=== PATIENT | female | born 1965 | race Caucasian/White ===

== ENCOUNTER 2023-02-12 10:02 | Emergency (ER) | payer OTHER, SELFPAY ==
[2023-02-12 10:07] VITALS: BP 128/62; PULSE 84; RESP 26; TEMP 36.9; O2SAT 94; BMI 58.6
--- NOTE | 2023-02-12 10:24 | XR_ITS ---
The [address] [address] Patient Name: DANIELLE MONTANA MRN: [id number] date: 1965 Sex: F Assigned Patient Location: ER Current Patient Location: ER Accession/Order Number: [id number] Exam Date: 02/12/2023 11:02 Report Date: 02/12/2023 11:22 At the request of: GERALDINE NESBITT Procedure: XR chest 2V PROCEDURE: XR chest 2V DATE: 02/12/2023 10:02 AM CDT COMPARISONS: CT chest from 12/29/2020 CLINICAL INDICATION: 57 years Female SHORTNESS OF BREATH FINDINGS: The heart size is normal and stable. There is slightly coarse diffuse increased markings throughout all lung gan. It is noted that there was prominent airspace disease on CT of 12/29/2020. It's possible the slightly coarse diffuse increased markings noted today are chronic lung changes associated with the previous CT findings. Alternatively, the findings on today's exam may represent some diffuse acute inflammatory process. There is no evidence of pleural effusion or pneumothorax. XR/XR chest 2V IMPRESSION: Diffuse slightly coarse increased markings as discussed above. Chronic changes seems most likely. Diffuse inflammatory infiltrate of the lungs is also possible. Electronically authenticated by: GABRIELLA GRANADOS Date: 02/12/2023 11:22
[2023-02-12 10:48] VITALS: RESP 18
[2023-02-12] MEDS: PREDNISONE 20 MG TABLET 60 MG PO (11:02)
[2023-02-12] MEDS: IPRATROPIUM/ALBUTEROL SULFATE 3 ML AMPUL.NEB IH (11:06)
[2023-02-12 11:43] VITALS: BP 130/82; PULSE 76; RESP 20; O2SAT 94
--- NOTE | 2023-02-12 14:44 | ED.URI1 ---
HPI - URI/Sore Throat General Chief Complaint: Upper Respiratory Infection Stated Complaint: URTI COMPLAINTS Time Seen by Provider: 02/12/23 10:28 Source: patient Limitations: no limitations History of Present Illness HPI Narrative: Have history of COPD coming to us with a few days history of cough productive of whitish sputum associated with the congestion and shortness of breath the patient mentioned that he is a COPD year with history of emphysema and she has not been responding to her albuterol at home Denying any chest pain nausea vomiting or any other concerns she also had some runny nose and nasal congestion Related Data Previous Rx's Medication Instructions Recorded azithromycin 250 mg tablet See Rx Instructions PO .COMPLEX #6 02/12/23 (Zithromax Z-Tao) tabs prednisone 50 mg tablet 50 mg PO DAILY 5 days #5 tabs 02/12/23 Allergies Allergy/AdvReac Type Severity Reaction Status Date / Time codeine Allergy Intermediate Verified 02/12/23 10:11 pregabalin [From Lyrica] Allergy Intermediate Verified 02/12/23 10:11 sulfamethoxazole Allergy Intermediate Verified 02/12/23 10:11 [From Bactrim] trimethoprim [From Bactrim] Allergy Intermediate Verified 02/12/23 10:11 Review of Systems ROS Status of ROS 10 or more systems reviewed and unremarkable except as noted in history and below PFSH PFSH Social History Smoking status: Current every day smoker Exam Narrative Exam Narrative: Nurses notes and vital signs reviewed and patient is not hypoxic. General: Well-appearing and in no apparent distress. Skin: Warm, dry, no pallor noted. No rash. Head: Normocephalic, atraumatic. Neck: Supple, non-tender. Eye: Pupils are equal, round and EOMI. No scleral icterus. Ears, Nose, Mouth, and Throat: TM are clear, no nasal mucosal hypertrophy. Oral mucosa is moist, no posterior oropharynx erythema, uvula is mid-line Cardiovascular: Regular Rate and Rhythm without murmur, gallop or rub. Respiratory: Bilateral expiratory lung wheezes in both lung gan Lungs are clear to auscultation, no wheezing, rales or rhonchi Chest Wall: no tenderness Back: No midline thoracic or lumbar vertebral tenderness. No CVA tenderness Musculoskeletal: normal ROM, no calf or popliteal tenderness, no lower extremity edema/swelling GI: Abdomen is soft, non-distended. Normal bowel sounds. No masses appreciated. No tenderness to palpation. No rebound, guarding, or rigidity noted. Neurological: A&O x4. No cranial nerve dysfunction observed. No truncal ataxia. Moves all extremities. Sensation intact. Psychiatric: Cooperative and interactive. Normal mood and affect. Constitutional Vital Signs, click to edit/add: Last Vital Signs Temp 98.4 F 02/12/23 10:07 Pulse 76 02/12/23 11:43 Resp 20 02/12/23 11:43 BP 130/82 02/12/23 11:43 Pulse Ox 94 L 02/12/23 11:43 O2 Del Method Room Air 02/12/23 11:43 Course Vital Signs Vital signs: Vital Signs Temperature 98.4 F 02/12/23 10:07 Pulse Rate 84 02/12/23 10:07 Respiratory Rate 26 H 02/12/23 10:07 Blood Pressure 128/62 02/12/23 10:07 Pulse Oximetry 94 L 02/12/23 10:07 Oxygen Delivery Method Room Air 02/12/23 10:07 Temperature 98.4 F 02/12/23 10:07 Pulse Rate 76 02/12/23 11:43 Respiratory Rate 20 02/12/23 11:43 Blood Pressure 130/82 02/12/23 11:43 Pulse Oximetry 94 L 02/12/23 11:43 Oxygen Delivery Method Room Air 02/12/23 11:43 MDM - URI/Sore Throat MDM Narrative Medical decision making narrative: The patient x-ray showed no acute significant pathology but she have history of COPD and should be covered with antibiotic as well as she already received breathing treatment and prednisone after which she was feeling better The patient was discharged home with a Z-Tao in addition to the prednisone with continue breathing treatment at home she is to come back to the ER in case of any new symptoms or concerns The patient is to follow up with primary care physician in next 2-3 days or to return to the emergency department should any of the signs or symptoms worsen or new symptoms develop. The patient agrees with the following Diagnosis and Treatment plan and the patient will be discharged home. Discharge Plan Discharge Chief Complaint: Upper Respiratory Infection Clinical Impression: COPD exacerbation Patient Disposition: Home, Self-Care Time of Disposition Decision: 11:32 Condition: Good Prescriptions / Home Meds: New azithromycin [Zithromax Z-Tao] 250 mg tablet See Rx Instructions .ROUTE .COMPLEX Qty: 6 0RF Rx Instructions: For 250 mg dose pack: take 500 mg today (day 1), then 250 mg for 4 days (days 2-5) prednisone 50 mg tablet 50 mg PO DAILY 5 Days Qty: 5 0RF Instructions: COPD (Chronic Obstructive Pulmonary Disease) (ED) Stand Alone Forms: Portal Instructions Referrals: Shaikh Vasquez MD [Primary Care Provider] - 1 week Discharge Date/Time: 02/12/23 11:46
== END 2023-02-12 11:46 | disposition home or self-care (01) ==
PROVIDERS: Emergency Provider Emergency Medicine; PCP Internal Medicine
DX: J44.1 Chronic obstructive pulmonary disease with (acute) exacerbation (principal); F17.210 Nicotine dependence, cigarettes, uncomplicated
CPT/HCPCS: 71046; 94640; 99283

== ENCOUNTER 2023-04-24 20:34 | Emergency (ER) | payer OTHER, SELFPAY ==
--- OUTSIDE RECORDS SUMMARY | 2023-04-24 20:42 | XMS_ITS | CCD ---
Author Name Unknown Address [address] [place] [address] Organization [facility] Care Team Providers Care Nursing Home Director Name Role Phone Tanja, Leda Unavailable Unavailable Unavailable Unavailable Unavailable Unavailable Unavailable Unavailable Tanja, Leda Unavailable Unavailable Tanja, Leda Unavailable Unavailable Unavailable Unavailable Unavailable Heath Kirkpatrick Attending Gisselle vailable Heath Kirkpatrick Referring Gisselle vailable Rumschlag, Mignon Primary Care Provider [phone] ALLAN SHARMAMPSAGER Referring Unavailab le RUMSCHLAG, MIGNON Primary Care Unavailable ALLAN SHARMAMPSAGER Referring Unavailab le RUMSCHLAG, MIGNON Primary Care Unavailable RAVISHANKAR KEMPSAGER Referring Unavailab le RUMSCHLAG, MIGNON Primary Care Unavailable Tanja 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, Leda Unavailable DR FLOR RIVERA Attending Unavailable NICOLE, DR FLOR Novoa Admitting Unavailable [facility] Primary Care Unavailable LIYAH, DR EBEN Couch Consulting Unavailblanca KAT, DR FRIEDA Tobar Consulting Unavailblanca e JULISSA, DR LO Hdz Consulting Unavailable NICOLE, DR FLOR Novoa Consulting Unavailable MARKER, DR KHAN Consulting Unavailable NANCI BEEBE Attending Unavailable NANCI BEEBE Admitting Unavailable JULISSA, DR LO Hdz Consulting Unavailable [facility] Primary Care Unavailable NANCI BEEBE Consulting Unavailable QUYNH ARCHER Attending Unavailable QUYNH ARCHER Admitting Unavailable [facility] Primary Care Unavailable GIANNI, QUYNH Consulting Unavailable Allergies Allergy Classification Reported Allergen(s) Allergy Type Date of Onset Reaction(s) Facility (8 sources) codeine; Translations: [Codeine] Drug Allergy 01-19-20 12 Nausea And Vomiting [facility] (4 sources) pregabalin; Translations: [Lyrica] Drug Allergy [facility] (4 sources) sulfamethoxazole / trimethoprim; Translations: [Bactrim] Drug Allergy [facility] (4 sources) -No Environmental Allergies; Translations: [-No Environmental Allergies] Allergy to substance (disorder) [facility] (2 sources) -No Known Food Allergies Allergy to substance (disorder) [facility] (3 sources) NSAIDs Propensity to adverse reactions to drug 02-24-20 15 Other (See Comments) [place], [place] (3 sources) pregabalin Drug Allergy 01-19-20 12 Other (See Comments) [place] (3 sources) Sulfamethoxazole / Trimethoprim Drug Allergy 09-18-19 18 Hives [place] (1 source) pregabalin Drug Allergy 12-31-19 22 [facility] (1 source) Sulfamethoxazole / Trimethoprim Drug Allergy 04-15-20 22 [facility] Medications Current Medications Medication Drug Class(es) Dates Sig (Normalized) Sig (Original) acetaminophen 325 mg oral tablet (3 sources) take 2 tablets by mouth every four hours as needed for pain acetaminophen (TYLENOL) 325 MG tablet Take 650 mg by mouth every 4 hours as needed for Pain 0 Active [id number] actuat albuterol 0.09 mg/actuat metered dose inhaler (8 sources) beta2-Adrenergic Agonist Start: 07-19-2018 Ventolin HFA 108 (90 Base)MCG/ACT Inhalation Aerosol, solution 07/19/2018 Provider: Start: 05-19-2018 End: 05-19-2018 VENTOLIN HFA 90MCG/ACTUAT TX SC 05/19/2018 - 05/19/2018 Provider: take 2 puff(s) by in halation every six hours as needed for wheezing albuterol sulfate HFA 108 (90 Base) MCG/ACT inhaler Inhale 2 puffs into the lungs every 6 hours as needed for Wheezing 0 Active take 1 puff(s) by in halation every six hours as needed Ventolin HFA 90 mcg/actuation inhalation HFA aerosol inhaler inhale 1 puff (90 mcg) by inhalation route every 6 hours as needed take 1 puff(s) by in halation every six hours as needed Ventolin HFA 90 mcg/actuation inhalation HFA aerosol inhaler inhale 1 puff (90 mcg) by inhalation route every 6 hours as needed 60 actuat budesonide 0.08 mg/actuat / formoterol fumarate 0.0045 mg/actuat metered dose inhaler (3 sources) Corticosteroid, beta2-Adrenergic Agonist take 2 puff(s) by inhalation twice daily budesonide-formoterol (SYMBICORT) 80-4.5 MCG/ACT AERO Inhale 2 puffs into the lungs 2 times daily 0 Active Calcium (2 sources) Phosphate Binder, Calcium Start: 2018 Calcium 600MG Oral Tablet 07/19/2018 Provider: Start: 09-14-2017 End: 09-14-2017 CALCIUM 600 600 mg calcium(1 ,500 MG) [facility] 09/14/2017 - 09/14/2017 Provider: calcium carbonate 1250 mg / cholecalciferol 200 unt oral tablet (3 sources) Vitamin D Start: 04-09-2014 take 1 tablet by mouth once daily, then take 2.5-500 tablets by mouth once calcium-vitamin D (OSCAL 500/200 D-3) 500-200 MG-UNIT per tablet TAKE ONE TABLET BY MOUTH ONCE A DAY 30 tablet 3 04/09/2014 Active cetirizine hydrochloride 10 mg oral tablet (3 sources) Histamine-1 Receptor Antagonist Start: 07-19-2018 ZyrTEC Allergy 10MG Oral Tablet 07/19/2018 Provider: Start: 11-14-2017 take 1 tablet by jayson once daily at bedtime as needed for cough Zyrtec 10 mg oral tablet 11/14/2017 take 1 tablet (10 mg) by oral route once daily at bedtime as needed for cough/congestion Start: 11-14-2017 End: 11-14-2017 ZYRTEC 10 mg [facility] 11/14/2017 - 11/14/2017 Provider: donepezil hydrochloride 10 mg oral tablet (3 sources) take 1 tablet by mouth once daily donepezil (ARICEPT) 10 MG tablet Take 10 mg by mouth nightly 0 Active DULoxetine 30 mg delayed release oral capsule (15 sources) Serotonin and Norepinephrine Reuptake Inhibitor Start: 07-20-19 DULoxetine HCl 30MG Oral Capsule, delayed-release particles 07/19/2018 Provider: Start: 05-19-2018 End: 05-19-2018 DULOXETINE 30MG [facility] 019 - 05/19/2018 Provider: Start: 05-19-2018 End: 05-19-2018 DULOXETINE 60MG [facility] 019 - 05/19/2018 Provider: Start: 03-07-2018 DULoxetine HCl 60MG Oral Capsule, delayed-release particles 07/19/2018 Provider: Start: 03-07-2018 take 1 capsule by [facility] once daily duloxetine 30 mg oral capsule,delayed release(DR/EC) 03/07/2018 take 1 capsule (30 mg) by oral route once daily, take with 60 mg capsule to equal 90 mg daily Start: 03-07-2018 End: 03-07-2018 DULOXETINE 60MG [facility] 018 - 03/07/2018 Provider: Start: 03-07-2018 End: 03-07-2018 DULOXETINE 30MG [facility] 018 - 03/07/2018 Provider: take 1 capsule by [facility] once daily duloxetine 30 mg oral capsule,delayed release(DR/EC) take 1 capsule (30 mg) by oral route once daily ergocalciferol 1.25 mg oral capsule (4 sources) Provitamin D2 Compound Start: 07-19-2018 Ergocalciferol [id number] Oral Capsule, conventional 07/19/2018 Provider: Start: 09-14-2017 take 1 capsule by [facility] every week Vitamin D2 50,000 unit oral capsule 09/14/2017 take 1 capsule (50,000 unit) by oral route once weekly 60 actuat fluticasone propionate 0.5 mg/actuat / salmeterol 0.05 mg/actuat dry powder inhaler (2 sources) Corticosteroid, beta2-Adrenergic Agonist Start: 07-20-2018 Advair Diskus 500-50MCG/DOSE Inhalation Aerosol Powder Breath Activated 07/20/2018 Provider: Leda Agrawal CNP Start: 07-12-2018 End: 07-20-2018 Advair Diskus 250-50MCG/DOSE Inhalation Aerosol Powder Breath Activated 07/12/2018 - 07/20/2018 Provider: Leda Agrawal CNP gabapentin 600 mg oral tablet (7 sources) Anti-epileptic Agent Start: 07-19-2018 Gabapenti n 600MG Oral Tablet 07/19/2018 Provider: Start: 05-19-2018 End: 05-19-2018 GABAPENTIN 300 mg MISC 05/19 - 05/19/2018 Provider: Start: 02-13-2018 End: 02-13-2018 Gabapentin 600MG OR TABS - 02/13/2018 Provider: Start: 09-26-2017 take 1 capsule by mo ut three times daily gabapentin 300 mg oral capsule 09/26/2017 take 1 capsule (300 mg) by oral route 3 times per day Start: 09-26-2017 End: 09-26-2017 GABAPENTIN 300 mg MISC 09/26 - 09/26/2017 Provider: hydroCHLOROthiazide 12.5 mg / lisinopril 10 mg oral tablet (9 sources) Thiazide Diuretic, Angiotensin Converting Enzyme Inhibitor Start: 07-19-2018 Lisinopril-hydroCHLOROthiazi de 10-12.5MG Oral Tablet 07/19/2018 Provider: Start: 05-19-2018 End: 05-19-2018 Lisinopril-hydroCHLOROthiazi de 10-12.5MG TABS 05/19/2018 - 05/19/2018 Provider: Conversion Provider Start: 09-26-2017 take 1 tablet by jayson once daily lisinopril-hydrochlorothiazide 10-12.5 m g oral tablet 09/26/2017 take 1 tablet by oral route once daily Start: 09-26-2017 End: 09-26-2017 Lisinopril-hydroCHLOROthiazi de 10-12.5MG TABS 09/26/2017 - 09/26/2017 Provider: hydrOXYzine pamoate 50 mg oral capsule (4 sources) Antihistamine Start: 07-19-2018 hydrOXYzine Pa moate 50MG Oral Capsule, conventional 07/19/2018 Provider: Start: 05-19-2018 End: 05-19-2018 HYDROXYZINE PAMOATE 50MG MIS C 05/19/2018 - 05/19/2018 Provider: Start: 03-13-2018 take 1 capsule by mo uth twice daily hydroxyzine pamoate 50 mg oral capsule 03/13/2018 take 1 capsule (50 mg) by oral route 2 times per day Start: 03-13-2018 End: 03-13-2018 HYDROXYZINE PAMOATE 50MG MIS C 03/13/2018 - 03/13/2018 Provider: meloxicam 15 mg oral tablet (5 sources) Nonsteroidal Anti-inflammatory Drug Start: 07-19-2018 Mobic 15MG Oral Tablet 07/19/2018 Provider: Start: 09-14-2017 End: 09-14-2017 Mobic 15MG OR TABS - 09/14/2017 Provider: omeprazole 40 mg delayed release oral capsule (9 sources) Proton Pump Inhibitor Start: 07-19-2018 Omeprazole 40MG Oral Capsule, delayed-release 07/19/2018 Provider: Start: 05-19-2018 End: 05-19-2018 Omeprazole 40MG OR CPDR 04/25 - 05/19/2018 Provider: Conversion Provider Start: 09-26-2017 End: 09-26-2017 take 1 capsule by mouth once daily before mealtime omeprazole 40 mg oral capsule,delayed release(DR/EC) 09/26/2017 take 1 capsule (40 mg) by oral route once daily before a meal take 2 capsules by m outh once daily omeprazole (PRILOSEC) 20 MG delayed release capsule Take 40 mg by mouth daily 0 Active QUEtiapine 25 mg oral tablet (3 sources) Atypical Antipsychotic take 1 tablet by mouth twice daily QUEtiapine (SEROQUEL) 25 MG tablet Take 25 mg by mouth 2 times daily 0 Active tiotropium 0.018 mg inhalant powder (3 sources) Anticholinergic Start: take 1 capsule by inhalation once daily tiotropium (SPIRIVA HANDIHALER) 18 MCG inhalation capsule Inhale 1 capsule into the lungs daily 30 capsule 11 02/21/2019 Active traMADol hydrochloride 50 mg oral tablet (6 sources) Opioid Agonist Start: traMADol HCl 50MG Oral Tablet 07/19/2018 Provider: Start: 05-19-2018 End: 05-19-2018 TRAMADOL 50 mg MISC 05/19/19 19 - 05/19/2018 Provider: Start: 11-14-2017 take 1 tablet by jayson th every eight hours as needed for pain tramadol 50 mg oral tablet 11/14/2017 take 1 tablet (50 mg) by oral route every 8 hours as needed for chronic back pain / osteoarthritis (M51.36/M19.90) Start: 11-14-2017 End: 11-14-2017 TRAMADOL 50 mg [facility] 11/15/19 18 - 11/14/2017 Provider: take 1 tablet by jayson th three times daily as needed tramadol 50 mg oral tablet take 1 tablet by oral route 3 times a day as needed traZODone hydrochloride 100 mg oral tablet (6 sources) Serotonin Reuptake Inhibitor Start: 07-19-2018 traZODone HCl 100MG Oral Tablet 07/19/2018 Provider: Start: 05-19-2018 End: 05-19-2018 TRAZODONE 100 mg [facility] 2018 - 05/19/2018 Provider: Start: 03-13-2018 take 1 tablet by jayson th once daily at bedtime trazodone 100 mg oral tablet 03/13/2018 take 1 tablet (100 mg) by oral route once daily at bedtime Start: 03-13-2018 End: 03-13-2018 TRAZODONE 100 mg [facility] 2017 - 03/13/2018 Provider: take 1 tablet by jayson th once daily at bedtime trazodone 100 mg oral tablet take 1 tablet (100 mg) by oral route once daily at bedtime Completed/Discontinued Medications Medication Drug Class(es) Dates Sig (Normalized) Sig (Original) calcium carbonate 1500 mg oral tablet (3 sources) Start: 09-14-2017 take 1 tablet by mouth twice daily Calcium 600 600 mg calcium (1,500 mg) oral tablet 09/14/2017 take 1 tablet by oral route twice daily Clindamycin (2 sources) Lincosamide Antibacterial Start: 02-13-2018 End: 02-13-2018 CLINDAMYCIN HCL 300MG MISC 02/13/2018 - 02/13/2018 Provider: Start: 02-13-2018 End: 02-20-2018 take 1 capsule by mouth twice daily clindamycin HCl 300 mg oral capsule 02/13/2018 02/20/2018 take 1 capsule (300 mg) by oral route 2 times per day for 7 days furosemide 20 mg oral tablet (4 sources) Loop Diuretic Start: 05-19-2018 End: 05-19-2018 Furosemide 20MG OR TABS 05/19/2018 - 05/19/2018 Provider: Conversion Provider take 1 tablet by mouth once harmeet y furosemide 20 mg oral tablet take 1 tablet (20 mg) by oral route once daily ibuprofen 800 mg oral tablet (4 sources) Nonsteroidal Anti-inflammatory Drug Start: 05-19-2018 End: 05-19-2018 Ibuprofen 800MG OR TABS 05/19/2018 - 05/19/2018 Provider: Conversion Provider End: 09-14-2017 take 1 tablet by mouth three times daily at mealtime ibuprofen 800 mg oral tablet 09/14/2017 take 1 tablet (800 mg) by oral route 3 times per day with food lidocaine 50 mg/ml topical cream (5 sources) Antiarrhythmic, Amide Local Anesthetic Start: 09-19-2017 lidocaine 5 % topical cream 09/19/2017 apply to affected area every 4-6 hours as needed for pain Start: 09-19-2017 lidocaine 5 % topical cream 09/19/2017 apply to affected area every 4-6 hours as needed for pain Start: 09-19-2017 End: 09-19-2017 Lidocaine 5% EX CREA 018 - 09/19/2017 Provider: mupirocin 20 mg/ml topical cream (2 sources) RNA Synthetase Inhibitor Antibacterial Start: 02-13-2018 End: 02-13-2018 Bactroban 2% EX CREA 02/13/2018 - 02/13/2018 Provider: Start: 02-13-2018 Bactroban 2 % topical cream 02/13/2018 apply a small amount to the affected area by topical route 3 times per day x 14 days predniSONE 20 mg oral tablet (2 sources) Start: 11-14-2017 End: 11-14-2017 take 1 tablet by mouth twice daily prednisone 20 mg oral tablet 11/14/2017 take 1 tablet (20 mg) by oral route 2 times per day x 7 days VITAMIN D2 50,000UNIT MISC (2 sources) Start: 05-19-2018 End: 05-19-2018 VITAMIN D2 50,000UNIT MISC 05/19/2018 - 05/19/2018 Provider: Start: 09-14-2017 End: 09-14-2017 VITAMIN D2 50,000UNIT MISC 0 09/14/2017 - 09/14/2017 Provider: Problems Active Problems Problem Classification Problem Date Documented Date Episodic/Chronic Anxiety disorders (1 source) Generalized anxiety disorder; Translations: [GENERALIZED ANXIETY DISORDER] Onset: 04-19-2022 Chronic Bacterial infection; unspecified site (2 sources) Bacterial infection, unspecified, in conditions classified elsewhere and of unspecified site; Translations: [Methicillin resistant Staphylococcus aureus in conditions classified elsewhere and of unspecified site] Onset: 02-13-2018 Episodic Cancer of cervix (3 sources) Malignant tumor of cervix; Translations: [Malignant neoplasm of cervix uteri, unspecified site] Onset: 05-22-2018 Chronic Chronic obstructive pulmonary disease and bronchiectasis (8 sources) Other emphysema; Translations: [Pulmonary emphysema] Onset: 01-23-2013 Resolved: 11-08-2013 11-08-2013 Chronic Disorders of lipid metabolism (2 sources) Hyperlipidemia, unspecified; Translations: [Mixed hyperlipidemia] Onset: 01-05-2022 Chronic E Codes: Fall (1 source) Unspecified fall, initial encounter; Translations: [UNSPECIFIED FALL INITIAL ENCOUNTER] Onset: 04-19-2022 Episodic Esophageal disorders (7 sources) Esophageal reflux; Translations: [Gastroesophageal reflux disease] Onset: 01-19-2012 01-19-2012 Chronic Essential hypertension (8 sources) Unspecified essential hypertension; Translations: [Essential hypertension] Onset: 01-19-2012 Resolved: 04-20-2015 04-20-2015 Chronic Fracture of upper limb (1 source) Ill-defined closed fractures of upper limb Episodic Malaise and fatigue (2 sources) Other malaise and fatigue Onset: 01-25-2018 Episodic Mood disorders (4 sources) Depressive disorder; Translations: [Bipolar disorder, unspecified] Onset: 11-08-2013 11-08-2013 Chronic Osteoarthritis (5 sources) Osteoarthrosis, unspecified whether generalized or localized, site unspecified; Translations: [Osteoarthritis] Onset: 01-19-2012 01-19-2012 Chronic Other aftercare (1 source) Other prison (current) drug therapy; Translations: [OTH STEAM BOX HAND CURRENT DRUG THERAPY] Onset: 04-19-2022 Episodic Other circulatory disease (1 source) Personal history of transient ischemic attack (TIA), and cerebral infarction without residual deficits; Translations: [PERS HX TIA AND CI NO RESID DEFICIT] Onset: 04-19-2022 Episodic Other connective tissue disease (2 sources) Muscle weakness (generalized) Onset: 01-25-2018 Episodic Other connective tissue disease (1 source) Myalgia and myositis, unspecified Episodic Other connective tissue disease (4 sources) Pain in right foot; Translations: [PAIN IN RIGHT FOOT] Onset: 02-08-2022 Episodic Other hereditary and degenerative nervous system conditions (1 source) Restless legs; Translations: [Restless leg] Chronic Other hereditary and degenerative nervous system conditions (1 source) Restless legs syndrome (RLS) Chronic Other hereditary and degenerative nervous system conditions (1 source) Restless legs syndrome; Translations: [Restless legs syndrome] Onset: 05-22-2018 Chronic Other lower respiratory disease (1 source) Shortness of breath Onset: 04-26-2018 Episodic Other nervous system disorders (1 source) Meralgia paresthetica Chronic Other nervous system disorders (1 source) Other chronic pain Onset: 02-13-2018 Chronic Other non-traumatic joint disorders (3 sources) Pain in left knee; Translations: [PAIN IN LEFT KNEE] Onset: 04-15-2022 Episodic Other non-traumatic joint disorders (1 source) Pain in right ankle and joints of right foot; Translations: [PAIN IN RIGHT ANKLE] Onset: 02-11-2022 Episodic Other nutritional; endocrine; and metabolic disorders (6 sources) Body Mass Index 50.0-59.9, adult Onset: 09-14-2017 Chronic Other nutritional; endocrine; and metabolic disorders (3 sources) Body mass index 40+ - severely obese; Translations: [Morbid obesity with BMI of 50.0-59.9, adult] Onset: 11-08-2013 11-08-2013 Chronic Other nutritional; endocrine; and metabolic disorders (1 source) Morbid (severe) obesity due to excess calories; Translations: [MORBID SEVERE OBES D/T EXCESS LUMA] Onset: 04-19-2022 Chronic Other nutritional; endocrine; and metabolic disorders (1 source) Body mass index (BMI) 60.0-69.9, adult; Translations: [BODY MASS INDEX BMI 60.0-69.9 ADULT] Onset: 04-19-2022 Chronic Other nutritional; endocrine; and metabolic disorders (1 source) Body mass index (BMI) 50.0-59.9, adult; Translations: [BODY MASS INDEX BMI 50.0-59.9 ADULT] Onset: 01-05-2022 Chronic Residual codes; unclassified (1 source) Unspecified sleep apnea Onset: 10-12-2017 Chronic Residual codes; unclassified (2 sources) Hallucinations Onset: 01-25-2018 Episodic Spondylosis; intervertebral disc disorders; other back problems (2 sources) Degeneration of lumbar or lumbosacral intervertebral disc Onset: 11-14-2017 Chronic Spondylosis; intervertebral disc disorders; other back problems (3 sources) Chronic low back pain; Translations: [Chronic neck pain] Episodic Substance-related disorders (4 sources) Smoker; Translations: [Nicotine dependence, cigarettes, uncomplicated] Onset: 01-19-2012 Resolved: 01-23-2013 12-29-2014 Chronic Superficial injury; contusion (1 source) Contusion of left knee, initial encounter; Translations: [CONTUSION LEFT KNEE INITIAL ENC] Onset: 04-19-2022 Episodic Unclassified (1 source) CONTACT W/AND (SUSP) EXPOS COVID-19; Translations: [CONTACT W/AND (SUSP) EXPOS COVID-19] Onset: 01-05-2022 Past or Other Problems Problem Classification Problem Date Documented Da te Episodic/Chronic Administrative/social admission (1 source) Other reasons for seeking consultation Onset: 09-14-2017 Episodic Gastrointestinal hemorrhage (4 sources) Hemorrhage of anus and rectum; Translations: [Gastrointestinal hemorrhage, unspecified] Onset: 12-30-2021 Episodic Noninfectious gastroenteritis (1 source) Noninfective gastroenteritis and colitis, unspecified; Translations: [NONINFECTIVE GE AND COLITIS UNS] Onset: 01-05-2022 Episodic Other bone disease and musculoskeletal deformities (1 source) 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 Other bone disease and musculoskeletal deformities (1 source) Other disorders of bone and cartilage Onset: 09-14-2017 Episodic Other connective tissue disease (2 sources) Fibromyositis; Translations: [Fibromyalgia] Onset: 05-22-2018 Episodic Other connective tissue disease (3 sources) Fibromyalgia; Translations: [Fibromyalgia syndrome] Onset: 11-08-2013 11-08-2013 Episodic Other nervous system disorders (3 sources) Meralgia paresthetica of right leg; Translations: [Meralgia paresthetica of right side] Onset: 11-08-2013 Resolved: 03-27-2018 03-27-2018 Other non-traumatic joint disorders (3 sources) Pain in joint, lower leg Onset: 09-14-2017 Episodic Other non-traumatic joint disorders (1 source) Pain in joint, pelvic region and thigh Onset: 09-20-2017 Episodic Other nutritional; endocrine; and metabolic disorders (3 sources) Obesity; Translations: [Obesity] Onset: 01-19-2012 Resolved: 11-08-2013 11-08-2013 Chronic Other screening for suspected conditions (not mental disorders or infectious disease) (2 sources) Screening for diabetes mellitus; Translations: [Special screening for malignant neoplasms of colon] Onset: 09-14-2017 Episodic Residual codes; unclassified (1 source) Family history of other neurological diseases Onset: 01-25-2018 Episodic Residual codes; unclassified (1 source) Edema Onset: 01-25-2018 Episodic Residual codes; unclassified (1 source) Memory loss Onset: 01-25-2018 Episodic Residual codes; unclassified (3 sources) Memory impairment; Translations: [Memory change] Onset: 02-13-2018 02-13-2018 Episodic Results Test Name Value Interpretation Reference Range Facility ANTIBODY ID PANELon 01-03-20 22 ANTIBODY ID PANEL Antibody ID Anti-Jka Normal [facility] Comment on above: Performed By: #### C MP, HSTROPN #### [facility] [address] [place] [address] Dr. Steve Valentin CBC AUTO DIFFon 12-31-2021 BASO # 0.0 103/ul Normal 0.0-0.1 [facility] Comment on above: Performed By: #### C MP, HSTROPN #### [facility] [address] [place] [address] Dr. Steve Valentin Basophils/100 WBC (Bld) 0.9 % Normal 0.2-2.0 [facility] Comment on above: Performed By: #### C MP, HSTROPN #### [facility] [address] [address] [address] Steve Valentin EO # 0.2 103/ul Normal 0.0-0.7 [facility] Comment on above: Performed By: #### C MP, HSTROPN #### [facility] [address] [address] [address] Steve Valentin Eosinophils/100 WBC (Bld) 4.3 % Normal 0.9-7.0 [facility] Comment on above: Performed By: #### C TABBY, HSTROPN #### [facility] [address] [place] [address] Dr. Steve Valentin Erythrocyte distribution width (RBC) [Ratio] 14.1 % Normal 11.0-15.0 [facility] Comment on above: Performed By: #### C TABBY, HSTROPN #### [facility] [address] [place] [address] Dr. Steve Valentin Hematocrit (Bld) [Volume fraction] 34.6 % Critically low 36.0-48.0 [facility] Comment on above: Performed By: #### C TABBY, HSTROPN #### [facility] [address] [place] [address] Dr. Steve Valentin Hemoglobin (Bld) [Mass/Vol] 10.9 g/dL Critically low 12.0-16.0 [facility] Comment on above: Performed By: #### C TABBY, HSTROPN #### [facility] [address] [place] [address] Dr. Steve Valentin IG # 0.01 10e3/ul Normal 0.00-0.03 [facility] Comment on above: Performed By: #### C TABBY, HSTROPN #### [facility] [address] [place] [address] Dr. Steve Valentin IG % 0.3 % Normal 0.0-0.5 [facility] Comment on above: Performed By: #### C TABBY, HSTROPN #### [facility] [address] [place] [address] Dr. Steve Valentin LYMPH # 0.9 103/ul Critically low 1.2-3.8 [facility] Comment on above: Performed By: #### C TABBY, HSTROPN #### [facility] [address] [place] [address] Dr. Steve Valentin Lymphocytes/100 WBC (Bld) 26.3 % Normal 20.5-60.0 [facility] Comment on above: Performed By: #### C TABBY, HSTROPN #### [facility] [address] [place] [address] Dr. Steve Valentin MANUAL DIFF REQ NO Normal [facility] Comment on above: Performed By: #### C MP, HSTROPN #### [facility] [address] [place] [address] Dr. Steve Valentin MCH (RBC) [Entitic mass] 26.7 pg Normal 26.7-34.0 [facility] Comment on above: Performed By: #### C MP, HSTROPN #### [facility] [address] [place] [address] Dr. Steve Valentin MCHC (RBC) [Mass/Vol] 31.5 g/dL Normal 29.9-35.2 [facility] Comment on above: Performed By: #### C MP, HSTROPN #### [facility] [address] [place] [address] Dr. Steve Valentin MCV (RBC) [Entitic vol] 84.8 fL Normal 81.0-99.0 [facility] Comment on above: Performed By: #### C MP, HSTROPN #### [facility] [address] [place] [address] Dr. Steve Valentin MONO # 0.3 103/ul Normal 0.3-0.8 [facility] Comment on above: Performed By: #### C MP, HSTROPN #### [facility] [address] [place] [address] Dr. Steve Valentin Monocytes/100 WBC (Bld) 9.5 % Normal 1.7-12.0 [facility] Comment on above: Performed By: #### C MP, HSTROPN #### [facility] [address] [place] [address] Dr. Steve Valentin NEUT # 2.0 103/ul Normal 1.4-6.5 [facility] Comment on above: Performed By: #### C MP, HSTROPN #### [facility] [address] [place] [address] Dr. Steve Valentin Neutrophils/100 WBC (Bld) 58.7 % Normal 43.0-75.0 [facility] Comment on above: Performed By: #### C TABBY HSTROPN #### [facility] [address] [place] [address] Dr. Steve Valentin Platelet mean volume (Bld) [Entitic vol] 10.5 fL Normal 9.5-13.5 [facility] Comment on above: Performed By: #### C TABBY, HSTROPN #### [facility] [address] [place] [address] Dr. Steve Valentin PLT 164 103/ul Normal 150-450 [facility] Comment on above: Performed By: #### C TABBY, HSTROPN #### [facility] [address] [place] [address] Dr. Steve Valentin RBC 4.08 106/ul Critically low 4.20-5.40 [facility] Comment on above: Performed By: #### C TABBY HSTROPN #### [facility] [address] [place] [address] Dr. Steve Valentin WBC 3.5 103/ul Critically low 4.0-11.0 [facility] Comment on above: Performed By: #### C TABBY, HSTROPN #### [facility] [address] [place] [address] Dr. Steve Valentin PROF 14(COMP METB)on 022 Albumin [Mass/Vol] 3.0 g/dL Critically low 3.4-5.0 [facility] Comment on above: Performed By: #### C MP #### [facility] [address] [place] [address] Dr. Steve Valentin Albumin/Globulin [Mass ratio] 1.0 {ratio} Normal [facility] Comment on above: Performed By: #### C MP #### [facility] [address] [place] [address] Dr. Steve Valentin ALP [Catalytic activity/Vol] 56 U/L Normal 46-116 [facility] Comment on above: Performed By: #### C MP #### [facility] [address] [address] [address] Steve Valentin ALT [Catalytic activity/Vol] 20 U/L Normal 14-59 [facility] Comment on above: Performed By: #### C MP #### [facility] [address] [place] [address] Dr. Steve Valentin Anion gap [Moles/Vol] 9.3 mmol/L Normal [facility] Comment on above: Performed By: #### C MP #### [facility] [address] [address] [address] Steve Valentin AST [Catalytic activity/Vol] 17 U/L Normal 15-37 [facility] Comment on above: Performed By: #### C MP #### [facility] [address] [place] [address] Dr. Steve Valentin Bilirubin [Mass/Vol] 0.2 mg/dL Normal 0.2-1.0 [facility] Comment on above: Performed By: #### C MP #### [facility] [address] [place] [address] Dr. Steve Valentin Calcium [Mass/Vol] 8.8 mg/dL Normal 8.5-10.1 [facility] Comment on above: Performed By: #### C MP #### [facility] [address] [place] [address] Dr. Steve Valentin Chloride [Moles/Vol] 106 mmol/L Normal 98-107 [facility] Comment on above: Performed By: #### C MP #### [facility] [address] [place] [address] Dr. Steve Valentin CO2 [Moles/Vol] 26.5 mmol/L Normal 21.0-32.0 [facility] Comment on above: Performed By: #### C MP #### [facility] [address] [place] [address] Dr. Steve Valentin Creatinine [Mass/Vol] 0.92 mg/dL Normal 0.55-1.02 [facility] Comment on above: Performed By: #### C MP #### [facility] [address] [place] [address] Dr. Steve Valentin EGFR-AF RWANDAN >60 Normal >=60 [facility] Comment on above: Performed By: #### C MP #### [facility] [address] [address] [address] Steve Valentin EGFR-NON AF RWANDAN >60 Normal >=60 [facility] Comment on above: Performed By: #### C MP #### [facility] [address] [address] [address] Steve Valentin Globulin (S) [Mass/Vol] 2.9 g/dL Normal [facility] Comment on above: Performed By: #### C MP #### [facility] [address] [address] [address] Steve Valentin Glucose [Mass/Vol] 97 mg/dL Normal 74-106 [facility] Comment on above: Performed By: #### C MP #### [facility] [address] [address] [address] Steve Valentin Potassium [Moles/Vol] 3.8 mmol/L Normal 3.5-5.1 [facility] Comment on above: Performed By: #### C MP #### [facility] [address] [address] [address] Steve Valentin Protein [Mass/Vol] 5.9 g/dL Critically low 6.4-8.2 [facility] Comment on above: Performed By: #### C MP #### [facility] [address] [address] [address] Steve Vlaentin Sodium [Moles/Vol] 138 mmol/L Normal 136-145 [facility] Comment on above: Performed By: #### C MP #### [facility] [address] [address] [address] Steve Valentin Urea nitrogen [Mass/Vol] 5.0 mg/dL Critically low 7.0-18.0 [facility] Comment on above: Performed By: #### C MP #### [facility] [address] [address] [address] Steve Valentin Urea nitrogen/Creatinin e [Mass ratio] 5.4 mg/mg Normal [facility] Comment on above: Performed By: #### C MP #### [facility] [address] [address] [address] Steve Valentin CBC AUTO DIFFon 12-30-2021 BASO # 0.0 103/ul Normal 0.0-0.1 [facility] Comment on above: Performed By: #### C BC #### [facility] [address] [address] [address] Steve Valentin Basophils/100 WBC (Bld) 0.5 % Normal 0.2-2.0 [facility] Comment on above: Performed By: #### C BC #### [facility] [address] [address] [address] Steve Valentin EO # 0.1 103/ul Normal 0.0-0.7 [facility] Comment on above: Performed By: #### C BC #### [facility] [address] [address] [address] Steve Valentin Eosinophils/100 WBC (Bld) 3.2 % Normal 0.9-7.0 [facility] Comment on above: Performed By: #### C BC #### [facility] [address] [place] [address] Dr. Steve Valentin Erythrocyte distribution width (RBC) [Ratio] 14.0 % Normal 11.0-15.0 [facility] Comment on above: Performed By: #### C BC #### [facility] [address] [place] [address] Dr. Steve Valentin Hematocrit (Bld) [Volume fraction] 38.3 % Normal 36.0-48.0 [facility] Comment on above: Performed By: #### C BC #### [facility] [address] [address] [address] Steve Valentin Hemoglobin (Bld) [Mass/Vol] 11.7 g/dL Critically low 12.0-16.0 [facility] Comment on above: Performed By: #### C BC #### [facility] [address] [address] [address] Steve Valentin IG # 0.01 10e3/ul Normal 0.00-0.03 [facility] Comment on above: Performed By: #### C BC #### [facility] [address] [place] [address] Dr. Steve Valentin IG % 0.2 % Normal 0.0-0.5 [facility] Comment on above: Performed By: #### C BC #### [facility] [address] [place] [address] Dr. Steve Valentin LYMPH # 1.3 103/ul Normal 1.2-3.8 [facility] Comment on above: Performed By: #### C BC #### [facility] [address] [place] [address] Dr. Steve Valentin Lymphocytes/100 WBC (Bld) 29.6 % Normal 20.5-60.0 [facility] Comment on above: Performed By: #### C BC #### [facility] [address] [place] [address] Dr. Steve Valentin MANUAL DIFF REQ NO Normal [facility] Comment on above: Performed By: #### C BC #### [facility] [address] [place] [address] Dr. Steve Valentin MCH (RBC) [Entitic mass] 26.0 pg Critically low 26.7-34.0 [facility] Comment on above: Performed By: #### C BC #### [facility] [address] [place] [address] Dr. Steve Valentin MCHC (RBC) [Mass/Vol] 30.5 g/dL Normal 29.9-35.2 [facility] Comment on above: Performed By: #### C BC #### [facility] [address] [place] [address] Dr. Steve Valentin MCV (RBC) [Entitic vol] 85.1 fL Normal 81.0-99.0 [facility] Comment on above: Performed By: #### C BC #### [facility] [address] [place] [address] Dr. Steve Valentin MONO # 0.5 103/ul Normal 0.3-0.8 [facility] Comment on above: Performed By: #### C BC #### [facility] [address] [place] [address] Dr. Steve Valentin Monocytes/100 WBC (Bld) 10.6 % Normal 1.7-12.0 [facility] Comment on above: Performed By: #### C BC #### [facility] [address] [place] [address] Dr. Steve Valentin NEUT # 2.4 103/ul Normal 1.4-6.5 [facility] Comment on above: Performed By: #### C BC #### [facility] [address] [place] [address] Dr. Steve Valentin Neutrophils/100 WBC (Bld) 55.9 % Normal 43.0-75.0 [facility] Comment on above: Performed By: #### C BC #### [facility] [address] [place] [address] Dr. Steve Valentin Platelet mean volume (Bld) [Entitic vol] 10.0 fL Normal 9.5-13.5 [facility] Comment on above: Performed By: #### C BC #### [facility] [address] [place] [address] Dr. Steve Valentin PLT 169 103/ul Normal 150-450 [facility] Comment on above: Performed By: #### C BC #### [facility] [address] [place] [address] Dr. Steve Valentin RBC 4.50 106/ul Normal 4.20-5.40 [facility] Comment on above: Performed By: #### C BC #### [facility] [address] [place] [address] Dr. Steve Valentin WBC 4.4 103/ul Normal 4.0-11.0 [facility] Comment on above: Performed By: #### C BC #### [facility] [address] [place] [address] Dr. Steve Valentin BASO # 0.0 103/ul Normal 0.0-0.1 [facility] Comment on above: Performed By: #### C BC #### [facility] [address] [place] [address] Dr. Steve Valentin Basophils/100 WBC (Bld) 0.4 % Normal 0.2-2.0 [facility] Comment on above: Performed By: #### C BC #### [facility] [address] [place] [address] Dr. Steve Valentin EO # 0.2 103/ul Normal 0.0-0.7 [facility] Comment on above: Performed By: #### C BC #### [facility] [address] [place] [address] Dr. Steve Valentin Eosinophils/100 WBC (Bld) 2.6 % Normal 0.9-7.0 [facility] Comment on above: Performed By: #### C BC #### [facility] [address] [place] [address] Dr. Steve Valentin Erythrocyte distribution width (RBC) [Ratio] 13.9 % Normal 11.0-15.0 [facility] Comment on above: Performed By: #### C BC #### [facility] [address] [place] [address] Dr. Steve Valentin Hematocrit (Bld) [Volume fraction] 39.1 % Normal 36.0-48.0 [facility] Comment on above: Performed By: #### C BC #### [facility] [address] [place] [address] Dr. Steve Valentin Hemoglobin (Bld) [Mass/Vol] 12.3 g/dL Normal 12.0-16.0 [facility] Comment on above: Performed By: #### C BC #### [facility] [address] [place] [address] Dr. Steve Valentin IG # 0.02 10e3/ul Normal 0.00-0.03 [facility] Comment on above: Performed By: #### C BC #### [facility] [address] [place] [address] Dr. Steve Valentin IG % 0.4 % Normal 0.0-0.5 [facility] Comment on above: Performed By: #### C BC #### [facility] [address] [place] [address] Dr. Steve Valentin LYMPH # 1.1 103/ul Critically low 1.2-3.8 [facility] Comment on above: Performed By: #### C BC #### [facility] [address] [place] [address] Dr. Steve Valentin Lymphocytes/100 WBC (Bld) 18.9 % Critically low 20.5-60.0 [facility] Comment on above: Performed By: #### C BC #### [facility] [address] [place] [address] Dr. Steve Valentin MANUAL DIFF REQ NO Normal [facility] Comment on above: Performed By: #### C BC #### [facility] [address] [place] [address] Dr. Steve Valentin MCH (RBC) [Entitic mass] 26.3 pg Critically low 26.7-34.0 [facility] Comment on above: Performed By: #### C BC #### [facility] [address] [place] [address] Dr. Steve Valentin MCHC (RBC) [Mass/Vol] 31.5 g/dL Normal 29.9-35.2 [facility] Comment on above: Performed By: #### C BC #### [facility] [address] [place] [address] Dr. Steve Valentin MCV (RBC) [Entitic vol] 83.7 fL Normal 81.0-99.0 [facility] Comment on above: Performed By: #### C BC #### [facility] [address] [place] [address] Dr. Steve Valentin MONO # 0.6 103/ul Normal 0.3-0.8 [facility] Comment on above: Performed By: #### C BC #### [facility] [address] [place] [address] Dr. Steve Valentin Monocytes/100 WBC (Bld) 10.0 % Normal 1.7-12.0 [facility] Comment on above: Performed By: #### C BC #### [facility] [address] [place] [address] Dr. Steve Valentin NEUT # 3.9 103/ul Normal 1.4-6.5 [facility] Comment on above: Performed By: #### C BC #### [facility] [address] [place] [address] Dr. Steve Valentin Neutrophils/100 WBC (Bld) 67.7 % Normal 43.0-75.0 [facility] Comment on above: Performed By: #### C BC #### [facility] [address] [place] [address] Dr. Steve Valentin Platelet mean volume (Bld) [Entitic vol] 10.0 fL Normal 9.5-13.5 [facility] Comment on above: Performed By: #### C BC #### [facility] [address] [place] [address] Dr. Steve Valentin PLT 200 103/ul Normal 150-450 [facility] Comment on above: Performed By: #### C BC #### [facility] [address] [place] [address] Dr. Steve Valentin RBC 4.67 106/ul Normal 4.20-5.40 [facility] Comment on above: Performed By: #### C BC #### [facility] [address] [place] [address] Dr. Steve Valentin WBC 5.7 103/ul Normal 4.0-11.0 [facility] Comment on above: Performed By: #### C BC #### [facility] [address] [place] [address] ABD/PELV W CONon 12-31-19 CT ABD/PELV W CON EXAMINATION: CT ABD/PELV W CON HISTORY: Lower gastrointestinal hemorrhage ; blood in stool COMPARISON: No relevant comparison available. TECHNIQUE: Axial, Coronal, and Sagittal images were created with IV contrast. Dose reduction techniques were achieved by using automated exposure control and/or adjustment of mA and/or kV according to patient size and/or use of iterative reconstruction technique. FINDINGS: LUNG BASES: No visible pulmonary or pleural disease. LIVER: No enlargement, atrophy, suspicious density, or significant focal lesion. BILIARY: No dilatation or calcification. PANCREAS: No lesion, fluid collection, or abnormal duct dilatation. SPLEEN: No enlargement or focal lesion. ADRENALS: No mass or enlargement. KIDNEYS: No mass, obstruction, or calcification. BOWEL/MESENTERY: Mild circumferential wall thickening of the distal transverse colon and descending colon without significant pericolonic inflammatory changes. Diverticulosis of sigmoid colon without acute inflammatory changes. No obstruction or focal wall thickening/mass. AORTA/VASCULAR: No aneurysm or dissection. RETROPERITONEUM: No mass or adenopathy. LYMPH NODES: No adenopathy. URINARY BLADDER: No visible focal wall thickening, lesion, or calculus. PELVIC ORGANS: Hysterectomy. ABDOMINAL WALL: No mass or hernia. BONES: L5-S1 moderate degenerative disc disease. OTHER: Negative. IMPRESSION: 1. Suspect mild colitis of the distal transverse and descending colon. 2. Diverticulosis of sigmoid colon. 3. No appreciable mass. No obstruction. Electronically authenticated by: LO COSTA Date: 2021-12-30 08:30 Normal [facility] Covid-19 PCR (CVDTB)on SARS-CoV-2 (COVID-19) RNA RADHA+probe Ql (Unsp spec) Not detected Normal NOT DETECTED [facility] Comment on above: Result Comment: When diagnostic testing is negative, the possibility of a false negative should be considered in the context of a patient's recent exposures and the presence of clinical signs and symptoms consistent with SARS-CoV-2. This test is not yet approved or cleared by the [place] FDA. When there are no FDA-approved or cleared tests available, and other criteria are met, FDA can make tests available under an emergency access mechanism called an Emergency Use Authorization (EUA). The EUA for this test is supported by the [place] of Health and Human Service's declaration that circumstances exist to justify the emergency use of in vitro diagnostics for the detection and/or diagnosis of the virus that causes COVID-19. This EUA will remain in effect for the duration of the COVID-19 declaration justifying emergency of IVDs, unless it is terminated or revoked by the FDA (after which the test may no longer be used). Performed By: #### C VDTB #### [facility] [address] [place] [address] Dr. Steve Valentin DIRECT COOMBSon 12-30-2021 DIRECT AMARJIT Negative Normal [facility] Comment on above: Performed By: #### C TABBY, HSTROPN #### [facility] [address] [place] [address] Dr. Steve Valentin LACTATE/LACTIC ACIDon 2021 Lactate [Moles/Vol] 1.2 mmol/L Normal 0.4-1.9 [facility] Comment on above: Performed By: #### L ACT #### [facility] [address] [place] [address] Dr. Steve Valentin PROF 14(COMP METB)on 022 Albumin [Mass/Vol] 3.4 g/dL Normal 3.4-5.0 [facility] Comment on above: Performed By: #### C TABBY, HSTROPN #### [facility] [address] [place] [address] Dr. Steve Valentin Albumin/Globulin [Mass ratio] 1.1 {ratio} Normal [facility] Comment on above: Performed By: #### C TABBY, HSTROPN #### [facility] [address] [place] [address] Dr. Steve Valentin ALP [Catalytic activity/Vol] 66 U/L Normal 46-116 [facility] Comment on above: Performed By: #### C TABBY, HSTROPN #### [facility] [address] [place] [address] Dr. Steve Valentin ALT [Catalytic activity/Vol] 18 U/L Normal 14-59 [facility] Comment on above: Performed By: #### C TABBY, HSTROPN #### [facility] [address] [place] [address] Dr. Steve Valentin Anion gap [Moles/Vol] 9.1 mmol/L Normal [facility] Comment on above: Performed By: #### C TABBY, HSTROPN #### [facility] [address] [place] [address] Dr. Steve Valentin AST [Catalytic activity/Vol] 14 U/L Critically low 15-37 [facility] Comment on above: Performed By: #### C TABBY, HSTROPN #### [facility] [address] [address] [address] Steve Valentin Bilirubin [Mass/Vol] 0.3 mg/dL Normal 0.2-1.0 [facility] Comment on above: Performed By: #### C MP, HSTROPN #### [facility] [address] [address] [address] Steve Valentin Calcium [Mass/Vol] 9.2 mg/dL Normal 8.5-10.1 [facility] Comment on above: Performed By: #### C MP, HSTROPN #### [facility] [address] [address] [address] Steve Valentin Chloride [Moles/Vol] 104 mmol/L Normal 98-107 [facility] Comment on above: Performed By: #### C MP, HSTROPN #### [facility] [address] [place] [address] Dr. Steve Valentin CO2 [Moles/Vol] 25.5 mmol/L Normal 21.0-32.0 [facility] Comment on above: Performed By: #### C MP, HSTROPN #### [facility] [address] [address] [address] Steve Valentin Creatinine [Mass/Vol] 0.94 mg/dL Normal 0.55-1.02 [facility] Comment on above: Performed By: #### C MP, HSTROPN #### [facility] [address] [place] [address] Dr. Steve Valentin EGFR-AF RWANDAN >60 Normal >=60 [facility] Comment on above: Performed By: #### C MP, HSTROPN #### [facility] [address] [place] [address] Dr. Steve Valentin EGFR-NON AF RWANDAN >60 Normal >=60 [facility] Comment on above: Performed By: #### C MP, HSTROPN #### [facility] [address] [place] [address] Dr. Steve Valentin Globulin (S) [Mass/Vol] 3.1 g/dL Normal [facility] Comment on above: Performed By: #### C MP, HSTROPN #### [facility] [address] [address] [address] Steve Valentin Glucose [Mass/Vol] 98 mg/dL Normal 74-106 [facility] Comment on above: Performed By: #### C MP, HSTROPN #### [facility] [address] [place] [address] Dr. Steve Valentin Potassium [Moles/Vol] 3.6 mmol/L Normal 3.5-5.1 [facility] Comment on above: Performed By: #### C MP, HSTROPN #### [facility] [address] [address] [address] Steve Valentin Protein [Mass/Vol] 6.5 g/dL Normal 6.4-8.2 [facility] Comment on above: Performed By: #### C MP, HSTROPN #### [facility] [address] [place] [address] Dr. Steve Valentin Sodium [Moles/Vol] 135 mmol/L Critically low 136-145 [facility] Comment on above: Performed By: #### C MP, HSTROPN #### [facility] [address] [place] [address] Dr. Steve Valentin Urea nitrogen [Mass/Vol] 11.0 mg/dL Normal 7.0-18.0 [facility] Comment on above: Performed By: #### C MP, HSTROPN #### [facility] [address] [place] [address] Dr. Steve Valentin Urea nitrogen/Creatinin e [Mass ratio] 11.7 mg/mg Normal [facility] Comment on above: Performed By: #### C MP, HSTROPN #### [facility] [address] [place] [address] Dr. Steve Valentin TROPONIN, HIGH SENSITIVITYon 12-30-2021 HSTROP 8.6 pg/mL Normal 4.0-51.3 [facility] Comment on above: Result Comment: CUT- OFF POINTS HAVE BEEN ESTABLISHED BASED ON THE FOURTH UNIVERSAL DEFINITIONS OF MYOCARDIAL INFARCTION. THE UPPER REFERENCE LIMIT (URL) OF TROPONIN, DEFINED THE 99TH PERCENTILE OF cTnI DISTRIBUTION IN A REFERENCE POPULATION, HAS BEEN CONFIRMED THE DECISION THRESHOLD FOR TX DIAGNOSIS. Performed By: #### C MP, HSTROPN #### [facility] [address] [place], [place] [address] Dr. Steve Valentin TYPE AND SCREENon 12-30-2021 TYPE AND SCREEN Positive Normal [facility] Comment on above: Performed By: #### T NS #### [facility] [address] [place], [place] [address] Dr. Steve Valentin XR CERVICAL SPINE (2-3 VIEWS )on 01-20-2020 XR CERVICAL SPINE (2-3 VIEWS) EXAMINATION: XRAY VIEWS OF THE CERVICAL SPINE 01/20/2020 9:56 am COMPARISON: None. HISTORY: ORDERING SYSTEM PROVIDED HISTORY: Chronic neck pain TECHNOLOGIST PROVIDED HISTORY: chronic neck pain with left arm pain FINDINGS: There is moderate C5-6 and marked C6-7 joint space compromise with mild to moderate anterior and mild posterior spurring at these levels. The remaining disc spaces and vertical heights of the vertebral bodies are maintained No fracture, dislocation or significant prevertebral soft tissue swelling IMPRESSION: Multilevel degenerative changes Interpreted by: Yaritza Pinedo MD Signed by: Yaritza Pinedo MD 01/20/20 Final result Normal [facility] Multilevel degenerative changes [place], [place] EXAMINATION: XRAY VIEWS OF THE CERVICAL SPINE 01/20/2020 9:56 am COMPARISON: None. HISTORY: ORDERING SYSTEM PROVIDED HISTORY: Chronic neck pain TECHNOLOGIST PROVIDED HISTORY: chronic neck pain with left arm pain FINDINGS: There is moderate C5-6 and marked C6-7 joint space compromise with mild to moderate anterior and mild posterior spurring at these levels. The remaining disc spaces and vertical heights of the vertebral bodies are maintained No fracture, dislocation or significant prevertebral soft tissue swelling [place], [place] Tarik, Mhpn Incoming Radiant Results From [employer] - 01/20/2020 11:34 AM EDT EXAMINATION: XRAY VIEWS OF THE CERVICAL SPINE 01/20/2020 9:56 am COMPARISON: None. HISTORY: ORDERING SYSTEM PROVIDED HISTORY: Chronic neck pain TECHNOLOGIST PROVIDED HISTORY: chronic neck pain with left arm pain FINDINGS: There is moderate C5-6 and marked C6-7 joint space compromise with mild to moderate anterior and mild posterior spurring at these levels. The remaining disc spaces and vertical heights of the vertebral bodies are maintained No fracture, dislocation or significant prevertebral soft tissue swelling IMPRESSION: Multilevel degenerative changes [facility] ID XR LUMBAR SPINE (2-3 VIEWS)o n 01-20-2020 XR LUMBAR SPINE (2-3 VIEWS) EXAMINATION: THREE XRAY VIEWS OF THE LUMBAR SPINE 01/20/2020 9:56 am COMPARISON: None. HISTORY: ORDERING SYSTEM PROVIDED HISTORY: Chronic bilateral low back pain without sciatica TECHNOLOGIST PROVIDED HISTORY: chronic low back pain FINDINGS: 5 lumbar type vertebral bodies. Straightening. No loss vertebral body height. Slight (1-2 mm) anterolisthesis L4 on L5. Moderate-severe intervertebral disc space narrowing L5-S1 with endplate sclerosis, spondylosis and milder facet arthrosis. Slight spondylosis and facet arthrosis elsewhere in the lumbar spine. No destructive or blastic lesion. Pedicles and paravertebral soft tissue structures WNL. Large amount of retained stool right colon. IMPRESSION: No acute abnormality lumbosacral spine. Degenerative findings most severe at L5-S1, with evidence DDD. Interpreted by: Mitesh Ho MD Signed by: Mitesh Ho MD 01/20/20 Final result Normal [facility] No acute abnormality lumbosacral spine. Degenerative findings most severe at L5-S1, with evidence DDD. [facility] ID EXAMINATION: THREE XRAY VIEWS OF THE LUMBAR SPINE 01/20/2020 9:56 am COMPARISON: None. HISTORY: ORDERING SYSTEM PROVIDED HISTORY: Chronic bilateral low back pain without sciatica TECHNOLOGIST PROVIDED HISTORY: chronic low back pain FINDINGS: 5 lumbar type vertebral bodies. Straightening. No loss vertebral body height. Slight (1-2 mm) anterolisthesis L4 on L5. Moderate-severe intervertebral disc space narrowing L5-S1 with endplate sclerosis, spondylosis and milder facet arthrosis. Slight spondylosis and facet arthrosis elsewhere in the lumbar spine. No destructive or blastic lesion. Pedicles and paravertebral soft tissue structures WNL. Large amount of retained stool right colon. [place], [place] Tarik, M[facility] Incoming Radiant Results From [employer] - 01/20/2020 12:11 PM EDT EXAMINATION: THREE XRAY VIEWS OF THE LUMBAR SPINE 01/20/2020 9:56 am COMPARISON: None. HISTORY: ORDERING SYSTEM PROVIDED HISTORY: Chronic bilateral low back pain without sciatica TECHNOLOGIST PROVIDED HISTORY: chronic low back pain FINDINGS: 5 lumbar type vertebral bodies. Straightening. No loss vertebral body height. Slight (1-2 mm) anterolisthesis L4 on L5. Moderate-severe intervertebral disc space narrowing L5-S1 with endplate sclerosis, spondylosis and milder facet arthrosis. Slight spondylosis and facet arthrosis elsewhere in the lumbar spine. No destructive or blastic lesion. Pedicles and paravertebral soft tissue structures WNL. Large amount of retained stool right colon. IMPRESSION: No acute abnormality lumbosacral spine. Degenerative findings most severe at L5-S1, with evidence DDD. [facility], ID Hematologyon 01-25-2018 Basophils Auto #/vol (Bld) 0.7 % Invalid Interpretation Code [facility] Basophils/100 WBC Auto (Bld) 0.0 K/uL Invalid Interpretation Code 0.0-0.1 [facility] Eosinophils/100 WBC Auto (Bld) 3.2 % Invalid Interpretation Code [facility] Erythrocyte distribution width Auto Ratio (RBC) 14.2 % Invalid Interpretation Code 10.8-14.8 [facility] Hematocrit Auto Volume Fraction (Bld) 34.70 % Invalid Interpretation Code 36.0-48.0 [facility] Hemoglobin S Solubility test Ql (Bld) 11.7 Invalid Interpretation Code 12.0-16.0 [facility] Lymphocytes/100 WBC Auto (Bld) 43.3 % Invalid Interpretation Code [facility] MCH Auto Entitic mass (RBC) 27.1 pg Invalid Interpretation Code 27.0-34.0 [facility] MCHC Auto mass conc (RBC) 33.7 g/dL Invalid Interpretation Code 31.0-36.0 [facility] MCV Auto Entitic volume (RBC) 80.5 fL Invalid Interpretation Code 80.-100. [facility] Monocytes/100 WBC Auto (Bld) 6.5 % Invalid Interpretation Code [facility] Neutrophils/100 WBC Auto (Bld) 46.1 % Invalid Interpretation Code [facility] Nucleated RBC/100 WBC Ratio (Bld) 0.1 10*3/uL Invalid Interpretation Code 0.1-0.4 [facility] Nucleated RBC/100 WBC Ratio (Bld) 1.9 10*3/uL Invalid Interpretation Code 0.8-5.2 [facility] Nucleated RBC/100 WBC Ratio (Bld) 0.3 10*3/uL Invalid Interpretation Code 0.1-0.9 [facility] Nucleated RBC/100 WBC Ratio (Bld) 2.0 10*3/uL Invalid Interpretation Code 1.3-9.1 [facility] RBC Auto #/vol (Bld) 4.310 10*6/uL Invalid Interpretation Code 4.00-5.50 [facility] Metabolic Panelon 01-25-2018 Albumin mass conc 4.10 g/dL Invalid Interpretation Code 3.5-5.2 [facility] ALP enzyme act/vol 50 U/L Invalid Interpretation Code 30-111 [facility] ALT enzyme act/vol 14 U/L Invalid Interpretation Code 5-40 [facility] Anion gap 3 molar conc 12 mmol/L Invalid Interpretation Code 10-19 [facility] AST enzyme act/vol 13 U/L Invalid Interpretation Code 9-40 [facility] Calcium mass conc 9.90 mg/dL Invalid Interpretation Code 8.5-10.5 [facility] Chloride molar conc 103 mmol/L Invalid Interpretation Code 95-107 [facility] CO2 molar conc 28 mmol/L Invalid Interpretation Code 19-31 [facility] Creatinine mass conc 1.0 mg/dL Invalid Interpretation Code 0.6-1.3 [facility] Glucose mass conc 89 mg/dL Invalid Interpretation Code 70-99 [facility] Potassium molar conc 4.30 mmol/L Invalid Interpretation Code 3.5-5.4 [facility] Protein mass conc 6.0 g/dL Invalid Interpretation Code 6.1-8.3 [facility] Protein mass conc 0.59 g/dL Invalid Interpretation Code <0.5 [facility] Sodium molar conc 143 mmol/L Invalid Interpretation Code 135-146 [facility] Urea nitrogen mass conc 14.0 mg/dL Invalid Interpretation Code 8-23 [facility] Otheron 01-25-2018 Bilirubin Ql (U) 0.2 Invalid Interpretation Code <1.3 [facility] WBC LM Ql (Sput) 4.4 Invalid Interpretation Code 3.7-10.8 [facility] [employer] 74.5 Invalid Interpretation Code >59 [facility] 237 Invalid Interpretation Code 150.-450. 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 [facility] Otheron 09-20-2017 3 Invalid Interpretation Code [facility] 3 Invalid Interpretation Code [facility] Cardiacon 09-14-2017 Cholesterol 220 mg/dL Invalid Interpretation Code <200 [facility] HDL Cholesterol 77.0 mg/dL Invalid Interpretation Code >39 [facility] Triglyceride 113.0 mg/dL Invalid Interpretation Code <150 [facility] Hematologyon 09-14-2017 Basophils Auto #/vol (Bld) 1.0 % Invalid Interpretation Code [facility] [employer] Basophils/100 WBC Auto (Bld) 0.1 K/uL Invalid Interpretation Code 0.0-0.1 [facility] [employer] Eosinophils/100 leukocytes 2.9 % Invalid Interpretation Code [facility] [employer] Erythrocyte distribution width Auto Ratio (RBC) 14.1 % Invalid Interpretation Code 10.8-14.8 [facility] Erythrocytes (RBC) 4.230 10*6/uL Invalid Interpretation Code 4.00-5.50 [facility] [employer] Hematocrit (HCT) 37.0 % Invalid Interpretation Code 36.0-48.0 [facility] Hemoglobin S presence 11.7 Invalid Interpretation Code 12.0-16.0 [facility] Lipoprotein a mass conc 0.2 10*3/uL Invalid Interpretation Code 0.1-0.4 [facility] Lipoprotein a mass conc 2.0 10*3/uL Invalid Interpretation Code 0.8-5.2 [facility] Lipoprotein a mass conc 0.5 10*3/uL Invalid Interpretation Code 0.1-0.9 [facility] Lipoprotein a mass conc 2.6 10*3/uL Invalid Interpretation Code 1.3-9.1 [facility] Lymphocytes/100 leukocytes 37.6 % Invalid Interpretation Code [facility] [employer] MCH 27.7 pg Invalid Interpretation Code 27.0-34.0 [facility] MCHC mass conc (RBC) 31.6 g/dL Invalid Interpretation Code 31.0-36.0 [facility] MCV 87.5 fL Invalid Interpretation Code 80.-100. [facility] Monocytes/100 leukocytes 8.8 % Invalid Interpretation Code [facility] [employer] Neutrophils/100 leukocytes 49.5 % Invalid Interpretation Code [facility] WBC (Leukocytes) 5.2 10*3/uL Invalid Interpretation Code 3.7-10.8 [facility] [employer] Otheron 09-14-2017 Cholesterol crystals Infrared spectroscopy Ql (Stone) 220 mg/dL Invalid Interpretation Code <200 [facility] [employer] Cholesterol to HDL Ratio 2.9 {ratio} Invalid Interpretation Code <5 [facility] [employer] LDL to HDL Ratio 1.6 Invalid Interpretation Code <3.5 [facility] Lipoprotein.beta/L ipoprotein.alpha mass ratio 1.6 Invalid Interpretation Code <3.5 [facility] [employer] PreB-LP SerPl-mCnc 23.0 mg/dL Invalid Interpretation Code <30 [facility] PreB-LP SerPl-mCnc 120.0 mg/dL Invalid Interpretation Code <130 [facility] [employer] WBC LM Ql (Sput) 5.2 Invalid Interpretation Code 3.7-10.8 [facility] 298 Invalid Interpretation Code 150.-450. [facility] Thyroidon 09-14-2017 Thyroid stimulating hormone (TSH) 2.270 uIU/mL Invalid Interpretation Code 0.40-4.10 [facility] Thyroxine (T4) free 0.990 ng/dL Invalid Interpretation Code 0.80-1.90 [facility] Vital Signs Date Time Vital Sign Value Performing Clinician Khanhi lity 02-13-2018 13:08-0400 BMI (Body Mass Index) 56.47 kg/m2 [facility] 02-13-2018 13:08-0400 Body Temperature 98 [degF] [facility] 02-13-2018 13:08-0400 BP Diastolic 80 mm[Hg] [facility] 02-13-2018 13:08-0400 BP Systolic 124 mm[Hg] [facility] 02-13-2018 13:08-0400 BSA (Body Surface Area) 2.[address] [facility] 02-13-2018 13:08-0400 Height 153.[address] [facility] 02-13-2018 13:08-0400 Pulse (Heart Rate) 74 /min [facility] 02-13-2018 13:08-0400 Pulse Oximetry 97 % [facility] 02-13-2018 13:08-0400 Respiratory Rate 20 /min [facility] 02-13-2018 13:08-0400 Weight 133.[address] [facility] 02-13-2018 10:08-0400 Body height 153.67 cm Leda Agrawal CNP Work Phone: [facility] Work Phone: 02-13-2018 10:08-0400 Body mass index (BMI) [Ratio] 56.5 kg/m2 Leda Agrawal CNP Work Phone: [facility] Work Phone: 02-13-2018 10:08-0400 Body surface area Derived from formula 2.21 m2 Leda Agrawal CNP Work Phone: [facility] Work Phone: 02-13-2018 10:08-0400 Body temperature 98 [degF] Leda Agrawal CNP Work Phone: [facility] Work Phone: 02-13-2018 10:08-0400 Body weight 133.36 kg Leda Agrawal CNP Work Phone: [facility] Work Phone: 02-13-2018 10:08-0400 Diastolic blood pressure 80 mm[Hg] Leda Agrawal CNP Work Phone: [facility] Work Phone: 02-13-2018 10:08-0400 Heart rate 74 /min Leda Agrawal CNP Work Phone: [facility] Work Phone: 02-13-2018 10:08-0400 Respiratory rate 20 /min Leda Agrawal CNP Work Phone: [facility] Work Phone: 02-13-2018 10:08-0400 Systolic blood pressure 124 mm[Hg] Leda Agrawal CNP Work Phone: [facility] Work Phone: 01-25-2018 12:47-0400 BMI (Body Mass Index) 56.47 kg/m2 Leda Agrawal [facility] 01-25-2018 12:47-0400 Body Temperature 98.4 [degF] [facility] 01-25-2018 12:47-0400 BP Diastolic 82 mm[Hg] [facility] 01-25-2018 12:47-0400 BP Systolic 122 mm[Hg] [facility] 01-25-2018 12:47-0400 BSA (Body Surface Area) 2.[address] [facility] 01-25-2018 12:47-0400 Height 153.[address] [facility] 01-25-2018 12:47-0400 Pulse (Heart Rate) 73 /min [facility] 01-25-2018 12:47-0400 Pulse Oximetry 96 % [facility] 01-25-2018 12:47-0400 Respiratory Rate 18 /min [facility] 01-25-2018 12:47-0400 Weight 133.[address] [facility] 01-25-2018 09:47-0400 Body height 153.67 cm Leda Tanja [facility] Work Phone: [facility] Work Phone: 01-25-2018 09:47-0400 Body mass index (BMI) [Ratio] 56.5 kg/m2 Leda Tanja [facility] Work Phone: [facility] Work Phone: 01-25-2018 09:47-0400 Body surface area Derived from formula 2.21 m2 Leda Tanja [facility] Work Phone: [facility] Work Phone: 01-25-2018 09:47-0400 Body temperature 98.4 [degF] Leda Agrawal CNP Work Phone: [facility] Work Phone: 01-25-2018 09:47-0400 Body weight 133.36 kg Leda Agrawal CNP Work Phone: [facility] Work Phone: 01-25-2018 09:47-0400 Diastolic blood pressure 82 mm[Hg] Leda Agrawal CNP Work Phone: [facility] Work Phone: 01-25-2018 09:47-0400 Heart rate 73 /min Leda Agrawal CNP Work Phone: [facility] Work Phone: 01-25-2018 09:47-0400 Respiratory rate 18 /min Leda Agrawal CNP Work Phone: [facility] Work Phone: 01-25-2018 09:47-0400 Systolic blood pressure 122 mm[Hg] Leda Agrawal CNP Work Phone: [facility] Work Phone: 11-14-2017 18:20-0400 BMI (Body Mass Index) 56.47 kg/m2 Leda Tanja [facility] 11-14-2017 18:20-0400 Body Temperature 97.4 [degF] 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 [facility] 11-14-2017 18:20-0400 BP Diastolic 80 mm[Hg] [facility] 11-14-2017 18:20-0400 BP Systolic 130 mm[Hg] [facility] 11-14-2017 18:20-0400 BSA (Body Surface Area) 2.[address] [facility] 11-14-2017 18:20-0400 Height 153.67 cm Leda Agrawal [facility] 11-14-2017 18:20-0400 Pulse (Heart Rate) 96 /min 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 [facility] 11-14-2017 18:20-0400 Pulse Oximetry 95 % [facility] Tanja [facility] 11-14-2017 18:20-0400 Respiratory Rate 18 /min 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 [facility] 11-14-2017 18:20-0400 Weight 133.36 kg [facility] Tanja [facility] 11-14-2017 15:20-0400 Body height 153.67 cm Leda Agrawal CNP Work Phone: [facility] Work Phone: 11-14-2017 15:20-0400 Body mass index (BMI) [Ratio] 56.5 kg/m2 Leda Agrawal CNP Work Phone: [facility] Work Phone: 11-14-2017 15:20-0400 Body surface area Derived from formula 2.21 m2 Leda Agrawal CNP Work Phone: [facility] Work Phone: 11-14-2017 15:20-0400 Body temperature 97.4 [degF] Leda Agrawal CNP Work Phone: [facility] Work Phone: 11-14-2017 15:20-0400 Body weight 133.36 kg Leda Agrawal CNP Work Phone: [facility] Work Phone: 11-14-2017 15:20-0400 Diastolic blood pressure 80 mm[Hg] Leda Agrawal CNP Work Phone: [facility] Work Phone: 11-14-2017 15:20-0400 Heart rate 96 /min Leda Agrawal CNP Work Phone: [facility] Work Phone: 11-14-2017 15:20-0400 Respiratory rate 18 /min Leda Agrawal CNP Work Phone: [facility] Work Phone: 11-14-2017 15:20-0400 Systolic blood pressure 130 mm[Hg] Leda Agrawal CNP Work Phone: [facility] Work Phone: 10-12-2017 11:11-0400 BMI (Body Mass Index) 57.12 kg/m2 [facility] 10-12-2017 11:11-0400 Body Temperature 98.8 [degF] [facility] 10-12-2017 11:11-0400 BP Diastolic 83 mm[Hg] [facility] 10-12-2017 11:11-0400 BP Systolic 122 mm[Hg] [facility] 10-12-2017 11:11-0400 BSA (Body Surface Area) 2.[address] [facility] 10-12-2017 11:11-0400 Height 153.[address] [facility] 10-12-2017 11:11-0400 Pulse (Heart Rate) 79 /min [facility] 10-12-2017 11:11-0400 Pulse Oximetry 99 % [facility] 10-12-2017 11:11-0400 Respiratory Rate 18 /min [facility] 10-12-2017 11:11-0400 Weight 134.[address] [facility] 10-12-2017 10:11-0400 BMI (Body Mass Index) 57.12 kg/m2 [facility] 10-12-2017 10:11-0400 Body Temperature 98.8 [degF] [facility] 10-12-2017 10:11-0400 BP Diastolic 83 mm[Hg] [facility] 10-12-2017 10:11-0400 BP Systolic 122 mm[Hg] [facility] 10-12-2017 10:11-0400 BSA (Body Surface Area) 2.[address] [facility] 10-12-2017 10:11-0400 Height 153.[address] [facility] 10-12-2017 10:11-0400 Pulse (Heart Rate) 79 /min [facility] 10-12-2017 10:11-0400 Pulse Oximetry 99 % [facility] 10-12-2017 10:11-0400 Respiratory Rate 18 /min [facility] 10-12-2017 10:11-0400 Weight 134.[address] [facility] 10-12-2017 08:11-0400 Body height 153.67 cm [facility] Work Phone: [facility] Work Phone: 10-12-2017 08:11-0400 Body mass index (BMI) [Ratio] 57 kg/m2 [facility] Work Phone: [facility] Work Phone: 10-12-2017 08:11-0400 Body surface area Derived from formula 2.22 m2 Leda Agrawal CNP Work Phone: [facility] Work Phone: 10-12-2017 08:11-0400 Body temperature 98.8 [degF] Leda Agrawal CNP Work Phone: [facility] Work Phone: 10-12-2017 08:11-0400 Body weight 134.72 kg Leda Agrawal CNP Work Phone: [facility] Work Phone: 10-12-2017 08:11-0400 Diastolic blood pressure 83 mm[Hg] Leda Agrawal CNP Work Phone: [facility] Work Phone: 10-12-2017 08:11-0400 Heart rate 79 /min Leda Agrawal CNP Work Phone: [facility] Work Phone: 10-12-2017 08:11-0400 Respiratory rate 18 /min Leda Agrawal CNP Work Phone: [facility] Work Phone: 10-12-2017 08:11-0400 Systolic blood pressure 122 mm[Hg] Leda Agrawal CNP Work Phone: [facility] Work Phone: 09-20-2017 17:04-0400 BP Diastolic 80 mm[Hg] Leda Agrawal [facility] 09-20-2017 17:04-0400 BP Systolic 136 mm[Hg] Leda Agrawal [facility] 09-20-2017 16:19-0400 BMI (Body Mass Index) 59.21 kg/m2 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 [facility] 09-20-2017 16:19-0400 Body Temperature 97.1 [degF] Leda Agrawal [facility] 09-20-2017 16:19-0400 BP Diastolic 80 mm[Hg] [facility] 09-20-2017 16:19-0400 BP Systolic 142 mm[Hg] [facility] 09-20-2017 16:19-0400 BSA (Body Surface Area) 2.[address] [facility] 09-20-2017 16:19-0400 Height 153.[address] [facility] 09-20-2017 16:19-0400 Pulse (Heart Rate) 94 /min [facility] 09-20-2017 16:19-0400 Pulse Oximetry 96 % [facility] 09-20-2017 16:19-0400 Respiratory Rate 18 /min [facility] 09-20-2017 16:19-0400 Weight 139.[address] [facility] 09-20-2017 16:04-0400 BP Diastolic 80 mm[Hg] [facility] 09-20-2017 16:04-0400 BP Systolic 136 mm[Hg] [facility] 09-20-2017 15:19-0400 BMI (Body Mass Index) 59.21 kg/m2 [facility] 09-20-2017 15:19-0400 Body Temperature 97.1 [degF] [facility] 09-20-2017 15:19-0400 BP Diastolic 80 mm[Hg] [facility] 09-20-2017 15:19-0400 BP Systolic 142 mm[Hg] Leda Tanja [facility] 09-20-2017 15:19-0400 BSA (Body Surface Area) 2.44 m2 Leda Agrawal [facility] 09-20-2017 15:19-0400 Height 153.[address] [facility] 09-20-2017 15:19-0400 Pulse (Heart Rate) 94 /min [facility] Tanja [facility] 09-20-2017 15:19-0400 Pulse Oximetry 96 % [facility] 09-20-2017 15:19-0400 Respiratory Rate 18 /min [facility] 09-20-2017 15:19-0400 Weight 139.[address] [facility] 09-20-2017 14:04-0400 Diastolic blood pressure 80 mm[Hg] Leda Agrawal CNP Work Phone: [facility] Work Phone: 09-20-2017 14:04-0400 Systolic blood pressure 136 mm[Hg] Leda Agrawal CNP Work Phone: [facility] Work Phone: 09-20-2017 13:19-0400 Body height 153.67 cm Leda Agrawal CNP Work Phone: [facility] Work Phone: 09-20-2017 13:19-0400 Body mass index (BMI) [Ratio] 59.2 kg/m2 Leda Agrawal CNP Work Phone: [facility] Work Phone: 09-20-2017 13:19-0400 Body surface area Derived from formula 2.26 m2 Leda Agrawal CNP Work Phone: [facility] Work Phone: 09-20-2017 13:19-0400 Body temperature 97.1 [degF] Leda Agrawal CNP Work Phone: [facility] Work Phone: 09-20-2017 13:19-0400 Body weight 139.71 kg Leda Agrawal CNP Work Phone: [facility] Work Phone: 09-20-2017 13:19-0400 Diastolic blood pressure 80 mm[Hg] Leda Agrawal CNP Work Phone: [facility] Work Phone: 09-20-2017 13:19-0400 Heart rate 94 /min Leda Agrawal CNP Work Phone: [facility] Work Phone: 09-20-2017 13:19-0400 Respiratory rate 18 /min Leda Agrawal CNP Work Phone: [facility] Work Phone: 09-20-2017 13:19-0400 Systolic blood pressure 142 mm[Hg] Leda Agrawal CNP Work Phone: [facility] Work Phone: 09-14-2017 12:35-0400 BMI (Body Mass Index) 59.76 kg/m2 Leda Tanja [facility] 09-14-2017 12:35-0400 Body Temperature 97 [degF] Leda Tanja [facility] 09-14-2017 12:35-0400 BP Diastolic 72 mm[Hg] [facility] 09-14-2017 12:35-0400 BP Systolic 122 mm[Hg] [facility] 09-14-2017 12:35-0400 BSA (Body Surface Area) 2.[address] [facility] 09-14-2017 12:35-0400 Height 153.[address] [facility] 09-14-2017 12:35-0400 Pulse (Heart Rate) 71 /min [facility] 09-14-2017 12:35-0400 Pulse Oximetry 97 % [facility] 09-14-2017 12:35-0400 Respiratory Rate 18 /min [facility] 09-14-2017 12:35-0400 Weight 141.[address] [facility] 09-14-2017 11:35-0400 BMI (Body Mass Index) 59.76 kg/m2 [facility] 09-14-2017 11:35-0400 Body Temperature 97 [degF] [facility] 09-14-2017 11:35-0400 BP Diastolic 72 mm[Hg] [facility] 09-14-2017 11:35-0400 BP Systolic 122 mm[Hg] [facility] 09-14-2017 11:35-0400 BSA (Body Surface Area) 2.[address] [facility] 09-14-2017 11:35-0400 Height 153.[address] [facility] 09-14-2017 11:35-0400 Pulse (Heart Rate) 71 /min [facility] 09-14-2017 11:35-0400 Pulse Oximetry 97 % [facility] 09-14-2017 11:35-0400 Respiratory Rate 18 /min [facility] 09-14-2017 11:35-0400 Weight 141.13 kg Leda Agrawal [facility] 09-14-2017 09:35-0400 Body height 153.67 cm Leda Agrawal CNP Work Phone: [facility] Work Phone: 09-14-2017 09:35-0400 Body mass index (BMI) [Ratio] 59.7 kg/m2 Leda Agrawal CNP Work Phone: [facility] Work Phone: 09-14-2017 09:35-0400 Body surface area Derived from formula 2.27 m2 Leda Agrawal CNP Work Phone: [facility] Work Phone: 09-14-2017 09:35-0400 Body temperature 97 [degF] Leda Agrawal CNP Work Phone: [facility] Work Phone: 09-14-2017 09:35-0400 Body weight 141.07 kg Leda Agrawal CNP Work Phone: [facility] Work Phone: 09-14-2017 09:35-0400 Diastolic blood pressure 72 mm[Hg] Leda Agrawal CNP Work Phone: [facility] Work Phone: 09-14-2017 09:35-0400 Heart rate 71 /min Leda Agrawal CNP Work Phone: [facility] Work Phone: 09-14-2017 09:35-0400 Respiratory rate 18 /min Leda Agrawal CNP Work Phone: [facility] Work Phone: 09-14-2017 09:35-0400 Systolic blood pressure 122 mm[Hg] Leda Agrawal CNP Work Phone: [facility] Work Phone: Encounters Encounter Date Encounter Type Care Provider Facility Start: 04-15-2022 End: 04-17-2022 ambulatory QUYNH ARCHER Facility:[facility]1 Start: 02-08-2022 End: 02-09-2022 ambulatory NANCI BEEBE Facility:[facility]1 Start: 12-30-2021 End: 12-31-[address] FLOR RIVERA Facility:[facility] Start: 01-20-2020 End: 01-23-2020 Patient encounter procedure [facility] Start: 01-20-2020 End: 01-22-2020 Subsequent hospital visit by physician Roman Palacio Dr Room 4 [facility] Radiology Comment on above: Chronic bilateral lo w back pain without sciatica Chronic neck pain; Chronic bilateral low back pain without sciatica Start: 07-31-2018 Patient encounter procedure Danilodevorahjohnathan Kirkpatrick Facility:[id number] Start: 07-20-2018 End: 07-20-2018 General Leda Agrawal CNP Work Phone: [facility] Work Phone: Start: 02-13-2018 End: 02-13-2018 Patient encounter procedure 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 Work Phone: [facility] Work Phone: Start: 02-13-2018 Office outpatient vi sit 15 minutes 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 Other [facility] Start: 01-25-2018 End: 01-25-2018 Patient encounter procedure 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 Work Phone: [facility] Work Phone: Start: 01-25-2018 Office outpatient vi sit 15 minutes Leda Tanja Other [facility] Start: 11-14-2017 Office outpatient vi sit 15 minutes Leda Tanja Other [facility] Start: 11-14-2017 End: 11-14-2017 Patient encounter procedure 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 Work Phone: [facility] Work Phone: Start: 10-12-2017 End: 10-12-2017 Patient encounter procedure Leda Agrawal CNP Work Phone: [facility] Work Phone: Start: 10-12-2017 End: 10-12-2017 Office outpatient visit 15 minutes Leda Agrawal Other [facility] Start: 10-12-2017 Polysom 6/>yrs sleep 4/> addl nicky attnd Leda Agrawal [facility] Start: 10-12-2017 Polysom 6/>yrs sleep w/cpap 4/> addl nicky attnd [facility] Start: 09-20-2017 End: 09-20-2017 Office outpatient visit 15 minutes Leda Agrawal Other [facility] Start: 09-20-2017 End: 09-20-2017 Patient encounter procedure Leda Agrawal CNP Work Phone: [facility] Work Phone: Start: 09-14-2017 End: 09-14-2017 Patient encounter procedure Leda Agrawal CNP Work Phone: [facility] Work Phone: Start: 09-14-2017 Laboratory examinati on, unspecified Leda Agrawal [facility] Start: 09-14-2017 Colonoscopy w/biopsy single/multiple Leda Agrawal [facility] Start: 09-14-2017 Dxa bone density kourtney dy 1/> sites axial skel Leda Agrawal [facility] Start: 09-14-2017 End: 09-14-2017 Office outpatient new 45 minutes Leda Agrawal Other [facility] Procedures Date Procedure Procedure Detail Performing Clinician Start: 01-20-2020 Radex spine lumbosac ral 2/3 views TIM SHARMA Start: 01-20-2020 Radex spine cervical 2 or 3 views TIM SHARMA Start: 01-20-2020 Radex spine lumbosac ral 2/3 views Tim Sharma Work Phone: Start: 01-20-2020 Radex spine cervical 2 or 3 views Tim Sharma Work Phone: Start: 08-10-2018 Follow-up visit Start: 01-25-2018 Assay of free thyroxine Leda Agrawal Start: 01-25-2018 Assay of thyroid stimulating hormone tsh Leda Agrawal Start: 01-25-2018 Blood count complete auto&auto difrntl wbc Leda Agrawal Start: 01-25-2018 End: 01-25-2018 C-reactive protein Leda Agrawal Start: 01-25-2018 End: 01-25-2018 Comprehensive metabolic panel Leda Agrawal Start: 01-25-2018 End: 01-25-2018 Ct head/brain w/o & w/contrast material Leda Agrawal Start: 01-25-2018 Neurology. Leda quach Start: 01-25-2018 End: 01-25-2018 Sedimentation rate rbc automated Leda Agrawal Start: 10-12-2017 Physical therapy management Leda Agrawal Start: 10-12-2017 End: 10-12-2017 Polysom 6/>yrs sleep 4/> addl nicky attnd Leda Agrawal Start: 10-12-2017 End: 10-12-2017 Polysom 6/>yrs sleep w/cpap 4/> addl nicky shamikand Leda Agrawal Start: 09-20-2017 PHQ9 Administered Leda Agrawal Start: 09-20-2017 SBIRT Negative Leda mckeon Start: 09-14-2017 Assay of free thyroxine Leda Agrawal Start: 09-14-2017 Assay of thyroid stimulating hormone tsh Leda Agrawal Start: 09-14-2017 Blood count complete auto&auto difrntl wbc Leda Agrawal Start: 09-14-2017 Collection venous bl ood venipuncture Leda Agrawal Start: 09-14-2017 End: 09-14-2017 Colonoscopy w/biopsy single/multiple Leda Agrawal Start: 09-14-2017 End: 09-14-2017 Dxa bone density study 1/> sites axial skel Leda Agrawal Start: 09-14-2017 Lipid panel Leda quach Start: 09-14-2017 Pap not indicated Leda Tanja Start: 09-14-2017 Physical therapy management Leda Tanja Start: 09-14-2017 Pt-focused hlth risk assmt score doc stnd instrm Leda Tanja Start: 09-14-2017 Pulmonology. Leda Dia quach Plan of Treatment Date Care Activity Detail Author Start: 04-30-2020 End: 04-30-2020 Office Visit 04/30/2020 Office Visit Neurology Tim Sharma MD [address] [facility] [address] [place] [id number] [facility] Start: 12-24-2019 Influenza vaccination Flu vaccine (#1) [place], [place] Start: 08-31-2019 Screening for malignant neoplasm of lung Low dose CT lung screening [place], [place] Start: 02-13-2019 Creatinine measurement Creatinine monitoring [place], [place] Start: 11-30-2018 Potassium monitoring Potassium monitoring [place], [place] Start: 11-08-2018 Lipid panel Lipid screen [place], [place] Start: 08-02-2018 [facility] visit, estab pt Established Patient [facility] Work Phone: Start: 10-12-2017 Polysom 6/>yrs sleep 4/> addl nicky attnd Polysomnography with CPAP testing [facility] Start: 10-12-2017 Polysom 6/>yrs sleep w/cpap 4/> addl nicky attnd Polysomnography with CPAP testing [facility] Start: 09-14-2017 Dual energy X-ray photon absorptiometry DEXA scan for body composition study [facility] Start: 08-22-2016 Screening for malignant neoplasm of breast Breast cancer screen [place], [place] Start: 01-24-2016 Screening for malignant neoplasm of cervix Cervical cancer screen [place], [place] Start: 2014 Screening for malignant neoplasm of colon Colon cancer screen colonoscopy [place], [place] Start: 2014 Shingles Vaccine (1 of 2) Shingles Vaccine (1 of 2) [place], [place] Start: 08-31-1983 DTaP/Tdap/Td vaccine (1 - Tdap) DTaP/Tdap/Td vaccine (1 - Tdap) [place], [place] Start: 08-31-1979 HIV screening HIV screen [place], [place] Start: 1970 Pneumococcal 0-64 years Vaccine (1 of 1 - PPSV23) Pneumococcal 0-64 years Vaccine (1 of 1 - PPSV23) [place], [place] Start: 1964 Hepatitis C screening Hepatitis C screen [place], [place] Payers Date Payer Category Payer Medicaid [id number] 1959 Private Health Insurance [id number] 1964 Unknown [id number] 1964 Unknown [id number] [id number] 1964 Unknown [id number] [id number] 1964 Unknown [id number] [id number] 1964 Unknown [id number] [id number] 1964 Unknown [id number] [id number] 1964 Unknown [id number] Social History Date Type Detail [facility] Start: End: 12-17-2012 Current [facility] day sm[facility] End: 12-17-2012 History of tobacco use [facility] Start: 01-20-2020 Cigarettes smoked current (pack per day) - Reported [facility] Start: 01-20-2020 Tobacco use and exposure [facility] Start: 01-20-2020 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 FINDINGS: BONES:Small corticated calcifications adjacent the medial malleolus favoring sequela of remote injury. Large calcaneal degenerative enthesophytes. 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 Mild degenerative changes the midfoot. SOFT TISSUES:Lateral soft tissue swelling. EFFUSION:None visible. OTHER: Negative. IMPRESSION: 1. No acute bone abnormality. 2. Mild degenerative changes and postsurgical changes. Electronically authenticated by: LO COSTA Date: 2022-02-09 06:49 [facility] Clinical Note 02-09-2022 Note Date & Type Note Facility 02-09-2022 Note PROCEDURE: XR ANKLE RT MIN 3 VIEWS, XR FOOT RT MIN 3 VIEWS HISTORY: Pain ; chronic dorsal foot pain COMPARISON: None. FINDINGS: BONES:Small corticated calcifications adjacent the medial malleolus favoring sequela of remote injury. Large calcaneal degenerative enthesophytes. 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 Mild degenerative changes the midfoot. SOFT TISSUES:Lateral soft tissue swelling. EFFUSION:None visible. OTHER: Negative. IMPRESSION: 1. No acute bone abnormality. 2. Mild degenerative changes and postsurgical changes. Electronically authenticated by: LO COSTA Date: 2022-02-09 06:49 [facility] Evaluation note Note Date & Type Note Facility Evaluation note Includes: Assessments for all patient encountersNo Assessments Recorded [facility] Work Phone: History of Present illness Narrative Note Date & Type Note Facility History of Present illness Narrative History of Present Illness not supported for this document typeNo History of Present Illness Recorded [facility] Work Phone: Instructions Note Date & Type Note Facility Instructions Instructions not supported for this document typeNo Instructions Recorded [facility] Work Phone: Patient problem outcome Narrative Note Date & Type Note Facility Patient problem outcome Narrative Includes: Evaluations & Outcomes for active GoalsNo Outcomes Recorded [facility] Work Phone: Review of systems Narrative - Reported Note Date & Type Note Facility Review of systems Narrative - Reported Review of Systems not supported for this document typeNo Review of Systems Recorded [facility] Work Phone: History of Past Illness Name Date of Onset Comments DDD (degenerative disc disease), lumbosacral Essential hypertension Restless leg Emphysema Fibromyalgia Meralgia paresthetica of right side GERD (gastroesophageal reflux disease) Osteoarthritis Arm fracture MRSA infection Cervical cancer Screening for diabetes mellitus Sep 14 2017 9:52 AM Colon cancer screening Sep 14 2017 9:52AM Establishing care with new doctor, encounter for Sep 14 2017 9:52AM Encounter for routine laboratory testing Sep 14 2017 9:52AM Pain in right knee Sep 14 2017 9:52AM Pain in left knee Sep 14 2017 9:52AM COPD (chronic obstructive pulmonary disease) Sep 14 2017 9:52AM Bone loss Sep 14 2017 9:52AM BMI 50.0-59.9, adult Sep 14 2017 9:52AM BMI 50.0-59.9, adult Sep 20 2017 1:28PM Hip pain Sep 20 2017 1:28PM Name Date of Onset Comments DDD (degenerative disc disease), lumbosacral Essential hypertension Restless leg Emphysema Fibromyalgia Meralgia paresthetica of right side GERD (gastroesophageal reflux disease) Osteoarthritis Arm fracture MRSA infection Cervical cancer Screening for diabetes mellitus Sep 14 2017 9:52 AM Colon cancer screening Sep 14 2017 9:52AM Establishing care with new doctor, encounter for Sep 14 2017 9:52AM Encounter for routine laboratory testing Sep 14 2017 9:52AM Pain in right knee Sep 14 2017 9:52AM Pain in left knee Sep 14 2017 9:52AM COPD (chronic obstructive pulmonary disease) Sep 14 2017 9:52AM Bone loss Sep 14 2017 9:52AM BMI 50.0-59.9, adult Sep 14 2017 9:52AM BMI 50.0-59.9, adult Sep 20 2017 1:28PM Hip pain Sep 20 2017 1:28PM Sleep apnea Oct 12 2017 8:19AM BMI 50.0-59.9, adult Oct 12 2017 8:19AM Left knee pain Oct 12 2017 8:19AM Summary Purpose Family History No Family History Records FoundNo Family History Records FoundNo Family History Records FoundNo Family History Records Found Includes: Family History in patient's chart No Family History RecordedNo Family History Records Found Advance Directives No Advanced Directives Records FoundDocuments on File Type Date Recorded 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 ACP-Advance Directive ACP-Power of Information Technology Assistant Assessments Diagnosis Chronic bilateral low back pain without sciatica Diagnosis Chronic neck pain Cervicalgia Chronic bilateral low back pain without sciatica Physical Exam Physical Exam not supported for this document type No Physical Exam Recorded Additional Source Comments INFORMATION SOURCE (unrecogn ized section and content) DATE CREATED AUTHOR 10/23/2017 [facility] DATE CREATED AUTHOR AUTHOR'S ORGANIZ ATION 08/01/2018 [facility] DATE CREATED AUTHOR AUTHOR'S ORGANIZ ATION 08/11/2018 [employer] DATE CREATED AUTHOR AUTHOR'S ORGANIZ ATION 01/23/2020 [facility] DATE CREATED AUTHOR AUTHOR'S ORGANIZ ATION 04/19/2022 [facility] FOR RECORDS PERTAINING TO PATIENTS WHO ARE OR HAVE BEEN ENROLLED IN A CHEMICAL DEPENDENCY/SUBSTANCEABUSE PROGRAM, SOME INFORMATION MAY BE OMITTED. This clinical summary was aggregated from multiple sources. Caution should be exercised in using it in the provision of clinical care. This summary normalizes information from multiple sources, and as a consequence, information in this document may materially change the coding, format and clinical context of patient data. In addition, data may be omitted in some cases. CLINICAL DECISIONS SHOULD BE BASED ON THE PRIMARY CLINICAL RECORDS. [facility] [employer] provides no warranty or guarantee of the accuracy or completeness of information in this document.
[2023-04-24 20:56] VITALS: PULSE 86; RESP 20; TEMP 36.8; O2SAT 96; BMI 58.6
[2023-04-24 21:29] LABS: SARS-CoV-2 Ag NEGATIVE (NEGATIVE)
[2023-04-24 21:30] LABS: Influenza Virus A Antigen Negative; Influenza Virus B Antigen Negative; Internal Control Within Normal Limits
[2023-04-26 15:10] LABS: SARS-CoV-2 NAA NOT DETECTED (NOT DETECTE)
== END 2023-04-24 22:07 | disposition left against medical advice (07) ==
LOC: ER 20:40
PROVIDERS: Emergency Provider Emergency Medicine; PCP Internal Medicine
DX: Z20.822 Contact with and (suspected) exposure to COVID-19 (principal); Z53.21 Procedure and treatment not carried out due to patient leaving prior to being seen by health care provider
CPT/HCPCS: 87635; 87804; 87811

== ENCOUNTER 2023-07-21 08:15 | Emergency (ER) | payer OTHER, SELFPAY ==
[2023-07-21 08:18] VITALS: BP 131/75; PULSE 98; TEMP 36.9; O2SAT 98; BMI 62.4
--- OUTSIDE RECORDS SUMMARY | 2023-07-21 08:27 | XMS_ITS | CCD ---
Author Organization [facility] Care Team Providers Care Assistant Manager Quality Management Name Role Phone Tanja, Leda Unavailable Unavailable Unavailable Unavailable Unavailable Unavailable Unavailable Unavailable Tanja, Leda Unavailable Unavailable Tanja, Leda Unavailable Unavailable Unavailable Unavailable Unavailable Heath Kirkpatrick Attending Gisselle vailable Heath Kirkpatrick Referring Gisselle vailable Rumschlag, Mignon Primary Care Provider [phone] TIM SHARMA Referring Unavailab le RUMSCHLAG, MIGNON Primary Care Unavailable TIM SHARMA Referring Unavailab le RUMSCHLAG, MIGNON Primary Care Unavailable TIM SHARMA Referring Unavailab le RUMSCHLAG, MIGNON Primary Care Unavailable Tanja TELLY, Leda Unavailable NICOLE, DR FLOR Novoa Attending Unavailable NICOLE, DR FLOR Novoa Admitting Unavailable [facility] Unavailable LIYAH, DR EBEN Couch Consulting Unavailabl e SHEY, DR FRIEDA Tobar Consulting Unavailabl e JULISSA, DR LO Hdz Consulting Unavailable NICOLE, DR FLOR Novoa Consulting Unavailable MARKER, DR KHAN Consulting Unavailable NANCI BEEBE Attending Unavailable NANCI BEEBE Admitting Unavailable JULISSA, DR LO Hdz Consulting Unavailable [facility] Primary Care Unavailable NANCI BEEBE Consulting Unavailable QUYNH ARCHER Attending Unavailable QUYNH ARCHER Admitting Unavailable [facility] Primary Care Unavailable QUYNH ARCHER Consulting Unavailable Allergies Allergy Classification Reported Allergen(s) Allergy Type Date of Onset Reaction(s) Facility (8 sources) codeine; Translations: [Codeine] Drug Allergy 01-19-20 12 Nausea And Vomiting [facility] (4 sources) pregabalin; Translations: [Lyrica] Drug Allergy [facility] (4 sources) sulfamethoxazole / trimethoprim; Translations: [Bactrim] Drug Allergy [facility] (4 sources) -No Environmental Allergies; Translations: [-No Environmental Allergies] Allergy to substance (disorder) [facility] (2 sources) -No Known Food Allergies Allergy to substance (disorder) [facility] (3 sources) NSAIDs Propensity to adverse reactions to drug 02-24-20 15 Other (See Comments) [place] (3 sources) pregabalin Drug Allergy 01-19-20 12 Other (See Comments) [place] (3 sources) Sulfamethoxazole / Trimethoprim Drug Allergy 09-18-19 18 Hives [place] (1 source) pregabalin Drug Allergy 12-31-19 22 [facility] (1 source) Sulfamethoxazole / Trimethoprim Drug Allergy 04-15-20 22 [facility] Medications Current Medications Medication Drug Class(es) Dates Sig (Normalized) Sig (Original) acetaminophen 325 mg oral tablet (3 sources) take 2 tablets by mouth every four hours as needed for pain acetaminophen (TYLENOL) 325 MG tablet Take 650 mg by mouth every 4 hours as needed for Pain 0 Active [id number] 200 actuat albuterol 0.09 mg/actuat metered dose inhaler (8 sources) beta2-Adrenergic Agonist Start: 07-19-2018 Ventolin HFA 108 (90 Base)MCG/ACT Inhalation Aerosol, solution 07/19/2018 Provider: Start: 05-19-2018 End: 05-19-2018 VENTOLIN HFA 90MCG/ACTUAT [place] 05/19/2018 - 05/19/2018 Provider: take 2 [...] CALCIUM 600 600 mg calcium(1 ,500 MG) [facility] 09/14/2017 - 09/14/2017 Provider: calcium carbonate 1250 [...] Start: 11-14-2017 End: 11-14-2017 ZYRTEC 10 mg [facility] 11/14/2017 - 11/14/2017 Provider: donepezil hydrochloride 10 mg oral tablet (3 sources) take 1 tablet by mouth once daily donepezil (ARICEPT) 10 MG tablet Take 10 mg by mouth nightly 0 Active DULoxetine 30 mg delayed release oral capsule (15 sources) Serotonin and Norepinephrine Reuptake Inhibitor Start: 07-20-19 DULoxetine HCl 30MG Oral Capsule, delayed-release particles 07/19/2018 Provider: Start: 05-19-2018 End: 05-19-2018 DULOXETINE 30MG MISC 019 - 05/19/2018 Provider: Start: 05-19-2018 End: 05-19-2018 DULOXETINE 60MG MISC 019 - 05/19/2018 Provider: Start: 03-07-2018 DULoxetine HCl 60MG Oral Capsule, delayed-release particles 07/19/2018 Provider: Start: 03-07-2018 take 1 capsule by [facility] once daily duloxetine 30 mg oral capsule,delayed release(DR/EC) 03/07/2018 take 1 capsule (30 mg) by oral route once daily, take with 60 mg capsule to equal 90 mg daily Start: 03-07-2018 End: 03-07-2018 [facility] - 03/07/2018 Provider: Start: 03-07-2018 End: 03-07-2018 D[facility]INE 30MG [facility] - 03/07/2018 Provider: take 1 capsule by [facility] once daily duloxetine 30 mg oral capsule,delayed release(DR/EC) take 1 capsule (30 mg) by oral route once daily ergocalciferol 1.25 mg oral capsule (4 sources) Provitamin D2 Compound Start: 07-19-2018 Ergocalciferol [id number] Oral Capsule, conventional 07/19/2018 Provider: Start: 09-14-2017 take 1 capsule by [facility] every week Vitamin D2 50,000 unit oral [...] Provider Start: 09-26-2017 [facility] lisinopril-hydrochlorothiazide 10-12.5 m g oral [...] Start: 03-13-2018 take 1 capsule by mo [facility] twice daily hydroxyzine pamoate 50 mg oral [...] Start: 11-14-2017 End: 11-14-2017 TRAMADOL 50 mg [facility] 11/15/19 - 11/14/2017 Provider: take 1 tablet by jayson th three times daily as needed tramadol 50 mg oral tablet take 1 tablet by oral route 3 times a day as needed traZODone hydrochloride 100 mg oral tablet (6 sources) Serotonin Reuptake Inhibitor Start: 07-19-2018 traZODone HCl 100MG Oral Tablet 07/19/2018 Provider: Start: 05-19-2018 End: 05-19-2018 TRAZODONE 100 mg MISC 2018 - 05/19/2018 Provider: Start: 03-13-2018 take 1 tablet by jayson th once daily at bedtime trazodone 100 mg oral tablet 03/13/2018 take 1 tablet (100 mg) by oral route once daily at bedtime Start: 03-13-2018 End: 03-13-2018 TRAZODONE 100 mg [facility] 2017 - 03/13/2018 Provider: take 1 tablet [...] 01-19-2012 Chronic Other aftercare (1 source) Other snf (current) drug therapy; Translations: [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 Steve Valentin CBC AUTO DIFFon 12-31-2021 BASO # 0.0 103/ul Normal 0.0-0.1 [facility] Comment on above: Performed By: #### C TABBY, HSTROPN #### [facility] [address] [address] [address] Steve Valentin Basophils/100 WBC (Bld) 0.9 % Normal 0.2-2.0 [facility] Comment on above: Performed By: #### C TABBY, HSTROPN #### [facility] [address] [address] [address] Steve Valentin EO # 0.2 103/ul Normal 0.0-0.7 [facility] Comment on above: Performed By: #### C TABBY, HSTROPN #### [facility] [address] [address] [address] Steve Valentin Eosinophils/100 WBC (Bld) 4.3 % Normal 0.9-7.0 [facility] Comment on above: Performed By: #### C MP, HSTROPN #### [facility] [address] [place] [address] Dr. Steve Valentin Erythrocyte distribution width (RBC) [Ratio] 14.1 % Normal 11.0-15.0 [facility] Comment on above: Performed By: #### C MP, HSTROPN #### [facility] [address] [place] [address] Dr. Steve Valnetin Hematocrit (Bld) [Volume fraction] 34.6 % Critically low 36.0-48.0 [facility] Comment on above: Performed By: #### C TABBY, HSTROPN #### [facility] [address] [place] [address] Dr. Steve Valentin Hemoglobin (Bld) [Mass/Vol] 10.9 g/dL Critically low 12.0-16.0 [facility] Comment on above: Performed By: #### C TABBY, HSTROPN #### [facility] [address] [place] [address] Dr. Steve Valentin IG # 0.01 10e3/ul Normal 0.00-0.03 [facility] Comment on above: Performed By: #### C TABBY, HSTROPN #### [facility] [address] [place] [address] Dr. Steve Valentin IG % 0.3 % Normal 0.0-0.5 [facility] Comment on above: Performed By: #### C TABBY, HSTROPN #### [facility] [address] [place] [address] Dr. Steve Valentin LYMPH # 0.9 103/ul Critically low 1.2-3.8 [facility] Comment on above: Performed By: #### C TABBY, HSTROPN #### [facility] [address] [place] [address] Dr. Steve Valentin Lymphocytes/100 WBC (Bld) 26.3 % Normal 20.5-60.0 [facility] Comment on above: Performed By: #### C TABBY, HSTROPN #### [facility] [address] [place] [address] Dr. Steve Valentin MANUAL DIFF REQ NO Normal [facility] Comment on above: Performed By: #### C MP, HSTROPN #### [facility] [address] [place] [address] Dr. Steve Valentin MCH (RBC) [Entitic mass] 26.7 pg Normal 26.7-34.0 [facility] Comment on above: Performed By: #### C MP, HSTROPN #### [facility] [address] [place] [address] Dr. Steve Valentin MCHC (RBC) [Mass/Vol] 31.5 g/dL Normal 29.9-35.2 [facility] Comment on above: Performed By: #### C MP, HSTROPN #### [facility] [address] [place] [address] Dr. Steve Valentin MCV (RBC) [Entitic vol] 84.8 fL Normal 81.0-99.0 [facility] Comment on above: Performed By: #### C MP, HSTROPN #### [facility] [address] [place] [address] Dr. Steve Valentin MONO # 0.3 103/ul Normal 0.3-0.8 [facility] Comment on above: Performed By: #### C MP, HSTROPN #### [facility] [address] [place] [address] Dr. Setve Valentin Monocytes/100 WBC (Bld) 9.5 % Normal 1.7-12.0 [facility] Comment on above: Performed By: #### C MP, HSTROPN #### [facility] [address] [place] [address] Dr. Steve Valentin NEUT # 2.0 103/ul Normal 1.4-6.5 [facility] Comment on above: Performed By: #### C MP, HSTROPN #### [facility] [address] [place] [address] Dr. Steve Valentin Neutrophils/100 WBC (Bld) 58.7 % Normal 43.0-75.0 [facility] Comment on above: Performed By: #### C MP, HSTROPN #### [facility] [address] [place] [address] Dr. Steve Valentin Platelet mean volume (Bld) [Entitic vol] 10.5 fL Normal 9.5-13.5 [facility] Comment on above: Performed By: #### C MP, HSTROPN #### [facility] [address] [place] [address] Dr. Steve Valentin PLT 164 103/ul Normal 150-450 [facility] Comment on above: Performed By: #### C MP, HSTROPN #### [facility] [address] [place] [address] Dr. Steve Valentin RBC 4.08 106/ul Critically low 4.20-5.40 [facility] Comment on above: Performed By: #### C MP, HSTROPN #### [facility] [address] [place] [address] Dr. Steve Valentin WBC 3.5 103/ul Critically low 4.0-11.0 [facility] Comment on above: Performed By: #### C TABBY, HSTROPN #### [facility] [address] [place] [address] Dr. Steve Valentin PROF 14(COMP METB)on 022 Albumin [Mass/Vol] 3.0 g/dL Critically low 3.4-5.0 [facility] Comment on above: Performed By: #### C MP #### [facility] [address] [place] [address] Dr. Steve Valentin Albumin/Globulin [Mass ratio] 1.0 {ratio} Normal [facility] Comment on above: Performed By: #### C MP #### [facility] [address] [place] [address] Dr. Steve Valentin ALP [Catalytic activity/Vol] 56 U/L Normal 46-116 [facility] Comment on above: Performed By: #### C MP #### [facility] [address] [place] [address] Dr. Steve Valentin ALT [Catalytic activity/Vol] 20 U/L Normal 14-59 [facility] Comment on above: Performed By: #### C MP #### [facility] [address] [address] [address] Steve Valentin Anion gap [Moles/Vol] 9.3 mmol/L Normal [facility] Comment on above: Performed By: #### C MP #### [facility] [address] [address] [address] Steve Valentin AST [Catalytic activity/Vol] 17 U/L Normal 15-37 [facility] Comment on above: Performed By: #### C MP #### [facility] [address] [address] [address] Steve Valentin Bilirubin [Mass/Vol] 0.2 mg/dL Normal 0.2-1.0 [facility] Comment on above: Performed By: #### C MP #### [facility] [address] [address] [address] Steve Valentin Calcium [Mass/Vol] 8.8 mg/dL Normal 8.5-10.1 [facility] Comment on above: Performed By: #### C MP #### [facility] [address] [address] [address] Steve Valentin Chloride [Moles/Vol] 106 mmol/L Normal 98-107 [facility] Comment on above: Performed By: #### C MP #### [facility] [address] [address] [address] Steve Valentin CO2 [Moles/Vol] 26.5 mmol/L Normal 21.0-32.0 [facility] Comment on above: Performed By: #### C MP #### [facility] [address] [address] [address] Steve Valentin Creatinine [Mass/Vol] 0.92 mg/dL Normal 0.55-1.02 [facility] Comment on above: Performed By: #### C MP #### [facility] [address] [address] [address] Steve Valentin EGFR-AF [facility] >60 Normal >=60 [facility] Comment on above: Performed By: #### C MP #### [facility] [address] [address] [address] Steve Valentin EGFR-NON AF [facility] >60 Normal >=60 [facility] Comment on above: Performed By: #### C MP #### [facility] [address] [address] [address] Steve Valentin Globulin (S) [Mass/Vol] 2.9 g/dL Normal [facility] Comment on above: Performed By: #### C MP #### [facility] [address] [address] [address] Steve Valentin Glucose [Mass/Vol] 97 mg/dL Normal 74-106 [facility] Comment on above: Performed By: #### C MP #### [facility] [address] [place] [address] Dr. Steve Valentin Potassium [Moles/Vol] 3.8 mmol/L Normal 3.5-5.1 [facility] Comment on above: Performed By: #### C MP #### [facility] [address] [place] [address] Dr. Steve Valentin Protein [Mass/Vol] 5.9 g/dL Critically low 6.4-8.2 [facility] Comment on above: Performed By: #### C MP #### [facility] [address] [place] [address] Dr. Steve Valentin Sodium [Moles/Vol] 138 mmol/L Normal 136-145 [facility] Comment on above: Performed By: #### C MP #### [facility] [address] [address] [address] Steve Valentin Urea nitrogen [Mass/Vol] 5.0 mg/dL Critically low 7.0-18.0 [facility] Comment on above: Performed By: #### C MP #### [facility] [address] [place] [address] Dr. Steve Valentin Urea nitrogen/Creatinin e [Mass ratio] 5.4 mg/mg Normal [facility] Comment on above: Performed By: #### C MP #### [facility] [address] [place] [address] Dr. Steve Valentin CBC AUTO DIFFon 12-30-2021 BASO # 0.0 103/ul Normal 0.0-0.1 [facility] Comment on above: Performed By: #### C BC #### [facility] [address] [place] [address] Dr. Steve Valentin Basophils/100 WBC (Bld) 0.5 % Normal 0.2-2.0 [facility] Comment on above: Performed By: #### C BC #### [facility] [address] [place] [address] Dr. Steve Valentin EO # 0.1 103/ul Normal 0.0-0.7 [facility] Comment on above: Performed By: #### C BC #### [facility] [address] [place] [address] Dr. Steve Valentin Eosinophils/100 WBC (Bld) 3.2 % Normal 0.9-7.0 [facility] Comment on above: Performed By: #### C BC #### [facility] [address] [place] [address] Dr. Steve Valentin Erythrocyte distribution width (RBC) [Ratio] 14.0 % Normal 11.0-15.0 [facility] Comment on above: Performed By: #### C BC #### [facility] [address] [place] [address] Dr. Steve Valentin Hematocrit (Bld) [Volume fraction] 38.3 % Normal 36.0-48.0 [facility] Comment on above: Performed By: #### C BC #### [facility] [address] [place] [address] Dr. Steve Valentin Hemoglobin (Bld) [Mass/Vol] 11.7 g/dL Critically low 12.0-16.0 [facility] Comment on above: Performed By: #### C BC #### [facility] [address] [place] [address] Dr. Steve Valentin IG # 0.01 10e3/ul Normal 0.00-0.03 [facility] Comment on above: Performed By: #### C BC #### [facility] [address] [address] [address] Steve Valentin IG % 0.2 % Normal 0.0-0.5 [facility] Comment on above: Performed By: #### C BC #### [facility] [address] [address] [address] Steve Valentin LYMPH # 1.3 103/ul Normal 1.2-3.8 [facility] Comment on above: Performed By: #### C BC #### [facility] [address] [place] [address] Dr. Steve Valentin Lymphocytes/100 WBC (Bld) 29.6 % Normal 20.5-60.0 [facility] Comment on above: Performed By: #### C BC #### [facility] [address] [place] [address] Dr. Steve Valentin MANUAL DIFF REQ NO Normal [facility] Comment on above: Performed By: #### C BC #### [facility] [address] [place] [address] Dr. Steve Valentin MCH (RBC) [Entitic mass] 26.0 pg Critically low 26.7-34.0 [facility] Comment on above: Performed By: #### C BC #### [facility] [address] [place] [address] Dr. Steve Valentin MCHC (RBC) [Mass/Vol] 30.5 g/dL Normal 29.9-35.2 [facility] Comment on above: Performed By: #### C BC #### [facility] [address] [place] [address] Dr. Steve Valentin MCV (RBC) [Entitic vol] 85.1 fL Normal 81.0-99.0 [facility] Comment on above: Performed By: #### C BC #### [facility] [address] [place] [address] Dr. Steve Valentin MONO # 0.5 103/ul Normal 0.3-0.8 [facility] Comment on above: Performed By: #### C BC #### [facility] [address] [place] [address] Dr. Steve Valentin Monocytes/100 WBC (Bld) 10.6 % Normal 1.7-12.0 [facility] Comment on above: Performed By: #### C BC #### [facility] [address] [place] [address] Dr. Steve Valentin NEUT # 2.4 103/ul Normal 1.4-6.5 [facility] Comment on above: Performed By: #### C BC #### [facility] [address] [place] [address] Dr. Steve Valentin Neutrophils/100 WBC (Bld) 55.9 % Normal 43.0-75.0 [facility] Comment on above: Performed By: #### C BC #### [facility] [address] [place] [address] Dr. Steve Valentin Platelet mean volume (Bld) [Entitic vol] 10.0 fL Normal 9.5-13.5 [facility] Comment on above: Performed By: #### C BC #### [facility] [address] [place] [address] Dr. Steve Valentin PLT 169 103/ul Normal 150-450 [facility] Comment on above: Performed By: #### C BC #### [facility] [address] [place] [address] Dr. Steve Valentin RBC 4.50 106/ul Normal 4.20-5.40 [facility] Comment on above: Performed By: #### C BC #### [facility] [address] [place] [address] Dr. Steve Valentin WBC 4.4 103/ul Normal 4.0-11.0 [facility] Comment on above: Performed By: #### C BC #### [facility] [address] [place] [address] Dr. Steve Valentin BASO # 0.0 103/ul Normal 0.0-0.1 [facility] Comment on above: Performed By: #### C BC #### [facility] [address] [place] [address] Dr. Steve Valentin Basophils/100 WBC (Bld) 0.4 % Normal 0.2-2.0 [facility] Comment on above: Performed By: #### C BC #### [facility] [address] [place] [address] Dr. Steve Valentin EO # 0.2 103/ul Normal 0.0-0.7 [facility] Comment on above: Performed By: #### C BC #### [facility] [address] [place] [address] Dr. Steve Valentin Eosinophils/100 WBC (Bld) 2.6 % Normal 0.9-7.0 [facility] Comment on above: Performed By: #### C BC #### [facility] [address] [place] [address] Dr. Steve Valentin Erythrocyte distribution width (RBC) [Ratio] 13.9 % Normal 11.0-15.0 [facility] Comment on above: Performed By: #### C BC #### [facility] [address] [place] [address] Dr. Steve Valentin Hematocrit (Bld) [Volume fraction] 39.1 % Normal 36.0-48.0 [facility] Comment on above: Performed By: #### C BC #### [facility] [address] [place] [address] Dr. Steve Valentin Hemoglobin (Bld) [Mass/Vol] 12.3 g/dL Normal 12.0-16.0 [facility] Comment on above: Performed By: #### C BC #### [facility] [address] [place] [address] Dr. Steve Valentin IG # 0.02 10e3/ul Normal 0.00-0.03 [facility] Comment on above: Performed By: #### C BC #### [facility] [address] [place] [address] Dr. Steve Valentin IG % 0.4 % Normal 0.0-0.5 [facility] Comment on above: Performed By: #### C BC #### [facility] [address] [place] [address] Dr. Steve Valentin LYMPH # 1.1 103/ul Critically low 1.2-3.8 [facility] Comment on above: Performed By: #### C BC #### [facility] [address] [place] [address] Dr. Steve Valentin Lymphocytes/100 WBC (Bld) 18.9 % Critically low 20.5-60.0 [facility] Comment on above: Performed By: #### C BC #### [facility] [address] [place] [address] Dr. Steve Valentin MANUAL DIFF REQ NO Normal [facility] Comment on above: Performed By: #### C BC #### [facility] [address] [place] [address] Dr. Steve Valentin MCH (RBC) [Entitic mass] 26.3 pg Critically low 26.7-34.0 [facility] Comment on above: Performed By: #### C BC #### [facility] [address] [place] [address] Dr. Steve Valentin MCHC (RBC) [Mass/Vol] 31.5 g/dL Normal 29.9-35.2 [facility] Comment on above: Performed By: #### C BC #### [facility] [facility] [address] [place] [address] Dr. Steve Valentin MCV (RBC) [Entitic vol] 83.7 fL Normal 81.0-99.0 [facility] Comment on above: Performed By: #### C BC #### [facility] [address] [place] [address] Dr. Steve Valentin MONO # 0.6 103/ul Normal 0.3-0.8 [facility] Comment on above: Performed By: #### C BC #### [facility] [address] [place] [address] Dr. Steve Valentin Monocytes/100 WBC (Bld) 10.0 % Normal 1.7-12.0 [facility] Comment on above: Performed By: #### C BC #### [facility] [address] [place] [address] Dr. Steve Valnetin NEUT # 3.9 103/ul Normal 1.4-6.5 [facility] Comment on above: Performed By: #### C BC #### [facility] [address] [address] [address] Steve Valentin Neutrophils/100 WBC (Bld) 67.7 % Normal 43.0-75.0 [facility] Comment on above: Performed By: #### C BC #### [facility] [address] [place] [address] Dr. Steve Valentin Platelet mean volume (Bld) [Entitic vol] 10.0 fL Normal 9.5-13.5 [facility] Comment on above: Performed By: #### C BC #### [facility] [address] [place] [address] Dr. Steve Valentin PLT 200 103/ul Normal 150-450 [facility] Comment on above: Performed By: #### C BC #### [facility] [address] [place] [address] Dr. Steve Valentin RBC 4.67 106/ul Normal 4.20-5.40 [facility] Comment on above: Performed By: #### C BC #### [facility] [address] [place] [address] Dr. Steve Valentin WBC 5.7 103/ul Normal 4.0-11.0 [facility] Comment on above: Performed By: #### C BC #### [facility] [address] [place] [address] ABD/PELV W CONon [...] LO COSTA Date: 2021-12-30 08:30 Normal [facility] Covid-19 PCR (CVDTBH)on SARS-CoV-2 (COVID-19) RNA RADHA+probe Ql (Unsp spec) Not detected Normal NOT DETECTED [facility] Comment on above: Result Comment: When diagnostic [...] for this test is supported by the [employer] Operator of Health and Human Service's declaration that [...] used). Performed By: #### C VDTB #### [facility] [address] [place] [address] Dr. Steve Valentin DIRECT COOMBSon 12-30-2021 DIRECT AMARJIT Negative Normal [facility] Comment on above: Performed By: #### C MP, HSTROPN #### [facility] [address] [place] [address] Dr. Steve Valentin LACTATE/LACTIC ACIDon 2021 Lactate [Moles/Vol] 1.2 mmol/L Normal 0.4-1.9 [facility] Comment on above: Performed By: #### L ACT #### [facility] [address] [place] [address] Dr. Steve Valentin PROF 14(COMP METB)on 022 Albumin [Mass/Vol] 3.4 g/dL Normal 3.4-5.0 [facility] Comment on above: Performed By: #### C MP, HSTROPN #### [facility] [address] [place] [address] Dr. Steve Valentin Albumin/Globulin [Mass ratio] 1.1 {ratio} Normal [facility] Comment on above: Performed By: #### C MP, HSTROPN #### [facility] [address] [place] [address] Dr. Steve Valentin ALP [Catalytic activity/Vol] 66 U/L Normal 46-116 [facility] Comment on above: Performed By: #### C MP, HSTROPN #### [facility] [address] [place] [address] Dr. Steve Valentin ALT [Catalytic activity/Vol] 18 U/L Normal 14-59 [facility] Comment on above: Performed By: #### C MP, HSTROPN #### [facility] [address] [place] [address] Dr. Steve Valentin Anion gap [Moles/Vol] 9.1 mmol/L Normal [facility] Comment on above: Performed By: #### C MP, HSTROPN #### [facility] [address] [place] [address] Dr. Steve Valentin AST [Catalytic activity/Vol] 14 U/L Critically low 15-37 [facility] Comment on above: Performed By: #### C MP, HSTROPN #### [facility] [address] [place] [address] Dr. Steve Valentin Bilirubin [Mass/Vol] 0.3 mg/dL Normal 0.2-1.0 [facility] Comment on above: Performed By: #### C TABBY, HSTROPN #### [facility] [address] [place] [address] Dr. Steve Valentin Calcium [Mass/Vol] 9.2 mg/dL Normal 8.5-10.1 [facility] Comment on above: Performed By: #### C TABBY, HSTROPN #### [facility] [address] [place] [address] Dr. Steve Valentin Chloride [Moles/Vol] 104 mmol/L Normal 98-107 [facility] Comment on above: Performed By: #### C TABBY, HSTROPN #### [facility] [address] [place] [address] Dr. Steve Valentin CO2 [Moles/Vol] 25.5 mmol/L Normal 21.0-32.0 [facility] Comment on above: Performed By: #### C TABBY, HSTROPN #### [facility] [address] [place] [address] Dr. Steve Valentin Creatinine [Mass/Vol] 0.94 mg/dL Normal 0.55-1.02 [facility] Comment on above: Performed By: #### C TABBY, HSTROPN #### [facility] [address] [place] [address] Dr. Steve Valentin EGFR-AF [facility] >60 Normal >=60 [facility] Comment on above: Performed By: #### C TABBY, HSTROPN #### [facility] [address] [place] [address] Dr. Steve Valentin EGFR-NON AF [facility] >60 Normal >=60 [facility] Comment on above: Performed By: #### C TABBY, HSTROPN #### [facility] [address] [place] [address] Dr. Steve Valentin Globulin (S) [Mass/Vol] 3.1 g/dL Normal [facility] Comment on above: Performed By: #### C TABBY, HSTROPN #### [facility] [address] [address] [address] Steve Valenitn Glucose [Mass/Vol] 98 mg/dL Normal 74-106 [facility] Comment on above: Performed By: #### C MP, HSTROPN #### [facility] [address] [place] [address] Dr. Steve Valentin Potassium [Moles/Vol] 3.6 mmol/L Normal 3.5-5.1 [facility] Comment on above: Performed By: #### C MP, HSTROPN #### [facility] [address] [place] [address] Dr. Steve Valentin Protein [Mass/Vol] 6.5 g/dL Normal 6.4-8.2 [facility] Comment on above: Performed By: #### C MP, HSTROPN #### [facility] [address] [place] [address] Dr. Steve Valentin Sodium [Moles/Vol] 135 mmol/L Critically low 136-145 [facility] Comment on above: Performed By: #### C MP, HSTROPN #### [facility] [address] [place] [address] Dr. Steve Valentin Urea nitrogen [Mass/Vol] 11.0 mg/dL Normal 7.0-18.0 [facility] Comment on above: Performed By: #### C MP, HSTROPN #### [facility] [address] [place] [address] Dr. Steve Valentin Urea nitrogen/Creatinin e [Mass ratio] 11.7 mg/mg Normal [facility] Comment on above: Performed By: #### C MP, HSTROPN #### [facility] [address] [place] [address] Dr. Steve Valentin TROPONIN, HIGH SENSITIVITYon 12-30-2021 HSTROP 8.6 pg/mL Normal 4.0-51.3 [facility] Comment on above: Result Comment: CUT- OFF POINTS HAVE BEEN ESTABLISHED BASED ON THE FOURTH UNIVERSAL DEFINITIONS OF MYOCARDIAL INFARCTION. THE UPPER REFERENCE LIMIT (URL) OF TROPONIN, DEFINED THE 99TH PERCENTILE OF cTnI DISTRIBUTION IN A REFERENCE POPULATION, HAS BEEN CONFIRMED THE DECISION THRESHOLD FOR [place] DIAGNOSIS. Performed By: #### C MP, HSTROPN #### [facility] [address] [place], [place] [address] Dr. Steve Valentin TYPE AND SCREENon 12-30-2021 TYPE AND SCREEN Positive Normal [facility] Comment on above: Performed By: #### T NS #### [facility] [address] [place], [place] [address] Dr. Steve Valentin XR CERVICAL SPINE (2-3 [...] Interpreted by: Yaritza Pinedo MD Signed by: aYritza Pinedo MD 01/20/20 Final result Normal [facility] Multilevel degenerative changes [place], [place] EXAMINATION: XRAY VIEWS OF THE CERVICAL [...] dislocation or significant prevertebral soft tissue swelling [place], [place], [employer] Incoming Radiant Results From [employer] - 01/20/2020 11:34 AM EDT EXAMINATION: XRAY [...] soft tissue swelling IMPRESSION: Multilevel degenerative changes [facility] [place] XR LUMBAR SPINE (2-3 VIEWS)o n 01-20-2020 [...] Mitesh Ho MD 01/20/20 Final result Normal [facility] No acute abnormality lumbosacral spine. Degenerative findings most severe at L5-S1, with evidence DDD. [place], [place] EXAMINATION: THREE XRAY VIEWS OF THE LUMBAR [...] Large amount of retained stool right colon. [place], [place], [employer] Incoming Radiant Results From [employer] - 01/20/2020 12:11 PM EDT EXAMINATION: THREE [...] most severe at L5-S1, with evidence DDD. [facility], [place] Hematologyon 01-25-2018 Basophils Auto #/vol (Bld) 0.7 % Invalid Interpretation Code [facility] Basophils/100 WBC Auto (Bld) 0.0 K/uL Invalid Interpretation Code 0.0-0.1 [facility] Eosinophils/100 WBC Auto (Bld) 3.2 % Invalid Interpretation Code [facility] Erythrocyte distribution width Auto Ratio (RBC) 14.2 % Invalid Interpretation Code 10.8-14.8 [facility] Hematocrit Auto Volume Fraction (Bld) 34.70 % Invalid Interpretation Code 36.0-48.0 [facility] Hemoglobin S Solubility test Ql (Bld) 11.7 Invalid Interpretation Code 12.0-16.0 [facility] Lymphocytes/100 WBC Auto (Bld) 43.3 % Invalid Interpretation Code [facility] MCH Auto Entitic mass (RBC) 27.1 pg Invalid Interpretation Code 27.0-34.0 [facility] MCHC Auto mass conc (RBC) 33.7 g/dL Invalid Interpretation Code 31.0-36.0 [facility] MCV Auto Entitic volume (RBC) 80.5 fL Invalid Interpretation Code 80.-100. [facility] Monocytes/100 WBC Auto (Bld) 6.5 % Invalid Interpretation Code [facility] Neutrophils/100 WBC Auto (Bld) 46.1 % Invalid Interpretation Code [facility] Nucleated RBC/100 WBC Ratio (Bld) 0.1 10*3/uL Invalid Interpretation Code 0.1-0.4 [facility] Nucleated RBC/100 WBC Ratio (Bld) 1.9 10*3/uL Invalid Interpretation Code 0.8-5.2 [facility] Nucleated RBC/100 WBC Ratio (Bld) 0.3 10*3/uL Invalid Interpretation Code 0.1-0.9 [facility] Nucleated RBC/100 WBC Ratio (Bld) 2.0 10*3/uL Invalid Interpretation Code 1.3-9.1 [facility] RBC Auto #/vol (Bld) 4.310 10*6/uL Invalid Interpretation Code 4.00-5.50 [facility] Metabolic Panelon 01-25-2018 Albumin mass conc 4.10 g/dL Invalid Interpretation Code 3.5-5.2 [facility] ALP enzyme act/vol 50 U/L Invalid Interpretation Code 30-111 [facility] ALT enzyme act/vol 14 U/L Invalid Interpretation Code 5-40 [facility] Anion gap 3 molar conc 12 mmol/L Invalid Interpretation Code 10-19 [facility] AST enzyme act/vol 13 U/L Invalid Interpretation Code 9-40 [facility] Calcium mass conc 9.90 mg/dL Invalid Interpretation Code 8.5-10.5 [facility] Chloride molar conc 103 mmol/L Invalid Interpretation Code 95-107 [facility] CO2 molar conc 28 mmol/L Invalid Interpretation Code 19-31 [facility] Creatinine mass conc 1.0 mg/dL Invalid Interpretation Code 0.6-1.3 [facility] Glucose mass conc 89 mg/dL Invalid Interpretation Code 70-99 [facility] Potassium molar conc 4.30 mmol/L Invalid Interpretation Code 3.5-5.4 [facility] Protein mass conc 6.0 g/dL Invalid Interpretation Code 6.1-8.3 [facility] Protein mass conc 0.59 g/dL Invalid Interpretation Code <0.5 [facility] Sodium molar conc 143 mmol/L Invalid Interpretation Code 135-146 [facility] Urea nitrogen mass conc 14.0 mg/dL Invalid Interpretation Code 8-23 [facility] Otheron 01-25-2018 Bilirubin Ql (U) 0.2 Invalid Interpretation Code <1.3 [facility] WBC LM Ql (Sput) 4.4 Invalid Interpretation Code 3.7-10.8 [facility] 74.5 Invalid Interpretation Code >59 [facility] 237 Invalid Interpretation Code 150.-450. [facility] 15 Invalid Interpretation Code 0-30 [facility] 64.3 Invalid Interpretation Code >59 [facility] Thyroidon 01-25-2018 T4 free mass conc 1.140 ng/dL Invalid Interpretation Code 0.80-1.90 [facility] Thyrotropin Qn 1.750 uIU/mL Invalid Interpretation Code 0.400-4.100 [facility] Progress Noteon 10-23-2017 HIM IP Note OR Er Rn Normal [facility] HIM IP Note OR Er Rn Normal [facility] Otheron 09-20-2017 3 Invalid Interpretation Code [facility] 3 Invalid Interpretation Code [facility] Cardiacon 09-14-2017 Cholesterol 220 mg/dL Invalid Interpretation Code <200 [facility] HDL Cholesterol 77.0 mg/dL Invalid Interpretation Code >39 [facility] Triglyceride 113.0 mg/dL Invalid Interpretation Code <150 [facility] Hematologyon 09-14-2017 Basophils Auto #/vol (Bld) 1.0 % Invalid Interpretation Code [facility] Basophils/100 WBC Auto (Bld) 0.1 K/uL Invalid Interpretation Code 0.0-0.1 [facility] Eosinophils/100 leukocytes 2.9 % Invalid Interpretation Code [facility] Erythrocyte distribution width Auto Ratio (RBC) 14.1 % Invalid Interpretation Code 10.8-14.8 [facility] Erythrocytes (RBC) 4.230 10*6/uL Invalid Interpretation Code 4.00-5.50 [facility] Hematocrit (HCT) 37.0 % Invalid Interpretation Code 36.0-48.0 [facility] Hemoglobin S presence 11.7 Invalid Interpretation Code 12.0-16.0 [facility] Lipoprotein a mass conc 0.2 10*3/uL Invalid Interpretation Code 0.1-0.4 [facility] Lipoprotein a mass conc 2.0 10*3/uL Invalid Interpretation Code 0.8-5.2 [facility] Lipoprotein a mass conc 0.5 10*3/uL Invalid Interpretation Code 0.1-0.9 [facility] Lipoprotein a mass conc 2.6 10*3/uL Invalid Interpretation Code 1.3-9.1 [facility] Lymphocytes/100 leukocytes 37.6 % Invalid Interpretation Code [facility] [employer] [facility] MCH 27.7 pg Invalid Interpretation Code 27.0-34.0 [facility] MCHC mass conc (RBC) 31.6 g/dL Invalid Interpretation Code 31.0-36.0 [facility] MCV 87.5 fL Invalid Interpretation Code 80.-100. [facility] Monocytes/100 leukocytes 8.8 % Invalid Interpretation Code [facility] Neutrophils/100 leukocytes 49.5 % Invalid Interpretation Code [facility] WBC (Leukocytes) 5.2 10*3/uL Invalid Interpretation Code 3.7-10.8 [facility] Otheron 09-14-2017 Cholesterol crystals Infrared spectroscopy Ql (Stone) 220 mg/dL Invalid Interpretation Code <200 [facility] Cholesterol to HDL Ratio 2.9 {ratio} Invalid Interpretation Code <5 [facility] LDL to HDL Ratio 1.6 Invalid Interpretation Code <3.5 [facility] Lipoprotein.beta/L ipoprotein.alpha mass ratio 1.6 Invalid Interpretation Code <3.5 [facility] PreB-LP SerPl-mCnc 23.0 mg/dL Invalid Interpretation Code <30 [facility] PreB-LP SerPl-mCnc 120.0 mg/dL Invalid Interpretation Code <130 [facility] WBC LM Ql (Sput) 5.2 Invalid Interpretation Code 3.7-10.8 [facility] 298 Invalid Interpretation Code 150.-450. [facility] [employer] [facility] Thyroidon 09-14-2017 Thyroid stimulating hormone (TSH) 2.270 uIU/mL Invalid Interpretation Code 0.40-4.10 [facility] Thyroxine (T4) free 0.990 ng/dL Invalid Interpretation Code 0.80-1.90 [facility] Vital Signs Date Time Vital Sign Value Performing Clinician Khanhi hilarioy 02-13-2018 13:08-0400 BMI (Body Mass Index) 56.47 kg/m2 [facility] 02-13-2018 13:08-0400 Body Temperature 98 [degF] [facility] 02-13-2018 13:08-0400 BP Diastolic 80 mm[Hg] [facility] 02-13-2018 13:08-0400 BP Systolic 124 mm[Hg] [facility] 02-13-2018 13:08-0400 BSA (Body Surface Area) 2.39 m2 [facility] 02-13-2018 13:08-0400 Height 153.67 cm [facility] 02-13-2018 13:08-0400 Pulse (Heart Rate) 74 /min [facility] 02-13-2018 13:08-0400 Pulse Oximetry 97 % [facility] 02-13-2018 13:08-0400 Respiratory Rate 20 /min [facility] 02-13-2018 13:08-0400 Weight 133.36 kg [facility] 02-13-2018 10:08-0400 Body height 153.67 cm [facility] Work Phone: [facility] Work Phone: 02-13-2018 10:08-0400 Body mass index (BMI) [Ratio] 56.5 kg/m2 Leda Agrawal CNP Work Phone: [facility] Work Phone: 02-13-2018 10:08-0400 Body surface area Derived from formula 2.21 m2 Leda Agrawal CNP Work Phone: [facility] Work Phone: 02-13-2018 10:08-0400 Body temperature 98 [degF] Leda Agrawal CNP Work Phone: [facility] Work Phone: 02-13-2018 10:08-0400 Body weight 133.36 kg Leda Agrawal CNP Work Phone: [facility] Work Phone: 02-13-2018 10:08-0400 Diastolic blood pressure 80 mm[Hg] Leda Agrawal CNP Work Phone: [facility] Work Phone: 02-13-2018 10:08-0400 Heart rate 74 /min Leda Agrawal CNP Work Phone: [facility] Work Phone: 02-13-2018 10:08-0400 Respiratory rate 20 /min Leda Agrawal CNP Work Phone: [facility] Work Phone: 02-13-2018 10:08-0400 Systolic blood pressure 124 mm[Hg] Leda Agrawal CNP Work Phone: [facility] Work Phone: 01-25-2018 12:47-0400 BMI (Body Mass Index) 56.47 kg/m2 Leda Agrawal [facility] 01-25-2018 12:47-0400 Body Temperature 98.4 [degF] [facility] 01-25-[facility] 12:47-0400 BP Diastolic 82 mm[Hg] [facility] 01-25-2018 12:47-0400 BP Systolic 122 mm[Hg] [facility] 01-25-2018 12:47-0400 BSA (Body Surface Area) 2.39 m2 [facility] 01-25-2018 12:47-0400 Height 153.67 cm [facility] 01-25-2018 12:47-0400 Pulse (Heart Rate) 73 /min [facility] 01-25-2018 12:47-0400 Pulse Oximetry 96 % [facility] 01-25-2018 12:47-0400 Respiratory Rate 18 /min [facility] 01-25-2018 12:47-0400 Weight 133.36 kg [facility] 01-25-2018 09:47-0400 Body height 153.67 cm Leda Agrawal [facility] Work Phone: [facility] Work Phone: 01-25-2018 09:47-0400 Body mass index (BMI) [Ratio] 56.5 kg/m2 Leda Agrawal [facility] Work Phone: [facility] Work Phone: 01-25-2018 09:47-0400 Body surface area Derived from formula 2.21 m2 Leda Agrawal [facility] Work Phone: [facility] Work Phone: 01-25-2018 09:47-0400 Body temperature 98.4 [degF] Leda Agrawal [facility] Work Phone: [facility] Work Phone: 01-25-2018 09:47-0400 Body weight 133.36 kg Leda Agrawal CNP Work Phone: [facility] Work Phone: 01-25-2018 09:47-0400 Diastolic blood pressure 82 mm[Hg] Leda Agrawal CNP Work Phone: [facility] Work Phone: 01-25-2018 09:47-0400 Heart rate 73 /min Leda Agrawal CNP Work Phone: [facility] Work Phone: 01-25-2018 09:47-0400 Respiratory rate 18 /min Leda Agrawal CNP Work Phone: [facility] Work Phone: 01-25-2018 09:47-0400 Systolic blood pressure 122 mm[Hg] Leda Agrawal CNP Work Phone: [facility] Work Phone: 11-14-2017 18:20-0400 BMI (Body Mass Index) 56.47 kg/m2 [facility] 11-14-2017 18:20-0400 Body Temperature 97.4 [degF] [facility] 11-14-2017 18:20-0400 BP Diastolic 80 mm[Hg] [facility] 11-14-2017 18:20-0400 BP Systolic 130 mm[Hg] [facility] 11-14-2017 18:20-0400 BSA (Body Surface Area) 2.39 m2 [facility] 11-14-2017 18:20-0400 Height 153.67 cm [facility] 11-14-2017 18:20-0400 Pulse (Heart Rate) 96 /min Leda Agrawal [facility] 11-14-2017 18:20-0400 Pulse Oximetry 95 % Leda Agrawal [facility] 11-14-2017 18:20-0400 Respiratory Rate 18 /min Leda Agrawal [facility] 11-14-2017 18:20-0400 Weight 133.36 kg Leda Agrawal [facility] 11-14-2017 15:20-0400 Body height 153.67 cm Leda Agrawal CNP Work Phone: [facility] Work Phone: 11-14-2017 15:20-0400 Body mass index (BMI) [Ratio] 56.5 kg/m2 Leda Agrawal CNP Work Phone: [facility] Work Phone: 11-14-2017 15:20-0400 Body surface area Derived from formula 2.21 m2 Leda Agrawal CNP Work Phone: [facility] Work Phone: 11-14-2017 15:20-0400 Body temperature 97.4 [degF] Leda Agrawal CNP Work Phone: [facility] Work Phone: 11-14-2017 15:20-0400 Body weight 133.36 kg Leda Agrawal CNP Work Phone: [facility] Work Phone: 11-14-2017 15:20-0400 Diastolic blood pressure 80 mm[Hg] Leda Agrawal CNP Work Phone: [facility] Work Phone: 11-14-2017 15:20-0400 Heart rate 96 /min Leda Agrawal CNP Work Phone: [facility] Work Phone: 11-14-2017 15:20-0400 Respiratory rate 18 /min Leda Agrawal COIN WRAPPING MACHINE OPERATOR Work Phone: [facility] Work Phone: 11-14-2017 15:20-0400 Systolic blood pressure 130 mm[Hg] Leda Agrawal COIN WRAPPING MACHINE OPERATOR Work Phone: [facility] Work Phone: 10-12-2017 11:11-0400 BMI (Body Mass Index) 57.12 kg/m2 [facility] 10-12-2017 11:11-0400 Body Temperature 98.8 [degF] [facility] 10-12-2017 11:11-0400 BP Diastolic 83 mm[Hg] [facility] 10-12-2017 11:11-0400 BP Systolic 122 mm[Hg] [facility] 10-12-2017 11:11-0400 BSA (Body Surface Area) 2.4 m2 [facility] 10-12-2017 11:11-0400 Height 153.67 cm [facility] 10-12-2017 11:11-0400 Pulse (Heart Rate) 79 /min [facility] 10-12-2017 11:11-0400 Pulse Oximetry 99 % [facility] 10-12-2017 11:11-0400 Respiratory Rate 18 /min [facility] 10-12-2017 11:11-0400 Weight 134.89 kg [facility] 10-12-2017 10:11-0400 BMI (Body Mass Index) 57.12 kg/m2 [facility] 10-12-2017 10:11-0400 Body Temperature 98.8 [degF] [facility] 10-12-2017 10:11-0400 BP Diastolic 83 mm[Hg] [facility] 10-12-2017 10:11-0400 BP Systolic 122 mm[Hg] [facility] 10-12-2017 10:11-0400 BSA (Body Surface Area) 2.4 m2 [facility] 10-12-2017 10:11-0400 Height 153.67 cm [facility] 10-12-2017 10:11-0400 Pulse (Heart Rate) 79 /min [facility] 10-12-2017 10:11-0400 Pulse Oximetry 99 % [facility] 10-12-2017 10:11-0400 Respiratory Rate 18 /min [facility] 10-12-2017 10:11-0400 Weight 134.89 kg [facility] 10-12-2017 08:11-0400 Body height 153.67 cm Leda Tanja [facility] Work Phone: [facility] Work Phone: 10-12-2017 08:11-0400 Body mass index (BMI) [Ratio] 57 kg/m2 Leda Agrawal [facility] Work Phone: [facility] Work Phone: 10-12-2017 08:11-0400 Body surface area Derived from formula 2.22 m2 Leda Agrawal [facility] Work Phone: [facility] Work Phone: 10-12-2017 08:11-0400 Body temperature 98.8 [degF] Leda gArawal CNP Work Phone: [facility] Work Phone: 10-12-2017 08:11-0400 Body weight 134.72 kg Leda Agrawal CNP Work Phone: [facility] Work Phone: 10-12-2017 08:11-0400 Diastolic blood pressure 83 mm[Hg] Leda Agrawal CNP Work Phone: [facility] Work Phone: 10-12-2017 08:11-0400 Heart rate 79 /min Leda Agrawal CNP Work Phone: [facility] Work Phone: 10-12-2017 08:11-0400 Respiratory rate 18 /min Leda Agrawal CNP Work Phone: [facility] Work Phone: 10-12-2017 08:11-0400 Systolic blood pressure 122 mm[Hg] Leda Agrawal CNP Work Phone: [facility] Work Phone: 09-20-2017 17:04-0400 BP Diastolic 80 mm[Hg] [facility] 09-20-2017 17:04-0400 BP Systolic 136 mm[Hg] [facility] 09-20-2017 16:19-0400 BMI (Body Mass Index) 59.21 kg/m2 [facility] 09-20-2017 16:19-0400 Body Temperature 97.1 [degF] 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 [facility] 09-20-2017 16:19-0400 BP Diastolic 80 mm[Hg] [facility] 09-20-2017 16:19-0400 BP Systolic 142 mm[Hg] [facility] 09-20-2017 16:19-0400 BSA (Body Surface Area) 2.44 m2 [facility] 09-20-2017 16:19-0400 Height 153.67 cm [facility] 09-20-2017 16:19-0400 Pulse (Heart Rate) 94 /min [facility] 09-20-2017 16:19-0400 Pulse Oximetry 96 % [facility] 09-20-2017 16:19-0400 Respiratory Rate 18 /min [facility] 09-20-2017 16:19-0400 Weight 139.82 kg [facility] 09-20-2017 16:04-0400 BP Diastolic 80 mm[Hg] [facility] 09-20-2017 16:04-0400 BP Systolic 136 mm[Hg] [facility] 09-20-2017 15:19-0400 BMI (Body Mass Index) 59.21 kg/m2 [facility] 09-20-2017 15:19-0400 Body Temperature 97.1 [degF] [facility] 09-20-2017 15:19-0400 BP Diastolic 80 mm[Hg] [facility] 09-20-2017 15:19-0400 BP Systolic 142 mm[Hg] [facility] 09-20-2017 15:19-0400 BSA (Body Surface Area) 2.44 m2 Leda Agrawal [facility] 09-20-2017 15:19-0400 Height 153.67 cm [facility] 09-20-2017 15:19-0400 Pulse (Heart Rate) 94 /min [facility] 09-20-2017 15:19-0400 Pulse Oximetry 96 % [facility] 09-20-2017 15:19-0400 Respiratory Rate 18 /min [facility] 09-20-2017 15:19-0400 Weight 139.82 kg [facility] 09-20-2017 14:04-0400 Diastolic blood pressure 80 mm[Hg] Leda Agrawal CNP Work Phone: [facility] Work Phone: 09-20-2017 14:04-0400 Systolic blood pressure 136 mm[Hg] Leda Agrawal CNP Work Phone: [facility] Work Phone: 09-20-2017 13:19-0400 Body height 153.67 cm Leda Agrawal CNP Work Phone: [facility] Work Phone: 09-20-2017 13:19-0400 Body mass index (BMI) [Ratio] 59.2 kg/m2 Leda Agrawal CNP Work Phone: [facility] Work Phone: 09-20-2017 13:19-0400 Body surface area Derived from formula 2.26 m2 Leda Agrawal CNP Work Phone: [facility] Work Phone: 09-20-2017 13:19-0400 Body temperature 97.1 [degF] Leda Agrawal CNP Work Phone: [facility] Work Phone: 09-20-2017 13:19-0400 Body weight 139.71 kg Leda Agrawal CNP Work Phone: [facility] Work Phone: 09-20-2017 13:19-0400 Diastolic blood pressure 80 mm[Hg] Leda Agrawal CNP Work Phone: [facility] Work Phone: 09-20-2017 13:19-0400 Heart rate 94 /min Leda Agrawal CNP Work Phone: [facility] Work Phone: 09-20-2017 13:19-0400 Respiratory rate 18 /min Leda Agrawal CNP Work Phone: [facility] Work Phone: 09-20-2017 13:19-0400 Systolic blood pressure 142 mm[Hg] Leda Agrawal CNP Work Phone: [facility] Work Phone: 09-14-2017 12:35-0400 BMI (Body Mass Index) 59.76 kg/m2 [facility] 09-14-2017 12:35-0400 Body Temperature 97 [degF] [facility] 09-14-2017 12:35-0400 BP Diastolic 72 mm[Hg] [facility] 09-14-2017 12:35-0400 BP Systolic 122 mm[Hg] [facility] 09-14-2017 12:35-0400 BSA (Body Surface Area) 2.45 m2 [facility] 09-14-2017 12:35-0400 Height 153.67 cm [facility] 09-14-2017 12:35-0400 Pulse (Heart Rate) 71 /min [facility] 09-14-2017 12:35-0400 Pulse Oximetry 97 % [facility] 09-14-2017 12:35-0400 Respiratory Rate 18 /min [facility] 09-14-2017 12:35-0400 Weight 141.13 kg [facility] 09-14-2017 11:35-0400 BMI (Body Mass Index) 59.76 kg/m2 [facility] 09-14-2017 11:35-0400 Body Temperature 97 [degF] [facility] 09-14-2017 11:35-0400 BP Diastolic 72 mm[Hg] [facility] 09-14-2017 11:35-0400 BP Systolic 122 mm[Hg] [facility] 09-14-2017 11:35-0400 BSA (Body Surface Area) 2.45 m2 [facility] 09-14-2017 11:35-0400 Height 153.67 cm [facility] 09-14-2017 11:35-0400 Pulse (Heart Rate) 71 /min [facility] 09-14-2017 11:35-0400 Pulse Oximetry 97 % [facility] 09-14-2017 11:35-0400 Respiratory Rate 18 /min [facility] 09-14-2017 11:35-0400 Weight 141.13 kg Leda Agrawal [facility] 09-14-2017 09:35-0400 Body height 153.67 cm Leda Agrawal CNP Work Phone: [facility] Work Phone: 09-14-2017 09:35-0400 Body mass index (BMI) [Ratio] 59.7 kg/m2 Leda Agrawal CNP Work Phone: [facility] Work Phone: 09-14-2017 09:35-0400 Body surface area Derived from formula 2.27 m2 Leda Agrawal CNP Work Phone: [facility] Work Phone: 09-14-2017 09:35-0400 Body temperature 97 [degF] Leda Agrawal CNP Work Phone: [facility] Work Phone: 09-14-2017 09:35-0400 Body weight 141.07 kg Leda Agrawal CNP Work Phone: [facility] Work Phone: 09-14-2017 09:35-0400 Diastolic blood pressure 72 mm[Hg] Leda Agrawal CNP Work Phone: [facility] Work Phone: 09-14-2017 09:35-0400 Heart rate 71 /min Leda Agrawal CNP Work Phone: [facility] Work Phone: 09-14-2017 09:35-0400 Respiratory rate 18 /min Leda Agrawal CNP Work Phone: [facility] Work Phone: 09-14-2017 09:35-0400 Systolic blood pressure 122 mm[Hg] Leda Agrawal CNP Work Phone: [facility] Work Phone: Encounters Encounter Date Encounter Type Care Provider Facility Start: 04-15-2022 End: 04-17-2022 ambulatory QUYNH GIANNI Facility:[facility] Start: 02-08-2022 End: 02-09-2022 ambulatory NANCI BEEBE Facility:[facility] Start: 12-30-2021 End: 12-31-[address] FLOR RIVERA Facility:[facility] Start: 01-20-2020 End: 01-23-2020 Patient encounter procedure [facility] Start: 01-20-2020 End: 01-22-2020 Subsequent hospital visit by physician Roman Palacio Dr Room 4 [facility] Comment on above: Chronic bilateral lo w back pain without sciatica Chronic neck pain; Chronic bilateral low back pain without sciatica Start: 07-31-2018 Patient encounter procedure Heath Kirkpatrick Facility:[id number] Start: 07-20-2018 End: 07-20-2018 General Leda Tanja COIN WRAPPING MACHINE OPERATOR Work Phone: [facility] Work Phone: Start: 02-13-2018 End: 02-13-2018 Patient encounter procedure Leda Tanja COIN WRAPPING MACHINE OPERATOR Work Phone: [facility] Work Phone: Start: 02-13-2018 Office outpatient vi sit 15 minutes Leda Alvaresen Other [facility] Start: 01-25-2018 End: 01-25-2018 Patient encounter procedure Leda Tanja COIN WRAPPING MACHINE OPERATOR Work Phone: [facility] Work Phone: Start: 01-25-2018 Office outpatient vi sit 15 minutes Leda Tanja Other [facility] Start: 11-14-2017 Office outpatient vi sit 15 minutes Leda Tanja Other [facility] Start: 11-14-2017 End: 11-14-2017 Patient encounter procedure Leda Tanja COIN WRAPPING MACHINE OPERATOR Work Phone: [facility] Work Phone: Start: 10-12-2017 End: 10-12-2017 Patient encounter procedure Leda Tanja COIN WRAPPING MACHINE OPERATOR Work Phone: [facility] Work Phone: Start: 10-12-2017 End: 10-12-2017 Office outpatient visit 15 minutes Leda Agrawal Other [facility] Start: 10-12-2017 Polysom 6/>yrs sleep 4/> addl nicky attnd Leda Agrawal [facility] Start: 10-12-2017 Polysom 6/>yrs sleep w/cpap 4/> addl nicky attnd Leda Agrawal [facility] Start: 09-20-2017 End: 09-20-2017 Office outpatient visit 15 minutes Leda Agrawal Other [facility] Start: 09-20-2017 End: 09-20-2017 Patient encounter procedure Leda Agrawal CNP Work Phone: [facility] Work Phone: Start: 09-14-2017 End: 09-14-2017 Patient encounter procedure Leda Agrawal CNP Work Phone: [facility] Work Phone: Start: 09-14-2017 Laboratory examinati on, unspecified Leda Agrawal [facility] Start: 09-14-2017 Colonoscopy w/biopsy single/multiple Leda Agrawal [facility] Start: 09-14-2017 Dxa bone density kourtney dy 1/> sites axial skel Leda Agrawal [facility] Start: 09-14-2017 End: 09-14-2017 Office outpatient new 45 minutes Leda Agrawal Other [facility] Procedures Date Procedure Procedure Detail Performing [...] quach Start: 09-14-2017 Pap not indicated Leda Agrawal Start: 09-14-2017 Physical therapy management Leda Agrawal Start: 09-14-2017 Pt-focused hlth risk assmt score doc stnd instrm Leda Tanja Start: 09-14-2017 Pulmonology. Leda Dia quach Plan of Treatment Date Care Activity Detail Author Start: 04-30-2020 End: 04-30-2020 Office Visit 04/30/2020 Office Visit Neurology Tim Sharma MD [address] [place] [address] [facility] Start: 12-24-2019 Influenza vaccination Flu vaccine (#1) [place], [place] Start: 08-31-2019 Screening for malignant neoplasm of lung Low dose CT lung screening [place], [place] Start: 02-13-2019 Creatinine measurement Creatinine monitoring [place], [place] Start: 11-30-2018 Potassium monitoring Potassium monitoring [place] Start: 11-08-2018 Lipid panel Lipid screen [place] Start: 08-02-2018 [facility] visit, estab pt Established Patient [facility] Work Phone: Start: 10-12-2017 Polysom 6/>yrs sleep 4/> addl nicky attnd Polysomnography with CPAP testing [facility] Start: 10-12-2017 Polysom 6/>yrs sleep w/cpap 4/> addl nicky attnd Polysomnography with CPAP testing [facility] Start: 09-14-2017 Dual energy X-ray photon absorptiometry DEXA scan for body composition study [facility] Start: 08-22-2016 Screening for malignant neoplasm of breast Breast cancer screen [place], [place] Start: 01-24-2016 Screening for malignant neoplasm of cervix Cervical cancer screen [place], [place] Start: 2014 Screening for malignant neoplasm of colon Colon cancer screen colonoscopy [place], [place] Start: 2014 Shingles Vaccine (1 of 2) Shingles Vaccine (1 of 2) [place], [place] Start: 08-31-1983 DTaP/Tdap/Td vaccine (1 - Tdap) DTaP/Tdap/Td vaccine (1 - Tdap) [place] Start: 08-31-1979 HIV screening HIV screen [place], [place] Start: 1970 Pneumococcal 0-64 years Vaccine (1 of 1 - PPSV23) Pneumococcal 0-64 years Vaccine (1 of 1 - PPSV23) [place], [place] Start: 1964 Hepatitis C screening Hepatitis C screen [place] Payers Date Payer Category Payer Medicaid [id number] 1959 Private Health Insurance [id number] 1964 Unknown [id number] 1964 Unknown [id number] [id number] 1964 Unknown [id number] [id number] 1964 Unknown [id number] [id number] 1964 Unknown [id number] 1964 Unknown [id number] [id number] 1964 Unknown [id number] Social History Date Type Detail Facility [facility]: [facility] Start: End: 12-17-2012 Current every day smoker [facility] End: 12-17-2012 History of tobacco use Cigarette Smoker [place] Start: 01-20-2020 Cigarettes smoked current (pack per day) - Reported [place] Start: 01-20-2020 Tobacco use and exposure Never used [place] Start: 01-20-2020 Alcohol intake 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) [place] Sex Assigned At Not on file [place] Exposure to SARS-CoV -2 (event) Not sure [place] Tobacco smoking status Unknown if ever sm oked [facility] Work Phone: Clinical Note 02-09-2022 Note Date [...] by: LO COSTA Date: 2022-02-09 06:49 [facility] Clinical Note 02-09-2022 Note Date & Type [...] by: LO COSTA Date: 2022-02-09 06:49 [facility] Evaluation note Note Date & Type Note Facility Evaluation note Includes: Assessments for all patient encountersNo Assessments Recorded [facility] Work Phone: History of Present illness Narrative Note Date & Type Note Facility History of Present illness Narrative History of Present Illness not supported for this document typeNo History of Present Illness Recorded [facility] Work Phone: Instructions Note Date & Type Note Facility Instructions Instructions not supported for this document typeNo Instructions Recorded [facility] Work Phone: Patient problem outcome Narrative Note Date & Type Note Facility Patient problem outcome Narrative Includes: Evaluations & Outcomes for active GoalsNo Outcomes Recorded [facility] Work Phone: Review of systems Narrative - Reported Note Date & Type Note Facility Review of systems Narrative - Reported Review of Systems not supported for this document typeNo Review of Systems Recorded [facility] [employer] [facility] Work Phone: History of Past Illness [...] FoundDocuments on File Type Date 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 ACP-Advance Directive 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 Assessments Diagnosis Chronic bilateral low back pain without sciatica Diagnosis Chronic neck pain Cervicalgia Chronic bilateral low back pain without sciatica Physical Exam Physical Exam not supported for this document type No Physical Exam Recorded Additional Source Comments INFORMATION SOURCE (unrecogn ized section and content) DATE CREATED AUTHOR 10/23/2017 [facility] DATE CREATED AUTHOR AUTHOR'S ORGANIZ ATION 08/01/2018 [facility] DATE CREATED AUTHOR AUTHOR'S ORGANIZ ATION 08/11/2018 [employer] DATE CREATED AUTHOR AUTHOR'S ORGANIZ ATION 01/23/2020 [facility] DATE CREATED AUTHOR AUTHOR'S ORGANIZ [...] BE BASED ON THE PRIMARY CLINICAL RECORDS. [facility] [employer] [facility]. provides no warranty or guarantee of the accuracy or completeness of information in this document.
--- NOTE | 2023-07-21 08:30 | XR_ITS ---
The [address] [address] Patient Name: DANIELLE MONTANA MRN: [id number] date: 1965 Sex: F Assigned Patient Location: ER Current Patient Location: ED.MAIN Accession/Order Number: [id number] Exam Date: 07/21/2023 08:35 Report Date: 07/21/2023 09:16 At the request of: LIANA SMITH Procedure: XR chest 1V EXAMINATION: XR chest 1V HISTORY: cough COMPARISON: XR chest 02/12/2023 FINDINGS: LUNGS: Underexpanded lungs with mild haziness within medial right lung base and lateral left lung base. VASCULATURE: No increased pulmonary vasculature. PLEURA: No pneumothorax, effusion, or pleural thickening. CARDIAC: No cardiomegaly or cardiac silhouette abnormality. MEDIASTINUM: No visible mass or adenopathy. BONES: No fracture or visible bone lesion. OTHER: Negative. XR/XR chest 1V IMPRESSION: 1. Low lung volume examination with trace amount of bibasilar atelectasis versus infiltrates. 2. Examination is limited by patient body habitus and AP portable technique. Electronically authenticated by: LO COSTA Date: 07/21/2023 09:16
--- NOTE | 2023-07-21 08:36 | ED_ITS ---
HPI - SOB/Dyspnea General Chief Complaint: Shortness of Breath/Dyspnea Stated Complaint: SHORTNESS OF BREATH Time Seen by Provider: 07/21/23 08:26 Source: patient Mode of arrival: ambulance Limitations: no limitations History of Present Illness HPI Narrative: 57-year-old female presents to the emergency department for cough that she has had for months. She has COPD and has a nebulizer at home but has not used it in months. The patient was given an aerosol treatment by the paramedics. She has not seen her physician in 3 months. No fever or productive cough. She does not complain to me of chest pain. Related Data Previous Rx's ?Medication ?Instructions ?Recorded azithromycin 250 mg tablet See Rx Instructions PO .COMPLEX #6 02/12/23 (Zithromax Z-Tao) tabs prednisone 50 mg tablet 50 mg PO DAILY 5 days #5 tabs 02/12/23 azithromycin 250 mg tablet See Rx Instructions PO .COMPLEX #6 07/21/23 (Zithromax Z-Tao) tabs prednisone 10 mg tablet See Rx Instructions .Route 07/21/23 .COMPLEX #30 tabs Allergies Allergy/AdvReac Type Severity Reaction Status Date / Time codeine Allergy Intermediate Verified 04/24/23 20:59 pregabalin [From Lyrica] Allergy Intermediate Verified 04/24/23 20:59 sulfamethoxazole Allergy Intermediate Verified 04/24/23 20:59 [From Bactrim] trimethoprim [From Bactrim] Allergy Intermediate Verified 04/24/23 20:59 Review of Systems ROS Narrative A ten point review of systems is negative except as noted above. PFSH PFSH Social History Smoking status: Current every day smoker Exam Narrative Exam Narrative: Nurses note and vital signs reviewed and patient is not hypoxic. General: The patient appears in no acute respiratory distress. She coughs frequently. Skin: Warm, dry, no pallor noted. There is no rash noted. Head: Normocephalic, atraumatic Eye: Normal conjunctiva, no drainage Ears, Nose, Mouth, and Throat: oral mucosa is moist. Nares patent. Cardiovascular: Regular Rate and Rhythm Respiratory: Breath sounds are equal bilaterally with good air movement. Back: non-tender GI: Obese soft and nontender Musculoskeletal: The patient has no evidence of calf tenderness, no pitting edema, symmetrical pulses noted bilaterally Neurological: A&O, normal speech Psychiatric: Cooperative Constitutional Vital Signs, click to edit/add: Last Vital Signs Temp 98.5 F 07/21/23 08:18 Pulse 79 07/21/23 09:39 Resp 18 07/21/23 09:39 BP 131/75 07/21/23 08:18 Pulse Ox 98 07/21/23 09:39 O2 Del Method Room Air 07/21/23 09:39 Course Vital Signs Vital signs: Vital Signs Temperature 98.5 F 07/21/23 08:18 Pulse Rate 98 H 07/21/23 08:18 Respiratory Rate 20 07/21/23 08:18 Blood Pressure 131/75 07/21/23 08:18 Pulse Oximetry 98 07/21/23 08:18 Oxygen Delivery Method Room Air 07/21/23 08:18 Temperature 98.5 F 07/21/23 08:18 Pulse Rate 79 07/21/23 09:39 Respiratory Rate 18 07/21/23 09:39 Blood Pressure 131/75 07/21/23 08:18 Pulse Oximetry 98 07/21/23 09:39 Oxygen Delivery Method Room Air 07/21/23 09:39 MDM - SOB/Dyspnea MDM Narrative Medical decision making narrative: Chest x-ray shows atelectasis versus infiltrate. She was given IM Solu-Medrol and prescribed prednisone and Zithromax. She will follow-up with her doctor and has an appointment in 5 days that she will keep. Treatment diagnosis and follow-up were discussed with the patient. Differential Diagnosis Differential diagnosis: Likely acute exacerbation of chronic obstructive airways disease, congestive heart failure and community acquired pneumonia Imaging Data Chest x-ray: Radiologist's impression: ITS Impressions Chest X-Ray 07/21/23 08:30 IMPRESSION: 1. Low lung volume examination with trace amount of bibasilar atelectasis versus infiltrates. 2. Examination is limited by patient body habitus and AP portable technique. Electronically authenticated by: LO COSTA Date: 07/21/2023 09:16 Discharge Plan Discharge Stand Alone Forms: Portal Instructions Chief Complaint: Shortness of Breath/Dyspnea Clinical Impression: COPD exacerbation Patient Disposition: Home, Self-Care Time of Disposition Decision: 09:38 Condition: Good Mode of Transportation: Private Vehicle Prescriptions / Home Meds: New prednisone 10 mg tablet See Rx Instructions .ROUTE .COMPLEX Qty: 30 0RF Rx Instructions: 4 by mouth daily for three days then 3 by mouth daily for three days then 2 by mouth daily for three days then 1 by mouth daily for three days azithromycin [Zithromax Z-Tao] 250 mg tablet See Rx Instructions .ROUTE .COMPLEX Qty: 6 0RF Rx Instructions: For 250 mg dose pack: take 500 mg today (day 1), then 250 mg for 4 days (days 2-5) No Action azithromycin [Zithromax Z-Tao] 250 mg tablet See Rx Instructions .ROUTE .COMPLEX Qty: 6 0RF Hold Instructions: dc Rx Instructions: For 250 mg dose pack: take 500 mg today (day 1), then 250 mg for 4 days (days 2-5) prednisone 50 mg tablet 50 mg PO DAILY 5 Days Qty: 5 0RF Hold Instructions: dc Print Language: Persian Instructions: COPD (Chronic Obstructive Pulmonary Disease) (ED) Referrals: Shaikh Vasquez MD [Primary Care Provider] - 1 week
[2023-07-21] MEDS: ALBUTEROL SULFATE 2.5 MG/3 ML VIAL NEB IH (08:46)
[2023-07-21 08:48] VITALS: PULSE 80; O2SAT 96
[2023-07-21 08:50] VITALS: PULSE 80
[2023-07-21] MEDS: METHYLPREDNISOLONE SOD SUCC PF 125 MG/2 ML VIAL IVP (09:01)
[2023-07-21 09:39] VITALS: PULSE 79; O2SAT 98
== END 2023-07-21 09:45 | disposition home or self-care (01) ==
PROVIDERS: Emergency Provider Emergency Medicine; PCP Internal Medicine
DX: J44.1 Chronic obstructive pulmonary disease with (acute) exacerbation (principal); F17.210 Nicotine dependence, cigarettes, uncomplicated; E66.9 Obesity, unspecified; Z68.44 Body mass index [BMI] 60.0-69.9, adult
CPT/HCPCS: 71045; 94640; 96374; 99284; J2930

== ENCOUNTER 2024-01-20 10:31 | Emergency (ER) | payer OTHER, SELFPAY ==
--- OUTSIDE RECORDS SUMMARY | 2024-01-20 10:37 | XMS_ITS | CCD ---
Author Organization [facility] Care Team Providers Care Drug Safety Specialist Name Role Phone Tanja, Leda Unavailable Unavailable Unavailable Unavailable Unavailable Unavailable Unavailable Unavailable Tanja, Leda Unavailable Unavailable Tanja, Leda Unavailable Unavailable Unavailable Unavailable Unavailable Heath Kirkpatrick Attending Gisselle vailable Heath Kirkpatrick Referring Gisselle vailable Rumschlag, Mignon Primary Care Provider TIM SHARMA Referring Unavailab le RUMSCHLAG, MIGNON Primary Care Unavailable TIM SHARMA Referring Unavailab le RUMSCHLAG, MIGNON Primary Care Unavailable TIM SHARMA Referring Unavailab le RUMSCHLAG, MIGNON Primary Care Unavailable Tanja NANOELECTRONICS ENGINEER, Leda Unavailable DR FLOR RIVERA Attending Unavailable NICOLE, DR FLOR Novoa Admitting Unavailable [facility] Primary Care Unavailable LIYAH, DR EBEN Couch Consulting Unavailblanca KAT, DR FRIEDA Tobar Consulting Unavailblanca e JULISSA, DR LO Hdz Consulting Unavailable NICOLE, DR FLOR Novoa Consulting Unavailable MARKER, DR KHAN Consulting Unavailable NANCI BEEBE Attending Unavailable NANCI BEEBE Admitting Unavailable JULISSA, DR LO Hdz Consulting Unavailable [facility] Primary Care Unavailable NANCI BEEBE Consulting Unavailable QUYNH ARCHER Attending Unavailable QUYNH ARCHER Admitting Unavailable [facility] Primary Care Unavailable QUYNH ARCHER Consulting Unavailable SHAIKH BOOKER Attending Unavailable SHAIKH BOOKER Attending Unavailable ALTOROK, NEZAM I Referring Unavailable RASHAAD BLACKMAN Attending Unavailab le ALTOROK, NEZAM I Attending Unavailable NATASHA RANDLE. Admitting Unavailable NATASHA RANDLE. Attending Unavailable ANTIONE BRITO Referring Unavailable PCP, NOT IN SYSTEM Primary Care Unavailable IRVING MUJICA Consulting Unavailable ALTOROK, NEZAM SMITH Consulting Unavailab le AL-MAURICE, WANDA T Attending Unavailable AL-MAURICE, WANDA T Referring Unavailable ZAMORA, SHAWN E Primary Care Unavailable ALTOROK, NEZAM SMITH Referring Unavailab le ZAMORA, SHAWN E Primary Care Unavailable ALTOROK, NEZAM SMITH Referring Unavailab le ZAMORA, SHAWN E Primary Care Unavailable PCP, NOT IN SYSTEM Primary Care Unavailable JOSE TORRES Attending Unavailable DRE PRIETO Admitting Unavailable VIOLETA ELY Consulting Unavailable FRAN WILD Consulting Unavailable JOSE TORRES Attending Unavailable JOSE TORRES Referring Unavailable PCP, NOT IN SYSTEM Primary Care Unavailable ZAMORA, SHAWN E Referring Unavailable ZAMORA, SHAWN E Primary Care Unavailable ZAMORA, SHAWN E Referring Unavailable ZAMORA, SHAWN E Primary Care Unavailable AL-MAURICE, WANDA Referring Unavailable ZAMORA, HSAWN E Primary Care Unavailable Allergies Allergy Classification Reported Allergen(s) Allergy Type Date of Onset Reaction(s) Facility (11 sources) codeine; Translations: [Codeine] Drug Allergy 01-19-20 12 Nausea And Vomiting [facility] (4 sources) pregabalin; Translations: [Lyrica] Drug Allergy [facility] (4 sources) sulfamethoxazole / trimethoprim; Translations: [Bactrim] Drug Allergy [facility] (4 sources) -No Environmental Allergies; Translations: [-No Environmental Allergies] Allergy to substance (disorder) [facility] (2 sources) -No Known Food Allergies Allergy to substance (disorder) [facility] (3 sources) NSAIDs Propensity to adverse reactions to drug 02-24-20 15 Other (See Comments) [place] (6 sources) pregabalin; Translations: [PREGABALIN] Drug Allergy 01-19-20 12 Other (See Comments) [place] (6 sources) Sulfamethoxazole / Trimethoprim; Translations: [SULFAMETHOXAZOLE-T RIMETHOPRIM] Drug Allergy 11-15-19 16 Hives [place] (1 source) pregabalin Drug Allergy 12-31-19 22 [facility] (1 source) Sulfamethoxazole / Trimethoprim Drug Allergy 04-15-20 22 [facility] Medications Current Medications Medication Drug Class(es) Dates Sig (Normalized) Sig (Original) acetaminophen 325 mg oral tablet (3 sources) take 2 tablets by mouth every four hours as needed for pain acetaminophen (TYLENOL) 325 MG tablet Take 650 mg by mouth every 4 hours as needed for Pain 0 Active [id number] 200 actuat albuterol 0.09 mg/actuat metered dose inhaler (8 sources) beta2-Adrenergic Agonist Start: 07-19-2018 Ventolin HFA 108 (90 Base)MCG/ACT Inhalation Aerosol, solution 07/19/2018 Provider: Start: 05-19-2018 End: 05-19-2018 VENTOLIN HFA 90MCG/ACTUAT [place] 05/19/2018 - 05/19/2018 Provider: take 2 [...] CALCIUM 600 600 mg calcium(1 ,500 MG) [facility] 09/14/2017 - 09/14/2017 Provider: [...] 11-14-2017 take 1 tablet by jayson th once daily at bedtime as needed for cough Zyrtec 10 mg oral tablet 11/14/2017 take 1 tablet (10 mg) by oral route once daily at bedtime as needed for cough/congestion Start: 11-14-2017 End: 11-14-2017 ZYRTEC 10 mg [facility] 11/14/2017 - 11/14/2017 Provider: donepezil hydrochloride 10 mg oral tablet (3 sources) take 1 tablet by mouth once daily donepezil (ARICEPT) 10 MG tablet Take 10 mg by mouth nightly 0 Active DULoxetine 30 mg delayed release oral capsule (15 sources) Serotonin and Norepinephrine Reuptake Inhibitor Start: 07-20-19 19 DULoxetine HCl 30MG Oral Capsule, delayed-release particles 07/19/2018 Provider: Start: 05-19-2018 End: 05-19-2018 DULOXETINE 30MG [facility] - 05/19/2018 Provider: Start: 05-19-2018 End: 05-19-2018 [facility]OX[facility]INE 60[facility] - 05/19/2018 Provider: Start: 03-07-2018 DULoxetine HCl 60MG Oral Capsule, delayed-release particles 07/19/2018 Provider: Start: 03-07-2018 take 1 capsule by mo uth once daily duloxetine 30 mg oral capsule,delayed release(DR/EC) 03/07/2018 take 1 capsule (30 mg) by oral route once daily, take with 60 mg capsule to equal 90 mg daily Start: 03-07-2018 End: 03-07-2018 DULOXETINE 60MG MISC 018 - 03/07/2018 Provider: Start: 03-07-2018 End: 03-07-2018 DULOXETINE 30MG [facility] 018 - 03/07/2018 Provider: take 1 capsule by mo uth once daily duloxetine 30 mg oral capsule,delayed release(DR/EC) take 1 capsule (30 mg) by oral route once daily ergocalciferol 1.25 mg oral capsule (4 sources) Provitamin D2 Compound Start: 07-19-2018 Ergocalciferol [id number] Oral Capsule, conventional 07/19/2018 Provider: Start: 09-14-2017 take 1 capsule by mo ut every week Vitamin D2 50,000 unit oral [...] 03-13-2018 take 1 capsule by mo [facility] twice daily hydroxyzine pamoate 50 mg oral capsule 03/13/2018 take 1 capsule (50 mg) by oral route 2 times per day Start: 03-13-2018 End: 03-13-2018 HYDROXYZINE PAMOATE 50MG MIS C 03/13/2018 - 03/13/2018 Provider: meloxicam 15 mg oral tablet (5 sources) Nonsteroidal Anti-inflammatory Drug Start: 07-19-2018 Mobic 15MG Oral Tablet 07/19/2018 Provider: Start: 09-14-2017 End: 09-14-2017 Mobic 15MG OR TABS 8 - 09/14/2017 Provider: omeprazole 40 mg delayed [...] mg inhalant powder (3 sources) Anticholinergic Start: 019 take 1 capsule by inhalation once daily tiotropium (SPIRIVA HANDIHALER) 18 MCG inhalation capsule Inhale 1 capsule into the lungs daily 30 capsule 11 02/21/2019 Active traMADol hydrochloride 50 mg oral tablet (6 sources) Opioid Agonist Start: 019 traMADol HCl 50MG Oral Tablet 07/19/2018 Provider: Start: 05-19-2018 End: 05-19-2018 TRAMADOL 50 mg MISC 05/19/19 - 05/19/2018 Provider: Start: 11-14-2017 take 1 tablet by jayson th every eight hours as needed for pain tramadol 50 mg oral tablet 11/14/2017 take 1 tablet (50 mg) by oral route every 8 hours as needed for chronic back pain / osteoarthritis (M51.36/M19.90) Start: 11-14-2017 End: 11-14-2017 TRAMADOL 50 mg MISC 11/15/19 18 - 11/14/2017 Provider: take 1 [...] Start: 03-13-2018 End: 03-13-2018 TRAZODONE 100 mg [facility] 2017 - 03/13/2018 Provider: [...] Start: 02-13-2018 End: 02-13-2018 CLINDAMYCIN HCL 300MG [facility] 02/13/2018 - 02/13/2018 Provider: Start: 02-13-2018 End: [...] Problem Classification Problem Date Documented Date Episodic/Chronic Acute and unspecified renal failure (2 sources) Acute kidney failure, unspecified; Translations: [Acute kidney failure, unspecified] Onset: 10-18-2023 Episodic Anxiety disorders (1 source) Generalized anxiety disorder; [...] Ill-defined closed fractures of upper limb Episodic Hypertension with complications and secondary hypertension (1 source) Hypertensive urgency; Translations: [Hypertensive urgency] Onset: 10-14-2023 Chronic Mood disorders (4 sources) Depressive disorder; Translations: [Bipolar disorder, unspecified] Onset: 11-08-2013 11-08-2013 Chronic Nephritis; nephrosis; renal sclerosis (1 source) 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; Translations: [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] Onset: 10-31-2023 Chronic Osteoarthritis (5 sources) Osteoarthrosis, unspecified whether generalized or localized, site unspecified; Translations: [Osteoarthritis] Onset: 01-19-2012 01-19-2012 Chronic Other aftercare (4 sources) Other fdc (current) drug therapy; Translations: [OTH GROUP HOME CURRENT DRUG THERAPY] Onset: 04-19-2022 Episodic Other aftercare (3 sources) correction (current) use of systemic steroids; Translations: [building cleaner (current) use of systemic steroids] Onset: 11-07-2023 Episodic Other circulatory disease (1 source) Personal [...] Other chronic pain Onset: 02-13-2018 Chronic Other nervous system disorders (1 source) Unsteadiness on feet; Translations: [Unsteadiness on feet] Onset: 10-18-2023 Episodic Other non-traumatic joint disorders (3 sources) Pain [...] LEFT KNEE INITIAL ENC] Onset: 04-19-2022 Episodic Systemic lupus erythematosus and connective tissue disorders (3 sources) Microscopic polyangiitis; Translations: [Microscopic polyangiitis] Onset: 10-27-2023 Chronic Unclassified (1 source) CONTACT W/AND (SUSP) EXPOS COVID-19; Translations: [CONTACT W/AND (SUSP) EXPOS COVID-19] Onset: 01-05-2022 Unclassified (3 sources) Antineutrophilic cytoplasmic antibody (ANCA) vasculitis; 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] Onset: 12-19-2023 Unclassified (2 sources) Immunodeficiency due to drugs; 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] Onset: 11-07-2023 Unclassified (1 source) ERIN Onset: 10-18-2023 Unclassified (1 source) Outpatient Infusion Onset: 11-29-2023 Unclassified (1 source) Arm Swelling Onset: 10-14-2023 Unclassified (1 source) NAUSEA, CHEST PAIN, SWOLLEN FEET Onset: 10-14-2023 Past or Other Problems Problem Classification Problem Date Documented Da te Episodic/Chronic Administrative/social admission (1 source) Other reasons for seeking consultation Onset: 8 Episodic Fluid and electrolyte disorders (1 source) Hypokalemia; Translations: [Hypokalemia] Onset: 4 Episodic Gastrointestinal hemorrhage (4 sources) Hemorrhage of anus and rectum; Translations: [Gastrointestinal hemorrhage, unspecified] Onset: 2 Episodic Malaise and fatigue (3 sources) Other malaise and fatigue; Translations: [Weakness] Onset: 8 Episodic Nausea and vomiting (1 source) Nausea Onset: 4 Episodic Noninfectious gastroenteritis (1 source) Noninfective gastroenteritis and colitis, unspecified; Translations: [NONINFECTIVE GE AND COLITIS UNS] Onset: 2 Episodic Nonspecific chest pain (1 source) Chest pain, unspecified; Translations: [Chest pain, unspecified] Onset: 4 Episodic Other bone disease and musculoskeletal deformities (1 source) Tietze's disease Onset: 8 Episodic Other bone disease and musculoskeletal deformities (1 source) Other disorders of bone and cartilage Onset: 8 Episodic Other connective tissue disease (2 sources) Fibromyositis; Translations: [Fibromyalgia] Onset: 9 Episodic Other connective tissue disease (3 sources) Fibromyalgia; Translations: [Fibromyalgia syndrome] Onset: 4 11-08-2013 Episodic Other connective tissue disease (1 source) Leg swelling symptom Onset: 4 Episodic Other lower respiratory disease (1 source) Cough Onset: 4 Episodic Other nervous system disorders (3 sources) Meralgia paresthetica of right leg; Translations: [Meralgia paresthetica of right side] Onset: 4 Resolved: 8 03-27-2018 Other non-traumatic joint disorders (3 sources) Pain in joint, lower leg Onset: 8 Episodic Other non-traumatic joint disorders (1 source) Pain in joint, pelvic region and thigh Onset: 8 Episodic Other nutritional; endocrine; and metabolic disorders (3 sources) Obesity; Translations: [Obesity] Onset: 2 Resolved: 4 11-08-2013 Chronic Other screening for suspected conditions (not mental disorders or infectious disease) (3 sources) Screening for diabetes mellitus; Translations: [Special screening for malignant neoplasms of colon] Onset: 8 Episodic Residual codes; unclassified (1 source) Family history of other neurological diseases Onset: 8 Episodic Residual codes; unclassified (1 source) Edema Onset: 8 Episodic Residual codes; unclassified (1 source) Memory loss Onset: 8 Episodic Residual codes; unclassified (3 sources) Memory impairment; Translations: [Memory change] Onset: 8 02-13-2018 Episodic Unclassified (1 source) Antineutrophilic cytoplasmic antibody (ANCA) vasculitis; 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] Onset: 4 Unclassified (1 source) Immunodeficiency due to drugs; 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] Onset: 4 Results Test Name Value Interpretation Reference Range Facility BASIC METABOLIC PANLon 01-11 Anion gap [Moles/Vol] 12 mmol/L Normal 5-15 [facility] Comment on above: Performed By: #### 8 9579-7 #### [facility] ([id number]) [address] [place] [address] 84086 Calcium [Mass/Vol] 9.4 mg/dL Normal 8.5-10.5 [place] Comment on above: Performed By: #### 8 9579-7 #### [facility] ([id number]) [address] [place] [address] 38058 Chloride [Moles/Vol] 104 mmol/L Normal 98-109 [facility] Comment on above: Performed By: #### 8 9579-7 #### [facility] ([id number]) [address] [place] [address] 24813 CO2 [Moles/Vol] 28 mmol/L Normal 22-32 [facility] Comment on above: Performed By: #### 8 9579-7 #### [facility] ([id number]) [address] [place] [address] 38316 Creatinine [Mass/Vol] 1.22 mg/dL High 0.40-1.00 [facility] Comment on above: Result Comment: METH OD TRACEABLE TO IDMS STANDARD Performed By: #### 8 9579-7 #### [facility] ([id number]) [address] [place] [address] 04785 GFR/1.73 sq M.predicted among non-blacks MDRD (S/P/Bld) [Vol rate/Area] 51 mL/min/{1.73_m2} Low >59 [facility] Comment on above: Result Comment: Reported eGFR is based on the CKD-EPI 2020 equation that does not use a race coefficient. Performed By: #### 8 9579-7 #### [facility] ([id number]) [address] [place] [address] 94402 Glucose [Mass/Vol] 100 mg/dL High 65-99 [place] Comment on above: Performed By: #### 8 9579-7 #### [facility] ([id number]) [address] [place] [address] 28419 Potassium [Moles/Vol] 3.8 mmol/L Normal 3.5-5.0 [facility] Comment on above: Performed By: #### 8 9579-7 #### [facility] ([id number]) [address] [place] [address] 52032 Sodium [Moles/Vol] 144 mmol/L Normal 134-146 [place] Comment on above: Performed By: #### 8 9579-7 #### [facility] ([id number]) [address] [place] [address] 26187 Urea nitrogen [Mass/Vol] 17 mg/dL Normal 5-23 [facility] Comment on above: Performed By: #### 8 9579-7 #### [facility] ([id number]) [address] [place] [address] 18483 COMPLETE BLOOD COUNT 01-11 Erythrocyte distribution width (RBC) [Ratio] 16.7 % High 11.5-15.0 [facility] Comment on above: Performed By: #### 8 9579-7 #### [facility] ([id number]) [address] [place] [address] 44698 Hematocrit (Bld) [Volume fraction] 33.6 % Low 35-47 [facility] Comment on above: Performed By: #### 8 9579-7 #### [facility] ([id number]) [address] [place] [address] 72522 Hemoglobin (Bld) [Mass/Vol] 11.2 g/dL Low 11.7-15.5 [facility] Comment on above: Performed By: #### 8 9579-7 #### [facility] ([id number]) [address] [place] [address] 88382 MCH (RBC) [Entitic mass] 28.8 pg Normal 27-34 [facility] Comment on above: Performed By: #### 8 9579-7 #### [facility] ([id number]) [address] [place] [address] 38159 MCHC (RBC) [Mass/Vol] 33.3 g/dL Normal 32-36 [facility] Comment on above: Performed By: #### 8 9579-7 #### [facility] ([id number]) [address] [place] [address] 90963 MCV (RBC) [Entitic vol] 87 fL Normal 80-100 [facility] Comment on above: Performed By: #### 8 9579-7 #### [facility] ([id number]) [address] [place] [address] 91599 Platelet mean volume (Bld) [Entitic vol] 9.7 fL Normal 7-12 [facility] Comment on above: Performed By: #### 8 9579-7 #### [facility] ([id number]) [address] [place] [address] 65587 Platelets (Bld) [#/Vol] 268 10*3/uL Normal 150-450 [facility] Comment on above: Performed By: #### 8 9579-7 #### [facility] ([id number]) [address] [place] [address] 87329 RBC COUNT 3.88 X10E12/L Normal 3.80-5.20 [facility] Comment on above: Performed By: #### 8 9579-7 #### [facility] ([id number]) [address] [place] [address] 71792 WBC (Bld) [#/Vol] 8.8 10*3/uL Normal 4.0-11.0 [place] Comment on above: Performed By: #### 8 9579-7 #### [facility] ([id number]) [address] [place] [address] 44436 Creatinine (U) [Mass/Vol]on 01-12-2024 URINE CREATININE,RDM 107.95 mg/dL Normal [facility] Comment on above: Performed By: #### Shahla POOLE CMP, 16493-9 #### [facility] ([id number]) [address] [place] [address] 51862 HBV core Ab IA Qlon 01-12-20 ANTI HBc Negative Normal NEG [facility] Comment on above: Performed By: #### Shahla POOLE CMP, 17472-4 #### [facility] ([id number]) [address] [place] [address] 50515 HBV surface Ab IA Qnon 01-11 Anti HBs quant. <8.00 Normal [facility] Comment on above: Result Comment: Vacc inated: >=12mIU/mL, Positive (Immune) Unvaccinated: <8mIU/mL, Negative (Not Immune) 8-11.99 mIU/mL: Indeterminate, (Considered Not Immune) Performed By: #### Shahla POOLE CMP, #### [facility] ([id number]) [address] [place] [address] 34229 HBV surface Ag IA Qlon 01-11 HEPATITIS B SURF AG Negative Normal NEG [facility] Comment on above: Performed By: #### Shahla POOLE CMP, 20704-9 #### [facility] ([id number]) [address] [place] [address] 35350 MAGNESIUMon 01-12-2024 Magnesium [Mass/Vol] 1.6 mg/dL Low 1.8-2.6 [facility] Comment on above: Performed By: #### 8 9579-7 #### [facility] ([id number]) [address] [place] [address] 72152 PHOSPHORUSon 01-12-2024 Phosphate [Mass/Vol] 3.6 mg/dL Normal 2.4-4.9 [facility] Comment on above: Performed By: #### 8 9579-7 #### [facility] ([id number]) [address] [place] [address] 03399 PROTEIN CREAT RATIOon 2023 RANDOM URINE PROTEIN 4520 mg/L High <120 [facility] Comment on above: Performed By: #### C VIRGILIO [facility], 80399-3 #### [facility] ([id number]) [address] [place] [address] 96212 U/PRO/GEOCHEMICAL MANAGER RATIO CALC 4.15 High <0.2 [facility] Comment on above: Result Comment: Neph rotic Syndrome is associated with ratios >3.5 Performed By: #### C EDEL POOLE, #### [facility] ([id number]) [address] [place] [address] 36702 URINE CREATININE,RDM 108.96 mg/dL Normal [facility] Comment on above: Performed By: #### C EDEL POOLE, #### [facility] ([id number]) [address] [place] [address] 28627 Parathyrin.intact [Mass/Vol] on 01-12-2024 PTH INTACT 69 pg/mL Normal 12-88 [facility] Comment on above: Performed By: #### C EDEL POOLE, #### [facility] ([id number]) [address] [place] [address], [place] [address] Protein (U) [Mass/Vol]on RANDOM URINE PROTEIN 4560 mg/L High <120 [facility] Comment on above: Performed By: #### C VIRGILIO, CMP, #### [facility] ([id number]) [address] [place] [address], [place] [address] URINALYSISon 01-12-2024 Bilirubin Ql (U) Negative Normal NEG [facility] Comment on above: Performed By: #### C EDEL POOLE, #### [facility] ([id number]) [address] [place] [address] [place] [address] BLOOD/HGB Small Abnormal NEG [facility] Comment on above: Performed By: #### Shahla POOLE CMP, #### [facility] ([id number]) [address] [place] [address], [place] [address] Color (U) YELLOW Normal YELLOW [facility] Comment on above: Performed By: #### C VIRGILIO, CMP, 72485-9 #### [facility] ([id number]) [address] [place] [address] [place] [address] Glucose Ql (U) Negative Normal NEG [facility] Comment on above: Performed By: #### C VIRGILIO CMP, 66517-7 #### [facility] ([id number]) [address] [place] [address] [place] [address] Hyaline casts LM Ql (Urine sed) 1 /lpf Normal 0-2 [facility] Comment on above: Performed By: #### C VIRGILIO, CMP, 35633-7 #### [facility] ([id number]) [address] [place] [address] [place] [address] Ketones Ql (U) Negative Normal NEG [facility] Comment on above: Performed By: #### C VIRGILIO CMP, 29042-3 #### [facility] ([id number]) [address] [place] [address] 18111 Leukocyte esterase Test strip Ql (U) Negative Normal NEG [facility] Comment on above: Performed By: #### C VIRGILIO CMP, 70707-5 #### [facility] ([id number]) [address] [place] [address] [place] [address] MUCOUS PRESENT Abnormal NONE [facility] Comment on above: Performed By: #### C VIRGILIO CMP, 82987-6 #### [facility] ([id number]) [address] [place] [address] 25252 Nitrite Ql (U) Negative Normal NEG [facility] Comment on above: Performed By: #### Shahla POOLE CMP, 72490-6 #### [facility] ([id number]) [address] [place] [address] 39361 pH (U) 6.5 [pH] Normal 5.0-8.5 [facility] Comment on above: Performed By: #### Shahla POOLE CMP, 95681-5 #### [facility] ([id number]) [address] [place] [address] 98798 Protein Ql (U) 300 mg/dL Abnormal NEG [facility] Comment on above: Performed By: #### Shahla POOLE CMP, 45502-5 #### [facility] ([id number]) [address] [place] [address] 56325 R.B.CELLS 0 /hpf Normal 0-5 [facility] Comment on above: Performed By: #### Shahla POOLE CMP, 46761-2 #### [facility] ([id number]) [address] [place] [address] 16241 Specific gravity (U) [Rel density] 1.015 Normal 1.003-1.035 [facility] Center Comment on above: Performed By: #### C VIRGILIO [facility], 13680-3 #### [facility] ([id number]) [address] [place] [address], [place] [address] SQUAMOUS EPITHELIUM 1 /hpf Normal 0-[address] [facility] Comment on above: Performed By: #### Shahla POOLE [facility], 72873-0 #### [facility] ([id number]) [address] [place] [address] [place] [address] TURBIDITY CLEAR Normal CLEAR [facility] Comment on above: Performed By: #### Shahla POOLE [facility], 99605-6 #### [facility] ([id number]) [address] [place] [address] Urobilinogen (U) [Mass/Vol] mg/dL Normal <1.1 [facility] Comment on above: Performed By: #### Shahla POOLE [facility], 97857-4 #### [facility] ([id number]) [address] [place] [address] [place] [address] W.B.CELLS 2 /hpf Normal 0-5 [facility] Comment on above: Performed By: #### Shahla POOLE [facility], 46272-1 #### [facility] ([id number]) [address] [place] [address] [place] [address] Vitamin D+Metabolites [Mass/ Vol]on 01-12-2024 VITAMIN D 25 HYD TOT 23.5 ng/mL Low 30-100 [facility] Comment on above: Result Comment: Vitamin D status 25 [place] Vitamin D Deficiency <20 ng/mL Insufficiency 20-29 ng/mL Sufficiency 30-100 ng/mL Toxicity >100 ng/mL NOTE: A pediatric reference range has not been established by the academic associate of this kit. The [place] [employer] recommends a Vitamin D level of = or >20ng/mL in infants and children. Performed By: #### C VIRGILIO CMP, #### [facility] ([id number]) [address] [place] [address], [place] [address] COMPLETE BLOOD COUNTon 12-18 Erythrocyte distribution width (RBC) [Ratio] 16.7 % High 11.5-15.0 [facility] Comment on above: Performed By: #### C BCA, CMP, , 2776-04, 1987-08 #### [facility] ([id number]) [address], [address] [place] [address] Hematocrit (Bld) [Volume fraction] 30.1 % Low 35-47 [facility] Comment on above: Performed By: #### C BCA, CMP, , 2776-04, 1987-08 #### [facility] ([id number]) [address], [address] [place] [address] Hemoglobin (Bld) [Mass/Vol] 9.6 g/dL Low 11.7-15.5 [facility] Comment on above: Performed By: #### C BCA, CMP, , 2776-04, 1987-08 #### [facility] ([id number]) [address], [address] [place] [address] MCH (RBC) [Entitic mass] 27.3 pg Normal 27-34 [facility] Comment on above: Performed By: #### C BCA, CMP, , 2776-04, 1987-08 #### [facility] ([id number]) [address], [address] [place] [address] MCHC (RBC) [Mass/Vol] 32.0 g/dL Normal 32-36 [facility] Comment on above: Performed By: #### C BCA, CMP, , 2776-04, 1987-08 #### [facility] ([id number]) [address], [address] [place] [address] MCV (RBC) [Entitic vol] 86 fL Normal 80-100 [facility] Comment on above: Performed By: #### Shahla BCA, CMP, , 2776-04, 1987-08 #### [facility] ([id number]) [address], [facility] [address] [place] [address] Platelet mean volume (Bld) [Entitic vol] 9.1 fL Normal 7-12 [facility] Comment on above: Performed By: #### C BCA, CMP, , 2776-04, 1987-08 #### [facility] ([id number]) [address] [address] Platelets (Bld) [#/Vol] 361 10*3/uL Normal 150-450 [facility] Comment on above: Performed By: #### Shahla BCA, CMP, , 2776-04, 1987-08 #### [facility] ([id number]) [address], [facility] [address] [place] [address] RBC COUNT 3.52 X10E12/L Low 3.80-5.20 [facility] Comment on above: Performed By: #### Shahla BCA, CMP, , 2776-04, 1987-08 #### [facility] ([id number]) [address] [address] WBC (Bld) [#/Vol] 8.2 10*3/uL Normal 4.0-11.0 [facility] Comment on above: Performed By: #### Shahla BCA, CMP, , 2776-04, 1987-08 #### [facility] ([id number]) [address], [address] [place] [address] COMPREHENSIVE METABOLIC PANE Phu 12-19-2023 Albumin [Mass/Vol] 3.4 g/dL Normal 3.2-5.3 [facility] Comment on above: Performed By: #### C BCA, CMP, , 2776-04, 1987-08 #### [facility] ([id number]) [address], [address] [place] [address] ALP [Catalytic activity/Vol] 60 U/L Normal 39-130 [facility] Comment on above: Performed By: #### C BCA, CMP, , 2776-04, 1987-08 #### [facility] ([id number]) [address], [address] [place] [address] ALT [Catalytic activity/Vol] 12 U/L Normal 0-31 [facility] Comment on above: Performed By: #### C BCA, CMP, , 2776-04, 1987-08 #### [facility] ([id number]) [address], [address] [place] [address] Anion gap [Moles/Vol] 9 mmol/L Normal 5-15 [facility] Comment on above: Performed By: #### C BCA, CMP, , 2776-04, 1987-08 #### [facility] ([id number]) [address], [address] [place] [address] AST [Catalytic activity/Vol] 13 U/L Normal 0-41 [facility] Comment on above: Performed By: #### C BCA, CMP, , 2776-04, 1987-08 #### [facility] ([id number]) [address], [address] [place] [address] Bilirubin [Mass/Vol] 0.4 mg/dL Normal 0.3-1.[address] [facility] Comment on above: Performed By: #### C BCA, CMP, , 2776-04, 1987-08 #### [facility] ([id number]) [address], [address] [place] [address] Calcium [Mass/Vol] 9.5 mg/dL Normal 8.5-10.5 [facility] Comment on above: Performed By: #### C EDEL POOLE, , 2776-04, 1987-08 #### [facility] ([id number]) [address], [address] [place] [address] Chloride [Moles/Vol] 105 mmol/L Normal 98-[address] [facility] Comment on above: Performed By: #### C VIRGILIO, CMP, , 2776-04, 1987-08 #### [facility] ([id number]) [address], [address] [place] [address] CO2 [Moles/Vol] 28 mmol/L Normal 22-32 [facility] Comment on above: Performed By: #### C EDEL POOLE, , 2776-04, 1987-08 #### [facility] ([id number]) [address], [address] [place] [address] Creatinine [Mass/Vol] 1.23 mg/dL High 0.40-1.00 [facility] Comment on above: Result Comment: METH OD TRACEABLE TO IDMS STANDARD Performed By: #### C EDEL POOLE, , 2776-04, 1987-08 #### [facility] ([id number]) [address], [address] [place] [address] GFR/1.73 sq M.predicted among non-blacks MDRD (S/P/Bld) [Vol rate/Area] 51 mL/min/{1.73_m2} Low >59 [facility] Comment on above: Result Comment: Reported eGFR is based on the CKD-EPI 2020 equation that does not use a race coefficient. Performed By: #### C BCA, CMP, , 2776-04, 1987-08 #### [facility] ([id number]) [address], [address] [place] [address] Glucose [Mass/Vol] 89 mg/dL Normal 65-99 [facility] Comment on above: Performed By: #### C BCA, CMP, , 2776-04, 1987-08 #### [facility] ([id number]) [address], [address] [place] [address] Potassium [Moles/Vol] 4.9 mmol/L Normal 3.5-5.0 [facility] Comment on above: Performed By: #### C BCA, CMP, , 2776-04, 1987-08 #### [facility] ([id number]) [address], [address] [place] [address] Protein [Mass/Vol] 6.0 g/dL Normal 6.0-8.0 [facility] Comment on above: Performed By: #### C BCA, CMP, , 2776-04, 1987-08 #### [facility] ([id number]) [address], [address] [place] [address] Sodium [Moles/Vol] 142 mmol/L Normal 134-146 [facility] Comment on above: Performed By: #### C BCA, CMP, , 2776-04, 1987-08 #### [facility] ([id number]) [address], [address] [place] [address] Urea nitrogen [Mass/Vol] 21 mg/dL Normal 5-23 [facility] Comment on above: Performed By: #### C BCA, CMP, , 2776-04, 1987-08 #### [facility] ([id number]) [address], [address] [place] [address] CRP [Mass/Vol]on 12-19-2023 C REACTIVE PROTEIN 0.8 mg/dL High 0.000-0.744 [facility] Comment on above: Performed By: #### C BCA, CMP, , 2776-04, 1987-08 #### [facility] ([id number]) [address] [facility] [facility] [place] [address] ESR Photometric method (Bld) [Velocity]on 12-19-2023 ESR, ERYTHROCYTE SEDIMENTATION RATE 67 mm/h High 0-30 [facility] Comment on above: Performed By: #### C VIRGILIO, CMP, 47391-4, 2776-04, 1987-08 #### [facility] ([id number]) [address] [facility] [facility] [place] [address] Follow-Upon 12-19-2023 Follow-Up [id number] Mckeon 1965 F Date Provider Department Center 12/19/2023 215-ELIZABETH ALANIS I [facility]UST [facility]HEUM [facility] No family history on file Level of Service:80158 [place] OFFICE/OUTPATIENT ESTABLISHED LOW MDM 20 MIN (GC) Reason for Visit and Comments: Follow-up [341209] Normal [facility] Neutrophil cytoplasmic Ab pa selvin IF (S)on 12-19-2023 c-ANCA Negative Normal Negative [facility] Comment on above: Performed By: #### C VIRGILIO, CMP, 55187-0, 2776-04, 1987-08 #### [facility] ([id number]) [address], [address] [place] [address] p-ANCA Positive Abnormal Negative [facility] Comment on above: Result Comment: NOTE Positive for pANCA pattern by immunofluorescence. Suggest further testing for anti-myeloperoxidase (anti-MPO) antibodies, if clinically indicated. ADDITIONAL INFORMATION This test was developed and its performance characteristics determined by [facility] in a manner consistent with CLIA requirements. This test has not been cleared or approved by the U.S. Food and Drug Administration. Test Performed by: [facility] - [address] [address] Night Nurse: Ledy Son Ph.D.; CLIA# [id number] Performed By: #### C BCA, CMP, , 2776-04, 1987-08 #### [facility] ([id number]) [address], [address] [place] [address] CBC AND AUTO DIFFon 11-07-19 24 ABSOLUTE BASOPHIL 0.0 X10E9/L Normal 0.0-0.2 [facility] Comment on above: Performed By: #### C BCA, CMP, , 2776-04, 1987-08 #### [facility] ([id number]) [address], [address] [place] [address] ABSOLUTE NEUTROPHIL 12.2 X10E9/L High 1.5-6.6 [facility] Comment on above: Performed By: #### C BCA, CMP, , 2776-04, 1987-08 #### [facility] ([id number]) [address] [place] [address] Basophils/100 WBC (Bld) 0.2 % Normal [facility] Comment on above: Performed By: #### C BCA, CMP, , 2776-04, 1987-08 #### [facility] ([id number]) [address], [address] [place] [address] Eosinophils (Bld) [#/Vol] 0.0 10*3/uL Normal 0.0-0.4 [facility] Comment on above: Performed By: #### C BCA, CMP, , 2776-04, 1987-08 #### [facility] ([id number]) [address], [address] [place] [address] Eosinophils/100 WBC (Bld) 0.0 % Normal [facility] Comment on above: Performed By: #### C BCA, CMP, , 2776-04, 1987-08 #### [facility] ([id number]) [address] [place] [address] Erythrocyte distribution width (RBC) [Ratio] 15.6 % High 11.5-15.0 [facility] Comment on above: Performed By: #### Shahla POOLE CMP, , 2776-04, 1987-08 #### [facility] ([id number]) [address], [facility] [address] [place] [address] Hematocrit (Bld) [Volume fraction] 32.0 % Low 35-47 [facility] Comment on above: Performed By: #### Shahla POOLE CMP, , 2776-04, 1987-08 #### [facility] ([id number]) [address], [facility] [address] [place] [address] Hemoglobin (Bld) [Mass/Vol] 10.4 g/dL Low 11.7-15.5 [facility] Comment on above: Performed By: #### Shahla POOLE CMP, , 2776-04, 1987-08 #### [facility] ([id number]) [address], [facility] [address] [place] [address] Lymphocytes (Bld) [#/Vol] 0.3 10*3/uL Low 1.0-3.5 [facility] Comment on above: Performed By: #### Shahla POOLE CMP, , 2776-04, 1987-08 #### [facility] ([id number]) [address], [facility] [address] [place] [address] Lymphocytes/100 WBC (Bld) 2.6 % Normal [facility] Comment on above: Performed By: #### Shahla POOLE CMP, , 2776-04, 1987-08 #### [facility] ([id number]) [address], [facility] [address] [place] [address] MCH (RBC) [Entitic mass] 27.6 pg Normal 27-34 [facility] Comment on above: Performed By: #### Shahla POOLE CMP, , 2776-04, 1987-08 #### [facility] ([id number]) [address], [address] [place] [address] MCHC (RBC) [Mass/Vol] 32.4 g/dL Normal 32-36 [facility] Comment on above: Performed By: #### Shahla POOLE CMP, , 2776-04, 1987-08 #### [facility] ([id number]) [address], [address] [place] [address] MCV (RBC) [Entitic vol] 85 fL Normal 80-100 [facility] Comment on above: Performed By: #### Shahla POOLE CMP, , 2776-04, 1987-08 #### [facility] ([id number]) [address], [address] [place] [address] Monocytes (Bld) [#/Vol] 0.2 10*3/uL Normal 0-0.9 [facility] Comment on above: Performed By: #### Shahla POOLE CMP, , 2776-04, 1987-08 #### [facility] ([id number]) [address], [address] [place] [address] Monocytes/100 WBC (Bld) 1.8 % Normal [facility] Comment on above: Performed By: #### Shahla POOLE CMP, , 2776-04, 1987-08 #### [facility] ([id number]) [address], [address] [place] [address] Neutrophils/100 WBC (Bld) 95.4 % Normal [facility] Comment on above: Performed By: #### Shahla POOLE, CMP, , 2776-04, 1987-08 #### [facility] ([id number]) [address], [address] [place] [address] Platelet mean volume (Bld) [Entitic vol] 9.1 fL Normal 7-12 [facility] Comment on above: Performed By: #### C BCA, CMP, , 2776-04, 1987-08 #### [facility] ([id number]) [address], [address] [place] [address] Platelets (Bld) [#/Vol] 183 10*3/uL Normal 150-450 [facility] Comment on above: Performed By: #### C BCA, CMP, , 2776-04, 1987-08 #### [facility] ([id number]) [address], [address] [place] [address] RBC COUNT 3.76 X10E12/L Low 3.80-5.20 [facility] Comment on above: Performed By: #### C BCA, CMP, , 2776-04, 1987-08 #### [facility] ([id number]) [address], [address] [place] [address] WBC (Bld) [#/Vol] 12.8 10*3/uL High 4.0-11.0 [facility] Comment on above: Performed By: #### C BCA, CMP, , 2776-04, 1987-08 #### [facility] ([id number]) [address], [address] [place] [address] COMPREHENSIVE METABOLIC PANE Phu 11-07-2023 Albumin [Mass/Vol] 3.5 g/dL Normal 3.2-5.3 [facility] Comment on above: Performed By: #### C BCA, CMP, , 2776-04, 1987-08 #### [facility] ([id number]) [address], [address] [place] [address] ALP [Catalytic activity/Vol] 46 U/L Normal 39-130 [facility] Comment on above: Performed By: #### C BCA, CMP, , 2776-04, 1987-08 #### [facility] ([id number]) [address], [address] [place] [address] ALT [Catalytic activity/Vol] 31 U/L Normal 0-31 [facility] Comment on above: Performed By: #### C BCA, CMP, , 2776-04, 1987-08 #### [facility] ([id number]) [address], [address] [place] [address] Anion gap [Moles/Vol] 9 mmol/L Normal 5-15 [facility] Comment on above: Performed By: #### C BCA, CMP, , 2776-04, 1987-08 #### [facility] ([id number]) [address], [address] [place] [address] AST [Catalytic activity/Vol] 10 U/L Normal 0-41 [facility] Comment on above: Performed By: #### C BCA, CMP, , 2776-04, 1987-08 #### [facility] ([id number]) [address], [address] [place] [address] Bilirubin [Mass/Vol] 0.5 mg/dL Normal 0.3-1.[address] [facility] Comment on above: Performed By: #### C BCA, CMP, , 2776-04, 1987-08 #### [facility] ([id number]) [address], [address] [place] [address] Calcium [Mass/Vol] 9.1 mg/dL Normal 8.5-10.5 [facility] Comment on above: Performed By: #### C BCA, CMP, , 2776-04, 1987-08 #### [facility] ([id number]) [address], [address] [place] [address] Chloride [Moles/Vol] 104 mmol/L Normal 98-[address] [facility] Comment on above: Performed By: #### C BCA, CMP, , 2776-04, 1987-08 #### [facility] ([id number]) [address], [address] [place] [address] CO2 [Moles/Vol] 26 mmol/L Normal 22-32 [facility] Comment on above: Performed By: #### C EDEL POOLE, , 2776-04, 1987-08 #### [facility] ([id number]) [address], [address] [place] [address] Creatinine [Mass/Vol] 1.60 mg/dL High 0.40-1.00 [facility] Comment on above: Result Comment: METH OD TRACEABLE TO IDMS STANDARD Performed By: #### C EDEL POOLE, , 2776-04, 1987-08 #### [facility] ([id number]) [address], [address] [place] [address] GFR/1.73 sq M.predicted among non-blacks MDRD (S/P/Bld) [Vol rate/Area] 37 mL/min/{1.73_m2} Low >59 [facility] Comment on above: Result Comment: Reported eGFR is based on the CKD-EPI 2020 equation that does not use a race coefficient. Performed By: #### C EDEL POOLE, , 2776-04, 1987-08 #### [facility] ([id number]) [address], [address] [place] [address] Glucose [Mass/Vol] 119 mg/dL High 65-99 [facility] Comment on above: Performed By: #### C EDEL POOLE, , 2776-04, 1987-08 #### [facility] ([id number]) [address], [address] [place] [address] Potassium [Moles/Vol] 5.2 mmol/L High 3.5-5.0 [facility] Comment on above: Performed By: #### C EDEL POOLE, , 2776-04, 1987-08 #### [facility] ([id number]) [address], [address] [place] [address] Protein [Mass/Vol] 5.3 g/dL Low 6.0-8.0 [facility] Comment on above: Performed By: #### C BCA, CMP, 18250-9, 2776-04, 1987-08 #### [facility] ([id number]) [address], [address] [place] [address] Sodium [Moles/Vol] 139 mmol/L Normal 134-146 [facility] Comment on above: Performed By: #### C BCA, CMP, , 2776-04, 1987-08 #### [facility] ([id number]) [address], [address] [place] [address] Urea nitrogen [Mass/Vol] 52 mg/dL High 5-23 [facility] Comment on above: Performed By: #### C BCA, CMP, , 2776-04, 1987-08 #### [facility] ([id number]) [address], [address] [place] [address] Follow-Upon 11-07-2023 Follow-Up [id number] Mckeon 1965 F Date Provider Department Center 11/07/2023 1233-SANCHEZ BLACKMAN RHEUM RUST No family history on file Level of Service:26772 [place] OFFICE/OUTPATIENT ESTABLISHED MOD MDM 30 MIN (GC) Reason for Visit and Comments: Follow-up [616847] - TTh follow up Concerns: States was told to due TB test; no further concerns Normal [facility] M. tuberculosis stim IFN-g p tiffanie (Bld)on 11-07-2023 Mitogen minus Nil Result 0.07 IU/mL Normal [facility] Nil Result 0.01 IU/mL Normal [facility] Comment on above: Result Comment: NOTE Test Performed by: [facility] [place] [facility] [place] [address] [place] [address] Night Nurse: Ledy Son Ph.D.; CLIA# [id number] QuantiFERON-Tb Gold Plus Result Indeterminate Abnormal Negative [facility] Comment on above: Result Comment: NOTE Indeterminate due to a low interferon-gamma level in the mitogen (positive control) tube. This may occur due to a low lymphocyte count, reduced lymphocyte activity or inability of the patient's lymphocytes to generate interferon-gamma. The reference range for the 'Mitogen minus Nil Result' is >=0.5 IU/mL. TB1 Ag minus Nil Result 0.00 IU/mL Normal [facility] TB2 Ag minus Nil Result 0.00 IU/mL Normal [facility] Orders Onlyon 11-06-2023 Orders Only [id number] Dov,Ter ri L 1965 F Date Provider Department [place] 11/06/2023 190-ROGER WRAY [facility] INF [facility] No family history on file Normal [facility] Orders Only [id number] Dov,Ter ri L 1965 F Date [facility] Department [place] 11/06/2023 215-[place], [place] [facility] No family history on file Normal [facility] Orders Only [id number] Dov,Ter ri L 1965 F Date Provider Department [place] 11/06/2023 1644-MORTEZA STORY [facility] INF [facility] No family history on file Normal [facility] BASIC METABOLIC PANLon 11-01 Anion gap [Moles/Vol] 9 mmol/L Normal -15 [facility] Comment on above: Performed By: #### 8 9579-7 #### [facility] ([id number]) [address] [place] [address]6414 Calcium [Mass/Vol] 8.5 mg/dL Normal 8.5-10.5 [place] Comment on above: Performed By: #### 8 9579-7 #### [facility] ([id number]) [address] [place] [address] 47164 Chloride [Moles/Vol] 108 mmol/L Normal 98-109 [facility] Comment on above: Performed By: #### 8 9579-7 #### [facility] ([id number]) [address] [place] [address] 77033 CO2 [Moles/Vol] 24 mmol/L Normal 22-32 [facility] Comment on above: Performed By: #### 8 9579-7 #### [facility] ([id number]) [address] [place] [address] 98385 Creatinine [Mass/Vol] 1.59 mg/dL High 0.40-1.00 [facility] Comment on above: Result Comment: METH OD TRACEABLE TO IDMS STANDARD Performed By: #### 8 9579-7 #### [facility] ([id number]) [address] [place] [address] 79377 GFR/1.73 sq M.predicted among non-blacks MDRD (S/P/Bld) [Vol rate/Area] 37 mL/min/{1.73_m2} Low >59 [facility] Comment on above: Result Comment: Reported eGFR is based on the CKD-EPI 2020 equation that does not use a race coefficient. Performed By: #### 8 9579-7 #### [facility] ([id number]) [address] [place] [address] 32369 Glucose [Mass/Vol] 109 mg/dL High 65-99 [place] Comment on above: Performed By: #### 8 9579-7 #### [facility] ([id number]) [address] [place] [address] 98884 Potassium [Moles/Vol] 3.9 mmol/L Normal 3.5-5.0 [facility] Comment on above: Performed By: #### 8 9579-7 #### [facility] [facility] ([id number]) [address], [place] [address] Sodium [Moles/Vol] 141 mmol/L Normal 134-146 [place] Comment on above: Performed By: #### 8 9579-7 #### [facility] ([id number]) [address] [facility], [place] [address] Urea nitrogen [Mass/Vol] 40 mg/dL High 5-23 [facility] Comment on above: Performed By: #### 8 9579-7 #### [facility] ([id number]) [address] [facility], [place] [address] Orders Onlyon 11-01-2023 Orders Only [id number] Silva ri L 1965 F Date Provider Department [place] 11/01/2023 MORTEZA JEFFRIES IN[facility] No family history on file [facility] Orders Onlyon 10-27-2023 Orders Only [id number] Nelson 1965 F Date Provider Department [place] 10/27/2023 RASHAAD LANDEROS[facility] No family history on file [facility] 36on 10-25-2023 36 Called, left message for patient to call and make an appointment. Normal [facility] 36 Patient was seen by inpatient rheumatology service with Dr. 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 Staff to kindly call patient to set up an appointment with Dr. Rashaad Apodaca with Dr. Alanis at [facility]. Patient phone number in [facility] chart H: [phone] C: [phone] Patient's address may have also changed. Normal [facility] CBC AND AUTO DIFFon 10-25-19 24 ABSOLUTE BASOPHIL 0.1 X10E9/L Normal 0.0-0.2 [facility] Comment on above: Performed By: #### C BCA, CMP, 37002-3, 2777-1, 1987- #### [facility] ([id number]) [address], [address] [place] [address] ABSOLUTE NEUTROPHIL 6.5 X10E9/L Normal 1.5-6.[address] [facility] Comment on above: Performed By: #### C BCA, CMP, , 2776-04, 1987-08 #### [facility] ([id number]) [address], [address] [place] [address] Basophils/100 WBC (Bld) 0.6 % Normal [facility] Comment on above: Performed By: #### C VIRGILIO, CMP, , 2776-04, 1987-08 #### [facility] ([id number]) [address], [address] [place] [address] Eosinophils (Bld) [#/Vol] 0.0 10*3/uL Normal 0.0-0.4 [facility] Comment on above: Performed By: #### Shahla BCA, CMP, , 2776-04, 1987-08 #### [facility] ([id number]) [address], [address] [place] [address] Eosinophils/100 WBC (Bld) 0.4 % Normal [facility] Comment on above: Performed By: #### Shahla POOLE, CMP, , 2776-04, 1987-08 #### [facility] ([id number]) [address], [address] [place] [address] Erythrocyte distribution width (RBC) [Ratio] 14.5 % Normal 11.5-15.0 [facility] Comment on above: Performed By: #### C BCA, CMP, , 2776-04, 1987-08 #### [facility] ([id number]) [address], [address] [place] [address] Hematocrit (Bld) [Volume fraction] 30.5 % Low 35-47 [facility] Comment on above: Performed By: #### C BCA, CMP, , 2776-04, 1987-08 #### [facility] ([id number]) [address], [address] [place] [address] Hemoglobin (Bld) [Mass/Vol] 10.5 g/dL Low 11.7-15.5 [facility] Comment on above: Performed By: #### Shahla POOLE, CMP, , 2776-04, 1987-08 #### [facility] ([id number]) [address], [address] [place] [address] Lymphocytes (Bld) [#/Vol] 1.4 10*3/uL Normal 1.0-3.5 [facility] Comment on above: Performed By: #### Shahla POOLE, CMP, , 2776-04, 1987-08 #### [facility] ([id number]) [address], [facility] [address] [place] [address] Lymphocytes/100 WBC (Bld) 16.2 % Normal [facility] Comment on above: Performed By: #### Shahla POOLE, CMP, , 2776-04, 1987-08 #### [facility] ([id number]) [address], [address] [place] [address] MCH (RBC) [Entitic mass] 28.5 pg Normal 27-34 [facility] Comment on above: Performed By: #### Shahla BCA, CMP, , 2776-04, 1987-08 #### [facility] ([id number]) [address], [address] [place] [address] MCHC (RBC) [Mass/Vol] 34.4 g/dL Normal 32-36 [facility] Comment on above: Performed By: #### Shahla BCA, CMP, , 2776-04, 1987-08 #### [facility] ([id number]) [address], [address] [place] [address] MCV (RBC) [Entitic vol] 83 fL Normal 80-100 [facility] Comment on above: Performed By: #### Shahla BCA, CMP, , 2776-04, 1987-08 #### [facility] ([id number]) [address], [address] [place] [address] Monocytes (Bld) [#/Vol] 0.5 10*3/uL Normal 0-0.9 [facility] Comment on above: Performed By: #### Shahla BCA, CMP, , 2776-04, 1987-08 #### [facility] ([id number]) [address], [address] [place] [address] Monocytes/100 WBC (Bld) 5.9 % Normal [facility] Comment on above: Performed By: #### Shahla BCA, CMP, , 2776-04, 1987-08 #### [facility] ([id number]) [address], [address] [place] [address] Neutrophils/100 WBC (Bld) 76.9 % Normal [facility] Comment on above: Performed By: #### Shahla BCA, CMP, , 2776-04, 1987-08 #### [facility] ([id number]) [address], [address] [place] [address] Platelet mean volume (Bld) [Entitic vol] 9.1 fL Normal 7-12 [facility] Comment on above: Performed By: #### Shahla BCA, CMP, , 2776-04, 1987-08 #### [facility] ([id number]) [address], [address] [place] [address] Platelets (Bld) [#/Vol] 248 10*3/uL Normal 150-450 [facility] Comment on above: Performed By: #### Shahla BCA, CMP, , 2776-04, 1987-08 #### [facility] ([id number]) [address], [address] [place] [address] RBC COUNT 3.68 X10E12/L Low 3.80-5.20 [facility] Comment on above: Performed By: #### C BCA, CMP, , 2776-04, 1987-08 #### [facility] ([id number]) [address], [address] [place] [address] RBC morphology finding Nom (Bld) REVIEWED Normal [facility] Comment on above: Performed By: #### C BCA, CMP, , 2776-04, 1987-08 #### [facility] ([id number]) [address], [address] [place] [address] WBC (Bld) [#/Vol] 8.4 10*3/uL Normal 4.0-11.0 [facility] Comment on above: Performed By: #### C BCA, CMP, , 2776-04, 1987-08 #### [facility] ([id number]) [address], [address] [place] [address] COMPREHENSIVE METABOLIC PANE Phu 10-25-2023 Albumin [Mass/Vol] 3.1 g/dL Low 3.2-5.3 [facility] Comment on above: Performed By: #### C BCA, CMP, , 2776-04, 1987-08 #### [facility] ([id number]) [address], [address] [place] [address] ALP [Catalytic activity/Vol] 35 U/L Low 39-130 [facility] Comment on above: Performed By: #### C BCA, CMP, , 2776-04, 1987-08 #### [facility] ([id number]) [address], [address] [place] [address] ALT [Catalytic activity/Vol] 8 U/L Normal 0-31 [facility] Comment on above: Performed By: #### C BCA, CMP, , 2776-04, 1987-08 #### [facility] ([id number]) [address], [address] [place] [address] Anion gap [Moles/Vol] 9 mmol/L Normal 5-15 [facility] Comment on above: Performed By: #### C BCA, CMP, , 2776-04, 1987-08 #### [facility] ([id number]) [address], [address] [place] [address] AST [Catalytic activity/Vol] 10 U/L Normal 0-41 [facility] Comment on above: Performed By: #### C BCA, CMP, , 2776-04, 1987-08 #### [facility] ([id number]) [address] [place] [address] Bilirubin [Mass/Vol] 0.3 mg/dL Normal 0.3-1.[address] [facility] Comment on above: Performed By: #### C BCA, CMP, , 2776-04, 1987-08 #### [facility] ([id number]) [address] [place] [address] Calcium [Mass/Vol] 8.6 mg/dL Normal 8.5-10.5 [facility] Comment on above: Performed By: #### C BCA, CMP, , 2776-04, 1987-08 #### [facility] ([id number]) [address], [address] [place] [address] Chloride [Moles/Vol] 106 mmol/L Normal 98-[address] [facility] Comment on above: Performed By: #### C BCA, CMP, , 2776-04, 1987-08 #### [facility] ([id number]) [address], [address] [place] [address] CO2 [Moles/Vol] 25 mmol/L Normal 22-32 [facility] Comment on above: Performed By: #### C EDEL POOLE, , 2776-04, 1987-08 #### [facility] ([id number]) [address], [address] [place] [address] Creatinine [Mass/Vol] 2.12 mg/dL High 0.40-1.00 [facility] Comment on above: Result Comment: METH OD TRACEABLE TO IDMS STANDARD Performed By: #### C EDEL POOLE, , 2776-04, 1987-08 #### [facility] ([id number]) [address], [facility] [address] [place] [address] GFR/1.73 sq M.predicted among non-blacks MDRD (S/P/Bld) [Vol rate/Area] 26 mL/min/{1.73_m2} Low >59 [facility] Comment on above: Result Comment: Reported eGFR is based on the CKD-EPI 2020 equation that does not use a race coefficient. Performed By: #### C EDEL POOLE, , 2776-04, 1987-08 #### [facility] ([id number]) [address] [place] [address] Glucose [Mass/Vol] 81 mg/dL Normal 65-99 [facility] Comment on above: Performed By: #### C EDEL POOLE, , 2776-04, 1987-08 #### [facility] ([id number]) [address] [place] [address] Potassium [Moles/Vol] 4.1 mmol/L Normal 3.5-5.0 [facility] Comment on above: Performed By: #### C VIRGILIO CMP, , 2776-04, 1987-08 #### [facility] ([id number]) [address], [address] [place] [address] Protein [Mass/Vol] 4.9 g/dL Low 6.0-8.0 [facility] Comment on above: Performed By: #### C EDEL POOLE, , 2776-04, 1987-08 #### [facility] ([id number]) [address], [address] [place] [address] Sodium [Moles/Vol] 140 mmol/L Normal 134-146 [facility] Comment on above: Performed By: #### C EDEL POOLE, , 2776-04, 1987-08 #### [facility] ([id number]) [address] [place] [address] Urea nitrogen [Mass/Vol] 58 mg/dL High 5-23 [facility] Comment on above: Performed By: #### C EDEL POOLE, , 2776-04, 1987-08 #### [facility] ([id number]) [address] [place] [address] Calcium.ionized (Bld) [Mass/ Vol]on 10-25-2023 IONIZED CALCIUM 4.8 mg/dL Normal 4.5-5.3 [facility] Comment on above: Performed By: #### C VIRGILIO CMP, , 2776-04, 1987-08 #### [facility] ([id number]) [address], [address] [place] [address] MAGNESIUMon 10-25-2023 Magnesium [Mass/Vol] 2.1 mg/dL Normal 1.8-2.[address] [facility] Comment on above: Performed By: #### C VIRGILIO CMP, , 2776-04, 1987-08 #### [facility] ([id number]) [address], [address] [place] [address] PHOSPHORUSon 10-25-2023 Phosphate [Mass/Vol] 3.5 mg/dL Normal 2.4-4.[address] [facility] Comment on above: Performed By: #### C VIRGILIO, CMP, , 2776-04, 1987-08 #### [facility] ([id number]) [address], [address] [place] [address] CBC AND AUTO DIFFon 10-24-19 24 ABSOLUTE BASOPHIL 0.0 X10E9/L Normal 0.0-0.2 [facility] Comment on above: Performed By: #### C BCA, CMP, , 2776-04, 1987-08 #### [facility] ([id number]) [address] [place] [address] ABSOLUTE NEUTROPHIL 7.2 X10E9/L High 1.5-6.[address] [facility] Comment on above: Performed By: #### C BCA, CMP, , 2776-04, 1987-08 #### [facility] ([id number]) [address] [place] [address] Basophils/100 WBC (Bld) 0.1 % Normal [facility] Comment on above: Performed By: #### Shahla BCA, CMP, , 2776-04, 1987-08 #### [facility] ([id number]) [address] [place] [address] Eosinophils (Bld) [#/Vol] 0.0 10*3/uL Normal 0.0-0.4 [facility] Comment on above: Performed By: #### C BCA, CMP, , 2776-04, 1987-08 #### [facility] ([id number]) [address] [place] [address] Eosinophils/100 WBC (Bld) 0.2 % Normal [facility] Comment on above: Performed By: #### C BCA, CMP, , 2776-04, 1987-08 #### [facility] ([id number]) [address], [address] [place] [address] Erythrocyte distribution width (RBC) [Ratio] 14.7 % Normal 11.5-15.0 [facility] Comment on above: Performed By: #### Shahla POOLE CMP, , 2776-04, 1987-08 #### [facility] ([id number]) [address], [facility] [address] [place] [address] Hematocrit (Bld) [Volume fraction] 31.4 % Low 35-47 [facility] Comment on above: Performed By: #### Shahla POOLE CMP, , 2776-04, 1987-08 #### [facility] ([id number]) [address], [facility] [address] [place] [address] Hemoglobin (Bld) [Mass/Vol] 10.5 g/dL Low 11.7-15.5 [facility] Comment on above: Performed By: #### Shahla POOLE CMP, , 2776-04, 1987-08 #### [facility] ([id number]) [address] [address] [place] [address] Lymphocytes (Bld) [#/Vol] 3.1 10*3/uL Normal 1.0-3.5 [facility] Comment on above: Performed By: #### Shahla POOLE CMP, , 2776-04, 1987-08 #### [facility] ([id number]) [address] [address] [place] [address] Lymphocytes/100 WBC (Bld) 27.5 % Normal [facility] Comment on above: Performed By: #### Shahla POOLE CMP, , 2776-04, 1987-08 #### [facility] ([id number]) [address] [address] [place] [address] MCH (RBC) [Entitic mass] 28.1 pg Normal 27-34 [facility] Comment on above: Performed By: #### Shahla POOLE CMP, , 2776-04, 1987-08 #### [facility] ([id number]) [address], [address] [place] [address] MCHC (RBC) [Mass/Vol] 33.3 g/dL Normal 32-36 [facility] Comment on above: Performed By: #### Shahla POOLE, CMP, , 2776-04, 1987-08 #### [facility] ([id number]) [address], [address] [place] [address] MCV (RBC) [Entitic vol] 84 fL Normal 80-100 [facility] Comment on above: Performed By: #### Shahla POOLE, CMP, , 2776-04, 1987-08 #### [facility] ([id number]) [address], [address] [place] [address] Monocytes (Bld) [#/Vol] 0.8 10*3/uL Normal 0-0.9 [facility] Comment on above: Performed By: #### Shahla POOLE, [facility], , 2776-04, 1987-08 #### [facility] ([id number]) [address], [address] [place] [address] Monocytes/100 WBC (Bld) 7.6 % Normal [facility] Comment on above: Performed By: #### Shahla POOLE, CMP, , 2776-04, 1987-08 #### [facility] ([id number]) [address], [address] [place] [address] Neutrophils/100 WBC (Bld) 64.6 % Normal [facility] Comment on above: Performed By: #### Shahla BCA, CMP, , 2776-04, 1987-08 #### [facility] ([id number]) [address], [address] [place] [address] Platelet mean volume (Bld) [Entitic vol] 9.6 fL Normal 7-12 [facility] Comment on above: Performed By: #### C BCA, CMP, , 2776-04, 1987-08 #### [facility] ([id number]) [address], [address] [place] [address] Platelets (Bld) [#/Vol] 304 10*3/uL Normal 150-450 [facility] Comment on above: Performed By: #### C BCA, CMP, , 2776-04, 1987-08 #### [facility] ([id number]) [address], [address] [place] [address] RBC COUNT 3.73 X10E12/L Low 3.80-5.20 [facility] Comment on above: Performed By: #### C BCA, CMP, , 2776-04, 1987-08 #### [facility] ([id number]) [address], [address] [place] [address] WBC (Bld) [#/Vol] 11.2 10*3/uL High 4.0-11.0 [facility] Comment on above: Performed By: #### C BCA, CMP, , 2776-04, 1987-08 #### [facility] ([id number]) [address], [address] [place] [address] COMPREHENSIVE METABOLIC PANE Phu 10-24-2023 Albumin [Mass/Vol] 3.2 g/dL Normal 3.2-5.3 [facility] Comment on above: Performed By: #### C BCA, CMP, , 2776-04, 1987-08 #### [facility] ([id number]) [address], [address] [place] [address] ALP [Catalytic activity/Vol] 37 U/L Low 39-130 [facility] Comment on above: Performed By: #### C BCA, CMP, , 2776-04, 1987-08 #### [facility] ([id number]) [address], [address] [place] [address] ALT [Catalytic activity/Vol] 8 U/L Normal 0-31 [facility] Comment on above: Performed By: #### C BCA, CMP, , 2776-04, 1987-08 #### [facility] ([id number]) [address], [address] [place] [address] Anion gap [Moles/Vol] 11 mmol/L Normal 5-15 [facility] Comment on above: Performed By: #### C BCA, CMP, , 2776-04, 1987-08 #### [facility] ([id number]) [address], [address] [place] [address] AST [Catalytic activity/Vol] 9 U/L Normal 0-41 [facility] Comment on above: Performed By: #### C BCA, CMP, , 2776-04, 1987-08 #### [facility] ([id number]) [address], [address] [place] [address] Bilirubin [Mass/Vol] 0.3 mg/dL Normal 0.3-1.[address] [facility] Comment on above: Performed By: #### C BCA, CMP, , 2776-04, 1987-08 #### [facility] ([id number]) [address] [place] [address] Calcium [Mass/Vol] 8.7 mg/dL Normal 8.5-10.5 [facility] Comment on above: Performed By: #### C BCA, CMP, , 2776-04, 1987-08 #### [facility] ([id number]) [address], [address] [place] [address] Chloride [Moles/Vol] 103 mmol/L Normal 98-[address] [facility] Comment on above: Performed By: #### C BCA, CMP, , 2776-04, 1987-08 #### [facility] ([id number]) [address], [address] [place] [address] CO2 [Moles/Vol] 26 mmol/L Normal 22-32 [facility] Comment on above: Performed By: #### C VIRGILIO CMP, , 2776-04, 1987-08 #### [facility] ([id number]) [address], [address] [place] [address] Creatinine [Mass/Vol] 2.33 mg/dL High 0.40-1.00 [facility] Comment on above: Result Comment: METH OD TRACEABLE TO IDMS STANDARD Performed By: #### C EDEL POOLE, , 2776-04, 1987-08 #### [facility] ([id number]) [address] [place] [address] GFR/1.73 sq M.predicted among non-blacks MDRD (S/P/Bld) [Vol rate/Area] 24 mL/min/{1.73_m2} Low >59 [facility] Comment on above: Result Comment: Reported eGFR is based on the CKD-EPI 2020 equation that does not use a race coefficient. Performed By: #### C EDEL POOLE, , 2776-04, 1987-08 #### [facility] ([id number]) [address] [place] [address] Glucose [Mass/Vol] 80 mg/dL Normal 65-99 [facility] Comment on above: Performed By: #### C EDEL POOLE, , 2776-04, 1987-08 #### [facility] ([id number]) [address] [place] [address] Potassium [Moles/Vol] 3.9 mmol/L Normal 3.5-5.0 [facility] Comment on above: Performed By: #### C EDEL POOLE, , 2776-04, 1987-08 #### [facility] ([id number]) [address], [address] [place] [address] Protein [Mass/Vol] 5.1 g/dL Low 6.0-8.0 [facility] Comment on above: Performed By: #### C BCA, CMP, , 2776-04, 1987-08 #### [facility] ([id number]) [address] [place] [address] Sodium [Moles/Vol] 140 mmol/L Normal 134-146 [facility] Comment on above: Performed By: #### C BCA, CMP, , 2776-04, 1987-08 #### [facility] ([id number]) [address] [place] [address] Urea nitrogen [Mass/Vol] 67 mg/dL High 5-23 [facility] Comment on above: Performed By: #### C BCA, CMP, , 2776-04, 1987-08 #### [facility] ([id number]) [address] [place] [address] Calcium.ionized (Bld) [Mass/ Vol]on 10-24-2023 IONIZED CALCIUM 4.7 mg/dL Normal 4.5-5.3 [facility] Comment on above: Performed By: #### C BCA, CMP, , 2776-04, 1987-08 #### [facility] ([id number]) [address], [address] [place] [address] HBV core Ab IA Qlon 10-24-19 24 ANTI HBc Negative Normal NEG [facility] Comment on above: Performed By: #### C BCA, CMP, , 2776-04, 1987-08 #### [facility] ([id number]) [address], [address] [place] [address] HBV surface Ag IA Qlon 10-23 HEPATITIS B SURF AG Negative Normal NEG [facility] Comment on above: Performed By: #### C EDEL POOLE, , 2776-04, 1987-08 #### [facility] ([id number]) [address], [address] [place] [address] MAGNESIUMon 10-24-2023 Magnesium [Mass/Vol] 2.2 mg/dL Normal 1.8-2.[address] [facility] Comment on above: Performed By: #### C EDEL POOLE, , 2776-04, 1987-08 #### [facility] ([id number]) [address] [place] [address] PHOSPHORUSon 10-24-2023 Phosphate [Mass/Vol] 3.4 mg/dL Normal 2.4-4.[address] [facility] Comment on above: Performed By: #### Shahla POOLE CMP, , 2776-04, 1987-08 #### [facility] ([id number]) [address], [address] [place] [address] CBC AND AUTO DIFFon 10-23-19 24 Band form neutrophils/100 WBC (Bld) 2.0 % Normal [facility] Comment on above: Performed By: #### Shahla POOLE CMP, , 2776-04, 1987-08 #### [facility] ([id number]) [address], [address] [place] [address] Erythrocyte distribution width (RBC) [Ratio] 14.6 % Normal 11.5-15.0 [facility] Comment on above: Performed By: #### Shahla POOLE CMP, , 2776-04, 1987-08 #### [facility] ([id number]) [address], [address] [place] [address] Hematocrit (Bld) [Volume fraction] 31.6 % Low 35-47 [facility] Comment on above: Performed By: #### C BCA, CMP, , 2776-04, 1987-08 #### [facility] ([id number]) [address], [address] [place] [address] Hemoglobin (Bld) [Mass/Vol] 10.5 g/dL Low 11.7-15.5 [facility] Comment on above: Performed By: #### C BCA, CMP, , 2776-04, 1987-08 #### [facility] ([id number]) [address], [address] [place] [address] Lymphocytes (Bld) [#/Vol] 2.0 10*3/uL Normal 1.0-3.5 [facility] Comment on above: Performed By: #### Shahla POOLE, CMP, , 2776-04, 1987-08 #### [facility] ([id number]) [address] [place] [address] Lymphocytes/100 WBC (Bld) 21.0 % Normal [facility] Comment on above: Performed By: #### Shahla POOLE, CMP, , 2776-04, 1987-08 #### [facility] ([id number]) [address] [place] [address] MCH (RBC) [Entitic mass] 28.2 pg Normal 27-34 [facility] Comment on above: Performed By: #### C BCA, CMP, , 2776-04, 1987-08 #### [facility] ([id number]) [address], [address] [place] [address] MCHC (RBC) [Mass/Vol] 33.3 g/dL Normal 32-36 [facility] Comment on above: Performed By: #### C BCA, CMP, , 2776-04, 1987-08 #### [facility] ([id number]) [address], [address] [place] [address] MCV (RBC) [Entitic vol] 85 fL Normal 80-100 [facility] Comment on above: Performed By: #### Shahla POOLE CMP, , 2776-04, 1987-08 #### [facility] ([id number]) [address], [address] [place] [address] Monocytes (Bld) [#/Vol] 1.8 10*3/uL High 0-0.9 [facility] Comment on above: Performed By: #### Shahla POOLE CMP, , 2776-04, 1987-08 #### [facility] ([id number]) [address] [place] [address] Monocytes/100 WBC (Bld) 19.0 % Normal [facility] Comment on above: Performed By: #### Shahla POOLE CMP, , 2776-04, 1987-08 #### [facility] ([id number]) [address], [address] [place] [address] Neutrophils (Bld) [#/Vol] 5.8 10*3/uL Normal 1.5-6.6 [facility] Comment on above: Performed By: #### Shahla POOLE CMP, , 2776-04, 1987-08 #### [facility] ([id number]) [address], [address] [place] [address] Platelet mean volume (Bld) [Entitic vol] 9.3 fL Normal 7-12 [facility] Comment on above: Performed By: #### Shahla POOLE, CMP, , 2776-04, 1987-08 #### [facility] ([id number]) [address], [address] [place] [address] Platelets (Bld) [#/Vol] 297 10*3/uL Normal 150-450 [facility] Comment on above: Performed By: #### Shahla BCA, CMP, , 2776-04, 1987-08 #### [facility] ([id number]) [address], [address] [place] [address] RBC COUNT 3.73 X10E12/L Low 3.80-5.20 [facility] Comment on above: Performed By: #### C BCA, CMP, , 2776-04, 1987-08 #### [facility] ([id number]) [address], [address] [place] [address] RBC morphology finding Nom (Bld) NORMAL Normal [facility] Comment on above: Performed By: #### C BCA, CMP, , 2776-04, 1987-08 #### [facility] ([id number]) [address], [address] [address] SEG NEUTROPHIL 58.0 % Normal [facility] Comment on above: Performed By: #### C BCA, CMP, , 2776-04, 1987-08 #### [facility] ([id number]) [address], [address] [place] [address] WBC (Bld) [#/Vol] 9.6 10*3/uL Normal 4.0-11.0 [facility] Comment on above: Performed By: #### C BCA, CMP, , 2776-04, 1987-08 #### [facility] ([id number]) [address], [address] [place] [address] COMPREHENSIVE METABOLIC PANE Phu 10-23-2023 Albumin [Mass/Vol] 3.2 g/dL Normal 3.2-5.3 [facility] Comment on above: Performed By: #### C BCA, CMP, , 2776-04, 1987-08 #### [facility] ([id number]) [address], [address] [place] [address] ALP [Catalytic activity/Vol] 38 U/L Low 39-130 [facility] Comment on above: Performed By: #### C BCA, CMP, , 2776-04, 1987-08 #### [facility] ([id number]) [address], [address] [place] [address] ALT [Catalytic activity/Vol] 10 U/L Normal 0-31 [facility] Comment on above: Performed By: #### C BCA, CMP, , 2776-04, 1987-08 #### [facility] ([id number]) [address], [address] [place] [address] Anion gap [Moles/Vol] 9 mmol/L Normal 5-15 [facility] Comment on above: Performed By: #### C BCA, CMP, , 2776-04, 1987-08 #### [facility] ([id number]) [address], [address] [place] [address] AST [Catalytic activity/Vol] 10 U/L Normal 0-41 [facility] Comment on above: Performed By: #### C BCA, CMP, , 2776-04, 1987-08 #### [facility] ([id number]) [address], [address] [place] [address] Bilirubin [Mass/Vol] 0.3 mg/dL Normal 0.3-1.[address] [facility] Comment on above: Performed By: #### C BCA, CMP, , 2776-04, 1987-08 #### [facility] ([id number]) [address], [address] [place] [address] Calcium [Mass/Vol] 8.7 mg/dL Normal 8.5-10.5 [facility] Comment on above: Performed By: #### C BCA, CMP, , 2776-04, 1987-08 #### [facility] ([id number]) [address], [address] [place] [address] Chloride [Moles/Vol] 102 mmol/L Normal 98-[address] [facility] Comment on above: Performed By: #### C BCA, CMP, , 2776-04, 1987-08 #### [facility] ([id number]) [address], [address] [place] [address] CO2 [Moles/Vol] 29 mmol/L Normal 22-32 [facility] Comment on above: Performed By: #### C BCA, CMP, , 2776-04, 1987-08 #### [facility] ([id number]) [address], [address] [place] [address] Creatinine [Mass/Vol] 2.68 mg/dL High 0.40-1.00 [facility] Comment on above: Result Comment: METH OD TRACEABLE TO IDMS STANDARD Performed By: #### C BCA, CMP, , 2776-04, 1987-08 #### [facility] ([id number]) [address], [address] [place] [address] GFR/1.73 sq M.predicted among non-blacks MDRD (S/P/Bld) [Vol rate/Area] 20 mL/min/{1.73_m2} Low >59 [facility] Comment on above: Result Comment: Reported eGFR is based on the CKD-EPI 2020 equation that does not use a race coefficient. Performed By: #### C BCA, CMP, , 2776-04, 1987-08 #### [facility] ([id number]) [address], [address] [place] [address] Glucose [Mass/Vol] 86 mg/dL Normal 65-99 [facility] Comment on above: Performed By: #### C BCA, CMP, , 2776-04, 1987-08 #### [facility] ([id number]) [address], [address] [place] [address] Potassium [Moles/Vol] 3.7 mmol/L Normal 3.5-5.0 [facility] Comment on above: Performed By: #### C VIRGILIO CMP, , 2776-04, 1987-08 #### [facility] ([id number]) [address], [address] [place] [address] Protein [Mass/Vol] 5.2 g/dL Low 6.0-8.0 [facility] Comment on above: Performed By: #### C VIRGILIO CMP, , 2776-04, 1987-08 #### [facility] ([id number]) [address], [address] [place] [address] Sodium [Moles/Vol] 140 mmol/L Normal 134-146 [facility] Comment on above: Performed By: #### Shahla POOLE [facility], , 2776-04, 1987-08 #### [facility] ([id number]) [address], [address] [place] [address] Urea nitrogen [Mass/Vol] 72 mg/dL High 5-23 [facility] Comment on above: Performed By: #### Shahla POOLE CMP, , 2776-04, 1987-08 #### [facility] ([id number]) [address], [address] [place] [address] Calcium.ionized (Bld) [Mass/ Vol]on 10-23-2023 IONIZED CALCIUM 4.8 mg/dL Normal 4.5-5.3 [facility] Comment on above: Performed By: #### Shahla POOLE CMP, , 2776-04, 1987-08 #### [facility] ([id number]) [address], [address] [place] [address] MAGNESIUMon 10-23-2023 Magnesium [Mass/Vol] 2.4 mg/dL Normal 1.8-2.[address] [facility] Comment on above: Performed By: #### Shahla POOLE CMP, , 2776-04, 1987-08 #### [facility] ([id number]) [address], [address] [place] [address] PHOSPHORUSon 10-23-2023 Phosphate [Mass/Vol] 4.0 mg/dL Normal 2.4-4.[address] [facility] Comment on above: Performed By: #### Shahla POOLE, CMP, , 2776-04, 1987-08 #### [facility] ([id number]) [address], [address] [place] [address] CBC AND AUTO DIFFon 10-22-19 Erythrocyte distribution width (RBC) [Ratio] 15.0 % Normal 11.5-15.0 [facility] Comment on above: Performed By: #### Shahla POOLE CMP, , 2776-04, 1987-08 #### [facility] ([id number]) [address], [address] [place] [address] Hematocrit (Bld) [Volume fraction] 32.1 % Low 35-47 [facility] Comment on above: Performed By: #### Shahla POOLE CMP, , 2776-04, 1987-08 #### [facility] ([id number]) [address], [address] [place] [address] Hemoglobin (Bld) [Mass/Vol] 11.0 g/dL Low 11.7-15.5 [facility] Comment on above: Performed By: #### Shahla POOLE, CMP, , 2776-04, 1987-08 #### [facility] ([id number]) [address] [address] [place] [address] Lymphocytes (Bld) [#/Vol] 1.2 10*3/uL Normal 1.0-3.5 [facility] Comment on above: Performed By: #### Shahla BCA, CMP, , 2776-04, 1987-08 #### [facility] ([id number]) [address], [address] [place] [address] Lymphocytes/100 WBC (Bld) 14.0 % Normal [facility] Comment on above: Performed By: #### Shahla POOLE, CMP, , 2776-04, 1987-08 #### [facility] ([id number]) [address], [address] [place] [address] MCH (RBC) [Entitic mass] 28.8 pg Normal 27-34 [facility] Comment on above: Performed By: #### Shahla POOLE, CMP, , 2776-04, 1987-08 #### [facility] ([id number]) [address], [address] [place] [address] MCHC (RBC) [Mass/Vol] 34.3 g/dL Normal 32-36 [facility] Comment on above: Performed By: #### Shahla BCA, CMP, , 2776-04, 1987-08 #### [facility] ([id number]) [address], [address] [place] [address] MCV (RBC) [Entitic vol] 84 fL Normal 80-100 [facility] Comment on above: Performed By: #### Shahla BCA, CMP, , 2776-04, 1987-08 #### [facility] ([id number]) [address], [address] [place] [address] Metamyelocytes/100 WBC (Bld) 1.0 % Normal [facility] Comment on above: Performed By: #### Shahla BCA, CMP, , 2776-04, 1987-08 #### [facility] ([id number]) [address], [address] [place] [address] Monocytes (Bld) [#/Vol] 0.6 10*3/uL Normal 0-0.9 [facility] Comment on above: Performed By: #### C BCA, CMP, , 2776-04, 1987-08 #### [facility] ([id number]) [address], [address] [place] [address] Monocytes/100 WBC (Bld) 7.0 % Normal [facility] Comment on above: Performed By: #### Shahla BCA, CMP, , 2776-04, 1987-08 #### [facility] ([id number]) [address], [address] [place] [address] MYELOCYTE 3.0 % Normal [facility] Comment on above: Performed By: #### Shahla BCA, CMP, , 2776-04, 1987-08 #### [facility] ([id number]) [address], [address] [place] [address] Neutrophils (Bld) [#/Vol] 6.7 10*3/uL High 1.5-6.6 [facility] Comment on above: Performed By: #### Shahla BCA, CMP, , 2776-04, 1987-08 #### [facility] ([id number]) [address], [address] [place] [address] Platelet mean volume (Bld) [Entitic vol] 9.4 fL Normal 7-12 [facility] Comment on above: Performed By: #### Shahla BCA, CMP, , 2776-04, 1987-08 #### [facility] ([id number]) [address], [address] [place] [address] Platelets (Bld) [#/Vol] 394 10*3/uL Normal 150-450 [facility] Comment on above: Performed By: #### Shahla BCA, CMP, , 2776-04, 1987-08 #### [facility] ([id number]) [address], [address] [place] [address] RBC COUNT 3.83 X10E12/L Normal 3.80-5.20 [facility] Comment on above: Performed By: #### C BCA, CMP, , 2776-04, 1987-08 #### [facility] ([id number]) [address], [address] [place] [address] RBC morphology finding Nom (Bld) NORMAL Normal [facility] Comment on above: Performed By: #### C BCA, CMP, , 2776-04, 1987-08 #### [facility] ([id number]) [address], [address] [place] [address] SEG NEUTROPHIL 75.0 % Normal [facility] Comment on above: Performed By: #### C BCA, CMP, , 2776-04, 1987-08 #### [facility] ([id number]) [address], [address] [place] [address] WBC (Bld) [#/Vol] 8.9 10*3/uL Normal 4.0-11.0 [facility] Comment on above: Performed By: #### C BCA, CMP, , 2776-04, 1987-08 #### [facility] ([id number]) [address], [address] [place] [address] COMPREHENSIVE METABOLIC PANE Phu 10-22-2023 Albumin [Mass/Vol] 3.4 g/dL Normal 3.2-5.3 [facility] Comment on above: Performed By: #### C BCA, CMP, , 2776-04, 1987-08 #### [facility] ([id number]) [address], [address] [place] [address] ALP [Catalytic activity/Vol] 43 U/L Normal 39-130 [facility] Comment on above: Performed By: #### C BCA, CMP, , 2776-04, 1987-08 #### [facility] ([id number]) [address], [address] [place] [address] ALT [Catalytic activity/Vol] 9 U/L Normal 0-31 [facility] Comment on above: Performed By: #### C BCA, CMP, , 2776-04, 1987-08 #### [facility] ([id number]) [address], [address] [place] [address] Anion gap [Moles/Vol] 14 mmol/L Normal 5-15 [facility] Comment on above: Performed By: #### C BCA, CMP, , 2776-04, 1987-08 #### [facility] ([id number]) [address], [address] [place] [address] AST [Catalytic activity/Vol] 12 U/L Normal 0-41 [facility] Comment on above: Performed By: #### C BCA, CMP, , 2776-04, 1987-08 #### [facility] ([id number]) [address], [address] [place] [address] Bilirubin [Mass/Vol] 0.3 mg/dL Normal 0.3-1.[address] [facility] Comment on above: Performed By: #### C BCA, CMP, , 2776-04, 1987-08 #### [facility] ([id number]) [address], [address] [place] [address] Calcium [Mass/Vol] 8.9 mg/dL Normal 8.5-10.5 [facility] Comment on above: Performed By: #### C BCA, CMP, , 2776-04, 1987-08 #### [facility] ([id number]) [address], [address] [place] [address] Chloride [Moles/Vol] 99 mmol/L Normal 98-[address] [facility] Comment on above: Performed By: #### C BCA, CMP, , 2776-04, 1987-08 #### [facility] ([id number]) [address], [address] [place] [address] CO2 [Moles/Vol] 25 mmol/L Normal 22-32 [facility] Comment on above: Performed By: #### C BCA, CMP, , 2776-04, 1987-08 #### [facility] ([id number]) [address] [place] [address] Creatinine [Mass/Vol] 3.16 mg/dL High 0.40-1.00 [facility] Comment on above: Result Comment: METH OD TRACEABLE TO IDMS STANDARD Performed By: #### C EDEL POOLE, , 2776-04, 1987-08 #### [facility] ([id number]) [address], [address] [place] [address] GFR/1.73 sq M.predicted among non-blacks MDRD (S/P/Bld) [Vol rate/Area] 16 mL/min/{1.73_m2} Low >59 [facility] Comment on above: Result Comment: Reported eGFR is based on the CKD-EPI 2020 equation that does not use a race coefficient. Performed By: #### C VIRGILIO CMP, , 2776-04, 1987-08 #### [facility] ([id number]) [address], [address] [place] [address] Glucose [Mass/Vol] 109 mg/dL High 65-99 [facility] Comment on above: Performed By: #### C BCA, CMP, , 2776-04, 1987-08 #### [facility] ([id number]) [address], [address] [place] [address] Potassium [Moles/Vol] 4.0 mmol/L Normal 3.5-5.0 [facility] Comment on above: Performed By: #### C BCA, CMP, , 2776-04, 1987-08 #### [facility] ([id number]) [address], [address] [place] [address] Protein [Mass/Vol] 5.7 g/dL Low 6.0-8.0 [facility] Comment on above: Performed By: #### C BCA, CMP, , 2776-04, 1987-08 #### [facility] ([id number]) [address] [place] [address] Sodium [Moles/Vol] 138 mmol/L Normal 134-146 [facility] Comment on above: Performed By: #### C BCA, CMP, , 2776-04, 1987-08 #### [facility] ([id number]) [address] [place] [address] Urea nitrogen [Mass/Vol] 79 mg/dL High 5-23 [facility] Comment on above: Performed By: #### C BCA, CMP, , 2776-04, 1987-08 #### [facility] ([id number]) [address] [place] [address] Calcium.ionized (Bld) [Mass/ Vol]on 10-22-2023 IONIZED CALCIUM 4.5 mg/dL Normal 4.5-5.3 [facility] Comment on above: Performed By: #### C BCA, CMP, , 2776-04, 1987-08 #### [facility] ([id number]) [address], [address] [place] [address] MAGNESIUMon 10-22-2023 Magnesium [Mass/Vol] 2.5 mg/dL Normal 1.8-2.[address] [facility] Comment on above: Performed By: #### C BCA, CMP, , 2776-04, 1987-08 #### [facility] ([id number]) [address] [place] [address] PHOSPHORUSon 10-22-2023 Phosphate [Mass/Vol] 4.7 mg/dL Normal 2.4-4.[address] [facility] Comment on above: Performed By: #### C EDEL POOLE, , 2776-04, 1987-08 #### [facility] ([id number]) [address], [facility] [address] [place] [address] Basement membrane IgG Qn (S) on 10-21-2023 Glomerular Base Memb IgG <0.2 Normal <1.0 (Negative) [facility] Comment on above: Result Comment: NOTE Test Performed by: [facility] [place] [facility] [place] [address] [place], [place] [id number] Night Nurse: Ledy Son Ph.D.; CLIA# [id number] Performed By: #### Shahla POOLE CMP, , 2776-04, 1987-08 #### [facility] ([id number]) [address], [address] [address] CBC AND AUTO DIFFon 10-21-19 ABSOLUTE BASOPHIL 0.0 X10E9/L Normal 0.0-0.2 [facility] Comment on above: Performed By: #### Shahla POOLE CMP, , 2776-04, 1987-08 #### [facility] ([id number]) [address], [facility] [address] [place] [address] ABSOLUTE NEUTROPHIL 8.8 X10E9/L High 1.5-6.[address] [facility] Comment on above: Performed By: #### C VIRGILIO, CMP, , 2776-04, 1987-08 #### [facility] ([id number]) [address], [address] [address] Basophils/100 WBC (Bld) 0.1 % Normal [facility] Comment on above: Performed By: #### Shahla POOLE, CMP, , 2776-04, 1987-08 #### [facility] ([id number]) [address], [address] [place] [address] Eosinophils (Bld) [#/Vol] 0.0 10*3/uL Normal 0.0-0.4 [facility] Comment on above: Performed By: #### Shahla POOLE CMP, , 2776-04, 1987-08 #### [facility] ([id number]) [address], [facility] [address] [place] [address] Eosinophils/100 WBC (Bld) 0.0 % Normal [facility] Comment on above: Performed By: #### Shahla POOLE CMP, , 2776-04, 1987-08 #### [facility] ([id number]) [address] [address] [place] [address] Erythrocyte distribution width (RBC) [Ratio] 15.1 % High 11.5-15.0 [facility] Comment on above: Performed By: #### Shahla POOLE CMP, , 2776-04, 1987-08 #### [facility] ([id number]) [address] [address] [place] [address] Hematocrit (Bld) [Volume fraction] 30.9 % Low 35-47 [facility] Comment on above: Performed By: #### Shahla POOLE CMP, , 2776-04, 1987-08 #### [facility] ([id number]) [address], [facility] [address] [place] [address] Hemoglobin (Bld) [Mass/Vol] 10.7 g/dL Low 11.7-15.5 [facility] Comment on above: Performed By: #### Shahla POOLE, CMP, , 2776-04, 1987-08 #### [facility] ([id number]) [address] [address] [place] [address] Lymphocytes (Bld) [#/Vol] 1.1 10*3/uL Normal 1.0-3.5 [facility] Comment on above: Performed By: #### C VIRGILIO CMP, , 2776-04, 1987-08 #### [facility] ([id number]) [address] [place] [address] Lymphocytes/100 WBC (Bld) 10.9 % Normal [facility] Comment on above: Performed By: #### Shahla POOLE, CMP, , 2776-04, 1987-08 #### [facility] ([id number]) [address] [place] [address] MCH (RBC) [Entitic mass] 29.1 pg Normal 27-34 [facility] Comment on above: Performed By: #### Shahla POOLE CMP, , 2776-04, 1987-08 #### [facility] ([id number]) [address] [place] [address] MCHC (RBC) [Mass/Vol] 34.7 g/dL Normal 32-36 [facility] Comment on above: Performed By: #### Shahla POOLE CMP, , 2776-04, 1987-08 #### [facility] ([id number]) [address], [address] [place] [address] MCV (RBC) [Entitic vol] 84 fL Normal 80-100 [facility] Comment on above: Performed By: #### Shahla BCA, CMP, , 2776-04, 1987-08 #### [facility] ([id number]) [address], [address] [place] [address] Monocytes (Bld) [#/Vol] 0.2 10*3/uL Normal 0-0.9 [facility] Comment on above: Performed By: #### Shahla POOLE, CMP, , 2776-04, 1987-08 #### [facility] ([id number]) [address] [place] [address] Monocytes/100 WBC (Bld) 2.2 % Normal [facility] Comment on above: Performed By: #### C BCA, CMP, , 2776-04, 1987-08 #### [facility] ([id number]) [address] [place] [address] Neutrophils/100 WBC (Bld) 86.8 % Normal [facility] Comment on above: Performed By: #### C BCA, CMP, , 2776-04, 1987-08 #### [facility] ([id number]) [address] [place] [address] Platelet mean volume (Bld) [Entitic vol] 9.5 fL Normal 7-12 [facility] Comment on above: Performed By: #### Shahla BCA, CMP, , 2776-04, 1987-08 #### [facility] ([id number]) [address] [place] [address] Platelets (Bld) [#/Vol] 297 10*3/uL Normal 150-450 [facility] Comment on above: Performed By: #### Shahla BCA, CMP, , 2776-04, 1987-08 #### [facility] ([id number]) [address] [place] [address] RBC COUNT 3.69 X10E12/L Low 3.80-5.20 [facility] Comment on above: Performed By: #### Shahla BCA, CMP, , 2776-04, 1987-08 #### [facility] ([id number]) [address], [address] [place] [address] WBC (Bld) [#/Vol] 10.2 10*3/uL Normal 4.0-11.0 [facility] Comment on above: Performed By: #### Shahla BCA, CMP, , 2776-04, 1987-08 #### [facility] [facility] ([id number]) [address], [address] [place] [address] COMPREHENSIVE METABOLIC PANE Phu 10-21-2023 Albumin [Mass/Vol] 3.6 g/dL Normal 3.2-5.3 [facility] Comment on above: Performed By: #### C BCA, CMP, , 2776-04, 1987-08 #### [facility] ([id number]) [address], [address] [place] [address] ALP [Catalytic activity/Vol] 46 U/L Normal 39-130 [facility] Comment on above: Performed By: #### C BCA, CMP, , 2776-04, 1987-08 #### [facility] ([id number]) [address], [address] [place] [address] ALT [Catalytic activity/Vol] 15 U/L Normal 0-31 [facility] Comment on above: Performed By: #### C BCA, CMP, , 2776-04, 1987-08 #### [facility] ([id number]) [address], [address] [place] [address] Anion gap [Moles/Vol] 12 mmol/L Normal 5-15 [facility] Comment on above: Performed By: #### C BCA, CMP, , 2776-04, 1987-08 #### [facility] ([id number]) [address], [address] [place] [address] AST [Catalytic activity/Vol] 18 U/L Normal 0-41 [facility] Comment on above: Performed By: #### C BCA, CMP, , 2776-04, 1987-08 #### [facility] ([id number]) [address], [address] [place] [address] Bilirubin [Mass/Vol] 0.3 mg/dL Normal 0.3-1.[address] [facility] Comment on above: Performed By: #### C BCA, CMP, , 2776-04, 1987-08 #### [facility] ([id number]) [address], [address] [place] [address] Calcium [Mass/Vol] 8.8 mg/dL Normal 8.5-10.5 [facility] Comment on above: Performed By: #### C BCA, CMP, , 2776-04, 1987-08 #### [facility] ([id number]) [address], [address] [place] [address] Chloride [Moles/Vol] 96 mmol/L Low 98-[address] [facility] Comment on above: Performed By: #### C BCA, CMP, , 2776-04, 1987-08 #### [facility] ([id number]) [address], [address] [place] [address] CO2 [Moles/Vol] 28 mmol/L Normal 22-32 [facility] Comment on above: Performed By: #### C BCA, CMP, , 2776-04, 1987-08 #### [facility] ([id number]) [address], [address] [place] [address] Creatinine [Mass/Vol] 3.71 mg/dL High 0.40-1.00 [facility] Comment on above: Result Comment: METH OD TRACEABLE TO IDMS STANDARD Performed By: #### C BCA, CMP, , 2776-04, 1987-08 #### [facility] ([id number]) [address], [address] [place] [address] GFR/1.73 sq M.predicted among non-blacks MDRD (S/P/Bld) [Vol rate/Area] 13 mL/min/{1.73_m2} Low >59 [facility] Comment on above: Result Comment: Reported eGFR is based on the CKD-EPI 2020 equation that does not use a race coefficient. Performed By: #### C VIRGILIO, CMP, , 2776-04, 1987-08 #### [facility] ([id number]) [address], [address] [place] [address] Glucose [Mass/Vol] 131 mg/dL High 65-99 [facility] Comment on above: Performed By: #### C BCA, CMP, , 2776-04, 1987-08 #### [facility] ([id number]) [address], [address] [place] [address] Potassium [Moles/Vol] 4.6 mmol/L Normal 3.5-5.0 [facility] Comment on above: Performed By: #### C BCA, CMP, , 2776-04, 1987-08 #### [facility] ([id number]) [address], [address] [place] [address] Protein [Mass/Vol] 5.9 g/dL Low 6.0-8.0 [facility] Comment on above: Performed By: #### C VIRGILIO, CMP, , 2776-04, 1987-08 #### [facility] ([id number]) [address], [address] [place] [address] Sodium [Moles/Vol] 136 mmol/L Normal 134-146 [facility] Comment on above: Performed By: #### C BCA, CMP, , 2776-04, 1987-08 #### [facility] ([id number]) [address], [address] [place] [address] Urea nitrogen [Mass/Vol] 80 mg/dL High 5-23 [facility] Comment on above: Performed By: #### C BCA, CMP, , 2776-04, 1987-08 #### [facility] ([id number]) [address], [address] [place] [address] Calcium.ionized (Bld) [Mass/ Vol]on 10-21-2023 IONIZED CALCIUM 4.5 mg/dL Normal 4.5-5.3 [facility] Comment on above: Performed By: #### Shahla POOLE CMP, , 2776-04, 1987-08 #### [facility] ([id number]) [address], [address] [place] [address] MAGNESIUMon 10-21-2023 Magnesium [Mass/Vol] 2.4 mg/dL Normal 1.8-2.[address] [facility] Comment on above: Performed By: #### Shahla POOLE CMP, , 2776-04, 1987-08 #### [facility] ([id number]) [address], [address] [place] [address] PHOSPHORUSon 10-21-2023 Phosphate [Mass/Vol] 5.5 mg/dL High 2.4-4.[address] [facility] Comment on above: Performed By: #### Shahla POOLE CMP, , 2776-04, 1987-08 #### [facility] ([id number]) [address], [address] [place] [address] CBC AND AUTO DIFFon 10-20-19 24 ABSOLUTE BASOPHIL 0.0 X10E9/L Normal 0.0-0.2 [facility] Comment on above: Performed By: #### Shahla POOLE CMP, , 2776-04, 1987-08 #### [facility] ([id number]) [address], [address] [place] [address] ABSOLUTE NEUTROPHIL 14.6 X10E9/L High 1.5-6.6 [facility] Comment on above: Performed By: #### Shahla POOLE, CMP, , 2776-04, 1987-08 #### [facility] ([id number]) [address], [address] [place] [address] Basophils/100 WBC (Bld) 0.1 % Normal [facility] Comment on above: Performed By: #### C BCA, CMP, , 2776-04, 1987-08 #### [facility] ([id number]) [address], [address] [place] [address] Eosinophils (Bld) [#/Vol] 0.0 10*3/uL Normal 0.0-0.4 [facility] Comment on above: Performed By: #### C BCA, CMP, , 2776-04, 1987-08 #### [facility] ([id number]) [address], [address] [place] [address] Eosinophils/100 WBC (Bld) 0.0 % Normal [facility] Comment on above: Performed By: #### Shahla BCA, CMP, , 2776-04, 1987-08 #### [facility] ([id number]) [address], [address] [place] [address] Erythrocyte distribution width (RBC) [Ratio] 15.3 % High 11.5-15.0 [facility] Comment on above: Performed By: #### Shahla BCA, CMP, , 2776-04, 1987-08 #### [facility] ([id number]) [address], [address] [place] [address] Hematocrit (Bld) [Volume fraction] 32.0 % Low 35-47 [facility] Comment on above: Performed By: #### C BCA, CMP, , 2776-04, 1987-08 #### [facility] ([id number]) [address], [address] [place] [address] Hemoglobin (Bld) [Mass/Vol] 10.5 g/dL Low 11.7-15.5 [facility] Comment on above: Performed By: #### C BCA, CMP, , 2776-04, 1987-08 #### [facility] ([id number]) [address], [address] [place] [address] Lymphocytes (Bld) [#/Vol] 1.7 10*3/uL Normal 1.0-3.5 [facility] Comment on above: Performed By: #### Shahla POOLE [facility], , 2776-04, 1987-08 #### [facility] ([id number]) [address], [address] [place] [address] Lymphocytes/100 WBC (Bld) 10.3 % Normal [facility] Comment on above: Performed By: #### Shahla POOLE [facility], , 2776-04, 1987-08 #### [facility] ([id number]) [address], [address] [place] [address] MCH (RBC) [Entitic mass] 27.7 pg Normal 27-34 [facility] Comment on above: Performed By: #### Shahla POOLE [facility], , 2776-04, 1987-08 #### [facility] ([id number]) [address], [address] [place] [address] MCHC (RBC) [Mass/Vol] 32.9 g/dL Normal 32-36 [facility] Comment on above: Performed By: #### Shahla POOLE CMP, , 2776-04, 1987-08 #### [facility] ([id number]) [address], [address] [place] [address] MCV (RBC) [Entitic vol] 84 fL Normal 80-100 [facility] Comment on above: Performed By: #### Shahla POOLE, CMP, , 2776-04, 1987-08 #### [facility] ([id number]) [address], [address] [place] [address] Monocytes (Bld) [#/Vol] 0.4 10*3/uL Normal 0-0.9 [facility] Comment on above: Performed By: #### C BCA, CMP, , 2776-04, 1987-08 #### [facility] ([id number]) [address], [address] [place] [address] Monocytes/100 WBC (Bld) 2.2 % Normal [facility] Comment on above: Performed By: #### C BCA, CMP, , 2776-04, 1987-08 #### [facility] ([id number]) [address], [address] [place] [address] Neutrophils/100 WBC (Bld) 87.4 % Normal [facility] Comment on above: Performed By: #### C BCA, CMP, , 2776-04, 1987-08 #### [facility] ([id number]) [address], [address] [place] [address] Platelet mean volume (Bld) [Entitic vol] 9.3 fL Normal 7-12 [facility] Comment on above: Performed By: #### Shahla BCA, CMP, , 2776-04, 1987-08 #### [facility] ([id number]) [address], [address] [place] [address] Platelets (Bld) [#/Vol] 350 10*3/uL Normal 150-450 [facility] Comment on above: Performed By: #### C BCA, CMP, , 2776-04, 1987-08 #### [facility] ([id number]) [address], [address] [place] [address] RBC COUNT 3.80 X10E12/L Normal 3.80-5.20 [facility] Comment on above: Performed By: #### C BCA, CMP, , 2776-04, 1987-08 #### [facility] ([id number]) [address], [address] [place] [address] WBC (Bld) [#/Vol] 16.7 10*3/uL High 4.0-11.0 [facility] Comment on above: Performed By: #### C BCA, CMP, , 2776-04, 1987-08 #### [facility] ([id number]) [address], [address] [place] [address] COMPREHENSIVE METABOLIC PANE Phu 10-20-2023 Albumin [Mass/Vol] 3.6 g/dL Normal 3.2-5.3 [facility] Comment on above: Performed By: #### C BCA, CMP, , 2776-04, 1987-08 #### [facility] ([id number]) [address], [address] [place] [address] ALP [Catalytic activity/Vol] 53 U/L Normal 39-130 [facility] Comment on above: Performed By: #### C BCA, CMP, , 2776-04, 1987-08 #### [facility] ([id number]) [address], [address] [place] [address] ALT [Catalytic activity/Vol] 14 U/L Normal 0-31 [facility] Comment on above: Performed By: #### C BCA, CMP, , 2776-04, 1987-08 #### [facility] ([id number]) [address], [address] [place] [address] Anion gap [Moles/Vol] 13 mmol/L Normal 5-15 [facility] Comment on above: Performed By: #### C BCA, CMP, , 2776-04, 1987-08 #### [facility] ([id number]) [address], [address] [place] [address] AST [Catalytic activity/Vol] 27 U/L Normal 0-41 [facility] Comment on above: Performed By: #### C BCA, CMP, , 2776-04, 1987-08 #### [facility] ([id number]) [address], [address] [place] [address] Bilirubin [Mass/Vol] 0.3 mg/dL Normal 0.3-1.[address] [facility] Comment on above: Performed By: #### C BCA, CMP, , 2776-04, 1987-08 #### [facility] ([id number]) [address], [address] [place] [address] Calcium [Mass/Vol] 9.1 mg/dL Normal 8.5-10.5 [facility] Comment on above: Performed By: #### C BCA, CMP, , 2776-04, 1987-08 #### [facility] ([id number]) [address], [address] [place] [address] Chloride [Moles/Vol] 94 mmol/L Low 98-[address] [facility] Comment on above: Performed By: #### C BCA, [facility], , 2776-04, 1987-08 #### [facility] ([id number]) [address], [address] [place] [address] CO2 [Moles/Vol] 28 mmol/L Normal 22-32 [facility] Comment on above: Performed By: #### C BCA, CMP, , 2776-04, 1987-08 #### [facility] ([id number]) [address], [address] [place] [address] Creatinine [Mass/Vol] 3.58 mg/dL High 0.40-1.00 [facility] Comment on above: Result Comment: METH OD TRACEABLE TO IDMS STANDARD Performed By: #### C BCA, CMP, , 2776-04, 1987-08 #### [facility] ([id number]) [address], [address] [place] [address] GFR/1.73 sq M.predicted among non-blacks MDRD (S/P/Bld) [Vol rate/Area] 14 mL/min/{1.73_m2} Low >59 [facility] Comment on above: Result Comment: Reported eGFR is based on the CKD-EPI 2020 equation that does not use a race coefficient. Performed By: #### C EDEL POOLE, , 2776-04, 1987-08 #### [facility] ([id number]) [address], [address] [place] [address] Glucose [Mass/Vol] 133 mg/dL High 65-99 [facility] Comment on above: Performed By: #### C VIRGILIO [facility], , 2776-04, 1987-08 #### [facility] ([id number]) [address], [address] [place] [address] Potassium [Moles/Vol] 4.8 mmol/L Normal 3.5-5.0 [facility] Comment on above: Performed By: #### C VIRGILIO [facility], , 2776-04, 1987-08 #### [facility] ([id number]) [address], [address] [place] [address] Protein [Mass/Vol] 6.1 g/dL Normal 6.0-8.0 [facility] Comment on above: Performed By: #### C VIRGILIO [facility], , 2776-04, 1987-08 #### [facility] ([id number]) [address], [address] [place] [address] Sodium [Moles/Vol] 135 mmol/L Normal 134-146 [facility] Comment on above: Performed By: #### C VIRGILIO CMP, , 2776-04, 1987-08 #### [facility] ([id number]) [address], [address] [place] [address] Urea nitrogen [Mass/Vol] 70 mg/dL High 5-23 [facility] Comment on above: Performed By: #### C VIRGILIO, [facility], [address]-1, 2776-04, 1987-08 #### [facility] ([id number]) [address], [address] [place] [address] Calcium.ionized (Bld) [Mass/ Vol]on 10-20-2023 IONIZED CALCIUM 4.6 mg/dL Normal 4.5-5.3 [facility] Comment on above: Performed By: #### C BCA, [facility], , 2776-04, 1987-08 #### [facility] ([id number]) [address], [address] [place] [address] IR BIOPSY RENAL PERC RTon IR BIOPSY RENAL PERC RT IR BIOPSY RENAL PERC RT CLINICAL INDICATION: Renal failure. Kidney injury. COMPARISON: None TECHNIQUE: Procedure performed by Interventional Radiologist Sunny Mann M.D. CONSENT: The reason for the procedure was discussed with the patient. The procedure, expectations, risks, benefits, options and alternatives were discussed. All of the patient?s questions were answered. The patient understands that the results cannot be guaranteed. The procedure is indicated and the risks are acceptable. Consent was obtained. SEDATION: The patient?s cardiopulmonary status was evaluated and the patient is suitable for moderate sedation. During the course of the procedure, the patient was sedated with Fentanyl 50 mcg intravenously and Versed 0.5 mg intravenously, while being monitored with ECG, blood pressure monitoring, and pulse oximeter by appropriately trained personnel, for a total sedation time of 30 minutes. Following the procedure, the patient was recovered according to the moderate sedation policy. All CT scans at this facility use dose modulation, iterative reconstruction, and/or weight based dosing when appropriate to reduce radiation dose to as low as reasonably achievable. PROCEDURE: CT-guided core biopsy right kidney. Details of procedure: Patient placed in the prone position on the CT table. A CT scan of the kidneys was performed. An appropriate skin entry site was marked over the lower pole renal cortex right kidney. The skin was prepped and draped in usual sterile fashion. 1% lidocaine without epinephrine was used as a local anesthetic. At that time, under CT guidance, a 17-gauge coaxial needle was advanced into the renal cortex of the right kidney lower pole. Once position of the needle was confirmed with CT, the stylette was removed and a total of 5 18-gauge core biopsy samples were obtained. Pathology was present during the examination and confirmed adequate number of glomeruli. Gelfoam was then used to hemostasis and the needle was removed. A final CT scan was performed. The patient tolerated the procedure well and there were no immediate complications. FINDINGS: 1. Successful CT-guided percutaneous needle access into the renal cortex at the lower pole right kidney. 2. A total of 5 18-gauge core biopsy samples were obtained. Pathology was present during the examination and confirmed adequate number of glomeruli in the samples for appropriate testing. 3. CT scan postbiopsy demonstrates no immediate complication. IMPRESSION: Successful CT-guided core biopsy right kidney. Finalized by Sunny Mann MD on 10/20/2023 3:13 PM Normal [facility] MAGNESIUMon 10-20-2023 Magnesium [Mass/Vol] 2.3 mg/dL Normal 1.8-2.[address] [facility] Comment on above: Performed By: #### C BCA, CMP, 21769-1, 7, 1987-08 #### [facility] ([id number]) [address] [place], [place] [address] PHOSPHORUSon 10-20-2023 Phosphate [Mass/Vol] 6.3 mg/dL High 2.4-4.[address] [facility] Comment on above: Performed By: #### C BCA, CMP, 34541-6, 2776-04, 1987-08 #### [facility] ([id number]) [address] [place] [address], [address] [place] [address] Surgical Pathologyon 024 Surgical Pathology Normal [facility] Comment on above: Result Comment: [facility] [address] [place] [address] Surgical Pathology Consultation ADDENDUM [facility] Patient Name:DANIELLE MONTANA:1965 (Age: 58)Gender:FTaken:10/20/2023eported:10/24/2023hysician(s):Wanda Shields [place] ([phone])Copy To:MD Natasha ROSALES M.D. Rec. #:[id number]: #[id number] Final Pathologic Diagnosis Right kidney, needle biopsy: Specimen sent to [facility]. 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 See comment. Comment: The sample is limited in that tissue allocated for immunofluorescence studies is only composed of medulla. 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 [place] MICHAEL. Histopathologic classification of ANCA-associated glomerulonephritis. J Am Soc Nephrol. 2010 Jan;21(10):1628-36. 2. Andreina Cedeño. Validating the new classification system for ANCA-associated GN. Renata Rev Nephrol 9, 433 (2013)). Pronase immunofluorescence studies and ultrastructural studies are pending for exclusion of a concurrent immune complex mediated process. Of note, in light of the temporal heterogeneity of the crescents, the possibility of a concurrent anti GBM antibody can not be excluded. Correlation with anti GBM serology is strongly recommended. Electron microscopy will be reported as an addendum. Please see the complete report from [facility] in the patient's EMR. Electronically Signed Out Trace Meza MD Addendum (PHS) Date Reported: 11/02/2023 Results of Addendum (Electron Microscopy) dated are received from Deidra Bustos M.D., [facility], [address] [place] [address] and are as follows: Paraffin-based immunofluorescence stains for IgA, IgM, IgG, C1q, kappa and lambda light chain are also performed with pronase digestion for antigen retrieval purposes: There are at least 17 glomeruli, 4 of which appear to be sclerosed. There is granular peripheral capillary wall deposits which are more segmentally accentuated. The deposits demonstrate immunoreactivity with IgG (3+), kappa light chain (1+) and lambda light chain (1+). There is no significant staining of the glomeruli with IgA, IgM and C1q. Tubular protein reabsorption droplets are seen staining with IgA, kappa and lambda light chain. Both standard immunofluorescence and paraffin-based immunofluorescence (with enzyme treatment for antigen retrieval) have been performed in the current case because they are medically necessary to arrive at the correct diagnosis. Several antigens analyzed by standard immunofluorescence have also been evaluated via paraffin-based immunofluorescence given specific differences in the tissue sample and/or the case meets the criteria for one of the specific published indications for paraffin immunofluorescence. Impression: Kidney, needle biopsy: Limited sample showin. Diffuse necrotizing and crescentic glomerulonephritis, MPO ANCA mediated. 2. Membranous nephropathy, stage 2-3. See comment. Comment: Additional mass spectrometry studies will be performed to identify the associated membranous antigen. Electron microscopy digital image review was used in the diagnostic assessment of this case. Please see the complete report from [facility] in the patient's EMR. Electronically Signed Out Trace Meza MD Addendum ([facility]) Date Reported: 11/08/2023 Results of Mass Spectrometry dated 11/07/2023 are received from Adan Yates M.D., Ph.D., [facility], [address] [place] [address] and are as follows: MASS SPECTROMETRY Liquid chromatography tandem mass spectrometry (LC MS/MS) was performed on peptides extracted from glomeruli that were microdissected from the paraffin-embedded specimen. LC MS/MS did not detect a peptide profile consistent with any of the following antigens: PLA2R, THSD7A, EXT1/EXT2, NELL1, SEMA3B, CNTN1, NCAM1, PCSK6, PCDH7, FAT1 or NDNF. Please see the complete report from [facility] (more content not included)... CBC AND AUTO DIFFon 10-19-19 24 Band form neutrophils/100 WBC (Bld) 1.0 % Normal [facility] Comment on above: Performed By: #### C VIRGILIO [facility], , 2776-04, 1987-08 #### [facility] ([id number]) [address] [place] [address] Erythrocyte distribution width (RBC) [Ratio] 14.9 % Normal 11.5-15.0 [facility] Comment on above: Performed By: #### C VIRGILIO CMP, , 2776-04, 1987-08 #### [facility] ([id number]) [address], [address] [place] [address] Hematocrit (Bld) [Volume fraction] 34.4 % Low 35-47 [facility] Comment on above: Performed By: #### C VIRGILIO CMP, , 2776-04, 1987-08 #### [facility] ([id number]) [address], [address] [place] [address] Hemoglobin (Bld) [Mass/Vol] 11.4 g/dL Low 11.7-15.5 [facility] Comment on above: Performed By: #### C BCA, CMP, , 2776-04, 1987-08 #### [facility] ([id number]) [address], [address] [place] [address] Lymphocytes (Bld) [#/Vol] 1.9 10*3/uL Normal 1.0-3.5 [facility] Comment on above: Performed By: #### C BCA, CMP, , 2776-04, 1987-08 #### [facility] ([id number]) [address], [facility] [address] [place] [address] Lymphocytes/100 WBC (Bld) 15.0 % Normal [facility] Comment on above: Performed By: #### Shahla BCA, CMP, , 2776-04, 1987-08 #### [facility] ([id number]) [address], [address] [place] [address] MCH (RBC) [Entitic mass] 27.8 pg Normal 27-34 [facility] Comment on above: Performed By: #### Shahla BCA, CMP, , 2776-04, 1987-08 #### [facility] ([id number]) [address], [facility] [address] [place] [address] MCHC (RBC) [Mass/Vol] 33.2 g/dL Normal 32-36 [facility] Comment on above: Performed By: #### Shahla BCA, CMP, , 2776-04, 1987-08 #### [facility] ([id number]) [address] [address] [place] [address] MCV (RBC) [Entitic vol] 84 fL Normal 80-100 [facility] Comment on above: Performed By: #### Shahla BCA, CMP, , 2776-04, 1987-08 #### [facility] ([id number]) [address], [address] [place] [address] Metamyelocytes/100 WBC (Bld) 1.0 % Normal [facility] Comment on above: Performed By: #### C VIRGILIO, CMP, , 2776-04, 1987-08 #### [facility] ([id number]) [address], [address] [place] [address] Monocytes (Bld) [#/Vol] 0.1 10*3/uL Normal 0-0.9 [facility] Comment on above: Performed By: #### C BCA, CMP, , 2776-04, 1987-08 #### [facility] ([id number]) [address], [address] [place] [address] Monocytes/100 WBC (Bld) 1.0 % Normal [facility] Comment on above: Performed By: #### Shahla BCA, CMP, , 2776-04, 1987-08 #### [facility] ([id number]) [address], [address] [place] [address] Neutrophils (Bld) [#/Vol] 10.4 10*3/uL High 1.5-6.6 [facility] Comment on above: Performed By: #### Shahla BCA, CMP, , 2776-04, 1987-08 #### [facility] ([id number]) [address], [address] [place] [address] Platelet mean volume (Bld) [Entitic vol] 9.3 fL Normal 7-12 [facility] Comment on above: Performed By: #### C BCA, CMP, , 2776-04, 1987-08 #### [facility] ([id number]) [address], [address] [place] [address] Platelets (Bld) [#/Vol] 324 10*3/uL Normal 150-450 [facility] Comment on above: Performed By: #### C BCA, CMP, , 2776-04, 1987-08 #### [facility] ([id number]) [address], [address] [place] [address] POLYCHROMASIA 1+ Abnormal NONE [facility] Comment on above: Performed By: #### C BCA, CMP, , 2776-04, 1987-08 #### [facility] ([id number]) [address], [address] [place] [address] RBC COUNT 4.09 X10E12/L Normal 3.80-5.20 [facility] Comment on above: Performed By: #### C BCA, CMP, , 2776-04, 1987-08 #### [facility] ([id number]) [address], [address] [place] [address] SEG NEUTROPHIL 82.0 % Normal [facility] Comment on above: Performed By: #### C BCA, CMP, , 2776-04, 1987-08 #### [facility] ([id number]) [address], [address] [place] [address] WBC (Bld) [#/Vol] 12.5 10*3/uL High 4.0-11.0 [facility] Comment on above: Performed By: #### C BCA, CMP, , 2776-04, 1987-08 #### [facility] ([id number]) [address], [address] [place] [address] COMPREHENSIVE METABOLIC PANE Phu 10-19-2023 Albumin [Mass/Vol] 3.7 g/dL Normal 3.2-5.3 [facility] Comment on above: Performed By: #### C BCA, CMP, , 2776-04, 1987-08 #### [facility] ([id number]) [address], [address] [place] [address] ALP [Catalytic activity/Vol] 58 U/L Normal 39-130 [facility] Comment on above: Performed By: #### C BCA, CMP, , 2776-04, 1987-08 #### [facility] ([id number]) [address], [address] [place] [address] ALT [Catalytic activity/Vol] 10 U/L Normal 0-31 [facility] Comment on above: Performed By: #### C BCA, CMP, , 2776-04, 1987-08 #### [facility] ([id number]) [address], [address] [place] [address] Anion gap [Moles/Vol] 13 mmol/L Normal 5-15 [facility] Comment on above: Performed By: #### C BCA, CMP, , 2776-04, 1987-08 #### [facility] ([id number]) [address], [address] [place] [address] AST [Catalytic activity/Vol] 17 U/L Normal 0-41 [facility] Comment on above: Performed By: #### C BCA, CMP, , 2776-04, 1987-08 #### [facility] ([id number]) [address], [address] [place] [address] Bilirubin [Mass/Vol] 0.3 mg/dL Normal 0.3-1.[address] [facility] Comment on above: Performed By: #### C BCA, CMP, , 2776-04, 1987-08 #### [facility] ([id number]) [address], [address] [place] [address] Calcium [Mass/Vol] 9.9 mg/dL Normal 8.5-10.5 [facility] Comment on above: Performed By: #### C BCA, CMP, , 2776-04, 1987-08 #### [facility] ([id number]) [address], [address] [place] [address] Chloride [Moles/Vol] 95 mmol/L Low 98-[address] [facility] Comment on above: Performed By: #### C BCA, CMP, , 2776-04, 1987-08 #### [facility] ([id number]) [address], [address] [place] [address] CO2 [Moles/Vol] 28 mmol/L Normal 22-32 [facility] Comment on above: Performed By: #### C BCA, CMP, , 2776-04, 1987-08 #### [facility] ([id number]) [address] [place] [address] Creatinine [Mass/Vol] 3.62 mg/dL High 0.40-1.00 [facility] Comment on above: Result Comment: METH OD TRACEABLE TO IDMS STANDARD Performed By: #### C BCA, CMP, , 2776-04, 1987-08 #### [facility] ([id number]) [address], [address] [place] [address] GFR/1.73 sq M.predicted among non-blacks MDRD (S/P/Bld) [Vol rate/Area] 14 mL/min/{1.73_m2} Low >59 [facility] Comment on above: Result Comment: Reported eGFR is based on the CKD-EPI 2020 equation that does not use a race coefficient. Performed By: #### C BCA, CMP, , 2776-04, 1987-08 #### [facility] ([id number]) [address], [address] [place] [address] Glucose [Mass/Vol] 146 mg/dL High 65-99 [facility] Comment on above: Performed By: #### C BCA, CMP, , 2776-04, 1987-08 #### [facility] ([id number]) [address], [address] [place] [address] Potassium [Moles/Vol] 5.2 mmol/L High 3.5-5.0 [facility] Comment on above: Performed By: #### C VIRGILIO CMP, , 2776-04, 1987-08 #### [facility] ([id number]) [address], [address] [place] [address] Protein [Mass/Vol] 6.4 g/dL Normal 6.0-8.0 [facility] Comment on above: Performed By: #### C VIRGILIO CMP, , 2776-04, 1987-08 #### [facility] ([id number]) [address], [address] [place] [address] Sodium [Moles/Vol] 136 mmol/L Normal 134-146 [facility] Comment on above: Performed By: #### Shahla POOLE CMP, , 2776-04, 1987-08 #### [facility] ([id number]) [address], [address] [place] [address] Urea nitrogen [Mass/Vol] 53 mg/dL High 5-23 [facility] Comment on above: Performed By: #### Shahla POOLE, CMP, , 2776-04, 1987-08 #### [facility] ([id number]) [address], [address] [place] [address] CRP [Mass/Vol]on 10-19-2023 C REACTIVE PROTEIN 0.9 mg/dL High 0.000-0.744 [facility] Comment on above: Performed By: #### C VIRGILIO, CMP, , 2776-04, 1987-08 #### [facility] ([id number]) [address] [place] [address] Calcium.ionized (Bld) [Mass/ Vol]on 10-19-2023 IONIZED CALCIUM 4.6 mg/dL Normal 4.5-5.3 [facility] Comment on above: Performed By: #### 3 8230-9 #### [facility] ([id number]) [address], [address] [place] [address] IMMUNOGLOBULINSon 10-19-2023 IgA [Mass/Vol] 109 mg/dL Normal 68-378 [facility] Comment on above: Performed By: #### P INR, 75717-6, IMGB #### [facility] ([id number]) [address], [address] [place] [address] IgG [Mass/Vol] 460 mg/dL Low 635-1741 [facility] Comment on above: Performed By: #### P INR, 19937-9, IMGB #### [facility] ([id number]) [address], [address] [place] [address] IgM [Mass/Vol] 98 mg/dL Normal 45-281 [facility] Comment on above: Performed By: #### P INR, 51441-4, IMGB #### [facility] ([id number]) [address] [place] [address] MAGNESIUMon 10-19-2023 Magnesium [Mass/Vol] 2.0 mg/dL Normal 1.8-2.[address] [facility] Comment on above: Performed By: #### C VIRGILIO CMP, , 2776-04, 1987-08 #### [facility] ([id number]) [address], [address] [place] [address] PHOSPHORUSon 10-19-2023 Phosphate [Mass/Vol] 4.8 mg/dL Normal 2.4-4.[address] [facility] Comment on above: Performed By: #### C BCA, CMP, , 2776-04, 1987-08 #### [facility] ([id number]) [address], [address] [place] [address] PLATELET FUNCTIONon 10-19-19 24 COLLAGEN/ADP 72 sec Normal 0-114 [facility] Comment on above: Performed By: #### P FA, PINR, 80511-6 #### [facility] ([id number]) [address], [address] [place] [address] COLLAGEN/EPINEPHRINE 81 sec Normal 0-[address] [facility] Comment on above: Performed By: #### P FA, PINR, 24941-6 #### [facility] ([id number]) [address], [address] [place] [address] PFA INTERP Platelet function is normal. If patient Normal [facility] Comment on above: Result Comment: hist ory/physical examination gives strong indication of a bleeding disorder, consider testing for other etiologies. Performed By: #### P FA, PINR, 92442-4 #### [facility] ([id number]) [address], [address] [place] [address] PROTIME AND INRon 10-19-2023 INR Coag (PPP) [Relative time] 0.9 {INR} Normal 0.8-1.1 [facility] Comment on above: Performed By: #### C VIRGILIO CMP, , 2776-04, 1987-08 #### [facility] ([id number]) [address], [address] [place] [address] PT Coag (PPP) [Time] 10.4 s Normal 9.8-13.[address] [facility] Comment on above: Performed By: #### C VIRGILIO, CMP, , 2776-04, 1987-08 #### [facility] ([id number]) [address] [address] [place] [address] INR Coag (PPP) [Relative time] 0.9 {INR} Normal 0.8-1.1 [facility] Comment on above: Performed By: #### P INR, 92304-3, IMGB #### [facility] ([id number]) [address] [place] [address] PT Coag (PPP) [Time] 10.4 s Normal 9.8-13.[address] [facility] Comment on above: Performed By: #### P INR, 31885-1, IMGB #### [facility] ([id number]) [address], [address] [place] [address] aPTT Coag (PPP) [Time]on aPTT Coag (Bld) [Time] 40 s High 26-37 [facility] Comment on above: Performed By: #### C VIRGILIO, CMP, , 2776-04, 1987-08 #### [facility] ([id number]) [address], [address] [place] [address] aPTT Coag (Bld) [Time] 34 s Normal -37 [facility] Comment on above: Performed By: #### P INR, 60078-5, IMGB #### [facility] ([id number]) [address], [address] [place] [address] Basement membrane IgG Qn (S) on 10-18-2023 Glomerular Base Memb IgG <0.2 Normal <1.0 (Negative) [facility] Comment on above: Result Comment: NOTE Test Performed by: [facility] [place] [facility] [place] [address] [place] [address] Night Nurse: Ledy Son Ph.D.; CLIA# [id number] Performed By: #### 8 9579-7 #### [facility] ([id number]) [address] [place] [address], [place] [address] CBC AND AUTO DIFFon 10-18-19 24 ABSOLUTE BASOPHIL 0.1 X10E9/L Normal 0.0-0.2 [place] Comment on above: Performed By: #### C BCA, CMP, , 2776-04 ####[facility] ([id number])[address] [place] [address] ABSOLUTE NEUTROPHIL 4.5 X10E9/L Normal 1.5-6.6 [facility] Comment on above: Performed By: #### Shahla POOLE CMP, , 2776-04 ####[facility] ([id number])[address] [place] [address] Basophils/100 WBC (Bld) 1.0 % Normal [facility] Comment on above: Performed By: #### Shahla POOLE, CMP, , 2776-04 ####[facility] ([id number])[address] [place] [address] Eosinophils (Bld) [#/Vol] 0.4 10*3/uL Normal 0.0-0.4 [facility] Comment on above: Performed By: #### Shahla POOLE CMP, , 2776-04 ####[facility] ([id number])[address] [place] [address] Eosinophils/100 WBC (Bld) 5.1 % Normal [facility] Comment on above: Performed By: #### Shahla POOLE, CMP, , 2776-04 ####[facility] ([id number])[address] [place] [address] Erythrocyte distribution width (RBC) [Ratio] 15.0 % Normal 11.5-15.0 [facility] Comment on above: Performed By: #### Shahla POOLE CMP, , 2776-04 ####[facility] ([id number])[address] [place] [address] Hematocrit (Bld) [Volume fraction] 31.7 % Low 35-47 [facility] Comment on above: Performed By: #### Shahla POOLE CMP, , 2776-04 ####[facility] ([id number])[address] [place] [address] Hemoglobin (Bld) [Mass/Vol] 10.5 g/dL Low 11.7-15.5 [facility] Comment on above: Performed By: #### Shahla POOLE CMP, , 2776-04 ####[facility] ([id number])[address] [place] [address] Lymphocytes (Bld) [#/Vol] 2.1 10*3/uL Normal 1.0-3.5 [facility] Comment on above: Performed By: #### Shahla POOLE CMP, , 2776-04 ####[facility] ([id number])[address] [place] [address] Lymphocytes/100 WBC (Bld) 27.3 % Normal [facility] Comment on above: Performed By: #### Shahla POOLE CMP, , 2776-04 ####[facility] ([id number])[address] [place] [address] MCH (RBC) [Entitic mass] 27.7 pg Normal 27-34 [facility] Comment on above: Performed By: #### Shahla POOLE CMP, , 2776-04 ####[facility] ([id number])[address] [place] [address] MCHC (RBC) [Mass/Vol] 33.1 g/dL Normal 32-36 [facility] Comment on above: Performed By: #### Shahla POOLE CMP, , 2776-04 ####[facility] ([id number])[address] [place] [address] MCV (RBC) [Entitic vol] 84 fL Normal 80-100 [facility] Comment on above: Performed By: #### Shahla POOLE CMP, , 2776-04 ####[facility] ([id number])[address] [place] [address] Monocytes (Bld) [#/Vol] 0.7 10*3/uL Normal 0-0.9 [facility] Comment on above: Performed By: #### Shahla POOLE CMP, , 2776-04 ####[facility] ([id number])[address] [place] [address] Monocytes/100 WBC (Bld) 9.1 % Normal [facility] Comment on above: Performed By: #### Shahla POOLE, CMP, , 2776-04 ####[facility] ([id number])[address] [place] [address] Neutrophils/100 WBC (Bld) 57.5 % Normal [facility] Comment on above: Performed By: #### Shahla POOLE CMP, , 2776-04 ####[facility] ([id number])[address] [place] [address] Platelet mean volume (Bld) [Entitic vol] 8.9 fL Normal 7-12 [facility] Comment on above: Performed By: #### Shahla POOLE, CMP, , 2776-04 ####[facility] ([id number])[address] [place] [address] Platelets (Bld) [#/Vol] 328 10*3/uL Normal 150-450 [facility] Comment on above: Performed By: #### Shahla POOLE, CMP, , 2776-04 ####[facility] ([id number])[address] [place] [address] RBC COUNT 3.77 X10E12/L Low 3.80-5.20 [facility] Comment on above: Performed By: #### Shahla POOLE, CMP, , 2776-04 ####[facility] ([id number])[address] [place] [address] WBC (Bld) [#/Vol] 7.8 10*3/uL Normal 4.0-11.0 [place] Comment on above: Performed By: #### C BCA, CMP, , 2776- ####[facility] ([id number])[address] [place] [address] COMPREHENSIVE METABOLIC PANE Phu 10-18-2023 Albumin [Mass/Vol] 3.1 g/dL Low 3.2-5.3 [place] Comment on above: Performed By: #### C BCA, CMP, , 2776- ####[facility] ([id number])[address] [place] [address] ALP [Catalytic activity/Vol] 57 U/L Normal 39-130 [facility] Comment on above: Performed By: #### C BCA, CMP, , 2776-04 ####[facility] ([id number])[address] [place] [address]80 ALT [Catalytic activity/Vol] 10 U/L Normal 0-31 [facility] Comment on above: Performed By: #### C BCA, CMP, , 2776- ####[facility] ([id number])[address] [place] [address] Anion gap [Moles/Vol] 11 mmol/L Normal 5-15 [facility] Comment on above: Performed By: #### C BCA, CMP, , 2776- ####[facility] ([id number])[address] [place] [address] AST [Catalytic activity/Vol] 14 U/L Normal 0-41 [facility] Comment on above: Performed By: #### C BCA, CMP, , 2776- ####[facility] ([id number])[address] [place] [address] [place] [address] Bilirubin [Mass/Vol] 0.7 mg/dL Normal 0.3-1.2 [facility] Comment on above: Performed By: #### C VIRGILIO, CMP, , 2776-04 ####[facility] ([id number])[address] [place] [address] Calcium [Mass/Vol] 9.3 mg/dL Normal 8.5-10.5 [place] Comment on above: Performed By: #### C VIRGILIO, CMP, , 2776-04 ####[facility] ([id number])[address] [place] [address]47 Chloride [Moles/Vol] 97 mmol/L Low 98-109 [facility] Comment on above: Performed By: #### C VIRGILIO, CMP, , 2776-04 ####[facility] ([id number])[address] [place] [address] CO2 [Moles/Vol] 29 mmol/L Normal 22-32 [facility] Comment on above: Performed By: #### C VIRGILIO, CMP, , 2776-04 ####[facility] ([id number])[address] [place] [address] Creatinine [Mass/Vol] 2.98 mg/dL High 0.40-1.00 [facility] Comment on above: Result Comment: METH OD TRACEABLE TO IDMS STANDARD Performed By: #### C VIRGILIO, CMP, , 2776-04 ####[facility] ([id number])[address] [place] [address] GFR/1.73 sq M.predicted among non-blacks MDRD (S/P/Bld) [Vol rate/Area] 18 mL/min/{1.73_m2} Low >59 [facility] Comment on above: Result Comment: Reported eGFR is based on the CKD-EPI 2020 equation that does not use a race coefficient. Performed By: #### C EDEL POOLE, , 2776-04 ####[facility] ([id number])[address] [place] [address]57 Glucose [Mass/Vol] 92 mg/dL Normal 65-99 [place] Comment on above: Performed By: #### C EDEL POOLE, , 2776-04 ####[facility] ([id number])[address] [place] [address] Potassium [Moles/Vol] 4.2 mmol/L Normal 3.5-5.0 [facility] Comment on above: Performed By: #### C EDEL POOLE, , 2776-04 ####[facility] ([id number])[address] [place] [address]366 Protein [Mass/Vol] 6.0 g/dL Normal 6.0-8.0 [place] Comment on above: Performed By: #### C EDEL POOLE, , 2776-04 ####[facility] ([id number])[address] [place] [address]64 Sodium [Moles/Vol] 137 mmol/L Normal 134-146 [place] Comment on above: Performed By: #### C EDEL POOLE, , 2776-04 ####[facility] ([id number])[address] [place] [address]11 Urea nitrogen [Mass/Vol] 37 mg/dL High 5-23 [facility] Comment on above: Performed By: #### C EDEL POOLE, , 2776-04 ####[facility] ([id number])[address] [place] [address]23 Calcium.ionized (Bld) [Moles /Vol]on 10-18-2023 PORTABLE ICA 4.7 mg/dL Normal 4.5-5.3 [facility] Comment on above: Performed By: #### 8 9579-7 #### [facility] ([id number]) [address] [place] [address] 26965 MAGNESIUMon 10-18-2023 Magnesium [Mass/Vol] 2.0 mg/dL Normal 1.8-2.6 [facility] Comment on above: Performed By: #### C BCA, CMP, 50266-5, 2777-1 ####[facility] ([id number])[address] [place] [address] 03166 Myeloperoxidase IgG Qn (S)on 10-18-2023 Myeloperoxidase IgG >8.0 High <0.4 (Negative) [facility] Comment on above: Result Comment: NOTE Interpretation: Positive (>=1.0) Test Performed by: [facility] [place] [facility] [place] [address] [place] [address] Night Nurse: Ledy Son Ph.D.; CLIA# [id number] Performed By: #### 8 9579-7 #### [facility] ([id number]) [address] [place] [address] 99912 PHOSPHORUSon 10-18-2023 Phosphate [Mass/Vol] 5.1 mg/dL High 2.4-4.9 [facility] Comment on above: Performed By: #### C BCA, CMP, 16777-8, 2777-1 ####[facility] ([id number])[address] [place] [address] 07115 CBC AND AUTO DIFFon 10-17-19 ABSOLUTE BASOPHIL 0.1 X10E9/L Normal 0.0-0.2 [place] Comment on above: Performed By: #### C BCA, BMP, 86135-9, 64210-2, 65717-6 #### [facility] ([id number]) [address] [place] [address] 75410 ABSOLUTE NEUTROPHIL 4.9 X10E9/L Normal 1.5-6.6 [facility] Comment on above: Performed By: #### C VIRGILIO, BMP, , 87912-2, 27090-4 #### [facility] ([id number]) [address] [place] [address] 83015 Basophils/100 WBC (Bld) 0.7 % Normal [facility] Comment on above: Performed By: #### C VIRGILIO, BMP, , 41964-9, 70088-8 #### [facility] ([id number]) [address] [place] [address] 17510 Eosinophils (Bld) [#/Vol] 0.3 10*3/uL Normal 0.0-0.4 [facility] Comment on above: Performed By: #### C VIRGILIO, BMP, , 71079-5, 58022-4 #### [facility] ([id number]) [address] [place] [address] 82811 Eosinophils/100 WBC (Bld) 4.3 % Normal [facility] Comment on above: Performed By: #### C VIRGILIO, BMP, , 95284-1, 88891-8 #### [facility] ([id number]) [address] [place] [address] 83526 Erythrocyte distribution width (RBC) [Ratio] 14.7 % Normal 11.5-15.0 [facility] Comment on above: Performed By: #### C VIRGILIO, BMP, , 79661-1, 30862-6 #### [facility] ([id number]) [address] [place] [address] 48800 Hematocrit (Bld) [Volume fraction] 30.3 % Low 35-47 [facility] Comment on above: Performed By: #### C BCA, BMP, 75327-8, 76039-4, 44858-8 #### [facility] ([id number]) [address] [place] [address] 89965 Hemoglobin (Bld) [Mass/Vol] 10.1 g/dL Low 11.7-15.5 [facility] Comment on above: Performed By: #### C BCA, BMP, 77003-0, 72188-1, 39317-8 #### [facility] ([id number]) [address] [place] [address] 66610 Lymphocytes (Bld) [#/Vol] 1.9 10*3/uL Normal 1.0-3.5 [facility] Comment on above: Performed By: #### C BCA, BMP, 76646-8, 68326-9, 80411-4 #### [facility] ([id number]) [address] [place] [address] 16008 Lymphocytes/100 WBC (Bld) 24.6 % Normal [facility] Comment on above: Performed By: #### C BCA, BMP, 50818-5, 23598-4, 91289-9 #### [facility] ([id number]) [address] [place] [address] 95334 MCH (RBC) [Entitic mass] 27.9 pg Normal 27-34 [facility] Comment on above: Performed By: #### C BCA, BMP, 83495-7, 18090-9, 51216-1 #### [facility] ([id number]) [address] [place] [address] 29096 MCHC (RBC) [Mass/Vol] 33.4 g/dL Normal 32-36 [facility] Comment on above: Performed By: #### C BCA, BMP, 20412-8, 13912-3, 02699-0 #### [facility] ([id number]) [address] [place] [address] 99430 MCV (RBC) [Entitic vol] 84 fL Normal 80-100 [facility] Comment on above: Performed By: #### C VIRGILIO, BMP, 18207-5, 43920-5, 79694-6 #### [facility] ([id number]) [address] [place] [address] 85160 Monocytes (Bld) [#/Vol] 0.6 10*3/uL Normal 0-0.9 [facility] Comment on above: Performed By: #### C VIRGILIO, BMP, 23633-1, 64302-6, 12565-4 #### [facility] ([id number]) [address] [place] [address] 45729 Monocytes/100 WBC (Bld) 8.3 % Normal [facility] Comment on above: Performed By: #### Shahla POOLE, BMP, 30989-2, 56499-3, 38439-0 #### [facility] ([id number]) [address] [place] [address] 17973 Neutrophils/100 WBC (Bld) 62.1 % Normal [facility] Comment on above: Performed By: #### Shahla POOLE, BMP, 33810-9, 87000-5, 35161-9 #### [facility] ([id number]) [address] [place] [address] 80271 Platelet mean volume (Bld) [Entitic vol] 9.0 fL Normal 7-12 [facility] Comment on above: Performed By: #### Shahla BCA, BMP, 98511-9, 05185-4, 69344-4 #### [facility] ([id number]) [address] [place] [address] 94934 Platelets (Bld) [#/Vol] 278 10*3/uL Normal 150-450 [facility] Comment on above: Performed By: #### Shahla BCA, BMP, 24432-9, 24443-1, 12723-8 #### [facility] ([id number]) [address] [place] [address] 88834 RBC COUNT 3.62 X10E12/L Low 3.80-5.20 [facility] Comment on above: Performed By: #### C BCA, BMP, 74120-1, 85729-1, 55498-7 #### [facility] ([id number]) [address] [place] [address] 12750 WBC (Bld) [#/Vol] 7.9 10*3/uL Normal 4.0-11.0 [place] Comment on above: Performed By: #### C BCA, BMP, 17624-9, 42005-3, 33536-9 #### [facility] ([id number]) [address] [place] [address] 22415 COMPREHENSIVE METABOLIC PANE [facility] 10-17-2023 Albumin [Mass/Vol] 3.0 g/dL Low 3.2-5.3 [place] Comment on above: Performed By: #### C BCA, BMP, 21970-6, 21058-6, 52327-5 #### [facility] ([id number]) [address] [place] [address] 06447 ALP [Catalytic activity/Vol] 56 U/L Normal 39-130 [facility] Comment on above: Performed By: #### C BCA, BMP, 91734-4, 67899-1, 48765-4 #### [facility] ([id number]) [address] [place] [address] 93125 ALT [Catalytic activity/Vol] 10 U/L Normal 0-31 [facility] Comment on above: Performed By: #### C BCA, BMP, 96664-0, 36954-4, 52265-2 #### [facility] ([id number]) [address] [place] [address] 53624 Anion gap [Moles/Vol] 10 mmol/L Normal 5-15 [facility] Comment on above: Performed By: #### C BCA, BMP, 71395-9, 18779-8, 46026-8 #### [facility] ([id number]) [address] [place] [address] 31865 AST [Catalytic activity/Vol] 14 U/L Normal 0-41 [facility] Comment on above: Performed By: #### C BCA, BMP, 00606-3, 93232-7, 11288-6 #### [facility] ([id number]) [address] [place] [address] 60293 Bilirubin [Mass/Vol] 0.7 mg/dL Normal 0.3-1.2 [facility] Comment on above: Performed By: #### C BCA, BMP, 29538-1, 98441-3, 57376-6 #### [facility] ([id number]) [address] [place] [address] 46727 Calcium [Mass/Vol] 8.8 mg/dL Normal 8.5-10.5 [place] Comment on above: Performed By: #### C BCA, BMP, 37001-7, 73542-2, 74960-5 #### [facility] ([id number]) [address] [place] [address] 63499 Chloride [Moles/Vol] 101 mmol/L Normal 98-109 [facility] Comment on above: Performed By: #### C BCA, BMP, 67878-7, 09501-7, 19742-1 #### [facility] ([id number]) [address] [place] [address] 07430 CO2 [Moles/Vol] 28 mmol/L Normal 22-32 [facility] Comment on above: Performed By: #### C BCA, BMP, 99911-6, 79469-1, 93584-4 #### [facility] ([id number]) [address] [place] [address] 02845 Creatinine [Mass/Vol] 2.77 mg/dL High 0.40-1.00 [facility] Comment on above: Result Comment: METH OD TRACEABLE TO IDMS STANDARD Performed By: #### C BCA, BMP, 18327-0, 84388-3, 47666-9 #### [facility] ([id number]) [address] [place] [address] 26678 GFR/1.73 sq M.predicted among non-blacks MDRD (S/P/Bld) [Vol rate/Area] 19 mL/min/{1.73_m2} Low >59 [facility] Comment on above: Result Comment: Reported eGFR is based on the CKD-EPI 2020 equation that does not use a race coefficient. Performed By: #### C BCA, BMP, 57174-6, 06303-0, 13629-1 #### [facility] ([id number]) [address] [place] [address] 06921 Glucose [Mass/Vol] 97 mg/dL Normal 65-99 [facility] Comment on above: Performed By: #### C BCA, BMP, 05433-9, 82143-3, 45314-8 #### [facility] ([id number]) [address] [place] [address] 68541 Potassium [Moles/Vol] 3.6 mmol/L Normal 3.5-5.0 [facility] Comment on above: Performed By: #### C BCA, BMP, 63526-5, 64811-2, 59547-3 #### [facility] ([id number]) [address] [place] [address] 95695 Protein [Mass/Vol] 5.7 g/dL Low 6.0-8.0 [place] Comment on above: Performed By: #### C BCA, BMP, 48105-0, 64140-5, 10521-2 #### [facility] ([id number]) [address] [place] [address] 73793 Sodium [Moles/Vol] 139 mmol/L Normal 134-146 [place] Comment on above: Performed By: #### C BCA, BMP, 08824-2, 21668-4, 27728-1 #### [facility] ([id number]) [address] [place] [address] 51094 Urea nitrogen [Mass/Vol] 26 mg/dL High 5-23 [facility] Comment on above: Performed By: #### C BCA, BMP, , 16216-6, 64559-7 #### [facility] ([id number]) [address] [place] [address] 87724 Calcium.ionized (Bld) [Moles /Vol]on 10-17-2023 PORTABLE ICA 4.7 mg/dL Normal 4.5-5.3 [facility] Comment on above: Performed By: #### C BCA, BMP, 43757-7, 55657-9, 32948-9 #### [facility] ([id number]) [address] [place] [address] 08660 FECAL OCCULT BLOODon 024 Hemoglobin.gastrointe stinal Ql (Stl) Negative Normal NEG [facility] Comment on above: Performed By: #### 2 335-8 ####[facility] ([id number])[address] [place] [address] 39776 MAGNESIUMon 10-17-2023 Magnesium [Mass/Vol] 2.0 mg/dL Normal 1.8-2.6 [facility] Comment on above: Performed By: #### C BCA, BMP, 50691-8, 85861-3, 26738-8 #### [facility] ([id number]) [address] [place] [address] 03450 NM VENTILATION PERFUSION CHAZ G SCANon 10-17-2023 NM VENTILATION PERFUSION LUNG SCAN NM VENTILATION PERFUSION LUNG SCAN Clinical history:Elevated d-dimer and shortness of breath Radioisotope: 35.0 microcuries DTPA aerosol in nebulizer for the ventilation 5.0 millicuries technetium 99 MAA for the perfusion Findings: Comparison chest radiograph 10/14/2023 Central gas trapping consistent with chronic lung disease. Blunting of the costophrenic angles consistent with hypoventilation. No definite segmental or subsegmental perfusion defects. Impression: Very low probability for pulmonary embolus. Finalized by Tony Lowery MD on 10/17/2023 9:13 AM Normal [facility] PHOSPHORUSon 10-17-2023 Phosphate [Mass/Vol] 4.1 mg/dL Normal 2.4-4.9 [facility] Comment on above: Performed By: #### C VIRGILIO BMP, 29560-8, 48781-1, 85668-1 #### [facility] ([id number]) [address] [place] [address] 07603 POTASSIUMon 10-17-2023 Potassium [Moles/Vol] 4.2 mmol/L Normal 3.5-5.0 [facility] Comment on above: Performed By: #### 2 823-3 ####[facility] ([id number])[address] [place] [address] 98933 THYROID PROFILEon 10-17-2023 Free T4 [Mass/Vol] 1.19 ng/dL Normal 0.61-1.60 [place] Comment on above: Performed By: #### C BCA, BMP, 54863-9, 76664-0, 64497-3 #### [facility] ([id number]) [address] [place] [address] 67545 TSH 2.17 uIU/mL Normal 0.49-4.67 [facility] Comment on above: Performed By: #### C BCA, BMP, 08675-7, 81570-1, 68208-2 #### [facility] ([id number]) [address] [place] [address] 79196 24 HR URINE CREATININEon URINE CREATININE 1.38 g/24h Normal 0.80-1.80 [facility] Comment on above: Performed By: #### U CR, UPRO ####[facility] ([id number])[address], [place] [address] 24 HR URINE TOTAL PROTEINon 10-16-2023 URINE TOTAL PROTEIN 6380 mg/24h High 0-150 [facility] Comment on above: Performed By: #### U CR, UPRO ####[facility] ([id number])[address], [address], [place] [address] CBC AND AUTO DIFFon 10-16-19 24 ABSOLUTE BASOPHIL 0.0 X10E9/L Normal 0.0-0.2 [place] Comment on above: Performed By: #### C BCA, BMP, 23364-8, 33716-4, 84202-9 #### [facility] ([id number]) [address] [place] [address] 62139 ABSOLUTE NEUTROPHIL 4.9 X10E9/L Normal 1.5-6.6 [facility] Comment on above: Performed By: #### C BCA, BMP, 69713-9, 91067-7, 94489-5 #### [facility] ([id number]) [address] [place] [address] 64070 Basophils/100 WBC (Bld) 0.6 % Normal [facility] Comment on above: Performed By: #### C BCA, BMP, 68843-7, 85590-2, 61604-0 #### [facility] ([id number]) [address] [place] [address] 49338 Eosinophils (Bld) [#/Vol] 0.3 10*3/uL Normal 0.0-0.4 [facility] Comment on above: Performed By: #### C BCA, BMP, 30440-7, 56767-3, 52809-5 #### [facility] ([id number]) [address] [place] [address] 78471 Eosinophils/100 WBC (Bld) 4.2 % Normal [facility] Comment on above: Performed By: #### C BCA, BMP, 46580-7, 75732-0, 62126-3 #### [facility] ([id number]) [address] [place] [address] 87488 Erythrocyte distribution width (RBC) [Ratio] 14.8 % Normal 11.5-15.0 [facility] Comment on above: Performed By: #### C BCA, BMP, 34071-1, 77292-8, 90082-8 #### [facility] ([id number]) [address] [place] [address] 83706 Hematocrit (Bld) [Volume fraction] 28.5 % Low 35-47 [facility] Comment on above: Performed By: #### C BCA, BMP, 73383-9, 84830-3, 37921-5 #### [facility] ([id number]) [address] [place] [address] 89991 Hemoglobin (Bld) [Mass/Vol] 9.5 g/dL Low 11.7-15.5 [facility] Comment on above: Performed By: #### C BCA, BMP, 97331-2, 94552-8, 05032-0 #### [facility] ([id number]) [address] [place] [address] 23450 Lymphocytes (Bld) [#/Vol] 2.1 10*3/uL Normal 1.0-3.5 [facility] Comment on above: Performed By: #### Shahla BCA, BMP, 40732-8, 63769-4, 91166-0 #### [facility] ([id number]) [address] [place] [address] 06451 Lymphocytes/100 WBC (Bld) 26.6 % Normal [facility] Comment on above: Performed By: #### C VIRGILIO, BMP, 30304-7, 21447-3, 30245-4 #### [facility] ([id number]) [address] [place] [address] 07162 MCH (RBC) [Entitic mass] 27.7 pg Normal 27-34 [facility] Comment on above: Performed By: #### C VIRGILIO, BMP, 45742-4, 94530-8, 80222-4 #### [facility] ([id number]) [address] [place] [address] 08586 MCHC (RBC) [Mass/Vol] 33.6 g/dL Normal 32-36 [facility] Comment on above: Performed By: #### Shahla POOLE, BMP, , 01271-7, 65596-4 #### [facility] ([id number]) [address] [place] [address] 15257 MCV (RBC) [Entitic vol] 83 fL Normal 80-100 [facility] Comment on above: Performed By: #### Shahla POOLE, BMP, , 52252-2, 59709-4 #### [facility] ([id number]) [address] [place] [address] 78068 Monocytes (Bld) [#/Vol] 0.7 10*3/uL Normal 0-0.9 [facility] Comment on above: Performed By: #### Shalha POOLE, BMP, 97182-8, 90698-4, 68889-0 #### [facility] ([id number]) [address] [place] [address] 27373 Monocytes/100 WBC (Bld) 8.2 % Normal [facility] Comment on above: Performed By: #### Shahla BCA, BMP, 91167-8, 87085-8, 91054-2 #### [facility] ([id number]) [address] [place] [address] 39075 Neutrophils/100 WBC (Bld) 60.4 % Normal [facility] Comment on above: Performed By: #### C BCA, BMP, , 99867-2, 81808-9 #### [facility] ([id number]) [address] [place] [address] 14919 Platelet mean volume (Bld) [Entitic vol] 8.9 fL Normal 7-12 [facility] Comment on above: Performed By: #### C BCA, BMP, , 97929-4, 55638-5 #### [facility] ([id number]) [address] [place] [address] 72262 Platelets (Bld) [#/Vol] 252 10*3/uL Normal 150-450 [facility] Comment on above: Performed By: #### C BCA, BMP, , 64500-3, 92107-0 #### [facility] ([id number]) [address] [place] [address] 79308 RBC COUNT 3.45 X10E12/L Low 3.80-5.20 [facility] Comment on above: Performed By: #### Shahla BCA, BMP, , 28297-8, 77139-9 #### [facility] ([id number]) [address] [place] [address] 62770 WBC (Bld) [#/Vol] 8.0 10*3/uL Normal 4.0-11.0 [place] Comment on above: Performed By: #### C BCA, BMP, 96403-4, 86330-3, 69644-5 #### [facility] ([id number]) [address] [place] [address] 21970 COMPREHENSIVE METABOLIC PANE Phu 10-16-2023 Albumin [Mass/Vol] 2.7 g/dL Low 3.2-5.3 [place] Comment on above: Performed By: #### C BCA, BMP, 00045-0, 80269-7, 65048-4 #### [facility] ([id number]) [address] [place] [address] 91709 ALP [Catalytic activity/Vol] 55 U/L Normal 39-130 [facility] Comment on above: Performed By: #### C BCA, BMP, 33577-4, 64275-3, 00490-1 #### [facility] ([id number]) [address] [place] [address] 10072 ALT [Catalytic activity/Vol] 9 U/L Normal 0-31 [facility] Comment on above: Performed By: #### C BCA, BMP, 76791-0, 11213-4, 10064-0 #### [facility] ([id number]) [address] [place] [address] 74969 Anion gap [Moles/Vol] 8 mmol/L Normal 5-15 [facility] Comment on above: Performed By: #### C BCA, BMP, 03754-8, 62587-8, 28249-8 #### [facility] ([id number]) [address] [place] [address] 67027 AST [Catalytic activity/Vol] 13 U/L Normal 0-41 [facility] Comment on above: Performed By: #### C BCA, BMP, 97947-0, 13663-2, 15371-1 #### [facility] ([id number]) [address] [place] [address] 43497 Bilirubin [Mass/Vol] 0.4 mg/dL Normal 0.3-1.2 [facility] Comment on above: Performed By: #### C BCA, BMP, 07666-5, 07926-5, 32672-3 #### [facility] ([id number]) [address] [place] [address] 96045 Calcium [Mass/Vol] 8.4 mg/dL Low 8.5-10.5 [place] Comment on above: Performed By: #### C BCA, BMP, 77096-7, 35144-6, 36161-0 #### [facility] ([id number]) [address] [place] [address] 13942 Chloride [Moles/Vol] 101 mmol/L Normal 98-109 [facility] Comment on above: Performed By: #### C BCA, BMP, 05184-6, 23140-0, 43669-3 #### [facility] ([id number]) [address] [place] [address] 69422 CO2 [Moles/Vol] 28 mmol/L Normal 22-32 [facility] Comment on above: Performed By: #### C BCA, BMP, 29298-4, 06205-5, 52685-8 #### [facility] ([id number]) [address] [place] [address] 74904 Creatinine [Mass/Vol] 2.63 mg/dL High 0.40-1.00 [facility] Comment on above: Result Comment: METH OD TRACEABLE TO IDMS STANDARD Performed By: #### C BCA, BMP, 19732-5, 53131-9, 22323-9 #### [facility] ([id number]) [address] [place] [address] 77768 GFR/1.73 sq M.predicted among non-blacks MDRD (S/P/Bld) [Vol rate/Area] 20 mL/min/{1.73_m2} Low >59 [facility] Comment on above: Result Comment: Reported eGFR is based on the CKD-EPI 2020 equation that does not use a race coefficient. Performed By: #### C BCA, BMP, 41361-8, 76629-4, 24349-1 #### [facility] ([id number]) [address] [place] [address] 79068 Glucose [Mass/Vol] 107 mg/dL High 65-99 [place] Comment on above: Performed By: #### C BCA, BMP, , 53525-6, 32559-2 #### [facility] ([id number]) [address] [place] [address] 53638 Potassium [Moles/Vol] 3.2 mmol/L Low 3.5-5.0 [facility] Comment on above: Performed By: #### C BCA, BMP, , 43428-7, 48779-1 #### [facility] ([id number]) [address] [place] [address] 10551 Protein [Mass/Vol] 5.4 g/dL Low 6.0-8.0 [place] Comment on above: Performed By: #### C BCA, BMP, , 10591-6, 62763-5 #### [facility] ([id number]) [address] [place] [address] 54278 Sodium [Moles/Vol] 137 mmol/L Normal 134-146 [place] Comment on above: Performed By: #### C BCA, BMP, , 14071-6, 53778-3 #### [facility] ([id number]) [address] [place] [address] 40290 Urea nitrogen [Mass/Vol] 23 mg/dL Normal 5-23 [facility] Comment on above: Performed By: #### C BCA, BMP, , 87006-4, 95662-7 #### [facility] ([id number]) [address] [place] [address] 17539 Calcium.ionized (Bld) [Moles /Vol]on 10-16-2023 PORTABLE ICA 4.6 mg/dL Normal 4.5-5.3 [facility] Comment on above: Performed By: #### C BCA, BMP, 54004-6, 09152-5, 92337-8 #### [facility] ([id number]) [address] [place] [address], [place] [address] Clinical Pathologyon 024 Clinical Pathology Normal [place] Comment on above: Result Comment: [facility] [employer] [facility] [address] [place] [address] Clinical Pathology Report Patient Name:DANIELLE MONTANA:1965 (Age: 58)Gender:FTaken:10/16/2023eported:10/18/2023hysician(s):Irving Mujica MD ([phone])Copy To: Rec. 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 No monoclonal protein identified. Report Electronically Signed Out df/10/18/2023nicci Gomez MD Interpretation performed at [facility], [address] [place] [address], License number: [id number]. Clinical History D17.9, I16.0, E87.6. URINE PROTEIN ELECTROPHORESIS SAMPLE NUMBER: [id number] RELATIVE ELECTROPHORETIC CONCENTRATIONS (%) ? 100.0 Urine Protein 1410 mg/L (Electrophoretic gels and densitometric tracings on file in lab.) Specimen(s) Received Urine Protein Electrophoresis Fee Codes(s): 1; 17031-13 Fibrin D-dimer DDU (PPP) [Ma ss/Vol]on 10-16-2023 D DIMER 499 ng/mL DDU High <255 [facility] Comment on above: Result Comment: Results >=255ng/mL DDU: Results may be indicative of the presence of VTE. The use of the Wells score and further diagnostic tests should be considered. Elevated D-Dimer levels can also be associated with DIC, neoplasm, , trauma and liver disease. Elevated levels of rheumatoid factor may lead to an overestimation of the D-Dimer level. Performed By: #### C MARIO POOLE, 98707-8, 56657-9, 76135-7 #### [facility] ([id number]) [address] [place] [address] 90918 HGB A1C (GLYCO-HGB)on 2023 Glucose [Mass/Vol] 111 mg/dL Normal [place] Comment on above: Performed By: #### C MARIO POOLE, , 66498-4, 44119-8 #### [facility] ([id number]) [address] [place] [address] 30798 HbA1c (Bld) [Mass fraction] 5.5 % Normal 4.4-5.6 [facility] Comment on above: Result Comment: NOTE ADA Guidelines Result HgbA1c Normal : less than 5.7 % Prediabetes : 5.7 % to 6.4 % Diabetes : > 6.4 % Use with caution in patients with abnormal hemoglobin variants as the half-life of red blood cells and in vivo glycation rates are affected. Performed By: #### C MARIO POOLE, 22231-7, 72833-1, 85898-9 #### [facility] ([id number]) [address] [place] [address] 84410 MAGNESIUMon 10-16-2023 Magnesium [Mass/Vol] 2.1 mg/dL Normal 1.8-2.6 [facility] Comment on above: Performed By: #### C MARIO POOLE, 20118-8, 85577-3, 08574-8 #### [facility] ([id number]) [address] [place] [address] 82229 MICROALBUMIN - ALBUMIN:CREAT ININE URINE RATIOon 10-16-2023 ALB/CREAT RATIO 3392.0 mg/g creat High 0.0-30.0 [facility] Comment on above: Performed By: #### C BCA, BMP, , 98240-6, 98597-8 #### [facility] ([id number]) [address] [place] [address]1656 Albumin DL <= 20 mg/L (U) [Mass/Vol] 88.6 mg/dL High 0.0-1.9 [facility] Comment on above: Performed By: #### C BCA, BMP, , 98909-3, 48313-0 #### [facility] ([id number]) [address] [place] [address] 98360 URINE CREAT 26.12 mg/dL Normal [facility] Comment on above: Performed By: #### C VIRGILIO, BMP, , 44422-2, 66749-2 #### [facility] ([id number]) [address] [place] [address] 46703 PHOSPHORUSon 10-16-2023 Phosphate [Mass/Vol] 4.3 mg/dL Normal 2.4-4.9 [facility] Comment on above: Performed By: #### C BCA, BMP, , 57525-8, 84522-7 #### [facility] ([id number]) [address] [place] [address] 74183 POTASSIUMon 10-16-2023 Potassium [Moles/Vol] 4.8 mmol/L Normal 3.5-5.0 [facility] Comment on above: Result Comment: SPEC IMEN HEMOLYZED, RESULTS INCREASED Performed By: #### C BCA, BMP, , 88934-4, 34418-5 #### [facility] ([id number]) [address] [place] [address] 39300 PROTEIN CREAT RATIOon 2023 RANDOM URINE PROTEIN 1270 mg/L High <120 [facility] Comment on above: Performed By: #### C BCA, BMP, 75897-9, 86854-4, 00712-0 #### [facility] ([id number]) [address] [place] [address] 65602 U/PRO/GEOCHEMICAL MANAGER RATIO CALC 4.72 High <0.2 [facility] Comment on above: Result Comment: Neph rotic Syndrome is associated with ratios >3.5 Performed By: #### C BCA, BMP, 37788-9, 86513-9, 59381-8 #### [facility] ([id number]) [address] [place] [address] 33389 URINE CREATININE,RDM 26.92 mg/dL Normal [facility] Comment on above: Performed By: #### C BCA, BMP, 19001-8, 04423-3, 44976-2 #### [facility] ([id number]) [address] [place] [address] [place] [address] URINALYSISon 10-16-2023 Bilirubin Ql (U) Negative Normal NEG [facility] Comment on above: Performed By: #### C BCA, BMP, 20272-7, 48653-4, 95603-0 #### [facility] ([id number]) [address] [place] [address] 59868 BLOOD/HGB Large Abnormal NEG [facility] Comment on above: Performed By: #### C BCA, BMP, 98303-5, 01138-0, 81961-4 #### [facility] ([id number]) [address] [place] [address] 25522 Color (U) YELLOW Normal YELLOW [facility] Comment on above: Performed By: #### C BCA, BMP, 66522-8, 77464-0, 59277-4 #### [facility] ([id number]) [address] [place] [address] 70636 Glucose Ql (U) Negative Normal NEG [facility] Comment on above: Performed By: #### C VIRGILIO, BMP, 50521-8, 54627-2, 14198-5 #### [facility] ([id number]) [address] [place] [address] 32908 Ketones Ql (U) Negative Normal NEG [facility] Comment on above: Performed By: #### C VIRGILIO, BMP, 68106-0, 52577-0, 48128-9 #### [facility] ([id number]) [address] [place] [address] 83672 Leukocyte esterase Test strip Ql (U) Negative Normal NEG [facility] Comment on above: Performed By: #### C VIRGILIO, BMP, 21451-9, 89675-2, 89174-3 #### [facility] ([id number]) [address] [place] [address] 08521 Nitrite Ql (U) Negative Normal NEG [facility] Comment on above: Performed By: #### C VIRGILIO, BMP, 59496-1, 87052-4, 62895-3 #### [facility] ([id number]) [address] [place] [address] 86702 pH (U) 6.0 [pH] Normal 5.0-8.5 [facility] Comment on above: Performed By: #### C VIRGILIO, BMP, 14078-4, 86904-2, 36883-6 #### [facility] ([id number]) [address] [place] [address] 15673 Protein Ql (U) 100 mg/dL Abnormal NEG [facility] Comment on above: Performed By: #### C VIRGILIO, BMP, 77345-8, 17850-1, 25871-6 #### [facility] ([id number]) [address] [place] [address] 55268 R.B.CELLS 80 /hpf High 0-5 [facility] Comment on above: Performed By: #### C VIRGILIO, BMP, 37923-5, 21511-4, 58888-6 #### [facility] ([id number]) [address] [place] [address] 61755 Specific gravity (U) [Rel density] 1.015 Normal 1.003-1.035 [facility] Comment on above: Performed By: #### C BCA, BMP, 56878-5, 30029-7, 58193-4 #### [facility] ([id number]) [address] [place] [address] 06275 SQUAMOUS EPITHELIUM 2 /hpf Normal 0-[address] [facility] Comment on above: Performed By: #### C BCA, BMP, 15206-2, 30541-2, 24154-5 #### [facility] ([id number]) [address] [place] [address] 33992 TURBIDITY CLEAR Normal CLEAR [facility] Comment on above: Performed By: #### C VIRGILIO, BMP, , 98565-9, 36526-6 #### [facility] ([id number]) [address] [place] [address] 24002 Urobilinogen Qn (U) 0.2 {Micaela'U}/dL Normal <1.1 [facility] Comment on above: Performed By: #### C VIRGILIO, BMP, 81913-8, 47473-6, 11105-7 #### [facility] ([id number]) [address] [place] [address] 24611 W.B.CELLS 5 /hpf Normal 0-5 [facility] Comment on above: Performed By: #### C BCA, BMP, 14315-0, 94603-9, 19164-4 #### [facility] ([id number]) [address] [place] [address] 65631 URINE PROTEIN ELECTROPHORESI Son 10-16-2023 UPREL INTERP SEE SEPARATE REPORT Normal Pro [facility] URINE VOLUME AND TIMEon 09-23 TIME 24 h Normal [facility] Comment on above: Performed By: #### U CR, UPRO ####[facility] ([id number])[address], [place] [address] TOTAL VOLUME 4400 mL Normal [facility] Comment on above: Performed By: #### U CR, UPRO ####[facility] ([id number])[address], [place] [address] US RETROPERITONEAL COMPLETEo n 10-16-2023 US RETROPERITONEAL COMPLETE US RETROPERITONEAL COMPLETE US RETROPERITONEAL COMPLETE: 10/16/2023 9:06 AM Indication: 58 years old Female. acute renal failure. Check renal size. Rule out hydronephrosis.. Comparison: CT abdomen pelvis from 10/10/2019 FINDINGS: Right kidney measures 10.1 x 6.5 x 5.8 cm with a 10 mm cortex. No contour deforming lesion, shadowing stones or hydronephrosis. The left kidney measures 10.9 x 5.4 x 5.2 cm with a 12 mm cortex. No contour deforming lesion, shadowing stones or hydronephrosis. The urinary bladder is underdistended therefore incompletely evaluated however the urinary bladder volume is 57 cc's. Ureteral jets are not seen. IMPRESSION: 1. Urinary bladder is underdistended for incompletely evaluated with ureteral jets not seen. 2. Otherwise unremarkable renal ultrasound with measurements as above. Finalized by Maksim Unger MD on 10/16/2023 9:42 AM Normal [facility] Basement membrane IgG Qn (S) on 10-15-2023 Glomerular Base Memb IgG <0.2 Normal <1.0 (Negative) [facility] Comment on above: Result Comment: NOTE Test Performed by: [facility] [address] [place] [id number] Night Nurse: Ledy Son Ph.D.; CLIA# [id number] Performed By: #### C BCA, BMP, 50551-5, 82157-2, 84630-8 #### [facility] ([id number]) [address] [place] [address] 16340 CBC AND AUTO DIFFon 10-15-19 24 ABSOLUTE BASOPHIL 0.1 X10E9/L Normal 0.0-0.2 [place] Comment on above: Performed By: #### Shahla POOLE CMP, #### [facility] ([id number]) [address] [place] [address] 31806 ABSOLUTE NEUTROPHIL 6.8 X10E9/L High 1.5-6.6 [facility] Comment on above: Performed By: #### Shahla POOLE CMP, #### [facility] ([id number]) [address] [place] [address] 72364 Basophils/100 WBC (Bld) 0.7 % Normal [facility] Comment on above: Performed By: #### Shahla POOLE CMP, #### [facility] ([id number]) [address] [place] [address] 06904 Eosinophils (Bld) [#/Vol] 0.3 10*3/uL Normal 0.0-0.4 [facility] Comment on above: Performed By: #### Shahla POOLE CMP, #### [facility] ([id number]) [address] [place] [address] 93621 Eosinophils/100 WBC (Bld) 3.3 % Normal [facility] Comment on above: Performed By: #### Shahla POOLE, CMP, #### [facility] ([id number]) [address] [place] [address] 49162 Erythrocyte distribution width (RBC) [Ratio] 14.6 % Normal 11.5-15.0 [facility] Comment on above: Performed By: #### Shahla POOLE CMP, #### [facility] ([id number]) [address] [place] [address] 77402 Hematocrit (Bld) [Volume fraction] 30.1 % Low 35-47 [facility] Comment on above: Performed By: #### Shahla POOLE CMP, 67363-9 #### [facility] ([id number]) [address] [place] [address] 83648 Hemoglobin (Bld) [Mass/Vol] 10.0 g/dL Low 11.7-15.5 [facility] Comment on above: Performed By: #### Shahla POOLE CMP, #### [facility] ([id number]) [address] [place] [address] 11405 Lymphocytes (Bld) [#/Vol] 2.4 10*3/uL Normal 1.0-3.5 [facility] Comment on above: Performed By: #### Shahla POOLE CMP, #### [facility] ([id number]) [address] [place] [address] 19754 Lymphocytes/100 WBC (Bld) 23.7 % Normal [facility] Comment on above: Performed By: #### Shahla POOLE [facility], #### [facility] ([id number]) [address] [place] [address] 25711 MCH (RBC) [Entitic mass] 27.7 pg Normal 27-34 [facility] Comment on above: Performed By: #### Shahla POOLE CMP, #### [facility] ([id number]) [address] [place] [address] 71838 MCHC (RBC) [Mass/Vol] 33.1 g/dL Normal 32-36 [facility] Comment on above: Performed By: #### Shahla POOLE CMP, #### [facility] ([id number]) [address] [place] [address] 49300 MCV (RBC) [Entitic vol] 84 fL Normal 80-100 [facility] Comment on above: Performed By: #### C EDEL POOLE, 89559-6 #### [facility] ([id number]) [address] [place] [address] 55345 Monocytes (Bld) [#/Vol] 0.6 10*3/uL Normal 0-0.9 [facility] Comment on above: Performed By: #### C EDEL POOLE, #### [facility] ([id number]) [address] [place] [address] 39858 Monocytes/100 WBC (Bld) 5.5 % Normal [facility] Comment on above: Performed By: #### C EDEL POOLE, #### [facility] ([id number]) [address] [place] [address] 92730 Neutrophils/100 WBC (Bld) 66.8 % Normal [facility] Comment on above: Performed By: #### Shahla POOLE [facility], 31822-5 #### [facility] ([id number]) [address] [place] [address] 48664 Platelet mean volume (Bld) [Entitic vol] 9.0 fL Normal 7-12 [facility] Comment on above: Performed By: #### Shahla POOLE CMP, #### [facility] ([id number]) [address] [place] [address] 07738 Platelets (Bld) [#/Vol] 312 10*3/uL Normal 150-450 [facility] Comment on above: Performed By: #### Shahla POOLE CMP, #### [facility] ([id number]) [address] [place] [address] 19655 RBC COUNT 3.59 X10E12/L Low 3.80-5.20 [facility] Comment on above: Performed By: #### C BCA, CMP, #### [facility] ([id number]) [address] [place] [address] 25983 WBC (Bld) [#/Vol] 10.2 10*3/uL Normal 4.0-11.[address] [facility] Comment on above: Performed By: #### C BCA, CMP, #### [facility] ([id number]) [address] [place] [address] 96552 CK [Catalytic activity/Vol]o n 10-15-2023 CPK 82 U/L Normal 24-170 [facility] Comment on above: Performed By: #### C BCA, BMP, 40970-1, 64879-7, 15802-5 #### [facility] ([id number]) [address] [place] [address] 36098 COMPLEMENT PROFILEon 024 COMPLEMENT C3 113 mg/dL Normal 86-184 [facility] Comment on above: Performed By: #### C BCA, BMP, 05436-7, 60259-2, 70630-1 #### [facility] ([id number]) [address] [place] [address] 75911 COMPLEMENT C4 36 mg/dL Normal 16-47 [facility] Comment on above: Performed By: #### C BCA, BMP, 95622-8, 91389-7, 41730-2 #### [facility] ([id number]) [address] [place] [address] 18945 COMPREHENSIVE METABOLIC PANE Phu 10-15-2023 Albumin [Mass/Vol] 2.8 g/dL Low 3.2-5.3 [place] Comment on above: Performed By: #### C BCA, CMP, #### [facility] ([id number]) [address] [place] [address] 43660 ALP [Catalytic activity/Vol] 61 U/L Normal 39-130 [facility] Comment on above: Performed By: #### C BCA, CMP, #### [facility] ([id number]) [address] [place] [address] 15108 ALT [Catalytic activity/Vol] 10 U/L Normal 0-31 [facility] Comment on above: Performed By: #### C BCA, CMP, #### [facility] ([id number]) [address] [place] [address] 97333 Anion gap [Moles/Vol] 10 mmol/L Normal 5-15 [facility] Comment on above: Performed By: #### C BCA, CMP, #### [facility] ([id number]) [address] [place] [address] 18554 AST [Catalytic activity/Vol] 14 U/L Normal 0-41 [facility] Comment on above: Performed By: #### C BCA, CMP, #### [facility] ([id number]) [address] [place] [address] 20796 Bilirubin [Mass/Vol] 0.4 mg/dL Normal 0.3-1.2 [facility] Comment on above: Performed By: #### C BCA, CMP, #### [facility] ([id number]) [address] [place] [address] 54816 Calcium [Mass/Vol] 8.4 mg/dL Low 8.5-10.5 [place] Comment on above: Performed By: #### C BCA, CMP, #### [facility] ([id number]) [address] [place] [address] 86837 Chloride [Moles/Vol] 104 mmol/L Normal 98-109 [facility] Comment on above: Performed By: #### C BCA, CMP, #### [facility] ([id number]) [address] [place] [address] 58303 CO2 [Moles/Vol] 26 mmol/L Normal 22-32 [facility] Comment on above: Performed By: #### C EDEL POOLE, 01079-4 #### [facility] ([id number]) [address] [place] [address] 79163 Creatinine [Mass/Vol] 2.56 mg/dL High 0.40-1.00 [facility] Comment on above: Result Comment: METH OD TRACEABLE TO IDMS STANDARD Performed By: #### C EDEL POOLE, 00064-3 #### [facility] ([id number]) [address] [place] [address] 65483 GFR/1.73 sq M.predicted among non-blacks MDRD (S/P/Bld) [Vol rate/Area] 21 mL/min/{1.73_m2} Low >59 [facility] Comment on above: Result Comment: Reported eGFR is based on the CKD-EPI 2020 equation that does not use a race coefficient. Performed By: #### C EDEL POOLE, #### [facility] ([id number]) [address] [place] [address] 97213 Glucose [Mass/Vol] 103 mg/dL High 65-99 [place] Comment on above: Performed By: #### C EDEL POOLE, 86447-3 #### [facility] ([id number]) [address] [place] [address] 57581 Potassium [Moles/Vol] 3.2 mmol/L Low 3.5-5.0 [facility] Comment on above: Performed By: #### C EDEL POOLE, #### [facility] ([id number]) [address] [place] [address] 36755 Protein [Mass/Vol] 5.6 g/dL Low 6.0-8.0 [place] Comment on above: Performed By: #### C BCA, CMP, 90601-3 #### [facility] ([id number]) [address] [place] [address] 07407 Sodium [Moles/Vol] 140 mmol/L Normal 134-146 [place] Comment on above: Performed By: #### C BCA, CMP, 20438-4 #### [facility] ([id number]) [address] [place] [address] 41419 Urea nitrogen [Mass/Vol] 20 mg/dL Normal 5-23 [facility] Comment on above: Performed By: #### C BCA, CMP, 00083-1 #### [facility] ([id number]) [address] [place] [address] 06143 CRYOGLOBULIN WITH IDon 10-14 CRYOGLOBULIN, QUAL NEG 72HOUR Normal NEG 72Hour [place] Comment on above: Result Comment: NOTE This test was developed and its performance characteristics determined by [employer]. It has not been cleared or approved by the [place] Food and Drug Administration. This test was performed in a CLIA certified laboratory and is intended for clinical purposes. Performed By: [employer] [facility] [address] [place] [address] 71759 Freezer Worker: Hank Armstrong MD, PhD CLIA Number: [id number] Performed By: #### 8 9579-7 #### [facility] ([id number]) [address] [place] [address] 66482 Creatinine (U) [Mass/Vol]on 10-15-2023 URINE CREATININE,RDM 102.61 mg/dL Normal Pr [facility] Comment on above: Performed By: #### C BCA, BMP, 57482-5, 22315-0, 26280-6 #### [facility] ([id number]) [address] [place] [address] 67703 FERRITINon 10-15-2023 Ferritin [Mass/Vol] 45 ng/mL Normal 11-[address] [facility] Comment on above: Performed By: #### C BCA, BMP, 99774-9, 63748-7, 43837-2 #### [facility] ([id number]) [address] [place] [address] 28870 FREE LIGHT CHAINSon 10-15-19 24 FREE ANDREA/LAMBD RATIO 0.94 Normal 0.26-1.65 [facility] Comment on above: Performed By: #### C BCA, BMP, , 08373-8, 76984-8 #### [facility] ([id number]) [address] [place] [address] 66656 FREE KAPPA LT CHAINS 3.52 mg/dL High 0.33-1.94 [facility] Comment on above: Performed By: #### C VIRGILIO, BMP, , 81990-9, 45809-4 #### [facility] ([id number]) [address] [place] [address] 82578 FREE LAMBDA LT CHAINS 3.75 mg/dL High 0.57-2.63 [facility] Comment on above: Performed By: #### C VIRGILIO, BMP, , 47456-4, 92814-8 #### [facility] ([id number]) [address] [place] [address] 67342 Folate [Mass/Vol]on 10-15-19 24 FOLIC ACID 10.3 ng/mL Normal >5.8 [facility] Comment on above: Result Comment: NEW REFERENCE RANGE Performed By: #### C BCA, BMP, 35864-6, 49185-3, 79130-7 #### [facility] ([id number]) [address] [place] [address] 14140 HBV surface Ab IA Qnon 10-14 Anti HBs quant. <8.00 Normal [facility] Comment on above: Result Comment: Vacc inated: >=12mIU/mL, Positive (Immune) Unvaccinated: <8mIU/mL, Negative (Not Immune) 8-11.99 mIU/mL: Indeterminate, (Considered Not Immune) Performed By: #### C VIRGILIO, BMP, 34276-8, 01834-2, 75785-0 #### [facility] ([id number]) [address] [place] [address] HBV surface Ag IA Qlon 10-14 HEPATITIS B SURF AG Negative Normal NEG [facility] Comment on above: Performed By: #### C VIRGILIO, BMP, 63675-3, 66110-2, 14313-6 #### [facility] ([id number]) [address] [place] [address] 13889 HCV Ab IA Qlon 10-15-2023 ANTI HCV W/PCR REFLX Non-Reactive Normal NRCT Pr [facility] Comment on above: Result Comment: If recent infection suspected, recommend repeat testing (>2 months). Ogvmnl-zt-wkzlsn ratio is <0.80. Performed By: #### C VIRGILIO, MARIO, 40823-7, 31668-0, 46893-7 #### [facility] ([id number]) [address] [place] [address] 42934 HIV 1+2 Ab+HIV1 p24 Ag IA Ql on 10-15-2023 HIV 1 and 2 Ab/Ag Screen Non-Reactive Normal NRCT [facility] Comment on above: Result Comment: This information has been disclosed to you from confidential records protected from disclosure by state law. You shall make no further disclosure of this information without the specific, written and informed release of the individual to whom it pertains, or as otherwise permitted by state law. A general authorization for the release of medical or other information is not sufficient for the purpose of the release of HIV test results or diagnoses. Performed By: #### C VIRGILIO, BMP, 65484-7, 32034-0, 69037-6 #### [facility] ([id number]) [address] [place] [address] 87712 IRON PROFILEon 10-15-2023 Iron [Mass/Vol] 30 ug/dL Low 50-170 [facility] Comment on above: Performed By: #### C BCA, BMP, 31053-9, 25260-6, 69124-5 #### [facility] ([id number]) [address] [place] [address] 70631 IRON BINDING 218 ug/dL Low 250-425 [facility] Comment on above: Performed By: #### C BCA, BMP, , 49375-4, 67264-2 #### [facility] ([id number]) [address] [place] [address] 67159 IRON SATURATION 14 % SATURATION Low 15-50 [facility] Comment on above: Performed By: #### C BCA, BMP, 75516-6, 59845-6, 74536-4 #### [facility] ([id number]) [address] [place] [address] 29788 MAGNESIUMon 10-15-2023 Magnesium [Mass/Vol] 1.7 mg/dL Low 1.8-2.6 [facility] Comment on above: Performed By: #### C VIRGILIO, CMP, #### [facility] ([id number]) [address] [place] [address] 86872 Myeloperoxidase IgG Qn (S)on 10-15-2023 Myeloperoxidase IgG >8.0 High <0.4 (Negative) [facility] Comment on above: Result Comment: NOTE Interpretation: Positive (>=1.0) Test Performed by: [facility] [place] [address] [place] [address] Night Nurse: Ledy Son Ph.D.; CLIA# [id number] Performed By: #### C BCA, BMP, 54649-1, 97891-2, 36273-6 #### [facility] ([id number]) [address] [place] [address] 17059 Nuclear Ab IA Ql (S)on 10-14 SAUL Screen w/reflex Negative Normal NEG [facility] Comment on above: Result Comment: Testing performed using multiplex flow immunoassay. Eleven different antigens associated with systemic autoimmune diseases (dsDNA,Sm,Sm/AP[employer]EL SALES ASSOCIATE,APPAREL SALES ASSOCIATE,Chromatin, SSA,SSB,Yoly-1,Scl70,Ribo P,Centromere B) are included in this screening test. Performed By: #### C BCA, BMP, 97380-6, 12781-1, 76370-2 #### [facility] ([id number]) [address] [place] [address] 11403 POTASSIUMon 10-15-2023 Potassium [Moles/Vol] 3.5 mmol/L Normal 3.5-5.0 [facility] Comment on above: Performed By: #### C BCA, BMP, 80773-2, 85206-6, 53088-0 #### [facility] ([id number]) [address] [place] [address] 88627 Proteinase 3 IgG IA Qnon Proteinase 3 IgG 0.2 U Normal <0.4 (Negative) [facility] Comment on above: Result Comment: NOTE Test Performed by: [facility] [place] [facility] [place] [address] [place] [address] Night Nurse: Ledy Son Ph.D.; CLIA# [id number] Performed By: #### C BCA, BMP, 71506-7, 65790-7, 45387-1 #### [facility] ([id number]) [address] [place] [address] 31158 Rheumatoid factor Nephelomet ry Qn (S)on 10-15-2023 RHEUMATOID FACTOR 76 IU/mL High <20 [facility] Comment on above: Performed By: #### C BCA, BMP, 94177-3, 16116-5, 79829-0 #### [facility] ([id number]) [address] [place] [address] [id number] SERUM PROTEIN ELECTROPHORESI Son 10-15-2023 Albumin [Mass/Vol] 2.5 g/dL Low 3.4-5.3 [place] Comment on above: Performed By: #### C BCA, BMP, 81781-7, 43593-7, 66881-2 #### [facility] ([id number]) [address] [place] [address] 39423 ALPHA 1 GLOBULIN 0.4 g/dL Normal 0.1-0.4 [facility] Comment on above: Performed By: #### C BCA, BMP, , 69769-3, 32358-7 #### [facility] ([id number]) [address] [place] [address] 91249 ALPHA 2 GLOBULIN 0.9 g/dL Normal 0.4-1.1 [facility] Comment on above: Performed By: #### C BCA, BMP, 90773-3, 26331-0, 28510-6 #### [facility] ([id number]) [address] [place] [address] 62481 BETA GLOBULIN 0.5 g/dL Normal 0.5-1.2 [facility] Comment on above: Performed By: #### Shahla BCA, BMP, 72839-0, 35057-5, 85472-4 #### [facility] ([id number]) [address] [place] [address] 02485 GAMMA GLOBULIN 0.4 g/dL Low 0.5-1.6 [facility] Comment on above: Performed By: #### C BCA, BMP, 59877-8, 14046-3, 94354-2 #### [facility] ([id number]) [address] [place] [address] 27276 PROT. ELECTROPHORESIS INTERP Unremarkable protein distribution, no monoclonal bands. Normal [facility] Comment on above: Performed By: #### C BCA, BMP, 67645-7, 47749-9, 42414-9 #### [facility] ([id number]) [address] [place] [address] 42276 Protein [Mass/Vol] 4.7 g/dL Low 6.0-8.0 [facility] Comment on above: Performed By: #### C BCA, BMP, 32807-7, 09149-3, 14916-5 #### [facility] ([id number]) [address] [place] [address] 32351 URINALYSISon 10-15-2023 Bilirubin Ql (U) Negative Normal NEG [facility] Comment on above: Performed By: #### C BCA, BMP, 73494-7, 93558-6, 67123-1 #### [facility] ([id number]) [address] [place] [address] [place] [address] BLOOD/HGB Large Abnormal NEG [facility] Comment on above: Performed By: #### C BCA, BMP, 32735-9, 36358-4, 57141-3 #### [facility] ([id number]) [address] [place] [address] [place] [address] Color (U) YELLOW Normal YELLOW [facility] Comment on above: Performed By: #### C BCA, BMP, 99864-3, 37887-5, 64130-1 #### [facility] ([id number]) [address] [place] [address] [place] [address] Glucose Ql (U) Negative Normal NEG [facility] Comment on above: Performed By: #### C BCA, BMP, 87783-5, 93684-2, 99984-4 #### [facility] ([id number]) [address] [place] [address] 13444 Ketones Ql (U) Negative Normal NEG [facility] Comment on above: Performed By: #### C VIRGILIO, BMP, 88153-3, 96089-9, 73579-2 #### [facility] ([id number]) [address] [place] [address] 48414 Leukocyte esterase Test strip Ql (U) Negative Normal NEG [facility] Comment on above: Performed By: #### C VIRGILIO, BMP, 00098-6, 61677-3, 33097-9 #### [facility] ([id number]) [address] [place] [address] 18225 Nitrite Ql (U) Negative Normal NEG [facility] Comment on above: Performed By: #### C VIRGILIO, BMP, , 60989-6, 64877-1 #### [facility] ([id number]) [address] [place] [address] 63221 pH (U) 6.0 [pH] Normal 5.0-8.5 [facility] Comment on above: Performed By: #### C VIRGILIO, BMP, 09943-5, 62540-3, 34425-5 #### [facility] ([id number]) [address] [place] [address] 59734 Protein Ql (U) >300 Abnormal NEG [facility] Comment on above: Performed By: #### C VIRGILIO, BMP, 76952-7, 94077-4, 97326-2 #### [facility] ([id number]) [address] [place] [address] 92760 R.B.CELLS 30 /hpf High 0-5 [facility] Comment on above: Performed By: #### C VIRGILIO, BMP, , 47654-9, 30052-7 #### [facility] ([id number]) [address] [place] [address] 48577 Specific gravity (U) [Rel density] 1.025 Normal 1.003-1.035 [facility] Comment on above: Performed By: #### C BCA, BMP, 90464-9, 88985-4, 37332-7 #### [facility] ([id number]) [address] [place] [address] 10090 SQUAMOUS EPITHELIUM 6 /hpf High 0-[address] [facility] Comment on above: Performed By: #### C BCA, BMP, 19592-4, 41414-7, 75675-2 #### [facility] ([id number]) [address] [place] [address] 49977 TURBIDITY CLEAR Normal CLEAR [facility] Comment on above: Performed By: #### C BCA, BMP, , 12089-4, 63973-1 #### [facility] ([id number]) [address] [place] [address] 50630 Urobilinogen Qn (U) 0.2 {Micaela'U}/dL Normal <1.1 [facility] Comment on above: Performed By: #### C BCA, BMP, , 27916-6, 96447-5 #### [facility] ([id number]) [address] [place] [address] 84628 W.B.CELLS 10 /hpf High 0-5 [facility] Comment on above: Performed By: #### C BCA, BMP, 06674-6, 60632-7, 37052-0 #### [facility] ([id number]) [address] [place] [address] 40173 URINE SODIUM,RANDOMon 2023 Sodium (U) [Moles/Vol] 86 mmol/L Normal [facility] Comment on above: Performed By: #### C BCA, BMP, 40658-1, 81196-3, 90002-6 #### [facility] ([id number]) [address] [place] [address] 16284 VITAMIN B12on 10-15-2023 Cobalamin (Vitamin B12) [Mass/Vol] 159 pg/mL Low 180-914 [facility] Comment on above: Performed By: #### C BCA, BMP, 29308-7, 72244-1, 68309-8 #### [facility] ([id number]) [address] [place] [address] 32116 BASIC METABOLIC PANLon 10-13 Anion gap [Moles/Vol] 5 mmol/L Normal 5-15 [facility] Comment on above: Performed By: #### C BCA, BMP, , 25167-1, 02212-6 #### [facility] ([id number]) [address] [place] [address] 76654 Calcium [Mass/Vol] 8.1 mg/dL Low 8.5-10.5 [place] Comment on above: Performed By: #### C BCA, BMP, , 71838-3, 36476-2 #### [facility] ([id number]) [address] [place] [address] 49892 Chloride [Moles/Vol] 107 mmol/L Normal 98-109 [facility] Comment on above: Performed By: #### C BCA, BMP, , 97828-5, 95453-6 #### [facility] ([id number]) [address] [place] [address] 50320 CO2 [Moles/Vol] 27 mmol/L Normal 22-32 [facility] Comment on above: Performed By: #### C BCA, BMP, , 73451-2, 27703-1 #### [facility] ([id number]) [address] [place] [address] 81967 Creatinine [Mass/Vol] 2.56 mg/dL High 0.40-1.00 [facility] Comment on above: Result Comment: METH OD TRACEABLE TO IDMS STANDARD Performed By: #### C VIRGILIO, BMP, 64399-0, 08526-9, 36116-9 #### [facility] ([id number]) [address] [place] [address] 64904 GFR/1.73 sq M.predicted among non-blacks MDRD (S/P/Bld) [Vol rate/Area] 21 mL/min/{1.73_m2} Low >59 [facility] Comment on above: Result Comment: Reported eGFR is based on the CKD-EPI 2020 equation that does not use a race coefficient. Performed By: #### C VIRGILIO, BMP, 65286-3, 99006-2, 56571-1 #### [facility] ([id number]) [address] [place] [address] 87716 Glucose [Mass/Vol] 95 mg/dL Normal 65-99 [place] Comment on above: Performed By: #### C VIRGILIO, BMP, 33626-1, 86431-3, 60893-1 #### [facility] ([id number]) [address] [place] [address] 57513 Potassium [Moles/Vol] 3.1 mmol/L Low 3.5-5.0 [facility] Comment on above: Performed By: #### C VIRGILIO, MARIO, 26621-4, 70250-3, 29299-5 #### [facility] ([id number]) [address] [place] [address] 53540 Sodium [Moles/Vol] 139 mmol/L Normal 134-146 [place] Comment on above: Performed By: #### C VIRGILIO, BMP, 98609-6, 39907-4, 26817-6 #### [facility] ([id number]) [address] [place] [address] 20214 Urea nitrogen [Mass/Vol] 19 mg/dL Normal 5-23 [facility] Comment on above: Performed By: #### C VIRGILIO, BMP, 05752-2, 32207-2, 62436-3 #### [facility] ([id number]) [address] [place] [address] 10645 CBC AND AUTO DIFFon 10-14-19 24 ABSOLUTE BASOPHIL 0.1 X10E9/L Normal 0.0-0.2 [place] Comment on above: Performed By: #### C BCA, BMP, 14700-5, 50679-5, 38374-7 #### [facility] ([id number]) [address] [place] [address] 12976 ABSOLUTE NEUTROPHIL 5.7 X10E9/L Normal 1.5-6.6 [facility] Comment on above: Performed By: #### C BCA, BMP, 83153-4, 70809-3, 03788-0 #### [facility] ([id number]) [address] [place] [address] 85450 Basophils/100 WBC (Bld) 0.7 % Normal [facility] Comment on above: Performed By: #### C BCA, BMP, 35790-1, 93580-7, 68396-0 #### [facility] ([id number]) [address] [place] [address] 02395 Eosinophils (Bld) [#/Vol] 0.5 10*3/uL High 0.0-0.4 [facility] Comment on above: Performed By: #### C BCA, BMP, 22559-1, 12530-7, 63298-1 #### [facility] ([id number]) [address] [place] [address] 01285 Eosinophils/100 WBC (Bld) 4.9 % Normal [facility] Comment on above: Performed By: #### C BCA, BMP, 46813-4, 95755-6, 90716-4 #### [facility] ([id number]) [address] [place] [address] 83978 Erythrocyte distribution width (RBC) [Ratio] 14.6 % Normal 11.5-15.0 [facility] Comment on above: Performed By: #### C MARIO POOLE, , 61440-3, 06240-6 #### [facility] ([id number]) [address] [place] [address] 17996 Hematocrit (Bld) [Volume fraction] 33.2 % Low 35-47 [facility] Comment on above: Performed By: #### C MARIO POOLE, , 70859-8, 81595-0 #### [facility] ([id number]) [address] [place] [address] 60196 Hemoglobin (Bld) [Mass/Vol] 10.9 g/dL Low 11.7-15.5 [facility] Comment on above: Performed By: #### C MARIO POOLE, , 60536-5, 22147-8 #### [facility] ([id number]) [address] [place] [address] 34950 Lymphocytes (Bld) [#/Vol] 2.8 10*3/uL Normal 1.0-3.5 [facility] Comment on above: Performed By: #### MARIO Gale BCA, , 26646-4, 03641-8 #### [facility] ([id number]) [address] [place] [address] 15491 Lymphocytes/100 WBC (Bld) 28.7 % Normal [facility] Comment on above: Performed By: #### C VIRGILIO, BMP, , 73454-9, 25841-7 #### [facility] ([id number]) [address] [place] [address] 77317 MCH (RBC) [Entitic mass] 27.7 pg Normal 27-34 [facility] Comment on above: Performed By: #### C VIRGILIO, BMP, , 79212-4, 26828-4 #### [facility] ([id number]) [address] [place] [address] 23830 MCHC (RBC) [Mass/Vol] 32.9 g/dL Normal 32-36 [facility] Comment on above: Performed By: #### C VIRGILIO, BMP, , 00649-9, 14979-3 #### [facility] ([id number]) [address] [place] [address] 48465 MCV (RBC) [Entitic vol] 84 fL Normal 80-100 [facility] Comment on above: Performed By: #### C VIRGILIO, BMP, , 13970-7, 42803-7 #### [facility] ([id number]) [address] [place] [address] 81707 Monocytes (Bld) [#/Vol] 0.8 10*3/uL Normal 0-0.9 [facility] Comment on above: Performed By: #### C VIRGILIO, BMP, , 57012-6, 47599-1 #### [facility] ([id number]) [address] [place] [address] 18187 Monocytes/100 WBC (Bld) 8.1 % Normal [facility] Comment on above: Performed By: #### C VIRGILIO, BMP, , 17525-0, 36917-5 #### [facility] ([id number]) [address] [place] [address] 78249 Neutrophils/100 WBC (Bld) 57.6 % Normal [facility] Comment on above: Performed By: #### C BCA, BMP, , 00758-5, 31726-9 #### [facility] ([id number]) [address] [place] [address] 00597 Platelet mean volume (Bld) [Entitic vol] 8.9 fL Normal 7-12 [facility] Comment on above: Performed By: #### C VIRGILIO, BMP, , 05202-2, 14289-2 #### [facility] ([id number]) [address] [place] [address] 72750 Platelets (Bld) [#/Vol] 319 10*3/uL Normal 150-450 [facility] Comment on above: Performed By: #### C VIRGILIO, BMP, , 35981-5, 12942-0 #### [facility] ([id number]) [address] [place] [address] 79664 RBC COUNT 3.95 X10E12/L Normal 3.80-5.20 [facility] Comment on above: Performed By: #### Shahla POOLE, BMP, , 25794-5, 88014-3 #### [facility] ([id number]) [address] [place] [address] 91871 WBC (Bld) [#/Vol] 9.9 10*3/uL Normal 4.0-11.0 [place] Comment on above: Performed By: #### C VIRGILIO, BMP, , 70397-1, 86639-6 #### [facility] ([id number]) [address] [place] [address] 70648 MAGNESIUMon 10-14-2023 Magnesium [Mass/Vol] 1.8 mg/dL Normal 1.8-2.6 [facility] Comment on above: Performed By: #### C VIRGILIO, BMP, , 95965-9, 48064-2 #### [facility] ([id number]) [address] [place] [address] 95728 Natriuretic peptide B [Mass/ Vol]on 10-14-2023 Natriuretic peptide B (Bld) [Mass/Vol] 427 pg/mL High <100.0 [facility] Comment on above: Performed By: #### C VIRGILIO, MARIO, 65965-5, 85089-1, 77924-3 #### [facility] ([id number]) [address] [place] [address] 08468 Troponin I.cardiac High sens itivity method [Mass/Vol]on 10-14-2023 1 HOUR TROP I, HIGH SENSITIVITY 39 ng/L High <16 [facility] Comment on above: Result Comment: Elevations of hs-Troponin may be due to causes other than myocardial ischemia. Recommend serial hs-Troponin testing be performed. For the initial evaluation and management of chest pain patients, refer to the algorithms linked below. Emergency Patient: [email or web address] Inpatient: [email or web address] Performed By: #### 8 9579-7 #### [facility] ([id number]) [address] [place] [address] 75679 TROPONIN I, HIGH SENSITIVITY 39 ng/L High <16 [facility] Comment on above: Result Comment: Elevations of hs-Troponin may be due to causes other than myocardial ischemia. Recommend serial hs-Troponin testing be performed. For the initial evaluation and management of chest pain patients, refer to the algorithms linked below. Emergency Patient: [email or web address] Inpatient: [email or web address] Performed By: #### C VIRGILIO, MARIO, 10508-8, 76458-2, 37986-8 #### [facility] ([id number]) [address] [place] [address] 09389 XR CHEST 1 VWon 10-14-2023 XR CHEST 1 VW XR CHEST 1 VW Single view chest History: Difficulty breathing, shortness of breath Comparison: 01/01/2021 Impression: 1. Low lung volumes and hypoventilatory change, Central pulmonary vascular congestion without overt pulmonary edema. No sizable pleural effusion, no definite pneumothorax. 2. Borderline cardiomegaly. Finalized by Naren Morris MD on 10/14/2023 11:39 PM Normal [facility] ANTIBODY ID PANELon 01-03-20 ANTIBODY ID PANEL Antibody ID Anti-Jka Normal [facility] Comment on above: Performed By: #### C TABBY HSTROPN #### [facility] [address] [place] [address] Dr. Steve Valentin CBC AUTO DIFFon 12-31-2021 BASO # 0.0 103/ul Normal 0.0-0.1 [facility] Comment on above: Performed By: #### C TABBY HSTROPN #### [facility] [address] [place] [address] Dr. Steve Valentin Basophils/100 WBC (Bld) 0.9 % Normal 0.2-2.0 [facility] Comment on above: Performed By: #### C TABBY HSTROPN #### [facility] [address] [place] [address] Dr. Steve Valentin EO # 0.2 103/ul Normal 0.0-0.7 [facility] Comment on above: Performed By: #### C TABBY HSTROPN #### [facility] [address] [place] [address] Dr. Steve Valentin Eosinophils/100 WBC (Bld) 4.3 % Normal 0.9-7.0 [facility] Comment on above: Performed By: #### C TABBY HSTROPN #### [facility] [address] [place] [address] Dr. Steve Valentin Erythrocyte distribution width (RBC) [Ratio] 14.1 % Normal 11.0-15.0 [facility] Comment on above: Performed By: #### C TABBY HSTROPN #### [facility] [address] [place] [address] Dr. Steve Valentin Hematocrit (Bld) [Volume fraction] 34.6 % Critically low 36.0-48.0 [facility] Comment on above: Performed By: #### C MP, HSTROPN #### [facility] [address] [place] [address] Dr. Steve Valentin Hemoglobin (Bld) [Mass/Vol] 10.9 g/dL Critically low 12.0-16.0 [facility] Comment on above: Performed By: #### C MP, HSTROPN #### [facility] [address] [place] [address] Dr. Steve Valentin IG # 0.01 10e3/ul Normal 0.00-0.03 [facility] Comment on above: Performed By: #### C MP, HSTROPN #### [facility] [address] [place] [address] Dr. Steve Valentin IG % 0.3 % Normal 0.0-0.5 [facility] Comment on above: Performed By: #### C MP, HSTROPN #### [facility] [address] [place] [address] Dr. Steve Valentin LYMPH # 0.9 103/ul Critically low 1.2-3.8 [facility] Comment on above: Performed By: #### C MP, HSTROPN #### [facility] [address] [place] [address] Dr. Steve Valentin Lymphocytes/100 WBC (Bld) 26.3 % Normal 20.5-60.0 [facility] Comment on above: Performed By: #### C MP, HSTROPN #### [facility] [address] [place] [address] Dr. Steve Valentin MANUAL DIFF REQ NO Normal [facility] Comment on above: Performed By: #### C MP, HSTROPN #### [facility] [address] [place] [address] Dr. Steve Valentin MCH (RBC) [Entitic mass] 26.7 pg Normal 26.7-34.0 [facility] Comment on above: Performed By: #### C TABBY, HSTROPN #### [facility] [address] [place] [address] Dr. Steve Valentin MCHC (RBC) [Mass/Vol] 31.5 g/dL Normal 29.9-35.2 [facility] Comment on above: Performed By: #### C TABBY, HSTROPN #### [facility] [address] [place] [address] Dr. Steve Valentin MCV (RBC) [Entitic vol] 84.8 fL Normal 81.0-99.0 [facility] Comment on above: Performed By: #### C TABBY, HSTROPN #### [facility] [address] [place] [address] Dr. Steve Valentin MONO # 0.3 103/ul Normal 0.3-0.8 [facility] Comment on above: Performed By: #### C TABBY, HSTROPN #### [facility] [address] [place] [address] Dr. Steve aVlentin Monocytes/100 WBC (Bld) 9.5 % Normal 1.7-12.0 [facility] Comment on above: Performed By: #### C TABBY, HSTROPN #### [facility] [address] [place] [address] Dr. Steve Valentin NEUT # 2.0 103/ul Normal 1.4-6.5 [facility] Comment on above: Performed By: #### C TABBY, HSTROPN #### [facility] [address] [place] [address] Dr. Steve Valentin Neutrophils/100 WBC (Bld) 58.7 % Normal 43.0-75.0 [facility] Comment on above: Performed By: #### C TABBY, HSTROPN #### [facility] [address] [place] [address] Dr. Steve Valentin Platelet mean volume (Bld) [Entitic vol] 10.5 fL Normal 9.5-13.5 [facility] Comment on above: Performed By: #### C MP, HSTROPN #### [facility] [address] [address] [address] Steve Valentin PLT 164 103/ul Normal 150-450 [facility] Comment on above: Performed By: #### C MP, HSTROPN #### [facility] [address] [address] [address] Steve Valentin RBC 4.08 106/ul Critically low 4.20-5.40 [facility] Comment on above: Performed By: #### C MP, HSTROPN #### [facility] [address] [place] [address] Dr. Steve Valentin WBC 3.5 103/ul Critically low 4.0-11.0 [facility] Comment on above: Performed By: #### C MP, HSTROPN #### [facility] [address] [place] [address] Dr. tSeve Valentin PROF 14(COMP METB)on 022 Albumin [Mass/Vol] 3.0 g/dL Critically low 3.4-5.0 [facility] Comment on above: Performed By: #### C MP #### [facility] [address] [place] [address] Dr. Steve Valentin Albumin/Globulin [Mass ratio] 1.0 {ratio} Normal [facility] Comment on above: Performed By: #### C MP #### [facility] [address] [place] [address] Dr. Steve Valentin ALP [Catalytic activity/Vol] 56 U/L Normal 46-116 [facility] Comment on above: Performed By: #### C MP #### [facility] [address] [place] [address] Dr. Steve Valentin ALT [Catalytic activity/Vol] 20 U/L Normal 14-59 [facility] Comment on above: Performed By: #### C MP #### [facility] [address] [place] [address] Dr. Steve Valentin Anion gap [Moles/Vol] 9.3 mmol/L Normal [facility] Comment on above: Performed By: #### C MP #### [facility] [address] [address] [address] Steve Valentin AST [Catalytic activity/Vol] 17 U/L Normal 15-37 [facility] Comment on above: Performed By: #### C MP #### [facility] [address] [address] [address] Steve Valentin Bilirubin [Mass/Vol] 0.2 mg/dL Normal 0.2-1.0 [facility] Comment on above: Performed By: #### C MP #### [facility] [address] [address] [address] Steve Valentin Calcium [Mass/Vol] 8.8 mg/dL Normal 8.5-10.1 [facility] Comment on above: Performed By: #### C MP #### [facility] [address] [place] [address] Dr. Steve Valentin Chloride [Moles/Vol] 106 mmol/L Normal 98-107 [facility] Comment on above: Performed By: #### C MP #### [facility] [address] [address] [address] Steve Valentin CO2 [Moles/Vol] 26.5 mmol/L Normal 21.0-32.0 [facility] Comment on above: Performed By: #### C MP #### [facility] [address] [place] [address] Dr. Steve Valentin Creatinine [Mass/Vol] 0.92 mg/dL Normal 0.55-1.02 [facility] Comment on above: Performed By: #### C MP #### [facility] [address] [address] [address] Steve Valentin EGFR-AF GERMAN >60 Normal >=60 [facility] Comment on above: Performed By: #### C MP #### [facility] [address] [place] [address] Dr. Steve Valentin EGFR-NON AF GERMAN >60 Normal >=60 [facility] Comment on above: Performed By: #### C MP #### [facility] [address] [place] [address] Dr. Steve Valentin Globulin (S) [Mass/Vol] 2.9 g/dL Normal [facility] Comment on above: Performed By: #### C MP #### [facility] [address] [address] [address] Steve Valentin Glucose [Mass/Vol] 97 mg/dL Normal 74-106 [facility] Comment on above: Performed By: #### C MP #### [facility] [address] [address] [address] Steve Valentin Potassium [Moles/Vol] 3.8 mmol/L Normal 3.5-5.1 [facility] Comment on above: Performed By: #### C MP #### [facility] [address] [address] [address] Steve Valentin Protein [Mass/Vol] 5.9 g/dL Critically low 6.4-8.2 [facility] Comment on above: Performed By: #### C MP #### [facility] [address] [address] [address] Steve Valentin Sodium [Moles/Vol] 138 mmol/L Normal 136-145 [facility] Comment on above: Performed By: #### C MP #### [facility] [address] [address] [address] Steve Valentin Urea nitrogen [Mass/Vol] 5.0 mg/dL Critically low 7.0-18.0 [facility] Comment on above: Performed By: #### C MP #### [facility] [address] [address] [address] Steve Valentin Urea nitrogen/Creatinine [Mass ratio] 5.4 mg/mg Normal [facility] Comment on above: Performed By: #### C MP #### [facility] [address] [place] [address] Dr. Steve Valentin CBC AUTO DIFFon 12-30-2021 BASO # 0.0 103/ul Normal 0.0-0.1 [facility] Comment on above: Performed By: #### C BC #### [facility] [address] [place] [address] Dr. Steve Valentin Basophils/100 WBC (Bld) 0.5 % Normal 0.2-2.0 [facility] Comment on above: Performed By: #### C BC #### [facility] [address] [place] [address] Dr. Steve Valentin EO # 0.1 103/ul Normal 0.0-0.7 [facility] Comment on above: Performed By: #### C BC #### [facility] [address] [place] [address] Dr. Steve Valentin Eosinophils/100 WBC (Bld) 3.2 % Normal 0.9-7.0 [facility] Comment on above: Performed By: #### C BC #### [facility] [address] [place] [address] Dr. Steve Valentin Erythrocyte distribution width (RBC) [Ratio] 14.0 % Normal 11.0-15.0 [facility] Comment on above: Performed By: #### C BC #### [facility] [address] [place] [address] Dr. Steve Valentin Hematocrit (Bld) [Volume fraction] 38.3 % Normal 36.0-48.0 [facility] Comment on above: Performed By: #### C BC #### [facility] [address] [place] [address] Dr. Steve Valentin Hemoglobin (Bld) [Mass/Vol] 11.7 g/dL Critically low 12.0-16.0 [facility] Comment on above: Performed By: #### C BC #### [facility] [address] [place] [address] Dr. Steve Valentin IG # 0.01 10e3/ul Normal 0.00-0.03 [facility] Comment on above: Performed By: #### C BC #### [facility] [address] [place] [address] Dr. Steve Valentin IG % 0.2 % Normal 0.0-0.5 [facility] Comment on above: Performed By: #### C BC #### [facility] [address] [place] [address] Dr. Steve Valentin LYMPH # 1.3 103/ul Normal 1.2-3.8 [facility] Comment on above: Performed By: #### C BC #### [facility] [address] [place] [address] Dr. Steve Valentin Lymphocytes/100 WBC (Bld) 29.6 % Normal 20.5-60.0 [facility] Comment on above: Performed By: #### C BC #### [facility] [address] [place] [address] Dr. Steve Valentin MANUAL DIFF REQ NO Normal [facility] Comment on above: Performed By: #### C BC #### [facility] [address] [place] [address] Dr. Steve Valentin MCH (RBC) [Entitic mass] 26.0 pg Critically low 26.7-34.0 [facility] Comment on above: Performed By: #### C BC #### [facility] [address] [place] [address] Dr. Steve Valentin MCHC (RBC) [Mass/Vol] 30.5 g/dL Normal 29.9-35.2 [facility] Comment on above: Performed By: #### C BC #### [facility] [address] [place] [address] Dr. Steve Valentin MCV (RBC) [Entitic vol] 85.1 fL Normal 81.0-99.0 [facility] Comment on above: Performed By: #### C BC #### [facility] [address] [place] [address] Dr. Steve Valentin MONO # 0.5 103/ul Normal 0.3-0.8 [facility] Comment on above: Performed By: #### C BC #### [facility] [address] [place] [address] Dr. Steve Valentin Monocytes/100 WBC (Bld) 10.6 % Normal 1.7-12.0 [facility] Comment on above: Performed By: #### C BC #### [facility] [address] [place] [address] Dr. Steve Valentin NEUT # 2.4 103/ul Normal 1.4-6.5 [facility] Comment on above: Performed By: #### C BC #### [facility] [address] [place] [address] Dr. Steve Valentin Neutrophils/100 WBC (Bld) 55.9 % Normal 43.0-75.0 [facility] Comment on above: Performed By: #### C BC #### [facility] [address] [place] [address] Dr. Steve Valentin Platelet mean volume (Bld) [Entitic vol] 10.0 fL Normal 9.5-13.5 [facility] Comment on above: Performed By: #### C BC #### [facility] [address] [place] [address] Dr. Steve Valentin PLT 169 103/ul Normal 150-450 [facility] Comment on above: Performed By: #### C BC #### [facility] [address] [place] [address] Dr. Steve Valentin RBC 4.50 106/ul Normal 4.20-5.40 [facility] Comment on above: Performed By: #### C BC #### [facility] [address] [place] [address] Dr. Steve Valentin WBC 4.4 103/ul Normal 4.0-11.0 [facility] Comment on above: Performed By: #### C BC #### [facility] [address] [place] [address] Dr. Steve Valentin BASO # 0.0 103/ul Normal 0.0-0.1 [facility] Comment on above: Performed By: #### C BC #### [facility] [address] [place] [address] Dr. Steve Valentin Basophils/100 WBC (Bld) 0.4 % Normal 0.2-2.0 [facility] Comment on above: Performed By: #### C BC #### [facility] [address] [place] [address] Dr. Steve Valentin EO # 0.2 103/ul Normal 0.0-0.7 [facility] Comment on above: Performed By: #### C BC #### [facility] [address] [address] [address] Steve Valentin Eosinophils/100 WBC (Bld) 2.6 % Normal 0.9-7.0 [facility] Comment on above: Performed By: #### C BC #### [facility] [address] [place] [address] Dr. Steve Valentin Erythrocyte distribution width (RBC) [Ratio] 13.9 % Normal 11.0-15.0 [facility] Comment on above: Performed By: #### C BC #### [facility] [address] [place] [address] Dr. Steve Valentin Hematocrit (Bld) [Volume fraction] 39.1 % Normal 36.0-48.0 [facility] Comment on above: Performed By: #### C BC #### [facility] [address] [place] [address] Dr. Steve Valentin Hemoglobin (Bld) [Mass/Vol] 12.3 g/dL Normal 12.0-16.0 [facility] Comment on above: Performed By: #### C BC #### [facility] [address] [place] [address] Dr. Steve Valentin IG # 0.02 10e3/ul Normal 0.00-0.03 [facility] Comment on above: Performed By: #### C BC #### [facility] [address] [place] [address] Dr. Steve Valentin IG % 0.4 % Normal 0.0-0.5 [facility] Comment on above: Performed By: #### C BC #### [facility] [address] [place] [address] Dr. Steve Valentin LYMPH # 1.1 103/ul Critically low 1.2-3.8 [facility] Comment on above: Performed By: #### C BC #### [facility] [address] [place] [address] Dr. Steve Valentin Lymphocytes/100 WBC (Bld) 18.9 % Critically low 20.5-60.0 [facility] Comment on above: Performed By: #### C BC #### [facility] [address] [place] [address] Dr. Steve Valentin MANUAL DIFF REQ NO Normal [facility] Comment on above: Performed By: #### C BC #### [facility] [address] [place] [address] Dr. Steve Valentin MCH (RBC) [Entitic mass] 26.3 pg Critically low 26.7-34.0 [facility] Comment on above: Performed By: #### C BC #### [facility] [address] [place] [address] Dr. Steve Valentin MCHC (RBC) [Mass/Vol] 31.5 g/dL Normal 29.9-35.2 [facility] Comment on above: Performed By: #### C BC #### [facility] [address] [place] [address] Dr. Steve Valentin MCV (RBC) [Entitic vol] 83.7 fL Normal 81.0-99.0 [facility] Comment on above: Performed By: #### C BC #### [facility] [address] [place] [address] Dr. Steve Valentin MONO # 0.6 103/ul Normal 0.3-0.8 [facility] Comment on above: Performed By: #### C BC #### [facility] [address] [place] [address] Dr. Setve Valentin Monocytes/100 WBC (Bld) 10.0 % Normal 1.7-12.0 [facility] Comment on above: Performed By: #### C BC #### [facility] [address] [place] [address] Dr. Steve Valentin NEUT # 3.9 103/ul Normal 1.4-6.5 [facility] Comment on above: Performed By: #### C BC #### [facility] [address] [place] [address] Dr. Steve Valentin Neutrophils/100 WBC (Bld) 67.7 % Normal 43.0-75.0 [facility] Comment on above: Performed By: #### C BC #### [facility] [address] [address] [address] Steve Valentin Platelet mean volume (Bld) [Entitic vol] 10.0 fL Normal 9.5-13.5 [facility] Comment on above: Performed By: #### C BC #### [facility] [address] [address] [address] Steve Valentin PLT 200 103/ul Normal 150-450 [facility] Comment on above: Performed By: #### C BC #### [facility] [address] [address] [address] Steve Valentin RBC 4.67 106/ul Normal 4.20-5.40 [facility] Comment on above: Performed By: #### C BC #### [facility] [address] [place] [address] Dr. Steve Valentin WBC 5.7 103/ul Normal 4.0-11.0 [facility] Comment on above: Performed By: #### C BC #### [facility] [address] [place] [address] ABD/PELV W CONon [...] LO COSTA Date: 2021-12-30 08:30 Normal [facility] Covid-19 PCR (CVDTB)on SARS-CoV-2 (COVID-19) RNA RADHA+probe Ql (Unsp spec) Not detected Normal NOT DETECTED [facility] Comment on above: Result Comment: When [...] for this test is supported by the [place] of [employer] and Human Service's declaration that [...] longer be used). Performed By: #### C VDTBH #### [facility] [address] [address] [address] Steve Valentin DIRECT COOMBSon 12-30-2021 DIRECT AMARJIT Negative Normal [facility] Comment on above: Performed By: #### C MP, HSTROPN #### [facility] [address] [address] [address] Steve Valentin LACTATE/LACTIC ACIDon 2021 Lactate [Moles/Vol] 1.2 mmol/L Normal 0.4-1.9 [facility] Comment on above: Performed By: #### L ACT #### [facility] [address] [address] [address] Steve Valentin PROF 14(COMP METB)on 022 Albumin [Mass/Vol] 3.4 g/dL Normal 3.4-5.0 [facility] Comment on above: Performed By: #### C MP, HSTROPN #### [facility] [address] [address] [address] Steve Valentin Albumin/Globulin [Mass ratio] 1.1 {ratio} Normal [facility] Comment on above: Performed By: #### C MP, HSTROPN #### [facility] [address] [address] [address] Steve Valentin ALP [Catalytic activity/Vol] 66 U/L Normal 46-116 [facility] Comment on above: Performed By: #### C MP, HSTROPN #### [facility] [address] [address] [address] Steve Valentin ALT [Catalytic activity/Vol] 18 U/L Normal 14-59 [facility] Comment on above: Performed By: #### C MP, HSTROPN #### [facility] [address] [address] [address] Steve Valentin Anion gap [Moles/Vol] 9.1 mmol/L Normal [facility] Comment on above: Performed By: #### C MP, HSTROPN #### [facility] [address] [address] [address] Steve Valentin AST [Catalytic activity/Vol] 14 U/L Critically low 15-37 [facility] Comment on above: Performed By: #### C MP, HSTROPN #### [facility] [address] [address] [address] Steve Valentin Bilirubin [Mass/Vol] 0.3 mg/dL Normal 0.2-1.0 [facility] Comment on above: Performed By: #### C MP, HSTROPN #### [facility] [address] [address] [address] Steve Valentin Calcium [Mass/Vol] 9.2 mg/dL Normal 8.5-10.1 [facility] Comment on above: Performed By: #### C MP, HSTROPN #### [facility] [address] [address] [address] Steve Valentin Chloride [Moles/Vol] 104 mmol/L Normal 98-107 [facility] Comment on above: Performed By: #### C MP, HSTROPN #### [facility] [address] [place] [address] Dr. Steve Valentin CO2 [Moles/Vol] 25.5 mmol/L Normal 21.0-32.0 [facility] Comment on above: Performed By: #### C TABBY, HSTROPN #### [facility] [address] [place] [address] Dr. Steve Valentin Creatinine [Mass/Vol] 0.94 mg/dL Normal 0.55-1.02 [facility] Comment on above: Performed By: #### C TABBY, HSTROPN #### [facility] [address] [place] [address] Dr. Steve Valentin EGFR-AF GERMAN >60 Normal >=60 [facility] Comment on above: Performed By: #### C TABBY, HSTROPN #### [facility] [address] [place] [address] Dr. Steve Valentin EGFR-NON AF GERMAN >60 Normal >=60 [facility] Comment on above: Performed By: #### C TABBY, HSTROPN #### [facility] [address] [place] [address] Dr. Steve Valentin Globulin (S) [Mass/Vol] 3.1 g/dL Normal [facility] Comment on above: Performed By: #### C MP, HSTROPN #### [facility] [address] [place] [address] Dr. Steve Valentin Glucose [Mass/Vol] 98 mg/dL Normal 74-106 [facility] Comment on above: Performed By: #### C MP, HSTROPN #### [facility] [address] [place] [address] Dr. Steve Valentin Potassium [Moles/Vol] 3.6 mmol/L Normal 3.5-5.1 [facility] Comment on above: Performed By: #### C TABBY, HSTROPN #### [facility] [address] [address] [address] Steve Valentin Protein [Mass/Vol] 6.5 g/dL Normal 6.4-8.2 [facility] Comment on above: Performed By: #### C MP, HSTROPN #### [facility] [address] [place] [address] Dr. Steve Valentin Sodium [Moles/Vol] 135 mmol/L Critically low 136-145 [facility] Comment on above: Performed By: #### C TABBY, HSTROPN #### [facility] [address] [place] [address] Dr. Steve Valentin Urea nitrogen [Mass/Vol] 11.0 mg/dL Normal 7.0-18.0 [facility] Comment on above: Performed By: #### C TABBY, HSTROPN #### [facility] [address] [place] [address] Dr. Steve Valentin Urea nitrogen/Creatinine [Mass ratio] 11.7 mg/mg Normal [facility] Comment on above: Performed By: #### C MP, HSTROPN #### [facility] [address] [place] [address] Dr. Steve Valentin TROPONIN, HIGH SENSITIVITYon 12-30-2021 HSTROP 8.6 pg/mL Normal 4.0-51.3 [facility] Comment on above: Result Comment: CUT- OFF POINTS HAVE BEEN ESTABLISHED BASED ON THE FOURTH UNIVERSAL DEFINITIONS OF MYOCARDIAL INFARCTION. THE UPPER REFERENCE LIMIT (URL) OF TROPONIN, DEFINED THE 99TH PERCENTILE OF cTnI DISTRIBUTION IN A REFERENCE POPULATION, HAS BEEN CONFIRMED THE DECISION THRESHOLD FOR [place] DIAGNOSIS. Performed By: #### C MP, HSTROPN #### [facility] [address] [place] [address] Dr. Steve Valentin TYPE AND SCREENon 12-30-2021 TYPE AND SCREEN Positive Normal [facility] Comment on above: Performed By: #### T NS #### [facility] [address] [address] [address] Steve Valentin XR CERVICAL SPINE (2-3 [...] Yaritza Pinedo MD 01/20/20 Final result Normal [facility] Multilevel degenerative changes [place], [place] EXAMINATION: XRAY VIEWS OF THE CERVICAL [...] dislocation or significant prevertebral soft tissue swelling [facility] [place] Incoming Radiant Results From [employer] - 01/20/2020 11:34 AM EDT EXAMINATION: XRAY [...] soft tissue swelling IMPRESSION: Multilevel degenerative changes [place], [place] XR LUMBAR SPINE (2-3 VIEWS)o n 01-20-2020 [...] Mitesh Ho MD 01/20/20 Final result Normal [facility] No acute abnormality lumbosacral spine. Degenerative findings most severe at L5-S1, with evidence DDD. [place], [place] EXAMINATION: THREE XRAY VIEWS OF THE [...] Large amount of retained stool right colon. [place], [place], [employer] Incoming Radiant Results From [employer] - 01/20/2020 12:11 PM EDT EXAMINATION: THREE [...] most severe at L5-S1, with evidence DDD. [facility] Hematology[facility] 01-25-2018 Basophils Auto #/vol (Bld) 0.7 % Invalid Interpretation Code [facility] Basophils/100 WBC Auto (Bld) 0.0 K/uL Invalid Interpretation Code 0.0-0.1 [facility] Eosinophils/100 WBC Auto (Bld) 3.2 % Invalid Interpretation Code [facility] Erythrocyte distribution width Auto Ratio (RBC) 14.2 % Invalid Interpretation Code 10.8-14.8 [facility] Hematocrit Auto Volume Fraction (Bld) 34.70 % Invalid Interpretation Code 36.0-48.0 [facility] Hemoglobin S Solubility test Ql (Bld) 11.7 Invalid Interpretation Code 12.0-16.0 [facility] Lymphocytes/100 WBC Auto (Bld) 43.3 % Invalid Interpretation Code [facility] MCH Auto Entitic mass (RBC) 27.1 pg Invalid Interpretation Code 27.0-34.0 [facility] [employer] MCHC Auto mass conc (RBC) 33.7 g/dL Invalid Interpretation Code 31.0-36.0 [facility] MCV Auto Entitic volume (RBC) 80.5 fL Invalid Interpretation Code 80.-100. [facility] Monocytes/100 WBC Auto (Bld) 6.5 % Invalid Interpretation Code [facility] Neutrophils/100 WBC Auto (Bld) 46.1 % Invalid Interpretation Code [facility] Nucleated RBC/100 WBC Ratio (Bld) 0.1 10*3/uL Invalid Interpretation Code 0.1-0.4 [facility] Nucleated RBC/100 WBC Ratio (Bld) 1.9 10*3/uL Invalid Interpretation Code 0.8-5.2 [facility] Nucleated RBC/100 WBC Ratio (Bld) 0.3 10*3/uL Invalid Interpretation Code 0.1-0.9 [facility] Nucleated RBC/100 WBC Ratio (Bld) 2.0 10*3/uL Invalid Interpretation Code 1.3-9.1 [facility] RBC Auto #/vol (Bld) 4.310 10*6/uL Invalid Interpretation Code 4.00-5.50 [facility] Metabolic Panelon 01-25-2018 Albumin mass conc 4.10 g/dL Invalid Interpretation Code 3.5-5.2 [facility] ALP enzyme act/vol 50 U/L Invalid Interpretation Code 30-111 [facility] ALT enzyme act/vol 14 U/L Invalid Interpretation Code 5-40 [facility] Anion gap 3 molar conc 12 mmol/L Invalid Interpretation Code 10-19 [facility] AST enzyme act/vol 13 U/L Invalid Interpretation Code 9-40 [facility] Calcium mass conc 9.90 mg/dL Invalid Interpretation Code 8.5-10.5 [facility] Chloride molar conc 103 mmol/L Invalid Interpretation Code 95-107 [facility] CO2 molar conc 28 mmol/L Invalid Interpretation Code 19-31 [facility] Creatinine mass conc 1.0 mg/dL Invalid Interpretation Code 0.6-1.3 [facility] Glucose mass conc 89 mg/dL Invalid Interpretation Code 70-99 [facility] Potassium molar conc 4.30 mmol/L Invalid Interpretation Code 3.5-5.4 [facility] Protein mass conc 6.0 g/dL Invalid Interpretation Code 6.1-8.3 [facility] Protein mass conc 0.59 g/dL Invalid Interpretation Code <0.5 [facility] Sodium molar conc 143 mmol/L Invalid Interpretation Code 135-146 [facility] Urea nitrogen mass conc 14.0 mg/dL Invalid Interpretation Code 8-23 [facility] Otheron 01-25-2018 Bilirubin Ql (U) 0.2 Invalid Interpretation Code <1.3 [facility] WBC LM Ql (Sput) 4.4 Invalid Interpretation Code 3.7-10.8 [facility] 74.5 Invalid Interpretation Code >59 [facility] 237 Invalid Interpretation Code 150.-450. [facility] 15 Invalid Interpretation Code 0-30 [facility] 64.3 Invalid Interpretation Code >59 [facility] Thyroidon 01-25-2018 T4 free mass conc 1.140 ng/dL Invalid Interpretation Code 0.80-1.90 [facility] Thyrotropin Qn 1.750 uIU/mL Invalid Interpretation Code 0.400-4.100 [facility] Progress Noteon 10-23-2017 HIM IP Note OR [employer] Operator Forming Normal [facility] HIM IP Note OR [employer] Forming Normal [facility] Otheron 09-20-2017 3 Invalid Interpretation Code [facility] 3 Invalid Interpretation Code [facility] Cardiacon 09-14-2017 Cholesterol 220 mg/dL Invalid Interpretation Code <200 [facility] HDL Cholesterol 77.0 mg/dL Invalid Interpretation Code >39 [facility] Triglyceride 113.0 mg/dL Invalid Interpretation Code <150 [facility] Hematologyon 09-14-2017 Basophils Auto #/vol (Bld) 1.0 % Invalid Interpretation Code [facility] Basophils/100 WBC Auto (Bld) 0.1 K/uL Invalid Interpretation Code 0.0-0.1 [facility] Eosinophils/100 leukocytes 2.9 % Invalid Interpretation Code [facility] [employer] Erythrocyte distribution width Auto Ratio (RBC) 14.1 % Invalid Interpretation Code 10.8-14.8 [facility] [employer] Erythrocytes (RBC) 4.230 10*6/uL Invalid Interpretation Code 4.00-5.50 [facility] Hematocrit (HCT) 37.0 % Invalid Interpretation Code 36.0-48.0 [facility] Hemoglobin S presence 11.7 Invalid Interpretation Code 12.0-16.0 [facility] [employer] Lipoprotein a mass conc 0.2 10*3/uL Invalid Interpretation Code 0.1-0.4 [facility] Lipoprotein a mass conc 2.0 10*3/uL Invalid Interpretation Code 0.8-5.2 [facility] Lipoprotein a mass conc 0.5 10*3/uL Invalid Interpretation Code 0.1-0.9 [facility] Lipoprotein a mass conc 2.6 10*3/uL Invalid Interpretation Code 1.3-9.1 [facility] Lymphocytes/100 leukocytes 37.6 % Invalid Interpretation Code [facility] MCH 27.7 pg Invalid Interpretation Code 27.0-34.0 [facility] MCHC mass conc (RBC) 31.6 g/dL Invalid Interpretation Code 31.0-36.0 [facility] MCV 87.5 fL Invalid Interpretation Code 80.-100. [facility] Monocytes/100 leukocytes 8.8 % Invalid Interpretation Code [facility] Neutrophils/100 leukocytes 49.5 % Invalid Interpretation Code [facility] WBC (Leukocytes) 5.2 10*3/uL Invalid Interpretation Code 3.7-10.8 [facility] Otheron 09-14-2017 Cholesterol crystals Infrared spectroscopy Ql (Stone) 220 mg/dL Invalid Interpretation Code <200 [facility] [employer]: Cholesterol to HDL Ratio 2.9 {ratio} Invalid Interpretation Code <5 [facility] LDL to HDL Ratio 1.6 Invalid Interpretation Code <3.5 [facility] [employer] Lipoprotein.beta/Lipo protein.alpha mass ratio 1.6 Invalid Interpretation Code <3.5 [facility] [employer] PreB-LP SerPl-mCnc 23.0 mg/dL Invalid Interpretation Code <30 [facility] [employer] PreB-LP SerPl-mCnc 120.0 mg/dL Invalid Interpretation Code <130 [facility] WBC LM Ql (Sput) 5.2 Invalid Interpretation Code 3.7-10.8 [facility] 298 Invalid Interpretation Code 150.-450. [facility] Thyroidon 09-14-2017 Thyroid stimulating hormone (TSH) 2.270 uIU/mL Invalid Interpretation Code 0.40-4.10 [facility] Thyroxine (T4) free 0.990 ng/dL Invalid Interpretation Code 0.80-1.90 [facility] [employer] [facility] Vital Signs Date Time Vital Sign Value Performing Clinician Ni barnard 02-13-2018 13:08-0400 BMI (Body Mass Index) 56.47 kg/m2 [facility] 02-13-2018 13:08-0400 Body Temperature 98 [degF] [facility] 02-13-2018 13:08-0400 BP Diastolic 80 mm[Hg] [facility] 02-13-2018 13:08-0400 BP Systolic 124 mm[Hg] [facility] 02-13-2018 13:08-0400 BSA (Body Surface Area) 2.39 m2 [facility] 02-13-2018 13:08-0400 Height 153.67 cm [facility] 02-13-2018 13:08-0400 Pulse (Heart Rate) 74 /min [facility] 02-13-2018 13:08-0400 Pulse Oximetry 97 % [facility] 02-13-2018 13:08-0400 Respiratory Rate 20 /min [facility] 02-13-2018 13:08-0400 Weight 133.36 kg [facility] 02-13-2018 10:08-0400 Body height 153.67 cm [facility] Work Phone: [facility] Work Phone: 02-13-2018 10:08-0400 Body mass index (BMI) [Ratio] 56.5 kg/m2 [facility] Work Phone: [facility] Work Phone: 02-13-2018 10:08-0400 Body surface area Derived from formula 2.21 m2 Leda Agrawal CNP Work Phone: [facility] Work Phone: 02-13-2018 10:08-0400 Body temperature 98 [degF] Leda Agrawal CNP Work Phone: [facility] Work Phone: 02-13-2018 10:08-0400 Body weight 133.36 kg Leda Agrawal CNP Work Phone: [facility] Work Phone: 02-13-2018 10:08-0400 Diastolic blood pressure 80 mm[Hg] Leda Agrawal CNP Work Phone: [facility] Work Phone: 02-13-2018 10:08-0400 Heart rate 74 /min Leda Agrawal CNP Work Phone: [facility] Work Phone: 02-13-2018 10:08-0400 Respiratory rate 20 /min Leda Agrawal CNP Work Phone: [facility] Work Phone: 02-13-2018 10:08-0400 Systolic blood pressure 124 mm[Hg] Leda Agrawal CNP Work Phone: [facility] Work Phone: 01-25-2018 12:47-0400 BMI (Body Mass Index) 56.47 kg/m2 Leda Tanja [facility] 01-25-2018 12:47-0400 Body Temperature 98.4 [degF] Leda Tanja [facility] 01-25-2018 12:47-0400 BP Diastolic 82 mm[Hg] Leda Tanja [facility] 01-25-2018 12:47-0400 BP Systolic 122 mm[Hg] [facility] 01-25-2018 12:47-0400 BSA (Body Surface Area) 2.39 m2 Leda Agrawal [facility] 01-25-2018 12:47-0400 Height 153.67 cm Leda Tanja [facility] 01-25-2018 12:47-0400 Pulse (Heart Rate) 73 /min Leda Agrawal [facility] 01-25-2018 12:47-0400 Pulse Oximetry 96 % Leda Tanja [facility] 01-25-2018 12:47-0400 Respiratory Rate 18 /min Leda Tanja [facility] 01-25-2018 12:47-0400 Weight 133.36 kg Leda Tanja [facility] 01-25-2018 09:47-0400 Body height 153.67 cm Leda Agrawal NANOELECTRONICS ENGINEER Work Phone: [facility] Work Phone: 01-25-2018 09:47-0400 Body mass index (BMI) [Ratio] 56.5 kg/m2 Leda Agrawal CNP Work Phone: [facility] Work Phone: 01-25-2018 09:47-0400 Body surface area Derived from formula 2.21 m2 Leda Agrawal CNP Work Phone: [facility] Work Phone: 01-25-2018 09:47-0400 Body temperature 98.4 [degF] Leda Agrawal CNP Work Phone: [facility] Work Phone: 01-25-2018 09:47-0400 Body weight 133.36 kg Leda Agrawal CNP Work Phone: [facility] Work Phone: 01-25-2018 09:47-0400 Diastolic blood pressure 82 mm[Hg] Leda Agrawal CNP Work Phone: [facility] Work Phone: 01-25-2018 09:47-0400 Heart rate 73 /min Leda Agrawal NANOELECTRONICS ENGINEER Work Phone: [facility] Work Phone: 01-25-2018 09:47-0400 Respiratory rate 18 /min Leda Agrawal CNP Work Phone: [facility] Work Phone: 01-25-2018 09:47-0400 Systolic blood pressure 122 mm[Hg] Leda Agrawal CNP Work Phone: [facility] Work Phone: 11-14-2017 18:20-0400 BMI (Body Mass Index) 56.47 kg/m2 [facility] 11-14-2017 18:20-0400 Body Temperature 97.4 [degF] [facility] 11-14-2017 18:20-0400 BP Diastolic 80 mm[Hg] [facility] 11-14-2017 18:20-0400 BP Systolic 130 mm[Hg] [facility] 11-14-2017 18:20-0400 BSA (Body Surface Area) 2.39 m2 [facility] 11-14-2017 18:20-0400 Height 153.67 cm [facility] 11-14-2017 18:20-0400 Pulse (Heart Rate) 96 /min [facility] 11-14-2017 18:20-0400 Pulse Oximetry 95 % [facility] 11-14-2017 18:20-0400 Respiratory Rate 18 /min Leda Agrawal [facility] 11-14-2017 18:20-0400 Weight 133.36 kg Leda Agrawal [facility] 11-14-2017 15:20-0400 Body height 153.67 cm Leda Agrawal CNP Work Phone: [facility] Work Phone: 11-14-2017 15:20-0400 Body mass index (BMI) [Ratio] 56.5 kg/m2 Leda Agrawal CNP Work Phone: [facility] Work Phone: 11-14-2017 15:20-0400 Body surface area Derived from formula 2.21 m2 Leda Agrawal CNP Work Phone: [facility] Work Phone: 11-14-2017 15:20-0400 Body temperature 97.4 [degF] Leda Agrawal CNP Work Phone: [facility] Work Phone: 11-14-2017 15:20-0400 Body weight 133.36 kg Leda Agrawal CNP Work Phone: [facility] Work Phone: 11-14-2017 15:20-0400 Diastolic blood pressure 80 mm[Hg] Leda Agrawal CNP Work Phone: [facility] Work Phone: 11-14-2017 15:20-0400 Heart rate 96 /min Leda Agrawal CNP Work Phone: [facility] Work Phone: 11-14-2017 15:20-0400 Respiratory rate 18 /min Leda Agrawal CNP Work Phone: [facility] Work Phone: 11-14-2017 15:20-0400 Systolic blood pressure 130 mm[Hg] Leda Agrawal CNP Work Phone: [facility] Work Phone: 10-12-2017 11:11-0400 BMI (Body Mass Index) 57.12 kg/m2 [facility] 10-12-2017 11:11-0400 Body Temperature 98.8 [degF] [facility] 10-12-2017 11:11-0400 BP Diastolic 83 mm[Hg] [facility] 10-12-2017 11:11-0400 BP Systolic 122 mm[Hg] [facility] 10-12-2017 11:11-0400 BSA (Body Surface Area) 2.4 m2 [facility] 10-12-2017 11:11-0400 Height 153.67 cm [facility] 10-12-2017 11:11-0400 Pulse (Heart Rate) 79 /min [facility] 10-12-2017 11:11-0400 Pulse Oximetry 99 % [facility] 10-12-2017 11:11-0400 Respiratory Rate 18 /min [facility] 10-12-2017 11:11-0400 Weight 134.89 kg [facility] 10-12-2017 10:11-0400 BMI (Body Mass Index) 57.12 kg/m2 [facility] 10-12-2017 10:11-0400 Body Temperature 98.8 [degF] [facility] 10-12-2017 10:11-0400 BP Diastolic 83 mm[Hg] [facility] Tanja [facility] 10-12-2017 10:11-0400 BP Systolic 122 mm[Hg] [facility] 10-12-2017 10:11-0400 BSA (Body Surface Area) 2.4 m2 [facility] 10-12-2017 10:11-0400 Height 153.67 cm [facility] 10-12-2017 10:11-0400 Pulse (Heart Rate) 79 /min [facility] 10-12-2017 10:11-0400 Pulse Oximetry 99 % [facility] 10-12-2017 10:11-0400 Respiratory Rate 18 /min [facility] 10-12-2017 10:11-0400 Weight 134.89 kg [facility] 10-12-2017 08:11-0400 Body height 153.67 cm Leda Agrawal [facility] Work Phone: [facility] Work Phone: 10-12-2017 08:11-0400 Body mass index (BMI) [Ratio] 57 kg/m2 Leda Agrawal [facility] Work Phone: [facility] Work Phone: 10-12-2017 08:11-0400 Body surface area Derived from formula 2.22 m2 Leda Agrawal [facility] Work Phone: [facility] Work Phone: 10-12-2017 08:11-0400 Body temperature 98.8 [degF] Leda Agrawal [facility] Work Phone: [facility] Work Phone: 10-12-2017 08:11-0400 Body weight 134.72 kg Leda Agrawal CNP Work Phone: [facility] Work Phone: 10-12-2017 08:11-0400 Diastolic blood pressure 83 mm[Hg] Leda Agrawal CNP Work Phone: [facility] Work Phone: 10-12-2017 08:11-0400 Heart rate 79 /min Leda Agrawal CNP Work Phone: [facility] Work Phone: 10-12-2017 08:11-0400 Respiratory rate 18 /min Leda Agrawal CNP Work Phone: [facility] Work Phone: 10-12-2017 08:11-0400 Systolic blood pressure 122 mm[Hg] Leda Agrawal CNP Work Phone: [facility] Work Phone: 09-20-2017 17:04-0400 BP Diastolic 80 mm[Hg] [facility] 09-20-2017 17:04-0400 BP Systolic 136 mm[Hg] [facility] 09-20-2017 16:19-0400 BMI (Body Mass Index) 59.21 kg/m2 [facility] 09-20-2017 16:19-0400 Body Temperature 97.1 [degF] [facility] 09-20-2017 16:19-0400 BP Diastolic 80 mm[Hg] [facility] 09-20-2017 16:19-0400 BP Systolic 142 mm[Hg] [facility] 09-20-2017 16:19-0400 BSA (Body Surface Area) 2.44 m2 [facility] 09-20-2017 16:19-0400 Height 153.67 cm [facility] 09-20-2017 16:19-0400 Pulse (Heart Rate) 94 /min [facility] 09-20-2017 16:19-0400 Pulse Oximetry 96 % [facility] 09-20-2017 16:19-0400 Respiratory Rate 18 /min [facility] 09-20-2017 16:19-0400 Weight 139.82 kg [facility] 09-20-2017 16:04-0400 BP Diastolic 80 mm[Hg] [facility] 09-20-2017 16:04-0400 BP Systolic 136 mm[Hg] [facility] 09-20-2017 15:19-0400 BMI (Body Mass Index) 59.21 kg/m2 [facility] 09-20-2017 15:19-0400 Body Temperature 97.1 [degF] [facility] 09-20-2017 15:19-0400 BP Diastolic 80 mm[Hg] [facility] 09-20-2017 15:19-0400 BP Systolic 142 mm[Hg] [facility] 09-20-2017 15:19-0400 BSA (Body Surface Area) 2.44 m2 [facility] 09-20-2017 15:19-0400 Height 153.67 cm [facility] 09-20-2017 15:19-0400 Pulse (Heart Rate) 94 /min Leda Agrawal [facility] 09-20-2017 15:19-0400 Pulse Oximetry 96 % 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 [facility] 09-20-2017 15:19-0400 Respiratory Rate 18 /min Leda Agrawal [facility] 09-20-2017 15:19-0400 Weight 139.82 kg 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 [facility] 09-20-2017 14:04-0400 Diastolic blood pressure 80 mm[Hg] Leda Agrawal CNP Work Phone: [facility] Work Phone: 09-20-2017 14:04-0400 Systolic blood pressure 136 mm[Hg] Leda Agrawal CNP Work Phone: [facility] Work Phone: 09-20-2017 13:19-0400 Body height 153.67 cm Leda Agrawal CNP Work Phone: [facility] Work Phone: 09-20-2017 13:19-0400 Body mass index (BMI) [Ratio] 59.2 kg/m2 Leda Agrawal CNP Work Phone: [facility] Work Phone: 09-20-2017 13:19-0400 Body surface area Derived from formula 2.26 m2 Leda Agrawal CNP Work Phone: [facility] Work Phone: 09-20-2017 13:19-0400 Body temperature 97.1 [degF] Leda Agrawal CNP Work Phone: [facility] Work Phone: 09-20-2017 13:19-0400 Body weight 139.71 kg Leda Agrawal CNP Work Phone: [facility] Work Phone: 09-20-2017 13:19-0400 Diastolic blood pressure 80 mm[Hg] Leda Agrawal NANOELECTRONICS ENGINEER Work Phone: [facility] Work Phone: 09-20-2017 13:19-0400 Heart rate 94 /min Leda Agrawal NANOELECTRONICS ENGINEER Work Phone: [facility] Work Phone: 09-20-2017 13:19-0400 Respiratory rate 18 /min Leda Agrawal CNP Work Phone: [facility] Work Phone: 09-20-2017 13:19-0400 Systolic blood pressure 142 mm[Hg] Leda Agrawal CNP Work Phone: [facility] Work Phone: 09-14-2017 12:35-0400 BMI (Body Mass Index) 59.76 kg/m2 [facility] 09-14-2017 12:35-0400 Body Temperature 97 [degF] [facility] 09-14-2017 12:35-0400 BP Diastolic 72 mm[Hg] [facility] 09-14-2017 12:35-0400 BP Systolic 122 mm[Hg] [facility] 09-14-2017 12:35-0400 BSA (Body Surface Area) 2.45 m2 [facility] 09-14-2017 12:35-0400 Height 153.67 cm [facility] 09-14-2017 12:35-0400 Pulse (Heart Rate) 71 /min [facility] 09-14-2017 12:35-0400 Pulse Oximetry 97 % [facility] 09-14-2017 12:35-0400 Respiratory Rate 18 /min [facility] 09-14-2017 12:35-0400 Weight 141.13 kg [facility] 09-14-2017 11:35-0400 BMI (Body Mass Index) 59.76 kg/m2 [facility] 09-14-2017 11:35-0400 Body Temperature 97 [degF] [facility] 09-14-2017 11:35-0400 BP Diastolic 72 mm[Hg] [facility] 09-14-2017 11:35-0400 BP Systolic 122 mm[Hg] [facility] 09-14-2017 11:35-0400 BSA (Body Surface Area) 2.45 m2 [facility] 09-14-2017 11:35-0400 Height 153.67 cm [facility] 09-14-2017 11:35-0400 Pulse (Heart Rate) 71 /min [facility] 09-14-2017 11:35-0400 Pulse Oximetry 97 % [facility] 09-14-2017 11:35-0400 Respiratory Rate 18 /min [facility] 09-14-2017 11:35-0400 Weight 141.13 kg [facility] 09-14-2017 09:35-0400 Body height 153.67 cm [facility] Work Phone: [facility] Work Phone: 09-14-2017 09:35-0400 Body mass index (BMI) [Ratio] 59.7 kg/m2 Leda Agrawal CNP Work Phone: [facility] Work Phone: 09-14-2017 09:35-0400 Body surface area Derived from formula 2.27 m2 Leda Agrawal CNP Work Phone: [facility] Work Phone: 09-14-2017 09:35-0400 Body temperature 97 [degF] Leda Agrawal CNP Work Phone: [facility] Work Phone: 09-14-2017 09:35-0400 Body weight 141.07 kg Leda Agrawal CNP Work Phone: [facility] Work Phone: 09-14-2017 09:35-0400 Diastolic blood pressure 72 mm[Hg] Leda Agrawal CNP Work Phone: [facility] Work Phone: 09-14-2017 09:35-0400 Heart rate 71 /min Leda Agrawal CNP Work Phone: [facility] Work Phone: 09-14-2017 09:35-0400 Respiratory rate 18 /min Leda Agrawal CNP Work Phone: [facility] Work Phone: 09-14-2017 09:35-0400 Systolic blood pressure 122 mm[Hg] Leda Agrawal CNP Work Phone: [facility] Work Phone: Encounters Encounter Date Encounter Type Care Provider Facility Start: 01-12-2024 End: 01-12-2024 ambulatory WANDA FITZPATRICK [facility] Start: 12-19-2023 End: 12-19-2023 ambulatory ELIZABETH ALANIS [facility] Start: 11-29-2023 End: 11-29-2023 ambulatory SHAWN ZAMORA [facility] Start: 11-09-2023 End: 11-09-2023 [facility] Start: 11-07-2023 End: 11-07-2023 [facility] Start: 11-07-2023 End: 11-07-2023 ambulatory RASHAAD APODACA [facility] Start: 11-02-2023 End: 11-02-2023 ambulatory SHAWN ZAMORA [facility] Start: 11-02-2023 End: 11-02-2023 ambulatory JHONY Not Available Start: 10-20-2023 End: 10-25-2023 Evaluation and management of inpatient WANDA Shields [facility] Start: 10-18-2023 End: 10-25-2023 Evaluation and management of inpatient [facility] Start: 10-14-2023 End: 10-19-2023 Emergency department patient visit MARCOMARVINBetty TORRES [facility] Start: 10-14-2023 End: 10-18-2023 Evaluation and management of inpatient NOT IN [facility] Start: 04-26-2023 End: 04-26-2023 ambulatory LINARES JHONY Not Available Start: 04-15-2022 End: 04-17-2022 ambulatory QUYNH ARCHER Facility:[facility]1 Start: 02-08-2022 End: 02-09-2022 ambulatory NANCI BEEBE Facility:[facility] Start: 12-30-2021 End: 12-31-[address] FLOR RIVERA Facility:[facility] Start: 01-20-2020 End: 01-23-2020 Patient encounter procedure [facility] Start: 01-20-2020 End: 01-22-2020 Subsequent hospital visit by physician Roman [facility]acio [facility] Radiology Comment on above: Chronic bilateral lo w back pain without sciatica Chronic neck pain; Chronic bilateral low back pain without sciatica Start: 07-31-2018 Patient encounter procedure Heath Kirkpatrick Facility:[id number] Start: 07-20-2018 End: 07-20-2018 General Leda Agrawal CNP Work Phone: [facility] Work Phone: Start: 02-13-2018 End: 02-13-2018 Patient encounter procedure Leda Agrawal CNP Work Phone: [facility] Work Phone: Start: 02-13-2018 Office outpatient vi sit 15 minutes Leda Agrawal Other [facility] Start: 01-25-2018 End: 01-25-2018 Patient encounter procedure Leda Agrawal CNP Work Phone: [facility] Work Phone: Start: 01-25-2018 Office outpatient vi sit 15 minutes Leda Agrawal Other [facility] Start: 11-14-2017 Office outpatient vi sit 15 minutes Leda Agrawal Other [facility] Start: 11-14-2017 End: 11-14-2017 Patient encounter procedure Leda Agrawal CNP Work Phone: [facility] Work Phone: Start: 10-12-2017 End: 10-12-2017 Patient encounter procedure Leda Agrawal CNP Work Phone: [facility] Work Phone: Start: 10-12-2017 End: 10-12-2017 Office outpatient visit 15 minutes Leda Agrawal Other [facility] Start: 10-12-2017 Polysom 6/>yrs sleep 4/> addl nicky attnd [facility] Start: 10-12-2017 Polysom 6/>yrs sleep w/cpap 4/> addl nicky attnd [facility] Start: 09-20-2017 End: 09-20-2017 Office outpatient visit 15 minutes Leda Agrawal Other [facility] Start: 09-20-2017 End: 09-20-2017 Patient encounter procedure Leda Agrawal NANOELECTRONICS ENGINEER Work Phone: [employer] [facility] Work Phone: Start: 09-14-2017 End: 09-14-2017 Patient encounter procedure Leda Agrawal CNP Work Phone: [employer] [facility] Work Phone: Start: 09-14-2017 Laboratory examinati on, unspecified Leda Agrawal [facility] Start: 09-14-2017 Colonoscopy w/biopsy single/multiple Leda Agrawal [facility] Start: 09-14-2017 Dxa bone density kourtney dy 1/> sites axial skel Leda Agrawal [facility] Start: 09-14-2017 End: 09-14-2017 Office outpatient new 45 minutes Leda Agrawal Other [facility] Procedures Date Procedure Procedure Detail Performing Clinician Start: 01-20-2020 Radex spine lumbosac ral 2/3 views ALLANMPKASIA SHARMA Start: 01-20-2020 Radex spine cervical 2 or 3 views ALLANMPKASIA SHARMA Start: 01-20-2020 Radex spine lumbosac ral 2/3 views Tim Sharma Work Phone: Start: 01-20-2020 Radex spine cervical 2 or 3 views Tmi Sharma Work Phone: Start: 08-10-2018 Follow-up visit [...] w/cpap 4/> addl nicky attnd Leda Agrawal Start: 09-20-2017 PHQ9 Administered Leda Agrawal Start: 09-20-2017 SBIRT Negative Leda Diaz linda Start: 09-14-2017 Assay of free thyroxine Leda [...] risk assmt score doc stnd instrm Leda Agrawal Start: 09-14-2017 Pulmonology. Leda quach Plan of Treatment Date Care Activity Detail Author Start: 04-30-2020 End: 04-30-2020 Office Visit 04/30/2020 Office Visit Neurology Tim Sharma [place] [address] [facility] Start: 12-24-2019 Influenza vaccination Flu vaccine (#1) [facility] [place] Start: 08-31-2019 Screening for malignant neoplasm of lung Low dose CT lung screening [place], [place] Start: 02-13-2019 Creatinine measurement Creatinine monitoring [place], [place] Start: 11-30-2018 Potassium monitoring Potassium monitoring [place], [place] Start: 11-08-2018 Lipid panel Lipid screen [place], [place] Start: 08-02-2018 FQ visit, estab pt Established Patient [facility] Work Phone: Start: 10-12-2017 Polysom 6/>yrs sleep 4/> addl nicky attnd Polysomnography with CPAP testing [facility] Start: 10-12-2017 Polysom 6/>yrs sleep w/cpap 4/> addl nicky attnd Polysomnography with CPAP testing [facility] Start: 09-14-2017 Dual energy X-ray photon absorptiometry DEXA scan for body composition study [facility] Start: 08-22-2016 Screening for malignant neoplasm of breast Breast cancer screen [place], [place] Start: 01-24-2016 Screening for malignant neoplasm of cervix Cervical cancer screen [place], [place] Start: 2014 Screening for malignant neoplasm of colon Colon cancer screen colonoscopy [place], [place] Start: 2014 Shingles Vaccine (1 of 2) Shingles Vaccine (1 of 2) [place], [place] Start: 08-31-1983 DTaP/Tdap/Td vaccine (1 - Tdap) DTaP/Tdap/Td vaccine (1 - Tdap) [place], [place] Start: 08-31-1979 HIV screening HIV screen [place], [place] Start: 1970 Pneumococcal 0-64 years Vaccine (1 of 1 - PPSV23) Pneumococcal 0-64 years Vaccine (1 of 1 - PPSV23) [place], [place] Start: 1964 Hepatitis C screening Hepatitis C screen [place], [place] Payers Date Payer Category Payer Medicaid [id number] 2. [id number] 1959 Private Health Insurance [id number] 1964 Unknown [id number] 2.16. [id number] 1964 Unknown [id number] 2.16.8 [id number] 1964 Unknown [id number] 2.16.8 40.1.974909.3.579.2.173 1964 Unknown [id number] 2.16.8 40.1.112552.3.579.2.173 1964 Unknown [id number] 2.16.84 0.1.923479.3.579.2.593 1964 Unknown [id number] 2.16.84 0.1.794374.3.579.2.593 1964 Unknown [id number] 2.16.84 0.1.865186.3.579.2.593 1964 Unknown [id number] 2.16.84 0.1.763777.3.579.2.1259 1964 Unknown [id number] 2.16.840 .1.761267.3.579.2.1259 1964 Unknown [id number] 2.16.8 40.1.212904.3.579.2.1286 1964 Unknown [id number] 2.16.8 40.1.378107.3.579.2.1286 1964 Unknown [id number] 2.16.8 40.1.957803.3.579.2.1286 1964 Unknown [id number] 2.16.8 40.1.194525.3.579.2.1286 1964 Unknown [id number] 2.16.8 40.1.624121.3.579.2.1286 1964 Unknown [id number] 2.16.8 40.1.531664.3.579.2.1286 1964 Unknown [id number] 2.16.8 40.1.458245.3.579.2.1286 1964 Unknown [id number] 2.16.8 40.1.612042.3.579.2.1286 1964 Unknown [id number] 2.16.8 [id number] Social History Date Type [facility]ail [facility] Start: End: 12-17-2012 Current every day smoker [facility] End: 12-17-2012 History of tobacco use Cigarette Smoker [employer] Start: 01-20-2020 Cigarettes smoked current (pack per day) - Reported [facility] [employer] Start: 01-20-2020 Tobacco use and exposure Never used [employer] Start: 01-20-2020 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 I personally performed the critical/vázquez portions that determines the level of service. I was directly involved in the management and treatment plan of the patient. I reviewed note and agree with the documentation ---- [facility] Progress Note Subjective Danielle Montana is an 58 y.o. 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 She was admitted to [facility] between 10/18/2023-10/25/2023 initially presenting to [facility] with bilateral upper and lower extremity swelling found to have ERIN. Patient received first Rituxan infusion 10/24/2023, and next is planned for 11/09/2023. Patient was also placed on long prednisone taper with plan for prednisone 60 mg daily for one month, followed by 40 mg daily for one month, 30 mg daily for one month, then 20 mg daily for one month, then 15 mg daily for one month, 10 mg daily for one month, and then 7.5 mg daily for one month at the time of initial discharge planning. Interval History: She is well except for fatigue. HPI Positive labs: MPO positive >8 on 10/15/2023 and 10/18/2023. RF positive at 76. UPCR 4.72g. CRP at 0.9 on 10/19/23. Negative/normal labs: Negative for screening SAUL, PR3, anti-GBM, and cryoglobulin, C3 and C4 complement, CK WNL. Negative hepatitis panel, HIV. 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 See comment. Comment: The sample is limited in that tissue allocated for immunofluorescence studies is only composed of medulla. 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 No other autoimmune diseases or arthritis known in the family. 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 Smokes 0.5 ppd x 47 years, denies alcohol use, and denies illicit drug use. Patient is , 0 history of miscarriages. Comprehensive History: Patient Active Problem List Diagnosis Microscopic polyangiitis ([facility]/HCC) Abnormal fasting glucose Acute respiratory failure with hypoxia and hypercarbia ([facility]/HCC) ERIN (acute kidney injury) ([facility]) Anxiety Astigmatism, regular B12 deficiency Bipolar depression ([facility]/HCC) Cancer ([facility]/HCC) Cellulitis of left hand Cervical cancer ([facility]/HCC) Chronic obstructive pulmonary disease ([facility]) Chronic rhinitis COPD with acute exacerbation ([facility]/HCC) Emphysema of lung ([facility]) Class 3 severe obesity due to excess calories without serious comorbidity in adult ([facility]) Morbid (severe) obesity due to excess calories ([facility]/HCC) Morbid obesity ([facility]/HCC) Cluster headache Degenerative arthritis Depression Dysthymic disorder DNS (deviated nasal septum) Dry mouth Dysphonia Edema of both lower extremities Essential hypertension Fibromyalgia, primary ARSH (generalized anxiety disorder) Gastroesophageal reflux disease Heartburn Hyperglycemia, drug-induced Hyperlipidemia Mixed hyperlipidemia Hyperopia Hypokalemia LUTHER (iron deficiency anemia) Iron deficiency anemia secondary to inadequate dietary iron intake Joint pain Memory change 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, psychotic disturbance, mood disturbance, or anxiety ([facility]/HCC) Mouth sores Tongue lesion MRSA (methicillin resistant Staphylococcus aureus) Nausea Non-recurrent acute suppurative otitis media of both ears without spontaneous rupture of tympanic membranes Open angle with borderline findings and high glaucoma risk in both eyes ADORE (obstructive sleep apnea) Osteoporosis Back pain Chest pain on exertion Other chest pain PAD (peripheral artery disease) ([facility]) Peripheral visual field defect, bilateral Pneumonia of both lungs due to infectious organism Presbyopia Henry's edema of vocal folds Right knee pain Smoking SOB (shortness of breath) Stiff muscles Swollen ankles Tear of articular cartilage of right knee, current, initial encounter Tinnitus of right ear 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 Past Surgical History: Procedure Laterality Date CT GUIDED PERCUTANEOUS BIOPSY RENAL RIGHT Right 10/20/2023 CT GUIDED PERCUTANEO (more content not included)... [facility] Progress note 11-07-2023 Note Date & Type Note Facility 11-07-2023 Note ---- Attestation signed by Elizabeth Alanis MD at 11/07/2023 8:44 PM GC: I saw this patient. I personally performed the critical/vázquez portions that determines the level of service. I was directly involved in the management and treatment plan of the patient. I reviewed note and agree with the documentation ---- [facility] New Patient Visit Subjective Chief Complaint: No chief complaint on file. Danielle Montana is an 58 y.o. 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 She was admitted to [facility] between 10/18/2023-10/25/2023 initially presenting to [facility] with bilateral upper and lower extremity swelling found to have ERIN. Patient received first Rituxan infusion 10/24/2023, and next is planned for 11/09/2023. Patient was also placed on long prednisone taper with plan for prednisone 60 mg daily for one month, followed by 40 mg daily for one month, 30 mg daily for one month, then 20 mg daily for one month, then 15 mg daily for one month, 10 mg daily for one month, and then 7.5 mg daily for one month at the time of initial discharge planning. Interval History: She reports she been having some fatigue and persistent leg swelling, she reports some improvement since hospitalizations. She has since resumed her normal activities, washing dishes, able to get out the house when she wants to. She otherwise she is doing well without acute complaints HPI Positive labs: MPO positive >8 on 10/15/2023 and 10/18/2023. RF positive at 76. UPCR 4.72g. CRP at 0.9 on 10/19/23. Negative/normal labs: Negative for screening SAUL, PR3, anti-GBM, and cryoglobulin, C3 and C4 complement, CK WNL. Negative hepatitis panel, HIV. 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 See comment. Comment: The sample is limited in that tissue allocated for immunofluorescence studies is only composed of medulla. 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 No other autoimmune diseases or arthritis known in the family. 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 Smokes 0.5 ppd x 47 years, denies alcohol use, and denies illicit drug use. Patient is , 0 history of miscarriages. Comprehensive History: Patient Active Problem List Diagnosis Microscopic polyangiitis (CMS/HCC) Abnormal fasting glucose Acute respiratory failure with hypoxia and hypercarbia (CMS/HCC) ERIN (acute kidney injury) (CMS/HCC) Anxiety Astigmatism, regular B12 deficiency Bipolar depression (CMS/HCC) Cancer (CMS/HCC) Cellulitis of left hand Cervical cancer (CMS/HCC) Chronic obstructive pulmonary disease (CMS/HCC) Chronic rhinitis COPD with acute exacerbation (CMS/HCC) Emphysema of lung (CMS/HCC) Class 3 severe obesity due to excess calories without serious comorbidity in adult (CMS/HCC) Morbid (severe) obesity due to excess calories (CMS/HCC) Morbid obesity (CMS/HCC) Cluster headache Degenerative arthritis Depression Dysthymic disorder DNS (deviated nasal septum) Dry mouth Dysphonia Edema of both lower extremities Essential hypertension Fibromyalgia, primary ARSH (generalized anxiety disorder) Gastroesophageal reflux disease Heartburn Hyperglycemia, drug-induced Hyperlipidemia Mixed hyperlipidemia Hyperopia Hypokalemia LUTHER (iron deficiency anemia) Iron deficiency anemia secondary to inadequate dietary iron intake Joint pain Memory change 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, psychotic disturbance, mood disturbance, or anxiety (CMS/HCC) Mouth sores Tongue lesion MRSA (methicillin resistant Staphylococcus aureus) Nausea Non-recurrent acute suppurative otitis media of both ears without spontaneous rupture of tympanic membranes Open angle with borderline findings and high glaucoma risk in both eyes ADORE (obstructive sleep apnea) Osteoporosis Back pain Chest pain on exertion Other chest pain PAD (peripheral artery disease) (CMS/HCC) Peripheral visual field defect, bilateral Pneumonia of both lungs due to infectious organism Presbyopia Henry's edema of vocal folds Right knee pain Smoking SOB (shortness of breath) Stiff muscles Swollen ankles Tear of articular cartilage of right knee, current, initial encounter Tinnitus (more content not included)... [facility] Clinical Note 02-09-2022 Note Date & [...] authenticated by: LO COSTA Date: 2022-02-09 06:49 [facility] Clinical Note 02-09-2022 Note Date & [...] authenticated by: LO COSTA Date: 2022-02-09 06:49 [facility] Evaluation note Note Date & Type Note Facility Evaluation note Includes: Assessments for all patient encountersNo Assessments Recorded [facility] Work Phone: History of Present illness Narrative Note Date & Type Note Facility History of Present illness Narrative History of Present Illness not supported for this document typeNo History of Present Illness Recorded [facility] Work Phone: Instructions Note Date & Type Note Facility Instructions Instructions not supported for this document typeNo Instructions Recorded [facility] Work Phone: Patient problem outcome Narrative Note Date & Type Note Facility Patient problem outcome Narrative Includes: Evaluations & Outcomes for active GoalsNo Outcomes Recorded [facility] Work Phone: Review of systems Narrative - Reported Note Date & Type Note Facility Review of systems Narrative - Reported Review of Systems not supported for this document typeNo Review of Systems Recorded [facility] Work Phone: History of Past Illness [...] No Family History RecordedNo Family History Records FoundNo Family History Records FoundNo Family History Records FoundNo Family History Records FoundNo Family History Records Found Advance Directives No Advanced Directives Records FoundDocuments on File Type Date 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 ACP-Advance Directive ACP-Power of Monorail Helper Assessments Diagnosis Chronic bilateral low back pain without sciatica Diagnosis Chronic neck pain Cervicalgia Chronic bilateral low back pain without sciatica Physical Exam Physical Exam not supported for this document type No Physical Exam Recorded Additional Source Comments INFORMATION SOURCE (unrecogn ized section and content) DATE CREATED AUTHOR 10/23/2017 [facility] DATE CREATED AUTHOR AUTHOR'S ORGANIZ ATION 08/01/2018 [facility] DATE CREATED AUTHOR AUTHOR'S ORGANIZ ATION 08/11/2018 [employer] DATE CREATED AUTHOR AUTHOR'S ORGANIZ ATION 01/23/2020 [facility] DATE CREATED AUTHOR AUTHOR'S ORGANIZ ATION 04/19/2022 [facility] DATE CREATED AUTHOR AUTHOR'S ORGANIZ ATION 11/08/2023 [facility] dical [facility] DATE CREATED AUTHOR AUTHOR'S ORGANIZ ATION 12/21/2023 [facility] DATE CREATED AUTHOR AUTHOR'S ORGANIZ ATION 01/14/2024 [facility] DATE CREATED AUTHOR AUTHOR'S ORGANIZ ATION 01/15/2024 [facility] FOR RECORDS PERTAINING TO PATIENTS WHO ARE [...] BE BASED ON THE PRIMARY CLINICAL RECORDS. [facility] [employer] [facility]. provides no warranty or guarantee of the accuracy or completeness of information in this document.
[2024-01-20 10:41] VITALS: BP 160/84; PULSE 68; TEMP 36.6; O2SAT 92; BMI 63.5
--- NOTE | 2024-01-20 10:46 | PC.NURSE ---
Pain to left knee, area of blue/red color bruising to knee, no redness or swelling at site. Ambulates without difficulty.
--- NOTE | 2024-01-20 10:51 | XR_ITS ---
The [address] [address] Patient Name: DANIELLE MONTANA MRN: [id number] date: 1965 Sex: F Assigned Patient Location: ER Current Patient Location: ER Accession/Order Number: [id number] Exam Date: 01/20/2024 11:32 Report Date: 01/20/2024 12:10 At the request of: GERALDINE NESBITT Procedure: XR knee LT 3V EXAM: XR knee LT 3V HISTORY: Trauma; technologist notes state left knee pain following a fall. COMPARISON: None. TECHNIQUE: 3 view left knee series performed. FINDINGS: The bony structures are osteopenic. The alignment is anatomic. There is no fracture. Moderate degenerative changes at the medial compartment of the femoral-tibiotalar articulation with joint space narrowing, subchondral sclerosis and marginal osteophyte. Mild degenerative changes with marginal osteophyte at the lateral compartment of the femoral-tibial and patellofemoral articulations. There is no joint effusion at the knee. XR/XR knee LT 3V IMPRESSION: There is no acute fracture or malalignment. Tricompartmental degenerative changes, moderate at the medial compartment of the femoral-tibial articulation and mild at the lateral compartment of the femoral-tibial and patellofemoral articulations. The bony structures are osteopenic. Electronically authenticated by: ANGELINA SOTO Date: 01/20/2024 12:10
[2024-01-20] MEDS: KETOROLAC TROMETHAMINE 60 MG/2 ML VIAL IM (10:58)
--- NOTE | 2024-01-20 12:24 | ED.LOWEXI1 ---
HPI HPI - Extremity Injury (Lower) General Chief Complaint: Extremity Injury, Lower Stated Complaint: LOWER EXTREMITY PAIN, FALL Time Seen by Provider: 01/20/24 10:47 Source: patient Mode of arrival: walk-in Limitations: no limitations History of Present Illness HPI Narrative: Patient is coming to us with left knee pain and redness that she noticed over the last 2 weeks, mentioned that almost 2 weeks ago she was standing up by her bed when she leaned forward to get something and she fell on her knee she has been having pain in her left knee since then She denies any other complaint Related Data Previous Rx's ?Medication ?Instructions ?Recorded azithromycin 250 mg tablet See Rx Instructions PO .COMPLEX #6 02/12/23 (Zithromax Z-Tao) tabs prednisone 50 mg tablet 50 mg PO DAILY 5 days #5 tabs 02/12/23 azithromycin 250 mg tablet See Rx Instructions PO .COMPLEX #6 07/21/23 (Zithromax Z-Tao) tabs prednisone 10 mg tablet See Rx Instructions .Route 07/21/23 .COMPLEX #30 tabs cephalexin 500 mg capsule 500 mg PO TID 5 days #15 caps 01/20/24 meloxicam 15 mg tablet 15 mg PO DAILY PRN pain #10 tabs 01/20/24 Allergies Allergy/AdvReac Type Severity Reaction Status Date / Time codeine Allergy Intermediate Nausea Verified 01/20/24 10:41 pregabalin [From Lyrica] Allergy Intermediate Rash Verified 01/20/24 10:41 sulfamethoxazole Allergy Intermediate Rash Verified 01/20/24 10:41 [From Bactrim] trimethoprim [From Bactrim] Allergy Intermediate Rash Verified 01/20/24 10:41 Opioid HPI Opioid Management Most Recent Pain and Opioid Data: Last ED Pain Assessment 01/20/24 11:39 Review of Systems ROS Status of ROS 10 or more systems reviewed and unremarkable except as noted in history and below PFSH PFSH Social History Smoking status: Current every day smoker Little interest or pleasure in doing things: not at all Feeling down, depressed, or hopeless: not at all Exam Narrative Exam Narrative: Nurses notes and vital signs reviewed and patient is not hypoxic. Left knee exam: The patient have no effusion that could be appreciated and she does have a patch of redness on the skin just superficial not extending to the knee itself and it is very tender. The patient had no vascular injury detected there is no effusion detected she also had a negative drawer signs General: Well-appearing and in no apparent distress. Skin: Warm, dry, no pallor noted. No rash. Head: Normocephalic, atraumatic. Neck: Supple, non-tender. Eye: Pupils are equal, round and EOMI. No scleral icterus. Ears, Nose, Mouth, and Throat: TM are clear, no nasal mucosal hypertrophy. Oral mucosa is moist, no posterior oropharynx erythema, uvula is mid-line Cardiovascular: Regular Rate and Rhythm without murmur, gallop or rub. Respiratory: No accessory muscle use or respiratory distress. Lungs are clear to auscultation, no wheezing, rales or rhonchi Chest Wall: no tenderness Back: No midline thoracic or lumbar vertebral tenderness. No CVA tenderness GI: Abdomen is soft, non-distended. Normal bowel sounds. No masses appreciated. No tenderness to palpation. No rebound, guarding, or rigidity noted. Neurological: A&O x4. No cranial nerve dysfunction observed. No truncal ataxia. Moves all extremities. Sensation intact. Psychiatric: Cooperative and interactive. Normal mood and affect. Constitutional Vital Signs, click to edit/add: Last Vital Signs Temp 97.9 F 01/20/24 10:41 Pulse 01/20/24 10:41 Resp 01/20/24 10:41 BP 160/84 H 01/20/24 10:41 Pulse Ox 92 L 01/20/24 10:41 O2 Del Method Room Air 01/20/24 10:41 Course Vital Signs Vital signs: Vital Signs Temperature 97.9 F 01/20/24 10:41 Pulse Rate 01/20/24 10:41 Respiratory Rate 01/20/24 10:41 Blood Pressure 160/84 H 01/20/24 10:41 Pulse Oximetry 92 L 01/20/24 10:41 Oxygen Delivery Method Room Air 01/20/24 10:41 Temperature 97.9 F 01/20/24 10:41 Pulse Rate 01/20/24 10:41 Respiratory Rate 01/20/24 10:41 Blood Pressure 160/84 H 01/20/24 10:41 Pulse Oximetry 92 L 01/20/24 10:41 Oxygen Delivery Method Room Air 01/20/24 10:41 MDM - Extremity Injury (Lower) MDM Narrative Medical decision making narrative: X-ray of the left knee showed osteoarthritis Ajay wrap applied and the patient will follow-up with orthopedic as outpatient She was covered with Keflex with a small area of redness but she that she had this injury 2 weeks ago and the redness could be mild cellulitis The patient is to follow up with primary care physician in next 2-3 days or to return to the emergency department should any of the signs or symptoms worsen or new symptoms develop. The patient agrees with the following Diagnosis and Treatment plan and the patient will be discharged home. Discharge Plan Discharge Chief Complaint: Extremity Injury, Lower Clinical Impression: Contusion of knee, Cellulitis Patient Disposition: Home, Self-Care Time of Disposition Decision: 12:23 Condition: Good Prescriptions / Home Meds: New cephalexin 500 mg capsule 500 mg PO TID 5 Days Qty: 15 0RF meloxicam 15 mg tablet 15 mg PO DAILY PRN (Reason: pain ) Qty: 10 0RF No Action azithromycin [Zithromax Z-Tao] 250 mg tablet See Rx Instructions .ROUTE .COMPLEX Qty: 6 0RF Hold Instructions: dc Rx Instructions: For 250 mg dose pack: take 500 mg today (day 1), then 250 mg for 4 days (days 2-5) prednisone 50 mg tablet 50 mg PO DAILY 5 Days Qty: 5 0RF Hold Instructions: dc prednisone 10 mg tablet See Rx Instructions .ROUTE .COMPLEX Qty: 30 0RF Rx Instructions: 4 by mouth daily for three days then 3 by mouth daily for three days then 2 by mouth daily for three days then 1 by mouth daily for three days azithromycin [Zithromax Z-Tao] 250 mg tablet See Rx Instructions .ROUTE .COMPLEX Qty: 6 0RF Rx Instructions: For 250 mg dose pack: take 500 mg today (day 1), then 250 mg for 4 days (days 2-5) Print Language: Faroese Instructions: Contusion in Adults (ED) Referrals: Emanuel Drummond MD [Physician] - 1 week Shaikh Vasquez MD [Primary Care Provider] - 1 week
== END 2024-01-20 12:42 | disposition home or self-care (01) ==
PROVIDERS: Emergency Provider Emergency Medicine; PCP Internal Medicine
DX: S80.02XA Contusion of left knee, initial encounter (principal); L03.116 Cellulitis of left lower limb; F17.200 Nicotine dependence, unspecified, uncomplicated
CPT/HCPCS: 73562; 96372; 99284; J1885

== ENCOUNTER 2024-03-23 08:24 | Emergency (ER) | payer OTHER, SELFPAY ==
[2024-03-23] VITALS (16 sets, daily range): BP systolic 130–200; BP diastolic 82–109; PULSE 68–89; TEMP 36.4; O2SAT 93–99; BMI 62.4
--- NOTE | 2024-03-23 08:34 | ECG_ITS ---
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
--- NOTE | 2024-03-23 08:34 | XR_ITS ---
The [address] [address] Patient Name: DANIELLE MONTANA MRN: [id number] date: 1965 Sex: F Assigned Patient Location: ER Current Patient Location: ER Accession/Order Number: [id number] Exam Date: 03/23/2024 08:40 Report Date: 03/23/2024 08:57 At the request of: GERALDINE NESBITT Procedure: XR chest 1V EXAMINATION: XR chest 1V HISTORY: sob COMPARISON: XR chest 07/21/2023 FINDINGS: LUNGS: Mild patchy and confluent opacities within lung bases. Mild haziness throughout the lungs. Underexpanded lungs. VASCULATURE: No increased pulmonary vasculature. PLEURA: No pneumothorax, effusion, or pleural thickening. CARDIAC: No cardiomegaly or cardiac silhouette abnormality. MEDIASTINUM: No visible mass or adenopathy. BONES: No fracture or visible bone lesion. OTHER: Negative. XR/XR chest 1V IMPRESSION: 1. Low lung volume examination. 2. Suspect mild bilateral infiltrates versus atelectasis; not significantly changed. Electronically authenticated by: LO COSTA Date: 03/23/2024 08:57
--- OUTSIDE RECORDS SUMMARY | 2024-03-23 08:37 | XMS_ITS | CCD ---
Author Organization [facility] Care Team Providers Care Flooring Professional Name Role Phone Tanja, Leda Unavailable Unavailable [...] le RUMSCHLAG, MIGNON Primary Care Unavailable Tanja UTILITY TELLER, Leda Unavailable NICOLE, DR VU Novoa Attending Unavailable NICOLE, DR VU Novoa Admitting Unavailable [facility] Primary Care Unavailable LIYAH, DR EBEN Couch Consulting Unavailabl e SHEY, DR FRIEDA Tobar Consulting Unavailabl e JULISSA, DR LO Hdz Consulting Unavailable NICOLE, DR VU Novoa Consulting Unavailable MARKER, DR KHAN Consulting Unavailable NANCI BEEBE Attending Unavailable NANCI BEEBE Admitting Unavailable JULISSA, DR LO Hdz Consulting Unavailable [facility] Primary Care Unavailable NANCI BEEBE Consulting Unavailable QUYNH ARCHER Attending Unavailable QUYNH ARCHER Admitting Unavailable [facility] Primary Care Unavailable QUYNH ARCHER Consulting Unavailable NATASHA RANDLE. Admitting Unavailable KANCHAN. RAZIA Attending Unavailable ANTIONE BRITO Referring Unavailable PCP, NOT IN SYSTEM Primary Care Unavailable IRVING FLORES Consulting Unavailable ELIZABETH HI Consulting Unavailab le WANDA MENDEZ Attending Unavailable AL-KATHLEEN, WANDA T Referring Unavailable ZAMORA, SHAWN E Primary Care Unavailable ALTOROK, NEZAM SMITH Referring Unavailab le ZAMORA, SHAWN E Primary Care Unavailable ALTOROK, NEZAM SMITH Referring Unavailab le ZAMORA, SHAWN E Primary Care Unavailable PCP, NOT IN SYSTEM Primary Care Unavailable JOSE TORRES Attending Unavailable DRE PRIETO Admitting Unavailable VIOLETA ELY Consulting Unavailable FRAN WILD Consulting Unavailable JOSE TORRES Attending Unavailable JOSE TORRES M Referring Unavailable PCP, NOT IN SYSTEM Primary Care Unavailable ZAMORA, SHAWN E Referring Unavailable ZAMORA, SHAWN E Primary Care Unavailable ZAMORA, SHAWN E Referring Unavailable ZAMORA, SHAWN E Primary Care Unavailable AL-KATHLEEN, WANDA Referring Unavailable ZAMORA, SHAWN E Primary Care Unavailable HANANE CLEANING Referring Unavailable ZAMORA, SHAWN E Primary Care Unavailable SHAIKH BOOKER Attending Unavailable SHAIKH BOOKER Attending Unavailable ERICA POMPA Attending UnavailShawn Abdi MD Primary Care Provider Vu Rivera MD Primary Care Provider Erica Pompa NP Unavailable SVEN HIZAClau Garcia Referring Unavailable RASHAAD BLACKMAN Attending Unavailab le ELIZABETH HI I Attending Unavailable Allergies Allergy Classification Reported Allergen(s) Allergy Type Date of Onset Reaction(s) Facility (20 sources) codeine; Translations: [Codeine] Drug Allergy 01-19-20 12 Nausea And Vomiting, Vomiting, GI intolerance [facility] (4 sources) pregabalin; Translations: [Lyrica] Drug Allergy [facility] (4 sources) sulfamethoxazole / trimethoprim; Translations: [Bactrim] Drug Allergy [facility] (4 sources) -No Environmental Allergies; Translations: [-No Environmental Allergies] Allergy to substance (disorder) [facility] (2 sources) -No Known Food Allergies Allergy to substance (disorder) [facility] (3 sources) NSAIDs Propensity to adverse reactions to drug 02-24-20 15 Other (See Comments) [place] (15 sources) pregabalin; Translations: [PREGABALIN] Drug Allergy 01-19-20 12 Other (See Comments), Unknown [place] (15 sources) Sulfamethoxazole / Trimethoprim; Translations: [SULFAMETHOXAZOLE-T RIMETHOPRIM] Drug Allergy 11-15-19 16 Hives [place] (1 source) pregabalin Drug Allergy 12-31-19 22 [facility] (1 source) Sulfamethoxazole / Trimethoprim Drug Allergy 04-15-20 22 [facility] Medications Current Medications Medication Drug Class(es) Dates Sig (Normalized) Sig (Original) acetaminophen 325 mg oral tablet (3 sources) take 2 tablets by mouth every four hours as needed for pain acetaminophen (TYLENOL) 325 MG tablet Take 650 mg by mouth every 4 hours as needed for Pain 0 Active [id number] 200 actuat albuterol 0.09 mg/actuat metered dose inhaler (10 sources) beta2-Adrenergic Agonist Start: 01-31-2024 take 2 puff(s) by inhalation every four hours for wheezing albuterol HFA 90 mcg/act inhaler Indications: Chronic obstructive pulmonary disease with acute exacerbation (CMS/HCC) Inhale 2 puffs every 4 (four) hours if needed for wheezing or shortness of breath 18 g 2 01/31/2024 Active Start: 07-19-2018 Ventolin HFA 1 08 (90 Base)MCG/ACT Inhalation Aerosol, solution 07/19/2018 Provider: Start: 05-19-2018 End: 05-19-2018 VENTOLIN HFA 90MCG/ACTUAT MN SC 05/19/2018 - 05/19/2018 Provider: take 2 [...] inhalation route every 6 hours as needed albuterol 0.833 mg/ml / ipratropium bromide 0.167 mg/ml inhalation solution (7 sources) Anticholinergic, beta2-Adrenergic Agonist Start: 01-31-2024 End: 04-30-2024 ipratropium-albuterol (Duo-Neb) 0.5-2.5 mg/3 mL nebulizer solution Indications: Chronic obstructive pulmonary disease with acute exacerbation (CMS/HCC) Take 3 mL by nebulization every 6 (six) hours if needed for wheezing 360 mL 2 01/31/2024 04/30/2024 Active Start: 01-02-2021 take 3 mL by inhalat ion every four hours ipratropium-albuteroL (DUO-NEB) 0.5 mg-3 mg(2.5 mg base)/3 mL nebulizer Indications: Chronic obstructive pulmonary disease, unspecified COPD type (CMS-HCC) Inhale 3 mL by nebulization every 4 (four) hours while awake. 90 mL 01/02/2021 Active atovaquone 150 mg/ml oral suspension (9 sources) Antimalarial, Antiprotozoal Start: 10-26-2023 take 10 mL by mouth once daily at breakfast atovaquone (MEPRON) 750 mg/5 mL suspension Take 10 mL (1,500 mg total) by mouth daily with breakfast. 210 mL 10/26/2023 Active Start: 10-26-2023 End: 01-31-2024 take 1500 mg by mouth at mealtime atovaquone (Mepron) 750 MG/5ML suspension Take 1,500 mg by mouth in the morning. Take with meals. 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) Take 1 tablet (1 mg total) by mouth daily. 30 tablet 3 01/15/2024 Active busPIRone hydrochloride 15 mg oral tablet (10 sources) Start : 11-01 End: 01-28 take 1 tablet by mouth once busPIRone (Buspar) 15 MG tablet Indications: ARSH (generalized anxiety disorder) ([facility]) Take 1 tablet (15 mg) by mouth every 12 (twelve) hours 180 tablet 01/29/2024 Active Start: 10-25-2023 take 1 tablet by jayson th in the morning, then take 1 tablet by mouth at bedtime busPIRone (BUSPAR) 5 mg tablet Take 1 tablet (5 mg total) by mouth in the morning and 1 tablet (5 mg total) before bedtime. 60 tablet 10/25/2023 Active Calcium (2 sources) Phosphate Binder, Calcium Start: 07-19-2018 Calc ium 600MG Oral Tablet 07/19/2018 Provider: Start: 09-14-2017 End: 09-14-2017 CALCIUM 600 600 mg calcium(1 ,500 MG) [facility] 09/14/2017 - 09/14/2017 Provider: calcium carbonate 1250 mg / cholecalciferol 200 unt oral tablet (3 sources) Vitamin D Start: 04-09-2014 take 1 tablet by mouth once daily, then take 2.5-500 tablets by mouth once calcium-vitamin D (OSCAL 500/200 D-3) 500-200 MG-UNIT per tablet TAKE ONE TABLET BY MOUTH ONCE A DAY 30 tablet 3 04/09/2014 Active carvedilol 25 mg oral tablet (9 sources) alpha-Adrenergic Kelsi, beta-Adrenergic Kelsi Start: 10-25-2023 End: 04-30-2024 take 1 tablet by mouth in the morning, then take 1 tablet by mouth at bedtime carvediloL (COREG) 25 mg tablet Take 1 tablet (25 mg total) by mouth in the morning and 1 tablet (25 mg total) before bedtime. 60 tablet 10/25/2023 Active cetirizine hydrochloride 10 mg oral tablet (9 sources) Histamine-1 Receptor Antagonist Start: 11-02-2023 End: 04-30-2024 take 1 tablet by mouth once daily cetirizine (ZyrTEC) 10 MG tablet Indications: Chronic rhinitis Take 1 tablet (10 mg) by mouth Daily 90 tablet 01/31/2024 04/30/2024 Active Start: 07-19-2018 ZyrTEC Allergy 10MG Oral Tablet 07/19/2018 Provider: Start: 11-14-2017 take 1 tablet by jayson th once daily at bedtime as needed for cough Zyrtec 10 mg oral tablet 11/14/2017 take 1 tablet (10 mg) by oral route once daily at bedtime as needed for cough/congestion Start: 11-14-2017 End: 11-14-2017 ZYRTEC 10 mg MISC 11/14/2017 - 11/14/2017 Provider: cholecalciferol 0.125 mg oral tablet (9 sources) Vitamin D Start: 01-15-2024 take 1 tablet by mouth once in the morning cholecalciferol, vitamin D3, (VITAMIN D3) 5,000 units tablet Indications: 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 90 each 3 01/15/2024 Active Start: 01-15-2024 take 1 tablet by jayson th in the morning cholecalciferol (Vitamin D-3) 125 MCG (5000 UT) tablet Take 5,000 Units by mouth in the morning. 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 90 tablet 1 11/02/2023 04/30/2024 Active take 1 tablet by mouth once harmeet y donepeziL (ARICEPT) 5 mg tablet Take 1 tablet (5 mg total) by mouth nightly. Active take 1 tablet by mouth once harmeet y donepezil (ARICEPT) 10 MG tablet Take 10 mg by mouth nightly 0 Active DULoxetine 60 mg delayed release oral capsule (20 sources) Serotonin and Norepinephrine Reuptake Inhibitor Start: 11-02-2023 take 1 capsule by mouth in the morning DULoxetine (Cymbalta) [address] capsule Indications: ARSH (generalized anxiety disorder) (CMS/HCC) , Bipolar depression (CMS/HCC) Take 1 capsule (60 mg) by mouth in the morning. 90 capsule 1 11/02/2023 Active Start: 10-26-2023 take 1 capsule by mo uth in the morning DULoxetine (CYMBALTA) 30 mg capsule Take 1 capsule (30 mg total) by mouth in the morning. 30 capsule 10/26/2023 Active Start: 07-19-2018 DULoxetine HCl 30MG Oral Capsule, delayed-release particles [...] Provider: Start: 03-07-2018 End: 03-07-2018 DULOXETINE 30MG MISC 018 - 03/07/2018 Provider: take 1 capsule by mo uth once daily duloxetine 30 mg oral capsule,delayed release(DR/EC) take 1 capsule (30 mg) by oral route once daily ergocalciferol 1.25 mg oral capsule (4 sources) Provitamin D2 Compound Start: 07-19-2018 Ergocalciferol 28168ANAY Oral Capsule, conventional 07/19/2018 Provider: Start: 09-14-2017 take 1 capsule by [facility] every week Vitamin D2 50,000 unit oral capsule 09/14/2017 take 1 capsule (50,000 unit) by oral route once weekly ferrous sulfate 325 mg oral tablet (9 sources) Start: 10-26-2023 End: 04-30-2024 take 1 tablet by mouth once daily at breakfast ferrous sulfate 325 (65 FE) mg tablet Take 1 tablet (325 mg total) by mouth daily with breakfast. 30 tablet 10/26/2023 Active 60 actuat fluticasone propionate 0.5 mg/actuat / salmeterol 0.05 mg/actuat dry powder inhaler (2 sources) Corticosteroid, beta2-Adrenergi c Agonist Start: 07-20-2018 Advair Diskus 500-50MCG/DOSE Inhalation Aerosol Powder Breath Activated 07/20/2018 Provider: Leda Agrawal CNP Start: 07-12-2018 End: 07-20-2018 Advair Diskus 250-50MCG/DOSE Inhalation Aerosol Powder Breath Activated 07/12/2018 - 07/20/2018 Provider: Leda Agrawal CNP Ntxuqsovgyo-Tmqvucczw-Sxpmyk (Trelegy Ellipta) 200-62.5-25 MCG/ACT aerosol powder (4 sources) Start: 11-02-2023 take 1 puff(s) by inhalation once daily Uknqvcomleg-Nbqlqhrnt-Qlxrum (Trelegy Ellipta) 200-62.5-25 MCG/ACT aerosol powder Indications: Chronic obstructive pulmonary disease, unspecified COPD type ([facility]) Inhale 1 puff Daily 28 each 3 11/02/2023 Active gabapentin 600 mg oral table t (7 sources) Anti- epile ptic Agent Start: 07-19-2018 Gabapentin 600MG Oral Tablet 07/19/2018 Provider: Start: 05-19-2018 End: 05-19-2018 GABAPENTIN 300 mg MISC 05/19 - 05/19/2018 Provider: Start: 02-13-2018 End: 02-13-2018 Gabapentin 600MG OR TABS - 02/13/2018 Provider: Start: 09-26-2017 take 1 capsule by mo ilh three times daily gabapentin 300 mg oral capsule 09/26/2017 take 1 capsule (300 mg) by oral route 3 times per day Start: 09-26-2017 End: 09-26-2017 GABAPENTIN 300 mg MISC 09/26 - 09/26/2017 Provider: 12 hr guaiFENesin 600 mg extended release oral tablet (2 sources) Start: 01-31-2024 End: 02-14-2024 guaiFENesin (Mucinex) 600 MG 12 hr tablet Indications: Chronic obstructive pulmonary disease with acute exacerbation (CMS/HCC) Take 2 tablets (1,200 mg) by mouth every 12 (twelve) hours if needed for cough for up to 14 days Do not crush, chew, or split. 28 tablet 01/31/2024 02/14/2024 Active hydroCHLOROthiazide 12.5 mg / lisinopril 10 mg oral tablet (9 sources) Thiazide Diuretic, Angiotensin Converting Enzyme Inhibitor Start: 07-19-2018 Lisinopril-hydroCHL OROthiazide 10-12.5MG Oral Tablet 07/19/2018 Provider: Start: 05-19-2018 End: 05-19-2018 Lisinopril-hydroCHLOROthiazi de 10-12.5MG TABS 05/19/2018 - 05/19/2018 Provider: Conversion Provider Start: 09-26-2017 take 1 tablet by jayson once daily lisinopril-hydrochlorothiazide 10-12.5 m g oral tablet 09/26/2017 take 1 tablet by oral route once daily Start: 09-26-2017 End: 09-26-2017 Lisinopril-hydroCHLOROthiazi de 10-12.5MG TABS 09/26/2017 - 09/26/2017 Provider: hydrOXYzine hydrochloride 25 mg oral tablet (13 sources) Antihistamine Start: 11-02-2023 End: 04-30-2024 take 1 tablet by mouth every eight hours as needed hydrOXYzine (ATARAX) 25 mg tablet Take 1 tablet (25 mg total) by mouth every 8 (eight) hours as needed. 11/02/2023 04/30/2024 Active Start: 07-19-2018 hydrOXYzine Pa moate 50MG Oral Capsule, conventional 07/19/2018 Provider: Start: 05-19-2018 End: 05-19-2018 HYDROXYZINE PAMOATE 50MG MIS C 05/19/2018 - 05/19/2018 Provider: Start: 03-13-2018 take 1 capsule by [facility] twice daily hydroxyzine pamoate 50 mg oral capsule 03/13/2018 take 1 capsule (50 mg) by oral route 2 times per day Start: 03-13-2018 End: 03-13-2018 HYDROXYZINE PAMOATE 50MG MIS C 03/13/2018 - 03/13/2018 Provider: lamoTRIgine 100 mg oral tablet (4 sources) Mood Stabilizer, Anti-epileptic Agent Start: 07-25-2023 End: 01-31-2024 take 1 tablet by mouth in the morning lamoTRIgine (LaMICtal) 100 MG tablet Indications: Bipolar depression (CMS/HCC) Take 1 tablet (100 mg) by mouth in the morning. 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 90 tablet 3 01/15/2024 Active meloxicam 15 mg oral tablet (7 sources) Nonsteroidal Anti-inflammatory Drug Start: 01-20-2024 meloxicam (Mobic) 15 MG tablet 01/20/2024 Active Start: 07-19-2018 Mobic 15MG Ora l Tablet 07/19/2018 Provider: Start: 09-14-2017 End: 09-14-2017 Mobic 15MG OR TABS 8 - 09/14/2017 Provider: omeprazole 40 mg delayed release oral capsule (18 sources) Proton Pump Inhibitor Start: 11-02-2023 take 1 capsule by mouth in the morning omeprazole (PriLOSEC) [address] capsule Indications: Gastroesophageal reflux disease without esophagitis Take 1 capsule (40 mg) by mouth in the morning. 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 53 tablet 01/15/2024 02/19/2024 Active Start: 10-26-2023 take 3 tablets by mo uth at mealtime predniSONE (Deltasone) 20 MG tablet Take 60 mg by mouth in the morning. Take with meals. 10/26/2023 Active Start: 11-14-2017 End: 11-14-2017 take 1 tablet by mouth twice daily prednisone 20 mg oral tablet 11/14/2017 take 1 tablet (20 mg) by oral route 2 times per day x 7 days QUEtiapine 25 mg oral tablet (3 sources) Atypical Antipsychotic take 1 tablet by mouth twice daily QUEtiapine (SEROQUEL) 25 MG tablet Take 25 mg by mouth 2 times daily 0 Active rosuvastatin calcium 10 mg oral tablet (5 sources) HMG-CoA Reductase Inhibitor take 1 tablet by mouth in the morning rosuvastatin (CRESTOR) 10 mg tablet Take 1 tablet (10 mg total) by mouth in the morning. Active terazosin 1 mg oral capsule (5 sources) alpha-Adrenergic Kelsi Start: 024 take 1 capsule by mouth once daily terazosin (HYTRIN) 1 mg capsule Take 1 capsule (1 mg total) by mouth nightly. 30 capsule 10/25/2023 Active tiotropium 0.018 mg inhalant powder (3 sources) Anticholinergic Start: take 1 capsule by inhalation once daily tiotropium (SPIRIVA HANDIHALER) 18 MCG inhalation capsule Inhale 1 capsule into the lungs daily 30 capsule 11 02/21/2019 Active traMADol hydrochloride 50 mg oral tablet (6 sources) Opioid Agonist Start: 019 traMADol HCl 50MG Oral Tablet 07/19/2018 Provider: Start: 05-19-2018 End: 05-19-2018 TRAMADOL 50 mg [facility] 05/19/19 - 05/19/2018 Provider: Start: 11-14-2017 take 1 tablet by jayson th every eight hours as needed for pain tramadol 50 mg oral tablet 11/14/2017 take 1 tablet (50 mg) by oral route every 8 hours as needed for chronic back pain / osteoarthritis (M51.36/M19.90) Start: 11-14-2017 End: 11-14-2017 TRAMADOL 50 mg [facility] 11/15/19 - 11/14/2017 Provider: take 1 tablet by jayson th three times daily as needed tramadol 50 mg oral tablet take 1 tablet by oral route 3 times a day as needed traZODone hydrochloride 100 mg oral tablet (6 sources) Serotonin Reuptake Inhibitor Start: 07-19-2018 traZODone HCl 100MG Oral Tablet 07/19/2018 Provider: Start: 05-19-2018 End: 05-19-2018 TRAZODONE 100 mg [facility] 2018 - 05/19/2018 Provider: Start: 03-13-2018 take 1 tablet by jayson th once daily at bedtime trazodone 100 mg oral tablet 03/13/2018 take 1 tablet (100 mg) by oral route once daily at bedtime Start: 03-13-2018 End: 03-13-2018 TRAZODONE 100 mg MISC 2017 - 03/13/2018 Provider: take 1 tablet by jayson th once daily at bedtime trazodone 100 mg oral tablet take 1 tablet (100 mg) by oral route once daily at bedtime vitamin b12 1 mg oral tablet (9 sources) Vitamin B12 Start: 10-26-2023 End: 04-30-2024 take 1 tablet by mouth in the morning cyanocobalamin 1000 MCG tablet Take 1 tablet (1,000 mcg total) by mouth in the morning. 30 tablet 10/26/2023 Active Completed/Discontinued Medications Medication Drug Class(es) Dates Sig (Normalized) Sig (Original) calcium carbonate 1500 mg oral tablet (3 sources) Start: 09-14-2017 take 1 tablet by mouth twice daily Calcium 600 600 mg calcium (1,500 mg) oral tablet 09/14/2017 take 1 tablet by oral route twice daily Clindamycin (2 sources) Lincosamide Antibacterial Start: 02-13-2018 End: 02-13-2018 CLINDAMYCIN HCL 300MG [facility] 02/13/2018 - 02/13/2018 Provider: Start: 02-13-2018 End: [...] 3 times per day x 14 days VITAMIN D2 50,000UNIT MISC (2 sources) Start: 05-19-2018 End: 05-19-2018 VITAMIN D2 50,000UNIT MISC 05/19/2018 - 05/19/2018 Provider: Start: 09-14-2017 End: 09-14-2017 VITAMIN D2 50,000UNIT MISC 0 09/14/2017 - 09/14/2017 Provider: Problems Active Problems Problem Classification Problem Date Documented Da te Episodic/Chronic Anxiety disorders (16 sources) Generalized anxiety disorder; Translations: [Generalized anxiety disorder] Onset: 7 10-19-2023 Chronic Bacterial infection; unspecified site (7 sources) Bacterial infection, unspecified, in conditions classified elsewhere and of unspecified site; Translations: [Methicillin resistant Staphylococcus aureus in conditions classified elsewhere and of unspecified site] Onset: 8 09-26-2017 Episodic Cancer of cervix (8 sources) Malignant tumor of cervix; Translations: [Malignant neoplasm of cervix uteri, unspecified site] Onset: 9 10-19-2023 Chronic Chronic obstructive pulmonary disease and bronchiectasis (20 sources) Other emphysema; Translations: [Pulmonary emphysema] Onset: 3 Resolved: 4 11-08-2013 Chronic Delirium, dementia, and amnestic and other cognitive disorders (9 sources) Presenile dementia; 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] Onset: 4 10-19-2023 Chronic Diseases of mouth; excluding dental (15 sources) Lesion of tongue; Translations: [Other diseases of tongue] Onset: 7 06-03-2016 Episodic Disorders of lipid metabolism (11 sources) Hyperlipidemia, unspecified; Translations: [Mixed hyperlipidemia] Onset: 2 10-15-2023 Chronic E Codes: Fall (1 source) Unspecified fall, initial encounter; Translations: [UNSPECIFIED FALL INITIAL ENCOUNTER] Onset: 2 Episodic Esophageal disorders (20 sources) Esophageal reflux; Translations: [Gastroesophageal reflux disease] Onset: 2 01-19-2012 Chronic Essential hypertension (20 sources) Unspecified essential hypertension; Translations: [Essential hypertension] Onset: 2 Resolved: 5 04-20-2015 Chronic Fracture of upper limb (1 source) Ill-defined closed fractures of upper limb Episodic Glaucoma (5 sources) Open angle with borderline findings, high risk, bilateral; Translations: [Open angle with borderline findings, high risk] Onset: 7 01-25-2017 Chronic Headache; including migraine (5 sources) Cluster headache; Translations: [Cluster headache syndrome, unspecified, not intractable] 09-26-2017 Chronic Hypertension with complications and secondary hypertension (1 source) Hypertensive urgency; Translations: [Hypertensive urgency] Onset: 4 Chronic Malaise and fatigue (8 sources) Other malaise and fatigue; Translations: [Weakness] Onset: 8 09-26-2017 Episodic Malignant neoplasm without specification of site (5 sources) Malignant neoplastic disease; Translations: [Malignant (primary) neoplasm, unspecified] 09-26-2017 Chronic Mood disorders (20 sources) Depressive disorder; Translations: [Bipolar disorder, unspecified] Onset: 4 11-08-2013 Chronic Nausea and vomiting (6 sources) Nausea; Translations: [Nausea] Onset: 4 09-26-2017 Episodic Nephritis; nephrosis; renal sclerosis (7 sources) Glomerular disorders in diseases classified elsewhere; Translations: [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] Onset: 4 10-31-2023 Chronic Nonspecific chest pain (16 sources) Chest pain, unspecified; Translations: [Chest pain on exertion] Onset: 7 Resolved: 1 11-18-2016 Episodic Osteoarthritis (10 sources) Osteoarthrosis, unspecified whether generalized or localized, site unspecified; Translations: [Osteoarthritis] Onset: 2 01-19-2012 Chronic Osteoporosis (5 sources) Osteoporosis; Translations: [Age-related osteoporosis without current pathological fracture] 09-26-2017 Chronic Other circulatory disease (1 source) Personal history of transient ischemic attack (TIA), and cerebral infarction without residual deficits; Translations: [PERS HX TIA AND CI NO RESID DEFICIT] Onset: 2 Episodic Other connective tissue disease (2 sources) Muscle weakness (generalized) Onset: 8 Episodic Other connective tissue disease (1 source) Myalgia and myositis, unspecified Episodic Other connective tissue disease (13 sources) Fibromyalgia; Translations: [Fibromyalgia] Onset: 4 11-08-2013 Episodic Other connective tissue disease (4 sources) Pain in right foot; Translations: [PAIN IN RIGHT FOOT] Onset: 2 Episodic Other connective tissue disease (5 sources) Increased muscle tone; Translations: [Other specified disorders of muscle] 09-26-2017 Episodic Other connective tissue disease (9 sources) Primary fibromyalgia syndrome; Translations: [Fibromyalgia] Onset: 4 09-26-2017 Episodic Other gastrointestinal disorders (5 sources) Heartburn; Translations: [Heartburn] 09-26-2017 Episodic Other hereditary and degenerative nervous system conditions (1 source) Restless legs; Translations: [Restless leg] Chronic Other hereditary and degenerative nervous system conditions (1 source) Restless legs syndrome (RLS) Chronic Other hereditary and degenerative nervous system conditions (1 source) Restless legs syndrome; Translations: [Restless legs syndrome] Onset: 9 Chronic Other lower respiratory disease (1 source) Shortness of breath Onset: 9 Episodic Other lower respiratory disease (5 sources) Dyspnea; Translations: [Shortness of breath] 09-26-2017 Episodic Other nervous system disorders (1 source) Meralgia paresthetica Chronic Other nervous system disorders (1 source) Other chronic pain Onset: 8 Chronic Other nervous system disorders (1 source) Unsteadiness on feet; Translations: [Unsteadiness on feet] Onset: 4 Episodic Other non-traumatic joint disorders (3 sources) Pain in left knee; Translations: [PAIN IN LEFT KNEE] Onset: 2 Episodic Other non-traumatic joint disorders (1 source) Pain in right ankle and joints of right foot; Translations: [PAIN IN RIGHT ANKLE] Onset: 2 Episodic Other non-traumatic joint disorders (5 sources) Swollen ankle region; Translations: [Effusion, right ankle] 09-26-2017 Episodic Other non-traumatic joint disorders (5 sources) Joint pain; Translations: [Pain in unspecified joint] 09-26-2017 Episodic Other nutritional; endocrine; and metabolic disorders (6 sources) Body Mass Index 50.0-59.9, adult Onset: 8 Chronic Other nutritional; endocrine; and metabolic disorders (3 sources) Body mass index 40+ - severely obese; Translations: [Morbid obesity with BMI of 50.0-59.9, adult] Onset: 4 11-08-2013 Chronic Other nutritional; endocrine; and metabolic disorders (1 source) Morbid (severe) obesity due to excess calories; Translations: [MORBID SEVERE OBES D/T EXCESS LUMA] Onset: 2 Chronic Other nutritional; endocrine; and metabolic disorders (1 source) Body mass index (BMI) 60.0-69.9, adult; Translations: [BODY MASS INDEX BMI 60.0-69.9 ADULT] Onset: 2 Chronic Other nutritional; endocrine; and metabolic disorders (1 source) Body mass index (BMI) 50.0-59.9, adult; Translations: [BODY MASS INDEX BMI 50.0-59.9 ADULT] Onset: 2 Chronic Other nutritional; endocrine; and metabolic disorders (5 sources) Obesity caused by energy imbalance; Translations: [Morbid (severe) obesity due to excess calories] Onset: 4 12-23-2016 Chronic Other nutritional; endocrine; and metabolic disorders (9 sources) Severe obesity; Translations: [Class 3 severe obesity due to excess calories without serious comorbidity in adult] Onset: 4 10-20-2020 Chronic Other nutritional; endocrine; and metabolic disorders (5 sources) Morbid obesity; Translations: [Morbid (severe) obesity due to excess calories] 09-26-2017 Chronic Other upper respiratory disease (6 sources) Chronic rhinitis; Translations: [Chronic rhinitis] Onset: 4 04-26-2023 Chronic Peripheral and visceral atherosclerosis (10 sources) Peripheral vascular disease, unspecified; Translations: [Peripheral vascular disease, unspecified] Onset: 7 Resolved: 1 10-15-2023 Chronic Residual codes; unclassified (1 source) Unspecified sleep apnea Onset: 8 Chronic Residual codes; unclassified (11 sources) Obstructive sleep apnea syndrome; Translations: [Obstructive sleep apnea (adult) (pediatric)] Onset: 1 10-19-2023 Chronic Residual codes; unclassified (2 sources) Hallucinations Onset: 8 Episodic Spondylosis; intervertebral disc disorders; other back problems (2 sources) Degeneration of lumbar or lumbosacral intervertebral disc Onset: 8 Chronic Spondylosis; intervertebral disc disorders; other back problems (8 sources) Chronic low back pain; Translations: [Chronic neck pain] 09-26-2017 Episodic Substance-related disorders (13 sources) Smoker; Translations: [Nicotine dependence, cigarettes, uncomplicated] Onset: 2 Resolved: 3 12-29-2014 Chronic Superficial injury; contusion (1 source) Contusion of left knee, initial encounter; Translations: [CONTUSION LEFT KNEE INITIAL ENC] Onset: 2 Episodic Systemic lupus erythematosus and connective tissue disorders (7 sources) Microscopic polyangiitis; 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] Onset: 4 11-02-2023 Chronic Unclassified (1 source) CONTACT W/AND (SUSP) EXPOS COVID-19; Translations: [CONTACT W/AND (SUSP) EXPOS COVID-19] Onset: 2 Unclassified (3 sources) Antineutrophilic cytoplasmic antibody (ANCA) vasculitis; 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] Onset: 4 Unclassified (2 sources) Immunodeficiency due to drugs; 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] Onset: 4 Unclassified (1 source) ERIN Onset: 4 Unclassified (1 source) Outpatient Infusion Onset: 4 Unclassified (1 source) Arm Swelling Onset: 4 Unclassified (1 source) NAUSEA, CHEST PAIN, SWOLLEN FEET Onset: 4 Past or Other Problems Problem Classification Problem Date Documented Da te Episodic/Chronic Acute and unspecified renal failure (11 sources) Acute kidney failure, unspecified; Translations: [Acute renal failure syndrome] Onset: 4 10-18-2023 Episodic Administrative/social admission (1 source) Other reasons for seeking consultation Onset: 8 Episodic Blindness and vision defects (20 sources) Hypermetropia; Translations: [Hypermetropia, unspecified eye] Onset: 7 12-15-2016 Episodic Deficiency and other anemia (5 sources) Iron deficiency anemia; Translations: [Iron deficiency anemia, unspecified] Onset: 4 10-16-2023 Episodic Deficiency and other anemia (5 sources) Iron deficiency anemia secondary to inadequate dietary iron intake; Translations: [Other iron deficiency anemias] Onset: 4 10-17-2023 Episodic Diabetes mellitus without complication (10 sources) Drug-induced hyperglycemia; Translations: [Hyperglycemia, unspecified] Onset: 1 12-26-2020 Episodic Fluid and electrolyte disorders (6 sources) Hypokalemia; Translations: [Hypokalemia] Onset: 4 10-15-2023 Episodic Gastrointestinal hemorrhage (4 sources) Hemorrhage of anus and rectum; Translations: [Gastrointestinal hemorrhage, unspecified] Onset: 2 Episodic Joint disorders and dislocations; trauma-related (5 sources) Tear of articular cartilage of right knee, current, initial encounter; Translations: [Other tear of cartilage or meniscus of knee, current] Onset: 4 10-16-2023 Episodic Mood disorders (5 sources) Mood disorders Onset: 4 10-19-2023 Noninfectious gastroenteritis (1 source) Noninfective gastroenteritis and colitis, unspecified; Translations: [NONINFECTIVE GE AND COLITIS UNS] Onset: 2 Episodic Nutritional deficiencies (5 sources) Cobalamin deficiency; Translations: [Deficiency of other specified B group vitamins] Onset: 4 10-17-2023 Episodic Other aftercare (4 sources) Other longterm (current) drug therapy; Translations: [OTH CUSTODIAL CURRENT DRUG THERAPY] Onset: 2 Episodic Other aftercare (3 sources) [employer]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; 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] Onset: 4 Episodic Other bone disease and musculoskeletal deformities (1 source) Tietze's disease Onset: 8 Episodic Other bone disease and musculoskeletal deformities (1 source) Other disorders of bone and cartilage Onset: 8 Episodic Other connective tissue disease (2 sources) Fibromyositis; Translations: [Fibromyalgia] Onset: 9 Episodic Other connective tissue disease (1 source) Leg swelling symptom Onset: 4 Episodic Other ear and sense organ disorders (5 sources) Tinnitus of right ear; Translations: [Tinnitus, right ear] Onset: 7 01-22-2019 Episodic Other lower respiratory disease (1 source) [...] region and thigh Onset: 8 Episodic Other non-traumatic joint disorders (5 sources) Pain in right knee; Translations: [Pain in joint, lower leg] Onset: 4 10-16-2023 Episodic Other nutritional; endocrine; and metabolic disorders (3 sources) Obesity; Translations: [Obesity] Onset: 2 Resolved: 4 11-08-2013 Chronic Other screening for suspected conditions (not mental disorders or infectious disease) (8 sources) Screening for diabetes mellitus; Translations: [Special screening for malignant neoplasms of colon] Onset: 7 Resolved: 1 10-20-2020 Episodic Other upper respiratory disease (5 sources) Henry's edema; 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] Onset: 7 06-07-2016 Episodic Other upper respiratory disease (5 sources) Dysphonia; Translations: [Dysphonia] Onset: 7 06-07-2016 Episodic Other upper respiratory disease (5 sources) Deviated nasal septum; Translations: [Deviated nasal septum] Onset: 7 06-07-2016 Episodic Otitis media and related conditions (9 sources) Acute suppurative otitis media without spontaneous rupture of ear drum; Translations: [Acute suppurative otitis media without spontaneous rupture of ear drum, bilateral] Onset: 4 10-16-2023 Episodic Pneumonia (except that caused by tuberculosis or sexually transmitted disease) (5 sources) Bilateral pneumonia; Translations: [Pneumonia, unspecified organism] Onset: 8 07-14-2017 Episodic Residual codes; unclassified (1 source) Family history of other neurological diseases Onset: 8 Episodic Residual codes; unclassified (1 source) Edema Onset: 8 Episodic Residual codes; unclassified (1 source) Memory loss Onset: 8 Episodic Residual codes; unclassified (8 sources) Memory impairment; Translations: [Other amnesia] Onset: 8 02-13-2018 Episodic Residual codes; unclassified (5 sources) Bilateral lower limb edema; Translations: [Localized edema] Onset: 4 10-15-2023 Episodic Respiratory failure; insufficiency; arrest (adult) (5 sources) Acute hypoxemic and hypercapnic respiratory failure; Translations: [Acute respiratory failure with hypoxia] Onset: 9 02-03-2019 Episodic Skin and subcutaneous tissue infections (5 sources) Cellulitis of left hand; Translations: [Cellulitis of left upper limb] Onset: 6 11-16-2015 Episodic Unclassified (1 source) Antineutrophilic cytoplasmic antibody (ANCA) vasculitis; 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 Daniels Result: left voicemail to reschedule Normal [facility] BASIC METABOLIC PANLon 01-21 Anion gap [Moles/Vol] 9 mmol/L Normal 5-15 [facility] Comment on above: Performed By: #### C BCA, CMP, 04637-7 #### [facility] ([id number]) [address] [place] [address] 36945 Calcium [Mass/Vol] 9.5 mg/dL Normal 8.5-10.5 [facility] Comment on above: Performed By: #### C BCA, CMP, 77168-0 #### [facility] ([id number]) [address] [place] [address] 79470 Chloride [Moles/Vol] 101 mmol/L Normal 98-109 [facility] Comment on above: Performed By: #### C BCA, CMP, 93880-5 #### [facility] ([id number]) [address] [place] [address] 79523 CO2 [Moles/Vol] 31 mmol/L Normal 22-32 [facility] Comment on above: Performed By: #### C BCA, CMP, 59555-8 #### [facility] ([id number]) [address] [place] [address] 81912 Creatinine [Mass/Vol] 1.63 mg/dL High 0.40-1.00 [facility] Comment on above: Result Comment: METH OD TRACEABLE TO IDMS STANDARD Performed By: #### C BCA, CMP, 85346-1 #### [facility] ([id number]) [address] [place] [address] 41392 GFR/1.73 sq M.predicted among non-blacks MDRD (S/P/Bld) [Vol rate/Area] 36 mL/min/{1.73_m2} Low >59 [facility] Comment on above: Result Comment: Reported eGFR is based on the CKD-EPI 2020 equation that does not use a race coefficient. Performed By: #### C VIRGILIO [facility], 82599-1 #### [facility] ([id number]) [address] [place] [address] 07586 Glucose [Mass/Vol] 84 mg/dL Normal 65-99 [facility] Comment on above: Performed By: #### C VIRGILIO [facility], #### [facility] ([id number]) [address] [place] [address] 34744 Potassium [Moles/Vol] 4.3 mmol/L Normal 3.5-5.0 [facility] Comment on above: Performed By: #### C VIRGILIO [facility], 63879-7 #### [facility] ([id number]) [address] [place] [address] 58516 Sodium [Moles/Vol] 141 mmol/L Normal 134-146 [facility] Comment on above: Performed By: #### C VIRGILIO [facility], 23059-4 #### [facility] ([id number]) [address] [place] [address] 04454 Urea nitrogen [Mass/Vol] 34 mg/dL High 5-23 [facility] Comment on above: Performed By: #### C VIRGILIO [facility], 83045-3 #### [facility] ([id number]) [address] [place] [address] 63588 BASIC METABOLIC PANLon 01-11 Anion gap [Moles/Vol] 12 mmol/L Normal 5-15 [facility] Comment on above: Performed By: #### 8 9579-7 #### [facility] ([id number]) [address] [place] [address] 30562 Calcium [Mass/Vol] 9.4 mg/dL Normal 8.5-10.5 [facility] Comment on above: Performed By: #### 8 9579-7 #### [facility] ([id number]) [address] [place] [address] 81354 Chloride [Moles/Vol] 104 mmol/L Normal 98-109 [facility] Comment on above: Performed By: #### 8 9579-7 #### [facility] ([id number]) [address] [place] [address] 48594 CO2 [Moles/Vol] 28 mmol/L Normal 22-32 [facility] Comment on above: Performed By: #### 8 9579-7 #### [facility] ([id number]) [address] [place] [address] 96499 Creatinine [Mass/Vol] 1.22 mg/dL High 0.40-1.00 [facility] Comment on above: Result Comment: METH OD TRACEABLE TO IDMS STANDARD Performed By: #### 8 9579-7 #### [facility] ([id number]) [address] [place] [address] 51852 GFR/1.73 sq M.predicted among non-blacks MDRD (S/P/Bld) [Vol rate/Area] 51 mL/min/{1.73_m2} Low >59 [facility] Comment on above: Result Comment: Reported eGFR is based on the CKD-EPI 2020 equation that does not use a race coefficient. Performed By: #### 8 9579-7 #### [facility] ([id number]) [address] [place] [address] 24996 Glucose [Mass/Vol] 100 mg/dL High 65-99 [facility] Comment on above: Performed By: #### 8 9579-7 #### [facility] ([id number]) [address] [place] [address] 34860 Potassium [Moles/Vol] 3.8 mmol/L Normal 3.5-5.0 [facility] Comment on above: Performed By: #### 8 9579-7 #### [facility] ([id number]) [address] [place] [address] 21024 Sodium [Moles/Vol] 144 mmol/L Normal 134-146 [facility] Comment on above: Performed By: #### 8 9579-7 #### [facility] ([id number]) [address] [place] [address] 78266 Urea nitrogen [Mass/Vol] 17 mg/dL Normal 5-23 [facility] Comment on above: Performed By: #### 8 9579-7 #### [facility] ([id number]) [address] [place] [address] 89453 COMPLETE BLOOD COUNT 01-11 Erythrocyte distribution width (RBC) [Ratio] 16.7 % High 11.5-15.0 [facility] Comment on above: Performed By: #### 8 9579-7 #### [facility] ([id number]) [address] [place] [address] 65559 Hematocrit (Bld) [Volume fraction] 33.6 % Low 35-47 [facility] Comment on above: Performed By: #### 8 9579-7 #### [facility] ([id number]) [address] [place] [address] 00097 Hemoglobin (Bld) [Mass/Vol] 11.2 g/dL Low 11.7-15.5 [facility] Comment on above: Performed By: #### 8 9579-7 #### [facility] ([id number]) [address] [place] [address] 57605 MCH (RBC) [Entitic mass] 28.8 pg Normal 27-34 [facility] Comment on above: Performed By: #### 8 9579-7 #### [facility] ([id number]) [address] [place] [address] 36143 MCHC (RBC) [Mass/Vol] 33.3 g/dL Normal 32-36 [facility] Comment on above: Performed By: #### 8 9579-7 #### [facility] ([id number]) [address] [place] [address] 40263 MCV (RBC) [Entitic vol] 87 fL Normal 80-100 [facility] Comment on above: Performed By: #### 8 9579-7 #### [facility] ([id number]) [address] [place] [address] 95655 Platelet mean volume (Bld) [Entitic vol] 9.7 fL Normal 7-12 [facility] Comment on above: Performed By: #### 8 9579-7 #### [facility] ([id number]) [address] [place] [address] 18431 Platelets (Bld) [#/Vol] 268 10*3/uL Normal 150-450 [facility] Comment on above: Performed By: #### 8 9579-7 #### [facility] ([id number]) [address] [place] [address] 64800 RBC COUNT 3.88 X10E12/L Normal 3.80-5.20 [facility] Comment on above: Performed By: #### 8 9579-7 #### [facility] ([id number]) [address] [place] [address] 46598 WBC (Bld) [#/Vol] 8.8 10*3/uL Normal 4.0-11.0 [facility] Comment on above: Performed By: #### 8 9579-7 #### [facility] ([id number]) [address] [place] [address] [place] [address] Creatinine (U) [Mass/Vol]on 01-12-2024 URINE CREATININE,RDM 107.95 mg/dL Normal Pr [facility] Comment on above: Performed By: #### Shahla POOLE CMP, 57107-8 #### [facility] ([id number]) [address] [place] [address] 66028 HBV core Ab IA Qlon 01-12-20 ANTI HBc Negative Normal NEG [facility] Comment on above: Performed By: #### C EDEL POOLE, #### [facility] ([id number]) [address] [place] [address] 37408 HBV surface Ab IA Qnon 01-11 Anti HBs quant. <8.00 Normal [facility] Comment on above: Result Comment: Vacc inated: >=12mIU/mL, Positive (Immune) Unvaccinated: <8mIU/mL, Negative (Not Immune) 8-11.99 mIU/mL: Indeterminate, (Considered Not Immune) Performed By: #### C VIRGILIO [facility], 67680-5 #### [facility] ([id number]) [address] [place] [address] 08029 HBV surface Ag IA Qlon 01-11 HEPATITIS B SURF AG Negative Normal NEG [facility] Comment on above: Performed By: #### C VIRGILIO [facility], #### [facility] ([id number]) [address] [place] [address] 43923 MAGNESIUMon 01-12-2024 Magnesium [Mass/Vol] 1.6 mg/dL Low 1.8-2.6 [facility] Comment on above: Performed By: #### 8 9579-7 #### [facility] ([id number]) [address] [place] [address] 68358 PHOSPHORUSon 01-12-2024 Phosphate [Mass/Vol] 3.6 mg/dL Normal 2.4-4.9 [facility] Comment on above: Performed By: #### 8 9579-7 #### [facility] ([id number]) [address] [place] [address] 29193 PROTEIN CREAT RATIOon 2023 RANDOM URINE PROTEIN 4520 mg/L High <120 [facility] Comment on above: Performed By: #### C VIRGILIO [facility], #### [facility] ([id number]) [address] [place] [address] 42408 U/PRO/DIRECTOR OF PSYCHOLOGY RATIO CALC 4.15 High <0.2 [facility] Comment on above: Result Comment: Neph rotic Syndrome is associated with ratios >3.5 Performed By: #### C VIRGILIO [facility], 10021-4 #### [facility] ([id number]) [address] [place] [address] 47304 URINE CREATININE,RDM 108.96 mg/dL Normal Pr [facility] Comment on above: Performed By: #### Shahla POOLE [facility], 56784-0 #### [facility] ([id number]) [address] [place] [address] 45931 Parathyrin.intact [Mass/Vol] on 01-12-2024 PTH INTACT 69 pg/mL Normal 12-88 [facility] Comment on above: Performed By: #### C VIRGILIO [facility], #### [facility] ([id number]) [address] [place] [address] 32519 Protein (U) [Mass/Vol]on RANDOM URINE PROTEIN 4560 mg/L High <120 [facility] Comment on above: Performed By: #### C VIRGILIO [facility], 07470-8 #### [facility] ([id number]) [address] [place] [address] 73292 URINALYSISon 01-12-2024 Bilirubin Ql (U) Negative Normal NEG [facility] Comment on above: Performed By: #### C VIRGILIO, CMP, #### [facility] ([id number]) [address] [place] [address] 54489 BLOOD/HGB Small Abnormal NEG [facility] Comment on above: Performed By: #### C VIRGILIO, CMP, #### [facility] ([id number]) [address] [place] [address] [place] [address] Color (U) YELLOW Normal YELLOW [facility] Comment on above: Performed By: #### C BCA, CMP, #### [facility] ([id number]) [address] [place] [address] 66815 Glucose Ql (U) Negative Normal NEG [facility] Comment on above: Performed By: #### C VIRGILIO, CMP, #### [facility] ([id number]) [address] [place] [address] [place] [address] Hyaline casts LM Ql (Urine sed) 1 /lpf Normal 0-2 [facility] Comment on above: Performed By: #### C VIRGILIO, CMP, #### [facility] ([id number]) [address] [place] [address] [place] [address] Ketones Ql (U) Negative Normal NEG [facility] Comment on above: Performed By: #### C BCA, CMP, #### [facility] ([id number]) [address] [place] [address] [place] [address] Leukocyte esterase Test strip Ql (U) Negative Normal NEG [facility] Comment on above: Performed By: #### C VIRGILIO, CMP, #### [facility] ([id number]) [address] [place] [address] [place] [address] MUCOUS PRESENT Abnormal NONE [facility] Comment on above: Performed By: #### C VIRGILIO, CMP, #### [facility] ([id number]) [address] [place] [address] 36157 Nitrite Ql (U) Negative Normal NEG [facility] Comment on above: Performed By: #### C EDEL POOLE, #### [facility] ([id number]) [address] [place] [address] 63450 pH (U) 6.5 [pH] Normal 5.0-8.5 [facility] Comment on above: Performed By: #### C EDEL POOLE, #### [facility] ([id number]) [address] [place] [address] 14466 Protein Ql (U) 300 mg/dL Abnormal NEG [facility] Comment on above: Performed By: #### Shahla POOLE CMP, #### [facility] ([id number]) [address] [place] [address] R.B.CELLS 0 /hpf Normal 0-5 [facility] Comment on above: Performed By: #### Shahla POOLE [facility], #### [facility] ([id number]) [address] [place] [address]96 Specific gravity (U) [Rel density] 1.015 Normal 1.003-1.035 [facility] Comment on above: Performed By: #### Shahla POOLE CMP, #### [facility] ([id number]) [address] [place] [address]69 SQUAMOUS EPITHELIUM 1 /hpf Normal 0-5 [facility] Comment on above: Performed By: #### Shahla POOLE CMP, #### [facility] ([id number]) [address] [place] [address]3724 TURBIDITY CLEAR Normal CLEAR [facility] Comment on above: Performed By: #### Shahla POOLE CMP, #### [facility] ([id number]) [address] [place] [address] Urobilinogen (U) [Mass/Vol] mg/dL Normal <1.1 [facility] Comment on above: Performed By: #### Shahla POOLE [facility], 39631-1 #### [facility] ([id number]) [address] [place] [address]6565 W.B.CELLS 2 /hpf Normal 0-5 [facility] Comment on above: Performed By: #### Shahla POOLE [facility], 29220-0 #### [facility] ([id number]) [address] [place] [address]86 Vitamin D+Metabolites [Mass/ Vol]on 01-12-2024 VITAMIN D 25 HYD TOT 23.5 ng/mL Low 30-100 [facility] Comment on above: Result Comment: Vitamin D status 25 [place] Vitamin D Deficiency <20 ng/mL Insufficiency 20-29 ng/mL Sufficiency 30-100 ng/mL Toxicity >100 ng/mL NOTE: A pediatric reference range has not been established by the dynamite cartridge crimper of this kit. The [place] [employer] recommends a Vitamin D level of = or >20ng/mL in infants and children. Performed By: #### Shahla POOLE [facility], #### [facility] ([id number]) [address] [place] [address] COMPLETE BLOOD COUNTon 12-18 Erythrocyte distribution width (RBC) [Ratio] 16.7 % High 11.5-15.0 [facility] Comment on above: Performed By: #### Shahla POOLE CMP, , 2777-1, 1987- #### [facility] ([id number]) [address] [place] [address] Hematocrit (Bld) [Volume fraction] 30.1 % Low 35-47 [facility] Comment on above: Performed By: #### C VIRGILIO CMP, , 2776-04, 1987-08 #### [facility] ([id number]) [address], [address] [place] [address] Hemoglobin (Bld) [Mass/Vol] 9.6 g/dL Low 11.7-15.5 [facility] Comment on above: Performed By: #### C VIRGILIO, CMP, , 2776-04, 1987-08 #### [facility] ([id number]) [address], [address] [place] [address] MCH (RBC) [Entitic mass] 27.3 pg Normal 27-34 [facility] Comment on above: Performed By: #### Shahla POOLE, CMP, , 2776-04, 1987-08 #### [facility] ([id number]) [address], [address] [place] [address] MCHC (RBC) [Mass/Vol] 32.0 g/dL Normal 32-36 [facility] Comment on above: Performed By: #### Shahla BCA, CMP, , 2776-04, 1987-08 #### [facility] ([id number]) [address], [address] [place] [address] MCV (RBC) [Entitic vol] 86 fL Normal 80-100 [facility] Comment on above: Performed By: #### Shahla BCA, CMP, , 2776-04, 1987-08 #### [facility] ([id number]) [address], [address] [place] [address] Platelet mean volume (Bld) [Entitic vol] 9.1 fL Normal 7-12 [facility] Comment on above: Performed By: #### Shahla BCA, CMP, , 2776-04, 1987-08 #### [facility] ([id number]) [address], [address] [place] [address] Platelets (Bld) [#/Vol] 361 10*3/uL Normal 150-450 [facility] Comment on above: Performed By: #### C BCA, CMP, , 2776-04, 1987-08 #### [facility] ([id number]) [address], [address] [place] [address] RBC COUNT 3.52 X10E12/L Low 3.80-5.20 [facility] Comment on above: Performed By: #### C BCA, CMP, , 2776-04, 1987-08 #### [facility] ([id number]) [address], [address] [place] [address] WBC (Bld) [#/Vol] 8.2 10*3/uL Normal 4.0-11.0 [facility] Comment on above: Performed By: #### C BCA, CMP, , 2776-04, 1987-08 #### [facility] ([id number]) [address], [address] [place] [address] COMPREHENSIVE METABOLIC PANE Phu 12-19-2023 Albumin [Mass/Vol] 3.4 g/dL Normal 3.2-5.3 [facility] Comment on above: Performed By: #### C BCA, CMP, , 2776-04, 1987-08 #### [facility] ([id number]) [address], [address] [place] [address] ALP [Catalytic activity/Vol] 60 U/L Normal 39-130 [facility] Comment on above: Performed By: #### C BCA, CMP, , 2776-04, 1987-08 #### [facility] ([id number]) [address], [address] [place] [address] ALT [Catalytic activity/Vol] 12 U/L Normal 0-31 [facility] Comment on above: Performed By: #### C BCA, CMP, , 2776-04, 1987-08 #### [facility] ([id number]) [address], [address] [place] [address] Anion gap [Moles/Vol] 9 mmol/L Normal 5-15 [facility] Comment on above: Performed By: #### C BCA, CMP, , 2776-04, 1987-08 #### [facility] ([id number]) [address], [address] [place] [address] AST [Catalytic activity/Vol] 13 U/L Normal 0-41 [facility] Comment on above: Performed By: #### C BCA, CMP, , 2776-04, 1987-08 #### [facility] ([id number]) [address], [address] [place] [address] Bilirubin [Mass/Vol] 0.4 mg/dL Normal 0.3-1.2 [facility] Comment on above: Performed By: #### C BCA, CMP, , 2776-04, 1987-08 #### [facility] ([id number]) [address], [address] [place] [address] Calcium [Mass/Vol] 9.5 mg/dL Normal 8.5-10.5 [facility] Comment on above: Performed By: #### C BCA, CMP, , 2776-04, 1987-08 #### [facility] ([id number]) [address], [address] [place] [address] Chloride [Moles/Vol] 105 mmol/L Normal 98-109 [facility] Comment on above: Performed By: #### C BCA, CMP, , 2776-04, 1987-08 #### [facility] ([id number]) [address], [address] [place] [address] CO2 [Moles/Vol] 28 mmol/L Normal 22-32 [facility] Comment on above: Performed By: #### C EDEL POOLE, , 2776-04, 1987-08 #### [facility] ([id number]) [address], [address] [place] [address] Creatinine [Mass/Vol] 1.23 mg/dL High 0.40-1.00 [facility] Comment on above: Result Comment: METH OD TRACEABLE TO IDMS STANDARD Performed By: #### C EDEL POOLE, , 2776-04, 1987-08 #### [facility] ([id number]) [address], [facility] [address] [place] [address] GFR/1.73 sq M.predicted among non-blacks MDRD (S/P/Bld) [Vol rate/Area] 51 mL/min/{1.73_m2} Low >59 [facility] Comment on above: Result Comment: Reported eGFR is based on the CKD-EPI 2020 equation that does not use a race coefficient. Performed By: #### C EDEL POOLE, , 2776-04, 1987-08 #### [facility] ([id number]) [address], [address] [place] [address] Glucose [Mass/Vol] 89 mg/dL Normal 65-99 [facility] Comment on above: Performed By: #### C VIRGILIO CMP, , 2776-04, 1987-08 #### [facility] ([id number]) [address], [address] [place] [address] Potassium [Moles/Vol] 4.9 mmol/L Normal 3.5-5.0 [facility] Comment on above: Performed By: #### C BCA, CMP, , 2776-04, 1987-08 #### [facility] ([id number]) [address], [address] [place] [address] Protein [Mass/Vol] 6.0 g/dL Normal 6.0-8.0 [facility] Comment on above: Performed By: #### C BCA, CMP, , 2776-04, 1987-08 #### [facility] ([id number]) [address], [address] [place] [address] Sodium [Moles/Vol] 142 mmol/L Normal 134-146 [facility] Comment on above: Performed By: #### C BCA, CMP, , 2776-04, 1987-08 #### [facility] ([id number]) [address], [address] [place] [address] Urea nitrogen [Mass/Vol] 21 mg/dL Normal 5-23 [facility] Comment on above: Performed By: #### C BCA, CMP, , 2776-04, 1987-08 #### [facility] ([id number]) [address], [address] [place] [address] CRP [Mass/Vol]on 12-19-2023 C REACTIVE PROTEIN 0.8 mg/dL High 0.000-0.744 [facility] Comment on above: Performed By: #### C BCA, CMP, , 2776-04, 1987-08 #### [facility] ([id number]) [address], [address] [place] [address] ESR Photometric method (Bld) [Velocity]on 12-19-2023 ESR, ERYTHROCYTE SEDIMENTATION RATE 67 mm/h High 0-30 [facility] Comment on above: Performed By: #### C BCA, CMP, , 2776-04, 1987-08 #### [facility] ([id number]) [address], [address] [place] [address] Follow-Upon 12-19-2023 Follow-Up [id number] Mckeon 1965 F Date Provider Department Center 12/19/2023 215-ELIZABETH HI I VACF [facility] No family history on file Level of Service:08108 [place] OFFICE/OUTPATIENT ESTABLISHED LOW MDM 20 MIN (GC) Reason for Visit and Comments: Follow-up [[id number]] Normal [facility] Neutrophil cytoplasmic Ab pa selvin IF (S)on 12-19-2023 c-ANCA Negative Normal Negative [facility] Comment on above: Performed By: #### C BCA, CMP, , 2776-04, 1987-08 #### [facility] ([id number]) [address] [place] [address] p-ANCA Positive Abnormal Negative [facility] Comment on above: Result Comment: NOTE Positive for pANCA pattern by immunofluorescence. Suggest further testing for anti-myeloperoxidase (anti-MPO) antibodies, if clinically indicated. ADDITIONAL INFORMATION This test was developed and its performance characteristics determined by [facility] in a manner consistent with CLIA requirements. This test has not been cleared or approved by the U.S. Food and Drug Administration. Test Performed by: [place] [address] Printing Press Operator Apprentice: Ledy Son Ph.D.; CLIA# [id number] Performed By: #### C BCA, CMP, , 2776-04, 1987-08 #### [facility] ([id number]) [address], [address] [place] [address] CBC AND AUTO DIFFon 11-07-19 24 ABSOLUTE BASOPHIL 0.0 X10E9/L Normal 0.0-0.2 [facility] Comment on above: Performed By: #### C BCA, CMP, , 2776-04, 1987-08 #### [facility] ([id number]) [address] [place] [address] ABSOLUTE NEUTROPHIL 12.2 X10E9/L High 1.5-6.6 [facility] Comment on above: Performed By: #### C VIRGILIO CMP, , 2776-04, 1987-08 #### [facility] ([id number]) [address], [address] [place] [address] Basophils/100 WBC (Bld) 0.2 % Normal [facility] Comment on above: Performed By: #### C VIRGILIO, CMP, , 2776-04, 1987-08 #### [facility] ([id number]) [address], [address] [place] [address] Eosinophils (Bld) [#/Vol] 0.0 10*3/uL Normal 0.0-0.4 [facility] Comment on above: Performed By: #### C VIRGILIO CMP, , 2776-04, 1987-08 #### [facility] ([id number]) [address], [address] [place] [address] Eosinophils/100 WBC (Bld) 0.0 % Normal [facility] Comment on above: Performed By: #### C VIRGILIO, CMP, , 2776-04, 1987-08 #### [facility] ([id number]) [address], [address] [place] [address] Erythrocyte distribution width (RBC) [Ratio] 15.6 % High 11.5-15.0 [facility] Comment on above: Performed By: #### C VIRGILIO, CMP, , 2776-04, 1987-08 #### [facility] ([id number]) [address], [address] [place] [address] Hematocrit (Bld) [Volume fraction] 32.0 % Low 35-47 [facility] Comment on above: Performed By: #### C VIRGILIO, CMP, , 2776-04, 1987-08 #### [facility] ([id number]) [address], [address] [place] [address] Hemoglobin (Bld) [Mass/Vol] 10.4 g/dL Low 11.7-15.5 [facility] Comment on above: Performed By: #### C VIRGILIO, CMP, , 2776-04, 1987-08 #### [facility] ([id number]) [address], [facility] [address] [place] [address] Lymphocytes (Bld) [#/Vol] 0.3 10*3/uL Low 1.0-3.5 [facility] Comment on above: Performed By: #### C BCA, CMP, , 2776-04, 1987-08 #### [facility] ([id number]) [address], [facility] [address] [place] [address] Lymphocytes/100 WBC (Bld) 2.6 % Normal [facility] Comment on above: Performed By: #### Shahla BCA, CMP, , 2776-04, 1987-08 #### [facility] ([id number]) [address], [address] [place] [address] MCH (RBC) [Entitic mass] 27.6 pg Normal 27-34 [facility] Comment on above: Performed By: #### Shahla BCA, CMP, , 2776-04, 1987-08 #### [facility] ([id number]) [address], [address] [place] [address] MCHC (RBC) [Mass/Vol] 32.4 g/dL Normal 32-36 [facility] Comment on above: Performed By: #### Shahla BCA, CMP, , 2776-04, 1987-08 #### [facility] ([id number]) [address], [address] [place] [address] MCV (RBC) [Entitic vol] 85 fL Normal 80-100 [facility] Comment on above: Performed By: #### C BCA, CMP, , 2776-04, 1987-08 #### [facility] ([id number]) [address], [address] [place] [address] Monocytes (Bld) [#/Vol] 0.2 10*3/uL Normal 0-0.9 [facility] Comment on above: Performed By: #### Shahla BCA, CMP, , 2776-04, 1987-08 #### [facility] ([id number]) [address], [address] [place] [address] Monocytes/100 WBC (Bld) 1.8 % Normal [facility] Comment on above: Performed By: #### Shahla BCA, CMP, , 2776-04, 1987-08 #### [facility] ([id number]) [address], [address] [place] [address] Neutrophils/100 WBC (Bld) 95.4 % Normal [facility] Comment on above: Performed By: #### Shahla BCA, CMP, , 2776-04, 1987-08 #### [facility] ([id number]) [address], [address] [place] [address] Platelet mean volume (Bld) [Entitic vol] 9.1 fL Normal 7-12 [facility] Comment on above: Performed By: #### Shahla BCA, CMP, , 2776-04, 1987-08 #### [facility] ([id number]) [address], [address] [place] [address] Platelets (Bld) [#/Vol] 183 10*3/uL Normal 150-450 [facility] Comment on above: Performed By: #### Shahla BCA, CMP, , 2776-04, 1987-08 #### [facility] ([id number]) [address], [address] [place] [address] RBC COUNT 3.76 X10E12/L Low 3.80-5.20 [facility] Comment on above: Performed By: #### C BCA, CMP, , 2776-04, 1987-08 #### [facility] ([id number]) [address], [address] [place] [address] WBC (Bld) [#/Vol] 12.8 10*3/uL High 4.0-11.0 [facility] Comment on above: Performed By: #### C BCA, CMP, , 2776-04, 1987-08 #### [facility] ([id number]) [address], [address] [place] [address] [facility] 11-07-2023 Albumin [Mass/Vol] 3.5 g/dL Normal 3.2-5.3 [facility] Comment on above: Performed By: #### C BCA, CMP, , 2776-04, 1987-08 #### [facility] ([id number]) [address], [address] [place] [address] ALP [Catalytic activity/Vol] 46 U/L Normal 39-130 [facility] Comment on above: Performed By: #### C BCA, CMP, , 2776-04, 1987-08 #### [facility] ([id number]) [address], [address] [place] [address] ALT [Catalytic activity/Vol] 31 U/L Normal 0-31 [facility] Comment on above: Performed By: #### C BCA, CMP, , 2776-04, 1987-08 #### [facility] ([id number]) [address], [address] [place] [address] Anion gap [Moles/Vol] 9 mmol/L Normal 5-15 [facility] Comment on above: Performed By: #### C BCA, CMP, , 2776-04, 1987-08 #### [facility] ([id number]) [address], [address] [place] [address] AST [Catalytic activity/Vol] 10 U/L Normal 0-41 [facility] Comment on above: Performed By: #### C BCA, CMP, , 2776-04, 1987-08 #### [facility] ([id number]) [address], [address] [place] [address] Bilirubin [Mass/Vol] 0.5 mg/dL Normal 0.3-1.2 [facility] Comment on above: Performed By: #### C BCA, CMP, , 2776-04, 1987-08 #### [facility] ([id number]) [address], [address] [place] [address] Calcium [Mass/Vol] 9.1 mg/dL Normal 8.5-10.5 [facility] Comment on above: Performed By: #### C BCA, CMP, , 2776-04, 1987-08 #### [facility] ([id number]) [address], [address] [place] [address] Chloride [Moles/Vol] 104 mmol/L Normal 98-109 [facility] Comment on above: Performed By: #### C BCA, CMP, , 2776-04, 1987-08 #### [facility] ([id number]) [address] [place] [address] CO2 [Moles/Vol] 26 mmol/L Normal 22-32 [facility] Comment on above: Performed By: #### C BCA, CMP, , 2776-04, 1987-08 #### [facility] ([id number]) [address], [address] [place] [address] Creatinine [Mass/Vol] 1.60 mg/dL High 0.40-1.00 [facility] Comment on above: Result Comment: METH OD TRACEABLE TO IDMS STANDARD Performed By: #### C EDEL POOLE, , 2776-04, 1987-08 #### [facility] ([id number]) [address], [address] [place] [address] GFR/1.73 sq M.predicted among non-blacks MDRD (S/P/Bld) [Vol rate/Area] 37 mL/min/{1.73_m2} Low >59 [facility] Comment on above: Result Comment: Reported eGFR is based on the CKD-EPI 2020 equation that does not use a race coefficient. Performed By: #### C EDEL POOLE, , 2776-04, 1987-08 #### [facility] ([id number]) [address], [address] [place] [address] Glucose [Mass/Vol] 119 mg/dL High 65-99 [facility] Comment on above: Performed By: #### C EDEL POOLE, , 2776-04, 1987-08 #### [facility] ([id number]) [address], [address] [place] [address] Potassium [Moles/Vol] 5.2 mmol/L High 3.5-5.0 [facility] Comment on above: Performed By: #### C EDEL POOLE, , 2776-04, 1987-08 #### [facility] ([id number]) [address], [address] [place] [address] Protein [Mass/Vol] 5.3 g/dL Low 6.0-8.0 [facility] Comment on above: Performed By: #### C EDEL POOLE, , 2776-04, 1987-08 #### [facility] ([id number]) [address], [address] [place] [address] Sodium [Moles/Vol] 139 mmol/L Normal 134-146 [facility] Comment on above: Performed By: #### C BCA, CMP, 54377-6, 2776-04, 1987-08 #### [facility] ([id number]) [address] [place] [address] Urea nitrogen [Mass/Vol] 52 mg/dL High 5-23 [facility] Comment on above: Performed By: #### C BCA, CMP, 91128-1, 2776-04, 1987-08 #### [facility] ([id number]) [address] [place] [address] Follow-Upon 11-07-2023 Follow-Up [id number] Mckeon 1965 F Date Provider Department Center 11/07/2023 1233-CAMPOS BLACKMAN[facility]HE[facility] No family history on file Level of Service:78118 [place] OFFICE/OUTPATIENT ESTABLISHED MOD MDM 30 MIN () Reason for Visit and Comments: Follow-up [[id number]] - [facility] follow up Concerns: States was told to due TB test; no further concerns Normal [facility] M. tuberculosis stim IFN-g p tiffanie (Bld)on 11-07-2023 Mitogen minus Nil Result 0.07 IU/mL Normal [facility] Nil Result 0.01 IU/mL Normal [facility] Comment on above: Result Comment: NOTE Test Performed by: [address] [address] Printing Press Operator Apprentice: Ledy Son Ph.D.; CLIA# [id number] QuantiFERON-Tb Gold Plus Result Indeterminate Abnormal Negative [facility] Comment on above: Result Comment: NOTE Indeterminate due to a low interferon-gamma level in the mitogen (positive control) tube. This may occur due to a low lymphocyte count, reduced lymphocyte activity or inability of the patient's lymphocytes to generate interferon-gamma. The reference range for the 'Mitogen minus Nil Result' is >=0.5 IU/mL. TB1 Ag minus Nil Result 0.00 IU/mL Normal [facility] TB2 Ag minus Nil Result 0.00 IU/mL Normal [facility] Orders Onlyon 11-06-2023 Orders Only [id number] Dov,Ter ri L 1965 F Date Provider Department Center 11/06/2023 1644-PORSHA JANE [facility] No family history on file Normal [facility] Orders Only [id number] Dov,Ter ri L 1965 F Date Provider Department [place] 11/06/2023 190-ROGER WRAY [facility] No family history on file Normal [facility] Orders Only [id number] Dov,Ter ri L 1965 F Date Provider Department [place] 11/06/2023 215-ELIZABETH HI I [facility] No family history on file Normal [facility] BASIC METABOLIC PANLon 11-01 Anion gap [Moles/Vol] 9 mmol/L Normal 5-15 [facility] Comment on above: Performed By: #### 8 9579-7 #### [facility] ([id number]) [address] [place] [address] Calcium [Mass/Vol] 8.5 mg/dL Normal 8.5-10.5 [facility] Comment on above: Performed By: #### 8 9579-7 #### [facility] ([id number]) [address] [place] [address] Chloride [Moles/Vol] 108 mmol/L Normal 98-109 [facility] Comment on above: Performed By: #### 8 9579-7 #### [facility] ([id number]) [address] [place] [address] CO2 [Moles/Vol] 24 mmol/L Normal 22-32 [facility] Comment on above: Performed By: #### 8 9579-7 #### [facility] ([id number]) [address] [place] [address] Creatinine [Mass/Vol] 1.59 mg/dL High 0.40-1.00 [facility] Comment on above: Result Comment: METH OD TRACEABLE TO IDMS STANDARD Performed By: #### 8 9579-7 #### [facility] ([id number]) [address] [place] [address] GFR/1.73 sq M.predicted among non-blacks MDRD (S/P/Bld) [Vol rate/Area] 37 mL/min/{1.73_m2} Low >59 [facility] Comment on above: Result Comment: Reported eGFR is based on the CKD-EPI 2020 equation that does not use a race coefficient. Performed By: #### 8 9579-7 #### [facility] ([id number]) [address] [place] [address] Glucose [Mass/Vol] 109 mg/dL High 65-99 [facility] Comment on above: Performed By: #### 8 9579-7 #### [facility] ([id number]) [address] [place] [address]12 Potassium [Moles/Vol] 3.9 mmol/L Normal 3.5-5.0 [facility] Comment on above: Performed By: #### 8 9579-7 #### [facility] ([id number]) [address] [place] [address]885 Sodium [Moles/Vol] 141 mmol/L Normal 134-146 [facility] Comment on above: Performed By: #### 8 9579-7 #### [facility] ([id number]) [address] [place] [address]393 Urea nitrogen [Mass/Vol] 40 mg/dL High 5-23 [facility] Comment on above: Performed By: #### 8 9579-7 #### [facility] ([id number]) [address] [place] [address] Orders Onlyon 11-01-2023 Orders Only [id number] Nelson L 1965 F Date Provider Department [place] 11/01/2023 Luis A-JANE STORY DCC INF DCC No family history on file [facility] Orders Onlyon 10-27-2023 Orders Only [id number] Nelson 1965 F Date Provider Department [place] 10/27/2023 [facility] family history on file [facility] 36on 10-25-2023 36 Called, left message for patient to call and make an appointment. [facility] 36 Patient was seen by inpatient rheumatology service with Dr. 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 Staff to kindly call patient to set up an appointment with Dr. Rashaad Phelan with Dr. Hi at [facility]. Patient phone number in [facility] chart H: [phone] C: [phone] Patient's address may have also changed. Normal [facility] CBC AND AUTO DIFFon 10-25-19 24 ABSOLUTE BASOPHIL 0.1 X10E9/L Normal 0.0-0.2 [facility] Comment on above: Performed By: #### C BCA, CMP, , 2776-04, 1987-08 #### [facility] ([id number]) [address] [place] [address] ABSOLUTE NEUTROPHIL 6.5 X10E9/L Normal 1.5-6.6 [facility] Comment on above: Performed By: #### C BCA, CMP, , 2776-04, 1987-08 #### [facility] ([id number]) [address], [address] [place] [address] Basophils/100 WBC (Bld) 0.6 % Normal [facility] Comment on above: Performed By: #### C BCA, CMP, , 2776-04, 1987-08 #### [facility] ([id number]) [address], [address] [place] [address] Eosinophils (Bld) [#/Vol] 0.0 10*3/uL Normal 0.0-0.4 [facility] Comment on above: Performed By: #### C BCA, [facility], , 2776-04, 1987-08 #### [facility] ([id number]) [address], [address] [place] [address] Eosinophils/100 WBC (Bld) 0.4 % Normal [facility] Comment on above: Performed By: #### C VIRGILIO, [facility], , 2776-04, 1987-08 #### [facility] ([id number]) [address], [facility] [address] [place] [address] Erythrocyte distribution width (RBC) [Ratio] 14.5 % Normal 11.5-15.0 [facility] Comment on above: Performed By: #### C VIRGILIO, [facility], , 2776-04, 1987-08 #### [facility] ([id number]) [address] [place] [address] Hematocrit (Bld) [Volume fraction] 30.5 % Low 35-47 [facility] Comment on above: Performed By: #### C BCA, [facility], , 2776-04, 1987-08 #### [facility] ([id number]) [address] [place] [address] Hemoglobin (Bld) [Mass/Vol] 10.5 g/dL Low 11.7-15.5 [facility] Comment on above: Performed By: #### C BCA, CMP, , 2776-04, 1987-08 #### [facility] ([id number]) [address], [address] [place] [address] Lymphocytes (Bld) [#/Vol] 1.4 10*3/uL Normal 1.0-3.5 [facility] Comment on above: Performed By: #### C VIRGILIO CMP, , 2776-04, 1987-08 #### [facility] ([id number]) [address], [address] [place] [address] Lymphocytes/100 WBC (Bld) 16.2 % Normal [facility] Comment on above: Performed By: #### Shahla POOLE, CMP, , 2776-04, 1987-08 #### [facility] ([id number]) [address], [facility] [address] [place] [address] MCH (RBC) [Entitic mass] 28.5 pg Normal 27-34 [facility] Comment on above: Performed By: #### Shahla POOLE CMP, , 2776-04, 1987-08 #### [facility] ([id number]) [address], [address] [place] [address] MCHC (RBC) [Mass/Vol] 34.4 g/dL Normal 32-36 [facility] Comment on above: Performed By: #### Shahla POOLE, CMP, , 2776-04, 1987-08 #### [facility] ([id number]) [address], [facility] [address] [place] [address] MCV (RBC) [Entitic vol] 83 fL Normal 80-100 [facility] Comment on above: Performed By: #### Shahla BCA, CMP, , 2776-04, 1987-08 #### [facility] ([id number]) [address], [facility] [address] [place] [address] Monocytes (Bld) [#/Vol] 0.5 10*3/uL Normal 0-0.9 [facility] Comment on above: Performed By: #### Shahla POOLE, CMP, , 2776-04, 1987-08 #### [facility] ([id number]) [address], [address] [place] [address] Monocytes/100 WBC (Bld) 5.9 % Normal [facility] Comment on above: Performed By: #### C BCA, CMP, , 2776-04, 1987-08 #### [facility] ([id number]) [address], [address] [place] [address] Neutrophils/100 WBC (Bld) 76.9 % Normal [facility] Comment on above: Performed By: #### C BCA, CMP, , 2776-04, 1987-08 #### [facility] ([id number]) [address] [place] [address] Platelet mean volume (Bld) [Entitic vol] 9.1 fL Normal 7-12 [facility] Comment on above: Performed By: #### Shahla BCA, CMP, , 2776-04, 1987-08 #### [facility] ([id number]) [address], [address] [place] [address] Platelets (Bld) [#/Vol] 248 10*3/uL Normal 150-450 [facility] Comment on above: Performed By: #### Shahla BCA, CMP, , 2776-04, 1987-08 #### [facility] ([id number]) [address], [address] [place] [address] RBC COUNT 3.68 X10E12/L Low 3.80-5.20 [facility] Comment on above: Performed By: #### Shahla BCA, CMP, , 2776-04, 1987-08 #### [facility] ([id number]) [address], [address] [place] [address] RBC morphology finding Nom (Bld) REVIEWED Normal [facility] Comment on above: Performed By: #### C BCA, CMP, , 2776-04, 1987-08 #### [facility] ([id number]) [address], [address] [place] [address] WBC (Bld) [#/Vol] 8.4 10*3/uL Normal 4.0-11.0 [facility] Comment on above: Performed By: #### C BCA, CMP, , 2776-04, 1987-08 #### [facility] ([id number]) [address], [address] [place] [address] COMPREHENSIVE METABOLIC PANE Phu 10-25-2023 Albumin [Mass/Vol] 3.1 g/dL Low 3.2-5.3 [facility] Comment on above: Performed By: #### C BCA, CMP, , 2776-04, 1987-08 #### [facility] ([id number]) [address], [address] [place] [address] ALP [Catalytic activity/Vol] 35 U/L Low 39-130 [facility] Comment on above: Performed By: #### C BCA, CMP, , 2776-04, 1987-08 #### [facility] ([id number]) [address], [address] [place] [address] ALT [Catalytic activity/Vol] 8 U/L Normal 0-31 [facility] Comment on above: Performed By: #### C BCA, CMP, , 2776-04, 1987-08 #### [facility] ([id number]) [address], [address] [place] [address] Anion gap [Moles/Vol] 9 mmol/L Normal 5-15 [facility] Comment on above: Performed By: #### C BCA, CMP, , 2776-04, 1987-08 #### [facility] ([id number]) [address], [address] [place] [address] AST [Catalytic activity/Vol] 10 U/L Normal 0-41 [facility] Comment on above: Performed By: #### C BCA, CMP, , 2776-04, 1987-08 #### [facility] ([id number]) [address], [address] [place] [address] Bilirubin [Mass/Vol] 0.3 mg/dL Normal 0.3-1.2 [facility] Comment on above: Performed By: #### C BCA, CMP, , 2776-04, 1987-08 #### [facility] ([id number]) [address], [address] [place] [address] Calcium [Mass/Vol] 8.6 mg/dL Normal 8.5-10.5 [facility] Comment on above: Performed By: #### C BCA, CMP, , 2776-04, 1987-08 #### [facility] ([id number]) [address], [address] [place] [address] Chloride [Moles/Vol] 106 mmol/L Normal 98-109 [facility] Comment on above: Performed By: #### C BCA, CMP, , 2776-04, 1987-08 #### [facility] ([id number]) [address], [address] [place] [address] CO2 [Moles/Vol] 25 mmol/L Normal 22-32 [facility] Comment on above: Performed By: #### C BCA, CMP, , 2776-04, 1987-08 #### [facility] ([id number]) [address], [address] [place] [address] Creatinine [Mass/Vol] 2.12 mg/dL High 0.40-1.00 [facility] Comment on above: Result Comment: METH OD TRACEABLE TO IDMS STANDARD Performed By: #### C BCA, CMP, , 2776-04, 1987-08 #### [facility] ([id number]) [address] [place] [address] GFR/1.73 sq M.predicted among non-blacks MDRD (S/P/Bld) [Vol rate/Area] 26 mL/min/{1.73_m2} Low >59 [facility] Comment on above: Result Comment: Reported eGFR is based on the CKD-EPI 2020 equation that does not use a race coefficient. Performed By: #### C BCA, CMP, , 2776-04, 1987-08 #### [facility] ([id number]) [address] [place] [address] Glucose [Mass/Vol] 81 mg/dL Normal 65-99 [facility] Comment on above: Performed By: #### C BCA, CMP, , 2776-04, 1987-08 #### [facility] ([id number]) [address] [place] [address] Potassium [Moles/Vol] 4.1 mmol/L Normal 3.5-5.0 [facility] Comment on above: Performed By: #### C BCA, CMP, , 2776-04, 1987-08 #### [facility] ([id number]) [address], [address] [place] [address] Protein [Mass/Vol] 4.9 g/dL Low 6.0-8.0 [facility] Comment on above: Performed By: #### C BCA, CMP, , 2776-04, 1987-08 #### [facility] ([id number]) [address], [address] [place] [address] Sodium [Moles/Vol] 140 mmol/L Normal 134-146 [facility] Comment on above: Performed By: #### C BCA, CMP, , 2776-04, 1987-08 #### [facility] ([id number]) [address], [address] [place] [address] Urea nitrogen [Mass/Vol] 58 mg/dL High 5-23 [facility] Comment on above: Performed By: #### Shahla POOLE CMP, , 2776-04, 1987-08 #### [facility] ([id number]) [address], [address] [place] [address] Calcium.ionized (Bld) [Mass/ Vol]on 10-25-2023 IONIZED CALCIUM 4.8 mg/dL Normal 4.5-5.3 [facility] Comment on above: Performed By: #### Shahla POOLE CMP, , 2776-04, 1987-08 #### [facility] ([id number]) [address], [address] [place] [address] MAGNESIUMon 10-25-2023 Magnesium [Mass/Vol] 2.1 mg/dL Normal 1.8-2.6 [facility] Comment on above: Performed By: #### Shahla POOLE, CMP, , 2776-04, 1987-08 #### [facility] ([id number]) [address], [address] [place] [address] PHOSPHORUSon 10-25-2023 Phosphate [Mass/Vol] 3.5 mg/dL Normal 2.4-4.9 [facility] Comment on above: Performed By: #### Shahla POOLE, CMP, , 2776-04, 1987-08 #### [facility] ([id number]) [address], [address] [place] [address] CBC AND AUTO DIFFon 10-24-19 24 ABSOLUTE BASOPHIL 0.0 X10E9/L Normal 0.0-0.2 [facility] Comment on above: Performed By: #### Shahla POOLE, CMP, , 2776-04, 1987-08 #### [facility] ([id number]) [address] [place] [address] ABSOLUTE NEUTROPHIL 7.2 X10E9/L High 1.5-6.6 [facility] Comment on above: Performed By: #### C VIRGILIO CMP, , 2776-04, 1987-08 #### [facility] ([id number]) [address], [address] [place] [address] Basophils/100 WBC (Bld) 0.1 % Normal [facility] Comment on above: Performed By: #### C BCA, CMP, , 2776-04, 1987-08 #### [facility] ([id number]) [address], [address] [place] [address] Eosinophils (Bld) [#/Vol] 0.0 10*3/uL Normal 0.0-0.4 [facility] Comment on above: Performed By: #### C VIRGILIO, CMP, , 2776-04, 1987-08 #### [facility] ([id number]) [address] [place] [address] Eosinophils/100 WBC (Bld) 0.2 % Normal [facility] Comment on above: Performed By: #### C BCA, CMP, , 2776-04, 1987-08 #### [facility] ([id number]) [address], [address] [place] [address] Erythrocyte distribution width (RBC) [Ratio] 14.7 % Normal 11.5-15.0 [facility] Comment on above: Performed By: #### C BCA, CMP, , 2776-04, 1987-08 #### [facility] ([id number]) [address], [address] [place] [address] Hematocrit (Bld) [Volume fraction] 31.4 % Low 35-47 [facility] Comment on above: Performed By: #### C BCA, CMP, , 2776-04, 1987-08 #### [facility] ([id number]) [address], [address] [place] [address] Hemoglobin (Bld) [Mass/Vol] 10.5 g/dL Low 11.7-15.5 [facility] Comment on above: Performed By: #### Shahla POOLE CMP, , 2776-04, 1987-08 #### [facility] ([id number]) [address], [address] [place] [address] Lymphocytes (Bld) [#/Vol] 3.1 10*3/uL Normal 1.0-3.5 [facility] Comment on above: Performed By: #### Shahla POOLE, CMP, , 2776-04, 1987-08 #### [facility] ([id number]) [address], [facility] [address] [place] [address] Lymphocytes/100 WBC (Bld) 27.5 % Normal [facility] Comment on above: Performed By: #### Shahla POOLE, CMP, , 2776-04, 1987-08 #### [facility] ([id number]) [address], [address] [place] [address] MCH (RBC) [Entitic mass] 28.1 pg Normal 27-34 [facility] Comment on above: Performed By: #### Shahla BCA, CMP, , 2776-04, 1987-08 #### [facility] ([id number]) [address], [address] [place] [address] MCHC (RBC) [Mass/Vol] 33.3 g/dL Normal 32-36 [facility] Comment on above: Performed By: #### Shahla BCA, CMP, , 2776-04, 1987-08 #### [facility] ([id number]) [address], [address] [place] [address] MCV (RBC) [Entitic vol] 84 fL Normal 80-100 [facility] Comment on above: Performed By: #### C BCA, CMP, , 2776-04, 1987-08 #### [facility] ([id number]) [address], [address] [place] [address] Monocytes (Bld) [#/Vol] 0.8 10*3/uL Normal 0-0.9 [facility] Comment on above: Performed By: #### Shahla BCA, CMP, , 2776-04, 1987-08 #### [facility] ([id number]) [address], [address] [place] [address] Monocytes/100 WBC (Bld) 7.6 % Normal [facility] Comment on above: Performed By: #### Shahla BCA, CMP, , 2776-04, 1987-08 #### [facility] ([id number]) [address] [place] [address] Neutrophils/100 WBC (Bld) 64.6 % Normal [facility] Comment on above: Performed By: #### Shahla BCA, CMP, , 2776-04, 1987-08 #### [facility] ([id number]) [address] [place] [address] Platelet mean volume (Bld) [Entitic vol] 9.6 fL Normal 7-12 [facility] Comment on above: Performed By: #### Shahla BCA, CMP, , 2776-04, 1987-08 #### [facility] ([id number]) [address], [address] [place] [address] Platelets (Bld) [#/Vol] 304 10*3/uL Normal 150-450 [facility] Comment on above: Performed By: #### Shahla BCA, CMP, , 2776-04, 1987-08 #### [facility] ([id number]) [address], [address] [place] [address] RBC COUNT 3.73 X10E12/L Low 3.80-5.20 [facility] Comment on above: Performed By: #### C BCA, CMP, , 2776-04, 1987-08 #### [facility] ([id number]) [address] [place] [address] WBC (Bld) [#/Vol] 11.2 10*3/uL High 4.0-11.0 [facility] Comment on above: Performed By: #### C BCA, CMP, , 2776-04, 1987-08 #### [facility] ([id number]) [address] [place] [address] COMPREHENSIVE METABOLIC PANE Phu 10-24-2023 Albumin [Mass/Vol] 3.2 g/dL Normal 3.2-5.3 [facility] Comment on above: Performed By: #### C BCA, CMP, , 2776-04, 1987-08 #### [facility] ([id number]) [address] [place] [address] ALP [Catalytic activity/Vol] 37 U/L Low 39-130 [facility] Comment on above: Performed By: #### C BCA, CMP, , 2776-04, 1987-08 #### [facility] ([id number]) [address] [place] [address] ALT [Catalytic activity/Vol] 8 U/L Normal 0-31 [facility] Comment on above: Performed By: #### C BCA, CMP, , 2776-04, 1987-08 #### [facility] ([id number]) [address] [place] [address] Anion gap [Moles/Vol] 11 mmol/L Normal 5-15 [facility] Comment on above: Performed By: #### C BCA, CMP, , 2776-04, 1987-08 #### [facility] ([id number]) [address] [place] [address] AST [Catalytic activity/Vol] 9 U/L Normal 0-41 [facility] Comment on above: Performed By: #### C BCA, CMP, , 2776-04, 1987-08 #### [facility] ([id number]) [address] [place] [address] Bilirubin [Mass/Vol] 0.3 mg/dL Normal 0.3-1.2 [facility] Comment on above: Performed By: #### C BCA, CMP, , 2776-04, 1987-08 #### [facility] ([id number]) [address] [place] [address] Calcium [Mass/Vol] 8.7 mg/dL Normal 8.5-10.5 [facility] Comment on above: Performed By: #### C BCA, CMP, , 2776-04, 1987-08 #### [facility] ([id number]) [address] [place] [address] Chloride [Moles/Vol] 103 mmol/L Normal 98-109 [facility] Comment on above: Performed By: #### C BCA, CMP, , 2776-04, 1987-08 #### [facility] ([id number]) [address], [address] [place] [address] CO2 [Moles/Vol] 26 mmol/L Normal 22-32 [facility] Comment on above: Performed By: #### C BCA, CMP, , 2776-04, 1987-08 #### [facility] ([id number]) [address], [address] [place] [address] Creatinine [Mass/Vol] 2.33 mg/dL High 0.40-1.00 [facility] Comment on above: Result Comment: METH OD TRACEABLE TO IDMS STANDARD Performed By: #### C EDEL POOLE, , 2776-04, 1987-08 #### [facility] ([id number]) [address], [address] [place] [address] GFR/1.73 sq M.predicted among non-blacks MDRD (S/P/Bld) [Vol rate/Area] 24 mL/min/{1.73_m2} Low >59 [facility] Comment on above: Result Comment: Reported eGFR is based on the CKD-EPI 2020 equation that does not use a race coefficient. Performed By: #### C EDEL POOLE, , 2776-04, 1987-08 #### [facility] ([id number]) [address] [place] [address] Glucose [Mass/Vol] 80 mg/dL Normal 65-99 [facility] Comment on above: Performed By: #### C EDEL POOLE, , 2776-04, 1987-08 #### [facility] ([id number]) [address] [place] [address] Potassium [Moles/Vol] 3.9 mmol/L Normal 3.5-5.0 [facility] Comment on above: Performed By: #### C EDEL POOLE, , 2776-04, 1987-08 #### [facility] ([id number]) [address], [address] [place] [address] Protein [Mass/Vol] 5.1 g/dL Low 6.0-8.0 [facility] Comment on above: Performed By: #### C EDEL POOLE, , 2776-04, 1987-08 #### [facility] ([id number]) [address] [place] [address] Sodium [Moles/Vol] 140 mmol/L Normal 134-146 [facility] Comment on above: Performed By: #### C BCA, CMP, , 2776-04, 1987-08 #### [facility] ([id number]) [address] [place] [address] Urea nitrogen [Mass/Vol] 67 mg/dL High 5-23 [facility] Comment on above: Performed By: #### C BCA, CMP, , 2776-04, 1987-08 #### [facility] ([id number]) [address] [place] [address] Calcium.ionized (Bld) [Mass/ Vol]on 10-24-2023 IONIZED CALCIUM 4.7 mg/dL Normal 4.5-5.3 [facility] Comment on above: Performed By: #### C BCA, CMP, , 2776-04, 1987-08 #### [facility] ([id number]) [address] [place] [address] HBV core Ab IA Qlon 10-24-19 ANTI HBc Negative Normal NEG [facility] Comment on above: Performed By: #### C BCA, CMP, , 2776-04, 1987-08 #### [facility] ([id number]) [address], [address] [place] [address] HBV surface Ag IA Qlon 10-23 HEPATITIS B SURF AG Negative Normal NEG [facility] Comment on above: Performed By: #### C BCA, CMP, , 2776-04, 1987-08 #### [facility] ([id number]) [address] [place] [address] MAGNESIUMon 10-24-2023 Magnesium [Mass/Vol] 2.2 mg/dL Normal 1.8-2.6 [facility] Comment on above: Performed By: #### C BCA, CMP, , 2776-04, 1987-08 #### [facility] ([id number]) [address], [address] [place] [address] PHOSPHORUSon 10-24-2023 Phosphate [Mass/Vol] 3.4 mg/dL Normal 2.4-4.9 [facility] Comment on above: Performed By: #### Shahla POOLE CMP, , 2776-04, 1987-08 #### [facility] ([id number]) [address] [place] [address] CBC AND AUTO DIFFon 10-23-19 24 Band form neutrophils/100 WBC (Bld) 2.0 % Normal [facility] Comment on above: Performed By: #### Shahla POOLE CMP, , 2776-04, 1987-08 #### [facility] ([id number]) [address] [address] Erythrocyte distribution width (RBC) [Ratio] 14.6 % Normal 11.5-15.0 [facility] Comment on above: Performed By: #### Shahla POOLE CMP, , 2776-04, 1987-08 #### [facility] ([id number]) [address] [address] [place] [address] Hematocrit (Bld) [Volume fraction] 31.6 % Low 35-47 [facility] Comment on above: Performed By: #### Shahla POOLE, CMP, , 2776-04, 1987-08 #### [facility] ([id number]) [address] [address] [place] [address] Hemoglobin (Bld) [Mass/Vol] 10.5 g/dL Low 11.7-15.5 [facility] Comment on above: Performed By: #### Shahla POOLE, CMP, , 2776-04, 1987-08 #### [facility] ([id number]) [address] [place] [address] Lymphocytes (Bld) [#/Vol] 2.0 10*3/uL Normal 1.0-3.5 [facility] Comment on above: Performed By: #### Shahla POOLE CMP, , 2776-04, 1987-08 #### [facility] ([id number]) [address], [facility] [address] [place] [address] Lymphocytes/100 WBC (Bld) 21.0 % Normal [facility] Comment on above: Performed By: #### C VIRGILIO, CMP, , 2776-04, 1987-08 #### [facility] ([id number]) [address] [address] MCH (RBC) [Entitic mass] 28.2 pg Normal 27-34 [facility] Comment on above: Performed By: #### Shahla POOLE CMP, , 2776-04, 1987-08 #### [facility] ([id number]) [address], [facility] [address] [place] [address] MCHC (RBC) [Mass/Vol] 33.3 g/dL Normal 32-36 [facility] Comment on above: Performed By: #### Shahla POOLE, CMP, , 2776-04, 1987-08 #### [facility] ([id number]) [address], [address] [address] MCV (RBC) [Entitic vol] 85 fL Normal 80-100 [facility] Comment on above: Performed By: #### Shahla POOLE, CMP, , 2776-04, 1987-08 #### [facility] ([id number]) [address], [facility] [address] [place] [address] Monocytes (Bld) [#/Vol] 1.8 10*3/uL High 0-0.9 [facility] Comment on above: Performed By: #### Shahla BCA, CMP, , 2776-04, 1987-08 #### [facility] ([id number]) [address], [address] [place] [address] Monocytes/100 WBC (Bld) 19.0 % Normal [facility] Comment on above: Performed By: #### Shahla POOLE CMP, , 2776-04, 1987-08 #### [facility] ([id number]) [address], [address] [place] [address] Neutrophils (Bld) [#/Vol] 5.8 10*3/uL Normal 1.5-6.6 [facility] Comment on above: Performed By: #### Shahla POOLE CMP, , 2776-04, 1987-08 #### [facility] ([id number]) [address], [address] [place] [address] Platelet mean volume (Bld) [Entitic vol] 9.3 fL Normal 7-12 [facility] Comment on above: Performed By: #### Shahla POOLE CMP, , 2776-04, 1987-08 #### [facility] ([id number]) [address], [address] [place] [address] Platelets (Bld) [#/Vol] 297 10*3/uL Normal 150-450 [facility] Comment on above: Performed By: #### Shahla POOLE CMP, , 2776-04, 1987-08 #### [facility] ([id number]) [address], [address] [place] [address] RBC COUNT 3.73 X10E12/L Low 3.80-5.20 [facility] Comment on above: Performed By: #### Shahla POOLE, CMP, , 2776-04, 1987-08 #### [facility] ([id number]) [address], [address] [place] [address] RBC morphology finding Nom (Bld) NORMAL Normal [facility] Comment on above: Performed By: #### C BCA, CMP, , 2776-04, 1987-08 #### [facility] ([id number]) [address], [address] [place] [address] SEG NEUTROPHIL 58.0 % Normal [facility] Comment on above: Performed By: #### C BCA, CMP, , 2776-04, 1987-08 #### [facility] ([id number]) [address], [address] [place] [address] WBC (Bld) [#/Vol] 9.6 10*3/uL Normal 4.0-11.0 [facility] Comment on above: Performed By: #### C BCA, CMP, , 2776-04, 1987-08 #### [facility] ([id number]) [address], [address] [place] [address] [address] [facility] 10-23-2023 Albumin [Mass/Vol] 3.2 g/dL Normal 3.2-5.3 [facility] Comment on above: Performed By: #### C BCA, CMP, , 2776-04, 1987-08 #### [facility] ([id number]) [address] [place] [address] ALP [Catalytic activity/Vol] 38 U/L Low 39-130 [facility] Comment on above: Performed By: #### C BCA, CMP, , 2776-04, 1987-08 #### [facility] ([id number]) [address], [address] [place] [address] ALT [Catalytic activity/Vol] 10 U/L Normal 0-31 [facility] Comment on above: Performed By: #### C BCA, CMP, , 2776-04, 1987-08 #### [facility] ([id number]) [address], [address] [place] [address] Anion gap [Moles/Vol] 9 mmol/L Normal 5-15 [facility] Comment on above: Performed By: #### C BCA, CMP, , 2776-04, 1987-08 #### [facility] ([id number]) [address], [address] [place] [address] AST [Catalytic activity/Vol] 10 U/L Normal 0-41 [facility] Comment on above: Performed By: #### C BCA, CMP, , 2776-04, 1987-08 #### [facility] ([id number]) [address] [place] [address] Bilirubin [Mass/Vol] 0.3 mg/dL Normal 0.3-1.2 [facility] Comment on above: Performed By: #### C BCA, CMP, , 2776-04, 1987-08 #### [facility] ([id number]) [address] [place] [address] Calcium [Mass/Vol] 8.7 mg/dL Normal 8.5-10.5 [facility] Comment on above: Performed By: #### C BCA, CMP, , 2776-04, 1987-08 #### [facility] ([id number]) [address], [address] [place] [address] Chloride [Moles/Vol] 102 mmol/L Normal 98-109 [facility] Comment on above: Performed By: #### C BCA, CMP, , 2776-04, 1987-08 #### [facility] ([id number]) [address] [place] [address] CO2 [Moles/Vol] 29 mmol/L Normal 22-32 [facility] Comment on above: Performed By: #### C BCA, CMP, , 2776-04, 1987-08 #### [facility] ([id number]) [address], [address] [place] [address] Creatinine [Mass/Vol] 2.68 mg/dL High 0.40-1.00 [facility] Comment on above: Result Comment: METH OD TRACEABLE TO IDMS STANDARD Performed By: #### C EDEL POOLE, , 2776-04, 1987-08 #### [facility] ([id number]) [address], [address] [place] [address] GFR/1.73 sq M.predicted among non-blacks MDRD (S/P/Bld) [Vol rate/Area] 20 mL/min/{1.73_m2} Low >59 [facility] Comment on above: Result Comment: Reported eGFR is based on the CKD-EPI 2020 equation that does not use a race coefficient. Performed By: #### C EDEL POOLE, , 2776-04, 1987-08 #### [facility] ([id number]) [address], [address] [place] [address] Glucose [Mass/Vol] 86 mg/dL Normal 65-99 [facility] Comment on above: Performed By: #### C EDEL POOLE, , 2776-04, 1987-08 #### [facility] ([id number]) [address] [place] [address] Potassium [Moles/Vol] 3.7 mmol/L Normal 3.5-5.0 [facility] Comment on above: Performed By: #### C EDEL POOLE, , 2776-04, 1987-08 #### [facility] ([id number]) [address], [address] [place] [address] Protein [Mass/Vol] 5.2 g/dL Low 6.0-8.0 [facility] Comment on above: Performed By: #### C VIRGILIO CMP, , 2776-04, 1987-08 #### [facility] ([id number]) [address] [place] [address] Sodium [Moles/Vol] 140 mmol/L Normal 134-146 [facility] Comment on above: Performed By: #### C BCA, CMP, , 2776-04, 1987-08 #### [facility] ([id number]) [address], [address] [place] [address] Urea nitrogen [Mass/Vol] 72 mg/dL High 5-23 [facility] Comment on above: Performed By: #### C VIRGILIO, CMP, , 2776-04, 1987-08 #### [facility] ([id number]) [address] [place] [address] Calcium.ionized (Bld) [Mass/ Vol]on 10-23-2023 IONIZED CALCIUM 4.8 mg/dL Normal 4.5-5.3 [facility] Comment on above: Performed By: #### C BCA, CMP, , 2776-04, 1987-08 #### [facility] ([id number]) [address] [place] [address] MAGNESIUMon 10-23-2023 Magnesium [Mass/Vol] 2.4 mg/dL Normal 1.8-2.6 [facility] Comment on above: Performed By: #### Shahla BCA, CMP, , 2776-04, 1987-08 #### [facility] ([id number]) [address], [address] [place] [address] PHOSPHORUSon 10-23-2023 Phosphate [Mass/Vol] 4.0 mg/dL Normal 2.4-4.9 [facility] Comment on above: Performed By: #### Shahla BCA, CMP, , 2776-04, 1987-08 #### [facility] ([id number]) [address], [address] [place] [address] CBC AND AUTO DIFFon 10-22-19 Erythrocyte distribution width (RBC) [Ratio] 15.0 % Normal 11.5-15.0 [facility] Comment on above: Performed By: #### Shahla POOLE CMP, , 2776-04, 1987-08 #### [facility] ([id number]) [address] [address] Hematocrit (Bld) [Volume fraction] 32.1 % Low 35-47 [facility] Comment on above: Performed By: #### Shahla POOLE CMP, , 2776-04, 1987-08 #### [facility] ([id number]) [address] [address] Hemoglobin (Bld) [Mass/Vol] 11.0 g/dL Low 11.7-15.5 [facility] Comment on above: Performed By: #### Shahla POOLE CMP, , 2776-04, 1987-08 #### [facility] ([id number]) [address] [address] Lymphocytes (Bld) [#/Vol] 1.2 10*3/uL Normal 1.0-3.5 [facility] Comment on above: Performed By: #### Shahla POOLE CMP, , 2776-04, 1987-08 #### [facility] ([id number]) [address] [address] Lymphocytes/100 WBC (Bld) 14.0 % Normal [facility] Comment on above: Performed By: #### Shahla POOLE CMP, , 2776-04, 1987-08 #### [facility] ([id number]) [address] [address] [place] [address] MCH (RBC) [Entitic mass] 28.8 pg Normal 27-34 [facility] Comment on above: Performed By: #### C VIRGILIO, CMP, , 2776-04, 1987-08 #### [facility] ([id number]) [address], [address] [place] [address] MCHC (RBC) [Mass/Vol] 34.3 g/dL Normal 32-36 [facility] Comment on above: Performed By: #### Shahla BCA, CMP, , 2776-04, 1987-08 #### [facility] ([id number]) [address], [address] [place] [address] MCV (RBC) [Entitic vol] 84 fL Normal 80-100 [facility] Comment on above: Performed By: #### Shahla BCA, CMP, , 2776-04, 1987-08 #### [facility] ([id number]) [address] [place] [address] Metamyelocytes/100 WBC (Bld) 1.0 % Normal [facility] Comment on above: Performed By: #### C BCA, CMP, , 2776-04, 1987-08 #### [facility] ([id number]) [address] [place] [address] Monocytes (Bld) [#/Vol] 0.6 10*3/uL Normal 0-0.9 [facility] Comment on above: Performed By: #### Shahla BCA, CMP, , 2776-04, 1987-08 #### [facility] ([id number]) [address], [address] [place] [address] Monocytes/100 WBC (Bld) 7.0 % Normal [facility] Comment on above: Performed By: #### C BCA, CMP, , 2776-04, 1987-08 #### [facility] ([id number]) [address], [address] [place] [address] MYELOCYTE 3.0 % Normal [facility] Comment on above: Performed By: #### Shahla BCA, CMP, , 2776-04, 1987-08 #### [facility] ([id number]) [address] [place] [address] Neutrophils (Bld) [#/Vol] 6.7 10*3/uL High 1.5-6.6 [facility] Comment on above: Performed By: #### Shahla BCA, CMP, , 2776-04, 1987-08 #### [facility] ([id number]) [address], [facility] [address] [place] [address] Platelet mean volume (Bld) [Entitic vol] 9.4 fL Normal 7-12 [facility] Comment on above: Performed By: #### Shahla BCA, CMP, , 2776-04, 1987-08 #### [facility] ([id number]) [address], [address] [place] [address] Platelets (Bld) [#/Vol] 394 10*3/uL Normal 150-450 [facility] Comment on above: Performed By: #### Shahla BCA, CMP, , 2776-04, 1987-08 #### [facility] ([id number]) [address], [facility] [address] [place] [address] RBC COUNT 3.83 X10E12/L Normal 3.80-5.20 [facility] Comment on above: Performed By: #### Shahla BCA, CMP, , 2776-04, 1987-08 #### [facility] ([id number]) [address] [place] [address] RBC morphology finding Nom (Bld) NORMAL Normal [facility] Comment on above: Performed By: #### Shahla BCA, CMP, , 2776-04, 1987-08 #### [facility] ([id number]) [address], [address] [place] [address] SEG NEUTROPHIL 75.0 % Normal [facility] Comment on above: Performed By: #### C BCA, CMP, , 2776-04, 1987-08 #### [facility] ([id number]) [address], [address] [place] [address] WBC (Bld) [#/Vol] 8.9 10*3/uL Normal 4.0-11.0 [facility] Comment on above: Performed By: #### C BCA, CMP, , 2776-04, 1987-08 #### [facility] ([id number]) [address] [place] [address] COMPREHENSIVE METABOLIC PANE Phu 10-22-2023 Albumin [Mass/Vol] 3.4 g/dL Normal 3.2-5.3 [facility] Comment on above: Performed By: #### C BCA, CMP, , 2776-04, 1987-08 #### [facility] ([id number]) [address] [place] [address] ALP [Catalytic activity/Vol] 43 U/L Normal 39-130 [facility] Comment on above: Performed By: #### C BCA, CMP, , 2776-04, 1987-08 #### [facility] ([id number]) [address], [address] [place] [address] ALT [Catalytic activity/Vol] 9 U/L Normal 0-31 [facility] Comment on above: Performed By: #### C BCA, CMP, , 2776-04, 1987-08 #### [facility] ([id number]) [address] [place] [address] Anion gap [Moles/Vol] 14 mmol/L Normal 5-15 [facility] Comment on above: Performed By: #### C BCA, CMP, , 2776-04, 1987-08 #### [facility] ([id number]) [address], [address] [place] [address] AST [Catalytic activity/Vol] 12 U/L Normal 0-41 [facility] Comment on above: Performed By: #### C BCA, CMP, , 2776-04, 1987-08 #### [facility] ([id number]) [address], [address] [place] [address] Bilirubin [Mass/Vol] 0.3 mg/dL Normal 0.3-1.2 [facility] Comment on above: Performed By: #### C BCA, CMP, , 2776-04, 1987-08 #### [facility] ([id number]) [address], [address] [place] [address] Calcium [Mass/Vol] 8.9 mg/dL Normal 8.5-10.5 [facility] Comment on above: Performed By: #### C BCA, CMP, , 2776-04, 1987-08 #### [facility] ([id number]) [address] [place] [address] Chloride [Moles/Vol] 99 mmol/L Normal 98-109 [facility] Comment on above: Performed By: #### C BCA, CMP, , 2776-04, 1987-08 #### [facility] ([id number]) [address], [address] [place] [address] CO2 [Moles/Vol] 25 mmol/L Normal 22-32 [facility] Comment on above: Performed By: #### C BCA, CMP, , 2776-04, 1987-08 #### [facility] ([id number]) [address], [address] [place] [address] Creatinine [Mass/Vol] 3.16 mg/dL High 0.40-1.00 [facility] Comment on above: Result Comment: METH OD TRACEABLE TO IDMS STANDARD Performed By: #### C EDEL POOLE, , 2776-04, 1987-08 #### [facility] ([id number]) [address] [place] [address] GFR/1.73 sq M.predicted among non-blacks MDRD (S/P/Bld) [Vol rate/Area] 16 mL/min/{1.73_m2} Low >59 [facility] Comment on above: Result Comment: Reported eGFR is based on the CKD-EPI 2020 equation that does not use a race coefficient. Performed By: #### C EDEL POOLE, , 2776-04, 1987-08 #### [facility] ([id number]) [address] [place] [address] Glucose [Mass/Vol] 109 mg/dL High 65-99 [facility] Comment on above: Performed By: #### C EDEL POOLE, , 2776-04, 1987-08 #### [facility] ([id number]) [address] [address] [place] [address] Potassium [Moles/Vol] 4.0 mmol/L Normal 3.5-5.0 [facility] Comment on above: Performed By: #### C EDEL POOLE, , 2776-04, 1987-08 #### [facility] ([id number]) [address], [address] [place] [address] Protein [Mass/Vol] 5.7 g/dL Low 6.0-8.0 [facility] Comment on above: Performed By: #### C EDEL POOLE, , 2776-04, 1987-08 #### [facility] ([id number]) [address] [place] [address] Sodium [Moles/Vol] 138 mmol/L Normal 134-146 [facility] Comment on above: Performed By: #### C VIRGILIO, CMP, , 2776-04, 1987-08 #### [facility] ([id number]) [address] [place] [address] Urea nitrogen [Mass/Vol] 79 mg/dL High 5-23 [facility] Comment on above: Performed By: #### C VIRGILIO, CMP, , 2776-04, 1987-08 #### [facility] ([id number]) [address] [place] [address] Calcium.ionized (Bld) [Mass/ Vol]on 10-22-2023 IONIZED CALCIUM 4.5 mg/dL Normal 4.5-5.3 [facility] Comment on above: Performed By: #### C VIRGILIO, CMP, , 2776-04, 1987-08 #### [facility] ([id number]) [address] [place] [address] MAGNESIUMon 10-22-2023 Magnesium [Mass/Vol] 2.5 mg/dL Normal 1.8-2.6 [facility] Comment on above: Performed By: #### C VIRGILIO, CMP, , 2776-04, 1987-08 #### [facility] ([id number]) [address] [place] [address] PHOSPHORUSon 10-22-2023 Phosphate [Mass/Vol] 4.7 mg/dL Normal 2.4-4.9 [facility] Comment on above: Performed By: #### C VIRGILIO, CMP, , 2776-04, 1987-08 #### [facility] ([id number]) [address] [place] [address] Basement membrane IgG Qn (S) on 10-21-2023 Glomerular Base Memb IgG <0.2 Normal <1.0 (Negative) [facility] Comment on above: Result Comment: NOTE Test Performed by: [facility] [address] [place] [address] Printing Press Operator Apprentice: Ledy Son Ph.D.; CLIA# [id number] Performed By: #### C BCA, CMP, , 2776-04, 1987-08 #### [facility] ([id number]) [address] [place] [address] CBC AND AUTO DIFFon 10-21-19 24 ABSOLUTE BASOPHIL 0.0 X10E9/L Normal 0.0-0.2 [facility] Comment on above: Performed By: #### C BCA, CMP, , 2776-04, 1987-08 #### [facility] ([id number]) [address] [place] [address] ABSOLUTE NEUTROPHIL 8.8 X10E9/L High 1.5-6.6 [facility] Comment on above: Performed By: #### C BCA, CMP, , 2776-04, 1987-08 #### [facility] ([id number]) [address] [place] [address] Basophils/100 WBC (Bld) 0.1 % Normal [facility] Comment on above: Performed By: #### C BCA, CMP, , 2776-04, 1987-08 #### [facility] ([id number]) [address] [place] [address] Eosinophils (Bld) [#/Vol] 0.0 10*3/uL Normal 0.0-0.4 [facility] Comment on above: Performed By: #### C BCA, CMP, , 2776-04, 1987-08 #### [facility] ([id number]) [address] [place] [address] Eosinophils/100 WBC (Bld) 0.0 % Normal [facility] Comment on above: Performed By: #### C BCA, CMP, , 2776-04, 1987-08 #### [facility] ([id number]) [address] [place] [address] Erythrocyte distribution width (RBC) [Ratio] 15.1 % High 11.5-15.0 [facility] Comment on above: Performed By: #### C VIRGILIO, CMP, , 2776-04, 1987-08 #### [facility] ([id number]) [address] [place] [address] Hematocrit (Bld) [Volume fraction] 30.9 % Low 35-47 [facility] Comment on above: Performed By: #### C VIRGILIO, CMP, , 2776-04, 1987-08 #### [facility] ([id number]) [address] [place] [address] Hemoglobin (Bld) [Mass/Vol] 10.7 g/dL Low 11.7-15.5 [facility] Comment on above: Performed By: #### Shahla POOLE, CMP, , 2776-04, 1987-08 #### [facility] ([id number]) [address] [place] [address] Lymphocytes (Bld) [#/Vol] 1.1 10*3/uL Normal 1.0-3.5 [facility] Comment on above: Performed By: #### C BCA, CMP, , 2776-04, 1987-08 #### [facility] ([id number]) [address] [place] [address] Lymphocytes/100 WBC (Bld) 10.9 % Normal [facility] Comment on above: Performed By: #### Shahla BCA, CMP, , 2776-04, 1987-08 #### [facility] ([id number]) [address] [place] [address] MCH (RBC) [Entitic mass] 29.1 pg Normal 27-34 [facility] Comment on above: Performed By: #### C BCA, CMP, , 2776-04, 1987-08 #### [facility] ([id number]) [address] [place] [address] MCHC (RBC) [Mass/Vol] 34.7 g/dL Normal 32-36 [facility] Comment on above: Performed By: #### C BCA, CMP, , 2776-04, 1987-08 #### [facility] ([id number]) [address] [place] [address] MCV (RBC) [Entitic vol] 84 fL Normal 80-100 [facility] Comment on above: Performed By: #### Shahla BCA, CMP, , 2776-04, 1987-08 #### [facility] ([id number]) [address] [place] [address] Monocytes (Bld) [#/Vol] 0.2 10*3/uL Normal 0-0.9 [facility] Comment on above: Performed By: #### Shahla BCA, CMP, , 2776-04, 1987-08 #### [facility] ([id number]) [address] [place] [address] Monocytes/100 WBC (Bld) 2.2 % Normal [facility] Comment on above: Performed By: #### Shahla BCA, CMP, , 2776-04, 1987-08 #### [facility] ([id number]) [address] [place] [address] Neutrophils/100 WBC (Bld) 86.8 % Normal [facility] Comment on above: Performed By: #### Shahla BCA, CMP, , 2776-04, 1987-08 #### [facility] ([id number]) [address] [place] [address] Platelet mean volume (Bld) [Entitic vol] 9.5 fL Normal 7-12 [facility] Comment on above: Performed By: #### C BCA, CMP, , 2776-04, 1987-08 #### [facility] ([id number]) [address] [place] [address] Platelets (Bld) [#/Vol] 297 10*3/uL Normal 150-450 [facility] Comment on above: Performed By: #### C BCA, CMP, , 2776-04, 1987-08 #### [facility] ([id number]) [address] [place] [address] RBC COUNT 3.69 X10E12/L Low 3.80-5.20 [facility] Comment on above: Performed By: #### C BCA, CMP, , 2776-04, 1987-08 #### [facility] ([id number]) [address] [place] [address] WBC (Bld) [#/Vol] 10.2 10*3/uL Normal 4.0-11.0 [facility] Comment on above: Performed By: #### C BCA, CMP, , 2776-04, 1987-08 #### [facility] ([id number]) [address] [place] [address] COMPREHENSIVE METABOLIC PANE Phu 10-21-2023 Albumin [Mass/Vol] 3.6 g/dL Normal 3.2-5.3 [facility] Comment on above: Performed By: #### C BCA, CMP, , 2776-04, 1987-08 #### [facility] ([id number]) [address] [place] [address] ALP [Catalytic activity/Vol] 46 U/L Normal 39-130 [facility] Comment on above: Performed By: #### C BCA, CMP, , 2776-04, 1987-08 #### [facility] ([id number]) [address] [place] [address] ALT [Catalytic activity/Vol] 15 U/L Normal 0-31 [facility] Comment on above: Performed By: #### C BCA, CMP, , 2776-04, 1987-08 #### [facility] ([id number]) [address] [place] [address] Anion gap [Moles/Vol] 12 mmol/L Normal 5-15 [facility] Comment on above: Performed By: #### C BCA, CMP, , 2776-04, 1987-08 #### [facility] ([id number]) [address] [place] [address] AST [Catalytic activity/Vol] 18 U/L Normal 0-41 [facility] Comment on above: Performed By: #### C BCA, CMP, , 2776-04, 1987-08 #### [facility] ([id number]) [address] [place] [address] Bilirubin [Mass/Vol] 0.3 mg/dL Normal 0.3-1.2 [facility] Comment on above: Performed By: #### C BCA, CMP, , 2776-04, 1987-08 #### [facility] ([id number]) [address] [place] [address] Calcium [Mass/Vol] 8.8 mg/dL Normal 8.5-10.5 [facility] Comment on above: Performed By: #### C BCA, CMP, , 2776-04, 1987-08 #### [facility] ([id number]) [address] [place] [address] Chloride [Moles/Vol] 96 mmol/L Low 98-109 [facility] Comment on above: Performed By: #### C BCA, CMP, , 2776-04, 1987-08 #### [facility] ([id number]) [address] [place] [address] CO2 [Moles/Vol] 28 mmol/L Normal 22-32 [facility] Comment on above: Performed By: #### C BCA, CMP, , 2776-04, 1987-08 #### [facility] ([id number]) [address] [place] [address] Creatinine [Mass/Vol] 3.71 mg/dL High 0.40-1.00 [facility] Comment on above: Result Comment: METH OD TRACEABLE TO IDMS STANDARD Performed By: #### C BCA, CMP, , 2776-04, 1987-08 #### [facility] ([id number]) [address] [place] [address] GFR/1.73 sq M.predicted among non-blacks MDRD (S/P/Bld) [Vol rate/Area] 13 mL/min/{1.73_m2} Low >59 [facility] Comment on above: Result Comment: Reported eGFR is based on the CKD-EPI 2020 equation that does not use a race coefficient. Performed By: #### C BCA, CMP, , 2776-04, 1987-08 #### [facility] ([id number]) [address] [place] [address] Glucose [Mass/Vol] 131 mg/dL High 65-99 [facility] Comment on above: Performed By: #### C BCA, CMP, , 2776-04, 1987-08 #### [facility] ([id number]) [address], [address] [place] [address] Potassium [Moles/Vol] 4.6 mmol/L Normal 3.5-5.0 [facility] Comment on above: Performed By: #### C EDEL POOLE, , 2776-04, 1987-08 #### [facility] ([id number]) [address], [address] [place] [address] Protein [Mass/Vol] 5.9 g/dL Low 6.0-8.0 [facility] Comment on above: Performed By: #### C EDEL POOLE, , 2776-04, 1987-08 #### [facility] ([id number]) [address], [address] [place] [address] Sodium [Moles/Vol] 136 mmol/L Normal 134-146 [facility] Comment on above: Performed By: #### Shahla POOLE CMP, , 2776-04, 1987-08 #### [facility] ([id number]) [address], [address] [place] [address] Urea nitrogen [Mass/Vol] 80 mg/dL High 5-23 [facility] Comment on above: Performed By: #### Shahla POOLE CMP, , 2776-04, 1987-08 #### [facility] ([id number]) [address], [address] [place] [address] Calcium.ionized (Bld) [Mass/ Vol]on 10-21-2023 IONIZED CALCIUM 4.5 mg/dL Normal 4.5-5.3 [facility] Comment on above: Performed By: #### Shahla POOLE CMP, , 2776-04, 1987-08 #### [facility] ([id number]) [address], [address] [place] [address] MAGNESIUMon 10-21-2023 Magnesium [Mass/Vol] 2.4 mg/dL Normal 1.8-2.6 [facility] Comment on above: Performed By: #### C BCA, CMP, , 2776-04, 1987-08 #### [facility] ([id number]) [address], [address] [place] [address] PHOSPHORUSon 10-21-2023 Phosphate [Mass/Vol] 5.5 mg/dL High 2.4-4.9 [facility] Comment on above: Performed By: #### C BCA, CMP, , 2776-04, 1987-08 #### [facility] ([id number]) [address], [address] [place] [address] CBC AND AUTO DIFFon 10-20-19 ABSOLUTE BASOPHIL 0.0 X10E9/L Normal 0.0-0.2 [facility] Comment on above: Performed By: #### C BCA, CMP, , 2776-04, 1987-08 #### [facility] ([id number]) [address], [address] [place] [address] ABSOLUTE NEUTROPHIL 14.6 X10E9/L High 1.5-6.6 [facility] Comment on above: Performed By: #### C BCA, CMP, , 2776-04, 1987-08 #### [facility] ([id number]) [address], [address] [place] [address] Basophils/100 WBC (Bld) 0.1 % Normal [facility] Comment on above: Performed By: #### C BCA, CMP, , 2776-04, 1987-08 #### [facility] ([id number]) [address], [address] [place] [address] Eosinophils (Bld) [#/Vol] 0.0 10*3/uL Normal 0.0-0.4 [facility] Comment on above: Performed By: #### C BCA, CMP, , 2776-04, 1987-08 #### [facility] ([id number]) [address], [address] [place] [address] Eosinophils/100 WBC (Bld) 0.0 % Normal [facility] Comment on above: Performed By: #### C VIRGILIO [facility], , 2776-04, 1987-08 #### [facility] ([id number]) [address], [address] [place] [address] Erythrocyte distribution width (RBC) [Ratio] 15.3 % High 11.5-15.0 [facility] Comment on above: Performed By: #### Shahla POOLE [facility], , 2776-04, 1987-08 #### [facility] ([id number]) [address] [place] [address] Hematocrit (Bld) [Volume fraction] 32.0 % Low 35-47 [facility] Comment on above: Performed By: #### Shahla POOLE [facility], , 2776-04, 1987-08 #### [facility] ([id number]) [address] [place] [address] Hemoglobin (Bld) [Mass/Vol] 10.5 g/dL Low 11.7-15.5 [facility] Comment on above: Performed By: #### Shahla POOLE [facility], , 2776-04, 1987-08 #### [facility] ([id number]) [address] [place] [address] Lymphocytes (Bld) [#/Vol] 1.7 10*3/uL Normal 1.0-3.5 [facility] Comment on above: Performed By: #### Shahla POOLE, CMP, , 2776-04, 1987-08 #### [facility] ([id number]) [address], [address] [place] [address] Lymphocytes/100 WBC (Bld) 10.3 % Normal [facility] Comment on above: Performed By: #### C BCA, CMP, , 2776-04, 1987-08 #### [facility] ([id number]) [address], [address] [place] [address] MCH (RBC) [Entitic mass] 27.7 pg Normal 27-34 [facility] Comment on above: Performed By: #### Shahla BCA, CMP, , 2776-04, 1987-08 #### [facility] ([id number]) [address] [place] [address] MCHC (RBC) [Mass/Vol] 32.9 g/dL Normal 32-36 [facility] Comment on above: Performed By: #### Shahla BCA, CMP, , 2776-04, 1987-08 #### [facility] ([id number]) [address], [address] [place] [address] MCV (RBC) [Entitic vol] 84 fL Normal 80-100 [facility] Comment on above: Performed By: #### Shahla POOLE, CMP, , 2776-04, 1987-08 #### [facility] ([id number]) [address], [address] [place] [address] Monocytes (Bld) [#/Vol] 0.4 10*3/uL Normal 0-0.9 [facility] Comment on above: Performed By: #### Shahla BCA, CMP, , 2776-04, 1987-08 #### [facility] ([id number]) [address], [address] [place] [address] Monocytes/100 WBC (Bld) 2.2 % Normal [facility] Comment on above: Performed By: #### Shahla BCA, CMP, , 2776-04, 1987-08 #### [facility] ([id number]) [address], [address] [place] [address] Neutrophils/100 WBC (Bld) 87.4 % Normal [facility] Comment on above: Performed By: #### C BCA, CMP, , 2776-04, 1987-08 #### [facility] ([id number]) [address], [address] [place] [address] Platelet mean volume (Bld) [Entitic vol] 9.3 fL Normal 7-12 [facility] Comment on above: Performed By: #### C BCA, CMP, , 2776-04, 1987-08 #### [facility] ([id number]) [address], [facility] [address] [place] [address] Platelets (Bld) [#/Vol] 350 10*3/uL Normal 150-450 [facility] Comment on above: Performed By: #### Shahla BCA, CMP, , 2776-04, 1987-08 #### [facility] ([id number]) [address], [address] [place] [address] RBC COUNT 3.80 X10E12/L Normal 3.80-5.20 [facility] Comment on above: Performed By: #### Shahla BCA, CMP, , 2776-04, 1987-08 #### [facility] ([id number]) [address], [address] [place] [address] WBC (Bld) [#/Vol] 16.7 10*3/uL High 4.0-11.0 [facility] Comment on above: Performed By: #### C BCA, CMP, , 2776-04, 1987-08 #### [facility] ([id number]) [address], [address] [place] [address] COMPREHENSIVE METABOLIC PANE Phu 10-20-2023 Albumin [Mass/Vol] 3.6 g/dL Normal 3.2-5.3 [facility] Comment on above: Performed By: #### C BCA, CMP, , 2776-04, 1987-08 #### [facility] ([id number]) [address], [address] [place] [address] ALP [Catalytic activity/Vol] 53 U/L Normal 39-130 [facility] Comment on above: Performed By: #### C BCA, CMP, , 2776-04, 1987-08 #### [facility] ([id number]) [address], [address] [place] [address] ALT [Catalytic activity/Vol] 14 U/L Normal 0-31 [facility] Comment on above: Performed By: #### C BCA, CMP, , 2776-04, 1987-08 #### [facility] ([id number]) [address], [address] [place] [address] Anion gap [Moles/Vol] 13 mmol/L Normal 5-15 [facility] Comment on above: Performed By: #### C BCA, CMP, , 2776-04, 1987-08 #### [facility] ([id number]) [address], [address] [place] [address] AST [Catalytic activity/Vol] 27 U/L Normal 0-41 [facility] Comment on above: Performed By: #### C BCA, CMP, , 2776-04, 1987-08 #### [facility] ([id number]) [address], [address] [place] [address] Bilirubin [Mass/Vol] 0.3 mg/dL Normal 0.3-1.2 [facility] Comment on above: Performed By: #### C BCA, CMP, , 2776-04, 1987-08 #### [facility] ([id number]) [address], [address] [place] [address] Calcium [Mass/Vol] 9.1 mg/dL Normal 8.5-10.5 [facility] Comment on above: Performed By: #### C EDEL POOLE, , 2776-04, 1987-08 #### [facility] ([id number]) [address] [place] [address] Chloride [Moles/Vol] 94 mmol/L Low 98-109 [facility] Comment on above: Performed By: #### C EDEL OPOLE, , 2776-04, 1987-08 #### [facility] ([id number]) [address], [address] [place] [address] CO2 [Moles/Vol] 28 mmol/L Normal 22-32 [facility] Comment on above: Performed By: #### C EDEL POOLE, , 2776-04, 1987-08 #### [facility] ([id number]) [address], [address] [place] [address] Creatinine [Mass/Vol] 3.58 mg/dL High 0.40-1.00 [facility] Comment on above: Result Comment: METH OD TRACEABLE TO IDMS STANDARD Performed By: #### C EDEL POOLE, , 2776-04, 1987-08 #### [facility] ([id number]) [address], [address] [place] [address] GFR/1.73 sq M.predicted among non-blacks MDRD (S/P/Bld) [Vol rate/Area] 14 mL/min/{1.73_m2} Low >59 [facility] Comment on above: Result Comment: Reported eGFR is based on the CKD-EPI 2020 equation that does not use a race coefficient. Performed By: #### C EDEL POOLE, , 2776-04, 1987-08 #### [facility] ([id number]) [address], [address] [place] [address] Glucose [Mass/Vol] 133 mg/dL High 65-99 [facility] Comment on above: Performed By: #### C BCA, CMP, , 2776-04, 1987-08 #### [facility] ([id number]) [address], [address] [place] [address] Potassium [Moles/Vol] 4.8 mmol/L Normal 3.5-5.0 [facility] Comment on above: Performed By: #### C BCA, CMP, , 2776-04, 1987-08 #### [facility] ([id number]) [address], [address] [place] [address] Protein [Mass/Vol] 6.1 g/dL Normal 6.0-8.0 [facility] Comment on above: Performed By: #### C BCA, CMP, , 2776-04, 1987-08 #### [facility] ([id number]) [address], [address] [place] [address] Sodium [Moles/Vol] 135 mmol/L Normal 134-146 [facility] Comment on above: Performed By: #### C BCA, CMP, , 2776-04, 1987-08 #### [facility] ([id number]) [address], [address] [place] [address] Urea nitrogen [Mass/Vol] 70 mg/dL High 5-23 [facility] Comment on above: Performed By: #### C BCA, CMP, , 2776-04, 1987-08 #### [facility] ([id number]) [address], [address] [place] [address] Calcium.ionized (Bld) [Mass/ Vol]on 10-20-2023 IONIZED CALCIUM 4.6 mg/dL Normal 4.5-5.3 [facility] Comment on above: Performed By: #### C BCA, CMP, , 2776-04, 1987-08 #### [facility] ([id number]) [address] [facility] [place] [address] IR BIOPSY RENAL PERC RTon IR BIOPSY [...] Mann MD on 10/20/2023 3:13 PM Normal [facility] MAGNESIUMon 10-20-2023 Magnesium [Mass/Vol] 2.3 mg/dL Normal 1.8-2.6 [facility] Comment on above: Performed By: #### C BCA, CMP, 68114-1, 2776-04, 1987-08 #### [facility] ([id number]) [address] [place] [address], [facility] [address] [place] [address] PHOSPHORUSon 10-20-2023 Phosphate [Mass/Vol] 6.3 mg/dL High 2.4-4.9 [facility] Comment on above: Performed By: #### C BCA, CMP, 23027-5, 2776-04, 1987-08 #### [facility] ([id number]) [address] [place] [address], [address] [address] Surgical Pathologyon 024 Surgical Pathology Normal [facility] Comment on above: Result Comment: [facility] [address] [place] [address] Surgical Pathology Consultation ADDENDUM [place] Patient Name:DANIELLE MONTANA:1965 (Age: 58)Gender:FTaken:4Reported:10/24/2023hysician(s):Wanda Mendez ([phone])Copy To:MD Natasha ROSALES M.D. Rec. #:[id number]: #[id number] Final Pathologic Diagnosis Right kidney, needle biopsy: Specimen sent to [facility]. Report Electronically Signed [facility]/10/24/2023Gene MD Derrick Addendum ([facility]) Date Reported: 10/24/2023 Results of routine histology and immunofluorescence dated 10/24/2023 are received from Deidra Bustos M.D., [facility] [employer], [facility] [employer] [place], [place] and are as follows: Final Diagnosis: Kidney, [...] addendum. Please see the complete report from [facility] [employer] in the patient's EMR. Electronically Signed Out Trace Meza MD Addendum ([facility]) Date Reported: 11/02/2023 Results of Addendum (Electron Microscopy) dated are received from Deidra Bustos M.D., [facility], [address] [place] [address] and are as follows: Paraffin-based immunofluorescence stains [...] case. Please see the complete report from [facility] in the patient's EMR. Electronically Signed Out Trace Meza MD Addendum ([facility]) Date Reported: 11/08/2023 Results of Mass Spectrometry dated 11/07/2023 are received from Adan Yates M.D., Ph.D., [facility], [address] [place] [address] and are as follows: MASS SPECTROMETRY Liquid chromatography tandem mass spectrometry (LC MS/MS) was performed on peptides extracted from glomeruli that were microdissected from the paraffin-embedded specimen. LC MS/MS did not detect a peptide profile consistent with any of the following antigens: PLA2R, THSD7A, EXT1/EXT2, NELL1, SEMA3B, CNTN1, NCAM1, PCSK6, PCDH7, FAT1 or NDNF. Please see the complete report from [facility] (more content not included)... CBC AND AUTO DIFFon 10-19-19 24 Band form neutrophils/100 WBC (Bld) 1.0 % Normal [facility] Comment on above: Performed By: #### C VIRGILIO CMP, , 2776-04, 1987-08 #### [facility] ([id number]) [address], [facility] [address] [place] [address] Erythrocyte distribution width (RBC) [Ratio] 14.9 % Normal 11.5-15.0 [facility] Comment on above: Performed By: #### C VIRGILIO CMP, , 2776-04, 1987-08 #### [facility] ([id number]) [address], [address] [place] [address] Hematocrit (Bld) [Volume fraction] 34.4 % Low 35-47 [facility] Comment on above: Performed By: #### C VIRGILIO [facility], , 2776-04, 1987-08 #### [facility] ([id number]) [address], [facility] [address] [place] [address] Hemoglobin (Bld) [Mass/Vol] 11.4 g/dL Low 11.7-15.5 [facility] Comment on above: Performed By: #### C BCA, CMP, , 2776-04, 1987-08 #### [facility] ([id number]) [address], [address] [address] Lymphocytes (Bld) [#/Vol] 1.9 10*3/uL Normal 1.0-3.5 [facility] Comment on above: Performed By: #### C BCA, CMP, , 2776-04, 1987-08 #### [facility] ([id number]) [address] [address] [place] [address] Lymphocytes/100 WBC (Bld) 15.0 % Normal [facility] Comment on above: Performed By: #### Shahla POOLE, CMP, , 2776-04, 1987-08 #### [facility] ([id number]) [address], [facility] [address] [place] [address] MCH (RBC) [Entitic mass] 27.8 pg Normal 27-34 [facility] Comment on above: Performed By: #### Shahla BCA, CMP, , 2776-04, 1987-08 #### [facility] ([id number]) [address], [facility] [address] [place] [address] MCHC (RBC) [Mass/Vol] 33.2 g/dL Normal 32-36 [facility] Comment on above: Performed By: #### Shahla BCA, CMP, , 2776-04, 1987-08 #### [facility] ([id number]) [address] [address] [place] [address] MCV (RBC) [Entitic vol] 84 fL Normal 80-100 [facility] Comment on above: Performed By: #### Shahla BCA, CMP, , 2776-04, 1987-08 #### [facility] ([id number]) [address] [address] [place] [address] Metamyelocytes/100 WBC (Bld) 1.0 % Normal [facility] Comment on above: Performed By: #### Shahla BCA, CMP, , 2776-04, 1987-08 #### [facility] ([id number]) [address] [address] [place] [address] Monocytes (Bld) [#/Vol] 0.1 10*3/uL Normal 0-0.9 [facility] Comment on above: Performed By: #### Shahla BCA, CMP, , 2776-04, 1987-08 #### [facility] ([id number]) [address], [address] [place] [address] Monocytes/100 WBC (Bld) 1.0 % Normal [facility] Comment on above: Performed By: #### C BCA, CMP, , 2776-04, 1987-08 #### [facility] ([id number]) [address], [facility] [address] [place] [address] Neutrophils (Bld) [#/Vol] 10.4 10*3/uL High 1.5-6.6 [facility] Comment on above: Performed By: #### C VIRGILIO, CMP, , 2776-04, 1987-08 #### [facility] ([id number]) [address] [address] [place] [address] Platelet mean volume (Bld) [Entitic vol] 9.3 fL Normal 7-12 [facility] Comment on above: Performed By: #### C VIRGILIO, CMP, , 2776-04, 1987-08 #### [facility] ([id number]) [address], [address] [address] Platelets (Bld) [#/Vol] 324 10*3/uL Normal 150-450 [facility] Comment on above: Performed By: #### C VIRGILIO, CMP, , 2776-04, 1987-08 #### [facility] ([id number]) [address], [facility] [address] [place] [address] POLYCHROMASIA 1+ Abnormal NONE [facility] Comment on above: Performed By: #### C BCA, CMP, , 2776-04, 1987-08 #### [facility] ([id number]) [address], [facility] [address] [place] [address] RBC COUNT 4.09 X10E12/L Normal 3.80-5.20 [facility] Comment on above: Performed By: #### C BCA, CMP, , 2776-04, 1987-08 #### [facility] ([id number]) [address], [address] [place] [address] SEG NEUTROPHIL 82.0 % Normal [facility] Comment on above: Performed By: #### C BCA, CMP, , 2776-04, 1987-08 #### [facility] ([id number]) [address], [address] [place] [address] WBC (Bld) [#/Vol] 12.5 10*3/uL High 4.0-11.0 [facility] Comment on above: Performed By: #### C BCA, CMP, , 2776-04, 1987-08 #### [facility] ([id number]) [address], [address] [place] [address] [address] [facility] 10-19-2023 Albumin [Mass/Vol] 3.7 g/dL Normal 3.2-5.3 [facility] Comment on above: Performed By: #### C BCA, CMP, , 2776-04, 1987-08 #### [facility] ([id number]) [address], [address] [place] [address] ALP [Catalytic activity/Vol] 58 U/L Normal 39-130 [facility] Comment on above: Performed By: #### C BCA, CMP, , 2776-04, 1987-08 #### [facility] ([id number]) [address], [address] [place] [address] ALT [Catalytic activity/Vol] 10 U/L Normal 0-31 [facility] Comment on above: Performed By: #### C BCA, CMP, , 2776-04, 1987-08 #### [facility] ([id number]) [address], [address] [place] [address] Anion gap [Moles/Vol] 13 mmol/L Normal 5-15 [facility] Comment on above: Performed By: #### C BCA, CMP, , 2776-04, 1987-08 #### [facility] ([id number]) [address], [address] [place] [address] AST [Catalytic activity/Vol] 17 U/L Normal 0-41 [facility] Comment on above: Performed By: #### C BCA, CMP, , 2776-04, 1987-08 #### [facility] ([id number]) [address] [place] [address] Bilirubin [Mass/Vol] 0.3 mg/dL Normal 0.3-1.2 [facility] Comment on above: Performed By: #### C BCA, CMP, , 2776-04, 1987-08 #### [facility] ([id number]) [address], [address] [place] [address] Calcium [Mass/Vol] 9.9 mg/dL Normal 8.5-10.5 [facility] Comment on above: Performed By: #### C BCA, CMP, , 2776-04, 1987-08 #### [facility] ([id number]) [address], [address] [place] [address] Chloride [Moles/Vol] 95 mmol/L Low 98-109 [facility] Comment on above: Performed By: #### C BCA, CMP, , 2776-04, 1987-08 #### [facility] ([id number]) [address], [address] [place] [address] CO2 [Moles/Vol] 28 mmol/L Normal 22-32 [facility] Comment on above: Performed By: #### C BCA, CMP, , 2776-04, 1987-08 #### [facility] ([id number]) [address], [address] [place] [address] Creatinine [Mass/Vol] 3.62 mg/dL High 0.40-1.00 [facility] Comment on above: Result Comment: METH OD TRACEABLE TO IDMS STANDARD Performed By: #### C EDEL POOLE, , 2776-04, 1987-08 #### [facility] ([id number]) [address], [address] [place] [address] GFR/1.73 sq M.predicted among non-blacks MDRD (S/P/Bld) [Vol rate/Area] 14 mL/min/{1.73_m2} Low >59 [facility] Comment on above: Result Comment: Reported eGFR is based on the CKD-EPI 2020 equation that does not use a race coefficient. Performed By: #### C EDEL POOLE, , 2776-04, 1987-08 #### [facility] ([id number]) [address] [place] [address] Glucose [Mass/Vol] 146 mg/dL High 65-99 [facility] Comment on above: Performed By: #### C EDEL POOLE, , 2776-04, 1987-08 #### [facility] ([id number]) [address] [place] [address] Potassium [Moles/Vol] 5.2 mmol/L High 3.5-5.0 [facility] Comment on above: Performed By: #### C EDEL POOLE, , 2776-04, 1987-08 #### [facility] ([id number]) [address], [address] [place] [address] Protein [Mass/Vol] 6.4 g/dL Normal 6.0-8.0 [facility] Comment on above: Performed By: #### C VIRGILIO CMP, , 2776-04, 1987-08 #### [facility] ([id number]) [address], [address] [place] [address] Sodium [Moles/Vol] 136 mmol/L Normal 134-146 [facility] Comment on above: Performed By: #### C BCA, CMP, , 2776-04, 1987-08 #### [facility] ([id number]) [address], [address] [place] [address] Urea nitrogen [Mass/Vol] 53 mg/dL High 5-23 [facility] Comment on above: Performed By: #### C BCA, CMP, , 2776-04, 1987-08 #### [facility] ([id number]) [address] [place] [address] CRP [Mass/Vol]on 10-19-2023 C REACTIVE PROTEIN 0.9 mg/dL High 0.000-0.744 [facility] Comment on above: Performed By: #### C BCA, [facility], , 2776-04, 1987-08 #### [facility] ([id number]) [address] [place] [address] Calcium.ionized (Bld) [Mass/ Vol]on 10-19-2023 IONIZED CALCIUM 4.6 mg/dL Normal 4.5-5.3 [facility] Comment on above: Performed By: #### 3 8230-9 #### [facility] ([id number]) [address] [place] [address] IMMUNOGLOBULINSon 10-19-2023 IgA [Mass/Vol] 109 mg/dL Normal 68-378 [facility] Comment on above: Performed By: #### P INR, 28573-5, IMGB #### [facility] ([id number]) [address] [place] [address] IgG [Mass/Vol] 460 mg/dL Low 635-1741 [facility] Comment on above: Performed By: #### P INR, 50299-5, IMGB #### [facility] ([id number]) [address] [place] [address] IgM [Mass/Vol] 98 mg/dL Normal 45-281 [facility] Comment on above: Performed By: #### P INR, 16043-8, IMGB #### [facility] ([id number]) [address] [place] [address] MAGNESIUMon 10-19-2023 Magnesium [Mass/Vol] 2.0 mg/dL Normal 1.8-2.6 [facility] Comment on above: Performed By: #### C VIRGILIO, CMP, , 2776-04, 1987-08 #### [facility] ([id number]) [address] [place] [address] PHOSPHORUSon 10-19-2023 Phosphate [Mass/Vol] 4.8 mg/dL Normal 2.4-4.9 [facility] Comment on above: Performed By: #### C BCA, CMP, , 2776-04, 1987-08 #### [facility] ([id number]) [address] [place] [address] PLATELET FUNCTIONon 10-19-19 24 COLLAGEN/ADP 72 sec Normal 0-114 [facility] Comment on above: Performed By: #### P FA, PINR, 76509-8 #### [facility] ([id number]) [address] [place] [address] COLLAGEN/EPINEPHRINE 81 sec Normal 0-179 [facility] Comment on above: Performed By: #### P FA, PINR, 45437-8 #### [facility] ([id number]) [address] [place] [address] PFA INTERP Platelet function is normal. If patient Normal [facility] Comment on above: Result Comment: hist ory/physical examination gives strong indication of a bleeding disorder, consider testing for other etiologies. Performed By: #### P FA, PINR, 42035-8 #### [facility] ([id number]) [address] [place] [address] PROTIME AND INRon 10-19-2023 INR Coag (PPP) [Relative time] 0.9 {INR} Normal 0.8-1.1 [facility] Comment on above: Performed By: #### C BCA, CMP, , 2776-04, 1987-08 #### [facility] ([id number]) [address], [address] [place] [address] PT Coag (PPP) [Time] 10.4 s Normal 9.8-13.2 [facility] Comment on above: Performed By: #### C BCA, CMP, , 2776-04, 1987-08 #### [facility] ([id number]) [address], [address] [place] [address] INR Coag (PPP) [Relative time] 0.9 {INR} Normal 0.8-1.1 [facility] Comment on above: Performed By: #### P INR, 57778-7, IMGB #### [facility] ([id number]) [address], [address] [place] [address] PT Coag (PPP) [Time] 10.4 s Normal 9.8-13.2 [facility] Comment on above: Performed By: #### P INR, 36324-5, IMGB #### [facility] ([id number]) [address] [place] [address] aPTT Coag (PPP) [Time]on aPTT Coag (Bld) [Time] 40 s High 26-37 [facility] Comment on above: Performed By: #### C BCA, CMP, , 2776-, 1987-08 #### [facility] ([id number]) [address] [place] [address] aPTT Coag (Bld) [Time] 34 s Normal 26-37 [facility] Comment on above: Performed By: #### P INR, 61303-7, IMGB #### [facility] ([id number]) [address] [place] [address] Basement membrane IgG Qn (S) on 10-18-2023 Glomerular Base Memb IgG <0.2 Normal <1.0 (Negative) [facility] Comment on above: Result Comment: NOTE Test Performed by: [facility] [address] [place] [address] [employer] Apprentice: Ledy Son Ph.D.; CLIA# [id number] Performed By: #### 8 9579-7 #### [facility] ([id number]) [address] [place] [address] CBC AND AUTO DIFFon 10-18-19 ABSOLUTE BASOPHIL 0.1 X10E9/L Normal 0.0-0.2 [facility] Comment on above: Performed By: #### C BCA, CMP, , 2776-04 ####[facility] ([id number])[address] [place] [address] 04308 ABSOLUTE NEUTROPHIL 4.5 X10E9/L Normal 1.5-6.6 [facility] Comment on above: Performed By: #### C BCA, CMP, , 2776-04 ####[facility] ([id number])[address] [place] [address] 50525 Basophils/100 WBC (Bld) 1.0 % Normal [facility] Comment on above: Performed By: #### C BCA, CMP, , 2776-04 ####[facility] ([id number])[address] [place] [address] 66683 Eosinophils (Bld) [#/Vol] 0.4 10*3/uL Normal 0.0-0.4 [facility] Comment on above: Performed By: #### C EDEL POOLE, , 2776-04 ####[facility] ([id number])[address] [place] [address] 58569 Eosinophils/100 WBC (Bld) 5.1 % Normal [facility] Comment on above: Performed By: #### Shahla OPOLE [facility], , 2776-04 ####[facility] ([id number])[address] [place] [address] 48355 Erythrocyte distribution width (RBC) [Ratio] 15.0 % Normal 11.5-15.0 [facility] Comment on above: Performed By: #### Shahla POOLE [facility], , 2776-04 ####[facility] ([id number])[address] [place] [address] 91647 Hematocrit (Bld) [Volume fraction] 31.7 % Low 35-47 [facility] Comment on above: Performed By: #### Shahla POOLE CMP, , 2776-04 ####[facility] ([id number])[address] [place] [address] 77963 Hemoglobin (Bld) [Mass/Vol] 10.5 g/dL Low 11.7-15.5 [facility] Comment on above: Performed By: #### Shahla POOLE, CMP, , 2776-04 ####[facility] ([id number])[address] [place] [address] 16960 Lymphocytes (Bld) [#/Vol] 2.1 10*3/uL Normal 1.0-3.5 [facility] Comment on above: Performed By: #### C BCA, CMP, , 2776-04 ####[facility] ([id number])[address] [place] [address] 43544 Lymphocytes/100 WBC (Bld) 27.3 % Normal [facility] Comment on above: Performed By: #### Shahla POOLE, CMP, , 2776-04 ####[facility] ([id number])[address] [place] [address] 17355 MCH (RBC) [Entitic mass] 27.7 pg Normal 27-34 [facility] Comment on above: Performed By: #### Shahla POOLE CMP, , 2776-04 ####[facility] ([id number])[address] [place] [address] 38148 MCHC (RBC) [Mass/Vol] 33.1 g/dL Normal 32-36 [facility] Comment on above: Performed By: #### Shahla POOLE, CMP, , 2776-04 ####[facility] ([id number])[address] [place] [address] 81236 MCV (RBC) [Entitic vol] 84 fL Normal 80-100 [facility] Comment on above: Performed By: #### Shahla POOLE CMP, , 2776-04 ####[facility] ([id number])[address] [place] [address] 47293 Monocytes (Bld) [#/Vol] 0.7 10*3/uL Normal 0-0.9 [facility] Comment on above: Performed By: #### Shahla POOLE, CMP, , 2776-04 ####[facility] ([id number])[address] [place] [address] 40408 Monocytes/100 WBC (Bld) 9.1 % Normal [facility] Comment on above: Performed By: #### Sahhla POOLE CMP, , 2776-04 ####[facility] ([id number])[address] [place] [address] 35137 Neutrophils/100 WBC (Bld) 57.5 % Normal [facility] Comment on above: Performed By: #### C VIRGILIO CMP, , 2776-04 ####[facility] ([id number])[address] [place] [address] 86420 Platelet mean volume (Bld) [Entitic vol] 8.9 fL Normal 7-12 [facility] Comment on above: Performed By: #### C VIRGILIO CMP, , 2776-04 ####[facility] ([id number])[address] [place] [address] 72867 Platelets (Bld) [#/Vol] 328 10*3/uL Normal 150-450 [facility] Comment on above: Performed By: #### C VIRGILIO, CMP, , 2776-04 ####[facility] ([id number])[address] [place] [address] 11257 RBC COUNT 3.77 X10E12/L Low 3.80-5.20 [facility] Comment on above: Performed By: #### C VIRGILIO CMP, , 2776-04 ####[facility] ([id number])[address] [place] [address] 42484 WBC (Bld) [#/Vol] 7.8 10*3/uL Normal 4.0-11.0 [facility] Comment on above: Performed By: #### Shahla POOLE, CMP, , 2776-04 ####[facility] ([id number])[address] [place] [address] 21679 COMPREHENSIVE METABOLIC PANE Phu 10-18-2023 Albumin [Mass/Vol] 3.1 g/dL Low 3.2-5.3 [facility] Comment on above: Performed By: #### C BCA, CMP, , 2776-04 ####[facility] ([id number])[address] [place] [address] 82689 ALP [Catalytic activity/Vol] 57 U/L Normal 39-130 [facility] Comment on above: Performed By: #### C BCA, CMP, , 2776-04 ####[facility] ([id number])[address] [place] [address] 26557 ALT [Catalytic activity/Vol] 10 U/L Normal 0-31 [facility] Comment on above: Performed By: #### C BCA, CMP, , 2776-04 ####[facility] ([id number])[address] [place] [address] 11062 Anion gap [Moles/Vol] 11 mmol/L Normal 5-15 [facility] Comment on above: Performed By: #### C BCA, CMP, , 2776-04 ####[facility] ([id number])[address] [place] [address] 86740 AST [Catalytic activity/Vol] 14 U/L Normal 0-41 [facility] Comment on above: Performed By: #### C BCA, CMP, , 2776-04 ####[facility] ([id number])[address] [place] [address] [place] [address] Bilirubin [Mass/Vol] 0.7 mg/dL Normal 0.3-1.2 [facility] Comment on above: Performed By: #### C BCA, CMP, , 2776-04 ####[facility] ([id number])[address] [place] [address] [place] [address] Calcium [Mass/Vol] 9.3 mg/dL Normal 8.5-10.5 [facility] Comment on above: Performed By: #### C BCA, CMP, , 2776-04 ####[facility] ([id number])[address] [place] [address] 32812 Chloride [Moles/Vol] 97 mmol/L Low 98-109 [facility] Comment on above: Performed By: #### C BCA, CMP, , 2776-04 ####[facility] ([id number])[address] [place] [address] 05023 CO2 [Moles/Vol] 29 mmol/L Normal 22-32 [facility] Comment on above: Performed By: #### C BCA, CMP, , 2776-04 ####[facility] ([id number])[address] [place] [address] 07351 Creatinine [Mass/Vol] 2.98 mg/dL High 0.40-1.00 [facility] Comment on above: Result Comment: METH OD TRACEABLE TO IDMS STANDARD Performed By: #### C VIRGILIO, CMP, , 2776-04 ####[facility] ([id number])[address] [place] [address] 53298 GFR/1.73 sq M.predicted among non-blacks MDRD (S/P/Bld) [Vol rate/Area] 18 mL/min/{1.73_m2} Low >59 [facility] Comment on above: Result Comment: Reported eGFR is based on the CKD-EPI 1 equation that does not use a race coefficient. Performed By: #### C BCA, CMP, , 2776-04 ####[facility] ([id number])[address] [place] [address] 26852 Glucose [Mass/Vol] 92 mg/dL Normal 65-99 [facility] Comment on above: Performed By: #### C BCA, CMP, , 2776-04 ####[facility] ([id number])[address] [place] [address] 52670 Potassium [Moles/Vol] 4.2 mmol/L Normal 3.5-5.0 [facility] Comment on above: Performed By: #### C EDEL POOLE, , 2776-04 ####[facility] ([id number])[address] [place] [address] 66323 Protein [Mass/Vol] 6.0 g/dL Normal 6.0-8.0 [facility] Comment on above: Performed By: #### C EDEL POOLE, , 2776-04 ####[facility] ([id number])[address] [place] [address] 40495 Sodium [Moles/Vol] 137 mmol/L Normal 134-146 [facility] Comment on above: Performed By: #### C EDEL POOLE, , 2776-04 ####[facility] ([id number])[address] [place] [address] 44962 Urea nitrogen [Mass/Vol] 37 mg/dL High 5-23 [facility] Comment on above: Performed By: #### C EDEL POOLE, , 2776-04 ####[facility] ([id number])[address] [place] [address] 17613 Calcium.ionized (Bld) [Moles /Vol]on 10-18-2023 PORTABLE ICA 4.7 mg/dL Normal 4.5-5.3 [facility] Comment on above: Performed By: #### 8 9579-7 #### [facility] ([id number]) [address] [place] [address] 01631 MAGNESIUMon 10-18-2023 Magnesium [Mass/Vol] 2.0 mg/dL Normal 1.8-2.6 [facility] Comment on above: Performed By: #### C EDEL POOLE, , 2776-04 ####[facility] ([id number])[address] [place] [address] 29498 Myeloperoxidase IgG Qn (S)on 10-18-2023 Myeloperoxidase IgG >8.0 High <0.4 (Negative) [facility] Comment on above: Result Comment: NOTE Interpretation: Positive (>=1.0) Test Performed by: [facility] [address] [id number] [employer] Operator Apprentice: Ledy Son Ph.D.; CLIA# [id number] Performed By: #### 8 9579-7 #### [facility] ([id number]) [address] [place] [address] 33639 PHOSPHORUSon 10-18-2023 Phosphate [Mass/Vol] 5.1 mg/dL High 2.4-4.9 [facility] Comment on above: Performed By: #### C BCA, CMP, 73689-0, 2777-1 ####[facility] ([id number])[address] [place] [address] 32638 CBC AND AUTO DIFFon 10-17-19 ABSOLUTE BASOPHIL 0.1 X10E9/L Normal 0.0-0.2 [facility] Comment on above: Performed By: #### C BCA, BMP, 52965-4, 01417-7, 17684-4 #### [facility] ([id number]) [address] [place] [address] 04149 ABSOLUTE NEUTROPHIL 4.9 X10E9/L Normal 1.5-6.6 [facility] Comment on above: Performed By: #### C BCA, BMP, 25327-2, 45199-9, 10146-7 #### [facility] ([id number]) [address] [place] [address] 25893 Basophils/100 WBC (Bld) 0.7 % Normal [facility] Comment on above: Performed By: #### C BCA, BMP, 68937-0, 54896-2, 45179-2 #### [facility] ([id number]) [address] [place] [address] 42651 Eosinophils (Bld) [#/Vol] 0.3 10*3/uL Normal 0.0-0.4 [facility] Comment on above: Performed By: #### C BCA, BMP, 91992-1, 43540-7, 60076-5 #### [facility] ([id number]) [address] [place] [address] 21228 Eosinophils/100 WBC (Bld) 4.3 % Normal [facility] Comment on above: Performed By: #### C BCA, BMP, , 19371-5, 49057-7 #### [facility] ([id number]) [address] [place] [address] 05387 Erythrocyte distribution width (RBC) [Ratio] 14.7 % Normal 11.5-15.0 [facility] Comment on above: Performed By: #### C VIRGILIO, BMP, , 38002-1, 37499-0 #### [facility] ([id number]) [address] [place] [address] 44006 Hematocrit (Bld) [Volume fraction] 30.3 % Low 35-47 [facility] Comment on above: Performed By: #### C BCA, BMP, 41098-6, 91002-9, 14265-3 #### [facility] ([id number]) [address] [place] [address] 63053 Hemoglobin (Bld) [Mass/Vol] 10.1 g/dL Low 11.7-15.5 [facility] Comment on above: Performed By: #### C BCA, BMP, 43791-1, 83285-9, 29373-4 #### [facility] ([id number]) [address] [place] [address] 10430 Lymphocytes (Bld) [#/Vol] 1.9 10*3/uL Normal 1.0-3.5 [facility] Comment on above: Performed By: #### C VIRGILIO, BMP, , 18972-8, 32298-7 #### [facility] ([id number]) [address] [place] [address] 12159 Lymphocytes/100 WBC (Bld) 24.6 % Normal [facility] Comment on above: Performed By: #### C VIRGILIO, BMP, , 86625-1, 74662-3 #### [facility] ([id number]) [address] [place] [address] 42936 MCH (RBC) [Entitic mass] 27.9 pg Normal 27-34 [facility] Comment on above: Performed By: #### Shahla POOLE, BMP, , 00188-4, 17572-6 #### [facility] ([id number]) [address] [place] [address] 92855 MCHC (RBC) [Mass/Vol] 33.4 g/dL Normal 32-36 [facility] Comment on above: Performed By: #### Shahla POOLE, BMP, , 66790-0, 43412-7 #### [facility] ([id number]) [address] [place] [address] 54760 MCV (RBC) [Entitic vol] 84 fL Normal 80-100 [facility] Comment on above: Performed By: #### Shahla POOLE, BMP, , 06939-2, 25991-5 #### [facility] ([id number]) [address] [place] [address] 53066 Monocytes (Bld) [#/Vol] 0.6 10*3/uL Normal 0-0.9 [facility] Comment on above: Performed By: #### Shahla POOLE, BMP, , 45610-3, 71140-2 #### [facility] ([id number]) [address] [place] [address] 53894 Monocytes/100 WBC (Bld) 8.3 % Normal [facility] Comment on above: Performed By: #### Shahla BCA, BMP, 50468-4, 81163-7, 43720-0 #### [facility] ([id number]) [address] [place] [address] 11944 Neutrophils/100 WBC (Bld) 62.1 % Normal [facility] Comment on above: Performed By: #### Shahla BCA, BMP, 83277-4, 41418-7, 17858-5 #### [facility] ([id number]) [address] [place] [address] 22326 Platelet mean volume (Bld) [Entitic vol] 9.0 fL Normal 7-12 [facility] Comment on above: Performed By: #### Shahla BCA, BMP, , 65301-9, 39619-6 #### [facility] ([id number]) [address] [place] [address] 99776 Platelets (Bld) [#/Vol] 278 10*3/uL Normal 150-450 [facility] Comment on above: Performed By: #### Shahla POOLE, BMP, 21642-4, 01554-3, 48710-6 #### [facility] ([id number]) [address] [place] [address] 07116 RBC COUNT 3.62 X10E12/L Low 3.80-5.20 [facility] Comment on above: Performed By: #### Shahla BCA, BMP, , 56033-2, 71291-1 #### [facility] ([id number]) [address] [place] [address] 27432 WBC (Bld) [#/Vol] 7.9 10*3/uL Normal 4.0-11.0 [facility] Comment on above: Performed By: #### C BCA, BMP, 36253-0, 71322-3, 17015-3 #### [facility] ([id number]) [address] [place] [address] 98244 COMPREHENSIVE METABOLIC PANE Phu 10-17-2023 Albumin [Mass/Vol] 3.0 g/dL Low 3.2-5.3 [facility] Comment on above: Performed By: #### C BCA, BMP, 53538-0, 41175-8, 36041-6 #### [facility] ([id number]) [address] [place] [address] 57851 ALP [Catalytic activity/Vol] 56 U/L Normal 39-130 [facility] Comment on above: Performed By: #### C BCA, BMP, 80261-6, 90544-1, 62677-0 #### [facility] ([id number]) [address] [place] [address] 83964 ALT [Catalytic activity/Vol] 10 U/L Normal 0-31 [facility] Comment on above: Performed By: #### C BCA, BMP, 26238-8, 10666-3, 48192-3 #### [facility] ([id number]) [address] [place] [address] 04445 Anion gap [Moles/Vol] 10 mmol/L Normal 5-15 [facility] Comment on above: Performed By: #### C BCA, BMP, 67410-7, 79166-2, 10711-5 #### [facility] ([id number]) [address] [place] [address] 47493 AST [Catalytic activity/Vol] 14 U/L Normal 0-41 [facility] Comment on above: Performed By: #### C BCA, BMP, 31493-2, 59681-6, 94556-4 #### [facility] ([id number]) [address] [place] [address] 28665 Bilirubin [Mass/Vol] 0.7 mg/dL Normal 0.3-1.2 [facility] Comment on above: Performed By: #### C BCA, BMP, 35272-7, 59828-8, 80115-9 #### [facility] ([id number]) [address] [place] [address] 40904 Calcium [Mass/Vol] 8.8 mg/dL Normal 8.5-10.5 [facility] Comment on above: Performed By: #### C BCA, BMP, 67273-7, 91846-5, 17992-2 #### [facility] ([id number]) [address] [place] [address] 50482 Chloride [Moles/Vol] 101 mmol/L Normal 98-109 [facility] Comment on above: Performed By: #### C BCA, BMP, 48137-8, 70909-1, 32003-0 #### [facility] ([id number]) [address] [place] [address] 17909 CO2 [Moles/Vol] 28 mmol/L Normal 22-32 [facility] Comment on above: Performed By: #### C BCA, BMP, 38911-7, 75484-2, 38469-9 #### [facility] ([id number]) [address] [place] [address] 29042 Creatinine [Mass/Vol] 2.77 mg/dL High 0.40-1.00 [facility] Comment on above: Result Comment: METH OD TRACEABLE TO IDMS STANDARD Performed By: #### C BCA, BMP, 05663-1, 82792-0, 13305-7 #### [facility] ([id number]) [address] [place] [address] 66561 GFR/1.73 sq M.predicted among non-blacks MDRD (S/P/Bld) [Vol rate/Area] 19 mL/min/{1.73_m2} Low >59 [facility] Comment on above: Result Comment: Reported eGFR is based on the CKD-EPI 2020 equation that does not use a race coefficient. Performed By: #### C MARIO POOLE, 14115-3, 54272-0, 78055-4 #### [facility] ([id number]) [address] [place] [address] 77501 Glucose [Mass/Vol] 97 mg/dL Normal 65-99 [facility] Comment on above: Performed By: #### C VIRGILIO, MARIO, 19789-2, 54991-5, 91444-8 #### [facility] ([id number]) [address] [place] [address] 79678 Potassium [Moles/Vol] 3.6 mmol/L Normal 3.5-5.0 [facility] Comment on above: Performed By: #### C VIRGILIO, MARIO, , 86898-8, 37412-4 #### [facility] ([id number]) [address] [place] [address] 65910 Protein [Mass/Vol] 5.7 g/dL Low 6.0-8.0 [facility] Comment on above: Performed By: #### C MARIO POOLE, 45175-0, 88612-0, 43708-9 #### [facility] ([id number]) [address] [place] [address] 45968 Sodium [Moles/Vol] 139 mmol/L Normal 134-146 [facility] Comment on above: Performed By: #### C VIRGILIO, BMP, 87081-8, 42541-1, 58603-6 #### [facility] ([id number]) [address] [place] [address] 16096 Urea nitrogen [Mass/Vol] 26 mg/dL High 5-23 [facility] Comment on above: Performed By: #### C VIRGILIO, BMP, 60144-3, 53672-1, 32291-8 #### [facility] ([id number]) [address] [place] [address] 79484 Calcium.ionized (Bld) [Moles /Vol]on 10-17-2023 PORTABLE ICA 4.7 mg/dL Normal 4.5-5.3 [facility] Comment on above: Performed By: #### C VIRGILIO, BMP, 61012-5, 13987-1, 15498-8 #### [facility] ([id number]) [address] [place] [address] 24284 FECAL OCCULT BLOODon 024 Hemoglobin.gastrointe stinal Ql (Stl) Negative Normal NEG [facility] Comment on above: Performed By: #### 2 335-8 ####[facility] ([id number])[address] [place] [address] 63229 MAGNESIUMon 10-17-2023 Magnesium [Mass/Vol] 2.0 mg/dL Normal 1.8-2.6 [facility] Comment on above: Performed By: #### C VIRGILIO, MARIO, 67052-2, 72704-6, 35316-5 #### [facility] ([id number]) [address] [place] [address] 35827 NM VENTILATION PERFUSION CHAZ G SCANon 10-17-2023 [...] Lowery MD on 10/17/2023 9:13 AM Normal [facility] PHOSPHORUSon 10-17-2023 Phosphate [Mass/Vol] 4.1 mg/dL Normal 2.4-4.9 [facility] Comment on above: Performed By: #### C BCA, BMP, , 78429-0, 67438-4 #### [facility] ([id number]) [address] [place] [address] 58490 POTASSIUMon 10-17-2023 Potassium [Moles/Vol] 4.2 mmol/L Normal 3.5-5.0 [facility] Comment on above: Performed By: #### 2 823-3 ####[facility] ([id number])[address] [place] [address] 86482 THYROID PROFILEon 10-17-2023 Free T4 [Mass/Vol] 1.19 ng/dL Normal 0.61-1.60 [facility] Comment on above: Performed By: #### C BCA, BMP, , 77703-4, 24346-8 #### [facility] ([id number]) [address] [place] [address] 40632 TSH 2.17 uIU/mL Normal 0.49-4.67 [facility] Comment on above: Performed By: #### C BCA, BMP, , 05539-0, 62495-3 #### [facility] ([id number]) [address] [place] [address] 98321 24 HR URINE CREATININEon URINE CREATININE 1.38 g/24h Normal 0.80-1.80 [facility] Comment on above: Performed By: #### U CRMARIONO ####[facility] ([id number])[address] [place] [address], [address] [place] [address] 34870 24 HR URINE TOTAL PROTEINon 10-16-2023 URINE TOTAL PROTEIN 6380 mg/24h High 0-150 [facility] Comment on above: Performed By: #### U CR, UPRO ####[facility] ([id number])[address] [facility], [address] [address] CBC AND AUTO DIFFon 10-16-19 ABSOLUTE BASOPHIL 0.0 X10E9/L Normal 0.0-0.2 [facility] Comment on above: Performed By: #### C BCA, BMP, 43319-9, 13045-8, 01183-6 #### [facility] ([id number]) [address] [place] [address]45 ABSOLUTE NEUTROPHIL 4.9 X10E9/L Normal 1.5-6.6 [facility] Comment on above: Performed By: #### C BCA, BMP, 29331-3, 74771-6, 48681-4 #### [facility] ([id number]) [address] [place] [address] 35377 Basophils/100 WBC (Bld) 0.6 % Normal [facility] Comment on above: Performed By: #### C BCA, BMP, 06363-4, 73789-5, 22863-2 #### [facility] ([id number]) [address] [place] [address] 58349 Eosinophils (Bld) [#/Vol] 0.3 10*3/uL Normal 0.0-0.4 [facility] Comment on above: Performed By: #### C BCA, BMP, 39179-5, 41068-2, 27767-8 #### [facility] ([id number]) [address] [place] [address] 76193 Eosinophils/100 WBC (Bld) 4.2 % Normal [facility] Comment on above: Performed By: #### C BCA, BMP, 89225-0, 05617-4, 05962-6 #### [facility] ([id number]) [address] [place] [address] 42761 Erythrocyte distribution width (RBC) [Ratio] 14.8 % Normal 11.5-15.0 [facility] Comment on above: Performed By: #### C BCA, BMP, , 38625-3, 88080-0 #### [facility] ([id number]) [address] [place] [address] 92505 Hematocrit (Bld) [Volume fraction] 28.5 % Low 35-47 [facility] Comment on above: Performed By: #### C BCA, BMP, , 84339-8, 12489-7 #### [facility] ([id number]) [address] [place] [address] 85990 Hemoglobin (Bld) [Mass/Vol] 9.5 g/dL Low 11.7-15.5 [facility] Comment on above: Performed By: #### Shahla BCA, BMP, , 99412-2, 85027-6 #### [facility] ([id number]) [address] [place] [address] 84498 Lymphocytes (Bld) [#/Vol] 2.1 10*3/uL Normal 1.0-3.5 [facility] Comment on above: Performed By: #### C BCA, BMP, , 32721-2, 02414-8 #### [facility] ([id number]) [address] [place] [address] 38682 Lymphocytes/100 WBC (Bld) 26.6 % Normal [facility] Comment on above: Performed By: #### C BCA, BMP, , 18175-8, 44273-8 #### [facility] ([id number]) [address] [place] [address] 15862 MCH (RBC) [Entitic mass] 27.7 pg Normal 27-34 [facility] Comment on above: Performed By: #### C BCA, BMP, , 22783-3, 72288-6 #### [facility] ([id number]) [address] [place] [address] 04718 MCHC (RBC) [Mass/Vol] 33.6 g/dL Normal 32-36 [facility] Comment on above: Performed By: #### Shahla BCA, BMP, 82312-8, 16859-6, 31583-7 #### [facility] ([id number]) [address] [place] [address] 74411 MCV (RBC) [Entitic vol] 83 fL Normal 80-100 [facility] Comment on above: Performed By: #### Shahla BCA, BMP, , 53290-7, 64070-2 #### [facility] ([id number]) [address] [place] [address] 61010 Monocytes (Bld) [#/Vol] 0.7 10*3/uL Normal 0-0.9 [facility] Comment on above: Performed By: #### C BCA, BMP, 94882-0, 09505-2, 97715-0 #### [facility] ([id number]) [address] [place] [address] 21812 Monocytes/100 WBC (Bld) 8.2 % Normal [facility] Comment on above: Performed By: #### Shahla BCA, BMP, 71651-4, 31291-2, 06721-5 #### [facility] ([id number]) [address] [place] [address] 83499 Neutrophils/100 WBC (Bld) 60.4 % Normal [facility] Comment on above: Performed By: #### Shahla BCA, BMP, , 46733-3, 88919-9 #### [facility] ([id number]) [address] [place] [address] 40409 Platelet mean volume (Bld) [Entitic vol] 8.9 fL Normal 7-12 [facility] Comment on above: Performed By: #### C BCA, BMP, 75975-9, 05498-2, 48666-8 #### [facility] ([id number]) [address] [place] [address] 83005 Platelets (Bld) [#/Vol] 252 10*3/uL Normal 150-450 [facility] Comment on above: Performed By: #### C BCA, BMP, 76522-3, 22460-7, 83294-1 #### [facility] ([id number]) [address] [place] [address] 47711 RBC COUNT 3.45 X10E12/L Low 3.80-5.20 [facility] Comment on above: Performed By: #### C BCA, BMP, 49062-6, 11796-3, 17813-2 #### [facility] ([id number]) [address] [place] [address] 66957 WBC (Bld) [#/Vol] 8.0 10*3/uL Normal 4.0-11.0 [facility] Comment on above: Performed By: #### C BCA, BMP, 43619-2, 64135-9, 98727-6 #### [facility] ([id number]) [address] [place] [address] 05926 COMPREHENSIVE METABOLIC PANE Phu 10-16-2023 Albumin [Mass/Vol] 2.7 g/dL Low 3.2-5.3 [facility] Comment on above: Performed By: #### C BCA, BMP, 72121-0, 75451-8, 53471-0 #### [facility] ([id number]) [address] [place] [address] 61318 ALP [Catalytic activity/Vol] 55 U/L Normal 39-130 [facility] Comment on above: Performed By: #### C BCA, BMP, 78522-5, 45288-5, 90805-0 #### [facility] ([id number]) [address] [place] [address] 16991 ALT [Catalytic activity/Vol] 9 U/L Normal 0-31 [facility] Comment on above: Performed By: #### C BCA, BMP, 02032-2, 26056-6, 53128-0 #### [facility] ([id number]) [address] [place] [address] 51989 Anion gap [Moles/Vol] 8 mmol/L Normal 5-15 [facility] Comment on above: Performed By: #### C BCA, BMP, 35774-9, 25510-5, 84397-4 #### [facility] ([id number]) [address] [place] [address] 49990 AST [Catalytic activity/Vol] 13 U/L Normal 0-41 [facility] Comment on above: Performed By: #### C BCA, BMP, 66305-3, 04595-3, 89729-8 #### [facility] ([id number]) [address] [place] [address] 05756 Bilirubin [Mass/Vol] 0.4 mg/dL Normal 0.3-1.2 [facility] Comment on above: Performed By: #### C BCA, BMP, 39775-0, 44424-0, 70394-8 #### [facility] ([id number]) [address] [place] [address] 94873 Calcium [Mass/Vol] 8.4 mg/dL Low 8.5-10.5 [facility] Comment on above: Performed By: #### C BCA, BMP, 94907-4, 99634-1, 45231-5 #### [facility] ([id number]) [address] [place] [address] 99596 Chloride [Moles/Vol] 101 mmol/L Normal 98-109 [facility] Comment on above: Performed By: #### C BCA, BMP, , 49422-8, 43339-9 #### [facility] ([id number]) [address] [place] [address] 96394 CO2 [Moles/Vol] 28 mmol/L Normal 22-32 [facility] Comment on above: Performed By: #### C BCA, BMP, , 81058-9, 63192-0 #### [facility] ([id number]) [address] [place] [address] 43808 Creatinine [Mass/Vol] 2.63 mg/dL High 0.40-1.00 [facility] Comment on above: Result Comment: METH OD TRACEABLE TO IDMS STANDARD Performed By: #### C VIRGILIO, BMP, , 14468-2, 24896-1 #### [facility] ([id number]) [address] [place] [address] 92740 GFR/1.73 sq M.predicted among non-blacks MDRD (S/P/Bld) [Vol rate/Area] 20 mL/min/{1.73_m2} Low >59 [facility] Comment on above: Result Comment: Reported eGFR is based on the CKD-EPI 2020 equation that does not use a race coefficient. Performed By: #### C BCA, BMP, , 59917-8, 10016-7 #### [facility] ([id number]) [address] [place] [address] 52775 Glucose [Mass/Vol] 107 mg/dL High 65-99 [facility] Comment on above: Performed By: #### C BCA, BMP, , 52139-8, 85691-4 #### [facility] ([id number]) [address] [place] [address] 23341 Potassium [Moles/Vol] 3.2 mmol/L Low 3.5-5.0 [facility] Comment on above: Performed By: #### C BCA, BMP, 15462-7, 27911-3, 01590-5 #### [facility] ([id number]) [address] [place] [address] 37895 Protein [Mass/Vol] 5.4 g/dL Low 6.0-8.0 [facility] Comment on above: Performed By: #### C BCA, BMP, 00843-2, 21710-7, 07740-5 #### [facility] ([id number]) [address] [place] [address] 21021 Sodium [Moles/Vol] 137 mmol/L Normal 134-146 [facility] Comment on above: Performed By: #### C BCA, BMP, 95007-5, 89486-4, 77509-1 #### [facility] ([id number]) [address] [place] [address] 59037 Urea nitrogen [Mass/Vol] 23 mg/dL Normal 5-23 [facility] Comment on above: Performed By: #### C BCA, BMP, 96641-0, 72067-3, 62689-3 #### [facility] ([id number]) [address] [place] [address] 91301 Calcium.ionized (Bld) [Moles /Vol]on 10-16-2023 PORTABLE ICA 4.6 mg/dL Normal 4.5-5.3 [facility] Comment on above: Performed By: #### C BCA, BMP, 90180-3, 42025-1, 72536-8 #### [facility] ([id number]) [address] [place] [address] 84083 Clinical Pathologyon 024 Clinical Pathology Normal [facility] Comment on above: Result Comment: [facility] [address] [place] [address] Clinical Pathology Report Patient Name:DANIELLE MONTANA:1965 (Age: 58)Gender:FTaken:4Reported:4Physician(s):Irving Flores MD ([phone])Copy To: Rec. 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 No monoclonal protein identified. Report Electronically Signed Out df/4Dnicci Gomez MD Interpretation performed at [facility], [address] [place] [address], License number: [id number]. Clinical History D17.9, I16.0, E87.6. URINE PROTEIN ELECTROPHORESIS SAMPLE NUMBER: [id number] RELATIVE ELECTROPHORETIC CONCENTRATIONS (%) ? 100.0 Urine Protein 1410 mg/L (Electrophoretic gels and densitometric tracings on file in lab.) Specimen(s) Received Urine Protein Electrophoresis Fee Codes(s): 1; 95390-35 Fibrin D-dimer DDU (PPP) [Ma ss/Vol]on 10-16-2023 D DIMER 499 ng/mL DDU High <255 [facility] Comment on above: Result Comment: [...] the D-Dimer level. Performed By: #### C BCA, BMP, 90861-3, 24613-7, 15085-8 #### [facility] ([id number]) [address] [place] [address], [place] [address] HGB A1C (GLYCO-HGB)on 2023 Glucose [Mass/Vol] 111 mg/dL Normal [facility] Comment on above: Performed By: #### C BCA, BMP, 95560-3, 83965-2, 15315-8 #### [facility] ([id number]) [address] [place] [address] 63543 HbA1c (Bld) [Mass fraction] 5.5 % Normal 4.4-5.6 [facility] Comment on above: Result Comment: NOTE ADA Guidelines Result HgbA1c Normal : less than 5.7 % Prediabetes : 5.7 % to 6.4 % Diabetes : > 6.4 % Use with caution in patients with abnormal hemoglobin variants as the half-life of red blood cells and in vivo glycation rates are affected. Performed By: #### C MARIO POOLE, , 22186-1, 53866-7 #### [facility] ([id number]) [address] [place] [address] 63717 MAGNESIUMon 10-16-2023 Magnesium [Mass/Vol] 2.1 mg/dL Normal 1.8-2.6 [facility] Comment on above: Performed By: #### C VIRGILIO BMP, , 17729-4, 25093-6 #### [facility] ([id number]) [address] [place] [address] 80448 MICROALBUMIN - ALBUMIN:CREAT ININE URINE RATIOon 10-16-2023 ALB/CREAT RATIO 3392.0 mg/g creat High 0.0-30.0 [facility] Comment on above: Performed By: #### C BCA, BMP, , 48453-4, 83666-8 #### [facility] ([id number]) [address] [place] [address] 90493 Albumin DL <= 20 mg/L (U) [Mass/Vol] 88.6 mg/dL High 0.0-1.9 [facility] Comment on above: Performed By: #### C BCA, BMP, , 35365-7, 48134-8 #### [facility] ([id number]) [address] [place] [address] 52370 URINE CREAT 26.12 mg/dL Normal [facility] Comment on above: Performed By: #### C BCA, BMP, 62700-4, 77176-8, 65965-9 #### [facility] ([id number]) [address] [place] [address] 14263 PHOSPHORUSon 10-16-2023 Phosphate [Mass/Vol] 4.3 mg/dL Normal 2.4-4.9 [facility] Comment on above: Performed By: #### C BCA, BMP, 57099-4, 60119-5, 10677-0 #### [facility] ([id number]) [address] [place] [address] 50297 POTASSIUMon 10-16-2023 Potassium [Moles/Vol] 4.8 mmol/L Normal 3.5-5.0 [facility] Comment on above: Result Comment: SPEC IMEN HEMOLYZED, RESULTS INCREASED Performed By: #### C BCA, BMP, 78361-0, 58152-7, 54753-8 #### [facility] ([id number]) [address] [place] [address] 27000 PROTEIN CREAT RATIOon 2023 RANDOM URINE PROTEIN 1270 mg/L High <120 [facility] Comment on above: Performed By: #### C BCA, BMP, 43900-3, 24599-0, 94187-7 #### [facility] ([id number]) [address] [place] [address] 41762 U/PRO/DIRECTOR OF PSYCHOLOGY RATIO CALC 4.72 High <0.2 [facility] Comment on above: Result Comment: Neph rotic Syndrome is associated with ratios >3.5 Performed By: #### C BCA, BMP, 07216-9, 15832-2, 89409-4 #### [facility] ([id number]) [address] [place] [address] 22489 URINE CREATININE,RDM 26.92 mg/dL Normal [facility] Comment on above: Performed By: #### C BCA, BMP, 66104-1, 94744-7, 34764-3 #### [facility] ([id number]) [address] [place] [address] 35145 URINALYSISon 10-16-2023 Bilirubin Ql (U) Negative Normal [facility] Comment on above: Performed By: #### C BCA, BMP, 78230-0, 23789-4, 21251-8 #### [facility] ([id number]) [address] [place] [address] 88081 BLOOD/HGB Large Abnormal NEG [facility] Comment on above: Performed By: #### C BCA, BMP, 49197-6, 32822-7, 45652-0 #### [facility] ([id number]) [address] [place] [address] [place] [address] Color (U) YELLOW Normal YELLOW [facility] Comment on above: Performed By: #### C BCA, BMP, 85674-4, 75974-2, 11129-3 #### [facility] ([id number]) [address] [place] [address] 75010 Glucose Ql (U) Negative Normal NEG [facility] Comment on above: Performed By: #### C BCA, BMP, 06202-6, 75307-6, 32915-4 #### [facility] ([id number]) [address] [place] [address] 91209 Ketones Ql (U) Negative Normal NEG [facility] Comment on above: Performed By: #### C BCA, BMP, 25409-6, 38121-5, 72175-8 #### [facility] ([id number]) [address] [place] [address] 92129 Leukocyte esterase Test strip Ql (U) Negative Normal NEG [facility] Comment on above: Performed By: #### C VIRGILIO, BMP, 68864-6, 27176-0, 38080-9 #### [facility] ([id number]) [address] [place] [address] 74407 Nitrite Ql (U) Negative Normal NEG [facility] Comment on above: Performed By: #### Shahla BCA, BMP, 56906-2, 78441-0, 12773-2 #### [facility] ([id number]) [address] [place] [address] 49331 pH (U) 6.0 [pH] Normal 5.0-8.5 [facility] Comment on above: Performed By: #### Shahla POOLE, BMP, 71592-2, 10827-9, 02074-4 #### [facility] ([id number]) [address] [place] [address] 14448 Protein Ql (U) 100 mg/dL Abnormal NEG [facility] Comment on above: Performed By: #### C VIRGILIO, BMP, , 45826-6, 02147-4 #### [facility] ([id number]) [address] [place] [address] 58821 R.B.CELLS 80 /hpf High 0-5 [facility] Comment on above: Performed By: #### C VIRGILIO, BMP, 62042-0, 71424-8, 26742-9 #### [facility] ([id number]) [address] [place] [address] 91791 Specific gravity (U) [Rel density] 1.015 Normal 1.003-1.035 [facility] Comment on above: Performed By: #### C VIRGILIO, BMP, 12385-7, 50627-0, 67509-3 #### [facility] ([id number]) [address] [place] [address] 68206 SQUAMOUS EPITHELIUM 2 /hpf Normal 0-5 [facility] Comment on above: Performed By: #### C VIRGILIO, BMP, , 14730-2, 04410-3 #### [facility] ([id number]) [address] [place] [address] 47753 TURBIDITY CLEAR Normal CLEAR [facility] Comment on above: Performed By: #### C VIRGILIO, BMP, , 45147-3, 98771-4 #### [facility] ([id number]) [address] [place] [address] 73293 Urobilinogen Qn (U) 0.2 {Micaela'U}/dL Normal <1.1 [facility] Comment on above: Performed By: #### C VIRGILIO, BMP, , 05856-9, 04933-3 #### [facility] ([id number]) [address] [place] [address] 83869 W.B.CELLS 5 /hpf Normal 0-5 [facility] Comment on above: Performed By: #### C VIRGILIO, BMP, , 91224-5, 94642-1 #### [facility] ([id number]) [address] [place] [address] 91547 URINE PROTEIN ELECTROPHORESI Son 10-15-2023 UPREL INTERP SEE SEPARATE REPORT Normal [facility] URINE VOLUME AND TIMEon 09-23 TIME 24 h Normal [facility] Comment on above: Performed By: #### U CR, UPRO ####[facility] ([id number])[address], [place] [address] TOTAL VOLUME 4400 mL Normal [facility] Comment on above: Performed By: #### U CR, UPRO ####[facility] ([id number])[address] [place] [address] US RETROPERITONEAL COMPLETEo n 10-16-2023 US RETROPERITONEAL [...] Unger MD on 10/16/2023 9:42 AM Normal [facility] Basement membrane IgG Qn (S) on 10-15-2023 Glomerular Base Memb IgG <0.2 Normal <1.0 (Negative) [facility] Comment on above: Result Comment: NOTE Test Performed by: [address] [place] [address] [employer]ing Press Operator Apprentice: Ledy Son Ph.D.; CLIA# [id number] Performed By: #### C VIRGILIO, BMP, 29548-4, 61215-6, 34787-6 #### [facility] ([id number]) [address] [place] [address] 79460 CBC AND AUTO DIFFon 10-15-19 ABSOLUTE BASOPHIL 0.1 X10E9/L Normal 0.0-0.2 [facility] Comment on above: Performed By: #### C VIRGILIO, CMP, 75098-0 #### [facility] ([id number]) [address] [place] [address] 02317 ABSOLUTE NEUTROPHIL 6.8 X10E9/L High 1.5-6.6 [facility] Comment on above: Performed By: #### C VIRGILIO [facility], 80191-1 #### [facility] ([id number]) [address] [place] [address] 03352 Basophils/100 WBC (Bld) 0.7 % Normal [facility] Comment on above: Performed By: #### C VIRGLIIO [facility], #### [facility] ([id number]) [address] [place] [address] 41789 Eosinophils (Bld) [#/Vol] 0.3 10*3/uL Normal 0.0-0.4 [facility] Comment on above: Performed By: #### Shahla POOLE [facility], #### [facility] ([id number]) [address] [place] [address] 84036 Eosinophils/100 WBC (Bld) 3.3 % Normal [facility] Comment on above: Performed By: #### Shahla POOLE [facility], #### [facility] ([id number]) [address] [place] [address] 43221 Erythrocyte distribution width (RBC) [Ratio] 14.6 % Normal 11.5-15.0 [facility] Comment on above: Performed By: #### Shahla POOLE [facility], #### [facility] ([id number]) [address] [place] [address] 47678 Hematocrit (Bld) [Volume fraction] 30.1 % Low 35-47 [facility] Comment on above: Performed By: #### Shahla POOLE [facility], #### [facility] ([id number]) [address] [place] [address] 46063 Hemoglobin (Bld) [Mass/Vol] 10.0 g/dL Low 11.7-15.5 [facility] Comment on above: Performed By: #### Shahla POOLE CMP, #### [facility] ([id number]) [address] [place] [address] 35123 Lymphocytes (Bld) [#/Vol] 2.4 10*3/uL Normal 1.0-3.5 [facility] Comment on above: Performed By: #### Shahla POOLE CMP, #### [facility] ([id number]) [address] [place] [address] 29106 Lymphocytes/100 WBC (Bld) 23.7 % Normal [facility] Comment on above: Performed By: #### Shahla POOLE [facility], #### [facility] ([id number]) [address] [place] [address] 69343 MCH (RBC) [Entitic mass] 27.7 pg Normal 27-34 [facility] Comment on above: Performed By: #### Shahla POOLE [facility], #### [facility] ([id number]) [address] [place] [address] 56556 MCHC (RBC) [Mass/Vol] 33.1 g/dL Normal 32-36 [facility] Comment on above: Performed By: #### Shahla POOLE [facility], #### [facility] ([id number]) [address] [place] [address] 75824 MCV (RBC) [Entitic vol] 84 fL Normal 80-100 [facility] Comment on above: Performed By: #### Shahla POOLE [facility], #### [facility] ([id number]) [address] [place] [address] 75885 Monocytes (Bld) [#/Vol] 0.6 10*3/uL Normal 0-0.9 [facility] Comment on above: Performed By: #### Shahla POOLE CMP, #### [facility] ([id number]) [address] [place] [address], [place] [address] Monocytes/100 WBC (Bld) 5.5 % Normal [facility] Comment on above: Performed By: #### Shahla POOLE CMP, 56648-7 #### [facility] ([id number]) [address] [place] [address] 29155 Neutrophils/100 WBC (Bld) 66.8 % Normal [facility] Comment on above: Performed By: #### Shahla POOLE CMP, 10708-9 #### [facility] ([id number]) [address] [place] [address] 38259 Platelet mean volume (Bld) [Entitic vol] 9.0 fL Normal 7-12 [facility] Comment on above: Performed By: #### Shahla POOLE CMP, 82496-7 #### [facility] ([id number]) [address] [place] [address] 04305 Platelets (Bld) [#/Vol] 312 10*3/uL Normal 150-450 [facility] Comment on above: Performed By: #### Shahla POOLE CMP, 06148-5 #### [facility] ([id number]) [address] [place] [address] 04409 RBC COUNT 3.59 X10E12/L Low 3.80-5.20 [facility] Comment on above: Performed By: #### Shahla POOLE CMP, #### [facility] ([id number]) [address] [place] [address] 30875 WBC (Bld) [#/Vol] 10.2 10*3/uL Normal 4.0-11.0 [facility] Comment on above: Performed By: #### Shahla POOLE CMP, 41287-3 #### [facility] ([id number]) [address] [place] [address] 33638 CK [Catalytic activity/Vol]o n 06-23-2024 CPK 82 U/L Normal 24-170 [facility] Comment on above: Performed By: #### C BCA, BMP, 13828-1, 07912-2, 73034-2 #### [facility] ([id number]) [address] [place] [address] 70328 COMPLEMENT PROFILEon 024 COMPLEMENT C3 113 mg/dL Normal 86-184 [facility] Comment on above: Performed By: #### C BCA, BMP, 49708-6, 08854-6, 62309-2 #### [facility] ([id number]) [address] [place] [address] 14826 COMPLEMENT C4 36 mg/dL Normal 16-47 [facility] Comment on above: Performed By: #### C BCA, BMP, 41428-5, 38850-1, 69619-7 #### [facility] ([id number]) [address] [place] [address] 47224 [address] METABOLIC PANE [facility] 10-15-2023 Albumin [Mass/Vol] 2.8 g/dL Low 3.2-5.3 [facility] Comment on above: Performed By: #### C BCA, CMP, #### [facility] ([id number]) [address] [place] [address] 06217 ALP [Catalytic activity/Vol] 61 U/L Normal 39-130 [facility] Comment on above: Performed By: #### C BCA, CMP, #### [facility] ([id number]) [address] [place] [address] 59782 ALT [Catalytic activity/Vol] 10 U/L Normal 0-31 [facility] Comment on above: Performed By: #### C BCA, CMP, #### [facility] ([id number]) [address] [place] [address] 39586 Anion gap [Moles/Vol] 10 mmol/L Normal 5-15 [facility] Comment on above: Performed By: #### C BCA, CMP, 53878-0 #### [facility] ([id number]) [address] [place] [address] 43380 AST [Catalytic activity/Vol] 14 U/L Normal 0-41 [facility] Comment on above: Performed By: #### C BCA, CMP, 44002-2 #### [facility] ([id number]) [address] [place] [address] 55618 Bilirubin [Mass/Vol] 0.4 mg/dL Normal 0.3-1.2 [facility] Comment on above: Performed By: #### C BCA, CMP, 26212-7 #### [facility] ([id number]) [address] [place] [address] 93747 Calcium [Mass/Vol] 8.4 mg/dL Low 8.5-10.5 [facility] Comment on above: Performed By: #### C BCA, CMP, 78204-6 #### [facility] ([id number]) [address] [place] [address] 67481 Chloride [Moles/Vol] 104 mmol/L Normal 98-109 [facility] Comment on above: Performed By: #### C BCA, CMP, 66882-1 #### [facility] ([id number]) [address] [place] [address] 51725 CO2 [Moles/Vol] 26 mmol/L Normal 22-32 [facility] Comment on above: Performed By: #### C BCA, CMP, 11979-4 #### [facility] ([id number]) [address] [place] [address] 27312 Creatinine [Mass/Vol] 2.56 mg/dL High 0.40-1.00 [facility] Comment on above: Result Comment: METH OD TRACEABLE TO IDMS STANDARD Performed By: #### C BCA, CMP, 50338-4 #### [facility] ([id number]) [address] [place] [address] 28530 GFR/1.73 sq M.predicted among non-blacks MDRD (S/P/Bld) [Vol rate/Area] 21 mL/min/{1.73_m2} Low >59 [facility] Comment on above: Result Comment: Reported eGFR is based on the CKD-EPI 2020 equation that does not use a race coefficient. Performed By: #### C VIRGILIO [facility], #### [facility] ([id number]) [address] [place] [address] 13533 Glucose [Mass/Vol] 103 mg/dL High 65-99 [facility] Comment on above: Performed By: #### Shahla POOLE [facility], 98152-2 #### [facility] ([id number]) [address] [place] [address] 82598 Potassium [Moles/Vol] 3.2 mmol/L Low 3.5-5.0 [facility] Comment on above: Performed By: #### C VIRGILIO [facility], 53239-3 #### [facility] ([id number]) [address] [place] [address] 30352 Protein [Mass/Vol] 5.6 g/dL Low 6.0-8.0 [facility] Comment on above: Performed By: #### Shahla POOLE [facility], 35542-5 #### [facility] ([id number]) [address] [place] [address] 11293 Sodium [Moles/Vol] 140 mmol/L Normal 134-146 [facility] Comment on above: Performed By: #### Shahla POOLE [facility], 53193-3 #### [facility] ([id number]) [address] [place] [address] 39560 Urea nitrogen [Mass/Vol] 20 mg/dL Normal 5-23 [facility] Comment on above: Performed By: #### C BCA, CMP, #### [facility] ([id number]) [address] [place] [address] 87073 CRYOGLOBULIN WITH IDon 10-14 CRYOGLOBULIN, QUAL NEG 72HOUR Normal NEG 72Hour [facility] Comment on above: Result Comment: NOTE This test was developed and its performance characteristics determined by [email or web address]. It has not been cleared or approved by the US Food and Drug Administration. This test was performed in a CLIA certified laboratory and is intended for clinical purposes. Performed By: [email or web address] [address] [place] [address] 22947 Drip Molder: Hank Armstrong MD, PhD CLIA Number: [id number] Performed By: #### 8 9579-7 #### [facility] ([id number]) [address] [place] [address] 59299 Creatinine (U) [Mass/Vol]on 10-15-2023 URINE CREATININE,RDM 102.61 mg/dL Normal Pr [facility] Comment on above: Performed By: #### C BCA, BMP, , 82949-2, 73544-8 #### [facility] ([id number]) [address] [place] [address] 96581 FERRITINon 10-15-2023 Ferritin [Mass/Vol] 45 ng/mL Normal 11-307 [facility] Comment on above: Performed By: #### C BCA, BMP, 21323-0, 99627-7, 91669-9 #### [facility] ([id number]) [address] [place] [address] 03158 FREE LIGHT CHAINSon 10-15-19 24 FREE ANDREA/LAMBD RATIO 0.94 Normal 0.26-1.65 [facility] Comment on above: Performed By: #### C BCA, BMP, 92640-1, 29759-4, 18689-0 #### [facility] ([id number]) [address] [place] [address] 32526 FREE KAPPA LT CHAINS 3.52 mg/dL High 0.33-1.94 [facility] Comment on above: Performed By: #### C VIRGILIO, BMP, 55339-9, 84546-2, 28346-1 #### [facility] ([id number]) [address] [place] [address] 44820 FREE LAMBDA LT CHAINS 3.75 mg/dL High 0.57-2.63 [facility] Comment on above: Performed By: #### C VIRGILIO, BMP, 56715-6, 15775-8, 06004-0 #### [facility] ([id number]) [address] [place] [address] 10089 Folate [Mass/Vol]on 10-15-19 24 FOLIC ACID 10.3 ng/mL Normal >5.8 [facility] Comment on above: Result Comment: NEW REFERENCE RANGE Performed By: #### C VIRGILIO, BMP, , 36373-7, 31395-7 #### [facility] ([id number]) [address] [place] [address] 67556 HBV surface Ab IA Qnon 10-14 Anti HBs quant. <8.00 Normal [facility] Comment on above: Result Comment: Vacc inated: >=12mIU/mL, Positive (Immune) Unvaccinated: <8mIU/mL, Negative (Not Immune) 8-11.99 mIU/mL: Indeterminate, (Considered Not Immune) Performed By: #### C VIRGILIO, BMP, 00085-6, 42459-5, 60255-1 #### [facility] ([id number]) [address] [place] [address] 57501 HBV surface Ag IA Qlon 10-14 HEPATITIS B SURF AG Negative Normal NEG [facility] Comment on above: Performed By: #### Shahla POOLE, BMP, 18428-7, 54255-3, 78460-2 #### [facility] ([id number]) [address] [place] [address] 12331 HCV Ab IA Qlon 10-15-2023 ANTI HCV W/PCR REFLX Non-Reactive Normal NRCT Pr [facility] Comment on above: Result Comment: If recent infection suspected, recommend repeat testing (>2 months). Ilujwm-wz-sjmpvx ratio is <0.80. Performed By: #### C MARIO POOLE, 68126-4, 24433-9, 86401-8 #### [facility] ([id number]) [address] [place] [address] 72877 HIV 1+2 Ab+HIV1 p24 Ag IA Ql on 10-15-2023 HIV 1 and 2 Ab/Ag Screen Non-Reactive Normal NRCT [facility] Comment on above: Result Comment: [...] results or diagnoses. Performed By: #### C MARIO POOLE, 75953-4, 40869-8, 18812-3 #### [facility] ([id number]) [address] [place] [address] 40958 IRON PROFILEon 10-15-2023 Iron [Mass/Vol] 30 ug/dL Low 50-170 [facility] Comment on above: Performed By: #### C MARIO POOLE, 68272-1, 73043-8, 82102-6 #### [facility] ([id number]) [address] [place] [address] 25667 IRON BINDING 218 ug/dL Low 250-425 [facility] Comment on above: Performed By: #### C VIRGILIO, BMP, , 67230-5, 08775-8 #### [facility] ([id number]) [address] [place] [address] 42058 IRON SATURATION 14 % SATURATION Low 15-50 [facility] Comment on above: Performed By: #### C BCA, BMP, , 88205-9, 20040-6 #### [facility] ([id number]) [address] [place] [address] 84990 MAGNESIUMon 10-15-2023 Magnesium [Mass/Vol] 1.7 mg/dL Low 1.8-2.6 [facility] Comment on above: Performed By: #### C VIRGILIO, CMP, #### [facility] ([id number]) [address] [place] [address] 43696 Myeloperoxidase IgG Qn (S)on 10-15-2023 Myeloperoxidase IgG >8.0 High <0.4 (Negative) [facility] Comment on above: Result Comment: NOTE Interpretation: Positive (>=1.0) Test Performed by: [place] [address] Printing Press Operator Apprentice: Ledy Son Ph.D.; CLIA# [id number] Performed By: #### C VIRGILIO, BMP, , 79584-3, 03094-4 #### [facility] ([id number]) [address] [place] [address] 62675 Nuclear Ab IA Ql (S)on 10-14 SAUL Screen w/reflex Negative Normal NEG [facility] Comment on above: Result Comment: Testing performed using multiplex flow immunoassay. Eleven different antigens associated with systemic autoimmune diseases (dsDNA,Sm,Sm/DATABASE PROGRAMMER ANALYST,DATABASE PROGRAMMER ANALYST,Chromatin, SSA,SSB,Yoly-1,Scl70,Ribo P,Centromere B) are included in this screening test. Performed By: #### C BCA, BMP, , 73739-6, 77231-9 #### [facility] ([id number]) [address] [place] [address] 66977 POTASSIUMon 10-15-2023 Potassium [Moles/Vol] 3.5 mmol/L Normal 3.5-5.0 [facility] Comment on above: Performed By: #### C VIRGILIO, BMP, , 98221-0, 70055-7 #### [facility] ([id number]) [address] [place] [address] 27730 Proteinase 3 IgG IA Qnon Proteinase 3 IgG 0.2 U Normal <0.4 (Negative) [facility] Comment on above: Result Comment: NOTE Test Performed by: [facility] [address] [place] [address] Printing Press Operator Apprentice: Ledy Son Ph.D.; CLIA# [id number] Performed By: #### C VIRGILIO, BMP, , 42676-6, 96425-4 #### [facility] ([id number]) [address] [place] [address] 37391 Rheumatoid factor Nephelomet ry Qn (S)on 10-15-2023 RHEUMATOID FACTOR 76 IU/mL High <20 [facility] Comment on above: Performed By: #### C VIRGILIO, BMP, , 41132-5, 63730-4 #### [facility] ([id number]) [address] [place] [address] 66165 SERUM PROTEIN ELECTROPHORESI Son 10-15-2023 Albumin [Mass/Vol] 2.5 g/dL Low 3.4-5.3 [facility] Comment on above: Performed By: #### C VIRGILIO, BMP, , 30561-5, 01598-7 #### [facility] ([id number]) [address] [place] [address] 31533 ALPHA 1 GLOBULIN 0.4 g/dL Normal 0.1-0.4 [facility] Comment on above: Performed By: #### C BCA, BMP, 04188-6, 54901-0, 30374-6 #### [facility] ([id number]) [address] [place] [address] 03003 ALPHA 2 GLOBULIN 0.9 g/dL Normal 0.4-1.1 [facility] Comment on above: Performed By: #### C BCA, BMP, 85822-7, 88251-7, 09895-6 #### [facility] ([id number]) [address] [place] [address] 62427 BETA GLOBULIN 0.5 g/dL Normal 0.5-1.2 [facility] Comment on above: Performed By: #### C BCA, BMP, 77561-0, 76061-7, 42877-8 #### [facility] ([id number]) [address] [place] [address] 44801 GAMMA GLOBULIN 0.4 g/dL Low 0.5-1.6 [facility] Comment on above: Performed By: #### C BCA, BMP, 29047-4, 34117-9, 23838-5 #### [facility] ([id number]) [address] [place] [address] 07666 PROT. ELECTROPHORESIS INTERP Unremarkable protein distribution, no monoclonal bands. Normal [facility] Comment on above: Performed By: #### C BCA, BMP, 64815-9, 45181-5, 01937-7 #### [facility] ([id number]) [address] [place] [address] 46124 Protein [Mass/Vol] 4.7 g/dL Low 6.0-8.0 [facility] Comment on above: Performed By: #### C BCA, BMP, 73778-3, 35602-5, 47288-3 #### [facility] ([id number]) [address] [place] [address], [place] [address] URINALYSISon 10-15-2023 Bilirubin Ql (U) Negative Normal NEG [facility] Comment on above: Performed By: #### C VIRGILIO, BMP, 21648-9, 78726-7, 92569-6 #### [facility] ([id number]) [address] [place] [address] 86433 BLOOD/HGB Large Abnormal NEG [facility] Comment on above: Performed By: #### C VIRGILIO, BMP, 93397-1, 10772-0, 36768-0 #### [facility] ([id number]) [address] [place] [address] 25642 Color (U) YELLOW Normal YELLOW [facility] Comment on above: Performed By: #### C VIRGILIO, BMP, 95314-1, 75828-0, 79370-6 #### [facility] ([id number]) [address] [place] [address] 08652 Glucose Ql (U) Negative Normal NEG [facility] Comment on above: Performed By: #### C VIRGILIO, BMP, 43951-2, 43193-0, 52991-5 #### [facility] ([id number]) [address] [place] [address] 21976 Ketones Ql (U) Negative Normal NEG [facility] Comment on above: Performed By: #### C VIRGILIO, BMP, 44690-5, 14864-5, 68599-6 #### [facility] ([id number]) [address] [place] [address] 88145 Leukocyte esterase Test strip Ql (U) Negative Normal NEG [facility] Comment on above: Performed By: #### C VIRGILIO, BMP, 03150-5, 55294-6, 01836-5 #### [facility] ([id number]) [address] [place] [address] 70914 Nitrite Ql (U) Negative Normal NEG [facility] Comment on above: Performed By: #### C VIRGILIO, BMP, 56555-8, 07776-8, 02110-2 #### [facility] ([id number]) [address] [place] [address] 17272 pH (U) 6.0 [pH] Normal 5.0-8.5 [facility] Comment on above: Performed By: #### C BCA, BMP, 95150-2, 90193-5, 31946-4 #### [facility] ([id number]) [address] [place] [address] 82145 Protein Ql (U) >300 Abnormal NEG [facility] Comment on above: Performed By: #### C VIRGILIO, BMP, 23883-2, 41816-6, 34621-7 #### [facility] ([id number]) [address] [place] [address] 03906 R.B.CELLS 30 /hpf High 0-5 [facility] Comment on above: Performed By: #### C VIRGILIO, BMP, , 44456-7, 82188-6 #### [facility] ([id number]) [address] [place] [address] 45056 Specific gravity (U) [Rel density] 1.025 Normal 1.003-1.035 [facility] Comment on above: Performed By: #### C VIRGILIO, BMP, 05957-7, 94306-6, 56136-2 #### [facility] ([id number]) [address] [place] [address] 82865 SQUAMOUS EPITHELIUM 6 /hpf High 0-5 [facility] Comment on above: Performed By: #### C BCA, BMP, 98906-3, 46176-2, 11161-3 #### [facility] ([id number]) [address] [place] [address] 22325 TURBIDITY CLEAR Normal CLEAR [facility] Comment on above: Performed By: #### C BCA, BMP, , 71073-0, 18171-9 #### [facility] ([id number]) [address] [place] [address] 56185 Urobilinogen Qn (U) 0.2 {Micaela'U}/dL Normal <1.1 [facility] Comment on above: Performed By: #### C BCA, BMP, , 22391-4, 64451-0 #### [facility] ([id number]) [address] [place] [address] 41046 W.B.CELLS 10 /hpf High 0-5 [facility] Comment on above: Performed By: #### C VIRGILIO, BMP, , 31953-0, 94766-9 #### [facility] ([id number]) [address] [place] [address] 99632 URINE SODIUM,RANDOMon 2023 Sodium (U) [Moles/Vol] 86 mmol/L Normal [facility] Comment on above: Performed By: #### C VIRGILIO, BMP, , 40209-0, 04353-2 #### [facility] ([id number]) [address] [place] [address] 27571 VITAMIN B12on 10-15-2023 Cobalamin (Vitamin B12) [Mass/Vol] 159 pg/mL Low 180-914 [facility] Comment on above: Performed By: #### C BCA, BMP, , 01820-5, 42258-5 #### [facility] ([id number]) [address] [place] [address] 51462 BASIC METABOLIC PANLon 10-13 Anion gap [Moles/Vol] 5 mmol/L Normal 5-15 [facility] Comment on above: Performed By: #### C BCA, BMP, , 79852-9, 11699-3 #### [facility] ([id number]) [address] [place] [address] 87214 Calcium [Mass/Vol] 8.1 mg/dL Low 8.5-10.5 [facility] Comment on above: Performed By: #### C BCA, BMP, 44097-1, 84842-9, 96366-2 #### [facility] ([id number]) [address] [place] [address] 24386 Chloride [Moles/Vol] 107 mmol/L Normal 98-109 [facility] Comment on above: Performed By: #### C BCA, BMP, 21152-3, 74763-1, 31405-1 #### [facility] ([id number]) [address] [place] [address] 36268 CO2 [Moles/Vol] 27 mmol/L Normal 22-32 [facility] Comment on above: Performed By: #### C BCA, BMP, 40575-1, 10644-2, 26935-9 #### [facility] ([id number]) [address] [place] [address] 22545 Creatinine [Mass/Vol] 2.56 mg/dL High 0.40-1.00 [facility] Comment on above: Result Comment: METH OD TRACEABLE TO IDMS STANDARD Performed By: #### C BCA, BMP, 63231-3, 05880-0, 25137-2 #### [facility] ([id number]) [address] [place] [address] 50718 GFR/1.73 sq M.predicted among non-blacks MDRD (S/P/Bld) [Vol rate/Area] 21 mL/min/{1.73_m2} Low >59 [facility] Comment on above: Result Comment: Reported eGFR is based on the CKD-EPI 2020 equation that does not use a race coefficient. Performed By: #### C BCA, BMP, 98133-5, 97608-4, 78230-0 #### [facility] ([id number]) [address] [place] [address] 21830 Glucose [Mass/Vol] 95 mg/dL Normal 65-99 [facility] Comment on above: Performed By: #### C BCA, BMP, 63559-3, 87906-0, 82595-3 #### [facility] ([id number]) [address] [place] [address] 60283 Potassium [Moles/Vol] 3.1 mmol/L Low 3.5-5.0 [facility] Comment on above: Performed By: #### C BCA, BMP, 76739-0, 16102-3, 55383-3 #### [facility] ([id number]) [address] [place] [address] 58568 Sodium [Moles/Vol] 139 mmol/L Normal 134-146 [facility] Comment on above: Performed By: #### C VIRGILIO, BMP, , 54882-0, 42927-3 #### [facility] ([id number]) [address] [place] [address] 91703 Urea nitrogen [Mass/Vol] 19 mg/dL Normal 5-23 [facility] Comment on above: Performed By: #### C BCA, BMP, , 69563-9, 23965-5 #### [facility] ([id number]) [address] [place] [address] 48319 CBC AND AUTO DIFFon 10-14-19 24 ABSOLUTE BASOPHIL 0.1 X10E9/L Normal 0.0-0.2 [facility] Comment on above: Performed By: #### C BCA, BMP, 11813-8, 63238-7, 00774-5 #### [facility] ([id number]) [address] [place] [address] 87117 ABSOLUTE NEUTROPHIL 5.7 X10E9/L Normal 1.5-6.6 [facility] Comment on above: Performed By: #### C VIRGILIO, BMP, , 78263-3, 92258-3 #### [facility] ([id number]) [address] [place] [address] 65619 Basophils/100 WBC (Bld) 0.7 % Normal [facility] Comment on above: Performed By: #### C BCA, BMP, 31295-8, 40336-8, 40717-3 #### [facility] ([id number]) [address] [place] [address] 87342 Eosinophils (Bld) [#/Vol] 0.5 10*3/uL High 0.0-0.4 [facility] Comment on above: Performed By: #### C VIRGILIO, BMP, , 11535-0, 76664-5 #### [facility] ([id number]) [address] [place] [address] 02173 Eosinophils/100 WBC (Bld) 4.9 % Normal [facility] Comment on above: Performed By: #### C BCA, BMP, , 73285-5, 18222-4 #### [facility] ([id number]) [address] [place] [address] 56319 Erythrocyte distribution width (RBC) [Ratio] 14.6 % Normal 11.5-15.0 [facility] Comment on above: Performed By: #### C BCA, BMP, 62027-3, 18503-3, 75070-9 #### [facility] ([id number]) [address] [place] [address] 79987 Hematocrit (Bld) [Volume fraction] 33.2 % Low 35-47 [facility] Comment on above: Performed By: #### C BCA, BMP, 65127-8, 26766-5, 62904-3 #### [facility] ([id number]) [address] [place] [address] 66946 Hemoglobin (Bld) [Mass/Vol] 10.9 g/dL Low 11.7-15.5 [facility] Comment on above: Performed By: #### C VIRGILIO, MARIO, , 31448-9, 91033-7 #### [facility] ([id number]) [address] [place] [address] 83489 Lymphocytes (Bld) [#/Vol] 2.8 10*3/uL Normal 1.0-3.5 [facility] Comment on above: Performed By: #### C VIRGILIO, BMP, , 48021-7, 58948-0 #### [facility] ([id number]) [address] [place] [address] 53089 Lymphocytes/100 WBC (Bld) 28.7 % Normal [facility] Comment on above: Performed By: #### C VIRGILIO, MARIO, , 41484-2, 91098-4 #### [facility] ([id number]) [address] [place] [address] 76243 MCH (RBC) [Entitic mass] 27.7 pg Normal 27-34 [facility] Comment on above: Performed By: #### Shahla POOLE, BMP, , 94825-0, 30705-0 #### [facility] ([id number]) [address] [place] [address] 97872 MCHC (RBC) [Mass/Vol] 32.9 g/dL Normal 32-36 [facility] Comment on above: Performed By: #### Shahla POOLE, BMP, , 05742-8, 94458-9 #### [facility] ([id number]) [address] [place] [address] 97095 MCV (RBC) [Entitic vol] 84 fL Normal 80-100 [facility] Comment on above: Performed By: #### C BCA, BMP, 18593-3, 59997-4, 00971-0 #### [facility] ([id number]) [address] [place] [address] 30427 Monocytes (Bld) [#/Vol] 0.8 10*3/uL Normal 0-0.9 [facility] Comment on above: Performed By: #### C BCA, BMP, 53256-7, 60576-9, 38393-8 #### [facility] ([id number]) [address] [place] [address] 40721 Monocytes/100 WBC (Bld) 8.1 % Normal [facility] Comment on above: Performed By: #### Shahla BCA, BMP, 53169-8, 20137-9, 58914-4 #### [facility] ([id number]) [address] [place] [address] 56311 Neutrophils/100 WBC (Bld) 57.6 % Normal [facility] Comment on above: Performed By: #### Shahla BCA, BMP, 45837-5, 73041-7, 79031-5 #### [facility] ([id number]) [address] [place] [address] 21497 Platelet mean volume (Bld) [Entitic vol] 8.9 fL Normal 7-12 [facility] Comment on above: Performed By: #### Shahla BCA, BMP, 06970-2, 27975-8, 75022-2 #### [facility] ([id number]) [address] [place] [address] 74808 Platelets (Bld) [#/Vol] 319 10*3/uL Normal 150-450 [facility] Comment on above: Performed By: #### Shahla BCA, BMP, 72807-4, 63348-8, 26547-3 #### [facility] ([id number]) [address] [place] [address] 69761 RBC COUNT 3.95 X10E12/L Normal 3.80-5.20 [facility] Comment on above: Performed By: #### C VIRGILIO, BMP, 38313-6, 85708-6, 29483-0 #### [facility] ([id number]) [address] [place] [address] 68798 WBC (Bld) [#/Vol] 9.9 10*3/uL Normal 4.0-11.0 [facility] Comment on above: Performed By: #### C VIRGILIO, BMP, 50391-4, 56555-4, 74572-4 #### [facility] ([id number]) [address] [place] [address] 29871 MAGNESIUMon 10-14-2023 Magnesium [Mass/Vol] 1.8 mg/dL Normal 1.8-2.6 [facility] Comment on above: Performed By: #### C VIRGILIO, BMP, 23013-7, 23564-4, 41996-6 #### [facility] ([id number]) [address] [place] [address] 76514 Natriuretic peptide B [Mass/ Vol]on 10-14-2023 Natriuretic peptide B (Bld) [Mass/Vol] 427 pg/mL High <100.0 [facility] Comment on above: Performed By: #### C BCA, BMP, 53159-6, 25721-6, 18975-9 #### [facility] ([id number]) [address] [place] [address] 93938 Troponin I.cardiac High sens itivity method [Mass/Vol]on 10-14-2023 1 HOUR TROP I, HIGH SENSITIVITY 39 ng/L High <16 [facility] Comment on above: Result Comment: Elevations of hs-Troponin may be due to causes other than myocardial ischemia. Recommend serial hs-Troponin testing be performed. For the initial evaluation and management of chest pain patients, refer to the algorithms linked below. Emergency Patient: [email or web address] Inpatient: [email or web address] Performed By: #### 8 9579-7 #### [facility] ([id number]) [address] [place] [address] 62988 TROPONIN I, HIGH SENSITIVITY 39 ng/L High <16 [facility] Comment on above: Result Comment: Elevations of hs-Troponin may be due to causes other than myocardial ischemia. Recommend serial hs-Troponin testing be performed. For the initial evaluation and management of chest pain patients, refer to the algorithms linked below. Emergency Patient: [email or web address] Inpatient: [email or web address] Performed By: #### C VIRGILIO, [facility], 91338-7, 50866-9, 52267-5 #### [facility] ([id number]) [address] [place] [id number] XR CHEST 1 VWon 10-14-2023 XR CHEST 1 VW XR CHEST 1 VW Single view chest History: Difficulty breathing, shortness of breath Comparison: 01/01/2021 Impression: 1. Low lung volumes and hypoventilatory change, Central pulmonary vascular congestion without overt pulmonary edema. No sizable pleural effusion, no definite pneumothorax. 2. Borderline cardiomegaly. Finalized by Naren Morris MD on 10/14/2023 11:39 PM Normal [facility] ANTIBODY ID PANELon 01-03-20 22 ANTIBODY ID PANEL Antibody ID Anti-Jka Normal [facility] Comment on above: Performed By: #### C MP, HSTROPN #### [facility] [address] [place] [address] Dr. Steve Valentin CBC AUTO DIFFon 12-31-2021 BASO # 0.0 103/ul Normal 0.0-0.1 [facility] Comment on above: Performed By: #### C MP, HSTROPN #### [facility] [address] [place] [address] Dr. Steve Valentin Basophils/100 WBC (Bld) 0.9 % Normal 0.2-2.0 [facility] Comment on above: Performed By: #### C MP, HSTROPN #### [facility] [address] [place] [address] Dr. Steve Valentin EO # 0.2 103/ul Normal 0.0-0.7 [facility] Comment on above: Performed By: #### C MP, HSTROPN #### [facility] [address] [place] [address] Dr. Steve Valentin Eosinophils/100 WBC (Bld) 4.3 % Normal 0.9-7.0 [facility] Comment on above: Performed By: #### C MP, HSTROPN #### [facility] [address] [place] [address] Dr. Steve Valentin Erythrocyte distribution width (RBC) [Ratio] 14.1 % Normal 11.0-15.0 [facility] Comment on above: Performed By: #### C MP, HSTROPN #### [facility] [address] [place] [address] Dr. Steve Valentin Hematocrit (Bld) [Volume fraction] 34.6 % Critically low 36.0-48.0 [facility] Comment on above: Performed By: #### C MP, HSTROPN #### [facility] [address] [place] [address] Dr. Steve Valentin Hemoglobin (Bld) [Mass/Vol] 10.9 g/dL Critically low 12.0-16.0 [facility] Comment on above: Performed By: #### C MP, HSTROPN #### [facility] 10 [place] [address] Dr. Steve Valentin IG # 0.01 10e3/ul Normal 0.00-0.03 [facility] Comment on above: Performed By: #### C MP, HSTROPN #### [facility] [address] [place] [address] Dr. Steve Valentin IG % 0.3 % Normal 0.0-0.5 [facility] Comment on above: Performed By: #### C MP, HSTROPN #### [facility] [address] [place] [address] Dr. Steve Valentin LYMPH # 0.9 103/ul Critically low 1.2-3.8 [facility] Comment on above: Performed By: #### C MP, HSTROPN #### [facility] [address] [place] [address] Dr. Steve Valentin Lymphocytes/100 WBC (Bld) 26.3 % Normal 20.5-60.0 [facility] Comment on above: Performed By: #### C MP, HSTROPN #### [facility] [address] [place] [address] Dr. Steve Valentin MANUAL DIFF REQ NO Normal [facility] Comment on above: Performed By: #### C MP, HSTROPN #### [facility] [address] [place] [address] Dr. Steve Valentin MCH (RBC) [Entitic mass] 26.7 pg Normal 26.7-34.0 [facility] Comment on above: Performed By: #### C MP, HSTROPN #### [facility] [address] [place] [address] Dr. Steve Valentin MCHC (RBC) [Mass/Vol] 31.5 g/dL Normal 29.9-35.2 [facility] Comment on above: Performed By: #### C MP, HSTROPN #### [facility] [address] [place] [address] Dr. Steve Valentin MCV (RBC) [Entitic vol] 84.8 fL Normal 81.0-99.0 [facility] Comment on above: Performed By: #### C MP, HSTROPN #### [facility] [address] [place] [address] Dr. Steve Valentin MONO # 0.3 103/ul Normal 0.3-0.8 [facility] Comment on above: Performed By: #### C MP, HSTROPN #### [facility] [address] [place] [address] Dr. Steve Valentin Monocytes/100 WBC (Bld) 9.5 % Normal 1.7-12.0 [facility] Comment on above: Performed By: #### C MP, HSTROPN #### [facility] [address] [place] [address] Dr. Steve Valentin NEUT # 2.0 103/ul Normal 1.4-6.5 [facility] Comment on above: Performed By: #### C MP, HSTROPN #### [facility] [address] [place] [address] Dr. Steve Valentin Neutrophils/100 WBC (Bld) 58.7 % Normal 43.0-75.0 [facility] Comment on above: Performed By: #### C TABBY, HSTROPN #### [facility] [address] [place] [address] Dr. Steve Valentin Platelet mean volume (Bld) [Entitic vol] 10.5 fL Normal 9.5-13.5 [facility] Comment on above: Performed By: #### C MP, HSTROPN #### [facility] [address] [place] [address] Dr. Steve Valentin PLT 164 103/ul Normal 150-450 [facility] Comment on above: Performed By: #### C MP, HSTROPN #### [facility] [address] [place] [address] Dr. Steve Valentin RBC 4.08 106/ul Critically low 4.20-5.[address] [facility] Comment on above: Performed By: #### C MP, HSTROPN #### [facility] [address] [place] [address] Dr. Steve Valentin WBC 3.5 103/ul Critically low 4.0-11.0 [facility] Comment on above: Performed By: #### C MP, HSTROPN #### [facility] [address] [place] [address] Dr. Steve Valentin PROF 14(COMP METB)on 022 Albumin [Mass/Vol] 3.0 g/dL Critically low 3.4-5.0 [facility] Comment on above: Performed By: #### C MP #### [facility] [address] [place] [address] Dr. Steve Valentin Albumin/Globulin [Mass ratio] 1.0 {ratio} Normal [facility] Comment on above: Performed By: #### C MP #### [facility] [address] [place] [address] Dr. Steve Valentin ALP [Catalytic activity/Vol] 56 U/L Normal 46-116 [facility] Comment on above: Performed By: #### C MP #### [facility] [address] [place] [address] Dr. Steve Valentin ALT [Catalytic activity/Vol] 20 U/L Normal 14-59 [facility] Comment on above: Performed By: #### C MP #### [facility] [address] [place] [address] Dr. Steve Valentin Anion gap [Moles/Vol] 9.3 mmol/L Normal [facility] Comment on above: Performed By: #### C MP #### [facility] [address] [place] [address] Dr. Steve Valentin AST [Catalytic activity/Vol] 17 U/L Normal 15-37 [facility] Comment on above: Performed By: #### C MP #### [facility] [address] [place] [address] Dr. Steve Valentin Bilirubin [Mass/Vol] 0.2 mg/dL Normal 0.2-1.0 [facility] Comment on above: Performed By: #### C MP #### [facility] [address] [place] [address] Dr. Steve Valentin Calcium [Mass/Vol] 8.8 mg/dL Normal 8.5-10.1 [facility] Comment on above: Performed By: #### C MP #### [facility] [address] [address] [address] Steve Valentin Chloride [Moles/Vol] 106 mmol/L Normal 98-107 [facility] Comment on above: Performed By: #### C MP #### [facility] [address] [address] [address] Steve Valentin CO2 [Moles/Vol] 26.5 mmol/L Normal 21.0-32.0 [facility] Comment on above: Performed By: #### C MP #### [facility] [address] [place] [address] Dr. Steve Valentin Creatinine [Mass/Vol] 0.92 mg/dL Normal 0.55-1.02 [facility] Comment on above: Performed By: #### C MP #### [facility] [address] [place] [address] Dr. Steve Valentin EGFR-AF SIERRA LEONEAN >60 Normal >=60 [facility] Comment on above: Performed By: #### C MP #### [facility] [address] [place] [address] Dr. Steve Valentin EGFR-NON AF SIERRA LEONEAN >60 Normal >=60 [facility] Comment on above: Performed By: #### C MP #### [facility] [address] [place] [address] Dr. Steve Valentin Globulin (S) [Mass/Vol] 2.9 g/dL Normal [facility] Comment on above: Performed By: #### C MP #### [facility] [address] [address] [address] Steve Valentin Glucose [Mass/Vol] 97 mg/dL Normal 74-106 [facility] Comment on above: Performed By: #### C MP #### [facility] [address] [place] [address] Dr. Steve Valentin Potassium [Moles/Vol] 3.8 mmol/L Normal 3.5-5.1 [facility] Comment on above: Performed By: #### C MP #### [facility] [address] [address] [address] Steve Valentin Protein [Mass/Vol] 5.9 g/dL Critically low 6.4-8.2 [facility] Comment on above: Performed By: #### C MP #### [facility] [address] [address] [address] Steve Valentin Sodium [Moles/Vol] 138 mmol/L Normal 136-145 [facility] Comment on above: Performed By: #### C MP #### [facility] [address] [address] [address] Steve Valentin Urea nitrogen [Mass/Vol] 5.0 mg/dL Critically low 7.0-18.0 [facility] Comment on above: Performed By: #### C MP #### [facility] [address] [place] [address] Dr. Steve Valentin Urea nitrogen/Creatinine [Mass ratio] 5.4 mg/mg Normal [facility] Comment on above: Performed By: #### C MP #### [facility] [address] [place] [address] Dr. Steve Valentin CBC AUTO DIFFon 12-30-2021 BASO # 0.0 103/ul Normal 0.0-0.1 [facility] Comment on above: Performed By: #### C BC #### [facility] [address] [place] [address] Dr. Steve Valentin Basophils/100 WBC (Bld) 0.5 % Normal 0.2-2.0 [facility] Comment on above: Performed By: #### C BC #### [facility] [address] [place] [address] Dr. Steve Valentin EO # 0.1 103/ul Normal 0.0-0.7 [facility] Comment on above: Performed By: #### C BC #### [facility] [address] [place] [address] Dr. Steve Valentin Eosinophils/100 WBC (Bld) 3.2 % Normal 0.9-7.0 [facility] Comment on above: Performed By: #### C BC #### [facility] [address] [place] [address] Dr. Steve Valentin Erythrocyte distribution width (RBC) [Ratio] 14.0 % Normal 11.0-15.0 [facility] Comment on above: Performed By: #### C BC #### [facility] [address] [place] [address] Dr. Steve Valentin Hematocrit (Bld) [Volume fraction] 38.3 % Normal 36.0-48.0 [facility] Comment on above: Performed By: #### C BC #### [facility] [address] [place] [address] Dr. Steve Valentin Hemoglobin (Bld) [Mass/Vol] 11.7 g/dL Critically low 12.0-16.0 [facility] Comment on above: Performed By: #### C BC #### [facility] [address] [place] [address] Dr. Steve Valentin IG # 0.01 10e3/ul Normal 0.00-0.03 [facility] Comment on above: Performed By: #### C BC #### [facility] [address] [place] [address] Dr. Steve Valentin IG % 0.2 % Normal 0.0-0.5 [facility] Comment on above: Performed By: #### C BC #### [facility] [address] [place] [address] Dr. Steve Valentin LYMPH # 1.3 103/ul Normal 1.2-3.8 [facility] Comment on above: Performed By: #### C BC #### [facility] [address] [place] [address] Dr. Steve Valentin Lymphocytes/100 WBC (Bld) 29.6 % Normal 20.5-60.0 [facility] Comment on above: Performed By: #### C BC #### [facility] [address] [place] [address] Dr. Steve Valentin MANUAL DIFF REQ NO Normal [facility] Comment on above: Performed By: #### C BC #### [facility] [address] [place] [address] Dr. Steve Valentin MCH (RBC) [Entitic mass] 26.0 pg Critically low 26.7-34.0 [facility] Comment on above: Performed By: #### C BC #### [facility] [address] [place] [address] Dr. Steve Valentin MCHC (RBC) [Mass/Vol] 30.5 g/dL Normal 29.9-35.2 [facility] Comment on above: Performed By: #### C BC #### [facility] [address] [place] [address] Dr. Steve Valentin MCV (RBC) [Entitic vol] 85.1 fL Normal 81.0-99.0 [facility] Comment on above: Performed By: #### C BC #### [facility] [address] [place] [address] Dr. Steve Valentin MONO # 0.5 103/ul Normal 0.3-0.8 [facility] Comment on above: Performed By: #### C BC #### [facility] [address] [place] [address] Dr. Steve Valentin Monocytes/100 WBC (Bld) 10.6 % Normal 1.7-12.0 [facility] Comment on above: Performed By: #### C BC #### [facility] [address] [place] [address] Dr. Steve Valentin NEUT # 2.4 103/ul Normal 1.4-6.5 [facility] Comment on above: Performed By: #### C BC #### [facility] [address] [place] [address] Dr. Steve Valentin Neutrophils/100 WBC (Bld) 55.9 % Normal 43.0-75.0 [facility] Comment on above: Performed By: #### C BC #### [facility] [address] [place] [address] Dr. Steve Valentin Platelet mean volume (Bld) [Entitic vol] 10.0 fL Normal 9.5-13.5 [facility] Comment on above: Performed By: #### C BC #### [facility] [address] [place] [address] Dr. Steve Valentin PLT 169 103/ul Normal 150-450 [facility] Comment on above: Performed By: #### C BC #### [facility] [address] [place] [address] Dr. Steve Valentin RBC 4.50 106/ul Normal 4.20-5.40 [facility] Comment on above: Performed By: #### C BC #### [facility] [address] [place] [address] Dr. Steve Valentin WBC 4.4 103/ul Normal 4.0-11.0 [facility] Comment on above: Performed By: #### C BC #### [facility] [address] [place] [address] Dr. Steve Valentin BASO # 0.0 103/ul Normal 0.0-0.1 [facility] Comment on above: Performed By: #### C BC #### [facility] [address] [place] [address] Dr. Steve Valentin Basophils/100 WBC (Bld) 0.4 % Normal 0.2-2.0 [facility] Comment on above: Performed By: #### C BC #### [facility] [address] [place] [address] Dr. Steve Valentin EO # 0.2 103/ul Normal 0.0-0.7 [facility] Comment on above: Performed By: #### C BC #### [facility] [address] [place] [address] Dr. Steve Valentin Eosinophils/100 WBC (Bld) 2.6 % Normal 0.9-7.0 [facility] Comment on above: Performed By: #### C BC #### [facility] [address] [place] [address] Dr. Steve Valentin Erythrocyte distribution width (RBC) [Ratio] 13.9 % Normal 11.0-15.0 [facility] Comment on above: Performed By: #### C BC #### [facility] [address] [place] [address] Dr. Steve Valentin Hematocrit (Bld) [Volume fraction] 39.1 % Normal 36.0-48.0 [facility] Comment on above: Performed By: #### C BC #### [facility] [address] [place] [address] Dr. Steve Valentin Hemoglobin (Bld) [Mass/Vol] 12.3 g/dL Normal 12.0-16.0 [facility] Comment on above: Performed By: #### C BC #### [facility] [address] [address] [address] Steve Valentin IG # 0.02 10e3/ul Normal 0.00-0.03 [facility] Comment on above: Performed By: #### C BC #### [facility] [address] [place] [address] Dr. Steve Valentin IG % 0.4 % Normal 0.0-0.5 [facility] Comment on above: Performed By: #### C BC #### [facility] [address] [place] [address] Dr. Steve Valentin LYMPH # 1.1 103/ul Critically low 1.2-3.8 [facility] Comment on above: Performed By: #### C BC #### [facility] [address] [place] [address] Dr. Steve Valentin Lymphocytes/100 WBC (Bld) 18.9 % Critically low 20.5-60.0 [facility] Comment on above: Performed By: #### C BC #### [facility] [address] [place] [address] Dr. Steve Valentin MANUAL DIFF REQ NO Normal [facility] Comment on above: Performed By: #### C BC #### [facility] [address] [place] [address] Dr. Steve Valentin MCH (RBC) [Entitic mass] 26.3 pg Critically low 26.7-34.0 [facility] Comment on above: Performed By: #### C BC #### [facility] [address] [place] [address] Dr. Steve Valentin MCHC (RBC) [Mass/Vol] 31.5 g/dL Normal 29.9-35.2 [facility] Comment on above: Performed By: #### C BC #### [facility] [address] [place] [address] Dr. Steve Valentin MCV (RBC) [Entitic vol] 83.7 fL Normal 81.0-99.0 [facility] Comment on above: Performed By: #### C BC #### [facility] [address] [address] [address] Steve Valentin MONO # 0.6 103/ul Normal 0.3-0.8 [facility] Comment on above: Performed By: #### C BC #### [facility] [address] [place] [address] Dr. Steve Valentin Monocytes/100 WBC (Bld) 10.0 % Normal 1.7-12.0 [facility] Comment on above: Performed By: #### C BC #### [facility] [address] [place] [address] Dr. Steve Valentin NEUT # 3.9 103/ul Normal 1.4-6.5 [facility] Comment on above: Performed By: #### C BC #### [facility] [address] [place] [address] Dr. Steve Valentin Neutrophils/100 WBC (Bld) 67.7 % Normal 43.0-75.0 [facility] Comment on above: Performed By: #### C BC #### [facility] [address] [place] [address] Dr. Steve Valentin Platelet mean volume (Bld) [Entitic vol] 10.0 fL Normal 9.5-13.5 [facility] Comment on above: Performed By: #### C BC #### [facility] [address] [place] [address] Dr. Steve Valentin PLT 200 103/ul Normal 150-450 [facility] Comment on above: Performed By: #### C BC #### [facility] [address] [place] [address] Dr. Steve Valentin RBC 4.67 106/ul Normal 4.20-5.40 [facility] Comment on above: Performed By: #### C BC #### [facility] [address] [place], [place] [address] Dr. Steve Valentin WBC 5.7 103/ul Normal 4.0-11.0 [facility] Comment on above: Performed By: #### C BC #### [facility] [address] [place], [place] [address] ABD/PELV W CONon [...] LO COSTA Date: 2021-12-30 08:30 Normal [facility] Covid-19 PCR (CVDTB)on SARS-CoV-2 (COVID-19) RNA RADHA+probe Ql (Unsp spec) Not detected Normal NOT DETECTED [facility] Comment on above: Result Comment: When diagnostic [...] for this test is supported by the Stock [employer]cher of Health and Human Service's declaration that [...] used). Performed By: #### C VDTBH #### [facility] [address] [place] [address] Dr. Steve Valentin DIRECT COOMBSon 12-30-2021 DIRECT AMARJIT Negative Normal [facility] Comment on above: Performed By: #### C TABBY, HSTROPN #### [facility] [address] [place] [address] Dr. Steve Valentin LACTATE/LACTIC ACIDon 2021 Lactate [Moles/Vol] 1.2 mmol/L Normal 0.4-1.9 [facility] Comment on above: Performed By: #### L ACT #### [facility] [address] [place] [address] Dr. Steve Valentin PROF 14(COMP METB)on 022 Albumin [Mass/Vol] 3.4 g/dL Normal 3.4-5.0 [facility] Comment on above: Performed By: #### C MP, HSTROPN #### [facility] [address] [place] [address] Dr. Steve Valentin Albumin/Globulin [Mass ratio] 1.1 {ratio} Normal [facility] Comment on above: Performed By: #### C TABBY, HSTROPN #### [facility] [address] [address] [address] Steve Valentin ALP [Catalytic activity/Vol] 66 U/L Normal 46-116 [facility] Comment on above: Performed By: #### C TABBY, HSTROPN #### [facility] [address] [place] [address] Dr. Steve Valentin ALT [Catalytic activity/Vol] 18 U/L Normal 14-59 [facility] Comment on above: Performed By: #### C TABBY, HSTROPN #### [facility] [address] [place] [address] Dr. Steve Valentin Anion gap [Moles/Vol] 9.1 mmol/L Normal [facility] Comment on above: Performed By: #### C TABBY, HSTROPN #### [facility] [address] [place] [address] Dr. Steve Valentin AST [Catalytic activity/Vol] 14 U/L Critically low 15-37 [facility] Comment on above: Performed By: #### C TABBY, HSTROPN #### [facility] [address] [place] [address] Dr. Steve Valentin Bilirubin [Mass/Vol] 0.3 mg/dL Normal 0.2-1.0 [facility] Comment on above: Performed By: #### C TABBY, HSTROPN #### [facility] [address] [place] [address] Dr. Steve Valentin Calcium [Mass/Vol] 9.2 mg/dL Normal 8.5-10.1 [facility] Comment on above: Performed By: #### C TABBY, HSTROPN #### [facility] [address] [place] [address] Dr. Steve Valentin Chloride [Moles/Vol] 104 mmol/L Normal 98-107 [facility] Comment on above: Performed By: #### C TABBY, HSTROPN #### [facility] [address] [place] [address] Dr. Steve Valentin CO2 [Moles/Vol] 25.5 mmol/L Normal 21.0-32.0 [facility] Comment on above: Performed By: #### C MP, HSTROPN #### [facility] [address] [address] [address] Steve Valentin Creatinine [Mass/Vol] 0.94 mg/dL Normal 0.55-1.02 [facility] Comment on above: Performed By: #### C MP, HSTROPN #### [facility] [address] [address] [address] Steve Valentin EGFR-AF SIERRA LEONEAN >60 Normal >=60 [facility] Comment on above: Performed By: #### C MP, HSTROPN #### [facility] [address] [address] [address] Steve Valentin EGFR-NON AF SIERRA LEONEAN >60 Normal >=60 [facility] Comment on above: Performed By: #### C MP, HSTROPN #### [facility] [address] [address] [address] Steve Valentin Globulin (S) [Mass/Vol] 3.1 g/dL Normal [facility] Comment on above: Performed By: #### C MP, HSTROPN #### [facility] [address] [address] [address] Steve Valentin Glucose [Mass/Vol] 98 mg/dL Normal 74-106 [facility] Comment on above: Performed By: #### C MP, HSTROPN #### [facility] [address] [address] [address] Steve Valentin Potassium [Moles/Vol] 3.6 mmol/L Normal 3.5-5.1 [facility] Comment on above: Performed By: #### C MP, HSTROPN #### [facility] [address] [address] [address] Steve Valentin Protein [Mass/Vol] 6.5 g/dL Normal 6.4-8.2 [facility] Comment on above: Performed By: #### C MP, HSTROPN #### [facility] [address] [address] [address] Steve Valentin Sodium [Moles/Vol] 135 mmol/L Critically low 136-145 [facility] Comment on above: Performed By: #### C TABBY, HSTROPN #### [facility] [address] [address] [address] Steve Valentin Urea nitrogen [Mass/Vol] 11.0 mg/dL Normal 7.0-18.0 [facility] Comment on above: Performed By: #### C MP, HSTROPN #### [facility] [address] [address] [address] Steve Valentin Urea nitrogen/Creatinine [Mass ratio] 11.7 mg/mg Normal [facility] Comment on above: Performed By: #### C TABBY, HSTROPN #### [facility] [address] [place] [address] Dr. Steve Valentin TROPONIN, HIGH SENSITIVITYon 12-30-2021 HSTROP 8.6 pg/mL Normal 4.0-51.3 [facility] Comment on above: Result Comment: CUT- OFF POINTS HAVE BEEN ESTABLISHED BASED ON THE FOURTH UNIVERSAL DEFINITIONS OF MYOCARDIAL INFARCTION. THE UPPER REFERENCE LIMIT (URL) OF TROPONIN, DEFINED THE 99TH PERCENTILE OF cTnI DISTRIBUTION IN A REFERENCE POPULATION, HAS BEEN CONFIRMED THE DECISION THRESHOLD FOR [place] DIAGNOSIS. Performed By: #### C TABBY, HSTROPN #### [facility] [address] [place] [address] Dr. Steve Valentin TYPE AND SCREENon 12-30-2021 TYPE AND SCREEN Positive Normal [facility] Comment on above: Performed By: #### T NS #### [facility] [address] [place] [address] Dr. Steve Valentin XR CERVICAL SPINE (2-3 [...] Yaritza Pinedo MD 01/20/20 Final result Normal [facility] Multilevel degenerative changes [place], [place] EXAMINATION: XRAY VIEWS OF THE CERVICAL [...] dislocation or significant prevertebral soft tissue swelling [place], [place] Tarik, Mhpn Incoming Radiant Results From [employer] - 01/20/2020 11:34 AM EDT EXAMINATION: XRAY [...] soft tissue swelling IMPRESSION: Multilevel degenerative changes [place], [place] XR LUMBAR SPINE (2-3 VIEWS)o n [...] Mitesh Ho MD 01/20/20 Final result Normal [facility] No acute abnormality lumbosacral spine. Degenerative findings most severe at L5-S1, with evidence DDD. [place], [place] EXAMINATION: THREE XRAY VIEWS OF THE [...] Large amount of retained stool right colon. [place], [place] Tarik, Mhpn Incoming Radiant Results From [employer] - 01/20/2020 12:11 PM EDT EXAMINATION: THREE [...] most severe at L5-S1, with evidence DDD. [facility] [place] Hematologyon 01-25-2018 Basophils Auto #/vol (Bld) 0.7 % Invalid Interpretation Code [facility] Basophils/100 WBC Auto (Bld) 0.0 K/uL Invalid Interpretation Code 0.0-0.1 [facility] Eosinophils/100 WBC Auto (Bld) 3.2 % Invalid Interpretation Code [facility] Erythrocyte distribution width Auto Ratio (RBC) 14.2 % Invalid Interpretation Code 10.8-14.8 [facility] Hematocrit Auto Volume Fraction (Bld) 34.70 % Invalid Interpretation Code 36.0-48.0 [facility] Hemoglobin S Solubility test Ql (Bld) 11.7 Invalid Interpretation Code 12.0-16.0 [facility] Lymphocytes/100 WBC Auto (Bld) 43.3 % Invalid Interpretation Code [facility] MCH Auto Entitic mass (RBC) 27.1 pg Invalid Interpretation Code 27.0-34.0 [facility] MCHC Auto mass conc (RBC) 33.7 g/dL Invalid Interpretation Code 31.0-36.0 [facility] MCV Auto Entitic volume (RBC) 80.5 fL Invalid Interpretation Code 80.-100. [facility] Monocytes/100 WBC Auto (Bld) 6.5 % Invalid Interpretation Code [facility] Neutrophils/100 WBC Auto (Bld) 46.1 % Invalid Interpretation Code [facility] Nucleated RBC/100 WBC Ratio (Bld) 0.1 10*3/uL Invalid Interpretation Code 0.1-0.4 [facility] Nucleated RBC/100 WBC Ratio (Bld) 1.9 10*3/uL Invalid Interpretation Code 0.8-5.2 [facility] Nucleated RBC/100 WBC Ratio (Bld) 0.3 10*3/uL Invalid Interpretation Code 0.1-0.9 [facility] Nucleated RBC/100 WBC Ratio (Bld) 2.0 10*3/uL Invalid Interpretation Code 1.3-9.1 [facility] RBC Auto #/vol (Bld) 4.310 10*6/uL Invalid Interpretation Code 4.00-5.50 [facility] Metabolic Panelon 01-25-2018 Albumin mass conc 4.10 g/dL Invalid Interpretation Code 3.5-5.2 [facility] ALP enzyme act/vol 50 U/L Invalid Interpretation Code 30-111 [facility] ALT enzyme act/vol 14 U/L Invalid Interpretation Code 5-40 [facility] Anion gap 3 molar conc 12 mmol/L Invalid Interpretation Code 10-19 [facility] AST enzyme act/vol 13 U/L Invalid Interpretation Code 9-40 [facility] Calcium mass conc 9.90 mg/dL Invalid Interpretation Code 8.5-10.5 [facility] Chloride molar conc 103 mmol/L Invalid Interpretation Code 95-107 [facility] CO2 molar conc 28 mmol/L Invalid Interpretation Code 19-31 [facility] Creatinine mass conc 1.0 mg/dL Invalid Interpretation Code 0.6-1.3 [facility] Glucose mass conc 89 mg/dL Invalid Interpretation Code 70-99 [facility] Potassium molar conc 4.30 mmol/L Invalid Interpretation Code 3.5-5.4 [facility] Protein mass conc 6.0 g/dL Invalid Interpretation Code 6.1-8.3 [facility] Protein mass conc 0.59 g/dL Invalid Interpretation Code <0.5 [facility] Sodium molar conc 143 mmol/L Invalid Interpretation Code 135-146 [facility] Urea nitrogen mass conc 14.0 mg/dL Invalid Interpretation Code 8-23 [facility] Otheron 10-04-2018 Bilirubin Ql (U) 0.2 Invalid Interpretation Code <1.3 [facility] WBC LM Ql (Sput) 4.4 Invalid Interpretation Code 3.7-10.8 [facility] 74.5 Invalid Interpretation Code >59 [facility] 237 Invalid Interpretation Code 150.-450. [facility] 15 Invalid Interpretation Code 0-30 [facility] 64.3 Invalid Interpretation Code >59 [facility] Thyroidon 01-25-2018 T4 free mass conc 1.140 ng/dL Invalid Interpretation Code 0.80-1.90 [facility] Thyrotropin Qn 1.750 uIU/mL Invalid Interpretation Code 0.400-4.100 [facility] Progress Noteon 10-23-2017 HIM IP Note OR Condominium Manager Normal [facility] HIM IP Note OR Condominium Manager Normal [facility] Otheron 09-20-2017 3 Invalid Interpretation Code [facility] 3 Invalid Interpretation Code [facility] Cardiacon 09-14-2017 Cholesterol 220 mg/dL Invalid Interpretation Code <200 [facility] HDL Cholesterol 77.0 mg/dL Invalid Interpretation Code >39 [facility] Triglyceride 113.0 mg/dL Invalid Interpretation Code <150 [facility] Hematologyon 09-14-2017 Basophils Auto #/vol (Bld) 1.0 % Invalid Interpretation Code [facility] Basophils/100 WBC Auto (Bld) 0.1 K/uL Invalid Interpretation Code 0.0-0.1 [facility] Eosinophils/100 leukocytes 2.9 % Invalid Interpretation Code [facility] Erythrocyte distribution width Auto Ratio (RBC) 14.1 % Invalid Interpretation Code 10.8-14.8 [facility] Erythrocytes (RBC) 4.230 10*6/uL Invalid Interpretation Code 4.00-5.50 [facility] Hematocrit (HCT) 37.0 % Invalid Interpretation Code 36.0-48.0 [facility] Hemoglobin S presence 11.7 Invalid Interpretation Code 12.0-16.0 [facility] Lipoprotein a mass conc 0.2 10*3/uL Invalid Interpretation Code 0.1-0.4 [facility] Lipoprotein a mass conc 2.0 10*3/uL Invalid Interpretation Code 0.8-5.2 [facility] Lipoprotein a mass conc 0.5 10*3/uL Invalid Interpretation Code 0.1-0.9 [facility] Lipoprotein a mass conc 2.6 10*3/uL Invalid Interpretation Code 1.3-9.1 [facility] Lymphocytes/100 leukocytes 37.6 % Invalid Interpretation Code [facility] PostedIn MCH 27.7 pg Invalid Interpretation Code 27.0-34.0 [facility] MCHC mass conc (RBC) 31.6 g/dL Invalid Interpretation Code 31.0-36.0 [facility] MCV 87.5 fL Invalid Interpretation Code 80.-100. [facility] Monocytes/100 leukocytes 8.8 % Invalid Interpretation Code [facility] Neutrophils/100 leukocytes 49.5 % Invalid Interpretation Code [facility] WBC (Leukocytes) 5.2 10*3/uL Invalid Interpretation Code 3.7-10.8 [facility] Otheron 09-14-2017 Cholesterol crystals Infrared spectroscopy Ql (Stone) 220 mg/dL Invalid Interpretation Code <200 [facility] Cholesterol to HDL Ratio 2.9 {ratio} Invalid Interpretation Code <5 [facility] LDL to HDL Ratio 1.6 Invalid Interpretation Code <3.5 [facility] Lipoprotein.beta/Lipo protein.alpha mass ratio 1.6 Invalid Interpretation Code <3.5 [facility] PreB-LP SerPl-mCnc 23.0 mg/dL Invalid Interpretation Code <30 [facility] PreB-LP SerPl-mCnc 120.0 mg/dL Invalid Interpretation Code <130 [facility] WBC LM Ql (Sput) 5.2 Invalid Interpretation Code 3.7-10.8 [facility] 298 Invalid Interpretation Code 150.-450. [facility] Thyroidon 09-14-2017 Thyroid stimulating hormone (TSH) 2.270 uIU/mL Invalid Interpretation Code 0.40-4.10 [facility] Thyroxine (T4) free 0.990 ng/dL Invalid Interpretation Code 0.80-1.90 [facility] Vital Signs Date Time Vital Sign Value Performing Clinician Ni barnard 01-31-2024 14:17-0400 Body mass index (BMI) [Ratio] 62.69 kg/m2 Erica Pompa ETHICAL H[employer]ER Work Phone: [facility] 01-31-2024 14:17-040 Body temperature 97.2 [degF] Erica Alexanderk ETHICAL HACKER Work Phone: [facility] 01-31-2024 14:17-0400 Body weight 145.6 kg Erica Pompa ETHICAL HACKER Work Phone: [facility] 01-31-2024 14:17-0400 Diastolic blood pressure 80 mm[Hg] Erica Menonpatrick ETHICAL HACKER Work Phone: [facility] 01-31-2024 14:17-0400 Heart rate 57 /min Erica Siddiquitrick ETHICAL HACKER Work Phone: [facility] 01-31-2024 14:17-0400 SaO2% (BldA) [Mass fraction] 94 % Erica Siddiquitrick ETHICAL HACKER Work Phone: [facility] 01-31-2024 14:17-0400 Systolic blood pressure 152 mm[Hg] Erica Siddiquitrick ETHICAL HACKER Work Phone: [facility] 02-13-2018 13:08-0400 BMI (Body Mass Index) 56.47 kg/m2 [facility] 02-13-2018 13:08-0400 Body Temperature 98 [degF] [facility] 02-13-2018 13:08-0400 BP Diastolic 80 mm[Hg] [facility] 02-13-2018 13:08-0400 BP Systolic 124 mm[Hg] [facility] 02-13-2018 13:08-0400 BSA (Body Surface Area) 2.39 m2 [facility] 02-13-2018 13:08-0400 Height 153.67 cm [facility] 02-13-2018 13:08-0400 Pulse (Heart Rate) 74 /min [facility] 02-13-2018 13:08-0400 Pulse Oximetry 97 % [facility] 02-13-2018 13:08-0400 Respiratory Rate 20 /min Leda Agrawal [facility] 02-13-2018 13:08-0400 Weight 133.36 kg Leda Agrawal [facility] 02-13-2018 10:08-0400 Body height 153.67 cm Leda Agrawal CNP Work Phone: [facility] Work Phone: 02-13-2018 10:08-0400 Body mass index (BMI) [Ratio] 56.5 kg/m2 Leda Agrawal CNP Work Phone: [facility] Work Phone: 02-13-2018 10:08-0400 Body surface area Derived from formula 2.21 m2 Leda Agrawal CNP Work Phone: [facility] Work Phone: 02-13-2018 10:08-0400 Body temperature 98 [degF] Leda Agrawal CNP Work Phone: [facility] Work Phone: 02-13-2018 10:08-0400 Body weight 133.36 kg Leda Agrawal CNP Work Phone: [facility] Work Phone: 02-13-2018 10:08-0400 Diastolic blood pressure 80 mm[Hg] Leda Agrawal CNP Work Phone: [facility] Work Phone: 02-13-2018 10:08-0400 Heart rate 74 /min Leda Agrawal CNP Work Phone: [facility] Work Phone: 02-13-2018 10:08-0400 Respiratory rate 20 /min Leda Agrawal CNP Work Phone: [facility] Work Phone: 02-13-2018 10:08-0400 Systolic blood pressure 124 mm[Hg] Leda Agrawal CNP Work Phone: [facility] Work Phone: 01-25-2018 12:47-0400 BMI (Body Mass Index) 56.47 kg/m2 [facility] 01-25-2018 12:47-0400 Body Temperature 98.4 [degF] [facility] 01-25-2018 12:47-0400 BP Diastolic 82 mm[Hg] [facility] 01-25-2018 12:47-0400 BP Systolic 122 mm[Hg] [facility] 01-25-2018 12:47-0400 BSA (Body Surface Area) 2.39 m2 [facility] 01-25-2018 12:47-0400 Height 153.67 cm [facility] 01-25-2018 12:47-0400 Pulse (Heart Rate) 73 /min [facility] 01-25-2018 12:47-0400 Pulse Oximetry 96 % [facility] 01-25-2018 12:47-0400 Respiratory Rate 18 /min [facility] 01-25-2018 12:47-0400 Weight 133.36 kg [facility] 01-25-2018 09:47-0400 Body height 153.67 cm Leda Tanja [facility] Work Phone: [facility] Work Phone: 01-25-2018 09:47-0400 Body mass index (BMI) [Ratio] 56.5 kg/m2 Leda Tanja [facility] Work Phone: [facility] Work Phone: 01-25-2018 09:47-0400 Body surface area Derived from formula 2.21 m2 Leda Agrawal CNP Work Phone: [facility] Work Phone: 01-25-2018 09:47-0400 Body temperature 98.4 [degF] Leda Agrawal CNP Work Phone: [facility] Work Phone: 01-25-2018 09:47-0400 Body weight 133.36 kg Leda Agrawal CNP Work Phone: [facility] Work Phone: 01-25-2018 09:47-0400 Diastolic blood pressure 82 mm[Hg] Leda Agrawal CNP Work Phone: [facility] Work Phone: 01-25-2018 09:47-0400 Heart rate 73 /min Leda Agrawal CNP Work Phone: [facility] Work Phone: 01-25-2018 09:47-0400 Respiratory rate 18 /min Leda Agrawal CNP Work Phone: [facility] Work Phone: 01-25-2018 09:47-0400 Systolic blood pressure 122 mm[Hg] Leda Agrawal CNP Work Phone: [facility] Work Phone: 11-14-2017 18:20-0400 BMI (Body Mass Index) 56.47 kg/m2 Leda Agrawal [facility] 11-14-2017 18:20-0400 Body Temperature 97.4 [degF] Leda Agrawal [facility] 11-14-2017 18:20-0400 BP Diastolic 80 mm[Hg] Leda Agrawal [facility] 11-14-2017 18:20-0400 BP Systolic 130 mm[Hg] Leda Agrawal [facility] 11-14-2017 18:20-0400 BSA (Body Surface Area) 2.39 m2 Leda Agrawal [facility] 11-14-2017 18:20-0400 Height 153.67 cm [facility] 11-14-2017 18:20-0400 Pulse (Heart Rate) 96 /min Leda Tanja [facility] 11-14-2017 18:20-0400 Pulse Oximetry 95 % [facility] 11-14-2017 18:20-0400 Respiratory Rate 18 /min [facility] 11-14-2017 18:20-0400 Weight 133.36 kg [facility] 11-14-2017 15:20-0400 Body height 153.67 cm Leda Agrawal CNP Work Phone: [facility] Work Phone: 11-14-2017 15:20-0400 Body mass index (BMI) [Ratio] 56.5 kg/m2 Leda Agrawal CNP Work Phone: [facility] Work Phone: 11-14-2017 15:20-0400 Body surface area Derived from formula 2.21 m2 Leda Agrawal CNP Work Phone: [facility] Work Phone: 11-14-2017 15:20-0400 Body temperature 97.4 [degF] Leda Agrawal CNP Work Phone: [facility] Work Phone: 11-14-2017 15:20-0400 Body weight 133.36 kg Leda Agrawal CNP Work Phone: [facility] Work Phone: 11-14-2017 15:20-0400 Diastolic blood pressure 80 mm[Hg] Leda Agrawal CNP Work Phone: [facility] Work Phone: 11-14-2017 15:20-0400 Heart rate 96 /min Leda Agrawal CNP Work Phone: [facility] Work Phone: 11-14-2017 15:20-0400 Respiratory rate 18 /min Leda Agrawal CNP Work Phone: [facility] Work Phone: 11-14-2017 15:20-0400 Systolic blood pressure 130 mm[Hg] Leda Agrawal CNP Work Phone: [facility] Work Phone: 10-12-2017 11:11-0400 BMI (Body Mass Index) 57.12 kg/m2 [facility] 10-12-2017 11:11-0400 Body Temperature 98.8 [degF] [facility] 10-12-2017 11:11-0400 BP Diastolic 83 mm[Hg] [facility] 10-12-2017 11:11-0400 BP Systolic 122 mm[Hg] [facility] 10-12-2017 11:11-0400 BSA (Body Surface Area) 2.4 m2 [facility] 10-12-2017 11:11-0400 Height 153.67 cm [facility] 10-12-2017 11:11-0400 Pulse (Heart Rate) 79 /min [facility] 10-12-2017 11:11-0400 Pulse Oximetry 99 % [facility] 10-12-2017 11:11-0400 Respiratory Rate 18 /min [facility] 10-12-2017 11:11-0400 Weight 134.89 kg [facility] 10-12-2017 10:11-0400 BMI (Body Mass Index) 57.12 kg/m2 [facility] 10-12-2017 10:11-0400 Body Temperature 98.8 [degF] [facility] 10-12-2017 10:11-0400 BP Diastolic 83 mm[Hg] [facility] 10-12-2017 10:11-0400 BP Systolic 122 mm[Hg] [facility] 10-12-2017 10:11-0400 BSA (Body Surface Area) 2.4 m2 [facility] 10-12-2017 10:11-0400 Height 153.67 cm [facility] 10-12-2017 10:11-0400 Pulse (Heart Rate) 79 /min [facility] 10-12-2017 10:11-0400 Pulse Oximetry 99 % [facility] 10-12-2017 10:11-0400 Respiratory Rate 18 /min [facility] 10-12-2017 10:11-0400 Weight 134.89 kg [facility] 10-12-2017 08:11-0400 Body height 153.67 cm [facility] Work Phone: [facility] Work Phone: 10-12-2017 08:11-0400 Body mass index (BMI) [Ratio] 57 kg/m2 Leda Agrawal CNP Work Phone: [facility] Work Phone: 10-12-2017 08:11-0400 Body surface area Derived from formula 2.22 m2 Leda Agrawal CNP Work Phone: [facility] Work Phone: 10-12-2017 08:11-0400 Body temperature 98.8 [degF] Leda Agrawal CNP Work Phone: [facility] Work Phone: 10-12-2017 08:11-0400 Body weight 134.72 kg Leda Agrawal CNP Work Phone: [facility] Work Phone: 10-12-2017 08:11-0400 Diastolic blood pressure 83 mm[Hg] Leda Agrawal CNP Work Phone: [facility] Work Phone: 10-12-2017 08:11-0400 Heart rate 79 /min Leda Agrawal CNP Work Phone: [facility] Work Phone: 10-12-2017 08:11-0400 Respiratory rate 18 /min Leda Agrawal CNP Work Phone: [facility] Work Phone: 10-12-2017 08:11-0400 Systolic blood pressure 122 mm[Hg] Leda Agrawal CNP Work Phone: [facility] Work Phone: 09-20-2017 17:04-0400 BP Diastolic 80 mm[Hg] Leda Agrawal [facility] 09-20-2017 17:04-0400 BP Systolic 136 mm[Hg] Leda Agrawal [facility] 09-20-2017 16:19-0400 BMI (Body Mass Index) 59.21 kg/m2 Leda Agrawal [facility] 09-20-2017 16:19-0400 Body Temperature 97.1 [degF] [facility] 09-20-2017 16:19-0400 BP Diastolic 80 mm[Hg] [facility] 09-20-2017 16:19-0400 BP Systolic 142 mm[Hg] [facility] 09-20-2017 16:19-0400 BSA (Body Surface Area) 2.44 m2 [facility] 09-20-2017 16:19-0400 Height 153.67 cm [facility] 09-20-2017 16:19-0400 Pulse (Heart Rate) 94 /min [facility] 09-20-2017 16:19-0400 Pulse Oximetry 96 % [facility] 09-20-2017 16:19-0400 Respiratory Rate 18 /min [facility] 09-20-2017 16:19-0400 Weight 139.82 kg [facility] 09-20-2017 16:04-0400 BP Diastolic 80 mm[Hg] [facility] 09-20-2017 16:04-0400 BP Systolic 136 mm[Hg] [facility] 09-20-2017 15:19-0400 BMI (Body Mass Index) 59.21 kg/m2 [facility] 09-20-2017 15:19-0400 Body Temperature 97.1 [degF] [facility] 09-20-2017 15:19-0400 BP Diastolic 80 mm[Hg] Leda Tanja [facility] 09-20-2017 15:19-0400 BP Systolic 142 mm[Hg] [facility] 09-20-2017 15:19-0400 BSA (Body Surface Area) 2.44 m2 [facility] 09-20-2017 15:19-0400 Height 153.67 cm [facility] 09-20-2017 15:19-0400 Pulse (Heart Rate) 94 /min [facility] 09-20-2017 15:19-0400 Pulse Oximetry 96 % [facility] 09-20-2017 15:19-0400 Respiratory Rate 18 /min [facility] 09-20-2017 15:19-0400 Weight 139.82 kg [facility] 09-20-2017 14:04-0400 Diastolic blood pressure 80 mm[Hg] Leda Agrawal [employer] Work Phone: [facility] Work Phone: 09-20-2017 14:04-0400 Systolic blood pressure 136 mm[Hg] Leda Agrawal [employer] Work Phone: [facility] Work Phone: 09-20-2017 13:19-0400 Body height 153.67 cm Leda Agrawal [facility] Work Phone: [facility] Work Phone: 09-20-2017 13:19-0400 Body mass index (BMI) [Ratio] 59.2 kg/m2 Leda Agrawal [facility] Work Phone: [facility] Work Phone: 09-20-2017 13:19-0400 Body surface area Derived from formula 2.26 m2 Leda Agrawal CNP Work Phone: [facility] Work Phone: 09-20-2017 13:19-0400 Body temperature 97.1 [degF] Leda Agrawal CNP Work Phone: [facility] Work Phone: 09-20-2017 13:19-0400 Body weight 139.71 kg Leda Agrawal CNP Work Phone: [facility] Work Phone: 09-20-2017 13:19-0400 Diastolic blood pressure 80 mm[Hg] Leda Agrawal CNP Work Phone: [facility] Work Phone: 09-20-2017 13:19-0400 Heart rate 94 /min Leda Agrawal CNP Work Phone: [facility] Work Phone: 09-20-2017 13:19-0400 Respiratory rate 18 /min Leda Agrawal CNP Work Phone: [facility] Work Phone: 09-20-2017 13:19-0400 Systolic blood pressure 142 mm[Hg] Leda Agrawal CNP Work Phone: [facility] Work Phone: 09-14-2017 12:35-0400 BMI (Body Mass Index) 59.76 kg/m2 Leda Agrawal [facility] 09-14-2017 12:35-0400 Body Temperature 97 [degF] Leda Agrawal [facility] 09-14-2017 12:35-0400 BP Diastolic 72 mm[Hg] Leda Agrawal [facility] 09-14-2017 12:35-0400 BP Systolic 122 mm[Hg] Leda Agrawal [facility] 09-14-2017 12:35-0400 BSA (Body Surface Area) 2.45 m2 [facility] 09-14-2017 12:35-0400 Height 153.67 cm [facility] 09-14-2017 12:35-0400 Pulse (Heart Rate) 71 /min [facility] 09-14-2017 12:35-0400 Pulse Oximetry 97 % [facility] 09-14-2017 12:35-0400 Respiratory Rate 18 /min [facility] 09-14-2017 12:35-0400 Weight 141.13 kg [facility] 09-14-2017 11:35-0400 BMI (Body Mass Index) 59.76 kg/m2 [facility] 09-14-2017 11:35-0400 Body Temperature 97 [degF] [facility] 09-14-2017 11:35-0400 BP Diastolic 72 mm[Hg] [facility] 09-14-2017 11:35-0400 BP Systolic 122 mm[Hg] [facility] 09-14-2017 11:35-0400 BSA (Body Surface Area) 2.45 m2 [facility] 09-14-2017 11:35-0400 Height 153.67 cm [facility] 09-14-2017 11:35-0400 Pulse (Heart Rate) 71 /min [facility] 09-14-2017 11:35-0400 Pulse Oximetry 97 % Leda Agrawal [facility] 09-14-2017 11:35-0400 Respiratory Rate 18 /min Leda Agrawal [facility] 09-14-2017 11:35-0400 Weight 141.13 kg Leda Agrawal [facility] 09-14-2017 09:35-0400 Body height 153.67 cm Leda Agrawal CNP Work Phone: [facility] Work Phone: 09-14-2017 09:35-0400 Body mass index (BMI) [Ratio] 59.7 kg/m2 Leda Agrawal CNP Work Phone: [facility] Work Phone: 09-14-2017 09:35-0400 Body surface area Derived from formula 2.27 m2 Leda Agrawal CNP Work Phone: [facility] Work Phone: 09-14-2017 09:35-0400 Body temperature 97 [degF] Leda Agrawal CNP Work Phone: [facility] Work Phone: 09-14-2017 09:35-0400 Body weight 141.07 kg Leda Agrawal CNP Work Phone: [facility] Work Phone: 09-14-2017 09:35-0400 Diastolic blood pressure 72 mm[Hg] Leda Agrawal CNP Work Phone: [facility] Work Phone: 09-14-2017 09:35-0400 Heart rate 71 /min Leda Agrawal CNP Work Phone: [facility] Work Phone: 09-14-2017 09:35-0400 Respiratory rate 18 /min Leda Agrawal CNP Work Phone: [facility] Work Phone: 09-14-2017 09:35-0400 Systolic blood pressure 122 mm[Hg] Leda Agrawal UTILITY TELLER Work Phone: [facility] Work Phone: Encounters Encounter Date Encounter Type Care Provider Facility Start: 03-19-2024 End: 03-19-2024 Telephone encounter Roger Rodas CMA [facility] Start: 02-16-2024 End: 02-16-2024 Refill Janedebra Tinajero NATURAL RESOURCES MANAGER-UTILITY TELLER Work Phone: [facility] Start: 01-31-2024 End: 01-31-2024 Bamboo flowsheet Erica Alexanderk ETHICAL HACKER Work Phone: [facility] Start: 01-31-2024 End: 01-31-2024 Bamboo flowsheet Erica Alexanderk ETHICAL HACKER Work Phone: [facility] Start: 01-31-2024 End: 01-31-2024 Office outpatient visit 10 minutes Erica Alexanderk ETHICAL HACKER Work Phone: [facility] Comment on above: Chronic obstructive pulmonary disease with acute exacerbation (CMS/HCC) (Primary Dx); Chronic rhinitis; Bipolar depression (CMS/HCC); ADORE (obstructive sleep apnea); Pulmonary emphysema, unspecified emphysema type (CMS/HCC) Start: 01-31-2024 End: 01-31-2024 Refill Jane Tinajero NATURAL RESOURCES MANAGER-UTILITY TELLER Work Phone: [facility] Start: 01-31-2024 End: 01-31-2024 ambulatory ERICA ALEXANDERK Not Available Start: 01-29-2024 End: 01-29-2024 Refill Janedebra Tinajero NATURAL RESOURCES MANAGER-UTILITY TELLER Work Phone: [facility] Start: 01-29-2024 End: 01-29-2024 Refill Erica Alexanderk ETHICAL HACKER Work Phone: [facility] Comment on above: ARSH (generalized anx iety disorder) ([facility]) Start: 01-22-2024 End: 01-22-2024 ambulatory HANANE CLEANING [facility] Start: 01-12-2024 End: 01-12-2024 ambulatory WANDA [facility] Start: 12-19-2023 End: 12-19-2023 ambulatory [facility] Start: 11-29-2023 End: 11-29-2023 ambulatory [facility] Start: 11-09-2023 End: 11-09-2023 ambulatory [facility] Start: 11-07-2023 End: 11-07-2023 ambulatory [facility] Start: 11-07-2023 End: 11-07-2023 [facility] Start: 11-02-2023 End: 11-02-2023 ambulatory SHAWN E ZAMORA [facility] Start: 11-02-2023 End: 11-02-2023 ambulatory SHAIKH JHONY Not Available Start: 10-20-2023 End: 10-25-2023 Evaluation and management of inpatient WANDA Fonseca [facility] Start: 10-18-2023 End: 10-25-2023 Evaluation and management of inpatient NATASHACHAN. RANDLE [facility] Start: 10-14-2023 End: 10-19-2023 Emergency department patient visit JOSE TORRES [facility] Start: 10-14-2023 End: 10-18-2023 Evaluation and management of inpatient NOT IN [facility] Start: 04-26-2023 End: 04-26-2023 ambulatory SHAIKH JHONY Not Available Start: 04-15-2022 End: 04-17-2022 ambulatory QUYNH ARCHER Facility: Start: 02-08-2022 End: 02-09-2022 ambulatory NANCI BEEBE Facility:H1 Start: 12-30-2021 End: 12-31-[address] VU RIVERA Facility:H1 Start: 01-20-2020 End: 01-23-2020 Patient encounter procedure TIM SHARMA [facility] Start: 01-20-2020 End: 01-22-2020 Subsequent hospital visit by physician Roman Palacio Dr Room 4 [facility] Comment on above: Chronic bilateral lo w back pain without sciatica Chronic neck pain; Chronic bilateral low back pain without sciatica Start: 07-31-2018 Patient encounter procedure Danilodevorahjohnathan Kirkpatrick Facility:[id number] Start: 07-20-2018 End: 07-20-2018 General Leda Tanja VARNER Work Phone: [facility] Work Phone: Start: 02-13-2018 End: 02-13-2018 Patient encounter procedure Leda Tanja UTILITY TELLER Work Phone: [facility] Work Phone: Start: 02-13-2018 Office outpatient vi sit 15 minutes Leda Tanja Other [facility] Start: 01-25-2018 End: 01-25-2018 Patient encounter procedure Leda Tanja UTILITY TELLER Work Phone: [facility] Work Phone: Start: 01-25-2018 Office outpatient vi sit 15 minutes Leda Tanja Other [facility] Start: 11-14-2017 Office outpatient vi sit 15 minutes Leda Tanja Other [facility] Start: 11-14-2017 End: 11-14-2017 Patient encounter procedure Leda Tanja UTILITY TELLER Work Phone: [facility] Work Phone: Start: 10-12-2017 End: 10-12-2017 Patient encounter procedure Leda Tanja UTILITY TELLER Work Phone: [facility] Work Phone: Start: 10-12-2017 End: 10-12-2017 Office outpatient visit 15 minutes Leda Agrawal Other [facility] Start: 10-12-2017 Polysom 6/>yrs sleep 4/> [facility] Start: 10-12-2017 Polysom 6/>yrs sleep w/cpap 4/> addl nicky attnd [facility] Start: 09-20-2017 End: 09-20-2017 Office outpatient visit 15 minutes Leda Agrawal Other [facility] Start: 09-20-2017 End: 09-20-2017 Patient encounter procedure Leda Agrawal TELLY Work Phone: [facility] Work Phone: Start: 09-14-2017 End: 09-14-2017 Patient encounter procedure Leda Agrawal TELLY Work Phone: [facility] Work Phone: Start: 09-14-2017 Laboratory examinati on, unspecified Leda [facility] Start: 09-14-2017 Colonoscopy w/biopsy single/multiple [facility] Start: 09-14-2017 Dxa bone density kourtney dy 1/> sites axial skel [facility] Start: 09-14-2017 End: 09-14-2017 Office outpatient new 45 minutes Leda Agrawal Other [facility] Procedures Date Procedure Procedure Detail Performing Clinician Start: 10-19-2023 Adult depression scr eening assessment Jane Tinajero APRN-UTILITY TELLER Work Phone: Start: 01-20-2020 Radex spine lumbosac ral 2/3 views TIM SHARMA Start: 01-20-2020 Radex spine cervical 2 or 3 views TIM SHARMA Start: 01-20-2020 Radex spine lumbosac ral 2/3 views Tim Sharma Work Phone: Start: 01-20-2020 Radex spine cervical 2 or 3 views Tim Sharma Work Phone: Start: 10-14-2019 Colonoscopy Erica Emerson beatriz ETHICAL HACKER Work Phone: Start: 02-25-2019 Mammography Erica Emerson kendelltrick ETHICAL HACKER Work Phone: Start: 08-10-2018 Follow-up visit Start: [...] Treatment Date Care Activity Detail Author Start: 10-13-2029 Screening for malign ant neoplasm of colon [facility] Start: 01-14-2025 Adult BMI Screening Adult BMI Screen ing [facility] Start: 11-28-2024 Tobacco Screening Tobacco Screening [facility] Start: 10-18-2024 Depression Screening Depression Scre ening [facility] Start: 10-13-2024 Screening for malign ant neoplasm of colon Colonoscopy [facility] Start: 03-25-2024 End: 03-25-2024 Patient encounter procedure 03/25/2024 10:30 AM EST Office Visit PHN [facility] [address] [place] [id number] Fran Wild MD [facility] [place] [address] [facility] Start: 02-06-2024 End: 02-06-2024 Patient encounter procedure 02/06/2024 1:30 PM EDT Office Visit [facility] [address] [place] [address] Erica Pompa NP [address] [place] [address] [facility] Start: 01-31-2024 End: 01-31-2024 Patient encounter procedure 01/31/2024 2:00 PM EDT Office Visit [facility] [address] [place] [address] Erica Pompa, REINA [address] [place] [address] Arrived [facility] Comment on above: Arrived Start: 01-31-2024 End: 01-30-2025 XR Chest 2 Views XR chest 2 views Imaging Routine Chronic obstructive pulmonary disease with acute exacerbation (CMS/HCC) Expected: 01/31/2024, Expires: 01/30/2025 [facility] Work Phone: Comment on above: Expected: 01/31/2024 , Expires: 01/30/2025 Start: 12-24-2023 Influenza vaccination P [facility] Start: 01-30-2021 COVID-19 Vaccine (2 - Roxanne risk series) COVID-19 Vaccine (2 - Roxanne risk series) [facility] Start: 04-30-2020 End: 04-30-2020 Office Visit 04/30/2020 Office Visit Neurology Tim Sharma MD [address] [place] [address] [place] [address] [facility] Start: 02-26-2020 Screening for malign ant neoplasm of breast Mammogram [facility] Start: 12-24-2019 Influenza vaccination Flu vaccine (# 1) [place], [place] Start: 08-31-2019 Screening for malign ant neoplasm of lung Low dose CT lung screening [place], [place] Start: 02-13-2019 Creatinine measurement Creatinine mo [place]itoring [place] Start: 11-30-2018 Potassium monitoring Potassium monit oring [place] Start: 11-08-2018 Lipid panel Lipid screen [place], [place] Start: 08-02-2018 [facility]HC visit, estab pt Established [facility] Work Phone: Start: 10-12-2017 Polysom 6/>yrs sleep 4/> addl nicky attnd Polysomnography with CPAP testing [facility] Start: 10-12-2017 Polysom 6/>yrs sleep w/cpap 4/> addl nicky attnd Polysomnography with CPAP testing [facility] Start: 09-14-2017 Dual energy X-ray ph oton absorptiometry DEXA scan for body composition study [facility] Start: 08-22-2016 Screening for malign ant neoplasm of breast Breast cancer screen [place] Start: 01-24-2016 Screening for malign ant neoplasm of cervix Cervical cancer screen [place] Start: 2014 Screening for malign ant neoplasm of colon Colon cancer screen colonoscopy [place] Start: 2014 Shingles Vaccine (1 of 2) Shingles Vaccine (1 of 2) [place], [place] Start: 1994 Screening for malign ant neoplasm of cervix [facility] Start: 1985 Screening for malign ant neoplasm of cervix Pap Smear [facility] Start: 08-31-1983 Administration of varicella zoster vaccine Zoster (Shingles) Vaccine (1 of 2) [facility] Start: 08-31-1983 DTaP,Tdap and Td Vaccines (1 - Tdap) DTaP,Tdap and Td Vaccines (1 - Tdap) [facility] Start: 08-31-1983 DTaP/Tdap/Td vaccine (1 - Tdap) DTaP/Tdap/Td vaccine (1 - Tdap) [place] Start: 1982 Adult BMI Follow Up Plan Adult BMI F ollow Up Plan [facility] Start: 08-31-1979 HIV screening HIV screen [place], [place] Start: 1970 Pneumococcal 0-64 ye ars Vaccine (1 of 1 - PPSV23) Pneumococcal 0-64 years Vaccine (1 of 1 - PPSV23) [place], [place] Start: 1964 Hepatitis C screening Hepatitis C sc reen [place], [place] Start: 1964 Screening for malign ant neoplasm of colon [facility] Start: 1964 Tobacco Counseling Tobacco Counselin g [facility] Immunizations Immunization Date Immunization Notes Care Provider Cheryl braswell 01-02-2021 COVID-19 Vaccine, vector-nr, rS-Ad26, PF, 0.5mL Jane Tinajero NATURAL RESOURCES MANAGER-UTILITY TELLER Work Phone: [facility] Payers Date Payer Category Payer Medicaid HMO [facility] MEDICAID [id number] 2022 Medicaid [id number] 2017 Medicaid [id number] 1959 Private Health Insurance [id number] [id number] 1964 Unknown [id number] 2.16.840.1.611470.3.579. 2.356 1964 Unknown [id number] 2.16.840.1.279885.3.579. 2.173 1964 Unknown [id number] 2.16.840.1.431412.3.579. 2.173 1964 Unknown [id number] 2.16.840.1.307518.3.579. 2.173 1964 Unknown [id number] 2.16.840.1.303256.3.579. 2.593 1964 Unknown [id number] 2.16.840.1.624355.3.579. 2.593 1964 Unknown [id number] 2.16.840.1.320027.3.579. 2.593 1964 Unknown [id number] 2.16.840.1.881371.3.579. 2.1286 1964 Unknown [id number] 2.16.840.1.195021.3.579. 2.128 1964 Unknown [id number] 2.16.840.1.457543.3.579. 2.1285 1964 Unknown [id number] 2.16.840.1.163971.3.579. 2.1285 1964 Unknown [id number] 2.16.840.1.445865.3.579. 2.1285 1964 Unknown [id number] 2.16.840.1.890035.3.579. 2.1285 1964 Unknown [id number] 2.16.840.1.584696.3.579. 2.1285 1964 Unknown [id number] 2.16.840.1.014403.3.579. 2.128 1964 Unknown [id number] 2.16.840.1.490588.3.579. 2.1285 1964 Unknown [id number] 2.16.840.1.100433.3.579. 2.128 1964 Unknown [id number] 2.16.840.1.308407.3.579. 2.1259 1964 Unknown [id number] 2.16.840.1.508755.3.579. 2.1258 1964 Unknown [id number] 2.16.840.1.502060.3.579. 2.1259 Social History Date Type Detail Facility Start: Current every day smoker [facility] Start: 01-20-2020 End: 12-25-2020 Current every day smoker [facility] End: 12-17-2012 [facility] of tobacco use [facility] Start: 01-20-2020 End: 06-04-2020 Cigarettes smoked current (pack per day) - Reported [facility] Start: 01-20-2020 End: 12-25-2020 Tobacco use and exposure [facility] Start: 01-20-2020 Alcohol intake Current non-dr shake cutter of alcohol (finding) [facility] Start: 1965 Sex Assigned At Not on file [place] Exposure to SARS-CoV -2 (event) Not sure [place], [place] Tobacco smoking status Unknown if ever sm [facility] Work Phone: Start: 01-15-2024 Alcoholic beverage intake Ex-drinker (finding) [facility] Start: 06-04-2020 End: 10-19-[address] [facility] Utilities [facility] Has the [place], or [employer] threatened to shut off services in your home in past 12Mo No [facility] How often to you hav e a drink containing alcohol? Monthly or less [facility] How many standard drinks containing alcohol do you have on a typical day? 1 or 2 [facility] How often do you hav e 6 or more drinks on 1 occasion? Never [facility] Adolescent depressio n screening assessment 0 [facility] History of tobacco use Passive smoker [facility] Start: 11-02-2023 Alcoholic beverage intake Lifetime non-drinker (finding) [facility] Start: 11-27-2014 Sex Female (finding) [facility] Goals Date Patient Goal Desired Activity /State Personal health goal Comment on above: Formatting of this n ote might be different from the original. Evaluation of progress towards goal: Patient plans to discharge home with self care and with assistance from family. Clinical Notes 02-09-2022 to 03-19-2024 Telephone Encounter - Roger Rodas CMA - 03/19/2024 9:40 AM ESTTelephone Encounter - Roger Rodas CMA - 03/19/2024 9:40 AM Tammy Pompa NP - 01/31/2024 4:06 PM EDTPatient Instructions Note Date & Type Note Facility 03-19-2024 Miscellaneous Notes Called patient and left a voicemail to confirm their upcoming appt on 03/25/24 in [place] with Fran Wild MD. The patient was instructed to call our office back to further confirm: [phone] documented in this encounter [facility] 03-19-2024 Telephone encounter Note Called patient and left a voicemail to confirm their upcoming appt on 03/25/24 in [place] with Fran Wild MD. The patient was instructed to call our office back to further confirm: [phone] [facility] 01-31-2024 History of Present illness Narrative Associated Problem(s): Chronic obstructive pulmonary disease ([facility]) Poorly controlled COPD. Currently taking Trelegy daily. Presents today with COPD exacerbation, productive cough, wheezing, shortness of breath X7 days. SPO2 97% on RA. Rhonchi and wheezing noted throughout. Pt is currently taking Prednisone 60mg daily. Ordered CXR and Prescribed Levaquin X7 days, Duonebs Q6H PRN, Albuterol inhaler to be used after acute exacerbation PRN. Advised pt to have CXR completed YVAN. Phoned [place] radiology to call with results. Advised pt if dyspnea, chest pain, dizziness, or worsening symptoms occur to report to ER immediately. Pt verbalized understanding. 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 Has hx of ADORE- does not wear CPAP. Referral sent to Dr. Warner - pulmonology Images from the original note were not included. Subjective Patient ID: Danielle Montana is a 58 y.o. female who presents for Cough. HPI Productive cough X7days White phlegm Shortness of breath Wheezing Chest soreness Ear congested Sinus congestion Runny nose Post nasal drip Myalgias Denies: fever Sore throat Was previously seeing Pulmonology in [place], has not been seen in 2 years. Needs to establish with new wood form builder. Review of Systems Constitutional: Negative for activity change, appetite change, chills, diaphoresis, fatigue, fever and unexpected weight change. HENT: Positive for congestion, rhinorrhea and sinus pressure. Negative for ear pain, sinus pain, sneezing, sore throat, trouble swallowing and voice change. Eyes: Negative for visual disturbance. Respiratory: Positive for cough, shortness of breath and wheezing. Negative for chest tightness. Cardiovascular: Negative for chest pain, palpitations and leg swelling. Gastrointestinal: Negative for abdominal distention, abdominal pain, blood in stool, constipation, diarrhea and vomiting. Genitourinary: Negative for decreased urine volume, dysuria, flank pain, frequency, hematuria and urgency. Musculoskeletal: Positive for myalgias. Negative for arthralgias, gait problem and joint swelling. Skin: Negative for rash. Neurological: Negative for dizziness, tremors, syncope, weakness, light-headedness and headaches. Psychiatric/Behavioral: Negative for decreased concentration and suicidal ideas. The patient is not nervous/anxious. Hematological: Does not bruise/bleed easily. Endocrine: Negative for cold intolerance, heat intolerance, polydipsia, polyphagia and polyuria. Objective Physical Exam Vitals reviewed. Constitutional: Appearance: Normal appearance. HENT: Head: Normocephalic and atraumatic. Right Ear: Tympanic membrane normal. Left Ear: Tympanic membrane normal. Nose: Nose normal. Mouth/Throat: Mouth: Mucous membranes are moist. Pharynx: Oropharynx is clear. Eyes: Pupils: Pupils are equal, round, and reactive to light. Cardiovascular: Rate and Rhythm: Normal rate and regular rhythm. Pulses: Normal pulses. Heart sounds: Normal heart sounds. Pulmonary: Effort: Pulmonary effort is normal. Breath sounds: Wheezing and rhonchi present. Abdominal: General: Abdomen is flat. Bowel sounds are normal. Palpations: Abdomen is soft. Musculoskeletal: General: Normal range of motion. Cervical back: Normal range of motion. Skin: General: Skin is warm and dry. Capillary Refill: Capillary refill takes less than 2 seconds. Neurological: General: No focal deficit present. Mental Status: She is alert and oriented to person, place, and time. Psychiatric: Mood and Affect: Mood normal. Behavior: Behavior normal. Assessment/Plan Problem List Items Addressed This Visit Chronic obstructive pulmonary disease (CMS/HCC) - Primary Poorly controlled COPD. Currently taking Trelegy daily. Presents today with COPD exacerbation, productive cough, wheezing, shortness of breath X7 days. SPO2 97% on RA. Rhonchi and wheezing noted throughout. Pt is currently taking Prednisone 60mg daily. Ordered CXR and Prescribed Levaquin X7 days, Duonebs Q6H PRN, Albuterol inhaler to be used after acute exacerbation PRN. Advised pt to have CXR completed YVAN. Phoned [facility]ology to call with results. Advised pt if dyspnea, chest pain, dizziness, or worsening symptoms occur to report to ER immediately. Pt verbalized understanding. 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 Has hx of ADORE- does not wear CPAP. Referral sent to Dr. Warner - pulmonology Relevant Medications albuterol HFA 90 mcg/act inhaler levoFLOXacin (Levaquin) 750 MG tablet guaiFENesin (Mucinex) 600 MG 12 hr tablet ipratropium-albuterol (Duo-Neb) 0.5-2.5 mg/3 mL nebulizer solution Other Relevant Orders XR chest 2 views Ambulatory referral to Pulmonology Ambulatory referral to Pulmonology ADORE (obstructive sleep apnea) Relevant Orders Ambulatory referral to Pulmonology Bipolar depression ([facility]) Relevant Medications lamoTRIgine (LaMICtal) 100 MG tablet Chronic rhinitis Relevant Medications cetirizine (ZyrTEC) 10 MG tablet Emphysema of lung ([facility]) Relevant Orders Ambulatory referral to Pulmonology documented in this encounter [facility] 01-31-2024 Instructions Erica Pompa NP - 01/31/2024 2:00 PM EDT Start and finish all medications as prescribed. Have chest X ray completed YVAN Referral sent to pulmonology-Dr. Warner They will call you. If you do not hear from them within 2 weeks, call my office. Worsening shortness of breath, chest pain, gasping for air, dizziness, GO TO ER!!!! documented in this encounter [facility] 12-19-2023 Note Attestation signed by Elizabeth Hi MD at 12/19/2023 8:02 PM GC: I saw this patient. I personally performed the critical/vázquez portions that determines the level of service. I was directly involved in the management and treatment plan of the patient. I reviewed note and agree with the documentation [facility] Progress Note Subjective Danielle Montana is an 58 y.o. 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 She was admitted to [facility] between 10/18/2023-10/25/2023 initially presenting to [facility] with bilateral upper and lower extremity [...] CT GUIDED PERCUTANEO (more content not included)... [facility] 11-07-2023 Note Attestation signed by Elizabeth Hi MD at 11/07/2023 8:44 PM GC: I saw this patient. I personally performed the critical/vázquez portions that determines the level of service. I was directly involved in the management and treatment plan of the patient. I reviewed note and agree with the documentation [facility] New Patient Visit Subjective Chief Complaint: No chief complaint on file. Danielle Montana is an 58 y.o. 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 She was admitted to [facility] between 10/18/2023-10/25/2023 initially presenting to [facility] with bilateral upper and lower extremity [...] and hypercarbia (CMS/HCC) ERIN (acute kidney injury) ([facility]/HCC) Anxiety Astigmatism, regular B12 deficiency Bipolar depression (CMS/HCC) Cancer ([facility]/HCC) Cellulitis of left hand Cervical cancer ([facility]/HCC) Chronic obstructive pulmonary disease ([facility]) Chronic rhinitis COPD with acute exacerbation ([facility]/HCC) Emphysema of lung (CMS/[facility]) Class 3 severe obesity due to excess calories without serious comorbidity in adult ([facility]/HCC) Morbid (severe) obesity due to excess calories ([facility]/HCC) Morbid obesity (CMS/HCC) Cluster headache Degenerative arthritis [...] disturbance, psychotic disturbance, mood disturbance, or anxiety ([facility]) Mouth sores Tongue lesion MRSA (methicillin resistant Staphylococcus aureus) Nausea Non-recurrent acute suppurative otitis media of both ears without spontaneous rupture of tympanic membranes Open angle with borderline findings and high glaucoma risk in both eyes ADORE (obstructive sleep apnea) Osteoporosis Back pain Chest pain on exertion Other chest pain PAD (peripheral artery disease) ([facility]) Peripheral visual field defect, bilateral Pneumonia of both lungs due to infectious organism Presbyopia Henry's edema of vocal folds Right knee pain Smoking SOB (shortness of breath) Stiff muscles Swollen ankles Tear of articular cartilage of right knee, current, initial encounter Tinnitus (more content not included)... [facility] 02-09-2022 Note PROCEDURE: XR ANKLE RT MIN [...] authenticated by: LO COSTA Date: 2022-02-09 06:49 [facility] 02-09-2022 Note PROCEDURE: XR ANKLE RT MIN [...] by: LO COSTA Date: 2022-02-09 06:49 [facility] Evaluation note Includes: Assessments for all patient encountersNo Assessments Recorded Health [facility] Work Phone: Evaluation note Diagnosis ARSH (generalized anxiety disorder) (CMS/HCC) Generalized anxiety disorder documented in this encounter [facility] Diagnosis Chronic obstructive pulmonary disease with acute exacerbation (CMS/HCC)- Primary Chronic rhinitis Bipolar depression (CMS/HCC) Bipolar I disorder, most recent episode (or current) depressed, unspecified ADORE (obstructive sleep apnea) Obstructive sleep apnea (adult) (pediatric) Pulmonary emphysema, unspecified emphysema type (CMS/HCC) documented in this encounter [facility] Present illness Narrative History of Present Illness not supported for this document type No History of Present Illness Recorded[facility] Work Phone: Instructions Instructions not supported for this document type No Instructions RecordedHealth [facility] Work Phone: InstructionsNot on filedocumented in this encounter [facility]ructionsNot on filedocumented in this encounter [facility] problem outcome Narrative Includes: Evaluations & Outcomes for active Goals No Outcomes RecordedHealth [facility] Work Phone: reason for referral (narrative)* Consultation (Routine) - Pending Review Specialty Diagnoses / Procedures Referred By Juan fonseca Referred To Contact Pulmonary Disease Diagnoses Chronic obstructive pulmonary disease with acute exacerbation (CMS/HCC) ADORE (obstructive sleep apnea) Pulmonary emphysema, unspecified emphysema type (CMS/HCC) Procedures [facility] OFFICE/OUTPATIENT [facility] 60 MINUTES Erica Pompa NP [address] [place] [phone] Referral ID Status Reason Start Date Expiration Date Visits Requested Visits Authorized [id number] Pending Review Specialty Services Required 01/31/2024 07/29/2024 1 1 [facility] systems Narrative - Reported Review of Systems not supported for this document type No Review of Systems [facility] Work Phone: History of Past [...] FoundNo Family History Records Found Advance Directives Documents on File Type Date Recorded 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 ACP-Advance Directive ACP-Power of Label Drier Documents on File Type Date Recorded 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 Durable Power of Label Drier 01/12/2021 1:47 PM Living Will 01/12/2021 1:47 PM DNR Physician Order 01/12/2021 1:47 PM Date Activated Date Inactivated Comments 10/19/2023 12:20 AM 10/25/2023 7:16 PM Date Activated Date Inactivated Comments 10/15/2023 8:24 AM 10/18/2023 11:19 PM Date Activated Date Inactivated Comments 12/30/2020 12:36 PM 01/02/2021 4:30 PM Date Activated Date Inactivated Comments 12/25/2020 3:50 PM 12/30/2020 12:36 PM Date Activated Date Inactivated Comments 10/08/2020 1:02 PM 10/08/2020 6:57 PM Assessments Diagnosis Chronic bilateral low back pain without sciatica Diagnosis Chronic neck pain Cervicalgia Chronic bilateral low back pain without sciatica Physical Exam Physical Exam not supported for this document type No Physical Exam Recorded Additional Source Comments INFORMATION SOURCE (unrecogn ized section and content) DATE CREATED AUTHOR 10/23/2017 [facility] DATE CREATED AUTHOR AUTHOR'S ORGANIZ ATION 08/01/2018 [facility] DATE CREATED AUTHOR AUTHOR'S ORGANIZ ATION 08/11/2018 [employer] DATE CREATED AUTHOR AUTHOR'S ORGANIZ ATION 01/23/2020 [facility] DATE CREATED AUTHOR AUTHOR'S ORGANIZ ATION 04/19/2022 [facility] DATE CREATED AUTHOR AUTHOR'S ORGANIZ ATION 01/14/2024 [facility] DATE CREATED AUTHOR AUTHOR'S ORGANIZ ATION 01/23/2024 [facility] DATE CREATED AUTHOR AUTHOR'S ORGANIZ ATION 02/02/2024 [facility] EP[facility] DATE CREATED AUTHOR AUTHOR'S ORGANIZ ATION 03/09/2024 [facility] Reason for Visit (unrecogniz ed section and content) Reason Comments Med Refill Reason Onset Date Comments Med Refill 01/29/2024 Reason Comments Cough Care Teams (unrecognized sec tion and content) Flooring Professional Relationship Specialty Start Date End Date Shawn Zamora MD [address] [place] [address] PCP - General Family Medicine 10/19/23 Flooring Professional Relationship Specialty Start Date End Date Vu Rivera MD [address] [place] [phone] PCP - General Family Medicine 12/12/23 Erica Pompa NP [address] [place] [phone] Nurse Practitioner Family Medicine 12/12/23 Flooring Professional Relationship Specialty Start Date End Date Vu Rivera MD [address] [place] [phone] PCP - General Family Medicine 12/12/23 Erica Pompa NP [address] [place] [phone] Nurse Practitioner Family Medicine 12/12/23 Flooring Professional Relationship Specialty Start Date End Date Vu Rivera MD [address] [place] [phone] PCP - General Family Medicine 12/12/23 Erica Pompa NP [address] [facility] [place] [phone] Nurse Practitioner Family Medicine 12/12/23 Flooring Professional Relationship Specialty Start Date End Date Shawn Zamora MD [address] [place] [address] PCP - General Family Medicine 10/19/23 FOR RECORDS PERTAINING TO PATIENTS WHO ARE [...] BE BASED ON THE PRIMARY CLINICAL RECORDS. [email or web address] provides no warranty or guarantee of the accuracy or completeness of information in this document.
--- NOTE | 2024-03-23 08:38 | ED_ITS ---
HPI HPI - General Adult General Chief complaint: Upper Respiratory Infection Stated complaint: SOB Time Seen by Provider: 03/23/24 08:33 Source: patient Mode of arrival: Wheelchair History of Present Illness HPI narrative: The patient have history of COPD , 58 years old female is coming to us with 1 week history of shortness of breath associated with a cough productive of green sputum phlegm, the patient also mentioned having some congestion in the retrosternal area and pain whenever she is taking deep breath or coughing No leg edema or swelling Related Data Home Medications ?Medication ?Instructions ?Recorded ?Confirmed albuterol sulfate 90 mcg/actuation inhalation 03/23/24 aerosol inhaler buspirone 15 mg tablet 15 mg PO DAILY 03/23/24 03/23/24 carvedilol 25 mg tablet 25 mg PO Q12H 03/23/24 03/23/24 donepezil 10 mg tablet 10 mg PO DAILY 03/23/24 03/23/24 duloxetine 60 mg capsule,delayed 60 mg PO DAILY 03/23/24 03/23/24 release ferrous sulfate 325 mg (65 mg 325 mg PO DAILY 03/23/24 03/23/24 iron) tablet (FeroSul) Previous Rx's ?Medication ?Instructions ?Recorded azithromycin 250 mg tablet See Rx Instructions PO .COMPLEX #6 02/12/23 (Zithromax Z-Tao) tabs prednisone 50 mg tablet 50 mg PO DAILY 5 days #5 tabs 02/12/23 azithromycin 250 mg tablet See Rx Instructions PO .COMPLEX #6 07/21/23 (Zithromax Z-Tao) tabs prednisone 10 mg tablet See Rx Instructions .Route 07/21/23 .COMPLEX #30 tabs cephalexin 500 mg capsule 500 mg PO TID 5 days #15 caps 01/20/24 meloxicam 15 mg tablet 15 mg PO DAILY PRN pain #10 tabs 01/20/24 azithromycin 250 mg tablet See Rx Instructions PO .COMPLEX #6 03/23/24 (Zithromax Z-Tao) tabs cephalexin 500 mg capsule 500 mg PO Q8H 7 days #21 caps 03/23/24 prednisone 50 mg tablet 50 mg PO DAILY 5 days #5 tabs 03/23/24 Allergies Allergy/AdvReac Type Severity Reaction Status Date / Time codeine Allergy Intermediate Nausea Verified 01/20/24 10:41 pregabalin (From Lyrica) Allergy Intermediate Rash Verified 01/20/24 10:41 sulfamethoxazole (From Allergy Intermediate Rash Verified 01/20/24 10:41 Bactrim) trimethoprim (From Bactrim) Allergy Intermediate Rash Verified 01/20/24 10:41 Opioid HPI Opioid Management Most Recent Opioid Data: Last Pain Scale 0 03/23/24 08:48 03/23/24 Last ED Pain Assessment 03/23/24 08:48 Review of Systems ROS Status of ROS 10 or more systems reviewed and unremark able except as noted in history and below PFSH PFS Social History Smoking status: Current every day smoker Little interest or pleasure in doing things: not at all Feeling down, depressed, or hopeless: not at all Exam Narrative Exam Narrative: Nurses notes and vital signs reviewed and patient is not hypoxic. General: Well-appearing and in no apparent distress. Skin: Warm, dry, no pallor noted. No rash. Head: Normocephalic, atraumatic. Neck: Supple, non-tender. Cardiovascular: Regular Rate and Rhythm without murmur, gallop or rub. Respiratory: The patient sitting up there is distant breathing sounds and there is tachypnea as well Chest Wall: no tenderness Back: No midline thoracic or lumbar vertebral tenderness. No CVA tenderness Musculoskeletal: normal ROM, no calf or popliteal tenderness, no lower extremity edema/swelling GI: Abdomen is soft, non-distended. Normal bowel sounds. No masses appreciated. No tenderness to palpation. No rebound, guarding, or rigidity noted. Neurological: A&O x4. No cranial nerve dysfunction observed. No truncal ataxia. Moves all extremities. Sensation intact. Psychiatric: Cooperative and interactive. Normal mood and affect. Constitutional Vital Signs, click to edit/add: Last Vital Signs Temp 97.6 F 03/23/24 08:28 Pulse 69 03/23/24 10:10 Resp 21 H 03/23/24 10:10 BP 130/106 H 03/23/24 09:46 Pulse Ox 96 03/23/24 10:10 O2 Del Method Room Air 03/23/24 08:48 Course Vital Signs Vital signs: Vital Signs Temperature 97.6 F 03/23/24 08:28 Pulse Rate 82 03/23/24 08:28 Respiratory Rate 22 H 03/23/24 08:28 Blood Pressure 200/90 H 03/23/24 08:28 Pulse Oximetry 93 L 03/23/24 08:28 Oxygen Delivery Method Room Air 03/23/24 08:28 Temperature 97.6 F 03/23/24 08:28 Pulse Rate 69 03/23/24 10:10 Respiratory Rate 21 H 03/23/24 10:10 Blood Pressure 130/106 H 03/23/24 09:46 Pulse Oximetry 96 03/23/24 10:10 Oxygen Delivery Method Room Air 03/23/24 08:48 Medical Decision Making [facility] Narrative Medical decision making narrative: The patient EKG in the ER showing sinus rhythm with a heart rate of [address] elevation or depression The patient CBC shows mild leukocytosis chemistry showing no significant pathology except for mild acute kidney injury although there is no previous creatinine for comparison The patient chest x-ray shows possible bilateral infiltrate With the patient presentation of COPD exacerbation. She will be covered with antibiotic in addition to prednisone she was feeling much better after being treated in the ER with methylprednisone The patient also had no mask for her nebulizer she was provided with that before getting discharged The patient is to follow up with primary care physician in next 2-3 days or to return to the emergency department should any of the signs or symptoms worsen or new symptoms develop. The patient agrees with the following Diagnosis and Treatment plan and the patient will be discharged home. Lab Data Labs: Lab Results 03/23/24 Range/Units 09:09 WBC 12.5 H (4.0-11.0) 10^3/uL RBC 4.38 (4.20-5.40) 10^6/uL Hgb 11.7 L (12.0-16.0) g/dL Hct 38.3 (36.0-48.0) % MCV 87.4 (81.0-99.0) fL MCH 26.7 (26.7-34.0) pg MCHC 30.5 (29.9-35.2) g/dL RDW 13.8 (11.0-15.0) % Plt Count 280 (150-450) 10^3/uL MPV 11.1 (9.5-13.5) fL Neut % (Auto) 76.7 H (43.0-75.0) % Lymph % (Auto) 11.6 L (20.5-60.0) % [place]eton % (Auto) 10.4 (1.7-12.0) % Eos % (Auto) 0.6 L (0.9-7.0) % Baso % (Auto) 0.4 (0.2-2.0) % Neut # (Auto) 9.5 H (1.4-6.5) 10^3/uL Lymph # (Auto) 1.5 (1.2-3.8) 10^3/uL Teton # (Auto) 1.3 H (0.3-0.8) 10^3/uL Eos # (Auto) 0.1 (0.0-0.7) 10^3/uL Baso # (Auto) 0.1 (0.0-0.1) 10^3/uL Abs Immat Gran (auto) 0.04 H (0.00-0.03) 10^3/uL Imm/Tot Granulo (auto) 0.3 (0.0-0.5) % PT 9.6 (9.0-11.6) sec INR <0.93 Sodium 142 (136-145) mmol/L Potassium 3.6 (3.5-5.1) mmol/L Chloride 105 (98-107) mmol/L Carbon Dioxide 29.7 (21.0-32.0) mmol/L Anion Gap 10.9 BUN 18.0 (7.0-18.0) mg/dL Creatinine 1.39 H (0.55-1.02) mg/dL Est GFR ( Amer) 47 L (>=60 mL/min/1.73m^2) Est GFR (Non-Af Amer) 39 L (>=60 mL/min/1.73m^2) BUN/Creatinine Ratio 12.9 Glucose 103 (74-106) mg/dL Calcium 9.1 (8.5-10.1) mg/dL Total Bilirubin 0.4 (0.2-1.0) mg/dL AST 11 L (15-37) U/L ALT 16 (14-59) U/L Alkaline Phosphatase 60 (46-116) U/L Troponin I High Sens 8.3 (4.0-51.3) pg/mL Total Protein 6.3 L (6.4-8.2) g/dL Albumin 2.6 L (3.4-5.0) g/dL Globulin 3.7 g/dL Albumin/Globulin Ratio 0.7 Discharge Plan Discharge Chief Complaint: Upper Respiratory Infection Clinical Impression: COPD exacerbation, Pneumonia Patient Disposition: Home, Self-Care Time of Disposition Decision: 10:09 Condition: Good Prescriptions / Home Meds: New azithromycin [Zithromax Z-Tao] 250 mg tablet See Rx Instructions .ROUTE .COMPLEX Qty: 6 0RF Rx Instructions: For 250 mg dose pack: take 500 mg today (day 1), then 250 mg for 4 days (days 2-5) cephalexin 500 mg capsule 500 mg PO Q8H 7 Days Qty: 21 0RF prednisone 50 mg tablet 50 mg PO DAILY 5 Days Qty: 5 0RF No Action azithromycin [Zithromax Z-Tao] 250 mg tablet See Rx Instructions .ROUTE .COMPLEX Qty: 6 0RF Rx Instructions: For 250 mg dose pack: take 500 mg today (day 1), then 250 mg for 4 days (days 2-5) prednisone 50 mg tablet 50 mg PO DAILY 5 Days Qty: 5 0RF albuterol sulfate 90 mcg/actuation HFA aerosol inhaler INHALATION carvedilol 25 mg tablet 25 mg PO Q12H buspirone 15 mg tablet 15 mg PO DAILY donepezil 10 mg tablet 10 mg PO DAILY duloxetine 60 mg capsule,delayed release(DR/EC) 60 mg PO DAILY ferrous sulfate [FeroSul] 325 mg (65 mg iron) tablet 325 mg PO DAILY prednisone 10 mg tablet See Rx Instructions .ROUTE .COMPLEX Qty: 30 0RF Rx Instructions: 4 by mouth daily for three days then 3 by mouth daily for three days then 2 by mouth daily for three days then 1 by mouth daily for three days azithromycin [Zithromax Z-Tao] 250 mg tablet See Rx Instructions .ROUTE .COMPLEX Qty: 6 0RF Rx Instructions: For 250 mg dose pack: take 500 mg today (day 1), then 250 mg for 4 days (days 2-5) cephalexin 500 mg capsule 500 mg PO TID 5 Days Qty: 15 0RF meloxicam 15 mg tablet 15 mg PO DAILY PRN (Reason: pain ) Qty: 10 0RF Print Language: Urdu Instructions: COPD (Chronic Obstructive Pulmonary Disease) (ED), Community Acquired Pneumonia (DC) Referrals: Shaikh Vasquez MD [Primary Care Provider] - 1 week Discharge Date/Time: 03/23/24 10:22
[2024-03-23] MEDS: IPRATROPIUM/ALBUTEROL SULFATE 3 ML AMPUL.NEB IH (09:10)
[2024-03-23 09:26] LABS: Basophils Absolute Auto 0.1 10^3/uL (0.0-0.1); Basophils Percent Auto 0.4 % (0.2-2.0); Eosinophils Absolute Auto 0.1 10^3/uL (0.0-0.7); Eosinophils Percent Auto 0.6 % (0.9-7.0); Hematocrit 38.3 % (36.0-48.0); Hemoglobin 11.7 g/dL (12.0-16.0); Immature Granulocytes Abs Auto 0.04 10^3/uL (0.00-0.03); Immature Granulocytes Pct Auto 0.3 % (0.0-0.5); Lymphocytes Absolute Auto 1.5 10^3/uL (1.2-3.8); Lymphocytes Percent Auto 11.6 % (20.5-60.0); Mean Corpuscular HGB Conc 30.5 g/dL (29.9-35.2); Mean Corpuscular Hemoglobin 26.7 pg (26.7-34.0); Mean Corpuscular Volume 87.4 fL (81.0-99.0); Mean Platelet Volume 11.1 fL (9.5-13.5); Monocytes Absolute Auto 1.3 10^3/uL (0.3-0.8); Monocytes Percent Auto 10.4 % (1.7-12.0); Neutrophils Absolute Auto 9.5 10^3/uL (1.4-6.5); Neutrophils Percent Auto 76.7 % (43.0-75.0); Platelet Count 280 10^3/uL (150-450); Red Blood Count 4.38 10^6/uL (4.20-5.40); Red Cell Distribution Width 13.8 % (11.0-15.0); White Blood Count 12.5 10^3/uL (4.0-11.0)
[2024-03-23 09:32] LABS: Prothrombin Time 9.6 sec (9.0-11.6)
[2024-03-23 09:41] LABS: Alanine Aminotransferase 16 U/L (14-59); Albumin Globulin Ratio 0.7; Albumin Level 2.6 g/dL (3.4-5.0); Alkaline Phosphatase 60 U/L (46-116); Anion Gap 10.9; Aspartate Amino Transferase 11 U/L (15-37); BUN Creatinine Ratio 12.9; Bilirubin Total 0.4 mg/dL (0.2-1.0); Calcium 9.1 mg/dL (8.5-10.1); Carbon Dioxide 29.7 mmol/L (21.0-32.0); Chloride 105 mmol/L (98-107); Estimated GFR (African America 47 (>=60 mL/min/1.73m^2); Estimated GFR (Non-African Ame 39 (>=60 mL/min/1.73m^2); Globulin 3.7 g/dL; Glucose 103 mg/dL (74-106); Potassium 3.6 mmol/L (3.5-5.1); Sodium 142 mmol/L (136-145); Total Protein 6.3 g/dL (6.4-8.2); Troponin I High Sensitivity 8.3 pg/mL (4.0-51.3)
[2024-03-23] MEDS: METHYLPREDNISOLONE SOD SUCC PF 125 MG/2 ML VIAL IVP (09:43)
[2024-03-23 09:44] LABS: INR <0.93
[2024-03-23] MEDS: AZITHROMYCIN 250 MG TABLET 500 MG PO (10:17)
== END 2024-03-23 10:22 | disposition home or self-care (01) ==
PROVIDERS: Emergency Provider Emergency Medicine; PCP Internal Medicine
DX: J18.9 Pneumonia, unspecified organism (principal); J44.1 Chronic obstructive pulmonary disease with (acute) exacerbation; J44.0 Chronic obstructive pulmonary disease with (acute) lower respiratory infection; F17.200 Nicotine dependence, unspecified, uncomplicated
CPT/HCPCS: 36415; 71045; 80053; 84484; 85025; 85610; 93005; 94640; 96374; 99285; J2919

== ENCOUNTER 2024-04-08 11:20 | Inpatient (IN) | payer OTHER, SELFPAY ==
[2024-04-08] VITALS (20 sets, daily range): BP systolic 161–190; BP diastolic 64–107; PULSE 55–79; TEMP 36.7–36.8; O2SAT 91–96; BMI 60.5; BMI 65.4
--- NOTE | 2024-04-08 11:28 | XR_ITS ---
[address] [address] Patient Name: DANIELLE MONTANA MRN: [id number] date: 1965 Sex: F Assigned Patient Location: ER Current Patient Location: ER Accession/Order Number: [id number] Exam Date: 04/08/2024 11:20 Report Date: 04/08/2024 11:49 At the request of: LIANA SMITH Procedure: XR chest 1V EXAMINATION: XR chest 1V HISTORY: SOB COMPARISON: 03/23/2024 TECHNIQUE: AP portable FINDINGS: LUNGS: No significant pulmonary parenchymal abnormalities. Low lung volumes VASCULATURE: Mildly increased pulmonary vasculature. PLEURA: No pneumothorax, effusion, or pleural thickening. Elevation of the right hemidiaphragm CARDIAC: No cardiomegaly or cardiac silhouette abnormality. MEDIASTINUM: No visible mass or adenopathy. BONES: No fracture or visible bone lesion. OTHER: Negative. XR/XR chest 1V IMPRESSION: Pulmonary vascular congestion Electronically authenticated by: LY MIRELES Date: 04/08/2024 11:49
--- NOTE | 2024-04-08 11:28 | ECG_ITS ---
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
--- NOTE | 2024-04-08 11:29 | ED.SOB1 ---
HPI - SOB/Dyspnea General Chief Complaint: Shortness of Breath/Dyspnea Stated Complaint: SHORTNESS OF BREATH Time Seen by Provider: 04/08/24 11:21 Source: patient Mode of arrival: ambulance History of Present Illness HPI Narrative: 58-year-old female presents for shortness of breath. She has been feeling this way for a month and was here 2 weeks ago and was put on an antibiotic. She has a history of COPD and last used her nebulizer at 3:00 this morning. She had been coughing up green phlegm but now it is clear. No hemoptysis or known fever. Related Data Home Medications ?Medication ?Instructions ?Recorded ?Confirmed albuterol sulfate 90 mcg/actuation 2 puff inhalation Q6H 03/23/24 04/08/24 aerosol inhaler buspirone 15 mg tablet 15 mg PO DAILY 03/23/24 04/08/24 carvedilol 25 mg tablet 25 mg PO Q12H 03/23/24 04/08/24 donepezil 10 mg tablet 10 mg PO DAILY 03/23/24 04/08/24 duloxetine 60 mg capsule,delayed 60 mg PO DAILY 03/23/24 04/08/24 release ferrous sulfate 325 mg (65 mg 325 mg PO DAILY 03/23/24 04/08/24 iron) tablet (FeroSul) bumetanide 1 mg tablet 1 mg PO DAILY 04/08/24 04/08/24 lamotrigine 100 mg tablet 100 mg PO DAILY 04/08/24 04/08/24 Allergies Allergy/AdvReac Type Severity Reaction Status Date / Time codeine Allergy Intermediate Nausea Verified 01/20/24 10:41 pregabalin (From Lyrica) Allergy Intermediate Rash Verified 01/20/24 10:41 sulfamethoxazole (From Allergy Intermediate Rash Verified 01/20/24 10:41 Bactrim) trimethoprim (From Bactrim) Allergy Intermediate Rash Verified 01/20/24 10:41 Review of Systems ROS Narrative A ten point review of systems is negative except as noted above. PFSH PFSH Social History Smoking status: Current every day smoker Little interest or pleasure in doing things: not at all Feeling down, depressed, or hopeless: not at all Exam Narrative Exam Narrative: Nurses note and vital signs reviewed and patient is not hypoxic. General: The patient appears in no apparent distress. Patient is resting comfortably on cart. Skin: Warm, dry, no pallor noted. There is no rash noted. Head: Normocephalic, atraumatic Eye: Normal conjunctiva, no drainage Ears, Nose, Mouth, and Throat: oral mucosa is moist. Nares patent. Cardiovascular: Regular Rate and Rhythm Respiratory: Bilateral rhonchi present Back: non-tender GI: Obese and none Musculoskeletal: The patient has no evidence of calf tenderness, no pitting edema, symmetrical pulses noted bilaterally Neurological: A&O, normal speech Psychiatric: Cooperative Constitutional Vital Signs, click to edit/add: Last Vital Signs Temp 98.3 F 04/08/24 11:22 Pulse 59 L 04/08/24 12:40 Resp 25 H 04/08/24 12:40 Pulse Ox 94 L 04/08/24 12:40 O2 Del Method Room Air 04/08/24 11:41 Course Vital Signs Vital signs: Vital Signs Temperature 98.3 F 04/08/24 11:22 Pulse Rate 62 04/08/24 11:22 Respiratory Rate 24 H 04/08/24 11:22 Pulse Oximetry 95 04/08/24 11:22 Oxygen Delivery Method Room Air 04/08/24 11:22 Temperature 98.3 F 04/08/24 11:22 Pulse Rate 59 L 04/08/24 12:40 Respiratory Rate 25 H 04/08/24 12:40 Pulse Oximetry 94 L 04/08/24 12:40 Oxygen Delivery Method Room Air 04/08/24 11:41 MDM - SOB/Dyspnea MDM Narrative Medical decision making narrative: The patient has pulmonary vascular congestion on her x-ray and an elevated BNP. She was given IV Lasix. She reports no history of any CHF. She also tested positive for COVID which might be an incidental finding because she has had a cough for the last month and has not had a COVID test in that time. There is no evidence of pneumonia. She is being admitted. Treatment diagnosis and disposition were discussed with the patient. Differential Diagnosis Differential diagnosis: Likely acute exacerbation of chronic obstructive airways disease, congestive heart failure, community acquired pneumonia and other (COVID, influenza) Lab Data Attestation: I reviewed the patient's lab results. Labs: Lab Results 04/08/24 Range/Units 11:35 WBC 7.5 (4.0-11.0) 10^3/uL RBC 3.96 L (4.20-5.40) 10^6/uL Hgb 10.7 L (12.0-16.0) g/dL Hct 35.1 L (36.0-48.0) % MCV 88.6 (81.0-99.0) fL MCH 27.0 (26.7-34.0) pg MCHC 30.5 (29.9-35.2) g/dL RDW 14.6 (11.0-15.0) % Plt Count 212 (150-450) 10^3/uL MPV 10.9 (9.5-13.5) fL Neut % (Auto) 72.3 (43.0-75.0) % Lymph % (Auto) 14.5 L (20.5-60.0) % [place] % (Auto) 11.2 (1.7-12.0) % Eos % (Auto) 1.2 (0.9-7.0) % Baso % (Auto) 0.3 (0.2-2.0) % Neut # (Auto) 5.4 (1.4-6.5) 10^3/uL Lymph # (Auto) 1.1 L (1.2-3.8) 10^3/uL [place] # (Auto) 0.8 (0.3-0.8) 10^3/uL Eos # (Auto) 0.1 (0.0-0.7) 10^3/uL Baso # (Auto) 0.0 (0.0-0.1) 10^3/uL Abs Immat Gran (auto) 0.04 H (0.00-0.03) 10^3/uL Imm/Tot Granulo (auto) 0.5 (0.0-0.5) % Sodium 143 (136-145) mmol/L Potassium 4.0 (3.5-5.1) mmol/L Chloride 105 (98-107) mmol/L Carbon Dioxide 33.4 H (21.0-32.0) mmol/L Anion Gap 8.6 BUN 13.0 (7.0-18.0) mg/dL Creatinine 1.30 H (0.55-1.02) mg/dL Est GFR ( Amer) 51 L (>=60 mL/min/1.73m^2) Est GFR (Non-Af Amer) 42 L (>=60 mL/min/1.73m^2) BUN/Creatinine Ratio 10.0 Glucose 98 (74-106) mg/dL Calcium 9.3 (8.5-10.1) mg/dL Troponin I High Sens 18.7 (4.0-51.3) pg/mL NT-Pro-B Natriuret Pep 3427.0 H* (<=900.0) pg/mL Influenza Type A Ag Negative Influenza Type B Ag Negative SARS-CoV-2 Ag (CV2AG) Positive A (NEGATIVE) Imaging Data Chest x-ray: Radiologist's impression: ITS Impressions Chest X-Ray 04/08/24 11:28 IMPRESSION: Pulmonary vascular congestion Electronically authenticated by: LY MIRELES Date: 04/08/2024 11:49 ECG Data Attestation: I personally reviewed and interpreted this ECG as follows: (EKG on my interpretation shows sinus rhythm with a rate of 58 and artifact) Critical Care Time Critical Care Time Critical Care Time: Yes Total Critical Care Time: 35 Attestation: Due to the high probability of sudden and clinically significant deterioration in the patient's condition he/she required the highest level of my preparedness to intervene urgently I provided critical care time including documentation time, medication orders and management, reevaluation, vital sign assessment, ordering and reviewing of lab tests, ordering and reviewing of x-ray studies, and admission orders. Aggregate critical care time is 35 minutes including only time during which I was engaged in work directly related to his/her care and did not include time spent treating other patients simultaneously. Discharge Plan Discharge Chief Complaint: Shortness of Breath/Dyspnea Clinical Impression: CHF (congestive heart failure) Patient Disposition: Admitted as Observation Time of Disposition Decision: 13:49 Condition: Fair
--- OUTSIDE RECORDS SUMMARY | 2024-04-08 11:31 | XMS_ITS | CCD ---
Author Organization [facility] Care Team Providers Care Entry Level Sales Consultant Name Role Phone Tanja, Leda Unavailable Unavailable Unavailable Unavailable Unavailable Unavailable Unavailable Unavailable Tanja, Leda Unavailable Unavailable Tanja, Leda Unavailable Unavailable Unavailable Unavailable Unavailable Heath Kirkpatrick Attending Gisselle vailable Heath Kirkpatrick Referring Gisselle vailable Rumschlag, Mignon Primary Care Provider [phone] TIM SHARMA Referring Unavailab le RUMSCHLAG, MIGNON Primary Care Unavailable TIM SHARMA Referring Unavailab le RUMSCHLAG, MIGNON Primary Care Unavailable TIM SHARMA Referring Unavailab le RUMSCHLAG, MIGNON Primary Care Unavailable Tanja CAD DEVELOPER, Leda Unavailable NICOLE, DR VU Novoa Attending Unavailable NICOLE, DR VU Novoa Admitting Unavailable [facility] Primary Care Unavailable LIYAH, DR EBEN Couch Consulting Unavailabl e SHEY, DR FRIEDA Tobar Consulting Unavailabl e JULISSA, DR LO Hdz Consulting Unavailable NICOLE, DR VU Novoa Consulting Unavailable MARKER, DR KHAN Consulting Unavailable NANCI BEEBE Attending Unavailable NANCI BEEBE Admitting Unavailable JULISSA, DR LO Hdz Consulting Unavailable [facility] Primary Care Unavailable NANCI BEEBE Consulting Unavailable QUYNH ARCHER Attending Unavailable QUYNH ARCHER Admitting Unavailable [facility] Primary Care Unavailable QUYNH ARCHER Consulting Unavailable [...] Provider Vu Rivera MD Primary Care Provider [phone] Erica Pompa NP Unavailable [phone] SVEN HIZAClau Garcia Referring Unavailable RASHAAD BLACKMAN Attending Unavailab le ELIZABETH HI I Attending Unavailable Allergies Allergy Classification Reported Allergen(s) Allergy Type Date of Onset Reaction(s) Facility (20 sources) codeine; Translations: [Codeine] Drug Allergy 01-19-20 12 Nausea And Vomiting, Vomiting, GI intolerance [facility] (4 sources) pregabalin; Translations: [Lyrica] Drug Allergy [facility] (4 sources) sulfamethoxazole / trimethoprim; Translations: [Bactrim] Drug Allergy [facility] (4 sources) -No Environmental Allergies; Translations: [-No Environmental Allergies] Allergy to substance (disorder) [facility] (2 sources) -No Known Food Allergies Allergy to substance (disorder) [facility] (3 sources) NSAIDs Propensity to adverse reactions to drug 02-24-20 15 Other (See Comments) [place], [place] (15 sources) pregabalin; Translations: [PREGABALIN] Drug Allergy 01-19-20 12 Other (See Comments), Unknown [place], [place] (15 sources) Sulfamethoxazole / Trimethoprim; Translations: [SULFAMETHOXAZOLE-T RIMETHOPRIM] Drug Allergy 11-15-19 16 Hives [place] (1 source) pregabalin Drug Allergy 12-31-19 22 [facility] (1 source) Sulfamethoxazole / Trimethoprim Drug Allergy 04-15-20 22 [facility] Medications Current Medications Medication Drug Class(es) Dates Sig (Normalized) Sig (Original) acetaminophen 325 mg oral tablet (3 sources) take 2 tablets by mouth every four hours as needed for pain acetaminophen (TYLENOL) 325 MG tablet Take 650 mg by mouth every 4 hours as needed for Pain 0 Active [id number] 200 actuat albuterol 0.09 mg/actuat metered dose [...] Start: 05-19-2018 End: 05-19-2018 VENTOLIN HFA 90MCG/ACTUAT AR SC 05/19/2018 - 05/19/2018 Provider: take 2 [...] 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) Take 1 tablet (1 mg total) by mouth daily. 30 tablet 3 01/15/2024 Active busPIRone hydrochloride 15 mg oral tablet (10 sources) Start : 11-01 End: 01-28 take 1 tablet by mouth once busPIRone (Buspar) 15 MG tablet Indications: ARSH (generalized anxiety disorder) ([facility]) Take 1 tablet (15 mg) by mouth [...] CALCIUM 600 600 mg calcium(1 ,500 MG) [facility] 09/14/2017 - 09/14/2017 Provider: calcium carbonate 1250 [...] sources) Provitamin D2 Compound Start: 07-19-2018 Ergocalciferol [id number] Oral Capsule, conventional 07/19/2018 Provider: Start: 09-14-2017 take 1 capsule by [facility] every week Vitamin D2 50,000 unit [...] 07/12/2018 - 07/20/2018 Provider: Leda Agrawal CNP Yrbdmyfrgys-Ztgfvloyj-Mzhwjd (Trelegy Ellipta) 200-62.5-25 MCG/ACT aerosol powder (4 sources) Start: 11-02-2023 take 1 puff(s) by inhalation once daily Pxkwhkaqkdg-Mraicushe-Ksvmtw (Trelegy Ellipta) 200-62.5-25 MCG/ACT aerosol powder Indications: Chronic obstructive pulmonary disease, unspecified COPD type ([facility]) Inhale 1 puff Daily 28 each 3 11/02/2023 Active gabapentin 600 mg oral table t (7 sources) Anti- epile ptic Agent Start: 07-19-2018 Gabapentin 600MG Oral Tablet 07/19/2018 Provider: Start: 05-19-2018 End: 05-19-2018 GABAPENTIN 300 mg MISC 05/19 - 05/19/2018 Provider: Start: 02-13-2018 End: 02-13-2018 Gabapentin 600MG OR TABS - 02/13/2018 Provider: Start: 09-26-2017 take 1 capsule by mo sdh three times daily gabapentin 300 mg oral [...] Provider: Start: 03-13-2018 take 1 capsule by [facility] twice daily hydroxyzine pamoate 50 mg oral [...] Start: 05-19-2018 End: 05-19-2018 TRAMADOL 50 mg [facility] 05/19/19 - 05/19/2018 Provider: Start: 11-14-2017 take 1 tablet by jayson th every eight hours as needed for pain tramadol 50 mg oral tablet 11/14/2017 take 1 tablet (50 mg) by oral route every 8 hours as needed for chronic back pain / osteoarthritis (M51.36/M19.90) Start: 11-14-2017 End: 11-14-2017 TRAMADOL 50 mg [facility] 11/15/19 - 11/14/2017 Provider: take 1 tablet by jayson th three times daily as needed tramadol 50 mg oral tablet take 1 tablet by oral route 3 times a day as needed traZODone hydrochloride 100 mg oral tablet (6 sources) Serotonin Reuptake Inhibitor Start: 07-19-2018 traZODone HCl 100MG Oral Tablet 07/19/2018 Provider: Start: 05-19-2018 End: 05-19-2018 TRAZODONE 100 mg [facility] 2018 - 05/19/2018 Provider: Start: 03-13-2018 take [...] Start: 02-13-2018 End: 02-13-2018 CLINDAMYCIN HCL 300MG [facility] 02/13/2018 - 02/13/2018 Provider: Start: 02-13-2018 End: [...] 10-17-2023 Episodic Other aftercare (4 sources) Other long-term (current) drug therapy; Translations: [OTH CARE HOME CURRENT DRUG THERAPY] Onset: 2 Episodic Other aftercare (3 sources) 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 Daniels Result: left voicemail to reschedule Normal [facility] BASIC METABOLIC PANLon 01-21 Anion gap [Moles/Vol] 9 mmol/L Normal 5-15 [facility] Comment on above: Performed By: #### C BCA, CMP, 34556-8 #### [facility] ([id number]) [address] [place] [address] 75779 Calcium [Mass/Vol] 9.5 mg/dL Normal 8.5-10.5 [facility] Comment on above: Performed By: #### C BCA, CMP, 69926-4 #### [facility] ([id number]) [address] [place] [address] 08878 Chloride [Moles/Vol] 101 mmol/L Normal 98-109 [facility] Comment on above: Performed By: #### C BCA, CMP, 07983-4 #### [facility] ([id number]) [address] [place] [address] 29733 CO2 [Moles/Vol] 31 mmol/L Normal 22-32 [facility] Comment on above: Performed By: #### C BCA, CMP, 92157-6 #### [facility] ([id number]) [address] [place] [address] 20524 Creatinine [Mass/Vol] 1.63 mg/dL High 0.40-1.00 [facility] Comment on above: Result Comment: METH OD TRACEABLE TO IDMS STANDARD Performed By: #### C BCA, CMP, 63564-0 #### [facility] ([id number]) [address] [place] [address] 06387 GFR/1.73 sq M.predicted among non-blacks MDRD (S/P/Bld) [Vol rate/Area] 36 mL/min/{1.73_m2} Low >59 [facility] Comment on above: Result Comment: Reported eGFR is based on the CKD-EPI 2020 equation that does not use a race coefficient. Performed By: #### C VIRGILIO [facility] [address] [address], 39786-0 #### [facility] ([id number]) [address] [place] [address] 21867 Glucose [Mass/Vol] 84 mg/dL Normal 65-99 [facility] Comment on above: Performed By: #### C VIRGILIO [facility] [address], #### [facility] ([id number]) [address] [place] [address] 52582 Potassium [Moles/Vol] 4.3 mmol/L Normal 3.5-5.0 [facility] Comment on above: Performed By: #### C VIRGILIO [facility] [address] [address], 55158-4 #### [facility] ([id number]) [address] [place] [address] 88199 Sodium [Moles/Vol] 141 mmol/L Normal 134-146 [facility] Comment on above: Performed By: #### C VIRGILIO [facility], 48556-2 #### [facility] ([id number]) [address] [place] [address] 55575 Urea nitrogen [Mass/Vol] 34 mg/dL High 5-23 [facility] Comment on above: Performed By: #### C VIRGILIO [facility], 55082-5 #### [facility] ([id number]) [address] [place] [address] 36327 BASIC METABOLIC PANLon 01-11 Anion gap [Moles/Vol] 12 mmol/L Normal 5-15 [facility] Comment on above: Performed By: #### 8 9579-7 #### [facility] ([id number]) [address] [place] [address] 91452 Calcium [Mass/Vol] 9.4 mg/dL Normal 8.5-10.5 [facility] Comment on above: Performed By: #### 8 9579-7 #### [facility] ([id number]) [address] [place] [address] 34720 Chloride [Moles/Vol] 104 mmol/L Normal 98-109 [facility] Comment on above: Performed By: #### 8 9579-7 #### [facility] ([id number]) [address] [place] [address] 25028 CO2 [Moles/Vol] 28 mmol/L Normal 22-32 [facility] Comment on above: Performed By: #### 8 9579-7 #### [facility] ([id number]) [address] [place] [address] 01031 Creatinine [Mass/Vol] 1.22 mg/dL High 0.40-1.00 [facility] Comment on above: Result Comment: METH OD TRACEABLE TO IDMS STANDARD Performed By: #### 8 9579-7 #### [facility] ([id number]) [address] [place] [address] 45301 GFR/1.73 sq M.predicted among non-blacks MDRD (S/P/Bld) [Vol rate/Area] 51 mL/min/{1.73_m2} Low >59 [facility] Comment on above: Result Comment: Reported eGFR is based on the CKD-EPI 2020 equation that does not use a race coefficient. Performed By: #### 8 9579-7 #### [facility] ([id number]) [address] [place] [address] 08671 Glucose [Mass/Vol] 100 mg/dL High 65-99 [facility] Comment on above: Performed By: #### 8 9579-7 #### [facility] ([id number]) [address] [place] [address] 82890 Potassium [Moles/Vol] 3.8 mmol/L Normal 3.5-5.0 [facility] Comment on above: Performed By: #### 8 9579-7 #### [facility] ([id number]) [address] [place] [address] 51602 Sodium [Moles/Vol] 144 mmol/L Normal 134-146 [facility] Comment on above: Performed By: #### 8 9579-7 #### [facility] ([id number]) [address] [place] [address] 12450 Urea nitrogen [Mass/Vol] 17 mg/dL Normal 5-23 [facility] Comment on above: Performed By: #### 8 9579-7 #### [facility] ([id number]) [address] [place] [address] 83771 COMPLETE BLOOD COUNT 01-11 Erythrocyte distribution width (RBC) [Ratio] 16.7 % High 11.5-15.0 [facility] Comment on above: Performed By: #### 8 9579-7 #### [facility] ([id number]) [address] [place] [address] 29405 Hematocrit (Bld) [Volume fraction] 33.6 % Low 35-47 [facility] Comment on above: Performed By: #### 8 9579-7 #### [facility] ([id number]) [address] [place] [address] 70976 Hemoglobin (Bld) [Mass/Vol] 11.2 g/dL Low 11.7-15.5 [facility] Comment on above: Performed By: #### 8 9579-7 #### [facility] ([id number]) [address] [place] [address] 06337 MCH (RBC) [Entitic mass] 28.8 pg Normal 27-34 [facility] Comment on above: Performed By: #### 8 9579-7 #### [facility] ([id number]) [address] [place] [address] 99337 MCHC (RBC) [Mass/Vol] 33.3 g/dL Normal 32-36 [facility] Comment on above: Performed By: #### 8 9579-7 #### [facility] ([id number]) [address] [place] [address] 14305 MCV (RBC) [Entitic vol] 87 fL Normal 80-100 [facility] Comment on above: Performed By: #### 8 9579-7 #### [facility] ([id number]) [address] [place] [address] 39303 Platelet mean volume (Bld) [Entitic vol] 9.7 fL Normal 7-12 [facility] Comment on above: Performed By: #### 8 9579-7 #### [facility] ([id number]) [address] [place] [address] 05414 Platelets (Bld) [#/Vol] 268 10*3/uL Normal 150-450 [facility] Comment on above: Performed By: #### 8 9579-7 #### [facility] ([id number]) [address] [place] [address] 21177 RBC COUNT 3.88 X10E12/L Normal 3.80-5.20 [facility] Comment on above: Performed By: #### 8 9579-7 #### [facility] ([id number]) [address] [place] [address] 11631 WBC (Bld) [#/Vol] 8.8 10*3/uL Normal 4.0-11.0 [facility] Comment on above: Performed By: #### 8 9579-7 #### [facility] ([id number]) [address] [place] [address] [place] [address] Creatinine (U) [Mass/Vol]on 01-12-2024 URINE CREATININE,RDM 107.95 mg/dL Normal [facility] Comment on above: Performed By: #### Shahla POOLE CMP, 44505-6 #### [facility] ([id number]) [address] [place] [address] 28442 HBV core Ab [place] Qlon 01-12-20 ANTI HBc Negative Normal NEG [facility] Comment on above: Performed By: #### C EDEL POOLE, #### [facility] ([id number]) [address] [place] [address] 29778 HBV surface Ab IA Qnon 01-11 Anti HBs quant. <8.00 Normal [facility] Comment on above: Result Comment: Vacc inated: >=12mIU/mL, Positive (Immune) Unvaccinated: <8mIU/mL, Negative (Not Immune) 8-11.99 mIU/mL: Indeterminate, (Considered Not Immune) Performed By: #### C VIRGILIO [facility], 98735-6 #### [facility] ([id number]) [address] [place] [address] 06465 HBV surface Ag IA Qlon 01-11 HEPATITIS B SURF AG Negative Normal NEG [facility] Comment on above: Performed By: #### C VIRGILIO [facility] [facility], #### [facility] ([id number]) [address] [place] [address] 76452 MAGNESIUMon 01-12-2024 Magnesium [Mass/Vol] 1.6 mg/dL Low 1.8-2.6 [facility] Comment on above: Performed By: #### 8 9579-7 #### [facility] ([id number]) [address] [place] [address] 58452 PHOSPHORUSon 01-12-2024 Phosphate [Mass/Vol] 3.6 mg/dL Normal 2.4-4.9 [facility] Comment on above: Performed By: #### 8 9579-7 #### [facility] ([id number]) [address] [place] [address] 57890 PROTEIN CREAT RATIOon 2023 RANDOM URINE PROTEIN 4520 mg/L High <120 [facility] Comment on above: Performed By: #### C VIRGILIO [facility] [facility], #### [facility] ([id number]) [address] [place] [address] 53929 U/PRO/VINYL TOP INSTALLER RATIO CALC 4.15 High <0.2 [facility] Comment on above: Result Comment: Neph rotic Syndrome is associated with ratios >3.5 Performed By: #### C VIRGILIO [facility], 70437-2 #### [facility] ([id number]) [address] [place] [address] 71086 URINE CREATININE,RDM 108.96 mg/dL Normal Pr [facility] Comment on above: Performed By: #### Shahla POOLE [facility], 55161-2 #### [facility] ([id number]) [address] [place] [address] 95251 Parathyrin.intact [Mass/Vol] on 01-12-2024 PTH INTACT 69 pg/mL Normal 12-88 [facility] Comment on above: Performed By: #### C VIRGILIO [facility], #### [facility] ([id number]) [address] [place] [address] 49778 Protein (U) [Mass/Vol]on RANDOM URINE PROTEIN 4560 mg/L High <120 [facility] Comment on above: Performed By: #### C VIRGILIO [facility], 04351-3 #### [facility] ([id number]) [address] [place] [address] 94915 URINALYSISon 01-12-2024 Bilirubin Ql (U) Negative Normal NEG [facility] Comment on above: Performed By: #### C VIRGILIO, CMP, #### [facility] ([id number]) [address] [place] [address] 11877 BLOOD/HGB Small Abnormal NEG [facility] Comment on above: Performed By: #### C VIRGILIO, CMP, #### [facility] ([id number]) [address] [place] [address] [place] [address] Color (U) YELLOW Normal YELLOW [facility] Comment on above: Performed By: #### C BCA, CMP, #### [facility] ([id number]) [address] [place] [address] 79292 Glucose Ql (U) Negative Normal NEG [facility] Comment on above: Performed By: #### C VIRGILIO, CMP, #### [facility] ([id number]) [address] [place] [address] [place] [address] Hyaline casts LM Ql (Urine sed) 1 /lpf Normal 0-2 [facility] Comment on above: Performed By: #### C VIRGILIO, CMP, #### [facility] ([id number]) [address] [place] [address] [place] [address] Ketones Ql (U) Negative Normal NEG [facility] Comment on above: Performed By: #### C BCA, CMP, #### [facility] ([id number]) [address] [place] [address] [place] [address] Leukocyte esterase Test strip Ql (U) Negative Normal NEG [facility] Comment on above: Performed By: #### C VIRGILIO, CMP, #### [facility] ([id number]) [address] [place] [address] [place] [address] MUCOUS PRESENT Abnormal NONE [facility] Comment on above: Performed By: #### C VIRGILIO, CMP, #### [facility] ([id number]) [address] [place] [address] 67730 Nitrite Ql (U) Negative Normal NEG [facility] Comment on above: Performed By: #### C EDEL POOLE, #### [facility] ([id number]) [address] [place] [address] 38530 pH (U) 6.5 [pH] Normal 5.0-8.5 [facility] Comment on above: Performed By: #### C EDEL POOLE, #### [facility] ([id number]) [address] [place] [address] 36997 Protein Ql (U) 300 mg/dL Abnormal NEG [facility] Comment on above: Performed By: #### Shahla POOLE CMP, #### [facility] ([id number]) [address] [place] [address] 03741 R.B.CELLS 0 /hpf Normal 0-5 [facility] Comment on above: Performed By: #### Shahla POOLE [facility], #### [facility] ([id number]) [address] [place] [address] 34135 Specific gravity (U) [Rel density] 1.015 Normal 1.003-1.035 [facility] Comment on above: Performed By: #### Shahla POOLE CMP, #### [facility] ([id number]) [address] [place] [address] 01903 SQUAMOUS EPITHELIUM 1 /hpf Normal 0-5 [facility] Comment on above: Performed By: #### Shahla POOLE CMP, #### [facility] ([id number]) [address] [place] [address] 70695 TURBIDITY CLEAR Normal CLEAR [facility] Comment on above: Performed By: #### Shahla POOLE CMP, #### [facility] ([id number]) [address] [place] [address] Urobilinogen (U) [Mass/Vol] mg/dL Normal <1.1 [facility] Comment on above: Performed By: #### Shahla POOLE [facility], 84496-3 #### [facility] ([id number]) [address] [place] [address] 75509 W.B.CELLS 2 /hpf Normal 0-5 [facility] Comment on above: Performed By: #### Shahla POOLE [facility], 511[address]-7 #### [facility] ([id number]) [address] [place] [address] 20030 Vitamin D+Metabolites [Mass/ Vol]on 01-12-2024 VITAMIN D 25 HYD TOT 23.5 ng/mL Low 30-100 [facility] Comment on above: Result Comment: Vitamin D status 25 [place] Vitamin D Deficiency <20 ng/mL Insufficiency 20-29 ng/mL Sufficiency 30-100 ng/mL Toxicity >100 ng/mL NOTE: A pediatric reference range has not been established by the early childhood director of this kit. The [place] [employer] recommends a Vitamin D level of = or >20ng/mL in infants and children. Performed By: #### Shahla POOLE [facility], #### [facility] ([id number]) [address] [place] [address] COMPLETE BLOOD COUNTon 12-18 Erythrocyte distribution width (RBC) [Ratio] 16.7 % High 11.5-15.0 [facility] Comment on above: Performed By: #### Shahla POOLE CMP, , 2777-1, 1987- #### [facility] ([id number]) [address], [address] [place] [address] Hematocrit (Bld) [Volume fraction] 30.1 % Low 35-47 [facility] Comment on above: Performed By: #### C VIRGILIO CMP, , 2776-04, 1987-08 #### [facility] ([id number]) [address], [address] [place] [address] Hemoglobin (Bld) [Mass/Vol] 9.6 g/dL Low 11.7-15.5 [facility] Comment on above: Performed By: #### C VIRGILIO, CMP, , 2776-04, 1987-08 #### [facility] ([id number]) [address], [address] [place] [address] MCH (RBC) [Entitic mass] 27.3 pg Normal 27-34 [facility] Comment on above: Performed By: #### Shahla POOLE, CMP, , 2776-04, 1987-08 #### [facility] ([id number]) [address], [address] [place] [address] MCHC (RBC) [Mass/Vol] 32.0 g/dL Normal 32-36 [facility] Comment on above: Performed By: #### Shahla BCA, CMP, , 2776-04, 1987-08 #### [facility] ([id number]) [address], [address] [place] [address] MCV (RBC) [Entitic vol] 86 fL Normal 80-100 [facility] Comment on above: Performed By: #### Shahla BCA, CMP, , 2776-04, 1987-08 #### [facility] ([id number]) [address], [address] [place] [address] Platelet mean volume (Bld) [Entitic vol] 9.1 fL Normal 7-12 [facility] Comment on above: Performed By: #### Shahla BCA, CMP, , 2776-04, 1987-08 #### [facility] ([id number]) [address], [address] [place] [address] Platelets (Bld) [#/Vol] 361 10*3/uL Normal 150-450 [facility] Comment on above: Performed By: #### C BCA, CMP, , 2776-04, 1987-08 #### [facility] ([id number]) [address], [address] [place] [address] RBC COUNT 3.52 X10E12/L Low 3.80-5.20 [facility] Comment on above: Performed By: #### C BCA, CMP, , 2776-04, 1987-08 #### [facility] ([id number]) [address], [address] [place] [address] WBC (Bld) [#/Vol] 8.2 10*3/uL Normal 4.0-11.0 [facility] Comment on above: Performed By: #### C BCA, CMP, , 2776-04, 1987-08 #### [facility] ([id number]) [address] [place] [address] COMPREHENSIVE METABOLIC PANE Phu 12-19-2023 Albumin [Mass/Vol] 3.4 g/dL Normal 3.2-5.3 [facility] Comment on above: Performed By: #### C BCA, CMP, , 2776-04, 1987-08 #### [facility] ([id number]) [address], [address] [place] [address] ALP [Catalytic activity/Vol] 60 U/L Normal 39-130 [facility] Comment on above: Performed By: #### C BCA, CMP, , 2776-04, 1987-08 #### [facility] ([id number]) [address], [address] [place] [address] ALT [Catalytic activity/Vol] 12 U/L Normal 0-31 [facility] Comment on above: Performed By: #### C BCA, CMP, , 2776-04, 1987-08 #### [facility] ([id number]) [address], [address] [place] [address] Anion gap [Moles/Vol] 9 mmol/L Normal 5-15 [facility] Comment on above: Performed By: #### C BCA, CMP, , 2776-04, 1987-08 #### [facility] ([id number]) [address], [address] [place] [address] AST [Catalytic activity/Vol] 13 U/L Normal 0-41 [facility] Comment on above: Performed By: #### C BCA, CMP, , 2776-04, 1987-08 #### [facility] ([id number]) [address], [address] [place] [address] Bilirubin [Mass/Vol] 0.4 mg/dL Normal 0.3-1.2 [facility] Comment on above: Performed By: #### C BCA, CMP, , 2776-04, 1987-08 #### [facility] ([id number]) [address], [address] [place] [address] Calcium [Mass/Vol] 9.5 mg/dL Normal 8.5-10.5 [facility] Comment on above: Performed By: #### C BCA, CMP, , 2776-04, 1987-08 #### [facility] ([id number]) [address], [address] [place] [address] Chloride [Moles/Vol] 105 mmol/L Normal 98-109 [facility] Comment on above: Performed By: #### C BCA, CMP, , 2776-04, 1987-08 #### [facility] ([id number]) [address], [address] [place] [address] CO2 [Moles/Vol] 28 mmol/L Normal 22-32 [facility] Comment on above: Performed By: #### C EDEL POOLE, , 2776-04, 1987-08 #### [facility] ([id number]) [address], [address] [place] [address] Creatinine [Mass/Vol] 1.23 mg/dL High 0.40-1.00 [facility] Comment on above: Result Comment: METH OD TRACEABLE TO IDMS STANDARD Performed By: #### C EDEL POOLE, , 2776-04, 1987-08 #### [facility] ([id number]) [address], [facility] [address] [place] [address] GFR/1.73 sq M.predicted among non-blacks MDRD (S/P/Bld) [Vol rate/Area] 51 mL/min/{1.73_m2} Low >59 [facility] Comment on above: Result Comment: Reported eGFR is based on the CKD-EPI 2020 equation that does not use a race coefficient. Performed By: #### C EDEL POOLE, , 2776-04, 1987-08 #### [facility] ([id number]) [address] [place] [address] Glucose [Mass/Vol] 89 mg/dL Normal 65-99 [facility] Comment on above: Performed By: #### C VIRGILIO CMP, , 2776-04, 1987-08 #### [facility] ([id number]) [address] [place] [address] Potassium [Moles/Vol] 4.9 mmol/L Normal 3.5-5.0 [facility] Comment on above: Performed By: #### C BCA, CMP, , 2776-04, 1987-08 #### [facility] ([id number]) [address], [address] [place] [address] Protein [Mass/Vol] 6.0 g/dL Normal 6.0-8.0 [facility] Comment on above: Performed By: #### C BCA, CMP, , 2776-04, 1987-08 #### [facility] ([id number]) [address], [address] [place] [address] Sodium [Moles/Vol] 142 mmol/L Normal 134-146 [facility] Comment on above: Performed By: #### C BCA, CMP, , 2776-04, 1987-08 #### [facility] ([id number]) [address], [address] [place] [address] Urea nitrogen [Mass/Vol] 21 mg/dL Normal 5-23 [facility] Comment on above: Performed By: #### C BCA, CMP, , 2776-04, 1987-08 #### [facility] ([id number]) [address], [address] [place] [address] CRP [Mass/Vol]on 12-19-2023 C REACTIVE PROTEIN 0.8 mg/dL High 0.000-0.744 [facility] Comment on above: Performed By: #### C BCA, CMP, , 2776-04, 1987-08 #### [facility] ([id number]) [address] [place] [address] ESR Photometric method (Bld) [Velocity]on 12-19-2023 ESR, ERYTHROCYTE SEDIMENTATION RATE 67 mm/h High 0-30 [facility] Comment on above: Performed By: #### C BCA, CMP, , 2776-04, 1987-08 #### [facility] ([id number]) [address], [address] [place] [address] Follow-Upon 12-19-2023 Follow-Up [id number] Mckeon 1965 F Date Provider Department Center 12/19/2023 215-ELIZABETH HI I [facility] No family history on file Level of Service:70304 [place] OFFICE/OUTPATIENT ESTABLISHED LOW MDM 20 MIN (GC) Reason for Visit and Comments: Follow-up [770722] Normal [facility] Neutrophil cytoplasmic Ab pa selvin IF (S)on 12-19-2023 c-ANCA Negative Normal Negative [facility] Comment on above: Performed By: #### C BCA, CMP, , 2776-04, 1987-08 #### [facility] ([id number]) [address], [address] [place] [address] p-ANCA Positive Abnormal Negative [facility] Comment on above: Result Comment: NOTE Positive for pANCA pattern by immunofluorescence. Suggest further testing for anti-myeloperoxidase (anti-MPO) antibodies, if clinically indicated. ADDITIONAL INFORMATION This test was developed and its performance characteristics determined by [facility] in a manner consistent with CLIA requirements. This test has not been cleared or approved by the U.S. Food and Drug Administration. Test Performed by: [place] [address] [employer] Feeder: Ledy Son Ph.D.; CLIA# [id number] Performed By: #### C BCA, CMP, , 2776-04, 1987-08 #### [facility] ([id number]) [address], [address] [place] [address] CBC AND AUTO DIFFon 11-07-19 24 ABSOLUTE BASOPHIL 0.0 X10E9/L Normal 0.0-0.2 [facility] Comment on above: Performed By: #### C BCA, CMP, , 2776-04, 1987-08 #### [facility] ([id number]) [address], [address] [place] [address] ABSOLUTE NEUTROPHIL 12.2 X10E9/L High 1.5-6.6 [facility] Comment on above: Performed By: #### C VIRGILIO CMP, , 2776-04, 1987-08 #### [facility] ([id number]) [address], [address] [place] [address] Basophils/100 WBC (Bld) 0.2 % Normal [facility] Comment on above: Performed By: #### C VIRGILIO, CMP, , 2776-04, 1987-08 #### [facility] ([id number]) [address], [address] [place] [address] Eosinophils (Bld) [#/Vol] 0.0 10*3/uL Normal 0.0-0.4 [facility] Comment on above: Performed By: #### C VIRGILIO CMP, , 2776-04, 1987-08 #### [facility] ([id number]) [address], [address] [place] [address] Eosinophils/100 WBC (Bld) 0.0 % Normal [facility] Comment on above: Performed By: #### C VIRGILIO, CMP, , 2776-04, 1987-08 #### [facility] ([id number]) [address], [address] [place] [address] Erythrocyte distribution width (RBC) [Ratio] 15.6 % High 11.5-15.0 [facility] Comment on above: Performed By: #### C VIRGILIO, CMP, , 2776-04, 1987-08 #### [facility] ([id number]) [address], [address] [place] [address] Hematocrit (Bld) [Volume fraction] 32.0 % Low 35-47 [facility] Comment on above: Performed By: #### C VIRGILIO, CMP, , 2776-04, 1987-08 #### [facility] ([id number]) [address], [address] [place] [address] Hemoglobin (Bld) [Mass/Vol] 10.4 g/dL Low 11.7-15.5 [facility] Comment on above: Performed By: #### C VIRGILIO, CMP, , 2776-04, 1987-08 #### [facility] ([id number]) [address], [facility] [address] [place] [address] Lymphocytes (Bld) [#/Vol] 0.3 10*3/uL Low 1.0-3.5 [facility] Comment on above: Performed By: #### C BCA, CMP, , 2776-04, 1987-08 #### [facility] ([id number]) [address], [facility] [address] [place] [address] Lymphocytes/100 WBC (Bld) 2.6 % Normal [facility] Comment on above: Performed By: #### Shahla BCA, CMP, , 2776-04, 1987-08 #### [facility] ([id number]) [address], [address] [place] [address] MCH (RBC) [Entitic mass] 27.6 pg Normal 27-34 [facility] Comment on above: Performed By: #### Shahla BCA, CMP, , 2776-04, 1987-08 #### [facility] ([id number]) [address], [address] [place] [address] MCHC (RBC) [Mass/Vol] 32.4 g/dL Normal 32-36 [facility] Comment on above: Performed By: #### Shahla BCA, CMP, , 2776-04, 1987-08 #### [facility] ([id number]) [address], [address] [place] [address] MCV (RBC) [Entitic vol] 85 fL Normal 80-100 [facility] Comment on above: Performed By: #### C BCA, CMP, , 2776-04, 1987-08 #### [facility] ([id number]) [address], [address] [place] [address] Monocytes (Bld) [#/Vol] 0.2 10*3/uL Normal 0-0.9 [facility] Comment on above: Performed By: #### Shahla BCA, CMP, , 2776-04, 1987-08 #### [facility] ([id number]) [address], [address] [place] [address] Monocytes/100 WBC (Bld) 1.8 % Normal [facility] Comment on above: Performed By: #### Shahla BCA, CMP, , 2776-04, 1987-08 #### [facility] ([id number]) [address], [address] [place] [address] Neutrophils/100 WBC (Bld) 95.4 % Normal [facility] Comment on above: Performed By: #### Shahla BCA, CMP, , 2776-04, 1987-08 #### [facility] ([id number]) [address] [place] [address] Platelet mean volume (Bld) [Entitic vol] 9.1 fL Normal 7-12 [facility] Comment on above: Performed By: #### Shahla BCA, CMP, , 2776-04, 1987-08 #### [facility] ([id number]) [address], [address] [place] [address] Platelets (Bld) [#/Vol] 183 10*3/uL Normal 150-450 [facility] Comment on above: Performed By: #### Shahla BCA, CMP, , 2776-04, 1987-08 #### [facility] ([id number]) [address], [address] [place] [address] RBC COUNT 3.76 X10E12/L Low 3.80-5.20 [facility] Comment on above: Performed By: #### C BCA, CMP, , 2776-04, 1987-08 #### [facility] ([id number]) [address], [address] [place] [address] WBC (Bld) [#/Vol] 12.8 10*3/uL High 4.0-11.0 [facility] Comment on above: Performed By: #### C BCA, CMP, , 2776-04, 1987-08 #### [facility] ([id number]) [address] [place] [address] COMPREHENSIVE METABOLIC PANE [facility] 11-07-2023 Albumin [Mass/Vol] 3.5 g/dL Normal 3.2-5.3 [facility] Comment on above: Performed By: #### C BCA, CMP, , 2776-04, 1987-08 #### [facility] ([id number]) [address], [address] [place] [address] ALP [Catalytic activity/Vol] 46 U/L Normal 39-130 [facility] Comment on above: Performed By: #### C BCA, CMP, , 2776-04, 1987-08 #### [facility] ([id number]) [address], [address] [place] [address] ALT [Catalytic activity/Vol] 31 U/L Normal 0-31 [facility] Comment on above: Performed By: #### C BCA, CMP, , 2776-04, 1987-08 #### [facility] ([id number]) [address], [address] [place] [address] Anion gap [Moles/Vol] 9 mmol/L Normal 5-15 [facility] Comment on above: Performed By: #### C BCA, CMP, , 2776-04, 1987-08 #### [facility] ([id number]) [address], [address] [place] [address] AST [Catalytic activity/Vol] 10 U/L Normal 0-41 [facility] Comment on above: Performed By: #### C BCA, CMP, , 2776-04, 1987-08 #### [facility] ([id number]) [address], [address] [place] [address] Bilirubin [Mass/Vol] 0.5 mg/dL Normal 0.3-1.2 [facility] Comment on above: Performed By: #### C BCA, CMP, , 2776-04, 1987-08 #### [facility] ([id number]) [address] [place] [address] Calcium [Mass/Vol] 9.1 mg/dL Normal 8.5-10.5 [facility] Comment on above: Performed By: #### C BCA, CMP, , 2776-04, 1987-08 #### [facility] ([id number]) [address], [address] [place] [address] Chloride [Moles/Vol] 104 mmol/L Normal 98-109 [facility] Comment on above: Performed By: #### C BCA, CMP, , 2776-04, 1987-08 #### [facility] ([id number]) [address], [address] [place] [address] CO2 [Moles/Vol] 26 mmol/L Normal 22-32 [facility] Comment on above: Performed By: #### C BCA, CMP, , 2776-04, 1987-08 #### [facility] ([id number]) [address], [address] [place] [address] Creatinine [Mass/Vol] 1.60 mg/dL High 0.40-1.00 [facility] Comment on above: Result Comment: METH OD TRACEABLE TO IDMS STANDARD Performed By: #### C EDEL POOLE, , 2776-04, 1987-08 #### [facility] ([id number]) [address], [address] [place] [address] GFR/1.73 sq M.predicted among non-blacks MDRD (S/P/Bld) [Vol rate/Area] 37 mL/min/{1.73_m2} Low >59 [facility] Comment on above: Result Comment: Reported eGFR is based on the CKD-EPI 2020 equation that does not use a race coefficient. Performed By: #### C EDEL POOLE, , 2776-04, 1987-08 #### [facility] ([id number]) [address], [address] [place] [address] Glucose [Mass/Vol] 119 mg/dL High 65-99 [facility] Comment on above: Performed By: #### C EDEL POOLE, , 2776-04, 1987-08 #### [facility] ([id number]) [address], [address] [place] [address] Potassium [Moles/Vol] 5.2 mmol/L High 3.5-5.0 [facility] Comment on above: Performed By: #### C EDEL POOLE, , 2776-04, 1987-08 #### [facility] ([id number]) [address] [place] [address] Protein [Mass/Vol] 5.3 g/dL Low 6.0-8.0 [facility] Comment on above: Performed By: #### C EDEL POOLE, , 2776-04, 1987-08 #### [facility] ([id number]) [address], [address] [place] [address] Sodium [Moles/Vol] 139 mmol/L Normal 134-146 [facility] Comment on above: Performed By: #### C BCA, CMP, 67889-9, 2776-04, 1987-08 #### [facility] ([id number]) [address] [place] [address] Urea nitrogen [Mass/Vol] 52 mg/dL High 5-23 [facility] Comment on above: Performed By: #### C BCA, CMP, 64488-7, 2776-04, 1987-08 #### [facility] ([id number]) [address] [place] [address] Follow-Upon 11-07-2023 Follow-Up [id number] Mckeon 1965 F Date Provider Department Center 11/07/2023 1233-CAMPOS [facility] No family history on file Level of Service:28840 [place] OFFICE/OUTPATIENT ESTABLISHED MOD MDM 30 MIN () Reason for Visit and Comments: Follow-up [274261] - [facility] follow up Concerns: States was told to due TB test; no further concerns Normal [facility] M. tuberculosis stim IFN-g p tiffanie (Bld)on 11-07-2023 Mitogen minus Nil Result 0.07 IU/mL Normal [facility] Nil Result 0.01 IU/mL Normal [facility] Comment on above: Result Comment: NOTE Test Performed by: [address] [address] [employer]er Feeder: Ledy Son Ph.D.; CLIA# [id number] QuantiFERON-Tb Gold Plus Result Indeterminate Abnormal Negative [facility] Comment on above: Result Comment: NOTE Indeterminate due to a low interferon-gamma level in the mitogen (positive control) tube. This may occur due to a low lymphocyte count, reduced lymphocyte activity or inability of the patient's lymphocytes to generate interferon-gamma. The reference range for the 'Mitogen minus Nil Result' is >=0.5 IU/mL. TB1 Ag minus Nil Result 0.00 IU/mL Normal [facility] TB2 Ag minus Nil Result 0.00 IU/mL Normal [facility] Orders Onlyon 11-06-2023 Orders Only [id number] Dov,Ter ri L 1965 F Date Provider Department Center 11/06/2023 1644-PROSHA JANE [facility] No family history on file Normal [facility] Orders Only [id number] Dov,Ter ri L 1965 F Date Provider Department [place] 11/06/2023 190-ROGER WRAY [facility] No family history on file Normal [facility] Orders Only [id number] Dov,Ter ri L 1965 F Date Provider Department [place] 11/06/2023 215-ELIZABETH HI I [facility] No family history on file Normal [facility] BASIC METABOLIC PANLon 11-01 Anion gap [Moles/Vol] 9 mmol/L Normal 5-15 [facility] Comment on above: Performed By: #### 8 9579-7 #### [facility] ([id number]) [address] [place] [address] Calcium [Mass/Vol] 8.5 mg/dL Normal 8.5-10.5 [facility] Comment on above: Performed By: #### 8 9579-7 #### [facility] ([id number]) [address] [place] [address] Chloride [Moles/Vol] 108 mmol/L Normal 98-109 [facility] Comment on above: Performed By: #### 8 9579-7 #### [facility] ([id number]) [address] [place] [address] CO2 [Moles/Vol] 24 mmol/L Normal 22-32 [facility] Comment on above: Performed By: #### 8 9579-7 #### [facility] ([id number]) [address] [place] [address] Creatinine [Mass/Vol] 1.59 mg/dL High 0.40-1.00 [facility] Comment on above: Result Comment: METH OD TRACEABLE TO IDMS STANDARD Performed By: #### 8 9579-7 #### [facility] ([id number]) [address] [place] [address] GFR/1.73 sq M.predicted among non-blacks MDRD (S/P/Bld) [Vol rate/Area] 37 mL/min/{1.73_m2} Low >59 [facility] Comment on above: Result Comment: Reported eGFR is based on the CKD-EPI 2020 equation that does not use a race coefficient. Performed By: #### 8 9579-7 #### [facility] ([id number]) [address] [place] [address] Glucose [Mass/Vol] 109 mg/dL High 65-99 [facility] Comment on above: Performed By: #### 8 9579-7 #### [facility] ([id number]) [address] [place] [address] Potassium [Moles/Vol] 3.9 mmol/L Normal 3.5-5.0 [facility] Comment on above: Performed By: #### 8 9579-7 #### [facility] ([id number]) [address] [place] [address] Sodium [Moles/Vol] 141 mmol/L Normal 134-146 [facility] Comment on above: Performed By: #### 8 9579-7 #### [facility] ([id number]) [address] [place] [address] Urea nitrogen [Mass/Vol] 40 mg/dL High 5-23 [facility] Comment on above: Performed By: #### 8 9579-7 #### [facility] ([id number]) [address] [place] [address] Orders Onlyon 11-01-2023 Orders Only [id number] Nelson L 1965 F Date Provider Department [place] 11/01/2023 Luis A-JANE STORY [facility] No family history on file [facility] Orders Onlyon 10-27-2023 Orders Only [id number] Nelson 1965 F Date Provider Department [place] 10/27/2023 [facility] 36on 10-25-2023 36 Called, left message for patient to call and make an appointment. [facility] 36 Patient was seen by inpatient rheumatology service with Dr. 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 Staff to kindly call patient to set up an appointment with Dr. Rashaad Phelan with Dr. Hi at [facility]. Patient phone number in [facility] chart H: [phone] C: [phone] Patient's address may have also changed. Normal [facility] CBC AND AUTO DIFFon 10-25-19 24 ABSOLUTE BASOPHIL 0.1 X10E9/L Normal 0.0-0.2 [facility] Comment on above: Performed By: #### C BCA, CMP, , 2776-04, 1987-08 #### [facility] ([id number]) [address] [place] [address] ABSOLUTE NEUTROPHIL 6.5 X10E9/L Normal 1.5-6.6 [facility] Comment on above: Performed By: #### C BCA, CMP, , 2776-04, 1987-08 #### [facility] ([id number]) [address], [address] [place] [address] Basophils/100 WBC (Bld) 0.6 % Normal [facility] Comment on above: Performed By: #### C BCA, CMP, , 2776-04, 1987-08 #### [facility] ([id number]) [address], [address] [place] [address] Eosinophils (Bld) [#/Vol] 0.0 10*3/uL Normal 0.0-0.4 [facility] Comment on above: Performed By: #### C BCA, [facility] [address], , 2776-04, 1987-08 #### [facility] ([id number]) [address], [address] [place] [address] Eosinophils/100 WBC (Bld) 0.4 % Normal [facility] Comment on above: Performed By: #### C VIRGILIO, [facility] [address], , 2776-04, 1987-08 #### [facility] ([id number]) [address], [facility] [address] [place] [address] Erythrocyte distribution width (RBC) [Ratio] 14.5 % Normal 11.5-15.0 [facility] Comment on above: Performed By: #### C VIRGILIO, [facility] [address], , 2776-04, 1987-08 #### [facility] ([id number]) [address] [place] [address] Hematocrit (Bld) [Volume fraction] 30.5 % Low 35-47 [facility] Comment on above: Performed By: #### C BCA, [facility] [address], , 2776-04, 1987-08 #### [facility] ([id number]) [address] [place] [address] Hemoglobin (Bld) [Mass/Vol] 10.5 g/dL Low 11.7-15.5 [facility] Comment on above: Performed By: #### C BCA, CMP, , 2776-04, 1987-08 #### [facility] ([id number]) [address], [address] [place] [address] Lymphocytes (Bld) [#/Vol] 1.4 10*3/uL Normal 1.0-3.5 [facility] Comment on above: Performed By: #### C VIRGILIO CMP, , 2776-04, 1987-08 #### [facility] ([id number]) [address], [address] [place] [address] Lymphocytes/100 WBC (Bld) 16.2 % Normal [facility] Comment on above: Performed By: #### Shahla POOLE, CMP, , 2776-04, 1987-08 #### [facility] ([id number]) [address], [facility] [address] [place] [address] MCH (RBC) [Entitic mass] 28.5 pg Normal 27-34 [facility] Comment on above: Performed By: #### Shahla POOLE CMP, , 2776-04, 1987-08 #### [facility] ([id number]) [address], [address] [place] [address] MCHC (RBC) [Mass/Vol] 34.4 g/dL Normal 32-36 [facility] Comment on above: Performed By: #### Shahla POOLE, CMP, , 2776-04, 1987-08 #### [facility] ([id number]) [address], [facility] [address] [place] [address] MCV (RBC) [Entitic vol] 83 fL Normal 80-100 [facility] Comment on above: Performed By: #### Shahla BCA, CMP, , 2776-04, 1987-08 #### [facility] ([id number]) [address], [facility] [address] [place] [address] Monocytes (Bld) [#/Vol] 0.5 10*3/uL Normal 0-0.9 [facility] Comment on above: Performed By: #### Shahla POOLE, CMP, , 2776-04, 1987-08 #### [facility] ([id number]) [address], [address] [place] [address] Monocytes/100 WBC (Bld) 5.9 % Normal [facility] Comment on above: Performed By: #### C BCA, CMP, , 2776-04, 1987-08 #### [facility] ([id number]) [address], [address] [place] [address] Neutrophils/100 WBC (Bld) 76.9 % Normal [facility] Comment on above: Performed By: #### C BCA, CMP, , 2776-04, 1987-08 #### [facility] ([id number]) [address], [address] [place] [address] Platelet mean volume (Bld) [Entitic vol] 9.1 fL Normal 7-12 [facility] Comment on above: Performed By: #### Shahla BCA, CMP, , 2776-04, 1987-08 #### [facility] ([id number]) [address], [address] [place] [address] Platelets (Bld) [#/Vol] 248 10*3/uL Normal 150-450 [facility] Comment on above: Performed By: #### Shahla BCA, CMP, , 2776-04, 1987-08 #### [facility] ([id number]) [address], [address] [place] [address] RBC COUNT 3.68 X10E12/L Low 3.80-5.20 [facility] Comment on above: Performed By: #### Shahla BCA, CMP, , 2776-04, 1987-08 #### [facility] ([id number]) [address], [address] [place] [address] RBC morphology finding Nom (Bld) REVIEWED Normal [facility] Comment on above: Performed By: #### C BCA, CMP, , 2776-04, 1987-08 #### [facility] ([id number]) [address], [address] [place] [address] WBC (Bld) [#/Vol] 8.4 10*3/uL Normal 4.0-11.0 [facility] Comment on above: Performed By: #### C BCA, CMP, , 2776-04, 1987-08 #### [facility] ([id number]) [address], [address] [place] [address] COMPREHENSIVE METABOLIC PANE Phu 10-25-2023 Albumin [Mass/Vol] 3.1 g/dL Low 3.2-5.3 [facility] Comment on above: Performed By: #### C BCA, CMP, , 2776-04, 1987-08 #### [facility] ([id number]) [address], [address] [place] [address] ALP [Catalytic activity/Vol] 35 U/L Low 39-130 [facility] Comment on above: Performed By: #### C BCA, CMP, , 2776-04, 1987-08 #### [facility] ([id number]) [address], [address] [place] [address] ALT [Catalytic activity/Vol] 8 U/L Normal 0-31 [facility] Comment on above: Performed By: #### C BCA, CMP, , 2776-04, 1987-08 #### [facility] ([id number]) [address], [address] [place] [address] Anion gap [Moles/Vol] 9 mmol/L Normal 5-15 [facility] Comment on above: Performed By: #### C BCA, CMP, , 2776-04, 1987-08 #### [facility] ([id number]) [address], [address] [place] [address] AST [Catalytic activity/Vol] 10 U/L Normal 0-41 [facility] Comment on above: Performed By: #### C BCA, CMP, , 2776-04, 1987-08 #### [facility] ([id number]) [address], [address] [place] [address] Bilirubin [Mass/Vol] 0.3 mg/dL Normal 0.3-1.2 [facility] Comment on above: Performed By: #### C BCA, CMP, , 2776-04, 1987-08 #### [facility] ([id number]) [address], [address] [place] [address] Calcium [Mass/Vol] 8.6 mg/dL Normal 8.5-10.5 [facility] Comment on above: Performed By: #### C BCA, CMP, , 2776-04, 1987-08 #### [facility] ([id number]) [address], [address] [place] [address] Chloride [Moles/Vol] 106 mmol/L Normal 98-109 [facility] Comment on above: Performed By: #### C BCA, CMP, , 2776-04, 1987-08 #### [facility] ([id number]) [address], [address] [place] [address] CO2 [Moles/Vol] 25 mmol/L Normal 22-32 [facility] Comment on above: Performed By: #### C BCA, CMP, , 2776-04, 1987-08 #### [facility] ([id number]) [address], [address] [place] [address] Creatinine [Mass/Vol] 2.12 mg/dL High 0.40-1.00 [facility] Comment on above: Result Comment: METH OD TRACEABLE TO IDMS STANDARD Performed By: #### C BCA, CMP, , 2776-04, 1987-08 #### [facility] ([id number]) [address], [address] [place] [address] GFR/1.73 sq M.predicted among non-blacks MDRD (S/P/Bld) [Vol rate/Area] 26 mL/min/{1.73_m2} Low >59 [facility] Comment on above: Result Comment: Reported eGFR is based on the CKD-EPI 2020 equation that does not use a race coefficient. Performed By: #### C BCA, CMP, , 2776-04, 1987-08 #### [facility] ([id number]) [address], [address] [place] [address] Glucose [Mass/Vol] 81 mg/dL Normal 65-99 [facility] Comment on above: Performed By: #### C BCA, CMP, , 2776-04, 1987-08 #### [facility] ([id number]) [address], [address] [place] [address] Potassium [Moles/Vol] 4.1 mmol/L Normal 3.5-5.0 [facility] Comment on above: Performed By: #### C BCA, CMP, , 2776-04, 1987-08 #### [facility] ([id number]) [address], [address] [place] [address] Protein [Mass/Vol] 4.9 g/dL Low 6.0-8.0 [facility] Comment on above: Performed By: #### C BCA, CMP, , 2776-04, 1987-08 #### [facility] ([id number]) [address], [address] [place] [address] Sodium [Moles/Vol] 140 mmol/L Normal 134-146 [facility] Comment on above: Performed By: #### C BCA, CMP, , 2776-04, 1987-08 #### [facility] ([id number]) [address], [address] [place] [address] Urea nitrogen [Mass/Vol] 58 mg/dL High 5-23 [facility] Comment on above: Performed By: #### Shahla POOLE CMP, , 2776-04, 1987-08 #### [facility] ([id number]) [address], [address] [place] [address] Calcium.ionized (Bld) [Mass/ Vol]on 10-25-2023 IONIZED CALCIUM 4.8 mg/dL Normal 4.5-5.3 [facility] Comment on above: Performed By: #### Shahla POOLE CMP, , 2776-04, 1987-08 #### [facility] ([id number]) [address], [address] [place] [address] MAGNESIUMon 10-25-2023 Magnesium [Mass/Vol] 2.1 mg/dL Normal 1.8-2.6 [facility] Comment on above: Performed By: #### Shahla POOLE, CMP, , 2776-04, 1987-08 #### [facility] ([id number]) [address], [address] [place] [address] PHOSPHORUSon 10-25-2023 Phosphate [Mass/Vol] 3.5 mg/dL Normal 2.4-4.9 [facility] Comment on above: Performed By: #### Shahla POOLE, CMP, , 2776-04, 1987-08 #### [facility] ([id number]) [address], [address] [place] [address] CBC AND AUTO DIFFon 10-24-19 24 ABSOLUTE BASOPHIL 0.0 X10E9/L Normal 0.0-0.2 [facility] Comment on above: Performed By: #### Shahla POOLE, CMP, , 2776-04, 1987-08 #### [facility] ([id number]) [address], [address] [place] [address] ABSOLUTE NEUTROPHIL 7.2 X10E9/L High 1.5-6.6 [facility] Comment on above: Performed By: #### C VIRGILIO CMP, , 2776-04, 1987-08 #### [facility] ([id number]) [address], [address] [place] [address] Basophils/100 WBC (Bld) 0.1 % Normal [facility] Comment on above: Performed By: #### C BCA, CMP, , 2776-04, 1987-08 #### [facility] ([id number]) [address], [address] [place] [address] Eosinophils (Bld) [#/Vol] 0.0 10*3/uL Normal 0.0-0.4 [facility] Comment on above: Performed By: #### C VIRGILIO, CMP, , 2776-04, 1987-08 #### [facility] ([id number]) [address], [address] [place] [address] Eosinophils/100 WBC (Bld) 0.2 % Normal [facility] Comment on above: Performed By: #### C BCA, CMP, , 2776-04, 1987-08 #### [facility] ([id number]) [address], [address] [place] [address] Erythrocyte distribution width (RBC) [Ratio] 14.7 % Normal 11.5-15.0 [facility] Comment on above: Performed By: #### C BCA, CMP, , 2776-04, 1987-08 #### [facility] ([id number]) [address], [address] [place] [address] Hematocrit (Bld) [Volume fraction] 31.4 % Low 35-47 [facility] Comment on above: Performed By: #### C BCA, CMP, , 2776-04, 1987-08 #### [facility] ([id number]) [address], [address] [place] [address] Hemoglobin (Bld) [Mass/Vol] 10.5 g/dL Low 11.7-15.5 [facility] Comment on above: Performed By: #### Shahla POOLE CMP, , 2776-04, 1987-08 #### [facility] ([id number]) [address], [address] [place] [address] Lymphocytes (Bld) [#/Vol] 3.1 10*3/uL Normal 1.0-3.5 [facility] Comment on above: Performed By: #### Shahla POOLE, CMP, , 2776-04, 1987-08 #### [facility] ([id number]) [address], [facility] [address] [place] [address] Lymphocytes/100 WBC (Bld) 27.5 % Normal [facility] Comment on above: Performed By: #### Shahla POOLE, CMP, , 2776-04, 1987-08 #### [facility] ([id number]) [address], [address] [place] [address] MCH (RBC) [Entitic mass] 28.1 pg Normal 27-34 [facility] Comment on above: Performed By: #### Shahla BCA, CMP, , 2776-04, 1987-08 #### [facility] ([id number]) [address], [address] [place] [address] MCHC (RBC) [Mass/Vol] 33.3 g/dL Normal 32-36 [facility] Comment on above: Performed By: #### Shahla BCA, CMP, , 2776-04, 1987-08 #### [facility] ([id number]) [address], [address] [place] [address] MCV (RBC) [Entitic vol] 84 fL Normal 80-100 [facility] Comment on above: Performed By: #### C BCA, CMP, , 2776-04, 1987-08 #### [facility] ([id number]) [address], [address] [place] [address] Monocytes (Bld) [#/Vol] 0.8 10*3/uL Normal 0-0.9 [facility] Comment on above: Performed By: #### Shahla BCA, CMP, , 2776-04, 1987-08 #### [facility] ([id number]) [address], [address] [place] [address] Monocytes/100 WBC (Bld) 7.6 % Normal [facility] Comment on above: Performed By: #### Shahla BCA, CMP, , 2776-04, 1987-08 #### [facility] ([id number]) [address], [address] [place] [address] Neutrophils/100 WBC (Bld) 64.6 % Normal [facility] Comment on above: Performed By: #### Shahla BCA, CMP, , 2776-04, 1987-08 #### [facility] ([id number]) [address] [place] [address] Platelet mean volume (Bld) [Entitic vol] 9.6 fL Normal 7-12 [facility] Comment on above: Performed By: #### Shahla BCA, CMP, , 2776-04, 1987-08 #### [facility] ([id number]) [address], [address] [place] [address] Platelets (Bld) [#/Vol] 304 10*3/uL Normal 150-450 [facility] Comment on above: Performed By: #### Shahla BCA, CMP, , 2776-04, 1987-08 #### [facility] ([id number]) [address], [address] [place] [address] RBC COUNT 3.73 X10E12/L Low 3.80-5.20 [facility] Comment on above: Performed By: #### C BCA, CMP, , 2776-04, 1987-08 #### [facility] ([id number]) [address], [address] [place] [address] WBC (Bld) [#/Vol] 11.2 10*3/uL High 4.0-11.0 [facility] Comment on above: Performed By: #### C BCA, CMP, , 2776-04, 1987-08 #### [facility] ([id number]) [address] [place] [address] COMPREHENSIVE METABOLIC PANE Phu 10-24-2023 Albumin [Mass/Vol] 3.2 g/dL Normal 3.2-5.3 [facility] Comment on above: Performed By: #### C BCA, CMP, , 2776-04, 1987-08 #### [facility] ([id number]) [address], [address] [place] [address] ALP [Catalytic activity/Vol] 37 U/L Low 39-130 [facility] Comment on above: Performed By: #### C BCA, CMP, , 2776-04, 1987-08 #### [facility] ([id number]) [address], [address] [place] [address] ALT [Catalytic activity/Vol] 8 U/L Normal 0-31 [facility] Comment on above: Performed By: #### C BCA, CMP, , 2776-04, 1987-08 #### [facility] ([id number]) [address], [address] [place] [address] Anion gap [Moles/Vol] 11 mmol/L Normal 5-15 [facility] Comment on above: Performed By: #### C BCA, CMP, , 2776-04, 1987-08 #### [facility] ([id number]) [address], [address] [place] [address] AST [Catalytic activity/Vol] 9 U/L Normal 0-41 [facility] Comment on above: Performed By: #### C BCA, CMP, , 2776-04, 1987-08 #### [facility] ([id number]) [address], [address] [place] [address] Bilirubin [Mass/Vol] 0.3 mg/dL Normal 0.3-1.2 [facility] Comment on above: Performed By: #### C BCA, CMP, , 2776-04, 1987-08 #### [facility] ([id number]) [address] [place] [address] Calcium [Mass/Vol] 8.7 mg/dL Normal 8.5-10.5 [facility] Comment on above: Performed By: #### C BCA, CMP, , 2776-04, 1987-08 #### [facility] ([id number]) [address] [place] [address] Chloride [Moles/Vol] 103 mmol/L Normal 98-109 [facility] Comment on above: Performed By: #### C BCA, CMP, , 2776-04, 1987-08 #### [facility] ([id number]) [address], [address] [place] [address] CO2 [Moles/Vol] 26 mmol/L Normal 22-32 [facility] Comment on above: Performed By: #### C BCA, CMP, , 2776-04, 1987-08 #### [facility] ([id number]) [address], [address] [place] [address] Creatinine [Mass/Vol] 2.33 mg/dL High 0.40-1.00 [facility] Comment on above: Result Comment: METH OD TRACEABLE TO IDMS STANDARD Performed By: #### C EDEL POOLE, , 2776-04, 1987-08 #### [facility] ([id number]) [address], [address] [place] [address] GFR/1.73 sq M.predicted among non-blacks MDRD (S/P/Bld) [Vol rate/Area] 24 mL/min/{1.73_m2} Low >59 [facility] Comment on above: Result Comment: Reported eGFR is based on the CKD-EPI 2020 equation that does not use a race coefficient. Performed By: #### C EDEL POOLE, , 2776-04, 1987-08 #### [facility] ([id number]) [address], [address] [place] [address] Glucose [Mass/Vol] 80 mg/dL Normal 65-99 [facility] Comment on above: Performed By: #### C EDEL POOLE, , 2776-04, 1987-08 #### [facility] ([id number]) [address], [address] [place] [address] Potassium [Moles/Vol] 3.9 mmol/L Normal 3.5-5.0 [facility] Comment on above: Performed By: #### C EDEL POOLE, , 2776-04, 1987-08 #### [facility] ([id number]) [address] [place] [address] Protein [Mass/Vol] 5.1 g/dL Low 6.0-8.0 [facility] Comment on above: Performed By: #### C EDEL POOLE, , 2776-04, 1987-08 #### [facility] ([id number]) [address] [place] [address] Sodium [Moles/Vol] 140 mmol/L Normal 134-146 [facility] Comment on above: Performed By: #### C BCA, CMP, , 2776-04, 1987-08 #### [facility] ([id number]) [address] [place] [address] Urea nitrogen [Mass/Vol] 67 mg/dL High 5-23 [facility] Comment on above: Performed By: #### C BCA, CMP, , 2776-04, 1987-08 #### [facility] ([id number]) [address] [place] [address] Calcium.ionized (Bld) [Mass/ Vol]on 10-24-2023 IONIZED CALCIUM 4.7 mg/dL Normal 4.5-5.3 [facility] Comment on above: Performed By: #### C BCA, CMP, , 2776-04, 1987-08 #### [facility] ([id number]) [address] [place] [address] HBV core Ab IA Qlon 10-24-19 ANTI HBc Negative Normal NEG [facility] Comment on above: Performed By: #### C BCA, CMP, , 2776-04, 1987-08 #### [facility] ([id number]) [address] [place] [address] HBV surface Ag IA Qlon 10-23 HEPATITIS B SURF AG Negative Normal NEG [facility] Comment on above: Performed By: #### C BCA, CMP, , 2776-04, 1987-08 #### [facility] ([id number]) [address] [place] [address] MAGNESIUMon 10-24-2023 Magnesium [Mass/Vol] 2.2 mg/dL Normal 1.8-2.6 [facility] Comment on above: Performed By: #### C BCA, CMP, , 2776-04, 1987-08 #### [facility] ([id number]) [address], [address] [place] [address] PHOSPHORUSon 10-24-2023 Phosphate [Mass/Vol] 3.4 mg/dL Normal 2.4-4.9 [facility] Comment on above: Performed By: #### Shahla POOLE CMP, , 2776-04, 1987-08 #### [facility] ([id number]) [address], [address] [place] [address] CBC AND AUTO DIFFon 10-23-19 24 Band form neutrophils/100 WBC (Bld) 2.0 % Normal [facility] Comment on above: Performed By: #### Shahla POOLE CMP, , 2776-04, 1987-08 #### [facility] ([id number]) [address] [address] Erythrocyte distribution width (RBC) [Ratio] 14.6 % Normal 11.5-15.0 [facility] Comment on above: Performed By: #### Shahla POOLE CMP, , 2776-04, 1987-08 #### [facility] ([id number]) [address] [address] [place] [address] Hematocrit (Bld) [Volume fraction] 31.6 % Low 35-47 [facility] Comment on above: Performed By: #### Shahla POOLE, CMP, , 2776-04, 1987-08 #### [facility] ([id number]) [address] [address] [place] [address] Hemoglobin (Bld) [Mass/Vol] 10.5 g/dL Low 11.7-15.5 [facility] Comment on above: Performed By: #### Shahla POOLE, CMP, , 2776-04, 1987-08 #### [facility] ([id number]) [address], [address] [place] [address] Lymphocytes (Bld) [#/Vol] 2.0 10*3/uL Normal 1.0-3.5 [facility] Comment on above: Performed By: #### Shahla POOLE CMP, , 2776-04, 1987-08 #### [facility] ([id number]) [address], [facility] [address] [place] [address] Lymphocytes/100 WBC (Bld) 21.0 % Normal [facility] Comment on above: Performed By: #### C VIRGILIO, CMP, , 2776-04, 1987-08 #### [facility] ([id number]) [address], [address] [address] MCH (RBC) [Entitic mass] 28.2 pg Normal 27-34 [facility] Comment on above: Performed By: #### Shahla POOLE CMP, , 2776-04, 1987-08 #### [facility] ([id number]) [address], [facility] [address] [place] [address] MCHC (RBC) [Mass/Vol] 33.3 g/dL Normal 32-36 [facility] Comment on above: Performed By: #### Shahla POOLE, CMP, , 2776-04, 1987-08 #### [facility] ([id number]) [address], [address] [address] MCV (RBC) [Entitic vol] 85 fL Normal 80-100 [facility] [facility] Comment on above: Performed By: #### Shahla POOLE, CMP, , 2776-04, 1987-08 #### [facility] ([id number]) [address], [facility] [address] [place] [address] Monocytes (Bld) [#/Vol] 1.8 10*3/uL High 0-0.9 [facility] Comment on above: Performed By: #### Shahla BCA, CMP, , 2776-04, 1987-08 #### [facility] ([id number]) [address], [address] [place] [address] Monocytes/100 WBC (Bld) 19.0 % Normal [facility] Comment on above: Performed By: #### Shahla POOLE CMP, , 2776-04, 1987-08 #### [facility] ([id number]) [address], [address] [place] [address] Neutrophils (Bld) [#/Vol] 5.8 10*3/uL Normal 1.5-6.6 [facility] Comment on above: Performed By: #### Shahla POOLE CMP, , 2776-04, 1987-08 #### [facility] ([id number]) [address], [address] [place] [address] Platelet mean volume (Bld) [Entitic vol] 9.3 fL Normal 7-12 [facility] Comment on above: Performed By: #### Shahla POOLE CMP, , 2776-04, 1987-08 #### [facility] ([id number]) [address], [address] [place] [address] Platelets (Bld) [#/Vol] 297 10*3/uL Normal 150-450 [facility] Comment on above: Performed By: #### Shahla POOLE CMP, , 2776-04, 1987-08 #### [facility] ([id number]) [address], [address] [place] [address] RBC COUNT 3.73 X10E12/L Low 3.80-5.20 [facility] Comment on above: Performed By: #### Shahla POOLE, CMP, , 2776-04, 1987-08 #### [facility] ([id number]) [address], [address] [place] [address] RBC morphology finding Nom (Bld) NORMAL Normal [facility] Comment on above: Performed By: #### C BCA, CMP, , 2776-04, 1987-08 #### [facility] ([id number]) [address], [address] [place] [address] SEG NEUTROPHIL 58.0 % Normal [facility] Comment on above: Performed By: #### C BCA, CMP, , 2776-04, 1987-08 #### [facility] ([id number]) [address], [address] [place] [address] WBC (Bld) [#/Vol] 9.6 10*3/uL Normal 4.0-11.0 [facility] Comment on above: Performed By: #### C BCA, CMP, , 2776-04, 1987-08 #### [facility] ([id number]) [address], [address] [place] [address] COMPREHENSIVE METABOLIC PANE [facility] 10-23-2023 Albumin [Mass/Vol] 3.2 g/dL Normal 3.2-5.3 [facility] Comment on above: Performed By: #### C BCA, CMP, , 2776-04, 1987-08 #### [facility] ([id number]) [address], [address] [place] [address] ALP [Catalytic activity/Vol] 38 U/L Low 39-130 [facility] Comment on above: Performed By: #### C BCA, CMP, , 2776-04, 1987-08 #### [facility] ([id number]) [address], [address] [place] [address] ALT [Catalytic activity/Vol] 10 U/L Normal 0-31 [facility] Comment on above: Performed By: #### C BCA, CMP, , 2776-04, 1987-08 #### [facility] ([id number]) [address], [address] [place] [address] Anion gap [Moles/Vol] 9 mmol/L Normal 5-15 [facility] Comment on above: Performed By: #### C BCA, CMP, , 2776-04, 1987-08 #### [facility] ([id number]) [address], [address] [place] [address] AST [Catalytic activity/Vol] 10 U/L Normal 0-41 [facility] Comment on above: Performed By: #### C BCA, CMP, , 2776-04, 1987-08 #### [facility] ([id number]) [address], [address] [place] [address] Bilirubin [Mass/Vol] 0.3 mg/dL Normal 0.3-1.2 [facility] Comment on above: Performed By: #### C BCA, CMP, , 2776-04, 1987-08 #### [facility] ([id number]) [address], [address] [place] [address] Calcium [Mass/Vol] 8.7 mg/dL Normal 8.5-10.5 [facility] Comment on above: Performed By: #### C BCA, CMP, , 2776-04, 1987-08 #### [facility] ([id number]) [address], [address] [place] [address] Chloride [Moles/Vol] 102 mmol/L Normal 98-109 [facility] Comment on above: Performed By: #### C BCA, CMP, , 2776-04, 1987-08 #### [facility] ([id number]) [address], [address] [place] [address] CO2 [Moles/Vol] 29 mmol/L Normal 22-32 [facility] Comment on above: Performed By: #### C BCA, CMP, , 2776-04, 1987-08 #### [facility] ([id number]) [address], [address] [place] [address] Creatinine [Mass/Vol] 2.68 mg/dL High 0.40-1.00 [facility] Comment on above: Result Comment: METH OD TRACEABLE TO IDMS STANDARD Performed By: #### C EDEL POOLE, , 2776-04, 1987-08 #### [facility] ([id number]) [address], [address] [place] [address] GFR/1.73 sq M.predicted among non-blacks MDRD (S/P/Bld) [Vol rate/Area] 20 mL/min/{1.73_m2} Low >59 [facility] Comment on above: Result Comment: Reported eGFR is based on the CKD-EPI 2020 equation that does not use a race coefficient. Performed By: #### C EDEL POOLE, , 2776-04, 1987-08 #### [facility] ([id number]) [address], [address] [place] [address] Glucose [Mass/Vol] 86 mg/dL Normal 65-99 [facility] Comment on above: Performed By: #### C EDEL POOLE, , 2776-04, 1987-08 #### [facility] ([id number]) [address], [address] [place] [address] Potassium [Moles/Vol] 3.7 mmol/L Normal 3.5-5.0 [facility] Comment on above: Performed By: #### C EDEL POOLE, , 2776-04, 1987-08 #### [facility] ([id number]) [address], [address] [place] [address] Protein [Mass/Vol] 5.2 g/dL Low 6.0-8.0 [facility] Comment on above: Performed By: #### C VIRGILIO CMP, , 2776-04, 1987-08 #### [facility] ([id number]) [address], [address] [place] [address] Sodium [Moles/Vol] 140 mmol/L Normal 134-146 [facility] Comment on above: Performed By: #### C BCA, CMP, , 2776-04, 1987-08 #### [facility] ([id number]) [address], [address] [place] [address] Urea nitrogen [Mass/Vol] 72 mg/dL High 5-23 [facility] Comment on above: Performed By: #### C VIRGILIO, CMP, , 2776-04, 1987-08 #### [facility] ([id number]) [address], [address] [place] [address] Calcium.ionized (Bld) [Mass/ Vol]on 10-23-2023 IONIZED CALCIUM 4.8 mg/dL Normal 4.5-5.3 [facility] Comment on above: Performed By: #### C BCA, CMP, , 2776-04, 1987-08 #### [facility] ([id number]) [address], [address] [place] [address] MAGNESIUMon 10-23-2023 Magnesium [Mass/Vol] 2.4 mg/dL Normal 1.8-2.6 [facility] Comment on above: Performed By: #### Shahla BCA, CMP, , 2776-04, 1987-08 #### [facility] ([id number]) [address], [address] [place] [address] PHOSPHORUSon 10-23-2023 Phosphate [Mass/Vol] 4.0 mg/dL Normal 2.4-4.9 [facility] Comment on above: Performed By: #### Shahla BCA, CMP, , 2776-04, 1987-08 #### [facility] ([id number]) [address], [address] [place] [address] CBC AND AUTO DIFFon 10-22-19 Erythrocyte distribution width (RBC) [Ratio] 15.0 % Normal 11.5-15.0 [facility] Comment on above: Performed By: #### Shahla POOLE CMP, , 2776-04, 1987-08 #### [facility] ([id number]) [address] [address] Hematocrit (Bld) [Volume fraction] 32.1 % Low 35-47 [facility] Comment on above: Performed By: #### Shahla POOLE CMP, , 2776-04, 1987-08 #### [facility] ([id number]) [address] [address] Hemoglobin (Bld) [Mass/Vol] 11.0 g/dL Low 11.7-15.5 [facility] Comment on above: Performed By: #### Shahla POOLE CMP, , 2776-04, 1987-08 #### [facility] ([id number]) [address] [address] Lymphocytes (Bld) [#/Vol] 1.2 10*3/uL Normal 1.0-3.5 [facility] Comment on above: Performed By: #### Shahla POOLE CMP, , 2776-04, 1987-08 #### [facility] ([id number]) [address] [address] Lymphocytes/100 WBC (Bld) 14.0 % Normal [facility] Comment on above: Performed By: #### Shahla POOLE CMP, , 2776-04, 1987-08 #### [facility] ([id number]) [address] [address] [place] [address] MCH (RBC) [Entitic mass] 28.8 pg Normal 27-34 [facility] Comment on above: Performed By: #### C VIRGILIO, CMP, , 2776-04, 1987-08 #### [facility] ([id number]) [address], [address] [place] [address] MCHC (RBC) [Mass/Vol] 34.3 g/dL Normal 32-36 [facility] Comment on above: Performed By: #### Shahla BCA, CMP, , 2776-04, 1987-08 #### [facility] ([id number]) [address], [address] [place] [address] MCV (RBC) [Entitic vol] 84 fL Normal 80-100 [facility] Comment on above: Performed By: #### Shahla BCA, CMP, , 2776-04, 1987-08 #### [facility] ([id number]) [address], [address] [place] [address] Metamyelocytes/100 WBC (Bld) 1.0 % Normal [facility] Comment on above: Performed By: #### C BCA, CMP, , 2776-04, 1987-08 #### [facility] ([id number]) [address], [address] [place] [address] Monocytes (Bld) [#/Vol] 0.6 10*3/uL Normal 0-0.9 [facility] Comment on above: Performed By: #### Shahla BCA, CMP, , 2776-04, 1987-08 #### [facility] ([id number]) [address], [address] [place] [address] Monocytes/100 WBC (Bld) 7.0 % Normal [facility] Comment on above: Performed By: #### C BCA, CMP, , 2776-04, 1987-08 #### [facility] ([id number]) [address], [address] [place] [address] MYELOCYTE 3.0 % Normal [facility] Comment on above: Performed By: #### Shahla BCA, CMP, , 2776-04, 1987-08 #### [facility] ([id number]) [address], [address] [place] [address] Neutrophils (Bld) [#/Vol] 6.7 10*3/uL High 1.5-6.6 [facility] Comment on above: Performed By: #### Shahla BCA, CMP, , 2776-04, 1987-08 #### [facility] ([id number]) [address], [facility] [address] [place] [address] Platelet mean volume (Bld) [Entitic vol] 9.4 fL Normal 7-12 [facility] Comment on above: Performed By: #### Shahla BCA, CMP, , 2776-04, 1987-08 #### [facility] ([id number]) [address], [address] [place] [address] Platelets (Bld) [#/Vol] 394 10*3/uL Normal 150-450 [facility] Comment on above: Performed By: #### Shahla BCA, CMP, , 2776-04, 1987-08 #### [facility] ([id number]) [address], [facility] [address] [place] [address] RBC COUNT 3.83 X10E12/L Normal 3.80-5.20 [facility] Comment on above: Performed By: #### Shahla BCA, CMP, , 2776-04, 1987-08 #### [facility] ([id number]) [address], [address] [place] [address] RBC morphology finding Nom (Bld) NORMAL Normal [facility] Comment on above: Performed By: #### Shahla BCA, CMP, , 2776-04, 1987-08 #### [facility] ([id number]) [address], [address] [place] [address] SEG NEUTROPHIL 75.0 % Normal [facility] Comment on above: Performed By: #### C BCA, CMP, , 2776-04, 1987-08 #### [facility] ([id number]) [address], [address] [place] [address] WBC (Bld) [#/Vol] 8.9 10*3/uL Normal 4.0-11.0 [facility] Comment on above: Performed By: #### C BCA, CMP, , 2776-04, 1987-08 #### [facility] ([id number]) [address], [address] [place] [address] COMPREHENSIVE METABOLIC PANE Phu 10-22-2023 Albumin [Mass/Vol] 3.4 g/dL Normal 3.2-5.3 [facility] Comment on above: Performed By: #### C BCA, CMP, , 2776-04, 1987-08 #### [facility] ([id number]) [address], [address] [place] [address] ALP [Catalytic activity/Vol] 43 U/L Normal 39-130 [facility] Comment on above: Performed By: #### C BCA, CMP, , 2776-04, 1987-08 #### [facility] ([id number]) [address], [address] [place] [address] ALT [Catalytic activity/Vol] 9 U/L Normal 0-31 [facility] Comment on above: Performed By: #### C BCA, CMP, , 2776-04, 1987-08 #### [facility] ([id number]) [address], [address] [place] [address] Anion gap [Moles/Vol] 14 mmol/L Normal 5-15 [facility] Comment on above: Performed By: #### C BCA, CMP, , 2776-04, 1987-08 #### [facility] ([id number]) [address], [address] [place] [address] AST [Catalytic activity/Vol] 12 U/L Normal 0-41 [facility] Comment on above: Performed By: #### C BCA, CMP, , 2776-04, 1987-08 #### [facility] ([id number]) [address], [address] [place] [address] Bilirubin [Mass/Vol] 0.3 mg/dL Normal 0.3-1.2 [facility] Comment on above: Performed By: #### C BCA, CMP, , 2776-04, 1987-08 #### [facility] ([id number]) [address], [address] [place] [address] Calcium [Mass/Vol] 8.9 mg/dL Normal 8.5-10.5 [facility] Comment on above: Performed By: #### C BCA, CMP, , 2776-04, 1987-08 #### [facility] ([id number]) [address] [place] [address] Chloride [Moles/Vol] 99 mmol/L Normal 98-109 [facility] Comment on above: Performed By: #### C BCA, CMP, , 2776-04, 1987-08 #### [facility] ([id number]) [address], [address] [place] [address] CO2 [Moles/Vol] 25 mmol/L Normal 22-32 [facility] Comment on above: Performed By: #### C BCA, CMP, , 2776-04, 1987-08 #### [facility] ([id number]) [address], [address] [place] [address] Creatinine [Mass/Vol] 3.16 mg/dL High 0.40-1.00 [facility] Comment on above: Result Comment: METH OD TRACEABLE TO IDMS STANDARD Performed By: #### C EDEL POOLE, , 2776-04, 1987-08 #### [facility] ([id number]) [address] [place] [address] GFR/1.73 sq M.predicted among non-blacks MDRD (S/P/Bld) [Vol rate/Area] 16 mL/min/{1.73_m2} Low >59 [facility] Comment on above: Result Comment: Reported eGFR is based on the CKD-EPI 2020 equation that does not use a race coefficient. Performed By: #### C EDEL POOLE, , 2776-04, 1987-08 #### [facility] ([id number]) [address] [place] [address] Glucose [Mass/Vol] 109 mg/dL High 65-99 [facility] Comment on above: Performed By: #### C EDEL POOLE, , 2776-04, 1987-08 #### [facility] ([id number]) [address] [address] [place] [address] Potassium [Moles/Vol] 4.0 mmol/L Normal 3.5-5.0 [facility] Comment on above: Performed By: #### C EDEL POOLE, , 2776-04, 1987-08 #### [facility] ([id number]) [address] [place] [address] Protein [Mass/Vol] 5.7 g/dL Low 6.0-8.0 [facility] Comment on above: Performed By: #### C EDEL POOLE, , 2776-04, 1987-08 #### [facility] ([id number]) [address], [address] [place] [address] Sodium [Moles/Vol] 138 mmol/L Normal 134-146 [facility] Comment on above: Performed By: #### C VIRGILIO, CMP, , 2776-04, 1987-08 #### [facility] ([id number]) [address], [address] [place] [address] Urea nitrogen [Mass/Vol] 79 mg/dL High 5-23 [facility] Comment on above: Performed By: #### C VIRGILIO, CMP, , 2776-04, 1987-08 #### [facility] ([id number]) [address] [place] [address] Calcium.ionized (Bld) [Mass/ Vol]on 10-22-2023 IONIZED CALCIUM 4.5 mg/dL Normal 4.5-5.3 [facility] Comment on above: Performed By: #### C VIRGILIO, CMP, , 2776-04, 1987-08 #### [facility] ([id number]) [address] [place] [address] MAGNESIUMon 10-22-2023 Magnesium [Mass/Vol] 2.5 mg/dL Normal 1.8-2.6 [facility] Comment on above: Performed By: #### C VIRGILIO, CMP, , 2776-04, 1987-08 #### [facility] ([id number]) [address] [place] [address] PHOSPHORUSon 10-22-2023 Phosphate [Mass/Vol] 4.7 mg/dL Normal 2.4-4.9 [facility] Comment on above: Performed By: #### C VIRGILIO, CMP, , 2776-04, 1987-08 #### [facility] ([id number]) [address] [place] [address] Basement membrane IgG Qn (S) on 10-21-2023 Glomerular Base Memb IgG <0.2 Normal <1.0 (Negative) [facility] Comment on above: Result Comment: NOTE Test Performed by: [facility] [address] [place] [address] Calciner Feeder: Ledy Son Ph.D.; CLIA# [id number] Performed By: #### C BCA, CMP, , 2776-04, 1987-08 #### [facility] ([id number]) [address] [place] [address] CBC AND AUTO DIFFon 10-21-19 24 ABSOLUTE BASOPHIL 0.0 X10E9/L Normal 0.0-0.2 [facility] Comment on above: Performed By: #### C BCA, CMP, , 2776-04, 1987-08 #### [facility] ([id number]) [address] [place] [address] ABSOLUTE NEUTROPHIL 8.8 X10E9/L High 1.5-6.6 [facility] Comment on above: Performed By: #### C BCA, CMP, , 2776-04, 1987-08 #### [facility] ([id number]) [address] [place] [address] Basophils/100 WBC (Bld) 0.1 % Normal [facility] Comment on above: Performed By: #### C BCA, CMP, , 2776-04, 1987-08 #### [facility] ([id number]) [address] [place] [address] Eosinophils (Bld) [#/Vol] 0.0 10*3/uL Normal 0.0-0.4 [facility] Comment on above: Performed By: #### C BCA, CMP, , 2776-04, 1987-08 #### [facility] ([id number]) [address] [place] [address] Eosinophils/100 WBC (Bld) 0.0 % Normal [facility] Comment on above: Performed By: #### C BCA, CMP, , 2776-04, 1987-08 #### [facility] ([id number]) [address] [place] [address] Erythrocyte distribution width (RBC) [Ratio] 15.1 % High 11.5-15.0 [facility] Comment on above: Performed By: #### C VIRGILIO, CMP, , 2776-04, 1987-08 #### [facility] ([id number]) [address] [place] [address] Hematocrit (Bld) [Volume fraction] 30.9 % Low 35-47 [facility] Comment on above: Performed By: #### C VIRGILIO, CMP, , 2776-04, 1987-08 #### [facility] ([id number]) [address] [place] [address] Hemoglobin (Bld) [Mass/Vol] 10.7 g/dL Low 11.7-15.5 [facility] Comment on above: Performed By: #### Shahla POOLE, CMP, , 2776-04, 1987-08 #### [facility] ([id number]) [address], [address] [place] [address] Lymphocytes (Bld) [#/Vol] 1.1 10*3/uL Normal 1.0-3.5 [facility] Comment on above: Performed By: #### C BCA, CMP, , 2776-04, 1987-08 #### [facility] ([id number]) [address], [address] [place] [address] Lymphocytes/100 WBC (Bld) 10.9 % Normal [facility] Comment on above: Performed By: #### Shahla BCA, CMP, , 2776-04, 1987-08 #### [facility] ([id number]) [address], [address] [place] [address] MCH (RBC) [Entitic mass] 29.1 pg Normal 27-34 [facility] Comment on above: Performed By: #### C BCA, CMP, , 2776-04, 1987-08 #### [facility] ([id number]) [address], [address] [place] [address] MCHC (RBC) [Mass/Vol] 34.7 g/dL Normal 32-36 [facility] Comment on above: Performed By: #### C BCA, CMP, , 2776-04, 1987-08 #### [facility] ([id number]) [address], [address] [place] [address] MCV (RBC) [Entitic vol] 84 fL Normal 80-100 [facility] Comment on above: Performed By: #### Shahla BCA, CMP, , 2776-04, 1987-08 #### [facility] ([id number]) [address], [address] [place] [address] Monocytes (Bld) [#/Vol] 0.2 10*3/uL Normal 0-0.9 [facility] Comment on above: Performed By: #### Shahla BCA, CMP, , 2776-04, 1987-08 #### [facility] ([id number]) [address], [address] [place] [address] Monocytes/100 WBC (Bld) 2.2 % Normal [facility] Comment on above: Performed By: #### Shahla BCA, CMP, , 2776-04, 1987-08 #### [facility] ([id number]) [address], [address] [place] [address] Neutrophils/100 WBC (Bld) 86.8 % Normal [facility] Comment on above: Performed By: #### Shahla BCA, CMP, , 2776-04, 1987-08 #### [facility] ([id number]) [address], [address] [place] [address] Platelet mean volume (Bld) [Entitic vol] 9.5 fL Normal 7-12 [facility] Comment on above: Performed By: #### C BCA, CMP, , 2776-04, 1987-08 #### [facility] [facility] ([id number]) [address], [address] [place] [address] Platelets (Bld) [#/Vol] 297 10*3/uL Normal 150-450 [facility] Comment on above: Performed By: #### C BCA, CMP, , 2776-04, 1987-08 #### [facility] ([id number]) [address], [address] [place] [address] RBC COUNT 3.69 X10E12/L Low 3.80-5.20 [facility] Comment on above: Performed By: #### C BCA, CMP, , 2776-04, 1987-08 #### [facility] ([id number]) [address], [address] [place] [address] WBC (Bld) [#/Vol] 10.2 10*3/uL Normal 4.0-11.0 [facility] Comment on above: Performed By: #### C BCA, CMP, , 2776-04, 1987-08 #### [facility] ([id number]) [address], [address] [place] [address] COMPREHENSIVE METABOLIC PANE Phu 10-21-2023 Albumin [Mass/Vol] 3.6 g/dL Normal 3.2-5.3 [facility] Comment on above: Performed By: #### C BCA, CMP, , 2776-04, 1987-08 #### [facility] ([id number]) [address], [address] [place] [address] ALP [Catalytic activity/Vol] 46 U/L Normal 39-130 [facility] Comment on above: Performed By: #### C BCA, CMP, , 2776-04, 1987-08 #### [facility] ([id number]) [address], [address] [place] [address] ALT [Catalytic activity/Vol] 15 U/L Normal 0-31 [facility] Comment on above: Performed By: #### C BCA, CMP, , 2776-04, 1987-08 #### [facility] ([id number]) [address], [address] [place] [address] Anion gap [Moles/Vol] 12 mmol/L Normal 5-15 [facility] Comment on above: Performed By: #### C BCA, CMP, , 2776-04, 1987-08 #### [facility] ([id number]) [address], [address] [place] [address] AST [Catalytic activity/Vol] 18 U/L Normal 0-41 [facility] Comment on above: Performed By: #### C BCA, CMP, , 2776-04, 1987-08 #### [facility] ([id number]) [address], [address] [place] [address] Bilirubin [Mass/Vol] 0.3 mg/dL Normal 0.3-1.2 [facility] Comment on above: Performed By: #### C BCA, CMP, , 2776-04, 1987-08 #### [facility] ([id number]) [address], [address] [place] [address] Calcium [Mass/Vol] 8.8 mg/dL Normal 8.5-10.5 [facility] Comment on above: Performed By: #### C BCA, CMP, , 2776-04, 1987-08 #### [facility] ([id number]) [address], [address] [place] [address] Chloride [Moles/Vol] 96 mmol/L Low 98-109 [facility] Comment on above: Performed By: #### C BCA, CMP, , 2776-04, 1987-08 #### [facility] ([id number]) [address], [address] [place] [address] CO2 [Moles/Vol] 28 mmol/L Normal 22-32 [facility] Comment on above: Performed By: #### C BCA, CMP, , 2776-04, 1987-08 #### [facility] ([id number]) [address], [address] [place] [address] Creatinine [Mass/Vol] 3.71 mg/dL High 0.40-1.00 [facility] Comment on above: Result Comment: METH OD TRACEABLE TO IDMS STANDARD Performed By: #### C BCA, CMP, , 2776-04, 1987-08 #### [facility] ([id number]) [address], [address] [place] [address] GFR/1.73 sq M.predicted among non-blacks MDRD (S/P/Bld) [Vol rate/Area] 13 mL/min/{1.73_m2} Low >59 [facility] Comment on above: Result Comment: Reported eGFR is based on the CKD-EPI 2020 equation that does not use a race coefficient. Performed By: #### C BCA, CMP, , 2776-04, 1987-08 #### [facility] ([id number]) [address], [address] [place] [address] Glucose [Mass/Vol] 131 mg/dL High 65-99 [facility] Comment on above: Performed By: #### C BCA, CMP, , 2776-04, 1987-08 #### [facility] ([id number]) [address], [address] [place] [address] Potassium [Moles/Vol] 4.6 mmol/L Normal 3.5-5.0 [facility] Comment on above: Performed By: #### C EDEL POOLE, , 2776-04, 1987-08 #### [facility] ([id number]) [address], [address] [place] [address] Protein [Mass/Vol] 5.9 g/dL Low 6.0-8.0 [facility] Comment on above: Performed By: #### C EDEL POOLE, , 2776-04, 1987-08 #### [facility] ([id number]) [address], [address] [place] [address] Sodium [Moles/Vol] 136 mmol/L Normal 134-146 [facility] Comment on above: Performed By: #### Shahla POOLE CMP, , 2776-04, 1987-08 #### [facility] ([id number]) [address], [address] [place] [address] Urea nitrogen [Mass/Vol] 80 mg/dL High 5-23 [facility] Comment on above: Performed By: #### Shahla POOLE CMP, , 2776-04, 1987-08 #### [facility] ([id number]) [address], [address] [place] [address] Calcium.ionized (Bld) [Mass/ Vol]on 10-21-2023 IONIZED CALCIUM 4.5 mg/dL Normal 4.5-5.3 [facility] Comment on above: Performed By: #### Shahla POOLE CMP, , 2776-04, 1987-08 #### [facility] ([id number]) [address], [address] [place] [address] MAGNESIUMon 10-21-2023 Magnesium [Mass/Vol] 2.4 mg/dL Normal 1.8-2.6 [facility] Comment on above: Performed By: #### C BCA, CMP, , 2776-04, 1987-08 #### [facility] ([id number]) [address], [address] [place] [address] PHOSPHORUSon 10-21-2023 Phosphate [Mass/Vol] 5.5 mg/dL High 2.4-4.9 [facility] Comment on above: Performed By: #### C BCA, CMP, , 2776-04, 1987-08 #### [facility] ([id number]) [address], [address] [place] [address] CBC AND AUTO DIFFon 10-20-19 ABSOLUTE BASOPHIL 0.0 X10E9/L Normal 0.0-0.2 [facility] Comment on above: Performed By: #### C BCA, CMP, , 2776-04, 1987-08 #### [facility] ([id number]) [address], [address] [place] [address] ABSOLUTE NEUTROPHIL 14.6 X10E9/L High 1.5-6.6 [facility] Comment on above: Performed By: #### C BCA, CMP, , 2776-04, 1987-08 #### [facility] ([id number]) [address], [address] [place] [address] Basophils/100 WBC (Bld) 0.1 % Normal [facility] Comment on above: Performed By: #### C BCA, CMP, , 2776-04, 1987-08 #### [facility] ([id number]) [address], [address] [place] [address] Eosinophils (Bld) [#/Vol] 0.0 10*3/uL Normal 0.0-0.4 [facility] Comment on above: Performed By: #### C BCA, CMP, , 2776-04, 1987-08 #### [facility] ([id number]) [address], [address] [place] [address] Eosinophils/100 WBC (Bld) 0.0 % Normal [facility] Comment on above: Performed By: #### C VIRGILIO [facility], , 2776-04, 1987-08 #### [facility] ([id number]) [address], [address] [place] [address] Erythrocyte distribution width (RBC) [Ratio] 15.3 % High 11.5-15.0 [facility] Comment on above: Performed By: #### Shahla POOLE [facility] [address], , 2776-04, 1987-08 #### [facility] ([id number]) [address], [address] [place] [address] Hematocrit (Bld) [Volume fraction] 32.0 % Low 35-47 [facility] Comment on above: Performed By: #### Shahla POOLE [facility] [address] [address], , 2776-04, 1987-08 #### [facility] ([id number]) [address], [address] [place] [address] Hemoglobin (Bld) [Mass/Vol] 10.5 g/dL Low 11.7-15.5 [facility] Comment on above: Performed By: #### Shahla POOLE [facility] [address], , 2776-04, 1987-08 #### [facility] ([id number]) [address], [address] [place] [address] Lymphocytes (Bld) [#/Vol] 1.7 10*3/uL Normal 1.0-3.5 [facility] Comment on above: Performed By: #### Shahla POOLE, CMP, , 2776-04, 1987-08 #### [facility] ([id number]) [address], [address] [place] [address] Lymphocytes/100 WBC (Bld) 10.3 % Normal [facility] Comment on above: Performed By: #### C BCA, CMP, , 2776-04, 1987-08 #### [facility] ([id number]) [address], [address] [place] [address] MCH (RBC) [Entitic mass] 27.7 pg Normal 27-34 [facility] Comment on above: Performed By: #### Shahla BCA, CMP, , 2776-04, 1987-08 #### [facility] ([id number]) [address], [address] [place] [address] MCHC (RBC) [Mass/Vol] 32.9 g/dL Normal 32-36 [facility] Comment on above: Performed By: #### Shahla BCA, CMP, , 2776-04, 1987-08 #### [facility] ([id number]) [address], [address] [place] [address] MCV (RBC) [Entitic vol] 84 fL Normal 80-100 [facility] Comment on above: Performed By: #### Shahla POOLE, CMP, , 2776-04, 1987-08 #### [facility] ([id number]) [address], [address] [place] [address] Monocytes (Bld) [#/Vol] 0.4 10*3/uL Normal 0-0.9 [facility] Comment on above: Performed By: #### Shahla BCA, CMP, , 2776-04, 1987-08 #### [facility] ([id number]) [address], [address] [place] [address] Monocytes/100 WBC (Bld) 2.2 % Normal [facility] Comment on above: Performed By: #### Shahla BCA, CMP, , 2776-04, 1987-08 #### [facility] ([id number]) [address], [address] [place] [address] Neutrophils/100 WBC (Bld) 87.4 % Normal [facility] Comment on above: Performed By: #### C BCA, CMP, , 2776-04, 1987-08 #### [facility] ([id number]) [address], [address] [place] [address] Platelet mean volume (Bld) [Entitic vol] 9.3 fL Normal 7-12 [facility] Comment on above: Performed By: #### C BCA, CMP, , 2776-04, 1987-08 #### [facility] ([id number]) [address], [facility] [address] [place] [address] Platelets (Bld) [#/Vol] 350 10*3/uL Normal 150-450 [facility] Comment on above: Performed By: #### Shahla BCA, CMP, , 2776-04, 1987-08 #### [facility] ([id number]) [address], [address] [place] [address] RBC COUNT 3.80 X10E12/L Normal 3.80-5.20 [facility] Comment on above: Performed By: #### Shahla BCA, CMP, , 2776-04, 1987-08 #### [facility] ([id number]) [address], [address] [place] [address] WBC (Bld) [#/Vol] 16.7 10*3/uL High 4.0-11.0 [facility] Comment on above: Performed By: #### C BCA, CMP, , 2776-04, 1987-08 #### [facility] ([id number]) [address], [address] [place] [address] COMPREHENSIVE METABOLIC PANE Phu 10-20-2023 Albumin [Mass/Vol] 3.6 g/dL Normal 3.2-5.3 [facility] Comment on above: Performed By: #### C BCA, CMP, , 2776-04, 1987-08 #### [facility] ([id number]) [address], [address] [place] [address] ALP [Catalytic activity/Vol] 53 U/L Normal 39-130 [facility] Comment on above: Performed By: #### C BCA, CMP, , 2776-04, 1987-08 #### [facility] ([id number]) [address], [address] [place] [address] ALT [Catalytic activity/Vol] 14 U/L Normal 0-31 [facility] Comment on above: Performed By: #### C BCA, CMP, , 2776-04, 1987-08 #### [facility] ([id number]) [address], [address] [place] [address] Anion gap [Moles/Vol] 13 mmol/L Normal 5-15 [facility] Comment on above: Performed By: #### C BCA, CMP, , 2776-04, 1987-08 #### [facility] ([id number]) [address], [address] [place] [address] AST [Catalytic activity/Vol] 27 U/L Normal 0-41 [facility] Comment on above: Performed By: #### C BCA, CMP, , 2776-04, 1987-08 #### [facility] ([id number]) [address], [address] [place] [address] Bilirubin [Mass/Vol] 0.3 mg/dL Normal 0.3-1.2 [facility] Comment on above: Performed By: #### C BCA, CMP, , 2776-04, 1987-08 #### [facility] ([id number]) [address], [address] [place] [address] Calcium [Mass/Vol] 9.1 mg/dL Normal 8.5-10.5 [facility] Comment on above: Performed By: #### C EDEL POOLE, , 2776-04, 1987-08 #### [facility] ([id number]) [address] [place] [address] Chloride [Moles/Vol] 94 mmol/L Low 98-109 [facility] Comment on above: Performed By: #### C EDEL POOLE, , 2776-04, 1987-08 #### [facility] ([id number]) [address], [address] [place] [address] CO2 [Moles/Vol] 28 mmol/L Normal 22-32 [facility] Comment on above: Performed By: #### C EDEL POOLE, , 2776-04, 1987-08 #### [facility] ([id number]) [address], [address] [place] [address] Creatinine [Mass/Vol] 3.58 mg/dL High 0.40-1.00 [facility] Comment on above: Result Comment: METH OD TRACEABLE TO IDMS STANDARD Performed By: #### C EDEL POOLE, , 2776-04, 1987-08 #### [facility] ([id number]) [address], [address] [place] [address] GFR/1.73 sq M.predicted among non-blacks MDRD (S/P/Bld) [Vol rate/Area] 14 mL/min/{1.73_m2} Low >59 [facility] Comment on above: Result Comment: Reported eGFR is based on the CKD-EPI 2020 equation that does not use a race coefficient. Performed By: #### C EDEL POOLE, , 2776-04, 1987-08 #### [facility] ([id number]) [address], [address] [place] [address] Glucose [Mass/Vol] 133 mg/dL High 65-99 [facility] Comment on above: Performed By: #### C BCA, CMP, , 2776-04, 1987-08 #### [facility] ([id number]) [address], [address] [place] [address] Potassium [Moles/Vol] 4.8 mmol/L Normal 3.5-5.0 [facility] Comment on above: Performed By: #### C BCA, CMP, , 2776-04, 1987-08 #### [facility] ([id number]) [address], [address] [place] [address] Protein [Mass/Vol] 6.1 g/dL Normal 6.0-8.0 [facility] Comment on above: Performed By: #### C BCA, CMP, , 2776-04, 1987-08 #### [facility] ([id number]) [address], [address] [place] [address] Sodium [Moles/Vol] 135 mmol/L Normal 134-146 [facility] Comment on above: Performed By: #### C BCA, CMP, , 2776-04, 1987-08 #### [facility] ([id number]) [address], [address] [place] [address] Urea nitrogen [Mass/Vol] 70 mg/dL High 5-23 [facility] Comment on above: Performed By: #### C BCA, CMP, , 2776-04, 1987-08 #### [facility] ([id number]) [address], [address] [place] [address] Calcium.ionized (Bld) [Mass/ Vol]on 10-20-2023 IONIZED CALCIUM 4.6 mg/dL Normal 4.5-5.3 [facility] Comment on above: Performed By: #### C BCA, CMP, , 2776-04, 1987-08 #### [facility] ([id number]) [address] [place] [address] IR BIOPSY RENAL PERC RTon IR BIOPSY [...] Mann MD on 10/20/2023 3:13 PM Normal [facility] MAGNESIUMon 10-20-2023 Magnesium [Mass/Vol] 2.3 mg/dL Normal 1.8-2.6 [facility] Comment on above: Performed By: #### C BCA, CMP, 41307-9, 2776-04, 1987-08 #### [facility] ([id number]) [address] [place] [address], [facility] [address] [place] [address] PHOSPHORUSon 10-20-2023 Phosphate [Mass/Vol] 6.3 mg/dL High 2.4-4.9 [facility] Comment on above: Performed By: #### C BCA, CMP, 75131-4, 2776-04, 1987-08 #### [facility] ([id number]) [address] [place] [address], [address] [address] Surgical Pathologyon 024 Surgical Pathology Normal [facility] Comment on above: Result Comment: [facility] [address] [place] [address] Surgical Pathology Consultation ADDENDUM [place] Patient Name:DANIELLE MONTANA:1965 (Age: 58)Gender:FTaken:4Reported:10/24/2023hysician(s):Wanda Menedz ([phone])Copy To:MD Natasha ROSALES M.D. Rec. #:[id number]: #[id number] Final Pathologic Diagnosis Right kidney, needle biopsy: Specimen sent to [facility]. Report Electronically Signed Out [facility]/10/24/2023Gene MD Derrick Addendum ([facility]) Date Reported: 10/24/2023 Results of routine histology and immunofluorescence dated 10/24/2023 are received from Deidra Bustos M.D., [facility] [employer], [facility] DNS:[place], [place] and are as follows: Final Diagnosis: [...] addendum. Please see the complete report from [facility] in the patient's EMR. Electronically Signed Out Trace Meza MD Addendum ([facility]) Date Reported: 11/02/2023 Results of Addendum (Electron Microscopy) dated are received from Deidra Bustos M.D., [facility], [address] [place] [address] and are as follows: Paraffin-based immunofluorescence stains [...] case. Please see the complete report from [facility] in the patient's EMR. Electronically Signed Out Trace Meza MD Addendum ([facility]) Date Reported: 11/08/2023 Results of Mass Spectrometry dated 11/07/2023 are received from Adan Yates M.D., Ph.D., [facility], [address] [place] [address] and are as follows: MASS SPECTROMETRY Liquid chromatography tandem mass spectrometry (LC MS/MS) was performed on peptides extracted from glomeruli that were microdissected from the paraffin-embedded specimen. LC MS/MS did not detect a peptide profile consistent with any of the following antigens: PLA2R, THSD7A, EXT1/EXT2, NELL1, SEMA3B, CNTN1, NCAM1, PCSK6, PCDH7, FAT1 or NDNF. Please see the complete report from [facility] (more content not included)... CBC AND AUTO DIFFon 10-19-19 24 Band form neutrophils/100 WBC (Bld) 1.0 % Normal [facility] Comment on above: Performed By: #### C VIRGILIO CMP, , 2776-04, 1987-08 #### [facility] ([id number]) [address], [facility] [address] [place] [address] Erythrocyte distribution width (RBC) [Ratio] 14.9 % Normal 11.5-15.0 [facility] Comment on above: Performed By: #### C VIRGILIO CMP, , 2776-04, 1987-08 #### [facility] ([id number]) [address] [place] [address] Hematocrit (Bld) [Volume fraction] 34.4 % Low 35-47 [facility] Comment on above: Performed By: #### C VIRGILIO [facility] [address], , 2776-04, 1987-08 #### [facility] ([id number]) [address], [facility] [address] [place] [address] Hemoglobin (Bld) [Mass/Vol] 11.4 g/dL Low 11.7-15.5 [facility] Comment on above: Performed By: #### C BCA, CMP, , 2776-04, 1987-08 #### [facility] ([id number]) [address], [address] [address] Lymphocytes (Bld) [#/Vol] 1.9 10*3/uL Normal 1.0-3.5 [facility] Comment on above: Performed By: #### C BCA, CMP, , 2776-04, 1987-08 #### [facility] ([id number]) [address] [address] [place] [address] Lymphocytes/100 WBC (Bld) 15.0 % Normal [facility] Comment on above: Performed By: #### Shahla POOLE, CMP, , 2776-04, 1987-08 #### [facility] ([id number]) [address] [facility] [address] [place] [address] MCH (RBC) [Entitic mass] 27.8 pg Normal 27-34 [facility] Comment on above: Performed By: #### Shahla BCA, CMP, , 2776-04, 1987-08 #### [facility] ([id number]) [address] [facility] [address] [place] [address] MCHC (RBC) [Mass/Vol] 33.2 g/dL Normal 32-36 [facility] Comment on above: Performed By: #### Shahla BCA, CMP, , 2776-04, 1987-08 #### [facility] ([id number]) [address] [address] [place] [address] MCV (RBC) [Entitic vol] 84 fL Normal 80-100 [facility] Comment on above: Performed By: #### Shahla BCA, CMP, , 2776-04, 1987-08 #### [facility] ([id number]) [address] [address] [place] [address] Metamyelocytes/100 WBC (Bld) 1.0 % Normal [facility] Comment on above: Performed By: #### Shahla BCA, CMP, , 2776-04, 1987-08 #### [facility] ([id number]) [address] [address] [place] [address] Monocytes (Bld) [#/Vol] 0.1 10*3/uL Normal 0-0.9 [facility] Comment on above: Performed By: #### Shahla BCA, CMP, , 2776-04, 1987-08 #### [facility] ([id number]) [address] [place] [address] Monocytes/100 WBC (Bld) 1.0 % Normal [facility] Comment on above: Performed By: #### C BCA, CMP, , 2776-04, 1987-08 #### [facility] ([id number]) [address] [facility] [address] [place] [address] Neutrophils (Bld) [#/Vol] 10.4 10*3/uL High 1.5-6.6 [facility] Comment on above: Performed By: #### C VIRGILIO, CMP, , 2776-04, 1987-08 #### [facility] ([id number]) [address] [address] [place], [place] [address] Platelet mean volume (Bld) [Entitic vol] 9.3 fL Normal 7-12 [facility] Comment on above: Performed By: #### C VIRGILIO, CMP, , 2776-04, 1987-08 #### [facility] ([id number]) [address], [address] [address] Platelets (Bld) [#/Vol] 324 10*3/uL Normal 150-450 [facility] Comment on above: Performed By: #### C VIRGILIO, CMP, , 2776-04, 1987-08 #### [facility] ([id number]) [address], [facility] [address] [place] [address] POLYCHROMASIA 1+ Abnormal NONE [facility] Comment on above: Performed By: #### C BCA, CMP, , 2776-04, 1987-08 #### [facility] ([id number]) [address], [facility] [address] [place] [address] RBC COUNT 4.09 X10E12/L Normal 3.80-5.20 [facility] Comment on above: Performed By: #### C BCA, CMP, , 2776-04, 1987-08 #### [facility] ([id number]) [address], [address] [place] [address] SEG NEUTROPHIL 82.0 % Normal [facility] Comment on above: Performed By: #### C BCA, CMP, , 2776-04, 1987-08 #### [facility] ([id number]) [address], [address] [place] [address] WBC (Bld) [#/Vol] 12.5 10*3/uL High 4.0-11.0 [facility] Comment on above: Performed By: #### C BCA, CMP, , 2776-04, 1987-08 #### [facility] ([id number]) [address], [address] [place] [address] COMPREHENSIVE METABOLIC PANE [facility] 10-19-2023 Albumin [Mass/Vol] 3.7 g/dL Normal 3.2-5.3 [facility] Comment on above: Performed By: #### C BCA, CMP, , 2776-04, 1987-08 #### [facility] ([id number]) [address], [address] [place] [address] ALP [Catalytic activity/Vol] 58 U/L Normal 39-130 [facility] Comment on above: Performed By: #### C BCA, CMP, , 2776-04, 1987-08 #### [facility] ([id number]) [address], [address] [place] [address] ALT [Catalytic activity/Vol] 10 U/L Normal 0-31 [facility] Comment on above: Performed By: #### C BCA, CMP, , 2776-04, 1987-08 #### [facility] ([id number]) [address], [address] [place] [address] Anion gap [Moles/Vol] 13 mmol/L Normal 5-15 [facility] Comment on above: Performed By: #### C BCA, CMP, , 2776-04, 1987-08 #### [facility] ([id number]) [address], [address] [place] [address] AST [Catalytic activity/Vol] 17 U/L Normal 0-41 [facility] Comment on above: Performed By: #### C BCA, CMP, , 2776-04, 1987-08 #### [facility] ([id number]) [address], [address] [place] [address] Bilirubin [Mass/Vol] 0.3 mg/dL Normal 0.3-1.2 [facility] Comment on above: Performed By: #### C BCA, CMP, , 2776-04, 1987-08 #### [facility] ([id number]) [address], [address] [place] [address] Calcium [Mass/Vol] 9.9 mg/dL Normal 8.5-10.5 [facility] Comment on above: Performed By: #### C BCA, CMP, , 2776-04, 1987-08 #### [facility] ([id number]) [address], [address] [place] [address] Chloride [Moles/Vol] 95 mmol/L Low 98-109 [facility] Comment on above: Performed By: #### C BCA, CMP, , 2776-04, 1987-08 #### [facility] ([id number]) [address], [address] [place] [address] CO2 [Moles/Vol] 28 mmol/L Normal 22-32 [facility] Comment on above: Performed By: #### C BCA, CMP, , 2776-04, 1987-08 #### [facility] ([id number]) [address], [address] [place] [address] Creatinine [Mass/Vol] 3.62 mg/dL High 0.40-1.00 [facility] Comment on above: Result Comment: METH OD TRACEABLE TO IDMS STANDARD Performed By: #### C EDEL POOLE, , 2776-04, 1987-08 #### [facility] ([id number]) [address], [address] [place] [address] GFR/1.73 sq M.predicted among non-blacks MDRD (S/P/Bld) [Vol rate/Area] 14 mL/min/{1.73_m2} Low >59 [facility] Comment on above: Result Comment: Reported eGFR is based on the CKD-EPI 2020 equation that does not use a race coefficient. Performed By: #### C EDEL POOLE, , 2776-04, 1987-08 #### [facility] ([id number]) [address], [address] [place] [address] Glucose [Mass/Vol] 146 mg/dL High 65-99 [facility] Comment on above: Performed By: #### C EDEL POOLE, , 2776-04, 1987-08 #### [facility] ([id number]) [address], [address] [place] [address] Potassium [Moles/Vol] 5.2 mmol/L High 3.5-5.0 [facility] Comment on above: Performed By: #### C EDEL POOLE, , 2776-04, 1987-08 #### [facility] ([id number]) [address], [address] [place] [address] Protein [Mass/Vol] 6.4 g/dL Normal 6.0-8.0 [facility] Comment on above: Performed By: #### C VIRGILIO CMP, , 2776-04, 1987-08 #### [facility] ([id number]) [address], [address] [place] [address] Sodium [Moles/Vol] 136 mmol/L Normal 134-146 [facility] Comment on above: Performed By: #### C BCA, CMP, , 2776-04, 1987-08 #### [facility] ([id number]) [address], [address] [place] [address] Urea nitrogen [Mass/Vol] 53 mg/dL High 5-23 [facility] Comment on above: Performed By: #### C BCA, CMP, , 2776-04, 1987-08 #### [facility] ([id number]) [address], [address] [place] [address] CRP [Mass/Vol]on 10-19-2023 C REACTIVE PROTEIN 0.9 mg/dL High 0.000-0.744 [facility] Comment on above: Performed By: #### C BCA, [facility] [address], , 2776-04, 1987-08 #### [facility] ([id number]) [address], [address] [place] [address] Calcium.ionized (Bld) [Mass/ Vol]on 10-19-2023 IONIZED CALCIUM 4.6 mg/dL Normal 4.5-5.3 [facility] Comment on above: Performed By: #### 3 8230-9 #### [facility] ([id number]) [address], [address] [place] [address] IMMUNOGLOBULINSon 10-19-2023 IgA [Mass/Vol] 109 mg/dL Normal 68-378 [facility] Comment on above: Performed By: #### P INR, 06014-7, IMGB #### [facility] ([id number]) [address], [address] [place] [address] IgG [Mass/Vol] 460 mg/dL Low 635-1741 [facility] Comment on above: Performed By: #### P INR, 34830-4, IMGB #### [facility] ([id number]) [address], [address] [place] [address] IgM [Mass/Vol] 98 mg/dL Normal 45-281 [facility] Comment on above: Performed By: #### P INR, 31139-7, IMGB #### [facility] ([id number]) [address], [address] [place] [address] MAGNESIUMon 10-19-2023 Magnesium [Mass/Vol] 2.0 mg/dL Normal 1.8-2.6 [facility] Comment on above: Performed By: #### C VIRGILIO, CMP, , 2776-04, 1987-08 #### [facility] ([id number]) [address], [address] [place] [address] PHOSPHORUSon 10-19-2023 Phosphate [Mass/Vol] 4.8 mg/dL Normal 2.4-4.9 [facility] Comment on above: Performed By: #### C BCA, CMP, , 2776-04, 1987-08 #### [facility] ([id number]) [address], [address] [place] [address] PLATELET FUNCTIONon 10-19-19 24 COLLAGEN/ADP 72 sec Normal 0-114 [facility] Comment on above: Performed By: #### P FA, PINR, 38363-4 #### [facility] ([id number]) [address], [address] [place] [address] COLLAGEN/EPINEPHRINE 81 sec Normal 0-179 [facility] Comment on above: Performed By: #### P FA, PINR, 99780-3 #### [facility] ([id number]) [address], [address] [place] [address] PFA INTERP Platelet function is normal. If patient Normal [facility] Comment on above: Result Comment: hist ory/physical examination gives strong indication of a bleeding disorder, consider testing for other etiologies. Performed By: #### P FA, PINR, 61243-9 #### [facility] ([id number]) [address], [address] [place] [address] PROTIME AND INRon 10-19-2023 INR Coag (PPP) [Relative time] 0.9 {INR} Normal 0.8-1.1 [facility] Comment on above: Performed By: #### C BCA, CMP, , 2776-04, 1987-08 #### [facility] ([id number]) [address], [address] [place] [address] PT Coag (PPP) [Time] 10.4 s Normal 9.8-13.2 [facility] Comment on above: Performed By: #### C BCA, CMP, , 2776-04, 1987-08 #### [facility] ([id number]) [address], [address] [place] [address] INR Coag (PPP) [Relative time] 0.9 {INR} Normal 0.8-1.1 [facility] Comment on above: Performed By: #### P INR, 78104-4, IMGB #### [facility] ([id number]) [address], [address] [place] [address] PT Coag (PPP) [Time] 10.4 s Normal 9.8-13.2 [facility] Comment on above: Performed By: #### P INR, 29360-8, IMGB #### [facility] ([id number]) [address], [address] [place] [address] aPTT Coag (PPP) [Time]on aPTT Coag (Bld) [Time] 40 s High 26-37 [facility] Comment on above: Performed By: #### C BCA, CMP, , 2776-, 1987-08 #### [facility] ([id number]) [address] [facility], [address] [place] [address] aPTT Coag (Bld) [Time] 34 s Normal 26-37 [facility] Comment on above: Performed By: #### P INR, 27356-0, IMGB #### [facility] ([id number]) [address], [address] [place] [address] Basement membrane IgG Qn (S) on 10-18-2023 Glomerular Base Memb IgG <0.2 Normal <1.0 (Negative) [facility] Comment on above: Result Comment: NOTE Test Performed by: [facility] [address] [place] [address] Calciner Feeder: Ledy Son Ph.D.; CLIA# [id number] Performed By: #### 8 9579-7 #### [facility] ([id number]) [address] [place] [address] CBC AND AUTO DIFFon 10-18-19 ABSOLUTE BASOPHIL 0.1 X10E9/L Normal 0.0-0.2 [facility] Comment on above: Performed By: #### C BCA, CMP, , 2776-04 ####[facility] ([id number])[address] [place] [address] ABSOLUTE NEUTROPHIL 4.5 X10E9/L Normal 1.5-6.6 [facility] Comment on above: Performed By: #### C BCA, CMP, , 2776-04 ####[facility] ([id number])[address] [place] [address] Basophils/100 WBC (Bld) 1.0 % Normal [facility] Comment on above: Performed By: #### C BCA, CMP, , 2776-04 ####[facility] ([id number])[address] [place] [address] Eosinophils (Bld) [#/Vol] 0.4 10*3/uL Normal 0.0-0.4 [facility] Comment on above: Performed By: #### C EDEL POOLE, , 2776-04 ####[facility] ([id number])[address] [place] [address] Eosinophils/100 WBC (Bld) 5.1 % Normal [facility] Comment on above: Performed By: #### Shahla POOLE [facility] [address], , 2776-04 ####[facility] ([id number])[address] [place] [address] Erythrocyte distribution width (RBC) [Ratio] 15.0 % Normal 11.5-15.0 [facility] Comment on above: Performed By: #### Shahla POOLE [facility], , 2776-04 ####[facility] ([id number])[address] [place] [address] Hematocrit (Bld) [Volume fraction] 31.7 % Low 35-47 [facility] Comment on above: Performed By: #### Shahla POOLE CMP, , 2776-04 ####[facility] ([id number])[address] [place] [address] Hemoglobin (Bld) [Mass/Vol] 10.5 g/dL Low 11.7-15.5 [facility] Comment on above: Performed By: #### Shahla POOLE, CMP, , 2776-04 ####[facility] ([id number])[address] [place] [address] Lymphocytes (Bld) [#/Vol] 2.1 10*3/uL Normal 1.0-3.5 [facility] Comment on above: Performed By: #### C BCA, CMP, , 2776-04 ####[facility] ([id number])[address] [place] [address] Lymphocytes/100 WBC (Bld) 27.3 % Normal [facility] Comment on above: Performed By: #### Shahla POOLE, CMP, , 2776-04 ####[facility] ([id number])[address] [place] [address] MCH (RBC) [Entitic mass] 27.7 pg Normal 27-34 [facility] Comment on above: Performed By: #### Shahla POOLE CMP, , 2776-04 ####[facility] ([id number])[address] [place] [address] MCHC (RBC) [Mass/Vol] 33.1 g/dL Normal 32-36 [facility] Comment on above: Performed By: #### Shahla POOLE, CMP, , 2776-04 ####[facility] ([id number])[address] [place] [address] MCV (RBC) [Entitic vol] 84 fL Normal 80-100 [facility] Comment on above: Performed By: #### Shahla POOLE CMP, , 2776-04 ####[facility] ([id number])[address] [place] [address] Monocytes (Bld) [#/Vol] 0.7 10*3/uL Normal 0-0.9 [facility] Comment on above: Performed By: #### Shahla POOLE, CMP, , 2776-04 ####[facility] ([id number])[address] [place] [address] Monocytes/100 WBC (Bld) 9.1 % Normal [facility] Comment on above: Performed By: #### Shahla POOLE CMP, , 2776-04 ####[facility] ([id number])[address] [place] [address] Neutrophils/100 WBC (Bld) 57.5 % Normal [facility] Comment on above: Performed By: #### C VIRGILIO CMP, , 2776-04 ####[facility] ([id number])[address] [place] [address] Platelet mean volume (Bld) [Entitic vol] 8.9 fL Normal 7-12 [facility] Comment on above: Performed By: #### C VIRGILIO CMP, , 2776-04 ####[facility] ([id number])[address] [place] [address] Platelets (Bld) [#/Vol] 328 10*3/uL Normal 150-450 [facility] Comment on above: Performed By: #### C VIRGILIO, CMP, , 2776-04 ####[facility] ([id number])[address] [place] [address] RBC COUNT 3.77 X10E12/L Low 3.80-5.20 [facility] Comment on above: Performed By: #### C VIRGILIO CMP, , 2776-04 ####[facility] ([id number])[address] [place] [address] WBC (Bld) [#/Vol] 7.8 10*3/uL Normal 4.0-11.0 [facility] Comment on above: Performed By: #### Shahla POOLE, CMP, , 2776-04 ####[facility] ([id number])[address] [place] [address] COMPREHENSIVE METABOLIC PANE Phu 10-18-2023 Albumin [Mass/Vol] 3.1 g/dL Low 3.2-5.3 [facility] Comment on above: Performed By: #### C BCA, CMP, , 2776-04 ####[facility] ([id number])[address] [place] [address] ALP [Catalytic activity/Vol] 57 U/L Normal 39-130 [facility] Comment on above: Performed By: #### C BCA, CMP, , 2776-04 ####[facility] ([id number])[address] [place] [address] ALT [Catalytic activity/Vol] 10 U/L Normal 0-31 [facility] Comment on above: Performed By: #### C BCA, CMP, , 2776-04 ####[facility] ([id number])[address] [place] [address] Anion gap [Moles/Vol] 11 mmol/L Normal 5-15 [facility] Comment on above: Performed By: #### C BCA, CMP, , 2776-04 ####[facility] ([id number])[address] [place] [address]851 AST [Catalytic activity/Vol] 14 U/L Normal 0-41 [facility] Comment on above: Performed By: #### C BCA, CMP, , 2776-04 ####[facility] ([id number])[address] [place] [address] [place] [address] Bilirubin [Mass/Vol] 0.7 mg/dL Normal 0.3-1.2 [facility] Comment on above: Performed By: #### C BCA, CMP, , 2776-04 ####[facility] ([id number])[address] [place] [address] [place] [address] Calcium [Mass/Vol] 9.3 mg/dL Normal 8.5-10.5 [facility] Comment on above: Performed By: #### C BCA, CMP, , 2776-04 ####[facility] ([id number])[address] [place] [address] Chloride [Moles/Vol] 97 mmol/L Low 98-109 [facility] Comment on above: Performed By: #### C BCA, CMP, , 2776-04 ####[facility] ([id number])[address] [place] [address] 72066 CO2 [Moles/Vol] 29 mmol/L Normal 22-32 [facility] Comment on above: Performed By: #### C BCA, CMP, , 2776-04 ####[facility] ([id number])[address] [place] [address]35 Creatinine [Mass/Vol] 2.98 mg/dL High 0.40-1.00 [facility] Comment on above: Result Comment: METH OD TRACEABLE TO IDMS STANDARD Performed By: #### C VIRGILIO, CMP, , 2776-04 ####[facility] ([id number])[address] [place] [address]8914 GFR/1.73 sq M.predicted among non-blacks MDRD (S/P/Bld) [Vol rate/Area] 18 mL/min/{1.73_m2} Low >59 [facility] Comment on above: Result Comment: Reported eGFR is based on the CKD-EPI 1 equation that does not use a race coefficient. Performed By: #### C BCA, CMP, , 2776-04 ####[facility] ([id number])[address] [place] [address] Glucose [Mass/Vol] 92 mg/dL Normal 65-99 [facility] Comment on above: Performed By: #### C BCA, CMP, , 2776-04 ####[facility] ([id number])[address] [place] [address] 10897 Potassium [Moles/Vol] 4.2 mmol/L Normal 3.5-5.0 [facility] Comment on above: Performed By: #### C EDEL POOLE, , 2776-04 ####[facility] ([id number])[address] [place] [address] 44777 Protein [Mass/Vol] 6.0 g/dL Normal 6.0-8.0 [facility] Comment on above: Performed By: #### C EDEL POOLE, , 2776-04 ####[facility] ([id number])[address] [place] [address] 92714 Sodium [Moles/Vol] 137 mmol/L Normal 134-146 [facility] Comment on above: Performed By: #### C EDEL POOLE, , 2776-04 ####[facility] ([id number])[address] [place] [address]807 Urea nitrogen [Mass/Vol] 37 mg/dL High 5-23 [facility] Comment on above: Performed By: #### C EDEL POOLE, , 2776-04 ####[facility] ([id number])[address] [place] [address] Calcium.ionized (Bld) [Moles /Vol]on 10-18-2023 PORTABLE ICA 4.7 mg/dL Normal 4.5-5.3 [facility] Comment on above: Performed By: #### 8 9579-7 #### [facility] ([id number]) [address] [place] [address] MAGNESIUMon 10-18-2023 Magnesium [Mass/Vol] 2.0 mg/dL Normal 1.8-2.6 [facility] Comment on above: Performed By: #### C EDEL POOLE, , 2776-04 ####[facility] ([id number])[address] [place] [address] 02391 Myeloperoxidase IgG Qn (S)on 10-18-2023 Myeloperoxidase IgG >8.0 High <0.4 (Negative) [facility] Comment on above: Result Comment: NOTE Interpretation: Positive (>=1.0) Test Performed by: [facility] [address] [id number] Calciner Feeder: Ledy Son Ph.D.; CLIA# [id number] Performed By: #### 8 9579-7 #### [facility] ([id number]) [address] [place] [address] PHOSPHORUSon 10-18-2023 Phosphate [Mass/Vol] 5.1 mg/dL High 2.4-4.9 [facility] Comment on above: Performed By: #### C BCA, CMP, 02599-8, 2777-1 ####[facility] ([id number])[address] [place] [address] 22404 CBC AND AUTO DIFFon 10-17-19 ABSOLUTE BASOPHIL 0.1 X10E9/L Normal 0.0-0.2 [facility] Comment on above: Performed By: #### C BCA, BMP, 94652-1, 65984-6, 93840-0 #### [facility] ([id number]) [address] [place] [address] 20407 ABSOLUTE NEUTROPHIL 4.9 X10E9/L Normal 1.5-6.6 [facility] Comment on above: Performed By: #### C BCA, BMP, 94123-2, 55264-6, 02801-7 #### [facility] ([id number]) [address] [place] [address] 37546 Basophils/100 WBC (Bld) 0.7 % Normal [facility] Comment on above: Performed By: #### C BCA, BMP, 73477-3, 85302-1, 83894-0 #### [facility] ([id number]) [address] [place] [address] 70979 Eosinophils (Bld) [#/Vol] 0.3 10*3/uL Normal 0.0-0.4 [facility] Comment on above: Performed By: #### C BCA, BMP, 43787-8, 07269-2, 36716-3 #### [facility] ([id number]) [address] [place] [address] 94611 Eosinophils/100 WBC (Bld) 4.3 % Normal [facility] Comment on above: Performed By: #### C BCA, BMP, , 31200-6, 30187-9 #### [facility] ([id number]) [address] [place] [address] 88762 Erythrocyte distribution width (RBC) [Ratio] 14.7 % Normal 11.5-15.0 [facility] Comment on above: Performed By: #### C VIRGILIO, BMP, , 90815-5, 86764-2 #### [facility] ([id number]) [address] [place] [address] 40772 Hematocrit (Bld) [Volume fraction] 30.3 % Low 35-47 [facility] Comment on above: Performed By: #### C BCA, BMP, 58267-1, 33579-2, 73215-0 #### [facility] ([id number]) [address] [place] [address] 75636 Hemoglobin (Bld) [Mass/Vol] 10.1 g/dL Low 11.7-15.5 [facility] Comment on above: Performed By: #### C BCA, BMP, 29033-0, 99328-0, 07081-1 #### [facility] ([id number]) [address] [place] [address] 45634 Lymphocytes (Bld) [#/Vol] 1.9 10*3/uL Normal 1.0-3.5 [facility] Comment on above: Performed By: #### C VIRGILIO, BMP, , 92116-0, 03667-1 #### [facility] ([id number]) [address] [place] [address] 63302 Lymphocytes/100 WBC (Bld) 24.6 % Normal [facility] Comment on above: Performed By: #### C VIRGILIO, BMP, , 90617-8, 31686-1 #### [facility] ([id number]) [address] [place] [address] 10554 MCH (RBC) [Entitic mass] 27.9 pg Normal 27-34 [facility] Comment on above: Performed By: #### Shahla POOLE, BMP, , 41940-2, 76950-1 #### [facility] ([id number]) [address] [place] [address] 53770 MCHC (RBC) [Mass/Vol] 33.4 g/dL Normal 32-36 [facility] Comment on above: Performed By: #### Shahla POOLE, BMP, , 18720-2, 12603-3 #### [facility] ([id number]) [address] [place] [address] 97329 MCV (RBC) [Entitic vol] 84 fL Normal 80-100 [facility] Comment on above: Performed By: #### Shahla POOLE, BMP, , 97880-0, 65090-2 #### [facility] ([id number]) [address] [place] [address] 93665 Monocytes (Bld) [#/Vol] 0.6 10*3/uL Normal 0-0.9 [facility] Comment on above: Performed By: #### Shahla POOLE, BMP, , 46421-1, 75459-0 #### [facility] ([id number]) [address] [place] [address] 40015 Monocytes/100 WBC (Bld) 8.3 % Normal [facility] Comment on above: Performed By: #### Shahla BCA, BMP, 29662-7, 25982-6, 13760-7 #### [facility] ([id number]) [address] [place] [address] 09493 Neutrophils/100 WBC (Bld) 62.1 % Normal [facility] Comment on above: Performed By: #### Shahla BCA, BMP, 35986-1, 88300-6, 79796-8 #### [facility] ([id number]) [address] [place] [address] 75997 Platelet mean volume (Bld) [Entitic vol] 9.0 fL Normal 7-12 [facility] Comment on above: Performed By: #### Shahla BCA, BMP, , 22952-9, 63378-0 #### [facility] ([id number]) [address] [place] [address] 77581 Platelets (Bld) [#/Vol] 278 10*3/uL Normal 150-450 [facility] Comment on above: Performed By: #### Shahla POOLE, BMP, 37871-0, 67696-1, 54294-3 #### [facility] ([id number]) [address] [place] [address] 35095 RBC COUNT 3.62 X10E12/L Low 3.80-5.20 [facility] Comment on above: Performed By: #### Shahla BCA, BMP, , 48802-0, 02752-1 #### [facility] ([id number]) [address] [place] [address] 09864 WBC (Bld) [#/Vol] 7.9 10*3/uL Normal 4.0-11.0 [facility] Comment on above: Performed By: #### C BCA, BMP, 90396-8, 10943-9, 15337-0 #### [facility] ([id number]) [address] [place] [address] 66485 COMPREHENSIVE METABOLIC PANE Phu 10-17-2023 Albumin [Mass/Vol] 3.0 g/dL Low 3.2-5.3 [facility] Comment on above: Performed By: #### C BCA, BMP, 20471-4, 61167-8, 70635-0 #### [facility] ([id number]) [address] [place] [address] 42518 ALP [Catalytic activity/Vol] 56 U/L Normal 39-130 [facility] Comment on above: Performed By: #### C BCA, BMP, 31787-8, 54221-1, 48545-8 #### [facility] ([id number]) [address] [place] [address] 79275 ALT [Catalytic activity/Vol] 10 U/L Normal 0-31 [facility] Comment on above: Performed By: #### C BCA, BMP, 39645-6, 70582-3, 32253-3 #### [facility] ([id number]) [address] [place] [address] 62557 Anion gap [Moles/Vol] 10 mmol/L Normal 5-15 [facility] Comment on above: Performed By: #### C BCA, BMP, 03458-1, 48430-4, 26604-4 #### [facility] ([id number]) [address] [place] [address] 17221 AST [Catalytic activity/Vol] 14 U/L Normal 0-41 [facility] Comment on above: Performed By: #### C BCA, BMP, 75291-5, 79336-6, 54983-2 #### [facility] ([id number]) [address] [place] [address] 91119 Bilirubin [Mass/Vol] 0.7 mg/dL Normal 0.3-1.2 [facility] Comment on above: Performed By: #### C BCA, BMP, 53221-4, 52219-1, 81657-1 #### [facility] ([id number]) [address] [place] [address] 95643 Calcium [Mass/Vol] 8.8 mg/dL Normal 8.5-10.5 [facility] Comment on above: Performed By: #### C BCA, BMP, 30900-1, 14315-4, 51910-6 #### [facility] ([id number]) [address] [place] [address] 74926 Chloride [Moles/Vol] 101 mmol/L Normal 98-109 [facility] Comment on above: Performed By: #### C BCA, BMP, 89071-1, 99171-5, 36662-7 #### [facility] ([id number]) [address] [place] [address] 23473 CO2 [Moles/Vol] 28 mmol/L Normal 22-32 [facility] Comment on above: Performed By: #### C BCA, BMP, 68856-1, 88171-8, 26542-8 #### [facility] ([id number]) [address] [place] [address] 69806 Creatinine [Mass/Vol] 2.77 mg/dL High 0.40-1.00 [facility] Comment on above: Result Comment: METH OD TRACEABLE TO IDMS STANDARD Performed By: #### C BCA, BMP, 58928-9, 88029-6, 31588-2 #### [facility] ([id number]) [address] [place] [address] 09478 GFR/1.73 sq M.predicted among non-blacks MDRD (S/P/Bld) [Vol rate/Area] 19 mL/min/{1.73_m2} Low >59 [facility] Comment on above: Result Comment: Reported eGFR is based on the CKD-EPI 2020 equation that does not use a race coefficient. Performed By: #### C MARIO POOLE, 65563-8, 23597-9, 13602-0 #### [facility] ([id number]) [address] [place] [address] 27532 Glucose [Mass/Vol] 97 mg/dL Normal 65-99 [facility] Comment on above: Performed By: #### C VIRGILIO, MARIO, 25460-5, 02606-9, 50904-0 #### [facility] ([id number]) [address] [place] [address] 95095 Potassium [Moles/Vol] 3.6 mmol/L Normal 3.5-5.0 [facility] Comment on above: Performed By: #### C VIRGILIO, MARIO, , 50800-1, 42699-4 #### [facility] ([id number]) [address] [place] [address] 54107 Protein [Mass/Vol] 5.7 g/dL Low 6.0-8.0 [facility] Comment on above: Performed By: #### C MARIO POOLE, 14272-3, 37729-3, 87463-0 #### [facility] ([id number]) [address] [place] [address] 54591 Sodium [Moles/Vol] 139 mmol/L Normal 134-146 [facility] Comment on above: Performed By: #### C VIRGILIO, BMP, 03535-1, 95123-0, 12428-4 #### [facility] ([id number]) [address] [place] [address] 29363 Urea nitrogen [Mass/Vol] 26 mg/dL High 5-23 [facility] Comment on above: Performed By: #### C VIRGILIO, BMP, 24372-3, 91471-7, 07515-5 #### [facility] ([id number]) [address] [place] [address] 53783 Calcium.ionized (Bld) [Moles /Vol]on 10-17-2023 PORTABLE ICA 4.7 mg/dL Normal 4.5-5.3 [facility] Comment on above: Performed By: #### C VIRGILIO, BMP, 58716-1, 87433-3, 65975-4 #### [facility] ([id number]) [address] [place] [address] 23504 FECAL OCCULT BLOODon 024 Hemoglobin.gastrointe stinal Ql (Stl) Negative Normal NEG [facility] Comment on above: Performed By: #### 2 335-8 ####[facility] ([id number])[address] [place] [address] 71672 MAGNESIUMon 10-17-2023 Magnesium [Mass/Vol] 2.0 mg/dL Normal 1.8-2.6 [facility] Comment on above: Performed By: #### C VIRGILIO, MARIO, 47249-7, 63436-2, 00590-2 #### [facility] ([id number]) [address] [place] [address] 08941 NM VENTILATION PERFUSION CHAZ G SCANon 10-17-2023 [...] Lowery MD on 10/17/2023 9:13 AM Normal [facility] PHOSPHORUSon 10-17-2023 Phosphate [Mass/Vol] 4.1 mg/dL Normal 2.4-4.9 [facility] Comment on above: Performed By: #### C BCA, BMP, , 48669-1, 76633-2 #### [facility] ([id number]) [address] [place] [address] 87095 POTASSIUMon 10-17-2023 Potassium [Moles/Vol] 4.2 mmol/L Normal 3.5-5.0 [facility] Comment on above: Performed By: #### 2 823-3 ####[facility] ([id number])[address] [place] [address] 10775 THYROID PROFILEon 10-17-2023 Free T4 [Mass/Vol] 1.19 ng/dL Normal 0.61-1.60 [facility] Comment on above: Performed By: #### C BCA, BMP, , 44559-8, 26977-6 #### [facility] ([id number]) [address] [place] [address] 97414 TSH 2.17 uIU/mL Normal 0.49-4.67 [facility] Comment on above: Performed By: #### C BCA, BMP, , 77481-9, 78211-5 #### [facility] ([id number]) [address] [place] [address] 04967 24 HR URINE CREATININEon URINE CREATININE 1.38 g/24h Normal 0.80-1.80 [facility] Comment on above: Performed By: #### U CRMARIONO ####[facility] ([id number])[address] [place] [address], [address] [place] [address] 01249 24 HR URINE TOTAL PROTEINon 10-16-2023 URINE TOTAL PROTEIN 6380 mg/24h High 0-150 [facility] Comment on above: Performed By: #### U CR, UPRO ####[facility] ([id number])[address] [facility], [address] [place] [address] CBC AND AUTO DIFFon 10-16-19 ABSOLUTE BASOPHIL 0.0 X10E9/L Normal 0.0-0.2 [facility] Comment on above: Performed By: #### C BCA, BMP, 08582-0, 95589-2, 19557-5 #### [facility] ([id number]) [address] [place] [address] 13899 ABSOLUTE NEUTROPHIL 4.9 X10E9/L Normal 1.5-6.6 [facility] Comment on above: Performed By: #### C BCA, BMP, 47120-7, 28027-7, 92336-8 #### [facility] ([id number]) [address] [place] [address] 26986 Basophils/100 WBC (Bld) 0.6 % Normal [facility] Comment on above: Performed By: #### C BCA, BMP, 34635-3, 28114-6, 46509-0 #### [facility] ([id number]) [address] [place] [address] 70095 Eosinophils (Bld) [#/Vol] 0.3 10*3/uL Normal 0.0-0.4 [facility] Comment on above: Performed By: #### C BCA, BMP, 34739-2, 33683-3, 61637-1 #### [facility] ([id number]) [address] [place] [address] 33035 Eosinophils/100 WBC (Bld) 4.2 % Normal [facility] Comment on above: Performed By: #### C BCA, BMP, 86011-0, 32417-2, 08196-1 #### [facility] ([id number]) [address] [place] [address] 95784 Erythrocyte distribution width (RBC) [Ratio] 14.8 % Normal 11.5-15.0 [facility] Comment on above: Performed By: #### C BCA, BMP, , 77439-7, 82108-0 #### [facility] ([id number]) [address] [place] [address] 30687 Hematocrit (Bld) [Volume fraction] 28.5 % Low 35-47 [facility] Comment on above: Performed By: #### C BCA, BMP, , 16897-8, 16305-7 #### [facility] ([id number]) [address] [place] [address] 34708 Hemoglobin (Bld) [Mass/Vol] 9.5 g/dL Low 11.7-15.5 [facility] Comment on above: Performed By: #### Shahla BCA, BMP, , 42558-3, 91863-2 #### [facility] ([id number]) [address] [place] [address] 80164 Lymphocytes (Bld) [#/Vol] 2.1 10*3/uL Normal 1.0-3.5 [facility] Comment on above: Performed By: #### C BCA, BMP, , 21884-9, 18211-6 #### [facility] ([id number]) [address] [place] [address] 61795 Lymphocytes/100 WBC (Bld) 26.6 % Normal [facility] Comment on above: Performed By: #### C BCA, BMP, , 19349-5, 10063-5 #### [facility] ([id number]) [address] [place] [address] 86824 MCH (RBC) [Entitic mass] 27.7 pg Normal 27-34 [facility] Comment on above: Performed By: #### C BCA, BMP, , 12575-6, 21467-7 #### [facility] ([id number]) [address] [place] [address] 43245 MCHC (RBC) [Mass/Vol] 33.6 g/dL Normal 32-36 [facility] Comment on above: Performed By: #### Shahla BCA, BMP, 35512-6, 56297-7, 11412-3 #### [facility] ([id number]) [address] [place] [address] 03034 MCV (RBC) [Entitic vol] 83 fL Normal 80-100 [facility] Comment on above: Performed By: #### Shahla BCA, BMP, , 16715-7, 45958-8 #### [facility] ([id number]) [address] [place] [address] 04791 Monocytes (Bld) [#/Vol] 0.7 10*3/uL Normal 0-0.9 [facility] Comment on above: Performed By: #### C BCA, BMP, 78090-3, 41042-6, 58734-0 #### [facility] ([id number]) [address] [place] [address] 55362 Monocytes/100 WBC (Bld) 8.2 % Normal [facility] Comment on above: Performed By: #### Shahla BCA, BMP, 64866-7, 87341-0, 69207-4 #### [facility] ([id number]) [address] [place] [address] 80748 Neutrophils/100 WBC (Bld) 60.4 % Normal [facility] Comment on above: Performed By: #### Shahla BCA, BMP, , 35336-4, 02713-3 #### [facility] ([id number]) [address] [place] [address] 16632 Platelet mean volume (Bld) [Entitic vol] 8.9 fL Normal 7-12 [facility] Comment on above: Performed By: #### C BCA, BMP, 49972-1, 35091-7, 91596-0 #### [facility] ([id number]) [address] [place] [address] 98523 Platelets (Bld) [#/Vol] 252 10*3/uL Normal 150-450 [facility] Comment on above: Performed By: #### C BCA, BMP, 63266-5, 02236-1, 33386-0 #### [facility] ([id number]) [address] [place] [address] 60686 RBC COUNT 3.45 X10E12/L Low 3.80-5.20 [facility] Comment on above: Performed By: #### C BCA, BMP, 65640-1, 49525-9, 66781-9 #### [facility] ([id number]) [address] [place] [address] 02137 WBC (Bld) [#/Vol] 8.0 10*3/uL Normal 4.0-11.0 [facility] Comment on above: Performed By: #### C BCA, BMP, 83101-4, 83953-6, 01839-0 #### [facility] ([id number]) [address] [place] [address] 93537 COMPREHENSIVE METABOLIC PANE Phu 10-16-2023 Albumin [Mass/Vol] 2.7 g/dL Low 3.2-5.3 [facility] Comment on above: Performed By: #### C BCA, BMP, 80049-5, 28079-0, 64945-3 #### [facility] ([id number]) [address] [place] [address] 51497 ALP [Catalytic activity/Vol] 55 U/L Normal 39-130 [facility] Comment on above: Performed By: #### C BCA, BMP, 60850-1, 52405-0, 08296-9 #### [facility] ([id number]) [address] [place] [address] 14723 ALT [Catalytic activity/Vol] 9 U/L Normal 0-31 [facility] Comment on above: Performed By: #### C BCA, BMP, 72121-6, 08187-8, 96459-8 #### [facility] ([id number]) [address] [place] [address] 80208 Anion gap [Moles/Vol] 8 mmol/L Normal 5-15 [facility] Comment on above: Performed By: #### C BCA, BMP, 66525-1, 48095-6, 58699-4 #### [facility] ([id number]) [address] [place] [address] 15111 AST [Catalytic activity/Vol] 13 U/L Normal 0-41 [facility] Comment on above: Performed By: #### C BCA, BMP, 30631-2, 54639-3, 79668-4 #### [facility] ([id number]) [address] [place] [address] 62462 Bilirubin [Mass/Vol] 0.4 mg/dL Normal 0.3-1.2 [facility] Comment on above: Performed By: #### C BCA, BMP, 19913-2, 46055-4, 52908-0 #### [facility] ([id number]) [address] [place] [address] 38386 Calcium [Mass/Vol] 8.4 mg/dL Low 8.5-10.5 [facility] Comment on above: Performed By: #### C BCA, BMP, 80023-4, 17497-8, 26117-6 #### [facility] ([id number]) [address] [place] [address] 39476 Chloride [Moles/Vol] 101 mmol/L Normal 98-109 [facility] Comment on above: Performed By: #### C BCA, BMP, , 09205-4, 81556-8 #### [facility] ([id number]) [address] [place] [address] 25421 CO2 [Moles/Vol] 28 mmol/L Normal 22-32 [facility] Comment on above: Performed By: #### C BCA, BMP, , 25149-7, 38847-9 #### [facility] ([id number]) [address] [place] [address] 24711 Creatinine [Mass/Vol] 2.63 mg/dL High 0.40-1.00 [facility] Comment on above: Result Comment: METH OD TRACEABLE TO IDMS STANDARD Performed By: #### C VRIGILIO, BMP, , 30833-7, 84321-1 #### [facility] ([id number]) [address] [place] [address] 12121 GFR/1.73 sq M.predicted among non-blacks MDRD (S/P/Bld) [Vol rate/Area] 20 mL/min/{1.73_m2} Low >59 [facility] Comment on above: Result Comment: Reported eGFR is based on the CKD-EPI 2020 equation that does not use a race coefficient. Performed By: #### C BCA, BMP, , 65868-6, 59291-1 #### [facility] ([id number]) [address] [place] [address] 20889 Glucose [Mass/Vol] 107 mg/dL High 65-99 [facility] Comment on above: Performed By: #### C BCA, BMP, , 97296-0, 77903-0 #### [facility] ([id number]) [address] [place] [address] 83106 Potassium [Moles/Vol] 3.2 mmol/L Low 3.5-5.0 [facility] Comment on above: Performed By: #### C BCA, BMP, 89969-5, 11554-5, 89500-7 #### [facility] ([id number]) [address] [place] [address] 06389 Protein [Mass/Vol] 5.4 g/dL Low 6.0-8.0 [facility] Comment on above: Performed By: #### C BCA, BMP, 83583-9, 26883-0, 52291-9 #### [facility] ([id number]) [address] [place] [address] 88202 Sodium [Moles/Vol] 137 mmol/L Normal 134-146 [facility] Comment on above: Performed By: #### C BCA, BMP, 56771-6, 38380-5, 03653-4 #### [facility] ([id number]) [address] [place] [address] 54572 Urea nitrogen [Mass/Vol] 23 mg/dL Normal 5-23 [facility] Comment on above: Performed By: #### C BCA, BMP, 40511-4, 89303-4, 46073-5 #### [facility] ([id number]) [address] [place] [address] 17052 Calcium.ionized (Bld) [Moles /Vol]on 10-16-2023 PORTABLE ICA 4.6 mg/dL Normal 4.5-5.3 [facility] Comment on above: Performed By: #### C BCA, BMP, 38225-0, 29421-5, 36567-5 #### [facility] ([id number]) [address] [place] [address] 16609 Clinical Pathologyon 024 Clinical Pathology Normal [facility] Comment on above: Result Comment: [facility] [address] [place] [address] Clinical Pathology Report Patient Name:DANIELLE MONTANA:1965 (Age: 58)Gender:FTaken:4Reported:4Physician(s):Irving Flores MD ([phone])Copy To: Rec. 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 No monoclonal protein identified. Report Electronically Signed Out df/4Dnicci Gomez MD Interpretation performed at [facility], [address] [place] [address], License number: [id number]. Clinical History D17.9, I16.0, E87.6. URINE PROTEIN ELECTROPHORESIS SAMPLE NUMBER: [id number] RELATIVE ELECTROPHORETIC CONCENTRATIONS (%) ? 100.0 Urine Protein 1410 mg/L (Electrophoretic gels and densitometric tracings on file in lab.) Specimen(s) Received Urine Protein Electrophoresis Fee Codes(s): 1; 35148-55 Fibrin D-dimer DDU (PPP) [Ma ss/Vol]on 10-16-2023 D DIMER 499 ng/mL DDU High <255 [facility] Comment on above: Result Comment: [...] level. Performed By: #### C BCA, BMP, 41378-4, 49316-9, 09271-7 #### [facility] ([id number]) [address] [place] [address], [place] [address] HGB A1C (GLYCO-HGB)on 2023 Glucose [Mass/Vol] 111 mg/dL Normal [facility] Comment on above: Performed By: #### C BCA, BMP, 86453-4, 99675-8, 16331-4 #### [facility] ([id number]) [address] [place] [address] 32756 HbA1c (Bld) [Mass fraction] 5.5 % Normal 4.4-5.6 [facility] Comment on above: Result Comment: NOTE ADA Guidelines Result HgbA1c Normal : less than 5.7 % Prediabetes : 5.7 % to 6.4 % Diabetes : > 6.4 % Use with caution in patients with abnormal hemoglobin variants as the half-life of red blood cells and in vivo glycation rates are affected. Performed By: #### C MARIO POOLE, , 83211-6, 62346-5 #### [facility] ([id number]) [address] [place] [address] 95799 MAGNESIUMon 10-16-2023 Magnesium [Mass/Vol] 2.1 mg/dL Normal 1.8-2.6 [facility] Comment on above: Performed By: #### C VIRGILIO BMP, , 94481-5, 13911-0 #### [facility] ([id number]) [address] [place] [address] 16657 MICROALBUMIN - ALBUMIN:CREAT ININE URINE RATIOon 10-16-2023 ALB/CREAT RATIO 3392.0 mg/g creat High 0.0-30.0 [facility] Comment on above: Performed By: #### C BCA, BMP, , 21103-0, 32626-3 #### [facility] ([id number]) [address] [place] [address] 42379 Albumin DL <= 20 mg/L (U) [Mass/Vol] 88.6 mg/dL High 0.0-1.9 [facility] Comment on above: Performed By: #### C BCA, BMP, , 61809-1, 90888-0 #### [facility] ([id number]) [address] [place] [address] 22873 URINE CREAT 26.12 mg/dL Normal [facility] Comment on above: Performed By: #### C BCA, BMP, 63968-5, 62562-3, 46738-7 #### [facility] ([id number]) [address] [place] [address] 41385 PHOSPHORUSon 10-16-2023 Phosphate [Mass/Vol] 4.3 mg/dL Normal 2.4-4.9 [facility] Comment on above: Performed By: #### C BCA, BMP, 50983-8, 90004-5, 89847-9 #### [facility] ([id number]) [address] [place] [address] 54016 POTASSIUMon 10-16-2023 Potassium [Moles/Vol] 4.8 mmol/L Normal 3.5-5.0 [facility] Comment on above: Result Comment: SPEC IMEN HEMOLYZED, RESULTS INCREASED Performed By: #### C BCA, BMP, 39293-7, 30815-7, 89864-4 #### [facility] ([id number]) [address] [place] [address] 93515 PROTEIN CREAT RATIOon 2023 RANDOM URINE PROTEIN 1270 mg/L High <120 [facility] Comment on above: Performed By: #### C BCA, BMP, 62472-0, 00710-7, 82780-7 #### [facility] ([id number]) [address] [place] [address] 81882 U/PRO/VINYL TOP INSTALLER RATIO CALC 4.72 High <0.2 [facility] Comment on above: Result Comment: Neph rotic Syndrome is associated with ratios >3.5 Performed By: #### C BCA, BMP, 17910-3, 02645-4, 69441-3 #### [facility] ([id number]) [address] [place] [address] 29400 URINE CREATININE,RDM 26.92 mg/dL Normal [facility] Comment on above: Performed By: #### C BCA, BMP, 14347-0, 15060-0, 17199-0 #### [facility] ([id number]) [address] [place] [address] 78097 URINALYSISon 10-16-2023 Bilirubin Ql (U) Negative Normal NEG [facility] Comment on above: Performed By: #### C BCA, BMP, 42161-8, 05041-7, 14387-7 #### [facility] ([id number]) [address] [place] [address] 96511 BLOOD/HGB Large Abnormal NEG [facility] Comment on above: Performed By: #### C BCA, BMP, 15880-8, 94748-7, 04919-8 #### [facility] ([id number]) [address] [place] [address] [place] [address] Color (U) YELLOW Normal YELLOW [facility] Comment on above: Performed By: #### C BCA, BMP, 90048-3, 27004-4, 53727-2 #### [facility] ([id number]) [address] [place] [address] 85370 Glucose Ql (U) Negative Normal NEG [facility] Comment on above: Performed By: #### C BCA, BMP, 13418-1, 34293-3, 53852-3 #### [facility] ([id number]) [address] [place] [address] 13757 Ketones Ql (U) Negative Normal NEG [facility] Comment on above: Performed By: #### C BCA, BMP, 90000-0, 75917-2, 09852-4 #### [facility] ([id number]) [address] [place] [address] 78800 Leukocyte esterase Test strip Ql (U) Negative Normal NEG [facility] Comment on above: Performed By: #### C VIRGILIO, BMP, 28205-6, 70255-2, 27766-6 #### [facility] ([id number]) [address] [place] [address] 12192 Nitrite Ql (U) Negative Normal NEG [facility] Comment on above: Performed By: #### Shahla BCA, BMP, 50581-3, 72243-9, 40270-9 #### [facility] ([id number]) [address] [place] [address] 11894 pH (U) 6.0 [pH] Normal 5.0-8.5 [facility] Comment on above: Performed By: #### Shahla POOLE, BMP, 62322-2, 35488-4, 05742-8 #### [facility] ([id number]) [address] [place] [address] 36140 Protein Ql (U) 100 mg/dL Abnormal NEG [facility] Comment on above: Performed By: #### C VIRGILIO, BMP, , 37665-8, 70904-0 #### [facility] ([id number]) [address] [place] [address] 62994 R.B.CELLS 80 /hpf High 0-5 [facility] Comment on above: Performed By: #### C VIRGILIO, BMP, 59009-7, 69991-7, 18797-8 #### [facility] ([id number]) [address] [place] [address] 96689 Specific gravity (U) [Rel density] 1.015 Normal 1.003-1.035 [facility] Comment on above: Performed By: #### C VIRGILIO, BMP, 99728-5, 10433-3, 51973-7 #### [facility] ([id number]) [address] [place] [address] 97882 SQUAMOUS EPITHELIUM 2 /hpf Normal 0-5 [facility] Comment on above: Performed By: #### C VIRGILIO, BMP, , 86830-2, 22472-3 #### [facility] ([id number]) [address] [place] [address] 89058 TURBIDITY CLEAR Normal CLEAR [facility] Comment on above: Performed By: #### C VIRGILIO, BMP, , 81430-5, 87163-8 #### [facility] ([id number]) [address] [place] [address] 20335 Urobilinogen Qn (U) 0.2 {Micaela'U}/dL Normal <1.1 [facility] Comment on above: Performed By: #### C VIRGILIO, BMP, , 67358-6, 45983-1 #### [facility] ([id number]) [address] [place] [address] 52075 W.B.CELLS 5 /hpf Normal 0-5 [facility] Comment on above: Performed By: #### C VIRGILIO, BMP, , 32391-2, 92334-5 #### [facility] ([id number]) [address] [place] [address] 74070 URINE PROTEIN ELECTROPHORESI Son 10-15-2023 UPREL INTERP SEE SEPARATE REPORT Normal [facility] URINE VOLUME AND TIMEon 09-23 TIME 24 h Normal [facility] Comment on above: Performed By: #### U CR, UPRO ####[facility] ([id number])[address] [address] TOTAL VOLUME 4400 mL Normal [facility] Comment on above: Performed By: #### U CR, UPRO ####[facility] ([id number])[address] [place] [address] US RETROPERITONEAL COMPLETEo n 10-16-2023 US RETROPERITONEAL [...] Unger MD on 10/16/2023 9:42 AM Normal [facility] Basement membrane IgG Qn (S) on 10-15-2023 Glomerular Base Memb IgG <0.2 Normal <1.0 (Negative) [facility] Comment on above: Result Comment: NOTE Test Performed by: [address] [place] [address] Calciner Feeder: Ledy Son Ph.D.; CLIA# [id number] Performed By: #### C VIRGILIO, BMP, 91265-0, 53498-9, 25589-1 #### [facility] ([id number]) [address] [place] [address] 44630 CBC AND AUTO DIFFon 10-15-19 ABSOLUTE BASOPHIL 0.1 X10E9/L Normal 0.0-0.2 [facility] Comment on above: Performed By: #### C VIRGILIO, CMP, 98980-9 #### [facility] ([id number]) [address] [place] [address] 91925 ABSOLUTE NEUTROPHIL 6.8 X10E9/L High 1.5-6.6 [facility] Comment on above: Performed By: #### C VIRGILIO [facility], 77275-7 #### [facility] ([id number]) [address] [place] [address] 52332 Basophils/100 WBC (Bld) 0.7 % Normal [facility] Comment on above: Performed By: #### C VIRGILIO [facility], #### [facility] ([id number]) [address] [place] [address] 68595 Eosinophils (Bld) [#/Vol] 0.3 10*3/uL Normal 0.0-0.4 [facility] Comment on above: Performed By: #### Shahla POOLE [facility], #### [facility] ([id number]) [address] [place] [address] 49573 Eosinophils/100 WBC (Bld) 3.3 % Normal [facility] Comment on above: Performed By: #### Shahla POOLE [facility] [address], #### [facility] ([id number]) [address] [place] [address] 46349 Erythrocyte distribution width (RBC) [Ratio] 14.6 % Normal 11.5-15.0 [facility] Comment on above: Performed By: #### Shahla POOLE [facility], #### [facility] ([id number]) [address] [place] [address] 73110 Hematocrit (Bld) [Volume fraction] 30.1 % Low 35-47 [facility] Comment on above: Performed By: #### Shahla POOLE [facility], #### [facility] ([id number]) [address] [place] [address] 53041 Hemoglobin (Bld) [Mass/Vol] 10.0 g/dL Low 11.7-15.5 [facility] Comment on above: Performed By: #### Shahla POOLE CMP, #### [facility] ([id number]) [address] [place] [address] 94250 Lymphocytes (Bld) [#/Vol] 2.4 10*3/uL Normal 1.0-3.5 [facility] Comment on above: Performed By: #### Shahla POOLE CMP, #### [facility] ([id number]) [address] [place] [address] 78356 Lymphocytes/100 WBC (Bld) 23.7 % Normal [facility] Comment on above: Performed By: #### Shahla POOLE [facility] [facility], #### [facility] ([id number]) [address] [place] [address] 05956 MCH (RBC) [Entitic mass] 27.7 pg Normal 27-34 [facility] Comment on above: Performed By: #### Shahla POOLE [facility], #### [facility] ([id number]) [address] [place] [address] 13174 MCHC (RBC) [Mass/Vol] 33.1 g/dL Normal 32-36 [facility] Comment on above: Performed By: #### Shahla POOLE [facility], #### [facility] ([id number]) [address] [place] [address] 16984 MCV (RBC) [Entitic vol] 84 fL Normal 80-100 [facility] Comment on above: Performed By: #### Shahla POOLE [facility], #### [facility] ([id number]) [address] [place] [address] 39121 Monocytes (Bld) [#/Vol] 0.6 10*3/uL Normal 0-0.9 [facility] Comment on above: Performed By: #### Shahla POOLE CMP, #### [facility] ([id number]) [address] [place] [address], [place] [address] Monocytes/100 WBC (Bld) 5.5 % Normal [facility] Comment on above: Performed By: #### Shahla POOLE CMP, 38455-6 #### [facility] ([id number]) [address] [place] [address] 78159 Neutrophils/100 WBC (Bld) 66.8 % Normal [facility] Comment on above: Performed By: #### Shahla POOLE CMP, 22007-9 #### [facility] ([id number]) [address] [place] [address] 17244 Platelet mean volume (Bld) [Entitic vol] 9.0 fL Normal 7-12 [facility] Comment on above: Performed By: #### Shahla POOLE CMP, 96121-7 #### [facility] ([id number]) [address] [place] [address] 39168 Platelets (Bld) [#/Vol] 312 10*3/uL Normal 150-450 [facility] Comment on above: Performed By: #### Shahla POOLE CMP, 63046-4 #### [facility] ([id number]) [address] [place] [address] 25549 RBC COUNT 3.59 X10E12/L Low 3.80-5.20 [facility] Comment on above: Performed By: #### Shahla POOLE CMP, #### [facility] ([id number]) [address] [place] [address] 65325 WBC (Bld) [#/Vol] 10.2 10*3/uL Normal 4.0-11.0 [facility] Comment on above: Performed By: #### Shahla POOLE CMP, 77988-3 #### [facility] ([id number]) [address] [place] [address] 91547 CK [Catalytic activity/Vol]o n 06-23-2024 CPK 82 U/L Normal 24-170 [facility] Comment on above: Performed By: #### C BCA, BMP, 50113-1, 40790-7, 36093-7 #### [facility] ([id number]) [address] [place] [address] 61065 COMPLEMENT PROFILEon 024 COMPLEMENT C3 113 mg/dL Normal 86-184 [facility] Comment on above: Performed By: #### C BCA, BMP, 35031-7, 81719-4, 07504-7 #### [facility] ([id number]) [address] [place] [address] 81964 COMPLEMENT C4 36 mg/dL Normal 16-47 [facility] Comment on above: Performed By: #### C BCA, BMP, 37579-2, 43369-0, 90742-4 #### [facility] ([id number]) [address] [place] [address] 58266 COMPREHENSIVE METABOLIC PANE [facility] 10-15-2023 Albumin [Mass/Vol] 2.8 g/dL Low 3.2-5.3 [facility] Comment on above: Performed By: #### C BCA, CMP, #### [facility] ([id number]) [address] [place] [address] 31098 ALP [Catalytic activity/Vol] 61 U/L Normal 39-130 [facility] Comment on above: Performed By: #### C BCA, CMP, #### [facility] ([id number]) [address] [place] [address] 80658 ALT [Catalytic activity/Vol] 10 U/L Normal 0-31 [facility] Comment on above: Performed By: #### C BCA, CMP, #### [facility] ([id number]) [address] [place] [address] 21287 Anion gap [Moles/Vol] 10 mmol/L Normal 5-15 [facility] Comment on above: Performed By: #### C BCA, CMP, 80503-0 #### [facility] ([id number]) [address] [place] [address] 97144 AST [Catalytic activity/Vol] 14 U/L Normal 0-41 [facility] Comment on above: Performed By: #### C BCA, CMP, 31617-6 #### [facility] ([id number]) [address] [place] [address] 45218 Bilirubin [Mass/Vol] 0.4 mg/dL Normal 0.3-1.2 [facility] Comment on above: Performed By: #### C BCA, CMP, 61584-9 #### [facility] ([id number]) [address] [place] [address] 90119 Calcium [Mass/Vol] 8.4 mg/dL Low 8.5-10.5 [facility] Comment on above: Performed By: #### C BCA, CMP, 59730-1 #### [facility] ([id number]) [address] [place] [address] 37853 Chloride [Moles/Vol] 104 mmol/L Normal 98-109 [facility] Comment on above: Performed By: #### C BCA, CMP, 67596-2 #### [facility] ([id number]) [address] [place] [address] 16714 CO2 [Moles/Vol] 26 mmol/L Normal 22-32 [facility] Comment on above: Performed By: #### C BCA, CMP, 86388-3 #### [facility] ([id number]) [address] [place] [address] 31930 Creatinine [Mass/Vol] 2.56 mg/dL High 0.40-1.00 [facility] Comment on above: Result Comment: METH OD TRACEABLE TO IDMS STANDARD Performed By: #### C BCA, CMP, 35866-9 #### [facility] ([id number]) [address] [place] [address] 12282 GFR/1.73 sq M.predicted among non-blacks MDRD (S/P/Bld) [Vol rate/Area] 21 mL/min/{1.73_m2} Low >59 [facility] Comment on above: Result Comment: Reported eGFR is based on the CKD-EPI 2020 equation that does not use a race coefficient. Performed By: #### C VIRGILIO [facility], #### [facility] ([id number]) [address] [place] [address] 13705 Glucose [Mass/Vol] 103 mg/dL High 65-99 [facility] Comment on above: Performed By: #### Shahla POOLE [facility] [address], 32952-7 #### [facility] ([id number]) [address] [place] [address] 13715 Potassium [Moles/Vol] 3.2 mmol/L Low 3.5-5.0 [facility] Comment on above: Performed By: #### C VIRGILIO [facility], 82631-5 #### [facility] ([id number]) [address] [place] [address] 91037 Protein [Mass/Vol] 5.6 g/dL Low 6.0-8.0 [facility] Comment on above: Performed By: #### Shahla POOLE [facility], 68833-6 #### [facility] ([id number]) [address] [place] [address] 27468 Sodium [Moles/Vol] 140 mmol/L Normal 134-146 [facility] Comment on above: Performed By: #### Shahla POOLE [facility], 88020-3 #### [facility] ([id number]) [address] [place] [address] 15494 Urea nitrogen [Mass/Vol] 20 mg/dL Normal 5-23 [facility] Comment on above: Performed By: #### C BCA, CMP, #### [facility] ([id number]) [address] [place] [address] 75073 CRYOGLOBULIN WITH IDon 10-14 CRYOGLOBULIN, QUAL NEG 72HOUR Normal NEG 72Hour [facility] Comment on above: Result Comment: NOTE This test was developed and its performance characteristics determined by [facility]. It has not been cleared or approved by the [place] Food and Drug Administration. This test was performed in a CLIA certified laboratory and is intended for clinical purposes. Performed By: [facility] [address] [place] [address] 10770 Reading Recovery Teacher: Hank Armstrong MD, PhD CLIA Number: [id number] Performed By: #### 8 9579-7 #### [facility] ([id number]) [address] [place] [address] 39452 Creatinine (U) [Mass/Vol]on 10-15-2023 URINE CREATININE,RDM 102.61 mg/dL Normal [facility] Comment on above: Performed By: #### C BCA, BMP, , 74017-8, 06413-3 #### [facility] ([id number]) [address] [place] [address] 38351 FERRITINon 10-15-2023 Ferritin [Mass/Vol] 45 ng/mL Normal 11-307 [facility] Comment on above: Performed By: #### C BCA, BMP, 06680-5, 26656-7, 99366-3 #### [facility] ([id number]) [address] [place] [address] 41263 FREE LIGHT CHAINSon 10-15-19 24 FREE ANDREA/LAMBD RATIO 0.94 Normal 0.26-1.65 [facility] Comment on above: Performed By: #### C BCA, BMP, 69824-2, 49268-1, 60767-7 #### [facility] ([id number]) [address] [place] [address] 13269 FREE KAPPA LT CHAINS 3.52 mg/dL High 0.33-1.94 [facility] Comment on above: Performed By: #### C VIRGILIO, BMP, 01683-9, 93096-1, 62090-2 #### [facility] ([id number]) [address] [place] [address] 61754 FREE LAMBDA LT CHAINS 3.75 mg/dL High 0.57-2.63 [facility] Comment on above: Performed By: #### C VIRGILIO, BMP, 78995-5, 56829-7, 60298-8 #### [facility] ([id number]) [address] [place] [address] 18227 Folate [Mass/Vol]on 10-15-19 24 FOLIC ACID 10.3 ng/mL Normal >5.8 [facility] Comment on above: Result Comment: NEW REFERENCE RANGE Performed By: #### C VIRGILIO, BMP, , 40170-1, 93656-9 #### [facility] ([id number]) [address] [place] [address] 04673 HBV surface Ab IA Qnon 10-14 Anti HBs quant. <8.00 Normal [facility] Comment on above: Result Comment: Vacc inated: >=12mIU/mL, Positive (Immune) Unvaccinated: <8mIU/mL, Negative (Not Immune) 8-11.99 mIU/mL: Indeterminate, (Considered Not Immune) Performed By: #### C VIRGILIO, BMP, 72207-0, 23204-8, 16664-4 #### [facility] ([id number]) [address] [place] [address] 48214 HBV surface Ag IA Qlon 10-14 HEPATITIS B SURF AG Negative Normal NEG [facility] Comment on above: Performed By: #### Shahla POOLE, BMP, 76985-1, 70317-0, 46996-0 #### [facility] ([id number]) [address] [place] [address] 12175 HCV Ab IA Qlon 10-15-2023 ANTI HCV W/PCR REFLX Non-Reactive Normal NRCT [facility] Comment on above: Result Comment: If recent infection suspected, recommend repeat testing (>2 months). Fwwwus-ra-vhxixa ratio is <0.80. Performed By: #### C MARIO POOLE, 24638-8, 62609-7, 60925-2 #### [facility] ([id number]) [address] [place] [address] 38536 HIV 1+2 Ab+HIV1 p24 Ag IA Ql on 10-15-2023 HIV 1 and 2 Ab/Ag Screen Non-Reactive Normal NRCT [facility] Comment on above: Result Comment: [...] diagnoses. Performed By: #### C MARIO POOLE, 58621-2, 81486-1, 61133-7 #### [facility] ([id number]) [address] [place] [address] 44350 IRON PROFILEon 10-15-2023 Iron [Mass/Vol] 30 ug/dL Low 50-170 [facility] Comment on above: Performed By: #### C MARIO POOLE, 67669-1, 40841-3, 45550-7 #### [facility] ([id number]) [address] [place] [address] 80870 IRON BINDING 218 ug/dL Low 250-425 [facility] Comment on above: Performed By: #### C VIRGILIO, BMP, , 46203-3, 19925-5 #### [facility] ([id number]) [address] [place] [address] 39075 IRON SATURATION 14 % SATURATION Low 15-50 [facility] Comment on above: Performed By: #### C BCA, BMP, , 35470-4, 47047-4 #### [facility] ([id number]) [address] [place] [address] 12395 MAGNESIUMon 10-15-2023 Magnesium [Mass/Vol] 1.7 mg/dL Low 1.8-2.6 [facility] Comment on above: Performed By: #### C VIRGILIO, CMP, #### [facility] ([id number]) [address] [place] [address] 04912 Myeloperoxidase IgG Qn (S)on 10-15-2023 Myeloperoxidase IgG >8.0 High <0.4 (Negative) [facility] Comment on above: Result Comment: NOTE Interpretation: Positive (>=1.0) Test Performed by: [place] [address] [employer]er Feeder: Ledy Son Ph.D.; CLIA# [id number] Performed By: #### C VIRGILIO, BMP, , 88571-0, 02691-2 #### [facility] ([id number]) [address] [place] [address] 04505 Nuclear Ab IA Ql (S)on 10-14 SAUL Screen w/reflex Negative Normal NEG [facility] Comment on above: Result Comment: Testing performed using multiplex flow immunoassay. Eleven different antigens associated with systemic autoimmune diseases (dsDNA,Sm,Sm/GED INSTRUCTOR,GED INSTRUCTOR,Chromatin, SSA,SSB,Yoly-1,Scl70,Ribo P,Centromere B) are included in this screening test. Performed By: #### C BCA, BMP, , 22833-9, 72927-9 #### [facility] ([id number]) [address] [place] [address] 57217 POTASSIUMon 10-15-2023 Potassium [Moles/Vol] 3.5 mmol/L Normal 3.5-5.0 [facility] Comment on above: Performed By: #### C VIRGILIO, BMP, , 84461-3, 25397-3 #### [facility] ([id number]) [address] [place] [address] 18463 Proteinase 3 IgG IA Qnon Proteinase 3 IgG 0.2 U Normal <0.4 (Negative) [facility] Comment on above: Result Comment: NOTE Test Performed by: [facility] [address] [place] [address] Calciner Feeder: Ledy Son Ph.D.; CLIA# [id number] Performed By: #### C VIRGILIO, BMP, , 83165-1, 01846-8 #### [facility] ([id number]) [address] [place] [address] 32081 Rheumatoid factor Nephelomet ry Qn (S)on 10-15-2023 RHEUMATOID FACTOR 76 IU/mL High <20 [facility] Comment on above: Performed By: #### C VIRGILIO, BMP, , 68183-2, 11007-3 #### [facility] ([id number]) [address] [place] [address] 20438 SERUM PROTEIN ELECTROPHORESI Son 10-15-2023 Albumin [Mass/Vol] 2.5 g/dL Low 3.4-5.3 [facility] Comment on above: Performed By: #### C VIRGILIO, BMP, , 11638-4, 17925-3 #### [facility] ([id number]) [address] [place] [address] 41336 ALPHA 1 GLOBULIN 0.4 g/dL Normal 0.1-0.4 [facility] Comment on above: Performed By: #### C BCA, BMP, 83365-5, 99758-4, 19948-4 #### [facility] ([id number]) [address] [place] [address] 35038 ALPHA 2 GLOBULIN 0.9 g/dL Normal 0.4-1.1 [facility] Comment on above: Performed By: #### C BCA, BMP, 57244-2, 25394-6, 72179-2 #### [facility] ([id number]) [address] [place] [address] 42337 BETA GLOBULIN 0.5 g/dL Normal 0.5-1.2 [facility] Comment on above: Performed By: #### C BCA, BMP, 98454-5, 17209-5, 64474-3 #### [facility] ([id number]) [address] [place] [address] 18117 GAMMA GLOBULIN 0.4 g/dL Low 0.5-1.6 [facility] Comment on above: Performed By: #### C BCA, BMP, 69472-1, 24649-1, 08477-1 #### [facility] ([id number]) [address] [place] [address] 20502 PROT. ELECTROPHORESIS INTERP Unremarkable protein distribution, no monoclonal bands. Normal [facility] Comment on above: Performed By: #### C BCA, BMP, 11747-3, 70624-0, 03157-2 #### [facility] ([id number]) [address] [place] [address] 84226 Protein [Mass/Vol] 4.7 g/dL Low 6.0-8.0 [facility] Comment on above: Performed By: #### C BCA, BMP, 92076-9, 49227-8, 37081-5 #### [facility] ([id number]) [address] [place] [address], [place] [address] URINALYSISon 10-15-2023 Bilirubin Ql (U) Negative Normal NEG [facility] Comment on above: Performed By: #### C VIRGILIO, BMP, 64339-0, 24871-0, 96769-4 #### [facility] ([id number]) [address] [place] [address] 31050 BLOOD/HGB Large Abnormal NEG [facility] Comment on above: Performed By: #### C VIRGILIO, BMP, 44124-4, 26632-5, 18143-0 #### [facility] ([id number]) [address] [place] [address] 02908 Color (U) YELLOW Normal YELLOW [facility] Comment on above: Performed By: #### C VIRGILIO, BMP, 58559-5, 12960-2, 55588-8 #### [facility] ([id number]) [address] [place] [address] 27089 Glucose Ql (U) Negative Normal NEG [facility] Comment on above: Performed By: #### C VIRGILIO, BMP, 32158-4, 18205-2, 54536-7 #### [facility] ([id number]) [address] [place] [address] 03382 Ketones Ql (U) Negative Normal NEG [facility] Comment on above: Performed By: #### C VIRGILIO, BMP, 59907-9, 22281-3, 87796-1 #### [facility] ([id number]) [address] [place] [address] 36430 Leukocyte esterase Test strip Ql (U) Negative Normal NEG [facility] Comment on above: Performed By: #### C VIRGILIO, BMP, 12567-5, 64422-1, 97301-8 #### [facility] ([id number]) [address] [place] [address] 98078 Nitrite Ql (U) Negative Normal NEG [facility] Comment on above: Performed By: #### C VIRGILIO, BMP, 65937-3, 33968-4, 15043-3 #### [facility] ([id number]) [address] [place] [address] 78827 pH (U) 6.0 [pH] Normal 5.0-8.5 [facility] Comment on above: Performed By: #### C BCA, BMP, 98901-5, 45843-6, 03845-0 #### [facility] ([id number]) [address] [place] [address] 95341 Protein Ql (U) >300 Abnormal NEG [facility] Comment on above: Performed By: #### C VIRGILIO, BMP, 97822-2, 85562-1, 24346-7 #### [facility] ([id number]) [address] [place] [address] 66243 R.B.CELLS 30 /hpf High 0-5 [facility] Comment on above: Performed By: #### C VIRGILIO, BMP, , 64261-2, 80361-9 #### [facility] ([id number]) [address] [place] [address] 25805 Specific gravity (U) [Rel density] 1.025 Normal 1.003-1.035 [facility] Comment on above: Performed By: #### C VIRGILIO, BMP, 67207-6, 68817-4, 68084-9 #### [facility] ([id number]) [address] [place] [address] 80537 SQUAMOUS EPITHELIUM 6 /hpf High 0-5 [facility] Comment on above: Performed By: #### C BCA, BMP, 21991-5, 43994-1, 74341-0 #### [facility] ([id number]) [address] [place] [address] 13699 TURBIDITY CLEAR Normal CLEAR [facility] Comment on above: Performed By: #### C BCA, BMP, , 59146-0, 87366-3 #### [facility] ([id number]) [address] [place] [address] 84113 Urobilinogen Qn (U) 0.2 {Micaela'U}/dL Normal <1.1 [facility] Comment on above: Performed By: #### C BCA, BMP, , 26358-3, 18578-7 #### [facility] ([id number]) [address] [place] [address] 46782 W.B.CELLS 10 /hpf High 0-5 [facility] Comment on above: Performed By: #### C VIRGILIO, BMP, , 80799-8, 74915-1 #### [facility] ([id number]) [address] [place] [address] 47501 URINE SODIUM,RANDOMon 2023 Sodium (U) [Moles/Vol] 86 mmol/L Normal [facility] Comment on above: Performed By: #### C VIRGILIO, BMP, , 65449-0, 64698-1 #### [facility] ([id number]) [address] [place] [address] 51068 VITAMIN B12on 10-15-2023 Cobalamin (Vitamin B12) [Mass/Vol] 159 pg/mL Low 180-914 [facility] Comment on above: Performed By: #### C BCA, BMP, , 37157-0, 86443-6 #### [facility] ([id number]) [address] [place] [address] 78552 BASIC METABOLIC PANLon 10-13 Anion gap [Moles/Vol] 5 mmol/L Normal 5-15 [facility] Comment on above: Performed By: #### C BCA, BMP, , 24131-4, 61234-6 #### [facility] ([id number]) [address] [place] [address] 04937 Calcium [Mass/Vol] 8.1 mg/dL Low 8.5-10.5 [facility] Comment on above: Performed By: #### C BCA, BMP, 85968-7, 85523-9, 71477-3 #### [facility] ([id number]) [address] [place] [address] 97347 Chloride [Moles/Vol] 107 mmol/L Normal 98-109 [facility] Comment on above: Performed By: #### C BCA, BMP, 17336-2, 05057-5, 18097-2 #### [facility] ([id number]) [address] [place] [address] 24463 CO2 [Moles/Vol] 27 mmol/L Normal 22-32 [facility] Comment on above: Performed By: #### C BCA, BMP, 37176-0, 98803-9, 81438-5 #### [facility] ([id number]) [address] [place] [address] 74143 Creatinine [Mass/Vol] 2.56 mg/dL High 0.40-1.00 [facility] Comment on above: Result Comment: METH OD TRACEABLE TO IDMS STANDARD Performed By: #### C BCA, BMP, 15852-9, 77743-3, 05304-7 #### [facility] ([id number]) [address] [place] [address] 04344 GFR/1.73 sq M.predicted among non-blacks MDRD (S/P/Bld) [Vol rate/Area] 21 mL/min/{1.73_m2} Low >59 [facility] Comment on above: Result Comment: Reported eGFR is based on the CKD-EPI 2020 equation that does not use a race coefficient. Performed By: #### C BCA, BMP, 60030-0, 91813-5, 98958-9 #### [facility] ([id number]) [address] [place] [address] 74997 Glucose [Mass/Vol] 95 mg/dL Normal 65-99 [facility] Comment on above: Performed By: #### C BCA, BMP, 24098-9, 04162-1, 78621-3 #### [facility] ([id number]) [address] [place] [address] 19752 Potassium [Moles/Vol] 3.1 mmol/L Low 3.5-5.0 [facility] Comment on above: Performed By: #### C BCA, BMP, 42341-7, 17941-8, 78810-3 #### [facility] ([id number]) [address] [place] [address] 89069 Sodium [Moles/Vol] 139 mmol/L Normal 134-146 [facility] Comment on above: Performed By: #### C VIRGILIO, BMP, , 79324-7, 15394-0 #### [facility] ([id number]) [address] [place] [address] 13979 Urea nitrogen [Mass/Vol] 19 mg/dL Normal 5-23 [facility] Comment on above: Performed By: #### C BCA, BMP, , 21782-8, 71789-3 #### [facility] ([id number]) [address] [place] [address] 80160 CBC AND AUTO DIFFon 10-14-19 24 ABSOLUTE BASOPHIL 0.1 X10E9/L Normal 0.0-0.2 [facility] Comment on above: Performed By: #### C BCA, BMP, 45314-3, 18449-1, 25855-2 #### [facility] ([id number]) [address] [place] [address] 08645 ABSOLUTE NEUTROPHIL 5.7 X10E9/L Normal 1.5-6.6 [facility] Comment on above: Performed By: #### C VIRGILIO, BMP, , 82436-2, 35940-9 #### [facility] ([id number]) [address] [place] [address] 83958 Basophils/100 WBC (Bld) 0.7 % Normal [facility] Comment on above: Performed By: #### C BCA, BMP, 31594-8, 27079-9, 29081-1 #### [facility] ([id number]) [address] [place] [address] 36298 Eosinophils (Bld) [#/Vol] 0.5 10*3/uL High 0.0-0.4 [facility] Comment on above: Performed By: #### C VIRGILIO, BMP, , 77576-1, 16788-0 #### [facility] ([id number]) [address] [place] [address] 11562 Eosinophils/100 WBC (Bld) 4.9 % Normal [facility] Comment on above: Performed By: #### C BCA, BMP, , 41993-4, 66590-1 #### [facility] ([id number]) [address] [place] [address] 41001 Erythrocyte distribution width (RBC) [Ratio] 14.6 % Normal 11.5-15.0 [facility] Comment on above: Performed By: #### C BCA, BMP, 72850-6, 24807-3, 08208-3 #### [facility] ([id number]) [address] [place] [address] 06278 Hematocrit (Bld) [Volume fraction] 33.2 % Low 35-47 [facility] Comment on above: Performed By: #### C BCA, BMP, 50306-1, 98060-5, 27466-2 #### [facility] ([id number]) [address] [place] [address] 19994 Hemoglobin (Bld) [Mass/Vol] 10.9 g/dL Low 11.7-15.5 [facility] Comment on above: Performed By: #### C VIRGILIO, MARIO, , 47118-8, 28195-6 #### [facility] ([id number]) [address] [place] [address] 62138 Lymphocytes (Bld) [#/Vol] 2.8 10*3/uL Normal 1.0-3.5 [facility] Comment on above: Performed By: #### C VIRGILIO, BMP, , 43728-5, 90956-6 #### [facility] ([id number]) [address] [place] [address] 11745 Lymphocytes/100 WBC (Bld) 28.7 % Normal [facility] Comment on above: Performed By: #### C VIRGILIO, MARIO, , 21610-9, 84898-3 #### [facility] ([id number]) [address] [place] [address] 91435 MCH (RBC) [Entitic mass] 27.7 pg Normal 27-34 [facility] Comment on above: Performed By: #### Shahla POOLE, BMP, , 00095-7, 43556-8 #### [facility] ([id number]) [address] [place] [address] 80207 MCHC (RBC) [Mass/Vol] 32.9 g/dL Normal 32-36 [facility] Comment on above: Performed By: #### Shahla POOLE, BMP, , 32833-2, 31068-3 #### [facility] ([id number]) [address] [place] [address] 47172 MCV (RBC) [Entitic vol] 84 fL Normal 80-100 [facility] Comment on above: Performed By: #### C BCA, BMP, 06236-5, 37129-2, 17711-0 #### [facility] ([id number]) [address] [place] [address] 51669 Monocytes (Bld) [#/Vol] 0.8 10*3/uL Normal 0-0.9 [facility] Comment on above: Performed By: #### C BCA, BMP, 12317-3, 96851-2, 28276-0 #### [facility] ([id number]) [address] [place] [address] 07653 Monocytes/100 WBC (Bld) 8.1 % Normal [facility] Comment on above: Performed By: #### Shahla BCA, BMP, 46638-7, 77233-3, 00737-0 #### [facility] ([id number]) [address] [place] [address] 12842 Neutrophils/100 WBC (Bld) 57.6 % Normal [facility] Comment on above: Performed By: #### Shahla BCA, BMP, 42517-4, 79460-3, 31663-1 #### [facility] ([id number]) [address] [place] [address] 96670 Platelet mean volume (Bld) [Entitic vol] 8.9 fL Normal 7-12 [facility] Comment on above: Performed By: #### Shahla BCA, BMP, 19734-8, 96412-9, 70066-8 #### [facility] ([id number]) [address] [place] [address] 05172 Platelets (Bld) [#/Vol] 319 10*3/uL Normal 150-450 [facility] Comment on above: Performed By: #### Shahla BCA, BMP, 02265-4, 52844-1, 44863-6 #### [facility] ([id number]) [address] [place] [address] 47764 RBC COUNT 3.95 X10E12/L Normal 3.80-5.20 [facility] Comment on above: Performed By: #### C VIRGILIO, BMP, 09937-5, 43571-0, 32343-3 #### [facility] ([id number]) [address] [place] [address] 65294 WBC (Bld) [#/Vol] 9.9 10*3/uL Normal 4.0-11.0 [facility] Comment on above: Performed By: #### C VIRGILIO, BMP, 30901-7, 72548-2, 72096-5 #### [facility] ([id number]) [address] [place] [address] 83106 MAGNESIUMon 10-14-2023 Magnesium [Mass/Vol] 1.8 mg/dL Normal 1.8-2.6 [facility] Comment on above: Performed By: #### C VIRGILIO, BMP, 58877-6, 04762-7, 83115-5 #### [facility] ([id number]) [address] [place] [address] 87351 Natriuretic peptide B [Mass/ Vol]on 10-14-2023 Natriuretic peptide B (Bld) [Mass/Vol] 427 pg/mL High <100.0 [facility] Comment on above: Performed By: #### C BCA, BMP, 75658-7, 68235-1, 75220-4 #### [facility] ([id number]) [address] [place] [address] 52498 Troponin I.cardiac High sens itivity method [Mass/Vol]on 10-14-2023 1 HOUR TROP I, HIGH SENSITIVITY 39 ng/L High <16 [facility] Comment on above: Result Comment: Elevations of hs-Troponin may be due to causes other than myocardial ischemia. Recommend serial hs-Troponin testing be performed. For the initial evaluation and management of chest pain patients, refer to the algorithms linked below. Emergency Patient: [email or web address] Inpatient: [email or web address] Performed By: #### 8 9579-7 #### [facility] ([id number]) [address] [place] [address] 34342 TROPONIN I, HIGH SENSITIVITY 39 ng/L High <16 [facility] Comment on above: Result Comment: Elevations of hs-Troponin may be due to causes other than myocardial ischemia. Recommend serial hs-Troponin testing be performed. For the initial evaluation and management of chest pain patients, refer to the algorithms linked below. Emergency Patient: [email or web address] Inpatient: [email or web address] Performed By: #### C VIRGILIO, [facility], 75558-2, 27298-9, 99644-8 #### [facility] ([id number]) [address] [place] [address] 10345 XR CHEST 1 VWon 10-14-2023 XR CHEST 1 VW XR CHEST 1 VW Single view chest History: Difficulty breathing, shortness of breath Comparison: 01/01/2021 Impression: 1. Low lung volumes and hypoventilatory change, Central pulmonary vascular congestion without overt pulmonary edema. No sizable pleural effusion, no definite pneumothorax. 2. Borderline cardiomegaly. Finalized by Naren Morris MD on 10/14/2023 11:39 PM Normal [facility] ANTIBODY ID PANELon 01-03-20 22 ANTIBODY ID PANEL Antibody ID Anti-Jka Normal [facility] Comment on above: Performed By: #### C MP, HSTROPN #### [facility] [address] [place] [address] Dr. Steve Valentin CBC AUTO DIFFon 12-31-2021 BASO # 0.0 103/ul Normal 0.0-0.1 [facility] Comment on above: Performed By: #### C MP, HSTROPN #### [facility] [address] [place] [address] Dr. Steve Valentin Basophils/100 WBC (Bld) 0.9 % Normal 0.2-2.0 [facility] Comment on above: Performed By: #### C MP, HSTROPN #### [facility] [address] [place] [address] Dr. Steve Valentin EO # 0.2 103/ul Normal 0.0-0.7 [facility] Comment on above: Performed By: #### C MP, HSTROPN #### [facility] [address] [place] [address] Dr. Steve Valentin Eosinophils/100 WBC (Bld) 4.3 % Normal 0.9-7.0 [facility] Comment on above: Performed By: #### C MP, HSTROPN #### [facility] [address] [place] [address] Dr. Steve Valentin Erythrocyte distribution width (RBC) [Ratio] 14.1 % Normal 11.0-15.0 [facility] Comment on above: Performed By: #### C MP, HSTROPN #### [facility] [address] [place] [address] Dr. Steve Valentin Hematocrit (Bld) [Volume fraction] 34.6 % Critically low 36.0-48.0 [facility] Comment on above: Performed By: #### C MP, HSTROPN #### [facility] [address] [place] [address] Dr. Steve Valentin Hemoglobin (Bld) [Mass/Vol] 10.9 g/dL Critically low 12.0-16.0 [facility] Comment on above: Performed By: #### C MP, HSTROPN #### [facility] [address] [place] [address] Dr. Steve Valentin IG # 0.01 10e3/ul Normal 0.00-0.03 [facility] Comment on above: Performed By: #### C MP, HSTROPN #### [facility] [address] [place] [address] Dr. Steve Valentin IG % 0.3 % Normal 0.0-0.5 [facility] Comment on above: Performed By: #### C MP, HSTROPN #### [facility] [address] [place] [address] Dr. Steve Valentin LYMPH # 0.9 103/ul Critically low 1.2-3.8 [facility] Comment on above: Performed By: #### C MP, HSTROPN #### [facility] [address] [place] [address] Dr. Steve Valentin Lymphocytes/100 WBC (Bld) 26.3 % Normal 20.5-60.0 [facility] Comment on above: Performed By: #### C MP, HSTROPN #### [facility] [address] [place] [address] Dr. Steve Valentin MANUAL DIFF REQ NO Normal [facility] Comment on above: Performed By: #### C MP, HSTROPN #### [facility] [address] [place] [address] Dr. Steve Valentin MCH (RBC) [Entitic mass] 26.7 pg Normal 26.7-34.0 [facility] Comment on above: Performed By: #### C MP, HSTROPN #### [facility] [address] [place] [address] Dr. Steve Valentin MCHC (RBC) [Mass/Vol] 31.5 g/dL Normal 29.9-35.2 [facility] Comment on above: Performed By: #### C MP, HSTROPN #### [facility] [address] [place] [address] Dr. Steve Valentin MCV (RBC) [Entitic vol] 84.8 fL Normal 81.0-99.0 [facility] Comment on above: Performed By: #### C MP, HSTROPN #### [facility] [address] [place] [address] Dr. Steve Valentin MONO # 0.3 103/ul Normal 0.3-0.8 [facility] Comment on above: Performed By: #### C MP, HSTROPN #### [facility] [address] [place] [address] Dr. Steve Valentin Monocytes/100 WBC (Bld) 9.5 % Normal 1.7-12.0 [facility] Comment on above: Performed By: #### C MP, HSTROPN #### [facility] [address] [place] [address] Dr. Steve Valentin NEUT # 2.0 103/ul Normal 1.4-6.5 [facility] Comment on above: Performed By: #### C MP, HSTROPN #### [facility] [address] [place] [address] Dr. Steve Valentin Neutrophils/100 WBC (Bld) 58.7 % Normal 43.0-75.0 [facility] Comment on above: Performed By: #### C TABBY, HSTROPN #### [facility] [address] [place] [address] Dr. Steve Valentin Platelet mean volume (Bld) [Entitic vol] 10.5 fL Normal 9.5-13.5 [facility] Comment on above: Performed By: #### C MP, HSTROPN #### [facility] [address] [place] [address] Dr. Steve Valentin PLT 164 103/ul Normal 150-450 [facility] Comment on above: Performed By: #### C MP, HSTROPN #### [facility] [address] [place] [address] Dr. Steve Valentin RBC 4.08 106/ul Critically low 4.20-5.40 [facility] Comment on above: Performed By: #### C MP, HSTROPN #### [facility] [address] [place] [address] Dr. Steve Valentin WBC 3.5 103/ul Critically low 4.0-11.0 [facility] Comment on above: Performed By: #### C MP, HSTROPN #### [facility] [address] [place] [address] Dr. Steve Valentin PROF 14(COMP METB)on 022 Albumin [Mass/Vol] 3.0 g/dL Critically low 3.4-5.0 [facility] Comment on above: Performed By: #### C MP #### [facility] [address] [place] [address] Dr. Steve Valentin Albumin/Globulin [Mass ratio] 1.0 {ratio} Normal [facility] Comment on above: Performed By: #### C MP #### [facility] [address] [place] [address] Dr. Steve Valentin ALP [Catalytic activity/Vol] 56 U/L Normal 46-116 [facility] Comment on above: Performed By: #### C MP #### [facility] [address] [place] [address] Dr. Steve Valentin ALT [Catalytic activity/Vol] 20 U/L Normal 14-59 [facility] Comment on above: Performed By: #### C MP #### [facility] [address] [place] [address] Dr. Steve Valentin Anion gap [Moles/Vol] 9.3 mmol/L Normal [facility] Comment on above: Performed By: #### C MP #### [facility] [address] [place] [address] Dr. Steve Valentin AST [Catalytic activity/Vol] 17 U/L Normal 15-37 [facility] Comment on above: Performed By: #### C MP #### [facility] [address] [place] [address] Dr. Steve Valentin Bilirubin [Mass/Vol] 0.2 mg/dL Normal 0.2-1.0 [facility] Comment on above: Performed By: #### C MP #### [facility] [address] [place] [address] Dr. Steve Valentin Calcium [Mass/Vol] 8.8 mg/dL Normal 8.5-10.1 [facility] Comment on above: Performed By: #### C MP #### [facility] [address] [address] [address] Steve Valentin Chloride [Moles/Vol] 106 mmol/L Normal 98-107 [facility] Comment on above: Performed By: #### C MP #### [facility] [address] [address] [address] Steve Valentin CO2 [Moles/Vol] 26.5 mmol/L Normal 21.0-32.0 [facility] Comment on above: Performed By: #### C MP #### [facility] [address] [place] [address] Dr. Steve Valentin Creatinine [Mass/Vol] 0.92 mg/dL Normal 0.55-1.02 [facility] Comment on above: Performed By: #### C MP #### [facility] [address] [place] [address] Dr. Steve Valentin EGFR-AF SAMOAN >60 Normal >=60 [facility] Comment on above: Performed By: #### C MP #### [facility] [address] [place] [address] Dr. Steve Valentin EGFR-NON AF SAMOAN >60 Normal >=60 [facility] Comment on above: Performed By: #### C MP #### [facility] [address] [place] [address] Dr. Steve Valentin Globulin (S) [Mass/Vol] 2.9 g/dL Normal [facility] Comment on above: Performed By: #### C MP #### [facility] [address] [address] [address] Steve Valentin Glucose [Mass/Vol] 97 mg/dL Normal 74-106 [facility] Comment on above: Performed By: #### C MP #### [facility] [address] [place] [address] Dr. Steve Valentin Potassium [Moles/Vol] 3.8 mmol/L Normal 3.5-5.1 [facility] Comment on above: Performed By: #### C MP #### [facility] [address] [address] [address] Steve Valentin Protein [Mass/Vol] 5.9 g/dL Critically low 6.4-8.2 [facility] Comment on above: Performed By: #### C MP #### [facility] [address] [address] [address] Steve Valentin Sodium [Moles/Vol] 138 mmol/L Normal 136-145 [facility] Comment on above: Performed By: #### C MP #### [facility] [address] [address] [address] Steve Valentin Urea nitrogen [Mass/Vol] 5.0 mg/dL Critically low 7.0-18.0 [facility] Comment on above: Performed By: #### C MP #### [facility] [address] [place] [address] Dr. Steve Valentin Urea nitrogen/Creatinine [Mass ratio] 5.4 mg/mg Normal [facility] Comment on above: Performed By: #### C MP #### [facility] [address] [place] [address] Dr. Steve Valentin CBC AUTO DIFFon 12-30-2021 BASO # 0.0 103/ul Normal 0.0-0.1 [facility] Comment on above: Performed By: #### C BC #### [facility] [address] [place] [address] Dr. Steve Valentin Basophils/100 WBC (Bld) 0.5 % Normal 0.2-2.0 [facility] Comment on above: Performed By: #### C BC #### [facility] [address] [place] [address] Dr. Steve Valentin EO # 0.1 103/ul Normal 0.0-0.7 [facility] Comment on above: Performed By: #### C BC #### [facility] [address] [place] [address] Dr. Steve Valentin Eosinophils/100 WBC (Bld) 3.2 % Normal 0.9-7.0 [facility] Comment on above: Performed By: #### C BC #### [facility] [address] [place] [address] Dr. Steve Valentin Erythrocyte distribution width (RBC) [Ratio] 14.0 % Normal 11.0-15.0 [facility] Comment on above: Performed By: #### C BC #### [facility] [address] [place] [address] Dr. Steve Valentin Hematocrit (Bld) [Volume fraction] 38.3 % Normal 36.0-48.0 [facility] Comment on above: Performed By: #### C BC #### [facility] [address] [place] [address] Dr. Steve Valentin Hemoglobin (Bld) [Mass/Vol] 11.7 g/dL Critically low 12.0-16.0 [facility] Comment on above: Performed By: #### C BC #### [facility] [address] [place] [address] Dr. Steve Valentin IG # 0.01 10e3/ul Normal 0.00-0.03 [facility] Comment on above: Performed By: #### C BC #### [facility] [address] [place] [address] Dr. Steve Valentin IG % 0.2 % Normal 0.0-0.5 [facility] Comment on above: Performed By: #### C BC #### [facility] [address] [place] [address] Dr. Steve Valentin LYMPH # 1.3 103/ul Normal 1.2-3.8 [facility] Comment on above: Performed By: #### C BC #### [facility] [address] [place] [address] Dr. Steve Valentin Lymphocytes/100 WBC (Bld) 29.6 % Normal 20.5-60.0 [facility] Comment on above: Performed By: #### C BC #### [facility] [address] [place] [address] Dr. Steve Valentin MANUAL DIFF REQ NO Normal [facility] Comment on above: Performed By: #### C BC #### [facility] [address] [place] [address] Dr. Steve Valentin MCH (RBC) [Entitic mass] 26.0 pg Critically low 26.7-34.0 [facility] Comment on above: Performed By: #### C BC #### [facility] [address] [place] [address] Dr. Steve Valentin MCHC (RBC) [Mass/Vol] 30.5 g/dL Normal 29.9-35.2 [facility] Comment on above: Performed By: #### C BC #### [facility] [address] [place] [address] Dr. Steve Valentin MCV (RBC) [Entitic vol] 85.1 fL Normal 81.0-99.0 [facility] Comment on above: Performed By: #### C BC #### [facility] [address] [place] [address] Dr. Steve Valentin MONO # 0.5 103/ul Normal 0.3-0.8 [facility] Comment on above: Performed By: #### C BC #### [facility] [address] [place] [address] Dr. Steve Valentin Monocytes/100 WBC (Bld) 10.6 % Normal 1.7-12.0 [facility] Comment on above: Performed By: #### C BC #### [facility] [address] [place] [address] Dr. Steve Valentin NEUT # 2.4 103/ul Normal 1.4-6.5 [facility] Comment on above: Performed By: #### C BC #### [facility] [address] [place] [address] Dr. Steve Valentin Neutrophils/100 WBC (Bld) 55.9 % Normal 43.0-75.0 [facility] Comment on above: Performed By: #### C BC #### [facility] [address] [place] [address] Dr. Steve Valentin Platelet mean volume (Bld) [Entitic vol] 10.0 fL Normal 9.5-13.5 [facility] Comment on above: Performed By: #### C BC #### [facility] [address] [place] [address] Dr. Steve Valentin PLT 169 103/ul Normal 150-450 [facility] Comment on above: Performed By: #### C BC #### [facility] [address] [place] [address] Dr. Steve Valentin RBC 4.50 106/ul Normal 4.20-5.40 [facility] Comment on above: Performed By: #### C BC #### [facility] [address] [place] [address] Dr. Steve Valentin WBC 4.4 103/ul Normal 4.0-11.0 [facility] Comment on above: Performed By: #### C BC #### [facility] [address] [place] [address] Dr. Steve Valentin BASO # 0.0 103/ul Normal 0.0-0.1 [facility] Comment on above: Performed By: #### C BC #### [facility] [address] [place] [address] Dr. Steve Valentin Basophils/100 WBC (Bld) 0.4 % Normal 0.2-2.0 [facility] Comment on above: Performed By: #### C BC #### [facility] [address] [place] [address] Dr. Steve Valentin EO # 0.2 103/ul Normal 0.0-0.7 [facility] Comment on above: Performed By: #### C BC #### [facility] [address] [place] [address] Dr. Steve Valentin Eosinophils/100 WBC (Bld) 2.6 % Normal 0.9-7.0 [facility] Comment on above: Performed By: #### C BC #### [facility] [address] [place] [address] Dr. Steve Valentin Erythrocyte distribution width (RBC) [Ratio] 13.9 % Normal 11.0-15.0 [facility] Comment on above: Performed By: #### C BC #### [facility] [address] [place] [address] Dr. Steve Valentin Hematocrit (Bld) [Volume fraction] 39.1 % Normal 36.0-48.0 [facility] Comment on above: Performed By: #### C BC #### [facility] [address] [place] [address] Dr. Steve Valentin Hemoglobin (Bld) [Mass/Vol] 12.3 g/dL Normal 12.0-16.0 [facility] Comment on above: Performed By: #### C BC #### [facility] [address] [address] [address] Steve Valentin IG # 0.02 10e3/ul Normal 0.00-0.03 [facility] Comment on above: Performed By: #### C BC #### [facility] [address] [place] [address] Dr. Steve Valentin IG % 0.4 % Normal 0.0-0.5 [facility] Comment on above: Performed By: #### C BC #### [facility] [address] [place] [address] Dr. Steve Valentin LYMPH # 1.1 103/ul Critically low 1.2-3.8 [facility] Comment on above: Performed By: #### C BC #### [facility] [address] [place] [address] Dr. Steve Valentin Lymphocytes/100 WBC (Bld) 18.9 % Critically low 20.5-60.0 [facility] Comment on above: Performed By: #### C BC #### [facility] [address] [place] [address] Dr. Steve Valentin MANUAL DIFF REQ NO Normal [facility] Comment on above: Performed By: #### C BC #### [facility] [address] [place] [address] Dr. Steve Valentin MCH (RBC) [Entitic mass] 26.3 pg Critically low 26.7-34.0 [facility] Comment on above: Performed By: #### C BC #### [facility] [address] [place] [address] Dr. Steve Valentin MCHC (RBC) [Mass/Vol] 31.5 g/dL Normal 29.9-35.2 [facility] Comment on above: Performed By: #### C BC #### [facility] [address] [place] [address] Dr. Steve Valentin MCV (RBC) [Entitic vol] 83.7 fL Normal 81.0-99.0 [facility] Comment on above: Performed By: #### C BC #### [facility] [address] [address] [address] Steve Valentin MONO # 0.6 103/ul Normal 0.3-0.8 [facility] Comment on above: Performed By: #### C BC #### [facility] [address] [place] [address] Dr. Steve Valentin Monocytes/100 WBC (Bld) 10.0 % Normal 1.7-12.0 [facility] Comment on above: Performed By: #### C BC #### [facility] [address] [place] [address] Dr. Steve Valentin NEUT # 3.9 103/ul Normal 1.4-6.5 [facility] Comment on above: Performed By: #### C BC #### [facility] [address] [place] [address] Dr. Steve Valentin Neutrophils/100 WBC (Bld) 67.7 % Normal 43.0-75.0 [facility] Comment on above: Performed By: #### C BC #### [facility] [address] [place] [address] Dr. Steve Valentin Platelet mean volume (Bld) [Entitic vol] 10.0 fL Normal 9.5-13.5 [facility] Comment on above: Performed By: #### C BC #### [facility] [address] [place] [address] Dr. Steve Valentin PLT 200 103/ul Normal 150-450 [facility] Comment on above: Performed By: #### C BC #### [facility] [address] [place] [address] Dr. Steve Valentin RBC 4.67 106/ul Normal 4.20-5.40 [facility] Comment on above: Performed By: #### C BC #### [facility] [address] [place], [place] [address] Dr. Steve Valentin WBC 5.7 103/ul Normal 4.0-11.0 [facility] Comment on above: Performed By: #### C BC #### [facility] [address] [place], [place] [address] ABD/PELV W CONon [...] LO COSTA Date: 2021-12-30 08:30 Normal [facility] Covid-19 PCR (CVDTB)on SARS-CoV-2 (COVID-19) RNA RADHA+probe Ql (Unsp spec) Not detected Normal NOT DETECTED [facility] Comment on above: Result Comment: When [...] for this test is supported by the Safety Fire Boss of Health and Human Service's declaration that [...] used). Performed By: #### C VDTBH #### [facility] [address] [place] [address] Dr. Steve Valentin DIRECT COOMBSon 12-30-2021 DIRECT AMARJIT Negative Normal [facility] Comment on above: Performed By: #### C TABBY, HSTROPN #### [facility] [address] [place] [address] Dr. Steve Valentin LACTATE/LACTIC ACIDon 2021 Lactate [Moles/Vol] 1.2 mmol/L Normal 0.4-1.9 [facility] Comment on above: Performed By: #### L ACT #### [facility] [address] [place] [address] Dr. Steve Valentin PROF 14(COMP METB)on 022 Albumin [Mass/Vol] 3.4 g/dL Normal 3.4-5.0 [facility] Comment on above: Performed By: #### C MP, HSTROPN #### [facility] [address] [place] [address] Dr. Steve Valentin Albumin/Globulin [Mass ratio] 1.1 {ratio} Normal [facility] Comment on above: Performed By: #### C TABBY, HSTROPN #### [facility] [address] [address] [address] Steve Valentin ALP [Catalytic activity/Vol] 66 U/L Normal 46-116 [facility] Comment on above: Performed By: #### C TABBY, HSTROPN #### [facility] [address] [place] [address] Dr. Steve Valentin ALT [Catalytic activity/Vol] 18 U/L Normal 14-59 [facility] Comment on above: Performed By: #### C TABBY, HSTROPN #### [facility] [address] [place] [address] Dr. Steve Valentin Anion gap [Moles/Vol] 9.1 mmol/L Normal [facility] Comment on above: Performed By: #### C TABBY, HSTROPN #### [facility] [address] [place] [address] Dr. Steve Valentin AST [Catalytic activity/Vol] 14 U/L Critically low 15-37 [facility] Comment on above: Performed By: #### C TABBY, HSTROPN #### [facility] [address] [place] [address] Dr. Steve Valentin Bilirubin [Mass/Vol] 0.3 mg/dL Normal 0.2-1.0 [facility] Comment on above: Performed By: #### C TABBY, HSTROPN #### [facility] [address] [place] [address] Dr. Steve Valentin Calcium [Mass/Vol] 9.2 mg/dL Normal 8.5-10.1 [facility] Comment on above: Performed By: #### C TABBY, HSTROPN #### [facility] [address] [place] [address] Dr. Steve Vlaentin Chloride [Moles/Vol] 104 mmol/L Normal 98-107 [facility] Comment on above: Performed By: #### C TABBY, HSTROPN #### [facility] [address] [place] [address] Dr. Steve Valentin CO2 [Moles/Vol] 25.5 mmol/L Normal 21.0-32.0 [facility] Comment on above: Performed By: #### C MP, HSTROPN #### [facility] [address] [address] [address] Steve Valentin Creatinine [Mass/Vol] 0.94 mg/dL Normal 0.55-1.02 [facility] Comment on above: Performed By: #### C MP, HSTROPN #### [facility] [address] [address] [address] Steve Valentin EGFR-AF SAMOAN >60 Normal >=60 [facility] Comment on above: Performed By: #### C MP, HSTROPN #### [facility] [address] [address] [address] Steve Valentin EGFR-NON AF SAMOAN >60 Normal >=60 [facility] Comment on above: Performed By: #### C MP, HSTROPN #### [facility] [address] [address] [address] Steve Valentin Globulin (S) [Mass/Vol] 3.1 g/dL Normal [facility] Comment on above: Performed By: #### C MP, HSTROPN #### [facility] [address] [address] [address] Steve Valentin Glucose [Mass/Vol] 98 mg/dL Normal 74-106 [facility] Comment on above: Performed By: #### C MP, HSTROPN #### [facility] [address] [address] [address] Steve Valentin Potassium [Moles/Vol] 3.6 mmol/L Normal 3.5-5.1 [facility] Comment on above: Performed By: #### C MP, HSTROPN #### [facility] [address] [address] [address] Steve Valentin Protein [Mass/Vol] 6.5 g/dL Normal 6.4-8.2 [facility] Comment on above: Performed By: #### C MP, HSTROPN #### [facility] [address] [address] [address] Steve Valentin Sodium [Moles/Vol] 135 mmol/L Critically low 136-145 [facility] Comment on above: Performed By: #### C TABBY, HSTROPN #### [facility] [address] [address] [address] Steve Valentin Urea nitrogen [Mass/Vol] 11.0 mg/dL Normal 7.0-18.0 [facility] Comment on above: Performed By: #### C MP, HSTROPN #### [facility] [address] [address] [address] Steve Valentin Urea nitrogen/Creatinine [Mass ratio] 11.7 mg/mg Normal [facility] Comment on above: Performed By: #### C TABBY, HSTROPN #### [facility] [address] [place] [address] Dr. Steve Valentin TROPONIN, HIGH SENSITIVITYon 12-30-2021 HSTROP 8.6 pg/mL Normal 4.0-51.3 [facility] Comment on above: Result Comment: CUT- OFF POINTS HAVE BEEN ESTABLISHED BASED ON THE FOURTH UNIVERSAL DEFINITIONS OF MYOCARDIAL INFARCTION. THE UPPER REFERENCE LIMIT (URL) OF TROPONIN, DEFINED THE 99TH PERCENTILE OF cTnI DISTRIBUTION IN A REFERENCE POPULATION, HAS BEEN CONFIRMED THE DECISION THRESHOLD FOR AR DIAGNOSIS. Performed By: #### C TABBY, HSTROPN #### [facility] [address] [place] [address] Dr. Steve Valentin TYPE AND SCREENon 12-30-2021 TYPE AND SCREEN Positive Normal [facility] Comment on above: Performed By: #### T NS #### [facility] [address] [place] [address] Dr. Steve Valentin XR CERVICAL SPINE (2-3 [...] Yaritza Pinedo MD 01/20/20 Final result Normal [facility] Multilevel degenerative changes [place], [place] EXAMINATION: XRAY VIEWS OF THE CERVICAL [...] dislocation or significant prevertebral soft tissue swelling [place], [place], [employer] Incoming Radiant Results From mobifriendscribe/Pacs - 01/20/2020 11:34 AM EDT EXAMINATION: XRAY [...] soft tissue swelling IMPRESSION: Multilevel degenerative changes [place], [place] XR LUMBAR SPINE (2-3 VIEWS)o n [...] Mitesh Ho MD 01/20/20 Final result Normal [facility] No acute abnormality lumbosacral spine. Degenerative findings most severe at L5-S1, with evidence DDD. [place], [place] EXAMINATION: THREE XRAY VIEWS OF THE [...] Large amount of retained stool right colon. [place], [place], [employer] Incoming Radiant Results From PEVESA/BookTour - 01/20/2020 12:11 PM EDT EXAMINATION: THREE [...] most severe at L5-S1, with evidence DDD. [facility] [place] Hematologyon 01-25-2018 Basophils Auto #/vol (Bld) 0.7 % Invalid Interpretation Code [facility] Basophils/100 WBC Auto (Bld) 0.0 K/uL Invalid Interpretation Code 0.0-0.1 [facility] Eosinophils/100 WBC Auto (Bld) 3.2 % Invalid Interpretation Code [facility] Erythrocyte distribution width Auto Ratio (RBC) 14.2 % Invalid Interpretation Code 10.8-14.8 [facility] Hematocrit Auto Volume Fraction (Bld) 34.70 % Invalid Interpretation Code 36.0-48.0 [facility] Hemoglobin S Solubility test Ql (Bld) 11.7 Invalid Interpretation Code 12.0-16.0 [facility] Lymphocytes/100 WBC Auto (Bld) 43.3 % Invalid Interpretation Code [facility] MCH Auto Entitic mass (RBC) 27.1 pg Invalid Interpretation Code 27.0-34.0 [facility] MCHC Auto mass conc (RBC) 33.7 g/dL Invalid Interpretation Code 31.0-36.0 [facility] MCV Auto Entitic volume (RBC) 80.5 fL Invalid Interpretation Code 80.-100. [facility] Monocytes/100 WBC Auto (Bld) 6.5 % Invalid Interpretation Code [facility] Neutrophils/100 WBC Auto (Bld) 46.1 % Invalid Interpretation Code [facility] Nucleated RBC/100 WBC Ratio (Bld) 0.1 10*3/uL Invalid Interpretation Code 0.1-0.4 [facility] Nucleated RBC/100 WBC Ratio (Bld) 1.9 10*3/uL Invalid Interpretation Code 0.8-5.2 [facility] Nucleated RBC/100 WBC Ratio (Bld) 0.3 10*3/uL Invalid Interpretation Code 0.1-0.9 [facility] Nucleated RBC/100 WBC Ratio (Bld) 2.0 10*3/uL Invalid Interpretation Code 1.3-9.1 [facility] RBC Auto #/vol (Bld) 4.310 10*6/uL Invalid Interpretation Code 4.00-5.50 [facility] Metabolic Panelon 01-25-2018 Albumin mass conc 4.10 g/dL Invalid Interpretation Code 3.5-5.2 [facility] ALP enzyme act/vol 50 U/L Invalid Interpretation Code 30-111 [facility] ALT enzyme act/vol 14 U/L Invalid Interpretation Code 5-40 [facility] Anion gap 3 molar conc 12 mmol/L Invalid Interpretation Code 10-19 [facility] AST enzyme act/vol 13 U/L Invalid Interpretation Code 9-40 [facility] Calcium mass conc 9.90 mg/dL Invalid Interpretation Code 8.5-10.5 [facility] Chloride molar conc 103 mmol/L Invalid Interpretation Code 95-107 [facility] CO2 molar conc 28 mmol/L Invalid Interpretation Code 19-31 [facility] Creatinine mass conc 1.0 mg/dL Invalid Interpretation Code 0.6-1.3 [facility] Glucose mass conc 89 mg/dL Invalid Interpretation Code 70-99 [facility] Potassium molar conc 4.30 mmol/L Invalid Interpretation Code 3.5-5.4 [facility] Protein mass conc 6.0 g/dL Invalid Interpretation Code 6.1-8.3 [facility] Protein mass conc 0.59 g/dL Invalid Interpretation Code <0.5 [facility] Sodium molar conc 143 mmol/L Invalid Interpretation Code 135-146 [facility] Urea nitrogen mass conc 14.0 mg/dL Invalid Interpretation Code 8-23 [facility] Otheron 10-04-2018 Bilirubin Ql (U) 0.2 Invalid Interpretation Code <1.3 [facility] WBC LM Ql (Sput) 4.4 Invalid Interpretation Code 3.7-10.8 [facility] 74.5 Invalid Interpretation Code >59 [facility] 237 Invalid Interpretation Code 150.-450. [facility] 15 Invalid Interpretation Code 0-30 [facility] 64.3 Invalid Interpretation Code >59 [facility] Thyroidon 01-25-2018 T4 free mass conc 1.140 ng/dL Invalid Interpretation Code 0.80-1.90 [facility] Thyrotropin Qn 1.750 uIU/mL Invalid Interpretation Code 0.400-4.100 [facility] Progress Noteon 10-23-2017 HIM IP Note OR Ice Delivery Driver Normal [facility] HIM IP Note OR Ice Delivery Driver Normal [facility] Otheron 09-20-2017 3 Invalid Interpretation Code [facility] 3 Invalid Interpretation Code [facility] Cardiacon 09-14-2017 Cholesterol 220 mg/dL Invalid Interpretation Code <200 [facility] HDL Cholesterol 77.0 mg/dL Invalid Interpretation Code >39 [facility] Triglyceride 113.0 mg/dL Invalid Interpretation Code <150 [facility] Hematologyon 09-14-2017 Basophils Auto #/vol (Bld) 1.0 % Invalid Interpretation Code [facility] Basophils/100 WBC Auto (Bld) 0.1 K/uL Invalid Interpretation Code 0.0-0.1 [facility] Eosinophils/100 leukocytes 2.9 % Invalid Interpretation Code [facility] Erythrocyte distribution width Auto Ratio (RBC) 14.1 % Invalid Interpretation Code 10.8-14.8 [facility] Erythrocytes (RBC) 4.230 10*6/uL Invalid Interpretation Code 4.00-5.50 [facility] Hematocrit (HCT) 37.0 % Invalid Interpretation Code 36.0-48.0 [facility] Hemoglobin S presence 11.7 Invalid Interpretation Code 12.0-16.0 [facility] Lipoprotein a mass conc 0.2 10*3/uL Invalid Interpretation Code 0.1-0.4 [facility] Lipoprotein a mass conc 2.0 10*3/uL Invalid Interpretation Code 0.8-5.2 [facility] Lipoprotein a mass conc 0.5 10*3/uL Invalid Interpretation Code 0.1-0.9 [facility] Lipoprotein a mass conc 2.6 10*3/uL Invalid Interpretation Code 1.3-9.1 [facility] Lymphocytes/100 leukocytes 37.6 % Invalid Interpretation Code [facility] [employer] MCH 27.7 pg Invalid Interpretation Code 27.0-34.0 [facility] MCHC mass conc (RBC) 31.6 g/dL Invalid Interpretation Code 31.0-36.0 [facility] MCV 87.5 fL Invalid Interpretation Code 80.-100. [facility] Monocytes/100 leukocytes 8.8 % Invalid Interpretation Code [facility] Neutrophils/100 leukocytes 49.5 % Invalid Interpretation Code [facility] WBC (Leukocytes) 5.2 10*3/uL Invalid Interpretation Code 3.7-10.8 [facility] Otheron 09-14-2017 Cholesterol crystals Infrared spectroscopy Ql (Stone) 220 mg/dL Invalid Interpretation Code <200 [facility] Cholesterol to HDL Ratio 2.9 {ratio} Invalid Interpretation Code <5 [facility] LDL to HDL Ratio 1.6 Invalid Interpretation Code <3.5 [facility] Lipoprotein.beta/Lipo protein.alpha mass ratio 1.6 Invalid Interpretation Code <3.5 [facility] PreB-LP SerPl-mCnc 23.0 mg/dL Invalid Interpretation Code <30 [facility] PreB-LP SerPl-mCnc 120.0 mg/dL Invalid Interpretation Code <130 [facility] WBC LM Ql (Sput) 5.2 Invalid Interpretation Code 3.7-10.8 [facility] 298 Invalid Interpretation Code 150.-450. [employer] [facility] Thyroidon 09-14-2017 Thyroid stimulating hormone (TSH) 2.270 uIU/mL Invalid Interpretation Code 0.40-4.10 [facility] Thyroxine (T4) free 0.990 ng/dL Invalid Interpretation Code 0.80-1.90 [facility] Vital Signs Date Time Vital Sign Value Performing Clinician Ni barnard 01-31-2024 14:17-0400 Body mass index (BMI) [Ratio] 62.69 kg/m2 Erica Pompa CERTIFIED REGISTERED NURSE ANESTHETIST Work Phone: [facility] 01-31-2024 14:17-040 Body temperature 97.2 [degF] Erica Alexanderk CERTIFIED REGISTERED NURSE ANESTHETIST Work Phone: [facility] 01-31-2024 14:17-0400 Body weight 145.6 kg Erica Pompa CERTIFIED REGISTERED NURSE ANESTHETIST Work Phone: [facility] 01-31-2024 14:17-0400 Diastolic blood pressure 80 mm[Hg] Erica Menonpatrick CERTIFIED REGISTERED NURSE ANESTHETIST Work Phone: [facility] 01-31-2024 14:17-0400 Heart rate 57 /min Erica Siddiquitrick CERTIFIED REGISTERED NURSE ANESTHETIST Work Phone: [facility] 01-31-2024 14:17-0400 SaO2% (BldA) [Mass fraction] 94 % Erica Siddiquitrick CERTIFIED REGISTERED NURSE ANESTHETIST Work Phone: [facility] 01-31-2024 14:17-0400 Systolic blood pressure 152 mm[Hg] Erica Siddiquitrick CERTIFIED REGISTERED NURSE ANESTHETIST Work Phone: [facility] 02-13-2018 13:08-0400 BMI (Body Mass Index) 56.47 kg/m2 [facility] 02-13-2018 13:08-0400 Body Temperature 98 [degF] [facility] 02-13-2018 13:08-0400 BP Diastolic 80 mm[Hg] [facility] 02-13-2018 13:08-0400 BP Systolic 124 mm[Hg] [facility] 02-13-2018 13:08-0400 BSA (Body Surface Area) 2.[address] [facility] 02-13-2018 13:08-0400 Height 153.[address] [facility] 02-13-2018 13:08-0400 Pulse (Heart Rate) 74 /min [facility] 02-13-2018 13:08-0400 Pulse Oximetry 97 % [facility] 02-13-2018 13:08-0400 Respiratory Rate 20 /min Leda Agrawal [facility] 02-13-2018 13:08-0400 Weight 133.36 kg Leda Agrawal [facility] 02-13-2018 10:08-0400 Body height 153.67 cm Leda Agrawal CNP Work Phone: [facility] Work Phone: 02-13-2018 10:08-0400 Body mass index (BMI) [Ratio] 56.5 kg/m2 Leda Agrawal CNP Work Phone: [facility] Work Phone: 02-13-2018 10:08-0400 Body surface area Derived from formula 2.21 m2 Leda Agrawal CNP Work Phone: [facility] Work Phone: 02-13-2018 10:08-0400 Body temperature 98 [degF] Leda Agrawal CNP Work Phone: [facility] Work Phone: 02-13-2018 10:08-0400 Body weight 133.36 kg Leda Agrawal CNP Work Phone: [facility] Work Phone: 02-13-2018 10:08-0400 Diastolic blood pressure 80 mm[Hg] Leda Agrawal CNP Work Phone: [facility] Work Phone: 02-13-2018 10:08-0400 Heart rate 74 /min Leda Agrawal CNP Work Phone: [facility] Work Phone: 02-13-2018 10:08-0400 Respiratory rate 20 /min Leda Agrawal CNP Work Phone: [facility] Work Phone: 02-13-2018 10:08-0400 Systolic blood pressure 124 mm[Hg] Leda Agrawal CNP Work Phone: [facility] Work Phone: 01-25-2018 12:47-0400 BMI (Body Mass Index) 56.47 kg/m2 [facility] 01-25-2018 12:47-0400 Body Temperature 98.4 [degF] [facility] 01-25-2018 12:47-0400 BP Diastolic 82 mm[Hg] [facility] 01-25-2018 12:47-0400 BP Systolic 122 mm[Hg] [facility] 01-25-2018 12:47-0400 BSA (Body Surface Area) 2.[address] [facility] 01-25-2018 12:47-0400 Height 153.[address] [facility] 01-25-2018 12:47-0400 Pulse (Heart Rate) 73 /min [facility] 01-25-2018 12:47-0400 Pulse Oximetry 96 % [facility] 01-25-2018 12:47-0400 Respiratory Rate 18 /min [facility] 01-25-2018 12:47-0400 Weight 133.[address] [facility] 01-25-2018 09:47-0400 Body height 153.67 cm Leda Tanja [facility] Work Phone: [facility] Work Phone: 01-25-2018 09:47-0400 Body mass index (BMI) [Ratio] 56.5 kg/m2 Leda Tanja [facility] Work Phone: [facility] Work Phone: 01-25-2018 09:47-0400 Body surface area Derived from formula 2.21 m2 Leda Agrawal CNP Work Phone: [facility] Work Phone: 01-25-2018 09:47-0400 Body temperature 98.4 [degF] Leda Agrawal CNP Work Phone: [facility] Work Phone: 01-25-2018 09:47-0400 Body weight 133.36 kg Leda Agrawal CNP Work Phone: [facility] Work Phone: 01-25-2018 09:47-0400 Diastolic blood pressure 82 mm[Hg] Leda Agrawal CNP Work Phone: [facility] Work Phone: 01-25-2018 09:47-0400 Heart rate 73 /min Leda Agrawal CNP Work Phone: [facility] Work Phone: 01-25-2018 09:47-0400 Respiratory rate 18 /min Leda Agrawal CNP Work Phone: [facility] Work Phone: 01-25-2018 09:47-0400 Systolic blood pressure 122 mm[Hg] Leda Agrawal CNP Work Phone: [facility] Work Phone: 11-14-2017 18:20-0400 BMI (Body Mass Index) 56.47 kg/m2 Leda Agrawal [facility] 11-14-2017 18:20-0400 Body Temperature 97.4 [degF] Leda Agrawal [facility] 11-14-2017 18:20-0400 BP Diastolic 80 mm[Hg] Leda Agrawal [facility] 11-14-2017 18:20-0400 BP Systolic 130 mm[Hg] Leda Agrawal [facility] 11-14-2017 18:20-0400 BSA (Body Surface Area) 2.39 m2 Leda Agrawal [facility] 11-14-2017 18:20-0400 Height 153.[address] [facility] 11-14-2017 18:20-0400 Pulse (Heart Rate) 96 /min Leda Tanja [facility] 11-14-2017 18:20-0400 [facility] 95 % [facility] 11-14-2017 18:20-0400 Respiratory Rate 18 /min [facility] 11-14-2017 18:20-0400 Weight 133.[address] [facility] 11-14-2017 15:20-0400 Body height 153.67 cm Leda Agrawal CNP Work Phone: [facility] Work Phone: 11-14-2017 15:20-0400 Body mass index (BMI) [Ratio] 56.5 kg/m2 Leda Agrawal CNP Work Phone: [facility] Work Phone: 11-14-2017 15:20-0400 Body surface area Derived from formula 2.21 m2 Leda Agrawal CNP Work Phone: [facility] Work Phone: 11-14-2017 15:20-0400 Body temperature 97.4 [degF] Leda Agrawal CNP Work Phone: [facility] Work Phone: 11-14-2017 15:20-0400 Body weight 133.36 kg Leda Agrawal CNP Work Phone: [facility] Work Phone: 11-14-2017 15:20-0400 Diastolic blood pressure 80 mm[Hg] Leda Agrawal CNP Work Phone: [facility] Work Phone: 11-14-2017 15:20-0400 Heart rate 96 /min Leda Agrawal CNP Work Phone: [facility] Work Phone: 11-14-2017 15:20-0400 Respiratory rate 18 /min Leda Agrawal CNP Work Phone: [facility] Work Phone: 11-14-2017 15:20-0400 Systolic blood pressure 130 mm[Hg] Leda Agrawal CNP Work Phone: [facility] Work Phone: 10-12-2017 11:11-0400 BMI (Body Mass Index) 57.12 kg/m2 [facility] 10-12-2017 11:11-0400 Body Temperature 98.8 [degF] [facility] 10-12-2017 11:11-0400 BP Diastolic 83 mm[Hg] [facility] 10-12-2017 11:11-0400 BP Systolic 122 mm[Hg] [facility] 10-12-2017 11:11-0400 BSA (Body Surface Area) 2.[address] [facility] 10-12-2017 11:11-0400 Height 153.[address] [facility] 10-12-2017 11:11-0400 Pulse (Heart Rate) 79 /min [facility] 10-12-2017 11:11-0400 Pulse Oximetry 99 % [facility] 10-12-2017 11:11-0400 Respiratory Rate 18 /min [facility] 10-12-2017 11:11-0400 Weight 134.[address] [facility] 10-12-2017 10:11-0400 BMI (Body Mass Index) 57.12 kg/m2 [facility] 10-12-2017 10:11-0400 Body Temperature 98.8 [degF] [facility] 10-12-2017 10:11-0400 BP Diastolic 83 mm[Hg] [facility] 10-12-2017 10:11-0400 BP Systolic 122 mm[Hg] [facility] 10-12-2017 10:11-0400 BSA (Body Surface Area) 2.[address] [facility] 10-12-2017 10:11-0400 Height 153.[address] [facility] 10-12-2017 10:11-0400 Pulse (Heart Rate) 79 /min [facility] 10-12-2017 10:11-0400 Pulse Oximetry 99 % [facility] 10-12-2017 10:11-0400 Respiratory Rate 18 /min [facility] 10-12-2017 10:11-0400 Weight 134.[address] [facility] 10-12-2017 08:11-0400 Body height 153.67 cm [facility] Work Phone: [facility] Work Phone: 10-12-2017 08:11-0400 Body mass index (BMI) [Ratio] 57 kg/m2 Leda Agrawal CNP Work Phone: [facility] Work Phone: 10-12-2017 08:11-0400 Body surface area Derived from formula 2.22 m2 Leda Agrawal CNP Work Phone: [facility] Work Phone: 10-12-2017 08:11-0400 Body temperature 98.8 [degF] Leda Agrawal CNP Work Phone: [facility] Work Phone: 10-12-2017 08:11-0400 Body weight 134.72 kg Leda Agrawal CNP Work Phone: [facility] Work Phone: 10-12-2017 08:11-0400 Diastolic blood pressure 83 mm[Hg] Leda Agrawal CNP Work Phone: [facility] Work Phone: 10-12-2017 08:11-0400 Heart rate 79 /min Leda Agrawal CNP Work Phone: [facility] Work Phone: 10-12-2017 08:11-0400 Respiratory rate 18 /min Leda Agrawal CNP Work Phone: [facility] Work Phone: 10-12-2017 08:11-0400 Systolic blood pressure 122 mm[Hg] Leda Agrawal CNP Work Phone: [facility] Work Phone: 09-20-2017 17:04-0400 BP Diastolic 80 mm[Hg] Leda Agrawal [facility] 09-20-2017 17:04-0400 BP Systolic 136 mm[Hg] Leda Agrawal [facility] 09-20-2017 16:19-0400 BMI (Body Mass Index) 59.21 kg/m2 Leda Agrawal [facility] 09-20-2017 16:19-0400 Body Temperature 97.1 [degF] [facility] 09-20-2017 16:19-0400 BP Diastolic 80 mm[Hg] [facility] 09-20-2017 16:19-0400 BP Systolic 142 mm[Hg] [facility] 09-20-2017 16:19-0400 BSA (Body Surface Area) 2.[address] [facility] 09-20-2017 16:19-0400 Height 153.[address] [facility] 09-20-2017 16:19-0400 Pulse (Heart Rate) 94 /min [facility] 09-20-2017 16:19-0400 Pulse Oximetry 96 % [facility] 09-20-2017 16:19-0400 Respiratory Rate 18 /min [facility] 09-20-2017 16:19-0400 Weight 139.[address] [facility] 09-20-2017 16:04-0400 BP Diastolic 80 mm[Hg] [facility] 09-20-2017 16:04-0400 BP Systolic 136 mm[Hg] [facility] 09-20-2017 15:19-0400 BMI (Body Mass Index) 59.21 kg/m2 [facility] 09-20-2017 15:19-0400 Body Temperature 97.1 [degF] [facility] 09-20-2017 15:19-0400 BP Diastolic 80 mm[Hg] Leda Tanja [facility] 09-20-2017 15:19-0400 BP Systolic 142 mm[Hg] [facility] 09-20-2017 15:19-0400 BSA (Body Surface Area) 2.[address] [facility] 09-20-2017 15:19-0400 Height 153.[address] [facility] 09-20-2017 15:19-0400 Pulse (Heart Rate) 94 /min [facility] 09-20-2017 15:19-0400 Pulse Oximetry 96 % [facility] 09-20-2017 15:19-0400 Respiratory Rate 18 /min [facility] 09-20-2017 15:19-0400 Weight 139.[address] [facility] 09-20-2017 14:04-0400 Diastolic blood pressure 80 mm[Hg] Leda Agrawal CAD DEVELOPER Work Phone: [facility] Work Phone: 09-20-2017 14:04-0400 Systolic blood pressure 136 mm[Hg] Leda Agrawal CAD DEVELOPER Work Phone: [facility] Work Phone: 09-20-2017 13:19-0400 Body height 153.67 cm Leda Agrawal [facility] Work Phone: [facility] Work Phone: 09-20-2017 13:19-0400 Body mass index (BMI) [Ratio] 59.2 kg/m2 Leda Agrawal [facility] Work Phone: [facility] Work Phone: 09-20-2017 13:19-0400 Body surface area Derived from formula 2.26 m2 Leda Agrawal CNP Work Phone: [facility] Work Phone: 09-20-2017 13:19-0400 Body temperature 97.1 [degF] Leda Agrawal CNP Work Phone: [facility] Work Phone: 09-20-2017 13:19-0400 Body weight 139.71 kg Leda Agrawal CNP Work Phone: [facility] Work Phone: 09-20-2017 13:19-0400 Diastolic blood pressure 80 mm[Hg] Leda Agrawal CNP Work Phone: [facility] Work Phone: 09-20-2017 13:19-0400 Heart rate 94 /min Leda Agrawal CNP Work Phone: [facility] Work Phone: 09-20-2017 13:19-0400 Respiratory rate 18 /min Leda Agrawal CNP Work Phone: [facility] Work Phone: 09-20-2017 13:19-0400 Systolic blood pressure 142 mm[Hg] Leda Agrawal CNP Work Phone: [facility] Work Phone: 09-14-2017 12:35-0400 BMI (Body Mass Index) 59.76 kg/m2 Leda Agrawal [facility] 09-14-2017 12:35-0400 Body Temperature 97 [degF] Leda Agrawal [facility] 09-14-2017 12:35-0400 BP Diastolic 72 mm[Hg] Leda Agrawal [facility] 09-14-2017 12:35-0400 BP Systolic 122 mm[Hg] Leda Agrawal [facility] 09-14-2017 12:35-0400 BSA (Body Surface Area) 2.[address] [facility] 09-14-2017 12:35-0400 Height 153.[address] [facility] 09-14-2017 12:35-0400 Pulse (Heart Rate) 71 /min [facility] 09-14-2017 12:35-0400 Pulse Oximetry 97 % [facility] 09-14-2017 12:35-0400 Respiratory Rate 18 /min [facility] 09-14-2017 12:35-0400 Weight 141.[address] [facility] 09-14-2017 11:35-0400 BMI (Body Mass Index) 59.76 kg/m2 [facility] 09-14-2017 11:35-0400 Body Temperature 97 [degF] [facility] 09-14-2017 11:35-0400 BP Diastolic 72 mm[Hg] [facility] 09-14-2017 11:35-0400 BP Systolic 122 mm[Hg] [facility] 09-14-2017 11:35-0400 BSA (Body Surface Area) 2.[address] [facility] 09-14-2017 11:35-0400 Height 153.[address] [facility] 09-14-2017 11:35-0400 Pulse (Heart Rate) 71 /min [facility] 09-14-2017 11:35-0400 Pulse Oximetry 97 % Leda Agrawal [facility] 09-14-2017 11:35-0400 Respiratory Rate 18 /min Leda Agrawal [facility] 09-14-2017 11:35-0400 Weight 141.13 kg Leda Agrawal [facility] 09-14-2017 09:35-0400 Body height 153.67 cm Leda Agrawal CNP Work Phone: [facility] Work Phone: 09-14-2017 09:35-0400 Body mass index (BMI) [Ratio] 59.7 kg/m2 Leda Agrawal CNP Work Phone: [facility] Work Phone: 09-14-2017 09:35-0400 Body surface area Derived from formula 2.27 m2 Leda Agrawal CNP Work Phone: [facility] Work Phone: 09-14-2017 09:35-0400 Body temperature 97 [degF] Leda Agrawal CNP Work Phone: [facility] Work Phone: 09-14-2017 09:35-0400 Body weight 141.07 kg Leda Agrawal CNP Work Phone: [facility] Work Phone: 09-14-2017 09:35-0400 Diastolic blood pressure 72 mm[Hg] Leda Agrawal CNP Work Phone: [facility] Work Phone: 09-14-2017 09:35-0400 Heart rate 71 /min Leda Agrawal CNP Work Phone: [facility] Work Phone: 09-14-2017 09:35-0400 Respiratory rate 18 /min Leda Agrawal CNP Work Phone: [facility] Work Phone: 09-14-2017 09:35-0400 Systolic blood pressure 122 mm[Hg] Leda Agrawal CAD DEVELOPER Work Phone: [facility] Work Phone: Encounters Encounter Date Encounter Type Care Provider Facility Start: 03-19-2024 End: 03-19-2024 Telephone encounter Roger Rodas CMA [facility]N [facility] Start: 02-16-2024 End: 02-16-2024 Refill Janedebra Tinajero BUSINESS SEGMENT MANAGER-CAD DEVELOPER Work Phone: [facility] Start: 01-31-2024 End: 01-31-2024 Bamboo flowsheet Erica Alexanderk CERTIFIED REGISTERED NURSE ANESTHETIST Work Phone: [facility] Start: 01-31-2024 End: 01-31-2024 Bamboo flowsheet Erica Alexanderk CERTIFIED REGISTERED NURSE ANESTHETIST Work Phone: [facility] Start: 01-31-2024 End: 01-31-2024 Office outpatient visit 10 minutes Erica Alexanderk CERTIFIED REGISTERED NURSE ANESTHETIST Work Phone: [facility] Comment on above: Chronic obstructive pulmonary disease with acute exacerbation (CMS/HCC) (Primary Dx); Chronic rhinitis; Bipolar depression (CMS/HCC); ADORE (obstructive sleep apnea); Pulmonary emphysema, unspecified emphysema type (CMS/HCC) Start: 01-31-2024 End: 01-31-2024 Refill Jane Tinajero BUSINESS SEGMENT MANAGER-CAD DEVELOPER Work Phone: [facility] Start: 01-31-2024 End: 01-31-2024 ambulatory ERICA ALEXANDERK Not Available Start: 01-29-2024 End: 01-29-2024 Refill Janedebra Tinajero BUSINESS SEGMENT MANAGER-CAD DEVELOPER Work Phone: [facility] Start: 01-29-2024 End: 01-29-2024 Refill Erica Alexanderk CERTIFIED REGISTERED NURSE ANESTHETIST Work Phone: [facility] Comment on above: ARSH (generalized anx iety disorder) ([facility] Start: 01-22-2024 End: 01-22-2024 ambulatory HANANE CLEANING [facility] Start: 01-12-2024 End: 01-12-2024 ambulatory WANDA [facility] Start: 12-19-2023 End: 12-19-2023 ambulatory [facility] Start: 11-29-2023 End: 11-29-2023 ambulatory [facility] Start: 11-09-2023 End: 11-09-2023 ambulatory [facility] Start: 11-07-2023 End: 11-07-2023 ambulatory [facility] Start: 11-07-2023 End: 11-07-2023 ambulatory [facility] Start: 11-02-2023 End: 11-02-2023 ambulatory SHAWN E ZAMORA [facility] Start: 11-02-2023 End: 11-02-2023 ambulatory SHAIKH JHONY Not Available Start: 10-20-2023 End: 10-25-2023 Evaluation and management of inpatient WANDA [facility] Start: 10-18-2023 End: 10-25-2023 Evaluation and management of inpatient NATASHACHAN. RANDLE [facility] Start: 10-14-2023 End: 10-19-2023 Emergency department patient visit JOSE TORRES [facility] Start: 10-14-2023 End: 10-18-2023 Evaluation and management of inpatient NOT IN [facility] Start: 04-26-2023 End: 04-26-2023 ambulatory SHAIKH JHONY Not Available Start: 04-15-2022 End: 04-17-2022 ambulatory QUYNH ARCHER Facility: Start: 02-08-2022 End: 02-09-2022 ambulatory NANCI BEEBE Facility:[facility]1 Start: 12-30-2021 End: 12-31-[address] VU RIVERA Facility:[facility]1 Start: 01-20-2020 End: 01-23-2020 Patient encounter procedure TIM SHARMA [facility] Start: 01-20-2020 End: 01-22-2020 Subsequent hospital visit by physician Roman Palacio Dr Room 4 [facility] Radiology Comment on above: Chronic bilateral lo w back pain without sciatica Chronic neck pain; Chronic bilateral low back pain without sciatica Start: 07-31-2018 Patient encounter procedure Danilodevorahjohnathan Kirkpatrick Facility:[id number] Start: 07-20-2018 End: 07-20-2018 General Leda Tanja VARNER Work Phone: [facility] Work Phone: Start: 02-13-2018 End: 02-13-2018 Patient encounter procedure Leda Tanja CAD DEVELOPER Work Phone: [facility] Work Phone: Start: 02-13-2018 Office outpatient vi sit 15 minutes Leda Tanja Other [facility] Start: 01-25-2018 End: 01-25-2018 Patient encounter procedure Leda Tanja CAD DEVELOPER Work Phone: [facility] Work Phone: Start: 01-25-2018 Office outpatient vi sit 15 minutes Leda Tanja Other [facility] Start: 11-14-2017 Office outpatient vi sit 15 minutes Leda Tanja Other [facility] Start: 11-14-2017 End: 11-14-2017 Patient encounter procedure Leda Tanja CAD DEVELOPER Work Phone: [facility] Work Phone: Start: 10-12-2017 End: 10-12-2017 Patient encounter procedure Leda Tanja CAD DEVELOPER Work Phone: [facility] Work Phone: Start: 10-12-2017 End: 10-12-2017 Office outpatient visit 15 minutes Leda Agrawal Other [facility] Start: 10-12-2017 Polysom 6/>yrs sleep 4/> addl nicky [facility] Start: 10-12-2017 Polysom 6/>yrs sleep w/cpap 4/> addl nicky attnd [facility] Start: 09-20-2017 End: 09-20-2017 Office outpatient visit 15 minutes Leda Agrawal Other [facility] Start: 09-20-2017 End: 09-20-2017 Patient encounter procedure Leda Agrawal TELLY Work Phone: [facility] Work Phone: Start: 09-14-2017 End: 09-14-2017 Patient encounter procedure Leda Agrawal TELLY Work Phone: [facility] Work Phone: Start: 09-14-2017 Laboratory examinati on, unspecified Leda [facility] Start: 09-14-2017 Colonoscopy w/biopsy single/multiple [facility] Start: 09-14-2017 Dxa bone density kourtney dy 1/> sites [facility]el [facility] Start: 09-14-2017 End: 09-14-2017 Office outpatient new 45 minutes Leda Agrawal Other [facility] Procedures Date Procedure Procedure Detail Performing Clinician Start: 10-19-2023 Adult depression scr eening assessment Jane Tinajero APRN-CAD DEVELOPER Work Phone: Start: 01-20-2020 Radex spine lumbosac ral 2/3 views TIM SHARMA Start: 01-20-2020 Radex spine cervical 2 or 3 views TIM SHARMA Start: 01-20-2020 Radex spine lumbosac ral 2/3 views Tim Sharma Work Phone: Start: 01-20-2020 Radex spine cervical 2 or 3 views Tim Sharma Work Phone: Start: 10-14-2019 Colonoscopy Erica Emerson beatriz CERTIFIED REGISTERED NURSE ANESTHETIST Work Phone: Start: 02-25-2019 Mammography Erica Emerson kendelltrick CERTIFIED REGISTERED NURSE ANESTHETIST Work Phone: Start: 08-10-2018 Follow-up visit Start: [...] Screening for malign ant neoplasm of colon [facility] Start: 01-14-2025 Adult BMI Screening Adult BMI Screen ing [facility] Start: 11-28-2024 Tobacco Screening Tobacco Screening [facility] Start: 10-18-2024 Depression Screening Depression Scre ening [facility] Start: 10-13-2024 Screening for malign ant neoplasm of colon Colonoscopy [facility] Start: 03-25-2024 End: 03-25-2024 Patient encounter procedure 03/25/2024 10:30 AM EST Office Visit PHN [facility] [address] [place] [id number] Fran Wild MD [facility] [place] [address] PHN [facility] Start: 02-06-2024 End: 02-06-2024 Patient encounter procedure 02/06/2024 1:30 PM EDT Office Visit [facility] [address] [place] [address] Erica Pompa NP [address] [place] [address] [facility] Start: 01-31-2024 End: 01-31-2024 Patient encounter procedure 01/31/2024 2:00 PM EDT Office Visit [facility] [address] [place] [address] Erica Pompa, REINA [address] [place] [address] Arrived [facility] Comment on above: Arrived Start: 01-31-2024 End: 01-30-2025 XR Chest 2 Views XR chest 2 views Imaging Routine Chronic obstructive pulmonary disease with acute exacerbation (CMS/HCC) Expected: 01/31/2024, Expires: 01/30/2025 [facility] Work Phone: Comment on above: Expected: 01/31/2024 , Expires: 01/30/2025 Start: 12-24-2023 Influenza vaccination P [facility] Start: 01-30-2021 COVID-19 Vaccine (2 - Roxanne risk series) COVID-19 Vaccine (2 - Roxanne risk series) [facility] Start: 04-30-2020 End: 04-30-2020 Office Visit 04/30/2020 Office Visit Neurology Tim Sharma MD [address] [place] [address] [place] [address] [facility] Start: 02-26-2020 Screening for malign ant neoplasm of breast Mammogram [facility] Start: 12-24-2019 Influenza vaccination Flu vaccine (# 1) [place], [place] Start: 08-31-2019 Screening for malign ant neoplasm of lung Low dose CT lung screening [place], [place] Start: 02-13-2019 Creatinine measurement Creatinine mo nitoring [place], [place] Start: 11-30-2018 Potassium monitoring Potassium monit oring [place] Start: 11-08-2018 Lipid panel Lipid screen [place], [place] Start: 08-02-2018 FQHC visit, estab pt Established Palmira young [facility] Work Phone: Start: 10-12-2017 Polysom 6/>yrs sleep 4/> addl nicky attnd Polysomnography with CPAP testing [facility] Start: 10-12-2017 Polysom 6/>yrs sleep w/cpap 4/> addl nicky attnd Polysomnography with CPAP testing [facility] Start: 09-14-2017 Dual energy X-ray ph oton absorptiometry DEXA scan for body composition study [facility] Start: 08-22-2016 Screening for malign ant neoplasm of breast Breast cancer screen [place], [place] Start: 01-24-2016 Screening for malign ant neoplasm of cervix Cervical cancer screen [place] Start: 2014 Screening for malign ant neoplasm of colon Colon cancer screen colonoscopy [place] Start: 2014 Shingles Vaccine (1 of 2) Shingles Vaccine (1 of 2) [place] Start: 1994 Screening for malign ant neoplasm of cervix [facility] Start: 1985 Screening for malign ant neoplasm of cervix Pap Smear [facility] Start: 08-31-1983 Administration of varicella zoster vaccine Zoster (Shingles) Vaccine (1 of 2) [facility] Start: 08-31-1983 DTaP,Tdap and Td Vaccines (1 - Tdap) DTaP,Tdap and Td Vaccines (1 - Tdap) [facility] Start: 08-31-1983 DTaP/Tdap/Td vaccine (1 - Tdap) DTaP/Tdap/Td vaccine (1 - Tdap) [place] Start: 1982 Adult BMI Follow Up Plan Adult BMI F ollow Up Plan [facility] Start: 08-31-1979 HIV screening HIV screen [place], [place] Start: 1970 Pneumococcal 0-64 ye ars Vaccine (1 of 1 - PPSV23) Pneumococcal 0-64 years Vaccine (1 of 1 - PPSV23) [place], [place] Start: 1964 Hepatitis C screening Hepatitis C sc reen [place] Start: 1964 Screening for malign ant neoplasm of colon [facility] Start: 1964 Tobacco Counseling Tobacco Counselin g [facility] Immunizations Immunization Date Immunization Notes Care Provider Cheryl braswell 01-02-2021 COVID-19 Vaccine, vector-nr, rS-Ad26, PF, 0.5mL Jane Tinajero BUSINESS SEGMENT MANAGER-CAD DEVELOPER Work Phone: [facility] Payers Date Payer Category Payer Medicaid HMO [facility] MEDICAID [id number] 2022 Medicaid [id number] 2017 Medicaid [id number] [id number] 1959 Private Health Insurance [id number] [id number] 1964 Unknown [id number] 2.16.840.1.231611.3.579. 2.356 1964 Unknown [id number] 2.16.840.1.753261.3.579. 2.173 1964 Unknown [id number] 2.16.840.1.477049.3.579. 2.173 1964 Unknown [id number] 2.16.840.1.524464.3.579. 2.173 1964 Unknown [id number] 2.16.840.1.800444.3.579. 2.593 1964 Unknown [id number] 2.16.840.1.534899.3.579. 2.593 1964 Unknown [id number] 2.16.840.1.703563.3.579. 2.593 1964 Unknown [id number] 2.16.840.1.581098.3.579. 2.1286 1964 Unknown [id number] 2.16.840.1.673821.3.579. 2.128 1964 Unknown [id number] 2.16.840.1.400228.3.579. 2.1285 1964 Unknown [id number] 2.16.840.1.329200.3.579. 2.1285 1964 Unknown [id number] 2.16.840.1.526641.3.579. 2.1285 1964 Unknown [id number] 2.16.840.1.072418.3.579. 2.1285 1964 Unknown [id number] 2.16.840.1.848107.3.579. 2.1285 1964 Unknown [id number] 2.16.840.1.103851.3.579. 2.128 1964 Unknown [id number] 2.16.840.1.804559.3.579. 2.1285 1964 Unknown [id number] 2.16.840.1.378538.3.579. 2.128 1964 Unknown [id number] 2.16.840.1.688536.3.579. 2.1259 1964 Unknown [id number] 2.16.840.1.873657.3.579. 2.1258 1964 Unknown [id number] 2.16.840.1.025049.3.579. 2.1259 Social History Date Type Detail Facility Start: Current every day smoker [facility] Start: 01-20-2020 End: 12-25-2020 Current every day smoker [facility] End: 12-17-2012 [facility] Start: 01-20-2020 End: 06-04-2020 Cigarettes smoked current (pack per day) - Reported [facility] [employer] [facility] Start: 01-20-2020 End: 12-25-2020 Tobacco use and exposure [facility] Start: 01-20-2020 Alcohol intake Current non-dr suspension cord tier of alcohol (finding) [facility] Start: 1965 Sex Assigned At Not on file [place] Exposure to SARS-CoV -2 (event) Not sure [place] Tobacco smoking status Unknown if ever sm [facility] Work Phone: Start: 01-15-2024 Alcoholic beverage intake Ex-drinker (finding) [facility] Start: 06-04-2020 End: 10-19-2023 [facility] Utilities [facility] tem Has the [employer], or Sit[employer]ion threatened to shut off services in your home in past 12Mo No [facility] [employer] System How often to you hav e a drink containing alcohol? Monthly or less [facility] How many standard drinks containing alcohol do you have on a typical day? 1 or 2 [facility] [employer] System How often do you hav e 6 or more drinks on 1 occasion? Never [facility] Adolescent depressio n screening assessment 0 [facility] History of tobacco use Passive smoker [facility] Start: 11-02-2023 Alcoholic beverage intake Lifetime non-drinker (finding) [facility] Start: 11-27-2014 Sex Female (finding) [facility] Goals Date Patient Goal Desired Activity [...] confirm their upcoming appt on 03/25/24 in [place] with Fran Wild MD. The patient was instructed to call our office back to further confirm: [phone] documented in this encounter [facility] 03-19-2024 Telephone encounter Note Called patient and left a voicemail to confirm their upcoming appt on 03/25/24 in [place] with Fran Wild MD. The patient was instructed to call our office back to further confirm: [phone] [facility] 01-31-2024 History of Present illness Narrative Associated Problem(s): Chronic obstructive pulmonary disease ([facility]) Poorly controlled COPD. Currently taking Trelegy daily. Presents today with COPD exacerbation, productive cough, wheezing, shortness of breath X7 days. SPO2 97% on RA. Rhonchi and wheezing noted throughout. Pt is currently taking Prednisone 60mg daily. Ordered CXR and Prescribed Levaquin X7 days, Duonebs Q6H PRN, Albuterol inhaler to be used after acute exacerbation PRN. Advised pt to have CXR completed YVAN. Phoned [facility] radiology to call with results. Advised pt if dyspnea, chest pain, dizziness, or worsening symptoms occur to report to ER immediately. Pt verbalized understanding. Pt was following with Pulmonology in [place] 2 years ago, needs established with new Child Custody Evaluator. Has hx of ADORE- does not wear [...] Sore throat Was previously seeing Pulmonology in [place], has not been seen in 2 years. Needs to establish with new top lift compresser. Review of Systems Constitutional: Negative for activity [...] understanding. Pt was following with Pulmonology in [place] 2 years ago, needs established with new Child Custody Evaluator. Has hx of ADORE- does not wear [...] Orders Ambulatory referral to Pulmonology Bipolar depression ([facility]) Relevant Medications lamoTRIgine (LaMICtal) 100 MG tablet Chronic rhinitis Relevant Medications cetirizine (ZyrTEC) 10 MG tablet Emphysema of lung ([facility]) Relevant Orders Ambulatory referral to Pulmonology documented in this encounter [facility] 01-31-2024 Instructions Erica Pompa NP - 01/31/2024 2:00 PM EDT Start and finish all medications as prescribed. Have chest X ray completed YVAN Referral sent to pulmonology-Dr. Warner They will call you. If you do not hear from them within 2 weeks, call my office. Worsening shortness of breath, chest pain, gasping for air, dizziness, GO TO ER!!!! documented in this encounter [facility] 12-19-2023 Note Attestation signed by Elizabeth Hi MD at 12/19/2023 8:02 PM GC: I saw this patient. I personally performed the critical/vázquez portions that determines the level of service. I was directly involved in the management and treatment plan of the patient. I reviewed note and agree with the documentation [facility] Progress Note Subjective Danielle Montana is an 58 y.o. 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 She was admitted to [facility] between 10/18/2023-10/25/2023 initially presenting to [facility] with bilateral upper and lower extremity [...] CT GUIDED PERCUTANEO (more content not included)... [facility] 11-07-2023 Note Attestation signed by Elizabeth Hi MD at 11/07/2023 8:44 PM GC: I saw this patient. I personally performed the critical/vázquez portions that determines the level of service. I was directly involved in the management and treatment plan of the patient. I reviewed note and agree with the documentation [facility] New Patient Visit Subjective Chief Complaint: No chief complaint on file. Danielle Montana is an 58 y.o. 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 She was admitted to [facility] between 10/18/2023-10/25/2023 initially presenting to [facility] with bilateral upper and lower extremity [...] and hypercarbia (CMS/HCC) ERIN (acute kidney injury) ([facility]/HCC) Anxiety Astigmatism, regular B12 deficiency Bipolar depression (CMS/HCC) Cancer ([facility]/HCC) Cellulitis of left hand Cervical cancer ([facility]/HCC) Chronic obstructive pulmonary disease ([facility]) Chronic rhinitis COPD with acute exacerbation ([facility]/HCC) Emphysema of lung (CMS/[facility]) Class 3 severe obesity due to excess calories without serious comorbidity in adult ([facility]/HCC) Morbid (severe) obesity due to excess calories ([facility]/HCC) Morbid obesity (CMS/HCC) Cluster headache Degenerative [...] disturbance, psychotic disturbance, mood disturbance, or anxiety ([facility]) Mouth sores Tongue lesion MRSA (methicillin resistant Staphylococcus aureus) Nausea Non-recurrent acute suppurative otitis media of both ears without spontaneous rupture of tympanic membranes Open angle with borderline findings and high glaucoma risk in both eyes ADORE (obstructive sleep apnea) Osteoporosis Back pain Chest pain on exertion Other chest pain PAD (peripheral artery disease) ([facility]) Peripheral visual field defect, bilateral Pneumonia of both lungs due to infectious organism Presbyopia Henry's edema of vocal folds Right knee pain Smoking SOB (shortness of breath) Stiff muscles Swollen ankles Tear of articular cartilage of right knee, current, initial encounter Tinnitus (more content not included)... [facility] 02-09-2022 Note PROCEDURE: XR ANKLE RT [...] authenticated by: LO COSTA Date: 2022-02-09 06:49 [facility] 02-09-2022 Note PROCEDURE: XR ANKLE [...] by: LO COSTA Date: 2022-02-09 06:49 [facility] Evaluation note Includes: Assessments for all patient encountersNo Assessments Recorded Health [facility] Work Phone: Evaluation note Diagnosis ARSH (generalized [...] type No History of Present Illness RecordedHealth [facility] Work Phone: Instructions Instructions not supported for this document type No Instructions RecordedHealth [facility] Work Phone: InstructionsNot on filedocumented in this encounter [facility]Not on filedocumented in this encounter [facility] SystemPatient problem outcome Narrative Includes: Evaluations & Outcomes for active Goals No Outcomes RecordedHealth [facility] Work Phone: reason for referral (narrative)* Consultation (Routine) - Pending Review Specialty Diagnoses / Procedures Referred By Juan fonseca Referred To Contact Pulmonary Disease Diagnoses Chronic obstructive pulmonary disease with acute exacerbation (CMS/HCC) ADORE (obstructive sleep apnea) Pulmonary emphysema, unspecified emphysema type (CMS/HCC) Procedures [place] OFFICE/OUTPATIENT [facility] 60 MINUTES Erica Pompa NP [address] [place] [phone] Referral ID Status Reason Start Date Expiration Date Visits Requested Visits Authorized [id number] Pending Review Specialty Services Required 01/31/2024 07/29/2024 1 1 [facility] Narrative - Reported Review of Systems not supported for this document type No Review of [facility] Work Phone: History of Past Illness [...] Documents on File Type Date Recorded Patient Coroner Transport Technician Expl anation ACP-Advance Directive ACP-Power of Intertype Operator Documents on File Type Date Recorded Patient Coroner Transport Technician Expl anation Durable Power of Intertype Operator 01/12/2021 1:47 PM Living Will 01/12/2021 1:47 [...] section and content) DATE CREATED AUTHOR 10/23/2017 [facility] DATE CREATED AUTHOR AUTHOR'S ORGANIZ ATION 08/01/2018 [facility] DATE CREATED AUTHOR AUTHOR'S ORGANIZ ATION 08/11/2018 [facility] DATE CREATED AUTHOR AUTHOR'S ORGANIZ ATION 01/23/2020 [facility] DATE CREATED AUTHOR AUTHOR'S ORGANIZ ATION 04/19/2022 [facility] DATE CREATED AUTHOR AUTHOR'S ORGANIZ ATION 01/14/2024 [facility] DATE CREATED AUTHOR AUTHOR'S ORGANIZ ATION 01/23/2024 [facility] DATE CREATED AUTHOR AUTHOR'S ORGANIZ ATION 02/02/2024 [facility] EPIC DATE CREATED AUTHOR AUTHOR'S ORGANIZ ATION 03/09/2024 [facility] Reason for Visit (unrecogniz ed section and content) Reason Comments Med Refill Reason Onset Date Comments Med Refill 01/29/2024 Reason Comments Cough Care Teams (unrecognized sec tion and content) Entry Level Sales Consultant Relationship Specialty Start Date End Date Shawn Zamora MD [address] [place] [address] PCP - General Family Medicine 10/19/23 Entry Level Sales Consultant Relationship Specialty Start Date End Date Vu Rivera MD [address] [place] [phone] PCP - General Family Medicine 12/12/23 Erica Pompa NP [address] [place] [phone] Nurse Practitioner Family Medicine 12/12/23 Entry Level Sales Consultant Relationship Specialty Start Date End Date Vu Rivera MD [address] [place] [phone] PCP - General Family Medicine 12/12/23 Erica Pompa NP [address] [place] [phone] Nurse Practitioner Family Medicine 12/12/23 Entry Level Sales Consultant Relationship Specialty Start Date End Date Vu Rivera MD [address] [place] [phone] PCP - General Family Medicine 12/12/23 Erica Pompa NP [address] [facility] [place] [address] Nurse Practitioner Family Medicine 12/12/23 Entry Level Sales Consultant Relationship Specialty Start Date End Date Shawn Zamora MD [address] [place] [address] PCP - General Family Medicine 10/19/23 FOR [...] BE BASED ON THE PRIMARY CLINICAL RECORDS. [employer] provides no warranty or guarantee of the accuracy or completeness of information in this document.
[2024-04-08] MEDS: ALBUTEROL SULFATE 2.5 MG/3 ML VIAL NEB IH (11:50)
[2024-04-08] MEDS: METHYLPREDNISOLONE SOD SUCC PF 125 MG/2 ML VIAL IVP (11:54)
[2024-04-08 11:59] LABS: Basophils Percent Auto 0.3 % (0.2-2.0); Eosinophils Absolute Auto 0.1 10^3/uL (0.0-0.7); Eosinophils Percent Auto 1.2 % (0.9-7.0); Hematocrit 35.1 % (36.0-48.0); Hemoglobin 10.7 g/dL (12.0-16.0); Immature Granulocytes Abs Auto 0.04 10^3/uL (0.00-0.03); Immature Granulocytes Pct Auto 0.5 % (0.0-0.5); Lymphocytes Absolute Auto 1.1 10^3/uL (1.2-3.8); Lymphocytes Percent Auto 14.5 % (20.5-60.0); Mean Corpuscular HGB Conc 30.5 g/dL (29.9-35.2); Mean Corpuscular Volume 88.6 fL (81.0-99.0); Mean Platelet Volume 10.9 fL (9.5-13.5); Monocytes Absolute Auto 0.8 10^3/uL (0.3-0.8); Monocytes Percent Auto 11.2 % (1.7-12.0); Neutrophils Absolute Auto 5.4 10^3/uL (1.4-6.5); Neutrophils Percent Auto 72.3 % (43.0-75.0); Platelet Count 212 10^3/uL (150-450); Red Blood Count 3.96 10^6/uL (4.20-5.40); Red Cell Distribution Width 14.6 % (11.0-15.0); White Blood Count 7.5 10^3/uL (4.0-11.0)
[2024-04-08 12:11] LABS: Anion Gap 8.6; Calcium 9.3 mg/dL (8.5-10.1); Carbon Dioxide 33.4 mmol/L (21.0-32.0); Chloride 105 mmol/L (98-107); Estimated GFR (African America 51 (>=60 mL/min/1.73m^2); Estimated GFR (Non-African Ame 42 (>=60 mL/min/1.73m^2); Glucose 98 mg/dL (74-106); Sodium 143 mmol/L (136-145); Troponin I High Sensitivity 18.7 pg/mL (4.0-51.3)
[2024-04-08 12:13] LABS: Influenza Virus A Antigen Negative; Influenza Virus B Antigen Negative; Internal Control Within Normal Limits
[2024-04-08 12:14] LABS: SARS-CoV-2 Ag POSITIVE (NEGATIVE)
[2024-04-08] MEDS: FUROSEMIDE 40 MG/4 ML VIAL IVP (13:46)
--- NOTE | 2024-04-08 14:08 | CA_ITS ---
Patient Name: DANIELLE MONTANA MR#: [id number] : 1965 Exam Date: 04/08/2024 Ordering Doctor: JOSÉ DUMAS . ECHOCARDIOGRAM REPORT PROCEDURE: CA ECHO DOPPLER COMPLETE INDICATIONS: new onset chf, elevated probnp, SOB, Covid positive COMPARISON: None. DESCRIPTION: COMPLETE ECHOCARDIOGRAM Real-time transthoracic echocardiography with 2D, M-mode, spectral and color flow Doppler performed. QUALITY: Technical quality was good. LEFT VENTRICLE: Normal chamber size. Thickened septal wall. Global left ventricular systolic function is normal. LV EF: Estimated left ventricular ejection fraction is 55-60 %. DIASTOLIC: Normal diastolic function. ATRIAL SEPTUM: LEFT ATRIUM: Normal chamber size. RIGHT ATRIUM: Normal chamber size. RIGHT VENTRICLE: Normal chamber size. Normal right ventricular systolic function. TRICUSPID VALVE: Normal mobility and thickness. No stenosis with trivial regurgitation. Unable to assess right-sided pressures due to lack of measurable tricuspid regurgitation. MITRAL VALVE: Normal mobility and thickness. No evidence of mitral valve stenosis. There is no mitral annular calcification. Trivial mitral regurgitation. AORTIC VALVE: Normal trileaflet appearance. Thickened aortic valve. Normal leaflet mobility. No evidence of aortic valve stenosis. No aortic regurgitation. AORTIC ROOT: Normal diameter and appearance. PULMONIC VALVE: Normal thickness and mobility. No stenosis. Trivial regurgitation. PERICARDIUM: No evidence of pericardial effusion. IVC: Collapses with inspirations. Normal size. PLEURA: CONCLUSION: 1. Normal ventricular size and systolic function. LVEF is estimated at 55 to 60%. 2. No significant valvular dysfunction. 3. Unable to assess right-sided pressures due to lack of measurable tricuspid regurgitation. 4. No pericardial effusion. Adult Echocardiography Procedure Report Left Ventricle LVEDD (3.7 - 5.6 cm): 5.09 cm LVESD (2.2 - 4.0 cm): 3.28 cm LVIVS thickness (0.6 - 1.2 cm): 1.44 cm LVPW thickness (0.5 - 1.0 cm): 1.06 cm e': 0.09 m/s E - e': 10.92 LVOT Max Gradient: 4.62 mm[Hg] LVOT Area (cm2): 1.07 m/s Peak Velocity (LVOT): 1.07 m/s Mean Velocity (LVOT): 0.67 m/s LVOT Diameter 2.05 cm Left Ventricular Ejection Fraction: 55-60 % Left Atrium LA Volume Index (2D A2C): 34.88 ml/m2 Left Atrium Systolic Dimension: 3.38 cm Mitral Valve MV E to A Ratio: 1.14 Mitral Valve A-Wave Peak Velocity: 0.86 m/s Mitral Valve E-Wave Peak Velocity: 0.98 m/s Right Ventricle RV Internal Diastolic Dimension: 3.57 cm Aorta AO Root Diam: 3.29 cm Ascending Ao Diam: 3.11 cm Aortic Valve AoV Area (Peak Michael): 1.97 cm2, 1.97 cm2 AoV Area (VTI): 1.98 cm2, 1.98 cm2 Peak Velocity(Antegrade Flow): 1.79 m/s Peak Gradient(Antegrade Flow): 12.83 mm[Hg] Mean Velocity(Antegrade Flow): 1.20 m/s Mean Gradient(Antegrade Flow): 6.61 mm[Hg] Velocity Time Integral: 39.53 cm Tricuspid Valve Peak Velocity (Regurgitant Flow): 2.47 m/s, 2.33 m/s Pulmonic Valve Right Atrium Right Atrium Systolic Pressure: 48.35 ml, 48.35 ml Dictated by: Alan Saunders M.D. on 04/08/2024 at 17:37 Approved by: Alan Saunders M.D. on 04/08/2024 at 17:41
--- NOTE | 2024-04-08 14:17 | P.HP_ITS ---
HPI H&P: HPI History of Present Illness Chief complaint: SHORTNESS OF BREATH, CHF, COVID POSITIVE Narrative: Patient is a 58 y.o white female with past medical history of Tobacco abuse, Hypertension, COPD, iron def anemia, morbid obesity, lower ext edema, Bipolar depression, autoimmune kidney disease, dementia, who has been to [facility] ER monthly for shortness of breath and has been treated for COPD exacerbations. Today she presented again with shortness of breath but was found to have bilateral pulm edema with increased bilateral lower ext edema with shortness of breath. Patient states that she was started on Bumex for lower ext swelling, She has no known history of heart failure. She does not weigh herself. ER findings with proBNP of 3427, trop 18.7, Cr 1.3, GFR 42, WBC's 7.5, Hb 10.7 and positive covid test; chest X-ray showed pulmonary vascular congestion. D- dimer 0.67. Patient is saturating 94% on room air, RR 25, pulse 50 and bp 180/64. Patient was given IV lasix 40mg x 1 in the ER and madden catheter was placed for monitor output. Opioid HPI Opioid Management Most Recent Pain and Opioid Data: Last Pain Scale 8 04/08/24 15:16 04/08/24 Last MAR Pain Assessment 04/08/24 15:16 Review of Systems ROS Narrative ROS: a complete review of systems were reviewed with patient and are positive as below or listed in History of Chief Complaint. General: no fever, chills, night sweats Head: no headache, trauma, visual changes, nausea or vomiting Skin: no reported rashes, itching or sores Eyes: no blurriness of vision Ears: no reported hearing loss, vertigo, earache, or tinnitus Throat: no sore throat, hoarseness, swelling of neck, or tongue pain Heart: no chest pain Lungs: shortness of breath GI: no diarrhea or vomiting/nausea Urinary: no urinary urgency, frequency or pain Neuro: no numbness or tingling HEM: no bleeding issues or bruising ENDO: no thyroid problems Psych: anxiety or depression [facility] Medical History (Updated 04/08/24 @ 15:56 by Sheri Marcum DO) Morbid obesity with BMI of 60.0-69.9, adult ?E66.01 - Morbid (severe) obesity due to excess calories (ICD-10) ?Z68.44 - Body mass index [BMI] 60.0-69.9, adult (ICD-10) Iron deficiency anemia ?D50.9 - Iron deficiency anemia, unspecified (ICD-10) Primary hypertension ?I10 - Essential (primary) hypertension (ICD-10) COPD (chronic obstructive pulmonary disease) ?J44.9 - Chronic obstructive pulmonary disease, unspecified (ICD-10) Tobacco abuse ?Z72.0 - Tobacco use (ICD-10) Social History Smoking status: Current every day smoker Little interest or pleasure in doing things: not at all Feeling down, depressed, or hopeless: not at all Meds Home Medications and Allergies Home Medications ?Medication ?Instructions ?Recorded ?Confirmed ?Type albuterol sulfate 90 mcg/actuation 2 puff inhalation Q6H 03/23/24 04/08/24 History aerosol inhaler buspirone 15 mg tablet 15 mg PO DAILY 03/23/24 04/08/24 History carvedilol 25 mg tablet 25 mg PO Q12H 03/23/24 04/08/24 History donepezil 10 mg tablet 10 mg PO DAILY 03/23/24 04/08/24 History duloxetine 60 mg capsule,delayed 60 mg PO DAILY 03/23/24 04/08/24 History release ferrous sulfate 325 mg (65 mg 325 mg PO DAILY 03/23/24 04/08/24 History iron) tablet (FeroSul) bumetanide 1 mg tablet 1 mg PO DAILY 04/08/24 04/08/24 History lamotrigine 100 mg tablet 100 mg PO DAILY 04/08/24 04/08/24 History Allergies Allergy/AdvReac Type Severity Reaction Status Date / Time codeine Allergy Intermediate Nausea Verified 01/20/24 10:41 pregabalin (From Lyrica) Allergy Intermediate Rash Verified 01/20/24 10:41 sulfamethoxazole (From Allergy Intermediate Rash Verified 01/20/24 10:41 Bactrim) trimethoprim (From Bactrim) Allergy Intermediate Rash Verified 01/20/24 10:41 Exam Narrative Exam Narrative: General: Patient is alert, and oriented to person, place and time with normal affect, proper hygiene, morbid obesity Skin: no visible rashes, or ulcers Head: atraumatic, acephalic Eyes: PERRLA, no nystagmus present, conjunctiva clear, no scleral icterus Ears: normal gross auditory acuity Heart: Normal rate and rhythm, no murmurs/rubs/gallops Lungs: audible wheezes, no crackles Abdomen: Central obesity, Normal audible bowel sounds, no distension Musculoskeletal: +2 pitting/ swelling bilateral lower extremities Neuro: CN II-X grossly intact Constitutional Vital Signs, click to edit/add: Last Vital Signs Temp 98.3 F 04/08/24 11:22 Pulse 59 L 04/08/24 12:40 Resp 25 H 04/08/24 12:40 BP 180/64 H 04/08/24 13:50 Pulse Ox 94 L 04/08/24 12:40 O2 Del Method Room Air 04/08/24 11:41 Results Labs Labs: Short CBC 04/08/24 Range/Units 11:35 WBC 7.5 (4.0-11.0) 10^3/uL Hgb 10.7 L (12.0-16.0) g/dL Hct 35.1 L (36.0-48.0) % Plt Count 212 (150-450) 10^3/uL BMP 04/08/24 11:35 Sodium 143 Potassium 4.0 Chloride 105 Carbon Dioxide 33.4 H BUN 13.0 Creatinine 1.30 H Glucose 98 Calcium 9.3 Assessment and Plan Assessment and Plan (1) Acute CHF: Assessment and Plan: Will check Echo, continue diuresis with lasix 40mg IV x 1, strict in's and outs with fluid restriction of 1.5L. Low salt diet. Cardiology consult. Continue coreg, add losartan. Qualifiers: Heart failure type: unspecified Qualified Code(s): I50.9 - Heart failure, unspecified (2) Tobacco abuse: Assessment and Plan: no desire to quit, does not want a nicotine patch (3) COPD (chronic obstructive pulmonary disease): Assessment and Plan: continue PRN albuterol Qualifiers: COPD type: unspecified COPD Qualified Code(s): J44.9 - Chronic obstructive pulmonary disease, unspecified (4) Primary hypertension: Assessment and Plan: continue coreg, add losartan (5) Iron deficiency anemia: Assessment and Plan: hemoglobin stable, continue daily iron supplement Qualifiers: Iron deficiency anemia type: unspecified iron deficiency Qualified Code(s): D50.9 - Iron deficiency anemia, unspecified (6) Morbid obesity with BMI of 60.0-69.9, adult: Assessment and Plan: would benefit from weight reduction (7) COVID-19: Assessment and Plan: Patient afebrile, history of cough and congestion for months, less likely acute illness requiring steroids and antivirals, respiratory precautions. Plan patient is a full code continue heparin for DVT prophylaxis Patient is inpatient status and is expected to stay 2 days for diuresis and work up of acute heart failure. Urinary Catheter Management Urinary Catheter Management Urethral: Cath placed during this visit: yes Urethral indwelling: Yes Reason for continuing: measure accurate output Insertion date: 04/08/24 Insertion time: 13:55
[2024-04-08 14:25] LABS: D Dimer 0.67 mg/L FEU (<=0.59)
[2024-04-08] MEDS: ALBUTEROL SULFATE 200 PUFF/6.7 GM INHALER IH ×3 (15:07→22:59)
[2024-04-08] MEDS: ACETAMINOPHEN 500 MG TABLET 1000 MG PO (15:16)
[2024-04-08] MEDS: LOSARTAN POTASSIUM 50 MG TABLET PO ×2 (15:16→19:52)
--- NOTE | 2024-04-08 16:20 | CT_ITS ---
[facility] [place] [id number] Patient Name: DANIELLE MONTANA MRN: [id number] date: 1965 Sex: F Assigned Patient Location: [place] Current Patient Location: Accession/Order Number: [id number] Exam Date: 04/08/2024 16:17 Report Date: 04/08/2024 17:07 At the request of: JOSÉ DUMAS Procedure: CT chest wo con EXAM: CT scan of the chest without contrast. Dose reduction technique used: Automated exposure control and/or adjustment of the mA and/or kV according to patient size and/or use of iterative reconstruction technique. REASON FOR EXAM: shortness of breath, impaired renal function,ddime COMPARISON: CT scan dated 12/29/2020 FINDINGS: Small amount of patchy airspace opacities scattered throughout both lungs, more evident on the right. No pneumothorax. No pleural effusion. No acute fractures. No definite lymphadenopathy in the chest. No definite coronary atherosclerotic ossifications. Paraseptal emphysema in both lungs. Remainder unremarkable. CT/CT chest wo con IMPRESSION: Small amount of airspace opacities in both lungs that likely represent pneumonia. Electronically authenticated by: KIP BROWN Date: 04/08/2024 17:07
[2024-04-08] MEDS: HEPARIN SODIUM (PORCINE) 5,000 UNIT/ML VIAL 5000 UNIT SUBQ (18:14)
--- NOTE | 2024-04-08 18:57 | PM.CACN ---
History of Present Illness History of Present Illness Consult date: 04/08/24 Requesting physician: Sheri Marcum Consult reason: shortness of breath Chief complaint: SHORTNESS OF BREATH, CHF, COVID POSITIVE Narrative: This is a 58-year-old woman with prior history of hypertension, COPD/emphysema, obesity, and obstructive sleep apnea who is currently admitted with COVID-pneumonia. I am consulted due to shortness of breath. As well as uncontrolled hypertension. She reports that she has been having significant symptoms of short of breath as well as lower extremity edema over the past several days. She denies chest pain. She has been coughing significantly. She has no prior clear cardiac history from the available documentation. A prior echocardiogram in September 2023 showed normal ventricular function and no significant valvular dysfunction. Review of her current biochemical profile shows elevated NT proBNP and negative troponin. Her creatinine is elevated and her GFR is reduced consistent with stage IIIa CKD. Her blood pressure is significantly elevated. She was given losartan 50 mg once as well as a 20 mg dose of IV Lasix to which she had significant diuresis. Currently she feels slightly better. At she is still significantly short of breath. Review of Systems ROS Status of ROS 10 or more systems reviewed and unremarkable except as noted in history and below Cardiovascular Reports: edema, shortness of breath with exertion and shortness of breath when lying down; Denies: chest pain or palpitations Respiratory Reports: shortness of breath, cough and wheezing [facility] Medical History (Updated 04/08/24 @ 19:04 by EDUARDO JOSHI) Morbid obesity with BMI of 60.0-69.9, adult ?E66.01 - Morbid (severe) obesity due to excess calories (ICD-10) ?Z68.44 - Body mass index [BMI] 60.0-69.9, adult (ICD-10) Iron deficiency anemia ?D50.9 - Iron deficiency anemia, unspecified (ICD-10) Primary hypertension ?I10 - Essential (primary) hypertension (ICD-10) COPD (chronic obstructive pulmonary disease) ?J44.9 - Chronic obstructive pulmonary disease, unspecified (ICD-10) Tobacco abuse ?Z72.0 - Tobacco use (ICD-10) Social History Smoking status: Current every day smoker Highest level of school completed/degree received: 12th grade, no diploma Little interest or pleasure in doing things: not at all Feeling down, depressed, or hopeless: not at all Meds Home Medications and Allergies Home Medications ?Medication ?Instructions ?Recorded ?Confirmed ?Type albuterol sulfate 90 mcg/actuation 2 puff inhalation Q6H 03/23/24 04/08/24 History aerosol inhaler buspirone 15 mg tablet 15 mg PO DAILY 03/23/24 04/08/24 History carvedilol 25 mg tablet 25 mg PO Q12H 03/23/24 04/08/24 History donepezil 10 mg tablet 10 mg PO DAILY 03/23/24 04/08/24 History duloxetine 60 mg capsule,delayed 60 mg PO DAILY 03/23/24 04/08/24 History release ferrous sulfate 325 mg (65 mg 325 mg PO DAILY 03/23/24 04/08/24 History iron) tablet (FeroSul) bumetanide 1 mg tablet 1 mg PO DAILY 04/08/24 04/08/24 History lamotrigine 100 mg tablet 100 mg PO DAILY 04/08/24 04/08/24 History Allergies Allergy/AdvReac Type Severity Reaction Status Date / Time codeine Allergy Intermediate Nausea Verified 01/20/24 10:41 pregabalin (From Lyrica) Allergy Intermediate Rash Verified 01/20/24 10:41 sulfamethoxazole (From Allergy Intermediate Rash Verified 01/20/24 10:41 Bactrim) trimethoprim (From Bactrim) Allergy Intermediate Rash Verified 01/20/24 10:41 Exam Constitutional Vital Signs, click to edit/add: Last Vital Signs Temp 98.0 F 04/08/24 18:30 Pulse 69 04/08/24 18:30 Resp 22 H 04/08/24 18:30 BP 185/87 H 04/08/24 18:30 Pulse Ox 92 L 04/08/24 18:30 O2 Del Method Room Air 04/08/24 18:30 Documenting provider has reviewed patient's vital signs: yes Common normals: oriented x3 Nutritional appearance: overweight Orientation/consciousness: Yes awake, Yes oriented to person, Yes oriented to place and Yes oriented to time HENMT Common normals: normocephalic Eye Common normals: conjunctivae normal Chest Common normals: inspection of chest normal Respiratory Auscultation: rales, rhonchi, wheezes and diminished lung sounds Cardio Common normals: regular rate, regular rhythm, S1 normal heart sound, S2 normal heart sound and no murmurs Jugular venous distention: no JVD (Unable to assess jugular venous pressure due to obese neck) GI Common normals: Normal to inspection, nondistended, normoactive bowel sounds present Extremity General: edema (+2 bilateral lower extremity edema) Neuro Common normals: oriented x3, moves all extremities and no focal motor deficits Psych Common normals: mental status grossly normal, thought process normal, cooperative and affect normal Results Labs and Meds Lab results: CBC 04/08/24 Range/Units 11:35 WBC 7.5 (4.0-11.0) 10^3/uL RBC 3.96 L (4.20-5.40) 10^6/uL Hgb 10.7 L (12.0-16.0) g/dL Hct 35.1 L (36.0-48.0) % Plt Count 212 (150-450) 10^3/uL Neut # (Auto) 5.4 (1.4-6.5) 10^3/uL Lymph # (Auto) 1.1 L (1.2-3.8) 10^3/uL [place] # (Auto) 0.8 (0.3-0.8) 10^3/uL Eos # (Auto) 0.1 (0.0-0.7) 10^3/uL Baso # (Auto) 0.0 (0.0-0.1) 10^3/uL Comprehensive Metabolic Panel 04/08/24 Range/Units 11:35 Sodium 143 (136-145) mmol/L Potassium 4.0 (3.5-5.1) mmol/L Chloride 105 (98-107) mmol/L Carbon Dioxide 33.4 H (21.0-32.0) mmol/L BUN 13.0 (7.0-18.0) mg/dL Creatinine 1.30 H (0.55-1.02) mg/dL Glucose 98 (74-106) mg/dL Calcium 9.3 (8.5-10.1) mg/dL Intake and Output 04/08/24 04/08/24 04/08/24 07:59 15:59 23:59 Output Total 1100 / 1100 Balance -1099 / 1100 Output: Urine Amount (Catheter) 1100 / 1100 Urethral 1100 1099 Other: Weight 151.953 kg Patient Weight 04/09/24 07:59 Weight 151.953 kg Imaging and Cardiology Echo: other (Echocardiogram today shows normal ventricular function and no significant valvular dysfunction.) EKG Interpretation ECG shows: sinus rhythm (Review of her EKG shows sinus rhythm without ST changes or QRS widening.) Assessment and Plan Assessment and Plan (1) Acute CHF: Qualifiers: Heart failure type: diastolic Qualified Code(s): I50.31 - Acute diastolic (congestive) heart failure (2) Tobacco abuse: (3) COPD (chronic obstructive pulmonary disease): Qualifiers: COPD type: unspecified COPD Qualified Code(s): J44.9 - Chronic obstructive pulmonary disease, unspecified (4) Primary hypertension: (5) Iron deficiency anemia: Qualifiers: Iron deficiency anemia type: unspecified iron deficiency Qualified Code(s): D50.9 - Iron deficiency anemia, unspecified (6) Morbid obesity with BMI of 60.0-69.9, adult: (7) COVID-19: Plan 1. Acute diastolic heart failure: This is evidenced by the shortness of breath, evidence of volume overload by exam with lower extremity edema as well as elevated NT proBNP levels. She has significant risk factors for development of diastolic heart failure including morbid obesity and hypertension as well as obstructive sleep apnea. At this time I recommend blood pressure control as below and to institute furosemide 40 mg IV once daily since she had good response to 20 mg dose. Follow-up renal function and electrolytes as diuresis is ongoing. 2. Uncontrolled hypertension: Increase losartan to 100 mg once daily and add amlodipine 10 mg once daily. 3. COVID-pneumonia: Treatment per primary team. 4. She will require a few days in hospital for diuresis and optimization of blood pressure control as well as treatment of the pneumonia. We can see her in the cardiology clinic in follow-up posthospitalization.
[2024-04-08] MEDS: CARVEDILOL 25 MG TABLET PO (21:01)
[2024-04-09] VITALS (22 sets, daily range): BP systolic 115–192; BP diastolic 58–80; PULSE 51–77; TEMP 36.2–36.8; O2SAT 92–97
[2024-04-09] MEDS: ALBUTEROL SULFATE 200 PUFF/6.7 GM INHALER IH ×6 (04:00→22:54)
[2024-04-09] MEDS: ACETAMINOPHEN 500 MG TABLET 1000 MG PO ×2 (04:08→12:19)
[2024-04-09] MEDS: HEPARIN SODIUM (PORCINE) 5,000 UNIT/ML VIAL 5000 UNIT SUBQ ×2 (05:23→18:33)
[2024-04-09 06:37] LABS: Basophils Percent Auto 0.1 % (0.2-2.0); Hematocrit 36.3 % (36.0-48.0); Hemoglobin 11.5 g/dL (12.0-16.0); Immature Granulocytes Abs Auto 0.05 10^3/uL (0.00-0.03); Immature Granulocytes Pct Auto 0.7 % (0.0-0.5); Lymphocytes Absolute Auto 0.8 10^3/uL (1.2-3.8); Lymphocytes Percent Auto 11.1 % (20.5-60.0); Mean Corpuscular HGB Conc 31.7 g/dL (29.9-35.2); Mean Corpuscular Hemoglobin 27.1 pg (26.7-34.0); Mean Corpuscular Volume 85.4 fL (81.0-99.0); Mean Platelet Volume 10.5 fL (9.5-13.5); Monocytes Absolute Auto 0.2 10^3/uL (0.3-0.8); Monocytes Percent Auto 3.2 % (1.7-12.0); Neutrophils Percent Auto 84.9 % (43.0-75.0); Platelet Count 205 10^3/uL (150-450); Red Blood Count 4.25 10^6/uL (4.20-5.40); Red Cell Distribution Width 14.2 % (11.0-15.0); White Blood Count 7.1 10^3/uL (4.0-11.0)
[2024-04-09 07:19] LABS: Alanine Aminotransferase 14 U/L (14-59); Albumin Globulin Ratio 0.8; Albumin Level 2.6 g/dL (3.4-5.0); Alkaline Phosphatase 43 U/L (46-116); Anion Gap 12.6; Aspartate Amino Transferase 13 U/L (15-37); BUN Creatinine Ratio 14.8; Bilirubin Total 0.4 mg/dL (0.2-1.0); Calcium 9.2 mg/dL (8.5-10.1); Carbon Dioxide 29.7 mmol/L (21.0-32.0); Chloride 104 mmol/L (98-107); Chol HDL Ratio 2.5; Cholesterol 243 mg/dL (<=200); Estimated GFR (African America 49 (>=60 mL/min/1.73m^2); Estimated GFR (Non-African Ame 40 (>=60 mL/min/1.73m^2); Globulin 3.2 g/dL; Glucose 138 mg/dL (74-106); HDL Cholesterol 99 mg/dL (40-60); Potassium 4.3 mmol/L (3.5-5.1); Sodium 142 mmol/L (136-145); Thyroid Stimulating Hormone 0.592 uIU/mL (0.358-3.740); Total Protein 5.8 g/dL (6.4-8.2); Triglycerides 92 mg/dL (<=150); VLDL CHOLESTEROL 18.4 mg/dL
[2024-04-09 07:42] LABS: Estimated Average Glucose 114 mg/dL; Glycohemoglobin A1C 5.6 % (4.5-6.2)
[2024-04-09] MEDS: CARVEDILOL 25 MG TABLET PO ×2 (08:55→20:08)
[2024-04-09] MEDS: DONEPEZIL HCL 10 MG TABLET PO (08:55)
[2024-04-09] MEDS: DULOXETINE HCL 60 MG CAPSULE.DR PO (08:55)
[2024-04-09] MEDS: BUSPIRONE HCL 15 MG TABLET PO (08:55)
[2024-04-09] MEDS: AMLODIPINE BESYLATE 5 MG TABLET 10 MG PO (08:56)
[2024-04-09] MEDS: FERROUS SULFATE 325 MG TABLET PO (08:56)
[2024-04-09] MEDS: FUROSEMIDE 40 MG/4 ML VIAL IVP (08:56)
[2024-04-09] MEDS: LAMOTRIGINE 100 MG TABLET PO (08:56)
[2024-04-09] MEDS: LOSARTAN POTASSIUM 50 MG TABLET 100 MG PO (08:56)
--- NOTE | 2024-04-09 09:30 | PM.PN ---
Progress Note: Subjective Subjective Interval history: Patient reports that she is tired this morning, not much rest last night. Good urine output overnight. Cardiology increased her losartan 100mg daily, added amlodipine 10mg daily and lasix. Overnight she developed bradycardia with first degree heart block on telemetry this persisted off and on until this morning. I have decreased the losartan to 50mg daily. Her lower ext edema has improved. She is still short of breath with conversing. Echo was overall good but right sided pressures could not be assessed. Her CT scan showed : Small amount of airspace opacities in both lungs that likely represent pneumonia. I have started her on azithromycin and rocephin. Exam Narrative Exam Narrative: General: Patient is alert, and oriented to person, place and time with normal affect, proper hygiene, morbid obesity Skin: no visible rashes, or ulcers Head: atraumatic, acephalic Eyes: PERRLA, no nystagmus present, conjunctiva clear, no scleral icterus Ears: normal gross auditory acuity Heart: Normal rate and rhythm, no murmurs/rubs/gallops Lungs: audible wheezes, no crackles Abdomen: Central obesity, Normal audible bowel sounds, no distension Musculoskeletal: +2 pitting/ swelling bilateral lower extremities Neuro: CN II-X grossly intact Constitutional Vital Signs, click to edit/add: Last Vital Signs Temp 97.2 F L 04/09/24 08:00 Pulse 52 L 04/09/24 08:00 Resp 20 04/09/24 08:00 BP 176/79 H 04/09/24 08:00 Pulse Ox 93 L 04/09/24 08:00 O2 Del Method Room Air 04/09/24 08:00 Progress Note: Objective Labs Labs: Short CBC 04/08/24 04/09/24 Range/Units 11:35 06:25 WBC 7.5 7.1 (4.0-11.0) 10^3/uL Hgb 10.7 L 11.5 L (12.0-16.0) g/dL Hct 35.1 L 36.3 (36.0-48.0) % Plt Count 212 205 (150-450) 10^3/uL BMP 04/08/24 04/09/24 11:35 06:25 Sodium 143 142 Potassium 4.0 4.3 Chloride 105 104 Carbon Dioxide 33.4 H 29.7 BUN 13.0 20.0 H Creatinine 1.30 H 1.35 H Glucose 98 138 H Calcium 9.3 9.2 Liver Function 04/09/24 Range/Units 06:25 Total Bilirubin 0.4 (0.2-1.0) mg/dL AST 13 L (15-37) U/L ALT 14 (14-59) U/L Alkaline Phosphatase 43 L (46-116) U/L Albumin 2.6 L (3.4-5.0) g/dL Progress Note: A&P Assessment and Plan (1) Acute CHF: Assessment and Plan: as evidence by edema, elevated proBNP, echo with preserved EF. Continue diuresis with lasix 40mg IV x 1, strict in's and outs with fluid restriction of 1.5L. Low salt diet. Cardiology consult. Continue coreg, add losartan. Qualifiers: Heart failure type: diastolic Qualified Code(s): I50.31 - Acute diastolic (congestive) heart failure (2) Community acquired bacterial pneumonia: Assessment and Plan: started rocephin and azith, albuterol as needed. also can be secondary to Covid 19 (3) Tobacco abuse: Assessment and Plan: no desire to quit, does not want a nicotine patch (4) COPD (chronic obstructive pulmonary disease): Assessment and Plan: continue PRN albuterol Qualifiers: COPD type: unspecified COPD Qualified Code(s): J44.9 - Chronic obstructive pulmonary disease, unspecified (5) Primary hypertension: Assessment and Plan: continue coreg, losartan (6) Iron deficiency anemia: Assessment and Plan: hemoglobin stable, continue daily iron supplement Qualifiers: Iron deficiency anemia type: unspecified iron deficiency Qualified Code(s): D50.9 - Iron deficiency anemia, unspecified (7) Morbid obesity with BMI of 60.0-69.9, adult: Assessment and Plan: would benefit from weight reduction (8) COVID-19: Assessment and Plan: Patient afebrile, history of cough and congestion for months, less likely acute illness requiring steroids and antivirals but treat secondary pneumonia seen on CT, respiratory precautions. (9) First degree heart block: Assessment and Plan: as seen on telemetry, normal electrolytes, decrease losartan back to 50mg daily. (10) ERIN (acute kidney injury): Assessment and Plan: monitor daily with diuresis, uncertain baseline. Plan patient is a full code continue heparin for DVT prophylaxis Patient is inpatient status and is expected to stay 1-2 more days days for diuresis and treatment of pneumonia Urinary Catheter Management Urinary Catheter Management Urethral: Cath placed during this visit: yes Urethral indwelling: Yes Reason for continuing: measure accurate output Insertion date: 04/08/24 Insertion time: 13:55
--- NOTE | 2024-04-09 11:44 | CM.NOTE ---
Rounds made with Dr. Marcum. Dr. Marcum reviews plan of care. No discharge today. Clarissa in agreement.
[2024-04-09] MEDS: 0.9 % SODIUM CHLORIDE 250 ML 10 ML IV (12:19)
[2024-04-09] MEDS: AZITHROMYCIN 500 MG in 0.9 % SODIUM CHLORIDE 250 ML 250 MG IV (12:19)
[2024-04-09] MEDS: CETIRIZINE HCL 10 MG TABLET PO (12:20)
[2024-04-09] MEDS: CHOLECALCIFEROL (VITAMIN D3) 125 MCG/5,000 UNIT TABLET PO (12:20)
[2024-04-10] VITALS (12 sets, daily range): BP systolic 145–169; BP diastolic 64–76; PULSE 47–59; TEMP 36.1–36.3; O2SAT 90–96
[2024-04-10] MEDS: ALBUTEROL SULFATE 200 PUFF/6.7 GM INHALER IH ×3 (03:52→11:22)
[2024-04-10] MEDS: HEPARIN SODIUM (PORCINE) 5,000 UNIT/ML VIAL 5000 UNIT SUBQ (05:49)
[2024-04-10 06:38] LABS: Basophils Percent Auto 0.3 % (0.2-2.0); Eosinophils Percent Auto 0.4 % (0.9-7.0); Hematocrit 33.3 % (36.0-48.0); Hemoglobin 10.4 g/dL (12.0-16.0); Immature Granulocytes Abs Auto 0.05 10^3/uL (0.00-0.03); Immature Granulocytes Pct Auto 0.5 % (0.0-0.5); Lymphocytes Absolute Auto 2.4 10^3/uL (1.2-3.8); Lymphocytes Percent Auto 24.5 % (20.5-60.0); Mean Corpuscular HGB Conc 31.2 g/dL (29.9-35.2); Mean Corpuscular Hemoglobin 27.2 pg (26.7-34.0); Mean Corpuscular Volume 86.9 fL (81.0-99.0); Mean Platelet Volume 10.8 fL (9.5-13.5); Monocytes Absolute Auto 0.8 10^3/uL (0.3-0.8); Monocytes Percent Auto 8.1 % (1.7-12.0); Neutrophils Absolute Auto 6.4 10^3/uL (1.4-6.5); Neutrophils Percent Auto 66.2 % (43.0-75.0); Platelet Count 221 10^3/uL (150-450); Red Blood Count 3.83 10^6/uL (4.20-5.40); Red Cell Distribution Width 14.6 % (11.0-15.0); White Blood Count 9.7 10^3/uL (4.0-11.0)
[2024-04-10 06:53] LABS: Alanine Aminotransferase 14 U/L (14-59); Albumin Globulin Ratio 0.9; Albumin Level 2.5 g/dL (3.4-5.0); Alkaline Phosphatase 39 U/L (46-116); Anion Gap 9.7; Aspartate Amino Transferase 12 U/L (15-37); BUN Creatinine Ratio 26.3; Bilirubin Total 0.4 mg/dL (0.2-1.0); Calcium 9.1 mg/dL (8.5-10.1); Carbon Dioxide 31.9 mmol/L (21.0-32.0); Chloride 105 mmol/L (98-107); Estimated GFR (African America 49 (>=60 mL/min/1.73m^2); Estimated GFR (Non-African Ame 41 (>=60 mL/min/1.73m^2); Globulin 2.8 g/dL; Glucose 80 mg/dL (74-106); Potassium 3.6 mmol/L (3.5-5.1); Sodium 143 mmol/L (136-145); Total Protein 5.3 g/dL (6.4-8.2)
[2024-04-10] MEDS: AZITHROMYCIN 500 MG in 0.9 % SODIUM CHLORIDE 250 ML 125 MG IV (08:06)
[2024-04-10] MEDS: FERROUS SULFATE 325 MG TABLET PO (08:07)
[2024-04-10] MEDS: BUSPIRONE HCL 15 MG TABLET PO (08:07)
[2024-04-10] MEDS: DULOXETINE HCL 60 MG CAPSULE.DR PO (08:07)
[2024-04-10] MEDS: LAMOTRIGINE 100 MG TABLET PO (08:07)
[2024-04-10] MEDS: CARVEDILOL 25 MG TABLET PO (08:07)
[2024-04-10] MEDS: FUROSEMIDE 40 MG/4 ML VIAL IVP (08:07)
[2024-04-10] MEDS: CHOLECALCIFEROL (VITAMIN D3) 125 MCG/5,000 UNIT TABLET PO (08:07)
[2024-04-10] MEDS: AMLODIPINE BESYLATE 5 MG TABLET 10 MG PO (08:07)
[2024-04-10] MEDS: DONEPEZIL HCL 10 MG TABLET PO (08:07)
[2024-04-10] MEDS: CETIRIZINE HCL 10 MG TABLET PO (08:07)
[2024-04-10] MEDS: LOSARTAN POTASSIUM 50 MG TABLET PO (08:09)
--- NOTE | 2024-04-10 08:23 | P.DS_ITS ---
DS: Providers Provider Date of admission: 04/08/24 14:38 Primary care physician: Shaikh Christina MD Attending physician on admission: Sheri Marcum Consults: 04/08/24 14:08 Consult to Cardiology Routine Reason for consultation: new onset CHF Has provider been notified: No Discharging clinician: Sheri Marcum DS: Diagnosis Discharge Diagnosis (1) Acute CHF: Qualifiers: Heart failure type: diastolic Qualified Code(s): I50.31 - Acute diastolic (congestive) heart failure (2) Community acquired bacterial pneumonia: (3) Tobacco abuse: (4) COPD (chronic obstructive pulmonary disease): Qualifiers: COPD type: unspecified COPD Qualified Code(s): J44.9 - Chronic obstructive pulmonary disease, unspecified (5) Primary hypertension: (6) Iron deficiency anemia: Qualifiers: Iron deficiency anemia type: unspecified iron deficiency Qualified Code(s): D50.9 - Iron deficiency anemia, unspecified (7) Morbid obesity with BMI of 60.0-69.9, adult: (8) COVID-19: (9) First degree heart block: (10) ERIN (acute kidney injury): DS: Summary Hospital Course Hospital Course: Patient is a 58 y.o white female with past medical history of Tobacco abuse, Hypertension, COPD, iron def anemia, morbid obesity, lower ext edema, Bipolar depression, autoimmune kidney disease, dementia, who has been to [facility] ER monthly for shortness of breath and has been treated for COPD exacerbations. On 04/08/24, she presented again with shortness of breath but was found to have bilateral pulmonary edema with increased bilateral lower ext edema with shortness of breath. Patient states that she was started on Bumex for lower ext swelling, She has no known history of heart failure. She does not weigh herself. ER findings with proBNP of 3427, trop 18.7, Cr 1.3, GFR 42, WBC's 7.5, Hb 10.7 and positive covid test; chest X-ray showed pulmonary vascular congestion. D- dimer 0.67. Patient is saturating 94% on room air, RR 25, pulse 50 and bp 180/64. Patient was given IV lasix 40mg x 1 in the ER and madden catheter was placed for monitor output. Good urine output overall. Cardiology increased her losartan 100mg daily, added amlodipine 10mg daily and lasix. yesterday she developed bradycardia with first degree heart block on telemetry this persisted off and on and happened only while she was sleeping last night. I have decreased the losartan to 50mg daily and this is what I will discharge her on. She will also be placed on a 14 days event monitor. She has close follow up with Cardiology clinic on Monday. She will also be placed on amlodipine 10mg daily. Her lower ext edema has improved and her short of breath, we will remove Madden catheter. She will resume home Bumex of 1mg daily along with low salt diet and fluid restriction of 2Liters. Echo was overall good but right sided pressures could not be assessed. Her CT scan showed : Small amount of airspace opacities in both lungs that likely represent pneumonia. I have her on azithromycin and Rocephin IV, but will discharge her home on Augmentin 875/125mg BID x 7 days with as needed Mucinex, she is encouraged to stop smoking. She may also have a component of sleep apnea given her size. She will need to be further evaluated as outpatient for this. Please keep follow up appointments. She may return to the ER with any worsening signs or symptoms. Status at Discharge Functional status at discharge: independent ambulation Overall status at discharge: patient is progressing back to baseline Time Spent with Patient Time attestation: Total time spent providing and/or coordinating discharge services: Time spent: greater than 30 minutes Exam Narrative Exam Narrative: General: Patient is alert, and oriented to person, place and time with normal affect, proper hygiene, morbid obesity Skin: no visible rashes, or ulcers Head: atraumatic, acephalic Eyes: PERRLA, no nystagmus present, conjunctiva clear, no scleral icterus Ears: normal gross auditory acuity Heart: Normal rate and rhythm, no murmurs/rubs/gallops Lungs: audible wheezes, no crackles Abdomen: Central obesity, Normal audible bowel sounds, no distension Musculoskeletal: mild swelling bilateral lower extremities Neuro: CN II-X grossly intact Constitutional Vital Signs, click to edit/add: Last Vital Signs Temp 97.4 F L 04/10/24 04:26 Pulse 50 L 04/10/24 08:00 Resp 17 04/10/24 04:26 BP 145/64 H 04/10/24 04:26 Pulse Ox 94 L 04/10/24 07:27 O2 Del Method Room Air 04/10/24 07:27 DS: Data Data Completed and Pending Labs on day of discharge: Labs from last 24 hours 04/10/24 06:17 WBC 9.7 RBC 3.83 L Hgb 10.4 L Hct 33.3 L MCV 86.9 MCH 27.2 MCHC 31.2 RDW 14.6 Plt Count 221 MPV 10.8 Neut % (Auto) 66.2 Lymph % (Auto) 24.5 [place] % (Auto) 8.1 Eos % (Auto) 0.4 L Baso % (Auto) 0.3 Neut # (Auto) 6.4 Lymph # (Auto) 2.4 [place] # (Auto) 0.8 Eos # (Auto) 0.0 Baso # (Auto) 0.0 Abs Immat Gran (auto) 0.05 H Imm/Tot Granulo (auto) 0.5 Sodium 143 Potassium 3.6 Chloride 105 Carbon Dioxide 31.9 Anion Gap 9.7 BUN 35.0 H Creatinine 1.33 H Est GFR ( Amer) 49 L Est GFR (Non-Af Amer) 41 L BUN/Creatinine Ratio 26.3 Glucose 80 Calcium 9.1 Total Bilirubin 0.4 AST 12 L ALT 14 Alkaline Phosphatase 39 L Total Protein 5.3 L Albumin 2.5 L Globulin 2.8 Albumin/Globulin Ratio 0.9 Discharge Plan Discharge Disposition: Home, Self-Care Condition: Fair Discharge Medications: New losartan 50 mg Tablet 50 mg PO QD 30 Days Qty: 30 0RF amlodipine 5 mg Tablet 10 mg PO QD 30 Days Qty: 30 0RF amoxicillin-pot clavulanate 875-125 mg tablet 1 tab PO BID 7 Days Qty: 14 0RF dextromethorphan-guaifenesin [Mucinex DM] 60-1,200 mg tablet extended release 12 hr 1 tab PO BID PRN (Reason: cold symptoms) 7 Days Qty: 14 0RF Continued albuterol sulfate 90 mcg/actuation HFA aerosol inhaler 2 puff INHALATION Q6H carvedilol 25 mg tablet 25 mg PO Q12H buspirone 15 mg tablet 15 mg PO BID donepezil 10 mg tablet 10 mg PO DAILY duloxetine 60 mg capsule,delayed release(DR/EC) 60 mg PO DAILY ferrous sulfate [FeroSul] 325 mg (65 mg iron) tablet 325 mg PO DAILY bumetanide 1 mg tablet 1 mg PO DAILY lamotrigine 100 mg tablet 100 mg PO DAILY cetirizine 10 mg tablet 10 mg PO .QD cholecalciferol (vitamin D3) 125 mcg (5,000 unit) tablet 5,000 unit PO .QD Activity: increase activity as tolerated Diet: low salt diet and other Diet Detail: fluid restriction to 2 LITERS Print Language: British Patient Instructions: Heart Failure (DC), COVID-19 and Chronic Health Conditions (DC) Forms: Portal Instructions Follow Up Appointments: [facility] cardiology MonApr 15 2pm. 1st floor of [facility] [phone] Information given regarding new PCP. Please call to schedule new patient appt YVAN Patient sent home with cardiac Event monitor Discharge location: Home
--- NOTE | 2024-04-10 10:36 | CM.NOTE ---
Rounds made with Dr. Marcum. Plan for discharge today. 14 day Event Monitor at discharge. Follow up with Cardiology and Family physician. Clarissa verbalizes understanding.
--- NOTE | 2024-04-11 12:56 | CM.DCFOLLOWU ---
Person spoke with:patient How are you feeling? well How is your pain? none Did you understand your discharge instructions? yes Do you have any questions about your discharge instructions? no Were you given any prescriptions at discharge? yes Were you able to get your prescriptions filled? yes Do you understand how to take your medications as ordered? yes Do you have any questions about your follow up appointment and do you plan to keep your follow up appointment? no questions, reviewed follow up. She has not picked a PCP yet still looking. She is aware of whipped topping mixer apt 04/15 Is there anything else that you would like to discuss?no Questions/Comments/Concerns/Other:none
== END 2024-04-10 14:52 | disposition home or self-care (01) | DRG 194 ==
LOC: ER 13:49 → MS 15:25
PROVIDERS: Admitting Provider Family Medicine; Emergency Provider Emergency Medicine; PCP Internal Medicine; Visit Provider Family Medicine
DX: I13.0 Hypertensive heart and chronic kidney disease with heart failure and stage 1 through stage 4 chronic kidney disease, or unspecified chronic kidney disease (principal); J15.9 Unspecified bacterial pneumonia; U07.1 COVID-19; Z68.44 Body mass index [BMI] 60.0-69.9, adult; N17.9 Acute kidney failure, unspecified; I50.31 Acute diastolic (congestive) heart failure; D50.9 Iron deficiency anemia, unspecified; E66.01 Morbid (severe) obesity due to excess calories; F03.90 Unspecified dementia, unspecified severity, without behavioral disturbance, psychotic disturbance, mood disturbance, and anxiety; F17.200 Nicotine dependence, unspecified, uncomplicated; F31.9 Bipolar disorder, unspecified; G47.33 Obstructive sleep apnea (adult) (pediatric); I44.0 Atrioventricular block, first degree; J43.9 Emphysema, unspecified; N18.31 Chronic kidney disease, stage 3a; R00.0 Tachycardia, unspecified; Z79.899 Other long term (current) drug therapy; Z88.1 Allergy status to other antibiotic agents; Z88.5 Allergy status to narcotic agent; Z88.8 Allergy status to other drugs, medicaments and biological substances
CPT/HCPCS: 36415; 51702; 71045; 71250; 80048; 80053; 80061; 83036; 83880; 84443; 84484; 85025; 85378; 87804; 87811; 93005; 93246; 93306; 94640; 94667; 94668; 94761; 96374; 96375; 99285; 99406; J0456; J1644; J1940; J2919

== ENCOUNTER 2024-05-20 10:54 | Outpatient (OUT) | payer OTHER, SELFPAY ==
--- OUTSIDE RECORDS SUMMARY | 2024-05-20 11:07 | XMS_ITS | CCD ---
Author Organization [facility] Care Team Providers Care Liquid Compounder Name Role Phone Tanja, Leda Unavailable Unavailable Unavailable Unavailable Unavailable Unavailable Unavailable Unavailable Tanja, Leda Unavailable Unavailable Tanja, Leda Unavailable Unavailable Unavailable Unavailable Unavailable Heath Kirkpatrick Attending Gisselle vailable Heath Kirkpatrick Referring Gisselle vailable Rumschlag, Mignon Primary Care Provider TIM SHARMA Referring Unavailab le RUMSCHLAG, MIGNON Primary Care Unavailable TIM SHARMA Referring Unavailab le RUMSCHLAG, MINGON Primary Care Unavailable ALLAN SHARMAMPSAGER Referring Unavailab le RUMSCHLAG, MIGNON Primary Care Unavailable Tanja CYANIDE POT HARDENER, Leda Unavailable NICOLE, DR VU Novoa Attending Unavailable NICOLE, DR VU Novoa Admitting Unavailable [facility] Primary Care Unavailable LIYAH, DR EBEN Couch Consulting Unavailblanca KAT, DR FRIEDA Tobar Consulting Unavailblanca e JULISSA, DR LO Hdz Consulting Unavailable NICOLE, DR VU Novoa Consulting Unavailable LATONIA, DR KHAN Consulting Unavailable NANCI BEEBE Attending Unavailable NANCI BEEBE Admitting Unavailable JULISSA, DR LO Hdz Consulting Unavailable [facility] Primary Care Unavailable NANCI BEEBE Consulting Unavailable QUYNH ARCHER Attending Unavailable QUYNH ARCHER Admitting Unavailable [facility] Primary Care Unavailable QUYNH ARCHER Consulting Unavailable NATASHA RANDLE. Admitting Unavailable NATASHA RANDLE. Attending Unavailable ANTIONE BRITO Referring Unavailable PCP, NOT IN SYSTEM Primary Care Unavailable IRVING FLORES Consulting Unavailable ALTOROK, NEZAM SMITH Consulting Unavailab le AL-KATHLEEN, WANDA T Attending Unavailable AL-KATHLEEN, WANDA T Referring Unavailable SERA, SHAWN E Primary Care Unavailable ALTOROK, NEZAM SMITH Referring Unavailab le ZAMORA, SHAWN E Primary Care Unavailable ALTOROK, NEZAM SMITH Referring Unavailab le SERA, SHAWN E Primary Care Unavailable PCP, NOT IN SYSTEM Primary Care Unavailable JOSE TORRES Attending Unavailable DRE PRIETO Admitting Unavailable VIOLETA ELY Consulting Unavailable FRAN WILD Consulting Unavailable MARCO TORRESALIBetty M Attending Unavailable MARCO TORRESALIBetty M Referring Unavailable PCP, NOT IN SYSTEM Primary Care Unavailable SERA, SHAWN E Referring Unavailable ZAMORA, SHAWN E Primary Care Unavailable ZAMORA, SHAWN E Referring Unavailable ZAMORA, SHAWN E Primary Care Unavailable AL-KATHLEEN, WANDA Referring Unavailable ZAMORA, SHAWN E Primary Care Unavailable HANANE CLEANING A Referring Unavailable ZAMORA, SHAWN E Primary Care Unavailable SHAIKH BOOKER Attending Unavailable SHAIKH BOOKER Attending Unavailable ERICA POMPA Attending UnavailShawn Abdi MD Primary Care Provider Vu Rivera MD Primary Care Provider [phone] Erica Pompa NP Unavailable [phone] ALTOROK, NEZAM I Attending Unavailable RASHAAD BLACKMAN Attending Unavailab le ALTOROK, NEZAM I Referring Unavailable ALTOROK, NEZAM I Referring Unavailable Allergies Allergy Classification Reported Allergen(s) Allergy Type Date of Onset Reaction(s) Facility (20 sources) codeine; Translations: [Codeine] Drug Allergy 01-19-20 12 Nausea And Vomiting, Vomiting, GI intolerance [facility] (4 sources) pregabalin; Translations: [Lyrica] Drug Allergy [facility] (4 sources) sulfamethoxazole / trimethoprim; Translations: [Bactrim] Drug Allergy [facility] (4 sources) -No Environmental Allergies; Translations: [-No Environmental Allergies] Allergy to substance (disorder) [facility] (2 sources) -No Known Food Allergies Allergy to substance (disorder) [facility] (3 sources) NSAIDs Propensity to adverse reactions to drug 02-24-20 15 Other (See Comments) [place] (15 sources) pregabalin; Translations: [PREGABALIN] Drug Allergy 01-19-20 12 Other (See Comments), Unknown [place] (15 sources) Sulfamethoxazole / Trimethoprim; Translations: [SULFAMETHOXAZOLE-T RIMETHOPRIM] Drug Allergy 11-15-19 16 Hives [place] (1 source) pregabalin Drug Allergy 12-31-19 22 [facility] (1 source) Sulfamethoxazole / Trimethoprim Drug Allergy 04-15-20 22 [facility] Medications Current Medications Medication Drug Class(es) Dates Sig (Normalized) Sig (Original) acetaminophen 325 mg oral tablet (3 sources) take 2 tablets by mouth every four hours as needed for pain acetaminophen (TYLENOL) 325 MG tablet Take 650 mg by mouth every 4 hours as needed for Pain 0 Active [id number] 200 actuat albuterol 0.09 mg/actuat metered dose inhaler (10 sources) beta2-Adrenergic Agonist Start: 01-31-2024 take 2 puff(s) by inhalation every four hours for wheezing albuterol HFA 90 mcg/act inhaler Indications: Chronic obstructive pulmonary disease with acute exacerbation ([facility]/HCC) Inhale 2 puffs every 4 (four) hours if needed for wheezing or shortness of breath 18 g 2 01/31/2024 Active Start: 07-19-2018 Ventolin HFA 1 08 (90 Base)MCG/ACT Inhalation Aerosol, solution 07/19/2018 Provider: Start: 05-19-2018 End: 05-19-2018 VENTOLIN HFA 90MCG/ACTUAT CO SC 05/19/2018 - 05/19/2018 Provider: take 2 [...] 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 ([facility]-HCC) , Hypovitaminosis D Take 1 tablet (5,000 [...] - 03/07/2018 Provider: take 1 capsule by [facility] once daily duloxetine 30 mg oral capsule,delayed release(DR/EC) take 1 capsule (30 mg) by oral route once daily ergocalciferol 1.25 mg oral capsule (4 sources) Provitamin D2 Compound Start: 07-19-2018 Ergocalciferol [id number] Oral Capsule, conventional 07/19/2018 Provider: Start: 09-14-2017 take 1 capsule by [facility] every week Vitamin D2 50,000 unit [...] 07/12/2018 - 07/20/2018 Provider: Leda Agrawal CNP Wquefnwochp-Pviroeoqg-Vnbbbw (Trelegy Ellipta) 200-62.5-25 MCG/ACT aerosol powder (4 sources) Start: 11-02-2023 take 1 puff(s) by inhalation once daily Cqfhnftnhkb-Ewvcnchmm-Uonjzo (Trelegy Ellipta) 200-62.5-25 MCG/ACT aerosol powder Indications: Chronic obstructive pulmonary disease, unspecified COPD type (CMS/HCC) Inhale 1 puff Daily 28 each 3 11/02/2023 Active gabapentin 600 mg oral table t (7 sources) Anti- epile ptic Agent Start: 07-19-2018 Gabapentin 600MG Oral Tablet 07/19/2018 Provider: Start: 05-19-2018 End: 05-19-2018 GABAPENTIN 300 mg MISC 05/19 - 05/19/2018 Provider: Start: 02-13-2018 End: 02-13-2018 Gabapentin 600MG OR TABS - 02/13/2018 Provider: Start: 09-26-2017 take 1 capsule by mo uth three times daily gabapentin 300 mg oral [...] 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 ([facility]-HCC) Take 2.5 tablets (50 mg total) by [...] Start: 05-19-2018 End: 05-19-2018 TRAMADOL 50 mg [facility] 05/19/19 - 05/19/2018 Provider: Start: 11-14-2017 take 1 tablet by jayson th every eight hours as needed for pain tramadol 50 mg oral tablet 11/14/2017 take 1 tablet (50 mg) by oral route every 8 hours as needed for chronic back pain / osteoarthritis (M51.36/M19.90) Start: 11-14-2017 End: 11-14-2017 TRAMADOL 50 mg [facility] 11/15/19 - 11/14/2017 Provider: take 1 tablet by jayson three times daily as needed tramadol 50 [...] Start: 02-13-2018 End: 02-13-2018 CLINDAMYCIN HCL 300MG [facility] 02/13/2018 - 02/13/2018 Provider: Start: 02-13-2018 End: [...] 10-17-2023 Episodic Other aftercare (4 sources) Other [facility] (current) drug therapy; Translations: [OTH [facility] CURRENT DRUG THERAPY] Onset: 2 Episodic Other aftercare (3 sources) nursing home (current) use of systemic steroids; Translations: [nursing home (current) use of systemic steroids] Onset: 4 [...] Test Name Value Interpretation Reference Range Facility 36on 03-07-2024 36 Called patient to reschedule their appointment scheduled for 03/[address] Daniels Result: left voicemail to reschedule Normal [facility] BASIC METABOLIC PANLon 01-21 Anion gap [Moles/Vol] 9 mmol/L Normal 5-15 [facility] Comment on above: Performed By: #### C EDEL POOLE, 03304-3 #### [facility] ([id number]) [address] [place] [address] 91837 Calcium [Mass/Vol] 9.5 mg/dL Normal 8.5-10.5 [facility] Comment on above: Performed By: #### C EDEL POOLE, 35501-7 #### [facility] ([id number]) [address] [place] [address] 34737 Chloride [Moles/Vol] 101 mmol/L Normal 98-109 [facility] Comment on above: Performed By: #### C BCA CMP, 25100-4 #### [facility] ([id number]) [address] [place] [address] 67537 CO2 [Moles/Vol] 31 mmol/L Normal 22-32 [facility] Comment on above: Performed By: #### C BCA CMP, 33271-1 #### [facility] ([id number]) [address] [place] [address] 19734 Creatinine [Mass/Vol] 1.63 mg/dL High 0.40-1.00 [facility] Comment on above: Result Comment: METH OD TRACEABLE TO IDMS STANDARD Performed By: #### C EDEL POOLE, 03632-9 #### [facility] ([id number]) [address] [place] [address] 32705 GFR/1.73 sq M.predicted among non-blacks MDRD (S/P/Bld) [Vol rate/Area] 36 mL/min/{1.73_m2} Low >59 [facility] Comment on above: Result Comment: Reported eGFR is based on the CKD-EPI 2020 equation that does not use a race coefficient. Performed By: #### Shahla POOLE CMP, 94802-7 #### [facility] ([id number]) [address] [place] [address] 32605 Glucose [Mass/Vol] 84 mg/dL Normal 65-99 [facility] Comment on above: Performed By: #### Shahla POOLE CMP, 61189-6 #### [facility] ([id number]) [address] [place] [address] 51710 Potassium [Moles/Vol] 4.3 mmol/L Normal 3.5-5.0 [facility] Comment on above: Performed By: #### Shahla POOLE CMP, 71316-6 #### [facility] ([id number]) [address] [place] [address] 80771 Sodium [Moles/Vol] 141 mmol/L Normal 134-146 [facility] Comment on above: Performed By: #### Shahla POOLE CMP, 50434-6 #### [facility] ([id number]) [address] [place] [address] 27770 Urea nitrogen [Mass/Vol] 34 mg/dL High 5-23 [facility] Comment on above: Performed By: #### Shahla POOLE CMP, 07472-8 #### [facility] ([id number]) [address] [place] [address] 36249 BASIC METABOLIC PANLon 01-11 Anion gap [Moles/Vol] 12 mmol/L Normal 5-15 [facility] Comment on above: Performed By: #### 8 9579-7 #### [facility] ([id number]) [address] [place] [address] 12690 Calcium [Mass/Vol] 9.4 mg/dL Normal 8.5-10.5 [facility] Comment on above: Performed By: #### 8 9579-7 #### [facility] ([id number]) [address] [place] [address] 50780 Chloride [Moles/Vol] 104 mmol/L Normal 98-109 [facility] Comment on above: Performed By: #### 8 9579-7 #### [facility] ([id number]) [address] [place] [address] 57383 CO2 [Moles/Vol] 28 mmol/L Normal 22-32 [facility] Comment on above: Performed By: #### 8 9579-7 #### [facility] ([id number]) [address] [place] [address] 28947 Creatinine [Mass/Vol] 1.22 mg/dL High 0.40-1.00 [facility] Comment on above: Result Comment: METH OD TRACEABLE TO IDMS STANDARD Performed By: #### 8 9579-7 #### [facility] ([id number]) [address] [place] [address] 40921 GFR/1.73 sq M.predicted among non-blacks MDRD (S/P/Bld) [Vol rate/Area] 51 mL/min/{1.73_m2} Low >59 [facility] Comment on above: Result Comment: Reported eGFR is based on the CKD-EPI 2020 equation that does not use a race coefficient. Performed By: #### 8 9579-7 #### [facility] ([id number]) [address] [place] [address] 91800 Glucose [Mass/Vol] 100 mg/dL High 65-99 [facility] Comment on above: Performed By: #### 8 9579-7 #### [facility] ([id number]) [address] [place] [address] 70026 Potassium [Moles/Vol] 3.8 mmol/L Normal 3.5-5.0 [facility] Comment on above: Performed By: #### 8 9579-7 #### [facility] ([id number]) [address] [place] [address] 71044 Sodium [Moles/Vol] 144 mmol/L Normal 134-146 [facility] Comment on above: Performed By: #### 8 9579-7 #### [facility] ([id number]) [address] [place] [address] 47190 Urea nitrogen [Mass/Vol] 17 mg/dL Normal 5-23 [facility] Comment on above: Performed By: #### 8 9579-7 #### [facility] ([id number]) [address] [place] [address] 68795 COMPLETE BLOOD COUNTon 01-11 Erythrocyte distribution width (RBC) [Ratio] 16.7 % High 11.5-15.0 [facility] Comment on above: Performed By: #### 8 9579-7 #### [facility] ([id number]) [address] [place] [address] 43820 Hematocrit (Bld) [Volume fraction] 33.6 % Low 35-47 [facility] Comment on above: Performed By: #### 8 9579-7 #### [facility] ([id number]) [address] [place] [address] 20746 Hemoglobin (Bld) [Mass/Vol] 11.2 g/dL Low 11.7-15.5 [facility] Comment on above: Performed By: #### 8 9579-7 #### [facility] ([id number]) [address] [place] [address] 65491 MCH (RBC) [Entitic mass] 28.8 pg Normal 27-34 [facility] Comment on above: Performed By: #### 8 9579-7 #### [facility] ([id number]) [address] [place] [address] 75875 MCHC (RBC) [Mass/Vol] 33.3 g/dL Normal 32-36 [facility] Comment on above: Performed By: #### 8 9579-7 #### [facility] ([id number]) [address] [place] [address] 88806 MCV (RBC) [Entitic vol] 87 fL Normal 80-100 [facility] Comment on above: Performed By: #### 8 9579-7 #### [facility] ([id number]) [address] [place] [address] 11917 Platelet mean volume (Bld) [Entitic vol] 9.7 fL Normal 7-12 [facility] Comment on above: Performed By: #### 8 9579-7 #### [facility] ([id number]) [address] [place] [address] 58970 Platelets (Bld) [#/Vol] 268 10*3/uL Normal 150-450 [facility] Comment on above: Performed By: #### 8 9579-7 #### [facility] ([id number]) [address] [place] [address] 55465 RBC COUNT 3.88 X10E12/L Normal 3.80-5.20 [facility] Comment on above: Performed By: #### 8 9579-7 #### [facility] ([id number]) [address] [place] [address] 97027 WBC (Bld) [#/Vol] 8.8 10*3/uL Normal 4.0-11.0 [facility] Comment on above: Performed By: #### 8 9579-7 #### [facility] ([id number]) [address] [place] [address] 43623 Creatinine (U) [Mass/Vol]on 01-12-2024 URINE CREATININE,RDM 107.95 mg/dL Normal [facility] Comment on above: Performed By: #### C VIRGILIO [facility], #### [facility] ([id number]) [address] [place] [address] 46281 HBV core Ab IA Qlon 01-12-20 ANTI HBc Negative Normal NEG [facility] Comment on above: Performed By: #### Shahla POOLE CMP, #### [facility] ([id number]) [address] [place] [address] 44225 HBV surface Ab IA Qnon 01-11 Anti HBs quant. <8.00 Normal [facility] Comment on above: Result Comment: Vacc inated: >=12mIU/mL, Positive (Immune) Unvaccinated: <8mIU/mL, Negative (Not Immune) 8-11.99 mIU/mL: Indeterminate, (Considered Not Immune) Performed By: #### C EDEL POOLE, #### [facility] ([id number]) [address] [place] [address] 56101 HBV surface Ag IA Qlon 01-11 HEPATITIS B SURF AG Negative Normal NEG [facility] Comment on above: Performed By: #### Shahla POOLE CMP, #### [facility] ([id number]) [address] [place] [address] 44666 MAGNESIUMon 01-12-2024 Magnesium [Mass/Vol] 1.6 mg/dL Low 1.8-2.6 [facility] Comment on above: Performed By: #### 8 9579-7 #### [facility] ([id number]) [address] [place] [address] 67109 PHOSPHORUSon 01-12-2024 Phosphate [Mass/Vol] 3.6 mg/dL Normal 2.4-4.9 [facility] Comment on above: Performed By: #### 8 9579-7 #### [facility] ([id number]) [address] [place] [address] 46148 PROTEIN CREAT RATIOon 2023 RANDOM URINE PROTEIN 4520 mg/L High <120 [facility] Comment on above: Performed By: #### C VIRGILIO, CMP, 10038-0 #### [facility] ([id number]) [address] [place] [address] 18766 U/PRO/EXPERIMENTAL WORKER RATIO CALC 4.15 High <0.2 [facility] Comment on above: Result Comment: Neph rotic Syndrome is associated with ratios >3.5 Performed By: #### C VIRGILIO, CMP, 53642-2 #### [facility] ([id number]) [address] [place] [address] 00009 URINE CREATININE,RDM 108.96 mg/dL Normal [facility] Comment on above: Performed By: #### C BCA, CMP, 22467-0 #### [facility] ([id number]) [address] [place] [address] 64507 Parathyrin.intact [Mass/Vol] on 01-12-2024 PTH INTACT 69 pg/mL Normal 12-88 [facility] Comment on above: Performed By: #### C BCA, CMP, 46302-3 #### [facility] ([id number]) [address] [place] [address] 00154 Protein (U) [Mass/Vol]on RANDOM URINE PROTEIN 4560 mg/L High <120 [facility] Comment on above: Performed By: #### C BCA, CMP, #### [facility] ([id number]) [address] [place] [address] [place] [address] URINALYSISon 01-12-2024 Bilirubin Ql (U) Negative Normal NEG [facility] Comment on above: Performed By: #### C VIRGILIO, CMP, #### [facility] ([id number]) [address] [place] [address] [place] [address] BLOOD/HGB Small Abnormal NEG [facility] Comment on above: Performed By: #### C BCA, CMP, #### [facility] ([id number]) [address] [place] [address] [place] [address] Color (U) YELLOW Normal YELLOW [facility] Comment on above: Performed By: #### C VIRGILIO, CMP, #### [facility] ([id number]) [address] [place] [address] [place] [address] Glucose Ql (U) Negative Normal NEG [facility] Comment on above: Performed By: #### C BCA, CMP, #### [facility] ([id number]) [address] [place] [address] [place] [address] Hyaline casts LM Ql (Urine sed) 1 /lpf Normal 0-2 [facility] Comment on above: Performed By: #### C BCA, CMP, #### [facility] ([id number]) [address] [place] [address] [place] [address] Ketones Ql (U) Negative Normal NEG [facility] Comment on above: Performed By: #### C BCA, CMP, #### [facility] ([id number]) [address] [place] [address] [place] [address] Leukocyte esterase Test strip Ql (U) Negative Normal NEG [facility] Comment on above: Performed By: #### C BCA, CMP, #### [facility] ([id number]) [address] [place] [address] 57377 MUCOUS PRESENT Abnormal NONE [facility] Comment on above: Performed By: #### C VIRGILIO [facility], 16313-7 #### [facility] ([id number]) [address] [place] [address] 09332 Nitrite Ql (U) Negative Normal NEG [facility] Comment on above: Performed By: #### C VIRGILIO [facility], #### [facility] ([id number]) [address] [place] [address] 21818 pH (U) 6.5 [pH] Normal 5.0-8.5 [facility] Comment on above: Performed By: #### C VIRGILIO [facility], #### [facility] ([id number]) [address] [place] [address] 22076 Protein Ql (U) 300 mg/dL Abnormal NEG [facility] Comment on above: Performed By: #### C VIRGILIO [facility], #### [facility] ([id number]) [address] [place] [address] 82086 R.B.CELLS 0 /hpf Normal 0-5 [facility] Comment on above: Performed By: #### C VIRGILIO [facility], #### [facility] ([id number]) [address] [place] [address] 42775 Specific gravity (U) [Rel density] 1.015 Normal 1.003-1.035 [facility] Comment on above: Performed By: #### C VIRGILIO [facility], 55953-7 #### [facility] ([id number]) [address] [place] [address] 97827 SQUAMOUS EPITHELIUM 1 /hpf Normal 0-5 [facility] Comment on above: Performed By: #### C VIRGILIO [facility], 74250-2 #### [facility] ([id number]) [address] [place] [address] 57756 TURBIDITY CLEAR Normal CLEAR [facility] Comment on above: Performed By: #### C VIRGILIO [facility], 59460-6 #### [facility] ([id number]) [address] [place] [address] 65893 Urobilinogen (U) [Mass/Vol] mg/dL Normal <1.1 [facility] Comment on above: Performed By: #### Shahla POOLE [facility], 50728-9 #### [facility] ([id number]) [address] [place] [address] 52796 W.B.CELLS 2 /hpf Normal 0-5 [facility] Comment on above: Performed By: #### Shahla POOLE [facility], 76080-8 #### [facility] ([id number]) [address] [place] [address] 05683 Vitamin D+Metabolites [Mass/ Vol]on 01-12-2024 VITAMIN D 25 HYD TOT 23.5 ng/mL Low 30-100 [facility] Comment on above: Result Comment: Vitamin D status 25 [place] Vitamin D Deficiency <20 ng/mL Insufficiency 20-29 ng/mL Sufficiency 30-100 ng/mL Toxicity >100 ng/mL NOTE: A pediatric reference range has not been established by the foot cutter of this kit. The [place] [employer] recommends a Vitamin D level of = or >20ng/mL in infants and children. Performed By: #### Shahla POOLE [facility], 88904-0 #### [facility] ([id number]) [address] [place] [address] 18801 COMPLETE BLOOD COUNTon 12-18 Erythrocyte distribution width (RBC) [Ratio] 16.7 % High 11.5-15.0 [facility] Comment on above: Performed By: #### Shahla POOLE CMP, , 2776-04, 1987-08 #### [facility] ([id number]) [address], [address] [place] [address] Hematocrit (Bld) [Volume fraction] 30.1 % Low 35-47 [facility] Comment on above: Performed By: #### Shahla POOLE, CMP, , 2776-04, 1987-08 #### [facility] ([id number]) [address], [address] [place] [address] Hemoglobin (Bld) [Mass/Vol] 9.6 g/dL Low 11.7-15.5 [facility] Comment on above: Performed By: #### Shahla POOLE CMP, , 2776-04, 1987-08 #### [facility] ([id number]) [address], [address] [place] [address] MCH (RBC) [Entitic mass] 27.3 pg Normal 27-34 [facility] Comment on above: Performed By: #### Shahla POOLE, CMP, , 2776-04, 1987-08 #### [facility] ([id number]) [address], [address] [place] [address] MCHC (RBC) [Mass/Vol] 32.0 g/dL Normal 32-36 [facility] Comment on above: Performed By: #### Shahla BCA, CMP, , 2776-04, 1987-08 #### [facility] ([id number]) [address], [address] [place] [address] MCV (RBC) [Entitic vol] 86 fL Normal 80-100 [facility] Comment on above: Performed By: #### Shahla BCA, CMP, , 2776-04, 1987-08 #### [facility] ([id number]) [address] [place] [address] Platelet mean volume (Bld) [Entitic vol] 9.1 fL Normal 7-12 [facility] Comment on above: Performed By: #### C BCA, CMP, , 2776-04, 1987-08 #### [facility] ([id number]) [address], [address] [place] [address] Platelets (Bld) [#/Vol] 361 10*3/uL Normal 150-450 [facility] Comment on above: Performed By: #### C BCA, CMP, , 2776-04, 1987-08 #### [facility] ([id number]) [address], [address] [place] [address] RBC COUNT 3.52 X10E12/L Low 3.80-5.20 [facility] Comment on above: Performed By: #### C BCA, CMP, , 2776-04, 1987-08 #### [facility] ([id number]) [address], [address] [place] [address] WBC (Bld) [#/Vol] 8.2 10*3/uL Normal 4.0-11.0 [facility] Comment on above: Performed By: #### C BCA, CMP, , 2776-04, 1987-08 #### [facility] ([id number]) [address] [place] [address] COMPREHENSIVE METABOLIC PANE Phu 12-19-2023 Albumin [Mass/Vol] 3.4 g/dL Normal 3.2-5.3 [facility] Comment on above: Performed By: #### C BCA, CMP, , 2776-04, 1987-08 #### [facility] ([id number]) [address], [address] [place] [address] ALP [Catalytic activity/Vol] 60 U/L Normal 39-130 [facility] Comment on above: Performed By: #### C BCA, CMP, , 2776-04, 1987-08 #### [facility] ([id number]) [address], [address] [place] [address] ALT [Catalytic activity/Vol] 12 U/L Normal 0-31 [facility] Comment on above: Performed By: #### C BCA, CMP, , 2776-04, 1987-08 #### [facility] ([id number]) [address], [address] [place] [address] Anion gap [Moles/Vol] 9 mmol/L Normal 5-15 [facility] Comment on above: Performed By: #### C BCA, CMP, , 2776-04, 1987-08 #### [facility] ([id number]) [address], [address] [place] [address] AST [Catalytic activity/Vol] 13 U/L Normal 0-41 [facility] Comment on above: Performed By: #### C BCA, CMP, , 2776-04, 1987-08 #### [facility] ([id number]) [address] [place] [address] Bilirubin [Mass/Vol] 0.4 mg/dL Normal 0.3-1.2 [facility] Comment on above: Performed By: #### C BCA, CMP, , 2776-04, 1987-08 #### [facility] ([id number]) [address], [address] [place] [address] Calcium [Mass/Vol] 9.5 mg/dL Normal 8.5-10.5 [facility] Comment on above: Performed By: #### C BCA, CMP, , 2776-04, 1987-08 #### [facility] ([id number]) [address], [address] [place] [address] Chloride [Moles/Vol] 105 mmol/L Normal 98-109 [facility] Comment on above: Performed By: #### C EDEL POOLE, , 2776-04, 1987-08 #### [facility] ([id number]) [address], [address] [place] [address] CO2 [Moles/Vol] 28 mmol/L Normal 22-32 [facility] Comment on above: Performed By: #### C VIRGILIO CMP, , 2776-04, 1987-08 #### [facility] ([id number]) [address], [address] [place] [address] Creatinine [Mass/Vol] 1.23 mg/dL High 0.40-1.00 [facility] Comment on above: Result Comment: METH OD TRACEABLE TO IDMS STANDARD Performed By: #### C EDEL POOLE, , 2776-04, 1987-08 #### [facility] ([id number]) [address], [address] [place] [address] GFR/1.73 sq M.predicted among non-blacks MDRD (S/P/Bld) [Vol rate/Area] 51 mL/min/{1.73_m2} Low >59 [facility] Comment on above: Result Comment: Reported eGFR is based on the CKD-EPI 2020 equation that does not use a race coefficient. Performed By: #### C EDEL POOLE, , 2776-04, 1987-08 #### [facility] ([id number]) [address], [address] [place] [address] Glucose [Mass/Vol] 89 mg/dL Normal 65-99 [facility] Comment on above: Performed By: #### C VIRGILIO CMP, , 2776-04, 1987-08 #### [facility] ([id number]) [address], [address] [place] [address] Potassium [Moles/Vol] 4.9 mmol/L Normal 3.5-5.0 [facility] Comment on above: Performed By: #### C VIRGILIO CMP, , 2776-04, 1987-08 #### [facility] ([id number]) [address], [address] [place] [address] Protein [Mass/Vol] 6.0 g/dL Normal 6.0-8.0 [facility] Comment on above: Performed By: #### C BCA, CMP, , 2776-04, 1987-08 #### [facility] ([id number]) [address], [address] [place] [address] Sodium [Moles/Vol] 142 mmol/L Normal 134-146 [facility] Comment on above: Performed By: #### C VIRGILIO, CMP, , 2776-04, 1987-08 #### [facility] ([id number]) [address], [address] [place] [address] Urea nitrogen [Mass/Vol] 21 mg/dL Normal 5-23 [facility] Comment on above: Performed By: #### C VIRGILIO, CMP, , 2776-04, 1987-08 #### [facility] ([id number]) [address], [address] [place] [address] CRP [Mass/Vol]on 12-19-2023 C REACTIVE PROTEIN 0.8 mg/dL High 0.000-0.744 [facility] Comment on above: Performed By: #### C BCA, CMP, , 2776-04, 1987-08 #### [facility] ([id number]) [address], [address] [place] [address] ESR Photometric method (Bld) [Velocity]on 12-19-2023 ESR, ERYTHROCYTE SEDIMENTATION RATE 67 mm/h High 0-30 [facility] Comment on above: Performed By: #### C BCA, CMP, , 2776-04, 1987-08 #### [facility] ([id number]) [facility], [facility] [address] [place] [address] Follow-Upon 12-19-2023 Follow-Up [id number] DovTobias 1965 F Date Provider Department Center 12/19/2023 215-ELIZABETH HI I [facility] No family history on file Level of Service:05941 CO OFFICE/OUTPATIENT ESTABLISHED LOW MDM 20 MIN (GC) Reason for Visit and Comments: Follow-up [[id number]] Normal [facility] Neutrophil cytoplasmic Ab pa selvin IF (S)on 12-19-2023 c-ANCA Negative Normal Negative [facility] Comment on above: Performed By: #### C VIRGILIO CMP, 99873-6, 2776-04, 1987-08 #### [facility] ([id number]) [address] [place] [address], [address] [address] p-ANCA Positive Abnormal Negative [facility] Comment on above: Result Comment: NOTE Positive for pANCA pattern by immunofluorescence. Suggest further testing for anti-myeloperoxidase (anti-MPO) antibodies, if clinically indicated. ADDITIONAL INFORMATION This test was developed and its performance characteristics determined by [facility] in a manner consistent with CLIA requirements. This test has not been cleared or approved by the U.S. Food and Drug Administration. Test Performed by: [facility] [address] [place] [address] Remote Sensing Analyst: Ledy Son Ph.D.; CLIA# [id number] Performed By: #### C VIRGILIO, CMP, 83825-9, 2776-04, 1987-08 #### [facility] ([id number]) [address] [place] [address], [facility] [address] [place] [address] CBC AND AUTO DIFFon 11-07-19 24 ABSOLUTE BASOPHIL 0.0 X10E9/L Normal 0.0-0.2 [facility] Comment on above: Performed By: #### C BCA, CMP, , 2776-04, 1987-08 #### [facility] ([id number]) [address], [address] [place] [address] ABSOLUTE NEUTROPHIL 12.2 X10E9/L High 1.5-6.6 [facility] Comment on above: Performed By: #### C BCA, CMP, , 2776-04, 1987-08 #### [facility] ([id number]) [address], [address] [place] [address] Basophils/100 WBC (Bld) 0.2 % Normal [facility] Comment on above: Performed By: #### C BCA, CMP, , 2776-04, 1987-08 #### [facility] ([id number]) [address] [place] [address] Eosinophils (Bld) [#/Vol] 0.0 10*3/uL Normal 0.0-0.4 [facility] Comment on above: Performed By: #### C BCA, CMP, , 2776-04, 1987-08 #### [facility] ([id number]) [address], [address] [place] [address] Eosinophils/100 WBC (Bld) 0.0 % Normal [facility] Comment on above: Performed By: #### C BCA, CMP, , 2776-04, 1987-08 #### [facility] ([id number]) [address], [address] [place] [address] Erythrocyte distribution width (RBC) [Ratio] 15.6 % High 11.5-15.0 [facility] Comment on above: Performed By: #### C BCA, CMP, , 2776-04, 1987-08 #### [facility] ([id number]) [address], [address] [place] [address] Hematocrit (Bld) [Volume fraction] 32.0 % Low 35-47 [facility] Comment on above: Performed By: #### C EDEL POOLE, , 2776-04, 1987-08 #### [facility] ([id number]) [address], [address] [place] [address] Hemoglobin (Bld) [Mass/Vol] 10.4 g/dL Low 11.7-15.5 [facility] Comment on above: Performed By: #### C VIRGILIO CMP, , 2776-04, 1987-08 #### [facility] ([id number]) [address] [place] [address] Lymphocytes (Bld) [#/Vol] 0.3 10*3/uL Low 1.0-3.5 [facility] Comment on above: Performed By: #### Shahla POOLE CMP, , 2776-04, 1987-08 #### [facility] ([id number]) [address] [place] [address] Lymphocytes/100 WBC (Bld) 2.6 % Normal [facility] Comment on above: Performed By: #### Shahla POOLE CMP, , 2776-04, 1987-08 #### [facility] ([id number]) [address], [address] [place] [address] MCH (RBC) [Entitic mass] 27.6 pg Normal 27-34 [facility] Comment on above: Performed By: #### Shahla POOLE CMP, , 2776-04, 1987-08 #### [facility] ([id number]) [address], [address] [place] [address] MCHC (RBC) [Mass/Vol] 32.4 g/dL Normal 32-36 [facility] Comment on above: Performed By: #### C VIRGILIO, CMP, , 2776-04, 1987-08 #### [facility] ([id number]) [address], [address] [place] [address] MCV (RBC) [Entitic vol] 85 fL Normal 80-100 [facility] Comment on above: Performed By: #### Shahla POOEL, CMP, , 2776-04, 1987-08 #### [facility] ([id number]) [address], [address] [place] [address] Monocytes (Bld) [#/Vol] 0.2 10*3/uL Normal 0-0.9 [facility] Comment on above: Performed By: #### Shahla POOLE, CMP, , 2776-04, 1987-08 #### [facility] ([id number]) [address] [place] [address] Monocytes/100 WBC (Bld) 1.8 % Normal [facility] Comment on above: Performed By: #### Shahla POOLE, CMP, , 2776-04, 1987-08 #### [facility] ([id number]) [address] [place] [address] Neutrophils/100 WBC (Bld) 95.4 % Normal [facility] Comment on above: Performed By: #### Shahla POOLE, CMP, , 2776-04, 1987-08 #### [facility] ([id number]) [address], [address] [place] [address] Platelet mean volume (Bld) [Entitic vol] 9.1 fL Normal 7-12 [facility] Comment on above: Performed By: #### Shahla POOLE, CMP, , 2776-04, 1987-08 #### [facility] ([id number]) [address], [address] [place] [address] Platelets (Bld) [#/Vol] 183 10*3/uL Normal 150-450 [facility] Comment on above: Performed By: #### C BCA, CMP, , 2776-04, 1987-08 #### [facility] ([id number]) [address], [address] [place] [address] RBC COUNT 3.76 X10E12/L Low 3.80-5.20 [facility] Comment on above: Performed By: #### C BCA, CMP, , 2776-04, 1987-08 #### [facility] ([id number]) [address], [address] [place] [address] WBC (Bld) [#/Vol] 12.8 10*3/uL High 4.0-11.0 [facility] Comment on above: Performed By: #### C BCA, CMP, , 2776-04, 1987-08 #### [facility] ([id number]) [address] [place] [address] COMPREHENSIVE METABOLIC PANE [facility] 11-07-2023 Albumin [Mass/Vol] 3.5 g/dL Normal 3.2-5.3 [facility] Comment on above: Performed By: #### C BCA, CMP, , 2776-04, 1987-08 #### [facility] ([id number]) [address], [address] [place] [address] ALP [Catalytic activity/Vol] 46 U/L Normal 39-130 [facility] Comment on above: Performed By: #### C BCA, CMP, , 2776-04, 1987-08 #### [facility] ([id number]) [address], [address] [place] [address] ALT [Catalytic activity/Vol] 31 U/L Normal 0-31 [facility] Comment on above: Performed By: #### C BCA, CMP, , 2776-04, 1987-08 #### [facility] ([id number]) [address], [address] [place] [address] Anion gap [Moles/Vol] 9 mmol/L Normal 5-15 [facility] Comment on above: Performed By: #### C BCA, CMP, , 2776-04, 1987-08 #### [facility] ([id number]) [address] [place] [address] AST [Catalytic activity/Vol] 10 U/L Normal 0-41 [facility] Comment on above: Performed By: #### C BCA, CMP, , 2776-04, 1987-08 #### [facility] ([id number]) [address], [address] [place] [address] Bilirubin [Mass/Vol] 0.5 mg/dL Normal 0.3-1.2 [facility] Comment on above: Performed By: #### C BCA, CMP, , 2776-04, 1987-08 #### [facility] ([id number]) [address] [place] [address] Calcium [Mass/Vol] 9.1 mg/dL Normal 8.5-10.5 [facility] Comment on above: Performed By: #### C BCA, CMP, , 2776-04, 1987-08 #### [facility] ([id number]) [address] [place] [address] Chloride [Moles/Vol] 104 mmol/L Normal 98-109 [facility] Comment on above: Performed By: #### C BCA, CMP, , 2776-04, 1987-08 #### [facility] ([id number]) [address], [address] [place] [address] CO2 [Moles/Vol] 26 mmol/L Normal 22-32 [facility] Comment on above: Performed By: #### C EDEL POOLE, , 2776-04, 1987-08 #### [facility] ([id number]) [address] [place] [address] Creatinine [Mass/Vol] 1.60 mg/dL High 0.40-1.00 [facility] Comment on above: Result Comment: METH OD TRACEABLE TO IDMS STANDARD Performed By: #### C EDEL POOLE, , 2776-04, 1987-08 #### [facility] ([id number]) [address] [place] [address] GFR/1.73 sq M.predicted among non-blacks MDRD (S/P/Bld) [Vol rate/Area] 37 mL/min/{1.73_m2} Low >59 [facility] Comment on above: Result Comment: Reported eGFR is based on the CKD-EPI 2020 equation that does not use a race coefficient. Performed By: #### C EDEL POOLE, , 2776-04, 1987-08 #### [facility] ([id number]) [address] [place] [address] Glucose [Mass/Vol] 119 mg/dL High 65-99 [facility] Comment on above: Performed By: #### C EDEL POOLE, , 2776-04, 1987-08 #### [facility] ([id number]) [address] [place] [address] Potassium [Moles/Vol] 5.2 mmol/L High 3.5-5.0 [facility] Comment on above: Performed By: #### C VIRGILIO CMP, , 2776-04, 1987-08 #### [facility] ([id number]) [address] [place] [address] Protein [Mass/Vol] 5.3 g/dL Low 6.0-8.0 [facility] Comment on above: Performed By: #### C BCA, CMP, 27889-7, 2776-04, 1987-08 #### [facility] ([id number]) [address] [place] [address] Sodium [Moles/Vol] 139 mmol/L Normal 134-146 [facility] Comment on above: Performed By: #### C BCA, CMP, , 2776-04, 1987-08 #### [facility] ([id number]) [address] [place] [address] Urea nitrogen [Mass/Vol] 52 mg/dL High 5-23 [facility] Comment on above: Performed By: #### C BCA, CMP, , 2776-04, 1987-08 #### [facility] ([id number]) [address], [address] [place] [address] Follow-Upon 11-07-2023 Follow-Up [id number] Mckeon 1965 F Date Provider Department Center 11/07/2023 [facility] [place] [facility] family history on file Level of Service:45016 CO OFFICE/OUTPATIENT ESTABLISHED MOD MDM 30 MIN () Reason for Visit and Comments: Follow-up [[id number]] - TT follow up Concerns: States was told to due TB test; no further concerns Normal [facility] M. tuberculosis stim IFN-g p tiffanie (Bld)on 11-07-2023 Mitogen minus Nil Result 0.07 IU/mL Normal [facility] Nil Result 0.01 IU/mL Normal [facility] Comment on above: Result Comment: NOTE Test Performed by: [facility] [address] [place] [address] Remote Sensing Analyst: Ledy Son Ph.D.; CLIA# [id number] QuantiFERON-Tb Gold Plus Result Indeterminate Abnormal Negative [facility] Comment on above: Result Comment: NOTE Indeterminate due to a low interferon-gamma level in the mitogen (positive control) tube. This may occur due to a low lymphocyte count, reduced lymphocyte activity or inability of the patient's lymphocytes to generate interferon-gamma. The reference range for the 'Mitogen minus Nil Result' is >=0.5 IU/mL. TB1 Ag minus Nil Result 0.00 IU/mL Normal [facility] TB2 Ag minus Nil Result 0.00 IU/mL Normal [facility] Orders Onlyon 11-06-2023 Orders Only [id number] Dov,Ter ri L 1965 F Date Provider Department [place] 11/06/2023 1644-JANE STORY [facility] INF [facility] No family history on file Normal [facility] Orders Only [id number] Dov,Ter ri L 1965 Date [facility] Department [place] 11/06/2023 215-ELIZABETH HI I [facility] No family history on file Normal [facility] Orders Only [id number] Dov,Ter ri L 1965 Date Provider Department [place] 11/06/2023 190-ROGER WRAY [facility] INF [facility] No family history on file Normal [facility] BASIC METABOLIC PANLon 11-01 Anion gap [Moles/Vol] 9 mmol/L Normal 5-15 [facility] Comment on above: Performed By: #### 8 9579-7 #### [facility] ([id number]) [address] [place] [address] Calcium [Mass/Vol] 8.5 mg/dL Normal 8.5-10.5 [facility] Comment on above: Performed By: #### 8 9579-7 #### [facility] ([id number]) [address] [place] [address] Chloride [Moles/Vol] 108 mmol/L Normal 98-109 [facility] Comment on above: Performed By: #### 8 9579-7 #### [facility] ([id number]) [address] [place] [address] CO2 [Moles/Vol] 24 mmol/L Normal 22-32 [facility] Comment on above: Performed By: #### 8 9579-7 #### [facility] ([id number]) [address] [place] [address] Creatinine [Mass/Vol] 1.59 mg/dL High 0.40-1.00 [facility] Comment on above: Result Comment: METH OD TRACEABLE TO IDMS STANDARD Performed By: #### 8 9579-7 #### [facility] ([id number]) [address] [place] [address] GFR/1.73 sq M.predicted among non-blacks MDRD (S/P/Bld) [Vol rate/Area] 37 mL/min/{1.73_m2} Low >59 [facility] Comment on above: Result Comment: Reported eGFR is based on the CKD-EPI 2020 equation that does not use a race coefficient. Performed By: #### 8 9579-7 #### [facility] ([id number]) [address] [place] [address] Glucose [Mass/Vol] 109 mg/dL High 65-99 [facility] Comment on above: Performed By: #### 8 9579-7 #### [facility] ([id number]) [address] [place] [address] Potassium [Moles/Vol] 3.9 mmol/L Normal 3.5-5.0 [facility] Comment on above: Performed By: #### 8 9579-7 #### [facility] ([id number]) [address] [place] [address] Sodium [Moles/Vol] 141 mmol/L Normal 134-146 [facility] Comment on above: Performed By: #### 8 9579-7 #### [facility] ([id number]) [address] [place] [address] Urea nitrogen [Mass/Vol] 40 mg/dL High 5-23 [facility] Comment on above: Performed By: #### 8 9579-7 #### [facility] ([id number]) [address] [place] [address], [place] [address] Orders Onlyon 11-01-2023 Orders Only [id number] Silva ri L 1965 F Date Provider Department Center 11/01/2023 JANE JEFFRIES INF [facility] No family history on file [facility] Orders Onlyon 10-27-2023 Orders Only [id number] Silva ri 1965 F Date Provider Department Center 10/27[facility]2023 [facility] history on file [facility] 36on 10-25-2023 36 Called, left message for patient to call and make an appointment. [facility] 36 Patient was seen by inpatient rheumatology service with Dr. 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 Staff to kindly call patient to set up an appointment with Dr. Rashaad Phelan with Dr. Hi at [facility]. [facility] phone number in [facility] chart H: [phone] C: [phone] Patient's address may have also changed. Normal [facility] CBC AND AUTO DIFFon 10-25-19 24 ABSOLUTE BASOPHIL 0.1 X10E9/L Normal 0.0-0.2 [facility] Comment on above: Performed By: #### C VIRGILIO, CMP, , 2776-04, 1987-08 #### [facility] ([id number]) [address] [place] [address] ABSOLUTE NEUTROPHIL 6.5 X10E9/L Normal 1.5-6.6 [facility] Comment on above: Performed By: #### C BCA, CMP, , 2776-04, 1987-08 #### [facility] ([id number]) [address] [place] [address] Basophils/100 WBC (Bld) 0.6 % Normal [facility] Comment on above: Performed By: #### C BCA, CMP, , 2776-04, 1987-08 #### [facility] ([id number]) [address] [place] [address] Eosinophils (Bld) [#/Vol] 0.0 10*3/uL Normal 0.0-0.4 [facility] Comment on above: Performed By: #### C VIRGILIO, CMP, , 2776-04, 1987-08 #### [facility] ([id number]) [address], [address] [place] [address] Eosinophils/100 WBC (Bld) 0.4 % Normal [facility] Comment on above: Performed By: #### C VIRGILIO, CMP, , 2776-04, 1987-08 #### [facility] ([id number]) [address], [address] [place] [address] Erythrocyte distribution width (RBC) [Ratio] 14.5 % Normal 11.5-15.0 [facility] Comment on above: Performed By: #### C VIRGILIO, CMP, , 2776-04, 1987-08 #### [facility] ([id number]) [address], [address] [place] [address] Hematocrit (Bld) [Volume fraction] 30.5 % Low 35-47 [facility] Comment on above: Performed By: #### C BCA, CMP, , 2776-04, 1987-08 #### [facility] ([id number]) [address], [address] [place] [address] Hemoglobin (Bld) [Mass/Vol] 10.5 g/dL Low 11.7-15.5 [facility] Comment on above: Performed By: #### C BCA, CMP, , 2776-04, 1987-08 #### [facility] ([id number]) [address], [address] [place] [address] Lymphocytes (Bld) [#/Vol] 1.4 10*3/uL Normal 1.0-3.5 [facility] Comment on above: Performed By: #### Shahla BCA, CMP, , 2776-04, 1987-08 #### [facility] ([id number]) [address], [address] [place] [address] Lymphocytes/100 WBC (Bld) 16.2 % Normal [facility] Comment on above: Performed By: #### C BCA, CMP, , 2776-04, 1987-08 #### [facility] ([id number]) [address], [address] [place] [address] MCH (RBC) [Entitic mass] 28.5 pg Normal 27-34 [facility] Comment on above: Performed By: #### Shahla BCA, CMP, , 2776-04, 1987-08 #### [facility] ([id number]) [address], [address] [place] [address] MCHC (RBC) [Mass/Vol] 34.4 g/dL Normal 32-36 [facility] Comment on above: Performed By: #### Shahla BCA, CMP, , 2776-04, 1987-08 #### [facility] ([id number]) [address], [address] [place] [address] MCV (RBC) [Entitic vol] 83 fL Normal 80-100 [facility] Comment on above: Performed By: #### Shahla BCA, CMP, , 2776-04, 1987-08 #### [facility] ([id number]) [address], [address] [place] [address] Monocytes (Bld) [#/Vol] 0.5 10*3/uL Normal 0-0.9 [facility] Comment on above: Performed By: #### Shahla BCA, CMP, , 2776-04, 1987-08 #### [facility] ([id number]) [address], [facility] [address] [place] [address] Monocytes/100 WBC (Bld) 5.9 % Normal [facility] Comment on above: Performed By: #### C BCA, CMP, , 2776-04, 1987-08 #### [facility] ([id number]) [address], [facility] [address] [place] [address] Neutrophils/100 WBC (Bld) 76.9 % Normal [facility] Comment on above: Performed By: #### Shahla BCA, CMP, , 2776-04, 1987-08 #### [facility] ([id number]) [address], [address] [place] [address] Platelet mean volume (Bld) [Entitic vol] 9.1 fL Normal 7-12 [facility] Comment on above: Performed By: #### Shahla BCA, CMP, , 2776-04, 1987-08 #### [facility] ([id number]) [address], [address] [place] [address] Platelets (Bld) [#/Vol] 248 10*3/uL Normal 150-450 [facility] Comment on above: Performed By: #### Shahla BCA, CMP, , 2776-04, 1987-08 #### [facility] ([id number]) [address], [facility] [address] [place] [address] RBC COUNT 3.68 X10E12/L Low 3.80-5.20 [facility] Comment on above: Performed By: #### Shahla BCA, CMP, , 2776-04, 1987-08 #### [facility] ([id number]) [address], [address] [place] [address] RBC morphology finding Nom (Bld) REVIEWED Normal [facility] Comment on above: Performed By: #### C BCA, CMP, , 2776-04, 1987-08 #### [facility] ([id number]) [address], [address] [place] [address] WBC (Bld) [#/Vol] 8.4 10*3/uL Normal 4.0-11.0 [facility] Comment on above: Performed By: #### C BCA, CMP, , 2776-04, 1987-08 #### [facility] ([id number]) [address], [address] [place] [address] COMPREHENSIVE METABOLIC PANE Phu 10-25-2023 Albumin [Mass/Vol] 3.1 g/dL Low 3.2-5.3 [facility] Comment on above: Performed By: #### C BCA, CMP, , 2776-04, 1987-08 #### [facility] ([id number]) [address], [address] [place] [address] ALP [Catalytic activity/Vol] 35 U/L Low 39-130 [facility] Comment on above: Performed By: #### C BCA, CMP, , 2776-04, 1987-08 #### [facility] ([id number]) [address], [address] [place] [address] ALT [Catalytic activity/Vol] 8 U/L Normal 0-31 [facility] Comment on above: Performed By: #### C BCA, CMP, , 2776-04, 1987-08 #### [facility] ([id number]) [address], [address] [place] [address] Anion gap [Moles/Vol] 9 mmol/L Normal 5-15 [facility] Comment on above: Performed By: #### C BCA, CMP, , 2776-04, 1987-08 #### [facility] ([id number]) [address], [address] [place] [address] AST [Catalytic activity/Vol] 10 U/L Normal 0-41 [facility] Comment on above: Performed By: #### C BCA, CMP, , 2776-04, 1987-08 #### [facility] ([id number]) [address], [address] [place] [address] Bilirubin [Mass/Vol] 0.3 mg/dL Normal 0.3-1.2 [facility] Comment on above: Performed By: #### C BCA, CMP, , 2776-04, 1987-08 #### [facility] ([id number]) [address], [address] [place] [address] Calcium [Mass/Vol] 8.6 mg/dL Normal 8.5-10.5 [facility] Comment on above: Performed By: #### C BCA, CMP, , 2776-04, 1987-08 #### [facility] ([id number]) [address], [address] [place] [address] Chloride [Moles/Vol] 106 mmol/L Normal 98-109 [facility] Comment on above: Performed By: #### C BCA, CMP, , 2776-04, 1987-08 #### [facility] ([id number]) [address], [address] [place] [address] CO2 [Moles/Vol] 25 mmol/L Normal 22-32 [facility] Comment on above: Performed By: #### C BCA, CMP, , 2776-04, 1987-08 #### [facility] ([id number]) [address], [address] [place] [address] Creatinine [Mass/Vol] 2.12 mg/dL High 0.40-1.00 [facility] Comment on above: Result Comment: METH OD TRACEABLE TO IDMS STANDARD Performed By: #### C EDEL POOLE, , 2776-04, 1987-08 #### [facility] ([id number]) [address], [address] [place] [address] GFR/1.73 sq M.predicted among non-blacks MDRD (S/P/Bld) [Vol rate/Area] 26 mL/min/{1.73_m2} Low >59 [facility] Comment on above: Result Comment: Reported eGFR is based on the CKD-EPI 2020 equation that does not use a race coefficient. Performed By: #### C EDEL POOLE, , 2776-04, 1987-08 #### [facility] ([id number]) [address], [address] [place] [address] Glucose [Mass/Vol] 81 mg/dL Normal 65-99 [facility] Comment on above: Performed By: #### C EDEL POOLE, , 2776-04, 1987-08 #### [facility] ([id number]) [address], [address] [place] [address] Potassium [Moles/Vol] 4.1 mmol/L Normal 3.5-5.0 [facility] Comment on above: Performed By: #### C VIRGILIO CMP, , 2776-04, 1987-08 #### [facility] ([id number]) [address], [address] [place] [address] Protein [Mass/Vol] 4.9 g/dL Low 6.0-8.0 [facility] Comment on above: Performed By: #### C VIRGILIO CMP, , 2776-04, 1987-08 #### [facility] ([id number]) [address], [address] [place] [address] Sodium [Moles/Vol] 140 mmol/L Normal 134-146 [facility] Comment on above: Performed By: #### C VIRGILIO CMP, , 2776-04, 1987-08 #### [facility] ([id number]) [address], [address] [place] [address] Urea nitrogen [Mass/Vol] 58 mg/dL High 5-23 [facility] Comment on above: Performed By: #### C VIRGILIO, CMP, , 2776-04, 1987-08 #### [facility] ([id number]) [address], [address] [address] Calcium.ionized (Bld) [Mass/ Vol]on 10-25-2023 IONIZED CALCIUM 4.8 mg/dL Normal 4.5-5.3 [facility] Comment on above: Performed By: #### C VIRGILIO, EDEL, , 2776-04, 1987-08 #### [facility] ([id number]) [address], [address] [place] [address] MAGNESIUMon 10-25-2023 Magnesium [Mass/Vol] 2.1 mg/dL Normal 1.8-2.6 [facility] Comment on above: Performed By: #### C VIRGILIO, CMP, , 2776-04, 1987-08 #### [facility] ([id number]) [address], [address] [place] [address] PHOSPHORUSon 10-25-2023 Phosphate [Mass/Vol] 3.5 mg/dL Normal 2.4-4.9 [facility] Comment on above: Performed By: #### C VIRGILIO, CMP, , 2776-04, 1987-08 #### [facility] ([id number]) [address], [address] [place] [address] CBC AND AUTO DIFFon 10-24-19 24 ABSOLUTE BASOPHIL 0.0 X10E9/L Normal 0.0-0.2 [facility] Comment on above: Performed By: #### C BCA, CMP, , 2776-04, 1987-08 #### [facility] ([id number]) [address], [address] [place] [address] ABSOLUTE NEUTROPHIL 7.2 X10E9/L High 1.5-6.6 [facility] Comment on above: Performed By: #### C BCA, CMP, , 2776-04, 1987-08 #### [facility] ([id number]) [address], [address] [place] [address] Basophils/100 WBC (Bld) 0.1 % Normal [facility] Comment on above: Performed By: #### Shahla BCA, CMP, , 2776-04, 1987-08 #### [facility] ([id number]) [address], [address] [place] [address] Eosinophils (Bld) [#/Vol] 0.0 10*3/uL Normal 0.0-0.4 [facility] Comment on above: Performed By: #### Shahla BCA, CMP, , 2776-04, 1987-08 #### [facility] ([id number]) [address], [address] [place] [address] Eosinophils/100 WBC (Bld) 0.2 % Normal [facility] Comment on above: Performed By: #### C BCA, CMP, , 2776-04, 1987-08 #### [facility] ([id number]) [address], [address] [place] [address] Erythrocyte distribution width (RBC) [Ratio] 14.7 % Normal 11.5-15.0 [facility] Comment on above: Performed By: #### C BCA, CMP, , 2776-04, 1987-08 #### [facility] ([id number]) [address], [address] [place] [address] Hematocrit (Bld) [Volume fraction] 31.4 % Low 35-47 [facility] Comment on above: Performed By: #### C VIRGILIO CMP, , 2776-04, 1987-08 #### [facility] ([id number]) [address], [address] [place] [address] Hemoglobin (Bld) [Mass/Vol] 10.5 g/dL Low 11.7-15.5 [facility] Comment on above: Performed By: #### C VIRGILIO, CMP, , 2776-04, 1987-08 #### [facility] ([id number]) [address], [address] [place] [address] Lymphocytes (Bld) [#/Vol] 3.1 10*3/uL Normal 1.0-3.5 [facility] Comment on above: Performed By: #### Shahla POOLE, CMP, , 2776-04, 1987-08 #### [facility] ([id number]) [address], [address] [place] [address] Lymphocytes/100 WBC (Bld) 27.5 % Normal [facility] Comment on above: Performed By: #### Shahla POOLE, CMP, , 2776-04, 1987-08 #### [facility] ([id number]) [address], [address] [place] [address] MCH (RBC) [Entitic mass] 28.1 pg Normal 27-34 [facility] Comment on above: Performed By: #### Shahla POOLE, CMP, , 2776-04, 1987-08 #### [facility] ([id number]) [address], [address] [place] [address] MCHC (RBC) [Mass/Vol] 33.3 g/dL Normal 32-36 [facility] Comment on above: Performed By: #### C VIRGILIO, CMP, , 2776-04, 1987-08 #### [facility] ([id number]) [address], [address] [place] [address] MCV (RBC) [Entitic vol] 84 fL Normal 80-100 [facility] Comment on above: Performed By: #### Shahla POOLE, CMP, , 2776-04, 1987-08 #### [facility] ([id number]) [address], [address] [place] [address] Monocytes (Bld) [#/Vol] 0.8 10*3/uL Normal 0-0.9 [facility] Comment on above: Performed By: #### Shahla POOLE, CMP, , 2776-04, 1987-08 #### [facility] ([id number]) [address], [address] [place] [address] Monocytes/100 WBC (Bld) 7.6 % Normal [facility] Comment on above: Performed By: #### Shahla POOLE, CMP, , 2776-04, 1987-08 #### [facility] ([id number]) [address], [address] [place] [address] Neutrophils/100 WBC (Bld) 64.6 % Normal [facility] Comment on above: Performed By: #### Shahla POOLE, CMP, , 2776-04, 1987-08 #### [facility] ([id number]) [address], [address] [place] [address] Platelet mean volume (Bld) [Entitic vol] 9.6 fL Normal 7-12 [facility] Comment on above: Performed By: #### Shahla BCA, CMP, , 2776-04, 1987-08 #### [facility] ([id number]) [address], [address] [place] [address] Platelets (Bld) [#/Vol] 304 10*3/uL Normal 150-450 [facility] Comment on above: Performed By: #### C BCA, CMP, , 2776-04, 1987-08 #### [facility] ([id number]) [address], [address] [place] [address] RBC COUNT 3.73 X10E12/L Low 3.80-5.20 [facility] Comment on above: Performed By: #### C BCA, CMP, , 2776-04, 1987-08 #### [facility] ([id number]) [address], [address] [place] [address] WBC (Bld) [#/Vol] 11.2 10*3/uL High 4.0-11.0 [facility] Comment on above: Performed By: #### C BCA, CMP, , 2776-04, 1987-08 #### [facility] ([id number]) [address], [address] [place] [address] COMPREHENSIVE METABOLIC PANE Phu 10-24-2023 Albumin [Mass/Vol] 3.2 g/dL Normal 3.2-5.3 [facility] Comment on above: Performed By: #### C BCA, CMP, , 2776-04, 1987-08 #### [facility] ([id number]) [address], [address] [place] [address] ALP [Catalytic activity/Vol] 37 U/L Low 39-130 [facility] Comment on above: Performed By: #### C BCA, CMP, , 2776-04, 1987-08 #### [facility] ([id number]) [address], [address] [place] [address] ALT [Catalytic activity/Vol] 8 U/L Normal 0-31 [facility] Comment on above: Performed By: #### C BCA, CMP, , 2776-04, 1987-08 #### [facility] ([id number]) [address], [address] [place] [address] Anion gap [Moles/Vol] 11 mmol/L Normal 5-15 [facility] Comment on above: Performed By: #### C BCA, CMP, , 2776-04, 1987-08 #### [facility] ([id number]) [address], [address] [place] [address] AST [Catalytic activity/Vol] 9 U/L Normal 0-41 [facility] Comment on above: Performed By: #### C BCA, CMP, , 2776-04, 1987-08 #### [facility] ([id number]) [address], [address] [place] [address] Bilirubin [Mass/Vol] 0.3 mg/dL Normal 0.3-1.2 [facility] Comment on above: Performed By: #### C BCA, CMP, , 2776-04, 1987-08 #### [facility] ([id number]) [address], [address] [place] [address] Calcium [Mass/Vol] 8.7 mg/dL Normal 8.5-10.5 [facility] Comment on above: Performed By: #### C BCA, CMP, , 2776-04, 1987-08 #### [facility] ([id number]) [address], [address] [place] [address] Chloride [Moles/Vol] 103 mmol/L Normal 98-109 [facility] Comment on above: Performed By: #### C BCA, CMP, , 2776-04, 1987-08 #### [facility] ([id number]) [address], [address] [place] [address] CO2 [Moles/Vol] 26 mmol/L Normal 22-32 [facility] Comment on above: Performed By: #### C VIRGILIO CMP, , 2776-04, 1987-08 #### [facility] ([id number]) [address] [place] [address] Creatinine [Mass/Vol] 2.33 mg/dL High 0.40-1.00 [facility] Comment on above: Result Comment: METH OD TRACEABLE TO IDMS STANDARD Performed By: #### C EDEL POOLE, , 2776-04, 1987-08 #### [facility] ([id number]) [address] [place] [address] GFR/1.73 sq M.predicted among non-blacks MDRD (S/P/Bld) [Vol rate/Area] 24 mL/min/{1.73_m2} Low >59 [facility] Comment on above: Result Comment: Reported eGFR is based on the CKD-EPI 2020 equation that does not use a race coefficient. Performed By: #### C EDEL POOLE, , 2776-04, 1987-08 #### [facility] ([id number]) [address] [place] [address] Glucose [Mass/Vol] 80 mg/dL Normal 65-99 [facility] Comment on above: Performed By: #### C EDEL POOLE, , 2776-04, 1987-08 #### [facility] ([id number]) [address] [place] [address] Potassium [Moles/Vol] 3.9 mmol/L Normal 3.5-5.0 [facility] Comment on above: Performed By: #### C VIRGILIO CMP, , 2776-04, 1987-08 #### [facility] ([id number]) [address] [place] [address] Protein [Mass/Vol] 5.1 g/dL Low 6.0-8.0 [facility] Comment on above: Performed By: #### C BCA, CMP, , 2776-04, 1987-08 #### [facility] ([id number]) [address], [address] [place] [address] Sodium [Moles/Vol] 140 mmol/L Normal 134-146 [facility] Comment on above: Performed By: #### C BCA, CMP, , 2776-04, 1987-08 #### [facility] ([id number]) [address], [address] [place] [address] Urea nitrogen [Mass/Vol] 67 mg/dL High 5-23 [facility] Comment on above: Performed By: #### C BCA, CMP, , 2776-04, 1987-08 #### [facility] ([id number]) [address] [place] [address] Calcium.ionized (Bld) [Mass/ Vol]on 10-24-2023 IONIZED CALCIUM 4.7 mg/dL Normal 4.5-5.3 [facility] Comment on above: Performed By: #### C BCA, CMP, , 2776-04, 1987-08 #### [facility] ([id number]) [address], [address] [place] [address] HBV core Ab IA Qlon 10-24-19 ANTI HBc Negative Normal NEG [facility] Comment on above: Performed By: #### C BCA, CMP, , 2776-04, 1987-08 #### [facility] ([id number]) [address], [address] [place] [address] HBV surface Ag IA Qlon 10-23 HEPATITIS B SURF AG Negative Normal NEG [facility] Comment on above: Performed By: #### C BCA, CMP, , 2776-04, 1987-08 #### [facility] ([id number]) [address], [address] [place] [address] MAGNESIUMon 10-24-2023 Magnesium [Mass/Vol] 2.2 mg/dL Normal 1.8-2.6 [facility] Comment on above: Performed By: #### C EDEL POOLE, , 2776-04, 1987-08 #### [facility] ([id number]) [address] [place] [address] PHOSPHORUSon 10-24-2023 Phosphate [Mass/Vol] 3.4 mg/dL Normal 2.4-4.9 [facility] Comment on above: Performed By: #### Shahla POOLE CMP, , 2776-04, 1987-08 #### [facility] ([id number]) [address], [address] [place] [address] CBC AND AUTO DIFFon 10-23-19 24 Band form neutrophils/100 WBC (Bld) 2.0 % Normal [facility] Comment on above: Performed By: #### Shahla POOLE CMP, , 2776-04, 1987-08 #### [facility] ([id number]) [address], [facility] [address] [place] [address] Erythrocyte distribution width (RBC) [Ratio] 14.6 % Normal 11.5-15.0 [facility] Comment on above: Performed By: #### Shahla POOLE CMP, , 2776-04, 1987-08 #### [facility] ([id number]) [address], [address] [place] [address] Hematocrit (Bld) [Volume fraction] 31.6 % Low 35-47 [facility] Comment on above: Performed By: #### Shahla POOLE CMP, , 2776-04, 1987-08 #### [facility] ([id number]) [address], [address] [place] [address] Hemoglobin (Bld) [Mass/Vol] 10.5 g/dL Low 11.7-15.5 [facility] Comment on above: Performed By: #### C BCA, CMP, , 2776-04, 1987-08 #### [facility] ([id number]) [address], [address] [place] [address] Lymphocytes (Bld) [#/Vol] 2.0 10*3/uL Normal 1.0-3.5 [facility] Comment on above: Performed By: #### C BCA, CMP, , 2776-04, 1987-08 #### [facility] ([id number]) [address], [facility] [address] [place] [address] Lymphocytes/100 WBC (Bld) 21.0 % Normal [facility] Comment on above: Performed By: #### Shahla BCA, CMP, , 2776-04, 1987-08 #### [facility] ([id number]) [address], [address] [place] [address] MCH (RBC) [Entitic mass] 28.2 pg Normal 27-34 [facility] Comment on above: Performed By: #### Shahla BCA, CMP, , 2776-04, 1987-08 #### [facility] ([id number]) [address], [facility] [address] [place] [address] MCHC (RBC) [Mass/Vol] 33.3 g/dL Normal 32-36 [facility] Comment on above: Performed By: #### C BCA, CMP, , 2776-04, 1987-08 #### [facility] ([id number]) [address] [address] [place] [address] MCV (RBC) [Entitic vol] 85 fL Normal 80-100 [facility] Comment on above: Performed By: #### Shahla BCA, CMP, , 2776-04, 1987-08 #### [facility] ([id number]) [address], [address] [place] [address] Monocytes (Bld) [#/Vol] 1.8 10*3/uL High 0-0.9 [facility] Comment on above: Performed By: #### C VIRGILIO, CMP, , 2776-04, 1987-08 #### [facility] ([id number]) [address] [place] [address] Monocytes/100 WBC (Bld) 19.0 % Normal [facility] Comment on above: Performed By: #### Shahla POOLE, CMP, , 2776-04, 1987-08 #### [facility] ([id number]) [address] [place] [address] Neutrophils (Bld) [#/Vol] 5.8 10*3/uL Normal 1.5-6.6 [facility] Comment on above: Performed By: #### Shahla POOLE, CMP, , 2776-04, 1987-08 #### [facility] ([id number]) [address] [place] [address] Platelet mean volume (Bld) [Entitic vol] 9.3 fL Normal 7-12 [facility] Comment on above: Performed By: #### Shahla POOLE, CMP, , 2776-04, 1987-08 #### [facility] ([id number]) [address] [place] [address] Platelets (Bld) [#/Vol] 297 10*3/uL Normal 150-450 [facility] Comment on above: Performed By: #### Shahla POOLE, CMP, , 2776-04, 1987-08 #### [facility] ([id number]) [address], [address] [place] [address] RBC COUNT 3.73 X10E12/L Low 3.80-5.20 [facility] Comment on above: Performed By: #### C BCA, CMP, , 2776-04, 1987-08 #### [facility] ([id number]) [address], [address] [place] [address] RBC morphology finding Nom (Bld) NORMAL Normal [facility] Comment on above: Performed By: #### C BCA, CMP, , 2776-04, 1987-08 #### [facility] ([id number]) [address], [address] [place] [address] SEG NEUTROPHIL 58.0 % Normal [facility] Comment on above: Performed By: #### C BCA, CMP, , 2776-04, 1987-08 #### [facility] ([id number]) [address], [address] [place] [address] WBC (Bld) [#/Vol] 9.6 10*3/uL Normal 4.0-11.0 [facility] Comment on above: Performed By: #### C BCA, CMP, , 2776-04, 1987-08 #### [facility] ([id number]) [address], [address] [place] [address] COMPREHENSIVE METABOLIC PANE [facility] 10-23-2023 Albumin [Mass/Vol] 3.2 g/dL Normal 3.2-5.3 [facility] Comment on above: Performed By: #### C BCA, CMP, , 2776-04, 1987-08 #### [facility] ([id number]) [address], [address] [place] [address] ALP [Catalytic activity/Vol] 38 U/L Low 39-130 [facility] Comment on above: Performed By: #### C BCA, CMP, , 2776-04, 1987-08 #### [facility] ([id number]) [address], [address] [place] [address] ALT [Catalytic activity/Vol] 10 U/L Normal 0-31 [facility] Comment on above: Performed By: #### C BCA, CMP, , 2776-04, 1987-08 #### [facility] ([id number]) [address], [address] [place] [address] Anion gap [Moles/Vol] 9 mmol/L Normal 5-15 [facility] Comment on above: Performed By: #### C BCA, CMP, , 2776-04, 1987-08 #### [facility] ([id number]) [address], [address] [place] [address] AST [Catalytic activity/Vol] 10 U/L Normal 0-41 [facility] Comment on above: Performed By: #### C BCA, CMP, , 2776-04, 1987-08 #### [facility] ([id number]) [address], [address] [place] [address] Bilirubin [Mass/Vol] 0.3 mg/dL Normal 0.3-1.2 [facility] Comment on above: Performed By: #### C BCA, CMP, , 2776-04, 1987-08 #### [facility] ([id number]) [address], [address] [place] [address] Calcium [Mass/Vol] 8.7 mg/dL Normal 8.5-10.5 [facility] Comment on above: Performed By: #### C BCA, CMP, , 2776-04, 1987-08 #### [facility] ([id number]) [address], [address] [place] [address] Chloride [Moles/Vol] 102 mmol/L Normal 98-109 [facility] Comment on above: Performed By: #### C BCA, CMP, , 2776-04, 1987-08 #### [facility] ([id number]) [address], [address] [place] [address] CO2 [Moles/Vol] 29 mmol/L Normal 22-32 [facility] Comment on above: Performed By: #### C EDEL POOLE, , 2776-04, 1987-08 #### [facility] ([id number]) [address], [address] [place] [address] Creatinine [Mass/Vol] 2.68 mg/dL High 0.40-1.00 [facility] Comment on above: Result Comment: METH OD TRACEABLE TO IDMS STANDARD Performed By: #### C EDEL POOLE, , 2776-04, 1987-08 #### [facility] ([id number]) [address] [place] [address] GFR/1.73 sq M.predicted among non-blacks MDRD (S/P/Bld) [Vol rate/Area] 20 mL/min/{1.73_m2} Low >59 [facility] Comment on above: Result Comment: Reported eGFR is based on the CKD-EPI 2020 equation that does not use a race coefficient. Performed By: #### C EDEL POOLE, , 2776-04, 1987-08 #### [facility] ([id number]) [address] [place] [address] Glucose [Mass/Vol] 86 mg/dL Normal 65-99 [facility] Comment on above: Performed By: #### C VIRGILIO CMP, , 2776-04, 1987-08 #### [facility] ([id number]) [address], [address] [place] [address] Potassium [Moles/Vol] 3.7 mmol/L Normal 3.5-5.0 [facility] Comment on above: Performed By: #### C VIRGILIO CMP, , 2776-04, 1987-08 #### [facility] ([id number]) [address], [address] [place] [address] Protein [Mass/Vol] 5.2 g/dL Low 6.0-8.0 [facility] Comment on above: Performed By: #### C BCA, CMP, , 2776-04, 1987-08 #### [facility] ([id number]) [address], [address] [place] [address] Sodium [Moles/Vol] 140 mmol/L Normal 134-146 [facility] Comment on above: Performed By: #### C BCA, CMP, , 2776-04, 1987-08 #### [facility] ([id number]) [address] [place] [address] Urea nitrogen [Mass/Vol] 72 mg/dL High 5-23 [facility] Comment on above: Performed By: #### C BCA, CMP, , 2776-04, 1987-08 #### [facility] ([id number]) [address] [place] [address] Calcium.ionized (Bld) [Mass/ Vol]on 10-23-2023 IONIZED CALCIUM 4.8 mg/dL Normal 4.5-5.3 [facility] Comment on above: Performed By: #### C BCA, CMP, , 2776-04, 1987-08 #### [facility] ([id number]) [address], [address] [place] [address] MAGNESIUMon 10-23-2023 Magnesium [Mass/Vol] 2.4 mg/dL Normal 1.8-2.6 [facility] Comment on above: Performed By: #### C BCA, CMP, , 2776-04, 1987-08 #### [facility] ([id number]) [address], [address] [place] [address] PHOSPHORUSon 10-23-2023 Phosphate [Mass/Vol] 4.0 mg/dL Normal 2.4-4.9 [facility] Comment on above: Performed By: #### Shahla POOLE CMP, , 2776-04, 1987-08 #### [facility] ([id number]) [address], [address] [place] [address] CBC AND AUTO DIFFon 10-22-19 Erythrocyte distribution width (RBC) [Ratio] 15.0 % Normal 11.5-15.0 [facility] Comment on above: Performed By: #### Shahla POOLE CMP, , 2776-04, 1987-08 #### [facility] ([id number]) [address], [address] [place] [address] Hematocrit (Bld) [Volume fraction] 32.1 % Low 35-47 [facility] Comment on above: Performed By: #### Shahla POOLE CMP, , 2776-04, 1987-08 #### [facility] ([id number]) [address], [address] [place] [address] Hemoglobin (Bld) [Mass/Vol] 11.0 g/dL Low 11.7-15.5 [facility] Comment on above: Performed By: #### Shahla POOLE CMP, , 2776-04, 1987-08 #### [facility] ([id number]) [address], [address] [place] [address] Lymphocytes (Bld) [#/Vol] 1.2 10*3/uL Normal 1.0-3.5 [facility] Comment on above: Performed By: #### Shahla POOLE CMP, , 2776-04, 1987-08 #### [facility] ([id number]) [address], [address] [place] [address] Lymphocytes/100 WBC (Bld) 14.0 % Normal [facility] Comment on above: Performed By: #### Shahla POOLE CMP, , 2776-04, 1987-08 #### [facility] ([id number]) [address], [address] [place] [address] MCH (RBC) [Entitic mass] 28.8 pg Normal 27-34 [facility] Comment on above: Performed By: #### C BCA, CMP, , 2776-04, 1987-08 #### [facility] ([id number]) [address], [address] [place] [address] MCHC (RBC) [Mass/Vol] 34.3 g/dL Normal 32-36 [facility] Comment on above: Performed By: #### C BCA, CMP, , 2776-04, 1987-08 #### [facility] ([id number]) [address], [address] [place] [address] MCV (RBC) [Entitic vol] 84 fL Normal 80-100 [facility] Comment on above: Performed By: #### Shahla BCA, CMP, , 2776-04, 1987-08 #### [facility] ([id number]) [address], [address] [place] [address] Metamyelocytes/100 WBC (Bld) 1.0 % Normal [facility] Comment on above: Performed By: #### Shahla BCA, CMP, , 2776-04, 1987-08 #### [facility] ([id number]) [address], [address] [place] [address] Monocytes (Bld) [#/Vol] 0.6 10*3/uL Normal 0-0.9 [facility] Comment on above: Performed By: #### Shahla BCA, CMP, , 2776-04, 1987-08 #### [facility] ([id number]) [address], [address] [place] [address] Monocytes/100 WBC (Bld) 7.0 % Normal [facility] Comment on above: Performed By: #### C BCA, CMP, , 2776-04, 1987-08 #### [facility] ([id number]) [address], [address] [place] [address] MYELOCYTE 3.0 % Normal [facility] Comment on above: Performed By: #### C BCA, CMP, , 2776-04, 1987-08 #### [facility] ([id number]) [address], [address] [place] [address] Neutrophils (Bld) [#/Vol] 6.7 10*3/uL High 1.5-6.6 [facility] Comment on above: Performed By: #### C BCA, CMP, , 2776-04, 1987-08 #### [facility] ([id number]) [address] [place] [address] Platelet mean volume (Bld) [Entitic vol] 9.4 fL Normal 7-12 [facility] Comment on above: Performed By: #### Shahla BCA, CMP, , 2776-04, 1987-08 #### [facility] ([id number]) [address], [address] [place] [address] Platelets (Bld) [#/Vol] 394 10*3/uL Normal 150-450 [facility] Comment on above: Performed By: #### Shahla BCA, CMP, , 2776-04, 1987-08 #### [facility] ([id number]) [address], [address] [place] [address] RBC COUNT 3.83 X10E12/L Normal 3.80-5.20 [facility] Comment on above: Performed By: #### Shahla BCA, CMP, , 2776-04, 1987-08 #### [facility] ([id number]) [address], [address] [place] [address] RBC morphology finding Nom (Bld) NORMAL Normal [facility] Comment on above: Performed By: #### C BCA, CMP, , 2776-04, 1987-08 #### [facility] ([id number]) [address], [address] [place] [address] SEG NEUTROPHIL 75.0 % Normal [facility] Comment on above: Performed By: #### C BCA, CMP, , 2776-04, 1987-08 #### [facility] ([id number]) [address], [facility] [address] [place] [address] WBC (Bld) [#/Vol] 8.9 10*3/uL Normal 4.0-11.0 [facility] Comment on above: Performed By: #### C BCA, CMP, , 2776-04, 1987-08 #### [facility] ([id number]) [address], [address] [place] [address] COMPREHENSIVE METABOLIC PANE Phu 10-22-2023 Albumin [Mass/Vol] 3.4 g/dL Normal 3.2-5.3 [facility] Comment on above: Performed By: #### C BCA, CMP, , 2776-04, 1987-08 #### [facility] ([id number]) [address], [address] [place] [address] ALP [Catalytic activity/Vol] 43 U/L Normal 39-130 [facility] Comment on above: Performed By: #### C BCA, CMP, , 2776-04, 1987-08 #### [facility] ([id number]) [address], [address] [place] [address] ALT [Catalytic activity/Vol] 9 U/L Normal 0-31 [facility] Comment on above: Performed By: #### C BCA, CMP, , 2776-04, 1987-08 #### [facility] ([id number]) [address], [address] [place] [address] Anion gap [Moles/Vol] 14 mmol/L Normal 5-15 [facility] Comment on above: Performed By: #### C BCA, CMP, , 2776-04, 1987-08 #### [facility] ([id number]) [address], [address] [place] [address] AST [Catalytic activity/Vol] 12 U/L Normal 0-41 [facility] Comment on above: Performed By: #### C BCA, CMP, , 2776-04, 1987-08 #### [facility] ([id number]) [address] [place] [address] Bilirubin [Mass/Vol] 0.3 mg/dL Normal 0.3-1.2 [facility] Comment on above: Performed By: #### C BCA, CMP, , 2776-04, 1987-08 #### [facility] ([id number]) [address], [address] [place] [address] Calcium [Mass/Vol] 8.9 mg/dL Normal 8.5-10.5 [facility] Comment on above: Performed By: #### C BCA, CMP, , 2776-04, 1987-08 #### [facility] ([id number]) [address], [address] [place] [address] Chloride [Moles/Vol] 99 mmol/L Normal 98-109 [facility] Comment on above: Performed By: #### C BCA, CMP, , 2776-04, 1987-08 #### [facility] ([id number]) [address], [address] [place] [address] CO2 [Moles/Vol] 25 mmol/L Normal 22-32 [facility] Comment on above: Performed By: #### C BCA, CMP, , 2776-04, 1987-08 #### [facility] ([id number]) [address] [place] [address] Creatinine [Mass/Vol] 3.16 mg/dL High 0.40-1.00 [facility] Comment on above: Result Comment: METH OD TRACEABLE TO IDMS STANDARD Performed By: #### C VIRGILIO [facility], , 2776-04, 1987-08 #### [facility] ([id number]) [address] [place] [address] GFR/1.73 sq M.predicted among non-blacks MDRD (S/P/Bld) [Vol rate/Area] 16 mL/min/{1.73_m2} Low >59 [facility] Comment on above: Result Comment: Reported eGFR is based on the CKD-EPI 2020 equation that does not use a race coefficient. Performed By: #### C VIRGILIO [facility], , 2776-04, 1987-08 #### [facility] ([id number]) [address] [place] [address] Glucose [Mass/Vol] 109 mg/dL High 65-99 [facility] Comment on above: Performed By: #### C VIRGILIO [facility], , 2776-04, 1987-08 #### [facility] ([id number]) [address] [place] [address] Potassium [Moles/Vol] 4.0 mmol/L Normal 3.5-5.0 [facility] Comment on above: Performed By: #### C BCA, [facility], , 2776-04, 1987-08 #### [facility] ([id number]) [address] [place] [address] Protein [Mass/Vol] 5.7 g/dL Low 6.0-8.0 [facility] Comment on above: Performed By: #### C BCA, CMP, , 2776-04, 1987-08 #### [facility] ([id number]) [address], [address] [place] [address] Sodium [Moles/Vol] 138 mmol/L Normal 134-146 [facility] Comment on above: Performed By: #### C BCA, CMP, , 2776-04, 1987-08 #### [facility] ([id number]) [address], [address] [place] [address] Urea nitrogen [Mass/Vol] 79 mg/dL High 5-23 [facility] Comment on above: Performed By: #### C BCA, CMP, , 2776-04, 1987-08 #### [facility] ([id number]) [address], [address] [place] [address] Calcium.ionized (Bld) [Mass/ Vol]on 10-22-2023 IONIZED CALCIUM 4.5 mg/dL Normal 4.5-5.3 [facility] Comment on above: Performed By: #### C BCA, CMP, , 2776-04, 1987-08 #### [facility] ([id number]) [address], [address] [place] [address] MAGNESIUMon 10-22-2023 Magnesium [Mass/Vol] 2.5 mg/dL Normal 1.8-2.6 [facility] Comment on above: Performed By: #### C BCA, CMP, , 2776-04, 1987-08 #### [facility] ([id number]) [address], [address] [place] [address] PHOSPHORUSon 10-22-2023 Phosphate [Mass/Vol] 4.7 mg/dL Normal 2.4-4.9 [facility] Comment on above: Performed By: #### C BCA, CMP, , 2776-04, 1987-08 #### [facility] ([id number]) [address], [address] [place] [address] Basement membrane IgG Qn (S) on 10-21-2023 Glomerular Base Memb IgG <0.2 Normal <1.0 (Negative) [facility] Comment on above: Result Comment: NOTE Test Performed by: [facility] [address] [id number] Remote Sensing Analyst: Ledy Son Ph.D.; CLIA# [id number] Performed By: #### C BCA, CMP, , 2776-04, 1987-08 #### [facility] ([id number]) [address], [address] [place] [address] CBC AND AUTO DIFFon 10-21-19 ABSOLUTE BASOPHIL 0.0 X10E9/L Normal 0.0-0.2 [facility] Comment on above: Performed By: #### C BCA, CMP, , 2776-04, 1987-08 #### [facility] ([id number]) [address], [address] [place] [address] ABSOLUTE NEUTROPHIL 8.8 X10E9/L High 1.5-6.6 [facility] Comment on above: Performed By: #### C BCA, CMP, , 2776-04, 1987-08 #### [facility] ([id number]) [address] [address] Basophils/100 WBC (Bld) 0.1 % Normal [facility] Comment on above: Performed By: #### C BCA, CMP, , 2776-04, 1987-08 #### [facility] ([id number]) [address], [address] [place] [address] Eosinophils (Bld) [#/Vol] 0.0 10*3/uL Normal 0.0-0.4 [facility] Comment on above: Performed By: #### C BCA, CMP, , 2776-04, 1987-08 #### [facility] ([id number]) [address], [address] [place] [address] Eosinophils/100 WBC (Bld) 0.0 % Normal [facility] Comment on above: Performed By: #### Shahla POOLE, [facility], , 2776-04, 1987-08 #### [facility] ([id number]) [address], [address] [place] [address] Erythrocyte distribution width (RBC) [Ratio] 15.1 % High 11.5-15.0 [facility] Comment on above: Performed By: #### Shahla POOLE, [facility], , 2776-04, 1987-08 #### [facility] ([id number]) [address], [address] [place] [address] Hematocrit (Bld) [Volume fraction] 30.9 % Low 35-47 [facility] Comment on above: Performed By: #### C VIRGILIO, [facility], , 2776-04, 1987-08 #### [facility] ([id number]) [address] [place] [address] Hemoglobin (Bld) [Mass/Vol] 10.7 g/dL Low 11.7-15.5 [facility] Comment on above: Performed By: #### Shahla POOLE, [facility], , 2776-04, 1987-08 #### [facility] ([id number]) [address], [address] [place] [address] Lymphocytes (Bld) [#/Vol] 1.1 10*3/uL Normal 1.0-3.5 [facility] Comment on above: Performed By: #### C BCA, [facility], , 2776-04, 1987-08 #### [facility] ([id number]) [address], [address] [place] [address] Lymphocytes/100 WBC (Bld) 10.9 % Normal [facility] Comment on above: Performed By: #### Shahla POOEL, CMP, , 2776-04, 1987-08 #### [facility] ([id number]) [address], [address] [place] [address] MCH (RBC) [Entitic mass] 29.1 pg Normal 27-34 [facility] Comment on above: Performed By: #### Shahla BCA, CMP, , 2776-04, 1987-08 #### [facility] ([id number]) [address], [address] [place] [address] MCHC (RBC) [Mass/Vol] 34.7 g/dL Normal 32-36 [facility] Comment on above: Performed By: #### Shahla BCA, CMP, , 2776-04, 1987-08 #### [facility] ([id number]) [address], [address] [place] [address] MCV (RBC) [Entitic vol] 84 fL Normal 80-100 [facility] Comment on above: Performed By: #### Shahla BCA, CMP, , 2776-04, 1987-08 #### [facility] ([id number]) [address], [address] [place] [address] Monocytes (Bld) [#/Vol] 0.2 10*3/uL Normal 0-0.9 [facility] Comment on above: Performed By: #### Shahla BCA, CMP, , 2776-04, 1987-08 #### [facility] ([id number]) [address], [address] [place] [address] Monocytes/100 WBC (Bld) 2.2 % Normal [facility] Comment on above: Performed By: #### Shahla BCA, CMP, , 2776-04, 1987-08 #### [facility] ([id number]) [address], [address] [place] [address] Neutrophils/100 WBC (Bld) 86.8 % Normal [facility] Comment on above: Performed By: #### Shahla POOLE CMP, , 2776-04, 1987-08 #### [facility] ([id number]) [address] [place] [address] Platelet mean volume (Bld) [Entitic vol] 9.5 fL Normal 7-12 [facility] Comment on above: Performed By: #### C VIRGILIO, CMP, , 2776-04, 1987-08 #### [facility] ([id number]) [address], [facility] [address] [place] [address] Platelets (Bld) [#/Vol] 297 10*3/uL Normal 150-450 [facility] Comment on above: Performed By: #### Shahla POOLE, CMP, , 2776-04, 1987-08 #### [facility] ([id number]) [address], [address] [place] [address] RBC COUNT 3.69 X10E12/L Low 3.80-5.20 [facility] Comment on above: Performed By: #### Shahla POOLE, CMP, , 2776-04, 1987-08 #### [facility] ([id number]) [address], [address] [place] [address] WBC (Bld) [#/Vol] 10.2 10*3/uL Normal 4.0-11.0 [facility] Comment on above: Performed By: #### Shahla BCA, CMP, , 2776-04, 1987-08 #### [facility] ([id number]) [address], [address] [place] [address] COMPREHENSIVE METABOLIC PANE Phu 10-21-2023 Albumin [Mass/Vol] 3.6 g/dL Normal 3.2-5.3 [facility] Comment on above: Performed By: #### C BCA, CMP, , 2776-04, 1987-08 #### [facility] ([id number]) [address], [address] [place] [address] ALP [Catalytic activity/Vol] 46 U/L Normal 39-130 [facility] Comment on above: Performed By: #### C BCA, CMP, , 2776-04, 1987-08 #### [facility] ([id number]) [address], [address] [place] [address] ALT [Catalytic activity/Vol] 15 U/L Normal 0-31 [facility] Comment on above: Performed By: #### C BCA, CMP, , 2776-04, 1987-08 #### [facility] ([id number]) [address], [address] [place] [address] Anion gap [Moles/Vol] 12 mmol/L Normal 5-15 [facility] Comment on above: Performed By: #### C BCA, CMP, , 2776-04, 1987-08 #### [facility] ([id number]) [address] [place] [address] AST [Catalytic activity/Vol] 18 U/L Normal 0-41 [facility] Comment on above: Performed By: #### C BCA, CMP, , 2776-04, 1987-08 #### [facility] ([id number]) [address], [address] [place] [address] Bilirubin [Mass/Vol] 0.3 mg/dL Normal 0.3-1.2 [facility] Comment on above: Performed By: #### C BCA, CMP, , 2776-04, 1987-08 #### [facility] ([id number]) [address], [address] [place] [address] Calcium [Mass/Vol] 8.8 mg/dL Normal 8.5-10.5 [facility] Comment on above: Performed By: #### C VIRGILIO CMP, , 2776-04, 1987-08 #### [facility] ([id number]) [address], [address] [place] [address] Chloride [Moles/Vol] 96 mmol/L Low 98-109 [facility] Comment on above: Performed By: #### C VIRGILIO, CMP, , 2776-04, 1987-08 #### [facility] ([id number]) [address], [address] [place] [address] CO2 [Moles/Vol] 28 mmol/L Normal 22-32 [facility] Comment on above: Performed By: #### C VIRGILIO CMP, , 2776-04, 1987-08 #### [facility] ([id number]) [address], [address] [place] [address] Creatinine [Mass/Vol] 3.71 mg/dL High 0.40-1.00 [facility] Comment on above: Result Comment: METH OD TRACEABLE TO IDMS STANDARD Performed By: #### C VIRGILIO, CMP, , 2776-04, 1987-08 #### [facility] ([id number]) [address], [address] [place] [address] GFR/1.73 sq M.predicted among non-blacks MDRD (S/P/Bld) [Vol rate/Area] 13 mL/min/{1.73_m2} Low >59 [facility] Comment on above: Result Comment: Reported eGFR is based on the CKD-EPI 2020 equation that does not use a race coefficient. Performed By: #### C BCA, CMP, , 2776-04, 1987-08 #### [facility] ([id number]) [address], [address] [place] [address] Glucose [Mass/Vol] 131 mg/dL High 65-99 [facility] Comment on above: Performed By: #### C BCA, CMP, , 2776-04, 1987-08 #### [facility] ([id number]) [address] [place] [address] Potassium [Moles/Vol] 4.6 mmol/L Normal 3.5-5.0 [facility] Comment on above: Performed By: #### C BCA, CMP, , 2776-04, 1987-08 #### [facility] ([id number]) [address], [address] [place] [address] Protein [Mass/Vol] 5.9 g/dL Low 6.0-8.0 [facility] Comment on above: Performed By: #### C BCA, CMP, , 2776-04, 1987-08 #### [facility] ([id number]) [address] [place] [address] Sodium [Moles/Vol] 136 mmol/L Normal 134-146 [facility] Comment on above: Performed By: #### C BCA, CMP, , 2776-04, 1987-08 #### [facility] ([id number]) [address] [place] [address] Urea nitrogen [Mass/Vol] 80 mg/dL High 5-23 [facility] Comment on above: Performed By: #### C BCA, CMP, , 2776-04, 1987-08 #### [facility] ([id number]) [address] [place] [address] Calcium.ionized (Bld) [Mass/ Vol]on 10-21-2023 IONIZED CALCIUM 4.5 mg/dL Normal 4.5-5.3 [facility] Comment on above: Performed By: #### C BCA, CMP, , 2776-04, 1987-08 #### [facility] ([id number]) [address] [place] [address] MAGNESIUMon 10-21-2023 Magnesium [Mass/Vol] 2.4 mg/dL Normal 1.8-2.6 [facility] Comment on above: Performed By: #### C VIRGILIO, CMP, , 2776-04, 1987-08 #### [facility] ([id number]) [address], [address] [place] [address] PHOSPHORUSon 10-21-2023 Phosphate [Mass/Vol] 5.5 mg/dL High 2.4-4.9 [facility] Comment on above: Performed By: #### C VIRGILIO, CMP, , 2776-04, 1987-08 #### [facility] ([id number]) [address], [address] [place] [address] CBC AND AUTO DIFFon 10-20-19 24 ABSOLUTE BASOPHIL 0.0 X10E9/L Normal 0.0-0.2 [facility] Comment on above: Performed By: #### Shahla POOLE, CMP, , 2776-04, 1987-08 #### [facility] ([id number]) [address], [address] [place] [address] ABSOLUTE NEUTROPHIL 14.6 X10E9/L High 1.5-6.6 [facility] Comment on above: Performed By: #### C BCA, CMP, , 2776-04, 1987-08 #### [facility] ([id number]) [address], [address] [place] [address] Basophils/100 WBC (Bld) 0.1 % Normal [facility] Comment on above: Performed By: #### Shahla BCA, CMP, , 2776-04, 1987-08 #### [facility] ([id number]) [address], [address] [place] [address] Eosinophils (Bld) [#/Vol] 0.0 10*3/uL Normal 0.0-0.4 [facility] Comment on above: Performed By: #### Shahla POOLE CMP, , 2776-04, 1987-08 #### [facility] ([id number]) [address] [address] [place] [address] Eosinophils/100 WBC (Bld) 0.0 % Normal [facility] Comment on above: Performed By: #### C VIRGILIO CMP, , 2776-04, 1987-08 #### [facility] ([id number]) [address] [address] Erythrocyte distribution width (RBC) [Ratio] 15.3 % High 11.5-15.0 [facility] Comment on above: Performed By: #### Shahla POOLE CMP, , 2776-04, 1987-08 #### [facility] ([id number]) [address] [address] Hematocrit (Bld) [Volume fraction] 32.0 % Low 35-47 [facility] Comment on above: Performed By: #### Shahla POOLE CMP, , 2776-04, 1987-08 #### [facility] ([id number]) [address] [address] Hemoglobin (Bld) [Mass/Vol] 10.5 g/dL Low 11.7-15.5 [facility] Comment on above: Performed By: #### Shahla POOLE CMP, , 2776-04, 1987-08 #### [facility] ([id number]) [address] [address] Lymphocytes (Bld) [#/Vol] 1.7 10*3/uL Normal 1.0-3.5 [facility] Comment on above: Performed By: #### Shahla POOLE CMP, , 2776-04, 1987-08 #### [facility] ([id number]) [address], [address] [place] [address] Lymphocytes/100 WBC (Bld) 10.3 % Normal [facility] Comment on above: Performed By: #### C BCA, CMP, , 2776-04, 1987-08 #### [facility] ([id number]) [address], [address] [place] [address] MCH (RBC) [Entitic mass] 27.7 pg Normal 27-34 [facility] Comment on above: Performed By: #### C BCA, CMP, , 2776-04, 1987-08 #### [facility] ([id number]) [address], [address] [place] [address] MCHC (RBC) [Mass/Vol] 32.9 g/dL Normal 32-36 [facility] Comment on above: Performed By: #### C BCA, CMP, , 2776-04, 1987-08 #### [facility] ([id number]) [address], [address] [place] [address] MCV (RBC) [Entitic vol] 84 fL Normal 80-100 [facility] Comment on above: Performed By: #### Shahla BCA, CMP, , 2776-04, 1987-08 #### [facility] ([id number]) [address], [address] [place] [address] Monocytes (Bld) [#/Vol] 0.4 10*3/uL Normal 0-0.9 [facility] Comment on above: Performed By: #### C BCA, CMP, , 2776-04, 1987-08 #### [facility] ([id number]) [address], [address] [place] [address] Monocytes/100 WBC (Bld) 2.2 % Normal [facility] Comment on above: Performed By: #### C BCA, CMP, , 2776-04, 1987-08 #### [facility] ([id number]) [address], [address] [place] [address] Neutrophils/100 WBC (Bld) 87.4 % Normal [facility] Comment on above: Performed By: #### Shahla BCA, CMP, , 2776-04, 1987-08 #### [facility] ([id number]) [address], [address] [place] [address] Platelet mean volume (Bld) [Entitic vol] 9.3 fL Normal 7-12 [facility] Comment on above: Performed By: #### Shahla BCA, CMP, , 2776-04, 1987-08 #### [facility] ([id number]) [address], [address] [place] [address] Platelets (Bld) [#/Vol] 350 10*3/uL Normal 150-450 [facility] Comment on above: Performed By: #### Shahla BCA, CMP, , 2776-04, 1987-08 #### [facility] ([id number]) [address], [address] [place] [address] RBC COUNT 3.80 X10E12/L Normal 3.80-5.20 [facility] Comment on above: Performed By: #### Shahla BCA, CMP, , 2776-04, 1987-08 #### [facility] ([id number]) [address], [address] [place] [address] WBC (Bld) [#/Vol] 16.7 10*3/uL High 4.0-11.0 [facility] Comment on above: Performed By: #### Shahla BCA, CMP, , 2776-04, 1987-08 #### [facility] ([id number]) [address], [address] [place] [address] COMPREHENSIVE METABOLIC PANE Phu 10-20-2023 Albumin [Mass/Vol] 3.6 g/dL Normal 3.2-5.3 [facility] Comment on above: Performed By: #### C BCA, CMP, , 2776-04, 1987-08 #### [facility] ([id number]) [address], [address] [place] [address] ALP [Catalytic activity/Vol] 53 U/L Normal 39-130 [facility] Comment on above: Performed By: #### C BCA, CMP, , 2776-04, 1987-08 #### [facility] ([id number]) [address], [address] [place] [address] ALT [Catalytic activity/Vol] 14 U/L Normal 0-31 [facility] Comment on above: Performed By: #### C BCA, CMP, , 2776-04, 1987-08 #### [facility] ([id number]) [address], [address] [place] [address] Anion gap [Moles/Vol] 13 mmol/L Normal 5-15 [facility] Comment on above: Performed By: #### C BCA, CMP, , 2776-04, 1987-08 #### [facility] ([id number]) [address], [address] [place] [address] AST [Catalytic activity/Vol] 27 U/L Normal 0-41 [facility] Comment on above: Performed By: #### C BCA, CMP, , 2776-04, 1987-08 #### [facility] ([id number]) [address], [address] [place] [address] Bilirubin [Mass/Vol] 0.3 mg/dL Normal 0.3-1.2 [facility] Comment on above: Performed By: #### C BCA, CMP, , 2776-04, 1987-08 #### [facility] ([id number]) [address], [address] [place] [address] Calcium [Mass/Vol] 9.1 mg/dL Normal 8.5-10.5 [facility] Comment on above: Performed By: #### C BCA, CMP, , 2776-04, 1987-08 #### [facility] ([id number]) [address], [address] [place] [address] Chloride [Moles/Vol] 94 mmol/L Low 98-109 [facility] Comment on above: Performed By: #### C BCA, CMP, , 2776-04, 1987-08 #### [facility] ([id number]) [address], [address] [place] [address] CO2 [Moles/Vol] 28 mmol/L Normal 22-32 [facility] Comment on above: Performed By: #### C BCA, CMP, , 2776-04, 1987-08 #### [facility] ([id number]) [address], [address] [place] [address] Creatinine [Mass/Vol] 3.58 mg/dL High 0.40-1.00 [facility] Comment on above: Result Comment: METH OD TRACEABLE TO IDMS STANDARD Performed By: #### C BCA, CMP, , 2776-04, 1987-08 #### [facility] ([id number]) [address], [address] [place] [address] GFR/1.73 sq M.predicted among non-blacks MDRD (S/P/Bld) [Vol rate/Area] 14 mL/min/{1.73_m2} Low >59 [facility] Comment on above: Result Comment: Reported eGFR is based on the CKD-EPI 2020 equation that does not use a race coefficient. Performed By: #### C BCA, CMP, , 2776-04, 1987-08 #### [facility] ([id number]) [address], [address] [place] [address] Glucose [Mass/Vol] 133 mg/dL High 65-99 [facility] Comment on above: Performed By: #### C BCA, CMP, , 2776-04, 1987-08 #### [facility] ([id number]) [address], [address] [place] [address] Potassium [Moles/Vol] 4.8 mmol/L Normal 3.5-5.0 [facility] Comment on above: Performed By: #### C BCA, CMP, , 2776-04, 1987-08 #### [facility] ([id number]) [address], [address] [place] [address] Protein [Mass/Vol] 6.1 g/dL Normal 6.0-8.0 [facility] Comment on above: Performed By: #### C BCA, CMP, , 2776-04, 1987-08 #### [facility] ([id number]) [address], [address] [place] [address] Sodium [Moles/Vol] 135 mmol/L Normal 134-146 [facility] Comment on above: Performed By: #### C BCA, CMP, , 2776-04, 1987-08 #### [facility] ([id number]) [address], [address] [place] [address] Urea nitrogen [Mass/Vol] 70 mg/dL High 5-23 [facility] Comment on above: Performed By: #### C BCA, CMP, , 2776-04, 1987-08 #### [facility] ([id number]) [address], [address] [place] [address] Calcium.ionized (Bld) [Mass/ Vol]on 10-20-2023 IONIZED CALCIUM 4.6 mg/dL Normal 4.5-5.3 [facility] Comment on above: Performed By: #### C BCA, [facility], [address]-8, 2777-1, 1987- #### [facility] ([id number]) [address], [address] [place] [address] IR BIOPSY RENAL PERC RTon IR BIOPSY [...] Mann MD on 10/20/2023 3:13 PM Normal [facility] MAGNESIUMon 10-20-2023 Magnesium [Mass/Vol] 2.3 mg/dL Normal 1.8-2.6 [facility] Comment on above: Performed By: #### C BCA, CMP, , 2776-04, 1987-08 #### [facility] ([id number]) [address] [place] [address], [address] [place] [address] PHOSPHORUSon 10-20-2023 Phosphate [Mass/Vol] 6.3 mg/dL High 2.4-4.9 [facility] Comment on above: Performed By: #### C BCA, CMP, , 2776-04, 1987-08 #### [facility] ([id number]) [address] [place] [address], [address] [place] [address] Surgical Pathologyon 024 Surgical Pathology Normal [facility] Comment on above: Result Comment: [facility] [address] [place] [address] Surgical Pathology Consultation ADDENDUM CO Patient Name:DANIELLE MONTANA:1965 (Age: 58)Gender:FTaken:4Reported:4Physician(s):Wanda Mendez ([phone])Copy To:MD Natasha ROSALES M.D. Rec. #:[id number]: #[id number] Final Pathologic Diagnosis Right kidney, needle biopsy: Specimen sent to [facility]. Report Electronically Signed Out [facility]/10/24/2023Trace Meza MD Addendum ([facility]) Date Reported: 10/24/2023 Results of routine histology and immunofluorescence dated 10/24/2023 are received from Deidra Bustos M.D., [facility], [address] [place] [address] and are as follows: Final Diagnosis: Kidney, [...] ANCA-associated glomerulonephritis. J Am Soc Nephrol. 2010 Oct;21(10):1628-36. 2. Andreina Cedeño. Validating the new classification [...] addendum. Please see the complete report from [facility] in the patient's EMR. Electronically Signed Out Trace Meza MD Addendum ([facility]) Date Reported: 11/02/2023 Results of Addendum (Electron Microscopy) dated are received from Deidra Bustos M.D., [facility], [address] [place] [address] and are as follows: Paraffin-based immunofluorescence stains [...] case. Please see the complete report from [facility] in the patient's EMR. Electronically Signed Out Trace Meza MD Addendum ([facility]S) Date Reported: 11/08/2023 Results of Mass Spectrometry dated 11/07/2023 are received from Adan Yates M.D., Ph.D., [facility], [address] [place] [address] and are as follows: MASS SPECTROMETRY Liquid chromatography tandem mass spectrometry (LC MS/MS) was performed on peptides extracted from glomeruli that were microdissected from the paraffin-embedded specimen. LC MS/MS did not detect a peptide profile consistent with any of the following antigens: PLA2R, THSD7A, EXT1/EXT2, NELL1, SEMA3B, CNTN1, NCAM1, PCSK6, PCDH7, FAT1 or NDNF. Please see the complete report from [facility] (more content not included)... CBC AND AUTO DIFFon 10-19-19 24 Band form neutrophils/100 WBC (Bld) 1.0 % Normal [facility] Comment on above: Performed By: #### C EDEL POOLE, , 2776-04, 1987-08 #### [facility] ([id number]) [address] [address] [place] [address] Erythrocyte distribution width (RBC) [Ratio] 14.9 % Normal 11.5-15.0 [facility] Comment on above: Performed By: #### C VIRGILIO CMP, , 2776-04, 1987-08 #### [facility] ([id number]) [address] [address] Hematocrit (Bld) [Volume fraction] 34.4 % Low 35-47 [facility] Comment on above: Performed By: #### C VIRGILIO CMP, , 2776-04, 1987-08 #### [facility] ([id number]) [address] [address] [address] [place] [address] Hemoglobin (Bld) [Mass/Vol] 11.4 g/dL Low 11.7-15.5 [facility] Comment on above: Performed By: #### C BCA CMP, , 2776-04, 1987-08 #### [facility] ([id number]) [address] [address] Lymphocytes (Bld) [#/Vol] 1.9 10*3/uL Normal 1.0-3.5 [facility] Comment on above: Performed By: #### C BCA, CMP, , 2776-04, 1987-08 #### [facility] ([id number]) [address], [address] [place] [address] Lymphocytes/100 WBC (Bld) 15.0 % Normal [facility] Comment on above: Performed By: #### C BCA, CMP, , 2776-04, 1987-08 #### [facility] ([id number]) [address], [address] [place] [address] MCH (RBC) [Entitic mass] 27.8 pg Normal 27-34 [facility] Comment on above: Performed By: #### Shahla BCA, CMP, , 2776-04, 1987-08 #### [facility] ([id number]) [address], [address] [place] [address] MCHC (RBC) [Mass/Vol] 33.2 g/dL Normal 32-36 [facility] Comment on above: Performed By: #### Shahla BCA, CMP, , 2776-04, 1987-08 #### [facility] ([id number]) [address], [address] [place] [address] MCV (RBC) [Entitic vol] 84 fL Normal 80-100 [facility] Comment on above: Performed By: #### C BCA, CMP, , 2776-04, 1987-08 #### [facility] ([id number]) [address], [address] [place] [address] Metamyelocytes/100 WBC (Bld) 1.0 % Normal [facility] Comment on above: Performed By: #### Shahla BCA, CMP, , 2776-04, 1987-08 #### [facility] ([id number]) [address], [address] [place] [address] Monocytes (Bld) [#/Vol] 0.1 10*3/uL Normal 0-0.9 [facility] Comment on above: Performed By: #### C BCA, CMP, , 2776-04, 1987-08 #### [facility] ([id number]) [address], [address] [place] [address] Monocytes/100 WBC (Bld) 1.0 % Normal [facility] Comment on above: Performed By: #### Shahla POOLE, CMP, , 2776-04, 1987-08 #### [facility] ([id number]) [address], [address] [place] [address] Neutrophils (Bld) [#/Vol] 10.4 10*3/uL High 1.5-6.6 [facility] Comment on above: Performed By: #### Shahla BCA, CMP, , 2776-04, 1987-08 #### [facility] ([id number]) [address], [address] [place] [address] Platelet mean volume (Bld) [Entitic vol] 9.3 fL Normal 7-12 [facility] Comment on above: Performed By: #### Shahla POOLE, CMP, , 2776-04, 1987-08 #### [facility] ([id number]) [address], [address] [place] [address] Platelets (Bld) [#/Vol] 324 10*3/uL Normal 150-450 [facility] Comment on above: Performed By: #### Shahla BCA, CMP, , 2776-04, 1987-08 #### [facility] ([id number]) [address], [address] [place] [address] POLYCHROMASIA 1+ Abnormal NONE [facility] Comment on above: Performed By: #### Shahla BCA, CMP, , 2776-04, 1987-08 #### [facility] ([id number]) [address], [address] [place] [address] RBC COUNT 4.09 X10E12/L Normal 3.80-5.20 [facility] Comment on above: Performed By: #### C BCA, CMP, , 2776-04, 1987-08 #### [facility] ([id number]) [address], [address] [place] [address] SEG NEUTROPHIL 82.0 % Normal [facility] Comment on above: Performed By: #### C BCA, CMP, , 2776-04, 1987-08 #### [facility] ([id number]) [address], [address] [place] [address] WBC (Bld) [#/Vol] 12.5 10*3/uL High 4.0-11.0 [facility] Comment on above: Performed By: #### C BCA, CMP, , 2776-04, 1987-08 #### [facility] ([id number]) [address], [address] [place] [address] COMPREHENSIVE METABOLIC PANE Phu 10-19-2023 Albumin [Mass/Vol] 3.7 g/dL Normal 3.2-5.3 [facility] Comment on above: Performed By: #### C BCA, CMP, , 2776-04, 1987-08 #### [facility] ([id number]) [address], [address] [place] [address] ALP [Catalytic activity/Vol] 58 U/L Normal 39-130 [facility] Comment on above: Performed By: #### C BCA, CMP, , 2776-04, 1987-08 #### [facility] ([id number]) [address], [address] [place] [address] ALT [Catalytic activity/Vol] 10 U/L Normal 0-31 [facility] Comment on above: Performed By: #### C BCA, CMP, , 2776-04, 1987-08 #### [facility] ([id number]) [address], [address] [place] [address] Anion gap [Moles/Vol] 13 mmol/L Normal 5-15 [facility] Comment on above: Performed By: #### C BCA, CMP, , 2776-04, 1987-08 #### [facility] ([id number]) [address], [address] [place] [address] AST [Catalytic activity/Vol] 17 U/L Normal 0-41 [facility] Comment on above: Performed By: #### C BCA, CMP, , 2776-04, 1987-08 #### [facility] ([id number]) [address], [address] [place] [address] Bilirubin [Mass/Vol] 0.3 mg/dL Normal 0.3-1.2 [facility] Comment on above: Performed By: #### C BCA, CMP, , 2776-04, 1987-08 #### [facility] ([id number]) [address], [address] [place] [address] Calcium [Mass/Vol] 9.9 mg/dL Normal 8.5-10.5 [facility] Comment on above: Performed By: #### C BCA, CMP, , 2776-04, 1987-08 #### [facility] ([id number]) [address], [address] [place] [address] Chloride [Moles/Vol] 95 mmol/L Low 98-109 [facility] Comment on above: Performed By: #### C BCA, CMP, , 2776-04, 1987-08 #### [facility] ([id number]) [address], [address] [place] [address] CO2 [Moles/Vol] 28 mmol/L Normal 22-32 [facility] Comment on above: Performed By: #### C EDEL POOLE, , 2776-04, 1987-08 #### [facility] ([id number]) [address], [address] [place] [address] Creatinine [Mass/Vol] 3.62 mg/dL High 0.40-1.00 [facility] Comment on above: Result Comment: METH OD TRACEABLE TO IDMS STANDARD Performed By: #### C EDEL POOLE, , 2776-04, 1987-08 #### [facility] ([id number]) [address], [address] [place] [address] GFR/1.73 sq M.predicted among non-blacks MDRD (S/P/Bld) [Vol rate/Area] 14 mL/min/{1.73_m2} Low >59 [facility] Comment on above: Result Comment: Reported eGFR is based on the CKD-EPI 2020 equation that does not use a race coefficient. Performed By: #### C EDEL POOLE, , 2776-04, 1987-08 #### [facility] ([id number]) [address], [address] [place] [address] Glucose [Mass/Vol] 146 mg/dL High 65-99 [facility] Comment on above: Performed By: #### C EDEL POOLE, , 2776-04, 1987-08 #### [facility] ([id number]) [address], [address] [place] [address] Potassium [Moles/Vol] 5.2 mmol/L High 3.5-5.0 [facility] Comment on above: Performed By: #### C VIRGILIO CMP, , 2776-04, 1987-08 #### [facility] ([id number]) [address], [address] [place] [address] Protein [Mass/Vol] 6.4 g/dL Normal 6.0-8.0 [facility] Comment on above: Performed By: #### C BCA, CMP, , 2776-04, 1987-08 #### [facility] ([id number]) [address], [address] [place] [address] Sodium [Moles/Vol] 136 mmol/L Normal 134-146 [facility] Comment on above: Performed By: #### C BCA, CMP, , 2776-04, 1987-08 #### [facility] ([id number]) [address] [place] [address] Urea nitrogen [Mass/Vol] 53 mg/dL High 5-23 [facility] Comment on above: Performed By: #### C BCA, CMP, , 2776-04, 1987-08 #### [facility] ([id number]) [address] [place] [address] CRP [Mass/Vol]on 10-19-2023 C REACTIVE PROTEIN 0.9 mg/dL High 0.000-0.744 [facility] Comment on above: Performed By: #### C BCA, CMP, , 2776-04, 1987-08 #### [facility] ([id number]) [address] [place] [address] Calcium.ionized (Bld) [Mass/ Vol]on 10-19-2023 IONIZED CALCIUM 4.6 mg/dL Normal 4.5-5.3 [facility] Comment on above: Performed By: #### 3 8230-9 #### [facility] ([id number]) [address], [address] [place] [address] IMMUNOGLOBULINSon 10-19-2023 IgA [Mass/Vol] 109 mg/dL Normal 68-378 [facility] Comment on above: Performed By: #### P INR, 02245-4, IMGB #### [facility] ([id number]) [address], [address] [place] [address] IgG [Mass/Vol] 460 mg/dL Low 635-1741 [facility] Comment on above: Performed By: #### P INR, 87247-9, IMGB #### [facility] ([id number]) [address], [address] [place] [address] IgM [Mass/Vol] 98 mg/dL Normal 45-281 [facility] Comment on above: Performed By: #### P INR, 20889-5, IMGB #### [facility] ([id number]) [address] [place] [address] MAGNESIUMon 10-19-2023 Magnesium [Mass/Vol] 2.0 mg/dL Normal 1.8-2.6 [facility] Comment on above: Performed By: #### C BCA, CMP, , 2776-04, 1987-08 #### [facility] ([id number]) [address], [address] [place] [address] PHOSPHORUSon 10-19-2023 Phosphate [Mass/Vol] 4.8 mg/dL Normal 2.4-4.9 [facility] Comment on above: Performed By: #### C BCA, CMP, , 2776-04, 1987-08 #### [facility] ([id number]) [address], [address] [place] [address] PLATELET FUNCTIONon 10-19-19 24 COLLAGEN/ADP 72 sec Normal 0-114 [facility] Comment on above: Performed By: #### P FA, PINR, 47856-3 #### [facility] ([id number]) [address], [address] [place] [address] COLLAGEN/EPINEPHRINE 81 sec Normal 0-179 [facility] Comment on above: Performed By: #### P FA, PINR, 79238-6 #### [facility] ([id number]) [address], [address] [place] [address] PFA INTERP Platelet function is normal. If patient Normal [facility] Comment on above: Result Comment: hist ory/physical examination gives strong indication of a bleeding disorder, consider testing for other etiologies. Performed By: #### P FA, PINR, 67519-7 #### [facility] ([id number]) [address], [address] [place] [address] PROTIME AND INRon 10-19-2023 INR Coag (PPP) [Relative time] 0.9 {INR} Normal 0.8-1.1 [facility] Comment on above: Performed By: #### C VIRGILIO [facility], , 2776-04, 1987-08 #### [facility] ([id number]) [address], [address] [place] [address] PT Coag (PPP) [Time] 10.4 s Normal 9.8-13.2 [facility] Comment on above: Performed By: #### C BCA, CMP, , 2776-04, 1987-08 #### [facility] ([id number]) [address], [address] [place] [address] INR Coag (PPP) [Relative time] 0.9 {INR} Normal 0.8-1.1 [facility] Comment on above: Performed By: #### P INR, 25099-9, IMGB #### [facility] ([id number]) [address], [address] [place] [address] PT Coag (PPP) [Time] 10.4 s Normal 9.8-13.2 [facility] Comment on above: Performed By: #### P INR, 45314-4, IMGB #### [facility] ([id number]) [address], [address] [place] [address] aPTT Coag (PPP) [Time]on aPTT Coag (Bld) [Time] 40 s High 26-37 [facility] Comment on above: Performed By: #### C BCA, CMP, 17909-5, 2776-, 1987- #### [facility] ([id number]) [address] [place] [address] aPTT Coag (Bld) [Time] 34 s Normal -37 [facility] Comment on above: Performed By: #### P INR, 41933-2, IMGB #### [facility] ([id number]) [address], [address] [place] [address] Basement membrane IgG Qn (S) on 10-18-2023 Glomerular Base Memb IgG <0.2 Normal <1.0 (Negative) [facility] Comment on above: Result Comment: NOTE Test Performed by: [place] [address] Remote Sensing Analyst: Ledy Son Ph.D.; CLIA# [id number] Performed By: #### 8 9579-7 #### [facility] ([id number]) [address] [place] [address] CBC AND AUTO DIFFon 10-18-19 24 ABSOLUTE BASOPHIL 0.1 X10E9/L Normal 0.0-0.2 [facility] Comment on above: Performed By: #### C BCA, CMP, , 27710-22 ####[facility] ([id number])[address] [place] [address] ABSOLUTE NEUTROPHIL 4.5 X10E9/L Normal 1.5-6.6 [facility] Comment on above: Performed By: #### C BCA, CMP, , 27710-22 ####[facility] ([id number])[address] [place] [address] 66528 Basophils/100 WBC (Bld) 1.0 % Normal [facility] Comment on above: Performed By: #### Shahla POOLE CMP, , 2776-04 ####[facility] ([id number])[address] [place] [address] 54181 Eosinophils (Bld) [#/Vol] 0.4 10*3/uL Normal 0.0-0.4 [facility] Comment on above: Performed By: #### Shahla POOLE CMP, , 2776-04 ####[facility] ([id number])[address] [place] [address] 36454 Eosinophils/100 WBC (Bld) 5.1 % Normal [facility] Comment on above: Performed By: #### Shahla POOLE CMP, , 2776-04 ####[facility] ([id number])[address] [place] [address] 25252 Erythrocyte distribution width (RBC) [Ratio] 15.0 % Normal 11.5-15.0 [facility] Comment on above: Performed By: #### Shahla POOLE CMP, , 2776-04 ####[facility] ([id number])[address] [place] [address] 01376 Hematocrit (Bld) [Volume fraction] 31.7 % Low 35-47 [facility] Comment on above: Performed By: #### Shahla POOLE CMP, , 2776-04 ####[facility] ([id number])[address] [place] [address] 58943 Hemoglobin (Bld) [Mass/Vol] 10.5 g/dL Low 11.7-15.5 [facility] Comment on above: Performed By: #### Shahla POOLE CMP, , 2776-04 ####[facility] ([id number])[address] [place] [address] 15825 Lymphocytes (Bld) [#/Vol] 2.1 10*3/uL Normal 1.0-3.5 [facility] Comment on above: Performed By: #### Shahla POOLE CMP, , 2776-04 ####[facility] ([id number])[address] [place] [address] 56935 Lymphocytes/100 WBC (Bld) 27.3 % Normal [facility] Comment on above: Performed By: #### Shahla POOLE, CMP, , 2776-04 ####[facility] ([id number])[address] [place] [address] 52204 MCH (RBC) [Entitic mass] 27.7 pg Normal 27-34 [facility] Comment on above: Performed By: #### Shahla POOLE, CMP, , 2776-04 ####[facility] ([id number])[address] [place] [address] 80971 MCHC (RBC) [Mass/Vol] 33.1 g/dL Normal 32-36 [facility] Comment on above: Performed By: #### Shahla POOLE CMP, , 2776-04 ####[facility] ([id number])[address] [place] [address] 03809 MCV (RBC) [Entitic vol] 84 fL Normal 80-100 [facility] Comment on above: Performed By: #### Shahla BCA, CMP, , 2776-04 ####[facility] ([id number])[address] [place] [address] 74268 Monocytes (Bld) [#/Vol] 0.7 10*3/uL Normal 0-0.9 [facility] Comment on above: Performed By: #### Shahla POOLE, CMP, , 2777-1 ####[facility] ([id number])[address] [place] [address] 46825 Monocytes/100 WBC (Bld) 9.1 % Normal [facility] Comment on above: Performed By: #### C BCA, CMP, , 2776-04 ####[facility] ([id number])[address] [place] [address] 98786 Neutrophils/100 WBC (Bld) 57.5 % Normal [facility] Comment on above: Performed By: #### C VIRGILIO, CMP, , 2776-04 ####[facility] ([id number])[address] [place] [address] 69911 Platelet mean volume (Bld) [Entitic vol] 8.9 fL Normal 7-12 [facility] Comment on above: Performed By: #### Shahla BCA, CMP, , 2776-04 ####[facility] ([id number])[address] [place] [address] 04810 Platelets (Bld) [#/Vol] 328 10*3/uL Normal 150-450 [facility] Comment on above: Performed By: #### Shahla BCA, CMP, , 2776-04 ####[facility] ([id number])[address] [place] [address] 89488 RBC COUNT 3.77 X10E12/L Low 3.80-5.20 [facility] Comment on above: Performed By: #### C BCA, CMP, , 2776-04 ####[facility] ([id number])[address] [place] [address] 31026 WBC (Bld) [#/Vol] 7.8 10*3/uL Normal 4.0-11.0 [facility] Comment on above: Performed By: #### Shahla BCA, CMP, , 2776-04 ####[facility] ([id number])[address] [place] [address] [place] [address] COMPREHENSIVE METABOLIC PANE Phu 10-18-2023 Albumin [Mass/Vol] 3.1 g/dL Low 3.2-5.3 [facility] Comment on above: Performed By: #### C BCA, CMP, , 2776-04 ####[facility] ([id number])[address] [place] [address] [place] [address] ALP [Catalytic activity/Vol] 57 U/L Normal 39-130 [facility] Comment on above: Performed By: #### C BCA, CMP, , 2776-04 ####[facility] ([id number])[address] [place] [address] 06582 ALT [Catalytic activity/Vol] 10 U/L Normal 0-31 [facility] Comment on above: Performed By: #### C BCA, CMP, , 2776-04 ####[facility] ([id number])[address] [place] [address] 59416 Anion gap [Moles/Vol] 11 mmol/L Normal 5-15 [facility] Comment on above: Performed By: #### C BCA, CMP, , 2776-04 ####[facility] ([id number])[address] [place] [address] 60954 AST [Catalytic activity/Vol] 14 U/L Normal 0-41 [facility] Comment on above: Performed By: #### C BCA, CMP, , 2776-04 ####[facility] ([id number])[address] [place] [address] 20493 Bilirubin [Mass/Vol] 0.7 mg/dL Normal 0.3-1.2 [facility] Comment on above: Performed By: #### C BCA, CMP, , 2776-04 ####[facility] ([id number])[address] [place] [address] 51418 Calcium [Mass/Vol] 9.3 mg/dL Normal 8.5-10.5 [facility] Comment on above: Performed By: #### C BCA, CMP, , 2776-04 ####[facility] ([id number])[address] [place] [address] 81321 Chloride [Moles/Vol] 97 mmol/L Low 98-109 [facility] Comment on above: Performed By: #### C BCA, CMP, , 2776-04 ####[facility] ([id number])[address] [place] [address] 09384 CO2 [Moles/Vol] 29 mmol/L Normal 22-32 [facility] Comment on above: Performed By: #### C BCA, CMP, , 2776-04 ####[facility] ([id number])[address] [place] [address] 59990 Creatinine [Mass/Vol] 2.98 mg/dL High 0.40-1.00 [facility] Comment on above: Result Comment: METH OD TRACEABLE TO IDMS STANDARD Performed By: #### C BCA, CMP, , 2776-04 ####[facility] ([id number])[address] [place] [address] 48070 GFR/1.73 sq M.predicted among non-blacks MDRD (S/P/Bld) [Vol rate/Area] 18 mL/min/{1.73_m2} Low >59 [facility] Comment on above: Result Comment: Reported eGFR is based on the CKD-EPI 2020 equation that does not use a race coefficient. Performed By: #### C BCA, CMP, , 2776-04 ####[facility] ([id number])[address], [place] [address] Glucose [Mass/Vol] 92 mg/dL Normal 65-99 [facility] Comment on above: Performed By: #### C VIRGILIO CMP, , 2776-04 ####[facility] ([id number])[address] [place] [address] 24315 Potassium [Moles/Vol] 4.2 mmol/L Normal 3.5-5.0 [facility] Comment on above: Performed By: #### C VIRGILIO, CMP, , 2776-04 ####[facility] ([id number])[address] [place] [address] 45409 Protein [Mass/Vol] 6.0 g/dL Normal 6.0-8.0 [facility] Comment on above: Performed By: #### C VIRGILIO CMP, , 2776-04 ####[facility] ([id number])[address] [place] [address] 71020 Sodium [Moles/Vol] 137 mmol/L Normal 134-146 [facility] Comment on above: Performed By: #### C VIRGILIO, CMP, , 2776-04 ####[facility] ([id number])[address] [place] [address] 34861 Urea nitrogen [Mass/Vol] 37 mg/dL High 5-23 [facility] Comment on above: Performed By: #### C VIRGILIO, CMP, , 2776-04 ####[facility] ([id number])[address] [place] [address] 17058 Calcium.ionized (Bld) [Moles /Vol]on 10-18-2023 PORTABLE ICA 4.7 mg/dL Normal 4.5-5.3 [facility] Comment on above: Performed By: #### 8 9579-7 #### [facility] ([id number]) [address] [place] [address] [place] [address] MAGNESIUMon 10-18-2023 Magnesium [Mass/Vol] 2.0 mg/dL Normal 1.8-2.6 [facility] Comment on above: Performed By: #### C VIRGILIO, CMP, , 2777-1 ####[facility] ([id number])[address] [place] [address] 00587 Myeloperoxidase IgG Qn (S)on 10-18-2023 Myeloperoxidase IgG >8.0 High <0.4 (Negative) [facility] Comment on above: Result Comment: NOTE Interpretation: Positive (>=1.0) Test Performed by: [facility] [address] [place] [address] Remote Sensing Analyst: Ledy Son Ph.D.; CLIA# [id number] Performed By: #### 8 9579-7 #### [facility] ([id number]) [address] [place] [address] 88019 PHOSPHORUSon 10-18-2023 Phosphate [Mass/Vol] 5.1 mg/dL High 2.4-4.9 [facility] Comment on above: Performed By: #### C VIRGILIO, CMP, , 2777-1 ####[facility] ([id number])[address] [place] [address] 44279 CBC AND AUTO DIFFon 10-17-19 ABSOLUTE BASOPHIL 0.1 X10E9/L Normal 0.0-0.2 [facility] Comment on above: Performed By: #### C BCA, BMP, , 03104-1, 64256-0 #### [facility] ([id number]) [address] [place] [address] 02187 ABSOLUTE NEUTROPHIL 4.9 X10E9/L Normal 1.5-6.6 [facility] Comment on above: Performed By: #### C BCA, BMP, , 27526-4, 49930-7 #### [facility] ([id number]) [address] [place] [address] 75701 Basophils/100 WBC (Bld) 0.7 % Normal [facility] Comment on above: Performed By: #### C VIRGILIO, BMP, , 78917-4, 40523-7 #### [facility] ([id number]) [address] [place] [address] 36982 Eosinophils (Bld) [#/Vol] 0.3 10*3/uL Normal 0.0-0.4 [facility] Comment on above: Performed By: #### C VIRGILIO, BMP, , 33680-3, 81959-4 #### [facility] ([id number]) [address] [place] [address] 12907 Eosinophils/100 WBC (Bld) 4.3 % Normal [facility] Comment on above: Performed By: #### C VIRGILIO, BMP, , 49343-3, 28046-3 #### [facility] ([id number]) [address] [place] [address] 98393 Erythrocyte distribution width (RBC) [Ratio] 14.7 % Normal 11.5-15.0 [facility] Comment on above: Performed By: #### C VIRGILIO, BMP, , 87462-0, 48861-8 #### [facility] ([id number]) [address] [place] [address] 28912 Hematocrit (Bld) [Volume fraction] 30.3 % Low 35-47 [facility] Comment on above: Performed By: #### C VIRGILIO, BMP, , 71237-3, 79354-8 #### [facility] ([id number]) [address] [place] [address] 19014 Hemoglobin (Bld) [Mass/Vol] 10.1 g/dL Low 11.7-15.5 [facility] Comment on above: Performed By: #### C BCA, BMP, 34224-8, 68371-6, 63310-7 #### [facility] ([id number]) [address] [place] [address] 51179 Lymphocytes (Bld) [#/Vol] 1.9 10*3/uL Normal 1.0-3.5 [facility] Comment on above: Performed By: #### C BCA, BMP, 79193-2, 48394-6, 75054-7 #### [facility] ([id number]) [address] [place] [address] 69795 Lymphocytes/100 WBC (Bld) 24.6 % Normal [facility] Comment on above: Performed By: #### C BCA, BMP, 76506-3, 51337-6, 72198-5 #### [facility] ([id number]) [address] [place] [address] 94641 MCH (RBC) [Entitic mass] 27.9 pg Normal 27-34 [facility] Comment on above: Performed By: #### C BCA, BMP, 82591-7, 48392-0, 47173-7 #### [facility] ([id number]) [address] [place] [address] 39200 MCHC (RBC) [Mass/Vol] 33.4 g/dL Normal 32-36 [facility] Comment on above: Performed By: #### C BCA, BMP, 78662-5, 14108-3, 13160-0 #### [facility] ([id number]) [address] [place] [address] 39645 MCV (RBC) [Entitic vol] 84 fL Normal 80-100 [facility] Comment on above: Performed By: #### C BCA, BMP, 41483-1, 96585-5, 15165-5 #### [facility] ([id number]) [address] [place] [address] 64575 Monocytes (Bld) [#/Vol] 0.6 10*3/uL Normal 0-0.9 [facility] Comment on above: Performed By: #### C BCA, BMP, 12996-7, 79718-8, 14418-4 #### [facility] ([id number]) [address] [place] [address] 67321 Monocytes/100 WBC (Bld) 8.3 % Normal [facility] Comment on above: Performed By: #### C VIRGILIO, BMP, 60247-4, 72655-9, 03256-6 #### [facility] ([id number]) [address] [place] [address] 89805 Neutrophils/100 WBC (Bld) 62.1 % Normal [facility] Comment on above: Performed By: #### Shahla POOLE, BMP, 57560-5, 31873-3, 71629-8 #### [facility] ([id number]) [address] [place] [address] 76532 Platelet mean volume (Bld) [Entitic vol] 9.0 fL Normal 7-12 [facility] Comment on above: Performed By: #### Shahla POOLE, BMP, 98326-1, 34023-0, 73264-0 #### [facility] ([id number]) [address] [place] [address] 65292 Platelets (Bld) [#/Vol] 278 10*3/uL Normal 150-450 [facility] Comment on above: Performed By: #### Shahla BCA, BMP, 16821-1, 98352-8, 57446-6 #### [facility] ([id number]) [address] [place] [address] 34719 RBC COUNT 3.62 X10E12/L Low 3.80-5.20 [facility] Comment on above: Performed By: #### C BCA, BMP, 20430-0, 46085-3, 15407-2 #### [facility] ([id number]) [address] [place] [address] 52088 WBC (Bld) [#/Vol] 7.9 10*3/uL Normal 4.0-11.0 [facility] Comment on above: Performed By: #### C BCA, BMP, 48622-2, 41941-6, 53862-2 #### [facility] ([id number]) [address] [place] [address] 47127 COMPREHENSIVE METABOLIC PANE Phu 10-17-2023 Albumin [Mass/Vol] 3.0 g/dL Low 3.2-5.3 [facility] Comment on above: Performed By: #### C BCA, BMP, 76212-0, 29595-2, 52244-1 #### [facility] ([id number]) [address] [place] [address] 66853 ALP [Catalytic activity/Vol] 56 U/L Normal 39-130 [facility] Comment on above: Performed By: #### C BCA, BMP, 31309-6, 24379-9, 09498-4 #### [facility] ([id number]) [address] [place] [address] 15285 ALT [Catalytic activity/Vol] 10 U/L Normal 0-31 [facility] Comment on above: Performed By: #### C BCA, BMP, 86202-4, 65003-4, 17903-5 #### [facility] ([id number]) [address] [place] [address] 08589 Anion gap [Moles/Vol] 10 mmol/L Normal 5-15 [facility] Comment on above: Performed By: #### C BCA, BMP, 78936-4, 58430-7, 49142-4 #### [facility] ([id number]) [address] [place] [address] 57238 AST [Catalytic activity/Vol] 14 U/L Normal 0-41 [facility] Comment on above: Performed By: #### C BCA, BMP, 80203-5, 53013-9, 07326-0 #### [facility] ([id number]) [address] [place] [address] 27503 Bilirubin [Mass/Vol] 0.7 mg/dL Normal 0.3-1.2 [facility] Comment on above: Performed By: #### C BCA, BMP, 77331-5, 62986-2, 78279-1 #### [facility] ([id number]) [address] [place] [address] 69272 Calcium [Mass/Vol] 8.8 mg/dL Normal 8.5-10.5 [facility] Comment on above: Performed By: #### C BCA, BMP, 03489-4, 30230-5, 76034-1 #### [facility] ([id number]) [address] [place] [address] 40830 Chloride [Moles/Vol] 101 mmol/L Normal 98-109 [facility] Comment on above: Performed By: #### C BCA, BMP, , 05280-2, 23990-3 #### [facility] ([id number]) [address] [place] [address] 01877 CO2 [Moles/Vol] 28 mmol/L Normal 22-32 [facility] Comment on above: Performed By: #### C BCA, BMP, 68316-4, 15378-5, 92704-3 #### [facility] ([id number]) [address] [place] [address] 51696 Creatinine [Mass/Vol] 2.77 mg/dL High 0.40-1.00 [facility] Comment on above: Result Comment: METH OD TRACEABLE TO IDMS STANDARD Performed By: #### C BCA, BMP, 78655-8, 35550-1, 53643-2 #### [facility] ([id number]) [address] [place] [address] 52996 GFR/1.73 sq M.predicted among non-blacks MDRD (S/P/Bld) [Vol rate/Area] 19 mL/min/{1.73_m2} Low >59 [facility] Comment on above: Result Comment: Reported eGFR is based on the CKD-EPI 2020 equation that does not use a race coefficient. Performed By: #### C BCA, BMP, 58994-2, 87269-9, 48367-1 #### [facility] ([id number]) [address] [place] [address] 82173 Glucose [Mass/Vol] 97 mg/dL Normal 65-99 [facility] Comment on above: Performed By: #### C BCA, BMP, 39189-9, 27595-2, 32902-2 #### [facility] ([id number]) [address] [place] [address] 17329 Potassium [Moles/Vol] 3.6 mmol/L Normal 3.5-5.0 [facility] Comment on above: Performed By: #### C BCA, BMP, 06094-8, 78098-9, 92835-9 #### [facility] ([id number]) [address] [place] [address] 94582 Protein [Mass/Vol] 5.7 g/dL Low 6.0-8.0 [facility] Comment on above: Performed By: #### C BCA, BMP, 24213-4, 60243-5, 90213-4 #### [facility] ([id number]) [address] [place] [address] 45465 Sodium [Moles/Vol] 139 mmol/L Normal 134-146 [facility] Comment on above: Performed By: #### C BCA, BMP, 01507-5, 52868-4, 11662-5 #### [facility] ([id number]) [address] [place] [address] 81553 Urea nitrogen [Mass/Vol] 26 mg/dL High 5-23 [facility] Comment on above: Performed By: #### C MARIO POOLE, 10362-3, 85727-2, 59747-9 #### [facility] ([id number]) [address] [place] [address] 46774 Calcium.ionized (Bld) [Moles /Vol]on 10-17-2023 PORTABLE ICA 4.7 mg/dL Normal 4.5-5.3 [facility] Comment on above: Performed By: #### C MARIO POOLE, 80566-0, 33380-0, 46659-0 #### [facility] ([id number]) [address] [place] [address] 09529 FECAL OCCULT BLOODon 024 Hemoglobin.gastrointe stinal Ql (Stl) Negative Normal NEG [facility] Comment on above: Performed By: #### 2 335-8 ####[facility] ([id number])[address] [place] [address] 62953 MAGNESIUMon 10-17-2023 Magnesium [Mass/Vol] 2.0 mg/dL Normal 1.8-2.6 [facility] Comment on above: Performed By: #### C MARIO POOLE, 93593-9, 52201-9, 75093-9 #### [facility] ([id number]) [address] [place] [address] 41507 NM VENTILATION PERFUSION CHAZ G SCANon 10-17-2023 [...] Lowery MD on 10/17/2023 9:13 AM Normal [facility] PHOSPHORUSon 10-17-2023 Phosphate [Mass/Vol] 4.1 mg/dL Normal 2.4-4.9 [facility] Comment on above: Performed By: #### C VIRGILIO, BMP, 86760-4, 50942-0, 69615-0 #### [facility] ([id number]) [address] [place] [address] POTASSIUMon 10-17-2023 Potassium [Moles/Vol] 4.2 mmol/L Normal 3.5-5.0 [facility] Comment on above: Performed By: #### 2 823-3 ####[facility] ([id number])[address] [place] [address] 81817 THYROID PROFILEon 10-17-2023 Free T4 [Mass/Vol] 1.19 ng/dL Normal 0.61-1.60 [facility] Comment on above: Performed By: #### C BCA, BMP, , 68347-6, 84153-8 #### [facility] ([id number]) [address] [place] [address] 00440 TSH 2.17 uIU/mL Normal 0.49-4.67 [facility] Comment on above: Performed By: #### C BCA, BMP, 37306-6, 92135-0, 92031-8 #### [facility] ([id number]) [address] [place] [address] 69976 24 HR URINE CREATININEon URINE CREATININE 1.38 g/24h Normal 0.80-1.80 [facility] Comment on above: Performed By: #### U CR, UPRO ####[facility] ([id number])[address], [place] [address] 24 HR URINE TOTAL PROTEINon 10-16-2023 URINE TOTAL PROTEIN 6380 mg/24h High 0-150 [facility] Comment on above: Performed By: #### U CR, UPRO ####[facility] ([id number])[address], [place] [address] CBC AND AUTO DIFFon 10-16-19 24 ABSOLUTE BASOPHIL 0.0 X10E9/L Normal 0.0-0.2 [facility] Comment on above: Performed By: #### C BCA, BMP, 87136-4, 27746-5, 00676-5 #### [facility] ([id number]) [address] [place] [address] 06663 ABSOLUTE NEUTROPHIL 4.9 X10E9/L Normal 1.5-6.6 [facility] Comment on above: Performed By: #### C BCA, BMP, 75775-8, 83106-4, 10660-7 #### [facility] ([id number]) [address] [place] [address] 15508 Basophils/100 WBC (Bld) 0.6 % Normal [facility] Comment on above: Performed By: #### C BCA, BMP, 72827-5, 10692-2, 71341-6 #### [facility] ([id number]) [address] [place] [address] 75362 Eosinophils (Bld) [#/Vol] 0.3 10*3/uL Normal 0.0-0.4 [facility] Comment on above: Performed By: #### C BCA, BMP, 69724-4, 74620-6, 35272-8 #### [facility] ([id number]) [address] [place] [address] 19260 Eosinophils/100 WBC (Bld) 4.2 % Normal [facility] Comment on above: Performed By: #### C BCA, BMP, 00834-7, 70422-8, 96831-7 #### [facility] ([id number]) [address] [place] [address] 68799 Erythrocyte distribution width (RBC) [Ratio] 14.8 % Normal 11.5-15.0 [facility] Comment on above: Performed By: #### C BCA, BMP, 94961-3, 79349-9, 69567-4 #### [facility] ([id number]) [address] [place] [address] 46581 Hematocrit (Bld) [Volume fraction] 28.5 % Low 35-47 [facility] Comment on above: Performed By: #### C BCA, BMP, 20596-3, 08532-2, 23063-6 #### [facility] ([id number]) [address] [place] [address] 38890 Hemoglobin (Bld) [Mass/Vol] 9.5 g/dL Low 11.7-15.5 [facility] Comment on above: Performed By: #### C BCA, BMP, 74244-9, 11768-5, 41399-0 #### [facility] ([id number]) [address] [place] [address] 10752 Lymphocytes (Bld) [#/Vol] 2.1 10*3/uL Normal 1.0-3.5 [facility] Comment on above: Performed By: #### C BCA, BMP, 20561-7, 64545-6, 81356-6 #### [facility] ([id number]) [address] [place] [address] 61674 Lymphocytes/100 WBC (Bld) 26.6 % Normal [facility] Comment on above: Performed By: #### C BCA, BMP, 58446-6, 48335-2, 63878-2 #### [facility] ([id number]) [address] [place] [address] 53711 MCH (RBC) [Entitic mass] 27.7 pg Normal 27-34 [facility] Comment on above: Performed By: #### C VIRGILIO, BMP, , 22818-4, 19789-6 #### [facility] ([id number]) [address] [place] [address] 75633 MCHC (RBC) [Mass/Vol] 33.6 g/dL Normal 32-36 [facility] Comment on above: Performed By: #### C VIRGILIO, BMP, , 62565-1, 58828-4 #### [facility] ([id number]) [address] [place] [address] 76439 MCV (RBC) [Entitic vol] 83 fL Normal 80-100 [facility] Comment on above: Performed By: #### Shahla POOLE, BMP, , 70195-5, 57966-3 #### [facility] ([id number]) [address] [place] [address] 91866 Monocytes (Bld) [#/Vol] 0.7 10*3/uL Normal 0-0.9 [facility] Comment on above: Performed By: #### Shahla POOLE, BMP, , 00939-3, 70943-4 #### [facility] ([id number]) [address] [place] [address] 46407 Monocytes/100 WBC (Bld) 8.2 % Normal [facility] Comment on above: Performed By: #### Shahla POOLE, BMP, , 27674-5, 70749-6 #### [facility] ([id number]) [address] [place] [address] 17982 Neutrophils/100 WBC (Bld) 60.4 % Normal [facility] Comment on above: Performed By: #### Shahla POOLE, BMP, 77669-5, 08390-8, 03294-6 #### [facility] ([id number]) [address] [place] [address] 55775 Platelet mean volume (Bld) [Entitic vol] 8.9 fL Normal 7-12 [facility] Comment on above: Performed By: #### C BCA, BMP, 96994-4, 67753-4, 88700-3 #### [facility] ([id number]) [address] [place] [address] 43389 Platelets (Bld) [#/Vol] 252 10*3/uL Normal 150-450 [facility] Comment on above: Performed By: #### C BCA, BMP, , 48339-4, 05705-2 #### [facility] ([id number]) [address] [place] [address] 05857 RBC COUNT 3.45 X10E12/L Low 3.80-5.20 [facility] Comment on above: Performed By: #### C BCA, BMP, , 83286-9, 27662-3 #### [facility] ([id number]) [address] [place] [address] 15599 WBC (Bld) [#/Vol] 8.0 10*3/uL Normal 4.0-11.0 [facility] Comment on above: Performed By: #### C BCA, BMP, 75612-4, 64724-7, 44054-1 #### [facility] ([id number]) [address] [place] [address] 73158 COMPREHENSIVE METABOLIC PANE Phu 10-16-2023 Albumin [Mass/Vol] 2.7 g/dL Low 3.2-5.3 [facility] Comment on above: Performed By: #### C BCA, BMP, 60790-6, 12615-7, 04044-7 #### [facility] ([id number]) [address] [place] [address] 47130 ALP [Catalytic activity/Vol] 55 U/L Normal 39-130 [facility] Comment on above: Performed By: #### C BCA, BMP, 82069-9, 40313-8, 59850-3 #### [facility] ([id number]) [address] [place] [address] 57489 ALT [Catalytic activity/Vol] 9 U/L Normal 0-31 [facility] Comment on above: Performed By: #### C BCA, BMP, 93020-6, 67088-2, 63246-0 #### [facility] ([id number]) [address] [place] [address] 47101 Anion gap [Moles/Vol] 8 mmol/L Normal 5-15 [facility] Comment on above: Performed By: #### C BCA, BMP, 99753-4, 84145-3, 04300-3 #### [facility] ([id number]) [address] [place] [address] 00993 AST [Catalytic activity/Vol] 13 U/L Normal 0-41 [facility] Comment on above: Performed By: #### C BCA, BMP, 95444-6, 39248-8, 38020-4 #### [facility] ([id number]) [address] [place] [address] 25824 Bilirubin [Mass/Vol] 0.4 mg/dL Normal 0.3-1.2 [facility] Comment on above: Performed By: #### C BCA, BMP, 45212-2, 50267-5, 68502-6 #### [facility] ([id number]) [address] [place] [address] 94431 Calcium [Mass/Vol] 8.4 mg/dL Low 8.5-10.5 [facility] Comment on above: Performed By: #### C BCA, BMP, 36237-2, 32201-6, 49915-0 #### [facility] ([id number]) [address] [place] [address] 74951 Chloride [Moles/Vol] 101 mmol/L Normal 98-109 [facility] Comment on above: Performed By: #### C VIRGILIO, BMP, , 21084-3, 14648-8 #### [facility] ([id number]) [address] [place] [address] 15269 CO2 [Moles/Vol] 28 mmol/L Normal 22-32 [facility] Comment on above: Performed By: #### C VIRGILIO, BMP, , 29281-6, 56267-6 #### [facility] ([id number]) [address] [place] [address] 66169 Creatinine [Mass/Vol] 2.63 mg/dL High 0.40-1.00 [facility] Comment on above: Result Comment: METH OD TRACEABLE TO IDMS STANDARD Performed By: #### C VIRGILIO, BMP, , 97679-9, 15450-9 #### [facility] ([id number]) [address] [place] [address] 60256 GFR/1.73 sq M.predicted among non-blacks MDRD (S/P/Bld) [Vol rate/Area] 20 mL/min/{1.73_m2} Low >59 [facility] Comment on above: Result Comment: Reported eGFR is based on the CKD-EPI 1 equation that does not use a race coefficient. Performed By: #### C BCA, BMP, , 65031-3, 50635-3 #### [facility] ([id number]) [address] [place] [address] 25182 Glucose [Mass/Vol] 107 mg/dL High 65-99 [facility] Comment on above: Performed By: #### C BCA, BMP, , 98712-0, 63017-8 #### [facility] ([id number]) [address] [place] [address] 42080 Potassium [Moles/Vol] 3.2 mmol/L Low 3.5-5.0 [facility] Comment on above: Performed By: #### C BCA, BMP, 74515-4, 61488-7, 64813-3 #### [facility] ([id number]) [address] [place] [address] 54275 Protein [Mass/Vol] 5.4 g/dL Low 6.0-8.0 [facility] Comment on above: Performed By: #### C BCA, BMP, , 92740-4, 50423-6 #### [facility] ([id number]) [address] [place] [address] 16239 Sodium [Moles/Vol] 137 mmol/L Normal 134-146 [facility] Comment on above: Performed By: #### C BCA, BMP, 19693-9, 99462-8, 62782-6 #### [facility] ([id number]) [address] [place] [address] 55725 Urea nitrogen [Mass/Vol] 23 mg/dL Normal 5-23 [facility] Comment on above: Performed By: #### C BCA, BMP, 04124-4, 94909-2, 43936-9 #### [facility] ([id number]) [address] [place] [address] 56066 Calcium.ionized (Bld) [Moles /Vol]on 10-16-2023 PORTABLE ICA 4.6 mg/dL Normal 4.5-5.3 [facility] Comment on above: Performed By: #### C BCA, BMP, 01648-1, 23027-9, 98214-2 #### [facility] ([id number]) [address] [place] [address] 13777 Clinical Pathologyon 024 Clinical Pathology Normal [facility] Comment on above: Result Comment: [facility] [address] [place] [address] Clinical Pathology Report Patient Name:DANIELLE MONTA[place]:1965 (Age: 58)Gender:FTaken:4Reported:4Physician(s):Irving Flores MD ([phone])Copy To: Rec. 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 No monoclonal protein identified. Report Electronically Signed Out df/10/18/2023nicci Gomez MD Interpretation performed at [facility], [address] [place] [address], License number: [id number]. Clinical History D17.9, I16.0, E87.6. URINE PROTEIN ELECTROPHORESIS SAMPLE NUMBER: [id number] RELATIVE ELECTROPHORETIC CONCENTRATIONS (%) ? 100.0 Urine Protein 1410 mg/L (Electrophoretic gels and densitometric tracings on file in lab.) Specimen(s) Received Urine Protein Electrophoresis Fee Codes(s): 1; 24023-44 Fibrin D-dimer DDU (PPP) [Ma ss/Vol]on 10-16-2023 D DIMER 499 ng/mL DDU High <255 [facility] Comment on above: Result Comment: Results >=255ng/mL DDU: Results may be indicative of the presence of VTE. The use of the Wells score and further diagnostic tests should be considered. Elevated D-Dimer levels can also be associated with DIC, neoplasm, , trauma and liver disease. Elevated levels of rheumatoid factor may lead to an overestimation of the D-Dimer level. Performed By: #### C VIRGILIO, BMP, 37134-2, 92550-4, 80718-2 #### [facility] ([id number]) [address] [place] [address] HGB A1C (GLYCO-HGB)on 2023 Glucose [Mass/Vol] 111 mg/dL Normal [facility] Comment on above: Performed By: #### C MARIO POOLE, , 77101-7, 66530-6 #### [facility] ([id number]) [address] [place] [address] 12053 HbA1c (Bld) [Mass fraction] 5.5 % Normal 4.4-5.6 [facility] Comment on above: Result Comment: NOTE ADA Guidelines Result HgbA1c Normal : less than 5.7 % Prediabetes : 5.7 % to 6.4 % Diabetes : > 6.4 % Use with caution in patients with abnormal hemoglobin variants as the half-life of red blood cells and in vivo glycation rates are affected. Performed By: #### C MARIO POOLE, , 69324-8, 73110-5 #### [facility] ([id number]) [address] [place] [address] 48816 MAGNESIUMon 10-16-2023 Magnesium [Mass/Vol] 2.1 mg/dL Normal 1.8-2.6 [facility] Comment on above: Performed By: #### C MARIO POOLE, , 41889-7, 77528-1 #### [facility] ([id number]) [address] [place] [address] 20842 MICROALBUMIN - ALBUMIN:CREAT ININE URINE RATIOon 10-16-2023 ALB/CREAT RATIO 3392.0 mg/g creat High 0.0-30.0 [facility] Comment on above: Performed By: #### C MARIO POOLE, , 94524-6, 44208-1 #### [facility] ([id number]) [address] [place] [address] Albumin DL <= 20 mg/L (U) [Mass/Vol] 88.6 mg/dL High 0.0-1.9 [facility] Comment on above: Performed By: #### C VIRGILIO, BMP, , 82833-8, 69360-1 #### [facility] ([id number]) [address] [place] [address] 74208 URINE CREAT 26.12 mg/dL Normal [facility] Comment on above: Performed By: #### C VIRGILIO, BMP, , 89235-3, 25094-2 #### [facility] ([id number]) [address] [place] [address] 51476 PHOSPHORUSon 10-16-2023 Phosphate [Mass/Vol] 4.3 mg/dL Normal 2.4-4.9 [facility] Comment on above: Performed By: #### C VIRGILIO, BMP, , 96216-7, 31781-2 #### [facility] ([id number]) [address] [place] [address] 73768 POTASSIUMon 10-16-2023 Potassium [Moles/Vol] 4.8 mmol/L Normal 3.5-5.0 [facility] Comment on above: Result Comment: SPEC IMEN HEMOLYZED, RESULTS INCREASED Performed By: #### C VIRGILIO, BMP, , 49812-7, 42098-2 #### [facility] ([id number]) [address] [place] [address] 26106 PROTEIN CREAT RATIOon 2023 RANDOM URINE PROTEIN 1270 mg/L High <120 [facility] Comment on above: Performed By: #### C BCA, BMP, , 98597-0, 36688-7 #### [facility] ([id number]) [address] [place] [address] 00956 U/PRO/EXPERIMENTAL WORKER RATIO CALC 4.72 High <0.2 [facility] Comment on above: Result Comment: Neph rotic Syndrome is associated with ratios >3.5 Performed By: #### C VIRGILIO, BMP, 35550-3, 84413-1, 45587-8 #### [facility] ([id number]) [address] [place] [address] 59297 URINE CREATININE,RDM 26.92 mg/dL Normal [facility] Comment on above: Performed By: #### C BCA, BMP, 84748-5, 01523-2, 55541-3 #### [facility] ([id number]) [address] [place] [address] 10737 URINALYSISon 10-16-2023 Bilirubin Ql (U) Negative Normal NEG [facility] Comment on above: Performed By: #### C VIRGILIO, BMP, 37098-8, 89026-2, 94364-4 #### [facility] ([id number]) [address] [place] [address] [place] [address] BLOOD/HGB Large Abnormal NEG [facility] Comment on above: Performed By: #### C VIRGILIO, BMP, 96066-6, 79392-4, 53691-0 #### [facility] ([id number]) [address] [place] [address] 87690 Color (U) YELLOW Normal YELLOW [facility] Comment on above: Performed By: #### C BCA, BMP, 76892-6, 02005-6, 81947-6 #### [facility] ([id number]) [address] [place] [address] 54497 Glucose Ql (U) Negative Normal NEG [facility] Comment on above: Performed By: #### C BCA, BMP, 15995-2, 96127-1, 98719-5 #### [facility] ([id number]) [address] [place] [address] 15500 Ketones Ql (U) Negative Normal NEG [facility] Comment on above: Performed By: #### C VIRGILIO, MARIO, , 83237-9, 16452-7 #### [facility] ([id number]) [address] [place] [address] 27683 Leukocyte esterase Test strip Ql (U) Negative Normal NEG [facility] Comment on above: Performed By: #### C VIRGILIO, MARIO, , 59936-7, 12619-4 #### [facility] ([id number]) [address] [place] [address] 27663 Nitrite Ql (U) Negative Normal NEG [facility] Comment on above: Performed By: #### C VIRGILIO, MARIO, , 82843-0, 91144-2 #### [facility] ([id number]) [address] [place] [address] 66616 pH (U) 6.0 [pH] Normal 5.0-8.5 [facility] Comment on above: Performed By: #### C VIRGILIO, MARIO, , 44409-6, 18513-9 #### [facility] ([id number]) [address] [place] [address] 57772 Protein Ql (U) 100 mg/dL Abnormal NEG [facility] Comment on above: Performed By: #### C VIRGILIO, MARIO, , 55077-4, 98447-8 #### [facility] ([id number]) [address] [place] [address] 05185 R.B.CELLS 80 /hpf High 0-5 [facility] Comment on above: Performed By: #### C VIRGILIO, BMP, , 12006-8, 61059-2 #### [facility] ([id number]) [address] [place] [address] 99955 Specific gravity (U) [Rel density] 1.015 Normal 1.003-1.035 [facility] Comment on above: Performed By: #### C BCA, BMP, , 76566-2, 29281-8 #### [facility] ([id number]) [address] [place] [address] 14282 SQUAMOUS EPITHELIUM 2 /hpf Normal 0-5 [facility] Comment on above: Performed By: #### C BCA, BMP, , 51805-4, 57573-6 #### [facility] ([id number]) [address] [place] [address] 95854 TURBIDITY CLEAR Normal CLEAR [facility] Comment on above: Performed By: #### C BCA, BMP, , 93882-5, 64781-4 #### [facility] ([id number]) [address] [place] [address] 22480 Urobilinogen Qn (U) 0.2 {Micaela'U}/dL Normal <1.1 [facility] Comment on above: Performed By: #### C BCA, BMP, , 45327-1, 80316-0 #### [facility] ([id number]) [address] [place] [address] 92281 W.B.CELLS 5 /hpf Normal 0-5 [facility] Comment on above: Performed By: #### C BCA, BMP, , 76091-9, 54131-7 #### [facility] ([id number]) [address] [place] [address] 65347 URINE PROTEIN ELECTROPHORESI Son 10-15-2023 UPREL INTERP SEE SEPARATE REPORT Normal [facility] URINE VOLUME AND TIMEon 09-23 TIME 24 h Normal [facility] Comment on above: Performed By: #### U CR, UPRO ####[facility] ([id number])[address], [place] [address] TOTAL VOLUME 4400 mL Normal [facility] Comment on above: Performed By: #### U CR, UPRO ####[facility] ([id number])[address], [place] [address] US RETROPERITONEAL COMPLETEo n 10-16-2023 US RETROPERITONEAL [...] Unger MD on 10/16/2023 9:42 AM Normal [facility] Basement membrane IgG Qn (S) on 10-15-2023 Glomerular Base Memb IgG <0.2 Normal <1.0 (Negative) [facility] Comment on above: Result Comment: NOTE Test Performed by: [facility] [address] [place] [address] Remote Sensing Analyst: Ledy Son Ph.D.; CLIA# [id number] Performed By: #### C BCA, BMP, 20684-0, 46043-2, 09504-5 #### [facility] ([id number]) [address] [place] [address], [place] [address] CBC AND AUTO DIFFon 10-15-19 ABSOLUTE BASOPHIL 0.1 X10E9/L Normal 0.0-0.2 [facility] Comment on above: Performed By: #### C VIRGILIO [facility], #### [facility] ([id number]) [address] [place] [address] 52359 ABSOLUTE NEUTROPHIL 6.8 X10E9/L High 1.5-6.6 [facility] Comment on above: Performed By: #### Shahla POOLE CMP, #### [facility] ([id number]) [address] [place] [address] 11747 Basophils/100 WBC (Bld) 0.7 % Normal [facility] Comment on above: Performed By: #### Shahla POOLE CMP, #### [facility] ([id number]) [address] [place] [address] 01999 Eosinophils (Bld) [#/Vol] 0.3 10*3/uL Normal 0.0-0.4 [facility] Comment on above: Performed By: #### Shahla POOLE [facility], #### [facility] ([id number]) [address] [place] [address] 05664 Eosinophils/100 WBC (Bld) 3.3 % Normal [facility] Comment on above: Performed By: #### Shahla POOLE [facility], 95339-9 #### [facility] ([id number]) [address] [place] [address] 29023 Erythrocyte distribution width (RBC) [Ratio] 14.6 % Normal 11.5-15.0 [facility] Comment on above: Performed By: #### Shahla POOLE CMP, #### [facility] ([id number]) [address] [place] [address] 17906 Hematocrit (Bld) [Volume fraction] 30.1 % Low 35-47 [facility] Comment on above: Performed By: #### Shahla POOLE CMP, #### [facility] ([id number]) [address] [place] [address] 05755 Hemoglobin (Bld) [Mass/Vol] 10.0 g/dL Low 11.7-15.5 [facility] Comment on above: Performed By: #### Shahla POOLE CMP, 26887-6 #### [facility] ([id number]) [address] [place] [address] 13368 Lymphocytes (Bld) [#/Vol] 2.4 10*3/uL Normal 1.0-3.5 [facility] Comment on above: Performed By: #### Shahla POOLE CMP, #### [facility] ([id number]) [address] [place] [address] 94044 Lymphocytes/100 WBC (Bld) 23.7 % Normal [facility] Comment on above: Performed By: #### Shahla POOLE CMP, #### [facility] ([id number]) [address] [place] [address] 79551 MCH (RBC) [Entitic mass] 27.7 pg Normal 27-34 [facility] Comment on above: Performed By: #### Shahla POOLE CMP, #### [facility] ([id number]) [address] [place] [address] 16413 MCHC (RBC) [Mass/Vol] 33.1 g/dL Normal 32-36 [facility] Comment on above: Performed By: #### Shahla POOLE CMP, #### [facility] ([id number]) [address] [place] [address] 00788 MCV (RBC) [Entitic vol] 84 fL Normal 80-100 [facility] Comment on above: Performed By: #### Shahla POOLE CMP, #### [facility] ([id number]) [address] [place] [address] Monocytes (Bld) [#/Vol] 0.6 10*3/uL Normal 0-0.9 [facility] Comment on above: Performed By: #### Shahla POOLE CMP, 18109-1 #### [facility] ([id number]) [address] [place] [address] 55070 Monocytes/100 WBC (Bld) 5.5 % Normal [facility] Comment on above: Performed By: #### Shahla POOLE CMP, 26909-2 #### [facility] ([id number]) [address] [place] [address] 29439 Neutrophils/100 WBC (Bld) 66.8 % Normal [facility] Comment on above: Performed By: #### Shahla POOLE CMP, 99557-5 #### [facility] ([id number]) [address] [place] [address] [place] [address] Platelet mean volume (Bld) [Entitic vol] 9.0 fL Normal 7-12 [facility] Comment on above: Performed By: #### Shahla POOLE CMP, 72818-1 #### [facility] ([id number]) [address] [place] [address] 17054 Platelets (Bld) [#/Vol] 312 10*3/uL Normal 150-450 [facility] Comment on above: Performed By: #### Shahla POOLE CMP, 68618-0 #### [facility] ([id number]) [address] [place] [address] [place] [address] RBC COUNT 3.59 X10E12/L Low 3.80-5.20 [facility] Comment on above: Performed By: #### Shahla POOLE CMP, #### [facility] ([id number]) [address] [place] [address] 42309 WBC (Bld) [#/Vol] 10.2 10*3/uL Normal 4.0-11.0 [facility] Comment on above: Performed By: #### C BCA, CMP, #### [facility] ([id number]) [address] [place] [address] 75719 CK [Catalytic activity/Vol]o n 10-15-2023 CPK 82 U/L Normal 24-170 [facility] Comment on above: Performed By: #### C BCA, BMP, 69448-3, 78191-7, 82333-0 #### [facility] ([id number]) [address] [place] [address] 39946 COMPLEMENT PROFILEon 024 COMPLEMENT C3 113 mg/dL Normal 86-184 [facility] Comment on above: Performed By: #### C BCA, BMP, 95593-3, 06755-5, 57527-5 #### [facility] ([id number]) [address] [place] [address] 69367 COMPLEMENT C4 36 mg/dL Normal 16-47 [facility] Comment on above: Performed By: #### C BCA, BMP, 71720-1, 11445-6, 94469-0 #### [facility] ([id number]) [address] [place] [address] 65524 COMPREHENSIVE METABOLIC PANE Phu 10-15-2023 Albumin [Mass/Vol] 2.8 g/dL Low 3.2-5.3 [facility] Comment on above: Performed By: #### C BCA, CMP, #### [facility] ([id number]) [address] [place] [address] 83850 ALP [Catalytic activity/Vol] 61 U/L Normal 39-130 [facility] Comment on above: Performed By: #### C BCA, CMP, #### [facility] ([id number]) [address] [place] [address] 76957 ALT [Catalytic activity/Vol] 10 U/L Normal 0-31 [facility] Comment on above: Performed By: #### C BCA, CMP, 45497-8 #### [facility] ([id number]) [address] [place] [address] 76407 Anion gap [Moles/Vol] 10 mmol/L Normal 5-15 [facility] Comment on above: Performed By: #### C BCA, CMP, #### [facility] ([id number]) [address] [place] [address] 19250 AST [Catalytic activity/Vol] 14 U/L Normal 0-41 [facility] Comment on above: Performed By: #### C BCA, CMP, 25726-1 #### [facility] ([id number]) [address] [place] [address] 60793 Bilirubin [Mass/Vol] 0.4 mg/dL Normal 0.3-1.2 [facility] Comment on above: Performed By: #### C BCA, CMP, #### [facility] ([id number]) [address] [place] [address] 79685 Calcium [Mass/Vol] 8.4 mg/dL Low 8.5-10.5 [facility] Comment on above: Performed By: #### C BCA, CMP, #### [facility] ([id number]) [address] [place] [address] 33593 Chloride [Moles/Vol] 104 mmol/L Normal 98-109 [facility] Comment on above: Performed By: #### C BCA, CMP, #### [facility] ([id number]) [address] [place] [address] 86656 CO2 [Moles/Vol] 26 mmol/L Normal 22-32 [facility] Comment on above: Performed By: #### C BCA, CMP, 69897-9 #### [facility] ([id number]) [address] [place] [address] 42349 Creatinine [Mass/Vol] 2.56 mg/dL High 0.40-1.00 [facility] Comment on above: Result Comment: METH OD TRACEABLE TO IDMS STANDARD Performed By: #### C EDEL POOLE, 08064-6 #### [facility] ([id number]) [address] [place] [address] 94763 GFR/1.73 sq M.predicted among non-blacks MDRD (S/P/Bld) [Vol rate/Area] 21 mL/min/{1.73_m2} Low >59 [facility] Comment on above: Result Comment: Reported eGFR is based on the CKD-EPI 2020 equation that does not use a race coefficient. Performed By: #### C EDEL POOLE, 34599-5 #### [facility] ([id number]) [address] [place] [address]201 Glucose [Mass/Vol] 103 mg/dL High 65-99 [facility] Comment on above: Performed By: #### C EDEL POOLE, #### [facility] ([id number]) [address] [place] [address]58 Potassium [Moles/Vol] 3.2 mmol/L Low 3.5-5.0 [facility] Comment on above: Performed By: #### C EDEL POOLE, #### [facility] ([id number]) [address] [place] [address]99 Protein [Mass/Vol] 5.6 g/dL Low 6.0-8.0 [facility] Comment on above: Performed By: #### C EDEL POOLE, #### [facility] ([id number]) [address] [place] [address] 27391 Sodium [Moles/Vol] 140 mmol/L Normal 134-146 [facility] Comment on above: Performed By: #### C BCA, CMP, #### [facility] ([id number]) [address] [place] [address] 08445 Urea nitrogen [Mass/Vol] 20 mg/dL Normal 5-23 [facility] Comment on above: Performed By: #### C BCA, CMP, #### [facility] ([id number]) [address] [place] [address] [phone] CRYOGLOBULIN WITH IDon 10-14 CRYOGLOBULIN, QUAL NEG 72HOUR Normal NEG 72Hour [facility] Comment on above: Result Comment: NOTE This test was developed and its performance characteristics determined by [facility]. It has not been cleared or approved by the [place] Food and Drug Administration. This test was performed in a CLIA certified laboratory and is intended for clinical purposes. Performed By: [facility] [address] [place] [address] Food Production Supervisor: Hank Armstrong MD, PhD CLIA Number: [id number] Performed By: #### 8 [id number] #### [facility] ([id number]) [address] [place] [address] 66614 Creatinine (U) [Mass/Vol]on 10-15-2023 URINE CREATININE,RDM 102.61 mg/dL Normal [facility] Comment on above: Performed By: #### C VIRGILIO, BMP, , 06185-4, 02445-1 #### [facility] ([id number]) [address] [place] [address] 18823 FERRITINon 10-15-2023 Ferritin [Mass/Vol] 45 ng/mL Normal 11-307 [facility] Comment on above: Performed By: #### C BCA, BMP, 91348-1, 53702-5, 70481-3 #### [facility] ([id number]) [address] [place] [address] 95144 FREE LIGHT CHAINSon 10-15-19 24 FREE ANDREA/LAMBD RATIO 0.94 Normal 0.26-1.65 [facility] Comment on above: Performed By: #### C VIRGILIO, BMP, , 90819-0, 72675-0 #### [facility] ([id number]) [address] [place] [address] 24854 FREE KAPPA LT CHAINS 3.52 mg/dL High 0.33-1.94 [facility] Comment on above: Performed By: #### C VIRGILIO, BMP, , 06602-2, 72297-1 #### [facility] ([id number]) [address] [place] [address] 54992 FREE LAMBDA LT CHAINS 3.75 mg/dL High 0.57-2.63 [facility] Comment on above: Performed By: #### C VIRGILIO, MARIO, , 45699-0, 90917-6 #### [facility] ([id number]) [address] [place] [address] 34332 Folate [Mass/Vol]on 10-15-19 24 FOLIC ACID 10.3 ng/mL Normal >5.8 [facility] Comment on above: Result Comment: NEW REFERENCE RANGE Performed By: #### C VIRGILIO, BMP, , 00979-0, 41611-1 #### [facility] ([id number]) [address] [place] [address] 42539 HBV surface Ab IA Qnon 10-14 Anti HBs quant. <8.00 Normal [facility] Comment on above: Result Comment: Vacc inated: >=12mIU/mL, Positive (Immune) Unvaccinated: <8mIU/mL, Negative (Not Immune) 8-11.99 mIU/mL: Indeterminate, (Considered Not Immune) Performed By: #### C VIRGILIO, BMP, , 90659-0, 52568-5 #### [facility] ([id number]) [address] [place] [address] HBV surface Ag IA Qlon 10-14 HEPATITIS B SURF AG Negative Normal NEG [facility] Comment on above: Performed By: #### C MARIO POOLE, , 03775-8, 64423-5 #### [facility] ([id number]) [address] [place] [address] 45206 HCV Ab IA Qlon 10-15-2023 ANTI HCV W/PCR REFLX Non-Reactive Normal NRCT [facility] Comment on above: Result Comment: If recent infection suspected, recommend repeat testing (>2 months). Nxggia-tk-actqdl ratio is <0.80. Performed By: #### C MARIO POOLE, , 71119-4, 66856-9 #### [facility] ([id number]) [address] [place] [address] 37109 HIV 1+2 Ab+HIV1 p24 Ag IA Ql on 10-15-2023 HIV 1 and 2 Ab/Ag Screen Non-Reactive Normal NRCT [facility] Comment on above: Result Comment: This information [...] diagnoses. Performed By: #### C MARIO POOLE, , 16114-4, 95156-5 #### [facility] ([id number]) [address] [place] [address] 87579 IRON PROFILEon 10-15-2023 Iron [Mass/Vol] 30 ug/dL Low 50-170 [facility] Comment on above: Performed By: #### C MARIO POOLE, , 08020-4, 49027-5 #### [facility] ([id number]) [address] [place] [address] 98657 IRON BINDING 218 ug/dL Low 250-425 [facility] Comment on above: Performed By: #### C BCA, BMP, , 91337-7, 66413-4 #### [facility] ([id number]) [address] [place] [address] 48762 IRON SATURATION 14 % SATURATION Low 15-50 [facility] Comment on above: Performed By: #### C BCA, BMP, , 24198-5, 92947-4 #### [facility] ([id number]) [address] [place] [address] 55968 MAGNESIUMon 10-15-2023 Magnesium [Mass/Vol] 1.7 mg/dL Low 1.8-2.6 [facility] Comment on above: Performed By: #### C BCA, [facility], 94082-5 #### [facility] ([id number]) [address] [place] [address] 43149 Myeloperoxidase IgG Qn (S)on 10-15-2023 Myeloperoxidase IgG >8.0 High <0.4 (Negative) [facility] Comment on above: Result Comment: NOTE Interpretation: Positive (>=1.0) Test Performed by: [facility] [address] [place] [address] Remote Sensing Analyst: Ledy Son Ph.D.; CLIA# [id number] Performed By: #### C BCA, BMP, , 58033-0, 88866-2 #### [facility] ([id number]) [address] [place] [address] 13128 Nuclear Ab IA Ql (S)on 10-14 SAUL Screen w/reflex Negative Normal NEG [facility] Comment on above: Result Comment: Testing performed using multiplex flow immunoassay. Eleven different antigens associated with systemic autoimmune diseases (dsDNA,Sm,Sm/CANCER GENETICS ASSISTANT,CANCER GENETICS ASSISTANT,Chromatin, SSA,SSB,Yoly-1,Scl70,Ribo P,Centromere B) are included in this screening test. Performed By: #### C MARIO POOLE, , 72843-2, 17828-1 #### [facility] ([id number]) [address] [place] [address] 69991 POTASSIUMon 10-15-2023 Potassium [Moles/Vol] 3.5 mmol/L Normal 3.5-5.0 [facility] Comment on above: Performed By: #### C MARIO POOLE, , 86344-7, 08796-5 #### [facility] ([id number]) [address] [place] [address] 65488 Proteinase 3 IgG IA Qnon Proteinase 3 IgG 0.2 U Normal <0.4 (Negative) [facility] Comment on above: Result Comment: NOTE Test Performed by: [facility] [address] [place] [address] Remote Sensing Analyst: Ledy Son Ph.D.; CLIA# [id number] Performed By: #### C MARIO POOLE, , 10183-6, 77056-2 #### [facility] ([id number]) [address] [place] [address] 67074 Rheumatoid factor Nephelomet ry Qn (S)on 10-15-2023 RHEUMATOID FACTOR 76 IU/mL High <20 [facility] Comment on above: Performed By: #### C MARIO POOLE, , 72918-3, 05739-7 #### [facility] ([id number]) [address] [place] [address] 97988 SERUM PROTEIN ELECTROPHORESI Son 10-15-2023 Albumin [Mass/Vol] 2.5 g/dL Low 3.4-5.3 [facility] Comment on above: Performed By: #### C VIRGILIO, BMP, 69704-8, 76697-6, 08292-4 #### [facility] ([id number]) [address] [place] [address] 11377 ALPHA 1 GLOBULIN 0.4 g/dL Normal 0.1-0.4 [facility] Comment on above: Performed By: #### C BCA, BMP, 50831-6, 29655-3, 28993-6 #### [facility] ([id number]) [address] [place] [address] 27703 ALPHA 2 GLOBULIN 0.9 g/dL Normal 0.4-1.1 [facility] Comment on above: Performed By: #### C BCA, BMP, 02660-3, 70737-5, 32162-8 #### [facility] ([id number]) [address] [place] [address] 10015 BETA GLOBULIN 0.5 g/dL Normal 0.5-1.2 [facility] Comment on above: Performed By: #### C BCA, BMP, , 87606-4, 88833-5 #### [facility] ([id number]) [address] [place] [address] 39657 GAMMA GLOBULIN 0.4 g/dL Low 0.5-1.6 [facility] Comment on above: Performed By: #### C BCA, BMP, 15263-9, 47177-1, 87888-5 #### [facility] ([id number]) [address] [place] [address] 38843 PROT. ELECTROPHORESIS INTERP Unremarkable protein distribution, no monoclonal bands. Normal [facility] Comment on above: Performed By: #### C BCA, BMP, 82064-0, 96622-5, 52983-3 #### [facility] ([id number]) [address] [place] [address] 00125 Protein [Mass/Vol] 4.7 g/dL Low 6.0-8.0 [facility] Comment on above: Performed By: #### C BCA, BMP, 49538-4, 61433-4, 68129-6 #### [facility] ([id number]) [address] [place] [address] [place] [address] URINALYSISon 10-15-2023 Bilirubin Ql (U) Negative Normal NEG [facility] Comment on above: Performed By: #### C BCA, BMP, 87876-7, 93849-1, 51769-2 #### [facility] ([id number]) [address] [place] [address] 00757 BLOOD/HGB Large Abnormal NEG [facility] Comment on above: Performed By: #### C BCA, BMP, 46855-9, 43345-3, 05590-7 #### [facility] ([id number]) [address] [place] [address] [place] [address] Color (U) YELLOW Normal YELLOW [facility] Comment on above: Performed By: #### C BCA, BMP, 13509-0, 32248-7, 88419-8 #### [facility] ([id number]) [address] [place] [address] [place] [address] Glucose Ql (U) Negative Normal [facility] Comment on above: Performed By: #### C BCA, BMP, 79762-7, 59002-2, 89581-4 #### [facility] ([id number]) [address] [place] [address] [place] [address] Ketones Ql (U) Negative Normal NEG [facility] Comment on above: Performed By: #### C BCA, BMP, 34689-7, 35922-9, 15315-2 #### [facility] ([id number]) [address] [place] [address] 19921 Leukocyte esterase Test strip Ql (U) Negative Normal NEG [facility] Comment on above: Performed By: #### C BCA, BMP, 06491-2, 03339-4, 17414-8 #### [facility] ([id number]) [address] [place] [address] 46172 Nitrite Ql (U) Negative Normal NEG [facility] Comment on above: Performed By: #### C BCA, BMP, 92101-4, 63097-4, 36718-4 #### [facility] ([id number]) [address] [place] [address] 33183 pH (U) 6.0 [pH] Normal 5.0-8.5 [facility] Comment on above: Performed By: #### C BCA, BMP, 15609-1, 31242-5, 83730-9 #### [facility] ([id number]) [address] [place] [address] 95912 Protein Ql (U) >300 Abnormal NEG [facility] Comment on above: Performed By: #### C BCA, BMP, 08919-4, 46299-5, 65867-3 #### [facility] ([id number]) [address] [place] [address] 52532 R.B.CELLS 30 /hpf High 0-5 [facility] Comment on above: Performed By: #### C BCA, BMP, 69151-6, 04662-6, 61931-3 #### [facility] ([id number]) [address] [place] [address] 72988 Specific gravity (U) [Rel density] 1.025 Normal 1.003-1.035 [facility] Comment on above: Performed By: #### C BCA, BMP, 51800-6, 08289-7, 56848-5 #### [facility] ([id number]) [address] [place] [address] 81608 SQUAMOUS EPITHELIUM 6 /hpf High 0-5 [facility] Comment on above: Performed By: #### C BCA, BMP, 20917-5, 86274-2, 78596-1 #### [facility] ([id number]) [address] [place] [address] 50392 TURBIDITY CLEAR Normal CLEAR [facility] Comment on above: Performed By: #### C BCA, BMP, , 25255-0, 81417-7 #### [facility] ([id number]) [address] [place] [address] 13680 Urobilinogen Qn (U) 0.2 {Micaela'U}/dL Normal <1.1 [facility] Comment on above: Performed By: #### C BCA, BMP, , 89280-0, 84011-6 #### [facility] ([id number]) [address] [place] [address] 84871 W.B.CELLS 10 /hpf High 0-5 [facility] Comment on above: Performed By: #### C BCA, BMP, , 88470-8, 14697-0 #### [facility] ([id number]) [address] [place] [address] 61665 URINE SODIUM,RANDOMon 2023 Sodium (U) [Moles/Vol] 86 mmol/L Normal [facility] Comment on above: Performed By: #### C BCA, BMP, , 02498-1, 17166-5 #### [facility] ([id number]) [address] [place] [address] 06782 VITAMIN B12on 10-15-2023 Cobalamin (Vitamin B12) [Mass/Vol] 159 pg/mL Low 180-914 [facility] Comment on above: Performed By: #### C BCA, BMP, 72263-9, 11019-3, 91728-4 #### [facility] ([id number]) [address] [place] [address] 85811 BASIC METABOLIC PANLon 10-13 Anion gap [Moles/Vol] 5 mmol/L Normal 5-15 [facility] Comment on above: Performed By: #### C BCA, BMP, 09266-1, 07083-6, 01798-5 #### [facility] ([id number]) [address] [place] [address] 18584 Calcium [Mass/Vol] 8.1 mg/dL Low 8.5-10.5 [facility] Comment on above: Performed By: #### C BCA, BMP, 62062-4, 49166-6, 58533-2 #### [facility] ([id number]) [address] [place] [address] 12230 Chloride [Moles/Vol] 107 mmol/L Normal 98-109 [facility] Comment on above: Performed By: #### C BCA, BMP, 21985-9, 98059-4, 90869-0 #### [facility] ([id number]) [address] [place] [address] 57738 CO2 [Moles/Vol] 27 mmol/L Normal 22-32 [facility] Comment on above: Performed By: #### C BCA, BMP, 74793-3, 01357-8, 98680-9 #### [facility] ([id number]) [address] [place] [address] 48097 Creatinine [Mass/Vol] 2.56 mg/dL High 0.40-1.00 [facility] Comment on above: Result Comment: METH OD TRACEABLE TO IDMS STANDARD Performed By: #### C BCA, BMP, 10550-0, 56504-6, 46072-3 #### [facility] ([id number]) [address] [place] [address] 35966 GFR/1.73 sq M.predicted among non-blacks MDRD (S/P/Bld) [Vol rate/Area] 21 mL/min/{1.73_m2} Low >59 [facility] Comment on above: Result Comment: Reported eGFR is based on the CKD-EPI 2020 equation that does not use a race coefficient. Performed By: #### C VIRGILIO, BMP, 48901-3, 05784-5, 46620-6 #### [facility] ([id number]) [address] [place] [address] 74374 Glucose [Mass/Vol] 95 mg/dL Normal 65-99 [facility] Comment on above: Performed By: #### C VIRGILIO, BMP, 78895-1, 44984-3, 26612-9 #### [facility] ([id number]) [address] [place] [address] 21949 Potassium [Moles/Vol] 3.1 mmol/L Low 3.5-5.0 [facility] Comment on above: Performed By: #### C BCA, BMP, 36622-9, 56309-2, 41933-2 #### [facility] ([id number]) [address] [place] [address] 38507 Sodium [Moles/Vol] 139 mmol/L Normal 134-146 [facility] Comment on above: Performed By: #### C VIRGILIO, BMP, 35996-3, 33777-3, 72059-2 #### [facility] ([id number]) [address] [place] [address] 38408 Urea nitrogen [Mass/Vol] 19 mg/dL Normal 5-23 [facility] Comment on above: Performed By: #### C BCA, BMP, 88349-8, 08898-3, 76800-1 #### [facility] ([id number]) [address] [place] [address] 66822 CBC AND AUTO DIFFon 10-13- 24 ABSOLUTE BASOPHIL 0.1 X10E9/L Normal 0.0-0.2 [facility] Comment on above: Performed By: #### C BCA, BMP, 35005-5, 91829-0, 60675-7 #### [facility] ([id number]) [address] [place] [address] 09690 ABSOLUTE NEUTROPHIL 5.7 X10E9/L Normal 1.5-6.6 [facility] Comment on above: Performed By: #### C BCA, BMP, 85240-6, 27018-6, 27876-6 #### [facility] ([id number]) [address] [place] [address] 61801 Basophils/100 WBC (Bld) 0.7 % Normal [facility] Comment on above: Performed By: #### C BCA, BMP, , 52919-1, 40616-6 #### [facility] ([id number]) [address] [place] [address] 73396 Eosinophils (Bld) [#/Vol] 0.5 10*3/uL High 0.0-0.4 [facility] Comment on above: Performed By: #### C BCA, BMP, , 40543-8, 20966-5 #### [facility] ([id number]) [address] [place] [address] 97788 Eosinophils/100 WBC (Bld) 4.9 % Normal [facility] Comment on above: Performed By: #### C BCA, BMP, , 09717-0, 83254-7 #### [facility] ([id number]) [address] [place] [address] 15091 Erythrocyte distribution width (RBC) [Ratio] 14.6 % Normal 11.5-15.0 [facility] Comment on above: Performed By: #### C BCA, BMP, , 83340-6, 55185-6 #### [facility] ([id number]) [address] [place] [address] 84212 Hematocrit (Bld) [Volume fraction] 33.2 % Low 35-47 [facility] Comment on above: Performed By: #### C BCA, BMP, 31987-8, 88806-5, 39017-1 #### [facility] ([id number]) [address] [place] [address] 51745 Hemoglobin (Bld) [Mass/Vol] 10.9 g/dL Low 11.7-15.5 [facility] Comment on above: Performed By: #### C BCA, BMP, 11748-7, 10630-6, 03381-7 #### [facility] ([id number]) [address] [place] [address] 97132 Lymphocytes (Bld) [#/Vol] 2.8 10*3/uL Normal 1.0-3.5 [facility] Comment on above: Performed By: #### C BCA, BMP, 15021-9, 89563-8, 23845-6 #### [facility] ([id number]) [address] [place] [address] 51310 Lymphocytes/100 WBC (Bld) 28.7 % Normal [facility] Comment on above: Performed By: #### Shahla BCA, BMP, 57892-8, 75059-5, 20665-6 #### [facility] ([id number]) [address] [place] [address] 23179 MCH (RBC) [Entitic mass] 27.7 pg Normal 27-34 [facility] Comment on above: Performed By: #### C BCA, BMP, , 92149-8, 85681-3 #### [facility] ([id number]) [address] [place] [address] 08500 MCHC (RBC) [Mass/Vol] 32.9 g/dL Normal 32-36 [facility] Comment on above: Performed By: #### C BCA, BMP, 91498-6, 08003-9, 68612-8 #### [facility] ([id number]) [address] [place] [address] 74382 MCV (RBC) [Entitic vol] 84 fL Normal 80-100 [facility] Comment on above: Performed By: #### Shahla BCA, BMP, 80779-6, 36130-2, 90792-4 #### [facility] ([id number]) [address] [place] [address] 07595 Monocytes (Bld) [#/Vol] 0.8 10*3/uL Normal 0-0.9 [facility] Comment on above: Performed By: #### Shahla BCA, BMP, 86353-7, 89096-0, 76233-7 #### [facility] ([id number]) [address] [place] [address] 85662 Monocytes/100 WBC (Bld) 8.1 % Normal [facility] Comment on above: Performed By: #### Shahla POOLE, BMP, , 39761-8, 73309-7 #### [facility] ([id number]) [address] [place] [address] 86080 Neutrophils/100 WBC (Bld) 57.6 % Normal [facility] Comment on above: Performed By: #### Shahla BCA, BMP, 58128-3, 77057-5, 17109-8 #### [facility] ([id number]) [address] [place] [address] 74885 Platelet mean volume (Bld) [Entitic vol] 8.9 fL Normal 7-12 [facility] Comment on above: Performed By: #### Shahla BCA, BMP, 03718-9, 78877-2, 31104-5 #### [facility] ([id number]) [address] [place] [address] 59449 Platelets (Bld) [#/Vol] 319 10*3/uL Normal 150-450 [facility] Comment on above: Performed By: #### C BCA, BMP, , 50483-7, 38974-8 #### [facility] ([id number]) [address] [place] [address] 91666 RBC COUNT 3.95 X10E12/L Normal 3.80-5.20 [facility] Comment on above: Performed By: #### C BCA, BMP, , 25326-8, 87942-3 #### [facility] ([id number]) [address] [place] [address] 92150 WBC (Bld) [#/Vol] 9.9 10*3/uL Normal 4.0-11.0 [facility] Comment on above: Performed By: #### C VIRGILOI, BMP, , 72182-4, 56387-0 #### [facility] ([id number]) [address] [place] [address] 95560 MAGNESIUMon 10-14-2023 Magnesium [Mass/Vol] 1.8 mg/dL Normal 1.8-2.6 [facility] Comment on above: Performed By: #### C BCA, BMP, , 99034-2, 96133-9 #### [facility] ([id number]) [address] [place] [address] 21909 Natriuretic peptide B [Mass/ Vol]on 10-14-2023 Natriuretic peptide B (Bld) [Mass/Vol] 427 pg/mL High <100.0 [facility] Comment on above: Performed By: #### C BCA, BMP, 98892-2, 37999-3, 37651-7 #### [facility] ([id number]) [address] [place] [address] 70503 Troponin I.cardiac High sens itivity method [Mass/Vol]on 10-14-2023 1 HOUR TROP I, HIGH SENSITIVITY 39 ng/L High <16 [facility] Comment on above: Result Comment: Elevations of hs-Troponin may be due to causes other than myocardial ischemia. Recommend serial hs-Troponin testing be performed. For the initial evaluation and management of chest pain patients, refer to the algorithms linked below. Emergency Patient: [email or web address] Inpatient: [email or web address] Performed By: #### 8 9579-7 #### [facility] ([id number]) [address] [place] [address] 44306 TROPONIN I, HIGH SENSITIVITY 39 ng/L High <16 [facility] Comment on above: Result Comment: Elevations of hs-Troponin may be due to causes other than myocardial ischemia. Recommend serial hs-Troponin testing be performed. For the initial evaluation and management of chest pain patients, refer to the algorithms linked below. Emergency Patient: [email or web address] Inpatient: [email or web address] Performed By: #### C BCA, BMP, 01958-5, 31607-8, 98436-2 #### [facility] ([id number]) [address] [place] [address] 13298 XR CHEST 1 VWon 10-14-2023 XR CHEST 1 VW XR CHEST 1 VW Single view chest History: Difficulty breathing, shortness of breath Comparison: 01/01/2021 Impression: 1. Low lung volumes and hypoventilatory change, Central pulmonary vascular congestion without overt pulmonary edema. No sizable pleural effusion, no definite pneumothorax. 2. Borderline cardiomegaly. Finalized by Naren Morris MD on 10/14/2023 11:39 PM Normal [facility] ANTIBODY ID PANELon 01-03-20 ANTIBODY ID PANEL Antibody ID Anti-Jka Normal [facility] Comment on above: Performed By: #### C TABBY, HSTROPN #### [facility] [address] [place] [address] Dr. Steve Valentin CBC AUTO DIFFon 12-31-2021 BASO # 0.0 103/ul Normal 0.0-0.1 [facility] Comment on above: Performed By: #### C MP, HSTROPN #### [facility] [address] [place] [address] Dr. Steve Valentin Basophils/100 WBC (Bld) 0.9 % Normal 0.2-2.0 [facility] Comment on above: Performed By: #### C TABBY, HSTROPN #### [facility] [address] [place] [address] Dr. Steve Valentin EO # 0.2 103/ul Normal 0.0-0.7 [facility] Comment on above: Performed By: #### C TABBY, HSTROPN #### [facility] [address] [place] [address] Dr. Steve Valentin Eosinophils/100 WBC (Bld) 4.3 % Normal 0.9-7.0 [facility] Comment on above: Performed By: #### C MP, HSTROPN #### [facility] [address] [place] [address] Dr. Steve Valentin Erythrocyte distribution width (RBC) [Ratio] 14.1 % Normal 11.0-15.0 [facility] Comment on above: Performed By: #### C MP, HSTROPN #### [facility] [address] [place] [address] Dr. Steve Valentin Hematocrit (Bld) [Volume fraction] 34.6 % Critically low 36.0-48.0 [facility] Comment on above: Performed By: #### C MP, HSTROPN #### [facility] [address] [address] [address] Steve Valentin Hemoglobin (Bld) [Mass/Vol] 10.9 g/dL Critically low 12.0-16.0 [facility] Comment on above: Performed By: #### C MP, HSTROPN #### [facility] [address] [place] [address] Dr. Steve Valentin IG # 0.01 10e3/ul Normal 0.00-0.03 [facility] Comment on above: Performed By: #### C MP, HSTROPN #### [facility] [address] [place] [address] Dr. Steve Valentin IG % 0.3 % Normal 0.0-0.5 [facility] Comment on above: Performed By: #### C MP, HSTROPN #### [facility] [address] [place] [address] Dr. Steve Valentin LYMPH # 0.9 103/ul Critically low 1.2-3.[address] [facility] Comment on above: Performed By: #### C MP, HSTROPN #### [facility] [address] [place] [address] Dr. Steve Valentin Lymphocytes/100 WBC (Bld) 26.3 % Normal 20.5-60.0 [facility] Comment on above: Performed By: #### C MP, HSTROPN #### [facility] Laboratory [address] [place] [address] Dr. Steve Valentin MANUAL DIFF REQ NO Normal [facility] Comment on above: Performed By: #### C MP, HSTROPN #### [facility] [address] [place] [address] Dr. Steve Valentin MCH (RBC) [Entitic mass] 26.7 pg Normal 26.7-34.0 [facility] Comment on above: Performed By: #### C MP, HSTROPN #### [facility] [address] [place] [address] Dr. Steve Valentin MCHC (RBC) [Mass/Vol] 31.5 g/dL Normal 29.9-35.2 [facility] Comment on above: Performed By: #### C MP, HSTROPN #### [facility] [address] [place] [address] Dr. Steve Valentin MCV (RBC) [Entitic vol] 84.8 fL Normal 81.0-99.0 [facility] Comment on above: Performed By: #### C MP, HSTROPN #### [facility] [address] [place] [address] Dr. Steve Valentin MONO # 0.3 103/ul Normal 0.3-0.8 [facility] Comment on above: Performed By: #### C MP, HSTROPN #### [facility] [address] [place] [address] Dr. Steve Valentin Monocytes/100 WBC (Bld) 9.5 % Normal 1.7-12.0 [facility] Comment on above: Performed By: #### C MP, HSTROPN #### [facility] [address] [place] [address] Dr. Steve Valentin NEUT # 2.0 103/ul Normal 1.4-6.5 [facility] Comment on above: Performed By: #### C MP, HSTROPN #### [facility] [address] [place] [address] Dr. Steve Valentin Neutrophils/100 WBC (Bld) 58.7 % Normal 43.0-75.0 [facility] Comment on above: Performed By: #### C MP, HSTROPN #### [facility] [address] [place] [address] Dr. Steve Valentin Platelet mean volume (Bld) [Entitic vol] 10.5 fL Normal 9.5-13.5 [facility] Comment on above: Performed By: #### C MP, HSTROPN #### [facility] [address] [place] [address] Dr. Steve Valentin PLT 164 103/ul Normal 150-450 [facility] Comment on above: Performed By: #### C MP, HSTROPN #### [facility] [address] [place] [address] Dr. Steve Valentin RBC 4.08 106/ul Critically low 4.20-5.40 [facility] Comment on above: Performed By: #### C MP, HSTROPN #### [facility] [address] [place] [address] Dr. Steve Valentin WBC 3.5 103/ul Critically low 4.0-11.0 [facility] Comment on above: Performed By: #### C TABBY, HSTROPN #### [facility] [address] [place] [address] Dr. Steve Valentin PROF 14(COMP METB)on 022 Albumin [Mass/Vol] 3.0 g/dL Critically low 3.4-5.0 [facility] Comment on above: Performed By: #### C MP #### [facility] [address] [place] [address] Dr. Steve Valentin Albumin/Globulin [Mass ratio] 1.0 {ratio} Normal [facility] Comment on above: Performed By: #### C MP #### [facility] [address] [place] [address] Dr. Steve Valentin ALP [Catalytic activity/Vol] 56 U/L Normal 46-116 [facility] Comment on above: Performed By: #### C MP #### [facility] [address] [place] [address] Dr. Steve Valentin ALT [Catalytic activity/Vol] 20 U/L Normal 14-59 [facility] Comment on above: Performed By: #### C MP #### [facility] [address] [place] [address] Dr. Steve Valentin Anion gap [Moles/Vol] 9.3 mmol/L Normal [facility] Comment on above: Performed By: #### C MP #### [facility] [address] [place] [address] Dr. Steve Valentin AST [Catalytic activity/Vol] 17 U/L Normal 15-37 [facility] Comment on above: Performed By: #### C MP #### [facility] [address] [address] [address] Steve Valentin Bilirubin [Mass/Vol] 0.2 mg/dL Normal 0.2-1.0 [facility] Comment on above: Performed By: #### C MP #### [facility] [address] [place] [address] Dr. Steve Valentin Calcium [Mass/Vol] 8.8 mg/dL Normal 8.5-10.1 [facility] Comment on above: Performed By: #### C MP #### [facility] [address] [place] [address] Dr. Steve Valentin Chloride [Moles/Vol] 106 mmol/L Normal 98-107 [facility] Comment on above: Performed By: #### C MP #### [facility] [address] [place] [address] Dr. Steve Valentin CO2 [Moles/Vol] 26.5 mmol/L Normal 21.0-32.0 [facility] Comment on above: Performed By: #### C MP #### [facility] [address] [place] [address] Dr. Steve Valentin Creatinine [Mass/Vol] 0.92 mg/dL Normal 0.55-1.02 [facility] Comment on above: Performed By: #### C MP #### [facility] [address] [place] [address] Dr. Steve Valentin EGFR-AF PAKISTANI >60 Normal >=60 [facility] Comment on above: Performed By: #### C MP #### [facility] [address] [place] [address] Dr. Steve Valentin EGFR-NON AF PAKISTANI >60 Normal >=60 [facility] Comment on above: Performed By: #### C MP #### [facility] [address] [place] [address] Dr. Steve Valentin Globulin (S) [Mass/Vol] 2.9 g/dL Normal [facility] Comment on above: Performed By: #### C MP #### [facility] [address] [place] [address] Dr. Steve Valentin Glucose [Mass/Vol] 97 mg/dL Normal 74-106 [facility] Comment on above: Performed By: #### C MP #### [facility] [address] [address] [address] Steve Valentin Potassium [Moles/Vol] 3.8 mmol/L Normal 3.5-5.1 [facility] Comment on above: Performed By: #### C MP #### [facility] [address] [address] [address] Steve Valentin Protein [Mass/Vol] 5.9 g/dL Critically low 6.4-8.2 [facility] Comment on above: Performed By: #### C MP #### [facility] [address] [place] [address] Dr. Steve Valentin Sodium [Moles/Vol] 138 mmol/L Normal 136-145 [facility] Comment on above: Performed By: #### C MP #### [facility] [address] [place] [address] Dr. Steve Valentin Urea nitrogen [Mass/Vol] 5.0 mg/dL Critically low 7.0-18.0 [facility] Comment on above: Performed By: #### C MP #### [facility] [address] [place] [address] Dr. Steve Valentin Urea nitrogen/Creatinine [Mass ratio] 5.4 mg/mg Normal [facility] Comment on above: Performed By: #### C MP #### [facility] [address] [place] [address] Dr. Steve Valentin CBC AUTO DIFFon 12-30-2021 BASO # 0.0 103/ul Normal 0.0-0.1 [facility] Comment on above: Performed By: #### C BC #### [facility] [address] [place] [address] Dr. Steve Valentin Basophils/100 WBC (Bld) 0.5 % Normal 0.2-2.0 [facility] Comment on above: Performed By: #### C BC #### [facility] [address] [place] [address] Dr. Steve Valentin EO # 0.1 103/ul Normal 0.0-0.7 [facility] Comment on above: Performed By: #### C BC #### [facility] [address] [place] [address] Dr. Steve Valentin Eosinophils/100 WBC (Bld) 3.2 % Normal 0.9-7.0 [facility] Comment on above: Performed By: #### C BC #### [facility] [address] [place] [address] Dr. Steve Valentin Erythrocyte distribution width (RBC) [Ratio] 14.0 % Normal 11.0-15.0 [facility] Comment on above: Performed By: #### C BC #### [facility] [address] [place] [address] Dr. Steve Valentin Hematocrit (Bld) [Volume fraction] 38.3 % Normal 36.0-48.0 [facility] Comment on above: Performed By: #### C BC #### [facility] [address] [place] [address] Dr. Steve Valentin Hemoglobin (Bld) [Mass/Vol] 11.7 g/dL Critically low 12.0-16.0 [facility] Comment on above: Performed By: #### C BC #### [facility] [address] [place] [address] Dr. Steve Valentin IG # 0.01 10e3/ul Normal 0.00-0.03 [facility] Comment on above: Performed By: #### C BC #### [facility] [address] [place] [address] Dr. Steve Valentin IG % 0.2 % Normal 0.0-0.5 [facility] Comment on above: Performed By: #### C BC #### [facility] [address] [place] [address] Dr. Steve Valentin LYMPH # 1.3 103/ul Normal 1.2-3.8 [facility] Comment on above: Performed By: #### C BC #### [facility] [address] [place] [address] Dr. Steve Valentin Lymphocytes/100 WBC (Bld) 29.6 % Normal 20.5-60.0 [facility] Comment on above: Performed By: #### C BC #### [facility] [address] [place] [address] Dr. Steve Valentin MANUAL DIFF REQ NO Normal [facility] Comment on above: Performed By: #### C BC #### [facility] [address] [place] [address] Dr. Steve Valentin MCH (RBC) [Entitic mass] 26.0 pg Critically low 26.7-34.0 [facility] Comment on above: Performed By: #### C BC #### [facility] [address] [place] [address] Dr. Steve Valentin MCHC (RBC) [Mass/Vol] 30.5 g/dL Normal 29.9-35.2 [facility] Comment on above: Performed By: #### C BC #### [facility] [address] [place] [address] Dr. Steve Valentin MCV (RBC) [Entitic vol] 85.1 fL Normal 81.0-99.0 [facility] Comment on above: Performed By: #### C BC #### [facility] [address] [place] [address] Dr. Steve Valentin MONO # 0.5 103/ul Normal 0.3-0.8 [facility] Comment on above: Performed By: #### C BC #### [facility] [address] [place] [address] Dr. Steve Valentin Monocytes/100 WBC (Bld) 10.6 % Normal 1.7-12.0 [facility] Comment on above: Performed By: #### C BC #### [facility] [address] [place] [address] Dr. Steve Valentin NEUT # 2.4 103/ul Normal 1.4-6.5 [facility] Comment on above: Performed By: #### C BC #### [facility] [address] [place] [address] Dr. Steve Valentin Neutrophils/100 WBC (Bld) 55.9 % Normal 43.0-75.0 [facility] Comment on above: Performed By: #### C BC #### [facility] [address] [place] [address] Dr. Steve Valentin Platelet mean volume (Bld) [Entitic vol] 10.0 fL Normal 9.5-13.5 [facility] Comment on above: Performed By: #### C BC #### [facility] [address] [place] [address] Dr. Steve Valentin PLT 169 103/ul Normal 150-450 [facility] Comment on above: Performed By: #### C BC #### [facility] [address] [place] [address] Dr. Steve Valentin RBC 4.50 106/ul Normal 4.20-5.40 [facility] Comment on above: Performed By: #### C BC #### [facility] [address] [place] [address] Dr. Steve Valentin WBC 4.4 103/ul Normal 4.0-11.0 [facility] Comment on above: Performed By: #### C BC #### [facility] [address] [place] [address] Dr. Steve Valentin BASO # 0.0 103/ul Normal 0.0-0.1 [facility] Comment on above: Performed By: #### C BC #### [facility] [address] [place] [address] Dr. Steve Valentin Basophils/100 WBC (Bld) 0.4 % Normal 0.2-2.0 [facility] Comment on above: Performed By: #### C BC #### [facility] [address] [place] [address] Dr. Steve Valentin EO # 0.2 103/ul Normal 0.0-0.7 [facility] Comment on above: Performed By: #### C BC #### [facility] [address] [place] [address] Dr. Steve Valentin Eosinophils/100 WBC (Bld) 2.6 % Normal 0.9-7.0 [facility] Comment on above: Performed By: #### C BC #### [facility] [address] [place] [address] Dr. Steve Valentin Erythrocyte distribution width (RBC) [Ratio] 13.9 % Normal 11.0-15.0 [facility] Comment on above: Performed By: #### C BC #### [facility] [address] [place] [address] Dr. Steve Valentin Hematocrit (Bld) [Volume fraction] 39.1 % Normal 36.0-48.0 [facility] Comment on above: Performed By: #### C BC #### [facility] [address] [place] [address] Dr. Steve Valentin Hemoglobin (Bld) [Mass/Vol] 12.3 g/dL Normal 12.0-16.0 [facility] Comment on above: Performed By: #### C BC #### [facility] [address] [place] [address] Dr. Steve Valentin IG # 0.02 10e3/ul Normal 0.00-0.03 [facility] Comment on above: Performed By: #### C BC #### [facility] [address] [place] [address] Dr. Steve Valentin IG % 0.4 % Normal 0.0-0.5 [facility] Comment on above: Performed By: #### C BC #### [facility] [address] [place] [address] Dr. Steve Valentin LYMPH # 1.1 103/ul Critically low 1.2-3.[address] [facility] Comment on above: Performed By: #### C BC #### [facility] [address] [place] [address] Dr. Steve Valentin Lymphocytes/100 WBC (Bld) 18.9 % Critically low 20.5-60.0 [facility] Comment on above: Performed By: #### C BC #### [facility] [address] [place] [address] Dr. Steve Valentin MANUAL DIFF REQ NO Normal [facility] Comment on above: Performed By: #### C BC #### [facility] [address] [place] [address] Dr. Steve Valentin MCH (RBC) [Entitic mass] 26.3 pg Critically low 26.7-34.0 [facility] Comment on above: Performed By: #### C BC #### [facility] [address] [place] [address] Dr. Steve Valentin MCHC (RBC) [Mass/Vol] 31.5 g/dL Normal 29.9-35.2 [facility] Comment on above: Performed By: #### C BC #### [facility] [address] [place] [address] Dr. Steve Valentin MCV (RBC) [Entitic vol] 83.7 fL Normal 81.0-99.0 [facility] Comment on above: Performed By: #### C BC #### [facility] [address] [place] [address] Dr. Steve Valentin MONO # 0.6 103/ul Normal 0.3-0.8 [facility] Comment on above: Performed By: #### C BC #### [facility] [address] [place] [address] Dr. Steve Valentin Monocytes/100 WBC (Bld) 10.0 % Normal 1.7-12.0 [facility] Comment on above: Performed By: #### C BC #### [facility] [address] [place] [address] Dr. Steve Valentin NEUT # 3.9 103/ul Normal 1.4-6.5 [facility] Comment on above: Performed By: #### C BC #### [facility] [address] [place] [address] Dr. Steve Valentin Neutrophils/100 WBC (Bld) 67.7 % Normal 43.0-75.0 [facility] Comment on above: Performed By: #### C BC #### [facility] [address] [place] [address] Dr. Steve Valentin Platelet mean volume (Bld) [Entitic vol] 10.0 fL Normal 9.5-13.5 [facility] Comment on above: Performed By: #### C BC #### [facility] [address] [address] [address] Steve Valentin PLT 200 103/ul Normal 150-450 [facility] Comment on above: Performed By: #### C BC #### [facility] [address] [place] [address] Dr. Steve Valentin RBC 4.67 106/ul Normal 4.20-5.40 [facility] Comment on above: Performed By: #### C BC #### [facility] [address] [address] [address] Steve Valentin WBC 5.7 103/ul Normal 4.0-11.0 [facility] Comment on above: Performed By: #### C BC #### [facility] [address] [place] [address] ABD/PELV W CONon [...] LO [place]STA Date: 2021-12-30 08:30 Normal [facility] Covid-19 PCR (CVDTBH)on SARS-CoV-2 (COVID-19) RNA RADHA+probe Ql (Unsp spec) Not detected Normal NOT DETECTED [facility] Comment on above: Result Comment: [...] for this test is supported by the [place] [employer] and [employer] Service's declaration that [...] used). Performed By: #### C VDTBH #### [facility] [address] [place] [address] Dr. Steve Valentin DIRECT COOMBSon 12-30-2021 DIRECT AMARJIT Negative Normal [facility] Comment on above: Performed By: #### C ANAI MCNAIRTRARSALANN #### [facility] [address] [place] [address] Dr. Steve Valentin LACTATE/LACTIC ACIDon 2021 Lactate [Moles/Vol] 1.2 mmol/L Normal 0.4-1.9 [facility] Comment on above: Performed By: #### L ACT #### [facility] [address] [place] [address] Dr. Steve Valentin PROF 14(COMP METB)on 022 Albumin [Mass/Vol] 3.4 g/dL Normal 3.4-5.0 [facility] Comment on above: Performed By: #### C MP, HSTROPN #### [facility] [address] [address] [address] Steve Valentin Albumin/Globulin [Mass ratio] 1.1 {ratio} Normal [facility] Comment on above: Performed By: #### C MP, HSTROPN #### [facility] [address] [address] [address] Steve Valentin ALP [Catalytic activity/Vol] 66 U/L Normal 46-116 [facility] Comment on above: Performed By: #### C MP, HSTROPN #### [facility] [address] [address] [address] Steve Valentin ALT [Catalytic activity/Vol] 18 U/L Normal 14-59 [facility] Comment on above: Performed By: #### C MP, HSTROPN #### [facility] [address] [place] [address] Dr. Steve Valentin Anion gap [Moles/Vol] 9.1 mmol/L Normal [facility] Comment on above: Performed By: #### C MP, HSTROPN #### [facility] [address] [address] [address] Steve Valentin AST [Catalytic activity/Vol] 14 U/L Critically low 15-37 [facility] Comment on above: Performed By: #### C MP, HSTROPN #### [facility] [address] [place] [address] Dr. Steve Valentin Bilirubin [Mass/Vol] 0.3 mg/dL Normal 0.2-1.0 [facility] Comment on above: Performed By: #### C MP, HSTROPN #### [facility] [address] [place] [address] Dr. Steve Valentin Calcium [Mass/Vol] 9.2 mg/dL Normal 8.5-10.1 [facility] Comment on above: Performed By: #### C MP, HSTROPN #### [facility] [address] [address] [address] Steve Valentin Chloride [Moles/Vol] 104 mmol/L Normal 98-107 [facility] Comment on above: Performed By: #### C MP, HSTROPN #### [facility] [address] [address] [address] Steve Valentin CO2 [Moles/Vol] 25.5 mmol/L Normal 21.0-32.0 [facility] Comment on above: Performed By: #### C MP, HSTROPN #### [facility] [address] [address] [address] Steve Valentin Creatinine [Mass/Vol] 0.94 mg/dL Normal 0.55-1.02 [facility] Comment on above: Performed By: #### C MP, HSTROPN #### [facility] [address] [address] [address] Steve Valentin EGFR-AF PAKISTANI >60 Normal >=60 [facility] Comment on above: Performed By: #### C MP, HSTROPN #### [facility] [address] [address] [address] Steve Valentin EGFR-NON AF PAKISTANI >60 Normal >=60 [facility] Comment on above: Performed By: #### C MP, HSTROPN #### [facility] [address] [address] [address] Steve Valentin Globulin (S) [Mass/Vol] 3.1 g/dL Normal [facility] Comment on above: Performed By: #### C MP, HSTROPN #### [facility] [address] [address] [address] Steve Valentin Glucose [Mass/Vol] 98 mg/dL Normal 74-106 [facility] Comment on above: Performed By: #### C MP, HSTROPN #### [facility] [address] [address] [address] Steve Valentin Potassium [Moles/Vol] 3.6 mmol/L Normal 3.5-5.1 [facility] Comment on above: Performed By: #### C MP, HSTROPN #### [facility] [address] [address] [address] Steve Valentin Protein [Mass/Vol] 6.5 g/dL Normal 6.4-8.2 [facility] Comment on above: Performed By: #### C MP, HSTROPN #### [facility] [address] [address] [address] Steve Valentin Sodium [Moles/Vol] 135 mmol/L Critically low 136-145 [facility] Comment on above: Performed By: #### C MP, HSTROPN #### [facility] [address] [address] [address] Steve Valentin Urea nitrogen [Mass/Vol] 11.0 mg/dL Normal 7.0-18.0 [facility] Comment on above: Performed By: #### C TABBY, HSTROPN #### [facility] [address] [place] [address] Dr. Steve Valentin Urea nitrogen/Creatinine [Mass ratio] 11.7 mg/mg Normal [facility] Comment on above: Performed By: #### C TABBY, HSTROPN #### [facility] [address] [place] [address] Dr. Steve Valentin TROPONIN, HIGH SENSITIVITYon 12-30-2021 HSTROP 8.6 pg/mL Normal 4.0-51.3 [facility] Comment on above: Result Comment: CUT- OFF POINTS HAVE BEEN ESTABLISHED BASED ON THE FOURTH UNIVERSAL DEFINITIONS OF MYOCARDIAL INFARCTION. THE UPPER REFERENCE LIMIT (URL) OF TROPONIN, DEFINED THE 99TH PERCENTILE OF cTnI DISTRIBUTION IN A REFERENCE POPULATION, HAS BEEN CONFIRMED THE DECISION THRESHOLD FOR CO DIAGNOSIS. Performed By: #### C TABBY, HSTROPN #### [facility] [address] [place] [address] Dr. Steve Valentin TYPE AND SCREENon 12-30-2021 TYPE AND SCREEN Positive Normal [facility] Comment on above: Performed By: #### T NS #### [facility] [address] [place] [address] Dr. Steve Valentin XR CERVICAL SPINE (2-3 [...] Yaritza Pinedo MD 01/20/20 Final result Normal [facility] Multilevel degenerative changes [place], [place] EXAMINATION: XRAY VIEWS OF THE CERVICAL [...] dislocation or significant prevertebral soft tissue swelling [place], [place] Tarik, Mhpn Incoming Radiant Results From [employer] - 01/20/2020 11:34 AM EDT EXAMINATION: XRAY [...] soft tissue swelling IMPRESSION: Multilevel degenerative changes [place] XR LUMBAR SPINE (2-3 VIEWS)o n [...] Mitesh Ho MD 01/20/20 Final result Normal [facility] No acute abnormality lumbosacral spine. Degenerative findings most severe at L5-S1, with evidence DDD. [facility] [place] EXAMINATION: THREE XRAY VIEWS OF THE LUMBAR [...] Large amount of retained stool [facility]. [facility] [place] Mhpn Incoming Radiant Results From [facility] - 01/20/2020 12:11 PM EDT EXAMINATION: THREE [...] most severe at L5-S1, with evidence DDD. [facility] [employer] Hematologyon 01-25-2018 Basophils Auto #/vol (Bld) 0.7 % Invalid Interpretation Code [facility] Basophils/100 WBC Auto (Bld) 0.0 K/uL Invalid Interpretation Code 0.0-0.1 [facility] Eosinophils/100 WBC Auto (Bld) 3.2 % Invalid Interpretation Code [facility] Erythrocyte distribution width Auto Ratio (RBC) 14.2 % Invalid Interpretation Code 10.8-14.8 [facility] Hematocrit Auto Volume Fraction (Bld) 34.70 % Invalid Interpretation Code 36.0-48.0 [facility] Hemoglobin S Solubility test Ql (Bld) 11.7 Invalid Interpretation Code 12.0-16.0 [facility] Lymphocytes/100 WBC Auto (Bld) 43.3 % Invalid Interpretation Code [facility] MCH Auto Entitic mass (RBC) 27.1 pg Invalid Interpretation Code 27.0-34.0 [facility] MCHC Auto mass conc (RBC) 33.7 g/dL Invalid Interpretation Code 31.0-36.0 [facility] MCV Auto Entitic volume (RBC) 80.5 fL Invalid Interpretation Code 80.-100. [facility] Monocytes/100 WBC Auto (Bld) 6.5 % Invalid Interpretation Code [facility] Neutrophils/100 WBC Auto (Bld) 46.1 % Invalid Interpretation Code [facility] Nucleated RBC/100 WBC Ratio (Bld) 0.1 10*3/uL Invalid Interpretation Code 0.1-0.4 [facility] Nucleated RBC/100 WBC Ratio (Bld) 1.9 10*3/uL Invalid Interpretation Code 0.8-5.2 [facility] Nucleated RBC/100 WBC Ratio (Bld) 0.3 10*3/uL Invalid Interpretation Code 0.1-0.9 [facility] Nucleated RBC/100 WBC Ratio (Bld) 2.0 10*3/uL Invalid Interpretation Code 1.3-9.1 [facility] RBC Auto #/vol (Bld) 4.310 10*6/uL Invalid Interpretation Code 4.00-5.50 [facility] Metabolic Panelon 01-25-2018 Albumin mass conc 4.10 g/dL Invalid Interpretation Code 3.5-5.2 [facility] ALP enzyme act/vol 50 U/L Invalid Interpretation Code 30-111 [facility] ALT enzyme act/vol 14 U/L Invalid Interpretation Code 5-40 [facility] Anion gap 3 molar conc 12 mmol/L Invalid Interpretation Code 10-19 [facility] AST enzyme act/vol 13 U/L Invalid Interpretation Code 9-40 [facility] Calcium mass conc 9.90 mg/dL Invalid Interpretation Code 8.5-10.5 [facility] Chloride molar conc 103 mmol/L Invalid Interpretation Code 95-107 [facility] CO2 molar conc 28 mmol/L Invalid Interpretation Code 19-31 [facility] Creatinine mass conc 1.0 mg/dL Invalid Interpretation Code 0.6-1.3 [facility] Glucose mass conc 89 mg/dL Invalid Interpretation Code 70-99 [facility] Potassium molar conc 4.30 mmol/L Invalid Interpretation Code 3.5-5.4 [facility] Protein mass conc 6.0 g/dL Invalid Interpretation Code 6.1-8.3 [facility] Protein mass conc 0.59 g/dL Invalid Interpretation Code <0.5 [facility] Sodium molar conc 143 mmol/L Invalid Interpretation Code 135-146 [facility] Urea nitrogen mass conc 14.0 mg/dL Invalid Interpretation Code 8-23 [facility] Otheron 01-25-2018 Bilirubin Ql (U) 0.2 Invalid Interpretation Code <1.3 [facility] WBC LM Ql (Sput) 4.4 Invalid Interpretation Code 3.7-10.8 [facility] 74.5 Invalid Interpretation Code >59 [facility] 237 Invalid Interpretation Code 150.-450. 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 Normal [facility] Otheron 09-20-2017 3 Invalid Interpretation Code [facility] 3 Invalid Interpretation Code [facility]acon 09-14-2017 Cholesterol 220 mg/dL Invalid Interpretation Code <200 [facility] HDL Cholesterol 77.0 mg/dL Invalid Interpretation Code >39 [facility] Triglyceride 113.0 mg/dL Invalid Interpretation Code <150 [facility] Hematologyon 09-14-2017 Basophils Auto #/vol (Bld) 1.0 % Invalid Interpretation Code [facility] Basophils/100 WBC Auto (Bld) 0.1 K/uL Invalid Interpretation Code 0.0-0.1 [facility] Eosinophils/100 leukocytes 2.9 % Invalid Interpretation Code [facility] Erythrocyte distribution width Auto Ratio (RBC) 14.1 % Invalid Interpretation Code 10.8-14.8 [facility] Erythrocytes (RBC) 4.230 10*6/uL Invalid Interpretation Code 4.00-5.50 [facility] Hematocrit (HCT) 37.0 % Invalid Interpretation Code 36.0-48.0 [facility] Work [facility]: Hemoglobin S presence 11.7 Invalid Interpretation Code 12.0-16.0 [facility] Lipoprotein a mass conc 0.2 10*3/uL Invalid Interpretation Code 0.1-0.4 [facility] Lipoprotein a mass conc 2.0 10*3/uL Invalid Interpretation Code 0.8-5.2 [facility] Lipoprotein a mass conc 0.5 10*3/uL Invalid Interpretation Code 0.1-0.9 [facility] Lipoprotein a mass conc 2.6 10*3/uL Invalid Interpretation Code 1.3-9.1 [facility] Lymphocytes/100 leukocytes 37.6 % Invalid Interpretation Code [facility] MCH 27.7 pg Invalid Interpretation Code 27.0-34.0 [facility] MCHC mass conc (RBC) 31.6 g/dL Invalid Interpretation Code 31.0-36.0 [facility] [employer] MCV 87.5 fL Invalid Interpretation Code 80.-100. [facility] Monocytes/100 leukocytes 8.8 % Invalid Interpretation Code [employer] [facility] Neutrophils/100 leukocytes 49.5 % Invalid Interpretation Code [facility] WBC (Leukocytes) 5.2 10*3/uL Invalid Interpretation Code 3.7-10.8 [facility] Otheron 09-14-2017 Cholesterol crystals Infrared spectroscopy Ql (Stone) 220 mg/dL Invalid Interpretation Code <200 [facility] Cholesterol to HDL Ratio 2.9 {ratio} Invalid Interpretation Code <5 [facility] LDL to HDL Ratio 1.6 Invalid Interpretation Code <3.5 [facility] Lipoprotein.beta/Lipo protein.alpha mass ratio 1.6 Invalid Interpretation Code <3.5 [facility] PreB-LP SerPl-mCnc 23.0 mg/dL Invalid Interpretation Code <30 [facility] PreB-LP SerPl-mCnc 120.0 mg/dL Invalid Interpretation Code <130 [facility] WBC LM Ql (Sput) 5.2 Invalid Interpretation Code 3.7-10.8 [facility] 298 Invalid Interpretation Code 150.-450. [facility] Thyroidon 09-14-2017 Thyroid stimulating hormone (TSH) 2.270 uIU/mL Invalid Interpretation Code 0.40-4.10 [facility] Thyroxine (T4) free 0.990 ng/dL Invalid Interpretation Code 0.80-1.90 [facility] Vital Signs Date Time Vital Sign Value Performing Clinician Ni barnard 01-31-2024 [id number]:17040 Body mass index (BMI) [Ratio] 62.69 kg/m2 Erica Pompa NP Work Phone: [facility] 01-31-2024 14:17-0400 Body temperature 97.2 [degF] Erica Alexanderk RN FIELD CASE MANAGER Work Phone: [facility] 01-31-2024 14:17-0400 Body weight 145.6 kg Erica Alexanderk RN FIELD CASE MANAGER Work Phone: [facility] 01-31-2024 14:17-0400 Diastolic blood pressure 80 mm[Hg] Erica Siddiquitrick RN FIELD CASE MANAGER Work Phone: [facility] 01-31-2024 14:17-0400 Heart rate 57 /min Erica Alexanderk RN FIELD CASE MANAGER Work Phone: [facility] 01-31-2024 14:17-0400 SaO2% (BldA) [Mass fraction] 94 % Erica Alexanderk RN FIELD CASE MANAGER Work Phone: [facility] 01-31-2024 14:17-0400 Systolic blood pressure 152 mm[Hg] Erica Alexanderk RN FIELD CASE MANAGER Work Phone: [facility] 02-13-2018 13:08-0400 BMI (Body Mass Index) 56.47 kg/m2 [facility] 02-13-2018 13:08-0400 Body Temperature 98 [degF] [facility] 02-13-2018 13:08-0400 BP Diastolic 80 mm[Hg] [facility] 02-13-2018 13:08-0400 BP Systolic 124 mm[Hg] [facility] 02-13-2018 13:08-0400 BSA (Body Surface Area) 2.39 m2 [facility] 02-13-2018 13:08-0400 Height 153.67 cm [facility] 02-13-2018 13:08-0400 Pulse (Heart Rate) 74 /min Leda Meehan [facility] 02-13-2018 13:08-0400 Pulse Oximetry 97 % Leda Agrawal [facility] 02-13-2018 13:08-0400 Respiratory Rate 20 /min Leda Agrawal [facility] 02-13-2018 13:08-0400 Weight 133.36 kg Leda Agrawal [facility] 02-13-2018 10:08-0400 Body height 153.67 cm Leda Agrawal CNP Work Phone: [facility] Work Phone: 02-13-2018 10:08-0400 Body mass index (BMI) [Ratio] 56.5 kg/m2 Leda Agrawal CNP Work Phone: [facility] Work Phone: 02-13-2018 10:08-0400 Body surface area Derived from formula 2.21 m2 Leda Agrawal CNP Work Phone: [facility] Work Phone: 02-13-2018 10:08-0400 Body temperature 98 [degF] Leda Agrawal CNP Work Phone: [facility] Work Phone: 02-13-2018 10:08-0400 Body weight 133.36 kg Leda Agrawal CNP Work Phone: [facility] Work Phone: 02-13-2018 10:08-0400 Diastolic blood pressure 80 mm[Hg] Leda Agrawal CNP Work Phone: [facility] Work Phone: 02-13-2018 10:08-0400 Heart rate 74 /min Leda Agrawal CNP Work Phone: [facility] Work Phone: 02-13-2018 10:08-0400 Respiratory rate 20 /min Leda Agrawal CNP Work Phone: [facility] Work Phone: 02-13-2018 10:08-0400 Systolic blood pressure 124 mm[Hg] Leda Agrawal CNP Work Phone: [facility] Work Phone: 01-25-2018 12:47-0400 BMI (Body Mass Index) 56.47 kg/m2 [facility] 01-25-2018 12:47-0400 Body Temperature 98.4 [degF] [facility] 01-25-2018 12:47-0400 BP Diastolic 82 mm[Hg] [facility] 01-25-2018 12:47-0400 BP Systolic 122 mm[Hg] [facility] 01-25-2018 12:47-0400 BSA (Body Surface Area) 2.39 m2 [facility] 01-25-2018 12:47-0400 Height 153.67 cm [facility] 01-25-2018 12:47-0400 P[facility] (Heart Rate) 73 /[facility] 01-25-2018 12:47-0400 Pulse Oximetry 96 % [facility] 01-25-2018 12:47-0400 Respiratory Rate 18 /min [facility] 01-25-2018 12:47-0400 Weight 133.36 kg [facility] 01-25-2018 09:47-0400 Body height 153.67 cm Leda Agrawal [facility] Work Phone: [facility] Work Phone: 01-25-2018 09:47-0400 Body mass index (BMI) [Ratio] 56.5 kg/m2 Leda Agrawal CNP Work Phone: [facility] Work Phone: 01-25-2018 09:47-0400 Body surface area Derived from formula 2.21 m2 Leda Agrawal CNP Work Phone: [facility] Work Phone: 01-25-2018 09:47-0400 Body temperature 98.4 [degF] Leda Agrawal CNP Work Phone: [facility] Work Phone: 01-25-2018 09:47-0400 Body weight 133.36 kg Leda Agrawal CNP Work Phone: [facility] Work Phone: 01-25-2018 09:47-0400 Diastolic blood pressure 82 mm[Hg] Leda Agrawal CNP Work Phone: [facility] Work Phone: 01-25-2018 09:47-0400 Heart rate 73 /min Leda Agrawal CNP Work Phone: [facility] Work Phone: 01-25-2018 09:47-0400 Respiratory rate 18 /min Leda Agrawal CNP Work Phone: [facility] Work Phone: 01-25-2018 09:47-0400 Systolic blood pressure 122 mm[Hg] Leda Agrawal CNP Work Phone: [facility] Work Phone: 11-14-2017 18:20-0400 BMI (Body Mass Index) 56.47 kg/m2 Leda Agrawal [facility] 11-14-2017 18:20-0400 Body Temperature 97.4 [degF] Leda Agrawal [facility] 11-14-2017 18:20-0400 BP Diastolic 80 mm[Hg] [facility] 11-14-2017 18:20-0400 BP Systolic 130 mm[Hg] [facility] 11-14-2017 18:20-0400 BSA (Body Surface Area) 2.39 m2 [facility] 11-14-2017 18:20-0400 Height 153.67 cm [facility] 11-14-2017 18:20-0400 Pulse (Heart Rate) 96 /min [facility] 11-14-2017 18:20-0400 Pulse Oximetry 95 % [facility] 11-14-2017 18:20-0400 Respiratory Rate 18 /min [facility] 11-14-2017 18:20-0400 Weight 133.36 kg [facility] 11-14-2017 15:20-0400 Body height 153.67 cm 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 [facility] Work Phone: [facility] Work Phone: 11-14-2017 15:20-0400 Body mass index (BMI) [Ratio] 56.5 kg/m2 Leda Agrawal [facility] Work Phone: [facility] Work Phone: 11-14-2017 15:20-0400 Body surface area Derived from formula 2.21 m2 Leda Agrawal [facility] Work Phone: [facility] Work Phone: 11-14-2017 15:20-0400 Body temperature 97.4 [degF] Leda Agrawal [employer] Work Phone: [facility] Work Phone: 11-14-2017 15:20-0400 Body weight 133.36 kg Leda Agrawal CNP Work Phone: [facility] Work Phone: 11-14-2017 15:20-0400 Diastolic blood pressure 80 mm[Hg] Leda Agrawal CNP Work Phone: [facility] Work Phone: 11-14-2017 15:20-0400 Heart rate 96 /min Leda Agrawal CNP Work Phone: [facility] Work Phone: 11-14-2017 15:20-0400 Respiratory rate 18 /min Leda Agrawal CNP Work Phone: [facility] Work Phone: 11-14-2017 15:20-0400 Systolic blood pressure 130 mm[Hg] Leda Agrawal CNP Work Phone: [facility] Work Phone: 10-12-2017 11:11-0400 BMI (Body Mass Index) 57.12 kg/m2 [facility] 10-12-2017 11:11-0400 Body Temperature 98.8 [degF] [facility] 10-12-2017 11:11-0400 BP Diastolic 83 mm[Hg] [facility] 10-12-2017 11:11-0400 BP Systolic 122 mm[Hg] [facility] 10-12-2017 11:11-0400 BSA (Body Surface Area) 2.4 m2 [facility] 10-12-2017 11:11-0400 Height 153.67 cm [facility] 10-12-2017 11:11-0400 Pulse (Heart Rate) 79 /min [facility] 10-12-2017 11:11-0400 Pulse Oximetry 99 % [facility] 10-12-2017 11:11-0400 Respiratory Rate 18 /min [facility] 10-12-2017 11:11-0400 Weight 134.89 kg [facility] 10-12-2017 10:11-0400 BMI (Body Mass Index) 57.12 kg/m2 [facility] 10-12-2017 10:11-0400 Body Temperature 98.8 [degF] [facility] 10-12-2017 10:11-0400 BP Diastolic 83 mm[Hg] [facility] 10-12-2017 10:11-0400 BP Systolic 122 mm[Hg] [facility] 10-12-2017 10:11-0400 BSA (Body Surface Area) 2.4 m2 [facility] 10-12-2017 10:11-0400 Height 153.67 cm [facility] 10-12-2017 10:11-0400 Pulse (Heart Rate) 79 /min [facility] 10-12-2017 10:11-0400 Pulse Oximetry 99 % [facility] 10-12-2017 10:11-0400 Respiratory Rate 18 /min [facility] 10-12-2017 10:11-0400 Weight 134.89 kg [facility] 10-12-2017 08:11-0400 Body height 153.67 cm Leda Agrawal CNP Work Phone: [facility] Work Phone: 10-12-2017 08:11-0400 Body mass index (BMI) [Ratio] 57 kg/m2 Leda Agrawal CNP Work Phone: [facility] Work Phone: 10-12-2017 08:11-0400 Body surface area Derived from formula 2.22 m2 Leda Agrawal CNP Work Phone: [facility] Work Phone: 10-12-2017 08:11-0400 Body temperature 98.8 [degF] Leda Agrawal CNP Work Phone: [facility] Work Phone: 10-12-2017 08:11-0400 Body weight 134.72 kg Leda Agrawal CNP Work Phone: [facility] Work Phone: 10-12-2017 08:11-0400 Diastolic blood pressure 83 mm[Hg] Leda Agrawal CNP Work Phone: [facility] Work Phone: 10-12-2017 08:11-0400 Heart rate 79 /min Leda Agrawal CNP Work Phone: [facility] Work Phone: 10-12-2017 08:11-0400 Respiratory rate 18 /min Leda Agrawal CNP Work Phone: [facility] Work Phone: 10-12-2017 08:11-0400 Systolic blood pressure 122 mm[Hg] Leda Agrawal CNP Work Phone: [facility] Work Phone: 09-20-2017 17:04-0400 BP Diastolic 80 mm[Hg] Leda Agrawal [facility] 09-20-2017 17:04-0400 BP Systolic 136 mm[Hg] [facility] 09-20-2017 16:19-0400 BMI (Body Mass Index) 59.21 kg/m2 [facility] 09-20-2017 16:19-0400 Body Temperature 97.1 [degF] [facility] 09-20-2017 16:19-0400 BP Diastolic 80 mm[Hg] [facility] 09-20-2017 16:19-0400 BP Systolic 142 mm[Hg] [facility] 09-20-2017 16:19-0400 BSA (Body Surface Area) 2.44 m2 [facility] 09-20-2017 16:19-0400 Height 153.67 cm [facility] 09-20-2017 16:19-0400 Pulse (Heart Rate) 94 /min [facility] 09-20-2017 16:19-0400 Pulse Oximetry 96 % [facility] 09-20-2017 16:19-0400 Respiratory Rate 18 /min [facility] 09-20-2017 16:19-0400 Weight 139.82 kg [facility] 09-20-2017 16:04-0400 BP Diastolic 80 mm[Hg] [facility] 09-20-2017 16:04-0400 BP Systolic 136 mm[Hg] [facility] 09-20-2017 15:19-0400 BMI (Body Mass Index) 59.21 kg/m2 [facility] 09-20-2017 15:19-0400 Body Temperature 97.1 [degF] [facility] 09-20-2017 15:19-0400 BP Diastolic 80 mm[Hg] [facility] 09-20-2017 15:19-0400 BP Systolic 142 mm[Hg] [facility] 09-20-2017 15:19-0400 BSA (Body Surface Area) 2.44 m2 [facility] 09-20-2017 15:19-0400 Height 153.67 cm [facility] 09-20-2017 15:19-0400 Pulse (Heart Rate) 94 /min [facility] 09-20-2017 15:19-0400 Pulse Oximetry 96 % [facility] 09-20-2017 15:19-0400 Respiratory Rate 18 /min [facility] 09-20-2017 15:19-0400 Weight 139.82 kg [facility] 09-20-2017 14:04-0400 Diastolic blood pressure 80 mm[Hg] Leda Agrawal [employer] Work Phone: [facility] Work Phone: 09-20-2017 14:04-0400 Systolic blood pressure 136 mm[Hg] Leda Agrawal [employer] Work Phone: [facility] Work Phone: 09-20-2017 13:19-0400 Body height 153.67 cm Leda Agrawal [employer] Work Phone: [facility] Work Phone: 09-20-2017 13:19-0400 Body mass index (BMI) [Ratio] 59.2 kg/m2 Leda Agrawal CNP Work Phone: [facility] Work Phone: 09-20-2017 13:19-0400 Body surface area Derived from formula 2.26 m2 Leda Agrawal CNP Work Phone: [facility] Work Phone: 09-20-2017 13:19-0400 Body temperature 97.1 [degF] Leda Agrawal CNP Work Phone: [facility] Work Phone: 09-20-2017 13:19-0400 Body weight 139.71 kg Leda Agrawal CNP Work Phone: [facility] Work Phone: 09-20-2017 13:19-0400 Diastolic blood pressure 80 mm[Hg] Leda Agrawal CNP Work Phone: [facility] Work Phone: 09-20-2017 13:19-0400 Heart rate 94 /min Leda Agrawal CNP Work Phone: [facility] Work Phone: 09-20-2017 13:19-0400 Respiratory rate 18 /min Leda Agrawal CNP Work Phone: [facility] Work Phone: 09-20-2017 13:19-0400 Systolic blood pressure 142 mm[Hg] Leda Agrawal CNP Work Phone: [facility] Work Phone: 09-14-2017 12:35-0400 BMI (Body Mass Index) 59.76 kg/m2 Leda Agrawal [facility] 09-14-2017 12:35-0400 Body Temperature 97 [degF] Leda Agrawal [facility] 09-14-2017 12:35-0400 BP Diastolic 72 mm[Hg] [facility] 09-14-2017 12:35-0400 BP Systolic 122 mm[Hg] [facility] 09-14-2017 12:35-0400 BSA (Body Surface Area) 2.45 m2 [facility] 09-14-2017 12:35-0400 Height 153.67 cm [facility] 09-14-2017 12:35-0400 Pulse (Heart Rate) 71 /min [facility] 09-14-2017 12:35-0400 Pulse Oximetry 97 % [facility] 09-14-2017 12:35-0400 Respiratory Rate 18 /min [facility] 09-14-2017 12:35-0400 Weight 141.13 kg [facility] 09-14-2017 11:35-0400 BMI (Body Mass Index) 59.76 kg/m2 [facility] 09-14-2017 11:35-0400 Body Temperature 97 [degF] [facility] 09-14-2017 11:35-0400 BP Diastolic 72 mm[Hg] [facility] 09-14-2017 11:35-0400 BP Systolic 122 mm[Hg] [facility] 09-14-2017 11:35-0400 BSA (Body Surface Area) 2.45 m2 [facility] 09-14-2017 11:35-0400 Height 153.67 cm Leda Agrawal [facility] 09-14-2017 11:35-0400 Pulse (Heart Rate) 71 /min Leda Agrawal [facility] 09-14-2017 11:35-0400 Pulse Oximetry 97 % 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 [facility] 09-14-2017 11:35-0400 Respiratory Rate 18 /min Leda Agrawal [facility] 09-14-2017 11:35-0400 Weight 141.13 kg 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 [facility] 09-14-2017 09:35-0400 Body height 153.67 cm Leda Agrawal CNP Work Phone: [facility] Work Phone: 09-14-2017 09:35-0400 Body mass index (BMI) [Ratio] 59.7 kg/m2 Leda Agrawal CNP Work Phone: [facility] Work Phone: 09-14-2017 09:35-0400 Body surface area Derived from formula 2.27 m2 Leda Agrawal CNP Work Phone: [facility] Work Phone: 09-14-2017 09:35-0400 Body temperature 97 [degF] Leda Agrawal CNP Work Phone: [facility] Work Phone: 09-14-2017 09:35-0400 Body weight 141.07 kg Leda Agrawal CNP Work Phone: [facility] Work Phone: 09-14-2017 09:35-0400 Diastolic blood pressure 72 mm[Hg] Leda Agrawal CNP Work Phone: [facility] Work Phone: 09-14-2017 09:35-0400 Heart rate 71 /min Leda Tanja [employer] Work Phone: [facility] Work Phone: 09-14-2017 09:35-0400 Respiratory rate 18 /min Leda Agrawal [employer] Work Phone: [facility] Work Phone: 09-14-2017 09:35-0400 Systolic blood pressure 122 mm[Hg] Leda Agrawal [employer] Work Phone: [facility] Work Phone: Encounters Encounter Date Encounter Type Care Provider Facility Start: 05-09-2024 End: 05-09-2024 ambulatory JOHNNY Radha HI [facility] Start: 03-19-2024 End: 03-19-2024 Telephone encounter Roger CHAMPION [facility] Start: 02-16-2024 End: 02-16-2024 Refill Jane Tinajero MANUFACTURING AUTOMATION ENGINEER-[employer] Work Phone: [facility] Start: 01-31-2024 End: 01-31-2024 Bamboo flowsheet Erica Pompa RN FIELD CASE MANAGER Work Phone: [facility] Start: 01-31-2024 End: 01-31-2024 Bamboo flowsheet Erica Pompa RN FIELD CASE MANAGER Work Phone: [facility] Start: 01-31-2024 End: 01-31-2024 Office outpatient visit 10 minutes Erica Pompa RN FIELD CASE MANAGER Work Phone: [facility] Comment on above: Chronic obstructive pulmonary disease with acute exacerbation (CMS/HCC) (Primary Dx); Chronic rhinitis; Bipolar depression (CMS/HCC); ADORE (obstructive sleep apnea); Pulmonary emphysema, unspecified emphysema type (CMS/HCC) Start: 01-31-2024 End: 01-31-2024 Refill Jane Tinajero MANUFACTURING AUTOMATION ENGINEER-[employer] P[employer] HARDENER Work Phone: [facility] Start: 01-31-2024 End: 01-31-2024 ambulatory ERICA COMBSPATRICK Not Available Start: 01-29-2024 End: 01-29-2024 Refill Jane Tinajero APRN-[employer]IDE P[employer] HARDENER Work Phone: [facility] Start: 01-29-2024 End: 01-29-2024 Refill Erica Pompa RN FIELD CASE MANAGER Work Phone: [facility] Comment on above: ARSH (generalized anx iety disorder) ([facility] Start: 01-22-2024 End: 01-22-2024 ambulatory [employer] [facility] Start: 01-12-2024 End: 01-12-2024 ambulatory [facility] Start: 12-19-2023 End: 12-19-2023 ambulatory [facility] Start: 11-29-2023 End: 11-29-2023 ambulatory [facility] Start: 11-09-2023 End: 11-09-2023 ambulatory [facility] Start: 11-07-2023 End: 11-07-2023 ambulatory [facility] Start: 11-07-2023 End: 11-07-2023 ambulatory RASHAAD PHELAN [facility] Start: 11-02-2023 End: 11-02-2023 ambulatory [facility] Start: 11-02-2023 End: 11-02-2023 ambulatory SHAIKH JHONY Not Available Start: 10-20-2023 End: 10-25-2023 Evaluation and management of inpatient [facility] Start: 10-18-2023 End: 10-25-2023 Evaluation and management of inpatient KANCHAN. RANDLE [facility] Start: 10-14-2023 End: 10-19-2023 Emergency department patient visit JOSE TORRES [facility] Start: 10-14-2023 End: 10-18-2023 Evaluation and management of inpatient NOT IN SYSTEM PCP [facility] Start: 04-26-2023 End: 04-26-2023 ambulatory SHAIKH JHONY Not Available Start: 04-15-2022 End: 04-17-2022 ambulatory QUYNH ARCHER Facility:H1 Start: 02-08-2022 End: 02-09-2022 ambulatory NANCI BEEBE Facility:H1 Start: 12-30-2021 End: 12-31-[address] VU RIVERA Facility:H1 Start: 01-20-2020 End: 01-23-2020 Patient encounter procedure [facility] Start: 01-20-2020 End: 01-22-2020 Subsequent hospital visit by physician Roman Palacio Dr Room 4 [facility] Radiology Comment on above: Chronic bilateral lo w back pain without sciatica Chronic neck pain; Chronic bilateral low back pain without sciatica Start: 07-31-2018 Patient encounter procedure Heath Kirkpatrick Facility:[id number] Start: 07-20-2018 End: 07-20-2018 General Leda Tanja CYANIDE POT HARDENER Work Phone: [facility] Work Phone: Start: 02-13-2018 End: 02-13-2018 Patient encounter procedure Leda Tanja CYANIDE POT HARDENER Work Phone: [facility] Work Phone: Start: 02-13-2018 Office outpatient vi sit 15 minutes Leda Tanja Other [facility] Start: 01-25-2018 End: 01-25-2018 Patient encounter procedure Leda Tanja CYANIDE POT HARDENER Work Phone: [facility] Work Phone: Start: 01-25-2018 Office outpatient vi sit 15 minutes Leda Tanja Other [facility] Start: 11-14-2017 Office outpatient vi sit 15 minutes Leda Tanja Other [facility] Start: 11-14-2017 End: 11-14-2017 Patient encounter procedure Leda Agrawal CNP Work Phone: [facility] Work Phone: Start: 10-12-2017 End: 10-12-2017 Patient encounter procedure Leda Agrawal CNP Work Phone: [facility] Work Phone: Start: 10-12-2017 End: 10-12-2017 Office outpatient visit 15 minutes Leda Agrawal Other [facility] Start: 10-12-2017 Polysom 6/>yrs sleep 4/> addl nicky attnd 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 [facility] Start: 10-12-2017 Polysom 6/>yrs sleep w/cpap 4/> [facility] Start: 09-20-2017 End: 09-20-2017 Office outpatient visit 15 minutes Leda Agrawal Other [facility] Start: 09-20-2017 End: 09-20-2017 Patient encounter procedure Leda Agrawal CNP Work Phone: [facility] Work Phone: Start: 09-14-2017 End: 09-14-2017 Patient encounter procedure Leda Agrawal CNP Work Phone: [facility] Work Phone: Start: 09-14-2017 Laboratory examinati on, unspecified Leda Agrawal [facility] Start: 09-14-2017 Colonoscopy w/biopsy single/multiple Leda Agrawal [facility] Start: 09-14-2017 Dxa bone density kourtney dy 1/> sites axial skel Leda Agrawal [facility] Start: 09-14-2017 End: 09-14-2017 Office outpatient new 45 minutes Leda Agrawal Other [facility] Procedures Date Procedure Procedure Detail Performing Clinician Start: 10-19-2023 Adult depression scr eening assessment Jane Tinajero MANUFACTURING AUTOMATION ENGINEER-CYANIDE POT HARDENER Work Phone: Start: 01-20-2020 Radex spine lumbosac ral 2/3 views KEMPSAGER RAVISHANKAR Start: 01-20-2020 Radex spine cervical 2 or 3 views KEMPSAGER RAVISHANKAR Start: 01-20-2020 Radex spine lumbosac ral 2/3 views Kempsager Ravishankar Work Phone: Start: 01-20-2020 Radex spine cervical 2 or 3 views Kempsager Ravishankar Work Phone: Start: 10-14-2019 Colonoscopy Erica henderson RN FIELD CASE MANAGER Work Phone: Start: 02-25-2019 Mammography Erica henderson RN FIELD CASE MANAGER Work Phone: Start: 08-10-2018 Follow-up visit Start: [...] Leda Agrawal Start: 09-14-2017 Lipid panel Leda Alvares philomena Start: 09-14-2017 Pap not indicated Leda Agrawal Start: 09-14-2017 Physical therapy management Leda Agrawal Start: 09-14-2017 Pt-focused hlth risk assmt score doc stnd instrm Leda Agrawal Start: 09-14-2017 Pulmonology. Leda Alvares philomena Plan of Treatment Date Care Activity Detail Author Start: 10-13-2029 Screening for malign ant neoplasm of colon [facility] Start: 01-14-2025 Adult BMI Screening Adult BMI Screen ing [facility] Start: 11-28-2024 Tobacco Screening Tobacco Screening [facility] Start: 10-18-2024 [facility] Start: 10-13-2024 Screening for malign ant neoplasm of colon Colonoscopy [facility] Start: 03-25-2024 End: 03-25-2024 Patient encounter procedure 03/25/2024 10:30 AM EST Office Visit [facility] [address] [place] [phone] Fran Wild MD [address] [place], [place] [id number] [facility] Start: 02-06-2024 End: 02-06-2024 Patient encounter procedure 02/06/2024 1:30 PM EDT Office Visit [facility] [address] [place] [address] Erica Pompa, RN FIELD CASE MANAGER [address] [place] [phone] ELLA EASON Start: 01-31-2024 End: 01-31-2024 Patient encounter procedure 01/31/2024 2:00 PM EDT Office Visit [facility] [address] [place] [phone] Erica Pompa, RN FIELD CASE MANAGER [address] [place] [address] Arrived [facility] Comment on above: Arrived Start: 01-31-2024 End: 01-30-2025 XR Chest 2 Views XR chest 2 views Imaging Routine Chronic obstructive pulmonary disease with acute exacerbation (CMS/HCC) Expected: 01/31/2024, Expires: 01/30/2025 [facility] Work Phone: Comment on above: Expected: 01/31/2024 , Expires: 01/30/2025 Start: 12-24-2023 Influenza vaccination [facility] Start: 01-30-2021 COVID-19 Vaccine (2 - Roxanne risk series) COVID-19 Vaccine (2 - Roxanne risk series) [facility] Start: 04-30-2020 End: 04-30-2020 Office Visit 04/30/2020 Office Visit Neurology Tim Sharma MD [address] [place] [address] [address] [place] [phone] [facility] Start: 02-26-2020 Screening for malign ant neoplasm of breast Mammogram [facility] Start: 12-24-2019 Influenza vaccination Flu vaccine (# 1) [place] Start: 08-31-2019 Screening for malign ant neoplasm of lung Low dose CT lung screening [place] Start: 02-13-2019 Creatinine measurement Creatinine mo [place]itoring [place] Start: 11-30-2018 Potassium monitoring Potassium monit oring [place] Start: 11-08-2018 Lipid panel Lipid screen [place] Start: 08-02-2018 [facility] visit, estab pt Established Palmira young [facility] Work Phone: Start: 10-12-2017 Polysom 6/>yrs sleep 4/> addl nicky attnd Polysomnography with CPAP testing [facility] Start: 10-12-2017 Polysom 6/>yrs sleep w/cpap 4/> addl nicky attnd Polysomnography with CPAP testing [facility] Start: 09-14-2017 Dual energy X-ray ph oton absorptiometry DEXA scan for body composition study [facility] Start: 08-22-2016 Screening for malign ant neoplasm of breast Breast cancer screen [place] Start: 01-24-2016 Screening for malign ant neoplasm of cervix Cervical cancer screen [place] Start: 2014 Screening for malign ant neoplasm of colon Colon cancer screen colonoscopy [place] Start: 2014 Shingles Vaccine (1 of 2) Shingles Vaccine (1 of 2) [place] Start: 1994 Screening for malign ant neoplasm of cervix [facility] Start: 1985 Screening for malign ant neoplasm of cervix Pap Smear [facility] Start: 08-31-1983 Administration of varicella zoster vaccine Zoster (Shingles) Vaccine (1 of 2) [facility] Start: 08-31-1983 DTaP,Tdap and Td Vaccines (1 - Tdap) DTaP,Tdap and Td Vaccines (1 - Tdap) [facility] Start: 08-31-1983 DTaP/Tdap/Td vaccine (1 - Tdap) DTaP/Tdap/Td vaccine (1 - Tdap) [place] Start: 1982 Adult BMI Follow Up Plan Adult BMI F ollow Up Plan [facility] Start: 08-31-1979 HIV screening HIV screen [place], [place] Start: 1970 Pneumococcal 0-64 ye ars Vaccine (1 of 1 - PPSV23) Pneumococcal 0-64 years Vaccine (1 of 1 - PPSV23) [place] Start: 1964 Hepatitis C screening Hepatitis C sc reen [place] Start: 1964 Screening for malign ant neoplasm of colon [facility] Start: 1964 Tobacco Counseling Tobacco Counselin stephanie [facility] Immunizations Immunization Date Immunization Notes Care Provider Fa margity 01-02-2021 COVID-19 Vaccine, vector-nr, rS-Ad26, PF, 0.5mL Jane Tinajero MANUFACTURING AUTOMATION ENGINEER-CYANIDE POT HARDENER Work Phone: [employer] [facility] Payers Date Payer Category Payer Medicaid HMO [facility] MEDICAID [id number] 2022 Medicaid [id number] 2017 Medicaid [id number] [id number] 1959 Private Health Insurance [id number] [id number] 1964 Unknown [id number] 2.16840.1.617545.3.579. 2.356 1964 Unknown [id number] 2.16.840.1.355791.3.579. 2.173 1964 Unknown [id number] 2.16840.1.980291.3.579. 2.173 1964 Unknown [id number] 2.16.840.1.152019.3.579. 2.173 1964 Unknown [id number] 2.16.840.1.692393.3.579. 2.593 1964 Unknown [id number] 2.16.840.1.340922.3.579. 2.593 1964 Unknown [id number] 2.16.840.1.575708.3.579. 2.593 1964 Unknown [id number] 2.16.840.1.896226.3.579. 2.1285 1964 Unknown [id number] 2.16.840.1.686848.3.579. 2.1285 1964 Unknown [id number] 2.16.840.1.655788.3.579. 2.1285 1964 Unknown [id number] 2.16.840.1.264430.3.579. 2.1285 1964 Unknown [id number] 2.16.840.1.593152.3.579. 2.1285 1964 Unknown [id number] 2.16.840.1.408205.3.579. 2.1285 1964 Unknown [id number] 2.16.840.1.249292.3.579. 2.1285 1964 Unknown [id number] 2.16.840.1.628385.3.579. 2.128 1964 Unknown [id number] 2.16.840.1.327774.3.579. 2.1285 1964 Unknown [id number] 2.16.840.1.833688.3.579. 2.1285 1964 Unknown [id number] 2.16.840.1.933213.3.579. 2.1259 1964 Unknown [id number] 2.16.840.1.698106.3.579. 2.1259 1964 Unknown [id number] 2.16.840.1.801288.3.579. 2.1259 Social History Date Type Detail Facility Start: Current every day smoker [facility] Start: 01-20-2020 End: 12-25-2020 Current every day smoker [facility] End: 12-17-2012 History of tobacco use Cigarette Sm[place] Start: 01-20-2020 End: 06-04-2020 Cigarettes smoked current (pack per day) - Reported [facility] Start: 01-20-2020 End: 12-25-2020 Tobacco use and exposure Never used [facility] [place] Start: 01-20-2020 Alcohol intake Current non-dr rod and tube straightener of alcohol (finding) [place] Start: 1965 Sex Assigned At Not on file [place] Exposure to SARS-CoV -2 (event) Not sure [place] Tobacco smoking status Unknown if ever sm [facility] Work Phone: Start: 01-15-2024 Alcoholic beverage intake Ex-drinker (finding) [facility] Start: 06-04-2020 End: 10-19-2023 [facility] Utilities [facility] Has the [employer], [employer], or [employer] threatened to shut off services in your home in past 12Mo No [facility] How often to you hav e a drink containing alcohol? Monthly or less [facility] How many standard drinks containing alcohol do you have on a typical day? 1 or 2 [facility] How often do you hav e 6 or more drinks on 1 occasion? Never [facility] Adolescent depressio n screening assessment 0 [facility] History of tobacco use Passive smoker [facility] Start: 11-02-2023 Alcoholic beverage intake Lifetime non-drinker (finding) [facility] Start: 11-27-2014 Sex Female (finding) [facility] Goals Date Patient Goal Desired Activity [...] confirm their upcoming appt on 03/25/24 in [place] with Fran Wild MD. The patient was instructed to call our office back to further confirm: [phone] documented in this encounter [facility] 03-19-2024 Telephone encounter Note Called patient and left a voicemail to confirm their upcoming appt on 03/25/24 in [place] with Fran Wild MD. The patient was instructed to call our office back to further confirm: [phone] [facility] 01-31-2024 History of Present illness Narrative Associated Problem(s): Chronic obstructive pulmonary disease (CMS/[facility]) Poorly controlled COPD. Currently taking [...] pt to have CXR completed YVAN. Phoned [facility] radiology to call with results. Advised pt if dyspnea, chest pain, dizziness, or worsening symptoms occur to report to ER immediately. Pt verbalized understanding. Pt was following with Pulmonology in [place] 2 years ago, needs established with new Creative Engagement Director. Has hx of ADORE- does not wear [...] Sore throat Was previously seeing Pulmonology in [place], has not been seen in 2 years. Needs to establish with new gang investigator. Review of Systems Constitutional: Negative for activity [...] understanding. Pt was following with Pulmonology in [place] 2 years ago, needs established with new Creative Engagement Director. Has hx of ADORE- does not wear [...] Orders Ambulatory referral to Pulmonology Bipolar depression ([facility]) Relevant Medications lamoTRIgine (LaMICtal) 100 MG tablet Chronic rhinitis Relevant Medications cetirizine (ZyrTEC) 10 MG tablet Emphysema of lung ([facility]/HCC) Relevant Orders Ambulatory referral to Pulmonology documented in this encounter [facility] 01-31-2024 Instructions Erica Pompa NP [...] GO TO ER!!!! documented in this encounter [facility] 12-19-2023 Note Attestation signed by Elizabeth Hi MD at 12/19/2023 8:02 PM GC: I saw this patient. I personally performed the critical/vázquez portions that determines the level of service. I was directly involved in the management and treatment plan of the patient. I reviewed note and agree with the documentation [facility] Progress Note Subjective Danielle Montana is an 58 y.o. 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 She was admitted to [facility] between 10/18/2023-10/25/2023 initially presenting to [facility] with bilateral upper and lower extremity swelling [...] artery disease) ([facility]) Peripheral visual field defect, bilateral [...] GUIDED PERCUTANEO (more content not included)... [facility] 11-07-2023 Note Attestation signed by Elizabeth Hi MD at 11/07/2023 8:44 PM GC: I saw this patient. I personally performed the critical/vázquez portions that determines the level of service. I was directly involved in the management and treatment plan of the patient. I reviewed note and agree with the documentation [facility] New Patient Visit Subjective Chief Complaint: No chief complaint on file. Danielle Montana is an 58 y.o. 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 She was admitted to [facility] between 10/18/2023-10/25/2023 initially presenting to [facility] with bilateral upper and lower extremity swelling [...] Microscopic polyangiitis ([facility]/HCC) Abnormal fasting glucose Acute respiratory failure with hypoxia and hypercarbia ([facility]/HCC) ERIN (acute kidney injury) ([facility]) Anxiety Astigmatism, regular B12 deficiency Bipolar depression ([facility]/HCC) Cancer ([facility]/HCC) Cellulitis of left hand Cervical cancer ([facility]/HCC) Chronic obstructive pulmonary disease ([facility]) Chronic rhinitis COPD with acute exacerbation ([facility]) Emphysema of lung ([facility]) Class 3 severe obesity due to excess calories without serious comorbidity in adult ([facility]) Morbid (severe) obesity due to excess calories ([facility]) Morbid obesity ([facility]) Cluster headache Degenerative arthritis Depression Dysthymic disorder [...] or anxiety ([facility]/HCC) Mouth sores Tongue lesion MRSA (methicillin resistant Staphylococcus aureus) Nausea Non-recurrent acute suppurative otitis media of both ears without spontaneous rupture of tympanic membranes Open angle with borderline findings and high glaucoma risk in both eyes ADORE (obstructive sleep apnea) Osteoporosis Back pain Chest pain on exertion Other chest pain PAD (peripheral artery disease) ([facility]/HCC) Peripheral visual field defect, bilateral Pneumonia of both lungs due to infectious organism Presbyopia Henry's edema of vocal folds Right knee pain Smoking SOB (shortness of breath) Stiff muscles Swollen ankles Tear of articular cartilage of right knee, current, initial encounter Tinnitus (more content not included)... [facility] 02-09-2022 Note PROCEDURE: XR ANKLE RT [...] authenticated by: LO COSTA Date: 2022-02-09 06:49 [facility] 02-09-2022 Note PROCEDURE: XR ANKLE [...] authenticated by: LO COSTA Date: 2022-02-09 06:49 [facility] Evaluation note Includes: Assessments for all patient encountersNo Assessments [facility] Work Phone: Evaluation note Diagnosis ARSH (generalized anxiety disorder) ([facility]) Generalized anxiety disorder documented [facility] encounter [facility] Diagnosis Chronic obstructive pulmonary disease with acute exacerbation ([facility]/HCC)- Primary Chronic rhinitis Bipolar depression ([facility]) Bipolar I disorder, most recent episode (or current) depressed, unspecified ADORE (obstructive sleep apnea) Obstructive sleep apnea (adult) (pediatric) Pulmonary emphysema, unspecified emphysema type ([facility]) documented in this encounter [facility] Narrative History of Present Illness not supported for this document type No History of Present Illness [facility] Work Phone: Instructions Instructions not supported for this document type No Instructions [facility] Work Phone: InstructionsNot on filedocumented in this encounter [facility] System[facility]ructionsNot on filedocumented in this encounter [facility] System[facility] problem outcome Narrative Includes: Evaluations & Outcomes for active Goals No Outcomes [facility] Work Phone: reason for referral (narrative)* Consultation (Routine) - Pending Review Specialty Diagnoses / Procedures Referred By Juan t Referred To Contact Pulmonary Disease Diagnoses Chronic obstructive pulmonary disease with acute exacerbation (CMS/HCC) ADORE (obstructive sleep apnea) Pulmonary emphysema, unspecified emphysema type (CMS/HCC) Procedures CO OFFICE/OUTPATIENT NEW HIGH MDM 60 MINUTES Erica Pompa NP [address] [place] [phone] Referral ID Status Reason Start Date Expiration Date Visits Requested Visits Authorized [id number] Pending Review Specialty Services Required 01/31/2024 07/29/2024 1 1 [facility] Narrative - Reported Review of Systems not supported for this document type No Review of Systems [facility] Work Phone: History of Past Illness Name [...] FoundDocuments on File Type Date Recorded 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 ACP-Advance Directive ACP-Power of Non Profit Director Documents on File Type Date Recorded 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 Durable Power of Non Profit Director 01/12/2021 1:47 PM Living Will 01/12/2021 1:47 [...] section and content) DATE CREATED AUTHOR 10/23/2017 [facility] DATE CREATED AUTHOR AUTHOR'S ORGANIZ ATION 08/01/2018 [facility] DATE CREATED AUTHOR AUTHOR'S ORGANIZ ATION 08/11/2018 [facility] DATE CREATED AUTHOR AUTHOR'S ORGANIZ ATION 01/23/2020 [facility] DATE CREATED AUTHOR AUTHOR'S ORGANIZ ATION 04/19/2022 [facility] DATE CREATED AUTHOR AUTHOR'S ORGANIZ ATION 01/14/2024 [facility] DATE CREATED AUTHOR AUTHOR'S ORGANIZ ATION 01/23/2024 [facility] DATE CREATED AUTHOR AUTHOR'S ORGANIZ ATION 02/02/2024 [facility] EPIC DATE CREATED AUTHOR AUTHOR'S ORGANIZ ATION 05/12/2024 [facility] Reason for Visit (unrecogniz ed section and content) Reason Comments Med Refill Reason Onset Date Comments Med Refill 01/29/2024 Reason Comments Cough Care Teams (unrecognized sec tion and content) Liquid Compounder Relationship Specialty Start Date End Date Shawn Zamora MD [facility] [place], [place] [id number] PCP - General Family Medicine 10/19/23 Liquid Compounder Relationship Specialty Start Date End Date Vu Rivera MD [address] [place] [phone] PCP - General Family Medicine 12/12/23 Erica Pompa NP [address] [place] [address] Nurse Practitioner Family Medicine 12/12/23 Liquid Compounder Relationship Specialty Start Date End Date Vu Rivera MD [address] [place] [address] PCP - General Family Medicine 12/12/23 Erica Pompa NP [address] [place] [address] Nurse Practitioner Family Medicine 12/12/23 Liquid Compounder Relationship Specialty Start Date End Date Vu Rivera MD [address] [place] [address] PCP - General Family Medicine 12/12/23 Erica Pompa NP [address] [place] [address] Nurse Practitioner Family [facility] 12/12/23 Liquid Compounder Relationship Specialty Start Date End Date Shawn Zamora MD [address] [place] [address] PCP - General Family Medicine 10/19/23 FOR [...] BE BASED ON THE PRIMARY CLINICAL RECORDS. [facility] [employer] [facility]. provides no warranty or guarantee of the accuracy or completeness of information in this document.
[2024-05-20 11:40] LABS: Basophils Percent Auto 0.5 % (0.2-2.0); Eosinophils Absolute Auto 0.1 10^3/uL (0.0-0.7); Eosinophils Percent Auto 1.6 % (0.9-7.0); Hemoglobin 13.4 g/dL (12.0-16.0); Immature Granulocytes Abs Auto 0.02 10^3/uL (0.00-0.03); Immature Granulocytes Pct Auto 0.3 % (0.0-0.5); Lymphocytes Absolute Auto 1.9 10^3/uL (1.2-3.8); Lymphocytes Percent Auto 24.2 % (20.5-60.0); Mean Corpuscular HGB Conc 31.2 g/dL (29.9-35.2); Mean Corpuscular Hemoglobin 26.7 pg (26.7-34.0); Mean Corpuscular Volume 85.8 fL (81.0-99.0); Mean Platelet Volume 10.7 fL (9.5-13.5); Monocytes Absolute Auto 0.7 10^3/uL (0.3-0.8); Monocytes Percent Auto 8.9 % (1.7-12.0); Neutrophils Absolute Auto 5.1 10^3/uL (1.4-6.5); Neutrophils Percent Auto 64.5 % (43.0-75.0); Platelet Count 290 10^3/uL (150-450); Red Blood Count 5.01 10^6/uL (4.20-5.40); Red Cell Distribution Width 13.7 % (11.0-15.0); White Blood Count 7.9 10^3/uL (4.0-11.0)
[2024-05-20 11:58] LABS: Estimated Average Glucose 100 mg/dL; Glycohemoglobin A1C 5.1 % (4.5-6.2)
[2024-05-20 12:12] LABS: Alanine Aminotransferase 15 U/L (14-59); Albumin Level 3.4 g/dL (3.4-5.0); Alkaline Phosphatase 62 U/L (46-116); Anion Gap 10.6; Aspartate Amino Transferase 16 U/L (15-37); BUN Creatinine Ratio 12.4; Bilirubin Total 0.5 mg/dL (0.2-1.0); Carbon Dioxide 32.8 mmol/L (21.0-32.0); Chloride 102 mmol/L (98-107); Chol HDL Ratio 1.9; Cholesterol 191 mg/dL (<=200); Estimated GFR (African America 48 (>=60 mL/min/1.73m^2); Estimated GFR (Non-African Ame 39 (>=60 mL/min/1.73m^2); Free T3 2.88 pg/mL (2.18-3.98); Globulin 3.3 g/dL; Glucose 110 mg/dL (74-106); HDL Cholesterol 98 mg/dL (40-60); Potassium 4.4 mmol/L (3.5-5.1); Sodium 141 mmol/L (136-145); Thyroid Stimulating Hormone 2.152 uIU/mL (0.358-3.740); Total Protein 6.7 g/dL (6.4-8.2); Triglycerides 114 mg/dL (<=150); VLDL CHOLESTEROL 22.8 mg/dL
[2024-05-21 04:07] LABS: Vitamin B12 1293 pg/mL (232-1245)
[2024-05-21 07:09] LABS: Insulin 22.1 uIU/mL (2.6-24.9)
== END 2024-05-20 10:55 | disposition home or self-care (01) ==
LOC: LAB 10:56
PROVIDERS: PCP Nurse Practitioner Family; Visit Provider Nurse Practitioner Family
DX: R53.83 Other fatigue (principal)
CPT/HCPCS: 36415; 80053; 80061; 82306; 82607; 83036; 83525; 83540; 84436; 84443; 84481; 85025

== ENCOUNTER 2024-10-21 08:43 | Outpatient (OUT) | payer OTHER, SELFPAY ==
--- OUTSIDE RECORDS SUMMARY | 2024-10-08 11:15 | XMS_ITS | Encounter Summary ---
Author Organization [facility] Address [address] [place] [address] Care Team Providers Care Seamless Hosiery Knitter Name Role Phone Selene Rodrigez CNP Primary Care Provider [phone] Reason for Referral * Cardiac Stress Testing (Routine) - Pending Review Specialty Diagnoses / Procedures Referred By Contdawood t Referred To Contact Cardiology Diagnoses Palpitations Procedures Cardiac event monitor Mehrdad Mccormick MD [address] [place] [address] Phone: tel: fax: Referral ID Status Reason Start Date Expiration Date V isits Requested Visits Authorized [id number] Pending Review 10/08/2024 10/08/2025 1 1 Encounter Details Date Type Department Care Team (Late st Contact Info) Description 10/08/2024 11:15 AM EDT Office Visit [facility] [address] [place] [address] Mehrdad Mccormick MD [address] [place] [address] Palpitations (Primary Dx); Other chest pain; ALMAZAN (dyspnea on exertion); Angina pectoris, unstable (CMS/HCC) Social History Tobacco Use Types Packs/Day Years Used Date Smoking Tobacco: Every Day Cigarettes Passive Smoke Exposure: Current Smokeless Tobacco: Never Tobacco Cessation:Ready to Q uit: Not Asked; Counseling Given: Not Answered Alcohol Use Standard Drinks/Week Comments Never 0 (1 standard drink = 0.6 oz pur e alcohol) Humiliation, Afraid, Rape, and Kick questionnair e Answer Date Recorded Within the last year, have y ou been afraid of your partner or ex-partner? No 05/23/2024 Within the last year, have y ou been humiliated or emotionally abused in other ways by your partner or ex-partner? No Within the last year, have y ou been kicked, hit, slapped, or otherwise physically hurt by your partner or ex-partner? No 05/23/2024 Within the last year, have y ou been raped or forced to have any kind of sexual activity by your partner or ex-partner? No 05/23/2024 Comments Unknown Sex and Gender Information Value Date Recorded Sex Assigned at Not on file Legal Sex Female 10:13 PM EDT Gender Identity Not on file Sexual Orientation Not on file documented as of this encounter Last Filed Vital Signs Vital Sign Reading Time Taken Comments Blood Pressure 106/67 10/08/2024 11:12 AM EDT Pulse 66 10/08/2024 11:12 AM EDT Temperature - - Respiratory Rate - - Oxygen Saturation 96% 10/08/2024 11:12 AM EDT Inhaled Oxygen Concentration - - Weight 144 kg (318 lb) 10/08/2024 11:12 AM EDT Height 152.4 cm (5') 10/08/2024 11:12 AM EDT Body Mass Index 62.11 10/08/2024 11:12 AM EDT documented in this encounter Progress Notes * Mehrdad Mccormick MD - 10/08/2024 11:15 AM EDT Images from the original note were not included. [facility] Cardiology Clinic Note Chief Complaint: Patient here for a 4 month follow up. Patient states she is tired all the time. Patient states she has chest pain that comes and goes and wakes up at night with her heart feeling like its beating out of her chest. Patient complains of ALMAZAN, SOB, leg swelling, and chronic fatigue. HPI: Clarissa Monae is a 59 y.o. female With morbid obesity, Hypertension, HFpEF, COPD She is complaining of worsening exertional shortness of breath. She also has nocturnal palpitationsand dyspnea. She has exertional chest pressure that she states feels like someone is sitting on my chest . Review of Systems Constitutional: Positive for malaise/fatigue. Cardiovascular: Positive for chest pain, dyspnea on exertion and irregular heartbeat. Respiratory: Positive for shortness of breath. Past Medical History She has a past medical history of Abnormal ECG, Cancer (CMS/HCC), CHF (congestive heart failure) (CMS/HCC), COPD (chronic obstructive pulmonary disease) (CMS/HCC), Hypertension, RLS (restless legs syndrome), and Sleep apnea. Surgical History She has a past surgical history that includes IR CT guided percutaneous biopsy renal right (Right, 10/20/2023); Hysterectomy; and Cervix removal. Social History She reports that she has been smoking cigarettes. She has never used smokeless tobacco. She reportsthat she does not drink alcohol and does not use drugs. Family History Family History Problem Relation Name Age of Onset Coronary artery disease Father Allergies Pregabalin, Codeine, and Sulfamethoxazole-trimethoprim Medications Current Outpatient Medications: amLODIPine (Norvasc) 10 mg tablet, Take 1 tablet (10 mg) by mouth in the morning., Disp: 90 tablet,Rfl: 3 blood pressure monitor kit, Use blood pressure kit twice daily, Disp: 1 kit, Rfl: 0 blood pressure monitor kit, 1 kit two times daily., Disp: 1 kit, Rfl: 0 blood pressure monitor kit, 1 kit two times daily., Disp: 1 kit, Rfl: 0 blood pressure monitor kit, 1 kit two times daily., Disp: 1 kit, Rfl: 0 bumetanide (Bumex) 1 mg tablet, Take 1 mg by mouth in the morning., Disp: , Rfl: busPIRone (Buspar) 15 mg tablet, Take 15 mg by mouth every 12 (twelve) hours., Disp: , Rfl: carvedilol (Coreg) 25 mg tablet, Take 25 mg by mouth with breakfast and with evening meal., Disp: ,Rfl: cetirizine (ZyrTEC) 10 mg tablet, Take 10 mg by mouth in the morning., Disp: , Rfl: cholecalciferol (Vitamin D-3) 50 MCG (2000 UT) tablet, Take by mouth in the morning., Disp: , Rfl: dapagliflozin propanediol (Farxiga) 10 mg, Take 1 tablet (10 mg) by mouth in the morning., Disp: 90tablet, Rfl: 3 donepezil (Aricept) 10 mg tablet, Take 25 mg by mouth., Disp: , Rfl: DULoxetine (Cymbalta) [address] capsule, Take 60 mg by mouth., Disp: , Rfl: hydrOXYzine HCL (Atarax) 25 mg tablet, Take 25 mg by mouth every 8 (eight) hours if needed., Disp: , Rfl: lamoTRIgine (LaMICtal) 100 mg tablet, Take 1 tablet by mouth in the morning., Disp: , Rfl: losartan (Cozaar) 25 mg tablet, Take 1 tablet (25 mg) by mouth in the morning., Disp: 90 tablet, Rfl: 3 magnesium oxide (Mag-Ox) 400 mg (241.3 mg magnesium) tablet, Take 400 mg by mouth in the morning., Disp: , Rfl: omeprazole (PriLOSEC) [address] capsule, Take 40 mg by mouth., Disp: , Rfl: terazosin (Hytrin) 1 mg capsule, Take 1 mg by mouth in the morning., Disp: , Rfl: Trelegy Ellipta 200-62.5-25 mcg blister with device, Inhale 1 puff in the morning., Disp: , Rfl: Last Recorded Vitals BP 106/67 (BP Location: Right arm, Patient Position: Sitting) Pulse 66 Ht 1.524 m (5') Wt (!)144 kg (318 lb) SpO2 96% BMI 62.11 kg/m?? Physical Examination: GENERAL: alert and oriented x3, well developed, in no acute distress. HEAD: atraumatic, normocephalic. EYES: SANDHYA, EOMI. NECK: trachea midline, no JVD present, no carotid bruits present. CARDIAC: S1, S2 present. RRR. No murmur, rubs, or gallops. RESPIRATORY: CTAB, no increased effort of breathing, no rales, rhonchi, or wheezing. ABDOMEN: soft, nontender, nondistended. EXTREMITIES: no lower extremity edema, peripheral pulses are 2+ bilaterally. No rash/skin discoloration present. NEURO: strength/sensation equal and symmetric in bilateral upper and lower extremities. PSYCH: appropriate mood, affect, and judgement. INVESTIGATIONS: Labs 04/10/2024: BUN 35, creatinine 1.33 Echocardiogram 03/2024: Global left ventricular systolic function is normal; LVEF 55 to 60%. No significant valvular dysfunction. Unable to assess right-sided pressures due to lack of measurable tricuspid regurgitation. No pericardial effusion. Assessment: Heart failure with preserved ejection fraction Community-acquired bacterial pneumonia COPD Primary hypertension Morbid obesity with a BMI of 60-69.9 COVID-19 Tobacco abuse First-degree heart block Acute kidney injury Palpitations Plan: Continue Bumex 1 mg daily for now; resume losartan 25 mg daily, and Norvasc 10 mg daily. Continue Coreg 25 mg p.o. twice daily. She is to monitor her blood pressure at home a.m. and p.m. an hour after medications and to keep a log. A 30-day event monitor Given heart failure with preserved ejection fraction, she should be on an SGLT2 inhibitor in the form of Farxiga or Jardiance. Will start either and check a basic metabolic panel 1 week later. Given her morbid obesity, and heart failure with preserved ejection fraction, consideration should be given to a GLP-1 receptor agonist such as Ozempic. Will defer to her primary care physician. In addition, given her young age, I would strongly advise her to consider weight loss surgery. We will order a Lexiscan stress test; her weight may be a limiting factor Treat noncardiac comorbidities as clinically appropriate. Return to clinic in 1-2 months or sooner should problems arise Mehrdad Mccormick MD, MPH, [facility], [facility], [facility] Interventional Cardiology Pager Email: [email or web address] documented in this encounter Plan of Treatment Upcoming Encounters Date Type Department Care Team (Late st Contact Info) Description 11/07/2024 10:30 AM EDT Infusion [facility] [address] [place] [id number] 11/21/2024 10:30 AM EDT Infusion [facility] Infusion [address] [place] [phone] 12/18/2024 11:15 AM EDT Office Visit [facility] Heart at [facility] [address] [place] [address] Mehrdad Mccormick MD [address] [facility] [address] [facility] [place] [address] Scheduled Orders Name Type Priority Associated Diagnoses Orde r Schedule Lexiscan Stress Myocardial Perfusion Imaging Cardiac Services Routine Other chest pain ALMAZAN (dyspnea on exertion) Expected: 10/08/2024 (Approximate), Expires: 10/08/2026 Cardiac event monitor Cardiac Services Routine Palpitations Expected: 10/08/2024 (Approximate), Expires: 10/08/2026 documented as of this encounter Visit Diagnoses Diagnosis Palpitations- Primary Other chest pain ALMAZAN (dyspnea on exertion) Other dyspnea and respiratory abnormality Angina pectoris, unstable (CMS/HCC) Intermediate coronary syndrome documented in this encounter Care Teams Seamless Hosiery Knitter Relationship Specialty Start Date End Date Selene Rodrigez CNP [address] [facility], [place] [address] PCP - General Family Medicine 05/20/24 documented as of this encounter
--- OUTSIDE RECORDS SUMMARY | 2024-10-21 08:46 | XMS_ITS | Encounter Summary ---
Author Organization [employer] tem Address [id number] [address] 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 Utilities Answer Date Recorded In the past 12 months has [employer], gas, oil, or water [employer] threatened to shut off services in your home? No 10/19/2023 AUDIT-C Answer Date Recorded Q1: How often do you have a drink containing alc ohol? Monthly or less 10/19/2023 Q2: How many drinks containi ng alcohol do you have on a typical day when you are drinking? 1 or 2 10/19/2023 Q3: How often do you have si x or more drinks on one occasion? Never 10/19/2023 PHQ-2 Answer Date Recorded Total Score 0 10/19/2023 PRAPARE - Transportation Answer Date Re corded In the past 12 months, has l ack of transportation kept you from medical appointments or from getting medications? No 09/23 In the past 12 months, has l ack of transportation kept you from meetings, work, or from getting things needed for daily living? No 10/19/2023 Housing Instability Answer Date Recorde d Are you worried or concerned that in the next two months you may not have stable housing that you own, rent or stay in as a part of a household? No 10/19/2023 Childcare Answer Date Recorded Childcare Unknown 10/03/2018 Employment Answer Date Recorded Employment Unknown 10/03/2018 Hunger Screening Answer Date Recorded Within the past 12 months we worried whether our food would run out before we got money to buy more. Never True 10/19/2023 Within the past 12 months th e food we bought just didn't last and we didn't have money to get more. Never True 10/19/2023 Purpose - Life Answer Date Recorded Purpose and direction in life Unknown Comments No Sex and Gender Information Value Date Recorded Sex Assigned at Not on file Legal Sex Female 11:26 AM EDT Gender Identity Not on file Sexual Orientation Not on file documented as of this encounter Plan of Treatment Not on file documented as of this encounter Goals Goal Patient Goal Type Associated Problems Recent Progress Patient-Stated? Author home General Yes Faye Glass, RN Note: Evaluation of progress towards goal: Patient plans to discharge home with self care and with assistance from family. 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
--- OUTSIDE RECORDS SUMMARY | 2024-10-21 08:46 | XMS_ITS | Encounter Summary ---
Author Organization [employer] tem Address [id number] [address] [place] [address] Care Team Providers Care Corporate Compliance Officer Name Role Phone Adrianne Kelly MD Primary Care Provider [phone] Encounter Details Date Type Department Care Team (Late st Contact Info) Description 10/31/2023 Orders Only [facility] [address] [place] [phone] Alice Mabry LPN Social History Tobacco Use Types Packs/Day Years Used Date Smoking Tobacco: Every Day Cigarettes 1 44 Smokeless Tobacco: Never Alcohol Use Standard Drinks/Week Comments Not Currently 0 (1 standard drink = 0.6 oz pur e alcohol) [facility] Utilities Answer Date Recorded In the past 12 months has [employer] electric, gas, oil, or water company threatened to shut off services in your [...] Progress Patient-Stated? Author home General Yes Faye Glass RN Note: Evaluation of progress towards goal: Patient plans to discharge home with self care and with assistance from family. documented as of this encounter Visit Diagnoses Not on filedocumented in this encounter Additional Health Concerns Assessment Noted Time PHQ-9 Depression Total Score: 0 10/19/19 24 1:09 PM EDT documented as of this encounter Care Teams Corporate Compliance Officer Relationship Specialty Start Date End Date Adrianne Kelly MD [address] [place] [address] PCP - General Family Medicine 10/19/23 documented as of this encounter
--- OUTSIDE RECORDS SUMMARY | 2024-10-21 08:46 | XMS_ITS | Encounter Summary ---
Author Organization [employer] tem Address [id number] [address] [place] [address] Care Team Providers Care Instructor Creeler Name Role Phone Adrianne Kelly MD Primary Care Provider [phone] Encounter Details Date Type Department Care Team (Late st Contact Info) Description 10/25/2023 Orders Only [facility] [address] [place] [phone] Alice Mabry LPN Social History Tobacco Use Types Packs/Day Years Used Date Smoking Tobacco: Every Day Cigarettes 1 44 Smokeless Tobacco: Never Alcohol Use Standard Drinks/Week Comments Not Currently 0 (1 standard drink = 0.6 oz pur e alcohol) [facility] Utilities Answer Date Recorded In the past 12 months has [employer] electric, gas, oil, or water company threatened [...] documented as of this encounter Care Teams Instructor Creeler Relationship Specialty Start Date End Date Adrianne Kelly MD [address] [place] [address] PCP - General Family Medicine 10/19/23 documented as of this encounter
--- OUTSIDE RECORDS SUMMARY | 2024-10-21 08:46 | XMS_ITS | Encounter Summary ---
Author Organization [facility] Address [address] [place] [address] Care Team Providers Care Junior Programmer Name Role Phone Vu Jackson MD Primary Care Provider [phone] Sirisha Pompa HOME APPLIANCE TECH Unavailable [phone] Encounter Details Date Type Department Care Team (Late st Contact Info) Description 04/09/2024 Orders Only [facility] [address] [place] [address] Sheri Marcum MD [address] [place] [address] Social History Tobacco Use Types Packs/Day Years Used Date Smoking Tobacco: Every Day Cigarettes Passive Smoke Exposure: Current Smokeless Tobacco: Never Alcohol Use Standard Drinks/Week Comments Never 0 (1 standard drink = 0.6 oz pur e alcohol) B1300 Health Literacy Answer Date Recor ded How often do you need to hav e someone help you when you read instructions, pamphlets, or other written material from your doctor or pharmacy? Sometimes 02/05/2024 Social Connection and Isolation Panel [NHANES] A nswer Date Recorded In a typical week, how many times do you talk on the phone with family, friends, or neighbors? Twice a week 02/05/2024 How often do you get together with friends or re latives? Never 02/05/2024 How often do you attend bahai or yarsani serv ices? Never 02/05/2024 Do you belong to any clubs o r organizations such as bahai groups, unions, fraternal or athletic groups, or school groups? No 02/05/2024 How often do you attend meet ings of the clubs or organizations you belong to? Never 02/05/2024 Are you , , di vorced, , never , or living with a partner? 02/05/2024 AUDIT-C Answer Date Recorded Q1: How often do you have a drink containing alcohol? Never 02/05/2024 Q2: How many drinks containi ng alcohol do you have on a typical day when you are drinking? Patient does not drink Q3: How often do you have si x or more drinks on one occasion? Never 02/05/2024 Overall Financial Resource Strain (CARDIA) Answe r Date Recorded How hard is it for you to pa y for the very basics like food, housing, medical care, and heating? Not very hard 02/05/2024 PHQ-2 Answer Date Recorded Patient Health Questionnaire-2 Score 0 11/02/2023 Hunger Vital Sign Answer Date Recorded Within the past 12 months, y ou worried that your food would run out before you got the money to buy more. Never true 02/05/20 24 Within the past 12 months, t he food you bought just didn't last and you didn't have money to get more. Never true 02/05/2024 PRAPARE - Transportation Answer Date Re corded In the past 12 months, has l ack of transportation kept you from medical appointments or from getting medications? Yes 01/22 In the past 12 months, has l ack of transportation kept you from meetings, work, or from getting things needed for daily living? No 02/05/2024 Housing Stability Vital Sign Answer Cortez e Recorded In the last 12 months, was t here a time when you were not able to pay the mortgage or rent on time? No 02/05/2024 Number of Times Moved in the Last Year Not on fi le 02/05/2024 At any time in the past 12 m [facility], were you homeless or living in a long term (including now)? No 02/05/2024 Comments Unknown Sex and Gender Information Value Date Recorded Sex Assigned at Not on file Legal Sex Female 10:36 AM EDT Gender Identity Not on file Sexual Orientation Not on file documented as of this encounter Plan of Treatment Not on file documented as of this encounter Procedures Procedure Name Priority Date/Time Associated Diagnosis Comments ECHO TRANSTHORACIC W/ DOPPLER Routine 04/08/2024 8:25 AM EST documented in this encounter Results * ECHO TRANSTHORACIC W/ DOPPLER (04/08/2024 8:25 AM EST) Anatomical Region Laterality Modality Radiographic Shanna ging us Sheri Marcum MD IMG XR PROCEDURES Final Result documented in this encounter Visit Diagnoses Not on filedocumented in this encounter Care Teams Junior Programmer Relationship Specialty Start Date End Date Vu Jackson MD [address] [place] [address] PCP - General Family Medicine 12/12/23 Sirisha Pompa NP [address] [place] [address] Nurse Practitioner Family Medicine 12/12/23 documented as of this encounter
--- OUTSIDE RECORDS SUMMARY | 2024-10-21 08:46 | XMS_ITS | Clinical Summary ---
Author Organization [employer] [facility] tem Address [id number] [address] [place] [address] Care Team Providers Care Wet Suit Gluer Name Role Phone Adrianne Kelly MD Primary Care Provider [phone] Allergies Active Allergy Reactions Criticality Noted Date Comments Sulfamethoxazole-Trime thoprim Hives 11/15/2015 Codeine Vomiting Medium 01/19/2012 Other reaction(s): Nausea And Vomiting Pregabalin Other (See Comments) High 11/15/2015 Mental changes Medications * This document contains information received from the source organization and may not represent a complete record from that organization. rosuvastatin (CRESTOR) 10 mg tablet Take 1 tablet (10 mg total) by mouth in the morning. Active donepeziL (ARICEPT) 5 mg tablet Take 1 tablet (5 mg total) by mouth nightly. Active omeprazole (PriLOSEC) 40 mg capsule Take 1 capsule (40 mg total) by mouth in the morning. Active ipratropium-albute roL (DUO-NEB) 0.5 mg-3 mg(2.5 mg base)/3 mL nebulizerIndicatio ns:Chronic obstructive pulmonary disease, unspecified COPD type ([facility]) Inhale 3 mL by nebulization every 4 (four) hours while awake. 90 mL 01/03/20 21 Active Additional Information Patient not taking.Reported on 01/15/2024 DULoxetine (CYMBALTA) 30 mg capsule Take 1 capsule (30 mg total) by mouth in the morning. 30 capsule 10/26/19 24 Active atovaquone (MEPRON) 750 mg/5 mL suspension Take 10 mL (1,500 mg total) by mouth daily with breakfast. 210 mL 10/26/19 24 Active carvediloL (COREG) 25 mg tablet Take 1 tablet (25 mg total) by mouth in the morning and 1 tablet (25 mg total) before bedtime. 60 tablet 10/25/19 24 Active cyanocobalamin 1000 MCG tablet Take 1 tablet (1,000 mcg total) by mouth in the morning. 30 tablet 10/26/19 24 Active ferrous sulfate 325 (65 FE) mg tablet Take 1 tablet (325 mg total) by mouth daily with breakfast. 30 tablet 10/26/19 24 Active terazosin (HYTRIN) 1 mg capsule Take 1 capsule (1 mg total) by mouth nightly. 30 capsule 10/25/19 24 Active busPIRone (BUSPAR) 5 mg tablet Take 1 tablet (5 mg total) by mouth in the morning and 1 tablet (5 mg total) before bedtime. 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 Ran out Cymbalta and that likely has affected her mood. Resume her medications. Stressed upon the importance of compliance. Follow up in 3 weeks. Non-recurrent acute suppurat marva otitis media of both ears without spontaneous rupture of tympanic membranes 04/26/2023 Overview (10/16/2023): Last Assessment & Plan: Evidence of bilateral otitis media. Called in Augmentin for the patient. ADORE (obstructive sleep apnea) 12/26/2020 Hyperglycemia, drug-induced 12/26/2020 COPD with acute exacerbation 12/25/2020 Urinary tract infection 02/03/2019 Acute respiratory failure with hypoxia and hyper carbia 01/22/2019 Memory change 02/13/2018 Overview (01/22/2019): Overview: Insetting of psychiatric issues, polypharmacy Pneumonia of both lungs due to infectious organi sm 07/14/2017 Peripheral visual field defect, bilateral 2017 Visual hallucination 05/31/2017 ASRH (generalized anxiety disorder) 04/13/2017 Open angle with borderline f indings and high glaucoma risk in both eyes 01/25/2017 Hyperopia 12/15/2016 Astigmatism, regular 12/15/2016 Presbyopia 12/15/2016 PAD (peripheral artery disease) 12/07/2016 Chest pain on exertion 11/11/2016 Henry's edema of vocal folds 06/07/2016 Dysphonia 06/07/2016 Tinnitus of right ear 06/07/2016 Chronic obstructive pulmonary disease 06/07/2016 DNS (deviated nasal septum) 06/07/2016 Smoking 06/07/2016 Tongue lesion 06/03/2016 Cellulitis of left hand 11/15/2015 Essential hypertension 04/20/2015 Morbid (severe) obesity due to excess calories 0 11/08/2013 Dysthymic disorder 11/08/2013 Fibromyalgia syndrome 11/08/2013 Gastroesophageal reflux disease 01/19/2012 Weakness Stiff muscles Swollen ankles SOB (shortness of breath) Osteoporosis Class 3 severe obesity due t o excess calories without serious comorbidity in adult Nausea MRSA (methicillin resistant Staphylococcus aureu s) Mouth sores Morbid obesity Joint pain Hypertension Heartburn GERD (gastroesophageal reflux disease) Fibromyalgia, primary Fibromyalgia Emphysema of lung Dry mouth Depression Degenerative arthritis COPD (chronic obstructive pulmonary disease) Cluster headache Other chest pain Cervical cancer Cancer Overview (09/26/2017): cervical cancer approx 1994 Back pain Anxiety Resolved Problems Problem Noted Date Diagnosed Date Resolved Date Chest pain 10/08/2020 10/20/2020 Abnormal nuclear stress test 11/11/2016 10/20/2020 PVD (peripheral vascular disease) 10/20/2020 Immunizations Immunization Administration Dates Next Due COVID-19 Vaccine, vector-nr, rS-Ad26, PF, 0.5mL 01/02/2021 Family History Medical History Relation Name Comments Alcohol abuse Father Depression Father Heart disease Father Hypertension Father Cataracts Mother Depression Mother Diabetes Mother Hypertension Mother Anxiety disorder Sister Cancer Sister Depression Sister Thyroid disease Sister Glaucoma Son Relation Name Status Comments Father Mother Sister Alive Son Alive Social History Tobacco Use Types Packs/Day Years Used Date Smoking Tobacco: Every Day Cigarettes 1 44 Smokeless Tobacco: Never Tobacco Cessation:Ready to Q uit: No; Counseling Given: Yes Alcohol Use Standard Drinks/Week Comments Not Currently 0 (1 standard drink = 0.6 oz pur e alcohol) 4Less Utilities Answer Date Recorded In the past 12 months has [employer] gas, oil, or water Sensitive Object threatened to shut off services in your [...] on file Sexual Orientation Not on file Last Filed Vital Signs Vital Sign Reading Time Taken Comments Blood Pressure 130/74 01/15/2024 2:38 PM EDT Pulse 68 01/15/2024 2:38 PM EDT Temperature 36.3 C (97.4 F) 11/29/2023 8:53 AM EDT Respiratory Rate 21 11/29/2023 8:53 AM EDT Oxygen Saturation 96% 01/15/2024 2:36 PM EDT Inhaled Oxygen Concentration - - Weight 149.2 kg (329 lb) 01/15/2024 2:36 PM EDT Height 152.4 cm (5') 11/29/2023 8:53 AM EDT Body Mass Index 64.25 11/29/2023 8:53 AM EDT Plan of Treatment Health Maintenance Due Date Last Done Comments Tobacco Counseling 1965 Adult BMI Follow Up Plan 1982 DTaP,Tdap and Td Vaccines (1 - Tdap) 08/31/1983 Zoster (Shingles) Vaccine (1 of 2) 08/31/1983 COVID-19 Vaccine (2 - Roxanne risk series) 01/30/2021 01/02/2021 Colonoscopy 10/13/2024 10/14/2019, 10/14/2019 Depression Screening 10/18/2024 10/19/2023 Tobacco Screening 11/28/2024 11/29/2023 Influenza Vaccine 12/23/2024 Adult BMI Screening 01/14/2025 01/15/2024 Goals Goal Patient Goal Type Associated Problems Recent Progress Patient-Stated? Author home General Yes Faye Glass, GAMAL Note: Evaluation of progress towards goal: Patient plans to discharge home with self care and with assistance from family. Medical Devices Not on file Procedures Procedure Name Priority Date/Time Associated Diagnosis Comments PROVATION COLONOSCOPY Routine 10/14/2019 7:07 AM EDT from Last 3 Months or Most Recently Relevant to Health Maintenance Results * ES colonoscopy imaging (10/14/2019 7:07 AM EDT) Narrative SYSTEMGENERATED, DOCUMENTATION - 10/14/2019 7:07 AM EDT This order has been auto-finalized for image and report archival. *See procedures tab in Epic or report included with PACS images for full interpretation.* Lul Lindsay DO IMG OR IMG ORDERABLES Final Result from Last 3 Months or Most Recently Relevant to Health Maintenance Insurance MEDICAID [facility] MEDICAID Member Subscriber Plan / Payer (Ef fective 2022-Present) Name:Clarissa Monae Relation to Subscriber:Self Name:Clarissa Monae Payer ID:[id number] (NAIC) Group ID:[id number] Type:Not on file Address: [address] [facility] MEDICAID Advance Directives Documents on File Type Date Recorded Patient Cost Accounting Clerk Expl anation Durable Power of Hollow Tile Partition Erector 01/12/2021 1:47 PM Living Will 01/12/2021 1:47 PM DNR Physician Order 01/12/2021 1:47 PM * DNR Comfort Care Arrest (DNR-CCA) [place] (Latest Code Status on File) Date Activated Date Inactivated Comments 10/19/2023 12:20 AM 10/25/2023 7:16 PM * DNR Comfort Care Arrest (DNR-CCA) [place] Date Activated Date Inactivated Comments 10/15/2023 8:24 AM 10/18/2023 11:19 PM * DNR Comfort Care Arrest (DNR-CCA) [place] Date Activated Date Inactivated Comments 12/30/2020 12:36 PM 01/02/2021 4:30 PM * Full Code Date Activated Date Inactivated Comments 12/25/2020 3:50 PM 12/30/2020 12:36 PM * Full Code Date Activated Date Inactivated Comments 10/08/2020 1:02 PM 10/08/2020 6:57 PM Care Teams Wet Suit Gluer Relationship Specialty Start Date End Date Adrianne Kelly MD [address] [id number] PCP - General Family Medicine 10/19/23
--- OUTSIDE RECORDS SUMMARY | 2024-10-21 08:46 | XMS_ITS | Encounter Summary ---
Author Organization [facility] Address [address] [place] [address] Care Team Providers Care Clerk Rating Name Role Phone Vu Jackson MD Primary Care Provider [phone] Sirisha Pompa TRANSFER CLERK Unavailable [phone] Encounter Details Date Type Department Care Team (Late st Contact Info) Description 01/22/2024 Orders Only [facility] [address] [place] [id number] Shaikh Vasquez MD [address] [place] [address] Social History Tobacco Use Types Packs/Day Years Used Date Smoking Tobacco: Every Day Cigarettes Passive Smoke Exposure: Current Smokeless Tobacco: Never Alcohol Use Standard Drinks/Week Comments Never 0 (1 standard drink = 0.6 oz pur e alcohol) PHQ-2 Answer Date Recorded Patient Health Questionnaire-2 Score 0 11/02/2023 Comments Unknown Sex and Gender Information Value Date Recorded Sex Assigned at Not on file Legal Sex Female 10:36 AM EDT Gender Identity Not on file Sexual Orientation Not on file documented as of this encounter Plan of Treatment Not on file documented as of this encounter Procedures Procedure Name Priority Date/Time Associated Diagnosis Comments XR KNEE 3 VIEWS LEFT Routine 01/20/2024 11:14 AM EDT documented in this encounter Results * XR knee 3 views left (01/20/2024 11:14 AM EDT) Anatomical Region Laterality Modality Lower Extremities, Knee Left Radiogra phic Imaging us Shaikh Christina STEINBERG IMG XR PROCEDURES Final Result documented in this encounter Visit Diagnoses Not on filedocumented in this encounter Care Teams Clerk Rating Relationship Specialty Start Date End Date Vu Jackson MD [address] [place] [id number] PCP - General Family Medicine 12/12/23 Sirisha Pompa NP [address] [place] [address] Nurse Practitioner Family Medicine 12/12/23 documented as of this encounter
--- OUTSIDE RECORDS SUMMARY | 2024-10-21 08:46 | XMS_ITS | Encounter Summary ---
Author [facility] Address [id number] [address] [place] [address] Care Team Providers Care Infertility Nurse Name Role Phone Adrianne Kelly MD Primary Care Provider [phone] Encounter Details Date Type Department Care Team (Late st Contact Info) Description 07/10/2019 Documentation [facility] Pul[facility] Medicine [address] [place] [address] Chandrika Ca, DENTAL INTERN-DREDGE PIPEMAN [address], [address] [place] [id number] Social History Tobacco Use Types Packs/Day Years Used Date Smoking Tobacco: Former Cigarettes 2 40 Smokeless Tobacco: Never Comments:pt vented.. Alcohol Use Standard Drinks/Week Comments Yes 0 (1 standard drink = 0.6 oz pur e alcohol) occisionaly Childcare Answer Date Recorded Childcare Unknown 10/03/2018 Employment Answer Date Recorded Employment Unknown 10/03/2018 Comments No Sex and Gender Information Value Date Recorded Sex Assigned at Not on file Legal Sex Female 11:26 AM EDT Gender Identity Not on file Sexual Orientation Not on file documented as of this encounter Plan of Treatment Not on file documented as of this encounter Visit Diagnoses Not on filedocumented in this encounter Additional Health Concerns Infection Onset Date Last Indicated Resolved Time Enteric Rule-Out 06/21/2019 10/01/2019 10/01/2019 11:31 PM EDT documented as of this encounter Care Teams Infertility Nurse Relationship Specialty Start Date End Date Adrianne Kelly MD [address] [place] [address] PCP - General Family Medicine 10/19/23 documented as of this encounter
--- OUTSIDE RECORDS SUMMARY | 2024-10-21 08:46 | XMS_ITS ---
Author Organization [facility] Address [address] [place] [address] Care Team Providers Care Executive Manager Name Role Phone Selene Rodrigez CNP Primary Care Provider [phone] Active Problems Problem Noted Date Diagnosed Date Anxiety 11/06/2023 Cancer 11/06/2023 Overview (11/06/2023): cervical cancer approx 1994 Cervical cancer 11/06/2023 Morbid obesity 11/06/2023 Cluster headache 11/06/2023 Degenerative arthritis 11/06/2023 Dry mouth 11/06/2023 Heartburn 11/06/2023 Joint pain 11/06/2023 Mouth sores 11/06/2023 MRSA (methicillin resistant Staphylococcus aureu s) 11/06/2023 Nausea 11/06/2023 Osteoporosis 11/06/2023 Back pain 11/06/2023 Other chest pain 11/06/2023 SOB (shortness of breath) 11/06/2023 Stiff muscles 11/06/2023 Swollen ankles 11/06/2023 Weakness 11/06/2023 Emphysema of lung 11/02/2023 Class 3 severe obesity due t o excess calories without serious comorbidity in adult 11/02/2023 Depression 11/02/2023 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 Follow up in one month. Hold off neurology referral for now Right knee pain 10/16/2023 Tear of articular cartilage of right knee, current, initial encounter 10/16/2023 ERIN (acute kidney injury) 10/15/2023 Edema of both lower extremities 10/15/2023 Mixed hyperlipidemia 10/15/2023 Hypokalemia 10/15/2023 Bipolar depression 04/26/2023 Overview (11/06/2023): Last Assessment & Plan: On Cymbalta and Lamotrigine. Ran out Cymbalta and that likely has affected her mood. Resume her medications. Stressed upon the importance of compliance. Follow up in 3 weeks. Last Assessment & Plan: On Cymbalta and Lamotrigine. Ran out Cymbalta and that likely has affected her mood. Resume her medications. Stressed upon the importance of compliance. Follow up in 3 weeks. Chronic rhinitis 04/26/2023 Overview (11/06/2023): Last Assessment & Plan: Uses zyrtec daily. C/w same Hyperlipidemia 04/26/2023 Overview (11/06/2023): Last Assessment & Plan: Check Lipid panel. On Crestor. Non-recurrent acute suppurat marva otitis media of both ears without spontaneous rupture of tympanic membranes 04/26/2023 Overview (11/06/2023): Last Assessment & Plan: Evidence of bilateral otitis media. Called in Augmentin for the patient. Last Assessment & Plan: Evidence of bilateral otitis media. Called in Augmentin for the patient. Hyperglycemia, drug-induced 12/26/2020 ADORE (obstructive sleep apnea) 12/26/2020 Overview (11/06/2023): Last Assessment & Plan: Hx of ADORE, her CPAP machine broke. Last sleep study Last sleep study in 2019. Will refer to [facility] Sleep Study. COPD with acute exacerbation 12/25/2020 Urinary tract infection 02/03/2019 Acute respiratory failure with hypoxia and hyper carbia 01/22/2019 Memory change 02/13/2018 Overview (11/06/2023): Overview: Insetting of psychiatric issues, polypharmacy Pneumonia of both lungs due to infectious organi sm 07/14/2017 Peripheral visual field defect, bilateral 2017 Visual hallucination 05/31/2017 ARSH (generalized anxiety disorder) 04/13/2017 Overview (11/06/2023): Last Assessment & Plan: Poorly controlled. Previously used hydroxyzine and it helped. Resent. C/w cymbalta Open angle with borderline f indings and high glaucoma risk in both eyes 01/25/2017 Astigmatism, regular 12/15/2016 Hyperopia 12/15/2016 Presbyopia 12/15/2016 PAD (peripheral artery disease) 12/07/2016 Chest pain on exertion 11/11/2016 Chronic obstructive pulmonary disease 06/07/2016 Overview (11/06/2023): Last Assessment & Plan: Daily symptoms, requires rescue inhaler more or less daily Resent Trelegy - needs PA DNS (deviated nasal septum) 06/07/2016 Dysphonia 06/07/2016 Henry's edema of vocal folds 06/07/2016 Smoking 06/07/2016 Tinnitus of right ear 06/07/2016 Tongue lesion 06/03/2016 Cellulitis of left hand 11/15/2015 Essential hypertension 04/20/2015 Overview (11/06/2023): Last Assessment & Plan: Poorly controlled, likely due to anxiety/prednisone use. She was previously on lisinopril that was discontinued due to ERIN She needs a BP cuff - prescription sent. I will start her on Coreg. She will reach out to us and inform us if she is using anything else for BP Morbid (severe) obesity due to excess calories 0 11/08/2013 Dysthymic disorder 11/08/2013 Fibromyalgia, primary 11/08/2013 Gastroesophageal reflux disease 01/19/2012 Overview (11/06/2023): Last Assessment & Plan: C/w omeprazole. Current Treatment and Therapy Plans No current plan information found. Other Current Plans OP Rituximab (or biosimilar) 1000 mg (D1, D15) Every 6 Months* Plan Start Date: 05/09/2024 Plan Provider:Elizabeth Hi MD Linked Problems Microscopic polyangiitis (CM S/HCC) Treatment Medications riTUXimab-abbs (Truxima) IVP B in 500 mL Past Treatment and Therapy Plans
--- OUTSIDE RECORDS SUMMARY | 2024-10-21 08:46 | XMS_ITS | Encounter Summary ---
Author Organization [facility] Address [id number] [address] [place] [address] Care Team Providers Care Profile Mill Operator Tape Control Name Role Phone Adrianne Kelly MD Primary Care Provider [phone] Encounter Details Date Type Department Care Team (Late st Contact Info) Description 10/01/2020 Orders Only [facility] [address] [place] [address] External, Scanning Provider Social History Tobacco Use Types Packs/Day Years Used Date Smoking Tobacco: Some Days Cigarettes 0.5 40 Smokeless Tobacco: Never Comments:smoked one today Alcohol Use Standard Drinks/Week Comments Not Currently 0 (1 standard drink = 0.6 oz pur e alcohol) sometimes AUDIT-C Answer Date Recorded Q1: How often do you have a drink containing alc ohol? Never 10/10/2019 Average Number of Drinks Not on file 020 Frequency of Binge Drinking Not on file 09/22 Childcare Answer Date Recorded Childcare Unknown 10/03/2018 Employment Answer Date Recorded Employment Unknown 10/03/2018 Purpose - Life Answer Date Recorded Purpose and direction in life Unknown Comments No Sex and Gender Information Value Date Recorded Sex Assigned at Not on file Legal Sex Female 11:26 AM EDT Gender Identity Not on file Sexual Orientation Not on file COVID-19 Exposure Response Date Recorded In the last month, have you been in contact with someone who was confirmed or suspected to have Coronavirus / COVID-19? No / Unsure 09/09/2020 10:13 AM EDT documented as of this encounter Plan of Treatment Not on file documented as of this encounter Procedures Procedure Name Priority Date/Time Associated Diagnosis Comments MULTIPLE LABS Routine 08/26/2020 LIPID PROFILE Routine 08/26/2020 documented in this encounter Results * Lipid profile (08/26/2020) External Cholesterol 247 MANUALLY TRANSCRIBED RESULTS External Cholesterol:Hdl 3.3 MANUALLY TRANSCRIBED RESULTS External Hdl Cholesterol 76 MANUALLY TRANSCRIBED RESULTS External Ldl (Calc) 150 MANUALLY TRANSCRIBED RESULTS External Triglycerides 103 MANUALLY TRANSCRIBED RESULTS External Very Low Lipoprotein 21 MANUALLY TRANSCRIBED RESULTS us Scanning Provider External LAB BLOOD ORDERABLES Edited Result - Final Performing Organization Address City/[facility]/ZIP Co de Phone Number MANUALLY TRANSCRIBED RESULTS * Multiple labs (08/26/2020) us Scanning Provider External [place] [facility] Final Result Performing Organization Address [facility]/ZIP Co de Phone Number MANUALLY TRANSCRIBED RESULTS documented in this encounter Visit Diagnoses Not on filedocumented in this encounter Care Teams Profile Mill Operator Tape Control Relationship Specialty Start Date End Date Adrinane Kelly MD [address] [place] [address] PCP - General Family Medicine 10/19/23 documented as of this encounter
--- OUTSIDE RECORDS SUMMARY | 2024-10-21 08:46 | XMS_ITS | Encounter Summary ---
Author Organization [employer] tem Address [id number] [address] [place] [address] Care Team Providers Care Regulatory Specialist Name Role Phone Adrianne Kelly MD Primary Care Provider [phone] Encounter Details Date Type Department Care Team (Late st Contact Info) Description 10/31/2023 Telephone [facility] [address] [facility] [address] [place] [phone] Alice Mabry LPN Social History Tobacco Use Types Packs/Day Years Used Date Smoking Tobacco: Every Day Cigarettes 1 44 Smokeless Tobacco: Never Alcohol Use Standard Drinks/Week Comments Not Currently 0 (1 standard drink = 0.6 oz pur e alcohol) [facility] Utilities Answer Date Recorded In the past 12 months has [employer], gas, oil, or water company threatened to [...] documented as of this encounter Care Teams Regulatory Specialist Relationship Specialty Start Date End Date Adrianne Kelly MD [address] [place] [address] PCP - General Family Medicine 10/19/23 documented as of this encounter
--- OUTSIDE RECORDS SUMMARY | 2024-10-21 08:46 | XMS_ITS | Encounter Summary ---
Author Organization [place] tem Address [id number] [address] 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) Social History Tobacco Use Types Packs/Day Years Used Date Smoking Tobacco: Every Day Cigarettes 1 44 Smokeless Tobacco: Never Alcohol Use Standard Drinks/Week Comments Not Currently 0 (1 standard drink = 0.6 oz pur e alcohol) [facility] Utilities Answer Date Recorded In the past 12 months has [employer], gas, oil, or water [employer] threatened to shut off services in your [...] documented as of this encounter Care Teams Innovation Analyst Relationship Specialty Start Date End Date Adrianne Kelly MD [address] [place] [id number] PCP - General Family Medicine 10/19/23 documented as of this encounter
--- OUTSIDE RECORDS SUMMARY | 2024-10-21 08:46 | XMS_ITS | Encounter Summary ---
Author Organization [employer] tem Address [id number] [address] [place] [address] Care Team Providers Care Stores Assistant Name Role Phone Adrianne Kelly MD Primary Care Provider [phone] Encounter Details Date Type Department Care Team (Late st Contact Info) Description 11/13/2023 Orders Only [facility] [address] [place] [phone] Alice Mabry LPN Social History Tobacco Use Types Packs/Day Years Used Date Smoking Tobacco: Every Day Cigarettes 1 44 Smokeless Tobacco: Never Alcohol Use Standard Drinks/Week Comments Not Currently 0 (1 standard drink = 0.6 oz pur e alcohol) [facility] Utilities Answer Date Recorded In the past 12 months has [employer], gas, oil, or water company threatened [...] documented as of this encounter Care Teams Stores Assistant Relationship Specialty Start Date End Date Adrianne Kelly MD [address] [place] [address] PCP - General Family Medicine 10/19/23 documented as of this encounter
--- OUTSIDE RECORDS SUMMARY | 2024-10-21 08:46 | XMS_ITS | Encounter Summary ---
Author Organization [facility] Address [address] [place] [address] Care Team Providers Care Machine Learning Intern Name Role Phone Vu Jackson MD Primary Care Provider [phone] Sirisha Pompa BOTTLE LINE WORKER Unavailable [phone] Encounter Details Date Type Department Care Team (Late st Contact Info) Description 04/08/2024 Orders Only [facility] [address] [place] [address] Natalio Bah MD [address] [place] [address] Social History Tobacco Use Types Packs/Day Years [...] Never 02/05/2024 How often do you attend lutheran or congregational serv ices? Never 02/05/2024 Do you belong to any clubs o r organizations such as lutheran groups, unions, fraternal or athletic groups, or [...] any time in the past [address] [facility], were you homeless or living in a m[facility]p (including now)? No 02/05/2024 Comments Unknown Sex and Gender Information Value Date Recorded Sex Assigned at Not on file Legal Sex Female 10:36 AM EDT Gender Identity Not on file Sexual Orientation Not on file documented as of this encounter Plan of Treatment Not on file documented as of this encounter Procedures Procedure Name Priority Date/Time Associated Diagnosis Comments XR CHEST 1 VIEW Routine 04/08/2024 1:42 PM EST documented in this encounter Results * XR chest 1 view (04/08/2024 1:42 PM EST) Anatomical Region Laterality Modality Chest Radiographic Shanna ging Natalio Bah MD IMG XR PROCEDURES Final Resul t documented in this encounter Visit Diagnoses Not on filedocumented in this encounter Care Teams Machine Learning Intern Relationship Specialty Start Date End Date Vu Jackson MD [address] [place] [address] PCP - General Family Medicine 12/12/23 Sirisha Pompa NP [address] [place] [address] Nurse Practitioner Family Medicine 12/12/23 documented as of this encounter
--- OUTSIDE RECORDS SUMMARY | 2024-10-21 08:46 | XMS_ITS | Encounter Summary ---
Author Organization [employer] tem Address [id number] [address] [place] [address] Care Team Providers Care Quality Control Technician Name Role Phone Adrianne Kelly MD Primary Care Provider [phone] Encounter Details Date Type Department Care Team (Late st Contact Info) Description 10/25/2023 Telephone [facility] [address] [facility] [address] [place] [phone] Alice Mabry LPN Social History Tobacco Use Types Packs/Day Years Used Date Smoking Tobacco: Every Day Cigarettes 1 44 Smokeless Tobacco: Never Alcohol Use Standard Drinks/Week Comments Not Currently 0 (1 standard drink = 0.6 oz pur e alcohol) [facility] Utilities Answer Date Recorded In the past 12 months has [employer], gas, oil, or water company threatened to [...] documented as of this encounter Care Teams Quality Control Technician Relationship Specialty Start Date End Date Adrianne Kelly MD [address] [place] [address] PCP - General Family Medicine 10/19/23 documented as of this encounter
--- OUTSIDE RECORDS SUMMARY | 2024-10-21 08:46 | XMS_ITS | Referral Summary ---
Author Organization [facility] Address [address] [place] [address] Care Team Providers Care Business Office Representative Name Role Phone Selene Rodrigez CNP Primary Care Provider [phone] Encounters Date Type Department Care Team Description 10/08/2024 11:15 AM EDT Office Visit [facility] [address] [place] [address] Mehrdad Mccormick MD Palpitations (Primary Dx); Other chest pain; ALMAZAN (dyspnea on exertion); Angina pectoris, unstable (CMS/HCC) 08/28/2024 Refill [facility] [address] [place] [address] Nery Beltran MA Essential hypertension from Last 3 Months Allergies Active Allergy Reactions Criticality Noted Date Comments Codeine GI intolerance,Nause a And Vomiting Medium 01/19/2012 Other reaction(s): Nausea And Vomiting Pregabalin Other,Unknown High 11/15/2015 Mental changes Sulfamethoxazole-Trime thoprim Hives 11/15/2015 Medications busPIRone (Buspar) 15 mg tablet Take 15 mg by mouth every 12 (twelve) hours. Active carvedilol (Coreg) 25 mg tablet Take 25 mg by mouth with breakfast and with evening meal. 4 Active cetirizine (ZyrTEC) 10 mg tablet Take 10 mg by mouth in the morning. 4 Active cholecalciferol (Vitamin D-3) 50 MCG (1999 UT) tablet Take by mouth in the morning. 4 Active donepezil (Aricept) 10 mg tablet Take 25 mg by mouth. 4 Active DULoxetine (Cymbalta) [address] capsule Take 60 mg by mouth. 4 Active Trelegy Ellipta 200-62.5-25 mcg blister with device Inhale 1 puff in the morning. 4 Active hydrOXYzine HCL (Atarax) 25 mg tablet Take 25 mg by mouth every 8 (eight) hours if needed. 4 Active lamoTRIgine (LaMICtal) 100 mg tablet Take 1 tablet by mouth in the morning. 4 Active omeprazole (PriLOSEC) [address] capsule Take 40 mg by mouth. 4 Active terazosin (Hytrin) 1 mg capsule Take 1 mg by mouth in the morning. 4 Active bumetanide (Bumex) 1 mg tablet Take 1 mg by mouth in the morning. 4 Active magnesium oxide (Mag-Ox) 400 mg (241.3 mg magnesium) tablet Take 400 mg by mouth in the morning. 4 Active dapagliflozin propanediol (Farxiga) 10 mgIndications:Ess ential hypertension Take 1 tablet (10 mg) by mouth in the morning. 90 tablet 3 5 05/20/19 Active blood pressure monitor kitIndications:Es sential hypertension Use blood pressure kit twice daily 1 kit 5 Active blood pressure monitor kitIndications:Es sential hypertension 1 kit two times daily. 1 kit 5 06/10/19 26 Active blood pressure monitor kitIndications:Es sential hypertension 1 kit two times daily. 1 kit 5 Active blood pressure monitor kitIndications:Es sential hypertension 1 kit two times daily. 1 kit 5 Active amLODIPine (Norvasc) 10 mg tabletIndications :Essential hypertension Take 1 tablet (10 mg) by mouth in the morning. 90 tablet 3 5 08/29/19 26 Active losartan (Cozaar) 25 mg tabletIndications :Essential hypertension Take 1 tablet (25 mg) by mouth in the morning. 90 tablet 3 5 08/29/19 26 Active cyanocobalamin (Vitamin B-12) 1,000 mcg tablet Take 1 tablet by mouth in the morning. Active FeroSuL 325 mg (65 mg iron) tablet Take 1 tablet by mouth in the morning. 5 Active Active Problems Problem Noted Date Diagnosed [...] sleep study in 2019. Will refer to [facility] Sleep Study. COPD with acute exacerbation [...] (11/06/2023): Last Assessment & Plan: C/w omeprazole. Social History Tobacco Use Types Packs/Day Years [...] Pulse 66 10/08/2024 11:12 AM EDT Temperature 36.2 C (97.2 F) 05/23/2024 10:41 AM EST Respiratory Rate 20 05/23/2024 10:41 AM EST Oxygen Saturation 96% 10/08/2024 11:12 AM EDT Inhaled Oxygen Concentration - - Weight 144 kg (318 lb) 10/08/2024 11:12 AM EDT Height 152.4 cm (5') 10/08/2024 11:12 AM EDT Body Mass Index 62.11 10/08/2024 11:12 AM EDT Plan of Treatment Upcoming Encounters Date Type Department Care Team (Late st Contact Info) Description 11/07/2024 10:30 AM EDT [facility] [address] [place] [address] 11/21/2024 10:30 AM EDT [facility] [address] [place] [address] 12/18/2024 11:15 AM EDT Office Visit [facility] [address] [place] [phone] Mehrdad Mccormick MD [address] [facility] [place] [address] Insurance [facility] MEDICAID Care Teams Business Office Representative Relationship Specialty Start Date End Date Selene Rodrigez CNP [facility] [facility], [place] [address] PCP - General Family Medicine 05/20/24
--- OUTSIDE RECORDS SUMMARY | 2024-10-21 08:46 | XMS_ITS | Clinical Summary ---
Author Organization [facility] Address [address] [place] [address] Care Team Providers Care Cobbler Mckay Name Role Phone Vu Jackson MD Primary Care Provider [phone] Sirisha Pompa HIM CLERK Unavailable [phone] Allergies Active Allergy Reactions Criticality Noted Date Comments Codeine GI intolerance Medium 01/19/2012 Other reaction(s): Nausea And Vomiting Pregabalin Unknown High 11/15/2015 Mental changes Sulfamethoxazole-Trimetho prim Hives 11/15/2015 Medications predniSONE (Deltasone) 20 MG tablet Take 60 mg by mouth in the morning. Take with meals. 4 Active Fluticasone-Umec lidin-Vilant (Trelegy Ellipta) 200-62.5-25 MCG/ACT aerosol powderIndication s:Chronic obstructive pulmonary disease, unspecified COPD type (HCC) Inhale 1 puff Daily 28 each 3 4 Active donepezil (Aricept) 10 MG tabletIndication s: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, psychotic disturbance, mood disturbance, or anxiety (HCC) Take 1 tablet (10 mg) by mouth in the morning. 90 tablet 1 4 Active carvedilol (Coreg) 25 MG tabletIndication s:Primary hypertension Take 1 tablet (25 mg) by mouth in the morning and 1 tablet (25 mg) in the evening. Take with meals. 180 tablet 1 4 Active hydrOXYzine HCl (Atarax) 25 MG tabletIndication s:ARSH (generalized anxiety disorder) Take 1 tablet (25 mg) by mouth every 8 (eight) hours if needed for anxiety 270 tablet 1 4 Active omeprazole (PriLOSEC) [address] capsuleIndicatio ns:Gastroesophag eal reflux disease without esophagitis Take 1 capsule (40 mg) by mouth in the morning. 90 capsule 1 4 Active DULoxetine (Cymbalta) [address] capsuleIndicatio ns:ARSH (generalized anxiety disorder),Bipola r depression (HCC) Take 1 capsule (60 mg) by mouth in the morning. 90 capsule 1 4 Active busPIRone (Buspar) 15 MG tabletIndication s:ARSH (generalized anxiety disorder) Take 1 tablet (15 mg) by mouth every 12 (twelve) hours 180 tablet 4 Active bumetanide (Bumex) 1 MG tablet Take 1 mg by mouth in the morning. 4 Active cholecalciferol (Vitamin D-3) 125 MCG (5000 UT) tablet Take 5,000 Units by mouth in the morning. 4 Active meloxicam (Mobic) 15 MG tablet 4 Active cetirizine (ZyrTEC) 10 MG tabletIndication s:Chronic rhinitis Take 1 tablet (10 mg) by mouth Daily 90 tablet 4 Active lamoTRIgine (LaMICtal) 100 MG tabletIndication s:Bipolar depression (HCC) Take 1 tablet (100 mg) by mouth in the morning. 30 tablet 2 4 Active albuterol HFA 90 mcg/act inhalerIndicatio ns:Chronic obstructive pulmonary disease with acute exacerbation (HCC) Inhale 2 puffs every 4 (four) hours if needed for wheezing or shortness of breath 18 g 2 4 Active ipratropium-albu terol (Duo-Neb) 0.5-2.5 mg/3 mL nebulizer solutionIndicati ons:Chronic obstructive pulmonary disease with acute exacerbation (HCC) Take 3 mL by nebulization every 6 (six) hours if needed for wheezing 360 mL 2 4 Active Active Problems Problem Noted Date Diagnosed Date Class 3 severe obesity due t o excess calories without serious comorbidity in adult 11/02/2023 Depression 11/02/2023 Emphysema of lung 11/02/2023 Microscopic polyangiitis 10/27/2023 Assessment & Plan (11/02/2023 11:02 AM EDT): New diagnosis, on prednisone. Scheduled to receive rituximab. 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 Follow up in one month. Hold off neurology referral for now ERIN (acute kidney injury) 10/15/2023 Bipolar depression 04/26/2023 Assessment & Plan (04/26/2023 1:17 PM EST): On Cymbalta and Lamotrigine. Ran out Cymbalta and that likely has affected her mood. Resume her medications. Stressed upon the importance of compliance. Follow up in 3 weeks. Chronic rhinitis 04/26/2023 Assessment & Plan (11/02/2023 11:01 AM EDT): Uses zyrtec daily. C/w same Assessment & Plan (04/26/2023 1:16 PM EST): Uses zyrtec daily. C/w same Non-recurrent acute suppurat marva otitis media of both ears without spontaneous rupture of tympanic membranes 04/26/2023 Assessment & Plan (04/26/2023 1:16 PM EST): Evidence of bilateral otitis media. Called in Augmentin for the patient. Hyperlipidemia 04/26/2023 Assessment & Plan (04/26/2023 1:18 PM EST): Check Lipid panel. On Crestor. ADORE (obstructive sleep apnea) 12/26/2020 Assessment & Plan (04/26/2023 1:21 PM EST): Hx of ADORE, her CPAP machine broke. Last sleep study Last sleep study in 2019. Will refer to [facility] Sleep Study. ARSH (generalized anxiety disorder) 04/13/2017 Assessment & Plan (11/02/2023 11:02 AM EDT): Poorly controlled. Previously used hydroxyzine and it helped. Resent. C/w cymbalta Chronic obstructive pulmonary disease 06/07/2016 Assessment & Plan (01/31/2024 4:06 PM EDT): Poorly controlled COPD. Currently taking Trelegy daily. [...] understanding. Pt was following with Pulmonology in [place] 2 years ago, needs established with new Oil Field Equipment Mechanic. Has hx of ADORE- does not wear CPAP. Referral sent to Dr. Warner - pulmonology Assessment & Plan (11/02/2023 10:57 AM EDT): Daily symptoms, requires rescue inhaler more or less daily Resent Trelegy - needs PA Assessment & Plan (04/26/2023 1:15 PM EST): Patient has not been using her Trelegy. Presented today with mild COPD exacerbation likely exacerbated due to acute bacterial URTI. Resume trelegy and ventolin as needed Called in prednisone and augmentin Smoking 06/07/2016 Essential hypertension 04/20/2015 Assessment & Plan (11/02/2023 11:01 AM EDT): Poorly controlled, likely due to anxiety/prednisone use. She was previously on lisinopril that was discontinued due to ERIN She needs a BP cuff - prescription sent. I will start her on Coreg. She will reach out to us and inform us if she is using anything else for BP Assessment & Plan (04/26/2023 1:16 PM EST): BP well controlled. On average less than 130/90. Tolerating Anti hypertensive w/o adverse effects. Denies lightheadedness, dizziness, syncope, presyncope. Patient encouraged to continue with home BP monitoring and call office if he experiences orthostatic symptoms or persistently elevated BP. Fibromyalgia, primary 11/08/2013 Gastroesophageal reflux disease 01/19/2012 Assessment & Plan (11/02/2023 11:01 AM EDT): C/w omeprazole. Assessment & Plan (04/26/2023 1:16 PM EST): C/w omeprazole Family History Medical History Relation Name Comments Cancer Brother Hypertension Brother Heart disease Father Hypertension Father Cancer Mother Diabetes Mother Hypertension Mother Cancer Sister Diabetes Sister Hypertension Sister Relation Name Status Comments Brother Father Mother Sister Social History Tobacco Use Types Packs/Day Years Used Date Smoking Tobacco: Every Day Cigarettes Passive Smoke Exposure: Current Smokeless Tobacco: Never Tobacco Cessation:Ready to Q uit: No; Counseling Given: Yes Alcohol Use Standard Drinks/Week Comments Never 0 [...] Never 02/05/2024 How often do you attend catholic or sikh serv ices? Never 02/05/2024 Do you belong to any clubs o r organizations such as catholic groups, unions, fraternal or athletic groups, or [...] any time in the past 12 m [facility], were you homeless or living in a care home (including now)? No 02/05/2024 Comments Unknown Sex and Gender Information Value Date Recorded Sex Assigned at Not on file Legal Sex Female 10:36 AM EDT Gender Identity Not on file Sexual Orientation Not on file Last Filed Vital Signs Vital Sign Reading Time Taken Comments Blood Pressure 152/80 01/31/2024 2:17 PM EDT Pulse 57 01/31/2024 2:17 PM EDT Temperature 36.2 C (97.2 F) 01/31/2024 2:17 PM EDT Respiratory Rate - - Oxygen Saturation 94% 01/31/2024 2:17 PM EDT Inhaled Oxygen Concentration - - Weight 146 kg (321 lb) 01/31/2024 2:17 PM EDT Height 152.4 cm (5') 11/02/2023 10:21 AM EDT Body Mass Index 62.69 11/02/2023 10:21 AM EDT Plan of Treatment Health Maintenance Due Date Last Done Comments CT Colonography 1964 FIT-DNA 1964 FIT 1964 Sigmoidoscopy 1964 Pap Smear 1985 Cervical Cancer Screening 1994 HPV/Cotest 1994 Mammogram 02/26/2020 02/25/2019, 11/22, 08/15/2014 FOBT 10/16/2024 10/17/2023 Influenza Vaccine (Season Ended) 2024 Colonoscopy 10/13/2029 10/14/2019 Colorectal Cancer Screening 10/13/2029 Insurance [employer] MEDICAID Care Teams Cobbler Mckay Relationship Specialty Start Date End Date Vu Jackson MD [address] [place] [id number] PCP - General Family Medicine 12/12/23 Sirisha Pompa NP [address] [place] [address] Nurse Practitioner Family Medicine 12/12/23
--- OUTSIDE RECORDS SUMMARY | 2024-10-21 08:46 | XMS_ITS | Clinical Summary ---
Author Organization [facility] Address [address] [place] [address] Care Team Providers Care Soap Mixer Name Role Phone Selene Rodrigez CNP Primary Care Provider [phone] Allergies Active Allergy Reactions Criticality Noted Date Comments Codeine GI intolerance,Nause a And Vomiting Medium 01/19/2012 Other reaction(s): Nausea And Vomiting Pregabalin Other,Unknown High 11/15/2015 Mental changes Sulfamethoxazole-Trime thoprim Hives 11/15/2015 Medications busPIRone (Buspar) 15 mg tablet Take 15 mg by mouth every 12 (twelve) hours. 4 Active carvedilol (Coreg) 25 mg tablet Take 25 mg by mouth with breakfast and with evening meal. 4 Active cetirizine (ZyrTEC) 10 mg tablet Take 10 mg by mouth in the morning. 4 Active cholecalciferol (Vitamin D-3) 50 MCG (1999) tablet Take by mouth in the morning. [...] the morning. 90 tablet 3 5 05/20/19 26 Active blood pressure monitor kitIndications:Es sential [...] by mouth in the morning. 5 Active FeroSuL 325 mg (65 mg iron) [...] study in 2019. Will refer to [facility] Sleep Study. COPD with acute exacerbation 12/25/2020 [...] (11/06/2023): Last Assessment & Plan: C/w omeprazole. Encounters Date Type Department Care Team Description 10/08/2024 11:15 AM EDT Office Visit [facility] [address] [place] [address] Mehrdad Mccormick MD Palpitations (Primary Dx); Other chest pain; ALMAZAN (dyspnea on exertion); Angina pectoris, unstable (CMS/HCC) 08/28/2024 Refill [facility] [address] [place] [address] Nery Beltran MA Essential hypertension from Last 3 Months Family History Medical History Relation Name Comments Coronary artery disease Father Relation Name Status Comments Father Mother Social History Tobacco Use Types Packs/Day Years [...] Info) Description 11/07/2024 10:30 AM EDT [facility] [address] [place] [address] 11/21/2024 10:30 AM EDT Infusion [facility] Infusion [address] [place] [address] 12/18/2024 11:15 AM EDT Office Visit [facility] [address] [place] [address] Mehrdad Mccormick MD [address] [facility] [place] [place] [address] Health Maintenance Due Date Last Done Comments CT Colonography 1964 Colonoscopy 1964 Colorectal Cancer Screening 1964 FIT-DNA 1964 FIT 1964 FOBT 1964 Sigmoidoscopy 1964 Depression Screening 1976 Pneumococcal Vaccine: Pediat rics (0 to 5 Years) and At-Risk Patients (6 to 64 Years) (1 of 2 - PCV) 08/31/1983 Zoster Vaccines (1 of 2) 08/31/1983 Pap Smear 1985 Adult Tetanus 1986 Cervical Cancer Screening 1994 HPV/Cotest 1994 COVID-19 Vaccine (2 - Jansse n risk series) 01/30/2021 01/02/2021 Mammogram 02/25/2021 02/25/2019 Influenza Vaccine (Season Ended) 2024 HIB Vaccines Aged Out No longer eligi ble based on patient's age to complete this topic HPV Vaccines Aged Out No longer eligi ble based on patient's age to complete this topic IPV Vaccines Aged Out No longer eligi ble based on patient's age to complete this topic Meningococcal B Vaccine Aged Out No l onger eligible based on patient's age to complete this topic Meningococcal Vaccine Aged Out No nidia estefani eligible based on patient's age to complete this topic Rotavirus Vaccines Aged Out No longer eligible based on patient's age to complete this topic Insurance [facility] MEDICAID Care Teams Soap Mixer Relationship Specialty Start Date End Date Selene Rodrigez CNP [address] [place] [address], [place] [address] PCP - General Family Medicine 05/20/24
--- OUTSIDE RECORDS SUMMARY | 2024-10-21 08:46 | XMS_ITS | Encounter Summary ---
Author Organization [facility] Address [address] [place] [address] Care Team Providers Care Market Risk Specialist Name Role Phone Shaikh DIRIS Vasquez Primary Care Provider [phone] Shaikh IDRIS Vasquez Primary Care Provider [phone] Vu Jackson MD Primary Care Provider [phone] Sirisha Pompa VICTIMS ADVOCATE CLERK/SPECIALIST Unavailable Encounter Details Date Type Department Care Team (Late st Contact Info) Description 07/21/2023 Orders Only [facility] [address] [place] [address] Natalio Bah MD [address] [place] [address] Social History Tobacco Use Types Packs/Day Years Used Date Smoking Tobacco: Every Day Cigarettes Smokeless Tobacco: Never Alcohol Use Standard Drinks/Week Comments Never 0 (1 standard drink = 0.6 oz pur e alcohol) Comments Unknown Sex and Gender Information Value Date Recorded Sex Assigned at Not on file Legal Sex Female 10:36 AM EDT Gender Identity Not on file Sexual Orientation Not on file documented as of this encounter Plan of Treatment Not on file documented as of this encounter Procedures Procedure Name Priority Date/Time Associated Diagnosis Comments XR CHEST 1 VIEW Routine 07/21/2023 9:25 AM EDT documented in this encounter Results * XR chest 1 view (07/21/2023 9:25 AM EDT) Anatomical Region Laterality Modality Chest Radiographic Shanna ging us Natalio Bah MD IMG XR PROCEDURES Final Resul t documented in this encounter Visit Diagnoses Not on filedocumented in this encounter Care Teams Market Risk Specialist Relationship Specialty Start Date End Date Shaikh Vasquez MD PCP - General Internal Medicine 11/15/22 11/01/23 Shaikh Vasquez MD [address] [place] [address] PCP - General Internal Medicine 11/02/23 12/11/23 Vu Jackson MD [address] [place] [address] PCP - General Family Medicine 12/12/23 Sirisha Pompa NP [address] [place] [address] Nurse Practitioner Family Medicine 12/12/23 documented as of this encounter
--- OUTSIDE RECORDS SUMMARY | 2024-10-21 08:46 | XMS_ITS ---
Author Organization [employer] [facility] tem Address [id number] [address] [place] [address] Care Team Providers Care Cork Insulation Setter Name Role Phone Adrianne Kelly MD Primary Care Provider Active Problems * This document contains information received from the source organization and may not represent a complete record from that organization. 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 Other Current Plans ADULT ONCOLOGY FLUSH ORDERS* Plan Start Date:12/08/2015 Plan Provider:Bobby Mojica MD Linked Problems Cellulitis of left hand Treatment Medications No medications scheduled. 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
--- OUTSIDE RECORDS SUMMARY | 2024-10-21 08:46 | XMS_ITS | Encounter Summary ---
Author Organization [employer] tem Address [id number] [address] [place] [address] Care Team Providers Care Seed Trucker Name Role Phone Adrianne Kelly MD Primary Care Provider Encounter Details Date Type Department Care Team (Late st Contact Info) Description 11/13/2023 Telephone [facility] [address] [facility] [address] [place] [id number] Alice Mabry LPN Social History Tobacco Use Types Packs/Day Years Used Date Smoking Tobacco: Every Day Cigarettes 1 44 Smokeless Tobacco: Never Alcohol Use Standard Drinks/Week Comments Not Currently 0 (1 standard drink = 0.6 oz pur e alcohol) [facility] Utilities Answer Date Recorded In the past 12 months has [employer], gas, oil, or water company threatened to [...] Progress Patient-Stated? Author home General Yes Faye lGass RN Note: Evaluation of progress towards goal: Patient plans to discharge home with self care and with assistance from family. documented as of this encounter Visit Diagnoses Not on filedocumented in this encounter Additional Health Concerns Assessment Noted Time PHQ-9 Depression Total Score: 0 10/19/19 24 1:09 PM EDT documented as of this encounter Care Teams Seed Trucker Relationship Specialty Start Date End Date Adrianne Kelly MD [address] [place] [address] PCP - General Family Medicine 10/19/23 documented as of this encounter
== END 2024-10-21 08:44 | disposition home or self-care (01) ==
LOC: NM 08:43
PROVIDERS: PCP Nurse Practitioner Family; Visit Provider Internal Medicine Interventional Cardiology
DX: R07.89 Other chest pain (principal); R06.09 Other forms of dyspnea
CPT/HCPCS: 78452; A9500

== ENCOUNTER 2024-11-08 08:38 | Outpatient (OUT) | payer OTHER, SELFPAY ==
--- OUTSIDE RECORDS SUMMARY | 2024-08-19 09:13 | XMS_ITS ---
Author Organization [facility] in [place] Address [address] [place] [address] Care Team Providers Care Cloth Stock Sorter Name Role Phone Selene Rodrigez Primary Care Provider REASON FOR VISIT refills Medications Medication SIG (Take, Route, Frequency, Duration) Notes Start Date End Date Status Omeprazole 40 MG 1 capsule 1/2 to 1 hour before morning meal Orally Once a day for 90 days Active Mounjaro 2.5 MG/0.5ML 2.5 mg Subcutaneou s weekly for 28 days call for next dose 04/30/2024 Active Trelegy Ellipta 100-62.5-25 MCG/ACT 1 puff Inhalation Once a day for 30 days 06/10/2024 Active Stiolto Respimat 2.5-2.5 MCG/ACT 2 puffs Inhalation Once a day for 30 days 06/11/2024 Active Vitamin D3 125 MCG (5000 UT) 1 tablet Orally Once a day Active Bumetanide 1 MG 1 tablet Orally Once a day for 30 days Active Donezepil HCl-10 mg Active hydrOXYzine HCl 25 MG 1 tablet as needed Orally Once a day Active lamoTRIgine 100 MG 1 tablet Orally Once a day Active Losartan Potassium 50 MG 1 tablet Orally Once a day Active CPAP Supplies -- Mask and Tubing 04/30/2024 Active busPIRone HCl 15 MG 1 tablet Orally Twic e a day for 30 days Active Carvedilol 25 MG 1 tablet with food Orally Twice a day for 90 days Active Vitamin B12 1000 MCG 1 tablet Orally Onc e a day for 30 days Active Allergy (Cetirizine) 10 MG 1 tablet Orally Once a day for 30 days 06/10/2024 Active Magnesium 400 MG 1 capsule Orally onc e daily for 30 days Active FeroSul 325 (65 Fe) MG 1 tablet Orally daily for 30 days Active DULoxetine HCl 60 MG 1 capsule Orally On ce a day for 30 days Active Encounters Encounter Location Date Provider Diagnosis [facility] [address] [place] [address] 08/19/2024 Selene Rodrigez Plan Of Treatment Medication Medication Name Sig Start Date Stop Date Notes Bumetanide 1 MG 1 tablet Orally Once a day for 30 days busPIRone HCl 15 MG 1 tablet Orally Twic e a day for 30 days Vitamin B12 1000 MCG 1 tablet Orally Onc e a day for 30 days Magnesium 400 MG 1 capsule Orally onc e daily for 30 days FeroSul 325 (65 Fe) MG 1 tablet Orally daily for 30 days DULoxetine HCl 60 MG 1 capsule Orally On ce a day for 30 days Progress Notes * Clarissa MONTANA LDOB:[birth year] (58 yo F)Acc No.[id number]:08/19/2024 Patient: Bright Clarissa DEL CASTILLO :1965 A ge:58 Y S ex:Female Address:[address] [place] [address], [place], [address] * Refills Refill DULoxetine HCl Capsule Delayed Release Particles, 60 MG, Orally, 30 Capsule, 1 capsule, Once a day, 30 days, Refills=5 Refill FeroSul Tablet, 325 (65 Fe) MG, Orally, 30 Tablet, 1 tablet, daily, 30 days, Refills=5 Refill Magnesium Capsule, 400 MG, Orally, 30, 1 capsule, once daily, 30 days, Refills=5 Refill busPIRone HCl Tablet, 15 MG, Orally, 60 Tablet, 1 tablet, Twice a day, 30 days, Refills=5 Refill Bumetanide Tablet, 1 MG, Orally, 30, 1 tablet, Once a day, 30 days, Refills=5 Refill Vitamin B12 Tablet Extended Release, 1000 MCG, Orally, 30, 1 tablet, Once a day, 30 days, Refills=5 Subjective: * Chief Complaints: * R efills * Medical History: * Surgical History: * Hospitalization/Major Diagno stic Procedure: * Medications: T akingAllergy (Cetirizine)(Cetirizine HCl) 10 MG Tablet 1 tablet Orally Once a day Bumetanide 1 MG Tablet 1 tablet Orally Once a day busPIRone HCl 15 MG Tablet 1 tablet Orally Twice a day Carvedilol 25 MG Tablet 1 tablet with food Orally Twice a day CPAP Supplies -- -- Mask and Tubing Donezepil HCl-10 mg DULoxetine HCl 60 MG Capsule Delayed Release Particles 1 capsule Orally Once a day FeroSul(Ferrous Sulfate) 325 (65 Fe) MG Tablet 1 tablet Orally daily hydrOXYzine HCl 25 MG Tablet 1 tablet as needed Orally Once a day lamoTRIgine 100 MG Tablet 1 tablet Orally Once a day Losartan Potassium 50 MG Tablet 1 tablet Orally Once a day Magnesium 400 MG Tablet as directed Orally Mounjaro(Tirzepatide) 2.5 MG/0.5ML Solution Auto-injector 2.5 mg Subcutaneous weekly , Notes to Pharmacist: call for next doseOmeprazole 40 MG Capsule Delayed Release 1 capsule 1/2 to 1 hour before morning meal Orally Once a day Stiolto Respimat(Tiotropium [place]-Olodaterol) 2.5-2.5 MCG/ACT Aerosol Solution 2 puffs Inhalation Once a day Trelegy Ellipta(Vrgmtuhzksy-Qxltpysik-Ptkcyl) 100-62.5-25 MCG/ACT Aerosol Powder Breath Activated 1 puff Inhalation Once a day Vitamin B12 1000 MCG Tablet Extended Release 1 tablet Orally Once a day Vitamin D3 125 MCG (5000 UT) Tablet 1 tablet Orally Once a day Taking Allergy (Cetirizine)(Cetirizine HCl) 10 MG Tablet 1 tablet Orally Once a day Taking Bumetanide 1 MG Tablet 1 tablet Orally Once a day Taking busPIRone HCl 15 MG Tablet 1 tablet Orally Twice a day Taking Carvedilol 25 MG Tablet 1 tablet with food Orally Twice a day Taking CPAP Supplies -- -- Mask and Tubing Taking Donezepil HCl-10 mg Taking DULoxetine HCl 60 MG Capsule Delayed Release Particles 1 capsule Orally Once a day Taking FeroSul(Ferrous Sulfate) 325 (65 Fe) MG Tablet 1 tablet Orally daily Taking hydrOXYzine HCl 25 MG Tablet 1 tablet as needed Orally Once a day Taking lamoTRIgine 100 MG Tablet 1 tablet Orally Once a day Taking Losartan Potassium 50 MG Tablet 1 tablet Orally Once a day Taking Magnesium 400 MG Tablet as directed Orally Taking Mounjaro(Tirzepatide) 2.5 MG/0.5ML Solution Auto-injector 2.5 mg Subcutaneous weekly , Notes to Pharmacist: call for next doseTaking Omeprazole 40 MG Capsule Delayed Release 1 capsule 1/2 to 1 hour before morning meal Orally Once a day Taking Stiolto Respimat(Tiotropium [place]- Olodaterol) 2.5-2.5 MCG/ACT Aerosol Solution 2 puffs Inhalation Once a day Taking Trelegy Ellipta(Oapcqrioibg-Axqqfjyha-Ogomny) 100-62.5-25 MCG/ACT Aerosol Powder Breath Activated 1 puff Inhalation Once a day Taking Vitamin B12 1000 MCG Tablet Extended Release 1 tablet Orally Once a day Taking Vitamin D3 125 MCG (5000 UT) Tablet 1 tablet Orally Once a day Objective: * Vitals: * Physical Examination: Assessment: Plan: * Treatment: * Procedure Codes: * true * Date: Generated for Dalila chowdary/Amelia/Heath on: 0 11/08/2024 08:41 AM EDT
--- OUTSIDE RECORDS SUMMARY | 2024-09-18 06:04 | XMS_ITS ---
Author Organization [facility] in [place] Address [address] [place] [address] Care Team Providers Care 1St Pressman Name Role Phone Selene Rodrigez Primary Care Provider REASON FOR VISIT Refill Medications Medication SIG (Take, Route, Fr equency, Duration) Notes Start Date End Date Status lamoTRIgine 100 MG 1 tablet Orally Once a day for 90 days Active Encounters Encounter Location Date Provider Diagnosis [address] [address] 09/18/2024 Selene Rodrigez Plan Of Treatment Medication Medication Name Sig Start Date Stop Date Notes lamoTRIgine 100 MG 1 tablet Orally Once a day for 90 days Progress Notes * NANCourtney SALESi LDOB:[birth year] (59 yo F)Acc No.[id number]:09/18/2024 Patient: Courtney OLIVERdevendra Bar :1965 A ge:59 Y S ex:Female Address:[address], [place], [address] * Refills Refill lamoTRIgine Tablet, 100 MG, Orally, 90 Tablet, 1 tablet, Once a day, 90 days, Refills=1 * true * Date: Generated for Dalila chowdary/Amelia/eTransmitting on: 0 11/08/2024 08:41 AM EDT
--- OUTSIDE RECORDS SUMMARY | 2024-11-07 10:30 | XMS_ITS | Encounter Summary ---
Author Organization [facility] Address [address] [place] [address] Care Team Providers Care Cigar Tobacco Processing Supervisor Name Role Phone Selene Rodrigez CNP Primary Care Provider [phone] Reason for Visit * Episode Based Medications (Routine) - Authorized Specialty Diagnoses / Procedures Referred By Contac t Referred To Contact Diagnoses Microscopic polyangiitis (CMS/HCC) Elizabeth Hi MD [address] [place] [address] Phone: tel: fax: [facility] [address] [place] [address] Phone: tel: fax: Referral ID Status Reason Start Date Expiration Date V isits Requested Visits Authorized [id number] Authorized 10/27/2023 05/06/2025 1 5 Encounter Details Date Type Department Care Team (Late st Contact Info) Description 11/07/2024 10:30 AM EDT Infusion [facility] [address] [place] [address] Microscopic polyangiitis (CMS/HCC) (Primary Dx) Social History Tobacco Use Types [...] Sign Reading Time Taken Comments Blood Pressure 119/79 11/07/2024 1:20 PM EDT Pulse 56 11/07/2024 12:17 PM EDT Temperature 36.3 C (97.3 F) 11/07/2024 10:58 AM EDT Respiratory Rate 20 11/07/2024 10:58 AM EDT Oxygen Saturation 97% 11/07/2024 10:58 AM EDT Inhaled Oxygen Concentration - - Weight 143 kg (314 lb 12.8 oz) 11/07/2024 10:58 AM EDT Height - - Body Mass Index 61.48 10/08/2024 11:12 AM EDT documented in this encounter Plan of Treatment Upcoming Encounters Date Type Department Care Team (Late st Contact Info) Description 11/21/2024 10:30 AM EDT Infusion [facility] Infusion [address] [place] [address] 12/18/2024 11:15 AM EDT Office Visit [facility] [address] [place] [address] Mehrdad Mccormick MD [address] [facility] [place] [address] 05/08/2025 10:00 AM EST Infusion [facility] [address] [place] [address] 05/22/2025 10:00 AM EST Infusion [facility] [address] [place] [address] documented as of this encounter Visit Diagnoses Diagnosis Microscopic polyangiitis (CMS/HCC)- Primary Polyarteritis nodosa documented in this encounter Administered Medications Inactive Administered Medications - up to 3 most recent administrations Medication Order MAR Action Action Date Dose Rate Site acetaminophen (Tylenol) tablet 650 mg 650 mg, oral, Once, On Violet 11/07/24 at 1115, For 1 doseIndications:Microscopic polyangiitis (CMS/HCC) Given 11/07/2024 11:21 AM EDT 650 mg diphenhydrAMINE (BENADryl) capsule 50 mg 50 mg, oral, Once, On Violet 11/07/24 at 1115, For 1 doseIndications:Microscopic polyangiitis (CMS/HCC) Given 11/07/2024 11:21 AM EDT 50 mg methylPREDNISolone sod suc(PF) (SOLU-Medrol) 125 mg/2 mL injection 100 mg 100 mg, intravenous, Once, On Violet 11/07/24 at 1115, For 1 dose, If powder-only vial dispensed, reconstitute with 2 mL Sterile Water for Injection for a concentration of 125mg/2mL.Indications:Micro scopic polyangiitis (CMS/HCC) Given 11/07/2024 11:27 AM EDT 100 mg riTUXimab-abbs (Truxima) 1,000 mg in sodium chloride 0.9 % 600 mL IVPB 1,000 mg, intravenous, Once, On Violet 11/07/24 at 1145, For 1 dose, Initial rate: Start at 100 mg/hour (67 mL per hour) Titrate by: 100 mg/hour (67 mL per hour) every 30 minutes Maximum rate: 400 mg/hour (267 mL per hour) Concentration: 1.5 mg/mL-(Max Rate = 400 mg/hr divided by concentration)Indications:M icroscopic polyangiitis (CMS/HCC) Rate/Dose Change 11/07/2024 1:20 PM EDT 264 mL/hr Rate/Dose Change 11/07/2024 12:49 PM EDT 198 mL /hr Rate/Dose Change 11/07/2024 12:17 PM EDT 132 mL /hr sodium chloride 0.9 % infusion 20 mL/hr, intravenous, Continuous, Starting on Violet 11/07/24 at 1115, Keep Vein Open run at 20 mL/hr during infusion visitIndications:Microscopic polyangiitis (CMS/HCC) New Bag 11/07/2024 11:23 AM EDT 20 mL/hr 20 mL/h r documented in this encounter Care Teams Cigar Tobacco Processing Supervisor Relationship Specialty Start Date End Date Selene Rodrigez CNP [address] [place] [address], [facility] [place] [address] PCP - General Family Medicine 05/20/24 documented as of this encounter
--- OUTSIDE RECORDS SUMMARY | 2024-11-08 08:41 | XMS_ITS | Encounter Summary ---
Author Organization [employer] tem Address [id number] [address] [place] [address] Care Team Providers Care Welding Machine Setter Name Role Phone Adrianne Kelly MD Primary Care Provider [phone] Encounter Details Date Type Department Care Team (Late st Contact Info) Description 11/13/2023 Orders Only [facility] [address] [place] [address] Shazia La, RN 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 (Primary Dx) Social History Tobacco Use Types Packs/Day Years Used Date Smoking Tobacco: Every Day Cigarettes 1 44 Smokeless Tobacco: Never Alcohol Use Standard Drinks/Week Comments Not Currently 0 (1 standard drink = 0.6 oz pur e alcohol) [facility] Utilities Answer Date Recorded In the past 12 months has [employer], gas, oil, or water [employer] threatened to shut off services in your [...] documented as of this encounter Care Teams Welding Machine Setter Relationship Specialty Start Date End Date Adrianne Kelly MD [address] [id number] PCP - General Family Medicine 10/19/23 documented as of this encounter
--- OUTSIDE RECORDS SUMMARY | 2024-11-08 08:41 | XMS_ITS | Encounter Summary ---
Author Organization [employer] tem Address [id number] [address] [place] [address] Care Team Providers Care Student Development Specialist Name Role Phone Adrianne Kelly MD Primary Care Provider [phone] Encounter Details Date Type Department Care Team (Late st Contact Info) Description 10/31/2023 Orders Only [facility] [address] [place] [address] Alice Mabry LPN Social History Tobacco Use Types Packs/Day Years Used Date Smoking Tobacco: Every Day Cigarettes 1 44 Smokeless Tobacco: Never Alcohol Use Standard Drinks/Week Comments Not Currently 0 (1 standard drink = 0.6 oz pur e alcohol) [facility] Utilities Answer Date Recorded In the past 12 months has [employer] electric, gas, oil, or water company threatened [...] documented as of this encounter Care Teams Student Development Specialist Relationship Specialty Start Date End Date Adrianne Kelly MD [address] [place] [address] PCP - General Family Medicine 10/19/23 documented as of this encounter
--- OUTSIDE RECORDS SUMMARY | 2024-11-08 08:41 | XMS_ITS | Encounter Summary ---
Author Organization [employer] tem Address [id number] [address] [place] [address] Care Team Providers Care Photoengraving Retoucher Name Role Phone Adrianne Kelly MD Primary Care Provider [phone] Encounter Details Date Type Department Care Team (Late st Contact Info) Description 10/31/2023 Orders Only [facility] [address] [place] [address] Shazia La, RN 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 (Primary Dx) Social History Tobacco Use Types Packs/Day Years Used Date Smoking Tobacco: Every Day Cigarettes 1 44 Smokeless Tobacco: Never Alcohol Use Standard Drinks/Week Comments Not Currently 0 (1 standard drink = 0.6 oz pur e alcohol) [facility] Utilities Answer Date Recorded In the past 12 months has [employer], gas, oil, or water [employer] threatened to shut off services in your [...] documented as of this encounter Care Teams Photoengraving Retoucher Relationship Specialty Start Date End Date Adrianne Kelly MD [address] [id number] PCP - General Family Medicine 10/19/23 documented as of this encounter
--- OUTSIDE RECORDS SUMMARY | 2024-11-08 08:41 | XMS_ITS | Encounter Summary ---
Author Organization [employer] tem Address [facility] [id number] [address] [place] [address] Care Team Providers Care Wealth Management Advisor Name Role Phone Adrianne Kelly MD Primary Care Provider [phone] Encounter Details Date Type Department Care Team (Late st Contact Info) Description 10/31/2023 Telephone [facility] [address] [facility] [address] [place] [address] Alice Mabry LPN Social History Tobacco Use Types Packs/Day Years Used Date Smoking Tobacco: Every Day Cigarettes 1 44 Smokeless Tobacco: Never Alcohol Use Standard Drinks/Week Comments Not Currently 0 (1 standard drink = 0.6 oz pur e alcohol) [facility] Utilities Answer Date Recorded In the past 12 months has [employer], gas, oil, or water company threatened to [...] documented as of this encounter Care Teams Wealth Management Advisor Relationship Specialty Start Date End Date Adrianne Kelly MD [address] [place] [address] PCP - General Family Medicine 10/19/23 documented as of this encounter
--- OUTSIDE RECORDS SUMMARY | 2024-11-08 08:41 | XMS_ITS | Encounter Summary ---
Author Organization [employer] tem Address [id number] [address] [place] [address] Care Team Providers Care Community Health Navigator Name Role Phone Adrianne Kelly MD Primary Care Provider [phone] Encounter Details Date Type Department Care Team (Late st Contact Info) Description 11/13/2023 Orders Only [facility] [address] [place] [address] Alice Mabry LPN Social History Tobacco Use Types Packs/Day Years Used Date Smoking Tobacco: Every Day Cigarettes 1 44 Smokeless Tobacco: Never Alcohol Use Standard Drinks/Week Comments Not Currently 0 (1 standard drink = 0.6 oz pur e alcohol) [facility] Utilities Answer Date Recorded In the past 12 months has [employer] electric, gas, oil, or water company threatened [...] documented as of this encounter Care Teams Community Health Navigator Relationship Specialty Start Date End Date Adrianne Kelly MD [address] [place] [address] PCP - General Family Medicine 10/19/23 documented as of this encounter
--- OUTSIDE RECORDS SUMMARY | 2024-11-08 08:41 | XMS_ITS | Encounter Summary ---
Author Organization [employer] tem Address [id number] [address] [place] [address] Care Team Providers Care Earth Science Teacher Name Role Phone Adrianne Kelly MD Primary Care Provider [phone] Encounter Details Date Type Department Care Team (Late st Contact Info) Description 10/25/2023 Orders Only [facility] [address] [place] [address] Alice Mabry LPN Social History Tobacco Use Types Packs/Day Years Used Date Smoking Tobacco: Every Day Cigarettes 1 44 Smokeless Tobacco: Never Alcohol Use Standard Drinks/Week Comments Not Currently 0 (1 standard drink = 0.6 oz pur e alcohol) [facility] Utilities Answer Date Recorded In the past 12 months has [employer] electric, gas, oil, or water company threatened [...] documented as of this encounter Care Teams Earth Science Teacher Relationship Specialty Start Date End Date Adrianne Kelly MD [address] [place] [address] PCP - General Family Medicine 10/19/23 documented as of this encounter
--- OUTSIDE RECORDS SUMMARY | 2024-11-08 08:41 | XMS_ITS | Encounter Summary ---
Author Organization [facility] Address [address] [place] [address] Care Team Providers Care Electronic Die Maker Name Role Phone Shaikh IDRIS Vasquez Primary Care Provider [phone] Shaikh IDRIS Vasquez Primary Care Provider [phone] Vu Jackson MD Primary Care Provider [phone] Sirisha Pompa LEATHER STAKER Unavailable [phone] Unallocated, Noms Provider Primary Care Provi carlos Encounter Details Date Type Department Care Team (Late st Contact Info) Description 07/21/2023 Orders Only [facility] [address] [place] [phone] Natalio Bah MD [address] [place], [place] [address] Social History Tobacco Use Types Packs/Day Years [...] on filedocumented in this encounter Care Teams Electronic Die Maker Relationship Specialty Start Date End Date Shaikh Vasquez MD PCP - General Internal Medicine 11/15/22 11/01/23 Shaikh Vasquez MD [address] [place] [address] PCP - General Internal Medicine 11/02/23 12/11/23 Vu Jackson MD [address] [place] [address] PCP - General Family Medicine 12/12/23 10/29/24 Unallocated, [facility] [address] [place] [address] PCP - General Family Medicine 10/30/24 Sirisha Pompa NP [address] [place] [address] Nurse Practitioner Family Medicine 12/12/23 10/29/24 documented as of this encounter
--- OUTSIDE RECORDS SUMMARY | 2024-11-08 08:41 | XMS_ITS | Encounter Summary ---
Author Organization [facility] Address [id number] [address] [place] [address] Care Team Providers Care Certified Neurodiagnostic Technologist Name Role Phone Adrianne Kelly MD Primary Care Provider [phone] Encounter Details Date Type Department Care Team (Late st Contact Info) Description 07/10/2019 Documentation [facility] [address] [place] [address] Chandrika Ca, AGILITY INSTRUCTOR-ZONING ENGINEER [address] [facility] [address] [facility], [address] [place] [id number] Social History Tobacco Use Types Packs/Day Years [...] documented as of this encounter Care Teams Certified Neurodiagnostic Technologist Relationship Specialty Start Date End Date Adrianne Kelly MD [address] [place] [address] PCP - General Family Medicine 10/19/23 documented as of this encounter
--- OUTSIDE RECORDS SUMMARY | 2024-11-08 08:41 | XMS_ITS | Patient Health Record ---
Author Organization [facility] Address [address] [place] [address] Care Team Providers Care Spares Scheduler Name Role Phone Olman Morelos Unavailable [phone] Allergies Allergen (clinical drug ingredient) Drug/Non Drug Allergy documented on EMR Reaction Allergy Type Onset Date Status pregabalin Lyrica see things Drug Allergy Activ e sulfamethoxazole / trimethoprim Bactrim hives Drug Allergy Active codeine codeine sick Drug Allergy Active Reason For Referral No Information Medications Medication SIG (Take, Route, Fr equency, Duration) Notes Start Date End Date Status Symbicort Active DULoxetine Active lisinopril Active hydrOXYzine Active albuterol Active Calcium Active spiriva respimat Act marva busPIRone Active lamoTRIgine Active Vitamin D Active fluticasone Active Certizine Active donepezil Active omeprazole Active rosuvastatin Active Problems Problem Type SNOMED Code ICD Code Onset Dates Problem Status W/U Status Risk Notes Problem [id number] Tear of articular cartilage of right knee, current, initial encounter (S83.31XA) Active confirmed Problem [id number] Right knee pain, unspecified chronicity (M25.561) Active confirmed Plan Of Treatment No Information Insurance Providers Payer Name Payer Address Payer Phone Subscriber Number Group Number Insured Name Patient Relationship to Insured Coverage Start Date Coverage End Date [facility] [address] [place] [id number] DANIELLE [place] Self - patient is the insured Medical (General) History Medical History History ICD Code Respiratory problems: Yes Lung Disease: Yes High Blood Pressure: Yes Depression: Yes Anxiety: Yes Sleep apnea: Yes CPAP Machine: Yes Do you use the CPAP machine? Yes Drug Allergies: Yes Surgical History Surgery Date(Month/Year)
--- OUTSIDE RECORDS SUMMARY | 2024-11-08 08:41 | XMS_ITS ---
Author Organization [facility] Address [address] [place] [address] Care Team Providers Care Contracts Manager Name Role Phone Selene Rodrigez CNP Primary Care Provider [phone] Active Problems Problem Noted Date Diagnosed Date [...] sleep study in 2019. Will refer to [facility] Sleep Study. COPD with acute exacerbation 12/25/2020 [...]
--- OUTSIDE RECORDS SUMMARY | 2024-11-08 08:41 | XMS_ITS | Encounter Summary ---
Author Organization [facility] Address [id number] [address] [place] [address] Care Team Providers Care Automatic Toe Laster Name Role Phone Adrianne Kelly MD Primary Care Provider Encounter Details Date Type Department Care Team (Late st Contact Info) Description 11/13/2023 Telephone PHN [facility] [address] [facility] [address] [place] [id number] Alice Mabry LPN Social History Tobacco Use Types Packs/Day Years Used Date Smoking Tobacco: Every Day Cigarettes 1 44 Smokeless Tobacco: Never Alcohol Use Standard Drinks/Week Comments Not Currently 0 (1 standard drink = 0.6 oz pur e alcohol) [facility] Utilities Answer Date Recorded In the past 12 months has [employer], gas, oil, or water company threatened to [...] documented as of this encounter Care Teams Automatic Toe Laster Relationship Specialty Start Date End Date Adrianne Kelly MD [address] [place] [address] PCP - General Family Medicine 10/19/23 documented as of this encounter
--- OUTSIDE RECORDS SUMMARY | 2024-11-08 08:41 | XMS_ITS | Encounter Summary ---
Author Organization [employer] [facility] Address [facility][id number] [address] [place] [address] Care Team Providers Care International Operations Manager Name Role Phone Adrianne Kelly MD Primary Care Provider [phone] Encounter Details Date Type Department Care Team (Late st Contact Info) Description 10/25/2023 Telephone PHN [facility] [address] [facility] [address] [place] [id number] Alice Mabry LPN Social History Tobacco Use Types Packs/Day Years Used Date Smoking Tobacco: Every Day Cigarettes 1 44 Smokeless Tobacco: Never Alcohol Use Standard Drinks/Week Comments Not Currently 0 (1 standard drink = 0.6 oz pur e alcohol) [facility] Utilities Answer Date Recorded In the past 12 months has [employer], gas, oil, or water company threatened to [...] documented as of this encounter Care Teams International Operations Manager Relationship Specialty Start Date End Date Adrianne Kelly MD [address] [place] [address] PCP - General Family Medicine 10/19/23 documented as of this encounter
--- OUTSIDE RECORDS SUMMARY | 2024-11-08 08:42 | XMS_ITS | Encounter Summary ---
Author Organization [facility] Address [address] [place] [address] Care Team Providers Care First Officer Name Role Phone Vu Jackson MD Primary Care Provider [phone] Sirisha Pompa LACQUER SIZER Unavailable [phone] Unallocated, Michael Provider Primary Care Provi carlos Encounter Details Date Type Department Care Team (Late st Contact Info) Description 01/22/2024 Orders Only [facility] [address] [place] [address] Shaikh Vasquez MD [address] [place] [phone] Social History Tobacco Use Types Packs/Day Years [...] on filedocumented in this encounter Care Teams First Officer Relationship Specialty Start Date End Date Vu Jackson MD [address] [place] [address] PCP - General Family Medicine 12/12/23 10/29/24 Unallocated, Noms MD Alvaro [address] [place] [address] PCP - General Family Medicine 10/30/24 Sirisha Pompa NP [address] [place] [address] Nurse Practitioner Family Medicine 12/12/23 10/29/24 documented as of this encounter
--- OUTSIDE RECORDS SUMMARY | 2024-11-08 08:42 | XMS_ITS | Clinical Summary ---
Author Organization [facility] Address [address] [place] [address] Care Team Providers Care Master Control Operator Name Role Phone Unallocated, Noms Provider Primary Care Provi carlos Allergies Active Allergy Reactions Criticality Noted Date [...] sleep study in 2019. Will refer to [facility] Sleep Study. ARSH (generalized anxiety disorder) 04/13/2017 [...] understanding. Pt was following with Pulmonology in [place] 2 years ago, needs established with new [employer]. Has hx of ADORE- does not wear [...] Never 02/05/2024 How often do you attend restoration or rastafarian serv ices? Never 02/05/2024 Do you belong to any clubs o r organizations such as restoration groups, unions, fraternal or athletic groups, or [...] any time in the past 12 m [facility], were you homeless or living in a custodial (including now)? No 02/05/2024 Comments Unknown Sex [...] Screening 1994 HPV/Cotest 1994 Mammogram 02/26/2020 02/25/2019, 12/02/2016, 07/24 FOBT 10/16/2024 10/17/2023 Influenza Vaccine (#1) 2024 Colonoscopy 10/13/2029 10/14/2019 Colorectal Cancer Screening 10/13/2029 Insurance [employer] MEDICAID Care Teams Master Control Operator Relationship Specialty Start Date End Date Unallocated, Noms Alvaro, [address] [place], [place] [id number] PCP - General Family Medicine 10/30/24
--- OUTSIDE RECORDS SUMMARY | 2024-11-08 08:42 | XMS_ITS | Encounter Summary ---
Author Organization [facility] Address [id number] [address] [place] [address] Care Team Providers Care Tool And Fixture Repairer Name Role Phone Adrianne Kelly MD Primary Care Provider [phone] Encounter Details Date Type Department Care Team (Late st Contact Info) Description 10/01/2020 Orders Only [facility] [address] [place] [address] External, Scanning Provider Social History [...] Edited Result - Final Performing Organization Address City/[facility]/ZIP Co de Phone Number MANUALLY TRANSCRIBED RESULTS * Multiple labs (08/26/2020) us Scanning Provider External [place] [facility] Final Result Performing Organization Address City/[facility]/ZIP Co de Phone Number MANUALLY TRANSCRIBED RESULTS documented in this encounter Visit Diagnoses Not on filedocumented in this encounter Care Teams Tool And Fixture Repairer Relationship Specialty Start Date End Date Adrianne Kelly MD [address] [place] [address] PCP - General Family Medicine 10/19/23 documented as of this encounter
--- OUTSIDE RECORDS SUMMARY | 2024-11-08 08:42 | XMS_ITS | Clinical Summary ---
Author Organization [facility] Address [address] [place] [address] Care Team Providers Care Professor Of Biochemistry Name Role Phone Selene Rodrgiez CNP Primary Care Provider [phone] Allergies Active Allergy Reactions Criticality Noted Date [...] sleep study in 2019. Will refer to [facility] Sleep Study. COPD with acute exacerbation [...] Encounters Date Type Department Care Team Description 11/07/2024 10:30 AM EDT Infusion [facility] [address] [place] [address] Microscopic polyangiitis (CMS/HCC) (Primary Dx) 10/08/2024 11:15 AM EDT Office Visit [facility] [address] [place] [phone] Mehrdad Mccormick MD Palpitations (Primary Dx); Other chest pain; ALMAZAN (dyspnea on exertion); Angina pectoris, unstable (CMS/HCC) 08/28/2024 Refill [facility] [address] [place] [address] Nery Beltran MA Essential hypertension from [...] 12.8 oz) 11/07/2024 10:58 AM EDT Height 152.4 cm (5') 10/08/2024 11:12 AM EDT Body Mass Index 61.48 10/08/2024 11:12 AM EDT Plan of Treatment Upcoming Encounters Date Type Department Care Team (Late st Contact Info) Description 11/21/2024 10:30 AM EDT Infusion [facility] [address] [place] [phone] 12/18/2024 11:15 AM EDT Office Visit [facility] [address] [place] [address] Mehrdad Mccormick MD [address] [facility] [place] [address] 05/08/2025 10:00 AM EST Infusion [facility] [address] [place] [phone] 05/22/2025 10:00 AM EST [facility] Infusion [address] [place] [phone] Health Maintenance Due Date Last Done Comments [...] 01/30/2021 01/02/2021 Mammogram 02/25/2021 02/25/2019 Influenza Vaccine (#1) 2024 HIB Vaccines Aged Out No longer [...] patient's age to complete this topic Insurance [facility] MEDICAID Care Teams Professor Of Biochemistry Relationship Specialty Start Date End Date Selene Rodrigez CNP [address] [place] [address], [facility] [place] [address] PCP - General Family Medicine 05/20/24
--- OUTSIDE RECORDS SUMMARY | 2024-11-08 08:42 | XMS_ITS | Encounter Summary ---
Author Organization [facility] Address [address] [place] [address] Care Team Providers Care Tin Tie Machine Operator Automatic Name Role Phone Vu Jackson MD Primary Care Provider [phone] Sirisha Pompa [employer]EN [employer] OFFBEARER Unavailable [phone] Unallocated, Michael Provider Primary Care Provi carlos Encounter Details Date Type Department Care Team (Late st Contact Info) Description 04/09/2024 Orders Only [facility] [address] [place] [phone] Sheri Marcum MD [address] [place] [address] Social History Tobacco Use Types Packs/Day Years [...] Never 02/05/2024 How often do you attend roman catholic or denominational serv ices? Never 02/05/2024 Do you belong to any clubs o r organizations such as roman catholic groups, unions, fraternal or athletic groups, [...] any time in the past 12 m [facility], were you homeless or living in a senior care (including now)? No 02/05/2024 Comments Unknown Sex [...] Anatomical Region Laterality Modality Radiographic Shanna ging Sheri Marcum MD IMG XR PROCEDURES Final Result documented in this encounter Visit Diagnoses Not on filedocumented in this encounter Care Teams Tin Tie Machine Operator Automatic Relationship Specialty Start Date End Date Vu Jackson MD [address] [place] [address] PCP - General Family Medicine 12/12/23 10/29/24 Unallocated, Noms Provider, [address] [place] [address] PCP - General Family Medicine 10/30/24 Sirisha Pompa NP [address] [place] [address] Nurse Practitioner Family Medicine 12/12/23 10/29/24 documented as of this encounter
--- OUTSIDE RECORDS SUMMARY | 2024-11-08 08:42 | XMS_ITS | Clinical Summary ---
Author Organization [facility] tem Address [id number] [address] [place] [address] Care Team Providers Care Concrete Pump Operator Name Role Phone Adrianne Kelly MD Primary Care Provider [phone] Allergies Active Allergy Reactions Criticality Noted Date [...] ns:Chronic obstructive pulmonary disease, unspecified COPD type ([facility]) Inhale 3 mL by nebulization every 4 [...] drink = 0.6 oz pur e alcohol) [employer] Utilities Answer Date Recorded In the past 12 months has [employer] gas, oil, or water [employer] threatened to shut off services in your [...] Recently Relevant to Health Maintenance Insurance MEDICAID [facility] MEDICAID Member Subscriber Plan / Payer (Ef fective 2022-Present) Name:Clarissa Monae Relation to Subscriber:Self Name:Clarissa Monae Payer ID:[id number] (NAIC) Group ID:[id number] Type:Not on file Address: [address] [facility] MEDICAID Advance Directives Documents on File Type Date Recorded Patient Specialist Managers Expl anation Durable Power of Retention Specialist 01/12/2021 1:47 PM Living Will 01/12/2021 1:47 PM DNR Physician Order 01/12/2021 1:47 PM * DNR Comfort Care Arrest (DNR-CCA) [place] (Latest Code Status on File) Date Activated Date Inactivated Comments 10/19/2023 12:20 AM 10/25/2023 7:16 PM * DNR Comfort Care Arrest (DNR-CCA) [place] Date Activated Date Inactivated Comments 10/15/2023 8:24 AM 10/18/2023 11:19 PM * DNR Comfort Care Arrest (DNR-CCA) [place] Date Activated Date Inactivated Comments 12/30/2020 12:36 PM 01/02/2021 4:30 PM * Full Code Date Activated Date Inactivated Comments 12/25/2020 3:50 PM 12/30/2020 12:36 PM * Full Code Date Activated Date Inactivated Comments 10/08/2020 1:02 PM 10/08/2020 6:57 PM Care Teams Concrete Pump Operator Relationship Specialty Start Date End Date Adrianne Kelly MD [address] [place] [id number] PCP - General Family Medicine 10/19/23
--- OUTSIDE RECORDS SUMMARY | 2024-11-08 08:42 | XMS_ITS | Patient Health Record ---
Author Organization [facility] in [place] Address [address] [place] [address] Care Team Providers Care Clean Rice Grader And Reel Tender Name Role Phone Selene Rodrigez Primary Care Provider Allergies Allergen (clinical drug ingredient) Drug/Non Drug Allergy documented on EMR Reaction Allergy Type Onset Date Status sulfamethoxazole / trimethoprim Bactrim hives Drug Allergy Active pregabalin Lyrica dizziness Drug Allergy Active Results Component Value Reference Range Notes CBC AUTO DIFF Reviewed date:05/21/2024 11:03:45 AM Interpretation: Performing Lab: Notes/Report: [facility] , White Blood Count 7.9 4.0-11.0 10 3/uL Red Blood Count 5.01 4.20-5.40 10 6/uL Hemoglobin 13.4 12.0-16.0 g/dL Hematocrit 43.0 36.0-48.0 % Mean Corpuscular Volume 85.8 81.0-99.0 fL Mean Corpuscular Hemoglobin 26.7 26.7-34.0 pg Mean Corpuscular HGB Conc 31.2 29.9-35.2 g/dL Red Cell Distribution Width 13.7 11.0-15.0 % Platelet Count 290 150-450 10 3/uL Mean Platelet Volume 10.7 9.5-13.5 fL Neutrophils Percent Auto 64.5 43.0-75.0 % Lymphocytes Percent Auto 24.2 20.5-60.0 % Monocytes Percent Auto 8.9 1.7-12.0 % Eosinophils Percent Auto 1.6 0.9-7.0 % Basophils Percent Auto 0.5 0.2-2.0 % Immature Granulocytes Pct Auto 0.3 0.0-0.5 % Neutrophils Absolute Auto 5.1 1.4-6.5 10 3/uL Lymphocytes Absolute Auto 1.9 1.2-3.8 10 3/uL Monocytes Absolute Auto 0.7 0.3-0.8 10 3/uL Eosinophils Absolute Auto 0.1 0.0-0.7 10 3/uL Basophils Absolute Auto 0.0 0.0-0.1 10 3/uL Immature Granulocytes Abs Auto 0.02 0.00-0.03 10 3/uL Performing Lab: see note ML - [facility] LB IRON Reviewed date:05/21/2024 11:03:45 AM Interpretation: Performing Lab: Notes/Report: [facility] , Iron 63.0 50.0-170.0 ug/dL Performing Lab: see note - [facility] Vitamin B12 Reviewed date:05/21/2024 11:03:45 AM Interpretation: Performing Lab: Notes/Report: [facility] , Vitamin B12 6004 224-2646 pg/mL Block Mason: Serafin Vo PhD, Phone: [phone] Performed at: - [facility] [address] [id number] Performing Lab: see note - [facility] LB TSH Reviewed date:05/21/2024 11:03:45 AM Interpretation: Performing Lab: Notes/Report: [facility] , Thyroid Stimulating Hormone 2.152 0.358-3.740 u IU/mL Performing Lab: see note - [facility] LB T4 Reviewed date:05/21/2024 11:03:45 AM Interpretation: Performing Lab: Notes/Report: [facility] , T4 Thyroxine 8.70 4.80-13.90 ug/dL Performing Lab: see note - [facility] LB PROF 14(COMP METB) Reviewed date:05/21/2024 11:03:45 AM Interpretation: Performing Lab: Notes/Report: [facility] , Sodium 141 136-145 mmol/L Potassium 4.4 3.5-5.1 mmol/L Chloride 102 98-107 mmol/L Carbon Dioxide 32.8 21.0-32.0 mmol/L Anion Gap 10.6 Glucose 110 74-106 mg/dL Blood Urea Nitrogen 17.0 7.0-18.0 mg/dL Creatinine 1.37 0.55-1.02 mg/dL Estimated GFR ( Martine 48 >=60 mL/min/1.73m 2 Estimated GFR (Non- Esmer 39 >=60 mL/min/1.73m 2 BUN Creatinine Ratio 12.4 Calcium 10.0 8.5-10.1 mg/dL Bilirubin Total 0.5 0.2-1.0 mg/dL Aspartate Amino Transferase 16 15-37 U/L Alanine Aminotransferase 15 14-59 U/L Alkaline Phosphatase 62 46-116 U/L Total Protein 6.7 6.4-8.2 g/dL Albumin Level 3.4 3.4-5.0 g/dL Globulin 3.3 Albumin Globulin Ratio 1.0 Performing Lab: see note ML - [facility] LIPID PROFILE Reviewed date:05/21/2024 11:03:45 AM Interpretation: Performing Lab: Notes/Report: [facility] , Triglycerides 114 <=150 mg/dL Cholesterol 191 <=200 mg/dL HDL Cholesterol 98 40-60 mg/dL > or =60 mg/dl - LOW CARDIOVASCULAR RISK <40 mg/dl - HIGH CARDIOVASCULAR RISK LDL Cholesterol Calculated 71.0 100-129 mg/dl NEAR OR ABOVE OPTIMAL 130-159 mg/dl BORDERLINE HIGH 160-189 mg/dl HIGH >190 mg/dl VERY HIGH <100 mg/dl OPTIMAL VLDL CHOLESTEROL 22.8 Chol HDL Ratio 1.9 7.1 - 11.0 MODERATE RISK >11.0 HIGH RISK 4.4 - 7.1 AVERAGE RISK 3.3 - 4.4 LOW RISK Performing Lab: see note ML - [facility] GLYCOHEMOGLOBIN A1C Reviewed date:05/21/2024 11:03:45 AM Interpretation: Performing Lab: Notes/Report: [facility] , Glycohemoglobin A1C 5.1 4.5-6.2 % > 7.0 ADA RECOMMENDED LIMIT 4.0 - 6.0 ACTION SUGGESTED ADA THERAPEUTIC TARGET < 7.0 Estimated Average Glucose 100 Performing Lab: see note ML - [facility] FREE T3 Reviewed date:05/21/2024 11:03:45 AM Interpretation: Performing Lab: Notes/Report: [facility] , Free T3 2.88 2.18-3.98 pg/mL Performing Lab: see note ML - [facility] LB VITAMIN D 25 [place] Reviewed date:05/21/2024 11:03:45 AM Interpretation: Performing Lab: Notes/Report: [facility] , Vitamin D 28.5 20-<30 ng/mL Vit D insufficient >100 ng/mL Potential Toxicity <20 ng/mL Vit D deficient 30-100 ng/mL Vit D sufficient Performing Lab: see note ML - [facility] LB INSULIN Reviewed date:05/21/2024 11:03:45 AM Interpretation: Performing Lab: Notes/Report: [facility] , Insulin 22.1 2.6-24.9 uIU/mL Performed at: - [facility] [address] [id number] Block Mason: Serafin Vo PhD, Phone: [phone] Performing Lab: see note - [facility] LB Reason For Referral Reason titration study Diagnosis 1 ADORE (obstructive sle ep apnea) (G47.33) Referral Organization [facility] Referring Provider First Name Selene Referring Provider Last Name Rain Referring Provider Speciality [facility] Referred Provider [facility] Referred Provider Specialty Sleep Medici ne Referral Priority Routine Medications Medication SIG (Take, Route, Frequency, Duration) Notes Start Date End Date Status Bumetanide 1 MG 1 tablet Orally Once a day for 30 days Active busPIRone HCl 15 MG 1 tablet Orally Twic e a day for 30 days Active lamoTRIgine 100 MG 1 tablet Orally Once a day for 90 days Active Vitamin B12 1000 MCG 1 tablet Orally Onc e a day for 30 days Active Magnesium Oxide 400 MG 1 tablet with food Orally Once a day for 30 days Active FeroSul 325 (65 Fe) MG 1 tablet Orally daily for 30 days Active DULoxetine HCl 60 MG 1 capsule Orally On ce a day for 30 days Active Omeprazole 40 MG 1 capsule 1/2 to 1 hour before morning meal Orally Once a day for 90 days Active Donezepil HCl-10 mg 10 mg one tablet orally q day for 30 days Active Mounjaro 2.5 MG/0.5ML 2.5 mg Subcutaneou s weekly for 28 days call for next dose 04/30/2024 Active hydrOXYzine HCl 25 MG 1 tablet as needed Orally BID for 90 days Active CPAP Supplies -- Mask and Tubing 04/30/2024 Active Trelegy Ellipta 100-62.5-25 MCG/ACT 1 puff Inhalation Once a day for 30 days 06/10/2024 Active Carvedilol 25 MG 1 tablet with food Orally Twice a day for 90 days Active Stiolto Respimat 2.5-2.5 MCG/ACT 2 puffs Inhalation Once a day for 30 days 06/11/2024 Active Vitamin D3 125 MCG (5000 UT) 1 tablet Orally Once a day Active Allergy (Cetirizine) 10 MG 1 tablet Orally Once a day for 30 days 06/10/2024 Active Losartan Potassium 50 MG 1 tablet Orally Once a day Active Social History Tobacco Use: Social History Observation Description Date Details (start date - stop date) Current Smoker 05/24/1976 - NA Tobacco Control (Standard) Question Answer Notes Tobacco use: Current smoker When did you start smoking? 05/24/1976 How often do you smoke cigarettes? Every day How many cigarettes a day do you smoke? 11-20 AUDIT-C (Standard) Question Answer Notes Did you have a drink containing alcohol in the p ast year? No Points 0 Interpretation Negative Problems Problem Type SNOMED Code ICD Code Onset Dates Problem Status W/U Status Risk Notes Problem COPD - Chronic obstructive pulmonary disease (04751871) COPD (chronic obstructive pulmonary disease) (J44.9) Active confirmed Problem Chronic kidney disease (818278197) CKD (chronic kidney disease) (N18.9) Active confirmed Problem Obstructive sleep apnea syndrome (15485600) ADORE (obstructive sleep apnea) (G47.33) Active confirmed Problem Iron deficiency anemia (81650604) Iron deficiency anemia (D50.9) Active confirmed Problem Acute congestive heart failure (41520425) Acute CHF (I50.9) Active confirmed Problem Primary hypertension (14250421) Primary hypertension (I10) Active confirmed Problem Morbid obesity (585990926) Class 3 obesity (E66.01) Active confirmed Vital Signs Blood pressure diastolic 80 mm Hg 04/30/2024 Height 60 in 04/30/2024 Blood pressure systolic 130 mm Hg 04/30/2024 Weight 317 lbs 04/30/2024 BMI 61.9 kg/m2 04/30/2024 Encounters Encounter Location Date Provider Diagnosis [facility] [address] [place] [address] 04/30/2024 Selene Rodrigez ADORE (obstructive sle ep apnea) G47.33 ; Fatigue R53.83 ; Class 3 obesity E66.01 and Primary hypertension I10 [facility] [address] [facility] [place] [address] 05/01/2024 Selene Rodrigez [facility] [address] [place] [facility] [place] [address] 05/07/2024 Selene Rodrigez [facility] [address] [place] [facility] [place] [address] 05/21/2024 Selene Rodrigez [facility] [address] [place] [facility] [place] [address] 06/10/2024 Selene Rodrigez [facility] [address] [place] [facility] [place] [address] 06/11/2024 Selene Rodrigez [facility] [address] [place] [facility] [place] [address] 08/19/2024 Selene Rodrigez [facility] [address] [facility] [address] [facility] [address] 09/11/2024 Selene Rodrigez [facility] [address] [facility] [address] [facility] [address] 09/18/2024 Selene Rodrigez Assessments Encounter Date Diagnosis (ICD Code) Assessment Notes Treatment Notes Treatment Clinical Notes Section Notes 04/30/2024 ADORE (obstructive sleep apnea) (ICD-10 - G47.33) needs new mask needs titration study 04/30/2024 Fatigue (ICD-10 - R53.83) 04/30/2024 Class 3 obesity (ICD-10 - E66.01) 04/30/2024 Primary hypertension (ICD-10 - I10) BP ok today continue monitor fu cardiology 04/30/[address] apt Plan Of Treatment Pending Test Test Name Order Date CMP (COMPLETE METABOLIC PANEL) 5 HEMOGLOBIN A1C (GLYCO) 04/30/2024 INSULIN, TOTAL 04/30/2024 LIPID PANEL (CHOL/TRIG/HDL/LDL) 04/30/19 25 CBC WITH DIFF 04/30/2024 IRON 04/30/2024 VITAMIN B12 04/30/2024 THYROID PANEL (T4/TSH/FREE T3) 5 Vitamin D 04/30/2024 Insurance Providers Payer Name Payer Address Payer Phone Subscriber Number Group Number Insured Name Patient Relationship to Insured Coverage Start Date Coverage End Date [employer] [place] [employer] [address] [place] [address] [id number] Clarissa Monae Self - patient is the insured Medical (General) History Medical History History ICD Code dementia fibromyalgia bipolar depression Surgical History Surgery Date(Month/Year) hysterectomy
--- OUTSIDE RECORDS SUMMARY | 2024-11-08 08:42 | XMS_ITS | Encounter Summary ---
Author Organization [facility] [address] [facility] [place] [address] Care Team Providers Care Magento Developer Name Role Phone Vu Jackson MD Primary Care Provider [phone] Sirisha Pompa OTOLARYNGOLOGY SURGEON Unavailable [phone] Unallocated, Michael Provider Primary Care Provi carlos Encounter Details Date Type Department Care Team (Late st Contact Info) Description 04/08/2024 Orders Only [facility] [address] [place] [id number] Natalio Bah MD [address] [place], [place] [id number] Social History Tobacco Use Types Packs/Day Years [...] Never 02/05/2024 How often do you attend presybeterian or gnosticist serv ices? Never 02/05/2024 Do you belong to any clubs o r organizations such as presybeterian groups, unions, fraternal or athletic groups, or [...] any time in the past 12 m [facility], were you homeless or living in a jail (including now)? No 02/05/2024 Comments Unknown Sex [...] on filedocumented in this encounter Care Teams Magento Developer Relationship Specialty Start Date End Date Vu Jackson MD [address] [place] [address] PCP - General Family Medicine 12/12/23 10/29/24 Unallocated, Noms Provider, [address] [place] [address] PCP - General Family Medicine 10/30/24 Sirisha Pompa NP [address] [place] [address] Nurse Practitioner Family Medicine 12/12/23 10/29/24 documented as of this encounter
--- OUTSIDE RECORDS SUMMARY | 2024-11-08 08:42 | XMS_ITS ---
Author Organization [facility] tem Address [id number] [address] [place] [address] Care Team Providers Care Back Seam Stitcher Name Role Phone Adrianne Kelly MD Primary Care Provider [phone] Active Problems * This document contains information [...]
--- NOTE | 2024-11-08 09:22 | PC.NURSE ---
Nursing Note Cardiac Stress Test Reviewed: Medication, allergies and patient history reviewed. Stress Test: [x ] Patient tolerated stress test well. [ ] Patient unable to tolerate walking on treadmill. Switched to Lexiscan stress test. [ ] No chest pain noted per patient [x ] Chest pain that resolved prior to leaving stress lab. [x ] No dyspnea noted. [ ] Dyspnea that resolved prior to leaving stress lab. [x ] Patient left stress lab asymptomatic and hemodynamically stable. [ ] Patient taken to the Emergency Room due to non-resolving symptoms following stress test. [ ] Patient achieved target heart rate. [ ] Patient unable to achieve target heart rate. [ ] Aminophylline administered as reversal agent to Lexiscan (Regadenoson). [ ] Nitro administered. Nursing Comments:Pt had Lexiscan test done. Pt had some chest pain that she states she has all the time but it resolved within 2 minutes. Pt ambulated to cafeteria for breakfast prior to second set of images.
[2024-11-08] MEDS: REGADENOSON 0.4 MG/5 ML SYRINGE IV (09:33)
--- NOTE | 2024-11-11 09:10 | P.STRESS_ITS ---
Stress Test Stress Test Allergies Allergy/AdvReac Type Severity Reaction Status Date / Time codeine Allergy Intermediate Nausea Verified 01/20/24 10:41 pregabalin (From Lyrica) Allergy Intermediate Rash Verified 01/20/24 10:41 sulfamethoxazole (From Allergy Intermediate Rash Verified 01/20/24 10:41 Bactrim) trimethoprim (From Bactrim) Allergy Intermediate Rash Verified 01/20/24 10:41 Requesting physician: Mehrdad Mccormick Procedure: This was a Lexiscan stress test with myocardial perfusion imaging performed at the [facility] on 11/08/2024. Intravenous line was secured. The patient was attached to electrocardiographic monitoring. Baseline vital signs and ECG were obtained. Lexiscan 0.4 mg was administered intravenously followed by administration of Cardiolite. The patient then went on to obtain myocardial perfusion imaging. Resting heart rate was 58 bpm and peak heart rate was 75 bpm. Resting blood pressure was 124/78 and peak blood pressure was 128/78. General Information: Reason for Stress Test: Chest pain, dyspnea on exertion. Cardiac History and Risk Factors: Hypertension. Resting 12 - Lead Electrocardiogram: Sinus bradycardia. Cannot rule out anterior infarct, age undetermined. Stress Test: Protocol: Pharmacologic stress with Lexiscan. Exercise Capacity: Not assessed. Blood Pressure Response: Resting elevated blood pressure. Rhythm: Sinus with no arrhythmias. ST - Response: No ischemic ST changes seen. Patient Response: Chest pain reported by the patient following infusion of Lexiscan that resolved within 2. Interpretation: 1. No evidence of ischemic ST changes seen following infusion of Lexiscan. 2. Myocardial perfusion images will be reported separately.
== END 2024-11-08 08:39 | disposition home or self-care (01) ==
LOC: CARD 08:39
PROVIDERS: PCP Nurse Practitioner Family; Visit Provider Internal Medicine Interventional Cardiology
DX: R07.89 Other chest pain (principal); R06.09 Other forms of dyspnea
CPT/HCPCS: 93017; J2785

== ENCOUNTER 2024-12-05 12:54 | Outpatient (OUT) | payer OTHER, SELFPAY ==
[2024-12-05 13:16] LABS: Hematocrit 41.4 % (36.0-48.0); Hemoglobin 13.9 g/dL (12.0-16.0); Immature Granulocytes Abs Auto 0.03 10^3/uL (0.00-0.03); Immature Granulocytes Pct Auto 0.3 % (0.0-0.5); Lymphocytes Absolute Auto 2.1 10^3/uL (1.2-3.8); Mean Corpuscular HGB Conc 33.6 g/dL (29.9-35.2); Mean Corpuscular Hemoglobin 28.9 pg (26.7-34.0); Mean Corpuscular Volume 86.1 fL (81.0-99.0); Platelet Count 345 10^3/uL (150-450); Red Blood Count 4.81 10^6/uL (4.20-5.40); White Blood Count 10.1 10^3/uL (4.0-11.0)
[2024-12-05 13:23] LABS: Anion Gap 13.5; Blood Urea Nitrogen 22.0 mg/dL (7.0-18.0); Calcium 9.7 mg/dL (8.5-10.1); Carbon Dioxide 26.5 mmol/L (21.0-32.0); Chloride 103 mmol/L (98-107); Estimated GFR (African America 28 (>=60 mL/min/1.73m^2); Estimated GFR (Non-African Ame 23 (>=60 mL/min/1.73m^2); Glucose 128 mg/dL (74-106); Potassium 4.0 mmol/L (3.5-5.1); Sodium 139 mmol/L (136-145)
== END 2024-12-05 12:55 | disposition home or self-care (01) ==
LOC: LAB 12:55
PROVIDERS: PCP Nurse Practitioner Family; Visit Provider Internal Medicine Interventional Cardiology
DX: R94.39 Abnormal result of other cardiovascular function study (principal)
CPT/HCPCS: 36415; 80048; 85025

== ENCOUNTER 2024-12-10 10:35 | Outpatient (OUT) | payer OTHER, SELFPAY ==
[2024-12-10 11:42] LABS: Anion Gap 13.0; Blood Urea Nitrogen 13.0 mg/dL (7.0-18.0); Calcium 9.7 mg/dL (8.5-10.1); Carbon Dioxide 27.1 mmol/L (21.0-32.0); Chloride 105 mmol/L (98-107); Estimated GFR (African America >60 (>=60 mL/min/1.73m^2); Estimated GFR (Non-African Ame 52 (>=60 mL/min/1.73m^2); Glucose 97 mg/dL (74-106); Potassium 4.1 mmol/L (3.5-5.1); Sodium 141 mmol/L (136-145)
--- OUTSIDE RECORDS SUMMARY | 2024-12-10 13:47 | XMS_ITS | CCD ---
Author Organization [facility] Care Team Providers Care Chief Wellness Officer Name Role Phone Tanja, Leda Unavailable Unavailable Unavailable Unavailable Unavailable Unavailable Unavailable Unavailable Tanja, Leda Unavailable Unavailable Tanja, Leda Unavailable Unavailable Unavailable Unavailable Unavailable Heath Kirkpatrick Attending Gisselle vailable Heath Kirkpatrick Referring Gisselle vailable Rumschlag, Migonn Primary Care Provider TIM SHARMA Referring Unavailab le RUMSCHLAG, MIGNON Primary Care Unavailable RAVTIM ORTIZ Referring Unavailab le RUMSCHLAG, MIGNON Primary Care Unavailable ALLAN SHARMAMPSAGER Referring Unavailab le RUMSCHLAG, MIGNON Primary Care Unavailable Tanja SHOT POLISHER, Leda Unavailable NICOLE, DR VU Novoa Attending [...] Admitting Unavailable NATASHA RANDLE. Attending Unavailable ANTIONE SANTA Referring Unavailable PCP, NOT IN SYSTEM Primary [...] PCP, NOT IN SYSTEM Primary Care Unavailable ALEXIS ELLIOTT M Attending Unavailable BESTDRE Emerson Admitting Unavailable IMVIOLETA REECE M Consulting Unavailable FRAN WILD Consulting Unavailable LEXI, KHALID M Attending Unavailable LEXI, KHALID M Referring Unavailable PCP, NOT IN SYSTEM Primary Care Unavailable ZAMORA, SHAWN E Referring Unavailable ZAMORA, SHAWN E Primary Care Unavailable ZAMORA, SHAWN E Referring Unavailable ZAMORA, SHAWN E Primary Care Unavailable AL-MAURICE, WANDA Referring Unavailable ZAMORA, SHAWN E Primary Care Unavailable TERRASI, HANANE A Referring Unavailable ZAMORA, SHAWN E Primary Care Unavailable SHAIKH BOOKER Attending Unavailable SHAIKH BOOKER Attending Unavailable ERICA POMPA Attending UnavailVu Arguello MD Primary Care Provider Erica Pompa NP Unavailable Pcp, Not In System Primary Care Provider Unavail able Shawn Zamora MD Primary Care Provider ALTOROK, NEZAM I Referring Unavailable ELTAHAWY, EHAB Attending Unavailable MANNY, EHAB Attending Unavailable MADIEK, NEZAM I Attending Unavailable EDUARDO SAUNDERS Referring Unavailable EDUARDO SAUNDERS Admitting Unavailable EDUARDO SAUNDERS Attending Unavailable EDUARDO SAUNDERS Referring Unavailable ALTOROK, NEZAM I Referring Unavailable ALTOROK, NEZAM I Referring Unavailable ALTOROK, NEZAM I Referring Unavailable Allergies Allergy Classification Reported Allergen(s) Allergy Type Date of Onset Reaction(s) Facility (20 sources) codeine; Translations: [Codeine] Drug Allergy 01-19-20 12 Nausea And Vomiting, GI intolerance, Vomiting [facility] (4 sources) pregabalin; Translations: [Lyrica] Drug Allergy [facility] (4 sources) sulfamethoxazole / trimethoprim; Translations: [Bactrim] Drug Allergy [facility] (4 sources) -No Environmental Allergies; Translations: [-No Environmental Allergies] Allergy to substance (disorder) [facility] (2 sources) -No Known Food Allergies Allergy to substance (disorder) [facility] (3 sources) NSAIDs Propensity to adverse reactions to drug 02-24-20 15 Other (See Comments) [place], [place] (20 sources) pregabalin; Translations: [PREGABALIN] Drug Allergy 01-19-20 12 Other (See Comments), Unknown [place], [place] (20 sources) Sulfamethoxazole / Trimethoprim; Translations: [SULFAMETHOXAZOLE-T RIMETHOPRIM] Drug Allergy 11-15-19 16 Hives [place], [place] (1 source) pregabalin Drug Allergy 12-31-[address] [facility] (1 source) Sulfamethoxazole / Trimethoprim Drug Allergy 04-15-[address] [facility] Medications Current Medications Medication Drug Class(es) Dates Sig (Normalized) Sig (Original) [id number] 200 actuat albuterol 0.09 mg/actuat metered dose inhaler (11 sources) beta2-Adrenergic Agonist Start: 01-31-2024 take 2 [...] Start: 05-19-2018 End: 05-19-2018 VENTOLIN HFA 90MCG/ACTUAT PR SC 05/19/2018 - 05/19/2018 Provider: End: 10-14-2023 take 2 puff(s) by inhalation every six hours as needed for wheezing albuterol (PROVENTIL HFA;VENTOLIN HFA) 90 mcg/actuation inhaler Inhale 2 puffs every 6 (six) hours as needed for wheezing. 10/14/2023 Discontinued take 2 puff(s) by in halation every [...] / ipratropium bromide 0.167 mg/ml inhalation solution (20 sources) Anticholinergic, beta2-Adrenergic Agonist Start: 01-31-2024 End: [...] 01/02/2021 Active atovaquone 150 mg/ml oral suspension (20 sources) Antimalarial, Antiprotozoal Start: 10-26-2023 take 10 [...] with meals. 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 30 tablet 3 01/15/2024 Active busPIRone hydrochloride 15 mg oral tablet (20 sources) Start: 11-02-2023 End: 01-29-2024 take 1 tablet by mouth once busPIRone (Buspar) 15 MG tablet Indications: ARSH (generalized anxiety disorder) ([facility]) Take 1 tablet (15 mg) by mouth every 12 (twelve) hours 180 tablet 01/29/2024 Active Start: 10-25-2023 take 1 tablet by jayson th in the morning, then take 1 tablet by mouth at bedtime busPIRone (BUSPAR) 5 mg tablet Take 1 tablet (5 mg total) by mouth in the morning and 1 tablet (5 mg total) before bedtime. 60 tablet 10/25/2023 Active Start: 10-15-2023 take 15 mg by mouth twice harmeet y 15 mg, oral, 2 times daily, First dose on 10/15/23 at 0900, Look-alike/sound-alike medication - verify indication for use. Avoid grapefruit juice. Calcium (4 sources) Phosphate Binder, Calcium Start: 07-19-2018 Calc ium 600MG Oral Tablet 07/19/2018 Provider: Start: 09-14-2017 End: 09-14-2017 CALCIUM 600 600 mg calcium(1 ,500 MG) [facility] 09/14/2017 - 09/14/2017 Provider: take 600 mg by mouth twice daily CALCIUM ORAL Take 600 mg by mouth 2 (two) times a day. Active take 600 mg by mouth twice daily CALCIUM ORAL Take 600 mg by mouth 2 (two) times a day. calcium carbonate 1250 mg / cholecalciferol 200 unt oral tablet (3 sources) Vitamin D Start: 04-09-2014 take 1 tablet by mouth once daily, then take 2.5-500 tablets by mouth once calcium-vitamin D (OSCAL 500/200 D-3) 500-200 MG-UNIT per tablet TAKE ONE TABLET BY MOUTH ONCE A DAY 30 tablet 3 04/09/2014 Active 100 ml calcium gluconate 20 mg/ml injection (1 source) Start: 10-15-2023 take 4-4.3 mg intravenously every hour as needed 2,000 mg, intravenous, at 50 mL/hr, Administer over 2 Hours, As needed, ionized calcium 4 to 4.3 mg/dL, Starting on 10/15/23 at 1021, IV Administration of calcium via a central or deep vein preferred. Avoid administration in small hand veins VESICANT (RED) calcium gluconate 3,000 mg in sodium chloride 0.9 % 100 mL IVPB (1 source) Start: 10-15-2023 take 3.5-3.9 mg intravenously every hour as needed 3,000 mg, intravenous, at 43.3 mL/hr, Administer over 3 Hours, As needed, ionized calcium 3.5 to 3.9 mg/dL, Starting on 10/15/23 at 1021, IV Administration of calcium via a central or deep vein preferred. Avoid administration in small hand veins VESICANT (RED) calcium gluconate 4,000 mg in sodium chloride 0.9 % 250 mL IVPB (1 source) Start: 10-15-2023 take 3.4 mg intravenously every hour as needed 4,000 mg, intravenous, at 72.5 mL/hr, Administer over 4 Hours, As needed, ionized calcium 3.4 mg/dL or less, Starting on 10/15/23 at 1021, IV administration of calcium via a central or deep vein is preferred. Avoid administration in small hand veins. VESICANT (RED) carvedilol 25 mg oral tablet (20 sources) alpha-Adrenergi c George, beta-Adrenergic George Start: 10-25-2023 End: 04-30-2024 take 1 tablet by mouth in the morning, then take 1 tablet by mouth at bedtime carvediloL (COREG) 25 mg tablet Take 1 tablet (25 mg total) by mouth in the morning and 1 tablet (25 mg total) before bedtime. 60 tablet 10/25/2023 Active cetirizine hydrochloride 10 mg oral tablet (10 sources) Histamine-1 Receptor Antagonist Start: 11-02-2023 End: 04-30-2024 take 1 tablet by mouth once daily cetirizine (ZyrTEC) 10 MG tablet Indications: Chronic rhinitis Take 1 tablet (10 mg) by mouth Daily 90 tablet 01/31/2024 04/30/2024 Active Start: 07-19-2018 ZyrTEC Allergy 10MG Oral Tablet 07/19/2018 Provider: Start: 11-14-2017 End: 10-14-2023 take 1 tablet by mouth once daily at bedtime as needed for cough Zyrtec 10 mg oral tablet 11/14/2017 take 1 tablet (10 mg) by oral route once daily at bedtime as needed for cough/congestion Start: 11-14-2017 End: 11-14-2017 ZYRTEC 10 mg MISC 11/14/2017 - 11/14/2017 Provider: cholecalciferol 0.125 mg oral tablet (10 sources) Vitamin D Start: 01-15-2024 take 1 [...] adjustment) donepezil hydrochloride 10 mg oral tablet (20 sources) Start: 11-02-2023 End: 04-30-2024 take 1 tablet by mouth in the morning donepezil (Aricept) 10 MG tablet Indications: 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 90 tablet 1 11/02/2023 04/30/2024 Active Start: 10-15-2023 take 5 mg by mouth o nce daily 5 mg, oral, Nightly, First dose on 10/15/23 at 2200, Look-alike/sound-alike medication - verify indication for use. take 1 tablet by jayson once daily donepezil (ARICEPT) 10 MG tablet [...] Start: 10-26-2023 take 1 capsule by mo [facility] in the morning DULoxetine (CYMBALTA) 30 mg capsule Take 1 capsule (30 mg total) by mouth in the morning. 30 capsule 10/26/2023 Active Start: 07-19-2018 DULoxetine HCl 30MG Oral Capsule, delayed-release particles 07/19/2018 Provider: Start: 05-19-2018 End: 05-19-2018 DULOXETINE 30MG MISC 019 - 05/19/2018 Provider: Start: 05-19-2018 End: 05-19-2018 DULOXETINE 60MG MISC 019 - 05/19/2018 Provider: Start: 03-07-2018 take 1 capsule by mo ut once daily duloxetine 30 mg oral capsule,delayed release(DR/EC) 03/07/2018 take 1 capsule (30 mg) by oral route once daily, take with 60 mg capsule to equal 90 mg daily Start: 03-07-2018 End: 03-07-2018 DULOXETINE 60MG MISC 018 - 03/07/2018 Provider: Start: 03-07-2018 End: 03-07-2018 DULOXETINE 30MG MISC 018 - 03/07/2018 Provider: Start: 08-16-2017 take 1 capsule by [facility] once daily 60 mg, oral, Daily, First dose on 10/15/23 at 0900, Look-alike/sound-alike medication - verify indication for use. Swallow whole-do not crush or chew. Although the supervisor instrument repair does not recommend opening the capsule to facilitate administration, the contents of capsule may be sprinkled on applesauce or in apple juice and swallowed (without chewing) immediately; do not sprinkle contents on chocolate pudding. take 1 capsule by [facility] once daily duloxetine 30 mg oral capsule,delayed release(DR/EC) take 1 capsule (30 mg) by oral route once daily ergocalciferol 1.25 mg oral capsule (4 sources) Provitamin D2 Compound Start: 07-19-2018 Ergocalciferol [id number] Oral Capsule, conventional 07/19/2018 Provider: Start: 09-14-2017 take 1 capsule by [facility] every week Vitamin D2 50,000 unit oral capsule 09/14/2017 take 1 capsule (50,000 unit) by oral route once weekly ferrous sulfate 325 mg oral tablet (20 sources) Start: 10-26-2023 End: 04-30-2024 take 1 tablet by mouth once daily at breakfast ferrous sulfate 325 (65 FE) mg tablet Take 1 tablet (325 mg total) by mouth daily with breakfast. 30 tablet 10/26/2023 Active Start: 10-16-2023 take 325 mg by mouth once daily at breakfast 325 mg, oral, Daily with breakfast, First dose on Mon10/16/23 at 0800, Give ferrous sulfate 2 hours before or 4 hours after antacids. 60 actuat fluticasone propionate 0.5 mg/actuat / salmeterol 0.05 mg/actuat dry powder inhaler (2 sources) Corticosteroid, beta2-Adrenergic Agonist Start: 07-20-2018 Advair Diskus 500-50MCG/DOSE Inhalation Aerosol Powder Breath Activated 07/20/2018 Provider: Leda Agrawal CNP Start: 07-12-2018 End: 07-20-2018 Advair Diskus 250-50MCG/DOSE Inhalation Aerosol Powder Breath Activated 07/12/2018 - 07/20/2018 Provider: Leda Agrawal CNP Pbvxfenompr-Txtrlsoyl-Zuxhfw (Trelegy Ellipta) 200-62.5-25 MCG/ACT aerosol powder (4 sources) Start: 11-02-2023 take 1 puff(s) by inhalation once daily Ezelmollvov-Mllzepjon-Kkoans (Trelegy Ellipta) 200-62.5-25 MCG/ACT aerosol powder Indications: Chronic obstructive pulmonary disease, unspecified COPD type (CMS/HCC) Inhale 1 puff Daily 28 each 3 11/02/2023 Active 4 ml furosemide 10 mg/ml injection (6 sources) Loop Diure tic Start: 10-16-2023 80 mg, intravenous, Every 8 hours scheduled, First dose (after last modification) on 10/16/23 at 2200, Look-alike/sound-alike medication - verify indication for use. IVP rate = 20 mg/min Start: 10-15-2023 End: 10-16-2023 60 mg, intravenous, Every 8 hours scheduled, First dose on Mon10/15/23 at 1030, Look-alike/sound-alike medication - verify indication for use. IVP rate = 20 mg/min Start: 05-19-2018 End: 05-19-2018 Furosemide 20MG OR TABS 04/25 - 05/19/2018 Provider: Conversion Provider take 1 tablet by jayson once daily furosemide 20 mg oral tablet take 1 tablet (20 mg) by oral route once daily gabapentin 600 mg oral tablet (7 sources) Anti-epileptic Agent Start: 07-19-2018 Gabapenti n 600MG Oral Tablet 07/19/2018 Provider: Start: 05-19-2018 End: 05-19-2018 GABAPENTIN 300 mg [facility] 05/19 - 05/19/2018 Provider: Start: 02-13-2018 End: 02-13-2018 Gabapentin 600MG OR TABS - 02/13/2018 Provider: Start: 09-26-2017 take 1 capsule by mo ut three times daily gabapentin 300 mg oral capsule 09/26/2017 take 1 capsule (300 mg) by oral route 3 times per day Start: 09-26-2017 End: 09-26-2017 GABAPENTIN 300 mg MISC 09/26 - 09/26/2017 Provider: glucagon (rdna) 1 mg injection (1 source) Antihypoglycemic Agent Start: 06-23-2024 1 mg, i ntramuscular, As needed, low blood sugar, blood glucose less than 70 mg/dL and unconscious or NPO without IV access., Starting on 10/15/23 at 0208, If conscious and not NPO, immediately follow with meal tray or high protein (7Grams) snack if tray not available. If NPO, initiate IV 5% Dextrose/Water at 100 mL/hr and contact prescriber for additional orders. If blood glucose is not greater than 70 mg/dL after initial treatment, repeat treatment. 150 ml glucose 50 mg/ml injection (3 sources) Start: 10-15-2023 15 g, oral, As needed, low blood sugar, blood glucose less than 70 mg/dL, Starting on 10/15/23 at 0208, If patient conscious and taking PO. If blood glucose is not greater than 70 mg/dL after initial treatment, repeat treatment. Start: 10-15-2023 25 mL, intrave nous, As needed, low blood sugar, blood glucose less than 70 mg/dL and unconscious or NPO with IV access, Starting on 10/15/23 at 0208, Push over 1-3 minutes STAT. If conscious and not NPO, immediately follow with meal tray or high protein (7 grams) snack if tray not available. If NPO, initiate 5% dextrose in water at 100 mL/hr and contact prescriber for additional orders. If blood glucose is not greater than 70 mg/dL after initial treatment, repeat treatment. VESICANT (RED) Warning: HYPERTONIC solution. Start: 10-15-2023 take 70 mg intraveno usly every hour 100 mL/hr, intravenous, Continuous PRN, blood glucose less than 70 mg/dL, Starting on 10/15/23 at 0208, Use immediately following dextrose 50% or glucagon treatment for patients who are unconscious or NPO. Contact prescriber for additional orders. If blood glucose is not greater than 70 mg/dL after initial treatment, repeat treatment. 12 hr guaiFENesin 600 mg extended release oral tablet (3 sources) Start: 01-31-2024 End: 02-14-2024 guaiFENesin (Mucinex) 600 MG 12 hr tablet Indications: Chronic obstructive pulmonary disease with acute exacerbation (CMS/HCC) Take 2 tablets (1,200 mg) by mouth every 12 (twelve) hours if needed for cough for up to 14 days Do not crush, chew, or split. 28 tablet 01/31/2024 02/14/2024 Active Start: 01-02-2021 End: 10-14-2023 guaiFENesin 1,200 mg tablet extended release 12hr Take 1,200 mg by mouth every 12 (twelve) hours. 69 each 01/02/2021 10/14/2023 Discontinued hydrALAZINE hydrochloride 100 mg oral tablet (5 sources) Arteriolar Vasodilator Start: 10-16-2023 100 mg, oral, Every 8 hours scheduled, First dose (after last modification) on 10/16/23 at 2200, Hold for systolic blood pressure less than 110 Look-alike/sound-alike medication - verify indication for use. Start: 10-15-2023 take 20 mg intraveno usly every four hours as needed 20 mg, intravenous, Every 4 hours PRN, high blood pressure, sbp>180, Starting on 10/15/23 at 1020, Look-alike/sound-alike medication - verify indication for use. Administer IV doses as a slow IV push; maximum rate: 5 mg/minute. Start: 10-15-2023 End: 10-16-2023 50 mg, oral, Every 8 hours s cheduled, First dose on 10/15/23 at 1030, Hold for systolic blood pressure less than 110 Look-alike/sound-alike medication - verify indication for use. Start: 10-14-2023 End: 10-14-2023 take 10 mg intravenously every four hours as needed 10 mg, intravenous, Every 4 hours PRN, high blood pressure, [phone], Starting on 10/15/23 at 1020, Look-alike/sound-alike medication - verify indication for use. Administer IV doses as a slow IV push; maximum rate: 5 mg/minute. hydroCHLOROthiazide 12.5 mg / lisinopril 10 mg [...] Provider: hydrOXYzine hydrochloride 25 mg oral tablet (14 sources) Antihistamine Start: 11-02-2023 End: 04-30-2024 take [...] 50MG MIS C 03/13/2018 - 03/13/2018 Provider: 4 ml labetalol hydrochloride 5 mg/ml cartridge (3 sources) beta-Adrenergic George Start: 10-15-2023 take 10 mg intravenously every four hours as needed 10 mg, intravenous, Every 4 hours PRN, high blood pressure, Systolic blood pressure more than 160 hold for heart rate less than 60, Starting on 10/15/23 at 1021, Look-alike/sound-alike medication - verify indication for use. Start: 10-15-2023 End: 10-15-2023 40 mg, intravenous, Once, On 10/15/23 at 0030, For 1 dose, For systolic blood pressure greater than 180 mmHg Look-alike/sound-alike medication - verify indication for use. Start: 10-14-2023 End: 10-14-2023 20 mg, intravenous, Once, On 10/14/23 at 2325, For 1 dose, For systolic blood pressure greater than 180 mmHg Look-alike/sound-alike medication - verify indication for use. lamoTRIgine 100 mg oral tablet (4 sources) [...] 7 days 7 tablet 01/31/2024 02/07/2024 Active lisinopril 10 mg oral tablet (2 sources) Angiotensin Converting Enzyme Inhibitor take 1 tablet by mouth in the morning lisinopriL (PRINIVIL,ZESTRIL) 10 mg tablet Take 1 tablet (10 mg total) by mouth in the morning. 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 90 tablet 3 01/15/2024 Active Start: 10-15-2023 take 400 mg by mouth twice karen ly 400 mg, oral, 2 times daily, First dose on 10/15/23 at 1030 50 ml magnesium sulfate 40 mg/ml injection (2 sources) Start: 10-15-2023 2,000 mg, intr avenous, at 25 mL/hr, Administer over 120 Minutes, As needed, Magnesium level 1.7 to 1.9 mg/dL, or Ionized Magnesium level 0.45 to 0.5 mmol/L., Starting on 10/15/23 at 0208, Recheck magnesium level 4 hours after infusion complete. With each magnesium result continue the replacement orders as needed. Start: 10-15-2023 4,000 mg, intr avenous, at 25 mL/hr, Administer over 240 Minutes, As needed, Magnesium level 1.6 mg/dL or less, or Ionized Magnesium level 0.44 mmol/L or less, Starting on Mon10/15/23 at 0208, Recheck magnesium level 4 hours after infusion complete. With each magnesium result continue the replacement orders as needed. meloxicam 15 mg oral tablet (7 sources) Nonsteroidal Anti-inflammatory Drug Start: 01-20-2024 meloxicam (Mobic) 15 MG tablet 01/20/2024 Active Start: 07-19-2018 Mobic 15MG Ora l Tablet 07/19/2018 Provider: Start: 09-14-2017 End: 09-14-2017 Mobic 15MG OR TABS 09/14/2017 Provider: methylPREDNISolone sod suc (PF) (Solu-MEDROL) 1,000 mg in sodium chloride 0.9 % 50 mL IVPB (1 source) Start: 10-18-2023 End: 10-21-2023 1,000 mg, intravenous, at 58 mL/hr, Administer over 60 Minutes, Every 24 hours scheduled, First dose on Mon10/18/23 at 1400, For 3 doses, May alter blood glucose or insulin requirements. Look-alike/sound-alike medication - verify indication for use. metoprolol tartrate 25 mg oral tablet (1 source) beta-Adrenerg ic George Start: 10-17-2023 take 25 mg by mouth twice daily 25 mg, oral, 2 times daily, First dose on Mon10/17/23 at 0900, Look-alike/sound-alike medication - verify indication for use. omeprazole 40 mg delayed release oral capsule (20 sources) Proton Pump Inhibitor Start: 11-02-2023 take [...] 40 mg by mouth daily 0 Active ondansetron 4 mg disintegrating oral tablet (1 source) Serotonin-3 Receptor Antagonist Start: 10-15-2023 take 1 tablet by mouth every six hours as needed for nausea and vomiting 4 mg, oral, Every 6 hours PRN, nausea, vomiting, Starting on 10/15/23 at 0211 pantoprazole 40 mg delayed release oral tablet (1 source) Proton Pump Inhibitor Start: 10-15-2023 40 mg, oral, Every morning before breakfast, First dose on 10/15/23 at 0700, Look-alike/sound- alike medication - verify indication for use. If patient is receiving enteral feeding, consider alternative PPI or continue IV pantoprazole until the delayed-release tablet can be taken orally, Indication: GERD microencapsulated potassium chloride 20 meq extended release oral tablet (4 sources) Start: 10-15-2023 20 mEq, oral, 3 times daily, First dose on 10/15/23 at 1400, Hold for potassium more than 4.5 Do not crush or chew. Start: 10-15-2023 20-60 mEq, ora l, As needed, potassium supplementation, Starting on 10/15/23 at 1021, Progress to oral potassium replacement when patient tolerating oral intake. If dose administered, recheck potassium level 4 hours after last dose. For potassium level 3.4 to 3.7 mmol/L =20 mEq. For potassium level 3.1 to 3.3 mmol/L =40 mEq. For potassium level 3 mmol/L or less =60 mEq. Do not crush or chew. Start: 10-15-2023 End: 10-15-2023 30-50 mEq, oral, As needed, potassium supplementation, Starting on 10/15/23 at 0208, Progress to oral potassium replacement when patient tolerating oral intake. If dose administered, recheck potassium level 4 hours after last dose. For potassium level 3.4 to 3.8 mmol/L and GFR 30 mL/min or greater=30 mEq. For potassium level 3.1 to 3.3 mmol/L and GFR 30 mL/min or greater=40 mEq. For potassium level 3 mmol/L or less and GFR 30 mL/min or greater=50 mEq. Do not crush or chew. Start: 10-14-2023 End: 10-15-2023 40 mEq, oral, Once, On Sat at 2325, For 1 dose, Do not crush or chew. predniSONE 20 mg oral tablet (20 sources) Start: 01-15-2024 End: 02-19-2024 take 2.5 [...] 53 tablet 01/15/2024 02/19/2024 Active Start: 10-26-2023 End: 01-15-2024 take 3 tablets by mouth at mealtime predniSONE (Deltasone) 20 MG tablet [...] Active rosuvastatin calcium 10 mg oral tablet (20 sources) HMG-CoA Reductase Inhibitor Start: 10-15-19 take 10 mg by mouth once daily 10 mg, oral, Daily, First dose on Mon10/15/23 at 0900, Look-alike/sound-a like medication - verify indication for use. sodium phosphate 20 mmol in sodium chloride 0.9 % 250 mL IVPB (1 source) Start: 10-15-19 sodium phosphate 20 mmol in sodium chloride 0.9 % 250 mL IVPB spironolactone 25 mg oral tablet (2 sources) Aldosterone Antagonist Start: 10-17-19 25 mg, oral, Every 12 hours scheduled, First dose (after last modification) on Mon10/17/23 at 2100, Hold for potassium level greater than 4.4 Start: 10-16-2023 End: 10-17-2023 25 mg, oral, Daily, First do se on Mon10/16/23 at 1445, Hold for potassium level greater than 4.4 terazosin 1 mg oral capsule (17 sources) alpha-Adrenergic George Start: 10-25-2023 take 1 capsule by mouth once daily terazosin (HYTRIN) 1 mg capsule Take 1 capsule (1 mg total) by mouth nightly. 30 capsule 10/25/2023 Active traMADol hydrochloride 50 mg oral tablet (6 sources) Opioid Agonist Start: 07-19-2018 traMADol HCl 50MG Oral Tablet 07/19/2018 Provider: [...] End: 11-14-2017 TRAMADOL 50 mg MISC 11/15/19 - 11/14/2017 Provider: take 1 tablet [...] bedtime vitamin b12 1 mg oral tablet (20 sources) Vitamin B12 Start: 10-26-2023 End: 04-30-2024 take 1 tablet by mouth in the morning cyanocobalamin 1000 MCG tablet Take 1 tablet (1,000 mcg total) by mouth in the morning. 30 tablet 10/26/2023 Active Start: 10-16-2023 take 1000 ug by mouth once karen ly 1,000 mcg, oral, Daily, First dose on Mon10/16/23 at 1530 Start: 10-16-2023 End: 10-16-2023 inject 1000 ug by intramuscular injection once 1,000 mcg, intramuscular, Once, On Mon10/16/23 at 1530, For 1 dose Completed/Discontinued Medications Medication Drug Class(es) Dates Sig (Normalized) Sig (Original) acetaminophen 500 mg oral tablet (6 sources) Start: 11-29-2023 End: 11-29-2023 take 1000 mg by mouth once 1,000 mg, oral, Once, On Mon11/29/23 at 0915, For 1 dose Start: 10-15-2023 take 1 tablet by jayson th every six hours as needed for pain and headache and fever 650 mg, oral, Every 6 hours PRN, mild pain - pain scale 1-3, headaches, temperature greater than 38 C, Starting on 10/15/23 at 0211 Start: 10-15-2023 End: 10-15-2023 take 650 mg by mouth once 650 mg, oral, Once, On Sun at 0045, For 1 dose take 2 tablets by [facility] every four hours as needed for pain acetaminophen (TYLENOL) 325 MG tablet Take 650 mg by mouth every 4 hours as needed for Pain 0 Active Budesonide / formoterol (4 sources) Corticosteroid, beta2-Adrenergic Agonist End: 10-14-2023 take 2 puff(s) by inhalation twice daily budesonide-formoteroL (SYMBICORT) 160-4.5 mcg/actuation inhaler Inhale 2 puffs 2 (two) times a day. 10/14/2023 Discontinued take 2 puff(s) by in halation twice daily budesonide-formoterol (SYMBICORT) 80-4.5 MCG/ACT AERO Inhale 2 puffs into the lungs 2 times daily 0 Active calcium carbonate 1500 mg oral tablet (3 sources) Start: 09-14-2017 take 1 tablet by mouth twice daily Calcium 600 600 mg calcium (1,500 mg) oral tablet 09/14/2017 take 1 tablet by oral route twice daily cholecalciferol, vitamin D3, (VITAMIN D3 ORAL) (14 sources) End: 01-15-2024 take 2000 [IU] by mouth once daily cholecalciferol, vitamin D3, (VITAMIN D3 ORAL) Take 2,000 Unit by mouth daily. 01/15/2024 Discontinued (Reorder) take 2000 [IU] by mouth once karen ly cholecalciferol, vitamin D3, (VITAMIN D3 ORAL) Take 2,000 Unit by mouth daily. Active take 2000 [IU] by mouth once karen ly cholecalciferol, vitamin D3, (VITAMIN D3 ORAL) Take 2,000 Unit by mouth daily. Clindamycin (2 sources) Lincosamide Antibacterial Start: 02-13-2018 End: 02-13-2018 CLINDAMYCIN HCL 300MG MISC 02/13/2018 - 02/13/2018 Provider: Start: 02-13-2018 End: 02-20-2018 take 1 capsule by mouth twice daily clindamycin HCl 300 mg oral capsule 02/13/2018 02/20/2018 take 1 capsule (300 mg) by oral route 2 times per day for 7 days diphenhydrAMINE (1 source) Histamine-1 Receptor Antagonist Start: 11-29-2023 End: 11-29-2023 take 25 mg intravenously once 25 mg, intravenous, Once, On Mon11/29/23 at 0915, For 1 dose, Look-alike/sound-alike medication - verify indication for use., Intravenous Specific Administration: IV Push ferumoxytoL (FERAHEME) 510 mg in sodium chloride 0.9 % 100 mL IVPB (1 source) Start: 10-16-2023 End: 10-16-2023 510 mg, intravenous, at 234 mL/hr, Administer over 30 Minutes, Once, On Mon10/16/23 at 1530, For 1 dose, Patient in reclined or semi-reclined position. Monitor for at least 30 min after infusion. AVOID the use of H1 antihistamines, such as diphenhydramine, as this may worsen hypersensitivity reactions., Indications: iron deficiency anemia fluticasone propionate 0.05 mg/actuat metered dose nasal spray (1 source) Corticosteroid Start: 07-19-2020 End: 10-14-2023 take 1 spray(s) nasal route once daily fluticasone propionate (FLONASE) 50 mcg/actuation nasal spray Administer 1 spray into each nostril daily. 16 g 07/19/2020 10/14/2023 Discontinued 1 ml heparin sodium, porcine 5000 unt/ml injection (1 source) Unfractionated Heparin, Anti-coagulant Start: 10-16-2023 End: 10-18-2023 5,000 Units, subcutaneous, Every 8 hours scheduled, First dose on Mon10/16/23 at 0600, Notify prescriber if INR greater than 1.9, hemoglobin less than 10 mg/dL, aPTT greater than 40 seconds, and/or platelet count less than 100,000/mm Look-alike/sound-alike medication - verify indication for use. Observe for bleeding. ibuprofen 800 mg oral tablet (4 sources) Nonsteroidal Anti-inflammator y Drug Start: 05-19-2018 End: 05-19-2018 Ibuprofen 800MG OR TABS 05/19/2018 - 05/19/2018 Provider: Conversion Provider End: 09-14-2017 take 1 tablet by mouth three times daily at mealtime ibuprofen 800 mg oral tablet 09/14/2017 take 1 tablet (800 mg) by oral route 3 times per day with food kit for prep of [id number] 2.5 mg recon soln 5 millicurie (1 source) Start: 10-17-2023 End: 10-17-2023 5 millicurie, intravenous, Once in imaging, contrast, Radiopharmaceutical, Starting on Mon10/17/23 at 0744, For 1 dose lidocaine 50 mg/ml topical cream (5 sources) Antiarrhythmic, Amide Local Anesthetic Start: 09-19-2017 lidocaine 5 % topica l cream 09/19/2017 apply to affected area every 4-6 hours as needed for pain Start: 09-19-2017 lidocaine 5 % topical cream 09/19/2017 apply to affected area every 4-6 hours as needed for pain Start: 09-19-2017 End: 09-19-2017 Lidocaine 5% EX CREA 018 - 09/19/2017 Provider: maalox-lidocaine (GI COCKTAIL) 3:1 oral suspension 40 mL (1 source) Start: 10-14-2023 End: 10-14-2023 take 40 mL by mouth once 40 mL, oral, Once, On 10/14/23 at 2325, For 1 dose methylPREDNISolone 125 mg injection (2 sources) Corticosteroid Start: 11-29-2023 End: 11-29-2023 100 mg, intravenous, Once, On Mon11/29/23 at 0915, For 1 dose, May alter blood glucose or insulin requirements. Look-alike/sound -alike medication - verify indication for use. Start: 01-02-2021 End: 10-14-2023 methylPREDNISolone (MEDROL D OSEPACK) 4 mg tablet follow package directions 21 tablet 01/02/2021 10/14/2023 Discontinued mupirocin 20 mg/ml topical cream (2 sources) RNA Synthetase Inhibitor Antibacterial Start: 02-13-2018 End: 02-13-2018 Bactroban 2% EX CREA 02/13/2018 - 02/13/2018 Provider: Start: 02-13-2018 Bactroban 2 % topical cream 02/13/2018 apply a small amount to the affected area by topical route 3 times per day x 14 days 24 hr nicotine 0.583 mg/hr transdermal system (1 source) Cholinergic Nicotinic Agonist Start: 10-08-2020 End: 10-14-2023 apply 14 mg transdermal route every hour, then apply 7 mg transdermal route every twenty-four hours nicotine (NICODERM CQ) 14 mg/24 hr 14 mg /24 hrs for 2 weeks then 7 mg per 24 hrs fpr 2 weeks 20 patch 10/08/2020 10/14/2023 Discontinued riTUXimab-abbs (TRUXIMA) 1,000 mg in sodium chloride 0.9 % 500 mL chemo IVPB (1 source) Start: 11-29-2023 End: 11-29-2023 1,000 mg, intravenous, Once, On Mon11/29/23 at 0945, For 1 dose, Initial infusion: Start rate of 50 mg/hour; if there is no reaction, increase the rate by 50 mg/hour increments every 30 minutes, to a maximum rate of 400 mg/hour. Subsequent infusions may be run over at least 2 hours if tolerated. If reaction occurs, after symptoms resolve, infusion may be resumed with at least a 50% rate reduction and retitrated as tolerated. Look-alike/sound- alike medication - verify indication for use. 1000 ml sodium chloride 9 mg/ml injection (6 sources) Start: 11-29-2023 End: 11-29-2023 take 25 mL intravenously every hour as needed 25 mL/hr, intravenous, Continuous PRN, When mainline IV needed., Starting on Mon11/29/23 at 0908, Match IVF to base solution of product being administered to ensure compatibility. Start: 10-17-2023 End: 10-17-2023 10 mL, intravenous, Once in imaging, line care, Nuclear Medicine, Starting on Mon10/17/23 at 0744, For 1 dose Start: 10-15-2023 End: 10-15-2023 take 50 mL intravenously every hour 50 mL/hr, intravenous, Continuous, Starting on Mon10/15/23 at 0830 Start: 10-15-2023 take 20 mL intraveno usly every hour as needed 20 mL/hr, intravenous, Continuous PRN, to maintain patency of lines, Starting on Mon10/15/23 at 0208 Start: 10-15-2023 take 25 mL intraveno usly every hour as needed 25 mL, intravenous, at 100 mL/hr, Administer over 15 Minutes, As needed, line care, line care after IVPB administration, Starting on Mon10/15/23 at 0208 Start: 10-14-2023 3 mL, intraven ous, As needed, line care, before and after each intermittent use, Starting on 10/14/23 at 2218 technetium pentetate (DTPA AEROSOL) inhalation 35 millicurie (1 source) Start: 10-17-2023 End: 10-17-2023 35 millicurie, inhalation, Once in imaging, contrast, Radiopharmaceutical, Starting on Mon10/17/23 at 0744, For 1 dose 10 actuat tiotropium 0.0025 mg/actuat inhalation spray (4 sources) Anticholinergic Start: 11-12-2020 End: 10-14-2023 take 2 puff(s) by mouth once daily SPIRIVA RESPIMAT 2.5 mcg/actuation mist INHALE TWO PUFFS (5MCG) BY MOUTH ONCE DAILY 4 g 10 11/12/2020 10/14/2023 Discontinued Start: 02-21-2019 take 1 capsule by in halation once daily tiotropium (SPIRIVA HANDIHALER) 18 MCG inhalation capsule Inhale 1 capsule into the lungs daily 30 capsule 11 02/21/2019 Active VITAMIN D2 50,000UNIT MISC (2 sources) Start: 05-19-2018 End: 05-19-2018 VITAMIN D2 50,000UNIT MISC 05/19/2018 - 05/19/2018 Provider: Start: 09-14-2017 End: 09-14-2017 VITAMIN D2 50,000UNIT MISC 0 09/14/2017 - 09/14/2017 Provider: Problems Active Problems Problem Classification Problem Date Documented Date Episodic/Chronic Anxiety disorders (20 sources) Generalized anxiety disorder; Translations: [Generalized anxiety disorder] Onset: 7 01-29-2024 Chronic Bacterial infection; unspecified site (20 sources) Bacterial infection, unspecified, in conditions classified elsewhere and of unspecified site; Translations: [Methicillin resistant Staphylococcus aureus in conditions classified elsewhere and of unspecified site] Onset: 8 09-26-2017 Episodic Cancer of cervix (20 sources) Malignant tumor of cervix; Translations: [Malignant neoplasm of cervix uteri, unspecified site] Onset: 9 09-26-2017 Chronic Cardiac dysrhythmias (2 sources) Palpitations; Translations: [Palpitations] Onset: 5 Episodic Chronic obstructive pulmonary disease and bronchiectasis (20 sources) Other emphysema; Translations: [Pulmonary emphysema] Onset: 3 Resolved: 4 11-08-2013 Chronic Congestive heart failure; nonhypertensive (2 sources) Chronic diastolic (congestive) heart failure; Translations: [Chronic diastolic (congestive) heart failure] Onset: 5 Chronic Coronary atherosclerosis and other heart disease (2 sources) Unstable angina; Translations: [Unstable angina] Onset: 5 Chronic Delirium, dementia, and amnestic and other cognitive disorders (20 sources) Presenile dementia; 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] Onset: 4 11-02-2023 Chronic Diseases of mouth; excluding dental (20 sources) Lesion of tongue; Translations: [Other diseases of tongue] Onset: 7 06-03-2016 Episodic Disorders of lipid metabolism (20 sources) Hyperlipidemia, unspecified; Translations: [Mixed hyperlipidemia] Onset: 2 04-26-2023 Chronic E Codes: Fall (1 source) Unspecified fall, initial encounter; Translations: [UNSPECIFIED FALL INITIAL ENCOUNTER] Onset: 2 Episodic Esophageal disorders (20 sources) Esophageal reflux; Translations: [Gastroesophageal reflux disease] Onset: 2 01-19-2012 Chronic Essential hypertension (20 sources) Unspecified essential hypertension; Translations: [Essential hypertension] Onset: 2 Resolved: 5 04-20-2015 Chronic Fracture of upper limb (1 source) Ill-defined closed fractures of upper limb Episodic Glaucoma (18 sources) Open angle with borderline findings, high risk, bilateral; Translations: [Open angle with borderline findings, high risk] Onset: 7 01-25-2017 Chronic Headache; including migraine (18 sources) Cluster headache; Translations: [Cluster headache syndrome, unspecified, not intractable] 09-26-2017 Chronic Hypertension with complications and secondary hypertension (2 sources) Hypertensive urgency; Translations: [Hypertensive urgency ] Onset: 4 10-15-2023 Chronic Malaise and fatigue (20 sources) Other malaise and fatigue; Translations: [Weakness] Onset: 8 09-26-2017 Episodic Malignant neoplasm without specification of site (18 sources) Malignant neoplastic disease; Translations: [Malignant (primary) neoplasm, unspecified] 09-26-2017 Chronic Mood disorders (20 sources) Depressive disorder; Translations: [Bipolar disorder, unspecified] Onset: 4 11-08-2013 Chronic Nausea and vomiting (19 sources) Nausea; Translations: [Nausea] Onset: 4 09-26-2017 Episodic Nephritis; nephrosis; renal sclerosis (20 sources) Glomerular disorders in diseases classified elsewhere; Translations: [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] Onset: 4 11-07-2023 Chronic Nonspecific chest pain (20 sources) Chest pain, unspecified; Translations: [Chest pain on exertion] Onset: 7 Resolved: 1 11-18-2016 Episodic Nutritional deficiencies (1 source) Vitamin D deficiency; Translations: [Vitamin D deficiency, unspecified] 01-15-2024 Chronic Osteoarthritis (20 sources) Osteoarthrosis, unspecified whether generalized or localized, site unspecified; Translations: [Osteoarthritis] Onset: 2 01-19-2012 Chronic Osteoporosis (18 sources) Osteoporosis; Translations: [Age-related osteoporosis without current pathological fracture] 09-26-2017 Chronic Other aftercare (2 sources) Other assisted (current) drug therapy; Translations: [OTH [facility] CURRENT DRUG THERAPY] Onset: 2 Episodic Other aftercare (1 source) [facility] (current) use of systemic steroids; Translations: [[facility] (current) use of systemic steroids] Onset: 4 Episodic Other circulatory disease (1 source) 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; Translations: [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 ([facility])] 01-15-2024 Chronic Other circulatory disease (1 source) Personal history of transient ischemic attack (TIA), and cerebral infarction without residual deficits; Translations: [PERS HX TIA AND CI NO RESID DEFICIT] Onset: 2 Episodic Other connective tissue disease (2 sources) Muscle weakness (generalized) Onset: 8 Episodic Other connective tissue disease (1 source) Myalgia and myositis, unspecified Episodic Other connective tissue disease (20 sources) Fibromyalgia; Translations: [Fibromyalgia] Onset: 4 11-08-2013 Episodic Other connective tissue disease (4 sources) Pain in right foot; Translations: [PAIN IN RIGHT FOOT] Onset: 2 Episodic Other connective tissue disease (20 sources) Primary fibromyalgia syndrome; Translations: [Fibromyalgia] Onset: 4 04-26-2023 Episodic Other connective tissue disease (18 sources) Increased muscle tone; Translations: [Other specified disorders of muscle] 09-26-2017 Episodic Other gastrointestinal disorders (18 sources) Heartburn; Translations: [Heartburn] 09-26-2017 Episodic Other hereditary and degenerative nervous system conditions (1 source) Restless legs; Translations: [Restless leg] Chronic Other hereditary and degenerative nervous system conditions (1 source) Restless legs syndrome (RLS) Chronic Other hereditary and degenerative nervous system conditions (1 source) Restless legs syndrome; Translations: [Restless legs syndrome] Onset: 9 Chronic Other lower respiratory disease (18 sources) Dyspnea; Translations: [Shortness of breath] 09-26-2017 Episodic Other lower respiratory disease (2 sources) Other forms of dyspnea; Translations: [Other forms of dyspnea] Onset: 5 Episodic Other nervous system disorders (1 source) [...] Onset: 2 Episodic Other non-traumatic joint disorders (18 sources) Swollen ankle region; Translations: [Effusion, right ankle] 09-26-2017 Episodic Other non-traumatic joint disorders (18 sources) Joint pain; Translations: [Pain in unspecified joint] 09-26-2017 Episodic Other nutritional; endocrine; and metabolic disorders (6 sources) Body Mass Index 50.0-59.9, adult Onset: 8 Chronic Other nutritional; endocrine; and metabolic disorders (3 sources) Body mass index 40+ - severely obese; Translations: [Morbid obesity with BMI of 50.0-59.9, adult] Onset: 4 11-08-2013 Chronic Other nutritional; endocrine; and metabolic disorders (3 sources) Morbid (severe) obesity due to excess calories; Translations: [MORBID SEVERE OBES D/T EXCESS LUMA] Onset: 2 Chronic Other nutritional; endocrine; and metabolic disorders (3 sources) Body mass index (BMI) 60.0-69.9, adult; Translations: [BODY MASS INDEX BMI 60.0-69.9 ADULT] Onset: 2 Chronic Other nutritional; endocrine; and metabolic disorders (1 source) Body mass index (BMI) 50.0-59.9, adult; Translations: [BODY MASS INDEX BMI 50.0-59.9 ADULT] Onset: 2 Chronic Other nutritional; endocrine; and metabolic disorders (20 sources) Severe obesity; Translations: [Class 3 severe obesity due to excess calories without serious comorbidity in adult] Onset: 4 11-02-2023 Chronic Other nutritional; endocrine; and metabolic disorders (18 sources) Obesity caused by energy imbalance; Translations: [Morbid (severe) obesity due to excess calories] Onset: 4 12-23-2016 Chronic Other nutritional; endocrine; and metabolic disorders (18 sources) Morbid obesity; Translations: [Morbid (severe) obesity due to excess calories] 09-26-2017 Chronic Other nutritional; endocrine; and metabolic disorders (1 source) Hypomagnesemia; Translations: [Hypomagnesemia] 01-15-2024 Chronic Other screening for suspected conditions (not mental disorders or infectious disease) (20 sources) Screening for diabetes mellitus; Translations: [Special screening for malignant neoplasms of colon] Onset: 7 Resolved: 1 10-15-2023 Episodic Other upper respiratory disease (6 sources) Chronic rhinitis; Translations: [Chronic rhinitis] Onset: 4 04-26-2023 Chronic Peripheral and visceral atherosclerosis (20 sources) Peripheral vascular disease, unspecified; Translations: [Peripheral vascular disease, unspecified] Onset: 7 Resolved: 1 10-15-2023 Chronic Residual codes; unclassified (1 source) Unspecified sleep apnea Onset: 8 Chronic Residual codes; unclassified (20 sources) Obstructive sleep apnea syndrome; Translations: [Obstructive sleep apnea (adult) (pediatric)] Onset: 1 04-26-2023 Chronic Residual codes; unclassified (2 sources) Hallucinations Onset: 8 Episodic Spondylosis; intervertebral disc disorders; other back problems (2 sources) Degeneration of lumbar or lumbosacral intervertebral disc Onset: 8 Chronic Spondylosis; intervertebral disc disorders; other back problems (20 sources) Chronic low back pain; Translations: [Chronic neck pain] 09-26-2017 Episodic Substance-related disorders (20 sources) Smoker; Translations: [Nicotine dependence, cigarettes, uncomplicated] [...] te Episodic/Chronic Acute and unspecified renal failure (20 sources) Acute kidney failure, unspecified; Translations: [Acute renal failure syndrome] Onset: 4 11-02-2023 Episodic Administrative/social admission (1 source) Other reasons for seeking consultation Onset: 8 Episodic Blindness and vision defects (20 sources) Hypermetropia; Translations: [Hypermetropia, unspecified eye] Onset: 7 12-15-2016 Episodic Deficiency and other anemia (19 sources) Iron deficiency anemia; Translations: [Iron deficiency anemia, unspecified] Onset: 4 10-16-2023 Episodic Deficiency and other anemia (19 sources) Iron deficiency anemia secondary to inadequate dietary iron intake; Translations: [Other iron deficiency anemias] Onset: 4 10-17-2023 Episodic Diabetes mellitus without complication (20 sources) Abnormal glucose level; Translations: [Impaired fasting glucose] Onset: 1 10-16-2023 Episodic Fluid and electrolyte disorders (20 sources) Hypokalemia; Translations: [Hypokalemia] Onset: 4 10-15-2023 Episodic Gastrointestinal hemorrhage (4 sources) Hemorrhage of anus and rectum; Translations: [Gastrointestinal hemorrhage, unspecified] Onset: 2 Episodic Genitourinary symptoms and ill-defined conditions (1 source) Nephrotic range proteinuria; Translations: [Proteinuria, unspecified] 01-15-2024 Episodic Joint disorders and dislocations; trauma-related (18 sources) Tear of articular cartilage of right knee, current, initial encounter; Translations: [Other tear of cartilage or meniscus of knee, current] Onset: 4 10-16-2023 Episodic Mood disorders (17 sources) Mood disorders Onset: 4 10-19-2023 Noninfectious gastroenteritis (1 source) Noninfective gastroenteritis and colitis, unspecified; Translations: [NONINFECTIVE GE AND COLITIS UNS] Onset: 2 Episodic Nutritional deficiencies (19 sources) Cobalamin deficiency; Translations: [Deficiency of other specified B group vitamins] Onset: 4 10-17-2023 Episodic Other bone disease and musculoskeletal deformities (1 source) Tietze's disease Onset: 8 Episodic Other bone disease and musculoskeletal deformities (1 source) Other disorders of bone and cartilage Onset: 8 Episodic Other connective tissue disease (2 sources) Fibromyositis; Translations: [Fibromyalgia] Onset: 9 Episodic Other connective tissue disease (1 source) Leg swelling symptom Onset: 4 Episodic Other ear and sense organ disorders (18 sources) Tinnitus of right ear; Translations: [Tinnitus, right ear] Onset: 7 01-22-2019 Episodic Other lower respiratory disease (2 sources) Shortness of breath; Translations: [Shortness of breath] Onset: 9 Episodic Other lower respiratory disease (1 source) Cough Onset: 4 Episodic Other lower respiratory disease (1 source) Shortness of breath; Translations: [Shortness of breath] Onset: 5 Episodic Other nervous system disorders (3 sources) Meralgia paresthetica of right leg; Translations: [Meralgia paresthetica of right side] Onset: 4 Resolved: 8 03-27-2018 Other non-traumatic joint disorders (3 sources) Pain in joint, lower leg Onset: 8 Episodic Other non-traumatic joint disorders (1 source) Pain in joint, pelvic region and thigh Onset: 8 Episodic Other non-traumatic joint disorders (18 sources) Pain in right knee; Translations: [Pain in joint, lower leg] Onset: 4 10-16-2023 Episodic Other nutritional; endocrine; and metabolic disorders (3 sources) Obesity; Translations: [Obesity] Onset: 2 Resolved: 4 11-08-2013 Chronic Other upper respiratory disease (18 sources) Henry's edema; 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] Onset: 7 06-07-2016 Episodic Other upper respiratory disease (18 sources) Dysphonia; Translations: [Dysphonia] Onset: 7 06-07-2016 Episodic Other upper respiratory disease (18 sources) Deviated nasal septum; Translations: [Deviated nasal septum] Onset: 7 06-07-2016 Episodic Otitis media and related conditions (20 sources) Acute suppurative otitis media without spontaneous rupture of ear drum; Translations: [Acute suppurative otitis media without spontaneous rupture of ear drum, bilateral] Onset: 4 04-26-2023 Episodic Pneumonia (except that caused by tuberculosis or sexually transmitted disease) (18 sources) Infective pneumonia; Translations: [Pneumonia, unspecified organism] Onset: 8 07-14-2017 Episodic Residual codes; unclassified (1 source) Family history of other neurological diseases Onset: 8 Episodic Residual codes; unclassified (1 source) Edema Onset: 8 Episodic Residual codes; unclassified (1 source) Memory loss Onset: 8 Episodic Residual codes; unclassified (20 sources) Memory impairment; Translations: [Other amnesia] Onset: 8 02-13-2018 Episodic Residual codes; unclassified (19 sources) Bilateral lower limb edema; Translations: [Localized edema] Onset: 4 10-15-2023 Episodic Respiratory failure; insufficiency; arrest (adult) (18 sources) Acute hypoxemic and hypercapnic respiratory failure; Translations: [Acute respiratory failure with hypoxia] Onset: 9 02-03-2019 Episodic Skin and subcutaneous tissue infections (18 sources) Cellulitis of left hand; Translations: [Cellulitis of left upper limb] Onset: 6 11-16-2015 Episodic Unclassified (1 source) Antineutrophilic cytoplasmic antibody (ANCA) vasculitis; 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 female With morbid obesity, Hypertension, HFpEF, COPD. Seen in cardiology clinic with worsening exertional shortness of breath. Lexiscan test done showed anterior, septal and lateral ischemia. Echocardiogram done showed 60-65% in September 2023 Past Medical History Medical History[1] Surgical History Surgical History[2] Social History Social History Socioeconomic History Marital status: Single Spouse name: Not on file Number of children: Not on file Years of education: Not on file Highest education level: Not on file Occupational History Not on file Tobacco Use Smoking status: Every Day Current packs/day: 0.50 Types: Cigarettes Passive exposure: Current Smokeless tobacco: Never Vaping Use Vaping status: Never Used Substance and Sexual Activity Alcohol use: Never Drug use: Never Sexual activity: Defer Other Topics Concern Not on file Social History Narrative Not on file Social Drivers of Health Financial Resource Strain: Low Risk (02/05/2024) Received from [facility] Overall Financial Resource Strain (CARDIA) Difficulty of Paying Living Expenses: Not very hard Food Insecurity: No Food Insecurity (02/05/2024) Received from [facility] Hunger Vital Sign Worried About Running Out of Food in the Last Year: Never true Ran Out of Food in the Last Year: Never true Transportation Needs: Unmet Transportation Needs (02/05/2024) Received from [facility] PRAPARE - Transportation Lack of Transportation (Medical): Yes Lack of Transportation (Non-Medical): No Physical Activity: Not on file Stress: Not on file Social Connections: Socially Isolated (02/05/2024) Received from [facility] Social Connection and Isolation Panel [NHANES] Frequency of Communication with Friends and Family: Twice a week Frequency of Social Gatherings with Friends and Family: Never Attends Jewish Services: Never Active Member of Clubs or Organizations: No Attends Club or Organization Meetings: Never Marital Status: Intimate Partner Violence: Not At Risk (05/23/2024) Humiliation, Afraid, Rape, and Kick questionnaire Fear of Current or Ex-Partner: No Emotionally Abused: No Physically Abused: No Sexually Abused: No Housing Stability: Unknown (02/05/2024) Received from [facility] Housing Stability Vital Sign Unable to Pay for Housing in the Last Year: No Number of Times Moved in the Last Year: Not on file Homeless in the Last Year: No Family History Family History[3] Allergies Allergies[4] Medications Prescriptions Prior to Admission[5] Review of Systems Constitutional: Negative for chills and fever. Respiratory: Positive for chest tightness and shortness of breath. Gastrointestinal: Negative for abdominal pain, nausea and vomiting. Genitourinary: Negative for difficulty urinating and dysuria. Neurological: Negative for dizziness and light-headedness. Last Recorded Vitals Visit Vitals BP (!) 128/92 Pulse 60 Resp 18 SpO2 99% Smoking Status Every Day Physical Exam Constitutional: General: She is not in acute distress. Appearance: Normal appearance. She is obese. HENT: Right Ear: External ear normal. Left Ear: External ear normal. Nose: Nose normal. Eyes: Extraocular Movements: Extraocular movements intact. Cardiovascular: Rate and Rhythm: Normal rate and regular rhythm. Heart sounds: Normal heart sounds. Pulmonary: Breath sounds: Normal breath sounds. No wheezing or rales. Abdominal: General: There is no distension. Palpations: Abdomen is soft. Tenderness: There is no abdominal tenderness. Musculoskeletal: Right lower leg: Edema present. Left lower leg: Edema present. Neurological: Mental Status: She is alert and oriented to person, place, and time. Psychiatric: Mood and Affect: Mood normal. Behavior: Behavior normal. Relevant Lab Results No results found for: NA , K , CL , CO2 , BUN , CREATININE , GLUCOSE , CALCIUM , ANIONGAP , EGFR , BCR Relevant Imaging Results No image results found. Assessment & Plan Abnormal cardiovascular stress test No associated orders from this encounter found during lookback period of 72 hours. Abnormal findings on diagnostic imaging of heart and coronary circulation No associated orders from this encounter found during lookback period of 72 hours. Active Problems: Abnormal cardiovascular stress test Abnormal findings on diagnostic imaging of heart and coronary circulation Will proceed with coronary angiography and right heart catheterization for further evaluation. Consent for blood products obtained. Risks, benefits, and alternatives to procedure discussed with patient in detail who expressed understanding and agreed to proceed. Abram Man PGY-4 [employer]aire[employer] [facility] [1] Past Medical History: Diagnosis Date Abn (more content not included)... Normal [facility] NURSNOTEon 12-06-2024 NURSNOTE RN educated pt on d/c instructions. This included: site care, limited physical activity, resume normal diet, future appointments, medications, and moderate sedation instructions. RN educated pt on when to notify physician and when to go to the hospital. RN educated pt on importance of not overusing stairs at this time and limited weight bearing of 5lbs. RN encouraged pt to voice any questions or concerns, and answered any questions or concerns if pt verbalized. Normal [facility] 36on 11-19-2024 36 Regarding stress test result from 10/21/2024: Mehrdad Mccormick MD to Me EE 11/11/24 12:57 PM Please let her know her stress test is abnormal and I would recommend a cath; R/CORS via R internal jugular and L radial Since I am off for a while, this can be done with Eduardo if she wishes not to wait Thanks Spoke with patient and informed her of abnormal stress test and need for heart cath per Dr. Mccormick. She is ok with either him or Dr. Saunders performing it. Order entered for Dr. Saunders to do it. Lab orders entered and faxed to [facility]. Patient verbalized understanding. [facility] Telephoneon 11-19-2024 Telephone [id number] DovDanielle Bar 1965 F Date Provider Department Center 11/19/2024 CLARK HOFF [facility] Family History Problem Relation Age of Onset Coronary artery disease Father Family Status - Relation Status Age at Mother Father [facility] Orders Onlyon 11-11-2024 Orders Only [id number] Danielle Montana Yosvany 1965 F Date Provider Department Center 11/11/2024 [id number], HISTORICAL CARD [facility] Family History Problem Relation Age of Onset Coronary artery disease Father Family Status - Relation Status Age at Mother Father [facility] Office Visiton 10-08-2024 Follow-up visit [id number] Danielle Montana Yosvany 1965 Date Provider Department Center 10/08/2024 Filiberto-MEHRDAD MCCORMICK Family History Problem Relation Age of Onset Coronary artery disease Father Family Status - Relation Status Age at Mother Father Level of Service:40721 [place] OFFICE/OUTPATIENT ESTABLISHED MOD MDM 30 MIN [facility] 36on 06-11-2024 36 [employer] is asking you amend your last office visit on 05/20/2024 and document the need for a BP cuff for this patient. Can you do that quick and let me know when it's done? Thank you so much!! :) [facility] Orders Onlyon 06-10-2024 Orders Only [id number] Danielle Montana Yosvany 1965 F Date Provider Department Center 06/10/2024 895-KEITH NUGENT CARD [facility] Family History Problem Relation Age of Onset Coronary artery disease Father Family Status - Relation Status Age at Father Normal [facility] Telephoneon 05-29-2024 Telephone [id number] Danielle Montana 1965 F Date Provider Department Center 05/29/2024 Filiberto-MEHRDAD MCCORMICK [facility] Family History Problem Relation Age of Onset Coronary artery disease Father Family Status - Relation Status Age at Father Normal [facility] Infusionon 05-23-2024 Infusion [id number] Danielle Montana 1965 F Date Provider Department Center 05/23/2024 [id number] CHAIR 9 DCC INF DCC Family History Problem Relation Age of Onset Coronary artery disease Father Family Status - Relation Status Age at Father Normal [facility] Office Visiton 05-20-2024 Follow-up visit [id number] Danielle Montana 1965 F Date Provider Department Center 05/20/2024 Filiberto-MEHRDAD MCCORMICK [facility] Family History Problem Relation Age of Onset Coronary artery disease Father Family Status - Relation Status Age at Father Level of Service:90704 [place] OFFICE/OUTPATIENT ESTABLISHED MOD MDM 30 MIN [facility] 36on 03-07-2024 36 Called patient to reschedule their appointment scheduled for 03/[address] Daniels Result: left voicemail to reschedule [facility] BASIC METABOLIC PANLon 01-21 Anion gap [Moles/Vol] 9 mmol/L Normal 5-15 [facility] Comment on above: Performed By: #### C BCA, CMP, 46815-1 #### [facility] ([id number]) [address] [place] [address] 39471 Calcium [Mass/Vol] 9.5 mg/dL Normal 8.5-10.5 [facility] Comment on above: Performed By: #### C BCA, CMP, 53427-9 #### [facility] ([id number]) [address] [place] [address] 66580 Chloride [Moles/Vol] 101 mmol/L Normal 98-109 [facility] Comment on above: Performed By: #### C BCA, CMP, #### [facility] ([id number]) [address] [place] [address] 03787 CO2 [Moles/Vol] 31 mmol/L Normal 22-32 [facility] Comment on above: Performed By: #### C EDEL POOLE, 16633-9 #### [facility] ([id number]) [address] [place] [address] 98725 Creatinine [Mass/Vol] 1.63 mg/dL High 0.40-1.00 [facility] Comment on above: Result Comment: METH OD TRACEABLE TO IDMS STANDARD Performed By: #### C VIRGILIO [facility], #### [facility] ([id number]) [address] [place] [address] 10743 GFR/1.73 sq M.predicted among non-blacks MDRD (S/P/Bld) [Vol rate/Area] 36 mL/min/{1.73_m2} Low >59 [facility] Comment on above: Result Comment: Reported eGFR is based on the CKD-EPI 2020 equation that does not use a race coefficient. Performed By: #### C VIRGILIO [facility], 66654-8 #### [facility] ([id number]) [address] [place] [address] 01777 Glucose [Mass/Vol] 84 mg/dL Normal 65-99 [facility] Comment on above: Performed By: #### C EDEL POOLE, 23609-6 #### [facility] ([id number]) [address] [place] [address] 18206 Potassium [Moles/Vol] 4.3 mmol/L Normal 3.5-5.0 [facility] Comment on above: Performed By: #### C EDEL POOLE, 69062-8 #### [facility] ([id number]) [address] [place] [address] 09515 Sodium [Moles/Vol] 141 mmol/L Normal 134-146 [facility] Comment on above: Performed By: #### C BCA, CMP, 63542-0 #### [facility] ([id number]) [address] [place] [address] 33803 Urea nitrogen [Mass/Vol] 34 mg/dL High 5-23 [facility] Comment on above: Performed By: #### C BCA, CMP, 28877-0 #### [facility] ([id number]) [address] [place] [address] 85883 BASIC METABOLIC PANLon 01-11 Anion gap [Moles/Vol] 12 mmol/L Normal 5-15 [facility] Comment on above: Performed By: #### 8 9579-7 #### [facility] ([id number]) [address] [place] [address] 23236 Calcium [Mass/Vol] 9.4 mg/dL Normal 8.5-10.5 [facility] Comment on above: Performed By: #### 8 9579-7 #### [facility] ([id number]) [address] [place] [address] 31702 Chloride [Moles/Vol] 104 mmol/L Normal 98-109 [facility] Comment on above: Performed By: #### 8 9579-7 #### [facility] ([id number]) [address] [place] [address] 36981 CO2 [Moles/Vol] 28 mmol/L Normal 22-32 [facility] Comment on above: Performed By: #### 8 9579-7 #### [facility] ([id number]) [address] [place] [address] 54432 Creatinine [Mass/Vol] 1.22 mg/dL High 0.40-1.00 [facility] Comment on above: Result Comment: METH OD TRACEABLE TO IDMS STANDARD Performed By: #### 8 9579-7 #### [facility] ([id number]) [address] [place] [address] 18747 GFR/1.73 sq M.predicted among non-blacks MDRD (S/P/Bld) [Vol rate/Area] 51 mL/min/{1.73_m2} Low >59 [facility] Comment on above: Result Comment: Reported eGFR is based on the CKD-EPI 2020 equation that does not use a race coefficient. Performed By: #### 8 9579-7 #### [facility] ([id number]) [address] [place] [address] 91368 Glucose [Mass/Vol] 100 mg/dL High 65-99 [facility] Comment on above: Performed By: #### 8 9579-7 #### [facility] ([id number]) [address] [place] [address] 38399 Potassium [Moles/Vol] 3.8 mmol/L Normal 3.5-5.0 [facility] Comment on above: Performed By: #### 8 9579-7 #### [facility] ([id number]) [address] [place] [address] 93722 Sodium [Moles/Vol] 144 mmol/L Normal 134-146 [facility] Comment on above: Performed By: #### 8 9579-7 #### [facility] ([id number]) [address] [place] [address] 13047 Urea nitrogen [Mass/Vol] 17 mg/dL Normal 5-23 [facility] Comment on above: Performed By: #### 8 9579-7 #### [facility] ([id number]) [address] [place] [address] 01148 COMPLETE BLOOD COUNTon 01-11 Erythrocyte distribution width (RBC) [Ratio] 16.7 % High 11.5-15.0 [facility] Comment on above: Performed By: #### 8 9579-7 #### [facility] ([id number]) [address] [place] [address] 60215 Hematocrit (Bld) [Volume fraction] 33.6 % Low 35-47 [facility] Comment on above: Performed By: #### 8 9579-7 #### [facility] ([id number]) [address] [place] [address] 76495 Hemoglobin (Bld) [Mass/Vol] 11.2 g/dL Low 11.7-15.5 [facility] Comment on above: Performed By: #### 8 9579-7 #### [facility] ([id number]) [address] [place] [address] 56944 MCH (RBC) [Entitic mass] 28.8 pg Normal 27-34 [facility] Comment on above: Performed By: #### 8 9579-7 #### [facility] ([id number]) [address] [place] [address] 03700 MCHC (RBC) [Mass/Vol] 33.3 g/dL Normal 32-36 [facility] Comment on above: Performed By: #### 8 9579-7 #### [facility] ([id number]) [address] [place] [address] 32315 MCV (RBC) [Entitic vol] 87 fL Normal 80-100 [facility] Comment on above: Performed By: #### 8 9579-7 #### [facility] ([id number]) [address] [place] [address] 98797 Platelet mean volume (Bld) [Entitic vol] 9.7 fL Normal 7-12 [facility] Comment on above: Performed By: #### 8 9579-7 #### [facility] ([id number]) [address] [place] [address] 48513 Platelets (Bld) [#/Vol] 268 10*3/uL Normal 150-450 [facility] Comment on above: Performed By: #### 8 9579-7 #### [facility] ([id number]) [address] [place] [address] 72111 RBC COUNT 3.88 X10E12/L Normal 3.80-5.20 [facility] Comment on above: Performed By: #### 8 9579-7 #### [facility] ([id number]) [address] [place] [address] 11485 WBC (Bld) [#/Vol] 8.8 10*3/uL Normal 4.0-11.0 [facility] Comment on above: Performed By: #### 8 9579-7 #### [facility] ([id number]) [address] [place] [address] 93230 Creatinine (U) [Mass/Vol]on 01-12-2024 URINE CREATININE,RDM 107.95 mg/dL Normal Pr [facility] Comment on above: Performed By: #### Shahla POOLE, [facility], 87176-2 #### [facility] ([id number]) [address] [place] [address] 19925 HBV core Ab IA Qlon 01-12-20 ANTI HBc Negative Normal NEG [facility] Comment on above: Performed By: #### Shahla POOLE, CMP, 38353-0 #### [facility] ([id number]) [address] [place] [address] 49436 HBV surface Ab IA Qnon 01-11 Anti HBs quant. <8.00 Normal [facility] Comment on above: Result Comment: Vacc inated: >=12mIU/mL, Positive (Immune) Unvaccinated: <8mIU/mL, Negative (Not Immune) 8-11.99 mIU/mL: Indeterminate, (Considered Not Immune) Performed By: #### C VIRGILIO, CMP, #### [facility] ([id number]) [address] [place] [address] 57293 HBV surface Ag IA Qlon 01-11 HEPATITIS B SURF AG Negative Normal NEG [facility] Comment on above: Performed By: #### C EDEL POOLE, #### [facility] ([id number]) [address] [place] [address] 87930 MAGNESIUMon 01-12-2024 Magnesium [Mass/Vol] 1.6 mg/dL Low 1.8-2.6 [facility] Comment on above: Performed By: #### 8 9579-7 #### [facility] ([id number]) [address] [place] [address] 43412 PHOSPHORUSon 01-12-2024 Phosphate [Mass/Vol] 3.6 mg/dL Normal 2.4-4.9 [facility] Comment on above: Performed By: #### 8 9579-7 #### [facility] ([id number]) [address] [place] [address] 56907 PROTEIN CREAT RATIOon 2023 RANDOM URINE PROTEIN 4520 mg/L High <120 [facility] Comment on above: Performed By: #### C EDEL POOLE, #### [facility] ([id number]) [address] [place] [address] 72213 U/PRO/HORSE IDENTIFIER RATIO CALC 4.15 High <0.2 [facility] Comment on above: Result Comment: Neph rotic Syndrome is associated with ratios >3.5 Performed By: #### C EDEL POOLE, #### [facility] ([id number]) [address] [place] [address] 91199 URINE CREATININE,RDM 108.96 mg/dL Normal Pr [facility] Comment on above: Performed By: #### C EDEL POOLE, #### [facility] ([id number]) [address] [place] [address] 95175 Parathyrin.intact [Mass/Vol] on 01-12-2024 PTH INTACT 69 pg/mL Normal 12-88 [facility] Comment on above: Performed By: #### Shahla POOLE CMP, 87657-5 #### [facility] ([id number]) [address] [place] [address] 42954 Protein (U) [Mass/Vol]on RANDOM URINE PROTEIN 4560 mg/L High <120 [facility] Comment on above: Performed By: #### Shahla POOLE, CMP, #### [facility] ([id number]) [address] [place] [address] 51981 URINALYSISon 01-12-2024 Bilirubin Ql (U) Negative Normal NEG [facility] Comment on above: Performed By: #### Shahla POOLE CMP, #### [facility] ([id number]) [address] [place] [address], [place] [address] BLOOD/HGB Small Abnormal NEG [facility] Comment on above: Performed By: #### Shahla POOLE, CMP, 63980-8 #### [facility] ([id number]) [address] [place] [address], [place] [address] Color (U) YELLOW Normal YELLOW [facility] Comment on above: Performed By: #### Shahla POOLE, CMP, #### [facility] ([id number]) [address] [place] [address] [place] [address] Glucose Ql (U) Negative Normal NEG [facility] Comment on above: Performed By: #### C VIRGILIO, CMP, #### [facility] ([id number]) [address] [place] [address], [place] [address] Hyaline casts LM Ql (Urine sed) 1 /lpf Normal 0-2 [facility] Comment on above: Performed By: #### Shahla BCA, CMP, 24027-4 #### [facility] ([id number]) [address] [place] [address] 08402 Ketones Ql (U) Negative Normal NEG [facility] Comment on above: Performed By: #### C BCA, CMP, 20763-8 #### [facility] ([id number]) [address] [place] [address] 22436 Leukocyte esterase Test strip Ql (U) Negative Normal NEG [facility] Comment on above: Performed By: #### C BCA, CMP, 41946-3 #### [facility] ([id number]) [address] [place] [address] 38042 MUCOUS PRESENT Abnormal NONE [facility] Comment on above: Performed By: #### C BCA, CMP, 11465-3 #### [facility] ([id number]) [address] [place] [address] 33478 Nitrite Ql (U) Negative Normal NEG [facility] Comment on above: Performed By: #### C BCA, CMP, 49262-9 #### [facility] ([id number]) [address] [place] [address] 13837 pH (U) 6.5 [pH] Normal 5.0-8.5 [facility] Comment on above: Performed By: #### C BCA, CMP, #### [facility] ([id number]) [address] [place] [address] 80288 Protein Ql (U) 300 mg/dL Abnormal NEG [facility] Comment on above: Performed By: #### C BCA, CMP, #### [facility] ([id number]) [address] [place] [address] 75092 R.B.CELLS 0 /hpf Normal 0-5 [facility] Comment on above: Performed By: #### C BCA, CMP, #### [facility] ([id number]) [address] [place] [address] [place] [address] Specific gravity (U) [Rel density] 1.015 Normal 1.003-1.03 5 [facility] Comment on above: Performed By: #### Shahla POOLE [facility], 36270-9 #### [facility] ([id number]) [address] [place] [address] 63843 SQUAMOUS EPITHELIUM 1 /hpf Normal 0-5 [facility] Comment on above: Performed By: #### Shahla POOLE [facility], 76264-1 #### [facility] ([id number]) [address] [place] [address] 08313 TURBIDITY CLEAR Normal CLEAR [facility] Comment on above: Performed By: #### Shahla POOLE [facility], 96690-3 #### [facility] ([id number]) [address] [place] [address] 84676 Urobilinogen (U) [Mass/Vol] mg/dL Normal <1.1 [facility] Comment on above: Performed By: #### Shahla POOLE [facility], 69011-3 #### [facility] ([id number]) [address] [place] [address] 20646 W.B.CELLS 2 /hpf Normal 0-5 [facility] Comment on above: Performed By: #### Shahla POOLE [facility], 23732-7 #### [facility] ([id number]) [address] [place] [address] [place] [address] Vitamin D+Metabolites [Mass/ Vol]on 01-12-2024 VITAMIN D 25 HYD TOT 23.5 ng/mL Low 30-100 [facility] Comment on above: Result Comment: Vitamin D status 25 [place] Vitamin D Deficiency <20 ng/mL Insufficiency 20-29 ng/mL Sufficiency 30-100 ng/mL Toxicity >100 ng/mL NOTE: A pediatric reference range has not been established by the supervisor instrument repair of this kit. The [employer] recommends a Vitamin D level of = or >20ng/mL in infants and children. Performed By: #### C EDEL POOLE, #### [facility] ([id number]) [address] [place] [address], [place] [address] COMPLETE BLOOD COUNTon 12-18 Erythrocyte distribution width (RBC) [Ratio] 16.7 % High 11.5-15.0 [facility] [facility] Comment on above: Performed By: #### C EDEL POOLE, , 2776-04, 1987-08 #### [facility] ([id number]) [address], [address] [place] [address] Hematocrit (Bld) [Volume fraction] 30.1 % Low 35-47 [facility] Comment on above: Performed By: #### Shahla POOLE CMP, , 2776-04, 1987-08 #### [facility] ([id number]) [address], [address] [place] [address] Hemoglobin (Bld) [Mass/Vol] 9.6 g/dL Low 11.7-15.5 [facility] Comment on above: Performed By: #### Shahla POOLE CMP, , 2776-04, 1987-08 #### [facility] ([id number]) [address], [address] [place] [address] MCH (RBC) [Entitic mass] 27.3 pg Normal 27-34 [facility] Comment on above: Performed By: #### Shahla POOLE CMP, , 2776-04, 1987-08 #### [facility] ([id number]) [address], [address] [place] [address] MCHC (RBC) [Mass/Vol] 32.0 g/dL Normal 32-36 [facility] Comment on above: Performed By: #### C BCA, CMP, , 2776-04, 1987-08 #### [facility] ([id number]) [address], [address] [place] [address] MCV (RBC) [Entitic vol] 86 fL Normal 80-100 [facility] Comment on above: Performed By: #### Shahla BCA, CMP, , 2776-04, 1987-08 #### [facility] ([id number]) [address], [address] [place] [address] Platelet mean volume (Bld) [Entitic vol] 9.1 fL Normal 7-12 [facility] Comment on above: Performed By: #### Shahla BCA, CMP, , 2776-04, 1987-08 #### [facility] ([id number]) [address], [address] [place] [address] Platelets (Bld) [#/Vol] 361 10*3/uL Normal 150-450 [facility] Comment on above: Performed By: #### Shahla BCA, CMP, , 2776-04, 1987-08 #### [facility] ([id number]) [address], [address] [place] [address] RBC COUNT 3.52 X10E12/L Low 3.80-5.20 [facility] Comment on above: Performed By: #### Shahla BCA, CMP, , 2776-04, 1987-08 #### [facility] ([id number]) [address], [address] [place] [address] WBC (Bld) [#/Vol] 8.2 10*3/uL Normal 4.0-11.0 [facility] Comment on above: Performed By: #### Shahla BCA, CMP, , 2776-04, 1987-08 #### [facility] ([id number]) [address], [address] [place] [address] COMPREHENSIVE METABOLIC PANE Phu 12-19-2023 Albumin [Mass/Vol] 3.4 g/dL Normal 3.2-5.3 [facility] Comment on above: Performed By: #### C BCA, CMP, , 2776-04, 1987-08 #### [facility] ([id number]) [address], [address] [place] [address] ALP [Catalytic activity/Vol] 60 U/L Normal 39-130 [facility] Comment on above: Performed By: #### C BCA, CMP, , 2776-04, 1987-08 #### [facility] ([id number]) [address], [address] [place] [address] ALT [Catalytic activity/Vol] 12 U/L Normal 0-31 [facility] Comment on above: Performed By: #### C BCA, CMP, , 2776-04, 1987-08 #### [facility] ([id number]) [address], [address] [place] [address] Anion gap [Moles/Vol] 9 mmol/L Normal 5-15 [facility] Comment on above: Performed By: #### C BCA, CMP, , 2776-04, 1987-08 #### [facility] ([id number]) [address], [address] [place] [address] AST [Catalytic activity/Vol] 13 U/L Normal 0-41 [facility] Comment on above: Performed By: #### C BCA, CMP, , 2776-04, 1987-08 #### [facility] ([id number]) [address], [address] [place] [address] Bilirubin [Mass/Vol] 0.4 mg/dL Normal 0.3-1.2 [facility] Comment on above: Performed By: #### C BCA, CMP, , 2776-04, 1987-08 #### [facility] ([id number]) [address], [address] [place] [address] Calcium [Mass/Vol] 9.5 mg/dL Normal 8.5-10.5 [facility] Comment on above: Performed By: #### C BCA, CMP, , 2776-04, 1987-08 #### [facility] ([id number]) [address], [address] [place] [address] Chloride [Moles/Vol] 105 mmol/L Normal 98-109 [facility] Comment on above: Performed By: #### C BCA, CMP, , 2776-04, 1987-08 #### [facility] ([id number]) [address], [address] [place] [address] CO2 [Moles/Vol] 28 mmol/L Normal 22-32 [facility] Comment on above: Performed By: #### C BCA, CMP, , 2776-04, 1987-08 #### [facility] ([id number]) [address], [address] [place] [address] Creatinine [Mass/Vol] 1.23 mg/dL High 0.40-1.00 [facility] Comment on above: Result Comment: METH OD TRACEABLE TO IDMS STANDARD Performed By: #### C BCA, CMP, , 2776-04, 1987-08 #### [facility] ([id number]) [address], [address] [place] [address] GFR/1.73 sq M.predicted among non-blacks MDRD (S/P/Bld) [Vol rate/Area] 51 mL/min/{1.73_m2} Low >59 [facility] Comment on above: Result Comment: Reported eGFR is based on the CKD-EPI 2020 equation that does not use a race coefficient. Performed By: #### C BCA, CMP, , 2776-04, 1987-08 #### [facility] ([id number]) [address], [address] [place] [address] Glucose [Mass/Vol] 89 mg/dL Normal 65-99 [facility] Comment on above: Performed By: #### C BCA, CMP, , 2776-04, 1987-08 #### [facility] ([id number]) [address], [address] [place] [address] Potassium [Moles/Vol] 4.9 mmol/L Normal 3.5-5.0 [facility] Comment on above: Performed By: #### C BCA, CMP, , 2776-04, 1987-08 #### [facility] ([id number]) [address], [address] [place] [address] Protein [Mass/Vol] 6.0 g/dL Normal 6.0-8.0 [facility] Comment on above: Performed By: #### C BCA, CMP, , 2776-04, 1987-08 #### [facility] ([id number]) [address], [address] [place] [address] Sodium [Moles/Vol] 142 mmol/L Normal 134-146 [facility] Comment on above: Performed By: #### C BCA, CMP, , 2776-04, 1987-08 #### [facility] ([id number]) [address], [address] [place] [address] Urea nitrogen [Mass/Vol] 21 mg/dL Normal 5-23 [facility] Comment on above: Performed By: #### C BCA, CMP, , 2776-04, 1987-08 #### [facility] ([id number]) [address], [address] [place] [address] CRP [Mass/Vol]on 12-19-2023 C REACTIVE PROTEIN 0.8 mg/dL High 0.000-0.7 4 4 [facility] Comment on above: Performed By: #### C BCA, CMP, , 2776-04, 1987-08 #### [facility] ([id number]) [address], [address] [place] [address] ESR Photometric method (Bld) [Velocity]on 12-19-2023 ESR, ERYTHROCYTE SEDIMENTATION RATE 67 mm/h High 0-30 [facility] Comment on above: Performed By: #### C BCA, CMP, , 2776-04, 1987-08 #### [facility] ([id number]) [address], [address] [place] [address] Follow-Upon 12-19-2023 Follow-Up [id number] Danielle [place] 1965 F Date Provider Department Center 12/19/2023 Florencia-ELIZABETH HI I [facility] RHEUM [facility] No family history on file Level of Service:57935 [place] OFFICE/OUTPATIENT ESTABLISHED LOW MDM 20 MIN (GC) Reason for Visit and Comments: Follow-up [[id number]] Normal [facility] Neutrophil cytoplasmic Ab pa selvin IF (S)on 12-19-2023 c-ANCA Negative Normal Negative [facility] Comment on above: Performed By: #### C BCA, CMP, , 2776-04, 1987-08 #### [facility] ([id number]) [address], [address] [place] [address] p-ANCA Positive Abnormal Negative [facility] Comment on above: Result Comment: NOTE Positive for pANCA pattern by immunofluorescence. Suggest further testing for anti-myeloperoxidase (anti-MPO) antibodies, if clinically indicated. ADDITIONAL INFORMATION This test was developed and its performance characteristics determined by [facility] in a manner consistent with CLIA requirements. This test has not been cleared or approved by the U.S. Food and Drug Administration. Test Performed by: [facility] [address] [id number] [employer] Field Service Technician: Ledy Son Ph.D.; CLIA# [id number] Performed By: #### C BCA, CMP, , 2776-04, 1987-08 #### [facility] ([id number]) [address], [address] [place] [address] CBC AND AUTO DIFFon 11-07-19 24 ABSOLUTE BASOPHIL 0.0 X10E9/L Normal 0.0-0.2 [facility] Comment on above: Performed By: #### C BCA, CMP, , 2776-04, 1987-08 #### [facility] ([id number]) [address], [address] [place] [address] ABSOLUTE NEUTROPHIL 12.2 X10E9/L High 1.5-6.6 [facility] Comment on above: Performed By: #### C BCA, CMP, , 2776-04, 1987-08 #### [facility] ([id number]) [address], [address] [place] [address] Basophils/100 WBC (Bld) 0.2 % Normal [facility] Comment on above: Performed By: #### C BCA, CMP, , 2776-04, 1987-08 #### [facility] ([id number]) [address], [address] [place] [address] Eosinophils (Bld) [#/Vol] 0.0 10*3/uL Normal 0.0-0.4 [facility] Comment on above: Performed By: #### C BCA, CMP, , 2776-04, 1987-08 #### [facility] ([id number]) [address], [address] [place] [address] Eosinophils/100 WBC (Bld) 0.0 % Normal [facility] Comment on above: Performed By: #### C BCA, CMP, , 2776-04, 1987-08 #### [facility] ([id number]) [address], [address] [place] [address] Erythrocyte distribution width (RBC) [Ratio] 15.6 % High 11.5-15.0 [facility] Comment on above: Performed By: #### C VIRGILIO, [facility], , 2776-04, 1987-08 #### [facility] ([id number]) [address], [address] [place] [address] Hematocrit (Bld) [Volume fraction] 32.0 % Low 35-47 [facility] Comment on above: Performed By: #### C VIRGILIO, [facility], , 2776-04, 1987-08 #### [facility] ([id number]) [address], [facility] [address] [place] [address] Hemoglobin (Bld) [Mass/Vol] 10.4 g/dL Low 11.7-15.5 [facility] Comment on above: Performed By: #### C VIRGILIO [facility], , 2776-04, 1987-08 #### [facility] ([id number]) [address], [address] [place] [address] Lymphocytes (Bld) [#/Vol] 0.3 10*3/uL Low 1.0-3.5 [facility] Comment on above: Performed By: #### Shahla POOLE, [facility], , 2776-04, 1987-08 #### [facility] ([id number]) [address], [address] [place] [address] Lymphocytes/100 WBC (Bld) 2.6 % Normal [facility] Comment on above: Performed By: #### Shahla POOLE, CMP, , 2776-04, 1987-08 #### [facility] ([id number]) [address], [address] [place] [address] MCH (RBC) [Entitic mass] 27.6 pg Normal 27-34 [facility] Comment on above: Performed By: #### C BCA, CMP, , 2776-04, 1987-08 #### [facility] ([id number]) [address], [address] [place] [address] MCHC (RBC) [Mass/Vol] 32.4 g/dL Normal 32-36 [facility] Comment on above: Performed By: #### C BCA, CMP, , 2776-04, 1987-08 #### [facility] ([id number]) [address], [address] [place] [address] MCV (RBC) [Entitic vol] 85 fL Normal 80-100 [facility] Comment on above: Performed By: #### Shahla BCA, CMP, , 2776-04, 1987-08 #### [facility] ([id number]) [address], [address] [place] [address] Monocytes (Bld) [#/Vol] 0.2 10*3/uL Normal 0-0.9 [facility] Comment on above: Performed By: #### Shahla BCA, CMP, , 2776-04, 1987-08 #### [facility] ([id number]) [address], [address] [place] [address] Monocytes/100 WBC (Bld) 1.8 % Normal [facility] Comment on above: Performed By: #### C BCA, CMP, , 2776-04, 1987-08 #### [facility] ([id number]) [address], [address] [place] [address] Neutrophils/100 WBC (Bld) 95.4 % Normal [facility] Comment on above: Performed By: #### Shahla BCA, CMP, , 2776-04, 1987-08 #### [facility] ([id number]) [address], [address] [place] [address] Platelet mean volume (Bld) [Entitic vol] 9.1 fL Normal 7-12 [facility] Comment on above: Performed By: #### C BCA, CMP, , 2776-04, 1987-08 #### [facility] ([id number]) [address], [address] [place] [address] Platelets (Bld) [#/Vol] 183 10*3/uL Normal 150-450 [facility] Comment on above: Performed By: #### C BCA, CMP, , 2776-04, 1987-08 #### [facility] ([id number]) [address], [address] [place] [address] RBC COUNT 3.76 X10E12/L Low 3.80-5.20 [facility] Comment on above: Performed By: #### C BCA, CMP, , 2776-04, 1987-08 #### [facility] ([id number]) [address], [address] [place] [address] WBC (Bld) [#/Vol] 12.8 10*3/uL High 4.0-11.0 [facility] Comment on above: Performed By: #### C BCA, CMP, , 2776-04, 1987-08 #### [facility] ([id number]) [address], [address] [place] [address] COMPREHENSIVE METABOLIC PANE Phu 11-07-2023 Albumin [Mass/Vol] 3.5 g/dL Normal 3.2-5.3 [facility] Comment on above: Performed By: #### C BCA, CMP, , 2776-04, 1987-08 #### [facility] ([id number]) [address], [address] [place] [address] ALP [Catalytic activity/Vol] 46 U/L Normal 39-130 [facility] Comment on above: Performed By: #### C BCA, CMP, , 2776-04, 1987-08 #### [facility] ([id number]) [address], [address] [place] [address] ALT [Catalytic activity/Vol] 31 U/L Normal 0-31 [facility] Comment on above: Performed By: #### C BCA, CMP, , 2776-04, 1987-08 #### [facility] ([id number]) [address], [address] [place] [address] Anion gap [Moles/Vol] 9 mmol/L Normal 5-15 [facility] Comment on above: Performed By: #### C BCA, CMP, , 2776-04, 1987-08 #### [facility] ([id number]) [address], [address] [place] [address] AST [Catalytic activity/Vol] 10 U/L Normal 0-41 [facility] Comment on above: Performed By: #### C BCA, CMP, , 2776-04, 1987-08 #### [facility] ([id number]) [address], [address] [place] [address] Bilirubin [Mass/Vol] 0.5 mg/dL Normal 0.3-1.2 [facility] Comment on above: Performed By: #### C BCA, CMP, , 2776-04, 1987-08 #### [facility] ([id number]) [address], [address] [place] [address] Calcium [Mass/Vol] 9.1 mg/dL Normal 8.5-10.5 [facility] Comment on above: Performed By: #### C BCA, CMP, , 2776-04, 1987-08 #### [facility] ([id number]) [address], [address] [place] [address] Chloride [Moles/Vol] 104 mmol/L Normal 98-109 [facility] Comment on above: Performed By: #### C BCA, CMP, , 2776-04, 1987-08 #### [facility] ([id number]) [address], [address] [place] [address] CO2 [Moles/Vol] 26 mmol/L Normal 22-32 [facility] Comment on above: Performed By: #### C BCA, CMP, , 2776-04, 1987-08 #### [facility] ([id number]) [address], [address] [place] [address] Creatinine [Mass/Vol] 1.60 mg/dL High 0.40-1.00 [facility] Comment on above: Result Comment: METH OD TRACEABLE TO IDMS STANDARD Performed By: #### C VIRGILIO, CMP, , 2776-04, 1987-08 #### [facility] ([id number]) [address], [address] [place] [address] GFR/1.73 sq M.predicted among non-blacks MDRD (S/P/Bld) [Vol rate/Area] 37 mL/min/{1.73_m2} Low >59 [facility] Comment on above: Result Comment: Reported eGFR is based on the CKD-EPI 2020 equation that does not use a race coefficient. Performed By: #### C BCA, CMP, , 2776-04, 1987-08 #### [facility] ([id number]) [address], [address] [place] [address] Glucose [Mass/Vol] 119 mg/dL High 65-99 [facility] Comment on above: Performed By: #### C BCA, CMP, , 2776-04, 1987-08 #### [facility] ([id number]) [address], [address] [place] [address] Potassium [Moles/Vol] 5.2 mmol/L High 3.5-5.0 [facility] Comment on above: Performed By: #### C BCA, CMP, , 2776-04, 1987-08 #### [facility] ([id number]) [address], [address] [place] [address] Protein [Mass/Vol] 5.3 g/dL Low 6.0-8.0 [facility] Comment on above: Performed By: #### C BCA, CMP, , 2776-04, 1987-08 #### [facility] ([id number]) [address], [address] [place] [address] Sodium [Moles/Vol] 139 mmol/L Normal 134-146 [facility] Comment on above: Performed By: #### C BCA, CMP, , 2776-04, 1987-08 #### [facility] ([id number]) [address], [address] [place] [address] Urea nitrogen [Mass/Vol] 52 mg/dL High 5-23 [facility] Comment on above: Performed By: #### C BCA, CMP, , 2776-04, 1987-08 #### [facility] ([id number]) [address], [address] [place] [address] M. tuberculosis stim IFN-g p tiffanie (Bld)on 11-07-2023 Mitogen minus Nil Result 0.07 IU/mL Normal [facility] Nil Result 0.01 IU/mL Normal [facility] Comment on above: Result Comment: NOTE Test Performed by: [facility] [address] [place] [address] [employer] Field Service Technician: Ledy Son Ph.D.; CLIA# [id number] QuantiFERON-Tb Gold Plus Result Indeterminate Abnormal Negative [facility] Comment on above: Result Comment: NOTE Indeterminate due to a low interferon-gamma level in the mitogen (positive control) tube. This may occur due to a low lymphocyte count, reduced lymphocyte activity or inability of the patient's lymphocytes to generate interferon-gamma. The reference range for the 'Mitogen minus Nil Result' is >=0.5 IU/mL. TB1 Ag minus Nil Result 0.00 IU/mL Normal [facility] TB2 Ag minus Nil Result 0.00 IU/mL Normal [facility] BASIC METABOLIC PANLon 11-01 Anion gap [Moles/Vol] 9 mmol/L Normal 5-15 [facility] Comment on above: Performed By: #### 8 9579-7 #### [facility] ([id number]) [address] [place] [address] Calcium [Mass/Vol] 8.5 mg/dL Normal 8.5-10.5 [facility] Comment on above: Performed By: #### 8 9579-7 #### [facility] ([id number]) [address] [place] [address] Chloride [Moles/Vol] 108 mmol/L Normal 98-109 [facility] Comment on above: Performed By: #### 8 9579-7 #### [facility] ([id number]) [address] [place] [address] CO2 [Moles/Vol] 24 mmol/L Normal 22-32 [facility] Comment on above: Performed By: #### 8 9579-7 #### [facility] ([id number]) [address] [place] [address] Creatinine [Mass/Vol] 1.59 mg/dL High 0.40-1.00 [facility] Comment on above: Result Comment: METH OD TRACEABLE TO IDMS STANDARD Performed By: #### 8 9579-7 #### [facility] ([id number]) [address] [place] [address] GFR/1.73 sq M.predicted among non-blacks MDRD (S/P/Bld) [Vol rate/Area] 37 mL/min/{1.73_m2} Low >59 [facility] Comment on above: Result Comment: Reported eGFR is based on the CKD-EPI 2020 equation that does not use a race coefficient. Performed By: #### 8 9579-7 #### [facility] ([id number]) [address] [place] [address] Glucose [Mass/Vol] 109 mg/dL High 65-99 [facility] Comment on above: Performed By: #### 8 9579-7 #### [facility] ([id number]) [address] [place] [address] Potassium [Moles/Vol] 3.9 mmol/L Normal 3.5-5.0 [facility] Comment on above: Performed By: #### 8 9579-7 #### [facility] ([id number]) [address] [place] [address] Sodium [Moles/Vol] 141 mmol/L Normal 134-146 [facility] Comment on above: Performed By: #### 8 9579-7 #### [facility] ([id number]) [address] [place] [address] Urea nitrogen [Mass/Vol] 40 mg/dL High 5-23 [facility] Comment on above: Performed By: #### 8 9579-7 #### [facility] ([id number]) [address] [place] [address] CBC AND AUTO DIFFon 10-25-19 24 ABSOLUTE BASOPHIL 0.1 X10E9/L Normal 0.0-0.2 [facility] Comment on above: Performed By: #### C BCA, CMP, 49579-0, 2777-1, 1987- #### [facility] ([id number]) [address] [place] [address] ABSOLUTE NEUTROPHIL 6.5 X10E9/L Normal 1.5-6.6 [facility] Comment on above: Performed By: #### C VIRGILIO, CMP, , 2776-04, 1987-08 #### [facility] ([id number]) [address], [address] [place] [address] Basophils/100 WBC (Bld) 0.6 % Normal [facility] Comment on above: Performed By: #### C BCA, CMP, , 2776-04, 1987-08 #### [facility] ([id number]) [address], [address] [place] [address] Eosinophils (Bld) [#/Vol] 0.0 10*3/uL Normal 0.0-0.4 [facility] Comment on above: Performed By: #### Shahla POOLE, CMP, , 2776-04, 1987-08 #### [facility] ([id number]) [address] [place] [address] Eosinophils/100 WBC (Bld) 0.4 % Normal [facility] Comment on above: Performed By: #### C VIRGILIO, CMP, , 2776-04, 1987-08 #### [facility] ([id number]) [address], [address] [place] [address] Erythrocyte distribution width (RBC) [Ratio] 14.5 % Normal 11.5-15.0 [facility] Comment on above: Performed By: #### C BCA, CMP, , 2776-04, 1987-08 #### [facility] ([id number]) [address], [address] [place] [address] Hematocrit (Bld) [Volume fraction] 30.5 % Low 35-47 [facility] Comment on above: Performed By: #### C BCA, CMP, , 2776-04, 1987-08 #### [facility] ([id number]) [address], [address] [place] [address] Hemoglobin (Bld) [Mass/Vol] 10.5 g/dL Low 11.7-15.5 [facility] Comment on above: Performed By: #### C VIRGILIO CMP, , 2776-04, 1987-08 #### [facility] ([id number]) [address] [place] [address] Lymphocytes (Bld) [#/Vol] 1.4 10*3/uL Normal 1.0-3.5 [facility] Comment on above: Performed By: #### Shahla POOLE CMP, , 2776-04, 1987-08 #### [facility] ([id number]) [address] [place] [address] Lymphocytes/100 WBC (Bld) 16.2 % Normal [facility] Comment on above: Performed By: #### Shahla POOLE, CMP, , 2776-04, 1987-08 #### [facility] ([id number]) [address], [address] [place] [address] MCH (RBC) [Entitic mass] 28.5 pg Normal 27-34 [facility] Comment on above: Performed By: #### Shahla BCA, CMP, , 2776-04, 1987-08 #### [facility] ([id number]) [address], [address] [place] [address] MCHC (RBC) [Mass/Vol] 34.4 g/dL Normal 32-36 [facility] Comment on above: Performed By: #### Shahla BCA, CMP, , 2776-04, 1987-08 #### [facility] ([id number]) [address], [address] [place] [address] MCV (RBC) [Entitic vol] 83 fL Normal 80-100 [facility] Comment on above: Performed By: #### C BCA, CMP, , 2776-04, 1987-08 #### [facility] ([id number]) [address], [address] [place] [address] Monocytes (Bld) [#/Vol] 0.5 10*3/uL Normal 0-0.9 [facility] Comment on above: Performed By: #### Shahla BCA, CMP, , 2776-04, 1987-08 #### [facility] ([id number]) [address], [address] [place] [address] Monocytes/100 WBC (Bld) 5.9 % Normal [facility] Comment on above: Performed By: #### Shahla BCA, CMP, , 2776-04, 1987-08 #### [facility] ([id number]) [address], [address] [place] [address] Neutrophils/100 WBC (Bld) 76.9 % Normal [facility] Comment on above: Performed By: #### Shahla BCA, CMP, , 2776-04, 1987-08 #### [facility] ([id number]) [address], [address] [place] [address] Platelet mean volume (Bld) [Entitic vol] 9.1 fL Normal 7-12 [facility] Comment on above: Performed By: #### Shahla BCA, CMP, , 2776-04, 1987-08 #### [facility] ([id number]) [address], [address] [place] [address] Platelets (Bld) [#/Vol] 248 10*3/uL Normal 150-450 [facility] Comment on above: Performed By: #### Shahla BCA, CMP, , 2776-04, 1987-08 #### [facility] ([id number]) [address], [address] [place] [address] RBC COUNT 3.68 X10E12/L Low 3.80-5.20 [facility] Comment on above: Performed By: #### C BCA, CMP, , 2776-04, 1987-08 #### [facility] ([id number]) [address], [address] [place] [address] RBC morphology finding Nom (Bld) REVIEWED Normal [facility] Comment on above: Performed By: #### C BCA, CMP, , 2776-04, 1987-08 #### [facility] ([id number]) [address], [address] [place] [address] WBC (Bld) [#/Vol] 8.4 10*3/uL Normal 4.0-11.0 [facility] Comment on above: Performed By: #### C BCA, CMP, , 2776-04, 1987-08 #### [facility] ([id number]) [address], [address] [place] [address] COMPREHENSIVE METABOLIC PANE Phu 10-25-2023 Albumin [Mass/Vol] 3.1 g/dL Low 3.2-5.3 [facility] Comment on above: Performed By: #### C BCA, CMP, , 2776-04, 1987-08 #### [facility] ([id number]) [address], [address] [place] [address] ALP [Catalytic activity/Vol] 35 U/L Low 39-130 [facility] Comment on above: Performed By: #### C BCA, CMP, , 2776-04, 1987-08 #### [facility] ([id number]) [address], [address] [place] [address] ALT [Catalytic activity/Vol] 8 U/L Normal 0-31 [facility] Comment on above: Performed By: #### C BCA, CMP, , 2776-04, 1987-08 #### [facility] ([id number]) [address], [address] [place] [address] Anion gap [Moles/Vol] 9 mmol/L Normal 5-15 [facility] Comment on above: Performed By: #### C BCA, CMP, , 2776-04, 1987-08 #### [facility] ([id number]) [address], [address] [place] [address] AST [Catalytic activity/Vol] 10 U/L Normal 0-41 [facility] Comment on above: Performed By: #### C BCA, CMP, , 2776-04, 1987-08 #### [facility] ([id number]) [address], [address] [place] [address] Bilirubin [Mass/Vol] 0.3 mg/dL Normal 0.3-1.2 [facility] Comment on above: Performed By: #### C BCA, CMP, , 2776-04, 1987-08 #### [facility] ([id number]) [address], [address] [place] [address] Calcium [Mass/Vol] 8.6 mg/dL Normal 8.5-10.5 [facility] Comment on above: Performed By: #### Shahla BCA, CMP, , 2776-04, 1987-08 #### [facility] ([id number]) [address], [address] [place] [address] Chloride [Moles/Vol] 106 mmol/L Normal 98-109 [facility] Comment on above: Performed By: #### C BCA, CMP, , 2776-04, 1987-08 #### [facility] ([id number]) [address], [address] [place] [address] CO2 [Moles/Vol] 25 mmol/L Normal 22-32 [facility] Comment on above: Performed By: #### C VIRGILIO CMP, , 2776-04, 1987-08 #### [facility] ([id number]) [address], [address] [place] [address] Creatinine [Mass/Vol] 2.12 mg/dL High 0.40-1.00 [facility] Comment on above: Result Comment: METH OD TRACEABLE TO IDMS STANDARD Performed By: #### C EDEL POOLE, , 2776-04, 1987-08 #### [facility] ([id number]) [address], [address] [place] [address] GFR/1.73 sq M.predicted among non-blacks MDRD (S/P/Bld) [Vol rate/Area] 26 mL/min/{1.73_m2} Low >59 [facility] Comment on above: Result Comment: Reported eGFR is based on the CKD-EPI 2020 equation that does not use a race coefficient. Performed By: #### C VIRGILIO CMP, , 2776-04, 1987-08 #### [facility] ([id number]) [address], [address] [place] [address] Glucose [Mass/Vol] 81 mg/dL Normal 65-99 [facility] Comment on above: Performed By: #### C VIRGILIO CMP, , 2776-04, 1987-08 #### [facility] ([id number]) [address], [address] [place] [address] Potassium [Moles/Vol] 4.1 mmol/L Normal 3.5-5.0 [facility] Comment on above: Performed By: #### C VIRGILIO, CMP, , 2776-04, 1987-08 #### [facility] ([id number]) [address], [address] [place] [address] Protein [Mass/Vol] 4.9 g/dL Low 6.0-8.0 [facility] Comment on above: Performed By: #### C VIRGILIO, CMP, , 2776-04, 1987-08 #### [facility] ([id number]) [address], [address] [place] [address] Sodium [Moles/Vol] 140 mmol/L Normal 134-146 [facility] Comment on above: Performed By: #### C VIRGILIO, CMP, , 2776-04, 1987-08 #### [facility] ([id number]) [address], [address] [place] [address] Urea nitrogen [Mass/Vol] 58 mg/dL High 5-23 [facility] Comment on above: Performed By: #### C BCA, CMP, , 2776-04, 1987-08 #### [facility] ([id number]) [address], [address] [place] [address] Calcium.ionized (Bld) [Mass/ Vol]on 10-25-2023 IONIZED CALCIUM 4.8 mg/dL Normal 4.5-5.3 [facility] Comment on above: Performed By: #### C VIRGILIO, CMP, , 2776-04, 1987-08 #### [facility] ([id number]) [address], [address] [place] [address] MAGNESIUMon 10-25-2023 Magnesium [Mass/Vol] 2.1 mg/dL Normal 1.8-2.6 [facility] Comment on above: Performed By: #### C BCA, CMP, , 2776-04, 1987-08 #### [facility] ([id number]) [address], [address] [place] [address] PHOSPHORUSon 10-25-2023 Phosphate [Mass/Vol] 3.5 mg/dL Normal 2.4-4.9 [facility] Comment on above: Performed By: #### C BCA, CMP, , 2776-04, 1987-08 #### [facility] ([id number]) [address], [address] [place] [address] CBC AND AUTO DIFFon 10-24-19 24 ABSOLUTE BASOPHIL 0.0 X10E9/L Normal 0.0-0.2 [facility] Comment on above: Performed By: #### C BCA, CMP, , 2776-04, 1987-08 #### [facility] ([id number]) [address], [address] [place] [address] ABSOLUTE NEUTROPHIL 7.2 X10E9/L High 1.5-6.6 [facility] Comment on above: Performed By: #### Shahla BCA, CMP, , 2776-04, 1987-08 #### [facility] ([id number]) [address], [address] [place] [address] Basophils/100 WBC (Bld) 0.1 % Normal [facility] Comment on above: Performed By: #### C BCA, CMP, , 2776-04, 1987-08 #### [facility] ([id number]) [address], [address] [place] [address] Eosinophils (Bld) [#/Vol] 0.0 10*3/uL Normal 0.0-0.4 [facility] Comment on above: Performed By: #### C BCA, CMP, , 2776-04, 1987-08 #### [facility] ([id number]) [address], [address] [place] [address] Eosinophils/100 WBC (Bld) 0.2 % Normal [facility] Comment on above: Performed By: #### C BCA, CMP, , 2776-04, 1987-08 #### [facility] ([id number]) [address], [address] [place] [address] Erythrocyte distribution width (RBC) [Ratio] 14.7 % Normal 11.5-15.0 [facility] Comment on above: Performed By: #### Shahla POOLE CMP, , 2776-04, 1987-08 #### [facility] ([id number]) [address], [address] [place] [address] Hematocrit (Bld) [Volume fraction] 31.4 % Low 35-47 [facility] Comment on above: Performed By: #### Shahla POOLE CMP, , 2776-04, 1987-08 #### [facility] ([id number]) [address], [address] [place] [address] Hemoglobin (Bld) [Mass/Vol] 10.5 g/dL Low 11.7-15.5 [facility] Comment on above: Performed By: #### Shahla POOLE CMP, , 2776-04, 1987-08 #### [facility] ([id number]) [address], [address] [place] [address] Lymphocytes (Bld) [#/Vol] 3.1 10*3/uL Normal 1.0-3.5 [facility] Comment on above: Performed By: #### Shahla POOLE CMP, , 2776-04, 1987-08 #### [facility] ([id number]) [address], [address] [place] [address] Lymphocytes/100 WBC (Bld) 27.5 % Normal [facility] Comment on above: Performed By: #### Shahla POOLE CMP, , 2776-04, 1987-08 #### [facility] ([id number]) [address], [address] [place] [address] MCH (RBC) [Entitic mass] 28.1 pg Normal 27-34 [facility] Comment on above: Performed By: #### Shahla POOLE CMP, , 2776-04, 1987-08 #### [facility] ([id number]) [address], [address] [place] [address] MCHC (RBC) [Mass/Vol] 33.3 g/dL Normal 32-36 [facility] Comment on above: Performed By: #### C BCA, CMP, , 2776-04, 1987-08 #### [facility] ([id number]) [address], [address] [place] [address] MCV (RBC) [Entitic vol] 84 fL Normal 80-100 [facility] Comment on above: Performed By: #### C BCA, CMP, , 2776-04, 1987-08 #### [facility] ([id number]) [address], [address] [place] [address] Monocytes (Bld) [#/Vol] 0.8 10*3/uL Normal 0-0.9 [facility] Comment on above: Performed By: #### C BCA, CMP, , 2776-04, 1987-08 #### [facility] ([id number]) [address], [address] [place] [address] Monocytes/100 WBC (Bld) 7.6 % Normal [facility] Comment on above: Performed By: #### Shahla BCA, CMP, , 2776-04, 1987-08 #### [facility] ([id number]) [address], [address] [place] [address] Neutrophils/100 WBC (Bld) 64.6 % Normal [facility] Comment on above: Performed By: #### C BCA, CMP, , 2776-04, 1987-08 #### [facility] ([id number]) [address], [address] [place] [address] Platelet mean volume (Bld) [Entitic vol] 9.6 fL Normal 7-12 [facility] Comment on above: Performed By: #### C BCA, CMP, , 2776-04, 1987-08 #### [facility] ([id number]) [address], [address] [place] [address] Platelets (Bld) [#/Vol] 304 10*3/uL Normal 150-450 [facility] Comment on above: Performed By: #### C BCA, CMP, , 2776-04, 1987-08 #### [facility] ([id number]) [address], [address] [place] [address] RBC COUNT 3.73 X10E12/L Low 3.80-5.20 [facility] Comment on above: Performed By: #### C BCA, CMP, , 2776-04, 1987-08 #### [facility] ([id number]) [address], [address] [place] [address] WBC (Bld) [#/Vol] 11.2 10*3/uL High 4.0-11.0 [facility] Comment on above: Performed By: #### C BCA, CMP, , 2776-04, 1987-08 #### [facility] ([id number]) [address], [address] [place] [address] COMPREHENSIVE METABOLIC PANE Phu 10-24-2023 Albumin [Mass/Vol] 3.2 g/dL Normal 3.2-5.3 [facility] Comment on above: Performed By: #### C BCA, CMP, , 2776-04, 1987-08 #### [facility] ([id number]) [address], [address] [place] [address] ALP [Catalytic activity/Vol] 37 U/L Low 39-130 [facility] Comment on above: Performed By: #### C BCA, CMP, , 2776-04, 1987-08 #### [facility] ([id number]) [address], [address] [place] [address] ALT [Catalytic activity/Vol] 8 U/L Normal 0-31 [facility] Comment on above: Performed By: #### C BCA, CMP, , 2776-04, 1987-08 #### [facility] ([id number]) [address], [address] [place] [address] Anion gap [Moles/Vol] 11 mmol/L Normal 5-15 [facility] Comment on above: Performed By: #### C BCA, CMP, , 2776-04, 1987-08 #### [facility] ([id number]) [address], [address] [place] [address] AST [Catalytic activity/Vol] 9 U/L Normal 0-41 [facility] Comment on above: Performed By: #### C BCA, CMP, , 2776-04, 1987-08 #### [facility] ([id number]) [address], [address] [place] [address] Bilirubin [Mass/Vol] 0.3 mg/dL Normal 0.3-1.2 [facility] Comment on above: Performed By: #### C BCA, CMP, , 2776-04, 1987-08 #### [facility] ([id number]) [address], [address] [place] [address] Calcium [Mass/Vol] 8.7 mg/dL Normal 8.5-10.5 [facility] Comment on above: Performed By: #### C BCA, CMP, , 2776-04, 1987-08 #### [facility] ([id number]) [address], [address] [place] [address] Chloride [Moles/Vol] 103 mmol/L Normal 98-109 [facility] Comment on above: Performed By: #### C BCA, CMP, , 2776-04, 1987-08 #### [facility] ([id number]) [address], [address] [place] [address] CO2 [Moles/Vol] 26 mmol/L Normal 22-32 [facility] Comment on above: Performed By: #### C VIRGILIO CMP, , 2776-04, 1987-08 #### [facility] ([id number]) [address], [address] [place] [address] Creatinine [Mass/Vol] 2.33 mg/dL High 0.40-1.00 [facility] Comment on above: Result Comment: METH OD TRACEABLE TO IDMS STANDARD Performed By: #### C EDEL POOLE, , 2776-04, 1987-08 #### [facility] ([id number]) [address], [address] [place] [address] GFR/1.73 sq M.predicted among non-blacks MDRD (S/P/Bld) [Vol rate/Area] 24 mL/min/{1.73_m2} Low >59 [facility] Comment on above: Result Comment: Reported eGFR is based on the CKD-EPI 2020 equation that does not use a race coefficient. Performed By: #### C EDEL POOLE, , 2776-04, 1987-08 #### [facility] ([id number]) [address], [address] [place] [address] Glucose [Mass/Vol] 80 mg/dL Normal 65-99 [facility] Comment on above: Performed By: #### C VIRGILIO, CMP, , 2776-04, 1987-08 #### [facility] ([id number]) [address], [address] [place] [address] Potassium [Moles/Vol] 3.9 mmol/L Normal 3.5-5.0 [facility] Comment on above: Performed By: #### C BCA, CMP, , 2776-04, 1987-08 #### [facility] ([id number]) [address], [address] [place] [address] Protein [Mass/Vol] 5.1 g/dL Low 6.0-8.0 [facility] Comment on above: Performed By: #### C VIRGILIO CMP, , 2776-04, 1987-08 #### [facility] ([id number]) [address], [address] [place] [address] Sodium [Moles/Vol] 140 mmol/L Normal 134-146 [facility] Comment on above: Performed By: #### Shahla POOLE [facility], , 2776-04, 1987-08 #### [facility] ([id number]) [address], [address] [place] [address] Urea nitrogen [Mass/Vol] 67 mg/dL High 5-23 [facility] Comment on above: Performed By: #### Shahla POOLE [facility], , 2776-04, 1987-08 #### [facility] ([id number]) [address], [address] [place] [address] Calcium.ionized (Bld) [Mass/ Vol]on 10-24-2023 IONIZED CALCIUM 4.7 mg/dL Normal 4.5-5.3 [facility] Comment on above: Performed By: #### Shahla POOLE [facility], , 2776-04, 1987-08 #### [facility] ([id number]) [address], [address] [place] [address] HBV core Ab IA Qlon 10-24-19 ANTI HBc Negative Normal NEG [facility] Comment on above: Performed By: #### Shahla POOLE, CMP, , 2776-04, 1987-08 #### [facility] ([id number]) [address], [address] [place] [address] HBV surface Ag IA Qlon 10-23 HEPATITIS B SURF AG Negative Normal NEG [facility] Comment on above: Performed By: #### C VIRGILIO, CMP, , 2776-04, 1987-08 #### [facility] ([id number]) [address], [address] [place] [address] MAGNESIUMon 10-24-2023 Magnesium [Mass/Vol] 2.2 mg/dL Normal 1.8-2.6 [facility] Comment on above: Performed By: #### C VIRGILIO, CMP, , 2776-04, 1987-08 #### [facility] ([id number]) [address], [address] [place] [address] PHOSPHORUSon 10-24-2023 Phosphate [Mass/Vol] 3.4 mg/dL Normal 2.4-4.9 [facility] Comment on above: Performed By: #### Shahla POOLE, CMP, , 2776-04, 1987-08 #### [facility] ([id number]) [address], [address] [place] [address] CBC AND AUTO DIFFon 10-23-19 24 Band form neutrophils/100 WBC (Bld) 2.0 % Normal [facility] Comment on above: Performed By: #### C VIRGILIO, CMP, , 2776-04, 1987-08 #### [facility] ([id number]) [address], [address] [place] [address] Erythrocyte distribution width (RBC) [Ratio] 14.6 % Normal 11.5-15.0 [facility] Comment on above: Performed By: #### C VIRGILIO, CMP, , 2776-04, 1987-08 #### [facility] ([id number]) [address], [address] [place] [address] Hematocrit (Bld) [Volume fraction] 31.6 % Low 35-47 [facility] Comment on above: Performed By: #### C BCA, CMP, , 2776-04, 1987-08 #### [facility] ([id number]) [address], [address] [place] [address] Hemoglobin (Bld) [Mass/Vol] 10.5 g/dL Low 11.7-15.5 [facility] Comment on above: Performed By: #### C BCA, CMP, , 2776-04, 1987-08 #### [facility] ([id number]) [address], [address] [place] [address] Lymphocytes (Bld) [#/Vol] 2.0 10*3/uL Normal 1.0-3.5 [facility] Comment on above: Performed By: #### C BCA, CMP, , 2776-04, 1987-08 #### [facility] ([id number]) [address], [address] [address] Lymphocytes/100 WBC (Bld) 21.0 % Normal [facility] Comment on above: Performed By: #### C VIRGILIO, CMP, , 2776-04, 1987-08 #### [facility] ([id number]) [address], [address] [place] [address] MCH (RBC) [Entitic mass] 28.2 pg Normal 27-34 [facility] Comment on above: Performed By: #### C BCA, CMP, , 2776-04, 1987-08 #### [facility] ([id number]) [address] [place] [address] MCHC (RBC) [Mass/Vol] 33.3 g/dL Normal 32-36 [facility] Comment on above: Performed By: #### C BCA, CMP, , 2776-04, 1987-08 #### [facility] ([id number]) [address], [address] [place] [address] MCV (RBC) [Entitic vol] 85 fL Normal 80-100 [facility] Comment on above: Performed By: #### C VIRGILIO, CMP, , 2776-04, 1987-08 #### [facility] ([id number]) [address], [address] [place] [address] Monocytes (Bld) [#/Vol] 1.8 10*3/uL High 0-0.9 [facility] Comment on above: Performed By: #### C BCA, CMP, , 2776-04, 1987-08 #### [facility] ([id number]) [address], [address] [place] [address] Monocytes/100 WBC (Bld) 19.0 % Normal [facility] Comment on above: Performed By: #### Shahla BCA, CMP, , 2776-04, 1987-08 #### [facility] ([id number]) [address], [address] [place] [address] Neutrophils (Bld) [#/Vol] 5.8 10*3/uL Normal 1.5-6.6 [facility] Comment on above: Performed By: #### Shahla BCA, CMP, , 2776-04, 1987-08 #### [facility] ([id number]) [address], [address] [place] [address] Platelet mean volume (Bld) [Entitic vol] 9.3 fL Normal 7-12 [facility] Comment on above: Performed By: #### Shahla BCA, CMP, , 2776-04, 1987-08 #### [facility] ([id number]) [address], [address] [place] [address] Platelets (Bld) [#/Vol] 297 10*3/uL Normal 150-450 [facility] Comment on above: Performed By: #### Shahla BCA, CMP, , 2776-04, 1987-08 #### [facility] ([id number]) [address], [address] [place] [address] RBC COUNT 3.73 X10E12/L Low 3.80-5.20 [facility] Comment on above: Performed By: #### C BCA, CMP, , 2776-04, 1987-08 #### [facility] ([id number]) [address], [address] [place] [address] RBC morphology finding Nom (Bld) NORMAL Normal [facility] Comment on above: Performed By: #### C BCA, CMP, , 2776-04, 1987-08 #### [facility] ([id number]) [address], [address] [place] [address] SEG NEUTROPHIL 58.0 % Normal [facility] Comment on above: Performed By: #### C BCA, CMP, , 2776-04, 1987-08 #### [facility] ([id number]) [address], [address] [place] [address] WBC (Bld) [#/Vol] 9.6 10*3/uL Normal 4.0-11.0 [facility] Comment on above: Performed By: #### C BCA, CMP, , 2776-04, 1987-08 #### [facility] ([id number]) [address], [address] [place] [address] COMPREHENSIVE METABOLIC PANE Phu 10-23-2023 Albumin [Mass/Vol] 3.2 g/dL Normal 3.2-5.3 [facility] Comment on above: Performed By: #### C BCA, CMP, , 2776-04, 1987-08 #### [facility] ([id number]) [address], [address] [place] [address] ALP [Catalytic activity/Vol] 38 U/L Low 39-130 [facility] Comment on above: Performed By: #### C BCA, CMP, , 2776-04, 1987-08 #### [facility] ([id number]) [address], [address] [place] [address] ALT [Catalytic activity/Vol] 10 U/L Normal 0-31 [facility] Comment on above: Performed By: #### C BCA, CMP, , 2776-04, 1987-08 #### [facility] ([id number]) [address], [address] [place] [address] Anion gap [Moles/Vol] 9 mmol/L Normal 5-15 [facility] Comment on above: Performed By: #### C BCA, CMP, , 2776-04, 1987-08 #### [facility] ([id number]) [address], [address] [place] [address] AST [Catalytic activity/Vol] 10 U/L Normal 0-41 [facility] Comment on above: Performed By: #### C BCA, CMP, , 2776-04, 1987-08 #### [facility] ([id number]) [address], [address] [place] [address] Bilirubin [Mass/Vol] 0.3 mg/dL Normal 0.3-1.2 [facility] Comment on above: Performed By: #### C BCA, CMP, , 2776-04, 1987-08 #### [facility] ([id number]) [address], [address] [place] [address] Calcium [Mass/Vol] 8.7 mg/dL Normal 8.5-10.5 [facility] Comment on above: Performed By: #### C BCA, CMP, , 2776-04, 1987-08 #### [facility] ([id number]) [address], [address] [place] [address] Chloride [Moles/Vol] 102 mmol/L Normal 98-109 [facility] Comment on above: Performed By: #### C EDEL POOLE, , 2776-04, 1987-08 #### [facility] ([id number]) [address] [place] [address] CO2 [Moles/Vol] 29 mmol/L Normal 22-32 [facility] Comment on above: Performed By: #### C VIRGILIO CMP, , 2776-04, 1987-08 #### [facility] ([id number]) [address] [place] [address] Creatinine [Mass/Vol] 2.68 mg/dL High 0.40-1.00 [facility] Comment on above: Result Comment: METH OD TRACEABLE TO IDMS STANDARD Performed By: #### C EDEL POOLE, , 2776-04, 1987-08 #### [facility] ([id number]) [address], [address] [place] [address] GFR/1.73 sq M.predicted among non-blacks MDRD (S/P/Bld) [Vol rate/Area] 20 mL/min/{1.73_m2} Low >59 [facility] Comment on above: Result Comment: Reported eGFR is based on the CKD-EPI 2020 equation that does not use a race coefficient. Performed By: #### C EDEL POOLE, , 2776-04, 1987-08 #### [facility] ([id number]) [address], [address] [place] [address] Glucose [Mass/Vol] 86 mg/dL Normal 65-99 [facility] Comment on above: Performed By: #### C BCA CMP, , 2776-04, 1987-08 #### [facility] ([id number]) [address], [address] [place] [address] Potassium [Moles/Vol] 3.7 mmol/L Normal 3.5-5.0 [facility] Comment on above: Performed By: #### C BCA, CMP, , 2776-04, 1987-08 #### [facility] ([id number]) [address], [address] [place] [address] Protein [Mass/Vol] 5.2 g/dL Low 6.0-8.0 [facility] Comment on above: Performed By: #### C BCA, CMP, , 2776-04, 1987-08 #### [facility] ([id number]) [address], [address] [place] [address] Sodium [Moles/Vol] 140 mmol/L Normal 134-146 [facility] Comment on above: Performed By: #### C BCA, CMP, , 2776-04, 1987-08 #### [facility] ([id number]) [address], [address] [place] [address] Urea nitrogen [Mass/Vol] 72 mg/dL High 5-23 [facility] Comment on above: Performed By: #### C BCA, CMP, , 2776-04, 1987-08 #### [facility] ([id number]) [address], [address] [place] [address] Calcium.ionized (Bld) [Mass/ Vol]on 10-23-2023 IONIZED CALCIUM 4.8 mg/dL Normal 4.5-5.3 [facility] Comment on above: Performed By: #### C BCA, CMP, , 2776-04, 1987-08 #### [facility] ([id number]) [address], [address] [place] [address] MAGNESIUMon 10-23-2023 Magnesium [Mass/Vol] 2.4 mg/dL Normal 1.8-2.6 [facility] Comment on above: Performed By: #### C BCA, CMP, , 2776-04, 1987-08 #### [facility] ([id number]) [address], [address] [place] [address] PHOSPHORUSon 10-23-2023 Phosphate [Mass/Vol] 4.0 mg/dL Normal 2.4-4.9 [facility] Comment on above: Performed By: #### C BCA, CMP, , 2776-04, 1987-08 #### [facility] ([id number]) [address], [address] [place] [address] CBC AND AUTO DIFFon 10-22-19 Erythrocyte distribution width (RBC) [Ratio] 15.0 % Normal 11.5-15.0 [facility] Comment on above: Performed By: #### C BCA, CMP, , 2776-04, 1987-08 #### [facility] ([id number]) [address], [address] [place] [address] Hematocrit (Bld) [Volume fraction] 32.1 % Low 35-47 [facility] Comment on above: Performed By: #### C BCA, CMP, , 2776-04, 1987-08 #### [facility] ([id number]) [address], [address] [place] [address] Hemoglobin (Bld) [Mass/Vol] 11.0 g/dL Low 11.7-15.5 [facility] Comment on above: Performed By: #### C BCA, CMP, , 2776-04, 1987-08 #### [facility] ([id number]) [address], [address] [place] [address] Lymphocytes (Bld) [#/Vol] 1.2 10*3/uL Normal 1.0-3.5 [facility] Comment on above: Performed By: #### C BCA, CMP, , 2776-04, 1987-08 #### [facility] ([id number]) [address], [address] [place] [address] Lymphocytes/100 WBC (Bld) 14.0 % Normal [facility] Comment on above: Performed By: #### Shahla POOLE, CMP, , 2776-04, 1987-08 #### [facility] ([id number]) [address], [facility] [address] [place] [address] MCH (RBC) [Entitic mass] 28.8 pg Normal 27-34 [facility] Comment on above: Performed By: #### C BCA, CMP, , 2776-04, 1987-08 #### [facility] ([id number]) [address] [facility] [address] [place] [address] MCHC (RBC) [Mass/Vol] 34.3 g/dL Normal 32-36 [facility] Comment on above: Performed By: #### Shahla BCA, CMP, , 2776-04, 1987-08 #### [facility] ([id number]) [address] [address] [place] [address] MCV (RBC) [Entitic vol] 84 fL Normal 80-100 [facility] Comment on above: Performed By: #### Shahla BCA, CMP, , 2776-04, 1987-08 #### [facility] ([id number]) [address] [address] [place] [address] Metamyelocytes/100 WBC (Bld) 1.0 % Normal [facility] Comment on above: Performed By: #### Shahla BCA, CMP, , 2776-04, 1987-08 #### [facility] ([id number]) [address] [address] [place] [address] Monocytes (Bld) [#/Vol] 0.6 10*3/uL Normal 0-0.9 [facility] Comment on above: Performed By: #### Shahla BCA, CMP, , 2776-04, 1987-08 #### [facility] ([id number]) [address], [address] [place] [address] Monocytes/100 WBC (Bld) 7.0 % Normal [facility] Comment on above: Performed By: #### C BCA, CMP, , 2776-04, 1987-08 #### [facility] ([id number]) [address], [address] [place] [address] MYELOCYTE 3.0 % Normal [facility] Comment on above: Performed By: #### Shahla BCA, CMP, , 2776-04, 1987-08 #### [facility] ([id number]) [address], [address] [place] [address] Neutrophils (Bld) [#/Vol] 6.7 10*3/uL High 1.5-6.6 [facility] Comment on above: Performed By: #### C BCA, CMP, , 2776-04, 1987-08 #### [facility] ([id number]) [address], [address] [place] [address] Platelet mean volume (Bld) [Entitic vol] 9.4 fL Normal 7-12 [facility] Comment on above: Performed By: #### Shahla BCA, CMP, , 2776-04, 1987-08 #### [facility] ([id number]) [address], [address] [place] [address] Platelets (Bld) [#/Vol] 394 10*3/uL Normal 150-450 [facility] Comment on above: Performed By: #### C BCA, CMP, , 2776-04, 1987-08 #### [facility] ([id number]) [address], [address] [place] [address] RBC COUNT 3.83 X10E12/L Normal 3.80-5.20 [facility] Comment on above: Performed By: #### C BCA, CMP, , 2776-04, 1987-08 #### [facility] ([id number]) [address], [address] [place] [address] RBC morphology finding Nom (Bld) NORMAL Normal [facility] Comment on above: Performed By: #### C BCA, CMP, , 2776-04, 1987-08 #### [facility] ([id number]) [address], [address] [place] [address] SEG NEUTROPHIL 75.0 % Normal [facility] Comment on above: Performed By: #### C BCA, CMP, , 2776-04, 1987-08 #### [facility] ([id number]) [address], [address] [place] [address] WBC (Bld) [#/Vol] 8.9 10*3/uL Normal 4.0-11.0 [facility] Comment on above: Performed By: #### C BCA, CMP, , 2776-04, 1987-08 #### [facility] ([id number]) [address], [address] [place] [address] COMPREHENSIVE METABOLIC PANE Phu 10-22-2023 Albumin [Mass/Vol] 3.4 g/dL Normal 3.2-5.3 [facility] Comment on above: Performed By: #### C BCA, CMP, , 2776-04, 1987-08 #### [facility] ([id number]) [address], [address] [place] [address] ALP [Catalytic activity/Vol] 43 U/L Normal 39-130 [facility] Comment on above: Performed By: #### C BCA, CMP, , 2776-04, 1987-08 #### [facility] ([id number]) [address], [address] [place] [address] ALT [Catalytic activity/Vol] 9 U/L Normal 0-31 [facility] Comment on above: Performed By: #### C BCA, CMP, , 2776-04, 1987-08 #### [facility] ([id number]) [address], [address] [place] [address] Anion gap [Moles/Vol] 14 mmol/L Normal 5-15 [facility] Comment on above: Performed By: #### C BCA, CMP, , 2776-04, 1987-08 #### [facility] ([id number]) [address], [address] [place] [address] AST [Catalytic activity/Vol] 12 U/L Normal 0-41 [facility] Comment on above: Performed By: #### C BCA, CMP, , 2776-04, 1987-08 #### [facility] ([id number]) [address], [address] [place] [address] Bilirubin [Mass/Vol] 0.3 mg/dL Normal 0.3-1.2 [facility] Comment on above: Performed By: #### C BCA, CMP, , 2776-04, 1987-08 #### [facility] ([id number]) [address], [address] [place] [address] Calcium [Mass/Vol] 8.9 mg/dL Normal 8.5-10.5 [facility] Comment on above: Performed By: #### C BCA, CMP, , 2776-04, 1987-08 #### [facility] ([id number]) [address], [address] [place] [address] Chloride [Moles/Vol] 99 mmol/L Normal 98-109 [facility] Comment on above: Performed By: #### C BCA, CMP, , 2776-04, 1987-08 #### [facility] ([id number]) [address], [address] [place] [address] CO2 [Moles/Vol] 25 mmol/L Normal 22-32 [facility] Comment on above: Performed By: #### C EDEL POOLE, , 2776-04, 1987-08 #### [facility] ([id number]) [address], [address] [place] [address] Creatinine [Mass/Vol] 3.16 mg/dL High 0.40-1.00 [facility] Comment on above: Result Comment: METH OD TRACEABLE TO IDMS STANDARD Performed By: #### C EDEL POOLE, , 2776-04, 1987-08 #### [facility] ([id number]) [address], [address] [place] [address] GFR/1.73 sq M.predicted among non-blacks MDRD (S/P/Bld) [Vol rate/Area] 16 mL/min/{1.73_m2} Low >59 [facility] Comment on above: Result Comment: Reported eGFR is based on the CKD-EPI 2020 equation that does not use a race coefficient. Performed By: #### C EDEL POOLE, , 2776-04, 1987-08 #### [facility] ([id number]) [address], [address] [place] [address] Glucose [Mass/Vol] 109 mg/dL High 65-99 [facility] Comment on above: Performed By: #### C EDEL POOLE, , 2776-04, 1987-08 #### [facility] ([id number]) [address], [address] [place] [address] Potassium [Moles/Vol] 4.0 mmol/L Normal 3.5-5.0 [facility] Comment on above: Performed By: #### C EDEL POOLE, , 2776-04, 1987-08 #### [facility] ([id number]) [address], [address] [place] [address] Protein [Mass/Vol] 5.7 g/dL Low 6.0-8.0 [facility] Comment on above: Performed By: #### C VIRGILIO, CMP, , 2776-04, 1987-08 #### [facility] ([id number]) [address], [address] [place] [address] Sodium [Moles/Vol] 138 mmol/L Normal 134-146 [facility] Comment on above: Performed By: #### C VIRGILIO CMP, , 2776-04, 1987-08 #### [facility] ([id number]) [address], [address] [place] [address] Urea nitrogen [Mass/Vol] 79 mg/dL High 5-23 [facility] Comment on above: Performed By: #### C VIRGILIO, CMP, , 2776-04, 1987-08 #### [facility] ([id number]) [address], [address] [place] [address] Calcium.ionized (Bld) [Mass/ Vol]on 10-22-2023 IONIZED CALCIUM 4.5 mg/dL Normal 4.5-5.3 [facility] Comment on above: Performed By: #### C VIRGILIO, CMP, , 2776-04, 1987-08 #### [facility] ([id number]) [address], [address] [place] [address] MAGNESIUMon 10-22-2023 Magnesium [Mass/Vol] 2.5 mg/dL Normal 1.8-2.6 [facility] Comment on above: Performed By: #### C BCA, CMP, , 2776-04, 1987-08 #### [facility] ([id number]) [address], [address] [place] [address] PHOSPHORUSon 10-22-2023 Phosphate [Mass/Vol] 4.7 mg/dL Normal 2.4-4.9 [facility] Comment on above: Performed By: #### C BCA, CMP, , 2776-04, 1987-08 #### [facility] ([id number]) [address], [address] [place] [address] Basement membrane IgG Qn (S) on 10-21-2023 Glomerular Base Memb IgG <0.2 Normal <1. 0 (Negative) [facility] Comment on above: Result Comment: NOTE Test Performed by: [facility] [address] [place] [address] [employer] Field Service Technician: Ledy Son Ph.D.; CLIA# [id number] Performed By: #### C BCA, CMP, , 2776-04, 1987-08 #### [facility] ([id number]) [address], [address] [place] [address] CBC AND AUTO DIFFon 10-21-19 24 ABSOLUTE BASOPHIL 0.0 X10E9/L Normal 0.0-0.2 [facility] Comment on above: Performed By: #### C BCA, CMP, , 2776-04, 1987-08 #### [facility] ([id number]) [address], [address] [place] [address] ABSOLUTE NEUTROPHIL 8.8 X10E9/L High 1.5-6.6 [facility] Comment on above: Performed By: #### C BCA, CMP, , 2776-04, 1987-08 #### [facility] ([id number]) [address], [address] [place] [address] Basophils/100 WBC (Bld) 0.1 % Normal [facility] Comment on above: Performed By: #### C BCA, CMP, , 2776-04, 1987-08 #### [facility] ([id number]) [address], [address] [place] [address] Eosinophils (Bld) [#/Vol] 0.0 10*3/uL Normal 0.0-0.4 [facility] Comment on above: Performed By: #### C VIRGILIO [facility], , 2776-04, 1987-08 #### [facility] ([id number]) [address], [facility] [address] [place] [address] Eosinophils/100 WBC (Bld) 0.0 % Normal [facility] Comment on above: Performed By: #### Shahla POOLE [facility], , 2776-04, 1987-08 #### [facility] ([id number]) [address], [address] [address] Erythrocyte distribution width (RBC) [Ratio] 15.1 % High 11.5-15.0 [facility] Comment on above: Performed By: #### Shahla POOLE [facility], , 2776-04, 1987-08 #### [facility] ([id number]) [address], [facility] [address] [place] [address] Hematocrit (Bld) [Volume fraction] 30.9 % Low 35-47 [facility] Comment on above: Performed By: #### Shahla POOLE [facility], , 2776-04, 1987-08 #### [facility] ([id number]) [address], [facility] [address] [place] [address] Hemoglobin (Bld) [Mass/Vol] 10.7 g/dL Low 11.7-15.5 [facility] Comment on above: Performed By: #### Shahla POOLE [facility], , 2776-04, 1987-08 #### [facility] ([id number]) [address], [address] [place] [address] Lymphocytes (Bld) [#/Vol] 1.1 10*3/uL Normal 1.0-3.5 [facility] Comment on above: Performed By: #### C VIRGILIO, CMP, , 2776-04, 1987-08 #### [facility] ([id number]) [address], [address] [place] [address] Lymphocytes/100 WBC (Bld) 10.9 % Normal [facility] Comment on above: Performed By: #### Shahla POOLE, CMP, , 2776-04, 1987-08 #### [facility] ([id number]) [address], [address] [place] [address] MCH (RBC) [Entitic mass] 29.1 pg Normal 27-34 [facility] Comment on above: Performed By: #### Shahla POOLE, CMP, , 2776-04, 1987-08 #### [facility] ([id number]) [address], [address] [place] [address] MCHC (RBC) [Mass/Vol] 34.7 g/dL Normal 32-36 [facility] Comment on above: Performed By: #### Shahla POOLE, CMP, , 2776-04, 1987-08 #### [facility] ([id number]) [address], [address] [place] [address] MCV (RBC) [Entitic vol] 84 fL Normal 80-100 [facility] Comment on above: Performed By: #### Shahla POOLE, CMP, , 2776-04, 1987-08 #### [facility] ([id number]) [address], [address] [place] [address] Monocytes (Bld) [#/Vol] 0.2 10*3/uL Normal 0-0.9 [facility] Comment on above: Performed By: #### Shahla BCA, CMP, , 2776-04, 1987-08 #### [facility] ([id number]) [address], [address] [place] [address] Monocytes/100 WBC (Bld) 2.2 % Normal [facility] Comment on above: Performed By: #### C VIRGILIO, CMP, , 2776-04, 1987-08 #### [facility] ([id number]) [address], [address] [place] [address] Neutrophils/100 WBC (Bld) 86.8 % Normal [facility] Comment on above: Performed By: #### Shahla BCA, CMP, , 2776-04, 1987-08 #### [facility] ([id number]) [address], [address] [place] [address] Platelet mean volume (Bld) [Entitic vol] 9.5 fL Normal 7-12 [facility] Comment on above: Performed By: #### Shahla POOLE, CMP, , 2776-04, 1987-08 #### [facility] ([id number]) [address], [address] [place] [address] Platelets (Bld) [#/Vol] 297 10*3/uL Normal 150-450 [facility] Comment on above: Performed By: #### Shahla BCA, CMP, , 2776-04, 1987-08 #### [facility] ([id number]) [address], [address] [place] [address] RBC COUNT 3.69 X10E12/L Low 3.80-5.20 [facility] Comment on above: Performed By: #### Shahla BCA, CMP, , 2776-04, 1987-08 #### [facility] ([id number]) [address], [address] [place] [address] WBC (Bld) [#/Vol] 10.2 10*3/uL Normal 4.0-11.0 [facility] Comment on above: Performed By: #### Shahla BCA, CMP, , 2776-04, 1987-08 #### [facility] ([id number]) [address], [address] [place] [address] COMPREHENSIVE METABOLIC PANE Phu 10-21-2023 Albumin [Mass/Vol] 3.6 g/dL Normal 3.2-5.3 [facility] Comment on above: Performed By: #### C BCA, CMP, , 2776-04, 1987-08 #### [facility] ([id number]) [address], [address] [place] [address] ALP [Catalytic activity/Vol] 46 U/L Normal 39-130 [facility] Comment on above: Performed By: #### C BCA, CMP, , 2776-04, 1987-08 #### [facility] ([id number]) [address], [address] [place] [address] ALT [Catalytic activity/Vol] 15 U/L Normal 0-31 [facility] Comment on above: Performed By: #### C BCA, CMP, , 2776-04, 1987-08 #### [facility] ([id number]) [address], [address] [place] [address] Anion gap [Moles/Vol] 12 mmol/L Normal 5-15 [facility] Comment on above: Performed By: #### C BCA, CMP, , 2776-04, 1987-08 #### [facility] ([id number]) [address], [address] [place] [address] AST [Catalytic activity/Vol] 18 U/L Normal 0-41 [facility] Comment on above: Performed By: #### C BCA, CMP, , 2776-04, 1987-08 #### [facility] ([id number]) [address], [address] [place] [address] Bilirubin [Mass/Vol] 0.3 mg/dL Normal 0.3-1.2 [facility] Comment on above: Performed By: #### C BCA, CMP, , 2776-04, 1987-08 #### [facility] ([id number]) [address], [address] [place] [address] Calcium [Mass/Vol] 8.8 mg/dL Normal 8.5-10.5 [facility] Comment on above: Performed By: #### C BCA, CMP, , 2776-04, 1987-08 #### [facility] ([id number]) [address], [address] [place] [address] Chloride [Moles/Vol] 96 mmol/L Low 98-109 [facility] Comment on above: Performed By: #### C BCA, CMP, , 2776-04, 1987-08 #### [facility] ([id number]) [address], [address] [place] [address] CO2 [Moles/Vol] 28 mmol/L Normal 22-32 [facility] Comment on above: Performed By: #### C BCA, CMP, , 2776-04, 1987-08 #### [facility] ([id number]) [address], [address] [place] [address] Creatinine [Mass/Vol] 3.71 mg/dL High 0.40-1.00 [facility] Comment on above: Result Comment: METH OD TRACEABLE TO IDMS STANDARD Performed By: #### C BCA, CMP, , 2776-04, 1987-08 #### [facility] ([id number]) [address], [address] [place] [address] GFR/1.73 sq M.predicted among non-blacks MDRD (S/P/Bld) [Vol rate/Area] 13 mL/min/{1.73_m2} Low >59 [facility] Comment on above: Result Comment: Reported eGFR is based on the CKD-EPI 2020 equation that does not use a race coefficient. Performed By: #### C VIRGILIO [facility], , 2776-04, 1987-08 #### [facility] ([id number]) [address], [address] [place] [address] Glucose [Mass/Vol] 131 mg/dL High 65-99 [facility] Comment on above: Performed By: #### C VIRGILIO [facility], , 2776-04, 1987-08 #### [facility] ([id number]) [address], [address] [place] [address] Potassium [Moles/Vol] 4.6 mmol/L Normal 3.5-5.0 [facility] Comment on above: Performed By: #### C VIRGILIO [facility], , 2776-04, 1987-08 #### [facility] ([id number]) [address], [address] [place] [address] Protein [Mass/Vol] 5.9 g/dL Low 6.0-8.0 [facility] Comment on above: Performed By: #### C VIRGILIO [facility], , 2776-04, 1987-08 #### [facility] ([id number]) [address], [address] [place] [address] Sodium [Moles/Vol] 136 mmol/L Normal 134-146 [facility] Comment on above: Performed By: #### C VIRGILIO [facility], , 2776-04, 1987-08 #### [facility] ([id number]) [address], [address] [place] [address] Urea nitrogen [Mass/Vol] 80 mg/dL High 5-23 [facility] Comment on above: Performed By: #### C VIRGILIO, CMP, , 2776-04, 1987-08 #### [facility] ([id number]) [address], [address] [place] [address] Calcium.ionized (Bld) [Mass/ Vol]on 10-21-2023 IONIZED CALCIUM 4.5 mg/dL Normal 4.5-5.3 [facility] Comment on above: Performed By: #### C VIRGILIO, CMP, , 2776-04, 1987-08 #### [facility] ([id number]) [address], [address] [place] [address] MAGNESIUMon 10-21-2023 Magnesium [Mass/Vol] 2.4 mg/dL Normal 1.8-2.6 [facility] Comment on above: Performed By: #### C VIRGILIO CMP, , 2776-04, 1987-08 #### [facility] ([id number]) [address] [place] [address] PHOSPHORUSon 10-21-2023 Phosphate [Mass/Vol] 5.5 mg/dL High 2.4-4.9 [facility] Comment on above: Performed By: #### Shahla POOLE, CMP, , 2776-04, 1987-08 #### [facility] ([id number]) [address] [place] [address] CBC AND AUTO DIFFon 10-20-19 24 ABSOLUTE BASOPHIL 0.0 X10E9/L Normal 0.0-0.2 [facility] Comment on above: Performed By: #### Shahla POOLE, CMP, , 2776-04, 1987-08 #### [facility] ([id number]) [address], [address] [place] [address] ABSOLUTE NEUTROPHIL 14.6 X10E9/L High 1.5-6.6 [facility] Comment on above: Performed By: #### Shahla BCA, CMP, , 2776-04, 1987-08 #### [facility] ([id number]) [address], [address] [place] [address] Basophils/100 WBC (Bld) 0.1 % Normal [facility] Comment on above: Performed By: #### C BCA, CMP, , 2776-04, 1987-08 #### [facility] ([id number]) [address], [address] [place] [address] Eosinophils (Bld) [#/Vol] 0.0 10*3/uL Normal 0.0-0.4 [facility] Comment on above: Performed By: #### C BCA, CMP, , 2776-04, 1987-08 #### [facility] ([id number]) [address], [facility] [address] [place] [address] Eosinophils/100 WBC (Bld) 0.0 % Normal [facility] Comment on above: Performed By: #### Shahla BCA, CMP, , 2776-04, 1987-08 #### [facility] ([id number]) [address], [address] [place] [address] Erythrocyte distribution width (RBC) [Ratio] 15.3 % High 11.5-15.0 [facility] Comment on above: Performed By: #### Shahla BCA, CMP, , 2776-04, 1987-08 #### [facility] ([id number]) [address], [facility] [address] [place] [address] Hematocrit (Bld) [Volume fraction] 32.0 % Low 35-47 [facility] Comment on above: Performed By: #### C BCA, CMP, , 2776-04, 1987-08 #### [facility] ([id number]) [address] [address] [place] [address] Hemoglobin (Bld) [Mass/Vol] 10.5 g/dL Low 11.7-15.5 [facility] Comment on above: Performed By: #### C BCA, CMP, , 2776-04, 1987-08 #### [facility] ([id number]) [address] [place] [address] Lymphocytes (Bld) [#/Vol] 1.7 10*3/uL Normal 1.0-3.5 [facility] Comment on above: Performed By: #### Shahla POOLE CMP, , 2776-04, 1987-08 #### [facility] ([id number]) [address], [address] [place] [address] Lymphocytes/100 WBC (Bld) 10.3 % Normal [facility] Comment on above: Performed By: #### Shahla POOLE, CMP, , 2776-04, 1987-08 #### [facility] ([id number]) [address], [address] [place] [address] MCH (RBC) [Entitic mass] 27.7 pg Normal 27-34 [facility] Comment on above: Performed By: #### Shahla POOLE, CMP, , 2776-04, 1987-08 #### [facility] ([id number]) [address], [address] [place] [address] MCHC (RBC) [Mass/Vol] 32.9 g/dL Normal 32-36 [facility] Comment on above: Performed By: #### Shahla POOLE CMP, , 2776-04, 1987-08 #### [facility] ([id number]) [address] [place] [address] MCV (RBC) [Entitic vol] 84 fL Normal 80-100 [facility] Comment on above: Performed By: #### Shahla BCA, CMP, , 2776-04, 1987-08 #### [facility] ([id number]) [address], [address] [place] [address] Monocytes (Bld) [#/Vol] 0.4 10*3/uL Normal 0-0.9 [facility] Comment on above: Performed By: #### C BCA, CMP, , 2776-04, 1987-08 #### [facility] ([id number]) [address], [address] [place] [address] Monocytes/100 WBC (Bld) 2.2 % Normal [facility] Comment on above: Performed By: #### Shahla BCA, CMP, , 2776-04, 1987-08 #### [facility] ([id number]) [address], [address] [place] [address] Neutrophils/100 WBC (Bld) 87.4 % Normal [facility] Comment on above: Performed By: #### Shahla BCA, CMP, , 2776-04, 1987-08 #### [facility] ([id number]) [address], [address] [place] [address] Platelet mean volume (Bld) [Entitic vol] 9.3 fL Normal 7-12 [facility] Comment on above: Performed By: #### Shahla BCA, CMP, , 2776-04, 1987-08 #### [facility] ([id number]) [address], [address] [place] [address] Platelets (Bld) [#/Vol] 350 10*3/uL Normal 150-450 [facility] Comment on above: Performed By: #### Shahla BCA, CMP, , 2776-04, 1987-08 #### [facility] ([id number]) [address], [address] [place] [address] RBC COUNT 3.80 X10E12/L Normal 3.80-5.20 [facility] Comment on above: Performed By: #### C BCA, CMP, , 2776-04, 1987-08 #### [facility] ([id number]) [address], [address] [place] [address] WBC (Bld) [#/Vol] 16.7 10*3/uL High 4.0-11.0 [facility] Comment on above: Performed By: #### C BCA, CMP, , 2776-04, 1987-08 #### [facility] ([id number]) [address], [address] [place] [address] COMPREHENSIVE METABOLIC PANE Phu 10-20-2023 Albumin [Mass/Vol] 3.6 g/dL Normal 3.2-5.3 [facility] Comment on above: Performed By: #### C BCA, CMP, , 2776-04, 1987-08 #### [facility] ([id number]) [address], [address] [place] [address] ALP [Catalytic activity/Vol] 53 U/L Normal 39-130 [facility] Comment on above: Performed By: #### C BCA, CMP, , 2776-04, 1987-08 #### [facility] ([id number]) [address], [address] [place] [address] ALT [Catalytic activity/Vol] 14 U/L Normal 0-31 [facility] Comment on above: Performed By: #### C BCA, CMP, , 2776-04, 1987-08 #### [facility] ([id number]) [address], [address] [place] [address] Anion gap [Moles/Vol] 13 mmol/L Normal 5-15 [facility] Comment on above: Performed By: #### C BCA, CMP, , 2776-04, 1987-08 #### [facility] ([id number]) [address], [address] [place] [address] AST [Catalytic activity/Vol] 27 U/L Normal 0-41 [facility] Comment on above: Performed By: #### C BCA, CMP, , 2776-04, 1987-08 #### [facility] [facility] ([id number]) [address], [address] [place] [address] Bilirubin [Mass/Vol] 0.3 mg/dL Normal 0.3-1.2 [facility] Comment on above: Performed By: #### C BCA, CMP, , 2776-04, 1987-08 #### [facility] ([id number]) [address], [address] [place] [address] Calcium [Mass/Vol] 9.1 mg/dL Normal 8.5-10.5 [facility] Comment on above: Performed By: #### C BCA, CMP, , 2776-04, 1987-08 #### [facility] ([id number]) [address], [address] [place] [address] Chloride [Moles/Vol] 94 mmol/L Low 98-109 [facility] Comment on above: Performed By: #### C BCA, CMP, , 2776-04, 1987-08 #### [facility] ([id number]) [address], [address] [place] [address] CO2 [Moles/Vol] 28 mmol/L Normal 22-32 [facility] Comment on above: Performed By: #### C BCA, CMP, , 2776-04, 1987-08 #### [facility] ([id number]) [address], [address] [place] [address] Creatinine [Mass/Vol] 3.58 mg/dL High 0.40-1.00 [facility] Comment on above: Result Comment: METH OD TRACEABLE TO IDMS STANDARD Performed By: #### C BCA, CMP, , 2776-04, 1987-08 #### [facility] ([id number]) [address], [address] [place] [address] GFR/1.73 sq M.predicted among non-blacks MDRD (S/P/Bld) [Vol rate/Area] 14 mL/min/{1.73_m2} Low >59 [facility] Comment on above: Result Comment: Reported eGFR is based on the CKD-EPI 2020 equation that does not use a race coefficient. Performed By: #### C EDEL POOLE, , 2776-04, 1987-08 #### [facility] ([id number]) [address], [address] [place] [address] Glucose [Mass/Vol] 133 mg/dL High 65-99 [facility] Comment on above: Performed By: #### C VIRGILIO CMP, , 2776-04, 1987-08 #### [facility] ([id number]) [address], [address] [place] [address] Potassium [Moles/Vol] 4.8 mmol/L Normal 3.5-5.0 [facility] Comment on above: Performed By: #### C VIRGILIO CMP, , 2776-04, 1987-08 #### [facility] ([id number]) [address], [address] [place] [address] Protein [Mass/Vol] 6.1 g/dL Normal 6.0-8.0 [facility] Comment on above: Performed By: #### C VIRGILIO CMP, , 2776-04, 1987-08 #### [facility] ([id number]) [address], [address] [place] [address] Sodium [Moles/Vol] 135 mmol/L Normal 134-146 [facility] Comment on above: Performed By: #### C VIRGILIO CMP, , 2776-04, 1987-08 #### [facility] ([id number]) [address], [address] [place] [address] Urea nitrogen [Mass/Vol] 70 mg/dL High 5-23 [facility] Comment on above: Performed By: #### C VIRGILIO, CMP, 96209-8, 2776-04, 1987-08 #### [facility] ([id number]) [address], [address] [place] [address] Calcium.ionized (Bld) [Mass/ Vol]on 10-20-2023 IONIZED CALCIUM 4.6 mg/dL Normal 4.5-5.3 [facility] Comment on above: Performed By: #### C BCA, [facility], , 2776-04, 1987-08 #### [facility] ([id number]) [address], [address] [place] [address] IR BIOPSY RENAL PERC RTon IR BIOPSY [...] Mann MD on 10/20/2023 3:13 PM Normal [facility] MAGNESIUMon 10-20-2023 Magnesium [Mass/Vol] 2.3 mg/dL Normal 1.8-2.6 [facility] Comment on above: Performed By: #### C BCA, CMP, 20444-4, 2776-04, 1987-08 #### [facility] ([id number]) [address] [place] [address] PHOSPHORUSon 10-20-2023 Phosphate [Mass/Vol] 6.3 mg/dL High 2.4-4.9 [facility] Comment on above: Performed By: #### C BCA, CMP, 92168-0, 2776-04, 1987-08 #### [facility] ([id number]) [address] [place] [address], [address] [place] [address] Surgical Pathologyon 024 Surgical Pathology Normal [facility] Comment on above: Result Comment: [facility] [address] [place] [address] Surgical Pathology Consultation ADDENDUM [place] Patient Name:DANIELLE MONTANA:1965 (Age: 58)Gender:FTaken:10/20/2023eported:10/24/2023hysician(s):Wanda Fonseca [place] ([phone])Copy To:MD Natasha ROSALES M.D. Rec. #:[id number]: #[id number] Final Pathologic Diagnosis Right kidney, needle biopsy: Specimen sent to [facility]. Report Electronically Signed Out [facility]/10/24/2023Gene MD Derrick Addendum (PHS) Date Reported: 10/24/2023 Results of routine histology and immunofluorescence dated 10/24/2023 are received from Deidra Bustos M.D., [facility], [address] [place] [address] and are as follows: Final Diagnosis: Kidney, [...] addendum. Please see the complete report from [facility] in the patient's EMR. Electronically Signed Out Trace Meza MD Addendum (PHS) Date Reported: 11/02/2023 Results of Addendum (Electron Microscopy) dated are received from Deidra Bustos M.D., [facility], [address] [place] [address] and are as follows: Paraffin-based immunofluorescence stains [...] case. Please see the complete report from [facility] in the patient's EMR. Electronically Signed Out Trace Meza MD Addendum ([facility]) Date Reported: 11/08/2023 Results of Mass Spectrometry dated 11/07/2023 are received from Adan Yates M.D., Ph.D., [facility], [address] [place] [address] and are as follows: MASS SPECTROMETRY Liquid chromatography tandem mass spectrometry (LC MS/MS) was performed on peptides extracted from glomeruli that were microdissected from the paraffin-embedded specimen. LC MS/MS did not detect a peptide profile consistent with any of the following antigens: PLA2R, THSD7A, EXT1/EXT2, NELL1, SEMA3B, CNTN1, NCAM1, PCSK6, PCDH7, FAT1 or NDNF. Please see the complete report from [facility] (more content not included)... CBC AND AUTO DIFFon 10-19-19 24 Band form neutrophils/100 WBC (Bld) 1.0 % Normal [facility] Comment on above: Performed By: #### C VIRGILIO [facility], , 2776-04, 1987-08 #### [facility] ([id number]) [address] [address] [place] [address] Erythrocyte distribution width (RBC) [Ratio] 14.9 % Normal 11.5-15.0 [facility] Comment on above: Performed By: #### C VIRGILIO [facility], , 2776-04, 1987-08 #### [facility] ([id number]) [address] [address] [place] [address] Hematocrit (Bld) [Volume fraction] 34.4 % Low 35-47 [facility] Comment on above: Performed By: #### C VIRGILIO CMP, , 2776-04, 1987-08 #### [facility] ([id number]) [address], [address] [place] [address] Hemoglobin (Bld) [Mass/Vol] 11.4 g/dL Low 11.7-15.5 [facility] Comment on above: Performed By: #### C BCA, CMP, , 2776-04, 1987-08 #### [facility] ([id number]) [address], [address] [place] [address] Lymphocytes (Bld) [#/Vol] 1.9 10*3/uL Normal 1.0-3.5 [facility] Comment on above: Performed By: #### C BCA, CMP, , 2776-04, 1987-08 #### [facility] ([id number]) [address], [address] [place] [address] Lymphocytes/100 WBC (Bld) 15.0 % Normal [facility] Comment on above: Performed By: #### C BCA, CMP, , 2776-04, 1987-08 #### [facility] ([id number]) [address], [address] [place] [address] MCH (RBC) [Entitic mass] 27.8 pg Normal 27-34 [facility] Comment on above: Performed By: #### C BCA, CMP, , 2776-04, 1987-08 #### [facility] ([id number]) [address], [address] [place] [address] MCHC (RBC) [Mass/Vol] 33.2 g/dL Normal 32-36 [facility] Comment on above: Performed By: #### C BCA, CMP, , 2776-04, 1987-08 #### [facility] ([id number]) [address], [address] [place] [address] MCV (RBC) [Entitic vol] 84 fL Normal 80-100 [facility] Comment on above: Performed By: #### C BCA, CMP, , 2776-04, 1987-08 #### [facility] ([id number]) [address], [address] [place] [address] Metamyelocytes/100 WBC (Bld) 1.0 % Normal [facility] Comment on above: Performed By: #### C BCA, CMP, , 2776-04, 1987-08 #### [facility] ([id number]) [address], [address] [place] [address] Monocytes (Bld) [#/Vol] 0.1 10*3/uL Normal 0-0.9 [facility] Comment on above: Performed By: #### C BCA, CMP, , 2776-04, 1987-08 #### [facility] ([id number]) [address], [address] [place] [address] Monocytes/100 WBC (Bld) 1.0 % Normal [facility] Comment on above: Performed By: #### Shahla BCA, CMP, , 2776-04, 1987-08 #### [facility] ([id number]) [address], [address] [place] [address] Neutrophils (Bld) [#/Vol] 10.4 10*3/uL High 1.5-6.6 [facility] Comment on above: Performed By: #### C BCA, CMP, , 2776-04, 1987-08 #### [facility] ([id number]) [address], [address] [place] [address] Platelet mean volume (Bld) [Entitic vol] 9.3 fL Normal 7-12 [facility] Comment on above: Performed By: #### C BCA, CMP, , 2776-04, 1987-08 #### [facility] ([id number]) [address], [address] [place] [address] Platelets (Bld) [#/Vol] 324 10*3/uL Normal 150-450 [facility] Comment on above: Performed By: #### C BCA, CMP, , 2776-04, 1987-08 #### [facility] ([id number]) [address], [address] [place] [address] POLYCHROMASIA 1+ Abnormal NONE [facility] Comment on above: Performed By: #### C BCA, CMP, , 2776-04, 1987-08 #### [facility] ([id number]) [address], [address] [place] [address] RBC COUNT 4.09 X10E12/L Normal 3.80-5.20 [facility] Comment on above: Performed By: #### C BCA, CMP, , 2776-04, 1987-08 #### [facility] ([id number]) [address], [address] [place] [address] SEG NEUTROPHIL 82.0 % Normal [facility] Comment on above: Performed By: #### C BCA, CMP, , 2776-04, 1987-08 #### [facility] ([id number]) [address], [address] [place] [address] WBC (Bld) [#/Vol] 12.5 10*3/uL High 4.0-11.0 [facility] Comment on above: Performed By: #### C BCA, CMP, , 2776-04, 1987-08 #### [facility] ([id number]) [address], [address] [place] [address] COMPREHENSIVE METABOLIC PANE Phu 10-19-2023 Albumin [Mass/Vol] 3.7 g/dL Normal 3.2-5.3 [facility] Comment on above: Performed By: #### C BCA, CMP, , 2776-04, 1987-08 #### [facility] ([id number]) [address], [address] [place] [address] ALP [Catalytic activity/Vol] 58 U/L Normal 39-130 [facility] Comment on above: Performed By: #### C BCA, CMP, , 2776-04, 1987-08 #### [facility] ([id number]) [address], [address] [place] [address] ALT [Catalytic activity/Vol] 10 U/L Normal 0-31 [facility] Comment on above: Performed By: #### C BCA, CMP, , 2776-04, 1987-08 #### [facility] ([id number]) [address], [address] [place] [address] Anion gap [Moles/Vol] 13 mmol/L Normal 5-15 [facility] Comment on above: Performed By: #### C BCA, CMP, , 2776-04, 1987-08 #### [facility] ([id number]) [address], [address] [place] [address] AST [Catalytic activity/Vol] 17 U/L Normal 0-41 [facility] Comment on above: Performed By: #### C BCA, CMP, , 2776-04, 1987-08 #### [facility] ([id number]) [address], [address] [place] [address] Bilirubin [Mass/Vol] 0.3 mg/dL Normal 0.3-1.2 [facility] Comment on above: Performed By: #### C BCA, CMP, , 2776-04, 1987-08 #### [facility] ([id number]) [address], [address] [place] [address] Calcium [Mass/Vol] 9.9 mg/dL Normal 8.5-10.5 [facility] Comment on above: Performed By: #### C BCA, CMP, , 2776-04, 1987-08 #### [facility] ([id number]) [address], [address] [place] [address] Chloride [Moles/Vol] 95 mmol/L Low 98-109 [facility] Comment on above: Performed By: #### C BCA, CMP, , 2776-04, 1987-08 #### [facility] ([id number]) [address], [address] [place] [address] CO2 [Moles/Vol] 28 mmol/L Normal 22-32 [facility] Comment on above: Performed By: #### C BCA, CMP, , 2776-04, 1987-08 #### [facility] ([id number]) [address], [address] [place] [address] Creatinine [Mass/Vol] 3.62 mg/dL High 0.40-1.00 [facility] Comment on above: Result Comment: METH OD TRACEABLE TO IDMS STANDARD Performed By: #### C BCA, CMP, , 2776-04, 1987-08 #### [facility] ([id number]) [address], [address] [place] [address] GFR/1.73 sq M.predicted among non-blacks MDRD (S/P/Bld) [Vol rate/Area] 14 mL/min/{1.73_m2} Low >59 [facility] Comment on above: Result Comment: Reported eGFR is based on the CKD-EPI 2020 equation that does not use a race coefficient. Performed By: #### C BCA, CMP, , 2776-04, 1987-08 #### [facility] ([id number]) [address], [address] [place] [address] Glucose [Mass/Vol] 146 mg/dL High 65-99 [facility] Comment on above: Performed By: #### C BCA, CMP, , 2776-04, 1987-08 #### [facility] ([id number]) [address], [address] [place] [address] Potassium [Moles/Vol] 5.2 mmol/L High 3.5-5.0 [facility] Comment on above: Performed By: #### C VIRGILIO CMP, , 2776-04, 1987-08 #### [facility] ([id number]) [address], [address] [place] [address] Protein [Mass/Vol] 6.4 g/dL Normal 6.0-8.0 [facility] Comment on above: Performed By: #### C VIRGILIO CMP, , 2776-04, 1987-08 #### [facility] ([id number]) [address] [place] [address] Sodium [Moles/Vol] 136 mmol/L Normal 134-146 [facility] Comment on above: Performed By: #### Shahla POOLE CMP, , 2776-04, 1987-08 #### [facility] ([id number]) [address] [place] [address] Urea nitrogen [Mass/Vol] 53 mg/dL High 5-23 [facility] Comment on above: Performed By: #### Shahla POOLE, CMP, , 2776-04, 1987-08 #### [facility] ([id number]) [address], [address] [place] [address] CRP [Mass/Vol]on 10-19-2023 C REACTIVE PROTEIN 0.9 mg/dL High 0.000-0.7 4 4 [facility] Comment on above: Performed By: #### C VIRGILIO CMP, , 2776-04, 1987-08 #### [facility] ([id number]) [address], [address] [place] [address] Calcium.ionized (Bld) [Mass/ Vol]on 10-19-2023 IONIZED CALCIUM 4.6 mg/dL Normal 4.5-5.3 [facility] Comment on above: Performed By: #### 3 8230-9 #### [facility] ([id number]) [address], [address] [place] [address] IMMUNOGLOBULINSon 10-19-2023 IgA [Mass/Vol] 109 mg/dL Normal 68-378 [facility] Comment on above: Performed By: #### P INR, 15617-7, IMGB #### [facility] ([id number]) [address], [address] [place] [address] IgG [Mass/Vol] 460 mg/dL Low 635-1741 [facility] Comment on above: Performed By: #### P INR, 91915-7, IMGB #### [facility] ([id number]) [address] [place] [address] IgM [Mass/Vol] 98 mg/dL Normal 45-281 [facility] Comment on above: Performed By: #### P INR, 79465-6, IMGB #### [facility] ([id number]) [address] [place] [address] MAGNESIUMon 10-19-2023 Magnesium [Mass/Vol] 2.0 mg/dL Normal 1.8-2.6 [facility] Comment on above: Performed By: #### C VIRGILIO CMP, , 2776-04, 1987-08 #### [facility] ([id number]) [address], [address] [place] [address] PHOSPHORUSon 10-19-2023 Phosphate [Mass/Vol] 4.8 mg/dL Normal 2.4-4.9 [facility] Comment on above: Performed By: #### C VIRGILIO, CMP, , 2776-04, 1987-08 #### [facility] ([id number]) [address], [address] [place] [address] PLATELET FUNCTIONon 10-19-19 24 COLLAGEN/ADP 72 sec Normal 0-114 [facility] Comment on above: Performed By: #### P FA, PINR, 83710-3 #### [facility] ([id number]) [address] [place] [address] COLLAGEN/EPINEPHRINE 81 sec Normal 0-179 [facility] Comment on above: Performed By: #### P FA, PINR, 84309-6 #### [facility] ([id number]) [address], [address] [place] [address] PFA INTERP Platelet function is normal. If patient Normal [facility] Comment on above: Result Comment: hist ory/physical examination gives strong indication of a bleeding disorder, consider testing for other etiologies. Performed By: #### P FA, PINR, 93446-4 #### [facility] ([id number]) [address], [address] [place] [address] PROTIME AND INRon 10-19-2023 INR Coag (PPP) [Relative time] 0.9 {INR} Normal 0.8-1.1 [facility] Comment on above: Performed By: #### C VIRGILIO CMP, , 2776-04, 1987-08 #### [facility] ([id number]) [address] [place] [address] PT Coag (PPP) [Time] 10.4 s Normal 9.8-13.2 [facility] Comment on above: Performed By: #### C VIRGILIO, CMP, , 2776-04, 1987-08 #### [facility] ([id number]) [address] [place] [address] INR Coag (PPP) [Relative time] 0.9 {INR} Normal 0.8-1.1 [facility] Comment on above: Performed By: #### P INR, 99723-2, IMGB #### [facility] ([id number]) [address], [address] [place] [address] PT Coag (PPP) [Time] 10.4 s Normal 9.8-13.2 [facility] Comment on above: Performed By: #### P INR, 03344-0, IMGB #### [facility] ([id number]) [address] [place] [address] aPTT Coag (PPP) [Time]on aPTT Coag (Bld) [Time] 40 s High 26-37 [facility] Comment on above: Performed By: #### C BCA, CMP, , 2776-04, 1987-08 #### [facility] ([id number]) [address] [place] [address] aPTT Coag (Bld) [Time] 34 s Normal 26-37 [facility] Comment on above: Performed By: #### P INR, 31882-5, IMGB #### [facility] ([id number]) [address], [address] [place] [address] Basement membrane IgG Qn (S) on 10-18-2023 Glomerular Base Memb IgG <0.2 Normal <1. 0 (Negative) [facility] Comment on above: Result Comment: NOTE Test Performed by: [facility] [address] [place] [address] [employer] Field Service Technician: Ledy Son Ph.D.; CLIA# [id number] Performed By: #### 8 9579-7 #### [facility] ([id number]) [address] [place] [address] CBC AND AUTO DIFFon 10-18-19 24 ABSOLUTE BASOPHIL 0.1 X10E9/L Normal 0.0-0.2 [facility] Comment on above: Performed By: #### C BCA, CMP, , 2776-04 ####[facility] ([id number])[address] [place] [address] ABSOLUTE NEUTROPHIL 4.5 X10E9/L Normal 1.5-6.6 [facility] Comment on above: Performed By: #### Shahla POOLE, CMP, , 2776-04 ####[facility] ([id number])[address] [place] [address] Basophils/100 WBC (Bld) 1.0 % Normal [facility] Comment on above: Performed By: #### C VIRGILIO, CMP, , 2776-04 ####[facility] ([id number])[address] [place] [address] Eosinophils (Bld) [#/Vol] 0.4 10*3/uL Normal 0.0-0.4 [facility] Comment on above: Performed By: #### Shahla POOLE, CMP, , 2776-04 ####[facility] ([id number])[address] [place] [address] Eosinophils/100 WBC (Bld) 5.1 % Normal [facility] Comment on above: Performed By: #### Shahla BCA, CMP, , 2776-04 ####[facility] ([id number])[address] [place] [address] Erythrocyte distribution width (RBC) [Ratio] 15.0 % Normal 11.5-15.0 [facility] Comment on above: Performed By: #### Shahla POOLE, CMP, , 2776-04 ####[facility] ([id number])[address] [place] [address] Hematocrit (Bld) [Volume fraction] 31.7 % Low 35-47 [facility] Comment on above: Performed By: #### Shahla BCA, CMP, , 2776-04 ####[facility] ([id number])[address] [place] [address] Hemoglobin (Bld) [Mass/Vol] 10.5 g/dL Low 11.7-15.5 [facility] Comment on above: Performed By: #### C EDEL POOLE, , 2776-04 ####[facility] ([id number])[address] [place] [address] Lymphocytes (Bld) [#/Vol] 2.1 10*3/uL Normal 1.0-3.5 [facility] Comment on above: Performed By: #### Shahla POOLE CMP, , 2776-04 ####[facility] ([id number])[address] [place] [address] Lymphocytes/100 WBC (Bld) 27.3 % Normal [facility] Comment on above: Performed By: #### Shahla POOLE CMP, , 2776-04 ####[facility] ([id number])[address] [place] [address] MCH (RBC) [Entitic mass] 27.7 pg Normal 27-34 [facility] Comment on above: Performed By: #### Shahla POOLE CMP, , 2776-04 ####[facility] ([id number])[address] [place] [address] MCHC (RBC) [Mass/Vol] 33.1 g/dL Normal 32-36 [facility] Comment on above: Performed By: #### C VIRGILIO CMP, , 2776-04 ####[facility] ([id number])[address] [place] [address] MCV (RBC) [Entitic vol] 84 fL Normal 80-100 [facility] Comment on above: Performed By: #### Shahla POOLE CMP, , 2776-04 ####[facility] ([id number])[address] [place] [address] Monocytes (Bld) [#/Vol] 0.7 10*3/uL Normal 0-0.9 [facility] Comment on above: Performed By: #### Shahla POOLE, CMP, , 2776-04 ####[facility] ([id number])[address] [place] [address] Monocytes/100 WBC (Bld) 9.1 % Normal [facility] Comment on above: Performed By: #### Shahla POOLE, CMP, , 2776-04 ####[facility] ([id number])[address] [place] [address] Neutrophils/100 WBC (Bld) 57.5 % Normal [facility] Comment on above: Performed By: #### Shahla POOLE, CMP, , 2776-04 ####[facility] ([id number])[address] [place] [address] 12172 Platelet mean volume (Bld) [Entitic vol] 8.9 fL Normal 7-12 [facility] Comment on above: Performed By: #### Shahla POOLE, CMP, , 2776-04 ####[facility] ([id number])[address] [place] [address] 82981 Platelets (Bld) [#/Vol] 328 10*3/uL Normal 150-450 [facility] Comment on above: Performed By: #### Shahla POOLE, CMP, , 2776-04 ####[facility] ([id number])[address] [place] [address] 44227 RBC COUNT 3.77 X10E12/L Low 3.80-5.20 [facility] Comment on above: Performed By: #### Shahla POOLE, CMP, , 2776-04 ####[facility] ([id number])[address] [place] [address] WBC (Bld) [#/Vol] 7.8 10*3/uL Normal 4.0-11.0 [facility] Comment on above: Performed By: #### C VIRGILIO, EDEL, 72826-4, 2777-1 ####[facility] ([id number])[address] [place] [address] 71561 CBC auto differentialon 09-23 Basophils (Bld) [#/Vol] 0.1 10*3/uL [facility] Basophils/100 WBC (Bld) 1.0 % P [facility] Eosinophils (Bld) [#/Vol] 0.4 10*3/uL [facility] Eosinophils/100 WBC (Bld) 5.1 % [facility] Erythrocyte distribution width (RBC) [Ratio] 15.0 % 11.5 - 15.0 % [facility] Hematocrit (Bld) [Volume fraction] 31.7 % Low 35 - 47 % [facility] Hemoglobin (Bld) [Mass/Vol] 10.5 g/dL Low 11.7 - 15.5 g/dL [facility] Interpretation and review of laboratory results Abnormal [facility] Lymphocytes (Bld) [#/Vol] 2.1 10*3/uL [facility] Lymphocytes/100 WBC (Bld) 27.3 % [facility] MCH (RBC) [Entitic mass] 27.7 pg 27 - 34 pg [facility] [facility] MCHC (RBC) [Mass/Vol] 33.1 g/dL 32 - 3 6 g/dL [facility] MCV (RBC) [Entitic vol] 84 fL 80 - 100 fL [facility] Monocytes (Bld) [#/Vol] 0.7 10*3/uL [facility] Monocytes/100 WBC (Bld) 9.1 % [facility] Neutrophils (Bld) [#/Vol] 4.5 10*3/uL [facility] Neutrophils/100 WBC (Bld) 57.5 % [facility] Platelet mean volume (Bld) [Entitic vol] 8.9 fL 7 - 12 fL [facility] Platelets (Bld) [#/Vol] 328 10*3/uL [facility] RBC (Bld) [#/Vol] 3.77 10*6/uL Low [facility] WBC corrected for nucl RBC Auto (Bld) [#/Vol] 7.8 [facility] COMPREHENSIVE METABOLIC PANE Phu 10-18-2023 Albumin [Mass/Vol] 3.1 g/dL Low 3.2-5.3 [facility] Comment on above: Performed By: #### C BCA, CMP, , 2776- ####[facility] ([id number])[address] [place] [address] 11120 ALP [Catalytic activity/Vol] 57 U/L Normal 39-130 [facility] Comment on above: Performed By: #### Shahla BCA, CMP, , 2776- ####[facility] ([id number])[address] [place] [address] 63571 ALT [Catalytic activity/Vol] 10 U/L Normal 0-31 [facility] Comment on above: Performed By: #### Shahla BCA, CMP, , 2776- ####[facility] ([id number])[address] [place] [address] 54015 Anion gap [Moles/Vol] 11 mmol/L Normal 5-15 [facility] Comment on above: Performed By: #### C BCA, CMP, , 2776- ####[facility] ([id number])[address] [place] [address] 26051 AST [Catalytic activity/Vol] 14 U/L Normal 0-41 [facility] Comment on above: Performed By: #### C BCA, CMP, , 2776- ####[facility] ([id number])[address] [place] [address] 15348 Bilirubin [Mass/Vol] 0.7 mg/dL Normal 0.3-1.2 [facility] Comment on above: Performed By: #### C BCA, CMP, , 2776-04 ####[facility] ([id number])[address] [place] [address] 49129 Calcium [Mass/Vol] 9.3 mg/dL Normal 8.5-10.5 [facility] Comment on above: Performed By: #### C BCA, CMP, , 2776-04 ####[facility] ([id number])[address] [place] [address] 99857 Chloride [Moles/Vol] 97 mmol/L Low 98-109 [facility] Comment on above: Performed By: #### C BCA, CMP, , 2776-04 ####[facility] ([id number])[address] [place] [address] 09566 CO2 [Moles/Vol] 29 mmol/L Normal 22-32 [facility] Comment on above: Performed By: #### C BCA, CMP, , 2776-04 ####[facility] ([id number])[address] [place] [address] 48163 Creatinine [Mass/Vol] 2.98 mg/dL High 0.40-1.00 [facility] Comment on above: Result Comment: METH OD TRACEABLE TO IDMS STANDARD Performed By: #### C BCA, CMP, , 2776-04 ####[facility] ([id number])[address] [place] [address] 76814 GFR/1.73 sq M.predicted among non-blacks MDRD (S/P/Bld) [Vol rate/Area] 18 mL/min/{1.73_m2} Low >59 [facility] Comment on above: Result Comment: Reported eGFR is based on the CKD-EPI 2020 equation that does not use a race coefficient. Performed By: #### C EDEL POOLE, , 2776-04 ####[facility] ([id number])[address] [place] [address] 15203 Glucose [Mass/Vol] 92 mg/dL Normal 65-99 [facility] Comment on above: Performed By: #### C VIRGILIO [facility], , 2776-04 ####[facility] ([id number])[address] [place] [address] 16780 Potassium [Moles/Vol] 4.2 mmol/L Normal 3.5-5.0 [facility] Comment on above: Performed By: #### C EDEL POOLE, , 2776-04 ####[facility] ([id number])[address] [place] [address] 28859 Protein [Mass/Vol] 6.0 g/dL Normal 6.0-8.0 [facility] Comment on above: Performed By: #### C VIRGILIO [facility], , 2776-04 ####[facility] ([id number])[address] [place] [address] 12027 Sodium [Moles/Vol] 137 mmol/L Normal 134-146 [facility] Comment on above: Performed By: #### C EDEL POOLE, , 2776-04 ####[facility] ([id number])[address] [place] [address] [place] [address] Urea nitrogen [Mass/Vol] 37 mg/dL High 5-23 [facility] Comment on above: Performed By: #### C VIRGILIO CMP, , 2776-04 ####[facility] ([id number])[address] [place] [address] 33469 Calcium.ionized (Bld) [Moles /Vol]on 10-18-2023 [facility] PORTABLE ICA 4.7 mg/dL Normal 4.5-5.3 [facility] Comment on above: Performed By: #### 8 9579-7 #### [facility] ([id number]) [address] [place] [address], [place] [address] Clinical Pathology Reviewon 10-18-2023 [facility] [address] [place] [address] Clinical Pathology Report Patient Name:DANIELLE MONTANA:1965 (Age: 58)Gender:FTaken:09/234Reported:hysician(s):Soniya Flores MD ([phone])Copy To: Rec. 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 No monoclonal protein identified. Report Electronically Signed Out df/4Dnicci Gomez MD Interpretation performed at [facility], [address] [place] [address], License number: [id number]. Clinical History D17.9, I16.0, E87.6. URINE PROTEIN ELECTROPHORESIS SAMPLE NUMBER: [id number] RELATIVE ELECTROPHORETIC CONCENTRATIONS (%) ? 100.0 Urine Protein 1410 mg/L (Electrophoretic gels and densitometric tracings on file in lab.) Specimen(s) Received Urine Protein Electrophoresis Fee Codes(s): 1; 33414-43 COPATH [facility] [employer] Comprehensive metabolic pane phu 10-18-2023 Albumin [Mass/Vol] 3.1 g/dL Low 3.2 - 5.3 g/dL [facility] [employer] [facility] ALP [Catalytic activity/Vol] 57 U/L 39 - 130 U/L [facility] [employer] [facility] ALT No additional P-5'-P [Catalytic activity/Vol] 10 U/L 0 - 31 U/L [facility] Anion gap [Moles/Vol] 11 mmol/L 5 - 15 mmol/L [facility] AST [Catalytic activity/Vol] 14 U/L 0 - 41 U/L [facility] Bilirubin [Mass/Vol] 0.7 mg/dL 0.3 - 1 .2 mg/dL [facility] Calcium [Mass/Vol] 9.3 mg/dL 8.5 - 10. 5 mg/dL [facility] Chloride [Moles/Vol] 97 mmol/L Low 98 - 10 9 mmol/L [facility] CO2 [Moles/Vol] 29 mmol/L 22 - 32 mmol/L [facility] Creatinine [Mass/Vol] 2.98 mg/dL High 0.40 - 1.00 mg/dL [facility] Comment on above: METHOD TRACEABLE TO [facility] STANDARD eGFR (CKD-EPI)non-race dependent 18 Low - PINF [facility] Comment on above: Reported eGFR is based on the CKD-EPI 2020 equation that does not use a race coefficient. Glucose [Mass/Vol] 92 mg/dL 65 - 99 mg/dL [facility] Interpretation and review of laboratory results Abnormal [facility] Potassium [Moles/Vol] 4.2 mmol/L 3.5 - 5.0 mmol/L [facility] Protein [Mass/Vol] 6.0 g/dL 6.0 - 8.0 g/dL [facility] Sodium [Moles/Vol] 137 mmol/L 134 - 146 mmol/L [facility] Urea nitrogen [Mass/Vol] 37 mg/dL High 5 - 23 mg/dL [facility] MAGNESIUMon 10-18-2023 Magnesium [Mass/Vol] 2.0 mg/dL Normal 1.8-2.6 [facility] Comment on above: Performed By: #### C BCA, CMP, 76500-2, 2777-1 ####[facility] ([id number])[address] [place] [address] Magnesiumon 10-18-2023 Magnesium [Mass/Vol] 2.0 mg/dL 1.8 - 2 .6 mg/dL [facility] Myeloperoxidase IgG Qn (S)on 10-18-2023 Myeloperoxidase IgG >8.0 High <0.4 (Negative) [facility] Comment on above: Result Comment: NOTE Interpretation: Positive (>=1.0) Test Performed by: [facility] [address] [place] [address] [employer] Field Service Technician: Ledy Son Ph.D.; CLIA# [id number] Performed By: #### 8 9579-7 #### [facility] ([id number]) [address] [place] [address] 65228 No Panel Informationon 10-17 [facility] PHOSPHORUSon 10-18-2023 Phosphate [Mass/Vol] 5.1 mg/dL High 2.4-4.9 [facility] Comment on above: Performed By: #### C VIRGILIO, CMP, 64539-6, 2777-1 ####[facility] ([id number])[address] [place] [address] 16186 POCT Ionized Calciumon 10-17 Calcium.ionized (Bld) [Moles/Vol] 4.7 mg/dL 4.5 - 5.3 mg/dL [facility] Phosphate [Mass/Vol]on 10-17 Interpretation and review of laboratory results Abnormal [facility] Phosphoruson 10-18-2023 Phosphate [Mass/Vol] 5.1 mg/dL High 2.4 - 4 .9 mg/dL [facility] CBC AND AUTO DIFFon 10-17-19 ABSOLUTE BASOPHIL 0.1 X10E9/L Normal 0.0-0.2 [facility] Comment on above: Performed By: #### C BCA, BMP, 72353-3, 33006-8, 25037-0 #### [facility] ([id number]) [address] [place] [address] 14211 ABSOLUTE NEUTROPHIL 4.9 X10E9/L Normal 1.5-6.6 [facility] Comment on above: Performed By: #### C BCA, BMP, 99360-7, 10540-6, 19722-4 #### [facility] ([id number]) [address] [place] [address] 81608 Basophils/100 WBC (Bld) 0.7 % Normal [facility] Comment on above: Performed By: #### C VIRGILIO, BMP, , 12869-5, 11856-6 #### [facility] ([id number]) [address] [place] [address] 92284 Eosinophils (Bld) [#/Vol] 0.3 10*3/uL Normal 0.0-0.4 [facility] Comment on above: Performed By: #### C VIRGILIO, MARIO, , 31008-7, 72076-6 #### [facility] ([id number]) [address] [place] [address] 64986 Eosinophils/100 WBC (Bld) 4.3 % Normal [facility] Comment on above: Performed By: #### C VIRGILIO, BMP, , 62057-5, 56488-9 #### [facility] ([id number]) [address] [place] [address] 78682 Erythrocyte distribution width (RBC) [Ratio] 14.7 % Normal 11.5-15.0 [facility] Comment on above: Performed By: #### C VIRGILIO, MARIO, , 31658-2, 78074-9 #### [facility] ([id number]) [address] [place] [address] 68331 Hematocrit (Bld) [Volume fraction] 30.3 % Low 35-47 [facility] Comment on above: Performed By: #### C VIRGILIO, BMP, , 86842-3, 32262-3 #### [facility] ([id number]) [address] [place] [address] 00718 Hemoglobin (Bld) [Mass/Vol] 10.1 g/dL Low 11.7-15.5 [facility] Comment on above: Performed By: #### C BCA, BMP, , 47226-1, 45148-2 #### [facility] ([id number]) [address] [place] [address] 77166 Lymphocytes (Bld) [#/Vol] 1.9 10*3/uL Normal 1.0-3.5 [facility] Comment on above: Performed By: #### C BCA, BMP, , 92393-0, 82496-1 #### [facility] ([id number]) [address] [place] [address] 14219 Lymphocytes/100 WBC (Bld) 24.6 % Normal [facility] Comment on above: Performed By: #### C BCA, BMP, , 34455-9, 40966-5 #### [facility] ([id number]) [address] [place] [address] 88151 MCH (RBC) [Entitic mass] 27.9 pg Normal 27-34 [facility] Comment on above: Performed By: #### C BCA, BMP, , 99897-2, 72158-6 #### [facility] ([id number]) [address] [place] [address] 71958 MCHC (RBC) [Mass/Vol] 33.4 g/dL Normal 32-36 [facility] Comment on above: Performed By: #### C BCA, BMP, , 36742-9, 05608-0 #### [facility] ([id number]) [address] [place] [address] 91817 MCV (RBC) [Entitic vol] 84 fL Normal 80-100 [facility] Comment on above: Performed By: #### C BCA, BMP, , 47803-0, 94982-8 #### [facility] ([id number]) [address] [place] [address] 89686 Monocytes (Bld) [#/Vol] 0.6 10*3/uL Normal 0-0.9 [facility] Comment on above: Performed By: #### C VIRGILIO, BMP, 46317-7, 24806-0, 94166-7 #### [facility] ([id number]) [address] [place] [address] 01347 Monocytes/100 WBC (Bld) 8.3 % Normal [facility] Comment on above: Performed By: #### C VIRGILIO, BMP, 25999-3, 78464-2, 80879-4 #### [facility] ([id number]) [address] [place] [address] 18778 Neutrophils/100 WBC (Bld) 62.1 % Normal [facility] Comment on above: Performed By: #### Shahla POOLE, BMP, 32796-1, 12513-0, 12896-3 #### [facility] ([id number]) [address] [place] [address] 93756 Platelet mean volume (Bld) [Entitic vol] 9.0 fL Normal 7-12 [facility] Comment on above: Performed By: #### C VIRGILIO, BMP, 38523-5, 19969-1, 56399-3 #### [facility] ([id number]) [address] [place] [address] 81723 Platelets (Bld) [#/Vol] 278 10*3/uL Normal 150-450 [facility] Comment on above: Performed By: #### Shahla POOLE, BMP, 79382-1, 17380-2, 99674-1 #### [facility] ([id number]) [address] [place] [address] 35327 RBC COUNT 3.62 X10E12/L Low 3.80-5.20 [facility] Comment on above: Performed By: #### C BCA, BMP, 00588-5, 67047-2, 42984-3 #### [facility] ([id number]) [address] [place] [address] WBC (Bld) [#/Vol] 7.9 10*3/uL Normal 4.0-11.0 [facility] Comment on above: Performed By: #### C VIRGILIO, BMP, 20004-9, 97798-7, 40270-3 #### [facility] ([id number]) [address] [place] [address] 39515 CBC auto differentialon 09-23 Basophils (Bld) [#/Vol] 0.1 10*3/uL [facility] Basophils/100 WBC (Bld) 0.7 % [facility] Eosinophils (Bld) [#/Vol] 0.3 10*3/uL [facility] Eosinophils/100 WBC (Bld) 4.3 % [facility] Erythrocyte distribution width (RBC) [Ratio] 14.7 % 11.5 - 15.0 % [facility] Hematocrit (Bld) [Volume fraction] 30.3 % Low 35 - 47 % [facility] Hemoglobin (Bld) [Mass/Vol] 10.1 g/dL Low 11.7 - 15.5 g/dL [facility] Interpretation and review of laboratory results Abnormal [facility] Lymphocytes (Bld) [#/Vol] 1.9 10*3/uL [facility] Lymphocytes/100 WBC (Bld) 24.6 % [facility] MCH (RBC) [Entitic mass] 27.9 pg 27 - 34 pg [facility] MCHC (RBC) [Mass/Vol] 33.4 g/dL 32 - 3 6 g/dL [facility] MCV (RBC) [Entitic vol] 84 fL 80 - 100 fL [facility] Monocytes (Bld) [#/Vol] 0.6 10*3/uL [facility] Monocytes/100 WBC (Bld) 8.3 % [facility] Neutrophils (Bld) [#/Vol] 4.9 10*3/uL [facility] Neutrophils/100 WBC (Bld) 62.1 % [facility] Platelet mean volume (Bld) [Entitic vol] 9.0 fL 7 - 12 fL [facility] Platelets (Bld) [#/Vol] 278 10*3/uL [facility] RBC (Bld) [#/Vol] 3.62 10*6/uL Low [facility] WBC corrected for nucl RBC Auto (Bld) [#/Vol] 7.9 [facility] COMPREHENSIVE METABOLIC PANE Phu 10-17-2023 Albumin [Mass/Vol] 3.0 g/dL Low 3.2-5.3 [facility] Comment on above: Performed By: #### C BCA, BMP, 16638-7, 63002-4, 39757-6 #### [facility] ([id number]) [address] [place] [address] 83315 ALP [Catalytic activity/Vol] 56 U/L Normal 39-130 [facility] Comment on above: Performed By: #### Shahla POOLE, BMP, 23157-1, 69775-9, 90550-8 #### [facility] ([id number]) [address] [place] [address] 73283 ALT [Catalytic activity/Vol] 10 U/L Normal 0-31 [facility] Comment on above: Performed By: #### Shahla BCA, BMP, 88296-2, 96834-1, 82943-4 #### [facility] ([id number]) [address] [place] [address] 25011 Anion gap [Moles/Vol] 10 mmol/L Normal 5-15 [facility] Comment on above: Performed By: #### Shahla BCA, BMP, 93530-3, 12041-2, 52049-8 #### [facility] ([id number]) [address] [place] [address] 40597 AST [Catalytic activity/Vol] 14 U/L Normal 0-41 [facility] Comment on above: Performed By: #### C BCA, BMP, 96621-8, 15642-0, 98880-6 #### [facility] ([id number]) [address] [place] [address] 75617 Bilirubin [Mass/Vol] 0.7 mg/dL Normal 0.3-1.2 [facility] Comment on above: Performed By: #### C BCA, BMP, 54064-9, 29170-2, 63159-2 #### [facility] ([id number]) [address] [place] [address] 54968 Calcium [Mass/Vol] 8.8 mg/dL Normal 8.5-10.5 [facility] Comment on above: Performed By: #### C BCA, BMP, 17280-1, 35336-3, 45443-5 #### [facility] ([id number]) [address] [place] [address] 04015 Chloride [Moles/Vol] 101 mmol/L Normal 98-109 [facility] Comment on above: Performed By: #### C BCA, BMP, 95693-0, 96396-2, 74074-2 #### [facility] ([id number]) [address] [place] [address] 81633 CO2 [Moles/Vol] 28 mmol/L Normal 22-32 [facility] Comment on above: Performed By: #### C BCA, BMP, 91337-8, 64772-2, 32213-4 #### [facility] ([id number]) [address] [place] [address] 73877 Creatinine [Mass/Vol] 2.77 mg/dL High 0.40-1.00 [facility] Comment on above: Result Comment: METH OD TRACEABLE TO IDMS STANDARD Performed By: #### C BCA, BMP, 98183-9, 49984-0, 45363-5 #### [facility] ([id number]) [address] [place] [address] 32848 GFR/1.73 sq M.predicted among non-blacks MDRD (S/P/Bld) [Vol rate/Area] 19 mL/min/{1.73_m2} Low >59 [facility] Comment on above: Result Comment: Reported eGFR is based on the CKD-EPI 2020 equation that does not use a race coefficient. Performed By: #### C BCA, BMP, 68298-0, 70249-3, 44118-8 #### [facility] ([id number]) [address] [place] [address] 05701 Glucose [Mass/Vol] 97 mg/dL Normal 65-99 [facility] Comment on above: Performed By: #### C BCA, BMP, 51695-3, 08468-8, 67963-1 #### [facility] ([id number]) [address] [place] [address] 34127 Potassium [Moles/Vol] 3.6 mmol/L Normal 3.5-5.0 [facility] Comment on above: Performed By: #### C BCA, BMP, 69487-7, 46741-0, 11816-2 #### [facility] ([id number]) [address] [place] [address] 14800 Protein [Mass/Vol] 5.7 g/dL Low 6.0-8.0 [facility] Comment on above: Performed By: #### C BCA, BMP, 50938-1, 20112-4, 02282-4 #### [facility] ([id number]) [address] [place] [address] 15558 Sodium [Moles/Vol] 139 mmol/L Normal 134-146 [facility] Comment on above: Performed By: #### C BCA, BMP, 55167-8, 63172-0, 30234-8 #### [facility] ([id number]) [address] [place] [address] Urea nitrogen [Mass/Vol] 26 mg/dL High 5-23 [facility] Comment on above: Performed By: #### C BCA, BMP, 64067-0, 99476-2, 11925-8 #### [facility] ([id number]) [address] [place] [address] Calcium.ionized (Bld) [Moles /Vol]on 10-17-2023 [facility] PORTABLE ICA 4.7 mg/dL Normal 4.5-5.3 [facility] Comment on above: Performed By: #### C BCA, BMP, 90585-0, 18311-5, 06532-5 #### [facility] ([id number]) [address] [place] [address] Comprehensive metabolic pane phu 10-17-2023 Albumin [Mass/Vol] 3.0 g/dL Low 3.2 - 5.3 g/dL [facility] ALP [Catalytic activity/Vol] 56 U/L 39 - 130 U/L [facility] ALT No additional P-5'-P [Catalytic activity/Vol] 10 U/L 0 - 31 U/L [facility] Anion gap [Moles/Vol] 10 mmol/L 5 - 15 mmol/L [facility] AST [Catalytic activity/Vol] 14 U/L 0 - 41 U/L [facility] Bilirubin [Mass/Vol] 0.7 mg/dL 0.3 - 1 .2 mg/dL [facility] Calcium [Mass/Vol] 8.8 mg/dL 8.5 - 10. 5 mg/dL [facility] Chloride [Moles/Vol] 101 mmol/L 98 - 10 9 mmol/L [facility] CO2 [Moles/Vol] 28 mmol/L 22 - 32 mmol/L [facility] Creatinine [Mass/Vol] 2.77 mg/dL High 0.40 - 1.00 mg/dL [facility] Comment on above: METHOD TRACEABLE TO [employer]MS STANDARD eGFR (CKD-EPI)non-race dependent 19 Low - PINF [facility] Comment on above: Reported eGFR is based on the CKD-EPI 2020 equation that does not use a race coefficient. Glucose [Mass/Vol] 97 mg/dL 65 - 99 mg/dL [facility] Interpretation and review of laboratory results Abnormal [facility] Potassium [Moles/Vol] 3.6 mmol/L 3.5 - 5.0 mmol/L [facility] Protein [Mass/Vol] 5.7 g/dL Low 6.0 - 8.0 g/dL [facility] Sodium [Moles/Vol] 139 mmol/L 134 - 146 mmol/L [facility] Urea nitrogen [Mass/Vol] 26 mg/dL High 5 - 23 mg/dL [facility] Creatinine, urine, 24 houron 10-17-2023 Creatinine (24H U) [Mass/Time] 1.38 [facility] FECAL OCCULT BLOODon 024 Hemoglobin.gastrointesti nal Ql (Stl) Negative Normal NEG [facility] Comment on above: Performed By: #### 2 335-8 ####[facility] ([id number])[address] [place] [address] 55269 Glomerular Basement Membrane IgG, Serumon 10-17-2023 Basement membrane IgG Qn (S) U <1.0 (Negative) U [facility] Comment on above: NOTE Test Performed by: [id number] [place] [address] [employer] Field Service Technician: Ledy Son Ph.D.; CLIA# [id number] Hemoglobin.gastrointestinal Ql (Stl)on 10-17-2023 [facility] MAGNESIUMon 10-17-2023 Magnesium [Mass/Vol] 2.0 mg/dL Normal 1.8-2.6 [facility] Comment on above: Performed By: #### C BCA, BMP, 50974-8, 35176-4, 31990-8 #### [facility] ([id number]) [address] [place] [id number] Magnesiumon 10-17-2023 Magnesium [Mass/Vol] 2.0 mg/dL 1.8 - 2 .6 mg/dL [facility] Myeloperoxidase Antibodies, IgG, Serumon 10-17-2023 Myeloperoxidase IgG Qn (S) U High <0.4 (Negative) U [facility] [employer] [facility] Comment on above: NOTE Interpretation: Positive (>=1.0) Test Performed by: [facility] [address] [place] [address] [employer] Field Service Technician: Ledy Son Ph.D.; CLIA# [id number] Myeloperoxidase IgG Qn (S)on 10-17-2023 Interpretation and review of laboratory results Abnormal [facility] NM Lung Ventilationon 2023 Clinical history:Elevated d-dimer and shortness of breath [...] Tony Lowery MD on 10/17/2023 9:13 AM [facility] Tony Lowery MD - 10/17/2023 Clinical history:Elevated d-dimer and shortness of breath [...] Tony Lowery MD on 10/17/2023 9:13 AM [facility] (narrative) [facility] [place] Lung VentilationOrdered B y: Tony Lowery on 10-17-2023 [facility] Work Phone: NM VENTILATION PERFUSION CHAZ G SCANon 10-17-2023 [...] Lowery MD on 10/17/2023 9:13 AM Normal [facility] No Panel Informationon 10-16 [facility] Occult blood x 1, stoolon Hemoglobin.gastrointesti nal Ql (Stl) Negative Negative^N egative [facility] PHOSPHORUSon 10-17-2023 Phosphate [Mass/Vol] 4.1 mg/dL Normal 2.4-4.9 [facility] Comment on above: Performed By: #### C BCA, BMP, 14058-4, 40057-3, 93082-6 #### [facility] ([id number]) [address] [place] [address] 55679 POCT Ionized Calciumon 10-16 Calcium.ionized (Bld) [Moles/Vol] 4.7 mg/dL 4.5 - 5.3 mg/dL [facility] POTASSIUMon 10-17-2023 Potassium [Moles/Vol] 4.2 mmol/L Normal 3.5-5.0 [facility] Comment on above: Performed By: #### 2 823-3 ####[facility] ([id number])[address] [place] [address] 13370 Phosphate [Mass/Vol]on 10-16 [facility] Phosphoruson 10-17-2023 Phosphate [Mass/Vol] 4.1 mg/dL 2.4 - 4 .9 mg/dL [facility] Potassiumon 10-17-2023 Potassium [Moles/Vol] 4.2 mmol/L 3.5 - 5.0 mmol/L [facility] Potassium [Moles/Vol]on 09-23 [facility] Protein, urine, 24 houron Interpretation and review of laboratory results Abnormal [facility] Protein (24H U) [Mass/Time] 6380 High [facility] Proteinase 3 IgGon Proteinase 3 IgG IA Qn 0.2 U <0.4 (Negative) [facility] Comment on above: NOTE Test Performed by: [facility] [address] [place] [address] [employer] Field Service Technician: Ledy Son Ph.D.; CLIA# [id number] THYROID PROFILEon 10-17-2023 Free T4 [Mass/Vol] 1.19 ng/dL Normal 0.61-1.60 [facility] Comment on above: Performed By: #### C MARIO POOLE, 84276-3, 02301-6, 66218-0 #### [facility] ([id number]) [address] [place] [address] 67262 TSH 2.17 uIU/mL Normal 0.49-4.67 [facility] Comment on above: Performed By: #### C MARIO POOLE, 16277-6, 80635-4, 80916-0 #### [facility] ([id number]) [address] [place] [address] 54745 Thyroid profile includes TSH FT4on 10-17-2023 Free T4 [Mass/Vol] 1.19 ng/dL 0.61 - 1.60 ng/dL [facility] TSH Qn 2.17 m[IU]/L [facility] US.doppler Lower extremity v ein - bilateralon 10-17-2023 Right: Limited visualization of veins in the thigh and calf due to edema and body habitus. Remaining visualized deep venous segments are compressible with spontaneous phasic spectral Doppler waveforms. Superficial veins are compressible. Left: Limited visualization of veins in the thigh and calf due to edema and body habitus. Remaining visualized deep venous segments are compressible with spontaneous phasic spectral Doppler waveforms. Superficial veins are compressible. General: In-patient, bedside examination. Conclusions: BILATERAL: NO EVIDENCE of deep or superficial vein thrombosis of the lower extremities. PM CARDIOVASCULAR Jong Haddad MD - 10/17/2023 Right: Limited visualization of veins in the thigh and calf due to edema and body habitus. Remaining visualized deep venous segments are compressible with spontaneous phasic spectral Doppler waveforms. Superficial veins are compressible. Left: Limited visualization of veins in the thigh and calf due to edema and body habitus. Remaining visualized deep venous segments are compressible with spontaneous phasic spectral Doppler waveforms. Superficial veins are compressible. General: In-patient, bedside examination. Conclusions: BILATERAL: NO EVIDENCE of deep or superficial vein thrombosis of the lower extremities. [facility] [employer] [facility] US.doppler Lower extremity v ein - bilateralOrdered By: Jong Haddad on 10-17-2023 [facility] Work Phone: Urine Volume and Timeon 09-23 Specimen volume Unsp time (U) 4400 mL [facility] Urine output 24 hour 24 h [facility] 24 HR URINE CREATININEon URINE CREATININE 1.38 g/24h Normal 0.80-1.80 [facility] Comment on above: Performed By: #### U CR, UPRO ####[facility] ([id number])[address], [address] [place] [address] 24 HR URINE TOTAL PROTEINon 10-16-2023 URINE TOTAL PROTEIN 6380 mg/24h High 0-150 [facility] Comment on above: Performed By: #### U CR, UPRO ####[facility] ([id number])[address], [place] [address] SAUL Screen w/ Reflexon 10-15 Nuclear Ab IA Ql (S) Negative Negativ e^N egative [facility] Comment on above: Testing performed using multiplex flow immunoassay. Eleven different antigens associated with systemic autoimmune diseases (dsDNA,Sm,Sm/QUALITY CONTROL MANAGER,QUALITY CONTROL MANAGER,Chromatin, SSA,SSB,Yoly-1,Scl70,Ribo P,Centromere B) are included in this screening test. CBC AND AUTO DIFFon 10-15- 24 ABSOLUTE BASOPHIL 0.0 X10E9/L Normal 0.0-0.2 [facility] Comment on above: Performed By: #### C VIRGILIO, BMP, 58446-4, 10842-1, 57174-4 #### [facility] ([id number]) [address] [place] [address] 61794 ABSOLUTE NEUTROPHIL 4.9 X10E9/L Normal 1.5-6.6 [facility] Comment on above: Performed By: #### C VIRGILIO, BMP, 77274-1, 25096-5, 83835-4 #### [facility] ([id number]) [address] [place] [address] 89794 Basophils/100 WBC (Bld) 0.6 % Normal [facility] Comment on above: Performed By: #### Shahla POOLE, BMP, , 65629-4, 59667-2 #### [facility] ([id number]) [address] [place] [address] 73061 Eosinophils (Bld) [#/Vol] 0.3 10*3/uL Normal 0.0-0.4 [facility] Comment on above: Performed By: #### Shahla POOLE, BMP, , 76663-7, 29886-4 #### [facility] ([id number]) [address] [place] [address] 66296 Eosinophils/100 WBC (Bld) 4.2 % Normal [facility] Comment on above: Performed By: #### C VIRGILIO, BMP, , 38648-4, 01783-3 #### [facility] ([id number]) [address] [place] [address] 77917 Erythrocyte distribution width (RBC) [Ratio] 14.8 % Normal 11.5-15.0 [facility] Comment on above: Performed By: #### C VIRGILIO, BMP, , 51261-6, 11276-5 #### [facility] ([id number]) [address] [place] [address] 95394 Hematocrit (Bld) [Volume fraction] 28.5 % Low 35-47 [facility] Comment on above: Performed By: #### C BCA, BMP, , 89901-9, 97873-5 #### [facility] ([id number]) [address] [place] [address] 99018 Hemoglobin (Bld) [Mass/Vol] 9.5 g/dL Low 11.7-15.5 [facility] Comment on above: Performed By: #### C VIRGILIO, BMP, , 88210-0, 49359-6 #### [facility] ([id number]) [address] [place] [address] 72308 Lymphocytes (Bld) [#/Vol] 2.1 10*3/uL Normal 1.0-3.5 [facility] Comment on above: Performed By: #### C VIRGILIO, BMP, , 99671-0, 33481-5 #### [facility] ([id number]) [address] [place] [address] 73312 Lymphocytes/100 WBC (Bld) 26.6 % Normal [facility] Comment on above: Performed By: #### C BCA, BMP, , 51351-2, 46983-0 #### [facility] ([id number]) [address] [place] [address] 49849 MCH (RBC) [Entitic mass] 27.7 pg Normal 27-34 [facility] Comment on above: Performed By: #### C BCA, BMP, , 24078-5, 72589-7 #### [facility] ([id number]) [address] [place] [address] 78265 MCHC (RBC) [Mass/Vol] 33.6 g/dL Normal 32-36 [facility] Comment on above: Performed By: #### C BCA, BMP, 78523-1, 55070-1, 02914-4 #### [facility] ([id number]) [address] [place] [address] 20572 MCV (RBC) [Entitic vol] 83 fL Normal 80-100 [facility] Comment on above: Performed By: #### C VIRGILIO, BMP, 94901-9, 09574-4, 80102-0 #### [facility] ([id number]) [address] [place] [address] 51951 Monocytes (Bld) [#/Vol] 0.7 10*3/uL Normal 0-0.9 [facility] Comment on above: Performed By: #### Shahla POOLE, BMP, 14516-9, 03339-1, 51071-2 #### [facility] ([id number]) [address] [place] [address] 10253 Monocytes/100 WBC (Bld) 8.2 % Normal [facility] Comment on above: Performed By: #### C VIRGILIO, BMP, 50991-0, 05618-5, 26631-2 #### [facility] ([id number]) [address] [place] [address] 95283 Neutrophils/100 WBC (Bld) 60.4 % Normal [facility] Comment on above: Performed By: #### C BCA, BMP, 77816-4, 90815-4, 11809-0 #### [facility] ([id number]) [address] [place] [address] 14613 Platelet mean volume (Bld) [Entitic vol] 8.9 fL Normal 7-12 [facility] Comment on above: Performed By: #### C BCA, BMP, 22186-2, 17614-8, 07510-3 #### [facility] ([id number]) [address] [place] [address] 33957 Platelets (Bld) [#/Vol] 252 10*3/uL Normal 150-450 [facility] Comment on above: Performed By: #### MARIO Gale BCA, 38244-6, 20009-8, 54141-4 #### [facility] ([id number]) [address] [place] [address] 90221 RBC COUNT 3.45 X10E12/L Low 3.80-5.20 [facility] Comment on above: Performed By: #### MARIO Gale BCA, 76388-5, 13513-2, 48424-3 #### [facility] ([id number]) [address] [place] [address] 45179 WBC (Bld) [#/Vol] 8.0 10*3/uL Normal 4.0-11.0 [facility] Comment on above: Performed By: #### Shahla POOLE, MARIO, 97610-8, 53026-4, 11419-7 #### [facility] ([id number]) [address] [place] [address] 35211 CBC auto differentialon 09-23 Basophils (Bld) [#/Vol] 0.0 10*3/uL [facility] Basophils/100 WBC (Bld) 0.6 % [facility] Eosinophils (Bld) [#/Vol] 0.3 10*3/uL [facility] Eosinophils/100 WBC (Bld) 4.2 % [facility] Erythrocyte distribution width (RBC) [Ratio] 14.8 % 11.5 - 15.0 % [facility] Hematocrit (Bld) [Volume fraction] 28.5 % Low 35 - 47 % [facility] Hemoglobin (Bld) [Mass/Vol] 9.5 g/dL Low 11.7 - 15.5 g/dL [facility] Interpretation and review of laboratory results Abnormal [facility] Lymphocytes (Bld) [#/Vol] 2.1 10*3/uL [facility] Lymphocytes/100 WBC (Bld) 26.6 % [facility] MCH (RBC) [Entitic mass] 27.7 pg 27 - 34 pg [facility] MCHC (RBC) [Mass/Vol] 33.6 g/dL 32 - 3 6 g/dL [facility] MCV (RBC) [Entitic vol] 83 fL 80 - 100 fL [facility] Monocytes (Bld) [#/Vol] 0.7 10*3/uL [facility] Monocytes/100 WBC (Bld) 8.2 % P [facility] Neutrophils (Bld) [#/Vol] 4.9 10*3/uL [facility] Neutrophils/100 WBC (Bld) 60.4 % [facility] Platelet mean volume (Bld) [Entitic vol] 8.9 fL 7 - 12 fL [facility] Platelets (Bld) [#/Vol] 252 10*3/uL [facility] RBC (Bld) [#/Vol] 3.45 10*6/uL Low [facility] WBC corrected for nucl RBC Auto (Bld) [#/Vol] 8.0 [facility] COMPREHENSIVE METABOLIC PANE Phu 10-16-2023 Albumin [Mass/Vol] 2.7 g/dL Low 3.2-5.3 [facility] Comment on above: Performed By: #### C MARIO POOLE, 51495-7, 10505-1, 44502-9 #### [facility] ([id number]) [address] [place] [address] 58236 ALP [Catalytic activity/Vol] 55 U/L Normal 39-130 [facility] Comment on above: Performed By: #### C VIRGILIO BMP, 60230-8, 83591-7, 80804-7 #### [facility] ([id number]) [address] [place] [address] 96685 ALT [Catalytic activity/Vol] 9 U/L Normal 0-31 [facility] Comment on above: Performed By: #### C BCA, BMP, 76291-5, 79626-3, 96814-7 #### [facility] ([id number]) [address] [place] [address] 03982 Anion gap [Moles/Vol] 8 mmol/L Normal 5-15 [facility] Comment on above: Performed By: #### C BCA, BMP, 85164-8, 33530-9, 82989-1 #### [facility] ([id number]) [address] [place] [address] 86097 AST [Catalytic activity/Vol] 13 U/L Normal 0-41 [facility] Comment on above: Performed By: #### C BCA, BMP, 28128-5, 93760-8, 05656-8 #### [facility] ([id number]) [address] [place] [address] 38107 Bilirubin [Mass/Vol] 0.4 mg/dL Normal 0.3-1.2 [facility] Comment on above: Performed By: #### C BCA, BMP, 46121-8, 80880-5, 56889-6 #### [facility] ([id number]) [address] [place] [address] 59826 Calcium [Mass/Vol] 8.4 mg/dL Low 8.5-10.5 [facility] Comment on above: Performed By: #### C BCA, BMP, 78022-0, 50671-9, 11162-1 #### [facility] ([id number]) [address] [place] [address] 96820 Chloride [Moles/Vol] 101 mmol/L Normal 98-109 [facility] Comment on above: Performed By: #### C BCA, BMP, 00733-1, 14300-9, 13060-5 #### [facility] ([id number]) [address] [place] [address] 89397 CO2 [Moles/Vol] 28 mmol/L Normal 22-32 [facility] Comment on above: Performed By: #### C VIRGILIO, BMP, 18591-9, 52321-1, 53918-6 #### [facility] ([id number]) [address] [place] [address] 04581 Creatinine [Mass/Vol] 2.63 mg/dL High 0.40-1.00 [facility] Comment on above: Result Comment: METH OD TRACEABLE TO IDMS STANDARD Performed By: #### C VIRGILIO, MARIO, 42551-3, 93638-4, 35120-7 #### [facility] ([id number]) [address] [place] [address] 40930 GFR/1.73 sq M.predicted among non-blacks MDRD (S/P/Bld) [Vol rate/Area] 20 mL/min/{1.73_m2} Low >59 [facility] Comment on above: Result Comment: Reported eGFR is based on the CKD-EPI 2020 equation that does not use a race coefficient. Performed By: #### C VIRGILIO, MARIO, , 96253-9, 75200-8 #### [facility] ([id number]) [address] [place] [address] 39930 Glucose [Mass/Vol] 107 mg/dL High 65-99 [facility] Comment on above: Performed By: #### C VIRGILIO, BMP, , 61108-2, 63950-5 #### [facility] ([id number]) [address] [place] [address] 29567 Potassium [Moles/Vol] 3.2 mmol/L Low 3.5-5.0 [facility] Comment on above: Performed By: #### C VIRGILIO, BMP, 37046-2, 49897-4, 41213-5 #### [facility] ([id number]) [address] [place] [address] [place] [address] Protein [Mass/Vol] 5.4 g/dL Low 6.0-8.0 [facility] Comment on above: Performed By: #### C BCA, BMP, 82139-4, 49723-7, 12942-6 #### [facility] ([id number]) [address] [place] [address] 63761 Sodium [Moles/Vol] 137 mmol/L Normal 134-146 [facility] Comment on above: Performed By: #### C BCA, BMP, 65069-4, 59408-5, 58463-3 #### [facility] ([id number]) [address] [place] [address] 97690 Urea nitrogen [Mass/Vol] 23 mg/dL Normal 5-23 [facility] Comment on above: Performed By: #### C BCA, BMP, 65512-5, 83091-3, 50969-0 #### [facility] ([id number]) [address] [place] [address] 86799 Calcium.ionized (Bld) [Moles /Vol]on 10-16-2023 [facility] [employer] [facility] PORTABLE ICA 4.6 mg/dL Normal 4.5-5.3 [facility] Comment on above: Performed By: #### C BCA, BMP, 13440-8, 90424-1, 16583-2 #### [facility] ([id number]) [address] [place] [address] 31758 Cardiac echo study Procedure Ordered By: Cole Hannah on 10-16-2023 Aortic root 3.30 cm [facility] Work Phone: AV mean gradient 7.00 mmHg [facility] Work Phone: AV peak gradient 13.99 mmHg [facility] Work Phone: AV peak gerber 187.00 cm/s [facility] Work Phone: AV valve area 2.07 cm2 [facility] Work Phone: AV Velocity Ratio 0.66 [facility] Work Phone: AV VTI 38.50 cm [facility] Work Phone: E wave deceleration time 232.00 msec [facility] Work Phone: E/A ratio 1.62 [facility] Work Phone: Echo EF Estimated 69 % [facility] Work Phone: EF 69 % [facility] Work Phone: Energy loss index 1.18 [facility] Work Phone: FS 38 % 28 - 44 % [facility] Work Phone: Interventricular Septum Diastolic Thickness by 2D 10 cm [facility] Work Phone: IVS 1.00 cm 0.6 - 1.1 cm [facility] Work Phone: LA size 3.70 cm [facility] Work Phone: LA volume 71.00 cm3 [facility] Work Phone: LA Volume Index 28.1 mL/m2 [facility] Work Phone: Left Ventricle Mass [phone] g [facility] Work Phone: LV Diastolic Volume 101.00 mL [facility] Work Phone: LV ESV A2C 61.50 mL [facility] Work Phone: LV ESV A4C 81.70 mL [facility] Work Phone: LV RWT 2D 40.00 [facility] Work Phone: LV Systolic Volume 31.70 mL [facility] [employer] Work Phone: LVIDd 5.00 cm 7.85 - 10.91 cm [facility] Work Phone: LVIDs 3.10 cm 4.53 - 6.87 cm [employer] Work Phone: LVOT diameter 2.00 cm [facility] Work Phone: LVOT peak gerber 1.16 m/s [facility] Work Phone: LVOT peak VTI 25.40 cm [facility] Work Phone: LVOT stroke volume 79.80 ml [facility] Work Phone: MV Peak A Gerber 83.70 cm/s [facility] Work Phone: MV Peak E Gerber 136.00 cm/s [facility] Work Phone: MV pressure 1/2 time 68.00 ms [facility] Work Phone: MV TDI E' (medial) 4.68 cm/s [facility] Work Phone: MV valve area p 1/2 method 3.24 cm2 [facility] Work Phone: PW 1.00 cm 0.6 - 1.1 cm [employer] Work Phone: RA 2D Volume 16.8 mL/m2 [facility] Work Phone: RA area 15.3 cm2 [employer] Work Phone: RV diastolic dimension (basal) 39.0 mm [employer] Work Phone: RVID d 3.9 cm [employer] Work Phone: TAPSE 2.09 cm [employer] Work Phone: TASV 11.5 cm/s [facility] Work Phone: TDI 6.64 cm/s [facility] Work Phone: Valve area - Index 0.8 [facility] Work Phone: ZLVIDD -6.16 [facility] Work Phone: ZLVIDS -4.64 [facility] Work Phone: [facility] Work Phone: Cardiac echo study Procedure on 10-16-2023 Left Ventricle: Left ventricle appears normal in size. There is mild concentric increased wall thickness/hypertroph y. Systolic function is normal with an ejection fraction of 60-65%. Elevated LV filling pressures by tissue Doppler Right Ventricle: Systolic function is normal. Aorta: The aortic root is normal in size. Pericardium: There is no pericardial effusion. No evidence of clinically significant valve pathologies as detailed below Left Ventricle Left ventricle appears normal in size. There is mild concentric increased wall thickness/hypertroph y. Systolic function is normal with an ejection fraction of 60-65%. No obvious regional wall motion abnormalities. Grade II diastolic dysfunction (pseudonormal) is present. Lateral E' is 6.64 cm/s. Medial E' is 4.68 cm/s. Right Ventricle Right ventricular size appears normal. The right ventricular basal diameter is 39.0 mm. Systolic function is normal. Left Atrium Left atrium volume index is normal. The left atrial volume index is 28.1 mL/m2. Right Atrium Right atrium is normal in size. The right atrial area is 15.3 cm2. IVC/SVC IVC is not well visualized. Mitral Valve Mitral valve structure is normal. There is [id number] regurgitation with a centrally directed jet. There is no evidence of mitral valve stenosis. Tricuspid Valve The tricuspid valve was not well visualized. There is trace regurgitation. There is no evidence of tricuspid valve stenosis. The right ventricular systolic pressure could not be estimated. Aortic Valve The aortic valve was not well visualized. There is mild sclerosis. There is no regurgitation or stenosis. Pulmonic Valve The pulmonic valve was not well visualized. There is trace regurgitation. There is no evidence of pulmonic valve stenosis. Ascending Aorta The aortic root is normal in size. Pericardium There is no pericardial effusion. Study Details A complete echo was performed using complete 2D, color flow Doppler and spectral Doppler. Overall the study quality was adequate. BP 148/117 Wall Scoring Baseline Score Index: 1.00 The left ventricular wall motion is normal. [facility] Radiology Study observation (narrative) [facility] [employer] Clinical Pathologyon 024 Clinical Pathology Normal [facility] Comment on above: Result Comment: [facility] [address] [place] [address] Clinical Pathology Report Patient Name:DANIELLE MONTANA:1965 (Age: 58)Gender:FTaken:4Reported:4Physician(s):Alhaji Flores MD ([phone])Copy To: Rec. 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 No monoclonal protein identified. Report Electronically Signed Out df/4Dnicci Gomez MD Interpretation performed at [facility], [address] [place] [address], License number: [id number]. Clinical History D17.9, I16.0, E87.6. URINE PROTEIN ELECTROPHORESIS SAMPLE NUMBER: [id number] RELATIVE ELECTROPHORETIC CONCENTRATIONS (%) ? 100.0 Urine Protein 1410 mg/L (Electrophoretic gels and densitometric tracings on file in lab.) Specimen(s) Received Urine Protein Electrophoresis Fee Codes(s): 1; 30518-62 Comprehensive metabolic pane phu 10-16-2023 Albumin [Mass/Vol] 2.7 g/dL Low 3.2 - 5.3 g/dL [facility] ALP [Catalytic activity/Vol] 55 U/L 39 - 130 U/L [facility] ALT No additional P-5'-P [Catalytic activity/Vol] 9 U/L 0 - 31 U/L [facility] Anion gap [Moles/Vol] 8 mmol/L 5 - 15 mmol/L [facility] AST [Catalytic activity/Vol] 13 U/L 0 - 41 U/L [facility] Bilirubin [Mass/Vol] 0.4 mg/dL 0.3 - 1 .2 mg/dL [facility] Calcium [Mass/Vol] 8.4 mg/dL Low 8.5 - 10. 5 mg/dL [facility] Chloride [Moles/Vol] 101 mmol/L 98 - 10 9 mmol/L [facility] CO2 [Moles/Vol] 28 mmol/L 22 - 32 mmol/L [facility] [facility] Creatinine [Mass/Vol] 2.63 mg/dL High 0.40 - 1.00 mg/dL [facility] Comment on above: METHOD TRACE[facility] STANDARD eGFR (CKD-EPI)non-race dependent 20 Low - PINF [facility] Comment on above: Reported eGFR is based on the CKD-EPI 2020 equation that does not use a race coefficient. Glucose [Mass/Vol] 107 mg/dL High 65 - 99 mg/dL [facility] Interpretation and review of laboratory results Abnormal [facility] Potassium [Moles/Vol] 3.2 mmol/L Low 3.5 - 5.0 mmol/L [facility] Protein [Mass/Vol] 5.4 g/dL Low 6.0 - 8.0 g/dL [facility] Sodium [Moles/Vol] 137 mmol/L 134 - 146 mmol/L [facility] Urea nitrogen [Mass/Vol] 23 mg/dL 5 - 23 mg/dL [facility] D-Dimeron 10-16-2023 Fibrin D-dimer DDU (PPP) [Mass/Vol] 499 High [facility] Comment on above: Results >=255ng/mL DDU: Results may be indicative of the presence of VTE. The use of the Wells score and further diagnostic tests should be considered. Elevated D-Dimer levels can also be associated with DIC, neoplasm, , trauma and liver disease. Elevated levels of rheumatoid factor may lead to an overestimation of the D-Dimer level. Fibrin D-dimer DDU (PPP) [Ma ss/Vol]on 10-16-2023 Interpretation and review of laboratory results Abnormal [facility] D DIMER 499 ng/mL DDU High <255 [facility] Comment on above: Result Comment: Results >=255ng/mL [...] level. Performed By: #### C MARIO POOLE, 43528-6, 33214-3, 10146-1 #### [facility] ([id number]) [address] [place] [address] 43145 Free light chainson 10-16-19 Immunoglobulin light chains.kappa.free (S) [Mass/Vol] 3.52 mg/dL High 0.33 - 1.94 mg/dL [facility] Immunoglobulin light chains.kappa.free/Immuno globulin light chains.lambda (S) [Mass ratio] 0.94 0.26 - 1.65 [facility] Immunoglobulin light chains.lambda [Mass/Vol] 3.75 mg/dL High 0.57 - 2.63 mg/dL [facility] Interpretation and review of laboratory results Abnormal [facility] HGB A1C (GLYCO-HGB)on 2023 Glucose [Mass/Vol] 111 mg/dL Normal [facility] Comment on above: Performed By: #### C MARIO POOLE, 35878-1, 04317-9, 87506-0 #### [facility] ([id number]) [address] [place] [address] 56855 HbA1c (Bld) [Mass fraction] 5.5 % Normal 4.4-5.6 [facility] Comment on above: Result Comment: NOTE ADA Guidelines Result HgbA1c Normal : less than 5.7 % Prediabetes : 5.7 % to 6.4 % Diabetes : > 6.4 % Use with caution in patients with abnormal hemoglobin variants as the half-life of red blood cells and in vivo glycation rates are affected. Performed By: #### C MARIO POOLE, 27549-9, 30785-7, 16941-8 #### [facility] ([id number]) [address] [place] [address] 35075 Hemoglobin A1con 10-16-2023 Average glucose Estimated from glycated hemoglobin (Bld) [Mass/Vol] 111 mg/dL [facility] HbA1c (Bld) [Mass fraction] 5.5 % 4.4 - 5.6 % [facility] Comment on above: NOTE ADA Guidelines Result HgbA1c Normal : less than 5.7 % Prediabetes : 5.7 % to 6.4 % Diabetes : > 6.4 % Use with caution in patients with abnormal hemoglobin variants as the half-life of red blood cells and in vivo glycation rates are affected. [facility] MAGNESIUMon 10-16-2023 Magnesium [Mass/Vol] 2.1 mg/dL Normal 1.8-2.6 [facility] Comment on above: Performed By: #### C MARIO POOLE, , 92219-5, 27193-2 #### [facility] ([id number]) [address] [place] [address] 65237 MICROALBUMIN - ALBUMIN:CREAT ININE URINE RATIOon 10-16-2023 ALB/CREAT RATIO 3392.0 mg/g creat High 0.0-30.0 Pr [facility] Comment on above: Performed By: #### C MARIO POOLE, , 50406-5, 00071-0 #### [facility] ([id number]) [address] [place] [address] 81294 Albumin DL <= 20 mg/L (U) [Mass/Vol] 88.6 mg/dL High 0.0-1.9 [facility] Comment on above: Performed By: #### C MARIO POOLE, , 21943-4, 79948-9 #### [facility] ([id number]) [address] [place] [address] 67502 URINE CREAT 26.12 mg/dL Normal [facility] Comment on above: Performed By: #### C MARIO POOLE, , 60038-5, 91610-1 #### [facility] ([id number]) [address] [place] [address] 54947 Magnesiumon 10-16-2023 Magnesium [Mass/Vol] 2.1 mg/dL 1.8 - 2 .6 mg/dL [facility] Microalbumin - Albumin: Crea tinine Urine Ratioon 10-16-2023 Albumin DL <= 20 mg/L (U) [Mass/Vol] 88.6 mg/dL High 0.0 - 1.9 mg/dL [facility] Albumin/Creatinine DL <= 1.0 mg/L (U) [Ratio] 3392.0 High [facility] Creatinine (U) [Mass/Vol] 26.12 mg/dL [facility] Interpretation and review of laboratory results Abnormal [facility] No Panel Informationon 10-15 [facility] Nuclear Ab IA Ql (S)on 10-15 [facility] PHOSPHORUSon 10-16-2023 Phosphate [Mass/Vol] 4.3 mg/dL Normal 2.4-4.9 [facility] Comment on above: Performed By: #### C MARIO POOLE, 12871-3, 74395-0, 27526-3 #### [facility] ([id number]) [address] [place] [address] 24351 POCT Ionized Calciumon 10-15 Calcium.ionized (Bld) [Moles/Vol] 4.6 mg/dL 4.5 - 5.3 mg/dL [facility] POTASSIUMon 10-16-2023 Potassium [Moles/Vol] 4.8 mmol/L Normal 3.5-5.0 [facility] Comment on above: Result Comment: SPEC IMEN HEMOLYZED, RESULTS INCREASED Performed By: #### C BCA, BMP, 12633-9, 55320-9, 29471-6 #### [facility] ([id number]) [address] [place] [address] 80582 PROTEIN CREAT RATIOon 2023 RANDOM URINE PROTEIN 1270 mg/L High <120 [facility] Comment on above: Performed By: #### C BCA, BMP, 97319-7, 72070-2, 33967-5 #### [facility] ([id number]) [address] [place] [address] 83200 U/PRO/HORSE IDENTIFIER RATIO CALC 4.72 High <0.2 [facility] Comment on above: Result Comment: Neph rotic Syndrome is associated with ratios >3.5 Performed By: #### C BCA, BMP, 74708-4, 48343-3, 94716-5 #### [facility] ([id number]) [address] [place] [address] 28886 URINE CREATININE,RDM 26.92 mg/dL Normal [facility] Comment on above: Performed By: #### C BCA, BMP, 40413-8, 08164-1, 97662-5 #### [facility] ([id number]) [address] [place] [address] 43195 Phosphate [Mass/Vol]on 10-15 [facility] Phosphoruson 10-16-2023 Phosphate [Mass/Vol] 4.3 mg/dL 2.4 - 4 .9 mg/dL [facility] Potassiumon 10-16-2023 Potassium [Moles/Vol] 4.8 mmol/L 3.5 - 5.0 mmol/L [facility] Comment on above: SPECIMEN HEMOLYZED, RESULTS INCREASED Potassium [Moles/Vol]on 09-23 [facility] Protein creat ratioon 2023 Creatinine (U) [Mass/Vol] 26.92 mg/dL [facility] Interpretation and review of laboratory results Abnormal [facility] Protein (U) [Mass/Vol] 1270 mg/L High NINF - 120 mg/L [facility] Protein/Creatinine (U) [Ratio] 4.72 High NINF - 0.2 [facility] Comment on above: Nephrotic Syndrome i s associated with ratios >3.5 [facility] Protein electrophoresis, ser umon 10-16-2023 Albumin [Mass/Vol] 2.5 g/dL Low 3.4 - 5.3 g/dL [facility] Alpha 1 globulin Elph [Mass/Vol] 0.4 g/dL 0.1 - 0.4 g/dL [facility] Alpha 2 globulin Elph [Mass/Vol] 0.9 g/dL 0.4 - 1.1 g/dL [facility] Beta globulin Elph [Mass/Vol] 0.5 g/dL 0.5 - 1.2 g/dL [facility] Gamma globulin Elph [Mass/Vol] 0.4 g/dL Low 0.5 - 1.6 g/dL [facility] Interpretation and review of laboratory results Abnormal [facility] Pathologist interpretation (Bld) [Interp] Unremarkable protein distribution, no monoclonal bands. [facility] Protein [Mass/Vol] 4.7 g/dL Low 6.0 - 8.0 g/dL [facility] URINALYSISon 10-16-2023 Bilirubin Ql (U) Negative Normal NEG [facility] Comment on above: Performed By: #### C MARIO POOLE, 17040-9, 04729-4, 01212-4 #### [facility] ([id number]) [address] [place] [address] 92450 BLOOD/HGB Large Abnormal NEG [facility] Comment on above: Performed By: #### MARIO Gale BCA, 82962-8, 96151-6, 94977-1 #### [facility] ([id number]) [address] [place] [address] 54855 Color (U) YELLOW Normal YELLOW [facility] Comment on above: Performed By: #### Shahla POOLE BMP, 75561-6, 94438-4, 66119-0 #### [facility] ([id number]) [address] [place] [address] 85157 Glucose Ql (U) Negative Normal NEG [facility] Comment on above: Performed By: #### Shahla POOLE BMP, 78303-4, 28993-2, 69834-4 #### [facility] ([id number]) [address] [place] [address] 48325 Ketones Ql (U) Negative Normal NEG [facility] Comment on above: Performed By: #### C BCA, BMP, 70484-7, 52247-7, 23504-0 #### [facility] ([id number]) [address] [place] [address] 61946 Leukocyte esterase Test strip Ql (U) Negative Normal NEG [facility] Comment on above: Performed By: #### C BCA, BMP, 54405-1, 83014-6, 40218-0 #### [facility] ([id number]) [address] [place] [address] 49342 Nitrite Ql (U) Negative Normal NEG [facility] Comment on above: Performed By: #### C BCA, BMP, 26413-5, 06968-1, 22402-7 #### [facility] ([id number]) [address] [place] [address] 85640 pH (U) 6.0 [pH] Normal 5.0-8.5 [facility] Comment on above: Performed By: #### C BCA, BMP, 81467-0, 27522-8, 39594-7 #### [facility] ([id number]) [address] [place] [address] 57088 Protein Ql (U) 100 mg/dL Abnormal NEG [facility] Comment on above: Performed By: #### C BCA, BMP, 18471-2, 26345-2, 47121-2 #### [facility] ([id number]) [address] [place] [address] 65822 R.B.CELLS 80 /hpf High 0-5 [facility] Comment on above: Performed By: #### C BCA, BMP, 38334-2, 95112-8, 19535-1 #### [facility] ([id number]) [address] [place] [address] 76075 Specific gravity (U) [Rel density] 1.015 Normal 1.003-1.03 5 [facility] Comment on above: Performed By: #### C VIRGILIO, BMP, , 50002-4, 30045-5 #### [facility] ([id number]) [address] [place] [address] 01004 SQUAMOUS EPITHELIUM 2 /hpf Normal 0-5 [facility] Comment on above: Performed By: #### C VIRGILIO, BMP, , 91480-8, 62752-9 #### [facility] ([id number]) [address] [place] [address] 38270 TURBIDITY CLEAR Normal CLEAR [facility] Comment on above: Performed By: #### C VIRGILIO, BMP, , 12902-9, 97400-8 #### [facility] ([id number]) [address] [place] [address] 01479 Urobilinogen Qn (U) 0.2 {Micaela'U}/dL Normal <1.1 [facility] Comment on above: Performed By: #### C VIRGILIO, BMP, , 85159-0, 76295-3 #### [facility] ([id number]) [address] [place] [address] 88236 W.B.CELLS 5 /hpf Normal 0-5 [facility] Comment on above: Performed By: #### C VIRGILIO, BMP, , 93886-7, 01135-8 #### [facility] ([id number]) [address] [place] [address] 99011 URINE PROTEIN ELECTROPHORESI Son 10-16-2023 UPREL INTERP SEE SEPARATE REPORT Normal [facility] URINE VOLUME AND TIMEon 09-23 TIME 24 h Normal [facility] Comment on above: Performed By: #### U CR, UPRO ####[facility] ([id number])[address] [place] [address] 72550 TOTAL VOLUME 4400 mL Normal [facility] Comment on above: Performed By: #### U CR, UPRO ####[facility] ([id number])[address] [place] [address] 12824 US RETROPERITONEAL COMPLETEo n 10-16-2023 US RETROPERITONEAL [...] Unger MD on 10/16/2023 9:42 AM Normal [facility] US Retroperitoneumon 024 US RETROPERITONEAL COMPLETE: 10/16/2023 9:06 AM Indication: [...] Maksim Unger MD on 10/16/2023 9:42 AM Maksim Sotelo MD - 10/16/2023 US RETROPERITONEAL COMPLETE: 10/16/2023 9:06 AM Indication: [...] Maksim Unger MD on 10/16/2023 9:42 AM [facility] Radiology Study observation (narrative) [facility] [email or web address] [facility] US RetroperitoneumOrdered By : Maksim Unger on 10-16-2023 [facility] [employer] Work Phone: US.doppler Lower extremity v ein - bilateralon 10-16-2023 Radiology Study observation (narrative) [facility] [email or web address] [facility] Urinalysison 10-16-2023 Bilirubin Ql (U) Negative Negative^N egative [facility] [employer] Color (U) YELLOW YELLOW^YEL LOW [facility] Epithelial cells Auto (Urine sed) [#/Area] 2 [facility] Glucose (U) [Mass/Vol] Negative Negat marva^N egative mg/dL [facility] Hemoglobin Auto test strip Ql (U) Large Abnormal Negative^N egative [facility] Interpretation and review of laboratory results Abnormal [facility] Ketones (U) [Mass/Vol] Negative Negat marva^N egative mg/dL [facility] Leukocyte esterase Auto test strip Ql (U) Negative Negative^N egative [facility] Nitrite Auto test strip Ql (U) Negative Negative^N egative [facility] pH (U) 6.0 [pH] 5.0 - 8.5 [facility] Protein (U) [Mass/Vol] 100 mg/dL Abnormal Negat marva^N egative [facility] RBC Auto (Urine sed) [#/Area] 80 High [facility] Specific gravity Refractometry automated (U) [Rel density] 1.015 1.003 - 1.035 [facility] Turbidity Ql (U) CLEAR CLEAR^NUNU R [facility] Urobilinogen Qn (U) 0.2 NINF [facility] WBC Auto (Urine sed) [#/Area] 5 [facility] Basement membrane IgG Qn (S) on 10-15-2023 Glomerular Base Memb IgG <0.2 Normal <1. 0 (Negative) [facility] Comment on above: Result Comment: NOTE Test Performed by: [facility] [address] [place] [address] [employer] Field Service Technician: Ledy Son Ph.D.; CLIA# [id number] Performed By: #### C VIRGILIO BMP, 18694-2, 95997-4, 08149-6 #### [facility] ([id number]) [address] [place] [address] 74903 CBC AND AUTO DIFFon 10-15-19 ABSOLUTE BASOPHIL 0.1 X10E9/L Normal 0.0-0.2 [facility] Comment on above: Performed By: #### C VIRGILIO [facility], 69478-1 #### [facility] ([id number]) [address] [place] [address] 54101 ABSOLUTE NEUTROPHIL 6.8 X10E9/L High 1.5-6.6 [facility] Comment on above: Performed By: #### C EDEL POOLE, #### [facility] ([id number]) [address] [place] [address] 23645 Basophils/100 WBC (Bld) 0.7 % Normal [facility] Comment on above: Performed By: #### Shahla POOLE CMP, 89150-4 #### [facility] ([id number]) [address] [place] [address] 26132 Eosinophils (Bld) [#/Vol] 0.3 10*3/uL Normal 0.0-0.4 [facility] Comment on above: Performed By: #### Shahla POOLE CMP, 74559-8 #### [facility] ([id number]) [address] [place] [address] 30995 Eosinophils/100 WBC (Bld) 3.3 % Normal [facility] Comment on above: Performed By: #### Shahla POOLE [facility], 74387-3 #### [facility] ([id number]) [address] [place] [address] 61234 Erythrocyte distribution width (RBC) [Ratio] 14.6 % Normal 11.5-15.0 [facility] Comment on above: Performed By: #### Shahla POOLE [facility], #### [facility] ([id number]) [address] [place] [address] 94228 Hematocrit (Bld) [Volume fraction] 30.1 % Low 35-47 [facility] Comment on above: Performed By: #### Shahla POOLE CMP, 06740-3 #### [facility] ([id number]) [address] [place] [address] 52585 Hemoglobin (Bld) [Mass/Vol] 10.0 g/dL Low 11.7-15.5 [facility] Comment on above: Performed By: #### Shahla POOLE CMP, #### [facility] ([id number]) [address] [place] [address] 47978 Lymphocytes (Bld) [#/Vol] 2.4 10*3/uL Normal 1.0-3.5 [facility] Comment on above: Performed By: #### Shahla POOLE CMP, #### [facility] ([id number]) [address] [place] [address] 34503 Lymphocytes/100 WBC (Bld) 23.7 % Normal [facility] Comment on above: Performed By: #### Shahla POOLE CMP, #### [facility] ([id number]) [address] [place] [address] 92722 MCH (RBC) [Entitic mass] 27.7 pg Normal 27-34 [facility] Comment on above: Performed By: #### Shahla POOLE [facility], #### [facility] ([id number]) [address] [place] [address] 09238 MCHC (RBC) [Mass/Vol] 33.1 g/dL Normal 32-36 [facility] Comment on above: Performed By: #### Shahla POOLE CMP, #### [facility] ([id number]) [address] [place] [address] 26299 MCV (RBC) [Entitic vol] 84 fL Normal 80-100 [facility] Comment on above: Performed By: #### Shahla POOLE, CMP, 17331-0 #### [facility] ([id number]) [address] [place] [address] 20713 Monocytes (Bld) [#/Vol] 0.6 10*3/uL Normal 0-0.9 [facility] Comment on above: Performed By: #### Shahla POOLE CMP, #### [facility] ([id number]) [address] [place] [address] 84742 Monocytes/100 WBC (Bld) 5.5 % Normal [facility] Comment on above: Performed By: #### Shahla POOLE CMP, 00641-5 #### [facility] ([id number]) [address] [place] [address] 74311 Neutrophils/100 WBC (Bld) 66.8 % Normal [facility] Comment on above: Performed By: #### Shahla POOLE CMP, 64793-2 #### [facility] ([id number]) [address] [place] [address] 41600 Platelet mean volume (Bld) [Entitic vol] 9.0 fL Normal 7-12 [facility] Comment on above: Performed By: #### Shahla POOLE CMP, 49536-9 #### [facility] ([id number]) [address] [place] [address] 54241 Platelets (Bld) [#/Vol] 312 10*3/uL Normal 150-450 [facility] Comment on above: Performed By: #### Shahla POOLE CMP, 14556-2 #### [facility] ([id number]) [address] [place] [address] 27925 RBC COUNT 3.59 X10E12/L Low 3.80-5.20 [facility] Comment on above: Performed By: #### Shahla POOLE CMP, 79068-4 #### [facility] ([id number]) [address] [place] [address] 69813 WBC (Bld) [#/Vol] 10.2 10*3/uL Normal 4.0-11.0 [facility] Comment on above: Performed By: #### Shahla POOLE CMP, 09693-7 #### [facility] ([id number]) [address] [place] [address] 55132 CBC auto differentialon 09-23 Basophils (Bld) [#/Vol] 0.1 10*3/uL [facility] Basophils/100 WBC (Bld) 0.7 % P [facility] Eosinophils (Bld) [#/Vol] 0.3 10*3/uL [facility] Eosinophils/100 WBC (Bld) 3.3 % [facility] Erythrocyte distribution width (RBC) [Ratio] 14.6 % 11.5 - 15.0 % [facility] Hematocrit (Bld) [Volume fraction] 30.1 % Low 35 - 47 % [facility] Hemoglobin (Bld) [Mass/Vol] 10.0 g/dL Low 11.7 - 15.5 g/dL [facility] Interpretation and review of laboratory results Abnormal [facility] Lymphocytes (Bld) [#/Vol] 2.4 10*3/uL [facility] Lymphocytes/100 WBC (Bld) 23.7 % [facility] MCH (RBC) [Entitic mass] 27.7 pg 27 - 34 pg [facility] MCHC (RBC) [Mass/Vol] 33.1 g/dL 32 - 3 6 g/dL [facility] MCV (RBC) [Entitic vol] 84 fL 80 - 100 fL [facility] Monocytes (Bld) [#/Vol] 0.6 10*3/uL [facility] Monocytes/100 WBC (Bld) 5.5 % [facility] Neutrophils (Bld) [#/Vol] 6.8 10*3/uL High [facility] Neutrophils/100 WBC (Bld) 66.8 % [facility] Platelet mean volume (Bld) [Entitic vol] 9.0 fL 7 - 12 fL [facility] Platelets (Bld) [#/Vol] 312 10*3/uL [facility] RBC (Bld) [#/Vol] 3.59 10*6/uL Low [facility] WBC corrected for nucl RBC Auto (Bld) [#/Vol] 10.2 [facility] CK Totalon 10-15-2023 CK [Catalytic activity/Vol] 82 U/L 24 - 170 U/L [facility] CK [Catalytic activity/Vol]o n 10-15-2023 [facility] CPK 82 U/L Normal 24-170 [facility] Comment on above: Performed By: #### C BCA, BMP, 94385-6, 13776-1, 30798-6 #### [facility] ([id number]) [address] [place] [address] 98547 COMPLEMENT PROFILEon 024 COMPLEMENT C3 113 mg/dL Normal 86-184 [facility] Comment on above: Performed By: #### C BCA, BMP, 91510-3, 16480-7, 59827-9 #### [facility] ([id number]) [address] [place] [address] 54684 COMPLEMENT C4 36 mg/dL Normal 16-47 [facility] Comment on above: Performed By: #### C BCA, BMP, 94569-5, 51036-2, 24004-0 #### [facility] ([id number]) [address] [place] [address] 50293 COMPREHENSIVE METABOLIC PANE Phu 10-15-2023 Albumin [Mass/Vol] 2.8 g/dL Low 3.2-5.3 [facility] Comment on above: Performed By: #### C BCA, CMP, 29041-4 #### [facility] ([id number]) [address] [place] [address] 54851 ALP [Catalytic activity/Vol] 61 U/L Normal 39-130 [facility] Comment on above: Performed By: #### C BCA, CMP, 37488-0 #### [facility] ([id number]) [address] [place] [address] 38205 ALT [Catalytic activity/Vol] 10 U/L Normal 0-31 [facility] Comment on above: Performed By: #### C BCA, CMP, #### [facility] ([id number]) [address] [place] [address] 89970 Anion gap [Moles/Vol] 10 mmol/L Normal 5-15 [facility] Comment on above: Performed By: #### C VIRGILIO CMP, 37474-3 #### [facility] ([id number]) [address] [place] [address] 14968 AST [Catalytic activity/Vol] 14 U/L Normal 0-41 [facility] Comment on above: Performed By: #### C VIRGILIO, CMP, 50230-7 #### [facility] ([id number]) [address] [place] [address] 94784 Bilirubin [Mass/Vol] 0.4 mg/dL Normal 0.3-1.2 [facility] Comment on above: Performed By: #### C VIRGILIO CMP, 94442-1 #### [facility] ([id number]) [address] [place] [address] 01692 Calcium [Mass/Vol] 8.4 mg/dL Low 8.5-10.5 [facility] Comment on above: Performed By: #### C VIRGILIO [facility], 72959-9 #### [facility] ([id number]) [address] [place] [address] 24249 Chloride [Moles/Vol] 104 mmol/L Normal 98-109 [facility] Comment on above: Performed By: #### C BCA, CMP, 50138-5 #### [facility] ([id number]) [address] [place] [address] 72103 CO2 [Moles/Vol] 26 mmol/L Normal 22-32 [facility] Comment on above: Performed By: #### C BCA, CMP, 86190-1 #### [facility] ([id number]) [address] [place] [address] 41965 Creatinine [Mass/Vol] 2.56 mg/dL High 0.40-1.00 [facility] Comment on above: Result Comment: METH OD TRACEABLE TO IDMS STANDARD Performed By: #### C EDEL POOLE, 53182-9 #### [facility] ([id number]) [address] [place] [address] 02873 GFR/1.73 sq M.predicted among non-blacks MDRD (S/P/Bld) [Vol rate/Area] 21 mL/min/{1.73_m2} Low >59 [facility] Comment on above: Result Comment: Reported eGFR is based on the CKD-EPI 2020 equation that does not use a race coefficient. Performed By: #### C EDEL POOLE, #### [facility] ([id number]) [address] [place] [address] 90143 Glucose [Mass/Vol] 103 mg/dL High 65-99 [facility] Comment on above: Performed By: #### Shahla POOLE CMP, #### [facility] ([id number]) [address] [place] [address] 29115 Potassium [Moles/Vol] 3.2 mmol/L Low 3.5-5.0 [facility] Comment on above: Performed By: #### C EDEL POOLE, 38894-1 #### [facility] ([id number]) [address] [place] [address] 40238 Protein [Mass/Vol] 5.6 g/dL Low 6.0-8.0 [facility] Comment on above: Performed By: #### C EDEL POOLE, 90998-0 #### [facility] ([id number]) [address] [place] [address] 50222 Sodium [Moles/Vol] 140 mmol/L Normal 134-146 [facility] Comment on above: Performed By: #### C EDEL POOLE, 44282-6 #### [facility] ([id number]) [address] [place] [address] 55575 Urea nitrogen [Mass/Vol] 20 mg/dL Normal - [facility] Comment on above: Performed By: #### C BCA, [facility], 47566-3 #### [facility] ([id number]) [address] [place] [address], [place] [address] CRYOGLOBULIN WITH IDon 10-14 CRYOGLOBULIN, QUAL NEG 72HOUR Normal NEG 72Hour [facility] Comment on above: Result Comment: NOTE This test was developed and its performance characteristics determined by [facility]. It has not been cleared or approved by the [place] Food and Drug Administration. This test was performed in a CLIA certified laboratory and is intended for clinical purposes. Performed By: [facility] [address] [place] [address] Lead Oracle Developer: Hank Armstrong MD, PhD CLIA Number: [id number] Performed By: #### 8 9579-7 #### [facility] ([id number]) [address] [place] [address], [place] [address] Cobalamin (Vitamin B12) [Mas s/Vol]on 10-15-2023 Interpretation and review of laboratory results Abnormal [facility] Complement profile (C3 AND C 4)on 10-15-2023 Complement C3 [Mass/Vol] 113 mg/dL 86 - 184 mg/dL [facility] Complement C4 [Mass/Vol] 36 mg/dL 16 - 47 mg/dL [facility] Comprehensive metabolic pane phu 10-15-2023 Albumin [Mass/Vol] 2.8 g/dL Low 3.2 - 5.3 g/dL [facility] ALP [Catalytic activity/Vol] 61 U/L 39 - 130 U/L [facility] ALT No additional P-5'-P [Catalytic activity/Vol] 10 U/L 0 - 31 U/L [facility] Anion gap [Moles/Vol] 10 mmol/L 5 - 15 mmol/L [facility] AST [Catalytic activity/Vol] 14 U/L 0 - 41 U/L [facility] Bilirubin [Mass/Vol] 0.4 mg/dL 0.3 - 1 .2 mg/dL [facility] Calcium [Mass/Vol] 8.4 mg/dL Low 8.5 - 10. 5 mg/dL [facility] Chloride [Moles/Vol] 104 mmol/L 98 - 10 9 mmol/L [facility] CO2 [Moles/Vol] 26 mmol/L 22 - 32 mmol/L [facility] Creatinine [Mass/Vol] 2.56 mg/dL High 0.40 - 1.00 mg/dL [facility] Comment on above: METHOD TRACEABLE TO [facility] STANDARD eGFR (CKD-EPI)non-race dependent 21 Low - PINF [facility] Comment on above: Reported eGFR is based on the CKD-EPI 2020 equation that does not use a race coefficient. Glucose [Mass/Vol] 103 mg/dL High 65 - 99 mg/dL [facility] Potassium [Moles/Vol] 3.2 mmol/L Low 3.5 - 5.0 mmol/L [facility] Protein [Mass/Vol] 5.6 g/dL Low 6.0 - 8.0 g/dL [facility] Sodium [Moles/Vol] 140 mmol/L 134 - 146 mmol/L [facility] Urea nitrogen [Mass/Vol] 20 mg/dL 5 - 23 mg/dL [facility] Creatinine (U) [Mass/Vol]on 10-15-2023 [facility] URINE CREATININE,RDM 102.61 mg/dL Normal Pr [facility] Comment on above: Performed By: #### C MARIO POOLE, 62920-1, 12987-8, 34578-2 #### [facility] ([id number]) [address] [place] [address] 58733 FERRITINon 10-15-2023 Ferritin [Mass/Vol] 45 ng/mL Normal 11-307 [facility] Comment on above: Performed By: #### C MARIO POOLE, 03604-9, 67927-1, 43057-5 #### [facility] ([id number]) [address] [place] [address] 44947 FREE LIGHT CHAINSon 10-15-19 24 FREE ANDREA/LAMBD RATIO 0.94 Normal 0.26-1.65 [facility] Comment on above: Performed By: #### C MAIRO POOLE, , 84724-8, 06875-4 #### [facility] ([id number]) [address] [place] [address] 84209 FREE KAPPA LT CHAINS 3.52 mg/dL High 0.33-1.94 [facility] Comment on above: Performed By: #### C MARIO POOLE, , 03427-1, 75125-6 #### [facility] ([id number]) [address] [place] [address] 35165 FREE LAMBDA LT CHAINS 3.75 mg/dL High 0.57-2.63 [facility] Comment on above: Performed By: #### MARIO Gale BCA, , 52900-5, 83801-6 #### [facility] ([id number]) [address] [place] [address] 35604 Ferritinon 10-15-2023 Ferritin [Mass/Vol] 45 ng/mL 11 - 307 ng/mL [facility] Ferritin [Mass/Vol]on 2023 [facility] Folateon 10-15-2023 Folate [Mass/Vol] 10.3 ng/mL 5.8 - PINF ng/mL [facility] Comment on above: NEW REFERENCE RANGE Folate [Mass/Vol]on 10-15-19 [facility] FOLIC ACID 10.3 ng/mL Normal >5.8 [facility] Comment on above: Result Comment: NEW REFERENCE RANGE Performed By: #### C MARIO POOLE, 21905-1, 55019-6, 08798-7 #### [facility] ([id number]) [address] [place] [address] 30441 HBV surface Ab IA Qnon 10-14 Anti HBs quant. <8.00 Normal [facility] Comment on above: Result Comment: Vacc inated: >=12mIU/mL, Positive (Immune) Unvaccinated: <8mIU/mL, Negative (Not Immune) 8-11.99 mIU/mL: Indeterminate, (Considered Not Immune) Performed By: #### C MARIO POOLE, 66747-6, 63260-0, 64540-6 #### [facility] ([id number]) [address] [place] [address] 38498 HBV surface Ag IA Qlon 10-14 HEPATITIS B SURF AG Negative Normal NEG [facility] Comment on above: Performed By: #### C VIRGILIO, MARIO, 79390-9, 07818-5, 60377-6 #### [facility] ([id number]) [address] [place] [address] 66064 HCV Ab IA Qlon 10-15-2023 ANTI HCV W/PCR REFLX Non-Reactive Normal NRCT Pr [facility] Comment on above: Result Comment: If recent infection suspected, recommend repeat testing (>2 months). Laduiw-dz-lsatxa ratio is <0.80. Performed By: #### C VIRGILIO, MARIO, 93643-9, 44479-0, 40777-4 #### [facility] ([id number]) [address] [place] [address] 75973 HIV 1&2 AB/AG Screen (P24 AG )on 10-15-2023 HIV 1+2 Ab+HIV1 p24 Ag IA Ql Non-Reactive Non-Reacti ve^Non-[place] ctive [facility] Comment on above: This information has been disclosed to you [...] release of HIV test results or diagnoses. HIV 1+2 Ab+HIV1 p24 Ag IA Ql on 10-15-2023 HIV 1 and 2 Ab/Ag Screen Non-Reactive Normal NRCT [facility] Comment on above: Result Comment: This information [...] diagnoses. Performed By: #### C MARIO POOLE, 48230-5, 72262-7, 11093-8 #### [facility] ([id number]) [address] [place] [address] 27705 Hepatitis B Surface Antibody Quantitationon 10-15-2023 HBV surface Ab IA Qn mIU/mL [facility] Comment on above: Vaccinated: >=12mIU/ mL, Positive (Immune) Unvaccinated: <8mIU/mL, Negative (Not Immune) 8-11.99 mIU/mL: Indeterminate, (Considered Not Immune) Hepatitis B surface antigeno n 10-15-2023 HBV surface Ag IA Ql Negative Negativ e^N egative [facility] Hepatitis C(HCV) Ab w/ Refle x to PCRon 10-15-2023 HCV Ab IA Ql Non-Reactive Non-Reacti ve^Non-[place] ctive [facility] Comment on above: If recent infection suspected, recommend repeat testing (>2 months). Yspizd-ps-kjlwzd ratio is <0.80. IRON PROFILEon 10-15-2023 Iron [Mass/Vol] 30 ug/dL Low 50-170 [facility] Comment on above: Performed By: #### C MARIO POOLE, 08651-7, 87370-9, 76563-3 #### [facility] ([id number]) [address] [place] [address] [place] [address] IRON BINDING 218 ug/dL Low 250-425 [facility] Comment on above: Performed By: #### C VIRGILIO, BMP, 43457-4, 97344-4, 71014-1 #### [facility] ([id number]) [address] [place] [address] IRON SATURATION 14 % SATURATION Low 15-50 [facility] Comment on above: Performed By: #### C VIRGILIO, BMP, 17962-7, 57593-8, 76510-9 #### [facility] ([id number]) [address] [place] [address] 04564 Iron and TIBCon 10-15-2023 Interpretation and review of laboratory results Abnormal [facility] Iron [Mass/Vol] 30 ug/dL Low 50 - 170 ug/dL [facility] Iron binding capacity [Mass/Vol] 218 ug/dL Low 250 - 425 ug/dL [facility] Iron saturation [Mass fraction] 14 Low [facility] MAGNESIUMon 10-15-2023 Magnesium [Mass/Vol] 1.7 mg/dL Low 1.8-2.6 [facility] Comment on above: Performed By: #### C VIRGILIO, [facility], 85008-6 #### [facility] ([id number]) [address] [place] [address] 31623 Magnesiumon 10-15-2023 Magnesium [Mass/Vol] 1.7 mg/dL Low 1.8 - 2 .6 mg/dL [facility] Myeloperoxidase IgG Qn (S)on 10-15-2023 Myeloperoxidase IgG >8.0 High <0.4 (Negative) [facility] Comment on above: Result Comment: NOTE Interpretation: Positive (>=1.0) Test Performed by: [facility] [address] [place] [address] Ag Equipment Field Service Technician: Ledy Son Ph.D.; CLIA# [id number] Performed By: #### C VIRGILIO, BMP, 51354-3, 23898-5, 82169-0 #### [facility] ([id number]) [address] [place] [address] 85005 No Panel Informationon 10-14 [facility] Interpretation and review of laboratory results Abnormal [facility] Nuclear Ab IA Ql (S)on 10-14 SAUL Screen w/reflex Negative Normal NEG [facility] Comment on above: Result Comment: Testing performed using multiplex flow immunoassay. Eleven different antigens associated with systemic autoimmune diseases (dsDNA,Sm,Sm/QUALITY CONTROL MANAGER,QUALITY CONTROL MANAGER,Chromatin, SSA,SSB,Yoly-1,Scl70,Ribo P,Centromere B) are included in this screening test. Performed By: #### C MARIO POOLE, 76319-7, 91437-4, 88594-0 #### [facility] ([id number]) [address] [place] [address] 96116 POTASSIUMon 10-15-2023 Potassium [Moles/Vol] 3.5 mmol/L Normal 3.5-5.0 [facility] Comment on above: Performed By: #### C MARIO POOLE, 35388-9, 45633-4, 79181-8 #### [facility] ([id number]) [address] [place] [address] 90985 Potassiumon 10-15-2023 Potassium [Moles/Vol] 3.5 mmol/L 3.5 - 5.0 mmol/L [facility] Potassium [Moles/Vol]on 09-23 [facility] Proteinase 3 IgG IA Qnon Proteinase 3 IgG 0.2 U Normal <0.4 (Negative) [facility] Comment on above: Result Comment: NOTE Test Performed by: [facility] [address] [place] [address] 63846 Ag Equipment Field Service Technician: Ledy Son Ph.D.; CLIA# [id number] Performed By: #### C MARIO POOLE, 48983-6, 40087-6, 25965-8 #### [facility] ([id number]) [address] [place] [address] 70583 Rheumatoid factoron 10-15-19 24 Rheumatoid factor Nephelometry Qn (S) 76 High NINF [facility] Rheumatoid factor Nephelomet ry Qn (S)on 10-15-2023 Interpretation and review of laboratory results Abnormal [facility] RHEUMATOID FACTOR 76 IU/mL High <20 [facility] Comment on above: Performed By: #### C BCA, BMP, 91498-2, 36256-7, 16287-3 #### [facility] ([id number]) [address] [place] [address] 64019 SERUM PROTEIN ELECTROPHORESI Son 10-15-2023 Albumin [Mass/Vol] 2.5 g/dL Low 3.4-5.3 [facility] Comment on above: Performed By: #### C BCA, BMP, 38877-4, 03577-5, 07926-6 #### [facility] ([id number]) [address] [place] [address] 25937 ALPHA 1 GLOBULIN 0.4 g/dL Normal 0.1-0.4 [facility] Comment on above: Performed By: #### C BCA, BMP, 87083-0, 69082-4, 19234-8 #### [facility] ([id number]) [address] [place] [address] 62703 ALPHA 2 GLOBULIN 0.9 g/dL Normal 0.4-1.1 [facility] Comment on above: Performed By: #### C BCA, BMP, 09956-0, 44768-5, 22292-2 #### [facility] ([id number]) [address] [place] [address] 81613 BETA GLOBULIN 0.5 g/dL Normal 0.5-1.2 [facility] Comment on above: Performed By: #### C BCA, BMP, 50247-3, 03854-8, 75459-8 #### [facility] ([id number]) [address] [place] [address] GAMMA GLOBULIN 0.4 g/dL Low 0.5-1.6 [facility] Comment on above: Performed By: #### C BCA, BMP, 64589-6, 45272-7, 36966-0 #### [facility] ([id number]) [address] [place] [address] 74780 PROT. ELECTROPHORESIS INTERP Unremarkable protein distribution, no monoclonal bands. Normal [facility] Comment on above: Performed By: #### C BCA, BMP, 10636-1, 51442-8, 56594-0 #### [facility] ([id number]) [address] [place] [address] 35878 Protein [Mass/Vol] 4.7 g/dL Low 6.0-8.0 [facility] Comment on above: Performed By: #### C BCA, BMP, 40847-1, 85482-6, 99519-4 #### [facility] ([id number]) [address] [place] [address] 59648 Sodium (U) [Moles/Vol]on [facility] Sodium, urine, randomon 09-23 Sodium (U) [Moles/Vol] 86 mmol/L [facility] Troponin I, High Sensitivity 1 Houron 10-15-2023 Troponin I.cardiac High sensitivity method [Mass/Vol] 39 ng/L High NINF - 16 ng/L [facility] Comment on above: Elevations of hs-Troponin may be due to causes other than myocardial ischemia. Recommend serial hs-Troponin testing be performed. For the initial evaluation and management of chest pain patients, refer to the algorithms linked below. Emergency Patient: [email or web address] Inpatient: [email or web address] Troponin I.cardiac High sens itivity method [Mass/Vol]on 10-15-2023 Interpretation and review of laboratory results Abnormal [facility] URINALYSISon 10-15-2023 Bilirubin Ql (U) Negative Normal NEG [facility] Comment on above: Performed By: #### C VIRGILOI, BMP, 08530-3, 28590-8, 69150-5 #### [facility] ([id number]) [address] [place] [address] [place] [address] BLOOD/HGB Large Abnormal NEG [facility] Comment on above: Performed By: #### C VIRGILIO, BMP, 32548-9, 01042-0, 10057-3 #### [facility] ([id number]) [address] [place] [address] 31438 Color (U) YELLOW Normal YELLOW [facility] Comment on above: Performed By: #### C VIRGILIO, BMP, 03377-1, 66171-5, 34568-8 #### [facility] ([id number]) [address] [place] [address] [place] [address] Glucose Ql (U) Negative Normal NEG [facility] Comment on above: Performed By: #### C VIRGILIO, BMP, 21947-9, 15244-5, 01544-7 #### [facility] ([id number]) [address] [place] [address] [place] [address] Ketones Ql (U) Negative Normal NEG [facility] Comment on above: Performed By: #### C VIRGILIO, BMP, 29220-0, 36287-9, 91702-5 #### [facility] ([id number]) [address] [place] [address] [place] [address] Leukocyte esterase Test strip Ql (U) Negative Normal NEG [facility] Comment on above: Performed By: #### C VIRGILIO, BMP, 06221-9, 11963-6, 86187-3 #### [facility] ([id number]) [address] [place] [address] 56621 Nitrite Ql (U) Negative Normal NEG [facility] Comment on above: Performed By: #### C BCA, BMP, 50709-3, 42730-1, 27043-0 #### [facility] ([id number]) [address] [place] [address] 21029 pH (U) 6.0 [pH] Normal 5.0-8.5 [facility] Comment on above: Performed By: #### C BCA, BMP, 70821-2, 26110-5, 94012-5 #### [facility] ([id number]) [address] [place] [address] 70525 Protein Ql (U) >300 Abnormal NEG [facility] Comment on above: Performed By: #### C BCA, BMP, 66490-8, 86009-4, 44185-7 #### [facility] ([id number]) [address] [place] [address] 22252 R.B.CELLS 30 /hpf High 0-5 [facility] Comment on above: Performed By: #### C VIRGILIO, BMP, 77701-6, 29529-9, 40694-0 #### [facility] ([id number]) [address] [place] [address] 95806 Specific gravity (U) [Rel density] 1.025 Normal 1.003-1.[address] [place] [address] Comment on above: Performed By: #### C BCA, BMP, 75401-4, 67309-0, 16407-8 #### [facility] ([id number]) [address] [place] [address] 31391 SQUAMOUS EPITHELIUM 6 /hpf High 0-5 [facility] Comment on above: Performed By: #### C BCA, BMP, , 94600-6, 13567-1 #### [facility] ([id number]) [address] [place] [address] 44106 TURBIDITY CLEAR Normal CLEAR [facility] Comment on above: Performed By: #### C VIRGILIO, MARIO, , 50951-1, 87487-2 #### [facility] ([id number]) [address] [place] [address] 12898 Urobilinogen Qn (U) 0.2 {Micaela'U}/dL Normal <1.1 [facility] Comment on above: Performed By: #### C VIRGILIO, MARIO, , 04219-8, 54958-5 #### [facility] ([id number]) [address] [place] [address] 35099 W.B.CELLS 10 /hpf High 0-5 [facility] Comment on above: Performed By: #### Shahla POOLE, MARIO, , 88373-5, 78493-9 #### [facility] ([id number]) [address] [place] [address] 22869 URINE SODIUM,RANDOMon 2023 Sodium (U) [Moles/Vol] 86 mmol/L [facility] Comment on above: Performed By: #### Shahla POOLE, MARIO, , 06323-2, 06788-5 #### [facility] ([id number]) [address] [place] [address] 35245 Urinalysison 10-15-2023 Bilirubin Ql (U) Negative Negative^N egative [facility] Color (U) YELLOW YELLOW^YEL LOW [facility] Epithelial cells Auto (Urine sed) [#/Area] 6 High [facility] Glucose (U) [Mass/Vol] Negative Negat marva^N egative mg/dL [facility] Hemoglobin Auto test strip Ql (U) Large Abnormal Negative^N egative [facility] Interpretation and review of laboratory results Abnormal [facility] Ketones (U) [Mass/Vol] Negative Negat marva^N egative mg/dL [facility] Leukocyte esterase Auto test strip Ql (U) Negative Negative^N egative [facility] Nitrite Auto test strip Ql (U) Negative Negative^N egative [facility] pH (U) 6.0 [pH] 5.0 - 8.5 [facility] Protein (U) [Mass/Vol] mg/dL Abnormal Negat marva^N egative mg/dL [facility] RBC Auto (Urine sed) [#/Area] 30 High [facility] Specific gravity Refractometry automated (U) [Rel density] 1.025 1.003 - 1.035 [facility] Turbidity Ql (U) CLEAR CLEAR^NUNU R [facility] Urobilinogen Qn (U) 0.2 NINF [facility] WBC Auto (Urine sed) [#/Area] 10 High [facility] Urine Creatinine,randomon Creatinine (U) [Mass/Vol] 102.61 mg/dL [facility] VITAMIN B12on 10-15-2023 Cobalamin (Vitamin B12) [Mass/Vol] 159 pg/mL Low 180-914 [facility] Comment on above: Performed By: #### C MARIO POOLE, 00927-4, 96933-3, 09505-2 #### [facility] ([id number]) [address] [place] [address] Vitamin B12on 10-15-2023 Cobalamin (Vitamin B12) [Mass/Vol] 159 pg/mL Low 180 - 914 pg/mL [facility] BASIC METABOLIC PANLon 10-13 Anion gap [Moles/Vol] 5 mmol/L Normal 5-15 [facility] Comment on above: Performed By: #### C MARIO POOLE, 74463-8, 73656-1, 13558-5 #### [facility] ([id number]) [address] [place], [place] [id number] Calcium [Mass/Vol] 8.1 mg/dL Low 8.5-10.5 [facility] Comment on above: Performed By: #### C BCA, BMP, 96486-0, 03330-2, 98770-5 #### [facility] ([id number]) [address] [place] [address] Chloride [Moles/Vol] 107 mmol/L Normal 98-109 [facility] Comment on above: Performed By: #### C BCA, BMP, 77475-2, 39403-8, 69621-9 #### [facility] [facility] ([id number]) [address] [place] [address] 73062 CO2 [Moles/Vol] 27 mmol/L Normal 22-32 [facility] Comment on above: Performed By: #### C BCA, BMP, 99192-6, 93892-9, 44413-1 #### [facility] ([id number]) [address] [place] [address] 04819 Creatinine [Mass/Vol] 2.56 mg/dL High 0.40-1.00 [facility] Comment on above: Result Comment: METH OD TRACEABLE TO IDMS STANDARD Performed By: #### C BCA, BMP, 58683-2, 39884-8, 31616-4 #### [facility] ([id number]) [address] [place] [address] 49104 GFR/1.73 sq M.predicted among non-blacks MDRD (S/P/Bld) [Vol rate/Area] 21 mL/min/{1.73_m2} Low >59 [facility] Comment on above: Result Comment: Reported eGFR is based on the CKD-EPI 2020 equation that does not use a race coefficient. Performed By: #### C BCA, BMP, 32684-7, 95389-2, 62447-6 #### [facility] ([id number]) [address] [place] [address], [place] [address] Glucose [Mass/Vol] 95 mg/dL Normal 65-99 [facility] Comment on above: Performed By: #### C VIRGILIO, BMP, 39916-2, 29336-4, 58217-6 #### [facility] ([id number]) [address] [place] [address] 49047 Potassium [Moles/Vol] 3.1 mmol/L Low 3.5-5.0 [facility] Comment on above: Performed By: #### C VIRGILIO, BMP, , 63879-4, 41971-6 #### [facility] ([id number]) [address] [place] [address] 09568 Sodium [Moles/Vol] 139 mmol/L Normal 134-146 [facility] Comment on above: Performed By: #### Shahla POOLE, BMP, , 61416-5, 50326-7 #### [facility] ([id number]) [address] [place] [address] 42337 Urea nitrogen [Mass/Vol] 19 mg/dL Normal 5-23 [facility] Comment on above: Performed By: #### C VIRGILIO, BMP, , 55398-0, 86074-1 #### [facility] ([id number]) [address] [place] [address] 85665 Basic Metabolic Panelon 06-2 Anion gap [Moles/Vol] 5 mmol/L 5 - 15 mmol/L [facility] Calcium [Mass/Vol] 8.1 mg/dL Low 8.5 - 10. 5 mg/dL [facility] Chloride [Moles/Vol] 107 mmol/L 98 - 10 9 mmol/L [facility] CO2 [Moles/Vol] 27 mmol/L 22 - 32 mmol/L [facility] Creatinine [Mass/Vol] 2.56 mg/dL High 0.40 - 1.00 mg/dL [facility] Comment on above: METHOD TRACEABLE TO IDMS STANDARD eGFR (CKD-EPI)non-race dependent 21 Low - PINF [facility] Comment on above: Reported eGFR is based on the CKD-EPI 2020 equation that does not use a race coefficient. Glucose [Mass/Vol] 95 mg/dL 65 - 99 mg/dL [facility] Interpretation and review of laboratory results Abnormal [facility] Potassium [Moles/Vol] 3.1 mmol/L Low 3.5 - 5.0 mmol/L [facility] Sodium [Moles/Vol] 139 mmol/L 134 - 146 mmol/L [facility] Urea nitrogen [Mass/Vol] 19 mg/dL 5 - 23 mg/dL [facility] CBC AND AUTO DIFFon 10-14-19 24 ABSOLUTE BASOPHIL 0.1 X10E9/L Normal 0.0-0.2 [facility] Comment on above: Performed By: #### C VIRGILIO BMP, , 86346-3, 24989-3 #### [facility] ([id number]) [address] [place] [address] 63539 ABSOLUTE NEUTROPHIL 5.7 X10E9/L Normal 1.5-6.6 [facility] Comment on above: Performed By: #### C VIRGILIO, BMP, , 39107-6, 02195-0 #### [facility] ([id number]) [address] [place] [address] 51835 Basophils/100 WBC (Bld) 0.7 % Normal [facility] Comment on above: Performed By: #### C BCA, BMP, , 03315-8, 29006-4 #### [facility] ([id number]) [address] [place] [address] 60528 Eosinophils (Bld) [#/Vol] 0.5 10*3/uL High 0.0-0.4 [facility] Comment on above: Performed By: #### C BCA, BMP, , 04675-0, 19451-7 #### [facility] ([id number]) [address] [place] [address] 68561 Eosinophils/100 WBC (Bld) 4.9 % Normal [facility] Comment on above: Performed By: #### C BCA, BMP, 79050-5, 24647-0, 62017-9 #### [facility] ([id number]) [address] [place] [address] 11365 Erythrocyte distribution width (RBC) [Ratio] 14.6 % Normal 11.5-15.0 [facility] Comment on above: Performed By: #### C VIRGILIO, BMP, , 92491-1, 76284-0 #### [facility] ([id number]) [address] [place] [address] 35813 Hematocrit (Bld) [Volume fraction] 33.2 % Low 35-47 [facility] Comment on above: Performed By: #### C VIRGILIO, BMP, , 80699-4, 85756-9 #### [facility] ([id number]) [address] [place] [address] 33406 Hemoglobin (Bld) [Mass/Vol] 10.9 g/dL Low 11.7-15.5 [facility] Comment on above: Performed By: #### C VIRGILIO, BMP, , 33319-3, 35978-9 #### [facility] ([id number]) [address] [place] [address] 51770 Lymphocytes (Bld) [#/Vol] 2.8 10*3/uL Normal 1.0-3.5 [facility] Comment on above: Performed By: #### C BCA, BMP, , 92037-0, 96758-0 #### [facility] ([id number]) [address] [place] [address] 28036 Lymphocytes/100 WBC (Bld) 28.7 % Normal [facility] Comment on above: Performed By: #### C BCA, BMP, 96236-4, 33992-7, 16755-7 #### [facility] ([id number]) [address] [place] [address] 87110 MCH (RBC) [Entitic mass] 27.7 pg Normal 27-34 [facility] Comment on above: Performed By: #### C BCA, BMP, 62539-1, 40540-3, 72876-3 #### [facility] ([id number]) [address] [place] [address] 00401 MCHC (RBC) [Mass/Vol] 32.9 g/dL Normal 32-36 [facility] Comment on above: Performed By: #### C BCA, BMP, 53060-5, 26245-6, 31797-1 #### [facility] ([id number]) [address] [place] [address] 81607 MCV (RBC) [Entitic vol] 84 fL Normal 80-100 [facility] Comment on above: Performed By: #### C BCA, BMP, 39537-2, 48234-5, 91913-5 #### [facility] ([id number]) [address] [place] [address] 89506 Monocytes (Bld) [#/Vol] 0.8 10*3/uL Normal 0-0.9 [facility] Comment on above: Performed By: #### C BCA, BMP, 54264-1, 83513-0, 45819-0 #### [facility] ([id number]) [address] [place] [address] 96811 Monocytes/100 WBC (Bld) 8.1 % Normal [facility] Comment on above: Performed By: #### Shahla BCA, BMP, 23920-5, 37471-8, 74577-9 #### [facility] ([id number]) [address] [place] [address] 58553 Neutrophils/100 WBC (Bld) 57.6 % Normal [facility] Comment on above: Performed By: #### Shahla POOLE, MARIO, , 44648-4, 18016-5 #### [facility] ([id number]) [address] [place] [address] 20099 Platelet mean volume (Bld) [Entitic vol] 8.9 fL Normal 7-12 [facility] Comment on above: Performed By: #### Shahla POOLE, MARIO, , 01859-5, 13898-7 #### [facility] ([id number]) [address] [place] [address] 79974 Platelets (Bld) [#/Vol] 319 10*3/uL Normal 150-450 [facility] Comment on above: Performed By: #### MARIO Gale BCA, , 93948-1, 28572-6 #### [facility] ([id number]) [address] [place] [address] 97749 RBC COUNT 3.95 X10E12/L Normal 3.80-5.20 [facility] Comment on above: Performed By: #### MARIO Gale BCA, , 14533-7, 36213-9 #### [facility] ([id number]) [address] [place] [address] 59539 WBC (Bld) [#/Vol] 9.9 10*3/uL Normal 4.0-11.0 [facility] Comment on above: Performed By: #### Shahla POOLE, BMP, , 75054-8, 88768-3 #### [facility] ([id number]) [address] [place] [address] 01027 CBC auto differentialon 09-23 Basophils (Bld) [#/Vol] 0.1 10*3/uL [facility] Basophils/100 WBC (Bld) 0.7 % P [facility] Eosinophils (Bld) [#/Vol] 0.5 10*3/uL High [facility] Eosinophils/100 WBC (Bld) 4.9 % [facility] Erythrocyte distribution width (RBC) [Ratio] 14.6 % 11.5 - 15.0 % [facility] Hematocrit (Bld) [Volume fraction] 33.2 % Low 35 - 47 % [facility] Hemoglobin (Bld) [Mass/Vol] 10.9 g/dL Low 11.7 - 15.5 g/dL [facility] Interpretation and review of laboratory results Abnormal [facility] Lymphocytes (Bld) [#/Vol] 2.8 10*3/uL [facility] Lymphocytes/100 WBC (Bld) 28.7 % [facility] MCH (RBC) [Entitic mass] 27.7 pg 27 - 34 pg [facility] MCHC (RBC) [Mass/Vol] 32.9 g/dL 32 - 3 6 g/dL [facility] MCV (RBC) [Entitic vol] 84 fL 80 - 100 fL [facility] Monocytes (Bld) [#/Vol] 0.8 10*3/uL [facility] Monocytes/100 WBC (Bld) 8.1 % P [facility] Neutrophils (Bld) [#/Vol] 5.7 10*3/uL [facility] Neutrophils/100 WBC (Bld) 57.6 % [facility] Platelet mean volume (Bld) [Entitic vol] 8.9 fL 7 - 12 fL [facility] Platelets (Bld) [#/Vol] 319 10*3/uL [facility] RBC (Bld) [#/Vol] 3.95 10*6/uL [facility] WBC corrected for nucl RBC Auto (Bld) [#/Vol] 9.9 [facility] ECG 12 leadOrdered By: Mauricio Huber on 10-14-2023 [facility] MAGNESIUMon 10-14-2023 Magnesium [Mass/Vol] 1.8 mg/dL Normal 1.8-2.6 [facility] Comment on above: Performed By: #### C VIRGILIO MARIO, 49953-9, 87951-2, 15927-4 #### [facility] ([id number]) [address] [place] [address] 05238 Magnesiumon 10-14-2023 Magnesium [Mass/Vol] 1.8 mg/dL 1.8 - 2 .6 mg/dL [facility] Natriuretic peptide B [Mass/ Vol]on 10-14-2023 Interpretation and review of laboratory results Abnormal [facility] Natriuretic peptide B (Bld) [Mass/Vol] 427 pg/mL High NINF - 100.0 pg/mL [facility] Natriuretic peptide B (Bld) [Mass/Vol] 427 pg/mL High <100.0 [facility] Comment on above: Performed By: #### C VIRGILIO MARIO, 89120-8, 71885-5, 74732-1 #### [facility] ([id number]) [address] [place] [address] 03080 No Panel Informationon 10-13 [facility] Troponin I, High Sensitivity on 10-14-2023 Troponin I.cardiac High sensitivity method [Mass/Vol] 39 ng/L High NINF - 16 ng/L [facility] Comment on above: Elevations of hs-Troponin may be due to causes other than myocardial ischemia. Recommend serial hs-Troponin testing be performed. For the initial evaluation and management of chest pain patients, refer to the algorithms linked below. Emergency Patient: [email or web address] Inpatient: [email or web address] 5&uh=acaea Troponin I.cardiac High sens itivity method [Mass/Vol]on 10-14-2023 1 HOUR TROP I, HIGH SENSITIVITY 39 ng/L High <16 [facility] Comment on above: Result Comment: Elevations of hs-Troponin may be due to causes other than myocardial ischemia. Recommend serial hs-Troponin testing be performed. For the initial evaluation and management of chest pain patients, refer to the algorithms linked below. Emergency Patient: [email or web address]&uh=[email or web address] Inpatient: [email or web address] 5&uh=acaea Performed By: #### 8 9579-7 #### [facility] ([id number]) [address] [place] [address] 65525 Interpretation and review of laboratory results [facility] TROPONIN I, HIGH SENSITIVITY 39 ng/L High <16 [facility] Comment on above: Result Comment: Elevations of hs-Troponin may be due to causes other than myocardial ischemia. Recommend serial hs-Troponin testing be performed. For the initial evaluation and management of chest pain patients, refer to the algorithms linked below. Emergency Patient: [email or web address]&uh=acaea Inpatient: [email or web address] 5&uh=acaea Performed By: #### C BCA, BMP, 82812-8, 22908-3, 77838-3 #### [facility] ([id number]) [address] [place] [address] 14702 XR CHEST 1 VWon 10-14-2023 XR CHEST 1 VW XR CHEST 1 VW Single view chest History: Difficulty breathing, shortness of breath Comparison: 01/01/2021 Impression: 1. Low lung volumes and hypoventilatory change, Central pulmonary vascular congestion without overt pulmonary edema. No sizable pleural effusion, no definite pneumothorax. 2. Borderline cardiomegaly. Finalized by Naren Morris MD on 10/14/2023 11:39 PM Normal [facility] XR Chest Single viewon 10-13 Single view chest History: Difficulty breathing, shortness of breath Comparison: 01/01/2021 Impression: 1. Low lung volumes and hypoventilatory change, Central pulmonary vascular congestion without overt pulmonary edema. No sizable pleural effusion, no definite pneumothorax. 2. Borderline cardiomegaly. Finalized by Naren Morris MD on 10/14/2023 11:39 PM SECTRANaren Alexander MD - 10/14/2023 Single view chest History: Difficulty breathing, shortness of breath Comparison: 01/01/2021 Impression: 1. Low lung volumes and hypoventilatory change, Central pulmonary vascular congestion without overt pulmonary edema. No sizable pleural effusion, no definite pneumothorax. 2. Borderline cardiomegaly. Finalized by Naren Morris MD on 10/14/2023 11:39 PM [facility] Radiology Study observation (narrative) [facility] XR Chest Single viewOrdered By: Naren Morris on 10-14-2023 [facility] Work Phone: ANTIBODY ID PANELon 01-03-20 ANTIBODY ID PANEL Antibody ID Anti-Jka Normal [facility] Comment on above: Performed By: #### C MP, HSTROPN #### [facility] [address] [place] [address] Dr. Steve Valentin CBC AUTO DIFFon 12-31-2021 BASO # 0.0 103/ul Normal 0.0-0.1 [facility] Comment on above: Performed By: #### C MP, HSTROPN #### [facility] [address] [address] [address] Steve Valentin Basophils/100 WBC (Bld) 0.9 % Normal 0.2-2.0 [facility] Comment on above: Performed By: #### C MP, HSTROPN #### [facility] [address] [address] [address] Steve Valentin EO # 0.2 103/ul Normal 0.0-0.[address] [facility] Comment on above: Performed By: #### C TABBY, HSTROPN #### [facility] [address] [place] [address] Dr. Steve Valentin Eosinophils/100 WBC (Bld) 4.3 % Normal 0.9-7.[address] [facility] Comment on above: Performed By: #### C TABBY, HSTROPN #### [facility] [address] [place] [address] Dr. Steve Valentin Erythrocyte distribution width (RBC) [Ratio] 14.1 % Normal 11.0-15.0 [facility] Comment on above: Performed By: #### C TABBY, HSTROPN #### [facility] [address] [place] [address] Dr. Steve Valentin Hematocrit (Bld) [Volume fraction] 34.6 % Critically low 36.0-48.0 [facility] Comment on above: Performed By: #### C TABBY, HSTROPN #### [facility] [address] [place] [address] Dr. Steve Valentin Hemoglobin (Bld) [Mass/Vol] 10.9 g/dL Critically low 12.0-16.0 [facility] Comment on above: Performed By: #### C TABBY, HSTROPN #### [facility] [address] [place] [address] Dr. Steve Valentin IG # 0.01 10e3/ul Normal 0.00-0.[address] [facility] Comment on above: Performed By: #### C TABBY, HSTROPN #### [facility] [address] [place] [address] Dr. Steve Valentin IG % 0.3 % Normal 0.0-0.[address] [facility] Comment on above: Performed By: #### C MP, HSTROPN #### [facility] [address] [place] [address] Dr. Steve Valentin LYMPH # 0.9 103/ul Critically low 1.2-3.8 [facility] Comment on above: Performed By: #### C TABBY, HSTROPN #### [facility] [address] [place] [address] Dr. Steve Valentin Lymphocytes/100 WBC (Bld) 26.3 % Normal 20.5-60.0 [facility] Comment on above: Performed By: #### C MP, HSTROPN #### [facility] [address] [place] [address] Dr. Steve Valentin MANUAL DIFF REQ NO Normal [facility] Comment on above: Performed By: #### C MP, HSTROPN #### [facility] [address] [place] [address] Dr. Steve Valentin MCH (RBC) [Entitic mass] 26.7 pg Normal 26.7-34.0 [facility] Comment on above: Performed By: #### C MP, HSTROPN #### [facility] [address] [place] [address] Dr. Steve Valentin MCHC (RBC) [Mass/Vol] 31.5 g/dL Normal 29.9-35.2 [facility] Comment on above: Performed By: #### C MP, HSTROPN #### [facility] [address] [place] [address] Dr. Steve Valentin MCV (RBC) [Entitic vol] 84.8 fL Normal 81.0-99.0 [facility] Comment on above: Performed By: #### C MP, HSTROPN #### [facility] [address] [place] [address] Dr. Steve Valentin MONO # 0.3 103/ul Normal 0.3-0.8 [facility] Comment on above: Performed By: #### C MP, HSTROPN #### [facility] [address] [place] [address] Dr. Steve Valentin Monocytes/100 WBC (Bld) 9.5 % Normal 1.7-12.0 [facility] Comment on above: Performed By: #### C MP, HSTROPN #### [facility] [address] [place] [address] Dr. Steve Valentin NEUT # 2.0 103/ul Normal 1.4-6.5 [facility] Comment on above: Performed By: #### C TABBY, HSTROPN #### [facility] [address] [address] [address] Steve Valentin Neutrophils/100 WBC (Bld) 58.7 % Normal 43.0-75.0 [facility] Comment on above: Performed By: #### C TABBY, HSTROPN #### [facility] [address] [address] [address] Steve Valentin Platelet mean volume (Bld) [Entitic vol] 10.5 fL Normal 9.5-13.5 [facility] Comment on above: Performed By: #### C TABBY, HSTROPN #### [facility] [address] [place] [address] Dr. Steve Valentin PLT 164 103/ul Normal 150-450 [facility] Comment on above: Performed By: #### C TABBY, HSTROPN #### [facility] [address] [place] [address] Dr. Steve Valentin RBC 4.08 106/ul Critically low 4.20-5.40 [facility] Comment on above: Performed By: #### C TABBY, HSTROPN #### [facility] [address] [place] [address] Dr. Steve Valentin WBC 3.5 103/ul Critically low 4.0-11.0 [facility] Comment on above: Performed By: #### C TABBY, HSTROPN #### [facility] [address] [place] [address] Dr. Steve Valentin PROF 14(COMP METB)on 022 Albumin [Mass/Vol] 3.0 g/dL Critically low 3.4-5.0 [facility] Comment on above: Performed By: #### C MP #### [facility] [address] [place] [address] Dr. Steve Valentin Albumin/Globulin [Mass ratio] 1.0 {ratio} Normal [facility] Comment on above: Performed By: #### C MP #### [facility] [address] [place] [address] Dr. Steve Valentin ALP [Catalytic activity/Vol] 56 U/L Normal 46-116 [facility] Comment on above: Performed By: #### C MP #### [facility] [address] [address] [address] Steve Valentin ALT [Catalytic activity/Vol] 20 U/L Normal 14-59 [facility] Comment on above: Performed By: #### C MP #### [facility] [address] [place] [address] Dr. Steve Valentin Anion gap [Moles/Vol] 9.3 mmol/L Normal [facility] Comment on above: Performed By: #### C MP #### [facility] [address] [place] [address] Dr. Steve Valentin AST [Catalytic activity/Vol] 17 U/L Normal 15-37 [facility] Comment on above: Performed By: #### C MP #### [facility] [address] [place] [address] Dr. Steve Valentin Bilirubin [Mass/Vol] 0.2 mg/dL Normal 0.2-1.0 [facility] Comment on above: Performed By: #### C MP #### [facility] [address] [place] [address] Dr. Steve Valentin Calcium [Mass/Vol] 8.8 mg/dL Normal 8.5-10.1 [facility] Comment on above: Performed By: #### C MP #### [facility] [address] [place] [address] Dr. Steve Valentin Chloride [Moles/Vol] 106 mmol/L Normal 98-107 [facility] Comment on above: Performed By: #### C MP #### [facility] [address] [place] [address] Dr. Steve Valentin CO2 [Moles/Vol] 26.5 mmol/L Normal 21.0-32.0 [facility] Comment on above: Performed By: #### C MP #### [facility] [address] [place] [address] Dr. Steve Valentin Creatinine [Mass/Vol] 0.92 mg/dL Normal 0.55-1.02 [facility] Comment on above: Performed By: #### C MP #### [facility] [address] [place] [address] Dr. Steve Valentin EGFR-AF SRI LANKAN >60 Normal >=60 [facility] Comment on above: Performed By: #### C MP #### [facility] [address] [address] [address] Steve Valentin EGFR-NON AF SRI LANKAN >60 Normal >=60 [facility] Comment on above: Performed By: #### C MP #### [facility] [address] [place] [address] Dr. Steve Valentin Globulin (S) [Mass/Vol] 2.9 g/dL Normal [facility] Comment on above: Performed By: #### C MP #### [facility] [address] [place] [address] Dr. Steve Valentin Glucose [Mass/Vol] 97 mg/dL Normal 74-106 [facility] Comment on above: Performed By: #### C MP #### [facility] [address] [place] [address] Dr. Steve Valentin Potassium [Moles/Vol] 3.8 mmol/L Normal 3.5-5.1 [facility] Comment on above: Performed By: #### C MP #### [facility] [address] [place] [address] Dr. Steve Valentin Protein [Mass/Vol] 5.9 g/dL Critically low 6.4-8.2 [facility] Comment on above: Performed By: #### C MP #### [facility] [address] [place] [address] Dr. Steve Valentin Sodium [Moles/Vol] 138 mmol/L Normal 136-145 [facility] [facility] Comment on above: Performed By: #### C MP #### [facility] [address] [place] [address] Dr. Steve Valentin Urea nitrogen [Mass/Vol] 5.0 mg/dL Critically low 7.0-18. 0 [facility] Comment on above: Performed By: #### C MP #### [facility] [address] [place] [address] Dr. Steve Valentin Urea nitrogen/Creatinine [Mass ratio] 5.4 mg/mg Normal [facility] Comment on above: Performed By: #### C MP #### [facility] [address] [place] [address] Dr. Steve Valentin CBC AUTO DIFFon 12-30-2021 BASO # 0.0 103/ul Normal 0.0-0.1 [facility] Comment on above: Performed By: #### C BC #### [facility] [address] [place] [address] Dr. Steve Valentin Basophils/100 WBC (Bld) 0.5 % Normal 0.2-2.0 [facility] Comment on above: Performed By: #### C BC #### [facility] [address] [place] [address] Dr. Steve Valentin EO # 0.1 103/ul Normal 0.0-0.7 [facility] Comment on above: Performed By: #### C BC #### [facility] [address] [place] [address] Dr. Steve Valentin Eosinophils/100 WBC (Bld) 3.2 % Normal 0.9-7.0 [facility] Comment on above: Performed By: #### C BC #### [facility] [address] [place] [address] Dr. Steve Valentin Erythrocyte distribution width (RBC) [Ratio] 14.0 % Normal 11.0-15.0 [facility] Comment on above: Performed By: #### C BC #### [facility] [address] [place] [address] Dr. Steve Valentin Hematocrit (Bld) [Volume fraction] 38.3 % Normal 36.0-48.0 [facility] Comment on above: Performed By: #### C BC #### [facility] [address] [place] [address] Dr. Steve Valentin Hemoglobin (Bld) [Mass/Vol] 11.7 g/dL Critically low 12.0-16.0 [facility] Comment on above: Performed By: #### C BC #### [facility] [address] [place] [address] Dr. Steve Valentin IG # 0.01 10e3/ul Normal 0.00-0.03 [facility] Comment on above: Performed By: #### C BC #### [facility] [address] [place] [address] Dr. Steve Valentin IG % 0.2 % Normal 0.0-0.5 [facility] Comment on above: Performed By: #### C BC #### [facility] [address] [place] [address] Dr. Steve Valentin LYMPH # 1.3 103/ul Normal 1.2-3.8 [facility] Comment on above: Performed By: #### C BC #### [facility] [address] [place] [address] Dr. Steve Valentin Lymphocytes/100 WBC (Bld) 29.6 % Normal 20.5-60.0 [facility] Comment on above: Performed By: #### C BC #### [facility] [address] [place] [address] Dr. Steve Valentin MANUAL DIFF REQ NO Normal [facility] Comment on above: Performed By: #### C BC #### [facility] [address] [place] [address] Dr. Steve Valentin MCH (RBC) [Entitic mass] 26.0 pg Critically low 26.7-34 .0 [facility] Comment on above: Performed By: #### C BC #### [facility] [address] [place] [address] Dr. Steve Valentin MCHC (RBC) [Mass/Vol] 30.5 g/dL Normal 29.9-35.2 [facility] Comment on above: Performed By: #### C BC #### [facility] [address] [place] [address] Dr. Steve Valentin MCV (RBC) [Entitic vol] 85.1 fL Normal 81.0-99.0 [facility] Comment on above: Performed By: #### C BC #### [facility] [address] [place] [address] Dr. Steve Valentin MONO # 0.5 103/ul Normal 0.3-0.8 [facility] Comment on above: Performed By: #### C BC #### [facility] [address] [place] [address] Dr. Steve Valentin Monocytes/100 WBC (Bld) 10.6 % Normal 1.7-12.0 [facility] Comment on above: Performed By: #### C BC #### [facility] [address] [place] [address] Dr. Steve Valentin NEUT # 2.4 103/ul Normal 1.4-6.5 [facility] Comment on above: Performed By: #### C BC #### [facility] [address] [place] [address] Dr. Steve Valentin Neutrophils/100 WBC (Bld) 55.9 % Normal 43.0-75.0 [facility] Comment on above: Performed By: #### C BC #### [facility] [address] [place] [address] Dr. Steve Valentin Platelet mean volume (Bld) [Entitic vol] 10.0 fL Normal 9.5-13.5 [facility] Comment on above: Performed By: #### C BC #### [facility] [address] [place] [address] Dr. Steve Valentin PLT 169 103/ul Normal 150-450 [facility] Comment on above: Performed By: #### C BC #### [facility] [address] [place] [address] Dr. Steve Valentin RBC 4.50 106/ul Normal 4.20-5.40 [facility] Comment on above: Performed By: #### C BC #### [facility] [address] [place] [address] Dr. Steve Valentin WBC 4.4 103/ul Normal 4.0-11.0 [facility] Comment on above: Performed By: #### C BC #### [facility] [address] [address] [address] Steve Valentin BASO # 0.0 103/ul Normal 0.0-0.1 [facility] Comment on above: Performed By: #### C BC #### [facility] [address] [address] [address] Steve Valentin Basophils/100 WBC (Bld) 0.4 % Normal 0.2-2.0 [facility] Comment on above: Performed By: #### C BC #### [facility] [address] [place] [address] Dr. Steve Valentin EO # 0.2 103/ul Normal 0.0-0.7 [facility] Comment on above: Performed By: #### C BC #### [facility] [address] [place] [address] Dr. Steve Valentin Eosinophils/100 WBC (Bld) 2.6 % Normal 0.9-7.0 [facility] Comment on above: Performed By: #### C BC #### [facility] [address] [place] [address] Dr. Steve Valentin Erythrocyte distribution width (RBC) [Ratio] 13.9 % Normal 11.0-15.0 [facility] Comment on above: Performed By: #### C BC #### [facility] [address] [place] [address] Dr. Steve Valentin Hematocrit (Bld) [Volume fraction] 39.1 % Normal 36.0-48.0 [facility] Comment on above: Performed By: #### C BC #### [facility] [address] [place] [address] Dr. Steve Valentin Hemoglobin (Bld) [Mass/Vol] 12.3 g/dL Normal 12.0-16.0 [facility] Comment on above: Performed By: #### C BC #### [facility] [address] [place] [address] Dr. Steve Valentin IG # 0.02 10e3/ul Normal 0.00-0.03 [facility] Comment on above: Performed By: #### C BC #### [facility] [address] [address] [address] Steve Valentin IG % 0.4 % Normal 0.0-0.5 [facility] Comment on above: Performed By: #### C BC #### [facility] [address] [place] [address] Dr. Steve Valentin LYMPH # 1.1 103/ul Critically low 1.2-3.8 [facility] Comment on above: Performed By: #### C BC #### [facility] [address] [place] [address] Dr. Steve Valentin Lymphocytes/100 WBC (Bld) 18.9 % Critically low 20.5-60.0 [facility] Comment on above: Performed By: #### C BC #### [facility] [address] [place] [address] Dr. Steve Valentin MANUAL DIFF REQ NO Normal [facility] Comment on above: Performed By: #### C BC #### [facility] [address] [place] [address] Dr. Steve Valentin MCH (RBC) [Entitic mass] 26.3 pg Critically low 26.7-34 .0 [facility] Comment on above: Performed By: #### C BC #### [facility] [address] [place] [address] Dr. Steve Valentin MCHC (RBC) [Mass/Vol] 31.5 g/dL Normal 29.9-35.2 [facility] Comment on above: Performed By: #### C BC #### [facility] [address] [place] [address] Dr. Steve Valentin MCV (RBC) [Entitic vol] 83.7 fL Normal 81.0-99.0 [facility] Comment on above: Performed By: #### C BC #### [facility] [address] [place] [address] Dr. Steve Valentin MONO # 0.6 103/ul Normal 0.3-0.8 [facility] Comment on above: Performed By: #### C BC #### [facility] [address] [place] [address] Dr. Steve Valentin Monocytes/100 WBC (Bld) 10.0 % Normal 1.7-12.0 [facility] Comment on above: Performed By: #### C BC #### [facility] [address] [place] [address] Dr. Steve Valentin NEUT # 3.9 103/ul Normal 1.4-6.5 [facility] Comment on above: Performed By: #### C BC #### [facility] [address] [place] [address] Dr. Steve Valentin Neutrophils/100 WBC (Bld) 67.7 % Normal 43.0-75.0 [facility] Comment on above: Performed By: #### C BC #### [facility] [address] [place] [address] Dr. Steve Valentin Platelet mean volume (Bld) [Entitic vol] 10.0 fL Normal 9.5-13.5 [facility] Comment on above: Performed By: #### C BC #### [facility] [address] [place] [address] Dr. Steve Valentin PLT 200 103/ul Normal 150-[address] [facility] Comment on above: Performed By: #### C BC #### [facility] [address] [place] [address] Dr. Steve Valentin RBC 4.67 106/ul Normal 4.20-5.40 [facility] Comment on above: Performed By: #### C BC #### [facility] [address] [place] [address] Dr. Steve Valentin WBC 5.7 103/ul Normal 4.0-11.0 [facility] Comment on above: Performed By: #### C BC #### [facility] [address] [place] [address] ABD/PELV W CONon [...] COSTA Date: 2021-12-30 08:[address] [facility] Covid-19 PCR ([facility]on SARS-CoV-2 (COVID-19) RNA RADHA+probe Ql (Unsp spec) Not detected Normal NOT DETECTED [facility] Comment on above: Result Comment: When [...] for this test is supported by the [place] of Health and Human Service's declaration that [...] Performed By: #### C VDTBH #### [facility] [address] [place] [address] Dr. Steve Valentin DIRECT COOMBSon 12-30-2021 DIRECT AMARJIT Negative Normal [facility] Comment on above: Performed By: #### C MP, HSTROPN #### [facility] [address] [place] [address] Dr. Steve Valentin LACTATE/LACTIC ACIDon 2021 Lactate [Moles/Vol] 1.2 mmol/L Normal 0.4-1.9 [facility] Comment on above: Performed By: #### L ACT #### [facility] [address] [place] [address] Dr. Steve Valentin PROF 14(COMP METB)on 022 Albumin [Mass/Vol] 3.4 g/dL Normal 3.4-5.0 [facility] Comment on above: Performed By: #### C MP, HSTROPN #### [facility] [address] [place] [address] Dr. Steve Valentin Albumin/Globulin [Mass ratio] 1.1 {ratio} Normal [facility] Comment on above: Performed By: #### C MP, HSTROPN #### [facility] [address] [place] [address] Dr. Steve Valentin ALP [Catalytic activity/Vol] 66 U/L Normal 46-116 [facility] Comment on above: Performed By: #### C MP, HSTROPN #### [facility] [address] [place] [address] Dr. Steve Valentin ALT [Catalytic activity/Vol] 18 U/L Normal 14-59 [facility] Comment on above: Performed By: #### C MP, HSTROPN #### [facility] [address] [place] [address] Dr. Steve Valentin Anion gap [Moles/Vol] 9.1 mmol/L Normal [facility] Comment on above: Performed By: #### C MP, HSTROPN #### [facility] [address] [address] [address] Steve Valentin AST [Catalytic activity/Vol] 14 U/L Critically low 15-37 [facility] Comment on above: Performed By: #### C MP, HSTROPN #### [facility] [address] [place] [address] Dr. Steve Valentin Bilirubin [Mass/Vol] 0.3 mg/dL Normal 0.2-1.0 [facility] Comment on above: Performed By: #### C MP, HSTROPN #### [facility] [address] [place] [address] Dr. Steve Valentin Calcium [Mass/Vol] 9.2 mg/dL Normal 8.5-10.1 [facility] Comment on above: Performed By: #### C MP, HSTROPN #### [facility] [address] [place] [address] Dr. Steve Valentin Chloride [Moles/Vol] 104 mmol/L Normal 98-107 [facility] Comment on above: Performed By: #### C MP, HSTROPN #### [facility] [address] [place] [address] Dr. Steve Valentin CO2 [Moles/Vol] 25.5 mmol/L Normal 21.0-32.0 [facility] Comment on above: Performed By: #### C MP, HSTROPN #### [facility] [address] [place] [address] Dr. Steve Valentin Creatinine [Mass/Vol] 0.94 mg/dL Normal 0.55-1.02 [facility] Comment on above: Performed By: #### C MP, HSTROPN #### [facility] [address] [place] [address] Dr. Steve Valentin EGFR-AF SRI LANKAN >60 Normal >=60 [facility] Comment on above: Performed By: #### C MP, HSTROPN #### [facility] [address] [place] [address] Dr. Steve Valentin EGFR-NON AF SRI LANKAN >60 Normal >=60 [facility] Comment on above: Performed By: #### C MP, HSTROPN #### [facility] [address] [address] [address] Steve Valentin Globulin (S) [Mass/Vol] 3.1 g/dL Normal [facility] Comment on above: Performed By: #### C MP, HSTROPN #### [facility] [address] [place] [address] Dr. Steve Valentin Glucose [Mass/Vol] 98 mg/dL Normal 74-106 [facility] Comment on above: Performed By: #### C MP, HSTROPN #### [facility] [address] [place] [address] Dr. Steve Valentin Potassium [Moles/Vol] 3.6 mmol/L Normal 3.5-5.1 [facility] Comment on above: Performed By: #### C MP, HSTROPN #### [facility] [address] [place] [address] Dr. Steve Valentin Protein [Mass/Vol] 6.5 g/dL Normal 6.4-8.2 [facility] Comment on above: Performed By: #### C MP, HSTROPN #### [facility] [address] [place] [address] Dr. Steve Valentin Sodium [Moles/Vol] 135 mmol/L Critically low 136-145 [facility] Comment on above: Performed By: #### C MP, HSTROPN #### [facility] [address] [place] [address] Dr. Steve Valentin Urea nitrogen [Mass/Vol] 11.0 mg/dL Normal 7.0-18.0 [facility] Comment on above: Performed By: #### C MP, HSTROPN #### [facility] [address] [place] [address] Dr. Steve Valentin Urea nitrogen/Creatinine [Mass ratio] 11.7 mg/mg Normal [facility] Comment on above: Performed By: #### C MP, HSTROPN #### [facility] [address] [place], [place] [address] Dr. Steve Valentin TROPONIN, HIGH SENSITIVITYon 12-30-2021 HSTROP 8.6 pg/mL Normal 4.0-51.[address] [facility] Comment on above: Result Comment: CUT- OFF POINTS HAVE BEEN ESTABLISHED BASED ON THE FOURTH UNIVERSAL DEFINITIONS OF MYOCARDIAL INFARCTION. THE UPPER REFERENCE LIMIT (URL) OF TROPONIN, DEFINED THE 99TH PERCENTILE OF cTnI DISTRIBUTION IN A REFERENCE POPULATION, HAS BEEN CONFIRMED THE DECISION THRESHOLD FOR PR DIAGNOSIS. Performed By: #### C MP, HSTROPN #### [facility] [address] [place], [place] [address] Dr. Steve Valentin TYPE AND SCREENon 12-30-2021 TYPE AND SCREEN Positive Normal [facility] Comment on above: Performed By: #### T NS #### [facility] [address] [place], [place] [address] Dr. Steve Valentin XR CERVICAL SPINE (2-3 [...] Yaritza Pinedo MD 01/20/20 Final result Normal [facility] Multilevel degenerative changes [place], [place] EXAMINATION: XRAY VIEWS OF THE CERVICAL [...] dislocation or significant prevertebral soft tissue swelling [place], [place] [employer], [employer] Incoming Radiant Results From [employer] - 01/20/2020 11:34 AM EDT EXAMINATION: XRAY [...] soft tissue swelling IMPRESSION: Multilevel degenerative changes [place], [place] XR LUMBAR SPINE (2-3 VIEWS)o n [...] Mitesh Ho MD 01/20/20 Final result Normal [facility] No acute abnormality lumbosacral spine. Degenerative findings most severe at L5-S1, with evidence DDD. [facility] [place] EXAMINATION: THREE XRAY VIEWS OF THE LUMBAR [...] Large amount of retained stool right [facility]. [facility] Incoming Radiant Results From [employer] - 01/20/2020 12:11 PM EDT EXAMINATION: THREE [...] most severe at L5-S1, with evidence DDD. [facility] [employer] [facility] Hematologyon 01-25-2018 Basophils Auto #/vol (Bld) 0.7 % Invalid Interpretation Code [facility] Basophils/100 WBC Auto (Bld) 0.0 K/uL Invalid Interpretation Code 0.0-0.1 [facility] Eosinophils/100 WBC Auto (Bld) 3.2 % Invalid Interpretation Code [facility] Erythrocyte distribution width Auto Ratio (RBC) 14.2 % Invalid Interpretation Code 10.8-14.8 [facility] Hematocrit Auto Volume Fraction (Bld) 34.70 % Invalid Interpretation Code 36.0-48.0 [facility] Hemoglobin S Solubility test Ql (Bld) 11.7 Invalid Interpretation Code 12.0-16.0 [facility] Lymphocytes/100 WBC Auto (Bld) 43.3 % Invalid Interpretation Code [facility] MCH Auto Entitic mass (RBC) 27.1 pg Invalid Interpretation Code 27.0-34.0 [facility] MCHC Auto mass conc (RBC) 33.7 g/dL Invalid Interpretation Code 31.0-36.0 [facility] MCV Auto Entitic volume (RBC) 80.5 fL Invalid Interpretation Code 80.-100. [facility] Monocytes/100 WBC Auto (Bld) 6.5 % Invalid Interpretation Code [facility] Neutrophils/100 WBC Auto (Bld) 46.1 % Invalid Interpretation Code [facility] Nucleated RBC/100 WBC Ratio (Bld) 0.1 10*3/uL Invalid Interpretation Code 0.1-0.4 [facility] Nucleated RBC/100 WBC Ratio (Bld) 1.9 10*3/uL Invalid Interpretation Code 0.8-5.2 [facility] Nucleated RBC/100 WBC Ratio (Bld) 0.3 10*3/uL Invalid Interpretation Code 0.1-0.9 [facility] Nucleated RBC/100 WBC Ratio (Bld) 2.0 10*3/uL Invalid Interpretation Code 1.3-9.1 [facility] RBC Auto #/vol (Bld) 4.310 10*6/uL Invalid Interpretation Code 4.00-5.50 [facility] Metabolic Panelon 01-25-2018 Albumin mass conc 4.10 g/dL Invalid Interpretation Code 3.5-5.2 [facility] ALP enzyme act/vol 50 U/L Invalid Interpretation Code 30-111 [facility] ALT enzyme act/vol 14 U/L Invalid Interpretation Code 5-40 [facility] Anion gap 3 molar conc 12 mmol/L Invalid Interpretation Code 10-19 [facility] AST enzyme act/vol 13 U/L Invalid Interpretation Code 9-40 [facility] Calcium mass conc 9.90 mg/dL Invalid Interpretation Code 8.5-10.5 [facility] Chloride molar conc 103 mmol/L Invalid Interpretation Code 95-107 [facility] CO2 molar conc 28 mmol/L Invalid Interpretation Code 19-31 [facility] Creatinine mass conc 1.0 mg/dL Invalid Interpretation Code 0.6-1.3 [facility] Glucose mass conc 89 mg/dL Invalid Interpretation Code 70-99 [facility] Potassium molar conc 4.30 mmol/L Invalid Interpretation Code 3.5-5.4 [facility] Protein mass conc 6.0 g/dL Invalid Interpretation Code 6.1-8.3 [facility] Protein mass conc 0.59 g/dL Invalid Interpretation Code <0.5 [facility] Sodium molar conc 143 mmol/L Invalid Interpretation Code 135-146 [facility] Urea nitrogen mass conc 14.0 mg/dL Invalid Interpretation Code 8-23 [facility] Otheron 01-25-2018 Bilirubin Ql (U) 0.2 Invalid Interpretation Code <1.3 [facility] WBC LM Ql (Sput) 4.4 Invalid Interpretation Code 3.7-10.8 [facility] 74.5 Invalid Interpretation Code >59 [facility] 237 Invalid Interpretation Code 150.-450. 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 Normal [facility] HIM IP Note OR Bottling Supervisor Normal [facility] Otheron 09-20-2017 3 Invalid Interpretation Code [facility] 3 Invalid Interpretation Code [facility] Cardiacon 09-14-2017 Cholesterol 220 mg/dL Invalid Interpretation Code <200 [facility] HDL Cholesterol 77.0 mg/dL Invalid Interpretation Code >39 [facility] Triglyceride 113.0 mg/dL Invalid Interpretation Code <150 [facility] Hematologyon 09-14-2017 Basophils Auto #/vol (Bld) 1.0 % Invalid Interpretation Code [facility] Basophils/100 WBC Auto (Bld) 0.1 K/uL Invalid Interpretation Code 0.0-0.1 [facility] [email or web address] Eosinophils/100 leukocytes 2.9 % Invalid Interpretation Code [facility] [email or web address] Erythrocyte distribution width Auto Ratio (RBC) 14.1 % Invalid Interpretation Code 10.8-14.8 [facility] Erythrocytes (RBC) 4.230 10*6/uL Invalid Interpretation Code 4.00-5.50 [facility] Hematocrit (HCT) 37.0 % Invalid Interpretation Code 36.0-48.0 [facility] [email or web address] Hemoglobin S presence 11.7 Invalid Interpretation Code 12.0-16.0 [facility] [email or web address] Lipoprotein a mass conc 0.2 10*3/uL Invalid Interpretation Code 0.1-0.4 [facility] Lipoprotein a mass conc 2.0 10*3/uL Invalid Interpretation Code 0.8-5.2 [facility] Lipoprotein a mass conc 0.5 10*3/uL Invalid Interpretation Code 0.1-0.9 [facility] Lipoprotein a mass conc 2.6 10*3/uL Invalid Interpretation Code 1.3-9.1 [facility] Lymphocytes/100 leukocytes 37.6 % Invalid Interpretation Code [facility] MCH 27.7 pg Invalid Interpretation Code 27.0-34.0 [facility] [email or web address] MCHC mass conc (RBC) 31.6 g/dL Invalid Interpretation Code 31.0-36.0 [facility] [email or web address] MCV 87.5 fL Invalid Interpretation Code 80.-100. [facility] Monocytes/100 leukocytes 8.8 % Invalid Interpretation Code [facility] Neutrophils/100 leukocytes 49.5 % Invalid Interpretation Code [facility] WBC (Leukocytes) 5.2 10*3/uL Invalid Interpretation Code 3.7-10.8 [facility] [email or web address] Otheron 09-14-2017 Cholesterol crystals Infrared spectroscopy Ql (Stone) 220 mg/dL Invalid Interpretation Code <200 [facility] Cholesterol to HDL Ratio 2.9 {ratio} Invalid Interpretation Code <5 [facility] LDL to HDL Ratio 1.6 Invalid Interpretation Code <3.5 [facility] Lipoprotein.beta/Lipopro tein.alpha mass ratio 1.6 Invalid Interpretation Code <3.5 [facility] [email or web address] PreB-LP SerPl-mCnc 23.0 mg/dL Invalid Interpretation Code <30 [facility] PreB-LP SerPl-mCnc 120.0 mg/dL Invalid Interpretation Code <130 [facility] WBC LM Ql (Sput) 5.2 Invalid Interpretation Code 3.7-10.8 [facility] 298 Invalid Interpretation Code 150.-450. [facility] Thyroidon 09-14-2017 Thyroid stimulating hormone (TSH) 2.270 uIU/mL Invalid Interpretation Code 0.40-4.10 [facility] Thyroxine (T4) free 0.990 ng/dL Invalid Interpretation Code 0.80-1.90 [facility] Vital Signs Date Time Vital Sign Value Performing Clinician Ni barnard 01-31-2024 14:17-0400 Body mass index (BMI) [Ratio] 62.69 kg/m2 Erica Menonpatrick [employer] Work Phone: [facility] 01-31-2024 14:17-0400 Body temperature 97.2 [degF] Erica Menonpatrick [employer] Work Phone: [facility] 01-31-2024 14:17-0400 Body weight 145.6 kg Erica Menonpatrick [employer] Work Phone: [facility] 01-31-2024 14:17-0400 Diastolic blood pressure 80 mm[Hg] Erica Lillyzpatrick [employer] Work Phone: [facility] 01-31-2024 14:17-0400 Heart rate 57 /min Erica iLllyzpatrick [employer] Work Phone: [facility] 01-31-2024 14:17-0400 SaO2% (BldA) [Mass fraction] 94 % Erica Lillyzpatrick [employer] Work Phone: [facility] 01-31-2024 14:17-0400 Systolic blood pressure 152 mm[Hg] Erica Pompa [employer] Work Phone: [facility] 01-15-2024 14:38-0400 Diastolic blood pressure 74 mm[Hg] Hanane BARRERA Work Phone: [facility] 01-15-2024 14:38-0400 Heart rate 68 /min Hanane BARRERA Work Phone: [facility] 01-15-2024 14:38-0400 Systolic blood pressure 130 mm[Hg] Hanane BARRERA Work Phone: [facility] 01-15-2024 14:36-0400 Body mass index (BMI) [Ratio] 64.25 kg/m2 Hanane BARRERA Work Phone: [facility] 01-15-2024 14:36-0400 Body weight 149.23 kg Hanane BARRERA Work Phone: [facility] 01-15-2024 14:36-0400 SaO2% (BldA) [Mass fraction] 96 % Hanane BARRERA Work Phone: [facility] 11-29-2023 08:53-0400 Body height 152.4 cm Pfo 1 [facility] 11-29-2023 08:53-0400 Body mass index (BMI) [Ratio] 65.27 kg/m2 Pfo 1 [facility] 11-29-2023 08:53-0400 Body temperature 97.39 [degF] Pfo 1 [facility] 11-29-2023 08:53-0400 Body weight 151.59 kg Pfo 1 [facility] 11-29-2023 08:53-0400 Diastolic blood pressure 73 mm[Hg] Pfo 1 [facility] 11-29-2023 08:53-0400 Heart rate 73 /min Pfo 1 [facility] 11-29-2023 08:53-0400 Respiratory rate 21 /min Pfo 1 [facility] 11-29-2023 08:53-0400 SaO2% (BldA) [Mass fraction] 99 % Pfo 1 [facility] 11-29-2023 08:53-0400 Systolic blood pressure 142 mm[Hg] Pfo 1 [facility] 10-18-2023 21:58-0400 Heart rate 75 /min Isma Hayward MD Work Phone: [facility] 10-18-2023 21:58-0400 Respiratory rate 18 /min Isma Hayward MD Work Phone: [facility] 10-18-2023 21:48-0400 SaO2% (BldA) [Mass fraction] 94 % Isma Hayward MD Work Phone: [facility] 10-18-2023 19:27-0400 Body temperature 98.1 [degF] Isma Hayward MD Work Phone: [facility] 10-18-2023 19:27-0400 Diastolic blood pressure 77 mm[Hg] Isma Hayward MD Work Phone: [facility] 10-18-2023 19:27-0400 Systolic blood pressure 137 mm[Hg] Isma Hayward MD Work Phone: [facility] 10-18-2023 03:45-0400 Body mass index (BMI) [Ratio] 64.86 kg/m2 Isma Hayward MD Work Phone: [facility] 10-18-2023 03:45-0400 Body weight 150.64 kg Isma Hayward MD Work Phone: [facility] 10-16-2023 12:10-0400 Body height 152.4 cm Isma Hayward MD Work Phone: [facility] 02-13-2018 13:08-0400 BMI (Body Mass Index) 56.47 kg/m2 [facility] 02-13-2018 13:08-0400 Body Temperature 98 [degF] [facility] 02-13-2018 13:08-0400 BP Diastolic 80 mm[Hg] [facility] 02-13-2018 13:08-0400 BP Systolic 124 mm[Hg] [facility] 02-13-2018 13:08-0400 BSA (Body Surface Area) 2.39 m2 [facility] 02-13-2018 13:08-0400 Height 153.67 cm [facility] 02-13-2018 13:08-0400 Pulse (Heart Rate) 74 /min [facility] 02-13-2018 13:08-0400 Pulse Oximetry 97 % [facility] 02-13-2018 13:08-0400 Respiratory Rate 20 /min [facility] 02-13-2018 13:08-0400 Weight 133.36 kg [facility] 02-13-2018 10:08-0400 Body height 153.67 cm Leda Agrawal [facility] Work Phone: [facility] Work Phone: 02-13-2018 10:08-0400 Body mass index (BMI) [Ratio] 56.5 kg/m2 Leda Tanja [facility] Work Phone: [facility] Work Phone: 02-13-2018 10:08-0400 Body surface area Derived from formula 2.21 m2 Leda Tanja [facility] Work Phone: [facility] Work Phone: 02-13-2018 10:08-0400 Body temperature 98 [degF] Leda Agrawal CNP Work Phone: [facility] Work Phone: 02-13-2018 10:08-0400 Body weight 133.36 kg Leda Agrawal CNP Work Phone: [facility] Work Phone: 02-13-2018 10:08-0400 Diastolic blood pressure 80 mm[Hg] Leda Agrawal CNP Work Phone: [facility] Work Phone: 02-13-2018 10:08-0400 Heart rate 74 /min Leda Agrawal CNP Work Phone: [facility] Work Phone: 02-13-2018 10:08-0400 Respiratory rate 20 /min Leda Agrawal CNP Work Phone: [facility] Work Phone: 02-13-2018 10:08-0400 Systolic blood pressure 124 mm[Hg] Leda Agrawal CNP Work Phone: [facility] Work Phone: 01-25-2018 12:47-0400 BMI (Body Mass Index) 56.47 kg/m2 Leda Tanja [facility] 01-25-2018 12:47-0400 Body Temperature 98.4 [degF] Leda Agrawal [facility] 01-25-2018 12:47-0400 BP Diastolic 82 mm[Hg] Leda Agrawal [facility] 01-25-2018 12:47-0400 BP Systolic 122 mm[Hg] 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 [facility] 01-25-2018 12:47-0400 BSA (Body Surface Area) 2.39 m2 Leda Tanja [facility] 01-25-2018 12:47-0400 Height 153.67 cm Leda Tanja [facility] 01-25-2018 12:47-0400 Pulse (Heart Rate) 73 /min Leda Agrawal [facility] 01-25-2018 12:47-0400 Pulse Oximetry 96 % 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 [facility] 01-25-2018 12:47-0400 Respiratory Rate 18 /min Leda Agrawal [facility] 01-25-2018 12:47-0400 Weight 133.36 kg 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 [facility] 01-25-2018 09:47-0400 Body height 153.67 cm Leda Agrawal CNP Work Phone: [facility] Work Phone: 01-25-2018 09:47-0400 Body mass index (BMI) [Ratio] 56.5 kg/m2 Leda Agrawal CNP Work Phone: [facility] Work Phone: 01-25-2018 09:47-0400 Body surface area Derived from formula 2.21 m2 Leda Agrawal CNP Work Phone: [facility] Work Phone: 01-25-2018 09:47-0400 Body temperature 98.4 [degF] Leda Agrawal CNP Work Phone: [facility] Work Phone: 01-25-2018 09:47-0400 Body weight 133.36 kg Leda Agrawal CNP Work Phone: [facility] Work Phone: 01-25-2018 09:47-0400 Diastolic blood pressure 82 mm[Hg] Leda Agrawal CNP Work Phone: [facility] Work Phone: 01-25-2018 09:47-0400 Heart rate 73 /min Leda Agrawal CNP Work Phone: [facility] Work Phone: 01-25-2018 09:47-0400 Respiratory rate 18 /min Leda Agrawal [employer] Work Phone: [facility] Work Phone: 01-25-2018 09:47-0400 Systolic blood pressure 122 mm[Hg] Leda Agrawla [employer] Work Phone: [facility] Work Phone: 11-14-2017 18:20-0400 BMI (Body Mass Index) 56.47 kg/m2 [facility] 11-14-2017 18:20-0400 Body Temperature 97.4 [degF] [facility] 11-14-2017 18:20-0400 BP Diastolic 80 mm[Hg] [facility] 11-14-2017 18:20-0400 BP Systolic 130 mm[Hg] [facility] 11-14-2017 18:20-0400 BSA (Body Surface Area) 2.39 m2 [facility] 11-14-2017 18:20-0400 Height 153.67 cm [facility] 11-14-2017 18:20-0400 Pulse (Heart Rate) 96 /min [facility] 11-14-2017 18:20-0400 Pulse Oximetry 95 % [facility] 11-14-2017 18:20-0400 Respiratory Rate 18 /min [facility] 11-14-2017 18:20-0400 Weight 133.36 kg [facility] 11-14-2017 15:20-0400 Body height 153.67 cm Leda Agrawal CNP Work Phone: [facility] Work Phone: 11-14-2017 15:20-0400 Body mass index (BMI) [Ratio] 56.5 kg/m2 Leda Agrawal CNP Work Phone: [facility] Work Phone: 11-14-2017 15:20-0400 Body surface area Derived from formula 2.21 m2 Leda Agrawal CNP Work Phone: [facility] Work Phone: 11-14-2017 15:20-0400 Body temperature 97.4 [degF] Leda Agrawal CNP Work Phone: [facility] Work Phone: 11-14-2017 15:20-0400 Body weight 133.36 kg Leda Agrawal CNP Work Phone: [facility] Work Phone: 11-14-2017 15:20-0400 Diastolic blood pressure 80 mm[Hg] Leda Agrawal CNP Work Phone: [facility] Work Phone: 11-14-2017 15:20-0400 Heart rate 96 /min Leda Agrawal CNP Work Phone: [facility] Work Phone: 11-14-2017 15:20-0400 Respiratory rate 18 /min Leda Agrawal CNP Work Phone: [facility] Work Phone: 11-14-2017 15:20-0400 Systolic blood pressure 130 mm[Hg] Leda Agrawal CNP Work Phone: [facility] Work Phone: 10-12-2017 11:11-0400 BMI (Body Mass Index) 57.12 kg/m2 Leda Agrawal [facility] 10-12-2017 11:11-0400 Body Temperature 98.8 [degF] [facility] 10-12-2017 11:11-0400 BP Diastolic 83 mm[Hg] [facility] 10-12-2017 11:11-0400 BP Systolic 122 mm[Hg] [facility] 10-12-2017 11:11-0400 BSA (Body Surface Area) 2.4 m2 [facility] 10-12-2017 11:11-0400 Height 153.67 cm [facility] 10-12-2017 11:11-0400 Pulse (Heart Rate) 79 /min [facility] 10-12-2017 11:11-0400 Pulse Oximetry 99 % [facility] 10-12-2017 11:11-0400 Respiratory Rate 18 /min [facility] 10-12-2017 11:11-0400 Weight 134.89 kg [facility] 10-12-2017 10:11-0400 BMI (Body Mass Index) 57.12 kg/m2 [facility] 10-12-2017 10:11-0400 Body Temperature 98.8 [degF] [facility] 10-12-2017 10:11-0400 BP Diastolic 83 mm[Hg] [facility] 10-12-2017 10:11-0400 BP Systolic 122 mm[Hg] [facility] 10-12-2017 10:11-0400 BSA (Body Surface Area) 2.4 m2 Leda Agrawal [facility] 10-12-2017 10:11-0400 Height 153.67 cm Leda Tanja [facility] 10-12-2017 10:11-0400 Pulse (Heart Rate) 79 /min Leda Tanja [facility] 10-12-2017 10:11-0400 Pulse Oximetry 99 % Leda Tanja [facility] 10-12-2017 10:11-0400 Respiratory Rate 18 /min Leda Tanja [facility] 10-12-2017 10:11-0400 Weight 134.89 kg [facility] 10-12-2017 08:11-0400 Body height 153.67 cm Leda Agrawal CNP Work Phone: [facility] Work Phone: 10-12-2017 08:11-0400 Body mass index (BMI) [Ratio] 57 kg/m2 Leda Agrawal CNP Work Phone: [facility] Work Phone: 10-12-2017 08:11-0400 Body surface area Derived from formula 2.22 m2 Leda Agrawal CNP Work Phone: [facility] Work Phone: 10-12-2017 08:11-0400 Body temperature 98.8 [degF] Leda Agrawal CNP Work Phone: [facility] Work Phone: 10-12-2017 08:11-0400 Body weight 134.72 kg Leda Agrawal CNP Work Phone: [facility] Work Phone: 10-12-2017 08:11-0400 Diastolic blood pressure 83 mm[Hg] Leda Agrawal CNP Work Phone: [facility] Work Phone: 10-12-2017 08:11-0400 Heart rate 79 /min Leda Agrawal [employer] Work Phone: [facility] Work Phone: 10-12-2017 08:11-0400 Respiratory rate 18 /min Leda Agrawal CNP Work Phone: [facility] Work Phone: 10-12-2017 08:11-0400 Systolic blood pressure 122 mm[Hg] Leda Agrawal CNP Work Phone: [facility] Work Phone: 09-20-2017 17:04-0400 BP Diastolic 80 mm[Hg] [facility] 09-20-2017 17:04-0400 BP Systolic 136 mm[Hg] [facility] 09-20-2017 16:19-0400 BMI (Body Mass Index) 59.21 kg/m2 [facility] 09-20-2017 16:19-0400 Body Temperature 97.1 [degF] [facility] 09-20-2017 16:19-0400 BP Diastolic 80 mm[Hg] [facility] 09-20-2017 16:19-0400 BP Systolic 142 mm[Hg] [facility] 09-20-2017 16:19-0400 BSA (Body Surface Area) 2.44 m2 [facility] 09-20-2017 16:19-0400 Height 153.67 cm [facility] 09-20-2017 16:19-0400 Pulse (Heart Rate) 94 /min [facility] 09-20-2017 16:19-0400 Pulse Oximetry 96 % [facility] 09-20-2017 16:19-0400 Respiratory Rate 18 /min [facility] 09-20-2017 16:19-0400 Weight 139.82 kg [facility] 09-20-2017 16:04-0400 BP Diastolic 80 mm[Hg] [facility] 09-20-2017 16:04-0400 BP Systolic 136 mm[Hg] [facility] 09-20-2017 15:19-0400 BMI (Body Mass Index) 59.21 kg/m2 [facility] 09-20-2017 15:19-0400 Body Temperature 97.1 [degF] [facility] 09-20-2017 15:19-0400 BP Diastolic 80 mm[Hg] [facility] 09-20-2017 15:19-0400 BP Systolic 142 mm[Hg] [facility] 09-20-2017 15:19-0400 BSA (Body Surface Area) 2.44 m2 [facility] 09-20-2017 15:19-0400 Height 153.67 cm [facility] 09-20-2017 15:19-0400 Pulse (Heart Rate) 94 /min [facility] 09-20-2017 15:19-0400 Pulse Oximetry 96 % [facility] 09-20-2017 15:19-0400 Respiratory Rate 18 /min Leda Agrawal [facility] 09-20-2017 15:19-0400 Weight 139.82 kg Leda Agrawal [facility] 09-20-2017 14:04-0400 Diastolic blood pressure 80 mm[Hg] Leda Agrawal CNP Work Phone: [facility] Work Phone: 09-20-2017 14:04-0400 Systolic blood pressure 136 mm[Hg] Leda Agrawal CNP Work Phone: [facility] Work Phone: 09-20-2017 13:19-0400 Body height 153.67 cm Leda Agrawal CNP Work Phone: [facility] Work Phone: 09-20-2017 13:19-0400 Body mass index (BMI) [Ratio] 59.2 kg/m2 Leda Agrawal CNP Work Phone: [facility] Work Phone: 09-20-2017 13:19-0400 Body surface area Derived from formula 2.26 m2 Leda Agrawal CNP Work Phone: [facility] Work Phone: 09-20-2017 13:19-0400 Body temperature 97.1 [degF] Leda Agrawal CNP Work Phone: [facility] Work Phone: 09-20-2017 13:19-0400 Body weight 139.71 kg Leda Agrawal CNP Work Phone: [facility] Work Phone: 09-20-2017 13:19-0400 Diastolic blood pressure 80 mm[Hg] Leda Agrawal CNP Work Phone: [facility] Work Phone: 09-20-2017 13:19-0400 Heart rate 94 /min Leda Agrawal CNP Work Phone: [facility] Work Phone: 09-20-2017 13:19-0400 Respiratory rate 18 /min Leda Agrawal [employer] Work Phone: [facility] Work Phone: 09-20-2017 13:19-0400 Systolic blood pressure 142 mm[Hg] Leda Agrawal [employer] Work Phone: [facility] Work Phone: 09-14-2017 12:35-0400 BMI (Body Mass Index) 59.76 kg/m2 [facility] 09-14-2017 12:35-0400 Body Temperature 97 [degF] [facility] 09-14-2017 12:35-0400 BP Diastolic 72 mm[Hg] [facility] 09-14-2017 12:35-0400 BP Systolic 122 mm[Hg] [facility] 09-14-2017 12:35-0400 BSA (Body Surface Area) 2.45 m2 [facility] 09-14-2017 12:35-0400 Height 153.67 cm [facility] 09-14-2017 12:35-0400 Pulse (Heart Rate) 71 /min [facility] 09-14-2017 12:35-0400 Pulse Oximetry 97 % [facility] 09-14-2017 12:35-0400 Respiratory Rate 18 /min [facility] 09-14-2017 12:35-0400 Weight 141.13 kg [facility] 09-14-2017 11:35-0400 BMI (Body Mass Index) 59.76 kg/m2 [facility] 09-14-2017 11:35-0400 Body Temperature 97 [degF] [facility] 09-14-2017 11:35-0400 BP Diastolic 72 mm[Hg] [facility] 09-14-2017 11:35-0400 BP Systolic 122 mm[Hg] [facility] 09-14-2017 11:35-0400 BSA (Body Surface Area) 2.45 m2 [facility] 09-14-2017 11:35-0400 Height 153.67 cm [facility] 09-14-2017 11:35-0400 Pulse (Heart Rate) 71 /min [facility] 09-14-2017 11:35-0400 Pulse Oximetry 97 % [facility] 09-14-2017 11:35-0400 Respiratory Rate 18 /min [facility] 09-14-2017 11:35-0400 Weight 141.13 kg [facility] 09-14-2017 09:35-0400 Body height 153.67 cm Leda Tanja [facility] Work Phone: [facility] Work Phone: 09-14-2017 09:35-0400 Body mass index (BMI) [Ratio] 59.7 kg/m2 Leda Agrawal [facility] Work Phone: [facility] Work Phone: 09-14-2017 09:35-0400 Body surface area Derived from formula 2.27 m2 Leda Agrawal CNP Work Phone: [facility] Work Phone: 09-14-2017 09:35-0400 Body temperature 97 [degF] Leda Agrawal CNP Work Phone: [facility] Work Phone: 09-14-2017 09:35-0400 Body weight 141.07 kg Leda Agrawal CNP Work Phone: [facility] Work Phone: 09-14-2017 09:35-0400 Diastolic blood pressure 72 mm[Hg] Leda Agrawal CNP Work Phone: [facility] Work Phone: 09-14-2017 09:35-0400 Heart rate 71 /min Leda Agrawal CNP Work Phone: [employer] [facility] Work Phone: 09-14-2017 09:35-0400 Respiratory rate 18 /min Leda Agrawal CNP Work Phone: [facility] Work Phone: 09-14-2017 09:35-0400 Systolic blood pressure 122 mm[Hg] Leda Agrawal CNP Work Phone: [employer] [facility] Work Phone: Encounters Encounter Date Encounter Type Care Provider Facility Start: 12-06-2024 ambulatory [facility] Start: 12-06-2024 End: 12-06-[address] [facility] Start: 11-21-2024 End: 11-21-2024 ambulatory ELIZABETH [facility] Start: 11-07-2024 End: 11-07-2024 ambulatory ELIZABETH [facility] Start: 10-08-2024 End: 10-08-2024 ambulatory MEHRDAD [facility] Start: 05-23-2024 End: 05-23-2024 ambulatory ELIZABETH [facility] Start: 05-20-2024 End: 05-20-2024 ambulatory EHAB MANNY [facility] Start: 05-09-2024 End: 05-09-2024 ambulatory ELIZABETH Garcia [facility] Start: 03-19-2024 End: 03-19-2024 Telephone encounter Keenan Rodas CMA [facility] Start: 02-16-2024 End: 02-16-2024 Refill Jane Tinajero [employer] Work Phone: [facility] Start: 01-31-2024 End: 01-31-2024 Bamboo flowsheet Erica Siddiquitrick [employer] Work Phone: [facility] Start: 01-31-2024 End: 01-31-2024 Bamboo flowsheet Erica Siddiquitrick [employer] Work Phone: [facility] Start: 01-31-2024 End: 01-31-2024 Office outpatient visit 10 minutes Ercia Alexanderk [employer] Work Phone: [facility] Comment on above: Chronic obstructive pulmonary disease with acute exacerbation (CMS/HCC) (Primary Dx); Chronic rhinitis; Bipolar depression (CMS/HCC); ADORE (obstructive sleep apnea); Pulmonary emphysema, unspecified emphysema type (CMS/HCC) Start: 01-31-2024 End: 01-31-2024 Refill Jane Tinajero [employer] Work Phone: [facility] Start: 01-31-2024 End: 01-31-2024 ambulatory ERICA POMPA Not Available Start: 01-29-2024 End: 01-29-2024 Refill Erica Menonpatrick [employer] Work Phone: [facility] Comment on above: ARSH (generalized anx iety disorder) (CMS/HCC) Start: 01-29-2024 End: 01-29-2024 Refill Jane Bar Petecarlo [employer] Work Phone: [facility] Start: 01-22-2024 End: 01-22-2024 ambulatory [facility] Bright [facility] Start: 01-15-2024 End: 01-15-2024 Office outpatient visit 40 minutes Hanane Bright [facility] [employer] Work Phone: [facility] Comment on above: ERIN (acute kidney in jury) [place] (Primary Dx); 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 ([facility] ; Hypovitaminosis D; Hypomagnesemia; Primary hypertension; Nephrotic range proteinuria Start: 01-12-2024 End: 01-12-2024 ambulatory [facility] Start: 01-04-2024 End: 01-04-2024 Telephone encounter Scanning Provider External N [facility] Start: 01-02-2024 End: 01-02-2024 Orders Only Shazia La RN N [facility] Comment on above: 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 (Primary Dx) Start: 12-19-2023 End: 12-19-2023 [facility] Start: 11-29-2023 End: 11-29-2023 ambulatory SHAWN ZAMORA [facility] Comment on above: 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 (Primary Dx) Start: 11-14-2023 End: 11-14-2023 Orders Only Shazia La RN N [facility] Comment on above: 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 (Primary Dx) Start: 11-13-2023 End: 11-13-2023 Orders Only Shazia La RN [facility] Start: 11-07-2023 End: 11-07-2023 ambulatory [facility] Comment on above: 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 RANDLE [facility] Start: 10-14-2023 End: 10-19-2023 Emergency department patient visit ALEXIS Olguin LEXI [facility] Start: 10-14-2023 End: 10-18-2023 Evaluation and management of inpatient NOT IN SYSTEM [facility] Comment on above: ERIN (acute kidney in jury) ([facility]) (Primary Dx); Hypertensive urgency; Hypokalemia; Elevated brain natriuretic peptide (BNP) level Start: 04-26-2023 End: 04-26-2023 ambulatory SHAIKH JHONY Not Available Start: 04-15-2022 End: 04-17-2022 ambulatory QUYNH ARCHER Facility:[facility] Start: 02-08-2022 End: 02-09-2022 ambulatory NANCI BEEBE Facility:[facility] Start: 12-30-2021 End: 12-31-[address] VU RIVERA Facility:[facility] Start: 01-20-2020 End: 01-23-2020 [facility] Start: 01-20-2020 End: 01-22-2020 Subsequent hospital visit by physician Roman Palacio Dr Room 4 [facility] Comment on above: Chronic bilateral lo w back pain without sciatica Chronic neck pain; Chronic bilateral low back pain without sciatica Start: 07-31-2018 Patient encounter procedure Heath Kirkpatrick Facility:[id number] Start: 07-20-2018 End: 07-20-2018 [facility] Leda Agrawal CNP Work Phone: [facility] Work Phone: Start: 02-13-2018 End: 02-13-2018 Patient encounter procedure Leda Agrawal [employer] Work Phone: [facility] Work Phone: Start: 02-13-2018 Office outpatient vi sit 15 minutes Leda Agrawal Other [facility] Start: 01-25-2018 End: 01-25-2018 Patient encounter procedure Leda Agrawal [employer] Work Phone: [facility] Work Phone: Start: 01-25-2018 Office outpatient vi sit 15 minutes Leda Agrawal Other [facility] Start: 11-14-2017 Office outpatient vi sit 15 minutes Leda Tanja Other [facility] Start: 11-14-2017 End: 11-14-2017 Patient encounter procedure Leda Agrawal [employer] Work Phone: [facility] Work Phone: Start: 10-12-2017 End: 10-12-2017 Patient encounter procedure Leda Agrawal [employer] Work Phone: [facility] Work Phone: Start: 10-12-2017 End: 10-12-2017 Office outpatient visit 15 minutes Leda Agrawal Other [facility] Start: 10-12-2017 Polysom 6/>yrs sleep 4/> addl nicky attnd [facility] Start: 10-12-2017 Polysom 6/>yrs sleep w/cpap 4/> addl nicky attnd [facility] Start: 09-20-2017 End: 09-20-2017 Office outpatient visit 15 minutes Leda Tanja Other [facility] Start: 09-20-2017 End: 09-20-2017 Patient encounter procedure Leda Tanja SHOT POLISHER Work Phone: [facility] Work Phone: Start: 09-14-2017 End: 09-14-2017 Patient encounter procedure Leda Agrawal SHOT POL[employer]ER Work Phone: [facility] Work Phone: Start: 09-14-2017 Laboratory examinati on, unspecified Leda Agrawal [facility] Start: 09-14-2017 Colonoscopy w/biopsy single/multiple Leda Agrawal [facility] Start: 09-14-2017 Dxa bone density kourtney dy 1/> sites axial skel Leda Agrawal [facility] Start: 09-14-2017 End: 09-14-2017 Office outpatient new 45 minutes Leda Agrawal Other [facility] Procedures Date Procedure Procedure Detail Performing Clinician Start: 10-19-2023 Adult depression scr eening assessment Shazia La RN Start: 10-18-2023 POCT IONIZED CALCIUM Mu milagro Jewell MD Work Phone: Start: 10-18-2023 Comprehensive metabo lic panel Kristina Robles [employer]NETIST[employer]ISH[employer] Work Phone: Start: 10-17-2023 Potassium serum plas ma/whole blood Elva Man MD Work Phone: Start: 10-17-2023 Blood occult peroxid ase actv qual feces 1-3 spec Nataliia Vicki [employer] Work Phone: Start: 10-17-2023 Pulmonary ventilatio n & perfusion imaging Nataliia Cohen [employer] Work Phone: Start: 10-17-2023 End: 10-17-2023 Comprehensive metabolic panel Kristina Robles [employer] Work Phone: Start: 10-16-2023 Fibrin dgradj produc ts d-dimer quantitative Elva Man MD Work Phone: Start: 10-16-2023 Dup-scan xtr veins c omplete bilateral study Fran Wild MD Work Phone: Start: 10-16-2023 Protein total xcpt refractometry urine Irving Flores MD Work Phone: Start: 10-16-2023 Volume measurement t imed collection each Irving Flores MD Work Phone: Start: 10-16-2023 Creatinine other source Irving Flores MD Work Phone: Start: 10-16-2023 Urine albumin quantitative Irving Flores MD Work Phone: Start: 10-16-2023 Urnls dip stick/tabl et rgnt auto w/o microscopy Irving Flores MD Work Phone: Start: 10-16-2023 Echo tthrc r-t 2d w/ wom-mode compl spec&colr d Antione Betty Santa [employer] Work Phone: Start: 10-16-2023 End: 10-16-2023 Potassium serum plasma/whole blood Dre Jewell MD Work Phone: Start: 10-16-2023 Us retroperitoneal r eal time w/image complete Fran Wild MD Work Phone: Start: 10-16-2023 End: 10-16-2023 Comprehensive metabolic panel Kristina Robles [employer] Work Phone: Start: 10-16-2023 CLINICAL PATHOLOGY Alhaji Flores MD Work Phone: Start: 10-15-2023 Assay of urine sodium R luna Wild MD Work Phone: Start: 10-15-2023 Urnls dip stick/tabl et rgnt auto w/o microscopy Fran Wild MD Work Phone: Start: 10-15-2023 Antinuclear antibodies saul Fran Wild MD Work Phone: Start: 10-15-2023 Creatine kinase total M uhamid M Best STEINBERG Work Phone: Start: 10-15-2023 FREE LIGHT CHAINS Fran Wild MD Work Phone: Start: 10-15-2023 Iaad ia hepatitis b surface antigen Fran Wild MD Work Phone: Start: 10-15-2023 BIPAP/CPAP/AUTOPAP Antione Santa [employer] Work Phone: Start: 10-15-2023 Comprehensive metabo lic panel Kristina Robles [employer]IST[employer] Work Phone: Start: 10-14-2023 Radiologic exam ches t single view Khalid Lexi DO Work Phone: Start: 10-14-2023 Assay of troponin quantitative Khalid Lexi DO Work Phone: Start: 10-14-2023 Ecg routine ecg w/le ast 12 lds trcg only w/o i&r Khalid Lexi DO Work Phone: Start: 10-14-2023 Basic metabolic pane l calcium total Khalid Lexi DO Work Phone: Start: 01-20-2020 Radex spine lumbosac ral 2/3 views KEMPSAGER RAVISHANKAR Start: 01-20-2020 Radex spine cervical 2 or 3 views KEMPSAGER RAVISHANKAR Start: 01-20-2020 Radex spine lumbosac ral 2/3 views Kempsager Ravishankar Work Phone: Start: 01-20-2020 Radex spine cervical 2 or 3 views Kempsager Ravishankar Work Phone: Start: 10-14-2019 Colonoscopy Shazia Ramirez son RN Start: 02-25-2019 Mammography Erica F itzpatrick FERMENTER CHAMPAGNE Work Phone: Start: 08-10-2018 Follow-up visit Start: 01-25-2018 Assay of free thyroxine Leda Agrawal Start: 01-25-2018 Assay of thyroid sti mulating hormone tsh Leda Agrawal Start: 01-25-2018 Blood [...] Leda Agrawal Start: 09-20-2017 SBIRT Negative Leda castillophilomena Start: 09-14-2017 Assay of free thyroxine Leda Agrawal Start: 09-14-2017 Assay of thyroid sti mulating hormone tsh Leda Agrawal Start: 09-14-2017 Blood [...] Activity Detail Author Start: 10-13-2029 Screening for malignant neoplasm of colon [facility] Start: 01-14-2025 Adult BMI Screening Adult BMI Screening [facility] Start: 11-28-2024 Adult BMI Screening Adult BMI Screening [facility] Start: 11-28-2024 Tobacco Screening Tobacco Screening [facility] Start: 10-24-2024 Adult BMI Screening Adult BMI Screening [facility] Start: 10-18-2024 Depression Screening Depression Screening [facility] Start: 10-18-2024 Tobacco Screening Tobacco Screening [facility] Start: 10-13-2024 Screening for malignant neoplasm of colon Colonoscopy [facility] Start: 03-25-2024 End: 03-25-2024 Patient encounter procedure 03/25/2024 10:30 AM EST Office Visit [facility] [address] [place] [phone] Fran Wild MD [address] [place] [address] [facility] Start: 02-06-2024 End: 02-06-2024 Patient encounter procedure 02/06/2024 1:30 PM EDT Office Visit [facility] [address] [place] [phone] Erica Pompa, REINA [address] [place] [phone] [facility] Start: 01-31-2024 End: 01-31-2024 Patient encounter procedure 01/31/2024 2:00 PM EDT Office Visit [facility] [address] [place] [phone] Erica Pompa, REINA [address] [place] [phone] Arrived [facility] Comment on above: Arrived Start: 01-31-2024 End: 01-30-2025 XR Chest 2 Views XR chest 2 views Imaging Routine Chronic obstructive pulmonary disease with acute exacerbation ([facility]/HCC) Expected: 01/31/2024, Expires: 01/30/2025 [facility] Work Phone: Comment on above: Expected: 01/31/2024, Expires: Start: 01-22-2024 End: 01-14-2025 Basic metabolic 2000 panel - Serum or Plasma Basic Metabolic Panel Lab Routine 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 (CMS-HCC) Expected: 01/22/2024 (Approximate), Expires: 01/14/2025 [facility] Work Phone: Comment on above: Expected: 01/22/2024 (Approximate), Expi res: 01/14/2025 Start: 12-24-2023 Influenza vaccination [facility] Start: 12-06-2023 End: 12-06-2023 ambulatory 12/06/2023 10:00 AM EDT Infusion [facility] [address] [place] [address] [facility] Start: 01-30-2021 COVID-19 Vaccine (2 - Roxanne risk series) COVID-19 Vaccine (2 - Roxanne risk series) [facility] Start: 04-30-2020 End: 04-30-2020 Office Visit 04/30/2020 Office Visit Neurology Tim Sharma MD [address] [place] [address] [place] [address] [facility] Start: 02-26-2020 Screening for malignant neoplasm of breast Mammogram [facility] Start: 12-24-2019 Influenza vaccination Flu vaccine (#1) [place] Start: 08-31-2019 Screening for malignant neoplasm of lung Low dose CT lung screening [place], [place] Start: 02-13-2019 Creatinine measurement Creatinine monitoring [place], [place] Start: 11-30-2018 Potassium monitoring Potassium monitoring [place] Start: 11-08-2018 Lipid panel Lipid screen [place] Start: 08-02-2018 [facility] visit, estab pt Established Patient [facility] Work Phone: Start: 10-12-2017 Polysom 6/>yrs sleep 4/> addl nicky attnd Polysomnography with CPAP testing [facility] Start: 10-12-2017 Polysom 6/>yrs sleep w/cpap 4/> addl nicky attnd Polysomnography with CPAP testing [facility] Start: 09-14-2017 Dual energy X-ray photon absorptiometry DEXA scan for body composition study [facility] Start: 08-22-2016 Screening for malignant neoplasm of breast Breast cancer screen [place], [place] Start: 01-24-2016 Screening for malignant neoplasm of cervix Cervical cancer screen [place], [place] Start: 2014 Screening for malignant neoplasm of colon Colon cancer screen colonoscopy [place], [place] Start: 2014 Shingles Vaccine (1 of 2) Shingles Vaccine (1 of 2) [place] Start: 1994 Screening for malignant neoplasm of cervix [facility] Start: 1985 Screening for malignant neoplasm of cervix Pap Smear [facility] Start: 08-31-1983 Administration of varicella zoster vaccine Zoster (Shingles) Vaccine (1 of 2) [facility] Start: 08-31-1983 DTaP,Tdap and Td Vaccines (1 - Tdap) DTaP,Tdap and Td Vaccines (1 - Tdap) [facility] Start: 08-31-1983 DTaP/Tdap/Td vaccine (1 - Tdap) DTaP/Tdap/Td vaccine (1 - Tdap) [place] Start: 1982 Adult BMI Follow Up Plan Adult BMI Follow Up Plan [facility] Start: 08-31-1979 HIV screening HIV screen [place], [place] Start: 1970 Pneumococcal 0-64 years Vaccine (1 of 1 - PPSV23) Pneumococcal 0-64 years Vaccine (1 of 1 - PPSV23) [place] Start: 1964 Hepatitis C screening Hepatitis C screen [place], [place] Start: 1964 Screening for malignant neoplasm of colon [facility] Start: 1964 Tobacco Counseling Tobacco Counseling [employer] Basement membrane Ig G Ab [Units/volume] in Serum Glomerular Basement Membrane IgG, Serum Lab Routine 10/18/2023 11:37 AM EDT [employer] Basic metabolic 2000 panel - Serum or Plasma Basic Metabolic Panel Lab Routine Lab max of 3 days, Daily, for lab use only until discontinued starting 10/16/2023 [employer] Comment on above: Lab max of 3 days, Daily, for lab use on ly until discontinued starting 10/16/2023 End: 01-01-2025 Basic metabolic 2000 panel - Serum or Plasma Basic Metabolic Panel Lab Routine 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 1 Occurrences starting 01/02/2024 until 01/01/2025 [facility] Comment on above: 1 Occurrences starting 01/02/2024 until 01/01/2025 BiPAP/CPAP/AutoPAP BiPAP/CPAP/Au toPAP Respiratory Care Routine Every 12 hour check until discontinued starting 10/15/2023, 1 completed [employer] Work Phone: Comment on above: Every 12 hour check until discontinued s tarting 10/15/2023, 1 completed CBC panel - Blood by Automated count CBC without diff Lab Routine Lab max of 3 days, Daily, for lab use only until discontinued starting 10/16/2023 [employer] 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 1 Occurrences starting 01/02/2024 until 01/01/2025 [employer] Comment on above: 1 Occurrences starting 01/02/2024 until 01/01/2025 CBC W Auto Different ial panel - Blood CBC auto differential Lab Routine Lab max of 3 days, Daily, for lab use only until discontinued starting 10/15/2023, 4 completed [employer] Comment on above: Lab max of 3 days, Daily, for lab use on ly until discontinued starting 10/15/2023, 4 completed Comprehensive metabo lic 2000 panel - Serum or Plasma Comprehensive metabolic panel Lab Routine Lab max of 3 days, Daily, for lab use only until discontinued starting 10/15/2023, 4 completed [employer] Comment on above: Lab max of 3 days, Daily, for lab use on ly until discontinued starting 10/15/2023, 4 completed End: 10-15-2023 Cryoglobulin W/ Identification [employer] Comment on above: Once for 1 Occurrences starting 10/15/19 until 10/15/2023 End: 10-18-2023 Glomerular Basement Membrane IgG, Serum Glomerular Basement Membrane IgG, Serum Lab Routine Once for 1 Occurrences starting 10/18/2023 until 10/18/2023 [employer] Phone: Comment on above: Once for 1 Occurrences starting 10/18/19 until 10/18/2023 Ionized calcium Ionized calcium Lab Routine Lab max of 3 days, Daily, for lab use only until discontinued starting 10/16/2023 [employer] Comment on above: Lab max of 3 days, Daily, for lab use on ly until discontinued starting 10/16/2023 Magnesium [Mass/volu me] in Serum or Plasma Magnesium Lab Routine Lab max of 3 days, Daily, for lab use only until discontinued starting 10/15/2023, 4 completed [employer] Comment on above: Lab max of 3 days, Daily, for lab use on ly until discontinued starting 10/15/2023, 4 completed End: 01-01-2025 Magnesium [Mass/volume] in Serum or Plasma Magnesium Lab Routine 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 1 Occurrences starting 01/02/2024 until 01/01/2025 [employer] Comment on above: 1 Occurrences starting 01/02/2024 until 01/01/2025 End: 10-18-2023 Myeloperoxidase Antibodies, IgG, Serum Myeloperoxidase Antibodies, IgG, Serum Lab Routine Once for 1 Occurrences starting 10/18/2023 until 10/18/2023 [employer] Comment on above: Once for 1 Occurrences starting 10/18/19 until 10/18/2023 Myeloperoxidase IgG Ab [Units/volume] in Serum Myeloperoxidase Antibodies, IgG, Serum Lab Routine 10/18/2023 11:37 AM EDT [employer] Oxygen Therapy - Maintain SpO2: 90%; *DEVULCANIZER TENDER Guidelines for O2: Yes; Document: \[email or web address]\epi c\EPIC_Reference\Orders\ Respiratory Care Guidelines\CPG Oxygen 2022.pdf Oxygen Therapy - Maintain SpO2: 90%; *DEVULCANIZER TENDER Guidelines for O2: Yes; Document: \[email or web address]\epic\ EPIC_Reference\Orders\Resp iratory Care Guidelines\CPG Oxygen 2022.pdf Respiratory Care Routine As Needed until discontinued starting 10/15/2023 [employer] 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 1 Occurrences starting 01/02/2024 until 01/01/2025 [employer] Comment on above: 1 Occurrences starting 01/02/2024 until 01/01/2025 Phosphate [Mass/volu me] in Serum or Plasma Phosphorus Lab Routine Lab max of 3 days, Daily, for lab use only until discontinued starting 10/16/2023, 3 completed [employer] Comment on above: Lab max of 3 days, Daily, for lab use on ly until discontinued starting 10/16/2023, 3 completed End: 01-01-2025 Phosphate [Mass/volume] in Serum or Plasma Phosphorus Lab Routine 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 1 Occurrences starting 01/02/2024 until 01/01/2025 [employer] Comment on above: 1 Occurrences starting 01/02/2024 until 01/01/2025 End: 01-01-2025 Protein creat ratio Protein creat ratio Lab Routine 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 1 Occurrences starting 01/02/2024 until 01/01/2025 [employer] Comment on above: 1 Occurrences starting 01/02/2024 until 01/01/2025 Protein electrophore sis, urine Protein electrophoresis, urine Lab Routine 10/16/2023 10:37 AM EDT [employer] End: 01-01-2025 Urinalysis Urinalysis Lab Routine 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 1 Occurrences starting 01/02/2024 until 01/01/2025 [employer] Comment on above: 1 Occurrences starting 01/02/2024 until 01/01/2025 End: 01-01-2025 Vitamin D 25 hydroxy Vitamin D 25 hydroxy Lab Routine 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 2022 Private Health Insurance [facility] [id number] 2022-Present [phone] [address] [place] [address] [id number] 2022 Medicaid [id number] 2017 Medicaid [id number] 1959 Private Health Insurance [id number] [id number] 1964 Unknown [id number] 2.16.840.1.546092.3.579. 2.356 1964 Unknown [id number] 2.16.840.1.189832.3.579. 2.173 1964 Unknown [id number] 2.16.840.1.107451.3.579. 2.173 1964 Unknown [id number] 2.16.840.1.947424.3.579. 2.173 1964 Unknown [id number] 2.16.840.1.386432.3.579. 2.593 1964 Unknown [id number] 2.16.840.1.706990.3.579. 2.593 1964 Unknown [id number] 2.16.840.1.632172.3.579. 2.593 1964 Unknown [id number] 2.16.840.1.389571.3.579. 2.1285 1964 Unknown [id number] 2.16.840.1.319551.3.579. 2.1286 1964 Unknown [id number] 2.16.840.1.096473.3.579. 2.1285 1964 Unknown [id number] 2.16.840.1.974453.3.579. 2.1286 1964 Unknown [id number] 2.16.840.1.145679.3.579. 2.1285 1964 Unknown [id number] 2.16.840.1.203602.3.579. 2.1286 1964 Unknown [id number] 2.16.840.1.020670.3.579. 2.1285 1964 Unknown [id number] 2.16.840.1.425728.3.579. 2.1286 1964 Unknown [id number] 2.16.840.1.462975.3.579. 2.128 1964 Unknown [id number] 2.16.840.1.691654.3.579. 2.1286 1964 Unknown [id number] 2.16.840.1.118931.3.579. 2.1259 1964 Unknown [id number] 2.16.840.1.636706.3.579. 2.1259 1964 Unknown [id number] 2.16.840.1.721746.3.579. 2.1259 Social History Date Type Detail Facility Start: Current every day smoker [facility] Start: 01-20-2020 End: 12-25-2020 Current every day smoker [facility] End: 12-17-2012 History of tobacco use Cigarette Smoker [place] Start: 01-20-2020 End: 06-04-2020 Cigarettes smoked current (pack per day) - Reported [place] Start: 01-20-2020 End: 12-25-2020 Tobacco use and exposure Never used [place] Start: 01-20-2020 Alcohol intake Current non-dr anesthesia resident of alcohol (finding) [place] Start: 1965 Sex Assigned At Not on file [place] Exposure to SARS-CoV -2 (event) Not sure [place] Tobacco smoking status Unknown if ever sm oked [facility] Work Phone: History of tobacco use Passive smoker [facility] Start: 11-02-2023 Alcoholic beverage intake Lifetime non-drinker (finding) [facility] Start: 06-04-2020 End: 11-02-2023 Tobacco use panel [facility] Start: 10-15-2023 End: 01-15-2024 Alcoholic beverage intake Ex-drinker (finding) [facility] Has the [employer], [employer], or water [employer] threatened to shut off services in your home in past 12Mo No [facility] How often to you hav e a drink containing alcohol? Never [facility] Average Number of Drinks Not on file [facility] How often to you hav e a drink containing alcohol? Monthly or less [facility] How many standard drinks containing alcohol do you have on a typical day? 1 or 2 [facility] Start: 11-27-2014 Sex Female (finding) [facility] Goals Date Patient Goal Desired Activity /State Personal health goal Comment on above: Formatting of this n ote might be different from the original. Evaluation of progress towards goal: patient currently does not have a PCP. Will obtain a PCP for her. Personal health goal Comment on above: Formatting of this n ote might be different from the original. Evaluation of progress towards goal: Patient plans to discharge home with self care and with assistance from family. Clinical Notes 02-09-2022 to 12-06-2024 Telephone Encounter - Keenan Rodas CMA - 03/19/2024 9:40 AM ESTTelephone Encounter - Keenan Rodas CMA - 03/19/2024 9:40 AM Tammy Pompa NP - 01/31/2024 4:06 PM EDTPatient Instructions Note Date & Type Note Facility 12-06-2024 Note Patient: Danielle mcclendon Pre-sedation Evaluation: Moderate sedation History of Present Illness: Danielle Montana is a 59 y.o. female With morbid obesity, Hypertension, HFpEF, COPD. Seen in cardiology clinic with worsening exertional shortness of breath. Lexiscan test done showed anterior, septal and lateral ischemia. Echocardiogram done showed 60-65% in September 2023 Medical History[1] Principle problems: Patient Active Problem List Diagnosis Date Noted Anxiety 11/06/2023 Cancer ([facility]) 11/06/2023 Cervical cancer ([facility]) 11/06/2023 Morbid obesity ([facility]) 11/06/2023 Cluster headache 11/06/2023 Degenerative arthritis 11/06/2023 Dry mouth 11/06/2023 Heartburn 11/06/2023 Joint pain 11/06/2023 Mouth sores 11/06/2023 MRSA (methicillin resistant Staphylococcus aureus) 11/06/2023 Nausea 11/06/2023 Osteoporosis 11/06/2023 Back pain 11/06/2023 Other chest pain 11/06/2023 SOB (shortness of breath) 11/06/2023 Stiff muscles 11/06/2023 Swollen ankles 11/06/2023 Weakness 11/06/2023 Emphysema of lung ([facility]) 11/02/2023 Class 3 severe obesity due to excess calories without serious comorbidity in adult 11/02/2023 Depression 11/02/2023 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 10/31/2023 Microscopic polyangiitis ([facility]) 10/27/2023 B12 deficiency 10/17/2023 Iron deficiency anemia secondary to inadequate dietary iron intake 10/17/2023 Abnormal fasting glucose 10/16/2023 LUTHER (iron deficiency anemia) 10/16/2023 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, psychotic disturbance, mood disturbance, or anxiety ([facility]) 10/16/2023 Right knee pain 10/16/2023 Tear of articular cartilage of right knee, current, initial encounter 10/16/2023 ERIN (acute kidney injury) 10/15/2023 Edema of both lower extremities 10/15/2023 Mixed hyperlipidemia 10/15/2023 Hypokalemia 10/15/2023 Bipolar depression ([facility]) 04/26/2023 Chronic rhinitis 04/26/2023 Hyperlipidemia 04/26/2023 Non-recurrent acute suppurative otitis media of both ears without spontaneous rupture of tympanic membranes 04/26/2023 Hyperglycemia, drug-induced 12/26/2020 ADORE (obstructive sleep apnea) 12/26/2020 COPD with acute exacerbation ([facility]) 12/25/2020 Urinary tract infection 02/03/2019 Acute respiratory failure with hypoxia and hypercarbia ([facility]) 01/22/2019 Memory change 02/13/2018 Pneumonia of both lungs due to infectious organism 07/14/2017 Peripheral visual field defect, bilateral 05/31/2017 Visual hallucination 05/31/2017 ARSH (generalized anxiety disorder) 04/13/2017 Open angle with borderline findings and high glaucoma risk in both eyes 01/25/2017 Astigmatism, regular 12/15/2016 Hyperopia 12/15/2016 Presbyopia 12/15/2016 PAD (peripheral artery disease) 12/07/2016 Chest pain on exertion 11/11/2016 Chronic obstructive pulmonary disease ([facility]/HCC) 06/07/2016 DNS (deviated nasal septum) 06/07/2016 Dysphonia 06/07/2016 Henry's edema of vocal folds 06/07/2016 Smoking 06/07/2016 Tinnitus of right ear 06/07/2016 Tongue lesion 06/03/2016 Cellulitis of left hand 11/15/2015 Essential hypertension 04/20/2015 Morbid (severe) obesity due to excess calories ([facility]/HCC) 11/08/2013 Dysthymic disorder 11/08/2013 Fibromyalgia, primary 11/08/2013 Gastroesophageal reflux disease 01/19/2012 Abnormal cardiovascular stress test 11/19/2024 Abnormal findings on diagnostic imaging of heart and coronary circulation 11/19/2024 Allergies: Allergies[2] 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 Recent sedation/surgery (24 hours) No Review of Systems: Please check all that apply: ADORE and Cardiac Disease test completed prior to procedure on any menstruating female: none NPO guidelines met: Yes Physical Exam Airway Mallampati: IV Cardiovascular Rhythm: regular Rate: normal (+) peripheral edema (-) murmur Dental Pulmonary (-) rhonchi, decreased breath sounds, wheezes Plan ASA 3 Moderate Consent for blood products obtained. Risks, benefits, and alternatives to procedure discussed with patient in detail who expressed understanding and agreed to proceed. Abram Man PGY-4 [employer] [facility] [1] Past Medical History: Diagnosis Date Abnormal ECG Cancer ([facility]/HCC) CHF (congestive heart failure) ([facility]/HCC) COPD (chronic obstructive pulmonary disease) ([facility]/HCC) Hypertension RLS (restless legs syndrome) Sleep apnea [2] Allergies Allergen Reactions Pregabalin Other and Unknown Mental changes Codeine GI intolerance and Nausea And Vomiting Other reaction(s): Nausea And Vomiting Sulfamethoxazole-Trimethoprim Hives [3] Medications Laurita (more content not included)... [facility] 12-06-2024 Note No associated orders from this encounter found during lookback period of 72 hours. [facility] 10-08-2024 Note [facility] Cardiology Clinic Note Chief Complaint: Patient here for a 4 month follow up. Patient states she is tired all the time. Patient states she has chest pain that comes and goes and wakes up at night with her heart feeling like its beating out of her chest. Patient complains of ALMAZAN, SOB, leg swelling, and chronic fatigue. HPI: Danielle Montana is a 59 y.o. female With morbid obesity, Hypertension, HFpEF, COPD She is complaining of worsening exertional shortness of breath. She also has nocturnal palpitations and dyspnea. She has exertional chest pressure that [...] She has never used smokeless tobacco. She reports that she does not drink alcohol and does not use drugs. Family History Family History Problem Relation Name Age of Onset Coronary artery disease Father Allergies Pregabalin, Codeine, and Sulfamethoxazole-trimethoprim Medications Current Outpatient Medications: amLODIPine (Norvasc) 10 mg tablet, Take 1 tablet (10 mg) by mouth in the morning., Disp: 90 tablet, Rfl: 3 blood pressure monitor kit, Use blood [...] with breakfast and with evening meal., Disp: , Rfl: cetirizine (ZyrTEC) 10 mg tablet, Take 10 mg by mouth in the morning., Disp: , Rfl: cholecalciferol (Vitamin D-3) 50 MCG (2000 UT) tablet, Take by mouth in the morning., Disp: , Rfl: dapagliflozin propanediol (Farxiga) 10 mg, Take 1 tablet (10 mg) by mouth in the morning., Disp: 90 tablet, Rfl: 3 donepezil (Aricept) 10 mg tablet, [...] Pulse 66 Ht 1.524 m (5') Wt (!) 144 kg (318 lb) SpO2 96% BMI 62.11 kg/m??? Physical Examination: GENERAL: alert and oriented x3, [...] injury Palpitations Plan: Continue Bumex 1 mg (more content not included)... [facility] 05-20-2024 Note [facility] Cardiology Clinic Note Chief Complaint: Patient here for follow up [facility] for acute CHF. She was discharged from [facility] on losartan and amlodipine but she says she was never provided with RX's for these. She used to see [facility] cardiology back in 2020 for chest pain and hypertension. Patient denies chest pain, SOB, palpitations, and lightheadedness/syncope. HPI: Danielle Montana is a 58 y.o. female Cardiology ROS: Review of Systems Musculoskeletal: Positive for arthritis, back pain and joint pain. Neurological: Positive for headaches. All other systems reviewed and are negative. Past Medical History She has no past medical history on file. Surgical History She has a past surgical history that includes CT guided percutaneous biopsy renal right (Right, 10/20/2023). Social History She reports that she has been smoking cigarettes. She has never used smokeless tobacco. She reports that she does not drink alcohol and does not use drugs. Family History No family history on file. Allergies Pregabalin, Codeine, and Sulfamethoxazole-trimethoprim Medications Current Outpatient Medications: atovaquone (Mepron) 750 mg/5 mL suspension, Take 1,500 mg by mouth in the morning., Disp: , Rfl: busPIRone (Buspar) 15 mg tablet, Take 15 mg by mouth every 12 (twelve) hours., Disp: , Rfl: carvedilol (Coreg) 25 mg tablet, Take 25 mg by mouth., Disp: , Rfl: cetirizine (ZyrTEC) 10 mg tablet, Take 10 mg by mouth in the morning., Disp: , Rfl: cholecalciferol (Vitamin D-3) 50 MCG (2000 UT) tablet, Take by mouth in the morning., Disp: , Rfl: donepezil (Aricept) 10 mg tablet, Take 10 mg by mouth., Disp: , Rfl: DULoxetine [...] Disp: , Rfl: Last Recorded Vitals BP (!) 181/99 (BP Location: Right wrist, Patient Position: Sitting) Pulse 73 Ht 1.524 m (5') Wt (!) 142 kg (312 lb) SpO2 96% BMI 60.93 kg/m??? Physical Examination: GENERAL: alert and oriented x3, [...] abuse First-degree heart block Acute kidney injury Plan: Continue Bumex 1 mg daily for now; will check a CMP Resume losartan 25 mg daily, and Norvasc 10 mg daily. Continue Coreg 25 mg p.o. twice daily. She is to monitor her blood pressure at home a.m. and p.m. an hour after medications and to keep a log. Once her blood pressure stabilizes, and we can assure absence of worsening kidney function, we will consider an ischemic workup. Her weight will be a challenge. Given heart failure with preserved ejection fraction, [...] advise her to consider weight loss surgery. Treat noncardiac comorbidities as clinically appropriate. Return to clinic in 3-4 months or sooner should problems arise Mehrdad Mccormick MD, MPH, FACC, [facility], [facility] Interventional Cardiology Pager Email: [email or web address] Addendum: The patient is in need of a blood pressure cuff to measure her blood pressure at home and to keep an accurate log. Mehrdad Mccormick MD, MPH, FACC, F (more content not included)... [facility] 03-19-2024 Miscellaneous Notes Called patient and left a voicemail to confirm their upcoming appt on 03/25/24 in [place] with Fran Wild MD. The patient was instructed to call our office back to further confirm: [phone] documented [facility] encounter [facility]24 Telephone encounter Note Called patient and left a voicemail to confirm their upcoming appt on 03/25/24 in [place] with Fran Wild MD. The patient was instructed to call our office back to further confirm: [phone] [facility] 01-31-[facility]24 History of Present illness Narrative Associated Problem(s): Chronic obstructive pulmonary disease (CMS/HCC) Poorly controlled COPD. Currently taking Trelegy daily. Presents today with COPD exacerbation, productive cough, wheezing, shortness of breath X7 days. SPO2 97% on RA. Rhonchi and wheezing noted throughout. Pt is currently taking Prednisone 60mg daily. Ordered CXR and Prescribed Levaquin X7 days, Duonebs Q6H PRN, Albuterol inhaler to be used after acute exacerbation PRN. Advised pt to have CXR completed YVAN. Phoned [facility] radiology to call with results. Advised pt if dyspnea, chest pain, dizziness, or worsening symptoms occur to report to ER immediately. Pt verbalized understanding. Pt was following with Pulmonology in [place] 2 years ago, needs established with new [employer] Information Center Supervisor. Has hx of ADORE- does not wear [...] Sore throat Was previously seeing Pulmonology in [place], has not been seen in 2 years. Needs to establish with new java tech. Review of Systems Constitutional: Negative for activity [...] understanding. Pt was following with Pulmonology in [place] 2 years ago, needs established with new Travel Information Center Supervisor. Has hx of ADORE- does not wear [...] Orders Ambulatory referral to Pulmonology Bipolar depression ([facility]) Relevant Medications lamoTRIgine (LaMICtal) 100 MG tablet Chronic rhinitis Relevant Medications cetirizine (ZyrTEC) 10 MG tablet Emphysema of lung ([facility]) Relevant Orders Ambulatory referral to Pulmonology documented in this encounter [facility] 01-31-2024 Instructions Erica Pompa NP - 01/31/2024 2:00 PM EDT Start and finish all medications as prescribed. Have chest X ray completed YVAN Referral sent to pulmonology-Dr. Warner They will call you. If you do not hear from them within 2 weeks, call my office. Worsening shortness of breath, chest pain, gasping for air, dizziness, GO TO ER!!!! documented in this encounter [facility] 01-15-2024 History of Present illness Narrative Images from the original note were not included. OUTPATIENT NEPHROLOGY FOLLOW UP NOTE Date of Service: 01/15/24 PCP: SHAWN ZAMORA MD History of Present Illness Danielle Montana is a 58 y.o. 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 She was started on Solu-Medrol and atovaquone. 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 She was started on Rituxan on 10/24/2023 and her 2nd dose was 11/07/2023. She tells me she has been doing reasonably well since last visit. Denies any shortness of breath, chest pain, dysuria, gross hematuria or flank pain Dr. Wild is the supervising physician in the office today At the time of discharge, her creatinine was down to 2.12 mg/ dL. Problem List Acute kidney injury from September of 2023 likely related to chronic intake of lisinopril and NSAIDs other etiologies not to be ruled out with baseline creatinine of about 0.8 from 2020. Renal ultrasound from September of 2023 showed right kidney size was 10.1 cm left kidney size was 10.9 cm. Otherwise unremarkable renal ultrasound . Hepatitis panel is negative. HIV is negative rheumatoid factor was elevated which was 76. C3 and C4 were normal. Serum free light chain ratio is 0.9 SAUL is negative. Urine protein to creatinine ratio is 4.7 g/g. Anti-GBM was negative. SPEP was unremarkable. UPEP is pending. 24 hour urine protein was 6380 mg. SAUL is negative. SPEP is pending. Myeloperoxidase antibodies are positive which is greater than 8. Proteinase 3 antibodies are negative. 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 27 glomeruli were sampled with 2 of them being sclerosed. Twenty-three glomerular demonstrate segmental to circumferential cellular crescents. Focal fibrinoid necrosis shown in 3 glomerular. Mild tubular interstitial scarring in 20-25% of sampled cortex. Hypertension Chronic Obstructive Pulmonary Disease lumen emphysema Fibromyalgia GERD Chronic back pain Cluster headaches Degenerative joint disease Cervical cancer status post total hysterectomy Toe amputation Polysubstance abuse Echocardiogram from September of 2023 showed an LV ejection fraction of 60-65% with grade 2 diastolic dysfunction. No evidence of significant valvular abnormalities. No pericardial effusion Medical, Surgical, Family & Social History Medical History: Past Medical History: Diagnosis Date [place]acute [place] 10/18/2023 Anxiety Back pain Cancer [place] cervical cancer approx 1994 Cervical cancer [place] Chest pain Cluster headache COPD (chronic obstructive pulmonary disease) [place] Degenerative arthritis Depression Dry mouth Emphysema Emphysema of lung ([facility] Fibromyalgia Fibromyalgia, primary GERD (gastroesophageal reflux disease) Heartburn Hypertension Joint pain Morbid obesity ([facility] Mouth sores MRSA (methicillin resistant Staphylococcus aureus) Nausea Obesity Osteoporosis PAD (peripheral artery disease) ([facility] PVD (peripheral vascular disease) ([facility] Sleep apnea cpap SOB (shortness of breath) Stiff muscles Swollen ankles Weakness Surgical History: Past Surgical History: Procedure Laterality Date ABDOMINAL SURGERY BILATERAL SI JOINT INJECTION #1 Bilateral 11/07/2016 Performed by Mony Klein MD at [facility] COLONOSCOPY N/A 10/14/2019 Performed by Eben Lindsay DO at [facility] Coronary angiogram and left ventricular gram/pressure N/A 11/18/2016 Performed by Bobby Stanton MD at [facility] CARDIAC CATH LABS HYSTERECTOMY 06/22/1998 INCISION AND DRAINAGE and irrigation w/Drain LEFT HAND and left elbow Left 11/16/2015 Performed by Kt Ann MD at [facility] TOE AMPUTATION Social History: Social History Socioeconomic History Marital status: Single Spouse name: Not on file Number of children: Not on file Years of education: Not on file Highest education level: Not on file Occupational History Not on file Tobacco Use Smoking status: Every Day Current packs/day: 1.00 Average packs/day: 1 pack/day for 44.0 years (44.0 ttl pk-yrs) Types: Cigarettes Smokeless tobacco: Never Vaping Use Vaping status: Never Used Substance and Sexual Activity Alcohol use: Not Currently Drug use: Not Currently Types: Cocaine, Marijuana Comment: pt says not using anything, used cocaine last night Sexual activity: Defer Other Topics Concern Coffee Not Asked Tea Not Asked Carbonated Beverages Not Asked Chocolate Not Asked Caffeine Use Yes Comment: COFFEE 2 CUPS DAILY Social History Narrative Not on file Social Determinants of Health Financial Resource Strain: Not on file Food Insecurity: No Food Insecurity (10/19/2023) Hunger Screening Food Insecurity - Worry: Never True Food Insecurity - Inability: Never True Transportation Needs: No Transportation Needs (10/19/2023) PRAPARE - Transportation Lack of Transportation (Medical): No Lack of Transportation (Non-Medical): No Physical Activity: Not on file Stress: Not on file Social Connections: Not on file Interpersonal Safety: Not At Risk (10/19/2023) Humiliation, Afraid, Rape, and Kick questionnaire Fear of Current or Ex-Partner: No Emotionally Abused: No Physically Abused: No Sexually Abused: No Housing Instability: Low Risk (10/19/2023) Housing Instability Housing Instability: No Family History: Family History Problem Relation Age of Onset Hypertension Mother Diabetes Mother Cataracts Mother Depression Mother Hypertension Father Heart disease Father Alcohol abuse Father Depression Father Cancer Sister Thyroid disease Sister Anxiety disorder Sister Depression Sister Glaucoma Son Allergies & Medications Allergies: Allergies Allergen Reactions Lyrica [Pregabalin] Other (See Comments) Mental changes Codeine Vomiting Other reaction(s): Nausea And Vomiting Bactrim [Sulfamethoxazole-Trimethoprim] Hives Current Meds: Current Outpatient Medications Medication Sig Dispense Refill atovaquone (MEPRON) 750 mg/5 mL suspension Take 10 mL (1,500 mg total) by mouth daily with breakfast. 210 mL 0 busPIRone (BUSPAR) 5 mg tablet Take 1 tablet (5 mg total) by mouth in the morning and 1 tablet (5 mg total) before bedtime. 60 tablet 0 carvediloL (COREG) 25 mg tablet Take 1 tablet (25 mg total) by mouth in the morning and 1 tablet (25 mg total) before bedtime. 60 tablet 0 cholecalciferol, vitamin D3, (VITAMIN D3 ORAL) Take 2,000 Unit by mouth daily. cyanocobalamin 1000 MCG tablet Take 1 tablet (1,000 mcg total) by mouth in the morning. 30 tablet 0 donepeziL (ARICEPT) 5 mg tablet Take 1 tablet (5 mg total) by mouth nightly. DULoxetine (CYMBALTA) 30 mg capsule Take 1 capsule (30 mg total) by mouth in the morning. 30 capsule 0 ferrous sulfate 325 (65 FE) mg tablet Take 1 tablet (325 mg total) by mouth daily with breakfast. 30 tablet 0 hydrOXYzine (ATARAX) 25 mg tablet Take 1 tablet (25 mg total) by mouth every 8 (eight) hours as needed. omeprazole (PriLOSEC) 40 mg capsule Take 1 capsule (40 mg total) by mouth in the morning. predniSONE (DELTASONE) 20 mg tablet Take 3 tablets (60 mg total) by mouth daily with breakfast. 90 tablet 0 rosuvastatin (CRESTOR) 10 mg tablet Take 1 tablet (10 mg total) by mouth in the morning. terazosin (HYTRIN) 1 mg capsule Take 1 capsule (1 mg total) by mouth nightly. 30 capsule 0 ipratropium-albuteroL (DUO-NEB) 0.5 mg-3 mg(2.5 mg base)/3 mL nebulizer Inhale 3 mL by nebulization every 4 (four) hours while awake. (Patient not taking: Reported on 01/15/2024) 90 mL 0 magnesium oxide (MAGOX) 400 mg tablet Take 1 tablet (400 mg total) by mouth in the morning and 1 tablet (400 mg total) before bedtime. (Patient not taking: Reported on 01/15/2024) 60 tablet 0 No current facility-administered medications for this visit. Review of Systems Review of Systems Physical Exam Vital Signs: Vitals: 01/15/24 1436 01/15/24 1438 BP: 136/65 130/74 BP Site: Left Arm Left Arm BP Postition: Sitting Standing BP CUFF SIZE: M (9-13 inches) M (9-13 inches) Pulse: 62 68 SpO2: 96% Weight: (!) 149.2 kg (329 lb) BMI: Body mass index is 64.25 kg/m . General appearance: alert in no apparent distress. Psychiatric: Oriented to place, time and person HEENT: atraumatic, supple, moist oral mucosa, no JVD Cardiovascular: normal S1-S2, no edema Respiratory: No respiratory distress with no use of accessory muscles. Clear to auscultation bilaterally with no wheezes or crackles Abdomen: soft, no tenderness, no guarding, positive bowel sounds and no hepato or splenomegaly Vascular: adequate pulses and no carotid bruits. Musculoskeletal: no joint swelling or tenderness. Neurologic: No focal deficit in upper or lower extremities Lymphatic: no cervical or axillary lymphadenopathy. Laboratory Studies Chemistry: Lab Results Component Value Date SODIUM 144 01/12/2024 SODIUM 142 12/19/2023 SODIUM 139 11/07/2023 K 3.8 01/12/2024 K 4.9 12/19/2023 K 5.2 (H) 11/07/2023 CL 104 01/12/2024 CL 105 12/19/2023 CL 104 11/07/2023 CO2 28 01/12/2024 CO2 28 12/19/2023 CO2 26 11/07/2023 ANIONGAP 12 01/12/2024 ANIONGAP 9 12/19/2023 ANIONGAP 9 11/07/2023 BUN 17 01/12/2024 BUN 21 12/19/2023 BUN 52 (H) 11/07/2023 CREATININE 1.22 (H) 01/12/2024 CREATININE 1.23 (H) 12/19/2023 CREATININE 1.60 (H) 11/07/2023 EGFR 51 (L) 01/12/2024 EGFR 51 (L) 12/19/2023 EGFR 37 (L) 11/07/2023 CALCIUM 9.4 01/12/2024 CALCIUM 9.5 12/19/2023 CALCIUM 9.1 11/07/2023 MG 1.6 (L) 01/12/2024 MG 2.1 10/25/2023 MG 2.2 10/24/2023 PHOSPHORUS 3.6 01/12/2024 PHOSPHORUS 3.5 10/25/2023 PHOSPHORUS 3.4 10/24/2023 IONIZEDCALC 4.8 10/25/2023 IONIZEDCALC 4.7 10/24/2023 IONIZEDCALC 4.8 10/23/2023 Lab Results Component Value Date TOTALPROTEI 6.0 12/19/2023 TOTALPROTEI 5.3 (L) 11/07/2023 ALBUMIN 3.4 12/19/2023 ALBUMIN 3.5 11/07/2023 AST 13 12/19/2023 AST 10 11/07/2023 ALT 12 12/19/2023 ALT 31 11/07/2023 BILIRUBIN Negative 01/12/2024 BILIRUBIN 0.4 12/19/2023 ALKPHOS 60 12/19/2023 ALKPHOS 46 11/07/2023 Hematology: Lab Results Component Value Date WBC 8.8 01/12/2024 WBC 8.2 12/19/2023 HGB 11.2 (L) 01/12/2024 HGB 9.6 (L) 12/19/2023 HCT 33.6 (L) 01/12/2024 HCT 30.1 (L) 12/19/2023 PLT 268 01/12/2024 PLT 361 12/19/2023 Anemia Studies: Lab Results Component Value Date IRONSAT 14 (L) 10/15/2023 IRONSAT 16 07/17/2017 FERRITIN 45 10/15/2023 [id number] 159 (L) 10/15/2023 [id number] 391 08/15/2014 FOLATE 10.3 10/15/2023 FOLATE 7.6 08/15/2014 Mineral and Bone Labs: Lab Results Component Value Date CALCIUM 9.4 01/12/2024 CALCIUM 9.5 12/19/2023 PHOSPHORUS 3.6 01/12/2024 PHOSPHORUS 3.5 10/25/2023 VITD25 23.5 (L) 01/12/2024 VITD25 24.0 (L) 08/15/2014 PTH 69 01/12/2024 Urine Studies: Lab Results Component Value Date COLOR YELLOW 01/12/2024 TURBIDITY CLEAR 01/12/2024 SPECIFICGRA 1.015 01/12/2024 NITRITE Negative 01/12/2024 PHURINE 6.5 01/12/2024 LEUKOCYTE Negative 01/12/2024 PROTEIN 300 (A) 01/12/2024 KETONES Negative 01/12/2024 UROBILINOGEN <1.1 01/12/2024 BLOODHGB Small (A) 01/12/2024 Lab Results Component Value Date UPROCRTRAT 4.15 (H) 01/12/2024 UPROCRTRAT 4.72 (H) 10/16/2023 ALBCREATRA 3,392.0 (H) 10/16/2023 ALBCREATRA 1.8 08/15/2014 Immunology Profile Lab Results Component Value Date PROTELECTR 10/15/2023 Unremarkable protein distribution, no monoclonal bands. SEDRATE 67 (H) 12/19/2023 CRP 0.8 (H) 12/19/2023 ANASCREEN Negative 10/15/2023 C3 113 10/15/2023 C4 36 10/15/2023 ANCA See Below 03/03/2021 MYELOP 1.2 (H) 02/02/2019 PROTEINASE3 0.2 10/15/2023 ANTIGLOMERU <0.2 02/02/2019 Lab Results Component Value Date HEPBCAB Negative 01/12/2024 Imaging Echocardiogram: Echo complete W/O contrast Result Date: 10/16/2023 Left Ventricle: Left ventricle appears normal in size. There is mild concentric increased wall thickness/hypertrophy. Systolic function is normal with an ejection fraction of 60-65%. Elevated LV filling pressures by tissue Doppler Right Ventricle: Systolic function is normal. Aorta: The aortic root is normal in size. Pericardium: There is no pericardial effusion. No evidence of clinically significant valve pathologies as detailed below Assessment and Plan Acute kidney injury secondary to MPO vasculitis: Her creatinine is down 1.2 mg/ dL showing signs of renal recovery. I discussed with the patient importance of avoiding NSAID medications, nephrotoxic agents and IV contrast. I discussed with the patient the importance of adequate blood pressure and glycemic control to prevent the further progression of renal disease Hypertension: I will start her on losartan 25 mg daily for renal protection and protein suppression as well as blood pressure control. MPO vasculitis: She did receive 2 doses of Rituxan with last 1 being November 07, 2023. We will set her up for her 6 month infusion in April. She will likely be on this medication for at least 2 years. She does remain on prednisone 60 mg daily. Will decrease dose by 10 mg every week until she is off. She does remain on atovaquone for PJP prophylaxis. Nephrotic range proteinuria: Again, I will restart her on losartan 25 mg daily. I would like to max her out on this medication for max renal benefits. Hypomagnesemia: I will start her on magnesium oxide 400 mg daily. Hypovitaminosis D: I will increase her cholecalciferol to 5000 units daily. This will also aid in bone health given risk for osteoporosis in long-term use of prednisone. Volume status: She does appear to be mildly hypervolemic on exam likely secondary to prednisone and nephrotic range proteinuria. I will start her on Bumex 1 mg daily until her swelling is resolved then she will take on an as-needed basis. I will have her repeat a BMP in 10 days and repeat a CKD panel follow-up in the office in 2 months time with an MD. Thank you SHAWN ZAMORA MD for allowing us to continue to participate in the care of Danielle Montana and please do not hesitate to contact me with any questions at (Office) or (Answering service). BRUCE Landon [facility] This note was created with the assistance of a speech-recognition program. Although the intention is to generate a document that actually reflects the content of the visit, no guarantees can be provided that every mistake has been identified and corrected by editing. BRUCE Landon 01/15/24 1530 BRUCE Landon 01/15/24 1531 documented in this encounter [facility] 01-04-2024 Miscellaneous Notes ----- Message from GAMAL Mccray sent at 01/02/2024 1:46 PM EDT ----- This patient will need added to next weeks add on clinic. She was never seen after hospital d/c in October and she is on rituxan. Ill put her labs in Thanks, Shazia LM to schedule f/u. documented in this encounter [facility] 01-04-2024 Telephone encounter Note ----- Message from GAMAL Mccray sent at 01/02/2024 1:46 PM EDT ----- This patient will need added to next weeks add on clinic. She was never seen after hospital d/c in October and she is on rituxan. Ill put her labs in Thanks, Shazia [facility] 01-04-2024 Telephone encounter Note LM to schedule f/u. [facility] 12-19-2023 Note Attestation signed by Elizabeth Hi MD at 12/19/2023 8:02 PM GC: I saw this patient. I personally performed the critical/vázquez portions that determines the level of service. I was directly involved in the management and treatment plan of the patient. I reviewed note and agree with the documentation [facility] Progress Note Subjective Danielle Montana is an 58 y.o. female presenting as follow up from [facility] for biopsy proven MPO Ab mediated vasculitis with R renal biopsy on 10/20/23 demonstrating diffuse necrotizing and crescentic glomerular nephritis. She was admitted to [facility] between 10/18/2023-10/25/2023 initially presenting to [facility] with bilateral upper and lower extremity [...] CT GUIDED PERCUTANEO (more content not included)... [facility] 11-29-2023 History of Present illness Narrative Pt here for truxima as scheduled. States she tolerated first infusion well and denies any reaction/side effects. PIV initiated to RAC. Brisk blood return verified, flushes with ease. NS started at KVO. Premedicated with IVP benadryl/solumedrol, and PO tylenol. Truxima infused over 2 hours. Line flushed. Pt tolerated well. PIV dc'd- pressure dressing applied. Dc'd in stable ambulatory condition. [facility] Plan of care note Problem: Pain Goal: Patient goal is pain score less than 4, able to rest, and participant in treatment plan as appropriate Description: INTERVENTIONS: 1. Encourage patient or legal artists' booking representative to report early pain and ask for pain medicine when needed 2. Assess pain using appropriate pain scale and include the scale used when documenting 3. Administer analgesics based on type and severity of pain and evaluate response within appropriate time frame 4. Implement non-pharmacological measures as appropriate and evaluate response 5. Consider cultural and social influences on pain and pain management 6. Notify LIP if interventions ineffective or patient reports new pain 7. Monitor vital signs including pulse ox, end-tidal CO2 based on pain intervention 8. Reassess pain per policy 9. Teach patient or legal artists' booking representative interventions for comforting Outcome: Progressing Note: Evaluation of progress towards goal: denied pain at the moment. Problem: Safety Goal: Patient will be injury free during hospitalization Description: INTERVENTIONS: 1. Assess patient's risk for falls and implement fall prevention plan of care per policy 2. Provide and maintain a safe environment 3. Proper use of double Identifiers 4. Medication administration using the 5 rights 5. Hand hygiene 6. Specimens are labeled at the bedside 7. Instruct patient/ patient artists' booking representative about use of safety devices 8. Include patient/ patient artists' booking representative in decisions related to safety Outcome: Progressing Note: Evaluation of progress towards goal: call light within reach, bed to lowest position [facility] Miscellaneous Notes Problem: Pain Goal: Patient goal is pain score less than 4, able to rest, and participant in treatment plan as appropriate Description: INTERVENTIONS: 1. Encourage patient or legal artists' booking representative to report early pain and ask for pain medicine when needed 2. Assess pain using appropriate pain scale and include the scale used when documenting 3. Administer analgesics based on type and severity of pain and evaluate response within appropriate time frame 4. Implement non-pharmacological measures as appropriate and evaluate response 5. Consider cultural and social influences on pain and pain management 6. Notify LIP if interventions ineffective or patient reports new pain 7. Monitor vital signs including pulse ox, end-tidal CO2 based on pain intervention 8. Reassess pain per policy 9. Teach patient or legal artists' booking representative interventions for comforting Outcome: Progressing Note: Evaluation of progress towards goal: denied pain at the moment. Problem: Safety Goal: Patient will be injury free during hospitalization Description: INTERVENTIONS: 1. Assess patient's risk for falls and implement fall prevention plan of care per policy 2. Provide and maintain a safe environment 3. Proper use of double Identifiers 4. Medication administration using the 5 rights 5. Hand hygiene 6. Specimens are labeled at the bedside 7. Instruct patient/ patient artists' booking representative about use of safety devices 8. Include patient/ patient artists' booking representative in decisions related to safety Outcome: Progressing Note: Evaluation of progress towards goal: call light within reach, bed to lowest position DISCHARGE PLANNING NOTE Danielle Montana Block Operator conducted a visit at patient bedside. Patient ws updated on transfer process. We discussed that we did find her a new physician, Shawn Zamora in [place], [place]. It is on patient's AVS for time of discharge. Patient Discharge Plan: Home with self care. New physician will be Dr. Shawn Zamora in [place], [place]. [phone]. Patient is to call at time of discharge to schedule appointments as below. Schedule a follow up appointment with new PCP for 7-10 days. Schedule a new patient appointment with new PCP as available. - Silvana Conklin RN 10/18/23 11:22 AM Images from the original note were not included. Tele-NephrologyTelemedicine Consult Note Consent Statement: I discussed risks, benefits, and alternatives of a real-time synchronous audiovisual consultation with the patient (and any accompanying persons) including the risks that the patient's personal health details and medical records will be discussed over real-time, synchronous, interactive video/audio/telecommunication technology, the visit will not be recorded without the express consent of both the provider and the patient, and that there are some limitations compared to [id number] evaluations. We elected to proceed. Nephrology Daily Progress Note INTERVAL HISTORY/History of present illness: Over the last 24 hours patient made 4.2 L. She is -3 L over the last 24 hours. Since admission the patient is -4.8 L Patient did not sleep well last night due to frequent urination. She denies any nausea or vomiting. No chest pain Patient feels tired PROBLEM LIST: Acute kidney injury from September of 2023 likely related to chronic intake of lisinopril and NSAIDs other etiologies not to be ruled out with baseline creatinine of about 0.8 from 2020. Renal ultrasound from September of 2023 showed right kidney size was 10.1 cm left kidney size was 10.9 cm. Otherwise unremarkable renal ultrasound . Hepatitis panel is negative. HIV is negative rheumatoid factor was elevated which was 76. C3 and C4 were normal. Serum free light chain ratio is 0.9 SAUL is negative. Urine protein to creatinine ratio is 4.7 g/g. Glomerular basement membrane antibodies are pending. SPEP is pending. 24 hour urine collection for protein is pending. UPEP is pending. 24 hour urine protein was 6380 mg. SAUL is negative. SPEP is pending. Myeloperoxidase antibodies are positive which is greater than 8. Peroxidase. Proteinase 3 antibodies are negative. Rheumatoid factor is high which was 76 Hypertension Chronic Obstructive Pulmonary Disease lumen emphysema Fibromyalgia GERD Chronic back pain Cluster headaches Degenerative joint disease Cervical cancer status post total hysterectomy Toe amputation Polysubstance abuse Echocardiogram from September of 2023 showed an LV ejection fraction of 60-65% with grade 2 diastolic dysfunction. No evidence of significant valvular abnormalities. No pericardial effusion VITAL SIGNS TREND: Vitals: 10/18/23 0345 10/18/23 0514 10/18/23 0520 10/18/23 0701 BP: (!) 169/91 111/60 137/58 Pulse: 75 66 62 Resp: 16 16 Temp: 36.4 C (97.6 F) 36.6 C (97.9 F) TempSrc: Axillary Oral SpO2: 97% 96% 95% Weight: (!) 150.6 kg (332 lb 1.6 oz) Height: INTAKE/OUTPUT: Intake/Output Summary (Last 24 hours) at 10/18/2023 1000 Last data filed at 10/18/2023 0743 Gross per 24 hour Intake 1120 ml Output 2200 ml Net -1080 ml I/O this shift: In: - Out: 350 [Urine:350] WEIGHT: Wt Readings from Last 3 Encounters: 10/18/23 (!) 150.6 kg (332 lb 1.6 oz) 01/02/21 130.4 kg (287 lb 8 oz) 10/27/20 136.1 kg (300 lb) busPIRone, 15 mg, oral, BID cyanocobalamin, 1,000 mcg, oral, Daily donepeziL, 5 mg, oral, Nightly DULoxetine, 60 mg, oral, Daily ferrous sulfate, 325 mg, oral, Daily with breakfast furosemide, 80 mg, intravenous, Q8H TEDDY heparin (porcine), 5,000 Units, subcutaneous, Q8H TEDDY hydrALAZINE, 100 mg, oral, Q8H TEDDY magnesium oxide, 400 mg, oral, BID metoprolol tartrate, 25 mg, oral, BID pantoprazole, 40 mg, oral, QAM AC potassium chloride, 20 mEq, oral, TID rosuvastatin, 10 mg, oral, Daily spironolactone, 25 mg, oral, Q12H TEDDY dextrose 5 % in water, 100 mL/hr, Last Rate: Stopped (10/16/23 0712) sodium chloride 0.9 %, 20 mL/hr PHYSICAL EXAM: Blood pressure 137/58, pulse 62, temperature 36.6 C (97.9 F), temperature source Oral, resp. rate 16, height 152.4 cm (5'), weight (!) 150.6 kg (332 lb 1.6 oz), SpO2 95%, not currently . Temp: [36.4 C (97.6 F)-36.6 C (97.9 F)] 36.6 C (97.9 F) Pulse: [62-75] 62 Resp: [15-20] 16 BP: (109-173)/(47-93) 137/58 FiO2 (%): [21 %] 21 % SpO2: [91 %-98 %] 95 % O2 Device: None (Room air) O2 Flow Rate (L/min): [0 L/min] 0 L/min Exam was based on my observation as well as nursing staff assessment. General appearance obese. No acute distress. Breathing comfortably. Lying flat. Respiratory she has not in respiratory distress. No wheezing Extremity she has 1+ edema LABORATORY EVALUATION: Results from last 7 days Lab Units 10/18/23 0530 10/17/23 1232 10/17/23 0446 10/16/23 1053 10/16/23 0432 10/15/23 1050 10/15/23 0522 10/14/23 2220 SODIUM mmol/L 137 -- 139 -- 137 -- 140 139 POTASSIUM mmol/L 4.2 4.2 3.6 4.8 3.2* < > 3.2* 3.1* CHLORIDE mmol/L 97* -- 101 -- 101 -- 104 107 CO2 mmol/L 29 -- 28 -- 28 -- 26 27 BUN mg/dL 37* -- 26* -- 23 -- 20 19 CREATININE mg/dL 2.98* -- 2.77* -- 2.63* -- 2.56* 2.56* CALCIUM mg/dL 9.3 -- 8.8 -- 8.4* -- 8.4* 8.1* MAGNESIUM mg/dL 2.0 -- 2.0 -- 2.1 -- 1.7* 1.8 PHOSPHORUS mg/dL 5.1* -- 4.1 -- 4.3 -- -- -- < > = values in this interval not displayed. Results from last 7 days Lab Units 10/18/23 0530 10/17/23 0446 10/16/23 0432 10/15/23 0522 10/14/23 2220 WBC X10E9/L 7.8 7.9 8.0 10.2 9.9 HEMOGLOBIN g/dL 10.5* 10.1* 9.5* 10.0* 10.9* HEMATOCRIT % 31.7* 30.3* 28.5* 30.1* 33.2* PLATELETS X10E9/L 328 278 252 312 319 Results from last 7 days Lab Units 10/18/23 0530 10/17/23 0446 10/16/23 1320 10/16/23 0432 10/15/23 1050 10/15/23 0522 TOTAL PROTEIN g/dL 6.0 5.7* -- 5.4* 4.7* 5.6* TOTAL PROTEIN, URINE, 24 HOUR mg/24h -- -- 6,380* -- -- -- ALBUMIN g/dL 3.1* 3.0* -- 2.7* 2.5* 2.8* AST U/L 14 14 -- 13 -- 14 ALT U/L 10 10 -- 9 -- 10 Results from last 7 days Lab Units 10/15/23 1050 CK TOTAL U/L 82 No results found. 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 Anca panel is positive with myeloperoxidase antibodies greater than 8. 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 Creatinine is worsening which is expected with diuresis Hypertension blood pressure is currently under good control Volume overload due to acute on chronic preserved ejection fraction heart failure decompensation. Currently on IV Lasix achieving negative balance as desired Iron deficiency anemia with B12 deficiency: Patient is currently on IV iron as well as B12 replacement Hypokalemia on KCl and Aldactone Plan : Given the positive ANCA panel nephrotic range proteinuria and worsening kidney function kidney biopsy is indicated to establish the diagnosis of ANCA associated vasculitis. In the meantime I will go ahead and start the patient on Solu-Medrol 1 g IV daily for 3 days. Patient is currently on pantoprazole. Patient will need PJP prophylaxis however dapsone and atovaquone are not available in [facility]. Patient is allergic to Bactrim. Suggest to transfer the patient to [facility] for kidney biopsy and for further management of ANCA associated vasculitis as patient may require rituximab. Once the patient is at [facility] will start PJP prophylaxis with atovaquone 0 or dapsone. Strict Is&Os. Do not start anticoagulation or antiplatelet therapy without notify Nephrology as patient will need kidney biopsy Irving Flores M.D. [facility] Thank you for your consultation and allowing us to participate in the care of Danielle Montana and please do not hesitate to call us with any questions at: Office: [phone] Office Answering Service: [phone] Please feel free to contact me through [employer] chat during the daytime hours, if no response after 5 minutes then call the answering service. This note was created with the assistance of a speech-recognition program. Although the intention is to generate a document that actually reflects the content of the visit, no guarantees can be provided that every mistake has been identified and corrected by editing. Problem: Pain Goal: Patient goal is pain score less than 4, able to rest, and participant in treatment plan as appropriate Description: INTERVENTIONS: 1. Encourage patient or legal artists' booking representative to report early pain and ask for pain medicine when needed 2. Assess pain using appropriate pain scale and include the scale used when documenting 3. Administer analgesics based on type and severity of pain and evaluate response within appropriate time frame 4. Implement non-pharmacological measures as appropriate and evaluate response 5. Consider cultural and social influences on pain and pain management 6. Notify LIP if interventions ineffective or patient reports new pain 7. Monitor vital signs including pulse ox, end-tidal CO2 based on pain intervention 8. Reassess pain per policy 9. Teach patient or legal artists' booking representative interventions for comforting Outcome: Progressing Note: Evaluation of progress towards goal: Pain assessed and treated accordingly. Problem: Safety Goal: Patient will be injury free during hospitalization Description: INTERVENTIONS: 1. Assess patient's risk for falls and implement fall prevention plan of care per policy 2. Provide and maintain a safe environment 3. Proper use of double Identifiers 4. Medication administration using the 5 rights 5. Hand hygiene 6. Specimens are labeled at the bedside 7. Instruct patient/ patient artists' booking representative about use of safety devices 8. Include patient/ patient artists' booking representative in decisions related to safety Outcome: Progressing Note: Evaluation of progress towards goal: PT is free of falls, hourly rounding is completed, area is kept clear. Problem: Knowledge Deficit Goal: Patient/patient artists' booking representative demonstrates understanding of disease process, treatment plan, medications, and discharge instructions Description: INTERVENTIONS 1. Complete learning assessment and assess knowledge base 2. Provide teaching at level of understanding 3. Provide teaching via preferred learning method(s) Outcome: Progressing Note: Evaluation of progress towards goal: Learning assessment and knowledge base assessed, teaching provided at an understandable level as needed. Problem: Safety Goal: Patient will be injury free during hospitalization Description: INTERVENTIONS: 1. Assess patient's risk for falls and implement fall prevention plan of care per policy 2. Provide and maintain a safe environment 3. Proper use of double Identifiers 4. Medication administration using the 5 rights 5. Hand hygiene 6. Specimens are labeled at the bedside 7. Instruct patient/ patient artists' booking representative about use of safety devices 8. Include patient/ patient artists' booking representative in decisions related to safety Outcome: Progressing Note: Evaluation of progress towards goal: Pt oriented to own abilities. Adequate lighting, area clear of hazards. Problem: Knowledge Deficit Goal: Patient/patient artists' booking representative demonstrates understanding of disease process, treatment plan, medications, and discharge instructions Description: INTERVENTIONS 1. Complete learning assessment and assess knowledge base 2. Provide teaching at level of understanding 3. Provide teaching via preferred learning method(s) Outcome: Progressing Note: Evaluation of progress towards goal: Pt educated on treatment plan and medications. Asked appropriate questions. Problem: Urinary Incontinence Goal: Perineal skin integrity is maintained or improved Description: INTERVENTIONS 1. Assess genitourinary system, perineal skin, labs (urinalysis), and history of incontinence to include past management, aggravating, and alleviating factors 2. Keep skin clean and dry 3. Apply skin protectant 4. Develop skin care regimen 5. Provide privacy when changing patients incontinence device to maintain their dignity 6. Consider placing an indwelling catheter 7. Collaborate with interdisciplinary team and initiate plans and interventions as needed Outcome: Progressing Note: Evaluation of progress towards goal: Pt continent, shelly care done as needed Problem: Moderate - High Risk Fall Score Description: Flores Fall Score of =/> 25 or indicated by [facility] Assessment Goal: Patient should be free from fall Description: Interventions: 1. [place] to environment 2. Hourly rounds addressing the 4 P's (Pain, Positioning, Possessions, Potty) 3. Clear area of hazards (spills, clutter, electrical cords, unnecessary equipment) 4. Place equipment (bed & TV controls, call light, phone, urinal) within reach 5. Encourage patient to wear glasses and hearing aides as appropriate 6. Maintain bed in lowest position 7. Lock wheels on bed/wheelchair 8. Provide adequate lighting, including night light 9. Assess need for additional bedding, food/fluids, pain med's prior to sleep/routinely 10. Provide gripper slippers or personal non-skid footwear 11. Teach patient and patient artists' booking representative to maintain environment for safety and engage in all aspects of fall prevention program 12. Remind patient to call for help before getting out of bed 13. Initiate bed/chair/exit alarms supportive devices as appropriate, (chair wedge, no-skid floor mat, raised edge mattress, hip protectors) 14. Locate patient bed assignment for optimal visualization 15. Evaluate and identify Safe Patient Handling Equipment needs 16. Provide supervision when out of bed or chair 17. Utilize gait belt as needed to assist with ambulation 18. Place adaptive equipment (cane, walker) within reach 19. Request patient artists' booking representative bring adaptive equipment/mobility aids from home or obtain and provide as needed 20. Consult pharmacy regarding effects of med's affecting mobility, cognition, and alternatives 21. Obtain physician order for PT if risk factors associated with mobility are present 22. Obtain physician order for OT as appropriate 23. Utilize diversional activities 24. Educate patient and patient artists' booking representative how to maintain a safe environment during visitation times (notify nurse prior to leaving bedside) 25. Consider appropriateness of medical or non-medical imaging tech 26. Set up voiding schedule as appropriate (every 2 hours) Outcome: Progressing Note: Evaluation of progress towards goal: Pt oriented to own abilities. Adequate lighting, area clear of hazards. Images from the original note were not included. Tele-NephrologyTelemedicine Consult Note Consent Statement: I discussed risks, benefits, and alternatives of a real-time synchronous audiovisual consultation with the patient (and any accompanying persons) including the risks that the patient's personal health details and medical records will be discussed over real-time, synchronous, interactive video/audio/telecommunication technology, the visit will not be recorded without the express consent of both the provider and the patient, and that there are some limitations compared to [id number] evaluations. We elected to proceed. Nephrology Daily Progress Note INTERVAL HISTORY/History of present illness: Over the last 24 hours patient made 4.2 L. She is -3 L over the last 24 hours. Since admission the patient is -4.8 L Patient did not sleep well last night due to frequent urination. She denies any nausea or vomiting. No chest pain PROBLEM LIST: Acute kidney injury from September of 2023 likely related to chronic intake of lisinopril and NSAIDs other etiologies not to be ruled out with baseline creatinine of about 0.8 from 2020. Renal ultrasound from September of 2023 showed right kidney size was 10.1 cm left kidney size was 10.9 cm. Otherwise unremarkable renal ultrasound . Hepatitis panel is negative. HIV is negative rheumatoid factor was elevated which was 76. C3 and C4 were normal. Serum free light chain ratio is 0.9 SAUL is negative. Urine protein to creatinine ratio is 4.7 g/g. SAUL is pending. [id number]-[id number] DNA is pending. Anca is pending. Glomerular basement membrane antibodies are pending. SPEP is pending. 24 hour urine collection for protein is pending. UPEP is pending. Hypertension Chronic Obstructive Pulmonary Disease lumen emphysema Fibromyalgia GERD Chronic back pain Cluster headaches Degenerative joint disease Cervical cancer status post total hysterectomy Toe amputation Polysubstance abuse Echocardiogram from September of 2023 showed an LV ejection fraction of 60-65% with grade 2 diastolic dysfunction. No evidence of significant valvular abnormalities. No pericardial effusion VITAL SIGNS TREND: Vitals: 10/17/23 0328 10/17/23 0632 10/17/23 0649 10/17/23 0829 BP: 173/71 173/71 141/72 Pulse: 73 75 Resp: 18 20 Temp: 36.6 C (97.9 F) 36.7 C (98.1 F) TempSrc: Oral Oral SpO2: 95% 94% Weight: (!) 151.3 kg (333 lb 8 oz) (!) 148.3 kg (326 lb 14.4 oz) Height: INTAKE/OUTPUT: Intake/Output Summary (Last 24 hours) at 10/17/2023 1027 Last data filed at 10/17/2023 0957 Gross per 24 hour Intake 902.31 ml Output 3450 ml Net -2547.69 ml I/O this shift: In: 240 [P.O.:240] Out: 300 [Urine:300] WEIGHT: Wt Readings from Last 3 Encounters: 10/17/23 (!) 148.3 kg (326 lb 14.4 oz) 01/02/21 130.4 kg (287 lb 8 oz) 10/27/20 136.1 kg (300 lb) busPIRone, 15 mg, oral, BID cyanocobalamin, 1,000 mcg, oral, Daily donepeziL, 5 mg, oral, Nightly DULoxetine, 60 mg, oral, Daily ferrous sulfate, 325 mg, oral, Daily with breakfast furosemide, 80 mg, intravenous, Q8H TEDDY heparin (porcine), 5,000 Units, subcutaneous, Q8H TEDDY hydrALAZINE, 100 mg, oral, Q8H TEDDY magnesium oxide, 400 mg, oral, BID metoprolol tartrate, 25 mg, oral, BID pantoprazole, 40 mg, oral, QAM AC potassium chloride, 20 mEq, oral, TID rosuvastatin, 10 mg, oral, Daily spironolactone, 25 mg, oral, Daily dextrose 5 % in water, 100 mL/hr, Last Rate: Stopped (10/16/23 0712) sodium chloride 0.9 %, 20 mL/hr PHYSICAL EXAM: Blood pressure 141/72, pulse 75, temperature 36.7 C (98.1 F), temperature source Oral, resp. rate 20, height 152.4 cm (5'), weight (!) 148.3 kg (326 lb 14.4 oz), SpO2 94%, not currently . Temp: [36.6 C (97.9 F)-36.8 C (98.2 F)] 36.7 C (98.1 F) Pulse: [67-87] 75 Resp: [18-20] 20 BP: (141-174)/(67-117) 141/72 SpO2: [93 %-98 %] 94 % O2 Device: None (Room air) O2 Flow Rate (L/min): [0 L/min] 0 L/min Exam was based on my observation as well as nursing staff assessment. General appearance obese. No acute distress. Breathing comfortably. Lying flat. Respiratory she has not in respiratory distress. No wheezing Extremity she has 2+ edema LABORATORY EVALUATION: Results from last 7 days Lab Units 10/17/2344510/16/23 1053 10/16/23 04310/15/23 10510/15/23 0510/14/23 2220 SODIUM mmol/L 139 -- 137 -- 140 139 POTASSIUM mmol/L 3.6 4.8 3.2* 3.5 3.2* 3.1* CHLORIDE mmol/L 101 -- 101 -- 104 107 CO2 mmol/L 28 -- 28 -- 26 27 BUN mg/dL 26* -- 23 -- 20 19 CREATININE mg/dL 2.77* -- 2.63* -- 2.56* 2.56* CALCIUM mg/dL 8.8 -- 8.4* -- 8.4* 8.1* MAGNESIUM mg/dL 2.0 -- 2.1 -- 1.7* 1.8 PHOSPHORUS mg/dL 4.1 -- 4.3 -- -- -- Results from last 7 days Lab Units 10/17/2344510/16/23 04310/15/23 0510/14/23 2220 WBC X10E9/L 7.9 8.0 10.2 9.9 HEMOGLOBIN g/dL 10.1* 9.5* 10.0* 10.9* HEMATOCRIT % 30.3* 28.5* 30.1* 33.2* PLATELETS X10E9/L 278 252 312 319 Results from last 7 days Lab Units 10/17/2344510/16/23 04310/15/23 10510/15/23 05 TOTAL PROTEIN g/dL 5.7* 5.4* 4.7* 5.6* ALBUMIN g/dL 3.0* 2.7* 2.5* 2.8* AST U/L 14 13 -- 14 ALT U/L 10 9 -- 10 Results from last 7 days Lab Units 10/15/23 1050 CK TOTAL U/L 82 NM ventiliation imaging perfusion lung scan Result Date: 10/17/2023 Clinical history:Elevated d-dimer and shortness of breath [...] Tony Lowery MD on 10/17/2023 9:13 AM Vas venous duplex lwr bilateral Result Date: 10/16/2023 Right: Limited visualization of veins in the thigh and calf due to edema and body habitus. Remaining visualized deep venous segments are compressible with spontaneous phasic spectral Doppler waveforms. Superficial veins are compressible. Left: Limited visualization of veins in the thigh and calf due to edema and body habitus. Remaining visualized deep venous segments are compressible with spontaneous phasic spectral Doppler waveforms. Superficial veins are compressible. General: In-patient, bedside examination. Echo complete W/O contrast Result Date: 10/16/2023 Left Ventricle: Left ventricle appears normal in size. There is mild concentric increased wall thickness/hypertrophy. Systolic function is normal with an ejection fraction of 60-65%. Elevated LV filling pressures by tissue Doppler Right Ventricle: Systolic function is normal. Aorta: The aortic root is normal in size. Pericardium: There is no pericardial effusion. No evidence of clinically significant valve pathologies as detailed below IMPRESSION: Acute kidney injury of uncertain etiology. This is likely due to chronic NSAIDs use or could be due to cardiorenal syndrome Hypertension blood pressure is on the high side Volume overload due to acute on chronic preserved ejection fraction heart failure decompensation. Currently on IV Lasix achieving negative balance as desired Iron deficiency anemia with B12 deficiency: Patient is currently on IV iron as well as B12 replacement Hypokalemia on KCl and Aldactone Plan : Increase Aldactone Continue with IV Lasix. Replace electrolytes per scale. No indication for renal replacement therapy this point. Follow-up rest of serology workup Irving Flores M.D. [facility] Thank you for your consultation and allowing us to participate in the care of Danielle Montana and please do not hesitate to call us with any questions at: Office: [phone] Office Answering Service: [phone] Please feel free to contact me through [employer] chat during the daytime hours, if no response after 5 minutes then call the answering service. This note was created with the assistance of a speech-recognition program. Although the intention is to generate a document that actually reflects the content of the visit, no guarantees can be provided that every mistake has been identified and corrected by editing. Problem: Pain Goal: Patient goal is pain score less than 4, able to rest, and participant in treatment plan as appropriate Description: INTERVENTIONS: 1. Encourage patient or legal artists' booking representative to report early pain and ask for pain medicine when needed 2. Assess pain using appropriate pain scale and include the scale used when documenting 3. Administer analgesics based on type and severity of pain and evaluate response within appropriate time frame 4. Implement non-pharmacological measures as appropriate and evaluate response 5. Consider cultural and social influences on pain and pain management 6. Notify LIP if interventions ineffective or patient reports new pain 7. Monitor vital signs including pulse ox, end-tidal CO2 based on pain intervention 8. Reassess pain per policy 9. Teach patient or legal artists' booking representative interventions for comforting Outcome: Progressing Note: Evaluation of progress towards goal: Patient agrees to notify the nurse with any sudden change / increase in pain. Problem: Safety Goal: Patient will be injury free during hospitalization Description: INTERVENTIONS: 1. Assess patient's risk for falls and implement fall prevention plan of care per policy 2. Provide and maintain a safe environment 3. Proper use of double Identifiers 4. Medication administration using the 5 rights 5. Hand hygiene 6. Specimens are labeled at the bedside 7. Instruct patient/ patient artists' booking representative about use of safety devices 8. Include patient/ patient artists' booking representative in decisions related to safety Outcome: Progressing Note: Evaluation of progress towards goal: Patient will remain safe and free from injury. Problem: Low Risk Fall Score Description: Flores Fall Score of 0 - 24 or indicated by [facility] Assessment Goal: Patient should be free from fall Description: Interventions: 1. [place] to environment 2. Hourly rounds addressing the 4 P's (Pain, Positioning, Possessions, Potty) 3. Clear area of hazards (spills, clutter, electrical cords, unnecessary equipment) 4. Place equipment (bed & TV controls, call light, phone, urinal) within reach 5. Encourage patient to wear glasses and hearing aides as appropriate 6. Maintain bed in lowest position 7. Lock wheels on bed/wheelchair 8. Provide adequate lighting, including night light 9. Assess need for additional bedding, food/fluids, pain med's prior to sleep/routinely 10. Provide gripper slippers or personal non-skid footwear 11. Teach patient and patient artists' booking representative to maintain environment for safety and engage in all aspects of fall prevention program Outcome: Progressing Note: Evaluation of progress towards goal: Patient will remain free from falls. Problem: Safety Goal: Patient will be injury free during hospitalization Description: INTERVENTIONS: 1. Assess patient's risk for falls and implement fall prevention plan of care per policy 2. Provide and maintain a safe environment 3. Proper use of double Identifiers 4. Medication administration using the 5 rights 5. Hand hygiene 6. Specimens are labeled at the bedside 7. Instruct patient/ patient artists' booking representative about use of safety devices 8. Include patient/ patient artists' booking representative in decisions related to safety Outcome: Progressing Note: Evaluation of progress towards goal: Pt remains free from falls or accidental injury during stay. Fall prevention measures in place. Hourly rounding per RN and NA maintained. Problem: Potential for Compromised Skin Integrity Goal: Skin integrity is maintained or improved Description: Patient's goal is: INTERVENTIONS 1. Perform initial skin assessment on admission and as needed 2. Turn patient every 2 hours and PRN 3. Relieve pressure to bony prominences 4. Avoid shearing 5. Keep skin clean and dry 6. Alternate a full bath with partial baths for elderly 7. Apply lotion/moisturizer on skin 8. Monitor patient's hygiene practices 9. Float heels 10. Collaborate with interdisciplinary team and initiate plans and interventions as needed Outcome: Progressing Note: Evaluation of progress towards goal: Will assess patient ability to turn self. Will assist in reposition when needed. Problem: Pain Goal: Patient goal is pain score less than 4, able to rest, and participant in treatment plan as appropriate Description: INTERVENTIONS: 1. Encourage patient or legal artists' booking representative to report early pain and ask for pain medicine when needed 2. Assess pain using appropriate pain scale and include the scale used when documenting 3. Administer analgesics based on type and severity of pain and evaluate response within appropriate time frame 4. Implement non-pharmacological measures as appropriate and evaluate response 5. Consider cultural and social influences on pain and pain management 6. Notify LIP if interventions ineffective or patient reports new pain 7. Monitor vital signs including pulse ox, end-tidal CO2 based on pain intervention 8. Reassess pain per policy 9. Teach patient or legal artists' booking representative interventions for comforting Outcome: Progressing Note: Evaluation of progress towards goal: Pt able to report pain according to 0/10 pain scale. Medicating patient for pain per orders. Problem: Safety Goal: Patient will be injury free during hospitalization Description: INTERVENTIONS: 1. Assess patient's risk for falls and implement fall prevention plan of care per policy 2. Provide and maintain a safe environment 3. Proper use of double Identifiers 4. Medication administration using the 5 rights 5. Hand hygiene 6. Specimens are labeled at the bedside 7. Instruct patient/ patient artists' booking representative about use of safety devices 8. Include patient/ patient artists' booking representative in decisions related to safety Outcome: Progressing Note: Evaluation of progress towards goal: Pt's risk for falls assessed and fall prevention implemented as needed, safe environment provided and maintained, hand hygiene completed. Problem: Infection Goal: Absence of infection during hospitalization Description: Interventions: 1. Assess and monitor for signs and symptoms of infection 2. Monitor lab/diagnostic results 3. Monitor all insertion sites i.e., indwelling lines, tubes and drains 4. Monitor endotracheal (as able) and nasal secretions for changes in amount and color 5. Administer medications as ordered 6. Instruct and encourage patient and family to use good hand hygiene technique 7. Identify and instruct patient/patient artists' booking representative in use of appropriate isolation precautions for identified infection/symptoms 8. Provide and discuss with patient/patient artists' booking representative on educational MDRO sheet 9. Encourage and monitor nutritional status daily and consult developer programmer if indicated 10. Implement neutropenic guidelines as needed 11. Review exposure to history of communicable disease and recent travel history on admission 12. Encourage annual influenza vaccine 13. Encourage pneumonia vaccine Outcome: Progressing Note: Evaluation of progress towards goal: Patient VS WNL, remains afebrile for shift. Problem: Cardiovascular - Adult Goal: Maintains optimal cardiac output and hemodynamic stability Description: Patient's goal is: INTERVENTIONS: 1. Monitor vital signs, rhythm, and trends 2. Monitor for bleeding, hypotension and signs of decreased cardiac output 3. Administer ordered vasoactive medications to optimize hemodynamic stability 4. Monitor arterial and/or venous puncture sites for bleeding and/or hematoma 5. Assess quality of pulses, skin color and temperature 10/16/20231651 by GAMAL Aden Outcome: Progressing Note: Evaluation of progress towards goal: Vitals WNL, patient is nicanor nephro consulted. I/O's continued 10/16/20231650 by GAMAL Aden Note: Evaluation of progress towards goal: Vitals WNL, patient is nicanor nephro consulted. I/O's continued. Images from the original note were not included. Tele-NephrologyTelemedicine Consult Note Consent Statement: I discussed risks, benefits, and alternatives of a real-time synchronous audiovisual consultation with the patient (and any accompanying persons) including the risks that the patient's personal health details and medical records will be discussed over real-time, synchronous, interactive video/audio/telecommunication technology, the visit will not be recorded without the express consent of both the provider and the patient, and that there are some limitations compared to [id number] evaluations. We elected to proceed. Nephrology Daily Progress Note INTERVAL HISTORY/History of present illness: Patient denies any nausea or vomiting. She still has significant lower extremity swelling. No dizziness or lightheadedness PROBLEM LIST: Acute kidney injury from September of 2023 likely related to chronic intake of lisinopril and NSAIDs other etiologies not to be ruled out with baseline creatinine of about 0.8 from 2020. Renal ultrasound from September of 2023 showed right kidney size was 10.1 cm left kidney size was 10.9 cm. Otherwise unremarkable renal ultrasound . Hepatitis panel is negative. HIV is negative rheumatoid factor was elevated which was 76. C3 and C4 were normal. Serum free light chain ratio is 0.9 SAUL is pending. Qvrm-picsxk-trwbeacl DNA is pending. Anca is pending. Glomerular basement membrane antibodies are pending. SPEP is pending. Urine protein to creatinine ratio is pending Hypertension Chronic Obstructive Pulmonary Disease lumen emphysema Fibromyalgia GERD Chronic back pain Cluster headaches Degenerative joint disease Cervical cancer status post total hysterectomy Toe amputation Polysubstance abuse Echocardiogram from September of 2023 is pending VITAL SIGNS TREND: Vitals: 10/16/23 0542 10/16/23 0725 10/16/23 0805 10/16/23 0807 BP: 168/79 (!) 148/117 Pulse: 85 77 Resp: 16 14 18 Temp: 36.8 C (98.2 F) 36.7 C (98 F) TempSrc: Oral Oral SpO2: 96% 95% Weight: Height: INTAKE/OUTPUT: Intake/Output Summary (Last 24 hours) at 10/16/2023 1032 Last data filed at 10/16/2023 0840 Gross per 24 hour Intake 2702.13 ml Output 4950 ml Net -2247.87 ml I/O this shift: In: 450 [P.O.:450] Out: 650 [Urine:650] WEIGHT: Wt Readings from Last 3 Encounters: 10/16/23 (!) 151.3 kg (333 lb 8 oz) 01/02/21 130.4 kg (287 lb 8 oz) 10/27/20 136.1 kg (300 lb) busPIRone, 15 mg, oral, BID donepeziL, 5 mg, oral, Nightly DULoxetine, 60 mg, oral, Daily ferrous sulfate, 325 mg, oral, Daily with breakfast furosemide, 60 mg, intravenous, Q8H TEDDY heparin (porcine), 5,000 Units, subcutaneous, Q8H TEDDY hydrALAZINE, 50 mg, oral, Q8H TEDDY magnesium oxide, 400 mg, oral, BID pantoprazole, 40 mg, oral, QAM AC potassium chloride, 20 mEq, oral, TID rosuvastatin, 10 mg, oral, Daily dextrose 5 % in water, 100 mL/hr, Last Rate: Stopped (10/16/23 0712) sodium chloride 0.9 %, 20 mL/hr PHYSICAL EXAM: Blood pressure (!) 148/117, pulse 77, temperature 36.7 C (98 F), temperature source Oral, resp. rate 18, height 152.4 cm (5'), weight (!) 151.3 kg (333 lb 8 oz), SpO2 95%, not currently . Temp: [36.4 C (97.5 F)-36.8 C (98.2 F)] 36.7 C (98 F) Pulse: [64-85] 77 Resp: [14-18] 18 BP: (136-168)/(62-117) 148/117 SpO2: [92 %-98 %] 95 % O2 Device: None (Room air) O2 Flow Rate (L/min): [0 L/min] 0 L/min Exam was based on my observation as well as nursing staff assessment. General appearance obese. No acute distress. Breathing comfortably. Lying flat. Respiratory she does have expiratory wheezing Extremity she has 2+ edema LABORATORY EVALUATION: Results from last 7 days Lab Units 10/16/23 0432 10/15/23 1050 10/15/23 0510/14/23 2220 SODIUM mmol/L 137 -- 140 139 POTASSIUM mmol/L 3.2* 3.5 3.2* 3.1* CHLORIDE mmol/L 101 -- 104 107 CO2 mmol/L 28 -- 26 27 BUN mg/dL 23 -- 20 19 CREATININE mg/dL 2.63* -- 2.56* 2.56* CALCIUM mg/dL 8.4* -- 8.4* 8.1* MAGNESIUM mg/dL 2.1 -- 1.7* 1.8 PHOSPHORUS mg/dL 4.3 -- -- -- Results from last 7 days Lab Units 10/16/23 04310/15/23 0522 10/14/23 2220 WBC X10E9/L 8.0 10.2 9.9 HEMOGLOBIN g/dL 9.5* 10.0* 10.9* HEMATOCRIT % 28.5* 30.1* 33.2* PLATELETS X10E9/L 252 312 319 Results from last 7 days Lab Units 10/16/23 0432 10/15/23 1050 10/15/23 0522 TOTAL PROTEIN g/dL 5.4* 4.7* 5.6* ALBUMIN g/dL 2.7* PENDING 2.8* AST U/L 13 -- 14 ALT U/L 9 -- 10 Results from last 7 days Lab Units 10/15/23 1050 CK TOTAL U/L 82 Ultrasound retroperitoneal complete Result Date: 10/16/2023 US RETROPERITONEAL COMPLETE: 10/16/2023 9:06 AM Indication: [...] Maksim Unger MD on 10/16/2023 9:42 AM IMPRESSION: Acute kidney injury of uncertain etiology. This is likely due to chronic NSAIDs use Hypertension blood pressure is on the high side Volume overload with bilateral lower extremity edema. Echocardiogram has been ordered. Is pending. Iron deficiency anemia with B12 deficiency Hypokalemia Plan : Start IV iron Start B12 supplement Increase IV Lasix to achieve more negative balance. Increase hydralazine Add Aldactone to help with the potassium wasting Continue with oral potassium chloride Strict Is&Os. Follow-up rest of serology workup Check random urine protein to creatinine ratio 24 hour urine collection for protein and creatinine Patient is aware that she will likely require kidney biopsy which can be done as an outpatient Irving Flores M.D. [facility] Thank you for your consultation and allowing us to participate in the care of Danielle Montana and please do not hesitate to call us with any questions at: Office: [phone] Office Answering Service: [phone] Please feel free to contact me through [employer] chat during the daytime hours, if no response after 5 minutes then call the answering service. This note was created with the assistance of a speech-recognition program. Although the intention is to generate a document that actually reflects the content of the visit, no guarantees can be provided that every mistake has been identified and corrected by editing. Images from the original note were not included. DISCHARGE PLANNING NOTE Discharge Planning Assessment Danielle Montana Admit Status: Inpatient Meet: Unknown Readmission Risk: 15%. Date of Admission: 10/14/2023 GMLOS: not available at time of assessment Target Discharge Date: not available at time of assessment Discharge Planning [facility] Docent Coordinator identified self and role to the patient. Patient is agreeable to the assessment and discussion of a safe discharge plan. 10/16/23 0915 Discharge Disposition Discharge Disposition Home with Self Care County Information [facility] Patient Information Primary Caregiver Self Support System Immediate family (Patient states she has one living son and one grandson who help her out when needed.) Stressors Type of stressor Financial Explain issues Patient states finances are very tight in her home. She states she only gets $943.00/month and her rent is $650.00. She said that by the time she pays rent and her cell phone bill there are limited funds. Patient states she does receive food stamps. She states she did not qualify for disability and was rejected. Patient is currently under a Medicaid insurance plan. Income Information Income Information Unemployed Referral To Financial Resources (denies that she meets further financial means.) Community Resources Denies needs (Prior history of poly substance abuse.) Discharge Planning Living Arrangements Alone Support Systems Children (States she has one living son and one grandson. They help if needed. Patient states her other son last year from heart disease.) Assistance Needed Denies current needs. Patient stated she did not meet other financial benefits. Type of Residence Private residence Private Residence [address] [place] [address] Accessibility Steps into home Number of Steps 2 Home Care Services No Community Agencies Currently Utilized [place] (Patient states she does her own cooking and cleaning. Cleaning she just has to do it in parts and take it slow.) Established DME Comments Home nebulizer Patient expects to be discharged to: Home with self care Does the patient need discharge transport arranged? No Services Requested Discharge Disposition: Home with self care Does the patient need discharge transportation arranged?: No Patient choice offered: Other (comment) (N/A) Initial DC Assessment Completed: Yes Pharmacy: [facility] in [place], [place]. Used to use [facility]. PCP: No PCP. Tasked transition center to find patient a new PCP with a follow up in 7-10 days and a new patient appointment. Transportation at Time of Discharge: Son Patient will make her own follow up appointments: no Patient Goals: Goals home with self care (pt-stated) Evaluation of progress towards goal: patient currently does not have a PCP. Will obtain a PCP for her. PT Recommends: N/A OT Recommends: N/A Plan to prevent readmission: Find patient a primary care provider (PCP). Schedule a follow up appointment. Patient does not endorse any questions at this time. Patient Discharge Plan: Home with self care. Tasked transition center for PCP requisitions as below: Schedule a follow up appointment with new PCP for 7-10 days. Schedule a new patient appointment with new PCP as available. - Silvana Conklin RN 10/16/23 11:30 AM Problem: Pain Goal: Patient goal is pain score less than 4, able to rest, and participant in treatment plan as appropriate Description: INTERVENTIONS: 1. Encourage patient or legal artists' booking representative to report early pain and ask for pain medicine when needed 2. Assess pain using appropriate pain scale and include the scale used when documenting 3. Administer analgesics based on type and severity of pain and evaluate response within appropriate time frame 4. Implement non-pharmacological measures as appropriate and evaluate response 5. Consider cultural and social influences on pain and pain management 6. Notify LIP if interventions ineffective or patient reports new pain 7. Monitor vital signs including pulse ox, end-tidal CO2 based on pain intervention 8. Reassess pain per policy 9. Teach patient or legal artists' booking representative interventions for comforting Outcome: Progressing Note: Evaluation of progress towards goal: Pt able to report pain according to 0/10 pain scale. Medicating patient for pain per orders. Problem: Pain Goal: Patient goal is pain score less than 4, able to rest, and participant in treatment plan as appropriate Description: INTERVENTIONS: 1. Encourage patient or legal artists' booking representative to report early pain and ask for pain medicine when needed 2. Assess pain using appropriate pain scale and include the scale used when documenting 3. Administer analgesics based on type and severity of pain and evaluate response within appropriate time frame 4. Implement non-pharmacological measures as appropriate and evaluate response 5. Consider cultural and social influences on pain and pain management 6. Notify LIP if interventions ineffective or patient reports new pain 7. Monitor vital signs including pulse ox, end-tidal CO2 based on pain intervention 8. Reassess pain per policy 9. Teach patient or legal artists' booking representative interventions for comforting Outcome: Progressing Note: Evaluation of progress towards goal: Pt able to report pain according to 0/10 pain scale. Medicating patient for pain per orders. Problem: Knowledge Deficit Goal: Patient/patient artists' booking representative demonstrates understanding of disease process, treatment plan, medications, and discharge instructions Description: INTERVENTIONS 1. Complete learning assessment and assess knowledge base 2. Provide teaching at level of understanding 3. Provide teaching via preferred learning method(s) 10/15/2023 1704 by GAMAL Reyes Outcome: Progressing Note: Evaluation of progress towards goal: POC discussed with patient. Questions answered PRN. 10/15/2023 0731 by GAMAL Reyes Outcome: Progressing Note: Evaluation of progress towards goal: POC discussed with patient. Questions answered PRN. Problem: Discharge Planning Goal: Discharge to post-acute care, other facility, or home with appropriate resources Description: Patient's goal is: INTERVENTIONS 1. Conduct assessment to determine patient/family and health care team treatment goals, and need for post-acute services based on payer coverage, community resources, and patient preferences, and barriers to discharge 2. Coordinate with Social work, Care Navigation, and Utilization Review to arrange appropriate level of services according to patient's needs based on patient preference and payer coverage in collaboration with the physician and health care team 3. Address psychosocial, clinical, and financial barriers to discharge as identified in assessment in conjunction with the patient/family and health care team 4. Consult appropriate ancillary services (i.e.. PT/OT/ST, etc) as needed 5. Communicate with and update the patient/family, physician, and health care team regarding progress on the discharge plan 6. Identify discharge learning needs (meds, wound care, etc). 7. Arrange for needed discharge transportation as appropriate Outcome: Progressing Note: Evaluation of progress towards goal: Continue to assess for when appropriate. Images from the original note were not included. NEPHROLOGY CONSULT NOTE Date of Admission: 10/14/2023 10:02 PM Reason for Consult: Elevated creatinine Referring Provider: BRUCE Butcher PCP: PCP Not In System Chief Complaint: Not feeling good for the past several weeks with decreased appetite and lower extremity swelling. History of Present Illness: Danielle Montana is a 58 y.o. female who presented with the above chief complaint. The patient has a history of hypertension hyperlipidemia Chronic Obstructive Pulmonary Disease and fibromyalgia. She does have history of polysubstance abuse in the past. She presented to the hospital with the above chief complaints. She was found to have acute kidney injury with a creatinine of 2.56. Her baseline creatinine is about 0.8 from February of 2021. She was found to have hypertensive urgency. She reports worsening for cluster headache. She was noted to be hypokalemic with a potassium of 3.1. Magnesium is 1.8. Hemoglobin was 10.0. Other than the generalized weakness with decreased appetite and leg swelling she reports difficulty passing urine. Denies any history recurrent UTIs or kidney stones. Denies any family history chronic kidney disease or dialysis. Denies any recent illnesses, surgeries or procedures. She does report frequent intake of Advil for headache. We were consulted for evaluation of acute kidney injury in the setting of the above. Past Medical and Surgical History: Acute kidney injury from September of 2023 likely related to chronic intake of lisinopril and NSAIDs other etiologies not to be ruled out with baseline creatinine of about 0.8 from 2020. Renal ultrasound, CPK, serum electrophoresis, free light chains, SAUL, anti MPO, anti PR3, anti-GBM, C3, C4, hepatitis-B and C, HIV, cryoglobulins, rheumatoid factor, urine dipstick, fractional excretion of sodium and urine protein to creatinine ratio are pending. Hypertension Chronic Obstructive Pulmonary Disease lumen emphysema Fibromyalgia GERD Chronic back pain Cluster headaches Degenerative joint disease Cervical cancer status post total hysterectomy Toe amputation Polysubstance abuse Echocardiogram from September of 2023 is pending Allergies: Allergies Allergen Reactions Lyrica [Pregabalin] Other (See Comments) Mental changes Codeine Vomiting Other reaction(s): Nausea And Vomiting Bactrim [Sulfamethoxazole-Trimethoprim] Hives Home Meds: Medications Prior to Admission Medication Sig Dispense Refill Last Dose busPIRone (BUSPAR) 15 mg tablet Take 1 tablet (15 mg total) by mouth in the morning and 1 tablet (15 mg total) before bedtime. 10/14/2023 CALCIUM ORAL Take 600 mg by mouth 2 (two) times a day. 10/14/2023 cholecalciferol, vitamin D3, (VITAMIN D3 ORAL) Take 2,000 Unit by mouth daily. 10/14/2023 donepeziL (ARICEPT) 5 mg tablet Take 1 tablet (5 mg total) by mouth nightly. 10/14/2023 DULoxetine (CYMBALTA) 60 mg capsule Take 1 capsule (60 mg total) by mouth in the morning. 10/14/2023 lisinopriL (PRINIVIL,ZESTRIL) 10 mg tablet Take 1 tablet (10 mg total) by mouth in the morning. 10/14/2023 omeprazole (PriLOSEC) 40 mg capsule Take 1 capsule (40 mg total) by mouth in the morning. 10/14/2023 rosuvastatin (CRESTOR) 10 mg tablet Take 1 tablet (10 mg total) by mouth in the morning. 10/14/2023 ipratropium-albuteroL (DUO-NEB) 0.5 mg-3 mg(2.5 mg base)/3 mL nebulizer Inhale 3 mL by nebulization every 4 (four) hours while awake. 90 mL 0 Current medications: busPIRone, 15 mg, oral, BID donepeziL, 5 mg, oral, Nightly DULoxetine, 60 mg, oral, Daily [START ON 10/16/2023] heparin (porcine), 5,000 Units, subcutaneous, Q8H TEDDY naloxone, , , pantoprazole, 40 mg, oral, QAM AC rosuvastatin, 10 mg, oral, Daily Social History: Social History Socioeconomic History Marital status: Single Spouse name: Not on file Number of children: Not on file Years of education: Not on file Highest education level: Not on file Occupational History Not on file Tobacco Use Smoking status: Every Day Current packs/day: 1.00 Average packs/day: 1 pack/day for 44.0 years (44.0 ttl pk-yrs) Types: Cigarettes Smokeless tobacco: Never Vaping Use Vaping status: Never Used Substance and Sexual Activity Alcohol use: Not Currently Drug use: Not Currently Types: Cocaine, Marijuana Comment: pt says not using anything, used cocaine last night Sexual activity: Defer Other Topics Concern Coffee Not Asked Tea Not Asked Carbonated Beverages Not Asked Chocolate Not Asked Caffeine Use Yes Comment: COFFEE 2 CUPS DAILY Social History Narrative Not on file Social Determinants of Health Financial Resource Strain: Not on file Food Insecurity: No Food Insecurity (10/15/2023) Hunger Screening Food Insecurity - Worry: Never True Food Insecurity - Inability: Never True Transportation Needs: No Transportation Needs (10/15/2023) PRAPARE - Transportation Lack of Transportation (Medical): No Lack of Transportation (Non-Medical): No Physical Activity: Not on file Stress: Not on file Social Connections: Not on file Interpersonal Safety: Not At Risk (10/15/2023) Humiliation, Afraid, Rape, and Kick questionnaire Fear of Current or Ex-Partner: No Emotionally Abused: No Physically Abused: No Sexually Abused: No Housing Instability: Low Risk (10/15/2023) Housing Instability Housing Instability: No Family History: Family History Problem Relation Age of Onset Hypertension Mother Diabetes Mother Cataracts Mother Depression Mother Hypertension Father Heart disease Father Alcohol abuse Father Depression Father Cancer Sister Thyroid disease Sister Anxiety disorder Sister Depression Sister Glaucoma Son Review of Systems: She reports decreased appetite. Reports generalized weakness. Reports edema. Reports difficulty passing urine. Denies any fevers, chills or night sweats. Denies any earaches, runny nose or sore throat. Denies any cough, sputum production or shortness of breath. Denies any chest pain or palpitation. Denies any nausea, vomiting, abdominal pain, diarrhea or constipation. Denies any pain or burning on urination but reports passing urine. Reports edema. Denies any new skin rashes, lesions or ulcers. Denies any new joint aches or swelling. Denies any focal weakness or paresthesia or tremors. Denies any easy bruising Physical Exam Vitals: 10/15/23 0125 10/15/23 0202 10/15/23 0607 10/15/23 0720 BP: (!) 142/92 149/85 156/81 (!) 167/92 Pulse: 65 58 61 57 Resp: 17 20 18 18 Temp: 36.5 C (97.7 F) 36.6 C (97.9 F) TempSrc: Oral Oral SpO2: 96% 98% 98% 97% Weight: (!) 166 kg (366 lb) Height: 152.4 cm (5') INTAKE/OUTPUT:No intake or output data in the 24 hours ending 10/15/23 1010 No intake/output data recorded. Vital Signs: Blood pressure (!) 167/92, pulse 57, temperature 36.6 C (97.9 F), temperature source Oral, resp. rate 18, height 152.4 cm (5'), weight (!) 166 kg (366 lb), SpO2 97%, not currently . Respiratory Source: O2 Device: None (Room air) Admission Weight: Weight: (!) 152.4 kg (336 lb) Physical exam was obtained by my observation on the video conference as well as his nurse's physical assessment. General appearance: alert in no apparent distress. Psychiatric: Oriented to place, time and person HEENT: atraumatic, supple, moist oral mucosa, no JVD Cardiovascular: normal S1-S2 Respiratory: No respiratory distress with no use of accessory muscles. Clear to auscultation bilaterally with no wheezes or crackles Abdomen: soft, no tenderness, no guarding, positive bowel sounds and no hepato or splenomegaly Cardiovascular: 2+ edema Vascular: adequate pulses and no carotid bruits. Musculoskeletal: no joint swelling or tenderness. Neurologic: No focal deficit in upper or lower extremities Lymphatic: no cervical or axillary lymphadenopathy. Laboratory Workup: Results from last 7 days Lab Units 10/15/23 0522 10/14/23 2220 SODIUM mmol/L 140 139 POTASSIUM mmol/L 3.2* 3.1* CHLORIDE mmol/L 104 107 CO2 mmol/L 26 27 ANION GAP mmol/L 10 5 BUN mg/dL 20 19 CREATININE mg/dL 2.56* 2.56* CALCIUM mg/dL 8.4* 8.1* MAGNESIUM mg/dL 1.7* 1.8 Results from last 7 days Lab Units 10/15/23 0522 TOTAL PROTEIN g/dL 5.6* ALBUMIN g/dL 2.8* AST U/L 14 ALT U/L 10 TOTAL BILIRUBIN mg/dL 0.4 ALK PHOS U/L 61 Results from last 7 days Lab Units 10/15/23 0522 10/14/23 2220 WBC X10E9/L 10.2 9.9 HEMOGLOBIN g/dL 10.0* 10.9* HEMATOCRIT % 30.1* 33.2* PLATELETS X10E9/L 312 319 Lab Results Component Value Date IRON 39 (L) 07/17/2017 TIBC 242 (L) 07/17/2017 IRONSAT 16 07/17/2017 Results from last 7 days Lab Units 10/15/23 0522 10/14/23 2220 GLUCOSE mg/dL 103* 95 Urine Lab Results Component Value Date COLOR YELLOW 02/02/2019 TURBIDITY HAZY (A) 02/02/2019 SPECIFICGRA >=1.030 06/21/2019 SPECIFICGRA 1.017 02/02/2019 NITRITE Negative 02/02/2019 PHURINE 5.5 02/02/2019 LEUKOCYTE Negative 06/21/2019 LEUKOCYTE MODERATE (A) 02/02/2019 PROTEIN Trace (A) 02/02/2019 KETONES Negative 02/02/2019 UROBILINOGEN 0.2 06/21/2019 UROBILINOGEN 0.2 02/02/2019 BLOODHGB Large (A) 02/02/2019 Lab Results Component Value Date URINECREATI 85.93 02/02/2019 PROTUR 350 (H) 02/02/2019 MICROALBUR 0.3 08/15/2014 Immunology Profile Lab Results Component Value Date PROTELECTR 02/02/2019 Unremarkable protein distribution, no monoclonal bands. SEDRATE 18 03/03/2021 CRP 1.0 (H) 03/03/2021 ANASCREEN Negative 03/03/2021 C3 121 02/02/2019 C4 34 02/02/2019 MYELOP 1.2 (H) 02/02/2019 PROTEINASE3 <0.2 02/02/2019 No results found for: HAV , HEPAIGM , HEPBIGM , HEPBCAB , HBEAG , HEPCAB Imaging: Chest x-ray which revealed mild pulmonary edema. Impression and Plan: 1. Acute kidney injury of uncertain etiology. Could related to chronic intake of NSAIDs and ongoing intake of lisinopril. The patient is volume overloaded and so her decreased p.o. intake does not explain her acute kidney injury. It could related to other etiologies such as nephrotic syndrome especially with her edema and low albumin. Renal ultrasound serologies and urine studies will be ordered. Lisinopril will be held. Unable to administer IV fluids given her edema. Advise avoiding nephrotoxins such as NSAIDs and IV contrast. Advise avoiding hypotension. 2. Hypertension: Unable to restart lisinopril because of acute kidney injury. Will hold off on calcium channel blockers given edema. Hold off on beta blockers given her relatively low heart rate. Will start hydralazine. IV hydralazine and IV labetalol will be ordered. Will continue to follow up blood pressure and titrate accordingly. 3. Bilateral lower extremity edema. Lower extremity Doppler will be ordered. Echocardiogram will be ordered. Urine dipstick with urine protein creatinine ratio will be ordered to rule out nephrotic syndrome. IV Lasix was ordered. IV fluids was discontinued. Will assess edema and diuretic regimen in a.m.. 4. Hypokalemia: Continue to follow potassium and replace per sliding scale as needed. Given that the IV Lasix will be started, I will start the scheduled potassium chloride. 5. Hypomagnesemia: Magnesium oxide will be added. Continue to follow magnesium and replace per sliding scale as needed. 6. Hypocalcemia: Will check ionized calcium replace per sliding scale as needed. Corrected calcium is normal given her low albumin. 7. Anemia: Iron studies B12 and folate and stool occult will be ordered and further recommendations will be made accordingly. Thank you for your consultation and allowing us to participate in the care of Danielle Montana and please do not hesitate to call us with any questions at: Office: [phone] Office Answering Service: [phone] Fran Wild M.D. This note was created with the assistance of a speech-recognition program. Although the intention is to generate a document that actually reflects the content of the visit, no guarantees can be provided that every mistake has been identified and corrected by editing. Consults Tele-Nephrology Telemedicine Consult Note Consent Statement: I discussed risks, benefits, and alternatives of a real-time synchronous audiovisual consultation with the patient (and any accompanying persons) including the risks that the patient's personal health details and medical records will be discussed over real-time, synchronous, interactive video/audio/telecommunication technology, the visit will not be recorded without the express consent of both the provider and the patient, and that there are some limitations compared to [id number] evaluations. We elected to proceed. Problem: Knowledge Deficit Goal: Patient/patient artists' booking representative demonstrates understanding of disease process, treatment plan, medications, and discharge instructions Description: INTERVENTIONS 1. Complete learning assessment and assess knowledge base 2. Provide teaching at level of understanding 3. Provide teaching via preferred learning method(s) Outcome: Progressing Note: Evaluation of progress towards goal: POC discussed with patient. Questions answered PRN. Problem: Discharge Planning Goal: Discharge to post-acute care, other facility, or home with appropriate resources Description: Patient's goal is: INTERVENTIONS 1. Conduct assessment to determine patient/family and health care team treatment goals, and need for post-acute services based on payer coverage, community resources, and patient preferences, and barriers to discharge 2. Coordinate with Social work, Care Navigation, and Utilization Review to arrange appropriate level of services according to patient's needs based on patient preference and payer coverage in collaboration with the physician and health care team 3. Address psychosocial, clinical, and financial barriers to discharge as identified in assessment in conjunction with the patient/family and health care team 4. Consult appropriate ancillary services (i.e.. PT/OT/ST, etc) as needed 5. Communicate with and update the patient/family, physician, and health care team regarding progress on the discharge plan 6. Identify discharge learning needs (meds, wound care, etc). 7. Arrange for needed discharge transportation as appropriate Outcome: Progressing Note: Evaluation of progress towards goal: Continue to assess for when appropriate. Problem: Pain Goal: Patient goal is pain score less than 4, able to rest, and participant in treatment plan as appropriate Description: INTERVENTIONS: 1. Encourage patient or legal artists' booking representative to report early pain and ask for pain medicine when needed 2. Assess pain using appropriate pain scale and include the scale used when documenting 3. Administer analgesics based on type and severity of pain and evaluate response within appropriate time frame 4. Implement non-pharmacological measures as appropriate and evaluate response 5. Consider cultural and social influences on pain and pain management 6. Notify LIP if interventions ineffective or patient reports new pain 7. Monitor vital signs including pulse ox, end-tidal CO2 based on pain intervention 8. Reassess pain per policy 9. Teach patient or legal artists' booking representative interventions for comforting Outcome: Progressing Note: Evaluation of progress towards goal: ongoing. Problem: Safety Goal: Patient will be injury free during hospitalization Description: INTERVENTIONS: 1. Assess patient's risk for falls and implement fall prevention plan of care per policy 2. Provide and maintain a safe environment 3. Proper use of double Identifiers 4. Medication administration using the 5 rights 5. Hand hygiene 6. Specimens are labeled at the bedside 7. Instruct patient/ patient artists' booking representative about use of safety devices 8. Include patient/ patient artists' booking representative in decisions related to safety Outcome: Progressing Note: Evaluation of progress towards goal: ongoing. Problem: Knowledge Deficit Goal: Patient/patient artists' booking representative demonstrates understanding of disease process, treatment plan, medications, and discharge instructions Description: INTERVENTIONS 1. Complete learning assessment and assess knowledge base 2. Provide teaching at level of understanding 3. Provide teaching via preferred learning method(s) Outcome: Progressing Note: Evaluation of progress towards goal: ongoing. documented in this encounter [facility] 10-18-2023 Progress note Formatting of t his note might be different from the original. DISCHARGE PLANNING NOTE Danielle Montana Block Operator conducted a visit at patient bedside. Patient ws updated on transfer process. We discussed that we did find her a new physician, Shawn Zamora in [place], [place]. It is on patient's AVS for time of discharge. Patient Discharge Plan: Home with self care. New physician will be Dr. Shawn Zamora in [place], [place]. [phone]. Patient is to call at time of discharge to schedule appointments as below. Schedule a follow up appointment with new PCP for 7-10 days. Schedule a new patient appointment with new PCP as available. - Silvana Conklin RN 10/18/23 11:22 AM [employer] [employer] [facility] 10-18-2023 Hospital course Narrative Images from the original note were not included. [facility] Hospital Medicine Discharge Summary Patient: Danielle Montana Date of : 1965 Room: 214/01 Encounter date: 10/18/23 DATE OF ADMISSION: 10/14/2023 DATE OF DISCHARGE:10/18/2023 DISCHARGE DIAGNOSES Principal Problem: ERIN (acute kidney injury) ([facility]) Active Problems: Chronic obstructive pulmonary disease ([facility]) Hypertension ADORE (obstructive sleep apnea) Hypokalemia Edema of both lower extremities Mixed hyperlipidemia Abnormal fasting glucose LUTHER (iron deficiency anemia) Bipolar depression ([facility]) 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 female who presents with leg swelling, right hand swelling, chest pain, nausea, and cough. Pt describes her chest pain as burning sensation. Pt reports experiencing fatigued and tired for the past couple of weeks. Pt reports history of sleep apnea. Pt states when she tries to sleep she is startled and wakes up. Pt states her CPAP machine had broke for a few months now. Pt reports informing her doctor about her CPAP machine but they have not replaced it. Pt is allergic to Lyrica, Codeine, and Bactrim. ER Course: Labs notable for: CBC unremarkable, BMP significantly shows ERIN, with creatinine 2.56 (last creatinine was 2 years ago at 0.82) slightly elevated Troponin I at 39, and BNP elevated to 400. Imaging was independently viewed by Dr. Elliott and is notable for low lung volumes and hypoventilatory change, Central pulmonary vascular congestion without overt pulmonary edema. No sizable pleural effusion, no definite pneumothorax. While she was here she was followed by Nephrology. She was getting high-dose steroids and urine studies were completed. Is found that patient does have vasculitis and will need to be transferred for kidney biopsy per Nephrology. Patient is stable on discharge. 10/18/23, Hospital Day: 5 Interval History: Status: worsened. No overnight events or new complaints. Creatinine continues to trend upward. Review of Systems Constitutional: Negative for activity change, appetite change, fatigue and unexpected weight change. HENT: Negative for trouble swallowing. Respiratory: Negative for cough, sputum production, shortness of breath and wheezing. Cardiovascular: Negative for chest pain, palpitations and leg swelling. Gastrointestinal: Negative for abdominal pain, blood in stool, melena, constipation, diarrhea, nausea and vomiting. Genitourinary: Negative for difficulty urinating. Skin: Negative for color change and wound. Neurological: Negative for dizziness, seizures, speech difficulty and headaches. Psychiatric/Behavioral: Negative for sleep disturbance. Physical Exam BP 137/58 Pulse 67 Temp 36.6 C (97.9 F) (Oral) Resp 16 Ht 152.4 cm (5') Wt (!) 150.6 kg (332 lb 1.6 oz) SpO2 95% BMI 64.86 kg/m Intake/Output Summary (Last 24 hours) at 10/18/2023 1102 Last data filed at 10/18/2023 0940 Gross per 24 hour Intake 1180 ml Output 1900 ml Net -720 ml Constitutional: Obese General: No acute distress. Cardiovascular: Rate and Rhythm: Normal rate and regular rhythm. Heart sounds: Normal heart sounds, S1 normal and S2 normal. Pulmonary: Effort: Pulmonary effort is normal. Breath sounds: Normal breath sounds. Musculoskeletal: Right lower le+ pitting edema. Left lower le+ pitting edema. Skin: Scattered bruising. General: Skin is warm and dry. Coloration: Skin is not pale. Neurological: General: No focal deficit present. Psychiatric: Mood and Affect: Mood normal. Tearful affect secondary to son's birthday who in February. Behavior: Behavior normal. Labs Recent Results (from the past 48 hour(s)) Protein creat ratio Collection Time: 10/16/23 12:15 PM Result Value Ref Range Urine creatinine 26.92 mg/dL Protein Urine Random 1,270 (H) <120 mg/L U/Pro/Shipping Clerk Crating Ratio Calc 4.72 (H) <0.2 Microalbumin - Albumin: Creatinine Urine Ratio Collection Time: 10/16/23 12:15 PM Result Value Ref Range Microalbumin urine 88.6 (H) 0.0 - 1.9 mg/dL Urine creat 26.12 mg/dL Alb/creat ratio 3,392.0 (H) 0.0 - 30.0 mg/g creat Urinalysis Collection Time: 10/16/23 12:15 PM Result Value Ref Range Color YELLOW YELLOW^YELLOW Turbidity CLEAR CLEAR^CLEAR Specific gravity 1.015 1.003 - 1.035 Nitrite Negative Negative^Negative Ph urine 6.0 5.0 - 8.5 Leukocyte esterase Negative Negative^Negative Protein 100 (A) Negative^Negative mg/dL Glucose, Ur Negative Negative^Negative mg/dL Ketones urine Negative Negative^Negative mg/dL Urobilinogen 0.2 <1.1 eu/dL Bilirubin, urine Negative Negative^Negative Hemoglobin Large (A) Negative^Negative WBC 5 0 - 5 /hpf RBC 80 (H) 0 - 5 /hpf Squamous epithelium 2 0 - 5 /hpf Protein, urine, 24 hour Collection Time: 10/16/23 1:20 PM Result Value Ref Range Total Protein, urine, 24 hour 6,380 (H) 0 - 150 mg/24h Creatinine, urine, 24 hour Collection Time: 10/16/23 1:20 PM Result Value Ref Range Urine creatinine 1.38 0.80 - 1.80 g/24h Urine Volume and Time Collection Time: 10/16/23 1:20 PM Result Value Ref Range Time 24 h Total volume 4,400 mL D-Dimer Collection Time: 10/16/23 2:28 PM Result Value Ref Range D-dimer 499 (H) <255 ng/mL DDU Comprehensive metabolic panel Collection Time: 10/17/23 4:46 AM Result Value Ref Range Sodium 139 134 - 146 mmol/L Potassium, Bld 3.6 3.5 - 5.0 mmol/L Chloride 101 98 - 109 mmol/L CO2 28 22 - 32 mmol/L Anion gap 10 5 - 15 mmol/L BUN 26 (H) 5 - 23 mg/dL Creatinine 2.77 (H) 0.40 - 1.00 mg/dL Glucose 97 65 - 99 mg/dL Calcium 8.8 8.5 - 10.5 mg/dL Total Protein 5.7 (L) 6.0 - 8.0 g/dL Albumin 3.0 (L) 3.2 - 5.3 g/dL Alkaline Phosphatase 56 39 - 130 U/L AST 14 0 - 41 U/L ALT 10 0 - 31 U/L Total bilirubin 0.7 0.3 - 1.2 mg/dL eGFR (CKD-EPI)non-race dependent 19 (L) >59 ml/min/1.73sq.m Magnesium Collection Time: 10/17/23 4:46 AM Result Value Ref Range Magnesium 2.0 1.8 - 2.6 mg/dL CBC auto differential Collection Time: 10/17/23 4:46 AM Result Value Ref Range White Blood Cells 7.9 4.0 - 11.0 X10E9/L RBC count 3.62 (L) 3.80 - 5.20 X10E12/L Hemoglobin 10.1 (L) 11.7 - 15.5 g/dL Hematocrit 30.3 (L) 35 - 47 % MCV 84 80 - 100 fL MCH 27.9 27 - 34 pg MCHC 33.4 32 - 36 g/dL RDW 14.7 11.5 - 15.0 % Platelets 278 150 - 450 X10E9/L MPV 9.0 7 - 12 fL % neutrophils 62.1 % % lymphocytes 24.6 % % monocytes 8.3 % % eosinophils 4.3 % % Basophils 0.7 % Neutrophils Absolute (A) 4.9 1.5 - 6.6 X10E9/L Lymphocytes Absolute 1.9 1.0 - 3.5 X10E9/L Monocytes Absolute 0.6 0 - 0.9 X10E9/L Eosinophils Absolute 0.3 0.0 - 0.4 X10E9/L Basophils Absolute 0.1 0.0 - 0.2 X10E9/L Phosphorus Collection Time: 10/17/23 4:46 AM Result Value Ref Range Phosphorus 4.1 2.4 - 4.9 mg/dL Thyroid profile includes TSH FT4 Collection Time: 10/17/23 4:46 AM Result Value Ref Range TSH 2.17 0.49 - 4.67 uIU/mL T4, free 1.19 0.61 - 1.60 ng/dL POCT Ionized Calcium Collection Time: 10/17/23 5:07 AM Result Value Ref Range Portable ICA 4.7 4.5 - 5.3 mg/dL Occult blood x 1, stool Collection Time: 10/17/23 10:37 AM Result Value Ref Range Occult blood Negative Negative^Negative Potassium Collection Time: 10/17/23 12:32 PM Result Value Ref Range Potassium, Bld 4.2 3.5 - 5.0 mmol/L Comprehensive metabolic panel Collection Time: 10/18/23 5:30 AM Result Value Ref Range Sodium 137 134 - 146 mmol/L Potassium, Bld 4.2 3.5 - 5.0 mmol/L Chloride 97 (L) 98 - 109 mmol/L CO2 29 22 - 32 mmol/L Anion gap 11 5 - 15 mmol/L BUN 37 (H) 5 - 23 mg/dL Creatinine 2.98 (H) 0.40 - 1.00 mg/dL Glucose 92 65 - 99 mg/dL Calcium 9.3 8.5 - 10.5 mg/dL Total Protein 6.0 6.0 - 8.0 g/dL Albumin 3.1 (L) 3.2 - 5.3 g/dL Alkaline Phosphatase 57 39 - 130 U/L AST 14 0 - 41 U/L ALT 10 0 - 31 U/L Total bilirubin 0.7 0.3 - 1.2 mg/dL eGFR (CKD-EPI)non-race dependent 18 (L) >59 ml/min/1.73sq.m Magnesium Collection Time: 10/18/23 5:30 AM Result Value Ref Range Magnesium 2.0 1.8 - 2.6 mg/dL CBC auto differential Collection Time: 10/18/23 5:30 AM Result Value Ref Range White Blood Cells 7.8 4.0 - 11.0 X10E9/L RBC count 3.77 (L) 3.80 - 5.20 X10E12/L Hemoglobin 10.5 (L) 11.7 - 15.5 g/dL Hematocrit 31.7 (L) 35 - 47 % MCV 84 80 - 100 fL MCH 27.7 27 - 34 pg MCHC 33.1 32 - 36 g/dL RDW 15.0 11.5 - 15.0 % Platelets 328 150 - 450 X10E9/L MPV 8.9 7 - 12 fL % neutrophils 57.5 % % lymphocytes 27.3 % % monocytes 9.1 % % eosinophils 5.1 % % Basophils 1.0 % Neutrophils Absolute (A) 4.5 1.5 - 6.6 X10E9/L Lymphocytes Absolute 2.1 1.0 - 3.5 X10E9/L Monocytes Absolute 0.7 0 - 0.9 X10E9/L Eosinophils Absolute 0.4 0.0 - 0.4 X10E9/L Basophils Absolute 0.1 0.0 - 0.2 X10E9/L Phosphorus Collection Time: 10/18/23 5:30 AM Result Value Ref Range Phosphorus 5.1 (H) 2.4 - 4.9 mg/dL POCT Ionized Calcium Collection Time: 10/18/23 5:40 AM Result Value Ref Range Portable ICA 4.7 4.5 - 5.3 mg/dL Radiology Vas venous duplex lwr bilateral Result Date: 10/17/2023 Narrative: Right: Limited visualization of veins in the thigh and calf due to edema and body habitus. Remaining visualized deep venous segments are compressible with spontaneous phasic spectral Doppler waveforms. Superficial veins are compressible. Left: Limited visualization of veins in the thigh and calf due to edema and body habitus. Remaining visualized deep venous segments are compressible with spontaneous phasic spectral Doppler waveforms. Superficial veins are compressible. General: In-patient, bedside examination. Conclusions: BILATERAL: NO EVIDENCE of deep or superficial vein thrombosis of the lower extremities. NM ventiliation imaging perfusion lung scan Result Date: 10/17/2023 Narrative: Clinical history:Elevated d-dimer and shortness of breath [...] Tony Lowery MD on 10/17/2023 9:13 AM Echo complete W/O contrast Result Date: 10/16/2023 Narrative: Left Ventricle: Left ventricle appears normal in size. There is mild concentric increased wall thickness/hypertrophy. Systolic function is normal with an ejection fraction of 60-65%. Elevated LV filling pressures by tissue Doppler Right Ventricle: Systolic function is normal. Aorta: The aortic root is normal in size. Pericardium: There is no pericardial effusion. No evidence of clinically significant valve pathologies as detailed below Ultrasound retroperitoneal complete Result Date: 10/16/2023 Narrative: US RETROPERITONEAL COMPLETE: 10/16/2023 9:06 AM Indication: [...] Maksim Unger MD on 10/16/2023 9:42 AM X-ray chest 1 view Result Date: 10/14/2023 Narrative: Single view chest History: Difficulty breathing, shortness of breath Comparison: 01/01/2021 Impression: 1. Low lung volumes and hypoventilatory change, Central pulmonary vascular congestion without overt pulmonary edema. No sizable pleural effusion, no definite pneumothorax. 2. Borderline cardiomegaly. Finalized by Naren Morris MD on 10/14/2023 11:39 PM DISCHARGE ASSESSMENT & PLAN Transfer to [facility] per Nephrology DISCHARGE INSTRUCTION Disposition: [facility] Condition: Stable Activity: activity as tolerated Diet: Adult diet Regular Texture; No Added Salt (3-4 gm Sodium); Fluid Restriction 1800 mL Follow up: PCP Not In System within 7-14 days. Labs/Imaging/Pathology: Discharge Medications: Medication List ASK your doctor about these medications Instructions Last Dose Given Next Dose Due busPIRone 15 mg tablet Commonly known as: BUSPAR Take 1 tablet (15 mg total) by mouth in the morning and 1 tablet (15 mg total) before bedtime. CALCIUM ORAL Take 600 mg by mouth 2 (two) times a day. donepeziL 5 mg tablet Commonly known as: ARICEPT Take 1 tablet (5 mg total) by mouth nightly. DULoxetine 60 mg capsule Commonly known as: CYMBALTA Take 1 capsule (60 mg total) by mouth in the morning. ipratropium-albuteroL 0.5 mg-3 mg(2.5 mg base)/3 mL nebulizer Commonly known as: DUONEB Inhale 3 mL by nebulization every 4 (four) hours while awake. lisinopriL 10 mg tablet Commonly known as: PRINIVIL,ZESTRIL Take 1 tablet (10 mg total) by mouth in the morning. omeprazole 40 mg capsule Commonly known as: PriLOSEC Take 1 capsule (40 mg total) by mouth in the morning. rosuvastatin 10 mg tablet Commonly known as: CRESTOR Take 1 tablet (10 mg total) by mouth in the morning. VITAMIN D3 ORAL Take 2,000 Unit by mouth daily. >30 minutes were spent on discharging this patient. BRUCE Watts, 10/18/2023 11:02 AM [facility] 7AM-7PM (all facilities): EpicChat or page through [employer]. 7PM-7AM ([facility], [facility]): EpicChat or page, [phone]. 7PM-7AM ([place], [place], [place], [place] and [facility] Rehab): EpicChat or page through [employer]. This note is dictated with the use of M*Modal. Please note that this dictation was completed with computer voice recognition software. Quite often unanticipated grammatical, syntax, homophones, and other interpretive errors are inadvertently transcribed by the computer software. Please disregard these errors. Please excuse any errors that have escaped final proofreading. BRUCE Watts 10/18/23 1106 I have seen and evaluated the patient, and have reviewed the history above and agree. I have repeated the vázquez portions of the physical exam and concur with the DEREK findings. I have reviewed all laboratory findings and imaging reports/films. I agree with the plan as noted above. Isma hayward documented in this encounter [facility] 10-18-2023 Progress note Formatting of t his note is different from the original. Images from the original note were not included. Tele-NephrologyTelemedicine Consult Note Consent Statement: I discussed risks, benefits, and alternatives of a real-time synchronous audiovisual consultation with the patient (and any accompanying persons) including the risks that the patient's personal health details and medical records will be discussed over real-time, synchronous, interactive video/audio/telecommunication technology, the visit will not be recorded without the express consent of both the provider and the patient, and that there are some limitations compared to [id number] evaluations. We elected to proceed. Nephrology Daily Progress Note INTERVAL HISTORY/History of present illness: Over the last 24 hours patient made 4.2 L. She is -3 L over the last 24 hours. Since admission the patient is -4.8 L Patient did not sleep well last night due to frequent urination. She denies any nausea or vomiting. No chest pain Patient feels tired PROBLEM LIST: Acute kidney injury from September of 2023 likely related to chronic intake of lisinopril and NSAIDs other etiologies not to be ruled out with baseline creatinine of about 0.8 from 2020. Renal ultrasound from September of 2023 showed right kidney size was 10.1 cm left kidney size was 10.9 cm. Otherwise unremarkable renal ultrasound . Hepatitis panel is negative. HIV is negative rheumatoid factor was elevated which was 76. C3 and C4 were normal. Serum free light chain ratio is 0.9 SAUL is negative. Urine protein to creatinine ratio is 4.7 g/g. Glomerular basement membrane antibodies are pending. SPEP is pending. 24 hour urine collection for protein is pending. UPEP is pending. 24 hour urine protein was 6380 mg. SAUL is negative. SPEP is pending. Myeloperoxidase antibodies are positive which is greater than 8. Peroxidase. Proteinase 3 antibodies are negative. Rheumatoid factor is high which was 76 Hypertension Chronic Obstructive Pulmonary Disease lumen emphysema Fibromyalgia GERD Chronic back pain Cluster headaches Degenerative joint disease Cervical cancer status post total hysterectomy Toe amputation Polysubstance abuse Echocardiogram from September of 2023 showed an LV ejection fraction of 60-65% with grade 2 diastolic dysfunction. No evidence of significant valvular abnormalities. No pericardial effusion VITAL SIGNS TREND: Vitals: 10/18/23 0345 10/18/23 0514 10/18/23 0520 10/18/23 0701 BP: (!) 169/91 111/60 137/58 Pulse: 75 66 62 Resp: 16 16 Temp: 36.4 C (97.6 F) 36.6 C (97.9 F) TempSrc: Axillary Oral SpO2: 97% 96% 95% Weight: (!) 150.6 kg (332 lb 1.6 oz) Height: INTAKE/OUTPUT: Intake/Output Summary (Last 24 hours) at 10/18/2023 1000 Last data filed at 10/18/2023 0743 Gross per 24 hour Intake 1120 ml Output 2200 ml Net -1080 ml I/O this shift: In: - Out: 350 [Urine:350] WEIGHT: Wt Readings from Last 3 Encounters: 10/18/23 (!) 150.6 kg (332 lb 1.6 oz) 01/02/21 130.4 kg (287 lb 8 oz) 10/27/20 136.1 kg (300 lb) busPIRone, 15 mg, oral, BID cyanocobalamin, 1,000 mcg, oral, Daily donepeziL, 5 mg, oral, Nightly DULoxetine, 60 mg, oral, Daily ferrous sulfate, 325 mg, oral, Daily with breakfast furosemide, 80 mg, intravenous, Q8H TEDDY heparin (porcine), 5,000 Units, subcutaneous, Q8H TEDDY hydrALAZINE, 100 mg, oral, Q8H TEDDY magnesium oxide, 400 mg, oral, BID metoprolol tartrate, 25 mg, oral, BID pantoprazole, 40 mg, oral, QAM AC potassium chloride, 20 mEq, oral, TID rosuvastatin, 10 mg, oral, Daily spironolactone, 25 mg, oral, Q12H TEDDY dextrose 5 % in water, 100 mL/hr, Last Rate: Stopped (10/16/23 0712) sodium chloride 0.9 %, 20 mL/hr PHYSICAL EXAM: Blood pressure 137/58, pulse 62, temperature 36.6 C (97.9 F), temperature source Oral, resp. rate 16, height 152.4 cm (5'), weight (!) 150.6 kg (332 lb 1.6 oz), SpO2 95%, not currently . Temp: [36.4 C (97.6 F)-36.6 C (97.9 F)] 36.6 C (97.9 F) Pulse: [62-75] 62 Resp: [15-20] 16 BP: (109-173)/(47-93) 137/58 FiO2 (%): [21 %] 21 % SpO2: [91 %-98 %] 95 % O2 Device: None (Room air) O2 Flow Rate (L/min): [0 L/min] 0 L/min Exam was based on my observation as well as nursing staff assessment. General appearance obese. No acute distress. Breathing comfortably. Lying flat. Respiratory she has not in respiratory distress. No wheezing Extremity she has 1+ edema LABORATORY EVALUATION: Results from last 7 days Lab Units 10/18/23 0530 10/17/23 1232 10/17/23 0446 10/16/23 1053 10/16/23 04310/15/23 1050 10/15/23 0510/14/23 2220 SODIUM mmol/L 137 -- 139 -- 137 -- 140 139 POTASSIUM mmol/L 4.2 4.2 3.6 4.8 3.2* < > 3.2* 3.1* CHLORIDE mmol/L 97* -- 101 -- 101 -- 104 107 CO2 mmol/L 29 -- 28 -- 28 -- 26 27 BUN mg/dL 37* -- 26* -- 23 -- 20 19 CREATININE mg/dL 2.98* -- 2.77* -- 2.63* -- 2.56* 2.56* CALCIUM mg/dL 9.3 -- 8.8 -- 8.4* -- 8.4* 8.1* MAGNESIUM mg/dL 2.0 -- 2.0 -- 2.1 -- 1.7* 1.8 PHOSPHORUS mg/dL 5.1* -- 4.1 -- 4.3 -- -- -- < > = values in this interval not displayed. Results from last 7 days Lab Units 10/18/23 0530 10/17/23 0446 10/16/23 04310/15/23 0510/14/23 2220 WBC X10E9/L 7.8 7.9 8.0 10.2 9.9 HEMOGLOBIN g/dL 10.5* 10.1* 9.5* 10.0* 10.9* HEMATOCRIT % 31.7* 30.3* 28.5* 30.1* 33.2* PLATELETS X10E9/L 328 278 252 312 319 Results from last 7 days Lab Units 10/18/23 0530 10/17/23 0446 10/16/23 1320 10/16/23 0432 10/15/23 1050 10/15/23 0522 TOTAL PROTEIN g/dL 6.0 5.7* -- 5.4* 4.7* 5.6* TOTAL PROTEIN, URINE, 24 HOUR mg/24h -- -- 6,380* -- -- -- ALBUMIN g/dL 3.1* 3.0* -- 2.7* 2.5* 2.8* AST U/L 14 14 -- 13 -- 14 ALT U/L 10 10 -- 9 -- 10 Results from last 7 days Lab Units 10/15/23 1050 CK TOTAL U/L 82 No results found. 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 Anca panel is positive with myeloperoxidase antibodies greater than 8. 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 Creatinine is worsening which is expected with diuresis Hypertension blood pressure is currently under good control Volume overload due to acute on chronic preserved ejection fraction heart failure decompensation. Currently on IV Lasix achieving negative balance as desired Iron deficiency anemia with B12 deficiency: Patient is currently on IV iron as well as B12 replacement Hypokalemia on KCl and Aldactone Plan : Given the positive ANCA panel nephrotic range proteinuria and worsening kidney function kidney biopsy is indicated to establish the diagnosis of ANCA associated vasculitis. In the meantime I will go ahead and start the patient on Solu-Medrol 1 g IV daily for 3 days. Patient is currently on pantoprazole. Patient will need PJP prophylaxis however dapsone and atovaquone are not available in [facility]. Patient is allergic to Bactrim. Suggest to transfer the patient to [facility] for kidney biopsy and for further management of ANCA associated vasculitis as patient may require rituximab. Once the patient is at [facility] will start PJP prophylaxis with atovaquone 0 or dapsone. Strict Is&Os. Do not start anticoagulation or antiplatelet therapy without notify Nephrology as patient will need kidney biopsy Irving Flores M.D. [facility] Thank you for your consultation and allowing us to participate in the care of Danielle Montana and please do not hesitate to call us with any questions at: Office: [phone] Office Answering Service: [phone] Please feel free to contact me through [employer] chat during the daytime hours, if no response after 5 minutes then call the answering service. This note was created with the assistance of a speech-recognition program. Although the intention is to generate a document that actually reflects the content of the visit, no guarantees can be provided that every mistake has been identified and corrected by editing. [employer] Work Phone: 10-18-2023 Plan of care note Problem: Pain Goal: Patient goal is pain score less than 4, able to rest, and participant in treatment plan as appropriate Description: INTERVENTIONS: 1. Encourage patient or legal artists' booking representative to report early pain and ask for pain medicine when needed 2. Assess pain using appropriate pain scale and include the scale used when documenting 3. Administer analgesics based on type and severity of pain and evaluate response within appropriate time frame 4. Implement non-pharmacological measures as appropriate and evaluate response 5. Consider cultural and social influences on pain and pain management 6. Notify LIP if interventions ineffective or patient reports new pain 7. Monitor vital signs including pulse ox, end-tidal CO2 based on pain intervention 8. Reassess pain per policy 9. Teach patient or legal artists' booking representative interventions for comforting Outcome: Progressing Note: Evaluation of progress towards goal: Pain assessed and treated accordingly. Problem: Safety Goal: Patient will be injury free during hospitalization Description: INTERVENTIONS: 1. Assess patient's risk for falls and implement fall prevention plan of care per policy 2. Provide and maintain a safe environment 3. Proper use of double Identifiers 4. Medication administration using the 5 rights 5. Hand hygiene 6. Specimens are labeled at the bedside 7. Instruct patient/ patient artists' booking representative about use of safety devices 8. Include patient/ patient artists' booking representative in decisions related to safety Outcome: Progressing Note: Evaluation of progress towards goal: PT is free of falls, hourly rounding is completed, area is kept clear. Problem: Knowledge Deficit Goal: Patient/patient artists' booking representative demonstrates understanding of disease process, treatment plan, medications, and discharge instructions Description: INTERVENTIONS 1. Complete learning assessment and assess knowledge base 2. Provide teaching at level of understanding 3. Provide teaching via preferred learning method(s) Outcome: Progressing Note: Evaluation of progress towards goal: Learning assessment and knowledge base assessed, teaching provided at an understandable level as needed. [facility] 10-18-2023 Plan of care note Problem: Safety Goal: Patient will be injury free during hospitalization Description: INTERVENTIONS: 1. Assess patient's risk for falls and implement fall prevention plan of care per policy 2. Provide and maintain a safe environment 3. Proper use of double Identifiers 4. Medication administration using the 5 rights 5. Hand hygiene 6. Specimens are labeled at the bedside 7. Instruct patient/ patient artists' booking representative about use of safety devices 8. Include patient/ patient artists' booking representative in decisions related to safety Outcome: Progressing Note: Evaluation of progress towards goal: Pt oriented to own abilities. Adequate lighting, area clear of hazards. Problem: Knowledge Deficit Goal: Patient/patient artists' booking representative demonstrates understanding of disease process, treatment plan, medications, and discharge instructions Description: INTERVENTIONS 1. Complete learning assessment and assess knowledge base 2. Provide teaching at level of understanding 3. Provide teaching via preferred learning method(s) Outcome: Progressing Note: Evaluation of progress towards goal: Pt educated on treatment plan and medications. Asked appropriate questions. Problem: Urinary Incontinence Goal: Perineal skin integrity is maintained or improved Description: INTERVENTIONS 1. Assess genitourinary system, perineal skin, labs (urinalysis), and history of incontinence to include past management, aggravating, and alleviating factors 2. Keep skin clean and dry 3. Apply skin protectant 4. Develop skin care regimen 5. Provide privacy when changing patients incontinence device to maintain their dignity 6. Consider placing an indwelling catheter 7. Collaborate with interdisciplinary team and initiate plans and interventions as needed Outcome: Progressing Note: Evaluation of progress towards goal: Pt continent, shelly care done as needed Problem: Moderate - High Risk Fall Score Description: Flores Fall Score of =/> 25 or indicated by [facility] Assessment Goal: Patient should be free from fall Description: Interventions: 1. [place] to environment 2. Hourly rounds addressing the 4 P's (Pain, Positioning, Possessions, Potty) 3. Clear area of hazards (spills, clutter, electrical cords, unnecessary equipment) 4. Place equipment (bed & TV controls, call light, phone, urinal) within reach 5. Encourage patient to wear glasses and hearing aides as appropriate 6. Maintain bed in lowest position 7. Lock wheels on bed/wheelchair 8. Provide adequate lighting, including night light 9. Assess need for additional bedding, food/fluids, pain med's prior to sleep/routinely 10. Provide gripper slippers or personal non-skid footwear 11. Teach patient and patient artists' booking representative to maintain environment for safety and engage in all aspects of fall prevention program 12. Remind patient to call for help before getting out of bed 13. Initiate bed/chair/exit alarms supportive devices as appropriate, (chair wedge, no-skid floor mat, raised edge mattress, hip protectors) 14. Locate patient bed assignment for optimal visualization 15. Evaluate and identify Safe Patient Handling Equipment needs 16. Provide supervision when out of bed or chair 17. Utilize gait belt as needed to assist with ambulation 18. Place adaptive equipment (cane, walker) within reach 19. Request patient artists' booking representative bring adaptive equipment/mobility aids from home or obtain and provide as needed 20. Consult pharmacy regarding effects of med's affecting mobility, cognition, and alternatives 21. Obtain physician order for PT if risk factors associated with mobility are present 22. Obtain physician order for OT as appropriate 23. Utilize diversional activities 24. Educate patient and patient artists' booking representative how to maintain a safe environment during visitation times (notify nurse prior to leaving bedside) 25. Consider appropriateness of medical or non-medical imaging tech 26. Set up voiding schedule as appropriate (every 2 hours) Outcome: Progressing Note: Evaluation of progress towards goal: Pt oriented to own abilities. Adequate lighting, area clear of hazards. [employer] 10-17-2023 History of Present illness Narrative 24 hour urine collection labeled and walked to lab by Deepa Chinchilla Stool sample as ordered collected, ;labeled, and sent to the lab. Images from the original note were not included. [facility] [address] [facility] [id number] Hospital Medicine Progress Note Patient: Danielle Montana Date of : 1965 Room: 214/01 PCP: PCP Not In System Admission date: 10/14/2023 10:02 PM Encounter date: 10/17/23 Hospital Day: 4 SUBJECTIVE Chief complaints: Chief Complaint Patient presents with Leg Swelling Arm Swelling Nausea Cough Interval History: Status: unchanged. No overnight events or new complaints. Patient reports she is still short of breath like she has been no real change to how she feels. She reports that she does feel tired all of the time Review of Systems Constitutional: Positive for malaise/fatigue. Negative for chills, decreased appetite and diaphoresis. HENT: Negative for congestion. Cardiovascular: Positive for dyspnea on exertion and leg swelling. Negative for chest pain and palpitations. Respiratory: Negative for cough. Hematologic/Lymphatic: Bruises/bleeds easily. Musculoskeletal: Positive for arthritis and neck pain. Gastrointestinal: Negative for bloating, abdominal pain, nausea and vomiting. Neurological: Positive for paresthesias and weakness. Psychiatric/Behavioral: Negative for altered mental status. OBJECTIVE BP 109/64 Pulse 63 Temp 36.6 C (97.8 F) (Oral) Resp 18 Ht 152.4 cm (5') Wt (!) 148.3 kg (326 lb 14.4 oz) SpO2 92% BMI 63.84 kg/m Temp: [36.6 C (97.8 F)-36.8 C (98.2 F)] 36.6 C (97.8 F) Pulse: [63-87] 63 Resp: [18-20] 18 BP: (109-174)/(64-94) 109/64 SpO2: [92 %-98 %] 92 % O2 Device: None (Room air) O2 Flow Rate (L/min): [0 L/min] 0 L/min Intake/Output Summary (Last 24 hours) at 10/17/2023 1320 Last data filed at 10/17/2023 1047 Gross per 24 hour Intake 1202.31 ml Output 3400 ml Net -2197.69 ml Physical Exam Vitals (on Ra) and nursing note reviewed. Constitutional: Appearance: Normal appearance. She is obese. She is ill-appearing (chronic). HENT: Head: Normocephalic and atraumatic. Nose: Nose normal. Mouth/Throat: Mouth: Mucous membranes are moist. Eyes: Pupils: Pupils are equal, round, and reactive to light. Cardiovascular: Rate and Rhythm: Normal rate and regular rhythm. Pulses: Normal pulses. Heart sounds: Normal heart sounds. Pulmonary: Effort: Pulmonary effort is normal. No respiratory distress. Breath sounds: No wheezing or rales. Abdominal: General: Bowel sounds are normal. There is no distension. Palpations: Abdomen is soft. Tenderness: There is no abdominal tenderness. Musculoskeletal: Cervical back: Neck supple. Right lower leg: Edema (1+) present. Left lower leg: Edema (1+) present. Comments: More lymphedema versus pitting edema Skin: General: Skin is warm and dry. Capillary Refill: Capillary refill takes 2 to 3 seconds. Coloration: Skin is pale. Findings: Bruising (scattered) present. Neurological: Mental Status: She is alert and oriented to person, place, and time. Motor: Weakness (generalized) present. Psychiatric: Mood and Affect: Mood normal. Behavior: Behavior normal. Thought Content: Thought content normal. Medications Scheduled: busPIRone, 15 mg, oral, BID cyanocobalamin, 1,000 mcg, oral, Daily donepeziL, 5 mg, oral, Nightly DULoxetine, 60 mg, oral, Daily ferrous sulfate, 325 mg, oral, Daily with breakfast furosemide, 80 mg, intravenous, Q8H TEDDY heparin (porcine), 5,000 Units, subcutaneous, Q8H TEDDY hydrALAZINE, 100 mg, oral, Q8H TEDDY magnesium oxide, 400 mg, oral, BID metoprolol tartrate, 25 mg, oral, BID pantoprazole, 40 mg, oral, QAM AC potassium chloride, 20 mEq, oral, TID rosuvastatin, 10 mg, oral, Daily spironolactone, 25 mg, oral, Daily Infusions: dextrose 5 % in water, 100 mL/hr, Last Rate: Stopped (10/16/23 0712) sodium chloride 0.9 %, 20 mL/hr As Needed: acetaminophen calcium gluconate calcium gluconate calcium gluconate dextrose dextrose 5 % in water dextrose 50 % in water (D50W) glucagon (human recombinant) hydrALAZINE hydrALAZINE ipratropium-albuteroL labetaloL magnesium sulfate magnesium sulfate ondansetron ODT potassium chloride sodium phosphate IV OR sodium phosphate IV - central line OR sod phos di, mono-K phos mono sodium chloride sodium chloride sodium chloride 0.9 % Allergies: Lyrica [pregabalin], Codeine, and Bactrim [sulfamethoxazole-trimethoprim] Labs Recent Results (from the past 24 hour(s)) D-Dimer Collection Time: 10/16/23 2:28 PM Result Value Ref Range D-dimer 499 (H) <255 ng/mL DDU Comprehensive metabolic panel Collection Time: 10/17/23 4:46 AM Result Value Ref Range Sodium 139 134 - 146 mmol/L Potassium, Bld 3.6 3.5 - 5.0 mmol/L Chloride 101 98 - 109 mmol/L CO2 28 22 - 32 mmol/L Anion gap 10 5 - 15 mmol/L BUN 26 (H) 5 - 23 mg/dL Creatinine 2.77 (H) 0.40 - 1.00 mg/dL Glucose 97 65 - 99 mg/dL Calcium 8.8 8.5 - 10.5 mg/dL Total Protein 5.7 (L) 6.0 - 8.0 g/dL Albumin 3.0 (L) 3.2 - 5.3 g/dL Alkaline Phosphatase 56 39 - 130 U/L AST 14 0 - 41 U/L ALT 10 0 - 31 U/L Total bilirubin 0.7 0.3 - 1.2 mg/dL eGFR (CKD-EPI)non-race dependent 19 (L) >59 ml/min/1.73sq.m Magnesium Collection Time: 10/17/23 4:46 AM Result Value Ref Range Magnesium 2.0 1.8 - 2.6 mg/dL CBC auto differential Collection Time: 10/17/23 4:46 AM Result Value Ref Range White Blood Cells 7.9 4.0 - 11.0 X10E9/L RBC count 3.62 (L) 3.80 - 5.20 X10E12/L Hemoglobin 10.1 (L) 11.7 - 15.5 g/dL Hematocrit 30.3 (L) 35 - 47 % MCV 84 80 - 100 fL MCH 27.9 27 - 34 pg MCHC 33.4 32 - 36 g/dL RDW 14.7 11.5 - 15.0 % Platelets 278 150 - 450 X10E9/L MPV 9.0 7 - 12 fL % neutrophils 62.1 % % lymphocytes 24.6 % % monocytes 8.3 % % eosinophils 4.3 % % Basophils 0.7 % Neutrophils Absolute (A) 4.9 1.5 - 6.6 X10E9/L Lymphocytes Absolute 1.9 1.0 - 3.5 X10E9/L Monocytes Absolute 0.6 0 - 0.9 X10E9/L Eosinophils Absolute 0.3 0.0 - 0.4 X10E9/L Basophils Absolute 0.1 0.0 - 0.2 X10E9/L Phosphorus Collection Time: 10/17/23 4:46 AM Result Value Ref Range Phosphorus 4.1 2.4 - 4.9 mg/dL Thyroid profile includes TSH FT4 Collection Time: 10/17/23 4:46 AM Result Value Ref Range TSH 2.17 0.49 - 4.67 uIU/mL T4, free 1.19 0.61 - 1.60 ng/dL POCT Ionized Calcium Collection Time: 10/17/23 5:07 AM Result Value Ref Range Portable ICA 4.7 4.5 - 5.3 mg/dL Occult blood x 1, stool Collection Time: 10/17/23 10:37 AM Result Value Ref Range Occult blood Negative Negative^Negative Potassium Collection Time: 10/17/23 12:32 PM Result Value Ref Range Potassium, Bld 4.2 3.5 - 5.0 mmol/L Radiology Vas venous duplex lwr bilateral Result Date: 10/16/2023 Narrative: Right: Limited visualization of veins in the thigh and calf due to edema and body habitus. Remaining visualized deep venous segments are compressible with spontaneous phasic spectral Doppler waveforms. Superficial veins are compressible. Left: Limited visualization of veins in the thigh and calf due to edema and body habitus. Remaining visualized deep venous segments are compressible with spontaneous phasic spectral Doppler waveforms. Superficial veins are compressible. General: In-patient, bedside examination. Echo complete W/O contrast Result Date: 10/16/2023 Narrative: Left Ventricle: Left ventricle appears normal in size. There is mild concentric increased wall thickness/hypertrophy. Systolic function is normal with an ejection fraction of 60-65%. Elevated LV filling pressures by tissue Doppler Right Ventricle: Systolic function is normal. Aorta: The aortic root is normal in size. Pericardium: There is no pericardial effusion. No evidence of clinically significant valve pathologies as detailed below Ultrasound retroperitoneal complete Result Date: 10/16/2023 Narrative: US RETROPERITONEAL COMPLETE: 10/16/2023 9:06 AM Indication: [...] Maksim Unger MD on 10/16/2023 9:42 AM X-ray chest 1 view Result Date: 10/14/2023 Narrative: Single view chest History: Difficulty breathing, shortness of breath Comparison: 01/01/2021 Impression: 1. Low lung volumes and hypoventilatory change, Central pulmonary vascular congestion without overt pulmonary edema. No sizable pleural effusion, no definite pneumothorax. 2. Borderline cardiomegaly. 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 -down 4.8l since admit - Nephrology consult. -negative balance of 4.6L - Monitor kidney function daily -today's creatinine 2.677 BUN 26 GFR 19 follow nephrology's lead baseline in 2020 normal -check u/s kidneys: Urinary bladder is underdistended for incompletely evaluated with ureteral jets not seen. Otherwise unremarkable renal ultrasound with measurements as above. Edema both lower extremities over last two months - Monitor daily weight and I&O. -negative 4.6L no daily weight done -Echocardiogram ordered mild LVH EF 60-65% - Nephrology consult help with diuresis/fluid balance. -lasix 80mg IV every 8 hours per nephrology -ECHO mild LVH EF 60-65% -lower leg dopplers prelim negative -TSH checked normal -add aldactone per nephrology Elevated d-dimer -VQ scan low probability -lower leg dopplers prelim negative Hypokalemia -Supplement today is 3.6 -court recording monitor -Monitor electrolytes daily replace per protocol. -continue with routine supplements COPD No acute exacerbation - Continue home inhalers and nebulizers. Obstructive sleep apnea - Noncompliant at home due to broken machine. Unable to get replace. Will order hospital machine while inpatient . Hypertension - Elevated on admission. - Two doses labetalol in the emergency department. Hold home lisinopril due to kidney function. - Continue hydralazine IV as needed blood pressures greater than 150. -Mild LVH add beta george lopressor BID 17-0's systolic today -nephrology increased hydralazine -BP 109/64 HR 63 Hyperlipidemia - Continue home statin. Anemia likely to kidney disease LUTHER -iron levels low 30, ferritin 45 iron sat 14, folate 10.3 and tibc 218 -Check occult -continue with po iron daily -Monitor H&H today is 10.1/30.3 -24/hour urine -discussed kidney biopsy outpatient B12 deficiency -supplement Elevated fasting glucose -A1C 5.5 Bipolar -continue home buspar, Cymbalta Early onset Alzheimer's dementia -continue with Aricept DC planning: CC-A will follow nephrology's plan likely discharge tomorrow pending nephrology's input. BRUCE Maria 10/17/2023 1:20 PM [facility] 7AM-7PM (all facilities): EpicChat or page through Vocera. 7PM-7AM ([facility], [facility] and [facility]patient Rehab): EpicChat or page, [phone]. 7PM-7AM ([facility], [facility] and [facility] Rehab): EpicChat or page through Vocera. BRUCE Maria 10/17/23 1320 I have seen and evaluated the patient, and have reviewed the history above and agree. I have repeated the vázquez portions of the physical exam and concur with the DEREK findings. I have reviewed all laboratory findings and imaging reports/films. I agree with the plan as noted above Dr Elva Man MD, MRCP 10/17/2023 3:38 PM Images from the original note were not included. [facility] INTERNAL MEDICINE [facility] [address] [place] [id number] Hospital Medicine Progress Note Patient: Danielle Montana Date of : 1965 Room: [facility] PCP: PCP Not In System Admission date: 10/14/2023 10:02 PM Encounter date: 10/16/23 Hospital Day: 3 SUBJECTIVE Chief complaints: Chief Complaint Patient presents with Leg Swelling Arm Swelling Nausea Cough Interval History: Status: unchanged. No overnight events or new complaints, reports main complaint is not sleeping well because they were messing around with mask and it was so busy/loud/noisy. Patient denies any chest pain/pressure reports biggest complaint is tender legs. Review of Systems Constitutional: Positive for malaise/fatigue (exhausted feeling). Negative for chills, decreased appetite and fever. HENT: Negative for congestion, hoarse voice and sore throat. Cardiovascular: Positive for dyspnea on exertion (normal for her she said). Negative for chest pain and palpitations. Respiratory: Positive for snoring. Negative for cough and sputum production. Hematologic/Lymphatic: Bruises/bleeds easily. Musculoskeletal: Positive for arthritis (all over). Gastrointestinal: Negative for bloating, abdominal pain, heartburn, nausea and vomiting. Genitourinary: Negative for bladder incontinence. Neurological: Positive for headaches and weakness. Negative for dizziness and light-headedness. Vascular: Negative for lower extremity wounds or ulcers. OBJECTIVE BP 168/79 Pulse 85 Temp 36.8 C (98.2 F) (Oral) Resp 14 Ht 152.4 cm (5') Wt (!) 151.3 kg (333 lb 8 oz) SpO2 96% BMI 65.13 kg/m Temp: [36.4 C (97.5 F)-36.8 C (98.2 F)] 36.8 C (98.2 F) Pulse: [64-85] 85 Resp: [14-18] 14 BP: (136-168)/(62-79) 168/79 SpO2: [92 %-98 %] 96 % O2 Device: None (Room air) O2 Flow Rate (L/min): [0 L/min] 0 L/min Intake/Output Summary (Last 24 hours) at 10/16/2023 0756 Last data filed at 10/16/2023 0619 Gross per 24 hour Intake 2612.13 ml Output 4300 ml Net -1687.87 ml Physical Exam Vitals (on RA did not tolerate pap due to noise) and nursing note reviewed. Constitutional: Appearance: She is obese. She is ill-appearing (chronic). HENT: Head: Normocephalic and atraumatic. Nose: Nose normal. Mouth/Throat: Mouth: Mucous membranes are moist. Eyes: Pupils: Pupils are equal, round, and reactive to light. Cardiovascular: Rate and Rhythm: Normal rate and regular rhythm. Pulses: Normal pulses. Heart sounds: Normal heart sounds. Comments: SR HR 70 Pulmonary: Effort: Pulmonary effort is normal. No respiratory distress. Breath sounds: No wheezing or rales. Abdominal: General: Bowel sounds are normal. There is no distension. Palpations: Abdomen is soft. Tenderness: There is no abdominal tenderness. Genitourinary: Comments: [place] yellow urine Musculoskeletal: Cervical back: Normal range of motion and neck supple. Right lower leg: Edema (1+) present. Left lower leg: Edema (1+) present. Comments: Lymphedema BLE, 1+ pitting. Skin: General: Skin is warm and dry. Capillary Refill: Capillary refill takes 2 to 3 seconds. Neurological: Mental Status: She is alert and oriented to person, place, and time. Motor: Weakness (generalized) present. Psychiatric: Mood and Affect: Mood normal. Behavior: Behavior normal. Thought Content: Thought content normal. Judgment: Judgment normal. Medications Scheduled: busPIRone, 15 mg, oral, BID donepeziL, 5 mg, oral, Nightly DULoxetine, 60 mg, oral, Daily ferrous sulfate, 325 mg, oral, Daily with breakfast furosemide, 60 mg, intravenous, Q8H TEDDY heparin (porcine), 5,000 Units, subcutaneous, Q8H TEDDY hydrALAZINE, 50 mg, oral, Q8H TEDDY magnesium oxide, 400 mg, oral, BID pantoprazole, 40 mg, oral, QAM AC potassium chloride, 20 mEq, oral, TID rosuvastatin, 10 mg, oral, Daily Infusions: dextrose 5 % in water, 100 mL/hr, Last Rate: Stopped (10/16/23 0712) sodium chloride 0.9 %, 20 mL/hr As Needed: acetaminophen calcium gluconate calcium gluconate calcium gluconate dextrose dextrose 5 % in water dextrose 50 % in water (D50W) glucagon (human recombinant) hydrALAZINE hydrALAZINE ipratropium-albuteroL labetaloL magnesium sulfate magnesium sulfate ondansetron ODT potassium chloride sodium phosphate IV OR sodium phosphate IV - central line OR sod phos di, mono-K phos mono sodium chloride sodium chloride sodium chloride 0.9 % Allergies: Lyrica [pregabalin], Codeine, and Bactrim [sulfamethoxazole-trimethoprim] Labs Recent Results (from the past 24 hour(s)) Potassium Collection Time: 10/15/23 10:50 AM Result Value Ref Range Potassium, Bld 3.5 3.5 - 5.0 mmol/L Protein electrophoresis, serum Collection Time: 10/15/23 10:50 AM Result Value Ref Range Total Protein 4.7 (L) 6.0 - 8.0 g/dL Albumin PENDING 3.4 - 5.3 g/dL Alpha 1 PENDING 0.1 - 0.4 g/dL Alpha 2 PENDING 0.4 - 1.1 g/dL Beta PENDING 0.5 - 1.2 g/dL Gamma Globulin PENDING 0.5 - 1.6 g/dL Prot. electrophoresis interp PENDING Complement profile (C3 AND C4) Collection Time: 10/15/23 10:50 AM Result Value Ref Range C3 Complement 113 86 - 184 mg/dL C4 Complement 36 16 - 47 mg/dL Hepatitis C(HCV) Ab w/ Reflex to PCR Collection Time: 10/15/23 10:50 AM Result Value Ref Range Anti HCV w/ PCR reflex Non-Reactive Non-Reactive^Non-Reactive Hepatitis B Surface Antibody Quantitation Collection Time: 10/15/23 10:50 AM Result Value Ref Range Anti HBs quantitative <8.00 mIU/mL Hepatitis B surface antigen Collection Time: 10/15/23 10:50 AM Result Value Ref Range Hepatitis B Surface Ag Negative Negative^Negative HIV 1&2 AB/AG Screen (P24 AG) Collection Time: 10/15/23 10:50 AM Result Value Ref Range HIV 1&2 AB/AG Non-Reactive Non-Reactive^Non-Reactive Rheumatoid factor Collection Time: 10/15/23 10:50 AM Result Value Ref Range Rheumatoid factor 76 (H) <20 IU/mL CK Total Collection Time: 10/15/23 10:50 AM Result Value Ref Range Total CK 82 24 - 170 U/L Vitamin B12 Collection Time: 10/15/23 10:50 AM Result Value Ref Range Vitamin B-12 159 (L) 180 - 914 pg/mL Iron and TIBC Collection Time: 10/15/23 10:50 AM Result Value Ref Range Iron 30 (L) 50 - 170 ug/dL Tibc-calc only do not order 218 (L) 250 - 425 ug/dL Iron Saturation 14 (L) 15 - 50 % SATURATION Ferritin Collection Time: 10/15/23 10:50 AM Result Value Ref Range Ferritin 45 11 - 307 ng/mL Folate Collection Time: 10/15/23 10:50 AM Result Value Ref Range Folate 10.3 >5.8 ng/mL Urinalysis Collection Time: 10/15/23 11:17 AM Result Value Ref Range Color YELLOW YELLOW^YELLOW Turbidity CLEAR CLEAR^CLEAR Specific gravity 1.025 1.003 - 1.035 Nitrite Negative Negative^Negative Ph urine 6.0 5.0 - 8.5 Leukocyte esterase Negative Negative^Negative Protein >300 (A) Negative^Negative mg/dL Glucose, Ur Negative Negative^Negative mg/dL Ketones urine Negative Negative^Negative mg/dL Urobilinogen 0.2 <1.1 eu/dL Bilirubin, urine Negative Negative^Negative Hemoglobin Large (A) Negative^Negative WBC 10 (H) 0 - 5 /hpf RBC 30 (H) 0 - 5 /hpf Squamous epithelium 6 (H) 0 - 5 /hpf Sodium, urine, random Collection Time: 10/15/23 12:17 PM Result Value Ref Range Sodium Urine Random 86 mmol/L Urine Creatinine,random Collection Time: 10/15/23 12:17 PM Result Value Ref Range Urine creatinine 102.61 mg/dL Comprehensive metabolic panel Collection Time: 10/16/23 4:32 AM Result Value Ref Range Sodium 137 134 - 146 mmol/L Potassium, Bld 3.2 (L) 3.5 - 5.0 mmol/L Chloride 101 98 - 109 mmol/L CO2 28 22 - 32 mmol/L Anion gap 8 5 - 15 mmol/L BUN 23 5 - 23 mg/dL Creatinine 2.63 (H) 0.40 - 1.00 mg/dL Glucose 107 (H) 65 - 99 mg/dL Calcium 8.4 (L) 8.5 - 10.5 mg/dL Total Protein 5.4 (L) 6.0 - 8.0 g/dL Albumin 2.7 (L) 3.2 - 5.3 g/dL Alkaline Phosphatase 55 39 - 130 U/L AST 13 0 - 41 U/L ALT 9 0 - 31 U/L Total bilirubin 0.4 0.3 - 1.2 mg/dL eGFR (CKD-EPI)non-race dependent 20 (L) >59 ml/min/1.73sq.m Magnesium Collection Time: 10/16/23 4:32 AM Result Value Ref Range Magnesium 2.1 1.8 - 2.6 mg/dL CBC auto differential Collection Time: 10/16/23 4:32 AM Result Value Ref Range White Blood Cells 8.0 4.0 - 11.0 X10E9/L RBC count 3.45 (L) 3.80 - 5.20 X10E12/L Hemoglobin 9.5 (L) 11.7 - 15.5 g/dL Hematocrit 28.5 (L) 35 - 47 % MCV 83 80 - 100 fL MCH 27.7 27 - 34 pg MCHC 33.6 32 - 36 g/dL RDW 14.8 11.5 - 15.0 % Platelets 252 150 - 450 X10E9/L MPV 8.9 7 - 12 fL % neutrophils 60.4 % % lymphocytes 26.6 % % monocytes 8.2 % % eosinophils 4.2 % % Basophils 0.6 % Neutrophils Absolute (A) 4.9 1.5 - 6.6 X10E9/L Lymphocytes Absolute 2.1 1.0 - 3.5 X10E9/L Monocytes Absolute 0.7 0 - 0.9 X10E9/L Eosinophils Absolute 0.3 0.0 - 0.4 X10E9/L Basophils Absolute 0.0 0.0 - 0.2 X10E9/L Phosphorus Collection Time: 10/16/23 4:32 AM Result Value Ref Range Phosphorus 4.3 2.4 - 4.9 mg/dL POCT Ionized Calcium Collection Time: 10/16/23 4:51 AM Result Value Ref Range Portable ICA 4.6 4.5 - 5.3 mg/dL Radiology X-ray chest 1 view Result Date: 10/14/2023 Narrative: Single view chest History: Difficulty breathing, shortness of breath Comparison: 01/01/2021 Impression: 1. Low lung volumes and hypoventilatory change, Central pulmonary vascular congestion without overt pulmonary edema. No sizable pleural effusion, no definite pneumothorax. 2. Borderline cardiomegaly. 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 -negative balance of 1.6L - Monitor kidney function daily. -today's creatinine 2.63 BUN 23 GFR 20 follow nephrology's lead baseline in 2020 normal -check u/s kidneys today Edema both lower extremities - Monitor daily weight and I&O. -negative 1.6L no daily weight done -Echocardiogram ordered. - Nephrology consult help with diuresis/fluid balance. -lasix 60mg IV every 8 hours per nephrology -check ECHO -check lower leg dopplers Hypokalemia -Supplement today is 3.2 -court recording monitor -Monitor electrolytes daily replace per protocol. -continue with routine supplements COPD No acute exacerbation - Continue home inhalers and nebulizers. Obstructive sleep apnea - Noncompliant at home due to broken machine. Unable to get replace. Will order hospital machine while inpatient . Hypertension - Elevated on admission. - Two doses labetalol in the emergency department. Hold home lisinopril due to kidney function. - Continue hydralazine IV as needed blood pressures greater than 150. Hyperlipidemia - Continue home statin. Anemia likely to kidney disease LUTHER -iron levels low 30, ferritin 45 iron sat 14, folate 10.3 and tibc 218 -Check occult -add po iron daily -Monitor H&H today is 9.5/28.5 Elevated fasting glucose -check A1C Bipolar -continue home Delaney morrow Early onset Alzheimer's dementia -continue with Aricept DC planning: CC-A will need at least another day of diuresis. Nataliia Cohen APRN-TELLY 10/16/2023 7:56 AM [facility] 7AM-7PM (all facilities): [place] or page through [employer]. 7PM-7AM ([facility], [facility] and [facility]patient Re[facility]): EpicBrayan or simon, [phone]. 7PM-7AM ([place], [place], [place], [place] and [facility] Rehab): EpicChat or page through [employer]. BRUCE Maria 10/16/23 7293 I have seen and evaluated the patient, and have reviewed the history above and agree. I have repeated the vázquez portions of the physical exam and concur with the DEREK findings. I have reviewed all laboratory findings and imaging reports/films. I agree with the plan as noted above SOB and leg edema for 2-3 months Add D dimer, if positive will get VQ scan Dr Elva Man MD, MRCP 10/16/2023 1:58 PM documented in this encounter [facility] 10-17-2023 Hospital Discharge instructions Geetha Lizz - 10/17/2023 11:47 AM EDT YOUR SCHEDULED APPOINTMENTS Please make note of this in your schedule as to not miss or call to reschedule. Thank you! Please call office to schedule a NEW patient appointment with Dr. Shawn Zamora MD Address: [address] [place], [place] [id number] Pt. should bring the following to appointment; Discharge paperwork Picture ID, Insurance card, co-pay, and all current medications in their bottles. Please provide a 24 hour notice for cancellation. Failure to do so will result in the practice declining to see pt. in the future. If you have insurance copay you must bring with you to the appointment. Please arrive about 15 minutes prior to appointment for check-in/registration. For NEW PATIENT APPOINTMENTS, please arrive 30 minutes early to complete new patient paperwork. For NEW patients, MD will not prescribe lotteries agent pain medication. documented in this encounter [facility] 10-17-2023 Progress note Formatting of t his note is different from the original. Images from the original note were not included. Tele-NephrologyTelemedicine Consult Note Consent Statement: I discussed risks, benefits, and alternatives of a real-time synchronous audiovisual consultation with the patient (and any accompanying persons) including the risks that the patient's personal health details and medical records will be discussed over real-time, synchronous, interactive video/audio/telecommunication technology, the visit will not be recorded without the express consent of both the provider and the patient, and that there are some limitations compared to [id number] evaluations. We elected to proceed. Nephrology Daily Progress Note INTERVAL HISTORY/History of present illness: Over the last 24 hours patient made 4.2 L. She is -3 L over the last 24 hours. Since admission the patient is -4.8 L Patient did not sleep well last night due to frequent urination. She denies any nausea or vomiting. No chest pain PROBLEM LIST: Acute kidney injury from September of 2023 likely related to chronic intake of lisinopril and NSAIDs other etiologies not to be ruled out with baseline creatinine of about 0.8 from 2020. Renal ultrasound from September of 2023 showed right kidney size was 10.1 cm left kidney size was 10.9 cm. Otherwise unremarkable renal ultrasound . Hepatitis panel is negative. HIV is negative rheumatoid factor was elevated which was 76. C3 and C4 were normal. Serum free light chain ratio is 0.9 SAUL is negative. Urine protein to creatinine ratio is 4.7 g/g. SAUL is pending. Fnoa-[id number] DNA is pending. Anca is pending. Glomerular basement membrane antibodies are pending. SPEP is pending. 24 hour urine collection for protein is pending. UPEP is pending. Hypertension Chronic Obstructive Pulmonary Disease lumen emphysema Fibromyalgia GERD Chronic back pain Cluster headaches Degenerative joint disease Cervical cancer status post total hysterectomy Toe amputation Polysubstance abuse Echocardiogram from September of 2023 showed an LV ejection fraction of 60-65% with grade 2 diastolic dysfunction. No evidence of significant valvular abnormalities. No pericardial effusion VITAL SIGNS TREND: Vitals: 10/17/23 0328 10/17/23 0632 10/17/23 0649 10/17/23 0829 BP: 173/71 173/71 141/72 Pulse: 73 75 Resp: 18 20 Temp: 36.6 C (97.9 F) 36.7 C (98.1 F) TempSrc: Oral Oral SpO2: 95% 94% Weight: (!) 151.3 kg (333 lb 8 oz) (!) 148.3 kg (326 lb 14.4 oz) Height: INTAKE/OUTPUT: Intake/Output Summary (Last 24 hours) at 10/17/2023 1027 Last data filed at 10/17/2023 0957 Gross per 24 hour Intake 902.31 ml Output 3450 ml Net -2547.69 ml I/O this shift: In: 240 [P.O.:240] Out: 300 [Urine:300] WEIGHT: Wt Readings from Last 3 Encounters: 10/17/23 (!) 148.3 kg (326 lb 14.4 oz) 01/02/21 130.4 kg (287 lb 8 oz) 10/27/20 136.1 kg (300 lb) busPIRone, 15 mg, oral, BID cyanocobalamin, 1,000 mcg, oral, Daily donepeziL, 5 mg, oral, Nightly DULoxetine, 60 mg, oral, Daily ferrous sulfate, 325 mg, oral, Daily with breakfast furosemide, 80 mg, intravenous, Q8H TEDDY heparin (porcine), 5,000 Units, subcutaneous, Q8H TEDDY hydrALAZINE, 100 mg, oral, Q8H TEDDY magnesium oxide, 400 mg, oral, BID metoprolol tartrate, 25 mg, oral, BID pantoprazole, 40 mg, oral, QAM AC potassium chloride, 20 mEq, oral, TID rosuvastatin, 10 mg, oral, Daily spironolactone, 25 mg, oral, Daily dextrose 5 % in water, 100 mL/hr, Last Rate: Stopped (10/16/23 0712) sodium chloride 0.9 %, 20 mL/hr PHYSICAL EXAM: Blood pressure 141/72, pulse 75, temperature 36.7 C (98.1 F), temperature source Oral, resp. rate 20, height 152.4 cm (5'), weight (!) 148.3 kg (326 lb 14.4 oz), SpO2 94%, not currently . Temp: [36.6 C (97.9 F)-36.8 C (98.2 F)] 36.7 C (98.1 F) Pulse: [67-87] 75 Resp: [18-20] 20 BP: (141-174)/(67-117) 141/72 SpO2: [93 %-98 %] 94 % O2 Device: None (Room air) O2 Flow Rate (L/min): [0 L/min] 0 L/min Exam was based on my observation as well as nursing staff assessment. General appearance obese. No acute distress. Breathing comfortably. Lying flat. Respiratory she has not in respiratory distress. No wheezing Extremity she has 2+ edema LABORATORY EVALUATION: Results from last 7 days Lab Units 10/17/23 0446 10/16/23 1053 10/16/23 0432 10/15/23 1050 10/15/23 0522 10/14/23 2220 SODIUM mmol/L 139 -- 137 -- 140 139 POTASSIUM mmol/L 3.6 4.8 3.2* 3.5 3.2* 3.1* CHLORIDE mmol/L 101 -- 101 -- 104 107 CO2 mmol/L 28 -- 28 -- 26 27 BUN mg/dL 26* -- 23 -- 20 19 CREATININE mg/dL 2.77* -- 2.63* -- 2.56* 2.56* CALCIUM mg/dL 8.8 -- 8.4* -- 8.4* 8.1* MAGNESIUM mg/dL 2.0 -- 2.1 -- 1.7* 1.8 PHOSPHORUS mg/dL 4.1 -- 4.3 -- -- -- Results from last 7 days Lab Units 10/17/23 0446 10/16/23 0432 10/15/23 0522 10/14/23 2220 WBC X10E9/L 7.9 8.0 10.2 9.9 HEMOGLOBIN g/dL 10.1* 9.5* 10.0* 10.9* HEMATOCRIT % 30.3* 28.5* 30.1* 33.2* PLATELETS X10E9/L 278 252 312 319 Results from last 7 days Lab Units 10/17/23 0446 10/16/23 0432 10/15/23 1050 10/15/23 0522 TOTAL PROTEIN g/dL 5.7* 5.4* 4.7* 5.6* ALBUMIN g/dL 3.0* 2.7* 2.5* 2.8* AST U/L 14 13 -- 14 ALT U/L 10 9 -- 10 Results from last 7 days Lab Units 10/15/23 1050 CK TOTAL U/L 82 NM ventiliation imaging perfusion lung scan Result Date: 10/17/2023 Clinical history:Elevated d-dimer and shortness of breath [...] Tony Lowery MD on 10/17/2023 9:13 AM Vas venous duplex lwr bilateral Result Date: 10/16/2023 Right: Limited visualization of veins in the thigh and calf due to edema and body habitus. Remaining visualized deep venous segments are compressible with spontaneous phasic spectral Doppler waveforms. Superficial veins are compressible. Left: Limited visualization of veins in the thigh and calf due to edema and body habitus. Remaining visualized deep venous segments are compressible with spontaneous phasic spectral Doppler waveforms. Superficial veins are compressible. General: In-patient, bedside examination. Echo complete W/O contrast Result Date: 10/16/2023 Left Ventricle: Left ventricle appears normal in size. There is mild concentric increased wall thickness/hypertrophy. Systolic function is normal with an ejection fraction of 60-65%. Elevated LV filling pressures by tissue Doppler Right Ventricle: Systolic function is normal. Aorta: The aortic root is normal in size. Pericardium: There is no pericardial effusion. No evidence of clinically significant valve pathologies as detailed below IMPRESSION: Acute kidney injury of uncertain etiology. This is likely due to chronic NSAIDs use or could be due to cardiorenal syndrome Hypertension blood pressure is on the high side Volume overload due to acute on chronic preserved ejection fraction heart failure decompensation. Currently on IV Lasix achieving negative balance as desired Iron deficiency anemia with B12 deficiency: Patient is currently on IV iron as well as B12 replacement Hypokalemia on KCl and Aldactone Plan : Increase Aldactone Continue with IV Lasix. Replace electrolytes per scale. No indication for renal replacement therapy this point. Follow-up rest of serology workup Irving Flores M.D. [facility] Thank you for your consultation and allowing us to participate in the care of Danielle Montana and please do not hesitate to call us with any questions at: Office: [phone] Office Answering Service: [phone] Please feel free to contact me through [employer] chat during the daytime hours, if no response after 5 minutes then call the answering service. This note was created with the assistance of a speech-recognition program. Although the intention is to generate a document that actually reflects the content of the visit, no guarantees can be provided that every mistake has been identified and corrected by editing. [facility] [employer] [facility] 10-17-2023 Plan of care note Problem: Pain Goal: Patient goal is pain score less than 4, able to rest, and participant in treatment plan as appropriate Description: INTERVENTIONS: 1. Encourage patient or legal artists' booking representative to report early pain and ask for pain medicine when needed 2. Assess pain using appropriate pain scale and include the scale used when documenting 3. Administer analgesics based on type and severity of pain and evaluate response within appropriate time frame 4. Implement non-pharmacological measures as appropriate and evaluate response 5. Consider cultural and social influences on pain and pain management 6. Notify LIP if interventions ineffective or patient reports new pain 7. Monitor vital signs including pulse ox, end-tidal CO2 based on pain intervention 8. Reassess pain per policy 9. Teach patient or legal artists' booking representative interventions for comforting Outcome: Progressing Note: Evaluation of progress towards goal: Patient agrees to notify the nurse with any sudden change / increase in pain. Problem: Safety Goal: Patient will be injury free during hospitalization Description: INTERVENTIONS: 1. Assess patient's risk for falls and implement fall prevention plan of care per policy 2. Provide and maintain a safe environment 3. Proper use of double Identifiers 4. Medication administration using the 5 rights 5. Hand hygiene 6. Specimens are labeled at the bedside 7. Instruct patient/ patient artists' booking representative about use of safety devices 8. Include patient/ patient artists' booking representative in decisions related to safety Outcome: Progressing Note: Evaluation of progress towards goal: Patient will remain safe and free from injury. Problem: Low Risk Fall Score Description: Flores Fall Score of 0 - 24 or indicated by [facility] Assessment Goal: Patient should be free from fall Description: Interventions: 1. [place] to environment 2. Hourly rounds addressing the 4 P's (Pain, Positioning, Possessions, Potty) 3. Clear area of hazards (spills, clutter, electrical cords, unnecessary equipment) 4. Place equipment (bed & TV controls, call light, phone, urinal) within reach 5. Encourage patient to wear glasses and hearing aides as appropriate 6. Maintain bed in lowest position 7. Lock wheels on bed/wheelchair 8. Provide adequate lighting, including night light 9. Assess need for additional bedding, food/fluids, pain med's prior to sleep/routinely 10. Provide gripper slippers or personal non-skid footwear 11. Teach patient and patient artists' booking representative to maintain environment for safety and engage in all aspects of fall prevention program Outcome: Progressing Note: Evaluation of progress towards goal: Patient will remain free from falls. [facility] 10-17-2023 Plan of care note Problem: Safety Goal: Patient will be injury free during hospitalization Description: INTERVENTIONS: 1. Assess patient's risk for falls and implement fall prevention plan of care per policy 2. Provide and maintain a safe environment 3. Proper use of double Identifiers 4. Medication administration using the 5 rights 5. Hand hygiene 6. Specimens are labeled at the bedside 7. Instruct patient/ patient artists' booking representative about use of safety devices 8. Include patient/ patient artists' booking representative in decisions related to safety Outcome: Progressing Note: Evaluation of progress towards goal: Pt remains free from falls or accidental injury during stay. Fall prevention measures in place. Hourly rounding per RN and NA maintained. Problem: Potential for Compromised Skin Integrity Goal: Skin integrity is maintained or improved Description: Patient's goal is: INTERVENTIONS 1. Perform initial skin assessment on admission and as needed 2. Turn patient every 2 hours and PRN 3. Relieve pressure to bony prominences 4. Avoid shearing 5. Keep skin clean and dry 6. Alternate a full bath with partial baths for elderly 7. Apply lotion/moisturizer on skin 8. Monitor patient's hygiene practices 9. Float heels 10. Collaborate with interdisciplinary team and initiate plans and interventions as needed Outcome: Progressing Note: Evaluation of progress towards goal: Will assess patient ability to turn self. Will assist in reposition when needed. [facility] 10-16-2023 Plan of care note Problem: Pain Goal: Patient goal is pain score less than 4, able to rest, and participant in treatment plan as appropriate Description: INTERVENTIONS: 1. Encourage patient or legal artists' booking representative to report early pain and ask for pain medicine when needed 2. Assess pain using appropriate pain scale and include the scale used when documenting 3. Administer analgesics based on type and severity of pain and evaluate response within appropriate time frame 4. Implement non-pharmacological measures as appropriate and evaluate response 5. Consider cultural and social influences on pain and pain management 6. Notify LIP if interventions ineffective or patient reports new pain 7. Monitor vital signs including pulse ox, end-tidal CO2 based on pain intervention 8. Reassess pain per policy 9. Teach patient or legal artists' booking representative interventions for comforting Outcome: Progressing Note: Evaluation of progress towards goal: Pt able to report pain according to 0/10 pain scale. Medicating patient for pain per orders. Problem: Safety Goal: Patient will be injury free during hospitalization Description: INTERVENTIONS: 1. Assess patient's risk for falls and implement fall prevention plan of care per policy 2. Provide and maintain a safe environment 3. Proper use of double Identifiers 4. Medication administration using the 5 rights 5. Hand hygiene 6. Specimens are labeled at the bedside 7. Instruct patient/ patient artists' booking representative about use of safety devices 8. Include patient/ patient artists' booking representative in decisions related to safety Outcome: Progressing Note: Evaluation of progress towards goal: Pt's risk for falls assessed and fall prevention implemented as needed, safe environment provided and maintained, hand hygiene completed. Problem: Infection Goal: Absence of infection during hospitalization Description: Interventions: 1. Assess and monitor for signs and symptoms of infection 2. Monitor lab/diagnostic results 3. Monitor all insertion sites i.e., indwelling lines, tubes and drains 4. Monitor endotracheal (as able) and nasal secretions for changes in amount and color 5. Administer medications as ordered 6. Instruct and encourage patient and family to use good hand hygiene technique 7. Identify and instruct patient/patient artists' booking representative in use of appropriate isolation precautions for identified infection/symptoms 8. Provide and discuss with patient/patient artists' booking representative on educational MDRO sheet 9. Encourage and monitor nutritional status daily and consult developer programmer if indicated 10. Implement neutropenic guidelines as needed 11. Review exposure to history of communicable disease and recent travel history on admission 12. Encourage annual influenza vaccine 13. Encourage pneumonia vaccine Outcome: Progressing Note: Evaluation of progress towards goal: Patient VS WNL, remains afebrile for shift. Problem: Cardiovascular - Adult Goal: Maintains optimal cardiac output and hemodynamic stability Description: Patient's goal is: INTERVENTIONS: 1. Monitor vital signs, rhythm, and trends 2. Monitor for bleeding, hypotension and signs of decreased cardiac output 3. Administer ordered vasoactive medications to optimize hemodynamic stability 4. Monitor arterial and/or venous puncture sites for bleeding and/or hematoma 5. Assess quality of pulses, skin color and temperature 10/16/20232 by Saul, RN Outcome: Progressing Note: Evaluation of progress towards goal: Vitals WNL, patient is diuresing, nephro consulted. I/O's continued 10/16/2023 1651 by GAMAL Aden Note: Evaluation of progress towards goal: Vitals WNL, patient is diuresing, nephro consulted. I/O's continued. [facility] 10-16-2023 Progress note Formatting of t his note is different from the original. Images from the original note were not included. Tele-NephrologyTelemedicine Consult Note Consent Statement: I discussed risks, benefits, and alternatives of a real-time synchronous audiovisual consultation with the patient (and any accompanying persons) including the risks that the patient's personal health details and medical records will be discussed over real-time, synchronous, interactive video/audio/telecommunication technology, the visit will not be recorded without the express consent of both the provider and the patient, and that there are some limitations compared to [id number] evaluations. We elected to proceed. Nephrology Daily Progress Note INTERVAL HISTORY/History of present illness: Patient denies any nausea or vomiting. She still has significant lower extremity swelling. No dizziness or lightheadedness PROBLEM LIST: Acute kidney injury from September of 2023 likely related to chronic intake of lisinopril and NSAIDs other etiologies not to be ruled out with baseline creatinine of about 0.8 from 2020. Renal ultrasound from September of 2023 showed right kidney size was 10.1 cm left kidney size was 10.9 cm. Otherwise unremarkable renal ultrasound . Hepatitis panel is negative. HIV is negative rheumatoid factor was elevated which was 76. C3 and C4 were normal. Serum free light chain ratio is 0.9 SAUL is pending. Sjkg-bnjgsf-saryxgce DNA is pending. Anca is pending. Glomerular basement membrane antibodies are pending. SPEP is pending. Urine protein to creatinine ratio is pending Hypertension Chronic Obstructive Pulmonary Disease lumen emphysema Fibromyalgia GERD Chronic back pain Cluster headaches Degenerative joint disease Cervical cancer status post total hysterectomy Toe amputation Polysubstance abuse Echocardiogram from September of 2023 is pending VITAL SIGNS TREND: Vitals: 10/16/23 0542 10/16/23 0725 10/16/23 0805 10/16/23 0807 BP: 168/79 (!) 148/117 Pulse: 85 77 Resp: 16 14 18 Temp: 36.8 C (98.2 F) 36.7 C (98 F) TempSrc: Oral Oral SpO2: 96% 95% Weight: Height: INTAKE/OUTPUT: Intake/Output Summary (Last 24 hours) at 10/16/2023 1032 Last data filed at 10/16/2023 0840 Gross per 24 hour Intake 2702.13 ml Output 4950 ml Net -2247.87 ml I/O this shift: In: 450 [P.O.:450] Out: 650 [Urine:650] WEIGHT: Wt Readings from Last 3 Encounters: 10/16/23 (!) 151.3 kg (333 lb 8 oz) 01/02/21 130.4 kg (287 lb 8 oz) 10/27/20 136.1 kg (300 lb) busPIRone, 15 mg, oral, BID donepeziL, 5 mg, oral, Nightly DULoxetine, 60 mg, oral, Daily ferrous sulfate, 325 mg, oral, Daily with breakfast furosemide, 60 mg, intravenous, Q8H TEDDY heparin (porcine), 5,000 Units, subcutaneous, Q8H TEDDY hydrALAZINE, 50 mg, oral, Q8H TEDDY magnesium oxide, 400 mg, oral, BID pantoprazole, 40 mg, oral, QAM AC potassium chloride, 20 mEq, oral, TID rosuvastatin, 10 mg, oral, Daily dextrose 5 % in water, 100 mL/hr, Last Rate: Stopped (10/16/23 0712) sodium chloride 0.9 %, 20 mL/hr PHYSICAL EXAM: Blood pressure (!) 148/117, pulse 77, temperature 36.7 C (98 F), temperature source Oral, resp. rate 18, height 152.4 cm (5'), weight (!) 151.3 kg (333 lb 8 oz), SpO2 95%, not currently . Temp: [36.4 C (97.5 F)-36.8 C (98.2 F)] 36.7 C (98 F) Pulse: [64-85] 77 Resp: [14-18] 18 BP: (136-168)/(62-117) 148/117 SpO2: [92 %-98 %] 95 % O2 Device: None (Room air) O2 Flow Rate (L/min): [0 L/min] 0 L/min Exam was based on my observation as well as nursing staff assessment. General appearance obese. No acute distress. Breathing comfortably. Lying flat. Respiratory she does have expiratory wheezing Extremity she has 2+ edema LABORATORY EVALUATION: Results from last 7 days Lab Units 10/16/23 0432 10/15/23 1050 10/15/23 0522 10/14/23 2220 SODIUM mmol/L 137 -- 140 139 POTASSIUM mmol/L 3.2* 3.5 3.2* 3.1* CHLORIDE mmol/L 101 -- 104 107 CO2 mmol/L 28 -- 26 27 BUN mg/dL 23 -- 20 19 CREATININE mg/dL 2.63* -- 2.56* 2.56* CALCIUM mg/dL 8.4* -- 8.4* 8.1* MAGNESIUM mg/dL 2.1 -- 1.7* 1.8 PHOSPHORUS mg/dL 4.3 -- -- -- Results from last 7 days Lab Units 10/16/23 0432 10/15/23 0522 10/14/23 2220 WBC X10E9/L 8.0 10.2 9.9 HEMOGLOBIN g/dL 9.5* 10.0* 10.9* HEMATOCRIT % 28.5* 30.1* 33.2* PLATELETS X10E9/L 252 312 319 Results from last 7 days Lab Units 10/16/23 0432 10/15/23 1050 10/15/23 0522 TOTAL PROTEIN g/dL 5.4* 4.7* 5.6* ALBUMIN g/dL 2.7* PENDING 2.8* AST U/L 13 -- 14 ALT U/L 9 -- 10 Results from last 7 days Lab Units 10/15/23 1050 CK TOTAL U/L 82 Ultrasound retroperitoneal complete Result Date: 10/16/2023 US RETROPERITONEAL COMPLETE: 10/16/2023 9:06 AM Indication: [...] Maksim Unger MD on 10/16/2023 9:42 AM IMPRESSION: Acute kidney injury of uncertain etiology. This is likely due to chronic NSAIDs use Hypertension blood pressure is on the high side Volume overload with bilateral lower extremity edema. Echocardiogram has been ordered. Is pending. Iron deficiency anemia with B12 deficiency Hypokalemia Plan : Start IV iron Start B12 supplement Increase IV Lasix to achieve more negative balance. Increase hydralazine Add Aldactone to help with the potassium wasting Continue with oral potassium chloride Strict Is&Os. Follow-up rest of serology workup Check random urine protein to creatinine ratio 24 hour urine collection for protein and creatinine Patient is aware that she will likely require kidney biopsy which can be done as an outpatient Irving Flores M.D. [facility] Thank you for your consultation and allowing us to participate in the care of Danielle Montana and please do not hesitate to call us with any questions at: Office: [phone] Office Answering Service: [phone] Please feel free to contact me through [employer] chat during the daytime hours, if no response after 5 minutes then call the answering service. This note was created with the assistance of a speech-recognition program. Although the intention is to generate a document that actually reflects the content of the visit, no guarantees can be provided that every mistake has been identified and corrected by editing. [employer] 10-16-2023 Progress note Formatting of t his note is different from the original. Images from the original note were not included. DISCHARGE PLANNING NOTE Discharge Planning Assessment Danielle Montana Admit Status: Inpatient Meet: Unknown Readmission Risk: 15%. Date of Admission: 10/14/2023 GMLOS: not available at time of assessment Target Discharge Date: not available at time of assessment Discharge Planning [facility]. Docent Coordinator identified self and role to the patient. Patient is agreeable to the assessment and discussion of a safe discharge plan. 10/16/23 0915 Discharge Disposition Discharge Disposition Home with Self Care County Information [facility] Patient Information Primary Caregiver Self Support System Immediate family (Patient states she has one living son and one grandson who help her out when needed.) Stressors Type of stressor Financial Explain issues Patient states finances are very tight in her home. She states she only gets $943.00/month and her rent is $650.00. She said that by the time she pays rent and her cell phone bill there are limited funds. Patient states she does receive food stamps. She states she did not qualify for disability and was rejected. Patient is currently under a Medicaid insurance plan. Income Information Income Information Unemployed Referral To Financial Resources (denies that she meets further financial means.) Community Resources Denies needs (Prior history of poly substance abuse.) Discharge Planning Living Arrangements Alone Support Systems Children (States she has one living son and one grandson. They help if needed. Patient states her other son last year from heart disease.) Assistance Needed Denies current needs. Patient stated she did not meet other financial benefits. Type of Residence Private residence Private Residence [facility] Access[facility] Steps into home Number of Steps 2 Home Care Services No Community Agencies Currently Utilized Food [place] (Patient states she does her own cooking and cleaning. Cleaning she just has to do it in parts and take it slow.) Established DME Comments Home nebulizer Patient expects to be discharged to: Home with self care Does the patient need discharge transport arranged? No Services Requested Discharge Disposition: Home with self care Does the patient need discharge transportation arranged?: No Patient choice offered: Other (comment) (N/A) Initial DC Assessment Completed: Yes Pharmacy: [facility] in [place], [place]. Used to use [facility]. PCP: No PCP. Tasked transition center to find patient a new PCP with a follow up in 7-10 days and a new patient appointment. Transportation at Time of Discharge: Son Patient will make her own follow up appointments: no Patient Goals: Goals home with self care (pt-stated) Evaluation of progress towards goal: patient currently does not have a PCP. Will obtain a PCP for her. PT Recommends: N/A OT Recommends: N/A Plan to prevent readmission: Find patient a primary care provider (PCP). Schedule a follow up appointment. Patient does not endorse any questions at this time. Patient Discharge Plan: Home with self care. Tasked transition center for PCP requisitions as below: Schedule a follow up appointment with new PCP for 7-10 days. Schedule a new patient appointment with new PCP as available. - Silvana Conklin RN 10/16/23 11:30 AM T [facility] 10-15-2023 Plan of care note Problem: Pain Goal: Patient goal is pain score less than 4, able to rest, and participant in treatment plan as appropriate Description: INTERVENTIONS: 1. Encourage patient or legal artists' booking representative to report early pain and ask for pain medicine when needed 2. Assess pain using appropriate pain scale and include the scale used when documenting 3. Administer analgesics based on type and severity of pain and evaluate response within appropriate time frame 4. Implement non-pharmacological measures as appropriate and evaluate response 5. Consider cultural and social influences on pain and pain management 6. Notify LIP if interventions ineffective or patient reports new pain 7. Monitor vital signs including pulse ox, end-tidal CO2 based on pain intervention 8. Reassess pain per policy 9. Teach patient or legal artists' booking representative interventions for comforting Outcome: Progressing Note: Evaluation of progress towards goal: Pt able to report pain according to 0/10 pain scale. Medicating patient for pain per orders. [facility] 10-15-2023 Plan of care note Problem: Pain Goal: Patient goal is pain score less than 4, able to rest, and participant in treatment plan as appropriate Description: INTERVENTIONS: 1. Encourage patient or legal artists' booking representative to report early pain and ask for pain medicine when needed 2. Assess pain using appropriate pain scale and include the scale used when documenting 3. Administer analgesics based on type and severity of pain and evaluate response within appropriate time frame 4. Implement non-pharmacological measures as appropriate and evaluate response 5. Consider cultural and social influences on pain and pain management 6. Notify LIP if interventions ineffective or patient reports new pain 7. Monitor vital signs including pulse ox, end-tidal CO2 based on pain intervention 8. Reassess pain per policy 9. Teach patient or legal artists' booking representative interventions for comforting Outcome: Progressing Note: Evaluation of progress towards goal: Pt able to report pain according to 0/10 pain scale. Medicating patient for pain per orders. Problem: Knowledge Deficit Goal: Patient/patient artists' booking representative demonstrates understanding of disease process, treatment plan, medications, and discharge instructions Description: INTERVENTIONS 1. Complete learning assessment and assess knowledge base 2. Provide teaching at level of understanding 3. Provide teaching via preferred learning method(s) 10/15/2023 1704 by GAMAL Reyes Outcome: Progressing Note: Evaluation of progress towards goal: POC discussed with patient. Questions answered PRN. 10/15/2023 0731 by GAMAL Reyes Outcome: Progressing Note: Evaluation of progress towards goal: POC discussed with patient. Questions answered PRN. Problem: Discharge Planning Goal: Discharge to post-acute care, other facility, or home with appropriate resources Description: Patient's goal is: INTERVENTIONS 1. Conduct assessment to determine patient/family and health care team treatment goals, and need for post-acute services based on payer coverage, community resources, and patient preferences, and barriers to discharge 2. Coordinate with Social work, Care Navigation, and Utilization Review to arrange appropriate level of services according to patient's needs based on patient preference and payer coverage in collaboration with the physician and health care team 3. Address psychosocial, clinical, and financial barriers to discharge as identified in assessment in conjunction with the patient/family and health care team 4. Consult appropriate ancillary services (i.e.. PT/OT/ST, etc) as needed 5. Communicate with and update the patient/family, physician, and health care team regarding progress on the discharge plan 6. Identify discharge learning needs (meds, wound care, etc). 7. Arrange for needed discharge transportation as appropriate Outcome: Progressing Note: Evaluation of progress towards goal: Continue to assess for when appropriate. [employer] 10-15-2023 Consult note Formatting of th is note is different from the original. Images from the original note were not included. NEPHROLOGY CONSULT NOTE Date of Admission: 10/14/2023 10:02 PM Reason for Consult: Elevated creatinine Referring Provider: BRUCE Butcher PCP: PCP Not In System Chief Complaint: Not feeling good for the past several weeks with decreased appetite and lower extremity swelling. History of Present Illness: Danielle Montana is a 58 y.o. female who presented with the above chief complaint. The patient has a history of hypertension hyperlipidemia Chronic Obstructive Pulmonary Disease and fibromyalgia. She does have history of polysubstance abuse in the past. She presented to the hospital with the above chief complaints. She was found to have acute kidney injury with a creatinine of 2.56. Her baseline creatinine is about 0.8 from February of 2021. She was found to have hypertensive urgency. She reports worsening for cluster headache. She was noted to be hypokalemic with a potassium of 3.1. Magnesium is 1.8. Hemoglobin was 10.0. Other than the generalized weakness with decreased appetite and leg swelling she reports difficulty passing urine. Denies any history recurrent UTIs or kidney stones. Denies any family history chronic kidney disease or dialysis. Denies any recent illnesses, surgeries or procedures. She does report frequent intake of Advil for headache. We were consulted for evaluation of acute kidney injury in the setting of the above. Past Medical and Surgical History: Acute kidney injury from September of 2023 likely related to chronic intake of lisinopril and NSAIDs other etiologies not to be ruled out with baseline creatinine of about 0.8 from 2020. Renal ultrasound, CPK, serum electrophoresis, free light chains, SAUL, anti MPO, anti PR3, anti-GBM, C3, C4, hepatitis-B and C, HIV, cryoglobulins, rheumatoid factor, urine dipstick, fractional excretion of sodium and urine protein to creatinine ratio are pending. Hypertension Chronic Obstructive Pulmonary Disease lumen emphysema Fibromyalgia GERD Chronic back pain Cluster headaches Degenerative joint disease Cervical cancer status post total hysterectomy Toe amputation Polysubstance abuse Echocardiogram from September of 2023 is pending Allergies: Allergies Allergen Reactions Lyrica [Pregabalin] Other (See Comments) Mental changes Codeine Vomiting Other reaction(s): Nausea And Vomiting Bactrim [Sulfamethoxazole-Trimethoprim] Hives Home Meds: Medications Prior to Admission Medication Sig Dispense Refill Last Dose busPIRone (BUSPAR) 15 mg tablet Take 1 tablet (15 mg total) by mouth in the morning and 1 tablet (15 mg total) before bedtime. 10/14/2023 CALCIUM ORAL Take 600 mg by mouth 2 (two) times a day. 10/14/2023 cholecalciferol, vitamin D3, (VITAMIN D3 ORAL) Take 2,000 Unit by mouth daily. 10/14/2023 donepeziL (ARICEPT) 5 mg tablet Take 1 tablet (5 mg total) by mouth nightly. 10/14/2023 DULoxetine (CYMBALTA) 60 mg capsule Take 1 capsule (60 mg total) by mouth in the morning. 10/14/2023 lisinopriL (PRINIVIL,ZESTRIL) 10 mg tablet Take 1 tablet (10 mg total) by mouth in the morning. 10/14/2023 omeprazole (PriLOSEC) 40 mg capsule Take 1 capsule (40 mg total) by mouth in the morning. 10/14/2023 rosuvastatin (CRESTOR) 10 mg tablet Take 1 tablet (10 mg total) by mouth in the morning. 10/14/2023 ipratropium-albuteroL (DUO-NEB) 0.5 mg-3 mg(2.5 mg base)/3 mL nebulizer Inhale 3 mL by nebulization every 4 (four) hours while awake. 90 mL 0 Current medications: busPIRone, 15 mg, oral, BID donepeziL, 5 mg, oral, Nightly DULoxetine, 60 mg, oral, Daily [START ON 10/16/2023] heparin (porcine), 5,000 Units, subcutaneous, Q8H TEDDY naloxone, , , pantoprazole, 40 mg, oral, QAM AC rosuvastatin, 10 mg, oral, Daily Social History: Social History Socioeconomic History Marital status: Single Spouse name: Not on file Number of children: Not on file Years of education: Not on file Highest education level: Not on file Occupational History Not on file Tobacco Use Smoking status: Every Day Current packs/day: 1.00 Average packs/day: 1 pack/day for 44.0 years (44.0 ttl pk-yrs) Types: Cigarettes Smokeless tobacco: Never Vaping Use Vaping status: Never Used Substance and Sexual Activity Alcohol use: Not Currently Drug use: Not Currently Types: Cocaine, Marijuana Comment: pt says not using anything, used cocaine last night Sexual activity: Defer Other Topics Concern Coffee Not Asked Tea Not Asked Carbonated Beverages Not Asked Chocolate Not Asked Caffeine Use Yes Comment: COFFEE 2 CUPS DAILY Social History Narrative Not on file Social Determinants of Health Financial Resource Strain: Not on file Food Insecurity: No Food Insecurity (10/15/2023) Hunger Screening Food Insecurity - Worry: Never True Food Insecurity - Inability: Never True Transportation Needs: No Transportation Needs (10/15/2023) PRAPARE - Transportation Lack of Transportation (Medical): No Lack of Transportation (Non-Medical): No Physical Activity: Not on file Stress: Not on file Social Connections: Not on file Interpersonal Safety: Not At Risk (10/15/2023) Humiliation, Afraid, Rape, and Kick questionnaire Fear of Current or Ex-Partner: No Emotionally Abused: No Physically Abused: No Sexually Abused: No Housing Instability: Low Risk (10/15/2023) Housing Instability Housing Instability: No Family History: Family History Problem Relation Age of Onset Hypertension Mother Diabetes Mother Cataracts Mother Depression Mother Hypertension Father Heart disease Father Alcohol abuse Father Depression Father Cancer Sister Thyroid disease Sister Anxiety disorder Sister Depression Sister Glaucoma Son Review of Systems: She reports decreased appetite. Reports generalized weakness. Reports edema. Reports difficulty passing urine. Denies any fevers, chills or night sweats. Denies any earaches, runny nose or sore throat. Denies any cough, sputum production or shortness of breath. Denies any chest pain or palpitation. Denies any nausea, vomiting, abdominal pain, diarrhea or constipation. Denies any pain or burning on urination but reports passing urine. Reports edema. Denies any new skin rashes, lesions or ulcers. Denies any new joint aches or swelling. Denies any focal weakness or paresthesia or tremors. Denies any easy bruising Physical Exam Vitals: 10/15/23 0125 10/15/23 0202 10/15/23 0607 10/15/23 0720 BP: (!) 142/92 149/85 156/81 (!) 167/92 Pulse: 65 58 61 57 Resp: 17 20 18 18 Temp: 36.5 C (97.7 F) 36.6 C (97.9 F) TempSrc: Oral Oral SpO2: 96% 98% 98% 97% Weight: (!) 166 kg (366 lb) Height: 152.4 cm (5') INTAKE/OUTPUT:No intake or output data in the 24 hours ending 10/15/23 1010 No intake/output data recorded. Vital Signs: Blood pressure (!) 167/92, pulse 57, temperature 36.6 C (97.9 F), temperature source Oral, resp. rate 18, height 152.4 cm (5'), weight (!) 166 kg (366 lb), SpO2 97%, not currently . Respiratory Source: O2 Device: None (Room air) Admission Weight: Weight: (!) 152.4 kg (336 lb) Physical exam was obtained by my observation on the video conference as well as his nurse's physical assessment. General appearance: alert in no apparent distress. Psychiatric: Oriented to place, time and person HEENT: atraumatic, supple, moist oral mucosa, no JVD Cardiovascular: normal S1-S2 Respiratory: No respiratory distress with no use of accessory muscles. Clear to auscultation bilaterally with no wheezes or crackles Abdomen: soft, no tenderness, no guarding, positive bowel sounds and no hepato or splenomegaly Cardiovascular: 2+ edema Vascular: adequate pulses and no carotid bruits. Musculoskeletal: no joint swelling or tenderness. Neurologic: No focal deficit in upper or lower extremities Lymphatic: no cervical or axillary lymphadenopathy. Laboratory Workup: Results from last 7 days Lab Units 10/15/23 0522 10/14/23 2220 SODIUM mmol/L 140 139 POTASSIUM mmol/L 3.2* 3.1* CHLORIDE mmol/L 104 107 CO2 mmol/L 26 27 ANION GAP mmol/L 10 5 BUN mg/dL 20 19 CREATININE mg/dL 2.56* 2.56* CALCIUM mg/dL 8.4* 8.1* MAGNESIUM mg/dL 1.7* 1.8 Results from last 7 days Lab Units 10/15/23 0522 TOTAL PROTEIN g/dL 5.6* ALBUMIN g/dL 2.8* AST U/L 14 ALT U/L 10 TOTAL BILIRUBIN mg/dL 0.4 ALK PHOS U/L 61 Results from last 7 days Lab Units 10/15/23 0522 10/14/23 2220 WBC X10E9/L 10.2 9.9 HEMOGLOBIN g/dL 10.0* 10.9* HEMATOCRIT % 30.1* 33.2* PLATELETS X10E9/L 312 319 Lab Results Component Value Date IRON 39 (L) 07/17/2017 TIBC 242 (L) 07/17/2017 IRONSAT 16 07/17/2017 Results from last 7 days Lab Units 10/15/23 0522 10/14/23 2220 GLUCOSE mg/dL 103* 95 Urine Lab Results Component Value Date COLOR YELLOW 02/02/2019 TURBIDITY HAZY (A) 02/02/2019 SPECIFICGRA >=1.030 06/21/2019 SPECIFICGRA 1.017 02/02/2019 NITRITE Negative 02/02/2019 PHURINE 5.5 02/02/2019 LEUKOCYTE Negative 06/21/2019 LEUKOCYTE MODERATE (A) 02/02/2019 PROTEIN Trace (A) 02/02/2019 KETONES Negative 02/02/2019 UROBILINOGEN 0.2 06/21/2019 UROBILINOGEN 0.2 02/02/2019 BLOODHGB Large (A) 02/02/2019 Lab Results Component Value Date URINECREATI 85.93 02/02/2019 PROTUR 350 (H) 02/02/2019 MICROALBUR 0.3 08/15/2014 Immunology Profile Lab Results Component Value Date PROTELECTR 02/02/2019 Unremarkable protein distribution, no monoclonal bands. SEDRATE 18 03/03/2021 CRP 1.0 (H) 03/03/2021 ANASCREEN Negative 03/03/2021 C3 121 02/02/2019 C4 34 02/02/2019 MYELOP 1.2 (H) 02/02/2019 PROTEINASE3 <0.2 02/02/2019 No results found for: HAV , HEPAIGM , HEPBIGM , HEPBCAB , HBEAG , HEPCAB Imaging: Chest x-ray which revealed mild pulmonary edema. Impression and Plan: 1. Acute kidney injury of uncertain etiology. Could related to chronic intake of NSAIDs and ongoing intake of lisinopril. The patient is volume overloaded and so her decreased p.o. intake does not explain her acute kidney injury. It could related to other etiologies such as nephrotic syndrome especially with her edema and low albumin. Renal ultrasound serologies and urine studies will be ordered. Lisinopril will be held. Unable to administer IV fluids given her edema. Advise avoiding nephrotoxins such as NSAIDs and IV contrast. Advise avoiding hypotension. 2. Hypertension: Unable to restart lisinopril because of acute kidney injury. Will hold off on calcium channel blockers given edema. Hold off on beta blockers given her relatively low heart rate. Will start hydralazine. IV hydralazine and IV labetalol will be ordered. Will continue to follow up blood pressure and titrate accordingly. 3. Bilateral lower extremity edema. Lower extremity Doppler will be ordered. Echocardiogram will be ordered. Urine dipstick with urine protein creatinine ratio will be ordered to rule out nephrotic syndrome. IV Lasix was ordered. IV fluids was discontinued. Will assess edema and diuretic regimen in a.m.. 4. Hypokalemia: Continue to follow potassium and replace per sliding scale as needed. Given that the IV Lasix will be started, I will start the scheduled potassium chloride. 5. Hypomagnesemia: Magnesium oxide will be added. Continue to follow magnesium and replace per sliding scale as needed. 6. Hypocalcemia: Will check ionized calcium replace per sliding scale as needed. Corrected calcium is normal given her low albumin. 7. Anemia: Iron studies B12 and folate and stool occult will be ordered and further recommendations will be made accordingly. Thank you for your consultation and allowing us to participate in the care of Danielle Montana and please do not hesitate to call us with any questions at: Office: [phone] Office Answering Service: [phone] Fran Wild M.D. This note was created with the assistance of a speech-recognition program. Although the intention is to generate a document that actually reflects the content of the visit, no guarantees can be provided that every mistake has been identified and corrected by editing. Consults Tele-Nephrology Telemedicine Consult Note Consent Statement: I discussed risks, benefits, and alternatives of a real-time synchronous audiovisual consultation with the patient (and any accompanying persons) including the risks that the patient's personal health details and medical records will be discussed over real-time, synchronous, interactive video/audio/telecommunication technology, the visit will not be recorded without the express consent of both the provider and the patient, and that there are some limitations compared to [id number] evaluations. We elected to proceed. [facility] Phone: 10-15-2023 History and physical note Images from the original note were not included. [facility] Hospital Medicine History & Physical Patient: Danielle Montana Date of : 1965 Room: [facility] PCP: PCP Not In System Admission date: 10/14/2023 10:02 PM Encounter date: 10/15/23 SUBJECTIVE Danielle Montana is a 58 y.o. female who presents with leg swelling, right hand swelling, chest pain, nausea, and cough. Pt describes her chest pain as burning sensation. Pt reports experiencing fatigued and tired for the past couple of weeks. Pt reports history of sleep apnea. Pt states when she tries to sleep she is startled and wakes up. Pt states her CPAP machine had broke for a few months now. Pt reports informing her doctor about her CPAP machine but they have not replaced it. Pt is allergic to Lyrica, Codeine, and Bactrim. ER Course: Labs notable for: CBC unremarkable, BMP significantly shows ERIN, with creatinine 2.56 (last creatinine was 2 years ago at 0.82) slightly elevated Troponin I at 39, and BNP elevated to 400. Imaging was independently viewed by Dr. Elliott and is notable for low lung volumes and hypoventilatory change, Central pulmonary vascular congestion without overt pulmonary edema. No sizable pleural effusion, no definite pneumothorax. Chief Complaint Patient presents with Leg Swelling Arm Swelling Nausea Cough Allergies: Lyrica [pregabalin], Codeine, and Bactrim [sulfamethoxazole-trimethoprim] Prior to Admission medications Medication Sig Start Date End Date Taking? Authorizing Provider busPIRone (BUSPAR) 15 mg tablet Take 1 tablet (15 mg total) by mouth in the morning and 1 tablet (15 mg total) before bedtime. Yes Not In System Ref Prov CALCIUM ORAL Take 600 mg by mouth 2 (two) times a day. Yes Not In System Ref Prov cholecalciferol, vitamin D3, (VITAMIN D3 ORAL) Take 2,000 Unit by mouth daily. Yes Not In System Ref Prov donepeziL (ARICEPT) 5 mg tablet Take 1 tablet (5 mg total) by mouth nightly. Yes Not In System Ref Prov DULoxetine (CYMBALTA) 60 mg capsule Take 1 capsule (60 mg total) by mouth in the morning. 08/16/17 Yes Not In System Ref Prov lisinopriL (PRINIVIL,ZESTRIL) 10 mg tablet Take 1 tablet (10 mg total) by mouth in the morning. Yes Not In System Ref Prov omeprazole (PriLOSEC) 40 mg capsule Take 1 capsule (40 mg total) by mouth in the morning. Yes Not In System Ref Prov rosuvastatin (CRESTOR) 10 mg tablet Take 1 tablet (10 mg total) by mouth in the morning. Yes Not In System Ref Prov ipratropium-albuteroL (DUO-NEB) 0.5 mg-3 mg(2.5 mg base)/3 mL nebulizer Inhale 3 mL by nebulization every 4 (four) hours while awake. 01/02/21 Anirudh Becerra MD Past Medical History: Patient has a past medical history of Anxiety, Back pain, Cancer ([facility]), Cervical cancer ([facility]), Chest pain, Cluster headache, COPD (chronic obstructive pulmonary disease) ([facility]), Degenerative arthritis, Depression, Dry mouth, Emphysema, Emphysema of lung ([facility]), Fibromyalgia, Fibromyalgia, primary, GERD (gastroesophageal reflux disease), Heartburn, Hypertension, Joint pain, Morbid obesity ([facility]), Mouth sores, MRSA (methicillin resistant Staphylococcus aureus), Nausea, Obesity, Osteoporosis, PAD (peripheral artery disease) ([facility]), PVD (peripheral vascular disease) [place] Sleep apnea, SOB (shortness of breath), Stiff muscles, Swollen ankles, and Weakness. Past Surgical History: Patient has a past surgical history that includes pr drainage of hematoma/fluid (Left, 11/16/2015); Toe amputation; Cardiac catheterization (N/A, 11/18/2016); Abdominal surgery; Hysterectomy (06/22/1998); and Colonoscopy (N/A, 10/14/2019). Family History: Patient's family history includes Alcohol abuse in her father; Anxiety disorder in her sister; Cancer in her sister; Cataracts in her mother; Depression in her father, mother, and sister; Diabetes in her mother; Glaucoma in her son; Heart disease in her father; Hypertension in her father and mother; Thyroid disease in her sister. Social History: Patient reports that she has been smoking cigarettes. She has a 44 pack-year smoking history. She has never used smokeless tobacco. She reports that she does not currently use alcohol. She reports that she does not currently use drugs after having used the following drugs: Cocaine and Marijuana. Review of Systems Review of Systems Constitutional: Negative for activity change, appetite change, chills, diaphoresis, fatigue and fever. HENT: Negative for tinnitus and trouble swallowing. Respiratory: Positive for shortness of breath. Negative for cough, chest tightness and wheezing. Cardiovascular: Positive for leg swelling. Negative for chest pain and palpitations. Gastrointestinal: Negative for abdominal pain, diarrhea, nausea and vomiting. Genitourinary: Negative for difficulty urinating. Musculoskeletal: Negative for gait problem. Skin: Negative for rash. Neurological: Positive for headaches. Negative for dizziness, syncope, speech difficulty, weakness, light-headedness and numbness. Psychiatric/Behavioral: Negative for sleep disturbance. OBJECTIVE BP (!) 167/92 Pulse 57 Temp 36.6 C (97.9 F) (Oral) Resp 18 Ht 152.4 cm (5') Wt (!) 166 kg (366 lb) SpO2 97% BMI 71.48 kg/m No intake or output data in the 24 hours ending 10/15/23 0835 Physical Exam Physical Exam Vitals and nursing note reviewed. Constitutional: General: She is not in acute distress. HENT: Head: Normocephalic and atraumatic. Right Ear: External ear normal. Left Ear: External ear normal. Nose: Nose normal. Mouth/Throat: Mouth: Mucous membranes are moist. Pharynx: Oropharynx is clear. Eyes: Extraocular Movements: Extraocular movements intact. Pupils: Pupils are equal, round, and reactive to light. Neck: Vascular: No carotid bruit or JVD. Cardiovascular: Rate and Rhythm: Normal rate and regular rhythm. Pulses: Normal pulses. Pulmonary: Effort: Pulmonary effort is normal. Breath sounds: Normal breath sounds. Abdominal: General: Bowel sounds are normal. Palpations: Abdomen is soft. Tenderness: There is no abdominal tenderness. There is no right CVA tenderness or left CVA tenderness. Musculoskeletal: Right lower le+ Pitting Edema present. Left lower le+ Pitting Edema present. Lymphadenopathy: Cervical: No cervical adenopathy. Skin: General: Skin is warm and dry. Capillary Refill: Capillary refill takes less than 2 seconds. Neurological: General: No focal deficit present. Mental Status: She is alert and oriented to person, place, and time. Psychiatric: Mood and Affect: Mood normal. Behavior: Behavior normal. Thought Content: Thought content normal. Judgment: Judgment normal. Medications Scheduled: busPIRone, 15 mg, oral, BID donepeziL, 5 mg, oral, Nightly DULoxetine, 60 mg, oral, Daily [START ON 10/16/2023] heparin (porcine), 5,000 Units, subcutaneous, Q8H TEDDY lisinopriL, 10 mg, oral, Daily naloxone, , , pantoprazole, 40 mg, oral, QAM AC rosuvastatin, 10 mg, oral, Daily Infusions: dextrose 5 % in water, 100 mL/hr sodium chloride 0.9 %, 20 mL/hr sodium chloride 0.9 %, 50 mL/hr As Needed: acetaminophen dextrose dextrose 5 % in water dextrose 50 % in water (D50W) glucagon (human recombinant) ipratropium-albuteroL magnesium sulfate magnesium sulfate naloxone ondansetron ODT potassium chloride sodium chloride sodium chloride sodium chloride 0.9 % Allergies: Lyrica [pregabalin], Codeine, and Bactrim [sulfamethoxazole-trimethoprim] Labs Recent Results (from the past 24 hour(s)) CBC auto differential Collection Time: 10/14/23 10:20 PM Result Value Ref Range White Blood Cells 9.9 4.0 - 11.0 X10E9/L RBC count 3.95 3.80 - 5.20 X10E12/L Hemoglobin 10.9 (L) 11.7 - 15.5 g/dL Hematocrit 33.2 (L) 35 - 47 % MCV 84 80 - 100 fL MCH 27.7 27 - 34 pg MCHC 32.9 32 - 36 g/dL RDW 14.6 11.5 - 15.0 % Platelets 319 150 - 450 X10E9/L MPV 8.9 7 - 12 fL % neutrophils 57.6 % % lymphocytes 28.7 % % monocytes 8.1 % % eosinophils 4.9 % % Basophils 0.7 % Neutrophils Absolute (A) 5.7 1.5 - 6.6 X10E9/L Lymphocytes Absolute 2.8 1.0 - 3.5 X10E9/L Monocytes Absolute 0.8 0 - 0.9 X10E9/L Eosinophils Absolute 0.5 (H) 0.0 - 0.4 X10E9/L Basophils Absolute 0.1 0.0 - 0.2 X10E9/L Basic Metabolic Panel Collection Time: 10/14/23 10:20 PM Result Value Ref Range Sodium 139 134 - 146 mmol/L Potassium, Bld 3.1 (L) 3.5 - 5.0 mmol/L Chloride 107 98 - 109 mmol/L CO2 27 22 - 32 mmol/L Anion gap 5 5 - 15 mmol/L BUN 19 5 - 23 mg/dL Creatinine 2.56 (H) 0.40 - 1.00 mg/dL Glucose 95 65 - 99 mg/dL Calcium 8.1 (L) 8.5 - 10.5 mg/dL eGFR (CKD-EPI)non-race dependent 21 (L) >59 ml/min/1.73sq.m Magnesium Collection Time: 10/14/23 10:20 PM Result Value Ref Range Magnesium 1.8 1.8 - 2.6 mg/dL Troponin I, High Sensitivity Collection Time: 10/14/23 10:20 PM Result Value Ref Range Troponin I, High Sensitivity 39 (H) <16 ng/L B-type natriuretic peptide Collection Time: 10/14/23 10:20 PM Result Value Ref Range BNP 427 (H) <100.0 pg/mL Troponin I, High Sensitivity 1 Hour Collection Time: 10/14/23 11:36 PM Result Value Ref Range 1 Hour Trop I, High Sensitivity 39 (H) <16 ng/L Comprehensive metabolic panel Collection Time: 10/15/23 5:22 AM Result Value Ref Range Sodium 140 134 - 146 mmol/L Potassium, Bld 3.2 (L) 3.5 - 5.0 mmol/L Chloride 104 98 - 109 mmol/L CO2 26 22 - 32 mmol/L Anion gap 10 5 - 15 mmol/L BUN 20 5 - 23 mg/dL Creatinine 2.56 (H) 0.40 - 1.00 mg/dL Glucose 103 (H) 65 - 99 mg/dL Calcium 8.4 (L) 8.5 - 10.5 mg/dL Total Protein 5.6 (L) 6.0 - 8.0 g/dL Albumin 2.8 (L) 3.2 - 5.3 g/dL Alkaline Phosphatase 61 39 - 130 U/L AST 14 0 - 41 U/L ALT 10 0 - 31 U/L Total bilirubin 0.4 0.3 - 1.2 mg/dL eGFR (CKD-EPI)non-race dependent 21 (L) >59 ml/min/1.73sq.m Magnesium Collection Time: 10/15/23 5:22 AM Result Value Ref Range Magnesium 1.7 (L) 1.8 - 2.6 mg/dL CBC auto differential Collection Time: 10/15/23 5:22 AM Result Value Ref Range White Blood Cells 10.2 4.0 - 11.0 X10E9/L RBC count 3.59 (L) 3.80 - 5.20 X10E12/L Hemoglobin 10.0 (L) 11.7 - 15.5 g/dL Hematocrit 30.1 (L) 35 - 47 % MCV 84 80 - 100 fL MCH 27.7 27 - 34 pg MCHC 33.1 32 - 36 g/dL RDW 14.6 11.5 - 15.0 % Platelets 312 150 - 450 X10E9/L MPV 9.0 7 - 12 fL % neutrophils 66.8 % % lymphocytes 23.7 % % monocytes 5.5 % % eosinophils 3.3 % % Basophils 0.7 % Neutrophils Absolute (A) 6.8 (H) 1.5 - 6.6 X10E9/L Lymphocytes Absolute 2.4 1.0 - 3.5 X10E9/L Monocytes Absolute 0.6 0 - 0.9 X10E9/L Eosinophils Absolute 0.3 0.0 - 0.4 X10E9/L Basophils Absolute 0.1 0.0 - 0.2 X10E9/L Radiology X-ray chest 1 view Result Date: 10/14/2023 Narrative: Single view chest History: Difficulty breathing, shortness of breath Comparison: 01/01/2021 Impression: 1. Low lung volumes and hypoventilatory change, Central pulmonary vascular congestion without overt pulmonary edema. No sizable pleural effusion, no definite pneumothorax. 2. Borderline cardiomegaly. Finalized by Naren Morris MD on 10/14/2023 11:39 PM HOSPITAL PROBLEM LIST Principal Problem: [place] Problems: Chronic obstructive pulmonary disease [place] Hypertension ADORE (obstructive sleep apnea) Hypokalemia Edema of both lower extremities Mixed hyperlipidemia ASSESSMENT & PLAN ERIN: Gentle hydration. Nephrology consult. Monitor kidney function daily. Edema both lower extremities: Monitor daily weight and I&O. Echocardiogram ordered. Nephrology consult help with diuresis/fluid balance. Hypokalemia: Supplement. pvc monitor. Monitor electrolytes daily replace per protocol. COPD: No acute exacerbation. Continue home inhalers and nebulizers. Obstructive sleep apnea: Noncompliant at home due to broken machine. Unable to get replace. Will order hospital machine while inpatient. Hypertension: Elevated on admission. Two doses labetalol in the emergency department. Hold home lisinopril due to kidney function. Continue hydralazine IV as needed blood pressures greater than 150. Hyperlipidemia: Continue home statin. Admission orders placed and home medications reconciled. DVT prophylaxis: EPC's and heparin subQ. GI prophylaxis. Protonix PT/OT to evaluate and treat. DC planning: Discharge home in 1-2 days. Appreciate Nephrology input. Antione Santa, [employer], 10/15/2023 8:35 AM [facility] Internal Medicine 7AM-7PM (all facilities): MediW[employer]Chat or page through [facility]. 7PM-7AM ([facility], [facility]patient Re[facility]): EpicChat or page, [phone]. 7PM-7AM ([place] [place], [place], [place], [place] and [facility] Rehab): EpicChat or page through [facility]. Physician Attestation: I have reviewed the above note authored by the Advance Practice Provider (DEREK) including history, review of systems, physical examination, medical decision making and agree with the assessment & plan. I have personally performed a face to face diagnostic evaluation on this patient. I have reviewed all laboratory findings and imaging reports/films. I have independently evaluated the patient and repeated vázquez portions of the physical exam. I agree with the DEREK plan as above, unless otherwise noted. DRE JEWELL MD [employer] Work Phone: 10-15-2023 History and physical note Images from the original note were not included. [facility] Hospital Medicine History & Physical Patient: Danielle Montana Date of : 1965 Room: 214/01 PCP: PCP Not In System Admission date: 10/14/2023 10:02 PM Encounter date: 10/15/23 SUBJECTIVE Danielle Montana is a 58 y.o. female who presents with leg swelling, right hand swelling, chest pain, nausea, and cough. Pt describes her chest pain as burning sensation. Pt reports experiencing fatigued and tired for the past couple of weeks. Pt reports history of sleep apnea. Pt states when she tries to sleep she is startled and wakes up. Pt states her CPAP machine had broke for a few months now. Pt reports informing her doctor about her CPAP machine but they have not replaced it. Pt is allergic to Lyrica, Codeine, and Bactrim. ER Course: Labs notable for: CBC unremarkable, BMP significantly shows ERIN, with creatinine 2.56 (last creatinine was 2 years ago at 0.82) slightly elevated Troponin I at 39, and BNP elevated to 400. Imaging was independently viewed by Dr. Elliott and is notable for low lung volumes and hypoventilatory change, Central pulmonary vascular congestion without overt pulmonary edema. No sizable pleural effusion, no definite pneumothorax. Chief Complaint Patient presents with Leg Swelling Arm Swelling Nausea Cough Allergies: Lyrica [pregabalin], Codeine, and Bactrim [sulfamethoxazole-trimethoprim] Prior to Admission medications Medication Sig Start Date End Date Taking? Authorizing Provider busPIRone (BUSPAR) 15 mg tablet Take 1 tablet (15 mg total) by mouth in the morning and 1 tablet (15 mg total) before bedtime. Yes Not In System Ref Prov CALCIUM ORAL Take 600 mg by mouth 2 (two) times a day. Yes Not In System Ref Prov cholecalciferol, vitamin D3, (VITAMIN D3 ORAL) Take 2,000 Unit by mouth daily. Yes Not In System Ref Prov donepeziL (ARICEPT) 5 mg tablet Take 1 tablet (5 mg total) by mouth nightly. Yes Not In System Ref Prov DULoxetine (CYMBALTA) 60 mg capsule Take 1 capsule (60 mg total) by mouth in the morning. 08/16/17 Yes Not In System Ref Prov lisinopriL (PRINIVIL,ZESTRIL) 10 mg tablet Take 1 tablet (10 mg total) by mouth in the morning. Yes Not In System Ref Prov omeprazole (PriLOSEC) 40 mg capsule Take 1 capsule (40 mg total) by mouth in the morning. Yes Not In System Ref Prov rosuvastatin (CRESTOR) 10 mg tablet Take 1 tablet (10 mg total) by mouth in the morning. Yes Not In System Ref Prov ipratropium-albuteroL (DUO-NEB) 0.5 mg-3 mg(2.5 mg base)/3 mL nebulizer Inhale 3 mL by nebulization every 4 (four) hours while awake. 01/02/21 Anirudh Becerra MD Past Medical History: Patient has a past medical history of Anxiety, Back pain, Cancer [place] Cervical cancer ([facility] Chest pain, Cluster headache, COPD (chronic obstructive pulmonary disease) ([facility] [place] Degenerative arthritis, Depression, Dry mouth, Emphysema, Emphysema of lung ([facility]), Fibromyalgia, Fibromyalgia, primary, GERD (gastroesophageal reflux disease), Heartburn, Hypertension, Joint pain, Morbid obesity ([facility]), Mouth sores, MRSA (methicillin resistant Staphylococcus aureus), Nausea, Obesity, Osteoporosis, PAD (peripheral artery disease) ([facility]), PVD [place]peripheral vascular disease) [place] Sleep apnea, SOB (shortness of breath), Stiff muscles, Swollen ankles, and Weakness. Past Surgical History: Patient has a past surgical history that includes pr drainage of hematoma/fluid (Left, 11/16/2015); Toe amputation; Cardiac catheterization (N/A, 11/18/2016); Abdominal surgery; Hysterectomy (06/22/1998); and Colonoscopy (N/A, 10/14/2019). Family History: Patient's family history includes Alcohol abuse in her father; Anxiety disorder in her sister; Cancer in her sister; Cataracts in her mother; Depression in her father, mother, and sister; Diabetes in her mother; Glaucoma in her son; Heart disease in her father; Hypertension in her father and mother; Thyroid disease in her sister. Social History: Patient reports that she has been smoking cigarettes. She has a 44 pack-year smoking history. She has never used smokeless tobacco. She reports that she does not currently use alcohol. She reports that she does not currently use drugs after having used the following drugs: Cocaine and Marijuana. Review of Systems Review of Systems Constitutional: Negative for activity change, appetite change, chills, diaphoresis, fatigue and fever. HENT: Negative for tinnitus and trouble swallowing. Respiratory: Positive for shortness of breath. Negative for cough, chest tightness and wheezing. Cardiovascular: Positive for leg swelling. Negative for chest pain and palpitations. Gastrointestinal: Negative for abdominal pain, diarrhea, nausea and vomiting. Genitourinary: Negative for difficulty urinating. Musculoskeletal: Negative for gait problem. Skin: Negative for rash. Neurological: Positive for headaches. Negative for dizziness, syncope, speech difficulty, weakness, light-headedness and numbness. Psychiatric/Behavioral: Negative for sleep disturbance. OBJECTIVE BP (!) 167/92 Pulse 57 Temp 36.6 C (97.9 F) (Oral) Resp 18 Ht 152.4 cm (5') Wt (!) 166 kg (366 lb) SpO2 97% BMI 71.48 kg/m No intake or output data in the 24 hours ending 10/15/23 0835 Physical Exam Physical Exam Vitals and nursing note reviewed. Constitutional: General: She is not in acute distress. HENT: Head: Normocephalic and atraumatic. Right Ear: External ear normal. Left Ear: External ear normal. Nose: Nose normal. Mouth/Throat: Mouth: Mucous membranes are moist. Pharynx: Oropharynx is clear. Eyes: Extraocular Movements: Extraocular movements intact. Pupils: Pupils are equal, round, and reactive to light. Neck: Vascular: No carotid bruit or JVD. Cardiovascular: Rate and Rhythm: Normal rate and regular rhythm. Pulses: Normal pulses. Pulmonary: Effort: Pulmonary effort is normal. Breath sounds: Normal breath sounds. Abdominal: General: Bowel sounds are normal. Palpations: Abdomen is soft. Tenderness: There is no abdominal tenderness. There is no right CVA tenderness or left CVA tenderness. Musculoskeletal: Right lower le+ Pitting Edema present. Left lower le+ Pitting Edema present. Lymphadenopathy: Cervical: No cervical adenopathy. Skin: General: Skin is warm and dry. Capillary Refill: Capillary refill takes less than 2 seconds. Neurological: General: No focal deficit present. Mental Status: She is alert and oriented to person, place, and time. Psychiatric: Mood and Affect: Mood normal. Behavior: Behavior normal. Thought Content: Thought content normal. Judgment: Judgment normal. Medications Scheduled: busPIRone, 15 mg, oral, BID donepeziL, 5 mg, oral, Nightly DULoxetine, 60 mg, oral, Daily [START ON 10/16/2023] heparin (porcine), 5,000 Units, subcutaneous, Q8H TEDDY lisinopriL, 10 mg, oral, Daily naloxone, , , pantoprazole, 40 mg, oral, QAM AC rosuvastatin, 10 mg, oral, Daily Infusions: dextrose 5 % in water, 100 mL/hr sodium chloride 0.9 %, 20 mL/hr sodium chloride 0.9 %, 50 mL/hr As Needed: acetaminophen dextrose dextrose 5 % in water dextrose 50 % in water (D50W) glucagon (human recombinant) ipratropium-albuteroL magnesium sulfate magnesium sulfate naloxone ondansetron ODT potassium chloride sodium chloride sodium chloride sodium chloride 0.9 % Allergies: Lyrica [pregabalin], Codeine, and Bactrim [sulfamethoxazole-trimethoprim] Labs Recent Results (from the past 24 hour(s)) CBC auto differential Collection Time: 10/14/23 10:20 PM Result Value Ref Range White Blood Cells 9.9 4.0 - 11.0 X10E9/L RBC count 3.95 3.80 - 5.20 X10E12/L Hemoglobin 10.9 (L) 11.7 - 15.5 g/dL Hematocrit 33.2 (L) 35 - 47 % MCV 84 80 - 100 fL MCH 27.7 27 - 34 pg MCHC 32.9 32 - 36 g/dL RDW 14.6 11.5 - 15.0 % Platelets 319 150 - 450 X10E9/L MPV 8.9 7 - 12 fL % neutrophils 57.6 % % lymphocytes 28.7 % % monocytes 8.1 % % eosinophils 4.9 % % Basophils 0.7 % Neutrophils Absolute (A) 5.7 1.5 - 6.6 X10E9/L Lymphocytes Absolute 2.8 1.0 - 3.5 X10E9/L Monocytes Absolute 0.8 0 - 0.9 X10E9/L Eosinophils Absolute 0.5 (H) 0.0 - 0.4 X10E9/L Basophils Absolute 0.1 0.0 - 0.2 X10E9/L Basic Metabolic Panel Collection Time: 10/14/23 10:20 PM Result Value Ref Range Sodium 139 134 - 146 mmol/L Potassium, Bld 3.1 (L) 3.5 - 5.0 mmol/L Chloride 107 98 - 109 mmol/L CO2 27 22 - 32 mmol/L Anion gap 5 5 - 15 mmol/L BUN 19 5 - 23 mg/dL Creatinine 2.56 (H) 0.40 - 1.00 mg/dL Glucose 95 65 - 99 mg/dL Calcium 8.1 (L) 8.5 - 10.5 mg/dL eGFR (CKD-EPI)non-race dependent 21 (L) >59 ml/min/1.73sq.m Magnesium Collection Time: 10/14/23 10:20 PM Result Value Ref Range Magnesium 1.8 1.8 - 2.6 mg/dL Troponin I, High Sensitivity Collection Time: 10/14/23 10:20 PM Result Value Ref Range Troponin I, High Sensitivity 39 (H) <16 ng/L B-type natriuretic peptide Collection Time: 10/14/23 10:20 PM Result Value Ref Range BNP 427 (H) <100.0 pg/mL Troponin I, High Sensitivity 1 Hour Collection Time: 10/14/23 11:36 PM Result Value Ref Range 1 Hour Trop I, High Sensitivity 39 (H) <16 ng/L Comprehensive metabolic panel Collection Time: 10/15/23 5:22 AM Result Value Ref Range Sodium 140 134 - 146 mmol/L Potassium, Bld 3.2 (L) 3.5 - 5.0 mmol/L Chloride 104 98 - 109 mmol/L CO2 26 22 - 32 mmol/L Anion gap 10 5 - 15 mmol/L BUN 20 5 - 23 mg/dL Creatinine 2.56 (H) 0.40 - 1.00 mg/dL Glucose 103 (H) 65 - 99 mg/dL Calcium 8.4 (L) 8.5 - 10.5 mg/dL Total Protein 5.6 (L) 6.0 - 8.0 g/dL Albumin 2.8 (L) 3.2 - 5.3 g/dL Alkaline Phosphatase 61 39 - 130 U/L AST 14 0 - 41 U/L ALT 10 0 - 31 U/L Total bilirubin 0.4 0.3 - 1.2 mg/dL eGFR (CKD-EPI)non-race dependent 21 (L) >59 ml/min/1.73sq.m Magnesium Collection Time: 10/15/23 5:22 AM Result Value Ref Range Magnesium 1.7 (L) 1.8 - 2.6 mg/dL CBC auto differential Collection Time: 10/15/23 5:22 AM Result Value Ref Range White Blood Cells 10.2 4.0 - 11.0 X10E9/L RBC count 3.59 (L) 3.80 - 5.20 X10E12/L Hemoglobin 10.0 (L) 11.7 - 15.5 g/dL Hematocrit 30.1 (L) 35 - 47 % MCV 84 80 - 100 fL MCH 27.7 27 - 34 pg MCHC 33.1 32 - 36 g/dL RDW 14.6 11.5 - 15.0 % Platelets 312 150 - 450 X10E9/L MPV 9.0 7 - 12 fL % neutrophils 66.8 % % lymphocytes 23.7 % % monocytes 5.5 % % eosinophils 3.3 % % Basophils 0.7 % Neutrophils Absolute (A) 6.8 (H) 1.5 - 6.6 X10E9/L Lymphocytes Absolute 2.4 1.0 - 3.5 X10E9/L Monocytes Absolute 0.6 0 - 0.9 X10E9/L Eosinophils Absolute 0.3 0.0 - 0.4 X10E9/L Basophils Absolute 0.1 0.0 - 0.2 X10E9/L Radiology X-ray chest 1 view Result Date: 10/14/2023 Narrative: Single view chest History: Difficulty breathing, shortness of breath Comparison: 01/01/2021 Impression: 1. Low lung volumes and hypoventilatory change, Central pulmonary vascular congestion without overt pulmonary edema. No sizable pleural effusion, no definite pneumothorax. 2. Borderline cardiomegaly. Finalized by Naren Morris MD on 10/14/2023 11:39 PM HOSPITAL PROBLEM LIST Principal Problem: ERIN (acute kidney injury) ([facility] Active Problems: Chronic obstructive pulmonary disease ([facility] Hypertension ADORE (obstructive sleep apnea) Hypokalemia Edema of both lower extremities Mixed hyperlipidemia ASSESSMENT & PLAN ERIN: Gentle hydration. Nephrology consult. Monitor kidney function daily. Edema both lower extremities: Monitor daily weight and I&O. Echocardiogram ordered. Nephrology consult help with diuresis/fluid balance. Hypokalemia: Supplement. pvc monitor. Monitor electrolytes daily replace per protocol. COPD: No acute exacerbation. Continue home inhalers and nebulizers. Obstructive sleep apnea: Noncompliant at home due to broken machine. Unable to get replace. Will order hospital machine while inpatient. Hypertension: Elevated on admission. Two doses labetalol in the emergency department. Hold home lisinopril due to kidney function. Continue hydralazine IV as needed blood pressures greater than 150. Hyperlipidemia: Continue home statin. Admission orders placed and home medications reconciled. DVT prophylaxis: EPC's and heparin subQ. GI prophylaxis. Protonix PT/OT to evaluate and treat. DC planning: Discharge home in 1-2 days. Appreciate Nephrology input. Antione Santa, [employer], 10/15/2023 8:35 AM [facility] 7AM-7PM (all facilities): EpicChat or page through [facility]. 7PM-7AM ([facility], [facility] and Inpatient Rehab): EpicChat or page, [phone]. 7PM-7AM ([place], [place], [place], [place] and [facility] Rehab): EpicChat or page through [facility]. Physician Attestation: I have reviewed the above note authored by the Advance Practice Provider (DEREK) including history, review of systems, physical examination, medical decision making and agree with the assessment & plan. I have personally performed a face to face diagnostic evaluation on this patient. I have reviewed all laboratory findings and imaging reports/films. I have independently evaluated the patient and repeated vázquez portions of the physical exam. I agree with the DEREK plan as above, unless otherwise noted. DRE JEWELL MD documented in this encounter [facility] [employer] [facility] 10-15-2023 Plan of care note Problem: Knowledge Deficit Goal: Patient/patient artists' booking representative demonstrates understanding of disease process, treatment plan, medications, and discharge instructions Description: INTERVENTIONS 1. Complete learning assessment and assess knowledge base 2. Provide teaching at level of understanding 3. Provide teaching via preferred learning method(s) Outcome: Progressing Note: Evaluation of progress towards goal: POC discussed with patient. Questions answered PRN. Problem: Discharge Planning Goal: Discharge to post-acute care, other facility, or home with appropriate resources Description: Patient's goal is: INTERVENTIONS 1. Conduct assessment to determine patient/family and health care team treatment goals, and need for post-acute services based on payer coverage, community resources, and patient preferences, and barriers to discharge 2. Coordinate with Social work, Care Navigation, and Utilization Review to arrange appropriate level of services according to patient's needs based on patient preference and payer coverage in collaboration with the physician and health care team 3. Address psychosocial, clinical, and financial barriers to discharge as identified in assessment in conjunction with the patient/family and health care team 4. Consult appropriate ancillary services (i.e.. PT/OT/ST, etc) as needed 5. Communicate with and update the patient/family, physician, and health care team regarding progress on the discharge plan 6. Identify discharge learning needs (meds, wound care, etc). 7. Arrange for needed discharge transportation as appropriate Outcome: Progressing Note: Evaluation of progress towards goal: Continue to assess for when appropriate. [facility] 10-15-2023 Plan of care note Problem: Pain Goal: Patient goal is pain score less than 4, able to rest, and participant in treatment plan as appropriate Description: INTERVENTIONS: 1. Encourage patient or legal artists' booking representative to report early pain and ask for pain medicine when needed 2. Assess pain using appropriate pain scale and include the scale used when documenting 3. Administer analgesics based on type and severity of pain and evaluate response within appropriate time frame 4. Implement non-pharmacological measures as appropriate and evaluate response 5. Consider cultural and social influences on pain and pain management 6. Notify LIP if interventions ineffective or patient reports new pain 7. Monitor vital signs including pulse ox, end-tidal CO2 based on pain intervention 8. Reassess pain per policy 9. Teach patient or legal artists' booking representative interventions for comforting Outcome: Progressing Note: Evaluation of progress towards goal: ongoing. Problem: Safety Goal: Patient will be injury free during hospitalization Description: INTERVENTIONS: 1. Assess patient's risk for falls and implement fall prevention plan of care per policy 2. Provide and maintain a safe environment 3. Proper use of double Identifiers 4. Medication administration using the 5 rights 5. Hand hygiene 6. Specimens are labeled at the bedside 7. Instruct patient/ patient artists' booking representative about use of safety devices 8. Include patient/ patient artists' booking representative in decisions related to safety Outcome: Progressing Note: Evaluation of progress towards goal: ongoing. Problem: Knowledge Deficit Goal: Patient/patient artists' booking representative demonstrates understanding of disease process, treatment plan, medications, and discharge instructions Description: INTERVENTIONS 1. Complete learning assessment and assess knowledge base 2. Provide teaching at level of understanding 3. Provide teaching via preferred learning method(s) Outcome: Progressing Note: Evaluation of progress towards goal: ongoing. [facility] 10-14-2023 Emergency department Triage note Bilateral hand/feet swelling, cough, headache [facility] 10-14-2023 Emergency department Note Bilateral hand/feet swelling, cough, headache Images from the original note were not included. History Chief Complaint Patient presents with Leg Swelling Arm Swelling Nausea Cough Initial evaluation performed at 10:[address] Elliott. Patient is a 58 y.o. female who presents to the ED for evaluation of leg swelling, right hand swelling, chest pain, nausea, and cough. Pt describes her chest pain as burning sensation. Pt reports experiencing fatigued and tired for the past couple of weeks. Pt reports history of sleep apnea. Pt states when she tries to sleep she is startled and wakes up. Pt states her CPAP machine had broke for a few months now. Pt reports informing her doctor about her CPAP machine but they have no replaced it. Pt is allergic to Lyrica, Codeine, and Bactrim. History provided by: Patient Leg Swelling Associated symptoms: fatigue Nausea Associated symptoms: chest pain, cough, fatigue and nausea Cough Associated symptoms: chest pain Problem List Items Addressed This Visit None Past Medical History: Diagnosis Date Anxiety Back pain [place] cervical cancer approx 1994 Cervical cancer [place]) Chest pain Cluster headache COPD (chronic obstructive pulmonary disease) [place] Degenerative arthritis Depression Dry mouth Emphysema Emphysema of lung [place] Fibromyalgia Fibromyalgia, primary GERD (gastroesophageal reflux disease) Heartburn Hypertension Joint pain Morbid obesity [place] Mouth sores MRSA (methicillin resistant Staphylococcus aureus) Nausea Obesity Osteoporosis PAD (peripheral artery disease) [place] PVD (peripheral vascular disease) [place] Sleep apnea cpap SOB (shortness of breath) Stiff muscles Swollen ankles Weakness Past Surgical History: Procedure Laterality Date ABDOMINAL SURGERY BILATERAL SI JOINT INJECTION #1 Bilateral 11/07/2016 Performed by Mony Klein MD at [facility] COLONOSCOPY N/A 10/14/2019 Performed by Eben Lindsay DO at [facility] Coronary angiogram and left ventricular gram/pressure N/A 11/18/2016 Performed by Bobby Stanton MD at [facility] CARDIAC CATH LABS HYSTERECTOMY 06/22/1998 INCISION AND DRAINAGE and irrigation w/Drain LEFT HAND and left elbow Left 11/16/2015 Performed by Kt Ann MD at [facility] TOE AMPUTATION Travel Screening No screening recorded since 10/13/23 2202 Travel History Travel since 09/13/23 No documented travel since 09/13/23 Family History Problem Relation Age of Onset Hypertension Mother Diabetes Mother Cataracts Mother Depression Mother Hypertension Father Heart disease Father Alcohol abuse Father Depression Father Cancer Sister Thyroid disease Sister Anxiety disorder Sister Depression Sister Glaucoma Son Social History Substance and Sexual Activity Drug Use Not Currently Types: Cocaine, Marijuana Comment: pt says not using anything, used cocaine last night Social History Tobacco Use Smoking status: Every Day Current packs/day: 1.00 Average packs/day: 1 pack/day for 44.0 years (44.0 ttl pk-yrs) Types: Cigarettes Smokeless tobacco: Never Vaping Use Vaping status: Never Used Substance Use Topics Alcohol use: Not Currently Drug use: Not Currently Types: Cocaine, Marijuana Comment: pt says not using anything, used cocaine last night Review of Systems Constitutional: Positive for fatigue. Respiratory: Positive for cough. Cardiovascular: Positive for chest pain/discomfort and leg swelling. Gastrointestinal: Positive for nausea. Physical Exam ED Triage Vitals Temp Pulse Resp BP SpO2 -- -- -- -- -- Temp src Heart Rate Source Patient Position BP Location FiO2 (%) -- -- -- -- -- There were no vitals filed for this visit. Physical Exam Vitals and nursing note reviewed. Constitutional: General: She is not in acute distress. Appearance: Normal appearance. She is not toxic-appearing. HENT: Head: Normocephalic and atraumatic. Eyes: Conjunctiva/sclera: Conjunctivae normal. Cardiovascular: Rate and Rhythm: Normal rate. Rhythm irregular. Heart sounds: Normal heart sounds. Comments: Trace edema in the right hand Pulmonary: Effort: Pulmonary effort is normal. Breath sounds: Normal breath sounds. Abdominal: General: There is no distension. Tenderness: There is no abdominal tenderness. Musculoskeletal: Comments: 1+ pitting edema in bilateral lower extremities. Skin: General: Skin is warm and dry. Neurological: Mental Status: She is alert and oriented to person, place, and time. Psychiatric: Mood and Affect: Mood normal. Behavior: Behavior normal. Procedure Procedures Re-Evaluation Re-Evaluation ED Course ED Course as of 10/15/23 0041 Sat Oct 14, 2023 2320 Pain Score: 8 [KM] ED Course User Index [KM] Alexis Elliott DO Clinical Impressions as of 10/15/23 0041 ERIN (acute kidney injury) ([facility] Hypertensive urgency Hypokalemia Elevated brain natriuretic peptide (BNP) level MDM Medical Decision Making Nanette Garcia (scribe) documented for Dr. Elliott. Chief Complaint: Leg swelling, arm swelling, nausea and a cough Differential Diagnosis includes but is not limited to: CHF exacerbation, hypertensive urgency, anemia, electrolyte derangement, PR. Plan of Care: Dr. Elliott ordered Troponin I high sensitivity with 1 hour, BMP, B-type natriuretic peptide, Magnesium, CBC, and EKG. Will give Apresoline. Labs notable for: CBC unremarkable, BMP significantly shows ERIN, with creatinine 2.56 (last creatinine was 2 years ago at 0.82) slightly elevated Troponin I at 39, and BNP elevated to 400. Imaging was independently viewed by Dr. Elliott and is notable for low lung volumes and hypoventilatory change, Central pulmonary vascular congestion without overt pulmonary edema. No sizable pleural effusion, no definite pneumothorax. In agreement with official radiologist read. 0000 -- I, Dr Cordero, have personally received sign out from Dr. Elliott. Patient is pending admission. 004 -- Niya Robles [facility] accepts patient under Dr Jewell. Patient to be admitted for hypertension urgency, ERIN, elevated BNP and hypokalemia. Amount and/or Complexity of Data Reviewed Labs: ordered. Radiology: ordered. ECG/medicine tests: ordered. Risk OTC drugs. Prescription drug management. Decision regarding hospitalization. RESULTS Labs: Labs Reviewed CBC WITH AUTO DIFFERENTIAL - Abnormal; Notable for the following components: Result Value Hemoglobin 10.9 (*) Hematocrit 33.2 (*) Eosinophils Absolute 0.5 (*) All other components within normal limits BASIC METABOLIC PANEL - Abnormal; Notable for the following components: Potassium, Bld 3.1 (*) Creatinine 2.56 (*) Calcium 8.1 (*) eGFR (CKD-EPI)non-race dependent 21 (*) All other components within normal limits TROPONIN I, HIGH SENSITIVITY - Abnormal; Notable for the following components: Troponin I, High Sensitivity 39 (*) All other components within normal limits TROP I, HIGH SENSITIVITY 1 HOUR - Abnormal; Notable for the following components: 1 Hour Trop I, High Sensitivity 39 (*) All other components within normal limits B-TYPE NATRIURETIC PEPTIDE - Abnormal; Notable for the following components: BNP 427 (*) All other components within normal limits MAGNESIUM COMPREHENSIVE METABOLIC PANEL MAGNESIUM CBC WITH AUTO DIFFERENTIAL Radiology: X-ray chest 1 view Result Date: 10/14/2023 Single view chest History: Difficulty breathing, shortness of breath Comparison: 01/01/2021 Impression: 1. Low lung volumes and hypoventilatory change, Central pulmonary vascular congestion without overt pulmonary edema. No sizable pleural effusion, no definite pneumothorax. 2. Borderline cardiomegaly. Finalized by Naren Morris MD on 10/14/2023 11:39 PM NURSING NOTES AND VITALS REVIEWED The nursing notes within the ED encounter and vital signs as below have been reviewed. BP 149/85 Pulse 58 Temp 36.5 C (97.7 F) (Oral) Resp 20 Ht 152.4 cm (5') Wt (!) 166 kg (366 lb) SpO2 98% BMI 71.48 kg/m --------- PROGRESS NOTES --------- The plan of care has been discussed with patient including today s results, in addition to providing specific details regarding counseling pertaining to the diagnosis and prognosis. All questions were answered at this time and they are agreeable with the plan ADDITIONAL PROVIDER NOTES At this time the patient has objective evidence of an acute process requiring hospitalization or inpatient management. Medication List None Diagnosis: 1. ERIN (acute kidney injury) ([facility] 2. Hypertensive urgency 3. Hypokalemia 4. Elevated brain natriuretic peptide (BNP) level Disposition: Patient's disposition: Admit Patient's condition is stable. Provider Statement By electronically signing this emergency patient record, the Emergency Physician/FERMENTER CHAMPAGNE/PA-C attests that all entries made into the electronic medical record by patrick Hall prior to the Physician/FERMENTER CHAMPAGNE/PA-C signature reflect an accurate accounting of the evaluation and care rendered by that Emergency Physician/FERMENTER CHAMPAGNE/PA-C. The Emergency Physician/FERMENTER CHAMPAGNE/PA-C assumes full responsibility for those entries. The Emergency Physician/FERMENTER CHAMPAGNE/PA-C also attests that any patient testing or treatment that was instituted by nursing staff in accordance to Emergency Department Preemptive Guidelines have been reviewed and unless so stated elsewhere in this patient chart, the Physician/FERMENTER CHAMPAGNE/PA-C agrees with the testing and care provided. No Additional Attestations Nanette Hernandez 10/14/23 2210 Nanette Hernandez 10/14/23 2234 Alexis Elliott DO 10/14/23 2237 Nanette Hernandez 10/14/23 2240 Nanette Hernandez 10/14/23 2326 Nanette Hernandez 10/14/23 2358 Gillian Cordero MD 10/15/23 0043 Alexis Elliott DO 10/15/23 0401 documented in this encounter [facility] 10-14-2023 Physician Emergency department Note Images from the original note were not included. History Chief Complaint Patient presents with Leg Swelling Arm Swelling Nausea Cough Initial evaluation performed at 10:[address] Elliott. Patient is a 58 y.o. female who presents to the ED for evaluation of leg swelling, right hand swelling, chest pain, nausea, and cough. Pt describes her chest pain as burning sensation. Pt reports experiencing fatigued and tired for the past couple of weeks. Pt reports history of sleep apnea. Pt states when she tries to sleep she is startled and wakes up. Pt states her CPAP machine had broke for a few months now. Pt reports informing her doctor about her CPAP machine but they have no replaced it. Pt is allergic to Lyrica, Codeine, and Bactrim. History provided by: Patient Leg Swelling Associated symptoms: fatigue Nausea Associated symptoms: chest pain, cough, fatigue and nausea Cough Associated symptoms: chest pain Problem List Items Addressed This Visit None Past Medical History: Diagnosis Date Anxiety Back pain Cancer [place] cervical cancer approx 1994 Cervical cancer [place]) Chest pain Cluster headache COPD (chronic obstructive pulmonary disease) [place] Degenerative arthritis Depression Dry mouth Emphysema Emphysema of lung [place] Fibromyalgia Fibromyalgia, primary GERD (gastroesophageal reflux disease) Heartburn Hypertension Joint pain Morbid obesity [place] Mouth sores MRSA (methicillin resistant Staphylococcus aureus) Nausea Obesity Osteoporosis PAD (peripheral artery disease) [place] PVD (peripheral vascular disease) [place] Sleep apnea cpap SOB (shortness of breath) Stiff muscles Swollen ankles Weakness Past Surgical History: Procedure Laterality Date ABDOMINAL SURGERY BILATERAL SI JOINT INJECTION #1 Bilateral 11/07/2016 Performed by Mony Klein MD at [facility] COLONOSCOPY N/A 10/14/2019 Performed by Eben Lindsay DO at [facility] Coronary angiogram and left ventricular gram/pressure N/A 11/18/2016 Performed by Bobby Stanton MD at [facility] CARDIAC CATH LABS HYSTERECTOMY 06/22/1998 INCISION AND DRAINAGE and irrigation w/Drain LEFT HAND and left elbow Left 11/16/2015 Performed by Kt Ann MD at [facility] TOE AMPUTATION Travel Screening No screening recorded since 10/13/23 2202 Travel History Travel since 09/13/23 No documented travel since 09/13/23 Family History Problem Relation Age of Onset Hypertension Mother Diabetes Mother Cataracts Mother Depression Mother Hypertension Father Heart disease Father Alcohol abuse Father Depression Father Cancer Sister Thyroid disease Sister Anxiety disorder Sister Depression Sister Glaucoma Son Social History Substance and Sexual Activity Drug Use Not Currently Types: Cocaine, Marijuana Comment: pt says not using anything, used cocaine last night Social History Tobacco Use Smoking status: Every Day Current packs/day: 1.00 Average packs/day: 1 pack/day for 44.0 years (44.0 ttl pk-yrs) Types: Cigarettes Smokeless tobacco: Never Vaping Use Vaping status: Never Used Substance Use Topics Alcohol use: Not Currently Drug use: Not Currently Types: Cocaine, Marijuana Comment: pt says not using anything, used cocaine last night Review of Systems Constitutional: Positive for fatigue. Respiratory: Positive for cough. Cardiovascular: Positive for chest pain/discomfort and leg swelling. Gastrointestinal: Positive for nausea. Physical Exam ED Triage Vitals Temp Pulse Resp BP SpO2 -- -- -- -- -- Temp src Heart Rate Source Patient Position BP Location FiO2 (%) -- -- -- -- -- There were no vitals filed for this visit. Physical Exam Vitals and nursing note reviewed. Constitutional: General: She is not in acute distress. Appearance: Normal appearance. She is not toxic-appearing. HENT: Head: Normocephalic and atraumatic. Eyes: Conjunctiva/sclera: Conjunctivae normal. Cardiovascular: Rate and Rhythm: Normal rate. Rhythm irregular. Heart sounds: Normal heart sounds. Comments: Trace edema in the right hand Pulmonary: Effort: Pulmonary effort is normal. Breath sounds: Normal breath sounds. Abdominal: General: There is no distension. Tenderness: There is no abdominal tenderness. Musculoskeletal: Comments: 1+ pitting edema in bilateral lower extremities. Skin: General: Skin is warm and dry. Neurological: Mental Status: She is alert and oriented to person, place, and time. Psychiatric: Mood and Affect: Mood normal. Behavior: Behavior normal. Procedure Procedures Re-Evaluation Re-Evaluation ED Course ED Course as of 10/15/23 0041 Sat Oct 14, 2023 2320 Pain Score: 8 [KM] ED Course User Index [KM] Alexis Elliott DO Clinical Impressions as of 10/15/23 0041 ERIN (acute kidney injury) ([facility] Hypertensive urgency Hypokalemia Elevated brain natriuretic peptide (BNP) level MDM Medical Decision Making Nanette Garcia (scribe) documented for Dr. Elliott. Chief Complaint: Leg swelling, arm swelling, nausea and a cough Differential Diagnosis includes but is not limited to: CHF exacerbation, hypertensive urgency, anemia, electrolyte derangement, PR. Plan of Care: Dr. Elliott ordered Troponin I high sensitivity with 1 hour, BMP, B-type natriuretic peptide, Magnesium, CBC, and EKG. Will give Apresoline. Labs notable for: CBC unremarkable, BMP significantly shows ERIN, with creatinine 2.56 (last creatinine was 2 years ago at 0.82) slightly elevated Troponin I at 39, and BNP elevated to 400. Imaging was independently viewed by Dr. Elliott and is notable for low lung volumes and hypoventilatory change, Central pulmonary vascular congestion without overt pulmonary edema. No sizable pleural effusion, no definite pneumothorax. In agreement with official radiologist read. 0000 -- I, Dr Cordero, have personally received sign out from Dr. Elliott. Patient is pending admission. 004 -- Niya Robles [facility] accepts patient under Dr Best. Patient to be admitted for hypertension urgency, ERIN, elevated BNP and hypokalemia. Amount and/or Complexity of Data Reviewed Labs: ordered. Radiology: ordered. ECG/medicine tests: ordered. Risk OTC drugs. Prescription drug management. Decision regarding hospitalization. RESULTS Labs: Labs Reviewed CBC WITH AUTO DIFFERENTIAL - Abnormal; Notable for the following components: Result Value Hemoglobin 10.9 (*) Hematocrit 33.2 (*) Eosinophils Absolute 0.5 (*) All other components within normal limits BASIC METABOLIC PANEL - Abnormal; Notable for the following components: Potassium, Bld 3.1 (*) Creatinine 2.56 (*) Calcium 8.1 (*) eGFR (CKD-EPI)non-race dependent 21 (*) All other components within normal limits TROPONIN I, HIGH SENSITIVITY - Abnormal; Notable for the following components: Troponin I, High Sensitivity 39 (*) All other components within normal limits TROP I, HIGH SENSITIVITY 1 HOUR - Abnormal; Notable for the following components: 1 Hour Trop I, High Sensitivity 39 (*) All other components within normal limits B-TYPE NATRIURETIC PEPTIDE - Abnormal; Notable for the following components: BNP 427 (*) All other components within normal limits MAGNESIUM COMPREHENSIVE METABOLIC PANEL MAGNESIUM CBC WITH AUTO DIFFERENTIAL Radiology: X-ray chest 1 view Result Date: 10/14/2023 Single view chest History: Difficulty breathing, shortness of breath Comparison: 01/01/2021 Impression: 1. Low lung volumes and hypoventilatory change, Central pulmonary vascular congestion without overt pulmonary edema. No sizable pleural effusion, no definite pneumothorax. 2. Borderline cardiomegaly. Finalized by Naren Morris MD on 10/14/2023 11:39 PM NURSING NOTES AND VITALS REVIEWED The nursing notes within the ED encounter and vital signs as below have been reviewed. BP 149/85 Pulse 58 Temp 36.5 C (97.7 F) (Oral) Resp 20 Ht 152.4 cm (5') Wt (!) 166 kg (366 lb) SpO2 98% BMI 71.48 kg/m --------- PROGRESS NOTES --------- The plan of care has been discussed with patient including today s results, in addition to providing specific details regarding counseling pertaining to the diagnosis and prognosis. All questions were answered at this time and they are agreeable with the plan ADDITIONAL PROVIDER NOTES At this time the patient has objective evidence of an acute process requiring hospitalization or inpatient management. Medication List None Diagnosis: 1. ERIN (acute kidney injury) ([facility] 2. Hypertensive urgency 3. Hypokalemia 4. Elevated brain natriuretic peptide (BNP) level Disposition: Patient's disposition: Admit Patient's condition is stable. Provider Statement By electronically signing this emergency patient record, the Emergency Physician/FERMENTER CHAMPAGNE/PA-C attests that all entries made into the electronic medical record by patrick Hall prior to the Physician/FERMENTER CHAMPAGNE/PA-C signature reflect an accurate accounting of the evaluation and care rendered by that Emergency Physician/FERMENTER CHAMPAGNE/PA-C. The Emergency Physician/FERMENTER CHAMPAGNE/PA-C assumes full responsibility for those entries. The Emergency Physician/FERMENTER CHAMPAGNE/PA-C also attests that any patient testing or treatment that was instituted by nursing staff in accordance to Emergency Department Preemptive Guidelines have been reviewed and unless so stated elsewhere in this patient chart, the Physician/FERMENTER CHAMPAGNE/PA-C agrees with the testing and care provided. No Additional Attestations Nanette Tariqmez 10/14/23 2210 Nanette David 10/14/23 2234 Alexis Elliott DO 10/14/23 2237 Nanette Hernandez 10/14/23 2240 Nanette Tariqmez 10/14/23 2326 Nanette David 10/14/23 2358 Gillian Cordero MD 10/15/23 0043 Alexis Elliott DO 10/15/23 0401 [employer] Work Phone: 02-09-2022 Note PROCEDURE: XR ANKLE RT MIN [...] LO [place]STA Date: 2022-02-09 06:[address] [facility] 02-09-2022 Note PROCEDURE: XR ANKLE RT [...] LO [place]STA Date: 2022-02-09 06:[address] [facility] Evaluation note Includes: Assessments for all patient encountersNo Assessments Recorded [facility] Work Phone: Evaluation note Diagnosis ARSH (generalized anxiety disorder) (CMS/HCC) Generalized anxiety disorder documented in this encounter [facility]* Diagnosis Chronic obstructive pulmonary disease with acute exacerbation ([facility])- Primary Chronic rhinitis Bipolar depression ([facility]) Bipolar I disorder, most recent episode (or current) depressed, unspecified ADORE (obstructive sleep apnea) Obstructive sleep apnea (adult) (pediatric) Pulmonary emphysema, unspecified emphysema type ([facility]) documented in this encounter [facility]* Diagnosis ERIN (acute kidney injury) [place] Primary ERIN (acute kidney injury) [place] Hypertensive urgency Hypokalemia Hypopotassemia Elevated brain natriuretic peptide (BNP) level Chronic obstructive pulmonary disease ([facility]) Hypertension Unspecified essential hypertension Hypokalemia Hypopotassemia ADORE (obstructive sleep apnea) Obstructive sleep apnea (adult) (pediatric) Edema of both lower extremities Mixed hyperlipidemia Abnormal fasting glucose LUTHER (iron deficiency anemia) Unspecified iron deficiency anemia Bipolar depression ([facility]) Bipolar I disorder, most recent episode (or current) depressed, unspecified 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, psychotic disturbance, mood disturbance, or anxiety [place] Iron deficiency anemia secondary to inadequate dietary iron intake B12 deficiency [facility] 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- Primary [facility] Diagnosis 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- Primary [facility] Diagnosis 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- Primary [facility] Diagnosis ERIN (acute kidney injury) [place] Primary 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 ([facility] Hypovitaminosis D Unspecified vitamin D deficiency Hypomagnesemia Disorders of magnesium metabolism Primary hypertension Unspecified essential hypertension Nephrotic range proteinuria Proteinuria [facility] Narr[facility] History of Present Illness not supported for this document type No History of Present Illness RecordedHealth [facility] Work Phone: Instructions Instructions not supported for this document type No Instructions Record[facility]Health [facility] Work Phone: InstructionsNot on filedocumented in this encounter [facility] filed[facility] in this encounter [facility]ructionsNot on filedocumented in this encounter [facility]ructionsNot on filedocumented in this encounter [facility]ructionsNot on filedocumented in this encounter [facility]ructionsNot on filedocumented in this encounter [facility]ructionsNot on filedocumented in this encounter [facility] problem outcome Narrative Includes: Evaluations & Outcomes for active Goals No Outcomes RecordedHealth [facility] Work Phone: reason for referral (narrative)* Consultation (Routine) - Pending Review Specialty Diagnoses / Procedures Referred By Contdawood t Referred To Contact Pulmonary Disease Diagnoses Chronic obstructive pulmonary disease with acute exacerbation (CMS/HCC) ADORE (obstructive sleep apnea) Pulmonary emphysema, unspecified emphysema type (CMS/HCC) Procedures [place] OFFICE/OUTPATIENT NEW HIGH MDM 60 MINUTES Erica Pompa NP [address] [place] [phone] Referral ID Status Reason Start Date Expiration Date Visits Requested Visits Authorized [id number] Pending Review Specialty Services Required 01/31/2024 07/29/2024 1 1 [facility] Narrative - Reported Review of Systems not supported for this document type No Review of Systems RecordedHealth [facility] Work Phone: History of Past Illness Name [...] FoundDocuments on File Type Date Recorded Patient Health Safety And Environment Manager Expl anation ACP-Advance Directive ACP-Power of Hvac Controls Technician Documents on File Type Date Recorded Patient Health Safety And Environment Manager Expl anation Durable Power of Hvac Controls Technician 01/12/2021 1:47 PM Living Will 01/12/2021 1:47 PM DNR Physician Order 01/12/2021 1:47 PM Date Activated Date Inactivated Comments 10/15/2023 8:24 AM Date Activated Date Inactivated Comments 12/30/2020 12:36 PM 01/02/2021 4:30 PM Date Activated Date Inactivated Comments 12/25/2020 3:50 PM 12/30/2020 12:36 PM Date Activated Date Inactivated Comments 10/08/2020 1:02 PM 10/08/2020 6:57 PM Date Activated Date Inactivated Comments 01/22/2019 7:15 PM 02/06/2019 6:43 PM Date Activated Date Inactivated Comments 10/19/2023 [...] section and content) DATE CREATED AUTHOR 10/23/2017 [facility] DATE CREATED AUTHOR AUTHOR'S ORGANIZ ATION 08/01/2018 [facility] DATE CREATED AUTHOR AUTHOR'S ORGANIZ ATION 08/11/2018 [facility] DATE CREATED AUTHOR AUTHOR'S ORGANIZ ATION 01/23/2020 [facility] DATE CREATED AUTHOR AUTHOR'S ORGANIZ ATION 04/19/2022 [facility] DATE CREATED AUTHOR AUTHOR'S ORGANIZ ATION 01/14/2024 [facility] DATE CREATED AUTHOR AUTHOR'S ORGANIZ ATION 01/23/2024 [facility] DATE CREATED AUTHOR AUTHOR'S ORGANIZ ATION 02/02/2024 [facility] DATE CREATED AUTHOR AUTHOR'S ORGANIZ ATION 12/08/2024 [facility] Reason for Visit (unrecogniz ed section and content) Reason Onset Date Comments Med Refill 01/29/2024 Reason Comments Cough Reason Comments Leg Swelling Arm Swelling Nausea Cough Specialty Diagnoses / Procedures Referred By Contac t Referred To Contact Diagnoses Hypokalemia Chest pain ERIN (acute kidney injury) ([facility]) Hypertensive urgency Elevated brain natriuretic peptide (BNP) level Dre Jewell MD [address], [place] [address] Referral ID Status Reason Start Date Expiration Date Visits Re quested Visits Authorized [id number] 1 1 Reason Comments Outpatient Infusion [facility] Specialty Diagnoses / Procedures Referred By Juan fonseca Referred To Contact Diagnoses 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 Procedures INJECTION,RITUXIMAB-PVVR,BI OSIMILAR,(RUXIENCE),10MG INJECTION, RITUXIMAB-ABBS,BIOSIMILAR,( TRUXIMA),10MG Wanda Mendez MD [address] [place] [address] [facility] [address] [place] [address] Referral ID Status Reason Start Date Expiration Date V isits Requested Visits Authorized [id number] Authorized 11/13/2023 11/09/2024 1 4 Reason Comments Med Refill Care Teams (unrecognized sec tion and content) Chief Wellness Officer Relationship Specialty Start Date End Date Vu Rivera MD [address] [place] [phone] PCP - General Family Medicine 12/12/23 Erica Pompa NP [address] [place] [phone] Nurse Practitioner Family Medicine 12/12/23 Chief Wellness Officer Relationship Specialty Start Date End Date Vu Rivera MD [address] [place] [phone] PCP - General Family Medicine 12/12/23 Erica Pompa NP [address] [place] [phone] Nurse Practitioner Family Medicine 12/12/23 Chief Wellness Officer Relationship Specialty Start Date End Date Vu Rivera MD [address] [place] [address] PCP - General Family Medicine 12/12/23 Erica Pompa NP [address] [place] [address] Nurse Practitioner Family Medicine 12/12/23 Chief Wellness Officer Relationship Specialty Start Date End Date Pcp, [place] [address] PCP - General Family Medicine 10/14/23 Chief Wellness Officer Relationship Specialty Start Date End Date Shawn Zamora MD [address] [place] [id number] PCP - General Family Medicine 10/19/23 Chief Wellness Officer Relationship Specialty Start Date End Date Shawn Zamora MD [address] [place] [id number] PCP - General Family Medicine 10/19/23 Chief Wellness Officer Relationship Specialty Start Date End Date Shawn Zamora MD [address] [place] [id number] PCP - General Family Medicine 10/19/23 Chief Wellness Officer Relationship Specialty Start Date End Date Shawn Zamora MD [address] [place] [id number] PCP - General Family Medicine 10/19/23 Chief Wellness Officer Relationship Specialty Start Date End Date Shawn Zamora MD [address] [place] [id number] PCP - General Family Medicine 10/19/23 Chief Wellness Officer Relationship Specialty Start Date End Date Shawn Zamora MD [address] [place] [id number] PCP - General Family Medicine 10/19/23 Chief Wellness Officer Relationship Specialty Start Date End Date Shawn Zamora MD [address] [place] [address] PCP - General Family Medicine 10/19/23 Scheduled Active and Recently Administ ered Medications (unrecognized section and content) Medication Order 10/16/2023 10/17/2023 10/18/2023 busPIRone (BUSPAR) tablet 15 mg 15 mg, oral, 2 times daily, First dose on 10/15/23 at 0900, Look-alike/sound-alike medication - verify indication for use. Avoid grapefruit juice. 0907 (Given - Provider: Saul Gates RN)2250 (Given - Provider: Sara Zapata RN) 0832 (Given - Provider: Leda Patricia, GAMAL)2209 (Given - Provider: Emily Strickland RN) 0836 (Given - Provider: Shelby Lee, GAMAL)2028 (Given - Provider: Shannon Becerril, GAMAL) cyanocobalamin (VITAMIN B-12) injection 1,000 mcg (COMPLETED) 1,000 mcg, intramuscular, Once, On Mon10/16/23 at 1530, For 1 dose 1532 (Given - Provider: Saul Gates RN) cyanocobalamin tablet 1,000 mcg 1,000 mcg, oral, Daily, First dose on Mon10/16/23 at 1530 1532 (Given - Provider: Saul Gates RN) 0832 (Given - Provider: Leda Patricia, GAMAL) 0836 (Given - Provider: Shelby Lee, GAMAL) donepeziL (ARICEPT) tablet 5 mg 5 mg, oral, Nightly, First dose on 10/15/23 at 2200, Look-alike/sound-alike medication - verify indication for use. 2250 (Given - Provider: Sara Zapata RN) 2208 (Given - Provider: Emily Strickland RN) 2027 (Given - Provider: Shannon Becerril RN) DULoxetine (CYMBALTA) DR capsule 60 mg 60 mg, oral, Daily, First dose on Mon10/15/23 at 0900, Look-alike/sound-alike medication - verify indication for use. Swallow whole-do not crush or chew. Although the supervisor instrument repair does not recommend opening the capsule to facilitate administration, the contents of capsule may be sprinkled on applesauce or in apple juice and swallowed (without chewing) immediately; do not sprinkle contents on chocolate pudding. 09 (Given - Provider: Saul Gates RN) 0831 (Given - Provider: Leda Patricia, GAMAL) 0836 (Given - Provider: Shelby Lee, RN) ferrous sulfate tablet 325 mg 325 mg, oral, Daily with breakfast, First dose on Mon10/16/23 at 0800, Give ferrous sulfate 2 hours before or 4 hours after antacids. 09 (Given - Provider: Saul Gates RN) 08 (Given - Provider: Leda Patricia, GAMAL) 08 (Given - Provider: Shelby Lee, GAMAL) ferumoxytoL (FERAHEME) 510 mg in sodium chloride 0.9 % 100 mL IVPB (COMPLETED) 510 mg, intravenous, at 234 mL/hr, Administer over 30 Minutes, Once, On Mon10/16/23 at 1530, For 1 dose, Patient in reclined or semi-reclined position. Monitor for at least 30 min after infusion. AVOID the use of H1 antihistamines, such as diphenhydramine, as this may worsen hypersensitivity reactions., Indications: iron deficiency anemia 1539 (New Bag - Provider: Saul Gates RN)1609 (Stop Bag - Provider: Saul Gates RN) furosemide (LASIX) injection 60 mg (CANCELED) 60 mg, intravenous, Every 8 hours scheduled, First dose on Mon10/15/23 at 1030, Look-alike/sound-alike medication - verify indication for use. IVP rate = 20 mg/min 0600 (Given - Provider: Leola Friend RN)1400 (Canceled Entry - Provider: Saul Gates RN) furosemide (LASIX) injection 80 mg 80 mg, intravenous, Every 8 hours scheduled, First dose (after last modification) on Mon10/16/23 at 2200, Look-alike/sound-alike medication - verify indication for use. IVP rate = 20 mg/min 2242 (Given - Provider: Sara Zapata RN) 0633 (Given - Provider: Sara Zapata RN)1409 (Given - Provider: Leda Patricia, RN)2211 (Given - Provider: Emily Strickland, RN) 0524 (Given - Provider: Emily Strickland RN)1318 (Given - Provider: Shelby Lee, GAMAL)2027 (Given - Provider: Shannon Becerril RN) heparin (porcine) injection 5,000 Units (CANCELED) 5,000 Units, subcutaneous, Every 8 hours scheduled, First dose on Mon10/16/23 at 0600, Notify prescriber if INR greater than 1.9, hemoglobin less than 10 mg/dL, aPTT greater than 40 seconds, and/or platelet count less than 100,000/mm Look-alike/sound-alike medication - verify indication for use. Observe for bleeding. 0556 (Given - Provider: Leola Friend RN)1336 (Given - Provider: Saul Gates RN)2252 (Given - Provider: Sara Zapata RN) 0636 (Given - Provider: Sara Zapata RN)1408 (Given - Provider: Leda Patricia, GAMAL)221 (Given - Provider: Emily Strickland RN) 0524 (Given - Provider: Emily Strickland RN)1318 (Given - Provider: Shelby Lee, GAMAL) hydrALAZINE (APRESOLINE) tablet 100 mg 100 mg, oral, Every 8 hours scheduled, First dose (after last modification) on Mon10/16/23 at 2200, Hold for systolic blood pressure less than 110 Look-alike/sound-alike medication - verify indication for use. 2250 (Given - Provider: Sara Zapata RN) 0632 (Given - Provider: Sara Zapata RN)1408 (Given - Provider: Leda Patricia, GAMAL)2209 (Given - Provider: Emily Strickland RN) 0600 (Not Given - Provider: Emily Strickland RN - Reason: Order parameters not met - Comment: BP: 111/60. Told to hold by Angelina HUANG)1318 (Given - Provider: Shelby Lee RN)2145 (Given - Provider: Shannon Becerril, GAMAL) hydrALAZINE (APRESOLINE) tablet 50 mg (CANCELED) 50 mg, oral, Every 8 hours scheduled, First dose on Mon10/15/23 at 1030, Hold for systolic blood pressure less than 110 Look-alike/sound-alike medication - verify indication for use. 0556 (Given - Provider: Leola Friend RN)1336 (Given - Provider: Saul Gates RN) magnesium oxide (MAGOX) tablet 400 mg 400 mg, oral, 2 times daily, First dose on Mon10/15/23 at 1030 0907 (Given - Provider: Saul Gates RN)2250 (Given - Provider: Sara Zapata RN) 0831 (Given - Provider: Leda Patricia, GAMAL)220 (Given - Provider: Emily Strickland, GAMAL) 0836 (Given - Provider: Shelby Lee RN)2028 (Given - Provider: Shannon Becerril RN) methylPREDNISolone sod suc (PF) (Solu-MEDROL) 1,000 mg in sodium chloride 0.9 % 50 mL IVPB 1,000 mg, intravenous, at 58 mL/hr, Administer over 60 Minutes, Every 24 hours scheduled, First dose on Mon10/18/23 at 1400, For 3 doses, May alter blood glucose or insulin requirements. Look-alike/sound-alike medication - verify indication for use. 1333 (New Bag - Provider: Shelby Lee RN)1342 (Rate/Dose Verify - Provider: Shelby Lee RN)1433 (Stop Bag - Provider: Shelby Lee RN) metoprolol tartrate (LOPRESSOR) tablet 25 mg 25 mg, oral, 2 times daily, First dose on Mon10/17/23 at 0900, Look-alike/sound-alike medication - verify indication for use. 0831 (Given - Provider: Leda Patricia RN)221 (Given - Provider: Emily Strickland RN) 0836 (Given - Provider: Shelby Lee RN)2027 (Given - Provider: Shannon Becerril RN) pantoprazole (PROTONIX) EC tablet 40 mg 40 mg, oral, Every morning before breakfast, First dose on Mon10/15/23 at 0700, Look-alike/sound-alike medication - verify indication for use. If patient is receiving enteral feeding, consider alternative PPI or continue IV pantoprazole until the delayed-release tablet can be taken orally, Indication: GERD 0555 (Given - Provider: Leola Friend RN)0700 (Canceled Entry - Provider: Leola Friend RN) 0633 (Given - Provider: Sara Zapata RN) 0525 (Given - Provider: Emily Strickland RN) potassium chloride (KLOR-CON M 20) CR tablet 20 mEq 20 mEq, oral, 3 times daily, First dose on Mon10/15/23 at 1400, Hold for potassium more than 4.5 Do not crush or chew. 0556 (Given - Provider: Leola Friend RN)1400 (Not Given - Provider: Saul Gates RN - Reason: Order parameters not met)2250 (Given - Provider: Sara Zapata RN) 0632 (Given - Provider: Sara Zapata RN)1408 (Given - Provider: Leda Patricia, GAMAL)2210 (Given - Provider: Emily Strickland RN) 0524 (Given - Provider: Emily tSrickland RN)1318 (Given - Provider: Shelby Lee, GAMAL)2028 (Given - Provider: Shannon Becerril RN) rosuvastatin (CRESTOR) tablet 10 mg 10 mg, oral, Daily, First dose on Mon10/15/23 at 0900, Look-alike/sound-alike medication - verify indication for use. 0909 (Given - Provider: Saul Gates RN) 0832 (Given - Provider: Leda Patricia, GAMAL) 0837 (Given - Provider: Shelby Lee, GAMAL) spironolactone (ALDACTONE) tablet 25 mg (CANCELED) 25 mg, oral, Daily, First dose on Mon10/16/23 at 1445, Hold for potassium level greater than 4.4 1532 (Not Given - Provider: Saul Gates RN - Reason: Order parameters not met - Comment: K+ 4.8) 0831 (Given - Provider: Leda Patricia RN) spironolactone (ALDACTONE) tablet 25 mg 25 mg, oral, Every 12 hours scheduled, First dose (after last modification) on Mon10/17/23 at 2100, Hold for potassium level greater than 4.4 2210 (Given - Provider: Emily Strickland RN) 0837 (Given - Provider: Shelby Lee, RN)2027 (Given - Provider: Shannon Becerril, RN) PRN Medication Order 10/16/2023 10/17/2023 10/18/2023 acetaminophen (TYLENOL) tablet 650 mg 650 mg, oral, Every 6 hours PRN, mild pain - pain scale 1-3, headaches, temperature greater than 38 C, Starting on Mon10/15/23 at 0211 0230 (Given - Provider: Brooke Kulkarni RN) 222 (Given - Provider: Emily Strickland RN) 0525 (Given - Provider: Emily Strickland RN)214 (Given - Provider: Shannon Becerril RN) calcium gluconate 3,000 mg in sodium chloride 0.9 % 100 mL IVPB 3,000 mg, intravenous, at 43.3 mL/hr, Administer over 3 Hours, As needed, ionized calcium 3.5 to 3.9 mg/dL, Starting on Mon10/15/23 at 1021, IV Administration of calcium via a central or deep vein preferred. Avoid administration in small hand veins VESICANT (RED) calcium gluconate 4,000 mg in sodium chloride 0.9 % 250 mL IVPB 4,000 mg, intravenous, at 72.5 mL/hr, Administer over 4 Hours, As needed, ionized calcium 3.4 mg/dL or less, Starting on 10/15/23 at 1021, IV administration of calcium via a central or deep vein is preferred. Avoid administration in small hand veins. VESICANT (RED) calcium gluconate IVPB 2000 mg/100 mL (20 mg/mL premix) 2,000 mg, intravenous, at 50 mL/hr, Administer over 2 Hours, As needed, ionized calcium 4 to 4.3 mg/dL, Starting on 10/15/23 at 1021, IV Administration of calcium via a central or deep vein preferred. Avoid administration in small hand veins VESICANT (RED) dextrose (GLUTOSE) 40 % gel 15 g 15 g, oral, As needed, low blood sugar, blood glucose less than 70 mg/dL, Starting on Mon10/15/23 at 0208, If patient conscious and taking PO. If blood glucose is not greater than 70 mg/dL after initial treatment, repeat treatment. dextrose 5 % (D5W) infusion 100 mL/hr, intravenous, Continuous PRN, blood glucose less than 70 mg/dL, Starting on Mon10/15/23 at 0208, Use immediately following dextrose 50% or glucagon treatment for patients who are unconscious or NPO. Contact prescriber for additional orders. If blood glucose is not greater than 70 mg/dL after initial treatment, repeat treatment. 0619 (Rate/Dose Verify - Provider: Leola Friend, GAMAL)0712 (Stop Bag - Provider: Saul Gates RN) dextrose 50 % in water (D50W) 50% solution 25 mL 25 mL, intravenous, As needed, low blood sugar, blood glucose less than 70 mg/dL and unconscious or NPO with IV access, Starting on Mon10/15/23 at 0208, Push over 1-3 minutes STAT. If conscious and not NPO, immediately follow with meal tray or high protein (7 grams) snack if tray not available. If NPO, initiate 5% dextrose in water at 100 mL/hr and contact prescriber for additional orders. If blood glucose is not greater than 70 mg/dL after initial treatment, repeat treatment. VESICANT (RED) Warning: HYPERTONIC solution. glucagon HCL injection 1 mg 1 mg, intramuscular, As needed, low blood sugar, blood glucose less than 70 mg/dL and unconscious or NPO without IV access., Starting on Mon10/15/23 at 0208, If conscious and not NPO, immediately follow with meal tray or high protein (7Grams) snack if tray not available. If NPO, initiate IV 5% Dextrose/Water at 100 mL/hr and contact prescriber for additional orders. If blood glucose is not greater than 70 mg/dL after initial treatment, repeat treatment. hydrALAZINE (APRESOLINE) injection 10 mg 10 mg, intravenous, Every 4 hours PRN, high blood pressure, ckc=[phone], Starting on Mon10/15/23 at 1020, Look-alike/sound-alike medication - verify indication for use. Administer IV doses as a slow IV push; maximum rate: 5 mg/minute. 0355 (Given - Provider: Emily Strickland RN) hydrALAZINE (APRESOLINE) injection 20 mg 20 mg, intravenous, Every 4 hours PRN, high blood pressure, sbp>180, Starting on Mon10/15/23 at 1020, Look-alike/sound-alike medication - verify indication for use. Administer IV doses as a slow IV push; maximum rate: 5 mg/minute. 1624 (Given - Provider: Shelby Lee RN) ipratropium-albuteroL (DUONEB) 0.5 mg-3 mg(2.5 mg base)/3 mL nebulizer solution 3 mL 3 mL, nebulization, Every 4 hours PRN, wheezing, shortness of breath, Starting on Mon10/15/23 at 0706, Implement INPATIENT/ED Bronchodilator Clinical Practice Guidelines? Yes, Document: [email or web address] \[email or web address]_Reference\Orders\Re spiratory Care Guidelines\CPG Bronchodilator 2020.pdf 0702 (Not Given - Provider: Jessica Koehler RCP - Reason: Patient/family refused - Comment: Patient denies need for prn neb at this time.)1221 (Given - Provider: Jessica Koehler RCP) 1119 (Given - Provider: Jessica Koehler RCP)2038 (Given - Provider: Romelia Miller RCP) 1023 (Given - Provider: Jessica Koehler RCP)2148 (Given - Provider: Romelia Miller RCP) kit for prep of Ho-50t-klonocj 2.5 mg recon soln 5 millicurie (COMPLETED) 5 millicurie, intravenous, Once in imaging, contrast, Radiopharmaceutical, Starting on Mon10/17/23 at 0744, For 1 dose 0810 (Given - Provider: Adalgisa Murphy) labetaloL (NORMODYNE,TRANDATE) injection 10 mg 10 mg, intravenous, Every 4 hours PRN, high blood pressure, Systolic blood pressure more than 160 hold for heart rate less than 60, Starting on Mon10/15/23 at 1021, Look-alike/sound-alike medication - verify indication for use. magnesium sulfate IVPB 2000 mg/50 mL in iso-osmotic water (40 mg/mL premix) 2,000 mg, intravenous, at 25 mL/hr, Administer over 120 Minutes, As needed, Magnesium level 1.7 to 1.9 mg/dL, or Ionized Magnesium level 0.45 to 0.5 mmol/L., Starting on 10/15/23 at 0208, Recheck magnesium level 4 hours after infusion complete. With each magnesium result continue the replacement orders as needed. magnesium sulfate IVPB 4000 mg/100 mL in iso-osmotic water (40 mg/mL premix) 4,000 mg, intravenous, at 25 mL/hr, Administer over 240 Minutes, As needed, Magnesium level 1.6 mg/dL or less, or Ionized Magnesium level 0.44 mmol/L or less, Starting on 10/15/23 at 0208, Recheck magnesium level 4 hours after infusion complete. With each magnesium result continue the replacement orders as needed. ondansetron ODT (ZOFRAN ODT) disintegrating tablet 4 mg 4 mg, oral, Every 6 hours PRN, nausea, vomiting, Starting on 10/15/23 at 0211 0752 (Given - Provider: Shelby Lee RN) potassium chloride (KLOR-CON M 20) CR tablet 20-60 mEq 20-60 mEq, oral, As needed, potassium supplementation, Starting on 10/15/23 at 1021, Progress to oral potassium replacement when patient tolerating oral intake. If dose administered, recheck potassium level 4 hours after last dose. For potassium level 3.4 to 3.7 mmol/L =20 mEq. For potassium level 3.1 to 3.3 mmol/L =40 mEq. For potassium level 3 mmol/L or less =60 mEq. Do not crush or chew. 0644 (Given - Provider: Brooke Kulkarni RN)0900 (Not Given - Provider: Saul Gates RN - Reason: Other - Comment: was given earlier) 0830 (Given - Provider: Leda Patricia RN) sod phos di, mono-K phos mono (K-PHOS NEUTRAL) 250 mg tablet 2 tablet(Linked Group 1) 2 tablet, oral, As needed, for phosphorus level 2.3 mg/dL or less. Do not administer if potassium is more than 4.5, Starting on [place] 10/15/23 at 1021, If dose administered, recheck phosphorus level 4 hours after last dose. Look-alike/sound-alike medication - verify indication for use. Give with a full glass of water. sodium chloride 0.9 % flush 10 mL (COMPLETED) 10 mL, intravenous, Once in imaging, line care, Nuclear Medicine, Starting on Mon10/17/23 at 0744, For 1 dose 0810 (Given - Provider: Adalgisa Murphy) sodium chloride 0.9 % flush 3 mL 3 mL, intravenous, As needed, line care, before and after each intermittent use, Starting on 10/14/23 at 2218 sodium chloride 0.9 % flush bag 25 mL, intravenous, at 100 mL/hr, Administer over 15 Minutes, As needed, line care, line care after IVPB administration, Starting on [place] 10/15/23 at 0208 1331 (New Bag - Provider: Shelby Lee RN)1333 (Stop Bag - Provider: Shelby Lee RN)1433 (Restarted - Provider: Shelby Lee, RN)1453 (Stop Bag - Provider: Shelby Lee, RN) sodium chloride 0.9 % infusion 20 mL/hr, intravenous, Continuous PRN, to maintain patency of lines, Starting on Mon10/15/23 at 0208 sodium phosphate 20 mmol in sodium chloride 0.9 % 100 mL IVPB(Linked Group 1) 20 mmol, intravenous, at 26.7 mL/hr, Administer over 4 Hours, As needed, for phosphorus level 2.3 mg/dL or less., Starting on [place] 10/15/23 at 1021, Administer over 4 hours via dedicated line (central line). If administered, recheck phosphorus level 4 hours after infusion complete. Infuse using central line access. sodium phosphate 20 mmol in sodium chloride 0.9 % 250 mL IVPB(Linked Group 1) 20 mmol, intravenous, at 42.8 mL/hr, Administer over 6 Hours, As needed, for phosphorus level 2.3 mg/dL or less, Starting on Mon10/15/23 at 1021, Administer over 6 hours via dedicated line (peripheral line). If administered, recheck phosphorus level 4 hours after infusion complete. technetium pentetate (DTPA AEROSOL) inhalation 35 millicurie (COMPLETED) 35 millicurie, inhalation, Once in imaging, contrast, Radiopharmaceutical, Starting on Mon10/17/23 at 0744, For 1 dose 0745 (Given - Provider: Adalgisa Murphy) Linked Groups Order Group 1: sodium phosphate 20 mmol in sodium chloride 0.9 % 250 mL IVPBJump to med 20 mmol, intravenous, at 42.8 mL/hr, Administer over 6 Hours, As needed, for phosphorus level 2.3 mg/dL or less, Starting on Mon10/15/23 at 1021, Administer over 6 hours via dedicated line (peripheral line). If administered, recheck phosphorus level 4 hours after infusion complete. Or sodium phosphate 20 mmol in sodium chloride 0.9 % 100 mL IVPBJump to med 20 mmol, intravenous, at 26.7 mL/hr, Administer over 4 Hours, As needed, for phosphorus level 2.3 mg/dL or less., Starting on Mon10/15/23 at 1021, Administer over 4 hours via dedicated line (central line). If administered, recheck phosphorus level 4 hours after infusion complete. Infuse using central line access. Or sod phos di, mono-K phos mono (K-PHOS NEUTRAL) 250 mg tablet 2 tabletJump to med 2 tablet, oral, As needed, for phosphorus level 2.3 mg/dL or less. Do not administer if potassium is more than 4.5, Starting on Mon10/15/23 at 1021, If dose administered, recheck phosphorus level 4 hours after last dose. Look-alike/sound-alike medication - verify indication for use. Give with a full glass of water. FOR RECORDS PERTAINING TO PATIENTS WHO ARE [...] BE BASED ON THE PRIMARY CLINICAL RECORDS. [facility]. provides no warranty or guarantee of the accuracy or completeness of information in this document.
== END 2024-12-10 10:36 | disposition home or self-care (01) ==
PROVIDERS: PCP Nurse Practitioner Family; Visit Provider Internal Medicine Interventional Cardiology
DX: I10 Essential (primary) hypertension (principal)
CPT/HCPCS: 36415; 80048

== ENCOUNTER 2025-01-16 17:21 | Emergency (ER) | payer OTHER, SELFPAY ==
[2025-01-16] VITALS (31 sets, daily range): BP systolic 92–176; BP diastolic 48–83; PULSE 51–90; TEMP 36.5; O2SAT 89–100; BMI 60.5
--- OUTSIDE RECORDS SUMMARY | 2025-01-16 18:00 | XMS_ITS | Encounter Summary ---
Author Organization [employer] tem Address [facility] [id number] [address] [place] [address] Care Team Providers Care Marketing Finance Manager Name Role Phone Adrianne Kelly MD Primary Care Provider [phone] Encounter Details Date Type Department Care Team (Late st Contact Info) Description 10/31/2023 Telephone [facility] [address] [facility] [address] [place] [id number] Alice Mabry LPN Social History Tobacco Use Types Packs/Day Years Used Date Smoking Tobacco: Every Day Cigarettes 1 44 Smokeless Tobacco: Never Alcohol Use Standard Drinks/Week Comments Not Currently 0 (1 standard drink = 0.6 oz pur e alcohol) [facility] Utilities Answer Date Recorded In the past 12 months has [employer], gas, oil, or water company threatened to [...] documented as of this encounter Care Teams Marketing Finance Manager Relationship Specialty Start Date End Date Adrianne Kelly MD [address] [place] [address] PCP - General Family Medicine 10/19/23 documented as of this encounter
--- OUTSIDE RECORDS SUMMARY | 2025-01-16 18:00 | XMS_ITS ---
Author Organization [facility] tem Address [facility] [id number] [address] [place] [address] Care Team Providers Care Furniture Removalist Name Role Phone Adrianne Kelly MD Primary Care Provider [phone] Active Problems * This document contains information [...]
--- OUTSIDE RECORDS SUMMARY | 2025-01-16 18:00 | XMS_ITS | Encounter Summary ---
Author Organization [employer] tem Address [id number] [address] [place] [address] Care Team Providers Care Psychiatric Lpn Name Role Phone Adrianne Kelly MD Primary Care Provider [phone] Encounter Details Date Type Department Care Team (Late st Contact Info) Description 11/13/2023 Orders Only 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) Social History Tobacco Use Types Packs/Day Years Used Date Smoking Tobacco: Every Day Cigarettes 1 44 Smokeless Tobacco: Never Alcohol Use Standard Drinks/Week Comments Not Currently 0 (1 standard drink = 0.6 oz pur e alcohol) [facility] Utilities Answer Date Recorded In the past 12 months has [employer], gas, oil, or water [employer] threatened to shut off services in your [...] documented as of this encounter Care Teams Psychiatric Lpn Relationship Specialty Start Date End Date Adrianne Kelly MD [address] [place] [id number] PCP - General Family Medicine 10/19/23 documented as of this encounter
--- OUTSIDE RECORDS SUMMARY | 2025-01-16 18:00 | XMS_ITS | Patient Health Record ---
Author Organization [facility] Address [address] [place] [address] Care Team Providers Care Product Development Director Name Role Phone Olman Morelos Unavailable [phone] Allergies Allergen (clinical drug ingredient) Drug/Non Drug [...] Problem Status W/U Status Risk Notes Problem [id number] Tear of articular cartilage of right knee, current, initial encounter (S83.31XA) Active confirmed Problem [id number] Right knee pain, unspecified chronicity (M25.561) Active confirmed Plan Of Treatment No Information Insurance Providers Payer Name Payer Address Payer Phone Subscriber Number Group Number Insured Name Patient Relationship to Insured Coverage Start Date Coverage End Date [facility] [address] [place] [id number] DANIELLE MONTANA Self - patient is the insured Medical (General) History Medical History History ICD Code Respiratory problems: Yes Lung Disease: Yes High Blood Pressure: Yes Depression: Yes Anxiety: Yes Sleep apnea: Yes CPAP Machine: Yes Do you use the CPAP machine? Yes Drug Allergies: Yes Surgical History Surgery Date(Month/Year)
--- OUTSIDE RECORDS SUMMARY | 2025-01-16 18:00 | XMS_ITS | Clinical Summary ---
Author Organization [facility] Address [address] [place] [address] Care Team Providers Care Memory Care Program Resident Name Role Phone Unallocated, Noms Provider Primary [...] study in 2019. Will refer to [facility] Sleep Study. ARSH (generalized anxiety disorder) [...] understanding. Pt was following with Pulmonology in [place] 2 years ago, needs established with new Recruiting Team Lead. Has hx of ADORE- does not wear [...] Never 02/05/2024 How often do you attend scientologist or sikh serv ices? Never 02/05/2024 Do you belong to any clubs o r organizations such as scientologist groups, unions, fraternal or athletic groups, or [...] any time in the past 12 m [facility], were you homeless or living in a residential (including now)? No 02/05/2024 Comments Unknown Sex [...] 10/13/2029 Insurance [employer] MEDICAID Care Teams Memory Care Program Resident Relationship Specialty Start Date End Date Unallocated, Noms Alvaro, [address] [place], [place] [phone] PCP - General Family Medicine 10/30/24
--- OUTSIDE RECORDS SUMMARY | 2025-01-16 18:00 | XMS_ITS | Encounter Summary ---
Author Organization [facility] Address [address] [place] [address] Care Team Providers Care Conduit Mechanic Name Role Phone Vu Jackson MD Primary Care Provider [phone] Sirisha Pompa CENTRIFUGE SEPARATOR TENDER Unavailable [phone] Unallocated, Michael Provider Primary Care Provi carlos Encounter Details Date Type Department Care Team (Late st Contact Info) Description 04/09/2024 Orders Only [facility] [address] [place] [address] Sheri Marcum MD [address] [place] [phone] Social History Tobacco Use Types Packs/Day Years [...] Never 02/05/2024 How often do you attend amish or hindu serv ices? Never 02/05/2024 Do you belong to any clubs o r organizations such as amish groups, unions, fraternal or athletic groups, or [...] any time in the past 12 m [facility], were you homeless or living in a [place] health care facility (including now)? No 02/05/2024 Comments Unknown Sex [...] on filedocumented in this encounter Care Teams Conduit Mechanic Relationship Specialty Start Date End Date Vu Jackson MD PCP - General Family Medicine 12/12/23 10/29/24 Unallocated, Noms Provider, [address] [place] [address] PCP - General Family Medicine 10/30/24 Sirisha Pompa NP Nurse Practitioner Family Medicine 12/12/23 10/29/24 documented as of this encounter
--- OUTSIDE RECORDS SUMMARY | 2025-01-16 18:00 | XMS_ITS | Clinical Summary ---
Author Organization [employer] [facility] tem Address [id number] [address] [place] [address] Care Team Providers Care Dredge Deckhand Name Role Phone Adrianne Kelly MD Primary Care Provider [phone] Allergies Active Allergy Reactions Criticality Noted Date [...] ns:Chronic obstructive pulmonary disease, unspecified COPD type ([facility]) Inhale 3 mL by nebulization every [...] drink = 0.6 oz pur e alcohol) [employer] Utilities Answer Date Recorded In the past 12 months has [employer] gas, oil, or water [employer] threatened to shut off services in your [...] Health Maintenance Due Date Last Done Comments Statin Use: Cardiovascular 1965 Tobacco Counseling 1965 DTaP,Tdap and Td Vaccines (1 - Tdap) [...] Recently Relevant to Health Maintenance Insurance MEDICAID [facility] MEDICAID [facility] MEDICAID Advance Directives Documents on File Type Date Recorded Patient Electronics Commodity Manager Expl anation Durable Power of Food Consultant 01/12/2021 1:47 PM Living Will 01/12/2021 1:47 PM DNR Physician Order 01/12/2021 1:47 PM * DNR Comfort Care Arrest (DNR-CCA) [place] (Latest Code Status on File) Date Activated Date Inactivated Comments 10/19/2023 12:20 AM 10/25/2023 7:16 PM * DNR Comfort Care Arrest (DNR-CCA) [place] Date Activated Date Inactivated Comments 10/15/2023 8:24 AM 10/18/2023 11:19 PM * DNR Comfort Care Arrest (DNR-CCA) [place] Date Activated Date Inactivated Comments 12/30/2020 12:36 PM 01/02/2021 4:30 PM * Full Code Date Activated Date Inactivated Comments 12/25/2020 3:50 PM 12/30/2020 12:36 PM * Full Code Date Activated Date Inactivated Comments 10/08/2020 1:02 PM 10/08/2020 6:57 PM Care Teams Dredge Deckhand Relationship Specialty Start Date End Date Adrianne Kelly MD [address] [place] [address] [phone] PCP - General Family Medicine 10/19/23
--- OUTSIDE RECORDS SUMMARY | 2025-01-16 18:00 | XMS_ITS | Patient Health Record ---
Author Organization [facility] Address [address] [place] [address] Care Team Providers Care Instructor Product Inspection Name Role Phone Selene Rodrigez Primary Care Provider Allergies Allergen (clinical drug ingredient) Drug/Non Drug Allergy documented on EMR Reaction Allergy Type Onset Date Status sulfamethoxazole / trimethoprim Bactrim hives Drug Allergy Active pregabalin Lyrica dizziness Drug Allergy Active Results Component Value Reference Range Notes CBC AUTO DIFF Reviewed date:05/21/2024 11:03:45 AM Interpretation: Performing Lab: Notes/Report: [facility] , White Blood Count 7.9 4.0-11.0 10 [...] 3/uL Performing Lab: see note ML - [facility] FREE T3 Reviewed date:05/21/2024 11:03:45 AM Interpretation: Performing Lab: Notes/Report: [facility] Free T3 2.88 2.18-3.98 pg/mL Performing Lab: see note - [facility] GLYCOHEMOGLOBIN A1C Reviewed date:05/21/2024 11:03:45 AM Interpretation: Performing Lab: Notes/Report: [facility] , Glycohemoglobin A1C 5.1 4.5-6.2 % ADA RECOMMENDED LIMIT 4.0 - 6.0 ADA THERAPEUTIC TARGET < 7.0 ACTION SUGGESTED > 7.0 Estimated Average Glucose 100 Performing Lab: see note ML - [facility] INSULIN Reviewed date:05/21/2024 11:03:45 AM Interpretation: Performing Lab: Notes/Report: [facility] , Insulin 22.1 2.6-24.9 uIU/mL Performed at: [facility] [address] [id number] Emt: Serafin Vo PhD, Phone: [phone] Performing Lab: see note - [facility] LB IRON Reviewed date:05/21/2024 11:03:45 AM Interpretation: Performing Lab: Notes/Report: [facility] , Iron 63.0 50.0-170.0 ug/dL Performing Lab: see note - [facility] LIPID PROFILE Reviewed date:05/21/2024 11:03:45 AM Interpretation: Performing Lab: Notes/Report: [facility] , Triglycerides 114 <=150 mg/dL Cholesterol 191 <=200 mg/dL HDL Cholesterol 98 40-60 mg/dL > or =60 mg/dl - LOW CARDIOVASCULAR RISK <40 mg/dl - HIGH CARDIOVASCULAR RISK LDL Cholesterol Calculated 71.0 <100 mg/dl OPTIMAL 100-129 mg/dl NEAR OR ABOVE OPTIMAL 130-159 mg/dl BORDERLINE HIGH 160-189 mg/dl HIGH >190 mg/dl VERY HIGH VLDL CHOLESTEROL 22.8 Chol HDL Ratio 1.9 3.3 - 4.4 LOW RISK 4.4 - 7.1 AVERAGE RISK 7.1 - 11.0 MODERATE RISK >11.0 HIGH RISK Performing Lab: see note - [facility] PROF 14(COMP METB) Reviewed date:05/21/2024 11:03:45 AM Interpretation: Performing Lab: Notes/Report: [facility] , Sodium 141 136-145 mmol/L Potassium 4.4 [...] 1.0 Performing Lab: see note ML - [facility] LB T4 Reviewed date:05/21/2024 11:03:45 AM Interpretation: Performing Lab: Notes/Report: [facility] , T4 Thyroxine 8.70 4.80-13.90 ug/dL Performing Lab: see note - [facility] LB TSH Reviewed date:05/21/2024 11:03:45 AM Interpretation: Performing Lab: Notes/Report: [facility] , Thyroid Stimulating Hormone 2.152 0.358-3.740 u IU/mL Performing Lab: see note - [facility] LB VITAMIN D 25 [place] Reviewed date:05/21/2024 11:03:45 AM Interpretation: Performing Lab: Notes/Report: [facility] , Vitamin D 28.5 <20 ng/mL Vit D deficient 20-<30 ng/mL Vit D insufficient 30-100 ng/mL Vit D sufficient >100 ng/mL Potential Toxicity Performing Lab: see note ML - The [facility] LB Vitamin B12 Reviewed date:05/21/2024 11:03:45 AM Interpretation: Performing Lab: Notes/Report: [facility] , Vitamin B12 3811 339-7492 pg/mL Performed at: - [facility] [address] [id number] Emt: Serafin Vo PhD, Phone: [phone] Performing Lab: see note LC - [facility] LB NM debora perf SPECT rest str Reviewed date:11/11/2024 04:56:10 PM Interpretation: Performing Lab: Notes/Report: Source Facility: [place] [address] Nuclear Medicine Report Signed Patient: CLARISSA MONTANA MR#: [id number] : 1965 Acct:[id number] Age/Sex: 59 / F ADM Date: 10/21/24 Loc: NM Attending Dr: Mehrdad Bryant M.D. Ordering Physician: Mehrdad Bryant M.D. Date of Service: 10/21/24 Procedure(s): NM debora perf SPECT rest str Accession Number(s): [id number] cc: SELENE RODRIGEZ ; Mehrdad Bryant M.D. Patient Name: CLARISSA MONTANA MR#: [id number] : 1965 Exam Date: 10/21/2024 Ordering Doctor: DR MEHRDAD BRYANT M.D. RADIOLOGY REPORT PROCEDURE: NM DEBORA PERF SPECT REST STR COMPARISON: None. INDICATIONS: CHEST PAIN, DYSPNEA ON EXERTION TECHNIQUE: Exam Description: Stress/Rest two day protocol gated SPECT Rest Imagin.4 mCi Tc-99m Cardiolite IV on 10/21/2024 Stress Imaging 25.0 mCi Tc-99m Cardiolite IV on 11/08/2024 Exercise Protocol: 0.4 mg Lexiscan given IV Heart Rate (bpm): Rest: 60 Max: 75 PMHR: 46 Blood Pressure: Rest: 124/78 Max: 128/78 Symptoms: Rest and peak stress ECG findings were pending and the EKG portion of the study was pending per attending physician [facility] . For more details please see separate cardiac stress test report. FINDINGS: QUALITY OF STUDY: Fair PERFUSION DEFECT: LOCATION: Anterior, septal, and lateral SIZE: Large SEVERITY: Mild to moderate TYPE: Reversible WALL MOTION: Normal LV SIZE: 98 mL. TID / TCD: 0.8 LVEF: Calculated EF 73%. SUMMARY: Abnormal myocardial perfusion imaging study CONCLUSION: Abnormal myocardial perfusion stress study showing evidence of anterior, septal and lateral ischemia Normal left ventricular systolic function, ejection fraction 73% No transient ischemic dilatation, TID 0.8 EKG portion of stress test is reported separately Dictated by: Shanelle Garsia MD on 11/10/2024 at 18:26 Approved by: Shnaelle Garsia MD on 11/10/2024 at 18:31 Dictated By: Shanelle Garsia M.D. Signed By: 11/10/241831 DD/ 30 TD/TT: Metal Expediter: CBC AUTO DIFF Reviewed date:12/06/2024 03:02:32 PM Interpretation: Performing Lab: Notes/Report: [facility] , White Blood Count 10.1 4.0-11.0 10 3/uL Red Blood Count 4.81 4.20-5.40 10 6/uL Hemoglobin 13.9 12.0-16.0 g/dL Hematocrit 41.4 36.0-48.0 % Mean Corpuscular Volume 86.1 81.0-99.0 fL Mean Corpuscular Hemoglobin 28.9 26.7-34.0 pg Mean Corpuscular HGB Conc 33.6 29.9-35.2 g/dL Red Cell Distribution Width 13.2 11.0-15.0 % Platelet Count 345 150-450 10 3/uL Mean Platelet Volume 9.9 9.5-13.5 fL Neutrophils Percent Auto 67.9 43.0-75.0 % Lymphocytes Percent Auto 20.9 20.5-60.0 % Monocytes Percent Auto 8.1 1.7-12.0 % Eosinophils Percent Auto 2.3 0.9-7.0 % Basophils Percent Auto 0.5 0.2-2.0 % Immature Granulocytes Pct Auto 0.3 0.0-0.5 % Neutrophils Absolute Auto 6.9 1.4-6.5 10 3/uL Lymphocytes Absolute Auto 2.1 1.2-3.8 10 3/uL Monocytes Absolute Auto 0.8 0.3-0.8 10 3/uL Eosinophils Absolute Auto 0.2 0.0-0.7 10 3/uL Basophils Absolute Auto 0.1 0.0-0.1 10 3/uL Immature Granulocytes Abs Auto 0.03 0.00-0.03 10 3/uL Performing Lab: see note [facility] PROF CHEM 8 (GRAYL METB) Reviewed date:12/06/2024 03:02:32 PM Interpretation: Performing Lab: Notes/Report: [facility] , Sodium 139 136-145 mmol/L Potassium 4.0 3.5-5.1 mmol/L Chloride 103 98-107 mmol/L Carbon Dioxide 26.5 21.0-32.0 mmol/L Anion Gap 13.5 Glucose 128 74-106 mg/dL Blood Urea Nitrogen 22.0 7.0-18.0 mg/dL Creatinine 2.16 0.55-1.02 mg/dL Estimated GFR ( Martine 28 >=60 mL/min/1.73m 2 Estimated GFR (Non- Esmer 23 >=60 mL/min/1.73m 2 BUN Creatinine Ratio 10.2 Calcium 9.7 8.5-10.1 mg/dL Performing Lab: see note [facility] PROF CHEM 8 (GRAYL METB) Reviewed date:12/10/2024 03:11:36 PM Interpretation: Performing Lab: Notes/Report: [facility] , Sodium 141 136-145 mmol/L Potassium 4.1 3.5-5.1 mmol/L Chloride 105 98-107 mmol/L Carbon Dioxide 27.1 21.0-32.0 mmol/L Anion Gap 13.0 Glucose 97 74-106 mg/dL Blood Urea Nitrogen 13.0 7.0-18.0 mg/dL Creatinine 1.08 0.55-1.02 mg/dL Estimated GFR ( Martine >60 >=60 mL/min/1.73m 2 Estimated GFR (Non- Esmer 52 >=60 mL/min/1.73m 2 BUN Creatinine Ratio 12.0 Calcium 9.7 8.5-10.1 mg/dL Performing Lab: see note ML - [facility] Reason For Referral Reason titration study Diagnosis 1 ADORE (obstructive sle ep apnea) (G47.33) Referral Organization [facility] Referring Provider First Name Selene Referring Provider Last Name Rain Referring Provider Speciality Family [facility] Referred Provider [facility] Referred Provider Specialty Sleep Medici ne Referral Priority Routine Medications Medication SIG (Take, Route, Frequency, Duration) Notes Start Date End Date Status Bumetanide 1 MG 1 tablet Orally Once a day; Duration: 30 days Active busPIRone HCl 15 MG 1 tablet Orally Twic e a day; Duration: 30 days Active lamoTRIgine 100 MG 1 tablet Orally Once a day; Duration: 90 days Active Vitamin B12 1000 MCG 1 tablet Orally Onc e a day; Duration: 30 days Active Magnesium Oxide 400 MG 1 tablet with food Orally Once a day; Duration: 30 days Active FeroSul 325 (65 Fe) MG 1 tablet Orally daily; Duration: 30 days Active DULoxetine HCl 60 MG 1 capsule Orally On ce a day; Duration: 30 days Active Omeprazole 40 MG 1 capsule 1/2 to 1 hour before morning meal Orally Once a day; Duration: 90 days Active Donezepil HCl-10 mg 10 mg one tablet orally q day; Duration: 30 days Active Mounjaro 2.5 MG/0.5ML 2.5 mg Subcutaneou s weekly; Duration: 28 days call for next dose 04/30/2024 Active hydrOXYzine HCl 25 MG 1 tablet as needed Orally BID; Duration: 90 days Active CPAP Supplies -- Mask and Tubing 04/30/2024 Active Trelegy Ellipta 100-62.5-25 MCG/ACT 1 puff Inhalation Once a day; Duration: 30 days 06/10/2024 Active Carvedilol 25 MG 1 tablet with food Orally Twice a day; Duration: 90 days Active Stiolto Respimat 2.5-2.5 MCG/ACT 2 puffs Inhalation Once a day; Duration: 30 days 06/11/2024 Active Vitamin D3 125 MCG (5000 UT) 1 tablet Orally Once a day Active Allergy (Cetirizine) 10 MG 1 tablet Orally Once a day; Duration: 30 days 06/10/2024 Active Losartan Potassium 50 [...] Problem COPD - Chronic obstructive pulmonary disease (81081090) COPD (chronic obstructive pulmonary disease) (J44.9) Active confirmed Problem Chronic kidney disease (106111182) CKD (chronic kidney disease) (N18.9) Active confirmed Problem Obstructive sleep apnea syndrome (41386117) ADORE (obstructive sleep apnea) (G47.33) Active confirmed Problem Iron deficiency anemia (21139227) Iron deficiency anemia (D50.9) Active confirmed Problem Acute congestive heart failure (37616656) Acute CHF (I50.9) Active confirmed Problem Primary hypertension (17586123) Primary hypertension (I10) Active confirmed Problem Morbid obesity (915001050) Class 3 obesity (E66.01) Active confirmed Vital Signs Blood pressure diastolic 80 mm Hg 04/30/2024 Height 60 in 04/30/2024 Blood pressure systolic 130 mm Hg 04/30/2024 Weight 317 lbs 04/30/2024 BMI 61.9 kg/m2 04/30/2024 Encounters Encounter Location Date Provider Diagnosis [facility] [address] [place] [address] 05/01/2024 Selene Rodrigez [facility] [address] [place] [address] 05/07/2024 Selene Rodrigez [facility] [address] [place] [address] 05/21/2024 Selene Rodrigez [facility] [address] [place] [address] 06/10/2024 Selene Rodrigez [facility] [address] [facility] [address] 06/11/2024 Selene Rodrigez [facility] [address] [facility] [address] 08/19/[address] [facility] [address] [facility] [place] [address] 09/11/[address] [facility] [address] [facility] [place] [address] 09/18/2024 Selene Rodrigez [facility] [address] [facility] [address] 04/30/2024 Selene Rodrigez ADORE (obstructive sle ep apnea) G47.33 ; Fatigue R53.83 ; Class 3 obesity E66.01 and Primary hypertension I10 Assessments Encounter Date Diagnosis (ICD Code) Assessment [...] [facility] [place] [address] [place] [address] [id number] [facility]PH[facility] Clarissa [place] Self - patient is the insured Medical (General) History Medical History History ICD Code dementia fibromyalgia bipolar depression Surgical History Surgery Date(Month/Year) hysterectomy
--- OUTSIDE RECORDS SUMMARY | 2025-01-16 18:00 | XMS_ITS | Encounter Summary ---
Author Organization [facility] Address [address] [place] [address] Care Team Providers Care Indoor Landscaper/Gardener Name Role Phone Vu Jackson MD Primary Care Provider [phone] PATCHER Unavailable [phone] Unallocated, Michael Provider Primary Care Provi carlos Encounter Details Date Type Department Care Team (Late st Contact Info) Description 01/22/2024 Orders Only [facility] [address] [place] [address] Shaikh Vasquez MD [address] [place] [id number] Social History Tobacco Use Types Packs/Day Years [...] on filedocumented in this encounter Care Teams Indoor Landscaper/Gardener Relationship Specialty Start Date End Date Vu Jackson MD PCP - General Family Medicine 12/12/23 10/29/24 Unallocated, Noms MD Alvaro [address] [place] [address] PCP - General Family Medicine 10/30/24 Sirisha Pompa NP Nurse Practitioner Family Medicine 12/12/23 10/29/24 documented as of this encounter
--- OUTSIDE RECORDS SUMMARY | 2025-01-16 18:00 | XMS_ITS | Encounter Summary ---
Author Organization [facility] tem Address [facility] [id number] [address] 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 Author home General Yes Faey Glass, RN Note: Evaluation of progress towards [...] documented as of this encounter Care Teams Supervisor Net Making Relationship Specialty Start Date End Date Adrianne Kelly MD [address] [id number] PCP - General Family Medicine 10/19/23 documented as of this encounter
--- OUTSIDE RECORDS SUMMARY | 2025-01-16 18:00 | XMS_ITS | Encounter Summary ---
Author Organization [employer] tem Address [facility] [place][id number] [address] [place] [address] Care Team Providers Care Taker Away Name Role Phone Adrianne Kelly MD Primary Care Provider [phone] Encounter Details Date Type Department Care Team (Late st Contact Info) Description 10/31/2023 Orders Only [facility] [address] [place] [phone] Alice Mabry LPN Social History Tobacco Use Types Packs/Day Years Used Date Smoking Tobacco: Every Day Cigarettes 1 44 Smokeless Tobacco: Never Alcohol Use Standard Drinks/Week Comments Not Currently 0 (1 standard drink = 0.6 oz pur e alcohol) [facility] Utilities Answer Date Recorded In the past 12 months has [employer], gas, oil, or water company threatened [...] documented as of this encounter Care Teams Taker Away Relationship Specialty Start Date End Date Adrianne Kelly MD [address] [place] [address] PCP - General Family Medicine 10/19/23 documented as of this encounter
--- OUTSIDE RECORDS SUMMARY | 2025-01-16 18:00 | XMS_ITS | Clinical Summary ---
Author Organization [facility] Address [address] [place] [address] Care Team Providers Care Power Tool Repairer Name Role Phone Selene Rodrigez CNP Primary Care Provider [phone] Allergies Active Allergy Reactions Criticality Noted Date [...] Active Problems Problem Noted Date Diagnosed Date Abnormal cardiovascular stress test 11/19/2024 Assessment & Plan (12/06/2024 9:28 AM EDT): No associated orders from this encounter found during lookback period of 72 hours. Abnormal findings on diagnos tic imaging of heart and coronary circulation 11/19/2024 Assessment & Plan (12/06/2024 9:28 AM EDT): No associated orders from this encounter found during lookback period of 72 hours. Anxiety 11/06/2023 Cancer 11/06/2023 Overview (11/06/2023): cervical [...] sleep study in 2019. Will refer to [facility] Sleep Study. COPD with acute exacerbation [...] Encounters Date Type Department Care Team Description 12/25/[address] [place] [address] Aliya Botello MA 12/18/2024 Orders Only [address] [place] [address] ProviderTianna MD 12/10/2024 [address] [facility] [address] [place] [address] Aliya Botello MA 12/09/2024 Orders Only [address] [place] [address] Aliya Botello MA Essential hypertension (Primary Dx) 12/09/[address] [place] [address] Aliya Botello MA 12/09/[address] [place] [address] Alisha Mckeon MA 12/06/2024 10:55 AM EDT - 12/06/2024 11:55 AM EDT Surgery [facility] Vascular Lab [address] [place] [address] Alan Saunders MD Coronary angiography 12/06/2024 8:32 AM EDT - 12/06/2024 4:48 PM EDT Hospital Encounter [facility] Vascular Lab [address] [place] [address] Alan Saunders MD Abnormal cardiovascular stress test; Abnormal findings on diagnostic imaging of heart and coronary circulation Discharge Disposition: Home or Self Care () 12/06/2024 Travel 11/21/2024 10:30 AM EDT Infusion [facility] Tequila Hester [facility] Infusion [address] [place] [address] Microscopic polyangiitis (CMS/HCC) (Primary Dx) 11/19/2024 Telephone [facility] [address] [place] [address] MikeAlisha sapp MA 11/11/2024 Orders Only [facility] [address] [place] [address] ProviderTianna MD 11/07/2024 10:30 AM EDT Infusion [facility] Tequila N. [facility] Infusion [address] [place] [phone] Microscopic polyangiitis (CMS/HCC) (Primary Dx) from Last 3 Months Family History Medical [...] Information Value Date Recorded Sex Assigned at Female 11/21/2024 10:38 AM EDT Legal Sex Female 10:13 PM EDT Gender Identity Female 11/21/2024 10:38 AM EDT Sexual Orientation Choose not to disclose 2024 10:38 AM EDT Last Filed Vital Signs Vital Sign Reading Time Taken Comments Blood Pressure 126/80 12/06/2024 4:45 PM EDT Pulse 67 12/06/2024 4:45 PM EDT Temperature 36.6 C (97.9 F) 11/21/2024 11:06 AM EDT Respiratory Rate 21 12/06/2024 4:45 PM EDT Oxygen Saturation 98% 12/06/2024 4:45 PM EDT Inhaled Oxygen Concentration - - Weight 144 kg (318 lb) 11/21/2024 11:06 AM EDT Height 152.4 cm (5') 10/08/2024 11:12 AM EDT Body Mass Index 62.11 10/08/2024 11:12 AM EDT Plan of Treatment Upcoming Encounters Date Type Department Care Team (Late st Contact Info) Description 05/08/2025 10:00 AM EST [facility]fusion [facility] [address] [place] [address] 05/22/2025 10:00 AM EST Infusion formerly [facility] Kacie [facility] Infusion [address] [place] [phone] Health Maintenance Due Date Last Done Comments CT Colonography 1964 Colonoscopy 1964 Colorectal Cancer Screening 1964 FIT-DNA 1964 FIT 1964 FOBT 1964 Sigmoidoscopy 1964 Depression Screening 1976 Pneumococcal Vaccine: Pediat rics (0 to 5 Years) and At-Risk Patients (6 to 64 Years) (1 of 2 - PCV) 08/31/1983 Pap Smear 1985 Adult Tetanus 1986 Cervical Cancer Screening 1994 HPV/Cotest 1994 Zoster Vaccines (1 of 2) 2014 Mammogram 02/25/2021 02/25/2019 COVID-19 Vaccine (2 - 2024-2 6 season) 2024 01/02/2021 Influenza Vaccine (#1) 2024 HIB Vaccines Aged [...] on patient's age to complete this topic Procedures Procedure Name Priority Date/Time Associated Diagnosis Comments RIGHT HEART CATH Routine 12/06/2024 11:3 4 AM EDT Abnormal cardiovascular stress test Abnormal findings on diagnostic imaging of heart and coronary circulation CORONARY ANGIOGRAPHY Routine 12/06/2024 11:34 AM EDT Abnormal cardiovascular stress test Abnormal findings on diagnostic imaging of heart and coronary circulation POCT HBO2% Routine 12/06/2024 11:14 AM EDT ECG 12-LEAD Routine 12/06/2024 9:33 AM EDT CARDIAC EVENT MONITOR Routine 11/07/2024 9:41 AM EDT LEXISCAN STRESS MYOCARDIAL PERFUSION IMAGING Routine 10/21/2024 10:15 AM EDT from Last 3 Months Results * CORONARY ANGIOGRAPHY, RIGHT HEART CATH (12/06/2024 11:34 AM EDT) Anatomical Region Laterality Modality Other Narrative 12/06/2024 11:45 AM EDT PROCEDURE PHYSICIAN: Alan Saunders MD . Indications: Clarissa Monae is a 59 y.o. female who was evaluated in clinic by Dr Mehrdad Mccormick for chest pain and shortness of breath. Her stress test showed ischemia. She was referred for cardiac catheterization. Assistants: Cardiovascular Fellow Dr Abram Man. Procedure Performed: Bilateral selective coronary angiogram. Right heart catheterization. Access into the right common femoral artery and common femoral vein under ultrasound guidance. Limited right common femoral angiogram. Methods: Procedure was explained to the patient with risks and benefits; she signed informed consent. she was brought to the chemistry laboratory technician in a fasting state. The groin area was prepped and draped in usual fashion. Micropuncture technique was used under ultrasound guidance for access in the right common femoral artery. Inner cannular angiography was performed followed by upsizing to a 4-Belizean x 11 cm sheath. Micropuncture technique was used under ultrasound guidance for access in the right common femoral vein and a 6-Belizean x 11 cm sheath was placed. A 6-Belizean Douglass catheter was used for right heart catheterization and measurement of pressures and calculation of cardiac output using the estimated Audra method. Douglass catheter was removed. Bilateral selective coronary angiography was then performed using 4-Belizean JL4 diagnostic catheter for engagement of the left coronary artery and 4-Belizean 3DRC diagnostic catheter for engagement of the right coronary artery. Catheters were removed. Hemostasis was achieved by manual compression in the femoral artery and vein. she tolerated the procedure well and was transferred back to the cardiovascular recovery area. Hemodynamic Data: RA: 11 RV: 40/13, 14 PA: 36/14 (22) PCWP: 7 CO: 4.69 CI: 2.07 O2 Sat: PA sat: 61%, AO sat: 93% AO: 109/69 (78) TP PVR: 3.2 Wood units SVR: 1143 Metric units Coronary angiography: This is a right-dominant circulation. Left Main: This arises from the left coronary cusp. It trifurcates into left anterior descending, ramus and circumflex vessels. This is angiographically normal. Left anterior descending: This is angiographically normal. Ramus vessel: This is angiographically normal. Circumflex: This is a non-dominant vessel. This is angiographically normal. Right coronary artery: This arises from the right coronary cusp. It is a dominant vessel. This is angiographically normal. Limited right common femoral angiography: This showed access to be in the femoral artery with no obstructive lesions seen in the common femoral artery and its proximal branches. Impression/Findings: Normal coronary angiogram. Normal left filling pressures. Mild elevation of right filling pressures. Mild pulmonary hypertension. Reduced cardiac output and cardiac index. Controlled systemic hypertension. 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 Plan: Risk factor control. Follow up in Cardiology Clinic with Dr Mehdrad Mccormick. Alan Saunders MD Study Details Abnormal cardiovascular stress test [R94.39], Shortness of breath [R06.02], Other chest pain [R07.89] Mehrdad Mccormick MD CV CARDIAC CATH PROCEDURES Karina l Result * (ABNORMAL) POC Hb02% (12/06/2024 11:14 AM EDT) Pathologist [facility] [id number]% 61.1(A) 90 - 95 % QC Pass/Fail Passed QC LOT # [id number] QC Expiration Date 73,126 SAMPLESITE nl Blood Venous blood specimen / Unknown 12/06/2024 11:14 AM EDT Narrative Matias Flores MT - 12/09/2024 11:23 AM EDT Oper [id number] Alan Saunders MD POINT OF CARE TEST ENTER/DANIEL T ORDERABLES Final Result * Electrocardiogram, 12-lead (12/06/2024 9:33 AM EDT) Ventricular Rate 53 BPM GE MUSE Atrial Rate 53 BPM GE MUSE ND Interval 178 ms GE MUSE QRS DURATION 94 ms GE MUSE QT Interval 462 ms GE MUSE QTC CALCULATION(BAZE TT) 433 ms GE MUSE P [place] 36 degrees GE MUSE R-[place] -18 degrees GE MUSE T Wave [place] 10 degrees GE MUSE 12/06/2024 9:22 AM EDT 12/06/2024 11:14 AM EDT Impressions GE MUSE - 12/06/2024 11:14 AM EDT Sinus bradycardia Otherwise normal ECG No previous ECGs available Confirmed by Tito GARCIA, LYNNETTE Li ([id number]) on 12/06/2024 11:14:17 AM Narrative Procedure Note Lynnette Garcia MD - 12/06/2024 IMPRESSION: Sinus bradycardia Otherwise normal ECG No previous ECGs available Confirmed by Tito GARCIA, LYNNETTE Li (57) on 12/06/2024 11:14:17 AM Alan Saunders MD ECG ORDERABLES Final Result GE MUSE * Cardiac event monitor (11/07/2024 9:41 AM EDT) Anatomical Region Laterality Modality Other Historical Provider CV CARDIAC SERVICES PROCE DURES Final Result * Lexiscan Stress Myocardial Perfusion Imaging (10/21/2024 10:15 AM EDT) Anatomical Region Laterality Modality Other Historical Provider CV STRESS PROCEDURES Karina l Result from Last 3 Months Insurance [facility] MEDICAID Care Teams Power Tool Repairer Relationship Specialty Start Date End Date Selene Rodrigez CNP [address] [place] [address], [address] [place], [place] [id number] PCP - General Family Medicine 05/20/24
--- OUTSIDE RECORDS SUMMARY | 2025-01-16 18:00 | XMS_ITS | Encounter Summary ---
Author Organization [employer] tem Address [facility] [place][id number] [address] [place] [address] Care Team Providers Care Urology Surgeon Name Role Phone Adrianne Kelly MD Primary Care Provider [phone] Encounter Details Date Type Department Care Team (Late st Contact Info) Description 11/13/2023 Telephone [facility] [address] [facility] [address] [place] [phone] Alice Mabry LPN Social History Tobacco Use Types Packs/Day Years Used Date Smoking Tobacco: Every Day Cigarettes 1 44 Smokeless Tobacco: Never Alcohol Use Standard Drinks/Week Comments Not Currently 0 (1 standard drink = 0.6 oz pur e alcohol) [facility] Utilities Answer Date Recorded In the past 12 months has [employer], gas, oil, or water company threatened to [...] documented as of this encounter Care Teams Urology Surgeon Relationship Specialty Start Date End Date Adrianne Kelly MD [address] [place] [address] PCP - General Family Medicine 10/19/23 documented as of this encounter
--- OUTSIDE RECORDS SUMMARY | 2025-01-16 18:00 | XMS_ITS | Encounter Summary ---
Author Organization [facility] Address [address] [place] [address] Care Team Providers Care Sports Physiotherapist Name Role Phone Shaikh IDRIS Vasquez Primary Care Provider [phone] Shaikh IDRIS Vasquez Primary Care Provider [phone] Vu Jackson MD Primary Care Provider [phone] Sirisha Pompa ENVIRONMENTAL MANAGEMENT SPECIALIST Unavailable [phone] Unallocated, Noms Provider Primary Care Provi carlos Encounter Details Date Type Department Care Team (Late st Contact Info) Description 07/21/2023 Orders Only [facility] [address] [place] [address] Natalio Bah MD [address] [place] [address] Social History Tobacco Use Types Packs/Day Years [...] on filedocumented in this encounter Care Teams Sports Physiotherapist Relationship Specialty Start Date End Date Shaikh Vasquez MD PCP - General Internal Medicine 11/15/22 11/01/23 Shaikh Vasquez MD [address] [place] [address] PCP - General Internal Medicine 11/02/23 12/11/23 Vu Jackson MD [address] [place] [address] PCP - General Family Medicine 12/12/23 10/29/24 Unallocated, Noms MD Alvaro [address] [place] [address] PCP - General Family Medicine 10/30/24 Sirisha Pompa NP [address] [place] [address] Nurse Practitioner Family Medicine 12/12/23 10/29/24 documented as of this encounter
--- OUTSIDE RECORDS SUMMARY | 2025-01-16 18:00 | XMS_ITS | Encounter Summary ---
Author Organization [facility] Address [id number] [address] [place] [address] Care Team Providers Care Automotive Engineer Name Role Phone Adrianne Kelly MD Primary Care Provider Encounter Details Date Type Department Care Team (Late st Contact Info) Description 10/01/2020 Orders Only [facility] [address] [place] [address] External, Scanning Provider Social History [...] Edited Result - Final Performing Organization Address City/[facility]/ZIP Co de Phone Number MANUALLY TRANSCRIBED RESULTS * Multiple labs (08/26/2020) us Scanning Provider External NE IMAGING Final Result Performing Organization Address City/[facility]/ZIP Co de Phone Number MANUALLY TRANSCRIBED RESULTS documented in this encounter Visit Diagnoses Not on filedocumented in this encounter Care Teams Automotive Engineer Relationship Specialty Start Date End Date Adrianne Kelly MD [address] [place] [address] PCP - General Family Medicine 10/19/23 documented as of this encounter
--- OUTSIDE RECORDS SUMMARY | 2025-01-16 18:00 | XMS_ITS | Encounter Summary ---
Author Organization [facility] Address [address] [facility] [place] [address] Care Team Providers Care Director Home Name Role Phone Vu Jackson MD Primary Care Provider [phone] Sirisha Pompa AIRPLANE PILOT CROP DUSTING Unavailable [phone] Unallocated, Michael Provider Primary Care Provi carlos Encounter Details Date Type Department Care Team (Late st Contact Info) Description 04/08/2024 Orders Only [facility] [address] [place] [address] Natalio Bah MD [address] [place], [place] [id number] Social History Tobacco Use Types Packs/Day Years [...] Never 02/05/2024 How often do you attend zoroastrian or anglican serv ices? Never 02/05/2024 Do you belong to any clubs o r organizations such as zoroastrian groups, unions, fraternal or athletic groups, or [...] in the past 12 m [facility], were you homeless or living in a prison (including now)? No 02/05/2024 Comments Unknown Sex [...] on filedocumented in this encounter Care Teams Director Home Relationship Specialty Start Date End Date Vu Jackson MD PCP - General Family Medicine 12/12/23 10/29/24 Unallocated, [place] [address] [place] [address] PCP - General Family Medicine 10/30/24 Sirisha Pompa NP Nurse Practitioner Family Medicine 12/12/23 10/29/24 documented as of this encounter
--- OUTSIDE RECORDS SUMMARY | 2025-01-16 18:00 | XMS_ITS | Encounter Summary ---
Author Organization [facility] Address [id number] [address] [place] [address] Care Team Providers Care Park Worker Supervisor Name Role Phone Adrianne Kelly MD Primary Care Provider [phone] Encounter Details Date Type Department Care Team (Late st Contact Info) Description 07/10/2019 Documentation [facility] [address] [place] [address] Chandrika Ca, AUTOMATION AND CONTROLS SUPERVISOR-APPLICATIONS PACKAGER [address] [facility], [address] [place] [id number] Social History Tobacco Use Types Packs/Day Years [...] documented as of this encounter Care Teams Park Worker Supervisor Relationship Specialty Start Date End Date Adrianne Kelly MD [address] [place] [address] PCP - General Family Medicine 10/19/23 documented as of this encounter
--- OUTSIDE RECORDS SUMMARY | 2025-01-16 18:00 | XMS_ITS | Encounter Summary ---
Author Organization [employer] tem Address [id number] [address] [place] [address] Care Team Providers Care Monument Carver Name Role Phone Adrianne Kelly MD Primary Care Provider [phone] Encounter Details Date Type Department Care Team (Late st Contact Info) Description 11/13/2023 Orders Only [facility] [address] [place] [address] Alice Mabry LPN Social History Tobacco Use Types Packs/Day Years Used Date Smoking Tobacco: Every Day Cigarettes 1 44 Smokeless Tobacco: Never Alcohol Use Standard Drinks/Week Comments Not Currently 0 (1 standard drink = 0.6 oz pur e alcohol) [facility] Utilities Answer Date Recorded In the past 12 months has [employer], gas, oil, or water company threatened [...] documented as of this encounter Care Teams Monument Carver Relationship Specialty Start Date End Date Adrianne Klely MD [address] [place] [address] PCP - General Family Medicine 10/19/23 documented as of this encounter
--- OUTSIDE RECORDS SUMMARY | 2025-01-16 18:00 | XMS_ITS | Encounter Summary ---
Author Organization [employer] tem Address [facility][id number] [address] [place] [address] Care Team Providers Care Bdr Name Role Phone Adrianne Kelly MD Primary Care Provider [phone] Encounter Details Date Type Department Care Team (Late st Contact Info) Description 10/25/2023 Orders Only [facility] [address] [place] [phone] Alice Mabry LPN Social History Tobacco Use Types Packs/Day Years Used Date Smoking Tobacco: Every Day Cigarettes 1 44 Smokeless Tobacco: Never Alcohol Use Standard Drinks/Week Comments Not Currently 0 (1 standard drink = 0.6 oz pur e alcohol) [facility] Utilities Answer Date Recorded In the past 12 months has [email or web address], gas, oil, or water company threatened [...] documented as of this encounter Care Teams Bdr Relationship Specialty Start Date End Date Adrianne Kelly MD [address] [place] [address] PCP - General Family Medicine 10/19/23 documented as of this encounter
--- OUTSIDE RECORDS SUMMARY | 2025-01-16 18:01 | XMS_ITS | CCD ---
Author Organization [facility] CliniSytx Care Team Providers Care Obstetrician Gynecologist Name Role Phone Tanja, Leda Unavailable Unavailable [...] le RUMSCHLAG, MIGNON Primary Care Unavailable Tanja NEWBORN PHOTOGRAPHER, Leda Unavailable NICOLE, DR VU Novoa Attending Unavailable NICOLE, DR VU Novoa Admitting Unavailable [facility] Primary Care Unavailable LIYAH, DR EBEN Couch Consulting Unavailblanca AKT, DR FRIEDA Tobar Consulting Unavailblanca e JULISSA, DR LO Hdz Consulting Unavailable NICOLE, DR VU Novoa Consulting Unavailable LATONIA, DR KHAN Consulting Unavailable NANCI BEEBE Attending Unavailable NANCI BEEBE Admitting Unavailable JULISSA, DR LO Hdz Consulting Unavailable [facility] Primary Care Unavailable NANCI BEEBE Consulting Unavailable QUYNH ARCHER Attending Unavailable QUYNH ARCHER Admitting Unavailable [facility] Primary Care Unavailable QUYNH ARCHER Consulting Unavailable [...] Care Unavailable ALEXIS ELLIOTT M Attending Unavailable IDAAXEL EmersonHAMBLAINE Olguin Admitting Unavailable IMVIOLETA REECE M Consulting Unavailable FRAN WILD Consulting Unavailable LEXI, KHALID M Attending Unavailable LEXI, KHALID M Referring Unavailable PCP, NOT IN SYSTEM Primary Care Unavailable SERA SHAWN E Referring Unavailable ZAMORA, SHAWN E [...] able Shawn Zamora MD Primary Care Provider EDUARDO SAUNDERS Admitting Unavailable ADI EDUARDO Attending Unavailable ALTOROK, NEZAM I Referring Unavailable ALTOROK, NEZAM I Referring Unavailable ALTOROK, NEZAM I Referring Unavailable EDUARDO SAUNDERS Referring Unavailable ADI EDUARDO Referring Unavailable MEHRDAD MCCORMICK Attending Unavailable MEHRDAD MCCORMICK Attending Unavailable ALTOROK, NEZAM I Referring Unavailable Allergies Allergy Classification Reported Allergen(s) Allergy Type Date of Onset Reaction(s) Facility (20 sources) codeine; Translations: [Codeine] Drug Allergy 01-19-20 12 Nausea And Vomiting, GI intolerance, Vomiting [facility] (4 sources) pregabalin; Translations: [Lyrica] Drug Allergy Altered Mental State [facility] (4 sources) sulfamethoxazole / trimethoprim; Translations: [Bactrim] Drug Allergy [facility] (4 sources) -No Environmental Allergies; Translations: [-No Environmental Allergies] Allergy to substance (disorder) [facility] (2 sources) -No Known Food Allergies Allergy to substance (disorder) [facility] (3 sources) NSAIDs Propensity to adverse reactions to drug 02-24-20 15 Other (See Comments) [place] (20 sources) pregabalin; Translations: [PREGABALIN] Drug Allergy 01-19-20 12 Other (See Comments), Unknown [place] (20 sources) Sulfamethoxazole / Trimethoprim; Translations: [SULFAMETHOXAZOLE-T RIMETHOPRIM] Drug Allergy 11-15-19 16 Hives [place] (1 source) pregabalin Drug Allergy 12-31-19 22 [facility] Repository (1 source) Sulfamethoxazole / Trimethoprim Drug Allergy 04-15-20 22 [facility] Medications Current Medications Medication Drug Class(es) Dates Sig (Normalized) Sig (Original) [id number] 200 actuat albuterol 0.09 mg/actuat metered dose [...] Start: 05-19-2018 End: 05-19-2018 VENTOLIN HFA 90MCG/ACTUAT [place] 05/19/2018 - 05/19/2018 Provider: End: 10-14-2023 [...] 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) Take 1 tablet (1 mg total) by mouth daily. 30 tablet 3 01/15/2024 Active busPIRone hydrochloride 15 mg oral tablet (20 sources) Start: 11-02-2023 End: 01-29-2024 take 1 tablet by mouth once busPIRone (Buspar) 15 MG tablet Indications: ARSH (generalized anxiety disorder) (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) , Hypovitaminosis D Take 1 tablet (5,000 [...] indication for use. take 1 tablet by [facility] once daily donepezil (ARICEPT) 10 MG tablet [...] Active Start: 10-26-2023 take 1 capsule by [facility] in the morning DULoxetine (CYMBALTA) 30 mg capsule Take 1 capsule (30 mg total) by mouth in the morning. 30 capsule 10/26/2023 Active Start: 07-19-2018 DULoxetine HCl 30MG Oral Capsule, delayed-release particles 07/19/2018 Provider: Start: 05-19-2018 End: 05-19-2018 DULOXETINE 30MG MISC 019 - 05/19/2018 Provider: Start: 05-19-2018 End: 05-19-2018 [facility]INE [facility] - 05/19/2018 Provider: Start: 03-07-2018 take 1 capsule by mo [facility] once daily duloxetine 30 mg oral capsule,delayed release(DR/EC) 03/07/2018 take 1 capsule (30 mg) by oral route once daily, take with 60 mg capsule to equal 90 mg daily Start: 03-07-2018 End: 03-07-2018 DULOXETINE 60MG MISC 018 - 03/07/2018 Provider: Start: 03-07-2018 End: 03-07-2018 DULOXETINE 30MG MISC 018 - 03/07/2018 Provider: Start: 08-16-2017 take 1 capsule by mo [facility] once daily 60 mg, oral, Daily, First dose on 10/15/23 at 0900, Look-alike/sound-alike medication - verify indication for use. Swallow whole-do not crush or chew. Although the fitting supervisor does not recommend opening the capsule to facilitate administration, the contents of capsule may be sprinkled on applesauce or in apple juice and swallowed (without chewing) immediately; do not sprinkle contents on chocolate pudding. take 1 capsule by [facility] once daily duloxetine 30 mg oral capsule,delayed release(DR/EC) take 1 capsule (30 mg) by oral route once daily ergocalciferol 1.25 mg oral capsule (4 sources) Provitamin D2 Compound Start: 07-19-2018 Ergocalciferol [id number] Oral Capsule, conventional 07/19/2018 Provider: Start: 09-14-2017 take 1 capsule by [facility] every week Vitamin D2 [...] oral, Daily with breakfast, First dose on 10/16/23 at 0800, Give ferrous sulfate 2 hours [...] 07/12/2018 - 07/20/2018 Provider: Leda Agrawal CNP Kbxhefsmmvc-Gedvlfdwp-Gvkaiz (Trelegy Ellipta) 200-62.5-25 MCG/ACT aerosol powder (4 sources) Start: 11-02-2023 take 1 puff(s) by inhalation once daily Ofyduadwhoj-Klyqrnutw-Wicklo (Trelegy Ellipta) 200-62.5-25 MCG/ACT aerosol powder Indications: Chronic obstructive pulmonary disease, unspecified COPD type ([facility]) Inhale 1 puff Daily 28 each [...] Start: 09-26-2017 take 1 capsule by mo [facility] three times daily gabapentin 300 mg oral capsule 09/26/2017 take 1 capsule (300 mg) by oral route 3 times per day Start: 09-26-2017 End: 09-26-2017 GABAPENTIN 300 mg MISC 09/26 - 09/26/2017 Provider: glucagon (rdna) 1 mg injection (1 source) Antihypoglycemic Agent Start: 10-15-2023 1 mg, i ntramuscular, As needed, low [...] Every 4 hours PRN, high blood pressure, zys=352-150, Starting on 10/15/23 at 1020, Look-alike/sound-alike medication [...] Start: 03-13-2018 take 1 capsule by mo [facility] twice daily hydroxyzine pamoate 50 mg [...] 05-19-2018 End: 05-19-2018 Omeprazole 40MG OR CPDR /09/2018 - 05/19/2018 Provider: Conversion Provider Start: 09-26-2017 [...] 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) Take 2.5 tablets (50 mg total) by [...] 1 dose take 2 tablets by mo [facility] every four hours as needed for pain [...] (Reorder) take 2000 [IU] by mouth once [place] [facility] cholecalciferol, vitamin D3, (VITAMIN D3 ORAL) Take 2,000 Unit by mouth daily. Active take 2000 [IU] by mouth once [place] cholecalciferol, vitamin D3, (VITAMIN D3 ORAL) Take 2,000 Unit by mouth daily. Clindamycin (2 sources) Lincosamide Antibacterial Start: 02-13-2018 End: 02-13-2018 CLINDAMYCIN HCL 300MG [facility] 02/13/2018 - 02/13/2018 Provider: Start: 02-13-2018 [...] day with food kit for prep of [id number] 2.5 mg recon soln 5 millicurie (1 [...] mouth once 40 mL, oral, Once, On Mon10/14/23 at 2325, For 1 dose methylPREDNISolone 125 [...] and after each intermittent use, Starting on [facility] 10/14/23 at 2218 technetium pentetate (DTPA AEROSOL) [...] 09-26-2017 Chronic Other aftercare (2 sources) Other oil heaterman (current) drug therapy; Translations: [OTH LOOP CUTTER CURRENT DRUG THERAPY] Onset: 2 Episodic Other aftercare (1 source) alf (current) use of systemic steroids; Translations: [alf (current) use of systemic steroids] Onset: 4 Episodic Other circulatory disease (1 source) 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)] 01-15-2024 Chronic Other circulatory disease (1 source) [...] W/AND (SUSP) EXPOS COVID-19] Onset: 2 Unclassified (2 sources) Antineutrophilic cytoplasmic antibody (ANCA) vasculitis; Translations: [...] unspecified; Translations: [Acute renal failure syndrome] Onset: 10-15-2023 11-02-2023 Episodic Administrative/social admission (1 source) Other reasons for seeking consultation Onset: 09-14-2017 Episodic Blindness and vision defects (20 sources) Hypermetropia; Translations: [Hypermetropia, unspecified eye] Onset: 12-15-2016 12-15-2016 Episodic Deficiency and other anemia (19 sources) Iron deficiency anemia; Translations: [Iron deficiency anemia, unspecified] Onset: 10-16-2023 10-16-2023 Episodic Deficiency and other anemia (19 sources) Iron deficiency anemia secondary to inadequate dietary iron intake; Translations: [Other iron deficiency anemias] Onset: 10-17-2023 10-17-2023 Episodic Diabetes mellitus without complication (20 sources) Abnormal glucose level; Translations: [Impaired fasting glucose] Onset: 12-26-2020 10-16-2023 Episodic Fluid and electrolyte disorders (20 sources) Hypokalemia; Translations: [Hypokalemia] Onset: 10-15-2023 10-15-2023 Episodic Gastrointestinal hemorrhage (4 sources) Hemorrhage of anus and rectum; Translations: [Gastrointestinal hemorrhage, unspecified] Onset: 12-30-2021 Episodic Genitourinary symptoms and ill-defined conditions (1 source) Nephrotic range proteinuria; Translations: [Proteinuria, unspecified] 01-15-2024 Episodic Joint disorders and dislocations; trauma-related (18 sources) Tear of articular cartilage of right knee, current, initial encounter; Translations: [Other tear of cartilage or meniscus of knee, current] Onset: 10-16-2023 10-16-2023 Episodic Mood disorders (17 sources) Mood disorders Onset: 10-19-2023 10-19-2023 Noninfectious gastroenteritis (1 source) Noninfective gastroenteritis and colitis, unspecified; Translations: [NONINFECTIVE GE AND COLITIS UNS] Onset: 01-05-2022 Episodic Nutritional deficiencies (19 sources) Cobalamin deficiency; Translations: [Deficiency of other specified B group vitamins] Onset: 10-17-2023 10-17-2023 Episodic Other bone disease and musculoskeletal deformities (1 source) 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 Other bone disease and musculoskeletal deformities (1 source) Other disorders of bone and cartilage Onset: 09-14-2017 Episodic Other connective tissue disease (2 sources) Fibromyositis; Translations: [Fibromyalgia] Onset: 05-22-2018 Episodic Other connective tissue disease (1 source) Leg swelling symptom Onset: 10-14-2023 Episodic Other ear and sense organ disorders (18 sources) Tinnitus of right ear; Translations: [Tinnitus, right ear] Onset: 06-07-2016 01-22-2019 Episodic Other lower respiratory disease (2 sources) Shortness of breath; Translations: [Shortness of breath] Onset: 04-26-2018 Episodic Other lower respiratory disease (1 source) Cough Onset: 10-14-2023 Episodic Other lower respiratory disease (1 source) Shortness of breath; Translations: [Shortness of breath] Onset: 05-20-2024 Episodic Other nervous system disorders (3 sources) Meralgia paresthetica of right leg; Translations: [Meralgia paresthetica of right side] Onset: 11-08-2013 Resolved: 03-27-2018 03-27-2018 Other non-traumatic joint disorders (3 sources) Pain in joint, lower leg Onset: 09-14-2017 Episodic Other non-traumatic joint disorders (1 source) Pain in joint, pelvic region and thigh Onset: 09-20-2017 Episodic Other non-traumatic joint disorders (18 sources) Pain in right knee; Translations: [Pain in joint, lower leg] Onset: 10-16-2023 10-16-2023 Episodic Other nutritional; endocrine; and metabolic disorders (3 sources) Obesity; Translations: [Obesity] Onset: 01-19-2012 Resolved: 11-08-2013 11-08-2013 Chronic Other upper respiratory disease (18 sources) Henry's edema; 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] Onset: 06-07-2016 06-07-2016 Episodic Other upper respiratory disease (18 sources) Dysphonia; Translations: [Dysphonia] Onset: 06-07-2016 06-07-2016 Episodic Other upper respiratory disease (18 sources) Deviated nasal septum; Translations: [Deviated nasal septum] Onset: 06-07-2016 06-07-2016 Episodic Otitis media and related conditions (20 sources) Acute suppurative otitis media without spontaneous rupture of ear drum; Translations: [Acute suppurative otitis media without spontaneous rupture of ear drum, bilateral] Onset: 04-26-2023 04-26-2023 Episodic Pneumonia (except that caused by tuberculosis or sexually transmitted disease) (18 sources) Infective pneumonia; Translations: [Pneumonia, unspecified organism] Onset: 07-14-2017 07-14-2017 Episodic Residual codes; unclassified (1 source) Family history of other neurological diseases Onset: 01-25-2018 Episodic Residual codes; unclassified (1 source) Edema Onset: 01-25-2018 Episodic Residual codes; unclassified (1 source) Memory loss Onset: 01-25-2018 Episodic Residual codes; unclassified (20 sources) Memory impairment; Translations: [Other amnesia] Onset: 02-13-2018 02-13-2018 Episodic Residual codes; unclassified (19 sources) Bilateral lower limb edema; Translations: [Localized edema] Onset: 10-15-2023 10-15-2023 Episodic Respiratory failure; insufficiency; arrest (adult) (18 sources) Acute hypoxemic and hypercapnic respiratory failure; Translations: [Acute respiratory failure with hypoxia] Onset: 01-22-2019 02-03-2019 Episodic Skin and subcutaneous tissue infections (18 sources) Cellulitis of left hand; Translations: [Cellulitis of left upper limb] Onset: 11-15-2015 11-16-2015 Episodic Urinary tract infections (18 sources) Urinary tract infectious disease; Translations: [Urinary tract infection, site not specified] Onset: 02-03-2019 02-03-2019 Episodic Results Test Name Value Interpretation Reference Range Facility 36on 12-25-2024 36 LVM for patient to call and reschedule n/s appointment from 12/18/[address] Mccormick. [facility] Orders Onlyon 12-18-2024 Orders Only [id number] Danielle [place] 1965 F Date Provider Department [place] 12/18/2024 [id number], HISTORICAL [facility] Family History Problem Relation Age of Onset Coronary artery disease Father Family Status - Relation Status Age at Mother Father [facility] 36on 12-10-2024 36 MD Aliya Lundberg MA Great - her s.cr is almost back to normal. Please reassure her. Thanks Spoke to patient, advised patient of lab results per Dr. Mccormick's request. Patient verbalized understanding [facility] 36on 12-09-2024 36 Regarding lab results from 12/05/2024: MD Aliya Lundberg MA; Alisha Forde MA Her s/creatinine is significantly elevated; this could be due exposure to the contrast during cath. Can we make sure no new meds were started? Please repeat on Saturday 12/09 - if he s.cr is still as high as it is or higher, she may need to be admitted for IV fluids Thanks. LM for patient to return my call. Spoke to patient, advised patient of Dr. Mccormick recommendation. Patient verbalized understanding and agreed with plan of care. No new medications per patient [facility] 36 Regarding lab results from 12/05/2024: MD Aliya Lundberg MA; Alisha Forde MA Her s/creatinine is significantly elevated; this could be due exposure to the contrast during cath. Can we make sure no new meds were started? Please repeat on Saturday 12/09 - if he s.cr is still as high as it is or higher, she may need to be admitted for IV fluids Thanks. LM for patient to return my call. [facility] Telephoneon 12-09-2024 Telephone [id number] Danielle Montana 1965 F Date Provider Department Center 12/09/2024 [id number] WOOTEN [facility] Family History Problem Relation Age of Onset Coronary artery disease Father Family Status - Relation Status Age at Mother Father [facility] HPon 12-06-2024 HP History Of Present Illness Danielle [...] Low Risk (02/05/2024) Received from [facility] Overall Financial Resource Strain (CARDIA) Difficulty of Paying Living Expenses: Not very hard Food Insecurity: No Food Insecurity (02/05/2024) Received from [facility] Hunger Vital Sign Worried About Running Out of Food in the Last Year: Never true Ran Out of Food in the Last Year: Never true Transportation Needs: Unmet Transportation Needs (02/05/2024) Received from [facility] PRAPARE - Transportation Lack of Transportation (Medical): Yes Lack of Transportation (Non-Medical): No Physical Activity: Not on file Stress: Not on file Social Connections: Socially Isolated (02/05/2024) Received from [facility] Social Connection and Isolation Panel [NHANES] Frequency of Communication with Friends and Family: Twice a week Frequency of Social Gatherings with Friends and Family: Never Attends Catholic Services: Never Active Member of Clubs or Organizations: No Attends Club or Organization Meetings: Never Marital Status: Intimate Partner Violence: Not At Risk (05/23/2024) Humiliation, Afraid, Rape, and Kick questionnaire Fear of Current or Ex-Partner: No Emotionally Abused: No Physically Abused: No Sexually Abused: No Housing Stability: Unknown (02/05/2024) Received from [facility] Housing Stability Vital Sign Unable to Pay [...] and agreed to proceed. Abram Man PGY-4 Sap Abap Programmer [facility] [1] Past Medical History: Diagnosis Date Abn (more content not included)... Normal [facility] NURSNOTEon 12-06-2024 NURSNOTE RN educated pt [...] any questions or concerns if pt verbalized. [facility] 36on 11-19-2024 36 Regarding stress test result [...] it. Lab orders entered and faxed to [facility]. Patient verbalized understanding. [facility] Telephoneon 11-19-2024 Telephone [id number] Courtney Montanadevendra Bar 1965 F Date Provider Department [place] 11/19/2024 928-ALISHA FORDE CARD [facility] Family History Problem Relation Age of Onset Coronary artery disease Father Family Status - Relation Status Age at Mother Father [facility] Orders Onlyon 11-11-2024 Orders Only [id number] Danielle [place] Yosvany 1965 F Date Provider Department [place] 11/11/2024 [id number], HISTORICAL JUAN CARD [facility] Family History Problem Relation Age of Onset Coronary artery disease Father Family Status - Relation Status Age at Mother Father [facility] Office Visiton 10-08-2024 Follow-up visit [id number] Danielle [place] Yosvany 1965 Date Provider Department Center 10/08/2024 271-MEHRDAD MCCORMICK Family History Problem Relation Age of Onset Coronary artery disease Father Family Status - Relation Status Age at Mother Father Level of Service:18585 [place] OFFICE/OUTPATIENT ESTABLISHED MOD MDM 30 MIN [facility] 36on 06-11-2024 36 The [employer] is asking you amend your last office visit on 05/20/2024 and document the need for a BP cuff for this patient. Can you do that quick and let me know when it's done? Thank you so much!! :) [facility] Orders Onlyon 06-10-2024 Orders Only [id number] Danielle Montana Yosvany 1965 F Date Provider Department Center 06/10/2024 KEITH TIRADO CARD [facility] Family History Problem Relation Age of Onset Coronary artery disease Father Family Status - Relation Status Age at Father Normal [facility] Telephoneon 05-29-2024 Telephone [id number] DovDanielle mcclendon 1965 F Date Provider Department Center 05/29/2024 271-MEHRDAD MCCORMICK [facility] Family History Problem Relation Age of Onset Coronary artery disease Father Family Status - Relation Status Age at Father Normal [facility] Infusionon 05-23-2024 Infusion [id number] Danielle [place] 1965 F Date Provider Department Center 05/23/2024 [id number] CHAIR 9 DCC INF DCC Family History Problem Relation Age of Onset Coronary artery disease Father Family Status - Relation Status Age at Father Normal [facility] Office Visiton 05-20-2024 Follow-up visit [id number] Danielle [place] 1965 Date Provider Department Center 05/20/2024 271-MEHRDAD MCCORMICK [facility] Family History Problem Relation Age of Onset Coronary artery disease Father Family Status - Relation Status Age at Father Level of Service:87841 [place] OFFICE/OUTPATIENT ESTABLISHED MOD MDM 30 MIN [facility] 36on 03-07-2024 36 Called patient to reschedule their appointment scheduled for 03/[address] Daniels Result: left voicemail to reschedule [facility] BASIC METABOLIC PANLon 01-21 Anion gap [Moles/Vol] 9 mmol/L Normal 5-15 [facility] Comment on above: Performed By: #### C BCA, CMP, 50281-4 #### [facility] ([id number]) [address] [place] [address]86 Calcium [Mass/Vol] 9.5 mg/dL Normal 8.5-10.5 [facility] Comment on above: Performed By: #### C BCA, CMP, 72511-8 #### [facility] ([id number]) [address] [place] [address] 57916 Chloride [Moles/Vol] 101 mmol/L Normal 98-109 [facility] Comment on above: Performed By: #### C BCA, CMP, 59769-7 #### [facility] ([id number]) [address] [place] [address] 63978 CO2 [Moles/Vol] 31 mmol/L Normal 22-32 [facility] Comment on above: Performed By: #### C EDEL POOLE, 12097-2 #### [facility] ([id number]) [address] [place] [address] 98883 Creatinine [Mass/Vol] 1.63 mg/dL High 0.40-1.00 [facility] Comment on above: Result Comment: METH OD TRACEABLE TO IDMS STANDARD Performed By: #### C EDEL POOLE, 51087-2 #### [facility] ([id number]) [address] [place] [address] 05451 GFR/1.73 sq M.predicted among non-blacks MDRD (S/P/Bld) [Vol rate/Area] 36 mL/min/{1.73_m2} Low >59 [facility] Comment on above: Result Comment: Reported eGFR is based on the CKD-EPI 2020 equation that does not use a race coefficient. Performed By: #### C EDEL POOLE, #### [facility] ([id number]) [address] [place] [address] [phone] Glucose [Mass/Vol] 84 mg/dL Normal 65-99 [facility] Comment on above: Performed By: #### C EDEL POOLE, 42280-8 #### [facility] ([id number]) [address] [place] [address] 71713 Potassium [Moles/Vol] 4.3 mmol/L Normal 3.5-5.0 [facility] Comment on above: Performed By: #### C EDEL POOLE, 94314-6 #### [facility] ([id number]) [address] [place] [address] 56538 Sodium [Moles/Vol] 141 mmol/L Normal 134-146 [facility] Comment on above: Performed By: #### C EDEL POOLE, 90948-8 #### [facility] ([id number]) [address] [place] [address] 25588 Urea nitrogen [Mass/Vol] 34 mg/dL High 5-23 [facility] [facility] Comment on above: Performed By: #### C BCA, CMP, 44198-4 #### [facility] ([id number]) [address] [place] [address] [place] [address] BASIC METABOLIC PANLon 01-11 Anion gap [Moles/Vol] 12 mmol/L Normal 5-15 [facility] Comment on above: Performed By: #### 8 9579-7 #### [facility] ([id number]) [address] [place] [address] 23717 Calcium [Mass/Vol] 9.4 mg/dL Normal 8.5-10.5 [facility] Comment on above: Performed By: #### 8 9579-7 #### [facility] ([id number]) [address] [place] [address] 39853 Chloride [Moles/Vol] 104 mmol/L Normal 98-109 [facility] Comment on above: Performed By: #### 8 9579-7 #### [facility] ([id number]) [address] [place] [address] 52825 CO2 [Moles/Vol] 28 mmol/L Normal 22-32 [facility] Comment on above: Performed By: #### 8 9579-7 #### [facility] ([id number]) [address] [place] [address] 43970 Creatinine [Mass/Vol] 1.22 mg/dL High 0.40-1.00 [facility] Comment on above: Result Comment: METH OD TRACEABLE TO IDMS STANDARD Performed By: #### 8 9579-7 #### [facility] ([id number]) [address] [place] [address] [place] [address] GFR/1.73 sq M.predicted among non-blacks MDRD (S/P/Bld) [Vol rate/Area] 51 mL/min/{1.73_m2} Low >59 [facility] Comment on above: Result Comment: Reported eGFR is based on the CKD-EPI 2020 equation that does not use a race coefficient. Performed By: #### 8 9579-7 #### [facility] ([id number]) [address] [place] [address] 16200 Glucose [Mass/Vol] 100 mg/dL High 65-99 [facility] Comment on above: Performed By: #### 8 9579-7 #### [facility] ([id number]) [address] [place] [address] 39768 Potassium [Moles/Vol] 3.8 mmol/L Normal 3.5-5.0 [facility] Comment on above: Performed By: #### 8 9579-7 #### [facility] ([id number]) [address] [place] [address] 95089 Sodium [Moles/Vol] 144 mmol/L Normal 134-146 [facility] Comment on above: Performed By: #### 8 9579-7 #### [facility] ([id number]) [address] [place] [address] 96403 Urea nitrogen [Mass/Vol] 17 mg/dL Normal 5-23 [facility] Comment on above: Performed By: #### 8 9579-7 #### [facility] ([id number]) [address] [place] [address] 06636 COMPLETE BLOOD COUNTon 01-11 Erythrocyte distribution width (RBC) [Ratio] 16.7 % High 11.5-15.0 [facility] Comment on above: Performed By: #### 8 9579-7 #### [facility] ([id number]) [address] [place] [address] 26012 Hematocrit (Bld) [Volume fraction] 33.6 % Low 35-47 [facility] Comment on above: Performed By: #### 8 9579-7 #### [facility] ([id number]) [address] [place] [address] 22777 Hemoglobin (Bld) [Mass/Vol] 11.2 g/dL Low 11.7-15.5 [facility] Comment on above: Performed By: #### 8 9579-7 #### [facility] ([id number]) [address] [place] [address] 72215 MCH (RBC) [Entitic mass] 28.8 pg Normal 27-34 [facility] Comment on above: Performed By: #### 8 9579-7 #### [facility] ([id number]) [address] [place] [address] 87814 MCHC (RBC) [Mass/Vol] 33.3 g/dL Normal 32-36 [facility] Comment on above: Performed By: #### 8 9579-7 #### [facility] ([id number]) [address] [place] [address] 78134 MCV (RBC) [Entitic vol] 87 fL Normal 80-100 [facility] Comment on above: Performed By: #### 8 9579-7 #### [facility] ([id number]) [address] [place] [address] 92698 Platelet mean volume (Bld) [Entitic vol] 9.7 fL Normal 7-12 [facility] Comment on above: Performed By: #### 8 9579-7 #### [facility] ([id number]) [address] [place] [address] 84886 Platelets (Bld) [#/Vol] 268 10*3/uL Normal 150-450 [facility] Comment on above: Performed By: #### 8 9579-7 #### [facility] ([id number]) [address] [place] [address] 65508 RBC COUNT 3.88 X10E12/L Normal 3.80-5.20 [facility] Comment on above: Performed By: #### 8 9579-7 #### [facility] ([id number]) [address] [place] [address] 21689 WBC (Bld) [#/Vol] 8.8 10*3/uL Normal 4.0-11.0 [facility] Comment on above: Performed By: #### 8 9579-7 #### [facility] ([id number]) [address] [place] [address] 02857 Creatinine (U) [Mass/Vol]on 01-12-2024 URINE CREATININE,RDM 107.95 mg/dL Normal Pr [facility] Comment on above: Performed By: #### Shahla POOLE [facility], #### [facility] ([id number]) [address] [place] [address] 96318 HBV core Ab IA Qlon 01-12-20 ANTI HBc Negative Normal NEG [facility] Comment on above: Performed By: #### Shahla POOLE [facility], #### [facility] ([id number]) [address] [place] [address] 73442 HBV surface Ab IA Qnon 01-11 Anti HBs quant. <8.00 Normal [facility] Comment on above: Result Comment: Vacc inated: >=12mIU/mL, Positive (Immune) Unvaccinated: <8mIU/mL, Negative (Not Immune) 8-11.99 mIU/mL: Indeterminate, (Considered Not Immune) Performed By: #### Shahla POOLE CMP, #### [facility] ([id number]) [address] [place] [address] 37365 HBV surface Ag IA Qlon 01-11 HEPATITIS B SURF AG Negative Normal NEG [facility] Comment on above: Performed By: #### C EDEL POOLE, 19551-3 #### [facility] ([id number]) [address] [place] [address] 22578 MAGNESIUMon 01-12-2024 Magnesium [Mass/Vol] 1.6 mg/dL Low 1.8-2.6 [facility] Comment on above: Performed By: #### 8 9579-7 #### [facility] ([id number]) [address] [place] [address] 67289 PHOSPHORUSon 01-12-2024 Phosphate [Mass/Vol] 3.6 mg/dL Normal 2.4-4.9 [facility] Comment on above: Performed By: #### 8 9579-7 #### [facility] ([id number]) [address] [place] [address] 11889 PROTEIN CREAT RATIOon 2023 RANDOM URINE PROTEIN 4520 mg/L High <120 [facility] Comment on above: Performed By: #### C VIRGILIO [facility], 45775-0 #### [facility] ([id number]) [address] [place] [address] 70765 U/PRO/AFTER SCHOOL COORDINATOR RATIO CALC 4.15 High <0.2 [facility] Comment on above: Result Comment: Neph rotic Syndrome is associated with ratios >3.5 Performed By: #### C EDEL POOLE, 79145-2 #### [facility] ([id number]) [address] [place] [address] 51126 URINE CREATININE,RDM 108.96 mg/dL Normal Pr [facility] Comment on above: Performed By: #### C EDEL POOLE, 86357-2 #### [facility] ([id number]) [address] [place] [address] 95525 Parathyrin.intact [Mass/Vol] on 01-12-2024 PTH INTACT 69 pg/mL Normal 12-88 [facility] Comment on above: Performed By: #### C BCA, CMP, 80998-5 #### [facility] ([id number]) [address] [place] [address] 42271 Protein (U) [Mass/Vol]on RANDOM URINE PROTEIN 4560 mg/L High <120 [facility] Comment on above: Performed By: #### C BCA, CMP, #### [facility] ([id number]) [address] [place] [address] [place] [address] URINALYSISon 01-12-2024 Bilirubin Ql (U) Negative Normal NEG [facility] Comment on above: Performed By: #### C BCA, CMP, #### [facility] ([id number]) [address] [place] [address] 74361 BLOOD/HGB Small Abnormal NEG [facility] Comment on above: Performed By: #### C BCA, CMP, 28271-3 #### [facility] ([id number]) [address] [place] [address] 08022 Color (U) YELLOW Normal YELLOW [facility] Comment on above: Performed By: #### C BCA, CMP, 23330-5 #### [facility] ([id number]) [address] [place] [address] 98050 Glucose Ql (U) Negative Normal NEG [facility] Comment on above: Performed By: #### C BCA, CMP, 20953-8 #### [facility] ([id number]) [address] [place] [address] 90181 Hyaline casts LM Ql (Urine sed) 1 /lpf Normal 0-2 [facility] Comment on above: Performed By: #### C BCA, CMP, 29739-4 #### [facility] ([id number]) [address] [place] [address], [place] [address] Ketones Ql (U) Negative Normal NEG [facility] Comment on above: Performed By: #### C VIRGILIO CMP, 11437-9 #### [facility] ([id number]) [address] [place] [address] 54868 Leukocyte esterase Test strip Ql (U) Negative Normal NEG [facility] Comment on above: Performed By: #### Shahla POOLE CMP, 97064-3 #### [facility] ([id number]) [address] [place] [address] 00063 MUCOUS PRESENT Abnormal NONE [facility] Comment on above: Performed By: #### C VIRGILIO CMP, 45096-5 #### [facility] ([id number]) [address] [place] [address] 12691 Nitrite Ql (U) Negative Normal NEG [facility] Comment on above: Performed By: #### C VIRGILIO [facility], 36916-2 #### [facility] ([id number]) [address] [place] [address] 06974 pH (U) 6.5 [pH] Normal 5.0-8.5 [facility] Comment on above: Performed By: #### C VIRGILIO, CMP, 28543-2 #### [facility] ([id number]) [address] [place] [address] 76009 Protein Ql (U) 300 mg/dL Abnormal NEG [facility] Comment on above: Performed By: #### C VIRGILIO, CMP, 74895-0 #### [facility] ([id number]) [address] [place] [address] 90040 R.B.CELLS 0 /hpf Normal 0-5 [facility] Comment on above: Performed By: #### C VIRGILIO, CMP, 19175-0 #### [facility] ([id number]) [address] [place] [address] 31152 Specific gravity (U) [Rel density] 1.015 Normal 1.003-1.03 5 [facility] Comment on above: Performed By: #### Shahla POOLE [facility], 80843-0 #### [facility] ([id number]) [address] [place] [address] 20800 SQUAMOUS EPITHELIUM 1 /hpf Normal 0-5 [facility] Comment on above: Performed By: #### Shahla POOLE [facility], 80804-8 #### [facility] ([id number]) [address] [place] [address] 62229 TURBIDITY CLEAR Normal CLEAR [facility] Comment on above: Performed By: #### Shahla POOLE [facility], 14471-3 #### [facility] ([id number]) [address] [place] [address] 28716 Urobilinogen (U) [Mass/Vol] mg/dL Normal <1.1 [facility] Comment on above: Performed By: #### Shahla POOLE [facility], 74345-5 #### [facility] ([id number]) [address] [place] [address] 85987 W.B.CELLS 2 /hpf Normal 0-5 [facility] Comment on above: Performed By: #### Shahla POOLE [facility], 13166-0 #### [facility] ([id number]) [address] [place] [address] 64778 Vitamin D+Metabolites [Mass/ Vol]on 01-12-2024 VITAMIN D 25 HYD TOT 23.5 ng/mL Low 30-100 [facility] Comment on above: Result Comment: Vitamin D status 25 [place] Vitamin D Deficiency <20 ng/mL Insufficiency 20-29 ng/mL Sufficiency 30-100 ng/mL Toxicity >100 ng/mL NOTE: A pediatric reference range has not been established by the fitting supervisor of this kit. The [place] [employer] recommends a Vitamin D level of = or >20ng/mL in infants and children. Performed By: #### Shahla POOLE CMP, #### [facility] ([id number]) [address] [place] [address], [place] [address] COMPLETE BLOOD COUNTon 12-18 Erythrocyte distribution width (RBC) [Ratio] 16.7 % High 11.5-15.0 [facility] Comment on above: Performed By: #### C EDEL POOLE, , 2776-04, 1987-08 #### [facility] ([id number]) [address], [address] [place] [address] Hematocrit (Bld) [Volume fraction] 30.1 % Low 35-47 [facility] Comment on above: Performed By: #### Shahla POOLE CMP, , 2776-04, 1987-08 #### [facility] ([id number]) [address], [address] [place] [address] Hemoglobin (Bld) [Mass/Vol] 9.6 g/dL Low 11.7-15.5 [facility] Comment on above: Performed By: #### Shahla POOLE CMP, , 2776-04, 1987-08 #### [facility] ([id number]) [address], [address] [place] [address] MCH (RBC) [Entitic mass] 27.3 pg Normal 27-34 [facility] Comment on above: Performed By: #### Shahla POOLE CMP, , 2776-04, 1987-08 #### [facility] ([id number]) [address], [address] [place] [address] MCHC (RBC) [Mass/Vol] 32.0 g/dL Normal 32-36 [facility] Comment on above: Performed By: #### Shahla POOLE CMP, , 2776-04, 1987-08 #### [facility] ([id number]) [address], [address] [place] [address] MCV (RBC) [Entitic vol] 86 fL Normal 80-100 [facility] Comment on above: Performed By: #### C BCA, CMP, , 2776-04, 1987-08 #### [facility] ([id number]) [address], [address] [place] [address] Platelet mean volume (Bld) [Entitic vol] 9.1 fL Normal 7-12 [facility] Comment on above: Performed By: #### C BCA, CMP, , 2776-04, 1987-08 #### [facility] ([id number]) [address], [address] [place] [address] Platelets (Bld) [#/Vol] 361 10*3/uL Normal 150-450 [facility] Comment on above: Performed By: #### C BCA, CMP, , 2776-04, 1987-08 #### [facility] ([id number]) [address], [address] [place] [address] RBC COUNT 3.52 X10E12/L Low 3.80-5.20 [facility] Comment on above: Performed By: #### C BCA, CMP, , 2776-04, 1987-08 #### [facility] ([id number]) [address], [address] [place] [address] WBC (Bld) [#/Vol] 8.2 10*3/uL Normal 4.0-11.0 [facility] Comment on above: Performed By: #### C BCA, CMP, , 2776-04, 1987-08 #### [facility] ([id number]) [address], [address] [place] [address] COMPREHENSIVE METABOLIC PANE Phu 12-19-2023 Albumin [Mass/Vol] 3.4 g/dL Normal 3.2-5.3 [facility] Comment on above: Performed By: #### C BCA, CMP, , 2776-04, 1987-08 #### [facility] ([id number]) [address], [address] [place] [address] ALP [Catalytic activity/Vol] 60 U/L Normal 39-130 [facility] Comment on above: Performed By: #### C BCA, CMP, , 2776-04, 1987-08 #### [facility] ([id number]) [address], [address] [place] [address] ALT [Catalytic activity/Vol] 12 U/L Normal 0-31 [facility] Comment on above: Performed By: #### C BCA, CMP, , 2776-04, 1987-08 #### [facility] ([id number]) [address], [address] [place] [address] Anion gap [Moles/Vol] 9 mmol/L Normal 5-15 [facility] Comment on above: Performed By: #### C BCA, CMP, , 2776-04, 1987-08 #### [facility] ([id number]) [address], [address] [place] [address] AST [Catalytic activity/Vol] 13 U/L Normal 0-41 [facility] Comment on above: Performed By: #### C BCA, CMP, , 2776-04, 1987-08 #### [facility] ([id number]) [address], [address] [place] [address] Bilirubin [Mass/Vol] 0.4 mg/dL Normal 0.3-1.2 [facility] Comment on above: Performed By: #### C BCA, CMP, , 2776-04, 1987-08 #### [facility] ([id number]) [address], [address] [place] [address] Calcium [Mass/Vol] 9.5 mg/dL Normal 8.5-10.5 [facility] Comment on above: Performed By: #### C BCA, CMP, , 2776-04, 1987-08 #### [facility] ([id number]) [address], [address] [place] [address] Chloride [Moles/Vol] 105 mmol/L Normal 98-109 [facility] Comment on above: Performed By: #### C BCA, CMP, , 2776-04, 1987-08 #### [facility] ([id number]) [address], [address] [place] [address] CO2 [Moles/Vol] 28 mmol/L Normal 22-32 [facility] Comment on above: Performed By: #### C BCA, CMP, , 2776-04, 1987-08 #### [facility] ([id number]) [address], [address] [place] [address] Creatinine [Mass/Vol] 1.23 mg/dL High 0.40-1.00 [facility] Comment on above: Result Comment: METH OD TRACEABLE TO IDMS STANDARD Performed By: #### C BCA, CMP, , 2776-04, 1987-08 #### [facility] ([id number]) [address], [address] [place] [address] GFR/1.73 sq M.predicted among non-blacks MDRD (S/P/Bld) [Vol rate/Area] 51 mL/min/{1.73_m2} Low >59 [facility] Comment on above: Result Comment: Reported eGFR is based on the CKD-EPI 2020 equation that does not use a race coefficient. Performed By: #### C BCA, CMP, , 2776-04, 1987-08 #### [facility] ([id number]) [address], [address] [place] [address] Glucose [Mass/Vol] 89 mg/dL Normal 65-99 [facility] Comment on above: Performed By: #### C BCA, CMP, , 2776-04, 1987-08 #### [facility] ([id number]) [address], [address] [place] [address] Potassium [Moles/Vol] 4.9 mmol/L Normal 3.5-5.0 [facility] Comment on above: Performed By: #### C BCA, CMP, , 2776-04, 1987-08 #### [facility] ([id number]) [address] [place] [address] Protein [Mass/Vol] 6.0 g/dL Normal 6.0-8.0 [facility] Comment on above: Performed By: #### C BCA, CMP, , 2776-04, 1987-08 #### [facility] ([id number]) [address] [place] [address] Sodium [Moles/Vol] 142 mmol/L Normal 134-146 [facility] Comment on above: Performed By: #### C BCA, CMP, , 2776-04, 1987-08 #### [facility] ([id number]) [address], [address] [place] [address] Urea nitrogen [Mass/Vol] 21 mg/dL Normal 5-23 [facility] Comment on above: Performed By: #### C BCA, CMP, , 2776-04, 1987-08 #### [facility] ([id number]) [address], [address] [place] [address] CRP [Mass/Vol]on 12-19-2023 C REACTIVE PROTEIN 0.8 mg/dL High 0.000-0.7 4 4 [facility] Comment on above: Performed By: #### C VIRGILIO CMP, , 2776-04, 1987-08 #### [facility] ([id number]) [address], [address] [place] [address] ESR Photometric method (Bld) [Velocity]on 12-19-2023 ESR, ERYTHROCYTE SEDIMENTATION RATE 67 mm/h High 0-30 [facility] Comment on above: Performed By: #### C VIRGILIO, CMP, , 2776-04, 1987-08 #### [facility] ([id number]) [address], [address] [place] [address] Neutrophil cytoplasmic Ab pa selvin IF (S)on 12-19-2023 c-ANCA Negative Normal Negative [facility] Comment on above: Performed By: #### C VIRGILIO EDEL, , 2776-04, 1987-08 #### [facility] ([id number]) [address], [address] [place] [address] p-ANCA Positive Abnormal Negative [facility] Comment on above: Result Comment: NOTE Positive for pANCA pattern by immunofluorescence. Suggest further testing for anti-myeloperoxidase (anti-MPO) antibodies, if clinically indicated. ADDITIONAL INFORMATION This test was developed and its performance characteristics determined by [facility] in a manner consistent with CLIA requirements. This test has not been cleared or approved by the U.S. Food and Drug Administration. Test Performed by: [facility] [address] [place] [address] Mix Maker: Ledy Son Ph.D.; CLIA# [id number] Performed By: #### C VIRGILIO, CMP, , 2776-04, 1987-08 #### [facility] ([id number]) [address], [address] [place] [address] CBC AND AUTO DIFFon 11-07-19 24 ABSOLUTE BASOPHIL 0.0 X10E9/L Normal 0.0-0.2 [facility] Comment on above: Performed By: #### C BCA, CMP, , 2776-04, 1987-08 #### [facility] ([id number]) [address], [address] [place] [address] ABSOLUTE NEUTROPHIL 12.2 X10E9/L High 1.5-6.6 [facility] Comment on above: Performed By: #### C BCA, CMP, , 2776-04, 1987-08 #### [facility] ([id number]) [address], [address] [place] [address] Basophils/100 WBC (Bld) 0.2 % Normal [facility] Comment on above: Performed By: #### C BCA, CMP, , 2776-04, 1987-08 #### [facility] ([id number]) [address], [address] [place] [address] Eosinophils (Bld) [#/Vol] 0.0 10*3/uL Normal 0.0-0.4 [facility] Comment on above: Performed By: #### C BCA, CMP, , 2776-04, 1987-08 #### [facility] ([id number]) [address], [address] [place] [address] Eosinophils/100 WBC (Bld) 0.0 % Normal [facility] Comment on above: Performed By: #### C BCA, CMP, , 2776-04, 1987-08 #### [facility] ([id number]) [address], [address] [place] [address] Erythrocyte distribution width (RBC) [Ratio] 15.6 % High 11.5-15.0 [facility] Comment on above: Performed By: #### C BCA, CMP, , 2776-04, 1987-08 #### [facility] ([id number]) [address] [place] [address] Hematocrit (Bld) [Volume fraction] 32.0 % Low 35-47 [facility] Comment on above: Performed By: #### Shahla POOLE CMP, , 2776-04, 1987-08 #### [facility] ([id number]) [address], [address] [place] [address] Hemoglobin (Bld) [Mass/Vol] 10.4 g/dL Low 11.7-15.5 [facility] Comment on above: Performed By: #### Shahla POOLE CMP, , 2776-04, 1987-08 #### [facility] ([id number]) [address], [address] [place] [address] Lymphocytes (Bld) [#/Vol] 0.3 10*3/uL Low 1.0-3.5 [facility] Comment on above: Performed By: #### Shahla POOLE CMP, , 2776-04, 1987-08 #### [facility] ([id number]) [address], [address] [place] [address] Lymphocytes/100 WBC (Bld) 2.6 % Normal [facility] Comment on above: Performed By: #### Shahla POOLE CMP, , 2776-04, 1987-08 #### [facility] ([id number]) [address], [address] [place] [address] MCH (RBC) [Entitic mass] 27.6 pg Normal 27-34 [facility] Comment on above: Performed By: #### Shahla BCA, CMP, , 2776-04, 1987-08 #### [facility] ([id number]) [address], [address] [place] [address] MCHC (RBC) [Mass/Vol] 32.4 g/dL Normal 32-36 [facility] Comment on above: Performed By: #### C BCA, CMP, , 2776-04, 1987-08 #### [facility] ([id number]) [address], [address] [place] [address] MCV (RBC) [Entitic vol] 85 fL Normal 80-100 P [facility] Comment on above: Performed By: #### Shahla BCA, CMP, , 2776-04, 1987-08 #### [facility] ([id number]) [address], [address] [place] [address] Monocytes (Bld) [#/Vol] 0.2 10*3/uL Normal 0-0.9 [facility] Comment on above: Performed By: #### Shahla BCA, CMP, , 2776-04, 1987-08 #### [facility] ([id number]) [address], [address] [place] [address] Monocytes/100 WBC (Bld) 1.8 % Normal [facility] Comment on above: Performed By: #### Shahla POOLE, CMP, , 2776-04, 1987-08 #### [facility] ([id number]) [address], [address] [place] [address] Neutrophils/100 WBC (Bld) 95.4 % Normal [facility] Comment on above: Performed By: #### Shahla BCA, CMP, , 2776-04, 1987-08 #### [facility] ([id number]) [address], [address] [place] [address] Platelet mean volume (Bld) [Entitic vol] 9.1 fL Normal 7-12 [facility] Comment on above: Performed By: #### Shahla BCA, CMP, , 2776-04, 1987-08 #### [facility] ([id number]) [address], [address] [place] [address] Platelets (Bld) [#/Vol] 183 10*3/uL Normal 150-450 [facility] Comment on above: Performed By: #### C BCA, CMP, , 2776-04, 1987-08 #### [facility] ([id number]) [address], [address] [place] [address] RBC COUNT 3.76 X10E12/L Low 3.80-5.20 [facility] Comment on above: Performed By: #### C BCA, CMP, , 2776-04, 1987-08 #### [facility] ([id number]) [address], [address] [place] [address] WBC (Bld) [#/Vol] 12.8 10*3/uL High 4.0-11.0 [facility] Comment on above: Performed By: #### C BCA, CMP, , 2776-04, 1987-08 #### [facility] ([id number]) [address], [address] [place] [address] COMPREHENSIVE METABOLIC PANE Phu 11-07-2023 Albumin [Mass/Vol] 3.5 g/dL Normal 3.2-5.3 [facility] Comment on above: Performed By: #### C BCA, CMP, , 2776-04, 1987-08 #### [facility] ([id number]) [address], [address] [place] [address] ALP [Catalytic activity/Vol] 46 U/L Normal 39-130 [facility] Comment on above: Performed By: #### C BCA, CMP, , 2776-04, 1987-08 #### [facility] ([id number]) [address], [address] [place] [address] ALT [Catalytic activity/Vol] 31 U/L Normal 0-31 [facility] Comment on above: Performed By: #### C BCA, CMP, , 2776-04, 1987-08 #### [facility] ([id number]) [address], [address] [place] [address] Anion gap [Moles/Vol] 9 mmol/L Normal 5-15 [facility] Comment on above: Performed By: #### C BCA, CMP, , 2776-04, 1987-08 #### [facility] ([id number]) [address], [address] [place] [address] AST [Catalytic activity/Vol] 10 U/L Normal 0-41 [facility] Comment on above: Performed By: #### C BCA, CMP, , 2776-04, 1987-08 #### [facility] ([id number]) [address], [address] [place] [address] Bilirubin [Mass/Vol] 0.5 mg/dL Normal 0.3-1.2 [facility] Comment on above: Performed By: #### C BCA, CMP, , 2776-04, 1987-08 #### [facility] ([id number]) [address], [address] [place] [address] Calcium [Mass/Vol] 9.1 mg/dL Normal 8.5-10.5 [facility] Comment on above: Performed By: #### C BCA, CMP, , 2776-04, 1987-08 #### [facility] ([id number]) [address], [address] [place] [address] Chloride [Moles/Vol] 104 mmol/L Normal 98-109 [facility] Comment on above: Performed By: #### C BCA, CMP, , 2776-04, 1987-08 #### [facility] ([id number]) [address], [address] [place] [address] CO2 [Moles/Vol] 26 mmol/L Normal 22-32 [facility] Comment on above: Performed By: #### C BCA, CMP, , 2776-04, 1987-08 #### [facility] ([id number]) [address], [address] [place] [address] Creatinine [Mass/Vol] 1.60 mg/dL High 0.40-1.00 [facility] Comment on above: Result Comment: METH OD TRACEABLE TO IDMS STANDARD Performed By: #### C VIRGILIO, CMP, , 2776-04, 1987-08 #### [facility] ([id number]) [address], [address] [place] [address] GFR/1.73 sq M.predicted among non-blacks MDRD (S/P/Bld) [Vol rate/Area] 37 mL/min/{1.73_m2} Low >59 [facility] Comment on above: Result Comment: Reported eGFR is based on the CKD-EPI 2020 equation that does not use a race coefficient. Performed By: #### C VIRGILIO, CMP, , 2776-04, 1987-08 #### [facility] ([id number]) [address], [address] [place] [address] Glucose [Mass/Vol] 119 mg/dL High 65-99 [facility] Comment on above: Performed By: #### C VIRGILIO, CMP, , 2776-04, 1987-08 #### [facility] ([id number]) [address], [address] [place] [address] Potassium [Moles/Vol] 5.2 mmol/L High 3.5-5.0 [facility] Comment on above: Performed By: #### C BCA, CMP, , 2776-04, 1987-08 #### [facility] ([id number]) [address], [address] [place] [address] Protein [Mass/Vol] 5.3 g/dL Low 6.0-8.0 [facility] Comment on above: Performed By: #### C BCA, CMP, , 2776-04, 1987-08 #### [facility] ([id number]) [address], [address] [place] [address] Sodium [Moles/Vol] 139 mmol/L Normal 134-146 [facility] Comment on above: Performed By: #### C BCA, CMP, , 2776-04, 1987-08 #### [facility] ([id number]) [address], [address] [place] [address] Urea nitrogen [Mass/Vol] 52 mg/dL High 5-23 [facility] Comment on above: Performed By: #### C BCA, CMP, , 2776-04, 1987-08 #### [facility] ([id number]) [address], [address] [place] [address] M. tuberculosis stim IFN-g p tiffanie (Bld)on 11-07-2023 Mitogen minus Nil Result 0.07 IU/mL Normal [facility] Nil Result 0.01 IU/mL Normal [facility] Comment on above: Result Comment: NOTE Test Performed by: [facility] [address] [place] [address] Mix Maker: Ledy Son Ph.D.; CLIA# [id number] QuantiFERON-Tb Gold Plus Result Indeterminate Abnormal Negative [facility] Comment on above: Result Comment: NOTE Indeterminate due to a low interferon-gamma level in the mitogen (positive control) tube. This may occur due to a low lymphocyte count, reduced lymphocyte activity or inability of the patient's lymphocytes to generate interferon-gamma. The reference range for the 'Mitogen minus Nil Result' is >=0.5 IU/mL. TB1 Ag minus Nil Result 0.00 IU/mL Normal [facility] TB2 Ag minus Nil Result 0.00 IU/mL Normal [facility] BASIC METABOLIC PANLon 11-01 Anion gap [Moles/Vol] 9 mmol/L Normal 5-15 [facility] Comment on above: Performed By: #### 8 9579-7 #### [facility] ([id number]) [address] [place] [address] Calcium [Mass/Vol] 8.5 mg/dL Normal 8.5-10.5 [facility] Comment on above: Performed By: #### 8 9579-7 #### [facility] ([id number]) [address] [place] [address] Chloride [Moles/Vol] 108 mmol/L Normal 98-109 [facility] Comment on above: Performed By: #### 8 9579-7 #### [facility] ([id number]) [address] [place] [address] CO2 [Moles/Vol] 24 mmol/L Normal 22-32 [facility] Comment on above: Performed By: #### 8 9579-7 #### [facility] ([id number]) [address] [place] [address] Creatinine [Mass/Vol] 1.59 mg/dL High 0.40-1.00 [facility] Comment on above: Result Comment: METH OD TRACEABLE TO IDMS STANDARD Performed By: #### 8 9579-7 #### [facility] ([id number]) [address] [place] [address] GFR/1.73 sq M.predicted among non-blacks MDRD (S/P/Bld) [Vol rate/Area] 37 mL/min/{1.73_m2} Low >59 [facility] Comment on above: Result Comment: Reported eGFR is based on the CKD-EPI 1 equation that does not use a race coefficient. Performed By: #### 8 9579-7 #### [facility] ([id number]) [address] [place] [address] Glucose [Mass/Vol] 109 mg/dL High 65-99 [facility] Comment on above: Performed By: #### 8 9579-7 #### [facility] ([id number]) [address] [place] [address] Potassium [Moles/Vol] 3.9 mmol/L Normal 3.5-5.0 [facility] Comment on above: Performed By: #### 8 9579-7 #### [facility] ([id number]) [address] [place] [address] Sodium [Moles/Vol] 141 mmol/L Normal 134-146 [facility] Comment on above: Performed By: #### 8 9579-7 #### [facility] ([id number]) [address] [place] [address] Urea nitrogen [Mass/Vol] 40 mg/dL High 5-23 [facility] Comment on above: Performed By: #### 8 9579-7 #### [facility] ([id number]) [address] [place] [address] CBC AND AUTO DIFFon 10-25-19 24 ABSOLUTE BASOPHIL 0.1 X10E9/L Normal 0.0-0.2 [facility] Comment on above: Performed By: #### C VIRGILIO, CMP, , 2776-04, 1987-08 #### [facility] ([id number]) [address], [address] [place] [address] ABSOLUTE NEUTROPHIL 6.5 X10E9/L Normal 1.5-6.6 [facility] Comment on above: Performed By: #### C BCA, CMP, , 2776-04, 1987-08 #### [facility] ([id number]) [address], [address] [place] [address] Basophils/100 WBC (Bld) 0.6 % Normal [facility] Comment on above: Performed By: #### C BCA, CMP, , 2776-04, 1987-08 #### [facility] ([id number]) [address], [address] [place] [address] Eosinophils (Bld) [#/Vol] 0.0 10*3/uL Normal 0.0-0.4 [facility] Comment on above: Performed By: #### C BCA, CMP, , 2776-04, 1987-08 #### [facility] ([id number]) [address], [address] [place] [address] Eosinophils/100 WBC (Bld) 0.4 % Normal [facility] Comment on above: Performed By: #### C BCA, CMP, , 2776-04, 1987-08 #### [facility] ([id number]) [address] [place] [address] Erythrocyte distribution width (RBC) [Ratio] 14.5 % Normal 11.5-15.0 [facility] Comment on above: Performed By: #### Shahla POOLE, CMP, , 2776-04, 1987-08 #### [facility] ([id number]) [address] [address] [place] [address] Hematocrit (Bld) [Volume fraction] 30.5 % Low 35-47 [facility] Comment on above: Performed By: #### C BCA, CMP, , 2776-04, 1987-08 #### [facility] ([id number]) [address], [address] [place] [address] Hemoglobin (Bld) [Mass/Vol] 10.5 g/dL Low 11.7-15.5 [facility] Comment on above: Performed By: #### C BCA, CMP, , 2776-04, 1987-08 #### [facility] ([id number]) [address], [address] [place] [address] Lymphocytes (Bld) [#/Vol] 1.4 10*3/uL Normal 1.0-3.5 [facility] Comment on above: Performed By: #### Shahla POOLE CMP, , 2776-04, 1987-08 #### [facility] ([id number]) [address] [address] Lymphocytes/100 WBC (Bld) 16.2 % Normal [facility] Comment on above: Performed By: #### Shahla POOLE, CMP, , 2776-04, 1987-08 #### [facility] ([id number]) [address] [address] MCH (RBC) [Entitic mass] 28.5 pg Normal 27-34 [facility] Comment on above: Performed By: #### Shahla BCA, CMP, , 2776-04, 1987-08 #### [facility] ([id number]) [address] [address] MCHC (RBC) [Mass/Vol] 34.4 g/dL Normal 32-36 [facility] Comment on above: Performed By: #### Shahla BCA, CMP, , 2776-04, 1987-08 #### [facility] ([id number]) [address] [address] MCV (RBC) [Entitic vol] 83 fL Normal 80-100 [facility] Comment on above: Performed By: #### Shahla BCA, CMP, , 2776-04, 1987-08 #### [facility] ([id number]) [address] [address] Monocytes (Bld) [#/Vol] 0.5 10*3/uL Normal 0-0.9 [facility] Comment on above: Performed By: #### Shahla BCA, CMP, , 2776-04, 1987-08 #### [facility] ([id number]) [address], [address] [place] [address] Monocytes/100 WBC (Bld) 5.9 % Normal P [facility] Comment on above: Performed By: #### Shahla BCA, CMP, , 2776-04, 1987-08 #### [facility] ([id number]) [address], [address] [place] [address] Neutrophils/100 WBC (Bld) 76.9 % Normal [facility] Comment on above: Performed By: #### Shahla BCA, CMP, , 2776-04, 1987-08 #### [facility] ([id number]) [address] [place] [address] Platelet mean volume (Bld) [Entitic vol] 9.1 fL Normal 7-12 [facility] Comment on above: Performed By: #### Shahla BCA, CMP, , 2776-04, 1987-08 #### [facility] ([id number]) [address], [address] [place] [address] Platelets (Bld) [#/Vol] 248 10*3/uL Normal 150-450 [facility] Comment on above: Performed By: #### Shahla BCA, CMP, , 2776-04, 1987-08 #### [facility] ([id number]) [address], [address] [place] [address] RBC COUNT 3.68 X10E12/L Low 3.80-5.20 [facility] Comment on above: Performed By: #### Shahla BCA, CMP, , 2776-04, 1987-08 #### [facility] ([id number]) [address], [address] [place] [address] RBC morphology finding Nom (Bld) REVIEWED Normal [facility] Comment on above: Performed By: #### C BCA, CMP, , 2776-04, 1987-08 #### [facility] ([id number]) [address], [address] [place] [address] WBC (Bld) [#/Vol] 8.4 10*3/uL Normal 4.0-11.0 [facility] Comment on above: Performed By: #### C BCA, CMP, , 2776-04, 1987-08 #### [facility] ([id number]) [address] [place] [address] COMPREHENSIVE METABOLIC PANE Phu 10-25-2023 Albumin [Mass/Vol] 3.1 g/dL Low 3.2-5.3 [facility] Comment on above: Performed By: #### C BCA, CMP, , 2776-04, 1987-08 #### [facility] ([id number]) [address] [place] [address] ALP [Catalytic activity/Vol] 35 U/L Low 39-130 [facility] Comment on above: Performed By: #### C BCA, CMP, , 2776-04, 1987-08 #### [facility] ([id number]) [address] [place] [address] ALT [Catalytic activity/Vol] 8 U/L Normal 0-31 [facility] Comment on above: Performed By: #### C BCA, CMP, , 2776-04, 1987-08 #### [facility] ([id number]) [address] [place] [address] Anion gap [Moles/Vol] 9 mmol/L Normal 5-15 [facility] Comment on above: Performed By: #### C BCA, CMP, , 2776-04, 1987-08 #### [facility] ([id number]) [address], [address] [place] [address] AST [Catalytic activity/Vol] 10 U/L Normal 0-41 [facility] Comment on above: Performed By: #### C BCA, CMP, , 2776-04, 1987-08 #### [facility] ([id number]) [address], [address] [place] [address] Bilirubin [Mass/Vol] 0.3 mg/dL Normal 0.3-1.2 [facility] Comment on above: Performed By: #### C BCA, CMP, , 2776-04, 1987-08 #### [facility] ([id number]) [address] [place] [address] Calcium [Mass/Vol] 8.6 mg/dL Normal 8.5-10.5 [facility] Comment on above: Performed By: #### C BCA, CMP, , 2776-04, 1987-08 #### [facility] ([id number]) [address] [place] [address] Chloride [Moles/Vol] 106 mmol/L Normal 98-109 [facility] Comment on above: Performed By: #### C BCA, CMP, , 2776-04, 1987-08 #### [facility] ([id number]) [address], [address] [place] [address] CO2 [Moles/Vol] 25 mmol/L Normal 22-32 [facility] Comment on above: Performed By: #### C BCA, CMP, , 2776-04, 1987-08 #### [facility] ([id number]) [address] [place] [address] Creatinine [Mass/Vol] 2.12 mg/dL High 0.40-1.00 [facility] Comment on above: Result Comment: METH OD TRACEABLE TO IDMS STANDARD Performed By: #### C BCA, CMP, , 2776-04, 1987-08 #### [facility] ([id number]) [address], [facility] [address] [place] [address] GFR/1.73 sq M.predicted among non-blacks MDRD (S/P/Bld) [Vol rate/Area] 26 mL/min/{1.73_m2} Low >59 [facility] Comment on above: Result Comment: Reported eGFR is based on the CKD-EPI 2020 equation that does not use a race coefficient. Performed By: #### C VIRGILIO CMP, , 2776-04, 1987-08 #### [facility] ([id number]) [address] [place] [address] Glucose [Mass/Vol] 81 mg/dL Normal 65-99 [facility] Comment on above: Performed By: #### C VIRGILIO CMP, , 2776-04, 1987-08 #### [facility] ([id number]) [address] [place] [address] Potassium [Moles/Vol] 4.1 mmol/L Normal 3.5-5.0 [facility] Comment on above: Performed By: #### C VIRGILIO, CMP, , 2776-04, 1987-08 #### [facility] ([id number]) [address] [place] [address] Protein [Mass/Vol] 4.9 g/dL Low 6.0-8.0 [facility] Comment on above: Performed By: #### C BCA, CMP, , 2776-04, 1987-08 #### [facility] ([id number]) [address], [address] [place] [address] Sodium [Moles/Vol] 140 mmol/L Normal 134-146 [facility] Comment on above: Performed By: #### C BCA, CMP, , 2776-04, 1987-08 #### [facility] ([id number]) [address] [place] [address] Urea nitrogen [Mass/Vol] 58 mg/dL High 5-23 [facility] Comment on above: Performed By: #### C VIRGILIO, CMP, , 2776-04, 1987-08 #### [facility] ([id number]) [address] [place] [address] Calcium.ionized (Bld) [Mass/ Vol]on 10-25-2023 IONIZED CALCIUM 4.8 mg/dL Normal 4.5-5.3 [facility] Comment on above: Performed By: #### C VIRGILIO, CMP, , 2776-04, 1987-08 #### [facility] ([id number]) [address] [place] [address] MAGNESIUMon 10-25-2023 Magnesium [Mass/Vol] 2.1 mg/dL Normal 1.8-2.6 [facility] Comment on above: Performed By: #### C VIRGILIO, CMP, , 2776-04, 1987-08 #### [facility] ([id number]) [address] [place] [address] PHOSPHORUSon 10-25-2023 Phosphate [Mass/Vol] 3.5 mg/dL Normal 2.4-4.9 [facility] Comment on above: Performed By: #### C BCA, CMP, , 2776-04, 1987-08 #### [facility] ([id number]) [address], [address] [place] [address] CBC AND AUTO DIFFon 10-24-19 24 ABSOLUTE BASOPHIL 0.0 X10E9/L Normal 0.0-0.2 [facility] Comment on above: Performed By: #### Shahla BCA, CMP, , 2776-04, 1987-08 #### [facility] ([id number]) [address] [place] [address] ABSOLUTE NEUTROPHIL 7.2 X10E9/L High 1.5-6.6 [facility] Comment on above: Performed By: #### C BCA, CMP, , 2776-04, 1987-08 #### [facility] ([id number]) [address] [place] [address] Basophils/100 WBC (Bld) 0.1 % Normal [facility] Comment on above: Performed By: #### C BCA, CMP, , 2776-04, 1987-08 #### [facility] ([id number]) [address] [place] [address] Eosinophils (Bld) [#/Vol] 0.0 10*3/uL Normal 0.0-0.4 [facility] Comment on above: Performed By: #### C BCA, CMP, , 2776-04, 1987-08 #### [facility] ([id number]) [address] [place] [address] Eosinophils/100 WBC (Bld) 0.2 % Normal [facility] Comment on above: Performed By: #### C BCA, CMP, , 2776-04, 1987-08 #### [facility] ([id number]) [address] [place] [address] Erythrocyte distribution width (RBC) [Ratio] 14.7 % Normal 11.5-15.0 [facility] Comment on above: Performed By: #### C BCA, CMP, , 2776-04, 1987-08 #### [facility] ([id number]) [address] [place] [address] Hematocrit (Bld) [Volume fraction] 31.4 % Low 35-47 [facility] Comment on above: Performed By: #### C BCA, CMP, , 2776-04, 1987-08 #### [facility] ([id number]) [address] [place] [address] Hemoglobin (Bld) [Mass/Vol] 10.5 g/dL Low 11.7-15.5 [facility] Comment on above: Performed By: #### Shahla BCA, CMP, , 2776-04, 1987-08 #### [facility] ([id number]) [address] [place] [address] Lymphocytes (Bld) [#/Vol] 3.1 10*3/uL Normal 1.0-3.5 [facility] Comment on above: Performed By: #### Shahla BCA, CMP, , 2776-04, 1987-08 #### [facility] ([id number]) [address] [place] [address] Lymphocytes/100 WBC (Bld) 27.5 % Normal [facility] Comment on above: Performed By: #### Shahla POOLE, CMP, , 2776-04, 1987-08 #### [facility] ([id number]) [address] [place] [address] MCH (RBC) [Entitic mass] 28.1 pg Normal 27-34 [facility] Comment on above: Performed By: #### Shahla BCA, CMP, , 2776-04, 1987-08 #### [facility] ([id number]) [address] [place] [address] MCHC (RBC) [Mass/Vol] 33.3 g/dL Normal 32-36 [facility] Comment on above: Performed By: #### Shahla BCA, CMP, , 2776-04, 1987-08 #### [facility] ([id number]) [address], [address] [place] [address] MCV (RBC) [Entitic vol] 84 fL Normal 80-100 P [facility] Comment on above: Performed By: #### C BCA, CMP, , 2776-04, 1987-08 #### [facility] ([id number]) [address], [address] [place] [address] Monocytes (Bld) [#/Vol] 0.8 10*3/uL Normal 0-0.9 [facility] Comment on above: Performed By: #### C BCA, CMP, , 2776-04, 1987-08 #### [facility] ([id number]) [address], [address] [place] [address] Monocytes/100 WBC (Bld) 7.6 % Normal [facility] Comment on above: Performed By: #### Shahla BCA, CMP, , 2776-04, 1987-08 #### [facility] ([id number]) [address], [address] [place] [address] Neutrophils/100 WBC (Bld) 64.6 % Normal [facility] Comment on above: Performed By: #### Shahla BCA, CMP, , 2776-04, 1987-08 #### [facility] ([id number]) [address], [address] [place] [address] Platelet mean volume (Bld) [Entitic vol] 9.6 fL Normal 7-12 [facility] Comment on above: Performed By: #### Shahla BCA, CMP, , 2776-04, 1987-08 #### [facility] ([id number]) [address], [address] [place] [address] Platelets (Bld) [#/Vol] 304 10*3/uL Normal 150-450 [facility] Comment on above: Performed By: #### Shahla BCA, CMP, , 2776-04, 1987-08 #### [facility] ([id number]) [address], [address] [place] [address] RBC COUNT 3.73 X10E12/L Low 3.80-5.20 [facility] Comment on above: Performed By: #### C BCA, CMP, , 2776-04, 1987-08 #### [facility] ([id number]) [address], [address] [place] [address] WBC (Bld) [#/Vol] 11.2 10*3/uL High 4.0-11.0 [facility] Comment on above: Performed By: #### C BCA, CMP, , 2776-04, 1987-08 #### [facility] ([id number]) [address], [address] [place] [address] COMPREHENSIVE METABOLIC PANE Phu 10-24-2023 Albumin [Mass/Vol] 3.2 g/dL Normal 3.2-5.3 [facility] Comment on above: Performed By: #### C BCA, CMP, , 2776-04, 1987-08 #### [facility] ([id number]) [address], [address] [place] [address] ALP [Catalytic activity/Vol] 37 U/L Low 39-130 [facility] Comment on above: Performed By: #### C BCA, CMP, , 2776-04, 1987-08 #### [facility] ([id number]) [address], [address] [place] [address] ALT [Catalytic activity/Vol] 8 U/L Normal 0-31 [facility] Comment on above: Performed By: #### C BCA, CMP, , 2776-04, 1987-08 #### [facility] [facility] ([id number]) [address], [address] [place] [address] Anion gap [Moles/Vol] 11 mmol/L Normal 5-15 [facility] Comment on above: Performed By: #### C BCA, CMP, , 2776-04, 1987-08 #### [facility] ([id number]) [address], [address] [place] [address] AST [Catalytic activity/Vol] 9 U/L Normal 0-41 [facility] Comment on above: Performed By: #### C BCA, CMP, , 2776-04, 1987-08 #### [facility] ([id number]) [address], [address] [place] [address] Bilirubin [Mass/Vol] 0.3 mg/dL Normal 0.3-1.2 [facility] Comment on above: Performed By: #### C BCA, CMP, , 2776-04, 1987-08 #### [facility] ([id number]) [address], [address] [place] [address] Calcium [Mass/Vol] 8.7 mg/dL Normal 8.5-10.5 [facility] Comment on above: Performed By: #### C BCA, CMP, , 2776-04, 1987-08 #### [facility] ([id number]) [address], [address] [place] [address] Chloride [Moles/Vol] 103 mmol/L Normal 98-109 [facility] Comment on above: Performed By: #### C BCA, CMP, , 2776-04, 1987-08 #### [facility] ([id number]) [address], [address] [place] [address] CO2 [Moles/Vol] 26 mmol/L Normal 22-32 [facility] Comment on above: Performed By: #### C BCA, CMP, , 2776-04, 1987-08 #### [facility] ([id number]) [address] [address] Creatinine [Mass/Vol] 2.33 mg/dL High 0.40-1.00 [facility] Comment on above: Result Comment: METH OD TRACEABLE TO IDMS STANDARD Performed By: #### C EDEL POOLE, , 2776-04, 1987-08 #### [facility] ([id number]) [address] [address] GFR/1.73 sq M.predicted among non-blacks MDRD (S/P/Bld) [Vol rate/Area] 24 mL/min/{1.73_m2} Low >59 [facility] Comment on above: Result Comment: Reported eGFR is based on the CKD-EPI 2020 equation that does not use a race coefficient. Performed By: #### C EDEL POOLE, , 2776-04, 1987-08 #### [facility] ([id number]) [address] [address] Glucose [Mass/Vol] 80 mg/dL Normal 65-99 [facility] Comment on above: Performed By: #### C EDEL POOLE, , 2776-04, 1987-08 #### [facility] ([id number]) [address] [address] Potassium [Moles/Vol] 3.9 mmol/L Normal 3.5-5.0 [facility] Comment on above: Performed By: #### C VIRGILIO CMP, , 2776-04, 1987-08 #### [facility] ([id number]) [address] [address] Protein [Mass/Vol] 5.1 g/dL Low 6.0-8.0 [facility] Comment on above: Performed By: #### C VIRGILIO CMP, , 2776-04, 1987-08 #### [facility] ([id number]) [address] [place] [address] Sodium [Moles/Vol] 140 mmol/L Normal 134-146 [facility] Comment on above: Performed By: #### C VIRGILIO CMP, , 2776-04, 1987-08 #### [facility] ([id number]) [address], [address] [place] [address] Urea nitrogen [Mass/Vol] 67 mg/dL High 5-23 [facility] Comment on above: Performed By: #### C VIRGILIO, CMP, , 2776-04, 1987-08 #### [facility] ([id number]) [address], [address] [place] [address] Calcium.ionized (Bld) [Mass/ Vol]on 10-24-2023 IONIZED CALCIUM 4.7 mg/dL Normal 4.5-5.3 [facility] Comment on above: Performed By: #### Shahla POOLE CMP, , 2776-04, 1987-08 #### [facility] ([id number]) [address], [address] [place] [address] HBV core Ab IA Qlon 10-24-19 ANTI HBc Negative Normal NEG [facility] Comment on above: Performed By: #### Shahla POOLE, CMP, , 2776-04, 1987-08 #### [facility] ([id number]) [address], [address] [place] [address] HBV surface Ag IA Qlon 10-23 HEPATITIS B SURF AG Negative Normal NEG [facility] Comment on above: Performed By: #### C VIRGILIO, CMP, , 2776-04, 1987-08 #### [facility] ([id number]) [address], [address] [place] [address] MAGNESIUMon 10-24-2023 Magnesium [Mass/Vol] 2.2 mg/dL Normal 1.8-2.6 [facility] Comment on above: Performed By: #### C VIRGILIO, CMP, , 2776-04, 1987-08 #### [facility] ([id number]) [address], [address] [place] [address] PHOSPHORUSon 10-24-2023 Phosphate [Mass/Vol] 3.4 mg/dL Normal 2.4-4.9 [facility] Comment on above: Performed By: #### C BCA, CMP, , 2776-04, 1987-08 #### [facility] ([id number]) [address], [address] [place] [address] CBC AND AUTO DIFFon 10-23-19 24 Band form neutrophils/100 WBC (Bld) 2.0 % Normal [facility] Comment on above: Performed By: #### Shahla POOLE, CMP, , 2776-04, 1987-08 #### [facility] ([id number]) [address], [address] [place] [address] Erythrocyte distribution width (RBC) [Ratio] 14.6 % Normal 11.5-15.0 [facility] Comment on above: Performed By: #### Shahla POOLE, CMP, , 2776-04, 1987-08 #### [facility] ([id number]) [address], [facility] [address] [place] [address] Hematocrit (Bld) [Volume fraction] 31.6 % Low 35-47 [facility] Comment on above: Performed By: #### Shahla BCA, CMP, , 2776-04, 1987-08 #### [facility] ([id number]) [address], [facility] [address] [place] [address] Hemoglobin (Bld) [Mass/Vol] 10.5 g/dL Low 11.7-15.5 [facility] Comment on above: Performed By: #### Shahla BCA, CMP, , 2776-04, 1987-08 #### [facility] ([id number]) [address], [address] [place] [address] Lymphocytes (Bld) [#/Vol] 2.0 10*3/uL Normal 1.0-3.5 [facility] Comment on above: Performed By: #### Shahla POOLE CMP, , 2776-04, 1987-08 #### [facility] ([id number]) [address], [address] [place] [address] Lymphocytes/100 WBC (Bld) 21.0 % Normal [facility] Comment on above: Performed By: #### Shahla POOLE, CMP, , 2776-04, 1987-08 #### [facility] ([id number]) [address], [address] [place] [address] MCH (RBC) [Entitic mass] 28.2 pg Normal 27-34 [facility] Comment on above: Performed By: #### Shahla POOLE, CMP, , 2776-04, 1987-08 #### [facility] ([id number]) [address], [address] [place] [address] MCHC (RBC) [Mass/Vol] 33.3 g/dL Normal 32-36 [facility] Comment on above: Performed By: #### Shahla POOLE CMP, , 2776-04, 1987-08 #### [facility] ([id number]) [address], [address] [place] [address] MCV (RBC) [Entitic vol] 85 fL Normal 80-100 [facility] Comment on above: Performed By: #### Shahla BCA, CMP, , 2776-04, 1987-08 #### [facility] ([id number]) [address], [address] [place] [address] Monocytes (Bld) [#/Vol] 1.8 10*3/uL High 0-0.9 [facility] Comment on above: Performed By: #### C BCA, CMP, , 2776-04, 1987-08 #### [facility] ([id number]) [address], [address] [place] [address] Monocytes/100 WBC (Bld) 19.0 % Normal [facility] Comment on above: Performed By: #### Shahla BCA, CMP, , 2776-04, 1987-08 #### [facility] ([id number]) [address], [address] [place] [address] Neutrophils (Bld) [#/Vol] 5.8 10*3/uL Normal 1.5-6.6 [facility] Comment on above: Performed By: #### Shahla BCA, CMP, , 2776-04, 1987-08 #### [facility] ([id number]) [address], [address] [place] [address] Platelet mean volume (Bld) [Entitic vol] 9.3 fL Normal 7-12 [facility] Comment on above: Performed By: #### Shahla BCA, CMP, , 2776-04, 1987-08 #### [facility] ([id number]) [address], [address] [place] [address] Platelets (Bld) [#/Vol] 297 10*3/uL Normal 150-450 [facility] Comment on above: Performed By: #### Shahla BCA, CMP, , 2776-04, 1987-08 #### [facility] ([id number]) [address], [address] [place] [address] RBC COUNT 3.73 X10E12/L Low 3.80-5.20 [facility] Comment on above: Performed By: #### Shahla BCA, CMP, , 2776-04, 1987-08 #### [facility] ([id number]) [address], [address] [place] [address] RBC morphology finding Nom (Bld) NORMAL Normal [facility] Comment on above: Performed By: #### C BCA, CMP, , 2776-04, 1987-08 #### [facility] ([id number]) [address], [address] [place] [address] SEG NEUTROPHIL 58.0 % Normal [facility] Comment on above: Performed By: #### C BCA, CMP, , 2776-04, 1987-08 #### [facility] ([id number]) [address], [address] [place] [address] WBC (Bld) [#/Vol] 9.6 10*3/uL Normal 4.0-11.0 [facility] Comment on above: Performed By: #### C BCA, CMP, , 2776-04, 1987-08 #### [facility] ([id number]) [address], [address] [place] [address] COMPREHENSIVE METABOLIC PANE [facility] 10-23-2023 Albumin [Mass/Vol] 3.2 g/dL Normal 3.2-5.3 [facility] Comment on above: Performed By: #### C BCA, CMP, , 2776-04, 1987-08 #### [facility] ([id number]) [address] [place] [address] ALP [Catalytic activity/Vol] 38 U/L Low 39-130 [facility] Comment on above: Performed By: #### C BCA, CMP, , 2776-04, 1987-08 #### [facility] ([id number]) [address] [place] [address] ALT [Catalytic activity/Vol] 10 U/L Normal 0-31 [facility] Comment on above: Performed By: #### C BCA, CMP, , 2776-04, 1987-08 #### [facility] ([id number]) [address], [address] [place] [address] Anion gap [Moles/Vol] 9 mmol/L Normal 5-15 [facility] Comment on above: Performed By: #### C BCA, CMP, , 2776-04, 1987-08 #### [facility] ([id number]) [address], [address] [place] [address] AST [Catalytic activity/Vol] 10 U/L Normal 0-41 [facility] Comment on above: Performed By: #### C BCA, CMP, , 2776-04, 1987-08 #### [facility] ([id number]) [address], [address] [place] [address] Bilirubin [Mass/Vol] 0.3 mg/dL Normal 0.3-1.2 [facility] Comment on above: Performed By: #### C BCA, CMP, , 2776-04, 1987-08 #### [facility] ([id number]) [address], [address] [place] [address] Calcium [Mass/Vol] 8.7 mg/dL Normal 8.5-10.5 [facility] Comment on above: Performed By: #### C BCA, CMP, , 2776-04, 1987-08 #### [facility] ([id number]) [address] [place] [address] Chloride [Moles/Vol] 102 mmol/L Normal 98-109 [facility] Comment on above: Performed By: #### C BCA, CMP, , 2776-04, 1987-08 #### [facility] ([id number]) [address], [address] [place] [address] CO2 [Moles/Vol] 29 mmol/L Normal 22-32 [facility] Comment on above: Performed By: #### C BCA, CMP, , 2776-04, 1987-08 #### [facility] ([id number]) [address], [address] [place] [address] Creatinine [Mass/Vol] 2.68 mg/dL High 0.40-1.00 [facility] Comment on above: Result Comment: METH OD TRACEABLE TO IDMS STANDARD Performed By: #### C EDEL POOLE, , 2776-04, 1987-08 #### [facility] ([id number]) [address] [place] [address] GFR/1.73 sq M.predicted among non-blacks MDRD (S/P/Bld) [Vol rate/Area] 20 mL/min/{1.73_m2} Low >59 [facility] Comment on above: Result Comment: Reported eGFR is based on the CKD-EPI 2020 equation that does not use a race coefficient. Performed By: #### C EDEL POOLE, , 2776-04, 1987-08 #### [facility] ([id number]) [address] [place] [address] Glucose [Mass/Vol] 86 mg/dL Normal 65-99 [facility] Comment on above: Performed By: #### C EDEL POOLE, , 2776-04, 1987-08 #### [facility] ([id number]) [address] [place] [address] Potassium [Moles/Vol] 3.7 mmol/L Normal 3.5-5.0 [facility] Comment on above: Performed By: #### C VIRGILIO CMP, , 2776-04, 1987-08 #### [facility] ([id number]) [address], [address] [place] [address] Protein [Mass/Vol] 5.2 g/dL Low 6.0-8.0 [facility] Comment on above: Performed By: #### C BCA, CMP, , 2776-04, 1987-08 #### [facility] ([id number]) [address], [address] [place] [address] Sodium [Moles/Vol] 140 mmol/L Normal 134-146 [facility] Comment on above: Performed By: #### C BCA, CMP, , 2776-04, 1987-08 #### [facility] ([id number]) [address], [address] [place] [address] Urea nitrogen [Mass/Vol] 72 mg/dL High 5-23 [facility] Comment on above: Performed By: #### C BCA, CMP, , 2776-04, 1987-08 #### [facility] ([id number]) [address], [address] [place] [address] Calcium.ionized (Bld) [Mass/ Vol]on 10-23-2023 IONIZED CALCIUM 4.8 mg/dL Normal 4.5-5.3 [facility] Comment on above: Performed By: #### C VIRGILIO, CMP, , 2776-04, 1987-08 #### [facility] ([id number]) [address] [place] [address] MAGNESIUMon 10-23-2023 Magnesium [Mass/Vol] 2.4 mg/dL Normal 1.8-2.6 [facility] Comment on above: Performed By: #### C BCA, CMP, , 2776-04, 1987-08 #### [facility] ([id number]) [address], [address] [place] [address] PHOSPHORUSon 10-23-2023 Phosphate [Mass/Vol] 4.0 mg/dL Normal 2.4-4.9 [facility] Comment on above: Performed By: #### C BCA, CMP, , 2776-04, 1987-08 #### [facility] ([id number]) [address], [address] [place] [address] CBC AND AUTO DIFFon 10-22-19 Erythrocyte distribution width (RBC) [Ratio] 15.0 % Normal 11.5-15.0 [facility] Comment on above: Performed By: #### Shahla POOLE CMP, , 2776-04, 1987-08 #### [facility] ([id number]) [address], [facility] [address] [place] [address] Hematocrit (Bld) [Volume fraction] 32.1 % Low 35-47 [facility] Comment on above: Performed By: #### Shahla POOLE [facility], , 2776-04, 1987-08 #### [facility] ([id number]) [address], [facility] [address] [place] [address] Hemoglobin (Bld) [Mass/Vol] 11.0 g/dL Low 11.7-15.5 [facility] Comment on above: Performed By: #### C VIRGILIO [facility], , 2776-04, 1987-08 #### [facility] ([id number]) [address] [address] [place] [address] Lymphocytes (Bld) [#/Vol] 1.2 10*3/uL Normal 1.0-3.5 [facility] Comment on above: Performed By: #### Shahla POOLE CMP, , 2776-04, 1987-08 #### [facility] ([id number]) [address] [address] [place] [address] Lymphocytes/100 WBC (Bld) 14.0 % Normal [facility] Comment on above: Performed By: #### Shahla BCA, CMP, , 2776-04, 1987-08 #### [facility] ([id number]) [address], [address] [place] [address] MCH (RBC) [Entitic mass] 28.8 pg Normal 27-34 [facility] Comment on above: Performed By: #### C BCA, CMP, , 2776-04, 1987-08 #### [facility] ([id number]) [address], [address] [place] [address] MCHC (RBC) [Mass/Vol] 34.3 g/dL Normal 32-36 [facility] Comment on above: Performed By: #### C BCA, CMP, , 2776-04, 1987-08 #### [facility] ([id number]) [address], [address] [place] [address] MCV (RBC) [Entitic vol] 84 fL Normal 80-100 [facility] Comment on above: Performed By: #### Shhala BCA, CMP, , 2776-04, 1987-08 #### [facility] ([id number]) [address] [place] [address] Metamyelocytes/100 WBC (Bld) 1.0 % Normal [facility] Comment on above: Performed By: #### C BCA, CMP, , 2776-04, 1987-08 #### [facility] ([id number]) [address] [place] [address] Monocytes (Bld) [#/Vol] 0.6 10*3/uL Normal 0-0.9 [facility] Comment on above: Performed By: #### C BCA, CMP, , 2776-04, 1987-08 #### [facility] ([id number]) [address], [address] [place] [address] Monocytes/100 WBC (Bld) 7.0 % Normal [facility] Comment on above: Performed By: #### C BCA, CMP, , 2776-04, 1987-08 #### [facility] ([id number]) [address], [address] [place] [address] MYELOCYTE 3.0 % Normal [facility] Comment on above: Performed By: #### C BCA, CMP, , 2776-04, 1987-08 #### [facility] ([id number]) [address] [place] [address] Neutrophils (Bld) [#/Vol] 6.7 10*3/uL High 1.5-6.6 [facility] Comment on above: Performed By: #### C BCA, CMP, , 2776-04, 1987-08 #### [facility] ([id number]) [address] [place] [address] Platelet mean volume (Bld) [Entitic vol] 9.4 fL Normal 7-12 [facility] Comment on above: Performed By: #### Shahla BCA, CMP, , 2776-04, 1987-08 #### [facility] ([id number]) [address], [address] [place] [address] Platelets (Bld) [#/Vol] 394 10*3/uL Normal 150-450 [facility] Comment on above: Performed By: #### Sahhla BCA, CMP, , 2776-04, 1987-08 #### [facility] ([id number]) [address], [address] [place] [address] RBC COUNT 3.83 X10E12/L Normal 3.80-5.20 [facility] Comment on above: Performed By: #### C BCA, CMP, , 2776-04, 1987-08 #### [facility] ([id number]) [address], [address] [place] [address] RBC morphology finding Nom (Bld) NORMAL Normal [facility] Comment on above: Performed By: #### C BCA, CMP, , 2776-04, 1987-08 #### [facility] ([id number]) [address], [address] [place] [address] SEG NEUTROPHIL 75.0 % Normal [facility] Comment on above: Performed By: #### C BCA, CMP, , 2776-04, 1987-08 #### [facility] ([id number]) [address], [address] [place] [address] WBC (Bld) [#/Vol] 8.9 10*3/uL Normal 4.0-11.0 [facility] Comment on above: Performed By: #### C BCA, CMP, , 2776-04, 1987-08 #### [facility] ([id number]) [address] [place] [address] COMPREHENSIVE METABOLIC PANE Phu 10-22-2023 Albumin [Mass/Vol] 3.4 g/dL Normal 3.2-5.3 [facility] Comment on above: Performed By: #### C BCA, CMP, , 2776-04, 1987-08 #### [facility] ([id number]) [address] [place] [address] ALP [Catalytic activity/Vol] 43 U/L Normal 39-130 [facility] Comment on above: Performed By: #### C BCA, CMP, , 2776-04, 1987-08 #### [facility] ([id number]) [address], [address] [place] [address] ALT [Catalytic activity/Vol] 9 U/L Normal 0-31 [facility] Comment on above: Performed By: #### C BCA, CMP, , 2776-04, 1987-08 #### [facility] ([id number]) [address], [address] [place] [address] Anion gap [Moles/Vol] 14 mmol/L Normal 5-15 [facility] Comment on above: Performed By: #### C BCA, CMP, , 2776-04, 1987-08 #### [facility] ([id number]) [address] [place] [address] AST [Catalytic activity/Vol] 12 U/L Normal 0-41 [facility] Comment on above: Performed By: #### C BCA, CMP, , 2776-04, 1987-08 #### [facility] ([id number]) [address] [place] [address] Bilirubin [Mass/Vol] 0.3 mg/dL Normal 0.3-1.2 [facility] Comment on above: Performed By: #### C BCA, CMP, , 2776-04, 1987-08 #### [facility] ([id number]) [address] [place] [address] Calcium [Mass/Vol] 8.9 mg/dL Normal 8.5-10.5 [facility] Comment on above: Performed By: #### C BCA, CMP, , 2776-04, 1987-08 #### [facility] ([id number]) [address] [place] [address] Chloride [Moles/Vol] 99 mmol/L Normal 98-109 [facility] Comment on above: Performed By: #### C BCA, CMP, , 2776-04, 1987-08 #### [facility] ([id number]) [address] [place] [address] CO2 [Moles/Vol] 25 mmol/L Normal 22-32 [facility] Comment on above: Performed By: #### C BCA, CMP, , 2776-04, 1987-08 #### [facility] ([id number]) [address], [address] [place] [address] Creatinine [Mass/Vol] 3.16 mg/dL High 0.40-1.00 [facility] Comment on above: Result Comment: METH OD TRACEABLE TO IDMS STANDARD Performed By: #### C EDEL POOLE, , 2776-04, 1987-08 #### [facility] ([id number]) [address], [facility] [address] [place] [address] GFR/1.73 sq M.predicted among non-blacks MDRD (S/P/Bld) [Vol rate/Area] 16 mL/min/{1.73_m2} Low >59 [facility] Comment on above: Result Comment: Reported eGFR is based on the CKD-EPI 2020 equation that does not use a race coefficient. Performed By: #### C EDEL POOLE, , 2776-04, 1987-08 #### [facility] ([id number]) [address] [address] Glucose [Mass/Vol] 109 mg/dL High 65-99 [facility] Comment on above: Performed By: #### C EDEL POOLE, , 2776-04, 1987-08 #### [facility] ([id number]) [address] [address] Potassium [Moles/Vol] 4.0 mmol/L Normal 3.5-5.0 [facility] Comment on above: Performed By: #### C EDEL POOLE, , 2776-04, 1987-08 #### [facility] ([id number]) [address] [address] [place] [address] Protein [Mass/Vol] 5.7 g/dL Low 6.0-8.0 [facility] Comment on above: Performed By: #### C VIRGILIO CMP, , 2776-04, 1987-08 #### [facility] ([id number]) [address], [address] [place] [address] Sodium [Moles/Vol] 138 mmol/L Normal 134-146 [facility] Comment on above: Performed By: #### C VIRGILIO, CMP, , 2776-04, 1987-08 #### [facility] ([id number]) [address], [address] [place] [address] Urea nitrogen [Mass/Vol] 79 mg/dL High 5-23 [facility] Comment on above: Performed By: #### C VIRGILIO, CMP, , 2776-04, 1987-08 #### [facility] ([id number]) [address], [facility] [address] [place] [address] Calcium.ionized (Bld) [Mass/ Vol]on 10-22-2023 IONIZED CALCIUM 4.5 mg/dL Normal 4.5-5.3 [facility] Comment on above: Performed By: #### Shahla POOLE, CMP, , 2776-04, 1987-08 #### [facility] ([id number]) [address], [facility] [address] [place] [address] MAGNESIUMon 10-22-2023 Magnesium [Mass/Vol] 2.5 mg/dL Normal 1.8-2.6 [facility] Comment on above: Performed By: #### Shahla POOLE, CMP, , 2776-04, 1987-08 #### [facility] ([id number]) [address], [facility] [address] [place] [address] PHOSPHORUSon 10-22-2023 Phosphate [Mass/Vol] 4.7 mg/dL Normal 2.4-4.9 [facility] Comment on above: Performed By: #### Shahla POOLE, CMP, , 2776-04, 1987-08 #### [facility] ([id number]) [address], [facility] [address] [place] [address] Basement membrane IgG Qn (S) on 10-21-2023 Glomerular Base Memb IgG <0.2 Normal <1. 0 (Negative) [facility] Comment on above: Result Comment: NOTE Test Performed by: [facility] [address] [place] [address] Mix Maker: Ledy Son Ph.D.; CLIA# [id number] Performed By: #### C BCA, CMP, , 2776-04, 1987-08 #### [facility] ([id number]) [address], [address] [place] [address] CBC AND AUTO DIFFon 10-21-19 24 ABSOLUTE BASOPHIL 0.0 X10E9/L Normal 0.0-0.2 [facility] Comment on above: Performed By: #### C BCA, CMP, , 2776-04, 1987-08 #### [facility] ([id number]) [address] [place] [address] ABSOLUTE NEUTROPHIL 8.8 X10E9/L High 1.5-6.6 [facility] Comment on above: Performed By: #### C BCA, CMP, , 2776-04, 1987-08 #### [facility] ([id number]) [address], [address] [place] [address] Basophils/100 WBC (Bld) 0.1 % Normal P [facility] Comment on above: Performed By: #### Shahla BCA, CMP, , 2776-04, 1987-08 #### [facility] ([id number]) [address] [place] [address] Eosinophils (Bld) [#/Vol] 0.0 10*3/uL Normal 0.0-0.4 [facility] Comment on above: Performed By: #### C BCA, CMP, , 2776-04, 1987-08 #### [facility] ([id number]) [address], [address] [place] [address] Eosinophils/100 WBC (Bld) 0.0 % Normal [facility] Comment on above: Performed By: #### C VIRGILIO CMP, , 2776-04, 1987-08 #### [facility] ([id number]) [address], [address] [place] [address] Erythrocyte distribution width (RBC) [Ratio] 15.1 % High 11.5-15.0 [facility] Comment on above: Performed By: #### C VIRGILIO, CMP, , 2776-04, 1987-08 #### [facility] ([id number]) [address], [facility] [address] [place] [address] Hematocrit (Bld) [Volume fraction] 30.9 % Low 35-47 [facility] Comment on above: Performed By: #### Shahla POOLE CMP, , 2776-04, 1987-08 #### [facility] ([id number]) [address], [address] [place] [address] Hemoglobin (Bld) [Mass/Vol] 10.7 g/dL Low 11.7-15.5 [facility] Comment on above: Performed By: #### Shahla POOLE, CMP, , 2776-04, 1987-08 #### [facility] ([id number]) [address], [address] [place] [address] Lymphocytes (Bld) [#/Vol] 1.1 10*3/uL Normal 1.0-3.5 [facility] Comment on above: Performed By: #### C BCA, CMP, , 2776-04, 1987-08 #### [facility] ([id number]) [address], [address] [place] [address] Lymphocytes/100 WBC (Bld) 10.9 % Normal [facility] Comment on above: Performed By: #### Shahla BCA, CMP, , 2776-04, 1987-08 #### [facility] ([id number]) [address], [address] [place] [address] MCH (RBC) [Entitic mass] 29.1 pg Normal 27-34 [facility] Comment on above: Performed By: #### C BCA, CMP, , 2776-04, 1987-08 #### [facility] ([id number]) [address], [address] [place] [address] MCHC (RBC) [Mass/Vol] 34.7 g/dL Normal 32-36 [facility] Comment on above: Performed By: #### C VIRGILIO, CMP, , 2776-04, 1987-08 #### [facility] ([id number]) [address], [address] [place] [address] MCV (RBC) [Entitic vol] 84 fL Normal 80-100 P [facility] Comment on above: Performed By: #### C BCA, CMP, , 2776-04, 1987-08 #### [facility] ([id number]) [address], [address] [place] [address] Monocytes (Bld) [#/Vol] 0.2 10*3/uL Normal 0-0.9 [facility] Comment on above: Performed By: #### C VIRGILIO, CMP, , 2776-04, 1987-08 #### [facility] ([id number]) [address] [place] [address] Monocytes/100 WBC (Bld) 2.2 % Normal P [facility] Comment on above: Performed By: #### C BCA, CMP, , 2776-04, 1987-08 #### [facility] ([id number]) [address] [place] [address] Neutrophils/100 WBC (Bld) 86.8 % Normal [facility] Comment on above: Performed By: #### C BCA, CMP, , 2776-04, 1987-08 #### [facility] ([id number]) [address], [address] [place] [address] Platelet mean volume (Bld) [Entitic vol] 9.5 fL Normal 7-12 [facility] Comment on above: Performed By: #### C BCA, CMP, , 2776-04, 1987-08 #### [facility] ([id number]) [address], [address] [place] [address] Platelets (Bld) [#/Vol] 297 10*3/uL Normal 150-450 [facility] Comment on above: Performed By: #### C BCA, CMP, , 2776-04, 1987-08 #### [facility] ([id number]) [address], [address] [place] [address] RBC COUNT 3.69 X10E12/L Low 3.80-5.20 [facility] Comment on above: Performed By: #### C BCA, CMP, , 2776-04, 1987-08 #### [facility] ([id number]) [address], [address] [place] [address] WBC (Bld) [#/Vol] 10.2 10*3/uL Normal 4.0-11.0 [facility] Comment on above: Performed By: #### C BCA, CMP, , 2776-04, 1987-08 #### [facility] ([id number]) [address], [address] [place] [address] COMPREHENSIVE METABOLIC PANE Phu 10-21-2023 Albumin [Mass/Vol] 3.6 g/dL Normal 3.2-5.3 [facility] Comment on above: Performed By: #### C BCA, CMP, , 2776-04, 1987-08 #### [facility] ([id number]) [address], [address] [place] [address] ALP [Catalytic activity/Vol] 46 U/L Normal 39-130 [facility] Comment on above: Performed By: #### C BCA, CMP, , 2776-04, 1987-08 #### [facility] ([id number]) [address], [address] [place] [address] ALT [Catalytic activity/Vol] 15 U/L Normal 0-31 [facility] Comment on above: Performed By: #### C BCA, CMP, , 2776-04, 1987-08 #### [facility] ([id number]) [address], [address] [place] [address] Anion gap [Moles/Vol] 12 mmol/L Normal 5-15 [facility] Comment on above: Performed By: #### C BCA, CMP, , 2776-04, 1987-08 #### [facility] ([id number]) [address], [address] [place] [address] AST [Catalytic activity/Vol] 18 U/L Normal 0-41 [facility] Comment on above: Performed By: #### C BCA, CMP, , 2776-04, 1987-08 #### [facility] ([id number]) [address], [address] [place] [address] Bilirubin [Mass/Vol] 0.3 mg/dL Normal 0.3-1.2 [facility] Comment on above: Performed By: #### C BCA, CMP, , 2776-04, 1987-08 #### [facility] ([id number]) [address], [address] [place] [address] Calcium [Mass/Vol] 8.8 mg/dL Normal 8.5-10.5 [facility] Comment on above: Performed By: #### C BCA, CMP, , 2776-04, 1987-08 #### [facility] ([id number]) [address], [address] [place] [address] Chloride [Moles/Vol] 96 mmol/L Low 98-109 [facility] Comment on above: Performed By: #### C VIRGILIO CMP, , 2776-04, 1987-08 #### [facility] ([id number]) [address], [address] [place] [address] CO2 [Moles/Vol] 28 mmol/L Normal 22-32 [facility] Comment on above: Performed By: #### C VIRGILIO CMP, , 2776-04, 1987-08 #### [facility] ([id number]) [address], [address] [place] [address] Creatinine [Mass/Vol] 3.71 mg/dL High 0.40-1.00 [facility] Comment on above: Result Comment: METH OD TRACEABLE TO IDMS STANDARD Performed By: #### C EDEL POOLE, , 2776-04, 1987-08 #### [facility] ([id number]) [address], [address] [place] [address] GFR/1.73 sq M.predicted among non-blacks MDRD (S/P/Bld) [Vol rate/Area] 13 mL/min/{1.73_m2} Low >59 [facility] Comment on above: Result Comment: Reported eGFR is based on the CKD-EPI 2020 equation that does not use a race coefficient. Performed By: #### C BCA, CMP, , 2776-04, 1987-08 #### [facility] ([id number]) [address], [address] [place] [address] Glucose [Mass/Vol] 131 mg/dL High 65-99 [facility] Comment on above: Performed By: #### C BCA, CMP, , 2776-04, 1987-08 #### [facility] ([id number]) [address], [address] [place] [address] Potassium [Moles/Vol] 4.6 mmol/L Normal 3.5-5.0 [facility] Comment on above: Performed By: #### C VIRGILIO, CMP, , 2776-04, 1987-08 #### [facility] ([id number]) [address], [address] [place] [address] Protein [Mass/Vol] 5.9 g/dL Low 6.0-8.0 [facility] Comment on above: Performed By: #### C VIRGILIO, CMP, , 2776-04, 1987-08 #### [facility] ([id number]) [address] [place] [address] Sodium [Moles/Vol] 136 mmol/L Normal 134-146 [facility] Comment on above: Performed By: #### C VIRGILIO, CMP, , 2776-04, 1987-08 #### [facility] ([id number]) [address], [address] [place] [address] Urea nitrogen [Mass/Vol] 80 mg/dL High 5-23 [facility] Comment on above: Performed By: #### C BCA, CMP, , 2776-04, 1987-08 #### [facility] ([id number]) [address], [address] [place] [address] Calcium.ionized (Bld) [Mass/ Vol]on 10-21-2023 IONIZED CALCIUM 4.5 mg/dL Normal 4.5-5.3 [facility] Comment on above: Performed By: #### C BCA, CMP, , 2776-04, 1987-08 #### [facility] ([id number]) [address], [address] [place] [address] MAGNESIUMon 10-21-2023 Magnesium [Mass/Vol] 2.4 mg/dL Normal 1.8-2.6 [facility] Comment on above: Performed By: #### C BCA, CMP, , 2776-04, 1987-08 #### [facility] ([id number]) [address], [address] [place] [address] PHOSPHORUSon 10-21-2023 Phosphate [Mass/Vol] 5.5 mg/dL High 2.4-4.9 [facility] Comment on above: Performed By: #### C BCA, CMP, , 2776-04, 1987-08 #### [facility] ([id number]) [address] [place] [address] CBC AND AUTO DIFFon 10-20-19 ABSOLUTE BASOPHIL 0.0 X10E9/L Normal 0.0-0.2 [facility] Comment on above: Performed By: #### C BCA, CMP, , 2776-04, 1987-08 #### [facility] ([id number]) [address], [address] [place] [address] ABSOLUTE NEUTROPHIL 14.6 X10E9/L High 1.5-6.6 [facility] Comment on above: Performed By: #### C BCA, CMP, , 2776-04, 1987-08 #### [facility] ([id number]) [address], [address] [place] [address] Basophils/100 WBC (Bld) 0.1 % Normal P [facility] Comment on above: Performed By: #### C BCA, CMP, , 2776-04, 1987-08 #### [facility] ([id number]) [address], [address] [place] [address] Eosinophils (Bld) [#/Vol] 0.0 10*3/uL Normal 0.0-0.4 [facility] Comment on above: Performed By: #### C VIRGILIO, CMP, , 2776-04, 1987-08 #### [facility] ([id number]) [address] [address] [place] [address] Eosinophils/100 WBC (Bld) 0.0 % Normal [facility] Comment on above: Performed By: #### Shahla BCA, CMP, , 2776-04, 1987-08 #### [facility] ([id number]) [address] [place] [address] Erythrocyte distribution width (RBC) [Ratio] 15.3 % High 11.5-15.0 [facility] Comment on above: Performed By: #### Shahla POOLE, CMP, , 2776-04, 1987-08 #### [facility] ([id number]) [address], [address] [place] [address] Hematocrit (Bld) [Volume fraction] 32.0 % Low 35-47 [facility] Comment on above: Performed By: #### Shahla POOLE, CMP, , 2776-04, 1987-08 #### [facility] ([id number]) [address] [address] [place] [address] Hemoglobin (Bld) [Mass/Vol] 10.5 g/dL Low 11.7-15.5 [facility] Comment on above: Performed By: #### Shahla POOLE, CMP, , 2776-04, 1987-08 #### [facility] ([id number]) [address] [address] [place] [address] Lymphocytes (Bld) [#/Vol] 1.7 10*3/uL Normal 1.0-3.5 [facility] Comment on above: Performed By: #### Shahla BCA, CMP, , 2776-04, 1987-08 #### [facility] ([id number]) [address] [place] [address] Lymphocytes/100 WBC (Bld) 10.3 % Normal [facility] Comment on above: Performed By: #### C VIRGILIO CMP, , 2776-04, 1987-08 #### [facility] ([id number]) [address], [facility] [address] [place] [address] MCH (RBC) [Entitic mass] 27.7 pg Normal 27-34 [facility] Comment on above: Performed By: #### Shahla BCA, CMP, , 2776-04, 1987-08 #### [facility] ([id number]) [address], [facility] [address] [place] [address] MCHC (RBC) [Mass/Vol] 32.9 g/dL Normal 32-36 [facility] Comment on above: Performed By: #### Shahla POOLE CMP, , 2776-04, 1987-08 #### [facility] ([id number]) [address], [facility] [address] [place] [address] MCV (RBC) [Entitic vol] 84 fL Normal 80-100 P [facility] Comment on above: Performed By: #### Shahla POOLE, CMP, , 2776-04, 1987-08 #### [facility] ([id number]) [address], [facility] [address] [place] [address] Monocytes (Bld) [#/Vol] 0.4 10*3/uL Normal 0-0.9 [facility] Comment on above: Performed By: #### Shahla BCA, CMP, , 2776-04, 1987-08 #### [facility] ([id number]) [address], [facility] [address] [place] [address] Monocytes/100 WBC (Bld) 2.2 % Normal P [facility] Comment on above: Performed By: #### Shahla BCA, CMP, , 2776-04, 1987-08 #### [facility] ([id number]) [address] [place] [address] Neutrophils/100 WBC (Bld) 87.4 % Normal [facility] Comment on above: Performed By: #### C BCA, CMP, , 2776-04, 1987-08 #### [facility] ([id number]) [address] [place] [address] Platelet mean volume (Bld) [Entitic vol] 9.3 fL Normal 7-12 [facility] Comment on above: Performed By: #### C BCA, CMP, , 2776-04, 1987-08 #### [facility] ([id number]) [address] [place] [address] Platelets (Bld) [#/Vol] 350 10*3/uL Normal 150-450 [facility] Comment on above: Performed By: #### C BCA, CMP, , 2776-04, 1987-08 #### [facility] ([id number]) [address] [place] [address] RBC COUNT 3.80 X10E12/L Normal 3.80-5.20 [facility] Comment on above: Performed By: #### C BCA, CMP, , 2776-04, 1987-08 #### [facility] ([id number]) [address] [place] [address] WBC (Bld) [#/Vol] 16.7 10*3/uL High 4.0-11.0 [facility] Comment on above: Performed By: #### C BCA, CMP, , 2776-04, 1987-08 #### [facility] ([id number]) [address], [address] [place] [address] COMPREHENSIVE METABOLIC PANE Phu 10-20-2023 Albumin [Mass/Vol] 3.6 g/dL Normal 3.2-5.3 [facility] Comment on above: Performed By: #### C BCA, CMP, , 2776-04, 1987-08 #### [facility] ([id number]) [address], [address] [place] [address] ALP [Catalytic activity/Vol] 53 U/L Normal 39-130 [facility] Comment on above: Performed By: #### C BCA, CMP, , 2776-04, 1987-08 #### [facility] ([id number]) [address], [address] [place] [address] ALT [Catalytic activity/Vol] 14 U/L Normal 0-31 [facility] Comment on above: Performed By: #### C BCA, CMP, , 2776-04, 1987-08 #### [facility] ([id number]) [address], [address] [place] [address] Anion gap [Moles/Vol] 13 mmol/L Normal 5-15 [facility] Comment on above: Performed By: #### C BCA, CMP, , 2776-04, 1987-08 #### [facility] ([id number]) [address] [place] [address] AST [Catalytic activity/Vol] 27 U/L Normal 0-41 [facility] Comment on above: Performed By: #### C BCA, CMP, , 2776-04, 1987-08 #### [facility] ([id number]) [address], [address] [place] [address] Bilirubin [Mass/Vol] 0.3 mg/dL Normal 0.3-1.2 [facility] Comment on above: Performed By: #### C BCA, CMP, , 2776-04, 1987-08 #### [facility] ([id number]) [address] [place] [address] Calcium [Mass/Vol] 9.1 mg/dL Normal 8.5-10.5 [facility] Comment on above: Performed By: #### C BCA, CMP, , 2776-04, 1987-08 #### [facility] ([id number]) [address] [place] [address] Chloride [Moles/Vol] 94 mmol/L Low 98-109 [facility] Comment on above: Performed By: #### C BCA, CMP, , 2776-04, 1987-08 #### [facility] ([id number]) [address], [address] [place] [address] CO2 [Moles/Vol] 28 mmol/L Normal 22-32 [facility] Comment on above: Performed By: #### C BCA, CMP, , 2776-04, 1987-08 #### [facility] ([id number]) [address] [place] [address] Creatinine [Mass/Vol] 3.58 mg/dL High 0.40-1.00 [facility] Comment on above: Result Comment: METH OD TRACEABLE TO IDMS STANDARD Performed By: #### C BCA, CMP, , 2776-04, 1987-08 #### [facility] ([id number]) [address], [address] [place] [address] GFR/1.73 sq M.predicted among non-blacks MDRD (S/P/Bld) [Vol rate/Area] 14 mL/min/{1.73_m2} Low >59 [facility] Comment on above: Result Comment: Reported eGFR is based on the CKD-EPI 2020 equation that does not use a race coefficient. Performed By: #### C BCA, CMP, , 2776-04, 1987-08 #### [facility] ([id number]) [address] [place] [address] Glucose [Mass/Vol] 133 mg/dL High 65-99 [facility] Comment on above: Performed By: #### C BCA, CMP, , 2776-04, 1987-08 #### [facility] ([id number]) [address] [place] [address] Potassium [Moles/Vol] 4.8 mmol/L Normal 3.5-5.0 [facility] Comment on above: Performed By: #### C BCA, CMP, , 2776-04, 1987-08 #### [facility] ([id number]) [address] [place] [address] Protein [Mass/Vol] 6.1 g/dL Normal 6.0-8.0 [facility] Comment on above: Performed By: #### C BCA, CMP, , 2776-04, 1987-08 #### [facility] ([id number]) [address] [place] [address] Sodium [Moles/Vol] 135 mmol/L Normal 134-146 [facility] Comment on above: Performed By: #### C BCA, CMP, , 2776-04, 1987-08 #### [facility] ([id number]) [address] [place] [address] Urea nitrogen [Mass/Vol] 70 mg/dL High 5-23 [facility] Comment on above: Performed By: #### C BCA, CMP, , 2776-04, 1987-08 #### [facility] ([id number]) [address] [place] [address] Calcium.ionized (Bld) [Mass/ Vol]on 10-20-2023 IONIZED CALCIUM 4.6 mg/dL Normal 4.5-5.3 [facility] Comment on above: Performed By: #### C BCA, CMP, 05500-3, 2777-1, 1987- #### [facility] ([id number]) [address] [place] [address] IR BIOPSY RENAL PERC RTon IR BIOPSY [...] Mann MD on 10/20/2023 3:13 PM Normal [facility] MAGNESIUMon 10-20-2023 Magnesium [Mass/Vol] 2.3 mg/dL Normal 1.8-2.6 [facility] Comment on above: Performed By: #### C BCA, CMP, 19660-3, 2776-04, 1987-08 #### [facility] ([id number]) [address] [place] [address] [address] [place] [address] PHOSPHORUSon 10-20-2023 Phosphate [Mass/Vol] 6.3 mg/dL High 2.4-4.9 [facility] Comment on above: Performed By: #### C BCA, CMP, , 2776-04, 1987-08 #### [facility] ([id number]) [address] [place] [address], [address] [place] [address] Surgical Pathologyon 024 Surgical Pathology Normal [facility] Comment on above: Result Comment: [facility] [address] [place] [address] Surgical Pathology Consultation ADDENDUM IA Patient Name:DANIELLE MONTANA:1965 (Age: 58)Gender:FTaken:4Reported:10/24/2023hysician(s):Wanda Mendez ([phone])Copy To:MD Natasha ROSALES M.D. Rec. #:[id number]: #[id number] Final Pathologic Diagnosis Right kidney, needle biopsy: Specimen sent to [facility] [employer]. Report Electronically Signed [facility]/10/24/2023Trace Meza MD Addendum (PHS) Date Reported: 10/24/2023 Results of routine histology and immunofluorescence dated 10/24/2023 are received from Deidra Bustos M.D., [facility], [address] [place] [address] and are as follows: Final Diagnosis: Kidney, [...] addendum. Please see the complete report from [facility] in the patient's EMR. Electronically Signed Out Trace Meza MD Addendum (PHS) Date Reported: 11/02/2023 Results of Addendum (Electron Microscopy) dated are received from Deidra Bustos M.D., [facility], [address] [place] [address] [place], [place] and are as follows: Paraffin-based immunofluorescence stains [...] case. Please see the complete report from [facility] in the patient's EMR. Electronically Signed Out Trace Meza MD Addendum ([facility]) Date Reported: 11/08/2023 Results of Mass Spectrometry dated 11/07/2023 are received from Adan Yates M.D., Ph.D., [facility], [address] [place] [address] [place], [place] and are as follows: MASS SPECTROMETRY Liquid chromatography tandem mass spectrometry (LC MS/MS) was performed on peptides extracted from glomeruli that were microdissected from the paraffin-embedded specimen. LC MS/MS did not detect a peptide profile consistent with any of the following antigens: PLA2R, THSD7A, EXT1/EXT2, NELL1, SEMA3B, CNTN1, NCAM1, PCSK6, PCDH7, FAT1 or NDNF. Please see the complete report from [facility] (more content not included)... CBC AND AUTO DIFFon 10-19-19 24 Band form neutrophils/100 WBC (Bld) 1.0 % Normal [facility] Comment on above: Performed By: #### C EDEL POOLE, , 2776-04, 1987-08 #### [facility] ([id number]) [address] [address] Erythrocyte distribution width (RBC) [Ratio] 14.9 % Normal 11.5-15.0 [facility] Comment on above: Performed By: #### Shahla POOLE CMP, , 2776-04, 1987-08 #### [facility] ([id number]) [address], [facility] [address] [place] [address] Hematocrit (Bld) [Volume fraction] 34.4 % Low 35-47 [facility] Comment on above: Performed By: #### C VIRGILIO CMP, , 2776-04, 1987-08 #### [facility] ([id number]) [address], [address] [address] Hemoglobin (Bld) [Mass/Vol] 11.4 g/dL Low 11.7-15.5 [facility] Comment on above: Performed By: #### C VIRGILIO CMP, , 2776-04, 1987-08 #### [facility] ([id number]) [address] [address] Lymphocytes (Bld) [#/Vol] 1.9 10*3/uL Normal 1.0-3.5 [facility] Comment on above: Performed By: #### C BCA, CMP, , 2776-04, 1987-08 #### [facility] ([id number]) [address], [address] [place] [address] Lymphocytes/100 WBC (Bld) 15.0 % Normal [facility] Comment on above: Performed By: #### Shahla BCA, CMP, , 2776-04, 1987-08 #### [facility] ([id number]) [address], [address] [place] [address] MCH (RBC) [Entitic mass] 27.8 pg Normal 27-34 [facility] Comment on above: Performed By: #### C BCA, CMP, , 2776-04, 1987-08 #### [facility] ([id number]) [address], [address] [place] [address] MCHC (RBC) [Mass/Vol] 33.2 g/dL Normal 32-36 [facility] Comment on above: Performed By: #### Shahla POOLE, CMP, , 2776-04, 1987-08 #### [facility] ([id number]) [address] [facility] [address] [place] [address] MCV (RBC) [Entitic vol] 84 fL Normal 80-100 P [facility] Comment on above: Performed By: #### Shahla BCA, CMP, , 2776-04, 1987-08 #### [facility] ([id number]) [address], [address] [place] [address] Metamyelocytes/100 WBC (Bld) 1.0 % Normal [facility] Comment on above: Performed By: #### Shahla BCA, CMP, , 2776-04, 1987-08 #### [facility] ([id number]) [address], [address] [place] [address] Monocytes (Bld) [#/Vol] 0.1 10*3/uL Normal 0-0.9 [facility] Comment on above: Performed By: #### C BCA, CMP, , 2776-04, 1987-08 #### [facility] ([id number]) [address], [address] [place] [address] Monocytes/100 WBC (Bld) 1.0 % Normal P [facility] Comment on above: Performed By: #### Shahla BCA, CMP, , 2776-04, 1987-08 #### [facility] ([id number]) [address], [facility] [address] [place] [address] Neutrophils (Bld) [#/Vol] 10.4 10*3/uL High 1.5-6.6 [facility] Comment on above: Performed By: #### Shahla BCA, CMP, , 2776-04, 1987-08 #### [facility] ([id number]) [address], [address] [place] [address] Platelet mean volume (Bld) [Entitic vol] 9.3 fL Normal 7-12 [facility] Comment on above: Performed By: #### Shahla BCA, CMP, , 2776-04, 1987-08 #### [facility] ([id number]) [address], [address] [place] [address] Platelets (Bld) [#/Vol] 324 10*3/uL Normal 150-450 [facility] Comment on above: Performed By: #### Shahla BCA, CMP, , 2776-04, 1987-08 #### [facility] ([id number]) [address] [facility] [address] [place] [address] POLYCHROMASIA 1+ Abnormal NONE [facility] Comment on above: Performed By: #### Shahla BCA, CMP, , 2776-04, 1987-08 #### [facility] ([id number]) [address], [address] [place] [address] RBC COUNT 4.09 X10E12/L Normal 3.80-5.20 [facility] Comment on above: Performed By: #### C BCA, CMP, , 2776-04, 1987-08 #### [facility] ([id number]) [address], [address] [place] [address] SEG NEUTROPHIL 82.0 % Normal [facility] Comment on above: Performed By: #### C BCA, CMP, , 2776-04, 1987-08 #### [facility] ([id number]) [address], [address] [place] [address] WBC (Bld) [#/Vol] 12.5 10*3/uL High 4.0-11.0 [facility] Comment on above: Performed By: #### C BCA, CMP, , 2776-04, 1987-08 #### [facility] ([id number]) [address], [address] [place] [address] COMPREHENSIVE METABOLIC PANE Phu 10-19-2023 Albumin [Mass/Vol] 3.7 g/dL Normal 3.2-5.3 [facility] Comment on above: Performed By: #### C BCA, CMP, , 2776-04, 1987-08 #### [facility] ([id number]) [address], [address] [place] [address] ALP [Catalytic activity/Vol] 58 U/L Normal 39-130 [facility] Comment on above: Performed By: #### C BCA, CMP, , 2776-04, 1987-08 #### [facility] ([id number]) [address], [address] [place] [address] ALT [Catalytic activity/Vol] 10 U/L Normal 0-31 [facility] Comment on above: Performed By: #### C BCA, CMP, , 2776-04, 1987-08 #### [facility] ([id number]) [address], [address] [place] [address] Anion gap [Moles/Vol] 13 mmol/L Normal 5-15 [facility] Comment on above: Performed By: #### C BCA, CMP, , 2776-04, 1987-08 #### [facility] ([id number]) [address], [address] [place] [address] AST [Catalytic activity/Vol] 17 U/L Normal 0-41 [facility] Comment on above: Performed By: #### C BCA, CMP, , 2776-04, 1987-08 #### [facility] ([id number]) [address] [place] [address] Bilirubin [Mass/Vol] 0.3 mg/dL Normal 0.3-1.2 [facility] Comment on above: Performed By: #### C BCA, CMP, , 2776-04, 1987-08 #### [facility] ([id number]) [address] [place] [address] Calcium [Mass/Vol] 9.9 mg/dL Normal 8.5-10.5 [facility] Comment on above: Performed By: #### C BCA, CMP, , 2776-04, 1987-08 #### [facility] ([id number]) [address], [address] [place] [address] Chloride [Moles/Vol] 95 mmol/L Low 98-109 [facility] Comment on above: Performed By: #### C BCA, CMP, , 2776-04, 1987-08 #### [facility] ([id number]) [address], [address] [place] [address] CO2 [Moles/Vol] 28 mmol/L Normal 22-32 [facility] Comment on above: Performed By: #### C VIRGILIO, CMP, , 2776-04, 1987-08 #### [facility] ([id number]) [address], [address] [place] [address] Creatinine [Mass/Vol] 3.62 mg/dL High 0.40-1.00 [facility] Comment on above: Result Comment: METH OD TRACEABLE TO IDMS STANDARD Performed By: #### C VIRGILIO, CMP, , 2776-04, 1987-08 #### [facility] ([id number]) [address] [place] [address] GFR/1.73 sq M.predicted among non-blacks MDRD (S/P/Bld) [Vol rate/Area] 14 mL/min/{1.73_m2} Low >59 [facility] Comment on above: Result Comment: Reported eGFR is based on the CKD-EPI 2020 equation that does not use a race coefficient. Performed By: #### C EDEL POOLE, , 2776-04, 1987-08 #### [facility] ([id number]) [address] [place] [address] Glucose [Mass/Vol] 146 mg/dL High 65-99 [facility] Comment on above: Performed By: #### C VIRGILIO CMP, , 2776-04, 1987-08 #### [facility] ([id number]) [address], [address] [place] [address] Potassium [Moles/Vol] 5.2 mmol/L High 3.5-5.0 [facility] Comment on above: Performed By: #### C VIRGILIO, CMP, , 2776-04, 1987-08 #### [facility] ([id number]) [address], [address] [place] [address] Protein [Mass/Vol] 6.4 g/dL Normal 6.0-8.0 [facility] Comment on above: Performed By: #### C BCA, CMP, , 2776-04, 1987-08 #### [facility] ([id number]) [address], [address] [place] [address] Sodium [Moles/Vol] 136 mmol/L Normal 134-146 [facility] Comment on above: Performed By: #### C BCA, CMP, , 2776-04, 1987-08 #### [facility] ([id number]) [address], [address] [place] [address] Urea nitrogen [Mass/Vol] 53 mg/dL High 5-23 [facility] Comment on above: Performed By: #### C BCA, CMP, , 2776-04, 1987-08 #### [facility] ([id number]) [address], [address] [place] [address] CRP [Mass/Vol]on 10-19-2023 C REACTIVE PROTEIN 0.9 mg/dL High 0.000-0.7 4 4 [facility] Comment on above: Performed By: #### C BCA, CMP, , 2776-04, 1987-08 #### [facility] ([id number]) [address], [address] [place] [address] Calcium.ionized (Bld) [Mass/ Vol]on 10-19-2023 IONIZED CALCIUM 4.6 mg/dL Normal 4.5-5.3 [facility] Comment on above: Performed By: #### 3 8230-9 #### [facility] ([id number]) [address], [address] [place] [address] IMMUNOGLOBULINSon 10-19-2023 IgA [Mass/Vol] 109 mg/dL Normal 68-378 [facility] Comment on above: Performed By: #### P INR, 64930-1, IMGB #### [facility] ([id number]) [address] [place] [address] IgG [Mass/Vol] 460 mg/dL Low 635-1741 [facility] Comment on above: Performed By: #### P INR, 15297-3, IMGB #### [facility] ([id number]) [address], [address] [place] [address] IgM [Mass/Vol] 98 mg/dL Normal 45-281 [facility] Comment on above: Performed By: #### P INR, 09188-5, IMGB #### [facility] ([id number]) [address] [place] [address] MAGNESIUMon 10-19-2023 Magnesium [Mass/Vol] 2.0 mg/dL Normal 1.8-2.6 [facility] Comment on above: Performed By: #### C BCA, CMP, , 2776-04, 1987-08 #### [facility] ([id number]) [address], [address] [place] [address] PHOSPHORUSon 10-19-2023 Phosphate [Mass/Vol] 4.8 mg/dL Normal 2.4-4.9 [facility] Comment on above: Performed By: #### C BCA, CMP, , 2776-04, 1987-08 #### [facility] ([id number]) [address] [place] [address] PLATELET FUNCTIONon 10-19-19 24 COLLAGEN/ADP 72 sec Normal 0-114 [facility] Comment on above: Performed By: #### P FA, PINR, 27520-7 #### [facility] ([id number]) [address], [address] [place] [address] COLLAGEN/EPINEPHRINE 81 sec Normal 0-179 [facility] Comment on above: Performed By: #### P FA, PINR, 71474-4 #### [facility] ([id number]) [address], [address] [place] [address] PFA INTERP Platelet function is normal. If patient Normal [facility] Comment on above: Result Comment: hist ory/physical examination gives strong indication of a bleeding disorder, consider testing for other etiologies. Performed By: #### P FA, PINR, 79966-3 #### [facility] ([id number]) [address], [address] [place] [address] PROTIME AND INRon 10-19-2023 INR Coag (PPP) [Relative time] 0.9 {INR} Normal 0.8-1.1 [facility] Comment on above: Performed By: #### C VIRGILIO CMP, , 2776-04, 1987-08 #### [facility] ([id number]) [address] [address] [place] [address] PT Coag (PPP) [Time] 10.4 s Normal 9.8-13.2 [facility] Comment on above: Performed By: #### C BCA, CMP, , 2776-04, 1987-08 #### [facility] ([id number]) [address] [address] [place] [address] INR Coag (PPP) [Relative time] 0.9 {INR} Normal 0.8-1.1 [facility] Comment on above: Performed By: #### P INR, 50907-2, IMGB #### [facility] ([id number]) [address] [address] [place] [address] PT Coag (PPP) [Time] 10.4 s Normal 9.8-13.2 [facility] Comment on above: Performed By: #### P INR, 79579-9, IMGB #### [facility] ([id number]) [address], [address] [place] [address] aPTT Coag (PPP) [Time]on aPTT Coag (Bld) [Time] 40 s High 26-37 Pr [facility] Comment on above: Performed By: #### C BCA, CMP, , 2776-04, 1987-08 #### [facility] ([id number]) [address] [place] [address] aPTT Coag (Bld) [Time] 34 s Normal 26-37 Pr [facility] Comment on above: Performed By: #### P INR, 98914-7, IMGB #### [facility] ([id number]) [address], [address] [place] [address] Basement membrane IgG Qn (S) on 10-18-2023 Glomerular Base Memb IgG <0.2 Normal <1. 0 (Negative) [facility] Comment on above: Result Comment: NOTE Test Performed by: [place] [address] Mix Maker: Ledy Son Ph.D.; CLIA# [id number] Performed By: #### 8 9579-7 #### [facility] ([id number]) [address] [place] [address] CBC AND AUTO DIFFon 10-18-19 24 ABSOLUTE BASOPHIL 0.1 X10E9/L Normal 0.0-0.2 [facility] Comment on above: Performed By: #### C VIRGILIO, CMP, , 2776-04 ####[facility] ([id number])[address] [place] [address] ABSOLUTE NEUTROPHIL 4.5 X10E9/L Normal 1.5-6.6 [facility] Comment on above: Performed By: #### C BCA, CMP, , 2776-04 ####[facility] ([id number])[address] [place] [address] Basophils/100 WBC (Bld) 1.0 % Normal P [facility] Comment on above: Performed By: #### C EDEL POOLE, , 2776-04 ####[facility] ([id number])[address] [place] [address] Eosinophils (Bld) [#/Vol] 0.4 10*3/uL Normal 0.0-0.4 [facility] Comment on above: Performed By: #### Shahla POOLE CMP, , 2776-04 ####[facility] ([id number])[address] [place] [address] Eosinophils/100 WBC (Bld) 5.1 % Normal [facility] Comment on above: Performed By: #### hSahla POOLE CMP, , 2776-04 ####[facility] ([id number])[address] [place] [address] Erythrocyte distribution width (RBC) [Ratio] 15.0 % Normal 11.5-15.0 [facility] Comment on above: Performed By: #### Shahla POOLE CMP, , 2776-04 ####[facility] ([id number])[address] [place] [address] Hematocrit (Bld) [Volume fraction] 31.7 % Low 35-47 [facility] Comment on above: Performed By: #### Shahla POOLE CMP, , 2776-04 ####[facility] ([id number])[address] [place] [address] Hemoglobin (Bld) [Mass/Vol] 10.5 g/dL Low 11.7-15.5 [facility] Comment on above: Performed By: #### Shahla POOLE CMP, , 2776-04 ####[facility] ([id number])[address] [place] [address] Lymphocytes (Bld) [#/Vol] 2.1 10*3/uL Normal 1.0-3.5 [facility] Comment on above: Performed By: #### Shahla POOLE CMP, , 2776-04 ####[facility] ([id number])[address] [place] [address] Lymphocytes/100 WBC (Bld) 27.3 % Normal [facility] Comment on above: Performed By: #### Shahla POOLE CMP, , 2776-04 ####[facility] ([id number])[address] [place] [address] MCH (RBC) [Entitic mass] 27.7 pg Normal 27-34 [facility] Comment on above: Performed By: #### Shahla POOLE CMP, , 2776-04 ####[facility] ([id number])[address] [place] [address] MCHC (RBC) [Mass/Vol] 33.1 g/dL Normal 32-36 [facility] Comment on above: Performed By: #### Shahla POOLE CMP, , 2776-04 ####[facility] ([id number])[address] [place] [address] MCV (RBC) [Entitic vol] 84 fL Normal 80-100 [facility] Comment on above: Performed By: #### Shahla POOLE CMP, , 2776-04 ####[facility] ([id number])[address] [place] [address] Monocytes (Bld) [#/Vol] 0.7 10*3/uL Normal 0-0.9 [facility] Comment on above: Performed By: #### Shahla POOLE CMP, , 2776-04 ####[facility] ([id number])[address] [place] [address] Monocytes/100 WBC (Bld) 9.1 % Normal [facility] Comment on above: Performed By: #### Shahla POOLE CMP, , 2776-04 ####[facility] ([id number])[address] [place] [address] Neutrophils/100 WBC (Bld) 57.5 % Normal [facility] Comment on above: Performed By: #### Shahla POOLE CMP, , 2776-04 ####[facility] ([id number])[address] [place] [address] Platelet mean volume (Bld) [Entitic vol] 8.9 fL Normal 7-12 [facility] Comment on above: Performed By: #### Shahla POOLE CMP, , 2776-04 ####[facility] ([id number])[address] [place] [address] Platelets (Bld) [#/Vol] 328 10*3/uL Normal 150-450 [facility] Comment on above: Performed By: #### Shahla POOLE CMP, , 2776-04 ####[facility] ([id number])[address] [place] [address] RBC COUNT 3.77 X10E12/L Low 3.80-5.20 [facility] Comment on above: Performed By: #### Shahla POOLE CMP, , 2776-04 ####[facility] ([id number])[address] [place] [address] WBC (Bld) [#/Vol] 7.8 10*3/uL Normal 4.0-11.0 [facility] Comment on above: Performed By: #### Shahla POOLE CMP, , 2776-04 ####[facility] ([id number])[address] [place] [address] CBC auto differentialon 06-2 6-2024 Basophils (Bld) [#/Vol] 0.1 10*3/uL [facility] Basophils/100 WBC (Bld) 1.0 % P [facility] Eosinophils (Bld) [#/Vol] 0.4 10*3/uL [facility] Eosinophils/100 WBC (Bld) 5.1 % [facility] Erythrocyte distribution width (RBC) [Ratio] 15.0 % 11.5 - 15.0 % [facility] Hematocrit (Bld) [Volume fraction] 31.7 % Low 35 - 47 % [facility] Hemoglobin (Bld) [Mass/Vol] 10.5 g/dL Low 11.7 - 15.5 g/dL [facility] Interpretation and review of laboratory results Abnormal [facility] Lymphocytes (Bld) [#/Vol] 2.1 10*3/uL [facility] Lymphocytes/100 WBC (Bld) 27.3 % [facility] MCH (RBC) [Entitic mass] 27.7 pg 27 - 34 pg [facility] MCHC (RBC) [Mass/Vol] 33.1 g/dL 32 - 3 6 g/dL [facility] MCV (RBC) [Entitic vol] 84 fL 80 - 100 fL [facility] Monocytes (Bld) [#/Vol] 0.7 10*3/uL [facility] Monocytes/100 WBC (Bld) 9.1 % P [facility] Neutrophils (Bld) [#/Vol] 4.5 10*3/uL [facility] Neutrophils/100 WBC (Bld) 57.5 % [facility] Platelet mean volume (Bld) [Entitic vol] 8.9 fL 7 - 12 fL [facility] Platelets (Bld) [#/Vol] 328 10*3/uL [facility] RBC (Bld) [#/Vol] 3.77 10*6/uL Low [facility] WBC corrected for nucl RBC Auto (Bld) [#/Vol] 7.8 [facility] COMPREHENSIVE METABOLIC PANE Phu 10-18-2023 Albumin [Mass/Vol] 3.1 g/dL Low 3.2-5.3 [facility] Comment on above: Performed By: #### C BCA, CMP, , 2776-04 ####[facility] ([id number])[address] [place] [address] ALP [Catalytic activity/Vol] 57 U/L Normal 39-130 [facility] Comment on above: Performed By: #### C BCA, CMP, , 2776-04 ####[facility] ([id number])[address] [place] [address]80 ALT [Catalytic activity/Vol] 10 U/L Normal 0-31 [facility] Comment on above: Performed By: #### C BCA, CMP, , 2776-04 ####[facility] ([id number])[address] [place] [address] Anion gap [Moles/Vol] 11 mmol/L Normal 5-15 [facility] Comment on above: Performed By: #### C BCA, CMP, , 2776-04 ####[facility] ([id number])[address] [place] [address] [place] [address] AST [Catalytic activity/Vol] 14 U/L Normal 0-41 [facility] Comment on above: Performed By: #### C BCA, CMP, , 2776-04 ####[facility] ([id number])[address] [place] [address] [place] [address] Bilirubin [Mass/Vol] 0.7 mg/dL Normal 0.3-1.2 [facility] Comment on above: Performed By: #### C BCA, CMP, , 2776-04 ####[facility] ([id number])[address] [place] [address] [place] [address] Calcium [Mass/Vol] 9.3 mg/dL Normal 8.5-10.5 [facility] Comment on above: Performed By: #### C EDEL POOLE, , 2776-04 ####[facility] ([id number])[address] [place] [address] Chloride [Moles/Vol] 97 mmol/L Low 98-109 [facility] Comment on above: Performed By: #### C EDEL POOLE, , 2776-04 ####[facility] ([id number])[address] [place] [address]09 CO2 [Moles/Vol] 29 mmol/L Normal 22-32 [facility] Comment on above: Performed By: #### C EDEL POOLE, , 2776-04 ####[facility] ([id number])[address] [place] [address] Creatinine [Mass/Vol] 2.98 mg/dL High 0.40-1.00 [facility] Comment on above: Result Comment: METH OD TRACEABLE TO IDMS STANDARD Performed By: #### C EDEL POOLE, , 2776-04 ####[facility] ([id number])[address] [place] [address] GFR/1.73 sq M.predicted among non-blacks MDRD (S/P/Bld) [Vol rate/Area] 18 mL/min/{1.73_m2} Low >59 [facility] Comment on above: Result Comment: Reported eGFR is based on the CKD-EPI 1 equation that does not use a race coefficient. Performed By: #### C EDEL POOLE, , 2776-04 ####[facility] ([id number])[address] [place] [address] Glucose [Mass/Vol] 92 mg/dL Normal 65-99 [facility] Comment on above: Performed By: #### C EDEL POOLE, , 2776-04 ####[facility] ([id number])[address] [place] [address] Potassium [Moles/Vol] 4.2 mmol/L Normal 3.5-5.0 [facility] Comment on above: Performed By: #### C BCA, CMP, 63460-3, 2777-1 ####[facility] ([id number])[address] [place] [address]38 Protein [Mass/Vol] 6.0 g/dL Normal 6.0-8.0 [facility] Comment on above: Performed By: #### C VIRGILIO, CMP, , 7-1 ####[facility] ([id number])[address] [place] [address]889 Sodium [Moles/Vol] 137 mmol/L Normal 134-146 [facility] Comment on above: Performed By: #### C VIRGILIO, CMP, , 27771 ####[facility] ([id number])[address] [place] [address] Urea nitrogen [Mass/Vol] 37 mg/dL High 5-23 [facility] Comment on above: Performed By: #### C BCA, CMP, , 2777-1 ####[facility] ([id number])[address] [place] [address]20 Calcium.ionized (Bld) [Moles /Vol]on 10-18-2023 [facility] PORTABLE ICA 4.7 mg/dL Normal 4.5-5.3 [facility] Comment on above: Performed By: #### 8 9579-7 #### [facility] ([id number]) [address] [place] [address] Clinical Pathology Reviewon 10-18-2023 [facility] [address] [place] [address] Clinical Pathology Report Patient Name:DANIELLE MONTANA:1965 (Age: 58)Gender:FTaken:09/23eported:hysician(s):Soniya Flores MD ([phone])Copy To: Rec. 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 No monoclonal protein identified. Report Electronically Signed Out df/10/18/2023nicci Gomez MD [facility] [place] [address], License number: [id number]. Clinical History D17.9, I16.0, E87.6. URINE PROTEIN ELECTROPHORESIS SAMPLE NUMBER: [id number] RELATIVE ELECTROPHORETIC CONCENTRATIONS (%) ? 100.0 Urine Protein 1410 mg/L (Electrophoretic gels and densitometric tracings on file in lab.) Specimen(s) Received Urine Protein Electrophoresis Fee Codes(s): 1; 98488-63 COPATH [facility] Comprehensive metabolic pane phu 10-18-2023 Albumin [Mass/Vol] 3.1 g/dL Low 3.2 - 5.3 g/dL [facility] ALP [Catalytic activity/Vol] 57 U/L 39 - 130 U/L [facility] ALT No additional P-5'-P [Catalytic activity/Vol] 10 U/L 0 - 31 U/L [facility] Anion gap [Moles/Vol] 11 mmol/L 5 - 15 mmol/L [facility] AST [Catalytic activity/Vol] 14 U/L 0 - 41 U/L [facility] Bilirubin [Mass/Vol] 0.7 mg/dL 0.3 - 1 .2 mg/dL [facility] Calcium [Mass/Vol] 9.3 mg/dL 8.5 - 10. 5 mg/dL [facility] Chloride [Moles/Vol] 97 mmol/L Low 98 - 10 9 mmol/L [facility] CO2 [Moles/Vol] 29 mmol/L 22 - 32 mmol/L [facility] Creatinine [Mass/Vol] 2.98 mg/dL High 0.40 - 1.00 mg/dL [facility] Comment on above: METHOD TRACEABLE TO [facility] STANDARD eGFR (CKD-EPI)non-race dependent 18 Low - PINF [facility] Comment on above: Reported eGFR is based on the CKD-EPI 2020 equation that does not use a race coefficient. Glucose [Mass/Vol] 92 mg/dL 65 - 99 mg/dL [facility] Interpretation and review of laboratory results Abnormal [facility] Potassium [Moles/Vol] 4.2 mmol/L 3.5 - 5.0 mmol/L [facility] Protein [Mass/Vol] 6.0 g/dL 6.0 - 8.0 g/dL [facility] Sodium [Moles/Vol] 137 mmol/L 134 - 146 mmol/L [facility] Urea nitrogen [Mass/Vol] 37 mg/dL High 5 - 23 mg/dL [facility] MAGNESIUMon 10-18-2023 Magnesium [Mass/Vol] 2.0 mg/dL Normal 1.8-2.6 [facility] Comment on above: Performed By: #### C BCA, CMP, 90986-8, 2777-1 ####[facility] ([id number])[address] [place] [address] Magnesiumon 10-18-2023 Magnesium [Mass/Vol] 2.0 mg/dL 1.8 - 2 .6 mg/dL [facility] Myeloperoxidase IgG Qn (S)on 10-18-2023 Myeloperoxidase IgG >8.0 High <0.4 (Negative) [facility] Comment on above: Result Comment: NOTE Interpretation: Positive (>=1.0) Test Performed by: [address] [address] Mix Maker: Ledy Son Ph.D.; CLIA# [id number] Performed By: #### 8 9579-7 #### [facility] ([id number]) [address] [place] [address] No Panel Informationon 10-17 [facility] PHOSPHORUSon 10-18-2023 Phosphate [Mass/Vol] 5.1 mg/dL High 2.4-4.9 [facility] Comment on above: Performed By: #### C VIRGILIO, CMP, 55112-4, 2777-1 ####[facility] ([id number])[address] [place] [address] POCT Ionized Calciumon 10-17 Calcium.ionized (Bld) [Moles/Vol] 4.7 mg/dL 4.5 - 5.3 mg/dL [facility] Phosphate [Mass/Vol]on 10-17 Interpretation and review of laboratory results Abnormal [facility] Phosphoruson 10-18-2023 Phosphate [Mass/Vol] 5.1 mg/dL High 2.4 - 4 .9 mg/dL [facility] CBC AND AUTO DIFFon 10-17-19 ABSOLUTE BASOPHIL 0.1 X10E9/L Normal 0.0-0.2 [facility] Comment on above: Performed By: #### C VIRGILIO, BMP, , 69559-6, 46484-0 #### [facility] ([id number]) [address] [place] [address]15 ABSOLUTE NEUTROPHIL 4.9 X10E9/L Normal 1.5-6.6 [facility] Comment on above: Performed By: #### C VIRGILIO, BMP, , 17791-7, 40008-2 #### [facility] ([id number]) [address] [place] [address] 68862 Basophils/100 WBC (Bld) 0.7 % Normal [facility] Comment on above: Performed By: #### C BCA, BMP, 47277-6, 83258-4, 95327-8 #### [facility] ([id number]) [address] [place] [address] 48608 Eosinophils (Bld) [#/Vol] 0.3 10*3/uL Normal 0.0-0.4 [facility] Comment on above: Performed By: #### C VIRGILIO, BMP, , 99596-9, 83900-1 #### [facility] ([id number]) [address] [place] [address] 44113 Eosinophils/100 WBC (Bld) 4.3 % Normal [facility] Comment on above: Performed By: #### C VIRGILIO, BMP, , 11547-7, 43022-0 #### [facility] ([id number]) [address] [place] [address] 76519 Erythrocyte distribution width (RBC) [Ratio] 14.7 % Normal 11.5-15.0 [facility] Comment on above: Performed By: #### Shahla POOLE, MARIO, , 50536-9, 56105-7 #### [facility] ([id number]) [address] [place] [address] 25086 Hematocrit (Bld) [Volume fraction] 30.3 % Low 35-47 [facility] Comment on above: Performed By: #### C VIRGILIO, BMP, , 70406-1, 61516-2 #### [facility] ([id number]) [address] [place] [address] 02552 Hemoglobin (Bld) [Mass/Vol] 10.1 g/dL Low 11.7-15.5 [facility] Comment on above: Performed By: #### C VIRGILIO, BMP, , 85562-6, 36396-2 #### [facility] ([id number]) [address] [place] [address] 24531 Lymphocytes (Bld) [#/Vol] 1.9 10*3/uL Normal 1.0-3.5 [facility] Comment on above: Performed By: #### C BCA, BMP, , 69842-6, 67723-6 #### [facility] ([id number]) [address] [place] [address] 63322 Lymphocytes/100 WBC (Bld) 24.6 % Normal [facility] Comment on above: Performed By: #### C BCA, BMP, , 56907-5, 29696-2 #### [facility] ([id number]) [address] [place] [address] 18931 MCH (RBC) [Entitic mass] 27.9 pg Normal 27-34 [facility] Comment on above: Performed By: #### C VIRGILIO, BMP, , 29148-8, 04034-1 #### [facility] ([id number]) [address] [place] [address] 63065 MCHC (RBC) [Mass/Vol] 33.4 g/dL Normal 32-36 [facility] Comment on above: Performed By: #### C BCA, BMP, , 30281-8, 77539-3 #### [facility] ([id number]) [address] [place] [address] 90825 MCV (RBC) [Entitic vol] 84 fL Normal 80-100 [facility] Comment on above: Performed By: #### Shahla BCA, BMP, , 36535-5, 28356-8 #### [facility] ([id number]) [address] [place] [address] 57971 Monocytes (Bld) [#/Vol] 0.6 10*3/uL Normal 0-0.9 [facility] Comment on above: Performed By: #### Shahla BCA, BMP, , 49092-4, 33750-6 #### [facility] ([id number]) [address] [place] [address] 87419 Monocytes/100 WBC (Bld) 8.3 % Normal [facility] Comment on above: Performed By: #### C BCA, BMP, 13089-2, 19497-2, 47696-7 #### [facility] ([id number]) [address] [place] [address] 89779 Neutrophils/100 WBC (Bld) 62.1 % Normal [facility] Comment on above: Performed By: #### C BCA, BMP, 83612-4, 32324-3, 38488-9 #### [facility] ([id number]) [address] [place] [address] 49068 Platelet mean volume (Bld) [Entitic vol] 9.0 fL Normal 7-12 [facility] Comment on above: Performed By: #### Shahla BCA, BMP, 89449-1, 11931-6, 96097-8 #### [facility] ([id number]) [address] [place] [address] 93729 Platelets (Bld) [#/Vol] 278 10*3/uL Normal 150-450 [facility] Comment on above: Performed By: #### C BCA, BMP, 76047-0, 82325-0, 26181-1 #### [facility] ([id number]) [address] [place] [address] 09001 RBC COUNT 3.62 X10E12/L Low 3.80-5.20 [facility] Comment on above: Performed By: #### C BCA, BMP, 70658-9, 26442-3, 40573-2 #### [facility] ([id number]) [address] [place] [address] 67795 WBC (Bld) [#/Vol] 7.9 10*3/uL Normal 4.0-11.0 [facility] Comment on above: Performed By: #### C BCA, BMP, 49579-3, 98843-1, 88322-4 #### [facility] ([id number]) [address] [facility], [place] [address] CBC auto differentialon 09-23 Basophils (Bld) [#/Vol] 0.1 10*3/uL [facility] Basophils/100 WBC (Bld) 0.7 % [facility] Eosinophils (Bld) [#/Vol] 0.3 10*3/uL [facility] Eosinophils/100 WBC (Bld) 4.3 % [facility] Erythrocyte distribution width (RBC) [Ratio] 14.7 % 11.5 - 15.0 % [facility] Hematocrit (Bld) [Volume fraction] 30.3 % Low 35 - 47 % [facility] Hemoglobin (Bld) [Mass/Vol] 10.1 g/dL Low 11.7 - 15.5 g/dL [facility] Interpretation and review of laboratory results Abnormal [facility] Lymphocytes (Bld) [#/Vol] 1.9 10*3/uL [facility] Lymphocytes/100 WBC (Bld) 24.6 % [facility] MCH (RBC) [Entitic mass] 27.9 pg 27 - 34 pg [facility] MCHC (RBC) [Mass/Vol] 33.4 g/dL 32 - 3 6 g/dL [facility] MCV (RBC) [Entitic vol] 84 fL 80 - 100 fL [facility] Monocytes (Bld) [#/Vol] 0.6 10*3/uL [facility] Monocytes/100 WBC (Bld) 8.3 % [facility] Neutrophils (Bld) [#/Vol] 4.9 10*3/uL [facility] Neutrophils/100 WBC (Bld) 62.1 % [facility] Platelet mean volume (Bld) [Entitic vol] 9.0 fL 7 - 12 fL [facility] Platelets (Bld) [#/Vol] 278 10*3/uL [facility] RBC (Bld) [#/Vol] 3.62 10*6/uL Low [facility] WBC corrected for nucl RBC Auto (Bld) [#/Vol] 7.9 [facility] COMPREHENSIVE METABOLIC PANE Phu 10-17-2023 Albumin [Mass/Vol] 3.0 g/dL Low 3.2-5.3 [facility] Comment on above: Performed By: #### C BCA, BMP, 84458-0, 88570-7, 06782-2 #### [facility] ([id number]) [address] [place] [address] 62143 ALP [Catalytic activity/Vol] 56 U/L Normal 39-130 [facility] Comment on above: Performed By: #### C BCA, BMP, 78552-8, 63780-0, 28775-2 #### [facility] ([id number]) [address] [place] [address] 32168 ALT [Catalytic activity/Vol] 10 U/L Normal 0-31 [facility] Comment on above: Performed By: #### C BCA, BMP, 05041-9, 09903-3, 76558-2 #### [facility] ([id number]) [address] [place] [address] 53240 Anion gap [Moles/Vol] 10 mmol/L Normal 5-15 [facility] Comment on above: Performed By: #### C BCA, BMP, 04743-2, 38602-3, 21619-4 #### [facility] ([id number]) [address] [place] [address] 02595 AST [Catalytic activity/Vol] 14 U/L Normal 0-41 [facility] Comment on above: Performed By: #### C BCA, BMP, 58059-7, 56247-5, 74534-5 #### [facility] ([id number]) [address] [place] [address] 84453 Bilirubin [Mass/Vol] 0.7 mg/dL Normal 0.3-1.2 [facility] Comment on above: Performed By: #### C BCA, BMP, 85087-0, 61334-2, 44859-1 #### [facility] ([id number]) [address] [place] [address] 83349 Calcium [Mass/Vol] 8.8 mg/dL Normal 8.5-10.5 [facility] Comment on above: Performed By: #### C BCA, BMP, 97550-2, 66580-6, 07310-3 #### [facility] ([id number]) [address] [place] [address] 67447 Chloride [Moles/Vol] 101 mmol/L Normal 98-109 [facility] Comment on above: Performed By: #### C BCA, BMP, 38729-8, 85389-8, 27102-1 #### [facility] ([id number]) [address] [place] [address] 69078 CO2 [Moles/Vol] 28 mmol/L Normal 22-32 [facility] Comment on above: Performed By: #### C BCA, BMP, 86518-4, 74141-7, 01589-6 #### [facility] ([id number]) [address] [place] [address] 38712 Creatinine [Mass/Vol] 2.77 mg/dL High 0.40-1.00 [facility] Comment on above: Result Comment: METH OD TRACEABLE TO IDMS STANDARD Performed By: #### C BCA, BMP, 10465-6, 82942-9, 46549-0 #### [facility] ([id number]) [address] [place] [address] 57259 GFR/1.73 sq M.predicted among non-blacks MDRD (S/P/Bld) [Vol rate/Area] 19 mL/min/{1.73_m2} Low >59 [facility] Comment on above: Result Comment: Reported eGFR is based on the CKD-EPI 2020 equation that does not use a race coefficient. Performed By: #### C BCA, BMP, 78263-0, 35700-5, 45768-5 #### [facility] ([id number]) [address] [place] [address] 71137 Glucose [Mass/Vol] 97 mg/dL Normal 65-99 [facility] Comment on above: Performed By: #### C BCA, BMP, , 36658-3, 90508-5 #### [facility] ([id number]) [address] [place] [address] 64468 Potassium [Moles/Vol] 3.6 mmol/L Normal 3.5-5.0 [facility] Comment on above: Performed By: #### C BCA, BMP, , 76935-0, 07669-8 #### [facility] ([id number]) [address] [place] [address] 39147 Protein [Mass/Vol] 5.7 g/dL Low 6.0-8.0 [facility] Comment on above: Performed By: #### C BCA, BMP, , 15142-1, 05179-3 #### [facility] ([id number]) [address] [place] [address] 02093 Sodium [Moles/Vol] 139 mmol/L Normal 134-146 [facility] Comment on above: Performed By: #### C BCA, BMP, , 47526-5, 72549-9 #### [facility] ([id number]) [address] [place] [address] [place] [address] Urea nitrogen [Mass/Vol] 26 mg/dL High 5-23 [facility] Comment on above: Performed By: #### C BCA, BMP, , 94215-8, 73764-8 #### [facility] ([id number]) [address] [place] [address] 38750 Calcium.ionized (Bld) [Moles /Vol]on 10-17-2023 [facility] PORTABLE ICA 4.7 mg/dL Normal 4.5-5.3 [facility] Comment on above: Performed By: #### C BCA, BMP, 87474-0, 76389-5, 83906-4 #### [facility] ([id number]) [address] [facility], [place] [address] Comprehensive metabolic pane phu 10-17-2023 Albumin [Mass/Vol] 3.0 g/dL Low 3.2 - 5.3 g/dL [facility] ALP [Catalytic activity/Vol] 56 U/L 39 - 130 U/L [facility] ALT No additional P-5'-P [Catalytic activity/Vol] 10 U/L 0 - 31 U/L [facility] Anion gap [Moles/Vol] 10 mmol/L 5 - 15 mmol/L [facility] AST [Catalytic activity/Vol] 14 U/L 0 - 41 U/L [facility] Bilirubin [Mass/Vol] 0.7 mg/dL 0.3 - 1 .2 mg/dL [facility] Calcium [Mass/Vol] 8.8 mg/dL 8.5 - 10. 5 mg/dL [facility] Chloride [Moles/Vol] 101 mmol/L 98 - 10 9 mmol/L [facility] CO2 [Moles/Vol] 28 mmol/L 22 - 32 mmol/L [facility] Creatinine [Mass/Vol] 2.77 mg/dL High 0.40 - 1.00 mg/dL [facility] Comment on above: METHOD TRACEABLE TO IDMO STANDARD eGFR (CKD-EPI)non-race dependent 19 Low - PINF [facility] Comment on above: Reported eGFR is based on the CKD-EPI 2020 equation that does not use a race coefficient. Glucose [Mass/Vol] 97 mg/dL 65 - 99 mg/dL [facility] Interpretation and review of laboratory results Abnormal [facility] Potassium [Moles/Vol] 3.6 mmol/L 3.5 - 5.0 mmol/L [facility] Protein [Mass/Vol] 5.7 g/dL Low 6.0 - 8.0 g/dL [facility] Sodium [Moles/Vol] 139 mmol/L 134 - 146 mmol/L [facility] Urea nitrogen [Mass/Vol] 26 mg/dL High 5 - 23 mg/dL [facility] Creatinine, urine, 24 houron 10-17-2023 Creatinine (24H U) [Mass/Time] 1.38 [facility] FECAL OCCULT BLOODon 024 Hemoglobin.gastrointesti nal Ql (Stl) Negative Normal NEG [facility] Comment on above: Performed By: #### 2 335-8 ####[facility] ([id number])[address] [place] [address] Glomerular Basement Membrane IgG, Serumon 10-17-2023 Basement membrane IgG Qn (S) U <1.0 (Negative) U [facility] Comment on above: NOTE Test Performed by: [place] [address] Mix Maker: Ledy Son Ph.D.; CLIA# [id number] Hemoglobin.gastrointestinal Ql (Stl)on 10-17-2023 [facility] MAGNESIUMon 10-17-2023 Magnesium [Mass/Vol] 2.0 mg/dL Normal 1.8-2.6 [facility] Comment on above: Performed By: #### C BCA, [facility], 91911-7, 00909-0, 43128-5 #### [facility] ([id number]) [address] [place] [address] 67891 Magnesiumon 10-17-2023 Magnesium [Mass/Vol] 2.0 mg/dL 1.8 - 2 .6 mg/dL [facility] Myeloperoxidase Antibodies, IgG, Serumon 10-17-2023 Myeloperoxidase IgG Qn (S) U High <0.4 (Negative) U [facility] Comment on above: NOTE Interpretation: Positive (>=1.0) Test Performed by: [place] [address] Mix Maker: Ledy Son Ph.D.; CLIA# [id number] Myeloperoxidase IgG Qn (S)on 10-17-2023 Interpretation and review of laboratory results Abnormal [facility] [place] Lung Ventilationon 2023 Clinical history:Elevated d-dimer [...] Tony Lowery MD on 10/17/2023 9:13 AM [facility] Tony Lowery MD - 10/17/2023 Clinical history:Elevated [...] Tony Lowery MD on 10/17/2023 9:13 AM [facility] Radiology Study observation (narrative) [facility] [place] Lung VentilationOrdered B y: Tony Lowery on 10-17-2023 [facility] Work Phone: [place] VENTILATION PERFUSION CHAZ G [...] Lowery MD on 10/17/2023 9:13 AM Normal [facility] No Panel Informationon 10-16 [facility] Occult blood x 1, stoolon Hemoglobin.gastrointesti nal Ql (Stl) Negative Negative^N egative [facility] PHOSPHORUSon 10-17-2023 Phosphate [Mass/Vol] 4.1 mg/dL Normal 2.4-4.9 [facility] Comment on above: Performed By: #### C BCA, BMP, 78361-0, 09378-5, 98590-0 #### [facility] ([id number]) [address] [place] [address] 91591 POCT Ionized Calciumon 10-16 Calcium.ionized (Bld) [Moles/Vol] 4.7 mg/dL 4.5 - 5.3 mg/dL [facility] POTASSIUMon 10-17-2023 Potassium [Moles/Vol] 4.2 mmol/L Normal 3.5-5.0 [facility] Comment on above: Performed By: #### 2 823-3 ####[facility] ([id number])[address] [place] [address] 68436 Phosphate [Mass/Vol]on 10-16 [facility] Phosphoruson 10-17-2023 Phosphate [Mass/Vol] 4.1 mg/dL 2.4 - 4 .9 mg/dL [facility] Potassiumon 10-17-2023 Potassium [Moles/Vol] 4.2 mmol/L 3.5 - 5.0 mmol/L [facility] Potassium [Moles/Vol]on 09-23 [facility] Protein, urine, 24 houron Interpretation and review of laboratory results Abnormal [facility] Protein (24H U) [Mass/Time] 6380 High [facility] Proteinase 3 IgGon Proteinase 3 IgG IA Qn 0.2 U <0.4 (Negative) [facility] Comment on above: NOTE Test Performed by: [address], [place] [address] Mix Maker: Ledy Son Ph.D.; CLIA# [id number] THYROID PROFILEon 10-17-2023 Free T4 [Mass/Vol] 1.19 ng/dL Normal 0.61-1.60 [facility] Comment on above: Performed By: #### C VIRGILIO, [facility], 07333-6, 94716-8, 54473-1 #### [facility] ([id number]) [address] [place] [address] 28855 TSH 2.17 uIU/mL Normal 0.49-4.67 [facility] Comment on above: Performed By: #### C VIRGILIO, MARIO, 60724-9, 18571-4, 91293-2 #### [facility] ([id number]) [address] [place] [address] 52843 Thyroid profile includes TSH FT4on 10-17-2023 Free T4 [Mass/Vol] 1.19 ng/dL 0.61 - 1.60 ng/dL [facility] TSH Qn 2.17 m[IU]/L [facility] US.doppler Lower extremity v ein - [...] superficial vein thrombosis of the lower extremities. [facility] US.doppler Lower extremity v ein - bilateralOrdered By: Jong Haddad on 10-17-2023 [facility] Work Phone: Urine Volume and Timeon 09-23 Specimen volume Unsp time (U) 4400 mL [facility] Urine output 24 hour 24 h [facility] 24 HR URINE CREATININEon URINE CREATININE 1.38 g/24h Normal 0.80-1.80 [facility] Comment on above: Performed By: #### U CR, UPRO ####[facility] ([id number])[address] [facility] [address] [place] [address] 11970 24 HR URINE TOTAL PROTEINon 10-16-2023 URINE TOTAL PROTEIN 6380 mg/24h High 0-150 [facility] Comment on above: Performed By: #### U CR, UPRO ####[facility] ([id number])[address] [facility], [address] [place] [address] 42547 SAUL Screen w/ Reflexon 10-15 Nuclear Ab IA Ql (S) Negative Negativ e^N egative [facility] Comment on above: Testing performed using multiplex flow immunoassay. Eleven different antigens associated with systemic autoimmune diseases (dsDNA,Sm,Sm/STUDENT DEVELOPMENT DEAN,STUDENT DEVELOPMENT DEAN,Chromatin, SSA,SSB,Yoly-1,Scl70,Ribo P,Centromere B) are included in this screening test. CBC AND AUTO DIFFon 10-16-19 24 ABSOLUTE BASOPHIL 0.0 X10E9/L Normal 0.0-0.2 [facility] Comment on above: Performed By: #### C BCA, BMP, 12656-7, 20291-2, 35846-7 #### [facility] ([id number]) [address] [place] [address], [place] [address] ABSOLUTE NEUTROPHIL 4.9 X10E9/L Normal 1.5-6.6 [facility] Comment on above: Performed By: #### C BCA, BMP, 30656-5, 30739-2, 34451-5 #### [facility] ([id number]) [address] [place] [address] 31368 Basophils/100 WBC (Bld) 0.6 % Normal [facility] Comment on above: Performed By: #### C BCA, BMP, , 45987-6, 32722-6 #### [facility] ([id number]) [address] [place] [address] 06852 Eosinophils (Bld) [#/Vol] 0.3 10*3/uL Normal 0.0-0.4 [facility] Comment on above: Performed By: #### C BCA, BMP, , 60642-8, 68703-5 #### [facility] ([id number]) [address] [place] [address] 02649 Eosinophils/100 WBC (Bld) 4.2 % Normal [facility] Comment on above: Performed By: #### C BCA, BMP, , 75006-7, 79523-7 #### [facility] ([id number]) [address] [place] [address] 43962 Erythrocyte distribution width (RBC) [Ratio] 14.8 % Normal 11.5-15.0 [facility] Comment on above: Performed By: #### C BCA, BMP, , 04758-4, 88746-5 #### [facility] ([id number]) [address] [place] [address] 39854 Hematocrit (Bld) [Volume fraction] 28.5 % Low 35-47 [facility] Comment on above: Performed By: #### C BCA, BMP, 03917-1, 55751-2, 76686-9 #### [facility] ([id number]) [address] [place] [address] 97679 Hemoglobin (Bld) [Mass/Vol] 9.5 g/dL Low 11.7-15.5 [facility] Comment on above: Performed By: #### C VIRGILIO, MARIO, , 38332-2, 80695-8 #### [facility] ([id number]) [address] [place] [address] 83609 Lymphocytes (Bld) [#/Vol] 2.1 10*3/uL Normal 1.0-3.5 [facility] Comment on above: Performed By: #### C VIRGILIO, MARIO, , 17445-1, 40388-7 #### [facility] ([id number]) [address] [place] [address] 06912 Lymphocytes/100 WBC (Bld) 26.6 % Normal [facility] Comment on above: Performed By: #### C VIRGILIO, MARIO, , 46661-1, 46893-2 #### [facility] ([id number]) [address] [place] [address] 05296 MCH (RBC) [Entitic mass] 27.7 pg Normal 27-34 [facility] Comment on above: Performed By: #### Shahla POOLE, MARIO, , 04322-9, 02573-1 #### [facility] ([id number]) [address] [place] [address] 33328 MCHC (RBC) [Mass/Vol] 33.6 g/dL Normal 32-36 [facility] Comment on above: Performed By: #### C VIRGILIO, BMP, , 02524-9, 78915-6 #### [facility] ([id number]) [address] [place] [address] 43540 MCV (RBC) [Entitic vol] 83 fL Normal 80-100 P [facility] Comment on above: Performed By: #### C BCA, BMP, 17650-8, 03146-5, 62552-8 #### [facility] ([id number]) [address] [place] [address] 81347 Monocytes (Bld) [#/Vol] 0.7 10*3/uL Normal 0-0.9 [facility] Comment on above: Performed By: #### C BCA, BMP, 01626-4, 32551-8, 80010-2 #### [facility] ([id number]) [address] [place] [address] 34053 Monocytes/100 WBC (Bld) 8.2 % Normal P [facility] Comment on above: Performed By: #### C BCA, BMP, 78298-1, 90199-1, 53659-0 #### [facility] ([id number]) [address] [place] [address] 53995 Neutrophils/100 WBC (Bld) 60.4 % Normal [facility] Comment on above: Performed By: #### C BCA, BMP, 77043-0, 76320-2, 16335-3 #### [facility] ([id number]) [address] [place] [address] 07578 Platelet mean volume (Bld) [Entitic vol] 8.9 fL Normal 7-12 [facility] Comment on above: Performed By: #### C BCA, BMP, 29007-5, 29183-7, 57159-8 #### [facility] ([id number]) [address] [place] [address] 73555 Platelets (Bld) [#/Vol] 252 10*3/uL Normal 150-450 [facility] Comment on above: Performed By: #### C BCA, BMP, 01122-0, 69579-1, 25137-6 #### [facility] ([id number]) [address] [place] [address] RBC COUNT 3.45 X10E12/L Low 3.80-5.20 [facility] Comment on above: Performed By: #### C MARIO POOLE, 20757-2, 02375-7, 03797-8 #### [facility] ([id number]) [address] [place] [address] 74084 WBC (Bld) [#/Vol] 8.0 10*3/uL Normal 4.0-11.0 [facility] Comment on above: Performed By: #### C MARIO POOLE, 92979-9, 38001-1, 71850-7 #### [facility] ([id number]) [address] [place] [address] 62169 CBC auto differentialon 09-23 Basophils (Bld) [#/Vol] 0.0 10*3/uL [facility] Basophils/100 WBC (Bld) 0.6 % [facility] Eosinophils (Bld) [#/Vol] 0.3 10*3/uL [facility] Eosinophils/100 WBC (Bld) 4.2 % [facility] Erythrocyte distribution width (RBC) [Ratio] 14.8 % 11.5 - 15.0 % [facility] Hematocrit (Bld) [Volume fraction] 28.5 % Low 35 - 47 % [facility] Hemoglobin (Bld) [Mass/Vol] 9.5 g/dL Low 11.7 - 15.5 g/dL [facility] Interpretation and review of laboratory results Abnormal [facility] Lymphocytes (Bld) [#/Vol] 2.1 10*3/uL [facility] Lymphocytes/100 WBC (Bld) 26.6 % [facility] MCH (RBC) [Entitic mass] 27.7 pg 27 - 34 pg [facility] MCHC (RBC) [Mass/Vol] 33.6 g/dL 32 - 3 6 g/dL [facility] MCV (RBC) [Entitic vol] 83 fL 80 - 100 fL [facility] Monocytes (Bld) [#/Vol] 0.7 10*3/uL [facility] Monocytes/100 WBC (Bld) 8.2 % P [facility] Neutrophils (Bld) [#/Vol] 4.9 10*3/uL [facility] Neutrophils/100 WBC (Bld) 60.4 % [facility] Platelet mean volume (Bld) [Entitic vol] 8.9 fL 7 - 12 fL [facility] Platelets (Bld) [#/Vol] 252 10*3/uL [facility] RBC (Bld) [#/Vol] 3.45 10*6/uL Low [facility] WBC corrected for nucl RBC Auto (Bld) [#/Vol] 8.0 [facility] COMPREHENSIVE METABOLIC PANE Phu 10-16-2023 Albumin [Mass/Vol] 2.7 g/dL Low 3.2-5.3 [facility] Comment on above: Performed By: #### C BCA, BMP, 77247-9, 29556-1, 15944-4 #### [facility] ([id number]) [address] [place] [address] 72209 ALP [Catalytic activity/Vol] 55 U/L Normal 39-130 [facility] Comment on above: Performed By: #### C BCA, BMP, 11366-0, 10075-9, 22451-9 #### [facility] ([id number]) [address] [place] [address] 53049 ALT [Catalytic activity/Vol] 9 U/L Normal 0-31 [facility] Comment on above: Performed By: #### C BCA, BMP, 20688-8, 32933-6, 17471-3 #### [facility] ([id number]) [address] [place] [address] 90852 Anion gap [Moles/Vol] 8 mmol/L Normal 5-15 [facility] Comment on above: Performed By: #### C BCA, BMP, 33473-5, 46921-3, 26219-4 #### [facility] ([id number]) [address] [place] [address] 80693 AST [Catalytic activity/Vol] 13 U/L Normal 0-41 [facility] Comment on above: Performed By: #### C BCA, BMP, 02740-2, 02777-6, 02926-0 #### [facility] ([id number]) [address] [place] [address] 15094 Bilirubin [Mass/Vol] 0.4 mg/dL Normal 0.3-1.2 [facility] Comment on above: Performed By: #### C BCA, BMP, , 98940-1, 17442-6 #### [facility] ([id number]) [address] [place] [address] 10744 Calcium [Mass/Vol] 8.4 mg/dL Low 8.5-10.5 [facility] Comment on above: Performed By: #### C BCA, BMP, , 89020-4, 65177-1 #### [facility] ([id number]) [address] [place] [address] 66893 Chloride [Moles/Vol] 101 mmol/L Normal 98-109 [facility] Comment on above: Performed By: #### C BCA, BMP, , 70445-5, 85995-8 #### [facility] ([id number]) [address] [place] [address] 72379 CO2 [Moles/Vol] 28 mmol/L Normal 22-32 [facility] Comment on above: Performed By: #### C BCA, BMP, , 38768-3, 07907-8 #### [facility] ([id number]) [address] [place] [address] 08661 Creatinine [Mass/Vol] 2.63 mg/dL High 0.40-1.00 [facility] Comment on above: Result Comment: METH OD TRACEABLE TO IDMS STANDARD Performed By: #### C VIRGILIO, MARIO, , 06633-3, 35496-1 #### [facility] ([id number]) [address] [place] [address] 99320 GFR/1.73 sq M.predicted among non-blacks MDRD (S/P/Bld) [Vol rate/Area] 20 mL/min/{1.73_m2} Low >59 [facility] Comment on above: Result Comment: Reported eGFR is based on the CKD-EPI 2020 equation that does not use a race coefficient. Performed By: #### C VIRGILIO, MARIO, , 91974-7, 22845-5 #### [facility] ([id number]) [address] [place] [address] 90564 Glucose [Mass/Vol] 107 mg/dL High 65-99 [facility] Comment on above: Performed By: #### C VIRGILIO, MARIO, , 26223-9, 90907-0 #### [facility] ([id number]) [address] [place] [address] 17315 Potassium [Moles/Vol] 3.2 mmol/L Low 3.5-5.0 [facility] Comment on above: Performed By: #### C VIRGILIO, MARIO, , 56563-3, 14414-5 #### [facility] ([id number]) [address] [place] [address] 56171 Protein [Mass/Vol] 5.4 g/dL Low 6.0-8.0 [facility] Comment on above: Performed By: #### C VIRGILIO, BMP, , 19578-9, 88321-6 #### [facility] ([id number]) [address] [place] [address] 63768 Sodium [Moles/Vol] 137 mmol/L Normal 134-146 [facility] Comment on above: Performed By: #### C BCA, BMP, 91585-0, 03199-3, 38847-8 #### [facility] ([id number]) [address] [place] [address] 87839 Urea nitrogen [Mass/Vol] 23 mg/dL Normal 5-23 [facility] Comment on above: Performed By: #### C BCA, BMP, 02917-5, 91506-4, 00831-9 #### [facility] ([id number]) [address] [place] [address] 88644 Calcium.ionized (Bld) [Moles /Vol]on 10-16-2023 [facility] PORTABLE ICA 4.6 mg/dL Normal 4.5-5.3 [facility] Comment on above: Performed By: #### C BCA, BMP, 19117-0, 26145-4, 43612-8 #### [facility] ([id number]) [address] [place] [address] 12887 Cardiac echo study Procedure Ordered By: Cole Hannah on 10-16-2023 Aortic root 3.30 cm [employer] Work Phone: AV mean gradient 7.00 mmHg [employer] Work Phone: AV peak gradient 13.99 mmHg [employer] Work Phone: AV peak gerber 187.00 cm/s [employer] Work Phone: AV valve area 2.07 cm2 [employer] Work Phone: AV Velocity Ratio 0.66 [facility] Work Phone: AV VTI 38.50 cm [employer] Work Phone: E wave deceleration time 232.00 msec [employer] Work Phone: E/A ratio 1.62 [employer] Work Phone: Echo EF Estimated 69 % [facility] Work Phone: EF 69 % [facility] Work Phone: Energy loss index 1.18 [email or web address] Work Phone: FS 38 % 28 - 44 % [facility] [employer] Work Phone: Interventricular Septum Diastolic Thickness by 2D 10 cm [facility] [employer] Work Phone: IVS 1.00 cm 0.6 - 1.1 cm [facility] [employer] Work Phone: LA size 3.70 cm [employer] Work Phone: LA volume 71.00 cm3 [employer] Work Phone: LA Volume Index 28.1 mL/m2 [facility] [employer] Work Phone: Left Ventricle Mass 181.896316718426012 g [employer] Work Phone: LV Diastolic Volume 101.00 mL [facility] [employer] Work Phone: LV ESV A2C 61.50 mL [employer] Work Phone: LV ESV A4C 81.70 mL [employer] Work Phone: LV RWT 2D 40.00 [employer] Work Phone: LV Systolic Volume 31.70 mL [facility] [employer] Work Phone: LVIDd 5.00 cm 7.85 - 10.91 cm [facility] [employer] Work Phone: LVIDs 3.10 cm 4.53 - 6.87 cm [employer] Work Phone: LVOT diameter 2.00 cm [employer] Work Phone: LVOT peak gerber 1.16 m/s [employer] Work Phone: LVOT peak VTI 25.40 cm [employer] Work Phone: LVOT stroke volume 79.80 ml [facility] [employer] Work Phone: MV Peak A Gerber 83.70 cm/s [facility] [employer] Work Phone: MV Peak E Gerber 136.00 cm/s [facility] [employer] Work Phone: MV pressure 1/2 time 68.00 ms [facility] [employer] Work Phone: MV TDI E' (medial) 4.68 cm/s [facility] [employer] Work Phone: MV valve area p 1/2 method 3.24 cm2 [facility] [employer] Work Phone: PW 1.00 cm 0.6 - 1.1 cm [employer] Work Phone: RA 2D Volume 16.8 mL/m2 [employer] Work Phone: RA area 15.3 cm2 [employer] Work Phone: RV diastolic dimension (basal) 39.0 mm [employer] Work Phone: RVID d 3.9 cm [employer] Work Phone: TAPSE 2.09 cm [employer] Work Phone: TASV 11.5 cm/s [facility] [employer] Work Phone: TDI 6.64 cm/s [employer] Work Phone: Valve area - Index 0.8 [facility] [employer] Work Phone: ZLVIDD -6.16 [facility] [employer] Work Phone: ZLVIDS -4.64 [employer] Work Phone: [facility] [employer] Work Phone: Cardiac echo study Procedure on [...] Mitral valve structure is normal. There is [id number] regurgitation with a centrally directed jet. There [...] is normal. [facility] Radiology Study observation (narrative) [facility] Clinical Pathologyon 024 Clinical Pathology Normal [facility] Comment on above: Result Comment: [facility] [address] [place] [address] Clinical Pathology Report Patient Name:DANIELLE MONTANA:1965 (Age: 58)Gender:FTaken:4Reported:4Physician(s):Alhaji Flores MD ([phone])Copy To: Rec. 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 No monoclonal protein identified. Report Electronically Signed Out 10/18/2023nicci Gomez MD Interpretation performed at [facility] [address] [place] [address], License number: [id number]. Clinical History D17.9, I16.0, E87.6. URINE PROTEIN ELECTROPHORESIS SAMPLE NUMBER: [id number] RELATIVE ELECTROPHORETIC CONCENTRATIONS (%) ? 100.0 Urine Protein 1410 mg/L (Electrophoretic gels and densitometric tracings on file in lab.) Specimen(s) Received Urine Protein Electrophoresis Fee Codes(s): 1; 86659-61 Comprehensive metabolic pane [facility] 10-16-2023 Albumin [Mass/Vol] 2.7 g/dL Low 3.2 - 5.3 g/dL [facility] ALP [Catalytic activity/Vol] 55 U/L 39 - 130 U/L [facility] ALT No additional P-5'-P [Catalytic activity/Vol] 9 U/L 0 - 31 U/L [facility] Anion gap [Moles/Vol] 8 mmol/L 5 - 15 mmol/L [facility] AST [Catalytic activity/Vol] 13 U/L 0 - 41 U/L [facility] Bilirubin [Mass/Vol] 0.4 mg/dL 0.3 - 1 .2 mg/dL [facility] Calcium [Mass/Vol] 8.4 mg/dL Low 8.5 - 10. 5 mg/dL [facility] Chloride [Moles/Vol] 101 mmol/L 98 - 10 9 mmol/L [facility] CO2 [Moles/Vol] 28 mmol/L 22 - 32 mmol/L [facility] Creatinine [Mass/Vol] 2.63 mg/dL High 0.40 - 1.00 mg/dL [facility] Comment on above: METHOD TRACEABLE TO [facility] STANDARD eGFR (CKD-EPI)non-race dependent 20 Low - PINF [facility] Comment on above: Reported eGFR is based on the CKD-EPI 2021 equation that does not use a race coefficient. Glucose [Mass/Vol] 107 mg/dL High 65 - 99 mg/dL [facility] Interpretation and review of laboratory results Abnormal [facility] Potassium [Moles/Vol] 3.2 mmol/L Low 3.5 - 5.0 mmol/L [facility] Protein [Mass/Vol] 5.4 g/dL Low 6.0 - 8.0 g/dL [facility] Sodium [Moles/Vol] 137 mmol/L 134 - 146 mmol/L [facility] Urea nitrogen [Mass/Vol] 23 mg/dL 5 - 23 mg/dL [facility] D-Dimeron 10-16-2023 Fibrin D-dimer DDU (PPP) [Mass/Vol] 499 High NINF [facility] Comment on above: Results >=255ng/mL DDU: Results [...] Interpretation and review of laboratory results Abnormal [facility] D DIMER 499 ng/mL DDU High <255 [facility] Comment on above: Result [...] D-Dimer level. Performed By: #### C VIRGILIO, [facility], 74832-3, 51212-7, 38816-0 #### [facility] ([id number]) [address] [place] [address], [place] [address] Free light chainson 10-16-19 Immunoglobulin light chains.kappa.free (S) [Mass/Vol] 3.52 mg/dL High 0.33 - 1.94 mg/dL [facility] Immunoglobulin light chains.kappa.free/Immuno globulin light chains.lambda (S) [Mass ratio] 0.94 0.26 - 1.65 [facility] Immunoglobulin light chains.lambda [Mass/Vol] 3.75 mg/dL High 0.57 - 2.63 mg/dL [facility] Interpretation and review of laboratory results Abnormal [facility] HGB A1C (GLYCO-HGB)on 2023 Glucose [Mass/Vol] 111 mg/dL Normal [facility] Comment on above: Performed By: #### MARIO Gale BCA, 27927-8, 16107-2, 35921-0 #### [facility] ([id number]) [address] [place] [address] 75501 HbA1c (Bld) [Mass fraction] 5.5 % Normal 4.4-5.6 [facility] Comment on above: Result Comment: NOTE ADA Guidelines Result HgbA1c Normal : less than 5.7 % Prediabetes : 5.7 % to 6.4 % Diabetes : > 6.4 % Use with caution in patients with abnormal hemoglobin variants as the half-life of red blood cells and in vivo glycation rates are affected. Performed By: #### MARIO Gale BCA, 86313-1, 98507-7, 48546-3 #### [facility] ([id number]) [address] [place] [address] 46068 Hemoglobin A1con 10-16-2023 Average glucose Estimated from glycated hemoglobin (Bld) [Mass/Vol] 111 mg/dL [facility] HbA1c (Bld) [Mass fraction] 5.5 % 4.4 - 5.6 % [facility] Comment on above: NOTE ADA Guidelines Result HgbA1c Normal : less than 5.7 % Prediabetes : 5.7 % to 6.4 % Diabetes : > 6.4 % Use with caution in patients with abnormal hemoglobin variants as the half-life of red blood cells and in vivo glycation rates are affected. [facility] MAGNESIUMon 10-16-2023 Magnesium [Mass/Vol] 2.1 mg/dL Normal 1.8-2.6 [facility] Comment on above: Performed By: #### C MARIO POOLE, , 53958-7, 60657-5 #### [facility] ([id number]) [address] [place] [address] 69780 MICROALBUMIN - ALBUMIN:CREAT ININE URINE RATIOon 10-16-2023 ALB/CREAT RATIO 3392.0 mg/g creat High 0.0-30.0 Pr [facility] Comment on above: Performed By: #### C MARIO POOLE, , 61902-2, 39625-5 #### [facility] ([id number]) [address] [place] [address] 77308 Albumin DL <= 20 mg/L (U) [Mass/Vol] 88.6 mg/dL High 0.0-1.9 [facility] Comment on above: Performed By: #### MARIO Gale BCA, , 66424-9, 64208-0 #### [facility] ([id number]) [address] [place] [address] 41409 URINE CREAT 26.12 mg/dL Normal [facility] Comment on above: Performed By: #### MARIO Gale BCA, , 05858-0, 00757-3 #### [facility] ([id number]) [address] [place] [address] 05251 Magnesiumon 10-16-2023 Magnesium [Mass/Vol] 2.1 mg/dL 1.8 - 2 .6 mg/dL [facility] Microalbumin - Albumin: Crea tinine Urine Ratioon 10-16-2023 Albumin DL <= 20 mg/L (U) [Mass/Vol] 88.6 mg/dL High 0.0 - 1.9 mg/dL [facility] Albumin/Creatinine DL <= 1.0 mg/L (U) [Ratio] 3392.0 High [facility] Creatinine (U) [Mass/Vol] 26.12 mg/dL [facility] Interpretation and review of laboratory results Abnormal [facility] No Panel Informationon 10-15 [facility] Nuclear Ab IA Ql (S)on 10-15 [facility] PHOSPHORUSon 10-16-2023 Phosphate [Mass/Vol] 4.3 mg/dL Normal 2.4-4.9 [facility] Comment on above: Performed By: #### C MARIO POOLE, 28690-6, 53344-2, 07663-2 #### [facility] ([id number]) [address] [place] [address] 88105 POCT Ionized Calciumon 10-15 Calcium.ionized (Bld) [Moles/Vol] 4.6 mg/dL 4.5 - 5.3 mg/dL [facility] POTASSIUMon 10-16-2023 Potassium [Moles/Vol] 4.8 mmol/L Normal 3.5-5.0 [facility] Comment on above: Result Comment: SPEC IMEN HEMOLYZED, RESULTS INCREASED Performed By: #### C MARIO POOLE, 74999-3, 13246-8, 69273-2 #### [facility] ([id number]) [address] [place] [address] 18762 PROTEIN CREAT RATIOon 2023 RANDOM URINE PROTEIN 1270 mg/L High <120 [facility] Comment on above: Performed By: #### C MARIO POOLE, 99012-5, 20348-5, 34453-8 #### [facility] ([id number]) [address] [place] [address] 65257 U/PRO/AFTER SCHOOL COORDINATOR RATIO CALC 4.72 High <0.2 [facility] Comment on above: Result Comment: Neph rotic Syndrome is associated with ratios >3.5 Performed By: #### C BCA, BMP, 44060-7, 60759-7, 05419-0 #### [facility] ([id number]) [address] [place] [address] URINE CREATININE,RDM 26.92 mg/dL Normal [facility] Comment on above: Performed By: #### C BCA, BMP, 36419-6, 27028-9, 38717-5 #### [facility] ([id number]) [address] [facility] [place] [address] Phosphate [Mass/Vol]on 10-15 [facility] Phosphoruson 10-16-2023 Phosphate [Mass/Vol] 4.3 mg/dL 2.4 - 4 .9 mg/dL [facility] Potassiumon 10-16-2023 Potassium [Moles/Vol] 4.8 mmol/L 3.5 - 5.0 mmol/L [facility] Comment on above: SPECIMEN HEMOLYZED, RESULTS INCREASED Potassium [Moles/Vol]on 09-23 [facility] Protein creat ratioon 2023 Creatinine (U) [Mass/Vol] 26.92 mg/dL [facility] Interpretation and review of laboratory results Abnormal [facility] Protein (U) [Mass/Vol] 1270 mg/L High NINF - 120 mg/L [facility] Protein/Creatinine (U) [Ratio] 4.72 High NINF - 0.2 [facility] Comment on above: Nephrotic Syndrome i s associated with ratios >3.5 [facility] Protein electrophoresis, ser umon 10-16-2023 Albumin [Mass/Vol] 2.5 g/dL Low 3.4 - 5.3 g/dL [facility] Alpha 1 globulin Elph [Mass/Vol] 0.4 g/dL 0.1 - 0.4 g/dL [facility] Alpha 2 globulin Elph [Mass/Vol] 0.9 g/dL 0.4 - 1.1 g/dL [facility] Beta globulin Elph [Mass/Vol] 0.5 g/dL 0.5 - 1.2 g/dL [facility] Gamma globulin Elph [Mass/Vol] 0.4 g/dL Low 0.5 - 1.6 g/dL [facility] Interpretation and review of laboratory results Abnormal [facility] Pathologist interpretation (Bld) [Interp] Unremarkable protein distribution, no monoclonal bands. [facility] Protein [Mass/Vol] 4.7 g/dL Low 6.0 - 8.0 g/dL [facility] URINALYSISon 10-16-2023 Bilirubin Ql (U) Negative Normal NEG [facility] Comment on above: Performed By: #### C VIRGILIO, BMP, 94878-6, 39676-3, 46616-8 #### [facility] ([id number]) [address] [place] [address] 47676 BLOOD/HGB Large Abnormal NEG [facility] Comment on above: Performed By: #### Shahla POOLE, BMP, 34925-3, 30400-8, 32074-9 #### [facility] ([id number]) [address] [place] [address] 24165 Color (U) YELLOW Normal YELLOW [facility] Comment on above: Performed By: #### Shahla BCA, BMP, 12532-2, 44985-4, 69702-9 #### [facility] ([id number]) [address] [place] [address] 64824 Glucose Ql (U) Negative Normal NEG [facility] Comment on above: Performed By: #### Shahla BCA, BMP, 94304-2, 04331-4, 90491-4 #### [facility] ([id number]) [address] [place] [address] 26513 Ketones Ql (U) Negative Normal NEG [facility] Comment on above: Performed By: #### Shahla BCA, BMP, 19254-4, 43162-4, 13124-6 #### [facility] ([id number]) [address] [place] [address] Leukocyte esterase Test strip Ql (U) Negative Normal NEG [facility] Comment on above: Performed By: #### C VIRGILIO, BMP, 76164-9, 59452-0, 87372-4 #### [facility] ([id number]) [address] [place] [address] 73042 Nitrite Ql (U) Negative Normal NEG [facility] Comment on above: Performed By: #### C VIRGILIO, BMP, 87455-3, 89203-0, 21617-2 #### [facility] ([id number]) [address] [place] [address] 63043 pH (U) 6.0 [pH] Normal 5.0-8.5 [facility] Comment on above: Performed By: #### C VIRGILIO, BMP, 79903-6, 24996-4, 07497-5 #### [facility] ([id number]) [address] [place] [address] 79602 Protein Ql (U) 100 mg/dL Abnormal NEG [facility] Comment on above: Performed By: #### C VIRGILIO, BMP, 13090-5, 55643-6, 31543-0 #### [facility] ([id number]) [address] [place] [address] 76144 R.B.CELLS 80 /hpf High 0-5 [facility] Comment on above: Performed By: #### C VIRGILIO, BMP, 57478-7, 75633-0, 82292-6 #### [facility] ([id number]) [address] [place] [address] 87965 Specific gravity (U) [Rel density] 1.015 Normal 1.003-1.[address] [place] [address] Comment on above: Performed By: #### C VIRGILIO, BMP, 42707-4, 07162-2, 91462-0 #### [facility] ([id number]) [address] [place] [address] 08684 SQUAMOUS EPITHELIUM 2 /hpf Normal 0-5 [facility] Comment on above: Performed By: #### C VIRGILIO, MARIO, , 84284-8, 64826-7 #### [facility] ([id number]) [address] [place] [address] 56130 TURBIDITY CLEAR Normal CLEAR [facility] Comment on above: Performed By: #### C VIRGILIO, BMP, , 95251-8, 22814-1 #### [facility] ([id number]) [address] [place] [address] 97359 Urobilinogen Qn (U) 0.2 {Micaela'U}/dL Normal <1.1 [facility] Comment on above: Performed By: #### C VIRGILIO, MARIO, , 30028-0, 72908-9 #### [facility] ([id number]) [address] [place] [address] 53021 W.B.CELLS 5 /hpf Normal 0-5 [facility] Comment on above: Performed By: #### C MARIO POOLE, , 37617-2, 41943-9 #### [facility] ([id number]) [address] [place] [address] 16420 URINE PROTEIN ELECTROPHORESI Son 10-16-2023 UPREL INTERP SEE SEPARATE REPORT Normal [facility] URINE VOLUME AND TIMEon 09-23 TIME 24 h Normal [facility] Comment on above: Performed By: #### U CR, UPRO ####[facility] ([id number])0 [facility] [address], [place] [address] TOTAL VOLUME 4400 mL Normal [facility] Comment on above: Performed By: #### U CR, UPRO ####[facility] ([id number]) [facility], [address] [place] [address] 09399 US RETROPERITONEAL COMPLETEo n 10-16-2023 US RETROPERITONEAL [...] Maksim Unger MD on 10/16/2023 9:42 AM [facility] US Retroperitoneumon 024 US RETROPERITONEAL COMPLETE: 10/16/2023 [...] Maksim Unger MD on 10/16/2023 9:[address] [facility] - 10/16/2023 US RETROPERITONEAL COMPLETE: 10/16/2023 [...] Maksim Unger MD on 10/16/2023 9:42 AM [facility] Radiology Study observation (narrative) [facility] US RetroperitoneumOrdered By : Maksim Unger on 10-16-2023 [facility] Work Phone: US.doppler Lower extremity v ein - bilateralon 10-16-2023 Radiology Study observation (narrative) [facility] Urinalysison 10-16-2023 Bilirubin Ql (U) Negative Negative^N egative [facility] Color (U) YELLOW YELLOW^YEL LOW [facility] Epithelial cells Auto (Urine sed) [#/Area] 2 [facility] Glucose (U) [Mass/Vol] Negative Negat marva^N egative mg/dL [facility] Hemoglobin Auto test strip Ql (U) Large Abnormal Negative^N egative [facility] Interpretation and review of laboratory results Abnormal [facility] Ketones (U) [Mass/Vol] Negative Negat marva^N egative mg/dL [facility] Leukocyte esterase Auto test strip Ql (U) Negative Negative^N egative [facility] Nitrite Auto test strip Ql (U) Negative Negative^N egative [facility] pH (U) 6.0 [pH] 5.0 - 8.5 [facility] Protein (U) [Mass/Vol] 100 mg/dL Abnormal Negat marva^N egative [facility] RBC Auto (Urine sed) [#/Area] 80 High [facility] Specific gravity Refractometry automated (U) [Rel density] 1.015 1.003 - 1.035 [facility] Turbidity Ql (U) CLEAR CLEAR^NUNU R [facility] Urobilinogen Qn (U) 0.2 NINF [facility] WBC Auto (Urine sed) [#/Area] 5 [facility] Basement membrane IgG Qn (S) on 10-15-2023 Glomerular Base Memb IgG <0.2 Normal <1. 0 (Negative) [facility] Comment on above: Result Comment: NOTE Test Performed by: [facility] [address] [place] [address] Mix Maker: Ledy Son Ph.D.; CLIA# [id number] Performed By: #### C VIRGILIO BMP, 54985-9, 12747-1, 53550-2 #### [facility] ([id number]) [address] [place] [address] 09312 CBC AND AUTO DIFFon 10-15-19 24 ABSOLUTE BASOPHIL 0.1 X10E9/L Normal 0.0-0.2 [facility] Comment on above: Performed By: #### C VIRGILIO CMP, #### [facility] ([id number]) [address] [place] [address] 13726 ABSOLUTE NEUTROPHIL 6.8 X10E9/L High 1.5-6.6 [facility] Comment on above: Performed By: #### C VIRGILIO CMP, 12964-1 #### [facility] ([id number]) [address] [place] [address] 10886 Basophils/100 WBC (Bld) 0.7 % Normal P [facility] Comment on above: Performed By: #### Shahla POOLE CMP, 98937-4 #### [facility] ([id number]) [address] [place] [address] 21727 Eosinophils (Bld) [#/Vol] 0.3 10*3/uL Normal 0.0-0.4 [facility] Comment on above: Performed By: #### Shahla POOLE CMP, 53891-0 #### [facility] ([id number]) [address] [place] [address] 31706 Eosinophils/100 WBC (Bld) 3.3 % Normal [facility] Comment on above: Performed By: #### Shahla POOLE CMP, 30982-2 #### [facility] ([id number]) [address] [place] [address] 27310 Erythrocyte distribution width (RBC) [Ratio] 14.6 % Normal 11.5-15.0 [facility] Comment on above: Performed By: #### Shahla POOLE CMP, #### [facility] ([id number]) [address] [place] [address] 88161 Hematocrit (Bld) [Volume fraction] 30.1 % Low 35-47 [facility] Comment on above: Performed By: #### Shahla POOLE CMP, #### [facility] ([id number]) [address] [place] [address] 97928 Hemoglobin (Bld) [Mass/Vol] 10.0 g/dL Low 11.7-15.5 [facility] Comment on above: Performed By: #### Shahla POOLE CMP, #### [facility] ([id number]) [address] [place] [address] 53221 Lymphocytes (Bld) [#/Vol] 2.4 10*3/uL Normal 1.0-3.5 [facility] Comment on above: Performed By: #### Shahla POOLE CMP, #### [facility] ([id number]) [address] [place] [address] 98531 Lymphocytes/100 WBC (Bld) 23.7 % Normal [facility] Comment on above: Performed By: #### Shahla POOLE CMP, #### [facility] ([id number]) [address] [place] [address] 21010 MCH (RBC) [Entitic mass] 27.7 pg Normal 27-34 [facility] Comment on above: Performed By: #### Shahla POOLE CMP, #### [facility] ([id number]) [address] [place] [address] 77572 MCHC (RBC) [Mass/Vol] 33.1 g/dL Normal 32-36 [facility] Comment on above: Performed By: #### Shahla POOLE CMP, #### [facility] ([id number]) [address] [place] [address] 38833 MCV (RBC) [Entitic vol] 84 fL Normal 80-100 [facility] Comment on above: Performed By: #### Shahla POOLE CMP, #### [facility] ([id number]) [address] [place] [address] 61808 Monocytes (Bld) [#/Vol] 0.6 10*3/uL Normal 0-0.9 [facility] Comment on above: Performed By: #### Shahla POOLE CMP, #### [facility] ([id number]) [address] [place] [address] 64620 Monocytes/100 WBC (Bld) 5.5 % Normal [facility] Comment on above: Performed By: #### Shahla POOLE CMP, 14937-0 #### [facility] ([id number]) [address] [place] [address] 70059 Neutrophils/100 WBC (Bld) 66.8 % Normal [facility] Comment on above: Performed By: #### Shahla POOLE CMP, 54484-6 #### [facility] ([id number]) [address] [place] [address] 09187 Platelet mean volume (Bld) [Entitic vol] 9.0 fL Normal 7-12 [facility] Comment on above: Performed By: #### Shahla POOLE [facility], 06416-6 #### [facility] ([id number]) [address] [place] [address] 59599 Platelets (Bld) [#/Vol] 312 10*3/uL Normal 150-450 [facility] Comment on above: Performed By: #### Shahla POOLE [facility], 50245-8 #### [facility] ([id number]) [address] [place] [address] 01552 RBC COUNT 3.59 X10E12/L Low 3.80-5.20 [facility] Comment on above: Performed By: #### Shahla POOLE [facility], 91566-6 #### [facility] ([id number]) [address] [place] [address] 23228 WBC (Bld) [#/Vol] 10.2 10*3/uL Normal 4.0-11.0 [facility] Comment on above: Performed By: #### Shahla POOLE CMP, 61143-7 #### [facility] ([id number]) [address] [place] [address] 43708 CBC auto differentialon 09-23 Basophils (Bld) [#/Vol] 0.1 10*3/uL [facility] Basophils/100 WBC (Bld) 0.7 % [facility] Eosinophils (Bld) [#/Vol] 0.3 10*3/uL [facility] Eosinophils/100 WBC (Bld) 3.3 % [facility] Erythrocyte distribution width (RBC) [Ratio] 14.6 % 11.5 - 15.0 % [facility] Hematocrit (Bld) [Volume fraction] 30.1 % Low 35 - 47 % [facility] Hemoglobin (Bld) [Mass/Vol] 10.0 g/dL Low 11.7 - 15.5 g/dL [facility] Interpretation and review of laboratory results Abnormal [facility] Lymphocytes (Bld) [#/Vol] 2.4 10*3/uL [facility] Lymphocytes/100 WBC (Bld) 23.7 % [facility] MCH (RBC) [Entitic mass] 27.7 pg 27 - 34 pg [facility] MCHC (RBC) [Mass/Vol] 33.1 g/dL 32 - 3 6 g/dL [facility] MCV (RBC) [Entitic vol] 84 fL 80 - 100 fL [facility] Monocytes (Bld) [#/Vol] 0.6 10*3/uL [facility] Monocytes/100 WBC (Bld) 5.5 % P [facility] Neutrophils (Bld) [#/Vol] 6.8 10*3/uL High [facility] Neutrophils/100 WBC (Bld) 66.8 % [facility] Platelet mean volume (Bld) [Entitic vol] 9.0 fL 7 - 12 fL [facility] Platelets (Bld) [#/Vol] 312 10*3/uL [facility] RBC (Bld) [#/Vol] 3.59 10*6/uL Low [facility] WBC corrected for nucl RBC Auto (Bld) [#/Vol] 10.2 [facility] CK Totalon 10-15-2023 CK [Catalytic activity/Vol] 82 U/L 24 - 170 U/L [facility] CK [Catalytic activity/Vol]o n 10-15-2023 [facility] CPK 82 U/L Normal 24-170 [facility] Comment on above: Performed By: #### C VIRGILIO, MARIO, 64351-6, 81354-4, 34796-2 #### [facility] ([id number]) [address] [place] [address], [place] [address] COMPLEMENT PROFILEon 024 COMPLEMENT C3 113 mg/dL Normal 86-184 [facility] Comment on above: Performed By: #### C BCA, BMP, 28389-4, 68785-9, 19542-4 #### [facility] ([id number]) [address] [place] [address] 22160 COMPLEMENT C4 36 mg/dL Normal 16-47 [facility] Comment on above: Performed By: #### C BCA, BMP, , 31508-0, 24581-4 #### [facility] ([id number]) [address] [place] [address] 58470 COMPREHENSIVE METABOLIC PANE Phu 10-15-2023 Albumin [Mass/Vol] 2.8 g/dL Low 3.2-5.3 [facility] Comment on above: Performed By: #### C BCA, CMP, #### [facility] ([id number]) [address] [place] [address] 37958 ALP [Catalytic activity/Vol] 61 U/L Normal 39-130 [facility] Comment on above: Performed By: #### C BCA, CMP, 84834-9 #### [facility] ([id number]) [address] [place] [address] 00181 ALT [Catalytic activity/Vol] 10 U/L Normal 0-31 [facility] Comment on above: Performed By: #### C BCA, CMP, 11838-2 #### [facility] ([id number]) [address] [place] [address] 47676 Anion gap [Moles/Vol] 10 mmol/L Normal 5-15 [facility] Comment on above: Performed By: #### C BCA, CMP, 63825-3 #### [facility] ([id number]) [address] [place] [address] 05101 AST [Catalytic activity/Vol] 14 U/L Normal 0-41 [facility] Comment on above: Performed By: #### C VIRGILIO CMP, 33199-6 #### [facility] ([id number]) [address] [place] [address] 19777 Bilirubin [Mass/Vol] 0.4 mg/dL Normal 0.3-1.2 [facility] Comment on above: Performed By: #### C VIRGILIO, CMP, #### [facility] ([id number]) [address] [place] [address] 17707 Calcium [Mass/Vol] 8.4 mg/dL Low 8.5-10.5 [facility] Comment on above: Performed By: #### C VIRGILIO, [facility], 31659-5 #### [facility] ([id number]) [address] [place] [address] 92680 Chloride [Moles/Vol] 104 mmol/L Normal 98-109 [facility] Comment on above: Performed By: #### Shahla POOLE [facility], 43379-9 #### [facility] ([id number]) [address] [place] [address] 41843 CO2 [Moles/Vol] 26 mmol/L Normal 22-32 [facility] Comment on above: Performed By: #### Shahla POOLE [facility], 47673-2 #### [facility] ([id number]) [address] [place] [address] 63964 Creatinine [Mass/Vol] 2.56 mg/dL High 0.40-1.00 [facility] Comment on above: Result Comment: METH OD TRACEABLE TO IDMS STANDARD Performed By: #### C VIRGILIO, CMP, 52171-7 #### [facility] ([id number]) [address] [place] [address] 80870 GFR/1.73 sq M.predicted among non-blacks MDRD (S/P/Bld) [Vol rate/Area] 21 mL/min/{1.73_m2} Low >59 [facility] Comment on above: Result Comment: Reported eGFR is based on the CKD-EPI 2020 equation that does not use a race coefficient. Performed By: #### C EDEL POOLE, 48789-1 #### [facility] ([id number]) [address] [place] [address] 86153 Glucose [Mass/Vol] 103 mg/dL High 65-99 [facility] Comment on above: Performed By: #### C EDEL POOLE, 68518-5 #### [facility] ([id number]) [address] [place] [address] 87470 Potassium [Moles/Vol] 3.2 mmol/L Low 3.5-5.0 [facility] Comment on above: Performed By: #### C EDEL POOLE, #### [facility] ([id number]) [address] [place] [address] 34710 Protein [Mass/Vol] 5.6 g/dL Low 6.0-8.0 [facility] Comment on above: Performed By: #### C VIRGILIO [facility], 88230-8 #### [facility] ([id number]) [address] [place] [address] 87945 Sodium [Moles/Vol] 140 mmol/L Normal 134-146 [facility] Comment on above: Performed By: #### C VIRGILIO [facility], 01561-8 #### [facility] ([id number]) [address] [place] [address] 83704 Urea nitrogen [Mass/Vol] 20 mg/dL Normal 5-23 [facility] Comment on above: Performed By: #### C EDEL POOLE, 61356-0 #### [facility] ([id number]) [address] [place] [address] 45452 CRYOGLOBULIN WITH IDon 10-14 CRYOGLOBULIN, QUAL NEG 72HOUR Normal NEG 72Hour [facility] Comment on above: Result Comment: NOTE This test was developed and its performance characteristics determined by [facility]. It has not been cleared or approved by the [place] Food and Drug Administration. This test was performed in a CLIA certified laboratory and is intended for clinical purposes. Performed By: [facility] [address] [place] [address] 99678 Field Mechanic: Hank Armstrong MD, PhD CLIA Number: [id number] Performed By: #### 8 9579-7 #### [facility] ([id number]) [address] [place] [address], [place] [address] Cobalamin (Vitamin B12) [Mas s/Vol]on 10-15-2023 Interpretation and review of laboratory results Abnormal [facility] Complement profile (C3 AND C 4)on 10-15-2023 Complement C3 [Mass/Vol] 113 mg/dL 86 - 184 mg/dL [facility] Complement C4 [Mass/Vol] 36 mg/dL 16 - 47 mg/dL [facility] Comprehensive metabolic pane phu 10-15-2023 Albumin [Mass/Vol] 2.8 g/dL Low 3.2 - 5.3 g/dL [facility] ALP [Catalytic activity/Vol] 61 U/L 39 - 130 U/L [facility] ALT No additional P-5'-P [Catalytic activity/Vol] 10 U/L 0 - 31 U/L [facility] [place] [facility] Anion gap [Moles/Vol] 10 mmol/L 5 - 15 mmol/L [facility] AST [Catalytic activity/Vol] 14 U/L 0 - 41 U/L [facility] Bilirubin [Mass/Vol] 0.4 mg/dL 0.3 - 1 .2 mg/dL [facility] Calcium [Mass/Vol] 8.4 mg/dL Low 8.5 - 10. 5 mg/dL [facility] Chloride [Moles/Vol] 104 mmol/L 98 - 10 9 mmol/L [facility] CO2 [Moles/Vol] 26 mmol/L 22 - 32 mmol/L [facility] Creatinine [Mass/Vol] 2.56 mg/dL High 0.40 - 1.00 mg/dL [facility] Comment on above: METHOD TRACEABLE TO [facility] STANDARD eGFR (CKD-EPI)non-race dependent 21 Low - PINF [facility] Comment on above: Reported eGFR is based on the CKD-EPI 2020 equation that does not use a race coefficient. Glucose [Mass/Vol] 103 mg/dL High 65 - 99 mg/dL [facility] Potassium [Moles/Vol] 3.2 mmol/L Low 3.5 - 5.0 mmol/L [facility] Protein [Mass/Vol] 5.6 g/dL Low 6.0 - 8.0 g/dL [facility] Sodium [Moles/Vol] 140 mmol/L 134 - 146 mmol/L [facility] Urea nitrogen [Mass/Vol] 20 mg/dL 5 - 23 mg/dL [facility] Creatinine (U) [Mass/Vol]on 10-15-2023 [facility] URINE CREATININE,RDM 102.61 mg/dL Normal Pr [facility] Comment on above: Performed By: #### C MARIO POOLE, , 82766-8, 10233-8 #### [facility] ([id number]) [address] [place] [address] 73161 FERRITINon 10-15-2023 Ferritin [Mass/Vol] 45 ng/mL Normal 11-307 [facility] Comment on above: Performed By: #### C MARIO POOLE, 00942-3, 12154-8, 30062-3 #### [facility] ([id number]) [address] [place] [address] 96370 FREE LIGHT CHAINSon 10-15-19 24 FREE ANDREA/LAMBD RATIO 0.94 Normal 0.26-1.65 [facility] Comment on above: Performed By: #### C MARIO POOLE, , 73055-5, 85966-5 #### [facility] ([id number]) [address] [place] [address] 12250 FREE KAPPA LT CHAINS 3.52 mg/dL High 0.33-1.94 [facility] Comment on above: Performed By: #### C MARIO POOLE, , 36610-1, 04012-1 #### [facility] ([id number]) [address] [place] [address] 25982 FREE LAMBDA LT CHAINS 3.75 mg/dL High 0.57-2.63 [facility] Comment on above: Performed By: #### C MARIO POOLE, , 24821-9, 31131-7 #### [facility] ([id number]) [address] [place] [address] 81002 Ferritinon 10-15-2023 Ferritin [Mass/Vol] 45 ng/mL 11 - 307 ng/mL [facility] Ferritin [Mass/Vol]on 2023 [facility] Folateon 10-15-2023 Folate [Mass/Vol] 10.3 ng/mL 5.8 - PINF ng/mL [facility] Comment on above: NEW REFERENCE RANGE Folate [Mass/Vol]on 10-15-19 24 [facility] FOLIC ACID 10.3 ng/mL Normal >5.8 [facility] Comment on above: Result Comment: NEW REFERENCE RANGE Performed By: #### C MARIO POOLE, , 74715-7, 03142-4 #### [facility] ([id number]) [address] [place] [address] 06689 HBV surface Ab IA Qnon 10-14 Anti HBs quant. <8.00 Normal [facility] Comment on above: Result Comment: Vacc inated: >=12mIU/mL, Positive (Immune) Unvaccinated: <8mIU/mL, Negative (Not Immune) 8-11.99 mIU/mL: Indeterminate, (Considered Not Immune) Performed By: #### C MARIO POOLE, , 03141-5, 06196-1 #### [facility] ([id number]) [address] [place] [address] 16750 HBV surface Ag IA Qlon 10-14 HEPATITIS B SURF AG Negative Normal [facility]G [facility] Comment on above: Performed By: #### C MARIO POOLE, 43828-2, 89716-4, 97422-1 #### [facility] ([id number]) [address] [place] [address] HCV Ab IA Qlon 10-15-2023 ANTI HCV W/PCR REFLX Non-Reactive Normal NRCT Pr [facility] Comment on above: Result Comment: If recent infection suspected, recommend repeat testing (>2 months). Hlatuc-ej-smxbaf ratio is <0.80. Performed By: #### C VIRGILIO, MARIO, 12170-7, 33400-3, 53711-7 #### [facility] ([id number]) [address] [place] [address] HIV 1&2 AB/AG Screen (P24 AG )on 10-15-2023 HIV 1+2 Ab+HIV1 p24 Ag IA Ql Non-Reactive Non-Reacti ve^Non-Vesna ctive [facility] Comment on above: This information has been [...] and 2 Ab/Ag Screen Non-Reactive Normal NRCT [facility] Comment on above: Result [...] Performed By: #### C MARIO POOLE, , 05298-1, 55290-4 #### [facility] ([id number]) [address] [place] [address] 07310 Hepatitis B Surface Antibody Quantitationon 10-15-2023 HBV surface Ab IA Qn mIU/mL [facility] Comment on above: Vaccinated: >=12mIU/ mL, Positive (Immune) Unvaccinated: <8mIU/mL, Negative (Not Immune) 8-11.99 mIU/mL: Indeterminate, (Considered Not Immune) Hepatitis B surface antigeno n 10-15-2023 HBV surface Ag IA Ql Negative Negativ e^N egative [facility] Hepatitis C(HCV) Ab w/ Refle x to PCRon 10-15-2023 HCV Ab IA Ql Non-Reactive Non-Reacti ve^Non-Vesna ctive [facility] Comment on above: If recent infection suspected, recommend repeat testing (>2 months). Oqnjkt-ii-tvumiy ratio is <0.80. IRON PROFILEon 10-15-2023 Iron [Mass/Vol] 30 ug/dL Low 50-170 [facility] Comment on above: Performed By: #### C MARIO POOLE, , 80455-8, 54114-2 #### [facility] ([id number]) [address] [place] [address] 28820 IRON BINDING 218 ug/dL Low 250-425 [facility] Comment on above: Performed By: #### C MARIO POOLE, , 89613-4, 60378-4 #### [facility] ([id number]) [address] [place] [address] 71383 IRON SATURATION 14 % SATURATION Low 15-50 [facility] Comment on above: Performed By: #### C MARIO POOLE, 28752-2, 18560-4, 41703-0 #### [facility] ([id number]) [address] [place] [address] 86319 Iron and TIBCon 10-15-2023 Interpretation and review of laboratory results Abnormal [facility] Iron [Mass/Vol] 30 ug/dL Low 50 - 170 ug/dL [facility] [facility] Iron binding capacity [Mass/Vol] 218 ug/dL Low 250 - 425 ug/dL [facility] Iron saturation [Mass fraction] 14 Low [facility] MAGNESIUMon 10-15-2023 Magnesium [Mass/Vol] 1.7 mg/dL Low 1.8-2.6 [facility] Comment on above: Performed By: #### C VIRGILIO, CMP, 91880-8 #### [facility] ([id number]) [address] [place] [address] 61414 Magnesiumon 10-15-2023 Magnesium [Mass/Vol] 1.7 mg/dL Low 1.8 - 2 .6 mg/dL [facility] Myeloperoxidase IgG Qn (S)on 10-15-2023 Myeloperoxidase IgG >8.0 High <0.4 (Negative) [facility] Comment on above: Result Comment: NOTE Interpretation: Positive (>=1.0) Test Performed by: [place] [address] Mix Maker: Ledy Son Ph.D.; CLIA# [id number] Performed By: #### C VIRGILIO, BMP, 72584-2, 88041-3, 16596-5 #### [facility] ([id number]) [address] [place] [address] 89994 No Panel Informationon 10-14 [facility] Interpretation and review of laboratory results Abnormal [facility] Nuclear Ab IA Ql (S)on 10-14 SAUL Screen w/reflex Negative Normal NEG [facility] Comment on above: Result Comment: Testing performed using multiplex flow immunoassay. Eleven different antigens associated with systemic autoimmune diseases (dsDNA,Sm,Sm/STUDENT DEVELOPMENT DEAN,STUDENT DEVELOPMENT DEAN,Chromatin, SSA,SSB,Yoly-1,Scl70,Ribo P,Centromere B) are included in this screening test. Performed By: #### C MARIO POOLE, 81600-6, 42347-8, 32458-7 #### [facility] ([id number]) [address] [place] [address] 03290 POTASSIUMon 10-15-2023 Potassium [Moles/Vol] 3.5 mmol/L Normal 3.5-5.0 [facility] Comment on above: Performed By: #### C MARIO POOLE, 63953-7, 29256-7, 59567-0 #### [facility] ([id number]) [address] [place] [address] 46975 Potassiumon 10-15-2023 Potassium [Moles/Vol] 3.5 mmol/L 3.5 - 5.0 mmol/L [facility] Potassium [Moles/Vol]on 09-23 [facility] Proteinase 3 IgG IA Qnon Proteinase 3 IgG 0.2 U Normal <0.4 (Negative) [facility] Comment on above: Result Comment: NOTE Test Performed by: [facility] [address] [place] [address] Mix Maker: Ledy Son Ph.D.; CLIA# [id number] Performed By: #### C MARIO POOLE, 64678-5, 54290-5, 38437-9 #### [facility] ([id number]) [address] [place] [address] 77991 Rheumatoid factoron 10-15-19 24 Rheumatoid factor Nephelometry Qn (S) 76 High NINF [facility] Rheumatoid factor Nephelomet ry Qn (S)on 10-15-2023 Interpretation and review of laboratory results Abnormal [facility] RHEUMATOID FACTOR 76 IU/mL High <[address] [facility] Comment on above: Performed By: #### C BCA, BMP, , 32689-0, 53708-8 #### [facility] ([id number]) [address] [place] [address] 17384 SERUM PROTEIN ELECTROPHORESI Son 10-15-2023 Albumin [Mass/Vol] 2.5 g/dL Low 3.4-5.3 [facility] Comment on above: Performed By: #### C BCA, BMP, , 68168-3, 24028-2 #### [facility] ([id number]) [address] [place] [address] 41051 ALPHA 1 GLOBULIN 0.4 g/dL Normal 0.1-0.4 [facility] Comment on above: Performed By: #### C BCA, BMP, , 46657-8, 02301-9 #### [facility] ([id number]) [address] [place] [address] 36295 ALPHA 2 GLOBULIN 0.9 g/dL Normal 0.4-1.1 [facility] Comment on above: Performed By: #### C BCA, BMP, , 18615-8, 11836-2 #### [facility] ([id number]) [address] [place] [address] 44034 BETA GLOBULIN 0.5 g/dL Normal 0.5-1.2 [facility] Comment on above: Performed By: #### C BCA, BMP, , 81527-5, 96420-8 #### [facility] ([id number]) [address] [place] [address] 59450 GAMMA GLOBULIN 0.4 g/dL Low 0.5-1.6 [facility] Comment on above: Performed By: #### C BCA, BMP, , 84636-3, 48113-9 #### [facility] ([id number]) [address] [place] [address] 14280 PROT. ELECTROPHORESIS INTERP Unremarkable protein distribution, no monoclonal bands. Normal [facility] Comment on above: Performed By: #### C MARIO POOLE, , 22227-6, 11454-6 #### [facility] ([id number]) [address] [facility], [place] [address] Protein [Mass/Vol] 4.7 g/dL Low 6.0-8.0 [facility] Comment on above: Performed By: #### C VIRGILIO, BMP, , 79675-3, 52524-9 #### [facility] ([id number]) [address] [place] [address], [place] [address] Sodium (U) [Moles/Vol]on [facility] Sodium, urine, randomon 09-23 Sodium (U) [Moles/Vol] 86 mmol/L Pr [facility] Troponin I, High Sensitivity 1 Houron 10-15-2023 Troponin I.cardiac High sensitivity method [Mass/Vol] 39 ng/L High NINF - 16 ng/L [facility] Comment on above: Elevations of hs-Troponin may be due to causes other than myocardial ischemia. Recommend serial hs-Troponin testing be performed. For the initial evaluation and management of chest pain patients, refer to the algorithms linked below. Emergency Patient: [email or web address] Inpatient: [email or web address] Troponin I.cardiac High sens itivity method [Mass/Vol]on 10-15-2023 Interpretation and review of laboratory results Abnormal [facility] URINALYSISon 10-15-2023 Bilirubin Ql (U) Negative Normal NEG [facility] Comment on above: Performed By: #### C VIRGILIO, BMP, , 63929-8, 46267-7 #### [facility] ([id number]) [address] [place] [address] [place] [address] BLOOD/HGB Large Abnormal NEG [facility] Comment on above: Performed By: #### C BCA, BMP, 34314-7, 80815-4, 97397-9 #### [facility] ([id number]) [address] [place] [address] [place] [address] Color (U) YELLOW Normal YELLOW [facility] Comment on above: Performed By: #### C BCA, BMP, 88206-3, 05294-2, 73894-9 #### [facility] ([id number]) [address] [place] [address] [place] [address] Glucose Ql (U) Negative Normal NEG [facility] Comment on above: Performed By: #### C BCA, BMP, 08191-1, 13105-9, 81224-2 #### [facility] ([id number]) [address] [place] [address] [place] [address] Ketones Ql (U) Negative Normal NEG [facility] Comment on above: Performed By: #### C BCA, BMP, 25356-0, 44152-6, 43043-3 #### [facility] ([id number]) [address] [place] [address] [place] [address] Leukocyte esterase Test strip Ql (U) Negative Normal NEG [facility] Comment on above: Performed By: #### C BCA, BMP, 92834-5, 35483-3, 01375-9 #### [facility] ([id number]) [address] [place] [address] 58876 Nitrite Ql (U) Negative Normal NEG [facility] Comment on above: Performed By: #### C BCA, BMP, 04126-9, 86469-3, 95825-8 #### [facility] ([id number]) [address] [place] [address], [place] [address] pH (U) 6.0 [pH] Normal 5.0-8.5 [facility] Comment on above: Performed By: #### C VIRGILIO, BMP, 25946-6, 07402-9, 30692-3 #### [facility] ([id number]) [address] [place] [address] 70544 Protein Ql (U) >300 Abnormal NEG [facility] Comment on above: Performed By: #### C VIRGILIO, BMP, 58208-6, 73801-2, 54591-2 #### [facility] ([id number]) [address] [place] [address] 21144 R.B.CELLS 30 /hpf High 0-5 [facility] Comment on above: Performed By: #### C VIRGILIO, BMP, 67813-1, 99414-0, 33372-9 #### [facility] ([id number]) [address] [place] [address] 93338 Specific gravity (U) [Rel density] 1.025 Normal 1.003-1.[address] [place] [address] Comment on above: Performed By: #### C VIRGILIO, BMP, 91965-7, 93254-8, 11724-0 #### [facility] ([id number]) [address] [place] [address] 53416 SQUAMOUS EPITHELIUM 6 /hpf High 0-5 [facility] Comment on above: Performed By: #### C VIRGILIO, BMP, 89079-7, 55882-0, 34173-9 #### [facility] ([id number]) [address] [place] [address] 38521 TURBIDITY CLEAR Normal CLEAR [facility] Comment on above: Performed By: #### C VIRGILIO, BMP, 48058-4, 91109-8, 98253-1 #### [facility] ([id number]) [address] [place] [address], [place] [address] Urobilinogen Qn (U) 0.2 {Micaela'U}/dL Normal <1.1 [facility] Comment on above: Performed By: #### C MARIO POOLE, 24026-4, 80878-3, 85720-1 #### [facility] ([id number]) [address] [place] [address] 31844 W.B.CELLS 10 /hpf High 0-5 [facility] Comment on above: Performed By: #### C VIRGILIO, MARIO, 23512-9, 49098-1, 80795-9 #### [facility] ([id number]) [address] [place] [address] 39399 URINE SODIUM,RANDOMon 2023 Sodium (U) [Moles/Vol] 86 mmol/L Normal [facility] Comment on above: Performed By: #### C VIRGILIO, MARIO, , 51913-3, 73782-7 #### [facility] ([id number]) [address] [place] [address] 21323 Urinalysison 10-15-2023 Bilirubin Ql (U) Negative Negative^N egative [facility] Color (U) YELLOW YELLOW^YEL LOW [facility] Epithelial cells Auto (Urine sed) [#/Area] 6 High [facility] Glucose (U) [Mass/Vol] Negative Negat marva^N egative mg/dL [facility] Hemoglobin Auto test strip Ql (U) Large Abnormal Negative^N egative [facility] Interpretation and review of laboratory results Abnormal [facility] Ketones (U) [Mass/Vol] Negative Negat marva^N egative mg/dL [facility] Leukocyte esterase Auto test strip Ql (U) Negative Negative^N egative [facility] Nitrite Auto test strip Ql (U) Negative Negative^N egative [facility] pH (U) 6.0 [pH] 5.0 - 8.5 [facility] Protein (U) [Mass/Vol] mg/dL Abnormal Negat marva^N egative mg/dL [facility] RBC Auto (Urine sed) [#/Area] 30 High [facility] Specific gravity Refractometry automated (U) [Rel density] 1.025 1.003 - 1.035 [facility] Turbidity Ql (U) CLEAR CLEAR^NUNU R [facility] Urobilinogen Qn (U) 0.2 NINF [facility] WBC Auto (Urine sed) [#/Area] 10 High [facility] Urine Creatinine,randomon Creatinine (U) [Mass/Vol] 102.61 mg/dL [facility] VITAMIN B12on 10-15-2023 Cobalamin (Vitamin B12) [Mass/Vol] 159 pg/mL Low 180-914 [facility] Comment on above: Performed By: #### C VIRGILIO BMP, 05514-3, 95088-1, 28427-9 #### [facility] ([id number]) [address] [place] [address] 93936 Vitamin B12on 10-15-2023 Cobalamin (Vitamin B12) [Mass/Vol] 159 pg/mL Low 180 - 914 pg/mL [facility] BASIC METABOLIC PANLon 10-13 Anion gap [Moles/Vol] 5 mmol/L Normal 5-15 [facility] Comment on above: Performed By: #### C VIRGILIO BMP, , 46686-3, 85335-3 #### [facility] ([id number]) [address] [place] [address] 91938 Calcium [Mass/Vol] 8.1 mg/dL Low 8.5-10.5 [facility] Comment on above: Performed By: #### C BCA BMP, , 05248-0, 08343-3 #### [facility] ([id number]) [address] [place] [address] 35277 Chloride [Moles/Vol] 107 mmol/L Normal 98-109 [facility] Comment on above: Performed By: #### C VIRGILIO, BMP, , 44936-1, 62224-0 #### [facility] ([id number]) [address] [place] [address] 66938 CO2 [Moles/Vol] 27 mmol/L Normal 22-32 [facility] Comment on above: Performed By: #### C BCA, BMP, , 71572-8, 90359-2 #### [facility] ([id number]) [address] [place] [address] 00832 Creatinine [Mass/Vol] 2.56 mg/dL High 0.40-1.00 [facility] Comment on above: Result Comment: METH OD TRACEABLE TO IDMS STANDARD Performed By: #### C VIRGILIO, BMP, , 52338-6, 83995-2 #### [facility] ([id number]) [address] [place] [address] 51425 GFR/1.73 sq M.predicted among non-blacks MDRD (S/P/Bld) [Vol rate/Area] 21 mL/min/{1.73_m2} Low >59 [facility] Comment on above: Result Comment: Reported eGFR is based on the CKD-EPI 2020 equation that does not use a race coefficient. Performed By: #### C VIRGILIO, BMP, , 53865-5, 69811-2 #### [facility] ([id number]) [address] [place] [address] 44763 Glucose [Mass/Vol] 95 mg/dL Normal 65-99 [facility] Comment on above: Performed By: #### C BCA, BMP, , 52994-6, 80789-1 #### [facility] ([id number]) [address] [place] [address] 07950 Potassium [Moles/Vol] 3.1 mmol/L Low 3.5-5.0 [facility] Comment on above: Performed By: #### C BCA, BMP, 85150-3, 10353-5, 33940-0 #### [facility] ([id number]) [address] [place] [address] 56146 Sodium [Moles/Vol] 139 mmol/L Normal 134-146 [facility] Comment on above: Performed By: #### C BCA, BMP, 23358-8, 45958-8, 98917-8 #### [facility] ([id number]) [address] [place] [address] 96815 Urea nitrogen [Mass/Vol] 19 mg/dL Normal 5-23 [facility] Comment on above: Performed By: #### C BCA, BMP, 68285-2, 46854-0, 70504-0 #### [facility] ([id number]) [address] [place] [address] 71513 Basic Metabolic Panelon - Anion gap [Moles/Vol] 5 mmol/L 5 - 15 mmol/L [facility] Calcium [Mass/Vol] 8.1 mg/dL Low 8.5 - 10. 5 mg/dL [facility] Chloride [Moles/Vol] 107 mmol/L 98 - 10 9 mmol/L [facility] CO2 [Moles/Vol] 27 mmol/L 22 - 32 mmol/L [facility] Creatinine [Mass/Vol] 2.56 mg/dL High 0.40 - 1.00 mg/dL [facility] Comment on above: METHOD TRACEABLE TO IDMS STANDARD eGFR (CKD-EPI)non-race dependent 21 Low - PINF [facility] Comment on above: Reported eGFR is based on the CKD-EPI 2020 equation that does not use a race coefficient. Glucose [Mass/Vol] 95 mg/dL 65 - 99 mg/dL [facility] Interpretation and review of laboratory results Abnormal [facility] Potassium [Moles/Vol] 3.1 mmol/L Low 3.5 - 5.0 mmol/L [facility] Sodium [Moles/Vol] 139 mmol/L 134 - 146 mmol/L [facility] Urea nitrogen [Mass/Vol] 19 mg/dL 5 - 23 mg/dL [facility] CBC AND AUTO DIFFon 10-14-19 24 ABSOLUTE BASOPHIL 0.1 X10E9/L Normal 0.0-0.2 [facility] Comment on above: Performed By: #### C VIRGILIO, BMP, , 95629-9, 61907-5 #### [facility] ([id number]) [address] [place] [address] 08269 ABSOLUTE NEUTROPHIL 5.7 X10E9/L Normal 1.5-6.6 [facility] Comment on above: Performed By: #### hSahla POOLE, BMP, , 53897-9, 69892-6 #### [facility] ([id number]) [address] [place] [address] 92164 Basophils/100 WBC (Bld) 0.7 % Normal [facility] Comment on above: Performed By: #### C VIRGILIO, BMP, , 70851-8, 60427-3 #### [facility] ([id number]) [address] [place] [address] 48512 Eosinophils (Bld) [#/Vol] 0.5 10*3/uL High 0.0-0.4 [facility] Comment on above: Performed By: #### Shahla POOLE, BMP, , 80614-8, 55438-0 #### [facility] ([id number]) [address] [place] [address] 66026 Eosinophils/100 WBC (Bld) 4.9 % Normal [facility] Comment on above: Performed By: #### Shahla BCA, BMP, , 13288-4, 74478-4 #### [facility] ([id number]) [address] [place] [address] 66254 Erythrocyte distribution width (RBC) [Ratio] 14.6 % Normal 11.5-15.0 [facility] Comment on above: Performed By: #### C VIRGILIO, BMP, 41710-0, 75013-7, 09491-7 #### [facility] ([id number]) [address] [place] [address] 67514 Hematocrit (Bld) [Volume fraction] 33.2 % Low 35-47 [facility] Comment on above: Performed By: #### C BCA, BMP, 40072-0, 46548-4, 66048-2 #### [facility] ([id number]) [address] [place] [address] 69919 Hemoglobin (Bld) [Mass/Vol] 10.9 g/dL Low 11.7-15.5 [facility] Comment on above: Performed By: #### Shahla POOLE, BMP, , 27204-5, 00067-2 #### [facility] ([id number]) [address] [place] [address] 84067 Lymphocytes (Bld) [#/Vol] 2.8 10*3/uL Normal 1.0-3.5 [facility] Comment on above: Performed By: #### C BCA, BMP, , 92763-4, 73795-9 #### [facility] ([id number]) [address] [place] [address] 42849 Lymphocytes/100 WBC (Bld) 28.7 % Normal [facility] Comment on above: Performed By: #### C BCA, BMP, 96035-7, 68297-2, 20419-2 #### [facility] ([id number]) [address] [place] [address] 12953 MCH (RBC) [Entitic mass] 27.7 pg Normal 27-34 [facility] Comment on above: Performed By: #### C BCA, BMP, 86235-2, 82587-9, 82581-2 #### [facility] ([id number]) [address] [place] [address] 55933 MCHC (RBC) [Mass/Vol] 32.9 g/dL Normal 32-36 [facility] Comment on above: Performed By: #### Shahla POOLE, MARIO, , 60711-4, 50140-7 #### [facility] ([id number]) [address] [place] [address] 42421 MCV (RBC) [Entitic vol] 84 fL Normal 80-100 [facility] Comment on above: Performed By: #### Shahla POOLE, MARIO, , 96831-4, 77523-0 #### [facility] ([id number]) [address] [place] [address] 35928 Monocytes (Bld) [#/Vol] 0.8 10*3/uL Normal 0-0.9 [facility] Comment on above: Performed By: #### Shahla POOLE, MARIO, , 19931-8, 07087-6 #### [facility] ([id number]) [address] [place] [address] 61514 Monocytes/100 WBC (Bld) 8.1 % Normal [facility] Comment on above: Performed By: #### Shahla POOLE, BMP, , 08598-9, 49693-4 #### [facility] ([id number]) [address] [place] [address] 93010 Neutrophils/100 WBC (Bld) 57.6 % Normal [facility] Comment on above: Performed By: #### Shahla POOLE, BMP, , 40015-0, 25722-0 #### [facility] ([id number]) [address] [place] [address] 04203 Platelet mean volume (Bld) [Entitic vol] 8.9 fL Normal 7-12 [facility] Comment on above: Performed By: #### Shahla POOLE, MARIO, 08948-8, 37080-4, 81786-0 #### [facility] ([id number]) [address] [place] [address] 07645 Platelets (Bld) [#/Vol] 319 10*3/uL Normal 150-450 [facility] Comment on above: Performed By: #### Shahla POOLE, MARIO, , 36859-6, 56179-9 #### [facility] ([id number]) [address] [place] [address] 06961 RBC COUNT 3.95 X10E12/L Normal 3.80-5.20 [facility] Comment on above: Performed By: #### Shahla POOLE, MARIO, , 22776-9, 73130-2 #### [facility] ([id number]) [address] [place] [address] 30990 WBC (Bld) [#/Vol] 9.9 10*3/uL Normal 4.0-11.0 [facility] Comment on above: Performed By: #### Shahla POOLE, MARIO, , 98188-5, 27186-9 #### [facility] ([id number]) [address] [place] [address] 85890 CBC auto differentialon 09-23 Basophils (Bld) [#/Vol] 0.1 10*3/uL [facility] Basophils/100 WBC (Bld) 0.7 % P [facility] Eosinophils (Bld) [#/Vol] 0.5 10*3/uL High [facility] Eosinophils/100 WBC (Bld) 4.9 % [facility] Erythrocyte distribution width (RBC) [Ratio] 14.6 % 11.5 - 15.0 % [facility] Hematocrit (Bld) [Volume fraction] 33.2 % Low 35 - 47 % [facility] Hemoglobin (Bld) [Mass/Vol] 10.9 g/dL Low 11.7 - 15.5 g/dL [facility] Interpretation and review of laboratory results Abnormal [facility] Lymphocytes (Bld) [#/Vol] 2.8 10*3/uL [facility] Lymphocytes/100 WBC (Bld) 28.7 % [facility] MCH (RBC) [Entitic mass] 27.7 pg 27 - 34 pg [facility] MCHC (RBC) [Mass/Vol] 32.9 g/dL 32 - 3 6 g/dL [facility] MCV (RBC) [Entitic vol] 84 fL 80 - 100 fL [facility] Monocytes (Bld) [#/Vol] 0.8 10*3/uL [facility] Monocytes/100 WBC (Bld) 8.1 % P [facility] Neutrophils (Bld) [#/Vol] 5.7 10*3/uL [facility] Neutrophils/100 WBC (Bld) 57.6 % [facility] Platelet mean volume (Bld) [Entitic vol] 8.9 fL 7 - 12 fL [facility] Platelets (Bld) [#/Vol] 319 10*3/uL [facility] RBC (Bld) [#/Vol] 3.95 10*6/uL [facility] WBC corrected for nucl RBC Auto (Bld) [#/Vol] 9.9 [facility] ECG 12 leadOrdered By: Mauricio Huber on 10-14-2023 [facility] MAGNESIUMon 10-14-2023 Magnesium [Mass/Vol] 1.8 mg/dL Normal 1.8-2.6 [facility] Comment on above: Performed By: #### C BCA, BMP, 26069-4, 93276-0, 59855-1 #### [facility] ([id number]) [address] [place] [address] Magnesiumon 10-14-2023 Magnesium [Mass/Vol] 1.8 mg/dL 1.8 - 2 .6 mg/dL [facility] Natriuretic peptide B [Mass/ Vol]on 10-14-2023 Interpretation and review of laboratory results Abnormal [facility] Natriuretic peptide B (Bld) [Mass/Vol] 427 pg/mL High NINF - 100.0 pg/mL [facility] Natriuretic peptide B (Bld) [Mass/Vol] 427 pg/mL High <100.0 [facility] Comment on above: Performed By: #### C BCA, BMP, 37900-8, 64485-1, 68999-7 #### [facility] ([id number]) [address] [place] [address], [place] [address] No Panel Informationon 10-13 [facility] Troponin I, High Sensitivity on 10-14-2023 Troponin I.cardiac High sensitivity method [Mass/Vol] 39 ng/L High NINF - 16 ng/L [facility] Comment on above: Elevations of hs-Troponin may be due to causes other than myocardial ischemia. Recommend serial hs-Troponin testing be performed. For the initial evaluation and management of chest pain patients, refer to the algorithms linked below. Emergency Patient: [email or web address] Inpatient: [email or web address] Troponin I.cardiac High sens itivity method [Mass/Vol]on 10-14-2023 1 HOUR TROP I, HIGH SENSITIVITY 39 ng/L High <16 [facility] Comment on above: Result Comment: Elevations of hs-Troponin may be due to causes other than myocardial ischemia. Recommend serial hs-Troponin testing be performed. For the initial evaluation and management of chest pain patients, refer to the algorithms linked below. Emergency Patient: [email or web address] Inpatient: [id number] Performed By: #### 8 9579-7 #### [facility] ([id number]) [address] [place] [id number] Interpretation and review of laboratory results Abnormal [facility] TROPONIN I, HIGH SENSITIVITY 39 ng/L High <16 [facility] Comment on above: Result Comment: Elevations of hs-Troponin may be due to causes other than myocardial ischemia. Recommend serial hs-Troponin testing be performed. For the initial evaluation and management of chest pain patients, refer to the algorithms linked below. Emergency Patient: [email or web address] Inpatient: [email or web address] Performed By: #### C BCA, BMP, 01928-9, 71657-4, 81408-2 #### [facility] ([id number]) [address] [place] [address], [place] [address] XR CHEST 1 VWon 10-14-2023 XR CHEST 1 VW XR CHEST 1 VW Single view chest History: Difficulty breathing, shortness of breath Comparison: 01/01/2021 Impression: 1. Low lung volumes and hypoventilatory change, Central pulmonary vascular congestion without overt pulmonary edema. No sizable pleural effusion, no definite pneumothorax. 2. Borderline cardiomegaly. Finalized by Naren Morris MD on 10/14/2023 11:39 PM Normal [facility] XR Chest Single viewon 10-13 Single view chest History: Difficulty breathing, shortness of breath Comparison: 01/01/2021 Impression: 1. Low lung volumes and hypoventilatory change, Central pulmonary vascular congestion without overt pulmonary edema. No sizable pleural effusion, no definite pneumothorax. 2. Borderline cardiomegaly. Finalized by Naren Morris MD on 10/14/2023 11:39 PM [employer] Naren Morris MD - 10/14/2023 Single view chest History: Difficulty breathing, shortness of breath Comparison: 01/01/2021 Impression: 1. Low lung volumes and hypoventilatory change, Central pulmonary vascular congestion without overt pulmonary edema. No sizable pleural effusion, no definite pneumothorax. 2. Borderline cardiomegaly. Finalized by Naren Morris MD on 10/14/2023 11:39 PM [employer] Radiology Study observation (narrative) INDOM XR Chest Single viewOrdered By: Naren Morris on 10-14-2023 [employer] Work Phone: ANTIBODY ID PANELon 01-03-20 ANTIBODY ID PANEL Antibody ID Anti-Jka Normal [facility] Comment on above: Performed By: #### C TABBY, HSTROPN #### [facility] [address] [place] [address] Dr. Steve Valentin CBC AUTO DIFFon 12-31-2021 BASO # 0.0 103/ul Normal 0.0-0.1 [facility] Comment on above: Performed By: #### C TABBY, HSTROPN #### [facility] [address] [place] [address] Dr. Steve Valentin Basophils/100 WBC (Bld) 0.9 % Normal 0.2-2.0 [facility] Comment on above: Performed By: #### C TABBY, HSTROPN #### [facility] [address] [place] [address] Dr. Steve Valentin EO # 0.2 103/ul Normal 0.0-0.7 [facility] Comment on above: Performed By: #### C TABBY, HSTROPN #### [facility] [address] [place] [address] Dr. Steve Valentin Eosinophils/100 WBC (Bld) 4.3 % Normal 0.9-7.0 [facility] Comment on above: Performed By: #### C TABBY, HSTROPN #### [facility] [address] [address] [address] Steve Valentin Erythrocyte distribution width (RBC) [Ratio] 14.1 % Normal 11.0-15.0 [facility] Comment on above: Performed By: #### C MP, HSTROPN #### [facility] [address] [place] [address] Dr. Steve Valentin Hematocrit (Bld) [Volume fraction] 34.6 % Critically low 36.0-48.0 [facility] Comment on above: Performed By: #### C MP, HSTROPN #### [facility] [address] [place] [address] Dr. Steve Valentin Hemoglobin (Bld) [Mass/Vol] 10.9 g/dL Critically low 12.0-16.0 [facility] Comment on above: Performed By: #### C MP, HSTROPN #### [facility] [address] [place] [address] Dr. Steve Valentin IG # 0.01 10e3/ul Normal 0.00-0.03 [facility] Comment on above: Performed By: #### C MP, HSTROPN #### [facility] [address] [place] [address] Dr. Steve Valentin IG % 0.3 % Normal 0.0-0.5 [facility] Comment on above: Performed By: #### C MP, HSTROPN #### [facility] [address] [place] [address] Dr. Steve Valentin LYMPH # 0.9 103/ul Critically low 1.2-3.[address] [facility] Comment on above: Performed By: #### C MP, HSTROPN #### [facility] [address] [place] [address] Dr. Steve Valentin Lymphocytes/100 WBC (Bld) 26.3 % Normal 20.5-60.0 [facility] Comment on above: Performed By: #### C MP, HSTROPN #### [facility] [address] [place] [address] Dr. Steve Valentin MANUAL DIFF REQ NO Normal [facility] Comment on above: Performed By: #### C MP, HSTROPN #### [facility] [address] [place] [address] Dr. Steve Valentin MCH (RBC) [Entitic mass] 26.7 pg Normal 26.7-34.0 [facility] Comment on above: Performed By: #### C MP, HSTROPN #### [facility] [address] [place] [address] Dr. Steve Valentin MCHC (RBC) [Mass/Vol] 31.5 g/dL Normal 29.9-35.2 [facility] Comment on above: Performed By: #### C MP, HSTROPN #### [facility] [address] [place] [address] Dr. Steve Valentin MCV (RBC) [Entitic vol] 84.8 fL Normal 81.0-99.0 [facility] Comment on above: Performed By: #### C MP, HSTROPN #### [facility] [address] [place] [address] Dr. Steve Valentin MONO # 0.3 103/ul Normal 0.3-0.8 [facility] Comment on above: Performed By: #### C MP, HSTROPN #### [facility] [address] [place] [address] Dr. Steve Valentin Monocytes/100 WBC (Bld) 9.5 % Normal 1.7-12.0 [facility] Comment on above: Performed By: #### C MP, HSTROPN #### [facility] [address] [place] [address] Dr. Steve Valentin NEUT # 2.0 103/ul Normal 1.4-6.5 [facility] Comment on above: Performed By: #### C MP, HSTROPN #### [facility] [address] [place] [address] Dr. Steve Valentin Neutrophils/100 WBC (Bld) 58.7 % Normal 43.0-75.0 [facility] Comment on above: Performed By: #### C MP, HSTROPN #### [facility] [address] [address] [address] Steve Valentin Platelet mean volume (Bld) [Entitic vol] 10.5 fL Normal 9.5-13.5 [facility] Comment on above: Performed By: #### C MP, HSTROPN #### [facility] [address] [address] [address] Steve Valentin PLT 164 103/ul Normal 150-450 [facility] Comment on above: Performed By: #### C MP, HSTROPN #### [facility] [address] [place] [address] Dr. Steve Valentin RBC 4.08 106/ul Critically low 4.20-5.40 [facility] Comment on above: Performed By: #### C MP, HSTROPN #### [facility] [address] [place] [address] Dr. Steve Valentin WBC 3.5 103/ul Critically low 4.0-11.[address] [facility] Comment on above: Performed By: #### C MP, HSTROPN #### [facility] [address] [place] [address] Dr. Steve Valentin PROF 14(COMP METB)on 022 Albumin [Mass/Vol] 3.0 g/dL Critically low 3.4-5.0 [facility] Comment on above: Performed By: #### C MP #### [facility] [address] [place] [address] Dr. Steve Valentin Albumin/Globulin [Mass ratio] 1.0 {ratio} Normal [facility] Comment on above: Performed By: #### C MP #### [facility] [address] [place] [address] Dr. Steve Valentin ALP [Catalytic activity/Vol] 56 U/L Normal 46-116 [facility] Comment on above: Performed By: #### C MP #### [facility] [address] [place] [address] Dr. Steve Valentin ALT [Catalytic activity/Vol] 20 U/L Normal 14-59 [facility] Comment on above: Performed By: #### C MP #### [facility] [address] [address] [address] Steve Valentin Anion gap [Moles/Vol] 9.3 mmol/L Normal [facility] Comment on above: Performed By: #### C MP #### [facility] [address] [address] [address] Steve Valentin AST [Catalytic activity/Vol] 17 U/L Normal 15-37 [facility] Comment on above: Performed By: #### C MP #### [facility] [address] [address] [address] Steve Valentin Bilirubin [Mass/Vol] 0.2 mg/dL Normal 0.2-1.0 [facility] Comment on above: Performed By: #### C MP #### [facility] [address] [address] [address] Steve Valentin Calcium [Mass/Vol] 8.8 mg/dL Normal 8.5-10.1 [facility] Comment on above: Performed By: #### C MP #### [facility] [address] [address] [address] Steve Valentin Chloride [Moles/Vol] 106 mmol/L Normal 98-107 [facility] Comment on above: Performed By: #### C MP #### [facility] [address] [address] [address] Steve Valentin CO2 [Moles/Vol] 26.5 mmol/L Normal 21.0-32.0 [facility] Comment on above: Performed By: #### C MP #### [facility] [address] [address] [address] Steve Valentin Creatinine [Mass/Vol] 0.92 mg/dL Normal 0.55-1.02 [facility] Comment on above: Performed By: #### C MP #### [facility] [address] [place] [address] Dr. Steve Valentin EGFR-AF BURKINAN >60 Normal >=60 [facility] Comment on above: Performed By: #### C MP #### [facility] [address] [address] [address] Steve Valentin EGFR-NON AF BURKINAN >60 Normal >=60 [facility] Comment on above: Performed By: #### C MP #### [facility] [address] [address] [address] Steve Valentin Globulin (S) [Mass/Vol] 2.9 g/dL Normal [facility] Comment on above: Performed By: #### C MP #### [facility] [address] [address] [address] Steve Valentin Glucose [Mass/Vol] 97 mg/dL Normal 74-106 [facility] Comment on above: Performed By: #### C MP #### [facility] [address] [address] [address] Steve Valentin Potassium [Moles/Vol] 3.8 mmol/L Normal 3.5-5.1 [facility] Comment on above: Performed By: #### C MP #### [facility] [address] [address] [address] Steve Valentin Protein [Mass/Vol] 5.9 g/dL Critically low 6.4-8.2 [facility] Comment on above: Performed By: #### C MP #### [facility] [address] [address] [address] Steve Valentin Sodium [Moles/Vol] 138 mmol/L Normal 136-145 [facility] Comment on above: Performed By: #### C MP #### [facility] [address] [address] [address] Steve Valentin Urea nitrogen [Mass/Vol] 5.0 mg/dL Critically low 7.0-18. 0 [facility] Comment on above: Performed By: #### C MP #### [facility] [address] [address] [address] Steve Valentni Urea nitrogen/Creatinine [Mass ratio] 5.4 mg/mg Normal [facility] Comment on above: Performed By: #### C MP #### [facility] [address] [address] [address] Steve Valentin CBC AUTO DIFFon 12-30-2021 BASO # 0.0 103/ul Normal 0.0-0.1 [facility] Comment on above: Performed By: #### C BC #### [facility] [address] [place] [address] Dr. Steve Valentin Basophils/100 WBC (Bld) 0.5 % Normal 0.2-2.0 [facility] Comment on above: Performed By: #### C BC #### [facility] [address] [place] [address] Dr. Steve Valentin EO # 0.1 103/ul Normal 0.0-0.7 [facility] Comment on above: Performed By: #### C BC #### [facility] [address] [place] [address] Dr. Steve Valentin Eosinophils/100 WBC (Bld) 3.2 % Normal 0.9-7.0 [facility] Comment on above: Performed By: #### C BC #### [facility] [address] [place] [address] Dr. Steve Valentin Erythrocyte distribution width (RBC) [Ratio] 14.0 % Normal 11.0-15.0 [facility] Comment on above: Performed By: #### C BC #### [facility] [address] [place] [address] Dr. Steve Valentin Hematocrit (Bld) [Volume fraction] 38.3 % Normal 36.0-48.0 [facility] Comment on above: Performed By: #### C BC #### [facility] [address] [place] [address] Dr. Steve Valentin Hemoglobin (Bld) [Mass/Vol] 11.7 g/dL Critically low 12.0-16.0 [facility] Comment on above: Performed By: #### C BC #### [facility] [address] [place] [address] Dr. Steve Valentin IG # 0.01 10e3/ul Normal 0.00-0.03 [facility] Comment on above: Performed By: #### C BC #### [facility] [address] [place] [address] Dr. Steve Valentin IG % 0.2 % Normal 0.0-0.5 [facility] Comment on above: Performed By: #### C BC #### [facility] [address] [place] [address] Dr. Steve Valentin LYMPH # 1.3 103/ul Normal 1.2-3.8 [facility] Comment on above: Performed By: #### C BC #### [facility] [address] [place] [address] Dr. Steve Valentin Lymphocytes/100 WBC (Bld) 29.6 % Normal 20.5-60.0 [facility] Comment on above: Performed By: #### C BC #### [facility] [address] [place] [address] Dr. Steve Valentin MANUAL DIFF REQ NO Normal [facility] Comment on above: Performed By: #### C BC #### [facility] [address] [place] [address] Dr. Steve Valentin MCH (RBC) [Entitic mass] 26.0 pg Critically low 26.7-34 .0 [facility] Comment on above: Performed By: #### C BC #### [facility] [address] [place] [address] Dr. Steve Valentin MCHC (RBC) [Mass/Vol] 30.5 g/dL Normal 29.9-35.2 [facility] Comment on above: Performed By: #### C BC #### [facility] [address] [place] [address] Dr. Steve Valentin MCV (RBC) [Entitic vol] 85.1 fL Normal 81.0-99.0 [facility] Comment on above: Performed By: #### C BC #### [facility] [address] [place] [address] Dr. Steve Valentin MONO # 0.5 103/ul Normal 0.3-0.8 [facility] Comment on above: Performed By: #### C BC #### [facility] [address] [place] [address] Dr. Steve Valentin Monocytes/100 WBC (Bld) 10.6 % Normal 1.7-12.0 [facility] Comment on above: Performed By: #### C BC #### [facility] [address] [place] [address] Dr. Steve Valentin NEUT # 2.4 103/ul Normal 1.4-6.5 [facility] Comment on above: Performed By: #### C BC #### [facility] [address] [place] [address] Dr. Steve Valentin Neutrophils/100 WBC (Bld) 55.9 % Normal 43.0-75.0 [facility] Comment on above: Performed By: #### C BC #### [facility] [address] [place] [address] Dr. Steve Valentin Platelet mean volume (Bld) [Entitic vol] 10.0 fL Normal 9.5-13.5 [facility] Comment on above: Performed By: #### C BC #### [facility] [address] [place] [address] Dr. Steve Valentin PLT 169 103/ul Normal 150-450 [facility] Comment on above: Performed By: #### C BC #### [facility] [address] [place] [address] Dr. Steve Valentin RBC 4.50 106/ul Normal 4.20-5.40 [facility] Comment on above: Performed By: #### C BC #### [facility] [address] [place] [address] Dr. Steve Valentin WBC 4.4 103/ul Normal 4.0-11.0 [facility] Comment on above: Performed By: #### C BC #### [facility] [address] [place] [address] Dr. Steve Valentin BASO # 0.0 103/ul Normal 0.0-0.1 [facility] Comment on above: Performed By: #### C BC #### [facility] [address] [place] [address] Dr. Steve Valentin Basophils/100 WBC (Bld) 0.4 % Normal 0.2-2.0 [facility] Comment on above: Performed By: #### C BC #### [facility] [address] [place] [address] Dr. Steve Valentin EO # 0.2 103/ul Normal 0.0-0.7 [facility] Comment on above: Performed By: #### C BC #### [facility] [address] [place] [address] Dr. Steve Valentin Eosinophils/100 WBC (Bld) 2.6 % Normal 0.9-7.0 [facility] Comment on above: Performed By: #### C BC #### [facility] [address] [place] [address] Dr. Steve Valentin Erythrocyte distribution width (RBC) [Ratio] 13.9 % Normal 11.0-15.0 [facility] Comment on above: Performed By: #### C BC #### [facility] [address] [place] [address] Dr. Steve Valentin Hematocrit (Bld) [Volume fraction] 39.1 % Normal 36.0-48.0 [facility] Comment on above: Performed By: #### C BC #### [facility] [address] [place] [address] Dr. Steve Valentin Hemoglobin (Bld) [Mass/Vol] 12.3 g/dL Normal 12.0-16.0 [facility] Comment on above: Performed By: #### C BC #### [facility] [address] [place] [address] Dr. Steve Valentin IG # 0.02 10e3/ul Normal 0.00-0.03 [facility] Comment on above: Performed By: #### C BC #### [facility] [address] [place] [address] Dr. Steve Valentin IG % 0.4 % Normal 0.0-0.5 [facility] Comment on above: Performed By: #### C BC #### [facility] [address] [place] [address] Dr. Steve Valentin LYMPH # 1.1 103/ul Critically low 1.2-3.[address] [facility] Comment on above: Performed By: #### C BC #### [facility] [address] [place] [address] Dr. Steve Valentin Lymphocytes/100 WBC (Bld) 18.9 % Critically low 20.5-60.0 [facility] Comment on above: Performed By: #### C BC #### [facility] [address] [place] [address] Dr. Steve Valentin MANUAL DIFF REQ NO Normal [facility] Comment on above: Performed By: #### C BC #### [facility] [address] [place] [address] Dr. Steve Valentin MCH (RBC) [Entitic mass] 26.3 pg Critically low 26.7-34 .0 [facility] Comment on above: Performed By: #### C BC #### [facility] [address] [place] [address] Dr. Steve Valentin MCHC (RBC) [Mass/Vol] 31.5 g/dL Normal 29.9-35.2 [facility] Comment on above: Performed By: #### C BC #### [facility] [address] [place] [address] Dr. Steve Valentin MCV (RBC) [Entitic vol] 83.7 fL Normal 81.0-99.0 [facility] Comment on above: Performed By: #### C BC #### [facility] [address] [place] [address] Dr. Steve Valentin MONO # 0.6 103/ul Normal 0.3-0.8 [facility] Comment on above: Performed By: #### C BC #### [facility] [address] [place] [address] Dr. Steve Valentin Monocytes/100 WBC (Bld) 10.0 % Normal 1.7-12.0 [facility] Comment on above: Performed By: #### C BC #### [facility] [address] [place] [address] Dr. Steve Valentin NEUT # 3.9 103/ul Normal 1.4-6.5 [facility] Comment on above: Performed By: #### C BC #### [facility] [address] [place] [address] Dr. Steve Valentin Neutrophils/100 WBC (Bld) 67.7 % Normal 43.0-75.0 [facility] Comment on above: Performed By: #### C BC #### [facility] [address] [place] [address] Dr. Steve Valentin Platelet mean volume (Bld) [Entitic vol] 10.0 fL Normal 9.5-13.5 [facility] Comment on above: Performed By: #### C BC #### [facility] [address] [place] [address] Dr. Steve Valentin PLT 200 103/ul Normal 150-450 [facility] Comment on above: Performed By: #### C BC #### [facility] [address] [place] [address] Dr. Steve Valentin RBC 4.67 106/ul Normal 4.20-5.40 [facility] Comment on above: Performed By: #### C BC #### [facility] [facility] [address] [place] [address] Dr. Steve Valentin WBC 5.7 103/ul Normal 4.0-11.0 [facility] Comment on above: Performed By: #### C BC #### [facility] [address] [place] [address] ABD/PELV W CONon [...] LO COSTA Date: 2021-12-30 08:30 Normal [facility]on SARS-CoV-2 (COVID-19) RNA RADHA+probe Ql (Unsp spec) Not detected Normal NOT DETECTED [facility] Comment on above: Result Comment: When [...] for this test is supported by the [employer] of Health and Human Service's declaration that [...] used). Performed By: #### C VDTBH #### [facility] [address] [place] [address] Dr. Steve Valentin DIRECT COOMBSon 12-30-2021 DIRECT AMARJIT Negative Normal [facility] Comment on above: Performed By: #### C MP, HSTROPN #### [facility] [address] [address] [address] Steve Valentin LACTATE/LACTIC ACIDon 2021 Lactate [Moles/Vol] 1.2 mmol/L Normal 0.4-1.[address] [facility] Comment on above: Performed By: #### L ACT #### [facility] [address] [address] [address] Steve Valentin PROF 14(COMP METB)on 022 Albumin [Mass/Vol] 3.4 g/dL Normal 3.4-5.0 [facility] Comment on above: Performed By: #### C MP, HSTROPN #### [facility] [address] [address] [address] Steve Valentin Albumin/Globulin [Mass ratio] 1.1 {ratio} Normal [facility] Comment on above: Performed By: #### C MP, HSTROPN #### [facility] [address] [address] [address] Steve Valentin ALP [Catalytic activity/Vol] 66 U/L Normal 46-116 [facility] Comment on above: Performed By: #### C MP, HSTROPN #### [facility] [address] [address] [address] Steve Valentin ALT [Catalytic activity/Vol] 18 U/L Normal 14-59 [facility] Comment on above: Performed By: #### C MP, HSTROPN #### [facility] [address] [address] [address] Steve Valentin Anion gap [Moles/Vol] 9.1 mmol/L Normal [facility] Comment on above: Performed By: #### C MP, HSTROPN #### [facility] [address] [address] [address] Steve Valentin AST [Catalytic activity/Vol] 14 U/L Critically low 15-37 [facility] Comment on above: Performed By: #### C MP, HSTROPN #### [facility] [address] [address] [address] Steve Valentin Bilirubin [Mass/Vol] 0.3 mg/dL Normal 0.2-1.0 [facility] Comment on above: Performed By: #### C MP, HSTROPN #### [facility] [address] [address] [address] Steve Valentin Calcium [Mass/Vol] 9.2 mg/dL Normal 8.5-10.1 [facility] Comment on above: Performed By: #### C MP, HSTROPN #### [facility] [address] [place] [address] Dr. Steve Valentin Chloride [Moles/Vol] 104 mmol/L Normal 98-107 [facility] Comment on above: Performed By: #### C MP, HSTROPN #### [facility] [address] [place] [address] Dr. Steve Valentin CO2 [Moles/Vol] 25.5 mmol/L Normal 21.0-32.0 [facility] Comment on above: Performed By: #### C MP, HSTROPN #### [facility] [address] [place] [address] Dr. Steve Valentin Creatinine [Mass/Vol] 0.94 mg/dL Normal 0.55-1.02 [facility] Comment on above: Performed By: #### C MP, HSTROPN #### [facility] [address] [place] [address] Dr. Steve Valentin EGFR-AF BURKINAN >60 Normal >=60 [facility] Comment on above: Performed By: #### C MP, HSTROPN #### [facility] [address] [place] [address] Dr. Steve Valentin EGFR-NON AF BURKINAN >60 Normal >=60 [facility] Comment on above: Performed By: #### C MP, HSTROPN #### [facility] [address] [place] [address] Dr. Steve Valentin Globulin (S) [Mass/Vol] 3.1 g/dL Normal [facility] Comment on above: Performed By: #### C MP, HSTROPN #### [facility] [address] [place] [address] Dr. Steve Valentin Glucose [Mass/Vol] 98 mg/dL Normal 74-106 [facility] Comment on above: Performed By: #### C MP, HSTROPN #### [facility] [address] [place] [address] Dr. Steve Valentin Potassium [Moles/Vol] 3.6 mmol/L Normal 3.5-5.1 [facility] Comment on above: Performed By: #### C MP, HSTROPN #### [facility] [address] [address] [address] Steve Valentin Protein [Mass/Vol] 6.5 g/dL Normal 6.4-8.[address] [facility] Comment on above: Performed By: #### C TABBY, HSTROPN #### [facility] [address] [place] [address] Dr. Steve Valentin Sodium [Moles/Vol] 135 mmol/L Critically low 136-145 [facility] Comment on above: Performed By: #### C MP, HSTROPN #### [facility] [address] [place] [address] Dr. Steve Valentin Urea nitrogen [Mass/Vol] 11.0 mg/dL Normal 7.0-18.0 [facility] Comment on above: Performed By: #### C TABBY, HSTROPN #### [facility] [address] [place] [address] Dr. Steve Valentin Urea nitrogen/Creatinine [Mass ratio] 11.7 mg/mg Normal [facility] Comment on above: Performed By: #### C MP, HSTROPN #### [facility] [address] [place] [address] Dr. Steve Valentin TROPONIN, HIGH SENSITIVITYon 12-30-2021 HSTROP 8.6 pg/mL Normal 4.0-51.3 [facility] Comment on above: Result Comment: CUT- OFF POINTS HAVE BEEN ESTABLISHED BASED ON THE FOURTH UNIVERSAL DEFINITIONS OF MYOCARDIAL INFARCTION. THE UPPER REFERENCE LIMIT (URL) OF TROPONIN, DEFINED THE 99TH PERCENTILE OF cTnI DISTRIBUTION IN A REFERENCE POPULATION, HAS BEEN CONFIRMED THE DECISION THRESHOLD FOR UT DIAGNOSIS. Performed By: #### C MP, HSTROPN #### [facility] [address] [place], [place] [address] Dr. Steve Valentin TYPE AND SCREENon 12-30-2021 TYPE AND SCREEN Positive Normal [facility] Comment on above: Performed By: #### T NS #### [facility] [address] [place], [place] [address] Dr. Steve Valentin XR CERVICAL SPINE (2-3 [...] Yaritza Pinedo MD 01/20/20 Final result Normal [facility] Multilevel degenerative changes [place], [place] EXAMINATION: XRAY VIEWS OF THE CERVICAL [...] dislocation or significant prevertebral soft tissue swelling [place], [place] [employer], [employer] Incoming Radiant Results From [employer] - 01/20/2020 11:34 AM EDT EXAMINATION: XRAY [...] soft tissue swelling IMPRESSION: Multilevel degenerative changes [place] XR LUMBAR SPINE (2-3 VIEWS)o n [...] Mitesh Ho MD 01/20/20 Final result Normal [facility] No acute abnormality lumbosacral spine. Degenerative findings most severe at L5-S1, with evidence DDD. [place] EXAMINATION: THREE XRAY VIEWS OF THE [...] Large amount of retained stool right colon. [place], [place] [employer], [employer] Incoming Radiant Results From [employer] - 01/20/2020 12:11 PM EDT EXAMINATION: THREE [...] most severe at L5-S1, with evidence DDD. [place], [place] Hematologyon 01-25-2018 Basophils Auto #/vol (Bld) 0.7 % Invalid Interpretation Code [facility] Basophils/100 WBC Auto (Bld) 0.0 K/uL Invalid Interpretation Code 0.0-0.1 [facility] Eosinophils/100 WBC Auto (Bld) 3.2 % Invalid Interpretation Code [facility] Erythrocyte distribution width Auto Ratio (RBC) 14.2 % Invalid Interpretation Code 10.8-14.8 [facility] Hematocrit Auto Volume Fraction (Bld) 34.70 % Invalid Interpretation Code 36.0-48.0 [facility] Hemoglobin S Solubility test Ql (Bld) 11.7 Invalid Interpretation Code 12.0-16.0 [facility] Lymphocytes/100 WBC Auto (Bld) 43.3 % Invalid Interpretation Code [facility] MCH Auto Entitic mass (RBC) 27.1 pg Invalid Interpretation Code 27.0-34.0 [facility] MCHC Auto mass conc (RBC) 33.7 g/dL Invalid Interpretation Code 31.0-36.0 [facility] MCV Auto Entitic volume (RBC) 80.5 fL Invalid Interpretation Code 80.-100. [facility] Monocytes/100 WBC Auto (Bld) 6.5 % Invalid Interpretation Code [facility] Neutrophils/100 WBC Auto (Bld) 46.1 % Invalid Interpretation Code [facility] Nucleated RBC/100 WBC Ratio (Bld) 0.1 10*3/uL Invalid Interpretation Code 0.1-0.4 [facility] Nucleated RBC/100 WBC Ratio (Bld) 1.9 10*3/uL Invalid Interpretation Code 0.8-5.2 [facility] Nucleated RBC/100 WBC Ratio (Bld) 0.3 10*3/uL Invalid Interpretation Code 0.1-0.9 [facility] Nucleated RBC/100 WBC Ratio (Bld) 2.0 10*3/uL Invalid Interpretation Code 1.3-9.1 [facility] RBC Auto #/vol (Bld) 4.310 10*6/uL Invalid Interpretation Code 4.00-5.50 [facility] Metabolic Panelon 01-25-2018 Albumin mass conc 4.10 g/dL Invalid Interpretation Code 3.5-5.2 [facility] ALP enzyme act/vol 50 U/L Invalid Interpretation Code 30-111 [facility] ALT enzyme act/vol 14 U/L Invalid Interpretation Code 5-40 [facility] Anion gap 3 molar conc 12 mmol/L Invalid Interpretation Code 10-19 [facility] AST enzyme act/vol 13 U/L Invalid Interpretation Code 9-40 [facility] Calcium mass conc 9.90 mg/dL Invalid Interpretation Code 8.5-10.5 [facility] Chloride molar conc 103 mmol/L Invalid Interpretation Code 95-107 [facility] CO2 molar conc 28 mmol/L Invalid Interpretation Code 19-31 [facility] Creatinine mass conc 1.0 mg/dL Invalid Interpretation Code 0.6-1.3 [facility] Glucose mass conc 89 mg/dL Invalid Interpretation Code 70-99 [facility] Potassium molar conc 4.30 mmol/L Invalid Interpretation Code 3.5-5.4 [facility] Protein mass conc 6.0 g/dL Invalid Interpretation Code 6.1-8.3 [facility] Protein mass conc 0.59 g/dL Invalid Interpretation Code <0.5 [facility] Sodium molar conc 143 mmol/L Invalid Interpretation Code 135-146 [facility] Urea nitrogen mass conc 14.0 mg/dL Invalid Interpretation Code 8-23 [facility] Otheron 01-25-2018 Bilirubin Ql (U) 0.2 Invalid Interpretation Code <1.3 [facility] WBC LM Ql (Sput) 4.4 Invalid Interpretation Code 3.7-10.8 [facility] 74.5 Invalid Interpretation Code >59 [facility] 237 Invalid Interpretation Code 150.-450. [facility] 15 Invalid Interpretation Code 0-30 [facility] 64.3 Invalid Interpretation Code >59 [facility] Thyroidon 01-25-2018 T4 free mass conc 1.140 ng/dL Invalid Interpretation Code 0.80-1.90 [facility] Thyrotropin Qn 1.750 uIU/mL Invalid Interpretation Code 0.400-4.10 0 [facility] Progress Noteon 10-23-2017 HIM IP Note OR Practice Representative Normal [facility] HIM IP Note OR Practice Representative Normal [facility] Otheron 09-20-2017 3 Invalid Interpretation Code [facility] 3 Invalid Interpretation Code [facility] Cardiacon 09-14-2017 Cholesterol 220 mg/dL Invalid Interpretation Code <200 [facility] HDL Cholesterol 77.0 mg/dL Invalid Interpretation Code >39 [facility] Triglyceride 113.0 mg/dL Invalid Interpretation Code <150 [facility] Hematologyon 09-14-2017 Basophils Auto #/vol (Bld) 1.0 % Invalid Interpretation Code [facility] Basophils/100 WBC Auto (Bld) 0.1 K/uL Invalid Interpretation Code 0.0-0.1 [facility] Eosinophils/100 leukocytes 2.9 % Invalid Interpretation Code [facility] Erythrocyte distribution width Auto Ratio (RBC) 14.1 % Invalid Interpretation Code 10.8-14.8 [facility] Erythrocytes (RBC) 4.230 10*6/uL Invalid Interpretation Code 4.00-5.50 [facility] Hematocrit (HCT) 37.0 % Invalid Interpretation Code 36.0-48.0 [facility] Hemoglobin S presence 11.7 Invalid Interpretation Code 12.0-16.0 [facility] Lipoprotein a mass conc 0.2 10*3/uL Invalid Interpretation Code 0.1-0.4 [facility] Lipoprotein a mass conc 2.0 10*3/uL Invalid Interpretation Code 0.8-5.2 [facility] Lipoprotein a mass conc 0.5 10*3/uL Invalid Interpretation Code 0.1-0.9 [facility] Lipoprotein a mass conc 2.6 10*3/uL Invalid Interpretation Code 1.3-9.1 [facility] Lymphocytes/100 leukocytes 37.6 % Invalid Interpretation Code [facility] MCH 27.7 pg Invalid Interpretation Code 27.0-34.0 [facility] MCHC mass conc (RBC) 31.6 g/dL Invalid Interpretation Code 31.0-36.0 [facility] MCV 87.5 fL Invalid Interpretation Code 80.-100. [facility] Monocytes/100 leukocytes 8.8 % Invalid Interpretation Code [facility] Neutrophils/100 leukocytes 49.5 % Invalid Interpretation Code [facility] WBC (Leukocytes) 5.2 10*3/uL Invalid Interpretation Code 3.7-10.8 [facility] Otheron 09-14-2017 Cholesterol crystals Infrared spectroscopy Ql (Stone) 220 mg/dL Invalid Interpretation Code <200 [facility] Cholesterol to HDL Ratio 2.9 {ratio} Invalid Interpretation Code <5 [facility] LDL to HDL Ratio 1.6 Invalid Interpretation Code <3.5 [facility] [employer] Lipoprotein.beta/Lipopro tein.alpha mass ratio 1.6 Invalid Interpretation Code <3.5 [facility] PreB-LP SerPl-mCnc 23.0 mg/dL Invalid Interpretation Code <30 [facility] PreB-LP SerPl-mCnc 120.0 mg/dL Invalid Interpretation Code <130 [facility] WBC LM Ql (Sput) 5.2 Invalid Interpretation Code 3.7-10.8 [facility] [employer] 298 Invalid Interpretation Code 150.-450. [facility] Thyroidon 09-14-2017 Thyroid stimulating hormone (TSH) 2.270 uIU/mL Invalid Interpretation Code 0.40-4.10 [facility] Thyroxine (T4) free 0.990 ng/dL Invalid Interpretation Code 0.80-1.90 [facility] Vital Signs Date Time Vital Sign Value Performing Clinician Ni barnard 01-31-2024 14:17-0400 Body mass index (BMI) [Ratio] 62.69 kg/m2 Erica Siddiquitrick [employer] Work Phone: [facility] 01-31-2024 14:17-0400 Body temperature 97.2 [degF] Erica Siddiquitrick [employer] Work Phone: [facility] 01-31-2024 14:17-0400 Body weight 145.6 kg Erica Siddiquitrick [employer] Work Phone: [facility] 01-31-2024 14:17-0400 Diastolic blood pressure 80 mm[Hg] Erica Menonpatrick [employer] Work Phone: [facility] 01-31-2024 14:17-0400 Heart rate 57 /min Erica Siddiquitrick [employer] Work Phone: [facility] 01-31-2024 14:17-0400 SaO2% (BldA) [Mass fraction] 94 % Erica Siddiquitrick [employer] Work Phone: [facility] 01-31-2024 14:17-0400 Systolic blood pressure 152 mm[Hg] Erica Menonpatrick [employer] Work Phone: [facility] 01-15-2024 14:38-0400 Diastolic blood pressure 74 mm[Hg] Hanane Courtneyasi [employer] Work Phone: [facility] 01-15-2024 14:38-0400 Heart rate 68 /min Hanane Valdezasi [employer] Work Phone: [facility] 01-15-2024 14:38-0400 Systolic blood pressure 130 mm[Hg] Hanane BARRERA Work Phone: [facility] [employer] [facility] 01-15-2024 14:36-0400 Body mass index (BMI) [Ratio] 64.25 kg/m2 Hanane BARRERA Work Phone: [facility] [employer] [facility] 01-15-2024 14:36-0400 Body weight 149.23 kg Hanane BARRERA Work Phone: [facility] [employer] [facility] 01-15-2024 14:36-0400 SaO2% (BldA) [Mass fraction] 96 % Hanane BARRERA Work Phone: [facility] [employer] [facility] 11-29-2023 08:53-0400 Body height 152.4 cm Pfo 1 [facility] [employer] [facility] 11-29-2023 08:53-0400 Body mass index (BMI) [Ratio] 65.27 kg/m2 Pfo 1 [facility] [employer] [facility] 11-29-2023 08:53-0400 Body temperature 97.39 [degF] Pfo 1 [facility] 11-29-2023 08:53-0400 Body weight 151.59 kg Pfo 1 [facility] [employer] [facility] 11-29-2023 08:53-0400 Diastolic blood pressure 73 mm[Hg] Pfo 1 [facility] [employer] [facility] 11-29-2023 08:53-0400 Heart rate 73 /min Pfo 1 [facility] [employer] [facility] 11-29-2023 08:53-0400 Respiratory rate 21 /min Pfo 1 [facility] 11-29-2023 08:53-0400 SaO2% (BldA) [Mass fraction] 99 % Pfo 1 [facility] [employer] [facility] 11-29-2023 08:53-0400 Systolic blood pressure 142 mm[Hg] Pfo 1 [facility] 10-18-2023 21:58-0400 Heart rate 75 /min Isma Hayward MD Work Phone: [facility] [employer] 10-18-2023 21:58-0400 Respiratory rate 18 /min Isma Hayward MD Work Phone: [facility] 10-18-2023 21:48-0400 SaO2% (BldA) [Mass fraction] 94 % Isma Hayward MD Work Phone: [facility] 10-18-2023 19:27-0400 Body temperature 98.1 [degF] Isma Hayward MD Work Phone: [facility] 10-18-2023 19:27-0400 Diastolic blood pressure 77 mm[Hg] Isma Hayward MD Work Phone: [facility] 10-18-2023 19:27-0400 Systolic blood pressure 137 mm[Hg] Isma Hayward MD Work Phone: [facility] 10-18-2023 03:45-0400 Body mass index (BMI) [Ratio] 64.86 kg/m2 Isma Hayward MD Work Phone: [facility] 10-18-2023 03:45-0400 Body weight 150.64 kg Isma Hayward MD Work Phone: [facility] 10-16-2023 12:10-0400 Body height 152.4 cm Isma Hayward MD Work Phone: [facility] 02-13-2018 13:08-0400 BMI (Body Mass Index) 56.47 kg/m2 [facility] 02-13-2018 13:08-0400 Body Temperature 98 [degF] [facility] 02-13-2018 13:08-0400 BP Diastolic 80 mm[Hg] [facility] 02-13-2018 13:08-0400 BP Systolic 124 mm[Hg] [facility] 02-13-2018 13:08-0400 BSA (Body Surface Area) 2.39 m2 Leda Agrawal [facility] 02-13-2018 13:08-0400 Height 153.67 cm [facility] 02-13-2018 13:08-0400 Pulse (Heart Rate) 74 /min Leda Tanja [facility] 02-13-2018 13:08-0400 Pulse Oximetry 97 % [facility] 02-13-2018 13:08-0400 Respiratory Rate 20 /min [facility] 02-13-2018 13:08-0400 Weight 133.36 kg [facility] 02-13-2018 10:08-0400 Body height 153.67 cm Leda Agrawal CNP Work Phone: [facility] Work Phone: 02-13-2018 10:08-0400 Body mass index (BMI) [Ratio] 56.5 kg/m2 Leda Agrawal CNP Work Phone: [facility] Work Phone: 02-13-2018 10:08-0400 Body surface area Derived from formula 2.21 m2 Leda Agrawal CNP Work Phone: [facility] Work Phone: 02-13-2018 10:08-0400 Body temperature 98 [degF] Leda Agrawal CNP Work Phone: [facility] Work Phone: 02-13-2018 10:08-0400 Body weight 133.36 kg Leda Agrawal CNP Work Phone: [facility] Work Phone: 02-13-2018 10:08-0400 Diastolic blood pressure 80 mm[Hg] Leda Agrawal CNP Work Phone: [facility] Work Phone: 02-13-2018 10:08-0400 Heart rate 74 /min Leda Agrawal CNP Work Phone: [facility] Work Phone: 02-13-2018 10:08-0400 Respiratory rate 20 /min Leda Agrawal CNP Work Phone: [facility] Work Phone: 02-13-2018 10:08-0400 Systolic blood pressure 124 mm[Hg] Leda Agrawal CNP Work Phone: [facility] Work Phone: 01-25-2018 12:47-0400 BMI (Body Mass Index) 56.47 kg/m2 [facility] 01-25-2018 12:47-0400 Body Temperature 98.4 [degF] [facility] 01-25-2018 12:47-0400 BP Diastolic 82 mm[Hg] [facility] 01-25-2018 12:47-0400 BP Systolic 122 mm[Hg] [facility] 01-25-2018 12:47-0400 BSA (Body Surface Area) 2.39 m2 [facility] 01-25-2018 12:47-0400 Height 153.67 cm [facility] 01-25-2018 12:47-0400 Pulse (Heart Rate) 73 /min [facility] 01-25-2018 12:47-0400 Pulse Oximetry 96 % [facility] 01-25-2018 12:47-0400 Respiratory Rate 18 /min [facility] 01-25-2018 12:47-0400 Weight 133.36 kg Leda Agrawal [facility] 01-25-2018 09:47-0400 Body height 153.67 cm Leda Agrawal CNP Work Phone: [facility] Work Phone: 01-25-2018 09:47-0400 Body mass index (BMI) [Ratio] 56.5 kg/m2 Leda Agrawal CNP Work Phone: [facility] Work Phone: 01-25-2018 09:47-0400 Body surface area Derived from formula 2.21 m2 Leda Agrawal CNP Work Phone: [facility] Work Phone: 01-25-2018 09:47-0400 Body temperature 98.4 [degF] Leda Agrawal CNP Work Phone: [facility] Work Phone: 01-25-2018 09:47-0400 Body weight 133.36 kg Leda Agrawal CNP Work Phone: [facility] Work Phone: 01-25-2018 09:47-0400 Diastolic blood pressure 82 mm[Hg] Leda Agrawal CNP Work Phone: [facility] Work Phone: 01-25-2018 09:47-0400 Heart rate 73 /min Leda Agrawal CNP Work Phone: [facility] Work Phone: 01-25-2018 09:47-0400 Respiratory rate 18 /min Leda Agrawal CNP Work Phone: [facility] Work Phone: 01-25-2018 09:47-0400 Systolic blood pressure 122 mm[Hg] Leda Agrawal CNP Work Phone: [facility] Work Phone: 11-14-2017 18:20-0400 BMI (Body Mass Index) 56.47 kg/m2 [facility] 11-14-2017 18:20-0400 Body Temperature 97.4 [degF] [facility] 11-14-2017 18:20-0400 BP Diastolic 80 mm[Hg] [facility] 11-14-2017 18:20-0400 BP Systolic 130 mm[Hg] [facility] 11-14-2017 18:20-0400 BSA (Body Surface Area) 2.39 m2 [facility] 11-14-2017 18:20-0400 Height 153.67 cm [facility] 11-14-2017 18:20-0400 Pulse (Heart Rate) 96 /min [facility] 11-14-2017 18:20-0400 Pulse Oximetry 95 % [facility] 11-14-2017 18:20-0400 Respiratory Rate 18 /min [facility] 11-14-2017 18:20-0400 Weight 133.36 kg [facility] 11-14-2017 15:20-0400 Body height 153.[address] [facility] [employer] Work Phone: [facility] Work Phone: 11-14-2017 15:20-0400 Body mass index (BMI) [Ratio] 56.5 kg/m2 [facility] [employer] Work Phone: [facility] Work Phone: 11-14-2017 15:20-0400 Body surface area Derived from formula 2.21 m2 Leda Agrawal CNP Work Phone: [facility] Work Phone: 11-14-2017 15:20-0400 Body temperature 97.4 [degF] Leda Agrawal CNP Work Phone: [facility] Work Phone: 11-14-2017 15:20-0400 Body weight 133.36 kg Leda Agrawal CNP Work Phone: [facility] Work Phone: 11-14-2017 15:20-0400 Diastolic blood pressure 80 mm[Hg] Leda Agrawal CNP Work Phone: [facility] Work Phone: 11-14-2017 15:20-0400 Heart rate 96 /min Leda Agrawal CNP Work Phone: [facility] Work Phone: 11-14-2017 15:20-0400 Respiratory rate 18 /min Leda Agrawal CNP Work Phone: [facility] Work Phone: 11-14-2017 15:20-0400 Systolic blood pressure 130 mm[Hg] Leda Agrawal CNP Work Phone: [facility] Work Phone: 10-12-2017 11:11-0400 BMI (Body Mass Index) 57.12 kg/m2 Leda Agrawal [facility] 10-12-2017 11:11-0400 Body Temperature 98.8 [degF] Leda Agrawal [facility] 10-12-2017 11:11-0400 BP Diastolic 83 mm[Hg] Leda Agrawal [facility] 10-12-2017 11:11-0400 BP Systolic 122 mm[Hg] Leda Agrawal [facility] 10-12-2017 11:11-0400 BSA (Body Surface Area) 2.4 m2 [facility] 10-12-2017 11:11-0400 Height 153.67 cm [facility] 10-12-2017 11:11-0400 Pulse (Heart Rate) 79 /min [facility] 10-12-2017 11:11-0400 Pulse Oximetry 99 % [facility] 10-12-2017 11:11-0400 Respiratory Rate 18 /min [facility] 10-12-2017 11:11-0400 Weight 134.89 kg [facility] 10-12-2017 10:11-0400 BMI (Body Mass Index) 57.12 kg/m2 [facility] 10-12-2017 10:11-0400 Body Temperature 98.8 [degF] [facility] 10-12-2017 10:11-0400 BP Diastolic 83 mm[Hg] [facility] 10-12-2017 10:11-0400 BP Systolic 122 mm[Hg] [facility] 10-12-2017 10:11-0400 BSA (Body Surface Area) 2.4 m2 [facility] 10-12-2017 10:11-0400 Height 153.67 cm [facility] 10-12-2017 10:11-0400 Pulse (Heart Rate) 79 /min [facility] 10-12-2017 10:11-0400 Pulse Oximetry 99 % Leda Agrawal [facility] 10-12-2017 10:11-0400 Respiratory Rate 18 /min Leda Agrawal [facility] 10-12-2017 10:11-0400 Weight 134.89 kg Leda Agrawal [facility] 10-12-2017 08:11-0400 Body height 153.67 cm Leda Agrawal CNP Work Phone: [facility] Work Phone: 10-12-2017 08:11-0400 Body mass index (BMI) [Ratio] 57 kg/m2 Leda Agrawal CNP Work Phone: [facility] Work Phone: 10-12-2017 08:11-0400 Body surface area Derived from formula 2.22 m2 Leda Agrawal CNP Work Phone: [facility] Work Phone: 10-12-2017 08:11-0400 Body temperature 98.8 [degF] Leda Agrawal CNP Work Phone: [facility] Work Phone: 10-12-2017 08:11-0400 Body weight 134.72 kg Leda Agrawal CNP Work Phone: [facility] Work Phone: 10-12-2017 08:11-0400 Diastolic blood pressure 83 mm[Hg] Leda Agrawal CNP Work Phone: [facility] Work Phone: 10-12-2017 08:11-0400 Heart rate 79 /min Leda Agrawal CNP Work Phone: [facility] Work Phone: 10-12-2017 08:11-0400 Respiratory rate 18 /min Leda Agrawal CNP Work Phone: [facility] Work Phone: 10-12-2017 08:11-0400 Systolic blood pressure 122 mm[Hg] Leda Agrawal [facility] Work Phone: [facility] Work Phone: 09-20-2017 17:04-0400 BP Diastolic 80 mm[Hg] [facility] 09-20-2017 17:04-0400 BP Systolic 136 mm[Hg] [facility] 09-20-2017 16:19-0400 BMI (Body Mass Index) 59.21 kg/m2 [facility] 09-20-2017 16:19-0400 Body Temperature 97.1 [degF] [facility] 09-20-2017 16:19-0400 BP Diastolic 80 mm[Hg] [facility] 09-20-2017 16:19-0400 BP Systolic 142 mm[Hg] [facility] 09-20-2017 16:19-0400 BSA (Body Surface Area) 2.44 m2 [facility] 09-20-2017 16:19-0400 Height 153.67 cm [facility] 09-20-2017 16:19-0400 Pulse (Heart Rate) 94 /min [facility] 09-20-2017 16:19-0400 Pulse Oximetry 96 % [facility] 09-20-2017 16:19-0400 Respiratory Rate 18 /min [facility] 09-20-2017 16:19-0400 Weight 139.82 kg [facility] 09-20-2017 16:04-0400 BP Diastolic 80 mm[Hg] [facility] 09-20-2017 16:04-0400 BP Systolic 136 mm[Hg] [facility] 09-20-2017 15:19-0400 BMI (Body Mass Index) 59.21 kg/m2 [facility] 09-20-2017 15:19-0400 Body Temperature 97.1 [degF] [facility] 09-20-2017 15:19-0400 BP Diastolic 80 mm[Hg] [facility] 09-20-2017 15:19-0400 BP Systolic 142 mm[Hg] [facility] 09-20-2017 15:19-0400 BSA (Body Surface Area) 2.44 m2 [facility] 09-20-2017 15:19-0400 Height 153.67 cm [facility] 09-20-2017 15:19-0400 Pulse (Heart Rate) 94 /min [facility] 09-20-2017 15:19-0400 Pulse Oximetry 96 % [facility] 09-20-2017 15:19-0400 Respiratory Rate 18 /min [facility] 09-20-2017 15:19-0400 Weight 139.82 kg [facility] 09-20-2017 14:04-0400 Diastolic blood pressure 80 mm[Hg] [facility] Work Phone: [facility] Work Phone: 09-20-2017 14:04-0400 Systolic blood pressure 136 mm[Hg] Leda Agrawal CNP Work Phone: [facility] Work Phone: 09-20-2017 13:19-0400 Body height 153.67 cm Leda Agrawal CNP Work Phone: [facility] Work Phone: 09-20-2017 13:19-0400 Body mass index (BMI) [Ratio] 59.2 kg/m2 Leda Agrawal CNP Work Phone: [facility] Work Phone: 09-20-2017 13:19-0400 Body surface area Derived from formula 2.26 m2 Leda Agrawal CNP Work Phone: [facility] Work Phone: 09-20-2017 13:19-0400 Body temperature 97.1 [degF] Leda Agrawal CNP Work Phone: [facility] Work Phone: 09-20-2017 13:19-0400 Body weight 139.71 kg Leda Agrawal CNP Work Phone: [facility] Work Phone: 09-20-2017 13:19-0400 Diastolic blood pressure 80 mm[Hg] Leda Agrawal CNP Work Phone: [facility] Work Phone: 09-20-2017 13:19-0400 Heart rate 94 /min Leda Agrawal CNP Work Phone: [facility] Work Phone: 09-20-2017 13:19-0400 Respiratory rate 18 /min Leda Agrawal CNP Work Phone: [facility] Work Phone: 09-20-2017 13:19-0400 Systolic blood pressure 142 mm[Hg] Leda Agrawal CNP Work Phone: [facility] Work Phone: 09-14-2017 12:35-0400 BMI (Body Mass Index) 59.76 kg/m2 [facility] 09-14-2017 12:35-0400 Body Temperature 97 [degF] [facility] 09-14-2017 12:35-0400 BP Diastolic 72 mm[Hg] [facility] 09-14-2017 12:35-0400 BP Systolic 122 mm[Hg] [facility] 09-14-2017 12:35-0400 BSA (Body Surface Area) 2.45 m2 [facility] 09-14-2017 12:35-0400 Height 153.67 cm [facility] 09-14-2017 12:35-0400 Pulse (Heart Rate) 71 /min [facility] 09-14-2017 12:35-0400 Pulse Oximetry 97 % [facility] 09-14-2017 12:35-0400 Respiratory Rate 18 /min [facility] 09-14-2017 12:35-0400 Weight 141.13 kg [facility] 09-14-2017 11:35-0400 BMI (Body Mass Index) 59.76 kg/m2 [facility] 09-14-2017 11:35-0400 Body Temperature 97 [degF] [facility] 09-14-2017 11:35-0400 BP Diastolic 72 mm[Hg] [facility] 09-14-2017 11:35-0400 BP Systolic 122 mm[Hg] Leda Tanja [facility] 09-14-2017 11:35-0400 BSA (Body Surface Area) 2.45 m2 Leda Tanja [facility] 09-14-2017 11:35-0400 Height 153.67 cm [facility] 09-14-2017 11:35-0400 Pulse ([facility] Rate) 71 /[facility] 09-14-2017 11:35-0400 Pulse Oximetry 97 % [facility] 09-14-2017 11:35-0400 Respiratory Rate 18 /min [facility] 09-14-2017 11:35-0400 Weight 141.13 kg [facility] 09-14-2017 09:35-0400 Body height 153.67 cm Leda Agrawal [facility] Work Phone: [facility] Work Phone: 09-14-2017 09:35-0400 Body mass index (BMI) [Ratio] 59.7 kg/m2 Leda Agrawal CNP Work Phone: [facility] Work Phone: 09-14-2017 09:35-0400 Body surface area Derived from formula 2.27 m2 Leda Agrawal CNP Work Phone: [facility] Work Phone: 09-14-2017 09:35-0400 Body temperature 97 [degF] Leda Agrawal [employer] Work Phone: [facility] Work Phone: 09-14-2017 09:35-0400 Body weight 141.07 kg Leda Agrawal CNP Work Phone: [facility] Work Phone: 09-14-2017 09:35-0400 Diastolic blood pressure 72 mm[Hg] Leda Agrawal [employer] Work Phone: [facility] Work Phone: 09-14-2017 09:35-0400 Heart rate 71 /min Leda Agrawal [employer] Work Phone: [facility] Work Phone: 09-14-2017 09:35-0400 Respiratory rate 18 /min Leda Agrawal [employer] Work Phone: [facility] Work Phone: 09-14-2017 09:35-0400 Systolic blood pressure 122 mm[Hg] Leda Agrawal [employer] Work Phone: [facility] Work Phone: Encounters Encounter Date Encounter Type Care Provider Facility Start: 12-06-2024 ambulatory [facility] Start: 12-06-2024 End: 12-06-2024 ambulatory [facility] Start: 11-21-2024 End: 11-21-2024 ambulatory [facility] Start: 11-07-2024 End: 11-07-2024 ambulatory [facility] Start: 10-08-2024 End: 10-08-2024 ambulatory [facility] Start: 05-23-2024 End: 05-23-2024 ambulatory [facility] Start: 05-20-2024 End: 05-20-2024 ambulatory [facility] Start: 05-09-2024 End: 05-09-2024 ambulatory [facility] Start: 03-19-2024 End: 03-19-2024 Telephone encounter Keenan CHAMPION [facility] Start: 02-16-2024 End: 02-16-2024 Refill Janedebra Freemanelka [employer] MACHINE OPERATOR[employer] Work Phone: [facility] Start: 01-31-2024 End: 01-31-2024 Bamboo flowsheet Erica Pompa [employer] Work Phone: [facility] Start: 01-31-2024 End: 01-31-2024 Bamboo flowsheet Erica Pompa [employer] Work Phone: [facility] Start: 01-31-2024 End: 01-31-2024 Office outpatient visit 10 minutes Erica Siddiquitrick [employer] Work Phone: [facility] Comment on above: Chronic obstructive pulmonary disease with acute exacerbation (CMS/HCC) (Primary Dx); Chronic rhinitis; Bipolar depression ([facility]); ADORE (obstructive sleep apnea); Pulmonary emphysema, unspecified emphysema type ([facility]/HCC) Start: 01-31-2024 End: 01-31-2024 Refill Janedebra Freemanelka [employer] MACHINE OPERATOR-[employer] Work Phone: [facility] Start: 01-31-2024 End: 01-31-2024 ambulatory ERICA POMPA Not Available Start: 01-29-2024 End: 01-29-2024 Refill Erica Pompa [employer] Work Phone: [facility] Comment on above: ARSH (generalized anx iety disorder) ([facility]/HCC) Start: 01-29-2024 End: 01-29-2024 Refill Jane L Veselka F[employer] MACHINE OPERATOR-[employer] Work Phone: [facility] Start: 01-22-2024 End: 01-22-2024 ambulatory [facility] Start: 01-15-2024 End: 01-15-2024 Office outpatient visit 40 minutes [facility] FUR MACHINE OPERATOR-[employer] Work Phone: [facility] Comment on above: ERIN (acute kidney in jury) (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 (Primary Dx) Start: 12-19-2023 End: 12-19-2023 [facility] Start: 11-29-2023 End: 11-29-2023 ambulatory [facility] Comment on above: 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 (Primary Dx) Start: 11-14-2023 End: 11-14-2023 Orders Only Shazia La RN N [facility] Comment on above: 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 (Primary Dx) Start: 11-13-2023 End: 11-13-2023 Orders Only Shazia La RN N [facility] Start: 11-07-2023 End: 11-07-2023 [facility] Comment on above: 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 Start: 10-14-2023 End: 10-19-2023 Emergency department patient visit ALEXIS Olguin LEXI [facility] Start: 10-14-2023 End: 10-18-2023 Evaluation and management of inpatient NOT IN SYSTEM [facility] Comment on above: ERIN (acute kidney in jury) ([facility]-HCC) (Primary Dx); Hypertensive urgency; Hypokalemia; Elevated brain natriuretic peptide (BNP) level Start: 04-26-2023 End: 04-26-2023 ambulatory LINARES JHONY Not Available Start: 04-15-2022 End: 04-17-2022 ambulatory QUYNH ARCHER Facility:[facility]1 Start: 02-08-2022 End: 02-09-2022 ambulatory NANCI BEEBE Facility:[facility] Start: 12-30-2021 End: 12-31-[address] VU RIVERA Facility:[facility]1 Start: 01-20-2020 End: 01-23-2020 Patient encounter procedure [facility] Start: 01-20-2020 End: 01-22-2020 Subsequent hospital visit by physician Roman Palacio Dr Room 4 [facility] Comment on above: Chronic bilateral lo w back pain without sciatica Chronic neck pain; Chronic bilateral low back pain without sciatica Start: 07-31-2018 Patient encounter procedure Heath Kirkpatrick Facility:[id number] Start: 07-20-2018 End: 07-20-2018 General Leda Agrawal CNP Work Phone: [facility] Work Phone: Start: 02-13-2018 End: 02-13-2018 Patient encounter procedure Leda Agrawal CNP Work Phone: [facility] Work Phone: Start: 02-13-2018 Office outpatient vi sit 15 minutes Leda Agrawal Other [facility] Start: 01-25-2018 End: 01-25-2018 Patient encounter procedure Leda Agrawal CNP Work Phone: [facility] Work Phone: Start: 01-25-2018 Office outpatient vi sit 15 minutes Leda Agrawal Other [facility] Start: 11-14-2017 Office outpatient vi sit 15 minutes Leda Agrawal Other [facility] Start: 11-14-2017 End: 11-14-2017 Patient encounter procedure Leda Agrawal [employer] Work Phone: [facility] Work Phone: Start: 10-12-2017 End: 10-12-2017 Patient encounter procedure Leda Agrawal [employer] Work Phone: [facility] Work Phone: Start: 10-12-2017 End: 10-12-2017 Office outpatient visit 15 minutes Leda Agrawal Other [facility] Start: 10-12-2017 Polysom 6/>yrs sleep 4/> addl nicky attnd [facility] Start: 10-12-2017 Polysom 6/>yrs sleep w/cpap 4/> [facility] Start: 09-20-2017 End: 09-20-2017 Office outpatient visit 15 minutes Leda Agrawal Other [facility] Start: 09-20-2017 End: 09-20-2017 Patient encounter procedure Leda Agrawal [employer] Work Phone: [facility] Work Phone: Start: 09-14-2017 End: 09-14-2017 Patient encounter procedure Leda Agrawal [employer] Work Phone: [facility] Work Phone: Start: 09-14-2017 Laboratory examinati on, unspecified Leda Agrawal [facility] Start: 09-14-2017 Colonoscopy w/biopsy single/multiple Leda Agrawal [facility] Start: 09-14-2017 Dxa bone density kourtney dy 1/> sites axial skel [facility] Start: 09-14-2017 End: 09-14-2017 Office outpatient new 45 minutes Leda Agrawal Other [facility] Procedures Date Procedure Procedure Detail Performing Clinician Start: 10-19-2023 Adult depression scr eening assessment Shazia La RN Start: 10-18-2023 POCT IONIZED CALCIUM Axel Jewell MD Work Phone: Start: 10-18-2023 Comprehensive metabo lic panel Kristina Travis FUR MACHINE OPERATOR[employer] Work Phone: Start: 10-17-2023 Potassium serum plas ma/whole blood Elva Man MD Work Phone: Start: 10-17-2023 Blood occult peroxid ase actv qual feces 1-3 spec Nataliia Cohen FUR MACHINE OPERATOR-[employer] Work Phone: Start: 10-17-2023 Pulmonary ventilatio n & perfusion imaging Nataliia Cohen FUR MACHINE OPERATOR-[employer] Work Phone: Start: 10-17-2023 End: 10-17-2023 Comprehensive metabolic panel Kristina Travis FUR MACHINE OPERATOR-[employer] Work Phone: Start: 10-16-2023 Fibrin dgradj produc [...] 2d w/ wom-mode compl spec&colr d Antione D Krotzer FUR MACHINE OPERATOR-[employer] Work Phone: Start: 10-16-2023 End: 10-16-2023 Potassium serum plasma/whole blood Dre Jewell MD Work Phone: Start: 10-16-2023 Us retroperitoneal r eal time w/image complete Fran Wild MD Work Phone: Start: 10-16-2023 End: 10-16-2023 Comprehensive metabolic panel Kristina Robles FUR MACHINE OPERATOR-[employer] Work Phone: Start: 10-16-2023 CLINICAL PATHOLOGY Alhaji Flores MD Work Phone: Start: 10-15-2023 Assay of urine sodium R luna Wild MD Work Phone: Start: 10-15-2023 Urnls dip stick/tabl et rgnt auto w/o microscopy Fran Wild MD Work Phone: Start: 10-15-2023 Antinuclear antibodies saul Fran Wild MD Work Phone: Start: 10-15-2023 Creatine kinase total M uhamid Clau Jewell MD Work Phone: Start: 10-15-2023 FREE LIGHT CHAINS Fran Wild MD Work Phone: Start: 10-15-2023 Iaad ia hepatitis b surface antigen Fran Wild MD Work Phone: Start: 10-15-2023 BIPAP/CPAP/AUTOPAP Antione Hernández Kulwinderdeirdre FUR MACHINE OPERATOR-[employer] Work Phone: Start: 10-15-2023 Comprehensive metabo lic panel Kristina Robles FUR MACHINE OPERATOR-[employer] Work Phone: Start: 10-14-2023 Radiologic exam ches [...] Kempsager Ravishankar Work Phone: Start: 10-14-2019 Colonoscopy Shaziamame Ramirez son RN Start: 02-25-2019 Mammography Erica henderson [employer] Work Phone: Start: 08-10-2018 Follow-up visit Start: [...] Leda Agrawal Start: 09-14-2017 Lipid panel Leda qauch Start: 09-14-2017 Pap not indicated Leda Agrawal Start: 09-14-2017 Physical therapy management Leda Agrawal Start: 09-14-2017 Pt-focused hlth risk assmt score doc stnd instrm Leda Agrawal Start: 09-14-2017 Pulmonology. Leda quach Plan of Treatment Date Care Activity Detail Author Start: 10-13-2029 Screening for malignant neoplasm of colon [facility] Start: 01-14-2025 Adult BMI Screening Adult BMI Screening [facility] Start: 11-28-2024 Adult BMI Screening Adult BMI Screening [facility] Start: 11-28-2024 Tobacco Screening Tobacco Screening [facility] Start: 10-24-2024 Adult BMI Screening Adult BMI Screening [facility] Start: 10-18-2024 Depression Screening Depression Screening [facility] Start: 10-18-2024 Tobacco Screening Tobacco Screening [facility] Start: 10-13-2024 Screening for malignant neoplasm of colon Colonoscopy [facility] Start: 03-25-2024 End: 03-25-2024 Patient encounter procedure 03/25/2024 10:30 AM EST Office Visit N [facility] [address] [place] [address] Fran Wild MD [address] [place] [address] [facility] Start: 02-06-2024 End: 02-06-2024 Patient encounter procedure 02/06/2024 1:30 PM EDT Office Visit [facility] [address] [place] [phone] Erica Pompa, [employer] [address] [place] [phone] [facility] Start: 01-31-2024 End: 01-31-2024 Patient encounter procedure 01/31/2024 2:00 PM EDT Office Visit [facility] [address] [place] [phone] Erica Pompa, [employer] [address] [place] [phone] Arrived [facility] Comment on above: Arrived Start: 01-31-2024 End: 01-30-2025 XR Chest 2 Views XR chest 2 views Imaging Routine Chronic obstructive pulmonary disease with acute exacerbation (CMS/HCC) Expected: 01/31/2024, Expires: 01/30/2025 [facility] Work Phone: Comment on above: Expected: 01/31/2024, Expires: Start: 01-22-2024 End: 01-14-2025 Basic metabolic 2000 panel - Serum or Plasma Basic Metabolic Panel Lab Routine 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) Expected: 01/22/2024 (Approximate), Expires: 01/14/2025 [facility] Work Phone: Comment on above: Expected: 01/22/2024 (Approximate), Expi res: 01/14/2025 Start: 12-24-2023 Influenza vaccination [facility] Start: 12-06-2023 End: 12-06-2023 ambulatory 12/06/2023 10:00 AM EDT Infusion Sylviajesika Zayas [facility] [address] [place] [address] Sylvia Zayas [facility] Start: 01-30-2021 COVID-19 Vaccine (2 - Roxanne risk series) COVID-19 Vaccine (2 - Roxanne risk series) [facility] Start: 04-30-2020 End: 04-30-2020 Office Visit 04/30/2020 Office Visit Neurology Tim Sharma MD [address] [place] [address] [address] [place] [address] [facility] Start: 02-26-2020 Screening for malignant neoplasm of breast Mammogram [facility] Start: 12-24-2019 Influenza vaccination Flu vaccine (#1) [place], [place] Start: 08-31-2019 Screening for malignant neoplasm of lung Low dose CT lung screening [place], [place] Start: 02-13-2019 Creatinine measurement Creatinine monitoring [place], [place] Start: 11-30-2018 Potassium monitoring Potassium monitoring [place] Start: 11-08-2018 Lipid panel Lipid screen [place] Start: 08-02-2018 [facility] visit, estab pt Established Patient [facility] Work Phone: Start: 10-12-2017 Polysom 6/>yrs sleep 4/> addl nicky attnd Polysomnography with CPAP testing [facility] Start: 10-12-2017 Polysom 6/>yrs sleep w/cpap 4/> addl nicky attnd Polysomnography with CPAP testing [facility] Start: 09-14-2017 Dual energy X-ray photon absorptiometry DEXA scan for body composition study [facility] Start: 08-22-2016 Screening for malignant neoplasm of breast Breast cancer screen [place], [place] Start: 01-24-2016 Screening for malignant neoplasm of cervix Cervical cancer screen [place], [place] Start: 2014 Screening for malignant neoplasm of colon Colon cancer screen colonoscopy [place] Start: 2014 Shingles Vaccine (1 of 2) Shingles Vaccine (1 of 2) [place] Start: 1994 Screening for malignant neoplasm of cervix [facility] Start: 1985 Screening for malignant neoplasm of cervix Pap Smear [facility] Start: 08-31-1983 Administration of varicella zoster vaccine Zoster (Shingles) Vaccine (1 of 2) [facility] [facility] Start: 08-31-1983 DTaP,Tdap and Td Vaccines (1 - Tdap) DTaP,Tdap and Td Vaccines (1 - Tdap) [facility] Start: 08-31-1983 DTaP/Tdap/Td vaccine (1 - Tdap) DTaP/Tdap/Td vaccine (1 - Tdap) [place], [place] Start: 1982 Adult BMI Follow Up Plan Adult BMI Follow Up Plan [facility] Start: 08-31-1979 HIV screening HIV screen [place], [place] Start: 1970 Pneumococcal 0-64 years Vaccine (1 of 1 - PPSV23) Pneumococcal 0-64 years Vaccine (1 of 1 - PPSV23) [place] Start: 1964 Hepatitis C screening Hepatitis C screen [place] Start: 1964 Screening for malignant neoplasm of colon [facility] Start: 1964 Tobacco Counseling Tobacco Counseling [facility] Basement membrane Ig G Ab [Units/volume] in Serum Glomerular Basement Membrane IgG, Serum Lab Routine 10/18/2023 11:37 AM EDT [facility] Basic metabolic 2000 panel - Serum or Plasma Basic Metabolic Panel Lab Routine Lab max of 3 days, Daily, for lab use only until discontinued starting 10/16/2023 [employer] Comment on above: Lab max of 3 days, Daily, for lab use on ly until discontinued starting 10/16/2023 End: 01-01-2025 Basic metabolic 2000 panel - Serum or Plasma Basic Metabolic Panel Lab Routine 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 1 Occurrences starting 01/02/2024 until 01/01/2025 [facility] Comment on above: 1 Occurrences starting 01/02/2024 until 01/01/2025 BiPAP/CPAP/AutoPAP BiPAP/CPAP/Au toPAP Respiratory Care Routine Every 12 hour check until discontinued starting 10/15/2023, 1 completed [employer] Work Phone: Comment on above: Every 12 hour check until discontinued s tarting 10/15/2023, 1 completed CBC panel - Blood by Automated count CBC without diff Lab Routine Lab max of 3 days, Daily, for lab use only until discontinued starting 10/16/2023 [employer] 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 1 Occurrences starting 01/02/2024 until 01/01/2025 [employer] Comment on above: 1 Occurrences starting 01/02/2024 until 01/01/2025 CBC W Auto Different ial panel - Blood CBC auto differential Lab Routine Lab max of 3 days, Daily, for lab use only until discontinued starting 10/15/2023, 4 completed [facility] Comment on above: Lab max of 3 days, Daily, for lab use on ly until discontinued starting 10/15/2023, 4 completed Comprehensive metabo lic 2000 panel - Serum or Plasma Comprehensive metabolic panel Lab Routine Lab max of 3 days, Daily, for lab use only until discontinued starting 10/15/2023, 4 completed [employer] [facility] Comment on above: Lab max of 3 days, Daily, for lab use on ly until discontinued starting 10/15/2023, 4 completed End: 10-15-2023 Cryoglobulin W/ Identification [facility] Comment on above: Once for 1 Occurrences starting 10/15/19 until 10/15/2023 End: 10-18-2023 Glomerular Basement Membrane IgG, Serum Glomerular Basement Membrane IgG, Serum Lab Routine Once for 1 Occurrences starting 10/18/2023 until 10/18/2023 [employer] Work Phone: Comment on above: Once for 1 Occurrences starting 10/18/19 until 10/18/2023 Ionized calcium Ionized calcium Lab Routine Lab max of 3 days, Daily, for lab use only until discontinued starting 10/16/2023 [employer] [employer] Comment on above: Lab max of 3 days, Daily, for lab use on ly until discontinued starting 10/16/2023 Magnesium [Mass/volu me] in Serum or Plasma Magnesium Lab Routine Lab max of 3 days, Daily, for lab use only until discontinued starting 10/15/2023, 4 completed [facility] Comment on above: Lab max of 3 days, Daily, for lab use on ly until discontinued starting 10/15/2023, 4 completed End: 01-01-2025 Magnesium [Mass/volume] in Serum or Plasma Magnesium Lab Routine 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 1 Occurrences starting 01/02/2024 until 01/01/2025 [employer] [employer] Comment on above: 1 Occurrences starting 01/02/2024 until 01/01/2025 End: 10-18-2023 Myeloperoxidase Antibodies, IgG, Serum Myeloperoxidase Antibodies, IgG, Serum Lab Routine Once for 1 Occurrences starting 10/18/2023 until 10/18/2023 [employer] Comment on above: Once for 1 Occurrences starting 10/18/19 until 10/18/2023 Myeloperoxidase IgG Ab [Units/volume] in Serum Myeloperoxidase Antibodies, IgG, Serum Lab Routine 10/18/2023 11:37 AM EDT [facility] Oxygen Therapy - Maintain SpO2: 90%; *DIRECTOR OF DISTRIBUTION Guidelines for O2: Yes; Document: \[email or web address]\epi c\EPIC_Reference\Orders\ Respiratory Care Guidelines\CPG Oxygen 2022.pdf Oxygen Therapy - Maintain SpO2: 90%; *DIRECTOR OF DISTRIBUTION Guidelines for O2: Yes; Document: \Moe [email or web address]\epic\ EPIC_Reference\Orders\Resp iratory Care Guidelines\CPG Oxygen 2022.pdf Respiratory Care Routine As Needed until discontinued starting 10/15/2023 [employer] 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 1 Occurrences starting 01/02/2024 until 01/01/2025 [employer] [employer] Comment on above: 1 Occurrences starting 01/02/2024 until 01/01/2025 Phosphate [Mass/volu me] in Serum or Plasma Phosphorus Lab Routine Lab max of 3 days, Daily, for lab use only until discontinued starting 10/16/2023, 3 completed [facility] Comment on above: Lab max of 3 days, Daily, for lab use on ly until discontinued starting 10/16/2023, 3 completed End: 01-01-2025 Phosphate [Mass/volume] in Serum or Plasma Phosphorus Lab Routine 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 1 Occurrences starting 01/02/2024 until 01/01/2025 [employer] [employer] Comment on above: 1 Occurrences starting 01/02/2024 until 01/01/2025 End: 01-01-2025 Protein creat ratio Protein creat ratio Lab Routine 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 1 Occurrences starting 01/02/2024 until 01/01/2025 [facility] Comment on above: 1 Occurrences starting 01/02/2024 until 01/01/2025 Protein electrophore sis, urine Protein electrophoresis, urine Lab Routine 10/16/2023 10:37 AM EDT [facility] End: 01-01-2025 Urinalysis Urinalysis Lab Routine 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 1 Occurrences starting 01/02/2024 until 01/01/2025 [facility] Comment on above: 1 Occurrences starting 01/02/2024 until 01/01/2025 End: 01-01-2025 Vitamin D 25 hydroxy Vitamin D 25 hydroxy Lab Routine 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 1 Occurrences starting 01/02/2024 until 01/01/2025 [employer] Comment on above: 1 Occurrences starting 01/02/2024 until 01/01/2025 Immunizations Immunization Date Immunization Notes Care Provider Fa cility 01-02-2021 COVID-19 Vaccine, vector-nr, rS-Ad26, PF, 0.5mL Isma Hayward MD Work Phone: [facility] Payers Date Payer Category Payer Medicaid HMO [facility] MEDICAID Member Subscriber Plan / Payer (Effective 2022-Present) Name: Danielle Montana Relation to Subscriber: Self Name: Danielle Montana Payer ID: [id number] (NAIC) Group ID: [id number] Type: Not on file Address: [place] [phone] 2022 Private Health Insurance [facility] [id number] 2022-Present [phone] [address] [place] [id number] 2022 Medicaid [id number] 2017 Medicaid [id number] 1959 Private Health Insurance [id number] 2.16.840.1.588759.3.441 1964 Unknown [id number] 2.16.840.1.537388.3.579. 2.356 1964 Unknown [id number] 2.16.840.1.869967.3.579. 2.173 1964 Unknown [id number] 2.16.840.1.038203.3.579. 2.173 1964 Unknown [id number] 2.16840.1.262269.3.579. 2.173 1964 Unknown [id number] 2.16.840.1.727905.3.579. 2.593 1964 Unknown [id number] 2.16.840.1.142208.3.579. 2.593 1964 Unknown [id number] 2.16.840.1.809235.3.579. 2.593 1964 Unknown [id number] 2.16.840.1.033438.3.579. 2.1286 1964 Unknown [id number] 2.16.840.1.079362.3.579. 2.6 1964 Unknown [id number] 2.16.840.1.203644.3.579. 2.1285 1964 Unknown [id number] 2.16.840.1.095146.3.579. 2.1285 1964 Unknown [id number] 2.16.840.1.651980.3.579. 2.128 1964 Unknown [id number] 2.16.840.1.155129.3.579. 2.1285 1964 Unknown [id number] 2.16.840.1.196694.3.579. 2.1285 1964 Unknown [id number] 2.16.840.1.898462.3.579. 2.1285 1964 Unknown [id number] 2.16.840.1.223604.3.579. 2.128 1964 Unknown [id number] 2.16.840.1.124757.3.579. 2.1285 1964 Unknown [id number] 2.16.840.1.003086.3.579. 2.9 1964 Unknown [id number] 2.16.840.1.346731.3.579. 2.1259 1964 Unknown [id number] 2.16.840.1.711868.3.579. 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 (finding) [place] Start: 1965 Sex Assigned At Not on file [place] Exposure to SARS-CoV -2 (event) Not sure [place] Tobacco smoking status Unknown if ever sm [facility] Work Phone: History of tobacco use Passive smoker [facility] Start: 11-02-2023 Alcoholic beverage intake Lifetime non-drinker (finding) [facility] Start: 06-04-2020 End: 11-02-2023 Tobacco use panel [facility] Start: 10-15-2023 End: 01-15-2024 Alcoholic beverage intake Ex-drinker (finding) [facility] Has the [employer], or [employer] threatened to shut off services in your home in past 12Mo No [facility] How often to you hav e a drink containing alcohol? Never [facility] Average Number of Drinks Not on file [facility] How often to you hav e a drink containing alcohol? Monthly or less [facility] How many standard drinks containing alcohol do you have on a typical day? 1 or 2 [facility] Start: 11-27-2014 Sex Female (finding) [facility] Goals Date Patient Goal [...] Notes 02-09-2022 to 12-06-2024 Telephone Encounter - Keenanbarrie Rodas CMA - 03/19/2024 9:40 AM ESTTelephone Encounter - Keenan TANVI Rodas - 03/19/2024 9:40 AM Tammy Pompa NP [...] List Diagnosis Date Noted Anxiety 11/06/2023 Cancer ([facility]) 11/06/2023 Cervical cancer ([facility]) 11/06/2023 Morbid obesity ([facility]) 11/06/2023 Cluster headache 11/06/2023 Degenerative arthritis 11/06/2023 Dry mouth 11/06/2023 Heartburn 11/06/2023 Joint pain 11/06/2023 Mouth sores 11/06/2023 MRSA (methicillin resistant Staphylococcus aureus) 11/06/2023 Nausea 11/06/2023 Osteoporosis 11/06/2023 Back pain 11/06/2023 Other chest pain 11/06/2023 SOB (shortness of breath) 11/06/2023 Stiff muscles 11/06/2023 Swollen ankles 11/06/2023 Weakness 11/06/2023 Emphysema of lung (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) 10/16/2023 Right knee pain 10/16/2023 Tear of articular cartilage of right knee, current, initial encounter 10/16/2023 ERIN (acute kidney injury) 10/15/2023 Edema of both lower extremities 10/15/2023 Mixed hyperlipidemia 10/15/2023 Hypokalemia 10/15/2023 Bipolar depression ([facility]) 04/26/2023 Chronic rhinitis 04/26/2023 Hyperlipidemia 04/26/2023 Non-recurrent acute suppurative otitis media of both ears without spontaneous rupture of tympanic membranes 04/26/2023 Hyperglycemia, drug-induced 12/26/2020 ADORE (obstructive sleep apnea) 12/26/2020 COPD with acute exacerbation ([facility]) 12/25/2020 Urinary tract infection 02/03/2019 Acute respiratory failure with hypoxia and hypercarbia ([facility]) 01/22/2019 Memory change 02/13/2018 Pneumonia of both lungs due to infectious organism 07/14/2017 Peripheral visual field defect, bilateral 05/31/2017 Visual hallucination 05/31/2017 ARSH (generalized anxiety disorder) 04/13/2017 Open angle with borderline findings and high glaucoma risk in both eyes 01/25/2017 Astigmatism, regular 12/15/2016 Hyperopia 12/15/2016 Presbyopia 12/15/2016 PAD (peripheral artery disease) 12/07/2016 Chest pain on exertion 11/11/2016 Chronic obstructive pulmonary disease ([facility]) 06/07/2016 DNS (deviated nasal septum) 06/07/2016 Dysphonia 06/07/2016 Henry's edema of vocal folds 06/07/2016 Smoking 06/07/2016 Tinnitus of right ear 06/07/2016 Tongue lesion 06/03/2016 Cellulitis of left hand 11/15/2015 Essential hypertension 04/20/2015 Morbid (severe) obesity due to excess calories ([facility]) 11/08/2013 Dysthymic disorder 11/08/2013 Fibromyalgia, primary 11/08/2013 Gastroesophageal reflux disease 01/19/2012 Abnormal cardiovascular stress test 11/19/2024 Abnormal findings on diagnostic imaging of heart and coronary circulation 11/19/2024 Allergies: Allergies[2] ARTIFICIAL BREEDING DISTRIBUTOR/Current Medications: Prescriptions Prior to Admission[3] Current Medications[4] [...] and agreed to proceed. Abram Man PGY-4 Sap Abap Programmer [facility] [1] Past Medical History: Diagnosis Date Abnormal ECG Cancer (CMS/HCC) CHF (congestive heart failure) (CMS/HCC) COPD (chronic obstructive pulmonary disease) (CMS/HCC) Hypertension RLS (restless legs syndrome) Sleep apnea [2] Allergies Allergen Reactions Pregabalin Other and Unknown Mental changes Codeine GI intolerance and Nausea And Vomiting Other reaction(s): Nausea And Vomiting Sulfamethoxazole-Trimethoprim Hives [3] Medications Laurita (more content not included)... [facility] 12-06-2024 Note No associated orders from this encounter found during lookback period of 72 hours. [facility] 10-08-2024 Note [facility] Cardiology Clinic Note Chief Complaint: Patient [...] , Rfl: cholecalciferol (Vitamin D-3) 50 MCG (1999 UT) tablet, Take by mouth in the [...] Bumex 1 mg (more content not included)... [facility] 05-20-2024 Note [facility] Cardiology Clinic Note Chief Complaint: Patient here for follow up [facility] for acute CHF. She was discharged from [facility] on losartan and amlodipine but she says she was never provided with RX's for these. She used to see [facility] cardiology back in 2020 for chest pain [...] problems arise Mehrdad Mccormick MD, MPH, FACC, [facility], [facility] Interventional Cardiology Pager Email: [email or web address] Addendum: The patient is in need of a blood pressure cuff to measure her blood pressure at home and to keep an accurate log. Mehrdad Mccorimck MD, MPH, FACC, F (more content not included)... [facility] 03-19-2024 Miscellaneous Notes Called patient and left a voicemail to confirm their upcoming appt on 03/25/24 in [place] with Fran Wild MD. The patient was instructed to call our office back to further confirm: [phone] documented in this encounter [facility] 03-19-2024 Telephone encounter Note Called patient and left a voicemail to confirm their upcoming appt on 03/25/24 in [place] with Fran Wild MD. The patient was instructed to call our office back to further confirm: [phone] [facility] 01-31-2024 History of Present illness Narrative Associated Problem(s): Chronic obstructive pulmonary disease ([facility]) Poorly controlled COPD. Currently taking Trelegy [...] pt to have CXR completed YVAN. Phoned [facility] radiology to call with results. Advised pt if dyspnea, chest pain, dizziness, or worsening symptoms occur to report to ER immediately. Pt verbalized understanding. Pt was following with Pulmonology in [place] 2 years ago, needs established with new Medical Technical Writer. Has hx of ADORE- does not wear [...] Sore throat Was previously seeing Pulmonology in [place], has not been seen in 2 years. Needs to establish with new control board operator. Review of Systems Constitutional: Negative for activity [...] Addressed This Visit Chronic obstructive pulmonary disease ([facility]) - Primary Poorly controlled COPD. Currently taking [...] understanding. Pt was following with Pulmonology in [place] 2 years ago, needs established with new Medical Technical Writer. Has hx of ADORE- does not wear [...] Orders Ambulatory referral to Pulmonology Bipolar depression (CMS/HCC) Relevant Medications lamoTRIgine (LaMICtal) 100 MG tablet Chronic rhinitis Relevant Medications cetirizine (ZyrTEC) 10 MG tablet Emphysema of lung ([facility]) Relevant Orders Ambulatory referral to Pulmonology documented in this encounter [facility] 01-31-2024 Instructions Erica Pompa NP [...] ER!!!! documented in this encounter [facility] 01-15-2024 History of Present illness Narrative Images [...] History: Diagnosis Date ERIN (acute kidney injury) ([facility]) 10/18/2023 Anxiety Back pain Cancer ([facility]) cervical cancer approx 1994 Cervical cancer ([facility]) Chest pain Cluster headache COPD (chronic obstructive pulmonary disease) ([facility]) Degenerative arthritis Depression Dry mouth Emphysema Emphysema of lung ([facility]) Fibromyalgia Fibromyalgia, primary GERD (gastroesophageal reflux disease) Heartburn Hypertension Joint pain Morbid obesity ([facility]) Mouth sores MRSA (methicillin resistant Staphylococcus aureus) Nausea Obesity Osteoporosis PAD (peripheral artery disease) ([facility]) PVD (peripheral vascular disease) ([facility]) Sleep apnea cpap SOB (shortness of breath) Stiff muscles Swollen ankles Weakness Surgical History: Past Surgical History: Procedure Laterality Date ABDOMINAL SURGERY BILATERAL SI JOINT INJECTION #1 Bilateral 11/07/2016 Performed by Mony Klein MD at [facility] COLONOSCOPY N/A 10/14/2019 Performed by Eben Lindsay DO at [facility] Coronary angiogram and left ventricular gram/pressure N/A 11/18/2016 Performed by Bobby Stanton MD at [facility] CARDIAC CATH LABS HYSTERECTOMY 06/22/1998 INCISION AND DRAINAGE and irrigation w/Drain LEFT HAND and left elbow Left 11/16/2015 Performed by Kt Ann MD at [facility] TOE AMPUTATION Social History: Social History [...] 10/15/2023 IRONSAT 16 07/17/2017 FERRITIN 45 10/15/2023 [id number] 159 (L) 10/15/2023 [id number] 391 08/15/2014 FOLATE 10.3 10/15/2023 FOLATE 7.6 [...] (Answering service). BRUCE Landon [facility] This note was created with the assistance of a speech-recognition program. Although the intention is to generate a document that actually reflects the content of the visit, no guarantees can be provided that every mistake has been identified and corrected by editing. BRUCE Landon 01/15/24 1530 BRUCE Landon 01/15/24 1531 documented in this encounter [facility] 01-04-2024 Miscellaneous Notes ----- Message from GAMAL Mccray sent at 01/02/2024 1:46 PM EDT ----- This patient will need added to next weeks add on clinic. She was never seen after hospital d/c in October and she is on rituxan. Ill put her labs in Shazia Pinto LM to schedule f/u. documented in this encounter [facility] 01-04-2024 Telephone encounter Note ----- Message from GAMAL Mccray sent at 01/02/2024 1:46 PM EDT ----- This patient will need added to next weeks add on clinic. She was never seen after hospital d/c in October and she is on rituxan. Ill put her labs in Shazia Pinto [facility] 01-04-2024 Telephone encounter Note LM to schedule f/u. [facility] 11-29-2023 History of Present illness Narrative Pt [...] stable ambulatory condition. documented in this encounter [facility] 10-18-2023 Plan of care note Problem: Pain Goal: Patient goal is pain score less than 4, able to rest, and participant in treatment plan as appropriate Description: INTERVENTIONS: 1. Encourage patient or legal petroleum products sales representative to report early pain and ask [...] per policy 9. Teach patient or legal petroleum products sales representative interventions for comforting Outcome: Progressing Note: [...] at the bedside 7. Instruct patient/ patient petroleum products sales representative about use of safety devices 8. Include patient/ patient petroleum products sales representative in decisions related to safety Outcome: Progressing Note: Evaluation of progress towards goal: call light within reach, bed to lowest position [facility] 10-18-2023 Miscellaneous Notes Problem: Pain Goal: Patient goal is pain score less than 4, able to rest, and participant in treatment plan as appropriate Description: INTERVENTIONS: 1. Encourage patient or legal petroleum products sales representative to report early pain and ask [...] per policy 9. Teach patient or legal petroleum products sales representative interventions for comforting Outcome: Progressing Note: [...] at the bedside 7. Instruct patient/ patient petroleum products sales representative about use of safety devices 8. Include patient/ patient petroleum products sales representative in decisions related to safety Outcome: Progressing Note: Evaluation of progress towards goal: call light within reach, bed to lowest position DISCHARGE PLANNING NOTE Danielle [place] [employer]ward[employer] conducted a visit at patient bedside. Patient ws updated on transfer process. We discussed that we did find her a new physician, Shawn Zamora in [place], [place]. It is on patient's AVS for time of discharge. Patient Discharge Plan: Home with self care. New physician will be Dr. Shawn Zamora in [place], [place]. [phone]. Patient is to call at time of [...] that there are some limitations compared to tcpd-ii-glcy evaluations. We elected to proceed. Nephrology Daily [...] dapsone and atovaquone are not available in [facility]. Patient is allergic to Bactrim. 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 Once the patient is at [facility] will start PJP prophylaxis with atovaquone 0 or dapsone. Strict Is&Os. Do not start anticoagulation or antiplatelet therapy without notify Nephrology as patient will need kidney biopsy Irving Flores M.D. [facility] Thank you for your consultation and allowing us to participate in the care of Danielle Montana and please do not hesitate to call us with any questions at: Office: [phone] Office Answering Service: [phone] Please feel free to contact me through [employer] Secure chat during the daytime hours, if [...] Description: INTERVENTIONS: 1. Encourage patient or legal petroleum products sales representative to report early pain and ask [...] per policy 9. Teach patient or legal petroleum products sales representative interventions for comforting Outcome: Progressing Note: [...] at the bedside 7. Instruct patient/ patient petroleum products sales representative about use of safety devices 8. Include patient/ patient petroleum products sales representative in decisions related to safety Outcome: Progressing Note: Evaluation of progress towards goal: PT is free of falls, hourly rounding is completed, area is kept clear. Problem: Knowledge Deficit Goal: Patient/patient petroleum products sales representative demonstrates understanding of disease process, treatment [...] at the bedside 7. Instruct patient/ patient petroleum products sales representative about use of safety devices 8. Include patient/ patient petroleum products sales representative in decisions related to safety Outcome: Progressing Note: Evaluation of progress towards goal: Pt oriented to own abilities. Adequate lighting, area clear of hazards. Problem: Knowledge Deficit Goal: Patient/patient petroleum products sales representative demonstrates understanding of disease process, treatment [...] Score of =/> 25 or indicated by [facility] Re[facility] Assessment Goal: Patient should be free from fall Description: Interventions: 1. [place] to environment 2. Hourly rounds addressing the [...] non-skid footwear 11. Teach patient and patient petroleum products sales representative to maintain environment for safety and [...] (cane, walker) within reach 19. Request patient petroleum products sales representative bring adaptive equipment/mobility aids from home or obtain and provide as needed 20. Consult pharmacy regarding effects of med's affecting mobility, cognition, and alternatives 21. Obtain physician order for PT if risk factors associated with mobility are present 22. Obtain physician order for OT as appropriate 23. Utilize diversional activities 24. Educate patient and patient petroleum products sales representative how to maintain a safe environment during visitation times (notify nurse prior to leaving bedside) 25. Consider appropriateness of medical or non-medical investigator 26. Set up voiding schedule as appropriate [...] that there are some limitations compared to ljpj-tm-exnr evaluations. We elected to proceed. Nephrology Daily [...] ratio is 4.7 g/g. SAUL is pending. Fcbk-lzspuc-sphtssms DNA is pending. Anca is pending. Glomerular [...] workup Irving Flores M.D. [facility] Thank you for your consultation and allowing us to participate in the care of Danielle Montana and please do not hesitate to call us with any questions at: Office: [phone] Office Answering Service: [phone] Please feel free to contact me through [employer] Secure chat during the daytime hours, if [...] Description: INTERVENTIONS: 1. Encourage patient or legal petroleum products sales representative to report early pain and ask [...] per policy 9. Teach patient or legal petroleum products sales representative interventions for comforting Outcome: Progressing Note: [...] at the bedside 7. Instruct patient/ patient petroleum products sales representative about use of safety devices 8. Include patient/ patient petroleum products sales representative in decisions related to safety Outcome: Progressing Note: Evaluation of progress towards goal: Patient will remain safe and free from injury. Problem: Low Risk Fall Score Description: Flores Fall Score of 0 - 24 or indicated by [facility] Assessment Goal: Patient should be free from fall Description: Interventions: 1. [place] to environment 2. Hourly rounds addressing the [...] non-skid footwear 11. Teach patient and patient petroleum products sales representative to maintain environment for safety and [...] at the bedside 7. Instruct patient/ patient petroleum products sales representative about use of safety devices 8. Include patient/ patient petroleum products sales representative in decisions related to safety Outcome: [...] Description: INTERVENTIONS: 1. Encourage patient or legal petroleum products sales representative to report early pain and ask [...] per policy 9. Teach patient or legal petroleum products sales representative interventions for comforting Outcome: Progressing Note: [...] at the bedside 7. Instruct patient/ patient petroleum products sales representative about use of safety devices 8. Include patient/ patient petroleum products sales representative in decisions related to safety Outcome: [...] hygiene technique 7. Identify and instruct patient/patient petroleum products sales representative in use of appropriate isolation precautions for identified infection/symptoms 8. Provide and discuss with patient/patient petroleum products sales representative on educational MDRO sheet 9. Encourage and monitor nutritional status daily and consult letter carrier if indicated 10. Implement neutropenic guidelines as [...] progress towards goal: Vitals WNL, patient is nicanor, nephro consulted. I/O's continued 10/16/20231650 by GAMAL Aden Note: Evaluation of progress towards goal: Vitals WNL, patient is luis aing, nephro consulted. I/O's continued. Images from the [...] that there are some limitations compared to yfex-dv-qlkz evaluations. We elected to proceed. Nephrology Daily [...] chain ratio is 0.9 SAUL is pending. Gdxl-gaxtas-hbkbreet DNA is pending. Anca is pending. Glomerular [...] outpatient Irving Flores M.D. [facility] Thank you for your consultation and allowing us to participate in the care of Danielle Montana and please do not hesitate to call us with any questions at: Office: [phone] Office Answering Service: [phone] Please feel free to contact me through [employer] Secure chat during the daytime hours, if [...] of assessment Discharge Planning Assessment completed at [facility]. Refueler identified self and role to the patient. Patient is agreeable to the assessment and discussion of a safe discharge plan. 10/16/23 0915 Discharge Disposition Discharge Disposition Home with Self Care County Information County of Residence [place] Patient Information Primary Caregiver Self Support System [...] of Residence Private residence Private Residence 1 [place] Residence Accessibility Steps into home Number of Steps 2 Home Care Services No Community Agencies Currently Utilized Food [place] (Patient states she does her own cooking [...] DC Assessment Completed: Yes Pharmacy: [facility] in [place], [place]. [facility] to use [facility]. PCP: [...] Description: INTERVENTIONS: 1. Encourage patient or legal petroleum products sales representative to report early pain and ask [...] per policy 9. Teach patient or legal petroleum products sales representative interventions for comforting Outcome: Progressing Note: Evaluation of progress towards goal: Pt able to report pain according to 0/10 pain scale. Medicating patient for pain per orders. Problem: Pain Goal: Patient goal is pain score less than 4, able to rest, and participant in treatment plan as appropriate Description: INTERVENTIONS: 1. Encourage patient or legal petroleum products sales representative to report early pain and ask [...] per policy 9. Teach patient or legal petroleum products sales representative interventions for comforting Outcome: Progressing Note: Evaluation of progress towards goal: Pt able to report pain according to 0/10 pain scale. Medicating patient for pain per orders. Problem: Knowledge Deficit Goal: Patient/patient petroleum products sales representative demonstrates understanding of disease process, treatment [...] Reason for Consult: Elevated creatinine Referring Provider: Kristina Robles APRN-NEWBORN PHOTOGRAPHER PCP: PCP Not In System Chief Complaint: [...] from last 7 days Lab Units 10/15/23 0510/14/23 2220 SODIUM mmol/L 140 139 POTASSIUM mmol/L [...] call us with any questions at: Office: [phone] Office Answering Service: [phone] Fran Wild M.D. This note was created [...] that there are some limitations compared to kbnh-tc-eslm evaluations. We elected to proceed. Problem: Knowledge Deficit Goal: Patient/patient petroleum products sales representative demonstrates understanding of disease process, treatment [...] Description: INTERVENTIONS: 1. Encourage patient or legal petroleum products sales representative to report early pain and ask [...] per policy 9. Teach patient or legal petroleum products sales representative interventions for comforting Outcome: Progressing Note: [...] at the bedside 7. Instruct patient/ patient petroleum products sales representative about use of safety devices 8. Include patient/ patient petroleum products sales representative in decisions related to safety Outcome: Progressing Note: Evaluation of progress towards goal: ongoing. Problem: Knowledge Deficit Goal: Patient/patient petroleum products sales representative demonstrates understanding of disease process, treatment plan, medications, and discharge instructions Description: INTERVENTIONS 1. Complete learning assessment and assess knowledge base 2. Provide teaching at level of understanding 3. Provide teaching via preferred learning method(s) Outcome: Progressing Note: Evaluation of progress towards goal: ongoing. documented in this encounter [facility] 10-18-2023 Progress note Formatting of t his note might be different from the original. DISCHARGE PLANNING NOTE Danielle Montana [employer] conducted a visit at patient bedside. Patient ws updated on transfer process. We discussed that we did find her a new physician, Shawn Zamora in [place], [place]. It is on patient's AVS for time of discharge. Patient Discharge Plan: Home with self care. New physician will be Dr. Shawn Zamora in [place], [place]. [phone]. Patient is to call at time of discharge to schedule appointments as below. Schedule a follow up appointment with new PCP for 7-10 days. Schedule a new patient appointment with new PCP as available. - Silvana Conklin RN 10/18/23 11:22 AM [facility] 10-18-2023 Hospital course Narrative Images from the original note were not included. [facility] INTERNAL MEDICINE Hospital Medicine Discharge Summary Patient: Danielle Montana Date of : 1965 Room: [facility]/ Encounter date: 10/18/23 DATE OF ADMISSION: 10/14/2023 DATE OF DISCHARGE:10/18/2023 DISCHARGE DIAGNOSES Principal Problem: ERIN (acute kidney injury) ([facility]) Active Problems: Chronic obstructive pulmonary disease ([facility]) Hypertension ADORE (obstructive sleep apnea) Hypokalemia Edema of both lower extremities Mixed hyperlipidemia Abnormal fasting glucose LUTHER (iron deficiency anemia) Bipolar depression (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 Antione Santa APRN-TELLY, 10/18/2023 11:02 AM [facility] 7AM-7PM (all facilities): Gavin or simon through [facility]. 7PM-7AM ([facility] Psychiatry and Inpatient Rehab): Gavin or simon, [phone]. 7PM-7AM ([facility]): EpicChat or page through [employer]. This note is dictated with the use of M*Modal. Please note that this dictation was completed with computer voice recognition software. Quite often unanticipated grammatical, syntax, homophones, and other interpretive errors are inadvertently transcribed by the computer software. Please disregard these errors. Please excuse any errors that have escaped final proofreading. Antione Santa, FUR MACHINE OPERATOR-NEWBORN PHOTOGRAPHER 10/18/23 1106 I have seen and evaluated the patient, and have reviewed the history above and agree. I have repeated the vázquez portions of the physical exam and concur with the DEREK findings. I have reviewed all laboratory findings and imaging reports/films. I agree with the plan as noted above. Isma hayward documented in this encounter [facility] [employer] [facility] 10-18-2023 Progress note Formatting of t [...] that there are some limitations compared to hgiy-ny-koti evaluations. We elected to proceed. Nephrology Daily [...] mmol/L 29 -- 28 -- 28 -- 27 BUN mg/dL 37* -- 26* -- [...] dapsone and atovaquone are not available in [facility]. Patient is allergic to Bactrim. 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 Once the patient is at [facility] will start PJP prophylaxis with atovaquone 0 or dapsone. Strict Is&Os. Do not start anticoagulation or antiplatelet therapy without notify Nephrology as patient will need kidney biopsy Irving Flores M.D. [facility] Thank you for your consultation and allowing us to participate in the care of Danielle Montana and please do not hesitate to call us with any questions at: Office: [phone] Office Answering Service: [phone] Please feel free to contact me through [employer] Secure chat during the daytime hours, if no response after 5 minutes then call the answering service. This note was created with the assistance of a speech-recognition program. Although the intention is to generate a document that actually reflects the content of the visit, no guarantees can be provided that every mistake has been identified and corrected by editing. [employer] Work Phone: 10-18-2023 Plan of care note Problem: Pain Goal: Patient goal is pain score less than 4, able to rest, and participant in treatment plan as appropriate Description: INTERVENTIONS: 1. Encourage patient or legal petroleum products sales representative to report early pain and ask [...] per policy 9. Teach patient or legal petroleum products sales representative interventions for comforting Outcome: Progressing Note: [...] at the bedside 7. Instruct patient/ patient petroleum products sales representative about use of safety devices 8. Include patient/ patient petroleum products sales representative in decisions related to safety Outcome: Progressing Note: Evaluation of progress towards goal: PT is free of falls, hourly rounding is completed, area is kept clear. Problem: Knowledge Deficit Goal: Patient/patient petroleum products sales representative demonstrates understanding of disease process, treatment plan, medications, and discharge instructions Description: INTERVENTIONS 1. Complete learning assessment and assess knowledge base 2. Provide teaching at level of understanding 3. Provide teaching via preferred learning method(s) Outcome: Progressing Note: Evaluation of progress towards goal: Learning assessment and knowledge base assessed, teaching provided at an understandable level as needed. [facility] 10-18-2023 Plan of care note Problem: [...] at the bedside 7. Instruct patient/ patient petroleum products sales representative about use of safety devices 8. Include patient/ patient petroleum products sales representative in decisions related to safety Outcome: Progressing Note: Evaluation of progress towards goal: Pt oriented to own abilities. Adequate lighting, area clear of hazards. Problem: Knowledge Deficit Goal: Patient/patient petroleum products sales representative demonstrates understanding of disease process, treatment [...] Score of =/> 25 or indicated by [facility] Rehab Assessment Goal: Patient should be free from fall Description: Interventions: 1. [place] to environment 2. Hourly rounds addressing the [...] non-skid footwear 11. Teach patient and patient petroleum products sales representative to maintain environment for safety and [...] (cane, walker) within reach 19. Request patient petroleum products sales representative bring adaptive equipment/mobility aids from home or obtain and provide as needed 20. Consult pharmacy regarding effects of med's affecting mobility, cognition, and alternatives 21. Obtain physician order for PT if risk factors associated with mobility are present 22. Obtain physician order for OT as appropriate 23. Utilize diversional activities 24. Educate patient and patient petroleum products sales representative how to maintain a safe environment during visitation times (notify nurse prior to leaving bedside) 25. Consider appropriateness of medical or non-medical investigator 26. Set up voiding schedule as appropriate (every 2 hours) Outcome: Progressing Note: Evaluation of progress towards goal: Pt oriented to own abilities. Adequate lighting, area clear of hazards. [facility] 10-17-2023 History of Present illness Narrative 24 hour urine collection labeled and walked to lab by Deepa Chinchilla Stool sample as ordered collected, ;labeled, and sent to the lab. Images from the original note were not included. [facility] INTERNAL MEDICINE [facility] [address] [place] [id number] Hospital Medicine Progress Note Patient: Danielle Montana Date of : 1965 Room: 214/ PCP: PCP Not In System Admission date: [...] LIST Principal Problem: ERIN (acute kidney injury) ([facility]) Active Problems: Chronic obstructive pulmonary disease ([facility]) Hypertension ADORE (obstructive sleep apnea) Hypokalemia Edema of both lower extremities Mixed hyperlipidemia Abnormal fasting glucose LUTHER (iron deficiency anemia) Bipolar depression ([facility]) 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, psychotic disturbance, mood disturbance, or anxiety ([facility]) Iron deficiency anemia secondary to inadequate dietary [...] prelim negative Hypokalemia -Supplement today is 3.6 -cardiac rn -Monitor electrolytes daily replace per protocol. -continue [...] glucose -A1C 5.5 Bipolar -continue home buspar, Aimembalta Early onset Alzheimer's dementia -continue with Aricept DC planning: CC-A will follow nephrology's plan likely discharge tomorrow pending nephrology's input. Nataliia Cohen APRN-TELLY 10/17/2023 1:20 PM [facility] Internal Medicine 7AM-7PM (all facilities): Epic[employer] Rt or page through [employer]. 7PM-7AM ([facility] Psychiatry and Inpatient Rehab): EpicChat or page, [phone]. 7PM-7AM ([facility], [place], [facility], [place] and [facility] Re[facility]): EpicChat or page through [employer]. Nataliia Cohen APRN-NEWBORN PHOTOGRAPHER 10/17/23 1320 I have seen and evaluated [...] from the original note were not included. [facility] INTER[facility]IC[facility] [address] [facility] [id number] Hospital Medicine Progress Note Patient: Danielle Montana [...] LIST Principal Problem: ERIN (acute kidney injury) ([facility]) Active Problems: Chronic obstructive pulmonary disease ([facility]) Hypertension ADORE (obstructive sleep apnea) Hypokalemia Edema of both lower extremities Mixed hyperlipidemia Abnormal fasting glucose LUTHER (iron deficiency anemia) Bipolar depression ([facility]) 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, psychotic disturbance, mood disturbance, or anxiety ([facility]) ASSESSMENT & PLAN ERIN -Stopped IV hydration [...] leg dopplers Hypokalemia -Supplement today is 3.2 -cardiac rn -Monitor electrolytes daily replace per protocol. -continue [...] fasting glucose -check A1C Bipolar -continue home buspar, Cymbalta Early onset Alzheimer's dementia -continue with Aricept DC planning: CC-A will need at least another day of diuresis. BRUCE Maria 10/16/2023 7:56 AM [facility] Internal Medicine 7AM-7PM (all facilities): EpicChat or page through [employer]. 7PM-7AM ([facility], [facility] Psychiatry and Inpatient Rehab): EpicChat or page, [phone]. 7PM-7AM ([facility], [facility] [place], [facility], [facility] and [facility] Re[facility]): EpicChat or page through [employer]. BRUCE Maria 10/16/23 6376 I have seen and evaluated the patient, [...] 10/16/2023 1:58 PM documented in this encounter [facility] 10-17-2023 Hospital Discharge instructions Geetha Zamudio - 10/17/2023 11:47 AM EDT YOUR SCHEDULED APPOINTMENTS Please make note of this in your schedule as to not miss or call to reschedule. Thank you! Please call office to schedule a NEW patient appointment with Dr. Shawn Zamora MD Address: [address] [place] [id number] Pt. should bring the following to appointment; [...] For NEW patients, MD will not prescribe oil heaterman pain medication. documented in this encounter [employer] 10-17-2023 Progress note Formatting of t his [...] that there are some limitations compared to plrs-ug-uimn evaluations. We elected to proceed. Nephrology Daily [...] ratio is 4.7 g/g. SAUL is pending. Fqkq-aokxbp-otysiijc DNA is pending. Anca is pending. Glomerular [...] from last 7 days Lab Units 10/17/23 04410/16/23 1053 10/16/23 0432 10/15/23 1050 10/15/23 0522 [...] workup Irving Flores M.D. [facility] Thank you for your consultation and allowing us to participate in the care of Danielle Montana and please do not hesitate to call us with any questions at: Office: [phone] Office Answering Service: [phone] Please feel free to contact me through [employer] Secure chat during the daytime hours, if no response after 5 minutes then call the answering service. This note was created with the assistance of a speech-recognition program. Although the intention is to generate a document that actually reflects the content of the visit, no guarantees can be provided that every mistake has been identified and corrected by editing. [place] [facility] [employer] [facility] 10-17-2023 Plan of care note Problem: Pain Goal: Patient goal is pain score less than 4, able to rest, and participant in treatment plan as appropriate Description: INTERVENTIONS: 1. Encourage patient or legal petroleum products sales representative to report early pain and ask [...] per policy 9. Teach patient or legal petroleum products sales representative interventions for comforting Outcome: Progressing Note: [...] at the bedside 7. Instruct patient/ patient petroleum products sales representative about use of safety devices 8. Include patient/ patient petroleum products sales representative in decisions related to safety Outcome: Progressing Note: Evaluation of progress towards goal: Patient will remain safe and free from injury. Problem: Low Risk Fall Score Description: Flores Fall Score of 0 - 24 or indicated by [facility] Assessment Goal: Patient should be free from fall Description: Interventions: 1. [place] to environment 2. Hourly rounds addressing the [...] non-skid footwear 11. Teach patient and patient petroleum products sales representative to maintain environment for safety and engage in all aspects of fall prevention program Outcome: Progressing Note: Evaluation of progress towards goal: Patient will remain free from falls. [facility] [employer] [facility] 10-17-2023 Plan of care note Problem: Safety [...] at the bedside 7. Instruct patient/ patient petroleum products sales representative about use of safety devices 8. Include patient/ patient petroleum products sales representative in decisions related to safety Outcome: [...] self. Will assist in reposition when needed. [facility] 10-16-2023 Plan of care note Problem: Pain Goal: Patient goal is pain score less than 4, able to rest, and participant in treatment plan as appropriate Description: INTERVENTIONS: 1. Encourage patient or legal petroleum products sales representative to report early pain and ask [...] per policy 9. Teach patient or legal petroleum products sales representative interventions for comforting Outcome: Progressing Note: [...] at the bedside 7. Instruct patient/ patient petroleum products sales representative about use of safety devices 8. Include patient/ patient petroleum products sales representative in decisions related to safety Outcome: [...] hygiene technique 7. Identify and instruct patient/patient petroleum products sales representative in use of appropriate isolation precautions for identified infection/symptoms 8. Provide and discuss with patient/patient petroleum products sales representative on educational MDRO sheet 9. Encourage and monitor nutritional status daily and consult letter carrier if indicated 10. Implement neutropenic guidelines as [...] progress towards goal: Vitals WNL, patient is dijaguaring, nephro consulted. I/O's continued 10/16/20231650 by GAMAL Aden Note: Evaluation of progress towards goal: Vitals WNL, patient is diuresing, nephro consulted. I/O's continued. [facility] [employer] [facility] 10-16-2023 Progress note Formatting of t [...] that there are some limitations compared to urkm-da-tond evaluations. We elected to proceed. Nephrology Daily [...] chain ratio is 0.9 SAUL is pending. Vzet-snyfcz-wfkrivvq DNA is pending. Anca is pending. Glomerular [...] outpatient Irving Flores M.D. [facility] Thank you for your consultation and allowing us to participate in the care of Danielle Montana and please do not hesitate to call us with any questions at: Office: [phone] Office Answering Service: [phone] Please feel free to contact me through [employer] Secure chat during the daytime hours, if no response after 5 minutes then call the answering service. This note was created with the assistance of a speech-recognition program. Although the intention is to generate a document that actually reflects the content of the visit, no guarantees can be provided that every mistake has been identified and corrected by editing. [employer] [facility] 10-16-2023 Progress note Formatting of t his note is different from the original. Images from the original note were not included. DISCHARGE PLANNING NOTE Discharge Planning Assessment Danielle Montana Admit Status: Inpatient Meet: Unknown Readmission Risk: 15%. Date of Admission: 10/14/2023 GMLOS: not available at time of assessment Target Discharge Date: not available at time of assessment Discharge Planning Assessment completed at [facility]. Refueler identified self and role to the patient. Patient is agreeable to the assessment and discussion of a safe discharge plan. 10/16/23 0915 Discharge Disposition Discharge Disposition Home with Self Care County Information County of Residence [place] Patient Information Primary Caregiver Self Support System [...] of Residence Private residence Private Residence 1 [place] Residence Accessibility Steps into home Number of Steps 2 Home Care Services No Community Agencies Currently Utilized Food [place] (Patient states she does her own cooking [...] DC Assessment Completed: Yes Pharmacy: [facility] in [place], [place]. [facility] to use [facility]. PCP: [...] - Silvana Conklin RN 10/16/23 11:30 AM [facility] [employer] [facility] 10-15-2023 Plan of care note Problem: Pain Goal: Patient goal is pain score less than 4, able to rest, and participant in treatment plan as appropriate Description: INTERVENTIONS: 1. Encourage patient or legal petroleum products sales representative to report early pain and ask [...] per policy 9. Teach patient or legal petroleum products sales representative interventions for comforting Outcome: Progressing Note: Evaluation of progress towards goal: Pt able to report pain according to 0/10 pain scale. Medicating patient for pain per orders. T [facility] 10-15-2023 Plan of care note Problem: Pain Goal: Patient goal is pain score less than 4, able to rest, and participant in treatment plan as appropriate Description: INTERVENTIONS: 1. Encourage patient or legal petroleum products sales representative to report early pain and ask [...] per policy 9. Teach patient or legal petroleum products sales representative interventions for comforting Outcome: Progressing Note: Evaluation of progress towards goal: Pt able to report pain according to 0/10 pain scale. Medicating patient for pain per orders. Problem: Knowledge Deficit Goal: Patient/patient petroleum products sales representative demonstrates understanding of disease process, treatment [...] goal: Continue to assess for when appropriate. [facility] 10-15-2023 Consult note Formatting of th is [...] call us with any questions at: Office: [phone] Office Answering Service: [phone] Fran Wild M.D. This note was created [...] that there are some limitations compared to krbd-jf-hfsg evaluations. We elected to proceed. [employer] Work Phone: 10-15-2023 History and physical note Images from the original note were not included. [facility] INTERNAL MEDICINE Hospital Medicine History & Physical Patient: Danielle Montana Date of : 1965 Room: [facility] PCP: PCP Not In System Admission date: [...] medical history of Anxiety, Back pain, Cancer ([facility]), Cervical cancer ([facility]), Chest pain, Cluster headache, COPD (chronic obstructive pulmonary disease) ([facility]), Degenerative arthritis, Depression, Dry mouth, Emphysema, Emphysema of lung ([facility]), Fibromyalgia, Fibromyalgia, primary, GERD (gastroesophageal reflux disease), Heartburn, Hypertension, Joint pain, Morbid obesity ([facility]), Mouth sores, MRSA (methicillin resistant Staphylococcus aureus), Nausea, Obesity, Osteoporosis, PAD (peripheral artery disease) ([facility]), PVD (peripheral vascular disease) ([facility]), Sleep apnea, SOB (shortness of breath), Stiff [...] LIST Principal Problem: ERIN (acute kidney injury) ([facility]) Active Problems: Chronic obstructive pulmonary disease ([facility]) Hypertension ADORE (obstructive sleep apnea) Hypokalemia Edema of both lower extremities Mixed hyperlipidemia ASSESSMENT & PLAN ERIN: Gentle hydration. Nephrology consult. Monitor kidney function daily. Edema both lower extremities: Monitor daily weight and I&O. Echocardiogram ordered. Nephrology consult help with diuresis/fluid balance. Hypokalemia: Supplement. corner former. Monitor electrolytes daily replace per protocol. COPD: [...] in 1-2 days. Appreciate Nephrology input. Antione Santa APRN-TELLY, 10/15/2023 8:35 AM [facility] Internal Medicine 7AM-7PM (all facilities): EpicChat or page through Vocera. 7PM-7AM ([facility], [facility] Psychiatry and Inpatient Rehab): EpicChat or page, [phone]. 7PM-7AM ([facility], [place], [facility], [facility] and [facility]): EpicChat or page through Vocera. Physician Attestation: I have reviewed the above [...] above, unless otherwise noted. DRE JEWELL MD [employer] Work Phone: 10-15-2023 History and physical note Images from the original note were not included. [facility] INTERNAL MEDICINE Hospital Medicine History & Physical Patient: Danielle Montana Date of : 1965 Room: [facility] PCP: PCP Not In System Admission date: [...] medical history of Anxiety, Back pain, Cancer ([facility]), Cervical cancer ([facility]), Chest pain, Cluster headache, COPD (chronic obstructive pulmonary disease) ([facility]), Degenerative arthritis, Depression, Dry mouth, Emphysema, Emphysema of lung ([facility]-H[facility]), Fibromyalgia, Fibromyalgia, primary, GERD (gastroesophageal reflux disease), Heartburn, Hypertension, Joint pain, Morbid obesity ([facility]), Mouth sores, MRSA (methicillin resistant Staphylococcus aureus), Nausea, Obesity, Osteoporosis, PAD (peripheral artery disease) ([facility]), PVD (peripheral vascular disease) ([facility]), Sleep apnea, SOB (shortness of breath), Stiff [...] LIST Principal Problem: ERIN (acute kidney injury) ([facility]) Active Problems: Chronic obstructive pulmonary disease ([facility]) Hypertension ADORE (obstructive sleep apnea) Hypokalemia Edema of both lower extremities Mixed hyperlipidemia ASSESSMENT & PLAN ERIN: Gentle hydration. Nephrology consult. Monitor kidney function daily. Edema both lower extremities: Monitor daily weight and I&O. Echocardiogram ordered. Nephrology consult help with diuresis/fluid balance. Hypokalemia: Supplement. corner former. Monitor electrolytes daily replace per protocol. COPD: [...] in 1-2 days. Appreciate Nephrology input. Antione Santa APRN-TELLY, 10/15/2023 8:35 AM [facility] Internal Medicine 7AM-7PM (all facilities): EpicChat or page through Vocera. 7PM-7AM ([facility], [facility] Psychiatry and Inpatient Rehab): EpicChat or page, [phone]. 7PM-7AM ([facility], [facility], [facility]): EpicChat or page through Vocera. Physician Attestation: I have reviewed the above [...] DRE JEWELL MD documented in this encounter [facility] 10-15-2023 Plan of care note Problem: Knowledge Deficit Goal: Patient/patient petroleum products sales representative demonstrates understanding of disease process, treatment [...] goal: Continue to assess for when appropriate. [facility] 10-15-2023 Plan of care note Problem: Pain Goal: Patient goal is pain score less than 4, able to rest, and participant in treatment plan as appropriate Description: INTERVENTIONS: 1. Encourage patient or legal petroleum products sales representative to report early pain and ask [...] per policy 9. Teach patient or legal petroleum products sales representative interventions for comforting Outcome: Progressing Note: [...] at the bedside 7. Instruct patient/ patient petroleum products sales representative about use of safety devices 8. Include patient/ patient petroleum products sales representative in decisions related to safety Outcome: Progressing Note: Evaluation of progress towards goal: ongoing. Problem: Knowledge Deficit Goal: Patient/patient petroleum products sales representative demonstrates understanding of disease process, treatment plan, medications, and discharge instructions Description: INTERVENTIONS 1. Complete learning assessment and assess knowledge base 2. Provide teaching at level of understanding 3. Provide teaching via preferred learning method(s) Outcome: Progressing Note: Evaluation of progress towards goal: ongoing. [facility] 10-14-2023 Emergency department Triage note Bilateral hand/feet swelling, cough, headache [facility] 10-14-2023 Emergency department Note Bilateral hand/feet swelling, [...] History: Diagnosis Date Anxiety Back pain Cancer ([facility]) cervical cancer approx 1994 Cervical cancer ([facility]) Chest pain Cluster headache COPD (chronic obstructive pulmonary disease) ([facility]) Degenerative arthritis Depression Dry mouth Emphysema Emphysema of lung ([facility]) Fibromyalgia Fibromyalgia, primary GERD (gastroesophageal reflux disease) Heartburn Hypertension Joint pain Morbid obesity ([facility]) Mouth sores MRSA (methicillin resistant Staphylococcus aureus) Nausea Obesity Osteoporosis PAD (peripheral artery disease) ([facility]) PVD (peripheral vascular disease) ([facility]) Sleep apnea cpap SOB (shortness of breath) Stiff muscles Swollen ankles Weakness Past Surgical History: Procedure Laterality Date ABDOMINAL SURGERY BILATERAL SI JOINT INJECTION #1 Bilateral 11/07/2016 Performed by Mony Klein MD at [facility] COLONOSCOPY N/A 10/14/2019 Performed by Eben Lindsay DO at [facility] Coronary angiogram and left ventricular gram/pressure N/A 11/18/2016 Performed by Bobby Stanton MD at [facility] CARDIAC CATH LABS HYSTERECTOMY 06/22/1998 INCISION AND DRAINAGE and irrigation w/Drain LEFT HAND and left elbow Left 11/16/2015 Performed by Kt Ann MD at [facility] TOE AMPUTATION Travel Screening No screening recorded [...] Re-Evaluation ED Course ED Course as of 10/15/2340 Sat Oct 14, [id number] Pain Score: 8 [KM] ED Course User Index [KM] Alexis DO Lexi Clinical Impressions as of 10/15/2340 ERIN (acute kidney injury) ([facility]) Hypertensive urgency Hypokalemia Elevated brain natriuretic peptide (BNP) level MDM Medical Decision Making INanette (scribe) documented for Dr. Elliott. Chief Complaint: Leg swelling, arm swelling, nausea and a cough Differential Diagnosis includes but is not limited to: CHF exacerbation, hypertensive urgency, anemia, electrolyte derangement, UT. Plan of Care: Dr. Elliott ordered Troponin [...] from Dr. Elliott. Patient is pending admission. 41 -- Niya Robles [facility] accepts patient under Dr Jewell. Patient to [...] (366 lb) SpO2 98% BMI 71.48 kg/m PROGRESS NOTES The plan of care has been discussed with patient including today s results, in addition to providing specific details regarding counseling pertaining to the diagnosis and prognosis. All questions were answered at this time and they are agreeable with the plan - ADDITIONAL PROVIDER NOTES - At this time the patient has objective evidence of an acute process requiring hospitalization or inpatient management. Medication List None Diagnosis: 1. ERIN (acute kidney injury) ([facility]) 2. Hypertensive urgency 3. Hypokalemia 4. Elevated brain natriuretic peptide (BNP) level Disposition: Patient's disposition: Admit Patient's condition is stable. Provider Statement By electronically signing this emergency patient record, the Emergency Physician/[employer]/PA-C attests that all entries made into the electronic medical record by patrick Hall prior to the Physician/[employer]/PA-C signature reflect an accurate accounting of the evaluation and care rendered by that Emergency Physician/[employer]/PA-C. The Emergency Physician/[employer]/PA-C assumes full responsibility for those entries. The Emergency Physician/[employer]/PA-C also attests that any patient testing or treatment that was instituted by nursing staff in accordance to Emergency Department Preemptive Guidelines have been reviewed and unless so stated elsewhere in this patient chart, the Physician/[employer]/PA-C agrees with the testing and care provided. No Additional Attestations Nanette Hernandez 10/14/23 2210 Nanette Hernandez 10/14/23 2234 Alexis Elliott DO 10/14/23 2237 Nanette Hernandez 10/14/23 2240 Nanette Hernandez 10/14/23 2326 Nanette Hernandez 10/14/23 2358 Gillian Cordero MD 10/15/23 0043 Alexis Elliott DO 10/15/23 0401 documented in this encounter [facility] 10-14-2023 Physician Emergency department Note Images from [...] History: Diagnosis Date Anxiety Back pain Cancer ([facility]) cervical cancer approx 1994 Cervical cancer ([facility]) Chest pain Cluster headache COPD (chronic obstructive pulmonary disease) ([facility]) Degenerative arthritis Depression Dry mouth Emphysema Emphysema of lung ([facility]) Fibromyalgia Fibromyalgia, primary GERD (gastroesophageal reflux disease) Heartburn Hypertension Joint pain Morbid obesity ([facility]) Mouth sores MRSA (methicillin resistant Staphylococcus aureus) Nausea Obesity Osteoporosis PAD (peripheral artery disease) ([facility]) PVD (peripheral vascular disease) ([facility]) Sleep apnea cpap SOB (shortness of breath) Stiff muscles Swollen ankles Weakness Past Surgical History: Procedure Laterality Date ABDOMINAL SURGERY BILATERAL SI JOINT INJECTION #1 Bilateral 11/07/2016 Performed by Mony Klein MD at [facility] COLONOSCOPY N/A 10/14/2019 Performed by Eben Lindsay DO at [facility] Coronary angiogram and left ventricular gram/pressure N/A 11/18/2016 Performed by Bobby Stanton MD at [facility] CARDIAC CATH LABS HYSTERECTOMY 06/22/1998 INCISION AND DRAINAGE and irrigation w/Drain LEFT HAND and left elbow Left 11/16/2015 Performed by Kt Ann MD at [facility] TOE [facility] Travel Screening No screening recorded [...] of 10/15/23 0041 Sat Oct 14, 2023 2470 Pain Score: 8 [KM] ED Course User Index [KM] Alexis Elliott DO Clinical Impressions as of 10/15/23 0041 ERIN (acute kidney injury) (CMS-HCC) Hypertensive urgency Hypokalemia Elevated brain natriuretic peptide (BNP) level MDM Medical Decision Making INanette (scribe) documented for Dr. Elliott. Chief Complaint: Leg swelling, arm swelling, nausea and a cough Differential Diagnosis includes but is not limited to: CHF exacerbation, hypertensive urgency, anemia, electrolyte derangement, UT. Plan of Care: Dr. Elliott ordered Troponin [...] from Dr. Elliott. Patient is pending admission. 0042 -- Niya Robles [facility] accepts patient under Dr Jewell. Patient to [...] (366 lb) SpO2 98% BMI 71.48 kg/m PROGRESS NOTES The plan of care has been discussed with patient including today s results, in addition to providing specific details regarding counseling pertaining to the diagnosis and prognosis. All questions were answered at this time and they are agreeable with the plan - ADDITIONAL PROVIDER NOTES - At this time the patient has objective evidence of an acute process requiring hospitalization or inpatient management. Medication List None Diagnosis: 1. ERIN (acute kidney injury) ([facility]) 2. Hypertensive urgency 3. Hypokalemia 4. Elevated brain natriuretic peptide (BNP) level Disposition: Patient's disposition: Admit Patient's condition is stable. Provider Statement By electronically signing this emergency patient record, the Emergency Physician/[employer]/PA-C attests that all entries made into the electronic medical record by patrick Hall prior to the Physician/[employer]/PA-C signature reflect an accurate accounting of the evaluation and care rendered by that Emergency Physician/[employer]/PA-C. The Emergency Physician/[employer]/PA-C assumes full responsibility for those entries. The Emergency Physician/[employer]/PA-C also attests that any patient testing or treatment that was instituted by nursing staff in accordance to Emergency Department Preemptive Guidelines have been reviewed and unless so stated elsewhere in this patient chart, the Physician/[employer]/PA-C agrees with the testing and care provided. No Additional Attestations Nanette Hernandez 10/14/23 2210 Nanette Hernandez 10/14/23 2234 Alexis Elliott DO 10/14/23 2237 Nanette Hernandez 10/14/23 2240 Nanette Hernandez 10/14/23 2326 Nanette Hernandez 10/14/23 2358 Gillian Cordero MD 10/15/23 0043 Alexis Elliott DO 10/15/23 0401 [employer] Work Phone: 02-09-2022 Note PROCEDURE: XR ANKLE [...] by: LO COSTA Date: 2022-02-09 06:49 [facility] 02-09-2022 Note PROCEDURE: XR ANKLE RT MIN [...] by: LO COSTA Date: 2022-02-09 06:49 [facility] Evaluation note Includes: Assessments for all patient encountersNo Assessments Recorded [facility] Work Phone: Evaluation note Diagnosis ARSH (generalized anxiety disorder) ([facility]) Generalized anxiety disorder documented [facility] this encounter [facility] Diagnosis Chronic obstructive pulmonary disease with acute exacerbation ([facility])- Primary Chronic rhinitis Bipolar depression ([facility]) Bipolar I disorder, most recent episode (or current) depressed, unspecified ADORE (obstructive sleep apnea) Obstructive sleep apnea (adult) (pediatric) Pulmonary emphysema, unspecified emphysema type ([facility]) [facility] Diagnosis ERIN (acute kidney injury) ([facility])- Primary ERIN (acute kidney injury) ([facility]) Hypertensive urgency Hypokalemia Hypopotassemia Elevated brain natriuretic peptide (BNP) level Chronic obstructive pulmonary disease ([facility]) Hypertension Unspecified essential hypertension Hypokalemia Hypopotassemia ADORE (obstructive sleep apnea) Obstructive sleep apnea (adult) (pediatric) Edema of both lower extremities Mixed hyperlipidemia Abnormal fasting glucose LUTHER (iron deficiency anemia) Unspecified iron deficiency anemia Bipolar depression (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- Primary [facility] Diagnosis ERIN (acute kidney injury) ([facility] Primary 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 ([facility]) Hypovitaminosis D Unspecified vitamin D deficiency Hypomagnesemia Disorders of magnesium metabolism Primary hypertension Unspecified essential hypertension Nephrotic range proteinuria Proteinuria [facility] Narrative History of Present Illness not supported for this document type No History of Present Illness [facility] Work Phone: Instructions Instructions not supported for this document type No Instructions [facility] Work Phone: InstructionsNot on filedocumented in this [...] Outcomes for active Goals No Outcomes [facility] Work Phone: reason for referral (narrative)* Consultation (Routine) - Pending Review Specialty Diagnoses / Procedures Referred By Juan fonseca Referred To Contact Pulmonary Disease Diagnoses Chronic obstructive pulmonary disease with acute exacerbation ([facility]) ADORE (obstructive sleep apnea) Pulmonary emphysema, unspecified emphysema type ([facility]) Procedures IA OFFICE/OUTPATIENT [facility] MDM 60 MINUTES Erica Pompa NP [address] [place] [address] Referral ID Status Reason Start Date Expiration Date Visits Requested Visits Authorized [id number] Pending Review Specialty Services Required 01/31/2024 07/29/2024 1 1 [facility] Narrative - Reported Review of Systems not supported for this document type No Review of [facility] Work Phone: History of Past Illness Name [...] FoundDocuments on File Type Date Recorded Patient Research Study Assistant Expl anation ACP-Advance Directive ACP-Power of Senior [employer] Specialist Documents on File Type Date Recorded Patient Research Study Assistant Expl anation Durable Power of Senior [employer] Specialist 01/12/2021 1:47 PM Living Will 01/12/2021 [...] section and content) DATE CREATED AUTHOR 10/23/2017 [facility] DATE CREATED AUTHOR AUTHOR'S ORGANIZ ATION 08/01/2018 [facility] DATE CREATED AUTHOR AUTHOR'S ORGANIZ ATION 08/11/2018 [employer] DATE CREATED AUTHOR AUTHOR'S ORGANIZ ATION 01/23/2020 [facility] DATE CREATED AUTHOR AUTHOR'S ORGANIZ ATION 04/19/2022 [facility] DATE CREATED AUTHOR AUTHOR'S ORGANIZ ATION 01/14/2024 [facility] DATE CREATED AUTHOR AUTHOR'S ORGANIZ ATION 01/23/2024 [facility] DATE CREATED AUTHOR AUTHOR'S ORGANIZ ATION 02/02/2024 [facility] d[facility] Specialists [facility] DATE CREATED AUTHOR AUTHOR'S ORGANIZ ATION 12/27/2024 [facility] Reason for Visit (unrecogniz ed section and content) Reason Onset Date Comments Med Refill 01/29/2024 Reason Comments Cough Reason Comments Leg Swelling Arm Swelling Nausea Cough Specialty Diagnoses / Procedures Referred By Juan fonseca Referred To Contact Diagnoses Hypokalemia Chest pain ERIN (acute kidney injury) (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 Procedures INJECTION,RITUXIMAB-PVVR,BI OSIMILAR,(RUXIENCE),10MG INJECTION, RITUXIMAB-ABBS,BIOSIMILAR,( TRUXIMA),10MG Wanda Mendez MD [address] [place] [address] Pfo Med Onc [address] [place] [address] Referral ID Status Reason Start Date Expiration Date V isits Requested Visits Authorized [id number] Authorized 11/13/2023 11/09/2024 1 4 Reason Comments Med Refill Care Teams (unrecognized sec tion and content) Obstetrician Gynecologist Relationship Specialty Start Date End Date Vu Rivera MD [address] [place] [address] PCP - General Family Medicine 12/12/23 Erica Pompa NP [address] [place] [address] Nurse Practitioner Family Medicine 12/12/23 Obstetrician Gynecologist Relationship Specialty Start Date End Date Vu Rivera MD [address] [place] [phone] PCP - General Family Medicine 12/12/23 Erica Pompa NP [address] [place] [address] Nurse Practitioner Family Medicine 12/12/23 Obstetrician Gynecologist Relationship Specialty Start Date End Date Vu Rivera MD [address] [place] [phone] PCP - General Family Medicine 12/12/23 Erica Pompa NP [address] [place] [address] Nurse Practitioner Family Medicine 12/12/23 Obstetrician Gynecologist Relationship Specialty Start Date End Date Pcp, [place] [address] PCP - General Family Medicine 10/14/23 Obstetrician Gynecologist Relationship Specialty Start Date End Date Shawn Zamora MD [address] [place] [address] PCP - General Family Medicine 10/19/23 Obstetrician Gynecologist Relationship Specialty Start Date End Date Shawn Zamora MD [address] [place] [address] PCP - General Family Medicine 10/19/23 Obstetrician Gynecologist Relationship Specialty Start Date End Date Shawn Zamora MD [address] [place] [id number] PCP - General Family Medicine 10/19/23 Obstetrician Gynecologist Relationship Specialty Start Date End Date Shawn Zamora MD [address] [place] [address] PCP - General Family Medicine 10/19/23 Obstetrician Gynecologist Relationship Specialty Start Date End Date Shawn Zamora MD [address] [place], [place] [phone] PCP - General Family Medicine 10/19/23 Obstetrician Gynecologist Relationship Specialty Start Date End Date Shawn Zamora MD [address] [place], [place] [phone] PCP - General Family Medicine 10/19/23 Obstetrician Gynecologist Relationship Specialty Start Date End Date Shawn Zamora MD [address] [place] [address] PCP - General Family Medicine 10/19/23 Scheduled [...] Zapata RN) 0832 (Given - Provider: Leda Patricia RN)2210 (Given - Provider: Emily Strickland RN) 0836 (Given - Provider: Shelby Lee RN)2028 (Given - Provider: Shannon Becerril RN) cyanocobalamin (VITAMIN B-12) injection 1,000 mcg (COMPLETED) 1,000 mcg, intramuscular, Once, On Mon10/16/23 at 1530, For 1 dose 1532 (Given - Provider: Saul Gates RN) cyanocobalamin tablet 1,000 mcg 1,000 mcg, oral, Daily, First dose on Mon10/16/23 at 1530 1532 (Given - Provider: Saul Gates RN) 0832 (Given - Provider: Leda Patricia RN) 0836 (Given - Provider: Shelby Lee, GAMAL) donepeziL (ARICEPT) tablet 5 mg 5 mg, oral, Nightly, First dose on 10/15/23 at 2200, Look-alike/sound-alike medication - verify indication for use. 0 (Given - Provider: Sara Zapata RN) 2208 (Given - Provider: Emily Strickland RN) 2027 (Given - Provider: Shannon Becerril RN) DULoxetine (CYMBALTA) DR capsule 60 mg 60 mg, oral, Daily, First dose on 10/15/23 at 0900, Look-alike/sound-alike medication - verify indication for use. Swallow whole-do not crush or chew. Although the fitting supervisor does not recommend opening the capsule to facilitate administration, the contents of capsule may be sprinkled on applesauce or in apple juice and swallowed (without chewing) immediately; do not sprinkle contents on chocolate pudding. 0907 (Given - Provider: Saul Gates RN) 0831 (Given - Provider: Leda Patricia RN) 0836 (Given - Provider: Shelby Lee RN) ferrous sulfate tablet 325 mg 325 mg, oral, Daily with breakfast, First dose on Mon10/16/23 at 0800, Give ferrous sulfate 2 hours before or 4 hours after antacids. 0907 (Given - Provider: Saul Gates RN) 0831 (Given - Provider: Leda Patricia RN) 0836 (Given - Provider: Shelby Lee RN) ferumoxytoL (FERAHEME) 510 mg in sodium chloride [...] Sara Zapata RN)1409 (Given - Provider: Leda Patricia RN)2211 (Given - Provider: Emily Strickland RN) 0524 (Given - Provider: Emily Strickland RN)1318 (Given - Provider: Shelby Lee RN)2028 (Given - Provider: Shannon Becerril RN) heparin [...] Leola Friend RN)1336 (Given - Provider: Saul Gates, GAMAL)2252 (Given - Provider: Sara Zapata RN) 0636 (Given - Provider: Sara Zapata RN)1408 (Given - Provider: Leda Patricia, RN)2211 (Given [...] by Angelina HUANG)1318 (Given - Provider: Shelby Lee, GAMAL)2145 (Given - Provider: Shannon Becerril RN) hydrALAZINE (APRESOLINE) tablet 50 mg (CANCELED) 50 mg, oral, Every 8 hours scheduled, First dose on 10/15/23 at 1030, Hold for systolic blood pressure less than 110 Look-alike/sound-alike medication - verify indication for use. 0556 (Given - Provider: Leola Friend RN)1336 (Given - Provider: Saul Gates, GAMAL) magnesium oxide (MAGOX) tablet 400 mg 400 mg, oral, 2 times daily, First dose on 10/15/23 at 1030 0907 (Given - Provider: Saul Gates RN)2250 (Given - Provider: Sara Zapata RN) 0831 (Given - Provider: Leda Patricia, GAMAL)2209 (Given - Provider: Emily Strickland RN) 0836 (Given - Provider: Shelby Lee, GAMAL)202 (Given - Provider: Shannon Becerril RN) methylPREDNISolone [...] use. 0831 (Given - Provider: Leda Patricia RN)2210 (Given - Provider: Emily Strickland RN) 0836 [...] Shelby Lee, GAMAL)2027 (Given - Provider: Shannon Becerril, GAMAL) rosuvastatin (CRESTOR) tablet 10 mg 10 mg, oral, Daily, First dose on Mon10/15/23 at 0900, Look-alike/sound-alike medication - verify indication for use. 0909 (Given - Provider: Saul Gates RN) 0832 (Given - Provider: Leda Patricia RN) 0837 (Given - Provider: Shelby Lee, GAMAL) [...] RN) 0837 (Given - Provider: Shelby Lee, GAMAL)2027 (Given - Provider: Shannon Becerril RN) PRN Medication Order 10/16/2023 10/17/2023 10/18/2023 acetaminophen (TYLENOL) tablet 650 mg 650 mg, oral, Every 6 hours PRN, mild pain - pain scale 1-3, headaches, temperature greater than 38 C, Starting on Mon10/15/23 at 0211 0230 (Given - Provider: Brooke Kulkarni RN) 2229 (Given - Provider: Emily Strickland RN) 0525 (Given - Provider: Emily Strickland RN)214 (Given - Provider: Shannon Becerril, GAMAL) calcium gluconate 3,000 mg in sodium chloride [...] calcium 3.4 mg/dL or less, Starting on Mon10/15/23 at 1021, IV administration of calcium via a central or deep vein is preferred. Avoid administration in small hand veins. VESICANT (RED) calcium gluconate IVPB 2000 mg/100 mL (20 mg/mL premix) 2,000 mg, intravenous, at 50 mL/hr, Administer over 2 Hours, As needed, ionized calcium 4 to 4.3 mg/dL, Starting on Mon10/15/23 at 1021, IV [...] treatment. 0619 (Rate/Dose Verify - Provider: Leola Friend RN)0712 (Stop Bag - Provider: Saul Gates RN) [...] Every 4 hours PRN, high blood pressure, [phone], Starting on 10/15/23 at 1020, Look-alike/sound-alike medication [...] \[email or web address]\epic \EPIC_Reference\Orders\Re spiratory Care Guidelines\CPG Bronchodilator 2020.pdf 0725 (Not Given - Provider: Jessica Koehler RCP - Reason: Patient/family refused - Comment: Patient denies need for prn neb at this time.)1221 (Given - Provider: Jessica Koehler RCP) 1119 (Given - Provider: Jessica Koehler RCP)2037 (Given - Provider: Romelia Miller RCP) 102 (Given - Provider: Jessica Koehler RCP)2147 (Given - Provider: Romelia Miller RCP) kit for prep of Pl-25t-ksheoks 2.5 mg recon soln 5 millicurie (COMPLETED) [...] level 0.45 to 0.5 mmol/L., Starting on Mon10/15/23 at 0208, Recheck magnesium [...] at 0211 0752 (Given - Provider: Shelby Lee, GAMAL) potassium chloride (KLOR-CON M 20) CR tablet 20-60 mEq 20-60 mEq, oral, As needed, potassium supplementation, Starting on Mon10/15/23 at 1021, Progress to oral potassium replacement [...] potassium is more than 4.5, Starting on 10/15/23 at 1021, If dose administered, recheck [...] line care after IVPB administration, Starting on 10/15/23 at 0208 1331 (New Bag - [...] potassium is more than 4.5, Starting on 10/15/23 at 1021, If dose administered, recheck [...] BE BASED ON THE PRIMARY CLINICAL RECORDS. [employer] provides no warranty or guarantee of the accuracy or completeness of information in this document.
--- NOTE | 2025-01-16 18:04 | XR_ITS ---
[address] [address] Patient Name: DANIELLE MONTANA MRN: [id number] date: 1965 Sex: F Assigned Patient Location: ER Current Patient Location: ED.MAIN Accession/Order Number: [id number] Exam Date: 01/16/2025 18:32 Report Date: 01/16/2025 18:51 At the request of: LIANA SMITH MD Procedure: XR chest 1V PA CHEST: CLINICAL HISTORY: CP COMPARISON: CT chest 04/08/2024 Borderline cardiac silhouette. No definite disease effusion or pneumothorax. XR/XR chest 1V IMPRESSION: NO DEFINITE ACUTE PLEURAL-PARENCHYMAL DISEASE. Impression dictated by: Nasir Pack M.D. 01/16/2025 6:51 PM Dictation Location: [place] [address] Electronically authenticated by: [id number] Y Date: 01/16/2025 18:51
--- NOTE | 2025-01-16 18:04 | ECG_ITS ---
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 Measurements Intervals [place] Rate: 61 P: 51 SC: 180 QRS: -14 QRSD: 86 T: 35 QT: 422 QTc: 425 Interpretive Statements 1100 Sinus rhythm Poor R wave progression Abnormal ECG Compared to ECG 04/08/2024 11:31:35 Left-axis deviation no longer present Electronically Signed On 01-17-2025 7:35:23 EDT by EDUARDO JOSHI M.D.
--- NOTE | 2025-01-16 18:11 | ED.GENADUL1 ---
HPI HPI - General Adult General Chief complaint: Chest Pain Stated complaint: CHEST PAIN, SOB,FEET SWOLLEN Time Seen by Provider: 01/16/25 17:36 Source: patient Mode of arrival: walk-in History of Present Illness HPI narrative: 59-year-old female presents for chest pain and shortness of breath and swelling in her ankles and feet. Started yesterday. The pain feels like a pressure and it last for about 10 minutes at a time. States she had a heart catheterization a month ago but does not know the results of it and does not know if she got any stents. Fever or productive cough. She took extra water pill today but it did not seem to help. Related Data Home Medications ?Medication ?Instructions ?Recorded ?Confirmed albuterol sulfate 90 mcg/actuation 2 puff inhalation Q6H 03/23/24 01/16/25 aerosol inhaler buspirone 15 mg tablet 15 mg PO BID 03/23/24 01/16/25 carvedilol 25 mg tablet 25 mg PO Q12H 03/23/24 01/16/25 donepezil 10 mg tablet 10 mg PO DAILY 03/23/24 01/16/25 duloxetine 60 mg capsule,delayed 60 mg PO DAILY 03/23/24 01/16/25 release ferrous sulfate 325 mg (65 mg 325 mg PO DAILY 03/23/24 01/16/25 iron) tablet (FeroSul) bumetanide 1 mg tablet 1 mg PO DAILY 04/08/24 01/16/25 lamotrigine 100 mg tablet 100 mg PO DAILY 04/08/24 01/16/25 cetirizine 10 mg tablet 10 mg PO .QD 04/09/24 01/16/25 cholecalciferol (vitamin D3) 125 5,000 unit PO .QD 04/09/24 01/16/25 mcg (5,000 unit) tablet Previous Rx's ?Medication ?Instructions ?Recorded amlodipine 5 mg tablet 10 mg (2 x 5 mg) PO QD 30 days #30 04/10/24 tabs losartan 50 mg tablet 50 mg PO QD 30 days #30 tabs 04/10/24 Allergies Allergy/AdvReac Type Severity Reaction Status Date / Time codeine Allergy Intermediate Nausea Verified 01/16/25 17:35 pregabalin (From Lyrica) Allergy Intermediate Rash Verified 01/16/25 17:35 sulfamethoxazole (From Allergy Intermediate Rash Verified 01/16/25 17:35 Bactrim) trimethoprim (From Bactrim) Allergy Intermediate Rash Verified 01/16/25 17:35 Opioid HPI Opioid Management Most Recent Opioid Data: Last Pain Scale 9 Today, 17:37 Last ORT Total Score 14 04/08/24, 15:06 Last ORT Risk Category High Risk 04/08/24, 15:06 Review of Systems ROS Narrative A ten point review of systems is negative except as noted above. [facility] Medical History (Updated 01/16/25 @ 18:38 by Emmanuel Bah MD) Morbid obesity with BMI of 60.0-69.9, adult ?E66.01 - Morbid (severe) obesity due to excess calories (ICD-10) ?Z68.44 - Body mass index [BMI] 60.0-69.9, adult (ICD-10) Iron deficiency anemia ?D50.9 - Iron deficiency anemia, unspecified (ICD-10) Primary hypertension ?I10 - Essential (primary) hypertension (ICD-10) COPD (chronic obstructive pulmonary disease) ?J44.9 - Chronic obstructive pulmonary disease, unspecified (ICD-10) Tobacco abuse ?Z72.0 - Tobacco use (ICD-10) Social History Smoking status: Current every day smoker Highest level of school completed/degree received: 12th grade, no diploma Little interest or pleasure in doing things: not at all Feeling down, depressed, or hopeless: not at all Exam Narrative Exam Narrative: Nurses note and vital signs reviewed and patient is not hypoxic. General:The patient appears in no respiratory distress Skin:Warm, dry, no pallor noted.There is no rash noted. Head:Normocephalic, atraumatic Eye: Normal conjunctiva, no drainage Ears, Nose, Mouth, and Throat: oral mucosa is moist. Nares patent. Cardiovascular:Regular Rate and Rhythm Respiratory:Patient is in no distress, no accessory muscle use, lungs are clear to auscultation, no wheezing, rales or rhonchi GI: Soft and nontender Musculoskeletal: Lateral ankle and foot edema present Neurological:A&O normal speech Psychiatric:Cooperative Constitutional Vital Signs, click to edit/add: Last Vital Signs Temp 97.7 F 01/16/25 17:37 Pulse 66 01/16/25 17:37 Resp 20 01/16/25 17:37 BP 176/83 H 01/16/25 17:37 Pulse Ox 98 01/16/25 17:58 O2 Del Method Room Air 01/16/25 17:58 Course Vital Signs Vital signs: Vital Signs Temperature 97.7 F 01/16/25 17:37 Pulse Rate 66 01/16/25 17:37 Respiratory Rate 20 01/16/25 17:37 Blood Pressure 176/83 H 01/16/25 17:37 Pulse Oximetry 98 01/16/25 17:37 Oxygen Delivery Method Room Air 01/16/25 17:37 Temperature 97.7 F 01/16/25 17:37 Pulse Rate 66 01/16/25 17:37 Respiratory Rate 20 01/16/25 17:37 Blood Pressure 176/83 H 01/16/25 17:37 Pulse Oximetry 98 01/16/25 17:58 Oxygen Delivery Method Room Air 01/16/25 17:58 Medical Decision Making MDM Narrative Medical decision making narrative: Troponin is negative with a normal BNP as well. Chest x-ray is pending. Second troponin is ordered and the patient is signed out to Dr. Stallworth at change of shift. Differential Diagnosis Differential Diagnosis: STEMI, NSTEMI, CHF, peripheral edema Lab Data Lab results reviewed: Yes I reviewed the patient's lab results Labs: Lab Results 01/16/25 Range/Units 17:51 WBC 8.5 (4.0-11.0) 10^3/uL RBC 4.33 (4.20-5.40) 10^6/uL Hgb 12.3 (12.0-16.0) g/dL Hct 38.3 (36.0-48.0) % MCV 88.5 (81.0-99.0) fL MCH 28.4 (26.7-34.0) pg MCHC 32.1 (29.9-35.2) g/dL RDW 13.7 (11.0-15.0) % Plt Count 328 (150-450) 10^3/uL MPV 10.3 (9.5-13.5) fL Neut % (Auto) 56.2 (43.0-75.0) % Lymph % (Auto) 30.7 (20.5-60.0) % [place] % (Auto) 8.7 (1.7-12.0) % Eos % (Auto) 3.3 (0.9-7.0) % Baso % (Auto) 0.7 (0.2-2.0) % Neut # (Auto) 4.8 (1.4-6.5) 10^3/uL Lymph # (Auto) 2.6 (1.2-3.8) 10^3/uL [place] # (Auto) 0.7 (0.3-0.8) 10^3/uL Eos # (Auto) 0.3 (0.0-0.7) 10^3/uL Baso # (Auto) 0.1 (0.0-0.1) 10^3/uL Abs Immat Gran (auto) 0.03 (0.00-0.03) 10^3/uL Imm/Tot Granulo (auto) 0.4 (0.0-0.5) % Sodium 142 (136-145) mmol/L Potassium 4.3 (3.5-5.1) mmol/L Chloride 105 (98-107) mmol/L Carbon Dioxide 28.5 (21.0-32.0) mmol/L Anion Gap 12.8 BUN 27.0 H (7.0-18.0) mg/dL Creatinine 1.58 H (0.55-1.02) mg/dL Est GFR ( Amer) 40 L (>=60 mL/min/1.73m^2) Est GFR (Non-Af Amer) 33 L (>=60 mL/min/1.73m^2) BUN/Creatinine Ratio 17.1 Glucose 105 (74-106) mg/dL Calcium 9.3 (8.5-10.1) mg/dL Troponin I High Sens 5.8 (4.0-51.3) pg/mL NT-Pro-B Natriuret Pep 826.0 (<=900.0) pg/mL ECG Data Attestation: I personally reviewed and interpreted this ECG as follows: (KG on my interpretation shows normal sinus rhythm with rate of 61 and no acute change) Discharge Plan Discharge Patient Disposition: Still a Patient
[2025-01-16 18:15] LABS: Hematocrit 38.3 % (36.0-48.0); Hemoglobin 12.3 g/dL (12.0-16.0); Immature Granulocytes Abs Auto 0.03 10^3/uL (0.00-0.03); Immature Granulocytes Pct Auto 0.4 % (0.0-0.5); Lymphocytes Absolute Auto 2.6 10^3/uL (1.2-3.8); Mean Corpuscular HGB Conc 32.1 g/dL (29.9-35.2); Mean Corpuscular Hemoglobin 28.4 pg (26.7-34.0); Mean Corpuscular Volume 88.5 fL (81.0-99.0); Platelet Count 328 10^3/uL (150-450); Red Blood Count 4.33 10^6/uL (4.20-5.40); White Blood Count 8.5 10^3/uL (4.0-11.0)
[2025-01-16 18:28] LABS: Anion Gap 12.8; Blood Urea Nitrogen 27.0 mg/dL (7.0-18.0); Calcium 9.3 mg/dL (8.5-10.1); Carbon Dioxide 28.5 mmol/L (21.0-32.0); Chloride 105 mmol/L (98-107); Estimated GFR (African America 40 (>=60 mL/min/1.73m^2); Estimated GFR (Non-African Ame 33 (>=60 mL/min/1.73m^2); Glucose 105 mg/dL (74-106); Potassium 4.3 mmol/L (3.5-5.1); Sodium 142 mmol/L (136-145)
[2025-01-16 18:31] LABS: NT Pro B Type Natriuretic Pept 826.0 pg/mL (<=900.0)
[2025-01-16 20:54] LABS: Glucose Urine UA 250 mg/dL (NEGATIVE)
[2025-01-16 21:00] LABS: Cast Seen? SEEN #/LPF (NONE SEEN); Crystals Seen? None Seen #/HPF (None Seen); Urine Culture Indicated NO
== END 2025-01-16 21:26 | disposition home or self-care (01) ==
PROVIDERS: Emergency Medicine; Emergency Provider Internal Medicine; PCP Nurse Practitioner Family
DX: R07.89 Other chest pain (principal); R60.0 Localized edema; R06.02 Shortness of breath; F17.200 Nicotine dependence, unspecified, uncomplicated; N18.9 Chronic kidney disease, unspecified
CPT/HCPCS: 36415; 71045; 80048; 81001; 83880; 84484; 85025; 93005; 99285

== ENCOUNTER 2025-01-29 04:22 | Inpatient (IN) | payer OTHER, SELFPAY ==
[2025-01-29] VITALS (49 sets, daily range): BP systolic 127–154; BP diastolic 56–92; PULSE 54–88; TEMP 36.6–37.2; O2SAT 78–100; BMI 58.6; BMI 65.8
--- NOTE | 2025-01-29 04:50 | XR_ITS ---
The [address] [address] Patient Name: DANIELLE MONTANA MRN: [id number] date: 1965 Sex: F Assigned Patient Location: ER Current Patient Location: ED.MAIN Accession/Order Number: [id number] Exam Date: 01/29/2025 04:58 Report Date: 01/29/2025 07:36 At the request of: QUYNH ARCHER MD Procedure: XR chest 2V PA AND LATERAL CHEST: CLINICAL HISTORY: short of breath COMPARISON: 01/16/[address] 04/08/2024 Evaluation is slightly limited by large body habitus. There is elevation of the right hemidiaphragm where there may be adjacent atelectasis. Mild interstitial changes are again seen. There is no developing consolidation, effusion or pneumothorax. The heart is enlarged. The hilar and mediastinal silhouettes are within normal limits. The visualized bony thorax is intact. XR/XR chest 2V IMPRESSION: NO SIGNIFICANT CHANGE FROM THE PRIOR Impression dictated by: Mami Rodrigez M.D. 01/29/2025 7:36 AM Dictation Location: [place] [address] Electronically authenticated by: [id number] Y Date: 01/29/2025 07:36
[2025-01-29 04:54] LABS: Hematocrit 34.4 % (36.0-48.0); Hemoglobin 11.2 g/dL (12.0-16.0); Immature Granulocytes Abs Auto 0.01 10^3/uL (0.00-0.03); Immature Granulocytes Pct Auto 0.1 % (0.0-0.5); Lymphocytes Absolute Auto 0.6 10^3/uL (1.2-3.8); Mean Corpuscular HGB Conc 32.6 g/dL (29.9-35.2); Mean Corpuscular Hemoglobin 28.6 pg (26.7-34.0); Mean Corpuscular Volume 88.0 fL (81.0-99.0); Platelet Count 255 10^3/uL (150-450); Red Blood Count 3.91 10^6/uL (4.20-5.40); White Blood Count 7.3 10^3/uL (4.0-11.0)
--- NOTE | 2025-01-29 04:55 | PC.NURSE ---
this patient updated of her plan of care, chest x-ray, blood draw and a breathing treatment.
--- OUTSIDE RECORDS SUMMARY | 2025-01-29 05:02 | XMS_ITS | CCD ---
Author Organization [facility] CliniSyak Care Team Providers Care Paint Spray Tender Name Role Phone Tanja, Leda Unavailable Unavailable Unavailable Unavailable Unavailable Unavailable Unavailable Unavailable Tanja, Leda Unavailable Unavailable Tanja, Leda Unavailable Unavailable Unavailable Unavailable Unavailable Heath Kirkpatrick Attending Gisselle vailable Heath Kirkpatrick Referring Gisselle vailable Rumschlag, Mignon Primary Care Provider [phone] TIM SHARMA Referring Unavailab le RUMSCHLAG, MIGNON Primary Care Unavailable RAVTIM ORTIZ Referring Unavailab le RUMSCHLAG, MIGNON Primary Care Unavailable ALLAN SHARMAMPSAGER Referring Unavailab le RUMSCHLAG, MIGNON Primary Care Unavailable Tanja COLD PATCHER, Leda Unavailable NICOLE, DR UV Novoa Attending Unavailable NICOLE, DR VU Novoa Admitting Unavailable [facility] Primary Care Unavailable LIYAH, DR EBEN Couch Consulting Unavailblanca KAT, DR FRIEDA Tobar Consulting Unavailblanca e JULISSA, DR LO Hdz Consulting Unavailable NICOLE, DR VU Novoa Consulting Unavailable LATONIA, DR KHAN Consulting Unavailable NANIC BEEBE Attending Unavailable NANCI BEEBE Admitting Unavailable JULISSA, DR LO Hdz Consulting Unavailable [facility] Primary Care Unavailable NANCI BEEBE Consulting Unavailable QUYNH ARCHER Attending Unavailable QUYNH ARCHER Admitting Unavailable [facility] Primary Care Unavailable QUYNH ARCHER Consulting Unavailable [...] Attending UnavailVu Arguello MD Primary Care Provider [phone] Erica Pompa NP Unavailable [phone] Pcp, Not In System Primary Care Provider [...] Nausea And Vomiting, GI intolerance, Vomiting Health [facility] (4 sources) pregabalin; Translations: [Lyrica] Drug Allergy Altered Mental State [facility] (4 sources) sulfamethoxazole / trimethoprim; Translations: [Bactrim] Drug Allergy [facility] (4 sources) -No Environmental Allergies; Translations: [-No Environmental Allergies] Allergy to substance (disorder) [facility] (2 sources) -No Known Food Allergies Allergy to substance (disorder) [facility] (3 sources) NSAIDs Propensity to adverse reactions to drug 02-24-20 15 Other (See Comments) [place], [place] (20 sources) pregabalin; Translations: [PREGABALIN] Drug Allergy 01-19-20 12 Other (See Comments), Unknown [place] (20 sources) Sulfamethoxazole / Trimethoprim; Translations: [SULFAMETHOXAZOLE-T RIMETHOPRIM] Drug Allergy 11-15-19 16 H[place] (1 source) pregabalin Drug Allergy 12-31-[address] [facility] (1 source) Sulfamethoxazole / Trimethoprim Drug Allergy 04-15-[address] 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 take 1 tablet by [facility] once daily donepezil (ARICEPT) 10 MG tablet [...] Active Start: 10-26-2023 take 1 capsule by [facility] in the morning DULoxetine (CYMBALTA) 30 mg capsule Take 1 capsule (30 mg total) by mouth in the morning. 30 capsule 10/26/2023 Active Start: 07-19-2018 DULoxetine HCl 30MG Oral Capsule, delayed-release particles 07/19/2018 Provider: Start: 05-19-2018 End: 05-19-2018 DULOXETINE 30MG MISC 019 - 05/19/2018 Provider: Start: 05-19-2018 End: 05-19-2018 [facility]INE [facility] - 05/19/2018 Provider: Start: 03-07-2018 take 1 capsule by mo [facility] once daily duloxetine 30 mg oral capsule,delayed release(DR/EC) 03/07/2018 take 1 capsule (30 mg) by oral route once daily, take with 60 mg capsule to equal 90 mg daily Start: 03-07-2018 End: 03-07-2018 DULOXETINE 60MG MISC 018 - 03/07/2018 Provider: Start: 03-07-2018 End: 03-07-2018 DULOXETINE 30MG MISC 018 - 03/07/2018 Provider: Start: 08-16-2017 take 1 capsule by mo [facility] once daily 60 mg, oral, Daily, First dose on 10/15/23 at 0900, Look-alike/sound-alike medication - verify indication for use. Swallow whole-do not crush or chew. Although the national sales does not recommend opening the capsule to facilitate administration, the contents of capsule may be sprinkled on applesauce or in apple juice and swallowed (without chewing) immediately; do not sprinkle contents on chocolate pudding. take 1 capsule by [facility] once daily duloxetine 30 mg oral capsule,delayed release(DR/EC) take 1 capsule (30 mg) by oral route once daily ergocalciferol 1.25 mg oral capsule (4 sources) Provitamin D2 Compound Start: 07-19-2018 Ergocalciferol [id number] Oral Capsule, conventional 07/19/2018 Provider: Start: 09-14-2017 take 1 capsule by [facility] every week Vitamin D2 50,000 unit oral [...] 07/12/2018 - 07/20/2018 Provider: Leda Agrawal CNP Rskcertjmgf-Yedyuwpgl-Avxyjl (Trelegy Ellipta) 200-62.5-25 MCG/ACT aerosol powder (4 sources) Start: 11-02-2023 take 1 puff(s) by inhalation once daily Hfvennyfzti-Dwxarmxle-Jztbjo (Trelegy Ellipta) 200-62.5-25 MCG/ACT aerosol powder Indications: Chronic obstructive pulmonary disease, unspecified COPD type ([facility]) Inhale 1 puff Daily 28 [...] Start: 05-19-2018 End: 05-19-2018 GABAPENTIN 300 mg [facility] 05/19 - 05/19/2018 Provider: Start: 02-13-2018 End: 02-13-2018 Gabapentin 600MG OR TABS - 02/13/2018 Provider: Start: 09-26-2017 take 1 capsule by mo [facility] three times daily gabapentin 300 mg oral [...] Every 4 hours PRN, high blood pressure, xds=[id number], Starting on 10/15/23 at 1020, Look-alike/sound-alike medication [...] Start: 03-13-2018 take 1 capsule by mo [facility] twice daily hydroxyzine pamoate 50 mg [...] 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 ([facility]) Take 2.5 tablets (50 mg total) [...] 1 dose take 2 tablets by mo [facility] every four hours as needed for pain [...] Start: 02-13-2018 End: 02-13-2018 CLINDAMYCIN HCL 300MG [facility] 02/13/2018 - 02/13/2018 Provider: Start: 02-13-2018 [...] day with food kit for prep of Nt-33z-[id number] 2.5 mg recon soln 5 millicurie (1 [...] and after each intermittent use, Starting on [facility] 10/14/23 at 2218 technetium pentetate (DTPA AEROSOL) [...] 09-26-2017 Chronic Other aftercare (2 sources) Other intermediate card tender (current) drug therapy; Translations: [OTH 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 LAW ATTORNEY CURRENT DRUG THERAPY] Onset: 2 Episodic Other aftercare (1 source) intermission coordinator (current) use of systemic steroids; Translations: [intermission coordinator (current) use of systemic steroids] Onset: 4 Episodic Other circulatory disease (1 source) 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 Mccormick. [facility] Orders Onlyon 12-18-2024 Orders Only [id number] Danielle Montana 1965 F Date Provider Department [place] 12/18/2024 [id number], HISTORICAL [facility] Family History Problem Relation Age of Onset Coronary artery disease Father Family Status - Relation Status Age at Mother Father [facility] 36on 12-10-2024 36 MD Aliya Lundberg MA Great - her s.cr is almost back to normal. Please reassure her. Thanks Spoke to patient, advised patient of lab results per Dr. Mccormick's request. Patient verbalized understanding [facility] 36on 12-09-2024 36 Regarding lab results from [...] of care. No new medications per patient [facility] 36 Regarding lab results from 12/05/2024: MD [...] LM for patient to return my call. [facility] Telephoneon 12-09-2024 Telephone [id number] Danielle Montana 1965 F Date Provider Department Center 12/09/2024 [id number] WOOTEN [facility] Family History Problem Relation Age of Onset Coronary artery disease Father Family Status - Relation Status Age at Mother Father [facility] HPon 12-06-2024 HP History Of Present Illness [...] Resource Strain: Low Risk (02/05/2024) Received from [facility] Overall Financial Resource Strain (CARDIA) Difficulty of Paying Living Expenses: Not very hard Food Insecurity: No Food Insecurity (02/05/2024) Received from [facility] Hunger Vital Sign Worried About Running Out of Food in the Last Year: Never true Ran Out of Food in the Last Year: Never true Transportation Needs: Unmet Transportation Needs (02/05/2024) Received from [facility] PRAPARE - Transportation Lack of Transportation (Medical): Yes Lack of Transportation (Non-Medical): No Physical Activity: Not on file Stress: Not on file Social Connections: Socially Isolated (02/05/2024) Received from [facility] Social Connection and Isolation Panel [NHANES] Frequency of Communication with Friends and Family: Twice a week Frequency of Social Gatherings with Friends and Family: Never Attends Anabaptist Services: Never Active Member of Clubs or Organizations: No Attends Club or Organization Meetings: Never Marital Status: Intimate Partner Violence: Not At Risk (05/23/2024) Humiliation, Afraid, Rape, and Kick questionnaire Fear of Current or Ex-Partner: No Emotionally Abused: No Physically Abused: No Sexually Abused: No Housing Stability: Unknown (02/05/2024) Received from [facility] Housing Stability Vital Sign Unable to Pay [...] and agreed to proceed. 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 Normal [facility] NURSNOTEon 12-06-2024 NURSNOTE RN educated pt on [...] any questions or concerns if pt verbalized. [facility] 36on 11-19-2024 36 Regarding stress test [...] it. Lab orders entered and faxed to [facility]. Patient verbalized understanding. [facility] Telephoneon 11-19-2024 Telephone [id number] Courtney Montanadevendra Bar 1965 F Date Provider Department [place] 11/19/2024 928-ALISHA FORDE [facility] Family History Problem Relation Age of Onset Coronary artery disease Father Family Status - Relation Status Age at Mother Father [facility] Orders Onlyon 11-11-2024 Orders Only [id number] Danielle Montana Yosvany 1965 F Date Provider Department [place] 11/11/2024 [id number], HISTORICAL JUAN CARD [facility] Family History Problem Relation Age of Onset Coronary artery disease Father Family Status - Relation Status Age at Mother Father [facility] Office Visiton 10-08-2024 Follow-up visit [id number] Danielle [place] Yosvany 1965 Date Provider Department Center 10/08/2024 271-MEHRDAD MCCORMICK Family History Problem Relation Age of Onset Coronary artery disease Father Family Status - Relation Status Age at Mother Father Level of Service:03510 [place] OFFICE/OUTPATIENT ESTABLISHED MOD MDM 30 MIN [facility] 36on 06-11-2024 36 The [employer] is asking you amend your last office visit on 05/20/2024 and document the need for a BP cuff for this patient. Can you do that quick and let me know when it's done? Thank you so much!! :) [facility] Orders Onlyon 06-10-2024 Orders Only [id number] Danielle Montana Yosvany 1965 F Date Provider Department Center 06/10/2024 KEITH TIRADO CARD [facility] Family History Problem Relation Age of Onset Coronary artery disease Father Family Status - Relation Status Age at Father Normal [facility] Telephoneon 05-29-2024 Telephone [id number] DovDanielle mcclendon 1965 F Date Provider Department Center 05/29/2024 271-MEHRDAD MCCORMICK [facility] Family History Problem Relation Age of Onset Coronary artery disease Father Family Status - Relation Status Age at Father Normal [facility] Infusionon 05-23-2024 Infusion [id number] Danielle [place] 1965 F Date Provider Department Center 05/23/2024 [id number] CHAIR 9 DCC INF DCC Family History Problem Relation Age of Onset Coronary artery disease Father Family Status - Relation Status Age at Father Normal [facility] Office Visiton 05-20-2024 Follow-up visit [id number] Danielle [place] 1965 Date Provider Department Center 05/20/2024 271-MEHRDAD MCCORMICK [facility] Family History Problem Relation Age of Onset Coronary artery disease Father Family Status - Relation Status Age at Father Level of Service:57112 [place] OFFICE/OUTPATIENT ESTABLISHED MOD MDM 30 MIN [facility] 36on 03-07-2024 36 Called patient to reschedule their appointment scheduled for 03/[address] Daniels Result: left voicemail to reschedule [facility] BASIC METABOLIC PANLon 01-21 Anion gap [Moles/Vol] 9 mmol/L Normal 5-15 [facility] Comment on above: Performed By: #### C BCA, CMP, 60723-0 #### [facility] ([id number]) [address] [place] [address] 85141 Calcium [Mass/Vol] 9.5 mg/dL Normal 8.5-10.5 [facility] Comment on above: Performed By: #### C BCA, CMP, 88769-7 #### [facility] ([id number]) [address] [place] [address] 76204 Chloride [Moles/Vol] 101 mmol/L Normal 98-109 [facility] Comment on above: Performed By: #### C BCA, CMP, 63501-4 #### [facility] ([id number]) [address] [place] [address] 95044 CO2 [Moles/Vol] 31 mmol/L Normal 22-32 [facility] Comment on above: Performed By: #### C EDEL POOLE, 77170-5 #### [facility] ([id number]) [address] [place] [address] 62134 Creatinine [Mass/Vol] 1.63 mg/dL High 0.40-1.00 [facility] Comment on above: Result Comment: METH OD TRACEABLE TO IDMS STANDARD Performed By: #### C EDEL POOLE, 40428-8 #### [facility] ([id number]) [address] [place] [address] 36974 GFR/1.73 sq M.predicted among non-blacks MDRD (S/P/Bld) [Vol rate/Area] 36 mL/min/{1.73_m2} Low >59 [facility] Comment on above: Result Comment: Reported eGFR is based on the CKD-EPI 2020 equation that does not use a race coefficient. Performed By: #### C EDEL POOLE, #### [facility] ([id number]) [address] [place] [address] 28792 Glucose [Mass/Vol] 84 mg/dL Normal 65-99 [facility] Comment on above: Performed By: #### C EDEL POOLE, 52261-3 #### [facility] ([id number]) [address] [place] [address] 19525 Potassium [Moles/Vol] 4.3 mmol/L Normal 3.5-5.0 [facility] Comment on above: Performed By: #### C EDEL POOLE, 33896-0 #### [facility] ([id number]) [address] [place] [address] 34145 Sodium [Moles/Vol] 141 mmol/L Normal 134-146 [facility] Comment on above: Performed By: #### C EDEL POOLE, 71147-4 #### [facility] ([id number]) [address] [place] [address] 42323 Urea nitrogen [Mass/Vol] 34 mg/dL High 5-23 [facility] Comment on above: Performed By: #### C BCA, CMP, 53737-3 #### [facility] ([id number]) [address] [place] [address] [place] [address] BASIC METABOLIC PANLon 01-11 Anion gap [Moles/Vol] 12 mmol/L Normal 5-15 [facility] Comment on above: Performed By: #### 8 9579-7 #### [facility] ([id number]) [address] [place] [address] 69865 Calcium [Mass/Vol] 9.4 mg/dL Normal 8.5-10.5 [facility] Comment on above: Performed By: #### 8 9579-7 #### [facility] ([id number]) [address] [place] [address] 48967 Chloride [Moles/Vol] 104 mmol/L Normal 98-109 [facility] Comment on above: Performed By: #### 8 9579-7 #### [facility] ([id number]) [address] [place] [address] 83172 CO2 [Moles/Vol] 28 mmol/L Normal 22-32 [facility] Comment on above: Performed By: #### 8 9579-7 #### [facility] ([id number]) [address] [place] [address] 87560 Creatinine [Mass/Vol] 1.22 mg/dL High 0.40-1.00 [facility] Comment on above: Result Comment: METH OD TRACEABLE TO IDMS STANDARD Performed By: #### 8 9579-7 #### [facility] ([id number]) [address] [place] [address] [place] [address] GFR/1.73 sq M.predicted among non-blacks MDRD (S/P/Bld) [Vol rate/Area] 51 mL/min/{1.73_m2} Low >59 [facility] Comment on above: Result Comment: Reported eGFR is based on the CKD-EPI 2020 equation that does not use a race coefficient. Performed By: #### 8 9579-7 #### [facility] ([id number]) [address] [place] [address] 18116 Glucose [Mass/Vol] 100 mg/dL High 65-99 [facility] Comment on above: Performed By: #### 8 9579-7 #### [facility] ([id number]) [address] [place] [address] 85175 Potassium [Moles/Vol] 3.8 mmol/L Normal 3.5-5.0 [facility] Comment on above: Performed By: #### 8 9579-7 #### [facility] ([id number]) [address] [place] [address] 00270 Sodium [Moles/Vol] 144 mmol/L Normal 134-146 [facility] Comment on above: Performed By: #### 8 9579-7 #### [facility] ([id number]) [address] [place] [address] 27399 Urea nitrogen [Mass/Vol] 17 mg/dL Normal 5-23 [facility] Comment on above: Performed By: #### 8 9579-7 #### [facility] ([id number]) [address] [place] [address] 87977 COMPLETE BLOOD COUNTon 01-11 Erythrocyte distribution width (RBC) [Ratio] 16.7 % High 11.5-15.0 [facility] Comment on above: Performed By: #### 8 9579-7 #### [facility] ([id number]) [address] [place] [address] 51800 Hematocrit (Bld) [Volume fraction] 33.6 % Low 35-47 [facility] Comment on above: Performed By: #### 8 9579-7 #### [facility] ([id number]) [address] [place] [address] 47115 Hemoglobin (Bld) [Mass/Vol] 11.2 g/dL Low 11.7-15.5 [facility] Comment on above: Performed By: #### 8 9579-7 #### [facility] ([id number]) [address] [place] [address] 15078 MCH (RBC) [Entitic mass] 28.8 pg Normal 27-34 [facility] Comment on above: Performed By: #### 8 9579-7 #### [facility] ([id number]) [address] [place] [address] 74333 MCHC (RBC) [Mass/Vol] 33.3 g/dL Normal 32-36 [facility] Comment on above: Performed By: #### 8 9579-7 #### [facility] ([id number]) [address] [place] [address] 76719 MCV (RBC) [Entitic vol] 87 fL Normal 80-100 [facility] Comment on above: Performed By: #### 8 9579-7 #### [facility] ([id number]) [address] [place] [address] 24603 Platelet mean volume (Bld) [Entitic vol] 9.7 fL Normal 7-12 [facility] Comment on above: Performed By: #### 8 9579-7 #### [facility] ([id number]) [address] [place] [address] 15214 Platelets (Bld) [#/Vol] 268 10*3/uL Normal 150-450 [facility] Comment on above: Performed By: #### 8 9579-7 #### [facility] ([id number]) [address] [place] [address] 33880 RBC COUNT 3.88 X10E12/L Normal 3.80-5.20 [facility] Comment on above: Performed By: #### 8 9579-7 #### [facility] ([id number]) [address] [place] [address] 00754 WBC (Bld) [#/Vol] 8.8 10*3/uL Normal 4.0-11.0 [facility] Comment on above: Performed By: #### 8 9579-7 #### [facility] ([id number]) [address] [place] [address] 93090 Creatinine (U) [Mass/Vol]on 01-12-2024 URINE CREATININE,RDM 107.95 mg/dL Normal [facility] Comment on above: Performed By: #### Shahla POOLE [facility], #### [facility] ([id number]) [address] [place] [address] 34749 HBV core Ab IA Qlon 01-12-20 ANTI HBc Negative Normal NEG [facility] Comment on above: Performed By: #### Shahla POOLE [facility], #### [facility] ([id number]) [address] [place] [address] 28741 HBV surface Ab IA Qnon 01-11 Anti HBs quant. <8.00 Normal [facility] Comment on above: Result Comment: Vacc inated: >=12mIU/mL, Positive (Immune) Unvaccinated: <8mIU/mL, Negative (Not Immune) 8-11.99 mIU/mL: Indeterminate, (Considered Not Immune) Performed By: #### Shahla POOLE CMP, #### [facility] ([id number]) [address] [place] [address] 05804 HBV surface Ag IA Qlon 01-11 HEPATITIS B SURF AG Negative Normal NEG [facility] Comment on above: Performed By: #### C EDEL POOLE, 56111-9 #### [facility] ([id number]) [address] [place] [address] 05792 MAGNESIUMon 01-12-2024 Magnesium [Mass/Vol] 1.6 mg/dL Low 1.8-2.6 [facility] Comment on above: Performed By: #### 8 9579-7 #### [facility] ([id number]) [address] [place] [address] 14049 PHOSPHORUSon 01-12-2024 Phosphate [Mass/Vol] 3.6 mg/dL Normal 2.4-4.9 [facility] Comment on above: Performed By: #### 8 9579-7 #### [facility] ([id number]) [address] [place] [address] 73444 PROTEIN CREAT RATIOon 2023 RANDOM URINE PROTEIN 4520 mg/L High <120 [facility] Comment on above: Performed By: #### C VIRGILIO [facility], 01618-5 #### [facility] ([id number]) [address] [place] [address] 24422 U/PRO/CLARIFICATION OPERATOR RATIO CALC 4.15 High <0.2 [facility] Comment on above: Result Comment: Neph rotic Syndrome is associated with ratios >3.5 Performed By: #### C EDEL POOLE, 71776-3 #### [facility] ([id number]) [address] [place] [address] 19157 URINE CREATININE,RDM 108.96 mg/dL Normal [facility] Comment on above: Performed By: #### C EDEL POOLE, 26940-5 #### [facility] ([id number]) [address] [place] [address] 34453 Parathyrin.intact [Mass/Vol] on 01-12-2024 PTH INTACT 69 pg/mL Normal 12-88 [facility] Comment on above: Performed By: #### C BCA, CMP, 53504-5 #### [facility] ([id number]) [address] [place] [address] Protein (U) [Mass/Vol]on RANDOM URINE PROTEIN 4560 mg/L High <120 [facility] Comment on above: Performed By: #### C BCA, CMP, #### [facility] ([id number]) [address] [place] [address] [place] [address] URINALYSISon 01-12-2024 Bilirubin Ql (U) Negative Normal NEG [facility] Comment on above: Performed By: #### C BCA, CMP, #### [facility] ([id number]) [address] [place] [address]287 BLOOD/HGB Small Abnormal NEG [facility] Comment on above: Performed By: #### C BCA, CMP, 73878-1 #### [facility] ([id number]) [address] [place] [address] 66410 Color (U) YELLOW Normal YELLOW [facility] Comment on above: Performed By: #### C BCA, CMP, 79637-9 #### [facility] ([id number]) [address] [place] [address] 67014 Glucose Ql (U) Negative Normal NEG [facility] Comment on above: Performed By: #### C BCA, CMP, 92599-2 #### [facility] ([id number]) [address] [place] [address] 86038 Hyaline casts LM Ql (Urine sed) 1 /lpf Normal 0-2 [facility] Comment on above: Performed By: #### C BCA, CMP, 56416-4 #### [facility] ([id number]) [address] [place] [address], [place] [address] Ketones Ql (U) Negative Normal NEG [facility] Comment on above: Performed By: #### C VIRGILIO CMP, 49400-9 #### [facility] ([id number]) [address] [place] [address]00 Leukocyte esterase Test strip Ql (U) Negative Normal NEG [facility] Comment on above: Performed By: #### Shahla POOLE CMP, 74731-3 #### [facility] ([id number]) [address] [place] [address] 30648 MUCOUS PRESENT Abnormal NONE [facility] Comment on above: Performed By: #### C VIRGILIO CMP, 06689-0 #### [facility] ([id number]) [address] [place] [address] 83882 Nitrite Ql (U) Negative Normal NEG [facility] Comment on above: Performed By: #### C VIRIGLIO [facility], 59951-8 #### [facility] ([id number]) [address] [place] [address] 08748 pH (U) 6.5 [pH] Normal 5.0-8.5 [facility] Comment on above: Performed By: #### C VIRGILIO, CMP, 34631-4 #### [facility] ([id number]) [address] [place] [address] 90017 Protein Ql (U) 300 mg/dL Abnormal NEG [facility] Comment on above: Performed By: #### C VIRGILIO, CMP, 14041-2 #### [facility] ([id number]) [address] [place] [address] 84976 R.B.CELLS 0 /hpf Normal 0-5 [facility] Comment on above: Performed By: #### C VIRGILIO, CMP, 73338-1 #### [facility] ([id number]) [address] [place] [address] 59815 Specific gravity (U) [Rel density] 1.015 Normal 1.003-1.03 5 [facility] Comment on above: Performed By: #### Shahla POOLE [facility], 60865-9 #### [facility] ([id number]) [address] [place] [address] 97040 SQUAMOUS EPITHELIUM 1 /hpf Normal 0-5 [facility] Comment on above: Performed By: #### Shahla POOLE [facility], 99206-7 #### [facility] ([id number]) [address] [place] [address] 95775 TURBIDITY CLEAR Normal CLEAR [facility] Comment on above: Performed By: #### Shahla POOLE [facility], 59274-2 #### [facility] ([id number]) [address] [place] [address] 27193 Urobilinogen (U) [Mass/Vol] mg/dL Normal <1.1 [facility] Comment on above: Performed By: #### Shahla POOLE [facility], 50984-9 #### [facility] ([id number]) [address] [place] [address] 97130 W.B.CELLS 2 /hpf Normal 0-5 [facility] Comment on above: Performed By: #### Shahla POOLE [facility], 40986-2 #### [facility] ([id number]) [address] [place] [address] 11590 Vitamin D+Metabolites [Mass/ Vol]on 01-12-2024 VITAMIN D 25 HYD TOT 23.5 ng/mL Low 30-100 [facility] Comment on above: Result Comment: Vitamin D status 25 [place] Vitamin D Deficiency <20 ng/mL Insufficiency 20-29 ng/mL Sufficiency 30-100 ng/mL Toxicity >100 ng/mL NOTE: A pediatric reference range has not been established by the national sales of this kit. The [place] [employer] recommends a Vitamin D level of = or >20ng/mL in infants and children. Performed By: #### Shahla POOLE CMP, #### [facility] ([id number]) [address] [place] [address], [place] [address] COMPLETE BLOOD COUNTon 12-18 Erythrocyte distribution width (RBC) [Ratio] 16.7 % High 11.5-15.0 [facility] Comment on above: Performed By: #### C EDEL POOLE, , 2776-04, 1987-08 #### [facility] ([id number]) [address], [address] [place] [address] Hematocrit (Bld) [Volume fraction] 30.1 % Low 35-47 [facility] Comment on above: Performed By: #### Shahla POOLE CMP, , 2776-04, 1987-08 #### [facility] ([id number]) [address], [address] [place] [address] Hemoglobin (Bld) [Mass/Vol] 9.6 g/dL Low 11.7-15.5 [facility] Comment on above: Performed By: #### Shahla POOLE CMP, , 2776-04, 1987-08 #### [facility] ([id number]) [address], [address] [place] [address] MCH (RBC) [Entitic mass] 27.3 pg Normal 27-34 [facility] Comment on above: Performed By: #### Shahla POOLE CMP, , 2776-04, 1987-08 #### [facility] ([id number]) [address], [address] [place] [address] MCHC (RBC) [Mass/Vol] 32.0 g/dL Normal 32-36 [facility] Comment on above: Performed By: #### Shahla POOLE CMP, , 2776-04, 1987-08 #### [facility] ([id number]) [address], [address] [place] [address] MCV (RBC) [Entitic vol] 86 fL Normal 80-100 [facility] Comment on above: Performed By: #### C BCA, CMP, , 2776-04, 1987-08 #### [facility] ([id number]) [address], [address] [place] [address] Platelet mean volume (Bld) [Entitic vol] 9.1 fL Normal 7-12 [facility] Comment on above: Performed By: #### C BCA, CMP, , 2776-04, 1987-08 #### [facility] ([id number]) [address], [address] [place] [address] Platelets (Bld) [#/Vol] 361 10*3/uL Normal 150-450 [facility] Comment on above: Performed By: #### C BCA, CMP, , 2776-04, 1987-08 #### [facility] ([id number]) [address], [address] [place] [address] RBC COUNT 3.52 X10E12/L Low 3.80-5.20 [facility] Comment on above: Performed By: #### C BCA, CMP, , 2776-04, 1987-08 #### [facility] ([id number]) [address], [address] [place] [address] WBC (Bld) [#/Vol] 8.2 10*3/uL Normal 4.0-11.0 [facility] Comment on above: Performed By: #### C BCA, CMP, , 2776-04, 1987-08 #### [facility] ([id number]) [address], [address] [place] [address] COMPREHENSIVE METABOLIC PANE Phu 12-19-2023 Albumin [Mass/Vol] 3.4 g/dL Normal 3.2-5.3 [facility] Comment on above: Performed By: #### C BCA, CMP, , 2776-04, 1987-08 #### [facility] ([id number]) [address], [address] [place] [address] ALP [Catalytic activity/Vol] 60 U/L Normal 39-130 [facility] Comment on above: Performed By: #### C BCA, CMP, , 2776-04, 1987-08 #### [facility] ([id number]) [address], [address] [place] [address] ALT [Catalytic activity/Vol] 12 U/L Normal 0-31 [facility] Comment on above: Performed By: #### C BCA, CMP, , 2776-04, 1987-08 #### [facility] ([id number]) [address], [address] [place] [address] Anion gap [Moles/Vol] 9 mmol/L Normal 5-15 [facility] Comment on above: Performed By: #### C BCA, CMP, , 2776-04, 1987-08 #### [facility] ([id number]) [address], [address] [place] [address] AST [Catalytic activity/Vol] 13 U/L Normal 0-41 [facility] Comment on above: Performed By: #### C BCA, CMP, , 2776-04, 1987-08 #### [facility] ([id number]) [address], [address] [place] [address] Bilirubin [Mass/Vol] 0.4 mg/dL Normal 0.3-1.2 [facility] Comment on above: Performed By: #### C BCA, CMP, , 2776-04, 1987-08 #### [facility] ([id number]) [address], [address] [place] [address] Calcium [Mass/Vol] 9.5 mg/dL Normal 8.5-10.5 [facility] Comment on above: Performed By: #### C BCA, CMP, , 2776-04, 1987-08 #### [facility] ([id number]) [address], [address] [place] [address] Chloride [Moles/Vol] 105 mmol/L Normal 98-109 [facility] Comment on above: Performed By: #### C BCA, CMP, , 2776-04, 1987-08 #### [facility] ([id number]) [address], [address] [place] [address] CO2 [Moles/Vol] 28 mmol/L Normal 22-32 [facility] Comment on above: Performed By: #### C BCA, CMP, , 2776-04, 1987-08 #### [facility] ([id number]) [address], [address] [place] [address] Creatinine [Mass/Vol] 1.23 mg/dL High 0.40-1.00 [facility] Comment on above: Result Comment: METH OD TRACEABLE TO IDMS STANDARD Performed By: #### C BCA, CMP, , 2776-04, 1987-08 #### [facility] ([id number]) [address], [address] [place] [address] GFR/1.73 sq M.predicted among non-blacks MDRD (S/P/Bld) [Vol rate/Area] 51 mL/min/{1.73_m2} Low >59 [facility] Comment on above: Result Comment: Reported eGFR is based on the CKD-EPI 2020 equation that does not use a race coefficient. Performed By: #### C BCA, CMP, , 2776-04, 1987-08 #### [facility] ([id number]) [address], [address] [place] [address] Glucose [Mass/Vol] 89 mg/dL Normal 65-99 [facility] Comment on above: Performed By: #### C BCA, CMP, , 2776-04, 1987-08 #### [facility] ([id number]) [address], [address] [place] [address] Potassium [Moles/Vol] 4.9 mmol/L Normal 3.5-5.0 [facility] Comment on above: Performed By: #### C BCA, CMP, , 2776-04, 1987-08 #### [facility] ([id number]) [address], [address] [place] [address] Protein [Mass/Vol] 6.0 g/dL Normal 6.0-8.0 [facility] Comment on above: Performed By: #### C BCA, CMP, , 2776-04, 1987-08 #### [facility] ([id number]) [address], [address] [place] [address] Sodium [Moles/Vol] 142 mmol/L Normal 134-146 [facility] Comment on above: Performed By: #### C BCA, CMP, , 2776-04, 1987-08 #### [facility] ([id number]) [address], [address] [place] [address] Urea nitrogen [Mass/Vol] 21 mg/dL Normal 5-23 [facility] Comment on above: Performed By: #### C BCA, CMP, , 2776-04, 1987-08 #### [facility] ([id number]) [address], [address] [place] [address] CRP [Mass/Vol]on 12-19-2023 C REACTIVE PROTEIN 0.8 mg/dL High 0.000-0.7 4 4 [facility] Comment on above: Performed By: #### C VIRGILIO CMP, , 2776-04, 1987-08 #### [facility] ([id number]) [address], [address] [place] [address] ESR Photometric method (Bld) [Velocity]on 12-19-2023 ESR, ERYTHROCYTE SEDIMENTATION RATE 67 mm/h High 0-30 [facility] Comment on above: Performed By: #### C VIRGILIO, CMP, , 2776-04, 1987-08 #### [facility] ([id number]) [address], [address] [place] [address] Neutrophil cytoplasmic Ab pa selvin IF (S)on 12-19-2023 c-ANCA Negative Normal Negative [facility] Comment on above: Performed By: #### C VIRGILIO EDEL, , 2776-04, 1987-08 #### [facility] ([id number]) [address], [address] [place] [address] p-ANCA Positive Abnormal Negative [facility] Comment on above: Result Comment: NOTE Positive for pANCA pattern by immunofluorescence. Suggest further testing for anti-myeloperoxidase (anti-MPO) antibodies, if clinically indicated. ADDITIONAL INFORMATION This test was developed and its performance characteristics determined by [facility] in a manner consistent with CLIA requirements. This test has not been cleared or approved by the U.S. Food and Drug Administration. Test Performed by: [facility] [address] [place] [address] Leadership Program Associate: Ledy Son Ph.D.; CLIA# [id number] Performed By: #### C VIRGILIO, CMP, , 2776-04, 1987-08 #### [facility] ([id number]) [address], [address] [place] [address] CBC AND AUTO DIFFon 11-07-19 24 ABSOLUTE BASOPHIL 0.0 X10E9/L Normal 0.0-0.2 [facility] Comment on above: Performed By: #### C BCA, CMP, , 2776-04, 1987-08 #### [facility] ([id number]) [address], [address] [place] [address] ABSOLUTE NEUTROPHIL 12.2 X10E9/L High 1.5-6.6 [facility] Comment on above: Performed By: #### C BCA, CMP, , 2776-04, 1987-08 #### [facility] ([id number]) [address], [address] [place] [address] Basophils/100 WBC (Bld) 0.2 % Normal [facility] Comment on above: Performed By: #### C BCA, CMP, , 2776-04, 1987-08 #### [facility] ([id number]) [address], [address] [place] [address] Eosinophils (Bld) [#/Vol] 0.0 10*3/uL Normal 0.0-0.4 [facility] Comment on above: Performed By: #### C BCA, CMP, , 2776-04, 1987-08 #### [facility] ([id number]) [address], [address] [place] [address] Eosinophils/100 WBC (Bld) 0.0 % Normal [facility] Comment on above: Performed By: #### C BCA, CMP, , 2776-04, 1987-08 #### [facility] ([id number]) [address], [address] [place] [address] Erythrocyte distribution width (RBC) [Ratio] 15.6 % High 11.5-15.0 [facility] Comment on above: Performed By: #### C BCA, CMP, , 2776-04, 1987-08 #### [facility] ([id number]) [address] [place] [address] Hematocrit (Bld) [Volume fraction] 32.0 % Low 35-47 [facility] Comment on above: Performed By: #### Shahla POOLE CMP, , 2776-04, 1987-08 #### [facility] ([id number]) [address], [address] [place] [address] Hemoglobin (Bld) [Mass/Vol] 10.4 g/dL Low 11.7-15.5 [facility] Comment on above: Performed By: #### Shahla POOLE CMP, , 2776-04, 1987-08 #### [facility] ([id number]) [address], [address] [place] [address] Lymphocytes (Bld) [#/Vol] 0.3 10*3/uL Low 1.0-3.5 [facility] Comment on above: Performed By: #### Shahla POOLE CMP, , 2776-04, 1987-08 #### [facility] ([id number]) [address] [place] [address] Lymphocytes/100 WBC (Bld) 2.6 % Normal [facility] Comment on above: Performed By: #### Shahla POOLE CMP, , 2776-04, 1987-08 #### [facility] ([id number]) [address], [address] [place] [address] MCH (RBC) [Entitic mass] 27.6 pg Normal 27-34 [facility] Comment on above: Performed By: #### Shahla BCA, CMP, , 2776-04, 1987-08 #### [facility] ([id number]) [address], [address] [place] [address] MCHC (RBC) [Mass/Vol] 32.4 g/dL Normal 32-36 [facility] Comment on above: Performed By: #### C BCA, CMP, , 2776-04, 1987-08 #### [facility] ([id number]) [address], [address] [place] [address] MCV (RBC) [Entitic vol] 85 fL Normal 80-100 [facility] Comment on above: Performed By: #### Shahla BCA, CMP, , 2776-04, 1987-08 #### [facility] ([id number]) [address], [address] [place] [address] Monocytes (Bld) [#/Vol] 0.2 10*3/uL Normal 0-0.9 [facility] Comment on above: Performed By: #### Shahla BCA, CMP, , 2776-04, 1987-08 #### [facility] ([id number]) [address] [place] [address] Monocytes/100 WBC (Bld) 1.8 % Normal [facility] Comment on above: Performed By: #### Shahla POOLE, CMP, , 2776-04, 1987-08 #### [facility] ([id number]) [address], [address] [place] [address] Neutrophils/100 WBC (Bld) 95.4 % Normal [facility] Comment on above: Performed By: #### Shahla BCA, CMP, , 2776-04, 1987-08 #### [facility] ([id number]) [address], [address] [place] [address] Platelet mean volume (Bld) [Entitic vol] 9.1 fL Normal 7-12 [facility] Comment on above: Performed By: #### Shahla BCA, CMP, , 2776-04, 1987-08 #### [facility] ([id number]) [address], [address] [place] [address] Platelets (Bld) [#/Vol] 183 10*3/uL Normal 150-450 [facility] Comment on above: Performed By: #### C BCA, CMP, , 2776-04, 1987-08 #### [facility] ([id number]) [address] [place] [address] RBC COUNT 3.76 X10E12/L Low 3.80-5.20 [facility] Comment on above: Performed By: #### C BCA, CMP, , 2776-04, 1987-08 #### [facility] ([id number]) [address], [address] [place] [address] WBC (Bld) [#/Vol] 12.8 10*3/uL High 4.0-11.0 [facility] Comment on above: Performed By: #### C BCA, CMP, , 2776-04, 1987-08 #### [facility] ([id number]) [address] [place] [address] COMPREHENSIVE METABOLIC PANE Phu 11-07-2023 Albumin [Mass/Vol] 3.5 g/dL Normal 3.2-5.3 [facility] Comment on above: Performed By: #### C BCA, CMP, , 2776-04, 1987-08 #### [facility] ([id number]) [address], [address] [place] [address] ALP [Catalytic activity/Vol] 46 U/L Normal 39-130 [facility] Comment on above: Performed By: #### C BCA, CMP, , 2776-04, 1987-08 #### [facility] ([id number]) [address] [place] [address] ALT [Catalytic activity/Vol] 31 U/L Normal 0-31 [facility] Comment on above: Performed By: #### C BCA, CMP, , 2776-04, 1987-08 #### [facility] ([id number]) [address] [place] [address] Anion gap [Moles/Vol] 9 mmol/L Normal 5-15 [facility] Comment on above: Performed By: #### C BCA, CMP, , 2776-04, 1987-08 #### [facility] ([id number]) [address] [place] [address] AST [Catalytic activity/Vol] 10 U/L Normal 0-41 [facility] Comment on above: Performed By: #### C BCA, CMP, , 2776-04, 1987-08 #### [facility] ([id number]) [address] [place] [address] Bilirubin [Mass/Vol] 0.5 mg/dL Normal 0.3-1.2 [facility] Comment on above: Performed By: #### C BCA, CMP, , 2776-04, 1987-08 #### [facility] ([id number]) [address] [place] [address] Calcium [Mass/Vol] 9.1 mg/dL Normal 8.5-10.5 [facility] Comment on above: Performed By: #### C BCA, CMP, , 2776-04, 1987-08 #### [facility] ([id number]) [address] [place] [address] Chloride [Moles/Vol] 104 mmol/L Normal 98-109 [facility] Comment on above: Performed By: #### C BCA, CMP, , 2776-04, 1987-08 #### [facility] ([id number]) [address], [address] [place] [address] CO2 [Moles/Vol] 26 mmol/L Normal 22-32 [facility] Comment on above: Performed By: #### C BCA, CMP, , 2776-04, 1987-08 #### [facility] ([id number]) [address] [place] [address] Creatinine [Mass/Vol] 1.60 mg/dL High 0.40-1.00 [facility] Comment on above: Result Comment: METH OD TRACEABLE TO IDMS STANDARD Performed By: #### C VIRGILIO, CMP, , 2776-04, 1987-08 #### [facility] ([id number]) [address] [place] [address] GFR/1.73 sq M.predicted among non-blacks MDRD (S/P/Bld) [Vol rate/Area] 37 mL/min/{1.73_m2} Low >59 [facility] Comment on above: Result Comment: Reported eGFR is based on the CKD-EPI 2020 equation that does not use a race coefficient. Performed By: #### C VIRGILIO, CMP, , 2776-04, 1987-08 #### [facility] ([id number]) [address] [place] [address] Glucose [Mass/Vol] 119 mg/dL High 65-99 [facility] Comment on above: Performed By: #### C VIRGILIO, CMP, , 2776-04, 1987-08 #### [facility] ([id number]) [address] [place] [address] Potassium [Moles/Vol] 5.2 mmol/L High 3.5-5.0 [facility] Comment on above: Performed By: #### C BCA, CMP, , 2776-04, 1987-08 #### [facility] ([id number]) [address] [place] [address] Protein [Mass/Vol] 5.3 g/dL Low 6.0-8.0 [facility] Comment on above: Performed By: #### C BCA, CMP, , 2776-04, 1987-08 #### [facility] ([id number]) [address], [address] [place] [address] Sodium [Moles/Vol] 139 mmol/L Normal 134-146 [facility] Comment on above: Performed By: #### C BCA, CMP, , 2776-04, 1987-08 #### [facility] ([id number]) [address], [address] [place] [address] Urea nitrogen [Mass/Vol] 52 mg/dL High 5-23 [facility] Comment on above: Performed By: #### C BCA, CMP, , 2776-04, 1987-08 #### [facility] ([id number]) [address], [address] [place] [address] M. tuberculosis stim IFN-g p tiffanie (Bld)on 11-07-2023 Mitogen minus Nil Result 0.07 IU/mL Normal [facility] Nil Result 0.01 IU/mL Normal [facility] Comment on above: Result Comment: NOTE Test Performed by: [facility] [address] [place] [address] Leadership Program Associate: Ledy Son Ph.D.; CLIA# [id number] QuantiFERON-Tb Gold Plus Result Indeterminate Abnormal Negative [facility] Comment on above: Result Comment: NOTE Indeterminate due to a low interferon-gamma level in the mitogen (positive control) tube. This may occur due to a low lymphocyte count, reduced lymphocyte activity or inability of the patient's lymphocytes to generate interferon-gamma. The reference range for the 'Mitogen minus Nil Result' is >=0.5 IU/mL. TB1 Ag minus Nil Result 0.00 IU/mL Normal [facility] TB2 Ag minus Nil Result 0.00 IU/mL Normal [facility] BASIC METABOLIC PANLon 11-01 Anion gap [Moles/Vol] 9 mmol/L Normal 5-15 [facility] Comment on above: Performed By: #### 8 9579-7 #### [facility] ([id number]) [address] [place] [address] Calcium [Mass/Vol] 8.5 mg/dL Normal 8.5-10.5 [facility] Comment on above: Performed By: #### 8 9579-7 #### [facility] ([id number]) [address] [place] [address] Chloride [Moles/Vol] 108 mmol/L Normal 98-109 [facility] Comment on above: Performed By: #### 8 9579-7 #### [facility] ([id number]) [address] [place] [address] CO2 [Moles/Vol] 24 mmol/L Normal 22-32 [facility] Comment on above: Performed By: #### 8 9579-7 #### [facility] ([id number]) [address] [place] [address] Creatinine [Mass/Vol] 1.59 mg/dL High 0.40-1.00 [facility] Comment on above: Result Comment: METH OD TRACEABLE TO IDMS STANDARD Performed By: #### 8 9579-7 #### [facility] ([id number]) [address] [place] [address] GFR/1.73 sq M.predicted among non-blacks MDRD (S/P/Bld) [Vol rate/Area] 37 mL/min/{1.73_m2} Low >59 [facility] Comment on above: Result Comment: Reported eGFR is based on the CKD-EPI 1 equation that does not use a race coefficient. Performed By: #### 8 9579-7 #### [facility] ([id number]) [address] [place] [address]512 Glucose [Mass/Vol] 109 mg/dL High 65-99 [facility] Comment on above: Performed By: #### 8 9579-7 #### [facility] ([id number]) [address] [place] [address]178 Potassium [Moles/Vol] 3.9 mmol/L Normal 3.5-5.0 [facility] Comment on above: Performed By: #### 8 9579-7 #### [facility] ([id number]) [address] [place] [address]6874 Sodium [Moles/Vol] 141 mmol/L Normal 134-146 [facility] Comment on above: Performed By: #### 8 9579-7 #### [facility] ([id number]) [address] [place] [address] Urea nitrogen [Mass/Vol] 40 mg/dL High 5-23 [facility] Comment on above: Performed By: #### 8 9579-7 #### [facility] ([id number]) [address] [place] [address] CBC AND AUTO DIFFon 10-25-19 24 ABSOLUTE BASOPHIL 0.1 X10E9/L Normal 0.0-0.2 [facility] Comment on above: Performed By: #### C VIRGILIO, CMP, , 2776-04, 1987-08 #### [facility] ([id number]) [address], [address] [place] [address] ABSOLUTE NEUTROPHIL 6.5 X10E9/L Normal 1.5-6.6 [facility] Comment on above: Performed By: #### C BCA, CMP, , 2776-04, 1987-08 #### [facility] ([id number]) [address] [place] [address] Basophils/100 WBC (Bld) 0.6 % Normal [facility] Comment on above: Performed By: #### C BCA, CMP, , 2776-04, 1987-08 #### [facility] ([id number]) [address], [address] [place] [address] Eosinophils (Bld) [#/Vol] 0.0 10*3/uL Normal 0.0-0.4 [facility] Comment on above: Performed By: #### C BCA, CMP, , 2776-04, 1987-08 #### [facility] ([id number]) [address], [address] [place] [address] Eosinophils/100 WBC (Bld) 0.4 % Normal [facility] Comment on above: Performed By: #### C BCA, CMP, , 2776-04, 1987-08 #### [facility] ([id number]) [address], [address] [place] [address] Erythrocyte distribution width (RBC) [Ratio] 14.5 % Normal 11.5-15.0 [facility] Comment on above: Performed By: #### Shahla POOLE, CMP, , 2776-04, 1987-08 #### [facility] ([id number]) [address] [address] [place] [address] Hematocrit (Bld) [Volume fraction] 30.5 % Low 35-47 [facility] Comment on above: Performed By: #### C BCA, CMP, , 2776-04, 1987-08 #### [facility] ([id number]) [address], [address] [place] [address] Hemoglobin (Bld) [Mass/Vol] 10.5 g/dL Low 11.7-15.5 [facility] Comment on above: Performed By: #### C BCA, CMP, , 2776-04, 1987-08 #### [facility] ([id number]) [address], [address] [place] [address] Lymphocytes (Bld) [#/Vol] 1.4 10*3/uL Normal 1.0-3.5 [facility] Comment on above: Performed By: #### Shahla POOLE CMP, , 2776-04, 1987-08 #### [facility] ([id number]) [address] [address] Lymphocytes/100 WBC (Bld) 16.2 % Normal [facility] Comment on above: Performed By: #### Shahla POOLE, CMP, , 2776-04, 1987-08 #### [facility] ([id number]) [address] [address] MCH (RBC) [Entitic mass] 28.5 pg Normal 27-34 [facility] Comment on above: Performed By: #### Shahla BCA, CMP, , 2776-04, 1987-08 #### [facility] ([id number]) [address] [address] MCHC (RBC) [Mass/Vol] 34.4 g/dL Normal 32-36 [facility] Comment on above: Performed By: #### Shahla BCA, CMP, , 2776-04, 1987-08 #### [facility] ([id number]) [address] [address] MCV (RBC) [Entitic vol] 83 fL Normal 80-100 [facility] Comment on above: Performed By: #### Shahla BCA, CMP, , 2776-04, 1987-08 #### [facility] ([id number]) [address] [address] Monocytes (Bld) [#/Vol] 0.5 10*3/uL Normal 0-0.9 [facility] Comment on above: Performed By: #### Shahla BCA, CMP, , 2776-04, 1987-08 #### [facility] ([id number]) [address], [address] [place] [address] Monocytes/100 WBC (Bld) 5.9 % Normal [facility] Comment on above: Performed By: #### Shahla BCA, CMP, , 2776-04, 1987-08 #### [facility] ([id number]) [address], [address] [place] [address] Neutrophils/100 WBC (Bld) 76.9 % Normal [facility] Comment on above: Performed By: #### Shahla BCA, CMP, , 2776-04, 1987-08 #### [facility] ([id number]) [address] [place] [address] Platelet mean volume (Bld) [Entitic vol] 9.1 fL Normal 7-12 [facility] Comment on above: Performed By: #### Shahla BCA, CMP, , 2776-04, 1987-08 #### [facility] ([id number]) [address], [address] [place] [address] Platelets (Bld) [#/Vol] 248 10*3/uL Normal 150-450 [facility] Comment on above: Performed By: #### Shahla BCA, CMP, , 2776-04, 1987-08 #### [facility] ([id number]) [address], [address] [place] [address] RBC COUNT 3.68 X10E12/L Low 3.80-5.20 [facility] Comment on above: Performed By: #### Shahla BCA, CMP, , 2776-04, 1987-08 #### [facility] ([id number]) [address], [address] [place] [address] RBC morphology finding Nom (Bld) REVIEWED Normal [facility] Comment on above: Performed By: #### C BCA, CMP, , 2776-04, 1987-08 #### [facility] ([id number]) [address], [address] [place] [address] WBC (Bld) [#/Vol] 8.4 10*3/uL Normal 4.0-11.0 [facility] Comment on above: Performed By: #### C BCA, CMP, , 2776-04, 1987-08 #### [facility] ([id number]) [address] [place] [address] COMPREHENSIVE METABOLIC PANE Phu 10-25-2023 Albumin [Mass/Vol] 3.1 g/dL Low 3.2-5.3 [facility] Comment on above: Performed By: #### C BCA, CMP, , 2776-04, 1987-08 #### [facility] ([id number]) [address], [address] [place] [address] ALP [Catalytic activity/Vol] 35 U/L Low 39-130 [facility] Comment on above: Performed By: #### C BCA, CMP, , 2776-04, 1987-08 #### [facility] ([id number]) [address] [place] [address] ALT [Catalytic activity/Vol] 8 U/L Normal 0-31 [facility] Comment on above: Performed By: #### C BCA, CMP, , 2776-04, 1987-08 #### [facility] ([id number]) [address], [address] [place] [address] Anion gap [Moles/Vol] 9 mmol/L Normal 5-15 [facility] Comment on above: Performed By: #### C BCA, CMP, , 2776-04, 1987-08 #### [facility] ([id number]) [address], [address] [place] [address] AST [Catalytic activity/Vol] 10 U/L Normal 0-41 [facility] Comment on above: Performed By: #### C BCA, CMP, , 2776-04, 1987-08 #### [facility] ([id number]) [address], [address] [place] [address] Bilirubin [Mass/Vol] 0.3 mg/dL Normal 0.3-1.2 [facility] Comment on above: Performed By: #### C BCA, CMP, , 2776-04, 1987-08 #### [facility] ([id number]) [address] [place] [address] Calcium [Mass/Vol] 8.6 mg/dL Normal 8.5-10.5 [facility] Comment on above: Performed By: #### C BCA, CMP, , 2776-04, 1987-08 #### [facility] ([id number]) [address] [place] [address] Chloride [Moles/Vol] 106 mmol/L Normal 98-109 [facility] Comment on above: Performed By: #### C BCA, CMP, , 2776-04, 1987-08 #### [facility] ([id number]) [address], [address] [place] [address] CO2 [Moles/Vol] 25 mmol/L Normal 22-32 [facility] Comment on above: Performed By: #### C BCA, CMP, , 2776-04, 1987-08 #### [facility] ([id number]) [address], [address] [place] [address] Creatinine [Mass/Vol] 2.12 mg/dL High 0.40-1.00 [facility] Comment on above: Result Comment: METH OD TRACEABLE TO IDMS STANDARD Performed By: #### C BCA, CMP, , 2776-04, 1987-08 #### [facility] ([id number]) [address], [facility] [address] [place] [address] GFR/1.73 sq M.predicted among non-blacks MDRD (S/P/Bld) [Vol rate/Area] 26 mL/min/{1.73_m2} Low >59 [facility] Comment on above: Result Comment: Reported eGFR is based on the CKD-EPI 2020 equation that does not use a race coefficient. Performed By: #### C VIRGILIO CMP, , 2776-04, 1987-08 #### [facility] ([id number]) [address], [address] [place] [address] Glucose [Mass/Vol] 81 mg/dL Normal 65-99 [facility] Comment on above: Performed By: #### C VIRGILIO CMP, , 2776-04, 1987-08 #### [facility] ([id number]) [address], [address] [place] [address] Potassium [Moles/Vol] 4.1 mmol/L Normal 3.5-5.0 [facility] Comment on above: Performed By: #### C VIRGILIO, CMP, , 2776-04, 1987-08 #### [facility] ([id number]) [address], [address] [place] [address] Protein [Mass/Vol] 4.9 g/dL Low 6.0-8.0 [facility] Comment on above: Performed By: #### C BCA, CMP, , 2776-04, 1987-08 #### [facility] ([id number]) [address], [address] [place] [address] Sodium [Moles/Vol] 140 mmol/L Normal 134-146 [facility] Comment on above: Performed By: #### C BCA, CMP, , 2776-04, 1987-08 #### [facility] ([id number]) [address], [address] [place] [address] Urea nitrogen [Mass/Vol] 58 mg/dL High 5-23 [facility] Comment on above: Performed By: #### C VIRGILIO, CMP, , 2776-04, 1987-08 #### [facility] ([id number]) [address], [address] [place] [address] Calcium.ionized (Bld) [Mass/ Vol]on 10-25-2023 IONIZED CALCIUM 4.8 mg/dL Normal 4.5-5.3 [facility] Comment on above: Performed By: #### C VIRGILIO, CMP, , 2776-04, 1987-08 #### [facility] ([id number]) [address], [address] [place] [address] MAGNESIUMon 10-25-2023 Magnesium [Mass/Vol] 2.1 mg/dL Normal 1.8-2.6 [facility] Comment on above: Performed By: #### C VIRGILIO, CMP, , 2776-04, 1987-08 #### [facility] ([id number]) [address], [address] [place] [address] PHOSPHORUSon 10-25-2023 Phosphate [Mass/Vol] 3.5 mg/dL Normal 2.4-4.9 [facility] Comment on above: Performed By: #### C BCA, CMP, , 2776-04, 1987-08 #### [facility] ([id number]) [address], [address] [place] [address] CBC AND AUTO DIFFon 10-24-19 24 ABSOLUTE BASOPHIL 0.0 X10E9/L Normal 0.0-0.2 [facility] Comment on above: Performed By: #### Shahla BCA, CMP, , 2776-04, 1987-08 #### [facility] ([id number]) [address], [address] [place] [address] ABSOLUTE NEUTROPHIL 7.2 X10E9/L High 1.5-6.6 [facility] Comment on above: Performed By: #### C BCA, CMP, , 2776-04, 1987-08 #### [facility] ([id number]) [address], [address] [place] [address] Basophils/100 WBC (Bld) 0.1 % Normal [facility] Comment on above: Performed By: #### C BCA, CMP, , 2776-04, 1987-08 #### [facility] ([id number]) [address] [place] [address] Eosinophils (Bld) [#/Vol] 0.0 10*3/uL Normal 0.0-0.4 [facility] Comment on above: Performed By: #### C BCA, CMP, , 2776-04, 1987-08 #### [facility] ([id number]) [address] [place] [address] Eosinophils/100 WBC (Bld) 0.2 % Normal [facility] Comment on above: Performed By: #### C BCA, CMP, , 2776-04, 1987-08 #### [facility] ([id number]) [address] [place] [address] Erythrocyte distribution width (RBC) [Ratio] 14.7 % Normal 11.5-15.0 [facility] Comment on above: Performed By: #### C BCA, CMP, , 2776-04, 1987-08 #### [facility] ([id number]) [address], [address] [place] [address] Hematocrit (Bld) [Volume fraction] 31.4 % Low 35-47 [facility] Comment on above: Performed By: #### C BCA, CMP, , 2776-04, 1987-08 #### [facility] ([id number]) [address], [address] [place] [address] Hemoglobin (Bld) [Mass/Vol] 10.5 g/dL Low 11.7-15.5 [facility] Comment on above: Performed By: #### Shahla BCA, CMP, , 2776-04, 1987-08 #### [facility] ([id number]) [address] [place] [address] Lymphocytes (Bld) [#/Vol] 3.1 10*3/uL Normal 1.0-3.5 [facility] Comment on above: Performed By: #### Shahla BCA, CMP, , 2776-04, 1987-08 #### [facility] ([id number]) [address] [place] [address] Lymphocytes/100 WBC (Bld) 27.5 % Normal [facility] Comment on above: Performed By: #### Shahla POOLE, CMP, , 2776-04, 1987-08 #### [facility] ([id number]) [address] [place] [address] MCH (RBC) [Entitic mass] 28.1 pg Normal 27-34 [facility] Comment on above: Performed By: #### Shahla BCA, CMP, , 2776-04, 1987-08 #### [facility] ([id number]) [address], [address] [place] [address] MCHC (RBC) [Mass/Vol] 33.3 g/dL Normal 32-36 [facility] Comment on above: Performed By: #### Shahla BCA, CMP, , 2776-04, 1987-08 #### [facility] ([id number]) [address], [address] [place] [address] MCV (RBC) [Entitic vol] 84 fL Normal 80-100 [facility] Comment on above: Performed By: #### C BCA, CMP, , 2776-04, 1987-08 #### [facility] ([id number]) [address], [address] [place] [address] Monocytes (Bld) [#/Vol] 0.8 10*3/uL Normal 0-0.9 [facility] Comment on above: Performed By: #### C BCA, CMP, , 2776-04, 1987-08 #### [facility] ([id number]) [address], [address] [place] [address] Monocytes/100 WBC (Bld) 7.6 % Normal [facility] Comment on above: Performed By: #### Shahla BCA, CMP, , 2776-04, 1987-08 #### [facility] ([id number]) [address], [address] [place] [address] Neutrophils/100 WBC (Bld) 64.6 % Normal [facility] Comment on above: Performed By: #### Shahla BCA, CMP, , 2776-04, 1987-08 #### [facility] ([id number]) [address], [address] [place] [address] Platelet mean volume (Bld) [Entitic vol] 9.6 fL Normal 7-12 [facility] Comment on above: Performed By: #### Shahla BCA, CMP, , 2776-04, 1987-08 #### [facility] ([id number]) [address], [address] [place] [address] Platelets (Bld) [#/Vol] 304 10*3/uL Normal 150-450 [facility] Comment on above: Performed By: #### Shahla BCA, CMP, , 2776-04, 1987-08 #### [facility] ([id number]) [address], [address] [place] [address] RBC COUNT 3.73 X10E12/L Low 3.80-5.20 [facility] Comment on above: Performed By: #### C BCA, CMP, , 2776-04, 1987-08 #### [facility] ([id number]) [address], [address] [place] [address] WBC (Bld) [#/Vol] 11.2 10*3/uL High 4.0-11.0 [facility] Comment on above: Performed By: #### C BCA, CMP, , 2776-04, 1987-08 #### [facility] ([id number]) [address], [address] [place] [address] COMPREHENSIVE METABOLIC PANE Phu 10-24-2023 Albumin [Mass/Vol] 3.2 g/dL Normal 3.2-5.3 [facility] Comment on above: Performed By: #### C BCA, CMP, , 2776-04, 1987-08 #### [facility] ([id number]) [address] [place] [address] ALP [Catalytic activity/Vol] 37 U/L Low 39-130 [facility] Comment on above: Performed By: #### C BCA, CMP, , 2776-04, 1987-08 #### [facility] ([id number]) [address] [place] [address] ALT [Catalytic activity/Vol] 8 U/L Normal 0-31 [facility] Comment on above: Performed By: #### C BCA, CMP, , 2776-04, 1987-08 #### [facility] ([id number]) [address], [address] [place] [address] Anion gap [Moles/Vol] 11 mmol/L Normal 5-15 [facility] Comment on above: Performed By: #### C BCA, CMP, , 2776-04, 1987-08 #### [facility] ([id number]) [address], [address] [place] [address] AST [Catalytic activity/Vol] 9 U/L Normal 0-41 [facility] Comment on above: Performed By: #### C BCA, CMP, , 2776-04, 1987-08 #### [facility] ([id number]) [address] [place] [address] Bilirubin [Mass/Vol] 0.3 mg/dL Normal 0.3-1.2 [facility] Comment on above: Performed By: #### C BCA, CMP, , 2776-04, 1987-08 #### [facility] ([id number]) [address] [place] [address] Calcium [Mass/Vol] 8.7 mg/dL Normal 8.5-10.5 [facility] Comment on above: Performed By: #### C BCA, CMP, , 2776-04, 1987-08 #### [facility] ([id number]) [address] [place] [address] Chloride [Moles/Vol] 103 mmol/L Normal 98-109 [facility] Comment on above: Performed By: #### C BCA, CMP, , 2776-04, 1987-08 #### [facility] ([id number]) [address] [place] [address] CO2 [Moles/Vol] 26 mmol/L Normal 22-32 [facility] Comment on above: Performed By: #### C BCA, CMP, , 2776-04, 1987-08 #### [facility] ([id number]) [address] [address] Creatinine [Mass/Vol] 2.33 mg/dL High 0.40-1.00 [facility] Comment on above: Result Comment: METH OD TRACEABLE TO IDMS STANDARD Performed By: #### C EDEL POOLE, , 2776-04, 1987-08 #### [facility] ([id number]) [address] [address] GFR/1.73 sq M.predicted among non-blacks MDRD (S/P/Bld) [Vol rate/Area] 24 mL/min/{1.73_m2} Low >59 [facility] Comment on above: Result Comment: Reported eGFR is based on the CKD-EPI 2020 equation that does not use a race coefficient. Performed By: #### C EDEL POOLE, , 2776-04, 1987-08 #### [facility] ([id number]) [address] [address] Glucose [Mass/Vol] 80 mg/dL Normal 65-99 [facility] Comment on above: Performed By: #### C EDEL POOLE, , 2776-04, 1987-08 #### [facility] ([id number]) [address] [address] Potassium [Moles/Vol] 3.9 mmol/L Normal 3.5-5.0 [facility] Comment on above: Performed By: #### C VIRGILIO CMP, , 2776-04, 1987-08 #### [facility] ([id number]) [address] [address] Protein [Mass/Vol] 5.1 g/dL Low 6.0-8.0 [facility] Comment on above: Performed By: #### C VIRGILIO CMP, , 2776-04, 1987-08 #### [facility] ([id number]) [address] [place] [address] Sodium [Moles/Vol] 140 mmol/L Normal 134-146 [facility] Comment on above: Performed By: #### C VIRGILIO CMP, , 2776-04, 1987-08 #### [facility] ([id number]) [address], [address] [place] [address] Urea nitrogen [Mass/Vol] 67 mg/dL High 5-23 [facility] Comment on above: Performed By: #### C VIRGILIO, CMP, , 2776-04, 1987-08 #### [facility] ([id number]) [address], [address] [place] [address] Calcium.ionized (Bld) [Mass/ Vol]on 10-24-2023 IONIZED CALCIUM 4.7 mg/dL Normal 4.5-5.3 [facility] Comment on above: Performed By: #### Shahla POOLE CMP, , 2776-04, 1987-08 #### [facility] ([id number]) [address], [address] [place] [address] HBV core Ab IA Qlon 10-24-19 ANTI HBc Negative Normal NEG [facility] Comment on above: Performed By: #### Shahla POOLE, CMP, , 2776-04, 1987-08 #### [facility] ([id number]) [address], [address] [place] [address] HBV surface Ag IA Qlon 10-23 HEPATITIS B SURF AG Negative Normal NEG [facility] Comment on above: Performed By: #### C VIRGILIO, CMP, , 2776-04, 1987-08 #### [facility] ([id number]) [address], [address] [place] [address] MAGNESIUMon 10-24-2023 Magnesium [Mass/Vol] 2.2 mg/dL Normal 1.8-2.6 [facility] Comment on above: Performed By: #### C VIRGILIO, CMP, , 2776-04, 1987-08 #### [facility] ([id number]) [address], [address] [place] [address] PHOSPHORUSon 10-24-2023 Phosphate [Mass/Vol] 3.4 mg/dL Normal 2.4-4.9 [facility] Comment on above: Performed By: #### C BCA, CMP, , 2776-04, 1987-08 #### [facility] ([id number]) [address], [address] [place] [address] CBC AND AUTO DIFFon 10-23-19 24 Band form neutrophils/100 WBC (Bld) 2.0 % Normal [facility] Comment on above: Performed By: #### Shahla POOLE, CMP, , 2776-04, 1987-08 #### [facility] ([id number]) [address], [address] [place] [address] Erythrocyte distribution width (RBC) [Ratio] 14.6 % Normal 11.5-15.0 [facility] Comment on above: Performed By: #### Shahla POOLE, CMP, , 2776-04, 1987-08 #### [facility] ([id number]) [address], [facility] [address] [place] [address] Hematocrit (Bld) [Volume fraction] 31.6 % Low 35-47 [facility] Comment on above: Performed By: #### Shahla BCA, CMP, , 2776-04, 1987-08 #### [facility] ([id number]) [address], [facility] [address] [place] [address] Hemoglobin (Bld) [Mass/Vol] 10.5 g/dL Low 11.7-15.5 [facility] Comment on above: Performed By: #### Shahla BCA, CMP, , 2776-04, 1987-08 #### [facility] ([id number]) [address], [address] [place] [address] Lymphocytes (Bld) [#/Vol] 2.0 10*3/uL Normal 1.0-3.5 [facility] Comment on above: Performed By: #### Shahla POOLE CMP, , 2776-04, 1987-08 #### [facility] ([id number]) [address], [address] [place] [address] Lymphocytes/100 WBC (Bld) 21.0 % Normal [facility] Comment on above: Performed By: #### Shahla POOLE, CMP, , 2776-04, 1987-08 #### [facility] ([id number]) [address], [address] [place] [address] MCH (RBC) [Entitic mass] 28.2 pg Normal 27-34 [facility] Comment on above: Performed By: #### Shahla POOLE, CMP, , 2776-04, 1987-08 #### [facility] ([id number]) [address], [address] [place] [address] MCHC (RBC) [Mass/Vol] 33.3 g/dL Normal 32-36 [facility] Comment on above: Performed By: #### Shahla POOLE CMP, , 2776-04, 1987-08 #### [facility] ([id number]) [address], [address] [place] [address] MCV (RBC) [Entitic vol] 85 fL Normal 80-100 [facility] Comment on above: Performed By: #### Shahla BCA, CMP, , 2776-04, 1987-08 #### [facility] ([id number]) [address], [address] [place] [address] Monocytes (Bld) [#/Vol] 1.8 10*3/uL High 0-0.9 [facility] Comment on above: Performed By: #### C BCA, CMP, , 2776-04, 1987-08 #### [facility] ([id number]) [address], [address] [place] [address] Monocytes/100 WBC (Bld) 19.0 % Normal [facility] Comment on above: Performed By: #### Shahla BCA, CMP, , 2776-04, 1987-08 #### [facility] ([id number]) [address], [address] [place] [address] Neutrophils (Bld) [#/Vol] 5.8 10*3/uL Normal 1.5-6.6 [facility] Comment on above: Performed By: #### Shahla BCA, CMP, , 2776-04, 1987-08 #### [facility] ([id number]) [address], [address] [place] [address] Platelet mean volume (Bld) [Entitic vol] 9.3 fL Normal 7-12 [facility] Comment on above: Performed By: #### Shahla BCA, CMP, , 2776-04, 1987-08 #### [facility] ([id number]) [address], [address] [place] [address] Platelets (Bld) [#/Vol] 297 10*3/uL Normal 150-450 [facility] Comment on above: Performed By: #### Shahla BCA, CMP, , 2776-04, 1987-08 #### [facility] ([id number]) [address], [address] [place] [address] RBC COUNT 3.73 X10E12/L Low 3.80-5.20 [facility] Comment on above: Performed By: #### Shahla BCA, CMP, , 2776-04, 1987-08 #### [facility] ([id number]) [address], [address] [place] [address] RBC morphology finding Nom (Bld) NORMAL Normal [facility] Comment on above: Performed By: #### C BCA, CMP, , 2776-04, 1987-08 #### [facility] ([id number]) [address], [address] [place] [address] SEG NEUTROPHIL 58.0 % Normal [facility] Comment on above: Performed By: #### C BCA, CMP, , 2776-04, 1987-08 #### [facility] ([id number]) [address], [address] [place] [address] WBC (Bld) [#/Vol] 9.6 10*3/uL Normal 4.0-11.0 [facility] Comment on above: Performed By: #### C BCA, CMP, , 2776-04, 1987-08 #### [facility] ([id number]) [address], [address] [place] [address] COMPREHENSIVE METABOLIC PANE [facility] 10-23-2023 Albumin [Mass/Vol] 3.2 g/dL Normal 3.2-5.3 [facility] Comment on above: Performed By: #### C BCA, CMP, , 2776-04, 1987-08 #### [facility] ([id number]) [address], [address] [place] [address] ALP [Catalytic activity/Vol] 38 U/L Low 39-130 [facility] Comment on above: Performed By: #### C BCA, CMP, , 2776-04, 1987-08 #### [facility] ([id number]) [address], [address] [place] [address] ALT [Catalytic activity/Vol] 10 U/L Normal 0-31 [facility] Comment on above: Performed By: #### C BCA, CMP, , 2776-04, 1987-08 #### [facility] ([id number]) [address], [address] [place] [address] Anion gap [Moles/Vol] 9 mmol/L Normal 5-15 [facility] Comment on above: Performed By: #### C BCA, CMP, , 2776-04, 1987-08 #### [facility] ([id number]) [address], [address] [place] [address] AST [Catalytic activity/Vol] 10 U/L Normal 0-41 [facility] Comment on above: Performed By: #### C BCA, CMP, , 2776-04, 1987-08 #### [facility] ([id number]) [address], [address] [place] [address] Bilirubin [Mass/Vol] 0.3 mg/dL Normal 0.3-1.2 [facility] Comment on above: Performed By: #### C BCA, CMP, , 2776-04, 1987-08 #### [facility] ([id number]) [address], [address] [place] [address] Calcium [Mass/Vol] 8.7 mg/dL Normal 8.5-10.5 [facility] Comment on above: Performed By: #### C BCA, CMP, , 2776-04, 1987-08 #### [facility] ([id number]) [address], [address] [place] [address] Chloride [Moles/Vol] 102 mmol/L Normal 98-109 [facility] Comment on above: Performed By: #### C BCA, CMP, , 2776-04, 1987-08 #### [facility] ([id number]) [address], [address] [place] [address] CO2 [Moles/Vol] 29 mmol/L Normal 22-32 [facility] Comment on above: Performed By: #### C BCA, CMP, , 2776-04, 1987-08 #### [facility] ([id number]) [address], [address] [place] [address] Creatinine [Mass/Vol] 2.68 mg/dL High 0.40-1.00 [facility] Comment on above: Result Comment: METH OD TRACEABLE TO IDMS STANDARD Performed By: #### C EDEL POOLE, , 2776-04, 1987-08 #### [facility] ([id number]) [address], [address] [place] [address] GFR/1.73 sq M.predicted among non-blacks MDRD (S/P/Bld) [Vol rate/Area] 20 mL/min/{1.73_m2} Low >59 [facility] Comment on above: Result Comment: Reported eGFR is based on the CKD-EPI 2020 equation that does not use a race coefficient. Performed By: #### C EDEL POOLE, , 2776-04, 1987-08 #### [facility] ([id number]) [address], [address] [place] [address] Glucose [Mass/Vol] 86 mg/dL Normal 65-99 [facility] Comment on above: Performed By: #### C EDEL POOLE, , 2776-04, 1987-08 #### [facility] ([id number]) [address], [address] [place] [address] Potassium [Moles/Vol] 3.7 mmol/L Normal 3.5-5.0 [facility] Comment on above: Performed By: #### C VIRGILIO CMP, , 2776-04, 1987-08 #### [facility] ([id number]) [address], [address] [place] [address] Protein [Mass/Vol] 5.2 g/dL Low 6.0-8.0 [facility] Comment on above: Performed By: #### C BCA, CMP, , 2776-04, 1987-08 #### [facility] ([id number]) [address], [address] [place] [address] Sodium [Moles/Vol] 140 mmol/L Normal 134-146 [facility] Comment on above: Performed By: #### C BCA, CMP, , 2776-04, 1987-08 #### [facility] ([id number]) [address], [address] [place] [address] Urea nitrogen [Mass/Vol] 72 mg/dL High 5-23 [facility] Comment on above: Performed By: #### C BCA, CMP, , 2776-04, 1987-08 #### [facility] ([id number]) [address], [address] [place] [address] Calcium.ionized (Bld) [Mass/ Vol]on 10-23-2023 IONIZED CALCIUM 4.8 mg/dL Normal 4.5-5.3 [facility] Comment on above: Performed By: #### C VIRGILIO, CMP, , 2776-04, 1987-08 #### [facility] ([id number]) [address], [address] [place] [address] MAGNESIUMon 10-23-2023 Magnesium [Mass/Vol] 2.4 mg/dL Normal 1.8-2.6 [facility] Comment on above: Performed By: #### C BCA, CMP, , 2776-04, 1987-08 #### [facility] ([id number]) [address], [address] [place] [address] PHOSPHORUSon 10-23-2023 Phosphate [Mass/Vol] 4.0 mg/dL Normal 2.4-4.9 [facility] Comment on above: Performed By: #### C BCA, CMP, , 2776-04, 1987-08 #### [facility] ([id number]) [address], [address] [place] [address] CBC AND AUTO DIFFon 10-22-19 Erythrocyte distribution width (RBC) [Ratio] 15.0 % Normal 11.5-15.0 [facility] Comment on above: Performed By: #### Shahla POOLE CMP, , 2776-04, 1987-08 #### [facility] ([id number]) [address], [facility] [address] [place] [address] Hematocrit (Bld) [Volume fraction] 32.1 % Low 35-47 [facility] Comment on above: Performed By: #### Shahla POOLE [facility], , 2776-04, 1987-08 #### [facility] ([id number]) [address], [facility] [address] [place] [address] Hemoglobin (Bld) [Mass/Vol] 11.0 g/dL Low 11.7-15.5 [facility] Comment on above: Performed By: #### C VIRGILIO [facility], , 2776-04, 1987-08 #### [facility] ([id number]) [address] [address] [place] [address] Lymphocytes (Bld) [#/Vol] 1.2 10*3/uL Normal 1.0-3.5 [facility] Comment on above: Performed By: #### Shahla POOLE CMP, , 2776-04, 1987-08 #### [facility] ([id number]) [address] [address] [place] [address] Lymphocytes/100 WBC (Bld) 14.0 % Normal [facility] Comment on above: Performed By: #### Shahla BCA, CMP, , 2776-04, 1987-08 #### [facility] ([id number]) [address], [address] [place] [address] MCH (RBC) [Entitic mass] 28.8 pg Normal 27-34 [facility] Comment on above: Performed By: #### C BCA, CMP, , 2776-04, 1987-08 #### [facility] ([id number]) [address], [address] [place] [address] MCHC (RBC) [Mass/Vol] 34.3 g/dL Normal 32-36 [facility] Comment on above: Performed By: #### C BCA, CMP, , 2776-04, 1987-08 #### [facility] ([id number]) [address], [address] [place] [address] MCV (RBC) [Entitic vol] 84 fL Normal 80-100 [facility] Comment on above: Performed By: #### Shahla BCA, CMP, , 2776-04, 1987-08 #### [facility] ([id number]) [address], [address] [place] [address] Metamyelocytes/100 WBC (Bld) 1.0 % Normal [facility] Comment on above: Performed By: #### C BCA, CMP, , 2776-04, 1987-08 #### [facility] ([id number]) [address], [address] [place] [address] Monocytes (Bld) [#/Vol] 0.6 10*3/uL Normal 0-0.9 [facility] Comment on above: Performed By: #### C BCA, CMP, , 2776-04, 1987-08 #### [facility] ([id number]) [address], [address] [place] [address] Monocytes/100 WBC (Bld) 7.0 % Normal [facility] Comment on above: Performed By: #### C BCA, CMP, , 2776-04, 1987-08 #### [facility] ([id number]) [address], [address] [place] [address] MYELOCYTE 3.0 % Normal [facility] Comment on above: Performed By: #### C BCA, CMP, , 2776-04, 1987-08 #### [facility] ([id number]) [address], [address] [place] [address] Neutrophils (Bld) [#/Vol] 6.7 10*3/uL High 1.5-6.6 [facility] Comment on above: Performed By: #### C BCA, CMP, , 2776-04, 1987-08 #### [facility] ([id number]) [address], [address] [place] [address] Platelet mean volume (Bld) [Entitic vol] 9.4 fL Normal 7-12 [facility] Comment on above: Performed By: #### Shahla BCA, CMP, , 2776-04, 1987-08 #### [facility] ([id number]) [address], [address] [place] [address] Platelets (Bld) [#/Vol] 394 10*3/uL Normal 150-450 [facility] Comment on above: Performed By: #### Shahla BCA, CMP, , 2776-04, 1987-08 #### [facility] ([id number]) [address], [address] [place] [address] RBC COUNT 3.83 X10E12/L Normal 3.80-5.20 [facility] Comment on above: Performed By: #### C BCA, CMP, , 2776-04, 1987-08 #### [facility] ([id number]) [address], [address] [place] [address] RBC morphology finding Nom (Bld) NORMAL Normal [facility] Comment on above: Performed By: #### C BCA, CMP, , 2776-04, 1987-08 #### [facility] ([id number]) [address], [address] [place] [address] SEG NEUTROPHIL 75.0 % Normal [facility] Comment on above: Performed By: #### C BCA, CMP, , 2776-04, 1987-08 #### [facility] ([id number]) [address], [address] [place] [address] WBC (Bld) [#/Vol] 8.9 10*3/uL Normal 4.0-11.0 [facility] Comment on above: Performed By: #### C BCA, CMP, , 2776-04, 1987-08 #### [facility] ([id number]) [address], [address] [place] [address] COMPREHENSIVE METABOLIC PANE Phu 10-22-2023 Albumin [Mass/Vol] 3.4 g/dL Normal 3.2-5.3 [facility] Comment on above: Performed By: #### C BCA, CMP, , 2776-04, 1987-08 #### [facility] ([id number]) [address] [place] [address] ALP [Catalytic activity/Vol] 43 U/L Normal 39-130 [facility] Comment on above: Performed By: #### C BCA, CMP, , 2776-04, 1987-08 #### [facility] ([id number]) [address], [address] [place] [address] ALT [Catalytic activity/Vol] 9 U/L Normal 0-31 [facility] Comment on above: Performed By: #### C BCA, CMP, , 2776-04, 1987-08 #### [facility] ([id number]) [address], [address] [place] [address] Anion gap [Moles/Vol] 14 mmol/L Normal 5-15 [facility] Comment on above: Performed By: #### C BCA, CMP, , 2776-04, 1987-08 #### [facility] ([id number]) [address] [place] [address] AST [Catalytic activity/Vol] 12 U/L Normal 0-41 [facility] Comment on above: Performed By: #### C BCA, CMP, , 2776-04, 1987-08 #### [facility] ([id number]) [address] [place] [address] Bilirubin [Mass/Vol] 0.3 mg/dL Normal 0.3-1.2 [facility] Comment on above: Performed By: #### C BCA, CMP, , 2776-04, 1987-08 #### [facility] ([id number]) [address] [place] [address] Calcium [Mass/Vol] 8.9 mg/dL Normal 8.5-10.5 [facility] Comment on above: Performed By: #### C BCA, CMP, , 2776-04, 1987-08 #### [facility] ([id number]) [address] [place] [address] Chloride [Moles/Vol] 99 mmol/L Normal 98-109 [facility] Comment on above: Performed By: #### C BCA, CMP, , 2776-04, 1987-08 #### [facility] ([id number]) [address], [address] [place] [address] CO2 [Moles/Vol] 25 mmol/L Normal 22-32 [facility] Comment on above: Performed By: #### C BCA, CMP, , 2776-04, 1987-08 #### [facility] ([id number]) [address] [place] [address] Creatinine [Mass/Vol] 3.16 mg/dL High 0.40-1.00 [facility] Comment on above: Result Comment: METH OD TRACEABLE TO IDMS STANDARD Performed By: #### C EDEL POOLE, , 2776-04, 1987-08 #### [facility] ([id number]) [address], [facility] [address] [place] [address] GFR/1.73 sq M.predicted among non-blacks MDRD (S/P/Bld) [Vol rate/Area] 16 mL/min/{1.73_m2} Low >59 [facility] Comment on above: Result Comment: Reported eGFR is based on the CKD-EPI 2020 equation that does not use a race coefficient. Performed By: #### C EDEL POOLE, , 2776-04, 1987-08 #### [facility] ([id number]) [address] [address] Glucose [Mass/Vol] 109 mg/dL High 65-99 [facility] Comment on above: Performed By: #### C EDEL POOLE, , 2776-04, 1987-08 #### [facility] ([id number]) [address] [address] Potassium [Moles/Vol] 4.0 mmol/L Normal 3.5-5.0 [facility] Comment on above: Performed By: #### C EDEL POOLE, , 2776-04, 1987-08 #### [facility] ([id number]) [address] [address] [place] [address] Protein [Mass/Vol] 5.7 g/dL Low 6.0-8.0 [facility] Comment on above: Performed By: #### C VIRGILIO CMP, , 2776-04, 1987-08 #### [facility] ([id number]) [address], [address] [place] [address] Sodium [Moles/Vol] 138 mmol/L Normal 134-146 [facility] Comment on above: Performed By: #### C VIRGILIO, CMP, , 2776-04, 1987-08 #### [facility] ([id number]) [address] [place] [address] Urea nitrogen [Mass/Vol] 79 mg/dL High 5-23 [facility] Comment on above: Performed By: #### C VIRGILIO, CMP, , 2776-04, 1987-08 #### [facility] ([id number]) [address], [facility] [address] [place] [address] Calcium.ionized (Bld) [Mass/ Vol]on 10-22-2023 IONIZED CALCIUM 4.5 mg/dL Normal 4.5-5.3 [facility] Comment on above: Performed By: #### Shahla POOLE, CMP, , 2776-04, 1987-08 #### [facility] ([id number]) [address], [facility] [address] [place] [address] MAGNESIUMon 10-22-2023 Magnesium [Mass/Vol] 2.5 mg/dL Normal 1.8-2.6 [facility] Comment on above: Performed By: #### Shahla POOLE, CMP, , 2776-04, 1987-08 #### [facility] ([id number]) [address], [facility] [address] [place] [address] PHOSPHORUSon 10-22-2023 Phosphate [Mass/Vol] 4.7 mg/dL Normal 2.4-4.9 [facility] Comment on above: Performed By: #### Shahla POOLE, CMP, , 2776-04, 1987-08 #### [facility] ([id number]) [address], [facility] [address] [place] [address] Basement membrane IgG Qn (S) on 10-21-2023 Glomerular Base Memb IgG <0.2 Normal <1. 0 (Negative) [facility] Comment on above: Result Comment: NOTE Test Performed by: [facility] [address] [place] [address] Leadership Program Associate: Ledy Son Ph.D.; CLIA# [id number] Performed By: #### C BCA, CMP, , 2776-04, 1987-08 #### [facility] ([id number]) [address] [place] [address] CBC AND AUTO DIFFon 10-21-19 24 ABSOLUTE BASOPHIL 0.0 X10E9/L Normal 0.0-0.2 [facility] Comment on above: Performed By: #### C BCA, CMP, , 2776-04, 1987-08 #### [facility] ([id number]) [address] [place] [address] ABSOLUTE NEUTROPHIL 8.8 X10E9/L High 1.5-6.6 [facility] Comment on above: Performed By: #### C BCA, CMP, , 2776-04, 1987-08 #### [facility] ([id number]) [address] [place] [address] Basophils/100 WBC (Bld) 0.1 % Normal [facility] Comment on above: Performed By: #### Shahla BCA, CMP, , 2776-04, 1987-08 #### [facility] ([id number]) [address] [place] [address] Eosinophils (Bld) [#/Vol] 0.0 10*3/uL Normal 0.0-0.4 [facility] Comment on above: Performed By: #### C BCA, CMP, , 2776-04, 1987-08 #### [facility] ([id number]) [address] [place] [address] Eosinophils/100 WBC (Bld) 0.0 % Normal [facility] Comment on above: Performed By: #### C VIRGILIO CMP, , 2776-04, 1987-08 #### [facility] ([id number]) [address], [address] [place] [address] Erythrocyte distribution width (RBC) [Ratio] 15.1 % High 11.5-15.0 [facility] Comment on above: Performed By: #### C VIRGILIO, CMP, , 2776-04, 1987-08 #### [facility] ([id number]) [address], [facility] [address] [place] [address] Hematocrit (Bld) [Volume fraction] 30.9 % Low 35-47 [facility] Comment on above: Performed By: #### Shahal POOLE CMP, , 2776-04, 1987-08 #### [facility] ([id number]) [address], [address] [place] [address] Hemoglobin (Bld) [Mass/Vol] 10.7 g/dL Low 11.7-15.5 [facility] Comment on above: Performed By: #### Shahla POOLE, CMP, , 2776-04, 1987-08 #### [facility] ([id number]) [address], [address] [place] [address] Lymphocytes (Bld) [#/Vol] 1.1 10*3/uL Normal 1.0-3.5 [facility] Comment on above: Performed By: #### C BCA, CMP, , 2776-04, 1987-08 #### [facility] ([id number]) [address], [address] [place] [address] Lymphocytes/100 WBC (Bld) 10.9 % Normal [facility] Comment on above: Performed By: #### Shahla BCA, CMP, , 2776-04, 1987-08 #### [facility] ([id number]) [address], [address] [place] [address] MCH (RBC) [Entitic mass] 29.1 pg Normal 27-34 [facility] Comment on above: Performed By: #### C BCA, CMP, , 2776-04, 1987-08 #### [facility] ([id number]) [address], [address] [place] [address] MCHC (RBC) [Mass/Vol] 34.7 g/dL Normal 32-36 [facility] Comment on above: Performed By: #### C VIRGILIO, CMP, , 2776-04, 1987-08 #### [facility] ([id number]) [address], [address] [place] [address] MCV (RBC) [Entitic vol] 84 fL Normal 80-100 [facility] Comment on above: Performed By: #### C BCA, CMP, , 2776-04, 1987-08 #### [facility] ([id number]) [address], [address] [place] [address] Monocytes (Bld) [#/Vol] 0.2 10*3/uL Normal 0-0.9 [facility] Comment on above: Performed By: #### C VIRGILIO, CMP, , 2776-04, 1987-08 #### [facility] ([id number]) [address], [address] [place] [address] Monocytes/100 WBC (Bld) 2.2 % Normal [facility] Comment on above: Performed By: #### C BCA, CMP, , 2776-04, 1987-08 #### [facility] ([id number]) [address], [address] [place] [address] Neutrophils/100 WBC (Bld) 86.8 % Normal [facility] Comment on above: Performed By: #### C BCA, CMP, , 2776-04, 1987-08 #### [facility] ([id number]) [address], [address] [place] [address] Platelet mean volume (Bld) [Entitic vol] 9.5 fL Normal 7-12 [facility] Comment on above: Performed By: #### C BCA, CMP, , 2776-04, 1987-08 #### [facility] ([id number]) [address], [address] [place] [address] Platelets (Bld) [#/Vol] 297 10*3/uL Normal 150-450 [facility] Comment on above: Performed By: #### C BCA, CMP, , 2776-04, 1987-08 #### [facility] ([id number]) [address], [address] [place] [address] RBC COUNT 3.69 X10E12/L Low 3.80-5.20 [facility] Comment on above: Performed By: #### C BCA, CMP, , 2776-04, 1987-08 #### [facility] ([id number]) [address], [address] [place] [address] WBC (Bld) [#/Vol] 10.2 10*3/uL Normal 4.0-11.0 [facility] Comment on above: Performed By: #### C BCA, CMP, , 2776-04, 1987-08 #### [facility] ([id number]) [address], [address] [place] [address] COMPREHENSIVE METABOLIC PANE Phu 10-21-2023 Albumin [Mass/Vol] 3.6 g/dL Normal 3.2-5.3 [facility] Comment on above: Performed By: #### C BCA, CMP, , 2776-04, 1987-08 #### [facility] ([id number]) [address], [address] [place] [address] ALP [Catalytic activity/Vol] 46 U/L Normal 39-130 [facility] Comment on above: Performed By: #### C BCA, CMP, , 2776-04, 1987-08 #### [facility] ([id number]) [address], [address] [place] [address] ALT [Catalytic activity/Vol] 15 U/L Normal 0-31 [facility] Comment on above: Performed By: #### C BCA, CMP, , 2776-04, 1987-08 #### [facility] ([id number]) [address], [address] [place] [address] Anion gap [Moles/Vol] 12 mmol/L Normal 5-15 [facility] Comment on above: Performed By: #### C BCA, CMP, , 2776-04, 1987-08 #### [facility] ([id number]) [address], [address] [place] [address] AST [Catalytic activity/Vol] 18 U/L Normal 0-41 [facility] Comment on above: Performed By: #### C BCA, CMP, , 2776-04, 1987-08 #### [facility] ([id number]) [address], [address] [place] [address] Bilirubin [Mass/Vol] 0.3 mg/dL Normal 0.3-1.2 [facility] Comment on above: Performed By: #### C BCA, CMP, , 2776-04, 1987-08 #### [facility] ([id number]) [address], [address] [place] [address] Calcium [Mass/Vol] 8.8 mg/dL Normal 8.5-10.5 [facility] Comment on above: Performed By: #### C BCA, CMP, , 2776-04, 1987-08 #### [facility] ([id number]) [address], [address] [place] [address] Chloride [Moles/Vol] 96 mmol/L Low 98-109 [facility] Comment on above: Performed By: #### C VIRGILIO CMP, , 2776-04, 1987-08 #### [facility] ([id number]) [address], [address] [place] [address] CO2 [Moles/Vol] 28 mmol/L Normal 22-32 [facility] Comment on above: Performed By: #### C VIRGILOI CMP, , 2776-04, 1987-08 #### [facility] ([id number]) [address], [address] [place] [address] Creatinine [Mass/Vol] 3.71 mg/dL High 0.40-1.00 [facility] Comment on above: Result Comment: METH OD TRACEABLE TO IDMS STANDARD Performed By: #### C EDEL POOLE, , 2776-04, 1987-08 #### [facility] ([id number]) [address], [address] [place] [address] GFR/1.73 sq M.predicted among non-blacks MDRD (S/P/Bld) [Vol rate/Area] 13 mL/min/{1.73_m2} Low >59 [facility] Comment on above: Result Comment: Reported eGFR is based on the CKD-EPI 2020 equation that does not use a race coefficient. Performed By: #### C BCA, CMP, , 2776-04, 1987-08 #### [facility] ([id number]) [address], [address] [place] [address] Glucose [Mass/Vol] 131 mg/dL High 65-99 [facility] Comment on above: Performed By: #### C BCA, CMP, , 2776-04, 1987-08 #### [facility] ([id number]) [address], [address] [place] [address] Potassium [Moles/Vol] 4.6 mmol/L Normal 3.5-5.0 [facility] Comment on above: Performed By: #### C VIRGILIO, CMP, , 2776-04, 1987-08 #### [facility] ([id number]) [address], [address] [place] [address] Protein [Mass/Vol] 5.9 g/dL Low 6.0-8.0 [facility] Comment on above: Performed By: #### C VIRGILIO, CMP, , 2776-04, 1987-08 #### [facility] ([id number]) [address], [address] [place] [address] Sodium [Moles/Vol] 136 mmol/L Normal 134-146 [facility] Comment on above: Performed By: #### C VIRGILIO, CMP, , 2776-04, 1987-08 #### [facility] ([id number]) [address], [address] [place] [address] Urea nitrogen [Mass/Vol] 80 mg/dL High 5-23 [facility] Comment on above: Performed By: #### C BCA, CMP, , 2776-04, 1987-08 #### [facility] ([id number]) [address], [address] [place] [address] Calcium.ionized (Bld) [Mass/ Vol]on 10-21-2023 IONIZED CALCIUM 4.5 mg/dL Normal 4.5-5.3 [facility] Comment on above: Performed By: #### C BCA, CMP, , 2776-04, 1987-08 #### [facility] ([id number]) [address], [address] [place] [address] MAGNESIUMon 10-21-2023 Magnesium [Mass/Vol] 2.4 mg/dL Normal 1.8-2.6 [facility] Comment on above: Performed By: #### C BCA, CMP, , 2776-04, 1987-08 #### [facility] ([id number]) [address], [address] [place] [address] PHOSPHORUSon 10-21-2023 Phosphate [Mass/Vol] 5.5 mg/dL High 2.4-4.9 [facility] Comment on above: Performed By: #### C BCA, CMP, , 2776-04, 1987-08 #### [facility] ([id number]) [address], [address] [place] [address] CBC AND AUTO DIFFon 10-20-19 ABSOLUTE BASOPHIL 0.0 X10E9/L Normal 0.0-0.2 [facility] Comment on above: Performed By: #### C BCA, CMP, , 2776-04, 1987-08 #### [facility] ([id number]) [address], [address] [place] [address] ABSOLUTE NEUTROPHIL 14.6 X10E9/L High 1.5-6.6 [facility] Comment on above: Performed By: #### C BCA, CMP, , 2776-04, 1987-08 #### [facility] ([id number]) [address], [address] [place] [address] Basophils/100 WBC (Bld) 0.1 % Normal [facility] Comment on above: Performed By: #### C BCA, CMP, , 2776-04, 1987-08 #### [facility] ([id number]) [address], [address] [place] [address] Eosinophils (Bld) [#/Vol] 0.0 10*3/uL Normal 0.0-0.4 [facility] Comment on above: Performed By: #### C VIRGILIO, CMP, , 2776-04, 1987-08 #### [facility] ([id number]) [address] [address] [place] [address] Eosinophils/100 WBC (Bld) 0.0 % Normal [facility] Comment on above: Performed By: #### Shahla BCA, CMP, , 2776-04, 1987-08 #### [facility] ([id number]) [address], [address] [place] [address] Erythrocyte distribution width (RBC) [Ratio] 15.3 % High 11.5-15.0 [facility] Comment on above: Performed By: #### Shahla POOLE, CMP, , 2776-04, 1987-08 #### [facility] ([id number]) [address], [address] [place] [address] Hematocrit (Bld) [Volume fraction] 32.0 % Low 35-47 [facility] Comment on above: Performed By: #### Shahla POOLE, CMP, , 2776-04, 1987-08 #### [facility] ([id number]) [address] [address] [place] [address] Hemoglobin (Bld) [Mass/Vol] 10.5 g/dL Low 11.7-15.5 [facility] Comment on above: Performed By: #### Shahla POOLE, CMP, , 2776-04, 1987-08 #### [facility] ([id number]) [address] [address] [place] [address] Lymphocytes (Bld) [#/Vol] 1.7 10*3/uL Normal 1.0-3.5 [facility] Comment on above: Performed By: #### Shahla BCA, CMP, , 2776-04, 1987-08 #### [facility] ([id number]) [address], [address] [place] [address] Lymphocytes/100 WBC (Bld) 10.3 % Normal [facility] Comment on above: Performed By: #### C VIRGILIO CMP, , 2776-04, 1987-08 #### [facility] ([id number]) [address], [facility] [address] [place] [address] MCH (RBC) [Entitic mass] 27.7 pg Normal 27-34 [facility] Comment on above: Performed By: #### Shahla BCA, CMP, , 2776-04, 1987-08 #### [facility] ([id number]) [address], [facility] [address] [place] [address] MCHC (RBC) [Mass/Vol] 32.9 g/dL Normal 32-36 [facility] Comment on above: Performed By: #### Shahla POOLE CMP, , 2776-04, 1987-08 #### [facility] ([id number]) [address], [facility] [address] [place] [address] MCV (RBC) [Entitic vol] 84 fL Normal 80-100 [facility] Comment on above: Performed By: #### Shahla POOLE, CMP, , 2776-04, 1987-08 #### [facility] ([id number]) [address], [facility] [address] [place] [address] Monocytes (Bld) [#/Vol] 0.4 10*3/uL Normal 0-0.9 [facility] Comment on above: Performed By: #### Shahla BCA, CMP, , 2776-04, 1987-08 #### [facility] ([id number]) [address], [facility] [address] [place] [address] Monocytes/100 WBC (Bld) 2.2 % Normal [facility] Comment on above: Performed By: #### Shahla BCA, CMP, , 2776-04, 1987-08 #### [facility] ([id number]) [address], [address] [place] [address] Neutrophils/100 WBC (Bld) 87.4 % Normal [facility] Comment on above: Performed By: #### C BCA, CMP, , 2776-04, 1987-08 #### [facility] ([id number]) [address], [address] [place] [address] Platelet mean volume (Bld) [Entitic vol] 9.3 fL Normal 7-12 [facility] Comment on above: Performed By: #### C BCA, CMP, , 2776-04, 1987-08 #### [facility] ([id number]) [address], [address] [place] [address] Platelets (Bld) [#/Vol] 350 10*3/uL Normal 150-450 [facility] Comment on above: Performed By: #### C BCA, CMP, , 2776-04, 1987-08 #### [facility] ([id number]) [address], [address] [place] [address] RBC COUNT 3.80 X10E12/L Normal 3.80-5.20 [facility] Comment on above: Performed By: #### C BCA, CMP, , 2776-04, 1987-08 #### [facility] ([id number]) [address], [address] [place] [address] WBC (Bld) [#/Vol] 16.7 10*3/uL High 4.0-11.0 [facility] Comment on above: Performed By: #### C BCA, CMP, , 2776-04, 1987-08 #### [facility] ([id number]) [address], [address] [place] [address] COMPREHENSIVE METABOLIC PANE Phu 10-20-2023 Albumin [Mass/Vol] 3.6 g/dL Normal 3.2-5.3 [facility] Comment on above: Performed By: #### C BCA, CMP, , 2776-04, 1987-08 #### [facility] ([id number]) [address], [address] [place] [address] ALP [Catalytic activity/Vol] 53 U/L Normal 39-130 [facility] Comment on above: Performed By: #### C BCA, CMP, , 2776-04, 1987-08 #### [facility] ([id number]) [address], [address] [place] [address] ALT [Catalytic activity/Vol] 14 U/L Normal 0-31 [facility] Comment on above: Performed By: #### C BCA, CMP, , 2776-04, 1987-08 #### [facility] ([id number]) [address], [address] [place] [address] Anion gap [Moles/Vol] 13 mmol/L Normal 5-15 [facility] Comment on above: Performed By: #### C BCA, CMP, , 2776-04, 1987-08 #### [facility] ([id number]) [address], [address] [place] [address] AST [Catalytic activity/Vol] 27 U/L Normal 0-41 [facility] Comment on above: Performed By: #### C BCA, CMP, , 2776-04, 1987-08 #### [facility] ([id number]) [address], [address] [place] [address] Bilirubin [Mass/Vol] 0.3 mg/dL Normal 0.3-1.2 [facility] Comment on above: Performed By: #### C BCA, CMP, , 2776-04, 1987-08 #### [facility] ([id number]) [address], [address] [place] [address] Calcium [Mass/Vol] 9.1 mg/dL Normal 8.5-10.5 [facility] Comment on above: Performed By: #### C BCA, CMP, , 2776-04, 1987-08 #### [facility] ([id number]) [address], [address] [place] [address] Chloride [Moles/Vol] 94 mmol/L Low 98-109 [facility] Comment on above: Performed By: #### C BCA, CMP, , 2776-04, 1987-08 #### [facility] ([id number]) [address], [address] [place] [address] CO2 [Moles/Vol] 28 mmol/L Normal 22-32 [facility] Comment on above: Performed By: #### C BCA, CMP, , 2776-04, 1987-08 #### [facility] ([id number]) [address], [address] [place] [address] Creatinine [Mass/Vol] 3.58 mg/dL High 0.40-1.00 [facility] Comment on above: Result Comment: METH OD TRACEABLE TO IDMS STANDARD Performed By: #### C BCA, CMP, , 2776-04, 1987-08 #### [facility] ([id number]) [address], [address] [place] [address] GFR/1.73 sq M.predicted among non-blacks MDRD (S/P/Bld) [Vol rate/Area] 14 mL/min/{1.73_m2} Low >59 [facility] Comment on above: Result Comment: Reported eGFR is based on the CKD-EPI 2020 equation that does not use a race coefficient. Performed By: #### C BCA, CMP, , 2776-04, 1987-08 #### [facility] ([id number]) [address], [address] [place] [address] Glucose [Mass/Vol] 133 mg/dL High 65-99 [facility] Comment on above: Performed By: #### C BCA, CMP, , 2776-04, 1987-08 #### [facility] ([id number]) [address], [address] [place] [address] Potassium [Moles/Vol] 4.8 mmol/L Normal 3.5-5.0 [facility] Comment on above: Performed By: #### C BCA, CMP, , 2776-04, 1987-08 #### [facility] ([id number]) [address] [place] [address] Protein [Mass/Vol] 6.1 g/dL Normal 6.0-8.0 [facility] Comment on above: Performed By: #### C BCA, CMP, , 2776-04, 1987-08 #### [facility] ([id number]) [address], [address] [place] [address] Sodium [Moles/Vol] 135 mmol/L Normal 134-146 [facility] Comment on above: Performed By: #### C BCA, CMP, , 2776-04, 1987-08 #### [facility] ([id number]) [address], [address] [place] [address] Urea nitrogen [Mass/Vol] 70 mg/dL High 5-23 [facility] Comment on above: Performed By: #### C BCA, CMP, , 2776-04, 1987-08 #### [facility] ([id number]) [address] [place] [address] Calcium.ionized (Bld) [Mass/ Vol]on 10-20-2023 IONIZED CALCIUM 4.6 mg/dL Normal 4.5-5.3 [facility] Comment on above: Performed By: #### C BCA, CMP, 79598-8, 2777-1, 1987- #### [facility] ([id number]) [address], [address] [place] [address] IR BIOPSY RENAL PERC RTon IR BIOPSY [...] Mann MD on 10/20/2023 3:13 PM Normal [facility] MAGNESIUMon 10-20-2023 Magnesium [Mass/Vol] 2.3 mg/dL Normal 1.8-2.6 [facility] Comment on above: Performed By: #### C BCA, CMP, 93828-9, 2776-04, 1987-08 #### [facility] ([id number]) [address] [place] [address] [address] [place] [address] PHOSPHORUSon 10-20-2023 Phosphate [Mass/Vol] 6.3 mg/dL High 2.4-4.9 [facility] Comment on above: Performed By: #### C BCA, CMP, , 2776-04, 1987-08 #### [facility] ([id number]) [address] [place] [address], [address] [place] [address] Surgical Pathologyon 024 Surgical Pathology Normal [facility] Comment on above: Result Comment: [facility] [address] [place] [address] Surgical Pathology Consultation ADDENDUM [place] Patient Name:DANIELLE MONTANA:1965 (Age: 58)Gender:FTaken:4Reported:10/24/2023hysician(s):Wanda Mendez ([phone])Copy To:MD Natasha ROSALES M.D. Rec. #:[id number]: #[id number] Final Pathologic Diagnosis Right kidney, needle biopsy: Specimen sent to [facility] [employer] Report Electronically Signed Out [facility]/10/24/2023Trace Meza MD Addendum (PHS) Date Reported: 10/24/2023 Results of routine histology and immunofluorescence dated 10/24/2023 are received from Deidra Bustos M.D., [facility], [address] [place] [address] and are as follows: Final Diagnosis: Kidney, [...] addendum. Please see the complete report from [facility] in the patient's EMR. Electronically Signed Out Trace Meza MD Addendum (PHS) Date Reported: 11/02/2023 Results of Addendum (Electron Microscopy) dated are received from Deidra Bustos M.D., [facility], [address] [place] [address] [place] and are as follows: Paraffin-based immunofluorescence [...] case. Please see the complete report from [facility] in the patient's EMR. Electronically Signed Out Trace Mzea MD Addendum ([facility]) Date Reported: 11/08/2023 Results of Mass Spectrometry dated 11/07/2023 are received from Adan Yates M.D., Ph.D., [facility], [address] [place] [address] [place] and are as follows: MASS SPECTROMETRY Liquid chromatography tandem mass spectrometry (LC MS/MS) was performed on peptides extracted from glomeruli that were microdissected from the paraffin-embedded specimen. LC MS/MS did not detect a peptide profile consistent with any of the following antigens: PLA2R, THSD7A, EXT1/EXT2, NELL1, SEMA3B, CNTN1, NCAM1, PCSK6, PCDH7, FAT1 or NDNF. Please see the complete report from [facility] (more content not included)... CBC AND AUTO DIFFon 10-19-19 24 Band form neutrophils/100 WBC (Bld) 1.0 % Normal [facility] Comment on above: Performed By: #### C EDEL POOLE, , 2776-04, 1987-08 #### [facility] ([id number]) [address] [address] Erythrocyte distribution width (RBC) [Ratio] 14.9 % Normal 11.5-15.0 [facility] Comment on above: Performed By: #### Shahla POOLE CMP, , 2776-04, 1987-08 #### [facility] ([id number]) [address], [facility] [address] [place] [address] Hematocrit (Bld) [Volume fraction] 34.4 % Low 35-47 [facility] Comment on above: Performed By: #### C VIRGILIO CMP, , 2776-04, 1987-08 #### [facility] ([id number]) [address], [address] [address] Hemoglobin (Bld) [Mass/Vol] 11.4 g/dL Low 11.7-15.5 [facility] Comment on above: Performed By: #### C VIRGILIO CMP, , 2776-04, 1987-08 #### [facility] ([id number]) [address] [address] Lymphocytes (Bld) [#/Vol] 1.9 10*3/uL Normal 1.0-3.5 [facility] Comment on above: Performed By: #### C BCA, CMP, , 2776-04, 1987-08 #### [facility] ([id number]) [address] [place] [address] Lymphocytes/100 WBC (Bld) 15.0 % Normal [facility] Comment on above: Performed By: #### Shahla BCA, CMP, , 2776-04, 1987-08 #### [facility] ([id number]) [address] [place] [address] MCH (RBC) [Entitic mass] 27.8 pg Normal 27-34 [facility] Comment on above: Performed By: #### C BCA, CMP, , 2776-04, 1987-08 #### [facility] ([id number]) [address] [place] [address] MCHC (RBC) [Mass/Vol] 33.2 g/dL Normal 32-36 [facility] Comment on above: Performed By: #### Shahla POOLE, CMP, , 2776-04, 1987-08 #### [facility] ([id number]) [address], [facility] [address] [place] [address] MCV (RBC) [Entitic vol] 84 fL Normal 80-100 [facility] Comment on above: Performed By: #### Shahla BCA, CMP, , 2776-04, 1987-08 #### [facility] ([id number]) [address], [address] [place] [address] Metamyelocytes/100 WBC (Bld) 1.0 % Normal [facility] [place] Comment on above: Performed By: #### Shahla BCA, CMP, , 2776-04, 1987-08 #### [facility] ([id number]) [address], [address] [place] [address] Monocytes (Bld) [#/Vol] 0.1 10*3/uL Normal 0-0.9 [facility] Comment on above: Performed By: #### C BCA, CMP, , 2776-04, 1987-08 #### [facility] ([id number]) [address], [address] [place] [address] Monocytes/100 WBC (Bld) 1.0 % Normal P [facility] Comment on above: Performed By: #### Shahla BCA, CMP, , 2776-04, 1987-08 #### [facility] ([id number]) [address], [place] [facility] [place] [address] Neutrophils (Bld) [#/Vol] 10.4 10*3/uL High 1.5-6.6 [facility] Comment on above: Performed By: #### Shahla BCA, CMP, , 2776-04, 1987-08 #### [facility] ([id number]) [address], [address] [place] [address] Platelet mean volume (Bld) [Entitic vol] 9.3 fL Normal 7-12 [facility] Comment on above: Performed By: #### Shahla BCA, CMP, , 2776-04, 1987-08 #### [facility] ([id number]) [address], [address] [place] [address] Platelets (Bld) [#/Vol] 324 10*3/uL Normal 150-450 [facility] Comment on above: Performed By: #### Shahla BCA, CMP, , 2776-04, 1987-08 #### [facility] ([id number]) [address], [facility] [address] [place] [address] POLYCHROMASIA 1+ Abnormal NONE [facility] Comment on above: Performed By: #### Shahla BCA, CMP, , 2776-04, 1987-08 #### [facility] ([id number]) [address], [address] [place] [address] RBC COUNT 4.09 X10E12/L Normal 3.80-5.20 [facility] Comment on above: Performed By: #### C BCA, CMP, , 2776-04, 1987-08 #### [facility] ([id number]) [address], [address] [place] [address] SEG NEUTROPHIL 82.0 % Normal [facility] Comment on above: Performed By: #### C BCA, CMP, , 2776-04, 1987-08 #### [facility] ([id number]) [address], [address] [place] [address] WBC (Bld) [#/Vol] 12.5 10*3/uL High 4.0-11.0 [facility] Comment on above: Performed By: #### C BCA, CMP, , 2776-04, 1987-08 #### [facility] ([id number]) [address], [address] [place] [address] COMPREHENSIVE METABOLIC PANE Phu 10-19-2023 Albumin [Mass/Vol] 3.7 g/dL Normal 3.2-5.3 [facility] Comment on above: Performed By: #### C BCA, CMP, , 2776-04, 1987-08 #### [facility] ([id number]) [address], [address] [place] [address] ALP [Catalytic activity/Vol] 58 U/L Normal 39-130 [facility] Comment on above: Performed By: #### C BCA, CMP, , 2776-04, 1987-08 #### [facility] ([id number]) [address], [address] [place] [address] ALT [Catalytic activity/Vol] 10 U/L Normal 0-31 [facility] Comment on above: Performed By: #### C BCA, CMP, , 2776-04, 1987-08 #### [facility] ([id number]) [address], [address] [place] [address] Anion gap [Moles/Vol] 13 mmol/L Normal 5-15 [facility] Comment on above: Performed By: #### C BCA, CMP, , 2776-04, 1987-08 #### [facility] ([id number]) [address], [address] [place] [address] AST [Catalytic activity/Vol] 17 U/L Normal 0-41 [facility] Comment on above: Performed By: #### C BCA, CMP, , 2776-04, 1987-08 #### [facility] ([id number]) [address], [address] [place] [address] Bilirubin [Mass/Vol] 0.3 mg/dL Normal 0.3-1.2 [facility] Comment on above: Performed By: #### C BCA, CMP, , 2776-04, 1987-08 #### [facility] ([id number]) [address], [address] [place] [address] Calcium [Mass/Vol] 9.9 mg/dL Normal 8.5-10.5 [facility] Comment on above: Performed By: #### C BCA, CMP, , 2776-04, 1987-08 #### [facility] ([id number]) [address], [address] [place] [address] Chloride [Moles/Vol] 95 mmol/L Low 98-109 [facility] Comment on above: Performed By: #### C BCA, CMP, , 2776-04, 1987-08 #### [facility] ([id number]) [address], [address] [place] [address] CO2 [Moles/Vol] 28 mmol/L Normal 22-32 [facility] Comment on above: Performed By: #### C VIRGILIO, CMP, , 2776-04, 1987-08 #### [facility] ([id number]) [address], [address] [place] [address] Creatinine [Mass/Vol] 3.62 mg/dL High 0.40-1.00 [facility] Comment on above: Result Comment: METH OD TRACEABLE TO IDMS STANDARD Performed By: #### C VIRGILIO, CMP, , 2776-04, 1987-08 #### [facility] ([id number]) [address], [address] [place] [address] GFR/1.73 sq M.predicted among non-blacks MDRD (S/P/Bld) [Vol rate/Area] 14 mL/min/{1.73_m2} Low >59 [facility] Comment on above: Result Comment: Reported eGFR is based on the CKD-EPI 2020 equation that does not use a race coefficient. Performed By: #### C EDEL POOLE, , 2776-04, 1987-08 #### [facility] ([id number]) [address], [address] [place] [address] Glucose [Mass/Vol] 146 mg/dL High 65-99 [facility] Comment on above: Performed By: #### C VIRGILIO CMP, , 2776-04, 1987-08 #### [facility] ([id number]) [address], [address] [place] [address] Potassium [Moles/Vol] 5.2 mmol/L High 3.5-5.0 [facility] Comment on above: Performed By: #### C VIRGILIO, CMP, , 2776-04, 1987-08 #### [facility] ([id number]) [address], [address] [place] [address] Protein [Mass/Vol] 6.4 g/dL Normal 6.0-8.0 [facility] Comment on above: Performed By: #### C BCA, CMP, , 2776-04, 1987-08 #### [facility] ([id number]) [address], [address] [place] [address] Sodium [Moles/Vol] 136 mmol/L Normal 134-146 [facility] Comment on above: Performed By: #### C BCA, CMP, , 2776-04, 1987-08 #### [facility] ([id number]) [address], [address] [place] [address] Urea nitrogen [Mass/Vol] 53 mg/dL High 5-23 [facility] Comment on above: Performed By: #### C BCA, CMP, , 2776-04, 1987-08 #### [facility] ([id number]) [address], [address] [place] [address] CRP [Mass/Vol]on 10-19-2023 C REACTIVE PROTEIN 0.9 mg/dL High 0.000-0.7 4 4 [facility] Comment on above: Performed By: #### C BCA, CMP, , 2776-04, 1987-08 #### [facility] ([id number]) [address], [address] [place] [address] Calcium.ionized (Bld) [Mass/ Vol]on 10-19-2023 IONIZED CALCIUM 4.6 mg/dL Normal 4.5-5.3 [facility] Comment on above: Performed By: #### 3 8230-9 #### [facility] ([id number]) [address], [address] [place] [address] IMMUNOGLOBULINSon 10-19-2023 IgA [Mass/Vol] 109 mg/dL Normal 68-378 [facility] Comment on above: Performed By: #### P INR, 98849-2, IMGB #### [facility] ([id number]) [address], [address] [place] [address] IgG [Mass/Vol] 460 mg/dL Low 635-1741 [facility] Comment on above: Performed By: #### P INR, 82280-9, IMGB #### [facility] ([id number]) [address], [address] [place] [address] IgM [Mass/Vol] 98 mg/dL Normal 45-281 [facility] Comment on above: Performed By: #### P INR, 20030-1, IMGB #### [facility] ([id number]) [address], [address] [place] [address] MAGNESIUMon 10-19-2023 Magnesium [Mass/Vol] 2.0 mg/dL Normal 1.8-2.6 [facility] Comment on above: Performed By: #### C BCA, CMP, , 2776-04, 1987-08 #### [facility] ([id number]) [address], [address] [place] [address] PHOSPHORUSon 10-19-2023 Phosphate [Mass/Vol] 4.8 mg/dL Normal 2.4-4.9 [facility] Comment on above: Performed By: #### C BCA, CMP, , 2776-04, 1987-08 #### [facility] ([id number]) [address], [address] [place] [address] PLATELET FUNCTIONon 10-19-19 24 COLLAGEN/ADP 72 sec Normal 0-114 [facility] Comment on above: Performed By: #### P FA, PINR, 43778-3 #### [facility] ([id number]) [address], [address] [place] [address] COLLAGEN/EPINEPHRINE 81 sec Normal 0-179 [facility] Comment on above: Performed By: #### P FA, PINR, 09898-5 #### [facility] ([id number]) [address], [address] [place] [address] PFA INTERP Platelet function is normal. If patient Normal [facility] Comment on above: Result Comment: hist ory/physical examination gives strong indication of a bleeding disorder, consider testing for other etiologies. Performed By: #### P FA, PINR, 87082-1 #### [facility] ([id number]) [address], [address] [place] [address] PROTIME AND INRon 10-19-2023 INR Coag (PPP) [Relative time] 0.9 {INR} Normal 0.8-1.1 [facility] Comment on above: Performed By: #### C VIRGILIO CMP, , 2776-04, 1987-08 #### [facility] ([id number]) [address] [address] [place] [address] PT Coag (PPP) [Time] 10.4 s Normal 9.8-13.2 [facility] Comment on above: Performed By: #### C BCA, CMP, , 2776-04, 1987-08 #### [facility] ([id number]) [address] [address] [place] [address] INR Coag (PPP) [Relative time] 0.9 {INR} Normal 0.8-1.1 [facility] Comment on above: Performed By: #### P INR, 02699-1, IMGB #### [facility] ([id number]) [address] [address] [place] [address] PT Coag (PPP) [Time] 10.4 s Normal 9.8-13.2 [facility] Comment on above: Performed By: #### P INR, 56372-5, IMGB #### [facility] ([id number]) [address], [address] [place] [address] aPTT Coag (PPP) [Time]on aPTT Coag (Bld) [Time] 40 s High 26-37 [facility] Comment on above: Performed By: #### C BCA, CMP, , 2776-04, 1987-08 #### [facility] ([id number]) [address] [place] [address] aPTT Coag (Bld) [Time] 34 s Normal 26-37 [facility] Comment on above: Performed By: #### P INR, 50553-0, IMGB #### [facility] ([id number]) [address] [place] [address] Basement membrane IgG Qn (S) on 10-18-2023 Glomerular Base Memb IgG <0.2 Normal <1. 0 (Negative) [facility] Comment on above: Result Comment: NOTE Test Performed by: [place] [address] Leadership Program Associate: Ledy Son Ph.D.; CLIA# [id number] Performed By: #### 8 9579-7 #### [facility] ([id number]) [address] [place] [address] CBC AND AUTO DIFFon 10-18-19 24 ABSOLUTE BASOPHIL 0.1 X10E9/L Normal 0.0-0.2 [facility] Comment on above: Performed By: #### C VIRGILIO, CMP, , 2776-04 ####[facility] ([id number])[address] [place] [address] ABSOLUTE NEUTROPHIL 4.5 X10E9/L Normal 1.5-6.6 [facility] Comment on above: Performed By: #### C BCA, CMP, , 2776-04 ####[facility] ([id number])[address] [place] [address] Basophils/100 WBC (Bld) 1.0 % Normal P [facility] Comment on above: Performed By: #### C EDEL POOLE, , 2776-04 ####[facility] ([id number])[address] [place] [address] Eosinophils (Bld) [#/Vol] 0.4 10*3/uL Normal 0.0-0.4 [facility] Comment on above: Performed By: #### Shahla POOLE CMP, , 2776-04 ####[facility] ([id number])[address] [place] [address] Eosinophils/100 WBC (Bld) 5.1 % Normal [facility] Comment on above: Performed By: #### Shahla POOLE CMP, , 2776-04 ####[facility] ([id number])[address] [place] [address] Erythrocyte distribution width (RBC) [Ratio] 15.0 % Normal 11.5-15.0 [facility] Comment on above: Performed By: #### Shahla POOLE CMP, , 2776-04 ####[facility] ([id number])[address] [place] [address] Hematocrit (Bld) [Volume fraction] 31.7 % Low 35-47 [facility] Comment on above: Performed By: #### Shahla POOLE CMP, , 2776-04 ####[facility] ([id number])[address] [place] [address] Hemoglobin (Bld) [Mass/Vol] 10.5 g/dL Low 11.7-15.5 [facility] Comment on above: Performed By: #### Shahla POOLE CMP, , 2776-04 ####[facility] ([id number])[address] [place] [address] Lymphocytes (Bld) [#/Vol] 2.1 10*3/uL Normal 1.0-3.5 [facility] Comment on above: Performed By: #### Shahla POOLE CMP, , 2776-04 ####[facility] ([id number])[address] [place] [address] Lymphocytes/100 WBC (Bld) 27.3 % Normal [facility] Comment on above: Performed By: #### Shahla POOLE CMP, , 2776-04 ####[facility] ([id number])[address] [place] [address] MCH (RBC) [Entitic mass] 27.7 pg Normal 27-34 [facility] Comment on above: Performed By: #### Shahla POOLE CMP, , 2776-04 ####[facility] ([id number])[address] [place] [address] MCHC (RBC) [Mass/Vol] 33.1 g/dL Normal 32-36 [facility] Comment on above: Performed By: #### Shahla POOLE CMP, , 2776-04 ####[facility] ([id number])[address] [place] [address] MCV (RBC) [Entitic vol] 84 fL Normal 80-100 [facility] Comment on above: Performed By: #### Shahla POOLE CMP, , 2776-04 ####[facility] ([id number])[address] [place] [address] Monocytes (Bld) [#/Vol] 0.7 10*3/uL Normal 0-0.9 [facility] Comment on above: Performed By: #### Shahla POOLE CMP, , 2776-04 ####[facility] ([id number])[address] [place] [address] Monocytes/100 WBC (Bld) 9.1 % Normal [facility] Comment on above: Performed By: #### Shahla POOLE CMP, , 2776-04 ####[facility] ([id number])[address] [place] [address] Neutrophils/100 WBC (Bld) 57.5 % Normal [facility] Comment on above: Performed By: #### Shahla POOLE CMP, , 2776-04 ####[facility] ([id number])[address] [place] [address] Platelet mean volume (Bld) [Entitic vol] 8.9 fL Normal 7-12 [facility] Comment on above: Performed By: #### Shahla POOLE CMP, , 2776-04 ####[facility] ([id number])[address] [place] [address] Platelets (Bld) [#/Vol] 328 10*3/uL Normal 150-450 [facility] Comment on above: Performed By: #### Shahla POOLE CMP, , 2776-04 ####[facility] ([id number])[address] [place] [address] RBC COUNT 3.77 X10E12/L Low 3.80-5.20 [facility] Comment on above: Performed By: #### Shahla POOLE CMP, , 2776-04 ####[facility] ([id number])[address] [place] [address] WBC (Bld) [#/Vol] 7.8 10*3/uL Normal 4.0-11.0 [facility] Comment on above: Performed By: #### Shahla POOLE CMP, , 2776-04 ####[facility] ([id number])[address] [place] [address] CBC auto differentialon 06-2 6-2024 Basophils (Bld) [#/Vol] 0.1 10*3/uL [facility] Basophils/100 WBC (Bld) 1.0 % P [facility] Eosinophils (Bld) [#/Vol] 0.4 10*3/uL [facility] Eosinophils/100 WBC (Bld) 5.1 % [facility] Erythrocyte distribution width (RBC) [Ratio] 15.0 % 11.5 - 15.0 % [facility] Hematocrit (Bld) [Volume fraction] 31.7 % Low 35 - 47 % [facility] Hemoglobin (Bld) [Mass/Vol] 10.5 g/dL Low 11.7 - 15.5 g/dL [facility] Interpretation and review of laboratory results Abnormal [facility] Lymphocytes (Bld) [#/Vol] 2.1 10*3/uL [facility] Lymphocytes/100 WBC (Bld) 27.3 % [facility] MCH (RBC) [Entitic mass] 27.7 pg 27 - 34 pg [facility] MCHC (RBC) [Mass/Vol] 33.1 g/dL 32 - 3 6 g/dL [facility] MCV (RBC) [Entitic vol] 84 fL 80 - 100 fL [facility] Monocytes (Bld) [#/Vol] 0.7 10*3/uL [facility] Monocytes/100 WBC (Bld) 9.1 % P [facility] Neutrophils (Bld) [#/Vol] 4.5 10*3/uL [facility] Neutrophils/100 WBC (Bld) 57.5 % [facility] Platelet mean volume (Bld) [Entitic vol] 8.9 fL 7 - 12 fL [facility] Platelets (Bld) [#/Vol] 328 10*3/uL [facility] RBC (Bld) [#/Vol] 3.77 10*6/uL Low [facility] WBC corrected for nucl RBC Auto (Bld) [#/Vol] 7.8 [facility] COMPREHENSIVE METABOLIC PANE Phu 10-18-2023 Albumin [Mass/Vol] 3.1 g/dL Low 3.2-5.3 [facility] Comment on above: Performed By: #### C BCA, CMP, , 2776-04 ####[facility] ([id number])[address] [place] [address] ALP [Catalytic activity/Vol] 57 U/L Normal 39-130 [facility] Comment on above: Performed By: #### C BCA, CMP, , 2776-04 ####[facility] ([id number])[address] [place] [address] ALT [Catalytic activity/Vol] 10 U/L Normal 0-31 [facility] Comment on above: Performed By: #### C BCA, CMP, , 2776-04 ####[facility] ([id number])[address] [place] [address] Anion gap [Moles/Vol] 11 mmol/L Normal 5-15 [facility] Comment on above: Performed By: #### C BCA, CMP, , 2776-04 ####[facility] ([id number])[address] [place] [address] [place] [address] AST [Catalytic activity/Vol] 14 U/L Normal 0-41 [facility] Comment on above: Performed By: #### C BCA, CMP, , 2776-04 ####[facility] ([id number])[address] [place] [address] [place] [address] Bilirubin [Mass/Vol] 0.7 mg/dL Normal 0.3-1.2 [facility] Comment on above: Performed By: #### C BCA, CMP, , 2776-04 ####[facility] ([id number])[address] [place] [address] [place] [address] Calcium [Mass/Vol] 9.3 mg/dL Normal 8.5-10.5 [facility] Comment on above: Performed By: #### C EDEL POOLE, , 2776-04 ####[facility] ([id number])[address] [place] [address] Chloride [Moles/Vol] 97 mmol/L Low 98-109 [facility] Comment on above: Performed By: #### C EDEL POOLE, , 2776-04 ####[facility] ([id number])[address] [place] [address] CO2 [Moles/Vol] 29 mmol/L Normal 22-32 [facility] Comment on above: Performed By: #### C EDEL POOLE, , 2776-04 ####[facility] ([id number])[address] [place] [address] Creatinine [Mass/Vol] 2.98 mg/dL High 0.40-1.00 [facility] Comment on above: Result Comment: METH OD TRACEABLE TO IDMS STANDARD Performed By: #### C EDEL POOLE, , 2776-04 ####[facility] ([id number])[address] [place] [address] GFR/1.73 sq M.predicted among non-blacks MDRD (S/P/Bld) [Vol rate/Area] 18 mL/min/{1.73_m2} Low >59 [facility] Comment on above: Result Comment: Reported eGFR is based on the CKD-EPI 1 equation that does not use a race coefficient. Performed By: #### C EDEL POOLE, , 2776-04 ####[facility] ([id number])[address] [place] [address] Glucose [Mass/Vol] 92 mg/dL Normal 65-99 [facility] Comment on above: Performed By: #### C EDEL POOLE, , 2776-04 ####[facility] ([id number])[address] [place] [address] Potassium [Moles/Vol] 4.2 mmol/L Normal 3.5-5.0 [facility] Comment on above: Performed By: #### C BCA, CMP, 90034-7, 2777-1 ####[facility] ([id number])[address] [place] [address] Protein [Mass/Vol] 6.0 g/dL Normal 6.0-8.0 [facility] Comment on above: Performed By: #### C VIRGILIO, CMP, , 7-1 ####[facility] ([id number])[address] [place] [address]183 Sodium [Moles/Vol] 137 mmol/L Normal 134-146 [facility] Comment on above: Performed By: #### C VIRGILIO, CMP, , 27771 ####[facility] ([id number])[address] [place] [address] Urea nitrogen [Mass/Vol] 37 mg/dL High 5-23 [facility] Comment on above: Performed By: #### C BCA, CMP, , 2777-1 ####[facility] ([id number])[address] [place] [address] Calcium.ionized (Bld) [Moles /Vol]on 10-18-2023 [facility] PORTABLE ICA 4.7 mg/dL Normal 4.5-5.3 [facility] Comment on above: Performed By: #### 8 9579-7 #### [facility] ([id number]) [address] [place] [address] Clinical Pathology Reviewon 10-18-2023 [facility] [address] [place] [address] Clinical Pathology Report Patient Name:DANIELLE MONTANA:1965 (Age: 58)Gender:FTaken:09/23eported:hysician(s):Soniya Flores MD ([phone])Copy To: Rec. 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 No monoclonal protein identified. Report Electronically Signed Out df/10/18/2023nicci Gomez MD [facility] [place] [address], License number: [id number]. Clinical History D17.9, I16.0, E87.6. URINE PROTEIN ELECTROPHORESIS SAMPLE NUMBER: [id number] RELATIVE ELECTROPHORETIC CONCENTRATIONS (%) ? 100.0 Urine Protein 1410 mg/L (Electrophoretic gels and densitometric tracings on file in lab.) Specimen(s) Received Urine Protein Electrophoresis Fee Codes(s): 1; 11063-56 COPATH [facility] Comprehensive metabolic pane phu 10-18-2023 Albumin [Mass/Vol] 3.1 g/dL Low 3.2 - 5.3 g/dL [facility] ALP [Catalytic activity/Vol] 57 U/L 39 - 130 U/L [facility] ALT No additional P-5'-P [Catalytic activity/Vol] 10 U/L 0 - 31 U/L [facility] Anion gap [Moles/Vol] 11 mmol/L 5 - 15 mmol/L [facility] AST [Catalytic activity/Vol] 14 U/L 0 - 41 U/L [facility] Bilirubin [Mass/Vol] 0.7 mg/dL 0.3 - 1 .2 mg/dL [facility] Calcium [Mass/Vol] 9.3 mg/dL 8.5 - 10. 5 mg/dL [facility] Chloride [Moles/Vol] 97 mmol/L Low 98 - 10 9 mmol/L [facility] CO2 [Moles/Vol] 29 mmol/L 22 - 32 mmol/L [facility] Creatinine [Mass/Vol] 2.98 mg/dL High 0.40 - 1.00 mg/dL [facility] Comment on above: METHOD TRACEABLE TO [facility] STANDARD eGFR (CKD-EPI)non-race dependent 18 Low - PINF [facility] Comment on above: Reported eGFR is based on the CKD-EPI 2020 equation that does not use a race coefficient. Glucose [Mass/Vol] 92 mg/dL 65 - 99 mg/dL [facility] Interpretation and review of laboratory results Abnormal [facility] Potassium [Moles/Vol] 4.2 mmol/L 3.5 - 5.0 mmol/L [facility] Protein [Mass/Vol] 6.0 g/dL 6.0 - 8.0 g/dL [facility] Sodium [Moles/Vol] 137 mmol/L 134 - 146 mmol/L [facility] Urea nitrogen [Mass/Vol] 37 mg/dL High 5 - 23 mg/dL [facility] MAGNESIUMon 10-18-2023 Magnesium [Mass/Vol] 2.0 mg/dL Normal 1.8-2.6 [facility] Comment on above: Performed By: #### C BCA, CMP, 98817-4, 2777-1 ####[facility] ([id number])[address] [place] [address] Magnesiumon 10-18-2023 Magnesium [Mass/Vol] 2.0 mg/dL 1.8 - 2 .6 mg/dL [facility] Myeloperoxidase IgG Qn (S)on 10-18-2023 Myeloperoxidase IgG >8.0 High <0.4 (Negative) [facility] Comment on above: Result Comment: NOTE Interpretation: Positive (>=1.0) Test Performed by: [address] [address] Leadership Program Associate: Ledy Son Ph.D.; CLIA# [id number] Performed By: #### 8 9579-7 #### [facility] ([id number]) [address] [place] [address] No Panel Informationon 10-17 [facility] PHOSPHORUSon 10-18-2023 Phosphate [Mass/Vol] 5.1 mg/dL High 2.4-4.9 [facility] Comment on above: Performed By: #### C VIRGILIO, CMP, 36582-3, 2777-1 ####[facility] ([id number])[address] [place] [address] POCT Ionized Calciumon 10-17 Calcium.ionized (Bld) [Moles/Vol] 4.7 mg/dL 4.5 - 5.3 mg/dL [facility] Phosphate [Mass/Vol]on 10-17 Interpretation and review of laboratory results Abnormal [facility] Phosphoruson 10-18-2023 Phosphate [Mass/Vol] 5.1 mg/dL High 2.4 - 4 .9 mg/dL [facility] CBC AND AUTO DIFFon 10-17-19 ABSOLUTE BASOPHIL 0.1 X10E9/L Normal 0.0-0.2 [facility] Comment on above: Performed By: #### C VIRGILIO, BMP, , 51804-0, 95951-3 #### [facility] ([id number]) [address] [place] [address] ABSOLUTE NEUTROPHIL 4.9 X10E9/L Normal 1.5-6.6 [facility] Comment on above: Performed By: #### C VIRGILIO, BMP, , 56365-4, 19524-2 #### [facility] ([id number]) [address] [place] [address] 65914 Basophils/100 WBC (Bld) 0.7 % Normal [facility] Comment on above: Performed By: #### C BCA, BMP, 51112-9, 15396-9, 44351-0 #### [facility] ([id number]) [address] [place] [address] 27651 Eosinophils (Bld) [#/Vol] 0.3 10*3/uL Normal 0.0-0.4 [facility] Comment on above: Performed By: #### C VIRGILIO, BMP, , 96930-8, 84540-0 #### [facility] ([id number]) [address] [place] [address] 23256 Eosinophils/100 WBC (Bld) 4.3 % Normal [facility] Comment on above: Performed By: #### C VIRGILIO, BMP, , 03456-7, 62643-7 #### [facility] ([id number]) [address] [place] [address] 51725 Erythrocyte distribution width (RBC) [Ratio] 14.7 % Normal 11.5-15.0 [facility] Comment on above: Performed By: #### Shahla POOLE, MARIO, , 89169-4, 39710-7 #### [facility] ([id number]) [address] [place] [address] 46094 Hematocrit (Bld) [Volume fraction] 30.3 % Low 35-47 [facility] Comment on above: Performed By: #### C VIRGILIO, BMP, , 86135-0, 18926-2 #### [facility] ([id number]) [address] [place] [address] 30474 Hemoglobin (Bld) [Mass/Vol] 10.1 g/dL Low 11.7-15.5 [facility] Comment on above: Performed By: #### C VIRGILIO, BMP, , 82313-9, 33926-1 #### [facility] ([id number]) [address] [place] [address] 90575 Lymphocytes (Bld) [#/Vol] 1.9 10*3/uL Normal 1.0-3.5 [facility] Comment on above: Performed By: #### C BCA, BMP, , 19971-8, 07411-5 #### [facility] ([id number]) [address] [place] [address] 67484 Lymphocytes/100 WBC (Bld) 24.6 % Normal [facility] Comment on above: Performed By: #### C BCA, BMP, , 62410-3, 75998-4 #### [facility] ([id number]) [address] [place] [address] 49813 MCH (RBC) [Entitic mass] 27.9 pg Normal 27-34 [facility] Comment on above: Performed By: #### C VIRGILIO, BMP, , 40757-4, 01528-4 #### [facility] ([id number]) [address] [place] [address] 02513 MCHC (RBC) [Mass/Vol] 33.4 g/dL Normal 32-36 [facility] Comment on above: Performed By: #### C BCA, BMP, , 66181-4, 83513-1 #### [facility] ([id number]) [address] [place] [address] 51605 MCV (RBC) [Entitic vol] 84 fL Normal 80-100 [facility] Comment on above: Performed By: #### Shahla BCA, BMP, , 43107-5, 19220-3 #### [facility] ([id number]) [address] [place] [address] 56359 Monocytes (Bld) [#/Vol] 0.6 10*3/uL Normal 0-0.9 [facility] Comment on above: Performed By: #### Shahla BCA, BMP, , 50056-4, 07381-4 #### [facility] ([id number]) [address] [place] [address] 42556 Monocytes/100 WBC (Bld) 8.3 % Normal [facility] Comment on above: Performed By: #### C BCA, BMP, 39762-1, 47995-2, 57729-3 #### [facility] ([id number]) [address] [place] [address] 14555 Neutrophils/100 WBC (Bld) 62.1 % Normal [facility] Comment on above: Performed By: #### C BCA, BMP, 85998-8, 53265-8, 63183-1 #### [facility] ([id number]) [address] [place] [address] 64768 Platelet mean volume (Bld) [Entitic vol] 9.0 fL Normal 7-12 [facility] Comment on above: Performed By: #### Shahla BCA, BMP, 40417-9, 99653-4, 30406-7 #### [facility] ([id number]) [address] [place] [address] 33956 Platelets (Bld) [#/Vol] 278 10*3/uL Normal 150-450 [facility] Comment on above: Performed By: #### C BCA, BMP, 06004-0, 98473-9, 38716-2 #### [facility] ([id number]) [address] [place] [address] 14809 RBC COUNT 3.62 X10E12/L Low 3.80-5.20 [facility] Comment on above: Performed By: #### C BCA, BMP, 95350-4, 29369-8, 52229-8 #### [facility] ([id number]) [address] [place] [address] 13621 WBC (Bld) [#/Vol] 7.9 10*3/uL Normal 4.0-11.0 [facility] Comment on above: Performed By: #### C BCA, BMP, 51213-2, 97184-7, 51356-1 #### [facility] ([id number]) [address] [facility] [place] [address] CBC auto differentialon 09-23 Basophils (Bld) [#/Vol] [...] 10-17-2023 Albumin [Mass/Vol] 3.0 g/dL Low 3.2-5.3 [facility] Comment on above: Performed By: #### C BCA, BMP, 81170-0, 37026-4, 44307-3 #### [facility] ([id number]) [address] [place] [address] 90616 ALP [Catalytic activity/Vol] 56 U/L Normal 39-130 [facility] Comment on above: Performed By: #### C BCA, BMP, 63598-8, 55743-9, 26662-2 #### [facility] ([id number]) [address] [place] [address] 30323 ALT [Catalytic activity/Vol] 10 U/L Normal 0-31 [facility] Comment on above: Performed By: #### C BCA, BMP, 21643-4, 93136-7, 51830-0 #### [facility] ([id number]) [address] [place] [address] 29204 Anion gap [Moles/Vol] 10 mmol/L Normal 5-15 [facility] Comment on above: Performed By: #### C BCA, BMP, 22976-6, 79166-5, 63740-6 #### [facility] ([id number]) [address] [place] [address] 73505 AST [Catalytic activity/Vol] 14 U/L Normal 0-41 [facility] Comment on above: Performed By: #### C BCA, BMP, 90237-9, 88164-2, 40397-5 #### [facility] ([id number]) [address] [place] [address] 81222 Bilirubin [Mass/Vol] 0.7 mg/dL Normal 0.3-1.2 [facility] Comment on above: Performed By: #### C BCA, BMP, 83324-9, 31968-9, 15409-4 #### [facility] ([id number]) [address] [place] [address] 69263 Calcium [Mass/Vol] 8.8 mg/dL Normal 8.5-10.5 [facility] Comment on above: Performed By: #### C BCA, BMP, 07995-1, 67089-8, 98093-5 #### [facility] ([id number]) [address] [place] [address] 93576 Chloride [Moles/Vol] 101 mmol/L Normal 98-109 [facility] Comment on above: Performed By: #### C BCA, BMP, 80463-2, 32087-7, 43158-6 #### [facility] ([id number]) [address] [place] [address] 90331 CO2 [Moles/Vol] 28 mmol/L Normal 22-32 [facility] Comment on above: Performed By: #### C BCA, BMP, 24912-3, 79238-9, 45868-6 #### [facility] ([id number]) [address] [place] [address] 42011 Creatinine [Mass/Vol] 2.77 mg/dL High 0.40-1.00 [facility] Comment on above: Result Comment: METH OD TRACEABLE TO IDMS STANDARD Performed By: #### C BCA, BMP, 22716-3, 75214-1, 45202-4 #### [facility] ([id number]) [address] [place] [address] 07027 GFR/1.73 sq M.predicted among non-blacks MDRD (S/P/Bld) [Vol rate/Area] 19 mL/min/{1.73_m2} Low >59 [facility] Comment on above: Result Comment: Reported eGFR is based on the CKD-EPI 2020 equation that does not use a race coefficient. Performed By: #### C BCA, BMP, 32505-9, 83498-2, 00164-0 #### [facility] ([id number]) [address] [place] [address] 08737 Glucose [Mass/Vol] 97 mg/dL Normal 65-99 [facility] Comment on above: Performed By: #### C BCA, BMP, , 94918-5, 51451-4 #### [facility] ([id number]) [address] [place] [address] 62174 Potassium [Moles/Vol] 3.6 mmol/L Normal 3.5-5.0 [facility] Comment on above: Performed By: #### C BCA, BMP, , 04538-5, 42620-4 #### [facility] ([id number]) [address] [place] [address] 63193 Protein [Mass/Vol] 5.7 g/dL Low 6.0-8.0 [facility] Comment on above: Performed By: #### C BCA, BMP, , 37698-0, 84450-5 #### [facility] ([id number]) [address] [place] [address] 17291 Sodium [Moles/Vol] 139 mmol/L Normal 134-146 [facility] Comment on above: Performed By: #### C BCA, BMP, , 68036-2, 45663-7 #### [facility] ([id number]) [address] [place] [address] [place] [address] Urea nitrogen [Mass/Vol] 26 mg/dL High 5-23 [facility] Comment on above: Performed By: #### C BCA, BMP, , 84586-8, 88405-0 #### [facility] ([id number]) [address] [place] [address] 03118 Calcium.ionized (Bld) [Moles /Vol]on 10-17-2023 [facility] PORTABLE ICA 4.7 mg/dL Normal 4.5-5.3 [facility] Comment on above: Performed By: #### C BCA, BMP, 20957-9, 03840-1, 88114-6 #### [facility] ([id number]) [address] [facility] [place] [address] Comprehensive metabolic pane phu 10-17-2023 Albumin [Mass/Vol] 3.0 g/dL Low 3.2 - 5.3 g/dL [facility] ALP [Catalytic activity/Vol] 56 U/L 39 - 130 U/L [facility] ALT No additional P-5'-P [Catalytic activity/Vol] 10 U/L 0 - 31 U/L [facility] Anion gap [Moles/Vol] 10 mmol/L 5 - 15 mmol/L [facility] AST [Catalytic activity/Vol] 14 U/L 0 - 41 U/L [facility] Bilirubin [Mass/Vol] 0.7 mg/dL 0.3 - 1 .2 mg/dL [facility] Calcium [Mass/Vol] 8.8 mg/dL 8.5 - 10. 5 mg/dL [facility] Chloride [Moles/Vol] 101 mmol/L 98 - 10 9 mmol/L [facility] CO2 [Moles/Vol] 28 mmol/L 22 - 32 mmol/L [facility] Creatinine [Mass/Vol] 2.77 mg/dL High 0.40 - 1.00 mg/dL [facility] Comment on above: METHOD TRACEABLE TO IDAZ STANDARD eGFR (CKD-EPI)non-race dependent 19 Low - PINF [facility] Comment on above: Reported eGFR is based on the CKD-EPI 2020 equation that does not use a race coefficient. Glucose [Mass/Vol] 97 mg/dL 65 - 99 mg/dL [facility] Interpretation and review of laboratory results Abnormal [facility] Potassium [Moles/Vol] 3.6 mmol/L 3.5 - 5.0 mmol/L [facility] Protein [Mass/Vol] 5.7 g/dL Low 6.0 - 8.0 g/dL [facility] Sodium [Moles/Vol] 139 mmol/L 134 - 146 mmol/L [facility] Urea nitrogen [Mass/Vol] 26 mg/dL High 5 - 23 mg/dL [facility] Creatinine, urine, 24 houron 10-17-2023 Creatinine (24H U) [Mass/Time] 1.38 [facility] FECAL OCCULT BLOODon 024 Hemoglobin.gastrointesti nal Ql (Stl) Negative Normal NEG [facility] Comment on above: Performed By: #### 2 335-8 ####[facility] ([id number])[address] [place] [address] Glomerular Basement Membrane IgG, Serumon 10-17-2023 Basement membrane IgG Qn (S) U <1.0 (Negative) U [facility] Comment on above: NOTE Test Performed by: [place] [address] Leadership Program Associate: Ledy Son Ph.D.; CLIA# [id number] Hemoglobin.gastrointestinal Ql (Stl)on 10-17-2023 [facility] MAGNESIUMon 10-17-2023 Magnesium [Mass/Vol] 2.0 mg/dL Normal 1.8-2.6 [facility] Comment on above: Performed By: #### C BCA, [facility], 03551-0, 24447-5, 28953-6 #### [facility] ([id number]) [address] [place] [address] 47535 Magnesiumon 10-17-2023 Magnesium [Mass/Vol] 2.0 mg/dL 1.8 - 2 .6 mg/dL [facility] Myeloperoxidase Antibodies, IgG, Serumon 10-17-2023 Myeloperoxidase IgG Qn (S) U High <0.4 (Negative) U [facility] Comment on above: NOTE Interpretation: Positive (>=1.0) Test Performed by: [place] [address] Leadership Program Associate: Ledy Son Ph.D.; CLIA# [id number] Myeloperoxidase IgG Qn (S)on 10-17-2023 Interpretation and review of laboratory results Abnormal [facility] NM Lung Ventilationon 2023 Clinical history:Elevated d-dimer [...] Tony Lowery MD on 10/17/2023 9:13 AM [facility] Tony Lowery MD - 10/17/2023 Clinical history:Elevated [...] Tony Lowery MD on 10/17/2023 9:13 AM [facility] Radiology Study observation (narrative) [facility] NM Lung VentilationOrdered B y: Tony Lowery on 10-17-2023 [facility] Work Phone: NM VENTILATION PERFUSION [...] 9:13 AM Normal [facility] No Panel Informationon 10-16 [facility] Occult blood x 1, stoolon Hemoglobin.gastrointesti nal Ql (Stl) Negative Negative^N egative [facility] PHOSPHORUSon 10-17-2023 Phosphate [Mass/Vol] 4.1 mg/dL Normal 2.4-4.9 [facility] Comment on above: Performed By: #### C BCA, BMP, 78875-6, 12758-9, 12209-5 #### [facility] ([id number]) [address] [place] [address] 04499 POCT Ionized Calciumon 10-16 Calcium.ionized (Bld) [Moles/Vol] 4.7 mg/dL 4.5 - 5.3 mg/dL [facility] POTASSIUMon 10-17-2023 Potassium [Moles/Vol] 4.2 mmol/L Normal 3.5-5.0 [facility] Comment on above: Performed By: #### 2 823-3 ####[facility] ([id number])[address] [place] [address] 13904 Phosphate [Mass/Vol]on 10-16 [facility] Phosphoruson 10-17-2023 Phosphate [Mass/Vol] 4.1 mg/dL 2.4 - 4 .9 mg/dL [facility] Potassiumon 10-17-2023 Potassium [Moles/Vol] 4.2 mmol/L 3.5 - 5.0 mmol/L [facility] Potassium [Moles/Vol]on 09-23 [facility] Protein, urine, 24 houron Interpretation and review of laboratory results Abnormal [facility] Protein (24H U) [Mass/Time] 6380 High [facility] Proteinase 3 IgGon Proteinase 3 IgG IA Qn 0.2 U <0.4 (Negative) [facility] Comment on above: NOTE Test Performed by: [address], [place] [address] Leadership Program Associate: Ledy Son Ph.D.; CLIA# [id number] THYROID PROFILEon 10-17-2023 Free T4 [Mass/Vol] 1.19 ng/dL Normal 0.61-1.60 [facility] Comment on above: Performed By: #### C VIRGILIO, [facility], 08247-0, 15654-6, 77349-2 #### [facility] ([id number]) [address] [place] [address] 83818 TSH 2.17 uIU/mL Normal 0.49-4.67 [facility] Comment on above: Performed By: #### C VIRGILIO, MARIO, 39960-1, 89141-0, 41884-8 #### [facility] ([id number]) [address] [place] [address] 26464 Thyroid profile includes TSH FT4on 10-17-2023 Free T4 [Mass/Vol] 1.19 ng/dL 0.61 - 1.60 ng/dL [facility] TSH Qn 2.17 m[IU]/L [facility] US.doppler Lower extremity v ein - [...] superficial vein thrombosis of the lower extremities. [facility] US.doppler Lower extremity v ein - bilateralOrdered By: Jong Haddad on 10-17-2023 [facility] Work Phone: Urine Volume and Timeon 09-23 Specimen volume Unsp time (U) 4400 mL [facility] Urine output 24 hour [address] [facility] 24 HR URINE CREATININEon URINE CREATININE 1.38 g/24h Normal 0.80-1.80 [facility] Comment on above: Performed By: #### U CR, UPRO ####[facility] ([id number])[address] [facility], [address] [place] [address] 77504 24 HR URINE TOTAL PROTEINon 10-16-2023 URINE TOTAL PROTEIN 6380 mg/24h High 0-150 [facility] Comment on above: Performed By: #### U CR, UPRO ####[facility] ([id number])[address] [facility], [address] [place] [address] 60262 SAUL Screen w/ Reflexon 10-15 Nuclear Ab IA Ql (S) Negative Negativ e^N egative [facility] Comment on above: Testing performed using multiplex flow immunoassay. Eleven different antigens associated with systemic autoimmune diseases (dsDNA,Sm,Sm/DOT COMPLIANCE MANAGER,DOT COMPLIANCE MANAGER,Chromatin, SSA,SSB,Yoly-1,Scl70,Ribo P,Centromere B) are included in this screening test. CBC AND AUTO DIFFon 10-16-19 24 ABSOLUTE BASOPHIL 0.0 X10E9/L Normal 0.0-0.2 [facility] Comment on above: Performed By: #### C BCA, BMP, 13867-7, 14298-6, 20150-7 #### [facility] ([id number]) [address] [place] [address], [place] [address] ABSOLUTE NEUTROPHIL 4.9 X10E9/L Normal 1.5-6.6 [facility] Comment on above: Performed By: #### C BCA, BMP, 36824-1, 15774-9, 57092-5 #### [facility] ([id number]) [address] [place] [address] 59690 Basophils/100 WBC (Bld) 0.6 % Normal [facility] Comment on above: Performed By: #### C BCA, BMP, , 48753-0, 80093-6 #### [facility] ([id number]) [address] [place] [address] 73822 Eosinophils (Bld) [#/Vol] 0.3 10*3/uL Normal 0.0-0.4 [facility] Comment on above: Performed By: #### C BCA, BMP, , 78957-9, 80328-1 #### [facility] ([id number]) [address] [place] [address] 21711 Eosinophils/100 WBC (Bld) 4.2 % Normal [facility] Comment on above: Performed By: #### C BCA, BMP, , 67090-7, 04660-8 #### [facility] ([id number]) [address] [place] [address] 41746 Erythrocyte distribution width (RBC) [Ratio] 14.8 % Normal 11.5-15.0 [facility] Comment on above: Performed By: #### C BCA, BMP, , 62537-7, 53613-3 #### [facility] ([id number]) [address] [place] [address] 38179 Hematocrit (Bld) [Volume fraction] 28.5 % Low 35-47 [facility] Comment on above: Performed By: #### C BCA, BMP, 24287-0, 51675-4, 61814-6 #### [facility] ([id number]) [address] [place] [address] 07118 Hemoglobin (Bld) [Mass/Vol] 9.5 g/dL Low 11.7-15.5 [facility] Comment on above: Performed By: #### C VIRGILIO, MARIO, , 99886-1, 99787-8 #### [facility] ([id number]) [address] [place] [address] 09875 Lymphocytes (Bld) [#/Vol] 2.1 10*3/uL Normal 1.0-3.5 [facility] Comment on above: Performed By: #### C VIRGILIO, MARIO, , 76213-0, 59138-0 #### [facility] ([id number]) [address] [place] [address] 74468 Lymphocytes/100 WBC (Bld) 26.6 % Normal [facility] Comment on above: Performed By: #### C VIRGILIO, MARIO, , 00541-8, 05705-4 #### [facility] ([id number]) [address] [place] [address] 71218 MCH (RBC) [Entitic mass] 27.7 pg Normal 27-34 [facility] Comment on above: Performed By: #### Shahla POOLE, MARIO, , 44816-9, 51065-0 #### [facility] ([id number]) [address] [place] [address] 08084 MCHC (RBC) [Mass/Vol] 33.6 g/dL Normal 32-[address] [facility] Comment on above: Performed By: #### C VIRGILIO, BMP, , 50871-1, 91665-8 #### [facility] ([id number]) [address] [place] [address] 24791 MCV (RBC) [Entitic vol] 83 fL Normal 80-100 [facility] Comment on above: Performed By: #### C BCA, BMP, 81673-0, 23868-7, 51043-5 #### [facility] ([id number]) [address] [place] [address] 29129 Monocytes (Bld) [#/Vol] 0.7 10*3/uL Normal 0-0.9 [facility] Comment on above: Performed By: #### C BCA, BMP, 07211-0, 12169-9, 37232-1 #### [facility] ([id number]) [address] [place] [address] 68570 Monocytes/100 WBC (Bld) 8.2 % Normal [facility] Comment on above: Performed By: #### C BCA, BMP, 89096-0, 38481-0, 36501-5 #### [facility] ([id number]) [address] [place] [address] 72735 Neutrophils/100 WBC (Bld) 60.4 % Normal [facility] Comment on above: Performed By: #### C BCA, BMP, 82782-4, 25366-0, 68269-2 #### [facility] ([id number]) [address] [place] [address] 01138 Platelet mean volume (Bld) [Entitic vol] 8.9 fL Normal 7-12 [facility] Comment on above: Performed By: #### C BCA, BMP, 66835-8, 13340-3, 43578-4 #### [facility] ([id number]) [address] [place] [address] 82617 Platelets (Bld) [#/Vol] 252 10*3/uL Normal 150-450 [facility] Comment on above: Performed By: #### C BCA, BMP, 33301-9, 48172-6, 42498-6 #### [facility] ([id number]) [address] [place] [address] RBC COUNT 3.45 X10E12/L Low 3.80-5.20 [facility] Comment on above: Performed By: #### C MARIO POOLE, 83144-9, 18263-0, 77478-2 #### [facility] ([id number]) [address] [place] [address] 49913 WBC (Bld) [#/Vol] 8.0 10*3/uL Normal 4.0-11.0 [facility] Comment on above: Performed By: #### C MARIO POOLE, 44332-7, 54785-9, 10613-9 #### [facility] ([id number]) [address] [place] [address] 03470 CBC auto differentialon 09-23 Basophils (Bld) [#/Vol] 0.0 10*3/uL [facility] System Basophils/100 WBC (Bld) 0.6 % [facility] Eosinophils (Bld) [#/Vol] 0.3 10*3/uL [facility] Eosinophils/100 WBC (Bld) 4.2 % [facility] Erythrocyte distribution width (RBC) [Ratio] 14.8 % 11.5 - 15.0 % [facility] Hematocrit (Bld) [Volume fraction] 28.5 % Low 35 - 47 % [facility] Hemoglobin (Bld) [Mass/Vol] 9.5 g/dL Low 11.7 - 15.5 g/dL [facility] Interpretation and review of laboratory results Abnormal [facility] Lymphocytes (Bld) [#/Vol] 2.1 10*3/uL [facility] Lymphocytes/100 WBC (Bld) 26.6 % [facility] MCH (RBC) [Entitic mass] 27.7 pg 27 - 34 pg [facility] MCHC (RBC) [Mass/Vol] 33.6 g/dL 32 - 3 6 g/dL [facility] MCV (RBC) [Entitic vol] 83 fL 80 - 100 fL [facility] Monocytes (Bld) [#/Vol] 0.7 10*3/uL [facility] Monocytes/100 WBC (Bld) 8.2 % [facility] Neutrophils (Bld) [#/Vol] 4.9 10*3/uL [facility] Neutrophils/100 WBC (Bld) 60.4 % [facility] Platelet mean volume (Bld) [Entitic vol] 8.9 fL 7 - 12 fL [facility] Platelets (Bld) [#/Vol] 252 10*3/uL [facility] RBC (Bld) [#/Vol] 3.45 10*6/uL Low [facility] WBC corrected for nucl RBC Auto (Bld) [#/Vol] 8.0 [facility] COMPREHENSIVE METABOLIC PANE Phu 10-16-2023 Albumin [Mass/Vol] 2.7 g/dL Low 3.2-5.3 [facility] Comment on above: Performed By: #### C BCA, BMP, 72605-2, 25016-7, 66126-5 #### [facility] ([id number]) [address] [place] [address] 19718 ALP [Catalytic activity/Vol] 55 U/L Normal 39-130 [facility] Comment on above: Performed By: #### C BCA, BMP, 07740-5, 30495-5, 06423-1 #### [facility] ([id number]) [address] [place] [address] 70107 ALT [Catalytic activity/Vol] 9 U/L Normal 0-31 [facility] Comment on above: Performed By: #### C BCA, BMP, 45418-6, 01847-5, 77970-0 #### [facility] ([id number]) [address] [place] [address] 34167 Anion gap [Moles/Vol] 8 mmol/L Normal 5-15 [facility] Comment on above: Performed By: #### C BCA, BMP, 60106-1, 45068-6, 54484-7 #### [facility] ([id number]) [address] [place] [address] 53368 AST [Catalytic activity/Vol] 13 U/L Normal 0-41 [facility] Comment on above: Performed By: #### C BCA, BMP, 90896-7, 92263-8, 87556-5 #### [facility] ([id number]) [address] [place] [address] 18348 Bilirubin [Mass/Vol] 0.4 mg/dL Normal 0.3-1.2 [facility] Comment on above: Performed By: #### C BCA, BMP, , 35264-1, 18209-8 #### [facility] ([id number]) [address] [place] [address] 29980 Calcium [Mass/Vol] 8.4 mg/dL Low 8.5-10.5 [facility] Comment on above: Performed By: #### C BCA, BMP, , 63017-3, 02954-6 #### [facility] ([id number]) [address] [place] [address] 16664 Chloride [Moles/Vol] 101 mmol/L Normal 98-109 [facility] Comment on above: Performed By: #### C BCA, BMP, , 21005-6, 37119-5 #### [facility] ([id number]) [address] [place] [address] 83482 CO2 [Moles/Vol] 28 mmol/L Normal 22-32 [facility] Comment on above: Performed By: #### C BCA, BMP, , 19237-7, 80744-4 #### [facility] ([id number]) [address] [place] [address] 65730 Creatinine [Mass/Vol] 2.63 mg/dL High 0.40-1.00 [facility] Comment on above: Result Comment: METH OD TRACEABLE TO IDMS STANDARD Performed By: #### C VIRGILIO, MARIO, , 54131-9, 33921-2 #### [facility] ([id number]) [address] [place] [address] 37122 GFR/1.73 sq M.predicted among non-blacks MDRD (S/P/Bld) [Vol rate/Area] 20 mL/min/{1.73_m2} Low >59 [facility] Comment on above: Result Comment: Reported eGFR is based on the CKD-EPI 2020 equation that does not use a race coefficient. Performed By: #### C VIRGILIO, MARIO, , 10043-0, 64315-2 #### [facility] ([id number]) [address] [place] [address] 08750 Glucose [Mass/Vol] 107 mg/dL High 65-99 [facility] Comment on above: Performed By: #### C VIRGILIO, MARIO, , 76794-2, 39090-8 #### [facility] ([id number]) [address] [place] [address] 31700 Potassium [Moles/Vol] 3.2 mmol/L Low 3.5-5.0 [facility] Comment on above: Performed By: #### C VIRGILIO, MARIO, , 49752-4, 95035-4 #### [facility] ([id number]) [address] [place] [address] 30900 Protein [Mass/Vol] 5.4 g/dL Low 6.0-8.0 [facility] Comment on above: Performed By: #### C VIRGILIO, BMP, , 17418-6, 15576-4 #### [facility] ([id number]) [address] [place] [address] 08429 Sodium [Moles/Vol] 137 mmol/L Normal 134-146 [facility] Comment on above: Performed By: #### C BCA, BMP, 25014-7, 58960-3, 55916-1 #### [facility] ([id number]) [address] [place] [address] 36380 Urea nitrogen [Mass/Vol] 23 mg/dL Normal 5-23 [facility] Comment on above: Performed By: #### C BCA, BMP, 36999-4, 73588-8, 03111-3 #### [facility] ([id number]) [address] [place] [address] 06325 Calcium.ionized (Bld) [Moles /Vol]on 10-16-2023 [facility] [employer] PORTABLE ICA 4.6 mg/dL Normal 4.5-5.3 [facility] Comment on above: Performed By: #### C BCA, BMP, 08228-5, 49115-5, 52064-3 #### [facility] ([id number]) [address] [place] [address] 55968 Cardiac echo study Procedure Ordered By: Cole Hannah on 10-16-2023 Aortic root 3.30 cm [employer] Work Phone: AV mean gradient 7.00 mmHg [employer] Work Phone: AV peak gradient 13.99 mmHg [employer] Work Phone: AV peak gerber 187.00 cm/s [employer] Work Phone: AV valve area 2.07 cm2 [employer] Work Phone: AV Velocity Ratio 0.66 [facility] Work Phone: AV VTI 38.50 cm [employer] Work Phone: E wave deceleration time 232.00 msec [employer] Work Phone: E/A ratio 1.62 [employer] Work Phone: Echo EF Estimated 69 % [facility] Work Phone: EF 69 % [facility] Work Phone: Energy loss index 1.18 [facility] [employer] Work Phone: FS 38 % 28 - 44 % [facility] Work Phone: Interventricular Septum Diastolic Thickness by 2D 10 cm [facility] Work Phone: IVS 1.00 cm 0.6 - 1.1 cm [facility] Work Phone: LA size 3.70 cm [employer] Work Phone: LA volume 71.00 cm3 [employer] Work Phone: LA Volume Index 28.1 mL/m2 [facility] Work Phone: Left Ventricle Mass 181.702633851349848 g [employer] Work Phone: LV Diastolic Volume 101.00 mL [facility] [employer] Work Phone: LV ESV A2C 61.50 mL [employer] Work Phone: LV ESV A4C 81.70 mL [employer] Work Phone: LV RWT 2D 40.00 [employer] Work Phone: LV Systolic Volume 31.70 mL [email or web address] Work Phone: LVIDd 5.00 cm 7.85 - 10.91 cm [facility] Work Phone: LVIDs 3.10 cm 4.53 - 6.87 cm [employer] Work Phone: LVOT diameter 2.00 cm [employer] Work Phone: LVOT peak gerber 1.16 m/s [employer] Work Phone: LVOT peak VTI 25.40 cm [employer] Work Phone: LVOT stroke volume 79.80 ml [email or web address] Work Phone: MV Peak A Gerber 83.70 cm/s [facility] Work Phone: MV Peak E Gerber 136.00 cm/s [facility] Work Phone: MV pressure 1/2 time 68.00 ms [facility] [employer] Work Phone: MV TDI E' (medial) 4.68 cm/s [email or web address] Work Phone: MV valve area p 1/2 method 3.24 cm2 [facility] Work Phone: PW 1.00 cm 0.6 - 1.1 cm [employer] Work Phone: RA 2D Volume 16.8 mL/m2 [employer] Work Phone: RA area 15.3 cm2 [employer] Work Phone: RV diastolic dimension (basal) 39.0 mm [employer] Work Phone: RVID d 3.9 cm [employer] Work Phone: TAPSE 2.09 cm [employer] Work Phone: TASV 11.5 cm/s [facility] Work Phone: TDI 6.64 cm/s [employer] Work Phone: Valve area - Index 0.8 [email or web address] Work Phone: ZLVIDD -6.16 [facility] Work Phone: ZLVIDS -4.64 [employer] Work Phone: [facility] Work Phone: Cardiac echo study Procedure on [...] Mitral valve structure is normal. There is wzwws-op-dnbn regurgitation with a centrally directed jet. There [...] is normal. [facility] Radiology Study observation (narrative) [facility] Clinical Pathologyon 024 Clinical Pathology Normal [facility] Comment on above: Result Comment: [facility] [address] [place] [address] Clinical Pathology Report Patient Name:DANIELLE MONTANA:1965 (Age: 58)Gender:FTaken:4Reported:4Physician(s):Alhaji Flores MD ([phone])Copy To: Rec. 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 No monoclonal protein identified. Report Electronically Signed Out 10/18/2023nicci Gomez MD [facility] [address] [place] [address], License number: [id number]. Clinical History D17.9, I16.0, E87.6. URINE PROTEIN ELECTROPHORESIS SAMPLE NUMBER: [id number] RELATIVE ELECTROPHORETIC CONCENTRATIONS (%) ? 100.0 Urine Protein 1410 mg/L (Electrophoretic gels and densitometric tracings on file in lab.) Specimen(s) Received Urine Protein Electrophoresis Fee Codes(s): 1; 51059-07 [facility] 10-16-2023 Albumin [Mass/Vol] 2.7 g/dL Low 3.2 - 5.3 g/dL [facility] ALP [Catalytic activity/Vol] 55 U/L 39 - 130 U/L [facility] ALT No additional P-5'-P [Catalytic activity/Vol] 9 U/L 0 - 31 U/L [facility] Anion gap [Moles/Vol] 8 mmol/L 5 - 15 mmol/L [facility] AST [Catalytic activity/Vol] 13 U/L 0 - 41 U/L [facility] Bilirubin [Mass/Vol] 0.4 mg/dL 0.3 - 1 .2 mg/dL [facility] Calcium [Mass/Vol] 8.4 mg/dL Low 8.5 - 10. 5 mg/dL [facility] Chloride [Moles/Vol] 101 mmol/L 98 - 10 9 mmol/L [facility] CO2 [Moles/Vol] 28 mmol/L 22 - 32 mmol/L [facility] Creatinine [Mass/Vol] 2.63 mg/dL High 0.40 - 1.00 mg/dL [facility] Comment on above: METHOD TRACEABLE TO [facility] STANDARD eGFR (CKD-EPI)non-race dependent 20 Low - PINF [facility] Comment on above: Reported eGFR is based on the CKD-EPI 2021 equation that does not use a race coefficient. Glucose [Mass/Vol] 107 mg/dL High 65 - 99 mg/dL [facility] Interpretation and review of laboratory results Abnormal [facility] Potassium [Moles/Vol] 3.2 mmol/L Low 3.5 - 5.0 mmol/L [facility] Protein [Mass/Vol] 5.4 g/dL Low 6.0 - 8.0 g/dL [facility] Sodium [Moles/Vol] 137 mmol/L 134 - 146 mmol/L [facility] Urea nitrogen [Mass/Vol] 23 mg/dL 5 - 23 mg/dL [facility] D-Dimeron 10-16-2023 Fibrin D-dimer DDU (PPP) [Mass/Vol] 499 High NINF [facility] Comment on above: Results >=255ng/mL DDU: Results [...] Interpretation and review of laboratory results Abnormal [facility] D DIMER 499 ng/mL DDU High [...] D-Dimer level. Performed By: #### C VIRGILIO, [facility], 47754-3, 50073-1, 31070-0 #### [facility] ([id number]) [address] [place] [address], [place] [address] Free light chainson 10-16-19 Immunoglobulin light chains.kappa.free (S) [Mass/Vol] 3.52 mg/dL High 0.33 - 1.94 mg/dL [facility] Immunoglobulin light chains.kappa.free/Immuno globulin light chains.lambda (S) [Mass ratio] 0.94 0.26 - 1.65 [facility] Immunoglobulin light chains.lambda [Mass/Vol] 3.75 mg/dL High 0.57 - 2.63 mg/dL [facility] Interpretation and review of laboratory results Abnormal [facility] HGB A1C (GLYCO-HGB)on 2023 Glucose [Mass/Vol] 111 mg/dL Normal [facility] Comment on above: Performed By: #### MARIO Gale BCA, 67145-6, 21937-3, 73107-0 #### [facility] ([id number]) [address] [place] [address] 75970 HbA1c (Bld) [Mass fraction] 5.5 % Normal [...] affected. Performed By: #### MARIO Gale BCA, 65904-7, 12185-4, 33230-7 #### [facility] ([id number]) [address] [place] [address] 69146 Hemoglobin A1con 10-16-2023 Average glucose Estimated from glycated hemoglobin (Bld) [Mass/Vol] 111 mg/dL [facility] HbA1c (Bld) [Mass fraction] 5.5 % 4.4 - 5.6 % [facility] Comment on above: NOTE ADA Guidelines Result HgbA1c Normal : less than 5.7 % Prediabetes : 5.7 % to 6.4 % Diabetes : > 6.4 % Use with caution in patients with abnormal hemoglobin variants as the half-life of red blood cells and in vivo glycation rates are affected. [facility] MAGNESIUMon 10-16-2023 Magnesium [Mass/Vol] 2.1 mg/dL Normal 1.8-2.6 [facility] Comment on above: Performed By: #### C MARIO POOLE, , 22798-1, 10985-7 #### [facility] ([id number]) [address] [place] [address] 98140 MICROALBUMIN - ALBUMIN:CREAT ININE URINE RATIOon 10-16-2023 ALB/CREAT RATIO 3392.0 mg/g creat High 0.0-30.0 [facility] Comment on above: Performed By: #### C MARIO POOLE, , 52558-8, 79783-4 #### [facility] ([id number]) [address] [place] [address] 98976 Albumin DL <= 20 mg/L (U) [Mass/Vol] 88.6 mg/dL High 0.0-1.9 [facility] Comment on above: Performed By: #### MARIO Gale BCA, , 08848-6, 93260-2 #### [facility] ([id number]) [address] [place] [address] 79061 URINE CREAT 26.12 mg/dL Normal [facility] Comment on above: Performed By: #### MARIO Gale BCA, , 56615-4, 27884-5 #### [facility] ([id number]) [address] [place] [address] 73076 Magnesiumon 10-16-2023 Magnesium [Mass/Vol] 2.1 mg/dL 1.8 - 2 .6 mg/dL [facility] Microalbumin - Albumin: Crea tinine Urine Ratioon 10-16-2023 Albumin DL <= 20 mg/L (U) [Mass/Vol] 88.6 mg/dL High 0.0 - 1.9 mg/dL [facility] Albumin/Creatinine DL <= 1.0 mg/L (U) [Ratio] 3392.0 High [facility] Creatinine (U) [Mass/Vol] 26.12 mg/dL [facility] Interpretation and review of laboratory results Abnormal [facility] No Panel Informationon 10-15 [facility] Nuclear Ab IA Ql (S)on 10-15 [facility] PHOSPHORUSon 10-16-2023 Phosphate [Mass/Vol] 4.3 mg/dL Normal 2.4-4.9 [facility] Comment on above: Performed By: #### C MARIO POOLE, 92902-8, 76889-5, 17595-8 #### [facility] ([id number]) [address] [place] [address] 80488 POCT Ionized Calciumon 10-15 Calcium.ionized (Bld) [Moles/Vol] 4.6 mg/dL 4.5 - 5.3 mg/dL [facility] POTASSIUMon 10-16-2023 Potassium [Moles/Vol] 4.8 mmol/L Normal 3.5-5.0 [facility] Comment on above: Result Comment: SPEC IMEN HEMOLYZED, RESULTS INCREASED Performed By: #### C MARIO POOLE, 46708-0, 60978-6, 29858-3 #### [facility] ([id number]) [address] [place] [address] 39757 PROTEIN CREAT RATIOon 2023 RANDOM URINE PROTEIN 1270 mg/L High <120 [facility] Comment on above: Performed By: #### C MARIO POOLE, 04155-5, 70064-8, 93707-1 #### [facility] ([id number]) [address] [place] [address] 12701 U/PRO/CLARIFICATION OPERATOR RATIO CALC 4.72 High <0.2 [facility] Comment on above: Result Comment: Neph rotic Syndrome is associated with ratios >3.5 Performed By: #### C BCA, BMP, 53833-6, 92742-0, 09653-2 #### [facility] ([id number]) [address] [place] [address] URINE CREATININE,RDM 26.92 mg/dL Normal [facility] Comment on above: Performed By: #### C BCA, BMP, 04512-5, 84130-3, 63745-8 #### [facility] ([id number]) [address] [facility] [place], [place] [address] Phosphate [Mass/Vol]on 10-15 [facility] Phosphoruson 10-16-2023 Phosphate [Mass/Vol] 4.3 mg/dL 2.4 - 4 .9 mg/dL [facility] Potassiumon 10-16-2023 Potassium [Moles/Vol] 4.8 mmol/L 3.5 - 5.0 mmol/L [facility] Comment on above: SPECIMEN HEMOLYZED, RESULTS INCREASED Potassium [Moles/Vol]on 09-23 [facility] Protein creat ratioon 2023 Creatinine (U) [Mass/Vol] 26.92 mg/dL [facility] Interpretation and review of laboratory results Abnormal [facility] Protein (U) [Mass/Vol] 1270 mg/L High NINF - 120 mg/L [facility] Protein/Creatinine (U) [Ratio] 4.72 High NINF - 0.2 [facility] Comment on above: Nephrotic Syndrome i s associated with ratios >3.5 [facility] Protein electrophoresis, ser umon 10-16-2023 Albumin [Mass/Vol] 2.5 g/dL Low 3.4 - 5.3 g/dL [facility] Alpha 1 globulin Elph [Mass/Vol] 0.4 g/dL 0.1 - 0.4 g/dL [facility] Alpha 2 globulin Elph [Mass/Vol] 0.9 g/dL 0.4 - 1.1 g/dL [facility] Beta globulin Elph [Mass/Vol] 0.5 g/dL 0.5 - 1.2 g/dL [facility] Gamma globulin Elph [Mass/Vol] 0.4 g/dL Low 0.5 - 1.6 g/dL [facility] Interpretation and review of laboratory results Abnormal [facility] Pathologist interpretation (Bld) [Interp] Unremarkable protein distribution, no monoclonal bands. [facility] Protein [Mass/Vol] 4.7 g/dL Low 6.0 - 8.0 g/dL [facility] URINALYSISon 10-16-2023 Bilirubin Ql (U) Negative Normal NEG [facility] Comment on above: Performed By: #### C VIRGILIO, BMP, 15197-0, 91513-5, 10473-1 #### [facility] ([id number]) [address] [place] [address] 60508 BLOOD/HGB Large Abnormal NEG [facility] Comment on above: Performed By: #### Shahla POOLE, BMP, 68458-8, 15111-9, 45774-8 #### [facility] ([id number]) [address] [place] [address] 07272 Color (U) YELLOW Normal YELLOW [facility] Comment on above: Performed By: #### Shahla BCA, BMP, 34461-8, 16129-7, 06235-2 #### [facility] ([id number]) [address] [place] [address] 23186 Glucose Ql (U) Negative Normal NEG [facility] Comment on above: Performed By: #### Shahla BCA, BMP, 75319-5, 90399-7, 10400-5 #### [facility] ([id number]) [address] [place] [address] 07759 Ketones Ql (U) Negative Normal NEG [facility] Comment on above: Performed By: #### hSahla BCA, BMP, 25085-5, 23014-5, 74803-9 #### [facility] ([id number]) [address] [place] [address] Leukocyte esterase Test strip Ql (U) Negative Normal NEG [facility] Comment on above: Performed By: #### C VIRGILIO, BMP, 63169-8, 94417-5, 63569-7 #### [facility] ([id number]) [address] [place] [address] 45842 Nitrite Ql (U) Negative Normal NEG [facility] Comment on above: Performed By: #### C VIRGILIO, BMP, 33924-1, 11421-6, 15729-3 #### [facility] ([id number]) [address] [place] [address] 45748 pH (U) 6.0 [pH] Normal 5.0-8.5 [facility] Comment on above: Performed By: #### C VIRGILIO, BMP, 40437-5, 42871-3, 30086-7 #### [facility] ([id number]) [address] [place] [address] 22913 Protein Ql (U) 100 mg/dL Abnormal NEG [facility] Comment on above: Performed By: #### C VIRGILIO, BMP, 63116-8, 94829-2, 85037-4 #### [facility] ([id number]) [address] [place] [address] 82331 R.B.CELLS 80 /hpf High 0-5 [facility] Comment on above: Performed By: #### C VIRGILIO, BMP, 21631-1, 27550-3, 75185-3 #### [facility] ([id number]) [address] [place] [address] 09154 Specific gravity (U) [Rel density] 1.015 Normal 1.003-1.[address] [place] [address] Comment on above: Performed By: #### C VIRGILIO, BMP, 79521-1, 76916-9, 84340-4 #### [facility] ([id number]) [address] [place] [address] 11532 SQUAMOUS EPITHELIUM 2 /hpf Normal 0-5 [facility] Comment on above: Performed By: #### C VIRGILIO, MARIO, , 63260-4, 07176-4 #### [facility] ([id number]) [address] [place] [address] 91156 TURBIDITY CLEAR Normal CLEAR [facility] Comment on above: Performed By: #### C VIRGILIO, BMP, , 15003-5, 14970-1 #### [facility] ([id number]) [address] [place] [address] 60046 Urobilinogen Qn (U) 0.2 {Micaela'U}/dL Normal <1.1 [facility] Comment on above: Performed By: #### C VIRGILIO, MARIO, , 00216-6, 99611-7 #### [facility] ([id number]) [address] [place] [address] 83133 W.B.CELLS 5 /hpf Normal 0-5 [facility] Comment on above: Performed By: #### C MARIO POOLE, , 74258-3, 07094-6 #### [facility] ([id number]) [address] [place] [address] 79371 URINE PROTEIN ELECTROPHORESI Son 10-16-2023 UPREL INTERP SEE SEPARATE REPORT Normal [facility] URINE VOLUME AND TIMEon 09-23 TIME 24 h Normal [facility] Comment on above: Performed By: #### U CR, UPRO ####[facility] ([id number])[address] [facility], [address], [place] [address] TOTAL VOLUME 4400 mL Normal [facility] Comment on above: Performed By: #### U CR, UPRO ####[facility] ([id number]) [facility], [address] [place] [address] 09095 US RETROPERITONEAL COMPLETEo n 10-16-2023 US RETROPERITONEAL [...] Maksim Unger MD on 10/16/2023 9:42 AM [facility] US Retroperitoneumon 024 US RETROPERITONEAL COMPLETE: 10/16/2023 [...] Maksim Unger MD on 10/16/2023 9:42 AM [facility] - 10/16/2023 US RETROPERITONEAL [...] MD on 10/16/2023 9:42 AM [facility] Radiology Study observation (narrative) [facility] US RetroperitoneumOrdered By : Maksim Unger on 10-16-2023 [facility] Work Phone: US.doppler Lower extremity v ein - bilateralon 10-16-2023 Radiology Study observation (narrative) [facility] Urinalysison 10-16-2023 Bilirubin Ql (U) Negative Negative^N egative [facility] Color (U) YELLOW YELLOW^YEL LOW [facility] Epithelial cells Auto (Urine sed) [#/Area] 2 [facility] Glucose (U) [Mass/Vol] Negative Negat marva^N egative mg/dL [facility] Hemoglobin Auto test strip Ql (U) Large Abnormal Negative^N egative [facility] Interpretation and review of laboratory results Abnormal [facility] Ketones (U) [Mass/Vol] Negative Negat marva^N egative mg/dL [facility] Leukocyte esterase Auto test strip Ql (U) Negative Negative^N egative [facility] Nitrite Auto test strip Ql (U) Negative Negative^N egative [facility] pH (U) 6.0 [pH] 5.0 - 8.5 [facility] Protein (U) [Mass/Vol] 100 mg/dL Abnormal Negat marva^N egative [facility] RBC Auto (Urine sed) [#/Area] 80 High [facility] Specific gravity Refractometry automated (U) [Rel density] 1.015 1.003 - 1.035 [facility] Turbidity Ql (U) CLEAR CLEAR^NUNU R [facility] Urobilinogen Qn (U) 0.2 NINF [facility] WBC Auto (Urine sed) [#/Area] 5 [facility] Basement membrane IgG Qn (S) on 10-15-2023 Glomerular Base Memb IgG <0.2 Normal <1. 0 (Negative) [facility] Comment on above: Result Comment: NOTE Test Performed by: [facility] [address] [place] [address] Leadership Program Associate: Ledy Son Ph.D.; CLIA# [id number] Performed By: #### C VIRGILIO BMP, 75144-0, 83194-1, 18217-8 #### [facility] ([id number]) [address] [place] [address] 10622 CBC AND AUTO DIFFon 10-15-19 24 ABSOLUTE BASOPHIL 0.1 X10E9/L Normal 0.0-0.2 [facility] Comment on above: Performed By: #### C VIRGILIO CMP, #### [facility] ([id number]) [address] [place] [address] 11244 ABSOLUTE NEUTROPHIL 6.8 X10E9/L High 1.5-6.6 [facility] Comment on above: Performed By: #### C VIRGILIO CMP, 46683-6 #### [facility] ([id number]) [address] [place] [address] 14944 Basophils/100 WBC (Bld) 0.7 % Normal P [facility] Comment on above: Performed By: #### Shahla POOLE CMP, 04773-7 #### [facility] ([id number]) [address] [place] [address] 03766 Eosinophils (Bld) [#/Vol] 0.3 10*3/uL Normal 0.0-0.4 [facility] Comment on above: Performed By: #### Shahla POOLE CMP, 90852-8 #### [facility] ([id number]) [address] [place] [address] 26484 Eosinophils/100 WBC (Bld) 3.3 % Normal [facility] Comment on above: Performed By: #### Shahla POOLE CMP, 11443-1 #### [facility] ([id number]) [address] [place] [address] 08175 Erythrocyte distribution width (RBC) [Ratio] 14.6 % Normal 11.5-15.0 [facility] Comment on above: Performed By: #### Shahla POOLE CMP, #### [facility] ([id number]) [address] [place] [address] 90355 Hematocrit (Bld) [Volume fraction] 30.1 % Low 35-47 [facility] Comment on above: Performed By: #### Shahla POOLE CMP, #### [facility] ([id number]) [address] [place] [address] 82503 Hemoglobin (Bld) [Mass/Vol] 10.0 g/dL Low 11.7-15.5 [facility] Comment on above: Performed By: #### Shahla POOLE CMP, #### [facility] ([id number]) [address] [place] [address] 93313 Lymphocytes (Bld) [#/Vol] 2.4 10*3/uL Normal 1.0-3.5 [facility] Comment on above: Performed By: #### Shahla POOLE CMP, #### [facility] ([id number]) [address] [place] [address] 72929 Lymphocytes/100 WBC (Bld) 23.7 % Normal [facility] Comment on above: Performed By: #### Shahla POOLE CMP, #### [facility] ([id number]) [address] [place] [address] 47341 MCH (RBC) [Entitic mass] 27.7 pg Normal 27-34 [facility] Comment on above: Performed By: #### Shahla POOLE CMP, #### [facility] ([id number]) [address] [place] [address] 72431 MCHC (RBC) [Mass/Vol] 33.1 g/dL Normal 32-36 [facility] Comment on above: Performed By: #### Shahla POOLE CMP, #### [facility] ([id number]) [address] [place] [address] 64402 MCV (RBC) [Entitic vol] 84 fL Normal 80-100 [facility] Comment on above: Performed By: #### Shahla POOLE CMP, #### [facility] ([id number]) [address] [place] [address] 13681 Monocytes (Bld) [#/Vol] 0.6 10*3/uL Normal 0-0.9 [facility] Comment on above: Performed By: #### Shahla POOLE CMP, #### [facility] ([id number]) [address] [place] [address] 80296 Monocytes/100 WBC (Bld) 5.5 % Normal [facility] Comment on above: Performed By: #### Shahla POOLE CMP, 59621-7 #### [facility] ([id number]) [address] [place] [address] 68967 Neutrophils/100 WBC (Bld) 66.8 % Normal [facility] Comment on above: Performed By: #### Shahla POOLE CMP, 21407-6 #### [facility] ([id number]) [address] [place] [address] 76207 Platelet mean volume (Bld) [Entitic vol] 9.0 fL Normal 7-12 [facility] Comment on above: Performed By: #### Shahla POOLE [facility], 98922-1 #### [facility] ([id number]) [address] [place] [address] 78826 Platelets (Bld) [#/Vol] 312 10*3/uL Normal 150-450 [facility] Comment on above: Performed By: #### Shahla POOLE [facility], 90705-2 #### [facility] ([id number]) [address] [place] [address] 13967 RBC COUNT 3.59 X10E12/L Low 3.80-5.20 [facility] Comment on above: Performed By: #### Shahla POOLE [facility], 89035-3 #### [facility] ([id number]) [address] [place] [address] 51284 WBC (Bld) [#/Vol] 10.2 10*3/uL Normal 4.0-11.0 [facility] Comment on above: Performed By: #### Shahla POOLE CMP, 25821-8 #### [facility] ([id number]) [address] [place] [address] 61971 CBC auto differentialon 09-23 Basophils (Bld) [#/Vol] 0.1 10*3/uL [facility] Basophils/100 WBC (Bld) 0.7 % [facility] Eosinophils (Bld) [#/Vol] 0.3 10*3/uL [facility] Eosinophils/100 WBC (Bld) 3.3 % [facility] Erythrocyte distribution width (RBC) [Ratio] 14.6 % 11.5 - 15.0 % [facility] Hematocrit (Bld) [Volume fraction] 30.1 % Low 35 - 47 % [facility] Hemoglobin (Bld) [Mass/Vol] 10.0 g/dL Low 11.7 - 15.5 g/dL [facility] Interpretation and review of laboratory results Abnormal [facility] Lymphocytes (Bld) [#/Vol] 2.4 10*3/uL [facility] Lymphocytes/100 WBC (Bld) 23.7 % [facility] MCH (RBC) [Entitic mass] 27.7 pg 27 - 34 pg [facility] MCHC (RBC) [Mass/Vol] 33.1 g/dL 32 - 3 6 g/dL [facility] MCV (RBC) [Entitic vol] 84 fL 80 - 100 fL [facility] Monocytes (Bld) [#/Vol] 0.6 10*3/uL [facility] Monocytes/100 WBC (Bld) 5.5 % P [facility] Neutrophils (Bld) [#/Vol] 6.8 10*3/uL High [facility] Neutrophils/100 WBC (Bld) 66.8 % [facility] Platelet mean volume (Bld) [Entitic vol] 9.0 fL 7 - 12 fL [facility] Platelets (Bld) [#/Vol] 312 10*3/uL [facility] RBC (Bld) [#/Vol] 3.59 10*6/uL Low [facility] WBC corrected for nucl RBC Auto (Bld) [#/Vol] 10.2 [facility] CK Totalon 10-15-2023 CK [Catalytic activity/Vol] 82 U/L 24 - 170 U/L [facility] CK [Catalytic activity/Vol]o n 10-15-2023 [facility] CPK 82 U/L Normal 24-170 [facility] Comment on above: Performed By: #### C VIRGILIO, MARIO, 92988-9, 79275-3, 36785-6 #### [facility] ([id number]) [address] [place] [address], [place] [address] COMPLEMENT PROFILEon 024 COMPLEMENT C3 113 mg/dL Normal 86-184 [facility] Comment on above: Performed By: #### C BCA, BMP, 95486-4, 48130-1, 14078-8 #### [facility] ([id number]) [address] [place] [address] 16586 COMPLEMENT C4 36 mg/dL Normal 16-47 [facility] Comment on above: Performed By: #### C BCA, BMP, , 74194-6, 09666-5 #### [facility] ([id number]) [address] [place] [address] 11864 COMPREHENSIVE METABOLIC PANE Phu 10-15-2023 Albumin [Mass/Vol] 2.8 g/dL Low 3.2-5.3 [facility] Comment on above: Performed By: #### C BCA, CMP, #### [facility] ([id number]) [address] [place] [address] 33074 ALP [Catalytic activity/Vol] 61 U/L Normal 39-130 [facility] Comment on above: Performed By: #### C BCA, CMP, 73800-0 #### [facility] ([id number]) [address] [place] [address] 22948 ALT [Catalytic activity/Vol] 10 U/L Normal 0-31 [facility] Comment on above: Performed By: #### C BCA, CMP, 09462-2 #### [facility] ([id number]) [address] [place] [address] 51845 Anion gap [Moles/Vol] 10 mmol/L Normal 5-15 [facility] Comment on above: Performed By: #### C BCA, CMP, 37918-7 #### [facility] ([id number]) [address] [place] [address] 56654 AST [Catalytic activity/Vol] 14 U/L Normal 0-41 [facility] Comment on above: Performed By: #### C VIRGILIO CMP, 98946-0 #### [facility] ([id number]) [address] [place] [address] 31622 Bilirubin [Mass/Vol] 0.4 mg/dL Normal 0.3-1.2 [facility] Comment on above: Performed By: #### C VIRGILIO, CMP, #### [facility] ([id number]) [address] [place] [address] 45754 Calcium [Mass/Vol] 8.4 mg/dL Low 8.5-10.5 [facility] Comment on above: Performed By: #### C VIRGILIO, [facility], 96717-2 #### [facility] ([id number]) [address] [place] [address] 13842 Chloride [Moles/Vol] 104 mmol/L Normal 98-109 [facility] Comment on above: Performed By: #### Shahla POOLE [facility], 63197-8 #### [facility] ([id number]) [address] [place] [address] 37877 CO2 [Moles/Vol] 26 mmol/L Normal 22-32 [facility] Comment on above: Performed By: #### Shahla POOLE [facility], 15456-9 #### [facility] ([id number]) [address] [place] [address] 80888 Creatinine [Mass/Vol] 2.56 mg/dL High 0.40-1.00 [facility] Comment on above: Result Comment: METH OD TRACEABLE TO IDMS STANDARD Performed By: #### C VIRGILIO, CMP, 11466-4 #### [facility] ([id number]) [address] [place] [address] 01912 GFR/1.73 sq M.predicted among non-blacks MDRD (S/P/Bld) [Vol rate/Area] 21 mL/min/{1.73_m2} Low >59 [facility] Comment on above: Result Comment: Reported eGFR is based on the CKD-EPI 2020 equation that does not use a race coefficient. Performed By: #### C EDEL POOLE, 66535-4 #### [facility] ([id number]) [address] [place] [address] 68030 Glucose [Mass/Vol] 103 mg/dL High 65-99 [facility] Comment on above: Performed By: #### C EDEL POOLE, 27687-1 #### [facility] ([id number]) [address] [place] [address] 92644 Potassium [Moles/Vol] 3.2 mmol/L Low 3.5-5.0 [facility] Comment on above: Performed By: #### C EDEL POOLE, #### [facility] ([id number]) [address] [place] [address] 54804 Protein [Mass/Vol] 5.6 g/dL Low 6.0-8.0 [facility] Comment on above: Performed By: #### C VIRGILIO [facility], 33264-3 #### [facility] ([id number]) [address] [place] [address] 84104 Sodium [Moles/Vol] 140 mmol/L Normal 134-146 [facility] Comment on above: Performed By: #### C VIRGILIO [facility], 76532-0 #### [facility] ([id number]) [address] [place] [address] 94374 Urea nitrogen [Mass/Vol] 20 mg/dL Normal 5-23 [facility] Comment on above: Performed By: #### C EDEL POOLE, 64080-4 #### [facility] ([id number]) [address] [place] [address] 36806 CRYOGLOBULIN WITH IDon 10-14 CRYOGLOBULIN, QUAL NEG 72HOUR Normal NEG 72Hour [facility] Comment on above: Result Comment: NOTE This test was developed and its performance characteristics determined by [facility]. It has not been cleared or approved by the [place] Food and Drug Administration. This test was performed in a CLIA certified laboratory and is intended for clinical purposes. Performed By: [facility] [address] [place] [address] 45235 Efficiency Manager: Hank Armstrong MD, PhD CLIA Number: [id number] Performed By: #### 8 9579-7 #### [facility] ([id number]) [address] [place] [address], [place] [address] Cobalamin (Vitamin B12) [Mas s/Vol]on 10-15-2023 Interpretation and review of laboratory results Abnormal [facility] Complement profile (C3 AND C 4)on 10-15-2023 Complement C3 [Mass/Vol] 113 mg/dL 86 - 184 mg/dL [facility] Complement C4 [Mass/Vol] 36 mg/dL 16 - 47 mg/dL [facility] Comprehensive metabolic pane phu 10-15-2023 Albumin [Mass/Vol] 2.8 g/dL Low 3.2 - 5.3 g/dL [facility] ALP [Catalytic activity/Vol] 61 U/L 39 - 130 U/L [facility] ALT No additional P-5'-P [Catalytic activity/Vol] 10 U/L 0 - 31 U/L [facility] Anion gap [Moles/Vol] 10 mmol/L 5 - 15 mmol/L [facility] AST [Catalytic activity/Vol] 14 U/L 0 - 41 U/L [facility] Bilirubin [Mass/Vol] 0.4 mg/dL 0.3 - 1 .2 mg/dL [facility] Calcium [Mass/Vol] 8.4 mg/dL Low 8.5 - 10. 5 mg/dL [facility] Chloride [Moles/Vol] 104 mmol/L 98 - 10 9 mmol/L [facility] CO2 [Moles/Vol] 26 mmol/L 22 - 32 mmol/L [facility] Creatinine [Mass/Vol] 2.56 mg/dL High 0.40 - 1.00 mg/dL [facility] Comment on above: METHOD TRACEABLE TO [facility] STANDARD eGFR (CKD-EPI)non-race dependent 21 Low - PINF [facility] Comment on above: Reported eGFR is based on the CKD-EPI 2020 equation that does not use a race coefficient. Glucose [Mass/Vol] 103 mg/dL High 65 - 99 mg/dL [facility] Potassium [Moles/Vol] 3.2 mmol/L Low 3.5 - 5.0 mmol/L [facility] Protein [Mass/Vol] 5.6 g/dL Low 6.0 - 8.0 g/dL [facility] Sodium [Moles/Vol] 140 mmol/L 134 - 146 mmol/L [facility] Urea nitrogen [Mass/Vol] 20 mg/dL 5 - 23 mg/dL [facility] Creatinine (U) [Mass/Vol]on 10-15-2023 [facility] URINE CREATININE,RDM 102.61 mg/dL Normal [facility] Comment on above: Performed By: #### C MARIO POOLE, , 11895-7, 80836-8 #### [facility] ([id number]) [address] [place] [address] 74587 FERRITINon 10-15-2023 Ferritin [Mass/Vol] 45 ng/mL Normal 11-307 [facility] Comment on above: Performed By: #### C MARIO POOLE, 84812-2, 39041-6, 16182-2 #### [facility] ([id number]) [address] [place] [address] 98901 FREE LIGHT CHAINSon 10-15-19 24 FREE ANDREA/LAMBD RATIO 0.94 Normal 0.26-1.65 [facility] Comment on above: Performed By: #### C MARIO POOLE, , 72023-5, 50178-5 #### [facility] ([id number]) [address] [place] [address] 28428 FREE KAPPA LT CHAINS 3.52 mg/dL High 0.33-1.94 [facility] Comment on above: Performed By: #### C MARIO POOLE, , 03853-3, 91573-7 #### [facility] ([id number]) [address] [place] [address] 68928 FREE LAMBDA LT CHAINS 3.75 mg/dL High 0.57-2.63 [facility] Comment on above: Performed By: #### C MARIO POOLE, , 01608-1, 49972-0 #### [facility] ([id number]) [address] [place] [address] 91541 Ferritinon 10-15-2023 Ferritin [Mass/Vol] 45 ng/mL 11 - 307 ng/mL [facility] Ferritin [Mass/Vol]on 2023 [facility] Folateon 10-15-2023 Folate [Mass/Vol] 10.3 ng/mL 5.8 - PINF ng/mL [facility] Comment on above: NEW REFERENCE RANGE Folate [Mass/Vol]on 10-15-19 24 [facility] FOLIC ACID 10.3 ng/mL Normal >5.8 [facility] Comment on above: Result Comment: NEW REFERENCE RANGE Performed By: #### C MARIO POOLE, , 17453-9, 13965-9 #### [facility] ([id number]) [address] [place] [address] 84924 HBV surface Ab IA Qnon 10-14 Anti HBs quant. <8.00 Normal [facility] Comment on above: Result Comment: Vacc inated: >=12mIU/mL, Positive (Immune) Unvaccinated: <8mIU/mL, Negative (Not Immune) 8-11.99 mIU/mL: Indeterminate, (Considered Not Immune) Performed By: #### C MARIO POOLE, , 06801-3, 49438-0 #### [facility] ([id number]) [address] [place] [address] 64800 HBV surface Ag IA Qlon 10-14 HEPATITIS B SURF AG Negative Normal NEG [facility] Comment on above: Performed By: #### C MARIO POOLE, 56001-1, 64779-8, 07583-7 #### [facility] ([id number]) [address] [place] [address] HCV Ab IA Qlon 10-15-2023 ANTI HCV W/PCR REFLX Non-Reactive Normal NRCT [facility] Comment on above: Result Comment: If recent infection suspected, recommend repeat testing (>2 months). Pwpbui-zm-ftqnsk ratio is <0.80. Performed By: #### C VIRGILIO, MARIO, 41013-9, 93428-1, 75479-3 #### [facility] ([id number]) [address] [place] [address] HIV 1&2 AB/AG Screen (P24 AG )on 10-15-2023 HIV 1+2 Ab+HIV1 p24 Ag IA Ql Non-Reactive Non-Reacti ve^Non-[place] ctive [facility] Comment on above: This information has been [...] Performed By: #### C MARIO POOLE, , 91163-3, 78459-0 #### [facility] ([id number]) [address] [place] [address] 81006 Hepatitis B Surface Antibody Quantitationon 10-15-2023 HBV surface Ab IA Qn mIU/mL [facility] Comment on above: Vaccinated: >=12mIU/ mL, Positive (Immune) Unvaccinated: <8mIU/mL, Negative (Not Immune) 8-11.99 mIU/mL: Indeterminate, (Considered Not Immune) Hepatitis B surface antigeno n 10-15-2023 HBV surface Ag IA Ql Negative Negativ e^N egative [facility] Hepatitis C(HCV) Ab w/ Refle x to PCRon 10-15-2023 HCV Ab IA Ql Non-Reactive Non-Reacti ve^Non-[place] ctive [facility] Comment on above: If recent infection suspected, recommend repeat testing (>2 months). Bpymmp-ov-siiyyd ratio is <0.80. IRON PROFILEon 10-15-2023 Iron [Mass/Vol] 30 ug/dL Low 50-170 [facility] Comment on above: Performed By: #### C MARIO POOLE, , 24307-4, 64543-0 #### [facility] ([id number]) [address] [place] [address] 71414 IRON BINDING 218 ug/dL Low 250-425 [facility] Comment on above: Performed By: #### C MARIO POOLE, , 51442-6, 97279-9 #### [facility] ([id number]) [address] [place] [address] 43559 IRON SATURATION 14 % SATURATION Low 15-50 [facility] Comment on above: Performed By: #### C MARIO POOLE, 13138-1, 36100-4, 96833-9 #### [facility] ([id number]) [address] [place] [address] 24015 Iron and TIBCon 10-15-2023 Interpretation and review of laboratory results Abnormal [facility] Iron [Mass/Vol] 30 ug/dL Low 50 - 170 ug/dL [facility] Iron binding capacity [Mass/Vol] 218 ug/dL Low 250 - 425 ug/dL [facility] Iron saturation [Mass fraction] 14 Low [facility] MAGNESIUMon 10-15-2023 Magnesium [Mass/Vol] 1.7 mg/dL Low 1.8-2.6 [facility] Comment on above: Performed By: #### C VIRGILIO, CMP, 22843-9 #### [facility] ([id number]) [address] [place] [address] 90016 Magnesiumon 10-15-2023 Magnesium [Mass/Vol] 1.7 mg/dL Low 1.8 - 2 .6 mg/dL [facility] Myeloperoxidase IgG Qn (S)on 10-15-2023 Myeloperoxidase IgG >8.0 High <0.4 (Negative) [facility] Comment on above: Result Comment: NOTE Interpretation: Positive (>=1.0) Test Performed by: [place] [address] Leadership Program Associate: Ledy Son Ph.D.; CLIA# [id number] Performed By: #### C VIRGILIO, BMP, 25226-9, 97853-9, 45016-2 #### [facility] ([id number]) [address] [place] [address] 08962 No Panel Informationon 10-14 [facility] Interpretation and review of laboratory results Abnormal [facility] Nuclear Ab IA Ql (S)on 10-14 SAUL Screen w/reflex Negative Normal NEG [facility] Comment on above: Result Comment: Testing performed using multiplex flow immunoassay. Eleven different antigens associated with systemic autoimmune diseases (dsDNA,Sm,Sm/DOT COMPLIANCE MANAGER,DOT COMPLIANCE MANAGER,Chromatin, SSA,SSB,Yoly-1,Scl70,Ribo P,Centromere B) are included in this screening test. Performed By: #### C MARIO POOLE, 47592-2, 82981-5, 03942-2 #### [facility] ([id number]) [address] [place] [address] 32682 POTASSIUMon 10-15-2023 Potassium [Moles/Vol] 3.5 mmol/L Normal 3.5-5.0 [facility] Comment on above: Performed By: #### C MARIO POOLE, 29279-8, 54205-2, 61611-6 #### [facility] ([id number]) [address] [place] [address] 93217 Potassiumon 10-15-2023 Potassium [Moles/Vol] 3.5 mmol/L 3.5 - 5.0 mmol/L [facility] Potassium [Moles/Vol]on 09-23 [facility] [facility] Protein[facility] 3 IgG IA Qnon Proteinase 3 IgG 0.2 U Normal <0.4 (Negative) [facility] Comment on above: Result Comment: NOTE Test Performed by: [facility] [address] [place] [address] Leadership Program Associate: Ledy Son Ph.D.; CLIA# [id number] Performed By: #### C MARIO POOLE, 15985-8, 22276-3, 48309-1 #### [facility] ([id number]) [address] [place] [address] 61742 Rheumatoid factoron 10-15-19 24 Rheumatoid factor Nephelometry Qn (S) 76 High NINF [facility] Rheumatoid factor Nephelomet ry Qn (S)on 10-15-2023 Interpretation and review of laboratory results Abnormal [facility] RHEUMATOID FACTOR 76 IU/mL High <[address] [facility] Comment on above: Performed By: #### C BCA, BMP, , 74223-3, 99934-6 #### [facility] ([id number]) [address] [place] [address] 57546 SERUM PROTEIN ELECTROPHORESI Son 10-15-2023 Albumin [Mass/Vol] 2.5 g/dL Low 3.4-5.3 [facility] Comment on above: Performed By: #### C BCA, BMP, , 85559-2, 29433-3 #### [facility] ([id number]) [address] [place] [address] 61108 ALPHA 1 GLOBULIN 0.4 g/dL Normal 0.1-0.4 [facility] Comment on above: Performed By: #### C BCA, BMP, , 78295-9, 41966-7 #### [facility] ([id number]) [address] [place] [address] 93856 ALPHA 2 GLOBULIN 0.9 g/dL Normal 0.4-1.1 [facility] Comment on above: Performed By: #### C BCA, BMP, , 28257-5, 25008-8 #### [facility] ([id number]) [address] [place] [address] 68915 BETA GLOBULIN 0.5 g/dL Normal 0.5-1.2 [facility] Comment on above: Performed By: #### C BCA, BMP, , 77478-0, 09610-7 #### [facility] ([id number]) [address] [place] [address] 74528 GAMMA GLOBULIN 0.4 g/dL Low 0.5-1.6 [facility] Comment on above: Performed By: #### C BCA, BMP, , 27591-0, 44866-8 #### [facility] ([id number]) [address] [place] [address] 33832 PROT. ELECTROPHORESIS INTERP Unremarkable protein distribution, no monoclonal bands. Normal [facility] Comment on above: Performed By: #### C MARIO POOLE, , 44073-5, 01253-8 #### [facility] ([id number]) [address] [facility], [place] [address] Protein [Mass/Vol] 4.7 g/dL Low 6.0-8.0 [facility] Comment on above: Performed By: #### C VIRGILIO, BMP, , 45048-3, 70136-0 #### [facility] ([id number]) [address] [place] [address], [place] [address] Sodium (U) [Moles/Vol]on [facility] Sodium, urine, randomon 09-23 Sodium (U) [Moles/Vol] 86 mmol/L Pr [facility] Troponin I, High Sensitivity 1 Houron 10-15-2023 Troponin I.cardiac High sensitivity method [Mass/Vol] 39 ng/L High NINF - 16 ng/L [facility] Comment on above: Elevations of hs-Troponin may be due to causes other than myocardial ischemia. Recommend serial hs-Troponin testing be performed. For the initial evaluation and management of chest pain patients, refer to the algorithms linked below. Emergency Patient: [email or web address] Inpatient: [email or web address] Troponin I.cardiac High sens itivity method [Mass/Vol]on 10-15-2023 Interpretation and review of laboratory results Abnormal [facility] URINALYSISon 10-15-2023 Bilirubin Ql (U) Negative Normal NEG [facility] Comment on above: Performed By: #### C VIRGILIO, BMP, , 31486-2, 70137-4 #### [facility] ([id number]) [address] [place] [address] [place] [address] BLOOD/HGB Large Abnormal NEG [facility] Comment on above: Performed By: #### C BCA, BMP, 08576-6, 25733-2, 57119-4 #### [facility] ([id number]) [address] [place] [address] [place] [address] Color (U) YELLOW Normal YELLOW [facility] Comment on above: Performed By: #### C BCA, BMP, 12573-5, 99777-0, 62714-4 #### [facility] ([id number]) [address] [place] [address] [place] [address] Glucose Ql (U) Negative Normal NEG [facility] Comment on above: Performed By: #### C BCA, BMP, 16382-9, 30169-9, 20082-0 #### [facility] ([id number]) [address] [place] [address] [place] [address] Ketones Ql (U) Negative Normal NEG [facility] Comment on above: Performed By: #### C BCA, BMP, 33301-3, 84292-9, 84738-3 #### [facility] ([id number]) [address] [place] [address] [place] [address] Leukocyte esterase Test strip Ql (U) Negative Normal NEG [facility] Comment on above: Performed By: #### C BCA, BMP, 46075-1, 54617-2, 41588-2 #### [facility] ([id number]) [address] [place] [address] 61432 Nitrite Ql (U) Negative Normal NEG [facility] Comment on above: Performed By: #### C BCA, BMP, 28482-7, 20010-7, 89783-5 #### [facility] ([id number]) [address] [place] [address], [place] [address] pH (U) 6.0 [pH] Normal 5.0-8.5 [facility] Comment on above: Performed By: #### C VIRGILIO, BMP, 62507-2, 69258-3, 38792-4 #### [facility] ([id number]) [address] [place] [address] 10415 Protein Ql (U) >300 Abnormal NEG [facility] Comment on above: Performed By: #### C VIRGILIO, BMP, 73289-9, 26151-2, 71703-3 #### [facility] ([id number]) [address] [place] [address] 85989 R.B.CELLS 30 /hpf High 0-5 [facility] Comment on above: Performed By: #### C VIRGILIO, BMP, 42098-6, 16761-2, 38204-2 #### [facility] ([id number]) [address] [place] [address] 37826 Specific gravity (U) [Rel density] 1.025 Normal 1.003-1.[address] [place] [address] Comment on above: Performed By: #### C VIRGILIO, BMP, 29670-4, 76049-9, 03712-8 #### [facility] ([id number]) [address] [place] [address] 09810 SQUAMOUS EPITHELIUM 6 /hpf High 0-5 [facility] Comment on above: Performed By: #### C VIRGILIO, BMP, 59567-6, 70803-0, 42023-6 #### [facility] ([id number]) [address] [place] [address] 14984 TURBIDITY CLEAR Normal CLEAR [facility] Comment on above: Performed By: #### C VIRGILIO, BMP, 07398-9, 62407-9, 25409-1 #### [facility] ([id number]) [address] [place] [address], [place] [address] Urobilinogen Qn (U) 0.2 {Micaela'U}/dL Normal <1.1 [facility] Comment on above: Performed By: #### C MARIO POOLE, 02426-6, 73108-8, 27938-1 #### [facility] ([id number]) [address] [place] [address] 05159 W.B.CELLS 10 /hpf High 0-5 [facility] Comment on above: Performed By: #### C VIRGILIO, MARIO, 04034-4, 50611-7, 58168-3 #### [facility] ([id number]) [address] [place] [address] 44489 URINE SODIUM,RANDOMon 2023 Sodium (U) [Moles/Vol] 86 mmol/L Normal [facility] Comment on above: Performed By: #### C VIRGILIO, MARIO, , 18982-8, 83917-6 #### [facility] ([id number]) [address] [place] [address] 44928 Urinalysison 10-15-2023 Bilirubin Ql (U) Negative Negative^N [...] [Mass/Vol] mg/dL Abnormal Negat marva^N egative mg/dL [facility] RBC Auto (Urine sed) [#/Area] 30 High [facility] Specific gravity Refractometry automated (U) [Rel density] 1.025 1.003 - 1.035 [facility] Turbidity Ql (U) CLEAR CLEAR^NUNU R [facility] Urobilinogen Qn (U) 0.2 NINF [facility] WBC Auto (Urine sed) [#/Area] 10 High [facility] Urine Creatinine,randomon Creatinine (U) [Mass/Vol] 102.61 mg/dL [facility] VITAMIN B12on 10-15-2023 Cobalamin (Vitamin B12) [Mass/Vol] 159 pg/mL Low 180-914 [facility] Comment on above: Performed By: #### C VIRGILIO BMP, 79796-5, 46758-2, 07389-5 #### [facility] ([id number]) [address] [place] [address] 96325 Vitamin B12on 10-15-2023 Cobalamin (Vitamin B12) [Mass/Vol] 159 pg/mL Low 180 - 914 pg/mL [facility] BASIC METABOLIC PANLon 10-13 Anion gap [Moles/Vol] 5 mmol/L Normal 5-15 [facility] Comment on above: Performed By: #### C VIRGILIO BMP, , 22808-1, 37135-9 #### [facility] ([id number]) [address] [place] [address] 57043 Calcium [Mass/Vol] 8.1 mg/dL Low 8.5-10.5 [facility] Comment on above: Performed By: #### C BCA BMP, , 45044-3, 86713-1 #### [facility] ([id number]) [address] [place] [address] 94360 Chloride [Moles/Vol] 107 mmol/L Normal 98-109 [facility] Comment on above: Performed By: #### C VIRGILIO, BMP, , 51415-5, 63554-3 #### [facility] ([id number]) [address] [place] [address] 69863 CO2 [Moles/Vol] 27 mmol/L Normal 22-32 [facility] Comment on above: Performed By: #### C BCA, BMP, , 37675-4, 07170-3 #### [facility] ([id number]) [address] [place] [address] 97890 Creatinine [Mass/Vol] 2.56 mg/dL High 0.40-1.00 [facility] Comment on above: Result Comment: METH OD TRACEABLE TO IDMS STANDARD Performed By: #### C VIRGILIO, BMP, , 80544-6, 38642-2 #### [facility] ([id number]) [address] [place] [address] 80635 GFR/1.73 sq M.predicted among non-blacks MDRD (S/P/Bld) [Vol rate/Area] 21 mL/min/{1.73_m2} Low >59 [facility] Comment on above: Result Comment: Reported eGFR is based on the CKD-EPI 2020 equation that does not use a race coefficient. Performed By: #### C VIRGILIO, BMP, , 36223-8, 86807-0 #### [facility] ([id number]) [address] [place] [address] 35405 Glucose [Mass/Vol] 95 mg/dL Normal 65-99 [facility] Comment on above: Performed By: #### C BCA, BMP, , 80904-5, 49296-8 #### [facility] ([id number]) [address] [place] [address] 56641 Potassium [Moles/Vol] 3.1 mmol/L Low 3.5-5.0 [facility] Comment on above: Performed By: #### C BCA, BMP, 16177-1, 10698-0, 50930-0 #### [facility] ([id number]) [address] [place] [address] 76944 Sodium [Moles/Vol] 139 mmol/L Normal 134-146 [facility] Comment on above: Performed By: #### C BCA, BMP, 44833-0, 36531-1, 25551-2 #### [facility] ([id number]) [address] [place] [address] 52004 Urea nitrogen [Mass/Vol] 19 mg/dL Normal 5-23 [facility] Comment on above: Performed By: #### C BCA, BMP, 46205-3, 05052-1, 32839-3 #### [facility] ([id number]) [address] [place] [address] 26814 Basic Metabolic Panelon - Anion gap [Moles/Vol] 5 mmol/L 5 - 15 mmol/L [facility] Calcium [Mass/Vol] 8.1 mg/dL Low 8.5 - 10. 5 mg/dL [facility] Chloride [Moles/Vol] 107 mmol/L 98 - 10 9 mmol/L [facility] CO2 [Moles/Vol] 27 mmol/L 22 - 32 mmol/L [facility] Creatinine [Mass/Vol] 2.56 mg/dL High 0.40 - 1.00 mg/dL [facility] Comment on above: METHOD TRACEABLE TO IDMS STANDARD eGFR (CKD-EPI)non-race dependent 21 Low - PINF [facility] Comment on above: Reported eGFR is based on the CKD-EPI 2020 equation that does not use a race coefficient. Glucose [Mass/Vol] 95 mg/dL 65 - 99 mg/dL [facility] Interpretation and review of laboratory results Abnormal [facility] Potassium [Moles/Vol] 3.1 mmol/L Low 3.5 - 5.0 mmol/L [facility] Sodium [Moles/Vol] 139 mmol/L 134 - 146 mmol/L [facility] Urea nitrogen [Mass/Vol] 19 mg/dL 5 - 23 mg/dL [facility] CBC AND AUTO DIFFon 10-14-19 24 ABSOLUTE BASOPHIL 0.1 X10E9/L Normal 0.0-0.2 [facility] Comment on above: Performed By: #### C VIRGILIO, BMP, , 84472-1, 56133-7 #### [facility] ([id number]) [address] [place] [address] 39989 ABSOLUTE NEUTROPHIL 5.7 X10E9/L Normal 1.5-6.6 [facility] Comment on above: Performed By: #### Shahla POOLE, BMP, , 63840-9, 26261-0 #### [facility] ([id number]) [address] [place] [address] 36122 Basophils/100 WBC (Bld) 0.7 % Normal [facility] Comment on above: Performed By: #### C VIRGILIO, BMP, , 08309-7, 08960-2 #### [facility] ([id number]) [address] [place] [address] 73903 Eosinophils (Bld) [#/Vol] 0.5 10*3/uL High 0.0-0.4 [facility] Comment on above: Performed By: #### Shahla POOLE, BMP, , 27130-1, 33323-7 #### [facility] ([id number]) [address] [place] [address] 74463 Eosinophils/100 WBC (Bld) 4.9 % Normal [facility] Comment on above: Performed By: #### Shahla BCA, BMP, , 76100-7, 47951-0 #### [facility] ([id number]) [address] [place] [address] 22949 Erythrocyte distribution width (RBC) [Ratio] 14.6 % Normal 11.5-15.0 [facility] Comment on above: Performed By: #### C VIRGILIO, BMP, 67523-8, 83542-5, 93525-0 #### [facility] ([id number]) [address] [place] [address] 40459 Hematocrit (Bld) [Volume fraction] 33.2 % Low 35-47 [facility] Comment on above: Performed By: #### C BCA, BMP, 45619-4, 46084-1, 32475-5 #### [facility] ([id number]) [address] [place] [address] 70216 Hemoglobin (Bld) [Mass/Vol] 10.9 g/dL Low 11.7-15.5 [facility] Comment on above: Performed By: #### Shahla POOLE, BMP, , 74775-3, 31009-5 #### [facility] ([id number]) [address] [place] [address] 74151 Lymphocytes (Bld) [#/Vol] 2.8 10*3/uL Normal 1.0-3.5 [facility] Comment on above: Performed By: #### C BCA, BMP, , 13564-5, 15554-3 #### [facility] ([id number]) [address] [place] [address] 30188 Lymphocytes/100 WBC (Bld) 28.7 % Normal [facility] Comment on above: Performed By: #### C BCA, BMP, 71263-4, 53169-3, 01223-1 #### [facility] ([id number]) [address] [place] [address] 44802 MCH (RBC) [Entitic mass] 27.7 pg Normal 27-34 [facility] Comment on above: Performed By: #### C BCA, BMP, 99177-7, 05720-9, 41316-3 #### [facility] ([id number]) [address] [place] [address] 56548 MCHC (RBC) [Mass/Vol] 32.9 g/dL Normal 32-36 [facility] Comment on above: Performed By: #### Shahla POOLE, MARIO, , 44356-5, 00216-5 #### [facility] ([id number]) [address] [place] [address] 60288 MCV (RBC) [Entitic vol] 84 fL Normal 80-100 [facility] Comment on above: Performed By: #### Shahla POOLE, MARIO, , 13085-7, 64309-4 #### [facility] ([id number]) [address] [place] [address] 82706 Monocytes (Bld) [#/Vol] 0.8 10*3/uL Normal 0-0.9 [facility] Comment on above: Performed By: #### Shahla POOLE, MARIO, , 57377-2, 30777-8 #### [facility] ([id number]) [address] [place] [address] 68672 Monocytes/100 WBC (Bld) 8.1 % Normal [facility] Comment on above: Performed By: #### Shahla POOLE, BMP, , 44734-7, 18771-8 #### [facility] ([id number]) [address] [place] [address] 82797 Neutrophils/100 WBC (Bld) 57.6 % Normal [facility] Comment on above: Performed By: #### Shahla POOLE, BMP, , 98747-1, 92826-7 #### [facility] ([id number]) [address] [place] [address] 13990 Platelet mean volume (Bld) [Entitic vol] 8.9 fL Normal 7-12 [facility] Comment on above: Performed By: #### Shahla POOLE, MARIO, 56839-7, 91758-6, 90342-7 #### [facility] ([id number]) [address] [place] [address] 14321 Platelets (Bld) [#/Vol] 319 10*3/uL Normal 150-450 [facility] Comment on above: Performed By: #### Shahla POOLE, MARIO, , 08832-4, 81238-3 #### [facility] ([id number]) [address] [place] [address] 84438 RBC COUNT 3.95 X10E12/L Normal 3.80-5.20 [facility] Comment on above: Performed By: #### Shahla POOLE, MARIO, , 13141-0, 79314-3 #### [facility] ([id number]) [address] [place] [address] 42851 WBC (Bld) [#/Vol] 9.9 10*3/uL Normal 4.0-11.0 [facility] Comment on above: Performed By: #### Shahla POOLE, MARIO, , 44152-7, 75048-5 #### [facility] ([id number]) [address] [place] [address] 06048 CBC auto differentialon 09-23 Basophils (Bld) [#/Vol] [...] 10.9 g/dL Low 11.7 - 15.5 g/dL [facility] Interpretation and review of laboratory results Abnormal [facility] Lymphocytes (Bld) [#/Vol] 2.8 10*3/uL [facility] Lymphocytes/100 WBC (Bld) 28.7 % [facility] MCH (RBC) [Entitic mass] 27.7 pg 27 - 34 [facility] MCHC (RBC) [Mass/Vol] 32.9 g/dL 32 - 3 6 g/dL [facility] MCV (RBC) [Entitic vol] 84 fL 80 - 100 fL [facility] Monocytes (Bld) [#/Vol] 0.8 10*3/uL [facility] Monocytes/100 WBC (Bld) 8.1 % P [facility] Neutrophils (Bld) [#/Vol] 5.7 10*3/uL [facility] Neutrophils/100 WBC (Bld) 57.6 % [facility] Platelet mean volume (Bld) [Entitic vol] 8.9 fL 7 - 12 fL [facility] Platelets (Bld) [#/Vol] 319 10*3/uL [facility] RBC (Bld) [#/Vol] 3.95 10*6/uL [facility] WBC corrected for nucl RBC Auto (Bld) [#/Vol] 9.9 [facility] ECG 12 leadOrdered By: Mauricio Huber on 10-14-2023 [facility] MAGNESIUMon 10-14-2023 Magnesium [Mass/Vol] 1.8 mg/dL Normal 1.8-2.6 [facility] Comment on above: Performed By: #### C BCA, BMP, 17301-3, 72586-0, 33304-1 #### [facility] ([id number]) [address] [place] [address] Magnesiumon 10-14-2023 Magnesium [Mass/Vol] 1.8 mg/dL 1.8 - 2 .6 mg/dL [facility] Natriuretic peptide B [Mass/ Vol]on 10-14-2023 Interpretation and review of laboratory results Abnormal [facility] Natriuretic peptide B (Bld) [Mass/Vol] 427 pg/mL High NINF - 100.0 pg/mL [facility] Natriuretic peptide B (Bld) [Mass/Vol] 427 pg/mL High <100.0 [facility] Comment on above: Performed By: #### C BCA, BMP, 47692-8, 55281-5, 93172-7 #### [facility] ([id number]) [address] [place] [address], [place] [address] No Panel Informationon 10-13 [facility] Troponin I, High Sensitivity on 10-14-2023 Troponin I.cardiac High sensitivity method [Mass/Vol] 39 ng/L High NINF - 16 ng/L [facility] Comment on above: Elevations of hs-Troponin may be due to causes other than myocardial ischemia. Recommend serial hs-Troponin testing be performed. For the initial evaluation and management of chest pain patients, refer to the algorithms linked below. Emergency Patient: [email or web address] 5&uh=acaea Inpatient: [email or web address] 5&uh=acaea Troponin I.cardiac High sens itivity method [...] to the algorithms linked below. Emergency Patient: [email or web address] 5&uh=acaea Inpatient: [email or web address] 5&uh=acaea Performed By: #### 8 9579-7 #### [facility] ([id number]) [address] [place] [address] 99755 Interpretation and review of laboratory results Abnormal [facility] TROPONIN I, HIGH SENSITIVITY 39 ng/L High <16 [facility] Comment on above: Result Comment: Elevations of hs-Troponin may be due to causes other than myocardial ischemia. Recommend serial hs-Troponin testing be performed. For the initial evaluation and management of chest pain patients, refer to the algorithms linked below. Emergency Patient: [email or web address]&uh=acaea Inpatient: [email or web address] 5&uh=acaea Performed By: #### C BCA, BMP, 92606-8, 98119-4, 01973-4 #### [facility] ([id number]) [address] [place] [address], [place] [address] XR CHEST 1 VWon 10-14-2023 XR CHEST [...] 11:39 PM Normal [facility] XR Chest Single viewon 10-13 Single view [...] Naren Morris MD on 10/14/2023 11:39 PM [employer] Radiology Study observation (narrative) [employer] XR Chest Single viewOrdered By: Naren Morris on 10-14-2023 [employer] Work Phone: ANTIBODY ID PANELon 01-03-20 ANTIBODY ID PANEL Antibody ID Anti-Jka Normal [facility] Comment on above: Performed By: #### C TABBY, HSTROPN #### [facility] [address] [place] [address] Dr. Steve Valentin CBC AUTO DIFFon 12-31-2021 BASO # 0.0 103/ul Normal 0.0-0.1 [facility] Comment on above: Performed By: #### C TABBY, HSTROPN #### [facility] [address] [place] [address] Dr. Steve Valentin Basophils/100 WBC (Bld) 0.9 % Normal 0.2-2.0 [facility] Comment on above: Performed By: #### C TABBY, HSTROPN #### [facility] [address] [place] [address] Dr. Steve Valentin EO # 0.2 103/ul Normal 0.0-0.7 [facility] Comment on above: Performed By: #### C TABBY, HSTROPN #### [facility] [address] [place] [address] Dr. Steve Valentin Eosinophils/100 WBC (Bld) 4.3 % Normal 0.9-7.0 [facility] Comment on above: Performed By: #### C TABBY, HSTROPN #### [facility] [address] [address] [address] Steve Valentin Erythrocyte distribution width (RBC) [Ratio] 14.1 % Normal 11.0-15.0 [facility] Comment on above: Performed By: #### C MP, HSTROPN #### [facility] [address] [place] [address] Dr. Steve Valentin Hematocrit (Bld) [Volume fraction] 34.6 % Critically low 36.0-48.0 [facility] Comment on above: Performed By: #### C MP, HSTROPN #### [facility] [address] [place] [address] Dr. Steve Valentin Hemoglobin (Bld) [Mass/Vol] 10.9 g/dL Critically low 12.0-16.0 [facility] Comment on above: Performed By: #### C MP, HSTROPN #### [facility] [address] [place] [address] Dr. Steve Valentin IG # 0.01 10e3/ul Normal 0.00-0.03 [facility] Comment on above: Performed By: #### C MP, HSTROPN #### [facility] [address] [place] [address] Dr. Steve Valentin IG % 0.3 % Normal 0.0-0.5 [facility] Comment on above: Performed By: #### C MP, HSTROPN #### [facility] [address] [place] [address] Dr. Steve Valentin LYMPH # 0.9 103/ul Critically low 1.2-3.8 [facility] Comment on above: Performed By: #### C MP, HSTROPN #### [facility] [address] [place] [address] Dr. Steve Valentin Lymphocytes/100 WBC (Bld) 26.3 % Normal 20.5-60.0 [facility] [place] [facility] Comment on above: Performed By: #### C MP, HSTROPN #### [facility] [address] [place] [address] Dr. Steve Valentin MANUAL DIFF REQ NO Normal [facility] Comment on above: Performed By: #### C MP, HSTROPN #### [facility] [address] [place] [address] Dr. Steve Valentin MCH (RBC) [Entitic mass] 26.7 pg Normal 26.7-34.0 [facility] [place] [facility] Comment on above: Performed By: #### C MP, HSTROPN #### [facility] [address] [place] [address] Dr. Steve Valentin MCHC (RBC) [Mass/Vol] 31.5 g/dL Normal 29.9-35.2 [facility] [place] [facility] Comment on above: Performed By: #### C MP, HSTROPN #### [facility] [address] [place] [address] Dr. Steve Valentin MCV (RBC) [Entitic vol] 84.8 fL Normal 81.0-99.0 [facility] Comment on above: Performed By: #### C MP, HSTROPN #### [facility] [address] [place] [address] Dr. Steve Valentin MONO # 0.3 103/ul Normal 0.3-0.8 [facility] [place] [facility] Comment on above: Performed By: #### C MP, HSTROPN #### [facility] [address] [place] [address] Dr. Steve Valentin Monocytes/100 WBC (Bld) 9.5 % Normal 1.7-12.0 [facility] Comment on above: Performed By: #### C MP, HSTROPN #### [facility] [address] [place] [address] Dr. Steve Valentin NEUT # 2.0 103/ul Normal 1.4-6.5 [facility] [place] [facility] Comment on above: Performed By: #### C MP, HSTROPN #### [facility] [address] [place] [address] Dr. Steve Valentin Neutrophils/100 WBC (Bld) 58.7 % Normal 43.0-75.0 [facility] [place] [facility] Comment on above: Performed By: #### C MP, HSTROPN #### [facility] [address] [address] [address] Steve Valentin Platelet mean volume (Bld) [Entitic vol] 10.5 fL Normal 9.5-13.5 [facility] [place] [facility] Comment on above: Performed By: #### C MP, HSTROPN #### [facility] [address] [address] [address] Steve Valentin PLT 164 103/ul Normal 150-450 [facility] [place] [facility] Comment on above: Performed By: #### C MP, HSTROPN #### [facility] [address] [place] [address] Dr. Steve Valentin RBC 4.08 106/ul Critically low 4.20-5.40 [facility] Comment on above: Performed By: #### C MP, HSTROPN #### [facility] [address] [place] [address] Dr. Steve Valentin WBC 3.5 103/ul Critically low 4.0-11.0 [facility] Comment on above: Performed By: #### C MP, HSTROPN #### [facility] [address] [place] [address] Dr. Steve Valentin PROF 14(COMP METB)on 022 Albumin [Mass/Vol] 3.0 g/dL Critically low 3.4-5.0 [facility] Comment on above: Performed By: #### C MP #### [facility] [address] [place] [address] Dr. Steve Valentin Albumin/Globulin [Mass ratio] 1.0 {ratio} Normal [facility] [place] [facility] Comment on above: Performed By: #### C MP #### [facility] [address] [place] [address] Dr. Steve Valentin ALP [Catalytic activity/Vol] 56 U/L Normal 46-116 [facility] [place] [facility] Comment on above: Performed By: #### C MP #### [facility] [address] [place] [address] Dr. Steve Valentin ALT [Catalytic activity/Vol] 20 U/L Normal 14-59 [facility] [place] [facility] Comment on above: Performed By: #### C MP #### [facility] [address] [address] [address] Steve Valentin Anion gap [Moles/Vol] 9.3 mmol/L Normal [facility] [place] [facility] Comment on above: Performed By: #### C MP #### [facility] [address] [address] [address] Steve Valentin AST [Catalytic activity/Vol] 17 U/L Normal 15-37 [facility] [place] [facility] Comment on above: Performed By: #### C MP #### [facility] [address] [address] [address] Steve Valentin Bilirubin [Mass/Vol] 0.2 mg/dL Normal 0.2-1.0 [facility] [place] [facility] Comment on above: Performed By: #### C MP #### [facility] [address] [address] [address] Steve Valentin Calcium [Mass/Vol] 8.8 mg/dL Normal 8.5-10.1 [facility] Comment on above: Performed By: #### C MP #### [facility] [address] [address] [address] Steve Valentin Chloride [Moles/Vol] 106 mmol/L Normal 98-107 [facility] [place] [facility] Comment on above: Performed By: #### C MP #### [facility] [address] [address] [address] Steve Valentin CO2 [Moles/Vol] 26.5 mmol/L Normal 21.0-32.0 [facility] Comment on above: Performed By: #### C MP #### [facility] [address] [address] [address] Steve Valentin Creatinine [Mass/Vol] 0.92 mg/dL Normal 0.55-1.02 [facility] [place] [facility] Comment on above: Performed By: #### C MP #### [facility] [address] [place] [address] Dr. Steve Valentin EGFR-AF MALAGASY >60 Normal >=60 [facility] Comment on above: Performed By: #### C MP #### [facility] [address] [address] [address] Steve Valentin EGFR-NON AF MALAGASY >60 Normal >=60 [facility] [place] [facility] Comment on above: Performed By: #### C MP #### [facility] [address] [address] [address] Steve Valentin Globulin (S) [Mass/Vol] 2.9 g/dL Normal [facility] Comment on above: Performed By: #### C MP #### [facility] [address] [address] [address] Steve Valentin Glucose [Mass/Vol] 97 mg/dL Normal 74-106 [facility] Comment on above: Performed By: #### C MP #### [facility] [address] [address] [address] Steve Valentin Potassium [Moles/Vol] 3.8 mmol/L Normal 3.5-5.1 [facility] [place] [facility] Comment on above: Performed By: #### C MP #### [facility] [address] [address] [address] Steve Valentin Protein [Mass/Vol] 5.9 g/dL Critically low 6.4-8.2 [facility] Comment on above: Performed By: #### C MP #### [facility] [address] [address] [address] Steve Valentin Sodium [Moles/Vol] 138 mmol/L Normal 136-145 [facility] Comment on above: Performed By: #### C MP #### [facility] [address] [address] [address] Steve Valentin Urea nitrogen [Mass/Vol] 5.0 mg/dL Critically low 7.0-18. 0 [facility] [place] [facility] Comment on above: Performed By: #### C MP #### [facility] [address] [address] [address] Steve Valentin Urea nitrogen/Creatinine [Mass ratio] 5.4 mg/mg Normal [facility] [place] [facility] Comment on above: Performed By: #### C MP #### [facility] [address] [address] [address] Steve Valentin CBC AUTO DIFFon 12-30-2021 BASO # 0.0 103/ul Normal 0.0-0.1 [facility] [place] [facility] Comment on above: Performed By: #### C BC #### [facility] [address] [place] [address] Dr. Steve Valentin Basophils/100 WBC (Bld) 0.5 % Normal 0.2-2.0 [facility] Comment on above: Performed By: #### C BC #### [facility] [address] [place] [address] Dr. Steve Valentin EO # 0.1 103/ul Normal 0.0-0.7 [facility] [place] [facility] Comment on above: Performed By: #### C BC #### [facility] [address] [place] [address] Dr. Steve Valentin Eosinophils/100 WBC (Bld) 3.2 % Normal 0.9-7.0 [facility] [place] [facility] Comment on above: Performed By: #### C BC #### [facility] [address] [place] [address] Dr. Steve Valentin Erythrocyte distribution width (RBC) [Ratio] 14.0 % Normal 11.0-15.0 [facility] [place] [facility] Comment on above: Performed By: #### C BC #### [facility] [address] [place] [address] Dr. Steve Valentin Hematocrit (Bld) [Volume fraction] 38.3 % Normal 36.0-48.0 [facility] [place] [facility] Comment on above: Performed By: #### C BC #### [facility] [address] [place] [address] Dr. Steve Valentin Hemoglobin (Bld) [Mass/Vol] 11.7 g/dL Critically low 12.0-16.0 [facility] [place] [facility] Comment on above: Performed By: #### C BC #### [facility] [address] [place] [address] Dr. Steve Valentin IG # 0.01 10e3/ul Normal 0.00-0.03 [facility] [place] [facility] Comment on above: Performed By: #### C BC #### [facility] [address] [place] [address] Dr. Steve Valentin IG % 0.2 % Normal 0.0-0.5 [facility] [place] [facility] Comment on above: Performed By: #### C BC #### [facility] [address] [place] [address] Dr. Steve Valentin LYMPH # 1.3 103/ul Normal 1.2-3.8 [facility] [place] [facility] Comment on above: Performed By: #### C BC #### [facility] [address] [place] [address] Dr. Steve Valentin Lymphocytes/100 WBC (Bld) 29.6 % Normal 20.5-60.0 [facility] [place] [facility] Comment on above: Performed By: #### C BC #### [facility] [address] [place] [address] Dr. Steve Valentin MANUAL DIFF REQ NO Normal [facility] Comment on above: Performed By: #### C BC #### [facility] [address] [place] [address] Dr. Steve Valentin MCH (RBC) [Entitic mass] 26.0 pg Critically low 26.7-34 .0 [facility] [place] [facility] Comment on above: Performed By: #### C BC #### [facility] [address] [place] [address] Dr. Steve Valentin MCHC (RBC) [Mass/Vol] 30.5 g/dL Normal 29.9-35.2 [facility] [place] [facility] Comment on above: Performed By: #### C BC #### [facility] [address] [place] [address] Dr. Steve Valentin MCV (RBC) [Entitic vol] 85.1 fL Normal 81.0-99.0 [facility] Comment on above: Performed By: #### C BC #### [facility] [address] [place] [address] Dr. Steve Valentin MONO # 0.5 103/ul Normal 0.3-0.8 [facility] [place] [facility] Comment on above: Performed By: #### C BC #### [facility] [address] [place] [address] Dr. Steve Valentin Monocytes/100 WBC (Bld) 10.6 % Normal 1.7-12.0 [facility] Comment on above: Performed By: #### C BC #### [facility] [address] [place] [address] Dr. Steve Valentin NEUT # 2.4 103/ul Normal 1.4-6.5 [facility] [place] [facility] Comment on above: Performed By: #### C BC #### [facility] [address] [place] [address] Dr. Steve Valentin Neutrophils/100 WBC (Bld) 55.9 % Normal 43.0-75.0 [facility] [place] [facility] Comment on above: Performed By: #### C BC #### [facility] [address] [place] [address] Dr. Steve Valentin Platelet mean volume (Bld) [Entitic vol] 10.0 fL Normal 9.5-13.5 [facility] [place] [facility] Comment on above: Performed By: #### C BC #### [facility] [address] [place] [address] Dr. Steve Valentin PLT 169 103/ul Normal 150-450 [facility] [place] [facility] Comment on above: Performed By: #### C BC #### [facility] [address] [place] [address] Dr. Steve Valentin RBC 4.50 106/ul Normal 4.20-5.40 [facility] [place] [facility] Comment on above: Performed By: #### C BC #### [facility] [address] [place] [address] Dr. Steve Valentin WBC 4.4 103/ul Normal 4.0-11.0 [facility] [place] [facility] Comment on above: Performed By: #### C BC #### [facility] [address] [place] [address] Dr. Steve Valentin BASO # 0.0 103/ul Normal 0.0-0.1 [facility] [place] [facility] Comment on above: Performed By: #### C BC #### [facility] [address] [place] [address] Dr. Steve Valentin Basophils/100 WBC (Bld) 0.4 % Normal 0.2-2.0 [facility] Comment on above: Performed By: #### C BC #### [facility] [address] [place] [address] Dr. Steve Valentin EO # 0.2 103/ul Normal 0.0-0.7 [facility] [place] [facility] Comment on above: Performed By: #### C BC #### [facility] [address] [place] [address] Dr. Steve Valentin Eosinophils/100 WBC (Bld) 2.6 % Normal 0.9-7.0 [facility] [place] [facility] Comment on above: Performed By: #### C BC #### [facility] [address] [place] [address] Dr. Steve Valentin Erythrocyte distribution width (RBC) [Ratio] 13.9 % Normal 11.0-15.0 [facility] [place] [facility] Comment on above: Performed By: #### C BC #### [facility] [address] [place] [address] Dr. Steve Valentin Hematocrit (Bld) [Volume fraction] 39.1 % Normal 36.0-48.0 [facility] [place] [facility] Comment on above: Performed By: #### C BC #### [facility] [address] [place] [address] Dr. Steve Valentin Hemoglobin (Bld) [Mass/Vol] 12.3 g/dL Normal 12.0-16.0 [facility] [place] [facility] Comment on above: Performed By: #### C BC #### [facility] [address] [place] [address] Dr. Steve Valentin IG # 0.02 10e3/ul Normal 0.00-0.03 [facility] [place] [facility] Comment on above: Performed By: #### C BC #### [facility] [address] [place] [address] Dr. Steve Valentin IG % 0.4 % Normal 0.0-0.5 [facility] [place] [facility] Comment on above: Performed By: #### C BC #### [facility] [address] [place] [address] Dr. Steve Valentin LYMPH # 1.1 103/ul Critically low 1.2-3.8 [facility] Comment on above: Performed By: #### C BC #### [facility] [address] [place] [address] Dr. Steve Valentin Lymphocytes/100 WBC (Bld) 18.9 % Critically low 20.5-60.0 [facility] [place] [facility] Comment on above: Performed By: #### C BC #### [facility] [address] [place] [address] Dr. Steve Valentin MANUAL DIFF REQ NO Normal [facility] Comment on above: Performed By: #### C BC #### [facility] [address] [place] [address] Dr. Steve Valentin MCH (RBC) [Entitic mass] 26.3 pg Critically low 26.7-34 .0 [facility] [place] [facility] Comment on above: Performed By: #### C BC #### [facility] [address] [place] [address] Dr. Steve Valentin MCHC (RBC) [Mass/Vol] 31.5 g/dL Normal 29.9-35.2 [facility] [place] [facility] Comment on above: Performed By: #### C BC #### [facility] [address] [place] [address] Dr. Steve Valentin MCV (RBC) [Entitic vol] 83.7 fL Normal 81.0-99.0 [facility] Comment on above: Performed By: #### C BC #### [facility] [address] [place] [address] Dr. Steve Valentin MONO # 0.6 103/ul Normal 0.3-0.8 [facility] [place] [facility] Comment on above: Performed By: #### C BC #### [facility] [address] [place] [address] Dr. Steve Valentin Monocytes/100 WBC (Bld) 10.0 % Normal 1.7-12.0 [facility] Comment on above: Performed By: #### C BC #### [facility] [address] [place] [address] Dr. Steve Valentin NEUT # 3.9 103/ul Normal 1.4-6.5 [facility] [place] [facility] Comment on above: Performed By: #### C BC #### [facility] [address] [place] [address] Dr. Steve Valentin Neutrophils/100 WBC (Bld) 67.7 % Normal 43.0-75.0 [facility] [place] [facility] Comment on above: Performed By: #### C BC #### [facility] [address] [place] [address] Dr. Steve Valentin Platelet mean volume (Bld) [Entitic vol] 10.0 fL Normal 9.5-13.[address] [facility] Comment on above: Performed By: #### C BC #### [facility] [address] [place] [address] Dr. Steve Valentin PLT 200 103/ul Normal 150-[address] [facility] Comment on above: Performed By: #### C BC #### [facility] [address] [place] [address] Dr. Steve Valentin RBC 4.67 106/ul Normal 4.20-5.[address] [facility] Comment on above: Performed By: #### C BC #### [facility] [address] [place] [address] Dr. Steve Valentin WBC 5.7 103/ul Normal 4.0-11.[address] [facility] Comment on above: Performed By: #### C BC #### [facility] [address] [place] [address] ABD/PELV W CONon [...] [place] Date: 2021-12-30 08:[address] [facility]on SARS-CoV-2 (COVID-19) RNA RADHA+probe Ql (Unsp spec) Not detected Normal NOT DETECTED [facility] Comment on above: Result Comment: When [...] for this test is supported by the Translation Director of Health and Human Service's declaration that [...] used). Performed By: #### C VDTBH #### [facility] [address] [place] [address] Dr. Steve Valentin DIRECT COOMBSon 12-30-2021 DIRECT AMARJIT Negative Normal [facility] Comment on above: Performed By: #### C MP, HSTROPN #### [facility] [address] [address] [address] Steve Valentin LACTATE/LACTIC ACIDon 2021 Lactate [Moles/Vol] 1.2 mmol/L Normal 0.4-1.9 [facility] Comment on above: Performed By: #### L ACT #### [facility] [address] [address] [address] Steve Valentin PROF 14(COMP METB)on 022 Albumin [Mass/Vol] 3.4 g/dL Normal 3.4-5.0 [facility] Comment on above: Performed By: #### C MP, HSTROPN #### [facility] [address] [address] [address] Steve Valentin Albumin/Globulin [Mass ratio] 1.1 {ratio} Normal [facility] [place] [facility] Comment on above: Performed By: #### C MP, HSTROPN #### [facility] [address] [address] [address] Steve Valentin ALP [Catalytic activity/Vol] 66 U/L Normal 46-116 [facility] [place] [facility] Comment on above: Performed By: #### C MP, HSTROPN #### [facility] [address] [address] [address] Steve Valentin ALT [Catalytic activity/Vol] 18 U/L Normal 14-59 [facility] [place] [facility] Comment on above: Performed By: #### C MP, HSTROPN #### [facility] [address] [address] [address] Steve Valentin Anion gap [Moles/Vol] 9.1 mmol/L Normal [facility] [place] [facility] Comment on above: Performed By: #### C MP, HSTROPN #### [facility] [address] [address] [address] Steve Valentin AST [Catalytic activity/Vol] 14 U/L Critically low 15-37 [facility] [place] [facility] Comment on above: Performed By: #### C MP, HSTROPN #### [facility] [address] [address] [address] Steve Valentin Bilirubin [Mass/Vol] 0.3 mg/dL Normal 0.2-1.0 [facility] [place] [facility] Comment on above: Performed By: #### C MP, HSTROPN #### [facility] [address] [address] [address] Steve Valentin Calcium [Mass/Vol] 9.2 mg/dL Normal 8.5-10.1 [facility] Comment on above: Performed By: #### C MP, HSTROPN #### [facility] [address] [place] [address] Dr. Steve Valentin Chloride [Moles/Vol] 104 mmol/L Normal 98-107 [facility] [place] [facility] Comment on above: Performed By: #### C MP, HSTROPN #### [facility] [address] [place] [address] Dr. Steve Valentin CO2 [Moles/Vol] 25.5 mmol/L Normal 21.0-32.0 [facility] Comment on above: Performed By: #### C MP, HSTROPN #### [facility] [address] [place] [address] Dr. Steve Valentin Creatinine [Mass/Vol] 0.94 mg/dL Normal 0.55-1.02 [facility] [place] [facility] Comment on above: Performed By: #### C MP, HSTROPN #### [facility] [address] [place] [address] Dr. Steve Valentin EGFR-AF MALAGASY >60 Normal >=60 [facility] Comment on above: Performed By: #### C MP, HSTROPN #### [facility] [address] [place] [address] Dr. Steve Valentin EGFR-NON AF MALAGASY >60 Normal >=60 [facility] [place] [facility] Comment on above: Performed By: #### C MP, HSTROPN #### [facility] [address] [place] [address] Dr. Steve Valentin Globulin (S) [Mass/Vol] 3.1 g/dL Normal [facility] Comment on above: Performed By: #### C MP, HSTROPN #### [facility] [address] [place] [address] Dr. Steve Valentin Glucose [Mass/Vol] 98 mg/dL Normal 74-106 [facility] Comment on above: Performed By: #### C MP, HSTROPN #### [facility] [address] [place] [address] Dr. Steve Valentin Potassium [Moles/Vol] 3.6 mmol/L Normal 3.5-5.1 [facility] [place] [facility] Comment on above: Performed By: #### C MP, HSTROPN #### [facility] [address] [address] [address] Steve Valentin Protein [Mass/Vol] 6.5 g/dL Normal 6.4-8.2 [facility] Comment on above: Performed By: #### C TABBY, HSTROPN #### [facility] [address] [place] [address] Dr. Steve Valentin Sodium [Moles/Vol] 135 mmol/L Critically low 136-145 [facility] Comment on above: Performed By: #### C MP, HSTROPN #### [facility] [address] [place] [address] Dr. Steve Valentin Urea nitrogen [Mass/Vol] 11.0 mg/dL Normal 7.0-18.0 [facility] [place] [facility] Comment on above: Performed By: #### C TABBY, HSTROPN #### [facility] [address] [place] [address] Dr. Steve Valentin Urea nitrogen/Creatinine [Mass ratio] 11.7 mg/mg Normal [facility] [place] [facility] Comment on above: Performed By: #### C MP, HSTROPN #### [facility] [address] [place] [address] Dr. Steve Valentin TROPONIN, HIGH SENSITIVITYon 12-30-2021 HSTROP 8.6 pg/mL Normal 4.0-51.3 [facility] [place] [facility] Comment on above: Result Comment: CUT- OFF POINTS HAVE BEEN ESTABLISHED BASED ON THE FOURTH UNIVERSAL DEFINITIONS OF MYOCARDIAL INFARCTION. THE UPPER REFERENCE LIMIT (URL) OF TROPONIN, DEFINED THE 99TH PERCENTILE OF cTnI DISTRIBUTION IN A REFERENCE POPULATION, HAS BEEN CONFIRMED THE DECISION THRESHOLD FOR SC DIAGNOSIS. Performed By: #### C MP, HSTROPN #### [facility] [address] [place], [place] [address] Dr. Steve Valentin TYPE AND SCREENon 12-30-2021 TYPE AND SCREEN Positive Normal [facility] Comment on above: Performed By: #### T NS #### [facility] [address] [place], [place] [address] Dr. Steve Valentin XR CERVICAL SPINE (2-3 [...] Yaritza Pinedo MD 01/20/20 Final result Normal [facility] Multilevel degenerative changes [place], [place] EXAMINATION: XRAY VIEWS OF THE CERVICAL [...] dislocation or significant prevertebral soft tissue swelling [place], [place] [employer], [employer] Incoming Radiant Results From [email or web address] - 01/20/2020 11:34 AM EDT EXAMINATION: XRAY [...] soft tissue swelling IMPRESSION: Multilevel degenerative changes [place], [place] XR LUMBAR SPINE (2-3 VIEWS)o n [...] Mitesh Ho MD 01/20/20 Final result Normal [facility] No acute abnormality lumbosacral spine. Degenerative findings most severe at L5-S1, with evidence DDD. [place], [place] EXAMINATION: THREE XRAY VIEWS OF THE [...] Large amount of retained stool right colon. [place], [place] [employer], [employer] Incoming Radiant Results From [employer] - 01/20/2020 12:11 PM EDT EXAMINATION: THREE [...] most severe at L5-S1, with evidence DDD. [place], [place] Hematologyon 01-25-2018 Basophils Auto #/vol (Bld) 0.7 % Invalid Interpretation Code [facility] Basophils/100 WBC Auto (Bld) 0.0 K/uL Invalid Interpretation Code 0.0-0.1 [facility] Eosinophils/100 WBC Auto (Bld) 3.2 % Invalid Interpretation Code [facility] Erythrocyte distribution width Auto Ratio (RBC) 14.2 % Invalid Interpretation Code 10.8-14.8 [facility] Hematocrit Auto Volume Fraction (Bld) 34.70 % Invalid Interpretation Code 36.0-48.0 [facility] Hemoglobin S Solubility test Ql (Bld) 11.7 Invalid Interpretation Code 12.0-16.0 [facility] Lymphocytes/100 WBC Auto (Bld) 43.3 % Invalid Interpretation Code [facility] MCH Auto Entitic mass (RBC) 27.1 pg Invalid Interpretation Code 27.0-34.0 [facility] MCHC Auto mass conc (RBC) 33.7 g/dL Invalid Interpretation Code 31.0-36.0 [facility] MCV Auto Entitic volume (RBC) 80.5 fL Invalid Interpretation Code 80.-100. [facility] Monocytes/100 WBC Auto (Bld) 6.5 % Invalid Interpretation Code [facility] Neutrophils/100 WBC Auto (Bld) 46.1 % Invalid Interpretation Code [facility] Nucleated RBC/100 WBC Ratio (Bld) 0.1 10*3/uL Invalid Interpretation Code 0.1-0.4 [facility] Nucleated RBC/100 WBC Ratio (Bld) 1.9 10*3/uL Invalid Interpretation Code 0.8-5.2 [facility] Nucleated RBC/100 WBC Ratio (Bld) 0.3 10*3/uL Invalid Interpretation Code 0.1-0.9 [facility] Nucleated RBC/100 WBC Ratio (Bld) 2.0 10*3/uL Invalid Interpretation Code 1.3-9.1 [facility] RBC Auto #/vol (Bld) 4.310 10*6/uL Invalid Interpretation Code 4.00-5.50 [facility] Metabolic Panelon 01-25-2018 Albumin mass conc 4.10 g/dL Invalid Interpretation Code 3.5-5.2 [facility] ALP enzyme act/vol 50 U/L Invalid Interpretation Code 30-111 [facility] ALT enzyme act/vol 14 U/L Invalid Interpretation Code 5-40 [facility] Anion gap 3 molar conc 12 mmol/L Invalid Interpretation Code 10-19 [facility] AST enzyme act/vol 13 U/L Invalid Interpretation Code 9-40 [facility] Calcium mass conc 9.90 mg/dL Invalid Interpretation Code 8.5-10.5 [facility] Chloride molar conc 103 mmol/L Invalid Interpretation Code 95-107 [facility] CO2 molar conc 28 mmol/L Invalid Interpretation Code 19-31 [facility] Creatinine mass conc 1.0 mg/dL Invalid Interpretation Code 0.6-1.3 [facility] Glucose mass conc 89 mg/dL Invalid Interpretation Code 70-99 [facility] Potassium molar conc 4.30 mmol/L Invalid Interpretation Code 3.5-5.4 [facility] Protein mass conc 6.0 g/dL Invalid Interpretation Code 6.1-8.3 [facility] Protein mass conc 0.59 g/dL Invalid Interpretation Code <0.5 [facility] Sodium molar conc 143 mmol/L Invalid Interpretation Code 135-146 [facility] Urea nitrogen mass conc 14.0 mg/dL Invalid Interpretation Code 8-23 [facility] Otheron 01-25-2018 Bilirubin Ql (U) 0.2 Invalid Interpretation Code <1.3 [facility] WBC LM Ql (Sput) 4.4 Invalid Interpretation Code 3.7-10.8 [facility] 74.5 Invalid Interpretation Code >59 [facility] 237 Invalid Interpretation Code 150.-450. [facility] 15 Invalid Interpretation Code 0-30 [facility] 64.3 Invalid Interpretation Code >59 [facility] Thyroidon 01-25-2018 T4 free mass conc 1.140 ng/dL Invalid Interpretation Code 0.80-1.90 [facility] Thyrotropin Qn 1.750 uIU/mL Invalid Interpretation Code 0.400-4.10 0 [facility] Progress Noteon 10-23-2017 HIM IP Note OR Dumbwaiter Operator Normal [facility] HIM IP Note OR Dumbwaiter Operator Normal [facility] Otheron 09-20-2017 3 Invalid Interpretation Code [facility] 3 Invalid Interpretation Code [facility] Cardiacon 09-14-2017 Cholesterol 220 mg/dL Invalid Interpretation Code <200 [facility] HDL Cholesterol 77.0 mg/dL Invalid Interpretation Code >39 [facility] Triglyceride 113.0 mg/dL Invalid Interpretation Code <150 [facility] Hematologyon 09-14-2017 Basophils Auto #/vol (Bld) 1.0 % Invalid Interpretation Code [facility] Basophils/100 WBC Auto (Bld) 0.1 K/uL Invalid Interpretation Code 0.0-0.1 [facility] Eosinophils/100 leukocytes 2.9 % Invalid Interpretation Code [facility] Erythrocyte distribution width Auto Ratio (RBC) 14.1 % Invalid Interpretation Code 10.8-14.8 [facility] Erythrocytes (RBC) 4.230 10*6/uL Invalid Interpretation Code 4.00-5.50 [facility] Hematocrit (HCT) 37.0 % Invalid Interpretation Code 36.0-48.0 [facility] Hemoglobin S presence 11.7 Invalid Interpretation Code 12.0-16.0 [facility] Lipoprotein a mass conc 0.2 10*3/uL Invalid Interpretation Code 0.1-0.4 [facility] Lipoprotein a mass conc 2.0 10*3/uL Invalid Interpretation Code 0.8-5.2 [facility] Lipoprotein a mass conc 0.5 10*3/uL Invalid Interpretation Code 0.1-0.9 [facility] Lipoprotein a mass conc 2.6 10*3/uL Invalid Interpretation Code 1.3-9.1 [facility] Lymphocytes/100 leukocytes 37.6 % Invalid Interpretation Code [facility] MCH 27.7 pg Invalid Interpretation Code 27.0-34.0 [facility] MCHC mass conc (RBC) 31.6 g/dL Invalid Interpretation Code 31.0-36.0 [facility] MCV 87.5 fL Invalid Interpretation Code 80.-100. [facility] Monocytes/100 leukocytes 8.8 % Invalid Interpretation Code [facility] Neutrophils/100 leukocytes 49.5 % Invalid Interpretation Code [facility] WBC (Leukocytes) 5.2 10*3/uL Invalid Interpretation Code 3.7-10.8 [facility] Otheron 09-14-2017 Cholesterol crystals Infrared spectroscopy Ql (Stone) 220 mg/dL Invalid Interpretation Code <200 [facility] Cholesterol to HDL Ratio 2.9 {ratio} Invalid Interpretation Code <5 [facility] LDL to HDL Ratio 1.6 Invalid Interpretation Code <3.5 [facility] [employer]circle Lipoprotein.beta/Lipopro tein.alpha mass ratio 1.6 Invalid Interpretation Code <3.5 [facility] PreB-LP SerPl-mCnc 23.0 mg/dL Invalid Interpretation Code <30 [facility] PreB-LP SerPl-mCnc 120.0 mg/dL Invalid Interpretation Code <130 [facility] WBC LM Ql (Sput) 5.2 Invalid Interpretation Code 3.7-10.8 [facility] [employer] 298 Invalid Interpretation Code 150.-450. [facility] Thyroidon 09-14-2017 Thyroid stimulating hormone (TSH) 2.270 uIU/mL Invalid Interpretation Code 0.40-4.10 [facility] Thyroxine (T4) free 0.990 ng/dL Invalid Interpretation Code 0.80-1.90 [facility] Vital Signs Date Time Vital Sign Value Performing Clinician Ni barnard 01-31-2024 14:17-0400 Body mass index (BMI) [Ratio] 62.69 kg/m2 Erica Siddiquitrick MEDICAL PRACTICE ASSISTANT Work Phone: [facility] 01-31-2024 14:17-0400 Body temperature 97.2 [degF] Erica Siddiquitrick MEDICAL PRACTICE ASSISTANT Work Phone: [facility] 01-31-2024 14:17-0400 Body weight 145.6 kg Erica Siddiquitrick MEDICAL PRACTICE ASSISTANT Work Phone: [facility] 01-31-2024 14:17-0400 Diastolic blood pressure 80 mm[Hg] Erica Menonpatrick MEDICAL PRACTICE ASSISTANT Work Phone: [facility] 01-31-2024 14:17-0400 Heart rate 57 /min Erica Siddiquitrick MEDICAL PRACTICE ASSISTANT Work Phone: [facility] 01-31-2024 14:17-0400 SaO2% (BldA) [Mass fraction] 94 % Erica Siddiquitrick MEDICAL PRACTICE ASSISTANT Work Phone: [facility] 01-31-2024 14:17-0400 Systolic blood pressure 152 mm[Hg] Erica Menonpatrick MEDICAL PRACTICE ASSISTANT Work Phone: [facility] 01-15-2024 14:38-0400 Diastolic blood pressure 74 mm[Hg] Hanane Courtneyasi ELECTRONIC INDUCTION HARDENER-COLD PATCHER Work Phone: [facility] 01-15-2024 14:38-0400 Heart rate 68 /min Hanane Valdezasi ELECTRONIC INDUCTION HARDENER-COLD PATCHER Work Phone: [facility] 01-15-2024 14:38-0400 Systolic blood pressure 130 mm[Hg] Hanane BARRERA Work Phone: [facility] [employer] [facility] 01-15-2024 14:36-0400 Body mass index (BMI) [Ratio] 64.25 kg/m2 Hanane BARRERA Work Phone: [facility] [employer] [facility] 01-15-2024 14:36-0400 Body weight 149.23 kg Hanane BARRERA Work Phone: [facility] [employer] [facility] 01-15-2024 14:36-0400 SaO2% (BldA) [Mass fraction] 96 % Hanane BARRERA Work Phone: [facility] [employer] [facility] 11-29-2023 08:53-0400 Body height 152.4 cm Pfo 1 [facility] [employer] [facility] 11-29-2023 08:53-0400 Body mass index (BMI) [Ratio] 65.27 kg/m2 Pfo 1 [facility] [employer] [facility] 11-29-2023 08:53-0400 Body temperature 97.39 [degF] Pfo 1 [facility] 11-29-2023 08:53-0400 Body weight 151.59 kg Pfo 1 [facility] [employer] [facility] 11-29-2023 08:53-0400 Diastolic blood pressure 73 mm[Hg] Pfo 1 [facility] [employer] [facility] 11-29-2023 08:53-0400 Heart rate 73 /min Pfo 1 [facility] [employer] [facility] 11-29-2023 08:53-0400 Respiratory rate 21 /min Pfo 1 [facility] 11-29-2023 08:53-0400 SaO2% (BldA) [Mass fraction] 99 % Pfo 1 [facility] [employer] [facility] 11-29-2023 08:53-0400 Systolic blood pressure 142 mm[Hg] Pfo 1 [facility] 10-18-2023 21:58-0400 Heart rate 75 /min Isma Hayward MD Work Phone: [facility] [employer] 10-18-2023 21:58-0400 Respiratory rate 18 /min Isma Hayward MD Work Phone: [facility] 10-18-2023 21:48-0400 SaO2% (BldA) [Mass fraction] 94 % Isma Hayward MD Work Phone: [facility] 10-18-2023 19:27-0400 Body temperature 98.1 [degF] Isma Hayward MD Work Phone: [facility] 10-18-2023 19:27-0400 Diastolic blood pressure 77 mm[Hg] Isma Hayward MD Work Phone: [facility] 10-18-2023 19:27-0400 Systolic blood pressure 137 mm[Hg] Isma Hayward MD Work Phone: [facility] 10-18-2023 03:45-0400 Body mass index (BMI) [Ratio] 64.86 kg/m2 Isma Hayward MD Work Phone: [facility] 10-18-2023 03:45-0400 Body weight 150.64 kg Isma Hayward MD Work Phone: [facility] 10-16-2023 12:10-0400 Body height 152.4 cm Isma Hayward MD Work Phone: [facility] 02-13-2018 13:08-0400 BMI (Body Mass Index) 56.47 kg/m2 [facility] 02-13-2018 13:08-0400 Body Temperature 98 [degF] [facility] 02-13-2018 13:08-0400 BP Diastolic 80 mm[Hg] [facility] 02-13-2018 13:08-0400 BP Systolic 124 mm[Hg] [facility] 02-13-2018 13:08-0400 BSA (Body Surface Area) 2.39 m2 Leda Agrawal [facility] 02-13-2018 13:08-0400 Height 153.67 cm [facility] 02-13-2018 13:08-0400 Pulse (Heart Rate) 74 /min Leda Tanja [facility] 02-13-2018 13:08-0400 Pulse Oximetry 97 % [facility] 02-13-2018 13:08-0400 Respiratory Rate 20 /min [facility] 02-13-2018 13:08-0400 Weight 133.36 kg [facility] 02-13-2018 10:08-0400 Body height 153.67 cm Leda Agrawal CNP Work Phone: [facility] Work Phone: 02-13-2018 10:08-0400 Body mass index (BMI) [Ratio] 56.5 kg/m2 Leda Agrawal CNP Work Phone: [facility] Work Phone: 02-13-2018 10:08-0400 Body surface area Derived from formula 2.21 m2 Leda Agrawal CNP Work Phone: [facility] Work Phone: 02-13-2018 10:08-0400 Body temperature 98 [degF] Leda Agrawal CNP Work Phone: [facility] Work Phone: 02-13-2018 10:08-0400 Body weight 133.36 kg Leda Agrawal CNP Work Phone: [facility] Work Phone: 02-13-2018 10:08-0400 Diastolic blood pressure 80 mm[Hg] Leda Agrawal CNP Work Phone: [facility] Work Phone: 02-13-2018 10:08-0400 Heart rate 74 /min eLda Agrawal CNP Work Phone: [facility] Work Phone: 02-13-2018 10:08-0400 Respiratory rate 20 /min Leda Agrawal CNP Work Phone: [facility] Work Phone: 02-13-2018 10:08-0400 Systolic blood pressure 124 mm[Hg] Leda Agrawal CNP Work Phone: [facility] Work Phone: 01-25-2018 12:47-0400 BMI (Body Mass Index) 56.47 kg/m2 [facility] 01-25-2018 12:47-0400 Body Temperature 98.4 [degF] [facility] 01-25-2018 12:47-0400 BP Diastolic 82 mm[Hg] [facility] 01-25-2018 12:47-0400 BP Systolic 122 mm[Hg] [facility] 01-25-2018 12:47-0400 BSA (Body Surface Area) 2.39 m2 [facility] 01-25-2018 12:47-0400 Height 153.67 cm [facility] 01-25-2018 12:47-0400 Pulse (Heart Rate) 73 /min [facility] 01-25-2018 12:47-0400 Pulse Oximetry 96 % [facility] 01-25-2018 12:47-0400 Respiratory Rate 18 /min [facility] 01-25-2018 12:47-0400 Weight 133.36 kg Leda Agrawal [facility] 01-25-2018 09:47-0400 Body height 153.67 cm Leda Agrawal CNP Work Phone: [facility] Work Phone: 01-25-2018 09:47-0400 Body mass index (BMI) [Ratio] 56.5 kg/m2 Leda Agrawal CNP Work Phone: [facility] Work Phone: 01-25-2018 09:47-0400 Body surface area Derived from formula 2.21 m2 Leda Agrawal CNP Work Phone: [facility] Work Phone: 01-25-2018 09:47-0400 Body temperature 98.4 [degF] Leda Agrawal CNP Work Phone: [facility] Work Phone: 01-25-2018 09:47-0400 Body weight 133.36 kg Leda Agrawal CNP Work Phone: [facility] Work Phone: 01-25-2018 09:47-0400 Diastolic blood pressure 82 mm[Hg] Leda Agrawal CNP Work Phone: [facility] Work Phone: 01-25-2018 09:47-0400 Heart rate 73 /min Leda Agrawal CNP Work Phone: [facility] Work Phone: 01-25-2018 09:47-0400 Respiratory rate 18 /min Leda Agrawal CNP Work Phone: [facility] Work Phone: 01-25-2018 09:47-0400 Systolic blood pressure 122 mm[Hg] Leda Agrawal CNP Work Phone: [facility] Work Phone: 11-14-2017 18:20-0400 BMI (Body Mass Index) 56.47 kg/m2 [facility] 11-14-2017 18:20-0400 Body Temperature 97.4 [degF] [facility] 11-14-2017 18:20-0400 BP Diastolic 80 mm[Hg] [facility] 11-14-2017 18:20-0400 BP Systolic 130 mm[Hg] [facility] 11-14-2017 18:20-0400 BSA (Body Surface Area) 2.39 m2 [facility] 11-14-2017 18:20-0400 Height 153.67 cm [facility] 11-14-2017 18:20-0400 Pulse (Heart Rate) 96 /min [facility] 11-14-2017 18:20-0400 Pulse Oximetry 95 % [facility] 11-14-2017 18:20-0400 Respiratory Rate 18 /min [facility] 11-14-2017 18:20-0400 Weight 133.36 kg [facility] 11-14-2017 15:20-0400 Body height 153.67 cm [facility] COLD PATCHER Work Phone: [facility] Work Phone: 11-14-2017 15:20-0400 Body mass index (BMI) [Ratio] 56.5 kg/m2 [facility] COLD PATCHER Work Phone: [facility] Work Phone: 11-14-2017 15:20-0400 Body surface area Derived from formula 2.21 m2 Leda Agrawal CNP Work Phone: [facility] Work Phone: 11-14-2017 15:20-0400 Body temperature 97.4 [degF] Leda Agrawal CNP Work Phone: [facility] Work Phone: 11-14-2017 15:20-0400 Body weight 133.36 kg Leda Agrawal CNP Work Phone: [facility] Work Phone: 11-14-2017 15:20-0400 Diastolic blood pressure 80 mm[Hg] Leda Agrawal CNP Work Phone: [facility] Work Phone: 11-14-2017 15:20-0400 Heart rate 96 /min Leda Agrawal CNP Work Phone: [facility] Work Phone: 11-14-2017 15:20-0400 Respiratory rate 18 /min Leda Agrawal CNP Work Phone: [facility] Work Phone: 11-14-2017 15:20-0400 Systolic blood pressure 130 mm[Hg] Leda Agrawal CNP Work Phone: [facility] Work Phone: 10-12-2017 11:11-0400 BMI (Body Mass Index) 57.12 kg/m2 Leda Agrawal [facility] 10-12-2017 11:11-0400 Body Temperature 98.8 [degF] Leda Agrawal [facility] 10-12-2017 11:11-0400 BP Diastolic 83 mm[Hg] Leda Agrawal [facility] 10-12-2017 11:11-0400 BP Systolic 122 mm[Hg] Leda Agrawal [facility] 10-12-2017 11:11-0400 BSA (Body Surface Area) 2.4 m2 [facility] 10-12-2017 11:11-0400 Height 153.67 cm [facility] 10-12-2017 11:11-0400 Pulse (Heart Rate) 79 /min [facility] 10-12-2017 11:11-0400 Pulse Oximetry 99 % [facility] 10-12-2017 11:11-0400 Respiratory Rate 18 /min [facility] 10-12-2017 11:11-0400 Weight 134.89 kg [facility] 10-12-2017 10:11-0400 BMI (Body Mass Index) 57.12 kg/m2 [facility] 10-12-2017 10:11-0400 Body Temperature 98.8 [degF] [facility] 10-12-2017 10:11-0400 BP Diastolic 83 mm[Hg] [facility] 10-12-2017 10:11-0400 BP Systolic 122 mm[Hg] [facility] 10-12-2017 10:11-0400 BSA (Body Surface Area) 2.4 m2 [facility] 10-12-2017 10:11-0400 Height 153.67 cm [facility] 10-12-2017 10:11-0400 Pulse (Heart Rate) 79 /min [facility] 10-12-2017 10:11-0400 Pulse Oximetry 99 % Leda Agrawal [facility] 10-12-2017 10:11-0400 Respiratory Rate 18 /min Leda Agrawal [facility] 10-12-2017 10:11-0400 Weight 134.89 kg Leda Agrawal [facility] 10-12-2017 08:11-0400 Body height 153.67 cm Leda Agrawal CNP Work Phone: [facility] Work Phone: 10-12-2017 08:11-0400 Body mass index (BMI) [Ratio] 57 kg/m2 Leda Agrawal CNP Work Phone: [facility] Work Phone: 10-12-2017 08:11-0400 Body surface area Derived from formula 2.22 m2 Leda Agrawal CNP Work Phone: [facility] Work Phone: 10-12-2017 08:11-0400 Body temperature 98.8 [degF] Leda Agrawal CNP Work Phone: [facility] Work Phone: 10-12-2017 08:11-0400 Body weight 134.72 kg Leda Agrawal CNP Work Phone: [facility] Work Phone: 10-12-2017 08:11-0400 Diastolic blood pressure 83 mm[Hg] Leda Agrawal CNP Work Phone: [facility] Work Phone: 10-12-2017 08:11-0400 Heart rate 79 /min Leda Agrawal CNP Work Phone: [facility] Work Phone: 10-12-2017 08:11-0400 Respiratory rate 18 /min Leda Agrawal CNP Work Phone: [facility] Work Phone: 10-12-2017 08:11-0400 Systolic blood pressure 122 mm[Hg] Leda Agrawal [facility] Work Phone: [facility] Work Phone: 09-20-2017 17:04-0400 BP Diastolic 80 mm[Hg] [facility] 09-20-2017 17:04-0400 BP Systolic 136 mm[Hg] [facility] 09-20-2017 16:19-0400 BMI (Body Mass Index) 59.21 kg/m2 [facility] 09-20-2017 16:19-0400 Body Temperature 97.1 [degF] [facility] 09-20-2017 16:19-0400 BP Diastolic 80 mm[Hg] [facility] 09-20-2017 16:19-0400 BP Systolic 142 mm[Hg] [facility] 09-20-2017 16:19-0400 BSA (Body Surface Area) 2.44 m2 [facility] 09-20-2017 16:19-0400 Height 153.67 cm [facility] 09-20-2017 16:19-0400 Pulse (Heart Rate) 94 /min [facility] 09-20-2017 16:19-0400 Pulse Oximetry 96 % [facility] 09-20-2017 16:19-0400 Respiratory Rate 18 /min [facility] 09-20-2017 16:19-0400 Weight 139.82 kg [facility] 09-20-2017 16:04-0400 BP Diastolic 80 mm[Hg] [facility] 09-20-2017 16:04-0400 BP Systolic 136 mm[Hg] [facility] 09-20-2017 15:19-0400 BMI (Body Mass Index) 59.21 kg/m2 [facility] 09-20-2017 15:19-0400 Body Temperature 97.1 [degF] [facility] 09-20-2017 15:19-0400 BP Diastolic 80 mm[Hg] [facility] 09-20-2017 15:19-0400 BP Systolic 142 mm[Hg] [facility] 09-20-2017 15:19-0400 BSA (Body Surface Area) 2.44 m2 [facility] 09-20-2017 15:19-0400 Height 153.67 cm [facility] 09-20-2017 15:19-0400 Pulse (Heart Rate) 94 /min [facility] 09-20-2017 15:19-0400 Pulse Oximetry 96 % [facility] 09-20-2017 15:19-0400 Respiratory Rate 18 /min [facility] 09-20-2017 15:19-0400 Weight 139.82 kg [facility] 09-20-2017 14:04-0400 Diastolic blood pressure 80 mm[Hg] [facility] Work Phone: [facility] Work Phone: 09-20-2017 14:04-0400 Systolic blood pressure 136 mm[Hg] Leda Agrawal CNP Work Phone: [facility] Work Phone: 09-20-2017 13:19-0400 Body height 153.67 cm Leda Agrawal CNP Work Phone: [facility] Work Phone: 09-20-2017 13:19-0400 Body mass index (BMI) [Ratio] 59.2 kg/m2 Leda Agrawal CNP Work Phone: [facility] Work Phone: 09-20-2017 13:19-0400 Body surface area Derived from formula 2.26 m2 Leda Agrawal CNP Work Phone: [facility] Work Phone: 09-20-2017 13:19-0400 Body temperature 97.1 [degF] Leda Agrawal CNP Work Phone: [facility] Work Phone: 09-20-2017 13:19-0400 Body weight 139.71 kg Leda Agrawal CNP Work Phone: [facility] Work Phone: 09-20-2017 13:19-0400 Diastolic blood pressure 80 mm[Hg] Leda Agrawal CNP Work Phone: [facility] Work Phone: 09-20-2017 13:19-0400 Heart rate 94 /min Leda Agrawal CNP Work Phone: [facility] Work Phone: 09-20-2017 13:19-0400 Respiratory rate 18 /min Leda Agrawal CNP Work Phone: [facility] Work Phone: 09-20-2017 13:19-0400 Systolic blood pressure 142 mm[Hg] Leda Agrawal CNP Work Phone: [facility] Work Phone: 09-14-2017 12:35-0400 BMI (Body Mass Index) 59.76 kg/m2 [facility] 09-14-2017 12:35-0400 Body Temperature 97 [degF] [facility] 09-14-2017 12:35-0400 BP Diastolic 72 mm[Hg] [facility] 09-14-2017 12:35-0400 BP Systolic 122 mm[Hg] [facility] 09-14-2017 12:35-0400 BSA (Body Surface Area) 2.45 m2 [facility] 09-14-2017 12:35-0400 Height 153.67 cm [facility] 09-14-2017 12:35-0400 Pulse (Heart Rate) 71 /min [facility] 09-14-2017 12:35-0400 Pulse Oximetry 97 % [facility] 09-14-2017 12:35-0400 Respiratory Rate 18 /min [facility] 09-14-2017 12:35-0400 Weight 141.13 kg [facility] 09-14-2017 11:35-0400 BMI (Body Mass Index) 59.76 kg/m2 [facility] 09-14-2017 11:35-0400 Body Temperature 97 [degF] [facility] 09-14-2017 11:35-0400 BP Diastolic 72 mm[Hg] [facility] 09-14-2017 11:35-0400 BP Systolic 122 mm[Hg] Leda Tanja [facility] 09-14-2017 11:35-0400 BSA (Body Surface Area) 2.45 m2 Leda Tanja [facility] 09-14-2017 11:35-0400 Height 153.67 cm [facility] 09-14-2017 11:35-0400 Pulse (Heart Rate) 71 /min [facility] 09-14-2017 11:35-0400 Pulse Oximetry 97 % [facility] 09-14-2017 11:35-0400 Respiratory Rate 18 /min [facility] 09-14-2017 11:35-0400 [facility] 141.13 [facility] 09:35-0400 Body height 153.67 cm Leda Agrawal [facility] Work Phone: [facility] Work Phone: 09-14-2017 09:35-0400 Body mass index (BMI) [Ratio] 59.7 kg/m2 Leda Agrawal CNP Work Phone: [facility] Work Phone: 09-14-2017 09:35-0400 Body surface area Derived from formula 2.27 m2 Leda Agrawal CNP Work Phone: [facility] Work Phone: 09-14-2017 09:35-0400 Body temperature 97 [degF] Leda Agrawal COLD PATCHER Work Phone: [facility] Work Phone: 09-14-2017 09:35-0400 Body weight 141.07 kg Leda Agrawal CNP Work Phone: [facility] Work Phone: 09-14-2017 09:35-0400 Diastolic blood pressure 72 mm[Hg] Leda Agrawal COLD PATCHER Work Phone: [facility] Work Phone: 09-14-2017 09:35-0400 Heart rate 71 /min Leda Agrawal COLD PATCHER Work Phone: [facility] Work Phone: 09-14-2017 09:35-0400 Respiratory rate 18 /min Leda Agrawal COLD PATCHER Work Phone: [facility] Work Phone: 09-14-2017 09:35-0400 Systolic blood pressure 122 mm[Hg] Leda Agrawal COLD PATCHER Work Phone: [facility] Work Phone: Encounters Encounter Date Encounter Type Care Provider Facility Start: 12-06-2024 ambulatory [facility] Start: 12-06-2024 End: 12-06-2024 ambulatory [facility] Start: 11-21-2024 End: 11-21-2024 ambulatory [facility] Start: 11-07-2024 End: 11-07-2024 ambulatory [facility] Start: 10-08-2024 End: 10-08-2024 ambulatory [facility] Start: 05-23-2024 End: 05-23-2024 ambulatory [facility] Start: 05-20-2024 End: 05-20-2024 ambulatory [facility] Start: 05-09-2024 End: 05-09-2024 ambulatory [facility] Start: 03-19-2024 End: 03-19-2024 Telephone encounter Keenan CHAMPION [facility] Start: 02-16-2024 End: 02-16-2024 Refill Janedebra Freemanelka ELECTRONIC INDUCTION HARDENER-COLD PATCHER Work Phone: [facility] GEN 6 Acute Start: 01-31-2024 End: 01-31-2024 Bamboo flowsheet Erica Pompa MEDICAL PRACTICE ASSISTANT Work Phone: [facility] Start: 01-31-2024 End: 01-31-2024 Bamboo flowsheet Erica Pompa MEDICAL PRACTICE ASSISTANT Work Phone: [facility] Start: 01-31-2024 End: 01-31-2024 Office outpatient visit 10 minutes Erica Siddiquitrick MEDICAL PRACTICE ASSISTANT Work Phone: [facility] Comment on above: Chronic obstructive pulmonary disease with acute exacerbation (CMS/HCC) (Primary Dx); Chronic rhinitis; Bipolar depression ([facility]); ADORE (obstructive sleep apnea); Pulmonary emphysema, unspecified emphysema type ([facility]/HCC) Start: 01-31-2024 End: 01-31-2024 Refill Janedebra Freemanelka ELECTRONIC INDUCTION HARDENER-COLD PATCHER Work Phone: [facility] GEN 6 Acute Start: 01-31-2024 End: 01-31-2024 ambulatory ERICA POMPA Not Available Start: 01-29-2024 End: 01-29-2024 Refill Erica Pompa MEDICAL PRACTICE ASSISTANT Work Phone: [facility] Comment on above: ARSH (generalized anx iety disorder) ([facility]/HCC) Start: 01-29-2024 End: 01-29-2024 Refill Jane L Veselka ELECTRONIC INDUCTION HARDENER-COLD PATCHER Work Phone: [facility] GEN 6 Acute Start: 01-22-2024 End: 01-22-2024 ambulatory [facility] Start: 01-15-2024 End: 01-15-2024 Office outpatient visit 40 minutes [facility] ELECTRONIC INDUCTION HARDENER-COLD PATCHER Work Phone: 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 Start: 01-02-2024 End: 01-02-2024 Orders Only Shazia La RN N [facility] Comment on above: 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 (Primary Dx) Start: 12-19-2023 End: 12-19-2023 [facility] Start: 11-29-2023 End: 11-29-2023 ambulatory [facility] Comment on above: 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 (Primary Dx) Start: 11-14-2023 End: 11-14-2023 Orders Only Shazia La RN N 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 Start: 11-07-2023 End: 11-07-2023 [facility] Comment on above: 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 (Primary Dx) Start: 11-02-2023 End: 11-02-2023 ambulatory [facility] Start: 11-02-2023 End: 11-02-2023 ambulatory SHAIKH JHONY Not Available Start: 10-20-2023 End: 10-25-2023 Evaluation and management of inpatient [facility] Start: 10-18-2023 End: 10-25-2023 Evaluation and management of inpatient NATASHA. [facility] Start: 10-14-2023 End: 10-19-2023 Emergency department patient visit ALEXIS Olguin [facility]EX[facility] Start: 10-14-2023 End: 10-18-2023 Evaluation and management of inpatient NOT IN SYSTEM [facility] Comment on above: ERIN (acute kidney in jury) ([facility]-HCC) (Primary Dx); Hypertensive urgency; Hypokalemia; Elevated brain natriuretic peptide (BNP) level Start: 04-26-2023 End: 04-26-2023 ambulatory LINARES JHONY Not Available Start: 04-15-2022 End: 04-17-2022 ambulatory QUYNH ARCHER Facility:[facility]1 Start: 02-08-2022 End: 02-09-2022 ambulatory NANCI BEEBE Facility:[facility] Start: 12-30-2021 End: 12-31-[address] VU RIVERA Facility:[facility]1 Start: 01-20-2020 End: 01-23-2020 Patient encounter procedure [facility] Start: 01-20-2020 End: 01-22-2020 Subsequent hospital visit by physician Roman Palacio Dr Room 4 [facility] Comment on above: Chronic bilateral lo w back pain without sciatica Chronic neck pain; Chronic bilateral low back pain without sciatica Start: 07-31-2018 Patient encounter procedure Heath Kirkpatrick Facility:[id number] Start: 07-20-2018 End: 07-20-2018 General Leda Agrawal CNP Work Phone: [facility] Work Phone: Start: 02-13-2018 End: 02-13-2018 Patient encounter procedure Leda Agrawal CNP Work Phone: [facility] Work Phone: Start: 02-13-2018 Office outpatient vi sit 15 minutes Leda Agrawal Other [facility] Start: 01-25-2018 End: 01-25-2018 Patient encounter procedure Leda Agrawal CNP Work Phone: [facility] Work Phone: Start: 01-25-2018 Office outpatient vi sit 15 minutes Leda Agrawal Other [facility] Start: 11-14-2017 Office outpatient vi sit 15 minutes Leda Agrawal Other [facility] Start: 11-14-2017 End: 11-14-2017 Patient encounter procedure Leda Agrawal COLD PATCHER Work Phone: [facility] Work Phone: Start: 10-12-2017 End: 10-12-2017 Patient encounter procedure Leda Agrawal COLD PATCHER Work Phone: [facility] Work Phone: Start: 10-12-2017 End: 10-12-2017 Office outpatient visit 15 minutes Leda Agrawal Other [facility] Start: 10-12-2017 Polysom 6/>yrs sleep 4/> addl nicky attnd [facility] Start: 10-12-2017 Polysom 6/>yrs sleep w[facility]cp[facility] 4/> [facility] Start: 09-20-2017 End: 09-20-2017 Office outpatient visit 15 minutes Leda Agrawal Other [facility] Start: 09-20-2017 End: 09-20-2017 Patient encounter procedure Leda Agrawal COLD PATCHER Work Phone: [facility] Work Phone: Start: 09-14-2017 End: 09-14-2017 Patient encounter procedure Leda Agrawal COLD PATCHER Work Phone: [facility] Work Phone: Start: 09-14-2017 Laboratory examinati on, unspecified Leda Agrawal [facility] Start: 09-14-2017 Colonoscopy w/biopsy single/multiple Leda Agrawal [facility] Start: 09-14-2017 Dxa bone density kourtney dy 1/> sites axial skel [facility] Start: 09-14-2017 End: 09-14-2017 Office outpatient new 45 minutes Leda Agrawal Other [facility] Procedures Date Procedure Procedure Detail Performing Clinician Start: 10-19-2023 Adult depression scr eening assessment Shazia La RN Start: 10-18-2023 POCT IONIZED CALCIUM Axel Jewell MD Work Phone: Start: 10-18-2023 Comprehensive metabo lic panel Kristina Travis ELECTRONIC INDUCTION HARDENER-[employer] Work Phone: Start: 10-17-2023 Potassium serum plas ma/whole blood Elva Man MD Work Phone: Start: 10-17-2023 Blood occult peroxid ase actv qual feces 1-3 spec Nataliia Cohen ELECTRONIC INDUCTION HARDENER-COLD PATCHER Work Phone: Start: 10-17-2023 Pulmonary ventilatio n & perfusion imaging Nataliia Cohen ELECTRONIC INDUCTION HARDENER-COLD PATCHER Work Phone: Start: 10-17-2023 End: 10-17-2023 Comprehensive metabolic panel Kristina Travis ELECTRONIC INDUCTION HARDENER-COLD PATCHER Work Phone: Start: 10-16-2023 Fibrin dgradj produc [...] wom-mode compl spec&colr d Antione D Krotzer ELECTRONIC INDUCTION HARDENER-COLD PATCHER Work Phone: Start: 10-16-2023 End: 10-16-2023 Potassium serum plasma/whole blood Dre Jewell MD Work Phone: Start: 10-16-2023 Us retroperitoneal r eal time w/image complete Fran Wild MD Work Phone: Start: 10-16-2023 End: 10-16-2023 Comprehensive metabolic panel Kristina Robles ELECTRONIC INDUCTION HARDENER-COLD PATCHER Work Phone: Start: 10-16-2023 CLINICAL PATHOLOGY Alhaji [...] Phone: Start: 10-15-2023 BIPAP/CPAP/AUTOPAP Antione Hernández Kulwinderdeirdre ELECTRONIC INDUCTION HARDENER-COLD PATCHER Work Phone: Start: 10-15-2023 Comprehensive metabo lic panel Kristina Robles ELECTRONIC INDUCTION HARDENER-COLD PATCHER Work Phone: Start: 10-14-2023 Radiologic exam ches [...] son RN Start: 02-25-2019 Mammography Erica henderson MEDICAL PRACTICE ASSISTANT Work Phone: Start: 08-10-2018 Follow-up visit Start: [...] 10-13-2029 Screening for malignant neoplasm of colon [facility] Start: 01-14-2025 Adult BMI Screening Adult BMI Screening [facility] Start: 11-28-2024 Adult BMI Screening Adult BMI Screening [facility] Start: 11-28-2024 Tobacco Screening Tobacco Screening [facility] Start: 10-24-2024 Adult BMI Screening Adult BMI Screening [facility] Start: 10-18-2024 Depression Screening Depression Screening [facility] Start: 10-18-2024 Tobacco Screening Tobacco Screening [facility] Start: 10-13-2024 Screening for malignant neoplasm of colon Colonoscopy [facility] Start: 03-25-2024 End: 03-25-2024 Patient encounter procedure 03/25/2024 10:30 AM EST Office Visit N [facility] [address] [place] [address] Fran Wild MD [address] [place] [address] [facility] Start: 02-06-2024 End: 02-06-2024 Patient encounter procedure 02/06/2024 1:30 PM EDT Office Visit [facility] [address] [place] [phone] Erica Pompa, MEDICAL PRACTICE ASSISTANT [address] [place] [phone] [facility] Start: 01-31-2024 End: 01-31-2024 Patient encounter procedure 01/31/2024 2:00 PM EDT Office Visit [facility] [address] [place] [phone] Erica Pompa, MEDICAL PRACTICE ASSISTANT [address] [place] [phone] Arrived [facility] Comment on above: Arrived Start: 01-31-2024 End: 01-30-2025 XR Chest 2 Views XR chest 2 views Imaging Routine Chronic obstructive pulmonary disease with acute exacerbation (CMS/HCC) Expected: 01/31/2024, Expires: 01/30/2025 [facility] Work Phone: Comment on above: Expected: 01/31/2024, Expires: Start: 01-22-2024 End: 01-14-2025 Basic metabolic 2000 panel - Serum or Plasma Basic Metabolic Panel Lab Routine 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 ([facility]) Expected: 01/22/2024 (Approximate), Expires: 01/14/2025 [facility] Work Phone: Comment on above: Expected: 01/22/2024 (Approximate), Expi res: 01/14/2025 Start: 12-24-2023 Influenza vaccination [facility] Start: 12-06-2023 End: 12-06-2023 ambulatory 12/06/2023 10:00 AM EDT Infusion Sylviajesika [facility] [address] [place] [address] Sylvia [facility]ayas [facility] Start: 01-30-2021 COVID-19 Vaccine (2 - Roxanne risk series) COVID-19 Vaccine (2 - Roxanne risk series) [facility] Start: 04-30-2020 End: 04-30-2020 Office Visit 04/30/2020 Office Visit Neurology Tim Sharma MD [address] [place] [address] [address] [place] [address] [facility] Start: 02-26-2020 Screening for malignant neoplasm of breast Mammogram [facility] Start: 12-24-2019 Influenza vaccination Flu vaccine (#1) [place], [place] Start: 08-31-2019 Screening for malignant neoplasm of lung Low dose CT lung screening [place], [place] Start: 02-13-2019 Creatinine measurement Creatinine monitoring [place], [place] Start: 11-30-2018 Potassium monitoring Potassium monitoring [place], [place] Start: 11-08-2018 Lipid panel Lipid screen [place], [place] Start: 08-02-2018 [facility] visit, estab pt Established Patient [facility] Work Phone: Start: 10-12-2017 Polysom 6/>yrs sleep 4/> addl nicky attnd Polysomnography with CPAP testing [facility] Start: 10-12-2017 Polysom 6/>yrs sleep w/cpap 4/> addl nicky attnd Polysomnography with CPAP testing [facility] Start: 09-14-2017 Dual energy X-ray photon absorptiometry DEXA scan for body composition study [facility] Start: 08-22-2016 Screening for malignant neoplasm of breast Breast cancer screen [place], [place] Start: 01-24-2016 Screening for malignant neoplasm of cervix Cervical cancer screen [place], [place] Start: 2014 Screening for malignant neoplasm of colon Colon cancer screen colonoscopy [place], [place] Start: 2014 Shingles Vaccine (1 of 2) Shingles Vaccine (1 of 2) [place], [place] Start: 1994 Screening for malignant neoplasm of cervix [facility] Start: 1985 Screening for malignant neoplasm of cervix Pap Smear [facility] Start: 08-31-1983 Administration of varicella zoster vaccine Zoster (Shingles) Vaccine (1 of 2) [facility] Start: 08-31-1983 DTaP,Tdap and Td Vaccines (1 - Tdap) DTaP,Tdap and Td Vaccines (1 - Tdap) [facility] Start: 08-31-1983 DTaP/Tdap/Td vaccine (1 - Tdap) DTaP/Tdap/Td vaccine (1 - Tdap) [place], [place] Start: 1982 Adult BMI Follow Up Plan Adult BMI Follow Up Plan [facility] Start: 08-31-1979 HIV screening HIV screen [place], [place] Start: 1970 Pneumococcal 0-64 years Vaccine (1 of 1 - PPSV23) Pneumococcal 0-64 years Vaccine (1 of 1 - PPSV23) [place], [place] Start: 1964 Hepatitis C screening Hepatitis C screen [place], [place] Start: 1964 Screening for malignant neoplasm of colon [facility] Start: 1964 Tobacco Counseling Tobacco Counseling [facility] Basement membrane Ig G Ab [Units/volume] in Serum Glomerular Basement Membrane IgG, Serum Lab Routine 10/18/2023 11:37 AM EDT [facility] Basic metabolic 2000 panel - Serum or Plasma Basic Metabolic Panel Lab Routine Lab max of 3 days, Daily, for lab use only until discontinued starting 10/16/2023 [employer] Comment on above: Lab max of 3 days, Daily, for lab use on ly until discontinued starting 10/16/2023 End: 01-01-2025 Basic metabolic 2000 panel - Serum or Plasma Basic Metabolic Panel Lab Routine 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 1 Occurrences starting 01/02/2024 until 01/01/2025 [facility] Comment on above: 1 Occurrences starting 01/02/2024 until 01/01/2025 BiPAP/CPAP/AutoPAP BiPAP/CPAP/Au toPAP Respiratory Care Routine Every 12 hour check until discontinued starting 10/15/2023, 1 completed [employer] Work Phone: Comment on above: Every 12 hour check until discontinued s tarting 10/15/2023, 1 completed CBC panel - Blood by Automated count CBC without diff Lab Routine Lab max of 3 days, Daily, for lab use only until discontinued starting 10/16/2023 [employer] 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 1 Occurrences starting 01/02/2024 until 01/01/2025 [employer] Comment on above: 1 Occurrences starting 01/02/2024 until 01/01/2025 CBC W Auto Different ial panel - Blood CBC auto differential Lab Routine Lab max of 3 days, Daily, for lab use only until discontinued starting 10/15/2023, 4 completed [employer] Comment on above: Lab max of 3 days, Daily, for lab use on ly until discontinued starting 10/15/2023, 4 completed Comprehensive metabo lic 2000 panel - Serum or Plasma Comprehensive metabolic panel Lab Routine Lab max of 3 days, Daily, for lab use only until discontinued starting 10/15/2023, 4 completed [employer] Comment on above: Lab max of 3 days, Daily, for lab use on ly until discontinued starting 10/15/2023, 4 completed End: 10-15-2023 Cryoglobulin W/ Identification [employer] Comment on above: Once for 1 Occurrences starting 10/15/19 until 10/15/2023 End: 10-18-2023 Glomerular Basement Membrane IgG, Serum Glomerular Basement Membrane IgG, Serum Lab Routine Once for 1 Occurrences starting 10/18/2023 until 10/18/2023 [employer] Work Phone: Comment on above: Once for 1 Occurrences starting 10/18/19 until 10/18/2023 Ionized calcium Ionized calcium Lab Routine Lab max of 3 days, Daily, for lab use only until discontinued starting 10/16/2023 [employer] Comment on above: Lab max of 3 days, Daily, for lab use on ly until discontinued starting 10/16/2023 Magnesium [Mass/volu me] in Serum or Plasma Magnesium Lab Routine Lab max of 3 days, Daily, for lab use only until discontinued starting 10/15/2023, 4 completed [employer] Comment on above: Lab max of 3 days, Daily, for lab use on ly until discontinued starting 10/15/2023, 4 completed End: 01-01-2025 Magnesium [Mass/volume] in Serum or Plasma Magnesium Lab Routine 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 1 Occurrences starting 01/02/2024 until 01/01/2025 [employer] Comment on above: 1 Occurrences starting 01/02/2024 until 01/01/2025 End: 10-18-2023 Myeloperoxidase Antibodies, IgG, Serum Myeloperoxidase Antibodies, IgG, Serum Lab Routine Once for 1 Occurrences starting 10/18/2023 until 10/18/2023 [employer] Comment on above: Once for 1 Occurrences starting 10/18/19 until 10/18/2023 Myeloperoxidase IgG Ab [Units/volume] in Serum Myeloperoxidase Antibodies, IgG, Serum Lab Routine 10/18/2023 11:37 AM EDT [employer] Oxygen Therapy - Maintain SpO2: 90%; *CIVIL ENGINEER Guidelines for O2: Yes; Document: \Hall.[email or web address]\epi c\EPIC_Reference\Orders\ Respiratory Care Guidelines\CPG Oxygen 2022.pdf Oxygen Therapy - Maintain SpO2: 90%; *CIVIL ENGINEER Guidelines for O2: Yes; Document: \[email or web address]\epic\ EPIC_Reference\Orders\Resp iratory Care Guidelines\CPG Oxygen 2022.pdf Respiratory Care Routine As Needed until discontinued starting 10/15/2023 [employer] 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 1 Occurrences starting 01/02/2024 until 01/01/2025 [employer] Comment on above: 1 Occurrences starting 01/02/2024 until 01/01/2025 Phosphate [Mass/volu me] in Serum or Plasma Phosphorus Lab Routine Lab max of 3 days, Daily, for lab use only until discontinued starting 10/16/2023, 3 completed [employer] Comment on above: Lab max of 3 days, Daily, for lab use on ly until discontinued starting 10/16/2023, 3 completed End: 01-01-2025 Phosphate [Mass/volume] in Serum or Plasma Phosphorus Lab Routine 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 1 Occurrences starting 01/02/2024 until 01/01/2025 [employer] Comment on above: 1 Occurrences starting 01/02/2024 until 01/01/2025 End: 01-01-2025 Protein creat ratio Protein creat ratio Lab Routine 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 1 Occurrences starting 01/02/2024 until 01/01/2025 [employer] Comment on above: 1 Occurrences starting 01/02/2024 until 01/01/2025 Protein electrophore sis, urine Protein electrophoresis, urine Lab Routine 10/16/2023 10:37 AM EDT [employer] End: 01-01-2025 Urinalysis Urinalysis Lab Routine 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 1 Occurrences starting 01/02/2024 until 01/01/2025 [employer] Comment on above: 1 Occurrences starting 01/02/2024 until 01/01/2025 End: 01-01-2025 Vitamin D 25 hydroxy Vitamin D 25 hydroxy Lab Routine 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 1 Occurrences starting 01/02/2024 until 01/01/2025 [employer] Comment on above: 1 Occurrences starting 01/02/2024 until 01/01/2025 Immunizations Immunization Date Immunization Notes Care Provider Fa cility 01-02-2021 COVID-19 Vaccine, vector-nr, [id number], PF, 0.5mL Isma Hayward MD Work Phone: [facility] Payers Date Payer Category Payer Medicaid HMO [facility] MEDICAID Member Subscriber Plan / Payer (Effective 2022-Present) Name: Danielle Montana Relation to Subscriber: Self Name: Danielle Montana Payer ID: [id number] (NAIC) Group ID: [id number] Type: Not on file Address: [place] [id number] 2022 Private Health Insurance [facility] [id number] 2022-Present [phone] [address] [place] [id number] 2022 Medicaid [id number] 2017 Medicaid [id number] [id number] 1959 Private Health Insurance [id number] 2.16.840.1.391137.3.441 1964 Unknown [id number] 2.16.840.1.226280.3.579. 2.356 1964 Unknown [id number] 2.16.840.1.587868.3.579. 2.173 1964 Unknown [id number] 2.16.840.1.866773.3.579. 2.173 1964 Unknown [id number] 2.16840.1.104622.3.579. 2.173 1964 Unknown [id number] 2.16.840.1.842006.3.579. 2.593 1964 Unknown [id number] 2.16.840.1.774224.3.579. 2.593 1964 Unknown [id number] 2.16.840.1.474770.3.579. 2.593 1964 Unknown [id number] 2.16.840.1.657931.3.579. 2.1286 1964 Unknown [id number] 2.16.840.1.045789.3.579. 2.6 1964 Unknown [id number] 2.16.840.1.964199.3.579. 2.1285 1964 Unknown [id number] 2.16.840.1.716743.3.579. 2.1285 1964 Unknown [id number] 2.16.840.1.063804.3.579. 2.128 1964 Unknown [id number] 2.16.840.1.669728.3.579. 2.1285 1964 Unknown [id number] 2.16.840.1.365326.3.579. 2.1285 1964 Unknown [id number] 2.16.840.1.021523.3.579. 2.1285 1964 Unknown [id number] 2.16.840.1.565440.3.579. 2.128 1964 Unknown [id number] 2.16.840.1.281592.3.579. 2.1285 1964 Unknown [id number] 2.16.840.1.883922.3.579. 2.9 1964 Unknown [id number] 2.16.840.1.163371.3.579. 2.1259 1964 Unknown [id number] 2.16.840.1.294843.3.579. 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) [place] Start: 1965 Sex Assigned At Not on file M [place] Exposure to SARS-CoV -2 (event) Not sure [place] Tobacco smoking status Unknown if ever sm [facility] Work Phone: History of tobacco use Passive smoker [facility] Start: 11-02-2023 Alcoholic beverage intake Lifetime non-drinker (finding) [facility] Start: 06-04-2020 End: 11-02-2023 Tobacco use panel [facility] Start: 10-15-2023 End: 01-15-2024 Alcoholic beverage intake Ex-drinker (finding) [facility] Has the [employer], or Doctor At Work threatened to shut off services in your home in past 12Mo No [facility] How often to you hav e a drink containing alcohol? Never [facility] Average Number of Drinks Not on file [facility] How often to you hav e a drink containing alcohol? Monthly or less [facility] How many standard drinks containing alcohol do you have on a typical day? 1 or 2 [facility] Start: 11-27-2014 Sex Female (finding) [facility] Goals Date Patient Goal Desired [...] List Diagnosis Date Noted Anxiety 11/06/2023 Cancer ([facility]) 11/06/2023 Cervical cancer ([facility]) 11/06/2023 Morbid obesity ([facility]) 11/06/2023 Cluster headache 11/06/2023 Degenerative arthritis 11/06/2023 Dry mouth 11/06/2023 Heartburn 11/06/2023 Joint pain 11/06/2023 Mouth sores 11/06/2023 MRSA (methicillin resistant Staphylococcus aureus) 11/06/2023 Nausea 11/06/2023 Osteoporosis 11/06/2023 Back pain 11/06/2023 Other chest pain 11/06/2023 SOB (shortness of breath) 11/06/2023 Stiff muscles 11/06/2023 Swollen ankles 11/06/2023 Weakness 11/06/2023 Emphysema of lung ([facility]) 11/02/2023 Class 3 severe obesity due to excess calories without serious comorbidity in adult 11/02/2023 Depression 11/02/2023 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 10/31/2023 Microscopic polyangiitis ([facility]) 10/27/2023 B12 deficiency 10/17/2023 Iron deficiency anemia secondary to inadequate dietary iron intake 10/17/2023 Abnormal fasting glucose 10/16/2023 LUTHER (iron deficiency anemia) 10/16/2023 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, psychotic disturbance, mood disturbance, or anxiety ([facility]) 10/16/2023 Right knee pain 10/16/2023 Tear of articular cartilage of right knee, current, initial encounter 10/16/2023 ERIN (acute kidney injury) 10/15/2023 Edema of both lower extremities 10/15/2023 Mixed hyperlipidemia 10/15/2023 Hypokalemia 10/15/2023 Bipolar depression ([facility]) 04/26/2023 Chronic rhinitis 04/26/2023 Hyperlipidemia 04/26/2023 Non-recurrent acute suppurative otitis media of both ears without spontaneous rupture of tympanic membranes 04/26/2023 Hyperglycemia, drug-induced 12/26/2020 ADORE (obstructive sleep apnea) 12/26/2020 COPD with acute exacerbation ([facility]) 12/25/2020 Urinary tract infection 02/03/2019 Acute respiratory failure with hypoxia and hypercarbia ([facility]) 01/22/2019 Memory change 02/13/2018 Pneumonia of both lungs due to infectious organism 07/14/2017 Peripheral visual field defect, bilateral 05/31/2017 Visual hallucination 05/31/2017 ARSH (generalized anxiety disorder) 04/13/2017 Open angle with borderline findings and high glaucoma risk in both eyes 01/25/2017 Astigmatism, regular 12/15/2016 Hyperopia 12/15/2016 Presbyopia 12/15/2016 PAD (peripheral artery disease) 12/07/2016 Chest pain on exertion 11/11/2016 Chronic obstructive pulmonary disease ([facility]) 06/07/2016 DNS (deviated nasal septum) 06/07/2016 Dysphonia 06/07/2016 Henry's edema of vocal folds 06/07/2016 Smoking 06/07/2016 Tinnitus of right ear 06/07/2016 Tongue lesion 06/03/2016 Cellulitis of left hand 11/15/2015 Essential hypertension 04/20/2015 Morbid (severe) obesity due to excess calories ([facility]) 11/08/2013 Dysthymic disorder 11/08/2013 Fibromyalgia, primary 11/08/2013 Gastroesophageal reflux disease 01/19/2012 Abnormal cardiovascular stress test 11/19/2024 Abnormal findings on diagnostic imaging of heart and coronary circulation 11/19/2024 Allergies: Allergies[2] SYSTEMS QA ANALYST/Current Medications: Prescriptions Prior to Admission[3] Current Medications[4] [...] and agreed to proceed. Abram Man PGY-4 Commodity Industry Analyst [facility] [1] Past Medical History: Diagnosis Date Abnormal ECG Cancer (CMS/HCC) CHF (congestive heart failure) (CMS/HCC) COPD (chronic obstructive pulmonary disease) (CMS/HCC) Hypertension RLS (restless legs syndrome) Sleep apnea [2] Allergies Allergen Reactions Pregabalin Other and Unknown Mental changes Codeine GI intolerance and Nausea And Vomiting Other reaction(s): Nausea And Vomiting Sulfamethoxazole-Trimethoprim Hives [3] Medications Laurita (more content not included)... [facility] 12-06-2024 Note No associated orders from this encounter found during lookback period of 72 hours. [facility] 10-08-2024 Note [facility] Cardiology Clinic Note Chief Complaint: Patient [...] Bumex 1 mg (more content not included)... [facility] 05-20-2024 Note [facility] Cardiology Clinic Note Chief Complaint: Patient here for follow up [facility] for acute CHF. She was discharged from [facility] on losartan and amlodipine but she says she was never provided with RX's for these. She used to see [facility] cardiology back in 2020 for chest pain [...] problems arise Mehrdad Mccormick MD, MPH, FACC, [facility], [facility] Interventional Cardiology Pager Email: [email or web address] Addendum: The patient is in need of a blood pressure cuff to measure her blood pressure at home and to keep an accurate log. Mehrdad Mccormick MD, MPH, FACC, F (more content not included)... [facility] 03-19-2024 Miscellaneous Notes Called patient and left a voicemail to confirm their upcoming appt on 03/25/24 in [place] with Fran Wild MD. The patient was instructed to call our office back to further confirm: [phone] documented in this encounter [employer] 03-19-2024 Telephone encounter Note Called patient and left a voicemail to confirm their upcoming appt on 03/25/24 in [place] with Fran Wild MD. The patient was instructed to call our office back to further confirm: [phone] [facility] 01-31-2024 History of Present illness Narrative Associated Problem(s): Chronic obstructive pulmonary disease ([facility]) Poorly controlled COPD. Currently taking [...] pt to have CXR completed YVAN. Phoned [facility] radiology to call with results. Advised pt if dyspnea, chest pain, dizziness, or worsening symptoms occur to report to ER immediately. Pt verbalized understanding. Pt was following with Pulmonology in [place] 2 years ago, needs established with new Manager [employer]. Has hx of ADORE- does not wear [...] Sore throat Was previously seeing Pulmonology in [place], has not been seen in 2 years. 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 Review of Systems Constitutional: Negative for activity [...] Addressed This Visit Chronic obstructive pulmonary disease ([facility]) - Primary Poorly controlled COPD. Currently taking [...] understanding. Pt was following with Pulmonology in [place] 2 years ago, needs established with new [employer]. Has hx of ADORE- does not wear [...] (ZyrTEC) 10 MG tablet Emphysema of lung ([facility]) Relevant Orders Ambulatory referral to Pulmonology documented in this encounter [facility] 01-31-2024 Instructions Erica Pompa NP - 01/31/2024 2:00 PM EDT Start and finish all medications as prescribed. Have chest X ray completed YVAN Referral sent to pulmonology-Dr. Warner They will call you. If you do not hear from them within 2 weeks, call my office. Worsening shortness of breath, chest pain, gasping for air, dizziness, GO TO ER!!!! documented in this encounter [facility] 01-15-2024 History of Present illness Narrative Images [...] History: Diagnosis Date ERIN (acute kidney injury) ([facility]) 10/18/2023 Anxiety Back pain Cancer ([facility]) cervical cancer approx 1994 Cervical cancer ([facility]) Chest pain Cluster headache COPD (chronic obstructive pulmonary disease) ([facility]) Degenerative arthritis Depression Dry mouth Emphysema Emphysema of lung ([facility]) Fibromyalgia Fibromyalgia, primary GERD (gastroesophageal reflux disease) Heartburn Hypertension Joint pain Morbid obesity ([facility]) Mouth sores MRSA (methicillin resistant Staphylococcus aureus) Nausea Obesity Osteoporosis PAD (peripheral artery disease) ([facility]) PVD (peripheral vascular disease) ([facility]) Sleep apnea cpap SOB (shortness of breath) Stiff muscles Swollen ankles Weakness Surgical History: Past Surgical History: Procedure Laterality Date ABDOMINAL SURGERY BILATERAL SI JOINT INJECTION #1 Bilateral 11/07/2016 Performed by Mony Klein MD at [facility] COLONOSCOPY N/A 10/14/2019 Performed by Eben Lindsay DO at [facility] Coronary angiogram and left ventricular gram/pressure N/A 11/18/2016 Performed by Bobby Stanton MD at [facility] CARDIAC CATH LABS HYSTERECTOMY 06/22/1998 INCISION AND DRAINAGE and irrigation w/Drain LEFT HAND and left elbow Left 11/16/2015 Performed by Kt Ann MD at [facility] TOE AMPUTATION Social History: Social History Socioeconomic [...] 10/15/2023 IRONSAT 16 07/17/2017 FERRITIN 45 10/15/2023 [id number] 159 (L) 10/15/2023 [id number] 391 08/15/2014 FOLATE 10.3 10/15/2023 FOLATE 7.6 [...] (Answering service). BRUCE Landon [facility] This note was created with the assistance of a speech-recognition program. Although the intention is to generate a document that actually reflects the content of the visit, no guarantees can be provided that every mistake has been identified and corrected by editing. BRUCE Landon 01/15/24 1530 BRUCE Landon 01/15/24 1531 documented in this encounter [facility] 01-04-2024 Miscellaneous Notes ----- Message from GAMAL Mccray sent at 01/02/2024 1:46 PM EDT ----- This patient will need added to next weeks add on clinic. She was never seen after hospital d/c in October and she is on rituxan. Ill put her labs in Shazia Pinto LM to schedule f/u. documented in this encounter [facility] 01-04-2024 Telephone encounter Note ----- Message from GAMAL Mccray sent at 01/02/2024 1:46 PM EDT ----- This patient will need added to next weeks add on clinic. She was never seen after hospital d/c in October and she is on rituxan. Ill put her labs in Shazia Pinto [facility] 01-04-2024 Telephone encounter Note LM to schedule f/u. [facility] 11-29-2023 History of Present illness Narrative Pt [...] stable ambulatory condition. documented in this encounter [facility] 10-18-2023 Plan of care note Problem: Pain Goal: Patient goal is pain score less than 4, able to rest, and participant in treatment plan as appropriate Description: INTERVENTIONS: 1. Encourage patient or legal field representative/health education to report early pain and ask for [...] per policy 9. Teach patient or legal field representative/health education interventions for comforting Outcome: Progressing Note: Evaluation [...] at the bedside 7. Instruct patient/ patient field representative/health education about use of safety devices 8. Include patient/ patient field representative/health education in decisions related to safety Outcome: Progressing Note: Evaluation of progress towards goal: call light within reach, bed to lowest position [facility] 10-18-2023 Miscellaneous Notes Problem: Pain Goal: Patient goal is pain score less than 4, able to rest, and participant in treatment plan as appropriate Description: INTERVENTIONS: 1. Encourage patient or legal field representative/health education to report early pain and ask for [...] per policy 9. Teach patient or legal field representative/health education interventions for comforting Outcome: Progressing Note: Evaluation [...] at the bedside 7. Instruct patient/ patient field representative/health education about use of safety devices 8. Include patient/ patient field representative/health education in decisions related to safety Outcome: Progressing Note: Evaluation of progress towards goal: call light within reach, bed to lowest position DISCHARGE PLANNING NOTE Danielle Montana Chair Post Machine Operator conducted a visit at patient bedside. Patient ws updated on transfer process. We discussed that we did find her a new physician, Shawn Zamora in [place], [place]. It is on patient's AVS for time of discharge. Patient Discharge Plan: Home with self care. New physician will be Dr. Shawn Zamora in [place], [place]. [phone]. Patient is to call at time of [...] that there are some limitations compared to vckw-dp-isll evaluations. We elected to proceed. Nephrology Daily [...] dapsone and atovaquone are not available in [facility]. Patient is allergic to Bactrim. 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 Once the patient is at [facility] will start PJP prophylaxis with atovaquone 0 or dapsone. Strict Is&Os. Do not start anticoagulation or antiplatelet therapy without notify Nephrology as patient will need kidney biopsy Irving Flores M.D. [facility] Thank you for your consultation and allowing us to participate in the care of Danielle Monatna and please do not hesitate to call us with any questions at: Office: [phone] Office Answering Service: [phone] Please feel free to contact me through [email or web address] Secure chat during the daytime hours, if [...] Description: INTERVENTIONS: 1. Encourage patient or legal field representative/health education to report early pain and ask for [...] per policy 9. Teach patient or legal field representative/health education interventions for comforting Outcome: Progressing Note: Evaluation [...] at the bedside 7. Instruct patient/ patient field representative/health education about use of safety devices 8. Include patient/ patient field representative/health education in decisions related to safety Outcome: Progressing Note: Evaluation of progress towards goal: PT is free of falls, hourly rounding is completed, area is kept clear. Problem: Knowledge Deficit Goal: Patient/patient field representative/health education demonstrates understanding of disease process, treatment plan, [...] at the bedside 7. Instruct patient/ patient field representative/health education about use of safety devices 8. Include patient/ patient field representative/health education in decisions related to safety Outcome: Progressing Note: Evaluation of progress towards goal: Pt oriented to own abilities. Adequate lighting, area clear of hazards. Problem: Knowledge Deficit Goal: Patient/patient field representative/health education demonstrates understanding of disease process, treatment plan, [...] Score of =/> 25 or indicated by [facility] Assessment Goal: Patient should be free from fall Description: Interventions: 1. [place] to environment 2. Hourly rounds addressing the [...] non-skid footwear 11. Teach patient and patient field representative/health education to maintain environment for safety and engage [...] (cane, walker) within reach 19. Request patient field representative/health education bring adaptive equipment/mobility aids from home or obtain and provide as needed 20. Consult pharmacy regarding effects of med's affecting mobility, cognition, and alternatives 21. Obtain physician order for PT if risk factors associated with mobility are present 22. Obtain physician order for OT as appropriate 23. Utilize diversional activities 24. Educate patient and patient field representative/health education how to maintain a safe environment during visitation times (notify nurse prior to leaving bedside) 25. Consider appropriateness of medical or non-medical assistant instructor 26. Set up voiding schedule as appropriate [...] that there are some limitations compared to zbjx-yn-rwzu evaluations. We elected to proceed. Nephrology Daily [...] ratio is 4.7 g/g. SAUL is pending. Lrfs-yreosg-fqccjoxt DNA is pending. Anca is pending. Glomerular [...] workup Irving Flores M.D. [facility] Thank you for your consultation and allowing us to participate in the care of Danielle Montana and please do not hesitate to call us with any questions at: Office: [phone] Office Answering Service: [phone] Please feel free to contact me through [email or web address] Secure chat during the daytime hours, if [...] Description: INTERVENTIONS: 1. Encourage patient or legal field representative/health education to report early pain and ask for [...] per policy 9. Teach patient or legal field representative/health education interventions for comforting Outcome: Progressing Note: Evaluation [...] at the bedside 7. Instruct patient/ patient field representative/health education about use of safety devices 8. Include patient/ patient field representative/health education in decisions related to safety Outcome: Progressing Note: Evaluation of progress towards goal: Patient will remain safe and free from injury. Problem: Low Risk Fall Score Description: Flores Fall Score of 0 - 24 or indicated by [facility] Assessment Goal: Patient should be free from fall Description: Interventions: 1. [place] to environment 2. Hourly rounds addressing the [...] non-skid footwear 11. Teach patient and patient field representative/health education to maintain environment for safety and engage [...] at the bedside 7. Instruct patient/ patient field representative/health education about use of safety devices 8. Include patient/ patient field representative/health education in decisions related to safety Outcome: Progressing [...] Description: INTERVENTIONS: 1. Encourage patient or legal field representative/health education to report early pain and ask for [...] per policy 9. Teach patient or legal field representative/health education interventions for comforting Outcome: Progressing Note: Evaluation [...] at the bedside 7. Instruct patient/ patient field representative/health education about use of safety devices 8. Include patient/ patient field representative/health education in decisions related to safety Outcome: Progressing [...] hygiene technique 7. Identify and instruct patient/patient field representative/health education in use of appropriate isolation precautions for identified infection/symptoms 8. Provide and discuss with patient/patient field representative/health education on educational MDRO sheet 9. Encourage and monitor nutritional status daily and consult nurses assistant if indicated 10. Implement neutropenic guidelines as [...] that there are some limitations compared to gmbu-fw-oald evaluations. We elected to proceed. Nephrology Daily [...] chain ratio is 0.9 SAUL is pending. Ufnl-sffyyd-zqmanvol DNA is pending. Anca is pending. Glomerular [...] outpatient Irving Flores M.D. [facility] Thank you for your consultation and allowing us to participate in the care of Danielle Montana and please do not hesitate to call us with any questions at: Office: [phone] Office Answering Service: [phone] Please feel free to contact me through [email or web address] Secure chat during the daytime hours, if [...] of assessment Discharge Planning Assessment completed at [facility]. Party Coordinator identified self and role to the patient. Patient is agreeable to the assessment and discussion of a safe discharge plan. 10/16/23 0915 Discharge Disposition Discharge Disposition Home with Self Care County Information County of Residence [place] Patient Information Primary Caregiver Self Support System [...] of Residence Private residence Private Residence [address] [place] Res[address] Accessibility Steps into home Number of Steps 2 Home Care Services No Community Agencies Currently Utilized [employer] (Patient states she does her own cooking [...] DC Assessment Completed: Yes Pharmacy: [facility] in [place], [place]. [facility] to use [facility]. PCP: [...] Description: INTERVENTIONS: 1. Encourage patient or legal field representative/health education to report early pain and ask for [...] per policy 9. Teach patient or legal field representative/health education interventions for comforting Outcome: Progressing Note: Evaluation of progress towards goal: Pt able to report pain according to 0/10 pain scale. Medicating patient for pain per orders. Problem: Pain Goal: Patient goal is pain score less than 4, able to rest, and participant in treatment plan as appropriate Description: INTERVENTIONS: 1. Encourage patient or legal field representative/health education to report early pain and ask for [...] per policy 9. Teach patient or legal field representative/health education interventions for comforting Outcome: Progressing Note: Evaluation of progress towards goal: Pt able to report pain according to 0/10 pain scale. Medicating patient for pain per orders. Problem: Knowledge Deficit Goal: Patient/patient field representative/health education demonstrates understanding of disease process, treatment plan, [...] Consult: Elevated creatinine Referring Provider: Kristina Robles APRN-COLD PATCHER PCP: PCP Not In System Chief Complaint: [...] call us with any questions at: Office: [phone] Office Answering Service: [phone] Fran Wild M.D. This note was created [...] that there are some limitations compared to canb-fs-ydjf evaluations. We elected to proceed. Problem: Knowledge Deficit Goal: Patient/patient field representative/health education demonstrates understanding of disease process, treatment plan, [...] Description: INTERVENTIONS: 1. Encourage patient or legal field representative/health education to report early pain and ask for [...] per policy 9. Teach patient or legal field representative/health education interventions for comforting Outcome: Progressing Note: Evaluation [...] at the bedside 7. Instruct patient/ patient field representative/health education about use of safety devices 8. Include patient/ patient field representative/health education in decisions related to safety Outcome: Progressing Note: Evaluation of progress towards goal: ongoing. Problem: Knowledge Deficit Goal: Patient/patient field representative/health education demonstrates understanding of disease process, treatment plan, medications, and discharge instructions Description: INTERVENTIONS 1. Complete learning assessment and assess knowledge base 2. Provide teaching at level of understanding 3. Provide teaching via preferred learning method(s) Outcome: Progressing Note: Evaluation of progress towards goal: ongoing. documented in this encounter [facility] 10-18-2023 Progress note Formatting of t his note might be different from the original. DISCHARGE PLANNING NOTE Danielle Montana Chair Post Machine Operator conducted a visit at patient bedside. Patient ws updated on transfer process. We discussed that we did find her a new physician, Shawn Zamora in [place], [place]. It is on patient's AVS for time of discharge. Patient Discharge Plan: Home with self care. New physician will be Dr. Shawn Zamora in [place], [place]. [phone]. Patient is to call at time of discharge to schedule appointments as below. Schedule a follow up appointment with new PCP for 7-10 days. Schedule a new patient appointment with new PCP as available. - Silvana Conklin RN 10/18/23 11:22 AM [facility] 10-18-2023 Hospital course Narrative Images from the original note were not included. [facility] Hospital Medicine Discharge Summary Patient: Danielle Montana Date of : 1965 Room: [facility]/ Encounter date: 10/18/23 DATE OF ADMISSION: 10/14/2023 DATE OF DISCHARGE:10/18/2023 DISCHARGE DIAGNOSES Principal Problem: ERIN (acute kidney injury) (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) Iron deficiency anemia secondary to inadequate dietary [...] Protein Urine Random 1,270 (H) <120 mg/L U/Pro/Silverware Washer Ratio Calc 4.72 (H) <0.2 Microalbumin - [...] PM DISCHARGE ASSESSMENT & PLAN Transfer to [facility] per Nephrology DISCHARGE INSTRUCTION Disposition: [facility] Condition: Stable Activity: activity as tolerated [...] [facility] 7PM-7AM ([facility]): Gavin or simon, [phone]. 7PM-7AM ([facility] EpicChat or page through [employer]. This note is dictated with the use of M*Modal. Please note that this dictation was completed with computer voice recognition software. Quite often unanticipated grammatical, syntax, homophones, and other interpretive errors are inadvertently transcribed by the computer software. Please disregard these errors. Please excuse any errors that have escaped final proofreading. Antione Santa, ELECTRONIC INDUCTION HARDENER-COLD PATCHER 10/18/23 1106 I have seen and evaluated the patient, and have reviewed the history above and agree. I have repeated the vázquez portions of the physical exam and concur with the DEREK findings. I have reviewed all laboratory findings and imaging reports/films. I agree with the plan as noted above. Isma hayward documented in this encounter [facility] [employer] [facility] 10-18-2023 Progress note Formatting of t [...] that there are some limitations compared to zrdq-rh-aczx evaluations. We elected to proceed. Nephrology Daily [...] dapsone and atovaquone are not available in [facility]. Patient is allergic to Bactrim. 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 Once the patient is at [facility] will start PJP prophylaxis with atovaquone 0 or dapsone. Strict Is&Os. Do not start anticoagulation or antiplatelet therapy without notify Nephrology as patient will need kidney biopsy Irving Flores M.D. [facility] Thank you for your consultation and allowing us to participate in the care of Danielle Montana and please do not hesitate to call us with any questions at: Office: [phone] Office Answering Service: [phone] Please feel free to contact me through [email or web address] Secure chat during the daytime hours, if no response after 5 minutes then call the answering service. This note was created with the assistance of a speech-recognition program. Although the intention is to generate a document that actually reflects the content of the visit, no guarantees can be provided that every mistake has been identified and corrected by editing. [employer] Work Phone: 10-18-2023 Plan of care note Problem: Pain Goal: Patient goal is pain score less than 4, able to rest, and participant in treatment plan as appropriate Description: INTERVENTIONS: 1. Encourage patient or legal field representative/health education to report early pain and ask for [...] per policy 9. Teach patient or legal field representative/health education interventions for comforting Outcome: Progressing Note: Evaluation [...] at the bedside 7. Instruct patient/ patient field representative/health education about use of safety devices 8. Include patient/ patient field representative/health education in decisions related to safety Outcome: Progressing Note: Evaluation of progress towards goal: PT is free of falls, hourly rounding is completed, area is kept clear. Problem: Knowledge Deficit Goal: Patient/patient field representative/health education demonstrates understanding of disease process, treatment plan, medications, and discharge instructions Description: INTERVENTIONS 1. Complete learning assessment and assess knowledge base 2. Provide teaching at level of understanding 3. Provide teaching via preferred learning method(s) Outcome: Progressing Note: Evaluation of progress towards goal: Learning assessment and knowledge base assessed, teaching provided at an understandable level as needed. [facility] 10-18-2023 Plan of care note Problem: [...] at the bedside 7. Instruct patient/ patient field representative/health education about use of safety devices 8. Include patient/ patient field representative/health education in decisions related to safety Outcome: Progressing Note: Evaluation of progress towards goal: Pt oriented to own abilities. Adequate lighting, area clear of hazards. Problem: Knowledge Deficit Goal: Patient/patient field representative/health education demonstrates understanding of disease process, treatment plan, [...] Score of =/> 25 or indicated by [facility] Re[facility] Assessment Goal: Patient should be free from fall Description: Interventions: 1. [place] to environment 2. Hourly rounds addressing the [...] non-skid footwear 11. Teach patient and patient field representative/health education to maintain environment for safety and engage [...] (cane, walker) within reach 19. Request patient field representative/health education bring adaptive equipment/mobility aids from home or obtain and provide as needed 20. Consult pharmacy regarding effects of med's affecting mobility, cognition, and alternatives 21. Obtain physician order for PT if risk factors associated with mobility are present 22. Obtain physician order for OT as appropriate 23. Utilize diversional activities 24. Educate patient and patient field representative/health education how to maintain a safe environment during visitation times (notify nurse prior to leaving bedside) 25. Consider appropriateness of medical or non-medical assistant instructor 26. Set up voiding schedule as appropriate (every 2 hours) Outcome: Progressing Note: Evaluation of progress towards goal: Pt oriented to own abilities. Adequate lighting, area clear of hazards. [facility] 10-17-2023 History of Present illness Narrative 24 hour urine collection labeled and walked to lab by Deepa Chinchilla Stool sample as ordered collected, ;labeled, and sent to the lab. Images from the original note were not included. [facility] [address] [place] [id number] Hospital Medicine Progress Note Patient: Danielle Montana [...] LIST Principal Problem: ERIN (acute kidney injury) ([facility]) Active Problems: Chronic obstructive pulmonary disease ([facility]) Hypertension ADORE (obstructive sleep apnea) Hypokalemia Edema of both lower extremities Mixed hyperlipidemia Abnormal fasting glucose LUTHER (iron deficiency anemia) Bipolar depression ([facility]) 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, psychotic disturbance, mood disturbance, or anxiety ([facility]) Iron deficiency anemia secondary to inadequate dietary [...] prelim negative Hypokalemia -Supplement today is 3.6 -monitor and storage bin tender -Monitor electrolytes daily replace per protocol. -continue [...] Cohen APRN-TELLY 10/17/2023 1:20 PM [facility] Internal Medicine 7AM-7PM (all facilities): EpicMaria Rt or page through Incant[employer]. 7PM-7AM ([facility], [facility] Psychiatry and Inpatient Rehab): EpicChat or page, [phone]. 7PM-7AM ([place] [place], [facility], [place] and [facility] Rehab): EpicChat or page through Inc[employer]. Nataliia Cohen APRN-COLD PATCHER 10/17/23 1320 I have seen and evaluated [...] from the original note were not included. [facility] [address] [facility] [id number] Hospital Medicine Progress Note Patient: Danielle Montana [...] Principal Problem: ERIN (acute kidney injury) ([facility]) Active Problems: Chronic obstructive pulmonary disease ([facility]) Hypertension ADORE (obstructive sleep apnea) Hypokalemia Edema of both lower extremities Mixed hyperlipidemia Abnormal fasting glucose LUTHER (iron deficiency anemia) Bipolar depression ([facility]) 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, psychotic disturbance, mood disturbance, or anxiety ([facility]) ASSESSMENT & PLAN ERIN -Stopped IV hydration [...] leg dopplers Hypokalemia -Supplement today is 3.2 -monitor and storage bin tender -Monitor electrolytes daily replace per protocol. -continue [...] of diuresis. BRUCE Maria 10/16/2023 7:56 AM [facility] Internal Medicine 7AM-7PM (all facilities): EpicChat or page through Incant[employer]. 7PM-7AM ([facility], [facility] Psychiat[facility] and Inpatient Rehab): EpicChat or page, [phone]. 7PM-7AM ([facility] [place], [facility], [place] and [facility] Rehab): EpicChat or page through [facility] [employer]. BRUCE Maria 10/16/23 1136 I have seen and evaluated the patient, [...] 10/16/2023 1:58 PM documented in this encounter [facility] 10-17-2023 Hospital Discharge instructions Geetha Zamudio - 10/17/2023 11:47 AM EDT YOUR SCHEDULED APPOINTMENTS Please make note of this in your schedule as to not miss or call to reschedule. Thank you! Please call office to schedule a NEW patient appointment with Dr. Shawn Zamora MD Address: [address] [place] [id number] Pt. should bring the following to appointment; [...] For NEW patients, MD will not prescribe intermediate card tender pain medication. documented in this encounter [employer] 10-17-2023 Progress note Formatting of t his [...] that there are some limitations compared to uijk-cw-bdrx evaluations. We elected to proceed. Nephrology Daily [...] ratio is 4.7 g/g. SAUL is pending. Bysa-tfngvv-kgpnlmcm DNA is pending. Anca is pending. Glomerular [...] workup Irving Flores M.D. [facility] Thank you for your consultation and allowing us to participate in the care of Danielle Montana and please do not hesitate to call us with any questions at: Office: [phone] Office Answering Service: [phone] Please feel free to contact me through [email or web address] Secure chat during the daytime hours, if no response after 5 minutes then call the answering service. This note was created with the assistance of a speech-recognition program. Although the intention is to generate a document that actually reflects the content of the visit, no guarantees can be provided that every mistake has been identified and corrected by editing. [facility] [employer] [facility] 10-17-2023 Plan of care note Problem: Pain Goal: Patient goal is pain score less than 4, able to rest, and participant in treatment plan as appropriate Description: INTERVENTIONS: 1. Encourage patient or legal field representative/health education to report early pain and ask for [...] per policy 9. Teach patient or legal field representative/health education interventions for comforting Outcome: Progressing Note: Evaluation [...] at the bedside 7. Instruct patient/ patient field representative/health education about use of safety devices 8. Include patient/ patient field representative/health education in decisions related to safety Outcome: Progressing Note: Evaluation of progress towards goal: Patient will remain safe and free from injury. Problem: Low Risk Fall Score Description: Flores Fall Score of 0 - 24 or indicated by [facility] Assessment Goal: Patient should be free from fall Description: Interventions: 1. [place] to environment 2. Hourly rounds addressing the [...] non-skid footwear 11. Teach patient and patient field representative/health education to maintain environment for safety and engage in all aspects of fall prevention program Outcome: Progressing Note: Evaluation of progress towards goal: Patient will remain free from falls. [facility] [employer] [facility] 10-17-2023 Plan of care note Problem: [...] at the bedside 7. Instruct patient/ patient field representative/health education about use of safety devices 8. Include patient/ patient field representative/health education in decisions related to safety Outcome: Progressing [...] self. Will assist in reposition when needed. [facility] 10-16-2023 Plan of care note Problem: Pain Goal: Patient goal is pain score less than 4, able to rest, and participant in treatment plan as appropriate Description: INTERVENTIONS: 1. Encourage patient or legal field representative/health education to report early pain and ask for [...] per policy 9. Teach patient or legal field representative/health education interventions for comforting Outcome: Progressing Note: Evaluation [...] at the bedside 7. Instruct patient/ patient field representative/health education about use of safety devices 8. Include patient/ patient field representative/health education in decisions related to safety Outcome: Progressing [...] hygiene technique 7. Identify and instruct patient/patient field representative/health education in use of appropriate isolation precautions for identified infection/symptoms 8. Provide and discuss with patient/patient field representative/health education on educational MDRO sheet 9. Encourage and monitor nutritional status daily and consult nurses assistant if indicated 10. Implement neutropenic guidelines as [...] patient is diuresing, nephro consulted. I/O's continued. [facility] [employer] [facility] 10-16-2023 Progress note Formatting of t [...] that there are some limitations compared to dhzc-ok-wlvw evaluations. We elected to proceed. Nephrology Daily [...] chain ratio is 0.9 SAUL is pending. Gvdv-ekujzn-ycblmwml DNA is pending. Anca is pending. Glomerular [...] outpatient Irving Flores M.D. [facility] Thank you for your consultation and allowing us to participate in the care of Danielle Montana and please do not hesitate to call us with any questions at: Office: [phone] Office Answering Service: [phone] Please feel free to contact me through [email or web address] Secure chat during the daytime hours, if no response after 5 minutes then call the answering service. This note was created with the assistance of a speech-recognition program. Although the intention is to generate a document that actually reflects the content of the visit, no guarantees can be provided that every mistake has been identified and corrected by editing. [employer] [facility] 10-16-2023 Progress note Formatting of t his note is different from the original. Images from the original note were not included. DISCHARGE PLANNING NOTE Discharge Planning Assessment Danielle Montana Admit Status: Inpatient Meet: Unknown Readmission Risk: 15%. Date of Admission: 10/14/2023 GMLOS: not available at time of assessment Target Discharge Date: not available at time of assessment Discharge Planning Assessment completed at [facility]. Party Coordinator identified self and role to the patient. Patient is agreeable to the assessment and discussion of a safe discharge plan. 10/16/23 0915 Discharge Disposition Discharge Disposition Home with Self Care County Information County of Residence [place] Patient Information Primary Caregiver Self Support System [...] of Residence Private residence Private Residence 1 [place] Res[place] Accessibility Steps into home Number of Steps 2 Home Care Services No Community Agencies Currently Utilized [employer] (Patient states she does her own cooking [...] DC Assessment Completed: Yes Pharmacy: [facility] in [place], [place]. [facility] to use [facility]. PCP: [...] - Silvana Conklin RN 10/16/23 11:30 AM [facility] [employer] [facility] 10-15-2023 Plan of care note Problem: Pain Goal: Patient goal is pain score less than 4, able to rest, and participant in treatment plan as appropriate Description: INTERVENTIONS: 1. Encourage patient or legal field representative/health education to report early pain and ask for [...] per policy 9. Teach patient or legal field representative/health education interventions for comforting Outcome: Progressing Note: Evaluation of progress towards goal: Pt able to report pain according to 0/10 pain scale. Medicating patient for pain per orders. T [facility] 10-15-2023 Plan of care note Problem: Pain Goal: Patient goal is pain score less than 4, able to rest, and participant in treatment plan as appropriate Description: INTERVENTIONS: 1. Encourage patient or legal field representative/health education to report early pain and ask for [...] per policy 9. Teach patient or legal field representative/health education interventions for comforting Outcome: Progressing Note: Evaluation of progress towards goal: Pt able to report pain according to 0/10 pain scale. Medicating patient for pain per orders. Problem: Knowledge Deficit Goal: Patient/patient field representative/health education demonstrates understanding of disease process, treatment plan, [...] goal: Continue to assess for when appropriate. [facility] 10-15-2023 Consult note Formatting of th [...] call us with any questions at: Office: [phone] Office Answering Service: [phone] Fran Wild M.D. This note was created [...] that there are some limitations compared to jhym-su-dkln evaluations. We elected to proceed. [employer] Work Phone: 10-15-2023 History and physical note Images from the original note were not included. [facility] INTER[facility]IC[facility] Hospital Medicine History & Physical Patient: Danielle Montana Date of : 1965 Room: [facility] PCP: PCP Not In System Admission date: [...] medical history of Anxiety, Back pain, Cancer ([facility]), Cervical cancer ([facility]), Chest pain, Cluster headache, COPD (chronic obstructive pulmonary disease) ([facility]), Degenerative arthritis, Depression, Dry mouth, Emphysema, Emphysema of lung ([facility]), Fibromyalgia, Fibromyalgia, primary, GERD (gastroesophageal reflux disease), Heartburn, Hypertension, Joint pain, Morbid obesity ([facility]), Mouth sores, MRSA (methicillin resistant Staphylococcus aureus), Nausea, Obesity, Osteoporosis, PAD (peripheral artery disease) ([facility]), PVD (peripheral vascular disease) ([facility]), Sleep apnea, SOB (shortness of breath), Stiff [...] Principal Problem: ERIN (acute kidney injury) ([facility]) Active Problems: Chronic obstructive pulmonary disease ([facility]) Hypertension ADORE (obstructive sleep apnea) Hypokalemia Edema of both lower extremities Mixed hyperlipidemia ASSESSMENT & PLAN ERIN: Gentle hydration. Nephrology consult. Monitor kidney function daily. Edema both lower extremities: Monitor daily weight and I&O. Echocardiogram ordered. Nephrology consult help with diuresis/fluid balance. Hypokalemia: Supplement. monitor and storage bin tender. Monitor electrolytes daily replace per protocol. COPD: [...] APRN-TELLY, 10/15/2023 8:35 AM Dhruv Shelby [facility] Internal Medicine 7AM-7PM (all facilities): EpicChat or page through Vocera. 7PM-7AM ([facility], [facility] Psychiatry and Inpatient Rehab): EpicChat or page, [phone]. 7PM-7AM ([facility]): EpicChat or page [...] above, unless otherwise noted. DRE JEWELL MD [employer] Work Phone: 10-15-2023 History and physical note Images from the original note were not included. [facility] INTERNAL MEDICINE Hospital Medicine History & Physical Patient: Danielle [place] Date of : 1965 Room: [facility] PCP: PCP Not In System Admission date: [...] medical history of Anxiety, Back pain, Cancer ([facility]), Cervical cancer ([facility]), Chest pain, Cluster headache, COPD (chronic obstructive pulmonary disease) ([facility]), Degenerative arthritis, Depression, Dry mouth, Emphysema, Emphysema of lung ([facility]), Fibromyalgia, Fibromyalgia, primary, GERD (gastroesophageal reflux disease), Heartburn, Hypertension, Joint pain, Morbid obesity ([facility]), Mouth sores, MRSA (methicillin resistant Staphylococcus aureus), Nausea, Obesity, Osteoporosis, PAD (peripheral artery disease) ([facility]), PVD (peripheral vascular disease) ([facility]), Sleep apnea, SOB (shortness of breath), Stiff [...] Principal Problem: ERIN (acute kidney injury) ([facility]) Active Problems: Chronic obstructive pulmonary disease ([facility]) Hypertension ADORE (obstructive sleep apnea) Hypokalemia Edema of both lower extremities Mixed hyperlipidemia ASSESSMENT & PLAN ERIN: Gentle hydration. Nephrology consult. Monitor kidney function daily. Edema both lower extremities: Monitor daily weight and I&O. Echocardiogram ordered. Nephrology consult help with diuresis/fluid balance. Hypokalemia: Supplement. monitor and storage bin tender. Monitor electrolytes daily replace per protocol. COPD: [...] Santa APRN-TELLY, 10/15/2023 8:35 AM [facility] Internal Medicine 7AM-7PM (all facilities): EpicChat or page through Vocera. 7PM-7AM ([facility], [facility] Psychiatry and Inpatient Rehab): EpicChat or page, [phone]. 7PM-7AM ([facility]): EpicChat or page [...] DRE JEWELL MD documented in this encounter [facility] 10-15-2023 Plan of care note Problem: Knowledge Deficit Goal: Patient/patient field representative/health education demonstrates understanding of disease process, treatment plan, [...] goal: Continue to assess for when appropriate. [facility] 10-15-2023 Plan of care note Problem: Pain Goal: Patient goal is pain score less than 4, able to rest, and participant in treatment plan as appropriate Description: INTERVENTIONS: 1. Encourage patient or legal field representative/health education to report early pain and ask for [...] per policy 9. Teach patient or legal field representative/health education interventions for comforting Outcome: Progressing Note: Evaluation [...] at the bedside 7. Instruct patient/ patient field representative/health education about use of safety devices 8. Include patient/ patient field representative/health education in decisions related to safety Outcome: Progressing Note: Evaluation of progress towards goal: ongoing. Problem: Knowledge Deficit Goal: Patient/patient field representative/health education demonstrates understanding of disease process, treatment plan, medications, and discharge instructions Description: INTERVENTIONS 1. Complete learning assessment and assess knowledge base 2. Provide teaching at level of understanding 3. Provide teaching via preferred learning method(s) Outcome: Progressing Note: Evaluation of progress towards goal: ongoing. [facility] 10-14-2023 Emergency department Triage note Bilateral hand/feet swelling, cough, headache [facility] 10-14-2023 Emergency department Note Bilateral hand/feet swelling, [...] History: Diagnosis Date Anxiety Back pain Cancer ([facility]) cervical cancer approx 1994 Cervical cancer ([facility]) Chest pain Cluster headache COPD (chronic obstructive pulmonary disease) ([facility]) Degenerative arthritis Depression Dry mouth Emphysema Emphysema of lung ([facility]) Fibromyalgia Fibromyalgia, primary GERD (gastroesophageal reflux disease) Heartburn Hypertension Joint pain Morbid obesity ([facility]) Mouth sores MRSA (methicillin resistant Staphylococcus aureus) Nausea Obesity Osteoporosis PAD (peripheral artery disease) ([facility]) PVD (peripheral vascular disease) ([facility]) Sleep apnea cpap SOB (shortness of breath) Stiff muscles Swollen ankles Weakness Past Surgical History: Procedure Laterality Date ABDOMINAL SURGERY BILATERAL SI JOINT INJECTION #1 Bilateral 11/07/2016 Performed by Mony Klein MD at [facility] COLONOSCOPY N/A 10/14/2019 Performed by Eben Lindsay DO at [facility] Coronary angiogram and left ventricular gram/pressure N/A 11/18/2016 Performed by Bobby Stanton MD at [facility] CARDIAC CATH LABS HYSTERECTOMY 06/22/1998 INCISION AND DRAINAGE and irrigation w/Drain LEFT HAND and left elbow Left 11/16/2015 Performed by Kt Ann MD at [facility] TOE AMPUTATION Travel Screening No screening [...] as of 10/15/2340 ERIN (acute kidney injury) ([facility]) Hypertensive urgency Hypokalemia Elevated brain natriuretic peptide (BNP) level MDM Medical Decision Making INanette (scribe) documented for Dr. Elliott. Chief Complaint: Leg swelling, arm swelling, nausea and a cough Differential Diagnosis includes but is not limited to: CHF exacerbation, hypertensive urgency, anemia, electrolyte derangement, SC. Plan of Care: Dr. Elliott ordered Troponin [...] is pending admission. 41 -- Niya Robles MEDICAL PRACTICE ASSISTANT accepts patient under Dr Jewell. Patient to [...] None Diagnosis: 1. ERIN (acute kidney injury) ([facility]) 2. Hypertensive urgency 3. Hypokalemia 4. Elevated brain natriuretic peptide (BNP) level Disposition: Patient's disposition: Admit Patient's condition is stable. Provider Statement By electronically signing this emergency patient record, the Emergency Physician/MEDICAL PRACTICE ASSISTANT/PA-C attests that all entries made into the electronic medical record by patrick Hall prior to the Physician/MEDICAL PRACTICE ASSISTANT/PA-C signature reflect an accurate accounting of the evaluation and care rendered by that Emergency Physician/MEDICAL PRACTICE ASSISTANT/PA-C. The Emergency Physician/MEDICAL PRACTICE ASSISTANT/PA-C assumes full responsibility for those entries. The Emergency Physician/MEDICAL PRACTICE ASSISTANT/PA-C also attests that any patient testing or treatment that was instituted by nursing staff in accordance to Emergency Department Preemptive Guidelines have been reviewed and unless so stated elsewhere in this patient chart, the Physician/MEDICAL PRACTICE ASSISTANT/PA-C agrees with the testing and care provided. No Additional Attestations Nanette Hernandez 10/14/23 2210 Nanette Hernandez 10/14/23 2234 Alexis Elliott DO 10/14/23 2237 Nanette Hernandez 10/14/23 2240 Nanette Hernandez 10/14/23 2326 Nanette Hernandez 10/14/23 2358 Gillian Cordero MD 10/15/23 0043 Alexis Elliott DO 10/15/23 0401 documented in this encounter [facility] 10-14-2023 Physician Emergency department Note Images from [...] History: Diagnosis Date Anxiety Back pain Cancer ([facility]) cervical cancer approx 1994 Cervical cancer ([facility]) Chest pain Cluster headache COPD (chronic obstructive pulmonary disease) ([facility]) Degenerative arthritis Depression Dry mouth Emphysema Emphysema of lung ([facility]) Fibromyalgia Fibromyalgia, primary GERD (gastroesophageal reflux disease) Heartburn Hypertension Joint pain Morbid obesity ([facility]) Mouth sores MRSA (methicillin resistant Staphylococcus aureus) Nausea Obesity Osteoporosis PAD (peripheral artery disease) ([facility]) PVD (peripheral vascular disease) ([facility]) Sleep apnea cpap SOB (shortness of breath) Stiff muscles Swollen ankles Weakness Past Surgical History: Procedure Laterality Date ABDOMINAL SURGERY BILATERAL SI JOINT INJECTION #1 Bilateral 11/07/2016 Performed by Mony Klein MD at [facility] COLONOSCOPY N/A 10/14/2019 Performed by Eben Lindsay DO at [facility] Coronary angiogram and left ventricular gram/pressure N/A 11/18/2016 Performed by Bobby Stanton MD at [facility] CARDIAC CATH LABS HYSTERECTOMY 06/22/1998 INCISION AND DRAINAGE and irrigation w/Drain LEFT HAND and left elbow Left 11/16/2015 Performed by Kt Ann MD at [facility] TOE [facility] Travel Screening No screening [...] of 10/15/23 0041 Sat Oct 14, 2023 8260 Pain Score: 8 [KM] ED Course User [...] CHF exacerbation, hypertensive urgency, anemia, electrolyte derangement, SC. Plan of Care: Dr. Elliott ordered Troponin [...] is pending admission. 0042 -- Niya Robles MEDICAL PRACTICE ASSISTANT accepts patient under Dr Jewell. Patient to [...] None Diagnosis: 1. ERIN (acute kidney injury) ([facility]) 2. Hypertensive urgency 3. Hypokalemia 4. Elevated brain natriuretic peptide (BNP) level Disposition: Patient's disposition: Admit Patient's condition is stable. Provider Statement By electronically signing this emergency patient record, the Emergency Physician/MEDICAL PRACTICE ASSISTANT/PA-C attests that all entries made into the electronic medical record by patrick Hall prior to the Physician/MEDICAL PRACTICE ASSISTANT/PA-C signature reflect an accurate accounting of the evaluation and care rendered by that Emergency Physician/MEDICAL PRACTICE ASSISTANT/PA-C. The Emergency Physician/MEDICAL PRACTICE ASSISTANT/PA-C assumes full responsibility for those entries. The Emergency Physician/MEDICAL PRACTICE ASSISTANT/PA-C also attests that any patient testing or treatment that was instituted by nursing staff in accordance to Emergency Department Preemptive Guidelines have been reviewed and unless so stated elsewhere in this patient chart, the Physician/MEDICAL PRACTICE ASSISTANT/PA-C agrees with the testing and care provided. No Additional Attestations Nanette Hernandez 10/14/23 2210 Nanette Hernandez 10/14/23 2234 Alexis Elliott DO 10/14/23 2237 Nanette Hernandez 10/14/23 2240 Nanette Hernnadez 10/14/23 2326 Nanette Hernandez 10/14/23 2358 Gillian Cordero MD 10/15/23 0043 Alexis Elliott DO 10/15/23 0401 [employer] Work Phone: 02-09-2022 Note PROCEDURE: XR [...] by: LO COSTA Date: 2022-02-09 06:[address] [facility] 02-09-2022 Note PROCEDURE: XR ANKLE RT [...] by: LO COSTA Date: 2022-02-09 06:[address] [facility] Evaluation note Includes: Assessments for all patient encountersNo Assessments Recorded Health [facility] Work Phone: Evaluation note Diagnosis ARSH (generalized anxiety disorder) ([facility]) Generalized anxiety disorder documented [facility] encounter [facility] Diagnosis Chronic obstructive pulmonary disease with acute exacerbation ([facility])- Primary Chronic rhinitis Bipolar depression ([facility]) Bipolar I disorder, most recent episode (or current) depressed, unspecified ADORE (obstructive sleep apnea) Obstructive sleep apnea (adult) (pediatric) Pulmonary emphysema, unspecified emphysema type ([facility]) documented [facility] Diagnosis ERIN (acute kidney injury) ([facility] Primary ERIN (acute kidney injury) ([facility]) Hypertensive urgency Hypokalemia Hypopotassemia Elevated brain natriuretic peptide (BNP) level Chronic obstructive pulmonary disease ([facility]) Hypertension Unspecified essential hypertension Hypokalemia Hypopotassemia ADORE (obstructive sleep apnea) Obstructive sleep apnea (adult) (pediatric) Edema of both lower extremities Mixed hyperlipidemia Abnormal fasting glucose LUTHER (iron deficiency anemia) Unspecified iron deficiency anemia Bipolar depression ([facility]) Bipolar I disorder, most recent episode (or current) depressed, unspecified 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, psychotic disturbance, mood disturbance, or anxiety ([facility]) Iron deficiency anemia secondary to inadequate dietary iron intake B12 deficiency [facility] Diagnosis 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) Hypovitaminosis D Unspecified vitamin D deficiency Hypomagnesemia Disorders of magnesium metabolism Primary hypertension Unspecified essential hypertension Nephrotic range proteinuria Proteinuria [facility] Narrative History of Present Illness not supported for this document type No History of Present Illness [facility] Work Phone: Instructions Instructions not supported for this document type No Instructions [facility]ed[facility] Work Phone: InstructionsNot on filedocumented in this [...] Outcomes for active Goals No Outcomes [facility] Work Phone: reason for referral (narrative)* Consultation (Routine) - Pending Review Specialty Diagnoses / Procedures Referred By Juan fonseca Referred To Contact Pulmonary Disease Diagnoses Chronic obstructive pulmonary disease with acute exacerbation ([facility]) ADORE (obstructive sleep apnea) Pulmonary emphysema, unspecified emphysema type ([facility]) Procedures [place] OFFICE[facility]OUTPATIENT [facility] MDM 60 MINUTES Erica Pompa NP [address] [place] [address] Referral ID Status Reason Start Date Expiration Date Visits Requested Visits Authorized [id number] Pending Review Specialty Services Required 01/31/2024 07/29/2024 1 1 [facility] Narrative - Reported Review of Systems not supported for this document type No Review of Systems [facility] Work Phone: History [...] FoundDocuments on File Type Date Recorded Patient Senior Clinical Data Manager Expl anation ACP-Advance Directive ACP-Power of Bench Precision Assembler Documents on File Type Date Recorded Patient Senior Clinical Data Manager Expl anation Durable Power of Bench Precision Assembler 01/12/2021 1:47 PM Living Will 01/12/2021 1:47 [...] section and content) DATE CREATED AUTHOR 10/23/2017 [facility] DATE CREATED AUTHOR AUTHOR'S ORGANIZ ATION 08/01/2018 [facility] DATE CREATED AUTHOR AUTHOR'S ORGANIZ ATION 08/11/2018 [employer] DATE CREATED AUTHOR AUTHOR'S ORGANIZ ATION 01/23/2020 [facility] DATE CREATED AUTHOR AUTHOR'S ORGANIZ ATION 04/19/2022 [facility] DATE CREATED AUTHOR AUTHOR'S ORGANIZ ATION 01/14/2024 [facility] DATE CREATED AUTHOR AUTHOR'S ORGANIZ ATION 01/23/2024 [facility] DATE CREATED AUTHOR AUTHOR'S ORGANIZ ATION 02/02/2024 [facility] DATE CREATED AUTHOR AUTHOR'S ORGANIZ ATION 12/27/2024 [facility] Reason for Visit (unrecogniz ed section and content) Reason Onset Date Comments Med Refill 01/29/2024 Reason Comments Cough Reason Comments Leg Swelling Arm Swelling Nausea Cough Specialty Diagnoses / Procedures Referred By Juan fonseca Referred To Contact Diagnoses Hypokalemia Chest pain ERIN (acute kidney injury) ([facility]) Hypertensive urgency Elevated brain natriuretic peptide (BNP) level Dre Jewell MD [address] [place] [address] Referral ID Status Reason Start Date Expiration Date Visits Re quested Visits Authorized [id number] 1 1 Reason Comments Outpatient Infusion [facility] Specialty Diagnoses / Procedures Referred By Juan fonseca Referred To Contact Diagnoses 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 Procedures INJECTION,RITUXIMAB-PVVR,BI OSIMILAR,(RUXIENCE),10MG INJECTION, RITUXIMAB-ABBS,BIOSIMILAR,( TRUXIMA),10MG Wanda Mendez MD [address] [place] [address] Pfo Med Onc [address] [place] [address] Referral ID Status Reason Start Date Expiration Date V isits Requested Visits Authorized [id number] Authorized 11/13/2023 11/09/2024 1 4 Reason Comments Med Refill Care Teams (unrecognized sec tion and content) Paint Spray Tender Relationship Specialty Start Date End Date Vu Rivera MD [address] [place] [address] PCP - General Family Medicine 12/12/23 Erica Pompa NP [address] [place] [address] Nurse Practitioner Family Medicine 12/12/23 Paint Spray Tender Relationship Specialty Start Date End Date Vu Rivera MD [address] [place] [phone] PCP - General Family Medicine 12/12/23 Erica Pompa NP [address] [place] [address] Nurse Practitioner Family Medicine 12/12/23 Paint Spray Tender Relationship Specialty Start Date End Date Vu Rivera MD [address] [place] [phone] PCP - General Family Medicine 12/12/23 Erica Pompa NP [address] [place] [address] Nurse Practitioner Family Medicine 12/12/23 Paint Spray Tender Relationship Specialty Start Date End Date Pcp, [place] [address] PCP - General Family Medicine 10/14/23 Paint Spray Tender Relationship Specialty Start Date End Date Shawn Zamora MD [address] [place] [address] PCP - General Family Medicine 10/19/23 Paint Spray Tender Relationship Specialty Start Date End Date Shawn Zamora MD [address] [place] [address] PCP - General Family Medicine 10/19/23 Paint Spray Tender Relationship Specialty Start Date End Date Shawn Zamora MD [address] [place] [address] PCP - General Family Medicine 10/19/23 Paint Spray Tender Relationship Specialty Start Date End Date Shawn Zamora MD [address] [place] [address] PCP - General Family Medicine 10/19/23 Paint Spray Tender Relationship Specialty Start Date End Date Shawn Zamora MD [address] [place], [place] [id number] PCP - General Family Medicine 10/19/23 Paint Spray Tender Relationship Specialty Start Date End Date Shawn Zamora MD [address] [place], [place] [id number] PCP - General Family Medicine 10/19/23 Paint Spray Tender Relationship Specialty Start Date End Date Shawn Zamora MD [address] [place] [address] PCP - General Family Medicine 10/19/23 Scheduled [...] whole-do not crush or chew. Although the national sales does not recommend opening the capsule to [...] Every 4 hours PRN, high blood pressure, [phone], Starting on 10/15/23 at 1020, Look-alike/sound-alike medication [...] Romelia Miller RCP) kit for prep of [id number] 2.5 mg recon soln 5 millicurie (COMPLETED) [...] BE BASED ON THE PRIMARY CLINICAL RECORDS. [email or web address] provides no warranty or guarantee of the accuracy or completeness of information in this document.
--- NOTE | 2025-01-29 05:03 | ED.SOB1 ---
Documented by User: Rupesh Stallworth MD 02/05/25 06:44 HPI - SOB/Dyspnea General Chief Complaint: Shortness of Breath/Dyspnea Stated Complaint: SOB Time Seen by Provider: 01/29/25 04:35 Source: patient Mode of arrival: ambulance History of Present Illness HPI Narrative: past history of COPD and CHF. daily cigarette smoker. Past history of pneumonia. Ill past 3 days with recurrent cough and shortness of breath. No fever, chest pain or nausea. No associated abdominal pain Squad called and patient given solumedrol and duoneb enroute. arrives still complaining of shortness of breath. has frequent cough but no use of accessory muscles Related Data Home Medications ?Medication ?Instructions ?Recorded ?Confirmed buspirone 15 mg tablet 15 mg PO BID 03/23/24 01/29/25 donepezil 10 mg tablet 10 mg PO DAILY 03/23/24 01/29/25 duloxetine 60 mg capsule,delayed 60 mg PO DAILY 03/23/24 01/29/25 release ferrous sulfate 325 mg (65 mg 325 mg PO DAILY 03/23/24 01/29/25 iron) tablet (FeroSul) lamotrigine 100 mg tablet 100 mg PO DAILY 04/08/24 01/29/25 cetirizine 10 mg tablet 10 mg PO .QD 04/09/24 01/29/25 cholecalciferol (vitamin D3) 125 5,000 unit PO .QD 04/09/24 01/29/25 mcg (5,000 unit) tablet amlodipine 10 mg tablet 10 mg PO .qd 01/29/25 01/29/25 cyanocobalamin (vitamin B-12) 1,000 mcg PO DAILY 01/29/25 01/29/25 1,000 mcg tablet dapagliflozin propanediol 10 mg 10 mg PO DAILY 01/29/25 01/29/25 tablet (Farxiga) hydroxyzine HCl 25 mg tablet 25 mg PO Q8H PRN anxiety 01/29/25 01/29/25 losartan 25 mg tablet 25 mg PO DAILY 01/29/25 01/29/25 magnesium oxide 400 mg (241.3 mg 400 mg PO DAILY 01/29/25 01/29/25 magnesium) tablet omeprazole 40 mg capsule,delayed 40 mg PO DAILY 01/29/25 01/29/25 release Previous Rx's ?Medication ?Instructions ?Recorded prednisone 20 mg tablet 40 mg (2 x 20 mg) PO DAILY 4 days 01/29/25 #8 tabs acetaminophen 325 mg tablet 325 mg PO Q6H PRN fever or pain 01/31/25 (Tylenol) #120 tabs albuterol sulfate 90 mcg/actuation 2 puff inhalation Q6H PRN 01/31/25 aerosol inhaler shortness of breath or wheezing #6.7 grams budesonide-formoterol HFA 160 1 inh inhalation BID #10.2 grams 01/31/25 mcg-4.5 mcg/actuation aerosol inhaler (Symbicort) bumetanide 1 mg tablet 1 mg PO DAILY #60 tabs 01/31/25 carvedilol 25 mg tablet 12.5 mg (1/2 x 25 mg) PO Q12H #0 01/31/25 tabs ipratropium 0.5 mg-albuterol 3 mg 3 ml inhalation RTTID PRN 01/31/25 (2.5 mg base)/3 mL nebulization shortness of breath or wheezing soln #90 mL nicotine 14 mg/24 hr daily 14 mg transdermal Q24H PRN 01/31/25 transdermal patch nicotine withdraw #28 ea Allergies Allergy/AdvReac Type Severity Reaction Status Date / Time pregabalin (From Lyrica) Allergy Intermediate Rash Verified 01/29/25 04:31 sulfamethoxazole (From Allergy Intermediate Rash Verified 01/29/25 04:31 Bactrim) trimethoprim (From Bactrim) Allergy Intermediate Rash Verified 01/29/25 04:31 codeine AdvReac Intermediate Nausea Verified 01/29/25 14:01 Review of Systems ROS Status of ROS 10 or more systems reviewed and unremarkable except as noted in history and below [facility] Medical History (Updated 02/04/25 @ 00:00 by ) Normal hysteroscopy ?Z01.89 - Encounter for other specified special examinations (ICD-10) Toe amputee ?Z89.429 - Acquired absence of other toe(s), unspecified side (ICD-10) Morbid obesity with BMI of 60.0-69.9, adult ?E66.01 - Morbid (severe) obesity due to excess calories (ICD-10) ?Z68.44 - Body mass index [BMI] 60.0-69.9, adult (ICD-10) Iron deficiency anemia ?D50.9 - Iron deficiency anemia, unspecified (ICD-10) Primary hypertension ?I10 - Essential (primary) hypertension (ICD-10) COPD (chronic obstructive pulmonary disease) ?J44.9 - Chronic obstructive pulmonary disease, unspecified (ICD-10) Tobacco abuse ?Z72.0 - Tobacco use (ICD-10) Surgical History (Updated 01/29/25 @ 10:38 by Rossana Edouard) H/O hysterectomy for benign disease ?Z90.710 - Acquired absence of both cervix and uterus (ICD-10) H/O left heart catheterization by ventricular puncture ?Z98.890 - Other specified postprocedural states (ICD-10) Family History (Updated 01/29/25 @ 11:29 by Alisha Leroy) Father Family history of CHF (congestive heart failure) Family history of hypertension Mother Family history of COPD (chronic obstructive pulmonary disease) Family history of cancer Family history of diabetes mellitus Family history of hypertension Social History (Updated 01/29/25 @ 11:30 by Alisha Leroy) Within the past year, how often did you have a drink containing alcohol: never Score interpretation: A score less than 3 is consistent with normal alcohol consumption. 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: No Highest level of school completed/degree received: high school graduate Do you want help with school or training: No Are you now , , , , never or living with a partner: In a typical week, how many times do you talk on the telephone with family, friends, or neighbors: 3 or more times per week How often do you get together with friends or relatives: 3 or more times per week How often do you attend judaism or synagogue services: never Do you belong to any clubs or organizations such as judaism groups unions, fraternal or athletic groups, or school groups: no Total score: 1 Score interpretation: A score of less than or equal to 1 indicates the most socially isolated. Little interest or pleasure in doing things: not at all Feeling down, depressed, or hopeless: not at all Feel stressed/tense/nervous/anxious/difficulty sleeping: only a little Due to disability, difficulty making decisions: No Do you think of yourself as: straight/heterosexual Gender Identity: female Exam Constitutional Vital Signs, click to edit/add: Last Vital Signs Temp 98.2 F 01/31/25 12:08 Pulse 60 01/31/25 12:08 Resp 18 01/31/25 12:08 BP 118/61 01/31/25 12:08 Pulse Ox 93 L 01/31/25 12:08 O2 Del Method Nasal Cannula 01/31/25 12:08 O2 Flow Rate 1 01/31/25 12:08 Common normals: oriented x3, healthy appearing, alert and well nourished General appearance: in distress HENPA Common normals: normocephalic and head/scalp atraumatic Eye Common normals: EOMs intact bilaterally Respiratory Effort & inspection: audible wheezes Cardio Common normals: regular rate, regular rhythm, S1 normal heart sound and S2 normal heart sound GI Common normals: Normal to inspection, nondistended, normoactive bowel sounds present, soft to palpation and non-tender Extremity Common normals: normal to inspection and full ROM Neuro Common normals: oriented x3, CN's II-XII intact bilaterally, moves all extremities and no focal motor deficits Psych Appearance: grossly normal Course Course Hospital Course: Mrs. Monae is a 59-year-old female who came in with shortness of breath and tachypnea. She was found to have the following: Acute COPD exacerbation Acute bronchitis Acute diastolic heart failure. Acute heart failure with preserved ejection fraction Acute hypoxic respiratory failure, multifactorial secondary to above. Saturation dropping to mid 80s with exertion secondary to above. CTA does not show any pulmonary embolism. I also suspect that the patient has restrictive lung disease secondary to morbid obesity. She may have also pulmonary hypertension. Last echo completed a year ago was inconclusive in relation to right sided pressure to confirm pulmonary hypertension. Patient had stress test 4 months ago which showed normal ejection fraction I accepted pt to admit patient to the medical floor. I started patient on intravenous diuretics, Solu-Medrol, albuterol and Atrovent. Reduced dose of beta-george to reduce risk of bronchospasm I start patient on doxycycline and cough medication. Counseling about tobacco addiction and the need to stop smoking. Requested to check COVID-19, RSV and influenza. All came back negative. Other potential viruses such as parainfluenza, adenovirus, human metapneumovirus could not be tested here at [facility] Patient is feeling much better. Patient is 5.7 L negative balance. Patient will be discharged home on combination of cardio pulmonary medication. Oxygenation is improved. Currently on 1 L. We will evaluate for home oxygen. We will arrange for oxygen if she qualifies. Patient will be instructed to weigh herself every Monday and Patient will be instructed to take Bumex twice a day if she gains more than 3 pounds in 1 week. Hypertension and diabetes Resume preadmission home medications with the exception of reducing beta-george dose to reduce bronchospasm. Furthermore, her heart rate is 60 and recent cardiac cath completed in [place] does not show any coronary artery disease. Accu-Chek with sliding scale coverage For blood pressure and blood sugar control. CKD stage III dating back to March 2024 which is the oldest kidney function I have any system. Likely chronic and at baseline. Lower extremities edema Venous study rule out DVT. This came back negative for DVT. DVT prophylaxis with Lovenox 40 mg twice a day. Tobacco addiction Counseling and education to quit smoking NicoDerm patch Anemia, no evidence of acute blood loss. Patient will likely require to have anemia workup to be done in the outpatient setting to be handled by PCP in collaboration with other needed outpatient providers. This may include but not limited to EGD, colonoscopy, referral to see hematology and other needed age-appropriate cancer screening. Chronic, subacute medical conditions not listed above, abnormal labs and imaging. These would need to be addressed. Could be addressed later on or in the outpatient setting by PCP collaboration with other needed outpatient providers when time and condition are appropriate. Patient has multiple complex medical issues as listed above and others that are not listed. All appear to be stable. Patient is feeling great and requesting to be discharged home. Oxygen saturation had improved. Currently on 1 L. Evaluate for home oxygen. I do not have any clear or strong clinical justification to extend inpatient hospitalization. Patient however will require close and frequent monitoring as well as additional work-up, investigation and therapeutic intervention that could take place from this point on post discharge. That is to prevent relapse, decompensation, rehospitalization and other medical implications.. I instructed patient to ask her primary care doctor to obtain [facility] record entirely to address abnormalities seen on labs and imaging that I have and have not addressed during this hospitalization, follow-up on pending blood work, imaging and pathology is if available and to follow-up on needed medical care in the outpatient setting. Vital Signs Vital signs: Vital Signs Pulse Oximetry 96 01/29/25 04:26 Temperature 98.2 F 01/31/25 12:08 Pulse Rate 60 01/31/25 12:08 Respiratory Rate 18 01/31/25 12:08 Blood Pressure 118/61 01/31/25 12:08 Pulse Oximetry 93 L 01/31/25 12:08 Oxygen Delivery Method Nasal Cannula 01/31/25 12:08 Oxygen Delivery Flow Rate 1 01/31/25 12:08 MDM - SOB/Dyspnea MDM Narrative Medical decision making narrative: patient presents with 3 day history of worsening dyspnea. Past history of COPD and CHF. on exam she has diffuse wheezing and appears to have COPD exacerbation. DD also included CHF and pneumonia. She was given solumedrol and duoneb enroute by [facility]. A 2nd duoneb treatment ordered along with cxray and labs cxray with ? lobar pneumonia RLL. clinically she is afebrile and has diffuse bronchospasm. No obvious crackles on exam CT chest ordered patient returns from CT and states she is feeling better. No obvious distress but still has diffuse wheeze on exam. labs with normal troponin and mildly elevated BNP. CTA pending at change of shift. will transfer care to oncoming physician at change of shift Dr Fishman Lab Data Labs: Lab Results 01/29/25 01/29/25 01/29/25 Range/Units 04:35 07:13 13:11 WBC 7.3 (4.0-11.0) 10^3/uL RBC 3.91 L (4.20-5.40) 10^6/uL Hgb 11.2 L (12.0-16.0) g/dL Hct 34.4 L (36.0-48.0) % MCV 88.0 (81.0-99.0) fL MCH 28.6 (26.7-34.0) pg MCHC 32.6 (29.9-35.2) g/dL RDW 13.8 (11.0-15.0) % Plt Count 255 (150-450) 10^3/uL MPV 10.5 (9.5-13.5) fL Neut % (Auto) 78.8 H (43.0-75.0) % Lymph % (Auto) 8.3 L (20.5-60.0) % [place] % (Auto) 10.5 (1.7-12.0) % Eos % (Auto) 1.7 (0.9-7.0) % Baso % (Auto) 0.6 (0.2-2.0) % Neut # (Auto) 5.7 (1.4-6.5) 10^3/uL Lymph # (Auto) 0.6 L (1.2-3.8) 10^3/uL [place] # (Auto) 0.8 (0.3-0.8) 10^3/uL Eos # (Auto) 0.1 (0.0-0.7) 10^3/uL Baso # (Auto) 0.0 (0.0-0.1) 10^3/uL Abs Immat Gran (auto) 0.01 (0.00-0.03) 10^3/uL Imm/Tot Granulo (auto) 0.1 (0.0-0.5) % Sodium 141 (136-145) mmol/L Potassium 3.7 (3.5-5.1) mmol/L Chloride 103 (98-107) mmol/L Carbon Dioxide 29.7 (21.0-32.0) mmol/L Anion Gap 12.0 BUN 21.0 H (7.0-18.0) mg/dL Creatinine 1.31 H (0.55-1.02) mg/dL Est GFR ( Amer) 50 L (>=60 mL/min/1.73m^2) Est GFR (Non-Af Amer) 41 L (>=60 mL/min/1.73m^2) BUN/Creatinine Ratio 16.0 Glucose 96 (74-106) mg/dL Calcium 9.4 (8.5-10.1) mg/dL Troponin I High Sens 8.3 9.7 (4.0-51.3) pg/mL NT-Pro-B Natriuret Pep 1064.0 H (<=900.0) pg/mL Influenza Type A Ag Negative Influenza Type B Ag Negative RSV Antigen Not detected (NOT DETECTE) SARS-CoV-2 Ag (CV2AG) Negative (NEGATIVE) POC Glucose (74-106) mg/dL 01/29/25 Range/Units 13:16 WBC (4.0-11.0) 10^3/uL RBC (4.20-5.40) 10^6/uL Hgb (12.0-16.0) g/dL Hct (36.0-48.0) % MCV (81.0-99.0) fL MCH (26.7-34.0) pg MCHC (29.9-35.2) g/dL RDW (11.0-15.0) % Plt Count (150-450) 10^3/uL MPV (9.5-13.5) fL Neut % (Auto) (43.0-75.0) % Lymph % (Auto) (20.5-60.0) % [place] % (Auto) (1.7-12.0) % Eos % (Auto) (0.9-7.0) % Baso % (Auto) (0.2-2.0) % Neut # (Auto) (1.4-6.5) 10^3/uL Lymph # (Auto) (1.2-3.8) 10^3/uL [place] # (Auto) (0.3-0.8) 10^3/uL Eos # (Auto) (0.0-0.7) 10^3/uL Baso # (Auto) (0.0-0.1) 10^3/uL Abs Immat Gran (auto) (0.00-0.03) 10^3/uL Imm/Tot Granulo (auto) (0.0-0.5) % Sodium (136-145) mmol/L Potassium (3.5-5.1) mmol/L Chloride (98-107) mmol/L Carbon Dioxide (21.0-32.0) mmol/L Anion Gap BUN (7.0-18.0) mg/dL Creatinine (0.55-1.02) mg/dL Est GFR ( Amer) (>=60 mL/min/1.73m^2) Est GFR (Non-Af Amer) (>=60 mL/min/1.73m^2) BUN/Creatinine Ratio Glucose (74-106) mg/dL Calcium (8.5-10.1) mg/dL Troponin I High Sens (4.0-51.3) pg/mL NT-Pro-B Natriuret Pep (<=900.0) pg/mL Influenza Type A Ag Influenza Type B Ag RSV Antigen (NOT DETECTE) SARS-CoV-2 Ag (CV2AG) (NEGATIVE) POC Glucose 132 H (74-106) mg/dL Imaging Data CT scan - chest: Radiologist's impression: ITS Impressions Chest X-Ray 01/29/25 04:50 IMPRESSION: NO SIGNIFICANT CHANGE FROM THE PRIOR Impression dictated by: Mami Rodrigez M.D. 01/29/2025 7:36 AM Dictation Location: [employer] Electronically authenticated by: [id number] Y Date: 01/29/2025 07:36 Chest CTA 01/29/25 05:33 IMPRESSION: NO OBVIOUS CENTRAL PULMONARY EMBOLISM HOWEVER EVALUATION IS OTHERWISE LIMITED BY RESPIRATORY MOTION. BORDERLINE CARDIOMEGALY AND MINOR INTERSTITIAL CHANGE. CLINICAL CORRELATION IS SUGGESTED TO ANY POSSIBILITY OF FAILURE.. OBSTRUCTIVE LUNG DISEASE. BASILAR ATELECTASIS AND/OR SCARRING Impression dictated by: Mami Rodrigez M.D. 01/29/2025 8:25 AM Dictation Location: [employer] Electronically authenticated by: [id number] Y Date: 01/29/2025 08:25 Discharge Plan Discharge Chief Complaint: Shortness of Breath/Dyspnea Clinical Impression: COPD exacerbation Patient Disposition: Admitted as Observation Time of Disposition Decision: 08:48 Condition: Fair Discharge Date/Time: 01/29/25 10:40 Documented by User: Ricky Fishman DO 01/29/25 10:36 HPI - SOB/Dyspnea General Chief Complaint: Shortness of Breath/Dyspnea Stated Complaint: SOB Time Seen by Provider: 01/29/25 04:35 Related Data Home Medications ?Medication ?Instructions ?Recorded ?Confirmed buspirone 15 mg tablet 15 mg PO BID 03/23/24 01/29/25 donepezil 10 mg tablet 10 mg PO DAILY 03/23/24 01/29/25 duloxetine 60 mg capsule,delayed 60 mg PO DAILY 03/23/24 01/29/25 release ferrous sulfate 325 mg (65 mg 325 mg PO DAILY 03/23/24 01/29/25 iron) tablet (FeroSul) lamotrigine 100 mg tablet 100 mg PO DAILY 04/08/24 01/29/25 cetirizine 10 mg tablet 10 mg PO .QD 04/09/24 01/29/25 cholecalciferol (vitamin D3) 125 5,000 unit PO .QD 04/09/24 01/29/25 mcg (5,000 unit) tablet amlodipine 10 mg tablet 10 mg PO .qd 01/29/25 01/29/25 cyanocobalamin (vitamin B-12) 1,000 mcg PO DAILY 01/29/25 01/29/25 1,000 mcg tablet dapagliflozin propanediol 10 mg 10 mg PO DAILY 01/29/25 01/29/25 tablet (Farxiga) hydroxyzine HCl 25 mg tablet 25 mg PO Q8H PRN anxiety 01/29/25 01/29/25 losartan 25 mg tablet 25 mg PO DAILY 01/29/25 01/29/25 magnesium oxide 400 mg (241.3 mg 400 mg PO DAILY 01/29/25 01/29/25 magnesium) tablet omeprazole 40 mg capsule,delayed 40 mg PO DAILY 01/29/25 01/29/25 release Previous Rx's ?Medication ?Instructions ?Recorded prednisone 20 mg tablet 40 mg (2 x 20 mg) PO DAILY 4 days 01/29/25 #8 tabs acetaminophen 325 mg tablet 325 mg PO Q6H PRN fever or pain 01/31/25 (Tylenol) #120 tabs albuterol sulfate 90 mcg/actuation 2 puff inhalation Q6H PRN 01/31/25 aerosol inhaler shortness of breath or wheezing #6.7 grams budesonide-formoterol HFA 160 1 inh inhalation BID #10.2 grams 01/31/25 mcg-4.5 mcg/actuation aerosol inhaler (Symbicort) bumetanide 1 mg tablet 1 mg PO DAILY #60 tabs 01/31/25 carvedilol 25 mg tablet 12.5 mg (1/2 x 25 mg) PO Q12H #0 01/31/25 tabs ipratropium 0.5 mg-albuterol 3 mg 3 ml inhalation RTTID PRN 01/31/25 (2.5 mg base)/3 mL nebulization shortness of breath or wheezing soln #90 mL nicotine 14 mg/24 hr daily 14 mg transdermal Q24H PRN 01/31/25 transdermal patch nicotine withdraw #28 ea Allergies Allergy/AdvReac Type Severity Reaction Status Date / Time pregabalin (From Lyrica) Allergy Intermediate Rash Verified 01/29/25 04:31 sulfamethoxazole (From Allergy Intermediate Rash Verified 01/29/25 04:31 Bactrim) trimethoprim (From Bactrim) Allergy Intermediate Rash Verified 01/29/25 04:31 codeine AdvReac Intermediate Nausea Verified 01/29/25 14:01 [facility] Medical History (Updated 02/04/25 @ 00:00 by ) Normal hysteroscopy ?Z01.89 - Encounter for other specified special examinations (ICD-10) Toe amputee ?Z89.429 - Acquired absence of other toe(s), unspecified side (ICD-10) Morbid obesity with BMI of 60.0-69.9, adult ?E66.01 - Morbid (severe) obesity due to excess calories (ICD-10) ?Z68.44 - Body mass index [BMI] 60.0-69.9, adult (ICD-10) Iron deficiency anemia ?D50.9 - Iron deficiency anemia, unspecified (ICD-10) Primary hypertension ?I10 - Essential (primary) hypertension (ICD-10) COPD (chronic obstructive pulmonary disease) ?J44.9 - Chronic obstructive pulmonary disease, unspecified (ICD-10) Tobacco abuse ?Z72.0 - Tobacco use (ICD-10) Surgical History (Updated 01/29/25 @ 10:38 by Rossana Edouard) H/O hysterectomy for benign disease ?Z90.710 - Acquired absence of both cervix and uterus (ICD-10) H/O left heart catheterization by ventricular puncture ?Z98.890 - Other specified postprocedural states (ICD-10) Family History (Updated 01/29/25 @ 11:29 by Alisha Leroy) Father Family history of CHF (congestive heart failure) Family history of hypertension Mother Family history of COPD (chronic obstructive pulmonary disease) Family history of cancer Family history of diabetes mellitus Family history of hypertension Social History (Updated 01/29/25 @ 11:30 by Alisha Leroy) Within the past year, how often did you have a drink containing alcohol: never Score interpretation: A score less than 3 is consistent with normal alcohol consumption. 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: No Highest level of school completed/degree received: high school graduate Do you want help with school or training: No Are you now , , , , never or living with a partner: In a typical week, how many times do you talk on the telephone with family, friends, or neighbors: 3 or more times per week How often do you get together with friends or relatives: 3 or more times per week How often do you attend judaism or synagogue services: never Do you belong to any clubs or organizations such as judaism groups unions, [employer] or athletic groups, or school groups: no Total score: 1 Score interpretation: A score of less than or equal to 1 indicates the most socially isolated. Little interest or pleasure in doing things: not at all Feeling down, depressed, or hopeless: not at all Feel stressed/tense/nervous/anxious/difficulty sleeping: only a little Due to disability, difficulty making decisions: No Do you think of yourself as: straight/heterosexual Gender Identity: female Exam Constitutional Vital Signs, click to edit/add: Last Vital Signs Temp 98.2 F 01/31/25 12:08 Pulse 60 01/31/25 12:08 Resp 18 01/31/25 12:08 BP 118/61 01/31/25 12:08 Pulse Ox 93 L 01/31/25 12:08 O2 Del Method Nasal Cannula 01/31/25 12:08 O2 Flow Rate 1 01/31/25 12:08 Course Course Hospital Course: Mrs. Monae is a 59-year-old female who came in with shortness of breath and tachypnea. She was found to have the following: Acute COPD exacerbation Acute bronchitis Acute diastolic heart failure. Acute heart failure with preserved ejection fraction Acute hypoxic respiratory failure, multifactorial secondary to above. Saturation dropping to mid 80s with exertion secondary to above. CTA does not show any pulmonary embolism. I also suspect that the patient has restrictive lung disease secondary to morbid obesity. She may have also pulmonary hypertension. Last echo completed a year ago was inconclusive in relation to right sided pressure to confirm pulmonary hypertension. Patient had stress test 4 months ago which showed normal ejection fraction I accepted pt to admit patient to the medical floor. I started patient on intravenous diuretics, Solu-Medrol, albuterol and Atrovent. Reduced dose of beta-george to reduce risk of bronchospasm I start patient on doxycycline and cough medication. Counseling about tobacco addiction and the need to stop smoking. Requested to check COVID-19, RSV and influenza. All came back negative. Other potential viruses such as parainfluenza, adenovirus, human metapneumovirus could not be tested here at [facility] Patient is feeling much better. Patient is 5.7 L negative balance. Patient will be discharged home on combination of cardio pulmonary medication. Oxygenation is improved. Currently on 1 L. We will evaluate for home oxygen. We will arrange for oxygen if she qualifies. Patient will be instructed to weigh herself every Monday and Patient will be instructed to take Bumex twice a day if she gains more than 3 pounds in 1 week. Hypertension and diabetes Resume preadmission home medications with the exception of reducing beta-george dose to reduce bronchospasm. Furthermore, her heart rate is 60 and recent cardiac cath completed in [place] does not show any coronary artery disease. Accu-Chek with sliding scale coverage For blood pressure and blood sugar control. CKD stage III dating back to March 2024 which is the oldest kidney function I have any system. Likely chronic and at baseline. Lower extremities edema Venous study rule out DVT. This came back negative for DVT. DVT prophylaxis with Lovenox 40 mg twice a day. Tobacco addiction Counseling and education to quit smoking NicoDerm patch Anemia, no evidence of acute blood loss. Patient will likely require to have anemia workup to be done in the outpatient setting to be handled by PCP in collaboration with other needed outpatient providers. This may include but not limited to EGD, colonoscopy, referral to see hematology and other needed age-appropriate cancer screening. Chronic, subacute medical conditions not listed above, abnormal labs and imaging. These would need to be addressed. Could be addressed later on or in the outpatient setting by PCP collaboration with other needed outpatient providers when time and condition are appropriate. Patient has multiple complex medical issues as listed above and others that are not listed. All appear to be stable. Patient is feeling great and requesting to be discharged home. Oxygen saturation had improved. Currently on 1 L. Evaluate for home oxygen. I do not have any clear or strong clinical justification to extend inpatient hospitalization. Patient however will require close and frequent monitoring as well as additional work-up, investigation and therapeutic intervention that could take place from this point on post discharge. That is to prevent relapse, decompensation, rehospitalization and other medical implications.. I instructed patient to ask her primary care doctor to obtain [facility] record entirely to address abnormalities seen on labs and imaging that I have and have not addressed during this hospitalization, follow-up on pending blood work, imaging and pathology is if available and to follow-up on needed medical care in the outpatient setting. Vital Signs Vital signs: Vital Signs Pulse Oximetry 96 01/29/25 04:26 Temperature 98.2 F 01/31/25 12:08 Pulse Rate 60 01/31/25 12:08 Respiratory Rate 18 01/31/25 12:08 Blood Pressure 118/61 01/31/25 12:08 Pulse Oximetry 93 L 01/31/25 12:08 Oxygen Delivery Method Nasal Cannula 01/31/25 12:08 Oxygen Delivery Flow Rate 1 01/31/25 12:08 MDM - SOB/Dyspnea MDM Narrative Medical decision making narrative: patient presents with 3 day history of worsening dyspnea. Past history of COPD and CHF. on exam she has diffuse wheezing and appears to have COPD exacerbation. DD also included CHF and pneumonia. She was given solumedrol and duoneb enroute by [facility]. A 2nd duoneb treatment ordered along with cxray and labs cxray with ? lobar pneumonia RLL. clinically she is afebrile and has diffuse bronchospasm. No obvious crackles on exam CT chest ordered patient returns from CT and states she is feeling better. No obvious distress but still has diffuse wheeze on exam. labs with normal troponin and mildly elevated BNP. CTA pending at change of shift. will transfer care to oncoming physician at change of shift Dr Fishman ATTENDING ADDENDUM Dr. Fishman: Patient signed out to me by Dr. Stallworth pending CT angio. CT independently viewed and interpreted by myself and radiology demonstrated no evidence of PE, pneumonia, or other acute process. On reevaluation, the patient states she feels improved. However, while ambulating to the bathroom, she desaturated to 84% on room air. She is not currently on home oxygen. She is still having significant wheezing on exam. An additional DuoNeb was ordered. She was given IV Solu-Medrol and a dose of oral doxycycline. I do believe she warrants admission to the observation unit for further management of COPD. I discussed the patient with Dr. Bro who accepted the patient to his service. FINAL IMPRESSION: #Acute hypoxia secondary to COPD exacerbation DISPOSITION: Admitted to the observation unit CONDITION: Fair Medical Records Attestation: I reviewed the patient's medical records. Lab Data Attestation: I reviewed the patient's lab results. Labs: Lab Results 01/29/25 01/29/25 01/29/25 Range/Units 04:35 07:13 13:11 WBC 7.3 (4.0-11.0) 10^3/uL RBC 3.91 L (4.20-5.40) 10^6/uL Hgb 11.2 L (12.0-16.0) g/dL Hct 34.4 L (36.0-48.0) % MCV 88.0 (81.0-99.0) fL MCH 28.6 (26.7-34.0) pg MCHC 32.6 (29.9-35.2) g/dL RDW 13.8 (11.0-15.0) % Plt Count 255 (150-450) 10^3/uL MPV 10.5 (9.5-13.5) fL Neut % (Auto) 78.8 H (43.0-75.0) % Lymph % (Auto) 8.3 L (20.5-60.0) % [place] % (Auto) 10.5 (1.7-12.0) % Eos % (Auto) 1.7 (0.9-7.0) % Baso % (Auto) 0.6 (0.2-2.0) % Neut # (Auto) 5.7 (1.4-6.5) 10^3/uL Lymph # (Auto) 0.6 L (1.2-3.8) 10^3/uL [place] # (Auto) 0.8 (0.3-0.8) 10^3/uL Eos # (Auto) 0.1 (0.0-0.7) 10^3/uL Baso # (Auto) 0.0 (0.0-0.1) 10^3/uL Abs Immat Gran (auto) 0.01 (0.00-0.03) 10^3/uL Imm/Tot Granulo (auto) 0.1 (0.0-0.5) % Sodium 141 (136-145) mmol/L Potassium 3.7 (3.5-5.1) mmol/L Chloride 103 (98-107) mmol/L Carbon Dioxide 29.7 (21.0-32.0) mmol/L Anion Gap 12.0 BUN 21.0 H (7.0-18.0) mg/dL Creatinine 1.31 H (0.55-1.02) mg/dL Est GFR ( Amer) 50 L (>=60 mL/min/1.73m^2) Est GFR (Non-Af Amer) 41 L (>=60 mL/min/1.73m^2) BUN/Creatinine Ratio 16.0 Glucose 96 (74-106) mg/dL Calcium 9.4 (8.5-10.1) mg/dL Troponin I High Sens 8.3 9.7 (4.0-51.3) pg/mL NT-Pro-B Natriuret Pep 1064.0 H (<=900.0) pg/mL Influenza Type A Ag Negative Influenza Type B Ag Negative RSV Antigen Not detected (NOT DETECTE) SARS-CoV-2 Ag (CV2AG) Negative (NEGATIVE) POC Glucose (74-106) mg/dL 01/29/25 Range/Units 13:16 WBC (4.0-11.0) 10^3/uL RBC (4.20-5.40) 10^6/uL Hgb (12.0-16.0) g/dL Hct (36.0-48.0) % MCV (81.0-99.0) fL MCH (26.7-34.0) pg MCHC (29.9-35.2) g/dL RDW (11.0-15.0) % Plt Count (150-450) 10^3/uL MPV (9.5-13.5) fL Neut % (Auto) (43.0-75.0) % Lymph % (Auto) (20.5-60.0) % [place] % (Auto) (1.7-12.0) % Eos % (Auto) (0.9-7.0) % Baso % (Auto) (0.2-2.0) % Neut # (Auto) (1.4-6.5) 10^3/uL Lymph # (Auto) (1.2-3.8) 10^3/uL [place] # (Auto) (0.3-0.8) 10^3/uL Eos # (Auto) (0.0-0.7) 10^3/uL Baso # (Auto) (0.0-0.1) 10^3/uL Abs Immat Gran (auto) (0.00-0.03) 10^3/uL Imm/Tot Granulo (auto) (0.0-0.5) % Sodium (136-145) mmol/L Potassium (3.5-5.1) mmol/L Chloride (98-107) mmol/L Carbon Dioxide (21.0-32.0) mmol/L Anion Gap BUN (7.0-18.0) mg/dL Creatinine (0.55-1.02) mg/dL Est GFR ( Amer) (>=60 mL/min/1.73m^2) Est GFR (Non-Af Amer) (>=60 mL/min/1.73m^2) BUN/Creatinine Ratio Glucose (74-106) mg/dL Calcium (8.5-10.1) mg/dL Troponin I High Sens (4.0-51.3) pg/mL NT-Pro-B Natriuret Pep (<=900.0) pg/mL Influenza Type A Ag Influenza Type B Ag RSV Antigen (NOT DETECTE) SARS-CoV-2 Ag (CV2AG) (NEGATIVE) POC Glucose 132 H (74-106) mg/dL Imaging Data CT scan - chest: Attestation: I personally reviewed and interpreted this imaging study as follows: Radiologist's impression: ITS Impressions Chest X-Ray 01/29/25 04:50 IMPRESSION: NO SIGNIFICANT CHANGE FROM THE PRIOR Impression dictated by: Mami Rodrigez M.D. 01/29/2025 7:36 AM Dictation Location: [id number]-02 Electronically authenticated by: [id number] Y Date: 01/29/2025 07:36 Chest CTA 01/29/25 05:33 IMPRESSION: NO OBVIOUS CENTRAL PULMONARY EMBOLISM HOWEVER EVALUATION IS OTHERWISE LIMITED BY RESPIRATORY MOTION. BORDERLINE CARDIOMEGALY AND MINOR INTERSTITIAL CHANGE. CLINICAL CORRELATION IS SUGGESTED TO ANY POSSIBILITY OF FAILURE.. OBSTRUCTIVE LUNG DISEASE. BASILAR ATELECTASIS AND/OR SCARRING Impression dictated by: Mami Rodrigez M.D. 01/29/2025 8:25 AM Dictation Location: [place] [address] Electronically authenticated by: [id number] Y Date: 01/29/2025 08:25 ECG Data Attestation: I personally reviewed and interpreted this ECG as follows: Discharge Plan Discharge Chief Complaint: Shortness of Breath/Dyspnea Clinical Impression: COPD exacerbation Patient Disposition: Admitted as Observation Time of Disposition Decision: 08:48 Condition: Fair Discharge Date/Time: 01/29/25 10:40
--- NOTE | 2025-01-29 05:07 | PC.NURSE ---
this patient just returned form x-ray dept, this patient is aware we are still waiting on respiratory therapist to arrive to give her breathing treatment. this patient voices no concerns, needs and shows no signs of distress
--- NOTE | 2025-01-29 05:11 | ECG_ITS ---
The [facility] Test Date: 2025-01-29 Pat Name: DANIELLE MONTANA Department: Room: - Gender: Female [employer]: : [id number] Requested By: [id number] Order Number: [id number] Reading MD: EDUARDO JOSHI M.D. Measurements Intervals [place] Rate: 58 P: 61 VT: 174 QRS: 1 QRSD: 90 T: 44 QT: 436 QTc: 433 Interpretive Statements 1100 Sinus rhythm 9110 normal ECG Compared to ECG 01/16/2025 17:46:11 Poor R-wave progression no longer present Electronically Signed On 01-29-2025 7:58:50 EDT by EDUARDO JOSHI M.D.
[2025-01-29 05:14] LABS: Anion Gap 12.0; Blood Urea Nitrogen 21.0 mg/dL (7.0-18.0); Calcium 9.4 mg/dL (8.5-10.1); Carbon Dioxide 29.7 mmol/L (21.0-32.0); Chloride 103 mmol/L (98-107); Estimated GFR (African America 50 (>=60 mL/min/1.73m^2); Estimated GFR (Non-African Ame 41 (>=60 mL/min/1.73m^2); Glucose 96 mg/dL (74-106); NT Pro B Type Natriuretic Pept 1064.0 pg/mL (<=900.0); Potassium 3.7 mmol/L (3.5-5.1); Sodium 141 mmol/L (136-145)
[2025-01-29] MEDS: IPRATROPIUM/ALBUTEROL SULFATE 3 ML AMPUL.NEB IH ×5 (05:17→20:37)
--- NOTE | 2025-01-29 05:33 | CT_ITS ---
The [address] [address] Patient Name: DANIELLE MONTANA MRN: [id number] date: 1965 Sex: F Assigned Patient Location: ED.MAIN Current Patient Location: ED.MAIN Accession/Order Number: [id number] Exam Date: 01/29/2025 06:14 Report Date: 01/29/2025 08:25 At the request of: QUYNH ARCHER MD Procedure: CT angio chest CT PULMONARY ANGIOGRAM WITH CONTRAST CLINICAL HISTORY: short of breath COMPARISON: 04/08/2024 TECHNIQUE: Spiral images were obtained through the chest following intravenous administration of 100 mL of Omnipaque 350. Images were reviewed using both narrow and wide window settings. Sagittal, coronal and 3 D volume-rendered reconstructions were performed and reviewed. This CT exam was performed using one or more following dose reduction techniques: Automated exposure control, adjustment of the mA and/or kV according to patient size, or use of iterative reconstruction technique. FINDINGS: The heart is borderline enlarged. There is no pericardial effusion. No aortic aneurysm or dissection is seen. There is adequate opacification of the pulmonary arteries. No central emboli are identified however evaluation of peripheral branches is limited by respiratory motion. Similar mediastinal lymph nodes are visualized. No hilar adenopathy is noted. There is dextroscoliotic curvature and endplate spurring at the spine. Respiratory motion also limits evaluation of lung parenchyma. There are airspace lucencies and subpleural blebs. There may be minor interstitial prominence. The right hemidiaphragm is slightly elevated. There is adjacent atelectasis. Additional minimal scarring or atelectasis is seen. No other focal consolidation, pleural effusion or pneumothorax is noted. There is a right basilar calcified granuloma. Limited cuts through the upper abdomen show no contributory abnormality. CT/CT angio chest IMPRESSION: NO OBVIOUS CENTRAL PULMONARY EMBOLISM HOWEVER EVALUATION IS OTHERWISE LIMITED BY RESPIRATORY MOTION. BORDERLINE CARDIOMEGALY AND MINOR INTERSTITIAL CHANGE. CLINICAL CORRELATION IS SUGGESTED TO ANY POSSIBILITY OF FAILURE.. OBSTRUCTIVE LUNG DISEASE. BASILAR ATELECTASIS AND/OR SCARRING Impression dictated by: Mami Rodrigez M.D. 01/29/2025 8:25 AM Dictation Location: [place] [address] Electronically authenticated by: [id number] Y Date: 01/29/2025 08:25
--- NOTE | 2025-01-29 09:18 | PC.NURSE ---
PT WAS WANTING TO BEE DISCHARGED HOME. PT USED RESTROOM AND WALKED BACK TO ROOM. SPO2 84% ON ROOM AIR. PHYSICIAN NOTIFIED AND PT PLACED BACK ON 3L O2 NC
[2025-01-29] MEDS: METHYLPREDNISOLONE SOD SUCC PF 40 MG/ML VIAL IVP ×2 (09:50→20:33)
[2025-01-29] MEDS: DOXYCYCLINE MONOHYDRATE 100 MG CAPSULE PO ×2 (09:50→20:33)
--- OUTSIDE RECORDS SUMMARY | 2025-01-29 10:55 | XMS_ITS | CCD ---
Author Organization [facility] CliniSymd Care Team Providers Care Food Quality Technician Name Role Phone Tanja, Leda Unavailable Unavailable Unavailable Unavailable Unavailable Unavailable Unavailable Unavailable Tanja, Leda Unavailable Unavailable Tanja, Leda Unavailable Unavailable Unavailable Unavailable Unavailable Heath Kirkpatrick Attending Gisselle vailable Heath Kirkpatrick Referring Gisselle vailable Rumschlag, Mignon Primary Care Provider [phone] TIM SHARMA Referring Unavailab le RUMSCHLAG, MIGNON Primary Care Unavailable RAVTIM ORTIZ Referring Unavailab le RUMSCHLAG, MIGNON Primary Care Unavailable ALLAN SHARMAMPSAGER Referring Unavailab le RUMSCHLAG, MIGNON Primary Care Unavailable Tanja SUPERVISOR TYPE PHOTOGRAPHY, Leda Unavailable NICOLE, DR VU Novoa Attending Unavailable NICOLE, DR VU Novoa Admitting Unavailable [facility] Primary Care Unavailable LIYAH, DR EBEN Couch Consulting Unavailblanca KAT, DR FRIEDA Tobar Consulting Unavailblanca e JULISSA, DR LO Hdz Consulting Unavailable NICOLE, DR VU Novoa Consulting Unavailable LATONIA, DR KHAN Consulting Unavailable NANCI BEEBE Attending Unavailable NANCI BEEBE Admitting Unavailable JULISSA, DR LO Hdz Consulting Unavailable [facility] Primary Care Unavailable NANCI BEEBE Consulting Unavailable QUYNH ARCHER Attending Unavailable QUYNH ARCHER Admitting Unavailable [facility] Primary Care Unavailable QUYNH ARCHER Consulting Unavailable [...] able Shawn Zamora MD Primary Care Provider [phone] EDUARDO SAUNDERS Admitting Unavailable ADI EDUARDO Attending [...] Nausea And Vomiting, GI intolerance, Vomiting [facility] (4 sources) pregabalin; Translations: [Lyrica] Drug Allergy Altered Mental State [facility] (4 sources) sulfamethoxazole / trimethoprim; Translations: [Bactrim] Drug Allergy [facility] (4 sources) -No Environmental Allergies; Translations: [-No Environmental Allergies] Allergy to substance (disorder) [facility] (2 sources) -No Known Food Allergies Allergy to substance (disorder) [facility] (3 sources) NSAIDs Propensity to adverse reactions to drug 02-24-20 15 Other (See Comments) [place] (20 sources) pregabalin; Translations: [PREGABALIN] Drug Allergy 01-19-20 12 Other (See Comments), Unknown [place] (20 sources) Sulfamethoxazole / Trimethoprim; Translations: [SULFAMETHOXAZOLE-T RIMETHOPRIM] Drug Allergy 11-15-19 16 H[place] (1 source) pregabalin Drug Allergy 12-31-19 22 [facility] (1 source) Sulfamethoxazole / Trimethoprim Drug Allergy 04-15-20 22 [facility] Medications Current Medications Medication Drug Class(es) Dates Sig (Normalized) Sig (Original) [id number] 200 actuat albuterol 0.09 mg/actuat metered dose [...] Start: 05-19-2018 End: 05-19-2018 VENTOLIN HFA 90MCG/ACTUAT ID SC 05/19/2018 - 05/19/2018 Provider: End: 10-14-2023 [...] 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 take 1 tablet by [facility] once daily donepezil (ARICEPT) 10 [...] Active Start: 10-26-2023 take 1 capsule by [facility] in the morning DULoxetine (CYMBALTA) 30 mg capsule Take 1 capsule (30 mg total) by mouth in the morning. 30 capsule 10/26/2023 Active Start: 07-19-2018 DULoxetine HCl 30MG Oral Capsule, delayed-release particles 07/19/2018 Provider: Start: 05-19-2018 End: 05-19-2018 DULOXETINE 30MG MISC 019 - 05/19/2018 Provider: Start: 05-19-2018 End: 05-19-2018 [facility] - 05/19[facility]2018 Provider: Start: 03-07-2018 take 1 capsule by mo [facility] once daily duloxetine 30 mg oral capsule,delayed release(DR/EC) 03/07/2018 take 1 capsule (30 mg) by oral route once daily, take with 60 mg capsule to equal 90 mg daily Start: 03-07-2018 End: 03-07-2018 DULOXETINE 60MG MISC 018 - 03/07/2018 Provider: Start: 03-07-2018 End: 03-07-2018 DULOXETINE 30MG MISC 018 - 03/07/2018 Provider: Start: 08-16-2017 take 1 capsule by mo [facility] once daily 60 mg, oral, Daily, First dose on 10/15/23 at 0900, Look-alike/sound-alike medication - verify indication for use. Swallow whole-do not crush or chew. Although the dovetail machine operator does not recommend opening the capsule to facilitate administration, the contents of capsule may be sprinkled on applesauce or in apple juice and swallowed (without chewing) immediately; do not sprinkle contents on chocolate pudding. take 1 capsule by [facility] once daily duloxetine 30 mg oral capsule,delayed release(DR/EC) take 1 capsule (30 mg) by oral route once daily ergocalciferol 1.25 mg oral capsule (4 sources) Provitamin D2 Compound Start: 07-19-2018 Ergocalciferol [id number] Oral Capsule, conventional 07/19/2018 Provider: Start: 09-14-2017 take 1 capsule by [facility] every week Vitamin D2 50,000 unit [...] 07/12/2018 - 07/20/2018 Provider: Leda Agrawal CNP Uqsixbtoygf-Fdhhynxur-Oeqvut (Trelegy Ellipta) 200-62.5-25 MCG/ACT aerosol powder (4 sources) Start: 11-02-2023 take 1 puff(s) by inhalation once daily Caroetifxlm-Nptvwehxl-Uopbdq (Trelegy Ellipta) 200-62.5-25 MCG/ACT aerosol powder Indications: Chronic obstructive pulmonary disease, unspecified COPD type ([facility]) Inhale 1 puff Daily 28 [...] Start: 05-19-2018 End: 05-19-2018 GABAPENTIN 300 mg [facility] 05/19 - 05/19/2018 Provider: Start: 02-13-2018 End: 02-13-2018 Gabapentin 600MG OR TABS - 02/13/2018 Provider: Start: 09-26-2017 take 1 capsule by mo [facility] three times daily gabapentin 300 mg oral [...] Every 4 hours PRN, high blood pressure, [id number], Starting on 10/15/23 at 1020, Look-alike/sound-alike medication [...] Start: 03-13-2018 take 1 capsule by mo [facility] twice daily hydroxyzine pamoate 50 mg oral [...] 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 ([facility]) Take 2.5 tablets (50 mg total) by [...] 1 dose take 2 tablets by mo [facility] every four hours as needed [...] Start: 02-13-2018 End: 02-13-2018 CLINDAMYCIN HCL 300MG [facility] 02/13/2018 - 02/13/2018 Provider: Start: 02-13-2018 End: [...] day with food kit for prep of Ss-18s-riahcqv 2.5 mg recon soln 5 millicurie (1 [...] and after each intermittent use, Starting on [facility] 10/14/23 at 2218 technetium pentetate (DTPA AEROSOL) [...] 09-26-2017 Chronic Other aftercare (2 sources) 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; Translations: [OTH 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 DRUG THERAPY] Onset: 2 Episodic Other aftercare (1 source) terminal system operator (current) use of systemic steroids; Translations: [terminal system operator (current) use of systemic steroids] Onset: 4 Episodic Other circulatory disease (1 source) 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 Mccormick. [facility] Orders Onlyon 12-18-2024 Orders Only [id number] Danielle [place] 1965 F Date Provider Department [place] 12/18/2024 [id number], HISTORICAL [facility] Family History Problem Relation Age of Onset Coronary artery disease Father Family Status - Relation Status Age at Mother Father [facility] 36on 12-10-2024 36 MD Aliya Lundberg MA Great - her s.cr is almost back to normal. Please reassure her. Thanks Spoke to patient, advised patient of lab results per Dr. Mccormick's request. Patient verbalized understanding [facility] 36on 12-09-2024 36 Regarding lab results [...] of care. No new medications per patient [facility] 36 Regarding lab results from 12/05/2024: [...] LM for patient to return my call. [facility] Telephoneon 12-09-2024 Telephone [id number] Danielle [place] 1965 F Date Provider Department Center 12/09/2024 [id number] WOOTEN [facility] Family History Problem Relation Age of Onset Coronary artery disease Father Family Status - Relation Status Age at Mother Father [facility] HPon 12-06-2024 HP History Of Present [...] Resource Strain: Low Risk (02/05/2024) Received from [facility] Overall Financial Resource Strain (CARDIA) Difficulty of Paying Living Expenses: Not very hard Food Insecurity: No Food Insecurity (02/05/2024) Received from [facility] Hunger Vital Sign Worried About Running Out of Food in the Last Year: Never true Ran Out of Food in the Last Year: Never true Transportation Needs: Unmet Transportation Needs (02/05/2024) Received from [facility] PRAPARE - Transportation Lack of Transportation (Medical): Yes Lack of Transportation (Non-Medical): No Physical Activity: Not on file Stress: Not on file Social Connections: Socially Isolated (02/05/2024) Received from [facility] Social Connection and Isolation Panel [NHANES] Frequency of Communication with Friends and Family: Twice a week Frequency of Social Gatherings with Friends and Family: Never Attends Hindu Services: Never Active Member of Clubs or Organizations: No Attends Club or Organization Meetings: Never Marital Status: Intimate Partner Violence: Not At Risk (05/23/2024) Humiliation, Afraid, Rape, and Kick questionnaire Fear of Current or Ex-Partner: No Emotionally Abused: No Physically Abused: No Sexually Abused: No Housing Stability: Unknown (02/05/2024) Received from [facility] Housing Stability Vital Sign Unable to Pay [...] and agreed to proceed. 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 Normal [facility] NURSNOTEon 12-06-2024 NURSNOTE RN educated pt [...] any questions or concerns if pt verbalized. [facility] 36on 11-19-2024 36 Regarding stress test [...] it. Lab orders entered and faxed to [facility]. Patient verbalized understanding. [facility] Telephoneon 11-19-2024 Telephone [id number] Courtney Montanadevendra Bar 1965 F Date Provider Department [place] 11/19/2024 928-ALISHA FORDE [facility] Family History Problem Relation Age of Onset Coronary artery disease Father Family Status - Relation Status Age at Mother Father [facility] Orders Onlyon 11-11-2024 Orders Only [id number] Danielle [place] Yosvany 1965 F Date Provider Department [place] 11/11/2024 [id number], HISTORICAL JUAN CARD [facility] Family History Problem Relation Age of Onset Coronary artery disease Father Family Status - Relation Status Age at Mother Father [facility] Office Visiton 10-08-2024 Follow-up visit [id number] Danielle [place] Yosvany 1965 Date Provider Department Center 10/08/2024 271-MEHRDAD MCCORMICK Family History Problem Relation Age of Onset Coronary artery disease Father Family Status - Relation Status Age at Mother Father Level of Service:79946 MI OFFICE/OUTPATIENT ESTABLISHED MOD MDM 30 MIN [facility] 36on 06-11-2024 36 The [facility] is asking you amend your last office visit on 05/20/2024 and document the need for a BP cuff for this patient. Can you do that quick and let me know when it's done? Thank you so much!! :) [facility] Orders Onlyon 06-10-2024 Orders Only [id number] Danielle [place] Yosvany 1965 F Date Provider Department Center 06/10/2024 KEITH TIRADO CARD [facility] Family History Problem Relation Age of Onset Coronary artery disease Father Family Status - Relation Status Age at Father Normal [facility] Telephoneon 05-29-2024 Telephone [id number] DovDanielle mcclendon 1965 F Date Provider Department Center 05/29/2024 271-MEHRDAD MCCORMICK [facility] Family History Problem Relation Age of Onset Coronary artery disease Father Family Status - Relation Status Age at Father Normal [facility] Infusionon 05-23-2024 Infusion [id number] Danielle [place] 1965 F Date Provider Department Center 05/23/2024 [id number] CHAIR 9 DCC INF DCC Family History Problem Relation Age of Onset Coronary artery disease Father Family Status - Relation Status Age at Father Normal [facility] Office Visiton 05-20-2024 Follow-up visit [id number] Danielle [place] 1965 Date Provider Department Center 05/20/2024 271-MEHRDAD MCCORMICK [facility] Family History Problem Relation Age of Onset Coronary artery disease Father Family Status - Relation Status Age at Father Level of Service:82733 MI OFFICE/OUTPATIENT ESTABLISHED MOD MDM 30 MIN [facility] 36on 03-07-2024 36 Called patient to reschedule their appointment scheduled for 03/[address] Daniels Result: left voicemail to reschedule [facility] BASIC METABOLIC PANLon 01-21 Anion gap [Moles/Vol] 9 mmol/L Normal 5-15 [facility] Comment on above: Performed By: #### C BCA, CMP, 87335-2 #### [facility] ([id number]) [address] [place] [address] 83040 Calcium [Mass/Vol] 9.5 mg/dL Normal 8.5-10.5 [facility] Comment on above: Performed By: #### C BCA, CMP, 08680-4 #### [facility] ([id number]) [address] [place] [address] 64401 Chloride [Moles/Vol] 101 mmol/L Normal 98-109 [facility] Comment on above: Performed By: #### C BCA, CMP, 65312-1 #### [facility] ([id number]) [address] [place] [address] 88083 CO2 [Moles/Vol] 31 mmol/L Normal 22-32 [facility] Comment on above: Performed By: #### C EDEL POOLE, 41735-1 #### [facility] ([id number]) [address] [place] [address] 85966 Creatinine [Mass/Vol] 1.63 mg/dL High 0.40-1.00 [facility] Comment on above: Result Comment: METH OD TRACEABLE TO IDMS STANDARD Performed By: #### C EDEL POOLE, 19232-7 #### [facility] ([id number]) [address] [place] [address] 21587 GFR/1.73 sq M.predicted among non-blacks MDRD (S/P/Bld) [Vol rate/Area] 36 mL/min/{1.73_m2} Low >59 [facility] Comment on above: Result Comment: Reported eGFR is based on the CKD-EPI 2020 equation that does not use a race coefficient. Performed By: #### C EDEL POOLE, #### [facility] ([id number]) [address] [place] [address] 68612 Glucose [Mass/Vol] 84 mg/dL Normal 65-99 [facility] Comment on above: Performed By: #### C EDEL POOLE, 94445-8 #### [facility] ([id number]) [address] [place] [address] 25545 Potassium [Moles/Vol] 4.3 mmol/L Normal 3.5-5.0 [facility] Comment on above: Performed By: #### C EDEL POOLE, 84443-2 #### [facility] ([id number]) [address] [place] [address] 28742 Sodium [Moles/Vol] 141 mmol/L Normal 134-146 [facility] Comment on above: Performed By: #### C EDEL POOLE, 37689-5 #### [facility] ([id number]) [address] [place] [address] 78080 Urea nitrogen [Mass/Vol] 34 mg/dL High 5-23 [facility] Comment on above: Performed By: #### C BCA, CMP, 36798-7 #### [facility] ([id number]) [address] [place] [address] [place] [address] BASIC METABOLIC PANLon 01-11 Anion gap [Moles/Vol] 12 mmol/L Normal 5-15 [facility] Comment on above: Performed By: #### 8 9579-7 #### [facility] ([id number]) [address] [place] [address] 97429 Calcium [Mass/Vol] 9.4 mg/dL Normal 8.5-10.5 [facility] Comment on above: Performed By: #### 8 9579-7 #### [facility] ([id number]) [address] [place] [address] 36652 Chloride [Moles/Vol] 104 mmol/L Normal 98-109 [facility] Comment on above: Performed By: #### 8 9579-7 #### [facility] ([id number]) [address] [place] [address] 48142 CO2 [Moles/Vol] 28 mmol/L Normal 22-32 [facility] Comment on above: Performed By: #### 8 9579-7 #### [facility] ([id number]) [address] [place] [address] 77229 Creatinine [Mass/Vol] 1.22 mg/dL High 0.40-1.00 [facility] Comment on above: Result Comment: METH OD TRACEABLE TO IDMS STANDARD Performed By: #### 8 9579-7 #### [facility] ([id number]) [address] [place] [address] [place] [address] GFR/1.73 sq M.predicted among non-blacks MDRD (S/P/Bld) [Vol rate/Area] 51 mL/min/{1.73_m2} Low >59 [facility] Comment on above: Result Comment: Reported eGFR is based on the CKD-EPI 2020 equation that does not use a race coefficient. Performed By: #### 8 9579-7 #### [facility] ([id number]) [address] [place] [address] 50374 Glucose [Mass/Vol] 100 mg/dL High 65-99 [facility] Comment on above: Performed By: #### 8 9579-7 #### [facility] ([id number]) [address] [place] [address] 63318 Potassium [Moles/Vol] 3.8 mmol/L Normal 3.5-5.0 [facility] Comment on above: Performed By: #### 8 9579-7 #### [facility] ([id number]) [address] [place] [address] 12551 Sodium [Moles/Vol] 144 mmol/L Normal 134-146 [facility] Comment on above: Performed By: #### 8 9579-7 #### [facility] ([id number]) [address] [place] [address] 47641 Urea nitrogen [Mass/Vol] 17 mg/dL Normal 5-23 [facility] Comment on above: Performed By: #### 8 9579-7 #### [facility] ([id number]) [address] [place] [address] 77858 COMPLETE BLOOD COUNTon 01-11 Erythrocyte distribution width (RBC) [Ratio] 16.7 % High 11.5-15.0 [facility] Comment on above: Performed By: #### 8 9579-7 #### [facility] ([id number]) [address] [place] [address] 55938 Hematocrit (Bld) [Volume fraction] 33.6 % Low 35-47 [facility] Comment on above: Performed By: #### 8 9579-7 #### [facility] ([id number]) [address] [place] [address] 00665 Hemoglobin (Bld) [Mass/Vol] 11.2 g/dL Low 11.7-15.5 [facility] Comment on above: Performed By: #### 8 9579-7 #### [facility] ([id number]) [address] [place] [address] 38027 MCH (RBC) [Entitic mass] 28.8 pg Normal 27-34 [facility] Comment on above: Performed By: #### 8 9579-7 #### [facility] ([id number]) [address] [place] [address] 94050 MCHC (RBC) [Mass/Vol] 33.3 g/dL Normal 32-36 [facility] Comment on above: Performed By: #### 8 9579-7 #### [facility] ([id number]) [address] [place] [address] 73984 MCV (RBC) [Entitic vol] 87 fL Normal 80-100 [facility] Comment on above: Performed By: #### 8 9579-7 #### [facility] ([id number]) [address] [place] [address] 07739 Platelet mean volume (Bld) [Entitic vol] 9.7 fL Normal 7-12 [facility] Comment on above: Performed By: #### 8 9579-7 #### [facility] ([id number]) [address] [place] [address] 85726 Platelets (Bld) [#/Vol] 268 10*3/uL Normal 150-450 [facility] Comment on above: Performed By: #### 8 9579-7 #### [facility] ([id number]) [address] [place] [address] 05526 RBC COUNT 3.88 X10E12/L Normal 3.80-5.20 [facility] Comment on above: Performed By: #### 8 9579-7 #### [facility] ([id number]) [address] [place] [address] 82821 WBC (Bld) [#/Vol] 8.8 10*3/uL Normal 4.0-11.0 [facility] Comment on above: Performed By: #### 8 9579-7 #### [facility] ([id number]) [address] [place] [address] 27797 Creatinine (U) [Mass/Vol]on 01-12-2024 URINE CREATININE,RDM 107.95 mg/dL Normal [facility] Comment on above: Performed By: #### Shahla POOLE [facility], #### [facility] ([id number]) [address] [place] [address] 04761 HBV core Ab IA Qlon 01-12-20 ANTI HBc Negative Normal NEG [facility] Comment on above: Performed By: #### Shahla POOLE [facility], #### [facility] ([id number]) [address] [place] [address] 94702 HBV surface Ab IA Qnon 01-11 Anti HBs quant. <8.00 Normal [facility] Comment on above: Result Comment: Vacc inated: >=12mIU/mL, Positive (Immune) Unvaccinated: <8mIU/mL, Negative (Not Immune) 8-11.99 mIU/mL: Indeterminate, (Considered Not Immune) Performed By: #### Shahla POOLE CMP, #### [facility] ([id number]) [address] [place] [address] 56267 HBV surface Ag IA Qlon 01-11 HEPATITIS B SURF AG Negative Normal NEG [facility] Comment on above: Performed By: #### C EDEL POOLE, 73314-8 #### [facility] ([id number]) [address] [place] [address] 26026 MAGNESIUMon 01-12-2024 Magnesium [Mass/Vol] 1.6 mg/dL Low 1.8-2.6 [facility] Comment on above: Performed By: #### 8 9579-7 #### [facility] ([id number]) [address] [place] [address] 72704 PHOSPHORUSon 01-12-2024 Phosphate [Mass/Vol] 3.6 mg/dL Normal 2.4-4.9 [facility] Comment on above: Performed By: #### 8 9579-7 #### [facility] ([id number]) [address] [place] [address] 38545 PROTEIN CREAT RATIOon 2023 RANDOM URINE PROTEIN 4520 mg/L High <120 [facility] Comment on above: Performed By: #### C VIRGILIO [facility], 21321-6 #### [facility] ([id number]) [address] [place] [address] 61251 U/PRO/ACID ETCH OPERATOR RATIO CALC 4.15 High <0.2 [facility] Comment on above: Result Comment: Neph rotic Syndrome is associated with ratios >3.5 Performed By: #### C EDEL POOLE, 90218-3 #### [facility] ([id number]) [address] [place] [address] 30039 URINE CREATININE,RDM 108.96 mg/dL Normal Pr [facility] Comment on above: Performed By: #### C EDEL POOLE, 30300-8 #### [facility] ([id number]) [address] [place] [address] 08353 Parathyrin.intact [Mass/Vol] on 01-12-2024 PTH INTACT 69 pg/mL Normal 12-88 [facility] Comment on above: Performed By: #### C BCA, CMP, 60778-4 #### [facility] ([id number]) [address] [place] [address] 27621 Protein (U) [Mass/Vol]on RANDOM URINE PROTEIN 4560 mg/L High <120 [facility] Comment on above: Performed By: #### C BCA, CMP, #### [facility] ([id number]) [address] [place] [address] [place] [address] URINALYSISon 01-12-2024 Bilirubin Ql (U) Negative Normal NEG [facility] Comment on above: Performed By: #### C BCA, CMP, #### [facility] ([id number]) [address] [place] [address] BLOOD/HGB Small Abnormal NEG [facility] Comment on above: Performed By: #### C BCA, CMP, 14209-7 #### [facility] ([id number]) [address] [place] [address] Color (U) YELLOW Normal YELLOW [facility] Comment on above: Performed By: #### C BCA, CMP, 62047-5 #### [facility] ([id number]) [address] [place] [address] 51296 Glucose Ql (U) Negative Normal NEG [facility] Comment on above: Performed By: #### C BCA, CMP, 94273-9 #### [facility] ([id number]) [address] [place] [address] 43168 Hyaline casts LM Ql (Urine sed) 1 /lpf Normal 0-2 [facility] Comment on above: Performed By: #### C BCA, CMP, 64715-7 #### [facility] ([id number]) [address] [place] [address], [place] [address] Ketones Ql (U) Negative Normal NEG [facility] Comment on above: Performed By: #### C VIRGILIO CMP, 69982-5 #### [facility] ([id number]) [address] [place] [address] Leukocyte esterase Test strip Ql (U) Negative Normal NEG [facility] Comment on above: Performed By: #### Shahla POOLE CMP, 00012-0 #### [facility] ([id number]) [address] [place] [address]18 MUCOUS PRESENT Abnormal NONE [facility] Comment on above: Performed By: #### C VIRGILIO CMP, 22963-4 #### [facility] ([id number]) [address] [place] [address]228 Nitrite Ql (U) Negative Normal NEG [facility] Comment on above: Performed By: #### C VIRGILIO [facility], 36825-9 #### [facility] ([id number]) [address] [place] [address] 65914 pH (U) 6.5 [pH] Normal 5.0-8.5 [facility] Comment on above: Performed By: #### C VIRGILIO, CMP, 49569-5 #### [facility] ([id number]) [address] [place] [address] 95870 Protein Ql (U) 300 mg/dL Abnormal NEG [facility] Comment on above: Performed By: #### C VIRGILIO, CMP, 34542-3 #### [facility] ([id number]) [address] [place] [address] 60265 R.B.CELLS 0 /hpf Normal 0-5 [facility] Comment on above: Performed By: #### C VIRGILIO, CMP, 70028-0 #### [facility] ([id number]) [address] [place] [address] 41065 Specific gravity (U) [Rel density] 1.015 Normal 1.003-1.03 5 [facility] Comment on above: Performed By: #### Shahla POOLE [facility], 09740-6 #### [facility] ([id number]) [address] [place] [address] 01069 SQUAMOUS EPITHELIUM 1 /hpf Normal 0-5 [facility] Comment on above: Performed By: #### Shahla POOLE [facility], 56332-8 #### [facility] ([id number]) [address] [place] [address] 43964 TURBIDITY CLEAR Normal CLEAR [facility] Comment on above: Performed By: #### Shahla POOLE [facility], 09399-0 #### [facility] ([id number]) [address] [place] [address] 29006 Urobilinogen (U) [Mass/Vol] mg/dL Normal <1.1 [facility] Comment on above: Performed By: #### Shahla POOLE [facility], 03972-5 #### [facility] ([id number]) [address] [place] [address] 06872 W.B.CELLS 2 /hpf Normal 0-5 [facility] Comment on above: Performed By: #### Shahla POOLE [facility], 85010-8 #### [facility] ([id number]) [address] [place] [address] 25321 Vitamin D+Metabolites [Mass/ Vol]on 01-12-2024 VITAMIN D 25 HYD TOT 23.5 ng/mL Low 30-100 [facility] Comment on above: Result Comment: Vitamin D status 25 [place] Vitamin D Deficiency <20 ng/mL Insufficiency 20-29 ng/mL Sufficiency 30-100 ng/mL Toxicity >100 ng/mL NOTE: A pediatric reference range has not been established by the dovetail machine operator of this kit. The [place] [employer] recommends a Vitamin D level of = or >20ng/mL in infants and children. Performed By: #### Shahla POOLE CMP, #### [facility] ([id number]) [address] [place] [address], [place] [address] COMPLETE BLOOD COUNTon 12-18 Erythrocyte distribution width (RBC) [Ratio] 16.7 % High 11.5-15.0 [facility] Comment on above: Performed By: #### C EDEL POOLE, , 2776-04, 1987-08 #### [facility] ([id number]) [address] [place] [address] Hematocrit (Bld) [Volume fraction] 30.1 % Low 35-47 [facility] Comment on above: Performed By: #### Shahla POOLE CMP, , 2776-04, 1987-08 #### [facility] ([id number]) [address] [place] [address] Hemoglobin (Bld) [Mass/Vol] 9.6 g/dL Low 11.7-15.5 [facility] Comment on above: Performed By: #### Shahla POOLE CMP, , 2776-04, 1987-08 #### [facility] ([id number]) [address] [place] [address] MCH (RBC) [Entitic mass] 27.3 pg Normal 27-34 [facility] Comment on above: Performed By: #### Shahla POOLE CMP, , 2776-04, 1987-08 #### [facility] ([id number]) [address] [place] [address] MCHC (RBC) [Mass/Vol] 32.0 g/dL Normal 32-36 [facility] Comment on above: Performed By: #### Shahla POOLE CMP, , 2776-04, 1987-08 #### [facility] ([id number]) [address] [place] [address] MCV (RBC) [Entitic vol] 86 fL Normal 80-100 [facility] Comment on above: Performed By: #### C BCA, CMP, , 2776-04, 1987-08 #### [facility] ([id number]) [address] [place] [address] Platelet mean volume (Bld) [Entitic vol] 9.1 fL Normal 7-12 [facility] Comment on above: Performed By: #### C BCA, CMP, , 2776-04, 1987-08 #### [facility] ([id number]) [address] [place] [address] Platelets (Bld) [#/Vol] 361 10*3/uL Normal 150-450 [facility] Comment on above: Performed By: #### C BCA, CMP, , 2776-04, 1987-08 #### [facility] ([id number]) [address] [place] [address] RBC COUNT 3.52 X10E12/L Low 3.80-5.20 [facility] Comment on above: Performed By: #### C BCA, CMP, , 2776-04, 1987-08 #### [facility] ([id number]) [address] [place] [address] WBC (Bld) [#/Vol] 8.2 10*3/uL Normal 4.0-11.0 [facility] Comment on above: Performed By: #### C BCA, CMP, , 2776-04, 1987-08 #### [facility] ([id number]) [address], [address] [place] [address] COMPREHENSIVE METABOLIC PANE Phu 12-19-2023 Albumin [Mass/Vol] 3.4 g/dL Normal 3.2-5.3 [facility] Comment on above: Performed By: #### C BCA, CMP, , 2776-04, 1987-08 #### [facility] ([id number]) [address] [place] [address] ALP [Catalytic activity/Vol] 60 U/L Normal 39-130 [facility] Comment on above: Performed By: #### C BCA, CMP, , 2776-04, 1987-08 #### [facility] ([id number]) [address] [place] [address] ALT [Catalytic activity/Vol] 12 U/L Normal 0-31 [facility] Comment on above: Performed By: #### C BCA, CMP, , 2776-04, 1987-08 #### [facility] ([id number]) [address] [place] [address] Anion gap [Moles/Vol] 9 mmol/L Normal 5-15 [facility] Comment on above: Performed By: #### C BCA, CMP, , 2776-04, 1987-08 #### [facility] ([id number]) [address] [place] [address] AST [Catalytic activity/Vol] 13 U/L Normal 0-41 [facility] Comment on above: Performed By: #### C BCA, CMP, , 2776-04, 1987-08 #### [facility] ([id number]) [address] [place] [address] Bilirubin [Mass/Vol] 0.4 mg/dL Normal 0.3-1.2 [facility] Comment on above: Performed By: #### C BCA, CMP, , 2776-04, 1987-08 #### [facility] ([id number]) [address] [place] [address] Calcium [Mass/Vol] 9.5 mg/dL Normal 8.5-10.5 [facility] Comment on above: Performed By: #### C BCA, CMP, , 2776-04, 1987-08 #### [facility] ([id number]) [address] [place] [address] Chloride [Moles/Vol] 105 mmol/L Normal 98-109 [facility] Comment on above: Performed By: #### C BCA, CMP, , 2776-04, 1987-08 #### [facility] ([id number]) [address] [place] [address] CO2 [Moles/Vol] 28 mmol/L Normal 22-32 [facility] Comment on above: Performed By: #### C BCA, CMP, , 2776-04, 1987-08 #### [facility] ([id number]) [address] [place] [address] Creatinine [Mass/Vol] 1.23 mg/dL High 0.40-1.00 [facility] Comment on above: Result Comment: METH OD TRACEABLE TO IDMS STANDARD Performed By: #### C BCA, CMP, , 2776-04, 1987-08 #### [facility] ([id number]) [address] [place] [address] GFR/1.73 sq M.predicted among non-blacks MDRD (S/P/Bld) [Vol rate/Area] 51 mL/min/{1.73_m2} Low >59 [facility] Comment on above: Result Comment: Reported eGFR is based on the CKD-EPI 2020 equation that does not use a race coefficient. Performed By: #### C BCA, CMP, , 2776-04, 1987-08 #### [facility] ([id number]) [address] [place] [address] Glucose [Mass/Vol] 89 mg/dL Normal 65-99 [facility] Comment on above: Performed By: #### C BCA, CMP, , 2776-04, 1987-08 #### [facility] ([id number]) [address] [place] [address] Potassium [Moles/Vol] 4.9 mmol/L Normal 3.5-5.0 [facility] Comment on above: Performed By: #### C BCA, CMP, , 2776-04, 1987-08 #### [facility] ([id number]) [address] [place] [address] Protein [Mass/Vol] 6.0 g/dL Normal 6.0-8.0 [facility] Comment on above: Performed By: #### C BCA, CMP, , 2776-04, 1987-08 #### [facility] ([id number]) [address] [place] [address] Sodium [Moles/Vol] 142 mmol/L Normal 134-146 [facility] Comment on above: Performed By: #### C BCA, CMP, , 2776-04, 1987-08 #### [facility] ([id number]) [address] [place] [address] Urea nitrogen [Mass/Vol] 21 mg/dL Normal 5-23 [facility] Comment on above: Performed By: #### C BCA, CMP, , 2776-04, 1987-08 #### [facility] ([id number]) [address] [place] [address] CRP [Mass/Vol]on 12-19-2023 C REACTIVE PROTEIN 0.8 mg/dL High 0.000-0.7 4 4 [facility] Comment on above: Performed By: #### C VIRGILIO CMP, , 2776-04, 1987-08 #### [facility] ([id number]) [address] [place] [address] ESR Photometric method (Bld) [Velocity]on 12-19-2023 ESR, ERYTHROCYTE SEDIMENTATION RATE 67 mm/h High 0-30 [facility] Comment on above: Performed By: #### C VIRGILIO, CMP, , 2776-04, 1987-08 #### [facility] ([id number]) [address] [place] [address] Neutrophil cytoplasmic Ab pa selvin IF (S)on 12-19-2023 c-ANCA Negative Normal Negative [facility] Comment on above: Performed By: #### C VIRGILIO EDEL, , 2776-04, 1987-08 #### [facility] ([id number]) [address] [place] [address] p-ANCA Positive Abnormal Negative [facility] Comment on above: Result Comment: NOTE Positive for pANCA pattern by immunofluorescence. Suggest further testing for anti-myeloperoxidase (anti-MPO) antibodies, if clinically indicated. ADDITIONAL INFORMATION This test was developed and its performance characteristics determined by [facility] in a manner consistent with CLIA requirements. This test has not been cleared or approved by the U.S. Food and Drug Administration. Test Performed by: [facility] [address] [place] [address] Immigration Officer: Ledy Son Ph.D.; CLIA# [id number] Performed By: #### C VIRGILIO, CMP, , 2776-04, 1987-08 #### [facility] ([id number]) [address] [place] [address] CBC AND AUTO DIFFon 11-07-19 24 ABSOLUTE BASOPHIL 0.0 X10E9/L Normal 0.0-0.2 [facility] Comment on above: Performed By: #### C BCA, CMP, , 2776-04, 1987-08 #### [facility] ([id number]) [address] [place] [address] ABSOLUTE NEUTROPHIL 12.2 X10E9/L High 1.5-6.6 [facility] Comment on above: Performed By: #### C BCA, CMP, , 2776-04, 1987-08 #### [facility] ([id number]) [address] [place] [address] Basophils/100 WBC (Bld) 0.2 % Normal [facility] Comment on above: Performed By: #### C BCA, CMP, , 2776-04, 1987-08 #### [facility] ([id number]) [address] [place] [address] Eosinophils (Bld) [#/Vol] 0.0 10*3/uL Normal 0.0-0.4 [facility] Comment on above: Performed By: #### C BCA, CMP, , 2776-04, 1987-08 #### [facility] ([id number]) [address] [place] [address] Eosinophils/100 WBC (Bld) 0.0 % Normal [facility] Comment on above: Performed By: #### C BCA, CMP, , 2776-04, 1987-08 #### [facility] ([id number]) [address] [place] [address] Erythrocyte distribution width (RBC) [Ratio] 15.6 % High 11.5-15.0 [facility] Comment on above: Performed By: #### C BCA, CMP, , 2776-04, 1987-08 #### [facility] ([id number]) [address] [place] [address] Hematocrit (Bld) [Volume fraction] 32.0 % Low 35-47 [facility] Comment on above: Performed By: #### Shahla POOLE CMP, , 2776-04, 1987-08 #### [facility] ([id number]) [address] [place] [address] Hemoglobin (Bld) [Mass/Vol] 10.4 g/dL Low 11.7-15.5 [facility] Comment on above: Performed By: #### Shahla POOLE CMP, , 2776-04, 1987-08 #### [facility] ([id number]) [address] [place] [address] Lymphocytes (Bld) [#/Vol] 0.3 10*3/uL Low 1.0-3.5 [facility] Comment on above: Performed By: #### Shahla POOLE CMP, , 2776-04, 1987-08 #### [facility] ([id number]) [address] [place] [address] Lymphocytes/100 WBC (Bld) 2.6 % Normal [facility] Comment on above: Performed By: #### Shahla POOLE CMP, , 2776-04, 1987-08 #### [facility] ([id number]) [address] [place] [address] MCH (RBC) [Entitic mass] 27.6 pg Normal 27-34 [facility] Comment on above: Performed By: #### Shahla BCA, CMP, , 2776-04, 1987-08 #### [facility] ([id number]) [address] [place] [address] MCHC (RBC) [Mass/Vol] 32.4 g/dL Normal 32-36 [facility] Comment on above: Performed By: #### C BCA, CMP, , 2776-04, 1987-08 #### [facility] ([id number]) [address] [place] [address] MCV (RBC) [Entitic vol] 85 fL Normal 80-100 P [facility] Comment on above: Performed By: #### Shahla BCA, CMP, , 2776-04, 1987-08 #### [facility] ([id number]) [address] [place] [address] Monocytes (Bld) [#/Vol] 0.2 10*3/uL Normal 0-0.9 [facility] Comment on above: Performed By: #### Shahla BCA, CMP, , 2776-04, 1987-08 #### [facility] ([id number]) [address] [place] [address] Monocytes/100 WBC (Bld) 1.8 % Normal [facility] Comment on above: Performed By: #### Shahla POOLE, CMP, , 2776-04, 1987-08 #### [facility] ([id number]) [address] [place] [address] Neutrophils/100 WBC (Bld) 95.4 % Normal [facility] Comment on above: Performed By: #### Shahla BCA, CMP, , 2776-04, 1987-08 #### [facility] ([id number]) [address] [place] [address] Platelet mean volume (Bld) [Entitic vol] 9.1 fL Normal 7-12 [facility] Comment on above: Performed By: #### Shahla BCA, CMP, , 2776-04, 1987-08 #### [facility] ([id number]) [address] [place] [address] Platelets (Bld) [#/Vol] 183 10*3/uL Normal 150-450 [facility] Comment on above: Performed By: #### C BCA, CMP, , 2776-04, 1987-08 #### [facility] ([id number]) [address] [place] [address] RBC COUNT 3.76 X10E12/L Low 3.80-5.20 [facility] Comment on above: Performed By: #### C BCA, CMP, , 2776-04, 1987-08 #### [facility] ([id number]) [address] [place] [address] WBC (Bld) [#/Vol] 12.8 10*3/uL High 4.0-11.0 [facility] Comment on above: Performed By: #### C BCA, CMP, , 2776-04, 1987-08 #### [facility] ([id number]) [address] [place] [address] COMPREHENSIVE METABOLIC PANE Phu 11-07-2023 Albumin [Mass/Vol] 3.5 g/dL Normal 3.2-5.3 [facility] Comment on above: Performed By: #### C BCA, CMP, , 2776-04, 1987-08 #### [facility] ([id number]) [address] [place] [address] ALP [Catalytic activity/Vol] 46 U/L Normal 39-130 [facility] Comment on above: Performed By: #### C BCA, CMP, , 2776-04, 1987-08 #### [facility] ([id number]) [address] [place] [address] ALT [Catalytic activity/Vol] 31 U/L Normal 0-31 [facility] Comment on above: Performed By: #### C BCA, CMP, , 2776-04, 1987-08 #### [facility] ([id number]) [address] [place] [address] Anion gap [Moles/Vol] 9 mmol/L Normal 5-15 [facility] Comment on above: Performed By: #### C BCA, CMP, , 2776-04, 1987-08 #### [facility] ([id number]) [address] [place] [address] AST [Catalytic activity/Vol] 10 U/L Normal 0-41 [facility] Comment on above: Performed By: #### C BCA, CMP, , 2776-04, 1987-08 #### [facility] ([id number]) [address] [place] [address] Bilirubin [Mass/Vol] 0.5 mg/dL Normal 0.3-1.2 [facility] Comment on above: Performed By: #### C BCA, CMP, , 2776-04, 1987-08 #### [facility] ([id number]) [address] [place] [address] Calcium [Mass/Vol] 9.1 mg/dL Normal 8.5-10.5 [facility] Comment on above: Performed By: #### C BCA, CMP, , 2776-04, 1987-08 #### [facility] ([id number]) [address] [place] [address] Chloride [Moles/Vol] 104 mmol/L Normal 98-109 [facility] Comment on above: Performed By: #### C BCA, CMP, , 2776-04, 1987-08 #### [facility] ([id number]) [address] [place] [address] CO2 [Moles/Vol] 26 mmol/L Normal 22-32 [facility] Comment on above: Performed By: #### C BCA, CMP, , 2776-04, 1987-08 #### [facility] ([id number]) [address] [place] [address] Creatinine [Mass/Vol] 1.60 mg/dL High 0.40-1.00 [facility] Comment on above: Result Comment: METH OD TRACEABLE TO IDMS STANDARD Performed By: #### C VIRGILIO, CMP, , 2776-04, 1987-08 #### [facility] ([id number]) [address] [place] [address] GFR/1.73 sq M.predicted among non-blacks MDRD (S/P/Bld) [Vol rate/Area] 37 mL/min/{1.73_m2} Low >59 [facility] Comment on above: Result Comment: Reported eGFR is based on the CKD-EPI 2020 equation that does not use a race coefficient. Performed By: #### C VIRGILIO, CMP, , 2776-04, 1987-08 #### [facility] ([id number]) [address] [place] [address] Glucose [Mass/Vol] 119 mg/dL High 65-99 [facility] Comment on above: Performed By: #### C VIRGILIO, CMP, , 2776-04, 1987-08 #### [facility] ([id number]) [address] [place] [address] Potassium [Moles/Vol] 5.2 mmol/L High 3.5-5.0 [facility] Comment on above: Performed By: #### C BCA, CMP, , 2776-04, 1987-08 #### [facility] ([id number]) [address] [place] [address] Protein [Mass/Vol] 5.3 g/dL Low 6.0-8.0 [facility] Comment on above: Performed By: #### C BCA, CMP, , 2776-04, 1987-08 #### [facility] ([id number]) [address], [address] [place] [address] Sodium [Moles/Vol] 139 mmol/L Normal 134-146 [facility] Comment on above: Performed By: #### C BCA, CMP, , 2776-04, 1987-08 #### [facility] ([id number]) [address], [address] [place] [address] Urea nitrogen [Mass/Vol] 52 mg/dL High 5-23 [facility] Comment on above: Performed By: #### C BCA, CMP, , 2776-04, 1987-08 #### [facility] ([id number]) [address], [address] [place] [address] M. tuberculosis stim IFN-g p tiffanie (Bld)on 11-07-2023 Mitogen minus Nil Result 0.07 IU/mL Normal [facility] Nil Result 0.01 IU/mL Normal [facility] Comment on above: Result Comment: NOTE Test Performed by: [facility] [address] [place] [address] Immigration Officer: Ledy Son Ph.D.; CLIA# [id number] QuantiFERON-Tb Gold Plus Result Indeterminate Abnormal Negative [facility] Comment on above: Result Comment: NOTE Indeterminate due to a low interferon-gamma level in the mitogen (positive control) tube. This may occur due to a low lymphocyte count, reduced lymphocyte activity or inability of the patient's lymphocytes to generate interferon-gamma. The reference range for the 'Mitogen minus Nil Result' is >=0.5 IU/mL. TB1 Ag minus Nil Result 0.00 IU/mL Normal [facility] TB2 Ag minus Nil Result 0.00 IU/mL Normal [facility] BASIC METABOLIC PANLon 11-01 Anion gap [Moles/Vol] 9 mmol/L Normal 5-15 [facility] Comment on above: Performed By: #### 8 9579-7 #### [facility] ([id number]) [address] [place] [address] Calcium [Mass/Vol] 8.5 mg/dL Normal 8.5-10.5 [facility] Comment on above: Performed By: #### 8 9579-7 #### [facility] ([id number]) [address] [place] [address] Chloride [Moles/Vol] 108 mmol/L Normal 98-109 [facility] Comment on above: Performed By: #### 8 9579-7 #### [facility] ([id number]) [address] [place] [address] CO2 [Moles/Vol] 24 mmol/L Normal 22-32 [facility] Comment on above: Performed By: #### 8 9579-7 #### [facility] ([id number]) [address] [place] [address] Creatinine [Mass/Vol] 1.59 mg/dL High 0.40-1.00 [facility] Comment on above: Result Comment: METH OD TRACEABLE TO IDMS STANDARD Performed By: #### 8 9579-7 #### [facility] ([id number]) [address] [place] [address] GFR/1.73 sq M.predicted among non-blacks MDRD (S/P/Bld) [Vol rate/Area] 37 mL/min/{1.73_m2} Low >59 [facility] Comment on above: Result Comment: Reported eGFR is based on the CKD-EPI 1 equation that does not use a race coefficient. Performed By: #### 8 9579-7 #### [facility] ([id number]) [address] [place] [address] Glucose [Mass/Vol] 109 mg/dL High 65-99 [facility] Comment on above: Performed By: #### 8 9579-7 #### [facility] ([id number]) [address] [place] [address] Potassium [Moles/Vol] 3.9 mmol/L Normal 3.5-5.0 [facility] Comment on above: Performed By: #### 8 9579-7 #### [facility] ([id number]) [address] [place] [address] Sodium [Moles/Vol] 141 mmol/L Normal 134-146 [facility] Comment on above: Performed By: #### 8 9579-7 #### [facility] ([id number]) [address] [place] [address] Urea nitrogen [Mass/Vol] 40 mg/dL High 5-23 [facility] Comment on above: Performed By: #### 8 9579-7 #### [facility] ([id number]) [address] [place] [address] CBC AND AUTO DIFFon 10-25-19 24 ABSOLUTE BASOPHIL 0.1 X10E9/L Normal 0.0-0.2 [facility] Comment on above: Performed By: #### C VIRGILIO, CMP, , 2776-04, 1987-08 #### [facility] ([id number]) [address] [place] [address] ABSOLUTE NEUTROPHIL 6.5 X10E9/L Normal 1.5-6.6 [facility] Comment on above: Performed By: #### C BCA, CMP, , 2776-04, 1987-08 #### [facility] ([id number]) [address] [place] [address] Basophils/100 WBC (Bld) 0.6 % Normal [facility] Comment on above: Performed By: #### C BCA, CMP, , 2776-04, 1987-08 #### [facility] ([id number]) [address] [place] [address] Eosinophils (Bld) [#/Vol] 0.0 10*3/uL Normal 0.0-0.4 [facility] Comment on above: Performed By: #### C BCA, CMP, , 2776-04, 1987-08 #### [facility] ([id number]) [address] [place] [address] Eosinophils/100 WBC (Bld) 0.4 % Normal [facility] Comment on above: Performed By: #### C BCA, CMP, , 2776-04, 1987-08 #### [facility] ([id number]) [address] [place] [address] Erythrocyte distribution width (RBC) [Ratio] 14.5 % Normal 11.5-15.0 [facility] Comment on above: Performed By: #### Shahla POOLE, CMP, , 2776-04, 1987-08 #### [facility] ([id number]) [address] [address] [place] [address] Hematocrit (Bld) [Volume fraction] 30.5 % Low 35-47 [facility] Comment on above: Performed By: #### C BCA, CMP, , 2776-04, 1987-08 #### [facility] ([id number]) [address] [place] [address] Hemoglobin (Bld) [Mass/Vol] 10.5 g/dL Low 11.7-15.5 [facility] Comment on above: Performed By: #### C BCA, CMP, , 2776-04, 1987-08 #### [facility] ([id number]) [address] [place] [address] Lymphocytes (Bld) [#/Vol] 1.4 10*3/uL Normal 1.0-3.5 [facility] Comment on above: Performed By: #### Shahla POOLE CMP, , 2776-04, 1987-08 #### [facility] ([id number]) [address] [address] Lymphocytes/100 WBC (Bld) 16.2 % Normal [facility] Comment on above: Performed By: #### Shahla POOLE, CMP, , 2776-04, 1987-08 #### [facility] ([id number]) [address] [address] MCH (RBC) [Entitic mass] 28.5 pg Normal 27-34 [facility] Comment on above: Performed By: #### Shahla BCA, CMP, , 2776-04, 1987-08 #### [facility] ([id number]) [address] [address] MCHC (RBC) [Mass/Vol] 34.4 g/dL Normal 32-36 [facility] Comment on above: Performed By: #### Shahla BCA, CMP, , 2776-04, 1987-08 #### [facility] ([id number]) [address] [address] MCV (RBC) [Entitic vol] 83 fL Normal 80-100 [facility] Comment on above: Performed By: #### Shahla BCA, CMP, , 2776-04, 1987-08 #### [facility] ([id number]) [address] [address] Monocytes (Bld) [#/Vol] 0.5 10*3/uL Normal 0-0.9 [facility] Comment on above: Performed By: #### Shahla BCA, CMP, , 2776-04, 1987-08 #### [facility] ([id number]) [address] [place] [address] Monocytes/100 WBC (Bld) 5.9 % Normal [facility] Comment on above: Performed By: #### Shahla BCA, CMP, , 2776-04, 1987-08 #### [facility] ([id number]) [address] [place] [address] Neutrophils/100 WBC (Bld) 76.9 % Normal [facility] Comment on above: Performed By: #### Shahla BCA, CMP, , 2776-04, 1987-08 #### [facility] ([id number]) [address] [place] [address] Platelet mean volume (Bld) [Entitic vol] 9.1 fL Normal 7-12 [facility] Comment on above: Performed By: #### Shahla BCA, CMP, , 2776-04, 1987-08 #### [facility] ([id number]) [address] [place] [address] Platelets (Bld) [#/Vol] 248 10*3/uL Normal 150-450 [facility] Comment on above: Performed By: #### Shahla BCA, CMP, , 2776-04, 1987-08 #### [facility] ([id number]) [address] [place] [address] RBC COUNT 3.68 X10E12/L Low 3.80-5.20 [facility] Comment on above: Performed By: #### Shahla BCA, CMP, , 2776-04, 1987-08 #### [facility] ([id number]) [address] [place] [address] RBC morphology finding Nom (Bld) REVIEWED Normal [facility] Comment on above: Performed By: #### C BCA, CMP, , 2776-04, 1987-08 #### [facility] ([id number]) [address] [place] [address] WBC (Bld) [#/Vol] 8.4 10*3/uL Normal 4.0-11.0 [facility] Comment on above: Performed By: #### C BCA, CMP, , 2776-04, 1987-08 #### [facility] ([id number]) [address] [place] [address] COMPREHENSIVE METABOLIC PANE Phu 10-25-2023 Albumin [Mass/Vol] 3.1 g/dL Low 3.2-5.3 [facility] Comment on above: Performed By: #### C BCA, CMP, , 2776-04, 1987-08 #### [facility] ([id number]) [address] [place] [address] ALP [Catalytic activity/Vol] 35 U/L Low 39-130 [facility] Comment on above: Performed By: #### C BCA, CMP, , 2776-04, 1987-08 #### [facility] ([id number]) [address] [place] [address] ALT [Catalytic activity/Vol] 8 U/L Normal 0-31 [facility] Comment on above: Performed By: #### C BCA, CMP, , 2776-04, 1987-08 #### [facility] ([id number]) [address] [place] [address] Anion gap [Moles/Vol] 9 mmol/L Normal 5-15 [facility] Comment on above: Performed By: #### C BCA, CMP, , 2776-04, 1987-08 #### [facility] ([id number]) [address] [place] [address] AST [Catalytic activity/Vol] 10 U/L Normal 0-41 [facility] Comment on above: Performed By: #### C BCA, CMP, , 2776-04, 1987-08 #### [facility] ([id number]) [address] [place] [address] Bilirubin [Mass/Vol] 0.3 mg/dL Normal 0.3-1.2 [facility] Comment on above: Performed By: #### C BCA, CMP, , 2776-04, 1987-08 #### [facility] ([id number]) [address] [place] [address] Calcium [Mass/Vol] 8.6 mg/dL Normal 8.5-10.5 [facility] Comment on above: Performed By: #### C BCA, CMP, , 2776-04, 1987-08 #### [facility] ([id number]) [address] [place] [address] Chloride [Moles/Vol] 106 mmol/L Normal 98-109 [facility] Comment on above: Performed By: #### C BCA, CMP, , 2776-04, 1987-08 #### [facility] ([id number]) [address] [place] [address] CO2 [Moles/Vol] 25 mmol/L Normal 22-32 [facility] Comment on above: Performed By: #### C BCA, CMP, , 2776-04, 1987-08 #### [facility] ([id number]) [address] [place] [address] Creatinine [Mass/Vol] 2.12 mg/dL High 0.40-1.00 [facility] Comment on above: Result Comment: METH OD TRACEABLE TO IDMS STANDARD Performed By: #### C BCA, CMP, , 2776-04, 1987-08 #### [facility] ([id number]) [address], [facility] [address] [place] [address] GFR/1.73 sq M.predicted among non-blacks MDRD (S/P/Bld) [Vol rate/Area] 26 mL/min/{1.73_m2} Low >59 [facility] Comment on above: Result Comment: Reported eGFR is based on the CKD-EPI 2020 equation that does not use a race coefficient. Performed By: #### C VIRGILIO CMP, , 2776-04, 1987-08 #### [facility] ([id number]) [address] [place] [address] Glucose [Mass/Vol] 81 mg/dL Normal 65-99 [facility] Comment on above: Performed By: #### C VIRGILIO CMP, , 2776-04, 1987-08 #### [facility] ([id number]) [address] [place] [address] Potassium [Moles/Vol] 4.1 mmol/L Normal 3.5-5.0 [facility] Comment on above: Performed By: #### C VIRGILIO, CMP, , 2776-04, 1987-08 #### [facility] ([id number]) [address] [place] [address] Protein [Mass/Vol] 4.9 g/dL Low 6.0-8.0 [facility] Comment on above: Performed By: #### C BCA, CMP, , 2776-04, 1987-08 #### [facility] ([id number]) [address] [place] [address] Sodium [Moles/Vol] 140 mmol/L Normal 134-146 [facility] Comment on above: Performed By: #### C BCA, CMP, , 2776-04, 1987-08 #### [facility] ([id number]) [address] [place] [address] Urea nitrogen [Mass/Vol] 58 mg/dL High 5-23 [facility] Comment on above: Performed By: #### C VIRGILIO, CMP, , 2776-04, 1987-08 #### [facility] ([id number]) [address] [place] [address] Calcium.ionized (Bld) [Mass/ Vol]on 10-25-2023 IONIZED CALCIUM 4.8 mg/dL Normal 4.5-5.3 [facility] Comment on above: Performed By: #### C VIRGILIO, CMP, , 2776-04, 1987-08 #### [facility] ([id number]) [address] [place] [address] MAGNESIUMon 10-25-2023 Magnesium [Mass/Vol] 2.1 mg/dL Normal 1.8-2.6 [facility] Comment on above: Performed By: #### C VIRGILIO, CMP, , 2776-04, 1987-08 #### [facility] ([id number]) [address] [place] [address] PHOSPHORUSon 10-25-2023 Phosphate [Mass/Vol] 3.5 mg/dL Normal 2.4-4.9 [facility] Comment on above: Performed By: #### C BCA, CMP, , 2776-04, 1987-08 #### [facility] ([id number]) [address] [place] [address] CBC AND AUTO DIFFon 10-24-19 24 ABSOLUTE BASOPHIL 0.0 X10E9/L Normal 0.0-0.2 [facility] Comment on above: Performed By: #### Shahla BCA, CMP, , 2776-04, 1987-08 #### [facility] ([id number]) [address] [place] [address] ABSOLUTE NEUTROPHIL 7.2 X10E9/L High 1.5-6.6 [facility] Comment on above: Performed By: #### C BCA, CMP, , 2776-04, 1987-08 #### [facility] ([id number]) [address] [place] [address] Basophils/100 WBC (Bld) 0.1 % Normal [facility] Comment on above: Performed By: #### C BCA, CMP, , 2776-04, 1987-08 #### [facility] ([id number]) [address] [place] [address] Eosinophils (Bld) [#/Vol] 0.0 10*3/uL Normal 0.0-0.4 [facility] Comment on above: Performed By: #### C BCA, CMP, , 2776-04, 1987-08 #### [facility] ([id number]) [address] [place] [address] Eosinophils/100 WBC (Bld) 0.2 % Normal [facility] Comment on above: Performed By: #### C BCA, CMP, , 2776-04, 1987-08 #### [facility] ([id number]) [address] [place] [address] Erythrocyte distribution width (RBC) [Ratio] 14.7 % Normal 11.5-15.0 [facility] Comment on above: Performed By: #### C BCA, CMP, , 2776-04, 1987-08 #### [facility] ([id number]) [address] [place] [address] Hematocrit (Bld) [Volume fraction] 31.4 % Low 35-47 [facility] Comment on above: Performed By: #### C BCA, CMP, , 2776-04, 1987-08 #### [facility] ([id number]) [address] [place] [address] Hemoglobin (Bld) [Mass/Vol] 10.5 g/dL Low 11.7-15.5 [facility] Comment on above: Performed By: #### Shahla BCA, CMP, , 2776-04, 1987-08 #### [facility] ([id number]) [address] [place] [address] Lymphocytes (Bld) [#/Vol] 3.1 10*3/uL Normal 1.0-3.5 [facility] Comment on above: Performed By: #### Shahla BCA, CMP, , 2776-04, 1987-08 #### [facility] ([id number]) [address] [place] [address] Lymphocytes/100 WBC (Bld) 27.5 % Normal [facility] Comment on above: Performed By: #### Shahla POOLE, CMP, , 2776-04, 1987-08 #### [facility] ([id number]) [address] [place] [address] MCH (RBC) [Entitic mass] 28.1 pg Normal 27-34 [facility] Comment on above: Performed By: #### Shahla BCA, CMP, , 2776-04, 1987-08 #### [facility] ([id number]) [address] [place] [address] MCHC (RBC) [Mass/Vol] 33.3 g/dL Normal 32-36 [facility] Comment on above: Performed By: #### Shahla BCA, CMP, , 2776-04, 1987-08 #### [facility] ([id number]) [address] [place] [address] MCV (RBC) [Entitic vol] 84 fL Normal 80-100 [facility] Comment on above: Performed By: #### C BCA, CMP, , 2776-04, 1987-08 #### [facility] ([id number]) [address] [place] [address] Monocytes (Bld) [#/Vol] 0.8 10*3/uL Normal 0-0.9 [facility] Comment on above: Performed By: #### C BCA, CMP, , 2776-04, 1987-08 #### [facility] ([id number]) [address] [place] [address] Monocytes/100 WBC (Bld) 7.6 % Normal [facility] Comment on above: Performed By: #### Shahla BCA, CMP, , 2776-04, 1987-08 #### [facility] ([id number]) [address] [place] [address] Neutrophils/100 WBC (Bld) 64.6 % Normal [facility] Comment on above: Performed By: #### Shahla BCA, CMP, , 2776-04, 1987-08 #### [facility] ([id number]) [address] [place] [address] Platelet mean volume (Bld) [Entitic vol] 9.6 fL Normal 7-12 [facility] Comment on above: Performed By: #### Shahla BCA, CMP, , 2776-04, 1987-08 #### [facility] ([id number]) [address] [place] [address] Platelets (Bld) [#/Vol] 304 10*3/uL Normal 150-450 [facility] Comment on above: Performed By: #### Shahla BCA, CMP, , 2776-04, 1987-08 #### [facility] ([id number]) [address] [place] [address] RBC COUNT 3.73 X10E12/L Low 3.80-5.20 [facility] Comment on above: Performed By: #### C BCA, CMP, , 2776-04, 1987-08 #### [facility] ([id number]) [address] [place] [address] WBC (Bld) [#/Vol] 11.2 10*3/uL High 4.0-11.0 [facility] Comment on above: Performed By: #### C BCA, CMP, , 2776-04, 1987-08 #### [facility] ([id number]) [address] [place] [address] COMPREHENSIVE METABOLIC PANE Phu 10-24-2023 Albumin [Mass/Vol] 3.2 g/dL Normal 3.2-5.3 [facility] Comment on above: Performed By: #### C BCA, CMP, , 2776-04, 1987-08 #### [facility] ([id number]) [address] [place] [address] ALP [Catalytic activity/Vol] 37 U/L Low 39-130 [facility] Comment on above: Performed By: #### C BCA, CMP, , 2776-04, 1987-08 #### [facility] ([id number]) [address] [place] [address] ALT [Catalytic activity/Vol] 8 U/L Normal 0-31 [facility] Comment on above: Performed By: #### C BCA, CMP, , 2776-04, 1987-08 #### [facility] ([id number]) [address] [place] [address] Anion gap [Moles/Vol] 11 mmol/L Normal 5-15 [facility] Comment on above: Performed By: #### C BCA, CMP, , 2776-04, 1987-08 #### [facility] ([id number]) [address] [place] [address] AST [Catalytic activity/Vol] 9 U/L Normal 0-41 [facility] Comment on above: Performed By: #### C BCA, CMP, , 2776-04, 1987-08 #### [facility] ([id number]) [address] [place] [address] Bilirubin [Mass/Vol] 0.3 mg/dL Normal 0.3-1.2 [facility] Comment on above: Performed By: #### C BCA, CMP, , 2776-04, 1987-08 #### [facility] ([id number]) [address] [place] [address] Calcium [Mass/Vol] 8.7 mg/dL Normal 8.5-10.5 [facility] Comment on above: Performed By: #### C BCA, CMP, , 2776-04, 1987-08 #### [facility] ([id number]) [address] [place] [address] Chloride [Moles/Vol] 103 mmol/L Normal 98-109 [facility] Comment on above: Performed By: #### C BCA, CMP, , 2776-04, 1987-08 #### [facility] ([id number]) [address] [place] [address] CO2 [Moles/Vol] 26 mmol/L Normal 22-32 [facility] Comment on above: Performed By: #### C BCA, CMP, , 2776-04, 1987-08 #### [facility] ([id number]) [address] [address] Creatinine [Mass/Vol] 2.33 mg/dL High 0.40-1.00 [facility] Comment on above: Result Comment: METH OD TRACEABLE TO IDMS STANDARD Performed By: #### C EDEL POOLE, , 2776-04, 1987-08 #### [facility] ([id number]) [address] [address] GFR/1.73 sq M.predicted among non-blacks MDRD (S/P/Bld) [Vol rate/Area] 24 mL/min/{1.73_m2} Low >59 [facility] Comment on above: Result Comment: Reported eGFR is based on the CKD-EPI 2020 equation that does not use a race coefficient. Performed By: #### C EDEL POOLE, , 2776-04, 1987-08 #### [facility] ([id number]) [address] [address] Glucose [Mass/Vol] 80 mg/dL Normal 65-99 [facility] Comment on above: Performed By: #### C EDEL POOLE, , 2776-04, 1987-08 #### [facility] ([id number]) [address] [address] Potassium [Moles/Vol] 3.9 mmol/L Normal 3.5-5.0 [facility] Comment on above: Performed By: #### C VIRGILIO CMP, , 2776-04, 1987-08 #### [facility] ([id number]) [address] [address] Protein [Mass/Vol] 5.1 g/dL Low 6.0-8.0 [facility] Comment on above: Performed By: #### C VIRGILIO CMP, , 2776-04, 1987-08 #### [facility] ([id number]) [address] [place] [address] Sodium [Moles/Vol] 140 mmol/L Normal 134-146 [facility] Comment on above: Performed By: #### C VIRGILIO CMP, , 2776-04, 1987-08 #### [facility] ([id number]) [address] [place] [address] Urea nitrogen [Mass/Vol] 67 mg/dL High 5-23 [facility] Comment on above: Performed By: #### C VIRGILIO, CMP, , 2776-04, 1987-08 #### [facility] ([id number]) [address] [place] [address] Calcium.ionized (Bld) [Mass/ Vol]on 10-24-2023 IONIZED CALCIUM 4.7 mg/dL Normal 4.5-5.3 [facility] Comment on above: Performed By: #### Shahla POOLE CMP, , 2776-04, 1987-08 #### [facility] ([id number]) [address], [address] [place] [address] HBV core Ab IA Qlon 10-24-19 ANTI HBc Negative Normal NEG [facility] Comment on above: Performed By: #### Shahla POOLE, CMP, , 2776-04, 1987-08 #### [facility] ([id number]) [address], [address] [place] [address] HBV surface Ag IA Qlon 10-23 HEPATITIS B SURF AG Negative Normal NEG [facility] Comment on above: Performed By: #### C VIRGILIO, CMP, , 2776-04, 1987-08 #### [facility] ([id number]) [address], [address] [place] [address] MAGNESIUMon 10-24-2023 Magnesium [Mass/Vol] 2.2 mg/dL Normal 1.8-2.6 [facility] Comment on above: Performed By: #### C VIRGILIO, CMP, , 2776-04, 1987-08 #### [facility] ([id number]) [address], [address] [place] [address] PHOSPHORUSon 10-24-2023 Phosphate [Mass/Vol] 3.4 mg/dL Normal 2.4-4.9 [facility] Comment on above: Performed By: #### C BCA, CMP, , 2776-04, 1987-08 #### [facility] ([id number]) [address] [place] [address] CBC AND AUTO DIFFon 10-23-19 24 Band form neutrophils/100 WBC (Bld) 2.0 % Normal [facility] Comment on above: Performed By: #### Shahla POOLE, CMP, , 2776-04, 1987-08 #### [facility] ([id number]) [address], [address] [place] [address] Erythrocyte distribution width (RBC) [Ratio] 14.6 % Normal 11.5-15.0 [facility] Comment on above: Performed By: #### Shahla POOLE, CMP, , 2776-04, 1987-08 #### [facility] ([id number]) [address], [facility] [address] [place] [address] Hematocrit (Bld) [Volume fraction] 31.6 % Low 35-47 [facility] Comment on above: Performed By: #### Shahla BCA, CMP, , 2776-04, 1987-08 #### [facility] ([id number]) [address], [facility] [address] [place] [address] Hemoglobin (Bld) [Mass/Vol] 10.5 g/dL Low 11.7-15.5 [facility] Comment on above: Performed By: #### Shahla BCA, CMP, , 2776-04, 1987-08 #### [facility] ([id number]) [address] [place] [address] Lymphocytes (Bld) [#/Vol] 2.0 10*3/uL Normal 1.0-3.5 [facility] Comment on above: Performed By: #### Shahla POOLE CMP, , 2776-04, 1987-08 #### [facility] ([id number]) [address], [address] [place] [address] Lymphocytes/100 WBC (Bld) 21.0 % Normal [facility] Comment on above: Performed By: #### Shahla POOLE, CMP, , 2776-04, 1987-08 #### [facility] ([id number]) [address], [address] [place] [address] MCH (RBC) [Entitic mass] 28.2 pg Normal 27-34 [facility] Comment on above: Performed By: #### Shahla POOLE, CMP, , 2776-04, 1987-08 #### [facility] ([id number]) [address] [place] [address] MCHC (RBC) [Mass/Vol] 33.3 g/dL Normal 32-36 [facility] [facility] Comment on above: Performed By: #### Shahla POOLE CMP, , 2776-04, 1987-08 #### [facility] ([id number]) [address] [place] [address] MCV (RBC) [Entitic vol] 85 fL Normal 80-100 [facility] Comment on above: Performed By: #### Shahla BCA, CMP, , 2776-04, 1987-08 #### [facility] ([id number]) [address] [place] [address] Monocytes (Bld) [#/Vol] 1.8 10*3/uL High 0-0.9 [facility] Comment on above: Performed By: #### C BCA, CMP, , 2776-04, 1987-08 #### [facility] ([id number]) [address] [place] [address] Monocytes/100 WBC (Bld) 19.0 % Normal [facility] Comment on above: Performed By: #### Shahla BCA, CMP, , 2776-04, 1987-08 #### [facility] ([id number]) [address] [place] [address] Neutrophils (Bld) [#/Vol] 5.8 10*3/uL Normal 1.5-6.6 [facility] Comment on above: Performed By: #### Shahla BCA, CMP, , 2776-04, 1987-08 #### [facility] ([id number]) [address] [place] [address] Platelet mean volume (Bld) [Entitic vol] 9.3 fL Normal 7-12 [facility] Comment on above: Performed By: #### Shahla BCA, CMP, , 2776-04, 1987-08 #### [facility] ([id number]) [address] [place] [address] Platelets (Bld) [#/Vol] 297 10*3/uL Normal 150-450 [facility] Comment on above: Performed By: #### Shahla BCA, CMP, , 2776-04, 1987-08 #### [facility] ([id number]) [address] [place] [address] RBC COUNT 3.73 X10E12/L Low 3.80-5.20 [facility] Comment on above: Performed By: #### Shahla BCA, CMP, , 2776-04, 1987-08 #### [facility] ([id number]) [address] [place] [address] RBC morphology finding Nom (Bld) NORMAL Normal [facility] Comment on above: Performed By: #### C BCA, CMP, , 2776-04, 1987-08 #### [facility] ([id number]) [address] [place] [address] SEG NEUTROPHIL 58.0 % Normal [facility] Comment on above: Performed By: #### C BCA, CMP, , 2776-04, 1987-08 #### [facility] ([id number]) [address] [place] [address] WBC (Bld) [#/Vol] 9.6 10*3/uL Normal 4.0-11.0 [facility] Comment on above: Performed By: #### C BCA, CMP, , 2776-04, 1987-08 #### [facility] ([id number]) [address] [place] [address] COMPREHENSIVE METABOLIC PANE [facility] 10-23-2023 Albumin [Mass/Vol] 3.2 g/dL Normal 3.2-5.3 [facility] Comment on above: Performed By: #### C BCA, CMP, , 2776-04, 1987-08 #### [facility] ([id number]) [address] [place] [address] ALP [Catalytic activity/Vol] 38 U/L Low 39-130 [facility] Comment on above: Performed By: #### C BCA, CMP, , 2776-04, 1987-08 #### [facility] ([id number]) [address] [place] [address] ALT [Catalytic activity/Vol] 10 U/L Normal 0-31 [facility] Comment on above: Performed By: #### C BCA, CMP, , 2776-04, 1987-08 #### [facility] ([id number]) [address] [place] [address] Anion gap [Moles/Vol] 9 mmol/L Normal 5-15 [facility] Comment on above: Performed By: #### C BCA, CMP, , 2776-04, 1987-08 #### [facility] ([id number]) [address] [place] [address] AST [Catalytic activity/Vol] 10 U/L Normal 0-41 [facility] Comment on above: Performed By: #### C BCA, CMP, , 2776-04, 1987-08 #### [facility] ([id number]) [address] [place] [address] Bilirubin [Mass/Vol] 0.3 mg/dL Normal 0.3-1.2 [facility] Comment on above: Performed By: #### C BCA, CMP, , 2776-04, 1987-08 #### [facility] ([id number]) [address] [place] [address] Calcium [Mass/Vol] 8.7 mg/dL Normal 8.5-10.5 [facility] Comment on above: Performed By: #### C BCA, CMP, , 2776-04, 1987-08 #### [facility] ([id number]) [address] [place] [address] Chloride [Moles/Vol] 102 mmol/L Normal 98-109 [facility] Comment on above: Performed By: #### C BCA, CMP, , 2776-04, 1987-08 #### [facility] ([id number]) [address] [place] [address] CO2 [Moles/Vol] 29 mmol/L Normal 22-32 [facility] Comment on above: Performed By: #### C BCA, CMP, , 2776-04, 1987-08 #### [facility] ([id number]) [address] [place] [address] Creatinine [Mass/Vol] 2.68 mg/dL High 0.40-1.00 [facility] Comment on above: Result Comment: METH OD TRACEABLE TO IDMS STANDARD Performed By: #### C EDEL POOLE, , 2776-04, 1987-08 #### [facility] ([id number]) [address] [place] [address] GFR/1.73 sq M.predicted among non-blacks MDRD (S/P/Bld) [Vol rate/Area] 20 mL/min/{1.73_m2} Low >59 [facility] Comment on above: Result Comment: Reported eGFR is based on the CKD-EPI 2020 equation that does not use a race coefficient. Performed By: #### C EDEL POOLE, , 2776-04, 1987-08 #### [facility] ([id number]) [address] [place] [address] Glucose [Mass/Vol] 86 mg/dL Normal 65-99 [facility] Comment on above: Performed By: #### C EDEL POOLE, , 2776-04, 1987-08 #### [facility] ([id number]) [address] [place] [address] Potassium [Moles/Vol] 3.7 mmol/L Normal 3.5-5.0 [facility] Comment on above: Performed By: #### C VIRGILIO CMP, , 2776-04, 1987-08 #### [facility] ([id number]) [address] [place] [address] Protein [Mass/Vol] 5.2 g/dL Low 6.0-8.0 [facility] Comment on above: Performed By: #### C BCA, CMP, , 2776-04, 1987-08 #### [facility] ([id number]) [address] [place] [address] Sodium [Moles/Vol] 140 mmol/L Normal 134-146 [facility] Comment on above: Performed By: #### C BCA, CMP, , 2776-04, 1987-08 #### [facility] ([id number]) [address] [place] [address] Urea nitrogen [Mass/Vol] 72 mg/dL High 5-23 [facility] Comment on above: Performed By: #### C BCA, CMP, , 2776-04, 1987-08 #### [facility] ([id number]) [address] [place] [address] Calcium.ionized (Bld) [Mass/ Vol]on 10-23-2023 IONIZED CALCIUM 4.8 mg/dL Normal 4.5-5.3 [facility] Comment on above: Performed By: #### C VIRGILIO, CMP, , 2776-04, 1987-08 #### [facility] ([id number]) [address] [place] [address] MAGNESIUMon 10-23-2023 Magnesium [Mass/Vol] 2.4 mg/dL Normal 1.8-2.6 [facility] Comment on above: Performed By: #### C BCA, CMP, , 2776-04, 1987-08 #### [facility] ([id number]) [address] [place] [address] PHOSPHORUSon 10-23-2023 Phosphate [Mass/Vol] 4.0 mg/dL Normal 2.4-4.9 [facility] Comment on above: Performed By: #### C BCA, CMP, , 2776-04, 1987-08 #### [facility] ([id number]) [address] [place] [address] CBC AND AUTO DIFFon 10-22-19 Erythrocyte distribution width (RBC) [Ratio] 15.0 % Normal 11.5-15.0 [facility] Comment on above: Performed By: #### Shahla POOLE CMP, , 2776-04, 1987-08 #### [facility] ([id number]) [address], [facility] [address] [place] [address] Hematocrit (Bld) [Volume fraction] 32.1 % Low 35-47 [facility] Comment on above: Performed By: #### Shahla POOLE [facility], , 2776-04, 1987-08 #### [facility] ([id number]) [address], [facility] [address] [place] [address] Hemoglobin (Bld) [Mass/Vol] 11.0 g/dL Low 11.7-15.5 [facility] Comment on above: Performed By: #### C VIRGILIO [facility], , 2776-04, 1987-08 #### [facility] ([id number]) [address] [address] [place] [address] Lymphocytes (Bld) [#/Vol] 1.2 10*3/uL Normal 1.0-3.5 [facility] Comment on above: Performed By: #### Shahla POOLE CMP, , 2776-04, 1987-08 #### [facility] ([id number]) [address] [address] [place] [address] Lymphocytes/100 WBC (Bld) 14.0 % Normal [facility] Comment on above: Performed By: #### Shahla BCA, CMP, , 2776-04, 1987-08 #### [facility] ([id number]) [address] [place] [address] MCH (RBC) [Entitic mass] 28.8 pg Normal 27-34 [facility] Comment on above: Performed By: #### C BCA, CMP, , 2776-04, 1987-08 #### [facility] ([id number]) [address] [place] [address] MCHC (RBC) [Mass/Vol] 34.3 g/dL Normal 32-36 [facility] Comment on above: Performed By: #### C BCA, CMP, , 2776-04, 1987-08 #### [facility] ([id number]) [address] [place] [address] MCV (RBC) [Entitic vol] 84 fL Normal 80-100 [facility] Comment on above: Performed By: #### Shahla BCA, CMP, , 2776-04, 1987-08 #### [facility] ([id number]) [address] [place] [address] Metamyelocytes/100 WBC (Bld) 1.0 % Normal [facility] Comment on above: Performed By: #### C BCA, CMP, , 2776-04, 1987-08 #### [facility] ([id number]) [address] [place] [address] Monocytes (Bld) [#/Vol] 0.6 10*3/uL Normal 0-0.9 [facility] Comment on above: Performed By: #### C BCA, CMP, , 2776-04, 1987-08 #### [facility] ([id number]) [address] [place] [address] Monocytes/100 WBC (Bld) 7.0 % Normal [facility] Comment on above: Performed By: #### C BCA, CMP, , 2776-04, 1987-08 #### [facility] ([id number]) [address] [place] [address] MYELOCYTE 3.0 % Normal [facility] Comment on above: Performed By: #### C BCA, CMP, , 2776-04, 1987-08 #### [facility] ([id number]) [address] [place] [address] Neutrophils (Bld) [#/Vol] 6.7 10*3/uL High 1.5-6.6 [facility] Comment on above: Performed By: #### C BCA, CMP, , 2776-04, 1987-08 #### [facility] ([id number]) [address] [place] [address] Platelet mean volume (Bld) [Entitic vol] 9.4 fL Normal 7-12 [facility] Comment on above: Performed By: #### Shahla BCA, CMP, , 2776-04, 1987-08 #### [facility] ([id number]) [address] [place] [address] Platelets (Bld) [#/Vol] 394 10*3/uL Normal 150-450 [facility] Comment on above: Performed By: #### Shahla BCA, CMP, , 2776-04, 1987-08 #### [facility] ([id number]) [address] [place] [address] RBC COUNT 3.83 X10E12/L Normal 3.80-5.20 [facility] Comment on above: Performed By: #### C BCA, CMP, , 2776-04, 1987-08 #### [facility] ([id number]) [address] [place] [address] RBC morphology finding Nom (Bld) NORMAL Normal [facility] Comment on above: Performed By: #### C BCA, CMP, , 2776-04, 1987-08 #### [facility] ([id number]) [address] [place] [address] SEG NEUTROPHIL 75.0 % Normal [facility] Comment on above: Performed By: #### C BCA, CMP, , 2776-04, 1987-08 #### [facility] ([id number]) [address] [place] [address] WBC (Bld) [#/Vol] 8.9 10*3/uL Normal 4.0-11.0 [facility] Comment on above: Performed By: #### C BCA, CMP, , 2776-04, 1987-08 #### [facility] ([id number]) [address] [place] [address] COMPREHENSIVE METABOLIC PANE Phu 10-22-2023 Albumin [Mass/Vol] 3.4 g/dL Normal 3.2-5.3 [facility] Comment on above: Performed By: #### C BCA, CMP, , 2776-04, 1987-08 #### [facility] ([id number]) [address] [place] [address] ALP [Catalytic activity/Vol] 43 U/L Normal 39-130 [facility] Comment on above: Performed By: #### C BCA, CMP, , 2776-04, 1987-08 #### [facility] ([id number]) [address] [place] [address] ALT [Catalytic activity/Vol] 9 U/L Normal 0-31 [facility] Comment on above: Performed By: #### C BCA, CMP, , 2776-04, 1987-08 #### [facility] ([id number]) [address] [place] [address] Anion gap [Moles/Vol] 14 mmol/L Normal 5-15 [facility] Comment on above: Performed By: #### C BCA, CMP, , 2776-04, 1987-08 #### [facility] ([id number]) [address] [place] [address] AST [Catalytic activity/Vol] 12 U/L Normal 0-41 [facility] Comment on above: Performed By: #### C BCA, CMP, , 2776-04, 1987-08 #### [facility] ([id number]) [address] [place] [address] Bilirubin [Mass/Vol] 0.3 mg/dL Normal 0.3-1.2 [facility] Comment on above: Performed By: #### C BCA, CMP, , 2776-04, 1987-08 #### [facility] ([id number]) [address] [place] [address] Calcium [Mass/Vol] 8.9 mg/dL Normal 8.5-10.5 [facility] Comment on above: Performed By: #### C BCA, CMP, , 2776-04, 1987-08 #### [facility] ([id number]) [address] [place] [address] Chloride [Moles/Vol] 99 mmol/L Normal 98-109 [facility] Comment on above: Performed By: #### C BCA, CMP, , 2776-04, 1987-08 #### [facility] ([id number]) [address] [place] [address] CO2 [Moles/Vol] 25 mmol/L Normal 22-32 [facility] Comment on above: Performed By: #### C BCA, CMP, , 2776-04, 1987-08 #### [facility] ([id number]) [address] [place] [address] Creatinine [Mass/Vol] 3.16 mg/dL High 0.40-1.00 [facility] Comment on above: Result Comment: METH OD TRACEABLE TO IDMS STANDARD Performed By: #### C EDEL POOLE, , 2776-04, 1987-08 #### [facility] ([id number]) [address], [facility] [address] [place] [address] GFR/1.73 sq M.predicted among non-blacks MDRD (S/P/Bld) [Vol rate/Area] 16 mL/min/{1.73_m2} Low >59 [facility] Comment on above: Result Comment: Reported eGFR is based on the CKD-EPI 2020 equation that does not use a race coefficient. Performed By: #### C EDEL POOLE, , 2776-04, 1987-08 #### [facility] ([id number]) [address] [address] Glucose [Mass/Vol] 109 mg/dL High 65-99 [facility] Comment on above: Performed By: #### C EDEL POOLE, , 2776-04, 1987-08 #### [facility] ([id number]) [address] [address] Potassium [Moles/Vol] 4.0 mmol/L Normal 3.5-5.0 [facility] Comment on above: Performed By: #### C EDEL POOLE, , 2776-04, 1987-08 #### [facility] ([id number]) [address] [address] [place] [address] Protein [Mass/Vol] 5.7 g/dL Low 6.0-8.0 [facility] Comment on above: Performed By: #### C VIRGILIO CMP, , 2776-04, 1987-08 #### [facility] ([id number]) [address] [place] [address] Sodium [Moles/Vol] 138 mmol/L Normal 134-146 [facility] Comment on above: Performed By: #### C VIRGILIO, CMP, , 2776-04, 1987-08 #### [facility] ([id number]) [address] [place] [address] Urea nitrogen [Mass/Vol] 79 mg/dL High 5-23 [facility] Comment on above: Performed By: #### C VIRGILIO, CMP, , 2776-04, 1987-08 #### [facility] ([id number]) [address], [facility] [address] [place] [address] Calcium.ionized (Bld) [Mass/ Vol]on 10-22-2023 IONIZED CALCIUM 4.5 mg/dL Normal 4.5-5.3 [facility] Comment on above: Performed By: #### Shahla POOLE, CMP, , 2776-04, 1987-08 #### [facility] ([id number]) [address], [facility] [address] [place] [address] MAGNESIUMon 10-22-2023 Magnesium [Mass/Vol] 2.5 mg/dL Normal 1.8-2.6 [facility] Comment on above: Performed By: #### Shahla POOLE, CMP, , 2776-04, 1987-08 #### [facility] ([id number]) [address], [facility] [address] [place] [address] PHOSPHORUSon 10-22-2023 Phosphate [Mass/Vol] 4.7 mg/dL Normal 2.4-4.9 [facility] Comment on above: Performed By: #### Shahla POOLE, CMP, , 2776-04, 1987-08 #### [facility] ([id number]) [address], [facility] [address] [place] [address] Basement membrane IgG Qn (S) on 10-21-2023 Glomerular Base Memb IgG <0.2 Normal <1. 0 (Negative) [facility] Comment on above: Result Comment: NOTE Test Performed by: [facility] [address] [place] [address] Immigration Officer: Ledy Son Ph.D.; CLIA# [id number] Performed By: #### C BCA, CMP, , 2776-04, 1987-08 #### [facility] ([id number]) [address] [place] [address] CBC AND AUTO DIFFon 10-21-19 24 ABSOLUTE BASOPHIL 0.0 X10E9/L Normal 0.0-0.2 [facility] Comment on above: Performed By: #### C BCA, CMP, , 2776-04, 1987-08 #### [facility] ([id number]) [address] [place] [address] ABSOLUTE NEUTROPHIL 8.8 X10E9/L High 1.5-6.6 [facility] Comment on above: Performed By: #### C BCA, CMP, , 2776-04, 1987-08 #### [facility] ([id number]) [address] [place] [address] Basophils/100 WBC (Bld) 0.1 % Normal [facility] Comment on above: Performed By: #### Shahla BCA, CMP, , 2776-04, 1987-08 #### [facility] ([id number]) [address] [place] [address] Eosinophils (Bld) [#/Vol] 0.0 10*3/uL Normal 0.0-0.4 [facility] Comment on above: Performed By: #### C BCA, CMP, , 2776-04, 1987-08 #### [facility] ([id number]) [address] [place] [address] Eosinophils/100 WBC (Bld) 0.0 % Normal [facility] Comment on above: Performed By: #### C VIRGILIO CMP, , 2776-04, 1987-08 #### [facility] ([id number]) [address] [place] [address] Erythrocyte distribution width (RBC) [Ratio] 15.1 % High 11.5-15.0 [facility] Comment on above: Performed By: #### C VIRGILIO, CMP, , 2776-04, 1987-08 #### [facility] ([id number]) [address], [facility] [address] [place] [address] Hematocrit (Bld) [Volume fraction] 30.9 % Low 35-47 [facility] Comment on above: Performed By: #### Shahal POOLE CMP, , 2776-04, 1987-08 #### [facility] ([id number]) [address] [place] [address] Hemoglobin (Bld) [Mass/Vol] 10.7 g/dL Low 11.7-15.5 [facility] Comment on above: Performed By: #### Shahla POOLE, CMP, , 2776-04, 1987-08 #### [facility] ([id number]) [address] [place] [address] Lymphocytes (Bld) [#/Vol] 1.1 10*3/uL Normal 1.0-3.5 [facility] Comment on above: Performed By: #### C BCA, CMP, , 2776-04, 1987-08 #### [facility] ([id number]) [address] [place] [address] Lymphocytes/100 WBC (Bld) 10.9 % Normal [facility] Comment on above: Performed By: #### Shahla BCA, CMP, , 2776-04, 1987-08 #### [facility] ([id number]) [address] [place] [address] MCH (RBC) [Entitic mass] 29.1 pg Normal 27-34 [facility] Comment on above: Performed By: #### C BCA, CMP, , 2776-04, 1987-08 #### [facility] ([id number]) [address] [place] [address] MCHC (RBC) [Mass/Vol] 34.7 g/dL Normal 32-36 [facility] Comment on above: Performed By: #### C VIRGILIO, CMP, , 2776-04, 1987-08 #### [facility] ([id number]) [address] [place] [address] MCV (RBC) [Entitic vol] 84 fL Normal 80-100 P [facility] Comment on above: Performed By: #### C BCA, CMP, , 2776-04, 1987-08 #### [facility] ([id number]) [address] [place] [address] Monocytes (Bld) [#/Vol] 0.2 10*3/uL Normal 0-0.9 [facility] Comment on above: Performed By: #### C VIRGILIO, CMP, , 2776-04, 1987-08 #### [facility] ([id number]) [address] [place] [address] Monocytes/100 WBC (Bld) 2.2 % Normal P [facility] Comment on above: Performed By: #### C BCA, CMP, , 2776-04, 1987-08 #### [facility] ([id number]) [address] [place] [address] Neutrophils/100 WBC (Bld) 86.8 % Normal [facility] Comment on above: Performed By: #### C BCA, CMP, , 2776-04, 1987-08 #### [facility] ([id number]) [address], [address] [place] [address] Platelet mean volume (Bld) [Entitic vol] 9.5 fL Normal 7-12 [facility] Comment on above: Performed By: #### C BCA, CMP, , 2776-04, 1987-08 #### [facility] ([id number]) [address], [address] [place] [address] Platelets (Bld) [#/Vol] 297 10*3/uL Normal 150-450 [facility] Comment on above: Performed By: #### C BCA, CMP, , 2776-04, 1987-08 #### [facility] ([id number]) [address] [place] [address] RBC COUNT 3.69 X10E12/L Low 3.80-5.20 [facility] Comment on above: Performed By: #### C BCA, CMP, , 2776-04, 1987-08 #### [facility] ([id number]) [address], [address] [place] [address] WBC (Bld) [#/Vol] 10.2 10*3/uL Normal 4.0-11.0 [facility] Comment on above: Performed By: #### C BCA, CMP, , 2776-04, 1987-08 #### [facility] ([id number]) [address], [address] [place] [address] COMPREHENSIVE METABOLIC PANE Phu 10-21-2023 Albumin [Mass/Vol] 3.6 g/dL Normal 3.2-5.3 [facility] Comment on above: Performed By: #### C BCA, CMP, , 2776-04, 1987-08 #### [facility] ([id number]) [address] [place] [address] ALP [Catalytic activity/Vol] 46 U/L Normal 39-130 [facility] Comment on above: Performed By: #### C BCA, CMP, , 2776-04, 1987-08 #### [facility] ([id number]) [address] [place] [address] ALT [Catalytic activity/Vol] 15 U/L Normal 0-31 [facility] Comment on above: Performed By: #### C BCA, CMP, , 2776-04, 1987-08 #### [facility] ([id number]) [address] [place] [address] Anion gap [Moles/Vol] 12 mmol/L Normal 5-15 [facility] Comment on above: Performed By: #### C BCA, CMP, , 2776-04, 1987-08 #### [facility] ([id number]) [address] [place] [address] AST [Catalytic activity/Vol] 18 U/L Normal 0-41 [facility] Comment on above: Performed By: #### C BCA, CMP, , 2776-04, 1987-08 #### [facility] ([id number]) [address] [place] [address] Bilirubin [Mass/Vol] 0.3 mg/dL Normal 0.3-1.2 [facility] Comment on above: Performed By: #### C BCA, CMP, , 2776-04, 1987-08 #### [facility] ([id number]) [address] [place] [address] Calcium [Mass/Vol] 8.8 mg/dL Normal 8.5-10.5 [facility] Comment on above: Performed By: #### C BCA, CMP, , 2776-04, 1987-08 #### [facility] ([id number]) [address] [place] [address] Chloride [Moles/Vol] 96 mmol/L Low 98-109 [facility] Comment on above: Performed By: #### C VIRGILIO CMP, , 2776-04, 1987-08 #### [facility] ([id number]) [address] [place] [address] CO2 [Moles/Vol] 28 mmol/L Normal 22-32 [facility] Comment on above: Performed By: #### C VIRGILIO CMP, , 2776-04, 1987-08 #### [facility] ([id number]) [address] [place] [address] Creatinine [Mass/Vol] 3.71 mg/dL High 0.40-1.00 [facility] Comment on above: Result Comment: METH OD TRACEABLE TO IDMS STANDARD Performed By: #### C EDEL POOLE, , 2776-04, 1987-08 #### [facility] ([id number]) [address] [place] [address] GFR/1.73 sq M.predicted among non-blacks MDRD (S/P/Bld) [Vol rate/Area] 13 mL/min/{1.73_m2} Low >59 [facility] Comment on above: Result Comment: Reported eGFR is based on the CKD-EPI 2020 equation that does not use a race coefficient. Performed By: #### C BCA, CMP, , 2776-04, 1987-08 #### [facility] ([id number]) [address] [place] [address] Glucose [Mass/Vol] 131 mg/dL High 65-99 [facility] Comment on above: Performed By: #### C BCA, CMP, , 2776-04, 1987-08 #### [facility] ([id number]) [address] [place] [address] Potassium [Moles/Vol] 4.6 mmol/L Normal 3.5-5.0 [facility] Comment on above: Performed By: #### C VIRGILIO, CMP, , 2776-04, 1987-08 #### [facility] ([id number]) [address] [place] [address] Protein [Mass/Vol] 5.9 g/dL Low 6.0-8.0 [facility] Comment on above: Performed By: #### C VIRGILIO, CMP, , 2776-04, 1987-08 #### [facility] ([id number]) [address] [place] [address] Sodium [Moles/Vol] 136 mmol/L Normal 134-146 [facility] Comment on above: Performed By: #### C VIRGILIO, CMP, , 2776-04, 1987-08 #### [facility] ([id number]) [address] [place] [address] Urea nitrogen [Mass/Vol] 80 mg/dL High 5-23 [facility] Comment on above: Performed By: #### C BCA, CMP, , 2776-04, 1987-08 #### [facility] ([id number]) [address] [place] [address] Calcium.ionized (Bld) [Mass/ Vol]on 10-21-2023 IONIZED CALCIUM 4.5 mg/dL Normal 4.5-5.3 [facility] Comment on above: Performed By: #### C BCA, CMP, , 2776-04, 1987-08 #### [facility] ([id number]) [address] [place] [address] MAGNESIUMon 10-21-2023 Magnesium [Mass/Vol] 2.4 mg/dL Normal 1.8-2.6 [facility] Comment on above: Performed By: #### C BCA, CMP, , 2776-04, 1987-08 #### [facility] ([id number]) [address] [place] [address] PHOSPHORUSon 10-21-2023 Phosphate [Mass/Vol] 5.5 mg/dL High 2.4-4.9 [facility] Comment on above: Performed By: #### C BCA, CMP, , 2776-04, 1987-08 #### [facility] ([id number]) [address] [place] [address] CBC AND AUTO DIFFon 10-20-19 ABSOLUTE BASOPHIL 0.0 X10E9/L Normal 0.0-0.2 [facility] Comment on above: Performed By: #### C BCA, CMP, , 2776-04, 1987-08 #### [facility] ([id number]) [address] [place] [address] ABSOLUTE NEUTROPHIL 14.6 X10E9/L High 1.5-6.6 [facility] Comment on above: Performed By: #### C BCA, CMP, , 2776-04, 1987-08 #### [facility] ([id number]) [address] [place] [address] Basophils/100 WBC (Bld) 0.1 % Normal P [facility] Comment on above: Performed By: #### C BCA, CMP, , 2776-04, 1987-08 #### [facility] ([id number]) [address] [place] [address] Eosinophils (Bld) [#/Vol] 0.0 10*3/uL Normal 0.0-0.4 [facility] Comment on above: Performed By: #### C VIRGILIO, CMP, , 2776-04, 1987-08 #### [facility] ([id number]) [address] [address] [place] [address] Eosinophils/100 WBC (Bld) 0.0 % Normal [facility] Comment on above: Performed By: #### Shahla BCA, CMP, , 2776-04, 1987-08 #### [facility] ([id number]) [address] [place] [address] Erythrocyte distribution width (RBC) [Ratio] 15.3 % High 11.5-15.0 [facility] Comment on above: Performed By: #### Shahla POOLE, CMP, , 2776-04, 1987-08 #### [facility] ([id number]) [address] [place] [address] Hematocrit (Bld) [Volume fraction] 32.0 % Low 35-47 [facility] Comment on above: Performed By: #### Shahla POOLE, CMP, , 2776-04, 1987-08 #### [facility] ([id number]) [address] [address] [place] [address] Hemoglobin (Bld) [Mass/Vol] 10.5 g/dL Low 11.7-15.5 [facility] Comment on above: Performed By: #### Shahla POOLE, CMP, , 2776-04, 1987-08 #### [facility] ([id number]) [address] [address] [place] [address] Lymphocytes (Bld) [#/Vol] 1.7 10*3/uL Normal 1.0-3.5 [facility] Comment on above: Performed By: #### Shahla BCA, CMP, , 2776-04, 1987-08 #### [facility] ([id number]) [address] [place] [address] Lymphocytes/100 WBC (Bld) 10.3 % Normal [facility] Comment on above: Performed By: #### C VIRGILIO CMP, , 2776-04, 1987-08 #### [facility] ([id number]) [address], [facility] [address] [place] [address] MCH (RBC) [Entitic mass] 27.7 pg Normal 27-34 [facility] Comment on above: Performed By: #### Shahla BCA, CMP, , 2776-04, 1987-08 #### [facility] ([id number]) [address], [facility] [address] [place] [address] MCHC (RBC) [Mass/Vol] 32.9 g/dL Normal 32-36 [facility] Comment on above: Performed By: #### Shahla POOLE CMP, , 2776-04, 1987-08 #### [facility] ([id number]) [address], [facility] [address] [place] [address] MCV (RBC) [Entitic vol] 84 fL Normal 80-100 P [facility] Comment on above: Performed By: #### Shahla POOLE, CMP, , 2776-04, 1987-08 #### [facility] ([id number]) [address], [facility] [address] [place] [address] Monocytes (Bld) [#/Vol] 0.4 10*3/uL Normal 0-0.9 [facility] Comment on above: Performed By: #### Shahla BCA, CMP, , 2776-04, 1987-08 #### [facility] ([id number]) [address], [facility] [address] [place] [address] Monocytes/100 WBC (Bld) 2.2 % Normal P [facility] Comment on above: Performed By: #### Shahla BCA, CMP, , 2776-04, 1987-08 #### [facility] ([id number]) [address] [place] [address] Neutrophils/100 WBC (Bld) 87.4 % Normal [facility] Comment on above: Performed By: #### C BCA, CMP, , 2776-04, 1987-08 #### [facility] ([id number]) [address] [place] [address] Platelet mean volume (Bld) [Entitic vol] 9.3 fL Normal 7-12 [facility] Comment on above: Performed By: #### C BCA, CMP, , 2776-04, 1987-08 #### [facility] ([id number]) [address] [place] [address] Platelets (Bld) [#/Vol] 350 10*3/uL Normal 150-450 [facility] Comment on above: Performed By: #### C BCA, CMP, , 2776-04, 1987-08 #### [facility] ([id number]) [address] [place] [address] RBC COUNT 3.80 X10E12/L Normal 3.80-5.20 [facility] Comment on above: Performed By: #### C BCA, CMP, , 2776-04, 1987-08 #### [facility] ([id number]) [address] [place] [address] WBC (Bld) [#/Vol] 16.7 10*3/uL High 4.0-11.0 [facility] Comment on above: Performed By: #### C BCA, CMP, , 2776-04, 1987-08 #### [facility] ([id number]) [address] [place] [address] COMPREHENSIVE METABOLIC PANE Phu 10-20-2023 Albumin [Mass/Vol] 3.6 g/dL Normal 3.2-5.3 [facility] Comment on above: Performed By: #### C BCA, CMP, , 2776-04, 1987-08 #### [facility] ([id number]) [address] [place] [address] ALP [Catalytic activity/Vol] 53 U/L Normal 39-130 [facility] Comment on above: Performed By: #### C BCA, CMP, , 2776-04, 1987-08 #### [facility] ([id number]) [address] [place] [address] ALT [Catalytic activity/Vol] 14 U/L Normal 0-31 [facility] Comment on above: Performed By: #### C BCA, CMP, , 2776-04, 1987-08 #### [facility] ([id number]) [address] [place] [address] Anion gap [Moles/Vol] 13 mmol/L Normal 5-15 [facility] Comment on above: Performed By: #### C BCA, CMP, , 2776-04, 1987-08 #### [facility] ([id number]) [address] [place] [address] AST [Catalytic activity/Vol] 27 U/L Normal 0-41 [facility] Comment on above: Performed By: #### C BCA, CMP, , 2776-04, 1987-08 #### [facility] ([id number]) [address] [place] [address] Bilirubin [Mass/Vol] 0.3 mg/dL Normal 0.3-1.2 [facility] Comment on above: Performed By: #### C BCA, CMP, , 2776-04, 1987-08 #### [facility] ([id number]) [address] [place] [address] Calcium [Mass/Vol] 9.1 mg/dL Normal 8.5-10.5 [facility] Comment on above: Performed By: #### C BCA, CMP, , 2776-04, 1987-08 #### [facility] ([id number]) [address] [place] [address] Chloride [Moles/Vol] 94 mmol/L Low 98-109 [facility] Comment on above: Performed By: #### C BCA, CMP, , 2776-04, 1987-08 #### [facility] ([id number]) [address] [place] [address] CO2 [Moles/Vol] 28 mmol/L Normal 22-32 [facility] Comment on above: Performed By: #### C BCA, CMP, , 2776-04, 1987-08 #### [facility] ([id number]) [address] [place] [address] Creatinine [Mass/Vol] 3.58 mg/dL High 0.40-1.00 [facility] Comment on above: Result Comment: METH OD TRACEABLE TO IDMS STANDARD Performed By: #### C BCA, CMP, , 2776-04, 1987-08 #### [facility] ([id number]) [address] [place] [address] GFR/1.73 sq M.predicted among non-blacks MDRD (S/P/Bld) [Vol rate/Area] 14 mL/min/{1.73_m2} Low >59 [facility] Comment on above: Result Comment: Reported eGFR is based on the CKD-EPI 2020 equation that does not use a race coefficient. Performed By: #### C BCA, CMP, , 2776-04, 1987-08 #### [facility] ([id number]) [address] [place] [address] Glucose [Mass/Vol] 133 mg/dL High 65-99 [facility] Comment on above: Performed By: #### C BCA, CMP, , 2776-04, 1987-08 #### [facility] ([id number]) [address] [place] [address] Potassium [Moles/Vol] 4.8 mmol/L Normal 3.5-5.0 [facility] Comment on above: Performed By: #### C BCA, CMP, , 2776-04, 1987-08 #### [facility] ([id number]) [address] [place] [address] Protein [Mass/Vol] 6.1 g/dL Normal 6.0-8.0 [facility] Comment on above: Performed By: #### C BCA, CMP, , 2776-04, 1987-08 #### [facility] ([id number]) [address] [place] [address] Sodium [Moles/Vol] 135 mmol/L Normal 134-146 [facility] Comment on above: Performed By: #### C BCA, CMP, , 2776-04, 1987-08 #### [facility] ([id number]) [address] [place] [address] Urea nitrogen [Mass/Vol] 70 mg/dL High 5-23 [facility] Comment on above: Performed By: #### C BCA, CMP, , 2776-04, 1987-08 #### [facility] ([id number]) [address] [place] [address] Calcium.ionized (Bld) [Mass/ Vol]on 10-20-2023 IONIZED CALCIUM 4.6 mg/dL Normal 4.5-5.3 [facility] Comment on above: Performed By: #### C BCA, CMP, 49373-2, 2777-1, 1987- #### [facility] ([id number]) [address] [place] [address] IR BIOPSY RENAL PERC RTon IR BIOPSY [...] Mann MD on 10/20/2023 3:13 PM Normal [facility] MAGNESIUMon 10-20-2023 Magnesium [Mass/Vol] 2.3 mg/dL Normal 1.8-2.6 [facility] Comment on above: Performed By: #### C BCA, CMP, 73154-4, 2776-04, 1987-08 #### [facility] ([id number]) [address] [place] [address] [address] [place] [address] PHOSPHORUSon 10-20-2023 Phosphate [Mass/Vol] 6.3 mg/dL High 2.4-4.9 [facility] Comment on above: Performed By: #### C BCA, CMP, , 2776-04, 1987-08 #### [facility] ([id number]) [address] [place] [address], [address] [place] [address] Surgical Pathologyon 024 Surgical Pathology Normal [facility] Comment on above: Result Comment: [facility] [address] [place] [address] Surgical Pathology Consultation ADDENDUM MI Patient Name:DANIELLE MONTANA:1965 (Age: 58)Gender:FTaken:4Reported:10/24/2023hysician(s):Wanda Mendez ([phone])Copy To:MD Natasha ROSALES M.D. Rec. #:[id number]: #[id number] Final Pathologic Diagnosis Right kidney, needle biopsy: Specimen sent to [facility]. Report Electronically Signed Out [facility]/10/24/2023Trace Meza MD Addendum (PHS) Date Reported: 10/24/2023 Results of routine histology and immunofluorescence dated 10/24/2023 are received from Deidra Bustos M.D., [facility], [address] [place] [address] and are as follows: Final Diagnosis: Kidney, [...] Please see the complete report from [facility] in the patient's EMR. Electronically Signed Out Trace Meza MD Addendum (PHS) Date Reported: 11/02/2023 Results of Addendum (Electron Microscopy) dated are received from Deidra Bustos M.D., [facility], [address] [place] [address] [place] and are as follows: Paraffin-based immunofluorescence [...] case. Please see the complete report from [facility] in the patient's EMR. Electronically Signed Out Trace Meza MD Addendum ([facility]) Date Reported: 11/08/2023 Results of Mass Spectrometry dated 11/07/2023 are received from Adan Yates M.D., Ph.D., [facility], [address] [place] [address] [place] and are as follows: MASS SPECTROMETRY Liquid chromatography tandem mass spectrometry (LC MS/MS) was performed on peptides extracted from glomeruli that were microdissected from the paraffin-embedded specimen. LC MS/MS did not detect a peptide profile consistent with any of the following antigens: PLA2R, THSD7A, EXT1/EXT2, NELL1, SEMA3B, CNTN1, NCAM1, PCSK6, PCDH7, FAT1 or NDNF. Please see the complete report from [facility] (more content not included)... CBC AND AUTO DIFFon 10-19-19 24 Band form neutrophils/100 WBC (Bld) 1.0 % Normal [facility] Comment on above: Performed By: #### C EDEL POOLE, , 2776-04, 1987-08 #### [facility] ([id number]) [address] [address] Erythrocyte distribution width (RBC) [Ratio] 14.9 % Normal 11.5-15.0 [facility] Comment on above: Performed By: #### Shahla POOLE CMP, , 2776-04, 1987-08 #### [facility] ([id number]) [address], [facility] [address] [place] [address] Hematocrit (Bld) [Volume fraction] 34.4 % Low 35-47 [facility] Comment on above: Performed By: #### C VIRGILIO CMP, , 2776-04, 1987-08 #### [facility] ([id number]) [address], [address] [address] Hemoglobin (Bld) [Mass/Vol] 11.4 g/dL Low 11.7-15.5 [facility] Comment on above: Performed By: #### C VIRGILIO CMP, , 2776-04, 1987-08 #### [facility] ([id number]) [address] [address] Lymphocytes (Bld) [#/Vol] 1.9 10*3/uL Normal 1.0-3.5 [facility] Comment on above: Performed By: #### C BCA, CMP, , 2776-04, 1987-08 #### [facility] ([id number]) [address] [place] [address] Lymphocytes/100 WBC (Bld) 15.0 % Normal [facility] Comment on above: Performed By: #### Shahla BCA, CMP, , 2776-04, 1987-08 #### [facility] ([id number]) [address] [place] [address] MCH (RBC) [Entitic mass] 27.8 pg Normal 27-34 [facility] Comment on above: Performed By: #### C BCA, CMP, , 2776-04, 1987-08 #### [facility] ([id number]) [address] [place] [address] MCHC (RBC) [Mass/Vol] 33.2 g/dL Normal 32-36 [facility] Comment on above: Performed By: #### Shahla POOLE, CMP, , 2776-04, 1987-08 #### [facility] ([id number]) [address], [facility] [address] [place] [address] MCV (RBC) [Entitic vol] 84 fL Normal 80-100 P [facility] Comment on above: Performed By: #### Shahla BCA, CMP, , 2776-04, 1987-08 #### [facility] ([id number]) [address] [place] [address] Metamyelocytes/100 WBC (Bld) 1.0 % Normal [facility] Comment on above: Performed By: #### Shahla BCA, CMP, , 2776-04, 1987-08 #### [facility] ([id number]) [address] [place] [address] Monocytes (Bld) [#/Vol] 0.1 10*3/uL Normal 0-0.9 [facility] Comment on above: Performed By: #### C BCA, CMP, , 2776-04, 1987-08 #### [facility] ([id number]) [address] [place] [address] Monocytes/100 WBC (Bld) 1.0 % Normal P [facility] Comment on above: Performed By: #### Shahla BCA, CMP, , 2776-04, 1987-08 #### [facility] ([id number]) [address], [facility] [address] [place] [address] Neutrophils (Bld) [#/Vol] 10.4 10*3/uL High 1.5-6.6 [facility] Comment on above: Performed By: #### Shahla BCA, CMP, , 2776-04, 1987-08 #### [facility] ([id number]) [address] [place] [address] Platelet mean volume (Bld) [Entitic vol] 9.3 fL Normal 7-12 [facility] Comment on above: Performed By: #### Shahla BCA, CMP, , 2776-04, 1987-08 #### [facility] ([id number]) [address] [place] [address] Platelets (Bld) [#/Vol] 324 10*3/uL Normal 150-450 [facility] Comment on above: Performed By: #### Shahla BCA, CMP, , 2776-04, 1987-08 #### [facility] ([id number]) [address], [facility] [address] [place] [address] POLYCHROMASIA 1+ Abnormal NONE [facility] Comment on above: Performed By: #### Shahla BCA, CMP, , 2776-04, 1987-08 #### [facility] ([id number]) [address] [place] [address] RBC COUNT 4.09 X10E12/L Normal 3.80-5.20 [facility] Comment on above: Performed By: #### C BCA, CMP, , 2776-04, 1987-08 #### [facility] ([id number]) [address] [place] [address] SEG NEUTROPHIL 82.0 % Normal [facility] Comment on above: Performed By: #### C BCA, CMP, , 2776-04, 1987-08 #### [facility] ([id number]) [address] [place] [address] WBC (Bld) [#/Vol] 12.5 10*3/uL High 4.0-11.0 [facility] Comment on above: Performed By: #### C BCA, CMP, , 2776-04, 1987-08 #### [facility] ([id number]) [address] [place] [address] COMPREHENSIVE METABOLIC PANE Phu 10-19-2023 Albumin [Mass/Vol] 3.7 g/dL Normal 3.2-5.3 [facility] Comment on above: Performed By: #### C BCA, CMP, , 2776-04, 1987-08 #### [facility] ([id number]) [address] [place] [address] ALP [Catalytic activity/Vol] 58 U/L Normal 39-130 [facility] Comment on above: Performed By: #### C BCA, CMP, , 2776-04, 1987-08 #### [facility] ([id number]) [address], [address] [place] [address] ALT [Catalytic activity/Vol] 10 U/L Normal 0-31 [facility] Comment on above: Performed By: #### C BCA, CMP, , 2776-04, 1987-08 #### [facility] ([id number]) [address], [address] [place] [address] Anion gap [Moles/Vol] 13 mmol/L Normal 5-15 [facility] Comment on above: Performed By: #### C BCA, CMP, , 2776-04, 1987-08 #### [facility] ([id number]) [address], [address] [place] [address] AST [Catalytic activity/Vol] 17 U/L Normal 0-41 [facility] Comment on above: Performed By: #### C BCA, CMP, , 2776-04, 1987-08 #### [facility] ([id number]) [address] [place] [address] Bilirubin [Mass/Vol] 0.3 mg/dL Normal 0.3-1.2 [facility] Comment on above: Performed By: #### C BCA, CMP, , 2776-04, 1987-08 #### [facility] ([id number]) [address] [place] [address] Calcium [Mass/Vol] 9.9 mg/dL Normal 8.5-10.5 [facility] Comment on above: Performed By: #### C BCA, CMP, , 2776-04, 1987-08 #### [facility] ([id number]) [address] [place] [address] Chloride [Moles/Vol] 95 mmol/L Low 98-109 [facility] Comment on above: Performed By: #### C BCA, CMP, , 2776-04, 1987-08 #### [facility] ([id number]) [address] [place] [address] CO2 [Moles/Vol] 28 mmol/L Normal 22-32 [facility] Comment on above: Performed By: #### C VIRGILIO, CMP, , 2776-04, 1987-08 #### [facility] ([id number]) [address] [place] [address] Creatinine [Mass/Vol] 3.62 mg/dL High 0.40-1.00 [facility] Comment on above: Result Comment: METH OD TRACEABLE TO IDMS STANDARD Performed By: #### C VIGRILIO, CMP, , 2776-04, 1987-08 #### [facility] ([id number]) [address] [place] [address] GFR/1.73 sq M.predicted among non-blacks MDRD (S/P/Bld) [Vol rate/Area] 14 mL/min/{1.73_m2} Low >59 [facility] Comment on above: Result Comment: Reported eGFR is based on the CKD-EPI 2020 equation that does not use a race coefficient. Performed By: #### C EDEL POOLE, , 2776-04, 1987-08 #### [facility] ([id number]) [address] [place] [address] Glucose [Mass/Vol] 146 mg/dL High 65-99 [facility] Comment on above: Performed By: #### C VIRGILIO CMP, , 2776-04, 1987-08 #### [facility] ([id number]) [address] [place] [address] Potassium [Moles/Vol] 5.2 mmol/L High 3.5-5.0 [facility] Comment on above: Performed By: #### C VIRGILIO, CMP, , 2776-04, 1987-08 #### [facility] ([id number]) [address] [place] [address] Protein [Mass/Vol] 6.4 g/dL Normal 6.0-8.0 [facility] Comment on above: Performed By: #### C BCA, CMP, , 2776-04, 1987-08 #### [facility] ([id number]) [address] [place] [address] Sodium [Moles/Vol] 136 mmol/L Normal 134-146 [facility] Comment on above: Performed By: #### C BCA, CMP, , 2776-04, 1987-08 #### [facility] ([id number]) [address] [place] [address] Urea nitrogen [Mass/Vol] 53 mg/dL High 5-23 [facility] Comment on above: Performed By: #### C BCA, CMP, , 2776-04, 1987-08 #### [facility] ([id number]) [address] [place] [address] CRP [Mass/Vol]on 10-19-2023 C REACTIVE PROTEIN 0.9 mg/dL High 0.000-0.7 4 4 [facility] Comment on above: Performed By: #### C BCA, CMP, , 2776-04, 1987-08 #### [facility] ([id number]) [address] [place] [address] Calcium.ionized (Bld) [Mass/ Vol]on 10-19-2023 IONIZED CALCIUM 4.6 mg/dL Normal 4.5-5.3 [facility] Comment on above: Performed By: #### 3 8230-9 #### [facility] ([id number]) [address] [place] [address] IMMUNOGLOBULINSon 10-19-2023 IgA [Mass/Vol] 109 mg/dL Normal 68-378 [facility] Comment on above: Performed By: #### P INR, 01177-5, IMGB #### [facility] ([id number]) [address] [place] [address] IgG [Mass/Vol] 460 mg/dL Low 635-1741 [facility] Comment on above: Performed By: #### P INR, 34892-2, IMGB #### [facility] ([id number]) [address] [place] [address] IgM [Mass/Vol] 98 mg/dL Normal 45-281 [facility] Comment on above: Performed By: #### P INR, 71791-9, IMGB #### [facility] ([id number]) [address] [place] [address] MAGNESIUMon 10-19-2023 Magnesium [Mass/Vol] 2.0 mg/dL Normal 1.8-2.6 [facility] Comment on above: Performed By: #### C BCA, CMP, , 2776-04, 1987-08 #### [facility] ([id number]) [address] [place] [address] PHOSPHORUSon 10-19-2023 Phosphate [Mass/Vol] 4.8 mg/dL Normal 2.4-4.9 [facility] Comment on above: Performed By: #### C BCA, CMP, , 2776-04, 1987-08 #### [facility] ([id number]) [address] [place] [address] PLATELET FUNCTIONon 10-19-19 24 COLLAGEN/ADP 72 sec Normal 0-114 [facility] Comment on above: Performed By: #### P FA, PINR, 46267-7 #### [facility] ([id number]) [address] [place] [address] COLLAGEN/EPINEPHRINE 81 sec Normal 0-179 [facility] Comment on above: Performed By: #### P FA, PINR, 95769-8 #### [facility] ([id number]) [address] [place] [address] PFA INTERP Platelet function is normal. If patient Normal [facility] Comment on above: Result Comment: hist ory/physical examination gives strong indication of a bleeding disorder, consider testing for other etiologies. Performed By: #### P FA, PINR, 22315-1 #### [facility] ([id number]) [address] [place] [address] PROTIME AND INRon 10-19-2023 INR Coag (PPP) [Relative time] 0.9 {INR} Normal 0.8-1.1 [facility] Comment on above: Performed By: #### C VIRGILIO CMP, , 2776-04, 1987-08 #### [facility] ([id number]) [address] [address] [place] [address] PT Coag (PPP) [Time] 10.4 s Normal 9.8-13.2 [facility] Comment on above: Performed By: #### C BCA, CMP, , 2776-04, 1987-08 #### [facility] ([id number]) [address] [address] [place] [address] INR Coag (PPP) [Relative time] 0.9 {INR} Normal 0.8-1.1 [facility] Comment on above: Performed By: #### P INR, 95150-7, IMGB #### [facility] ([id number]) [address] [address] [place] [address] PT Coag (PPP) [Time] 10.4 s Normal 9.8-13.2 [facility] Comment on above: Performed By: #### P INR, 82179-5, IMGB #### [facility] ([id number]) [address] [place] [address] aPTT Coag (PPP) [Time]on aPTT Coag (Bld) [Time] 40 s High 26-37 [facility] Comment on above: Performed By: #### C BCA, CMP, , 2776-04, 1987-08 #### [facility] ([id number]) [address] [place] [address] aPTT Coag (Bld) [Time] 34 s Normal 26-37 [facility] Comment on above: Performed By: #### P INR, 79669-2, IMGB #### [facility] ([id number]) [address] [place] [address] Basement membrane IgG Qn (S) on 10-18-2023 Glomerular Base Memb IgG <0.2 Normal <1. 0 (Negative) [facility] Comment on above: Result Comment: NOTE Test Performed by: [place] [address] Immigration Officer: Ledy Son Ph.D.; CLIA# [id number] Performed By: #### 8 9579-7 #### [facility] ([id number]) [address] [place] [address] CBC AND AUTO DIFFon 10-18-19 24 ABSOLUTE BASOPHIL 0.1 X10E9/L Normal 0.0-0.2 [facility] Comment on above: Performed By: #### C VIRGILIO, CMP, , 2776-04 ####[facility] ([id number])[address] [place] [address] ABSOLUTE NEUTROPHIL 4.5 X10E9/L Normal 1.5-6.6 [facility] Comment on above: Performed By: #### C BCA, CMP, , 2776-04 ####[facility] ([id number])[address] [place] [address] Basophils/100 WBC (Bld) 1.0 % Normal [facility] Comment on above: Performed By: #### C EDEL POOLE, , 2776-04 ####[facility] ([id number])[address] [place] [address] Eosinophils (Bld) [#/Vol] 0.4 10*3/uL Normal 0.0-0.4 [facility] Comment on above: Performed By: #### Shahla POOLE CMP, , 2776-04 ####[facility] ([id number])[address] [place] [address] Eosinophils/100 WBC (Bld) 5.1 % Normal [facility] Comment on above: Performed By: #### Shahla POOLE CMP, , 2776-04 ####[facility] ([id number])[address] [place] [address] Erythrocyte distribution width (RBC) [Ratio] 15.0 % Normal 11.5-15.0 [facility] Comment on above: Performed By: #### Shahla POOLE CMP, , 2776-04 ####[facility] ([id number])[address] [place] [address] Hematocrit (Bld) [Volume fraction] 31.7 % Low 35-47 [facility] Comment on above: Performed By: #### Shahla POOLE CMP, , 2776-04 ####[facility] ([id number])[address] [place] [address] Hemoglobin (Bld) [Mass/Vol] 10.5 g/dL Low 11.7-15.5 [facility] Comment on above: Performed By: #### Shahla POOLE CMP, , 2776-04 ####[facility] ([id number])[address] [place] [address] Lymphocytes (Bld) [#/Vol] 2.1 10*3/uL Normal 1.0-3.5 [facility] Comment on above: Performed By: #### Shahla POOLE CMP, , 2776-04 ####[facility] ([id number])[address] [place] [address] Lymphocytes/100 WBC (Bld) 27.3 % Normal [facility] Comment on above: Performed By: #### Shahla POOLE CMP, , 2776-04 ####[facility] ([id number])[address] [place] [address] 67246 MCH (RBC) [Entitic mass] 27.7 pg Normal 27-34 [facility] Comment on above: Performed By: #### Shahla POOLE CMP, , 2776-04 ####[facility] ([id number])[address] [place] [address] 70602 MCHC (RBC) [Mass/Vol] 33.1 g/dL Normal 32-36 [facility] Comment on above: Performed By: #### Shahla POOLE CMP, , 2776-04 ####[facility] ([id number])[address] [place] [address] 68896 MCV (RBC) [Entitic vol] 84 fL Normal 80-100 [facility] Comment on above: Performed By: #### Shahla POOLE CMP, , 2776-04 ####[facility] ([id number])[address] [place] [address] 81319 Monocytes (Bld) [#/Vol] 0.7 10*3/uL Normal 0-0.9 [facility] Comment on above: Performed By: #### Shahla POOLE CMP, , 2776-04 ####[facility] ([id number])[address] [place] [address] 67354 Monocytes/100 WBC (Bld) 9.1 % Normal [facility] Comment on above: Performed By: #### Shahla POOLE CMP, , 2776-04 ####[facility] ([id number])[address] [place] [address] 69083 Neutrophils/100 WBC (Bld) 57.5 % Normal [facility] Comment on above: Performed By: #### Shahla POOLE CMP, , 2776-04 ####[facility] ([id number])[address] [place] [address] 20469 Platelet mean volume (Bld) [Entitic vol] 8.9 fL Normal 7-12 [facility] Comment on above: Performed By: #### Shahla POOLE CMP, , 2776-04 ####[facility] ([id number])[address] [place] [address] 87978 Platelets (Bld) [#/Vol] 328 10*3/uL Normal 150-450 [facility] Comment on above: Performed By: #### Shahla POOLE CMP, , 2776-04 ####[facility] ([id number])[address] [place] [address] 19494 RBC COUNT 3.77 X10E12/L Low 3.80-5.20 [facility] Comment on above: Performed By: #### Shahla POOLE CMP, , 2776-04 ####[facility] ([id number])[address] [place] [address] 10683 WBC (Bld) [#/Vol] 7.8 10*3/uL Normal 4.0-11.0 [facility] Comment on above: Performed By: #### Shahla POOLE CMP, , 2776-04 ####[facility] ([id number])[address] [place] [address] 07815 CBC auto differentialon 06-2 6-2024 Basophils (Bld) [#/Vol] 0.1 10*3/uL [facility] Basophils/100 WBC (Bld) 1.0 % P [facility] Eosinophils (Bld) [#/Vol] 0.4 10*3/uL [facility] Eosinophils/100 WBC (Bld) 5.1 % [facility] Erythrocyte distribution width (RBC) [Ratio] 15.0 % 11.5 - 15.0 % [facility] Hematocrit (Bld) [Volume fraction] 31.7 % Low 35 - 47 % [facility] Hemoglobin (Bld) [Mass/Vol] 10.5 g/dL Low 11.7 - 15.5 g/dL [facility] Interpretation and review of laboratory results Abnormal [facility] Lymphocytes (Bld) [#/Vol] 2.1 10*3/uL [facility] Lymphocytes/100 WBC (Bld) 27.3 % [facility] MCH (RBC) [Entitic mass] 27.7 pg 27 - 34 pg [facility] MCHC (RBC) [Mass/Vol] 33.1 g/dL 32 - 3 6 g/dL [facility] MCV (RBC) [Entitic vol] 84 fL 80 - 100 fL [facility] Monocytes (Bld) [#/Vol] 0.7 10*3/uL [facility] Monocytes/100 WBC (Bld) 9.1 % P [facility] Neutrophils (Bld) [#/Vol] 4.5 10*3/uL [facility] Neutrophils/100 WBC (Bld) 57.5 % [facility] Platelet mean volume (Bld) [Entitic vol] 8.9 fL 7 - 12 fL [facility] Platelets (Bld) [#/Vol] 328 10*3/uL [facility] RBC (Bld) [#/Vol] 3.77 10*6/uL Low [facility] WBC corrected for nucl RBC Auto (Bld) [#/Vol] 7.8 [facility] COMPREHENSIVE METABOLIC PANE Phu 10-18-2023 Albumin [Mass/Vol] 3.1 g/dL Low 3.2-5.3 [facility] Comment on above: Performed By: #### C BCA, CMP, , 2776-04 ####[facility] ([id number])[address] [place] [address]341 ALP [Catalytic activity/Vol] 57 U/L Normal 39-130 [facility] Comment on above: Performed By: #### C BCA, CMP, , 2776-04 ####[facility] ([id number])[address] [place] [address] 44772 ALT [Catalytic activity/Vol] 10 U/L Normal 0-31 [facility] Comment on above: Performed By: #### C BCA, CMP, , 2776-04 ####[facility] ([id number])[address] [place] [address] 62596 Anion gap [Moles/Vol] 11 mmol/L Normal 5-15 [facility] Comment on above: Performed By: #### C BCA, CMP, , 2776-04 ####[facility] ([id number])[address] [place] [address] [place] [address] AST [Catalytic activity/Vol] 14 U/L Normal 0-41 [facility] Comment on above: Performed By: #### C BCA, CMP, , 2776-04 ####[facility] ([id number])[address] [place] [address] [place] [address] Bilirubin [Mass/Vol] 0.7 mg/dL Normal 0.3-1.2 [facility] Comment on above: Performed By: #### C BCA, CMP, , 2776-04 ####[facility] ([id number])[address] [place] [address] [place] [address] Calcium [Mass/Vol] 9.3 mg/dL Normal 8.5-10.5 [facility] Comment on above: Performed By: #### C EDEL POOLE, , 2776-04 ####[facility] ([id number])[address] [place] [address] 84437 Chloride [Moles/Vol] 97 mmol/L Low 98-109 [facility] Comment on above: Performed By: #### C EDEL POOLE, , 2776-04 ####[facility] ([id number])[address] [place] [address] 88193 CO2 [Moles/Vol] 29 mmol/L Normal 22-32 [facility] Comment on above: Performed By: #### C EDEL POOLE, , 2776-04 ####[facility] ([id number])[address] [place] [address] 18778 Creatinine [Mass/Vol] 2.98 mg/dL High 0.40-1.00 [facility] Comment on above: Result Comment: METH OD TRACEABLE TO IDMS STANDARD Performed By: #### C EDEL POOLE, , 2776-04 ####[facility] ([id number])[address] [place] [address] 66669 GFR/1.73 sq M.predicted among non-blacks MDRD (S/P/Bld) [Vol rate/Area] 18 mL/min/{1.73_m2} Low >59 [facility] Comment on above: Result Comment: Reported eGFR is based on the CKD-EPI 1 equation that does not use a race coefficient. Performed By: #### C EDEL POOLE, , 2776-04 ####[facility] ([id number])[address] [place] [address]107 Glucose [Mass/Vol] 92 mg/dL Normal 65-99 [facility] Comment on above: Performed By: #### C EDEL POOLE, , 2776-04 ####[facility] ([id number])[address] [place] [address]5974 Potassium [Moles/Vol] 4.2 mmol/L Normal 3.5-5.0 [facility] Comment on above: Performed By: #### C BCA, CMP, 31364-8, 2777-1 ####[facility] ([id number])[address] [place] [address] 39654 Protein [Mass/Vol] 6.0 g/dL Normal 6.0-8.0 [facility] Comment on above: Performed By: #### C VIRGILIO, CMP, , 7-1 ####[facility] ([id number])[address] [place] [address] 86956 Sodium [Moles/Vol] 137 mmol/L Normal 134-146 [facility] Comment on above: Performed By: #### C VIRGILIO, CMP, , 27771 ####[facility] ([id number])[address] [place] [address] 10250 Urea nitrogen [Mass/Vol] 37 mg/dL High 5-23 [facility] Comment on above: Performed By: #### C BCA, CMP, , 2777-1 ####[facility] ([id number])[address] [place] [address]0714 Calcium.ionized (Bld) [Moles /Vol]on 10-18-2023 [facility] PORTABLE ICA 4.7 mg/dL Normal 4.5-5.3 [facility] Comment on above: Performed By: #### 8 9579-7 #### [facility] ([id number]) [address] [place] [address] Clinical Pathology Reviewon 10-18-2023 [facility] [address] [place] [address] Clinical Pathology Report Patient Name:DANIELLE MONTANA:1965 (Age: 58)Gender:FTaken:09/23eported:hysician(s):Soniya Flores MD ([phone])Copy To: Rec. 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 No monoclonal protein identified. Report Electronically Signed Out df/10/18/2023nicci Gomez MD [facility] [place] [address], License number: [id number]. Clinical History D17.9, I16.0, E87.6. URINE PROTEIN ELECTROPHORESIS SAMPLE NUMBER: [id number] RELATIVE ELECTROPHORETIC CONCENTRATIONS (%) ? 100.0 Urine Protein 1410 mg/L (Electrophoretic gels and densitometric tracings on file in lab.) Specimen(s) Received Urine Protein Electrophoresis Fee Codes(s): 1; 17555-66 COPATH [facility] Comprehensive metabolic pane phu 10-18-2023 Albumin [Mass/Vol] 3.1 g/dL Low 3.2 - 5.3 g/dL [facility] ALP [Catalytic activity/Vol] 57 U/L 39 - 130 U/L [facility] ALT No additional P-5'-P [Catalytic activity/Vol] 10 U/L 0 - 31 U/L [facility] Anion gap [Moles/Vol] 11 mmol/L 5 - 15 mmol/L [facility] AST [Catalytic activity/Vol] 14 U/L 0 - 41 U/L [facility] Bilirubin [Mass/Vol] 0.7 mg/dL 0.3 - 1 .2 mg/dL [facility] Calcium [Mass/Vol] 9.3 mg/dL 8.5 - 10. 5 mg/dL [facility] Chloride [Moles/Vol] 97 mmol/L Low 98 - 10 9 mmol/L [facility] CO2 [Moles/Vol] 29 mmol/L 22 - 32 mmol/L [facility] Creatinine [Mass/Vol] 2.98 mg/dL High 0.40 - 1.00 mg/dL [facility] Comment on above: METHOD TRACEABLE TO [facility] STAND[facility] eGFR (CKD-EPI)non-race dependent 18 Low - PINF [facility] Comment on above: Reported eGFR is based on the CKD-EPI 2020 equation that does not use a race coefficient. Glucose [Mass/Vol] 92 mg/dL 65 - 99 mg/dL [facility] Interpretation and review of laboratory results Abnormal [facility] Potassium [Moles/Vol] 4.2 mmol/L 3.5 - 5.0 mmol/L [facility] Protein [Mass/Vol] 6.0 g/dL 6.0 - 8.0 g/dL [facility] Sodium [Moles/Vol] 137 mmol/L 134 - 146 mmol/L [facility] Urea nitrogen [Mass/Vol] 37 mg/dL High 5 - 23 mg/dL [facility] MAGNESIUMon 10-18-2023 Magnesium [Mass/Vol] 2.0 mg/dL Normal 1.8-2.6 [facility] Comment on above: Performed By: #### C BCA, CMP, 22984-5, 2777-1 ####[facility] ([id number])[address] [place] [address] Magnesiumon 10-18-2023 Magnesium [Mass/Vol] 2.0 mg/dL 1.8 - 2 .6 mg/dL [facility] Myeloperoxidase IgG Qn (S)on 10-18-2023 Myeloperoxidase IgG >8.0 High <0.4 (Negative) [facility] Comment on above: Result Comment: NOTE Interpretation: Positive (>=1.0) Test Performed by: [address] [address] Immigration Officer: Ledy Son Ph.D.; CLIA# [id number] Performed By: #### 8 9579-7 #### [facility] ([id number]) [address] [place] [address] No Panel Informationon 10-17 [facility] PHOSPHORUSon 10-18-2023 Phosphate [Mass/Vol] 5.1 mg/dL High 2.4-4.9 [facility] Comment on above: Performed By: #### C VIRGILIO, CMP, 33109-6, 2777-1 ####[facility] ([id number])[address] [place] [address] 98881 POCT Ionized Calciumon 10-17 Calcium.ionized (Bld) [Moles/Vol] 4.7 mg/dL 4.5 - 5.3 mg/dL [facility] Phosphate [Mass/Vol]on 10-17 Interpretation and review of laboratory results Abnormal [facility] Phosphoruson 10-18-2023 Phosphate [Mass/Vol] 5.1 mg/dL High 2.4 - 4 .9 mg/dL [facility] CBC AND AUTO DIFFon 10-17-19 ABSOLUTE BASOPHIL 0.1 X10E9/L Normal 0.0-0.2 [facility] Comment on above: Performed By: #### C VIRGILIO, BMP, , 38488-8, 98444-0 #### [facility] ([id number]) [address] [place] [address] 22585 ABSOLUTE NEUTROPHIL 4.9 X10E9/L Normal 1.5-6.6 [facility] Comment on above: Performed By: #### C VIRGILIO, BMP, , 32048-5, 21051-2 #### [facility] ([id number]) [address] [place] [address] 74460 Basophils/100 WBC (Bld) 0.7 % Normal [facility] Comment on above: Performed By: #### C BCA, BMP, 96058-3, 38662-9, 28770-3 #### [facility] ([id number]) [address] [place] [address] 37066 Eosinophils (Bld) [#/Vol] 0.3 10*3/uL Normal 0.0-0.4 [facility] Comment on above: Performed By: #### C VIRGILIO, BMP, , 90864-2, 65911-9 #### [facility] ([id number]) [address] [place] [address] 50673 Eosinophils/100 WBC (Bld) 4.3 % Normal [facility] Comment on above: Performed By: #### C VIRGILIO, BMP, , 05227-3, 93084-2 #### [facility] ([id number]) [address] [place] [address] 46248 Erythrocyte distribution width (RBC) [Ratio] 14.7 % Normal 11.5-15.0 [facility] Comment on above: Performed By: #### Shahla POOLE, MARIO, , 87628-3, 47349-3 #### [facility] ([id number]) [address] [place] [address] 24259 Hematocrit (Bld) [Volume fraction] 30.3 % Low 35-47 [facility] Comment on above: Performed By: #### C VIRGILIO, BMP, , 73126-8, 50041-2 #### [facility] ([id number]) [address] [place] [address] 24063 Hemoglobin (Bld) [Mass/Vol] 10.1 g/dL Low 11.7-15.5 [facility] Comment on above: Performed By: #### C VIRGILIO, BMP, , 08153-9, 35292-1 #### [facility] ([id number]) [address] [place] [address] 95917 Lymphocytes (Bld) [#/Vol] 1.9 10*3/uL Normal 1.0-3.5 [facility] Comment on above: Performed By: #### C BCA, BMP, , 07396-6, 04425-1 #### [facility] ([id number]) [address] [place] [address] 42500 Lymphocytes/100 WBC (Bld) 24.6 % Normal [facility] Comment on above: Performed By: #### C BCA, BMP, , 92588-8, 51579-1 #### [facility] ([id number]) [address] [place] [address] 23808 MCH (RBC) [Entitic mass] 27.9 pg Normal 27-34 [facility] Comment on above: Performed By: #### C VIRGILIO, BMP, , 15224-6, 12380-0 #### [facility] ([id number]) [address] [place] [address] 11907 MCHC (RBC) [Mass/Vol] 33.4 g/dL Normal 32-36 [facility] Comment on above: Performed By: #### C BCA, BMP, , 68352-1, 29333-9 #### [facility] ([id number]) [address] [place] [address] 27537 MCV (RBC) [Entitic vol] 84 fL Normal 80-100 [facility] Comment on above: Performed By: #### Shahla BCA, BMP, , 50776-6, 37277-3 #### [facility] ([id number]) [address] [place] [address] 44842 Monocytes (Bld) [#/Vol] 0.6 10*3/uL Normal 0-0.9 [facility] Comment on above: Performed By: #### Shahla BCA, BMP, , 18543-4, 60098-8 #### [facility] ([id number]) [address] [place] [address] 66150 Monocytes/100 WBC (Bld) 8.3 % Normal [facility] Comment on above: Performed By: #### C BCA, BMP, 44145-0, 78678-5, 85851-4 #### [facility] ([id number]) [address] [place] [address] 25586 Neutrophils/100 WBC (Bld) 62.1 % Normal [facility] Comment on above: Performed By: #### C BCA, BMP, 08809-7, 67001-7, 42954-5 #### [facility] ([id number]) [address] [place] [address] 71620 Platelet mean volume (Bld) [Entitic vol] 9.0 fL Normal 7-12 [facility] Comment on above: Performed By: #### Shahla BCA, BMP, 36289-1, 29818-6, 48772-3 #### [facility] ([id number]) [address] [place] [address] 63226 Platelets (Bld) [#/Vol] 278 10*3/uL Normal 150-450 [facility] Comment on above: Performed By: #### C BCA, BMP, 03343-3, 75364-4, 85903-5 #### [facility] ([id number]) [address] [place] [address] 60194 RBC COUNT 3.62 X10E12/L Low 3.80-5.20 [facility] Comment on above: Performed By: #### C BCA, BMP, 91479-3, 66443-1, 53907-4 #### [facility] ([id number]) [address] [place] [address] 84862 WBC (Bld) [#/Vol] 7.9 10*3/uL Normal 4.0-11.0 [facility] Comment on above: Performed By: #### C BCA, BMP, 84083-3, 25002-0, 36794-1 #### [facility] ([id number]) [address] [facility], [place] [address] CBC auto differentialon 09-23 Basophils (Bld) [#/Vol] [...] 10-17-2023 Albumin [Mass/Vol] 3.0 g/dL Low 3.2-5.3 [facility] Comment on above: Performed By: #### C BCA, BMP, 70432-9, 76921-6, 41270-9 #### [facility] ([id number]) [address] [place] [address] 47284 ALP [Catalytic activity/Vol] 56 U/L Normal 39-130 [facility] Comment on above: Performed By: #### C BCA, BMP, 72485-0, 74288-9, 10067-6 #### [facility] ([id number]) [address] [place] [address] 75243 ALT [Catalytic activity/Vol] 10 U/L Normal 0-31 [facility] Comment on above: Performed By: #### C BCA, BMP, 08337-3, 51378-3, 07041-0 #### [facility] ([id number]) [address] [place] [address] 02458 Anion gap [Moles/Vol] 10 mmol/L Normal 5-15 [facility] Comment on above: Performed By: #### C BCA, BMP, 97454-5, 63270-7, 46539-6 #### [facility] ([id number]) [address] [place] [address] 63699 AST [Catalytic activity/Vol] 14 U/L Normal 0-41 [facility] Comment on above: Performed By: #### C BCA, BMP, 87947-3, 43457-3, 15911-9 #### [facility] ([id number]) [address] [place] [address] 49963 Bilirubin [Mass/Vol] 0.7 mg/dL Normal 0.3-1.2 [facility] Comment on above: Performed By: #### C BCA, BMP, 77641-6, 68417-5, 49516-7 #### [facility] ([id number]) [address] [place] [address] 76254 Calcium [Mass/Vol] 8.8 mg/dL Normal 8.5-10.5 [facility] Comment on above: Performed By: #### C BCA, BMP, 23992-9, 03494-4, 36100-7 #### [facility] ([id number]) [address] [place] [address] 15491 Chloride [Moles/Vol] 101 mmol/L Normal 98-109 [facility] Comment on above: Performed By: #### C BCA, BMP, 13031-0, 33534-2, 99210-3 #### [facility] ([id number]) [address] [place] [address] 62046 CO2 [Moles/Vol] 28 mmol/L Normal 22-32 [facility] Comment on above: Performed By: #### C BCA, BMP, 62427-0, 81963-5, 88359-4 #### [facility] ([id number]) [address] [place] [address] 74153 Creatinine [Mass/Vol] 2.77 mg/dL High 0.40-1.00 [facility] Comment on above: Result Comment: METH OD TRACEABLE TO IDMS STANDARD Performed By: #### C BCA, BMP, 00354-4, 09043-3, 61348-4 #### [facility] ([id number]) [address] [place] [address] 47961 GFR/1.73 sq M.predicted among non-blacks MDRD (S/P/Bld) [Vol rate/Area] 19 mL/min/{1.73_m2} Low >59 [facility] Comment on above: Result Comment: Reported eGFR is based on the CKD-EPI 2020 equation that does not use a race coefficient. Performed By: #### C BCA, BMP, 95344-8, 91895-6, 32347-1 #### [facility] ([id number]) [address] [place] [address] 72850 Glucose [Mass/Vol] 97 mg/dL Normal 65-99 [facility] Comment on above: Performed By: #### C BCA, BMP, , 19190-5, 52433-4 #### [facility] ([id number]) [address] [place] [address] 06443 Potassium [Moles/Vol] 3.6 mmol/L Normal 3.5-5.0 [facility] Comment on above: Performed By: #### C BCA, BMP, , 03068-8, 55023-4 #### [facility] ([id number]) [address] [place] [address] 30808 Protein [Mass/Vol] 5.7 g/dL Low 6.0-8.0 [facility] Comment on above: Performed By: #### C BCA, BMP, , 00393-4, 72097-0 #### [facility] ([id number]) [address] [place] [address] 24104 Sodium [Moles/Vol] 139 mmol/L Normal 134-146 [facility] Comment on above: Performed By: #### C BCA, BMP, , 89387-6, 75229-5 #### [facility] ([id number]) [address] [place] [address] [place] [address] Urea nitrogen [Mass/Vol] 26 mg/dL High 5-23 [facility] Comment on above: Performed By: #### C BCA, BMP, , 46133-3, 49860-8 #### [facility] ([id number]) [address] [place] [address] 85847 Calcium.ionized (Bld) [Moles /Vol]on 10-17-2023 [facility] PORTABLE ICA 4.7 mg/dL Normal 4.5-5.3 [facility] Comment on above: Performed By: #### C BCA, BMP, 08846-3, 90712-8, 74469-6 #### [facility] ([id number]) [address] [facility], [place] [address] Comprehensive metabolic pane phu 10-17-2023 Albumin [Mass/Vol] 3.0 g/dL Low 3.2 - 5.3 g/dL [facility] ALP [Catalytic activity/Vol] 56 U/L 39 - 130 U/L [facility] ALT No additional P-5'-P [Catalytic activity/Vol] 10 U/L 0 - 31 U/L [facility] Anion gap [Moles/Vol] 10 mmol/L 5 - 15 mmol/L [facility] AST [Catalytic activity/Vol] 14 U/L 0 - 41 U/L [facility] Bilirubin [Mass/Vol] 0.7 mg/dL 0.3 - 1 .2 mg/dL [facility] Calcium [Mass/Vol] 8.8 mg/dL 8.5 - 10. 5 mg/dL [facility] Chloride [Moles/Vol] 101 mmol/L 98 - 10 9 mmol/L [facility] CO2 [Moles/Vol] 28 mmol/L 22 - 32 mmol/L [facility] Creatinine [Mass/Vol] 2.77 mg/dL High 0.40 - 1.00 mg/dL [facility] Comment on above: METHOD TRACEABLE TO [employer]CO STANDARD eGFR (CKD-EPI)non-race dependent 19 Low - PINF [facility] Comment on above: Reported eGFR is based on the CKD-EPI 2020 equation that does not use a race coefficient. Glucose [Mass/Vol] 97 mg/dL 65 - 99 mg/dL [facility] Interpretation and review of laboratory results Abnormal [facility] Potassium [Moles/Vol] 3.6 mmol/L 3.5 - 5.0 mmol/L [facility] Protein [Mass/Vol] 5.7 g/dL Low 6.0 - 8.0 g/dL [facility] Sodium [Moles/Vol] 139 mmol/L 134 - 146 mmol/L [facility] Urea nitrogen [Mass/Vol] 26 mg/dL High 5 - 23 mg/dL [facility] Creatinine, urine, 24 houron 10-17-2023 Creatinine (24H U) [Mass/Time] 1.38 [facility] FECAL OCCULT BLOODon 024 Hemoglobin.gastrointesti nal Ql (Stl) Negative Normal NEG [facility] Comment on above: Performed By: #### 2 335-8 ####[facility] ([id number])[address] [place] [address] Glomerular Basement Membrane IgG, Serumon 10-17-2023 Basement membrane IgG Qn (S) U <1.0 (Negative) U [facility] Comment on above: NOTE Test Performed by: [place] [address] Immigration Officer: Ledy Sno Ph.D.; CLIA# [id number] Hemoglobin.gastrointestinal Ql (Stl)on 10-17-2023 [facility] MAGNESIUMon 10-17-2023 Magnesium [Mass/Vol] 2.0 mg/dL Normal 1.8-2.6 [facility] Comment on above: Performed By: #### C BCA, [facility], 57013-1, 95838-7, 43705-7 #### [facility] ([id number]) [address] [place] [address] 69656 Magnesiumon 10-17-2023 Magnesium [Mass/Vol] 2.0 mg/dL 1.8 - 2 .6 mg/dL [facility] Myeloperoxidase Antibodies, IgG, Serumon 10-17-2023 Myeloperoxidase IgG Qn (S) U High <0.4 (Negative) U [facility] Comment on above: NOTE Interpretation: Positive (>=1.0) Test Performed by: [place] [address] Immigration Officer: Ledy Son Ph.D.; CLIA# [id number] Myeloperoxidase IgG Qn (S)on 10-17-2023 Interpretation and review of laboratory results Abnormal [facility] NM Lung Ventilationon 2023 Clinical history:Elevated [...] Tony Lowery MD on 10/17/2023 9:13 AM [facility] Tony Lowery MD - 10/17/2023 Clinical history:Elevated [...] low probability for pulmonary embolus. Finalized by Toyn Lowery MD on 10/17/2023 9:13 AM [facility] Radiology Study observation (narrative) [facility] NM Lung VentilationOrdered B y: Tony Lowery on 10-17-2023 [facility] Work Phone: NM VENTILATION PERFUSION CHAZ G [...] Lowery MD on 10/17/2023 9:13 AM Normal [facility] No Panel Informationon 10-16 [facility] Occult blood x 1, stoolon Hemoglobin.gastrointesti nal Ql (Stl) Negative Negative^N egative [facility] PHOSPHORUSon 10-17-2023 Phosphate [Mass/Vol] 4.1 mg/dL Normal 2.4-4.9 [facility] Comment on above: Performed By: #### C BCA, BMP, 62196-5, 81940-6, 56634-7 #### [facility] ([id number]) [address] [place] [address] 68580 POCT Ionized Calciumon 10-16 Calcium.ionized (Bld) [Moles/Vol] 4.7 mg/dL 4.5 - 5.3 mg/dL [facility] POTASSIUMon 10-17-2023 Potassium [Moles/Vol] 4.2 mmol/L Normal 3.5-5.0 [facility] Comment on above: Performed By: #### 2 823-3 ####[facility] ([id number])[address] [place] [address] 74176 Phosphate [Mass/Vol]on 10-16 [facility] Phosphoruson 10-17-2023 Phosphate [Mass/Vol] 4.1 mg/dL 2.4 - 4 .9 mg/dL [facility] Potassiumon 10-17-2023 Potassium [Moles/Vol] 4.2 mmol/L 3.5 - 5.0 mmol/L [facility] Potassium [Moles/Vol]on 09-23 [facility] Protein, urine, 24 houron Interpretation and review of laboratory results Abnormal [facility] Protein (24H U) [Mass/Time] 6380 High [facility] Proteinase 3 IgGon Proteinase 3 IgG IA Qn 0.2 U <0.4 (Negative) [facility] Comment on above: NOTE Test Performed by: [address], [place] [address] Immigration Officer: Ledy Son Ph.D.; CLIA# [id number] THYROID PROFILEon 10-17-2023 Free T4 [Mass/Vol] 1.19 ng/dL Normal 0.61-1.60 [facility] Comment on above: Performed By: #### C VIRGILIO, [facility], 61497-6, 90658-1, 67843-2 #### [facility] ([id number]) [address] [place] [address] 15177 TSH 2.17 uIU/mL Normal 0.49-4.67 [facility] Comment on above: Performed By: #### C VIRGILIO, MARIO, 90878-8, 21034-1, 11656-5 #### [facility] ([id number]) [address] [place] [address] 04922 Thyroid profile includes TSH FT4on 10-17-2023 Free T4 [Mass/Vol] 1.19 ng/dL 0.61 - 1.60 ng/dL [facility] TSH Qn 2.17 m[IU]/L [facility] US.doppler Lower extremity v ein [...] superficial vein thrombosis of the lower extremities. [facility] US.doppler Lower extremity v ein - bilateralOrdered By: Jong Haddad on 10-17-2023 [facility] Work Phone: Urine Volume and Timeon 09-23 Specimen volume Unsp time (U) 4400 mL [facility] Urine output 24 hour 24 h [facility] 24 HR URINE CREATININEon URINE CREATININE 1.38 g/24h Normal 0.80-1.80 [facility] Comment on above: Performed By: #### U CR, UPRO ####[facility] ([id number])[address] [facility], [address] [place] [address] 32680 24 HR URINE TOTAL PROTEINon 10-16-2023 URINE TOTAL PROTEIN 6380 mg/24h High 0-150 [facility] Comment on above: Performed By: #### U CR, UPRO ####[facility] ([id number])[address] [facility], [address] [place] [address] 54758 SAUL Screen w/ Reflexon 10-15 Nuclear Ab IA Ql (S) Negative Negativ e^N egative [facility] Comment on above: Testing performed using multiplex flow immunoassay. Eleven different antigens associated with systemic autoimmune diseases (dsDNA,Sm,Sm/SLOT KEY PERSON,SLOT KEY PERSON,Chromatin, SSA,SSB,Yoly-1,Scl70,Ribo P,Centromere B) are included in this screening test. CBC AND AUTO DIFFon 10-16-19 24 ABSOLUTE BASOPHIL 0.0 X10E9/L Normal 0.0-0.2 [facility] Comment on above: Performed By: #### C BCA, BMP, 50215-2, 02970-2, 60522-0 #### [facility] ([id number]) [address] [place] [address], [place] [address] ABSOLUTE NEUTROPHIL 4.9 X10E9/L Normal 1.5-6.6 [facility] Comment on above: Performed By: #### C BCA, BMP, 25204-5, 50130-8, 19539-9 #### [facility] ([id number]) [address] [place] [address] 85754 Basophils/100 WBC (Bld) 0.6 % Normal [facility] Comment on above: Performed By: #### C BCA, BMP, , 88543-2, 04589-0 #### [facility] ([id number]) [address] [place] [address] 46418 Eosinophils (Bld) [#/Vol] 0.3 10*3/uL Normal 0.0-0.4 [facility] Comment on above: Performed By: #### C BCA, BMP, , 03944-5, 13597-9 #### [facility] ([id number]) [address] [place] [address] 03357 Eosinophils/100 WBC (Bld) 4.2 % Normal [facility] Comment on above: Performed By: #### C BCA, BMP, , 49284-1, 49756-2 #### [facility] ([id number]) [address] [place] [address] 61551 Erythrocyte distribution width (RBC) [Ratio] 14.8 % Normal 11.5-15.0 [facility] Comment on above: Performed By: #### C BCA, BMP, , 71345-7, 45850-6 #### [facility] ([id number]) [address] [place] [address] 50248 Hematocrit (Bld) [Volume fraction] 28.5 % Low 35-47 [facility] Comment on above: Performed By: #### C BCA, BMP, 37274-5, 52401-6, 76600-1 #### [facility] ([id number]) [address] [place] [address] 40504 Hemoglobin (Bld) [Mass/Vol] 9.5 g/dL Low 11.7-15.5 [facility] Comment on above: Performed By: #### C VIRGILIO, MARIO, , 47805-6, 11533-7 #### [facility] ([id number]) [address] [place] [address] 77071 Lymphocytes (Bld) [#/Vol] 2.1 10*3/uL Normal 1.0-3.5 [facility] Comment on above: Performed By: #### C VIRGILIO, MARIO, , 77386-6, 48002-5 #### [facility] ([id number]) [address] [place] [address] 33727 Lymphocytes/100 WBC (Bld) 26.6 % Normal [facility] Comment on above: Performed By: #### C VIRGILIO, MARIO, , 48649-8, 84102-4 #### [facility] ([id number]) [address] [place] [address] 33067 MCH (RBC) [Entitic mass] 27.7 pg Normal 27-34 [facility] Comment on above: Performed By: #### Shahla POOLE, MARIO, , 46220-3, 45736-6 #### [facility] ([id number]) [address] [place] [address] 83328 MCHC (RBC) [Mass/Vol] 33.6 g/dL Normal 32-36 [facility] Comment on above: Performed By: #### C VIRGILIO, BMP, , 76158-9, 99816-4 #### [facility] ([id number]) [address] [place] [address] 03407 MCV (RBC) [Entitic vol] 83 fL Normal 80-100 [facility] Comment on above: Performed By: #### C BCA, BMP, 99998-1, 11902-6, 87045-0 #### [facility] ([id number]) [address] [place] [address] 80764 Monocytes (Bld) [#/Vol] 0.7 10*3/uL Normal 0-0.9 [facility] Comment on above: Performed By: #### C BCA, BMP, 16176-9, 79000-5, 05939-2 #### [facility] ([id number]) [address] [place] [address] 91311 Monocytes/100 WBC (Bld) 8.2 % Normal [facility] Comment on above: Performed By: #### C BCA, BMP, 01008-5, 86723-3, 70645-1 #### [facility] ([id number]) [address] [place] [address] 93429 Neutrophils/100 WBC (Bld) 60.4 % Normal [facility] Comment on above: Performed By: #### C BCA, BMP, 27563-4, 33257-2, 41007-8 #### [facility] ([id number]) [address] [place] [address] 57731 Platelet mean volume (Bld) [Entitic vol] 8.9 fL Normal 7-12 [facility] Comment on above: Performed By: #### C BCA, BMP, 96939-7, 53275-4, 16186-3 #### [facility] ([id number]) [address] [place] [address] 82784 Platelets (Bld) [#/Vol] 252 10*3/uL Normal 150-450 [facility] Comment on above: Performed By: #### C BCA, BMP, 41827-4, 36632-0, 41918-5 #### [facility] ([id number]) [address] [place] [address] RBC COUNT 3.45 X10E12/L Low 3.80-5.20 [facility] Comment on above: Performed By: #### C MARIO POOLE, 48411-9, 39071-7, 72515-6 #### [facility] ([id number]) [address] [place] [address] 78694 WBC (Bld) [#/Vol] 8.0 10*3/uL Normal 4.0-11.0 [facility] Comment on above: Performed By: #### C MARIO POOLE, 04900-9, 97262-1, 93759-2 #### [facility] ([id number]) [address] [place] [address] 32161 CBC auto differentialon 09-23 Basophils (Bld) [#/Vol] 0.0 10*3/uL [facility] Basophils/100 WBC (Bld) 0.6 % [facility] Eosinophils (Bld) [#/Vol] 0.3 10*3/uL [facility] Eosinophils/100 WBC (Bld) 4.2 % [facility] Erythrocyte distribution width (RBC) [Ratio] 14.8 % 11.5 - 15.0 % [facility] Hematocrit (Bld) [Volume fraction] 28.5 % Low 35 - 47 % [facility] Hemoglobin (Bld) [Mass/Vol] 9.5 g/dL Low 11.7 - 15.5 g/dL [facility] Interpretation and review of laboratory results Abnormal [facility] Lymphocytes (Bld) [#/Vol] 2.1 10*3/uL [facility] Lymphocytes/100 WBC (Bld) 26.6 % [facility] MCH (RBC) [Entitic mass] 27.7 pg 27 - 34 pg [facility] MCHC (RBC) [Mass/Vol] 33.6 g/dL 32 - 3 6 g/dL [facility] MCV (RBC) [Entitic vol] 83 fL 80 - 100 fL [facility] Monocytes (Bld) [#/Vol] 0.7 10*3/uL [facility] Monocytes/100 WBC (Bld) 8.2 % [facility] Neutrophils (Bld) [#/Vol] 4.9 10*3/uL [facility] Neutrophils/100 WBC (Bld) 60.4 % [facility] Platelet mean volume (Bld) [Entitic vol] 8.9 fL 7 - 12 fL [facility] Platelets (Bld) [#/Vol] 252 10*3/uL [facility] RBC (Bld) [#/Vol] 3.45 10*6/uL Low [facility] WBC corrected for nucl RBC Auto (Bld) [#/Vol] 8.0 [facility] COMPREHENSIVE METABOLIC PANE Phu 10-16-2023 Albumin [Mass/Vol] 2.7 g/dL Low 3.2-5.3 [facility] Comment on above: Performed By: #### C BCA, BMP, 22603-8, 76218-7, 90330-4 #### [facility] ([id number]) [address] [place] [address] 51369 ALP [Catalytic activity/Vol] 55 U/L Normal 39-130 [facility] Comment on above: Performed By: #### C BCA, BMP, 44972-8, 18982-5, 40880-4 #### [facility] ([id number]) [address] [place] [address] 51641 ALT [Catalytic activity/Vol] 9 U/L Normal 0-31 [facility] Comment on above: Performed By: #### C BCA, BMP, 03829-6, 00417-5, 19394-1 #### [facility] ([id number]) [address] [place] [address] 06450 Anion gap [Moles/Vol] 8 mmol/L Normal 5-15 [facility] Comment on above: Performed By: #### C BCA, BMP, 06661-0, 08355-9, 83246-4 #### [facility] ([id number]) [address] [place] [address] 54836 AST [Catalytic activity/Vol] 13 U/L Normal 0-41 [facility] Comment on above: Performed By: #### C BCA, BMP, 82172-8, 93653-4, 78146-5 #### [facility] ([id number]) [address] [place] [address] 76849 Bilirubin [Mass/Vol] 0.4 mg/dL Normal 0.3-1.2 [facility] Comment on above: Performed By: #### C BCA, BMP, , 51576-9, 23560-7 #### [facility] ([id number]) [address] [place] [address] 72717 Calcium [Mass/Vol] 8.4 mg/dL Low 8.5-10.5 [facility] Comment on above: Performed By: #### C BCA, BMP, , 13743-8, 36210-5 #### [facility] ([id number]) [address] [place] [address] 11110 Chloride [Moles/Vol] 101 mmol/L Normal 98-109 [facility] Comment on above: Performed By: #### C BCA, BMP, , 59100-7, 24437-0 #### [facility] ([id number]) [address] [place] [address] 33189 CO2 [Moles/Vol] 28 mmol/L Normal 22-32 [facility] Comment on above: Performed By: #### C BCA, BMP, , 62601-3, 00708-5 #### [facility] ([id number]) [address] [place] [address] 62215 Creatinine [Mass/Vol] 2.63 mg/dL High 0.40-1.00 [facility] Comment on above: Result Comment: METH OD TRACEABLE TO IDMS STANDARD Performed By: #### C VIRGILIO, MARIO, , 77374-3, 00213-4 #### [facility] ([id number]) [address] [place] [address] 37672 GFR/1.73 sq M.predicted among non-blacks MDRD (S/P/Bld) [Vol rate/Area] 20 mL/min/{1.73_m2} Low >59 [facility] Comment on above: Result Comment: Reported eGFR is based on the CKD-EPI 2020 equation that does not use a race coefficient. Performed By: #### C VIRGILIO, MARIO, , 02621-2, 05985-5 #### [facility] ([id number]) [address] [place] [address] 49635 Glucose [Mass/Vol] 107 mg/dL High 65-99 [facility] Comment on above: Performed By: #### C VIRGILIO, MARIO, , 23796-6, 88186-8 #### [facility] ([id number]) [address] [place] [address] 91795 Potassium [Moles/Vol] 3.2 mmol/L Low 3.5-5.0 [facility] Comment on above: Performed By: #### C VIRGILIO, MARIO, , 80783-0, 15969-6 #### [facility] ([id number]) [address] [place] [address] 10533 Protein [Mass/Vol] 5.4 g/dL Low 6.0-8.0 [facility] Comment on above: Performed By: #### C VIRGILIO, BMP, , 08434-9, 80668-8 #### [facility] ([id number]) [address] [place] [address] 18906 Sodium [Moles/Vol] 137 mmol/L Normal 134-146 [facility] Comment on above: Performed By: #### C BCA, BMP, 19354-5, 96357-6, 04988-1 #### [facility] ([id number]) [address] [place] [address] 82130 Urea nitrogen [Mass/Vol] 23 mg/dL Normal 5-23 [facility] Comment on above: Performed By: #### C BCA, BMP, 87771-0, 74285-1, 20156-9 #### [facility] ([id number]) [address] [place] [address] 16909 Calcium.ionized (Bld) [Moles /Vol]on 10-16-2023 [facility] [facility] PORTABLE ICA 4.6 mg/dL Normal 4.5-5.3 [facility] Comment on above: Performed By: #### C BCA, BMP, 65264-8, 77697-4, 41415-6 #### [facility] ([id number]) [address] [place] [address] 69554 Cardiac echo study Procedure Ordered By: Cole Hannah on 10-16-2023 Aortic root 3.30 cm [facility] Work Phone: AV mean gradient 7.00 mmHg [employer] Work Phone: AV peak gradient 13.99 mmHg [employer] Work Phone: AV peak gerber 187.00 cm/s VIVA Work Phone: AV valve area 2.07 cm2 [facility]IVA Work Phone: AV Velocity Ratio 0.66 [facility] Work Phone: AV VTI 38.50 cm [facility] Work Phone: E wave deceleration time 232.00 msec [facility]IV[facility] Work Phone: E/A ratio 1.62 [facility] Work Phone: Echo EF Estimated 69 % [facility] Work Phone: EF 69 % [facility] Work Phone: Energy loss index 1.18 [facility] Work Phone: FS 38 % 28 - 44 % [facility] Work Phone: Interventricular Septum Diastolic Thickness by 2D 10 cm [facility] Work Phone: IVS 1.00 cm 0.6 - 1.1 cm [facility] Work Phone: LA size 3.70 cm [facility] Work Phone: LA volume 71.00 cm3 [facility] Work Phone: LA Volume Index 28.1 mL/m2 [facility] Work Phone: Left Ventricle Mass 181.774428552468169 g [facility] Work Phone: LV Diastolic Volume 101.00 mL [facility] Work Phone: LV ESV A2C 61.50 mL [facility] Work Phone: LV ESV A4C 81.70 mL [facility] Work Phone: LV RWT 2D 40.00 [facility] Work Phone: LV Systolic Volume 31.70 mL [facility] Work Phone: LVIDd 5.00 cm 7.85 - 10.91 cm [facility] Work Phone: LVIDs 3.10 cm 4.53 - 6.87 cm [facility] Work Phone: LVOT diameter 2.00 cm [facility] Work Phone: LVOT peak gerber 1.16 m/s [facility] Work Phone: LVOT peak VTI 25.40 cm [facility] Work Phone: LVOT stroke volume 79.80 ml [facility] Work Phone: MV Peak A Gerber 83.70 cm/s [facility] Work Phone: MV Peak E Gerber 136.00 cm/s [facility] Work Phone: MV pressure 1/2 time 68.00 ms [facility] [email or web address] Work Phone: MV TDI E' (medial) 4.68 cm/s [facility] Work Phone: MV valve area p 1/2 method 3.24 cm2 [facility] Work Phone: PW 1.00 cm 0.6 - 1.1 cm [facility] Work Phone: RA 2D Volume 16.8 mL/m2 [facility] Work Phone: RA area 15.3 cm2 [facility] Work Phone: RV diastolic dimension (basal) 39.0 mm [facility] Work Phone: RVID d 3.9 cm [facility] Work Phone: TAPSE 2.09 cm [facility] Work Phone: TASV 11.5 cm/s [facility] Work Phone: TDI 6.64 cm/s [facility] Work Phone: Valve area - Index 0.8 [facility] Work Phone: ZLVIDD -6.16 [facility] Work Phone: ZLVIDS -4.64 [facility] Work Phone: [facility] Work Phone: Cardiac echo study Procedure on [...] Mitral valve structure is normal. There is uzfsy-tm-jora regurgitation with a centrally directed jet. There [...] is normal. [facility] Radiology Study observation (narrative) [facility] Clinical Pathologyon 024 Clinical Pathology Normal [facility] Comment on above: Result Comment: [facility] [address] [place] [address] Clinical Pathology Report Patient Name:DANIELLE MONTANA:1965 (Age: 58)Gender:FTaken:4Reported:4Physician(s):Alhaji Flores MD ([phone])Copy To: Rec. 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 No monoclonal protein identified. Report Electronically Signed Out 10/18/2023nicci Gomez MD [facility], [address] [place] [address], License number: [id number]. Clinical History D17.9, I16.0, E87.6. URINE PROTEIN ELECTROPHORESIS SAMPLE NUMBER: [id number] RELATIVE ELECTROPHORETIC CONCENTRATIONS (%) ? 100.0 Urine Protein 1410 mg/L (Electrophoretic gels and densitometric tracings on file in lab.) Specimen(s) Received Urine Protein Electrophoresis Fee Codes(s): 1; 91174-64 Comprehensive metabolic pane [facility] 10-16-2023 Albumin [Mass/Vol] 2.7 g/dL Low 3.2 - 5.3 g/dL [facility] ALP [Catalytic activity/Vol] 55 U/L 39 - 130 U/L [facility] ALT No additional P-5'-P [Catalytic activity/Vol] 9 U/L 0 - 31 U/L [facility] Anion gap [Moles/Vol] 8 mmol/L 5 - 15 mmol/L [facility] AST [Catalytic activity/Vol] 13 U/L 0 - 41 U/L [facility] Bilirubin [Mass/Vol] 0.4 mg/dL 0.3 - 1 .2 mg/dL [facility] Calcium [Mass/Vol] 8.4 mg/dL Low 8.5 - 10. 5 mg/dL [facility] Chloride [Moles/Vol] 101 mmol/L 98 - 10 9 mmol/L [facility] CO2 [Moles/Vol] 28 mmol/L 22 - 32 mmol/L [facility] Creatinine [Mass/Vol] 2.63 mg/dL High 0.40 - 1.00 mg/dL [facility] Comment on above: METHOD TRACEABLE TO BACKUS HOSPITAL STANDARD eGFR (CKD-EPI)non-race dependent 20 Low - PINF [facility] Comment on above: Reported eGFR is based on the CKD-EPI 2021 equation that does not use a race coefficient. Glucose [Mass/Vol] 107 mg/dL High 65 - 99 mg/dL [facility] Interpretation and review of laboratory results Abnormal [facility] Potassium [Moles/Vol] 3.2 mmol/L Low 3.5 - 5.0 mmol/L [facility] Protein [Mass/Vol] 5.4 g/dL Low 6.0 - 8.0 g/dL [facility] Sodium [Moles/Vol] 137 mmol/L 134 - 146 mmol/L [facility] Urea nitrogen [Mass/Vol] 23 mg/dL 5 - 23 mg/dL [facility] D-Dimeron 10-16-2023 Fibrin D-dimer DDU (PPP) [Mass/Vol] 499 High NINF [facility] Comment on above: Results >=255ng/mL DDU: [...] Interpretation and review of laboratory results Abnormal [facility] D DIMER 499 ng/mL DDU High <255 [facility] Comment on above: Result Comment: Results [...] D-Dimer level. Performed By: #### C VIRGILIO, [facility], 46669-8, 47419-3, 05450-1 #### [facility] ([id number]) [address] [place] [address], [place] [address] Free light chainson 10-16-19 Immunoglobulin light chains.kappa.free (S) [Mass/Vol] 3.52 mg/dL High 0.33 - 1.94 mg/dL [facility] Immunoglobulin light chains.kappa.free/Immuno globulin light chains.lambda (S) [Mass ratio] 0.94 0.26 - 1.65 [facility] Immunoglobulin light chains.lambda [Mass/Vol] 3.75 mg/dL High 0.57 - 2.63 mg/dL [facility] Interpretation and review of laboratory results Abnormal [facility] HGB A1C (GLYCO-HGB)on 2023 Glucose [Mass/Vol] 111 mg/dL Normal [facility] Comment on above: Performed By: #### MARIO Gale BCA, 74364-3, 79391-4, 87907-1 #### [facility] ([id number]) [address] [place] [address] 14055 HbA1c (Bld) [Mass fraction] 5.5 % Normal 4.4-5.6 [facility] Comment on above: Result Comment: NOTE ADA Guidelines Result HgbA1c Normal : less than 5.7 % Prediabetes : 5.7 % to 6.4 % Diabetes : > 6.4 % Use with caution in patients with abnormal hemoglobin variants as the half-life of red blood cells and in vivo glycation rates are affected. Performed By: #### MARIO Gale BCA, 30206-4, 26139-8, 92891-9 #### [facility] ([id number]) [address] [place] [address] 32283 Hemoglobin A1con 10-16-2023 Average glucose Estimated from glycated hemoglobin (Bld) [Mass/Vol] 111 mg/dL [facility] HbA1c (Bld) [Mass fraction] 5.5 % 4.4 - 5.6 % [facility] Comment on above: NOTE ADA Guidelines Result HgbA1c Normal : less than 5.7 % Prediabetes : 5.7 % to 6.4 % Diabetes : > 6.4 % Use with caution in patients with abnormal hemoglobin variants as the half-life of red blood cells and in vivo glycation rates are affected. [facility] MAGNESIUMon 10-16-2023 Magnesium [Mass/Vol] 2.1 mg/dL Normal 1.8-2.6 [facility] Comment on above: Performed By: #### C MARIO POOLE, , 47881-2, 91009-1 #### [facility] ([id number]) [address] [place] [address] 81553 MICROALBUMIN - ALBUMIN:CREAT ININE URINE RATIOon 10-16-2023 ALB/CREAT RATIO 3392.0 mg/g creat High 0.0-30.0 Pr [facility] Comment on above: Performed By: #### C MARIO POOLE, , 15209-9, 74316-8 #### [facility] ([id number]) [address] [place] [address] 32199 Albumin DL <= 20 mg/L (U) [Mass/Vol] 88.6 mg/dL High 0.0-1.9 [facility] Comment on above: Performed By: #### MARIO Gale BCA, , 37363-9, 58516-1 #### [facility] ([id number]) [address] [place] [address] 61755 URINE CREAT 26.12 mg/dL Normal [facility] Comment on above: Performed By: #### MARIO Gale BCA, , 00525-8, 40600-6 #### [facility] ([id number]) [address] [place] [address] 26986 Magnesiumon 10-16-2023 Magnesium [Mass/Vol] 2.1 mg/dL 1.8 - 2 .6 mg/dL [facility] Microalbumin - Albumin: Crea tinine Urine Ratioon 10-16-2023 Albumin DL <= 20 mg/L (U) [Mass/Vol] 88.6 mg/dL High 0.0 - 1.9 mg/dL [facility] Albumin/Creatinine DL <= 1.0 mg/L (U) [Ratio] 3392.0 High [facility] Creatinine (U) [Mass/Vol] 26.12 mg/dL [facility] Interpretation and review of laboratory results Abnormal [facility] No Panel Informationon 10-15 [facility] Nuclear Ab IA Ql (S)on 10-15 [facility] PHOSPHORUSon 10-16-2023 Phosphate [Mass/Vol] 4.3 mg/dL Normal 2.4-4.9 [facility] Comment on above: Performed By: #### C MARIO POOLE, 77485-6, 75170-0, 25827-8 #### [facility] ([id number]) [address] [place] [address] 88070 POCT Ionized Calciumon 10-15 Calcium.ionized (Bld) [Moles/Vol] 4.6 mg/dL 4.5 - 5.3 mg/dL [facility] POTASSIUMon 10-16-2023 Potassium [Moles/Vol] 4.8 mmol/L Normal 3.5-5.0 [facility] Comment on above: Result Comment: SPEC IMEN HEMOLYZED, RESULTS INCREASED Performed By: #### C MARIO POOLE, 95874-7, 03217-3, 23960-7 #### [facility] ([id number]) [address] [place] [address] 00516 PROTEIN CREAT RATIOon 2023 RANDOM URINE PROTEIN 1270 mg/L High <120 [facility] Comment on above: Performed By: #### C MARIO POOLE, 86312-5, 59996-2, 58953-5 #### [facility] ([id number]) [address] [place] [address] 09865 U/PRO/ACID ETCH OPERATOR RATIO CALC 4.72 High <0.2 [facility] Comment on above: Result Comment: Neph rotic Syndrome is associated with ratios >3.5 Performed By: #### C BCA, BMP, 54989-0, 67282-1, 32203-3 #### [facility] ([id number]) [address] [place] [address] URINE CREATININE,RDM 26.92 mg/dL Normal [facility] Comment on above: Performed By: #### C BCA, BMP, 67380-9, 89418-5, 24511-2 #### [facility] ([id number]) [address] [facility], [place] [address] Phosphate [Mass/Vol]on 10-15 [facility] Phosphoruson 10-16-2023 Phosphate [Mass/Vol] 4.3 mg/dL 2.4 - 4 .9 mg/dL [facility] Potassiumon 10-16-2023 Potassium [Moles/Vol] 4.8 mmol/L 3.5 - 5.0 mmol/L [facility] Comment on above: SPECIMEN HEMOLYZED, RESULTS INCREASED Potassium [Moles/Vol]on 09-23 [facility] Protein creat ratioon 2023 Creatinine (U) [Mass/Vol] 26.92 mg/dL [facility] Interpretation and review of laboratory results Abnormal [facility] Protein (U) [Mass/Vol] 1270 mg/L High NINF - 120 mg/L [facility] Protein/Creatinine (U) [Ratio] 4.72 High NINF - 0.2 [facility] Comment on above: Nephrotic Syndrome i s associated with ratios >3.5 [facility] Protein electrophoresis, ser umon 10-16-2023 Albumin [Mass/Vol] 2.5 g/dL Low 3.4 - 5.3 g/dL [facility] Alpha 1 globulin Elph [Mass/Vol] 0.4 g/dL 0.1 - 0.4 g/dL [facility] Alpha 2 globulin Elph [Mass/Vol] 0.9 g/dL 0.4 - 1.1 g/dL [facility] Beta globulin Elph [Mass/Vol] 0.5 g/dL 0.5 - 1.2 g/dL [facility] Gamma globulin Elph [Mass/Vol] 0.4 g/dL Low 0.5 - 1.6 g/dL [facility] Interpretation and review of laboratory results Abnormal [facility] Pathologist interpretation (Bld) [Interp] Unremarkable protein distribution, no monoclonal bands. [facility] Protein [Mass/Vol] 4.7 g/dL Low 6.0 - 8.0 g/dL [facility] URINALYSISon 10-16-2023 Bilirubin Ql (U) Negative Normal NEG [facility] Comment on above: Performed By: #### C VIRGILIO, BMP, 78861-5, 74686-8, 29253-7 #### [facility] ([id number]) [address] [place] [address] 22785 BLOOD/HGB Large Abnormal NEG [facility] Comment on above: Performed By: #### Shahla POOLE, BMP, 43560-9, 90305-7, 01038-5 #### [facility] ([id number]) [address] [place] [address] 59712 Color (U) YELLOW Normal YELLOW [facility] Comment on above: Performed By: #### Shahla BCA, BMP, 02589-1, 02204-3, 02941-6 #### [facility] ([id number]) [address] [place] [address] 76323 Glucose Ql (U) Negative Normal NEG [facility] Comment on above: Performed By: #### Shahla BCA, BMP, 31125-4, 67476-2, 05668-9 #### [facility] ([id number]) [address] [place] [address] 28938 Ketones Ql (U) Negative Normal NEG [facility] Comment on above: Performed By: #### Shahla BCA, BMP, 82516-3, 01092-7, 63524-5 #### [facility] ([id number]) [address] [place] [address] Leukocyte esterase Test strip Ql (U) Negative Normal NEG [facility] Comment on above: Performed By: #### C VIRGILIO, BMP, 63001-8, 95694-7, 81288-9 #### [facility] ([id number]) [address] [place] [address] 16533 Nitrite Ql (U) Negative Normal NEG [facility] Comment on above: Performed By: #### C VIRGILIO, BMP, 93586-1, 43801-3, 28030-2 #### [facility] ([id number]) [address] [place] [address] 49649 pH (U) 6.0 [pH] Normal 5.0-8.5 [facility] Comment on above: Performed By: #### C VIRGILIO, BMP, 05987-3, 48489-1, 50229-4 #### [facility] ([id number]) [address] [place] [address] 32032 Protein Ql (U) 100 mg/dL Abnormal NEG [facility] Comment on above: Performed By: #### C VIRGILIO, BMP, 98899-9, 02236-6, 98257-2 #### [facility] ([id number]) [address] [place] [address] 96472 R.B.CELLS 80 /hpf High 0-5 [facility] Comment on above: Performed By: #### C VIRGILIO, BMP, 82904-2, 04080-3, 38772-1 #### [facility] ([id number]) [address] [place] [address] 38667 Specific gravity (U) [Rel density] 1.015 Normal 1.003-1.[address] [place] [address] Comment on above: Performed By: #### C VIRGILIO, BMP, 26668-3, 72776-0, 26241-0 #### [facility] ([id number]) [address] [place] [address] 36211 SQUAMOUS EPITHELIUM 2 /hpf Normal 0-5 [facility] Comment on above: Performed By: #### C VIRGILIO, MARIO, , 84757-2, 59866-8 #### [facility] ([id number]) [address] [place] [address] 75240 TURBIDITY CLEAR Normal CLEAR [facility] Comment on above: Performed By: #### C VIRGILIO, BMP, , 89965-8, 70977-6 #### [facility] ([id number]) [address] [place] [address] 77588 Urobilinogen Qn (U) 0.2 {Micaela'U}/dL Normal <1.1 [facility] Comment on above: Performed By: #### C VIRGILIO, MARIO, , 69703-8, 30785-1 #### [facility] ([id number]) [address] [place] [address] 46546 W.B.CELLS 5 /hpf Normal 0-5 [facility] Comment on above: Performed By: #### C MARIO POOLE, , 14223-3, 77656-5 #### [facility] ([id number]) [address] [place] [address] 75854 URINE PROTEIN ELECTROPHORESI Son 10-16-2023 UPREL INTERP SEE SEPARATE REPORT Normal [facility] URINE VOLUME AND TIMEon 09-23 TIME 24 h Normal [facility] Comment on above: Performed By: #### U CR, UPRO ####[facility] ([id number])[address] [facility] [address], [place] [address] TOTAL VOLUME 4400 mL Normal [facility] Comment on above: Performed By: #### U CR, UPRO ####[facility] ([id number]) [facility], [address] [place] [address] 98798 US RETROPERITONEAL COMPLETEo n 10-16-2023 US RETROPERITONEAL [...] Maksim Unger MD on 10/16/2023 9:42 AM [facility] US Retroperitoneumon 024 US RETROPERITONEAL COMPLETE: [...] Maksim Unger MD on 10/16/2023 9:42 [facility] - 10/16/2023 US RETROPERITONEAL [...] Maksim Unger MD on 10/16/2023 9:42 AM [facility] Radiology Study observation (narrative) [facility] US RetroperitoneumOrdered By : Maksim Unger on 10-16-2023 [facility] Work Phone: US.doppler Lower extremity v ein - bilateralon 10-16-2023 Radiology Study observation (narrative) [facility] Urinalysison 10-16-2023 Bilirubin Ql (U) Negative Negative^N egative [facility] Color (U) YELLOW YELLOW^YEL LOW [facility] Epithelial cells Auto (Urine sed) [#/Area] 2 [facility] Glucose (U) [Mass/Vol] Negative Negat marva^N egative mg/dL [facility] Hemoglobin Auto test strip Ql (U) Large Abnormal Negative^N egative [facility] Interpretation and review of laboratory results Abnormal [facility] Ketones (U) [Mass/Vol] Negative Negat marva^N egative mg/dL [facility] Leukocyte esterase Auto test strip Ql (U) Negative Negative^N egative [facility] Nitrite Auto test strip Ql (U) Negative Negative^N egative [facility] pH (U) 6.0 [pH] 5.0 - 8.5 [facility] Protein (U) [Mass/Vol] 100 mg/dL Abnormal Negat marva^N egative [facility] RBC Auto (Urine sed) [#/Area] 80 High [facility] Specific gravity Refractometry automated (U) [Rel density] 1.015 1.003 - 1.035 [facility] Turbidity Ql (U) CLEAR CLEAR^NUNU R [facility] Urobilinogen Qn (U) 0.2 NINF [facility] WBC Auto (Urine sed) [#/Area] 5 [facility] Basement membrane IgG Qn (S) on 10-15-2023 Glomerular Base Memb IgG <0.2 Normal <1. 0 (Negative) [facility] Comment on above: Result Comment: NOTE Test Performed by: [facility] [address] [place] [address] Immigration Officer: Ledy Son Ph.D.; CLIA# [id number] Performed By: #### C VIRGILIO BMP, 71816-6, 73588-1, 44814-6 #### [facility] ([id number]) [address] [place] [address] 88153 CBC AND AUTO DIFFon 10-15-19 24 ABSOLUTE BASOPHIL 0.1 X10E9/L Normal 0.0-0.2 [facility] Comment on above: Performed By: #### C VIRGILIO CMP, #### [facility] ([id number]) [address] [place] [address] 03175 ABSOLUTE NEUTROPHIL 6.8 X10E9/L High 1.5-6.6 [facility] Comment on above: Performed By: #### C VIRGILIO CMP, 48385-2 #### [facility] ([id number]) [address] [place] [address] 82320 Basophils/100 WBC (Bld) 0.7 % Normal [facility] Comment on above: Performed By: #### Shahla POOLE CMP, 68893-7 #### [facility] ([id number]) [address] [place] [address] 19214 Eosinophils (Bld) [#/Vol] 0.3 10*3/uL Normal 0.0-0.4 [facility] Comment on above: Performed By: #### Shahla POOLE CMP, 91202-3 #### [facility] ([id number]) [address] [place] [address] 06907 Eosinophils/100 WBC (Bld) 3.3 % Normal [facility] Comment on above: Performed By: #### Shahla POOLE CMP, 76986-5 #### [facility] ([id number]) [address] [place] [address] 72466 Erythrocyte distribution width (RBC) [Ratio] 14.6 % Normal 11.5-15.0 [facility] Comment on above: Performed By: #### Shahla POOLE CMP, #### [facility] ([id number]) [address] [place] [address] 45809 Hematocrit (Bld) [Volume fraction] 30.1 % Low 35-47 [facility] Comment on above: Performed By: #### Shahla POOLE CMP, #### [facility] ([id number]) [address] [place] [address] 40107 Hemoglobin (Bld) [Mass/Vol] 10.0 g/dL Low 11.7-15.5 [facility] Comment on above: Performed By: #### Shahla POOLE CMP, #### [facility] ([id number]) [address] [place] [address] 89247 Lymphocytes (Bld) [#/Vol] 2.4 10*3/uL Normal 1.0-3.5 [facility] Comment on above: Performed By: #### Shahla POOLE CMP, #### [facility] ([id number]) [address] [place] [address] 27713 Lymphocytes/100 WBC (Bld) 23.7 % Normal [facility] Comment on above: Performed By: #### Shahla POOLE CMP, #### [facility] ([id number]) [address] [place] [address] 33558 MCH (RBC) [Entitic mass] 27.7 pg Normal 27-34 [facility] Comment on above: Performed By: #### Shahla POOLE CMP, #### [facility] ([id number]) [address] [place] [address] 18922 MCHC (RBC) [Mass/Vol] 33.1 g/dL Normal 32-36 [facility] Comment on above: Performed By: #### Shahla POOLE CMP, #### [facility] ([id number]) [address] [place] [address] 20141 MCV (RBC) [Entitic vol] 84 fL Normal 80-100 [facility] Comment on above: Performed By: #### Shahla POOLE CMP, #### [facility] ([id number]) [address] [place] [address] 81867 Monocytes (Bld) [#/Vol] 0.6 10*3/uL Normal 0-0.9 [facility] Comment on above: Performed By: #### Shahla POOLE CMP, #### [facility] ([id number]) [address] [place] [address] 48449 Monocytes/100 WBC (Bld) 5.5 % Normal [facility] Comment on above: Performed By: #### Shahla POOLE CMP, 95494-8 #### [facility] ([id number]) [address] [place] [address] 65350 Neutrophils/100 WBC (Bld) 66.8 % Normal [facility] Comment on above: Performed By: #### Shahla POOLE CMP, 21989-0 #### [facility] ([id number]) [address] [place] [address] 21057 Platelet mean volume (Bld) [Entitic vol] 9.0 fL Normal 7-12 [facility] Comment on above: Performed By: #### Shahla POOLE [facility], 76746-5 #### [facility] ([id number]) [address] [place] [address] 72127 Platelets (Bld) [#/Vol] 312 10*3/uL Normal 150-450 [facility] Comment on above: Performed By: #### Shahla POOLE [facility], 72637-0 #### [facility] ([id number]) [address] [place] [address] 89288 RBC COUNT 3.59 X10E12/L Low 3.80-5.20 [facility] Comment on above: Performed By: #### Shahla POOLE [facility], 88925-3 #### [facility] ([id number]) [address] [place] [address] 06121 WBC (Bld) [#/Vol] 10.2 10*3/uL Normal 4.0-11.0 [facility] Comment on above: Performed By: #### Shahla POOLE CMP, 54732-0 #### [facility] ([id number]) [address] [place] [address] 35432 CBC auto differentialon 09-23 Basophils (Bld) [#/Vol] 0.1 10*3/uL [facility] Basophils/100 WBC (Bld) 0.7 % [facility] Eosinophils (Bld) [#/Vol] 0.3 10*3/uL [facility] Eosinophils/100 WBC (Bld) 3.3 % [facility] Erythrocyte distribution width (RBC) [Ratio] 14.6 % 11.5 - 15.0 % [facility] Hematocrit (Bld) [Volume fraction] 30.1 % Low 35 - 47 % [facility] Hemoglobin (Bld) [Mass/Vol] 10.0 g/dL Low 11.7 - 15.5 g/dL [facility] Interpretation and review of laboratory results Abnormal [facility] Lymphocytes (Bld) [#/Vol] 2.4 10*3/uL [facility] Lymphocytes/100 WBC (Bld) 23.7 % [facility] MCH (RBC) [Entitic mass] 27.7 pg 27 - 34 pg [facility] MCHC (RBC) [Mass/Vol] 33.1 g/dL 32 - 3 6 g/dL [facility] MCV (RBC) [Entitic vol] 84 fL 80 - 100 fL [facility] Monocytes (Bld) [#/Vol] 0.6 10*3/uL [facility] Monocytes/100 WBC (Bld) 5.5 % [facility] Neutrophils (Bld) [#/Vol] 6.8 10*3/uL High [facility] Neutrophils/100 WBC (Bld) 66.8 % [facility] Platelet mean volume (Bld) [Entitic vol] 9.0 fL 7 - 12 fL [facility] Platelets (Bld) [#/Vol] 312 10*3/uL [facility] RBC (Bld) [#/Vol] 3.59 10*6/uL Low [facility] WBC corrected for nucl RBC Auto (Bld) [#/Vol] 10.2 [facility] CK Totalon 10-15-2023 CK [Catalytic activity/Vol] 82 U/L 24 - 170 U/L [facility] CK [Catalytic activity/Vol]o n 10-15-2023 [facility] CPK 82 U/L Normal 24-170 [facility] Comment on above: Performed By: #### C VIRGILIO, MARIO, 98483-7, 43621-8, 68842-4 #### [facility] ([id number]) [address] [place] [address], [place] [address] COMPLEMENT PROFILEon 024 COMPLEMENT C3 113 mg/dL Normal 86-184 [facility] Comment on above: Performed By: #### C BCA, BMP, 33119-0, 41237-7, 81261-1 #### [facility] ([id number]) [address] [place] [address] 07453 COMPLEMENT C4 36 mg/dL Normal 16-47 [facility] Comment on above: Performed By: #### C BCA, BMP, , 33099-4, 77109-9 #### [facility] ([id number]) [address] [place] [address] 14090 COMPREHENSIVE METABOLIC PANE Phu 10-15-2023 Albumin [Mass/Vol] 2.8 g/dL Low 3.2-5.3 [facility] Comment on above: Performed By: #### C BCA, CMP, #### [facility] ([id number]) [address] [place] [address] 65853 ALP [Catalytic activity/Vol] 61 U/L Normal 39-130 [facility] Comment on above: Performed By: #### C BCA, CMP, 88006-3 #### [facility] ([id number]) [address] [place] [address] 34995 ALT [Catalytic activity/Vol] 10 U/L Normal 0-31 [facility] Comment on above: Performed By: #### C BCA, CMP, 30611-1 #### [facility] ([id number]) [address] [place] [address] 71212 Anion gap [Moles/Vol] 10 mmol/L Normal 5-15 [facility] Comment on above: Performed By: #### C BCA, CMP, 85370-6 #### [facility] ([id number]) [address] [place] [address] 21138 AST [Catalytic activity/Vol] 14 U/L Normal 0-41 [facility] Comment on above: Performed By: #### C VIRGILIO CMP, 33184-3 #### [facility] ([id number]) [address] [place] [address] 80462 Bilirubin [Mass/Vol] 0.4 mg/dL Normal 0.3-1.2 [facility] Comment on above: Performed By: #### C VIRGILIO, CMP, #### [facility] ([id number]) [address] [place] [address] 64986 Calcium [Mass/Vol] 8.4 mg/dL Low 8.5-10.5 [facility] Comment on above: Performed By: #### C VIRGILIO, [facility], 29574-4 #### [facility] ([id number]) [address] [place] [address] 41392 Chloride [Moles/Vol] 104 mmol/L Normal 98-109 [facility] Comment on above: Performed By: #### Shahla POOLE [facility], 53421-4 #### [facility] ([id number]) [address] [place] [address] 86032 CO2 [Moles/Vol] 26 mmol/L Normal 22-32 [facility] Comment on above: Performed By: #### Shahla POOLE [facility], 52800-3 #### [facility] ([id number]) [address] [place] [address] 09941 Creatinine [Mass/Vol] 2.56 mg/dL High 0.40-1.00 [facility] Comment on above: Result Comment: METH OD TRACEABLE TO IDMS STANDARD Performed By: #### C VIRGILIO, CMP, 00308-0 #### [facility] ([id number]) [address] [place] [address] 04147 GFR/1.73 sq M.predicted among non-blacks MDRD (S/P/Bld) [Vol rate/Area] 21 mL/min/{1.73_m2} Low >59 [facility] Comment on above: Result Comment: Reported eGFR is based on the CKD-EPI 2020 equation that does not use a race coefficient. Performed By: #### C EDEL POOLE, 71950-8 #### [facility] ([id number]) [address] [place] [address] 11628 Glucose [Mass/Vol] 103 mg/dL High 65-99 [facility] Comment on above: Performed By: #### C EDEL POOLE, 88151-3 #### [facility] ([id number]) [address] [place] [address] 89317 Potassium [Moles/Vol] 3.2 mmol/L Low 3.5-5.0 [facility] Comment on above: Performed By: #### C EDEL POOLE, #### [facility] ([id number]) [address] [place] [address] 88815 Protein [Mass/Vol] 5.6 g/dL Low 6.0-8.0 [facility] Comment on above: Performed By: #### C VIRGILIO [facility], 77061-2 #### [facility] ([id number]) [address] [place] [address] 67167 Sodium [Moles/Vol] 140 mmol/L Normal 134-146 [facility] Comment on above: Performed By: #### C VIRGILIO [facility], 26199-3 #### [facility] ([id number]) [address] [place] [address] 31516 Urea nitrogen [Mass/Vol] 20 mg/dL Normal 5-23 [facility] Comment on above: Performed By: #### C EDEL POOLE, 60343-0 #### [facility] ([id number]) [address] [place] [address] 32738 CRYOGLOBULIN WITH IDon 10-14 CRYOGLOBULIN, QUAL NEG 72HOUR Normal NEG 72Hour [facility] Comment on above: Result Comment: NOTE This test was developed and its performance characteristics determined by [employer]. It has not been cleared or approved by the [place] Food and Drug Administration. This test was performed in a CLIA certified laboratory and is intended for clinical purposes. Performed By: [employer] [address] [place] [address] 77086 Aquatics Instructor: Hank Armstrong MD, PhD CLIA Number: [id number] Performed By: #### 8 9579-7 #### [facility] ([id number]) [address] [place] [address], [place] [address] Cobalamin (Vitamin B12) [Mas s/Vol]on 10-15-2023 Interpretation and review of laboratory results Abnormal [facility] Complement profile (C3 AND C 4)on 10-15-2023 Complement C3 [Mass/Vol] 113 mg/dL 86 - 184 mg/dL [facility] Complement C4 [Mass/Vol] 36 mg/dL 16 - 47 mg/dL [facility] Comprehensive metabolic pane phu 10-15-2023 Albumin [Mass/Vol] 2.8 g/dL Low 3.2 - 5.3 g/dL [facility] ALP [Catalytic activity/Vol] 61 U/L 39 - 130 U/L [facility] ALT No additional P-5'-P [Catalytic activity/Vol] 10 U/L 0 - 31 U/L [facility] Anion gap [Moles/Vol] 10 mmol/L 5 - 15 mmol/L [facility] AST [Catalytic activity/Vol] 14 U/L 0 - 41 U/L [facility] Bilirubin [Mass/Vol] 0.4 mg/dL 0.3 - 1 .2 mg/dL [facility] Calcium [Mass/Vol] 8.4 mg/dL Low 8.5 - 10. 5 mg/dL [facility] Chloride [Moles/Vol] 104 mmol/L 98 - 10 9 mmol/L [facility] CO2 [Moles/Vol] 26 mmol/L 22 - 32 mmol/L [facility] Creatinine [Mass/Vol] 2.56 mg/dL High 0.40 - 1.00 mg/dL [facility] Comment on above: METHOD TRACEABLE TO [facility] STAND[facility] eGFR (CKD-EPI)non-race dependent 21 Low - PINF [facility] Comment on above: Reported eGFR is based on the CKD-EPI 2020 equation that does not use a race coefficient. Glucose [Mass/Vol] 103 mg/dL High 65 - 99 mg/dL [facility] Potassium [Moles/Vol] 3.2 mmol/L Low 3.5 - 5.0 mmol/L [facility] Protein [Mass/Vol] 5.6 g/dL Low 6.0 - 8.0 g/dL [facility] Sodium [Moles/Vol] 140 mmol/L 134 - 146 mmol/L [facility] Urea nitrogen [Mass/Vol] 20 mg/dL 5 - 23 mg/dL [facility] Creatinine (U) [Mass/Vol]on 10-15-2023 [facility] URINE CREATININE,RDM 102.61 mg/dL Normal [facility] Comment on above: Performed By: #### C MARIO POOLE, , 13853-5, 72724-2 #### [facility] ([id number]) [address] [place] [address] 86132 FERRITINon 10-15-2023 Ferritin [Mass/Vol] 45 ng/mL Normal 11-307 [facility] Comment on above: Performed By: #### C MARIO POOLE, 07390-0, 75344-4, 25101-5 #### [facility] ([id number]) [address] [place] [address] 60170 FREE LIGHT CHAINSon 10-15-19 24 FREE ANDREA/LAMBD RATIO 0.94 Normal 0.26-1.65 [facility] Comment on above: Performed By: #### C MARIO POOLE, , 72235-1, 07352-8 #### [facility] ([id number]) [address] [place] [address] 15492 FREE KAPPA LT CHAINS 3.52 mg/dL High 0.33-1.94 [facility] Comment on above: Performed By: #### C MARIO POOLE, , 66843-2, 24896-6 #### [facility] ([id number]) [address] [place] [address] 01382 FREE LAMBDA LT CHAINS 3.75 mg/dL High 0.57-2.63 [facility] Comment on above: Performed By: #### C MARIO POOLE, , 82387-5, 91628-6 #### [facility] ([id number]) [address] [place] [address] 17516 Ferritinon 10-15-2023 Ferritin [Mass/Vol] 45 ng/mL 11 - 307 ng/mL [facility] Ferritin [Mass/Vol]on 2023 [facility] Folateon 10-15-2023 Folate [Mass/Vol] 10.3 ng/mL 5.8 - PINF ng/mL [facility] Comment on above: NEW REFERENCE RANGE Folate [Mass/Vol]on 10-15-19 24 [facility] FOLIC ACID 10.3 ng/mL Normal >5.8 [facility] Comment on above: Result Comment: NEW REFERENCE RANGE Performed By: #### C MARIO POOLE, , 64420-5, 92513-5 #### [facility] ([id number]) [address] [place] [address] 17656 HBV surface Ab IA Qnon 10-14 Anti HBs quant. <8.00 Normal [facility] Comment on above: Result Comment: Vacc inated: >=12mIU/mL, Positive (Immune) Unvaccinated: <8mIU/mL, Negative (Not Immune) 8-11.99 mIU/mL: Indeterminate, (Considered Not Immune) Performed By: #### C MARIO POOLE, , 97826-8, 61038-8 #### [facility] ([id number]) [address] [place] [address] 84503 HBV surface Ag IA Qlon 10-14 HEPATITIS B SURF AG Negative Normal NEG [facility] Comment on above: Performed By: #### C MARIO POOLE, 53377-6, 88744-7, 87977-3 #### [facility] ([id number]) [address] [place] [address] HCV Ab [place] Qlon 10-15-2023 ANTI HCV W/PCR REFLX Non-Reactive Normal NRCT [facility] Comment on above: Result Comment: If recent infection suspected, recommend repeat testing (>2 months). Zhaefc-sl-rsifzq ratio is <0.80. Performed By: #### C VIRGILIO, MARIO, 23643-5, 67110-6, 56926-1 #### [facility] ([id number]) [address] [place] [address] HIV 1&2 AB/AG Screen (P24 AG )on 10-15-2023 HIV 1+2 Ab+HIV1 p24 Ag IA Ql Non-Reactive Non-Reacti ve^Non-[place] ctive [facility] Comment on above: This information has [...] and 2 Ab/Ag Screen Non-Reactive Normal NRCT [facility] Comment on above: Result Comment: This [...] Performed By: #### C MARIO POOLE, , 33225-6, 09113-9 #### [facility] ([id number]) [address] [place] [address] 23190 Hepatitis B Surface Antibody Quantitationon 10-15-2023 HBV surface Ab IA Qn mIU/mL [facility] Comment on above: Vaccinated: >=12mIU/ mL, Positive (Immune) Unvaccinated: <8mIU/mL, Negative (Not Immune) 8-11.99 mIU/mL: Indeterminate, (Considered Not Immune) Hepatitis B surface antigeno n 10-15-2023 HBV surface Ag IA Ql Negative Negativ e^N egative [facility] Hepatitis C(HCV) Ab w/ Refle x to PCRon 10-15-2023 HCV Ab IA Ql Non-Reactive Non-Reacti ve^Non-[place] ctive [facility] Comment on above: If recent infection suspected, recommend repeat testing (>2 months). Qzizsw-bg-osrkig ratio is <0.80. IRON PROFILEon 10-15-2023 Iron [Mass/Vol] 30 ug/dL Low 50-170 [facility] Comment on above: Performed By: #### C MARIO POOLE, , 66640-2, 73512-8 #### [facility] ([id number]) [address] [place] [address] 45280 IRON BINDING 218 ug/dL Low 250-425 [facility] Comment on above: Performed By: #### C MARIO POOLE, , 66531-1, 05594-8 #### [facility] ([id number]) [address] [place] [address] 06070 IRON SATURATION 14 % SATURATION Low 15-50 [facility] Comment on above: Performed By: #### C MARIO POOLE, 37107-9, 05940-3, 70203-9 #### [facility] ([id number]) [address] [place] [address] 75530 Iron and TIBCon 10-15-2023 Interpretation and review of laboratory results Abnormal [facility] Iron [Mass/Vol] 30 ug/dL Low 50 - 170 ug/dL [facility] Iron binding capacity [Mass/Vol] 218 ug/dL Low 250 - 425 ug/dL [facility] Iron saturation [Mass fraction] 14 Low [facility] MAGNESIUMon 10-15-2023 Magnesium [Mass/Vol] 1.7 mg/dL Low 1.8-2.6 [facility] Comment on above: Performed By: #### C VIRGILIO, CMP, 98489-6 #### [facility] ([id number]) [address] [place] [address] 37184 Magnesiumon 10-15-2023 Magnesium [Mass/Vol] 1.7 mg/dL Low 1.8 - 2 .6 mg/dL [facility] Myeloperoxidase IgG Qn (S)on 10-15-2023 Myeloperoxidase IgG >8.0 High <0.4 (Negative) [facility] Comment on above: Result Comment: NOTE Interpretation: Positive (>=1.0) Test Performed by: [place] [address] Immigration Officer: Ledy Son Ph.D.; CLIA# [id number] Performed By: #### C VIRGILIO, BMP, 51486-7, 97487-3, 60238-6 #### [facility] ([id number]) [address] [place] [address] 19106 No Panel Informationon 10-14 [facility] Interpretation and review of laboratory results Abnormal [facility] Nuclear Ab IA Ql (S)on 10-14 SAUL Screen w/reflex Negative Normal NEG [facility] Comment on above: Result Comment: Testing performed using multiplex flow immunoassay. Eleven different antigens associated with systemic autoimmune diseases (dsDNA,Sm,Sm/SLOT KEY PERSON,SLOT KEY PERSON,Chromatin, SSA,SSB,Yoly-1,Scl70,Ribo P,Centromere B) are included in this screening test. Performed By: #### C MARIO POOLE, 20781-6, 95036-8, 11515-0 #### [facility] ([id number]) [address] [place] [address] 60371 POTASSIUMon 10-15-2023 Potassium [Moles/Vol] 3.5 mmol/L Normal 3.5-5.0 [facility] Comment on above: Performed By: #### C MARIO POOLE, 50351-6, 34816-7, 99020-1 #### [facility] ([id number]) [address] [place] [address] 88208 Potassiumon 10-15-2023 Potassium [Moles/Vol] 3.5 mmol/L 3.5 - 5.0 mmol/L [facility] Potassium [Moles/Vol]on 09-23 [facility] Proteinase 3 IgG IA Qnon Proteinase 3 IgG 0.2 U Normal <0.4 (Negative) [facility] Comment on above: Result Comment: NOTE Test Performed by: [facility] [address] [place] [address] Immigration Officer: Ledy Son Ph.D.; CLIA# [id number] Performed By: #### C MARIO POOLE, 75421-3, 57067-4, 90925-4 #### [facility] ([id number]) [address] [place] [address] 52592 Rheumatoid factoron 10-15-19 24 Rheumatoid factor Nephelometry Qn (S) 76 High NINF [facility] Rheumatoid factor Nephelomet ry Qn (S)on 10-15-2023 Interpretation and review of laboratory results Abnormal [facility] RHEUMATOID FACTOR 76 IU/mL High <20 [facility] Comment on above: Performed By: #### C BCA, BMP, , 38032-6, 00162-1 #### [facility] ([id number]) [address] [place] [address] 65076 SERUM PROTEIN ELECTROPHORESI Son 10-15-2023 Albumin [Mass/Vol] 2.5 g/dL Low 3.4-5.3 [facility] Comment on above: Performed By: #### C BCA, BMP, , 75932-4, 88738-2 #### [facility] ([id number]) [address] [place] [address] 48499 ALPHA 1 GLOBULIN 0.4 g/dL Normal 0.1-0.4 [facility] Comment on above: Performed By: #### C BCA, BMP, , 94485-6, 72487-1 #### [facility] ([id number]) [address] [place] [address] 52603 ALPHA 2 GLOBULIN 0.9 g/dL Normal 0.4-1.1 [facility] Comment on above: Performed By: #### C BCA, BMP, , 46734-1, 40314-6 #### [facility] ([id number]) [address] [place] [address] 80620 BETA GLOBULIN 0.5 g/dL Normal 0.5-1.2 [facility] Comment on above: Performed By: #### C BCA, BMP, , 25865-8, 48922-6 #### [facility] ([id number]) [address] [place] [address] 71952 GAMMA GLOBULIN 0.4 g/dL Low 0.5-1.6 [facility] Comment on above: Performed By: #### C BCA, BMP, , 86964-0, 86411-4 #### [facility] ([id number]) [address] [place] [address] 08174 PROT. ELECTROPHORESIS INTERP Unremarkable protein distribution, no monoclonal bands. Normal [facility] Comment on above: Performed By: #### C MARIO POOLE, , 45529-7, 27083-3 #### [facility] ([id number]) [address] [facility], [place] [address] Protein [Mass/Vol] 4.7 g/dL Low 6.0-8.0 [facility] Comment on above: Performed By: #### C VIRGILIO, BMP, , 33872-8, 22666-5 #### [facility] ([id number]) [address] [place] [address], [place] [address] Sodium (U) [Moles/Vol]on [facility] Sodium, urine, randomon 09-23 Sodium (U) [Moles/Vol] 86 mmol/L Pr [facility] Troponin I, High Sensitivity 1 Houron 10-15-2023 Troponin I.cardiac High sensitivity method [Mass/Vol] 39 ng/L High NINF - 16 ng/L [facility] Comment on above: Elevations of hs-Troponin may be due to causes other than myocardial ischemia. Recommend serial hs-Troponin testing be performed. For the initial evaluation and management of chest pain patients, refer to the algorithms linked below. Emergency Patient: [email or web address] Inpatient: [email or web address] Troponin I.cardiac High sens itivity method [Mass/Vol]on 10-15-2023 Interpretation and review of laboratory results Abnormal [facility] URINALYSISon 10-15-2023 Bilirubin Ql (U) Negative Normal NEG [facility] Comment on above: Performed By: #### C VIRGILIO, BMP, , 22196-0, 13498-4 #### [facility] ([id number]) [address] [place] [address] [place] [address] BLOOD/HGB Large Abnormal NEG [facility] Comment on above: Performed By: #### C BCA, BMP, 37426-2, 23549-7, 61417-4 #### [facility] ([id number]) [address] [place] [address] [place] [address] Color (U) YELLOW Normal YELLOW [facility] Comment on above: Performed By: #### C BCA, BMP, 64609-9, 39488-2, 74122-2 #### [facility] ([id number]) [address] [place] [address] [place] [address] Glucose Ql (U) Negative Normal NEG [facility] Comment on above: Performed By: #### C BCA, BMP, 24197-3, 27233-4, 74480-1 #### [facility] ([id number]) [address] [place] [address] [place] [address] Ketones Ql (U) Negative Normal NEG [facility] Comment on above: Performed By: #### C BCA, BMP, 62854-6, 09533-0, 61125-2 #### [facility] ([id number]) [address] [place] [address] [place] [address] Leukocyte esterase Test strip Ql (U) Negative Normal NEG [facility] Comment on above: Performed By: #### C BCA, BMP, 56952-9, 49302-1, 74310-5 #### [facility] ([id number]) [address] [place] [address] 70945 Nitrite Ql (U) Negative Normal NEG [facility] Comment on above: Performed By: #### C BCA, BMP, 72587-8, 85096-4, 68414-3 #### [facility] ([id number]) [address] [place] [address], [place] [address] pH (U) 6.0 [pH] Normal 5.0-8.5 [facility] Comment on above: Performed By: #### C VIRGILIO, BMP, 22178-2, 08282-9, 78445-1 #### [facility] ([id number]) [address] [place] [address] 15459 Protein Ql (U) >300 Abnormal NEG [facility] Comment on above: Performed By: #### C VIRGILIO, BMP, 36430-8, 65802-5, 60540-2 #### [facility] ([id number]) [address] [place] [address] 98554 R.B.CELLS 30 /hpf High 0-5 [facility] Comment on above: Performed By: #### C VIRGILIO, BMP, 11493-4, 93870-1, 25812-3 #### [facility] ([id number]) [address] [place] [address] 10006 Specific gravity (U) [Rel density] 1.025 Normal 1.003-1.[address] [place] [address] Comment on above: Performed By: #### C VIRGILIO, BMP, 31913-8, 07659-6, 82170-3 #### [facility] ([id number]) [address] [place] [address] 22725 SQUAMOUS EPITHELIUM 6 /hpf High 0-5 [facility] Comment on above: Performed By: #### C VIRGILIO, BMP, 40818-1, 90811-2, 09672-8 #### [facility] ([id number]) [address] [place] [address] 02861 TURBIDITY CLEAR Normal CLEAR [facility] Comment on above: Performed By: #### C VIRGILIO, BMP, 50777-3, 81733-5, 20012-8 #### [facility] ([id number]) [address] [place] [address], [place] [address] Urobilinogen Qn (U) 0.2 {Micaela'U}/dL Normal <1.1 [facility] Comment on above: Performed By: #### C MARIO POOLE, 56167-4, 02223-3, 21568-1 #### [facility] ([id number]) [address] [place] [address] 31066 W.B.CELLS 10 /hpf High 0-5 [facility] Comment on above: Performed By: #### C VIRGILIO, MARIO, 03990-2, 31875-3, 54493-5 #### [facility] ([id number]) [address] [place] [address] [id number] URINE SODIUM,RANDOMon 2023 Sodium (U) [Moles/Vol] 86 mmol/L [facility] Comment on above: Performed By: #### C VIRGILIO, MARIO, , 96477-5, 87161-8 #### [facility] ([id number]) [address] [place] [address] [id number] Urinalysison 10-15-2023 Bilirubin Ql (U) Negative Negative^N [...] [Mass/Vol] mg/dL Abnormal Negat marva^N egative mg/dL [facility] RBC Auto (Urine sed) [#/Area] 30 High [facility] Specific gravity Refractometry automated (U) [Rel density] 1.025 1.003 - 1.035 [facility] Turbidity Ql (U) CLEAR CLEAR^NUNU R [facility] Urobilinogen Qn (U) 0.2 NINF [facility] WBC Auto (Urine sed) [#/Area] 10 High [facility] Urine Creatinine,randomon Creatinine (U) [Mass/Vol] 102.61 mg/dL [facility] VITAMIN B12on 10-15-2023 Cobalamin (Vitamin B12) [Mass/Vol] 159 pg/mL Low 180-914 [facility] Comment on above: Performed By: #### C VIRGILIO BMP, 74219-9, 45568-0, 19553-7 #### [facility] ([id number]) [address] [place] [address] 26940 Vitamin B12on 10-15-2023 Cobalamin (Vitamin B12) [Mass/Vol] 159 pg/mL Low 180 - 914 pg/mL [facility] BASIC METABOLIC PANLon 10-13 Anion gap [Moles/Vol] 5 mmol/L Normal 5-15 [facility] Comment on above: Performed By: #### C VIRGILIO BMP, , 15352-2, 42385-4 #### [facility] ([id number]) [address] [place] [address] 14794 Calcium [Mass/Vol] 8.1 mg/dL Low 8.5-10.5 [facility] Comment on above: Performed By: #### C BCA BMP, , 08527-1, 78013-8 #### [facility] ([id number]) [address] [place] [address] 53560 Chloride [Moles/Vol] 107 mmol/L Normal 98-109 [facility] Comment on above: Performed By: #### C VIRGILIO, BMP, , 01379-1, 74409-6 #### [facility] ([id number]) [address] [place] [address] 27931 CO2 [Moles/Vol] 27 mmol/L Normal 22-32 [facility] Comment on above: Performed By: #### C BCA, BMP, , 70027-5, 01587-1 #### [facility] ([id number]) [address] [place] [address] 66645 Creatinine [Mass/Vol] 2.56 mg/dL High 0.40-1.00 [facility] Comment on above: Result Comment: METH OD TRACEABLE TO IDMS STANDARD Performed By: #### C VIRGILIO, BMP, , 92313-4, 90834-4 #### [facility] ([id number]) [address] [place] [address] 80020 GFR/1.73 sq M.predicted among non-blacks MDRD (S/P/Bld) [Vol rate/Area] 21 mL/min/{1.73_m2} Low >59 [facility] Comment on above: Result Comment: Reported eGFR is based on the CKD-EPI 2020 equation that does not use a race coefficient. Performed By: #### C VIRGILIO, BMP, , 97935-7, 72336-6 #### [facility] ([id number]) [address] [place] [address] 29713 Glucose [Mass/Vol] 95 mg/dL Normal 65-99 [facility] Comment on above: Performed By: #### C BCA, BMP, , 29887-2, 39051-1 #### [facility] ([id number]) [address] [place] [address] 10100 Potassium [Moles/Vol] 3.1 mmol/L Low 3.5-5.0 [facility] Comment on above: Performed By: #### C BCA, BMP, 19495-3, 96821-3, 40256-1 #### [facility] ([id number]) [address] [place] [address] 91832 Sodium [Moles/Vol] 139 mmol/L Normal 134-146 [facility] Comment on above: Performed By: #### C BCA, BMP, 10309-1, 61835-8, 17238-0 #### [facility] ([id number]) [address] [place] [address] 78182 Urea nitrogen [Mass/Vol] 19 mg/dL Normal 5-23 [facility] Comment on above: Performed By: #### C BCA, BMP, 20400-8, 15711-8, 00407-1 #### [facility] ([id number]) [address] [place] [address] 30818 Basic Metabolic Panelon - Anion gap [Moles/Vol] 5 mmol/L 5 - 15 mmol/L [facility] Calcium [Mass/Vol] 8.1 mg/dL Low 8.5 - 10. 5 mg/dL [facility] Chloride [Moles/Vol] 107 mmol/L 98 - 10 9 mmol/L [facility] CO2 [Moles/Vol] 27 mmol/L 22 - 32 mmol/L [facility] Creatinine [Mass/Vol] 2.56 mg/dL High 0.40 - 1.00 mg/dL [facility] Comment on above: METHOD TRACEABLE TO IDMS STANDARD eGFR (CKD-EPI)non-race dependent 21 Low - PINF [facility] Comment on above: Reported eGFR is based on the CKD-EPI 2020 equation that does not use a race coefficient. Glucose [Mass/Vol] 95 mg/dL 65 - 99 mg/dL [facility] Interpretation and review of laboratory results Abnormal [facility] Potassium [Moles/Vol] 3.1 mmol/L Low 3.5 - 5.0 mmol/L [facility] Sodium [Moles/Vol] 139 mmol/L 134 - 146 mmol/L [facility] Urea nitrogen [Mass/Vol] 19 mg/dL 5 - 23 mg/dL [facility] CBC AND AUTO DIFFon 10-14-19 24 ABSOLUTE BASOPHIL 0.1 X10E9/L Normal 0.0-0.2 [facility] Comment on above: Performed By: #### C VIRGILIO, BMP, , 39582-7, 67998-3 #### [facility] ([id number]) [address] [place] [address] 61649 ABSOLUTE NEUTROPHIL 5.7 X10E9/L Normal 1.5-6.6 [facility] Comment on above: Performed By: #### Shahla POOLE, BMP, , 77818-2, 12618-2 #### [facility] ([id number]) [address] [place] [address] 57685 Basophils/100 WBC (Bld) 0.7 % Normal [facility] Comment on above: Performed By: #### C VIRGILIO, BMP, , 84738-3, 23103-5 #### [facility] ([id number]) [address] [place] [address] 55220 Eosinophils (Bld) [#/Vol] 0.5 10*3/uL High 0.0-0.4 [facility] Comment on above: Performed By: #### Shahla POOLE, BMP, , 45524-4, 94293-3 #### [facility] ([id number]) [address] [place] [address] 00642 Eosinophils/100 WBC (Bld) 4.9 % Normal [facility] Comment on above: Performed By: #### Shahla BCA, BMP, , 03286-2, 00030-3 #### [facility] ([id number]) [address] [place] [address] 18083 Erythrocyte distribution width (RBC) [Ratio] 14.6 % Normal 11.5-15.0 [facility] Comment on above: Performed By: #### C VIRGILIO, BMP, 66819-6, 60062-3, 10972-2 #### [facility] ([id number]) [address] [place] [address] 76387 Hematocrit (Bld) [Volume fraction] 33.2 % Low 35-47 [facility] Comment on above: Performed By: #### C BCA, BMP, 80766-0, 32415-4, 55522-0 #### [facility] ([id number]) [address] [place] [address] 39334 Hemoglobin (Bld) [Mass/Vol] 10.9 g/dL Low 11.7-15.5 [facility] Comment on above: Performed By: #### Shahla POOLE, BMP, , 37345-2, 83248-6 #### [facility] ([id number]) [address] [place] [address] 66045 Lymphocytes (Bld) [#/Vol] 2.8 10*3/uL Normal 1.0-3.5 [facility] Comment on above: Performed By: #### C BCA, BMP, , 47397-2, 06655-0 #### [facility] ([id number]) [address] [place] [address] 38250 Lymphocytes/100 WBC (Bld) 28.7 % Normal [facility] Comment on above: Performed By: #### C BCA, BMP, 58487-1, 61603-3, 33718-4 #### [facility] ([id number]) [address] [place] [address] 77879 MCH (RBC) [Entitic mass] 27.7 pg Normal 27-34 [facility] Comment on above: Performed By: #### C BCA, BMP, 07506-0, 03355-3, 34560-9 #### [facility] ([id number]) [address] [place] [address] 68026 MCHC (RBC) [Mass/Vol] 32.9 g/dL Normal 32-36 [facility] Comment on above: Performed By: #### Shahla POOLE, MARIO, , 42923-1, 56270-0 #### [facility] ([id number]) [address] [place] [address] 01214 MCV (RBC) [Entitic vol] 84 fL Normal 80-100 [facility] Comment on above: Performed By: #### Shahla POOLE, MARIO, , 50370-1, 95482-6 #### [facility] ([id number]) [address] [place] [address] 39483 Monocytes (Bld) [#/Vol] 0.8 10*3/uL Normal 0-0.9 [facility] Comment on above: Performed By: #### Shahla POOLE, MARIO, , 85903-5, 75394-0 #### [facility] ([id number]) [address] [place] [address] 39676 Monocytes/100 WBC (Bld) 8.1 % Normal [facility] Comment on above: Performed By: #### Shahla POOLE, BMP, , 95595-4, 41283-4 #### [facility] ([id number]) [address] [place] [address] 62508 Neutrophils/100 WBC (Bld) 57.6 % Normal [facility] Comment on above: Performed By: #### Shahla POOLE, BMP, , 10400-5, 87460-0 #### [facility] ([id number]) [address] [place] [address] 08740 Platelet mean volume (Bld) [Entitic vol] 8.9 fL Normal 7-12 [facility] Comment on above: Performed By: #### Shahla POOLE, MARIO, 47605-4, 65687-9, 96360-7 #### [facility] ([id number]) [address] [place] [address] 94450 Platelets (Bld) [#/Vol] 319 10*3/uL Normal 150-450 [facility] Comment on above: Performed By: #### Shahla POOLE, MARIO, , 62481-5, 82409-4 #### [facility] ([id number]) [address] [place] [address] 36148 RBC COUNT 3.95 X10E12/L Normal 3.80-5.20 [facility] Comment on above: Performed By: #### Shahla POOLE, MARIO, , 32630-0, 61800-5 #### [facility] ([id number]) [address] [place] [address] 55637 WBC (Bld) [#/Vol] 9.9 10*3/uL Normal 4.0-11.0 [facility] Comment on above: Performed By: #### Shahla POOLE, MARIO, , 83314-4, 79383-4 #### [facility] ([id number]) [address] [place] [address] 29617 CBC auto differentialon 09-23 Basophils (Bld) [#/Vol] [...] 10.9 g/dL Low 11.7 - 15.5 g/dL [facility] Interpretation and review of laboratory results Abnormal [facility] Lymphocytes (Bld) [#/Vol] 2.8 10*3/uL [facility] Lymphocytes/100 WBC (Bld) 28.7 % [facility] MCH (RBC) [Entitic mass] 27.7 pg 27 - 34 [facility] MCHC (RBC) [Mass/Vol] 32.9 g/dL 32 - 3 6 g/dL [facility] MCV (RBC) [Entitic vol] 84 fL 80 - 100 fL [facility] Monocytes (Bld) [#/Vol] 0.8 10*3/uL [facility] Monocytes/100 WBC (Bld) 8.1 % [facility] Neutrophils (Bld) [#/Vol] 5.7 10*3/uL [facility] Neutrophils/100 WBC (Bld) 57.6 % [facility] Platelet mean volume (Bld) [Entitic vol] 8.9 fL 7 - 12 fL [facility] Platelets (Bld) [#/Vol] 319 10*3/uL [facility] RBC (Bld) [#/Vol] 3.95 10*6/uL [facility] WBC corrected for nucl RBC Auto (Bld) [#/Vol] 9.9 [facility] ECG 12 leadOrdered By: Mauricio Huber on 10-14-2023 [facility] MAGNESIUMon 10-14-2023 Magnesium [Mass/Vol] 1.8 mg/dL Normal 1.8-2.6 [facility] Comment on above: Performed By: #### C BCA, BMP, 55451-0, 16787-8, 02746-6 #### [facility] ([id number]) [address] [place] [address] Magnesiumon 10-14-2023 Magnesium [Mass/Vol] 1.8 mg/dL 1.8 - 2 .6 mg/dL [facility] Natriuretic peptide B [Mass/ Vol]on 10-14-2023 Interpretation and review of laboratory results Abnormal [facility] Natriuretic peptide B (Bld) [Mass/Vol] 427 pg/mL High NINF - 100.0 pg/mL [facility] Natriuretic peptide B (Bld) [Mass/Vol] 427 pg/mL High <100.0 [facility] Comment on above: Performed By: #### C BCA, BMP, 26175-5, 07248-8, 18438-7 #### [facility] ([id number]) [address] [place] [address], [place] [address] No Panel Informationon 10-13 [facility] Troponin I, High Sensitivity on 10-14-2023 Troponin I.cardiac High sensitivity method [Mass/Vol] 39 ng/L High NINF - 16 ng/L [facility] Comment on above: Elevations of hs-Troponin may be due to causes other than myocardial ischemia. Recommend serial hs-Troponin testing be performed. For the initial evaluation and management of chest pain patients, refer to the algorithms linked below. Emergency Patient: [email or web address] Inpatient: [email or web address]&uh=acaea Troponin I.cardiac High sens itivity method [Mass/Vol]on 10-14-2023 1 HOUR TROP I, HIGH SENSITIVITY 39 ng/L High <16 [facility] Comment on above: Result Comment: Elevations of hs-Troponin may be due to causes other than myocardial ischemia. Recommend serial hs-Troponin testing be performed. For the initial evaluation and management of chest pain patients, refer to the algorithms linked below. Emergency Patient: [email or web address] Inpatient: [email or web address] 5&uh=acaea Performed By: #### 8 9579-7 #### [facility] ([id number]) [address] [place] [address] 89554 Interpretation and review of laboratory results Abnormal [facility] TROPONIN I, HIGH SENSITIVITY 39 ng/L High <16 [facility] Comment on above: Result Comment: Elevations of hs-Troponin may be due to causes other than myocardial ischemia. Recommend serial hs-Troponin testing be performed. For the initial evaluation and management of chest pain patients, refer to the algorithms linked below. Emergency Patient: [email or web address]&uh=acaea Inpatient: [email or web address] 5&uh=acaea Performed By: #### C BCA, BMP, 85886-2, 38829-5, 05832-6 #### [facility] ([id number]) [address] [place] [address], [place] [address] XR CHEST 1 VWon 10-14-2023 XR CHEST 1 VW XR CHEST 1 VW Single view chest History: Difficulty breathing, shortness of breath Comparison: 01/01/2021 Impression: 1. Low lung volumes and hypoventilatory change, Central pulmonary vascular congestion without overt pulmonary edema. No sizable pleural effusion, no definite pneumothorax. 2. Borderline cardiomegaly. Finalized by Naren Morris MD on 10/14/2023 11:39 PM Normal [facility] XR Chest Single viewon 10-13 Single [...] Naren Morris MD on 10/14/2023 11:39 PM [facility] Radiology Study observation (narrative) [employer] XR Chest Single viewOrdered By: Naren Morris on 10-14-2023 [facility] Work Phone: ANTIBODY ID PANELon 01-03-20 ANTIBODY ID PANEL Antibody ID Anti-Jka Normal [facility] Comment on above: Performed By: #### C TABBY, HSTROPN #### [facility] [address] [place] [address] Dr. Steve Valentin CBC AUTO DIFFon 12-31-2021 BASO # 0.0 103/ul Normal 0.0-0.1 [facility] Comment on above: Performed By: #### C TABBY, HSTROPN #### [facility] [address] [place] [address] Dr. Steve Valentin Basophils/100 WBC (Bld) 0.9 % Normal 0.2-2.0 [facility] Comment on above: Performed By: #### C TABBY, HSTROPN #### [facility] [address] [place] [address] Dr. Steve Valentin EO # 0.2 103/ul Normal 0.0-0.7 [facility] Comment on above: Performed By: #### C TABBY, HSTROPN #### [facility] [address] [place] [address] Dr. Steve Valentin Eosinophils/100 WBC (Bld) 4.3 % Normal 0.9-7.0 [facility] Comment on above: Performed By: #### C TABBY, HSTROPN #### [facility] [address] [address] [address] Steve Valentin Erythrocyte distribution width (RBC) [Ratio] 14.1 % Normal 11.0-15.0 [facility] Comment on above: Performed By: #### C MP, HSTROPN #### [facility] [address] [place] [address] Dr. Steve Valentin Hematocrit (Bld) [Volume fraction] 34.6 % Critically low 36.0-48.0 [facility] Comment on above: Performed By: #### C MP, HSTROPN #### [facility] [address] [place] [address] Dr. Steve Valentin Hemoglobin (Bld) [Mass/Vol] 10.9 g/dL Critically low 12.0-16.0 [facility] Comment on above: Performed By: #### C MP, HSTROPN #### [facility] [address] [place] [address] Dr. Steve Valentin IG # 0.01 10e3/ul Normal 0.00-0.03 [facility] Comment on above: Performed By: #### C MP, HSTROPN #### [facility] [address] [place] [address] Dr. Steve Valentin IG % 0.3 % Normal 0.0-0.5 [facility] Comment on above: Performed By: #### C MP, HSTROPN #### [facility] [address] [place] [address] Dr. Steve Valentin LYMPH # 0.9 103/ul Critically low 1.2-3.8 [facility] Comment on above: Performed By: #### C MP, HSTROPN #### [facility] [address] [place] [address] Dr. Steve Valentin Lymphocytes/100 WBC (Bld) 26.3 % Normal 20.5-60.0 [facility] Comment on above: Performed By: #### C MP, HSTROPN #### [facility] [address] [place] [address] Dr. Steve Valentin MANUAL DIFF REQ NO Normal [facility] Comment on above: Performed By: #### C MP, HSTROPN #### [facility] [address] [place] [address] Dr. Steve Valentin MCH (RBC) [Entitic mass] 26.7 pg Normal 26.7-34.0 [facility] Comment on above: Performed By: #### C MP, HSTROPN #### [facility] [address] [place] [address] Dr. Steve Valentin MCHC (RBC) [Mass/Vol] 31.5 g/dL Normal 29.9-35.2 [facility] Comment on above: Performed By: #### C MP, HSTROPN #### [facility] [address] [place] [address] Dr. Steve Valentin MCV (RBC) [Entitic vol] 84.8 fL Normal 81.0-99.0 [facility] Comment on above: Performed By: #### C MP, HSTROPN #### [facility] [address] [place] [address] Dr. Steve Valentin MONO # 0.3 103/ul Normal 0.3-0.8 [facility] Comment on above: Performed By: #### C MP, HSTROPN #### [facility] [address] [place] [address] Dr. Steve Valentin Monocytes/100 WBC (Bld) 9.5 % Normal 1.7-12.0 [facility] Comment on above: Performed By: #### C MP, HSTROPN #### [facility] [address] [place] [address] Dr. Steve Valentin NEUT # 2.0 103/ul Normal 1.4-6.5 [facility] Comment on above: Performed By: #### C MP, HSTROPN #### [facility] [address] [place] [address] Dr. Steve Valentni Neutrophils/100 WBC (Bld) 58.7 % Normal 43.0-75.0 [facility] Comment on above: Performed By: #### C MP, HSTROPN #### [facility] [address] [address] [address] Steve Valentin Platelet mean volume (Bld) [Entitic vol] 10.5 fL Normal 9.5-13.5 [facility] Comment on above: Performed By: #### C MP, HSTROPN #### [facility] [address] [address] [address] Steve Valentin PLT 164 103/ul Normal 150-450 [facility] Comment on above: Performed By: #### C MP, HSTROPN #### [facility] [address] [place] [address] Dr. Steve Valentin RBC 4.08 106/ul Critically low 4.20-5.40 [facility] Comment on above: Performed By: #### C MP, HSTROPN #### [facility] [address] [place] [address] Dr. Steve Valentin WBC 3.5 103/ul Critically low 4.0-11.0 [facility] Comment on above: Performed By: #### C MP, HSTROPN #### [facility] [address] [place] [address] Dr. Steve Valentin PROF 14(COMP METB)on 022 Albumin [Mass/Vol] 3.0 g/dL Critically low 3.4-5.0 [facility] Comment on above: Performed By: #### C MP #### [facility] [address] [place] [address] Dr. Steve Valentin Albumin/Globulin [Mass ratio] 1.0 {ratio} Normal [facility] Comment on above: Performed By: #### C MP #### [facility] [address] [place] [address] Dr. Steve Valentin ALP [Catalytic activity/Vol] 56 U/L Normal 46-116 [facility] Comment on above: Performed By: #### C MP #### [facility] [address] [place] [address] Dr. Steve Valentin ALT [Catalytic activity/Vol] 20 U/L Normal 14-59 [facility] Comment on above: Performed By: #### C MP #### [facility] [address] [address] [address] Steve Valentin Anion gap [Moles/Vol] 9.3 mmol/L Normal [facility] Comment on above: Performed By: #### C MP #### [facility] [address] [address] [address] Steve Valentin AST [Catalytic activity/Vol] 17 U/L Normal 15-37 [facility] Comment on above: Performed By: #### C MP #### [facility] [address] [address] [address] Steve Valentin Bilirubin [Mass/Vol] 0.2 mg/dL Normal 0.2-1.0 [facility] Comment on above: Performed By: #### C MP #### [facility] [address] [address] [address] Steve Valentin Calcium [Mass/Vol] 8.8 mg/dL Normal 8.5-10.1 [facility] Comment on above: Performed By: #### C MP #### [facility] [address] [address] [address] Steve Valentin Chloride [Moles/Vol] 106 mmol/L Normal 98-107 [facility] Comment on above: Performed By: #### C MP #### [facility] [address] [address] [address] Steve Valentin CO2 [Moles/Vol] 26.5 mmol/L Normal 21.0-32.0 [facility] Comment on above: Performed By: #### C MP #### [facility] [address] [address] [address] Steve Valentin Creatinine [Mass/Vol] 0.92 mg/dL Normal 0.55-1.02 [facility] Comment on above: Performed By: #### C MP #### [facility] [address] [place] [address] Dr. Steve Valentin EGFR-AF ICELANDIC >60 Normal >=60 [facility] Comment on above: Performed By: #### C MP #### [facility] [address] [address] [address] Steve Valentin EGFR-NON AF ICELANDIC >60 Normal >=60 [facility] Comment on above: Performed By: #### C MP #### [facility] [address] [address] [address] Steve Valentin Globulin (S) [Mass/Vol] 2.9 g/dL Normal [facility] Comment on above: Performed By: #### C MP #### [facility] [address] [address] [address] Steve Valentin Glucose [Mass/Vol] 97 mg/dL Normal 74-106 [facility] Comment on above: Performed By: #### C MP #### [facility] [address] [address] [address] Steve Valentin Potassium [Moles/Vol] 3.8 mmol/L Normal 3.5-5.1 [facility] Comment on above: Performed By: #### C MP #### [facility] [address] [address] [address] Steve Valentin Protein [Mass/Vol] 5.9 g/dL Critically low 6.4-8.2 [facility] Comment on above: Performed By: #### C MP #### [facility] [address] [address] [address] Steve Valentin Sodium [Moles/Vol] 138 mmol/L Normal 136-145 [facility] Comment on above: Performed By: #### C MP #### [facility] [address] [address] [address] Steve Valentin Urea nitrogen [Mass/Vol] 5.0 mg/dL Critically low 7.0-18. 0 [facility] Comment on above: Performed By: #### C MP #### [facility] [address] [address] [address] Steve Valentin Urea nitrogen/Creatinine [Mass ratio] 5.4 mg/mg Normal [facility] Comment on above: Performed By: #### C MP #### [facility] [address] [address] [address] Steve Valentin CBC AUTO DIFFon 12-30-2021 BASO # 0.0 103/ul Normal 0.0-0.1 [facility] Comment on above: Performed By: #### C BC #### [facility] [address] [place] [address] Dr. Steve Valentin Basophils/100 WBC (Bld) 0.5 % Normal 0.2-2.0 [facility] Comment on above: Performed By: #### C BC #### [facility] [address] [place] [address] Dr. Steve Valentin EO # 0.1 103/ul Normal 0.0-0.7 [facility] Comment on above: Performed By: #### C BC #### [facility] [address] [place] [address] Dr. Steve Valentin Eosinophils/100 WBC (Bld) 3.2 % Normal 0.9-7.0 [facility] Comment on above: Performed By: #### C BC #### [facility] [address] [place] [address] Dr. Steve Valentin Erythrocyte distribution width (RBC) [Ratio] 14.0 % Normal 11.0-15.0 [facility] Comment on above: Performed By: #### C BC #### [facility] [address] [place] [address] Dr. Steve Valentin Hematocrit (Bld) [Volume fraction] 38.3 % Normal 36.0-48.0 [facility] Comment on above: Performed By: #### C BC #### [facility] [address] [place] [address] Dr. Steve Valentin Hemoglobin (Bld) [Mass/Vol] 11.7 g/dL Critically low 12.0-16.0 [facility] Comment on above: Performed By: #### C BC #### [facility] [address] [place] [address] Dr. Steve Valentin IG # 0.01 10e3/ul Normal 0.00-0.03 [facility] Comment on above: Performed By: #### C BC #### [facility] [address] [place] [address] Dr. Steve Valentin IG % 0.2 % Normal 0.0-0.5 [facility] Comment on above: Performed By: #### C BC #### [facility] [address] [place] [address] Dr. Steve Vlaentin LYMPH # 1.3 103/ul Normal 1.2-3.8 [facility] Comment on above: Performed By: #### C BC #### [facility] [address] [place] [address] Dr. Steve Valentin Lymphocytes/100 WBC (Bld) 29.6 % Normal 20.5-60.0 [facility] Comment on above: Performed By: #### C BC #### [facility] [address] [place] [address] Dr. Steve Valentin MANUAL DIFF REQ NO Normal [facility] Comment on above: Performed By: #### C BC #### [facility] [address] [place] [address] Dr. Steve Valentin MCH (RBC) [Entitic mass] 26.0 pg Critically low 26.7-34 .0 [facility] Comment on above: Performed By: #### C BC #### [facility] [address] [place] [address] Dr. Steve Valentin MCHC (RBC) [Mass/Vol] 30.5 g/dL Normal 29.9-35.2 [facility] Comment on above: Performed By: #### C BC #### [facility] [address] [place] [address] Dr. Steve Valentin MCV (RBC) [Entitic vol] 85.1 fL Normal 81.0-99.0 [facility] Comment on above: Performed By: #### C BC #### [facility] [address] [place] [address] Dr. Steve Valentin MONO # 0.5 103/ul Normal 0.3-0.8 [facility] Comment on above: Performed By: #### C BC #### [facility] [address] [place] [address] Dr. Steve Valentin Monocytes/100 WBC (Bld) 10.6 % Normal 1.7-12.0 [facility] Comment on above: Performed By: #### C BC #### [facility] [address] [place] [address] Dr. Steve Valentin NEUT # 2.4 103/ul Normal 1.4-6.5 [facility] Comment on above: Performed By: #### C BC #### [facility] [address] [place] [address] Dr. Steve Valentin Neutrophils/100 WBC (Bld) 55.9 % Normal 43.0-75.0 [facility] Comment on above: Performed By: #### C BC #### [facility] [address] [place] [address] Dr. Steve Valentin Platelet mean volume (Bld) [Entitic vol] 10.0 fL Normal 9.5-13.5 [facility] Comment on above: Performed By: #### C BC #### [facility] [address] [place] [address] Dr. Steve Valentin PLT 169 103/ul Normal 150-450 [facility] Comment on above: Performed By: #### C BC #### [facility] [address] [place] [address] Dr. Steve Valentin RBC 4.50 106/ul Normal 4.20-5.40 [facility] Comment on above: Performed By: #### C BC #### [facility] [address] [place] [address] Dr. Steve Valentin WBC 4.4 103/ul Normal 4.0-11.0 [facility] Comment on above: Performed By: #### C BC #### [facility] [address] [place] [address] Dr. Steve Valentin BASO # 0.0 103/ul Normal 0.0-0.1 [facility] Comment on above: Performed By: #### C BC #### [facility] [address] [place] [address] Dr. Steve Valentin Basophils/100 WBC (Bld) 0.4 % Normal 0.2-2.0 [facility] Comment on above: Performed By: #### C BC #### [facility] [address] [place] [address] Dr. Steve Valentin EO # 0.2 103/ul Normal 0.0-0.7 [facility] Comment on above: Performed By: #### C BC #### [facility] [address] [place] [address] Dr. Steve Valentin Eosinophils/100 WBC (Bld) 2.6 % Normal 0.9-7.0 [facility] Comment on above: Performed By: #### C BC #### [facility] [address] [place] [address] Dr. Steve Valentin Erythrocyte distribution width (RBC) [Ratio] 13.9 % Normal 11.0-15.0 [facility] Comment on above: Performed By: #### C BC #### [facility] [address] [place] [address] Dr. Steve Valentin Hematocrit (Bld) [Volume fraction] 39.1 % Normal 36.0-48.0 [facility] Comment on above: Performed By: #### C BC #### [facility] [address] [place] [address] Dr. Steve Valentin Hemoglobin (Bld) [Mass/Vol] 12.3 g/dL Normal 12.0-16.0 [facility] Comment on above: Performed By: #### C BC #### [facility] [address] [place] [address] Dr. Steve Valentin IG # 0.02 10e3/ul Normal 0.00-0.03 [facility] Comment on above: Performed By: #### C BC #### [facility] [address] [place] [address] Dr. Steve Valentin IG % 0.4 % Normal 0.0-0.5 [facility] Comment on above: Performed By: #### C BC #### [facility] [address] [place] [address] Dr. Steve Valentin LYMPH # 1.1 103/ul Critically low 1.2-3.8 [facility] Comment on above: Performed By: #### C BC #### [facility] [address] [place] [address] Dr. Steve Valentin Lymphocytes/100 WBC (Bld) 18.9 % Critically low 20.5-60.0 [facility] Comment on above: Performed By: #### C BC #### [facility] [address] [place] [address] Dr. Steve Valentin MANUAL DIFF REQ NO Normal [facility] Comment on above: Performed By: #### C BC #### [facility] [address] [place] [address] Dr. Steve Valentin MCH (RBC) [Entitic mass] 26.3 pg Critically low 26.7-34 .0 [facility] Comment on above: Performed By: #### C BC #### [facility] [address] [place] [address] Dr. Steve Valentin MCHC (RBC) [Mass/Vol] 31.5 g/dL Normal 29.9-35.2 [facility] Comment on above: Performed By: #### C BC #### [facility] [address] [place] [address] Dr. Steve Valentin MCV (RBC) [Entitic vol] 83.7 fL Normal 81.0-99.0 [facility] Comment on above: Performed By: #### C BC #### [facility] [address] [place] [address] Dr. Steve Valentin MONO # 0.6 103/ul Normal 0.3-0.8 [facility] Comment on above: Performed By: #### C BC #### [facility] [address] [place] [address] Dr. Steve Valentin Monocytes/100 WBC (Bld) 10.0 % Normal 1.7-12.0 [facility] Comment on above: Performed By: #### C BC #### [facility] [address] [place] [address] Dr. Steve Valentin NEUT # 3.9 103/ul Normal 1.4-6.5 [facility] Comment on above: Performed By: #### C BC #### [facility] [address] [place] [address] Dr. Steve Valentin Neutrophils/100 WBC (Bld) 67.7 % Normal 43.0-75.0 [facility] Comment on above: Performed By: #### C BC #### [facility] [address] [place] [address] Dr. Steve Valentin Platelet mean volume (Bld) [Entitic vol] 10.0 fL Normal 9.5-13.5 [facility] Comment on above: Performed By: #### C BC #### [facility] [address] [place] [address] Dr. Steve Valentin PLT 200 103/ul Normal 150-450 [facility] Comment on above: Performed By: #### C BC #### [facility] [address] [place] [address] Dr. Steve Valentin RBC 4.67 106/ul Normal 4.20-5.40 [facility] Comment on above: Performed By: #### C BC #### [facility] [address] [place] [address] Dr. Steve Valentin WBC 5.7 103/ul Normal 4.0-11.0 [facility] Comment on above: Performed By: #### C BC #### [facility] [address] [place] [address] ABD/PELV W CONon [...] LO COSTA Date: 2021-12-30 08:30 Normal [facility] SARS-CoV-2 (COVID-19) RNA RADHA+probe Ql (Unsp spec) Not detected Normal NOT DETECTED [facility] Comment on above: Result Comment: When diagnostic [...] for this test is supported by the [employer] and Human Service's declaration that [...] used). Performed By: #### C VDTBH #### [facility] [address] [place] [address] Dr. Steve Valentin DIRECT COOMBSon 12-30-2021 DIRECT AMARJIT Negative Normal [facility] Comment on above: Performed By: #### C MP, HSTROPN #### [facility] [address] [address] [address] Steve Valentin LACTATE/LACTIC ACIDon 2021 Lactate [Moles/Vol] 1.2 mmol/L Normal 0.4-1.9 [facility] Comment on above: Performed By: #### L ACT #### [facility] [address] [address] [address] Steve Valentin PROF 14(COMP METB)on 022 Albumin [Mass/Vol] 3.4 g/dL Normal 3.4-5.0 [facility] Comment on above: Performed By: #### C MP, HSTROPN #### [facility] [address] [address] [address] Steve Valentin Albumin/Globulin [Mass ratio] 1.1 {ratio} Normal [facility] Comment on above: Performed By: #### C MP, HSTROPN #### [facility] [address] [address] [address] Steve Valentin ALP [Catalytic activity/Vol] 66 U/L Normal 46-116 [facility] Comment on above: Performed By: #### C MP, HSTROPN #### [facility] [address] [address] [address] Steve Valentin ALT [Catalytic activity/Vol] 18 U/L Normal 14-59 [facility] Comment on above: Performed By: #### C MP, HSTROPN #### [facility] [address] [address] [address] Steve Valentin Anion gap [Moles/Vol] 9.1 mmol/L Normal [facility] Comment on above: Performed By: #### C MP, HSTROPN #### [facility] [address] [address] [address] Steve Valentin AST [Catalytic activity/Vol] 14 U/L Critically low 15-37 [facility] Comment on above: Performed By: #### C MP, HSTROPN #### [facility] [address] [address] [address] Steve Valentin Bilirubin [Mass/Vol] 0.3 mg/dL Normal 0.2-1.0 [facility] Comment on above: Performed By: #### C MP, HSTROPN #### [facility] [address] [address] [address] Steve Valentin Calcium [Mass/Vol] 9.2 mg/dL Normal 8.5-10.1 [facility] Comment on above: Performed By: #### C MP, HSTROPN #### [facility] [address] [place] [address] Dr. Steve Valentin Chloride [Moles/Vol] 104 mmol/L Normal 98-107 [facility] Comment on above: Performed By: #### C MP, HSTROPN #### [facility] [address] [place] [address] Dr. Steve Valentin CO2 [Moles/Vol] 25.5 mmol/L Normal 21.0-32.0 [facility] Comment on above: Performed By: #### C MP, HSTROPN #### [facility] [address] [place] [address] Dr. Steve Valentin Creatinine [Mass/Vol] 0.94 mg/dL Normal 0.55-1.02 [facility] Comment on above: Performed By: #### C MP, HSTROPN #### [facility] [address] [place] [address] Dr. Steve Valentin EGFR-AF ICELANDIC >60 Normal >=60 [facility] Comment on above: Performed By: #### C MP, HSTROPN #### [facility] [address] [place] [address] Dr. Steve Valentin EGFR-NON AF ICELANDIC >60 Normal >=60 [facility] Comment on above: Performed By: #### C MP, HSTROPN #### [facility] [address] [place] [address] Dr. Steve Valentin Globulin (S) [Mass/Vol] 3.1 g/dL Normal [facility] Comment on above: Performed By: #### C MP, HSTROPN #### [facility] [address] [place] [address] Dr. Steve Valentin Glucose [Mass/Vol] 98 mg/dL Normal 74-106 [facility] Comment on above: Performed By: #### C MP, HSTROPN #### [facility] [address] [place] [address] Dr. Steve Valentin Potassium [Moles/Vol] 3.6 mmol/L Normal 3.5-5.1 [facility] Comment on above: Performed By: #### C MP, HSTROPN #### [facility] [address] [address] [address] Steve Valentin Protein [Mass/Vol] 6.5 g/dL Normal 6.4-8.2 [facility] Comment on above: Performed By: #### C TABBY, HSTROPN #### [facility] [address] [place] [address] Dr. Steve Valentin Sodium [Moles/Vol] 135 mmol/L Critically low 136-145 [facility] Comment on above: Performed By: #### C MP, HSTROPN #### [facility] [address] [place] [address] Dr. Steve Valentin Urea nitrogen [Mass/Vol] 11.0 mg/dL Normal 7.0-18.0 [facility] Comment on above: Performed By: #### C TABBY, HSTROPN #### [facility] [address] [place] [address] Dr. Steve Valentin Urea nitrogen/Creatinine [Mass ratio] 11.7 mg/mg Normal [facility] Comment on above: Performed By: #### C MP, HSTROPN #### [facility] [address] [place] [address] Dr. Steve Valentin TROPONIN, HIGH SENSITIVITYon 12-30-2021 HSTROP 8.6 pg/mL Normal 4.0-51.3 [facility] Comment on above: Result Comment: CUT- OFF POINTS HAVE BEEN ESTABLISHED BASED ON THE FOURTH UNIVERSAL DEFINITIONS OF MYOCARDIAL INFARCTION. THE UPPER REFERENCE LIMIT (URL) OF TROPONIN, DEFINED THE 99TH PERCENTILE OF cTnI DISTRIBUTION IN A REFERENCE POPULATION, HAS BEEN CONFIRMED THE DECISION THRESHOLD FOR ID DIAGNOSIS. Performed By: #### C MP, HSTROPN #### [facility] [address], [place] [address] Dr. Steve Valentin TYPE AND SCREENon 12-30-2021 TYPE AND SCREEN Positive Normal [facility] Comment on above: Performed By: #### T NS #### [facility] [address] [place], [place] [address] Dr. Steve Valentin XR CERVICAL SPINE (2-3 [...] Yaritza Pinedo MD 01/20/[address] [facility] Multilevel degenerative changes [place], [place] EXAMINATION: XRAY VIEWS OF THE CERVICAL [...] dislocation or significant prevertebral soft tissue swelling [place], [place] Tarki, M[employer] Incoming Radiant Results From simfye/Pacs - 01/20/2020 11:34 AM EDT EXAMINATION: XRAY [...] soft tissue swelling IMPRESSION: Multilevel degenerative changes [place] XR LUMBAR SPINE (2-3 VIEWS)o n [...] Mitesh Ho MD 01/20/[address] [facility] No acute abnormality lumbosacral spine. Degenerative findings most severe at L5-S1, with evidence DDD. [place] EXAMINATION: THREE XRAY VIEWS OF THE [...] Large amount of retained stool right colon. [place], [place] Tarik, M[facility] Incoming Radiant Results From [employer](TM) by [employer] - 01/20/2020 12:11 PM EDT EXAMINATION: THREE [...] most severe at L5-S1, with evidence DDD. [place], [place] Hematologyon 01-25-2018 Basophils Auto #/vol (Bld) 0.7 % Invalid Interpretation Code [facility] Basophils/100 WBC Auto (Bld) 0.0 K/uL Invalid Interpretation Code 0.0-0.1 [facility] Eosinophils/100 WBC Auto (Bld) 3.2 % Invalid Interpretation Code [facility] Erythrocyte distribution width Auto Ratio (RBC) 14.2 % Invalid Interpretation Code 10.8-14.8 [facility] Hematocrit Auto Volume Fraction (Bld) 34.70 % Invalid Interpretation Code 36.0-48.0 [facility] Hemoglobin S Solubility test Ql (Bld) 11.7 Invalid Interpretation Code 12.0-16.0 [facility] Lymphocytes/100 WBC Auto (Bld) 43.3 % Invalid Interpretation Code [facility] MCH Auto Entitic mass (RBC) 27.1 pg Invalid Interpretation Code 27.0-34.0 [facility] MCHC Auto mass conc (RBC) 33.7 g/dL Invalid Interpretation Code 31.0-36.0 [facility] MCV Auto Entitic volume (RBC) 80.5 fL Invalid Interpretation Code 80.-100. [facility] Monocytes/100 WBC Auto (Bld) 6.5 % Invalid Interpretation Code [facility] Neutrophils/100 WBC Auto (Bld) 46.1 % Invalid Interpretation Code [facility] Nucleated RBC/100 WBC Ratio (Bld) 0.1 10*3/uL Invalid Interpretation Code 0.1-0.4 [facility] Nucleated RBC/100 WBC Ratio (Bld) 1.9 10*3/uL Invalid Interpretation Code 0.8-5.2 [facility] Nucleated RBC/100 WBC Ratio (Bld) 0.3 10*3/uL Invalid Interpretation Code 0.1-0.9 [facility] Nucleated RBC/100 WBC Ratio (Bld) 2.0 10*3/uL Invalid Interpretation Code 1.3-9.1 [facility] RBC Auto #/vol (Bld) 4.310 10*6/uL Invalid Interpretation Code 4.00-5.50 [facility] Metabolic Panelon 01-25-2018 Albumin mass conc 4.10 g/dL Invalid Interpretation Code 3.5-5.2 [facility] ALP enzyme act/vol 50 U/L Invalid Interpretation Code 30-111 [facility] ALT enzyme act/vol 14 U/L Invalid Interpretation Code 5-40 [facility] Anion gap 3 molar conc 12 mmol/L Invalid Interpretation Code 10-19 [facility] AST enzyme act/vol 13 U/L Invalid Interpretation Code 9-40 [facility] Calcium mass conc 9.90 mg/dL Invalid Interpretation Code 8.5-10.5 [facility] Chloride molar conc 103 mmol/L Invalid Interpretation Code 95-107 [facility] CO2 molar conc 28 mmol/L Invalid Interpretation Code 19-31 [facility] Creatinine mass conc 1.0 mg/dL Invalid Interpretation Code 0.6-1.3 [facility] Glucose mass conc 89 mg/dL Invalid Interpretation Code 70-99 [facility] Potassium molar conc 4.30 mmol/L Invalid Interpretation Code 3.5-5.4 [facility] Protein mass conc 6.0 g/dL Invalid Interpretation Code 6.1-8.3 [facility] Protein mass conc 0.59 g/dL Invalid Interpretation Code <0.5 [facility] Sodium molar conc 143 mmol/L Invalid Interpretation Code 135-146 [facility] Urea nitrogen mass conc 14.0 mg/dL Invalid Interpretation Code 8-23 [facility] Otheron 01-25-2018 Bilirubin Ql (U) 0.2 Invalid Interpretation Code <1.3 [facility] WBC LM Ql (Sput) 4.4 Invalid Interpretation Code 3.7-10.8 [facility] 74.5 Invalid Interpretation Code >59 [facility] 237 Invalid Interpretation Code 150.-450. [facility] 15 Invalid Interpretation Code 0-30 [facility] 64.3 Invalid Interpretation Code >59 [facility] Thyroidon 01-25-2018 T4 free mass conc 1.140 ng/dL Invalid Interpretation Code 0.80-1.90 [facility] Thyrotropin Qn 1.750 uIU/mL Invalid Interpretation Code 0.400-4.10 0 [facility] Progress Noteon 10-23-2017 HIM IP Note OR [employer] Normal [facility] HIM IP Note OR [employer] Operator Normal [facility] Otheron 09-20-2017 3 Invalid Interpretation Code [facility] 3 Invalid Interpretation Code [facility] Cardiacon 09-14-2017 Cholesterol 220 mg/dL Invalid Interpretation Code <200 [facility] HDL Cholesterol 77.0 mg/dL Invalid Interpretation Code >39 [facility] Triglyceride 113.0 mg/dL Invalid Interpretation Code <150 [facility] Hematologyon 09-14-2017 Basophils Auto #/vol (Bld) 1.0 % Invalid Interpretation Code [facility] Basophils/100 WBC Auto (Bld) 0.1 K/uL Invalid Interpretation Code 0.0-0.1 [facility] Eosinophils/100 leukocytes 2.9 % Invalid Interpretation Code [facility] Erythrocyte distribution width Auto Ratio (RBC) 14.1 % Invalid Interpretation Code 10.8-14.8 [facility] Erythrocytes (RBC) 4.230 10*6/uL Invalid Interpretation Code 4.00-5.50 [facility] Hematocrit (HCT) 37.0 % Invalid Interpretation Code 36.0-48.0 [facility] Hemoglobin S presence 11.7 Invalid Interpretation Code 12.0-16.0 [facility] Lipoprotein a mass conc 0.2 10*3/uL Invalid Interpretation Code 0.1-0.4 [facility] Lipoprotein a mass conc 2.0 10*3/uL Invalid Interpretation Code 0.8-5.2 [facility] Lipoprotein a mass conc 0.5 10*3/uL Invalid Interpretation Code 0.1-0.9 [facility] Lipoprotein a mass conc 2.6 10*3/uL Invalid Interpretation Code 1.3-9.1 [facility] Lymphocytes/100 leukocytes 37.6 % Invalid Interpretation Code [facility] MCH 27.7 pg Invalid Interpretation Code 27.0-34.0 [facility] MCHC mass conc (RBC) 31.6 g/dL Invalid Interpretation Code 31.0-36.0 [facility] MCV 87.5 fL Invalid Interpretation Code 80.-100. [facility] Monocytes/100 leukocytes 8.8 % Invalid Interpretation Code [facility] Neutrophils/100 leukocytes 49.5 % Invalid Interpretation Code [facility] WBC (Leukocytes) 5.2 10*3/uL Invalid Interpretation Code 3.7-10.8 [facility] Otheron 09-14-2017 Cholesterol crystals Infrared spectroscopy Ql (Stone) 220 mg/dL Invalid Interpretation Code <200 [facility] Cholesterol to HDL Ratio 2.9 {ratio} Invalid Interpretation Code <5 [facility] LDL to HDL Ratio 1.6 Invalid Interpretation Code <3.5 [facility] Snaapiq Lipoprotein.beta/Lipopro tein.alpha mass ratio 1.6 Invalid Interpretation Code <3.5 [facility] PreB-LP SerPl-mCnc 23.0 mg/dL Invalid Interpretation Code <30 [facility] PreB-LP SerPl-mCnc 120.0 mg/dL Invalid Interpretation Code <130 [facility] WBC LM Ql (Sput) 5.2 Invalid Interpretation Code 3.7-10.8 [facility] Snaapiq 298 Invalid Interpretation Code 150.-450. [facility] Thyroidon 09-14-2017 Thyroid stimulating hormone (TSH) 2.270 uIU/mL Invalid Interpretation Code 0.40-4.10 [facility] Thyroxine (T4) free 0.990 ng/dL Invalid Interpretation Code 0.80-1.90 [facility] Vital Signs Date Time Vital Sign Value Performing Clinician Ni barnard 01-31-2024 14:17-0400 Body mass index (BMI) [Ratio] 62.69 kg/m2 Erica Siddiquitrick PUMPMAN Work Phone: [facility] 01-31-2024 14:17-0400 Body temperature 97.2 [degF] Erica Siddiquitrick PUMPMAN Work Phone: [facility] 01-31-2024 14:17-0400 Body weight 145.6 kg Erica Siddiquitrick PUMPMAN Work Phone: [facility] 01-31-2024 14:17-0400 Diastolic blood pressure 80 mm[Hg] Erica Menonpatrick PUMPMAN Work Phone: [facility] 01-31-2024 14:17-0400 Heart rate 57 /min Erica Siddiquitrick PUMPMAN Work Phone: [facility] 01-31-2024 14:17-0400 SaO2% (BldA) [Mass fraction] 94 % Erica Siddiquitrick PUMPMAN Work Phone: [facility] 01-31-2024 14:17-0400 Systolic blood pressure 152 mm[Hg] Erica Menonpatrick PUMPMAN Work Phone: [facility] 01-15-2024 14:38-0400 Diastolic blood pressure 74 mm[Hg] Hanane Courtneyasi SENIOR CONSTRUCTION ESTIMATOR-SUPERVISOR TYPE PHOTOGRAPHY Work Phone: [facility] 01-15-2024 14:38-0400 Heart rate 68 /min Hanane Valdezasi SENIOR CONSTRUCTION ESTIMATOR-SUPERVISOR TYPE PHOTOGRAPHY Work Phone: [facility] 01-15-2024 14:38-0400 Systolic blood pressure 130 mm[Hg] Hanane BARRERA Work Phone: [facility] [employer] [facility] 01-15-2024 14:36-0400 Body mass index (BMI) [Ratio] 64.25 kg/m2 Hanane BARRERA Work Phone: [facility] [employer] [facility] 01-15-2024 14:36-0400 Body weight 149.23 kg Hanane BARRERA Work Phone: [facility] [employer] [facility] 01-15-2024 14:36-0400 SaO2% (BldA) [Mass fraction] 96 % Hanane BARRERA Work Phone: [facility] [employer] [facility] 11-29-2023 08:53-0400 Body height 152.4 cm Pfo 1 [facility] [employer] [facility] 11-29-2023 08:53-0400 Body mass index (BMI) [Ratio] 65.27 kg/m2 Pfo 1 [facility] [employer] [facility] 11-29-2023 08:53-0400 Body temperature 97.39 [degF] Pfo 1 [facility] 11-29-2023 08:53-0400 Body weight 151.59 kg Pfo 1 [facility] [employer] [facility] 11-29-2023 08:53-0400 Diastolic blood pressure 73 mm[Hg] Pfo 1 [facility] [employer] [facility] 11-29-2023 08:53-0400 Heart rate 73 /min Pfo 1 [facility] [facility] 11-29-2023 08:53-0400 Respiratory rate 21 /min Pfo 1 [facility] 11-29-2023 08:53-0400 SaO2% (BldA) [Mass fraction] 99 % Pfo 1 [facility] [facility] 11-29-2023 08:53-0400 Systolic blood pressure 142 mm[Hg] Pfo 1 [facility] 10-18-2023 21:58-0400 Heart rate 75 /min Isma Hayward MD Work Phone: [facility] [email or web address] 10-18-2023 21:58-0400 Respiratory rate 18 /min Isma Hayward MD Work Phone: [facility] 10-18-2023 21:48-0400 SaO2% (BldA) [Mass fraction] 94 % Isma Hayward MD Work Phone: [facility] 10-18-2023 19:27-0400 Body temperature 98.1 [degF] Isma Hayward MD Work Phone: [facility] 10-18-2023 19:27-0400 Diastolic blood pressure 77 mm[Hg] Isma Hayward MD Work Phone: [facility] 10-18-2023 19:27-0400 Systolic blood pressure 137 mm[Hg] Isma Hayward MD Work Phone: [facility] 10-18-2023 03:45-0400 Body mass index (BMI) [Ratio] 64.86 kg/m2 Isma Hayward MD Work Phone: [facility] 10-18-2023 03:45-0400 Body weight 150.64 kg Isma Hayward MD Work Phone: [facility] 10-16-2023 12:10-0400 Body height 152.4 cm Isma Hayward MD Work Phone: [facility] 02-13-2018 13:08-0400 BMI (Body Mass Index) 56.47 kg/m2 [facility] 02-13-2018 13:08-0400 Body Temperature 98 [degF] [facility] 02-13-2018 13:08-0400 BP Diastolic 80 mm[Hg] [facility] 02-13-2018 13:08-0400 BP Systolic 124 mm[Hg] [facility] 02-13-2018 13:08-0400 BSA (Body Surface Area) 2.39 m2 Leda Agrawal [facility] 02-13-2018 13:08-0400 Height 153.67 cm [facility] 02-13-2018 13:08-0400 Pulse (Heart Rate) 74 /min Leda Tanja [facility] 02-13-2018 13:08-0400 Pulse Oximetry 97 % [facility] 02-13-2018 13:08-0400 Respiratory Rate 20 /min [facility] 02-13-2018 13:08-0400 Weight 133.36 kg [facility] 02-13-2018 10:08-0400 Body height 153.67 cm Leda Agrawal CNP Work Phone: [facility] Work Phone: 02-13-2018 10:08-0400 Body mass index (BMI) [Ratio] 56.5 kg/m2 Leda Agrawal CNP Work Phone: [facility] Work Phone: 02-13-2018 10:08-0400 Body surface area Derived from formula 2.21 m2 Leda Agrawal CNP Work Phone: [facility] Work Phone: 02-13-2018 10:08-0400 Body temperature 98 [degF] Leda Agrawal CNP Work Phone: [facility] Work Phone: 02-13-2018 10:08-0400 Body weight 133.36 kg Leda Agrawal CNP Work Phone: [facility] Work Phone: 02-13-2018 10:08-0400 Diastolic blood pressure 80 mm[Hg] Leda Agrawal CNP Work Phone: [facility] Work Phone: 02-13-2018 10:08-0400 Heart rate 74 /min Leda Agrawal CNP Work Phone: [facility] Work Phone: 02-13-2018 10:08-0400 Respiratory rate 20 /min Leda Agrawal CNP Work Phone: [facility] Work Phone: 02-13-2018 10:08-0400 Systolic blood pressure 124 mm[Hg] Leda Agrawal CNP Work Phone: [facility] Work Phone: 01-25-2018 12:47-0400 BMI (Body Mass Index) 56.47 kg/m2 [facility] 01-25-2018 12:47-0400 Body Temperature 98.4 [degF] [facility] 01-25-2018 12:47-0400 BP Diastolic 82 mm[Hg] [facility] 01-25-2018 12:47-0400 BP Systolic 122 mm[Hg] [facility] 01-25-2018 12:47-0400 BSA (Body Surface Area) 2.39 m2 [facility] 01-25-2018 12:47-0400 Height 153.67 cm [facility] 01-25-2018 12:47-0400 Pulse (Heart Rate) 73 /min [facility] 01-25-2018 12:47-0400 Pulse Oximetry 96 % [facility] 01-25-2018 12:47-0400 Respiratory Rate 18 /min [facility] 01-25-2018 12:47-0400 Weight 133.36 kg Leda Agrawal [facility] 01-25-2018 09:47-0400 Body height 153.67 cm Leda Agrawal CNP Work Phone: [facility] Work Phone: 01-25-2018 09:47-0400 Body mass index (BMI) [Ratio] 56.5 kg/m2 Leda Agrawal CNP Work Phone: [facility] Work Phone: 01-25-2018 09:47-0400 Body surface area Derived from formula 2.21 m2 Leda Agrawal CNP Work Phone: [facility] Work Phone: 01-25-2018 09:47-0400 Body temperature 98.4 [degF] Leda Agrawal CNP Work Phone: [facility] Work Phone: 01-25-2018 09:47-0400 Body weight 133.36 kg Leda Agrawal CNP Work Phone: [facility] Work Phone: 01-25-2018 09:47-0400 Diastolic blood pressure 82 mm[Hg] Leda Agrawal CNP Work Phone: [facility] Work Phone: 01-25-2018 09:47-0400 Heart rate 73 /min Leda Agrawal CNP Work Phone: [facility] Work Phone: 01-25-2018 09:47-0400 Respiratory rate 18 /min Leda Agrawal CNP Work Phone: [facility] Work Phone: 01-25-2018 09:47-0400 Systolic blood pressure 122 mm[Hg] Leda Argawal CNP Work Phone: [facility] Work Phone: 11-14-2017 18:20-0400 BMI (Body Mass Index) 56.47 kg/m2 [facility] 11-14-2017 18:20-0400 Body Temperature 97.4 [degF] [facility] 11-14-2017 18:20-0400 BP Diastolic 80 mm[Hg] [facility] 11-14-2017 18:20-0400 BP Systolic 130 mm[Hg] [facility] 11-14-2017 18:20-0400 BSA (Body Surface Area) 2.39 m2 [facility] 11-14-2017 18:20-0400 Height 153.67 cm [facility] 11-14-2017 18:20-0400 Pulse (Heart Rate) 96 /min [facility] 11-14-2017 18:20-0400 Pulse Oximetry 95 % [facility] 11-14-2017 18:20-0400 Respiratory Rate 18 /min [facility] 11-14-2017 18:20-0400 Weight 133.36 kg [facility] 11-14-2017 15:20-0400 Body height 153.67 cm [facility] SUPERVISOR TYPE PHOTOGRAPHY Work Phone: [facility] Work Phone: 11-14-2017 15:20-0400 Body mass index (BMI) [Ratio] 56.5 kg/m2 [facility] SUPERVISOR TYPE PHOTOGRAPHY Work Phone: [facility] Work Phone: 11-14-2017 15:20-0400 Body surface area Derived from formula 2.21 m2 Leda Agrawal CNP Work Phone: [facility] Work Phone: 11-14-2017 15:20-0400 Body temperature 97.4 [degF] Leda Agrawal CNP Work Phone: [facility] Work Phone: 11-14-2017 15:20-0400 Body weight 133.36 kg Leda Agrawal CNP Work Phone: [facility] Work Phone: 11-14-2017 15:20-0400 Diastolic blood pressure 80 mm[Hg] Leda Agrawal CNP Work Phone: [facility] Work Phone: 11-14-2017 15:20-0400 Heart rate 96 /min Leda Agrawal CNP Work Phone: [facility] Work Phone: 11-14-2017 15:20-0400 Respiratory rate 18 /min Leda Agrawal CNP Work Phone: [facility] Work Phone: 11-14-2017 15:20-0400 Systolic blood pressure 130 mm[Hg] Leda Agrawal CNP Work Phone: [facility] Work Phone: 10-12-2017 11:11-0400 BMI (Body Mass Index) 57.12 kg/m2 Leda Agrawal [facility] 10-12-2017 11:11-0400 Body Temperature 98.8 [degF] Leda Agrawal [facility] 10-12-2017 11:11-0400 BP Diastolic 83 mm[Hg] Leda Agrawal [facility] 10-12-2017 11:11-0400 BP Systolic 122 mm[Hg] Leda Agrawal [facility] 10-12-2017 11:11-0400 BSA (Body Surface Area) 2.4 m2 [facility] 10-12-2017 11:11-0400 Height 153.67 cm [facility] 10-12-2017 11:11-0400 Pulse (Heart Rate) 79 /min [facility] 10-12-2017 11:11-0400 Pulse Oximetry 99 % [facility] 10-12-2017 11:11-0400 Respiratory Rate 18 /min [facility] 10-12-2017 11:11-0400 Weight 134.89 kg [facility] 10-12-2017 10:11-0400 BMI (Body Mass Index) 57.12 kg/m2 [facility] 10-12-2017 10:11-0400 Body Temperature 98.8 [degF] [facility] 10-12-2017 10:11-0400 BP Diastolic 83 mm[Hg] [facility] 10-12-2017 10:11-0400 BP Systolic 122 mm[Hg] [facility] 10-12-2017 10:11-0400 BSA (Body Surface Area) 2.4 m2 [facility] 10-12-2017 10:11-0400 Height 153.67 cm [facility] 10-12-2017 10:11-0400 Pulse (Heart Rate) 79 /min [facility] 10-12-2017 10:11-0400 Pulse Oximetry 99 % Leda Agrawal [facility] 10-12-2017 10:11-0400 Respiratory Rate 18 /min Leda Agrawal [facility] 10-12-2017 10:11-0400 Weight 134.89 kg Leda Agrawal [facility] 10-12-2017 08:11-0400 Body height 153.67 cm Leda Agrawal CNP Work Phone: [facility] Work Phone: 10-12-2017 08:11-0400 Body mass index (BMI) [Ratio] 57 kg/m2 Leda Agrawal CNP Work Phone: [facility] Work Phone: 10-12-2017 08:11-0400 Body surface area Derived from formula 2.22 m2 Leda Agrawal CNP Work Phone: [facility] Work Phone: 10-12-2017 08:11-0400 Body temperature 98.8 [degF] Leda Agrawal CNP Work Phone: [facility] Work Phone: 10-12-2017 08:11-0400 Body weight 134.72 kg Leda Agrawal CNP Work Phone: [facility] Work Phone: 10-12-2017 08:11-0400 Diastolic blood pressure 83 mm[Hg] Leda Agrawal CNP Work Phone: [facility] Work Phone: 10-12-2017 08:11-0400 Heart rate 79 /min Leda Agrawal CNP Work Phone: [facility] Work Phone: 10-12-2017 08:11-0400 Respiratory rate 18 /min Leda Agrawal CNP Work Phone: [facility] Work Phone: 10-12-2017 08:11-0400 Systolic blood pressure 122 mm[Hg] Leda Agrawal [facility] Work Phone: [facility] Work Phone: 09-20-2017 17:04-0400 BP Diastolic 80 mm[Hg] [facility] 09-20-2017 17:04-0400 BP Systolic 136 mm[Hg] [facility] 09-20-2017 16:19-0400 BMI (Body Mass Index) 59.21 kg/m2 [facility] 09-20-2017 16:19-0400 Body Temperature 97.1 [degF] [facility] 09-20-2017 16:19-0400 BP Diastolic 80 mm[Hg] [facility] 09-20-2017 16:19-0400 BP Systolic 142 mm[Hg] [facility] 09-20-2017 16:19-0400 BSA (Body Surface Area) 2.44 m2 [facility] 09-20-2017 16:19-0400 Height 153.67 cm [facility] 09-20-2017 16:19-0400 Pulse (Heart Rate) 94 /min [facility] 09-20-2017 16:19-0400 Pulse Oximetry 96 % [facility] 09-20-2017 16:19-0400 Respiratory Rate 18 /min [facility] 09-20-2017 16:19-0400 Weight 139.82 kg [facility] 09-20-2017 16:04-0400 BP Diastolic 80 mm[Hg] [facility] 09-20-2017 16:04-0400 BP Systolic 136 mm[Hg] [facility] 09-20-2017 15:19-0400 BMI (Body Mass Index) 59.21 kg/m2 [facility] 09-20-2017 15:19-0400 Body Temperature 97.1 [degF] [facility] 09-20-2017 15:19-0400 BP Diastolic 80 mm[Hg] [facility] 09-20-2017 15:19-0400 BP Systolic 142 mm[Hg] [facility] 09-20-2017 15:19-0400 BSA (Body Surface Area) 2.44 m2 [facility] 09-20-2017 15:19-0400 Height 153.67 cm [facility] 09-20-2017 15:19-0400 Pulse (Heart Rate) 94 /min [facility] 09-20-2017 15:19-0400 Pulse Oximetry 96 % [facility] 09-20-2017 15:19-0400 Respiratory Rate 18 /min [facility] 09-20-2017 15:19-0400 Weight 139.82 kg [facility] 09-20-2017 14:04-0400 Diastolic blood pressure 80 mm[Hg] [facility] Work Phone: [facility] Work Phone: 09-20-2017 14:04-0400 Systolic blood pressure 136 mm[Hg] Leda Agrawal CNP Work Phone: [facility] Work Phone: 09-20-2017 13:19-0400 Body height 153.67 cm Leda Agrawal CNP Work Phone: [facility] Work Phone: 09-20-2017 13:19-0400 Body mass index (BMI) [Ratio] 59.2 kg/m2 Leda Agrawal CNP Work Phone: [facility] Work Phone: 09-20-2017 13:19-0400 Body surface area Derived from formula 2.26 m2 Leda Agrawal CNP Work Phone: [facility] Work Phone: 09-20-2017 13:19-0400 Body temperature 97.1 [degF] Leda Agrawal CNP Work Phone: [facility] Work Phone: 09-20-2017 13:19-0400 Body weight 139.71 kg Leda Agrawal CNP Work Phone: [facility] Work Phone: 09-20-2017 13:19-0400 Diastolic blood pressure 80 mm[Hg] Leda Agrawal CNP Work Phone: [facility] Work Phone: 09-20-2017 13:19-0400 Heart rate 94 /min Leda Agrawal CNP Work Phone: [facility] Work Phone: 09-20-2017 13:19-0400 Respiratory rate 18 /min Leda Agrawal CNP Work Phone: [facility] Work Phone: 09-20-2017 13:19-0400 Systolic blood pressure 142 mm[Hg] Leda Agrawal CNP Work Phone: [facility] Work Phone: 09-14-2017 12:35-0400 BMI (Body Mass Index) 59.76 kg/m2 [facility] 09-14-2017 12:35-0400 Body Temperature 97 [degF] [facility] 09-14-2017 12:35-0400 BP Diastolic 72 mm[Hg] [facility] 09-14-2017 12:35-0400 BP Systolic 122 mm[Hg] [facility] 09-14-2017 12:35-0400 BSA (Body Surface Area) 2.45 m2 [facility] 09-14-2017 12:35-0400 Height 153.67 cm [facility] 09-14-2017 12:35-0400 Pulse (Heart Rate) 71 /min [facility] 09-14-2017 12:35-0400 Pulse Oximetry 97 % [facility] 09-14-2017 12:35-0400 Respiratory Rate 18 /min [facility] 09-14-2017 12:35-0400 Weight 141.13 kg [facility] 09-14-2017 11:35-0400 BMI (Body Mass Index) 59.76 kg/m2 [facility] 09-14-2017 11:35-0400 Body Temperature 97 [degF] [facility] 09-14-2017 11:35-0400 BP Diastolic 72 mm[Hg] [facility] 09-14-2017 11:35-0400 BP Systolic 122 mm[Hg] Leda Tanja [facility] 09-14-2017 11:35-0400 BSA (Body Surface Area) 2.45 m2 Leda Tanja [facility] 09-14-2017 11:35-0400 Height 153.67 cm [facility] 09-14-2017 11:35-0400 Pulse (Heart Rate) 71 /min [facility] 09-14-2017 11:35-0400 Pulse Oximetry 97 % [facility] 09-14-2017 11:35-0400 Respiratory Rate 18 /min [facility] 09-14-2017 11:35-0400 [facility] 141[facility]13 [facility] 09:35-0400 Body height 153.67 cm Leda Agrawal [facility] Work Phone: [facility] Work Phone: 09-14-2017 09:35-0400 Body mass index (BMI) [Ratio] 59.7 kg/m2 Leda Agrawal CNP Work Phone: [facility] Work Phone: 09-14-2017 09:35-0400 Body surface area Derived from formula 2.27 m2 Leda Agrawal CNP Work Phone: [facility] Work Phone: 09-14-2017 09:35-0400 Body temperature 97 [degF] Leda Agrawal SUPERVISOR TYPE PHOTOGRAPHY Work Phone: [facility] Work Phone: 09-14-2017 09:35-0400 Body weight 141.07 kg Leda Agrawal CNP Work Phone: [facility] Work Phone: 09-14-2017 09:35-0400 Diastolic blood pressure 72 mm[Hg] Leda Agrawal SUPERVISOR TYPE PHOTOGRAPHY Work Phone: [facility] Work Phone: 09-14-2017 09:35-0400 Heart rate 71 /min Leda Agrawal SUPERVISOR TYPE PHOTOGRAPHY Work Phone: [facility] Work Phone: 09-14-2017 09:35-0400 Respiratory rate 18 /min Leda Agrawal SUPERVISOR TYPE PHOTOGRAPHY Work Phone: [facility] Work Phone: 09-14-2017 09:35-0400 Systolic blood pressure 122 mm[Hg] Leda Agrawal SUPERVISOR TYPE PHOTOGRAPHY Work Phone: [facility] Work Phone: Encounters Encounter Date Encounter Type Care Provider Facility Start: 12-06-2024 ambulatory [facility] Start: 12-06-2024 End: 12-06-2024 ambulatory [facility] Start: 11-21-2024 End: 11-21-2024 ambulatory [facility] Start: 11-07-2024 End: 11-07-2024 ambulatory [facility] Start: 10-08-2024 End: 10-08-2024 ambulatory [facility] Start: 05-23-2024 End: 05-23-2024 ambulatory [facility] Start: 05-20-2024 End: 05-20-2024 ambulatory [facility] Start: 05-09-2024 End: 05-09-2024 ambulatory [facility] Start: 03-19-2024 End: 03-19-2024 Telephone encounter Keenan CHAMPION [facility] Start: 02-16-2024 End: 02-16-2024 Refill Janedebra Freemanelka SENIOR CONSTRUCTION ESTIMATOR-SUPERVISOR TYPE PHOTOGRAPHY Work Phone: [facility] Start: 01-31-2024 End: 01-31-2024 Bamboo flowsheet Erica Pompa PUMPMAN Work Phone: [facility] Start: 01-31-2024 End: 01-31-2024 Bamboo flowsheet Erica Pompa PUMPMAN Work Phone: [facility] Start: 01-31-2024 End: 01-31-2024 Office outpatient visit 10 minutes Erica Siddiquitrick PUMPMAN Work Phone: [facility] Comment on above: Chronic obstructive pulmonary disease with acute exacerbation (CMS/HCC) (Primary Dx); Chronic rhinitis; Bipolar depression ([facility]); ADORE (obstructive sleep apnea); Pulmonary emphysema, unspecified emphysema type ([facility]/HCC) Start: 01-31-2024 End: 01-31-2024 Refill Janedebra Freemanelka SENIOR CONSTRUCTION ESTIMATOR-SUPERVISOR TYPE PHOTOGRAPHY Work Phone: [facility] Start: 01-31-2024 End: 01-31-2024 ambulatory ERICA POMPA Not Available Start: 01-29-2024 End: 01-29-2024 Refill Erica Pompa PUMPMAN Work Phone: [facility] Comment on above: ARSH (generalized anx iety disorder) ([facility]/HCC) Start: 01-29-2024 End: 01-29-2024 Refill Jane L Veselka SENIOR CONSTRUCTION ESTIMATOR-SUPERVISOR TYPE PHOTOGRAPHY Work Phone: [facility] Start: 01-22-2024 End: 01-22-2024 ambulatory [facility] Start: 01-15-2024 End: 01-15-2024 Office outpatient visit 40 minutes [facility] SENIOR CONSTRUCTION ESTIMATOR-SUPERVISOR TYPE PHOTOGRAPHY Work Phone: [facility] Comment on above: ERIN (acute kidney in jury) ([facility]) (Primary Dx); 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 ([facility]) ; Hypovitaminosis D; Hypomagnesemia; Primary hypertension; Nephrotic range proteinuria Start: 01-12-2024 End: 01-12-2024 ambulatory [facility] Start: 01-04-2024 End: 01-04-2024 Telephone encounter Scanning Provider External N [facility] Start: 01-02-2024 End: 01-02-2024 Orders Only Shazia La RN N [facility] Comment on above: 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 (Primary Dx) Start: 12-19-2023 End: 12-19-2023 [facility] Start: 11-29-2023 End: 11-29-2023 ambulatory [facility] Comment on above: 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 Start: 11-02-2023 End: 11-02-2023 ambulatory SHAIKH JHONY Not Available Start: 10-20-2023 End: 10-25-2023 Evaluation and management of inpatient [facility] Start: 10-18-2023 End: 10-25-2023 Evaluation and management of inpatient NATASHA. [facility] Start: 10-14-2023 End: 10-19-2023 Emergency department patient visit ALEXIS Olguin LEXI [facility] Start: 10-14-2023 End: 10-18-2023 Evaluation and management of inpatient NOT IN SYSTEM [facility] Comment on above: ERIN (acute kidney in jury) ([facility]) (Primary Dx); Hypertensive urgency; Hypokalemia; Elevated brain natriuretic peptide (BNP) level Start: 04-26-2023 End: 04-26-2023 ambulatory LINARES JHONY Not Available Start: 04-15-2022 End: 04-17-2022 ambulatory QUYNH ARCHER Facility:H1 Start: 02-08-2022 End: 02-09-2022 ambulatory NANCI BEEBE Facility:H1 Start: 12-30-2021 End: 12-31-[address] VU RIVERA Facility:H1 Start: 01-20-2020 End: 01-23-2020 Patient encounter procedure [facility] Start: 01-20-2020 End: 01-22-2020 Subsequent hospital visit by physician Roman Palacio Dr Room 4 [facility] Comment on above: Chronic bilateral lo w back pain without sciatica Chronic neck pain; Chronic bilateral low back pain without sciatica Start: 07-31-2018 Patient encounter procedure Heath Kirkpatrick Facility:[id number] Start: 07-20-2018 End: 07-20-2018 General Leda Agrawal CNP Work Phone: [facility] Work Phone: Start: 02-13-2018 End: 02-13-2018 Patient encounter procedure Leda Agrawal CNP Work Phone: [facility] Work Phone: Start: 02-13-2018 Office outpatient vi sit 15 minutes Leda Agrawal Other [facility] Start: 01-25-2018 End: 01-25-2018 Patient encounter procedure Leda Agrawal CNP Work Phone: [facility] Work Phone: Start: 01-25-2018 Office outpatient vi sit 15 minutes Leda Agrawal Other [facility] Start: 11-14-2017 Office outpatient vi sit 15 minutes Leda Agrawal Other [facility] Start: 11-14-2017 End: 11-14-2017 Patient encounter procedure Leda Agrawal SUPERVISOR TYPE PHOTOGRAPHY Work Phone: [facility] Work Phone: Start: 10-12-2017 End: 10-12-2017 Patient encounter procedure Leda Agrawal SUPERVISOR TYPE PHOTOGRAPHY Work Phone: [facility] Work Phone: Start: 10-12-2017 End: 10-12-2017 Office outpatient visit 15 minutes Leda Agrawal Other [facility] Start: 10-12-2017 Polysom 6/>yrs sleep 4/> addl nicky attnd [facility] Start: 10-12-2017 Polysom 6/>yrs sleep w[facility]cpap 4/> [facility] Start: 09-20-2017 End: 09-20-2017 Office outpatient visit 15 minutes Leda Agrawal Other [facility] Start: 09-20-2017 End: 09-20-2017 Patient encounter procedure eLda Agrawal SUPERVISOR TYPE PHOTOGRAPHY Work Phone: [facility] Work Phone: Start: 09-14-2017 End: 09-14-2017 Patient encounter procedure Leda Agrawal SUPERVISOR TYPE PHOTOGRAPHY Work Phone: [facility] Work Phone: Start: 09-14-2017 Laboratory examinati on, unspecified Leda Agrawal [facility] Start: 09-14-2017 Colonoscopy w/biopsy single/multiple Leda Agrawal [facility] Start: 09-14-2017 Dxa bone density kourtney dy 1/> [facility] Start: 09-14-2017 End: 09-14-2017 Office outpatient new 45 minutes Leda Agrawal Other [facility] Procedures Date Procedure Procedure Detail Performing Clinician Start: 10-19-2023 Adult depression scr eening assessment Shazia La RN Start: 10-18-2023 POCT IONIZED CALCIUM Axel Jewell MD Work Phone: Start: 10-18-2023 Comprehensive metabo lic panel Kristina Travis SENIOR CONSTRUCTION ESTIMATOR-BERD Work Phone: Start: 10-17-2023 Potassium serum plas ma/whole blood Elva Man MD Work Phone: Start: 10-17-2023 Blood occult peroxid ase actv qual feces 1-3 spec Nataliia Cohen SENIOR CONSTRUCTION ESTIMATOR-SUPERVISOR TYPE PHOTOGRAPHY Work Phone: Start: 10-17-2023 Pulmonary ventilatio n & perfusion imaging Nataliia Cohen SENIOR CONSTRUCTION ESTIMATOR-SUPERVISOR TYPE PHOTOGRAPHY Work Phone: Start: 10-17-2023 End: 10-17-2023 Comprehensive metabolic panel Kristina Travis SENIOR CONSTRUCTION ESTIMATOR-SUPERVISOR TYPE PHOTOGRAPHY Work Phone: Start: 10-16-2023 Fibrin dgradj produc [...] wom-mode compl spec&colr d Antione D Krotzer SENIOR CONSTRUCTION ESTIMATOR-SUPERVISOR TYPE PHOTOGRAPHY Work Phone: Start: 10-16-2023 End: 10-16-2023 Potassium serum plasma/whole blood Dre Jewell MD Work Phone: Start: 10-16-2023 Us retroperitoneal r eal time w/image complete Fran Wild MD Work Phone: Start: 10-16-2023 End: 10-16-2023 Comprehensive metabolic panel Kristina Robles SENIOR CONSTRUCTION ESTIMATOR-SUPERVISOR TYPE PHOTOGRAPHY Work Phone: Start: 10-16-2023 CLINICAL PATHOLOGY Alhaji [...] Phone: Start: 10-15-2023 BIPAP/CPAP/AUTOPAP Antione Hernández Kulwinderdeirdre SENIOR CONSTRUCTION ESTIMATOR-SUPERVISOR TYPE PHOTOGRAPHY Work Phone: Start: 10-15-2023 Comprehensive metabo lic panel Kristina Robles SENIOR CONSTRUCTION ESTIMATOR-SUPERVISOR TYPE PHOTOGRAPHY Work Phone: Start: 10-14-2023 Radiologic exam ches [...] son RN Start: 02-25-2019 Mammography Erica henderson PUMPMAN Work Phone: Start: 08-10-2018 Follow-up visit Start: [...] 10-13-2029 Screening for malignant neoplasm of colon [facility] Start: 01-14-2025 Adult BMI Screening Adult BMI Screening [facility] Start: 11-28-2024 Adult BMI Screening Adult BMI Screening [facility] Start: 11-28-2024 Tobacco Screening Tobacco Screening [facility] Start: 10-24-2024 Adult BMI Screening Adult BMI Screening [facility] Start: 10-18-2024 Depression Screening Depression Screening [facility] Start: 10-18-2024 Tobacco Screening Tobacco Screening [facility] Start: 10-13-2024 Screening for malignant neoplasm of colon Colonoscopy [facility] Start: 03-25-2024 End: 03-25-2024 Patient encounter procedure 03/25/2024 10:30 AM EST Office Visit [facility] [address] [place] [address] Fran Wild MD [address] [place] [address] [facility] Start: 02-06-2024 End: 02-06-2024 Patient encounter procedure 02/06/2024 1:30 PM EDT Office Visit [facility] [address] [place] [phone] Erica Pompa, PUMPMAN [address] [place] [phone] [facility] Start: 01-31-2024 End: 01-31-2024 Patient encounter procedure 01/31/2024 2:00 PM EDT Office Visit [facility] [address] [place] [phone] Erica Pompa, PUMPMAN [address] [place] [phone] Arrived [facility] Comment on above: Arrived Start: 01-31-2024 End: 01-30-2025 XR Chest 2 Views XR chest 2 views Imaging Routine Chronic obstructive pulmonary disease with acute exacerbation (CMS/HCC) Expected: 01/31/2024, Expires: 01/30/2025 [facility] Work Phone: Comment on above: Expected: 01/31/2024, Expires: Start: 01-22-2024 End: 01-14-2025 Basic metabolic 2000 panel - Serum or Plasma Basic Metabolic Panel Lab Routine 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 ([facility]) Expected: 01/22/2024 (Approximate), Expires: 01/14/2025 [facility] Work Phone: Comment on above: Expected: 01/22/2024 (Approximate), Expi res: 01/14/2025 Start: 12-24-2023 Influenza vaccination [facility] Start: 12-06-2023 End: 12-06-2023 ambulatory 12/06/2023 10:00 AM EDT Infusion Sylviajesika Zayas [facility] [address] [place] [address] Sylvia Zayas [facility] Start: 01-30-2021 COVID-19 Vaccine (2 - Roxanne risk series) COVID-19 Vaccine (2 - Roxanne risk series) [facility] Start: 04-30-2020 End: 04-30-2020 Office Visit 04/30/2020 Office Visit Neurology Tim Sharma MD [address] [place] [address] [address] [place] [address] [facility] Start: 02-26-2020 Screening for malignant neoplasm of breast Mammogram [facility] Start: 12-24-2019 Influenza vaccination Flu vaccine (#1) [place] Start: 08-31-2019 Screening for malignant neoplasm of lung Low dose CT lung screening [place] Start: 02-13-2019 Creatinine measurement Creatinine monitoring [place], [place] Start: 11-30-2018 Potassium monitoring Potassium monitoring [place] Start: 11-08-2018 Lipid panel Lipid screen [place] Start: 08-02-2018 [facility] visit, estab pt Established Patient [facility] Work Phone: Start: 10-12-2017 Polysom 6/>yrs sleep 4/> addl nicky attnd Polysomnography with CPAP testing [facility] Start: 10-12-2017 Polysom 6/>yrs sleep w/cpap 4/> addl nicky attnd Polysomnography with CPAP testing [facility] Start: 09-14-2017 Dual energy X-ray photon absorptiometry DEXA scan for body composition study [facility] Start: 08-22-2016 Screening for malignant neoplasm of breast Breast cancer screen [place] Start: 01-24-2016 Screening for malignant neoplasm of cervix Cervical cancer screen [place] Start: 2014 Screening for malignant neoplasm of colon Colon cancer screen colonoscopy [place] Start: 2014 Shingles Vaccine (1 of 2) Shingles Vaccine (1 of 2) [place] Start: 1994 Screening for malignant neoplasm of cervix [facility] Start: 1985 Screening for malignant neoplasm of cervix Pap Smear [facility] Start: 08-31-1983 Administration of varicella zoster vaccine Zoster (Shingles) Vaccine (1 of 2) [facility] Start: 08-31-1983 DTaP,Tdap and Td Vaccines (1 - Tdap) DTaP,Tdap and Td Vaccines (1 - Tdap) [facility] Start: 08-31-1983 DTaP/Tdap/Td vaccine (1 - Tdap) DTaP/Tdap/Td vaccine (1 - Tdap) [place] Start: 1982 Adult BMI Follow Up Plan Adult BMI Follow Up Plan [facility] Start: 08-31-1979 HIV screening HIV screen [place] Start: 1970 Pneumococcal 0-64 years Vaccine (1 of 1 - PPSV23) Pneumococcal 0-64 years Vaccine (1 of 1 - PPSV23) [place] Start: 1964 Hepatitis C screening Hepatitis C screen [place] Start: 1964 Screening for malignant neoplasm of colon [facility] Start: 1964 Tobacco Counseling Tobacco Counseling [facility] Basement membrane Ig G Ab [Units/volume] in Serum Glomerular Basement Membrane IgG, Serum Lab Routine 10/18/2023 11:37 AM EDT [facility] Basic metabolic 2000 panel - Serum or Plasma Basic Metabolic Panel Lab Routine Lab max of 3 days, Daily, for lab use only until discontinued starting 10/16/2023 [facility] Comment on above: Lab max of 3 days, Daily, for lab use on ly until discontinued starting 10/16/2023 End: 01-01-2025 Basic metabolic 2000 panel - Serum or Plasma Basic Metabolic Panel Lab Routine 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 1 Occurrences starting 01/02/2024 until 01/01/2025 [facility] Comment on above: 1 Occurrences starting 01/02/2024 until 01/01/2025 BiPAP/CPAP/AutoPAP BiPAP/CPAP/Au toPAP Respiratory Care Routine Every 12 hour check until discontinued starting 10/15/2023, 1 completed [facility] Work Phone: Comment on above: Every 12 hour check until discontinued s tarting 10/15/2023, 1 completed CBC panel - Blood by Automated count CBC without diff Lab Routine Lab max of 3 days, Daily, for lab use only until discontinued starting 10/16/2023 [facility] 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 1 Occurrences starting 01/02/2024 until 01/01/2025 [facility] Comment on above: 1 Occurrences starting 01/02/2024 until 01/01/2025 CBC W Auto Different ial panel - Blood CBC auto differential Lab Routine Lab max of 3 days, Daily, for lab use only until discontinued starting 10/15/2023, 4 completed [facility] Comment on above: Lab max of 3 days, Daily, for lab use on ly until discontinued starting 10/15/2023, 4 completed Comprehensive metabo lic 2000 panel - Serum or Plasma Comprehensive metabolic panel Lab Routine Lab max of 3 days, Daily, for lab use only until discontinued starting 10/15/2023, 4 completed [facility] Comment on above: Lab max of 3 days, Daily, for lab use on ly until discontinued starting 10/15/2023, 4 completed End: 10-15-2023 Cryoglobulin W/ Identification [facility] Comment on above: Once for 1 Occurrences starting 10/15/19 until 10/15/2023 End: 10-18-2023 Glomerular Basement Membrane IgG, Serum Glomerular Basement Membrane IgG, Serum Lab Routine Once for 1 Occurrences starting 10/18/2023 until 10/18/2023 [facility] Work Phone: Comment on above: Once for 1 Occurrences starting 10/18/19 until 10/18/2023 Ionized calcium Ionized calcium Lab Routine Lab max of 3 days, Daily, for lab use only until discontinued starting 10/16/2023 [facility] Comment on above: Lab max of 3 days, Daily, for lab use on ly until discontinued starting 10/16/2023 Magnesium [Mass/volu me] in Serum or Plasma Magnesium Lab Routine Lab max of 3 days, Daily, for lab use only until discontinued starting 10/15/2023, 4 completed [facility] Comment on above: Lab max of 3 days, Daily, for lab use on ly until discontinued starting 10/15/2023, 4 completed End: 01-01-2025 Magnesium [Mass/volume] in Serum or Plasma Magnesium Lab Routine 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 1 Occurrences starting 01/02/2024 until 01/01/2025 [facility] Comment on above: 1 Occurrences starting 01/02/2024 until 01/01/2025 End: 10-18-2023 Myeloperoxidase Antibodies, IgG, Serum Myeloperoxidase Antibodies, IgG, Serum Lab Routine Once for 1 Occurrences starting 10/18/2023 until 10/18/2023 [facility] Comment on above: Once for 1 Occurrences starting 10/18/19 until 10/18/2023 Myeloperoxidase IgG Ab [Units/volume] in Serum Myeloperoxidase Antibodies, IgG, Serum Lab Routine 10/18/2023 11:37 AM EDT [facility] Oxygen Therapy - Maintain SpO2: 90%; *LABOR SERVICE REPRESENTATIVE Guidelines for O2: Yes; Document: \[employer]\epi c\EPIC_Reference\Orders\ Respiratory Care Guidelines\CPG Oxygen 2022.pdf Oxygen Therapy - Maintain SpO2: 90%; *LABOR SERVICE REPRESENTATIVE Guidelines for O2: Yes; Document: \[employer]org\epic\ EPIC_Reference\Orders\Resp iratory Care Guidelines\CPG Oxygen 2022.pdf Respiratory Care Routine As Needed until discontinued starting 10/15/2023 [facility] 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 1 Occurrences starting 01/02/2024 until 01/01/2025 [facility] Comment on above: 1 Occurrences starting 01/02/2024 until 01/01/2025 Phosphate [Mass/volu me] in Serum or Plasma Phosphorus Lab Routine Lab max of 3 days, Daily, for lab use only until discontinued starting 10/16/2023, 3 completed [facility] Comment on above: Lab max of 3 days, Daily, for lab use on ly until discontinued starting 10/16/2023, 3 completed End: 01-01-2025 Phosphate [Mass/volume] in Serum or Plasma Phosphorus Lab Routine 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 1 Occurrences starting 01/02/2024 until 01/01/2025 [facility] Comment on above: 1 Occurrences starting 01/02/2024 until 01/01/2025 End: 01-01-2025 Protein creat ratio Protein creat ratio Lab Routine 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 1 Occurrences starting 01/02/2024 until 01/01/2025 [facility] Comment on above: 1 Occurrences starting 01/02/2024 until 01/01/2025 Protein electrophore sis, urine Protein electrophoresis, urine Lab Routine 10/16/2023 10:37 AM EDT [facility] End: 01-01-2025 Urinalysis Urinalysis Lab Routine 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 1 Occurrences starting 01/02/2024 until 01/01/2025 [facility] Comment on above: 1 Occurrences starting 01/02/2024 until 01/01/2025 End: 01-01-2025 Vitamin D 25 hydroxy Vitamin D 25 hydroxy Lab Routine 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 1 Occurrences starting 01/02/2024 until 01/01/2025 [facility] Comment on above: 1 Occurrences starting 01/02/2024 until 01/01/2025 Immunizations Immunization Date Immunization Notes Care Provider Fa cility 01-02-2021 COVID-19 Vaccine, vector-nr, rS-Ad26, PF, 0.5mL Isma Hayward MD Work Phone: [facility] Payers Date Payer Category Payer Medicaid HMO [facility] MEDICAID Member Subscriber Plan / Payer (Effective 2022-Present) Name: Danielle Montana Relation to Subscriber: Self Name: Danielle Montana Payer ID: [id number] (NAIC) Group ID: [id number] Type: Not on file Address: [place] [phone] 2022 [place] Health [place] [facility] [id number] 2022-Present [phone] [address] [place] [phone] [id number] 2022 Medicaid [id number] 2017 Medicaid [id number] [id number] 1959 Private Health Insurance [id number] [id number] 1964 Unknown [id number] 2.16.840.1.854179.3.579. 2.356 1964 Unknown [id number] 2.16.840.1.039121.3.579. 2.173 1964 Unknown [id number] 2.16.840.1.456064.3.579. 2.173 1964 Unknown [id number] 2.16840.1.274663.3.579. 2.173 1964 Unknown [id number] 2.16.840.1.173969.3.579. 2.593 1964 Unknown [id number] 2.16.840.1.735802.3.579. 2.593 1964 Unknown [id number] 2.16.840.1.853421.3.579. 2.593 1964 Unknown [id number] 2.16.840.1.920607.3.579. 2.1286 1964 Unknown [id number] 2.16.840.1.060425.3.579. 2.6 1964 Unknown [id number] 2.16.840.1.159591.3.579. 2.1285 1964 Unknown [id number] 2.16.840.1.798795.3.579. 2.1285 1964 Unknown [id number] 2.16.840.1.356896.3.579. 2.128 1964 Unknown [id number] 2.16.840.1.540471.3.579. 2.1285 1964 Unknown [id number] 2.16.840.1.002721.3.579. 2.1285 1964 Unknown [id number] 2.16.840.1.735280.3.579. 2.1285 1964 Unknown [id number] 2.16.840.1.601927.3.579. 2.128 1964 Unknown [id number] 2.16.840.1.237393.3.579. 2.1285 1964 Unknown [id number] 2.16.840.1.503903.3.579. 2.9 1964 Unknown [id number] 2.16.840.1.956540.3.579. 2.1259 1964 Unknown [id number] 2.16.840.1.593615.3.579. 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) [place] Start: 1965 Sex Assigned At Not on file [place] Exposure to SARS-CoV -2 (event) Not sure [place] Tobacco smoking status Unknown if ever sm [facility] Work Phone: History of tobacco use Passive smoker [facility] Start: 11-02-2023 Alcoholic beverage intake Lifetime non-drinker (finding) [facility] Start: 06-04-2020 End: 11-02-2023 Tobacco use panel [facility] Start: 10-15-2023 End: 01-15-2024 Alcoholic beverage intake Ex-drinker (finding) [facility] Has the Narrative, or [employer] threatened to shut off services in your home in past 12Mo No [facility] How often to you hav e a drink containing alcohol? Never [facility] Average Number of Drinks Not on file [facility] How often to you hav e a drink containing alcohol? Monthly or less [facility] How many standard drinks containing alcohol do you have on a typical day? 1 or 2 [facility] Start: 11-27-2014 Sex Female (finding) [facility] Goals Date Patient Goal [...] List Diagnosis Date Noted Anxiety 11/06/2023 Cancer ([facility]) 11/06/2023 Cervical cancer ([facility]) 11/06/2023 Morbid obesity ([facility]) 11/06/2023 Cluster headache 11/06/2023 Degenerative arthritis 11/06/2023 Dry mouth 11/06/2023 Heartburn 11/06/2023 Joint pain 11/06/2023 Mouth sores 11/06/2023 MRSA (methicillin resistant Staphylococcus aureus) 11/06/2023 Nausea 11/06/2023 Osteoporosis 11/06/2023 Back pain 11/06/2023 Other chest pain 11/06/2023 SOB (shortness of breath) 11/06/2023 Stiff muscles 11/06/2023 Swollen ankles 11/06/2023 Weakness 11/06/2023 Emphysema of lung ([facility]) 11/02/2023 Class 3 severe obesity due to excess calories without serious comorbidity in adult 11/02/2023 Depression 11/02/2023 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 10/31/2023 Microscopic polyangiitis ([facility]) 10/27/2023 B12 deficiency 10/17/2023 Iron deficiency anemia secondary to inadequate dietary iron intake 10/17/2023 Abnormal fasting glucose 10/16/2023 LUTHER (iron deficiency anemia) 10/16/2023 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, psychotic disturbance, mood disturbance, or anxiety ([facility]) 10/16/2023 Right knee pain 10/16/2023 Tear of articular cartilage of right knee, current, initial encounter 10/16/2023 REIN (acute kidney injury) 10/15/2023 Edema of both lower extremities 10/15/2023 Mixed hyperlipidemia 10/15/2023 Hypokalemia 10/15/2023 Bipolar depression ([facility]) 04/26/2023 Chronic rhinitis 04/26/2023 Hyperlipidemia 04/26/2023 Non-recurrent acute suppurative otitis media of both ears without spontaneous rupture of tympanic membranes 04/26/2023 Hyperglycemia, drug-induced 12/26/2020 ADORE (obstructive sleep apnea) 12/26/2020 COPD with acute exacerbation ([facility]) 12/25/2020 Urinary tract infection 02/03/2019 Acute respiratory failure with hypoxia and hypercarbia ([facility]) 01/22/2019 Memory change 02/13/2018 Pneumonia of both lungs due to infectious organism 07/14/2017 Peripheral visual field defect, bilateral 05/31/2017 Visual hallucination 05/31/2017 ARSH (generalized anxiety disorder) 04/13/2017 Open angle with borderline findings and high glaucoma risk in both eyes 01/25/2017 Astigmatism, regular 12/15/2016 Hyperopia 12/15/2016 Presbyopia 12/15/2016 PAD (peripheral artery disease) 12/07/2016 Chest pain on exertion 11/11/2016 Chronic obstructive pulmonary disease ([facility]) 06/07/2016 DNS (deviated nasal septum) 06/07/2016 Dysphonia 06/07/2016 Henry's edema of vocal folds 06/07/2016 Smoking 06/07/2016 Tinnitus of right ear 06/07/2016 Tongue lesion 06/03/2016 Cellulitis of left hand 11/15/2015 Essential hypertension 04/20/2015 Morbid (severe) obesity due to excess calories ([facility]) 11/08/2013 Dysthymic disorder 11/08/2013 Fibromyalgia, primary 11/08/2013 Gastroesophageal reflux disease 01/19/2012 Abnormal cardiovascular stress test 11/19/2024 Abnormal findings on diagnostic imaging of heart and coronary circulation 11/19/2024 Allergies: Allergies[2] AUDITOR/QUALITY/Current Medications: Prescriptions Prior to Admission[3] Current Medications[4] [...] and agreed to proceed. 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 [facility] 12-06-2024 Note No associated orders from this encounter found during lookback period of 72 hours. [facility] 10-08-2024 Note [facility] Cardiology Clinic Note Chief Complaint: Patient here [...] Bumex 1 mg (more content not included)... [facility] 05-20-2024 Note [facility] Cardiology Clinic Note Chief Complaint: Patient here for follow up [facility] for acute CHF. She was discharged from [facility] on losartan and amlodipine but she says she was never provided with RX's for these. She used to see [facility] cardiology back in 2020 for chest [...] problems arise Mehrdad Mccormick MD, MPH, FACC, [facility], [facility] Interventional Cardiology Pager Email: [email or web address] Addendum: The patient is in need of a blood pressure cuff to measure her blood pressure at home and to keep an accurate log. Mehrdad Mccormick MD, MPH, FACC, F (more content not included)... [facility] 03-19-2024 Miscellaneous Notes Called patient and left a voicemail to confirm their upcoming appt on 03/25/24 in [place] with Fran Wild MD. The patient was instructed to call our office back to further confirm: [phone] documented in this encounter [facility] 03-19-2024 Telephone encounter Note Called patient and left a voicemail to confirm their upcoming appt on 03/25/24 in [place] with Fran Wild MD. The patient was instructed to call our office back to further confirm: [phone] [facility] 01-31-2024 History of Present illness Narrative Associated Problem(s): Chronic obstructive pulmonary disease ([facility]) Poorly controlled COPD. Currently taking [...] pt to have CXR completed YVAN. Phoned [facility] radiology to call with results. Advised pt if dyspnea, chest pain, dizziness, or worsening symptoms occur to report to ER immediately. Pt verbalized understanding. Pt was following with Pulmonology in [place] 2 years ago, needs established with new Micro Computer Data Processor. Has hx of ADORE- does not wear [...] Sore throat Was previously seeing Pulmonology in [place], has not been seen in 2 years. Needs to establish with new burr bench operator. Review of Systems Constitutional: Negative for [...] Addressed This Visit Chronic obstructive pulmonary disease ([facility]) - Primary Poorly controlled COPD. [...] understanding. Pt was following with Pulmonology in [place] 2 years ago, needs established with new [employer] Computer Data Processor. Has hx of ADORE- does not wear [...] (ZyrTEC) 10 MG tablet Emphysema of lung ([facility]) Relevant Orders Ambulatory referral to Pulmonology documented in this encounter [facility] 01-31-2024 Instructions Erica Pompa NP - 01/31/2024 2:00 PM EDT Start and finish all medications as prescribed. Have chest X ray completed YVAN Referral sent to pulmonology-Dr. Warner They will call you. If you do not hear from them within 2 weeks, call my office. Worsening shortness of breath, chest pain, gasping for air, dizziness, GO TO ER!!!! documented in this encounter [facility] 01-15-2024 History of Present illness Narrative Images from the original note were not included. OUTPATIENT NEPHROLOGY FOLLOW UP NOTE Date of Service: 01/15/24 PCP: SAHWN ZAMORA MD History of Present Illness Danielle [...] History: Diagnosis Date ERIN (acute kidney injury) ([facility]) 10/18/2023 Anxiety Back pain Cancer ([facility]) cervical cancer approx 1994 Cervical cancer ([facility]) Chest pain Cluster headache COPD (chronic obstructive pulmonary disease) ([facility]) Degenerative arthritis Depression Dry mouth Emphysema Emphysema of lung ([facility]) Fibromyalgia Fibromyalgia, primary GERD (gastroesophageal reflux disease) Heartburn Hypertension Joint pain Morbid obesity ([facility]) Mouth sores MRSA (methicillin resistant Staphylococcus aureus) Nausea Obesity Osteoporosis PAD (peripheral artery disease) ([facility]) PVD (peripheral vascular disease) ([facility]) Sleep apnea cpap SOB (shortness of breath) Stiff muscles Swollen ankles Weakness Surgical History: Past Surgical History: Procedure Laterality Date ABDOMINAL SURGERY BILATERAL SI JOINT INJECTION #1 Bilateral 11/07/2016 Performed by Mony Klein MD at [facility] COLONOSCOPY N/A 10/14/2019 Performed by Eben Lindsay DO at [facility] Coronary angiogram and left ventricular gram/pressure N/A 11/18/2016 Performed by Bobby Stanton MD at [facility] CARDIAC CATH LABS HYSTERECTOMY 06/22/1998 INCISION AND DRAINAGE and irrigation w/Drain LEFT HAND and left elbow Left 11/16/2015 Performed by Kt Ann MD at [facility] TOE AMPUTATION Social History: Social History [...] 10/15/2023 IRONSAT 16 07/17/2017 FERRITIN 45 10/15/2023 [id number] 159 (L) 10/15/2023 [id number] 391 08/15/2014 FOLATE 10.3 10/15/2023 FOLATE 7.6 [...] (Answering service). BRUCE Landon [facility] This note was created with the assistance of a speech-recognition program. Although the intention is to generate a document that actually reflects the content of the visit, no guarantees can be provided that every mistake has been identified and corrected by editing. BRUCE Landon 01/15/24 1530 BRUCE Landon 01/15/24 1531 documented in this encounter [facility] 01-04-2024 Miscellaneous Notes ----- Message from GAMAL Mccray sent at 01/02/2024 1:46 PM EDT ----- This patient will need added to next weeks add on clinic. She was never seen after hospital d/c in October and she is on rituxan. Ill put her labs in [facility] LM to schedule f/u. documented in this encounter [facility] 01-04-2024 Telephone encounter Note ----- Message from GAMAL Mccray sent at 01/02/2024 1:46 PM EDT ----- This patient will need added to next weeks add on clinic. She was never seen after hospital d/c in October and she is on rituxan. Ill put her labs in [facility] P[facility] 01-04-2024 Telephone encounter Note LM to schedule f/u. [facility] 11-29-2023 History of Present illness Narrative [...] stable ambulatory condition. documented in this encounter [facility] 10-18-2023 Plan of care note Problem: Pain Goal: Patient goal is pain score less than 4, able to rest, and participant in treatment plan as appropriate Description: INTERVENTIONS: 1. Encourage patient or legal account retention representative to report early pain and ask [...] per policy 9. Teach patient or legal account retention representative interventions for comforting Outcome: Progressing Note: [...] at the bedside 7. Instruct patient/ patient account retention representative about use of safety devices 8. Include patient/ patient account retention representative in decisions related to safety Outcome: Progressing Note: Evaluation of progress towards goal: call light within reach, bed to lowest position [facility] 10-18-2023 Miscellaneous Notes Problem: Pain Goal: Patient goal is pain score less than 4, able to rest, and participant in treatment plan as appropriate Description: INTERVENTIONS: 1. Encourage patient or legal account retention representative to report early pain and ask [...] per policy 9. Teach patient or legal account retention representative interventions for comforting Outcome: Progressing Note: [...] at the bedside 7. Instruct patient/ patient account retention representative about use of safety devices 8. Include patient/ patient account retention representative in decisions related to safety Outcome: Progressing Note: Evaluation of progress towards goal: call light within reach, bed to lowest position DISCHARGE PLANNING NOTE Danielle Montana Bullion Weigher conducted a visit at patient bedside. Patient ws updated on transfer process. We discussed that we did find her a new physician, Shawn Zamora in [place], [place]. It is on patient's AVS for time of discharge. Patient Discharge Plan: Home with self care. New physician will be Dr. Shawn Zamora in [place], [place]. [phone]. Patient is to call at time of [...] that there are some limitations compared to oyri-te-jbtx evaluations. We elected to proceed. Nephrology Daily [...] dapsone and atovaquone are not available in [facility]. Patient is allergic to Bactrim. 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 Once the patient is at [facility] will start PJP prophylaxis with atovaquone 0 or dapsone. Strict Is&Os. Do not start anticoagulation or antiplatelet therapy without notify Nephrology as patient will need kidney biopsy Irving Flores M.D. [facility] Thank you for your consultation and allowing us to participate in the care of Danielle Montana and please do not hesitate to call us with any questions at: Office: [phone] Office Answering Service: [phone] Please feel free to contact me through [employer] Secure chat during the daytime hours, if [...] Description: INTERVENTIONS: 1. Encourage patient or legal account retention representative to report early pain and ask [...] per policy 9. Teach patient or legal account retention representative interventions for comforting Outcome: Progressing Note: [...] at the bedside 7. Instruct patient/ patient account retention representative about use of safety devices 8. Include patient/ patient account retention representative in decisions related to safety Outcome: Progressing Note: Evaluation of progress towards goal: PT is free of falls, hourly rounding is completed, area is kept clear. Problem: Knowledge Deficit Goal: Patient/patient account retention representative demonstrates understanding of disease process, treatment [...] at the bedside 7. Instruct patient/ patient account retention representative about use of safety devices 8. Include patient/ patient account retention representative in decisions related to safety Outcome: Progressing Note: Evaluation of progress towards goal: Pt oriented to own abilities. Adequate lighting, area clear of hazards. Problem: Knowledge Deficit Goal: Patient/patient account retention representative demonstrates understanding of disease process, treatment [...] Score of =/> 25 or indicated by [facility] Assessment Goal: Patient should be free from fall Description: Interventions: 1. [place] to environment 2. Hourly rounds addressing the [...] non-skid footwear 11. Teach patient and patient account retention representative to maintain environment for safety and [...] (cane, walker) within reach 19. Request patient account retention representative bring adaptive equipment/mobility aids from home or obtain and provide as needed 20. Consult pharmacy regarding effects of med's affecting mobility, cognition, and alternatives 21. Obtain physician order for PT if risk factors associated with mobility are present 22. Obtain physician order for OT as appropriate 23. Utilize diversional activities 24. Educate patient and patient account retention representative how to maintain a safe environment during visitation times (notify nurse prior to leaving bedside) 25. Consider appropriateness of medical or non-medical staff services coordinator 26. Set up voiding schedule as appropriate [...] that there are some limitations compared to sboy-kv-jrol evaluations. We elected to proceed. Nephrology Daily [...] ratio is 4.7 g/g. SAUL is pending. Uosq-qhvgdd-bkaeiuag DNA is pending. Anca is pending. Glomerular [...] workup Irving Flores M.D. [facility] Thank you for your consultation and allowing us to participate in the care of Danielle Montana and please do not hesitate to call us with any questions at: Office: [phone] Office Answering Service: [phone] Please feel free to contact me through [employer] Secure chat during the daytime hours, if [...] Description: INTERVENTIONS: 1. Encourage patient or legal account retention representative to report early pain and ask [...] per policy 9. Teach patient or legal account retention representative interventions for comforting Outcome: Progressing Note: [...] at the bedside 7. Instruct patient/ patient account retention representative about use of safety devices 8. Include patient/ patient account retention representative in decisions related to safety Outcome: Progressing Note: Evaluation of progress towards goal: Patient will remain safe and free from injury. Problem: Low Risk Fall Score Description: Flores Fall Score of 0 - 24 or indicated by [facility] Assessment Goal: Patient should be free from fall Description: Interventions: 1. [place] to environment 2. Hourly rounds addressing the [...] non-skid footwear 11. Teach patient and patient account retention representative to maintain environment for safety and [...] at the bedside 7. Instruct patient/ patient account retention representative about use of safety devices 8. Include patient/ patient account retention representative in decisions related to safety Outcome: [...] Description: INTERVENTIONS: 1. Encourage patient or legal account retention representative to report early pain and ask [...] per policy 9. Teach patient or legal account retention representative interventions for comforting Outcome: Progressing Note: [...] at the bedside 7. Instruct patient/ patient account retention representative about use of safety devices 8. Include patient/ patient account retention representative in decisions related to safety Outcome: [...] hygiene technique 7. Identify and instruct patient/patient account retention representative in use of appropriate isolation precautions for identified infection/symptoms 8. Provide and discuss with patient/patient account retention representative on educational MDRO sheet 9. Encourage and monitor nutritional status daily and consult clerical and office support workers if indicated 10. Implement neutropenic guidelines as [...] that there are some limitations compared to todf-qw-zsjb evaluations. We elected to proceed. Nephrology Daily [...] chain ratio is 0.9 SAUL is pending. Imke-tfokyo-eqavmira DNA is pending. Anca is pending. Glomerular [...] outpatient Irving Flores M.D. [facility] Thank you for your consultation and allowing us to participate in the care of Danielle Montana and please do not hesitate to call us with any questions at: Office: [phone] Office Answering Service: [phone] Please feel free to contact me through [employer] Secure chat during the daytime hours, if [...] of assessment Discharge Planning Assessment completed at [facility]. Director Of Vendor Management identified self and role to the patient. Patient is agreeable to the assessment and discussion of a safe discharge plan. 10/16/23 0915 Discharge Disposition Discharge Disposition Home with Self Care County Information County of Residence [place] Patient Information Primary Caregiver Self Support System [...] of Residence Private residence Private Residence 1 [place] Res[place] Accessibility Steps into home Number of Steps 2 Home Care Services No Community Agencies Currently Utilized [employer] [place] (Patient states she does her own cooking [...] DC Assessment Completed: Yes Pharmacy: [facility] in [place], [place]. [facility] to use [facility]. PCP: [...] Description: INTERVENTIONS: 1. Encourage patient or legal account retention representative to report early pain and ask [...] per policy 9. Teach patient or legal account retention representative interventions for comforting Outcome: Progressing Note: Evaluation of progress towards goal: Pt able to report pain according to 0/10 pain scale. Medicating patient for pain per orders. Problem: Pain Goal: Patient goal is pain score less than 4, able to rest, and participant in treatment plan as appropriate Description: INTERVENTIONS: 1. Encourage patient or legal account retention representative to report early pain and ask [...] per policy 9. Teach patient or legal account retention representative interventions for comforting Outcome: Progressing Note: Evaluation of progress towards goal: Pt able to report pain according to 0/10 pain scale. Medicating patient for pain per orders. Problem: Knowledge Deficit Goal: Patient/patient account retention representative demonstrates understanding of disease process, treatment [...] Consult: Elevated creatinine Referring Provider: Kristina Robles APRN-SUPERVISOR TYPE PHOTOGRAPHY PCP: PCP Not In System Chief Complaint: [...] call us with any questions at: Office: [phone] Office Answering Service: [phone] Fran Wild M.D. This note was created [...] that there are some limitations compared to gylz-sv-feya evaluations. We elected to proceed. Problem: Knowledge Deficit Goal: Patient/patient account retention representative demonstrates understanding of disease process, treatment [...] Description: INTERVENTIONS: 1. Encourage patient or legal account retention representative to report early pain and ask [...] per policy 9. Teach patient or legal account retention representative interventions for comforting Outcome: Progressing Note: [...] at the bedside 7. Instruct patient/ patient account retention representative about use of safety devices 8. Include patient/ patient account retention representative in decisions related to safety Outcome: Progressing Note: Evaluation of progress towards goal: ongoing. Problem: Knowledge Deficit Goal: Patient/patient account retention representative demonstrates understanding of disease process, treatment plan, medications, and discharge instructions Description: INTERVENTIONS 1. Complete learning assessment and assess knowledge base 2. Provide teaching at level of understanding 3. Provide teaching via preferred learning method(s) Outcome: Progressing Note: Evaluation of progress towards goal: ongoing. documented in this encounter [facility] 10-18-2023 Progress note Formatting of t his note might be different from the original. DISCHARGE PLANNING NOTE Danielle Montana Bullion Weigher conducted a visit at patient bedside. Patient ws updated on transfer process. We discussed that we did find her a new physician, Shawn Zamora in [place], [place]. It is on patient's AVS for time of discharge. Patient Discharge Plan: Home with self care. New physician will be Dr. Shawn Zaomra in [place], [place]. [phone]. Patient is to call at time of discharge to schedule appointments as below. Schedule a follow up appointment with new PCP for 7-10 days. Schedule a new patient appointment with new PCP as available. - Silvana Conklin RN 10/18/23 11:22 AM [facility] 10-18-2023 Hospital course Narrative Images from the original note were not included. [facility] Hospital Medicine Discharge Summary Patient: Danielle Montana Date of : 1965 Room: [facility]/ Encounter date: 10/18/23 DATE OF ADMISSION: 10/14/2023 DATE OF DISCHARGE:10/18/2023 DISCHARGE DIAGNOSES Principal Problem: ERIN (acute kidney injury) ([facility]) Active Problems: Chronic obstructive pulmonary disease ([facility]) Hypertension ADORE (obstructive sleep apnea) Hypokalemia Edema of both lower extremities Mixed hyperlipidemia Abnormal fasting glucose LUTHER (iron deficiency anemia) Bipolar depression ([facility]) 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, psychotic disturbance, mood disturbance, or anxiety ([facility]) Iron deficiency anemia secondary to inadequate dietary [...] Protein Urine Random 1,270 (H) <120 mg/L U/Pro/Developmental Education Instructor Ratio Calc 4.72 (H) <0.2 Microalbumin - [...] PM DISCHARGE ASSESSMENT & PLAN Transfer to [facility] per Nephrology DISCHARGE INSTRUCTION Disposition: [facility] Condition: Stable Activity: activity as tolerated [...] 7AM-7PM (all facilities): [facility] 7PM-7AM ([facility]): Gavin or simon, [phone]. 7PM-7AM ([facility] [place] EpicChat or page through [employer]. This note is dictated with the use of M*Modal. Please note that this dictation was completed with computer voice recognition software. Quite often unanticipated grammatical, syntax, homophones, and other interpretive errors are inadvertently transcribed by the computer software. Please disregard these errors. Please excuse any errors that have escaped final proofreading. Antione Santa, SENIOR CONSTRUCTION ESTIMATOR-SUPERVISOR TYPE PHOTOGRAPHY 10/18/23 1106 I have seen and evaluated the patient, and have reviewed the history above and agree. I have repeated the vázquez portions of the physical exam and concur with the DEREK findings. I have reviewed all laboratory findings and imaging reports/films. I agree with the plan as noted above. Isma hayward documented in this encounter [facility] 10-18-2023 Progress note Formatting of t [...] that there are some limitations compared to jzbu-yk-bcmq evaluations. We elected to proceed. Nephrology Daily [...] dapsone and atovaquone are not available in [facility]. Patient is allergic to Bactrim. 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 Once the patient is at [facility] will start PJP prophylaxis with atovaquone 0 or dapsone. Strict Is&Os. Do not start anticoagulation or antiplatelet therapy without notify Nephrology as patient will need kidney biopsy Irving Flores M.D. [facility] Thank you for your consultation and allowing us to participate in the care of Danielle Montana and please do not hesitate to call us with any questions at: Office: [phone] Office Answering Service: [phone] Please feel free to contact me through [employer] Secure chat during the daytime hours, if no response after 5 minutes then call the answering service. This note was created with the assistance of a speech-recognition program. Although the intention is to generate a document that actually reflects the content of the visit, no guarantees can be provided that every mistake has been identified and corrected by editing. [employer] Work Phone: 10-18-2023 Plan of care note Problem: Pain Goal: Patient goal is pain score less than 4, able to rest, and participant in treatment plan as appropriate Description: INTERVENTIONS: 1. Encourage patient or legal account retention representative to report early pain and ask [...] per policy 9. Teach patient or legal account retention representative interventions for comforting Outcome: Progressing Note: [...] at the bedside 7. Instruct patient/ patient account retention representative about use of safety devices 8. Include patient/ patient account retention representative in decisions related to safety Outcome: Progressing Note: Evaluation of progress towards goal: PT is free of falls, hourly rounding is completed, area is kept clear. Problem: Knowledge Deficit Goal: Patient/patient account retention representative demonstrates understanding of disease process, treatment plan, medications, and discharge instructions Description: INTERVENTIONS 1. Complete learning assessment and assess knowledge base 2. Provide teaching at level of understanding 3. Provide teaching via preferred learning method(s) Outcome: Progressing Note: Evaluation of progress towards goal: Learning assessment and knowledge base assessed, teaching provided at an understandable level as needed. [facility] 10-18-2023 Plan of care note Problem: Safety [...] at the bedside 7. Instruct patient/ patient account retention representative about use of safety devices 8. Include patient/ patient account retention representative in decisions related to safety Outcome: Progressing Note: Evaluation of progress towards goal: Pt oriented to own abilities. Adequate lighting, area clear of hazards. Problem: Knowledge Deficit Goal: Patient/patient account retention representative demonstrates understanding of disease process, treatment [...] Score of =/> 25 or indicated by [facility] Assessment Goal: Patient should be free from fall Description: Interventions: 1. [place]cano to environment 2. Hourly rounds addressing the [...] non-skid footwear 11. Teach patient and patient account retention representative to maintain environment for safety and [...] (cane, walker) within reach 19. Request patient account retention representative bring adaptive equipment/mobility aids from home or obtain and provide as needed 20. Consult pharmacy regarding effects of med's affecting mobility, cognition, and alternatives 21. Obtain physician order for PT if risk factors associated with mobility are present 22. Obtain physician order for OT as appropriate 23. Utilize diversional activities 24. Educate patient and patient account retention representative how to maintain a safe environment during visitation times (notify nurse prior to leaving bedside) 25. Consider appropriateness of medical or non-medical staff services coordinator 26. Set up voiding schedule as appropriate (every 2 hours) Outcome: Progressing Note: Evaluation of progress towards goal: Pt oriented to own abilities. Adequate lighting, area clear of hazards. [facility] 10-17-2023 History of Present illness Narrative 24 hour urine collection labeled and walked to lab by Deepa Chinchilla Stool sample as ordered collected, ;labeled, and sent to the lab. Images from the original note were not included. [facility] INTERNAL MEDICINE [facility] [address] [place] [id number] Hospital Medicine Progress Note Patient: Danielle Montana [...] LIST Principal Problem: ERIN (acute kidney injury) ([facility]) Active Problems: Chronic obstructive pulmonary disease ([facility]) Hypertension ADORE (obstructive sleep apnea) Hypokalemia Edema of both lower extremities Mixed hyperlipidemia Abnormal fasting glucose LUTHER (iron deficiency anemia) Bipolar depression ([facility]) 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, psychotic disturbance, mood disturbance, or anxiety ([facility]) Iron deficiency anemia secondary to [...] prelim negative Hypokalemia -Supplement today is 3.6 -rubber and pounder -Monitor electrolytes daily replace per protocol. -continue [...] Cohen APRN-TELLY 10/17/2023 1:[address] [facility] Internal Medicine 7AM-7PM (all facilities): EpicMaria Rt or page through Smart Adventure. 7PM-7AM ([facility], [facility] and [facility]patient Rehab): EpicChat or page, [phone]. 7PM-7AM ([place], [place], [place], [place] and [facility] Rehab): EpicChat or page through Smart Adventure. Nataliia Cohen APRN-SUPERVISOR TYPE PHOTOGRAPHY 10/17/23 1320 I have seen and evaluated [...] from the original note were not included. [facility] [address] [facility] [phone] Hospital Medicine Progress Note Patient: Danielle Montana [...] LIST Principal Problem: ERIN (acute kidney injury) ([facility]) Active Problems: Chronic obstructive pulmonary disease ([facility]) Hypertension ADORE (obstructive sleep apnea) Hypokalemia Edema of both lower extremities Mixed hyperlipidemia Abnormal fasting glucose LUTHER (iron deficiency anemia) Bipolar depression ([facility]) 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, psychotic disturbance, mood disturbance, or anxiety ([facility]) ASSESSMENT & PLAN ERIN -Stopped IV hydration [...] leg dopplers Hypokalemia -Supplement today is 3.2 -rubber and pounder -Monitor electrolytes daily replace per protocol. -continue [...] of diuresis. BRUCE Maria 10/16/2023 7:56 AM [facility] Ángel [facility] Internal Medicine 7AM-7PM (all facilities): EpicChat or page through Smart Adventure. 7PM-7AM ([facility], [facility] and [facility]patient Rehab): EpicChat or page, [phone]. 7PM-7AM ([place], [place], [place], [place] and [facility] Rehab): EpicChat or page through Blue Dot Worldera. BRUCE Maria 10/16/23 6941 I have seen and evaluated the patient, [...] 10/16/2023 1:58 PM documented in this encounter [facility] 10-17-2023 Hospital Discharge instructions Geetha Zamudio - 10/17/2023 11:47 AM EDT YOUR SCHEDULED APPOINTMENTS Please make note of this in your schedule as to not miss or call to reschedule. Thank you! Please call office to schedule a NEW patient appointment with Dr. Shawn Zamora MD Address: [address] [place] [id number] Pt. should bring the following to appointment; [...] For NEW patients, MD will not prescribe terminal computer operator pain medication. documented in this encounter [facility] 10-17-2023 Progress note Formatting of t his [...] that there are some limitations compared to epid-ea-kihc evaluations. We elected to proceed. Nephrology Daily [...] ratio is 4.7 g/g. SAUL is pending. Pczc-jaxgqu-weadurug DNA is pending. Anca is pending. Glomerular [...] workup Irving Flores M.D. [facility] Thank you for your consultation and allowing us to participate in the care of Danielle Montana and please do not hesitate to call us with any questions at: Office: [phone] Office Answering Service: [phone] Please feel free to contact me through LK FREEMAN Secure chat during the daytime hours, if no response after 5 minutes then call the answering service. This note was created with the assistance of a speech-recognition program. Although the intention is to generate a document that actually reflects the content of the visit, no guarantees can be provided that every mistake has been identified and corrected by editing. [facility] 10-17-2023 Plan of care note Problem: Pain Goal: Patient goal is pain score less than 4, able to rest, and participant in treatment plan as appropriate Description: INTERVENTIONS: 1. Encourage patient or legal account retention representative to report early pain and ask [...] per policy 9. Teach patient or legal account retention representative interventions for comforting Outcome: Progressing Note: [...] at the bedside 7. Instruct patient/ patient account retention representative about use of safety devices 8. Include patient/ patient account retention representative in decisions related to safety Outcome: Progressing Note: Evaluation of progress towards goal: Patient will remain safe and free from injury. Problem: Low Risk Fall Score Description: Flores Fall Score of 0 - 24 or indicated by [facility] Assessment Goal: Patient should be free from fall Description: Interventions: 1. [place]cano to environment 2. Hourly rounds addressing the [...] non-skid footwear 11. Teach patient and patient account retention representative to maintain environment for safety and engage in all aspects of fall prevention program Outcome: Progressing Note: Evaluation of progress towards goal: Patient will remain free from falls. [facility] 10-17-2023 Plan of care note Problem: [...] at the bedside 7. Instruct patient/ patient account retention representative about use of safety devices 8. Include patient/ patient account retention representative in decisions related to safety Outcome: [...] self. Will assist in reposition when needed. [facility] 10-16-2023 Plan of care note Problem: Pain Goal: Patient goal is pain score less than 4, able to rest, and participant in treatment plan as appropriate Description: INTERVENTIONS: 1. Encourage patient or legal account retention representative to report early pain and ask [...] per policy 9. Teach patient or legal account retention representative interventions for comforting Outcome: Progressing Note: [...] at the bedside 7. Instruct patient/ patient account retention representative about use of safety devices 8. Include patient/ patient account retention representative in decisions related to safety Outcome: [...] hygiene technique 7. Identify and instruct patient/patient account retention representative in use of appropriate isolation precautions for identified infection/symptoms 8. Provide and discuss with patient/patient account retention representative on educational MDRO sheet 9. Encourage and monitor nutritional status daily and consult clerical and office support workers if indicated 10. Implement neutropenic guidelines as [...] patient is diuresing, nephro consulted. I/O's continued. [facility] 10-16-2023 Progress note Formatting of t [...] that there are some limitations compared to scgj-ii-tlkt evaluations. We elected to proceed. Nephrology Daily [...] chain ratio is 0.9 SAUL is pending. Dniy-miegwz-cmyycoab DNA is pending. Anca is pending. Glomerular [...] outpatient Irving Flores M.D. [facility] Thank you for your consultation and allowing us to participate in the care of Danielle Montana and please do not hesitate to call us with any questions at: Office: [phone] Office Answering Service: [phone] Please feel free to contact me through LK FREEMAN Secure chat during the daytime hours, if no response after 5 minutes then call the answering service. This note was created with the assistance of a speech-recognition program. Although the intention is to generate a document that actually reflects the content of the visit, no guarantees can be provided that every mistake has been identified and corrected by editing. [facility] 10-16-2023 Progress note Formatting of t his note is different from the original. Images from the original note were not included. DISCHARGE PLANNING NOTE Discharge Planning Assessment Danielle Montana Admit Status: Inpatient Meet: Unknown Readmission Risk: 15%. Date of Admission: 10/14/2023 GMLOS: not available at time of assessment Target Discharge Date: not available at time of assessment Discharge Planning Assessment completed at [facility]. Director Of Vendor Management identified self and role to the patient. Patient is agreeable to the assessment and discussion of a safe discharge plan. 10/16/23 0915 Discharge Disposition Discharge Disposition Home with Self Care County Information County of Residence [place] Patient Information Primary Caregiver Self Support System [...] of Residence Private residence Private Residence 1 [place] Res[place] Accessibility Steps into home Number of Steps 2 Home Care Services No Community Agencies Currently Utilized [employer] [place] (Patient states she does her own cooking [...] DC Assessment Completed: Yes Pharmacy: [facility] in [place], [place]. Used to use [facility]. PCP: [...] - Silvana Conklin RN 10/16/23 11:30 AM [facility] 10-15-2023 Plan of care note Problem: Pain Goal: Patient goal is pain score less than 4, able to rest, and participant in treatment plan as appropriate Description: INTERVENTIONS: 1. Encourage patient or legal account retention representative to report early pain and ask [...] per policy 9. Teach patient or legal account retention representative interventions for comforting Outcome: Progressing Note: Evaluation of progress towards goal: Pt able to report pain according to 0/10 pain scale. Medicating patient for pain per orders. [facility] 10-15-2023 Plan of care note Problem: Pain Goal: Patient goal is pain score less than 4, able to rest, and participant in treatment plan as appropriate Description: INTERVENTIONS: 1. Encourage patient or legal account retention representative to report early pain and ask [...] per policy 9. Teach patient or legal account retention representative interventions for comforting Outcome: Progressing Note: Evaluation of progress towards goal: Pt able to report pain according to 0/10 pain scale. Medicating patient for pain per orders. Problem: Knowledge Deficit Goal: Patient/patient account retention representative demonstrates understanding of disease process, treatment [...] goal: Continue to assess for when appropriate. [facility] 10-15-2023 Consult note Formatting of th is [...] call us with any questions at: Office: [phone] Office Answering Service: [phone] Fran Wild M.D. This note was created [...] that there are some limitations compared to vius-gk-ksql evaluations. We elected to proceed. [facility] Work Phone: 10-15-2023 History and physical note Images from the original note were not included. [facility] INTERNAL MEDICINE Hospital Medicine History & Physical Patient: Danielle Montana Date of : 1965 Room: [facility] PCP: PCP Not In System Admission date: [...] medical history of Anxiety, Back pain, Cancer ([facility]), Cervical cancer ([facility]), Chest pain, Cluster headache, COPD (chronic obstructive pulmonary disease) ([facility]), Degenerative arthritis, Depression, Dry mouth, Emphysema, Emphysema of lung ([facility]), Fibromyalgia, Fibromyalgia, primary, GERD (gastroesophageal reflux disease), Heartburn, Hypertension, Joint pain, Morbid obesity ([facility]), Mouth sores, MRSA (methicillin resistant Staphylococcus aureus), Nausea, Obesity, Osteoporosis, PAD (peripheral artery disease) ([facility]), PVD (peripheral vascular disease) ([facility]), Sleep apnea, SOB (shortness of breath), Stiff [...] LIST Principal Problem: ERIN (acute kidney injury) ([facility]) Active Problems: Chronic obstructive pulmonary disease ([facility]) Hypertension ADORE (obstructive sleep apnea) Hypokalemia Edema of both lower extremities Mixed hyperlipidemia ASSESSMENT & PLAN ERIN: Gentle hydration. Nephrology consult. Monitor kidney function daily. Edema both lower extremities: Monitor daily weight and I&O. Echocardiogram ordered. Nephrology consult help with diuresis/fluid balance. Hypokalemia: Supplement. cognos bi developer. Monitor electrolytes daily replace per protocol. COPD: [...] APRN-TELLY, 10/15/2023 8:35 AM [facility] Internal Medicine 7AM-7PM (all facilities): EpicChat or page through Vocera. 7PM-7AM ([facility], [facility]iat[facility] and Inpatient Rehab): EpicChat or page, [phone]. 7PM-7AM ([place], [place], [place], [place] and [facility] Re[facility]): EpicChat or page [...] above, unless otherwise noted. DRE JEWELL MD [facility] Work Phone: 10-15-2023 History and physical note Images from the original note were not included. [facility] INTERNAL MEDICINE Hospital Medicine History & Physical Patient: Danielle Montana Date of : 1965 Room: [facility] PCP: PCP Not In System Admission date: [...] medical history of Anxiety, Back pain, Cancer ([facility]), Cervical cancer ([facility]), Chest pain, Cluster headache, COPD (chronic obstructive pulmonary disease) ([facility]), Degenerative arthritis, Depression, Dry mouth, Emphysema, Emphysema of lung ([facility]), Fibromyalgia, Fibromyalgia, primary, GERD (gastroesophageal reflux disease), Heartburn, Hypertension, Joint pain, Morbid obesity ([facility]), Mouth sores, MRSA (methicillin resistant Staphylococcus aureus), Nausea, Obesity, Osteoporosis, PAD (peripheral artery disease) ([facility]), PVD (peripheral vascular disease) ([facility]), Sleep apnea, SOB (shortness of breath), Stiff [...] LIST Principal Problem: ERIN (acute kidney injury) ([facility]) Active Problems: Chronic obstructive pulmonary disease ([facility]) Hypertension ADORE (obstructive sleep apnea) Hypokalemia Edema of both lower extremities Mixed hyperlipidemia ASSESSMENT & PLAN ERIN: Gentle hydration. Nephrology consult. Monitor kidney function daily. Edema both lower extremities: Monitor daily weight and I&O. Echocardiogram ordered. Nephrology consult help with diuresis/fluid balance. Hypokalemia: Supplement. cognos bi developer. Monitor electrolytes daily replace per protocol. COPD: [...] Santa APRN-TELLY, 10/15/2023 8:[address] [facility] Internal Medicine 7AM-7PM (all facilities): EpicChat or page through Vocera. 7PM-7AM ([facility], [facility]iat[facility] and Inpatient Re[facility]): EpicChat or page, [phone]. 7PM-7AM ([place], [place], [place], [place] and [facility]): EpicChat or page [...] DRE JEWELL MD documented in this encounter [facility] 10-15-2023 Plan of care note Problem: Knowledge Deficit Goal: Patient/patient account retention representative demonstrates understanding of disease process, treatment [...] goal: Continue to assess for when appropriate. [facility] 10-15-2023 Plan of care note Problem: Pain Goal: Patient goal is pain score less than 4, able to rest, and participant in treatment plan as appropriate Description: INTERVENTIONS: 1. Encourage patient or legal account retention representative to report early pain and ask [...] per policy 9. Teach patient or legal account retention representative interventions for comforting Outcome: Progressing Note: [...] at the bedside 7. Instruct patient/ patient account retention representative about use of safety devices 8. Include patient/ patient account retention representative in decisions related to safety Outcome: Progressing Note: Evaluation of progress towards goal: ongoing. Problem: Knowledge Deficit Goal: Patient/patient account retention representative demonstrates understanding of disease process, treatment plan, medications, and discharge instructions Description: INTERVENTIONS 1. Complete learning assessment and assess knowledge base 2. Provide teaching at level of understanding 3. Provide teaching via preferred learning method(s) Outcome: Progressing Note: Evaluation of progress towards goal: ongoing. [facility] 10-14-2023 Emergency department Triage note Bilateral hand/feet swelling, cough, headache [facility] 10-14-2023 Emergency department Note Bilateral hand/feet [...] History: Diagnosis Date Anxiety Back pain Cancer ([facility]) cervical cancer approx 1994 Cervical cancer ([facility]) Chest pain Cluster headache COPD (chronic obstructive pulmonary disease) ([facility]) Degenerative arthritis Depression Dry mouth Emphysema Emphysema of lung ([facility]) Fibromyalgia Fibromyalgia, primary GERD (gastroesophageal reflux disease) Heartburn Hypertension Joint pain Morbid obesity ([facility]) Mouth sores MRSA (methicillin resistant Staphylococcus aureus) Nausea Obesity Osteoporosis PAD (peripheral artery disease) ([facility]) PVD (peripheral vascular disease) ([facility]) Sleep apnea cpap SOB (shortness of breath) Stiff muscles Swollen ankles Weakness Past Surgical History: Procedure Laterality Date ABDOMINAL SURGERY BILATERAL SI JOINT INJECTION #1 Bilateral 11/07/2016 Performed by Mony Klein MD at [facility] COLONOSCOPY N/A 10/14/2019 Performed by Eben Lindsay DO at [facility] Coronary angiogram and left ventricular gram/pressure N/A 11/18/2016 Performed by Bobby Stanton MD at [facility] HYSTERECTOMY 06/22/1998 INCISION AND DRAINAGE and irrigation w/Drain LEFT HAND and left elbow Left 11/16/2015 Performed by Kt Ann MD at [facility] Travel Screening No screening [...] as of 10/15/2340 ERIN (acute kidney injury) ([facility]) Hypertensive urgency Hypokalemia Elevated brain natriuretic peptide (BNP) level MDM Medical Decision Making INanette (scribe) documented for Dr. Elliott. Chief Complaint: Leg swelling, arm swelling, nausea and a cough Differential Diagnosis includes but is not limited to: CHF exacerbation, hypertensive urgency, anemia, electrolyte derangement, ID. Plan of Care: Dr. Elliott ordered Troponin [...] is pending admission. 41 -- Niya Robles PUMPMAN accepts patient under Dr Jewell. Patient to [...] None Diagnosis: 1. ERIN (acute kidney injury) ([facility]) 2. Hypertensive urgency 3. Hypokalemia 4. Elevated brain natriuretic peptide (BNP) level Disposition: Patient's disposition: Admit Patient's condition is stable. Provider Statement By electronically signing this emergency patient record, the Emergency Physician/PUMPMAN/PA-C attests that all entries made into the electronic medical record by patrick Hall prior to the Physician/PUMPMAN/PA-C signature reflect an accurate accounting of the evaluation and care rendered by that Emergency Physician/PUMPMAN/PA-C. The Emergency Physician/PUMPMAN/PA-C assumes full responsibility for those entries. The Emergency Physician/PUMPMAN/PA-C also attests that any patient testing or treatment that was instituted by nursing staff in accordance to Emergency Department Preemptive Guidelines have been reviewed and unless so stated elsewhere in this patient chart, the Physician/PUMPMAN/PA-C agrees with the testing and care provided. No Additional Attestations Nanette Hernandez 10/14/23 2210 Nanette Hernandez 10/14/23 2234 Alexis Elliott DO 10/14/23 2237 Nanette Hernandez 10/14/23 2240 Nanette Hernandez 10/14/23 2326 Nanette Hernandez 10/14/23 2358 Gillian Cordero MD 10/15/23 0043 Alexis Elliott DO 10/15/23 0401 documented in this encounter [facility] 10-14-2023 Physician Emergency department Note Images [...] History: Diagnosis Date Anxiety Back pain Cancer ([facility]) cervical cancer approx 1994 Cervical cancer ([facility]) Chest pain Cluster headache COPD (chronic obstructive pulmonary disease) ([facility]) Degenerative arthritis Depression Dry mouth Emphysema Emphysema of lung ([facility]) Fibromyalgia Fibromyalgia, primary GERD (gastroesophageal reflux disease) Heartburn Hypertension Joint pain Morbid obesity ([facility]) Mouth sores MRSA (methicillin resistant Staphylococcus aureus) Nausea Obesity Osteoporosis PAD (peripheral artery disease) ([facility]) PVD (peripheral vascular disease) ([facility]) Sleep apnea cpap SOB (shortness of breath) Stiff muscles Swollen ankles Weakness Past Surgical History: Procedure Laterality Date ABDOMINAL SURGERY BILATERAL SI JOINT INJECTION #1 Bilateral 11/07/2016 Performed by Mony Klein MD at [facility] COLONOSCOPY N/A 10/14/2019 Performed by Eben Lindsay DO at [facility] Coronary angiogram and left ventricular gram/pressure N/A 11/18/2016 Performed by Bobby Stanton MD at [facility] HYSTERECTOMY 06/22/1998 INCISION AND DRAINAGE and irrigation w/Drain LEFT HAND and left elbow Left 11/16/2015 Performed by Kt Ann MD at [facility] TOE AMPUTATION Travel Screening No screening [...] of 10/15/23 0041 Sat Oct 14, 2023 4940 Pain Score: 8 [KM] ED Course User [...] CHF exacerbation, hypertensive urgency, anemia, electrolyte derangement, ID. Plan of Care: Dr. Elliott ordered Troponin [...] is pending admission. 0042 -- Niya Robles PUMPMAN accepts patient under Dr Jewell. Patient to [...] None Diagnosis: 1. ERIN (acute kidney injury) ([facility]) 2. Hypertensive urgency 3. Hypokalemia 4. Elevated brain natriuretic peptide (BNP) level Disposition: Patient's disposition: Admit Patient's condition is stable. Provider Statement By electronically signing this emergency patient record, the Emergency Physician/PUMPMAN/PA-C attests that all entries made into the electronic medical record by patrick Hall prior to the Physician/PUMPMAN/PA-C signature reflect an accurate accounting of the evaluation and care rendered by that Emergency Physician/PUMPMAN/PA-C. The Emergency Physician/PUMPMAN/PA-C assumes full responsibility for those entries. The Emergency Physician/PUMPMAN/PA-C also attests that any patient testing or treatment that was instituted by nursing staff in accordance to Emergency Department Preemptive Guidelines have been reviewed and unless so stated elsewhere in this patient chart, the Physician/PUMPMAN/PA-C agrees with the testing and care provided. No Additional Attestations Nanette Hernandez 10/14/23 2210 Nanette Hernandez 10/14/23 2234 Alexis Elliott DO 10/14/23 2237 Nanette Hernandez 10/14/23 2240 Nanette Hernandez 10/14/23 2326 Nanette Hernandez 10/14/23 2358 Gillian Cordero MD 10/15/23 0043 Alexis Elliott DO 10/15/23 0401 [facility] Work Phone: 02-09-2022 Note PROCEDURE: XR [...] by: LO COSTA Date: 2022-02-09 06:49 [facility] 02-09-2022 Note PROCEDURE: XR ANKLE RT MIN [...] by: LO COSTA Date: 2022-02-09 06:49 [facility] Evaluation note Includes: Assessments for all patient encountersNo Assessments Recorded Health [facility] Work Phone: Evaluation note Diagnosis ARSH (generalized anxiety disorder) ([facility]) Generalized anxiety disorder [facility] Diagnosis Chronic obstructive pulmonary disease with acute exacerbation ([facility])- Primary Chronic rhinitis Bipolar depression ([facility]) Bipolar I disorder, most recent episode (or current) depressed, unspecified ADORE (obstructive sleep apnea) Obstructive sleep apnea (adult) (pediatric) Pulmonary emphysema, unspecified emphysema type ([facility]) [facility] Diagnosis ERIN (acute kidney injury) ([facility])- Primary ERIN (acute kidney injury) ([facility]) Hypertensive urgency Hypokalemia Hypopotassemia Elevated brain natriuretic peptide (BNP) level Chronic obstructive pulmonary disease ([facility]) Hypertension Unspecified essential hypertension Hypokalemia Hypopotassemia ADORE (obstructive sleep apnea) Obstructive sleep apnea (adult) (pediatric) Edema of both lower extremities Mixed hyperlipidemia Abnormal fasting glucose LUTHER (iron deficiency anemia) Unspecified iron deficiency anemia Bipolar depression ([facility]) Bipolar I disorder, most recent episode (or current) depressed, unspecified 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- Primary [facility] Diagnosis ERIN (acute kidney injury) ([facility])- Primary 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 ([facility]) Hypovitaminosis D Unspecified vitamin D deficiency Hypomagnesemia Disorders of magnesium metabolism Primary hypertension Unspecified essential hypertension Nephrotic range proteinuria Proteinuria [facility] Narrative History of Present Illness not supported for this document type No History of Present Illness [facility] Work Phone: Instructions Instructions not supported for this document type No Instructions [facility] Work Phone: InstructionsNot on filedocumented in this [...] Outcomes for active Goals No Outcomes [facility] Work Phone: reason for referral (narrative)* Consultation (Routine) - Pending Review Specialty Diagnoses / Procedures Referred By Juan fonseca Referred To Contact Pulmonary Disease Diagnoses Chronic obstructive pulmonary disease with acute exacerbation ([facility]) ADORE (obstructive sleep apnea) Pulmonary emphysema, unspecified emphysema type ([facility]) Procedures MI OFFICE/OUTPATIENT [facility] MDM 60 MINUTES Erica Pompa NP [address] [place] [address] Referral ID Status Reason Start Date Expiration Date Visits Requested Visits Authorized [id number] Pending Review Specialty Services Required 01/31/2024 07/29/2024 [...] FoundDocuments on File Type Date Recorded Patient Electrician Manager Expl anation ACP-Advance Directive ACP-Power of Food And Drug Inspector Documents on File Type Date Recorded Patient Electrician Manager Expl anation Durable Power of Food And Drug Inspector 01/12/2021 1:47 PM Living Will 01/12/2021 1:47 [...] section and content) DATE CREATED AUTHOR 10/23/2017 [facility] DATE CREATED AUTHOR AUTHOR'S ORGANIZ ATION 08/01/2018 [facility] DATE CREATED AUTHOR AUTHOR'S ORGANIZ ATION 08/11/2018 [facility] DATE CREATED AUTHOR AUTHOR'S ORGANIZ ATION 01/23/2020 [facility] DATE CREATED AUTHOR AUTHOR'S ORGANIZ ATION 04/19/2022 [facility] DATE CREATED AUTHOR AUTHOR'S ORGANIZ ATION 01/14/2024 [facility] DATE CREATED AUTHOR AUTHOR'S ORGANIZ ATION 01/23/2024 [facility] DATE CREATED AUTHOR AUTHOR'S ORGANIZ ATION 02/02/[address] [facility] DATE CREATED AUTHOR AUTHOR'S ORGANIZ ATION 12/27/2024 [facility] Reason for Visit (unrecogniz ed section and content) Reason Onset Date Comments Med Refill 01/29/2024 Reason Comments Cough Reason Comments Leg Swelling Arm Swelling Nausea Cough Specialty Diagnoses / Procedures Referred By Juan fonseca Referred To Contact Diagnoses Hypokalemia Chest pain ERIN (acute kidney injury) ([facility]) Hypertensive urgency Elevated brain natriuretic peptide (BNP) level Dre Jewell MD [address] [facility] [address] [place] [address] Referral ID Status Reason Start Date Expiration Date Visits Re quested Visits Authorized [id number] 1 1 Reason Comments Outpatient Infusion [facility] Specialty Diagnoses / Procedures Referred By Juan fonseca Referred To Contact Diagnoses 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 Procedures INJECTION,RITUXIMAB-PVVR,BI OSIMILAR,(RUXIENCE),10MG INJECTION, RITUXIMAB-ABBS,BIOSIMILAR,( TRUXIMA),10MG Wanda Mendez MD [address] [place] [address] P[facility] Med Onc [address] [place] [address] Referral ID Status Reason Start Date Expiration Date V isits Requested Visits Authorized [id number] Authorized 11/13/2023 11/09/2024 1 4 Reason Comments Med Refill Care Teams (unrecognized sec tion and content) Food Quality Technician Relationship Specialty Start Date End Date Vu Rivera MD [address] [place] [address] PCP - General Family Medicine 12/12/23 Erica Pompa NP [address] [place] [address] Nurse Practitioner Family Medicine 12/12/23 Food Quality Technician Relationship Specialty Start Date End Date Vu Rivera MD [address] [place] [phone] PCP - General Family Medicine 12/12/23 Erica Pompa NP [address] [place] [address] Nurse Practitioner Family Medicine 12/12/23 Food Quality Technician Relationship Specialty Start Date End Date Vu Rivera MD [address] [place] [phone] PCP - General Family Medicine 12/12/23 Erica Pompa NP [address] [place] [address] Nurse Practitioner Family Medicine 12/12/23 Food Quality Technician Relationship Specialty Start Date End Date Pcp, [place] [address] PCP - General Family Medicine 10/14/23 Food Quality Technician Relationship Specialty Start Date End Date Shawn Zamora MD [address] [place] [address] PCP - General Family Medicine 10/19/23 Food Quality Technician Relationship Specialty Start Date End Date Shawn Zamora MD [address] [place] [address] PCP - General Family Medicine 10/19/23 Food Quality Technician Relationship Specialty Start Date End Date Shawn Zamora MD [address] [place] [address] PCP - General Family Medicine 10/19/23 Food Quality Technician Relationship Specialty Start Date End Date Shawn Zamora MD [address] [place] [address] PCP - General Family Medicine 10/19/23 Food Quality Technician Relationship Specialty Start Date End Date Shawn Zamora MD [address] [place], [place] [phone] PCP - General Family Medicine 10/19/23 Food Quality Technician Relationship Specialty Start Date End Date Shawn Zamora MD [address] [place], [place] [phone] PCP - General Family Medicine 10/19/23 Food Quality Technician Relationship Specialty Start Date End Date Shawn Zamora MD [address] [place] [id number] PCP - General Family Medicine 10/19/23 Scheduled [...] Shelby Lee RN)2028 (Given - Provider: Shannon eBcerril RN) cyanocobalamin (VITAMIN B-12) injection 1,000 mcg [...] whole-do not crush or chew. Although the dovetail machine operator does not recommend opening the capsule to [...] Every 4 hours PRN, high blood pressure, apw=[id number], Starting on 10/15/23 at 1020, Look-alike/sound-alike medication [...] Romelia Miller RCP) kit for prep of [id number] 2.5 mg recon soln 5 millicurie (COMPLETED) [...] BE BASED ON THE PRIMARY CLINICAL RECORDS. [employer] provides no warranty or guarantee of the accuracy or completeness of information in this document.
--- NOTE | 2025-01-29 12:34 | PM.HP ---
HPI H&P: HPI History of Present Illness Chief complaint: SOB, COPD EXACERBATION, HYPOXIA Narrative: Mrs. Monae is a 59-year-old female with a known history of hypertension, diabetes, CAD, obesity and COPD. Patient came in with progressive wheezing, cough and shortness of breath. Cough productive to yellowish sputum. No fever or chills. No chest pain palpitation. No abdominal pain, nausea or vomiting. Opioid HPI Opioid Management Most Recent Pain and Opioid Data: Last Pain Scale 8 Today, 11:00 Last Pain Assessment Today, 11:00 Last ORT Total Score 6 Today, 11:00 Last ORT Risk Category Moderate Risk Today, 11:00 Review of Systems ROS Status of ROS 10 or more systems reviewed and unremarkable except as noted in history and below [facility] Medical History (Updated 01/29/25 @ 12:36 by Jayjay Bro MD) Normal hysteroscopy ?Z01.89 - Encounter for other specified special examinations (ICD-10) Toe amputee ?Z89.429 - Acquired absence of other toe(s), unspecified side (ICD-10) Morbid obesity with BMI of 60.0-69.9, adult ?E66.01 - Morbid (severe) obesity due to excess calories (ICD-10) ?Z68.44 - Body mass index [BMI] 60.0-69.9, adult (ICD-10) Iron deficiency anemia ?D50.9 - Iron deficiency anemia, unspecified (ICD-10) Primary hypertension ?I10 - Essential (primary) hypertension (ICD-10) COPD (chronic obstructive pulmonary disease) ?J44.9 - Chronic obstructive pulmonary disease, unspecified (ICD-10) Tobacco abuse ?Z72.0 - Tobacco use (ICD-10) Surgical History (Updated 01/29/25 @ 10:38 by Rossana Edouard) H/O hysterectomy for benign disease ?Z90.710 - Acquired absence of both cervix and uterus (ICD-10) H/O left heart catheterization by ventricular puncture ?Z98.890 - Other specified postprocedural states (ICD-10) Family History (Updated 01/29/25 @ 11:29 by Alisha Leroy) Father Family history of CHF (congestive heart failure) Family history of hypertension Mother Family history of COPD (chronic obstructive pulmonary disease) Family history of cancer Family history of diabetes mellitus Family history of hypertension Social History (Updated 01/29/25 @ 11:30 by Alisha Leroy) Within the past year, how often did you have a drink containing alcohol: never Score interpretation: A score less than 3 is consistent with normal alcohol consumption. 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 Known occupational exposures/hazards: No Highest level of school completed/degree received: high school graduate Do you want help with school or training: No Are you now , , , , never or living with a partner: In a typical week, how many times do you talk on the telephone with family, friends, or neighbors: 3 or more times per week How often do you get together with friends or relatives: 3 or more times per week How often do you attend judaism or taoism services: never Do you belong to any clubs or organizations such as judaism groups unions, [employer] or athletic groups, or school groups: no Total score: 1 Score interpretation: A score of less than or equal to 1 indicates the most socially isolated. Little interest or pleasure in doing things: not at all Feeling down, depressed, or hopeless: not at all Feel stressed/tense/nervous/anxious/difficulty sleeping: only a little Due to disability, difficulty making decisions: No Do you think of yourself as: straight/heterosexual Gender Identity: female Meds Home Medications and Allergies Home Medications ?Medication ?Instructions ?Recorded ?Confirmed ?Type albuterol sulfate 90 mcg/actuation 2 puff inhalation Q6H 03/23/24 01/29/25 History aerosol inhaler buspirone 15 mg tablet 15 mg PO BID 03/23/24 01/29/25 History carvedilol 25 mg tablet 25 mg PO Q12H 03/23/24 01/29/25 History donepezil 10 mg tablet 10 mg PO DAILY 03/23/24 01/29/25 History duloxetine 60 mg capsule,delayed 60 mg PO DAILY 03/23/24 01/29/25 History release ferrous sulfate 325 mg (65 mg 325 mg PO DAILY 03/23/24 01/29/25 History iron) tablet (FeroSul) bumetanide 1 mg tablet 1 mg PO DAILY 04/08/24 01/29/25 History lamotrigine 100 mg tablet 100 mg PO DAILY 04/08/24 01/29/25 History cetirizine 10 mg tablet 10 mg PO .QD 04/09/24 01/29/25 History cholecalciferol (vitamin D3) 125 5,000 unit PO .QD 04/09/24 01/29/25 History mcg (5,000 unit) tablet amlodipine 10 mg tablet 10 mg PO .qd 01/29/25 01/29/25 History cyanocobalamin (vitamin B-12) 1,000 mcg PO DAILY 01/29/25 01/29/25 History 1,000 mcg tablet dapagliflozin propanediol 10 mg 10 mg PO DAILY 01/29/25 01/29/25 History tablet (Farxiga) doxycycline hyclate 100 mg capsule 100 mg PO BID 7 days #14 caps 01/29/25 Rx hydroxyzine HCl 25 mg tablet 25 mg PO Q8H PRN anxiety 01/29/25 01/29/25 History losartan 25 mg tablet 25 mg PO DAILY 01/29/25 01/29/25 History magnesium oxide 400 mg (241.3 mg 400 mg PO DAILY 01/29/25 01/29/25 History magnesium) tablet omeprazole 40 mg capsule,delayed 40 mg PO DAILY 01/29/25 01/29/25 History release prednisone 20 mg tablet 40 mg (2 x 20 mg) PO DAILY 4 days 01/29/25 Rx #8 tabs Allergies Allergy/AdvReac Type Severity Reaction Status Date / Time codeine Allergy Intermediate Nausea Verified 01/29/25 04:31 pregabalin (From Lyrica) Allergy Intermediate Rash Verified 01/29/25 04:31 sulfamethoxazole (From Allergy Intermediate Rash Verified 01/29/25 04:31 Bactrim) trimethoprim (From Bactrim) Allergy Intermediate Rash Verified 01/29/25 04:31 Exam Narrative Exam Narrative: [pt is awake and alert. oriented to place, time and person, morbidly obese, coughing throughout the interview. HEENT: [place] conjunctiva and NL buccal mucosa Neck: Supple, no tenderness Endocrine: No Thyromegaly. Vascular: No JVD or carotid bruit. Lymphatic: No cervical lymphadenopathy. Chest: Bilateral wheezing and rhonchi. Heart RRR, no extra sound or murmur. Abd: Soft, no tenderness, no rebound and no rigidity. Increase abd girth therefore clinically I could not exclude the possibility of intra abd mass or organomegaly. LE: No cyanosis or clubbing, no varices or edema. Bilateral nonpitting edema, lymphedema Neuro: A A O. Nl speech, comprehension and attention. Nl and symetrical motor and tone examination through out. Functional impairment overall secondary to morbid obesity. []] Constitutional Vital Signs, click to edit/add: Last Vital Signs Temp 98.4 F 01/29/25 11:00 Pulse 68 01/29/25 11:00 Resp 20 01/29/25 11:00 BP 150/86 H 01/29/25 11:00 Pulse Ox 93 L 01/29/25 11:00 O2 Del Method Nasal Cannula 01/29/25 11:00 O2 Flow Rate 3 01/29/25 11:00 Results Labs Labs: Short CBC 01/29/25 Range/Units 04:35 WBC 7.3 (4.0-11.0) 10^3/uL Hgb 11.2 L (12.0-16.0) g/dL Hct 34.4 L (36.0-48.0) % Plt Count 255 (150-450) 10^3/uL BMP 01/29/25 04:35 Sodium 141 Potassium 3.7 Chloride 103 Carbon Dioxide 29.7 BUN 21.0 H Creatinine 1.31 H Glucose 96 Calcium 9.4 Assessment and Plan Assessment and Plan (1) Acute hypoxic respiratory failure: (2) Acute exacerbation of COPD with asthma: (3) Acute diastolic heart failure: Plan Acute COPD exacerbation Acute bronchitis Acute diastolic heart failure. Acute heart failure with preserved ejection fraction Acute hypoxic respiratory failure. Saturation dropping to mid 80s with exertion secondary to above. CTA does not show any pulmonary embolism. Patient had stress test 4 months ago which showed normal ejection fraction I excepted to admit patient to the medical floor. I started patient on intravenous diuretics, Solu-Medrol, albuterol and Atrovent. Reduced dose of beta-george to reduce risk of bronchospasm I start patient on doxycycline and cough medication. Counseling about tobacco addiction and the need to stop smoking. Requested to check COVID-19, RSV and influenza. Other potential viruses such as parainfluenza, adenovirus, human metapneumovirus could not be tested here at [facility] Hypertension and diabetes Resume preadmission home medications with the exception of reducing beta-george dose to reduce bronchospasm. Accu-Chek with sliding scale coverage CKD stage III dating back to March 2024 which is the oldest kidney function I have any system. Likely chronic and at baseline. Lower extremities edema Venous study rule out DVT DVT prophylaxis with Lovenox 40 mg twice a day. Tobacco addiction Counseling and education to quit smoking NicoDerm patch Anemia, no evidence of acute blood loss. Patient will likely require to have anemia workup to be done in the outpatient setting to be handled by PCP in collaboration with other needed outpatient providers. This may include but not limited to EGD, colonoscopy, referral to see hematology and other needed age-appropriate cancer screening. Chronic, subacute medical conditions not listed above, abnormal labs and imaging. These would need to be addressed. Could be addressed later on or in the outpatient setting by PCP collaboration with other needed outpatient providers when time and condition are appropriate.
--- NOTE | 2025-01-29 12:58 | W.ACP ---
Advance Care Planning Advance Care Planning Discussion Advance care planning discussion summary: Advance care planning and goals of care discussion. Patient requested the conversation to take place. Conversation lasted about 16 mins At the end of my encounter patient requested additional conversation take place regarding goals of care and advance care planning. Patient requested that her CODE STATUS to be changed to DNR CC specifically. I spent some time trying to understand her understanding of DNR CC and what it means. I explained in layman's terms the difference between full code, CCA and CCA I explained in simple terms the difference being aggressive and a comfort care approach. Patient has fairly preserved cognition to understand conversation related to her health including risk, benefit, options, alternatives, life and situation. She was able to ask and answer questions. She was able to recite. Patient stated adamantly that her CODE STATUS should be DNR CC. She does not want CCA. She stated that she wants comfort care only approach. At this time I will honor her wishes and change CODE STATUS accordingly.
[2025-01-29 13:31] LABS: SARS-CoV-2 Ag NEGATIVE (NEGATIVE)
--- NOTE | 2025-01-29 13:53 | SWNOTE1 ---
SW met with pt to discuss dc needs. Pt lives at home alone. She has a 1 story home. Pt does not use any DME at home. Pt still drives and does her own grocery shopping. Pt does have friends/family as good support that she can call if needed. Pt is on oxygen here at the hospital and does not wear home oxygen. Pt denies any discharge needs at this time. SW to follow as needed.
[2025-01-29] MEDS: FUROSEMIDE 40 MG/4 ML VIAL IVP ×2 (13:58→21:20)
[2025-01-29] MEDS: ACETAMINOPHEN 325 MG TABLET 650 MG PO (13:58)
[2025-01-29] MEDS: LOSARTAN POTASSIUM 25 MG TABLET PO (13:58)
[2025-01-29] MEDS: CARVEDILOL 12.5 MG TABLET PO ×2 (13:58→20:33)
[2025-01-29] MEDS: ENOXAPARIN SODIUM 60 MG/0.6 ML SYRINGE SUBQ ×2 (14:00→23:23)
[2025-01-29] MEDS: AMLODIPINE BESYLATE 5 MG TABLET 10 MG PO (14:00)
[2025-01-29] MEDS: POTASSIUM CHLORIDE 10 MEQ ER TABLET 20 MEQ PO (14:01)
--- OUTSIDE RECORDS SUMMARY | 2025-01-29 16:39 | XMS_ITS | CCD ---
Author Organization [facility] Care Team Providers Care Cold Roll Operator Name Role Phone Tanja, Leda Unavailable Unavailable Unavailable Unavailable Unavailable Unavailable Unavailable Unavailable Tanja, Leda Unavailable Unavailable Tanja, Leda Unavailable Unavailable Unavailable Unavailable Unavailable Heath Kirkpatrick Attending Gisselle vailable Heath Kirkpatrick Referring Gisselle vailable Rumschlag, Mignon Primary Care Provider [phone] TIM SHARMA Referring Unavailab le RUMSCHLAG, MIGNON Primary Care Unavailable RAVTIM ORTIZ Referring Unavailab le RUMSCHLAG, MIGNON Primary Care Unavailable ALLAN SHARMAMPSAGER Referring Unavailab le RUMSCHLAG, MIGNON Primary Care Unavailable Tanja ESCROW REPRESENTATIVE, Leda Unavailable NICOLE, DR VU Novoa Attending Unavailable NICOLE, DR VU Novoa Admitting Unavailable [facility] Primary Care Unavailable LIYAH, DR EBEN Couch Consulting Unavailblanca KAT, DR FRIEDA Tobar Consulting Unavailblanca e JULISSA, DR LO Hdz Consulting Unavailable NICOLE, DR VU Novoa Consulting Unavailable LATONIA, DR KHAN Consulting Unavailable NANCI BEEBE Attending Unavailable NANCI BEEBE Admitting Unavailable JULISSA, DR LO Hdz Consulting Unavailable [facility] Primary Care Unavailable NANCI BEEBE Consulting Unavailable QUYNH ARCHER Attending Unavailable QUYNH ARCHER Admitting Unavailable [facility] Primary Care Unavailable QUYNH ARCHER Consulting Unavailable [...] Attending UnavailVu Arguello MD Primary Care Provider [phone] Erica Pompa NP Unavailable Pcp, Not In [...] Nausea And Vomiting, GI intolerance, Vomiting Health [facility] (4 sources) pregabalin; Translations: [Lyrica] Drug Allergy Altered Mental State [facility] (4 sources) sulfamethoxazole / trimethoprim; Translations: [Bactrim] Drug Allergy [facility] (4 sources) -No Environmental Allergies; Translations: [-No Environmental Allergies] Allergy to substance (disorder) [facility] (2 sources) -No Known Food Allergies Allergy to substance (disorder) [facility] (3 sources) NSAIDs Propensity to adverse reactions to drug 02-24-20 15 Other (See Comments) [employer] [place] (20 sources) pregabalin; Translations: [PREGABALIN] Drug Allergy 01-19-20 12 Other (See Comments), Unknown [employer] [place] (20 sources) Sulfamethoxazole / Trimethoprim; Translations: [SULFAMETHOXAZOLE-T RIMETHOPRIM] Drug Allergy 11-15-19 16 Hives [employer], [place] (1 source) pregabalin Drug Allergy 12-31-19 22 [facility] (1 source) Sulfamethoxazole / Trimethoprim Drug Allergy 04-15-20 22 [facility] Medications Current Medications Medication Drug Class(es) Dates Sig (Normalized) Sig (Original) [id number] 200 actuat albuterol 0.09 mg/actuat metered dose [...] 90MCG/ACTUAT AR SC 05/19/2018 - 05/19/2018 Provider: End: 10-14-2023 [...] 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 take 1 tablet by [facility] once daily donepezil (ARICEPT) 10 MG [...] Active Start: 10-26-2023 take 1 capsule by [facility] in the morning DULoxetine (CYMBALTA) 30 mg capsule Take 1 capsule (30 mg total) by mouth in the morning. 30 capsule 10/26/2023 Active Start: 07-19-2018 DULoxetine HCl 30MG Oral Capsule, delayed-release particles 07/19/2018 Provider: Start: 05-19-2018 End: 05-19-2018 DULOXETINE 30MG MISC 019 - 05/19/2018 Provider: Start: 05-19-2018 End: 05-19-2018 [facility]OXETINE [facility]MG [facility] 019 - 05/19/2018 Provider: Start: 03-07-2018 take 1 capsule by mo [facility] once daily duloxetine 30 mg oral capsule,delayed release(DR/EC) 03/07/2018 take 1 capsule (30 mg) by oral route once daily, take with 60 mg capsule to equal 90 mg daily Start: 03-07-2018 End: 03-07-2018 DULOXETINE 60MG MISC 018 - 03/07/2018 Provider: Start: 03-07-2018 End: 03-07-2018 DULOXETINE 30MG MISC 018 - 03/07/2018 Provider: Start: 08-16-2017 take 1 capsule by mo [facility] once daily 60 mg, oral, Daily, First dose on 10/15/23 at 0900, Look-alike/sound-alike medication - verify indication for use. Swallow whole-do not crush or chew. Although the services delivery driver does not recommend opening the capsule to facilitate administration, the contents of capsule may be sprinkled on applesauce or in apple juice and swallowed (without chewing) immediately; do not sprinkle contents on chocolate pudding. take 1 capsule by [facility] once daily duloxetine 30 mg oral capsule,delayed release(DR/EC) take 1 capsule (30 mg) by oral route once daily ergocalciferol 1.25 mg oral capsule (4 sources) Provitamin D2 Compound Start: 07-19-2018 Ergocalciferol [id number] Oral Capsule, conventional 07/19/2018 Provider: Start: 09-14-2017 take 1 capsule by [facility] every week Vitamin D2 50,000 unit oral [...] 07/12/2018 - 07/20/2018 Provider: Leda Agrawal CNP Gixbmayfpsk-Vrhhgxgfs-Skptoj (Trelegy Ellipta) 200-62.5-25 MCG/ACT aerosol powder (4 sources) Start: 11-02-2023 take 1 puff(s) by inhalation once daily Rzdrglpacug-Qfwwnwyme-Bmofeb (Trelegy Ellipta) 200-62.5-25 MCG/ACT aerosol powder Indications: Chronic obstructive pulmonary disease, unspecified COPD type ([facility]) Inhale 1 puff Daily 28 each [...] Start: 05-19-2018 End: 05-19-2018 GABAPENTIN 300 mg [facility] 05/19 - 05/19/2018 Provider: Start: 02-13-2018 End: 02-13-2018 Gabapentin 600MG OR TABS - 02/13/2018 Provider: Start: 09-26-2017 take 1 capsule by mo [facility] three times daily gabapentin 300 [...] Every 4 hours PRN, high blood pressure, [id number]=[id number], Starting on 10/15/23 at 1020, Look-alike/sound-alike medication [...] Start: 03-13-2018 take 1 capsule by mo [facility] twice daily hydroxyzine pamoate 50 [...] 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 ([facility]) Take 2.5 tablets (50 mg total) [...] 1 dose take 2 tablets by mo [facility] every four hours as needed [...] Start: 02-13-2018 End: 02-13-2018 CLINDAMYCIN HCL 300MG [facility] 02/13/2018 - 02/13/2018 Provider: Start: 02-13-2018 [...] day with food kit for prep of Be-17u-brrtovm 2.5 mg recon soln 5 millicurie (1 [...] after each intermittent use, Starting on [facility] 10/14/23 at 2218 technetium pentetate (DTPA [...] 09-26-2017 Chronic Other aftercare (2 sources) 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; Translations: [OTH NEGATIVE CLEANER CURRENT DRUG THERAPY] Onset: 2 Episodic Other aftercare (1 source) terminal manager (current) use of systemic steroids; Translations: [terminal manager (current) use of systemic steroids] Onset: 4 Episodic Other circulatory disease (1 source) 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 Mccormick. [facility] Orders Onlyon 12-18-2024 Orders Only [id number] Danielle [place] 1965 F Date Provider Department [place] 12/18/2024 [id number], HISTORICAL [facility] Family History Problem Relation Age of Onset Coronary artery disease Father Family Status - Relation Status Age at Mother Father [facility] 36on 12-10-2024 36 MD Aliya Lundberg MA Great - her s.cr is almost back to normal. Please reassure her. Thanks Spoke to patient, advised patient of lab results per Dr. Mccormick's request. Patient verbalized understanding [facility] 36on 12-09-2024 36 Regarding lab results [...] of care. No new medications per patient [facility] 36 Regarding lab results from 12/05/2024: [...] LM for patient to return my call. [facility] Telephoneon 12-09-2024 Telephone [id number] Danielle [place] 1965 F Date Provider Department Center 12/09/2024 [id number] WOOTEN [facility] Family History Problem Relation Age of Onset Coronary artery disease Father Family Status - Relation Status Age at Mother Father [facility] HPon 12-06-2024 HP History Of Present [...] Resource Strain: Low Risk (02/05/2024) Received from [facility] Overall Financial Resource Strain (CARDIA) Difficulty of Paying Living Expenses: Not very hard Food Insecurity: No Food Insecurity (02/05/2024) Received from [facility] Hunger Vital Sign Worried About Running Out of Food in the Last Year: Never true Ran Out of Food in the Last Year: Never true Transportation Needs: Unmet Transportation Needs (02/05/2024) Received from [facility] PRAPARE - Transportation Lack of Transportation (Medical): Yes Lack of Transportation (Non-Medical): No Physical Activity: Not on file Stress: Not on file Social Connections: Socially Isolated (02/05/2024) Received from [facility] Social Connection and Isolation Panel [NHANES] Frequency of Communication with Friends and Family: Twice a week Frequency of Social Gatherings with Friends and Family: Never Attends [employer]ism Services: Never Active Member of Clubs or Organizations: No Attends Club or Organization Meetings: Never Marital Status: Intimate Partner Violence: Not At Risk (05/23/2024) Humiliation, Afraid, Rape, and Kick questionnaire Fear of Current or Ex-Partner: No Emotionally Abused: No Physically Abused: No Sexually Abused: No Housing Stability: Unknown (02/05/2024) Received from [facility] Housing Stability Vital Sign Unable to [...] and agreed to proceed. Abram Man PGY-4 Authorization Nurse [facility] [1] Past Medical History: Diagnosis Date Abn (more content not included)... Normal [facility] NURSNOTEon 12-06-2024 NURSNOTE RN educated pt [...] any questions or concerns if pt verbalized. [facility] 36on 11-19-2024 36 Regarding stress test [...] it. Lab orders entered and faxed to [facility]. Patient verbalized understanding. [facility] Telephoneon 11-19-2024 Telephone [id number] Courtney Montanadevendra Bar 1965 F Date Provider Department [place] 11/19/2024 928-ALISHA FORDE [facility] Family History Problem Relation Age of Onset Coronary artery disease Father Family Status - Relation Status Age at Mother Father [facility] Orders Onlyon 11-11-2024 Orders Only [id number] Danielle [place] Yosvany 1965 F Date Provider Department [place] 11/11/2024 [id number], HISTORICAL JUAN CARD [facility] Family History Problem Relation Age of Onset Coronary artery disease Father Family Status - Relation Status Age at Mother Father [facility] Office Visiton 10-08-2024 Follow-up visit [id number] Danielle [place] Yosvany 1965 Date Provider Department Center 10/08/2024 271-MEHDRAD MCCORMICK Family History Problem Relation Age of Onset Coronary artery disease Father Family Status - Relation Status Age at Mother Father Level of Service:98483 [place] OFFICE/OUTPATIENT ESTABLISHED MOD MDM 30 MIN [facility] 36on 06-11-2024 36 The [employer] is asking you amend your last office visit on 05/20/2024 and document the need for a BP cuff for this patient. Can you do that quick and let me know when it's done? Thank you so much!! :) [facility] Orders Onlyon 06-10-2024 Orders Only [id number] Danielle [place] Yosvany 1965 F Date Provider Department Center 06/10/2024 KEITH TIRADO CARD [facility] Family History Problem Relation Age of Onset Coronary artery disease Father Family Status - Relation Status Age at Father Normal [facility] Telephoneon 05-29-2024 Telephone [id number] DovDanielle mcclendon 1965 F Date Provider Department Center 05/29/2024 271-MEHRDAD MCCORMICK [facility] Family History Problem Relation Age of Onset Coronary artery disease Father Family Status - Relation Status Age at Father Normal [facility] Infusionon 05-23-2024 Infusion [id number] Danielle [place] 1965 F Date Provider Department Center 05/23/2024 [id number] CHAIR 9 DCC INF DCC Family History Problem Relation Age of Onset Coronary artery disease Father Family Status - Relation Status Age at Father Normal [facility] Office Visiton 05-20-2024 Follow-up visit [id number] Danielle [place] 1965 Date Provider Department Center 05/20/2024 271-MEHRDAD MCCORMICK [facility] Family History Problem Relation Age of Onset Coronary artery disease Father Family Status - Relation Status Age at Father Level of Service:64025 [place] OFFICE/OUTPATIENT ESTABLISHED MOD MDM 30 MIN [facility] 36on 03-07-2024 36 Called patient to reschedule their appointment scheduled for 03/[address] Daniels Result: left voicemail to reschedule [facility] BASIC METABOLIC PANLon 01-21 Anion gap [Moles/Vol] 9 mmol/L Normal 5-15 [facility] Comment on above: Performed By: #### C BCA, CMP, 01582-4 #### [facility] ([id number]) [address] [place] [address] 42516 Calcium [Mass/Vol] 9.5 mg/dL Normal 8.5-10.5 [facility] Comment on above: Performed By: #### C BCA, CMP, 99306-1 #### [facility] ([id number]) [address] [place] [address] 60519 Chloride [Moles/Vol] 101 mmol/L Normal 98-109 [facility] Comment on above: Performed By: #### C BCA, CMP, 35972-6 #### [facility] ([id number]) [address] [place] [address] 02683 CO2 [Moles/Vol] 31 mmol/L Normal 22-32 [facility] Comment on above: Performed By: #### C EDEL POOLE, 19386-3 #### [facility] ([id number]) [address] [place] [address] 12277 Creatinine [Mass/Vol] 1.63 mg/dL High 0.40-1.00 [facility] Comment on above: Result Comment: METH OD TRACEABLE TO IDMS STANDARD Performed By: #### C EDEL POOLE, 00749-6 #### [facility] ([id number]) [address] [place] [address] 76100 GFR/1.73 sq M.predicted among non-blacks MDRD (S/P/Bld) [Vol rate/Area] 36 mL/min/{1.73_m2} Low >59 [facility] Comment on above: Result Comment: Reported eGFR is based on the CKD-EPI 2020 equation that does not use a race coefficient. Performed By: #### C EDEL POOLE, #### [facility] ([id number]) [address] [place] [address] 42957 Glucose [Mass/Vol] 84 mg/dL Normal 65-99 [facility] Comment on above: Performed By: #### C EDEL POOLE, 06087-0 #### [facility] ([id number]) [address] [place] [address] 50116 Potassium [Moles/Vol] 4.3 mmol/L Normal 3.5-5.0 [facility] Comment on above: Performed By: #### C EDEL POOLE, 65423-0 #### [facility] ([id number]) [address] [place] [address] 27986 Sodium [Moles/Vol] 141 mmol/L Normal 134-146 [facility] Comment on above: Performed By: #### C EDEL POOLE, 95504-4 #### [facility] ([id number]) [address] [place] [address] 70711 Urea nitrogen [Mass/Vol] 34 mg/dL High 5-23 [facility] Comment on above: Performed By: #### C BCA, CMP, 23568-4 #### [facility] ([id number]) [address] [place] [address] [place] [address] BASIC METABOLIC PANLon 01-11 Anion gap [Moles/Vol] 12 mmol/L Normal 5-15 [facility] Comment on above: Performed By: #### 8 9579-7 #### [facility] ([id number]) [address] [place] [address] 88347 Calcium [Mass/Vol] 9.4 mg/dL Normal 8.5-10.5 [facility] Comment on above: Performed By: #### 8 9579-7 #### [facility] ([id number]) [address] [place] [address] 87538 Chloride [Moles/Vol] 104 mmol/L Normal 98-109 [facility] Comment on above: Performed By: #### 8 9579-7 #### [facility] ([id number]) [address] [place] [address] 26858 CO2 [Moles/Vol] 28 mmol/L Normal 22-32 [facility] Comment on above: Performed By: #### 8 9579-7 #### [facility] ([id number]) [address] [place] [address] 06554 Creatinine [Mass/Vol] 1.22 mg/dL High 0.40-1.00 [facility] Comment on above: Result Comment: METH OD TRACEABLE TO IDMS STANDARD Performed By: #### 8 9579-7 #### [facility] ([id number]) [address] [place] [address] [place] [address] GFR/1.73 sq M.predicted among non-blacks MDRD (S/P/Bld) [Vol rate/Area] 51 mL/min/{1.73_m2} Low >59 [facility] Comment on above: Result Comment: Reported eGFR is based on the CKD-EPI 2020 equation that does not use a race coefficient. Performed By: #### 8 9579-7 #### [facility] ([id number]) [address] [place] [address] 16823 Glucose [Mass/Vol] 100 mg/dL High 65-99 [facility] Comment on above: Performed By: #### 8 9579-7 #### [facility] ([id number]) [address] [place] [address] 64598 Potassium [Moles/Vol] 3.8 mmol/L Normal 3.5-5.0 [facility] Comment on above: Performed By: #### 8 9579-7 #### [facility] ([id number]) [address] [place] [address] 70126 Sodium [Moles/Vol] 144 mmol/L Normal 134-146 [facility] Comment on above: Performed By: #### 8 9579-7 #### [facility] ([id number]) [address] [place] [address] 69614 Urea nitrogen [Mass/Vol] 17 mg/dL Normal 5-23 [facility] Comment on above: Performed By: #### 8 9579-7 #### [facility] ([id number]) [address] [place] [address] 20966 COMPLETE BLOOD COUNTon 01-11 Erythrocyte distribution width (RBC) [Ratio] 16.7 % High 11.5-15.0 [facility] Comment on above: Performed By: #### 8 9579-7 #### [facility] ([id number]) [address] [place] [address] 01218 Hematocrit (Bld) [Volume fraction] 33.6 % Low 35-47 [facility] Comment on above: Performed By: #### 8 9579-7 #### [facility] ([id number]) [address] [place] [address] 99249 Hemoglobin (Bld) [Mass/Vol] 11.2 g/dL Low 11.7-15.5 [facility] Comment on above: Performed By: #### 8 9579-7 #### [facility] ([id number]) [address] [place] [address] 48268 MCH (RBC) [Entitic mass] 28.8 pg Normal 27-34 [facility] Comment on above: Performed By: #### 8 9579-7 #### [facility] ([id number]) [address] [place] [address] 23310 MCHC (RBC) [Mass/Vol] 33.3 g/dL Normal 32-36 [facility] Comment on above: Performed By: #### 8 9579-7 #### [facility] ([id number]) [address] [place] [address] 37459 MCV (RBC) [Entitic vol] 87 fL Normal 80-100 [facility] Comment on above: Performed By: #### 8 9579-7 #### [facility] ([id number]) [address] [place] [address] 41703 Platelet mean volume (Bld) [Entitic vol] 9.7 fL Normal 7-12 [facility] Comment on above: Performed By: #### 8 9579-7 #### [facility] ([id number]) [address] [place] [address] 14739 Platelets (Bld) [#/Vol] 268 10*3/uL Normal 150-450 [facility] Comment on above: Performed By: #### 8 9579-7 #### [facility] ([id number]) [address] [place] [address] 19004 RBC COUNT 3.88 X10E12/L Normal 3.80-5.20 [facility] Comment on above: Performed By: #### 8 9579-7 #### [facility] ([id number]) [address] [place] [address] 46979 WBC (Bld) [#/Vol] 8.8 10*3/uL Normal 4.0-11.0 [facility] Comment on above: Performed By: #### 8 9579-7 #### [facility] ([id number]) [address] [place] [address] 37810 Creatinine (U) [Mass/Vol]on 01-12-2024 URINE CREATININE,RDM 107.95 mg/dL Normal Pr [facility] Comment on above: Performed By: #### Shahla POOLE [facility], #### [facility] ([id number]) [address] [place] [address] 69949 HBV core Ab IA Qlon 01-12-20 ANTI HBc Negative Normal NEG [facility] Comment on above: Performed By: #### Shahla POOLE [facility], #### [facility] ([id number]) [address] [place] [address] 79950 HBV surface Ab IA Qnon 01-11 Anti HBs quant. <8.00 Normal [facility] Comment on above: Result Comment: Vacc inated: >=12mIU/mL, Positive (Immune) Unvaccinated: <8mIU/mL, Negative (Not Immune) 8-11.99 mIU/mL: Indeterminate, (Considered Not Immune) Performed By: #### Shahla POOLE CMP, #### [facility] ([id number]) [address] [place] [address] 40482 HBV surface Ag IA Qlon 01-11 HEPATITIS B SURF AG Negative Normal NEG [facility] Comment on above: Performed By: #### C EDEL POOLE, 49286-7 #### [facility] ([id number]) [address] [place] [address] 25695 MAGNESIUMon 01-12-2024 Magnesium [Mass/Vol] 1.6 mg/dL Low 1.8-2.6 [facility] Comment on above: Performed By: #### 8 9579-7 #### [facility] ([id number]) [address] [place] [address] 43997 PHOSPHORUSon 01-12-2024 Phosphate [Mass/Vol] 3.6 mg/dL Normal 2.4-4.9 [facility] Comment on above: Performed By: #### 8 9579-7 #### [facility] ([id number]) [address] [place] [address] 74632 PROTEIN CREAT RATIOon 2023 RANDOM URINE PROTEIN 4520 mg/L High <120 [facility] Comment on above: Performed By: #### C VIRGILIO [facility], 53439-2 #### [facility] ([id number]) [address] [place] [address] 47042 U/PRO/LABORER HOISTING RATIO CALC 4.15 High <0.2 [facility] Comment on above: Result Comment: Neph rotic Syndrome is associated with ratios >3.5 Performed By: #### C EDEL POOLE, 98586-7 #### [facility] ([id number]) [address] [place] [address] 97259 URINE CREATININE,RDM 108.96 mg/dL Normal Pr [facility] Comment on above: Performed By: #### C EDEL POOLE, 24554-0 #### [facility] ([id number]) [address] [place] [address] 91053 Parathyrin.intact [Mass/Vol] on 01-12-2024 PTH INTACT 69 pg/mL Normal 12-88 [facility] Comment on above: Performed By: #### C BCA, CMP, 90264-2 #### [facility] ([id number]) [address] [place] [address]200 Protein (U) [Mass/Vol]on RANDOM URINE PROTEIN 4560 mg/L High <120 [facility] Comment on above: Performed By: #### C BCA, CMP, #### [facility] ([id number]) [address] [place] [address] [place] [address] URINALYSISon 01-12-2024 Bilirubin Ql (U) Negative Normal NEG [facility] Comment on above: Performed By: #### C BCA, CMP, #### [facility] ([id number]) [address] [place] [address] 85642 BLOOD/HGB Small Abnormal NEG [facility] Comment on above: Performed By: #### C BCA, CMP, 03491-2 #### [facility] ([id number]) [address] [place] [address] 36555 Color (U) YELLOW Normal YELLOW [facility] Comment on above: Performed By: #### C BCA, CMP, 24116-4 #### [facility] ([id number]) [address] [place] [address] 14459 Glucose Ql (U) Negative Normal NEG [facility] Comment on above: Performed By: #### C BCA, CMP, 53648-0 #### [facility] ([id number]) [address] [place] [address] 16374 Hyaline casts LM Ql (Urine sed) 1 /lpf Normal 0-2 [facility] Comment on above: Performed By: #### C BCA, CMP, 70960-1 #### [facility] ([id number]) [address] [place] [address], [place] [address] Ketones Ql (U) Negative Normal NEG [facility] Comment on above: Performed By: #### C VIRGILIO CMP, 63540-9 #### [facility] ([id number]) [address] [place] [address] 34426 Leukocyte esterase Test strip Ql (U) Negative Normal NEG [facility] Comment on above: Performed By: #### Shahla POOLE CMP, 90126-5 #### [facility] ([id number]) [address] [place] [address] 29248 MUCOUS PRESENT Abnormal NONE [facility] Comment on above: Performed By: #### C VIRGILIO CMP, 96956-8 #### [facility] ([id number]) [address] [place] [address] 96636 Nitrite Ql (U) Negative Normal NEG [facility] Comment on above: Performed By: #### C VIRGILIO [facility], 54286-2 #### [facility] ([id number]) [address] [place] [address] 06403 pH (U) 6.5 [pH] Normal 5.0-8.5 [facility] Comment on above: Performed By: #### C VIRGILIO, CMP, 45770-1 #### [facility] ([id number]) [address] [place] [address] 27652 Protein Ql (U) 300 mg/dL Abnormal NEG [facility] Comment on above: Performed By: #### C VIRGILIO, CMP, 55219-9 #### [facility] ([id number]) [address] [place] [address] 50668 R.B.CELLS 0 /hpf Normal 0-5 [facility] Comment on above: Performed By: #### C VIRGILIO, CMP, 93101-8 #### [facility] ([id number]) [address] [place] [address] 50573 Specific gravity (U) [Rel density] 1.015 Normal 1.003-1.03 5 [facility] Comment on above: Performed By: #### Shahla POOLE [facility], 45738-1 #### [facility] ([id number]) [address] [place] [address] 67206 SQUAMOUS EPITHELIUM 1 /hpf Normal 0-5 [facility] Comment on above: Performed By: #### Shahla POOLE [facility], 65219-2 #### [facility] ([id number]) [address] [place] [address] 00733 TURBIDITY CLEAR Normal CLEAR [facility] Comment on above: Performed By: #### Shahla POOLE [facility], 87505-1 #### [facility] ([id number]) [address] [place] [address] 61613 Urobilinogen (U) [Mass/Vol] mg/dL Normal <1.1 [facility] Comment on above: Performed By: #### Shahla POOLE [facility], 29337-8 #### [facility] ([id number]) [address] [place] [address] 72488 W.B.CELLS 2 /hpf Normal 0-5 [facility] Comment on above: Performed By: #### Shahla POOLE [facility], 43616-2 #### [facility] ([id number]) [address] [place] [address] 29820 Vitamin D+Metabolites [Mass/ Vol]on 01-12-2024 VITAMIN D 25 HYD TOT 23.5 ng/mL Low 30-100 [facility] Comment on above: Result Comment: Vitamin D status 25 [place] Vitamin D Deficiency <20 ng/mL Insufficiency 20-29 ng/mL Sufficiency 30-100 ng/mL Toxicity >100 ng/mL NOTE: A pediatric reference range has not been established by the services delivery driver of this kit. The [place] [employer] recommends a Vitamin D level of = or >20ng/mL in infants and children. Performed By: #### Shahla POOLE CMP, #### [facility] ([id number]) [address] [place] [address], [place] [address] COMPLETE BLOOD COUNTon 12-18 Erythrocyte distribution width (RBC) [Ratio] 16.7 % High 11.5-15.0 [facility] Comment on above: Performed By: #### C EDEL POOLE, , 2776-04, 1987-08 #### [facility] ([id number]) [address], [address] [place] [address] Hematocrit (Bld) [Volume fraction] 30.1 % Low 35-47 [facility] Comment on above: Performed By: #### Shahla POOLE CMP, , 2776-04, 1987-08 #### [facility] ([id number]) [address], [address] [place] [address] Hemoglobin (Bld) [Mass/Vol] 9.6 g/dL Low 11.7-15.5 [facility] Comment on above: Performed By: #### Shahla POOLE CMP, , 2776-04, 1987-08 #### [facility] ([id number]) [address], [address] [place] [address] MCH (RBC) [Entitic mass] 27.3 pg Normal 27-34 [facility] Comment on above: Performed By: #### Shahla POOLE CMP, , 2776-04, 1987-08 #### [facility] ([id number]) [address], [address] [place] [address] MCHC (RBC) [Mass/Vol] 32.0 g/dL Normal 32-36 [facility] Comment on above: Performed By: #### Shahla POOLE CMP, , 2776-04, 1987-08 #### [facility] ([id number]) [address], [address] [place] [address] MCV (RBC) [Entitic vol] 86 fL Normal 80-100 [facility] Comment on above: Performed By: #### C BCA, CMP, , 2776-04, 1987-08 #### [facility] ([id number]) [address], [address] [place] [address] Platelet mean volume (Bld) [Entitic vol] 9.1 fL Normal 7-12 [facility] Comment on above: Performed By: #### C BCA, CMP, , 2776-04, 1987-08 #### [facility] ([id number]) [address], [address] [place] [address] Platelets (Bld) [#/Vol] 361 10*3/uL Normal 150-450 [facility] Comment on above: Performed By: #### C BCA, CMP, , 2776-04, 1987-08 #### [facility] ([id number]) [address], [address] [place] [address] RBC COUNT 3.52 X10E12/L Low 3.80-5.20 [facility] Comment on above: Performed By: #### C BCA, CMP, , 2776-04, 1987-08 #### [facility] ([id number]) [address], [address] [place] [address] WBC (Bld) [#/Vol] 8.2 10*3/uL Normal 4.0-11.0 [facility] Comment on above: Performed By: #### C BCA, CMP, , 2776-04, 1987-08 #### [facility] ([id number]) [address], [address] [place] [address] COMPREHENSIVE METABOLIC PANE Phu 12-19-2023 Albumin [Mass/Vol] 3.4 g/dL Normal 3.2-5.3 [facility] Comment on above: Performed By: #### C BCA, CMP, , 2776-04, 1987-08 #### [facility] ([id number]) [address], [address] [place] [address] ALP [Catalytic activity/Vol] 60 U/L Normal 39-130 [facility] Comment on above: Performed By: #### C BCA, CMP, , 2776-04, 1987-08 #### [facility] ([id number]) [address], [address] [place] [address] ALT [Catalytic activity/Vol] 12 U/L Normal 0-31 [facility] Comment on above: Performed By: #### C BCA, CMP, , 2776-04, 1987-08 #### [facility] ([id number]) [address], [address] [place] [address] Anion gap [Moles/Vol] 9 mmol/L Normal 5-15 [facility] Comment on above: Performed By: #### C BCA, CMP, , 2776-04, 1987-08 #### [facility] ([id number]) [address], [address] [place] [address] AST [Catalytic activity/Vol] 13 U/L Normal 0-41 [facility] Comment on above: Performed By: #### C BCA, CMP, , 2776-04, 1987-08 #### [facility] ([id number]) [address], [address] [place] [address] Bilirubin [Mass/Vol] 0.4 mg/dL Normal 0.3-1.2 [facility] Comment on above: Performed By: #### C BCA, CMP, , 2776-04, 1987-08 #### [facility] ([id number]) [address], [address] [place] [address] Calcium [Mass/Vol] 9.5 mg/dL Normal 8.5-10.5 [facility] Comment on above: Performed By: #### C BCA, CMP, , 2776-04, 1987-08 #### [facility] ([id number]) [address], [address] [place] [address] Chloride [Moles/Vol] 105 mmol/L Normal 98-109 [facility] Comment on above: Performed By: #### C BCA, CMP, , 2776-04, 1987-08 #### [facility] ([id number]) [address], [address] [place] [address] CO2 [Moles/Vol] 28 mmol/L Normal 22-32 [facility] Comment on above: Performed By: #### C BCA, CMP, , 2776-04, 1987-08 #### [facility] ([id number]) [address], [address] [place] [address] Creatinine [Mass/Vol] 1.23 mg/dL High 0.40-1.00 [facility] Comment on above: Result Comment: METH OD TRACEABLE TO IDMS STANDARD Performed By: #### C BCA, CMP, , 2776-04, 1987-08 #### [facility] ([id number]) [address], [address] [place] [address] GFR/1.73 sq M.predicted among non-blacks MDRD (S/P/Bld) [Vol rate/Area] 51 mL/min/{1.73_m2} Low >59 [facility] Comment on above: Result Comment: Reported eGFR is based on the CKD-EPI 2020 equation that does not use a race coefficient. Performed By: #### C BCA, CMP, , 2776-04, 1987-08 #### [facility] ([id number]) [address], [address] [place] [address] Glucose [Mass/Vol] 89 mg/dL Normal 65-99 [facility] Comment on above: Performed By: #### C BCA, CMP, , 2776-04, 1987-08 #### [facility] ([id number]) [address], [address] [place] [address] Potassium [Moles/Vol] 4.9 mmol/L Normal 3.5-5.0 [facility] Comment on above: Performed By: #### C BCA, CMP, , 2776-04, 1987-08 #### [facility] ([id number]) [address] [place] [address] Protein [Mass/Vol] 6.0 g/dL Normal 6.0-8.0 [facility] Comment on above: Performed By: #### C BCA, CMP, , 2776-04, 1987-08 #### [facility] ([id number]) [address] [place] [address] Sodium [Moles/Vol] 142 mmol/L Normal 134-146 [facility] Comment on above: Performed By: #### C BCA, CMP, , 2776-04, 1987-08 #### [facility] ([id number]) [address], [address] [place] [address] Urea nitrogen [Mass/Vol] 21 mg/dL Normal 5-23 [facility] Comment on above: Performed By: #### C BCA, CMP, , 2776-04, 1987-08 #### [facility] ([id number]) [address], [address] [place] [address] CRP [Mass/Vol]on 12-19-2023 C REACTIVE PROTEIN 0.8 mg/dL High 0.000-0.7 4 4 [facility] Comment on above: Performed By: #### C VIRGILIO CMP, , 2776-04, 1987-08 #### [facility] ([id number]) [address] [place] [address] ESR Photometric method (Bld) [Velocity]on 12-19-2023 ESR, ERYTHROCYTE SEDIMENTATION RATE 67 mm/h High 0-30 [facility] Comment on above: Performed By: #### C VIRGILIO, CMP, , 2776-04, 1987-08 #### [facility] ([id number]) [address], [address] [place] [address] Neutrophil cytoplasmic Ab pa selvin IF (S)on 12-19-2023 c-ANCA Negative Normal Negative [facility] Comment on above: Performed By: #### C VIRGILIO EDEL, , 2776-04, 1987-08 #### [facility] ([id number]) [address], [address] [place] [address] p-ANCA Positive Abnormal Negative [facility] Comment on above: Result Comment: [...] by: [facility] [address] [place] [address] Biogeographer: Ledy Son Ph.D.; CLIA# [id number] Performed By: #### C VIRGILIO, CMP, , 2776-04, 1987-08 #### [facility] ([id number]) [address] [place] [address] CBC AND AUTO DIFFon 11-07-19 24 ABSOLUTE BASOPHIL 0.0 X10E9/L Normal 0.0-0.2 [facility] Comment on above: Performed By: #### C BCA, CMP, , 2776-04, 1987-08 #### [facility] ([id number]) [address], [address] [place] [address] ABSOLUTE NEUTROPHIL 12.2 X10E9/L High 1.5-6.6 [facility] Comment on above: Performed By: #### C BCA, CMP, , 2776-04, 1987-08 #### [facility] ([id number]) [address], [address] [place] [address] Basophils/100 WBC (Bld) 0.2 % Normal [facility] Comment on above: Performed By: #### C BCA, CMP, , 2776-04, 1987-08 #### [facility] ([id number]) [address], [address] [place] [address] Eosinophils (Bld) [#/Vol] 0.0 10*3/uL Normal 0.0-0.4 [facility] Comment on above: Performed By: #### C BCA, CMP, , 2776-04, 1987-08 #### [facility] ([id number]) [address], [address] [place] [address] Eosinophils/100 WBC (Bld) 0.0 % Normal [facility] Comment on above: Performed By: #### C BCA, CMP, , 2776-04, 1987-08 #### [facility] ([id number]) [address], [address] [place] [address] Erythrocyte distribution width (RBC) [Ratio] 15.6 % High 11.5-15.0 [facility] Comment on above: Performed By: #### C BCA, CMP, , 2776-04, 1987-08 #### [facility] ([id number]) [address], [address] [place] [address] Hematocrit (Bld) [Volume fraction] 32.0 % Low 35-47 [facility] Comment on above: Performed By: #### Shahla POOLE CMP, , 2776-04, 1987-08 #### [facility] ([id number]) [address] [place] [address] Hemoglobin (Bld) [Mass/Vol] 10.4 g/dL Low 11.7-15.5 [facility] Comment on above: Performed By: #### Shahla POOLE CMP, , 2776-04, 1987-08 #### [facility] ([id number]) [address] [place] [address] Lymphocytes (Bld) [#/Vol] 0.3 10*3/uL Low 1.0-3.5 [facility] Comment on above: Performed By: #### Shahla POOLE CMP, , 2776-04, 1987-08 #### [facility] ([id number]) [address] [place] [address] Lymphocytes/100 WBC (Bld) 2.6 % Normal [facility] Comment on above: Performed By: #### Shahla POOLE CMP, , 2776-04, 1987-08 #### [facility] ([id number]) [address], [address] [place] [address] MCH (RBC) [Entitic mass] 27.6 pg Normal 27-34 [facility] Comment on above: Performed By: #### Shahla BCA, CMP, , 2776-04, 1987-08 #### [facility] ([id number]) [address] [place] [address] MCHC (RBC) [Mass/Vol] 32.4 g/dL Normal 32-36 [facility] Comment on above: Performed By: #### C BCA, CMP, , 2776-04, 1987-08 #### [facility] ([id number]) [address] [place] [address] MCV (RBC) [Entitic vol] 85 fL Normal 80-100 [facility] Comment on above: Performed By: #### Shahla BCA, CMP, , 2776-04, 1987-08 #### [facility] ([id number]) [address] [place] [address] Monocytes (Bld) [#/Vol] 0.2 10*3/uL Normal 0-0.9 [facility] Comment on above: Performed By: #### Shahla BCA, CMP, , 2776-04, 1987-08 #### [facility] ([id number]) [address] [place] [address] Monocytes/100 WBC (Bld) 1.8 % Normal [facility] Comment on above: Performed By: #### Shahla POOLE, CMP, , 2776-04, 1987-08 #### [facility] ([id number]) [address] [place] [address] Neutrophils/100 WBC (Bld) 95.4 % Normal [facility] Comment on above: Performed By: #### Shahla BCA, CMP, , 2776-04, 1987-08 #### [facility] ([id number]) [address] [place] [address] Platelet mean volume (Bld) [Entitic vol] 9.1 fL Normal 7-12 [facility] Comment on above: Performed By: #### Shahla BCA, CMP, , 2776-04, 1987-08 #### [facility] ([id number]) [address] [place] [address] Platelets (Bld) [#/Vol] 183 10*3/uL Normal 150-450 [facility] Comment on above: Performed By: #### C BCA, CMP, , 2776-04, 1987-08 #### [facility] ([id number]) [address] [place] [address] RBC COUNT 3.76 X10E12/L Low 3.80-5.20 [facility] Comment on above: Performed By: #### C BCA, CMP, , 2776-04, 1987-08 #### [facility] ([id number]) [address] [place] [address] WBC (Bld) [#/Vol] 12.8 10*3/uL High 4.0-11.0 [facility] Comment on above: Performed By: #### C BCA, CMP, , 2776-04, 1987-08 #### [facility] ([id number]) [address] [place] [address] COMPREHENSIVE METABOLIC PANE Phu 11-07-2023 Albumin [Mass/Vol] 3.5 g/dL Normal 3.2-5.3 [facility] Comment on above: Performed By: #### C BCA, CMP, , 2776-04, 1987-08 #### [facility] ([id number]) [address] [place] [address] ALP [Catalytic activity/Vol] 46 U/L Normal 39-130 [facility] Comment on above: Performed By: #### C BCA, CMP, , 2776-04, 1987-08 #### [facility] ([id number]) [address] [place] [address] ALT [Catalytic activity/Vol] 31 U/L Normal 0-31 [facility] Comment on above: Performed By: #### C BCA, CMP, , 2776-04, 1987-08 #### [facility] ([id number]) [address] [place] [address] Anion gap [Moles/Vol] 9 mmol/L Normal 5-15 [facility] Comment on above: Performed By: #### C BCA, CMP, , 2776-04, 1987-08 #### [facility] ([id number]) [address] [place] [address] AST [Catalytic activity/Vol] 10 U/L Normal 0-41 [facility] Comment on above: Performed By: #### C BCA, CMP, , 2776-04, 1987-08 #### [facility] ([id number]) [address] [place] [address] Bilirubin [Mass/Vol] 0.5 mg/dL Normal 0.3-1.2 [facility] Comment on above: Performed By: #### C BCA, CMP, , 2776-04, 1987-08 #### [facility] ([id number]) [address] [place] [address] Calcium [Mass/Vol] 9.1 mg/dL Normal 8.5-10.5 [facility] Comment on above: Performed By: #### C BCA, CMP, , 2776-04, 1987-08 #### [facility] ([id number]) [address] [place] [address] Chloride [Moles/Vol] 104 mmol/L Normal 98-109 [facility] Comment on above: Performed By: #### C BCA, CMP, , 2776-04, 1987-08 #### [facility] ([id number]) [address] [place] [address] CO2 [Moles/Vol] 26 mmol/L Normal 22-32 [facility] Comment on above: Performed By: #### C BCA, CMP, , 2776-04, 1987-08 #### [facility] ([id number]) [address] [place] [address] Creatinine [Mass/Vol] 1.60 mg/dL High 0.40-1.00 [facility] Comment on above: Result Comment: METH OD TRACEABLE TO IDMS STANDARD Performed By: #### C VIRGILIO, CMP, , 2776-04, 1987-08 #### [facility] ([id number]) [address] [place] [address] GFR/1.73 sq M.predicted among non-blacks MDRD (S/P/Bld) [Vol rate/Area] 37 mL/min/{1.73_m2} Low >59 [facility] Comment on above: Result Comment: Reported eGFR is based on the CKD-EPI 2020 equation that does not use a race coefficient. Performed By: #### C VIRGILIO, CMP, , 2776-04, 1987-08 #### [facility] ([id number]) [address] [place] [address] Glucose [Mass/Vol] 119 mg/dL High 65-99 [facility] Comment on above: Performed By: #### C VIRGILIO, CMP, , 2776-04, 1987-08 #### [facility] ([id number]) [address] [place] [address] Potassium [Moles/Vol] 5.2 mmol/L High 3.5-5.0 [facility] Comment on above: Performed By: #### C BCA, CMP, , 2776-04, 1987-08 #### [facility] ([id number]) [address] [place] [address] Protein [Mass/Vol] 5.3 g/dL Low 6.0-8.0 [facility] Comment on above: Performed By: #### C BCA, CMP, , 2776-04, 1987-08 #### [facility] ([id number]) [address] [place] [address] Sodium [Moles/Vol] 139 mmol/L Normal 134-146 [facility] Comment on above: Performed By: #### C BCA, CMP, , 2776-04, 1987-08 #### [facility] ([id number]) [address] [place] [address] Urea nitrogen [Mass/Vol] 52 mg/dL High 5-23 [facility] Comment on above: Performed By: #### C BCA, CMP, , 2776-04, 1987-08 #### [facility] ([id number]) [address] [place] [address] M. tuberculosis stim IFN-g p tiffanie (Bld)on 11-07-2023 Mitogen minus Nil Result 0.07 IU/mL Normal [facility] Nil Result 0.01 IU/mL Normal [facility] Comment on above: Result Comment: NOTE Test Performed by: [facility] [address] [place] [address] Biogeographer: Ledy Son Ph.D.; CLIA# [id number] QuantiFERON-Tb Gold Plus Result Indeterminate Abnormal Negative [facility] Comment on above: Result Comment: NOTE Indeterminate due to a low interferon-gamma level in the mitogen (positive control) tube. This may occur due to a low lymphocyte count, reduced lymphocyte activity or inability of the patient's lymphocytes to generate interferon-gamma. The reference range for the 'Mitogen minus Nil Result' is >=0.5 IU/mL. TB1 Ag minus Nil Result 0.00 IU/mL Normal [facility] TB2 Ag minus Nil Result 0.00 IU/mL Normal [facility] BASIC METABOLIC PANLon 11-01 Anion gap [Moles/Vol] 9 mmol/L Normal 5-15 [facility] Comment on above: Performed By: #### 8 9579-7 #### [facility] ([id number]) [address] [place] [id number] Calcium [Mass/Vol] 8.5 mg/dL Normal 8.5-10.5 [facility] Comment on above: Performed By: #### 8 9579-7 #### [facility] ([id number]) [address] [place] [address] Chloride [Moles/Vol] 108 mmol/L Normal 98-109 [facility] Comment on above: Performed By: #### 8 9579-7 #### [facility] ([id number]) [address] [place] [address] 06360 CO2 [Moles/Vol] 24 mmol/L Normal 22-32 [facility] Comment on above: Performed By: #### 8 9579-7 #### [facility] ([id number]) [address] [place] [address]4948 Creatinine [Mass/Vol] 1.59 mg/dL High 0.40-1.00 [facility] Comment on above: Result Comment: METH OD TRACEABLE TO IDMS STANDARD Performed By: #### 8 9579-7 #### [facility] ([id number]) [address] [place] [address] 10147 GFR/1.73 sq M.predicted among non-blacks MDRD (S/P/Bld) [Vol rate/Area] 37 mL/min/{1.73_m2} Low >59 [facility] Comment on above: Result Comment: Reported eGFR is based on the CKD-EPI 1 equation that does not use a race coefficient. Performed By: #### 8 9579-7 #### [facility] ([id number]) [address] [place], [place] [address] Glucose [Mass/Vol] 109 mg/dL High 65-99 [facility] Comment on above: Performed By: #### 8 9579-7 #### [facility] ([id number]) [address] [place] [address] Potassium [Moles/Vol] 3.9 mmol/L Normal 3.5-5.0 [facility] Comment on above: Performed By: #### 8 9579-7 #### [facility] ([id number]) [address] [place] [address] Sodium [Moles/Vol] 141 mmol/L Normal 134-146 [facility] Comment on above: Performed By: #### 8 9579-7 #### [facility] ([id number]) [address] [place] [address] Urea nitrogen [Mass/Vol] 40 mg/dL High 5-23 [facility] Comment on above: Performed By: #### 8 9579-7 #### [facility] ([id number]) [address] [place] [address] CBC AND AUTO DIFFon 10-25-19 24 ABSOLUTE BASOPHIL 0.1 X10E9/L Normal 0.0-0.2 [facility] Comment on above: Performed By: #### C VIRGILIO, CMP, , 2776-04, 1987-08 #### [facility] ([id number]) [address], [address] [place] [address] ABSOLUTE NEUTROPHIL 6.5 X10E9/L Normal 1.5-6.6 [facility] Comment on above: Performed By: #### C BCA, CMP, , 2776-04, 1987-08 #### [facility] ([id number]) [address] [place] [address] Basophils/100 WBC (Bld) 0.6 % Normal [facility] Comment on above: Performed By: #### C BCA, CMP, , 2776-04, 1987-08 #### [facility] ([id number]) [address], [address] [place] [address] Eosinophils (Bld) [#/Vol] 0.0 10*3/uL Normal 0.0-0.4 [facility] Comment on above: Performed By: #### C BCA, CMP, , 2776-04, 1987-08 #### [facility] ([id number]) [address], [address] [place] [address] Eosinophils/100 WBC (Bld) 0.4 % Normal [facility] Comment on above: Performed By: #### C BCA, CMP, , 2776-04, 1987-08 #### [facility] ([id number]) [address], [address] [place] [address] Erythrocyte distribution width (RBC) [Ratio] 14.5 % Normal 11.5-15.0 [facility] Comment on above: Performed By: #### Shahla POOLE, CMP, , 2776-04, 1987-08 #### [facility] ([id number]) [address] [address] [place] [address] Hematocrit (Bld) [Volume fraction] 30.5 % Low 35-47 [facility] Comment on above: Performed By: #### C BCA, CMP, , 2776-04, 1987-08 #### [facility] ([id number]) [address], [address] [place] [address] Hemoglobin (Bld) [Mass/Vol] 10.5 g/dL Low 11.7-15.5 [facility] Comment on above: Performed By: #### C BCA, CMP, , 2776-04, 1987-08 #### [facility] ([id number]) [address], [address] [place] [address] Lymphocytes (Bld) [#/Vol] 1.4 10*3/uL Normal 1.0-3.5 [facility] Comment on above: Performed By: #### Shahla POOLE CMP, , 2776-04, 1987-08 #### [facility] ([id number]) [address] [address] Lymphocytes/100 WBC (Bld) 16.2 % Normal [facility] Comment on above: Performed By: #### Shahla POOLE, CMP, , 2776-04, 1987-08 #### [facility] ([id number]) [address] [address] MCH (RBC) [Entitic mass] 28.5 pg Normal 27-34 [facility] Comment on above: Performed By: #### Shahla BCA, CMP, , 2776-04, 1987-08 #### [facility] ([id number]) [address] [address] MCHC (RBC) [Mass/Vol] 34.4 g/dL Normal 32-36 [facility] Comment on above: Performed By: #### Shahla BCA, CMP, , 2776-04, 1987-08 #### [facility] ([id number]) [address] [address] MCV (RBC) [Entitic vol] 83 fL Normal 80-100 [facility] Comment on above: Performed By: #### Shahla BCA, CMP, , 2776-04, 1987-08 #### [facility] ([id number]) [address] [address] Monocytes (Bld) [#/Vol] 0.5 10*3/uL Normal 0-0.9 [facility] Comment on above: Performed By: #### Shahla BCA, CMP, , 2776-04, 1987-08 #### [facility] ([id number]) [address], [address] [place] [address] Monocytes/100 WBC (Bld) 5.9 % Normal [facility] Comment on above: Performed By: #### Shahla BCA, CMP, , 2776-04, 1987-08 #### [facility] ([id number]) [address], [address] [place] [address] Neutrophils/100 WBC (Bld) 76.9 % Normal [facility] Comment on above: Performed By: #### Shahla BCA, CMP, , 2776-04, 1987-08 #### [facility] ([id number]) [address], [address] [place] [address] Platelet mean volume (Bld) [Entitic vol] 9.1 fL Normal 7-12 [facility] Comment on above: Performed By: #### Shahla BCA, CMP, , 2776-04, 1987-08 #### [facility] ([id number]) [address], [address] [place] [address] Platelets (Bld) [#/Vol] 248 10*3/uL Normal 150-450 [facility] Comment on above: Performed By: #### Shahla BCA, CMP, , 2776-04, 1987-08 #### [facility] ([id number]) [address], [address] [place] [address] RBC COUNT 3.68 X10E12/L Low 3.80-5.20 [facility] Comment on above: Performed By: #### Shahla BCA, CMP, , 2776-04, 1987-08 #### [facility] ([id number]) [address], [address] [place] [address] RBC morphology finding Nom (Bld) REVIEWED Normal [facility] Comment on above: Performed By: #### C BCA, CMP, , 2776-04, 1987-08 #### [facility] ([id number]) [address], [address] [place] [address] WBC (Bld) [#/Vol] 8.4 10*3/uL Normal 4.0-11.0 [facility] Comment on above: Performed By: #### C BCA, CMP, , 2776-04, 1987-08 #### [facility] ([id number]) [address], [address] [place] [address] COMPREHENSIVE METABOLIC PANE Phu 10-25-2023 Albumin [Mass/Vol] 3.1 g/dL Low 3.2-5.3 [facility] Comment on above: Performed By: #### C BCA, CMP, , 2776-04, 1987-08 #### [facility] ([id number]) [address], [address] [place] [address] ALP [Catalytic activity/Vol] 35 U/L Low 39-130 [facility] Comment on above: Performed By: #### C BCA, CMP, , 2776-04, 1987-08 #### [facility] ([id number]) [address], [address] [place] [address] ALT [Catalytic activity/Vol] 8 U/L Normal 0-31 [facility] Comment on above: Performed By: #### C BCA, CMP, , 2776-04, 1987-08 #### [facility] ([id number]) [address], [address] [place] [address] Anion gap [Moles/Vol] 9 mmol/L Normal 5-15 [facility] Comment on above: Performed By: #### C BCA, CMP, , 2776-04, 1987-08 #### [facility] ([id number]) [address], [address] [place] [address] AST [Catalytic activity/Vol] 10 U/L Normal 0-41 [facility] Comment on above: Performed By: #### C BCA, CMP, , 2776-04, 1987-08 #### [facility] ([id number]) [address], [address] [place] [address] Bilirubin [Mass/Vol] 0.3 mg/dL Normal 0.3-1.2 [facility] Comment on above: Performed By: #### C BCA, CMP, , 2776-04, 1987-08 #### [facility] ([id number]) [address], [address] [place] [address] Calcium [Mass/Vol] 8.6 mg/dL Normal 8.5-10.5 [facility] Comment on above: Performed By: #### C BCA, CMP, , 2776-04, 1987-08 #### [facility] ([id number]) [address], [address] [place] [address] Chloride [Moles/Vol] 106 mmol/L Normal 98-109 [facility] Comment on above: Performed By: #### C BCA, CMP, , 2776-04, 1987-08 #### [facility] ([id number]) [address], [address] [place] [address] CO2 [Moles/Vol] 25 mmol/L Normal 22-32 [facility] Comment on above: Performed By: #### C BCA, CMP, , 2776-04, 1987-08 #### [facility] ([id number]) [address], [address] [place] [address] Creatinine [Mass/Vol] 2.12 mg/dL High 0.40-1.00 [facility] Comment on above: Result Comment: METH OD TRACEABLE TO IDMS STANDARD Performed By: #### C BCA, CMP, , 2776-04, 1987-08 #### [facility] ([id number]) [address], [facility] [address] [place] [address] GFR/1.73 sq M.predicted among non-blacks MDRD (S/P/Bld) [Vol rate/Area] 26 mL/min/{1.73_m2} Low >59 [facility] Comment on above: Result Comment: Reported eGFR is based on the CKD-EPI 2020 equation that does not use a race coefficient. Performed By: #### C VIRGILIO CMP, , 2776-04, 1987-08 #### [facility] ([id number]) [address], [address] [place] [address] Glucose [Mass/Vol] 81 mg/dL Normal 65-99 [facility] Comment on above: Performed By: #### C VIRGILIO CMP, , 2776-04, 1987-08 #### [facility] ([id number]) [address], [address] [place] [address] Potassium [Moles/Vol] 4.1 mmol/L Normal 3.5-5.0 [facility] Comment on above: Performed By: #### C VIRGILIO, CMP, , 2776-04, 1987-08 #### [facility] ([id number]) [address], [address] [place] [address] Protein [Mass/Vol] 4.9 g/dL Low 6.0-8.0 [facility] Comment on above: Performed By: #### C BCA, CMP, , 2776-04, 1987-08 #### [facility] ([id number]) [address], [address] [place] [address] Sodium [Moles/Vol] 140 mmol/L Normal 134-146 [facility] Comment on above: Performed By: #### C BCA, CMP, , 2776-04, 1987-08 #### [facility] ([id number]) [address], [address] [place] [address] Urea nitrogen [Mass/Vol] 58 mg/dL High 5-23 [facility] Comment on above: Performed By: #### C VIRGILIO, CMP, , 2776-04, 1987-08 #### [facility] ([id number]) [address], [address] [place] [address] Calcium.ionized (Bld) [Mass/ Vol]on 10-25-2023 IONIZED CALCIUM 4.8 mg/dL Normal 4.5-5.3 [facility] Comment on above: Performed By: #### C VIRGILIO, CMP, , 2776-04, 1987-08 #### [facility] ([id number]) [address], [address] [place] [address] MAGNESIUMon 10-25-2023 Magnesium [Mass/Vol] 2.1 mg/dL Normal 1.8-2.6 [facility] Comment on above: Performed By: #### C VIRGILIO, CMP, , 2776-04, 1987-08 #### [facility] ([id number]) [address], [address] [place] [address] PHOSPHORUSon 10-25-2023 Phosphate [Mass/Vol] 3.5 mg/dL Normal 2.4-4.9 [facility] Comment on above: Performed By: #### C BCA, CMP, , 2776-04, 1987-08 #### [facility] ([id number]) [address], [address] [place] [address] CBC AND AUTO DIFFon 10-24-19 24 ABSOLUTE BASOPHIL 0.0 X10E9/L Normal 0.0-0.2 [facility] Comment on above: Performed By: #### Shahla BCA, CMP, , 2776-04, 1987-08 #### [facility] ([id number]) [address], [address] [place] [address] ABSOLUTE NEUTROPHIL 7.2 X10E9/L High 1.5-6.6 [facility] Comment on above: Performed By: #### C BCA, CMP, , 2776-04, 1987-08 #### [facility] ([id number]) [address], [address] [place] [address] Basophils/100 WBC (Bld) 0.1 % Normal [facility] Comment on above: Performed By: #### C BCA, CMP, , 2776-04, 1987-08 #### [facility] ([id number]) [address], [address] [place] [address] Eosinophils (Bld) [#/Vol] 0.0 10*3/uL Normal 0.0-0.4 [facility] Comment on above: Performed By: #### C BCA, CMP, , 2776-04, 1987-08 #### [facility] ([id number]) [address], [address] [place] [address] Eosinophils/100 WBC (Bld) 0.2 % Normal [facility] Comment on above: Performed By: #### C BCA, CMP, , 2776-04, 1987-08 #### [facility] ([id number]) [address] [place] [address] Erythrocyte distribution width (RBC) [Ratio] 14.7 % Normal 11.5-15.0 [facility] Comment on above: Performed By: #### C BCA, CMP, , 2776-04, 1987-08 #### [facility] ([id number]) [address], [address] [place] [address] Hematocrit (Bld) [Volume fraction] 31.4 % Low 35-47 [facility] Comment on above: Performed By: #### C BCA, CMP, , 2776-04, 1987-08 #### [facility] ([id number]) [address], [address] [place] [address] Hemoglobin (Bld) [Mass/Vol] 10.5 g/dL Low 11.7-15.5 [facility] Comment on above: Performed By: #### Shahla BCA, CMP, , 2776-04, 1987-08 #### [facility] ([id number]) [address] [place] [address] Lymphocytes (Bld) [#/Vol] 3.1 10*3/uL Normal 1.0-3.5 [facility] Comment on above: Performed By: #### Shahla BCA, CMP, , 2776-04, 1987-08 #### [facility] ([id number]) [address], [address] [place] [address] Lymphocytes/100 WBC (Bld) 27.5 % Normal [facility] Comment on above: Performed By: #### Shahla POOLE, CMP, , 2776-04, 1987-08 #### [facility] ([id number]) [address], [address] [place] [address] MCH (RBC) [Entitic mass] 28.1 pg Normal 27-34 [facility] Comment on above: Performed By: #### Shahla BCA, CMP, , 2776-04, 1987-08 #### [facility] ([id number]) [address], [address] [place] [address] MCHC (RBC) [Mass/Vol] 33.3 g/dL Normal 32-36 [facility] Comment on above: Performed By: #### Shahla BCA, CMP, , 2776-04, 1987-08 #### [facility] ([id number]) [address], [address] [place] [address] MCV (RBC) [Entitic vol] 84 fL Normal 80-100 [facility] Comment on above: Performed By: #### C BCA, CMP, , 2776-04, 1987-08 #### [facility] ([id number]) [address], [address] [place] [address] Monocytes (Bld) [#/Vol] 0.8 10*3/uL Normal 0-0.9 [facility] Comment on above: Performed By: #### C BCA, CMP, , 2776-04, 1987-08 #### [facility] ([id number]) [address], [address] [place] [address] Monocytes/100 WBC (Bld) 7.6 % Normal [facility] Comment on above: Performed By: #### Shahla BCA, CMP, , 2776-04, 1987-08 #### [facility] ([id number]) [address], [address] [place] [address] Neutrophils/100 WBC (Bld) 64.6 % Normal [facility] Comment on above: Performed By: #### Shahla BCA, CMP, , 2776-04, 1987-08 #### [facility] ([id number]) [address], [address] [place] [address] Platelet mean volume (Bld) [Entitic vol] 9.6 fL Normal 7-12 [facility] Comment on above: Performed By: #### Shahla BCA, CMP, , 2776-04, 1987-08 #### [facility] ([id number]) [address], [address] [place] [address] Platelets (Bld) [#/Vol] 304 10*3/uL Normal 150-450 [facility] Comment on above: Performed By: #### Shahla BCA, CMP, , 2776-04, 1987-08 #### [facility] ([id number]) [address], [address] [place] [address] RBC COUNT 3.73 X10E12/L Low 3.80-5.20 [facility] Comment on above: Performed By: #### C BCA, CMP, , 2776-04, 1987-08 #### [facility] ([id number]) [address], [address] [place] [address] WBC (Bld) [#/Vol] 11.2 10*3/uL High 4.0-11.0 [facility] Comment on above: Performed By: #### C BCA, CMP, , 2776-04, 1987-08 #### [facility] ([id number]) [address], [address] [place] [address] COMPREHENSIVE METABOLIC PANE Puh 10-24-2023 Albumin [Mass/Vol] 3.2 g/dL Normal 3.2-5.3 [facility] Comment on above: Performed By: #### C BCA, CMP, , 2776-04, 1987-08 #### [facility] ([id number]) [address] [place] [address] ALP [Catalytic activity/Vol] 37 U/L Low 39-130 [facility] Comment on above: Performed By: #### C BCA, CMP, , 2776-04, 1987-08 #### [facility] ([id number]) [address] [place] [address] ALT [Catalytic activity/Vol] 8 U/L Normal 0-31 [facility] Comment on above: Performed By: #### C BCA, CMP, , 2776-04, 1987-08 #### [facility] ([id number]) [address], [address] [place] [address] Anion gap [Moles/Vol] 11 mmol/L Normal 5-15 [facility] Comment on above: Performed By: #### C BCA, CMP, , 2776-04, 1987-08 #### [facility] ([id number]) [address], [address] [place] [address] AST [Catalytic activity/Vol] 9 U/L Normal 0-41 [facility] Comment on above: Performed By: #### C BCA, CMP, , 2776-04, 1987-08 #### [facility] ([id number]) [address] [place] [address] Bilirubin [Mass/Vol] 0.3 mg/dL Normal 0.3-1.2 [facility] Comment on above: Performed By: #### C BCA, CMP, , 2776-04, 1987-08 #### [facility] ([id number]) [address] [place] [address] Calcium [Mass/Vol] 8.7 mg/dL Normal 8.5-10.5 [facility] Comment on above: Performed By: #### C BCA, CMP, , 2776-04, 1987-08 #### [facility] ([id number]) [address] [place] [address] Chloride [Moles/Vol] 103 mmol/L Normal 98-109 [facility] Comment on above: Performed By: #### C BCA, CMP, , 2776-04, 1987-08 #### [facility] ([id number]) [address] [place] [address] CO2 [Moles/Vol] 26 mmol/L Normal 22-32 [facility] Comment on above: Performed By: #### C BCA, CMP, , 2776-04, 1987-08 #### [facility] ([id number]) [address] [address] Creatinine [Mass/Vol] 2.33 mg/dL High 0.40-1.00 [facility] Comment on above: Result Comment: METH OD TRACEABLE TO IDMS STANDARD Performed By: #### C EDEL POOLE, , 2776-04, 1987-08 #### [facility] ([id number]) [address] [address] GFR/1.73 sq M.predicted among non-blacks MDRD (S/P/Bld) [Vol rate/Area] 24 mL/min/{1.73_m2} Low >59 [facility] Comment on above: Result Comment: Reported eGFR is based on the CKD-EPI 2020 equation that does not use a race coefficient. Performed By: #### C EDEL POOLE, , 2776-04, 1987-08 #### [facility] ([id number]) [address] [address] Glucose [Mass/Vol] 80 mg/dL Normal 65-99 [facility] Comment on above: Performed By: #### C EDEL POOLE, , 2776-04, 1987-08 #### [facility] ([id number]) [address] [address] Potassium [Moles/Vol] 3.9 mmol/L Normal 3.5-5.0 [facility] Comment on above: Performed By: #### C VIRGILIO CMP, , 2776-04, 1987-08 #### [facility] ([id number]) [address] [address] Protein [Mass/Vol] 5.1 g/dL Low 6.0-8.0 [facility] Comment on above: Performed By: #### C VIRGILIO CMP, , 2776-04, 1987-08 #### [facility] ([id number]) [address] [place] [address] Sodium [Moles/Vol] 140 mmol/L Normal 134-146 [facility] Comment on above: Performed By: #### C VIRGILIO CMP, , 2776-04, 1987-08 #### [facility] ([id number]) [address] [place] [address] Urea nitrogen [Mass/Vol] 67 mg/dL High 5-23 [facility] Comment on above: Performed By: #### C VIRGILIO, CMP, , 2776-04, 1987-08 #### [facility] ([id number]) [address] [place] [address] Calcium.ionized (Bld) [Mass/ Vol]on 10-24-2023 IONIZED CALCIUM 4.7 mg/dL Normal 4.5-5.3 [facility] Comment on above: Performed By: #### Shahla POOLE CMP, , 2776-04, 1987-08 #### [facility] ([id number]) [address] [place] [address] HBV core Ab IA Qlon 10-24-19 ANTI HBc Negative Normal NEG [facility] Comment on above: Performed By: #### Sahhla POOLE, CMP, , 2776-04, 1987-08 #### [facility] ([id number]) [address] [place] [address] HBV surface Ag IA Qlon 10-23 HEPATITIS B SURF AG Negative Normal NEG [facility] Comment on above: Performed By: #### C VIRGILIO, CMP, , 2776-04, 1987-08 #### [facility] ([id number]) [address] [place] [address] MAGNESIUMon 10-24-2023 Magnesium [Mass/Vol] 2.2 mg/dL Normal 1.8-2.6 [facility] Comment on above: Performed By: #### C VIRGILIO, CMP, , 2776-04, 1987-08 #### [facility] ([id number]) [address] [place] [address] PHOSPHORUSon 10-24-2023 Phosphate [Mass/Vol] 3.4 mg/dL Normal 2.4-4.9 [facility] Comment on above: Performed By: #### C BCA, CMP, , 2776-04, 1987-08 #### [facility] ([id number]) [address] [place] [address] CBC AND AUTO DIFFon 10-23-19 24 Band form neutrophils/100 WBC (Bld) 2.0 % Normal [facility] Comment on above: Performed By: #### Shahla POOLE, CMP, , 2776-04, 1987-08 #### [facility] ([id number]) [address] [place] [address] Erythrocyte distribution width (RBC) [Ratio] 14.6 % Normal 11.5-15.0 [facility] Comment on above: Performed By: #### Shahla POOLE, CMP, , 2776-04, 1987-08 #### [facility] ([id number]) [address], [facility] [address] [place] [address] Hematocrit (Bld) [Volume fraction] 31.6 % Low 35-47 [facility] Comment on above: Performed By: #### Shahla BCA, CMP, , 2776-04, 1987-08 #### [facility] ([id number]) [address], [facility] [address] [place] [address] Hemoglobin (Bld) [Mass/Vol] 10.5 g/dL Low 11.7-15.5 [facility] Comment on above: Performed By: #### Shahla BCA, CMP, , 2776-04, 1987-08 #### [facility] ([id number]) [address], [address] [place] [address] Lymphocytes (Bld) [#/Vol] 2.0 10*3/uL Normal 1.0-3.5 [facility] Comment on above: Performed By: #### Shahla POOLE CMP, , 2776-04, 1987-08 #### [facility] ([id number]) [address], [address] [place] [address] Lymphocytes/100 WBC (Bld) 21.0 % Normal [facility] Comment on above: Performed By: #### Shahla POOLE, CMP, , 2776-04, 1987-08 #### [facility] ([id number]) [address], [address] [place] [address] MCH (RBC) [Entitic mass] 28.2 pg Normal 27-34 [facility] Comment on above: Performed By: #### Shahla POOLE, CMP, , 2776-04, 1987-08 #### [facility] ([id number]) [address], [address] [place] [address] MCHC (RBC) [Mass/Vol] 33.3 g/dL Normal 32-36 [facility] Comment on above: Performed By: #### Shahla POOLE CMP, , 2776-04, 1987-08 #### [facility] ([id number]) [address], [address] [place] [address] MCV (RBC) [Entitic vol] 85 fL Normal 80-100 [facility] Comment on above: Performed By: #### Shahla BCA, CMP, , 2776-04, 1987-08 #### [facility] ([id number]) [address], [address] [place] [address] Monocytes (Bld) [#/Vol] 1.8 10*3/uL High 0-0.9 [facility] Comment on above: Performed By: #### C BCA, CMP, , 2776-04, 1987-08 #### [facility] ([id number]) [address], [address] [place] [address] Monocytes/100 WBC (Bld) 19.0 % Normal [facility] Comment on above: Performed By: #### Shahla BCA, CMP, , 2776-04, 1987-08 #### [facility] ([id number]) [address], [address] [place] [address] Neutrophils (Bld) [#/Vol] 5.8 10*3/uL Normal 1.5-6.6 [facility] Comment on above: Performed By: #### Shahla BCA, CMP, , 2776-04, 1987-08 #### [facility] ([id number]) [address], [address] [place] [address] Platelet mean volume (Bld) [Entitic vol] 9.3 fL Normal 7-12 [facility] Comment on above: Performed By: #### Shahla BCA, CMP, , 2776-04, 1987-08 #### [facility] ([id number]) [address], [address] [place] [address] Platelets (Bld) [#/Vol] 297 10*3/uL Normal 150-450 [facility] Comment on above: Performed By: #### Shahla BCA, CMP, , 2776-04, 1987-08 #### [facility] ([id number]) [address], [address] [place] [address] RBC COUNT 3.73 X10E12/L Low 3.80-5.20 [facility] Comment on above: Performed By: #### Shahla BCA, CMP, , 2776-04, 1987-08 #### [facility] ([id number]) [address], [address] [place] [address] RBC morphology finding Nom (Bld) NORMAL Normal [facility] Comment on above: Performed By: #### C BCA, CMP, , 2776-04, 1987-08 #### [facility] ([id number]) [address], [address] [place] [address] SEG NEUTROPHIL 58.0 % Normal [facility] Comment on above: Performed By: #### C BCA, CMP, , 2776-04, 1987-08 #### [facility] ([id number]) [address], [address] [place] [address] WBC (Bld) [#/Vol] 9.6 10*3/uL Normal 4.0-11.0 [facility] Comment on above: Performed By: #### C BCA, CMP, , 2776-04, 1987-08 #### [facility] ([id number]) [address], [address] [place] [address] [address] [facility] 10-23-2023 Albumin [Mass/Vol] 3.2 g/dL Normal 3.2-5.3 [facility] Comment on above: Performed By: #### C BCA, CMP, , 2776-04, 1987-08 #### [facility] ([id number]) [address], [address] [place] [address] ALP [Catalytic activity/Vol] 38 U/L Low 39-130 [facility] Comment on above: Performed By: #### C BCA, CMP, , 2776-04, 1987-08 #### [facility] ([id number]) [address], [address] [place] [address] ALT [Catalytic activity/Vol] 10 U/L Normal 0-31 [facility] Comment on above: Performed By: #### C BCA, CMP, , 2776-04, 1987-08 #### [facility] ([id number]) [address], [address] [place] [address] Anion gap [Moles/Vol] 9 mmol/L Normal 5-15 [facility] Comment on above: Performed By: #### C BCA, CMP, , 2776-04, 1987-08 #### [facility] ([id number]) [address], [address] [place] [address] AST [Catalytic activity/Vol] 10 U/L Normal 0-41 [facility] Comment on above: Performed By: #### C BCA, CMP, , 2776-04, 1987-08 #### [facility] ([id number]) [address], [address] [place] [address] Bilirubin [Mass/Vol] 0.3 mg/dL Normal 0.3-1.2 [facility] Comment on above: Performed By: #### C BCA, CMP, , 2776-04, 1987-08 #### [facility] ([id number]) [address], [address] [place] [address] Calcium [Mass/Vol] 8.7 mg/dL Normal 8.5-10.5 [facility] Comment on above: Performed By: #### C BCA, CMP, , 2776-04, 1987-08 #### [facility] ([id number]) [address] [place] [address] Chloride [Moles/Vol] 102 mmol/L Normal 98-109 [facility] Comment on above: Performed By: #### C BCA, CMP, , 2776-04, 1987-08 #### [facility] ([id number]) [address], [address] [place] [address] CO2 [Moles/Vol] 29 mmol/L Normal 22-32 [facility] Comment on above: Performed By: #### C BCA, CMP, , 2776-04, 1987-08 #### [facility] ([id number]) [address], [address] [place] [address] Creatinine [Mass/Vol] 2.68 mg/dL High 0.40-1.00 [facility] Comment on above: Result Comment: METH OD TRACEABLE TO IDMS STANDARD Performed By: #### C EDEL POOLE, , 2776-04, 1987-08 #### [facility] ([id number]) [address], [address] [place] [address] GFR/1.73 sq M.predicted among non-blacks MDRD (S/P/Bld) [Vol rate/Area] 20 mL/min/{1.73_m2} Low >59 [facility] Comment on above: Result Comment: Reported eGFR is based on the CKD-EPI 2020 equation that does not use a race coefficient. Performed By: #### C EDEL POOLE, , 2776-04, 1987-08 #### [facility] ([id number]) [address], [address] [place] [address] Glucose [Mass/Vol] 86 mg/dL Normal 65-99 [facility] Comment on above: Performed By: #### C EDEL POOLE, , 2776-04, 1987-08 #### [facility] ([id number]) [address] [place] [address] Potassium [Moles/Vol] 3.7 mmol/L Normal 3.5-5.0 [facility] Comment on above: Performed By: #### C VIRGILIO CMP, , 2776-04, 1987-08 #### [facility] ([id number]) [address], [address] [place] [address] Protein [Mass/Vol] 5.2 g/dL Low 6.0-8.0 [facility] Comment on above: Performed By: #### C BCA, CMP, , 2776-04, 1987-08 #### [facility] ([id number]) [address], [address] [place] [address] Sodium [Moles/Vol] 140 mmol/L Normal 134-146 [facility] Comment on above: Performed By: #### C BCA, CMP, , 2776-04, 1987-08 #### [facility] ([id number]) [address], [address] [place] [address] Urea nitrogen [Mass/Vol] 72 mg/dL High 5-23 [facility] Comment on above: Performed By: #### C BCA, CMP, , 2776-04, 1987-08 #### [facility] ([id number]) [address], [address] [place] [address] Calcium.ionized (Bld) [Mass/ Vol]on 10-23-2023 IONIZED CALCIUM 4.8 mg/dL Normal 4.5-5.3 [facility] Comment on above: Performed By: #### C VIRGILIO, CMP, , 2776-04, 1987-08 #### [facility] ([id number]) [address], [address] [place] [address] MAGNESIUMon 10-23-2023 Magnesium [Mass/Vol] 2.4 mg/dL Normal 1.8-2.6 [facility] Comment on above: Performed By: #### C BCA, CMP, , 2776-04, 1987-08 #### [facility] ([id number]) [address], [address] [place] [address] PHOSPHORUSon 10-23-2023 Phosphate [Mass/Vol] 4.0 mg/dL Normal 2.4-4.9 [facility] Comment on above: Performed By: #### C BCA, CMP, , 2776-04, 1987-08 #### [facility] ([id number]) [address], [address] [place] [address] CBC AND AUTO DIFFon 10-22-19 Erythrocyte distribution width (RBC) [Ratio] 15.0 % Normal 11.5-15.0 [facility] Comment on above: Performed By: #### Shahla POOLE CMP, , 2776-04, 1987-08 #### [facility] ([id number]) [address], [facility] [address] [place] [address] Hematocrit (Bld) [Volume fraction] 32.1 % Low 35-47 [facility] Comment on above: Performed By: #### Shahla POOLE [facility], , 2776-04, 1987-08 #### [facility] ([id number]) [address], [facility] [address] [place] [address] Hemoglobin (Bld) [Mass/Vol] 11.0 g/dL Low 11.7-15.5 [facility] Comment on above: Performed By: #### C VIRGILIO [facility], , 2776-04, 1987-08 #### [facility] ([id number]) [address] [address] [place] [address] Lymphocytes (Bld) [#/Vol] 1.2 10*3/uL Normal 1.0-3.5 [facility] Comment on above: Performed By: #### Shahla POOLE CMP, , 2776-04, 1987-08 #### [facility] ([id number]) [address] [address] [place] [address] Lymphocytes/100 WBC (Bld) 14.0 % Normal [facility] Comment on above: Performed By: #### Shahla BCA, CMP, , 2776-04, 1987-08 #### [facility] ([id number]) [address], [address] [place] [address] MCH (RBC) [Entitic mass] 28.8 pg Normal 27-34 [facility] Comment on above: Performed By: #### C BCA, CMP, , 2776-04, 1987-08 #### [facility] ([id number]) [address], [address] [place] [address] MCHC (RBC) [Mass/Vol] 34.3 g/dL Normal 32-36 [facility] Comment on above: Performed By: #### C BCA, CMP, , 2776-04, 1987-08 #### [facility] ([id number]) [address], [address] [place] [address] MCV (RBC) [Entitic vol] 84 fL Normal 80-100 [facility] Comment on above: Performed By: #### Shahla BCA, CMP, , 2776-04, 1987-08 #### [facility] ([id number]) [address], [address] [place] [address] Metamyelocytes/100 WBC (Bld) 1.0 % Normal [facility] Comment on above: Performed By: #### C BCA, CMP, , 2776-04, 1987-08 #### [facility] ([id number]) [address], [address] [place] [address] Monocytes (Bld) [#/Vol] 0.6 10*3/uL Normal 0-0.9 [facility] Comment on above: Performed By: #### C BCA, CMP, , 2776-04, 1987-08 #### [facility] ([id number]) [address], [address] [place] [address] Monocytes/100 WBC (Bld) 7.0 % Normal [facility] Comment on above: Performed By: #### C BCA, CMP, , 2776-04, 1987-08 #### [facility] ([id number]) [address], [address] [place] [address] MYELOCYTE 3.0 % Normal [facility] Comment on above: Performed By: #### C BCA, CMP, , 2776-04, 1987-08 #### [facility] ([id number]) [address], [address] [place] [address] Neutrophils (Bld) [#/Vol] 6.7 10*3/uL High 1.5-6.6 [facility] Comment on above: Performed By: #### C BCA, CMP, , 2776-04, 1987-08 #### [facility] ([id number]) [address] [place] [address] Platelet mean volume (Bld) [Entitic vol] 9.4 fL Normal 7-12 [facility] Comment on above: Performed By: #### Shahla BCA, CMP, , 2776-04, 1987-08 #### [facility] ([id number]) [address], [address] [place] [address] Platelets (Bld) [#/Vol] 394 10*3/uL Normal 150-450 [facility] Comment on above: Performed By: #### Shahla BCA, CMP, , 2776-04, 1987-08 #### [facility] ([id number]) [address], [address] [place] [address] RBC COUNT 3.83 X10E12/L Normal 3.80-5.20 [facility] Comment on above: Performed By: #### C BCA, CMP, , 2776-04, 1987-08 #### [facility] ([id number]) [address], [address] [place] [address] RBC morphology finding Nom (Bld) NORMAL Normal [facility] Comment on above: Performed By: #### C BCA, CMP, , 2776-04, 1987-08 #### [facility] ([id number]) [address], [address] [place] [address] SEG NEUTROPHIL 75.0 % Normal [facility] Comment on above: Performed By: #### C BCA, CMP, , 2776-04, 1987-08 #### [facility] ([id number]) [address], [address] [place] [address] WBC (Bld) [#/Vol] 8.9 10*3/uL Normal 4.0-11.0 [facility] Comment on above: Performed By: #### C BCA, CMP, , 2776-04, 1987-08 #### [facility] ([id number]) [address], [address] [place] [address] COMPREHENSIVE METABOLIC PANE Phu 10-22-2023 Albumin [Mass/Vol] 3.4 g/dL Normal 3.2-5.3 [facility] Comment on above: Performed By: #### C BCA, CMP, , 2776-04, 1987-08 #### [facility] ([id number]) [address] [place] [address] ALP [Catalytic activity/Vol] 43 U/L Normal 39-130 [facility] Comment on above: Performed By: #### C BCA, CMP, , 2776-04, 1987-08 #### [facility] ([id number]) [address], [address] [place] [address] ALT [Catalytic activity/Vol] 9 U/L Normal 0-31 [facility] Comment on above: Performed By: #### C BCA, CMP, , 2776-04, 1987-08 #### [facility] ([id number]) [address], [address] [place] [address] Anion gap [Moles/Vol] 14 mmol/L Normal 5-15 [facility] Comment on above: Performed By: #### C BCA, CMP, , 2776-04, 1987-08 #### [facility] ([id number]) [address] [place] [address] AST [Catalytic activity/Vol] 12 U/L Normal 0-41 [facility] Comment on above: Performed By: #### C BCA, CMP, , 2776-04, 1987-08 #### [facility] ([id number]) [address] [place] [address] Bilirubin [Mass/Vol] 0.3 mg/dL Normal 0.3-1.2 [facility] Comment on above: Performed By: #### C BCA, CMP, , 2776-04, 1987-08 #### [facility] ([id number]) [address], [address] [place] [address] Calcium [Mass/Vol] 8.9 mg/dL Normal 8.5-10.5 [facility] Comment on above: Performed By: #### C BCA, CMP, , 2776-04, 1987-08 #### [facility] ([id number]) [address] [place] [address] Chloride [Moles/Vol] 99 mmol/L Normal 98-109 [facility] Comment on above: Performed By: #### C BCA, CMP, , 2776-04, 1987-08 #### [facility] ([id number]) [address], [address] [place] [address] CO2 [Moles/Vol] 25 mmol/L Normal 22-32 [facility] Comment on above: Performed By: #### C BCA, CMP, , 2776-04, 1987-08 #### [facility] ([id number]) [address] [place] [address] Creatinine [Mass/Vol] 3.16 mg/dL High 0.40-1.00 [facility] Comment on above: Result Comment: METH OD TRACEABLE TO IDMS STANDARD Performed By: #### C EDEL POOLE, , 2776-04, 1987-08 #### [facility] ([id number]) [address], [facility] [address] [place] [address] GFR/1.73 sq M.predicted among non-blacks MDRD (S/P/Bld) [Vol rate/Area] 16 mL/min/{1.73_m2} Low >59 [facility] Comment on above: Result Comment: Reported eGFR is based on the CKD-EPI 2020 equation that does not use a race coefficient. Performed By: #### C EDEL POOLE, , 2776-04, 1987-08 #### [facility] ([id number]) [address] [address] Glucose [Mass/Vol] 109 mg/dL High 65-99 [facility] Comment on above: Performed By: #### C EDEL POOLE, , 2776-04, 1987-08 #### [facility] ([id number]) [address] [address] Potassium [Moles/Vol] 4.0 mmol/L Normal 3.5-5.0 [facility] Comment on above: Performed By: #### C EDEL POOLE, , 2776-04, 1987-08 #### [facility] ([id number]) [address] [address] [place] [address] Protein [Mass/Vol] 5.7 g/dL Low 6.0-8.0 [facility] Comment on above: Performed By: #### C VIRGILIO CMP, , 2776-04, 1987-08 #### [facility] ([id number]) [address], [address] [place] [address] Sodium [Moles/Vol] 138 mmol/L Normal 134-146 [facility] Comment on above: Performed By: #### C VIRGILIO, CMP, , 2776-04, 1987-08 #### [facility] ([id number]) [address], [address] [place] [address] Urea nitrogen [Mass/Vol] 79 mg/dL High 5-23 [facility] Comment on above: Performed By: #### C VIRGILIO, CMP, , 2776-04, 1987-08 #### [facility] ([id number]) [address], [facility] [address] [place] [address] Calcium.ionized (Bld) [Mass/ Vol]on 10-22-2023 IONIZED CALCIUM 4.5 mg/dL Normal 4.5-5.3 [facility] Comment on above: Performed By: #### Shahla POOLE, CMP, , 2776-04, 1987-08 #### [facility] ([id number]) [address], [facility] [address] [place] [address] MAGNESIUMon 10-22-2023 Magnesium [Mass/Vol] 2.5 mg/dL Normal 1.8-2.6 [facility] Comment on above: Performed By: #### Shahla POOLE, CMP, , 2776-04, 1987-08 #### [facility] ([id number]) [address], [facility] [address] [place] [address] PHOSPHORUSon 10-22-2023 Phosphate [Mass/Vol] 4.7 mg/dL Normal 2.4-4.9 [facility] Comment on above: Performed By: #### Shahla POOLE, CMP, , 2776-04, 1987-08 #### [facility] ([id number]) [address], [facility] [address] [place] [address] Basement membrane IgG Qn (S) on 10-21-2023 Glomerular Base Memb IgG <0.2 Normal <1. 0 (Negative) [facility] Comment on above: Result Comment: NOTE Test Performed by: [facility] [address] [place] [address] Biogeographer: Ledy Son Ph.D.; CLIA# [id number] Performed By: #### C BCA, CMP, , 2776-04, 1987-08 #### [facility] ([id number]) [address] [place] [address] CBC AND AUTO DIFFon 10-21-19 24 ABSOLUTE BASOPHIL 0.0 X10E9/L Normal 0.0-0.2 [facility] Comment on above: Performed By: #### C BCA, CMP, , 2776-04, 1987-08 #### [facility] ([id number]) [address] [place] [address] ABSOLUTE NEUTROPHIL 8.8 X10E9/L High 1.5-6.6 [facility] Comment on above: Performed By: #### C BCA, CMP, , 2776-04, 1987-08 #### [facility] ([id number]) [address] [place] [address] Basophils/100 WBC (Bld) 0.1 % Normal [facility] Comment on above: Performed By: #### Shahla BCA, CMP, , 2776-04, 1987-08 #### [facility] ([id number]) [address] [place] [address] Eosinophils (Bld) [#/Vol] 0.0 10*3/uL Normal 0.0-0.4 [facility] Comment on above: Performed By: #### C BCA, CMP, , 2776-04, 1987-08 #### [facility] ([id number]) [address], [address] [place] [address] Eosinophils/100 WBC (Bld) 0.0 % Normal [facility] Comment on above: Performed By: #### C VIRGILIO CMP, , 2776-04, 1987-08 #### [facility] ([id number]) [address] [place] [address] Erythrocyte distribution width (RBC) [Ratio] 15.1 % High 11.5-15.0 [facility] Comment on above: Performed By: #### C VIRGILIO, CMP, , 2776-04, 1987-08 #### [facility] ([id number]) [address], [facility] [address] [place] [address] Hematocrit (Bld) [Volume fraction] 30.9 % Low 35-47 [facility] Comment on above: Performed By: #### Shahla POOLE CMP, , 2776-04, 1987-08 #### [facility] ([id number]) [address], [address] [place] [address] Hemoglobin (Bld) [Mass/Vol] 10.7 g/dL Low 11.7-15.5 [facility] Comment on above: Performed By: #### Shahla POOLE, CMP, , 2776-04, 1987-08 #### [facility] ([id number]) [address] [place] [address] Lymphocytes (Bld) [#/Vol] 1.1 10*3/uL Normal 1.0-3.5 [facility] Comment on above: Performed By: #### C BCA, CMP, , 2776-04, 1987-08 #### [facility] ([id number]) [address], [address] [place] [address] Lymphocytes/100 WBC (Bld) 10.9 % Normal [facility] Comment on above: Performed By: #### Shahla BCA, CMP, , 2776-04, 1987-08 #### [facility] ([id number]) [address], [address] [place] [address] MCH (RBC) [Entitic mass] 29.1 pg Normal 27-34 [facility] Comment on above: Performed By: #### C BCA, CMP, , 2776-04, 1987-08 #### [facility] ([id number]) [address], [address] [place] [address] MCHC (RBC) [Mass/Vol] 34.7 g/dL Normal 32-36 [facility] Comment on above: Performed By: #### C VIRGILIO, CMP, , 2776-04, 1987-08 #### [facility] ([id number]) [address] [place] [address] MCV (RBC) [Entitic vol] 84 fL Normal 80-100 [facility] Comment on above: Performed By: #### C BCA, CMP, , 2776-04, 1987-08 #### [facility] ([id number]) [address] [place] [address] Monocytes (Bld) [#/Vol] 0.2 10*3/uL Normal 0-0.9 [facility] Comment on above: Performed By: #### C VIRGILIO, CMP, , 2776-04, 1987-08 #### [facility] ([id number]) [address] [place] [address] Monocytes/100 WBC (Bld) 2.2 % Normal [facility] Comment on above: Performed By: #### C BCA, CMP, , 2776-04, 1987-08 #### [facility] ([id number]) [address] [place] [address] Neutrophils/100 WBC (Bld) 86.8 % Normal [facility] Comment on above: Performed By: #### C BCA, CMP, , 2776-04, 1987-08 #### [facility] ([id number]) [address] [place] [address] Platelet mean volume (Bld) [Entitic vol] 9.5 fL Normal 7-12 [facility] Comment on above: Performed By: #### C BCA, CMP, , 2776-04, 1987-08 #### [facility] ([id number]) [address] [place] [address] Platelets (Bld) [#/Vol] 297 10*3/uL Normal 150-450 [facility] Comment on above: Performed By: #### C BCA, CMP, , 2776-04, 1987-08 #### [facility] ([id number]) [address] [place] [address] RBC COUNT 3.69 X10E12/L Low 3.80-5.20 [facility] Comment on above: Performed By: #### C BCA, CMP, , 2776-04, 1987-08 #### [facility] ([id number]) [address] [place] [address] WBC (Bld) [#/Vol] 10.2 10*3/uL Normal 4.0-11.0 [facility] Comment on above: Performed By: #### C BCA, CMP, , 2776-04, 1987-08 #### [facility] ([id number]) [address] [place] [address] COMPREHENSIVE METABOLIC PANE Phu 10-21-2023 Albumin [Mass/Vol] 3.6 g/dL Normal 3.2-5.3 [facility] Comment on above: Performed By: #### C BCA, CMP, , 2776-04, 1987-08 #### [facility] ([id number]) [address] [place] [address] ALP [Catalytic activity/Vol] 46 U/L Normal 39-130 [facility] Comment on above: Performed By: #### C BCA, CMP, , 2776-04, 1987-08 #### [facility] ([id number]) [address], [address] [place] [address] ALT [Catalytic activity/Vol] 15 U/L Normal 0-31 [facility] Comment on above: Performed By: #### C BCA, CMP, , 2776-04, 1987-08 #### [facility] ([id number]) [address], [address] [place] [address] Anion gap [Moles/Vol] 12 mmol/L Normal 5-15 [facility] Comment on above: Performed By: #### C BCA, CMP, , 2776-04, 1987-08 #### [facility] ([id number]) [address], [address] [place] [address] AST [Catalytic activity/Vol] 18 U/L Normal 0-41 [facility] Comment on above: Performed By: #### C BCA, CMP, , 2776-04, 1987-08 #### [facility] ([id number]) [address], [address] [place] [address] Bilirubin [Mass/Vol] 0.3 mg/dL Normal 0.3-1.2 [facility] Comment on above: Performed By: #### C BCA, CMP, , 2776-04, 1987-08 #### [facility] ([id number]) [address], [address] [place] [address] Calcium [Mass/Vol] 8.8 mg/dL Normal 8.5-10.5 [facility] Comment on above: Performed By: #### C BCA, CMP, , 2776-04, 1987-08 #### [facility] ([id number]) [address], [address] [place] [address] Chloride [Moles/Vol] 96 mmol/L Low 98-109 [facility] Comment on above: Performed By: #### C VIRGILIO CMP, , 2776-04, 1987-08 #### [facility] ([id number]) [address], [address] [place] [address] CO2 [Moles/Vol] 28 mmol/L Normal 22-32 [facility] Comment on above: Performed By: #### C VIRGILIO CMP, , 2776-04, 1987-08 #### [facility] ([id number]) [address], [address] [place] [address] Creatinine [Mass/Vol] 3.71 mg/dL High 0.40-1.00 [facility] Comment on above: Result Comment: METH OD TRACEABLE TO IDMS STANDARD Performed By: #### C EDEL POOLE, , 2776-04, 1987-08 #### [facility] ([id number]) [address], [address] [place] [address] GFR/1.73 sq M.predicted among non-blacks MDRD (S/P/Bld) [Vol rate/Area] 13 mL/min/{1.73_m2} Low >59 [facility] Comment on above: Result Comment: Reported eGFR is based on the CKD-EPI 2020 equation that does not use a race coefficient. Performed By: #### C BCA, CMP, , 2776-04, 1987-08 #### [facility] ([id number]) [address], [address] [place] [address] Glucose [Mass/Vol] 131 mg/dL High 65-99 [facility] Comment on above: Performed By: #### C BCA, CMP, , 2776-04, 1987-08 #### [facility] ([id number]) [address], [address] [place] [address] Potassium [Moles/Vol] 4.6 mmol/L Normal 3.5-5.0 [facility] Comment on above: Performed By: #### C VIRGILIO, CMP, , 2776-04, 1987-08 #### [facility] ([id number]) [address], [address] [place] [address] Protein [Mass/Vol] 5.9 g/dL Low 6.0-8.0 [facility] Comment on above: Performed By: #### C VIRGILIO, CMP, , 2776-04, 1987-08 #### [facility] ([id number]) [address], [address] [place] [address] Sodium [Moles/Vol] 136 mmol/L Normal 134-146 [facility] Comment on above: Performed By: #### C VIRGILIO, CMP, , 2776-04, 1987-08 #### [facility] ([id number]) [address], [address] [place] [address] Urea nitrogen [Mass/Vol] 80 mg/dL High 5-23 [facility] Comment on above: Performed By: #### C BCA, CMP, , 2776-04, 1987-08 #### [facility] ([id number]) [address], [address] [place] [address] Calcium.ionized (Bld) [Mass/ Vol]on 10-21-2023 IONIZED CALCIUM 4.5 mg/dL Normal 4.5-5.3 [facility] Comment on above: Performed By: #### C BCA, CMP, , 2776-04, 1987-08 #### [facility] ([id number]) [address], [address] [place] [address] MAGNESIUMon 10-21-2023 Magnesium [Mass/Vol] 2.4 mg/dL Normal 1.8-2.6 [facility] Comment on above: Performed By: #### C BCA, CMP, , 2776-04, 1987-08 #### [facility] ([id number]) [address], [address] [place] [address] PHOSPHORUSon 10-21-2023 Phosphate [Mass/Vol] 5.5 mg/dL High 2.4-4.9 [facility] Comment on above: Performed By: #### C BCA, CMP, , 2776-04, 1987-08 #### [facility] ([id number]) [address], [address] [place] [address] CBC AND AUTO DIFFon 10-20-19 ABSOLUTE BASOPHIL 0.0 X10E9/L Normal 0.0-0.2 [facility] Comment on above: Performed By: #### C BCA, CMP, , 2776-04, 1987-08 #### [facility] ([id number]) [address], [address] [place] [address] ABSOLUTE NEUTROPHIL 14.6 X10E9/L High 1.5-6.6 [facility] Comment on above: Performed By: #### C BCA, CMP, , 2776-04, 1987-08 #### [facility] ([id number]) [address], [address] [place] [address] Basophils/100 WBC (Bld) 0.1 % Normal [facility] Comment on above: Performed By: #### C BCA, CMP, , 2776-04, 1987-08 #### [facility] ([id number]) [address], [address] [place] [address] Eosinophils (Bld) [#/Vol] 0.0 10*3/uL Normal 0.0-0.4 [facility] Comment on above: Performed By: #### C VIRGILIO, CMP, , 2776-04, 1987-08 #### [facility] ([id number]) [address] [address] [place] [address] Eosinophils/100 WBC (Bld) 0.0 % Normal [facility] Comment on above: Performed By: #### Shahla BCA, CMP, , 2776-04, 1987-08 #### [facility] ([id number]) [address], [address] [place] [address] Erythrocyte distribution width (RBC) [Ratio] 15.3 % High 11.5-15.0 [facility] Comment on above: Performed By: #### Shahla POOLE, CMP, , 2776-04, 1987-08 #### [facility] ([id number]) [address], [address] [place] [address] Hematocrit (Bld) [Volume fraction] 32.0 % Low 35-47 [facility] Comment on above: Performed By: #### Shahla POOLE, CMP, , 2776-04, 1987-08 #### [facility] ([id number]) [address] [address] [place] [address] Hemoglobin (Bld) [Mass/Vol] 10.5 g/dL Low 11.7-15.5 [facility] Comment on above: Performed By: #### Shahla POOLE, CMP, , 2776-04, 1987-08 #### [facility] ([id number]) [address] [address] [place] [address] Lymphocytes (Bld) [#/Vol] 1.7 10*3/uL Normal 1.0-3.5 [facility] Comment on above: Performed By: #### Shahla BCA, CMP, , 2776-04, 1987-08 #### [facility] ([id number]) [address], [address] [place] [address] Lymphocytes/100 WBC (Bld) 10.3 % Normal [facility] Comment on above: Performed By: #### C VIRGILIO CMP, , 2776-04, 1987-08 #### [facility] ([id number]) [address], [facility] [address] [place] [address] MCH (RBC) [Entitic mass] 27.7 pg Normal 27-34 [facility] Comment on above: Performed By: #### Shahla BCA, CMP, , 2776-04, 1987-08 #### [facility] ([id number]) [address], [facility] [address] [place] [address] MCHC (RBC) [Mass/Vol] 32.9 g/dL Normal 32-36 [facility] Comment on above: Performed By: #### Shahla POOLE CMP, , 2776-04, 1987-08 #### [facility] ([id number]) [address], [facility] [address] [place] [address] MCV (RBC) [Entitic vol] 84 fL Normal 80-100 [facility] Comment on above: Performed By: #### Sahhla POOLE, CMP, , 2776-04, 1987-08 #### [facility] ([id number]) [address], [facility] [address] [place] [address] Monocytes (Bld) [#/Vol] 0.4 10*3/uL Normal 0-0.9 [facility] Comment on above: Performed By: #### Shahla BCA, CMP, , 2776-04, 1987-08 #### [facility] ([id number]) [address], [facility] [address] [place] [address] Monocytes/100 WBC (Bld) 2.2 % Normal [facility] Comment on above: Performed By: #### Shahla BCA, CMP, , 2776-04, 1987-08 #### [facility] ([id number]) [address], [address] [place] [address] Neutrophils/100 WBC (Bld) 87.4 % Normal [facility] Comment on above: Performed By: #### C BCA, CMP, , 2776-04, 1987-08 #### [facility] ([id number]) [address], [address] [place] [address] Platelet mean volume (Bld) [Entitic vol] 9.3 fL Normal 7-12 [facility] Comment on above: Performed By: #### C BCA, CMP, , 2776-04, 1987-08 #### [facility] ([id number]) [address], [address] [place] [address] Platelets (Bld) [#/Vol] 350 10*3/uL Normal 150-450 [facility] Comment on above: Performed By: #### C BCA, CMP, , 2776-04, 1987-08 #### [facility] ([id number]) [address], [address] [place] [address] RBC COUNT 3.80 X10E12/L Normal 3.80-5.20 [facility] Comment on above: Performed By: #### C BCA, CMP, , 2776-04, 1987-08 #### [facility] ([id number]) [address], [address] [place] [address] WBC (Bld) [#/Vol] 16.7 10*3/uL High 4.0-11.0 [facility] Comment on above: Performed By: #### C BCA, CMP, , 2776-04, 1987-08 #### [facility] ([id number]) [address], [address] [place] [address] COMPREHENSIVE METABOLIC PANE Phu 10-20-2023 Albumin [Mass/Vol] 3.6 g/dL Normal 3.2-5.3 [facility] Comment on above: Performed By: #### C BCA, CMP, , 2776-04, 1987-08 #### [facility] ([id number]) [address], [address] [place] [address] ALP [Catalytic activity/Vol] 53 U/L Normal 39-130 [facility] Comment on above: Performed By: #### C BCA, CMP, , 2776-04, 1987-08 #### [facility] ([id number]) [address], [address] [place] [address] ALT [Catalytic activity/Vol] 14 U/L Normal 0-31 [facility] Comment on above: Performed By: #### C BCA, CMP, , 2776-04, 1987-08 #### [facility] ([id number]) [address], [address] [place] [address] Anion gap [Moles/Vol] 13 mmol/L Normal 5-15 [facility] Comment on above: Performed By: #### C BCA, CMP, , 2776-04, 1987-08 #### [facility] ([id number]) [address], [address] [place] [address] AST [Catalytic activity/Vol] 27 U/L Normal 0-41 [facility] Comment on above: Performed By: #### C BCA, CMP, , 2776-04, 1987-08 #### [facility] ([id number]) [address], [address] [place] [address] Bilirubin [Mass/Vol] 0.3 mg/dL Normal 0.3-1.2 [facility] Comment on above: Performed By: #### C BCA, CMP, , 2776-04, 1987-08 #### [facility] ([id number]) [address], [address] [place] [address] Calcium [Mass/Vol] 9.1 mg/dL Normal 8.5-10.5 [facility] Comment on above: Performed By: #### C BCA, CMP, , 2776-04, 1987-08 #### [facility] ([id number]) [address], [address] [place] [address] Chloride [Moles/Vol] 94 mmol/L Low 98-109 [facility] Comment on above: Performed By: #### C BCA, CMP, , 2776-04, 1987-08 #### [facility] ([id number]) [address], [address] [place] [address] CO2 [Moles/Vol] 28 mmol/L Normal 22-32 [facility] Comment on above: Performed By: #### C BCA, CMP, , 2776-04, 1987-08 #### [facility] ([id number]) [address], [address] [place] [address] Creatinine [Mass/Vol] 3.58 mg/dL High 0.40-1.00 [facility] Comment on above: Result Comment: METH OD TRACEABLE TO IDMS STANDARD Performed By: #### C BCA, CMP, , 2776-04, 1987-08 #### [facility] ([id number]) [address], [address] [place] [address] GFR/1.73 sq M.predicted among non-blacks MDRD (S/P/Bld) [Vol rate/Area] 14 mL/min/{1.73_m2} Low >59 [facility] Comment on above: Result Comment: Reported eGFR is based on the CKD-EPI 2020 equation that does not use a race coefficient. Performed By: #### C BCA, CMP, , 2776-04, 1987-08 #### [facility] ([id number]) [address], [address] [place] [address] Glucose [Mass/Vol] 133 mg/dL High 65-99 [facility] Comment on above: Performed By: #### C BCA, CMP, , 2776-04, 1987-08 #### [facility] ([id number]) [address], [address] [place] [address] Potassium [Moles/Vol] 4.8 mmol/L Normal 3.5-5.0 [facility] Comment on above: Performed By: #### C BCA, CMP, , 2776-04, 1987-08 #### [facility] ([id number]) [address], [address] [place] [address] Protein [Mass/Vol] 6.1 g/dL Normal 6.0-8.0 [facility] Comment on above: Performed By: #### C BCA, CMP, , 2776-04, 1987-08 #### [facility] ([id number]) [address], [address] [place] [address] Sodium [Moles/Vol] 135 mmol/L Normal 134-146 [facility] Comment on above: Performed By: #### C BCA, CMP, , 2776-04, 1987-08 #### [facility] ([id number]) [address], [address] [place] [address] Urea nitrogen [Mass/Vol] 70 mg/dL High 5-23 [facility] Comment on above: Performed By: #### C BCA, CMP, , 2776-04, 1987-08 #### [facility] ([id number]) [address], [address] [place] [address] Calcium.ionized (Bld) [Mass/ Vol]on 10-20-2023 IONIZED CALCIUM 4.6 mg/dL Normal 4.5-5.3 [facility] Comment on above: Performed By: #### C BCA, CMP, 99237-8, 2777-1, 1987- #### [facility] ([id number]) [address], [address] [place] [address] IR BIOPSY RENAL PERC RTon IR BIOPSY [...] Mann MD on 10/20/2023 3:13 PM Normal [facility] MAGNESIUMon 10-20-2023 Magnesium [Mass/Vol] 2.3 mg/dL Normal 1.8-2.6 [facility] Comment on above: Performed By: #### C BCA, CMP, 47836-5, 2776-04, 1987-08 #### [facility] ([id number]) [address] [place] [address] [address] [place] [address] PHOSPHORUSon 10-20-2023 Phosphate [Mass/Vol] 6.3 mg/dL High 2.4-4.9 [facility] Comment on above: Performed By: #### C BCA, CMP, , 2776-04, 1987-08 #### [facility] ([id number]) [address] [place] [address], [address] [place] [address] Surgical Pathologyon 024 Surgical Pathology Normal [facility] Comment on above: Result Comment: [facility] [address] [place] [address] Surgical Pathology Consultation ADDENDUM [place] Patient Name:DANIELLE MONTANA:1965 (Age: 58)Gender:FTaken:4Reported:10/24/2023hysician(s):Wanda Mendez ([phone])Copy To:MD Natasha ROSALES M.D. Rec. #:[id number]: #[id number] Final Pathologic Diagnosis Right kidney, needle biopsy: Specimen sent to [facility]. Report Electronically Signed Out [facility]/10/24/2023Trace Meza MD Addendum (PHS) Date Reported: 10/24/2023 Results of routine histology and immunofluorescence dated 10/24/2023 are received from Deidra Bustos M.D., [facility], [address] [place] [address] and are as follows: Final Diagnosis: Kidney, [...] addendum. Please see the complete report from [facility] in the patient's EMR. Electronically Signed Out Trace Meza MD Addendum (PHS) Date Reported: 11/02/2023 Results of Addendum (Electron Microscopy) dated are received from Deidra Bustos M.D., [facility], [address] [place] [address] [place], [place] and are as follows: Paraffin-based immunofluorescence [...] case. Please see the complete report from [facility] in the patient's EMR. Electronically Signed Out Trace Meza MD Addendum ([facility]) Date Reported: 11/08/2023 Results of Mass Spectrometry dated 11/07/2023 are received from Adan Yates M.D., Ph.D., [facility], [address] [place] [address] [place], [place] and are as follows: MASS SPECTROMETRY Liquid chromatography tandem mass spectrometry (LC MS/MS) was performed on peptides extracted from glomeruli that were microdissected from the paraffin-embedded specimen. LC MS/MS did not detect a peptide profile consistent with any of the following antigens: PLA2R, THSD7A, EXT1/EXT2, NELL1, SEMA3B, CNTN1, NCAM1, PCSK6, PCDH7, FAT1 or NDNF. Please see the complete report from [facility] (more content not included)... CBC AND AUTO DIFFon 10-19-19 24 Band form neutrophils/100 WBC (Bld) 1.0 % Normal [facility] Comment on above: Performed By: #### C EDEL POOLE, , 2776-04, 1987-08 #### [facility] ([id number]) [address] [address] Erythrocyte distribution width (RBC) [Ratio] 14.9 % Normal 11.5-15.0 [facility] Comment on above: Performed By: #### Shahla POOLE CMP, , 2776-04, 1987-08 #### [facility] ([id number]) [address], [facility] [address] [place] [address] Hematocrit (Bld) [Volume fraction] 34.4 % Low 35-47 [facility] Comment on above: Performed By: #### C VIRGILIO CMP, , 2776-04, 1987-08 #### [facility] ([id number]) [address], [address] [address] Hemoglobin (Bld) [Mass/Vol] 11.4 g/dL Low 11.7-15.5 [facility] Comment on above: Performed By: #### C VIRGILIO CMP, , 2776-04, 1987-08 #### [facility] ([id number]) [address] [address] Lymphocytes (Bld) [#/Vol] 1.9 10*3/uL Normal 1.0-3.5 [facility] Comment on above: Performed By: #### C BCA, CMP, , 2776-04, 1987-08 #### [facility] ([id number]) [address] [place] [address] Lymphocytes/100 WBC (Bld) 15.0 % Normal [facility] Comment on above: Performed By: #### Shahla BCA, CMP, , 2776-04, 1987-08 #### [facility] ([id number]) [address] [place] [address] MCH (RBC) [Entitic mass] 27.8 pg Normal 27-34 [facility] Comment on above: Performed By: #### C BCA, CMP, , 2776-04, 1987-08 #### [facility] ([id number]) [address] [place] [address] MCHC (RBC) [Mass/Vol] 33.2 g/dL Normal 32-36 [facility] Comment on above: Performed By: #### Shahla POOLE, CMP, , 2776-04, 1987-08 #### [facility] ([id number]) [address], [facility] [address] [place] [address] MCV (RBC) [Entitic vol] 84 fL Normal 80-100 [facility] Comment on above: Performed By: #### Shahla BCA, CMP, , 2776-04, 1987-08 #### [facility] ([id number]) [address], [address] [place] [address] Metamyelocytes/100 WBC (Bld) 1.0 % Normal [facility] Comment on above: Performed By: #### Shahla BCA, CMP, , 2776-04, 1987-08 #### [facility] ([id number]) [address], [address] [place] [address] Monocytes (Bld) [#/Vol] 0.1 10*3/uL Normal 0-0.9 [facility] Comment on above: Performed By: #### C BCA, CMP, , 2776-04, 1987-08 #### [facility] ([id number]) [address] [place] [address] Monocytes/100 WBC (Bld) 1.0 % Normal [facility] Comment on above: Performed By: #### Shahla BCA, CMP, , 2776-04, 1987-08 #### [facility] ([id number]) [address], [facility] [address] [place] [address] Neutrophils (Bld) [#/Vol] 10.4 10*3/uL High 1.5-6.6 [facility] Comment on above: Performed By: #### Shahla BCA, CMP, , 2776-04, 1987-08 #### [facility] ([id number]) [address], [address] [place] [address] Platelet mean volume (Bld) [Entitic vol] 9.3 fL Normal 7-12 [facility] Comment on above: Performed By: #### Shahla BCA, CMP, , 2776-04, 1987-08 #### [facility] ([id number]) [address] [place] [address] Platelets (Bld) [#/Vol] 324 10*3/uL Normal 150-450 [facility] Comment on above: Performed By: #### Shahla BCA, CMP, , 2776-04, 1987-08 #### [facility] ([id number]) [address], [facility] [address] [place] [address] POLYCHROMASIA 1+ Abnormal NONE [facility] Comment on above: Performed By: #### Shahla BCA, CMP, , 2776-04, 1987-08 #### [facility] ([id number]) [address], [address] [place] [address] RBC COUNT 4.09 X10E12/L Normal 3.80-5.20 [facility] Comment on above: Performed By: #### C BCA, CMP, , 2776-04, 1987-08 #### [facility] ([id number]) [address] [place] [address] SEG NEUTROPHIL 82.0 % Normal [facility] Comment on above: Performed By: #### C BCA, CMP, , 2776-04, 1987-08 #### [facility] ([id number]) [address] [place] [address] WBC (Bld) [#/Vol] 12.5 10*3/uL High 4.0-11.0 [facility] Comment on above: Performed By: #### C BCA, CMP, , 2776-04, 1987-08 #### [facility] ([id number]) [address] [place] [address] COMPREHENSIVE METABOLIC PANE Phu 10-19-2023 Albumin [Mass/Vol] 3.7 g/dL Normal 3.2-5.3 [facility] Comment on above: Performed By: #### C BCA, CMP, , 2776-04, 1987-08 #### [facility] ([id number]) [address], [address] [place] [address] ALP [Catalytic activity/Vol] 58 U/L Normal 39-130 [facility] Comment on above: Performed By: #### C BCA, CMP, , 2776-04, 1987-08 #### [facility] ([id number]) [address], [address] [place] [address] ALT [Catalytic activity/Vol] 10 U/L Normal 0-31 [facility] Comment on above: Performed By: #### C BCA, CMP, , 2776-04, 1987-08 #### [facility] ([id number]) [address], [address] [place] [address] Anion gap [Moles/Vol] 13 mmol/L Normal 5-15 [facility] Comment on above: Performed By: #### C BCA, CMP, , 2776-04, 1987-08 #### [facility] ([id number]) [address], [address] [place] [address] AST [Catalytic activity/Vol] 17 U/L Normal 0-41 [facility] Comment on above: Performed By: #### C BCA, CMP, , 2776-04, 1987-08 #### [facility] ([id number]) [address] [place] [address] Bilirubin [Mass/Vol] 0.3 mg/dL Normal 0.3-1.2 [facility] Comment on above: Performed By: #### C BCA, CMP, , 2776-04, 1987-08 #### [facility] ([id number]) [address] [place] [address] Calcium [Mass/Vol] 9.9 mg/dL Normal 8.5-10.5 [facility] Comment on above: Performed By: #### C BCA, CMP, , 2776-04, 1987-08 #### [facility] ([id number]) [address], [address] [place] [address] Chloride [Moles/Vol] 95 mmol/L Low 98-109 [facility] Comment on above: Performed By: #### C BCA, CMP, , 2776-04, 1987-08 #### [facility] ([id number]) [address], [address] [place] [address] CO2 [Moles/Vol] 28 mmol/L Normal 22-32 [facility] Comment on above: Performed By: #### C VIRGILIO, CMP, , 2776-04, 1987-08 #### [facility] ([id number]) [address] [place] [address] Creatinine [Mass/Vol] 3.62 mg/dL High 0.40-1.00 [facility] Comment on above: Result Comment: METH OD TRACEABLE TO IDMS STANDARD Performed By: #### C VIRGILIO, CMP, , 2776-04, 1987-08 #### [facility] ([id number]) [address] [place] [address] GFR/1.73 sq M.predicted among non-blacks MDRD (S/P/Bld) [Vol rate/Area] 14 mL/min/{1.73_m2} Low >59 [facility] Comment on above: Result Comment: Reported eGFR is based on the CKD-EPI 2020 equation that does not use a race coefficient. Performed By: #### C EDEL POOLE, , 2776-04, 1987-08 #### [facility] ([id number]) [address] [place] [address] Glucose [Mass/Vol] 146 mg/dL High 65-99 [facility] Comment on above: Performed By: #### C VIRGILIO CMP, , 2776-04, 1987-08 #### [facility] ([id number]) [address] [place] [address] Potassium [Moles/Vol] 5.2 mmol/L High 3.5-5.0 [facility] Comment on above: Performed By: #### C VIRGILIO, CMP, , 2776-04, 1987-08 #### [facility] ([id number]) [address] [place] [address] Protein [Mass/Vol] 6.4 g/dL Normal 6.0-8.0 [facility] Comment on above: Performed By: #### C BCA, CMP, , 2776-04, 1987-08 #### [facility] ([id number]) [address], [address] [place] [address] Sodium [Moles/Vol] 136 mmol/L Normal 134-146 [facility] Comment on above: Performed By: #### C BCA, CMP, , 2776-04, 1987-08 #### [facility] ([id number]) [address], [address] [place] [address] Urea nitrogen [Mass/Vol] 53 mg/dL High 5-23 [facility] Comment on above: Performed By: #### C BCA, CMP, , 2776-04, 1987-08 #### [facility] ([id number]) [address], [address] [place] [address] CRP [Mass/Vol]on 10-19-2023 C REACTIVE PROTEIN 0.9 mg/dL High 0.000-0.7 4 4 [facility] Comment on above: Performed By: #### C BCA, CMP, , 2776-04, 1987-08 #### [facility] ([id number]) [address], [address] [place] [address] Calcium.ionized (Bld) [Mass/ Vol]on 10-19-2023 IONIZED CALCIUM 4.6 mg/dL Normal 4.5-5.3 [facility] Comment on above: Performed By: #### 3 8230-9 #### [facility] ([id number]) [address], [address] [place] [address] IMMUNOGLOBULINSon 10-19-2023 IgA [Mass/Vol] 109 mg/dL Normal 68-378 [facility] Comment on above: Performed By: #### P INR, 67261-8, IMGB #### [facility] ([id number]) [address], [address] [place] [address] IgG [Mass/Vol] 460 mg/dL Low 635-1741 [facility] Comment on above: Performed By: #### P INR, 03953-3, IMGB #### [facility] ([id number]) [address], [address] [place] [address] IgM [Mass/Vol] 98 mg/dL Normal 45-281 [facility] Comment on above: Performed By: #### P INR, 02475-4, IMGB #### [facility] ([id number]) [address], [address] [place] [address] MAGNESIUMon 10-19-2023 Magnesium [Mass/Vol] 2.0 mg/dL Normal 1.8-2.6 [facility] Comment on above: Performed By: #### C BCA, CMP, , 2776-04, 1987-08 #### [facility] ([id number]) [address], [address] [place] [address] PHOSPHORUSon 10-19-2023 Phosphate [Mass/Vol] 4.8 mg/dL Normal 2.4-4.9 [facility] Comment on above: Performed By: #### C BCA, CMP, , 2776-04, 1987-08 #### [facility] ([id number]) [address], [address] [place] [address] PLATELET FUNCTIONon 10-19-19 24 COLLAGEN/ADP 72 sec Normal 0-114 [facility] Comment on above: Performed By: #### P FA, PINR, 93171-5 #### [facility] ([id number]) [address], [address] [place] [address] COLLAGEN/EPINEPHRINE 81 sec Normal 0-179 [facility] Comment on above: Performed By: #### P FA, PINR, 88980-9 #### [facility] ([id number]) [address], [address] [place] [address] PFA INTERP Platelet function is normal. If patient Normal [facility] Comment on above: Result Comment: hist ory/physical examination gives strong indication of a bleeding disorder, consider testing for other etiologies. Performed By: #### P FA, PINR, 44693-9 #### [facility] ([id number]) [address], [address] [place] [address] PROTIME AND INRon 10-19-2023 INR Coag (PPP) [Relative time] 0.9 {INR} Normal 0.8-1.1 [facility] Comment on above: Performed By: #### C VIRGILIO CMP, , 2776-04, 1987-08 #### [facility] ([id number]) [address] [address] [place] [address] PT Coag (PPP) [Time] 10.4 s Normal 9.8-13.2 [facility] Comment on above: Performed By: #### C BCA, CMP, , 2776-04, 1987-08 #### [facility] ([id number]) [address] [address] [place] [address] INR Coag (PPP) [Relative time] 0.9 {INR} Normal 0.8-1.1 [facility] Comment on above: Performed By: #### P INR, 05161-4, IMGB #### [facility] ([id number]) [address] [address] [place] [address] PT Coag (PPP) [Time] 10.4 s Normal 9.8-13.2 [facility] Comment on above: Performed By: #### P INR, 95393-0, IMGB #### [facility] ([id number]) [address], [address] [place] [address] aPTT Coag (PPP) [Time]on aPTT Coag (Bld) [Time] 40 s High 26-37 [facility] Comment on above: Performed By: #### C BCA, CMP, , 2776-04, 1987-08 #### [facility] ([id number]) [address], [address] [place] [address] aPTT Coag (Bld) [Time] 34 s Normal 26-37 [facility] Comment on above: Performed By: #### P INR, 77051-4, IMGB #### [facility] ([id number]) [address], [address] [place] [address] Basement membrane IgG Qn (S) on 10-18-2023 Glomerular Base Memb IgG <0.2 Normal <1. 0 (Negative) [facility] Comment on above: Result Comment: NOTE Test Performed by: [place] [address] Biogeographer: Ledy Son Ph.D.; CLIA# [id number] Performed By: #### 8 9579-7 #### [facility] ([id number]) [address] [place] [address] CBC AND AUTO DIFFon 10-18-19 24 ABSOLUTE BASOPHIL 0.1 X10E9/L Normal 0.0-0.2 [facility] Comment on above: Performed By: #### C VIRGILIO, CMP, , 2776-04 ####[facility] ([id number])[address] [place] [address] ABSOLUTE NEUTROPHIL 4.5 X10E9/L Normal 1.5-6.6 [facility] Comment on above: Performed By: #### C BCA, CMP, , 2776-04 ####[facility] ([id number])[address] [place] [address]442 Basophils/100 WBC (Bld) 1.0 % Normal P [facility] Comment on above: Performed By: #### C EDEL POOLE, , 2776-04 ####[facility] ([id number])[address] [place] [address]102 Eosinophils (Bld) [#/Vol] 0.4 10*3/uL Normal 0.0-0.4 [facility] Comment on above: Performed By: #### Shahla POOLE CMP, , 2776-04 ####[facility] ([id number])[address] [place] [address] 22860 Eosinophils/100 WBC (Bld) 5.1 % Normal [facility] Comment on above: Performed By: #### Shahla POOLE CMP, , 2776-04 ####[facility] ([id number])[address] [place] [address]66 Erythrocyte distribution width (RBC) [Ratio] 15.0 % Normal 11.5-15.0 [facility] Comment on above: Performed By: #### Shahla POOLE CMP, , 2776-04 ####[facility] ([id number])[address] [place] [address] 34205 Hematocrit (Bld) [Volume fraction] 31.7 % Low 35-47 [facility] Comment on above: Performed By: #### Shahla POOLE CMP, , 2776-04 ####[facility] ([id number])[address] [place] [address] 21075 Hemoglobin (Bld) [Mass/Vol] 10.5 g/dL Low 11.7-15.5 [facility] Comment on above: Performed By: #### Shahla POOLE CMP, , 2776-04 ####[facility] ([id number])[address] [place] [address] 69486 Lymphocytes (Bld) [#/Vol] 2.1 10*3/uL Normal 1.0-3.5 [facility] Comment on above: Performed By: #### Shahla POOLE CMP, , 2776-04 ####[facility] ([id number])[address] [place] [address] 37901 Lymphocytes/100 WBC (Bld) 27.3 % Normal [facility] Comment on above: Performed By: #### Shahla POOLE CMP, , 2776-04 ####[facility] ([id number])[address] [place] [address] 85889 MCH (RBC) [Entitic mass] 27.7 pg Normal 27-34 [facility] Comment on above: Performed By: #### Shahla POOLE CMP, , 2776-04 ####[facility] ([id number])[address] [place] [address] 75503 MCHC (RBC) [Mass/Vol] 33.1 g/dL Normal 32-36 [facility] Comment on above: Performed By: #### Shahla POOLE CMP, , 2776-04 ####[facility] ([id number])[address] [place] [address] 07013 MCV (RBC) [Entitic vol] 84 fL Normal 80-100 [facility] Comment on above: Performed By: #### Shahla POOLE CMP, , 2776-04 ####[facility] ([id number])[address] [place] [address] 53303 Monocytes (Bld) [#/Vol] 0.7 10*3/uL Normal 0-0.9 [facility] Comment on above: Performed By: #### Shahla POOLE CMP, , 2776-04 ####[facility] ([id number])[address] [place] [address] 72597 Monocytes/100 WBC (Bld) 9.1 % Normal [facility] Comment on above: Performed By: #### Shahla POOLE CMP, , 2776-04 ####[facility] ([id number])[address] [place] [address] 47223 Neutrophils/100 WBC (Bld) 57.5 % Normal [facility] Comment on above: Performed By: #### Shahla POOLE CMP, , 2776-04 ####[facility] ([id number])[address] [place] [address] 26330 Platelet mean volume (Bld) [Entitic vol] 8.9 fL Normal 7-12 [facility] Comment on above: Performed By: #### Shahla POOLE CMP, , 2776-04 ####[facility] ([id number])[address] [place] [address] 47969 Platelets (Bld) [#/Vol] 328 10*3/uL Normal 150-450 [facility] Comment on above: Performed By: #### Shahla POOLE CMP, , 2776-04 ####[facility] ([id number])[address] [place] [address] 71170 RBC COUNT 3.77 X10E12/L Low 3.80-5.20 [facility] Comment on above: Performed By: #### Shahla POOLE CMP, , 2776-04 ####[facility] ([id number])[address] [place] [address] 23720 WBC (Bld) [#/Vol] 7.8 10*3/uL Normal 4.0-11.0 [facility] Comment on above: Performed By: #### Shahla POOLE CMP, , 2776-04 ####[facility] ([id number])[address] [place] [address] 49409 CBC auto differentialon 06-2 6-2024 Basophils (Bld) [#/Vol] 0.1 10*3/uL [facility] Basophils/100 WBC (Bld) 1.0 % P [facility] Eosinophils (Bld) [#/Vol] 0.4 10*3/uL [facility] Eosinophils/100 WBC (Bld) 5.1 % [facility] Erythrocyte distribution width (RBC) [Ratio] 15.0 % 11.5 - 15.0 % [facility] Hematocrit (Bld) [Volume fraction] 31.7 % Low 35 - 47 % [facility] Hemoglobin (Bld) [Mass/Vol] 10.5 g/dL Low 11.7 - 15.5 g/dL [facility] Interpretation and review of laboratory results Abnormal [facility] Lymphocytes (Bld) [#/Vol] 2.1 10*3/uL [facility] Lymphocytes/100 WBC (Bld) 27.3 % [facility] MCH (RBC) [Entitic mass] 27.7 pg 27 - 34 pg [facility] MCHC (RBC) [Mass/Vol] 33.1 g/dL 32 - 3 6 g/dL [facility] MCV (RBC) [Entitic vol] 84 fL 80 - 100 fL [facility] Monocytes (Bld) [#/Vol] 0.7 10*3/uL [facility] Monocytes/100 WBC (Bld) 9.1 % P [facility] Neutrophils (Bld) [#/Vol] 4.5 10*3/uL [facility] Neutrophils/100 WBC (Bld) 57.5 % [facility] Platelet mean volume (Bld) [Entitic vol] 8.9 fL 7 - 12 fL [facility] Platelets (Bld) [#/Vol] 328 10*3/uL [facility] RBC (Bld) [#/Vol] 3.77 10*6/uL Low [facility] WBC corrected for nucl RBC Auto (Bld) [#/Vol] 7.8 [facility] COMPREHENSIVE METABOLIC PANE Phu 10-18-2023 Albumin [Mass/Vol] 3.1 g/dL Low 3.2-5.3 [facility] Comment on above: Performed By: #### C BCA, CMP, , 2776-04 ####[facility] ([id number])[address] [place] [address] 20401 ALP [Catalytic activity/Vol] 57 U/L Normal 39-130 [facility] Comment on above: Performed By: #### C BCA, CMP, , 2776-04 ####[facility] ([id number])[address] [place] [address] 59841 ALT [Catalytic activity/Vol] 10 U/L Normal 0-31 [facility] Comment on above: Performed By: #### C BCA, CMP, , 2776-04 ####[facility] ([id number])[address] [place] [address] 52056 Anion gap [Moles/Vol] 11 mmol/L Normal 5-15 [facility] Comment on above: Performed By: #### C BCA, CMP, , 2776-04 ####[facility] ([id number])[address] [place] [address] [place] [address] AST [Catalytic activity/Vol] 14 U/L Normal 0-41 [facility] Comment on above: Performed By: #### C BCA, CMP, , 2776-04 ####[facility] ([id number])[address] [place] [address] [place] [address] Bilirubin [Mass/Vol] 0.7 mg/dL Normal 0.3-1.2 [facility] Comment on above: Performed By: #### C BCA, CMP, , 2776-04 ####[facility] ([id number])[address] [place] [address] [place] [address] Calcium [Mass/Vol] 9.3 mg/dL Normal 8.5-10.5 [facility] Comment on above: Performed By: #### C EDEL POOLE, , 2776-04 ####[facility] ([id number])[address] [place] [address] 54312 Chloride [Moles/Vol] 97 mmol/L Low 98-109 [facility] Comment on above: Performed By: #### C EDEL POOLE, , 2776-04 ####[facility] ([id number])[address] [place] [address] 87264 CO2 [Moles/Vol] 29 mmol/L Normal 22-32 [facility] Comment on above: Performed By: #### C EDEL POOLE, , 2776-04 ####[facility] ([id number])[address] [place] [address] 81007 Creatinine [Mass/Vol] 2.98 mg/dL High 0.40-1.00 [facility] Comment on above: Result Comment: METH OD TRACEABLE TO IDMS STANDARD Performed By: #### C EDEL POOLE, , 2776-04 ####[facility] ([id number])[address] [place] [address] 89906 GFR/1.73 sq M.predicted among non-blacks MDRD (S/P/Bld) [Vol rate/Area] 18 mL/min/{1.73_m2} Low >59 [facility] Comment on above: Result Comment: Reported eGFR is based on the CKD-EPI 1 equation that does not use a race coefficient. Performed By: #### C EDEL POOLE, , 2776-04 ####[facility] ([id number])[address] [place] [address] 52080 Glucose [Mass/Vol] 92 mg/dL Normal 65-99 [facility] Comment on above: Performed By: #### C EDEL POOLE, , 2776-04 ####[facility] ([id number])[address] [place] [address] 07928 Potassium [Moles/Vol] 4.2 mmol/L Normal 3.5-5.0 [facility] Comment on above: Performed By: #### C BCA, CMP, 07350-9, 2777-1 ####[facility] ([id number])[address] [place] [address] 03338 Protein [Mass/Vol] 6.0 g/dL Normal 6.0-8.0 [facility] Comment on above: Performed By: #### C VIRGILIO, CMP, , 7-1 ####[facility] ([id number])[address] [place] [address] 58395 Sodium [Moles/Vol] 137 mmol/L Normal 134-146 [facility] Comment on above: Performed By: #### C VIRGILIO, CMP, , 27771 ####[facility] ([id number])[address] [place] [address] 42528 Urea nitrogen [Mass/Vol] 37 mg/dL High 5-23 [facility] Comment on above: Performed By: #### C BCA, CMP, , 2777-1 ####[facility] ([id number])[address] [place] [address] 89117 Calcium.ionized (Bld) [Moles /Vol]on 10-18-2023 [facility] PORTABLE ICA 4.7 mg/dL Normal 4.5-5.3 [facility] Comment on above: Performed By: #### 8 9579-7 #### [facility] ([id number]) [address] [place] [address]159 Clinical Pathology Reviewon 10-18-2023 [facility] [address] [place] [address] Clinical Pathology Report Patient Name:DANIELLE MONTANA:1965 (Age: 58)Gender:FTaken:09/23eported:hysician(s):Soniya Flores MD ([phone])Copy To: Rec. 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 No monoclonal protein identified. Report Electronically Signed Out df/10/18/2023nicci Gomez MD [facility] [address], License number: [id number]. Clinical History D17.9, I16.0, E87.6. URINE PROTEIN ELECTROPHORESIS SAMPLE NUMBER: [id number] RELATIVE ELECTROPHORETIC CONCENTRATIONS (%) ? 100.0 Urine Protein 1410 mg/L (Electrophoretic gels and densitometric tracings on file in lab.) Specimen(s) Received Urine Protein Electrophoresis Fee Codes(s): 1; 31463-84 COPATH [facility] Comprehensive metabolic pane phu 10-18-2023 Albumin [Mass/Vol] 3.1 g/dL Low 3.2 - 5.3 g/dL [facility] ALP [Catalytic activity/Vol] 57 U/L 39 - 130 U/L [facility] ALT No additional P-5'-P [Catalytic activity/Vol] 10 U/L 0 - 31 U/L [facility] Anion gap [Moles/Vol] 11 mmol/L 5 - 15 mmol/L [facility] AST [Catalytic activity/Vol] 14 U/L 0 - 41 U/L [facility] Bilirubin [Mass/Vol] 0.7 mg/dL 0.3 - 1 .2 mg/dL [facility] Calcium [Mass/Vol] 9.3 mg/dL 8.5 - 10. 5 mg/dL [facility] Chloride [Moles/Vol] 97 mmol/L Low 98 - 10 9 mmol/L [facility] CO2 [Moles/Vol] 29 mmol/L 22 - 32 mmol/L [facility] Creatinine [Mass/Vol] 2.98 mg/dL High 0.40 - 1.00 mg/dL [facility] Comment on above: METHOD TRACEABLE TO [facility] STAND[facility] eGFR (CKD-EPI)non-race dependent 18 Low - PINF [facility] Comment on above: Reported eGFR is based on the CKD-EPI 2020 equation that does not use a race coefficient. Glucose [Mass/Vol] 92 mg/dL 65 - 99 mg/dL [facility] Interpretation and review of laboratory results Abnormal [facility] Potassium [Moles/Vol] 4.2 mmol/L 3.5 - 5.0 mmol/L [facility] Protein [Mass/Vol] 6.0 g/dL 6.0 - 8.0 g/dL [facility] Sodium [Moles/Vol] 137 mmol/L 134 - 146 mmol/L [facility] Urea nitrogen [Mass/Vol] 37 mg/dL High 5 - 23 mg/dL [facility] MAGNESIUMon 10-18-2023 Magnesium [Mass/Vol] 2.0 mg/dL Normal 1.8-2.6 [facility] Comment on above: Performed By: #### C BCA, CMP, 87746-6, 2777-1 ####[facility] ([id number])[address] [place] [address] Magnesiumon 10-18-2023 Magnesium [Mass/Vol] 2.0 mg/dL 1.8 - 2 .6 mg/dL [facility] Myeloperoxidase IgG Qn (S)on 10-18-2023 Myeloperoxidase IgG >8.0 High <0.4 (Negative) [facility] Comment on above: Result Comment: NOTE Interpretation: Positive (>=1.0) Test Performed by: [address] [address] Biogeographer: Ledy Son Ph.D.; CLIA# [id number] Performed By: #### 8 9579-7 #### [facility] ([id number]) [address] [place] [address] No Panel Informationon 10-17 [facility] PHOSPHORUSon 10-18-2023 Phosphate [Mass/Vol] 5.1 mg/dL High 2.4-4.9 [facility] Comment on above: Performed By: #### C VIRGILIO, CMP, 02709-2, 2777-1 ####[facility] ([id number])[address] [place] [address] 48133 POCT Ionized Calciumon 10-17 Calcium.ionized (Bld) [Moles/Vol] 4.7 mg/dL 4.5 - 5.3 mg/dL [facility] Phosphate [Mass/Vol]on 10-17 Interpretation and review of laboratory results Abnormal [facility] Phosphoruson 10-18-2023 Phosphate [Mass/Vol] 5.1 mg/dL High 2.4 - 4 .9 mg/dL [facility] CBC AND AUTO DIFFon 10-17-19 ABSOLUTE BASOPHIL 0.1 X10E9/L Normal 0.0-0.2 [facility] Comment on above: Performed By: #### C VIRGILIO, BMP, , 97219-6, 26597-7 #### [facility] ([id number]) [address] [place] [address] 25340 ABSOLUTE NEUTROPHIL 4.9 X10E9/L Normal 1.5-6.6 [facility] Comment on above: Performed By: #### C VIRGILIO, BMP, , 59469-1, 09349-1 #### [facility] ([id number]) [address] [place] [address] 80783 Basophils/100 WBC (Bld) 0.7 % Normal [facility] Comment on above: Performed By: #### C BCA, BMP, 50439-5, 22272-5, 32557-6 #### [facility] ([id number]) [address] [place] [address] 69612 Eosinophils (Bld) [#/Vol] 0.3 10*3/uL Normal 0.0-0.4 [facility] Comment on above: Performed By: #### C VIRGILIO, BMP, , 40701-2, 06576-5 #### [facility] ([id number]) [address] [place] [address] 20509 Eosinophils/100 WBC (Bld) 4.3 % Normal [facility] Comment on above: Performed By: #### C VIRGILIO, BMP, , 65042-3, 99540-8 #### [facility] ([id number]) [address] [place] [address] 60811 Erythrocyte distribution width (RBC) [Ratio] 14.7 % Normal 11.5-15.0 [facility] Comment on above: Performed By: #### Shahla POOLE, MARIO, , 94662-5, 64849-3 #### [facility] ([id number]) [address] [place] [address] 80678 Hematocrit (Bld) [Volume fraction] 30.3 % Low 35-47 [facility] Comment on above: Performed By: #### C VIRGILIO, BMP, , 56635-4, 06377-1 #### [facility] ([id number]) [address] [place] [address] 29732 Hemoglobin (Bld) [Mass/Vol] 10.1 g/dL Low 11.7-15.5 [facility] Comment on above: Performed By: #### C VIRGILIO, BMP, , 60091-4, 95556-3 #### [facility] ([id number]) [address] [place] [address] 23590 Lymphocytes (Bld) [#/Vol] 1.9 10*3/uL Normal 1.0-3.5 [facility] Comment on above: Performed By: #### C BCA, BMP, , 12085-0, 84835-3 #### [facility] ([id number]) [address] [place] [address] 87429 Lymphocytes/100 WBC (Bld) 24.6 % Normal [facility] Comment on above: Performed By: #### C BCA, BMP, , 21066-9, 37959-2 #### [facility] ([id number]) [address] [place] [address] 04114 MCH (RBC) [Entitic mass] 27.9 pg Normal 27-34 [facility] Comment on above: Performed By: #### C VIRGILIO, BMP, , 99049-7, 81622-3 #### [facility] ([id number]) [address] [place] [address] 30244 MCHC (RBC) [Mass/Vol] 33.4 g/dL Normal 32-36 [facility] Comment on above: Performed By: #### C BCA, BMP, , 12426-7, 03164-6 #### [facility] ([id number]) [address] [place] [address] 50391 MCV (RBC) [Entitic vol] 84 fL Normal 80-100 [facility] Comment on above: Performed By: #### Shahla BCA, BMP, , 30090-2, 55701-5 #### [facility] ([id number]) [address] [place] [address] 01239 Monocytes (Bld) [#/Vol] 0.6 10*3/uL Normal 0-0.9 [facility] Comment on above: Performed By: #### Shahla BCA, BMP, , 48293-2, 53384-2 #### [facility] ([id number]) [address] [place] [address] 06662 Monocytes/100 WBC (Bld) 8.3 % Normal [facility] Comment on above: Performed By: #### C BCA, BMP, 51317-2, 77028-1, 17103-8 #### [facility] ([id number]) [address] [place] [address] 28865 Neutrophils/100 WBC (Bld) 62.1 % Normal [facility] Comment on above: Performed By: #### C BCA, BMP, 58408-6, 60914-0, 03279-3 #### [facility] ([id number]) [address] [place] [address] 04497 Platelet mean volume (Bld) [Entitic vol] 9.0 fL Normal 7-12 [facility] Comment on above: Performed By: #### Shahla BCA, BMP, 91358-5, 78149-4, 54447-8 #### [facility] ([id number]) [address] [place] [address] 82054 Platelets (Bld) [#/Vol] 278 10*3/uL Normal 150-450 [facility] Comment on above: Performed By: #### C BCA, BMP, 05289-1, 89305-0, 93615-0 #### [facility] ([id number]) [address] [place] [address] 33256 RBC COUNT 3.62 X10E12/L Low 3.80-5.20 [facility] Comment on above: Performed By: #### C BCA, BMP, 06772-5, 89063-6, 50325-2 #### [facility] ([id number]) [address] [place] [address] 11180 WBC (Bld) [#/Vol] 7.9 10*3/uL Normal 4.0-11.0 [facility] Comment on above: Performed By: #### C BCA, BMP, 55358-6, 62353-1, 92769-4 #### [facility] ([id number]) [address] [facility] [place] [address] CBC auto differentialon 09-23 Basophils (Bld) [#/Vol] [...] Albumin [Mass/Vol] 3.0 g/dL Low 3.2-5.3 [facility] Comment on above: Performed By: #### C BCA, BMP, 59863-3, 06598-2, 89565-2 #### [facility] ([id number]) [address] [place] [address] 71172 ALP [Catalytic activity/Vol] 56 U/L Normal 39-130 [facility] Comment on above: Performed By: #### C BCA, BMP, 53564-1, 82849-6, 18067-2 #### [facility] ([id number]) [address] [place] [address] 95717 ALT [Catalytic activity/Vol] 10 U/L Normal 0-31 [facility] Comment on above: Performed By: #### C BCA, BMP, 74302-8, 45774-9, 73736-1 #### [facility] ([id number]) [address] [place] [address] [id number] Anion gap [Moles/Vol] 10 mmol/L Normal 5-15 [facility] Comment on above: Performed By: #### C BCA, BMP, 91412-2, 43957-7, 87556-8 #### [facility] ([id number]) [address] [place] [address] [id number] AST [Catalytic activity/Vol] 14 U/L Normal 0-41 [facility] Comment on above: Performed By: #### C BCA, BMP, 56171-3, 85803-6, 85376-5 #### [facility] ([id number]) [address] [place] [address] 12994 Bilirubin [Mass/Vol] 0.7 mg/dL Normal 0.3-1.2 [facility] Comment on above: Performed By: #### C BCA, BMP, 41092-5, 38043-7, 32405-2 #### [facility] ([id number]) [address] [place] [address] 79269 Calcium [Mass/Vol] 8.8 mg/dL Normal 8.5-10.5 [facility] Comment on above: Performed By: #### C BCA, BMP, 72088-7, 32504-4, 63708-6 #### [facility] ([id number]) [address] [place] [address] 30265 Chloride [Moles/Vol] 101 mmol/L Normal 98-109 [facility] Comment on above: Performed By: #### C BCA, BMP, 49803-8, 25662-6, 13951-0 #### [facility] ([id number]) [address] [place] [address] 30316 CO2 [Moles/Vol] 28 mmol/L Normal 22-32 [facility] Comment on above: Performed By: #### C BCA, BMP, 95460-8, 96666-6, 16356-2 #### [facility] ([id number]) [address] [place] [address] 71651 Creatinine [Mass/Vol] 2.77 mg/dL High 0.40-1.00 [facility] Comment on above: Result Comment: METH OD TRACEABLE TO IDMS STANDARD Performed By: #### C BCA, BMP, 36671-7, 03827-9, 58307-7 #### [facility] ([id number]) [address] [place] [address] 77877 GFR/1.73 sq M.predicted among non-blacks MDRD (S/P/Bld) [Vol rate/Area] 19 mL/min/{1.73_m2} Low >59 [facility] Comment on above: Result Comment: Reported eGFR is based on the CKD-EPI 2020 equation that does not use a race coefficient. Performed By: #### C BCA, BMP, 72900-9, 69438-6, 87660-7 #### [facility] ([id number]) [address] [place] [address] 93529 Glucose [Mass/Vol] 97 mg/dL Normal 65-99 [facility] Comment on above: Performed By: #### C BCA, BMP, , 72709-7, 68576-2 #### [facility] ([id number]) [address] [place] [address] 88261 Potassium [Moles/Vol] 3.6 mmol/L Normal 3.5-5.0 [facility] Comment on above: Performed By: #### C BCA, BMP, , 90489-8, 06840-0 #### [facility] ([id number]) [address] [place] [address] 65024 Protein [Mass/Vol] 5.7 g/dL Low 6.0-8.0 [facility] Comment on above: Performed By: #### C BCA, BMP, , 83255-9, 17901-2 #### [facility] ([id number]) [address] [place] [address] 12417 Sodium [Moles/Vol] 139 mmol/L Normal 134-146 [facility] Comment on above: Performed By: #### C BCA, BMP, , 99481-1, 16208-1 #### [facility] ([id number]) [address] [place] [address] [place] [address] Urea nitrogen [Mass/Vol] 26 mg/dL High 5-23 [facility] Comment on above: Performed By: #### C BCA, BMP, , 48519-1, 14265-5 #### [facility] ([id number]) [address] [place] [address] 43688 Calcium.ionized (Bld) [Moles /Vol]on 10-17-2023 [facility] PORTABLE ICA 4.7 mg/dL Normal 4.5-5.3 [facility] Comment on above: Performed By: #### C BCA, BMP, 28255-4, 45459-8, 40702-4 #### [facility] ([id number]) [address] [facility], [place] [address] Comprehensive metabolic pane phu 10-17-2023 Albumin [Mass/Vol] 3.0 g/dL Low 3.2 - 5.3 g/dL [facility] ALP [Catalytic activity/Vol] 56 U/L 39 - 130 U/L [facility] ALT No additional P-5'-P [Catalytic activity/Vol] 10 U/L 0 - 31 U/L [facility] Anion gap [Moles/Vol] 10 mmol/L 5 - 15 mmol/L [facility] AST [Catalytic activity/Vol] 14 U/L 0 - 41 U/L [facility] Bilirubin [Mass/Vol] 0.7 mg/dL 0.3 - 1 .2 mg/dL [facility] Calcium [Mass/Vol] 8.8 mg/dL 8.5 - 10. 5 mg/dL [facility] Chloride [Moles/Vol] 101 mmol/L 98 - 10 9 mmol/L [facility] CO2 [Moles/Vol] 28 mmol/L 22 - 32 mmol/L [facility] Creatinine [Mass/Vol] 2.77 mg/dL High 0.40 - 1.00 mg/dL [facility] Comment on above: METHOD TRACEABLE TO IDME STANDARD eGFR (CKD-EPI)non-race dependent 19 Low - PINF [facility] Comment on above: Reported eGFR is based on the CKD-EPI 2020 equation that does not use a race coefficient. Glucose [Mass/Vol] 97 mg/dL 65 - 99 mg/dL [facility] Interpretation and review of laboratory results Abnormal [facility] Potassium [Moles/Vol] 3.6 mmol/L 3.5 - 5.0 mmol/L [facility] Protein [Mass/Vol] 5.7 g/dL Low 6.0 - 8.0 g/dL [facility] Sodium [Moles/Vol] 139 mmol/L 134 - 146 mmol/L [facility] Urea nitrogen [Mass/Vol] 26 mg/dL High 5 - 23 mg/dL [facility] Creatinine, urine, 24 houron 10-17-2023 Creatinine (24H U) [Mass/Time] 1.38 [facility] FECAL OCCULT BLOODon 024 Hemoglobin.gastrointesti nal Ql (Stl) Negative Normal NEG [facility] Comment on above: Performed By: #### 2 335-8 ####[facility] ([id number])[address] [place] [address] Glomerular Basement Membrane IgG, Serumon 10-17-2023 Basement membrane IgG Qn (S) U <1.0 (Negative) U [facility] Comment on above: NOTE Test Performed by: [place] [address] Biogeographer: Ledy Son Ph.D.; CLIA# [id number] Hemoglobin.gastrointestinal Ql (Stl)on 10-17-2023 [facility] MAGNESIUMon 10-17-2023 Magnesium [Mass/Vol] 2.0 mg/dL Normal 1.8-2.6 [facility] Comment on above: Performed By: #### C BCA, [facility], 52560-3, 95341-5, 31054-2 #### [facility] ([id number]) [address] [place] [address] 69934 Magnesiumon 10-17-2023 Magnesium [Mass/Vol] 2.0 mg/dL 1.8 - 2 .6 mg/dL [facility] Myeloperoxidase Antibodies, IgG, Serumon 10-17-2023 Myeloperoxidase IgG Qn (S) U High <0.4 (Negative) U [facility] Comment on above: NOTE Interpretation: Positive (>=1.0) Test Performed by: [place] [address] Biogeographer: Ledy Son Ph.D.; CLIA# [id number] Myeloperoxidase IgG Qn (S)on 10-17-2023 Interpretation and review of laboratory results Abnormal [facility] [place] Lung Ventilationon 2023 Clinical history:Elevated d-dimer [...] Tony Lowery MD on 10/17/2023 9:13 AM [facility] Tony Lowery MD - 10/17/2023 [...] MD on 10/17/2023 9:13 AM [facility] Radiology Study observation (narrative) [facility] [place] Lung VentilationOrdered B y: Tony Lowery on 10-17-2023 [facility] Work Phone: [place] VENTILATION PERFUSION CHAZ G [...] Lowery MD on 10/17/2023 9:13 AM Normal [facility] No Panel Informationon 10-16 [facility] Occult blood x 1, stoolon Hemoglobin.gastrointesti nal Ql (Stl) Negative Negative^N egative [facility] PHOSPHORUSon 10-17-2023 Phosphate [Mass/Vol] 4.1 mg/dL Normal 2.4-4.9 [facility] Comment on above: Performed By: #### C BCA, BMP, 04362-4, 54293-1, 28718-1 #### [facility] ([id number]) [address] [place] [address] 16662 POCT Ionized Calciumon 10-16 Calcium.ionized (Bld) [Moles/Vol] 4.7 mg/dL 4.5 - 5.3 mg/dL [facility] POTASSIUMon 10-17-2023 Potassium [Moles/Vol] 4.2 mmol/L Normal 3.5-5.0 [facility] Comment on above: Performed By: #### 2 823-3 ####[facility] ([id number])[address] [place] [address] 43135 Phosphate [Mass/Vol]on 10-16 [facility] Phosphoruson 10-17-2023 Phosphate [Mass/Vol] 4.1 mg/dL 2.4 - 4 .9 mg/dL [facility] Potassiumon 10-17-2023 Potassium [Moles/Vol] 4.2 mmol/L 3.5 - 5.0 mmol/L [facility] Potassium [Moles/Vol]on 09-23 [facility] Protein, urine, 24 houron Interpretation and review of laboratory results Abnormal [facility] Protein (24H U) [Mass/Time] 6380 High [facility] Proteinase 3 IgGon Proteinase 3 IgG IA Qn 0.2 U <0.4 (Negative) [facility] Comment on above: NOTE Test Performed by: [address], [place] [address] Biogeographer: Ledy Son Ph.D.; CLIA# [id number] THYROID PROFILEon 10-17-2023 Free T4 [Mass/Vol] 1.19 ng/dL Normal 0.61-1.60 [facility] Comment on above: Performed By: #### C VIRGILIO, [facility], 08294-9, 44007-2, 93035-1 #### [facility] ([id number]) [address] [place] [address] 61006 TSH 2.17 uIU/mL Normal 0.49-4.67 [facility] Comment on above: Performed By: #### C VIRGILIO, MARIO, 35110-7, 47461-3, 53095-6 #### [facility] ([id number]) [address] [place] [address] 42874 Thyroid profile includes TSH FT4on 10-17-2023 Free T4 [Mass/Vol] 1.19 ng/dL 0.61 - 1.60 ng/dL [facility] TSH Qn 2.17 m[IU]/L [facility] US.doppler Lower extremity v ein - bilateralon [...] thrombosis of the lower extremities. [facility] US.doppler Lower extremity v ein - bilateralOrdered By: Jong Haddad on 10-17-2023 [facility] Work Phone: Urine Volume and Timeon 09-23 Specimen volume Unsp time (U) 4400 mL [facility] Urine output 24 hour 24 h [facility] 24 HR URINE CREATININEon URINE CREATININE 1.38 g/24h Normal 0.80-1.80 [facility] Comment on above: Performed By: #### U CR, UPRO ####[facility] ([id number])[address] [facility], [address] [place] [address] 45642 24 HR URINE TOTAL PROTEINon 10-16-2023 URINE TOTAL PROTEIN 6380 mg/24h High 0-150 [facility] Comment on above: Performed By: #### U CR, UPRO ####[facility] ([id number])[address] [facility], [address] [place] [address] 18750 SAUL Screen w/ Reflexon 10-15 Nuclear Ab IA Ql (S) Negative Negativ e^N egative [facility] Comment on above: Testing performed using multiplex flow immunoassay. Eleven different antigens associated with systemic autoimmune diseases (dsDNA,Sm,Sm/SECURITY ORDERLY,SECURITY ORDERLY,Chromatin, SSA,SSB,Yoly-1,Scl70,Ribo P,Centromere B) are included in this screening test. CBC AND AUTO DIFFon 10-16-19 24 ABSOLUTE BASOPHIL 0.0 X10E9/L Normal 0.0-0.2 [facility] Comment on above: Performed By: #### C BCA, BMP, 46746-8, 96958-1, 32894-0 #### [facility] ([id number]) [address] [place] [address], [place] [address] ABSOLUTE NEUTROPHIL 4.9 X10E9/L Normal 1.5-6.6 [facility] Comment on above: Performed By: #### C BCA, BMP, 56024-2, 26874-1, 05240-9 #### [facility] ([id number]) [address] [place] [address] 85369 Basophils/100 WBC (Bld) 0.6 % Normal [facility] Comment on above: Performed By: #### C BCA, BMP, , 05335-2, 41135-2 #### [facility] ([id number]) [address] [place] [address] 69715 Eosinophils (Bld) [#/Vol] 0.3 10*3/uL Normal 0.0-0.4 [facility] Comment on above: Performed By: #### C BCA, BMP, , 60351-1, 48103-9 #### [facility] ([id number]) [address] [place] [address] 01698 Eosinophils/100 WBC (Bld) 4.2 % Normal [facility] Comment on above: Performed By: #### C BCA, BMP, , 13360-0, 08389-0 #### [facility] ([id number]) [address] [place] [address] 40381 Erythrocyte distribution width (RBC) [Ratio] 14.8 % Normal 11.5-15.0 [facility] Comment on above: Performed By: #### C BCA, BMP, , 24801-5, 89308-3 #### [facility] ([id number]) [address] [place] [address] 60523 Hematocrit (Bld) [Volume fraction] 28.5 % Low 35-47 [facility] Comment on above: Performed By: #### C BCA, BMP, 92413-4, 94154-2, 02808-7 #### [facility] ([id number]) [address] [place] [address] 29715 Hemoglobin (Bld) [Mass/Vol] 9.5 g/dL Low 11.7-15.5 [facility] Comment on above: Performed By: #### C VIRGILIO, MARIO, , 33688-6, 09203-7 #### [facility] ([id number]) [address] [place] [address] 58456 Lymphocytes (Bld) [#/Vol] 2.1 10*3/uL Normal 1.0-3.5 [facility] Comment on above: Performed By: #### C VIRGILIO, MARIO, , 07064-4, 30075-7 #### [facility] ([id number]) [address] [place] [address] 95344 Lymphocytes/100 WBC (Bld) 26.6 % Normal [facility] Comment on above: Performed By: #### C VIRGILIO, MARIO, , 89486-7, 10255-9 #### [facility] ([id number]) [address] [place] [address] 19992 MCH (RBC) [Entitic mass] 27.7 pg Normal 27-34 [facility] Comment on above: Performed By: #### Shahla POOLE, MARIO, , 58783-8, 28268-7 #### [facility] ([id number]) [address] [place] [address] 50157 MCHC (RBC) [Mass/Vol] 33.6 g/dL Normal 32-36 [facility] Comment on above: Performed By: #### C VIRGILIO, BMP, , 44200-0, 73241-5 #### [facility] ([id number]) [address] [place] [address] 16964 MCV (RBC) [Entitic vol] 83 fL Normal 80-100 P [facility] Comment on above: Performed By: #### C BCA, BMP, 56525-8, 97589-4, 47229-6 #### [facility] ([id number]) [address] [place] [address] 17631 Monocytes (Bld) [#/Vol] 0.7 10*3/uL Normal 0-0.9 [facility] Comment on above: Performed By: #### C BCA, BMP, 44255-4, 78341-4, 25034-6 #### [facility] ([id number]) [address] [place] [address] 14951 Monocytes/100 WBC (Bld) 8.2 % Normal P [facility] Comment on above: Performed By: #### C BCA, BMP, 59411-4, 71155-9, 96860-5 #### [facility] ([id number]) [address] [place] [address] 82967 Neutrophils/100 WBC (Bld) 60.4 % Normal [facility] Comment on above: Performed By: #### C BCA, BMP, 94931-3, 91740-4, 45750-6 #### [facility] ([id number]) [address] [place] [address] 54481 Platelet mean volume (Bld) [Entitic vol] 8.9 fL Normal 7-12 [facility] Comment on above: Performed By: #### C BCA, BMP, 42528-3, 76499-2, 69516-0 #### [facility] ([id number]) [address] [place] [address] 47044 Platelets (Bld) [#/Vol] 252 10*3/uL Normal 150-450 [facility] Comment on above: Performed By: #### C BCA, BMP, 44470-3, 99921-2, 25208-2 #### [facility] ([id number]) [address] [place] [address] RBC COUNT 3.45 X10E12/L Low 3.80-5.20 [facility] Comment on above: Performed By: #### C MARIO POOLE, 04900-0, 51116-0, 29474-1 #### [facility] ([id number]) [address] [place] [address] 20147 WBC (Bld) [#/Vol] 8.0 10*3/uL Normal 4.0-11.0 [facility] Comment on above: Performed By: #### C MARIO POOLE, 90878-4, 13485-3, 93955-8 #### [facility] ([id number]) [address] [place] [address] 36615 CBC auto differentialon 09-23 Basophils (Bld) [#/Vol] 0.0 10*3/uL [facility] Basophils/100 WBC (Bld) 0.6 % [facility] Eosinophils (Bld) [#/Vol] 0.3 10*3/uL [facility] Eosinophils/100 WBC (Bld) 4.2 % [facility] Erythrocyte distribution width (RBC) [Ratio] 14.8 % 11.5 - 15.0 % [facility] Hematocrit (Bld) [Volume fraction] 28.5 % Low 35 - 47 % [facility] Hemoglobin (Bld) [Mass/Vol] 9.5 g/dL Low 11.7 - 15.5 g/dL [facility] Interpretation and review of laboratory results Abnormal [facility] Lymphocytes (Bld) [#/Vol] 2.1 10*3/uL [facility] Lymphocytes/100 WBC (Bld) 26.6 % [facility] MCH (RBC) [Entitic mass] 27.7 pg 27 - 34 pg [facility] MCHC (RBC) [Mass/Vol] 33.6 g/dL 32 - 3 6 g/dL [facility] MCV (RBC) [Entitic vol] 83 fL 80 - 100 fL [facility] Monocytes (Bld) [#/Vol] 0.7 10*3/uL [facility] Monocytes/100 WBC (Bld) 8.2 % P [facility] Neutrophils (Bld) [#/Vol] 4.9 10*3/uL [facility] Neutrophils/100 WBC (Bld) 60.4 % [facility] Platelet mean volume (Bld) [Entitic vol] 8.9 fL 7 - 12 fL [facility] Platelets (Bld) [#/Vol] 252 10*3/uL [facility] RBC (Bld) [#/Vol] 3.45 10*6/uL Low [facility] WBC corrected for nucl RBC Auto (Bld) [#/Vol] 8.0 [facility] COMPREHENSIVE METABOLIC PANE Phu 10-16-2023 Albumin [Mass/Vol] 2.7 g/dL Low 3.2-5.3 [facility] Comment on above: Performed By: #### C BCA, BMP, 90176-9, 67793-1, 92218-5 #### [facility] ([id number]) [address] [place] [address] 02837 ALP [Catalytic activity/Vol] 55 U/L Normal 39-130 [facility] Comment on above: Performed By: #### C BCA, BMP, 03695-0, 27972-4, 83698-5 #### [facility] ([id number]) [address] [place] [address] 54968 ALT [Catalytic activity/Vol] 9 U/L Normal 0-31 [facility] Comment on above: Performed By: #### C BCA, BMP, 60276-1, 74935-7, 53115-4 #### [facility] ([id number]) [address] [place] [address] 44159 Anion gap [Moles/Vol] 8 mmol/L Normal 5-15 [facility] Comment on above: Performed By: #### C BCA, BMP, 16776-1, 45157-3, 86678-0 #### [facility] ([id number]) [address] [place] [address] 44894 AST [Catalytic activity/Vol] 13 U/L Normal 0-41 [facility] Comment on above: Performed By: #### C BCA, BMP, 27484-9, 54707-5, 79105-4 #### [facility] ([id number]) [address] [place] [address] 71439 Bilirubin [Mass/Vol] 0.4 mg/dL Normal 0.3-1.2 [facility] Comment on above: Performed By: #### C BCA, BMP, , 14896-8, 41655-5 #### [facility] ([id number]) [address] [place] [address] 42555 Calcium [Mass/Vol] 8.4 mg/dL Low 8.5-10.5 [facility] Comment on above: Performed By: #### C BCA, BMP, , 44802-8, 53327-3 #### [facility] ([id number]) [address] [place] [address] 10213 Chloride [Moles/Vol] 101 mmol/L Normal 98-109 [facility] Comment on above: Performed By: #### C BCA, BMP, , 49637-1, 90169-3 #### [facility] ([id number]) [address] [place] [address] 23243 CO2 [Moles/Vol] 28 mmol/L Normal 22-32 [facility] Comment on above: Performed By: #### C BCA, BMP, , 37238-6, 87083-0 #### [facility] ([id number]) [address] [place] [address] 03651 Creatinine [Mass/Vol] 2.63 mg/dL High 0.40-1.00 [facility] Comment on above: Result Comment: METH OD TRACEABLE TO IDMS STANDARD Performed By: #### C VIRGILIO, MARIO, , 83164-2, 63760-9 #### [facility] ([id number]) [address] [place] [address] 75619 GFR/1.73 sq M.predicted among non-blacks MDRD (S/P/Bld) [Vol rate/Area] 20 mL/min/{1.73_m2} Low >59 [facility] Comment on above: Result Comment: Reported eGFR is based on the CKD-EPI 2020 equation that does not use a race coefficient. Performed By: #### C VIRGILIO, MARIO, , 14679-5, 08047-1 #### [facility] ([id number]) [address] [place] [address] 63011 Glucose [Mass/Vol] 107 mg/dL High 65-99 [facility] Comment on above: Performed By: #### C VIRGILIO, MARIO, , 98698-1, 80979-2 #### [facility] ([id number]) [address] [place] [address] 99764 Potassium [Moles/Vol] 3.2 mmol/L Low 3.5-5.0 [facility] Comment on above: Performed By: #### C VIRGILIO, MARIO, , 31772-8, 43681-9 #### [facility] ([id number]) [address] [place] [address] 78835 Protein [Mass/Vol] 5.4 g/dL Low 6.0-8.0 [facility] Comment on above: Performed By: #### C VIRGILIO, BMP, , 44238-8, 03019-2 #### [facility] ([id number]) [address] [place] [address] 64299 Sodium [Moles/Vol] 137 mmol/L Normal 134-146 [facility] Comment on above: Performed By: #### C BCA, BMP, 32632-6, 11664-4, 27157-0 #### [facility] ([id number]) [address] [place] [address] 70079 Urea nitrogen [Mass/Vol] 23 mg/dL Normal 5-23 [facility] Comment on above: Performed By: #### C BCA, BMP, 99855-4, 06321-6, 40258-9 #### [facility] ([id number]) [address] [place] [address] 14499 Calcium.ionized (Bld) [Moles /Vol]on 10-16-2023 [facility] PORTABLE ICA 4.6 mg/dL Normal 4.5-5.3 [facility] Comment on above: Performed By: #### C BCA, BMP, 90237-9, 90096-4, 58617-8 #### [facility] ([id number]) [address] [place] [address] 80447 Cardiac echo study Procedure Ordered By: Cole Hannah on 10-16-2023 Aortic root 3.30 cm [employer] Work Phone: AV mean gradient 7.00 mmHg [employer] Work Phone: AV peak gradient 13.99 mmHg [employer] Work Phone: AV peak gerber 187.00 cm/s [employer] Work Phone: AV valve area 2.07 cm2 [employer] Work Phone: AV Velocity Ratio 0.66 [facility] Work Phone: AV VTI 38.50 cm [employer] Work Phone: E wave deceleration time 232.00 msec [employer] Work Phone: E/A ratio 1.62 [employer] Work Phone: Echo EF Estimated 69 % [facility] Work Phone: EF 69 % [facility] Work Phone: Energy loss index 1.18 [facility] Work Phone: FS 38 % 28 - 44 % [facility] Work Phone: Interventricular Septum Diastolic Thickness by 2D 10 cm [facility] Work Phone: IVS 1.00 cm 0.6 - 1.1 cm [facility] Work Phone: LA size 3.70 cm [employer] Work Phone: LA volume 71.00 cm3 [employer] Work Phone: LA Volume Index 28.1 mL/m2 [facility] Work Phone: Left Ventricle Mass [id number] g [employer] Work Phone: LV Diastolic Volume 101.00 mL [facility] [employer] Work Phone: LV ESV A2C 61.50 mL [employer] Work Phone: LV ESV A4C 81.70 mL [employer] Work Phone: LV RWT 2D 40.00 [employer] Work Phone: LV Systolic Volume 31.70 mL [facility] Center[facility] Work Phone: LVIDd 5.00 cm 7.85 - 10.91 cm [facility] Work [facility]: LVIDs 3.10 cm 4.53 - 6.87 cm [employer] Work Phone: LVOT diameter 2.00 cm [employer] Work Phone: LVOT peak gerber 1.16 m/s [employer] Work Phone: LVOT peak VTI 25.40 cm [employer] Work Phone: LVOT stroke volume 79.80 ml [facility] Work Phone: MV Peak A Gerber 83.70 cm/s [facility] Work Phone: MV Peak E Gerber 136.00 cm/s [facility] Work Phone: MV pressure 1/2 time 68.00 ms [facility] [employer] Work Phone: MV TDI E' (medial) 4.68 cm/s [facility] Work Phone: MV valve area p 1/2 method 3.24 cm2 [facility] Work Phone: PW 1.00 cm 0.6 - 1.1 cm [employer] Work Phone: RA 2D Volume 16.8 mL/m2 [employer] Work Phone: RA area 15.3 cm2 [employer] Work Phone: RV diastolic dimension (basal) 39.0 mm [employer] Work Phone: RVID d 3.9 cm [employer] Work Phone: TAPSE 2.09 cm [employer] Work Phone: TASV 11.5 cm/s [facility] Work Phone: TDI 6.64 cm/s [employer] Work Phone: Valve area - Index 0.8 [facility] Work Phone: ZLVIDD -6.16 [facility] Work Phone: ZLVIDS -4.64 [employer] Work Phone: [facility] Work Phone: Cardiac echo study Procedure on [...] Mitral valve structure is normal. There is pqoai-li-gpmr regurgitation with a centrally directed jet. There [...] is normal. [facility] Radiology Study observation (narrative) [facility] Clinical Pathologyon 024 Clinical Pathology Normal [facility] Comment on above: Result Comment: [facility] [address] [place] [address] Clinical Pathology Report Patient Name:DANIELLE MONTANA:1965 (Age: 58)Gender:FTaken:4Reported:4Physician(s):Alhaji Flores MD ([phone])Copy To: Rec. 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 No monoclonal protein identified. Report Electronically Signed Out 10/18/2023nicci Gomez MD [facility] [address] [place] [address], License number: [id number]. Clinical History D17.9, I16.0, E87.6. URINE PROTEIN ELECTROPHORESIS SAMPLE NUMBER: [id number] RELATIVE ELECTROPHORETIC CONCENTRATIONS (%) ? 100.0 Urine Protein 1410 mg/L (Electrophoretic gels and densitometric tracings on file in lab.) Specimen(s) Received Urine Protein Electrophoresis Fee Codes(s): 1; 74286-91 Comprehensive metabolic pane [facility] 10-16-2023 Albumin [Mass/Vol] 2.7 g/dL Low 3.2 - 5.3 g/dL [facility] ALP [Catalytic activity/Vol] 55 U/L 39 - 130 U/L [facility] ALT No additional P-5'-P [Catalytic activity/Vol] 9 U/L 0 - 31 U/L [facility] Anion gap [Moles/Vol] 8 mmol/L 5 - 15 mmol/L [facility] AST [Catalytic activity/Vol] 13 U/L 0 - 41 U/L [facility] Bilirubin [Mass/Vol] 0.4 mg/dL 0.3 - 1 .2 mg/dL [facility] Calcium [Mass/Vol] 8.4 mg/dL Low 8.5 - 10. 5 mg/dL [facility] Chloride [Moles/Vol] 101 mmol/L 98 - 10 9 mmol/L [facility] CO2 [Moles/Vol] 28 mmol/L 22 - 32 mmol/L [facility] Creatinine [Mass/Vol] 2.63 mg/dL High 0.40 - 1.00 mg/dL [facility] Comment on above: METHOD TRACEABLE TO [facility] STANDARD eGFR (CKD-EPI)non-race dependent 20 Low - PINF [facility] Comment on above: Reported eGFR is based on the CKD-EPI 2021 equation that does not use a race coefficient. Glucose [Mass/Vol] 107 mg/dL High 65 - 99 mg/dL [facility] Interpretation and review of laboratory results Abnormal [facility] Potassium [Moles/Vol] 3.2 mmol/L Low 3.5 - 5.0 mmol/L [facility] Protein [Mass/Vol] 5.4 g/dL Low 6.0 - 8.0 g/dL [facility] Sodium [Moles/Vol] 137 mmol/L 134 - 146 mmol/L [facility] Urea nitrogen [Mass/Vol] 23 mg/dL 5 - 23 mg/dL [facility] D-Dimeron 10-16-2023 Fibrin D-dimer DDU (PPP) [Mass/Vol] 499 High NINF [facility] Comment on above: Results >=255ng/mL DDU: Results [...] Interpretation and review of laboratory results Abnormal [facility] D DIMER 499 ng/mL DDU High <255 [facility] Comment on above: Result [...] D-Dimer level. Performed By: #### C VIRGILIO, [facility], 02217-3, 35628-0, 72232-2 #### [facility] ([id number]) [address] [place] [address], [place] [address] Free light chainson 10-16-19 Immunoglobulin light chains.kappa.free (S) [Mass/Vol] 3.52 mg/dL High 0.33 - 1.94 mg/dL [facility] Immunoglobulin light chains.kappa.free/Immuno globulin light chains.lambda (S) [Mass ratio] 0.94 0.26 - 1.65 [facility] Immunoglobulin light chains.lambda [Mass/Vol] 3.75 mg/dL High 0.57 - 2.63 mg/dL [facility] Interpretation and review of laboratory results Abnormal [facility] HGB A1C (GLYCO-HGB)on 2023 Glucose [Mass/Vol] 111 mg/dL Normal [facility] Comment on above: Performed By: #### MARIO Gale BCA, 46291-2, 63112-0, 44216-8 #### [facility] ([id number]) [address] [place] [address] 58885 HbA1c (Bld) [Mass fraction] 5.5 % Normal 4.4-5.6 [facility] Comment on above: Result Comment: NOTE ADA Guidelines Result HgbA1c Normal : less than 5.7 % Prediabetes : 5.7 % to 6.4 % Diabetes : > 6.4 % Use with caution in patients with abnormal hemoglobin variants as the half-life of red blood cells and in vivo glycation rates are affected. Performed By: #### MARIO Gale BCA, 63357-9, 15589-1, 62478-6 #### [facility] ([id number]) [address] [place] [address] 20191 Hemoglobin A1con 10-16-2023 Average glucose Estimated from glycated hemoglobin (Bld) [Mass/Vol] 111 mg/dL [facility] HbA1c (Bld) [Mass fraction] 5.5 % 4.4 - 5.6 % [facility] Comment on above: NOTE ADA Guidelines Result HgbA1c Normal : less than 5.7 % Prediabetes : 5.7 % to 6.4 % Diabetes : > 6.4 % Use with caution in patients with abnormal hemoglobin variants as the half-life of red blood cells and in vivo glycation rates are affected. [facility] MAGNESIUMon 10-16-2023 Magnesium [Mass/Vol] 2.1 mg/dL Normal 1.8-2.6 [facility] Comment on above: Performed By: #### C MARIO POOLE, , 10886-8, 66362-0 #### [facility] ([id number]) [address] [place] [address] 51511 MICROALBUMIN - ALBUMIN:CREAT ININE URINE RATIOon 10-16-2023 ALB/CREAT RATIO 3392.0 mg/g creat High 0.0-30.0 Pr [facility] Comment on above: Performed By: #### C MARIO POOLE, , 19878-5, 21346-4 #### [facility] ([id number]) [address] [place] [address] 52784 Albumin DL <= 20 mg/L (U) [Mass/Vol] 88.6 mg/dL High 0.0-1.9 [facility] Comment on above: Performed By: #### MARIO Gale BCA, , 70037-5, 72058-8 #### [facility] ([id number]) [address] [place] [address] 92850 URINE CREAT 26.12 mg/dL Normal [facility] Comment on above: Performed By: #### MARIO Gale BCA, , 65372-6, 62248-1 #### [facility] ([id number]) [address] [place] [address] 49866 Magnesiumon 10-16-2023 Magnesium [Mass/Vol] 2.1 mg/dL 1.8 - 2 .6 mg/dL [facility] Microalbumin - Albumin: Crea tinine Urine Ratioon 10-16-2023 Albumin DL <= 20 mg/L (U) [Mass/Vol] 88.6 mg/dL High 0.0 - 1.9 mg/dL [facility] Albumin/Creatinine DL <= 1.0 mg/L (U) [Ratio] 3392.0 High [facility] Creatinine (U) [Mass/Vol] 26.12 mg/dL [facility] Interpretation and review of laboratory results Abnormal [facility] No Panel Informationon 10-15 [facility] Nuclear Ab IA Ql (S)on 10-15 [facility] PHOSPHORUSon 10-16-2023 Phosphate [Mass/Vol] 4.3 mg/dL Normal 2.4-4.9 [facility] Comment on above: Performed By: #### C MARIO POOLE, 93021-0, 22586-5, 19046-0 #### [facility] ([id number]) [address] [place] [address] 84608 POCT Ionized Calciumon 10-15 Calcium.ionized (Bld) [Moles/Vol] 4.6 mg/dL 4.5 - 5.3 mg/dL [facility] POTASSIUMon 10-16-2023 Potassium [Moles/Vol] 4.8 mmol/L Normal 3.5-5.0 [facility] Comment on above: Result Comment: SPEC IMEN HEMOLYZED, RESULTS INCREASED Performed By: #### C MARIO POOLE, 49972-7, 54261-7, 89673-0 #### [facility] ([id number]) [address] [place] [address] 57923 PROTEIN CREAT RATIOon 2023 RANDOM URINE PROTEIN 1270 mg/L High <120 [facility] Comment on above: Performed By: #### C MARIO POOLE, 09401-3, 65986-8, 45200-9 #### [facility] ([id number]) [address] [place] [address] 95252 U/PRO/LABORER HOISTING RATIO CALC 4.72 High <0.2 [facility] Comment on above: Result Comment: Neph rotic Syndrome is associated with ratios >3.5 Performed By: #### C BCA, BMP, 15467-2, 00592-4, 28318-1 #### [facility] ([id number]) [address] [place] [address] URINE CREATININE,RDM 26.92 mg/dL Normal [facility] Comment on above: Performed By: #### C BCA, BMP, 81760-5, 98767-8, 75023-9 #### [facility] ([id number]) [address] [facility], [place] [address] Phosphate [Mass/Vol]on 10-15 [facility] Phosphoruson 10-16-2023 Phosphate [Mass/Vol] 4.3 mg/dL 2.4 - 4 .9 mg/dL [facility] Potassiumon 10-16-2023 Potassium [Moles/Vol] 4.8 mmol/L 3.5 - 5.0 mmol/L [facility] Comment on above: SPECIMEN HEMOLYZED, RESULTS INCREASED Potassium [Moles/Vol]on 09-23 [facility] Protein creat ratioon 2023 Creatinine (U) [Mass/Vol] 26.92 mg/dL [facility] Interpretation and review of laboratory results Abnormal [facility] Protein (U) [Mass/Vol] 1270 mg/L High NINF - 120 mg/L [facility] Protein/Creatinine (U) [Ratio] 4.72 High NINF - 0.2 [facility] Comment on above: Nephrotic Syndrome i s associated with ratios >3.5 [facility] Protein electrophoresis, ser umon 10-16-2023 Albumin [Mass/Vol] 2.5 g/dL Low 3.4 - 5.3 g/dL [facility] Alpha 1 globulin Elph [Mass/Vol] 0.4 g/dL 0.1 - 0.4 g/dL [facility] Alpha 2 globulin Elph [Mass/Vol] 0.9 g/dL 0.4 - 1.1 g/dL [facility] Beta globulin Elph [Mass/Vol] 0.5 g/dL 0.5 - 1.2 g/dL [facility] Gamma globulin Elph [Mass/Vol] 0.4 g/dL Low 0.5 - 1.6 g/dL [facility] Interpretation and review of laboratory results Abnormal [facility] Pathologist interpretation (Bld) [Interp] Unremarkable protein distribution, no monoclonal bands. [facility] Protein [Mass/Vol] 4.7 g/dL Low 6.0 - 8.0 g/dL [facility] URINALYSISon 10-16-2023 Bilirubin Ql (U) Negative Normal NEG [facility] Comment on above: Performed By: #### C VIRGILIO, BMP, 99004-4, 80118-4, 70269-8 #### [facility] ([id number]) [address] [place] [address] 43087 BLOOD/HGB Large Abnormal NEG [facility] Comment on above: Performed By: #### Shahla POOLE, BMP, 23166-4, 55467-1, 71690-0 #### [facility] ([id number]) [address] [place] [address] 31740 Color (U) YELLOW Normal YELLOW [facility] Comment on above: Performed By: #### Shahla BCA, BMP, 33471-5, 19087-5, 61773-2 #### [facility] ([id number]) [address] [place] [address] 24718 Glucose Ql (U) Negative Normal NEG [facility] Comment on above: Performed By: #### Shahla BCA, BMP, 73246-3, 88835-7, 35440-5 #### [facility] ([id number]) [address] [place] [address] 34992 Ketones Ql (U) Negative Normal NEG [facility] Comment on above: Performed By: #### Shahla BCA, BMP, 78672-5, 43810-2, 48359-4 #### [facility] ([id number]) [address] [place] [address] Leukocyte esterase Test strip Ql (U) Negative Normal NEG [facility] Comment on above: Performed By: #### C VIRGILIO, BMP, 96932-4, 08456-5, 44733-7 #### [facility] ([id number]) [address] [place] [address] 67799 Nitrite Ql (U) Negative Normal NEG [facility] Comment on above: Performed By: #### C VIRGILIO, BMP, 91898-7, 88108-3, 62509-8 #### [facility] ([id number]) [address] [place] [address] 21040 pH (U) 6.0 [pH] Normal 5.0-8.5 [facility] Comment on above: Performed By: #### C VIRGILIO, BMP, 19655-1, 50647-1, 35040-2 #### [facility] ([id number]) [address] [place] [address] 47962 Protein Ql (U) 100 mg/dL Abnormal NEG [facility] Comment on above: Performed By: #### C VIRGILIO, BMP, 22290-6, 38969-0, 52772-1 #### [facility] ([id number]) [address] [place] [address] 52191 R.B.CELLS 80 /hpf High 0-5 [facility] Comment on above: Performed By: #### C VIRGILIO, BMP, 90799-6, 54765-9, 46461-3 #### [facility] ([id number]) [address] [place] [address] 14133 Specific gravity (U) [Rel density] 1.015 Normal 1.003-1.[address] [place] [address] Comment on above: Performed By: #### C VIRGILIO, BMP, 36573-5, 00363-8, 57774-8 #### [facility] ([id number]) [address] [place] [address] 82140 SQUAMOUS EPITHELIUM 2 /hpf Normal 0-5 [facility] Comment on above: Performed By: #### C VRIGILIO, MARIO, , 86731-4, 08224-7 #### [facility] ([id number]) [address] [place] [address] 03142 TURBIDITY CLEAR Normal CLEAR [facility] Comment on above: Performed By: #### C VIRGILIO, BMP, , 76711-4, 28544-7 #### [facility] ([id number]) [address] [place] [address] 36793 Urobilinogen Qn (U) 0.2 {Micaela'U}/dL Normal <1.1 [facility] Comment on above: Performed By: #### C VIRGILIO, MARIO, , 99444-6, 04721-3 #### [facility] ([id number]) [address] [place] [address] 22392 W.B.CELLS 5 /hpf Normal 0-5 [facility] Comment on above: Performed By: #### C MARIO POOLE, , 78795-3, 91934-4 #### [facility] ([id number]) [address] [place] [address] 02529 URINE PROTEIN ELECTROPHORESI Son 10-16-2023 UPREL INTERP SEE SEPARATE REPORT Normal [facility] URINE VOLUME AND TIMEon 09-23 TIME 24 h Normal [facility] Comment on above: Performed By: #### U CR, UPRO ####[facility] ([id number])[address] [facility], [address], [place] [address] TOTAL VOLUME 4400 mL Normal [facility] Comment on above: Performed By: #### U CR, UPRO ####[facility] ([id number]) [facility], [address] [place] [address] 91545 US RETROPERITONEAL COMPLETEo n 10-16-2023 US RETROPERITONEAL [...] MD on 10/16/2023 9:42 AM [facility] US Retroperitoneumon 024 US RETROPERITONEAL COMPLETE: [...] Maksim Unger MD on 10/16/2023 9:42 AM [facility] - 10/16/2023 US RETROPERITONEAL [...] with measurements as above. Finalized by Maksim Unegr MD on 10/16/2023 9:42 AM [facility] Radiology Study observation (narrative) [facility] US RetroperitoneumOrdered By : Maksim Unger on 10-16-2023 [facility] Work Phone: US.doppler Lower extremity v ein - bilateralon 10-16-2023 Radiology Study observation (narrative) [facility] Urinalysison 10-16-2023 Bilirubin Ql (U) Negative Negative^N egative [facility] Color (U) YELLOW YELLOW^YEL LOW [facility] Epithelial cells Auto (Urine sed) [#/Area] 2 [facility] Glucose (U) [Mass/Vol] Negative Negat marva^N egative mg/dL [facility] Hemoglobin Auto test strip Ql (U) Large Abnormal Negative^N egative [facility] Interpretation and review of laboratory results Abnormal [facility] Ketones (U) [Mass/Vol] Negative Negat marva^N egative mg/dL [facility] Leukocyte esterase Auto test strip Ql (U) Negative Negative^N egative [facility] Nitrite Auto test strip Ql (U) Negative Negative^N egative [facility] pH (U) 6.0 [pH] 5.0 - 8.5 [facility] Protein (U) [Mass/Vol] 100 mg/dL Abnormal Negat marva^N egative [facility] RBC Auto (Urine sed) [#/Area] 80 High [facility] Specific gravity Refractometry automated (U) [Rel density] 1.015 1.003 - 1.035 [facility] Turbidity Ql (U) CLEAR CLEAR^NUNU R [facility] Urobilinogen Qn (U) 0.2 NINF [facility] WBC Auto (Urine sed) [#/Area] 5 [facility] Basement membrane IgG Qn (S) on 10-15-2023 Glomerular Base Memb IgG <0.2 Normal <1. 0 (Negative) [facility] Comment on above: Result Comment: NOTE Test Performed by: [facility] [address] [place] [address] Biogeographer: Ledy Son Ph.D.; CLIA# [id number] Performed By: #### C VIRGILIO BMP, 67113-7, 94986-9, 63605-2 #### [facility] ([id number]) [address] [place] [address] 21012 CBC AND AUTO DIFFon 10-15-19 24 ABSOLUTE BASOPHIL 0.1 X10E9/L Normal 0.0-0.2 [facility] Comment on above: Performed By: #### C VIRGILIO CMP, #### [facility] ([id number]) [address] [place] [address] 85811 ABSOLUTE NEUTROPHIL 6.8 X10E9/L High 1.5-6.6 [facility] Comment on above: Performed By: #### C VIRGILIO CMP, 41892-2 #### [facility] ([id number]) [address] [place] [address] 61032 Basophils/100 WBC (Bld) 0.7 % Normal P [facility] Comment on above: Performed By: #### Shahla POOLE CMP, 08934-8 #### [facility] ([id number]) [address] [place] [address] 73737 Eosinophils (Bld) [#/Vol] 0.3 10*3/uL Normal 0.0-0.4 [facility] Comment on above: Performed By: #### Shahla POOLE CMP, 61883-5 #### [facility] ([id number]) [address] [place] [address] 57523 Eosinophils/100 WBC (Bld) 3.3 % Normal [facility] Comment on above: Performed By: #### Shahla POOLE CMP, 99329-9 #### [facility] ([id number]) [address] [place] [address] 19442 Erythrocyte distribution width (RBC) [Ratio] 14.6 % Normal 11.5-15.0 [facility] Comment on above: Performed By: #### Shahla POOLE CMP, #### [facility] ([id number]) [address] [place] [address] 56715 Hematocrit (Bld) [Volume fraction] 30.1 % Low 35-47 [facility] Comment on above: Performed By: #### Shahla POOLE CMP, #### [facility] ([id number]) [address] [place] [address] 23384 Hemoglobin (Bld) [Mass/Vol] 10.0 g/dL Low 11.7-15.5 [facility] Comment on above: Performed By: #### Shahla POOLE CMP, #### [facility] ([id number]) [address] [place] [address] 46487 Lymphocytes (Bld) [#/Vol] 2.4 10*3/uL Normal 1.0-3.5 [facility] Comment on above: Performed By: #### Shahla POOLE CMP, #### [facility] ([id number]) [address] [place] [address] 92402 Lymphocytes/100 WBC (Bld) 23.7 % Normal [facility] Comment on above: Performed By: #### Shahla POOLE CMP, #### [facility] ([id number]) [address] [place] [address] 63244 MCH (RBC) [Entitic mass] 27.7 pg Normal 27-34 [facility] Comment on above: Performed By: #### Shahla POOLE CMP, #### [facility] ([id number]) [address] [place] [address] 99423 MCHC (RBC) [Mass/Vol] 33.1 g/dL Normal 32-36 [facility] Comment on above: Performed By: #### Shahla POOLE CMP, #### [facility] ([id number]) [address] [place] [address] 19489 MCV (RBC) [Entitic vol] 84 fL Normal 80-100 [facility] Comment on above: Performed By: #### Shahla POOLE CMP, #### [facility] ([id number]) [address] [place] [address] 26964 Monocytes (Bld) [#/Vol] 0.6 10*3/uL Normal 0-0.9 [facility] Comment on above: Performed By: #### Shahla POOLE CMP, #### [facility] ([id number]) [address] [place] [address] 07724 Monocytes/100 WBC (Bld) 5.5 % Normal [facility] Comment on above: Performed By: #### Shahla POOLE CMP, 01816-9 #### [facility] ([id number]) [address] [place] [address] 42479 Neutrophils/100 WBC (Bld) 66.8 % Normal [facility] Comment on above: Performed By: #### Shahla POOLE CMP, 32713-4 #### [facility] ([id number]) [address] [place] [address] 00608 Platelet mean volume (Bld) [Entitic vol] 9.0 fL Normal 7-12 [facility] Comment on above: Performed By: #### Shahla POOLE [facility], 05599-3 #### [facility] ([id number]) [address] [place] [address] 29059 Platelets (Bld) [#/Vol] 312 10*3/uL Normal 150-450 [facility] Comment on above: Performed By: #### Shahla POOLE [facility], 53850-4 #### [facility] ([id number]) [address] [place] [address] 48190 RBC COUNT 3.59 X10E12/L Low 3.80-5.20 [facility] Comment on above: Performed By: #### Shahla POOLE [facility], 14976-0 #### [facility] ([id number]) [address] [place] [address] 49032 WBC (Bld) [#/Vol] 10.2 10*3/uL Normal 4.0-11.0 [facility] Comment on above: Performed By: #### Shahla POOLE CMP, 63131-8 #### [facility] ([id number]) [address] [place] [address] 40520 CBC auto differentialon 09-23 Basophils (Bld) [#/Vol] 0.1 10*3/uL [facility] Basophils/100 WBC (Bld) 0.7 % [facility] Eosinophils (Bld) [#/Vol] 0.3 10*3/uL [facility] Eosinophils/100 WBC (Bld) 3.3 % [facility] Erythrocyte distribution width (RBC) [Ratio] 14.6 % 11.5 - 15.0 % [facility] Hematocrit (Bld) [Volume fraction] 30.1 % Low 35 - 47 % [facility] Hemoglobin (Bld) [Mass/Vol] 10.0 g/dL Low 11.7 - 15.5 g/dL [facility] Interpretation and review of laboratory results Abnormal [facility] Lymphocytes (Bld) [#/Vol] 2.4 10*3/uL [facility] Lymphocytes/100 WBC (Bld) 23.7 % [facility] MCH (RBC) [Entitic mass] 27.7 pg 27 - 34 pg [facility] MCHC (RBC) [Mass/Vol] 33.1 g/dL 32 - 3 6 g/dL [facility] MCV (RBC) [Entitic vol] 84 fL 80 - 100 fL [facility] Monocytes (Bld) [#/Vol] 0.6 10*3/uL [facility] Monocytes/100 WBC (Bld) 5.5 % [facility] Neutrophils (Bld) [#/Vol] 6.8 10*3/uL High [facility] Neutrophils/100 WBC (Bld) 66.8 % [facility] Platelet mean volume (Bld) [Entitic vol] 9.0 fL 7 - 12 fL [facility] Platelets (Bld) [#/Vol] 312 10*3/uL [facility] RBC (Bld) [#/Vol] 3.59 10*6/uL Low [facility] WBC corrected for nucl RBC Auto (Bld) [#/Vol] 10.2 [facility] CK Totalon 10-15-2023 CK [Catalytic activity/Vol] 82 U/L 24 - 170 U/L [facility] CK [Catalytic activity/Vol]o n 10-15-2023 [facility] CPK 82 U/L Normal 24-170 [facility] Comment on above: Performed By: #### C VIRGILIO, MARIO, 91379-5, 59259-8, 46094-1 #### [facility] ([id number]) [address] [place] [address], [place] [address] COMPLEMENT PROFILEon 024 COMPLEMENT C3 113 mg/dL Normal 86-184 [facility] Comment on above: Performed By: #### C BCA, BMP, 94743-6, 02409-9, 11224-2 #### [facility] ([id number]) [address] [place] [address] 80512 COMPLEMENT C4 36 mg/dL Normal 16-47 [facility] Comment on above: Performed By: #### C BCA, BMP, , 78695-1, 59153-3 #### [facility] ([id number]) [address] [place] [address] 42937 COMPREHENSIVE METABOLIC PANE Phu 10-15-2023 Albumin [Mass/Vol] 2.8 g/dL Low 3.2-5.3 [facility] Comment on above: Performed By: #### C BCA, CMP, #### [facility] ([id number]) [address] [place] [address] 04126 ALP [Catalytic activity/Vol] 61 U/L Normal 39-130 [facility] Comment on above: Performed By: #### C BCA, CMP, 50530-4 #### [facility] ([id number]) [address] [place] [address] 03649 ALT [Catalytic activity/Vol] 10 U/L Normal 0-31 [facility] Comment on above: Performed By: #### C BCA, CMP, 00099-3 #### [facility] ([id number]) [address] [place] [address] 18420 Anion gap [Moles/Vol] 10 mmol/L Normal 5-15 [facility] Comment on above: Performed By: #### C BCA, CMP, 97665-0 #### [facility] ([id number]) [address] [place] [address] 55422 AST [Catalytic activity/Vol] 14 U/L Normal 0-41 [facility] Comment on above: Performed By: #### C VIRGILIO CMP, 70469-1 #### [facility] ([id number]) [address] [place] [address] 14039 Bilirubin [Mass/Vol] 0.4 mg/dL Normal 0.3-1.2 [facility] Comment on above: Performed By: #### C VIRGILIO, CMP, #### [facility] ([id number]) [address] [place] [address] 29499 Calcium [Mass/Vol] 8.4 mg/dL Low 8.5-10.5 [facility] Comment on above: Performed By: #### C VIRGILIO, [facility], 51610-2 #### [facility] ([id number]) [address] [place] [address] 03923 Chloride [Moles/Vol] 104 mmol/L Normal 98-109 [facility] Comment on above: Performed By: #### Shahla POOLE [facility], 63115-5 #### [facility] ([id number]) [address] [place] [address] 52200 CO2 [Moles/Vol] 26 mmol/L Normal 22-32 [facility] Comment on above: Performed By: #### Shahla POOLE [facility], 98492-7 #### [facility] ([id number]) [address] [place] [address] 65447 Creatinine [Mass/Vol] 2.56 mg/dL High 0.40-1.00 [facility] Comment on above: Result Comment: METH OD TRACEABLE TO IDMS STANDARD Performed By: #### C VIRGILIO, CMP, 20492-7 #### [facility] ([id number]) [address] [place] [address] 28842 GFR/1.73 sq M.predicted among non-blacks MDRD (S/P/Bld) [Vol rate/Area] 21 mL/min/{1.73_m2} Low >59 [facility] Comment on above: Result Comment: Reported eGFR is based on the CKD-EPI 2020 equation that does not use a race coefficient. Performed By: #### C EDEL POOLE, 74832-6 #### [facility] ([id number]) [address] [place] [address] 55751 Glucose [Mass/Vol] 103 mg/dL High 65-99 [facility] Comment on above: Performed By: #### C EDEL POOLE, 76187-6 #### [facility] ([id number]) [address] [place] [address] 52031 Potassium [Moles/Vol] 3.2 mmol/L Low 3.5-5.0 [facility] Comment on above: Performed By: #### C EDEL POOLE, #### [facility] ([id number]) [address] [place] [address] 49604 Protein [Mass/Vol] 5.6 g/dL Low 6.0-8.0 [facility] Comment on above: Performed By: #### C VIRGILIO [facility], 36139-3 #### [facility] ([id number]) [address] [place] [address] 50998 Sodium [Moles/Vol] 140 mmol/L Normal 134-146 [facility] Comment on above: Performed By: #### C VIRGILIO [facility], 21522-9 #### [facility] ([id number]) [address] [place] [address] 24717 Urea nitrogen [Mass/Vol] 20 mg/dL Normal 5-23 [facility] Comment on above: Performed By: #### C EDEL POOLE, 95325-3 #### [facility] ([id number]) [address] [place] [address] 70174 CRYOGLOBULIN WITH IDon 10-14 CRYOGLOBULIN, QUAL NEG 72HOUR Normal NEG 72Hour [facility] Comment on above: Result Comment: NOTE This test was developed and its performance characteristics determined by [facility]. It has not been cleared or approved by the [place] Food and Drug Administration. This test was performed in a CLIA certified laboratory and is intended for clinical purposes. Performed By: [facility] [address] [place] [address] University Tutor: Hank Armstrong MD, PhD CLIA Number: [id number] Performed By: #### 8 9579-7 #### [facility] ([id number]) [address] [place] [address], [place] [address] Cobalamin (Vitamin B12) [Mas s/Vol]on 10-15-2023 Interpretation and review of laboratory results Abnormal [facility] Complement profile (C3 AND C 4)on 10-15-2023 Complement C3 [Mass/Vol] 113 mg/dL 86 - 184 mg/dL [facility] Complement C4 [Mass/Vol] 36 mg/dL 16 - 47 mg/dL [facility] Comprehensive metabolic pane phu 10-15-2023 Albumin [Mass/Vol] 2.8 g/dL Low 3.2 - 5.3 g/dL [facility] ALP [Catalytic activity/Vol] 61 U/L 39 - 130 U/L [facility] ALT No additional P-5'-P [Catalytic activity/Vol] 10 U/L 0 - 31 U/L [facility] Anion gap [Moles/Vol] 10 mmol/L 5 - 15 mmol/L [facility] AST [Catalytic activity/Vol] 14 U/L 0 - 41 U/L [facility] Bilirubin [Mass/Vol] 0.4 mg/dL 0.3 - 1 .2 mg/dL [facility] Calcium [Mass/Vol] 8.4 mg/dL Low 8.5 - 10. 5 mg/dL [facility] Chloride [Moles/Vol] 104 mmol/L 98 - 10 9 mmol/L [facility] CO2 [Moles/Vol] 26 mmol/L 22 - 32 mmol/L [facility] Creatinine [Mass/Vol] 2.56 mg/dL High 0.40 - 1.00 mg/dL [facility] Comment on above: METHOD TRACEABLE TO [facility] STANDARD eGFR (CKD-EPI)non-race dependent 21 Low - PINF [facility] Comment on above: Reported eGFR is based on the CKD-EPI 2020 equation that does not use a race coefficient. Glucose [Mass/Vol] 103 mg/dL High 65 - 99 mg/dL [facility] Potassium [Moles/Vol] 3.2 mmol/L Low 3.5 - 5.0 mmol/L [facility] Protein [Mass/Vol] 5.6 g/dL Low 6.0 - 8.0 g/dL [facility] Sodium [Moles/Vol] 140 mmol/L 134 - 146 mmol/L [facility] Urea nitrogen [Mass/Vol] 20 mg/dL 5 - 23 mg/dL [facility] Creatinine (U) [Mass/Vol]on 10-15-2023 [facility] URINE CREATININE,RDM 102.61 mg/dL Normal Pr [facility] Comment on above: Performed By: #### C MARIO POOLE, , 54598-5, 80970-9 #### [facility] ([id number]) [address] [place] [address] 41396 FERRITINon 10-15-2023 Ferritin [Mass/Vol] 45 ng/mL Normal 11-307 [facility] Comment on above: Performed By: #### C MARIO POOLE, 76393-5, 67650-5, 64743-3 #### [facility] ([id number]) [address] [place] [address] 48182 FREE LIGHT CHAINSon 10-15-19 24 FREE ANDREA/LAMBD RATIO 0.94 Normal 0.26-1.65 [facility] Comment on above: Performed By: #### C MARIO POOLE, , 03123-3, 23847-7 #### [facility] ([id number]) [address] [place] [address] 39350 FREE KAPPA LT CHAINS 3.52 mg/dL High 0.33-1.94 [facility] Comment on above: Performed By: #### C MARIO POOLE, , 03897-6, 39818-8 #### [facility] ([id number]) [address] [place] [address] 04106 FREE LAMBDA LT CHAINS 3.75 mg/dL High 0.57-2.63 [facility] Comment on above: Performed By: #### C MARIO POOLE, , 22160-9, 33105-9 #### [facility] ([id number]) [address] [place] [address] 02663 Ferritinon 10-15-2023 Ferritin [Mass/Vol] 45 ng/mL 11 - 307 ng/mL [facility] Ferritin [Mass/Vol]on 2023 [facility] Folateon 10-15-2023 Folate [Mass/Vol] 10.3 ng/mL 5.8 - PINF ng/mL [facility] Comment on above: NEW REFERENCE RANGE Folate [Mass/Vol]on 10-15-19 24 [facility] FOLIC ACID 10.3 ng/mL Normal >5.8 [facility] Comment on above: Result Comment: NEW REFERENCE RANGE Performed By: #### C MARIO POOLE, , 81990-5, 74390-8 #### [facility] ([id number]) [address] [place] [address] 52551 HBV surface Ab IA Qnon 10-14 Anti HBs quant. <8.00 Normal [facility] Comment on above: Result Comment: Vacc inated: >=12mIU/mL, Positive (Immune) Unvaccinated: <8mIU/mL, Negative (Not Immune) 8-11.99 mIU/mL: Indeterminate, (Considered Not Immune) Performed By: #### C MARIO POOLE, , 45545-5, 01406-1 #### [facility] ([id number]) [address] [place] [address] 78979 HBV surface Ag IA Qlon 10-14 HEPATITIS B SURF AG Negative Normal NEG [facility] Comment on above: Performed By: #### C MARIO POOLE, 07667-1, 34699-1, 54399-1 #### [facility] ([id number]) [address] [place] [address] HCV Ab IA Qlon 10-15-2023 ANTI HCV W/PCR REFLX Non-Reactive Normal NRCT Pr [facility] Comment on above: Result Comment: If recent infection suspected, recommend repeat testing (>2 months). Urbdnh-on-tvvhil ratio is <0.80. Performed By: #### C VIRGILIO, MARIO, 91129-8, 55880-1, 48087-9 #### [facility] ([id number]) [address] [place] [address] HIV 1&2 AB/AG Screen (P24 AG )on 10-15-2023 HIV 1+2 Ab+HIV1 p24 Ag IA Ql Non-Reactive Non-Reacti ve^Non-[place] ctive [facility] Comment on above: This information has been [...] and 2 Ab/Ag Screen Non-Reactive Normal NRCT [facility] Comment on above: Result [...] Performed By: #### C MARIO POOLE, , 31636-0, 63714-3 #### [facility] ([id number]) [address] [place] [address] 76891 Hepatitis B Surface Antibody Quantitationon 10-15-2023 HBV surface Ab IA Qn mIU/mL [facility] Comment on above: Vaccinated: >=12mIU/ mL, Positive (Immune) Unvaccinated: <8mIU/mL, Negative (Not Immune) 8-11.99 mIU/mL: Indeterminate, (Considered Not Immune) Hepatitis B surface antigeno n 10-15-2023 HBV surface Ag IA Ql Negative Negativ e^N egative [facility] Hepatitis C(HCV) Ab w/ Refle x to PCRon 10-15-2023 HCV Ab IA Ql Non-Reactive Non-Reacti ve^Non-[place] ctive [facility] Comment on above: If recent infection suspected, recommend repeat testing (>2 months). Qnfyhp-tk-cbhetg ratio is <0.80. IRON PROFILEon 10-15-2023 Iron [Mass/Vol] 30 ug/dL Low 50-170 [facility] Comment on above: Performed By: #### C MARIO POOLE, , 96218-1, 98989-8 #### [facility] ([id number]) [address] [place] [address] 83437 IRON BINDING 218 ug/dL Low 250-425 [facility] Comment on above: Performed By: #### C MARIO POOLE, , 50200-4, 35920-0 #### [facility] ([id number]) [address] [place] [address] 38226 IRON SATURATION 14 % SATURATION Low 15-50 [facility] Comment on above: Performed By: #### C MARIO POOLE, 88873-5, 35071-4, 69653-3 #### [facility] ([id number]) [address] [place] [address] 32306 Iron and TIBCon 10-15-2023 Interpretation and review of laboratory results Abnormal [facility] Iron [Mass/Vol] 30 ug/dL Low 50 - 170 ug/dL [facility] Iron binding capacity [Mass/Vol] 218 ug/dL Low 250 - 425 ug/dL [facility] Iron saturation [Mass fraction] 14 Low [facility] MAGNESIUMon 10-15-2023 Magnesium [Mass/Vol] 1.7 mg/dL Low 1.8-2.6 [facility] Comment on above: Performed By: #### C VIRGILIO, CMP, 66574-6 #### [facility] ([id number]) [address] [place] [address] 18566 Magnesiumon 10-15-2023 Magnesium [Mass/Vol] 1.7 mg/dL Low 1.8 - 2 .6 mg/dL [facility] Myeloperoxidase IgG Qn (S)on 10-15-2023 Myeloperoxidase IgG >8.0 High <0.4 (Negative) [facility] Comment on above: Result Comment: NOTE Interpretation: Positive (>=1.0) Test Performed by: [place] [address] Biogeographer: Ledy Son Ph.D.; CLIA# [id number] Performed By: #### C VIRGILIO, BMP, 36465-2, 06526-1, 22525-3 #### [facility] ([id number]) [address] [place] [address] 73168 No Panel Informationon 10-14 [facility] Interpretation and review of laboratory results Abnormal [facility] Nuclear Ab IA Ql (S)on 10-14 SAUL Screen w/reflex Negative Normal NEG [facility] Comment on above: Result Comment: Testing performed using multiplex flow immunoassay. Eleven different antigens associated with systemic autoimmune diseases (dsDNA,Sm,Sm/SECURITY ORDERLY,SECURITY ORDERLY,Chromatin, SSA,SSB,Yoly-1,Scl70,Ribo P,Centromere B) are included in this screening test. Performed By: #### C MARIO POOLE, 10894-9, 46064-0, 72436-5 #### [facility] ([id number]) [address] [place] [address] 32270 POTASSIUMon 10-15-2023 Potassium [Moles/Vol] 3.5 mmol/L Normal 3.5-5.0 [facility] Comment on above: Performed By: #### C MARIO POOLE, 30076-4, 58229-0, 15710-7 #### [facility] ([id number]) [address] [place] [address] 49896 Potassiumon 10-15-2023 Potassium [Moles/Vol] 3.5 mmol/L 3.5 - 5.0 mmol/L [facility] Potassium [Moles/Vol]on 09-23 [facility] Proteinase 3 IgG IA Qnon Proteinase 3 IgG 0.2 U Normal <0.4 (Negative) [facility] Comment on above: Result Comment: NOTE Test Performed by: [facility] [address] [place] [address] Biogeographer: Ledy Son Ph.D.; CLIA# [id number] Performed By: #### C MARIO POOLE, 29110-7, 81587-7, 79570-4 #### [facility] ([id number]) [address] [place] [address] 21630 Rheumatoid factoron 10-15-19 24 Rheumatoid factor Nephelometry Qn (S) 76 High NINF [facility] Rheumatoid factor Nephelomet ry Qn (S)on 10-15-2023 Interpretation and review of laboratory results Abnormal [facility] RHEUMATOID FACTOR 76 IU/mL High <20 [facility] Comment on above: Performed By: #### C BCA, BMP, , 58697-0, 51770-2 #### [facility] ([id number]) [address] [place] [address] 95209 SERUM PROTEIN ELECTROPHORESI Son 10-15-2023 Albumin [Mass/Vol] 2.5 g/dL Low 3.4-5.3 [facility] Comment on above: Performed By: #### C BCA, BMP, , 30055-5, 24808-0 #### [facility] ([id number]) [address] [place] [address] 74434 ALPHA 1 GLOBULIN 0.4 g/dL Normal 0.1-0.4 [facility] Comment on above: Performed By: #### C BCA, BMP, , 08452-2, 97948-2 #### [facility] ([id number]) [address] [place] [address] 31456 ALPHA 2 GLOBULIN 0.9 g/dL Normal 0.4-1.1 [facility] Comment on above: Performed By: #### C BCA, BMP, , 15192-8, 71291-7 #### [facility] ([id number]) [address] [place] [address] 15227 BETA GLOBULIN 0.5 g/dL Normal 0.5-1.2 [facility] Comment on above: Performed By: #### C BCA, BMP, , 53662-9, 58122-8 #### [facility] ([id number]) [address] [place] [address] 11636 GAMMA GLOBULIN 0.4 g/dL Low 0.5-1.6 [facility] Comment on above: Performed By: #### C BCA, BMP, , 05522-9, 50822-0 #### [facility] ([id number]) [address] [place] [address] 71690 PROT. ELECTROPHORESIS INTERP Unremarkable protein distribution, no monoclonal bands. Normal [facility] Comment on above: Performed By: #### C MARIO POOLE, , 00998-6, 29453-5 #### [facility] ([id number]) [address] [facility], [place] [address] Protein [Mass/Vol] 4.7 g/dL Low 6.0-8.0 [facility] Comment on above: Performed By: #### C VIRGILIO, BMP, , 22827-5, 96012-7 #### [facility] ([id number]) [address] [place] [address], [place] [address] Sodium (U) [Moles/Vol]on [facility] Sodium, urine, randomon 09-23 Sodium (U) [Moles/Vol] 86 mmol/L Pr [facility] Troponin I, High Sensitivity 1 Houron 10-15-2023 Troponin I.cardiac High sensitivity method [Mass/Vol] 39 ng/L High NINF - 16 ng/L [facility] Comment on above: Elevations of hs-Troponin may be due to causes other than myocardial ischemia. Recommend serial hs-Troponin testing be performed. For the initial evaluation and management of chest pain patients, refer to the algorithms linked below. Emergency Patient: [email or web address] Inpatient: [email or web address] Troponin I.cardiac High sens itivity method [Mass/Vol]on 10-15-2023 Interpretation and review of laboratory results Abnormal [facility] URINALYSISon 10-15-2023 Bilirubin Ql (U) Negative Normal NEG [facility] Comment on above: Performed By: #### C VIRGILIO, BMP, , 33986-5, 68390-3 #### [facility] ([id number]) [address] [place] [address] [place] [address] BLOOD/HGB Large Abnormal NEG [facility] Comment on above: Performed By: #### C BCA, BMP, 85670-5, 89020-5, 98177-3 #### [facility] ([id number]) [address] [place] [address] [place] [address] Color (U) YELLOW Normal YELLOW [facility] Comment on above: Performed By: #### C BCA, BMP, 49159-6, 19693-9, 46016-5 #### [facility] ([id number]) [address] [place] [address] [place] [address] Glucose Ql (U) Negative Normal NEG [facility] Comment on above: Performed By: #### C BCA, BMP, 09719-6, 90002-5, 52249-7 #### [facility] ([id number]) [address] [place] [address] [place] [address] Ketones Ql (U) Negative Normal NEG [facility] Comment on above: Performed By: #### C BCA, BMP, 59277-4, 33409-6, 08436-6 #### [facility] ([id number]) [address] [place] [address] [place] [address] Leukocyte esterase Test strip Ql (U) Negative Normal NEG [facility] Comment on above: Performed By: #### C BCA, BMP, 46789-0, 87782-2, 32758-6 #### [facility] ([id number]) [address] [place] [address] 07439 Nitrite Ql (U) Negative Normal NEG [facility] Comment on above: Performed By: #### C BCA, BMP, 88711-7, 54579-3, 93951-1 #### [facility] ([id number]) [address] [place] [address], [place] [address] pH (U) 6.0 [pH] Normal 5.0-8.5 [facility] Comment on above: Performed By: #### C VIRGILIO, BMP, 48966-4, 10523-8, 12121-4 #### [facility] ([id number]) [address] [place] [address] 94577 Protein Ql (U) >300 Abnormal NEG [facility] Comment on above: Performed By: #### C VIRGILIO, BMP, 05826-8, 49899-4, 62091-1 #### [facility] ([id number]) [address] [place] [address] 93246 R.B.CELLS 30 /hpf High 0-5 [facility] Comment on above: Performed By: #### C VIRGILIO, BMP, 42752-7, 27929-5, 05848-4 #### [facility] ([id number]) [address] [place] [address] 82713 Specific gravity (U) [Rel density] 1.025 Normal 1.003-1.[address] [place] [address] Comment on above: Performed By: #### C VIRGILIO, BMP, 81405-0, 35732-7, 09904-9 #### [facility] ([id number]) [address] [place] [address] 20473 SQUAMOUS EPITHELIUM 6 /hpf High 0-5 [facility] Comment on above: Performed By: #### C VIRGILIO, BMP, 24195-5, 61355-7, 31831-3 #### [facility] ([id number]) [address] [place] [address] 21915 TURBIDITY CLEAR Normal CLEAR [facility] Comment on above: Performed By: #### C VIRGILIO, BMP, 57809-9, 59187-4, 99204-8 #### [facility] ([id number]) [address] [place] [address], [place] [address] Urobilinogen Qn (U) 0.2 {Micaela'U}/dL Normal <1.1 [facility] Comment on above: Performed By: #### C MARIO POOLE, 15774-4, 64884-7, 46471-6 #### [facility] ([id number]) [address] [place] [address] 62397 W.B.CELLS 10 /hpf High 0-5 [facility] Comment on above: Performed By: #### C VIRGILIO, MARIO, 95201-1, 98217-7, 09124-8 #### [facility] ([id number]) [address] [place] [address] 83164 URINE SODIUM,RANDOMon 2023 Sodium (U) [Moles/Vol] 86 mmol/L [facility] Comment on above: Performed By: #### C VIRGILIO, MARIO, , 49661-9, 90785-8 #### [facility] ([id number]) [address] [place] [address] 22492 Urinalysison 10-15-2023 Bilirubin Ql (U) Negative Negative^N [...] Abnormal Negat marva^N egative mg/dL [facility] RBC Auto (Urine sed) [#/Area] 30 High [facility] Specific gravity Refractometry automated (U) [Rel density] 1.025 1.003 - 1.035 [facility] Turbidity Ql (U) CLEAR CLEAR^NUNU R [facility] Urobilinogen Qn (U) 0.2 NINF [facility] WBC Auto (Urine sed) [#/Area] 10 High [facility] Urine Creatinine,randomon Creatinine (U) [Mass/Vol] 102.61 mg/dL [facility] VITAMIN B12on 10-15-2023 Cobalamin (Vitamin B12) [Mass/Vol] 159 pg/mL Low 180-914 [facility] Comment on above: Performed By: #### C VIRGILIO BMP, 43629-2, 00425-3, 07645-2 #### [facility] ([id number]) [address] [place] [address] 09387 Vitamin B12on 10-15-2023 Cobalamin (Vitamin B12) [Mass/Vol] 159 pg/mL Low 180 - 914 pg/mL [facility] BASIC METABOLIC PANLon 10-13 Anion gap [Moles/Vol] 5 mmol/L Normal 5-15 [facility] Comment on above: Performed By: #### C VIRGILIO BMP, , 03008-3, 34968-8 #### [facility] ([id number]) [address] [place] [address] 93562 Calcium [Mass/Vol] 8.1 mg/dL Low 8.5-10.5 [facility] Comment on above: Performed By: #### C BCA BMP, , 05506-3, 75611-3 #### [facility] ([id number]) [address] [place] [address] 97820 Chloride [Moles/Vol] 107 mmol/L Normal 98-109 [facility] Comment on above: Performed By: #### C VIRGILIO, BMP, , 79861-6, 88719-3 #### [facility] ([id number]) [address] [place] [address] 19110 CO2 [Moles/Vol] 27 mmol/L Normal 22-32 [facility] Comment on above: Performed By: #### C BCA, BMP, , 23632-1, 69570-1 #### [facility] ([id number]) [address] [place] [address] 24518 Creatinine [Mass/Vol] 2.56 mg/dL High 0.40-1.00 [facility] Comment on above: Result Comment: METH OD TRACEABLE TO IDMS STANDARD Performed By: #### C VIRGILIO, BMP, , 33394-4, 38948-7 #### [facility] ([id number]) [address] [place] [address] 17669 GFR/1.73 sq M.predicted among non-blacks MDRD (S/P/Bld) [Vol rate/Area] 21 mL/min/{1.73_m2} Low >59 [facility] Comment on above: Result Comment: Reported eGFR is based on the CKD-EPI 2020 equation that does not use a race coefficient. Performed By: #### C VIRGILIO, BMP, , 29011-9, 90352-3 #### [facility] ([id number]) [address] [place] [address] 44036 Glucose [Mass/Vol] 95 mg/dL Normal 65-99 [facility] Comment on above: Performed By: #### C BCA, BMP, , 41247-9, 13372-9 #### [facility] ([id number]) [address] [place] [address] 97802 Potassium [Moles/Vol] 3.1 mmol/L Low 3.5-5.0 [facility] Comment on above: Performed By: #### C BCA, BMP, 95672-8, 83579-1, 61208-0 #### [facility] ([id number]) [address] [place] [address] 50261 Sodium [Moles/Vol] 139 mmol/L Normal 134-146 [facility] Comment on above: Performed By: #### C BCA, BMP, 76965-7, 67132-4, 33996-3 #### [facility] ([id number]) [address] [place] [address] 40670 Urea nitrogen [Mass/Vol] 19 mg/dL Normal 5-23 [facility] Comment on above: Performed By: #### C BCA, BMP, 56868-4, 03666-4, 96829-6 #### [facility] ([id number]) [address] [place] [address] 30565 Basic Metabolic Panelon - Anion gap [Moles/Vol] 5 mmol/L 5 - 15 mmol/L [facility] Calcium [Mass/Vol] 8.1 mg/dL Low 8.5 - 10. 5 mg/dL [facility] Chloride [Moles/Vol] 107 mmol/L 98 - 10 9 mmol/L [facility] CO2 [Moles/Vol] 27 mmol/L 22 - 32 mmol/L [facility] Creatinine [Mass/Vol] 2.56 mg/dL High 0.40 - 1.00 mg/dL [facility] Comment on above: METHOD TRACEABLE TO IDMS STANDARD eGFR (CKD-EPI)non-race dependent 21 Low - PINF [facility] Comment on above: Reported eGFR is based on the CKD-EPI 2020 equation that does not use a race coefficient. Glucose [Mass/Vol] 95 mg/dL 65 - 99 mg/dL [facility] Interpretation and review of laboratory results Abnormal [facility] Potassium [Moles/Vol] 3.1 mmol/L Low 3.5 - 5.0 mmol/L [facility] Sodium [Moles/Vol] 139 mmol/L 134 - 146 mmol/L [facility] Urea nitrogen [Mass/Vol] 19 mg/dL 5 - 23 mg/dL [facility] CBC AND AUTO DIFFon 10-14-19 24 ABSOLUTE BASOPHIL 0.1 X10E9/L Normal 0.0-0.2 [facility] Comment on above: Performed By: #### C VIRGILIO, BMP, , 84135-5, 05172-9 #### [facility] ([id number]) [address] [place] [address] 81226 ABSOLUTE NEUTROPHIL 5.7 X10E9/L Normal 1.5-6.6 [facility] Comment on above: Performed By: #### Shahla POOLE, BMP, , 45562-0, 61728-6 #### [facility] ([id number]) [address] [place] [address] 84999 Basophils/100 WBC (Bld) 0.7 % Normal [facility] Comment on above: Performed By: #### C VIRGILIO, BMP, , 78701-0, 76937-4 #### [facility] ([id number]) [address] [place] [address] 12332 Eosinophils (Bld) [#/Vol] 0.5 10*3/uL High 0.0-0.4 [facility] Comment on above: Performed By: #### Shahla POOLE, BMP, , 77680-4, 41185-3 #### [facility] ([id number]) [address] [place] [address] 77113 Eosinophils/100 WBC (Bld) 4.9 % Normal [facility] Comment on above: Performed By: #### Shahla BCA, BMP, , 40446-5, 12939-1 #### [facility] ([id number]) [address] [place] [address] 75665 Erythrocyte distribution width (RBC) [Ratio] 14.6 % Normal 11.5-15.0 [facility] Comment on above: Performed By: #### C VIRGILIO, BMP, 47092-5, 10329-6, 87309-7 #### [facility] ([id number]) [address] [place] [address] 85269 Hematocrit (Bld) [Volume fraction] 33.2 % Low 35-47 [facility] Comment on above: Performed By: #### C BCA, BMP, 83913-9, 80033-0, 65483-2 #### [facility] ([id number]) [address] [place] [address] 49200 Hemoglobin (Bld) [Mass/Vol] 10.9 g/dL Low 11.7-15.5 [facility] Comment on above: Performed By: #### Shahla POLOE, BMP, , 62913-7, 98135-9 #### [facility] ([id number]) [address] [place] [address] 53145 Lymphocytes (Bld) [#/Vol] 2.8 10*3/uL Normal 1.0-3.5 [facility] Comment on above: Performed By: #### C BCA, BMP, , 31665-9, 56182-0 #### [facility] ([id number]) [address] [place] [address] 77042 Lymphocytes/100 WBC (Bld) 28.7 % Normal [facility] Comment on above: Performed By: #### C BCA, BMP, 92967-4, 39524-8, 54308-4 #### [facility] ([id number]) [address] [place] [address] 77952 MCH (RBC) [Entitic mass] 27.7 pg Normal 27-34 [facility] Comment on above: Performed By: #### C BCA, BMP, 89614-7, 30867-1, 38881-7 #### [facility] ([id number]) [address] [place] [address] 67470 MCHC (RBC) [Mass/Vol] 32.9 g/dL Normal 32-36 [facility] Comment on above: Performed By: #### Shahla POOLE, MARIO, , 08317-8, 83646-1 #### [facility] ([id number]) [address] [place] [address] 50407 MCV (RBC) [Entitic vol] 84 fL Normal 80-100 [facility] Comment on above: Performed By: #### Shahla POOLE, MARIO, , 65309-7, 80907-9 #### [facility] ([id number]) [address] [place] [address] 08228 Monocytes (Bld) [#/Vol] 0.8 10*3/uL Normal 0-0.9 [facility] Comment on above: Performed By: #### Shahla POOLE, MARIO, , 46774-3, 95490-5 #### [facility] ([id number]) [address] [place] [address] 20326 Monocytes/100 WBC (Bld) 8.1 % Normal [facility] Comment on above: Performed By: #### Shahla POOLE, BMP, , 63277-9, 88648-9 #### [facility] ([id number]) [address] [place] [address] 24970 Neutrophils/100 WBC (Bld) 57.6 % Normal [facility] Comment on above: Performed By: #### Shahla POOLE, BMP, , 48167-2, 95784-0 #### [facility] ([id number]) [address] [place] [address] 27586 Platelet mean volume (Bld) [Entitic vol] 8.9 fL Normal 7-12 [facility] Comment on above: Performed By: #### Shahla POOLE, MARIO, 01675-5, 87233-6, 94299-7 #### [facility] ([id number]) [address] [place] [address] 52550 Platelets (Bld) [#/Vol] 319 10*3/uL Normal 150-450 [facility] Comment on above: Performed By: #### Shahla POOLE, MARIO, , 08416-3, 91011-3 #### [facility] ([id number]) [address] [place] [address] 97612 RBC COUNT 3.95 X10E12/L Normal 3.80-5.20 [facility] Comment on above: Performed By: #### Shahla POOLE, MARIO, , 84497-6, 78074-9 #### [facility] ([id number]) [address] [place] [address] 36576 WBC (Bld) [#/Vol] 9.9 10*3/uL Normal 4.0-11.0 [facility] Comment on above: Performed By: #### Shahla POOLE, MARIO, , 94271-2, 88917-4 #### [facility] ([id number]) [address] [place] [address] 57077 CBC auto differentialon 09-23 Basophils (Bld) [#/Vol] [...] 10.9 g/dL Low 11.7 - 15.5 g/dL [facility] Interpretation and review of laboratory results Abnormal [facility] Lymphocytes (Bld) [#/Vol] 2.8 10*3/uL [facility] Lymphocytes/100 WBC (Bld) 28.7 % [facility] MCH (RBC) [Entitic mass] 27.7 pg 27 - 34 [facility] MCHC (RBC) [Mass/Vol] 32.9 g/dL 32 - 3 6 g/dL [facility] MCV (RBC) [Entitic vol] 84 fL 80 - 100 fL [facility] Monocytes (Bld) [#/Vol] 0.8 10*3/uL [facility] Monocytes/100 WBC (Bld) 8.1 % [facility] Neutrophils (Bld) [#/Vol] 5.7 10*3/uL [facility] Neutrophils/100 WBC (Bld) 57.6 % [facility] Platelet mean volume (Bld) [Entitic vol] 8.9 fL 7 - 12 fL [facility] Platelets (Bld) [#/Vol] 319 10*3/uL [facility] RBC (Bld) [#/Vol] 3.95 10*6/uL [facility] WBC corrected for nucl RBC Auto (Bld) [#/Vol] 9.9 [facility] ECG 12 leadOrdered By: Mauricio Huber on 10-14-2023 [facility] MAGNESIUMon 10-14-2023 Magnesium [Mass/Vol] 1.8 mg/dL Normal 1.8-2.6 [facility] Comment on above: Performed By: #### C BCA, BMP, 55515-8, 08244-3, 76437-7 #### [facility] ([id number]) [address] [place] [address] Magnesiumon 10-14-2023 Magnesium [Mass/Vol] 1.8 mg/dL 1.8 - 2 .6 mg/dL [facility] Natriuretic peptide B [Mass/ Vol]on 10-14-2023 Interpretation and review of laboratory results Abnormal [facility] Natriuretic peptide B (Bld) [Mass/Vol] 427 pg/mL High NINF - 100.0 pg/mL [facility] Natriuretic peptide B (Bld) [Mass/Vol] 427 pg/mL High <100.0 [facility] Comment on above: Performed By: #### C BCA, BMP, 03059-8, 73491-7, 58050-1 #### [facility] ([id number]) [address] [place] [address], [place] [address] No Panel Informationon 10-13 [facility] Troponin I, High Sensitivity on 10-14-2023 Troponin I.cardiac High sensitivity method [Mass/Vol] 39 ng/L High NINF - 16 ng/L [facility] Comment on above: Elevations of hs-Troponin may be due to causes other than myocardial ischemia. Recommend serial hs-Troponin testing be performed. For the initial evaluation and management of chest pain patients, refer to the algorithms linked below. Emergency Patient: [email or web address] Inpatient: [email or web address]&uh=[email or web address] Troponin I.cardiac High sens itivity method [Mass/Vol]on 10-14-2023 1 HOUR TROP I, HIGH SENSITIVITY 39 ng/L High <16 [facility] Comment on above: Result Comment: Elevations of hs-Troponin may be due to causes other than myocardial ischemia. Recommend serial hs-Troponin testing be performed. For the initial evaluation and management of chest pain patients, refer to the algorithms linked below. Emergency Patient: [email or web address] Inpatient: [email or web address]&uh=[email or web address] Performed By: #### 8 9579-7 #### [facility] ([id number]) [address] [place] [address] 70649 Interpretation and review of laboratory results Abnormal [facility] TROPONIN I, HIGH SENSITIVITY 39 ng/L High <16 [facility] Comment on above: Result Comment: Elevations of hs-Troponin may be due to causes other than myocardial ischemia. Recommend serial hs-Troponin testing be performed. For the initial evaluation and management of chest pain patients, refer to the algorithms linked below. Emergency Patient: [email or web address]&uh=acaea Inpatient: [email or web address]&uh=acaea Performed By: #### C BCA, BMP, 18419-2, 21543-3, 94401-6 #### [facility] ([id number]) [address] [place] [address], [place] [address] XR CHEST 1 VWon 10-14-2023 XR CHEST 1 VW XR CHEST 1 VW Single view chest History: Difficulty breathing, shortness of breath Comparison: 01/01/2021 Impression: 1. Low lung volumes and hypoventilatory change, Central pulmonary vascular congestion without overt pulmonary edema. No sizable pleural effusion, no definite pneumothorax. 2. Borderline cardiomegaly. Finalized by Naren Morris MD on 10/14/2023 11:39 PM Normal [facility] XR Chest Single viewon [...] Naren Morris MD on 10/14/2023 11:39 PM [facility] Study observation (narrative) [facility] XR Chest Single viewOrdered By: Naren Morris on 10-14-2023 [facility] Work Phone: ANTIBODY ID PANELon 01-03-20 ANTIBODY ID PANEL Antibody ID Anti-Jka Normal [facility] Comment on above: Performed By: #### C TABBY, HSTROPN #### [facility] [address] [place] [address] Dr. Steve Valentin CBC AUTO DIFFon 12-31-2021 BASO # 0.0 103/ul Normal 0.0-0.1 [facility] Comment on above: Performed By: #### C TABBY, HSTROPN #### [facility] [address] [place] [address] Dr. Steve Valentin Basophils/100 WBC (Bld) 0.9 % Normal 0.2-2.0 [facility] Comment on above: Performed By: #### C TABBY, HSTROPN #### [facility] [address] [place] [address] Dr. Steve Valentin EO # 0.2 103/ul Normal 0.0-0.7 [facility] Comment on above: Performed By: #### C TABBY, HSTROPN #### [facility] [address] [place] [address] Dr. Steve Valentin Eosinophils/100 WBC (Bld) 4.3 % Normal 0.9-7.0 [facility] Comment on above: Performed By: #### C TABBY, HSTROPN #### [facility] [address] [address] [address] Steve Valentin Erythrocyte distribution width (RBC) [Ratio] 14.1 % Normal 11.0-15.0 [facility] Comment on above: Performed By: #### C MP, HSTROPN #### [facility] [address] [place] [address] Dr. Steve Valentin Hematocrit (Bld) [Volume fraction] 34.6 % Critically low 36.0-48.0 [facility] Comment on above: Performed By: #### C MP, HSTROPN #### [facility] [address] [place] [address] Dr. Steve Valentin Hemoglobin (Bld) [Mass/Vol] 10.9 g/dL Critically low 12.0-16.0 [facility] Comment on above: Performed By: #### C MP, HSTROPN #### [facility] [address] [place] [address] Dr. Steve Valentin IG # 0.01 10e3/ul Normal 0.00-0.03 [facility] Comment on above: Performed By: #### C MP, HSTROPN #### [facility] [address] [place] [address] Dr. Steve Valentin IG % 0.3 % Normal 0.0-0.5 [facility] Comment on above: Performed By: #### C MP, HSTROPN #### [facility] [address] [place] [address] Dr. Steve Valentin LYMPH # 0.9 103/ul Critically low 1.2-3.8 [facility] Comment on above: Performed By: #### C MP, HSTROPN #### [facility] [address] [place] [address] Dr. Steve Valentin Lymphocytes/100 WBC (Bld) 26.3 % Normal 20.5-60.0 [facility] Comment on above: Performed By: #### C MP, HSTROPN #### [facility] [address] [place] [address] Dr. Steve Valentin MANUAL DIFF REQ NO Normal [facility] Comment on above: Performed By: #### C MP, HSTROPN #### [facility] [address] [place] [address] Dr. Steve Valentin MCH (RBC) [Entitic mass] 26.7 pg Normal 26.7-34.0 [facility] Comment on above: Performed By: #### C MP, HSTROPN #### [facility] [address] [place] [address] Dr. Steve Valentin MCHC (RBC) [Mass/Vol] 31.5 g/dL Normal 29.9-35.2 [facility] Comment on above: Performed By: #### C MP, HSTROPN #### [facility] [address] [place] [address] Dr. Steve Valentin MCV (RBC) [Entitic vol] 84.8 fL Normal 81.0-99.0 [facility] Comment on above: Performed By: #### C MP, HSTROPN #### [facility] [address] [place] [address] Dr. Steve Valentin MONO # 0.3 103/ul Normal 0.3-0.8 [facility] Comment on above: Performed By: #### C MP, HSTROPN #### [facility] [address] [place] [address] Dr. Steve Valentin Monocytes/100 WBC (Bld) 9.5 % Normal 1.7-12.0 [facility] Comment on above: Performed By: #### C MP, HSTROPN #### [facility] [address] [place] [address] Dr. Steve Valentin NEUT # 2.0 103/ul Normal 1.4-6.5 [facility] Comment on above: Performed By: #### C MP, HSTROPN #### [facility] [address] [place] [address] Dr. Steve Valentin Neutrophils/100 WBC (Bld) 58.7 % Normal 43.0-75.0 [facility] Comment on above: Performed By: #### C MP, HSTROPN #### [facility] [address] [address] [address] Steve Valentin Platelet mean volume (Bld) [Entitic vol] 10.5 fL Normal 9.5-13.5 [facility] Comment on above: Performed By: #### C MP, HSTROPN #### [facility] [address] [address] [address] Steve Valentin PLT 164 103/ul Normal 150-450 [facility] Comment on above: Performed By: #### C MP, HSTROPN #### [facility] [address] [place] [address] Dr. Steve Valentin RBC 4.08 106/ul Critically low 4.20-5.40 [facility] Comment on above: Performed By: #### C MP, HSTROPN #### [facility] [address] [place] [address] Dr. Steve Valentin WBC 3.5 103/ul Critically low 4.0-11.0 [facility] Comment on above: Performed By: #### C MP, HSTROPN #### [facility] [address] [place] [address] Dr. Steve Valentin PROF 14(COMP METB)on 022 Albumin [Mass/Vol] 3.0 g/dL Critically low 3.4-5.0 [facility] Comment on above: Performed By: #### C MP #### [facility] [address] [place] [address] Dr. Steve Valentin Albumin/Globulin [Mass ratio] 1.0 {ratio} Normal [facility] Comment on above: Performed By: #### C MP #### [facility] [address] [place] [address] Dr. Steve Valentin ALP [Catalytic activity/Vol] 56 U/L Normal 46-116 [facility] Comment on above: Performed By: #### C MP #### [facility] [address] [place] [address] Dr. Steve Valentin ALT [Catalytic activity/Vol] 20 U/L Normal 14-59 [facility] Comment on above: Performed By: #### C MP #### [facility] [address] [address] [address] Steve Valentin Anion gap [Moles/Vol] 9.3 mmol/L Normal [facility] Comment on above: Performed By: #### C MP #### [facility] [address] [address] [address] Steve Valentin AST [Catalytic activity/Vol] 17 U/L Normal 15-37 [facility] Comment on above: Performed By: #### C MP #### [facility] [address] [address] [address] Steve Valentin Bilirubin [Mass/Vol] 0.2 mg/dL Normal 0.2-1.0 [facility] Comment on above: Performed By: #### C MP #### [facility] [address] [address] [address] Steve Valentin Calcium [Mass/Vol] 8.8 mg/dL Normal 8.5-10.1 [facility] Comment on above: Performed By: #### C MP #### [facility] [address] [address] [address] Steve Valentin Chloride [Moles/Vol] 106 mmol/L Normal 98-107 [facility] Comment on above: Performed By: #### C MP #### [facility] [address] [address] [address] Steve Valentin CO2 [Moles/Vol] 26.5 mmol/L Normal 21.0-32.0 [facility] Comment on above: Performed By: #### C MP #### [facility] [address] [address] [address] Steve Valentin Creatinine [Mass/Vol] 0.92 mg/dL Normal 0.55-1.02 [facility] Comment on above: Performed By: #### C MP #### [facility] [address] [place] [address] Dr. Steve Valentin EGFR-AF GIBRALTARIAN >60 Normal >=60 [facility] Comment on above: Performed By: #### C MP #### [facility] [address] [address] [address] Steve Valentin EGFR-NON AF GIBRALTARIAN >60 Normal >=60 [facility] Comment on above: Performed By: #### C MP #### [facility] [address] [address] [address] Steve Valentin Globulin (S) [Mass/Vol] 2.9 g/dL Normal T [facility] [place] Comment on above: Performed By: #### C MP #### [facility] [address] [address] [address] Steve Valentin Glucose [Mass/Vol] 97 mg/dL Normal 74-106 [facility] Comment on above: Performed By: #### C MP #### [facility] [address] [address] [address] Steve Valentin Potassium [Moles/Vol] 3.8 mmol/L Normal 3.5-5.1 [facility] Comment on above: Performed By: #### C MP #### [facility] [address] [address] [address] Steve Valentin Protein [Mass/Vol] 5.9 g/dL Critically low 6.4-8.2 Th [facility] Comment on above: Performed By: #### C MP #### [facility] [address] [address] [address] Steve Valentin Sodium [Moles/Vol] 138 mmol/L Normal 136-145 [facility] Comment on above: Performed By: #### C MP #### [facility] [address] [address] [address] Steve Valentin Urea nitrogen [Mass/Vol] 5.0 mg/dL Critically low 7.0-18. 0 [facility] Comment on above: Performed By: #### C MP #### [facility] [address] [address] [address] Steve Valentin Urea nitrogen/Creatinine [Mass ratio] 5.4 mg/mg Normal [facility] Comment on above: Performed By: #### C MP #### [facility] [address] [address] [address] Steve Valentin CBC AUTO DIFFon 12-30-2021 BASO # 0.0 103/ul Normal 0.0-0.1 [facility] Comment on above: Performed By: #### C BC #### [facility] [address] [place] [address] Dr. Steve Valentin Basophils/100 WBC (Bld) 0.5 % Normal 0.2-2.0 [facility] Comment on above: Performed By: #### C BC #### [facility] [address] [place] [address] Dr. Steve Valentin EO # 0.1 103/ul Normal 0.0-0.7 [facility] Comment on above: Performed By: #### C BC #### [facility] [address] [place] [address] Dr. Steve Valentin Eosinophils/100 WBC (Bld) 3.2 % Normal 0.9-7.0 [facility] Comment on above: Performed By: #### C BC #### [facility] [address] [place] [address] Dr. Steve Valentin Erythrocyte distribution width (RBC) [Ratio] 14.0 % Normal 11.0-15.0 [facility] Comment on above: Performed By: #### C BC #### [facility] [address] [place] [address] Dr. tSeve Valentin Hematocrit (Bld) [Volume fraction] 38.3 % Normal 36.0-48.0 [facility] Comment on above: Performed By: #### C BC #### [facility] [address] [place] [address] Dr. Steve Valentin Hemoglobin (Bld) [Mass/Vol] 11.7 g/dL Critically low 12.0-16.0 [facility] Comment on above: Performed By: #### C BC #### [facility] [address] [place] [address] Dr. Steve Valentin IG # 0.01 10e3/ul Normal 0.00-0.03 [facility] Comment on above: Performed By: #### C BC #### [facility] [address] [place] [address] Dr. Steve Valentin IG % 0.2 % Normal 0.0-0.5 [facility] Comment on above: Performed By: #### C BC #### [facility] [address] [place] [address] Dr. Steve Valentin LYMPH # 1.3 103/ul Normal 1.2-3.8 [facility] Comment on above: Performed By: #### C BC #### [facility] [address] [place] [address] Dr. Steve Valentin Lymphocytes/100 WBC (Bld) 29.6 % Normal 20.5-60.0 [facility] Comment on above: Performed By: #### C BC #### [facility] [address] [place] [address] Dr. Steve Valentin MANUAL DIFF REQ NO Normal [facility] Comment on above: Performed By: #### C BC #### [facility] [address] [place] [address] Dr. Steve Valentin MCH (RBC) [Entitic mass] 26.0 pg Critically low 26.7-34 .0 [facility] Comment on above: Performed By: #### C BC #### [facility] [address] [place] [address] Dr. Steve Valentin MCHC (RBC) [Mass/Vol] 30.5 g/dL Normal 29.9-35.2 [facility] Comment on above: Performed By: #### C BC #### [facility] [address] [place] [address] Dr. Steve Valentin MCV (RBC) [Entitic vol] 85.1 fL Normal 81.0-99.0 [facility] Comment on above: Performed By: #### C BC #### [facility] [address] [place] [address] Dr. Steve Valentin MONO # 0.5 103/ul Normal 0.3-0.8 [facility] Comment on above: Performed By: #### C BC #### [facility] [address] [place] [address] Dr. Steve Valentin Monocytes/100 WBC (Bld) 10.6 % Normal 1.7-12.0 [facility] Comment on above: Performed By: #### C BC #### [facility] [address] [place] [address] Dr. Steve Valentin NEUT # 2.4 103/ul Normal 1.4-6.5 [facility] Comment on above: Performed By: #### C BC #### [facility] [address] [place] [address] Dr. Steve Valentin Neutrophils/100 WBC (Bld) 55.9 % Normal 43.0-75.0 [facility] Comment on above: Performed By: #### C BC #### [facility] [address] [place] [address] Dr. Steve Valentin Platelet mean volume (Bld) [Entitic vol] 10.0 fL Normal 9.5-13.5 [facility] Comment on above: Performed By: #### C BC #### [facility] [address] [place] [address] Dr. Steve Valentin PLT 169 103/ul Normal 150-450 [facility] Comment on above: Performed By: #### C BC #### [facility] [address] [place] [address] Dr. Steve Valentin RBC 4.50 106/ul Normal 4.20-5.40 [facility] Comment on above: Performed By: #### C BC #### [facility] [address] [place] [address] Dr. Steve Valentin WBC 4.4 103/ul Normal 4.0-11.0 [facility] Comment on above: Performed By: #### C BC #### [facility] [address] [place] [address] Dr. Steve Valentin BASO # 0.0 103/ul Normal 0.0-0.1 [facility] Comment on above: Performed By: #### C BC #### [facility] [address] [place] [address] Dr. Steve Valentin Basophils/100 WBC (Bld) 0.4 % Normal 0.2-2.0 [facility] Comment on above: Performed By: #### C BC #### [facility] [address] [place] [address] Dr. Steve Valentin EO # 0.2 103/ul Normal 0.0-0.7 [facility] Comment on above: Performed By: #### C BC #### [facility] [address] [place] [address] Dr. Steve Valentin Eosinophils/100 WBC (Bld) 2.6 % Normal 0.9-7.0 [facility] Comment on above: Performed By: #### C BC #### [facility] [address] [place] [address] Dr. Steve Valentin Erythrocyte distribution width (RBC) [Ratio] 13.9 % Normal 11.0-15.0 [facility] Comment on above: Performed By: #### C BC #### [facility] [address] [place] [address] Dr. Steve Valentin Hematocrit (Bld) [Volume fraction] 39.1 % Normal 36.0-48.0 [facility] Comment on above: Performed By: #### C BC #### [facility] [address] [place] [address] Dr. Steve Valentin Hemoglobin (Bld) [Mass/Vol] 12.3 g/dL Normal 12.0-16.0 [facility] Comment on above: Performed By: #### C BC #### [facility] [address] [place] [address] Dr. Steve Valentin IG # 0.02 10e3/ul Normal 0.00-0.03 [facility] Comment on above: Performed By: #### C BC #### [facility] [address] [place] [address] Dr. Steve Valentin IG % 0.4 % Normal 0.0-0.5 [facility] Comment on above: Performed By: #### C BC #### [facility] [address] [place] [address] Dr. Steve Valentin LYMPH # 1.1 103/ul Critically low 1.2-3.8 [facility] Comment on above: Performed By: #### C BC #### [facility] [address] [place] [address] Dr. Steve Valentin Lymphocytes/100 WBC (Bld) 18.9 % Critically low 20.5-60.0 [facility] Comment on above: Performed By: #### C BC #### [facility] [address] [place] [address] Dr. Steve Valentin MANUAL DIFF REQ NO Normal [facility] Comment on above: Performed By: #### C BC #### [facility] [address] [place] [address] Dr. Steve Valentin MCH (RBC) [Entitic mass] 26.3 pg Critically low 26.7-34 .0 [facility] Comment on above: Performed By: #### C BC #### [facility] [address] [place] [address] Dr. Steve Valentin MCHC (RBC) [Mass/Vol] 31.5 g/dL Normal 29.9-35.2 [facility] Comment on above: Performed By: #### C BC #### [facility] [address] [place] [address] Dr. Steve Valentin MCV (RBC) [Entitic vol] 83.7 fL Normal 81.0-99.0 [facility] Comment on above: Performed By: #### C BC #### [facility] [address] [place] [address] Dr. Steve Valentin MONO # 0.6 103/ul Normal 0.3-0.8 [facility] Comment on above: Performed By: #### C BC #### [facility] [address] [place] [address] Dr. Steve Valentin Monocytes/100 WBC (Bld) 10.0 % Normal 1.7-12.0 [facility] Comment on above: Performed By: #### C BC #### [facility] [address] [place] [address] Dr. Steve Valentin NEUT # 3.9 103/ul Normal 1.4-6.5 [facility] Comment on above: Performed By: #### C BC #### [facility] [address] [place] [address] Dr. Steve Valentin Neutrophils/100 WBC (Bld) 67.7 % Normal 43.0-75.0 [facility] Comment on above: Performed By: #### C BC #### [facility] [address] [place] [address] Dr. Steve Valentin Platelet mean volume (Bld) [Entitic vol] 10.0 fL Normal 9.5-13.5 [facility] Comment on above: Performed By: #### C BC #### [facility] [address] [place] [address] Dr. Steve Valentin PLT 200 103/ul Normal 150-450 [facility] Comment on above: Performed By: #### C BC #### [facility] [address] [place] [address] Dr. Steve Valentin RBC 4.67 106/ul Normal 4.20-5.40 [facility] Comment on above: Performed By: #### C BC #### [facility] [address] [place] [address] Dr. Steve Valentin WBC 5.7 103/ul Normal 4.0-11.0 [facility] Comment on above: Performed By: #### C BC #### [facility] [address] [place] [address] ABD/PELV W CONon [...] LO COSTA Date: 2021-12-30 08:30 Normal [facility] SARS-CoV-2 (COVID-19) RNA RADHA+probe Ql (Unsp spec) Not detected Normal NOT DETECTED [facility] Comment on above: Result Comment: When [...] for this test is supported by the Psychology Assistant of Health and Human Service's declaration that [...] used). Performed By: #### C VDTBH #### [facility] [address] [place] [address] Dr. Steve Valentin DIRECT COOMBSon 12-30-2021 DIRECT AMARJIT Negative Normal [facility] Comment on above: Performed By: #### C MP, HSTROPN #### [facility] [address] [address] [address] Steve Valentin LACTATE/LACTIC ACIDon 2021 Lactate [Moles/Vol] 1.2 mmol/L Normal 0.4-1.9 [facility] Comment on above: Performed By: #### L ACT #### [facility] [address] [address] [address] Steve Valentin PROF 14(COMP METB)on 022 Albumin [Mass/Vol] 3.4 g/dL Normal 3.4-5.0 [facility] Comment on above: Performed By: #### C MP, HSTROPN #### [facility] [address] [address] [address] Steve Valentin Albumin/Globulin [Mass ratio] 1.1 {ratio} Normal [facility] Comment on above: Performed By: #### C MP, HSTROPN #### [facility] [address] [address] [address] Steve Valentin ALP [Catalytic activity/Vol] 66 U/L Normal 46-116 [facility] Comment on above: Performed By: #### C MP, HSTROPN #### [facility] [address] [address] [address] Steve Valentin ALT [Catalytic activity/Vol] 18 U/L Normal 14-59 [facility] Comment on above: Performed By: #### C MP, HSTROPN #### [facility] [address] [address] [address] Steve Valentin Anion gap [Moles/Vol] 9.1 mmol/L Normal [facility] Comment on above: Performed By: #### C MP, HSTROPN #### [facility] [address] [address] [address] Steve Valentin AST [Catalytic activity/Vol] 14 U/L Critically low 15-37 [facility] Comment on above: Performed By: #### C MP, HSTROPN #### [facility] [address] [address] [address] Steve Valentin Bilirubin [Mass/Vol] 0.3 mg/dL Normal 0.2-1.0 [facility] Comment on above: Performed By: #### C MP, HSTROPN #### [facility] [address] [address] [address] Steve Valentin Calcium [Mass/Vol] 9.2 mg/dL Normal 8.5-10.1 [facility] Comment on above: Performed By: #### C MP, HSTROPN #### [facility] [address] [place] [address] Dr. Steve Valentin Chloride [Moles/Vol] 104 mmol/L Normal 98-107 [facility] Comment on above: Performed By: #### C MP, HSTROPN #### [facility] [address] [place] [address] Dr. Steve Valentin CO2 [Moles/Vol] 25.5 mmol/L Normal 21.0-32.0 [facility] Comment on above: Performed By: #### C MP, HSTROPN #### [facility] [address] [place] [address] Dr. Steve Valentin Creatinine [Mass/Vol] 0.94 mg/dL Normal 0.55-1.02 [facility] Comment on above: Performed By: #### C MP, HSTROPN #### [facility] [address] [place] [address] Dr. Steve Valentin EGFR-AF GIBRALTARIAN >60 Normal >=60 [facility] Comment on above: Performed By: #### C MP, HSTROPN #### [facility] [address] [place] [address] Dr. Steve Valentin EGFR-NON AF GIBRALTARIAN >60 Normal >=60 [facility] Comment on above: Performed By: #### C MP, HSTROPN #### [facility] [address] [place] [address] Dr. Steve Valentin Globulin (S) [Mass/Vol] 3.1 g/dL Normal T [facility] [place] Comment on above: Performed By: #### C MP, HSTROPN #### [facility] [address] [place] [address] Dr. Steve Valentin Glucose [Mass/Vol] 98 mg/dL Normal 74-106 [facility] Comment on above: Performed By: #### C MP, HSTROPN #### [facility] [address] [place] [address] Dr. Steve Valentin Potassium [Moles/Vol] 3.6 mmol/L Normal 3.5-5.1 [facility] Comment on above: Performed By: #### C MP, HSTROPN #### [facility] [address] [address] [address] Steve Valentin Protein [Mass/Vol] 6.5 g/dL Normal 6.4-8.2 [facility] Comment on above: Performed By: #### C TABBY, HSTROPN #### [facility] [address] [place] [address] Dr. Steve Valentin Sodium [Moles/Vol] 135 mmol/L Critically low 136-145 [facility] Comment on above: Performed By: #### C MP, HSTROPN #### [facility] [address] [place] [address] Dr. Steve Valentin Urea nitrogen [Mass/Vol] 11.0 mg/dL Normal 7.0-18.0 [facility] Comment on above: Performed By: #### C TABBY, HSTROPN #### [facility] [address] [place] [address] Dr. Steve Valentin Urea nitrogen/Creatinine [Mass ratio] 11.7 mg/mg Normal [facility] Comment on above: Performed By: #### C MP, HSTROPN #### [facility] [address] [place] [address] Dr. Steve Valentin TROPONIN, HIGH SENSITIVITYon 12-30-2021 HSTROP 8.6 pg/mL Normal 4.0-51.3 [facility] Comment on above: Result Comment: CUT- OFF POINTS HAVE BEEN ESTABLISHED BASED ON THE FOURTH UNIVERSAL DEFINITIONS OF MYOCARDIAL INFARCTION. THE UPPER REFERENCE LIMIT (URL) OF TROPONIN, DEFINED THE 99TH PERCENTILE OF cTnI DISTRIBUTION IN A REFERENCE POPULATION, HAS BEEN CONFIRMED THE DECISION THRESHOLD FOR AR DIAGNOSIS. Performed By: #### C MP, HSTROPN #### [facility] [address] [place], [place] [address] Dr. Steve Valentin TYPE AND SCREENon 12-30-2021 TYPE AND SCREEN Positive Normal [facility] Comment on above: Performed By: #### T NS #### [facility] [address] [place], [place] [address] Dr. Steve Valentin XR CERVICAL SPINE (2-3 [...] Yaritza Pinedo MD 01/20/20 Final result Normal [facility] Multilevel degenerative changes [employer], [place] EXAMINATION: XRAY VIEWS OF THE CERVICAL [...] dislocation or significant prevertebral soft tissue swelling [employer], [place], [employer] Incoming Radiant Results From [employer] - 01/20/2020 11:34 AM EDT EXAMINATION: XRAY [...] soft tissue swelling IMPRESSION: Multilevel degenerative changes [employer], [place] XR LUMBAR SPINE (2-3 VIEWS)o n [...] Mitesh Ho MD 01/20/20 Final result Normal [facility] No acute abnormality lumbosacral spine. Degenerative findings most severe at L5-S1, with evidence DDD. [employer], [place] EXAMINATION: THREE XRAY VIEWS OF THE [...] Large amount of retained stool right colon. [employer], [place] [employer], [employer] Incoming Radiant Results From [facility] - 01/20/2020 12:11 PM EDT EXAMINATION: THREE [...] most severe at L5-S1, with evidence DDD. [employer], [place] Hematologyon 01-25-2018 Basophils Auto #/vol (Bld) 0.7 % Invalid Interpretation Code [facility] Basophils/100 WBC Auto (Bld) 0.0 K/uL Invalid Interpretation Code 0.0-0.1 [facility] Eosinophils/100 WBC Auto (Bld) 3.2 % Invalid Interpretation Code [facility] Erythrocyte distribution width Auto Ratio (RBC) 14.2 % Invalid Interpretation Code 10.8-14.8 [facility] Hematocrit Auto Volume Fraction (Bld) 34.70 % Invalid Interpretation Code 36.0-48.0 [facility] Hemoglobin S Solubility test Ql (Bld) 11.7 Invalid Interpretation Code 12.0-16.0 [facility] Lymphocytes/100 WBC Auto (Bld) 43.3 % Invalid Interpretation Code [facility] MCH Auto Entitic mass (RBC) 27.1 pg Invalid Interpretation Code 27.0-34.0 [facility] MCHC Auto mass conc (RBC) 33.7 g/dL Invalid Interpretation Code 31.0-36.0 [facility] MCV Auto Entitic volume (RBC) 80.5 fL Invalid Interpretation Code 80.-100. [facility] Monocytes/100 WBC Auto (Bld) 6.5 % Invalid Interpretation Code [facility] Neutrophils/100 WBC Auto (Bld) 46.1 % Invalid Interpretation Code [facility] Nucleated RBC/100 WBC Ratio (Bld) 0.1 10*3/uL Invalid Interpretation Code 0.1-0.4 [facility] Nucleated RBC/100 WBC Ratio (Bld) 1.9 10*3/uL Invalid Interpretation Code 0.8-5.2 [facility] Nucleated RBC/100 WBC Ratio (Bld) 0.3 10*3/uL Invalid Interpretation Code 0.1-0.9 [facility] Nucleated RBC/100 WBC Ratio (Bld) 2.0 10*3/uL Invalid Interpretation Code 1.3-9.1 [facility] RBC Auto #/vol (Bld) 4.310 10*6/uL Invalid Interpretation Code 4.00-5.50 [facility] Metabolic Panelon 01-25-2018 Albumin mass conc 4.10 g/dL Invalid Interpretation Code 3.5-5.2 [facility] ALP enzyme act/vol 50 U/L Invalid Interpretation Code 30-111 [facility] ALT enzyme act/vol 14 U/L Invalid Interpretation Code 5-40 [facility] Anion gap 3 molar conc 12 mmol/L Invalid Interpretation Code 10-19 [facility] AST enzyme act/vol 13 U/L Invalid Interpretation Code 9-40 [facility] Calcium mass conc 9.90 mg/dL Invalid Interpretation Code 8.5-10.5 [facility] Chloride molar conc 103 mmol/L Invalid Interpretation Code 95-107 [facility] CO2 molar conc 28 mmol/L Invalid Interpretation Code 19-31 [facility] Creatinine mass conc 1.0 mg/dL Invalid Interpretation Code 0.6-1.3 [facility] Glucose mass conc 89 mg/dL Invalid Interpretation Code 70-99 [facility] Potassium molar conc 4.30 mmol/L Invalid Interpretation Code 3.5-5.4 [facility] Protein mass conc 6.0 g/dL Invalid Interpretation Code 6.1-8.3 [facility] Protein mass conc 0.59 g/dL Invalid Interpretation Code <0.5 [facility] Sodium molar conc 143 mmol/L Invalid Interpretation Code 135-146 [facility] Urea nitrogen mass conc 14.0 mg/dL Invalid Interpretation Code 8-23 [facility] Otheron 01-25-2018 Bilirubin Ql (U) 0.2 Invalid Interpretation Code <1.3 [facility] WBC LM Ql (Sput) 4.4 Invalid Interpretation Code 3.7-10.8 [facility] 74.5 Invalid Interpretation Code >59 [facility] 237 Invalid Interpretation Code 150.-450. [facility] 15 Invalid Interpretation Code 0-30 [facility] 64.3 Invalid Interpretation Code >59 [facility] Thyroidon 01-25-2018 T4 free mass conc 1.140 ng/dL Invalid Interpretation Code 0.80-1.90 [facility] Thyrotropin Qn 1.750 uIU/mL Invalid Interpretation Code 0.400-4.10 0 [facility] Progress Noteon 10-23-2017 HIM IP Note OR Research/Program Director Normal [facility] HIM IP Note OR Research/Program Director Normal [facility] Otheron 09-20-2017 3 Invalid Interpretation Code [facility] 3 Invalid Interpretation Code [facility] Cardiacon 09-14-2017 Cholesterol 220 mg/dL Invalid Interpretation Code <200 [facility] HDL Cholesterol 77.0 mg/dL Invalid Interpretation Code >39 [facility] Triglyceride 113.0 mg/dL Invalid Interpretation Code <150 [facility] Hematologyon 09-14-2017 Basophils Auto #/vol (Bld) 1.0 % Invalid Interpretation Code [facility] Basophils/100 WBC Auto (Bld) 0.1 K/uL Invalid Interpretation Code 0.0-0.1 [facility] Eosinophils/100 leukocytes 2.9 % Invalid Interpretation Code [facility] Erythrocyte distribution width Auto Ratio (RBC) 14.1 % Invalid Interpretation Code 10.8-14.8 [facility] Erythrocytes (RBC) 4.230 10*6/uL Invalid Interpretation Code 4.00-5.50 [facility] Hematocrit (HCT) 37.0 % Invalid Interpretation Code 36.0-48.0 [facility] Hemoglobin S presence 11.7 Invalid Interpretation Code 12.0-16.0 [facility] Lipoprotein a mass conc 0.2 10*3/uL Invalid Interpretation Code 0.1-0.4 [facility] Lipoprotein a mass conc 2.0 10*3/uL Invalid Interpretation Code 0.8-5.2 [facility] Lipoprotein a mass conc 0.5 10*3/uL Invalid Interpretation Code 0.1-0.9 [facility] Lipoprotein a mass conc 2.6 10*3/uL Invalid Interpretation Code 1.3-9.1 [facility] Lymphocytes/100 leukocytes 37.6 % Invalid Interpretation Code [facility] MCH 27.7 pg Invalid Interpretation Code 27.0-34.0 [facility] MCHC mass conc (RBC) 31.6 g/dL Invalid Interpretation Code 31.0-36.0 [facility] MCV 87.5 fL Invalid Interpretation Code 80.-100. [facility] Monocytes/100 leukocytes 8.8 % Invalid Interpretation Code [facility] Neutrophils/100 leukocytes 49.5 % Invalid Interpretation Code [facility] WBC (Leukocytes) 5.2 10*3/uL Invalid Interpretation Code 3.7-10.8 [facility] Otheron 09-14-2017 Cholesterol crystals Infrared spectroscopy Ql (Stone) 220 mg/dL Invalid Interpretation Code <200 [facility] Cholesterol to HDL Ratio 2.9 {ratio} Invalid Interpretation Code <5 [facility] LDL to HDL Ratio 1.6 Invalid Interpretation Code <3.5 [facility] [employer] Lipoprotein.beta/Lipopro tein.alpha mass ratio 1.6 Invalid Interpretation Code <3.5 [facility] PreB-LP SerPl-mCnc 23.0 mg/dL Invalid Interpretation Code <30 [facility] PreB-LP SerPl-mCnc 120.0 mg/dL Invalid Interpretation Code <130 [facility] WBC LM Ql (Sput) 5.2 Invalid Interpretation Code 3.7-10.8 [facility] [employer] Mobile 298 Invalid Interpretation Code 150.-450. [facility] Thyroidon 09-14-2017 Thyroid stimulating hormone (TSH) 2.270 uIU/mL Invalid Interpretation Code 0.40-4.10 [facility] Thyroxine (T4) free 0.990 ng/dL Invalid Interpretation Code 0.80-1.90 [facility] Vital Signs Date Time Vital Sign Value Performing Clinician Ni barnard 01-31-2024 14:17-0400 Body mass index (BMI) [Ratio] 62.69 kg/m2 Erica Siddiquitrick BATTERY SERVICE TECHNICIAN Work Phone: [facility] 01-31-2024 14:17-0400 Body temperature 97.2 [degF] Erica Siddiquitrick BATTERY SERVICE TECHNICIAN Work Phone: [facility] 01-31-2024 14:17-0400 Body weight 145.6 kg Erica Siddiquitrick BATTERY SERVICE TECHNICIAN Work Phone: [facility] 01-31-2024 14:17-0400 Diastolic blood pressure 80 mm[Hg] Erica Menonpatrick BATTERY SERVICE TECHNICIAN Work Phone: [facility] 01-31-2024 14:17-0400 Heart rate 57 /min Erica Siddiquitrick BATTERY SERVICE TECHNICIAN Work Phone: [facility] 01-31-2024 14:17-0400 SaO2% (BldA) [Mass fraction] 94 % Erica Siddiquitrick BATTERY SERVICE TECHNICIAN Work Phone: [facility] 01-31-2024 14:17-0400 Systolic blood pressure 152 mm[Hg] Erica Menonpatrick BATTERY SERVICE TECHNICIAN Work Phone: [facility] 01-15-2024 14:38-0400 Diastolic blood pressure 74 mm[Hg] Hanane Courtneyasi CHEMIST HELPER-ESCROW REPRESENTATIVE Work Phone: [facility] 01-15-2024 14:38-0400 Heart rate 68 /min Hanane Valdezasi CHEMIST HELPER-ESCROW REPRESENTATIVE Work Phone: [facility] 01-15-2024 14:38-0400 Systolic blood pressure 130 mm[Hg] Hanane BARRERA Work Phone: [facility] 01-15-2024 14:36-0400 Body mass index (BMI) [Ratio] 64.25 kg/m2 Hanane BARRERA Work Phone: [facility] 01-15-2024 14:36-0400 Body weight 149.23 kg Hanane BARRERA Work Phone: [facility] 01-15-2024 14:36-0400 SaO2% (BldA) [Mass fraction] 96 % Hanane BARRERA Work Phone: [facility] 11-29-2023 08:53-0400 Body height 152.4 cm Pfo 1 [facility] 11-29-2023 08:53-0400 Body mass index (BMI) [Ratio] 65.27 kg/m2 Pfo 1 [facility] 11-29-2023 08:53-0400 Body temperature 97.39 [degF] Pfo 1 [facility] 11-29-2023 08:53-0400 Body weight 151.59 kg Pfo 1 [facility] 11-29-2023 08:53-0400 Diastolic blood pressure 73 mm[Hg] Pfo 1 [facility] 11-29-2023 08:53-0400 Heart rate 73 /min Pfo 1 [facility] 11-29-2023 08:53-0400 Respiratory rate 21 /min Pfo 1 [facility] 11-29-2023 08:53-0400 SaO2% (BldA) [Mass fraction] 99 % Pfo 1 [facility] 11-29-2023 08:53-0400 Systolic blood pressure 142 mm[Hg] Pfo 1 [facility] 10-18-2023 21:58-0400 Heart rate 75 /min Isma Hayward MD Work Phone: [facility] [employer] 10-18-2023 21:58-0400 Respiratory rate 18 /min Isma Hayward MD Work Phone: [facility] 10-18-2023 21:48-0400 SaO2% (BldA) [Mass fraction] 94 % Isma Hayward MD Work Phone: [facility] 10-18-2023 19:27-0400 Body temperature 98.1 [degF] Isma Hayward MD Work Phone: [facility] 10-18-2023 19:27-0400 Diastolic blood pressure 77 mm[Hg] Isma Hayward MD Work Phone: [facility] 10-18-2023 19:27-0400 Systolic blood pressure 137 mm[Hg] Isma Hayward MD Work Phone: [facility] 10-18-2023 03:45-0400 Body mass index (BMI) [Ratio] 64.86 kg/m2 Isma Hayward MD Work Phone: [facility] 10-18-2023 03:45-0400 Body weight 150.64 kg Isma Hayward MD Work Phone: [facility] 10-16-2023 12:10-0400 Body height 152.4 cm Isma Hayward MD Work Phone: [facility] 02-13-2018 13:08-0400 BMI (Body Mass Index) 56.47 kg/m2 [facility] 02-13-2018 13:08-0400 Body Temperature 98 [degF] [facility] 02-13-2018 13:08-0400 BP Diastolic 80 mm[Hg] [facility] 02-13-2018 13:08-0400 BP Systolic 124 mm[Hg] [facility] 02-13-2018 13:08-0400 BSA (Body Surface Area) 2.39 m2 Leda Agrawal [facility] 02-13-2018 13:08-0400 Height 153.67 cm [facility] 02-13-2018 13:08-0400 Pulse (Heart Rate) 74 /min Leda Tanja [facility] 02-13-2018 13:08-0400 Pulse Oximetry 97 % [facility] 02-13-2018 13:08-0400 Respiratory Rate 20 /min [facility] 02-13-2018 13:08-0400 Weight 133.36 kg [facility] 02-13-2018 10:08-0400 Body height 153.67 cm Leda Agrawal CNP Work Phone: [facility] Work Phone: 02-13-2018 10:08-0400 Body mass index (BMI) [Ratio] 56.5 kg/m2 Leda Agrawal CNP Work Phone: [facility] Work Phone: 02-13-2018 10:08-0400 Body surface area Derived from formula 2.21 m2 Leda Agrawal CNP Work Phone: [facility] Work Phone: 02-13-2018 10:08-0400 Body temperature 98 [degF] Leda Agrawal CNP Work Phone: [facility] Work Phone: 02-13-2018 10:08-0400 Body weight 133.36 kg Leda Agrawal CNP Work Phone: [facility] Work Phone: 02-13-2018 10:08-0400 Diastolic blood pressure 80 mm[Hg] Leda Agrawal CNP Work Phone: [facility] Work Phone: 02-13-2018 10:08-0400 Heart rate 74 /min Leda Agrawal CNP Work Phone: [facility] Work Phone: 02-13-2018 10:08-0400 Respiratory rate 20 /min Leda Agrawal CNP Work Phone: [facility] Work Phone: 02-13-2018 10:08-0400 Systolic blood pressure 124 mm[Hg] Leda Agrawal CNP Work Phone: [facility] Work Phone: 01-25-2018 12:47-0400 BMI (Body Mass Index) 56.47 kg/m2 [facility] 01-25-2018 12:47-0400 Body Temperature 98.4 [degF] [facility] 01-25-2018 12:47-0400 BP Diastolic 82 mm[Hg] [facility] 01-25-2018 12:47-0400 BP Systolic 122 mm[Hg] [facility] 01-25-2018 12:47-0400 BSA (Body Surface Area) 2.39 m2 [facility] 01-25-2018 12:47-0400 Height 153.67 cm [facility] 01-25-2018 12:47-0400 Pulse (Heart Rate) 73 /min [facility] 01-25-2018 12:47-0400 Pulse Oximetry 96 % [facility] 01-25-2018 12:47-0400 Respiratory Rate 18 /min [facility] 01-25-2018 12:47-0400 Weight 133.36 kg Leda Agrawal [facility] 01-25-2018 09:47-0400 Body height 153.67 cm Leda Agrawal CNP Work Phone: [facility] Work Phone: 01-25-2018 09:47-0400 Body mass index (BMI) [Ratio] 56.5 kg/m2 Leda Agrawal CNP Work Phone: [facility] Work Phone: 01-25-2018 09:47-0400 Body surface area Derived from formula 2.21 m2 Leda Agrawal CNP Work Phone: [facility] Work Phone: 01-25-2018 09:47-0400 Body temperature 98.4 [degF] Leda Agrawal CNP Work Phone: [facility] Work Phone: 01-25-2018 09:47-0400 Body weight 133.36 kg Leda Agrawal CNP Work Phone: [facility] Work Phone: 01-25-2018 09:47-0400 Diastolic blood pressure 82 mm[Hg] Leda Agrawal CNP Work Phone: [facility] Work Phone: 01-25-2018 09:47-0400 Heart rate 73 /min Leda Agrawal CNP Work Phone: [facility] Work Phone: 01-25-2018 09:47-0400 Respiratory rate 18 /min Leda Agrawal CNP Work Phone: [facility] Work Phone: 01-25-2018 09:47-0400 Systolic blood pressure 122 mm[Hg] Leda Agrawal CNP Work Phone: [facility] Work Phone: 11-14-2017 18:20-0400 BMI (Body Mass Index) 56.47 kg/m2 [facility] 11-14-2017 18:20-0400 Body Temperature 97.4 [degF] [facility] 11-14-2017 18:20-0400 BP Diastolic 80 mm[Hg] [facility] 11-14-2017 18:20-0400 BP Systolic 130 mm[Hg] [facility] 11-14-2017 18:20-0400 BSA (Body Surface Area) 2.39 m2 [facility] 11-14-2017 18:20-0400 Height 153.67 cm [facility] 11-14-2017 18:20-0400 Pulse (Heart Rate) 96 /min [facility] 11-14-2017 18:20-0400 Pulse Oximetry 95 % [facility] 11-14-2017 18:20-0400 Respiratory Rate 18 /min [facility] 11-14-2017 18:20-0400 Weight 133.36 kg [facility] 11-14-2017 15:20-0400 Body height 153.67 cm [facility] ESCROW REPRESENTATIVE Work Phone: [facility] Work Phone: 11-14-2017 15:20-0400 Body mass index (BMI) [Ratio] 56.5 kg/m2 [facility] ESCROW REPRESENTATIVE Work Phone: [facility] Work Phone: 11-14-2017 15:20-0400 Body surface area Derived from formula 2.21 m2 Leda Agrawal CNP Work Phone: [facility] Work Phone: 11-14-2017 15:20-0400 Body temperature 97.4 [degF] Leda Agrawal CNP Work Phone: [facility] Work Phone: 11-14-2017 15:20-0400 Body weight 133.36 kg Leda Agrawal CNP Work Phone: [facility] Work Phone: 11-14-2017 15:20-0400 Diastolic blood pressure 80 mm[Hg] Leda Agrawal CNP Work Phone: [facility] Work Phone: 11-14-2017 15:20-0400 Heart rate 96 /min Leda Agrawal CNP Work Phone: [facility] Work Phone: 11-14-2017 15:20-0400 Respiratory rate 18 /min Leda Agrawal CNP Work Phone: [facility] Work Phone: 11-14-2017 15:20-0400 Systolic blood pressure 130 mm[Hg] Leda Agrawal CNP Work Phone: [facility] Work Phone: 10-12-2017 11:11-0400 BMI (Body Mass Index) 57.12 kg/m2 Leda Agrawal [facility] 10-12-2017 11:11-0400 Body Temperature 98.8 [degF] Leda Agrawal [facility] 10-12-2017 11:11-0400 BP Diastolic 83 mm[Hg] Leda Agrawal [facility] 10-12-2017 11:11-0400 BP Systolic 122 mm[Hg] Leda Agrawal [facility] 10-12-2017 11:11-0400 BSA (Body Surface Area) 2.4 m2 [facility] 10-12-2017 11:11-0400 Height 153.67 cm [facility] 10-12-2017 11:11-0400 Pulse (Heart Rate) 79 /min [facility] 10-12-2017 11:11-0400 Pulse Oximetry 99 % [facility] 10-12-2017 11:11-0400 Respiratory Rate 18 /min [facility] 10-12-2017 11:11-0400 Weight 134.89 kg [facility] 10-12-2017 10:11-0400 BMI (Body Mass Index) 57.12 kg/m2 [facility] 10-12-2017 10:11-0400 Body Temperature 98.8 [degF] [facility] 10-12-2017 10:11-0400 BP Diastolic 83 mm[Hg] [facility] 10-12-2017 10:11-0400 BP Systolic 122 mm[Hg] [facility] 10-12-2017 10:11-0400 BSA (Body Surface Area) 2.4 m2 [facility] 10-12-2017 10:11-0400 Height 153.67 cm [facility] 10-12-2017 10:11-0400 Pulse (Heart Rate) 79 /min [facility] 10-12-2017 10:11-0400 Pulse Oximetry 99 % Leda Agrawal [facility] 10-12-2017 10:11-0400 Respiratory Rate 18 /min Leda Agrawal [facility] 10-12-2017 10:11-0400 Weight 134.89 kg Leda Agrawal [facility] 10-12-2017 08:11-0400 Body height 153.67 cm Leda Agrawal CNP Work Phone: [facility] Work Phone: 10-12-2017 08:11-0400 Body mass index (BMI) [Ratio] 57 kg/m2 Leda Agrawal CNP Work Phone: [facility] Work Phone: 10-12-2017 08:11-0400 Body surface area Derived from formula 2.22 m2 Leda Agrawal CNP Work Phone: [facility] Work Phone: 10-12-2017 08:11-0400 Body temperature 98.8 [degF] Leda Agrawal CNP Work Phone: [facility] Work Phone: 10-12-2017 08:11-0400 Body weight 134.72 kg Leda Agrawal CNP Work Phone: [facility] Work Phone: 10-12-2017 08:11-0400 Diastolic blood pressure 83 mm[Hg] Leda Agrawal CNP Work Phone: [facility] Work Phone: 10-12-2017 08:11-0400 Heart rate 79 /min Leda Agrawal CNP Work Phone: [facility] Work Phone: 10-12-2017 08:11-0400 Respiratory rate 18 /min Leda Agrawal CNP Work Phone: [facility] Work Phone: 10-12-2017 08:11-0400 Systolic blood pressure 122 mm[Hg] Leda Agrawal [facility] Work Phone: [facility] Work Phone: 09-20-2017 17:04-0400 BP Diastolic 80 mm[Hg] [facility] 09-20-2017 17:04-0400 BP Systolic 136 mm[Hg] [facility] 09-20-2017 16:19-0400 BMI (Body Mass Index) 59.21 kg/m2 [facility] 09-20-2017 16:19-0400 Body Temperature 97.1 [degF] [facility] 09-20-2017 16:19-0400 BP Diastolic 80 mm[Hg] [facility] 09-20-2017 16:19-0400 BP Systolic 142 mm[Hg] [facility] 09-20-2017 16:19-0400 BSA (Body Surface Area) 2.44 m2 [facility] 09-20-2017 16:19-0400 Height 153.67 cm [facility] 09-20-2017 16:19-0400 Pulse (Heart Rate) 94 /min [facility] 09-20-2017 16:19-0400 Pulse Oximetry 96 % [facility] 09-20-2017 16:19-0400 Respiratory Rate 18 /min [facility] 09-20-2017 16:19-0400 Weight 139.82 kg [facility] 09-20-2017 16:04-0400 BP Diastolic 80 mm[Hg] [facility] 09-20-2017 16:04-0400 BP Systolic 136 mm[Hg] [facility] 09-20-2017 15:19-0400 BMI (Body Mass Index) 59.21 kg/m2 [facility] 09-20-2017 15:19-0400 Body Temperature 97.1 [degF] [facility] 09-20-2017 15:19-0400 BP Diastolic 80 mm[Hg] [facility] 09-20-2017 15:19-0400 BP Systolic 142 mm[Hg] [facility] 09-20-2017 15:19-0400 BSA (Body Surface Area) 2.44 m2 [facility] 09-20-2017 15:19-0400 Height 153.67 cm [facility] 09-20-2017 15:19-0400 Pulse (Heart Rate) 94 /min [facility] 09-20-2017 15:19-0400 Pulse Oximetry 96 % [facility] 09-20-2017 15:19-0400 Respiratory Rate 18 /min [facility] 09-20-2017 15:19-0400 Weight 139.82 kg [facility] 09-20-2017 14:04-0400 Diastolic blood pressure 80 mm[Hg] [facility] Work Phone: [facility] Work Phone: 09-20-2017 14:04-0400 Systolic blood pressure 136 mm[Hg] Leda Agrawal CNP Work Phone: [facility] Work Phone: 09-20-2017 13:19-0400 Body height 153.67 cm Leda Agrawal CNP Work Phone: [facility] Work Phone: 09-20-2017 13:19-0400 Body mass index (BMI) [Ratio] 59.2 kg/m2 Leda Agrawal CNP Work Phone: [facility] Work Phone: 09-20-2017 13:19-0400 Body surface area Derived from formula 2.26 m2 Leda Agrawal CNP Work Phone: [facility] Work Phone: 09-20-2017 13:19-0400 Body temperature 97.1 [degF] Leda Agrawal CNP Work Phone: [facility] Work Phone: 09-20-2017 13:19-0400 Body weight 139.71 kg Leda Agrawal CNP Work Phone: [facility] Work Phone: 09-20-2017 13:19-0400 Diastolic blood pressure 80 mm[Hg] Leda Agrawal CNP Work Phone: [facility] Work Phone: 09-20-2017 13:19-0400 Heart rate 94 /min Leda Agrawal CNP Work Phone: [facility] Work Phone: 09-20-2017 13:19-0400 Respiratory rate 18 /min Leda Agrawal CNP Work Phone: [facility] Work Phone: 09-20-2017 13:19-0400 Systolic blood pressure 142 mm[Hg] Leda Agrawal CNP Work Phone: [facility] Work Phone: 09-14-2017 12:35-0400 BMI (Body Mass Index) 59.76 kg/m2 [facility] 09-14-2017 12:35-0400 Body Temperature 97 [degF] [facility] 09-14-2017 12:35-0400 BP Diastolic 72 mm[Hg] [facility] 09-14-2017 12:35-0400 BP Systolic 122 mm[Hg] [facility] 09-14-2017 12:35-0400 BSA (Body Surface Area) 2.45 m2 [facility] 09-14-2017 12:35-0400 Height 153.67 cm [facility] 09-14-2017 12:35-0400 Pulse (Heart Rate) 71 /min [facility] 09-14-2017 12:35-0400 Pulse Oximetry 97 % [facility] 09-14-2017 12:35-0400 Respiratory Rate 18 /min [facility] 09-14-2017 12:35-0400 Weight 141.13 kg [facility] 09-14-2017 11:35-0400 BMI (Body Mass Index) 59.76 kg/m2 [facility] 09-14-2017 11:35-0400 Body Temperature 97 [degF] [facility] 09-14-2017 11:35-0400 BP Diastolic 72 mm[Hg] [facility] 09-14-2017 11:35-0400 BP Systolic 122 mm[Hg] Leda Tanja [facility] 09-14-2017 11:35-0400 BSA (Body Surface Area) 2.45 m2 Leda Tanja [facility] 09-14-2017 11:35-0400 Height 153.67 cm [facility] 09-14-2017 11:35-0400 P[facility] (Heart Rate) 71 /[facility] 09-14-2017 11:35-0400 Pulse Oximetry 97 % [facility] 09-14-2017 11:35-0400 Respiratory Rate 18 /min [facility] 09-14-2017 11:35-0400 [facility] 09:35-0400 Body height 153.67 cm Leda Agrawal [facility] Work Phone: [facility] Work Phone: 09-14-2017 09:35-0400 Body mass index (BMI) [Ratio] 59.7 kg/m2 Leda Agrawal CNP Work Phone: [facility] Work Phone: 09-14-2017 09:35-0400 Body surface area Derived from formula 2.27 m2 Leda Agrawal CNP Work Phone: [facility] Work Phone: 09-14-2017 09:35-0400 Body temperature 97 [degF] Leda Agrawal ESCROW REPRESENTATIVE Work Phone: [facility] Work Phone: 09-14-2017 09:35-0400 Body weight 141.07 kg Leda Agrawal CNP Work Phone: [facility] Work Phone: 09-14-2017 09:35-0400 Diastolic blood pressure 72 mm[Hg] Leda Agrawal ESCROW REPRESENTATIVE Work Phone: [facility] Work Phone: 09-14-2017 09:35-0400 Heart rate 71 /min Leda Agrawal ESCROW REPRESENTATIVE Work Phone: [facility] Work Phone: 09-14-2017 09:35-0400 Respiratory rate 18 /min Leda Agrawal ESCROW REPRESENTATIVE Work Phone: [facility] Work Phone: 09-14-2017 09:35-0400 Systolic blood pressure 122 mm[Hg] Leda Agrawal ESCROW REPRESENTATIVE Work Phone: [facility] Work Phone: Encounters Encounter Date Encounter Type Care Provider Facility Start: 12-06-2024 ambulatory [facility] Start: 12-06-2024 End: 12-06-2024 ambulatory [facility] Start: 11-21-2024 End: 11-21-2024 ambulatory [facility] Start: 11-07-2024 End: 11-07-2024 ambulatory [facility] Start: 10-08-2024 End: 10-08-2024 ambulatory [facility] Start: 05-23-2024 End: 05-23-2024 ambulatory [facility] Start: 05-20-2024 End: 05-20-2024 ambulatory [facility] Start: 05-09-2024 End: 05-09-2024 ambulatory [facility] Start: 03-19-2024 End: 03-19-2024 Telephone encounter Keenan CHAMPION [facility] Start: 02-16-2024 End: 02-16-2024 Refill Janedebra Freemanelka CHEMIST HELPER-ESCROW REPRESENTATIVE Work Phone: [facility] GEN 6 Acute Start: 01-31-2024 End: 01-31-2024 Bamboo flowsheet Erica Pompa BATTERY SERVICE TECHNICIAN Work Phone: [facility] Start: 01-31-2024 End: 01-31-2024 Bamboo flowsheet Erica Pompa BATTERY SERVICE TECHNICIAN Work Phone: [facility] Start: 01-31-2024 End: 01-31-2024 Office outpatient visit 10 minutes Erica Siddiquitrick BATTERY SERVICE TECHNICIAN Work Phone: [facility] Comment on above: Chronic obstructive pulmonary disease with acute exacerbation (CMS/HCC) (Primary Dx); Chronic rhinitis; Bipolar depression ([facility]); ADORE (obstructive sleep apnea); Pulmonary emphysema, unspecified emphysema type ([facility]/HCC) Start: 01-31-2024 End: 01-31-2024 Refill Janedebra Freemanelka CHEMIST HELPER-ESCROW REPRESENTATIVE Work Phone: [facility] GEN 6 Acute Start: 01-31-2024 End: 01-31-2024 ambulatory ERICA POMPA Not Available Start: 01-29-2024 End: 01-29-2024 Refill Erica Pompa BATTERY SERVICE TECHNICIAN Work Phone: [facility] Comment on above: ARSH (generalized anx iety disorder) ([facility]) Start: 01-29-2024 End: 01-29-2024 Refill Jane L Veselka CHEMIST HELPER-ESCROW REPRESENTATIVE Work Phone: [facility] GEN 6 Acute Start: 01-22-2024 End: 01-22-2024 ambulatory [facility] Start: 01-15-2024 End: 01-15-2024 Office outpatient visit 40 minutes [facility] CHEMIST HELPER-ESCROW REPRESENTATIVE Work Phone: [facility] Comment on above: ERIN (acute kidney in jury) ([facility]) (Primary Dx); 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 ([facility]) ; Hypovitaminosis D; Hypomagnesemia; Primary hypertension; Nephrotic range proteinuria Start: 01-12-2024 End: 01-12-2024 ambulatory [facility] Start: 01-04-2024 End: 01-04-2024 Telephone encounter Scanning Provider External [facility] Start: 01-02-2024 End: 01-02-2024 Orders Only Shazia La RN [facility] Comment on above: 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 (Primary Dx) Start: 12-19-2023 End: 12-19-2023 [facility] Start: 11-29-2023 End: 11-29-2023 ambulatory [facility] Comment on above: 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 (Primary Dx) Start: 11-14-2023 End: 11-14-2023 Orders Only Shazia La RN [facility] Comment on above: 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 (Primary Dx) Start: 11-13-2023 End: 11-13-2023 Orders Only Shazia La RN [facility] Start: 11-07-2023 End: 11-07-2023 [facility] Comment on above: 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 [facility] Start: 10-14-2023 End: 10-19-2023 Emergency department patient visit ALEXIS Olguin LEXI [facility] Start: 10-14-2023 End: 10-18-2023 Evaluation and management of inpatient NOT IN SYSTEM [facility] Comment on above: ERIN (acute kidney in jury) ([facility]) (Primary Dx); Hypertensive urgency; Hypokalemia; Elevated brain natriuretic peptide (BNP) level Start: 04-26-2023 End: 04-26-2023 ambulatory LINARES JHONY Not Available Start: 04-15-2022 End: 04-17-2022 ambulatory QUYNH ARCHER Facility:H1 Start: 02-08-2022 End: 02-09-2022 ambulatory NANCI BEEBE Facility:H1 Start: 12-30-2021 End: 12-31-[address] VU RIVERA Facility:H1 Start: 01-20-2020 End: 01-23-2020 Patient encounter procedure [facility] Start: 01-20-2020 End: 01-22-2020 Subsequent hospital visit by physician Roman Palacio Dr Room 4 [facility] Radiology Comment on above: Chronic bilateral lo w back pain without sciatica Chronic neck pain; Chronic bilateral low back pain without sciatica Start: 07-31-2018 Patient encounter procedure Heath Kirkpatrick Facility:[id number] Start: 07-20-2018 End: 07-20-2018 General Leda Agrawal CNP Work Phone: [facility] Work Phone: Start: 02-13-2018 End: 02-13-2018 Patient encounter procedure Leda Agrawal CNP Work Phone: [facility] Work Phone: Start: 02-13-2018 Office outpatient vi sit 15 minutes Leda Agrawal Other [facility] Start: 01-25-2018 End: 01-25-2018 Patient encounter procedure Leda Agrawal CNP Work Phone: [facility] Work Phone: Start: 01-25-2018 Office outpatient vi sit 15 minutes Leda Agrawal Other [facility] Start: 11-14-2017 Office outpatient vi sit 15 minutes Leda Agrawal Other [facility] Start: 11-14-2017 End: 11-14-2017 Patient encounter procedure Leda Agrawal ESCROW REPRESENTATIVE Work Phone: [facility] Work Phone: Start: 10-12-2017 End: 10-12-2017 Patient encounter procedure Leda Agrawal ESCROW REPRESENTATIVE Work Phone: [facility] Work Phone: Start: 10-12-2017 End: 10-12-2017 Office outpatient visit 15 minutes Leda Agrawal Other [facility] Start: 10-12-2017 Polysom 6/>yrs sleep 4/> addl nicky attnd [facility] Start: 10-12-2017 Polysom 6/>yrs sleep w[facility]cpap 4/> [facility] Start: 09-20-2017 End: 09-20-2017 Office outpatient visit 15 minutes Leda Agrawal Other [facility] Start: 09-20-2017 End: 09-20-2017 Patient encounter procedure Leda Agrawal ESCROW REPRESENTATIVE Work Phone: [facility] Work Phone: Start: 09-14-2017 End: 09-14-2017 Patient encounter procedure Leda Agrawal ESCROW REPRESENTATIVE Work Phone: [facility] Work Phone: Start: 09-14-2017 Laboratory examinati on, unspecified Leda Agrawal [facility] Start: 09-14-2017 Colonoscopy w/biopsy single/multiple Leda Agrawal [facility] Start: 09-14-2017 Dxa bone density kourtney dy 1/> [facility] Start: 09-14-2017 End: 09-14-2017 Office outpatient new 45 minutes Leda Agrawal Other [facility] Procedures Date Procedure Procedure Detail Performing Clinician Start: 10-19-2023 Adult depression scr eening assessment Shazia La RN Start: 10-18-2023 POCT IONIZED CALCIUM Axel Jewell MD Work Phone: Start: 10-18-2023 Comprehensive metabo lic panel Kristina Travis CHEMIST HELPER-Toxic Attire Work Phone: Start: 10-17-2023 Potassium serum plas ma/whole blood Elva Man MD Work Phone: Start: 10-17-2023 Blood occult peroxid ase actv qual feces 1-3 spec Nataliia Cohen CHEMIST HELPER-ESCROW REPRESENTATIVE Work Phone: Start: 10-17-2023 Pulmonary ventilatio n & perfusion imaging Nataliia Cohen CHEMIST HELPER-ESCROW REPRESENTATIVE Work Phone: Start: 10-17-2023 End: 10-17-2023 Comprehensive metabolic panel Kristina Travis CHEMIST HELPER-ESCROW REPRESENTATIVE Work Phone: Start: 10-16-2023 Fibrin dgradj produc [...] wom-mode compl spec&colr d Antione D Krotzer CHEMIST HELPER-ESCROW REPRESENTATIVE Work Phone: Start: 10-16-2023 End: 10-16-2023 Potassium serum plasma/whole blood Dre Jewell MD Work Phone: Start: 10-16-2023 Us retroperitoneal r eal time w/image complete Fran Wild MD Work Phone: Start: 10-16-2023 End: 10-16-2023 Comprehensive metabolic panel Kristina Robles CHEMIST HELPER-ESCROW REPRESENTATIVE Work Phone: Start: 10-16-2023 CLINICAL PATHOLOGY Alhaji [...] Phone: Start: 10-15-2023 BIPAP/CPAP/AUTOPAP Antione Hernández Kulwinderdeirdre CHEMIST HELPER-ESCROW REPRESENTATIVE Work Phone: Start: 10-15-2023 Comprehensive metabo lic panel Kristina Robles CHEMIST HELPER-ESCROW REPRESENTATIVE Work Phone: Start: 10-14-2023 Radiologic exam ches [...] son RN Start: 02-25-2019 Mammography Erica henderson BATTERY SERVICE TECHNICIAN Work Phone: Start: 08-10-2018 Follow-up visit Start: [...] 10-13-2029 Screening for malignant neoplasm of colon [facility] Start: 01-14-2025 Adult BMI Screening Adult BMI Screening [facility] Start: 11-28-2024 Adult BMI Screening Adult BMI Screening [facility] Start: 11-28-2024 Tobacco Screening Tobacco Screening [facility] Start: 10-24-2024 Adult BMI Screening Adult BMI Screening [facility] Start: 10-18-2024 Depression Screening Depression Screening [facility] Start: 10-18-2024 Tobacco Screening Tobacco Screening [facility] Start: 10-13-2024 Screening for malignant neoplasm of colon Colonoscopy [facility] Start: 03-25-2024 End: 03-25-2024 Patient encounter procedure 03/25/2024 10:30 AM EST Office Visit [facility] [address] [place] [address] Fran Wild MD [address] [place] [address] [facility] Start: 02-06-2024 End: 02-06-2024 Patient encounter procedure 02/06/2024 1:30 PM EDT Office Visit [facility] [address] [place] [phone] Erica Pompa, BATTERY SERVICE TECHNICIAN [address] [place] [phone] [facility] Start: 01-31-2024 End: 01-31-2024 Patient encounter procedure 01/31/2024 2:00 PM EDT Office Visit [facility] [address] [place] [phone] Erica Pompa, BATTERY SERVICE TECHNICIAN [address] [place] [phone] Arrived [facility] Comment on above: Arrived Start: 01-31-2024 End: 01-30-2025 XR Chest 2 Views XR chest 2 views Imaging Routine Chronic obstructive pulmonary disease with acute exacerbation (CMS/HCC) Expected: 01/31/2024, Expires: 01/30/2025 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 Work Phone: Comment on above: Expected: 01/22/2024 (Approximate), Expi res: 01/14/2025 Start: 12-24-2023 Influenza vaccination [facility] Start: 12-06-2023 End: 12-06-2023 ambulatory 12/06/2023 10:00 AM EDT Infusion Sylviajesika [facility]ay[facility] [address] [place] [address] Sylvia [facility]ayas [facility] Start: 01-30-2021 COVID-19 Vaccine (2 - Roxanne risk series) COVID-19 Vaccine (2 - Roxanne risk series) [facility] Start: 04-30-2020 End: 04-30-2020 Office Visit 04/30/2020 Office Visit Neurology Tim Sharma MD [address] [place] [address] [address] [place] [address] [facility] Start: 02-26-2020 Screening for malignant neoplasm of breast Mammogram [facility] Start: 12-24-2019 Influenza vaccination Flu vaccine (#1) [employer] [place] Start: 08-31-2019 Screening for malignant neoplasm of lung Low dose CT lung screening [employer] Start: 02-13-2019 Creatinine measurement Creatinine monitoring [place], [place] Start: 11-30-2018 Potassium monitoring Potassium monitoring [employer] Start: 11-08-2018 Lipid panel Lipid screen [employer] Start: 08-02-2018 [facility]QHC visit, estab pt Established Patient [facility] Work Phone: Start: 10-12-2017 Polysom 6/>yrs sleep 4/> addl nicky attnd Polysomnography with CPAP testing [facility] Start: 10-12-2017 Polysom 6/>yrs sleep w/cpap 4/> addl nicky attnd Polysomnography with CPAP testing [facility] Start: 09-14-2017 Dual energy X-ray photon absorptiometry DEXA scan for body composition study [facility] Start: 08-22-2016 Screening for malignant neoplasm of breast Breast cancer screen [employer] Start: 01-24-2016 Screening for malignant neoplasm of cervix Cervical cancer screen [employer] Start: 2014 Screening for malignant neoplasm of colon Colon cancer screen colonoscopy [employer] Start: 2014 Shingles Vaccine (1 of 2) Shingles Vaccine (1 of 2) [employer] Start: 1994 Screening for malignant neoplasm of cervix [facility] Start: 1985 Screening for malignant neoplasm of cervix Pap Smear [facility] Start: 08-31-1983 Administration of varicella zoster vaccine Zoster (Shingles) Vaccine (1 of 2) [facility] Start: 08-31-1983 DTaP,Tdap and Td Vaccines (1 - Tdap) DTaP,Tdap and Td Vaccines (1 - Tdap) [facility] Start: 08-31-1983 DTaP/Tdap/Td vaccine (1 - Tdap) DTaP/Tdap/Td vaccine (1 - Tdap) [employer] [place] Start: 1982 Adult BMI Follow Up Plan Adult BMI Follow Up Plan [facility] Start: 08-31-1979 HIV screening HIV screen [employer] Start: 1970 Pneumococcal 0-64 years Vaccine (1 of 1 - PPSV23) Pneumococcal 0-64 years Vaccine (1 of 1 - PPSV23) [employer], [place] Start: 1964 Hepatitis C screening Hepatitis C screen [employer] Start: 1964 Screening for malignant neoplasm of colon [facility] Start: 1964 Tobacco Counseling Tobacco Counseling [facility] Basement membrane Ig G Ab [Units/volume] in Serum Glomerular Basement Membrane IgG, Serum Lab Routine 10/18/2023 11:37 AM EDT [facility] Basic metabolic 2000 panel - Serum or Plasma Basic Metabolic Panel Lab Routine Lab max of 3 days, Daily, for lab use only until discontinued starting 10/16/2023 [facility] Comment on above: Lab max of 3 days, Daily, for lab use on ly until discontinued starting 10/16/2023 End: 01-01-2025 Basic metabolic 2000 panel - Serum or Plasma Basic Metabolic Panel Lab Routine 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 1 Occurrences starting 01/02/2024 until 01/01/2025 [facility] Comment on above: 1 Occurrences starting 01/02/2024 until 01/01/2025 BiPAP/CPAP/AutoPAP BiPAP/CPAP/Au toPAP Respiratory Care Routine Every 12 hour check until discontinued starting 10/15/2023, 1 completed [employer] Work Phone: Comment on above: Every 12 hour check until discontinued s tarting 10/15/2023, 1 completed CBC panel - Blood by Automated count CBC without diff Lab Routine Lab max of 3 days, Daily, for lab use only until discontinued starting 10/16/2023 [employer] 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 1 Occurrences starting 01/02/2024 until 01/01/2025 [facility] Comment on above: 1 Occurrences starting 01/02/2024 until 01/01/2025 CBC W Auto Different ial panel - Blood CBC auto differential Lab Routine Lab max of 3 days, Daily, for lab use only until discontinued starting 10/15/2023, 4 completed [facility] Comment on above: Lab max of 3 days, Daily, for lab use on ly until discontinued starting 10/15/2023, 4 completed Comprehensive metabo lic 2000 panel - Serum or Plasma Comprehensive metabolic panel Lab Routine Lab max of 3 days, Daily, for lab use only until discontinued starting 10/15/2023, 4 completed [facility] Comment on above: Lab max of 3 days, Daily, for lab use on ly until discontinued starting 10/15/2023, 4 completed End: 10-15-2023 Cryoglobulin W/ Identification [facility] Comment on above: Once for 1 Occurrences starting 10/15/19 until 10/15/2023 End: 10-18-2023 Glomerular Basement Membrane IgG, Serum Glomerular Basement Membrane IgG, Serum Lab Routine Once for 1 Occurrences starting 10/18/2023 until 10/18/2023 [employer] Work Phone: Comment on above: Once for 1 Occurrences starting 10/18/19 until 10/18/2023 Ionized calcium Ionized calcium Lab Routine Lab max of 3 days, Daily, for lab use only until discontinued starting 10/16/2023 [facility] Comment on above: Lab max of 3 days, Daily, for lab use on ly until discontinued starting 10/16/2023 Magnesium [Mass/volu me] in Serum or Plasma Magnesium Lab Routine Lab max of 3 days, Daily, for lab use only until discontinued starting 10/15/2023, 4 completed [facility] Comment on above: Lab max of 3 days, Daily, for lab use on ly until discontinued starting 10/15/2023, 4 completed End: 01-01-2025 Magnesium [Mass/volume] in Serum or Plasma Magnesium Lab Routine 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 1 Occurrences starting 01/02/2024 until 01/01/2025 [facility] Comment on above: 1 Occurrences starting 01/02/2024 until 01/01/2025 End: 10-18-2023 Myeloperoxidase Antibodies, IgG, Serum Myeloperoxidase Antibodies, IgG, Serum Lab Routine Once for 1 Occurrences starting 10/18/2023 until 10/18/2023 [facility] Comment on above: Once for 1 Occurrences starting 10/18/19 until 10/18/2023 Myeloperoxidase IgG Ab [Units/volume] in Serum Myeloperoxidase Antibodies, IgG, Serum Lab Routine 10/18/2023 11:37 AM EDT [facility] Oxygen Therapy - Maintain SpO2: 90%; *DENSITY CONTROL PUNCHER Guidelines for O2: Yes; Document: \[email or web address]\epi c\EPIC_Reference\Orders\ Respiratory Care Guidelines\CPG Oxygen 2022.pdf Oxygen Therapy - Maintain SpO2: 90%; *DENSITY CONTROL PUNCHER Guidelines for O2: Yes; Document: \[email or web address]\epic\ EPIC_Reference\Orders\Resp iratory Care Guidelines\CPG Oxygen 2022.pdf Respiratory Care Routine As Needed until discontinued starting 10/15/2023 [employer] 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 1 Occurrences starting 01/02/2024 until 01/01/2025 [facility] Comment on above: 1 Occurrences starting 01/02/2024 until 01/01/2025 Phosphate [Mass/volu me] in Serum or Plasma Phosphorus Lab Routine Lab max of 3 days, Daily, for lab use only until discontinued starting 10/16/2023, 3 completed [facility] Comment on above: Lab max of 3 days, Daily, for lab use on ly until discontinued starting 10/16/2023, 3 completed End: 01-01-2025 Phosphate [Mass/volume] in Serum or Plasma Phosphorus Lab Routine 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 1 Occurrences starting 01/02/2024 until 01/01/2025 [facility] Comment on above: 1 Occurrences starting 01/02/2024 until 01/01/2025 End: 01-01-2025 Protein creat ratio Protein creat ratio Lab Routine 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 1 Occurrences starting 01/02/2024 until 01/01/2025 [facility] Comment on above: 1 Occurrences starting 01/02/2024 until 01/01/2025 Protein electrophore sis, urine Protein electrophoresis, urine Lab Routine 10/16/2023 10:37 AM EDT [facility] End: 01-01-2025 Urinalysis Urinalysis Lab Routine 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 1 Occurrences starting 01/02/2024 until 01/01/2025 [facility] Comment on above: 1 Occurrences starting 01/02/2024 until 01/01/2025 End: 01-01-2025 Vitamin D 25 hydroxy Vitamin D 25 hydroxy Lab Routine 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 1 Occurrences starting 01/02/2024 until 01/01/2025 [facility] Comment on above: 1 Occurrences starting 01/02/2024 until 01/01/2025 Immunizations Immunization Date Immunization Notes Care Provider Fa cility 01-02-2021 COVID-19 Vaccine, vector-nr, rS-Ad26, PF, 0.5mL Isma Hayward MD Work Phone: [facility] Payers Date Payer Category Payer Medicaid HMO [facility] MEDICAID Member Subscriber Plan / Payer (Effective 2022-Present) Name: Danielle Montana Relation to Subscriber: Self Name: Danielle Montana Payer ID: [id number] (NAIC) Group ID: [id number] Type: Not on file Address: [place] [id number] 2022 Private Health Insurance [facility] [id number] 2022-Present [phone] [address] [place] [phone] [id number] 2022 Medicaid [id number] 2017 Medicaid [id number] 1959 Private Health Insurance [id number] [id number] 1964 Unknown [id number] 2.16.840.1.067076.3.579. 2.356 1964 Unknown [id number] 2.16.840.1.756659.3.579. 2.173 1964 Unknown [id number] 2.16.840.1.982968.3.579. 2.173 1964 Unknown [id number] 2.16840.1.057373.3.579. 2.173 1964 Unknown [id number] 2.16.840.1.627649.3.579. 2.593 1964 Unknown [id number] 2.16.840.1.883721.3.579. 2.593 1964 Unknown [id number] 2.16.840.1.879485.3.579. 2.593 1964 Unknown [id number] 2.16.840.1.145531.3.579. 2.1286 1964 Unknown [id number] 2.16.840.1.250506.3.579. 2.6 1964 Unknown [id number] 2.16.840.1.822306.3.579. 2.1285 1964 Unknown [id number] 2.16.840.1.860946.3.579. 2.1285 1964 Unknown [id number] 2.16.840.1.153754.3.579. 2.128 1964 Unknown [id number] 2.16.840.1.453603.3.579. 2.1285 1964 Unknown [id number] 2.16.840.1.035348.3.579. 2.1285 1964 Unknown [id number] 2.16.840.1.734978.3.579. 2.1285 1964 Unknown [id number] 2.16.840.1.540612.3.579. 2.128 1964 Unknown [id number] 2.16.840.1.487154.3.579. 2.1285 1964 Unknown [id number] 2.16.840.1.285505.3.579. 2.9 1964 Unknown [id number] 2.16.840.1.726356.3.579. 2.1259 1964 Unknown [id number] 2.16.840.1.081655.3.579. 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 alcohol (finding) [employer] Start: 1965 Sex Assigned At Not on file [place] Exposure to SARS-CoV -2 (event) Not sure [employer] Tobacco smoking status Unknown if ever sm [facility] Work Phone: History of tobacco use Passive smoker [facility] Start: 11-02-2023 Alcoholic beverage intake Lifetime non-drinker (finding) [facility] Start: 06-04-2020 End: 11-02-2023 Tobacco use panel [facility] Start: 10-15-2023 End: 01-15-2024 Alcoholic beverage intake Ex-drinker (finding) [facility] Has the [employer], or [employer] threatened to shut off services in your home in past 12Mo No [facility] How often to you hav e a drink containing alcohol? Never [facility] Average Number of Drinks Not on file [facility] How often to you hav e a drink containing alcohol? Monthly or less [facility] How many standard drinks containing alcohol do you have on a typical day? 1 or 2 [facility] Start: 11-27-2014 Sex Female (finding) [facility] Goals Date Patient Goal Desired Activity [...] List Diagnosis Date Noted Anxiety 11/06/2023 Cancer ([facility]) 11/06/2023 Cervical cancer ([facility]) 11/06/2023 Morbid obesity ([facility]) 11/06/2023 Cluster headache 11/06/2023 Degenerative arthritis 11/06/2023 Dry mouth 11/06/2023 Heartburn 11/06/2023 Joint pain 11/06/2023 Mouth sores 11/06/2023 MRSA (methicillin resistant Staphylococcus aureus) 11/06/2023 Nausea 11/06/2023 Osteoporosis 11/06/2023 Back pain 11/06/2023 Other chest pain 11/06/2023 SOB (shortness of breath) 11/06/2023 Stiff muscles 11/06/2023 Swollen ankles 11/06/2023 Weakness 11/06/2023 Emphysema of lung ([facility]) 11/02/2023 Class 3 severe obesity due to excess calories without serious comorbidity in adult 11/02/2023 Depression 11/02/2023 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 10/31/2023 Microscopic polyangiitis ([facility]/HCC) 10/27/2023 B12 deficiency 10/17/2023 Iron deficiency anemia secondary to inadequate dietary iron intake 10/17/2023 Abnormal fasting glucose 10/16/2023 LUTHER (iron deficiency anemia) 10/16/2023 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, psychotic disturbance, mood disturbance, or anxiety ([facility]) 10/16/2023 Right knee pain 10/16/2023 Tear of articular cartilage of right knee, current, initial encounter 10/16/2023 ERIN (acute kidney injury) 10/15/2023 Edema of both lower extremities 10/15/2023 Mixed hyperlipidemia 10/15/2023 Hypokalemia 10/15/2023 Bipolar depression ([facility]) 04/26/2023 Chronic rhinitis 04/26/2023 Hyperlipidemia 04/26/2023 Non-recurrent acute suppurative otitis media of both ears without spontaneous rupture of tympanic membranes 04/26/2023 Hyperglycemia, drug-induced 12/26/2020 ADORE (obstructive sleep apnea) 12/26/2020 COPD with acute exacerbation ([facility]) 12/25/2020 Urinary tract infection 02/03/2019 Acute respiratory failure with hypoxia and hypercarbia ([facility]) 01/22/2019 Memory change 02/13/2018 Pneumonia of both lungs due to infectious organism 07/14/2017 Peripheral visual field defect, bilateral 05/31/2017 Visual hallucination 05/31/2017 ARSH (generalized anxiety disorder) 04/13/2017 Open angle with borderline findings and high glaucoma risk in both eyes 01/25/2017 Astigmatism, regular 12/15/2016 Hyperopia 12/15/2016 Presbyopia 12/15/2016 PAD (peripheral artery disease) 12/07/2016 Chest pain on exertion 11/11/2016 Chronic obstructive pulmonary disease ([facility]) 06/07/2016 DNS (deviated nasal septum) 06/07/2016 Dysphonia 06/07/2016 Henry's edema of vocal folds 06/07/2016 Smoking 06/07/2016 Tinnitus of right ear 06/07/2016 Tongue lesion 06/03/2016 Cellulitis of left hand 11/15/2015 Essential hypertension 04/20/2015 Morbid (severe) obesity due to excess calories ([facility]) 11/08/2013 Dysthymic disorder 11/08/2013 Fibromyalgia, primary 11/08/2013 Gastroesophageal reflux disease 01/19/2012 Abnormal cardiovascular stress test 11/19/2024 Abnormal findings on diagnostic imaging of heart and coronary circulation 11/19/2024 Allergies: Allergies[2] RUSSIAN RUBBER/Current Medications: Prescriptions Prior to Admission[3] Current Medications[4] [...] and agreed to proceed. Abram Man PGY-4 Authorization Nurse [facility] [1] Past Medical History: Diagnosis Date Abnormal ECG Cancer (CMS/HCC) CHF (congestive heart failure) (CMS/HCC) COPD (chronic obstructive pulmonary disease) (CMS/HCC) Hypertension RLS (restless legs syndrome) Sleep apnea [2] Allergies Allergen Reactions Pregabalin Other and Unknown Mental changes Codeine GI intolerance and Nausea And Vomiting Other reaction(s): Nausea And Vomiting Sulfamethoxazole-Trimethoprim Hives [3] Medications Laurita (more content not included)... [facility] 12-06-2024 Note No associated orders from this encounter found during lookback period of 72 hours. [facility] 10-08-2024 Note [facility] Cardiology Clinic Note Chief Complaint: Patient [...] Bumex 1 mg (more content not included)... [facility] 05-20-2024 Note [facility] Cardiology Clinic Note Chief Complaint: Patient here for follow up [facility] for acute CHF. She was discharged from [facility] on losartan and amlodipine but she says she was never provided with RX's for these. She used to see [facility] cardiology back in 2020 for chest pain [...] problems arise Mehrdad Mccormick MD, MPH, FACC, [facility], [facility] Interventional Cardiology Pager Email: [email or web address] Addendum: The patient is in need of a blood pressure cuff to measure her blood pressure at home and to keep an accurate log. Mehrdad Mccormick MD, MPH, FACC, F (more content not included)... [facility] 03-19-2024 Miscellaneous Notes Called patient and left a voicemail to confirm their upcoming appt on 03/25/24 in [place] with Fran Wild MD. The patient was instructed to call our office back to further confirm: [phone] documented in this encounter [facility] 03-19-2024 Telephone encounter Note Called patient and left a voicemail to confirm their upcoming appt on 03/25/24 in [place] with Fran Wild MD. The patient was instructed to call our office back to further confirm: [phone] [facility] 01-31-2024 History of Present illness Narrative Associated Problem(s): Chronic obstructive pulmonary disease ([facility]) Poorly controlled COPD. Currently taking Trelegy [...] pt to have CXR completed YVAN. Phoned [facility] radiology to call with results. Advised pt if dyspnea, chest pain, dizziness, or worsening symptoms occur to report to ER immediately. Pt verbalized understanding. Pt was following with Pulmonology in [place] 2 years ago, needs established with new Grinder Set Up Operator Jig. Has hx of ADORE- does not wear [...] Sore throat Was previously seeing Pulmonology in [place], has not been seen in 2 years. Needs to establish with new cambering machine operator. Review of Systems Constitutional: Negative for [...] Addressed This Visit Chronic obstructive pulmonary disease ([facility]) - Primary Poorly controlled COPD. Currently [...] understanding. Pt was following with Pulmonology in [place] 2 years ago, needs established with new Grinder Set Up Operator Jig. Has hx of ADORE- does not wear [...] (ZyrTEC) 10 MG tablet Emphysema of lung ([facility]) Relevant Orders Ambulatory referral to Pulmonology documented in this encounter [facility] 01-31-2024 Instructions Erica Pompa NP - 01/31/2024 2:00 PM EDT Start and finish all medications as prescribed. Have chest X ray completed YVAN Referral sent to pulmonology-Dr. Warner They will call you. If you do not hear from them within 2 weeks, call my office. Worsening shortness of breath, chest pain, gasping for air, dizziness, GO TO ER!!!! documented in this encounter [facility] 01-15-2024 History of Present illness Narrative [...] History: Diagnosis Date ERIN (acute kidney injury) ([facility]) 10/18/2023 Anxiety Back pain Cancer ([facility]) cervical cancer approx 1994 Cervical cancer ([facility]) Chest pain Cluster headache COPD (chronic obstructive pulmonary disease) ([facility]) Degenerative arthritis Depression Dry mouth Emphysema Emphysema of lung ([facility]) Fibromyalgia Fibromyalgia, primary GERD (gastroesophageal reflux disease) Heartburn Hypertension Joint pain Morbid obesity ([facility]) Mouth sores MRSA (methicillin resistant Staphylococcus aureus) Nausea Obesity Osteoporosis PAD (peripheral artery disease) ([facility]) PVD (peripheral vascular disease) ([facility]) Sleep apnea cpap SOB (shortness of breath) Stiff muscles Swollen ankles Weakness Surgical History: Past Surgical History: Procedure Laterality Date ABDOMINAL SURGERY BILATERAL SI JOINT INJECTION #1 Bilateral 11/07/2016 Performed by Mony Klein MD at [facility] COLONOSCOPY N/A 10/14/2019 Performed by Eben Lindsay DO at [facility] Coronary angiogram and left ventricular gram/pressure N/A 11/18/2016 Performed by Bobby Stanton MD at [facility] CARDIAC CATH LABS HYSTERECTOMY 06/22/1998 INCISION AND DRAINAGE and irrigation w/Drain LEFT HAND and left elbow Left 11/16/2015 Performed by Kt Ann MD at [facility] TOE AMPUTATION Social History: Social History [...] 10/15/2023 IRONSAT 16 07/17/2017 FERRITIN 45 10/15/2023 [id number] 159 (L) 10/15/2023 [id number] 391 08/15/2014 FOLATE 10.3 10/15/2023 FOLATE 7.6 [...] (Answering service). BRUCE Landon [facility] This note was created with the assistance of a speech-recognition program. Although the intention is to generate a document that actually reflects the content of the visit, no guarantees can be provided that every mistake has been identified and corrected by editing. BRUCE Landon 01/15/24 1530 BRUCE Landon 01/15/24 1531 documented in this encounter [facility] 01-04-2024 Miscellaneous Notes ----- Message from GAMAL Mccray sent at 01/02/2024 1:46 PM EDT ----- This patient will need added to next weeks add on clinic. She was never seen after hospital d/c in October and she is on rituxan. Ill put her labs in Shazia Pinto LM to schedule f/u. documented in this encounter [facility] 01-04-2024 Telephone encounter Note ----- Message from GAMAL Mccray sent at 01/02/2024 1:46 PM EDT ----- This patient will need added to next weeks add on clinic. She was never seen after hospital d/c in October and she is on rituxan. Ill put her labs in Shazia Pinto [facility] 01-04-2024 Telephone encounter Note LM to schedule f/u. [facility] 11-29-2023 History of Present illness Narrative Pt [...] condition. documented in this encounter [facility] 10-18-2023 Plan of care note Problem: Pain Goal: Patient goal is pain score less than 4, able to rest, and participant in treatment plan as appropriate Description: INTERVENTIONS: 1. Encourage patient or legal instruments sales representative to report early pain and [...] per policy 9. Teach patient or legal instruments sales representative interventions for comforting Outcome: Progressing [...] at the bedside 7. Instruct patient/ patient instruments sales representative about use of safety devices 8. Include patient/ patient instruments sales representative in decisions related to safety Outcome: Progressing Note: Evaluation of progress towards goal: call light within reach, bed to lowest position [facility] 10-18-2023 Miscellaneous Notes Problem: Pain Goal: Patient goal is pain score less than 4, able to rest, and participant in treatment plan as appropriate Description: INTERVENTIONS: 1. Encourage patient or legal instruments sales representative to report early pain and [...] per policy 9. Teach patient or legal instruments sales representative interventions for comforting Outcome: Progressing [...] at the bedside 7. Instruct patient/ patient instruments sales representative about use of safety devices 8. Include patient/ patient instruments sales representative in decisions related to safety Outcome: Progressing Note: Evaluation of progress towards goal: call light within reach, bed to lowest position DISCHARGE PLANNING NOTE Danielle Montana Lumber Material Handler conducted a visit at patient bedside. Patient ws updated on transfer process. We discussed that we did find her a new physician, Shawn Zamora in [place], [place]. It is on patient's AVS for time of discharge. Patient Discharge Plan: Home with self care. New physician will be Dr. Shawn Zamora in [place], [place]. [phone]. Patient is to call at time of [...] that there are some limitations compared to [id number]-yswx evaluations. We elected to proceed. Nephrology Daily [...] dapsone and atovaquone are not available in [facility]. Patient is allergic to Bactrim. 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 Once the patient is at [facility] will start PJP prophylaxis with atovaquone 0 or dapsone. Strict Is&Os. Do not start anticoagulation or antiplatelet therapy without notify Nephrology as patient will need kidney biopsy Irving Flores M.D. [facility] Thank you for your consultation and allowing us to participate in the care of Danielle Montana and please do not hesitate to call us with any questions at: Office: [phone] Office Answering Service: [phone] Please feel free to contact me through [employer] Secure chat during the daytime hours, if [...] Description: INTERVENTIONS: 1. Encourage patient or legal instruments sales representative to report early pain and [...] per policy 9. Teach patient or legal instruments sales representative interventions for comforting Outcome: Progressing [...] at the bedside 7. Instruct patient/ patient instruments sales representative about use of safety devices 8. Include patient/ patient instruments sales representative in decisions related to safety Outcome: Progressing Note: Evaluation of progress towards goal: PT is free of falls, hourly rounding is completed, area is kept clear. Problem: Knowledge Deficit Goal: Patient/patient instruments sales representative demonstrates understanding of disease process, [...] at the bedside 7. Instruct patient/ patient instruments sales representative about use of safety devices 8. Include patient/ patient instruments sales representative in decisions related to safety Outcome: Progressing Note: Evaluation of progress towards goal: Pt oriented to own abilities. Adequate lighting, area clear of hazards. Problem: Knowledge Deficit Goal: Patient/patient instruments sales representative demonstrates understanding of disease process, [...] =/> 25 or indicated by [facility] Assessment Goal: Patient should be free from fall Description: Interventions: 1. [place] to environment 2. Hourly rounds addressing the [...] non-skid footwear 11. Teach patient and patient instruments sales representative to maintain environment for safety [...] (cane, walker) within reach 19. Request patient instruments sales representative bring adaptive equipment/mobility aids from home or obtain and provide as needed 20. Consult pharmacy regarding effects of med's affecting mobility, cognition, and alternatives 21. Obtain physician order for PT if risk factors associated with mobility are present 22. Obtain physician order for OT as appropriate 23. Utilize diversional activities 24. Educate patient and patient instruments sales representative how to maintain a safe environment during visitation times (notify nurse prior to leaving bedside) 25. Consider appropriateness of medical or non-er medical technician 26. Set up voiding schedule as appropriate [...] that there are some limitations compared to zkve-cx-eogp evaluations. We elected to proceed. Nephrology Daily [...] ratio is 4.7 g/g. SAUL is pending. Udyb-odomfm-eccsmikz DNA is pending. Anca is pending. Glomerular [...] workup Irving Flores M.D. [facility] Thank you for your consultation and allowing us to participate in the care of Danielle Montana and please do not hesitate to call us with any questions at: Office: [phone] Office Answering Service: [phone] Please feel free to contact me through [employer] Secure chat during the daytime hours, if [...] Description: INTERVENTIONS: 1. Encourage patient or legal instruments sales representative to report early pain and [...] per policy 9. Teach patient or legal instruments sales representative interventions for comforting Outcome: Progressing [...] at the bedside 7. Instruct patient/ patient instruments sales representative about use of safety devices 8. Include patient/ patient instruments sales representative in decisions related to safety Outcome: Progressing Note: Evaluation of progress towards goal: Patient will remain safe and free from injury. Problem: Low Risk Fall Score Description: Flores Fall Score of 0 - 24 or indicated by [facility] Assessment Goal: Patient should be free from fall Description: Interventions: 1. [place] to environment 2. Hourly rounds addressing the [...] non-skid footwear 11. Teach patient and patient instruments sales representative to maintain environment for safety [...] at the bedside 7. Instruct patient/ patient instruments sales representative about use of safety devices 8. Include patient/ patient instruments sales representative in decisions related to safety [...] Description: INTERVENTIONS: 1. Encourage patient or legal instruments sales representative to report early pain and [...] per policy 9. Teach patient or legal instruments sales representative interventions for comforting Outcome: Progressing [...] at the bedside 7. Instruct patient/ patient instruments sales representative about use of safety devices 8. Include patient/ patient instruments sales representative in decisions related to safety [...] hygiene technique 7. Identify and instruct patient/patient instruments sales representative in use of appropriate isolation precautions for identified infection/symptoms 8. Provide and discuss with patient/patient instruments sales representative on educational MDRO sheet 9. Encourage and monitor nutritional status daily and consult telephone assembler if indicated 10. Implement neutropenic guidelines as [...] that there are some limitations compared to eyoc-nu-rgdp evaluations. We elected to proceed. Nephrology Daily [...] chain ratio is 0.9 SAUL is pending. Yvwf-gjzwtv-isnlpziq DNA is pending. Anca is pending. Glomerular [...] outpatient Irving Flores M.D. [facility] Thank you for your consultation and allowing us to participate in the care of Danielle Montana and please do not hesitate to call us with any questions at: Office: [phone] Office Answering Service: [phone] Please feel free to contact me through [employer] Secure chat during the daytime hours, if [...] of assessment Discharge Planning Assessment completed at [facility]. Sharemilker identified self and role to the patient. Patient is agreeable to the assessment and discussion of a safe discharge plan. 10/16/23 0915 Discharge Disposition Discharge Disposition Home with Self Care County Information County of Residence [place] Patient Information Primary Caregiver Self Support System [...] of Residence Private residence Private Residence 1 [place] Accessibility Steps into home Number of Steps 2 Home Care Services No Community Agencies Currently Utilized [employer] [place] (Patient states she does her own cooking [...] DC Assessment Completed: Yes Pharmacy: [facility] in [place], [place]. [facility] to use [facility]. PCP: [...] Description: INTERVENTIONS: 1. Encourage patient or legal instruments sales representative to report early pain and [...] per policy 9. Teach patient or legal instruments sales representative interventions for comforting Outcome: Progressing Note: Evaluation of progress towards goal: Pt able to report pain according to 0/10 pain scale. Medicating patient for pain per orders. Problem: Pain Goal: Patient goal is pain score less than 4, able to rest, and participant in treatment plan as appropriate Description: INTERVENTIONS: 1. Encourage patient or legal instruments sales representative to report early pain and [...] per policy 9. Teach patient or legal instruments sales representative interventions for comforting Outcome: Progressing Note: Evaluation of progress towards goal: Pt able to report pain according to 0/10 pain scale. Medicating patient for pain per orders. Problem: Knowledge Deficit Goal: Patient/patient instruments sales representative demonstrates understanding of disease process, [...] Consult: Elevated creatinine Referring Provider: Kristina Robles APRN-ESCROW REPRESENTATIVE PCP: PCP Not In System Chief Complaint: [...] call us with any questions at: Office: [phone] Office Answering Service: [phone] Fran Wild M.D. This note was created [...] that there are some limitations compared to wqys-iw-tqcc evaluations. We elected to proceed. Problem: Knowledge Deficit Goal: Patient/patient instruments sales representative demonstrates understanding of disease process, [...] Description: INTERVENTIONS: 1. Encourage patient or legal instruments sales representative to report early pain and [...] per policy 9. Teach patient or legal instruments sales representative interventions for comforting Outcome: Progressing [...] at the bedside 7. Instruct patient/ patient instruments sales representative about use of safety devices 8. Include patient/ patient instruments sales representative in decisions related to safety Outcome: Progressing Note: Evaluation of progress towards goal: ongoing. Problem: Knowledge Deficit Goal: Patient/patient instruments sales representative demonstrates understanding of disease process, treatment plan, medications, and discharge instructions Description: INTERVENTIONS 1. Complete learning assessment and assess knowledge base 2. Provide teaching at level of understanding 3. Provide teaching via preferred learning method(s) Outcome: Progressing Note: Evaluation of progress towards goal: ongoing. documented in this encounter [facility] 10-18-2023 Progress note Formatting of t his note might be different from the original. DISCHARGE PLANNING NOTE Danielle Montana Lumber Material Handler conducted a visit at patient bedside. Patient ws updated on transfer process. We discussed that we did find her a new physician, Shawn Zamora in [place], [place]. It is on patient's AVS for time of discharge. Patient Discharge Plan: Home with self care. New physician will be Dr. Shawn Zamora in [place], [place]. [phone]. Patient is to call at time of discharge to schedule appointments as below. Schedule a follow up appointment with new PCP for 7-10 days. Schedule a new patient appointment with new PCP as available. - Silvana Conklin RN 10/18/23 11:22 AM [facility] 10-18-2023 Hospital course Narrative Images from the original note were not included. [facility] INTERNAL MEDICINE Hospital Medicine Discharge Summary Patient: Danielle Montana Date of : 1965 Room: [facility]/ Encounter date: 10/18/23 DATE OF ADMISSION: 10/14/2023 DATE OF DISCHARGE:10/18/2023 DISCHARGE DIAGNOSES Principal Problem: ERIN (acute kidney injury) ([facility]) Active Problems: Chronic obstructive pulmonary disease ([facility]) Hypertension ADORE (obstructive sleep apnea) Hypokalemia Edema of both lower extremities Mixed hyperlipidemia Abnormal fasting glucose LUTHER (iron deficiency anemia) Bipolar depression ([facility]) 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, psychotic disturbance, mood disturbance, or anxiety ([facility]) Iron deficiency anemia secondary to inadequate dietary [...] Protein Urine Random 1,270 (H) <120 mg/L U/Pro/Inspector Purchased Parts Ratio Calc 4.72 (H) <0.2 Microalbumin - [...] PM DISCHARGE ASSESSMENT & PLAN Transfer to [facility] per Nephrology DISCHARGE INSTRUCTION Disposition: [facility] Condition: Stable Activity: activity as tolerated [...] 7AM-7PM (all facilities): [facility] 7PM-7AM ([facility]): Gavin or simon, [phone]. 7PM-7AM ([facility], [place], [place] and [place] Rehab): EpicChat or page through Loyalize. This note is dictated with the use of M*Modal. Please note that this dictation was completed with computer voice recognition software. Quite often unanticipated grammatical, syntax, homophones, and other interpretive errors are inadvertently transcribed by the computer software. Please disregard these errors. Please excuse any errors that have escaped final proofreading. Antione Santa, CHEMIST HELPER-ESCROW REPRESENTATIVE 10/18/23 1106 I have seen and evaluated the patient, and have reviewed the history above and agree. I have repeated the vázquez portions of the physical exam and concur with the DEREK findings. I have reviewed all laboratory findings and imaging reports/films. I agree with the plan as noted above. Isma hayward documented in this encounter [facility] 10-18-2023 Progress note Formatting of [...] that there are some limitations compared to ypkf-po-mmip evaluations. We elected to proceed. Nephrology Daily [...] dapsone and atovaquone are not available in [facility]. Patient is allergic to Bactrim. 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 Once the patient is at [facility] will start PJP prophylaxis with atovaquone 0 or dapsone. Strict Is&Os. Do not start anticoagulation or antiplatelet therapy without notify Nephrology as patient will need kidney biopsy Irving Flores M.D. [facility] Thank you for your consultation and allowing us to participate in the care of Danielle Montana and please do not hesitate to call us with any questions at: Office: [phone] Office Answering Service: [phone] Please feel free to contact me through [employer] Secure chat during the daytime hours, if no response after 5 minutes then call the answering service. This note was created with the assistance of a speech-recognition program. Although the intention is to generate a document that actually reflects the content of the visit, no guarantees can be provided that every mistake has been identified and corrected by editing. [employer] Work Phone: 10-18-2023 Plan of care note Problem: Pain Goal: Patient goal is pain score less than 4, able to rest, and participant in treatment plan as appropriate Description: INTERVENTIONS: 1. Encourage patient or legal instruments sales representative to report early pain and [...] per policy 9. Teach patient or legal instruments sales representative interventions for comforting Outcome: Progressing [...] at the bedside 7. Instruct patient/ patient instruments sales representative about use of safety devices 8. Include patient/ patient instruments sales representative in decisions related to safety Outcome: Progressing Note: Evaluation of progress towards goal: PT is free of falls, hourly rounding is completed, area is kept clear. Problem: Knowledge Deficit Goal: Patient/patient instruments sales representative demonstrates understanding of disease process, treatment plan, medications, and discharge instructions Description: INTERVENTIONS 1. Complete learning assessment and assess knowledge base 2. Provide teaching at level of understanding 3. Provide teaching via preferred learning method(s) Outcome: Progressing Note: Evaluation of progress towards goal: Learning assessment and knowledge base assessed, teaching provided at an understandable level as needed. [facility] 10-18-2023 Plan of care note Problem: Safety [...] at the bedside 7. Instruct patient/ patient instruments sales representative about use of safety devices 8. Include patient/ patient instruments sales representative in decisions related to safety Outcome: Progressing Note: Evaluation of progress towards goal: Pt oriented to own abilities. Adequate lighting, area clear of hazards. Problem: Knowledge Deficit Goal: Patient/patient instruments sales representative demonstrates understanding of disease process, [...] =/> 25 or indicated by [facility] Re[facility] Assessment Goal: Patient should be free from fall Description: Interventions: 1. [place] to environment 2. Hourly rounds addressing the [...] non-skid footwear 11. Teach patient and patient instruments sales representative to maintain environment for safety [...] (cane, walker) within reach 19. Request patient instruments sales representative bring adaptive equipment/mobility aids from home or obtain and provide as needed 20. Consult pharmacy regarding effects of med's affecting mobility, cognition, and alternatives 21. Obtain physician order for PT if risk factors associated with mobility are present 22. Obtain physician order for OT as appropriate 23. Utilize diversional activities 24. Educate patient and patient instruments sales representative how to maintain a safe environment during visitation times (notify nurse prior to leaving bedside) 25. Consider appropriateness of medical or non-er medical technician 26. Set up voiding schedule as appropriate (every 2 hours) Outcome: Progressing Note: Evaluation of progress towards goal: Pt oriented to own abilities. Adequate lighting, area clear of hazards. [facility] 10-17-2023 History of Present illness Narrative 24 hour urine collection labeled and walked to lab by Deepa Chinchilla Stool sample as ordered collected, ;labeled, and sent to the lab. Images from the original note were not included. [facility] INTERNAL MEDIC[facility] [address] [place] [id number] Hospital Medicine Progress Note Patient: Danielle Montana [...] LIST Principal Problem: ERIN (acute kidney injury) ([facility]) Active Problems: Chronic obstructive pulmonary disease ([facility]) Hypertension ADORE (obstructive sleep apnea) Hypokalemia Edema of both lower extremities Mixed hyperlipidemia Abnormal fasting glucose LUTHER (iron deficiency anemia) Bipolar depression ([facility]) 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, psychotic disturbance, mood disturbance, or anxiety ([facility]) Iron deficiency anemia secondary to inadequate [...] prelim negative Hypokalemia -Supplement today is 3.6 -cream maker -Monitor electrolytes daily replace per protocol. -continue [...] Cohen APRN-TELLY 10/17/2023 1:20 PM [facility] Internal Medicine 7AM-7PM (all facilities): EpicMaria Rt or page through Loyalize. 7PM-7AM ([facility], [facility] Psychiatry and Inpatient Rehab): EpicChat or page, [phone]. 7PM-7AM ([place], [place], [place], [place] and [facility] Rehab): EpicChat or page through Loyalize. Nataliia Cohen APRN-ESCROW REPRESENTATIVE 10/17/23 1320 I have seen and evaluated [...] from the original note were not included. [facility] [address] [facility] [id number] Hospital Medicine Progress Note Patient: Danielle Montana [...] LIST Principal Problem: ERIN (acute kidney injury) ([facility]) Active Problems: Chronic obstructive pulmonary disease ([facility]) Hypertension ADORE (obstructive sleep apnea) Hypokalemia Edema of both lower extremities Mixed hyperlipidemia Abnormal fasting glucose LUTHER (iron deficiency anemia) Bipolar depression ([facility]) 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, psychotic disturbance, mood disturbance, or anxiety ([facility]) ASSESSMENT & PLAN ERIN -Stopped IV hydration [...] leg dopplers Hypokalemia -Supplement today is 3.2 -cream maker -Monitor electrolytes daily replace per protocol. -continue [...] of diuresis. BRUCE Maria 10/16/2023 7:56 AM [facility]ngel [facility] Internal Medicine 7AM-7PM (all facilities): EpicChat or page through Loyalize. 7PM-7AM ([facility], [facility] Psychiatry and Inpatient Rehab): EpicChat or page, [phone]. 7PM-7AM ([place], [place], [place], [place] and [facility] Rehab): EpicChat or page through [employer]. BRUCE Maria 10/16/23 4239 I have seen and evaluated the patient, [...] PM documented in this encounter [facility] 10-17-2023 Hospital Discharge instructions Geetha Zamuido - 10/17/2023 11:47 AM EDT YOUR SCHEDULED APPOINTMENTS Please make note of this in your schedule as to not miss or call to reschedule. Thank you! Please call office to schedule a NEW patient appointment with Dr. Shawn Zamora MD Address: [address] [place] [id number] Pt. should bring the following to appointment; [...] For NEW patients, MD will not prescribe laborer marine terminal pain medication. documented in this encounter [facility] 10-17-2023 Progress note Formatting of t his [...] that there are some limitations compared to fvyn-xz-senn evaluations. We elected to proceed. Nephrology Daily [...] ratio is 4.7 g/g. SAUL is pending. Qsgf-nicsip-dcqijsqt DNA is pending. Anca is pending. Glomerular [...] workup Irving Flores M.D. [facility] Thank you for your consultation and allowing us to participate in the care of Danielle Montana and please do not hesitate to call us with any questions at: Office: [phone] Office Answering Service: [phone] Please feel free to contact me through [employer] Secure chat during the daytime hours, if no response after 5 minutes then call the answering service. This note was created with the assistance of a speech-recognition program. Although the intention is to generate a document that actually reflects the content of the visit, no guarantees can be provided that every mistake has been identified and corrected by editing. [facility] 10-17-2023 Plan of care note Problem: Pain Goal: Patient goal is pain score less than 4, able to rest, and participant in treatment plan as appropriate Description: INTERVENTIONS: 1. Encourage patient or legal instruments sales representative to report early pain and [...] per policy 9. Teach patient or legal instruments sales representative interventions for comforting Outcome: Progressing [...] at the bedside 7. Instruct patient/ patient instruments sales representative about use of safety devices 8. Include patient/ patient instruments sales representative in decisions related to safety Outcome: Progressing Note: Evaluation of progress towards goal: Patient will remain safe and free from injury. Problem: Low Risk Fall Score Description: Flores Fall Score of 0 - 24 or indicated by [facility] Assessment Goal: Patient should be free from fall Description: Interventions: 1. Tenafly to environment 2. Hourly rounds addressing the [...] non-skid footwear 11. Teach patient and patient instruments sales representative to maintain environment for safety and engage in all aspects of fall prevention program Outcome: Progressing Note: Evaluation of progress towards goal: Patient will remain free from falls. [facility] 10-17-2023 Plan of care note [...] at the bedside 7. Instruct patient/ patient instruments sales representative about use of safety devices 8. Include patient/ patient instruments sales representative in decisions related to safety [...] assist in reposition when needed. [facility] 10-16-2023 Plan of care note Problem: Pain Goal: Patient goal is pain score less than 4, able to rest, and participant in treatment plan as appropriate Description: INTERVENTIONS: 1. Encourage patient or legal instruments sales representative to report early pain and [...] per policy 9. Teach patient or legal instruments sales representative interventions for comforting Outcome: Progressing [...] at the bedside 7. Instruct patient/ patient instruments sales representative about use of safety devices 8. Include patient/ patient instruments sales representative in decisions related to safety [...] hygiene technique 7. Identify and instruct patient/patient instruments sales representative in use of appropriate isolation precautions for identified infection/symptoms 8. Provide and discuss with patient/patient instruments sales representative on educational MDRO sheet 9. Encourage and monitor nutritional status daily and consult telephone assembler if indicated 10. Implement neutropenic guidelines as [...] patient is diuresing, nephro consulted. I/O's continued. [facility] 10-16-2023 Progress note Formatting of [...] that there are some limitations compared to hdtt-ij-acci evaluations. We elected to proceed. Nephrology Daily [...] chain ratio is 0.9 SAUL is pending. Aynz-quglez-cdkisdod DNA is pending. Anca is pending. Glomerular [...] outpatient Irving Flores M.D. [facility] Thank you for your consultation and allowing us to participate in the care of Danielle Montana and please do not hesitate to call us with any questions at: Office: [phone] Office Answering Service: [phone] Please feel free to contact me through [employer] Secure chat during the daytime hours, if no response after 5 minutes then call the answering service. This note was created with the assistance of a speech-recognition program. Although the intention is to generate a document that actually reflects the content of the visit, no guarantees can be provided that every mistake has been identified and corrected by editing. [facility] 10-16-2023 Progress note Formatting of [...] of assessment Discharge Planning Assessment completed at [facility]. Sharemilker identified self and role to the patient. Patient is agreeable to the assessment and discussion of a safe discharge plan. 10/16/23 0915 Discharge Disposition Discharge Disposition Home with Self Care County Information County of Residence [place] Patient Information Primary Caregiver Self Support System [...] of Residence Private residence Private Residence 1 [place] Res[place] Accessibility Steps into home Number of Steps 2 Home Care Services No Community Agencies Currently Utilized Food [place] (Patient states she does her own cooking [...] DC Assessment Completed: Yes Pharmacy: [facility] in [place], [place]. Used to use [facility]. PCP: [...] - Silvana Conklin RN 10/16/23 11:30 AM [facility] 10-15-2023 Plan of care note Problem: Pain Goal: Patient goal is pain score less than 4, able to rest, and participant in treatment plan as appropriate Description: INTERVENTIONS: 1. Encourage patient or legal instruments sales representative to report early pain and [...] per policy 9. Teach patient or legal instruments sales representative interventions for comforting Outcome: Progressing Note: Evaluation of progress towards goal: Pt able to report pain according to 0/10 pain scale. Medicating patient for pain per orders. T [facility] 10-15-2023 Plan of care note Problem: Pain Goal: Patient goal is pain score less than 4, able to rest, and participant in treatment plan as appropriate Description: INTERVENTIONS: 1. Encourage patient or legal instruments sales representative to report early pain and [...] per policy 9. Teach patient or legal instruments sales representative interventions for comforting Outcome: Progressing Note: Evaluation of progress towards goal: Pt able to report pain according to 0/10 pain scale. Medicating patient for pain per orders. Problem: Knowledge Deficit Goal: Patient/patient instruments sales representative demonstrates understanding of disease process, [...] goal: Continue to assess for when appropriate. [facility] 10-15-2023 Consult note Formatting of th is [...] to participate in the care of Danielle oMntana and please do not hesitate to call us with any questions at: Office: [phone] Office Answering Service: [phone] Fran Wild M.D. This note was created [...] that there are some limitations compared to wsup-dp-fiub evaluations. We elected to proceed. [facility] Work Phone: 10-15-2023 History and physical note Images from the original note were not included. [facility] INTERNAL MEDICINE Hospital Medicine History & Physical Patient: Danielle Montana Date of : 1965 Room: [facility] PCP: PCP Not In System Admission date: [...] medical history of Anxiety, Back pain, Cancer ([facility]), Cervical cancer ([facility]), Chest pain, Cluster headache, COPD (chronic obstructive pulmonary disease) ([facility]), Degenerative arthritis, Depression, Dry mouth, Emphysema, Emphysema of lung ([facility]), Fibromyalgia, Fibromyalgia, primary, GERD (gastroesophageal reflux disease), Heartburn, Hypertension, Joint pain, Morbid obesity ([facility]), Mouth sores, MRSA (methicillin resistant Staphylococcus aureus), Nausea, Obesity, Osteoporosis, PAD (peripheral artery disease) ([facility]), PVD (peripheral vascular disease) ([facility]), Sleep apnea, SOB (shortness of breath), Stiff [...] LIST Principal Problem: ERIN (acute kidney injury) ([facility]) Active Problems: Chronic obstructive pulmonary disease ([facility]) Hypertension ADORE (obstructive sleep apnea) Hypokalemia Edema of both lower extremities Mixed hyperlipidemia ASSESSMENT & PLAN ERIN: Gentle hydration. Nephrology consult. Monitor kidney function daily. Edema both lower extremities: Monitor daily weight and I&O. Echocardiogram ordered. Nephrology consult help with diuresis/fluid balance. Hypokalemia: Supplement. 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 Monitor electrolytes daily replace per protocol. COPD: [...] APRN-TELLY, 10/15/2023 8:35 AM Dhruv [facility] Internal Medicine 7AM-7PM (all facilities): EpicChat or page through Vocera. 7PM-7AM ([facility], [facility] Psychiatry and Inpatient Rehab): EpicChat or page, [phone]. 7PM-7AM ([place], [place], [place], [place] and [place] Re[facility]): EpicChat or page [...] above, unless otherwise noted. DRE JEWELL MD [facility] Work Phone: 10-15-2023 History and physical note Images from the original note were not included. [facility] INTERNAL MEDICINE Hospital Medicine History & Physical Patient: Danielle Montana Date of : 1965 Room: [facility] PCP: PCP Not In System Admission date: [...] medical history of Anxiety, Back pain, Cancer ([facility]), Cervical cancer ([facility]), Chest pain, Cluster headache, COPD (chronic obstructive pulmonary disease) ([facility]), Degenerative arthritis, Depression, Dry mouth, Emphysema, Emphysema of lung ([facility]), Fibromyalgia, Fibromyalgia, primary, GERD (gastroesophageal reflux disease), Heartburn, Hypertension, Joint pain, Morbid obesity ([facility]), Mouth sores, MRSA (methicillin resistant Staphylococcus aureus), Nausea, Obesity, Osteoporosis, PAD (peripheral artery disease) ([facility]), PVD (peripheral vascular disease) ([facility]), Sleep apnea, SOB (shortness of breath), Stiff [...] LIST Principal Problem: ERIN (acute kidney injury) ([facility]) Active Problems: Chronic obstructive pulmonary disease ([facility]) Hypertension ADORE (obstructive sleep apnea) Hypokalemia Edema of both lower extremities Mixed hyperlipidemia ASSESSMENT & PLAN ERIN: Gentle hydration. Nephrology consult. Monitor kidney function daily. Edema both lower extremities: Monitor daily weight and I&O. Echocardiogram ordered. Nephrology consult help with diuresis/fluid balance. Hypokalemia: Supplement. 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 Monitor electrolytes daily replace per protocol. COPD: [...] Santa APRN-TELLY, 10/15/2023 8:35 AM [facility] Internal Medicine 7AM-7PM (all facilities): EpicChat or page through Vocera. 7PM-7AM ([facility], [facility] Psychiatry and Inpatient Rehab): EpicChat or page, [phone]. 7PM-7AM ([place], [place], [place], [place] and [place] [facility]): EpicChat or page [...] MD documented in this encounter [facility] 10-15-2023 Plan of care note Problem: Knowledge Deficit Goal: Patient/patient instruments sales representative demonstrates understanding of disease process, [...] to assess for when appropriate. [facility] 10-15-2023 Plan of care note Problem: Pain Goal: Patient goal is pain score less than 4, able to rest, and participant in treatment plan as appropriate Description: INTERVENTIONS: 1. Encourage patient or legal instruments sales representative to report early pain and [...] per policy 9. Teach patient or legal instruments sales representative interventions for comforting Outcome: Progressing [...] at the bedside 7. Instruct patient/ patient instruments sales representative about use of safety devices 8. Include patient/ patient instruments sales representative in decisions related to safety Outcome: Progressing Note: Evaluation of progress towards goal: ongoing. Problem: Knowledge Deficit Goal: Patient/patient instruments sales representative demonstrates understanding of disease process, treatment plan, medications, and discharge instructions Description: INTERVENTIONS 1. Complete learning assessment and assess knowledge base 2. Provide teaching at level of understanding 3. Provide teaching via preferred learning method(s) Outcome: Progressing Note: Evaluation of progress towards goal: ongoing. [facility] 10-14-2023 Emergency department Triage note Bilateral hand/feet swelling, cough, headache [facility] 10-14-2023 Emergency department Note Bilateral hand/feet swelling, [...] History: Diagnosis Date Anxiety Back pain Cancer ([facility]) cervical cancer approx 1994 Cervical cancer ([facility]) Chest pain Cluster headache COPD (chronic obstructive pulmonary disease) ([facility]) Degenerative arthritis Depression Dry mouth Emphysema Emphysema of lung ([facility]) Fibromyalgia Fibromyalgia, primary GERD (gastroesophageal reflux disease) Heartburn Hypertension Joint pain Morbid obesity ([facility]) Mouth sores MRSA (methicillin resistant Staphylococcus aureus) Nausea Obesity Osteoporosis PAD (peripheral artery disease) ([facility]) PVD (peripheral vascular disease) ([facility]) Sleep apnea cpap SOB (shortness of breath) Stiff muscles Swollen ankles Weakness Past Surgical History: Procedure Laterality Date ABDOMINAL SURGERY BILATERAL SI JOINT INJECTION #1 Bilateral 11/07/2016 Performed by Mony Klein MD at [facility] COLONOSCOPY N/A 10/14/2019 Performed by Eben Lindsay DO at [facility] [facility] Coronary angiogram and left ventricular gram/pressure N/A 11/18/2016 Performed by Bobby Stanton MD at [facility] CARD[facility] CATH LABS HYSTERECTOMY 06/22/1998 INCISION AND DRAINAGE and irrigation w/Drain LEFT HAND and left elbow Left 11/16/2015 Performed by Kt Ann MD at [facility] Travel Screening No screening [...] as of 10/15/2340 ERIN (acute kidney injury) ([facility]) Hypertensive urgency Hypokalemia Elevated brain natriuretic peptide (BNP) level MDM Medical Decision Making INanette (scribe) documented for Dr. Elliott. Chief Complaint: Leg swelling, arm swelling, nausea and a cough Differential Diagnosis includes but is not limited to: CHF exacerbation, hypertensive urgency, anemia, electrolyte derangement, AR. Plan of Care: Dr. Elliott ordered Troponin [...] is pending admission. 41 -- Niya Robles BATTERY SERVICE TECHNICIAN accepts patient under Dr Jewell. Patient to [...] None Diagnosis: 1. ERIN (acute kidney injury) ([facility]) 2. Hypertensive urgency 3. Hypokalemia 4. Elevated brain natriuretic peptide (BNP) level Disposition: Patient's disposition: Admit Patient's condition is stable. Provider Statement By electronically signing this emergency patient record, the Emergency Physician/BATTERY SERVICE TECHNICIAN/PA-C attests that all entries made into the electronic medical record by patrick Hall prior to the Physician/BATTERY SERVICE TECHNICIAN/PA-C signature reflect an accurate accounting of the evaluation and care rendered by that Emergency Physician/BATTERY SERVICE TECHNICIAN/PA-C. The Emergency Physician/BATTERY SERVICE TECHNICIAN/PA-C assumes full responsibility for those entries. The Emergency Physician/BATTERY SERVICE TECHNICIAN/PA-C also attests that any patient testing or treatment that was instituted by nursing staff in accordance to Emergency Department Preemptive Guidelines have been reviewed and unless so stated elsewhere in this patient chart, the Physician/BATTERY SERVICE TECHNICIAN/PA-C agrees with the testing and care provided. No Additional Attestations Nanette Hernandez 10/14/23 2210 Nanette Hernandez 10/14/23 2234 Alexis Elliott DO 10/14/23 2237 Nanette Hernandez 10/14/23 2240 Nanette Hernandez 10/14/23 2326 Nanette Hernandez 10/14/23 2358 Gillian Cordero MD 10/15/23 0043 Alexis Elliott DO 10/15/23 0401 documented in this encounter [facility] [place] 10-14-2023 Physician Emergency department Note Images from [...] History: Diagnosis Date Anxiety Back pain Cancer ([facility] cervical cancer approx 1994 Cervical cancer ([facility]) Chest pain Cluster headache COPD (chronic obstructive pulmonary disease) ([facility]) Degenerative arthritis Depression Dry mouth Emphysema Emphysema of lung ([facility]) Fibromyalgia Fibromyalgia, primary GERD (gastroesophageal reflux disease) Heartburn Hypertension Joint pain Morbid obesity ([facility]) Mouth sores MRSA (methicillin resistant Staphylococcus aureus) Nausea Obesity Osteoporosis PAD (peripheral artery disease) ([facility]) PVD (peripheral vascular disease) ([facility]) Sleep apnea cpap SOB (shortness of breath) Stiff muscles Swollen ankles Weakness Past Surgical History: Procedure Laterality Date ABDOMINAL SURGERY BILATERAL SI JOINT INJECTION #1 Bilateral 11/07/2016 Performed by Mony Klein MD at [facility] COLONOSCOPY N/A 10/14/2019 Performed by Eben Lindsay DO at [facility] Coronary angiogram and left ventricular gram/pressure N/A 11/18/2016 Performed by Bobby Stanton MD at [facility] CATH LABS HYSTERECTOMY 06/22/1998 INCISION AND DRAINAGE and irrigation w/Drain LEFT HAND and left elbow Left 11/16/2015 Performed by Kt Ann MD at [facility] Travel Screening No screening [...] of 10/15/23 0041 Sat Oct 14, 2023 1170 Pain Score: 8 [KM] ED Course User [...] CHF exacerbation, hypertensive urgency, anemia, electrolyte derangement, AR. Plan of Care: Dr. Elliott ordered Troponin [...] is pending admission. 0042 -- Niya Robles BATTERY SERVICE TECHNICIAN accepts patient under Dr Jewell. Patient to [...] None Diagnosis: 1. ERIN (acute kidney injury) ([facility]) 2. Hypertensive urgency 3. Hypokalemia 4. Elevated brain natriuretic peptide (BNP) level Disposition: Patient's disposition: Admit Patient's condition is stable. Provider Statement By electronically signing this emergency patient record, the Emergency Physician/BATTERY SERVICE TECHNICIAN/PA-C attests that all entries made into the electronic medical record by patrick Hall prior to the Physician/BATTERY SERVICE TECHNICIAN/PA-C signature reflect an accurate accounting of the evaluation and care rendered by that Emergency Physician/BATTERY SERVICE TECHNICIAN/PA-C. The Emergency Physician/BATTERY SERVICE TECHNICIAN/PA-C assumes full responsibility for those entries. The Emergency Physician/BATTERY SERVICE TECHNICIAN/PA-C also attests that any patient testing or treatment that was instituted by nursing staff in accordance to Emergency Department Preemptive Guidelines have been reviewed and unless so stated elsewhere in this patient chart, the Physician/BATTERY SERVICE TECHNICIAN/PA-C agrees with the testing and care provided. No Additional Attestations Nanette Hernandez 10/14/23 2210 Nanette Hernandez 10/14/23 2234 Alexis Elliott DO 10/14/23 2237 Nanette Hernandez 10/14/23 2240 Nanette Hernandez 10/14/23 2326 Nanette Hernandez 10/14/23 2358 Gillian Cordero MD 10/15/23 0043 Alexis Elliott DO 10/15/23 0401 [facility] [facility] Work Phone: 02-09-2022 Note PROCEDURE: XR [...] by: LO COSTA Date: 2022-02-09 06:49 [facility] 02-09-2022 Note PROCEDURE: XR ANKLE RT [...] by: LO COSTA Date: 2022-02-09 06:49 [facility] Evaluation note Includes: Assessments for all patient encountersNo Assessments Recorded Health [facility] Work Phone: Evaluation note Diagnosis ARSH (generalized anxiety disorder) ([facility]) Generalized anxiety disorder [facility] Diagnosis Chronic obstructive pulmonary disease with acute exacerbation ([facility])- Primary Chronic rhinitis Bipolar depression ([facility]) Bipolar I disorder, most recent episode (or current) depressed, unspecified ADORE (obstructive sleep apnea) Obstructive sleep apnea (adult) (pediatric) Pulmonary emphysema, unspecified emphysema type ([facility]) [facility] Diagnosis ERIN (acute kidney injury) ([facility] Primary ERIN (acute kidney injury) ([facility]) Hypertensive urgency Hypokalemia Hypopotassemia Elevated brain natriuretic peptide (BNP) level Chronic obstructive pulmonary disease ([facility]) Hypertension Unspecified essential hypertension Hypokalemia Hypopotassemia ADORE (obstructive sleep apnea) Obstructive sleep apnea (adult) (pediatric) Edema of both lower extremities Mixed hyperlipidemia Abnormal fasting glucose LUTHER (iron deficiency anemia) Unspecified iron deficiency anemia Bipolar depression ([facility]) Bipolar I disorder, most recent episode (or current) depressed, unspecified 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, psychotic disturbance, mood disturbance, or anxiety ([facility]) Iron deficiency anemia secondary to inadequate dietary iron intake B12 deficiency [facility] Diagnosis 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- Primary [facility] Diagnosis 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- Primary [facility] Diagnosis 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- Primary [facility] Diagnosis ERIN (acute kidney injury) ([facility] Primary 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 ([facility]) Hypovitaminosis D Unspecified vitamin D deficiency Hypomagnesemia Disorders of magnesium metabolism Primary hypertension Unspecified essential hypertension Nephrotic range proteinuria Proteinuria [facility] Narrative History of Present Illness not supported for this document type No History of Present Illness [facility] Work Phone: Instructions Instructions not supported for this document type No Instructions [facility] Work Phone: InstructionsNot on filedocumented [...] Outcomes for active Goals No Outcomes [facility] Work Phone: reason for referral (narrative)* Consultation (Routine) - Pending Review Specialty Diagnoses / Procedures Referred By Juan fonseca Referred To Contact Pulmonary Disease Diagnoses Chronic obstructive pulmonary disease with acute exacerbation ([facility]) ADORE (obstructive sleep apnea) Pulmonary emphysema, unspecified emphysema type ([facility]) Procedures [place] OFFICE/OUTPATIENT [facility] MDM 60 MINUTES Erica Pompa NP [address] [place] [address] Referral ID Status Reason Start Date Expiration Date Visits Requested Visits Authorized [id number] Pending Review Specialty Services Required 01/31/2024 07/29/2024 1 1 [facility] Narrative - Reported Review of Systems not supported for this document type No Review of Systems [facility] Work Phone: History [...] FoundDocuments on File Type Date Recorded 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 ACP-Advance Directive ACP-Power of Supervisor Gluing Documents on File Type Date Recorded 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 Durable Power of Supervisor Gluing 01/12/2021 1:47 PM Living Will 01/12/2021 1:47 [...] section and content) DATE CREATED AUTHOR 10/23/2017 [facility] DATE CREATED AUTHOR AUTHOR'S ORGANIZ ATION 08/01/2018 [facility] DATE CREATED AUTHOR AUTHOR'S ORGANIZ ATION 08/11/2018 [facility] DATE CREATED AUTHOR AUTHOR'S ORGANIZ ATION 01/23/2020 [facility] DATE CREATED AUTHOR AUTHOR'S ORGANIZ ATION 04/19/2022 [facility] DATE CREATED AUTHOR AUTHOR'S ORGANIZ ATION 01/14/2024 [facility] DATE CREATED AUTHOR AUTHOR'S ORGANIZ ATION 01/23/2024 [facility] DATE CREATED AUTHOR AUTHOR'S ORGANIZ ATION 02/02/2024 [facility] DATE CREATED AUTHOR AUTHOR'S ORGANIZ ATION 12/27/2024 [facility] Reason for Visit (unrecogniz ed section and content) Reason Onset Date Comments Med Refill 01/29/2024 Reason Comments Cough Reason Comments Leg Swelling Arm Swelling Nausea Cough Specialty Diagnoses / Procedures Referred By Juan fonseca Referred To Contact Diagnoses Hypokalemia Chest pain ERIN (acute kidney injury) ([facility]) Hypertensive urgency Elevated brain natriuretic peptide (BNP) level Dre Jewell MD [address] [place] [address] Referral ID Status Reason Start Date Expiration Date Visits Re quested Visits Authorized [id number] 1 1 Reason Comments Outpatient Infusion [facility] Specialty Diagnoses / Procedures Referred By Juan fonseca Referred To Contact Diagnoses 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 Procedures INJECTION,RITUXIMAB-PVVR,BI OSIMILAR,(RUXIENCE),10MG INJECTION, RITUXIMAB-ABBS,BIOSIMILAR,( TRUXIMA),10MG Wanda Mendez MD [address] [place] [address] Pfo Med Onc [address] [place] [address] Referral ID Status Reason Start Date Expiration Date V isits Requested Visits Authorized [id number] Authorized 11/13/2023 11/09/2024 1 4 Reason Comments Med Refill Care Teams (unrecognized sec tion and content) Cold Roll Operator Relationship Specialty Start Date End Date Vu Rivera MD [address] [place] [address] PCP - General Family Medicine 12/12/23 Erica Pompa NP [address] [place] [address] Nurse Practitioner Family Medicine 12/12/23 Cold Roll Operator Relationship Specialty Start Date End Date Vu Rivera MD [address] [place] [phone] PCP - General Family Medicine 12/12/23 Erica Pompa NP [address] [place] [address] Nurse Practitioner Family Medicine 12/12/23 Cold Roll Operator Relationship Specialty Start Date End Date Vu Rivera MD [address] [place] [phone] PCP - General Family Medicine 12/12/23 Erica Pompa NP [address] [place] [address] Nurse Practitioner Family Medicine 12/12/23 Cold Roll Operator Relationship Specialty Start Date End Date Pcp, [place] [address] PCP - General Family Medicine 10/14/23 Cold Roll Operator Relationship Specialty Start Date End Date Shawn Zamora MD [address] [place] [address] PCP - General Family Medicine 10/19/23 Cold Roll Operator Relationship Specialty Start Date End Date Shawn Zamora MD [address] [place] [address] PCP - General Family Medicine 10/19/23 Cold Roll Operator Relationship Specialty Start Date End Date Shawn Zamora MD [address] [place] [address] PCP - General Family Medicine 10/19/23 Cold Roll Operator Relationship Specialty Start Date End Date Shawn Zamora MD [address] [place] [address] PCP - General Family Medicine 10/19/23 Cold Roll Operator Relationship Specialty Start Date End Date Shawn Zamora MD [address] [place], [place] [id number] PCP - General Family Medicine 10/19/23 Cold Roll Operator Relationship Specialty Start Date End Date Shawn Zamora MD [address] [place], [place] [phone] PCP - General Family Medicine 10/19/23 Cold Roll Operator Relationship Specialty Start Date End Date Shawn Zamora MD [address] [place] [address] PCP - General Family Medicine 10/19/23 Scheduled [...] whole-do not crush or chew. Although the services delivery driver does not recommend opening the capsule to [...] Every 4 hours PRN, high blood pressure, [id number], Starting on 10/15/23 at 1020, Look-alike/sound-alike medication [...] Romelia Miller RCP) kit for prep of [id number] 2.5 mg recon soln 5 millicurie (COMPLETED) [...] BE BASED ON THE PRIMARY CLINICAL RECORDS. [email or web address] provides no warranty or guarantee of the accuracy or completeness of information in this document.
[2025-01-29] MEDS: INSULIN ASPART 300 UNIT/3 ML PEN SUBQ ×2 (17:16→21:20)
[2025-01-29] MEDS: BUSPIRONE HCL 15 MG TABLET PO (20:33)
[2025-01-29] MEDS: TRAMADOL HCL 50 MG TABLET PO (20:33)
[2025-01-29] MEDS: HYDROXYZINE HCL 25 MG TABLET 12.5 MG PO (21:29)
[2025-01-30] VITALS (10 sets, daily range): BP systolic 123–148; BP diastolic 67–94; PULSE 51–84; TEMP 36.3–36.6; O2SAT 90–96
[2025-01-30 05:56] LABS: Hematocrit 37.7 % (36.0-48.0); Hemoglobin 11.9 g/dL (12.0-16.0); Immature Granulocytes Abs Auto 0.05 10^3/uL (0.00-0.03); Immature Granulocytes Pct Auto 0.9 % (0.0-0.5); Lymphocytes Absolute Auto 0.6 10^3/uL (1.2-3.8); Mean Corpuscular HGB Conc 31.6 g/dL (29.9-35.2); Mean Corpuscular Hemoglobin 28.3 pg (26.7-34.0); Mean Corpuscular Volume 89.8 fL (81.0-99.0); Platelet Count 244 10^3/uL (150-450); Red Blood Count 4.20 10^6/uL (4.20-5.40); White Blood Count 5.7 10^3/uL (4.0-11.0)
[2025-01-30 06:10] LABS: Alanine Aminotransferase 16 U/L (14-59); Albumin Globulin Ratio 1.1; Albumin Level 3.6 g/dL (3.4-5.0); Alkaline Phosphatase 60 U/L (46-116); Anion Gap 13.4; Aspartate Amino Transferase 13 U/L (15-37); Blood Urea Nitrogen 27.0 mg/dL (7.0-18.0); Calcium 9.5 mg/dL (8.5-10.1); Carbon Dioxide 29.9 mmol/L (21.0-32.0); Chloride 103 mmol/L (98-107); Estimated GFR (African America 48 (>=60 mL/min/1.73m^2); Estimated GFR (Non-African Ame 40 (>=60 mL/min/1.73m^2); Globulin 3.2 g/dL; Glucose 132 mg/dL (74-106); Magnesium 2.3 mg/dL (1.8-2.4); Potassium 4.3 mmol/L (3.5-5.1); Sodium 142 mmol/L (136-145); Total Protein 6.8 g/dL (6.4-8.2)
--- OUTSIDE RECORDS SUMMARY | 2025-01-30 06:57 | XMS_ITS | CCD ---
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 Name Role Phone Tanja, Leda Unavailable Unavailable [...] le RUMSCHLAG, MIGNON Primary Care Unavailable Tanja COSMETOLOGY EDUCATOR, Leda Unavailable NICOLE, DR VU Novoa Attending Unavailable NICOLE, DR VU Novoa Admitting Unavailable [facility] [...] Unavailable ZAMORA, SHAWN E Referring Unavailable ZAMORA, SHANW E Primary Care Unavailable AL-KATHLEEN, WANDA Referring Unavailable ZAMORA, SHAWN E Primary Care Unavailable TERRASI, HANANE A Referring Unavailable ZAMORA, SHAWN E Primary Care Unavailable SHAIKH BOOKER Attending Unavailable SHAIKH BOOKER Attending Unavailable ERICA POMPA Attending UnavailVu Arguello MD Primary Care Provider Erica Pompa NP Unavailable [phone] Pcp, Not In System Primary Care Provider [...] Vomiting, GI intolerance, Vomiting [facility] (4 sources) pregabalin; Translations: [Lyrica] Drug Allergy Altered Mental State [facility] (4 sources) sulfamethoxazole / trimethoprim; Translations: [Bactrim] Drug Allergy [facility] (4 sources) -No Environmental Allergies; Translations: [-No Environmental Allergies] Allergy to substance (disorder) [facility] (2 sources) -No Known Food Allergies Allergy to substance (disorder) [facility] (3 sources) NSAIDs Propensity to adverse reactions to drug 02-24-20 15 Other (See Comments) [place], [place] (20 sources) pregabalin; Translations: [PREGABALIN] Drug Allergy 01-19-20 12 Other (See Comments), Unknown [place], [place] (20 sources) Sulfamethoxazole / Trimethoprim; Translations: [SULFAMETHOXAZOLE-T RIMETHOPRIM] Drug Allergy 11-15-19 16 Hives [place], [place] (1 source) pregabalin Drug Allergy 12-31-19 22 [facility] (1 source) Sulfamethoxazole / Trimethoprim Drug Allergy 04-15-20 22 [facility] Medications Current Medications Medication Drug Class(es) Dates Sig (Normalized) Sig (Original) [id number] 200 actuat albuterol 0.09 mg/actuat metered dose [...] Start: 05-19-2018 End: 05-19-2018 VENTOLIN HFA 90MCG/ACTUAT LA SC 05/19/2018 - 05/19/2018 Provider: End: 10-14-2023 [...] 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 take 1 tablet by [facility] once daily donepezil (ARICEPT) 10 MG [...] 10-26-2023 take 1 capsule by [facility] in the morning DULoxetine (CYMBALTA) 30 mg capsule Take 1 capsule (30 mg total) by mouth in the morning. 30 capsule 10/26/2023 Active Start: 07-19-2018 DULoxetine HCl 30MG Oral Capsule, delayed-release particles 07/19/2018 Provider: Start: 05-19-2018 End: 05-19-2018 DULOXETINE 30MG MISC 019 - 05/19/2018 Provider: Start: 05-19-2018 End: 05-19-2018 D[facility]OXETINE [facility]MG [facility] 019 - 05/19/2018 Provider: Start: 03-07-2018 take 1 capsule by mo [facility] once daily duloxetine 30 mg oral capsule,delayed release(DR/EC) 03/07/2018 take 1 capsule (30 mg) by oral route once daily, take with 60 mg capsule to equal 90 mg daily Start: 03-07-2018 End: 03-07-2018 DULOXETINE 60MG MISC 018 - 03/07/2018 Provider: Start: 03-07-2018 End: 03-07-2018 DULOXETINE 30MG MISC 018 - 03/07/2018 Provider: Start: 08-16-2017 take 1 capsule by mo [facility] once daily 60 mg, oral, Daily, First dose on 10/15/23 at 0900, Look-alike/sound-alike medication - verify indication for use. Swallow whole-do not crush or chew. Although the field assistant does not recommend opening the capsule to facilitate administration, the contents of capsule may be sprinkled on applesauce or in apple juice and swallowed (without chewing) immediately; do not sprinkle contents on chocolate pudding. take 1 capsule by [facility] once daily duloxetine 30 mg oral capsule,delayed release(DR/EC) take 1 capsule (30 mg) by oral route once daily ergocalciferol 1.25 mg oral capsule (4 sources) Provitamin D2 Compound Start: 07-19-2018 Ergocalciferol [id number] Oral Capsule, conventional 07/19/2018 Provider: Start: 09-14-2017 take 1 capsule by [facility] every week Vitamin D2 50,000 unit [...] 07/12/2018 - 07/20/2018 Provider: Leda Agrawal CNP Azgjrfnrmcn-Efltdakay-Jseaac (Trelegy Ellipta) 200-62.5-25 MCG/ACT aerosol powder (4 sources) Start: 11-02-2023 take 1 puff(s) by inhalation once daily Igwdyeurolv-Xaoxquoap-Cnuood (Trelegy Ellipta) 200-62.5-25 MCG/ACT aerosol powder Indications: Chronic obstructive pulmonary disease, unspecified COPD type ([facility]) Inhale 1 puff Daily 28 [...] Start: 05-19-2018 End: 05-19-2018 GABAPENTIN 300 mg [facility] 05/19 - 05/19/2018 Provider: Start: 02-13-2018 End: 02-13-2018 Gabapentin 600MG OR TABS - 02/13/2018 Provider: Start: 09-26-2017 take 1 capsule by mo [facility] three times daily gabapentin 300 mg [...] Every 4 hours PRN, high blood pressure, flr=[phone], Starting on 10/15/23 at 1020, Look-alike/sound-alike medication [...] 03-13-2018 take 1 capsule by mo [facility] twice daily hydroxyzine pamoate 50 mg [...] 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 ([facility]) Take 2.5 tablets (50 mg total) by [...] dose take 2 tablets by mo [facility] every four hours as needed for [...] Start: 02-13-2018 End: 02-13-2018 CLINDAMYCIN HCL 300MG [facility] 02/13/2018 - 02/13/2018 Provider: Start: [...] day with food kit for prep of Im-64a-fdjahnw 2.5 mg recon soln 5 millicurie (1 [...] and after each intermittent use, Starting on [facility] 10/14/23 at 2218 technetium pentetate (DTPA [...] Chronic Other aftercare (2 sources) 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; Translations: [OTH 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 CURRENT DRUG THERAPY] Onset: 2 Episodic Other aftercare (1 source) 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 Mccormick. [facility] Orders Onlyon 12-18-2024 Orders Only [id number] Danielle Montana 1965 F Date Provider Department [facility] 12/18/2024 [id number], HISTORICAL [facility] Family History Problem Relation Age of Onset Coronary artery disease Father Family Status - Relation Status Age at Mother Father [facility] 36on 12-10-2024 36 MD Aliya Lundberg MA Great - her s.cr is almost back to normal. Please reassure her. Thanks Spoke to patient, advised patient of lab results per Dr. Mccormick's request. Patient verbalized understanding [facility] 36on 12-09-2024 36 Regarding lab results [...] of care. No new medications per patient [facility] 36 Regarding lab results from 12/05/2024: [...] LM for patient to return my call. [facility] Telephoneon 12-09-2024 Telephone [id number] Danielle Montana 1965 F Date Provider Department Center 12/09/2024 [id number] WOOTEN [facility] Family History Problem Relation Age of Onset Coronary artery disease Father Family Status - Relation Status Age at Mother Father [facility] HPon 12-06-2024 HP History Of Present [...] Resource Strain: Low Risk (02/05/2024) Received from [facility] Overall Financial Resource Strain (CARDIA) Difficulty of Paying Living Expenses: Not very hard Food Insecurity: No Food Insecurity (02/05/2024) Received from [facility] Hunger Vital Sign Worried About Running Out of Food in the Last Year: Never true Ran Out of Food in the Last Year: Never true Transportation Needs: Unmet Transportation Needs (02/05/2024) Received from [facility] PRAPARE - Transportation Lack of Transportation (Medical): Yes Lack of Transportation (Non-Medical): No Physical Activity: Not on file Stress: Not on file Social Connections: Socially Isolated (02/05/2024) Received from [facility] Social Connection and Isolation Panel [NHANES] Frequency of Communication with Friends and Family: Twice a week Frequency of Social Gatherings with Friends and Family: Never Attends Orthodoxy Services: Never Active Member of Clubs or Organizations: No Attends Club or Organization Meetings: Never Marital Status: Intimate Partner Violence: Not At Risk (05/23/2024) Humiliation, Afraid, Rape, and Kick questionnaire Fear of Current or Ex-Partner: No Emotionally Abused: No Physically Abused: No Sexually Abused: No Housing Stability: Unknown (02/05/2024) Received from [facility] Housing Stability Vital Sign Unable [...] and agreed to proceed. 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 Normal [facility] NURSNOTEon 12-06-2024 NURSNOTE RN educated pt [...] any questions or concerns if pt verbalized. [facility] 36on 11-19-2024 36 Regarding stress test [...] it. Lab orders entered and faxed to [facility]. Patient verbalized understanding. [facility] Telephoneon 11-19-2024 Telephone [id number] Courtney Montanadevendra Bar 1965 F Date Provider Department [facility] 11/19/2024 928-ALISHA FORDE [facility] Family History Problem Relation Age of Onset Coronary artery disease Father Family Status - Relation Status Age at Mother Father [facility] Orders Onlyon 11-11-2024 Orders Only [id number] Danielle Montana Yosvany 1965 F Date Provider Department [facility] 11/11/2024 [id number], HISTORICAL JUAN C[facility] Family History Problem Relation Age of Onset Coronary artery disease Father Family Status - Relation Status Age at Mother Father [facility] Office Visiton 10-08-2024 Follow-up visit [id number] Danielle Montana Yosvany 1965 Date Provider Department Center 10/08/2024 271-MEHRDAD MCCORMICK Family History Problem Relation Age of Onset Coronary artery disease Father Family Status - Relation Status Age at Mother Father Level of Service:52026 [place] OFFICE/OUTPATIENT ESTABLISHED MOD MDM 30 MIN [facility] 36on 06-11-2024 36 [facility] is asking you amend your last office visit on 05/20/2024 and document the need for a BP cuff for this patient. Can you do that quick and let me know when it's done? Thank you so much!! :) [facility] Orders Onlyon 06-10-2024 Orders Only [id number] Danielle Montana Yosvany 1965 F Date Provider Department Center 06/10/2024 KEITH TIRADO CARD [facility] Family History Problem Relation Age of Onset Coronary artery disease Father Family Status - Relation Status Age at Father Normal [facility] Telephoneon 05-29-2024 Telephone [id number] DovDanielle mcclendon 1965 F Date Provider Department Center 05/29/2024 271-MEHRDAD MCCORMICK [facility] Family History Problem Relation Age of Onset Coronary artery disease Father Family Status - Relation Status Age at Father Normal [facility] Infusionon 05-23-2024 Infusion [id number] Danielle Montana 1965 F Date Provider Department Center 05/23/2024 [id number] CHAIR 9 DCC INF DCC Family History Problem Relation Age of Onset Coronary artery disease Father Family Status - Relation Status Age at Father Normal [facility] Office Visiton 05-20-2024 Follow-up visit [id number] Danielle Montana 1965 Date Provider Department Center 05/20/2024 271-MEHRDAD MCCORMICK [facility] Family History Problem Relation Age of Onset Coronary artery disease Father Family Status - Relation Status Age at Father Level of Service:48515 [place] OFFICE/OUTPATIENT ESTABLISHED MOD MDM 30 MIN [facility] 36on 03-07-2024 36 Called patient to reschedule their appointment scheduled for 03/[address] Daniels Result: left voicemail to reschedule [facility] BASIC METABOLIC PANLon 01-21 Anion gap [Moles/Vol] 9 mmol/L Normal 5-15 [facility] Comment on above: Performed By: #### C BCA, CMP, 28355-3 #### [facility] ([id number]) [address] [place] [address] 82951 Calcium [Mass/Vol] 9.5 mg/dL Normal 8.5-10.5 [facility] Comment on above: Performed By: #### C BCA, CMP, 41142-9 #### [facility] ([id number]) [address] [place] [address] 54808 Chloride [Moles/Vol] 101 mmol/L Normal 98-109 [facility] Comment on above: Performed By: #### C BCA, CMP, 73908-7 #### [facility] ([id number]) [address] [place] [address] 54444 CO2 [Moles/Vol] 31 mmol/L Normal 22-32 [facility] Comment on above: Performed By: #### C EDEL POOLE, 85057-8 #### [facility] ([id number]) [address] [place] [address] 00283 Creatinine [Mass/Vol] 1.63 mg/dL High 0.40-1.00 [facility] Comment on above: Result Comment: METH OD TRACEABLE TO IDMS STANDARD Performed By: #### C EDEL POOLE, 86795-5 #### [facility] ([id number]) [address] [place] [address] 97917 GFR/1.73 sq M.predicted among non-blacks MDRD (S/P/Bld) [Vol rate/Area] 36 mL/min/{1.73_m2} Low >59 [facility] Comment on above: Result Comment: Reported eGFR is based on the CKD-EPI 2020 equation that does not use a race coefficient. Performed By: #### C EDEL POOLE, #### [facility] ([id number]) [address] [place] [address] 60371 Glucose [Mass/Vol] 84 mg/dL Normal 65-99 [facility] Comment on above: Performed By: #### C EDEL POOLE, 82347-6 #### [facility] ([id number]) [address] [place] [address] 20829 Potassium [Moles/Vol] 4.3 mmol/L Normal 3.5-5.0 [facility] Comment on above: Performed By: #### C EDEL POOLE, 99656-8 #### [facility] ([id number]) [address] [place] [address] 31957 Sodium [Moles/Vol] 141 mmol/L Normal 134-146 [facility] Comment on above: Performed By: #### C EDEL POOLE, 96719-6 #### [facility] ([id number]) [address] [place] [address] 76464 Urea nitrogen [Mass/Vol] 34 mg/dL High 5-23 [facility] Comment on above: Performed By: #### C BCA, CMP, 59923-9 #### [facility] ([id number]) [address] [place] [address] [place] [address] BASIC METABOLIC PANLon 01-11 Anion gap [Moles/Vol] 12 mmol/L Normal 5-15 [facility] Comment on above: Performed By: #### 8 9579-7 #### [facility] ([id number]) [address] [place] [address] 85383 Calcium [Mass/Vol] 9.4 mg/dL Normal 8.5-10.5 [facility] Comment on above: Performed By: #### 8 9579-7 #### [facility] ([id number]) [address] [place] [address] 71384 Chloride [Moles/Vol] 104 mmol/L Normal 98-109 [facility] Comment on above: Performed By: #### 8 9579-7 #### [facility] ([id number]) [address] [place] [address] 71596 CO2 [Moles/Vol] 28 mmol/L Normal 22-32 [facility] Comment on above: Performed By: #### 8 9579-7 #### [facility] ([id number]) [address] [place] [address] 19839 Creatinine [Mass/Vol] 1.22 mg/dL High 0.40-1.00 [facility] Comment on above: Result Comment: METH OD TRACEABLE TO IDMS STANDARD Performed By: #### 8 9579-7 #### [facility] ([id number]) [address] [place] [address] [place] [address] GFR/1.73 sq M.predicted among non-blacks MDRD (S/P/Bld) [Vol rate/Area] 51 mL/min/{1.73_m2} Low >59 [facility] Comment on above: Result Comment: Reported eGFR is based on the CKD-EPI 2020 equation that does not use a race coefficient. Performed By: #### 8 9579-7 #### [facility] ([id number]) [address] [place] [address] 45918 Glucose [Mass/Vol] 100 mg/dL High 65-99 [facility] Comment on above: Performed By: #### 8 9579-7 #### [facility] ([id number]) [address] [place] [address] 51179 Potassium [Moles/Vol] 3.8 mmol/L Normal 3.5-5.0 [facility] Comment on above: Performed By: #### 8 9579-7 #### [facility] ([id number]) [address] [place] [address] 98160 Sodium [Moles/Vol] 144 mmol/L Normal 134-146 [facility] Comment on above: Performed By: #### 8 9579-7 #### [facility] ([id number]) [address] [place] [address] 14060 Urea nitrogen [Mass/Vol] 17 mg/dL Normal 5-23 [facility] Comment on above: Performed By: #### 8 9579-7 #### [facility] ([id number]) [address] [place] [address] 60357 COMPLETE BLOOD COUNTon 01-11 Erythrocyte distribution width (RBC) [Ratio] 16.7 % High 11.5-15.0 [facility] Comment on above: Performed By: #### 8 9579-7 #### [facility] ([id number]) [address] [place] [address] 47158 Hematocrit (Bld) [Volume fraction] 33.6 % Low 35-47 [facility] Comment on above: Performed By: #### 8 9579-7 #### [facility] ([id number]) [address] [place] [address] 62663 Hemoglobin (Bld) [Mass/Vol] 11.2 g/dL Low 11.7-15.5 [facility] Comment on above: Performed By: #### 8 9579-7 #### [facility] ([id number]) [address] [place] [address] 14075 MCH (RBC) [Entitic mass] 28.8 pg Normal 27-34 [facility] Comment on above: Performed By: #### 8 9579-7 #### [facility] ([id number]) [address] [place] [address] 94273 MCHC (RBC) [Mass/Vol] 33.3 g/dL Normal 32-36 [facility] Comment on above: Performed By: #### 8 9579-7 #### [facility] ([id number]) [address] [place] [address] 87970 MCV (RBC) [Entitic vol] 87 fL Normal 80-100 [facility] Comment on above: Performed By: #### 8 9579-7 #### [facility] ([id number]) [address] [place] [address] 42460 Platelet mean volume (Bld) [Entitic vol] 9.7 fL Normal 7-12 [facility] Comment on above: Performed By: #### 8 9579-7 #### [facility] ([id number]) [address] [place] [address] 21294 Platelets (Bld) [#/Vol] 268 10*3/uL Normal 150-450 [facility] Comment on above: Performed By: #### 8 9579-7 #### [facility] ([id number]) [address] [place] [address] 31201 RBC COUNT 3.88 X10E12/L Normal 3.80-5.20 [facility] Comment on above: Performed By: #### 8 9579-7 #### [facility] ([id number]) [address] [place] [address] 73308 WBC (Bld) [#/Vol] 8.8 10*3/uL Normal 4.0-11.0 [facility] Comment on above: Performed By: #### 8 9579-7 #### [facility] ([id number]) [address] [place] [address] 91857 Creatinine (U) [Mass/Vol]on 01-12-2024 URINE CREATININE,RDM 107.95 mg/dL Normal Pr [facility] Comment on above: Performed By: #### Shahla POOLE [facility], #### [facility] ([id number]) [address] [place] [address] 85472 HBV core Ab IA Qlon 01-12-20 ANTI HBc Negative Normal NEG [facility] Comment on above: Performed By: #### Shahla POOLE [facility], #### [facility] ([id number]) [address] [place] [address] 98304 HBV surface Ab IA Qnon 01-11 Anti HBs quant. <8.00 Normal [facility] Comment on above: Result Comment: Vacc inated: >=12mIU/mL, Positive (Immune) Unvaccinated: <8mIU/mL, Negative (Not Immune) 8-11.99 mIU/mL: Indeterminate, (Considered Not Immune) Performed By: #### Shahla POOLE CMP, #### [facility] ([id number]) [address] [place] [address] 68046 HBV surface Ag IA Qlon 01-11 HEPATITIS B SURF AG Negative Normal NEG [facility] Comment on above: Performed By: #### C EDEL POOLE, 60547-3 #### [facility] ([id number]) [address] [place] [address] 48439 MAGNESIUMon 01-12-2024 Magnesium [Mass/Vol] 1.6 mg/dL Low 1.8-2.6 [facility] Comment on above: Performed By: #### 8 9579-7 #### [facility] ([id number]) [address] [place] [address] 01954 PHOSPHORUSon 01-12-2024 Phosphate [Mass/Vol] 3.6 mg/dL Normal 2.4-4.9 [facility] Comment on above: Performed By: #### 8 9579-7 #### [facility] ([id number]) [address] [place] [address] 24663 PROTEIN CREAT RATIOon 2023 RANDOM URINE PROTEIN 4520 mg/L High <120 [facility] Comment on above: Performed By: #### C VIRGILIO [facility], 30736-3 #### [facility] ([id number]) [address] [place] [address] 61346 U/PRO/MAIL MESSENGER RATIO CALC 4.15 High <0.2 [facility] Comment on above: Result Comment: Neph rotic Syndrome is associated with ratios >3.5 Performed By: #### C EDEL POOLE, 64580-4 #### [facility] ([id number]) [address] [place] [address] 01128 URINE CREATININE,RDM 108.96 mg/dL Normal Pr [facility] Comment on above: Performed By: #### C EDLE POOLE, 33743-8 #### [facility] ([id number]) [address] [place] [address] 05584 Parathyrin.intact [Mass/Vol] on 01-12-2024 PTH INTACT 69 pg/mL Normal 12-88 [facility] Comment on above: Performed By: #### C BCA, CMP, 23111-3 #### [facility] ([id number]) [address] [place] [address] 08911 Protein (U) [Mass/Vol]on RANDOM URINE PROTEIN 4560 mg/L High <120 [facility] Comment on above: Performed By: #### C BCA, CMP, #### [facility] ([id number]) [address] [place] [address] [place] [address] URINALYSISon 01-12-2024 Bilirubin Ql (U) Negative Normal NEG [facility] Comment on above: Performed By: #### C BCA, CMP, #### [facility] ([id number]) [address] [place] [address] 12966 BLOOD/HGB Small Abnormal NEG [facility] Comment on above: Performed By: #### C BCA, CMP, 14779-0 #### [facility] ([id number]) [address] [place] [address] 41928 Color (U) YELLOW Normal YELLOW [facility] Comment on above: Performed By: #### C BCA, CMP, 87544-3 #### [facility] ([id number]) [address] [place] [address] 42207 Glucose Ql (U) Negative Normal NEG [facility] Comment on above: Performed By: #### C BCA, CMP, 71267-6 #### [facility] ([id number]) [address] [place] [address] 05632 Hyaline casts LM Ql (Urine sed) 1 /lpf Normal 0-2 [facility] Comment on above: Performed By: #### C BCA, CMP, 39246-3 #### [facility] ([id number]) [address] [place] [address], [place] [address] Ketones Ql (U) Negative Normal NEG [facility] Comment on above: Performed By: #### C VIRGILIO CMP, 69634-9 #### [facility] ([id number]) [address] [place] [address] 31666 Leukocyte esterase Test strip Ql (U) Negative Normal NEG [facility] Comment on above: Performed By: #### Shahla POOLE CMP, 02301-3 #### [facility] ([id number]) [address] [place] [address] 81101 MUCOUS PRESENT Abnormal NONE [facility] Comment on above: Performed By: #### C VIRGILIO CMP, 91188-6 #### [facility] ([id number]) [address] [place] [address] 87106 Nitrite Ql (U) Negative Normal NEG [facility] Comment on above: Performed By: #### C VIRGILIO [facility], 72849-6 #### [facility] ([id number]) [address] [place] [address] 55484 pH (U) 6.5 [pH] Normal 5.0-8.5 [facility] Comment on above: Performed By: #### C VIRGILIO, CMP, 59398-5 #### [facility] ([id number]) [address] [place] [address] 30488 Protein Ql (U) 300 mg/dL Abnormal NEG [facility] Comment on above: Performed By: #### C VIRGILIO, CMP, 27041-0 #### [facility] ([id number]) [address] [place] [address] 33326 R.B.CELLS 0 /hpf Normal 0-5 [facility] Comment on above: Performed By: #### C VIRGILIO, CMP, 03419-5 #### [facility] ([id number]) [address] [place] [address] 80025 Specific gravity (U) [Rel density] 1.015 Normal 1.003-1.03 5 [facility] Comment on above: Performed By: #### Shahla POOLE [facility], 22363-3 #### [facility] ([id number]) [address] [place] [address] 46954 SQUAMOUS EPITHELIUM 1 /hpf Normal 0-5 [facility] Comment on above: Performed By: #### Shahla POOLE [facility], 44935-2 #### [facility] ([id number]) [address] [place] [address] 84719 TURBIDITY CLEAR Normal CLEAR [facility] Comment on above: Performed By: #### Shahla POOLE [facility], 05320-1 #### [facility] ([id number]) [address] [place] [address] 17723 Urobilinogen (U) [Mass/Vol] mg/dL Normal <1.1 [facility] Comment on above: Performed By: #### Shahla POOLE [facility], 31095-2 #### [facility] ([id number]) [address] [place] [address] 25379 W.B.CELLS 2 /hpf Normal 0-5 [facility] Comment on above: Performed By: #### Shahla POOLE [facility], 43688-1 #### [facility] ([id number]) [address] [place] [address] 21928 Vitamin D+Metabolites [Mass/ Vol]on 01-12-2024 VITAMIN D 25 HYD TOT 23.5 ng/mL Low 30-100 [facility] Comment on above: Result Comment: Vitamin D status 25 [place] Vitamin D Deficiency <20 ng/mL Insufficiency 20-29 ng/mL Sufficiency 30-100 ng/mL Toxicity >100 ng/mL NOTE: A pediatric reference range has not been established by the field assistant of this kit. The [place] [employer] recommends a Vitamin D level of = or >20ng/mL in infants and children. Performed By: #### Shahla POOLE CMP, #### [facility] ([id number]) [address] [place] [address], [place] [address] COMPLETE BLOOD COUNTon 12-18 Erythrocyte distribution width (RBC) [Ratio] 16.7 % High 11.5-15.0 [facility] Comment on above: Performed By: #### C EDEL POOLE, , 2776-04, 1987-08 #### [facility] ([id number]) [address], [address] [place] [address] Hematocrit (Bld) [Volume fraction] 30.1 % Low 35-47 [facility] Comment on above: Performed By: #### Shahla POOLE CMP, , 2776-04, 1987-08 #### [facility] ([id number]) [address], [address] [place] [address] Hemoglobin (Bld) [Mass/Vol] 9.6 g/dL Low 11.7-15.5 [facility] Comment on above: Performed By: #### Shahla POOLE CMP, , 2776-04, 1987-08 #### [facility] ([id number]) [address], [address] [place] [address] MCH (RBC) [Entitic mass] 27.3 pg Normal 27-34 [facility] Comment on above: Performed By: #### Shahla POOLE CMP, , 2776-04, 1987-08 #### [facility] ([id number]) [address], [address] [place] [address] MCHC (RBC) [Mass/Vol] 32.0 g/dL Normal 32-36 [facility] Comment on above: Performed By: #### Shahla POOLE CMP, , 2776-04, 1987-08 #### [facility] ([id number]) [address], [address] [place] [address] MCV (RBC) [Entitic vol] 86 fL Normal 80-100 [facility] Comment on above: Performed By: #### C BCA, CMP, , 2776-04, 1987-08 #### [facility] ([id number]) [address], [address] [place] [address] Platelet mean volume (Bld) [Entitic vol] 9.1 fL Normal 7-12 [facility] Comment on above: Performed By: #### C BCA, CMP, , 2776-04, 1987-08 #### [facility] ([id number]) [address], [address] [place] [address] Platelets (Bld) [#/Vol] 361 10*3/uL Normal 150-450 [facility] Comment on above: Performed By: #### C BCA, CMP, , 2776-04, 1987-08 #### [facility] ([id number]) [address], [address] [place] [address] RBC COUNT 3.52 X10E12/L Low 3.80-5.20 [facility] Comment on above: Performed By: #### C BCA, CMP, , 2776-04, 1987-08 #### [facility] ([id number]) [address], [address] [place] [address] WBC (Bld) [#/Vol] 8.2 10*3/uL Normal 4.0-11.0 [facility] Comment on above: Performed By: #### C BCA, CMP, , 2776-04, 1987-08 #### [facility] ([id number]) [address], [address] [place] [address] COMPREHENSIVE METABOLIC PANE Phu 12-19-2023 Albumin [Mass/Vol] 3.4 g/dL Normal 3.2-5.3 [facility] Comment on above: Performed By: #### C BCA, CMP, , 2776-04, 1987-08 #### [facility] ([id number]) [address], [address] [place] [address] ALP [Catalytic activity/Vol] 60 U/L Normal 39-130 [facility] Comment on above: Performed By: #### C BCA, CMP, , 2776-04, 1987-08 #### [facility] ([id number]) [address], [address] [place] [address] ALT [Catalytic activity/Vol] 12 U/L Normal 0-31 [facility] Comment on above: Performed By: #### C BCA, CMP, , 2776-04, 1987-08 #### [facility] ([id number]) [address], [address] [place] [address] Anion gap [Moles/Vol] 9 mmol/L Normal 5-15 [facility] Comment on above: Performed By: #### C BCA, CMP, , 2776-04, 1987-08 #### [facility] ([id number]) [address], [address] [place] [address] AST [Catalytic activity/Vol] 13 U/L Normal 0-41 [facility] Comment on above: Performed By: #### C BCA, CMP, , 2776-04, 1987-08 #### [facility] ([id number]) [address], [address] [place] [address] Bilirubin [Mass/Vol] 0.4 mg/dL Normal 0.3-1.2 [facility] Comment on above: Performed By: #### C BCA, CMP, , 2776-04, 1987-08 #### [facility] ([id number]) [address], [address] [place] [address] Calcium [Mass/Vol] 9.5 mg/dL Normal 8.5-10.5 [facility] Comment on above: Performed By: #### C BCA, CMP, , 2776-04, 1987-08 #### [facility] ([id number]) [address], [address] [place] [address] Chloride [Moles/Vol] 105 mmol/L Normal 98-109 [facility] Comment on above: Performed By: #### C BCA, CMP, , 2776-04, 1987-08 #### [facility] ([id number]) [address], [address] [place] [address] CO2 [Moles/Vol] 28 mmol/L Normal 22-32 [facility] Comment on above: Performed By: #### C BCA, CMP, , 2776-04, 1987-08 #### [facility] ([id number]) [address], [address] [place] [address] Creatinine [Mass/Vol] 1.23 mg/dL High 0.40-1.00 [facility] Comment on above: Result Comment: METH OD TRACEABLE TO IDMS STANDARD Performed By: #### C BCA, CMP, , 2776-04, 1987-08 #### [facility] ([id number]) [address], [address] [place] [address] GFR/1.73 sq M.predicted among non-blacks MDRD (S/P/Bld) [Vol rate/Area] 51 mL/min/{1.73_m2} Low >59 [facility] Comment on above: Result Comment: Reported eGFR is based on the CKD-EPI 2020 equation that does not use a race coefficient. Performed By: #### C BCA, CMP, , 2776-04, 1987-08 #### [facility] ([id number]) [address], [address] [place] [address] Glucose [Mass/Vol] 89 mg/dL Normal 65-99 [facility] Comment on above: Performed By: #### C BCA, CMP, , 2776-04, 1987-08 #### [facility] ([id number]) [address], [address] [place] [address] Potassium [Moles/Vol] 4.9 mmol/L Normal 3.5-5.0 [facility] Comment on above: Performed By: #### C BCA, CMP, , 2776-04, 1987-08 #### [facility] ([id number]) [address], [address] [place] [address] Protein [Mass/Vol] 6.0 g/dL Normal 6.0-8.0 [facility] Comment on above: Performed By: #### C BCA, CMP, , 2776-04, 1987-08 #### [facility] ([id number]) [address], [address] [place] [address] Sodium [Moles/Vol] 142 mmol/L Normal 134-146 [facility] Comment on above: Performed By: #### C BCA, CMP, , 2776-04, 1987-08 #### [facility] ([id number]) [address], [address] [place] [address] Urea nitrogen [Mass/Vol] 21 mg/dL Normal 5-23 [facility] Comment on above: Performed By: #### C BCA, CMP, , 2776-04, 1987-08 #### [facility] ([id number]) [address], [address] [place] [address] CRP [Mass/Vol]on 12-19-2023 C REACTIVE PROTEIN 0.8 mg/dL High 0.000-0.7 4 4 [facility] Comment on above: Performed By: #### C VIRGILIO CMP, , 2776-04, 1987-08 #### [facility] ([id number]) [address], [address] [place] [address] ESR Photometric method (Bld) [Velocity]on 12-19-2023 ESR, ERYTHROCYTE SEDIMENTATION RATE 67 mm/h High 0-30 [facility] Comment on above: Performed By: #### C VIRGILIO, CMP, , 2776-04, 1987-08 #### [facility] ([id number]) [address], [address] [place] [address] Neutrophil cytoplasmic Ab pa selvin IF (S)on 12-19-2023 c-ANCA Negative Normal Negative [facility] Comment on above: Performed By: #### C VIRGILIO EDEL, , 2776-04, 1987-08 #### [facility] ([id number]) [address], [address] [place] [address] p-ANCA Positive Abnormal Negative [facility] Comment on above: Result Comment: NOTE Positive for pANCA pattern by immunofluorescence. Suggest further testing for anti-myeloperoxidase (anti-MPO) antibodies, if clinically indicated. ADDITIONAL INFORMATION This test was developed and its performance characteristics determined by [facility] in a manner consistent with CLIA requirements. This test has not been cleared or approved by the U.S. Food and Drug Administration. Test Performed by: [facility] [address] [place] [address] Claims Representative: Ledy Son Ph.D.; CLIA# [id number] Performed By: #### C VIRGILIO, CMP, , 2776-04, 1987-08 #### [facility] ([id number]) [address], [address] [place] [address] CBC AND AUTO DIFFon 11-07-19 24 ABSOLUTE BASOPHIL 0.0 X10E9/L Normal 0.0-0.2 [facility] Comment on above: Performed By: #### C BCA, CMP, , 2776-04, 1987-08 #### [facility] ([id number]) [address], [address] [place] [address] ABSOLUTE NEUTROPHIL 12.2 X10E9/L High 1.5-6.6 Pro [facility] Comment on above: Performed By: #### C BCA, CMP, , 2776-04, 1987-08 #### [facility] ([id number]) [address], [address] [place] [address] Basophils/100 WBC (Bld) 0.2 % Normal [facility] Comment on above: Performed By: #### C BCA, CMP, , 2776-04, 1987-08 #### [facility] ([id number]) [address], [address] [place] [address] Eosinophils (Bld) [#/Vol] 0.0 10*3/uL Normal 0.0-0.4 [facility] Comment on above: Performed By: #### C BCA, CMP, , 2776-04, 1987-08 #### [facility] ([id number]) [address], [address] [place] [address] Eosinophils/100 WBC (Bld) 0.0 % Normal [facility] Comment on above: Performed By: #### C BCA, CMP, , 2776-04, 1987-08 #### [facility] ([id number]) [address], [address] [place] [address] Erythrocyte distribution width (RBC) [Ratio] 15.6 % High 11.5-15.0 [facility] Comment on above: Performed By: #### C BCA, CMP, , 2776-04, 1987-08 #### [facility] ([id number]) [address], [address] [place] [address] Hematocrit (Bld) [Volume fraction] 32.0 % Low 35-47 [facility] Comment on above: Performed By: #### Shahla POOLE CMP, , 2776-04, 1987-08 #### [facility] ([id number]) [address], [address] [place] [address] Hemoglobin (Bld) [Mass/Vol] 10.4 g/dL Low 11.7-15.5 [facility] Comment on above: Performed By: #### Shahla POOLE CMP, , 2776-04, 1987-08 #### [facility] ([id number]) [address], [address] [place] [address] Lymphocytes (Bld) [#/Vol] 0.3 10*3/uL Low 1.0-3.5 [facility] Comment on above: Performed By: #### Shahla POOLE CMP, , 2776-04, 1987-08 #### [facility] ([id number]) [address], [address] [place] [address] Lymphocytes/100 WBC (Bld) 2.6 % Normal [facility] Comment on above: Performed By: #### Shahla POOLE CMP, , 2776-04, 1987-08 #### [facility] ([id number]) [address], [address] [place] [address] MCH (RBC) [Entitic mass] 27.6 pg Normal 27-34 [facility] Comment on above: Performed By: #### Shahla BCA, CMP, , 2776-04, 1987-08 #### [facility] ([id number]) [address], [address] [place] [address] MCHC (RBC) [Mass/Vol] 32.4 g/dL Normal 32-36 [facility] Comment on above: Performed By: #### C BCA, CMP, , 2776-04, 1987-08 #### [facility] ([id number]) [address], [address] [place] [address] MCV (RBC) [Entitic vol] 85 fL Normal 80-100 [facility] Comment on above: Performed By: #### Shahla BCA, CMP, , 2776-04, 1987-08 #### [facility] ([id number]) [address], [address] [place] [address] Monocytes (Bld) [#/Vol] 0.2 10*3/uL Normal 0-0.9 [facility] Comment on above: Performed By: #### Shahla BCA, CMP, , 2776-04, 1987-08 #### [facility] ([id number]) [address], [address] [place] [address] Monocytes/100 WBC (Bld) 1.8 % Normal [facility] Comment on above: Performed By: #### Shahla POOLE, CMP, , 2776-04, 1987-08 #### [facility] ([id number]) [address], [address] [place] [address] Neutrophils/100 WBC (Bld) 95.4 % Normal [facility] Comment on above: Performed By: #### Shahla BCA, CMP, , 2776-04, 1987-08 #### [facility] ([id number]) [address], [address] [place] [address] Platelet mean volume (Bld) [Entitic vol] 9.1 fL Normal 7-12 [facility] Comment on above: Performed By: #### Shahla BCA, CMP, , 2776-04, 1987-08 #### [facility] ([id number]) [address], [address] [place] [address] Platelets (Bld) [#/Vol] 183 10*3/uL Normal 150-450 [facility] Comment on above: Performed By: #### C BCA, CMP, , 2776-04, 1987-08 #### [facility] ([id number]) [address], [address] [place] [address] RBC COUNT 3.76 X10E12/L Low 3.80-5.20 [facility] Comment on above: Performed By: #### C BCA, CMP, , 2776-04, 1987-08 #### [facility] ([id number]) [address], [address] [place] [address] WBC (Bld) [#/Vol] 12.8 10*3/uL High 4.0-11.0 [facility] Comment on above: Performed By: #### C BCA, CMP, , 2776-04, 1987-08 #### [facility] ([id number]) [address], [address] [place] [address] COMPREHENSIVE METABOLIC PANE Phu 11-07-2023 Albumin [Mass/Vol] 3.5 g/dL Normal 3.2-5.3 [facility] Comment on above: Performed By: #### C BCA, CMP, , 2776-04, 1987-08 #### [facility] ([id number]) [address], [address] [place] [address] ALP [Catalytic activity/Vol] 46 U/L Normal 39-130 [facility] Comment on above: Performed By: #### C BCA, CMP, , 2776-04, 1987-08 #### [facility] ([id number]) [address], [address] [place] [address] ALT [Catalytic activity/Vol] 31 U/L Normal 0-31 [facility] Comment on above: Performed By: #### C BCA, CMP, , 2776-04, 1987-08 #### [facility] ([id number]) [address], [address] [place] [address] Anion gap [Moles/Vol] 9 mmol/L Normal 5-15 [facility] Comment on above: Performed By: #### C BCA, CMP, , 2776-04, 1987-08 #### [facility] ([id number]) [address] [place] [address] AST [Catalytic activity/Vol] 10 U/L Normal 0-41 [facility] Comment on above: Performed By: #### C BCA, CMP, , 2776-04, 1987-08 #### [facility] ([id number]) [address], [address] [place] [address] Bilirubin [Mass/Vol] 0.5 mg/dL Normal 0.3-1.2 [facility] Comment on above: Performed By: #### C BCA, CMP, , 2776-04, 1987-08 #### [facility] ([id number]) [address], [address] [place] [address] Calcium [Mass/Vol] 9.1 mg/dL Normal 8.5-10.5 [facility] Comment on above: Performed By: #### C BCA, CMP, , 2776-04, 1987-08 #### [facility] ([id number]) [address] [place] [address] Chloride [Moles/Vol] 104 mmol/L Normal 98-109 [facility] Comment on above: Performed By: #### C BCA, CMP, , 2776-04, 1987-08 #### [facility] ([id number]) [address], [address] [place] [address] CO2 [Moles/Vol] 26 mmol/L Normal 22-32 [facility] Comment on above: Performed By: #### C BCA, CMP, , 2776-04, 1987-08 #### [facility] ([id number]) [address], [address] [place] [address] Creatinine [Mass/Vol] 1.60 mg/dL High 0.40-1.00 [facility] Comment on above: Result Comment: METH OD TRACEABLE TO IDMS STANDARD Performed By: #### C VIRGILIO, CMP, , 2776-04, 1987-08 #### [facility] ([id number]) [address] [place] [address] GFR/1.73 sq M.predicted among non-blacks MDRD (S/P/Bld) [Vol rate/Area] 37 mL/min/{1.73_m2} Low >59 [facility] Comment on above: Result Comment: Reported eGFR is based on the CKD-EPI 2020 equation that does not use a race coefficient. Performed By: #### C VIRGILIO, CMP, , 2776-04, 1987-08 #### [facility] ([id number]) [address], [address] [place] [address] Glucose [Mass/Vol] 119 mg/dL High 65-99 [facility] Comment on above: Performed By: #### C VIRGILIO, CMP, , 2776-04, 1987-08 #### [facility] ([id number]) [address], [address] [place] [address] Potassium [Moles/Vol] 5.2 mmol/L High 3.5-5.0 [facility] Comment on above: Performed By: #### C BCA, CMP, , 2776-04, 1987-08 #### [facility] ([id number]) [address], [address] [place] [address] Protein [Mass/Vol] 5.3 g/dL Low 6.0-8.0 [facility] Comment on above: Performed By: #### C BCA, CMP, , 2776-04, 1987-08 #### [facility] ([id number]) [address], [address] [place] [address] Sodium [Moles/Vol] 139 mmol/L Normal 134-146 [facility] Comment on above: Performed By: #### C BCA, CMP, , 2776-04, 1987-08 #### [facility] ([id number]) [address], [address] [place] [address] Urea nitrogen [Mass/Vol] 52 mg/dL High 5-23 [facility] Comment on above: Performed By: #### C BCA, CMP, , 2776-04, 1987-08 #### [facility] ([id number]) [address], [address] [place] [address] M. tuberculosis stim IFN-g p tiffanie (Bld)on 11-07-2023 Mitogen minus Nil Result 0.07 IU/mL Normal [facility] Nil Result 0.01 IU/mL Normal [facility] Comment on above: Result Comment: NOTE Test Performed by: [facility] [address] [place] [address] Claims Representative: Ledy Son Ph.D.; CLIA# [id number] QuantiFERON-Tb Gold Plus Result Indeterminate Abnormal Negative [facility] Comment on above: Result Comment: NOTE Indeterminate due to a low interferon-gamma level in the mitogen (positive control) tube. This may occur due to a low lymphocyte count, reduced lymphocyte activity or inability of the patient's lymphocytes to generate interferon-gamma. The reference range for the 'Mitogen minus Nil Result' is >=0.5 IU/mL. TB1 Ag minus Nil Result 0.00 IU/mL Normal [facility] TB2 Ag minus Nil Result 0.00 IU/mL Normal [facility] BASIC METABOLIC PANLon 11-01 Anion gap [Moles/Vol] 9 mmol/L Normal 5-15 [facility] Comment on above: Performed By: #### 8 9579-7 #### [facility] ([id number]) [address] [place] [address] Calcium [Mass/Vol] 8.5 mg/dL Normal 8.5-10.5 [facility] Comment on above: Performed By: #### 8 9579-7 #### [facility] ([id number]) [address] [place] [address] Chloride [Moles/Vol] 108 mmol/L Normal 98-109 [facility] Comment on above: Performed By: #### 8 9579-7 #### [facility] ([id number]) [address] [place] [address] CO2 [Moles/Vol] 24 mmol/L Normal 22-32 [facility] Comment on above: Performed By: #### 8 9579-7 #### [facility] ([id number]) [address] [place] [address] Creatinine [Mass/Vol] 1.59 mg/dL High 0.40-1.00 [facility] Comment on above: Result Comment: METH OD TRACEABLE TO IDMS STANDARD Performed By: #### 8 9579-7 #### [facility] ([id number]) [address] [place] [address] GFR/1.73 sq M.predicted among non-blacks MDRD (S/P/Bld) [Vol rate/Area] 37 mL/min/{1.73_m2} Low >59 [facility] Comment on above: Result Comment: Reported eGFR is based on the CKD-EPI 1 equation that does not use a race coefficient. Performed By: #### 8 9579-7 #### [facility] ([id number]) [address] [place] [address]69 Glucose [Mass/Vol] 109 mg/dL High 65-99 [facility] Comment on above: Performed By: #### 8 9579-7 #### [facility] ([id number]) [address] [place] [address]6563 Potassium [Moles/Vol] 3.9 mmol/L Normal 3.5-5.0 [facility] Comment on above: Performed By: #### 8 9579-7 #### [facility] ([id number]) [address] [place] [address]32 Sodium [Moles/Vol] 141 mmol/L Normal 134-146 [facility] Comment on above: Performed By: #### 8 9579-7 #### [facility] ([id number]) [address] [place] [address]135 Urea nitrogen [Mass/Vol] 40 mg/dL High 5-23 [facility] Comment on above: Performed By: #### 8 9579-7 #### [facility] ([id number]) [address] [place] [address] CBC AND AUTO DIFFon 10-25-19 24 ABSOLUTE BASOPHIL 0.1 X10E9/L Normal 0.0-0.2 [facility] Comment on above: Performed By: #### C VIRGILIO, CMP, , 2776-04, 1987-08 #### [facility] ([id number]) [address], [address] [place] [address] ABSOLUTE NEUTROPHIL 6.5 X10E9/L Normal 1.5-6.6 [facility] Comment on above: Performed By: #### C BCA, CMP, , 2776-04, 1987-08 #### [facility] ([id number]) [address], [address] [place] [address] Basophils/100 WBC (Bld) 0.6 % Normal [facility] Comment on above: Performed By: #### C BCA, CMP, , 2776-04, 1987-08 #### [facility] ([id number]) [address] [address] [place] [address] Eosinophils (Bld) [#/Vol] 0.0 10*3/uL Normal 0.0-0.4 [facility] Comment on above: Performed By: #### C BCA, CMP, , 2776-04, 1987-08 #### [facility] ([id number]) [address] [place] [address] Eosinophils/100 WBC (Bld) 0.4 % Normal [facility] Comment on above: Performed By: #### C BCA, CMP, , 2776-04, 1987-08 #### [facility] ([id number]) [address] [place] [address] Erythrocyte distribution width (RBC) [Ratio] 14.5 % Normal 11.5-15.0 [facility] Comment on above: Performed By: #### Shahla POOLE, CMP, , 2776-04, 1987-08 #### [facility] ([id number]) [address] [address] [place] [address] Hematocrit (Bld) [Volume fraction] 30.5 % Low 35-47 [facility] Comment on above: Performed By: #### C BCA, CMP, , 2776-04, 1987-08 #### [facility] ([id number]) [address], [address] [place] [address] Hemoglobin (Bld) [Mass/Vol] 10.5 g/dL Low 11.7-15.5 [facility] Comment on above: Performed By: #### C BCA, CMP, , 2776-04, 1987-08 #### [facility] ([id number]) [address] [place] [address] Lymphocytes (Bld) [#/Vol] 1.4 10*3/uL Normal 1.0-3.5 [facility] Comment on above: Performed By: #### Shahla POOLE CMP, , 2776-04, 1987-08 #### [facility] ([id number]) [address] [address] Lymphocytes/100 WBC (Bld) 16.2 % Normal [facility] Comment on above: Performed By: #### Shahla POOLE, CMP, , 2776-04, 1987-08 #### [facility] ([id number]) [address] [address] MCH (RBC) [Entitic mass] 28.5 pg Normal 27-34 [facility] Comment on above: Performed By: #### Shahla BCA, CMP, , 2776-04, 1987-08 #### [facility] ([id number]) [address] [address] MCHC (RBC) [Mass/Vol] 34.4 g/dL Normal 32-36 [facility] Comment on above: Performed By: #### Shahla BCA, CMP, , 2776-04, 1987-08 #### [facility] ([id number]) [address] [address] MCV (RBC) [Entitic vol] 83 fL Normal 80-100 [facility] Comment on above: Performed By: #### Shahla BCA, CMP, , 2776-04, 1987-08 #### [facility] ([id number]) [address] [address] Monocytes (Bld) [#/Vol] 0.5 10*3/uL Normal 0-0.9 [facility] Comment on above: Performed By: #### Shahla BCA, CMP, , 2776-04, 1987-08 #### [facility] ([id number]) [address] [place] [address] Monocytes/100 WBC (Bld) 5.9 % Normal [facility] Comment on above: Performed By: #### Shahla BCA, CMP, , 2776-04, 1987-08 #### [facility] ([id number]) [address] [place] [address] Neutrophils/100 WBC (Bld) 76.9 % Normal [facility] Comment on above: Performed By: #### Shahla BCA, CMP, , 2776-04, 1987-08 #### [facility] ([id number]) [address] [place] [address] Platelet mean volume (Bld) [Entitic vol] 9.1 fL Normal 7-12 [facility] Comment on above: Performed By: #### Shahla BCA, CMP, , 2776-04, 1987-08 #### [facility] ([id number]) [address] [place] [address] Platelets (Bld) [#/Vol] 248 10*3/uL Normal 150-450 [facility] Comment on above: Performed By: #### Shahla BCA, CMP, , 2776-04, 1987-08 #### [facility] ([id number]) [address] [place] [address] RBC COUNT 3.68 X10E12/L Low 3.80-5.20 [facility] Comment on above: Performed By: #### Shahla BCA, CMP, , 2776-04, 1987-08 #### [facility] ([id number]) [address] [place] [address] RBC morphology finding Nom (Bld) REVIEWED Normal [facility] Comment on above: Performed By: #### C BCA, CMP, , 2776-04, 1987-08 #### [facility] ([id number]) [address] [place] [address] WBC (Bld) [#/Vol] 8.4 10*3/uL Normal 4.0-11.0 [facility] Comment on above: Performed By: #### C BCA, CMP, , 2776-04, 1987-08 #### [facility] ([id number]) [address] [place] [address] COMPREHENSIVE METABOLIC PANE Phu 10-25-2023 Albumin [Mass/Vol] 3.1 g/dL Low 3.2-5.3 [facility] Comment on above: Performed By: #### C BCA, CMP, , 2776-04, 1987-08 #### [facility] ([id number]) [address] [place] [address] ALP [Catalytic activity/Vol] 35 U/L Low 39-130 [facility] Comment on above: Performed By: #### C BCA, CMP, , 2776-04, 1987-08 #### [facility] ([id number]) [address] [place] [address] ALT [Catalytic activity/Vol] 8 U/L Normal 0-31 [facility] Comment on above: Performed By: #### C BCA, CMP, , 2776-04, 1987-08 #### [facility] ([id number]) [address] [place] [address] Anion gap [Moles/Vol] 9 mmol/L Normal 5-15 [facility] Comment on above: Performed By: #### C BCA, CMP, , 2776-04, 1987-08 #### [facility] ([id number]) [address] [place] [address] AST [Catalytic activity/Vol] 10 U/L Normal 0-41 [facility] Comment on above: Performed By: #### C BCA, CMP, , 2776-04, 1987-08 #### [facility] ([id number]) [address] [place] [address] Bilirubin [Mass/Vol] 0.3 mg/dL Normal 0.3-1.2 [facility] Comment on above: Performed By: #### C BCA, CMP, , 2776-04, 1987-08 #### [facility] ([id number]) [address] [place] [address] Calcium [Mass/Vol] 8.6 mg/dL Normal 8.5-10.5 [facility] Comment on above: Performed By: #### C BCA, CMP, , 2776-04, 1987-08 #### [facility] ([id number]) [address] [place] [address] Chloride [Moles/Vol] 106 mmol/L Normal 98-109 [facility] Comment on above: Performed By: #### C BCA, CMP, , 2776-04, 1987-08 #### [facility] ([id number]) [address] [place] [address] CO2 [Moles/Vol] 25 mmol/L Normal 22-32 [facility] Comment on above: Performed By: #### C BCA, CMP, , 2776-04, 1987-08 #### [facility] ([id number]) [address] [place] [address] Creatinine [Mass/Vol] 2.12 mg/dL High 0.40-1.00 [facility] Comment on above: Result Comment: METH OD TRACEABLE TO IDMS STANDARD Performed By: #### C BCA, CMP, , 2776-04, 1987-08 #### [facility] ([id number]) [address], [facility] [address] [place] [address] GFR/1.73 sq M.predicted among non-blacks MDRD (S/P/Bld) [Vol rate/Area] 26 mL/min/{1.73_m2} Low >59 [facility] Comment on above: Result Comment: Reported eGFR is based on the CKD-EPI 2020 equation that does not use a race coefficient. Performed By: #### C VIRGILIO CMP, , 2776-04, 1987-08 #### [facility] ([id number]) [address] [place] [address] Glucose [Mass/Vol] 81 mg/dL Normal 65-99 [facility] Comment on above: Performed By: #### C VIRGILIO CMP, , 2776-04, 1987-08 #### [facility] ([id number]) [address] [place] [address] Potassium [Moles/Vol] 4.1 mmol/L Normal 3.5-5.0 [facility] Comment on above: Performed By: #### C VIRGILIO, CMP, , 2776-04, 1987-08 #### [facility] ([id number]) [address] [place] [address] Protein [Mass/Vol] 4.9 g/dL Low 6.0-8.0 [facility] Comment on above: Performed By: #### C BCA, CMP, , 2776-04, 1987-08 #### [facility] ([id number]) [address] [place] [address] Sodium [Moles/Vol] 140 mmol/L Normal 134-146 [facility] Comment on above: Performed By: #### C BCA, CMP, , 2776-04, 1987-08 #### [facility] ([id number]) [address] [place] [address] Urea nitrogen [Mass/Vol] 58 mg/dL High 5-23 [facility] Comment on above: Performed By: #### C VIRGILIO, CMP, , 2776-04, 1987-08 #### [facility] ([id number]) [address] [place] [address] Calcium.ionized (Bld) [Mass/ Vol]on 10-25-2023 IONIZED CALCIUM 4.8 mg/dL Normal 4.5-5.3 [facility] Comment on above: Performed By: #### C VIRGILIO, CMP, , 2776-04, 1987-08 #### [facility] ([id number]) [address] [place] [address] MAGNESIUMon 10-25-2023 Magnesium [Mass/Vol] 2.1 mg/dL Normal 1.8-2.6 [facility] Comment on above: Performed By: #### C VIRGILIO, CMP, , 2776-04, 1987-08 #### [facility] ([id number]) [address] [place] [address] PHOSPHORUSon 10-25-2023 Phosphate [Mass/Vol] 3.5 mg/dL Normal 2.4-4.9 [facility] Comment on above: Performed By: #### C BCA, CMP, , 2776-04, 1987-08 #### [facility] ([id number]) [address], [address] [place] [address] CBC AND AUTO DIFFon 10-24-19 24 ABSOLUTE BASOPHIL 0.0 X10E9/L Normal 0.0-0.2 [facility] Comment on above: Performed By: #### Shahla BCA, CMP, , 2776-04, 1987-08 #### [facility] ([id number]) [address] [place] [address] ABSOLUTE NEUTROPHIL 7.2 X10E9/L High 1.5-6.6 [facility] Comment on above: Performed By: #### C BCA, CMP, , 2776-04, 1987-08 #### [facility] ([id number]) [address] [place] [address] Basophils/100 WBC (Bld) 0.1 % Normal [facility] Comment on above: Performed By: #### C BCA, CMP, , 2776-04, 1987-08 #### [facility] ([id number]) [address] [place] [address] Eosinophils (Bld) [#/Vol] 0.0 10*3/uL Normal 0.0-0.4 [facility] Comment on above: Performed By: #### C BCA, CMP, , 2776-04, 1987-08 #### [facility] ([id number]) [address] [place] [address] Eosinophils/100 WBC (Bld) 0.2 % Normal [facility] Comment on above: Performed By: #### C BCA, CMP, , 2776-04, 1987-08 #### [facility] ([id number]) [address] [place] [address] Erythrocyte distribution width (RBC) [Ratio] 14.7 % Normal 11.5-15.0 [facility] Comment on above: Performed By: #### C BCA, CMP, , 2776-04, 1987-08 #### [facility] ([id number]) [address] [place] [address] Hematocrit (Bld) [Volume fraction] 31.4 % Low 35-47 [facility] Comment on above: Performed By: #### C BCA, CMP, , 2776-04, 1987-08 #### [facility] ([id number]) [address] [place] [address] Hemoglobin (Bld) [Mass/Vol] 10.5 g/dL Low 11.7-15.5 [facility] Comment on above: Performed By: #### Shahla BCA, CMP, , 2776-04, 1987-08 #### [facility] ([id number]) [address] [place] [address] Lymphocytes (Bld) [#/Vol] 3.1 10*3/uL Normal 1.0-3.5 [facility] Comment on above: Performed By: #### Shahla BCA, CMP, , 2776-04, 1987-08 #### [facility] ([id number]) [address] [place] [address] Lymphocytes/100 WBC (Bld) 27.5 % Normal [facility] Comment on above: Performed By: #### Shahla POOLE, CMP, , 2776-04, 1987-08 #### [facility] ([id number]) [address] [place] [address] MCH (RBC) [Entitic mass] 28.1 pg Normal 27-34 [facility] Comment on above: Performed By: #### Shahla BCA, CMP, , 2776-04, 1987-08 #### [facility] ([id number]) [address] [place] [address] MCHC (RBC) [Mass/Vol] 33.3 g/dL Normal 32-36 [facility] Comment on above: Performed By: #### Shahla BCA, CMP, , 2776-04, 1987-08 #### [facility] ([id number]) [address] [place] [address] MCV (RBC) [Entitic vol] 84 fL Normal 80-100 P [facility] Comment on above: Performed By: #### C BCA, CMP, , 2776-04, 1987-08 #### [facility] ([id number]) [address] [place] [address] Monocytes (Bld) [#/Vol] 0.8 10*3/uL Normal 0-0.9 [facility] Comment on above: Performed By: #### C BCA, CMP, , 2776-04, 1987-08 #### [facility] ([id number]) [address] [place] [address] Monocytes/100 WBC (Bld) 7.6 % Normal [facility] Comment on above: Performed By: #### Shahla BCA, CMP, , 2776-04, 1987-08 #### [facility] ([id number]) [address] [place] [address] Neutrophils/100 WBC (Bld) 64.6 % Normal [facility] Comment on above: Performed By: #### Shahla BCA, CMP, , 2776-04, 1987-08 #### [facility] ([id number]) [address] [place] [address] Platelet mean volume (Bld) [Entitic vol] 9.6 fL Normal 7-12 [facility] Comment on above: Performed By: #### Shahla BCA, CMP, , 2776-04, 1987-08 #### [facility] ([id number]) [address] [place] [address] Platelets (Bld) [#/Vol] 304 10*3/uL Normal 150-450 [facility] Comment on above: Performed By: #### Shahla BCA, CMP, , 2776-04, 1987-08 #### [facility] ([id number]) [address] [place] [address] RBC COUNT 3.73 X10E12/L Low 3.80-5.20 [facility] Comment on above: Performed By: #### C BCA, CMP, , 2776-04, 1987-08 #### [facility] ([id number]) [address] [place] [address] WBC (Bld) [#/Vol] 11.2 10*3/uL High 4.0-11.0 [facility] Comment on above: Performed By: #### C BCA, CMP, , 2776-04, 1987-08 #### [facility] ([id number]) [address], [address] [place] [address] COMPREHENSIVE METABOLIC PANE Phu 10-24-2023 Albumin [Mass/Vol] 3.2 g/dL Normal 3.2-5.3 [facility] Comment on above: Performed By: #### C BCA, CMP, , 2776-04, 1987-08 #### [facility] ([id number]) [address] [place] [address] ALP [Catalytic activity/Vol] 37 U/L Low 39-130 [facility] Comment on above: Performed By: #### C BCA, CMP, , 2776-04, 1987-08 #### [facility] ([id number]) [address] [place] [address] ALT [Catalytic activity/Vol] 8 U/L Normal 0-31 [facility] Comment on above: Performed By: #### C BCA, CMP, , 2776-04, 1987-08 #### [facility] ([id number]) [address], [address] [place] [address] Anion gap [Moles/Vol] 11 mmol/L Normal 5-15 [facility] Comment on above: Performed By: #### C BCA, CMP, , 2776-04, 1987-08 #### [facility] ([id number]) [address] [place] [address] AST [Catalytic activity/Vol] 9 U/L Normal 0-41 [facility] Comment on above: Performed By: #### C BCA, CMP, , 2776-04, 1987-08 #### [facility] ([id number]) [address] [place] [address] Bilirubin [Mass/Vol] 0.3 mg/dL Normal 0.3-1.2 [facility] Comment on above: Performed By: #### C BCA, CMP, , 2776-04, 1987-08 #### [facility] ([id number]) [address] [place] [address] Calcium [Mass/Vol] 8.7 mg/dL Normal 8.5-10.5 [facility] Comment on above: Performed By: #### C BCA, CMP, , 2776-04, 1987-08 #### [facility] ([id number]) [address] [place] [address] Chloride [Moles/Vol] 103 mmol/L Normal 98-109 [facility] Comment on above: Performed By: #### C BCA, CMP, , 2776-04, 1987-08 #### [facility] ([id number]) [address] [place] [address] CO2 [Moles/Vol] 26 mmol/L Normal 22-32 [facility] Comment on above: Performed By: #### C BCA, CMP, , 2776-04, 1987-08 #### [facility] ([id number]) [address] [address] Creatinine [Mass/Vol] 2.33 mg/dL High 0.40-1.00 [facility] Comment on above: Result Comment: METH OD TRACEABLE TO IDMS STANDARD Performed By: #### C EDEL POOLE, , 2776-04, 1987-08 #### [facility] ([id number]) [address] [address] GFR/1.73 sq M.predicted among non-blacks MDRD (S/P/Bld) [Vol rate/Area] 24 mL/min/{1.73_m2} Low >59 [facility] Comment on above: Result Comment: Reported eGFR is based on the CKD-EPI 2020 equation that does not use a race coefficient. Performed By: #### C EDEL POOLE, , 2776-04, 1987-08 #### [facility] ([id number]) [address] [address] Glucose [Mass/Vol] 80 mg/dL Normal 65-99 [facility] Comment on above: Performed By: #### C EDEL POOLE, , 2776-04, 1987-08 #### [facility] ([id number]) [address] [address] Potassium [Moles/Vol] 3.9 mmol/L Normal 3.5-5.0 [facility] Comment on above: Performed By: #### C VIRGILIO CMP, , 2776-04, 1987-08 #### [facility] ([id number]) [address] [address] Protein [Mass/Vol] 5.1 g/dL Low 6.0-8.0 [facility] Comment on above: Performed By: #### C VIRGILIO CMP, , 2776-04, 1987-08 #### [facility] ([id number]) [address] [place] [address] Sodium [Moles/Vol] 140 mmol/L Normal 134-146 [facility] Comment on above: Performed By: #### C VIRGILIO CMP, , 2776-04, 1987-08 #### [facility] ([id number]) [address] [place] [address] Urea nitrogen [Mass/Vol] 67 mg/dL High 5-23 [facility] Comment on above: Performed By: #### C VIRGILIO, CMP, , 2776-04, 1987-08 #### [facility] ([id number]) [address] [place] [address] Calcium.ionized (Bld) [Mass/ Vol]on 10-24-2023 IONIZED CALCIUM 4.7 mg/dL Normal 4.5-5.3 [facility] Comment on above: Performed By: #### Shahla POOLE CMP, , 2776-04, 1987-08 #### [facility] ([id number]) [address] [place] [address] HBV core Ab IA Qlon 10-24-19 ANTI HBc Negative Normal NEG [facility] Comment on above: Performed By: #### Shahla POOLE, CMP, , 2776-04, 1987-08 #### [facility] ([id number]) [address] [place] [address] HBV surface Ag IA Qlon 10-23 HEPATITIS B SURF AG Negative Normal NEG [facility] Comment on above: Performed By: #### C VIRGILIO, CMP, , 2776-04, 1987-08 #### [facility] ([id number]) [address] [place] [address] MAGNESIUMon 10-24-2023 Magnesium [Mass/Vol] 2.2 mg/dL Normal 1.8-2.6 [facility] Comment on above: Performed By: #### C VIRGILIO, CMP, , 2776-04, 1987-08 #### [facility] ([id number]) [address] [place] [address] PHOSPHORUSon 10-24-2023 Phosphate [Mass/Vol] 3.4 mg/dL Normal 2.4-4.9 [facility] Comment on above: Performed By: #### C BCA, CMP, , 2776-04, 1987-08 #### [facility] ([id number]) [address] [place] [address] CBC AND AUTO DIFFon 10-23-19 24 Band form neutrophils/100 WBC (Bld) 2.0 % Normal [facility] Comment on above: Performed By: #### Shahla POOLE, CMP, , 2776-04, 1987-08 #### [facility] ([id number]) [address] [place] [address] Erythrocyte distribution width (RBC) [Ratio] 14.6 % Normal 11.5-15.0 [facility] Comment on above: Performed By: #### Shahla POOLE, CMP, , 2776-04, 1987-08 #### [facility] ([id number]) [address], [facility] [address] [place] [address] Hematocrit (Bld) [Volume fraction] 31.6 % Low 35-47 [facility] Comment on above: Performed By: #### Shahla BCA, CMP, , 2776-04, 1987-08 #### [facility] ([id number]) [address], [facility] [address] [place] [address] Hemoglobin (Bld) [Mass/Vol] 10.5 g/dL Low 11.7-15.5 [facility] Comment on above: Performed By: #### Shahla BCA, CMP, , 2776-04, 1987-08 #### [facility] ([id number]) [address] [place] [address] Lymphocytes (Bld) [#/Vol] 2.0 10*3/uL Normal 1.0-3.5 [facility] Comment on above: Performed By: #### Shahla POOLE CMP, , 2776-04, 1987-08 #### [facility] ([id number]) [address] [place] [address] Lymphocytes/100 WBC (Bld) 21.0 % Normal [facility] Comment on above: Performed By: #### Shahla POOLE, CMP, , 2776-04, 1987-08 #### [facility] ([id number]) [address] [place] [address] MCH (RBC) [Entitic mass] 28.2 pg Normal 27-34 [facility] Comment on above: Performed By: #### Shahla POOLE, CMP, , 2776-04, 1987-08 #### [facility] ([id number]) [address] [place] [address] MCHC (RBC) [Mass/Vol] 33.3 g/dL Normal 32-36 [facility] Comment on above: Performed By: #### Shahla POOLE CMP, , 2776-04, 1987-08 #### [facility] ([id number]) [address] [place] [address] MCV (RBC) [Entitic vol] 85 fL Normal 80-100 [facility] Comment on above: Performed By: #### Shahla BCA, CMP, , 2776-04, 1987-08 #### [facility] ([id number]) [address] [place] [address] Monocytes (Bld) [#/Vol] 1.8 10*3/uL High 0-0.9 [facility] Comment on above: Performed By: #### C BCA, CMP, , 2776-04, 1987-08 #### [facility] ([id number]) [address] [place] [address] Monocytes/100 WBC (Bld) 19.0 % Normal [facility] Comment on above: Performed By: #### Shahla BCA, CMP, , 2776-04, 1987-08 #### [facility] ([id number]) [address], [address] [place] [address] Neutrophils (Bld) [#/Vol] 5.8 10*3/uL Normal 1.5-6.6 [facility] Comment on above: Performed By: #### Shahla BCA, CMP, , 2776-04, 1987-08 #### [facility] ([id number]) [address], [address] [place] [address] Platelet mean volume (Bld) [Entitic vol] 9.3 fL Normal 7-12 [facility] Comment on above: Performed By: #### Shahla BCA, CMP, , 2776-04, 1987-08 #### [facility] ([id number]) [address], [address] [place] [address] Platelets (Bld) [#/Vol] 297 10*3/uL Normal 150-450 [facility] Comment on above: Performed By: #### Shahla BCA, CMP, , 2776-04, 1987-08 #### [facility] ([id number]) [address], [address] [place] [address] RBC COUNT 3.73 X10E12/L Low 3.80-5.20 [facility] Comment on above: Performed By: #### Shahla BCA, CMP, , 2776-04, 1987-08 #### [facility] ([id number]) [address], [address] [place] [address] RBC morphology finding Nom (Bld) NORMAL Normal [facility] Comment on above: Performed By: #### C BCA, CMP, , 2776-04, 1987-08 #### [facility] ([id number]) [address], [address] [place] [address] SEG NEUTROPHIL 58.0 % Normal [facility] Comment on above: Performed By: #### C BCA, CMP, , 2776-04, 1987-08 #### [facility] ([id number]) [address], [address] [place] [address] WBC (Bld) [#/Vol] 9.6 10*3/uL Normal 4.0-11.0 [facility] Comment on above: Performed By: #### C BCA, CMP, , 2776-04, 1987-08 #### [facility] ([id number]) [address], [address] [place] [address] COMPREHENSIVE METABOLIC PANE [facility] 10-23-2023 Albumin [Mass/Vol] 3.2 g/dL Normal 3.2-5.3 [facility] Comment on above: Performed By: #### C BCA, CMP, , 2776-04, 1987-08 #### [facility] ([id number]) [address], [address] [place] [address] ALP [Catalytic activity/Vol] 38 U/L Low 39-130 [facility] Comment on above: Performed By: #### C BCA, CMP, , 2776-04, 1987-08 #### [facility] ([id number]) [address], [address] [place] [address] ALT [Catalytic activity/Vol] 10 U/L Normal 0-31 [facility] Comment on above: Performed By: #### C BCA, CMP, , 2776-04, 1987-08 #### [facility] ([id number]) [address], [address] [place] [address] Anion gap [Moles/Vol] 9 mmol/L Normal 5-15 [facility] Comment on above: Performed By: #### C BCA, CMP, , 2776-04, 1987-08 #### [facility] ([id number]) [address], [address] [place] [address] AST [Catalytic activity/Vol] 10 U/L Normal 0-41 [facility] Comment on above: Performed By: #### C BCA, CMP, , 2776-04, 1987-08 #### [facility] ([id number]) [address], [address] [place] [address] Bilirubin [Mass/Vol] 0.3 mg/dL Normal 0.3-1.2 [facility] Comment on above: Performed By: #### C BCA, CMP, , 2776-04, 1987-08 #### [facility] ([id number]) [address], [address] [place] [address] Calcium [Mass/Vol] 8.7 mg/dL Normal 8.5-10.5 [facility] Comment on above: Performed By: #### C BCA, CMP, , 2776-04, 1987-08 #### [facility] ([id number]) [address], [address] [place] [address] Chloride [Moles/Vol] 102 mmol/L Normal 98-109 [facility] Comment on above: Performed By: #### C BCA, CMP, , 2776-04, 1987-08 #### [facility] ([id number]) [address], [address] [place] [address] CO2 [Moles/Vol] 29 mmol/L Normal 22-32 [facility] Comment on above: Performed By: #### C BCA, CMP, , 2776-04, 1987-08 #### [facility] ([id number]) [address], [address] [place] [address] Creatinine [Mass/Vol] 2.68 mg/dL High 0.40-1.00 [facility] Comment on above: Result Comment: METH OD TRACEABLE TO IDMS STANDARD Performed By: #### C EDEL POOLE, , 2776-04, 1987-08 #### [facility] ([id number]) [address], [address] [place] [address] GFR/1.73 sq M.predicted among non-blacks MDRD (S/P/Bld) [Vol rate/Area] 20 mL/min/{1.73_m2} Low >59 [facility] Comment on above: Result Comment: Reported eGFR is based on the CKD-EPI 2020 equation that does not use a race coefficient. Performed By: #### C EDEL POOLE, , 2776-04, 1987-08 #### [facility] ([id number]) [address], [address] [place] [address] Glucose [Mass/Vol] 86 mg/dL Normal 65-99 [facility] Comment on above: Performed By: #### C EDEL POOLE, , 2776-04, 1987-08 #### [facility] ([id number]) [address], [address] [place] [address] Potassium [Moles/Vol] 3.7 mmol/L Normal 3.5-5.0 [facility] Comment on above: Performed By: #### C VIRGILIO CMP, , 2776-04, 1987-08 #### [facility] ([id number]) [address], [address] [place] [address] Protein [Mass/Vol] 5.2 g/dL Low 6.0-8.0 [facility] Comment on above: Performed By: #### C BCA, CMP, , 2776-04, 1987-08 #### [facility] ([id number]) [address], [address] [place] [address] Sodium [Moles/Vol] 140 mmol/L Normal 134-146 [facility] Comment on above: Performed By: #### C BCA, CMP, , 2776-04, 1987-08 #### [facility] ([id number]) [address], [address] [place] [address] Urea nitrogen [Mass/Vol] 72 mg/dL High 5-23 [facility] Comment on above: Performed By: #### C BCA, CMP, , 2776-04, 1987-08 #### [facility] ([id number]) [address], [address] [place] [address] Calcium.ionized (Bld) [Mass/ Vol]on 10-23-2023 IONIZED CALCIUM 4.8 mg/dL Normal 4.5-5.3 [facility] Comment on above: Performed By: #### C VIRGILIO, CMP, , 2776-04, 1987-08 #### [facility] ([id number]) [address], [address] [place] [address] MAGNESIUMon 10-23-2023 Magnesium [Mass/Vol] 2.4 mg/dL Normal 1.8-2.6 [facility] Comment on above: Performed By: #### C BCA, CMP, , 2776-04, 1987-08 #### [facility] ([id number]) [address], [address] [place] [address] PHOSPHORUSon 10-23-2023 Phosphate [Mass/Vol] 4.0 mg/dL Normal 2.4-4.9 [facility] Comment on above: Performed By: #### C BCA, CMP, , 2776-04, 1987-08 #### [facility] ([id number]) [address], [address] [place] [address] CBC AND AUTO DIFFon 10-22-19 Erythrocyte distribution width (RBC) [Ratio] 15.0 % Normal 11.5-15.0 [facility] Comment on above: Performed By: #### Shahla POOLE CMP, , 2776-04, 1987-08 #### [facility] ([id number]) [address], [facility] [address] [place] [address] Hematocrit (Bld) [Volume fraction] 32.1 % Low 35-47 [facility] Comment on above: Performed By: #### Shahla POOLE [facility], , 2776-04, 1987-08 #### [facility] ([id number]) [address], [facility] [address] [place] [address] Hemoglobin (Bld) [Mass/Vol] 11.0 g/dL Low 11.7-15.5 [facility] Comment on above: Performed By: #### C VIRGILIO [facility], , 2776-04, 1987-08 #### [facility] ([id number]) [address] [place] [address] Lymphocytes (Bld) [#/Vol] 1.2 10*3/uL Normal 1.0-3.5 [facility] Comment on above: Performed By: #### Shahla POOLE CMP, , 2776-04, 1987-08 #### [facility] ([id number]) [address] [place] [address] Lymphocytes/100 WBC (Bld) 14.0 % Normal [facility] Comment on above: Performed By: #### Shahla BCA, CMP, , 2776-04, 1987-08 #### [facility] ([id number]) [address], [address] [place] [address] MCH (RBC) [Entitic mass] 28.8 pg Normal 27-34 [facility] Comment on above: Performed By: #### C BCA, CMP, , 2776-04, 1987-08 #### [facility] ([id number]) [address], [address] [place] [address] MCHC (RBC) [Mass/Vol] 34.3 g/dL Normal 32-36 [facility] Comment on above: Performed By: #### C BCA, CMP, , 2776-04, 1987-08 #### [facility] ([id number]) [address], [address] [place] [address] MCV (RBC) [Entitic vol] 84 fL Normal 80-100 [facility] Comment on above: Performed By: #### Shahla BCA, CMP, , 2776-04, 1987-08 #### [facility] ([id number]) [address], [address] [place] [address] Metamyelocytes/100 WBC (Bld) 1.0 % Normal [facility] Comment on above: Performed By: #### C BCA, CMP, , 2776-04, 1987-08 #### [facility] ([id number]) [address], [address] [place] [address] Monocytes (Bld) [#/Vol] 0.6 10*3/uL Normal 0-0.9 [facility] Comment on above: Performed By: #### C BCA, CMP, , 2776-04, 1987-08 #### [facility] ([id number]) [address], [address] [place] [address] Monocytes/100 WBC (Bld) 7.0 % Normal [facility] Comment on above: Performed By: #### C BCA, CMP, , 2776-04, 1987-08 #### [facility] ([id number]) [address], [address] [place] [address] MYELOCYTE 3.0 % Normal [facility] Comment on above: Performed By: #### C BCA, CMP, , 2776-04, 1987-08 #### [facility] ([id number]) [address], [address] [place] [address] Neutrophils (Bld) [#/Vol] 6.7 10*3/uL High 1.5-6.6 [facility] Comment on above: Performed By: #### C BCA, CMP, , 2776-04, 1987-08 #### [facility] ([id number]) [address], [address] [place] [address] Platelet mean volume (Bld) [Entitic vol] 9.4 fL Normal 7-12 [facility] Comment on above: Performed By: #### Shahla BCA, CMP, , 2776-04, 1987-08 #### [facility] ([id number]) [address], [address] [place] [address] Platelets (Bld) [#/Vol] 394 10*3/uL Normal 150-450 [facility] Comment on above: Performed By: #### Shahla BCA, CMP, , 2776-04, 1987-08 #### [facility] ([id number]) [address], [address] [place] [address] RBC COUNT 3.83 X10E12/L Normal 3.80-5.20 [facility] Comment on above: Performed By: #### C BCA, CMP, , 2776-04, 1987-08 #### [facility] ([id number]) [address], [address] [place] [address] RBC morphology finding Nom (Bld) NORMAL Normal [facility] Comment on above: Performed By: #### C BCA, CMP, , 2776-04, 1987-08 #### [facility] ([id number]) [address], [address] [place] [address] SEG NEUTROPHIL 75.0 % Normal [facility] Comment on above: Performed By: #### C BCA, CMP, , 2776-04, 1987-08 #### [facility] ([id number]) [address], [address] [place] [address] WBC (Bld) [#/Vol] 8.9 10*3/uL Normal 4.0-11.0 [facility] Comment on above: Performed By: #### C BCA, CMP, , 2776-04, 1987-08 #### [facility] ([id number]) [address], [address] [place] [address] COMPREHENSIVE METABOLIC PANE Phu 10-22-2023 Albumin [Mass/Vol] 3.4 g/dL Normal 3.2-5.3 [facility] Comment on above: Performed By: #### C BCA, CMP, , 2776-04, 1987-08 #### [facility] ([id number]) [address], [address] [place] [address] ALP [Catalytic activity/Vol] 43 U/L Normal 39-130 [facility] Comment on above: Performed By: #### C BCA, CMP, , 2776-04, 1987-08 #### [facility] ([id number]) [address], [address] [place] [address] ALT [Catalytic activity/Vol] 9 U/L Normal 0-31 [facility] Comment on above: Performed By: #### C BCA, CMP, , 2776-04, 1987-08 #### [facility] ([id number]) [address], [address] [place] [address] Anion gap [Moles/Vol] 14 mmol/L Normal 5-15 [facility] Comment on above: Performed By: #### C BCA, CMP, , 2776-04, 1987-08 #### [facility] ([id number]) [address], [address] [place] [address] AST [Catalytic activity/Vol] 12 U/L Normal 0-41 [facility] Comment on above: Performed By: #### C BCA, CMP, , 2776-04, 1987-08 #### [facility] ([id number]) [address], [address] [place] [address] Bilirubin [Mass/Vol] 0.3 mg/dL Normal 0.3-1.2 [facility] Comment on above: Performed By: #### C BCA, CMP, , 2776-04, 1987-08 #### [facility] ([id number]) [address], [address] [place] [address] Calcium [Mass/Vol] 8.9 mg/dL Normal 8.5-10.5 [facility] Comment on above: Performed By: #### C BCA, CMP, , 2776-04, 1987-08 #### [facility] ([id number]) [address], [address] [place] [address] Chloride [Moles/Vol] 99 mmol/L Normal 98-109 [facility] Comment on above: Performed By: #### C BCA, CMP, , 2776-04, 1987-08 #### [facility] ([id number]) [address], [address] [place] [address] CO2 [Moles/Vol] 25 mmol/L Normal 22-32 [facility] Comment on above: Performed By: #### C BCA, CMP, , 2776-04, 1987-08 #### [facility] ([id number]) [address], [address] [place] [address] Creatinine [Mass/Vol] 3.16 mg/dL High 0.40-1.00 [facility] Comment on above: Result Comment: METH OD TRACEABLE TO IDMS STANDARD Performed By: #### C EDEL POOLE, , 2776-04, 1987-08 #### [facility] ([id number]) [address], [facility] [address] [place] [address] GFR/1.73 sq M.predicted among non-blacks MDRD (S/P/Bld) [Vol rate/Area] 16 mL/min/{1.73_m2} Low >59 [facility] Comment on above: Result Comment: Reported eGFR is based on the CKD-EPI 2020 equation that does not use a race coefficient. Performed By: #### C EDEL POOLE, , 2776-04, 1987-08 #### [facility] ([id number]) [address] [address] Glucose [Mass/Vol] 109 mg/dL High 65-99 [facility] Comment on above: Performed By: #### C EDEL POOLE, , 2776-04, 1987-08 #### [facility] ([id number]) [address] [address] Potassium [Moles/Vol] 4.0 mmol/L Normal 3.5-5.0 [facility] Comment on above: Performed By: #### C EDEL POOLE, , 2776-04, 1987-08 #### [facility] ([id number]) [address] [place] [address] Protein [Mass/Vol] 5.7 g/dL Low 6.0-8.0 [facility] Comment on above: Performed By: #### C VIRGILIO CMP, , 2776-04, 1987-08 #### [facility] ([id number]) [address], [address] [place] [address] Sodium [Moles/Vol] 138 mmol/L Normal 134-146 [facility] Comment on above: Performed By: #### C VIRGILIO, CMP, , 2776-04, 1987-08 #### [facility] ([id number]) [address], [address] [place] [address] Urea nitrogen [Mass/Vol] 79 mg/dL High 5-23 [facility] Comment on above: Performed By: #### C VIRGILIO, CMP, , 2776-04, 1987-08 #### [facility] ([id number]) [address], [facility] [address] [place] [address] Calcium.ionized (Bld) [Mass/ Vol]on 10-22-2023 IONIZED CALCIUM 4.5 mg/dL Normal 4.5-5.3 [facility] Comment on above: Performed By: #### Shahla POOLE, CMP, , 2776-04, 1987-08 #### [facility] ([id number]) [address], [facility] [address] [place] [address] MAGNESIUMon 10-22-2023 Magnesium [Mass/Vol] 2.5 mg/dL Normal 1.8-2.6 [facility] Comment on above: Performed By: #### Shahla POOLE, CMP, , 2776-04, 1987-08 #### [facility] ([id number]) [address], [facility] [address] [place] [address] PHOSPHORUSon 10-22-2023 Phosphate [Mass/Vol] 4.7 mg/dL Normal 2.4-4.9 [facility] Comment on above: Performed By: #### Shahla POOLE, CMP, , 2776-04, 1987-08 #### [facility] ([id number]) [address], [facility] [address] [place] [address] Basement membrane IgG Qn (S) on 10-21-2023 Glomerular Base Memb IgG <0.2 Normal <1. 0 (Negative) [facility] Comment on above: Result Comment: NOTE Test Performed by: [facility] [address] [place] [address] Claims Representative: Ledy Son Ph.D.; CLIA# [id number] Performed By: #### C BCA, CMP, , 2776-04, 1987-08 #### [facility] ([id number]) [address], [address] [place] [address] CBC AND AUTO DIFFon 10-21-19 24 ABSOLUTE BASOPHIL 0.0 X10E9/L Normal 0.0-0.2 [facility] Comment on above: Performed By: #### C BCA, CMP, , 2776-04, 1987-08 #### [facility] ([id number]) [address], [address] [place] [address] ABSOLUTE NEUTROPHIL 8.8 X10E9/L High 1.5-6.6 [facility] Comment on above: Performed By: #### C BCA, CMP, , 2776-04, 1987-08 #### [facility] ([id number]) [address], [address] [place] [address] Basophils/100 WBC (Bld) 0.1 % Normal [facility] Comment on above: Performed By: #### Shahla BCA, CMP, , 2776-04, 1987-08 #### [facility] ([id number]) [address], [address] [place] [address] Eosinophils (Bld) [#/Vol] 0.0 10*3/uL Normal 0.0-0.4 [facility] Comment on above: Performed By: #### C BCA, CMP, , 2776-04, 1987-08 #### [facility] ([id number]) [address], [address] [place] [address] Eosinophils/100 WBC (Bld) 0.0 % Normal [facility] Comment on above: Performed By: #### C VIRGILIO CMP, , 2776-04, 1987-08 #### [facility] ([id number]) [address], [address] [place] [address] Erythrocyte distribution width (RBC) [Ratio] 15.1 % High 11.5-15.0 [facility] Comment on above: Performed By: #### C VIRGILIO, CMP, , 2776-04, 1987-08 #### [facility] ([id number]) [address], [facility] [address] [place] [address] Hematocrit (Bld) [Volume fraction] 30.9 % Low 35-47 [facility] Comment on above: Performed By: #### Shahla POOLE CMP, , 2776-04, 1987-08 #### [facility] ([id number]) [address], [address] [place] [address] Hemoglobin (Bld) [Mass/Vol] 10.7 g/dL Low 11.7-15.5 [facility] Comment on above: Performed By: #### Shahla POOLE, CMP, , 2776-04, 1987-08 #### [facility] ([id number]) [address], [address] [place] [address] Lymphocytes (Bld) [#/Vol] 1.1 10*3/uL Normal 1.0-3.5 [facility] Comment on above: Performed By: #### C BCA, CMP, , 2776-04, 1987-08 #### [facility] ([id number]) [address], [address] [place] [address] Lymphocytes/100 WBC (Bld) 10.9 % Normal [facility] Comment on above: Performed By: #### Shahla BCA, CMP, , 2776-04, 1987-08 #### [facility] ([id number]) [address], [address] [place] [address] MCH (RBC) [Entitic mass] 29.1 pg Normal 27-34 [facility] Comment on above: Performed By: #### C BCA, CMP, , 2776-04, 1987-08 #### [facility] ([id number]) [address], [address] [place] [address] MCHC (RBC) [Mass/Vol] 34.7 g/dL Normal 32-36 [facility] Comment on above: Performed By: #### C VIRGILIO, CMP, , 2776-04, 1987-08 #### [facility] ([id number]) [address] [place] [address] MCV (RBC) [Entitic vol] 84 fL Normal 80-100 [facility] Comment on above: Performed By: #### C BCA, CMP, , 2776-04, 1987-08 #### [facility] ([id number]) [address], [address] [place] [address] Monocytes (Bld) [#/Vol] 0.2 10*3/uL Normal 0-0.9 [facility] Comment on above: Performed By: #### C VIRGILIO, CMP, , 2776-04, 1987-08 #### [facility] ([id number]) [address] [place] [address] Monocytes/100 WBC (Bld) 2.2 % Normal [facility] Comment on above: Performed By: #### C BCA, CMP, , 2776-04, 1987-08 #### [facility] ([id number]) [address] [place] [address] Neutrophils/100 WBC (Bld) 86.8 % Normal [facility] Comment on above: Performed By: #### C BCA, CMP, , 2776-04, 1987-08 #### [facility] ([id number]) [address], [address] [place] [address] Platelet mean volume (Bld) [Entitic vol] 9.5 fL Normal 7-12 [facility] Comment on above: Performed By: #### C BCA, CMP, , 2776-04, 1987-08 #### [facility] ([id number]) [address], [address] [place] [address] Platelets (Bld) [#/Vol] 297 10*3/uL Normal 150-450 [facility] Comment on above: Performed By: #### C BCA, CMP, , 2776-04, 1987-08 #### [facility] ([id number]) [address], [address] [place] [address] RBC COUNT 3.69 X10E12/L Low 3.80-5.20 [facility] Comment on above: Performed By: #### C BCA, CMP, , 2776-04, 1987-08 #### [facility] ([id number]) [address], [address] [place] [address] WBC (Bld) [#/Vol] 10.2 10*3/uL Normal 4.0-11.0 [facility] Comment on above: Performed By: #### C BCA, CMP, , 2776-04, 1987-08 #### [facility] ([id number]) [address], [address] [place] [address] COMPREHENSIVE METABOLIC PANE Phu 10-21-2023 Albumin [Mass/Vol] 3.6 g/dL Normal 3.2-5.3 [facility] Comment on above: Performed By: #### C BCA, CMP, , 2776-04, 1987-08 #### [facility] ([id number]) [address], [address] [place] [address] ALP [Catalytic activity/Vol] 46 U/L Normal 39-130 [facility] Comment on above: Performed By: #### C BCA, CMP, , 2776-04, 1987-08 #### [facility] ([id number]) [address], [address] [place] [address] ALT [Catalytic activity/Vol] 15 U/L Normal 0-31 [facility] Comment on above: Performed By: #### C BCA, CMP, , 2776-04, 1987-08 #### [facility] ([id number]) [address] [place] [address] Anion gap [Moles/Vol] 12 mmol/L Normal 5-15 [facility] Comment on above: Performed By: #### C BCA, CMP, , 2776-04, 1987-08 #### [facility] ([id number]) [address] [place] [address] AST [Catalytic activity/Vol] 18 U/L Normal 0-41 [facility] Comment on above: Performed By: #### C BCA, CMP, , 2776-04, 1987-08 #### [facility] ([id number]) [address], [address] [place] [address] Bilirubin [Mass/Vol] 0.3 mg/dL Normal 0.3-1.2 [facility] Comment on above: Performed By: #### C BCA, CMP, , 2776-04, 1987-08 #### [facility] ([id number]) [address], [address] [place] [address] Calcium [Mass/Vol] 8.8 mg/dL Normal 8.5-10.5 [facility] Comment on above: Performed By: #### C BCA, CMP, , 2776-04, 1987-08 #### [facility] ([id number]) [address], [address] [place] [address] Chloride [Moles/Vol] 96 mmol/L Low 98-109 [facility] Comment on above: Performed By: #### C VIRGILIO CMP, , 2776-04, 1987-08 #### [facility] ([id number]) [address], [address] [place] [address] CO2 [Moles/Vol] 28 mmol/L Normal 22-32 [facility] Comment on above: Performed By: #### C VIRGILIO CMP, , 2776-04, 1987-08 #### [facility] ([id number]) [address], [address] [place] [address] Creatinine [Mass/Vol] 3.71 mg/dL High 0.40-1.00 [facility] Comment on above: Result Comment: METH OD TRACEABLE TO IDMS STANDARD Performed By: #### C EDEL POOLE, , 2776-04, 1987-08 #### [facility] ([id number]) [address], [address] [place] [address] GFR/1.73 sq M.predicted among non-blacks MDRD (S/P/Bld) [Vol rate/Area] 13 mL/min/{1.73_m2} Low >59 [facility] Comment on above: Result Comment: Reported eGFR is based on the CKD-EPI 2020 equation that does not use a race coefficient. Performed By: #### C BCA, CMP, , 2776-04, 1987-08 #### [facility] ([id number]) [address], [address] [place] [address] Glucose [Mass/Vol] 131 mg/dL High 65-99 [facility] Comment on above: Performed By: #### C BCA, CMP, , 2776-04, 1987-08 #### [facility] ([id number]) [address], [address] [place] [address] Potassium [Moles/Vol] 4.6 mmol/L Normal 3.5-5.0 [facility] Comment on above: Performed By: #### C VIRGILIO, CMP, , 2776-04, 1987-08 #### [facility] ([id number]) [address], [address] [place] [address] Protein [Mass/Vol] 5.9 g/dL Low 6.0-8.0 [facility] Comment on above: Performed By: #### C VIRGILIO, CMP, , 2776-04, 1987-08 #### [facility] ([id number]) [address] [place] [address] Sodium [Moles/Vol] 136 mmol/L Normal 134-146 [facility] Comment on above: Performed By: #### C VIRGILIO, CMP, , 2776-04, 1987-08 #### [facility] ([id number]) [address], [address] [place] [address] Urea nitrogen [Mass/Vol] 80 mg/dL High 5-23 [facility] Comment on above: Performed By: #### C BCA, CMP, , 2776-04, 1987-08 #### [facility] ([id number]) [address], [address] [place] [address] Calcium.ionized (Bld) [Mass/ Vol]on 10-21-2023 IONIZED CALCIUM 4.5 mg/dL Normal 4.5-5.3 [facility] Comment on above: Performed By: #### C BCA, CMP, , 2776-04, 1987-08 #### [facility] ([id number]) [address], [address] [place] [address] MAGNESIUMon 10-21-2023 Magnesium [Mass/Vol] 2.4 mg/dL Normal 1.8-2.6 [facility] Comment on above: Performed By: #### C BCA, CMP, , 2776-04, 1987-08 #### [facility] ([id number]) [address], [address] [place] [address] PHOSPHORUSon 10-21-2023 Phosphate [Mass/Vol] 5.5 mg/dL High 2.4-4.9 [facility] Comment on above: Performed By: #### C BCA, CMP, , 2776-04, 1987-08 #### [facility] ([id number]) [address] [place] [address] CBC AND AUTO DIFFon 10-20-19 ABSOLUTE BASOPHIL 0.0 X10E9/L Normal 0.0-0.2 [facility] Comment on above: Performed By: #### C BCA, CMP, , 2776-04, 1987-08 #### [facility] ([id number]) [address], [address] [place] [address] ABSOLUTE NEUTROPHIL 14.6 X10E9/L High 1.5-6.6 [facility] Comment on above: Performed By: #### C BCA, CMP, , 2776-04, 1987-08 #### [facility] ([id number]) [address], [address] [place] [address] Basophils/100 WBC (Bld) 0.1 % Normal P [facility] Comment on above: Performed By: #### C BCA, CMP, , 2776-04, 1987-08 #### [facility] ([id number]) [address], [address] [place] [address] Eosinophils (Bld) [#/Vol] 0.0 10*3/uL Normal 0.0-0.4 [facility] Comment on above: Performed By: #### C VIRGILIO, CMP, , 2776-04, 1987-08 #### [facility] ([id number]) [address] [address] [place] [address] Eosinophils/100 WBC (Bld) 0.0 % Normal [facility] Comment on above: Performed By: #### Shahla BCA, CMP, , 2776-04, 1987-08 #### [facility] ([id number]) [address] [place] [address] Erythrocyte distribution width (RBC) [Ratio] 15.3 % High 11.5-15.0 [facility] Comment on above: Performed By: #### Shahla POOLE, CMP, , 2776-04, 1987-08 #### [facility] ([id number]) [address], [address] [place] [address] Hematocrit (Bld) [Volume fraction] 32.0 % Low 35-47 [facility] Comment on above: Performed By: #### Shahla POOLE, CMP, , 2776-04, 1987-08 #### [facility] ([id number]) [address] [address] [address] [place] [address] Hemoglobin (Bld) [Mass/Vol] 10.5 g/dL Low 11.7-15.5 [facility] Comment on above: Performed By: #### Shahla POOLE, CMP, , 2776-04, 1987-08 #### [facility] ([id number]) [address] [address] [address] [place] [address] Lymphocytes (Bld) [#/Vol] 1.7 10*3/uL Normal 1.0-3.5 [facility] Comment on above: Performed By: #### Shahla BCA, CMP, , 2776-04, 1987-08 #### [facility] ([id number]) [address], [address] [place] [address] Lymphocytes/100 WBC (Bld) 10.3 % Normal [facility] Comment on above: Performed By: #### C VIRGILIO CMP, , 2776-04, 1987-08 #### [facility] ([id number]) [address], [facility] [address] [place] [address] MCH (RBC) [Entitic mass] 27.7 pg Normal 27-34 [facility] Comment on above: Performed By: #### Shahla BCA, CMP, , 2776-04, 1987-08 #### [facility] ([id number]) [address], [facility] [address] [place] [address] MCHC (RBC) [Mass/Vol] 32.9 g/dL Normal 32-36 [facility] Comment on above: Performed By: #### Shahla POOLE CMP, , 2776-04, 1987-08 #### [facility] ([id number]) [address], [facility] [address] [place] [address] MCV (RBC) [Entitic vol] 84 fL Normal 80-100 [facility] Comment on above: Performed By: #### Shahla POOLE, CMP, , 2776-04, 1987-08 #### [facility] ([id number]) [address], [facility] [address] [place] [address] Monocytes (Bld) [#/Vol] 0.4 10*3/uL Normal 0-0.9 [facility] Comment on above: Performed By: #### Shahla BCA, CMP, , 2776-04, 1987-08 #### [facility] ([id number]) [address], [facility] [address] [place] [address] Monocytes/100 WBC (Bld) 2.2 % Normal [facility] Comment on above: Performed By: #### Shahla BCA, CMP, , 2776-04, 1987-08 #### [facility] ([id number]) [address], [address] [place] [address] Neutrophils/100 WBC (Bld) 87.4 % Normal [facility] Comment on above: Performed By: #### C BCA, CMP, , 2776-04, 1987-08 #### [facility] ([id number]) [address], [address] [place] [address] Platelet mean volume (Bld) [Entitic vol] 9.3 fL Normal 7-12 [facility] Comment on above: Performed By: #### C BCA, CMP, , 2776-04, 1987-08 #### [facility] ([id number]) [address], [address] [place] [address] Platelets (Bld) [#/Vol] 350 10*3/uL Normal 150-450 [facility] Comment on above: Performed By: #### C BCA, CMP, , 2776-04, 1987-08 #### [facility] ([id number]) [address], [address] [place] [address] RBC COUNT 3.80 X10E12/L Normal 3.80-5.20 [facility] Comment on above: Performed By: #### C BCA, CMP, , 2776-04, 1987-08 #### [facility] ([id number]) [address], [address] [place] [address] WBC (Bld) [#/Vol] 16.7 10*3/uL High 4.0-11.0 [facility] Comment on above: Performed By: #### C BCA, CMP, , 2776-04, 1987-08 #### [facility] ([id number]) [address], [address] [place] [address] COMPREHENSIVE METABOLIC PANE Phu 10-20-2023 Albumin [Mass/Vol] 3.6 g/dL Normal 3.2-5.3 [facility] Comment on above: Performed By: #### C BCA, CMP, , 2776-04, 1987-08 #### [facility] ([id number]) [address], [address] [place] [address] ALP [Catalytic activity/Vol] 53 U/L Normal 39-130 [facility] Comment on above: Performed By: #### C BCA, CMP, , 2776-04, 1987-08 #### [facility] ([id number]) [address], [address] [place] [address] ALT [Catalytic activity/Vol] 14 U/L Normal 0-31 [facility] Comment on above: Performed By: #### C BCA, CMP, , 2776-04, 1987-08 #### [facility] ([id number]) [address], [address] [place] [address] Anion gap [Moles/Vol] 13 mmol/L Normal 5-15 [facility] Comment on above: Performed By: #### C BCA, CMP, , 2776-04, 1987-08 #### [facility] ([id number]) [address], [address] [place] [address] AST [Catalytic activity/Vol] 27 U/L Normal 0-41 [facility] Comment on above: Performed By: #### C BCA, CMP, , 2776-04, 1987-08 #### [facility] ([id number]) [address], [address] [place] [address] Bilirubin [Mass/Vol] 0.3 mg/dL Normal 0.3-1.2 [facility] Comment on above: Performed By: #### C BCA, CMP, , 2776-04, 1987-08 #### [facility] ([id number]) [address], [address] [place] [address] Calcium [Mass/Vol] 9.1 mg/dL Normal 8.5-10.5 [facility] Comment on above: Performed By: #### C BCA, CMP, , 2776-04, 1987-08 #### [facility] ([id number]) [address], [address] [place] [address] Chloride [Moles/Vol] 94 mmol/L Low 98-109 [facility] Comment on above: Performed By: #### C BCA, CMP, , 2776-04, 1987-08 #### [facility] ([id number]) [address], [address] [place] [address] CO2 [Moles/Vol] 28 mmol/L Normal 22-32 [facility] Comment on above: Performed By: #### C BCA, CMP, , 2776-04, 1987-08 #### [facility] ([id number]) [address], [address] [place] [address] Creatinine [Mass/Vol] 3.58 mg/dL High 0.40-1.00 [facility] Comment on above: Result Comment: METH OD TRACEABLE TO IDMS STANDARD Performed By: #### C BCA, CMP, , 2776-04, 1987-08 #### [facility] ([id number]) [address], [address] [place] [address] GFR/1.73 sq M.predicted among non-blacks MDRD (S/P/Bld) [Vol rate/Area] 14 mL/min/{1.73_m2} Low >59 [facility] Comment on above: Result Comment: Reported eGFR is based on the CKD-EPI 2020 equation that does not use a race coefficient. Performed By: #### C BCA, CMP, , 2776-04, 1987-08 #### [facility] ([id number]) [address], [address] [place] [address] Glucose [Mass/Vol] 133 mg/dL High 65-99 [facility] Comment on above: Performed By: #### C BCA, CMP, , 2776-04, 1987-08 #### [facility] ([id number]) [address], [address] [place] [address] Potassium [Moles/Vol] 4.8 mmol/L Normal 3.5-5.0 [facility] Comment on above: Performed By: #### C BCA, CMP, , 2776-04, 1987-08 #### [facility] ([id number]) [address], [address] [place] [address] Protein [Mass/Vol] 6.1 g/dL Normal 6.0-8.0 [facility] Comment on above: Performed By: #### C BCA, CMP, , 2776-04, 1987-08 #### [facility] ([id number]) [address], [address] [place] [address] Sodium [Moles/Vol] 135 mmol/L Normal 134-146 [facility] Comment on above: Performed By: #### C BCA, CMP, , 2776-04, 1987-08 #### [facility] ([id number]) [address], [address] [place] [address] Urea nitrogen [Mass/Vol] 70 mg/dL High 5-23 [facility] Comment on above: Performed By: #### C BCA, CMP, , 2776-04, 1987-08 #### [facility] ([id number]) [address], [address] [place] [address] Calcium.ionized (Bld) [Mass/ Vol]on 10-20-2023 IONIZED CALCIUM 4.6 mg/dL Normal 4.5-5.3 [facility] Comment on above: Performed By: #### C BCA, CMP, 89177-4, 2777-1, 1987- #### [facility] ([id number]) [address] [place] [address] IR BIOPSY RENAL PERC RTon IR BIOPSY [...] Mann MD on 10/20/2023 3:13 PM Normal [facility] MAGNESIUMon 10-20-2023 Magnesium [Mass/Vol] 2.3 mg/dL Normal 1.8-2.6 [facility] Comment on above: Performed By: #### C BCA, CMP, 92494-4, 2776-04, 1987-08 #### [facility] ([id number]) [address] [place] [address] [address] [place] [address] PHOSPHORUSon 10-20-2023 Phosphate [Mass/Vol] 6.3 mg/dL High 2.4-4.9 [facility] Comment on above: Performed By: #### C BCA, CMP, , 2776-04, 1987-08 #### [facility] ([id number]) [address] [place] [address], [address] [place] [address] Surgical Pathologyon 024 Surgical Pathology Normal [facility] Comment on above: Result Comment: [facility] [address] [place] [address] Surgical Pathology Consultation ADDENDUM [place] Patient Name:DANIELLE MONTANA:1965 (Age: 58)Gender:FTaken:4Reported:10/24/2023hysician(s):Wanda Mendez ([phone])Copy To:MD Natasha ROSALES M.D. Rec. #:[id number]: #[id number] Final Pathologic Diagnosis Right kidney, needle biopsy: Specimen sent to [facility]. Report Electronically Signed Out [facility]/10/24/2023Trace Meza MD Addendum (PHS) Date Reported: 10/24/2023 Results of routine histology and immunofluorescence dated 10/24/2023 are received from Deidra Bustos M.D., [facility], [address] [place] [address] and are as follows: Final Diagnosis: Kidney, [...] addendum. Please see the complete report from [facility] in the patient's EMR. Electronically Signed Out Trace Meza MD Addendum (PHS) Date Reported: 11/02/2023 Results of Addendum (Electron Microscopy) dated are received from Deidra Bustos M.D., [facility], [address] [place] [address] [place] and are as follows: Paraffin-based immunofluorescence [...] case. Please see the complete report from [facility] in the patient's EMR. Electronically Signed Out Trace eMza MD Addendum ([facility]) Date Reported: 11/08/2023 Results of Mass Spectrometry dated 11/07/2023 are received from Adan Yates M.D., Ph.D., [facility], [address] [place] [address] [place] and are as follows: MASS SPECTROMETRY Liquid chromatography tandem mass spectrometry (LC MS/MS) was performed on peptides extracted from glomeruli that were microdissected from the paraffin-embedded specimen. LC MS/MS did not detect a peptide profile consistent with any of the following antigens: PLA2R, THSD7A, EXT1/EXT2, NELL1, SEMA3B, CNTN1, NCAM1, PCSK6, PCDH7, FAT1 or NDNF. Please see the complete report from [facility] (more content not included)... CBC AND AUTO DIFFon 10-19-19 24 Band form neutrophils/100 WBC (Bld) 1.0 % Normal [facility] Comment on above: Performed By: #### C EDEL POOLE, , 2776-04, 1987-08 #### [facility] ([id number]) [address] [address] Erythrocyte distribution width (RBC) [Ratio] 14.9 % Normal 11.5-15.0 [facility] Comment on above: Performed By: #### Shahla POOLE CMP, , 2776-04, 1987-08 #### [facility] ([id number]) [address], [facility] [address] [place] [address] Hematocrit (Bld) [Volume fraction] 34.4 % Low 35-47 [facility] Comment on above: Performed By: #### C VIRGILIO CMP, , 2776-04, 1987-08 #### [facility] ([id number]) [address], [address] [address] Hemoglobin (Bld) [Mass/Vol] 11.4 g/dL Low 11.7-15.5 [facility] Comment on above: Performed By: #### C VIRGILIO CMP, , 2776-04, 1987-08 #### [facility] ([id number]) [address] [address] Lymphocytes (Bld) [#/Vol] 1.9 10*3/uL Normal 1.0-3.5 [facility] Comment on above: Performed By: #### C BCA, CMP, , 2776-04, 1987-08 #### [facility] ([id number]) [address], [address] [place] [address] Lymphocytes/100 WBC (Bld) 15.0 % Normal [facility] Comment on above: Performed By: #### Shahla BCA, CMP, , 2776-04, 1987-08 #### [facility] ([id number]) [address] [place] [address] MCH (RBC) [Entitic mass] 27.8 pg Normal 27-34 [facility] Comment on above: Performed By: #### C BCA, CMP, , 2776-04, 1987-08 #### [facility] ([id number]) [address] [place] [address] MCHC (RBC) [Mass/Vol] 33.2 g/dL Normal 32-36 [facility] Comment on above: Performed By: #### Shahla POOLE, CMP, , 2776-04, 1987-08 #### [facility] ([id number]) [address], [facility] [address] [place] [address] MCV (RBC) [Entitic vol] 84 fL Normal 80-100 P [facility] Comment on above: Performed By: #### Shahla BCA, CMP, , 2776-04, 1987-08 #### [facility] ([id number]) [address], [address] [place] [address] Metamyelocytes/100 WBC (Bld) 1.0 % Normal [facility] Comment on above: Performed By: #### Shahla BCA, CMP, , 2776-04, 1987-08 #### [facility] ([id number]) [address], [address] [place] [address] Monocytes (Bld) [#/Vol] 0.1 10*3/uL Normal 0-0.9 [facility] Comment on above: Performed By: #### C BCA, CMP, , 2776-04, 1987-08 #### [facility] ([id number]) [address] [place] [address] Monocytes/100 WBC (Bld) 1.0 % Normal P [facility] Comment on above: Performed By: #### Shahla BCA, CMP, , 2776-04, 1987-08 #### [facility] ([id number]) [address], [facility] [address] [place] [address] Neutrophils (Bld) [#/Vol] 10.4 10*3/uL High 1.5-6.6 [facility] Comment on above: Performed By: #### Shahla BCA, CMP, , 2776-04, 1987-08 #### [facility] ([id number]) [address], [address] [place] [address] Platelet mean volume (Bld) [Entitic vol] 9.3 fL Normal 7-12 [facility] Comment on above: Performed By: #### Shahla BCA, CMP, , 2776-04, 1987-08 #### [facility] ([id number]) [address] [place] [address] Platelets (Bld) [#/Vol] 324 10*3/uL Normal 150-450 [facility] Comment on above: Performed By: #### Shahla BCA, CMP, , 2776-04, 1987-08 #### [facility] ([id number]) [address], [facility] [address] [place] [address] POLYCHROMASIA 1+ Abnormal NONE [facility] Comment on above: Performed By: #### Shahla BCA, CMP, , 2776-04, 1987-08 #### [facility] ([id number]) [address], [address] [place] [address] RBC COUNT 4.09 X10E12/L Normal 3.80-5.20 [facility] Comment on above: Performed By: #### C BCA, CMP, , 2776-04, 1987-08 #### [facility] ([id number]) [address], [address] [place] [address] SEG NEUTROPHIL 82.0 % Normal [facility] Comment on above: Performed By: #### C BCA, CMP, , 2776-04, 1987-08 #### [facility] ([id number]) [address] [place] [address] WBC (Bld) [#/Vol] 12.5 10*3/uL High 4.0-11.0 [facility] Comment on above: Performed By: #### C BCA, CMP, , 2776-04, 1987-08 #### [facility] ([id number]) [address] [place] [address] COMPREHENSIVE METABOLIC PANE Phu 10-19-2023 Albumin [Mass/Vol] 3.7 g/dL Normal 3.2-5.3 [facility] Comment on above: Performed By: #### C BCA, CMP, , 2776-04, 1987-08 #### [facility] ([id number]) [address], [address] [place] [address] ALP [Catalytic activity/Vol] 58 U/L Normal 39-130 [facility] Comment on above: Performed By: #### C BCA, CMP, , 2776-04, 1987-08 #### [facility] ([id number]) [address], [address] [place] [address] ALT [Catalytic activity/Vol] 10 U/L Normal 0-31 [facility] Comment on above: Performed By: #### C BCA, CMP, , 2776-04, 1987-08 #### [facility] ([id number]) [address], [address] [place] [address] Anion gap [Moles/Vol] 13 mmol/L Normal 5-15 [facility] Comment on above: Performed By: #### C BCA, CMP, , 2776-04, 1987-08 #### [facility] ([id number]) [address], [address] [place] [address] AST [Catalytic activity/Vol] 17 U/L Normal 0-41 [facility] Comment on above: Performed By: #### C BCA, CMP, , 2776-04, 1987-08 #### [facility] ([id number]) [address] [place] [address] Bilirubin [Mass/Vol] 0.3 mg/dL Normal 0.3-1.2 [facility] Comment on above: Performed By: #### C BCA, CMP, , 2776-04, 1987-08 #### [facility] ([id number]) [address], [address] [place] [address] Calcium [Mass/Vol] 9.9 mg/dL Normal 8.5-10.5 [facility] Comment on above: Performed By: #### C BCA, CMP, , 2776-04, 1987-08 #### [facility] ([id number]) [address], [address] [place] [address] Chloride [Moles/Vol] 95 mmol/L Low 98-109 [facility] Comment on above: Performed By: #### C BCA, CMP, , 2776-04, 1987-08 #### [facility] ([id number]) [address], [address] [place] [address] CO2 [Moles/Vol] 28 mmol/L Normal 22-32 [facility] Comment on above: Performed By: #### C VIRGILIO, CMP, , 2776-04, 1987-08 #### [facility] ([id number]) [address], [address] [place] [address] Creatinine [Mass/Vol] 3.62 mg/dL High 0.40-1.00 [facility] Comment on above: Result Comment: METH OD TRACEABLE TO IDMS STANDARD Performed By: #### C VIRGILIO, CMP, , 2776-04, 1987-08 #### [facility] ([id number]) [address] [place] [address] GFR/1.73 sq M.predicted among non-blacks MDRD (S/P/Bld) [Vol rate/Area] 14 mL/min/{1.73_m2} Low >59 [facility] Comment on above: Result Comment: Reported eGFR is based on the CKD-EPI 2020 equation that does not use a race coefficient. Performed By: #### C EDEL POOLE, , 2776-04, 1987-08 #### [facility] ([id number]) [address], [address] [place] [address] Glucose [Mass/Vol] 146 mg/dL High 65-99 [facility] Comment on above: Performed By: #### C VIRGILIO CMP, , 2776-04, 1987-08 #### [facility] ([id number]) [address], [address] [place] [address] Potassium [Moles/Vol] 5.2 mmol/L High 3.5-5.0 [facility] Comment on above: Performed By: #### C VIRGILIO, CMP, , 2776-04, 1987-08 #### [facility] ([id number]) [address], [address] [place] [address] Protein [Mass/Vol] 6.4 g/dL Normal 6.0-8.0 [facility] Comment on above: Performed By: #### C BCA, CMP, , 2776-04, 1987-08 #### [facility] ([id number]) [address], [address] [place] [address] Sodium [Moles/Vol] 136 mmol/L Normal 134-146 [facility] Comment on above: Performed By: #### C BCA, CMP, , 2776-04, 1987-08 #### [facility] ([id number]) [address], [address] [place] [address] Urea nitrogen [Mass/Vol] 53 mg/dL High 5-23 [facility] Comment on above: Performed By: #### C BCA, CMP, , 2776-04, 1987-08 #### [facility] ([id number]) [address], [address] [place] [address] CRP [Mass/Vol]on 10-19-2023 C REACTIVE PROTEIN 0.9 mg/dL High 0.000-0.7 4 4 [facility] Comment on above: Performed By: #### C BCA, CMP, , 2776-04, 1987-08 #### [facility] ([id number]) [address], [address] [place] [address] Calcium.ionized (Bld) [Mass/ Vol]on 10-19-2023 IONIZED CALCIUM 4.6 mg/dL Normal 4.5-5.3 [facility] Comment on above: Performed By: #### 3 8230-9 #### [facility] ([id number]) [address], [address] [place] [address] IMMUNOGLOBULINSon 10-19-2023 IgA [Mass/Vol] 109 mg/dL Normal 68-378 [facility] Comment on above: Performed By: #### P INR, 34835-8, IMGB #### [facility] ([id number]) [address] [place] [address] IgG [Mass/Vol] 460 mg/dL Low 635-1741 [facility] Comment on above: Performed By: #### P INR, 40787-9, IMGB #### [facility] ([id number]) [address], [address] [place] [address] IgM [Mass/Vol] 98 mg/dL Normal 45-281 [facility] Comment on above: Performed By: #### P INR, 81496-0, IMGB #### [facility] ([id number]) [address] [place] [address] MAGNESIUMon 10-19-2023 Magnesium [Mass/Vol] 2.0 mg/dL Normal 1.8-2.6 [facility] Comment on above: Performed By: #### C BCA, CMP, , 2776-04, 1987-08 #### [facility] ([id number]) [address], [address] [place] [address] PHOSPHORUSon 10-19-2023 Phosphate [Mass/Vol] 4.8 mg/dL Normal 2.4-4.9 [facility] Comment on above: Performed By: #### C BCA, CMP, , 2776-04, 1987-08 #### [facility] ([id number]) [address] [place] [address] PLATELET FUNCTIONon 10-19-19 24 COLLAGEN/ADP 72 sec Normal 0-114 [facility] Comment on above: Performed By: #### P FA, PINR, 06545-8 #### [facility] ([id number]) [address], [address] [place] [address] COLLAGEN/EPINEPHRINE 81 sec Normal 0-179 [facility] Comment on above: Performed By: #### P FA, PINR, 48889-3 #### [facility] ([id number]) [address] [place] [address] PFA INTERP Platelet function is normal. If patient Normal [facility] Comment on above: Result Comment: hist ory/physical examination gives strong indication of a bleeding disorder, consider testing for other etiologies. Performed By: #### P FA, PINR, 88369-6 #### [facility] ([id number]) [address], [address] [place] [address] PROTIME AND INRon 10-19-2023 INR Coag (PPP) [Relative time] 0.9 {INR} Normal 0.8-1.1 [facility] Comment on above: Performed By: #### C VIRGILIO CMP, , 2776-04, 1987-08 #### [facility] ([id number]) [address] [place] [address] PT Coag (PPP) [Time] 10.4 s Normal 9.8-13.2 [facility] Comment on above: Performed By: #### C BCA, CMP, , 2776-04, 1987-08 #### [facility] ([id number]) [address] [address] [place] [address] INR Coag (PPP) [Relative time] 0.9 {INR} Normal 0.8-1.1 [facility] Comment on above: Performed By: #### P INR, 57431-7, IMGB #### [facility] ([id number]) [address] [place] [address] PT Coag (PPP) [Time] 10.4 s Normal 9.8-13.2 [facility] Comment on above: Performed By: #### P INR, 63577-6, IMGB #### [facility] ([id number]) [address], [address] [place] [address] aPTT Coag (PPP) [Time]on aPTT Coag (Bld) [Time] 40 s High 26-37 [facility] Comment on above: Performed By: #### C BCA, CMP, , 2776-04, 1987-08 #### [facility] ([id number]) [address], [address] [place] [address] aPTT Coag (Bld) [Time] 34 s Normal 26-37 Pr [facility] Comment on above: Performed By: #### P INR, 36232-6, IMGB #### [facility] ([id number]) [address], [address] [place] [address] Basement membrane IgG Qn (S) on 10-18-2023 Glomerular Base Memb IgG <0.2 Normal <1. 0 (Negative) [facility] Comment on above: Result Comment: NOTE Test Performed by: [place] [address] Claims Representative: Ledy Son Ph.D.; CLIA# [id number] Performed By: #### 8 9579-7 #### [facility] ([id number]) [address] [place] [address] 08553 CBC AND AUTO DIFFon 10-18-19 24 ABSOLUTE BASOPHIL 0.1 X10E9/L Normal 0.0-0.2 [facility] Comment on above: Performed By: #### C VIRGILIO, CMP, , 2776-04 ####[facility] ([id number])[address] [place] [address] 56150 ABSOLUTE NEUTROPHIL 4.5 X10E9/L Normal 1.5-6.6 [facility] Comment on above: Performed By: #### C BCA, CMP, , 2776-04 ####[facility] ([id number])[address] [place] [address] 54062 Basophils/100 WBC (Bld) 1.0 % Normal P [facility] Comment on above: Performed By: #### C EDEL POOLE, , 2776-04 ####[facility] ([id number])[address] [place] [address] 66730 Eosinophils (Bld) [#/Vol] 0.4 10*3/uL Normal 0.0-0.4 [facility] Comment on above: Performed By: #### Shahla POOLE CMP, , 2776-04 ####[facility] ([id number])[address] [place] [address] 72259 Eosinophils/100 WBC (Bld) 5.1 % Normal [facility] Comment on above: Performed By: #### Shahla POOLE CMP, , 2776-04 ####[facility] ([id number])[address] [place] [address] 33608 Erythrocyte distribution width (RBC) [Ratio] 15.0 % Normal 11.5-15.0 [facility] Comment on above: Performed By: #### Shahla POOLE CMP, , 2776-04 ####[facility] ([id number])[address] [place] [address] 78195 Hematocrit (Bld) [Volume fraction] 31.7 % Low 35-47 [facility] Comment on above: Performed By: #### Shahla POOLE CMP, , 2776-04 ####[facility] ([id number])[address] [place] [address] 77509 Hemoglobin (Bld) [Mass/Vol] 10.5 g/dL Low 11.7-15.5 [facility] Comment on above: Performed By: #### Shahla POOLE CMP, , 2776-04 ####[facility] ([id number])[address] [place] [address] 43671 Lymphocytes (Bld) [#/Vol] 2.1 10*3/uL Normal 1.0-3.5 [facility] Comment on above: Performed By: #### Shahla POOLE CMP, , 2776-04 ####[facility] ([id number])[address] [place] [address] 93397 Lymphocytes/100 WBC (Bld) 27.3 % Normal [facility] Comment on above: Performed By: #### Shahla POOLE CMP, , 2776-04 ####[facility] ([id number])[address] [place] [address] 99677 MCH (RBC) [Entitic mass] 27.7 pg Normal 27-34 [facility] Comment on above: Performed By: #### Shahla POOLE CMP, , 2776-04 ####[facility] ([id number])[address] [place] [address] 10213 MCHC (RBC) [Mass/Vol] 33.1 g/dL Normal 32-36 [facility] Comment on above: Performed By: #### Shahla POOLE CMP, , 2776-04 ####[facility] ([id number])[address] [place] [address] 27722 MCV (RBC) [Entitic vol] 84 fL Normal 80-100 [facility] Comment on above: Performed By: #### Shahla POOLE CMP, , 2776-04 ####[facility] ([id number])[address] [place] [address] 01546 Monocytes (Bld) [#/Vol] 0.7 10*3/uL Normal 0-0.9 [facility] Comment on above: Performed By: #### Shahla POOLE CMP, , 2776-04 ####[facility] ([id number])[address] [place] [address] 01942 Monocytes/100 WBC (Bld) 9.1 % Normal [facility] Comment on above: Performed By: #### Shahla POOLE CMP, , 2776-04 ####[facility] ([id number])[address] [place] [address] 35457 Neutrophils/100 WBC (Bld) 57.5 % Normal [facility] Comment on above: Performed By: #### Shahla POOLE CMP, , 2776-04 ####[facility] ([id number])[address] [place] [address] 02804 Platelet mean volume (Bld) [Entitic vol] 8.9 fL Normal 7-12 [facility] Comment on above: Performed By: #### Shahla POOLE CMP, , 2776-04 ####[facility] ([id number])[address] [place] [address] 83243 Platelets (Bld) [#/Vol] 328 10*3/uL Normal 150-450 [facility] Comment on above: Performed By: #### Shahla POOLE CMP, , 2776-04 ####[facility] ([id number])[address] [place] [address] 18445 RBC COUNT 3.77 X10E12/L Low 3.80-5.20 [facility] Comment on above: Performed By: #### Shahla POOLE CMP, , 2776-04 ####[facility] ([id number])[address] [place] [address] 12071 WBC (Bld) [#/Vol] 7.8 10*3/uL Normal 4.0-11.0 [facility] Comment on above: Performed By: #### Shahla POOLE CMP, , 2776-04 ####[facility] ([id number])[address] [place] [address] 55475 CBC auto differentialon 06-2 6-2024 Basophils (Bld) [#/Vol] 0.1 10*3/uL [facility] Basophils/100 WBC (Bld) 1.0 % P [facility] Eosinophils (Bld) [#/Vol] 0.4 10*3/uL [facility] Eosinophils/100 WBC (Bld) 5.1 % [facility] Erythrocyte distribution width (RBC) [Ratio] 15.0 % 11.5 - 15.0 % [facility] Hematocrit (Bld) [Volume fraction] 31.7 % Low 35 - 47 % [facility] Hemoglobin (Bld) [Mass/Vol] 10.5 g/dL Low 11.7 - 15.5 g/dL [facility] Interpretation and review of laboratory results Abnormal [facility] Lymphocytes (Bld) [#/Vol] 2.1 10*3/uL [facility] Lymphocytes/100 WBC (Bld) 27.3 % [facility] MCH (RBC) [Entitic mass] 27.7 pg 27 - 34 pg [facility] MCHC (RBC) [Mass/Vol] 33.1 g/dL 32 - 3 6 g/dL [facility] MCV (RBC) [Entitic vol] 84 fL 80 - 100 fL [facility] Monocytes (Bld) [#/Vol] 0.7 10*3/uL [facility] Monocytes/100 WBC (Bld) 9.1 % P [facility] Neutrophils (Bld) [#/Vol] 4.5 10*3/uL [facility] Neutrophils/100 WBC (Bld) 57.5 % [facility] Platelet mean volume (Bld) [Entitic vol] 8.9 fL 7 - 12 fL [facility] Platelets (Bld) [#/Vol] 328 10*3/uL [facility] RBC (Bld) [#/Vol] 3.77 10*6/uL Low [facility] WBC corrected for nucl RBC Auto (Bld) [#/Vol] 7.8 [facility] COMPREHENSIVE METABOLIC PANE Phu 10-18-2023 Albumin [Mass/Vol] 3.1 g/dL Low 3.2-5.3 [facility] Comment on above: Performed By: #### C BCA, CMP, , 2776-04 ####[facility] ([id number])[address] [place] [address] 61838 ALP [Catalytic activity/Vol] 57 U/L Normal 39-130 [facility] Comment on above: Performed By: #### C BCA, CMP, , 2776-04 ####[facility] ([id number])[address] [place] [address] 60254 ALT [Catalytic activity/Vol] 10 U/L Normal 0-31 [facility] Comment on above: Performed By: #### C BCA, CMP, , 2776-04 ####[facility] ([id number])[address] [place] [address] 67063 Anion gap [Moles/Vol] 11 mmol/L Normal 5-15 [facility] Comment on above: Performed By: #### C BCA, CMP, , 2776-04 ####[facility] ([id number])[address] [place] [address] [place] [address] AST [Catalytic activity/Vol] 14 U/L Normal 0-41 [facility] Comment on above: Performed By: #### C BCA, CMP, , 2776-04 ####[facility] ([id number])[address] [place] [address] [place] [address] Bilirubin [Mass/Vol] 0.7 mg/dL Normal 0.3-1.2 [facility] Comment on above: Performed By: #### C BCA, CMP, , 2776-04 ####[facility] ([id number])[address] [place] [address] [place] [address] Calcium [Mass/Vol] 9.3 mg/dL Normal 8.5-10.5 [facility] Comment on above: Performed By: #### C EDEL POOLE, , 2776-04 ####[facility] ([id number])[address] [place] [address] 92115 Chloride [Moles/Vol] 97 mmol/L Low 98-109 [facility] Comment on above: Performed By: #### C EDEL POOLE, , 2776-04 ####[facility] ([id number])[address] [place] [address] 23235 CO2 [Moles/Vol] 29 mmol/L Normal 22-32 [facility] Comment on above: Performed By: #### C EDEL POOLE, , 2776-04 ####[facility] ([id number])[address] [place] [address] 16325 Creatinine [Mass/Vol] 2.98 mg/dL High 0.40-1.00 [facility] Comment on above: Result Comment: METH OD TRACEABLE TO IDMS STANDARD Performed By: #### C EDEL POOLE, , 2776-04 ####[facility] ([id number])[address] [place] [address] 80325 GFR/1.73 sq M.predicted among non-blacks MDRD (S/P/Bld) [Vol rate/Area] 18 mL/min/{1.73_m2} Low >59 [facility] Comment on above: Result Comment: Reported eGFR is based on the CKD-EPI 1 equation that does not use a race coefficient. Performed By: #### C EDEL POOLE, , 2776-04 ####[facility] ([id number])[address] [place] [address] 91457 Glucose [Mass/Vol] 92 mg/dL Normal 65-99 [facility] Comment on above: Performed By: #### C EDEL POOLE, , 2776-04 ####[facility] ([id number])[address] [place] [address] 23012 Potassium [Moles/Vol] 4.2 mmol/L Normal 3.5-5.0 [facility] Comment on above: Performed By: #### C BCA, CMP, 13315-2, 2777-1 ####[facility] ([id number])[address] [place] [address] 72446 Protein [Mass/Vol] 6.0 g/dL Normal 6.0-8.0 [facility] Comment on above: Performed By: #### C VIRGILIO, CMP, , 7-1 ####[facility] ([id number])[address] [place] [address] 11789 Sodium [Moles/Vol] 137 mmol/L Normal 134-146 [facility] Comment on above: Performed By: #### C VIRGILIO, CMP, , 27771 ####[facility] ([id number])[address] [place] [address] 37736 Urea nitrogen [Mass/Vol] 37 mg/dL High 5-23 [facility] Comment on above: Performed By: #### C BCA, CMP, , 2777-1 ####[facility] ([id number])[address] [place] [address] 81033 Calcium.ionized (Bld) [Moles /Vol]on 10-18-2023 [facility] PORTABLE ICA 4.7 mg/dL Normal 4.5-5.3 [facility] Comment on above: Performed By: #### 8 9579-7 #### [facility] ([id number]) [address] [place] [address] 21259 Clinical Pathology Reviewon 10-18-2023 [facility] [address] [place] [address] Clinical Pathology Report Patient Name:DANIELLE MONTANA:1965 (Age: 58)Gender:FTaken:09/23eported:hysician(s):Soniya Flores MD ([phone])Copy To: Rec. 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 No monoclonal protein identified. Report Electronically Signed Out df/10/18/2023nicci Gomez MD [facility] [email or web address] [address], License number: [id number]. Clinical History D17.9, I16.0, E87.6. URINE PROTEIN ELECTROPHORESIS SAMPLE NUMBER: [id number] RELATIVE ELECTROPHORETIC CONCENTRATIONS (%) ? 100.0 Urine Protein 1410 mg/L (Electrophoretic gels and densitometric tracings on file in lab.) Specimen(s) Received Urine Protein Electrophoresis Fee Codes(s): 1; 15968-23 COPATH [facility] Comprehensive metabolic pane phu 10-18-2023 Albumin [Mass/Vol] 3.1 g/dL Low 3.2 - 5.3 g/dL [facility] ALP [Catalytic activity/Vol] 57 U/L 39 - 130 U/L [facility] ALT No additional P-5'-P [Catalytic activity/Vol] 10 U/L 0 - 31 U/L [facility] Anion gap [Moles/Vol] 11 mmol/L 5 - 15 mmol/L [facility] AST [Catalytic activity/Vol] 14 U/L 0 - 41 U/L [facility] Bilirubin [Mass/Vol] 0.7 mg/dL 0.3 - 1 .2 mg/dL [facility] Calcium [Mass/Vol] 9.3 mg/dL 8.5 - 10. 5 mg/dL [facility] Chloride [Moles/Vol] 97 mmol/L Low 98 - 10 9 mmol/L [facility] CO2 [Moles/Vol] 29 mmol/L 22 - 32 mmol/L [facility] Creatinine [Mass/Vol] 2.98 mg/dL High 0.40 - 1.00 mg/dL [facility] Comment on above: METHOD TRACEABLE TO [facility] STANDARD eGFR (CKD-EPI)non-race dependent 18 Low - PINF [facility] Comment on above: Reported eGFR is based on the CKD-EPI 2020 equation that does not use a race coefficient. Glucose [Mass/Vol] 92 mg/dL 65 - 99 mg/dL [facility] Interpretation and review of laboratory results Abnormal [facility] Potassium [Moles/Vol] 4.2 mmol/L 3.5 - 5.0 mmol/L [facility] Protein [Mass/Vol] 6.0 g/dL 6.0 - 8.0 g/dL [facility] Sodium [Moles/Vol] 137 mmol/L 134 - 146 mmol/L [facility] Urea nitrogen [Mass/Vol] 37 mg/dL High 5 - 23 mg/dL [facility] MAGNESIUMon 10-18-2023 Magnesium [Mass/Vol] 2.0 mg/dL Normal 1.8-2.6 [facility] Comment on above: Performed By: #### C BCA, CMP, 43232-1, 2777-1 ####[facility] ([id number])[address] [place] [address] Magnesiumon 10-18-2023 Magnesium [Mass/Vol] 2.0 mg/dL 1.8 - 2 .6 mg/dL [facility] Myeloperoxidase IgG Qn (S)on 10-18-2023 Myeloperoxidase IgG >8.0 High <0.4 (Negative) [facility] Comment on above: Result Comment: NOTE Interpretation: Positive (>=1.0) Test Performed by: [address] [address] Claims Representative: Ledy Son Ph.D.; CLIA# [id number] Performed By: #### 8 9579-7 #### [facility] ([id number]) [address] [place] [address] No Panel Informationon 10-17 [facility] PHOSPHORUSon 10-18-2023 Phosphate [Mass/Vol] 5.1 mg/dL High 2.4-4.9 [facility] Comment on above: Performed By: #### C VIRGILIO, CMP, 47458-5, 2777-1 ####[facility] ([id number])[address] [place] [address] 65465 POCT Ionized Calciumon 10-17 Calcium.ionized (Bld) [Moles/Vol] 4.7 mg/dL 4.5 - 5.3 mg/dL [facility] Phosphate [Mass/Vol]on 10-17 Interpretation and review of laboratory results Abnormal [facility] Phosphoruson 10-18-2023 Phosphate [Mass/Vol] 5.1 mg/dL High 2.4 - 4 .9 mg/dL [facility] CBC AND AUTO DIFFon 10-17-19 ABSOLUTE BASOPHIL 0.1 X10E9/L Normal 0.0-0.2 [facility] Comment on above: Performed By: #### C VIRGILIO, BMP, , 26491-7, 21365-0 #### [facility] ([id number]) [address] [place] [address] 02583 ABSOLUTE NEUTROPHIL 4.9 X10E9/L Normal 1.5-6.6 [facility] Comment on above: Performed By: #### C VIRGILIO, BMP, , 07935-5, 13166-5 #### [facility] ([id number]) [address] [place] [address] 55155 Basophils/100 WBC (Bld) 0.7 % Normal [facility] Comment on above: Performed By: #### C BCA, BMP, 66331-2, 46149-0, 52904-3 #### [facility] ([id number]) [address] [place] [address] 12860 Eosinophils (Bld) [#/Vol] 0.3 10*3/uL Normal 0.0-0.4 [facility] Comment on above: Performed By: #### C VIRGILIO, BMP, , 46827-2, 10567-2 #### [facility] ([id number]) [address] [place] [address] 98347 Eosinophils/100 WBC (Bld) 4.3 % Normal [facility] Comment on above: Performed By: #### C VIRGILIO, BMP, , 81640-0, 08177-8 #### [facility] ([id number]) [address] [place] [address] 16350 Erythrocyte distribution width (RBC) [Ratio] 14.7 % Normal 11.5-15.0 [facility] Comment on above: Performed By: #### Shahla POOLE, MARIO, , 91942-0, 26891-1 #### [facility] ([id number]) [address] [place] [address] 39670 Hematocrit (Bld) [Volume fraction] 30.3 % Low 35-47 [facility] Comment on above: Performed By: #### C VIRGILIO, BMP, , 66868-4, 46948-8 #### [facility] ([id number]) [address] [place] [address] 51881 Hemoglobin (Bld) [Mass/Vol] 10.1 g/dL Low 11.7-15.5 [facility] Comment on above: Performed By: #### C VIRGILIO, BMP, , 84363-0, 78017-9 #### [facility] ([id number]) [address] [place] [address] 43920 Lymphocytes (Bld) [#/Vol] 1.9 10*3/uL Normal 1.0-3.5 [facility] Comment on above: Performed By: #### C BCA, BMP, , 67512-3, 58972-4 #### [facility] ([id number]) [address] [place] [address] 97223 Lymphocytes/100 WBC (Bld) 24.6 % Normal [facility] Comment on above: Performed By: #### C BCA, BMP, , 50969-6, 95695-5 #### [facility] ([id number]) [address] [place] [address] 65767 MCH (RBC) [Entitic mass] 27.9 pg Normal 27-34 [facility] Comment on above: Performed By: #### C VIRGILIO, BMP, , 48030-7, 53744-3 #### [facility] ([id number]) [address] [place] [address] 72408 MCHC (RBC) [Mass/Vol] 33.4 g/dL Normal 32-36 [facility] Comment on above: Performed By: #### C BCA, BMP, , 93851-8, 59815-5 #### [facility] ([id number]) [address] [place] [address] 68994 MCV (RBC) [Entitic vol] 84 fL Normal 80-100 [facility] Comment on above: Performed By: #### Shahla BCA, BMP, , 40496-7, 76049-3 #### [facility] ([id number]) [address] [place] [address] 27796 Monocytes (Bld) [#/Vol] 0.6 10*3/uL Normal 0-0.9 [facility] Comment on above: Performed By: #### Shahla BCA, BMP, , 32582-0, 30135-2 #### [facility] ([id number]) [address] [place] [address] 05600 Monocytes/100 WBC (Bld) 8.3 % Normal [facility] Comment on above: Performed By: #### C BCA, BMP, 31003-5, 57354-1, 48108-3 #### [facility] ([id number]) [address] [place] [address] 07627 Neutrophils/100 WBC (Bld) 62.1 % Normal [facility] Comment on above: Performed By: #### C BCA, BMP, 09207-2, 20086-8, 11221-9 #### [facility] ([id number]) [address] [place] [address] 84482 Platelet mean volume (Bld) [Entitic vol] 9.0 fL Normal 7-12 [facility] Comment on above: Performed By: #### Shahla BCA, BMP, 49550-1, 18058-4, 77731-5 #### [facility] ([id number]) [address] [place] [address] 04729 Platelets (Bld) [#/Vol] 278 10*3/uL Normal 150-450 [facility] Comment on above: Performed By: #### C BCA, BMP, 36439-0, 30657-2, 13059-4 #### [facility] ([id number]) [address] [place] [address] 48266 RBC COUNT 3.62 X10E12/L Low 3.80-5.20 [facility] Comment on above: Performed By: #### C BCA, BMP, 26788-1, 48982-8, 58253-4 #### [facility] ([id number]) [address] [place] [address] 30687 WBC (Bld) [#/Vol] 7.9 10*3/uL Normal 4.0-11.0 [facility] Comment on above: Performed By: #### C BCA, BMP, 21957-7, 04507-6, 72548-2 #### [facility] ([id number]) [address] [facility] [place] [address] CBC auto differentialon 09-23 Basophils (Bld) [#/Vol] [...] 10-17-2023 Albumin [Mass/Vol] 3.0 g/dL Low 3.2-5.3 [facility] Comment on above: Performed By: #### C BCA, BMP, 55302-0, 82818-9, 00074-0 #### [facility] ([id number]) [address] [place] [address] 48721 ALP [Catalytic activity/Vol] 56 U/L Normal 39-130 [facility] Comment on above: Performed By: #### C BCA, BMP, 19194-4, 85588-4, 94252-8 #### [facility] ([id number]) [address] [place] [address] 92049 ALT [Catalytic activity/Vol] 10 U/L Normal 0-31 [facility] Comment on above: Performed By: #### C BCA, BMP, 85570-1, 46088-4, 75320-8 #### [facility] ([id number]) [address] [place] [address] 48341 Anion gap [Moles/Vol] 10 mmol/L Normal 5-15 [facility] Comment on above: Performed By: #### C BCA, BMP, 35217-6, 07177-1, 30700-3 #### [facility] ([id number]) [address] [place] [address] 05644 AST [Catalytic activity/Vol] 14 U/L Normal 0-41 [facility] Comment on above: Performed By: #### C BCA, BMP, 27590-2, 48152-6, 97298-1 #### [facility] ([id number]) [address] [place] [address] 20781 Bilirubin [Mass/Vol] 0.7 mg/dL Normal 0.3-1.2 [facility] Comment on above: Performed By: #### C BCA, BMP, 00869-7, 19681-0, 76261-4 #### [facility] ([id number]) [address] [place] [address] 03793 Calcium [Mass/Vol] 8.8 mg/dL Normal 8.5-10.5 [facility] Comment on above: Performed By: #### C BCA, BMP, 33740-4, 55600-6, 05474-9 #### [facility] ([id number]) [address] [place] [address] 65029 Chloride [Moles/Vol] 101 mmol/L Normal 98-109 [facility] Comment on above: Performed By: #### C BCA, BMP, 15390-5, 29758-3, 07519-9 #### [facility] ([id number]) [address] [place] [address] 34478 CO2 [Moles/Vol] 28 mmol/L Normal 22-32 [facility] Comment on above: Performed By: #### C BCA, BMP, 60922-8, 11000-8, 46296-1 #### [facility] ([id number]) [address] [place] [address] 82290 Creatinine [Mass/Vol] 2.77 mg/dL High 0.40-1.00 [facility] Comment on above: Result Comment: METH OD TRACEABLE TO IDMS STANDARD Performed By: #### C BCA, BMP, 77925-2, 14165-9, 28752-4 #### [facility] ([id number]) [address] [place] [address] 91172 GFR/1.73 sq M.predicted among non-blacks MDRD (S/P/Bld) [Vol rate/Area] 19 mL/min/{1.73_m2} Low >59 [facility] Comment on above: Result Comment: Reported eGFR is based on the CKD-EPI 2020 equation that does not use a race coefficient. Performed By: #### C BCA, BMP, 43635-4, 39973-0, 44524-1 #### [facility] ([id number]) [address] [place] [address]2869 Glucose [Mass/Vol] 97 mg/dL Normal 65-99 [facility] Comment on above: Performed By: #### C BCA, BMP, , 86597-1, 63029-2 #### [facility] ([id number]) [address] [place] [address] 70569 Potassium [Moles/Vol] 3.6 mmol/L Normal 3.5-5.0 [facility] Comment on above: Performed By: #### C BCA, BMP, , 08791-0, 91432-3 #### [facility] ([id number]) [address] [place] [address]85 Protein [Mass/Vol] 5.7 g/dL Low 6.0-8.0 [facility] Comment on above: Performed By: #### C BCA, BMP, , 47667-4, 05953-2 #### [facility] ([id number]) [address] [place] [address] 89215 Sodium [Moles/Vol] 139 mmol/L Normal 134-146 [facility] Comment on above: Performed By: #### C BCA, BMP, , 80829-4, 12161-3 #### [facility] ([id number]) [address] [place] [address] [place] [address] Urea nitrogen [Mass/Vol] 26 mg/dL High 5-23 [facility] Comment on above: Performed By: #### C BCA, BMP, , 80444-8, 10754-8 #### [facility] ([id number]) [address] [place] [address]9220 Calcium.ionized (Bld) [Moles /Vol]on 10-17-2023 [facility] PORTABLE ICA 4.7 mg/dL Normal 4.5-5.3 [facility] Comment on above: Performed By: #### C BCA, BMP, 22489-7, 67358-5, 71995-9 #### [facility] ([id number]) [address] [facility] [place] [address] Comprehensive metabolic pane phu 10-17-2023 Albumin [Mass/Vol] 3.0 g/dL Low 3.2 - 5.3 g/dL [facility] ALP [Catalytic activity/Vol] 56 U/L 39 - 130 U/L [facility] ALT No additional P-5'-P [Catalytic activity/Vol] 10 U/L 0 - 31 U/L [facility] Anion gap [Moles/Vol] 10 mmol/L 5 - 15 mmol/L [facility] AST [Catalytic activity/Vol] 14 U/L 0 - 41 U/L [facility] Bilirubin [Mass/Vol] 0.7 mg/dL 0.3 - 1 .2 mg/dL [facility] Calcium [Mass/Vol] 8.8 mg/dL 8.5 - 10. 5 mg/dL [facility] Chloride [Moles/Vol] 101 mmol/L 98 - 10 9 mmol/L [facility] CO2 [Moles/Vol] 28 mmol/L 22 - 32 mmol/L [facility] Creatinine [Mass/Vol] 2.77 mg/dL High 0.40 - 1.00 mg/dL [facility] Comment on above: METHOD TRACEABLE TO IDNE STANDARD eGFR (CKD-EPI)non-race dependent 19 Low - PINF [facility] Comment on above: Reported eGFR is based on the CKD-EPI 2020 equation that does not use a race coefficient. Glucose [Mass/Vol] 97 mg/dL 65 - 99 mg/dL [facility] Interpretation and review of laboratory results Abnormal [facility] Potassium [Moles/Vol] 3.6 mmol/L 3.5 - 5.0 mmol/L [facility] Protein [Mass/Vol] 5.7 g/dL Low 6.0 - 8.0 g/dL [facility] Sodium [Moles/Vol] 139 mmol/L 134 - 146 mmol/L [facility] Urea nitrogen [Mass/Vol] 26 mg/dL High 5 - 23 mg/dL [facility] Creatinine, urine, 24 houron 10-17-2023 Creatinine (24H U) [Mass/Time] 1.38 [facility] FECAL OCCULT BLOODon 024 Hemoglobin.gastrointesti nal Ql (Stl) Negative Normal NEG [facility] Comment on above: Performed By: #### 2 335-8 ####[facility] ([id number])[address] [place] [address] Glomerular Basement Membrane IgG, Serumon 10-17-2023 Basement membrane IgG Qn (S) U <1.0 (Negative) U [facility] Comment on above: NOTE Test Performed by: [place] [address] Claims Representative: Ledy Son Ph.D.; CLIA# [id number] Hemoglobin.gastrointestinal Ql (Stl)on 10-17-2023 [facility] MAGNESIUMon 10-17-2023 Magnesium [Mass/Vol] 2.0 mg/dL Normal 1.8-2.6 [facility] Comment on above: Performed By: #### C BCA, [facility], 85267-7, 22525-4, 21623-3 #### [facility] ([id number]) [address] [place] [address] Magnesiumon 10-17-2023 Magnesium [Mass/Vol] 2.0 mg/dL 1.8 - 2 .6 mg/dL [facility] Myeloperoxidase Antibodies, IgG, Serumon 10-17-2023 Myeloperoxidase IgG Qn (S) U High <0.4 (Negative) U [facility] Comment on above: NOTE Interpretation: Positive (>=1.0) Test Performed by: [place] [address] Claims Representative: Ledy Son Ph.D.; CLIA# [id number] Myeloperoxidase IgG Qn (S)on 10-17-2023 Interpretation and review of laboratory results Abnormal [facility] NM Lung Ventilationon 2023 Clinical [...] Tony Lowery MD on 10/17/2023 9:13 AM [facility] Tony Lowery MD - 10/17/2023 Clinical [...] Tony Lowery MD on 10/17/2023 9:13 AM [facility] Radiology Study observation (narrative) [facility] NM Lung VentilationOrdered B y: Tony Lowery on 10-17-2023 [facility] Work Phone: NM VENTILATION PERFUSION [...] Lowery MD on 10/17/2023 9:13 AM Normal [facility] No Panel Informationon 10-16 [facility] Occult blood x 1, stoolon Hemoglobin.gastrointesti nal Ql (Stl) Negative Negative^N egative [facility] PHOSPHORUSon 10-17-2023 Phosphate [Mass/Vol] 4.1 mg/dL Normal 2.4-4.9 [facility] Comment on above: Performed By: #### C BCA, BMP, 57191-4, 15927-9, 98330-3 #### [facility] ([id number]) [address] [place] [address]00 POCT Ionized Calciumon 10-16 Calcium.ionized (Bld) [Moles/Vol] 4.7 mg/dL 4.5 - 5.3 mg/dL [facility] POTASSIUMon 10-17-2023 Potassium [Moles/Vol] 4.2 mmol/L Normal 3.5-5.0 [facility] Comment on above: Performed By: #### 2 823-3 ####[facility] ([id number])[address] [place] [address] Phosphate [Mass/Vol]on 10-16 [facility] Phosphoruson 10-17-2023 Phosphate [Mass/Vol] 4.1 mg/dL 2.4 - 4 .9 mg/dL [facility] Potassiumon 10-17-2023 Potassium [Moles/Vol] 4.2 mmol/L 3.5 - 5.0 mmol/L [facility] Potassium [Moles/Vol]on 09-23 [facility] Protein, urine, 24 houron Interpretation and review of laboratory results Abnormal [facility] Protein (24H U) [Mass/Time] 6380 High [facility] Proteinase 3 IgGon Proteinase 3 IgG IA Qn 0.2 U <0.4 (Negative) [facility] Comment on above: NOTE Test Performed by: [address], [place] [address] Claims Representative: Ledy Son Ph.D.; CLIA# [id number] THYROID PROFILEon 10-17-2023 Free T4 [Mass/Vol] 1.19 ng/dL Normal 0.61-1.60 [facility] Comment on above: Performed By: #### C VIRGILIO, [facility], 56293-5, 33812-0, 52530-3 #### [facility] ([id number]) [address] [place] [address] 05768 TSH 2.17 uIU/mL Normal 0.49-4.67 [facility] Comment on above: Performed By: #### C VIRGILIO, MARIO, 11330-5, 34316-7, 38424-2 #### [facility] ([id number]) [address] [place] [address]270 Thyroid profile includes TSH FT4on 10-17-2023 Free T4 [Mass/Vol] 1.19 ng/dL 0.61 - 1.60 ng/dL [facility] TSH Qn 2.17 m[IU]/L [facility] US.doppler Lower extremity v ein - [...] superficial vein thrombosis of the lower extremities. [facility] US.doppler Lower extremity v ein - bilateralOrdered By: Jong Haddad on 10-17-2023 [facility] Work Phone: Urine Volume and Timeon 09-23 Specimen volume Unsp time (U) 4400 mL [facility] Urine output 24 hour 24 h [facility] 24 HR URINE CREATININEon URINE CREATININE 1.38 g/24h Normal 0.80-1.80 [facility] Comment on above: Performed By: #### U CR, UPRO ####[facility] ([id number])[address]130 [facility] [address] [place] [address] 24 HR URINE TOTAL PROTEINon 10-16-2023 URINE TOTAL PROTEIN 6380 mg/24h High 0-150 [facility] Comment on above: Performed By: #### U CR, UPRO ####[facility] ([id number])2130 [facility], [address] [place] [address] SAUL Screen w/ Reflexon 10-15 Nuclear Ab IA Ql (S) Negative Negativ e^N egative [facility] Comment on above: Testing performed using multiplex flow immunoassay. Eleven different antigens associated with systemic autoimmune diseases (dsDNA,Sm,Sm/GARMENT PARTS CUTTER MACHINE,GARMENT PARTS CUTTER MACHINE,Chromatin, SSA,SSB,Yoly-1,Scl70,Ribo P,Centromere B) are included in this screening test. CBC AND AUTO DIFFon 10-16-19 24 ABSOLUTE BASOPHIL 0.0 X10E9/L Normal 0.0-0.2 [facility] Comment on above: Performed By: #### C BCA, BMP, 22852-8, 62942-8, 62270-8 #### [facility] ([id number]) [address] [place] [address], [place] [address] ABSOLUTE NEUTROPHIL 4.9 X10E9/L Normal 1.5-6.6 [facility] Comment on above: Performed By: #### C BCA, BMP, 40930-3, 39503-8, 65944-0 #### [facility] ([id number]) [address] [place] [address] 06850 Basophils/100 WBC (Bld) 0.6 % Normal [facility] Comment on above: Performed By: #### C BCA, BMP, , 01719-9, 00850-3 #### [facility] ([id number]) [address] [place] [address] 80249 Eosinophils (Bld) [#/Vol] 0.3 10*3/uL Normal 0.0-0.4 [facility] Comment on above: Performed By: #### C BCA, BMP, , 08870-3, 16057-7 #### [facility] ([id number]) [address] [place] [address] 07789 Eosinophils/100 WBC (Bld) 4.2 % Normal [facility] Comment on above: Performed By: #### C BCA, BMP, , 85053-1, 76854-4 #### [facility] ([id number]) [address] [place] [address] 48828 Erythrocyte distribution width (RBC) [Ratio] 14.8 % Normal 11.5-15.0 [facility] Comment on above: Performed By: #### C BCA, BMP, , 88491-6, 12408-4 #### [facility] ([id number]) [address] [place] [address] 40909 Hematocrit (Bld) [Volume fraction] 28.5 % Low 35-47 [facility] Comment on above: Performed By: #### C BCA, BMP, 01006-1, 89200-8, 41100-0 #### [facility] ([id number]) [address] [place] [address] 51063 Hemoglobin (Bld) [Mass/Vol] 9.5 g/dL Low 11.7-15.5 [facility] Comment on above: Performed By: #### C VIRGILIO, MARIO, , 13490-8, 18651-1 #### [facility] ([id number]) [address] [place] [address] 05280 Lymphocytes (Bld) [#/Vol] 2.1 10*3/uL Normal 1.0-3.5 [facility] Comment on above: Performed By: #### C VIRGILIO, MARIO, , 74038-4, 25247-9 #### [facility] ([id number]) [address] [place] [address] 72104 Lymphocytes/100 WBC (Bld) 26.6 % Normal [facility] Comment on above: Performed By: #### C VIRGILIO, MARIO, , 15793-6, 87662-8 #### [facility] ([id number]) [address] [place] [address] 23700 MCH (RBC) [Entitic mass] 27.7 pg Normal 27-34 [facility] Comment on above: Performed By: #### Shahla POOLE, MARIO, , 22040-9, 52837-4 #### [facility] ([id number]) [address] [place] [address] 61640 MCHC (RBC) [Mass/Vol] 33.6 g/dL Normal 32-36 Pro [facility] Comment on above: Performed By: #### C VIRGILIO, BMP, , 99405-5, 42371-1 #### [facility] ([id number]) [address] [place] [address] 25431 MCV (RBC) [Entitic vol] 83 fL Normal 80-100 P [facility] Comment on above: Performed By: #### C BCA, BMP, 74702-7, 35090-4, 01553-8 #### [facility] ([id number]) [address] [place] [address] 29037 Monocytes (Bld) [#/Vol] 0.7 10*3/uL Normal 0-0.9 [facility] Comment on above: Performed By: #### C BCA, BMP, 91293-8, 05398-9, 59322-5 #### [facility] ([id number]) [address] [place] [address] 51858 Monocytes/100 WBC (Bld) 8.2 % Normal P [facility] Comment on above: Performed By: #### C BCA, BMP, 47721-5, 73790-2, 23841-1 #### [facility] ([id number]) [address] [place] [address] 55197 Neutrophils/100 WBC (Bld) 60.4 % Normal [facility] Comment on above: Performed By: #### C BCA, BMP, 28220-5, 30897-8, 05023-6 #### [facility] ([id number]) [address] [place] [address] 40778 Platelet mean volume (Bld) [Entitic vol] 8.9 fL Normal 7-12 [facility] Comment on above: Performed By: #### C BCA, BMP, 69447-3, 99695-5, 99358-6 #### [facility] ([id number]) [address] [place] [address] 93704 Platelets (Bld) [#/Vol] 252 10*3/uL Normal 150-450 [facility] Comment on above: Performed By: #### C BCA, BMP, 91896-7, 82246-1, 44061-9 #### [facility] ([id number]) [address] [place] [address] RBC COUNT 3.45 X10E12/L Low 3.80-5.20 [facility] Comment on above: Performed By: #### C MARIO POOLE, 93161-8, 06210-5, 36938-4 #### [facility] ([id number]) [address] [place] [address] 26918 WBC (Bld) [#/Vol] 8.0 10*3/uL Normal 4.0-11.0 [facility] Comment on above: Performed By: #### C MARIO POOLE, 93148-0, 32368-1, 98396-0 #### [facility] ([id number]) [address] [place] [address] 44849 CBC auto differentialon 09-23 Basophils (Bld) [#/Vol] 0.0 10*3/uL [facility] Basophils/100 WBC (Bld) 0.6 % [facility] Eosinophils (Bld) [#/Vol] 0.3 10*3/uL [facility] Eosinophils/100 WBC (Bld) 4.2 % [facility] Erythrocyte distribution width (RBC) [Ratio] 14.8 % 11.5 - 15.0 % [facility] Hematocrit (Bld) [Volume fraction] 28.5 % Low 35 - 47 % [facility] Hemoglobin (Bld) [Mass/Vol] 9.5 g/dL Low 11.7 - 15.5 g/dL [facility] Interpretation and review of laboratory results Abnormal [facility] Lymphocytes (Bld) [#/Vol] 2.1 10*3/uL [facility] Lymphocytes/100 WBC (Bld) 26.6 % [facility] MCH (RBC) [Entitic mass] 27.7 pg 27 - 34 pg [facility] MCHC (RBC) [Mass/Vol] 33.6 g/dL 32 - 3 6 g/dL [facility] MCV (RBC) [Entitic vol] 83 fL 80 - 100 fL [facility] Monocytes (Bld) [#/Vol] 0.7 10*3/uL [facility] Monocytes/100 WBC (Bld) 8.2 % P [facility] Neutrophils (Bld) [#/Vol] 4.9 10*3/uL [facility] Neutrophils/100 WBC (Bld) 60.4 % [facility] Platelet mean volume (Bld) [Entitic vol] 8.9 fL 7 - 12 fL [facility] Platelets (Bld) [#/Vol] 252 10*3/uL [facility] RBC (Bld) [#/Vol] 3.45 10*6/uL Low [facility] WBC corrected for nucl RBC Auto (Bld) [#/Vol] 8.0 [facility] COMPREHENSIVE METABOLIC PANE Phu 10-16-2023 Albumin [Mass/Vol] 2.7 g/dL Low 3.2-5.3 [facility] Comment on above: Performed By: #### C BCA, BMP, 47275-7, 98518-0, 19899-2 #### [facility] ([id number]) [address] [place] [address] 33868 ALP [Catalytic activity/Vol] 55 U/L Normal 39-130 [facility] Comment on above: Performed By: #### C BCA, BMP, 18913-4, 57200-0, 37976-6 #### [facility] ([id number]) [address] [place] [address] 63770 ALT [Catalytic activity/Vol] 9 U/L Normal 0-31 [facility] Comment on above: Performed By: #### C BCA, BMP, 58298-0, 34741-7, 66285-2 #### [facility] ([id number]) [address] [place] [address] 22211 Anion gap [Moles/Vol] 8 mmol/L Normal 5-15 [facility] Comment on above: Performed By: #### C BCA, BMP, 36033-3, 03268-1, 44208-3 #### [facility] ([id number]) [address] [place] [address] 61500 AST [Catalytic activity/Vol] 13 U/L Normal 0-41 [facility] Comment on above: Performed By: #### C BCA, BMP, 81778-1, 55468-8, 00089-6 #### [facility] ([id number]) [address] [place] [address] 29395 Bilirubin [Mass/Vol] 0.4 mg/dL Normal 0.3-1.2 [facility] Comment on above: Performed By: #### C BCA, BMP, , 93969-2, 31367-2 #### [facility] ([id number]) [address] [place] [address] 38029 Calcium [Mass/Vol] 8.4 mg/dL Low 8.5-10.5 [facility] Comment on above: Performed By: #### C BCA, BMP, , 31894-6, 33782-3 #### [facility] ([id number]) [address] [place] [address] 66967 Chloride [Moles/Vol] 101 mmol/L Normal 98-109 [facility] Comment on above: Performed By: #### C BCA, BMP, , 40104-8, 28100-1 #### [facility] ([id number]) [address] [place] [address] 28722 CO2 [Moles/Vol] 28 mmol/L Normal 22-32 [facility] Comment on above: Performed By: #### C BCA, BMP, , 08790-8, 68134-6 #### [facility] ([id number]) [address] [place] [address] 06906 Creatinine [Mass/Vol] 2.63 mg/dL High 0.40-1.00 [facility] Comment on above: Result Comment: METH OD TRACEABLE TO IDMS STANDARD Performed By: #### C VIRGILIO, MARIO, , 75358-4, 97871-6 #### [facility] ([id number]) [address] [place] [address] 53124 GFR/1.73 sq M.predicted among non-blacks MDRD (S/P/Bld) [Vol rate/Area] 20 mL/min/{1.73_m2} Low >59 [facility] Comment on above: Result Comment: Reported eGFR is based on the CKD-EPI 2020 equation that does not use a race coefficient. Performed By: #### C VIRGILIO, MARIO, , 50675-1, 39976-4 #### [facility] ([id number]) [address] [place] [address] 10156 Glucose [Mass/Vol] 107 mg/dL High 65-99 [facility] Comment on above: Performed By: #### C VIRGILIO, MARIO, , 12950-2, 57524-4 #### [facility] ([id number]) [address] [place] [address] 02984 Potassium [Moles/Vol] 3.2 mmol/L Low 3.5-5.0 [facility] Comment on above: Performed By: #### C VIRGILIO, MARIO, , 36035-9, 62196-4 #### [facility] ([id number]) [address] [place] [address] 90328 Protein [Mass/Vol] 5.4 g/dL Low 6.0-8.0 [facility] Comment on above: Performed By: #### C VIRGILIO, BMP, , 66852-0, 35486-4 #### [facility] ([id number]) [address] [place] [address] 31261 Sodium [Moles/Vol] 137 mmol/L Normal 134-146 [facility] Comment on above: Performed By: #### C BCA, BMP, 05128-8, 22717-7, 40385-8 #### [facility] ([id number]) [address] [place] [address] 76204 Urea nitrogen [Mass/Vol] 23 mg/dL Normal 5-23 [facility] Comment on above: Performed By: #### C BCA, BMP, 81858-6, 37007-6, 50902-1 #### [facility] ([id number]) [address] [place] [address] 59343 Calcium.ionized (Bld) [Moles /Vol]on 10-16-2023 [facility] [employer] PORTABLE ICA 4.6 mg/dL Normal 4.5-5.3 [facility] Comment on above: Performed By: #### C BCA, BMP, 60562-7, 40513-9, 10608-5 #### [facility] ([id number]) [address] [place] [address] 64924 Cardiac echo study Procedure Ordered By: Cole Hannah on 10-16-2023 Aortic root 3.30 cm [employer] Work Phone: AV mean gradient 7.00 mmHg [employer] [facility] Work Phone: AV peak gradient 13.99 mmHg [employer] [facility] Work Phone: AV peak gerber 187.00 cm/s [employer] Work Phone: AV valve area 2.07 cm2 [employer] Work Phone: AV Velocity Ratio 0.66 [facility] Work Phone: AV VTI 38.50 cm [employer] Work Phone: E wave deceleration time 232.00 msec [employer] Work Phone: E/A ratio 1.62 [employer] Work Phone: Echo EF Estimated 69 % [facility] Work Phone: EF 69 % [facility] Work Phone: Energy loss index 1.18 [facility] Work Phone: FS 38 % 28 - 44 % [facility] Work Phone: Interventricular Septum Diastolic Thickness by 2D 10 cm [facility] Work Phone: IVS 1.00 cm 0.6 - 1.1 cm [facility] Work Phone: LA size 3.70 cm [employer] Work Phone: LA volume 71.00 cm3 [employer] Work Phone: LA Volume Index 28.1 mL/m2 [facility] Work Phone: Left Ventricle Mass [id number] g [employer] Work Phone: LV Diastolic Volume 101.00 mL [facility] [employer] Work Phone: LV ESV A2C 61.50 mL [employer] Work Phone: LV ESV A4C 81.70 mL [employer] Work Phone: LV RWT 2D 40.00 [employer] Work Phone: LV Systolic Volume 31.70 mL [facility] Work Phone: LVIDd 5.00 cm 7.85 - 10.91 cm [facility] Work Phone: LVIDs 3.10 cm 4.53 - 6.87 cm [employer] Work Phone: LVOT diameter 2.00 cm [employer] Work Phone: LVOT peak gerber 1.16 m/s [employer] Work Phone: LVOT peak VTI 25.40 cm [employer] Work Phone: LVOT stroke volume 79.80 ml [facility] Work Phone: MV Peak A Gerber 83.70 cm/s [facility] Work Phone: MV Peak E Gerber 136.00 cm/s [facility] Work Phone: MV pressure 1/2 time 68.00 ms [facility] [employer] Work Phone: MV TDI E' (medial) 4.68 cm/s [facility] Work Phone: MV valve area p 1/2 method 3.24 cm2 [facility] Work Phone: PW 1.00 cm 0.6 - 1.1 cm [employer] Work Phone: RA 2D Volume 16.8 mL/m2 [employer] Work Phone: RA area 15.3 cm2 [employer] Work Phone: RV diastolic dimension (basal) 39.0 mm [employer] Work Phone: RVID d 3.9 cm [employer] Work Phone: TAPSE 2.09 cm [employer] Work Phone: TASV 11.5 cm/s [facility] Work Phone: TDI 6.64 cm/s [employer] Work Phone: Valve area - Index 0.8 [facility] Work Phone: ZLVIDD -6.16 [facility] Work Phone: ZLVIDS -4.64 [employer] Work Phone: [facility] Work Phone: Cardiac echo study Procedure on [...] Mitral valve structure is normal. There is qkkph-[id number]-djow regurgitation with a centrally directed jet. There [...] is normal. [facility] Radiology Study observation (narrative) [facility] Clinical Pathologyon 024 Clinical Pathology Normal [facility] Comment on above: Result Comment: [facility] [address] [place] [address] Clinical Pathology Report Patient Name:DANIELLE MONTANA:1965 (Age: 58)Gender:FTaken:4Reported:4Physician(s):Alhaji Flores MD ([phone])Copy To: Rec. 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 No monoclonal protein identified. Report Electronically Signed Out 10/18/2023nicci Gomez MD [facility] [address] [place] [address], License number: [id number]. Clinical History D17.9, I16.0, E87.6. URINE PROTEIN ELECTROPHORESIS SAMPLE NUMBER: [id number] RELATIVE ELECTROPHORETIC CONCENTRATIONS (%) ? 100.0 Urine Protein 1410 mg/L (Electrophoretic gels and densitometric tracings on file in lab.) Specimen(s) Received Urine Protein Electrophoresis Fee Codes(s): 1; 81050-21 Comprehensive metabolic pane [facility] 10-16-2023 Albumin [Mass/Vol] 2.7 g/dL Low 3.2 - 5.3 g/dL [facility] ALP [Catalytic activity/Vol] 55 U/L 39 - 130 U/L [facility] ALT No additional P-5'-P [Catalytic activity/Vol] 9 U/L 0 - 31 U/L [facility] Anion gap [Moles/Vol] 8 mmol/L 5 - 15 mmol/L [facility] AST [Catalytic activity/Vol] 13 U/L 0 - 41 U/L [facility] Bilirubin [Mass/Vol] 0.4 mg/dL 0.3 - 1 .2 mg/dL [facility] Calcium [Mass/Vol] 8.4 mg/dL Low 8.5 - 10. 5 mg/dL [facility] Chloride [Moles/Vol] 101 mmol/L 98 - 10 9 mmol/L [facility] CO2 [Moles/Vol] 28 mmol/L 22 - 32 mmol/L [facility] Creatinine [Mass/Vol] 2.63 mg/dL High 0.40 - 1.00 mg/dL [facility] Comment on above: METHOD TRACEABLE TO [facility] STANDARD eGFR (CKD-EPI)non-race dependent 20 Low - PINF [facility] Comment on above: Reported eGFR is based on the CKD-EPI 2021 equation that does not use a race coefficient. Glucose [Mass/Vol] 107 mg/dL High 65 - 99 mg/dL [facility] Interpretation and review of laboratory results Abnormal [facility] Potassium [Moles/Vol] 3.2 mmol/L Low 3.5 - 5.0 mmol/L [facility] Protein [Mass/Vol] 5.4 g/dL Low 6.0 - 8.0 g/dL [facility] Sodium [Moles/Vol] 137 mmol/L 134 - 146 mmol/L [facility] Urea nitrogen [Mass/Vol] 23 mg/dL 5 - 23 mg/dL [facility] D-Dimeron 10-16-2023 Fibrin D-dimer DDU (PPP) [Mass/Vol] 499 High NINF [facility] Comment on above: Results >=255ng/mL [...] Interpretation and review of laboratory results Abnormal [facility] D DIMER 499 ng/mL DDU High <255 [facility] Comment on above: Result [...] D-Dimer level. Performed By: #### C VIRGILIO, [facility], 70053-0, 25210-1, 73666-7 #### [facility] ([id number]) [address] [place] [address], [place] [address] Free light chainson 10-16-19 Immunoglobulin light chains.kappa.free (S) [Mass/Vol] 3.52 mg/dL High 0.33 - 1.94 mg/dL [facility] Immunoglobulin light chains.kappa.free/Immuno globulin light chains.lambda (S) [Mass ratio] 0.94 0.26 - 1.65 [facility] Immunoglobulin light chains.lambda [Mass/Vol] 3.75 mg/dL High 0.57 - 2.63 mg/dL [facility] Interpretation and review of laboratory results Abnormal [facility] HGB A1C (GLYCO-HGB)on 2023 Glucose [Mass/Vol] 111 mg/dL Normal [facility] Comment on above: Performed By: #### MARIO Gale BCA, 71112-3, 70956-9, 11642-4 #### [facility] ([id number]) [address] [place] [address] 61529 HbA1c (Bld) [Mass fraction] 5.5 % Normal 4.4-5.6 [facility] Comment on above: Result Comment: NOTE ADA Guidelines Result HgbA1c Normal : less than 5.7 % Prediabetes : 5.7 % to 6.4 % Diabetes : > 6.4 % Use with caution in patients with abnormal hemoglobin variants as the half-life of red blood cells and in vivo glycation rates are affected. Performed By: #### MARIO Gale BCA, 34280-0, 65522-1, 71608-5 #### [facility] ([id number]) [address] [place] [address] 22782 Hemoglobin A1con 10-16-2023 Average glucose Estimated from glycated hemoglobin (Bld) [Mass/Vol] 111 mg/dL [facility] HbA1c (Bld) [Mass fraction] 5.5 % 4.4 - 5.6 % [facility] Comment on above: NOTE ADA Guidelines Result HgbA1c Normal : less than 5.7 % Prediabetes : 5.7 % to 6.4 % Diabetes : > 6.4 % Use with caution in patients with abnormal hemoglobin variants as the half-life of red blood cells and in vivo glycation rates are affected. [facility] MAGNESIUMon 10-16-2023 Magnesium [Mass/Vol] 2.1 mg/dL Normal 1.8-2.6 [facility] Comment on above: Performed By: #### C MARIO POOLE, , 42968-4, 47323-7 #### [facility] ([id number]) [address] [place] [address] 42615 MICROALBUMIN - ALBUMIN:CREAT ININE URINE RATIOon 10-16-2023 ALB/CREAT RATIO 3392.0 mg/g creat High 0.0-30.0 Pr [facility] Comment on above: Performed By: #### C MARIO POOLE, , 57268-5, 93503-0 #### [facility] ([id number]) [address] [place] [address] 98076 Albumin DL <= 20 mg/L (U) [Mass/Vol] 88.6 mg/dL High 0.0-1.9 [facility] Comment on above: Performed By: #### MARIO Gale BCA, , 89207-3, 72419-2 #### [facility] ([id number]) [address] [place] [address] 84574 URINE CREAT 26.12 mg/dL Normal [facility] Comment on above: Performed By: #### MARIO Gale BCA, , 11323-1, 73809-4 #### [facility] ([id number]) [address] [place] [address] 10942 Magnesiumon 10-16-2023 Magnesium [Mass/Vol] 2.1 mg/dL 1.8 - 2 .6 mg/dL [facility] Microalbumin - Albumin: Crea tinine Urine Ratioon 10-16-2023 Albumin DL <= 20 mg/L (U) [Mass/Vol] 88.6 mg/dL High 0.0 - 1.9 mg/dL [facility] Albumin/Creatinine DL <= 1.0 mg/L (U) [Ratio] 3392.0 High [facility] Creatinine (U) [Mass/Vol] 26.12 mg/dL [facility] Interpretation and review of laboratory results Abnormal [facility] No Panel Informationon 10-15 [facility] Nuclear Ab IA Ql (S)on 10-15 [facility] PHOSPHORUSon 10-16-2023 Phosphate [Mass/Vol] 4.3 mg/dL Normal 2.4-4.9 [facility] Comment on above: Performed By: #### C MARIO POOLE, 14702-1, 65035-9, 39730-2 #### [facility] ([id number]) [address] [place] [address] 21173 POCT Ionized Calciumon 10-15 Calcium.ionized (Bld) [Moles/Vol] 4.6 mg/dL 4.5 - 5.3 mg/dL [facility] POTASSIUMon 10-16-2023 Potassium [Moles/Vol] 4.8 mmol/L Normal 3.5-5.0 [facility] Comment on above: Result Comment: SPEC IMEN HEMOLYZED, RESULTS INCREASED Performed By: #### C MARIO POOLE, 70479-6, 53574-8, 17538-5 #### [facility] ([id number]) [address] [place] [address] 49249 PROTEIN CREAT RATIOon 2023 RANDOM URINE PROTEIN 1270 mg/L High <120 [facility] Comment on above: Performed By: #### C MARIO POOLE, 05616-9, 35079-7, 68942-3 #### [facility] ([id number]) [address] [place] [address] 42487 U/PRO/MAIL MESSENGER RATIO CALC 4.72 High <0.2 [facility] Comment on above: Result Comment: Neph rotic Syndrome is associated with ratios >3.5 Performed By: #### C BCA, BMP, 47145-0, 74400-9, 37505-0 #### [facility] ([id number]) [address] [place] [address] URINE CREATININE,RDM 26.92 mg/dL Normal Pro [facility] Comment on above: Performed By: #### C BCA, BMP, 46400-5, 31665-4, 02402-0 #### [facility] ([id number]) [address] [facility], [place] [address] Phosphate [Mass/Vol]on 10-15 [facility] Phosphoruson 10-16-2023 Phosphate [Mass/Vol] 4.3 mg/dL 2.4 - 4 .9 mg/dL [facility] Potassiumon 10-16-2023 Potassium [Moles/Vol] 4.8 mmol/L 3.5 - 5.0 mmol/L [facility] Comment on above: SPECIMEN HEMOLYZED, RESULTS INCREASED Potassium [Moles/Vol]on 09-23 [facility] Protein creat ratioon 2023 Creatinine (U) [Mass/Vol] 26.92 mg/dL [facility] Interpretation and review of laboratory results Abnormal [facility] Protein (U) [Mass/Vol] 1270 mg/L High NINF - 120 mg/L [facility] Protein/Creatinine (U) [Ratio] 4.72 High NINF - 0.2 [facility] Comment on above: Nephrotic Syndrome i s associated with ratios >3.5 [facility] Protein electrophoresis, ser umon 10-16-2023 Albumin [Mass/Vol] 2.5 g/dL Low 3.4 - 5.3 g/dL [facility] Alpha 1 globulin Elph [Mass/Vol] 0.4 g/dL 0.1 - 0.4 g/dL [facility] Alpha 2 globulin Elph [Mass/Vol] 0.9 g/dL 0.4 - 1.1 g/dL [facility] Beta globulin Elph [Mass/Vol] 0.5 g/dL 0.5 - 1.2 g/dL [facility] Gamma globulin Elph [Mass/Vol] 0.4 g/dL Low 0.5 - 1.6 g/dL [facility] Interpretation and review of laboratory results Abnormal [facility] Pathologist interpretation (Bld) [Interp] Unremarkable protein distribution, no monoclonal bands. [facility] Protein [Mass/Vol] 4.7 g/dL Low 6.0 - 8.0 g/dL [facility] URINALYSISon 10-16-2023 Bilirubin Ql (U) Negative Normal NEG [facility] Comment on above: Performed By: #### C VIRGILIO, BMP, 70492-9, 73234-1, 07981-3 #### [facility] ([id number]) [address] [place] [address] 28185 BLOOD/HGB Large Abnormal NEG [facility] Comment on above: Performed By: #### Shahla POOLE, BMP, 20470-5, 00040-6, 97566-6 #### [facility] ([id number]) [address] [place] [address] 50872 Color (U) YELLOW Normal YELLOW [facility] Comment on above: Performed By: #### Shahla BCA, BMP, 88995-5, 39127-0, 99695-4 #### [facility] ([id number]) [address] [place] [address] 91931 Glucose Ql (U) Negative Normal NEG [facility] Comment on above: Performed By: #### Shahla BCA, BMP, 41888-8, 11524-7, 23834-7 #### [facility] ([id number]) [address] [place] [address] 48445 Ketones Ql (U) Negative Normal NEG [facility] Comment on above: Performed By: #### Shahla BCA, BMP, 24294-4, 13953-8, 21880-8 #### [facility] ([id number]) [address] [place] [address] Leukocyte esterase Test strip Ql (U) Negative Normal NEG [facility] Comment on above: Performed By: #### C VIRGILIO, BMP, 96144-1, 10960-9, 93066-8 #### [facility] ([id number]) [address] [place] [address] 08326 Nitrite Ql (U) Negative Normal NEG [facility] Comment on above: Performed By: #### C VIRGILIO, BMP, 01606-6, 63017-9, 18059-3 #### [facility] ([id number]) [address] [place] [address] 02864 pH (U) 6.0 [pH] Normal 5.0-8.5 [facility] Comment on above: Performed By: #### C VIRGILIO, BMP, 15505-3, 28978-4, 42118-0 #### [facility] ([id number]) [address] [place] [address] 25196 Protein Ql (U) 100 mg/dL Abnormal NEG [facility] Comment on above: Performed By: #### C VIRGILIO, BMP, 50089-5, 23102-5, 25006-8 #### [facility] ([id number]) [address] [place] [address] 83120 R.B.CELLS 80 /hpf High 0-5 [facility] Comment on above: Performed By: #### C VIRGILIO, BMP, 46442-3, 46138-0, 91868-9 #### [facility] ([id number]) [address] [place] [address] 06194 Specific gravity (U) [Rel density] 1.015 Normal 1.003-1.[address] [place] [address] Comment on above: Performed By: #### C VIRGILIO, BMP, 26592-9, 73921-9, 33595-5 #### [facility] ([id number]) [address] [place] [address] 18875 SQUAMOUS EPITHELIUM 2 /hpf Normal 0-5 [facility] Comment on above: Performed By: #### C VIRGILIO, MARIO, , 50188-9, 82248-3 #### [facility] ([id number]) [address] [place] [address] 63013 TURBIDITY CLEAR Normal CLEAR [facility] Comment on above: Performed By: #### C VIRGILIO, BMP, , 46786-2, 25766-9 #### [facility] ([id number]) [address] [place] [address] 65895 Urobilinogen Qn (U) 0.2 {Micaela'U}/dL Normal <1.1 [facility] Comment on above: Performed By: #### C VIRGILIO, MARIO, , 29185-3, 75635-0 #### [facility] ([id number]) [address] [place] [address] 34319 W.B.CELLS 5 /hpf Normal 0-5 [facility] Comment on above: Performed By: #### C MARIO POOLE, , 73001-2, 48492-7 #### [facility] ([id number]) [address] [place] [address] 03183 URINE PROTEIN ELECTROPHORESI Son 10-16-2023 UPREL INTERP SEE SEPARATE REPORT Normal [facility] URINE VOLUME AND TIMEon 09-23 TIME 24 h Normal [facility] Comment on above: Performed By: #### U CR, UPRO ####[facility] ([id number])0 [facility] [address], [place] [address] TOTAL VOLUME 4400 mL Normal [facility] Comment on above: Performed By: #### U CR, UPRO ####[facility] ([id number]) [facility], [address] [place] [address] 31292 US RETROPERITONEAL COMPLETEo n 10-16-2023 US RETROPERITONEAL [...] Maksim Unger MD on 10/16/2023 9:42 AM [facility] US Retroperitoneumon 024 US RETROPERITONEAL [...] Maksim Unger MD on 10/16/2023 9:42 AM [facility] - 10[facility]16/2023 US RETROPERITONEAL [...] Maksim Unger MD on 10/16/2023 9:42 AM [facility] Radiology Study observation (narrative) [facility] US RetroperitoneumOrdered By : Maksim Unger on 10-16-2023 [facility] Work Phone: US.doppler Lower extremity v ein - bilateralon 10-16-2023 Radiology Study observation (narrative) [facility] Urinalysison 10-16-2023 Bilirubin Ql (U) Negative Negative^N egative [facility] Color (U) YELLOW YELLOW^YEL LOW [facility] Epithelial cells Auto (Urine sed) [#/Area] 2 [facility] Glucose (U) [Mass/Vol] Negative Negat marva^N egative mg/dL [facility] Hemoglobin Auto test strip Ql (U) Large Abnormal Negative^N egative [facility] Interpretation and review of laboratory results Abnormal [facility] Ketones (U) [Mass/Vol] Negative Negat marva^N egative mg/dL [facility] Leukocyte esterase Auto test strip Ql (U) Negative Negative^N egative [facility] Nitrite Auto test strip Ql (U) Negative Negative^N egative [facility] pH (U) 6.0 [pH] 5.0 - 8.5 [facility] Protein (U) [Mass/Vol] 100 mg/dL Abnormal Negat marva^N egative [facility] RBC Auto (Urine sed) [#/Area] 80 High [facility] Specific gravity Refractometry automated (U) [Rel density] 1.015 1.003 - 1.035 [facility] Turbidity Ql (U) CLEAR CLEAR^NUNU R [facility] Urobilinogen Qn (U) 0.[address] [facility] WBC Auto (Urine sed) [#/Area] 5 [facility] Basement membrane IgG Qn (S) on 10-15-2023 Glomerular Base Memb IgG <0.2 Normal <1. 0 (Negative) [facility] Comment on above: Result Comment: NOTE Test Performed by: [facility] [address] [place] [address] Claims Representative: Ledy Son Ph.D.; CLIA# [id number] Performed By: #### C VIRGILIO BMP, 69209-6, 23064-6, 90762-3 #### [facility] ([id number]) [address] [place] [address] 76513 CBC AND AUTO DIFFon 10-15-19 24 ABSOLUTE BASOPHIL 0.1 X10E9/L Normal 0.0-0.2 [facility] Comment on above: Performed By: #### C VIRGILIO CMP, #### [facility] ([id number]) [address] [place] [address] 33529 ABSOLUTE NEUTROPHIL 6.8 X10E9/L High 1.5-6.6 [facility] Comment on above: Performed By: #### C VIRGILIO CMP, 26666-4 #### [facility] ([id number]) [address] [place] [address] 05613 Basophils/100 WBC (Bld) 0.7 % Normal P [facility] Comment on above: Performed By: #### Shahla POOLE CMP, 62625-0 #### [facility] ([id number]) [address] [place] [address] 07930 Eosinophils (Bld) [#/Vol] 0.3 10*3/uL Normal 0.0-0.4 [facility] Comment on above: Performed By: #### Shahla POOLE CMP, 57764-8 #### [facility] ([id number]) [address] [place] [address] 17174 Eosinophils/100 WBC (Bld) 3.3 % Normal [facility] Comment on above: Performed By: #### Shahla POOLE CMP, 62027-1 #### [facility] ([id number]) [address] [place] [address] 78775 Erythrocyte distribution width (RBC) [Ratio] 14.6 % Normal 11.5-15.0 [facility] Comment on above: Performed By: #### Shahla POOLE CMP, #### [facility] ([id number]) [address] [place] [address] 74702 Hematocrit (Bld) [Volume fraction] 30.1 % Low 35-47 [facility] Comment on above: Performed By: #### Shahla POOLE CMP, #### [facility] ([id number]) [address] [place] [address] 66769 Hemoglobin (Bld) [Mass/Vol] 10.0 g/dL Low 11.7-15.5 [facility] Comment on above: Performed By: #### Shahla POOLE CMP, #### [facility] ([id number]) [address] [place] [address] 18393 Lymphocytes (Bld) [#/Vol] 2.4 10*3/uL Normal 1.0-3.5 [facility] Comment on above: Performed By: #### Shahla POOLE CMP, #### [facility] ([id number]) [address] [place] [address] 24627 Lymphocytes/100 WBC (Bld) 23.7 % Normal [facility] Comment on above: Performed By: #### Shahla POOLE CMP, #### [facility] ([id number]) [address] [place] [address] 94702 MCH (RBC) [Entitic mass] 27.7 pg Normal 27-34 [facility] Comment on above: Performed By: #### Shahla POOLE CMP, #### [facility] ([id number]) [address] [place] [address] 12246 MCHC (RBC) [Mass/Vol] 33.1 g/dL Normal 32-36 [facility] Comment on above: Performed By: #### Shahla POOLE CMP, #### [facility] ([id number]) [address] [place] [address] 47789 MCV (RBC) [Entitic vol] 84 fL Normal 80-100 [facility] Comment on above: Performed By: #### Shahla POOLE CMP, #### [facility] ([id number]) [address] [place] [address] 46782 Monocytes (Bld) [#/Vol] 0.6 10*3/uL Normal 0-0.9 [facility] Comment on above: Performed By: #### Shahla POOLE CMP, #### [facility] ([id number]) [address] [place] [address] 88965 Monocytes/100 WBC (Bld) 5.5 % Normal [facility] Comment on above: Performed By: #### Shahla POOLE CMP, 46341-0 #### [facility] ([id number]) [address] [place] [address] 44984 Neutrophils/100 WBC (Bld) 66.8 % Normal [facility] Comment on above: Performed By: #### Shahla POOLE CMP, 08762-9 #### [facility] ([id number]) [address] [place] [address] 77080 Platelet mean volume (Bld) [Entitic vol] 9.0 fL Normal 7-12 [facility] Comment on above: Performed By: #### Shahla POOLE [facility], 48847-6 #### [facility] ([id number]) [address] [place] [address] 67393 Platelets (Bld) [#/Vol] 312 10*3/uL Normal 150-450 [facility] Comment on above: Performed By: #### Shahla POOLE [facility], 72550-0 #### [facility] ([id number]) [address] [place] [address] 65024 RBC COUNT 3.59 X10E12/L Low 3.80-5.20 [facility] Comment on above: Performed By: #### Shahla POOLE [facility], 45695-0 #### [facility] ([id number]) [address] [place] [address] 49255 WBC (Bld) [#/Vol] 10.2 10*3/uL Normal 4.0-11.0 [facility] Comment on above: Performed By: #### Shahla POOLE CMP, 39503-9 #### [facility] ([id number]) [address] [place] [address] 86941 CBC auto differentialon 09-23 Basophils (Bld) [#/Vol] 0.1 10*3/uL [facility] Basophils/100 WBC (Bld) 0.7 % [facility] Eosinophils (Bld) [#/Vol] 0.3 10*3/uL [facility] Eosinophils/100 WBC (Bld) 3.3 % [facility] Erythrocyte distribution width (RBC) [Ratio] 14.6 % 11.5 - 15.0 % [facility] Hematocrit (Bld) [Volume fraction] 30.1 % Low 35 - 47 % [facility] Hemoglobin (Bld) [Mass/Vol] 10.0 g/dL Low 11.7 - 15.5 g/dL [facility] Interpretation and review of laboratory results Abnormal [facility] Lymphocytes (Bld) [#/Vol] 2.4 10*3/uL [facility] Lymphocytes/100 WBC (Bld) 23.7 % [facility] MCH (RBC) [Entitic mass] 27.7 pg 27 - 34 pg [facility] MCHC (RBC) [Mass/Vol] 33.1 g/dL 32 - 3 6 g/dL [facility] MCV (RBC) [Entitic vol] 84 fL 80 - 100 fL [facility] Monocytes (Bld) [#/Vol] 0.6 10*3/uL [facility] Monocytes/100 WBC (Bld) 5.5 % P [facility] Neutrophils (Bld) [#/Vol] 6.8 10*3/uL High [facility] Neutrophils/100 WBC (Bld) 66.8 % [facility] Platelet mean volume (Bld) [Entitic vol] 9.0 fL 7 - 12 fL [facility] Platelets (Bld) [#/Vol] 312 10*3/uL [facility] RBC (Bld) [#/Vol] 3.59 10*6/uL Low [facility] WBC corrected for nucl RBC Auto (Bld) [#/Vol] 10.2 [facility] CK Totalon 10-15-2023 CK [Catalytic activity/Vol] 82 U/L 24 - 170 U/L [facility] CK [Catalytic activity/Vol]o n 10-15-2023 [facility] CPK 82 U/L Normal 24-170 [facility] Comment on above: Performed By: #### C VIRGILIO, MARIO, 07065-5, 84968-2, 82343-5 #### [facility] ([id number]) [address] [place] [address], [place] [address] COMPLEMENT PROFILEon 024 COMPLEMENT C3 113 mg/dL Normal 86-184 [facility] Comment on above: Performed By: #### C BCA, BMP, 53690-2, 16705-3, 60122-5 #### [facility] ([id number]) [address] [place] [address] 50904 COMPLEMENT C4 36 mg/dL Normal 16-47 [facility] Comment on above: Performed By: #### C BCA, BMP, , 51782-1, 94990-2 #### [facility] ([id number]) [address] [place] [address] 23513 COMPREHENSIVE METABOLIC PANE Phu 10-15-2023 Albumin [Mass/Vol] 2.8 g/dL Low 3.2-5.3 [facility] Comment on above: Performed By: #### C BCA, CMP, #### [facility] ([id number]) [address] [place] [address] 61968 ALP [Catalytic activity/Vol] 61 U/L Normal 39-130 [facility] Comment on above: Performed By: #### C BCA, CMP, 76783-0 #### [facility] ([id number]) [address] [place] [address] 98114 ALT [Catalytic activity/Vol] 10 U/L Normal 0-31 [facility] Comment on above: Performed By: #### C BCA, CMP, 98709-2 #### [facility] ([id number]) [address] [place] [address] 39454 Anion gap [Moles/Vol] 10 mmol/L Normal 5-15 [facility] Comment on above: Performed By: #### C BCA, CMP, 97115-1 #### [facility] ([id number]) [address] [place] [address] 94544 AST [Catalytic activity/Vol] 14 U/L Normal 0-41 [facility] Comment on above: Performed By: #### C VIRGILIO CMP, 64486-8 #### [facility] ([id number]) [address] [place] [address] 60789 Bilirubin [Mass/Vol] 0.4 mg/dL Normal 0.3-1.2 [facility] Comment on above: Performed By: #### C VIRGILIO, CMP, #### [facility] ([id number]) [address] [place] [address] 51138 Calcium [Mass/Vol] 8.4 mg/dL Low 8.5-10.5 [facility] Comment on above: Performed By: #### C VIRGILIO, [facility], 05985-7 #### [facility] ([id number]) [address] [place] [address] 09451 Chloride [Moles/Vol] 104 mmol/L Normal 98-109 [facility] Comment on above: Performed By: #### Shahla POOLE [facility], 77223-1 #### [facility] ([id number]) [address] [place] [address] 32621 CO2 [Moles/Vol] 26 mmol/L Normal 22-32 [facility] Comment on above: Performed By: #### Shahla POOLE [facility], 63217-5 #### [facility] ([id number]) [address] [place] [address] 97287 Creatinine [Mass/Vol] 2.56 mg/dL High 0.40-1.00 [facility] Comment on above: Result Comment: METH OD TRACEABLE TO IDMS STANDARD Performed By: #### C VIRGILIO, CMP, 13469-1 #### [facility] ([id number]) [address] [place] [address] 19145 GFR/1.73 sq M.predicted among non-blacks MDRD (S/P/Bld) [Vol rate/Area] 21 mL/min/{1.73_m2} Low >59 [facility] Comment on above: Result Comment: Reported eGFR is based on the CKD-EPI 2020 equation that does not use a race coefficient. Performed By: #### C EDEL POOLE, 04148-5 #### [facility] ([id number]) [address] [place] [address] 78965 Glucose [Mass/Vol] 103 mg/dL High 65-99 [facility] Comment on above: Performed By: #### C EDEL POOLE, 75066-4 #### [facility] ([id number]) [address] [place] [address] 87879 Potassium [Moles/Vol] 3.2 mmol/L Low 3.5-5.0 [facility] Comment on above: Performed By: #### C EDEL POOLE, #### [facility] ([id number]) [address] [place] [address] 96270 Protein [Mass/Vol] 5.6 g/dL Low 6.0-8.0 [facility] Comment on above: Performed By: #### C VIRGILIO [facility], 70467-2 #### [facility] ([id number]) [address] [place] [address] 79899 Sodium [Moles/Vol] 140 mmol/L Normal 134-146 [facility] Comment on above: Performed By: #### C VIRGILIO [facility], 76369-8 #### [facility] ([id number]) [address] [place] [address] 40575 Urea nitrogen [Mass/Vol] 20 mg/dL Normal 5-23 [facility] Comment on above: Performed By: #### C EDEL POOLE, 54351-6 #### [facility] ([id number]) [address] [place] [address] 18772 CRYOGLOBULIN WITH IDon 10-14 CRYOGLOBULIN, QUAL NEG 72HOUR Normal NEG 72Hour [facility] Comment on above: Result Comment: NOTE This test was developed and its performance characteristics determined by [facility]. It has not been cleared or approved by the US Food and Drug Administration. This test was performed in a CLIA certified laboratory and is intended for clinical purposes. Performed By: [facility] [address] [place] [address] [employer] Shearer: Hank Armstrong MD, PhD CLIA Number: [id number] Performed By: #### 8 9579-7 #### [facility] ([id number]) [address] [place] [address], [place] [address] Cobalamin (Vitamin B12) [Mas s/Vol]on 10-15-2023 Interpretation and review of laboratory results Abnormal [facility] Complement profile (C3 AND C 4)on 10-15-2023 Complement C3 [Mass/Vol] 113 mg/dL 86 - 184 mg/dL [facility] Complement C4 [Mass/Vol] 36 mg/dL 16 - 47 mg/dL [facility] Comprehensive metabolic pane phu 10-15-2023 Albumin [Mass/Vol] 2.8 g/dL Low 3.2 - 5.3 g/dL [facility] ALP [Catalytic activity/Vol] 61 U/L 39 - 130 U/L [facility] ALT No additional P-5'-P [Catalytic activity/Vol] 10 U/L 0 - 31 U/L [facility] Anion gap [Moles/Vol] 10 mmol/L 5 - 15 mmol/L [facility] AST [Catalytic activity/Vol] 14 U/L 0 - 41 U/L [facility] Bilirubin [Mass/Vol] 0.4 mg/dL 0.3 - 1 .2 mg/dL [facility] Calcium [Mass/Vol] 8.4 mg/dL Low 8.5 - 10. 5 mg/dL [facility] Chloride [Moles/Vol] 104 mmol/L 98 - 10 9 mmol/L [facility] CO2 [Moles/Vol] 26 mmol/L 22 - 32 mmol/L [facility] Creatinine [Mass/Vol] 2.56 mg/dL High 0.40 - 1.00 mg/dL [facility] Comment on above: METHOD TRACEABLE TO [facility] STANDARD eGFR (CKD-EPI)non-race dependent 21 Low - PINF [facility] Comment on above: Reported eGFR is based on the CKD-EPI 2020 equation that does not use a race coefficient. Glucose [Mass/Vol] 103 mg/dL High 65 - 99 mg/dL [facility] Potassium [Moles/Vol] 3.2 mmol/L Low 3.5 - 5.0 mmol/L [facility] Protein [Mass/Vol] 5.6 g/dL Low 6.0 - 8.0 g/dL [facility] Sodium [Moles/Vol] 140 mmol/L 134 - 146 mmol/L [facility] Urea nitrogen [Mass/Vol] 20 mg/dL 5 - 23 mg/dL [facility] Creatinine (U) [Mass/Vol]on 10-15-2023 [facility] URINE CREATININE,RDM 102.61 mg/dL Normal Pr [facility] Comment on above: Performed By: #### C MARIO POOLE, , 76020-9, 92152-5 #### [facility] ([id number]) [address] [place] [address] 97731 FERRITINon 10-15-2023 Ferritin [Mass/Vol] 45 ng/mL Normal 11-307 [facility] Comment on above: Performed By: #### C MARIO POOLE, 15516-9, 86963-3, 45394-4 #### [facility] ([id number]) [address] [place] [address] 74937 FREE LIGHT CHAINSon 10-15-19 24 FREE ANDREA/LAMBD RATIO 0.94 Normal 0.26-1.65 [facility] Comment on above: Performed By: #### C MARIO POOLE, , 93379-0, 24207-9 #### [facility] ([id number]) [address] [place] [address] 91891 FREE KAPPA LT CHAINS 3.52 mg/dL High 0.33-1.94 [facility] Comment on above: Performed By: #### C MARIO POOLE, , 82266-4, 81879-0 #### [facility] ([id number]) [address] [place] [address] 92625 FREE LAMBDA LT CHAINS 3.75 mg/dL High 0.57-2.63 [facility] Comment on above: Performed By: #### C MARIO POOLE, , 07335-8, 29588-7 #### [facility] ([id number]) [address] [place] [address] 42873 Ferritinon 10-15-2023 Ferritin [Mass/Vol] 45 ng/mL 11 - 307 ng/mL [facility] Ferritin [Mass/Vol]on 2023 [facility] Folateon 10-15-2023 Folate [Mass/Vol] 10.3 ng/mL 5.8 - PINF ng/mL [facility] Comment on above: NEW REFERENCE RANGE Folate [Mass/Vol]on 10-15-19 24 [facility] FOLIC ACID 10.3 ng/mL Normal >5.8 [facility] Comment on above: Result Comment: NEW REFERENCE RANGE Performed By: #### C MARIO POOLE, , 00681-7, 88556-2 #### [facility] ([id number]) [address] [place] [address] 75469 HBV surface Ab IA Qnon 10-14 Anti HBs quant. <8.00 Normal [facility] Comment on above: Result Comment: Vacc inated: >=12mIU/mL, Positive (Immune) Unvaccinated: <8mIU/mL, Negative (Not Immune) 8-11.99 mIU/mL: Indeterminate, (Considered Not Immune) Performed By: #### C MARIO POOLE, , 25975-9, 67390-6 #### [facility] ([id number]) [address] [place] [address] 13306 HBV surface Ag IA Qlon 10-14 HEPATITIS B SURF AG Negative Normal NEG [facility] Comment on above: Performed By: #### C MARIO POOLE, 47918-5, 52905-9, 19799-8 #### [facility] ([id number]) [address] [place] [address] HCV Ab IA Qlon 10-15-2023 ANTI HCV W/PCR REFLX Non-Reactive Normal NRCT Pr [facility] Comment on above: Result Comment: If recent infection suspected, recommend repeat testing (>2 months). Rohais-km-wbluvx ratio is <0.80. Performed By: #### C VIRGILIO, MARIO, 67909-8, 08217-5, 08588-2 #### [facility] ([id number]) [address] [place] [address] HIV 1&2 AB/AG Screen (P24 AG )on 10-15-2023 HIV 1+2 Ab+HIV1 p24 Ag IA Ql Non-Reactive Non-Reacti ve^Non-Sinclair ctive [facility] Comment on above: This information [...] and 2 Ab/Ag Screen Non-Reactive Normal NRCT [facility] Comment on above: Result [...] Performed By: #### C MARIO POOLE, , 81532-7, 40660-0 #### [facility] ([id number]) [address] [place] [address] 11566 Hepatitis B Surface Antibody Quantitationon 10-15-2023 HBV surface Ab IA Qn mIU/mL [facility] Comment on above: Vaccinated: >=12mIU/ mL, Positive (Immune) Unvaccinated: <8mIU/mL, Negative (Not Immune) 8-11.99 mIU/mL: Indeterminate, (Considered Not Immune) Hepatitis B surface antigeno n 10-15-2023 HBV surface Ag IA Ql Negative Negativ e^N egative [facility] Hepatitis C(HCV) Ab w/ Refle x to PCRon 10-15-2023 HCV Ab IA Ql Non-Reactive Non-Reacti ve^Non-[place]es[place] ctive [facility] Comment on above: If recent infection suspected, recommend repeat testing (>2 months). Nyhluo-qs-gzdlfa ratio is <0.80. IRON PROFILEon 10-15-2023 Iron [Mass/Vol] 30 ug/dL Low 50-170 [facility] Comment on above: Performed By: #### C MARIO POOLE, , 69754-2, 89628-7 #### [facility] ([id number]) [address] [place] [address] 31634 IRON BINDING 218 ug/dL Low 250-425 [facility] Comment on above: Performed By: #### C MARIO POOLE, , 20334-4, 72724-4 #### [facility] ([id number]) [address] [place] [address] 20650 IRON SATURATION 14 % SATURATION Low 15-50 [facility] Comment on above: Performed By: #### C MARIO POOLE, 77945-6, 95401-4, 36549-1 #### [facility] ([id number]) [address] [place] [address] 50956 Iron and TIBCon 10-15-2023 Interpretation and review of laboratory results Abnormal [facility] Iron [Mass/Vol] 30 ug/dL Low 50 - 170 ug/dL [facility] Iron binding capacity [Mass/Vol] 218 ug/dL Low 250 - 425 ug/dL [facility] Iron saturation [Mass fraction] 14 Low [facility] MAGNESIUMon 10-15-2023 Magnesium [Mass/Vol] 1.7 mg/dL Low 1.8-2.6 [facility] Comment on above: Performed By: #### C VIRGILIO, CMP, 47311-6 #### [facility] ([id number]) [address] [place] [address] 40125 Magnesiumon 10-15-2023 Magnesium [Mass/Vol] 1.7 mg/dL Low 1.8 - 2 .6 mg/dL [facility] Myeloperoxidase IgG Qn (S)on 10-15-2023 Myeloperoxidase IgG >8.0 High <0.4 (Negative) [facility] Comment on above: Result Comment: NOTE Interpretation: Positive (>=1.0) Test Performed by: [place] [address] Claims Representative: Ledy Son Ph.D.; CLIA# [id number] Performed By: #### C VIRGILIO, BMP, 84239-7, 41296-1, 44698-8 #### [facility] ([id number]) [address] [place] [address] 44384 No Panel Informationon 10-14 [facility] Interpretation and review of laboratory results Abnormal [facility] Nuclear Ab IA Ql (S)on 10-14 SAUL Screen w/reflex Negative Normal NEG [facility] Comment on above: Result Comment: Testing performed using multiplex flow immunoassay. Eleven different antigens associated with systemic autoimmune diseases (dsDNA,Sm,Sm/GARMENT PARTS CUTTER MACHINE,GARMENT PARTS CUTTER MACHINE,Chromatin, SSA,SSB,Yoly-1,Scl70,Ribo P,Centromere B) are included in this screening test. Performed By: #### C MARIO POOLE, 86482-3, 64584-9, 22368-8 #### [facility] ([id number]) [address] [place] [address] 91161 POTASSIUMon 10-15-2023 Potassium [Moles/Vol] 3.5 mmol/L Normal 3.5-5.0 [facility] Comment on above: Performed By: #### C MRAIO POOLE, 06787-2, 56669-0, 15918-7 #### [facility] ([id number]) [address] [place] [address] 28433 Potassiumon 10-15-2023 Potassium [Moles/Vol] 3.5 mmol/L 3.5 - 5.0 mmol/L [facility] Potassium [Moles/Vol]on 09-23 [facility] Proteinase 3 IgG IA Qnon Proteinase 3 IgG 0.2 U Normal <0.4 (Negative) [facility] Comment on above: Result Comment: NOTE Test Performed by: [facility] [address] [place] [address] Claims Representative: Ledy Son Ph.D.; CLIA# [id number] Performed By: #### C MARIO POOLE, 40863-7, 30244-1, 80607-8 #### [facility] ([id number]) [address] [place] [address] 60412 Rheumatoid factoron 10-15-19 24 Rheumatoid factor Nephelometry Qn (S) 76 High NINF [facility] Rheumatoid factor Nephelomet ry Qn (S)on 10-15-2023 Interpretation and review of laboratory results Abnormal [facility] RHEUMATOID FACTOR 76 IU/mL High <20 [facility] Comment on above: Performed By: #### C BCA, BMP, , 36051-8, 85609-8 #### [facility] ([id number]) [address] [place] [address] 34432 SERUM PROTEIN ELECTROPHORESI Son 10-15-2023 Albumin [Mass/Vol] 2.5 g/dL Low 3.4-5.3 [facility] Comment on above: Performed By: #### C BCA, BMP, , 29835-0, 79101-9 #### [facility] ([id number]) [address] [place] [address] 71546 ALPHA 1 GLOBULIN 0.4 g/dL Normal 0.1-0.4 [facility] Comment on above: Performed By: #### C BCA, BMP, , 66446-8, 00045-0 #### [facility] ([id number]) [address] [place] [address] 89484 ALPHA 2 GLOBULIN 0.9 g/dL Normal 0.4-1.1 [facility] Comment on above: Performed By: #### C BCA, BMP, , 85997-7, 44563-9 #### [facility] ([id number]) [address] [place] [address] 25453 BETA GLOBULIN 0.5 g/dL Normal 0.5-1.2 [facility] Comment on above: Performed By: #### C BCA, BMP, , 75548-8, 02883-7 #### [facility] ([id number]) [address] [place] [address] 90688 GAMMA GLOBULIN 0.4 g/dL Low 0.5-1.6 [facility] Comment on above: Performed By: #### C BCA, BMP, , 84630-1, 17010-0 #### [facility] ([id number]) [address] [place] [address] 43810 PROT. ELECTROPHORESIS INTERP Unremarkable protein distribution, no monoclonal bands. Normal [facility] Comment on above: Performed By: #### C MARIO POOLE, , 56956-9, 10802-9 #### [facility] ([id number]) [address] [facility], [place] [address] Protein [Mass/Vol] 4.7 g/dL Low 6.0-8.0 [facility] Comment on above: Performed By: #### C VIRGILIO, BMP, , 56745-5, 86272-2 #### [facility] ([id number]) [address] [place] [address], [place] [address] Sodium (U) [Moles/Vol]on [facility] Sodium, urine, randomon 09-23 Sodium (U) [Moles/Vol] 86 mmol/L Pr [facility] Troponin I, High Sensitivity 1 Houron 10-15-2023 Troponin I.cardiac High sensitivity method [Mass/Vol] 39 ng/L High NINF - 16 ng/L [facility] Comment on above: Elevations of hs-Troponin may be due to causes other than myocardial ischemia. Recommend serial hs-Troponin testing be performed. For the initial evaluation and management of chest pain patients, refer to the algorithms linked below. Emergency Patient: [email or web address] Inpatient: [email or web address] Troponin I.cardiac High sens itivity method [Mass/Vol]on 10-15-2023 Interpretation and review of laboratory results Abnormal [facility] URINALYSISon 10-15-2023 Bilirubin Ql (U) Negative Normal NEG [facility] Comment on above: Performed By: #### C VIRGILIO, BMP, , 73963-5, 77240-6 #### [facility] ([id number]) [address] [place] [address] [place] [address] BLOOD/HGB Large Abnormal NEG [facility] Comment on above: Performed By: #### C BCA, BMP, 15762-0, 18390-8, 80782-2 #### [facility] ([id number]) [address] [place] [address] [place] [address] Color (U) YELLOW Normal YELLOW [facility] Comment on above: Performed By: #### C BCA, BMP, 02046-2, 73513-8, 12021-4 #### [facility] ([id number]) [address] [place] [address] [place] [address] Glucose Ql (U) Negative Normal NEG [facility] Comment on above: Performed By: #### C BCA, BMP, 15125-8, 81013-7, 82756-1 #### [facility] ([id number]) [address] [place] [address] [place] [address] Ketones Ql (U) Negative Normal NEG [facility] Comment on above: Performed By: #### C BCA, BMP, 26745-2, 46943-7, 03028-5 #### [facility] ([id number]) [address] [place] [address] [place] [address] Leukocyte esterase Test strip Ql (U) Negative Normal NEG [facility] Comment on above: Performed By: #### C BCA, BMP, 48772-1, 98326-3, 19720-0 #### [facility] ([id number]) [address] [place] [address] 57338 Nitrite Ql (U) Negative Normal NEG [facility] Comment on above: Performed By: #### C BCA, BMP, 20575-3, 62115-0, 07529-8 #### [facility] ([id number]) [address] [place] [address], [place] [address] pH (U) 6.0 [pH] Normal 5.0-8.5 [facility] Comment on above: Performed By: #### C VIRGILIO, BMP, 55006-9, 27776-0, 49260-6 #### [facility] ([id number]) [address] [place] [address] 55388 Protein Ql (U) >300 Abnormal NEG [facility] Comment on above: Performed By: #### C VIRGILIO, BMP, 88961-6, 15058-3, 78243-0 #### [facility] ([id number]) [address] [place] [address] 34440 R.B.CELLS 30 /hpf High 0-5 [facility] Comment on above: Performed By: #### C VIRGILIO, BMP, 11315-1, 50537-7, 25526-8 #### [facility] ([id number]) [address] [place] [address] 13146 Specific gravity (U) [Rel density] 1.025 Normal 1.003-1.[address] [place] [address] Comment on above: Performed By: #### C VIRGILIO, BMP, 43807-8, 08212-8, 55469-3 #### [facility] ([id number]) [address] [place] [address] 80339 SQUAMOUS EPITHELIUM 6 /hpf High 0-5 [facility] Comment on above: Performed By: #### C VIRGILIO, BMP, 19706-6, 16382-4, 31894-6 #### [facility] ([id number]) [address] [place] [address] 72845 TURBIDITY CLEAR Normal CLEAR [facility] Comment on above: Performed By: #### C VIRGILIO, BMP, 47585-4, 08268-0, 10859-8 #### [facility] ([id number]) [address] [place] [address], [place] [address] Urobilinogen Qn (U) 0.2 {Micaela'U}/dL Normal <1.1 [facility] Comment on above: Performed By: #### C MARIO POOLE, 15860-4, 79509-0, 90597-1 #### [facility] ([id number]) [address] [place] [address] 22063 W.B.CELLS 10 /hpf High 0-5 [facility] Comment on above: Performed By: #### C VIRGILIO, MARIO, 53562-1, 89654-0, 90886-8 #### [facility] ([id number]) [address] [place] [address] 19782 URINE SODIUM,RANDOMon 2023 Sodium (U) [Moles/Vol] 86 mmol/L [facility] Comment on above: Performed By: #### C VIRGILIO, MARIO, , 60709-9, 64730-6 #### [facility] ([id number]) [address] [place] [address] 77220 Urinalysison 10-15-2023 Bilirubin Ql (U) Negative Negative^N [...] [Mass/Vol] mg/dL Abnormal Negat marva^N egative mg/dL [facility] RBC Auto (Urine sed) [#/Area] 30 High [facility] Specific gravity Refractometry automated (U) [Rel density] 1.025 1.003 - 1.035 [facility] Turbidity Ql (U) CLEAR CLEAR^NUNU R [facility] Urobilinogen Qn (U) 0.2 NINF [facility] WBC Auto (Urine sed) [#/Area] 10 High [facility] Urine Creatinine,randomon Creatinine (U) [Mass/Vol] 102.61 mg/dL [facility] VITAMIN B12on 10-15-2023 Cobalamin (Vitamin B12) [Mass/Vol] 159 pg/mL Low 180-914 [facility] Comment on above: Performed By: #### C VIRGILIO BMP, 19870-1, 93641-1, 67234-7 #### [facility] ([id number]) [address] [place] [address] 51407 Vitamin B12on 10-15-2023 Cobalamin (Vitamin B12) [Mass/Vol] 159 pg/mL Low 180 - 914 pg/mL [facility] BASIC METABOLIC PANLon 10-13 Anion gap [Moles/Vol] 5 mmol/L Normal 5-15 [facility] Comment on above: Performed By: #### C VIRGILIO BMP, , 93212-1, 62487-5 #### [facility] ([id number]) [address] [place] [address] 70247 Calcium [Mass/Vol] 8.1 mg/dL Low 8.5-10.5 [facility] Comment on above: Performed By: #### C BCA BMP, , 75235-0, 42642-8 #### [facility] ([id number]) [address] [place] [address] 56247 Chloride [Moles/Vol] 107 mmol/L Normal 98-109 [facility] Comment on above: Performed By: #### C VIRGILIO, BMP, , 96040-9, 42635-0 #### [facility] ([id number]) [address] [place] [address] 34291 CO2 [Moles/Vol] 27 mmol/L Normal 22-32 [facility] Comment on above: Performed By: #### C BCA, BMP, , 88958-6, 74795-4 #### [facility] ([id number]) [address] [place] [address] 87174 Creatinine [Mass/Vol] 2.56 mg/dL High 0.40-1.00 [facility] Comment on above: Result Comment: METH OD TRACEABLE TO IDMS STANDARD Performed By: #### C VIRGILIO, BMP, , 44307-9, 35850-4 #### [facility] ([id number]) [address] [place] [address] 95667 GFR/1.73 sq M.predicted among non-blacks MDRD (S/P/Bld) [Vol rate/Area] 21 mL/min/{1.73_m2} Low >59 [facility] Comment on above: Result Comment: Reported eGFR is based on the CKD-EPI 2020 equation that does not use a race coefficient. Performed By: #### C VIRGILIO, BMP, , 70396-5, 95182-1 #### [facility] ([id number]) [address] [place] [address] 88222 Glucose [Mass/Vol] 95 mg/dL Normal 65-99 [facility] Comment on above: Performed By: #### C BCA, BMP, , 04459-9, 19985-3 #### [facility] ([id number]) [address] [place] [address] 94457 Potassium [Moles/Vol] 3.1 mmol/L Low 3.5-5.0 [facility] Comment on above: Performed By: #### C BCA, BMP, 75649-7, 43590-4, 21973-5 #### [facility] ([id number]) [address] [place] [address] 11738 Sodium [Moles/Vol] 139 mmol/L Normal 134-146 [facility] Comment on above: Performed By: #### C BCA, BMP, 78283-8, 71625-8, 64586-5 #### [facility] ([id number]) [address] [place] [address] 98415 Urea nitrogen [Mass/Vol] 19 mg/dL Normal 5-23 [facility] Comment on above: Performed By: #### C BCA, BMP, 16301-5, 40866-1, 60262-3 #### [facility] ([id number]) [address] [place] [address] 55910 Basic Metabolic Panelon - Anion gap [Moles/Vol] 5 mmol/L 5 - 15 mmol/L [facility] Calcium [Mass/Vol] 8.1 mg/dL Low 8.5 - 10. 5 mg/dL [facility] Chloride [Moles/Vol] 107 mmol/L 98 - 10 9 mmol/L [facility] CO2 [Moles/Vol] 27 mmol/L 22 - 32 mmol/L [facility] Creatinine [Mass/Vol] 2.56 mg/dL High 0.40 - 1.00 mg/dL [facility] Comment on above: METHOD TRACEABLE TO IDMS STANDARD eGFR (CKD-EPI)non-race dependent 21 Low - PINF [facility] Comment on above: Reported eGFR is based on the CKD-EPI 2020 equation that does not use a race coefficient. Glucose [Mass/Vol] 95 mg/dL 65 - 99 mg/dL [facility] Interpretation and review of laboratory results Abnormal [facility] Potassium [Moles/Vol] 3.1 mmol/L Low 3.5 - 5.0 mmol/L [facility] Sodium [Moles/Vol] 139 mmol/L 134 - 146 mmol/L [facility] Urea nitrogen [Mass/Vol] 19 mg/dL 5 - 23 mg/dL [facility] CBC AND AUTO DIFFon 10-14-19 24 ABSOLUTE BASOPHIL 0.1 X10E9/L Normal 0.0-0.2 [facility] Comment on above: Performed By: #### C VIRGILIO, BMP, , 46177-4, 83245-3 #### [facility] ([id number]) [address] [place] [address] 03052 ABSOLUTE NEUTROPHIL 5.7 X10E9/L Normal 1.5-6.6 [facility] Comment on above: Performed By: #### Shahla POOLE, BMP, , 71726-4, 77596-5 #### [facility] ([id number]) [address] [place] [address] 40570 Basophils/100 WBC (Bld) 0.7 % Normal [facility] Comment on above: Performed By: #### C VIRGILIO, BMP, , 33038-6, 90962-0 #### [facility] ([id number]) [address] [place] [address] 62869 Eosinophils (Bld) [#/Vol] 0.5 10*3/uL High 0.0-0.4 [facility] Comment on above: Performed By: #### Shahla POOLE, BMP, , 79878-1, 41681-9 #### [facility] ([id number]) [address] [place] [address] 76315 Eosinophils/100 WBC (Bld) 4.9 % Normal [facility] Comment on above: Performed By: #### Shahla BCA, BMP, , 95343-5, 39917-8 #### [facility] ([id number]) [address] [place] [address] 94054 Erythrocyte distribution width (RBC) [Ratio] 14.6 % Normal 11.5-15.0 [facility] Comment on above: Performed By: #### C VIRGILIO, BMP, 92512-4, 23107-2, 59172-1 #### [facility] ([id number]) [address] [place] [address] 28476 Hematocrit (Bld) [Volume fraction] 33.2 % Low 35-47 [facility] Comment on above: Performed By: #### C BCA, BMP, 47352-4, 16100-6, 73123-9 #### [facility] ([id number]) [address] [place] [address] 71681 Hemoglobin (Bld) [Mass/Vol] 10.9 g/dL Low 11.7-15.5 [facility] Comment on above: Performed By: #### Shahla POOLE, BMP, , 23937-3, 10864-3 #### [facility] ([id number]) [address] [place] [address] 53576 Lymphocytes (Bld) [#/Vol] 2.8 10*3/uL Normal 1.0-3.5 [facility] Comment on above: Performed By: #### C BCA, BMP, , 75600-1, 34365-4 #### [facility] ([id number]) [address] [place] [address] 46260 Lymphocytes/100 WBC (Bld) 28.7 % Normal [facility] Comment on above: Performed By: #### C BCA, BMP, 12129-5, 94298-2, 79287-4 #### [facility] ([id number]) [address] [place] [address] 95619 MCH (RBC) [Entitic mass] 27.7 pg Normal 27-34 [facility] Comment on above: Performed By: #### C BCA, BMP, 96641-8, 79589-2, 37876-1 #### [facility] ([id number]) [address] [place] [address] 84066 MCHC (RBC) [Mass/Vol] 32.9 g/dL Normal 32-36 [facility] Comment on above: Performed By: #### Shahla POOLE, MARIO, , 99150-6, 12752-5 #### [facility] ([id number]) [address] [place] [address] 81706 MCV (RBC) [Entitic vol] 84 fL Normal 80-100 [facility] Comment on above: Performed By: #### Shahla POOLE, MARIO, , 88950-2, 17304-7 #### [facility] ([id number]) [address] [place] [address] 51163 Monocytes (Bld) [#/Vol] 0.8 10*3/uL Normal 0-0.9 [facility] Comment on above: Performed By: #### Shahla POOLE, MARIO, , 11428-9, 33306-6 #### [facility] ([id number]) [address] [place] [address] 44081 Monocytes/100 WBC (Bld) 8.1 % Normal [facility] Comment on above: Performed By: #### Shahla POOLE, BMP, , 05137-5, 01826-5 #### [facility] ([id number]) [address] [place] [address] 13946 Neutrophils/100 WBC (Bld) 57.6 % Normal [facility] Comment on above: Performed By: #### Shahla POOLE, BMP, , 66569-2, 55509-3 #### [facility] ([id number]) [address] [place] [address] 96559 Platelet mean volume (Bld) [Entitic vol] 8.9 fL Normal 7-12 [facility] Comment on above: Performed By: #### Shahla POOLE, MARIO, 21825-3, 91117-0, 25196-7 #### [facility] ([id number]) [address] [place] [address] 86400 Platelets (Bld) [#/Vol] 319 10*3/uL Normal 150-450 [facility] Comment on above: Performed By: #### Shahla POOLE, MARIO, , 50762-7, 96417-2 #### [facility] ([id number]) [address] [place] [address] 74932 RBC COUNT 3.95 X10E12/L Normal 3.80-5.20 [facility] Comment on above: Performed By: #### Shahla POOLE, MARIO, , 07092-4, 40750-8 #### [facility] ([id number]) [address] [place] [address] 77079 WBC (Bld) [#/Vol] 9.9 10*3/uL Normal 4.0-11.0 [facility] Comment on above: Performed By: #### Shahla POOLE, MARIO, , 73916-0, 40622-5 #### [facility] ([id number]) [address] [place] [address] 33302 CBC auto differentialon 09-23 Basophils (Bld) [#/Vol] [...] 10.9 g/dL Low 11.7 - 15.5 g/dL [facility] Interpretation and review of laboratory results Abnormal [facility] Lymphocytes (Bld) [#/Vol] 2.8 10*3/uL [facility] Lymphocytes/100 WBC (Bld) 28.7 % [facility] MCH (RBC) [Entitic mass] 27.7 pg 27 - 34 pg [facility] MCHC (RBC) [Mass/Vol] 32.9 g/dL 32 - 3 6 g/dL [facility] MCV (RBC) [Entitic vol] 84 fL 80 - 100 fL [facility] Monocytes (Bld) [#/Vol] 0.8 10*3/uL [facility] Monocytes/100 WBC (Bld) 8.1 % P [facility] Neutrophils (Bld) [#/Vol] 5.7 10*3/uL [facility] Neutrophils/100 WBC (Bld) 57.6 % [facility] Platelet mean volume (Bld) [Entitic vol] 8.9 fL 7 - 12 fL [facility] Platelets (Bld) [#/Vol] 319 10*3/uL [facility] RBC (Bld) [#/Vol] 3.95 10*6/uL [facility] WBC corrected for nucl RBC Auto (Bld) [#/Vol] 9.9 [facility] ECG 12 leadOrdered By: Mauricio Huber on 10-14-2023 [facility] MAGNESIUMon 10-14-2023 Magnesium [Mass/Vol] 1.8 mg/dL Normal 1.8-2.6 [facility] Comment on above: Performed By: #### C BCA, BMP, 99074-7, 63254-6, 16359-1 #### [facility] ([id number]) [address] [place] [address] Magnesiumon 10-14-2023 Magnesium [Mass/Vol] 1.8 mg/dL 1.8 - 2 .6 mg/dL [facility] Natriuretic peptide B [Mass/ Vol]on 10-14-2023 Interpretation and review of laboratory results Abnormal [facility] Natriuretic peptide B (Bld) [Mass/Vol] 427 pg/mL High NINF - 100.0 pg/mL [facility] Natriuretic peptide B (Bld) [Mass/Vol] 427 pg/mL High <100.0 [facility] Comment on above: Performed By: #### C BCA, BMP, 92189-3, 64099-5, 32995-7 #### [facility] ([id number]) [address] [place] [address], [place] [address] No Panel Informationon 10-13 [facility] Troponin I, High Sensitivity on 10-14-2023 Troponin I.cardiac High sensitivity method [Mass/Vol] 39 ng/L High NINF - 16 ng/L [facility] Comment on above: Elevations of hs-Troponin may be due to causes other than myocardial ischemia. Recommend serial hs-Troponin testing be performed. For the initial evaluation and management of chest pain patients, refer to the algorithms linked below. Emergency Patient: [email or web address] Inpatient: [email or web address]&uh=[email or web address] Troponin I.cardiac High sens itivity method [Mass/Vol]on 10-14-2023 1 HOUR TROP I, HIGH SENSITIVITY 39 ng/L High <16 [facility] Comment on above: Result Comment: Elevations of hs-Troponin may be due to causes other than myocardial ischemia. Recommend serial hs-Troponin testing be performed. For the initial evaluation and management of chest pain patients, refer to the algorithms linked below. Emergency Patient: [email or web address]=[email or web address] Inpatient: [email or web address]&uh=[email or web address] Performed By: #### 8 9579-7 #### [facility] ([id number]) [address] [place] [address] 64329 Interpretation and review of laboratory results Abnormal [facility] TROPONIN I, HIGH SENSITIVITY 39 ng/L High <16 [facility] Comment on above: Result Comment: Elevations of hs-Troponin may be due to causes other than myocardial ischemia. Recommend serial hs-Troponin testing be performed. For the initial evaluation and management of chest pain patients, refer to the algorithms linked below. Emergency Patient: [email or web address]&uh=[email or web address] Inpatient: [email or web address] 5&uh=acaea Performed By: #### C BCA, BMP, 21140-4, 76484-1, 42878-9 #### [facility] ([id number]) [address] [place] [address], [place] [address] XR CHEST 1 VWon 10-14-2023 XR CHEST 1 VW XR CHEST 1 VW Single view chest History: Difficulty breathing, shortness of breath Comparison: 01/01/2021 Impression: 1. Low lung volumes and hypoventilatory change, Central pulmonary vascular congestion without overt pulmonary edema. No sizable pleural effusion, no definite pneumothorax. 2. Borderline cardiomegaly. Finalized by Naren Morris MD on 10/14/2023 11:39 PM Normal [facility] XR Chest Single viewon [...] Naren Morris MD on 10/14/2023 11:39 PM [facility] Study observation (narrative) [facility] XR Chest Single viewOrdered By: Naren Morris on 10-14-2023 [facility] Work Phone: ANTIBODY ID PANELon 01-03-20 ANTIBODY ID PANEL Antibody ID Anti-Jka Normal [facility] Comment on above: Performed By: #### C TABBY, HSTROPN #### [facility] [address] [place] [address] Dr. Steve Valentin CBC AUTO DIFFon 12-31-2021 BASO # 0.0 103/ul Normal 0.0-0.1 [facility] Comment on above: Performed By: #### C TABBY, HSTROPN #### [facility] [address] [place] [address] Dr. Steve Valentin Basophils/100 WBC (Bld) 0.9 % Normal 0.2-2.[address] [facility] Comment on above: Performed By: #### C TABBY, HSTROPN #### [facility] [address] [place] [address] Dr. Steve Valentin EO # 0.2 103/ul Normal 0.0-0.7 [facility] Comment on above: Performed By: #### C TABBY, HSTROPN #### [facility] [address] [place] [address] Dr. Steve Valentin Eosinophils/100 WBC (Bld) 4.3 % Normal 0.9-7.0 [facility] Comment on above: Performed By: #### C TABBY, HSTROPN #### [facility] [address] [address] [address] Steve Valentin Erythrocyte distribution width (RBC) [Ratio] 14.1 % Normal 11.0-15.0 [facility] Comment on above: Performed By: #### C MP, HSTROPN #### [facility] [address] [place] [address] Dr. Steve Valentin Hematocrit (Bld) [Volume fraction] 34.6 % Critically low 36.0-48.0 [facility] Comment on above: Performed By: #### C MP, HSTROPN #### [facility] [address] [place] [address] Dr. Steve Valentin Hemoglobin (Bld) [Mass/Vol] 10.9 g/dL Critically low 12.0-16.0 [facility] Comment on above: Performed By: #### C MP, HSTROPN #### [facility] [address] [place] [address] Dr. Steve Valentin IG # 0.01 10e3/ul Normal 0.00-0.03 [facility] Comment on above: Performed By: #### C MP, HSTROPN #### [facility] [address] [place] [address] Dr. Steve Valentin IG % 0.3 % Normal 0.0-0.5 [facility] Comment on above: Performed By: #### C MP, HSTROPN #### [facility] [address] [place] [address] Dr. Steve Valentin LYMPH # 0.9 103/ul Critically low 1.2-3.8 [facility] Comment on above: Performed By: #### C MP, HSTROPN #### [facility] [address] [place] [address] Dr. Steve Valentin Lymphocytes/100 WBC (Bld) 26.3 % Normal 20.5-60.0 [facility] Comment on above: Performed By: #### C MP, HSTROPN #### [facility] [address] [place] [address] Dr. Steve Valentin MANUAL DIFF REQ NO Normal [facility] Comment on above: Performed By: #### C MP, HSTROPN #### [facility] [address] [place] [address] Dr. Steve Valentin MCH (RBC) [Entitic mass] 26.7 pg Normal 26.7-34.0 [facility] Comment on above: Performed By: #### C MP, HSTROPN #### [facility] [address] [place] [address] Dr. Steve Valentin MCHC (RBC) [Mass/Vol] 31.5 g/dL Normal 29.9-35.2 [facility] Comment on above: Performed By: #### C MP, HSTROPN #### [facility] [address] [place] [address] Dr. Steve Valentin MCV (RBC) [Entitic vol] 84.8 fL Normal 81.0-99.[address] [facility] Comment on above: Performed By: #### C MP, HSTROPN #### [facility] [address] [place] [address] Dr. Steve Valentin MONO # 0.3 103/ul Normal 0.3-0.8 [facility] Comment on above: Performed By: #### C MP, HSTROPN #### [facility] [address] [place] [address] Dr. Steve Valentin Monocytes/100 WBC (Bld) 9.5 % Normal 1.7-12.[address] [facility] Comment on above: Performed By: #### C MP, HSTROPN #### [facility] [address] [place] [address] Dr. Steve Valentin NEUT # 2.0 103/ul Normal 1.4-6.5 [facility] Comment on above: Performed By: #### C MP, HSTROPN #### [facility] [address] [place] [address] Dr. Steve Valentin Neutrophils/100 WBC (Bld) 58.7 % Normal 43.0-75.0 [facility] Comment on above: Performed By: #### C MP, HSTROPN #### [facility] [address] [address] [address] Steve Valentin Platelet mean volume (Bld) [Entitic vol] 10.5 fL Normal 9.5-13.5 [facility] Comment on above: Performed By: #### C MP, HSTROPN #### [facility] [address] [address] [address] Steve Valentin PLT 164 103/ul Normal 150-450 [facility] Comment on above: Performed By: #### C MP, HSTROPN #### [facility] [address] [place] [address] Dr. Steve Valentin RBC 4.08 106/ul Critically low 4.20-5.40 [facility] Comment on above: Performed By: #### C MP, HSTROPN #### [facility] [address] [place] [address] Dr. Steve Valentin WBC 3.5 103/ul Critically low 4.0-11.0 [facility] Comment on above: Performed By: #### C MP, HSTROPN #### [facility] [address] [place] [address] Dr. Steve Valentin PROF 14(COMP METB)on 022 Albumin [Mass/Vol] 3.0 g/dL Critically low 3.4-5.0 [facility] Comment on above: Performed By: #### C MP #### [facility] [address] [place] [address] Dr. Steve Valentin Albumin/Globulin [Mass ratio] 1.0 {ratio} Normal [facility] Comment on above: Performed By: #### C MP #### [facility] [address] [place] [address] Dr. Steve Valentin ALP [Catalytic activity/Vol] 56 U/L Normal 46-116 [facility] Comment on above: Performed By: #### C MP #### [facility] [address] [place] [address] Dr. Steve Valentin ALT [Catalytic activity/Vol] 20 U/L Normal 14-59 [facility] Comment on above: Performed By: #### C MP #### [facility] [address] [address] [address] Steve Valentin Anion gap [Moles/Vol] 9.3 mmol/L Normal [facility] Comment on above: Performed By: #### C MP #### [facility] [address] [address] [address] Steve Valentin AST [Catalytic activity/Vol] 17 U/L Normal 15-37 [facility] Comment on above: Performed By: #### C MP #### [facility] [address] [address] [address] Steve Valentin Bilirubin [Mass/Vol] 0.2 mg/dL Normal 0.2-1.0 [facility] Comment on above: Performed By: #### C MP #### [facility] [address] [address] [address] Steve Valentin Calcium [Mass/Vol] 8.8 mg/dL Normal 8.5-10.1 [facility] Comment on above: Performed By: #### C MP #### [facility] [address] [address] [address] Steve Valentin Chloride [Moles/Vol] 106 mmol/L Normal 98-107 [facility] Comment on above: Performed By: #### C MP #### [facility] [address] [address] [address] Steve Valentin CO2 [Moles/Vol] 26.5 mmol/L Normal 21.0-32.0 [facility] Comment on above: Performed By: #### C MP #### [facility] [address] [address] [address] Steve Valentin Creatinine [Mass/Vol] 0.92 mg/dL Normal 0.55-1.02 [facility] Comment on above: Performed By: #### C MP #### [facility] [address] [place] [address] Dr. Steve Valentin EGFR-AF LUXEMBOURGER >60 Normal >=60 [facility] Comment on above: Performed By: #### C MP #### [facility] [address] [address] [address] Steve Valentin EGFR-NON AF LUXEMBOURGER >60 Normal >=60 [facility] Comment on above: Performed By: #### C MP #### [facility] [address] [address] [address] Steve Valentin Globulin (S) [Mass/Vol] 2.9 g/dL Normal [facility] Comment on above: Performed By: #### C MP #### [facility] [address] [address] [address] Steve Valentin Glucose [Mass/Vol] 97 mg/dL Normal 74-106 [facility] Comment on above: Performed By: #### C MP #### [facility] [address] [address] [address] Steve Valentin Potassium [Moles/Vol] 3.8 mmol/L Normal 3.5-5.1 [facility] Comment on above: Performed By: #### C MP #### [facility] [address] [address] [address] Steve Valentin Protein [Mass/Vol] 5.9 g/dL Critically low 6.4-8.[address] [facility] Comment on above: Performed By: #### C MP #### [facility] [address] [address] [address] Steve Valentin Sodium [Moles/Vol] 138 mmol/L Normal 136-145 [facility] Comment on above: Performed By: #### C MP #### [facility] [address] [address] [address] Steve Valentin Urea nitrogen [Mass/Vol] 5.0 mg/dL Critically low 7.0-18. 0 [facility] Comment on above: Performed By: #### C MP #### [facility] [address] [address] [address] Steve Valentin Urea nitrogen/Creatinine [Mass ratio] 5.4 mg/mg Normal [facility] Comment on above: Performed By: #### C MP #### [facility] [address] [address] [address] Steve Valentin CBC AUTO DIFFon 12-30-2021 BASO # 0.0 103/ul Normal 0.0-0.1 [facility] Comment on above: Performed By: #### C BC #### [facility] [address] [place] [address] Dr. Steve Valentin Basophils/100 WBC (Bld) 0.5 % Normal 0.2-2.[address] [facility] Comment on above: Performed By: #### C BC #### [facility] [address] [place] [address] Dr. Steve Valentin EO # 0.1 103/ul Normal 0.0-0.7 [facility] Comment on above: Performed By: #### C BC #### [facility] [address] [place] [address] Dr. Steve Valentin Eosinophils/100 WBC (Bld) 3.2 % Normal 0.9-7.0 [facility] Comment on above: Performed By: #### C BC #### [facility] [address] [place] [address] Dr. Steve Valentin Erythrocyte distribution width (RBC) [Ratio] 14.0 % Normal 11.0-15.0 [facility] Comment on above: Performed By: #### C BC #### [facility] [address] [place] [address] Dr. Steve Valentin Hematocrit (Bld) [Volume fraction] 38.3 % Normal 36.0-48.0 [facility] Comment on above: Performed By: #### C BC #### [facility] [address] [place] [address] Dr. Steve Valentin Hemoglobin (Bld) [Mass/Vol] 11.7 g/dL Critically low 12.0-16.0 [facility] Comment on above: Performed By: #### C BC #### [facility] [address] [place] [address] Dr. Steve Valentin IG # 0.01 10e3/ul Normal 0.00-0.03 [facility] Comment on above: Performed By: #### C BC #### [facility] [address] [place] [address] Dr. Steve Valentin IG % 0.2 % Normal 0.0-0.5 [facility] Comment on above: Performed By: #### C BC #### [facility] [address] [place] [address] Dr. tSeve Valentin LYMPH # 1.3 103/ul Normal 1.2-3.8 [facility] Comment on above: Performed By: #### C BC #### [facility] [address] [place] [address] Dr. Steve Valentin Lymphocytes/100 WBC (Bld) 29.6 % Normal 20.5-60.0 [facility] Comment on above: Performed By: #### C BC #### [facility] [address] [place] [address] Dr. Steve Valentin MANUAL DIFF REQ NO Normal [facility] Comment on above: Performed By: #### C BC #### [facility] [address] [place] [address] Dr. Steve Valentin MCH (RBC) [Entitic mass] 26.0 pg Critically low 26.7-34 .0 [facility] Comment on above: Performed By: #### C BC #### [facility] [address] [place] [address] Dr. Steve Valentin MCHC (RBC) [Mass/Vol] 30.5 g/dL Normal 29.9-35.2 [facility] Comment on above: Performed By: #### C BC #### [facility] [address] [place] [address] Dr. Steve Valentin MCV (RBC) [Entitic vol] 85.1 fL Normal 81.0-99.[address] [facility] Comment on above: Performed By: #### C BC #### [facility] [address] [place] [address] Dr. Steve Valentin MONO # 0.5 103/ul Normal 0.3-0.8 [facility] Comment on above: Performed By: #### C BC #### [facility] [address] [place] [address] Dr. Steve Valentin Monocytes/100 WBC (Bld) 10.6 % Normal 1.7-12.[address] [facility] Comment on above: Performed By: #### C BC #### [facility] [address] [place] [address] Dr. Steve Valentin NEUT # 2.4 103/ul Normal 1.4-6.5 [facility] Comment on above: Performed By: #### C BC #### [facility] [address] [place] [address] Dr. Steve Valentin Neutrophils/100 WBC (Bld) 55.9 % Normal 43.0-75.0 [facility] Comment on above: Performed By: #### C BC #### [facility] [address] [place] [address] Dr. Steve Valentin Platelet mean volume (Bld) [Entitic vol] 10.0 fL Normal 9.5-13.5 [facility] Comment on above: Performed By: #### C BC #### [facility] [address] [place] [address] Dr. Steve Valentin PLT 169 103/ul Normal 150-450 [facility] Comment on above: Performed By: #### C BC #### [facility] [address] [place] [address] Dr. Steve Valentin RBC 4.50 106/ul Normal 4.20-5.40 [facility] Comment on above: Performed By: #### C BC #### [facility] [address] [place] [address] Dr. Steve Valentin WBC 4.4 103/ul Normal 4.0-11.0 [facility] Comment on above: Performed By: #### C BC #### [facility] [address] [place] [address] Dr. Steve Valentin BASO # 0.0 103/ul Normal 0.0-0.1 [facility] Comment on above: Performed By: #### C BC #### [facility] [address] [place] [address] Dr. Steve Valentin Basophils/100 WBC (Bld) 0.4 % Normal 0.2-2.[address] [facility] Comment on above: Performed By: #### C BC #### [facility] [address] [place] [address] Dr. Steve Valentin EO # 0.2 103/ul Normal 0.0-0.7 [facility] Comment on above: Performed By: #### C BC #### [facility] [address] [place] [address] Dr. Steve Valentin Eosinophils/100 WBC (Bld) 2.6 % Normal 0.9-7.0 [facility] Comment on above: Performed By: #### C BC #### [facility] [address] [place] [address] Dr. Steve Valentin Erythrocyte distribution width (RBC) [Ratio] 13.9 % Normal 11.0-15.0 [facility] Comment on above: Performed By: #### C BC #### [facility] [address] [place] [address] Dr. Steve Valentin Hematocrit (Bld) [Volume fraction] 39.1 % Normal 36.0-48.0 [facility] Comment on above: Performed By: #### C BC #### [facility] [address] [place] [address] Dr. Steve Valentin Hemoglobin (Bld) [Mass/Vol] 12.3 g/dL Normal 12.0-16.0 [facility] Comment on above: Performed By: #### C BC #### [facility] [address] [place] [address] Dr. Steve Valentin IG # 0.02 10e3/ul Normal 0.00-0.03 [facility] Comment on above: Performed By: #### C BC #### [facility] [address] [place] [address] Dr. Steve Valentin IG % 0.4 % Normal 0.0-0.5 [facility] Comment on above: Performed By: #### C BC #### [facility] [address] [place] [address] Dr. Steve Valentin LYMPH # 1.1 103/ul Critically low 1.2-3.8 [facility] Comment on above: Performed By: #### C BC #### [facility] [address] [place] [address] Dr. Steve Valentin Lymphocytes/100 WBC (Bld) 18.9 % Critically low 20.5-60.0 [facility] Comment on above: Performed By: #### C BC #### [facility] [address] [place] [address] Dr. Steve Valentin MANUAL DIFF REQ NO Normal [facility] Comment on above: Performed By: #### C BC #### [facility] [address] [place] [address] Dr. Steve Valentin MCH (RBC) [Entitic mass] 26.3 pg Critically low 26.7-34 .0 [facility] Comment on above: Performed By: #### C BC #### [facility] [address] [place] [address] Dr. Steve Valentin MCHC (RBC) [Mass/Vol] 31.5 g/dL Normal 29.9-35.2 [facility] Comment on above: Performed By: #### C BC #### [facility] [address] [place] [address] Dr. Steve Valentin MCV (RBC) [Entitic vol] 83.7 fL Normal 81.0-99.[address] [facility] Comment on above: Performed By: #### C BC #### [facility] [address] [place] [address] Dr. Steve Valentin MONO # 0.6 103/ul Normal 0.3-0.8 [facility] Comment on above: Performed By: #### C BC #### [facility] [address] [place] [address] Dr. Steve Valentin Monocytes/100 WBC (Bld) 10.0 % Normal 1.7-12.[address] [facility] Comment on above: Performed By: #### C BC #### [facility] [address] [place] [address] Dr. Steve Valentin NEUT # 3.9 103/ul Normal 1.4-6.5 [facility] Comment on above: Performed By: #### C BC #### [facility] [address] [place] [address] Dr. Steve Valentin Neutrophils/100 WBC (Bld) 67.7 % Normal 43.0-75.0 [facility] Comment on above: Performed By: #### C BC #### [facility] [address] [place] [address] Dr. Steve Valentin Platelet mean volume (Bld) [Entitic vol] 10.0 fL Normal 9.5-13.5 [facility] [place] [facility] Comment on above: Performed By: #### C BC #### [facility] [address] [place] [address] Dr. Steve Valentin PLT 200 103/ul Normal 150-450 [facility] Comment on above: Performed By: #### C BC #### [facility] [address] [place] [address] Dr. Steve Valentin RBC 4.67 106/ul Normal 4.20-5.40 [facility] Comment on above: Performed By: #### C BC #### [facility] [address] [place] [address] Dr. Steve Valentin WBC 5.7 103/ul Normal 4.0-11.0 [facility] Comment on above: Performed By: #### C BC #### [facility] [address] [place] [address] ABD/PELV W CONon [...] LO COSTA Date: 2021-12-30 08:30 Normal [facility] [place] [facility] SARS-CoV-2 (COVID-19) RNA RADHA+probe Ql (Unsp spec) Not detected Normal NOT DETECTED [facility] Comment on above: Result Comment: [...] for this test is supported by the [employer]ertil[employer] Servicer of Health and Human Service's declaration that [...] used). Performed By: #### C VDTBH #### [facility] [address] [place] [address] Dr. Steve Valentin DIRECT COOMBSon 12-30-2021 DIRECT AMARJIT Negative Normal [facility] Comment on above: Performed By: #### C MP, HSTROPN #### [facility] [address] [address] [address] Steve Valentin LACTATE/LACTIC ACIDon 2021 Lactate [Moles/Vol] 1.2 mmol/L Normal 0.4-1.9 [facility] Comment on above: Performed By: #### L ACT #### [facility] [address] [address] [address] Steve Valentin PROF 14(COMP METB)on 022 Albumin [Mass/Vol] 3.4 g/dL Normal 3.4-5.0 [facility] Comment on above: Performed By: #### C MP, HSTROPN #### [facility] [address] [address] [address] Steve Valentin Albumin/Globulin [Mass ratio] 1.1 {ratio} Normal [facility] Comment on above: Performed By: #### C MP, HSTROPN #### [facility] [address] [address] [address] Steve Valentin ALP [Catalytic activity/Vol] 66 U/L Normal 46-116 [facility] Comment on above: Performed By: #### C MP, HSTROPN #### [facility] [address] [address] [address] Steve Valentin ALT [Catalytic activity/Vol] 18 U/L Normal 14-59 [facility] Comment on above: Performed By: #### C MP, HSTROPN #### [facility] [address] [address] [address] Steve Valentin Anion gap [Moles/Vol] 9.1 mmol/L Normal [facility] Comment on above: Performed By: #### C MP, HSTROPN #### [facility] [address] [address] [address] Steve Valentin AST [Catalytic activity/Vol] 14 U/L Critically low 15-37 [facility] Comment on above: Performed By: #### C MP, HSTROPN #### [facility] [address] [address] [address] Steve Valentin Bilirubin [Mass/Vol] 0.3 mg/dL Normal 0.2-1.0 [facility] Comment on above: Performed By: #### C MP, HSTROPN #### [facility] [address] [address] [address] Steve Valentin Calcium [Mass/Vol] 9.2 mg/dL Normal 8.5-10.1 [facility] Comment on above: Performed By: #### C MP, HSTROPN #### [facility] [address] [place] [address] Dr. Steve Valentin Chloride [Moles/Vol] 104 mmol/L Normal 98-107 [facility] Comment on above: Performed By: #### C MP, HSTROPN #### [facility] [address] [place] [address] Dr. Steve Valentin CO2 [Moles/Vol] 25.5 mmol/L Normal 21.0-32.0 [facility] Comment on above: Performed By: #### C MP, HSTROPN #### [facility] [address] [place] [address] Dr. Steve Valentin Creatinine [Mass/Vol] 0.94 mg/dL Normal 0.55-1.02 [facility] Comment on above: Performed By: #### C MP, HSTROPN #### [facility] [address] [place] [address] Dr. Steve Valentin EGFR-AF LUXEMBOURGER >60 Normal >=60 [facility] Comment on above: Performed By: #### C MP, HSTROPN #### [facility] [address] [place] [address] Dr. Steve Valentin EGFR-NON AF LUXEMBOURGER >60 Normal >=60 [facility] Comment on above: Performed By: #### C MP, HSTROPN #### [facility] [address] [place] [address] Dr. Steve Valentin Globulin (S) [Mass/Vol] 3.1 g/dL Normal [facility] Comment on above: Performed By: #### C MP, HSTROPN #### [facility] [address] [place] [address] Dr. Steve Valentin Glucose [Mass/Vol] 98 mg/dL Normal 74-106 [facility] Comment on above: Performed By: #### C MP, HSTROPN #### [facility] [address] [place] [address] Dr. Steve Valentin Potassium [Moles/Vol] 3.6 mmol/L Normal 3.5-5.1 [facility] Comment on above: Performed By: #### C MP, HSTROPN #### [facility] [address] [address] [address] Steve Valentin Protein [Mass/Vol] 6.5 g/dL Normal 6.4-8.2 [facility] Comment on above: Performed By: #### C TABBY, HSTROPN #### [facility] [address] [place] [address] Dr. Steve Valentin Sodium [Moles/Vol] 135 mmol/L Critically low 136-145 [facility] Comment on above: Performed By: #### C MP, HSTROPN #### [facility] [address] [place] [address] Dr. Steve Valentin Urea nitrogen [Mass/Vol] 11.0 mg/dL Normal 7.0-18.0 [facility] Comment on above: Performed By: #### C TABBY, HSTROPN #### [facility] [address] [place] [address] Dr. Steve Valentin Urea nitrogen/Creatinine [Mass ratio] 11.7 mg/mg Normal [facility] Comment on above: Performed By: #### C MP, HSTROPN #### [facility] [address] [place] [address] Dr. Steve Valentin TROPONIN, HIGH SENSITIVITYon 12-30-2021 HSTROP 8.6 pg/mL Normal 4.0-51.3 [facility] Comment on above: Result Comment: CUT- OFF POINTS HAVE BEEN ESTABLISHED BASED ON THE FOURTH UNIVERSAL DEFINITIONS OF MYOCARDIAL INFARCTION. THE UPPER REFERENCE LIMIT (URL) OF TROPONIN, DEFINED THE 99TH PERCENTILE OF cTnI DISTRIBUTION IN A REFERENCE POPULATION, HAS BEEN CONFIRMED THE DECISION THRESHOLD FOR LA DIAGNOSIS. Performed By: #### C MP, HSTROPN #### [facility] [address] [place], [place] [address] Dr. Steve Valentin TYPE AND SCREENon 12-30-2021 TYPE AND SCREEN Positive Normal [facility] Comment on above: Performed By: #### T NS #### [facility] [address] [place], [place] [address] Dr. Steve Valentin XR CERVICAL SPINE (2-3 [...] MD 01/20/20 Final result Normal [facility] Multilevel degenerative changes [place], [place] EXAMINATION: XRAY VIEWS OF THE CERVICAL [...] dislocation or significant prevertebral soft tissue swelling [place], [place] [employer], [employer] Incoming Radiant Results From [employer] - 01/20/2020 11:34 AM EDT EXAMINATION: XRAY [...] soft tissue swelling IMPRESSION: Multilevel degenerative changes [place], [place] XR LUMBAR SPINE (2-3 VIEWS)o n [...] MD 01/20/20 Final result Normal [facility] No acute abnormality lumbosacral spine. Degenerative findings most severe at L5-S1, with evidence DDD. [place], [place] EXAMINATION: THREE XRAY VIEWS OF THE [...] Large amount of retained stool right colon. [place], [place] [employer], [employer] Incoming Radiant Results From [employer] - 01/20/2020 12:11 PM EDT EXAMINATION: THREE [...] most severe at L5-S1, with evidence DDD. [place], [place] Hematologyon 01-25-2018 Basophils Auto #/vol (Bld) 0.7 % Invalid Interpretation Code [facility] Basophils/100 WBC Auto (Bld) 0.0 K/uL Invalid Interpretation Code 0.0-0.1 [facility] Eosinophils/100 WBC Auto (Bld) 3.2 % Invalid Interpretation Code [facility] Erythrocyte distribution width Auto Ratio (RBC) 14.2 % Invalid Interpretation Code 10.8-14.8 [facility] Hematocrit Auto Volume Fraction (Bld) 34.70 % Invalid Interpretation Code 36.0-48.0 [facility] Hemoglobin S Solubility test Ql (Bld) 11.7 Invalid Interpretation Code 12.0-16.0 [facility] Lymphocytes/100 WBC Auto (Bld) 43.3 % Invalid Interpretation Code [facility] MCH Auto Entitic mass (RBC) 27.1 pg Invalid Interpretation Code 27.0-34.0 [facility] MCHC Auto mass conc (RBC) 33.7 g/dL Invalid Interpretation Code 31.0-36.0 [facility] MCV Auto Entitic volume (RBC) 80.5 fL Invalid Interpretation Code 80.-100. [facility] Monocytes/100 WBC Auto (Bld) 6.5 % Invalid Interpretation Code [facility] Neutrophils/100 WBC Auto (Bld) 46.1 % Invalid Interpretation Code [facility] Nucleated RBC/100 WBC Ratio (Bld) 0.1 10*3/uL Invalid Interpretation Code 0.1-0.4 [facility] Nucleated RBC/100 WBC Ratio (Bld) 1.9 10*3/uL Invalid Interpretation Code 0.8-5.2 [facility] Nucleated RBC/100 WBC Ratio (Bld) 0.3 10*3/uL Invalid Interpretation Code 0.1-0.9 [facility] Nucleated RBC/100 WBC Ratio (Bld) 2.0 10*3/uL Invalid Interpretation Code 1.3-9.1 [facility] RBC Auto #/vol (Bld) 4.310 10*6/uL Invalid Interpretation Code 4.00-5.50 [facility] Metabolic Panelon 01-25-2018 Albumin mass conc 4.10 g/dL Invalid Interpretation Code 3.5-5.2 [facility] ALP enzyme act/vol 50 U/L Invalid Interpretation Code 30-111 [facility] ALT enzyme act/vol 14 U/L Invalid Interpretation Code 5-40 [facility] Anion gap 3 molar conc 12 mmol/L Invalid Interpretation Code 10-19 [facility] AST enzyme act/vol 13 U/L Invalid Interpretation Code 9-40 [facility] Calcium mass conc 9.90 mg/dL Invalid Interpretation Code 8.5-10.5 [facility] Chloride molar conc 103 mmol/L Invalid Interpretation Code 95-107 [facility] CO2 molar conc 28 mmol/L Invalid Interpretation Code 19-31 [facility] Creatinine mass conc 1.0 mg/dL Invalid Interpretation Code 0.6-1.3 [facility] Glucose mass conc 89 mg/dL Invalid Interpretation Code 70-99 [facility] Potassium molar conc 4.30 mmol/L Invalid Interpretation Code 3.5-5.4 [facility] Protein mass conc 6.0 g/dL Invalid Interpretation Code 6.1-8.3 [facility] Protein mass conc 0.59 g/dL Invalid Interpretation Code <0.5 [facility] Sodium molar conc 143 mmol/L Invalid Interpretation Code 135-146 [facility] Urea nitrogen mass conc 14.0 mg/dL Invalid Interpretation Code 8-23 [facility] Otheron 01-25-2018 Bilirubin Ql (U) 0.2 Invalid Interpretation Code <1.3 [facility] WBC LM Ql (Sput) 4.4 Invalid Interpretation Code 3.7-10.8 [facility] 74.5 Invalid Interpretation Code >59 [facility] 237 Invalid Interpretation Code 150.-450. [facility] 15 Invalid Interpretation Code 0-30 [facility] 64.3 Invalid Interpretation Code >59 [facility] Thyroidon 01-25-2018 T4 free mass conc 1.140 ng/dL Invalid Interpretation Code 0.80-1.90 [facility] Thyrotropin Qn 1.750 uIU/mL Invalid Interpretation Code 0.400-4.10 0 [facility] Progress Noteon 10-23-2017 HIM IP Note OR Dimension [employer]arry Supervisor Normal [facility] HIM IP Note OR [employer] Supervisor Normal [facility] Otheron 09-20-2017 3 Invalid Interpretation Code [facility] 3 Invalid Interpretation Code [facility] Cardiacon 09-14-2017 Cholesterol 220 mg/dL Invalid Interpretation Code <200 [facility] HDL Cholesterol 77.0 mg/dL Invalid Interpretation Code >39 [facility] Triglyceride 113.0 mg/dL Invalid Interpretation Code <150 [facility] Hematologyon 09-14-2017 Basophils Auto #/vol (Bld) 1.0 % Invalid Interpretation Code [facility] Basophils/100 WBC Auto (Bld) 0.1 K/uL Invalid Interpretation Code 0.0-0.1 [facility] Eosinophils/100 leukocytes 2.9 % Invalid Interpretation Code [facility] Erythrocyte distribution width Auto Ratio (RBC) 14.1 % Invalid Interpretation Code 10.8-14.8 [facility] Erythrocytes (RBC) 4.230 10*6/uL Invalid Interpretation Code 4.00-5.50 [facility] Hematocrit (HCT) 37.0 % Invalid Interpretation Code 36.0-48.0 [facility] Hemoglobin S presence 11.7 Invalid Interpretation Code 12.0-16.0 [facility] Lipoprotein a mass conc 0.2 10*3/uL Invalid Interpretation Code 0.1-0.4 [facility] Lipoprotein a mass conc 2.0 10*3/uL Invalid Interpretation Code 0.8-5.2 [facility] Lipoprotein a mass conc 0.5 10*3/uL Invalid Interpretation Code 0.1-0.9 [facility] Lipoprotein a mass conc 2.6 10*3/uL Invalid Interpretation Code 1.3-9.1 [facility] Lymphocytes/100 leukocytes 37.6 % Invalid Interpretation Code [facility] MCH 27.7 pg Invalid Interpretation Code 27.0-34.0 [facility] MCHC mass conc (RBC) 31.6 g/dL Invalid Interpretation Code 31.0-36.0 [facility] MCV 87.5 fL Invalid Interpretation Code 80.-100. [facility] Monocytes/100 leukocytes 8.8 % Invalid Interpretation Code [facility] Neutrophils/100 leukocytes 49.5 % Invalid Interpretation Code [facility] WBC (Leukocytes) 5.2 10*3/uL Invalid Interpretation Code 3.7-10.8 [facility] Otheron 09-14-2017 Cholesterol crystals Infrared spectroscopy Ql (Stone) 220 mg/dL Invalid Interpretation Code <200 [facility] Cholesterol to HDL Ratio 2.9 {ratio} Invalid Interpretation Code <5 [facility] LDL to HDL Ratio 1.6 Invalid Interpretation Code <3.5 [facility] Quench Lipoprotein.beta/Lipopro tein.alpha mass ratio 1.6 Invalid Interpretation Code <3.5 [facility] PreB-LP SerPl-mCnc 23.0 mg/dL Invalid Interpretation Code <30 [facility] PreB-LP SerPl-mCnc 120.0 mg/dL Invalid Interpretation Code <130 [facility] WBC LM Ql (Sput) 5.2 Invalid Interpretation Code 3.7-10.8 [facility] Quench 298 Invalid Interpretation Code 150.-450. [facility] Thyroidon 09-14-2017 Thyroid stimulating hormone (TSH) 2.270 uIU/mL Invalid Interpretation Code 0.40-4.10 [facility] Thyroxine (T4) free 0.990 ng/dL Invalid Interpretation Code 0.80-1.90 [facility] Vital Signs Date Time Vital Sign Value Performing Clinician Ni barnard 01-31-2024 14:17-0400 Body mass index (BMI) [Ratio] 62.69 kg/m2 Erica Siddiquitrick ANALYTICAL DATA SCIENTIST Work Phone: [facility] 01-31-2024 14:17-0400 Body temperature 97.2 [degF] Erica Siddiquitrick ANALYTICAL DATA SCIENTIST Work Phone: [facility] 01-31-2024 14:17-0400 Body weight 145.6 kg Erica Siddiquitrick ANALYTICAL DATA SCIENTIST Work Phone: [facility] 01-31-2024 14:17-0400 Diastolic blood pressure 80 mm[Hg] Erica Menonpatrick ANALYTICAL DATA SCIENTIST Work Phone: [facility] 01-31-2024 14:17-0400 Heart rate 57 /min Erica Siddiquitrick ANALYTICAL DATA SCIENTIST Work Phone: [facility] 01-31-2024 14:17-0400 SaO2% (BldA) [Mass fraction] 94 % Erica Siddiquitrick ANALYTICAL DATA SCIENTIST Work Phone: [facility] 01-31-2024 14:17-0400 Systolic blood pressure 152 mm[Hg] Erica Menonpatrick ANALYTICAL DATA SCIENTIST Work Phone: [facility] 01-15-2024 14:38-0400 Diastolic blood pressure 74 mm[Hg] Hanane Courtneyasi WAFER FAB TECHNICIAN-COSMETOLOGY EDUCATOR Work Phone: [facility] 01-15-2024 14:38-0400 Heart rate 68 /min Hanane Valdezasi WAFER FAB TECHNICIAN-COSMETOLOGY EDUCATOR Work Phone: [facility] 01-15-2024 14:38-0400 Systolic blood pressure 130 mm[Hg] Hanane BARRERA Work Phone: [facility] 01-15-2024 14:36-0400 Body mass index (BMI) [Ratio] 64.25 kg/m2 Hanane BARRERA Work Phone: [facility] 01-15-2024 14:36-0400 Body weight 149.23 kg Hanane BARRERA Work Phone: [facility] 01-15-2024 14:36-0400 SaO2% (BldA) [Mass fraction] 96 % Hanane BARRERA Work Phone: [facility] 11-29-2023 08:53-0400 Body height 152.[address] [facility] 11-29-2023 08:53-0400 Body mass index (BMI) [Ratio] 65.27 kg/m2 Pfo [address] [facility] 11-29-2023 08:53-0400 Body temperature 97.39 [degF] Pfo 1 [facility] 11-29-2023 08:53-0400 Body weight 151.[address] [facility] 11-29-2023 08:53-0400 Diastolic blood pressure 73 mm[Hg] Pfo [address] [facility] 11-29-2023 08:53-0400 Heart rate 73 /min Pfo [address] [facility] 11-29-2023 08:53-0400 Respiratory rate 21 /min Pfo 1 [facility] 11-29-2023 08:53-0400 SaO2% (BldA) [Mass fraction] 99 % Pfo [address] [facility] 11-29-2023 08:53-0400 Systolic blood pressure 142 mm[Hg] Pfo 1 [facility] 10-18-2023 21:58-0400 Heart rate 75 /min Isma Hayward MD Work Phone: [facility] [employer] 10-18-2023 21:58-0400 Respiratory rate 18 /min Isma Hayward MD Work Phone: [facility] 10-18-2023 21:48-0400 SaO2% (BldA) [Mass fraction] 94 % Isma Hayward MD Work Phone: [facility] 10-18-2023 19:27-0400 Body temperature 98.1 [degF] Isma Hayward MD Work Phone: [facility] 10-18-2023 19:27-0400 Diastolic blood pressure 77 mm[Hg] Isma Hayward MD Work Phone: [facility] 10-18-2023 19:27-0400 Systolic blood pressure 137 mm[Hg] Isma Hayward MD Work Phone: [facility] 10-18-2023 03:45-0400 Body mass index (BMI) [Ratio] 64.86 kg/m2 Isma Hayward MD Work Phone: [facility] 10-18-2023 03:45-0400 Body weight 150.64 kg Isma Hayward MD Work Phone: [facility] 10-16-2023 12:10-0400 Body height 152.4 cm Isma Hayward MD Work Phone: [facility] 02-13-2018 13:08-0400 BMI (Body Mass Index) 56.47 kg/m2 [facility] 02-13-2018 13:08-0400 Body Temperature 98 [degF] [facility] 02-13-2018 13:08-0400 BP Diastolic 80 mm[Hg] [facility] 02-13-2018 13:08-0400 BP Systolic 124 mm[Hg] [facility] 02-13-2018 13:08-0400 BSA (Body Surface Area) 2.39 m2 Leda Agrawal [facility] 02-13-2018 13:08-0400 Height 153.67 cm [facility] 02-13-2018 13:08-0400 Pulse (Heart Rate) 74 /min Leda Tanja [facility] 02-13-2018 13:08-0400 Pulse Oximetry 97 % [facility] 02-13-2018 13:08-0400 Respiratory Rate 20 /min [facility] 02-13-2018 13:08-0400 Weight 133.36 kg [facility] 02-13-2018 10:08-0400 Body height 153.67 cm Leda Agrawal CNP Work Phone: [facility] Work Phone: 02-13-2018 10:08-0400 Body mass index (BMI) [Ratio] 56.5 kg/m2 Leda Agrawal CNP Work Phone: [facility] Work Phone: 02-13-2018 10:08-0400 Body surface area Derived from formula 2.21 m2 Leda Agrawal CNP Work Phone: [facility] Work Phone: 02-13-2018 10:08-0400 Body temperature 98 [degF] Leda Agrawal CNP Work Phone: [facility] Work Phone: 02-13-2018 10:08-0400 Body weight 133.36 kg Leda Agrawal CNP Work Phone: [facility] Work Phone: 02-13-2018 10:08-0400 Diastolic blood pressure 80 mm[Hg] Leda Agrawal CNP Work Phone: [facility] Work Phone: 02-13-2018 10:08-0400 Heart rate 74 /min Leda Agrawal CNP Work Phone: [facility] Work Phone: 02-13-2018 10:08-0400 Respiratory rate 20 /min Leda Agrawal CNP Work Phone: [facility] Work Phone: 02-13-2018 10:08-0400 Systolic blood pressure 124 mm[Hg] Leda Agrawal CNP Work Phone: [facility] Work Phone: 01-25-2018 12:47-0400 BMI (Body Mass Index) 56.47 kg/m2 [facility] 01-25-2018 12:47-0400 Body Temperature 98.4 [degF] [facility] 01-25-2018 12:47-0400 BP Diastolic 82 mm[Hg] [facility] 01-25-2018 12:47-0400 BP Systolic 122 mm[Hg] [facility] 01-25-2018 12:47-0400 BSA (Body Surface Area) 2.39 m2 [facility] 01-25-2018 12:47-0400 Height 153.67 cm [facility] 01-25-2018 12:47-0400 Pulse (Heart Rate) 73 /min [facility] 01-25-2018 12:47-0400 Pulse Oximetry 96 % [facility] 01-25-2018 12:47-0400 Respiratory Rate 18 /min [facility] 01-25-2018 12:47-0400 Weight 133.36 kg Leda Agrawal [facility] 01-25-2018 09:47-0400 Body height 153.67 cm Leda Agrawal CNP Work Phone: [facility] Work Phone: 01-25-2018 09:47-0400 Body mass index (BMI) [Ratio] 56.5 kg/m2 Leda Agrawal CNP Work Phone: [facility] Work Phone: 01-25-2018 09:47-0400 Body surface area Derived from formula 2.21 m2 Leda Agrawal CNP Work Phone: [facility] Work Phone: 01-25-2018 09:47-0400 Body temperature 98.4 [degF] Leda Agrawal CNP Work Phone: [facility] Work Phone: 01-25-2018 09:47-0400 Body weight 133.36 kg Leda Agrawal CNP Work Phone: [facility] Work Phone: 01-25-2018 09:47-0400 Diastolic blood pressure 82 mm[Hg] Leda Agrawal CNP Work Phone: [facility] Work Phone: 01-25-2018 09:47-0400 Heart rate 73 /min Leda Agrawal CNP Work Phone: [facility] Work Phone: 01-25-2018 09:47-0400 Respiratory rate 18 /min Leda Agrawal CNP Work Phone: [facility] Work Phone: 01-25-2018 09:47-0400 Systolic blood pressure 122 mm[Hg] Leda Agrawal CNP Work Phone: [facility] Work Phone: 11-14-2017 18:20-0400 BMI (Body Mass Index) 56.47 kg/m2 [facility] 11-14-2017 18:20-0400 Body Temperature 97.4 [degF] [facility] 11-14-2017 18:20-0400 BP Diastolic 80 mm[Hg] [facility] 11-14-2017 18:20-0400 BP Systolic 130 mm[Hg] [facility] 11-14-2017 18:20-0400 BSA (Body Surface Area) 2.39 m2 [facility] 11-14-2017 18:20-0400 Height 153.67 cm [facility] 11-14-2017 18:20-0400 Pulse (Heart Rate) 96 /min [facility] 11-14-2017 18:20-0400 Pulse Oximetry 95 % [facility] 11-14-2017 18:20-0400 Respiratory Rate 18 /min [facility] 11-14-2017 18:20-0400 Weight 133.36 kg [facility] 11-14-2017 15:20-0400 Body height 153.67 cm [facility] COSMETOLOGY EDUCATOR Work Phone: [facility] Work Phone: 11-14-2017 15:20-0400 Body mass index (BMI) [Ratio] 56.5 kg/m2 [facility] COSMETOLOGY EDUCATOR Work Phone: [facility] Work Phone: 11-14-2017 15:20-0400 Body surface area Derived from formula 2.21 m2 Leda Agrawal CNP Work Phone: [facility] Work Phone: 11-14-2017 15:20-0400 Body temperature 97.4 [degF] Leda Agrawal CNP Work Phone: [facility] Work Phone: 11-14-2017 15:20-0400 Body weight 133.36 kg Leda Agrawal CNP Work Phone: [facility] Work Phone: 11-14-2017 15:20-0400 Diastolic blood pressure 80 mm[Hg] Leda Agrawal CNP Work Phone: [facility] Work Phone: 11-14-2017 15:20-0400 Heart rate 96 /min Leda Agrawal CNP Work Phone: [facility] Work Phone: 11-14-2017 15:20-0400 Respiratory rate 18 /min Leda Agrawal CNP Work Phone: [facility] Work Phone: 11-14-2017 15:20-0400 Systolic blood pressure 130 mm[Hg] Leda Agrawal CNP Work Phone: [facility] Work Phone: 10-12-2017 11:11-0400 BMI (Body Mass Index) 57.12 kg/m2 Leda Agrawal [facility] 10-12-2017 11:11-0400 Body Temperature 98.8 [degF] Leda Agrawal [facility] 10-12-2017 11:11-0400 BP Diastolic 83 mm[Hg] Leda Agrawal [facility] 10-12-2017 11:11-0400 BP Systolic 122 mm[Hg] Leda Agrawal [facility] 10-12-2017 11:11-0400 BSA (Body Surface Area) 2.4 m2 [facility] 10-12-2017 11:11-0400 Height 153.67 cm [facility] 10-12-2017 11:11-0400 Pulse (Heart Rate) 79 /min [facility] 10-12-2017 11:11-0400 Pulse Oximetry 99 % [facility] 10-12-2017 11:11-0400 Respiratory Rate 18 /min [facility] 10-12-2017 11:11-0400 Weight 134.89 kg [facility] 10-12-2017 10:11-0400 BMI (Body Mass Index) 57.12 kg/m2 [facility] 10-12-2017 10:11-0400 Body Temperature 98.8 [degF] [facility] 10-12-2017 10:11-0400 BP Diastolic 83 mm[Hg] [facility] 10-12-2017 10:11-0400 BP Systolic 122 mm[Hg] [facility] 10-12-2017 10:11-0400 BSA (Body Surface Area) 2.4 m2 [facility] 10-12-2017 10:11-0400 Height 153.67 cm [facility] 10-12-2017 10:11-0400 Pulse (Heart Rate) 79 /min [facility] 10-12-2017 10:11-0400 Pulse Oximetry 99 % Leda Agrawal [facility] 10-12-2017 10:11-0400 Respiratory Rate 18 /min Leda Agrawal [facility] 10-12-2017 10:11-0400 Weight 134.89 kg Leda Agrawal [facility] 10-12-2017 08:11-0400 Body height 153.67 cm Leda Agrawal CNP Work Phone: [facility] Work Phone: 10-12-2017 08:11-0400 Body mass index (BMI) [Ratio] 57 kg/m2 Leda Agrawal CNP Work Phone: [facility] Work Phone: 10-12-2017 08:11-0400 Body surface area Derived from formula 2.22 m2 Leda Agrawal CNP Work Phone: [facility] Work Phone: 10-12-2017 08:11-0400 Body temperature 98.8 [degF] Leda Agrawal CNP Work Phone: [facility] Work Phone: 10-12-2017 08:11-0400 Body weight 134.72 kg Leda Agrawal CNP Work Phone: [facility] Work Phone: 10-12-2017 08:11-0400 Diastolic blood pressure 83 mm[Hg] Leda Agrawal CNP Work Phone: [facility] Work Phone: 10-12-2017 08:11-0400 Heart rate 79 /min Leda Agrawal CNP Work Phone: [facility] Work Phone: 10-12-2017 08:11-0400 Respiratory rate 18 /min Leda Agrawal CNP Work Phone: [facility] Work Phone: 10-12-2017 08:11-0400 Systolic blood pressure 122 mm[Hg] Leda Agrawal [facility] Work Phone: [facility] Work Phone: 09-20-2017 17:04-0400 BP Diastolic 80 mm[Hg] [facility] 09-20-2017 17:04-0400 BP Systolic 136 mm[Hg] [facility] 09-20-2017 16:19-0400 BMI (Body Mass Index) 59.21 kg/m2 [facility] 09-20-2017 16:19-0400 Body Temperature 97.1 [degF] [facility] 09-20-2017 16:19-0400 BP Diastolic 80 mm[Hg] [facility] 09-20-2017 16:19-0400 BP Systolic 142 mm[Hg] [facility] 09-20-2017 16:19-0400 BSA (Body Surface Area) 2.44 m2 [facility] 09-20-2017 16:19-0400 Height 153.67 cm [facility] 09-20-2017 16:19-0400 Pulse (Heart Rate) 94 /min [facility] 09-20-2017 16:19-0400 Pulse Oximetry 96 % [facility] 09-20-2017 16:19-0400 Respiratory Rate 18 /min [facility] 09-20-2017 16:19-0400 Weight 139.82 kg [facility] 09-20-2017 16:04-0400 BP Diastolic 80 mm[Hg] [facility] 09-20-2017 16:04-0400 BP Systolic 136 mm[Hg] [facility] 09-20-2017 15:19-0400 BMI (Body Mass Index) 59.21 kg/m2 [facility] 09-20-2017 15:19-0400 Body Temperature 97.1 [degF] [facility] 09-20-2017 15:19-0400 BP Diastolic 80 mm[Hg] [facility] 09-20-2017 15:19-0400 BP Systolic 142 mm[Hg] [facility] 09-20-2017 15:19-0400 BSA (Body Surface Area) 2.44 m2 [facility] 09-20-2017 15:19-0400 Height 153.67 cm [facility] 09-20-2017 15:19-0400 Pulse (Heart Rate) 94 /min [facility] 09-20-2017 15:19-0400 Pulse Oximetry 96 % [facility] 09-20-2017 15:19-0400 Respiratory Rate 18 /min [facility] 09-20-2017 15:19-0400 Weight 139.82 kg [facility] 09-20-2017 14:04-0400 Diastolic blood pressure 80 mm[Hg] [facility] Work Phone: [facility] Work Phone: 09-20-2017 14:04-0400 Systolic blood pressure 136 mm[Hg] Leda Agrawal CNP Work Phone: [facility] Work Phone: 09-20-2017 13:19-0400 Body height 153.67 cm Leda Agrawal CNP Work Phone: [facility] Work Phone: 09-20-2017 13:19-0400 Body mass index (BMI) [Ratio] 59.2 kg/m2 Leda Agrawal CNP Work Phone: [facility] Work Phone: 09-20-2017 13:19-0400 Body surface area Derived from formula 2.26 m2 Leda Agrawal CNP Work Phone: [facility] Work Phone: 09-20-2017 13:19-0400 Body temperature 97.1 [degF] Leda Agrawal CNP Work Phone: [facility] Work Phone: 09-20-2017 13:19-0400 Body weight 139.71 kg Leda Agrawal CNP Work Phone: [facility] Work Phone: 09-20-2017 13:19-0400 Diastolic blood pressure 80 mm[Hg] Leda Agrawal CNP Work Phone: [facility] Work Phone: 09-20-2017 13:19-0400 Heart rate 94 /min Leda Agrawal CNP Work Phone: [facility] Work Phone: 09-20-2017 13:19-0400 Respiratory rate 18 /min Leda Agrawal CNP Work Phone: [facility] Work Phone: 09-20-2017 13:19-0400 Systolic blood pressure 142 mm[Hg] Leda Agrawal CNP Work Phone: [facility] Work Phone: 09-14-2017 12:35-0400 BMI (Body Mass Index) 59.76 kg/m2 [facility] 09-14-2017 12:35-0400 Body Temperature 97 [degF] [facility] 09-14-2017 12:35-0400 BP Diastolic 72 mm[Hg] [facility] 09-14-2017 12:35-0400 BP Systolic 122 mm[Hg] [facility] 09-14-2017 12:35-0400 BSA (Body Surface Area) 2.45 m2 [facility] 09-14-2017 12:35-0400 Height 153.67 cm [facility] 09-14-2017 12:35-0400 Pulse (Heart Rate) 71 /min [facility] 09-14-2017 12:35-0400 Pulse Oximetry 97 % [facility] 09-14-2017 12:35-0400 Respiratory Rate 18 /min [facility] 09-14-2017 12:35-0400 Weight 141.13 kg [facility] 09-14-2017 11:35-0400 BMI (Body Mass Index) 59.76 kg/m2 [facility] 09-14-2017 11:35-0400 Body Temperature 97 [degF] [facility] 09-14-2017 11:35-0400 BP Diastolic 72 mm[Hg] [facility] 09-14-2017 11:35-0400 BP Systolic 122 mm[Hg] Leda Tanja [facility] 09-14-2017 11:35-0400 BSA (Body Surface Area) 2.45 m2 Leda Tanja [facility] 09-14-2017 11:35-0400 Height 153.67 cm [facility] 09-14-2017 11:35-0400 Pulse (Heart Rate) 71 /min [facility] 09-14-2017 11:35-0400 Pulse Oximetry 97 % [facility] 09-14-2017 11:35-0400 Respiratory Rate 18 /min [facility] 09-14-2017 11:35-0400 [facility] 141.13 [facility] 09-14-2017 09:35-0400 Body height 153.67 cm Leda Agrawal [facility] Work Phone: [facility] Work Phone: 09-14-2017 09:35-0400 Body mass index (BMI) [Ratio] 59.7 kg/m2 Leda Agrawal CNP Work Phone: [facility] Work Phone: 09-14-2017 09:35-0400 Body surface area Derived from formula 2.27 m2 Leda Agrawal CNP Work Phone: [facility] Work Phone: 09-14-2017 09:35-0400 Body temperature 97 [degF] Leda Agrawal COSMETOLOGY EDUCATOR Work Phone: [facility] Work Phone: 09-14-2017 09:35-0400 Body weight 141.07 kg Leda Agrawal CNP Work Phone: [facility] Work Phone: 09-14-2017 09:35-0400 Diastolic blood pressure 72 mm[Hg] Leda Agrawal COSMETOLOGY EDUCATOR Work Phone: [facility] Work Phone: 09-14-2017 09:35-0400 Heart rate 71 /min Leda Agrawal COSMETOLOGY EDUCATOR Work Phone: [facility] Work Phone: 09-14-2017 09:35-0400 Respiratory rate 18 /min Leda Agrawal COSMETOLOGY EDUCATOR Work Phone: [facility] Work Phone: 09-14-2017 09:35-0400 Systolic blood pressure 122 mm[Hg] Leda Agrawal COSMETOLOGY EDUCATOR Work Phone: [facility] Work Phone: Encounters Encounter Date Encounter Type Care Provider Facility Start: 12-06-2024 ambulatory [facility] Start: 12-06-2024 End: 12-06-2024 ambulatory [facility] Start: 11-21-2024 End: 11-21-2024 ambulatory [facility] Start: 11-07-2024 End: 11-07-2024 ambulatory [facility] Start: 10-08-2024 End: 10-08-2024 ambulatory [facility] Start: 05-23-2024 End: 05-23-2024 ambulatory [facility] Start: 05-20-2024 End: 05-20-2024 ambulatory [facility] Start: 05-09-2024 End: 05-09-2024 ambulatory [facility] Start: 03-19-2024 End: 03-19-2024 Telephone encounter Keenan CHAMPION [facility] Start: 02-16-2024 End: 02-16-2024 Refill Janedebra Freemanelka WAFER FAB TECHNICIAN-COSMETOLOGY EDUCATOR Work Phone: [facility] Start: 01-31-2024 End: 01-31-2024 Bamboo flowsheet Erica Pompa ANALYTICAL DATA SCIENTIST Work Phone: [facility] Start: 01-31-2024 End: 01-31-2024 Bamboo flowsheet Erica Pompa ANALYTICAL DATA SCIENTIST Work Phone: [facility] Start: 01-31-2024 End: 01-31-2024 Office outpatient visit 10 minutes Erica Siddiquitrick ANALYTICAL DATA SCIENTIST Work Phone: [facility] Comment on above: Chronic obstructive pulmonary disease with acute exacerbation (CMS/HCC) (Primary Dx); Chronic rhinitis; Bipolar depression ([facility]); ADORE (obstructive sleep apnea); Pulmonary emphysema, unspecified emphysema type ([facility]/HCC) Start: 01-31-2024 End: 01-31-2024 Refill Janedebra Freemanelka WAFER FAB TECHNICIAN-COSMETOLOGY EDUCATOR Work Phone: [facility] Start: 01-31-2024 End: 01-31-2024 ambulatory ERICA POMPA Not Available Start: 01-29-2024 End: 01-29-2024 Refill Erica Pompa ANALYTICAL DATA SCIENTIST Work Phone: [facility] Comment on above: ARSH (generalized anx iety disorder) ([facility]/HCC) Start: 01-29-2024 End: 01-29-2024 Refill Jane L Veselka WAFER FAB TECHNICIAN-COSMETOLOGY EDUCATOR Work Phone: [facility] Start: 01-22-2024 End: 01-22-2024 ambulatory [facility] Start: 01-15-2024 End: 01-15-2024 Office outpatient visit 40 minutes [facility] WAFER FAB TECHNICIAN-COSMETOLOGY EDUCATOR Work Phone: [facility] Comment on above: ERIN (acute kidney in jury) ([facility]) (Primary Dx); 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 ([facility]) ; Hypovitaminosis D; Hypomagnesemia; Primary hypertension; Nephrotic range proteinuria Start: 01-12-2024 End: 01-12-2024 ambulatory [facility] Start: 01-04-2024 End: 01-04-2024 Telephone encounter Scanning Provider External N [facility] Start: 01-02-2024 End: 01-02-2024 Orders Only Shazia La RN [facility] Comment on above: 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 (Primary Dx) Start: 12-19-2023 End: 12-19-2023 [facility] Start: 11-29-2023 End: 11-29-2023 ambulatory [facility] Comment on above: 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 (Primary Dx) Start: 11-14-2023 End: 11-14-2023 Orders Only Shazia La RN [facility] Comment on above: 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 (Primary Dx) Start: 11-13-2023 End: 11-13-2023 Orders Only Shazia La RN [facility] Start: 11-07-2023 End: 11-07-2023 [facility] Comment on above: 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 [facility] Start: 10-14-2023 End: 10-19-2023 Emergency department patient visit ALEXIS Olguin LEXI [facility] Start: 10-14-2023 End: 10-18-2023 Evaluation and management of inpatient NOT IN SYSTEM [facility] Comment on above: ERIN (acute kidney in jury) ([facility]-HCC) (Primary Dx); Hypertensive urgency; Hypokalemia; Elevated brain natriuretic peptide (BNP) level Start: 04-26-2023 End: 04-26-2023 ambulatory LINARES JHONY Not Available Start: 04-15-2022 End: 04-17-2022 ambulatory QUYNH ARCHER Facility:[facility]1 Start: 02-08-2022 End: 02-09-2022 ambulatory NANCI BEEBE Facility:[facility] Start: 12-30-2021 End: 12-31-[address] VU RIVERA Facility:[facility] Start: 01-20-2020 End: 01-23-2020 Patient encounter procedure [facility] Start: 01-20-2020 End: 01-22-2020 Subsequent hospital visit by physician Roman Palacio Dr Room 4 [facility] Comment on above: Chronic bilateral lo w back pain without sciatica Chronic neck pain; Chronic bilateral low back pain without sciatica Start: 07-31-2018 Patient encounter procedure Heath Kirkpatrick Facility:[id number] Start: 07-20-2018 End: 07-20-2018 General Leda Agrawal CNP Work Phone: [facility] Work Phone: Start: 02-13-2018 End: 02-13-2018 Patient encounter procedure Leda Agrawal CNP Work Phone: [facility] Work Phone: Start: 02-13-2018 Office outpatient vi sit 15 minutes Leda Agrawal Other [facility] Start: 01-25-2018 End: 01-25-2018 Patient encounter procedure Leda Agrawal CNP Work Phone: [facility] Work Phone: Start: 01-25-2018 Office outpatient vi sit 15 minutes Leda Agrawal Other [facility] Start: 11-14-2017 Office outpatient vi sit 15 minutes Leda Agrawal Other [facility] Start: 11-14-2017 End: 11-14-2017 Patient encounter procedure Leda Agrawal COSMETOLOGY EDUCATOR Work Phone: [facility] Work Phone: Start: 10-12-2017 End: 10-12-2017 Patient encounter procedure Leda Agrawal COSMETOLOGY EDUCATOR Work Phone: [facility] Work Phone: Start: 10-12-2017 End: 10-12-2017 Office outpatient visit 15 minutes Leda Agrawal Other [facility] Start: 10-12-2017 Polysom 6/>yrs sleep 4/> addl nicky attnd [facility] Start: 10-12-2017 Polysom 6/>yrs sleep w/cpap 4/> [facility] Start: 09-20-2017 End: 09-20-2017 Office outpatient visit 15 minutes Leda Agrawal Other [facility] Start: 09-20-2017 End: 09-20-2017 Patient encounter procedure Leda Agrawal COSMETOLOGY EDUCATOR Work Phone: [facility] Work Phone: Start: 09-14-2017 End: 09-14-2017 Patient encounter procedure Leda Agrawal COSMETOLOGY EDUCATOR Work Phone: [facility] Work Phone: Start: 09-14-2017 Laboratory examinati on, unspecified Leda Agrawal [facility] Start: 09-14-2017 Colonoscopy w/biopsy single/multiple Leda Agrawal [facility] Start: 09-14-2017 Dxa bone density kourtney dy 1/> sites axial skel [facility] Start: 09-14-2017 End: 09-14-2017 Office outpatient new 45 minutes Leda Agrawal Other [facility] Procedures Date Procedure Procedure Detail Performing Clinician Start: 10-19-2023 Adult depression scr eening assessment Shazia La RN Start: 10-18-2023 POCT IONIZED CALCIUM Axel Jewell MD Work Phone: Start: 10-18-2023 Comprehensive metabo lic panel Kristina Travis WAFER FAB TECHNICIAN-Bantr Work Phone: Start: 10-17-2023 Potassium serum plas ma/whole blood Elva Man MD Work Phone: Start: 10-17-2023 Blood occult peroxid ase actv qual feces 1-3 spec Nataliia Cohen WAFER FAB TECHNICIAN-COSMETOLOGY EDUCATOR Work Phone: Start: 10-17-2023 Pulmonary ventilatio n & perfusion imaging Nataliia Cohen WAFER FAB TECHNICIAN-COSMETOLOGY EDUCATOR Work Phone: Start: 10-17-2023 End: 10-17-2023 Comprehensive metabolic panel Kristina Travis WAFER FAB TECHNICIAN-COSMETOLOGY EDUCATOR Work Phone: Start: 10-16-2023 Fibrin dgradj produc [...] wom-mode compl spec&colr d Antione D Krotzer WAFER FAB TECHNICIAN-COSMETOLOGY EDUCATOR Work Phone: Start: 10-16-2023 End: 10-16-2023 Potassium serum plasma/whole blood Dre Jewell MD Work Phone: Start: 10-16-2023 Us retroperitoneal r eal time w/image complete Fran Wild MD Work Phone: Start: 10-16-2023 End: 10-16-2023 Comprehensive metabolic panel Kristina Robles WAFER FAB TECHNICIAN-COSMETOLOGY EDUCATOR Work Phone: Start: 10-16-2023 CLINICAL PATHOLOGY Alhaji Flores MD Work Phone: Start: 10-15-2023 Assay of urine sodium R luna Wild MD Work Phone: Start: 10-15-2023 Urnls dip stick/tabl et rgnt auto w/o microscopy Fran Wild MD Work Phone: Start: 10-15-2023 Antinuclear antibodies saul Fran Wild MD Work Phone: Start: 10-15-2023 Creatine kinase total M uhamid Clua Jewell MD Work Phone: Start: 10-15-2023 FREE LIGHT CHAINS Fran Wild MD Work Phone: Start: 10-15-2023 Iaad ia hepatitis b surface antigen Fran Wild MD Work Phone: Start: 10-15-2023 BIPAP/CPAP/AUTOPAP Antione Hernández Kulwinderdeirdre WAFER FAB TECHNICIAN-COSMETOLOGY EDUCATOR Work Phone: Start: 10-15-2023 Comprehensive metabo lic panel Kristina Robles WAFER FAB TECHNICIAN-COSMETOLOGY EDUCATOR Work Phone: Start: 10-14-2023 Radiologic exam ches t single view Khalid Lexi DO Work Phone: Start: 10-14-2023 Assay of troponin quantitative Khalid Leix DO Work Phone: Start: 10-14-2023 Ecg routine [...] son RN Start: 02-25-2019 Mammography Erica henderson ANALYTICAL DATA SCIENTIST Work Phone: Start: 08-10-2018 Follow-up visit Start: [...] density study 1/> sites axial skel Leda Agrawla Start: 09-14-2017 Lipid panel Leda quach Start: 09-14-2017 Pap not indicated Leda Agrawal Start: 09-14-2017 Physical therapy management Leda Agrawal Start: 09-14-2017 Pt-focused hlth risk assmt score doc stnd instrm Leda Agrawal Start: 09-14-2017 Pulmonology. Leda quach Plan of Treatment Date Care Activity Detail Author Start: 10-13-2029 Screening for malignant neoplasm of colon [facility] Start: 01-14-2025 Adult BMI Screening Adult BMI Screening [facility] Start: 11-28-2024 Adult BMI Screening Adult BMI Screening [facility] Start: 11-28-2024 Tobacco Screening Tobacco Screening [facility] Start: 10-24-2024 Adult BMI Screening Adult BMI Screening [facility] Start: 10-18-2024 Depression Screening Depression Screening [facility] Start: 10-18-2024 Tobacco Screening Tobacco Screening [facility] Start: 10-13-2024 Screening for malignant neoplasm of colon Colonoscopy [facility] Start: 03-25-2024 End: 03-25-2024 Patient encounter procedure 03/25/2024 10:30 AM EST Office Visit N [facility] [address] [place] [id number] Fran Wild MD [address] [place] [address] [facility] Start: 02-06-2024 End: 02-06-2024 Patient encounter procedure 02/06/2024 1:30 PM EDT Office Visit [facility] [address] [place] [phone] Erica Pompa, ANALYTICAL DATA SCIENTIST [address] [place] [phone] [facility] Start: 01-31-2024 End: 01-31-2024 Patient encounter procedure 01/31/2024 2:00 PM EDT Office Visit [facility] [address] [place] [phone] Erica Pompa, ANALYTICAL DATA SCIENTIST [address] [place] [phone] Arrived [facility] Comment on above: Arrived Start: 01-31-2024 End: 01-30-2025 XR Chest 2 Views XR chest 2 views Imaging Routine Chronic obstructive pulmonary disease with acute exacerbation (CMS/HCC) Expected: 01/31/2024, Expires: 01/30/2025 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 Start: 12-06-2023 End: 12-06-2023 ambulatory 12/06/2023 10:00 AM EDT Infusion Sylviajesika Zayas [facility] - [facility] On[facility] [address] [place] [address] Sylvia Zayas [facility] Start: 01-30-2021 COVID-19 Vaccine (2 - Roxanne risk series) COVID-19 Vaccine (2 - Roxanne risk series) [facility] Start: 04-30-2020 End: 04-30-2020 Office Visit 04/30/2020 Office Visit Neurology Tim Sharma MD [address] [place] [address] Dr [address] [place] [address] [facility] NE[facility] Part of [facility] Start: 02-26-2020 Screening for malignant neoplasm of breast Mammogram [facility] Start: 12-24-2019 Influenza vaccination Flu vaccine (#1) [place], [place] Start: 08-31-2019 Screening for malignant neoplasm of lung Low dose CT lung screening [place], [place] Start: 02-13-2019 Creatinine measurement Creatinine monitoring [place], [place] Start: 11-30-2018 Potassium monitoring Potassium monitoring [place] Start: 11-08-2018 Lipid panel Lipid screen [place], [place] Start: 08-02-2018 FQHC visit, estab pt Established Patient [facility] Work Phone: Start: 10-12-2017 Polysom 6/>yrs sleep 4/> addl nicky attnd Polysomnography with CPAP testing [facility] Start: 10-12-2017 Polysom 6/>yrs sleep w/cpap 4/> addl nicky attnd Polysomnography with CPAP testing [facility] Start: 09-14-2017 Dual energy X-ray photon absorptiometry DEXA scan for body composition study [facility] Start: 08-22-2016 Screening for malignant neoplasm of breast Breast cancer screen [place], [place] Start: 01-24-2016 Screening for malignant neoplasm of cervix Cervical cancer screen [place] Start: 2014 Screening for malignant neoplasm of colon Colon cancer screen colonoscopy [place], [place] Start: 2014 Shingles Vaccine (1 of 2) Shingles Vaccine (1 of 2) [place], [place] Start: 1994 Screening for malignant neoplasm of cervix [facility] Start: 1985 Screening for malignant neoplasm of cervix Pap Smear [facility] Start: 08-31-1983 Administration of varicella zoster vaccine Zoster (Shingles) Vaccine (1 of 2) [facility] Start: 08-31-1983 DTaP,Tdap and Td Vaccines (1 - Tdap) DTaP,Tdap and Td Vaccines (1 - Tdap) [facility] Start: 08-31-1983 DTaP/Tdap/Td vaccine (1 - Tdap) DTaP/Tdap/Td vaccine (1 - Tdap) [place] Start: 1982 Adult BMI Follow Up Plan Adult BMI Follow Up Plan [facility] Start: 08-31-1979 HIV screening HIV screen [place], [place] Start: 1970 Pneumococcal 0-64 years Vaccine (1 of 1 - PPSV23) Pneumococcal 0-64 years Vaccine (1 of 1 - PPSV23) [place], [place] Start: 1964 Hepatitis C screening Hepatitis C screen [place], [place] Start: 1964 Screening for malignant neoplasm of colon [facility] Start: 1964 Tobacco Counseling Tobacco Counseling [facility] Basement membrane Ig G Ab [Units/volume] in Serum Glomerular Basement Membrane IgG, Serum Lab Routine 10/18/2023 11:37 AM EDT [facility] Basic metabolic 2000 panel - Serum or Plasma Basic Metabolic Panel Lab Routine Lab max of 3 days, Daily, for lab use only until discontinued starting 10/16/2023 [facility] Comment on above: Lab max of 3 days, Daily, for lab use on ly until discontinued starting 10/16/2023 End: 01-01-2025 Basic metabolic 2000 panel - Serum or Plasma Basic Metabolic Panel Lab Routine 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 1 Occurrences starting 01/02/2024 until 01/01/2025 [facility] Comment on above: 1 Occurrences starting 01/02/2024 until 01/01/2025 BiPAP/CPAP/AutoPAP BiPAP/CPAP/Au toPAP Respiratory Care Routine Every 12 hour check until discontinued starting 10/15/2023, 1 completed [employer] Work Phone: Comment on above: Every 12 hour check until discontinued s tarting 10/15/2023, 1 completed CBC panel - Blood by Automated count CBC without diff Lab Routine Lab max of 3 days, Daily, for lab use only until discontinued starting 10/16/2023 [employer] 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 1 Occurrences starting 01/02/2024 until 01/01/2025 [facility] Comment on above: 1 Occurrences starting 01/02/2024 until 01/01/2025 CBC W Auto Different ial panel - Blood CBC auto differential Lab Routine Lab max of 3 days, Daily, for lab use only until discontinued starting 10/15/2023, 4 completed [facility] Comment on above: Lab max of 3 days, Daily, for lab use on ly until discontinued starting 10/15/2023, 4 completed Comprehensive metabo lic 2000 panel - Serum or Plasma Comprehensive metabolic panel Lab Routine Lab max of 3 days, Daily, for lab use only until discontinued starting 10/15/2023, 4 completed [facility] Comment on above: Lab max of 3 days, Daily, for lab use on ly until discontinued starting 10/15/2023, 4 completed End: 10-15-2023 Cryoglobulin W/ Identification [facility] Comment on above: Once for 1 Occurrences starting 10/15/19 until 10/15/2023 End: 10-18-2023 Glomerular Basement Membrane IgG, Serum Glomerular Basement Membrane IgG, Serum Lab Routine Once for 1 Occurrences starting 10/18/2023 until 10/18/2023 [employer] Work Phone: Comment on above: Once for 1 Occurrences starting 10/18/19 until 10/18/2023 Ionized calcium Ionized calcium Lab Routine Lab max of 3 days, Daily, for lab use only until discontinued starting 10/16/2023 [facility] Comment on above: Lab max of 3 days, Daily, for lab use on ly until discontinued starting 10/16/2023 Magnesium [Mass/volu me] in Serum or Plasma Magnesium Lab Routine Lab max of 3 days, Daily, for lab use only until discontinued starting 10/15/2023, 4 completed [facility] Comment on above: Lab max of 3 days, Daily, for lab use on ly until discontinued starting 10/15/2023, 4 completed End: 01-01-2025 Magnesium [Mass/volume] in Serum or Plasma Magnesium Lab Routine 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 1 Occurrences starting 01/02/2024 until 01/01/2025 [facility] Comment on above: 1 Occurrences starting 01/02/2024 until 01/01/2025 End: 10-18-2023 Myeloperoxidase Antibodies, IgG, Serum Myeloperoxidase Antibodies, IgG, Serum Lab Routine Once for 1 Occurrences starting 10/18/2023 until 10/18/2023 [facility] Comment on above: Once for 1 Occurrences starting 10/18/19 until 10/18/2023 Myeloperoxidase IgG Ab [Units/volume] in Serum Myeloperoxidase Antibodies, IgG, Serum Lab Routine 10/18/2023 11:37 AM EDT [facility] Oxygen Therapy - Maintain SpO2: 90%; *DISPOSAL OPERATOR Guidelines for O2: Yes; Document: \[employer]\epi c\EPIC_Reference\Orders\ Respiratory Care Guidelines\CPG Oxygen 2022.pdf Oxygen Therapy - Maintain SpO2: 90%; *DISPOSAL OPERATOR Guidelines for O2: Yes; Document: \[employer].org\epic\ EPIC_Reference\Orders\Resp iratory Care Guidelines\CPG Oxygen 2022.pdf Respiratory Care Routine As Needed until discontinued starting 10/15/2023 [employer] 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 1 Occurrences starting 01/02/2024 until 01/01/2025 [facility] Comment on above: 1 Occurrences starting 01/02/2024 until 01/01/2025 Phosphate [Mass/volu me] in Serum or Plasma Phosphorus Lab Routine Lab max of 3 days, Daily, for lab use only until discontinued starting 10/16/2023, 3 completed [facility] Comment on above: Lab max of 3 days, Daily, for lab use on ly until discontinued starting 10/16/2023, 3 completed End: 01-01-2025 Phosphate [Mass/volume] in Serum or Plasma Phosphorus Lab Routine 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 1 Occurrences starting 01/02/2024 until 01/01/2025 [facility] Comment on above: 1 Occurrences starting 01/02/2024 until 01/01/2025 End: 01-01-2025 Protein creat ratio Protein creat ratio Lab Routine 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 1 Occurrences starting 01/02/2024 until 01/01/2025 [facility] Comment on above: 1 Occurrences starting 01/02/2024 until 01/01/2025 Protein electrophore sis, urine Protein electrophoresis, urine Lab Routine 10/16/2023 10:37 AM EDT [facility] End: 01-01-2025 Urinalysis Urinalysis Lab Routine 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 1 Occurrences starting 01/02/2024 until 01/01/2025 [facility] Comment on above: 1 Occurrences starting 01/02/2024 until 01/01/2025 End: 01-01-2025 Vitamin D 25 hydroxy Vitamin D 25 hydroxy Lab Routine 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 1 Occurrences starting 01/02/2024 until 01/01/2025 [facility] Comment on above: 1 Occurrences starting 01/02/2024 until 01/01/2025 Immunizations Immunization Date Immunization Notes Care Provider Fa cility 01-02-2021 COVID-19 Vaccine, vector-nr, rS-Ad26, PF, 0.5mL Isma Hayward MD Work Phone: [facility] Payers Date Payer Category Payer Medicaid HMO [facility] MEDICAID Member Subscriber Plan / Payer (Effective 2022-Present) Name: Danielle Montana Relation to Subscriber: Self Name: Danielle Montana Payer ID: [id number] (NAIC) Group ID: [id number] Type: Not on file Address: [place] [id number] 2022 Private Health Insurance [facility] [id number] 2022-Present [phone] [address] [place] [address] [id number] 2022 Medicaid [id number] 2017 Medicaid [id number] 1959 Private Health Insurance [id number] 2.16.840.1.564989.3.441 1964 Unknown [id number] 2.16.840.1.248506.3.579. 2.356 1964 Unknown [id number] 2.16.840.1.853867.3.579. 2.173 1964 Unknown [id number] 2.16.840.1.509537.3.579. 2.173 1964 Unknown [id number] 2.16840.1.889927.3.579. 2.173 1964 Unknown [id number] 2.16.840.1.592088.3.579. 2.593 1964 Unknown [id number] 2.16.840.1.879033.3.579. 2.593 1964 Unknown [id number] 2.16.840.1.287303.3.579. 2.593 1964 Unknown [id number] 2.16.840.1.508457.3.579. 2.1286 1964 Unknown [id number] 2.16.840.1.913850.3.579. 2.6 1964 Unknown [id number] 2.16.840.1.727948.3.579. 2.1285 1964 Unknown [id number] 2.16.840.1.484974.3.579. 2.1285 1964 Unknown [id number] 2.16.840.1.807244.3.579. 2.128 1964 Unknown [id number] 2.16.840.1.225093.3.579. 2.1285 1964 Unknown [id number] 2.16.840.1.321894.3.579. 2.1285 1964 Unknown [id number] 2.16.840.1.714939.3.579. 2.1285 1964 Unknown [id number] 2.16.840.1.277163.3.579. 2.128 1964 Unknown [id number] 2.16.840.1.827783.3.579. 2.1285 1964 Unknown [id number] 2.16.840.1.087270.3.579. 2.9 1964 Unknown [id number] 2.16.840.1.231402.3.579. 2.1259 1964 Unknown [id number] 2.16.840.1.960539.3.579. 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 Start: 06-04-2020 End: 11-02-2023 [facility] Start: 10-15-2023 End: 01-15-2024 Alcoholic beverage intake Ex-drinker (finding) [facility] Has the [email or web address], or [employer] threatened to shut off services in your home in past 12Mo No [facility] How often to you hav e a drink containing alcohol? Never [facility] Average Number of Drinks Not on file [facility] How often to you hav e a drink containing alcohol? Monthly or less [facility] How many standard drinks containing alcohol do you have on a typical day? 1 or 2 [facility] Start: 11-27-2014 Sex Female (finding) [facility] Goals Date Patient Goal Desired [...] List Diagnosis Date Noted Anxiety 11/06/2023 Cancer ([facility]) 11/06/2023 Cervical cancer ([facility]) 11/06/2023 Morbid obesity ([facility]) 11/06/2023 Cluster headache 11/06/2023 Degenerative arthritis 11/06/2023 Dry mouth 11/06/2023 Heartburn 11/06/2023 Joint pain 11/06/2023 Mouth sores 11/06/2023 MRSA (methicillin resistant Staphylococcus aureus) 11/06/2023 Nausea 11/06/2023 Osteoporosis 11/06/2023 Back pain 11/06/2023 Other chest pain 11/06/2023 SOB (shortness of breath) 11/06/2023 Stiff muscles 11/06/2023 Swollen ankles 11/06/2023 Weakness 11/06/2023 Emphysema of lung ([facility]) 11/02/2023 Class 3 severe obesity due to excess calories without serious comorbidity in adult 11/02/2023 Depression 11/02/2023 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 10/31/2023 Microscopic polyangiitis ([facility]/HCC) 10/27/2023 B12 deficiency 10/17/2023 Iron deficiency anemia secondary to inadequate dietary iron intake 10/17/2023 Abnormal fasting glucose 10/16/2023 LUTHER (iron deficiency anemia) 10/16/2023 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, psychotic disturbance, mood disturbance, or anxiety ([facility]) 10/16/2023 Right knee pain 10/16/2023 Tear of articular cartilage of right knee, current, initial encounter 10/16/2023 ERIN (acute kidney injury) 10/15/2023 Edema of both lower extremities 10/15/2023 Mixed hyperlipidemia 10/15/2023 Hypokalemia 10/15/2023 Bipolar depression ([facility]) 04/26/2023 Chronic rhinitis 04/26/2023 Hyperlipidemia 04/26/2023 Non-recurrent acute suppurative otitis media of both ears without spontaneous rupture of tympanic membranes 04/26/2023 Hyperglycemia, drug-induced 12/26/2020 ADORE (obstructive sleep apnea) 12/26/2020 COPD with acute exacerbation ([facility]) 12/25/2020 Urinary tract infection 02/03/2019 Acute respiratory failure with hypoxia and hypercarbia ([facility]) 01/22/2019 Memory change 02/13/2018 Pneumonia of both lungs due to infectious organism 07/14/2017 Peripheral visual field defect, bilateral 05/31/2017 Visual hallucination 05/31/2017 ARSH (generalized anxiety disorder) 04/13/2017 Open angle with borderline findings and high glaucoma risk in both eyes 01/25/2017 Astigmatism, regular 12/15/2016 Hyperopia 12/15/2016 Presbyopia 12/15/2016 PAD (peripheral artery disease) 12/07/2016 Chest pain on exertion 11/11/2016 Chronic obstructive pulmonary disease ([facility]) 06/07/2016 DNS (deviated nasal septum) 06/07/2016 Dysphonia 06/07/2016 Henry's edema of vocal folds 06/07/2016 Smoking 06/07/2016 Tinnitus of right ear 06/07/2016 Tongue lesion 06/03/2016 Cellulitis of left hand 11/15/2015 Essential hypertension 04/20/2015 Morbid (severe) obesity due to excess calories ([facility]) 11/08/2013 Dysthymic disorder 11/08/2013 Fibromyalgia, primary 11/08/2013 Gastroesophageal reflux disease 01/19/2012 Abnormal cardiovascular stress test 11/19/2024 Abnormal findings on diagnostic imaging of heart and coronary circulation 11/19/2024 Allergies: Allergies[2] 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 [facility] 12-06-2024 Note No associated orders from this encounter found during lookback period of 72 hours. [facility] 10-08-2024 Note [facility] Cardiology Clinic Note Chief Complaint: Patient here [...] Bumex 1 mg (more content not included)... [facility] 05-20-2024 Note [facility] Cardiology Clinic Note Chief Complaint: Patient here for follow up [facility] for acute CHF. She was discharged from [facility] on losartan and amlodipine but she says she was never provided with RX's for these. She used to see [facility] cardiology back in 2020 for chest [...] problems arise Mehrdad Mccormick MD, MPH, FACC, [facility], [facility] Interventional Cardiology Pager Email: [email or web address] Addendum: The patient is in need of a blood pressure cuff to measure her blood pressure at home and to keep an accurate log. Mehrdad Mccormick MD, MPH, FACC, F (more content not included)... [facility] 03-19-2024 Miscellaneous Notes Called patient and left a voicemail to confirm their upcoming appt on 03/25/24 in [place] with Fran Wild MD. The patient was instructed to call our office back to further confirm: [phone] documented in this encounter [facility] 03-19-2024 Telephone encounter Note Called patient and left a voicemail to confirm their upcoming appt on 03/25/24 in [place] with Fran Wild MD. The patient was instructed to call our office back to further confirm: [phone] [facility] 01-31-2024 History of Present illness Narrative Associated Problem(s): Chronic obstructive pulmonary disease ([facility]) Poorly controlled COPD. Currently taking [...] pt to have CXR completed YVAN. Phoned [facility] radiology to call with results. Advised pt if dyspnea, chest pain, dizziness, or worsening symptoms occur to report to ER immediately. Pt verbalized understanding. Pt was following with Pulmonology in [place] 2 years ago, needs established with new Account Relationship Manager. Has hx of ADORE- does not wear [...] Sore throat Was previously seeing Pulmonology in [place], has not been seen in 2 years. Needs to establish with new granite polisher machine. Review of Systems Constitutional: Negative for activity [...] Visit Chronic obstructive pulmonary disease ([facility]) - Primary Poorly controlled COPD. [...] understanding. Pt was following with Pulmonology in [place] 2 years ago, needs established with new Account Relationship Manager. Has hx of ADORE- does not wear [...] (ZyrTEC) 10 MG tablet Emphysema of lung ([facility]) Relevant Orders Ambulatory referral to Pulmonology documented in this encounter [facility] 01-31-2024 Instructions Erica Pompa NP [...] ER!!!! documented in this encounter [facility] 01-15-2024 History of Present illness [...] Diagnosis Date ERIN (acute kidney injury) ([facility]) 10/18/2023 Anxiety Back pain Cancer ([facility]) cervical cancer approx 1994 Cervical cancer ([facility]) Chest pain Cluster headache COPD (chronic obstructive pulmonary disease) ([facility]) Degenerative arthritis Depression Dry mouth Emphysema Emphysema of lung ([facility]) Fibromyalgia Fibromyalgia, primary GERD (gastroesophageal reflux disease) Heartburn Hypertension Joint pain Morbid obesity ([facility]) Mouth sores MRSA (methicillin resistant Staphylococcus aureus) Nausea Obesity Osteoporosis PAD (peripheral artery disease) ([facility]) PVD (peripheral vascular disease) ([facility]) Sleep apnea cpap SOB (shortness of breath) Stiff muscles Swollen ankles Weakness Surgical History: Past Surgical History: Procedure Laterality Date ABDOMINAL SURGERY BILATERAL SI JOINT INJECTION #1 Bilateral 11/07/2016 Performed by Mony Klein MD at [facility] COLONOSCOPY N/A 10/14/2019 Performed by Eben Lindsay DO at [facility] Coronary angiogram and left ventricular gram/pressure N/A 11/18/2016 Performed by Bobby Stanton MD at [facility] CARDIAC CATH LABS HYSTERECTOMY 06/22/1998 INCISION AND DRAINAGE and irrigation w/Drain LEFT HAND and left elbow Left 11/16/2015 Performed by Kt Ann MD at [facility] TOE AMPUTATION Social History: Social History Socioeconomic [...] 10/15/2023 IRONSAT 16 07/17/2017 FERRITIN 45 10/15/2023 [id number] 159 (L) 10/15/2023 [id number] 391 08/15/2014 FOLATE 10.3 10/15/2023 FOLATE 7.6 [...] (Answering service). BRUCE Landon [facility] This note was created with the assistance of a speech-recognition program. Although the intention is to generate a document that actually reflects the content of the visit, no guarantees can be provided that every mistake has been identified and corrected by editing. BRUCE Landon 01/15/24 1530 BRUCE Landon 01/15/24 1531 documented in this encounter [facility] 01-04-2024 Miscellaneous Notes ----- Message from GAMAL Mccray sent at 01/02/2024 1:46 PM EDT ----- This patient will need added to next weeks add on clinic. She was never seen after hospital d/c in October and she is on rituxan. Ill put her labs in Shazia Pinto LM to schedule f/u. documented in this encounter [facility] 01-04-2024 Telephone encounter Note ----- Message from GAMAL Mccray sent at 01/02/2024 1:46 PM EDT ----- This patient will need added to next weeks add on clinic. She was never seen after hospital d/c in October and she is on rituxan. Ill put her labs in [facility] P[facility] 01-04-2024 Telephone encounter Note LM to schedule f/u. [facility] 11-29-2023 History of Present illness [...] stable ambulatory condition. documented in this encounter [facility] 10-18-2023 Plan of care note Problem: Pain Goal: Patient goal is pain score less than 4, able to rest, and participant in treatment plan as appropriate Description: INTERVENTIONS: 1. Encourage patient or legal claims representative to report early pain and ask [...] per policy 9. Teach patient or legal claims representative interventions for comforting Outcome: Progressing Note: [...] at the bedside 7. Instruct patient/ patient claims representative about use of safety devices 8. Include patient/ patient claims representative in decisions related to safety Outcome: Progressing Note: Evaluation of progress towards goal: call light within reach, bed to lowest position [facility] 10-18-2023 Miscellaneous Notes Problem: Pain Goal: Patient goal is pain score less than 4, able to rest, and participant in treatment plan as appropriate Description: INTERVENTIONS: 1. Encourage patient or legal claims representative to report early pain and ask [...] per policy 9. Teach patient or legal claims representative interventions for comforting Outcome: Progressing Note: [...] at the bedside 7. Instruct patient/ patient claims representative about use of safety devices 8. Include patient/ patient claims representative in decisions related to safety Outcome: Progressing Note: Evaluation of progress towards goal: call light within reach, bed to lowest position DISCHARGE PLANNING NOTE Danielle Montana Web Site Administrator conducted a visit at patient bedside. Patient ws updated on transfer process. We discussed that we did find her a new physician, Shawn Zamora in [place], [place]. It is on patient's AVS for time of discharge. Patient Discharge Plan: Home with self care. New physician will be Dr. Shawn Zamora in [place], [place]. [phone]. Patient is to call at time of [...] that there are some limitations compared to rzbc-an-ohox evaluations. We elected to proceed. Nephrology Daily [...] dapsone and atovaquone are not available in [facility]. Patient is allergic to Bactrim. 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 Once the patient is at [facility] will start PJP prophylaxis with atovaquone 0 or dapsone. Strict Is&Os. Do not start anticoagulation or antiplatelet therapy without notify Nephrology as patient will need kidney biopsy Irving Flores M.D. [facility] Thank you for your consultation and allowing us to participate in the care of Danielle Montana and please do not hesitate to call us with any questions at: Office: [phone] Office Answering Service: [phone] Please feel free to contact me through [employer] Secure chat during the daytime hours, if [...] Description: INTERVENTIONS: 1. Encourage patient or legal claims representative to report early pain and ask [...] per policy 9. Teach patient or legal claims representative interventions for comforting Outcome: Progressing Note: [...] at the bedside 7. Instruct patient/ patient claims representative about use of safety devices 8. Include patient/ patient claims representative in decisions related to safety Outcome: Progressing Note: Evaluation of progress towards goal: PT is free of falls, hourly rounding is completed, area is kept clear. Problem: Knowledge Deficit Goal: Patient/patient claims representative demonstrates understanding of disease process, treatment [...] at the bedside 7. Instruct patient/ patient claims representative about use of safety devices 8. Include patient/ patient claims representative in decisions related to safety Outcome: Progressing Note: Evaluation of progress towards goal: Pt oriented to own abilities. Adequate lighting, area clear of hazards. Problem: Knowledge Deficit Goal: Patient/patient claims representative demonstrates understanding of disease process, treatment [...] Score of =/> 25 or indicated by [facility] Assessment Goal: Patient should be free from fall Description: Interventions: 1. [place] to environment 2. Hourly rounds addressing the [...] non-skid footwear 11. Teach patient and patient claims representative to maintain environment for safety and [...] (cane, walker) within reach 19. Request patient claims representative bring adaptive equipment/mobility aids from home or obtain and provide as needed 20. Consult pharmacy regarding effects of med's affecting mobility, cognition, and alternatives 21. Obtain physician order for PT if risk factors associated with mobility are present 22. Obtain physician order for OT as appropriate 23. Utilize diversional activities 24. Educate patient and patient claims representative how to maintain a safe environment during visitation times (notify nurse prior to leaving bedside) 25. Consider appropriateness of medical or non-medical insurance coding specialist 26. Set up voiding schedule as appropriate [...] that there are some limitations compared to mhee-ew-lxrz evaluations. We elected to proceed. Nephrology Daily [...] ratio is 4.7 g/g. SAUL is pending. Jygl-ulhgei-wjyiqzkb DNA is pending. Anca is pending. Glomerular [...] workup Irving Flores M.D. [facility] Thank you for your consultation and allowing us to participate in the care of Danielle Montana and please do not hesitate to call us with any questions at: Office: [phone] Office Answering Service: [phone] Please feel free to contact me through [employer] Secure chat during the daytime hours, if [...] Description: INTERVENTIONS: 1. Encourage patient or legal claims representative to report early pain and ask [...] per policy 9. Teach patient or legal claims representative interventions for comforting Outcome: Progressing Note: [...] at the bedside 7. Instruct patient/ patient claims representative about use of safety devices 8. Include patient/ patient claims representative in decisions related to safety Outcome: Progressing Note: Evaluation of progress towards goal: Patient will remain safe and free from injury. Problem: Low Risk Fall Score Description: Flores Fall Score of 0 - 24 or indicated by [facility] Assessment Goal: Patient should be free from fall Description: Interventions: 1. [place] to environment 2. Hourly rounds addressing the [...] non-skid footwear 11. Teach patient and patient claims representative to maintain environment for safety and [...] at the bedside 7. Instruct patient/ patient claims representative about use of safety devices 8. Include patient/ patient claims representative in decisions related to safety Outcome: [...] Description: INTERVENTIONS: 1. Encourage patient or legal claims representative to report early pain and ask [...] per policy 9. Teach patient or legal claims representative interventions for comforting Outcome: Progressing Note: [...] at the bedside 7. Instruct patient/ patient claims representative about use of safety devices 8. Include patient/ patient claims representative in decisions related to safety Outcome: [...] hygiene technique 7. Identify and instruct patient/patient claims representative in use of appropriate isolation precautions for identified infection/symptoms 8. Provide and discuss with patient/patient claims representative on educational MDRO sheet 9. Encourage and monitor nutritional status daily and consult stem cleaning machine feeder if indicated 10. Implement neutropenic guidelines as [...] that there are some limitations compared to eebn-mt-jzna evaluations. We elected to proceed. Nephrology Daily [...] chain ratio is 0.9 SAUL is pending. Jtrk-qufqvy-lmiydlml DNA is pending. Anca is pending. Glomerular [...] outpatient Irving Flores M.D. [facility] Thank you for your consultation and allowing us to participate in the care of Danielle Montana and please do not hesitate to call us with any questions at: Office: [phone] Office Answering Service: [phone] Please feel free to contact me through [employer] Secure chat during the daytime hours, if [...] Assessment completed at [facility]. [place] Supervisor identified self and role to the patient. Patient is agreeable to the assessment and discussion of a safe discharge plan. 10/16/23 0915 Discharge Disposition Discharge Disposition Home with Self Care County Information County of Residence [place] Patient Information Primary Caregiver Self Support System [...] of Residence Private residence Private Residence 1 [employer] Residence Accessibility Steps into home Number of Steps 2 Home Care Services No Community Agencies Currently Utilized [employer] (Patient states she does her own cooking [...] DC Assessment Completed: Yes Pharmacy: [facility] in [place], [place]. Used to use [facility]. PCP: [...] Description: INTERVENTIONS: 1. Encourage patient or legal claims representative to report early pain and ask [...] per policy 9. Teach patient or legal claims representative interventions for comforting Outcome: Progressing Note: Evaluation of progress towards goal: Pt able to report pain according to 0/10 pain scale. Medicating patient for pain per orders. Problem: Pain Goal: Patient goal is pain score less than 4, able to rest, and participant in treatment plan as appropriate Description: INTERVENTIONS: 1. Encourage patient or legal claims representative to report early pain and ask [...] per policy 9. Teach patient or legal claims representative interventions for comforting Outcome: Progressing Note: Evaluation of progress towards goal: Pt able to report pain according to 0/10 pain scale. Medicating patient for pain per orders. Problem: Knowledge Deficit Goal: Patient/patient claims representative demonstrates understanding of disease process, treatment [...] Consult: Elevated creatinine Referring Provider: Kristina Robles APRN-COSMETOLOGY EDUCATOR PCP: PCP Not In System Chief Complaint: [...] call us with any questions at: Office: [phone] Office Answering Service: [phone] Fran Wild M.D. This note was created [...] that there are some limitations compared to qglb-aj-neez evaluations. We elected to proceed. Problem: Knowledge Deficit Goal: Patient/patient claims representative demonstrates understanding of disease process, treatment [...] Description: INTERVENTIONS: 1. Encourage patient or legal claims representative to report early pain and ask [...] per policy 9. Teach patient or legal claims representative interventions for comforting Outcome: Progressing Note: [...] at the bedside 7. Instruct patient/ patient claims representative about use of safety devices 8. Include patient/ patient claims representative in decisions related to safety Outcome: Progressing Note: Evaluation of progress towards goal: ongoing. Problem: Knowledge Deficit Goal: Patient/patient claims representative demonstrates understanding of disease process, treatment plan, medications, and discharge instructions Description: INTERVENTIONS 1. Complete learning assessment and assess knowledge base 2. Provide teaching at level of understanding 3. Provide teaching via preferred learning method(s) Outcome: Progressing Note: Evaluation of progress towards goal: ongoing. documented in this encounter [facility] 10-18-2023 Progress note Formatting of t his note might be different from the original. DISCHARGE PLANNING NOTE Danielle Montana Web Site Administrator conducted a visit at patient bedside. Patient ws updated on transfer process. We discussed that we did find her a new physician, Shawn Zamora in [place], [place]. It is on patient's AVS for time of discharge. Patient Discharge Plan: Home with self care. New physician will be Dr. Shawn Zamora in [place], [place]. [phone]. Patient is to call at time of discharge to schedule appointments as below. Schedule a follow up appointment with new PCP for 7-10 days. Schedule a new patient appointment with new PCP as available. - Silvana Conklin RN 10/18/23 11:22 AM [facility] 10-18-2023 Hospital course Narrative Images from the original note were not included. [facility] INTERNAL MEDICINE Hospital Medicine Discharge Summary Patient: Danielle Montana Date of : 1965 Room: [facility]/ Encounter date: 10/18/23 DATE OF ADMISSION: 10/14/2023 DATE OF DISCHARGE:10/18/2023 DISCHARGE DIAGNOSES Principal Problem: ERIN (acute kidney injury) ([facility]) Active Problems: Chronic obstructive pulmonary disease ([facility]) Hypertension ADORE (obstructive sleep apnea) Hypokalemia Edema of both lower extremities Mixed hyperlipidemia Abnormal fasting glucose LUTHER (iron deficiency anemia) Bipolar depression ([facility]) 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, psychotic disturbance, mood disturbance, or anxiety ([facility]) Iron deficiency anemia secondary to inadequate dietary [...] Protein Urine Random 1,270 (H) <120 mg/L U/Pro/Terminal Computer Operator Ratio Calc 4.72 (H) <0.2 Microalbumin - [...] PM DISCHARGE ASSESSMENT & PLAN Transfer to [facility] per Nephrology DISCHARGE INSTRUCTION Disposition: [facility] Condition: Stable Activity: activity as tolerated [...] 7AM-7PM (all facilities): Gavin or simon through [facility]. 7PM-7AM ([facility] Psychiatry and Inpatient Rehab): Gavin or simon, [phone]. 7PM-7AM ([facility], [place], [place] and [facility]): EpicChat or page through [email or web address]. This note is dictated with the use of M*Modal. Please note that this dictation was completed with computer voice recognition software. Quite often unanticipated grammatical, syntax, homophones, and other interpretive errors are inadvertently transcribed by the computer software. Please disregard these errors. Please excuse any errors that have escaped final proofreading. Antione Santa, WAFER FAB TECHNICIAN-COSMETOLOGY EDUCATOR 10/18/23 1106 I have seen and evaluated the patient, and have reviewed the history above and agree. I have repeated the vázquez portions of the physical exam and concur with the DEREK findings. I have reviewed all laboratory findings and imaging reports/films. I agree with the plan as noted above. Isma hayward documented in this encounter [facility] 10-18-2023 Progress note Formatting of t his [...] that there are some limitations compared to aeem-ne-pcrj evaluations. We elected to proceed. Nephrology Daily [...] dapsone and atovaquone are not available in [facility]. Patient is allergic to Bactrim. 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 Once the patient is at [facility] will start PJP prophylaxis with atovaquone 0 or dapsone. Strict Is&Os. Do not start anticoagulation or antiplatelet therapy without notify Nephrology as patient will need kidney biopsy Irving Flores M.D. [facility] Thank you for your consultation and allowing us to participate in the care of Danielle Montana and please do not hesitate to call us with any questions at: Office: [phone] Office Answering Service: [phone] Please feel free to contact me through [employer] Secure chat during the daytime hours, if no response after 5 minutes then call the answering service. This note was created with the assistance of a speech-recognition program. Although the intention is to generate a document that actually reflects the content of the visit, no guarantees can be provided that every mistake has been identified and corrected by editing. [employer] Work Phone: 10-18-2023 Plan of care note Problem: Pain Goal: Patient goal is pain score less than 4, able to rest, and participant in treatment plan as appropriate Description: INTERVENTIONS: 1. Encourage patient or legal claims representative to report early pain and ask [...] per policy 9. Teach patient or legal claims representative interventions for comforting Outcome: Progressing Note: [...] at the bedside 7. Instruct patient/ patient claims representative about use of safety devices 8. Include patient/ patient claims representative in decisions related to safety Outcome: Progressing Note: Evaluation of progress towards goal: PT is free of falls, hourly rounding is completed, area is kept clear. Problem: Knowledge Deficit Goal: Patient/patient claims representative demonstrates understanding of disease process, treatment plan, medications, and discharge instructions Description: INTERVENTIONS 1. Complete learning assessment and assess knowledge base 2. Provide teaching at level of understanding 3. Provide teaching via preferred learning method(s) Outcome: Progressing Note: Evaluation of progress towards goal: Learning assessment and knowledge base assessed, teaching provided at an understandable level as needed. [facility] 10-18-2023 Plan of care note [...] at the bedside 7. Instruct patient/ patient claims representative about use of safety devices 8. Include patient/ patient claims representative in decisions related to safety Outcome: Progressing Note: Evaluation of progress towards goal: Pt oriented to own abilities. Adequate lighting, area clear of hazards. Problem: Knowledge Deficit Goal: Patient/patient claims representative demonstrates understanding of disease process, treatment [...] Score of =/> 25 or indicated by [facility] Re[facility] Assessment Goal: Patient should be free from fall Description: Interventions: 1. [place] to environment 2. Hourly rounds addressing the [...] non-skid footwear 11. Teach patient and patient claims representative to maintain environment for safety and [...] (cane, walker) within reach 19. Request patient claims representative bring adaptive equipment/mobility aids from home or obtain and provide as needed 20. Consult pharmacy regarding effects of med's affecting mobility, cognition, and alternatives 21. Obtain physician order for PT if risk factors associated with mobility are present 22. Obtain physician order for OT as appropriate 23. Utilize diversional activities 24. Educate patient and patient claims representative how to maintain a safe environment during visitation times (notify nurse prior to leaving bedside) 25. Consider appropriateness of medical or non-medical insurance coding specialist 26. Set up voiding schedule as appropriate (every 2 hours) Outcome: Progressing Note: Evaluation of progress towards goal: Pt oriented to own abilities. Adequate lighting, area clear of hazards. [facility] 10-17-2023 History of Present illness Narrative 24 hour urine collection labeled and walked to lab by Deepa Chinchilla Stool sample as ordered collected, ;labeled, and sent to the lab. Images from the original note were not included. [facility] [address] [place] [id number] Hospital Medicine Progress Note Patient: Danielle Montana [...] LIST Principal Problem: ERIN (acute kidney injury) ([facility]) Active Problems: Chronic obstructive pulmonary disease ([facility]) Hypertension ADORE (obstructive sleep apnea) Hypokalemia Edema of both lower extremities Mixed hyperlipidemia Abnormal fasting glucose LUTHER (iron deficiency anemia) Bipolar depression ([facility]) 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, psychotic disturbance, mood disturbance, or anxiety ([facility]) Iron deficiency anemia secondary to [...] prelim negative Hypokalemia -Supplement today is 3.6 -monitoring coordinator -Monitor electrolytes daily replace per protocol. -continue [...] Cohen APRN-TELLY 10/17/2023 1:20 PM [facility] Internal Medicine 7AM-7PM (all facilities): EpicMaria Rt or page through [email or web address]. 7PM-7AM ([facility], [facility] Psychiatry and Inpatient Rehab): EpicChat or page, [phone]. 7PM-7AM ([place], [place], [place], [place] and [facility] Rehab): EpicChat or page through [email or web address]. Nataliia Cohen APRN-COSMETOLOGY EDUCATOR 10/17/23 1320 I have seen and evaluated [...] from the original note were not included. [facility] [address] [facility] [id number] Hospital Medicine Progress Note Patient: Daneille Montana Date of : 1965 Room: 214/01 [...] Principal Problem: ERIN (acute kidney injury) ([facility]) Active Problems: Chronic obstructive pulmonary disease ([facility]) Hypertension ADORE (obstructive sleep apnea) Hypokalemia Edema of both lower extremities Mixed hyperlipidemia Abnormal fasting glucose LUTHER (iron deficiency anemia) Bipolar depression ([facility]) 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, psychotic disturbance, mood disturbance, or anxiety ([facility]) ASSESSMENT & PLAN ERIN -Stopped IV hydration [...] leg dopplers Hypokalemia -Supplement today is 3.2 -monitoring coordinator -Monitor electrolytes daily replace per protocol. -continue [...] of diuresis. BRUCE Maria 10/16/2023 7:56 AM [facility] Ángel [facility] Internal Medicine 7AM-7PM (all facilities): EpicChat or page through [email or web address]. 7PM-7AM ([facility], [facility] Psychiatry and Inpatient Rehab): EpicChat or page, [phone]. 7PM-7AM ([place], [place], [place], [place] and [facility] Rehab): EpicChat or page through [employer]. BRUCE Maria 10/16/23 5085 I have seen and evaluated the patient, [...] 10/16/2023 1:58 PM documented in this encounter [facility] 10-17-2023 Hospital Discharge instructions Geetha Zamudio - 10/17/2023 11:47 AM EDT YOUR SCHEDULED APPOINTMENTS Please make note of this in your schedule as to not miss or call to reschedule. Thank you! Please call office to schedule a NEW patient appointment with Dr. Shawn Zamora MD Address: [address] [place] [id number] Pt. should bring the following to appointment; [...] NEW patients, MD will not prescribe terminal gauger pain medication. documented in this encounter [facility] 10-17-2023 Progress note Formatting of t his [...] that there are some limitations compared to cxzu-cq-ygdp evaluations. We elected to proceed. Nephrology Daily [...] ratio is 4.7 g/g. SAUL is pending. Qpno-yphmcp-qmneyvpp DNA is pending. Anca is pending. Glomerular [...] workup Irving Flores M.D. [facility] Thank you for your consultation and allowing us to participate in the care of Danielle Montana and please do not hesitate to call us with any questions at: Office: [phone] Office Answering Service: [phone] Please feel free to contact me through [employer] Secure chat during the daytime hours, if no response after 5 minutes then call the answering service. This note was created with the assistance of a speech-recognition program. Although the intention is to generate a document that actually reflects the content of the visit, no guarantees can be provided that every mistake has been identified and corrected by editing. [facility] 10-17-2023 Plan of care note Problem: Pain Goal: Patient goal is pain score less than 4, able to rest, and participant in treatment plan as appropriate Description: INTERVENTIONS: 1. Encourage patient or legal claims representative to report early pain and ask [...] per policy 9. Teach patient or legal claims representative interventions for comforting Outcome: Progressing Note: [...] at the bedside 7. Instruct patient/ patient claims representative about use of safety devices 8. Include patient/ patient claims representative in decisions related to safety Outcome: Progressing Note: Evaluation of progress towards goal: Patient will remain safe and free from injury. Problem: Low Risk Fall Score Description: Flores Fall Score of 0 - 24 or indicated by [facility] Assessment Goal: Patient should be free from fall Description: Interventions: 1. [place] to environment 2. Hourly rounds addressing the [...] non-skid footwear 11. Teach patient and patient claims representative to maintain environment for safety and engage in all aspects of fall prevention program Outcome: Progressing Note: Evaluation of progress towards goal: Patient will remain free from falls. [facility] 10-17-2023 Plan of care note Problem: Safety [...] at the bedside 7. Instruct patient/ patient claims representative about use of safety devices 8. Include patient/ patient claims representative in decisions related to safety Outcome: [...] self. Will assist in reposition when needed. [facility] 10-16-2023 Plan of care note Problem: Pain Goal: Patient goal is pain score less than 4, able to rest, and participant in treatment plan as appropriate Description: INTERVENTIONS: 1. Encourage patient or legal claims representative to report early pain and ask [...] per policy 9. Teach patient or legal claims representative interventions for comforting Outcome: Progressing Note: [...] at the bedside 7. Instruct patient/ patient claims representative about use of safety devices 8. Include patient/ patient claims representative in decisions related to safety Outcome: [...] hygiene technique 7. Identify and instruct patient/patient claims representative in use of appropriate isolation precautions for identified infection/symptoms 8. Provide and discuss with patient/patient claims representative on educational MDRO sheet 9. Encourage and monitor nutritional status daily and consult stem cleaning machine feeder if indicated 10. Implement neutropenic guidelines as [...] patient is diuresing, nephro consulted. I/O's continued. [facility] 10-16-2023 Progress note Formatting of t his [...] that there are some limitations compared to toql-rp-jsqw evaluations. We elected to proceed. Nephrology Daily [...] chain ratio is 0.9 SAUL is pending. Crkw-svscyt-fxkjeknk DNA is pending. Anca is pending. Glomerular [...] which can be done as an outpatient Irivng Flores M.D. [facility] Thank you for your consultation and allowing us to participate in the care of Danielle Montana and please do not hesitate to call us with any questions at: Office: [phone] Office Answering Service: [phone] Please feel free to contact me through [employer] chat during the daytime hours, if no response after 5 minutes then call the answering service. This note was created with the assistance of a speech-recognition program. Although the intention is to generate a document that actually reflects the content of the visit, no guarantees can be provided that every mistake has been identified and corrected by editing. [email or web address] [facility] 10-16-2023 Progress note Formatting of t his [...] Assessment completed at [facility]. [place] [place] Supervisor identified self and role to the patient. Patient is agreeable to the assessment and discussion of a safe discharge plan. 10/16/23 0915 Discharge Disposition Discharge Disposition Home with Self Care County Information County of Residence [place] Patient Information Primary Caregiver Self Support System [...] of Residence Private residence Private Residence 1 [employer] Residence Accessibility Steps into home Number of Steps 2 Home Care Services No Community Agencies Currently Utilized [employer] (Patient states she does her own cooking [...] DC Assessment Completed: Yes Pharmacy: [facility] in [place], [place]. Used to use [facility]. PCP: [...] - Silvana Conklin RN 10/16/23 11:30 AM [facility] 10-15-2023 Plan of care note Problem: Pain Goal: Patient goal is pain score less than 4, able to rest, and participant in treatment plan as appropriate Description: INTERVENTIONS: 1. Encourage patient or legal claims representative to report early pain and ask [...] per policy 9. Teach patient or legal claims representative interventions for comforting Outcome: Progressing Note: Evaluation of progress towards goal: Pt able to report pain according to 0/10 pain scale. Medicating patient for pain per orders. T [facility] 10-15-2023 Plan of care note Problem: Pain Goal: Patient goal is pain score less than 4, able to rest, and participant in treatment plan as appropriate Description: INTERVENTIONS: 1. Encourage patient or legal claims representative to report early pain and ask [...] per policy 9. Teach patient or legal claims representative interventions for comforting Outcome: Progressing Note: Evaluation of progress towards goal: Pt able to report pain according to 0/10 pain scale. Medicating patient for pain per orders. Problem: Knowledge Deficit Goal: Patient/patient claims representative demonstrates understanding of disease process, treatment [...] goal: Continue to assess for when appropriate. [facility] 10-15-2023 Consult note Formatting of [...] call us with any questions at: Office: [phone] Office Answering Service: [phone] Fran Wild M.D. This note was created [...] that there are some limitations compared to sofz-sb-pifr evaluations. We elected to proceed. [employer] Work Phone: 10-15-2023 History and physical note Images from the original note were not included. [facility] INTERNAL MEDICINE Hospital Medicine History & Physical Patient: Danielle Montana Date of : 1965 Room: [facility] PCP: PCP Not In System Admission date: [...] medical history of Anxiety, Back pain, Cancer ([facility]), Cervical cancer ([facility]), Chest pain, Cluster headache, COPD (chronic obstructive pulmonary disease) ([facility]), Degenerative arthritis, Depression, Dry mouth, Emphysema, Emphysema of lung ([facility]), Fibromyalgia, Fibromyalgia, primary, GERD (gastroesophageal reflux disease), Heartburn, Hypertension, Joint pain, Morbid obesity ([facility]), Mouth sores, MRSA (methicillin resistant Staphylococcus aureus), Nausea, Obesity, Osteoporosis, PAD (peripheral artery disease) ([facility]), PVD (peripheral vascular disease) ([facility]), Sleep apnea, SOB (shortness of breath), Stiff [...] Principal Problem: ERIN (acute kidney injury) ([facility]) Active Problems: Chronic obstructive pulmonary disease ([facility]) Hypertension ADORE (obstructive sleep apnea) Hypokalemia Edema of both lower extremities Mixed hyperlipidemia ASSESSMENT & PLAN ERIN: Gentle hydration. Nephrology consult. Monitor kidney function daily. Edema both lower extremities: Monitor daily weight and I&O. Echocardiogram ordered. Nephrology consult help with diuresis/fluid balance. Hypokalemia: Supplement. monitoring manager. Monitor electrolytes daily replace per protocol. COPD: [...] APRN-TELLY, 10/15/2023 8:35 AM Dhruv Shelby Rebollar [facility] Internal Medicine 7AM-7PM (all facilities): EpicChat or page through Vocera. 7PM-7AM ([facility], [facility] Psychiatry and Inpatient Rehab): EpicChat or page, [phone]. 7PM-7AM ([place], [place], [place], [place] and [facility]): EpicChat or page [...] above, unless otherwise noted. DRE JEWELL MD [employer] Work Phone: 10-15-2023 History and physical note Images from the original note were not included. [facility] INTERNAL MEDICINE Hospital Medicine History & Physical Patient: Danielle Montana Date of : 1965 Room: [facility] PCP: PCP Not In System Admission date: [...] medical history of Anxiety, Back pain, Cancer ([facility]), Cervical cancer ([facility]), Chest pain, Cluster headache, COPD (chronic obstructive pulmonary disease) ([facility]), Degenerative arthritis, Depression, Dry mouth, Emphysema, Emphysema of lung ([facility]), Fibromyalgia, Fibromyalgia, primary, GERD (gastroesophageal reflux disease), Heartburn, Hypertension, Joint pain, Morbid obesity ([facility]), Mouth sores, MRSA (methicillin resistant Staphylococcus aureus), Nausea, Obesity, Osteoporosis, PAD (peripheral artery disease) ([facility]), PVD (peripheral vascular disease) ([facility]), Sleep apnea, SOB (shortness of breath), Stiff [...] Principal Problem: ERIN (acute kidney injury) ([facility]) Active Problems: Chronic obstructive pulmonary disease ([facility]) Hypertension ADORE (obstructive sleep apnea) Hypokalemia Edema of both lower extremities Mixed hyperlipidemia ASSESSMENT & PLAN ERIN: Gentle hydration. Nephrology consult. Monitor kidney function daily. Edema both lower extremities: Monitor daily weight and I&O. Echocardiogram ordered. Nephrology consult help with diuresis/fluid balance. Hypokalemia: Supplement. monitoring manager. Monitor electrolytes daily replace per protocol. COPD: [...] Santa APRN-TELLY, 10/15/2023 8:35 AM [facility] Emergency Department Internal Medicine 7AM-7PM (all facilities): EpicChat or page through Vocera. 7PM-7AM ([facility], [facility] Psychiatry and Inpatient Rehab): EpicChat or page, [phone]. 7PM-7AM ([place], [place], [place], [place] and [facility]): EpicChat or page [...] DRE JEWELL MD documented in this encounter [facility] 10-15-2023 Plan of care note Problem: Knowledge Deficit Goal: Patient/patient claims representative demonstrates understanding of disease process, treatment [...] goal: Continue to assess for when appropriate. [facility] 10-15-2023 Plan of care note Problem: Pain Goal: Patient goal is pain score less than 4, able to rest, and participant in treatment plan as appropriate Description: INTERVENTIONS: 1. Encourage patient or legal claims representative to report early pain and ask [...] per policy 9. Teach patient or legal claims representative interventions for comforting Outcome: Progressing Note: [...] at the bedside 7. Instruct patient/ patient claims representative about use of safety devices 8. Include patient/ patient claims representative in decisions related to safety Outcome: Progressing Note: Evaluation of progress towards goal: ongoing. Problem: Knowledge Deficit Goal: Patient/patient claims representative demonstrates understanding of disease process, treatment plan, medications, and discharge instructions Description: INTERVENTIONS 1. Complete learning assessment and assess knowledge base 2. Provide teaching at level of understanding 3. Provide teaching via preferred learning method(s) Outcome: Progressing Note: Evaluation of progress towards goal: ongoing. [facility] 10-14-2023 Emergency department Triage note Bilateral hand/feet swelling, cough, headache [facility] 10-14-2023 Emergency department Note Bilateral [...] Diagnosis Date Anxiety Back pain Cancer ([facility]) cervical cancer approx 1994 Cervical cancer ([facility]) Chest pain Cluster headache COPD (chronic obstructive pulmonary disease) ([facility]) Degenerative arthritis Depression Dry mouth Emphysema Emphysema of lung ([facility]) Fibromyalgia Fibromyalgia, primary GERD (gastroesophageal reflux disease) Heartburn Hypertension Joint pain Morbid obesity ([facility]) Mouth sores MRSA (methicillin resistant Staphylococcus aureus) Nausea Obesity Osteoporosis PAD (peripheral artery disease) ([facility]) PVD (peripheral vascular disease) ([facility]) Sleep apnea cpap SOB (shortness of breath) Stiff muscles Swollen ankles Weakness Past Surgical History: Procedure Laterality Date ABDOMINAL SURGERY BILATERAL SI JOINT INJECTION #1 Bilateral 11/07/2016 Performed by Mony Klein MD at [facility] COLONOSCOPY N/A 10/14/2019 Performed by Eben Lindsay DO at [facility] Coronary angiogram and left ventricular gram/pressure N/A 11/18/2016 Performed by Bobby Stanton MD at [facility]ATH [facility]S HYSTERECTOMY 06/22/1998 INCISION AND DRAINAGE and irrigation w/Drain LEFT HAND and left elbow Left 11/16/2015 Performed by Kt Ann MD at [facility] Travel Screening No screening [...] as of 10/15/2340 ERIN (acute kidney injury) ([facility]) Hypertensive urgency Hypokalemia Elevated brain natriuretic peptide (BNP) level MDM Medical Decision Making INanette (scribe) documented for Dr. Elliott. Chief Complaint: Leg swelling, arm swelling, nausea and a cough Differential Diagnosis includes but is not limited to: CHF exacerbation, hypertensive urgency, anemia, electrolyte derangement, LA. Plan of Care: Dr. Elliott ordered Troponin [...] is pending admission. 41 -- Niya Robles ANALYTICAL DATA SCIENTIST accepts patient under Dr Jewell. Patient to [...] None Diagnosis: 1. ERIN (acute kidney injury) ([facility]) 2. Hypertensive urgency 3. Hypokalemia 4. Elevated brain natriuretic peptide (BNP) level Disposition: Patient's disposition: Admit Patient's condition is stable. Provider Statement By electronically signing this emergency patient record, the Emergency Physician/ANALYTICAL DATA SCIENTIST/PA-C attests that all entries made into the electronic medical record by patrick Hall prior to the Physician/ANALYTICAL DATA SCIENTIST/PA-C signature reflect an accurate accounting of the evaluation and care rendered by that Emergency Physician/ANALYTICAL DATA SCIENTIST/PA-C. The Emergency Physician/ANALYTICAL DATA SCIENTIST/PA-C assumes full responsibility for those entries. The Emergency Physician/ANALYTICAL DATA SCIENTIST/PA-C also attests that any patient testing or treatment that was instituted by nursing staff in accordance to Emergency Department Preemptive Guidelines have been reviewed and unless so stated elsewhere in this patient chart, the Physician/ANALYTICAL DATA SCIENTIST/PA-C agrees with the testing and care provided. No Additional Attestations Nanette Hernandez 10/14/23 2210 Nanette Hernandez 10/14/23 2234 Alexis Elliott DO 10/14/23 2237 Nanette Hernandez 10/14/23 2240 Nanette Hernandez 10/14/23 2326 Nanette Hernandez 10/14/23 2358 Gillian Cordero MD 10/15/23 0043 Alexis Elliott DO 10/15/23 0401 documented in this encounter [facility] 10-14-2023 Physician Emergency department Note [...] Diagnosis Date Anxiety Back pain Cancer ([facility]) cervical cancer approx 1994 Cervical cancer ([facility]) Chest pain Cluster headache COPD (chronic obstructive pulmonary disease) ([facility]) Degenerative arthritis Depression Dry mouth Emphysema Emphysema of lung ([facility]) Fibromyalgia Fibromyalgia, primary GERD (gastroesophageal reflux disease) Heartburn Hypertension Joint pain Morbid obesity ([facility]) Mouth sores MRSA (methicillin resistant Staphylococcus aureus) Nausea Obesity Osteoporosis PAD (peripheral artery disease) ([facility]) PVD (peripheral vascular disease) ([facility]) Sleep apnea cpap SOB (shortness of breath) Stiff muscles Swollen ankles Weakness Past Surgical History: Procedure Laterality Date ABDOMINAL SURGERY BILATERAL SI JOINT INJECTION #1 Bilateral 11/07/2016 Performed by Mony Klein MD at [facility] COLONOSCOPY N/A 10/14/2019 Performed by Eben Lindsay DO at [facility] Coronary angiogram and left ventricular gram/pressure N/A 11/18/2016 Performed by Bobby Stanton MD at [facility] CARDI[facility] CATH LABS HYSTERECTOMY 06/22/1998 INCISION AND DRAINAGE and irrigation w/Drain LEFT HAND and left elbow Left 11/16/2015 Performed by Kt Ann MD at [facility] Travel Screening No screening [...] of 10/15/23 0041 Sat Oct 14, 2023 0750 Pain Score: 8 [KM] ED Course User [...] CHF exacerbation, hypertensive urgency, anemia, electrolyte derangement, LA. Plan of Care: Dr. Elliott ordered Troponin [...] is pending admission. 0042 -- Niya Robles ANALYTICAL DATA SCIENTIST accepts patient under Dr Jewell. Patient to [...] None Diagnosis: 1. ERIN (acute kidney injury) ([facility]) 2. Hypertensive urgency 3. Hypokalemia 4. Elevated brain natriuretic peptide (BNP) level Disposition: Patient's disposition: Admit Patient's condition is stable. Provider Statement By electronically signing this emergency patient record, the Emergency Physician/ANALYTICAL DATA SCIENTIST/PA-C attests that all entries made into the electronic medical record by patrick Hall prior to the Physician/ANALYTICAL DATA SCIENTIST/PA-C signature reflect an accurate accounting of the evaluation and care rendered by that Emergency Physician/ANALYTICAL DATA SCIENTIST/PA-C. The Emergency Physician/ANALYTICAL DATA SCIENTIST/PA-C assumes full responsibility for those entries. The Emergency Physician/ANALYTICAL DATA SCIENTIST/PA-C also attests that any patient testing or treatment that was instituted by nursing staff in accordance to Emergency Department Preemptive Guidelines have been reviewed and unless so stated elsewhere in this patient chart, the Physician/ANALYTICAL DATA SCIENTIST/PA-C agrees with the testing and care provided. No Additional Attestations Nanette Hernandez 10/14/23 2210 Nanette Hernandez 10/14/23 2234 Alexis Elliott DO 10/14/23 2237 Nanette Hernandez 10/14/23 2240 Nanette Hernandez 10/14/23 2326 Nanette Hernandez 10/14/23 2358 Gillian Cordero MD 10/15/23 0043 Alexis Elliott DO 10/15/23 0401 [email or web address] Work Phone: 02-09-2022 Note PROCEDURE: XR [...] by: LO COSTA Date: 2022-02-09 06:49 [facility] 02-09-2022 Note PROCEDURE: XR ANKLE RT [...] by: LO COSTA Date: 2022-02-09 06:49 [facility] Evaluation note Includes: Assessments for all patient encountersNo Assessments Recorded [facility] Work Phone: Evaluation note Diagnosis ARSH (generalized anxiety disorder) ([facility]) Generalized anxiety disorder [facility] Diagnosis Chronic obstructive pulmonary disease with acute exacerbation ([facility])- Primary Chronic rhinitis Bipolar depression ([facility]) Bipolar I disorder, most recent episode (or current) depressed, unspecified ADORE (obstructive sleep apnea) Obstructive sleep apnea (adult) (pediatric) Pulmonary emphysema, unspecified emphysema type ([facility]) [facility] Diagnosis ERIN (acute kidney injury) ([facility] Primary ERIN (acute kidney injury) ([facility]) Hypertensive urgency Hypokalemia Hypopotassemia Elevated brain natriuretic peptide (BNP) level Chronic obstructive pulmonary disease ([facility]) Hypertension Unspecified essential hypertension Hypokalemia Hypopotassemia ADORE (obstructive sleep apnea) Obstructive sleep apnea (adult) (pediatric) Edema of both lower extremities Mixed hyperlipidemia Abnormal fasting glucose LUTHER (iron deficiency anemia) Unspecified iron deficiency anemia Bipolar depression ([facility]) Bipolar I disorder, most recent episode (or current) depressed, unspecified 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, psychotic disturbance, mood disturbance, or anxiety ([facility]) Iron deficiency anemia secondary to inadequate dietary iron intake B12 deficiency [facility] Diagnosis 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) Hypovitaminosis D Unspecified vitamin D deficiency Hypomagnesemia Disorders of magnesium metabolism Primary hypertension Unspecified essential hypertension Nephrotic range proteinuria Proteinuria [facility] Narr[facility] History of Present Illness not supported for this document type No History of Present Illness [facility] Work Phone: Instructions Instructions not supported for this document type No Instructions [facility] Work Phone: InstructionsNot on filedocumented in [...] active Goals No Outcomes [facility] Work Phone: reason for referral (narrative)* Consultation (Routine) - Pending Review Specialty Diagnoses / Procedures Referred By Juan fonseca Referred To Contact Pulmonary Disease Diagnoses Chronic obstructive pulmonary disease with acute exacerbation ([facility]) ADORE (obstructive sleep apnea) Pulmonary emphysema, unspecified emphysema type ([facility]) Procedures [place] OFFICE/OUTPATIENT [facility] MDM 60 MINUTES Erica Pompa NP [address] [place] [address] Referral ID Status Reason Start Date Expiration Date Visits Requested Visits Authorized [id number] Pending Review Specialty Services Required 01/31/2024 07/29/2024 1 1 [facility] Narrative - Reported Review of Systems not supported for this document type No Review of Systems [facility] Work Phone: History of Past [...] FoundDocuments on File Type Date Recorded Patient Wind Development Director Expl anation ACP-Advance Directive ACP-Power of Quality Control Manager Documents on File Type Date Recorded Patient Wind Development Director Expl anation Durable Power of Quality Control Manager 01/12/2021 1:47 PM Living Will 01/12/2021 1:47 [...] section and content) DATE CREATED AUTHOR 10/23/2017 [facility] DATE CREATED AUTHOR AUTHOR'S ORGANIZ ATION 08/01/2018 [facility] [place] DATE CREATED AUTHOR AUTHOR'S ORGANIZ ATION 08/11/2018 [employer] DATE CREATED AUTHOR AUTHOR'S ORGANIZ ATION 01/23/2020 [facility] DATE CREATED AUTHOR AUTHOR'S ORGANIZ ATION 04/19/2022 [facility] DATE CREATED AUTHOR AUTHOR'S ORGANIZ ATION 01/14/2024 [facility] DATE CREATED AUTHOR AUTHOR'S ORGANIZ ATION 01/23/2024 [facility] DATE CREATED AUTHOR AUTHOR'S ORGANIZ ATION 02/02/2024 [facility] DATE CREATED AUTHOR AUTHOR'S ORGANIZ ATION 12/27/2024 [facility] Reason for Visit (unrecogniz ed section and content) Reason Onset Date Comments Med Refill 01/29/2024 Reason Comments Cough Reason Comments Leg Swelling Arm Swelling Nausea Cough Specialty Diagnoses / Procedures Referred By Juan fonseca Referred To Contact Diagnoses Hypokalemia Chest pain ERIN (acute kidney injury) ([facility]) Hypertensive urgency Elevated brain natriuretic peptide (BNP) level Dre Jewell MD [address] [facility] [place] [address] Referral ID Status Reason Start Date Expiration Date Visits Re quested Visits Authorized [id number] 1 1 Reason Comments Outpatient Infusion [facility] Specialty Diagnoses / Procedures Referred By Juan fonseca Referred To Contact Diagnoses 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 Procedures INJECTION,RITUXIMAB-PVVR,BI OSIMILAR,(RUXIENCE),10MG INJECTION, RITUXIMAB-ABBS,BIOSIMILAR,( TRUXIMA),10MG Wnada Mendez MD [address] [place] [address] Pfo Med Onc [address] [place] [address] Referral ID Status Reason Start Date Expiration Date V isits Requested Visits Authorized [id number] Authorized 11/13/2023 11/09/2024 1 4 Reason Comments Med Refill Care Teams (unrecognized sec tion and content) Roving Weight Gauger Relationship Specialty Start Date End Date Vu Rivera MD [address] [place] [address] PCP - General Family Medicine 12/12/23 Erica Pompa NP [address] [place] [address] Nurse Practitioner Family Medicine 12/12/23 Roving Weight Gauger Relationship Specialty Start Date End Date Vu Rivera MD [address] [place] [phone] PCP - General Family Medicine 12/12/23 Erica Pompa NP [address] [place] [address] Nurse Practitioner Family Medicine 12/12/23 Roving Weight Gauger Relationship Specialty Start Date End Date Vu Rivera MD [address] [place] [phone] PCP - General Family Medicine 12/12/23 Erica Pompa NP [address] [place] [address] Nurse Practitioner Family Medicine 12/12/23 Roving Weight Gauger Relationship Specialty Start Date End Date Pcp, [place] [address] PCP - General Family Medicine 10/14/23 Roving Weight Gauger Relationship Specialty Start Date End Date Shawn Zamora MD [address] [place] [address] PCP - General Family Medicine 10/19/23 Roving Weight Gauger Relationship Specialty Start Date End Date Shawn Zamora MD [address] [place] [address] PCP - General Family Medicine 10/19/23 Roving Weight Gauger Relationship Specialty Start Date End Date Shawn Zamora MD [address] [place] [address] PCP - General Family Medicine 10/19/23 Roving Weight Gauger Relationship Specialty Start Date End Date Shawn Zamora MD [address] [place] [address] PCP - General Family Medicine 10/19/23 Roving Weight Gauger Relationship Specialty Start Date End Date Shawn Zamora MD [address] [place], [place] [id number] PCP - General Family Medicine 10/19/23 Roving Weight Gauger Relationship Specialty Start Date End Date Shawn Zamora MD [address] [place], [place] [id number] PCP - General Family Medicine 10/19/23 Roving Weight Gauger Relationship Specialty Start Date End Date Shawn Zamora MD [address] [place] [address] PCP - General Family Medicine 10/19/23 Scheduled [...] whole-do not crush or chew. Although the field assistant does not recommend opening the capsule to [...] deficiency anemia 1539 (New Bag - Provider: aSul Gates RN)1609 (Stop Bag - Provider: Saul [...] Mon10/15/23 at 0211 0230 (Given - Provider: Boroke Kulkarni RN) 2229 (Given - Provider: Emily [...] Every 4 hours PRN, high blood pressure, xor=[id number], Starting on 10/15/23 at 1020, Look-alike/sound-alike medication - verify indication for use. Administer IV doses as a slow IV push; maximum rate: 5 mg/minute. 0355 (Given - Provider: mEily Strickland RN) hydrALAZINE (APRESOLINE) injection 20 mg [...] Romelia Miller RCP) kit for prep of [id number] 2.5 mg recon soln 5 millicurie (COMPLETED) [...] BE BASED ON THE PRIMARY CLINICAL RECORDS. [email or web address] provides no warranty or guarantee of the accuracy or completeness of information in this document.
--- NOTE | 2025-01-30 08:30 | CM.NOTE ---
Rounds made with Dr. Bro, no discharge today. Pt continues to require oxygen @2L [place]. Pt does not have home oxygen. RN will wean oxygen as tolerated, pt will require walk test at discharge.
[2025-01-30] MEDS: IPRATROPIUM/ALBUTEROL SULFATE 3 ML AMPUL.NEB IH ×3 (08:59→20:25)
[2025-01-30] MEDS: METHYLPREDNISOLONE SOD SUCC PF 40 MG/ML VIAL IVP ×2 (09:19→21:06)
[2025-01-30] MEDS: AMLODIPINE BESYLATE 5 MG TABLET 10 MG PO (09:20)
[2025-01-30] MEDS: BUSPIRONE HCL 15 MG TABLET PO ×2 (09:21→21:06)
[2025-01-30] MEDS: CARVEDILOL 12.5 MG TABLET PO ×2 (09:21→21:06)
[2025-01-30] MEDS: DAPAGLIFLOZIN 5 MG TABLET 10 MG PO (09:21)
[2025-01-30] MEDS: DONEPEZIL HCL 10 MG TABLET PO (09:22)
[2025-01-30] MEDS: DOXYCYCLINE MONOHYDRATE 100 MG CAPSULE PO ×2 (09:23→21:07)
[2025-01-30] MEDS: ENOXAPARIN SODIUM 60 MG/0.6 ML SYRINGE SUBQ ×2 (09:24→21:08)
[2025-01-30] MEDS: FERROUS SULFATE 325 MG TABLET PO (09:24)
[2025-01-30] MEDS: LAMOTRIGINE 100 MG TABLET PO (09:25)
[2025-01-30] MEDS: LOSARTAN POTASSIUM 25 MG TABLET PO (09:26)
[2025-01-30] MEDS: PANTOPRAZOLE SODIUM 40 MG TABLET.DR PO (09:27)
[2025-01-30] MEDS: MAGNESIUM OXIDE 400 MG TABLET PO (09:27)
--- NOTE | 2025-01-30 09:58 | PM.PN ---
Progress Note: Subjective Subjective Interval history: Patient is feeling much better. Less cough and congestion. Less shortness of breath. Exam Narrative Exam Narrative: [pt is awake and alert. oriented to place, time and person, morbidly obese, coughing throughout the interview. HEENT: [place] conjunctiva and NL buccal mucosa Neck: Supple, no tenderness Endocrine: No Thyromegaly. Vascular: No JVD or carotid bruit. Lymphatic: No cervical lymphadenopathy. Chest: Bilateral wheezing and rhonchi. Much improved compared to yesterday. Heart RRR, no extra sound or murmur. Abd: Soft, no tenderness, no rebound and no rigidity. Increase abd girth therefore clinically I could not exclude the possibility of intra abd mass or organomegaly. LE: No cyanosis or clubbing, no varices or edema. Bilateral nonpitting edema, lymphedema Neuro: A A O. Nl speech, comprehension and attention. Nl and symetrical motor and tone examination through out. Functional impairment overall secondary to morbid obesity. []] Constitutional Vital Signs, click to edit/add: Last Vital Signs Temp 97.5 F L 01/30/25 08:00 Pulse 51 L 01/30/25 08:00 Resp 20 01/30/25 09:00 BP 123/71 01/30/25 08:00 Pulse Ox 93 L 01/30/25 09:00 O2 Del Method Nasal Cannula 01/30/25 09:00 O2 Flow Rate 2 01/30/25 09:00 Progress Note: Objective Labs Labs: Short CBC 01/30/25 Range/Units 05:42 WBC 5.7 (4.0-11.0) 10^3/uL Hgb 11.9 L (12.0-16.0) g/dL Hct 37.7 (36.0-48.0) % Plt Count 244 (150-450) 10^3/uL BMP 01/30/25 05:42 Sodium 142 Potassium 4.3 Chloride 103 Carbon Dioxide 29.9 BUN 27.0 H Creatinine 1.35 H Glucose 132 H Calcium 9.5 Liver Function 01/30/25 Range/Units 05:42 Total Bilirubin 0.3 (0.2-1.0) mg/dL AST 13 L (15-37) U/L ALT 16 (14-59) U/L Alkaline Phosphatase 60 (46-116) U/L Albumin 3.6 (3.4-5.0) g/dL Progress Note: A&P Assessment and Plan (1) Acute hypoxic respiratory failure: (2) Acute exacerbation of COPD with asthma: (3) Acute diastolic heart failure: Plan Acute COPD exacerbation Acute bronchitis Acute diastolic heart failure. Acute heart failure with preserved ejection fraction Acute hypoxic respiratory failure. Saturation dropping to mid 80s with exertion secondary to above. CTA does not show any pulmonary embolism. Patient had stress test 4 months ago which showed normal ejection fraction I excepted to admit patient to the medical floor. I started patient on intravenous diuretics, Solu-Medrol, albuterol and Atrovent. Reduced dose of beta-george to reduce risk of bronchospasm I start patient on doxycycline and cough medication. Counseling about tobacco addiction and the need to stop smoking. Requested to check COVID-19, RSV and influenza. All came back negative. Other potential viruses such as parainfluenza, adenovirus, human metapneumovirus could not be tested here at [place] Patient is feeling much better. Patient is 4 L negative balance. Continue same treatment and potential discharge tomorrow Hypertension and diabetes Resume preadmission home medications with the exception of reducing beta-george dose to reduce bronchospasm. Accu-Chek with sliding scale coverage For blood pressure and blood sugar control. CKD stage III dating back to March 2024 which is the oldest kidney function I have any system. Likely chronic and at baseline. Lower extremities edema Venous study rule out DVT. This came back negative for DVT. DVT prophylaxis with Lovenox 40 mg twice a day. Tobacco addiction Counseling and education to quit smoking NicoDerm patch Anemia, no evidence of acute blood loss. Patient will likely require to have anemia workup to be done in the outpatient setting to be handled by PCP in collaboration with other needed outpatient providers. This may include but not limited to EGD, colonoscopy, referral to see hematology and other needed age-appropriate cancer screening. Chronic, subacute medical conditions not listed above, abnormal labs and imaging. These would need to be addressed. Could be addressed later on or in the outpatient setting by PCP collaboration with other needed outpatient providers when time and condition are appropriate. Continue DNRCC status as desired by the patient and reconfirmed her wishes today.
[2025-01-30] MEDS: FUROSEMIDE 20 MG/2 ML VIAL IVP ×4 (10:19→22:11)
[2025-01-30] MEDS: INSULIN ASPART 300 UNIT/3 ML PEN SUBQ ×2 (11:53→17:39)
[2025-01-30] MEDS: ACETAMINOPHEN 325 MG TABLET 650 MG PO ×2 (12:49→22:10)
[2025-01-30] MEDS: TRAMADOL HCL 50 MG TABLET PO (17:38)
--- NOTE | 2025-01-30 22:23 | RESP.RT ---
Titrated to room air
--- NOTE | 2025-01-30 22:24 | RESP.RT ---
Titrated to room air
[2025-01-31] VITALS (9 sets, daily range): BP systolic 118–134; BP diastolic 61–69; PULSE 54–67; TEMP 36.5–36.8; O2SAT 86–93
[2025-01-31] MEDS: TRAMADOL HCL 50 MG TABLET PO ×2 (03:39→12:16)
--- NOTE | 2025-01-31 04:19 | P.DS_ITS ---
DS: Providers Provider Date of admission: 01/29/25 16:04 Primary care physician: SHANDA MODI DS: Diagnosis Discharge Diagnosis (1) Acute hypoxic respiratory failure: (2) Acute exacerbation of COPD with asthma: (3) Acute diastolic heart failure: Plan As listed above, below and others that are not listed DS: Summary Hospital Course Hospital Course: Mrs. Monae is a 59-year-old female who came in with shortness of breath and tachypnea. She was found to have the following: Acute COPD exacerbation Acute bronchitis Acute diastolic heart failure. Acute heart failure with preserved ejection fraction Acute hypoxic respiratory failure, multifactorial secondary to above. Saturation dropping to mid 80s with exertion secondary to above. CTA does not show any pulmonary embolism. I also suspect that the patient has restrictive lung disease secondary to morbid obesity. She may have also pulmonary hypertension. Last echo completed a year ago was inconclusive in relation to right sided pressure to confirm pulmonary hypertension. Patient had stress test 4 months ago which showed normal ejection fraction I accepted pt to admit patient to the medical floor. I started patient on intravenous diuretics, Solu-Medrol, albuterol and Atrovent. Reduced dose of beta-george to reduce risk of bronchospasm I start patient on doxycycline and cough medication. Counseling about tobacco addiction and the need to stop smoking. Requested to check COVID-19, RSV and influenza. All came back negative. Other potential viruses such as parainfluenza, adenovirus, human metapneumovirus could not be tested here at [place] Patient is feeling much better. Patient is 5.7 L negative balance. Patient will be discharged home on combination of cardio pulmonary medication. Oxygenation is improved. Currently on 1 L. We will evaluate for home oxygen. We will arrange for oxygen if she qualifies. Patient will be instructed to weigh herself every Monday and Patient will be instructed to take Bumex twice a day if she gains more than 3 pounds in 1 week. Hypertension and diabetes Resume preadmission home medications with the exception of reducing beta-george dose to reduce bronchospasm. Furthermore, her heart rate is 60 and recent cardiac cath completed in [place] does not show any coronary artery disease. Accu-Chek with sliding scale coverage For blood pressure and blood sugar control. CKD stage III dating back to March 2024 which is the oldest kidney function I have any system. Likely chronic and at baseline. Lower extremities edema Venous study rule out DVT. This came back negative for DVT. DVT prophylaxis with Lovenox 40 mg twice a day. Tobacco addiction Counseling and education to quit smoking NicoDerm patch Anemia, no evidence of acute blood loss. Patient will likely require to have anemia workup to be done in the outpatient setting to be handled by PCP in collaboration with other needed outpatient pr oviders. This may include but not limited to EGD, colonoscopy, referral to see hematology and other needed age-appropriate cancer screening. Chronic, subacute medical conditions not listed above, abnormal labs and imaging. These would need to be addressed. Could be addressed later on or in the outpatient setting by PCP collaboration with other needed outpatient providers when time and condition are appropriate. Patient has multiple complex medical issues as listed above and others that are not listed. All appear to be stable. Patient is feeling great and requesting to be discharged home. Oxygen saturation had improved. Currently on 1 L. Evaluate for home oxygen. I do not have any clear or strong clinical justification to extend inpatient hospitalization. Patient however will require close and frequent monitoring as well as additional work-up, investigation and therapeutic intervention that could take place from this point on post discharge. That is to prevent relapse, decompensation, rehospitalization and other medical implications.. I instructed patient to ask her primary care doctor to obtain [facility] record entirely to address abnormalities seen on labs and imaging that I have and have not addressed during this hospitalization, follow-up on pending blood work, imaging and pathology is if available and to follow-up on needed medical care in the outpatient setting. Time Spent with Patient Time attestation: Total time spent providing and/or coordinating discharge services: Exam Narrative Exam Narrative: [pt is awake and alert. oriented to place, time and person, morbidly obese, coughing throughout the interview. HEENT: [place] conjunctiva and NL buccal mucosa Neck: Supple, no tenderness Endocrine: No Thyromegaly. Vascular: No JVD or carotid bruit. Lymphatic: No cervical lymphadenopathy. Chest: Complete resolution of the bilateral wheezing and rhonchi. Heart RRR, no extra sound or murmur. Abd: Soft, no tenderness, no rebound and no rigidity. Increase abd girth therefore clinically I could not exclude the possibility of intra abd mass or organomegaly. LE: No cyanosis or clubbing, no varices or edema. Bilateral nonpitting edema, lymphedema Neuro: A A O. Nl speech, comprehension and attention. Nl and symetrical motor and tone examination through out. Functional impairment overall secondary to morbid obesity. []] Constitutional Vital Signs, click to edit/add: Last Vital Signs Temp 97.7 F 01/31/25 03:41 Pulse 60 01/31/25 03:41 Resp 18 01/31/25 03:41 BP 124/67 01/31/25 03:41 Pulse Ox 93 L 01/31/25 03:41 O2 Del Method Nasal Cannula 01/31/25 03:41 O2 Flow Rate 1 01/31/25 03:41 DS: Data Data Completed and Pending Labs on day of discharge: Labs from last 24 hours 01/30/25 01/30/25 01/30/25 21:19 15:45 11:03 WBC RBC Hgb Hct MCV MCH MCHC RDW Plt Count MPV Neut % (Auto) Lymph % (Auto) [place] % (Auto) Eos % (Auto) Baso % (Auto) Neut # (Auto) Lymph # (Auto) [place] # (Auto) Eos # (Auto) Baso # (Auto) Abs Immat Gran (auto) Imm/Tot Granulo (auto) Sodium Potassium Chloride Carbon Dioxide Anion Gap BUN Creatinine Est GFR ( Amer) Est GFR (Non-Af Amer) BUN/Creatinine Ratio Glucose Calcium Magnesium Total Bilirubin AST ALT Alkaline Phosphatase Total Protein Albumin Globulin Albumin/Globulin Ratio POC Glucose 123 H 205 H 191 H 01/30/25 01/30/25 07:59 05:42 WBC 5.7 RBC 4.20 Hgb 11.9 L Hct 37.7 MCV 89.8 MCH 28.3 MCHC 31.6 RDW 13.8 Plt Count 244 MPV 10.6 Neut % (Auto) 82.3 H Lymph % (Auto) 11.3 L [place] % (Auto) 5.3 Eos % (Auto) 0.0 L Baso % (Auto) 0.2 Neut # (Auto) 4.7 Lymph # (Auto) 0.6 L [place] # (Auto) 0.3 Eos # (Auto) 0.0 Baso # (Auto) 0.0 Abs Immat Gran (auto) 0.05 H Imm/Tot Granulo (auto) 0.9 H Sodium 142 Potassium 4.3 Chloride 103 Carbon Dioxide 29.9 Anion Gap 13.4 BUN 27.0 H Creatinine 1.35 H Est GFR ( Amer) 48 L Est GFR (Non-Af Amer) 40 L BUN/Creatinine Ratio 20.0 Glucose 132 H Calcium 9.5 Magnesium 2.3 Total Bilirubin 0.3 AST 13 L ALT 16 Alkaline Phosphatase 60 Total Protein 6.8 Albumin 3.6 Globulin 3.2 Albumin/Globulin Ratio 1.1 POC Glucose 134 H Discharge Plan Discharge Disposition: Home, Self-Care Condition: Fair Discharge Medications: New prednisone 20 mg tablet 40 mg PO DAILY 4 Days Qty: 8 0RF ipratropium-albuterol 0.5 mg-3 mg(2.5 mg base)/3 mL Solution For Nebulization 3 ml inhalation RTTID PRN (Reason: shortness of breath or wheezing) Qty: 90 5RF nicotine 14 mg/24 hr Patch 24 Hour 14 mg transdermal Q24H PRN (Reason: nicotine withdraw) Qty: 28 0RF acetaminophen [Tylenol] 325 mg tablet 325 mg PO Q6H PRN (Reason: fever or pain) Qty: 120 0RF budesonide-formoterol [Symbicort] 160-4.5 mcg/actuation HFA aerosol inhaler 1 inh inhalation BID Qty: 10.2 2RF Continued buspirone 15 mg tablet 15 mg PO BID donepezil 10 mg tablet 10 mg PO DAILY duloxetine 60 mg capsule,delayed release(DR/EC) 60 mg PO DAILY ferrous sulfate [FeroSul] 325 mg (65 mg iron) tablet 325 mg PO DAILY lamotrigine 100 mg tablet 100 mg PO DAILY cetirizine 10 mg tablet 10 mg PO .QD cholecalciferol (vitamin D3) 125 mcg (5,000 unit) tablet 5,000 unit PO .QD cyanocobalamin (vitamin B-12) 1,000 mcg tablet 1,000 mcg PO DAILY omeprazole 40 mg capsule,delayed release(DR/EC) 40 mg PO DAILY magnesium oxide 400 mg (241.3 mg magnesium) tablet 400 mg PO DAILY losartan 25 mg tablet 25 mg PO DAILY hydroxyzine HCl 25 mg tablet 25 mg PO Q8H PRN (Reason: anxiety) dapagliflozin propanediol [Farxiga] 10 mg tablet 10 mg PO DAILY amlodipine 10 mg tablet 10 mg PO .qd bumetanide 1 mg tablet 1 mg PO DAILY Qty: 60 0RF Changed carvedilol 25 mg tablet 12.5 mg PO Q12H Qty: 0 0RF albuterol sulfate 90 mcg/actuation HFA aerosol inhaler 2 puff INHALATION Q6H PRN (Reason: shortness of breath or wheezing) Qty: 6.7 3RF Print Language: Moroccan Activity Restrictions/Additional Instructions: I may not have addressed or treated all of your medical illnesses or the abnormal blood work or imaging studies during this hospitalization. Please ask your primary care provider to obtain [place] records entirely to follow up on all of the abnormal physical, laboratory, and imaging findings that I have not addressed. Please return back to the emergency room or seek medical attention if your sy mptoms worsen or return. I would recommend that you weigh yourself every Monday and . Please increase your Bumex ( bumetanide ) dose up to twice a day instead of once a day if you gain more than 3 pounds. I would recommend that you get blood test called BMP weekly for 4 weeks to monitor your electrolytes and kidney function. This blood test is to be done at your primary care doctor's office Check your blood sugar 3 times a day before meals. Document these numbers on a blood glucose log and bring them with you to your follow-up appointment with your primary care doctor. Communicate with your primary care doctor or health and nutrition specialist if your blood sugar is under 100 or above 300 on 2 consecutive checks. Communicate with your primary care doctor or health and nutrition specialist if you have any questions about your diabetes medications. Signs of a low blood sugar include sweating, racing heart, dizziness and/or weakness. Check your blood sugar if you have any of the symptoms. Discharging you from [place] does not mean that your medical care ends here and now. You may still need additional monitoring, work up, investigation, and treatment plan to be handled from this point on by out patient providers including your primary care provider and specialists. For any medication question, please contact your retail pharmacist or your primary care provider. Thank you. Forms: Portal Instructions Referrals: SHANDA MODI [Primary Care Provider, Family Practice] Follow Up Appointments: 02/05 @ 10am with Shanda Modi NP [phone]
--- NOTE | 2025-01-31 08:45 | CM.NOTE ---
CM in to speak with pt regarding discharge to home. Pt awaiting walk study. CM spoke with pt regarding COPD and chronic disease management. Pt at this time is not active with cane feeder but is interested in seeing pulmonology. CM will get pt information on [facility]. Pt will need referral from PCP. Pt verbalizes understanding. Pt also asking about how to obtain free phone, pt states she will need telephone for emergencies but is unable to afford her telephone at this time d/t costs. Updated HUEY and Patricia will look into this information for pt. Pt will f/u with PCP and get referral from PCP for pulmonary.
[2025-01-31] MEDS: PANTOPRAZOLE SODIUM 40 MG TABLET.DR PO (08:46)
[2025-01-31] MEDS: DAPAGLIFLOZIN 5 MG TABLET 10 MG PO (08:46)
[2025-01-31] MEDS: METHYLPREDNISOLONE SOD SUCC PF 40 MG/ML VIAL IVP (08:46)
[2025-01-31] MEDS: BUSPIRONE HCL 15 MG TABLET PO (08:46)
[2025-01-31] MEDS: MAGNESIUM OXIDE 400 MG TABLET PO (08:46)
[2025-01-31] MEDS: ACETAMINOPHEN 325 MG TABLET 650 MG PO (08:46)
[2025-01-31] MEDS: CARVEDILOL 12.5 MG TABLET PO (08:46)
[2025-01-31] MEDS: LAMOTRIGINE 100 MG TABLET PO (08:46)
[2025-01-31] MEDS: DOXYCYCLINE MONOHYDRATE 100 MG CAPSULE PO (08:46)
[2025-01-31] MEDS: DONEPEZIL HCL 10 MG TABLET PO (08:46)
[2025-01-31] MEDS: AMLODIPINE BESYLATE 5 MG TABLET 10 MG PO (08:46)
[2025-01-31] MEDS: ENOXAPARIN SODIUM 60 MG/0.6 ML SYRINGE SUBQ (08:47)
[2025-01-31] MEDS: FERROUS SULFATE 325 MG TABLET PO (08:47)
[2025-01-31] MEDS: LOSARTAN POTASSIUM 25 MG TABLET PO (08:47)
[2025-01-31] MEDS: IPRATROPIUM/ALBUTEROL SULFATE 3 ML AMPUL.NEB IH (09:18)
--- NOTE | 2025-01-31 09:53 | CM.NOTE ---
I placed a phone call to [facility] [phone] to see if they accept the patients insurance and they do. Will await the results of the walk study.
--- NOTE | 2025-01-31 10:09 | SWNOTE1 ---
See Case management note. Pt did complete home oxygen walk test and did qualify for home oxygen, 2 liters continuous. Pt has [facility] community plan (Medicaid) and has limited options for home oxygen. Referral is being sent to [facility]. Referral includes face sheet, insurance card, dc summary, H&P, walk test and prescription.
--- NOTE | 2025-01-31 10:23 | CM.NOTE ---
CM assisted pt in filling out application for free phone services through [employer]. Pt was approved for phone services and pt will receive an email from [employer] when [employer] card ships for her phone. Pt verbalizes understanding. Pt provided with CM telephone number if she were to have further questions.
--- NOTE | 2025-01-31 11:41 | SWNOTE1 ---
HUEY called and spoke with Cami at [facility]. She voiced they did receive referral and they are working on it. She will call [facility] back with ETA of oxygen tank to hospital. HUEY to update nurse.
--- NOTE | 2025-01-31 12:20 | SWNOTE1 ---
HUEY received a call from Cami at [facility] and they need a initial and date beside the liter flow. global risk management director able to complete. SW refaxed the prescription to Cami at [facility]. Cami did state she is sending the order to medical delivery technician and they will be there within 3 hours. She stated they will be bringing a portable oxygen concentrator that will last all weekend for patient. On Monday they will deliver the rest of the supplies. SW to inform patient. HUEY updated patient on oxygen, nurse in room as well. HUEY advised to call [facility] or HUEY/residential case manager on Monday if no delivery by 3:00pm. She voiced understanding. HUEY did ask if her phone can receive calls? She stated no. Case management did apply for a free phone, see case management note. Pt did provide a phone number that HUEY can give to [facility] so they can contact in regards to delivery. This is a family member's number. HUEY called and spoke with Frances from [facility] and provided her with family member name and phone number. She was able to add in the system and take pt's phone number out.
--- NOTE | 2025-01-31 18:28 | NUTR.NU ---
PO intakes of regular diet are consistently 100% and appear to meet pt?s energy and PRO requirements. No dietary concerns at this time; will continue to monitor PRN.
== END 2025-01-31 14:20 | disposition home or self-care (01) | DRG 140 ==
LOC: ER 09:12 → MS 01-30 06:53
PROVIDERS: Admitting Provider Internal Medicine; Emergency Provider Internal Medicine; PCP Nurse Practitioner Family; Visit Provider Internal Medicine
DX: J44.1 Chronic obstructive pulmonary disease with (acute) exacerbation (principal); J44.0 Chronic obstructive pulmonary disease with (acute) lower respiratory infection; J20.9 Acute bronchitis, unspecified; I50.31 Acute diastolic (congestive) heart failure; J96.01 Acute respiratory failure with hypoxia; E66.01 Morbid (severe) obesity due to excess calories; F17.210 Nicotine dependence, cigarettes, uncomplicated; I13.0 Hypertensive heart and chronic kidney disease with heart failure and stage 1 through stage 4 chronic kidney disease, or unspecified chronic kidney disease; E11.22 Type 2 diabetes mellitus with diabetic chronic kidney disease; N18.30 Chronic kidney disease, stage 3 unspecified; D64.9 Anemia, unspecified; Z87.01 Personal history of pneumonia (recurrent); Z79.899 Other long term (current) drug therapy; Z90.710 Acquired absence of both cervix and uterus; I25.10 Atherosclerotic heart disease of native coronary artery without angina pectoris; Z68.44 Body mass index [BMI] 60.0-69.9, adult; Z66 Do not resuscitate; I27.20 Pulmonary hypertension, unspecified; Z99.81 Dependence on supplemental oxygen
CPT/HCPCS: 36415; 71046; 71275; 80048; 80053; 82948; 83735; 83880; 84484; 85025; 87420; 87804; 87811; 93005; 93970; 94640; 94761; 96374; 99285; 99406; J1650; J1938; J2919; Q9967